=== PATIENT | male | born 1950 | race Caucasian/White ===

== ENCOUNTER → 2017-08-11 12:05 | Outpatient (CLI) | payer MEDICARE, OTHER, SELFPAY ==
[2017-08-11 13:21] LABS: Amphetamine Urine VISTA NEGATIVE (<1000 ng/mL); Barbiturate Urine VISTA NEGATIVE (< 200 ng/mL); Benzodiazepine Urine VISTA NEGATIVE (< 200 ng/mL); Cocaine Urine VISTA NEGATIVE (< 300 ng/mL); Ecstacy Urine VISTA NEGATIVE (< 500 ng/mL); Methadone Urine VISTA NEGATIVE (< 300 ng/mL); PCP Urine VISTA NEGATIVE (< 25 ng/mL); THC Urine VISTA NEGATIVE (< 50 ng/mL); Vista UDS pH Range 5
== END ==
PROVIDERS: Visit Provider Anesthesiology Pain Medicine
DX: F11.20 Opioid dependence, uncomplicated (principal)
CPT/HCPCS: 80307

== ENCOUNTER → 2019-12-07 15:59 | Outpatient (CLI) | payer MEDICARE, SELFPAY ==
[2013-05-03 09:40] VITALS: BMI 42.3
[2019-12-07 16:47] LABS: Amphetamine Urine VISTA NEGATIVE (<1000 ng/mL); Barbiturate Urine VISTA NEGATIVE (< 200 ng/mL); Benzodiazepine Urine VISTA NEGATIVE (< 200 ng/mL); Cocaine Urine VISTA NEGATIVE (< 300 ng/mL); Ecstacy Urine VISTA NEGATIVE (< 500 ng/mL); Methadone Urine VISTA NEGATIVE (< 300 ng/mL); PCP Urine VISTA NEGATIVE (< 25 ng/mL); THC Urine VISTA NEGATIVE (< 50 ng/mL); Vista UDS pH Range 6
== END ==
PROVIDERS: Referring Provider Anesthesiology Pain Medicine; Visit Provider Anesthesiology Pain Medicine
DX: F11.20 Opioid dependence, uncomplicated (principal)
CPT/HCPCS: 80307

== ENCOUNTER → 2020-07-03 16:03 | Outpatient (CLI) | payer MEDICARE, MEDICAID, SELFPAY ==
[2013-05-03 09:40] VITALS: BMI 42.3
[2020-07-03 17:16] LABS: Amphetamine Urine VISTA NEGATIVE (<1000 ng/mL); Barbiturate Urine VISTA NEGATIVE (< 200 ng/mL); Benzodiazepine Urine VISTA NEGATIVE (< 200 ng/mL); Cocaine Urine VISTA NEGATIVE (< 300 ng/mL); Ecstacy Urine VISTA NEGATIVE (< 500 ng/mL); Methadone Urine VISTA NEGATIVE (< 300 ng/mL); PCP Urine VISTA NEGATIVE (< 25 ng/mL); THC Urine VISTA NEGATIVE (< 50 ng/mL); Vista UDS pH Range 5
== END ==
PROVIDERS: Referring Provider Anesthesiology Pain Medicine; Visit Provider Anesthesiology Pain Medicine
DX: F11.20 Opioid dependence, uncomplicated (principal)
CPT/HCPCS: 80307

== ENCOUNTER 2022-11-06 14:09 | Emergency (ER) | payer MEDICARE, MEDICAID, SELFPAY ==
[2022-11-06 14:11] VITALS: BP 151/76; PULSE 81; RESP 20; TEMP 36.6; O2SAT 94; BMI 48.2
--- NOTE | 2022-11-06 15:26 | EX.ED.VISEXT ---
HPI <BRANT Chávez - Last Filed: 11/06/22 17:14> History of Present Illness Chief Complaint: Bite Narrative Narrative: Patient presenting today due concerns for an infection to the posterior aspect of his left hand. He reports that he was scratched by his son's cat on 11/04/2022, the cat did not bite him. Since then, the area has became more red and slightly edematous. He has not noticed any streaking. He has not had any fevers, chills, abdominal pain, nausea, or vomiting. He reports a history of diabetes mellitus. Tetanus is up-to-date. ROS <BRANT Chávez - Last Filed: 11/06/22 17:14> ROS ED Constitutional Constitutional ED: Denies chills or fever(s) Cardiovascular Cardiovascular: Denies chest pain Respiratory/Chest Respiratory/Chest: Denies cough or dyspnea Gastrointestinal Gastrointestinal: Denies abdominal pain, nausea or vomiting Musculoskeletal Musculoskeletal: Reports arthralgias; Denies myalgias Integumentary Reports Abrasions; Denies abscess Neurologic Neurologic: Denies paresthesias or weakness PFSH <BRANT Chávez - Last Filed: 11/06/22 17:14> [facility] Medical History Dementia Diabetes Gout HTN (hypertension) Kidney disease Home Medications Klor-Con M10 20 meq PO DAILY 05/03/13 [History Last Taken Unknown] allopurinol 100 mg tablet 100 mg PO DAILYCM 05/03/13 [History Last Taken Unknown] buspirone 15 mg tablet 37.5 mg PO DAILY 05/03/13 [History Last Taken Unknown] celecoxib 200 mg capsule 200 mg PO DAILY 05/03/13 [History Last Taken Unknown] clonazepam 2 mg tablet (Klonopin) 2 mg PO BID 05/03/13 [History Last Taken Unknown] fenofibrate nanocrystallized 145 mg tablet 145 mg PO DAILY 05/03/13 [History Last Taken Unknown] fentanyl 25 mcg/hr transdermal patch 25 mcg TRANSDERM. Q72H 05/03/13 [History Last Taken Unknown] furosemide 40 mg tablet 40 mg PO DAILY 05/03/13 [History Last Taken Unknown] gabapentin 800 mg tablet 800 mg PO TIDCM 05/03/13 [History Last Taken Unknown] metformin 500 mg tablet 500 mg PO TIDCM 05/03/13 [History Last Taken Unknown] sryzcrmc-zsg-aiisc acid 0.4 mg-lycopene 300 mcg-lutein 250 mcg tablet (Centrum Silver) 1 ea PO DAILY 05/03/13 [History Last Taken Unknown] orphenadrine citrate 100 mg tablet,extended release 100 mg PO BID 05/03/13 [History Last Taken Unknown] ramipril 10 mg capsule 10 mg PO DAILY 05/03/13 [History Last Taken Unknown] rosuvastatin 10 mg tablet 10 mg PO DAILY 05/03/13 [History Last Taken Unknown] warfarin 4 mg tablet (Jantoven) 4 mg PO DAILY 05/03/13 [History Last Taken Unknown] cephalexin 500 mg capsule 500 mg PO Q6 7 days #28 CAPSULES 11/06/22 [Rx Last Taken Unknown] Allergy/AdvReac Type Severity Reaction Status Date / Time ibuprofen AdvReac Abd Verified 11/06/22 14:17 cramps/diarrhea Surgical History H/O knee surgery History of left shoulder replacement Social History Smoking Status: Never smoker EXAM <BRANT Chávez - Last Filed: 11/06/22 17:14> Physical Exam Const Vital Signs: 11/06/22 14:11 11/06/22 16:37 Temperature 98 F 97.8 F Temperature Source Temporal Oral Pulse Rate 81 72 Respiratory Rate 20 H 18 Blood Pressure 151/76 H 154/91 H Blood Pressure Mean 101 112 Pulse Ox 94 96 Oxygen Delivery Method Room Air Room Air Positive well nourished, well developed and no apparent distress General Appearance ED: well developed HEENT Reports normocephalic and head/scalp atraumatic Mouth ED: Yes moist mucous membranes normal Eyes PERRL and EOMs intact bilaterally Neck full ROM and supple Chest Wall inspection of chest normal Resp normal respiratory effort and clear to auscultation bilaterally Cardio regular rate and regular rhythm GI soft to palpation, non-tender, non-distended and no masses Back/Spine normal ROM and normal to inspection Extremity normal to inspection and full ROM Extremity Narrative: Erythema to the dorsal aspect of the left hand. Scabbed laceration to the dorsal aspect of the hand. No lymphangitic streaking. Radial pulses 2+ and equal bilaterally, good capillary refill, sensation intact. full range of motion to the wrist and fingers. Neuro oriented x3, CN's II-XII intact bilaterally, moves all extremities, no focal motor deficits and no sensory deficits noted Sensorium / Orientation: awake and alert Psych mental status grossly normal and thought process normal <Dr. Beni Milian MD - Last Filed: 11/08/22 14:57> Physical Exam Const Vital Signs: 11/06/22 14:11 11/06/22 16:37 Temperature 98 F 97.8 F Temperature Source Temporal Oral Pulse Rate 81 72 Respiratory Rate 20 H 18 Blood Pressure 151/76 H 154/91 H Blood Pressure Mean 101 112 Pulse Ox 94 96 Oxygen Delivery Method Room Air Room Air MDM <BRANT Chávez - Last Filed: 11/06/22 17:14> [facility] MDM Narrative Medical decision making narrative: Please presenting today due to concerns for an infection to the dorsal aspect of his left hand after he was scratched by his son's house cat 11/04/2022. He does have erythema to the dorsal aspect of his left hand with a scabbed scratch qu[place]. He does not have any exam findings that would be concerning for cat scratch fever. Because he is a diabetic, labs obtained and are unremarkable aside from hyperglycemia. He was given a dose of Ancef here. He will be discharged home in stable condition with Keflex and is to follow-up with his PCP. He has been given return instructions and is comfortable with plan. Lab Data Labs: Laboratory Results - last 24 hr 11/06/22 15:25 WBC 6.3 RBC 4.45 L Hgb 13.8 Hct 42.1 MCV 94.6 H MCH 31.0 MCHC 32.8 RDW Std Deviation 52.6 H RDW Coeff of Veronica 15.2 H Plt Count 106 L MPV 8.8 Immature Gran % (Auto) 1.300 H Neut % (Auto) 70.7 H Lymph % (Auto) 18.3 L [place] % (Auto) 6.4 Eos % (Auto) 2.7 Baso % (Auto) 0.6 Absolute Neuts (auto) 4.4 Absolute Lymphs (auto) 1.15 Nucleated RBC % 0 Sodium 137 Potassium 4.2 Chloride 104 Carbon Dioxide 29.0 Anion Gap 4 L BUN 16 Creatinine 1.38 H Estim Creat Clear Calc 47.67 Est GFR (MDRD) Af Amer 65 Est GFR (MDRD) Non-Af 54 L BUN/Creatinine Ratio 11.6 Glucose 310 H Calcium 8.6 <Dr. Beni Milian MD - Last Filed: 11/08/22 14:57> [facility] Lab Data Attestation: I reviewed the patient's lab results. Labs: Laboratory Results - last 24 hr 11/06/22 15:25 WBC 6.3 RBC 4.45 L Hgb 13.8 Hct 42.1 MCV 94.6 H MCH 31.0 MCHC 32.8 RDW Std Deviation 52.6 H RDW Coeff of Veronica 15.2 H Plt Count 106 L MPV 8.8 Immature Gran % (Auto) 1.300 H Neut % (Auto) 70.7 H Lymph % (Auto) 18.3 L [place] % (Auto) 6.4 Eos % (Auto) 2.7 Baso % (Auto) 0.6 Absolute Neuts (auto) 4.4 Absolute Lymphs (auto) 1.15 Nucleated RBC % 0 Sodium 137 Potassium 4.2 Chloride 104 Carbon Dioxide 29.0 Anion Gap 4 L BUN 16 Creatinine 1.38 H Estim Creat Clear Calc 47.67 Est GFR (MDRD) Af Amer 65 Est GFR (MDRD) Non-Af 54 L BUN/Creatinine Ratio 11.6 Glucose 310 H Calcium 8.6 Treatment and Re-Evaluation Narrative: Seen and evaluated independently and in conjunction with physician editorial assistant. Agree with notes above unless documented otherwise. Scratched by his cat 2 days ago, on the left hand. Has gradually become more red, swollen, painful. No discharge or bleeding. No fevers or systemic symptoms. Is a poorly controlled diabetic. Was not bitten by the cat. Exam: Swollen erythematous tender area on the dorsum of the left hand without lymphangitis or abscess. There are healing scratch haro without active bleeding or discharge expressible. Full range of motion of the hand and the fingers without difficulty. No epitrochlear or axillary lymphadenopathy palpable. Plan: Labs, antibiotics, suspect discharge home with close outpatient follow-up. Does not necessarily look like cat scratch fever, so I think reasonable to cover regular strep and staph rather than Bartonella at this time. Discharge Plan Triage Chief Complaint: Bite ED Midlevel Provider: Elicia Blair ED Provider: Beni Milian Dx/Rx/DC Orders Clinical Impression: Cellulitis, Cat scratch of left hand with infection Instructions: Animal Bites and Scratches, ED Cellulitis Prescriptions: New cephalexin 500 mg capsule 500 mg PO Q6 7 Days Qty: 28 0RF No Action celecoxib 200 MG capsule 200 mg PO DAILY furosemide 40 MG tablet 40 mg PO DAILY metformin 500 MG tablet 500 mg PO TIDCM allopurinol 100 MG tablet 100 mg PO DAILYCM warfarin [Jantoven] 4 MG tablet 4 mg PO DAILY gabapentin 800 MG tablet 800 mg PO TIDCM clonazepam [Klonopin] 2 MG tablet 2 mg PO BID orphenadrine citrate 100 MG tablet 100 mg PO BID fentanyl 25 MCG patch 25 mcg TRANSDERM. Q72H ramipril 10 MG capsule 10 mg PO DAILY buspirone 15 MG tablet 37.5 mg PO DAILY rosuvastatin 10 MG tablet 10 mg PO DAILY xbtfxamm-xgf-OE-lycopen-lutein [Centrum Silver] 1 EACH tablet 1 ea PO DAILY fenofibrate nanocrystallized 145 MG tablet 145 mg PO DAILY Klor-Con M10 20 MEQ tablet 20 meq PO DAILY Primary Care Provider: Care Physician,No Primary Referrals: Care Physician,No Primary [Primary Care Provider] - Activity Restrictions/Additional Instructions: Please follow-up with your doctor in 3 to 5 days return for any worsening of symptoms. Disposition Disposition: Home, Self Care Discharge Date/Time: 11/06/22 17:20
[2022-11-06 15:32] LABS: Absolute Lymphocyte Count 1.15 X10^3/uL (0.83-4.51); Absolute Neutrophil Count 4.4 X10^3/uL (2.0-7.7); Basophil# 0.04 X10^3/uL; Basophil% 0.6 % (0-1); Eosinophil# 0.17 X10^3/uL; Eosinophils% 2.7 % (0-5); Hematocrit 42.1 % (40-54); Hemoglobin 13.8 g/dL (13.0-16.5); Lymphocyte # 1.15 X10^3/ul (0.83-4.51); Lymphocyte % 18.3 % (19-41); Mean Corp Hgb Conc 32.8 g/dL (32-36); Mean Corpuscular Volume 94.6 fL (80-94); Mean Platelet Vol. 8.8 fl (6.2-12.0); Monocyte% 6.4 % (0-10); NRBC Flagged by Analyzer 0 % (0-5); Neutrophil # 4.43 X10^3/uL (2.7-7.7); Neutrophil % 70.7 % (47-70); Platelet Count 106 K/mm3 (150-450); RBC Distribution Width CV 15.2 % (11.6-14.6); RBC Distribution Width SD 52.6 fl (35.1-43.9); Red Blood Count 4.45 M/mm3 (4.6-6.2); White Blood Count 6.3 K/mm3 (4.4-11.0)
[2022-11-06 15:44] LABS: Anion Gap 4 (5-15); BUN 16 mg/dL (7-18); BUN/Creat Ratio 11.6 RATIO (10-20); Calcium,Total 8.6 mg/dL (8.5-10.1); Chloride 104 mmol/L (98-107); Creatinine, Serum 1.38 mg/dL (0.70-1.30); EST Glomerular Filtration Rate 54 mL/min (>60); Est Glom Filt Rate - Afr Amer 65 mL/min (>60); Estimated Creatinine Clearance 47.67 ml/min; Glucose 310 mg/dL (74-106); Potassium 4.2 mmol/L (3.5-5.1); Sodium Level 137 mmol/L (136-145)
[2022-11-06] MEDS: Cefazolin 1 GM/50 ML BAG IV (16:31)
[2022-11-06 16:37] VITALS: BP 154/91; PULSE 72; RESP 18; TEMP 36.6; O2SAT 96
== END 2022-11-06 17:20 | disposition home or self-care (01) ==
PROVIDERS: Physician Assistant; Emergency Provider Emergency Medicine; Visit Provider Emergency Medicine
DX: L03.114 Cellulitis of left upper limb (principal); E11.65 Type 2 diabetes mellitus with hyperglycemia; I10 Essential (primary) hypertension; Z79.899 Other long term (current) drug therapy; Z79.84 Long term (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 of oral hypoglycemic drugs; W55.03XA Scratched by cat, initial encounter; B99.8 Other infectious disease
CPT/HCPCS: 80048; 85025; 96365; 99285; J7050

== ENCOUNTER 2024-03-18 10:51 | Emergency (ER) | payer MEDICARE, MEDICAID, SELFPAY ==
[2024-03-18 10:52] VITALS: BP 158/69; PULSE 79; RESP 18; TEMP 36.6; O2SAT 95; BMI 46.9
[2024-03-18 10:56] VITALS: BP 158/69; PULSE 81; RESP 18; TEMP 36.6; O2SAT 96
--- NOTE | 2024-03-18 11:27 | EX.ED.DYSGE1 ---
HPI <BRANT Chávez - Last Filed: 03/18/24 16:15> History of Present Illness Chief Complaint: Wound Narrative Narrative: Patient presenting today due to a wound that he has had to the dorsum of his left foot for about 3 to 4 months, he reports that it is progressively worsening. He also reports that he has had a nonproductive cough for over a week. His encouraged him to come in to be evaluated. He has never seen his doctor or a speech pathology supervisor for this wound, it is being managed at home. He denies any fevers, chills, shortness of breath, chest pain, abdominal pain, nausea, and vomiting. He does have a history of T2DM, HTN, HLD, and CKD. [facility] <BRANT Chávez - Last Filed: 03/18/24 16:15> [facility] Medical History Kidney disease Gout Dementia Diabetes HTN (hypertension) Home Medications ?Medication ?Instructions ?Recorded ?Last Taken ?Type allopurinol 100 mg tablet 100 mg PO DAILYCM 05/03/13 Unknown History gabapentin 800 mg tablet 800 mg PO TIDCM 05/03/13 Unknown History vsuvuncb-nxt-cucgx acid 0.4 1 ea PO DAILY 05/03/13 Unknown History mg-lycopene 300 mcg-lutein 250 mcg tablet (Centrum Silver) rosuvastatin 10 mg tablet 10 mg PO DAILY 05/03/13 Unknown History albuterol sulfate 90 mcg/actuation 2 puff inhalation PRN sob 03/18/24 Unknown History aerosol inhaler atorvastatin 10 mg tablet 10 mg PO QPM 03/18/24 Unknown History donepezil 10 mg tablet 10 mg PO QHS 03/18/24 Unknown History dulaglutide 3 mg/0.5 mL 3 mg subcut QWEEK 03/18/24 Unknown History subcutaneous pen injector (Trulicity) duloxetine 60 mg capsule,delayed 60 mg PO DAILY 03/18/24 Unknown History release empagliflozin 25 mg tablet 25 mg PO DAILY 03/18/24 Unknown History (Jardiance) ezetimibe 10 mg tablet 10 mg PO DAILY 03/18/24 Unknown History glipizide 10 mg tablet, extended 10 mg PO DAILY 03/18/24 Unknown History release 24 hr insulin glargine 100 unit/mL (3 75 unit subcut QPM 03/18/24 Unknown History mL) subcutaneous pen (Basaglar KwikPen U-100 Insulin) levothyroxine 50 mcg tablet 50 mcg PO DAILY 03/18/24 Unknown History lisinopril 2.5 mg tablet 2.5 mg PO DAILY 03/18/24 Unknown History pramipexole 0.125 mg tablet 0.125 mg PO BID 03/18/24 Unknown History quetiapine 100 mg tablet 100 mg PO BID 03/18/24 Unknown History quetiapine 50 mg tablet 50 mg PO DAILY 03/18/24 Unknown History rivaroxaban 20 mg tablet (Xarelto) 20 mg PO DAILY 03/18/24 Unknown History tizanidine 4 mg tablet 4 mg PO QPM 03/18/24 Unknown History tramadol 50 mg tablet 50 mg PO 4X/DAY PRN PRN pain 03/18/24 Unknown History trazodone 50 mg tablet 100 mg PO BID 03/18/24 Unknown History Allergy/AdvReac Type Severity Reaction Status Date / Time ibuprofen AdvReac Abd Verified 03/18/24 10:57 cramps/diarrhea Surgical History History of left shoulder replacement H/O knee surgery Social History Smoking Status: Never smoker ROS <BRANT Chávez - Last Filed: 03/18/24 16:15> ROS ED Constitutional Constitutional ED: Denies chills or fever(s) Cardiovascular Cardiovascular: Denies chest pain Respiratory/Chest Respiratory/Chest: Reports cough; Denies dyspnea, tachypnea or wheezing Gastrointestinal Gastrointestinal: Denies abdominal pain, nausea or vomiting Musculoskeletal Musculoskeletal: Denies arthralgias or myalgias Integumentary Reports other Details: Chronic left foot wound Neurologic Neurologic: Denies weakness EXAM <BRANT Chávez - Last Filed: 03/18/24 16:15> Physical Exam Const Vital Signs: 03/18/24 10:52 03/18/24 10:56 03/18/24 11:56 Temperature 97.8 F 97.8 F 98.2 F Temperature Source Oral Oral Oral Pulse Rate 79 81 77 Respiratory Rate 18 18 16 Blood Pressure 158/69 H 158/69 H 140/66 H Blood Pressure Mean 98 98 90 Pulse Ox 95 96 94 Oxygen Delivery Method Room Air Room Air Room Air 03/18/24 12:00 03/18/24 13:02 Temperature 98.2 F 97.9 F Temperature Source Oral Temporal Pulse Rate 76 69 Respiratory Rate 14 21 H Blood Pressure 140/66 H 140/55 H Blood Pressure Mean 90 83 Pulse Ox 95 97 Oxygen Delivery Method Room Air Room Air Positive well nourished, well developed and no apparent distress General Appearance ED: well developed HEENT Reports normocephalic and head/scalp atraumatic Mouth ED: Yes moist mucous membranes normal Eyes PERRL and EOMs intact bilaterally Neck full ROM and supple Chest Wall inspection of chest normal Resp normal respiratory effort and clear to auscultation bilaterally Cardio regular rate and regular rhythm GI soft to palpation, non-tender, non-distended and no masses Back/Spine normal ROM and normal to inspection Extremity full ROM Extremity Narrative: Ulcerative wound to the dorsum of the left foot with eschar and minimal surrounding erythema, no purulent discharge noted. Neuro oriented x3, CN's II-XII intact bilaterally, moves all extremities, no focal motor deficits and no sensory deficits noted Sensorium / Orientation: awake and alert Psych mental status grossly normal and thought process normal Skin Skin Narrative: Ulcerative wound left foot Rashes: No rashes noted <Dr. Aviva Brandt DO - Last Filed: 03/18/24 16:07> Physical Exam Const Vital Signs: 03/18/24 10:52 03/18/24 10:56 03/18/24 11:56 Temperature 97.8 F 97.8 F 98.2 F Temperature Source Oral Oral Oral Pulse Rate 79 81 77 Respiratory Rate 18 18 16 Blood Pressure 158/69 H 158/69 H 140/66 H Blood Pressure Mean 98 98 90 Pulse Ox 95 96 94 Oxygen Delivery Method Room Air Room Air Room Air 03/18/24 12:00 03/18/24 13:02 Temperature 98.2 F 97.9 F Temperature Source Oral Temporal Pulse Rate 76 69 Respiratory Rate 14 21 H Blood Pressure 140/66 H 140/55 H Blood Pressure Mean 90 83 Pulse Ox 95 97 Oxygen Delivery Method Room Air Room Air MDM <BRANT Chávez - Last Filed: 03/18/24 16:15> [facility] MDM Narrative Medical decision making narrative: Patient presenting today due to a cough and wound to his left foot. He initially told me that he has had the wound on his foot for a few weeks, however, he is a poor historian, his did arrive to the ED and reported that the wound has been on his foot over the past 2 or 3 days and was caused by new slippers that he had been wearing. He also has had a cough for about a week. He had a outpatient chest x-ray that showed pneumonia and was prescribed doxycycline which has not been picked up yet from the pharmacy. He does have a speech pathology supervisor that he can see. The wound is located on the dorsum of his left foot and has surrounding erythema, there is eschar, some of this was deroofed today and I did not notice any purulent discharge beneath it. Labs were obtained, ESR and CRP slightly elevated, creatinine and BUN slightly elevated in comparison to previous labs. Chest x-ray obtained, does not show any evidence of pneumonia. Left foot x-ray does not show any evidence of osteomyelitis. I recommended that he begin taking the doxycycline to cover both his foot and lung infection. He is to follow-up with the speech pathology supervisor within the next week. He will be discharged home in stable condition. Return instructions were discussed. Lab Data Attestation: I reviewed the patient's lab results. Lab results narrative: Platelet count 112, ESR 424, BUN 25, creatinine 1.87, glucose 199, CRP 26 Labs: Laboratory Results - last 24 hr 03/18/24 11:26 WBC 6.9 RBC 4.34 L Hgb 13.7 Hct 41.8 MCV 96.3 H MCH 31.6 MCHC 32.8 RDW Std Deviation 53.0 H RDW Coeff of Veronica 15.0 H Plt Count 112 L MPV 9.4 Immature Gran % (Auto) 1.000 H Neut % (Auto) 67.4 Lymph % (Auto) 21.2 [place] % (Auto) 7.5 Eos % (Auto) 2.3 Baso % (Auto) 0.6 Absolute Neuts (auto) 4.7 Absolute Lymphs (auto) 1.47 Nucleated RBC % 0 ESR 24 H Sodium 136 Potassium 4.8 Chloride 107 Carbon Dioxide 24.0 Anion Gap 5 BUN 25 H Creatinine 1.87 H Estim Creat Clear Calc 49.07 Est GFR (MDRD) Af Amer 46 L Est GFR (MDRD) Non-Af 38 L BUN/Creatinine Ratio 13.4 Glucose 199 H Calcium 9.2 C-React Prot Ext Range 26.00 H Radiography X-Ray: Read by ED Physician Diagnostic Testing: Clinical Impression(s) from Imaging Studies Chest X-Ray 03/18/24 11:30 IMPRESSION: Normal x-ray examination of the chest. Electronically Signed: Azar Hsu MD at 12:32 EST , <Dr. Aviva Brandt, DO - Last Filed: 03/18/24 16:07> [facility] MDM Narrative Medical decision making narrative: Patient presenting today due to a cough and wound to his left foot. He initially told me that he has had the wound on his foot for a few weeks, however, he is a poor historian, his did arrive to the ED and reported that the wound has been on his foot over the past 2 or 3 days and was caused by new slippers that he had been wearing. He also has had a cough for about a week. He had a outpatient chest x-ray that showed pneumonia and was prescribed doxycycline which has not been picked up yet from the pharmacy. He does have a speech pathology supervisor that he can see. The wound is located on the dorsum of his left foot and has surrounding erythema, there is eschar, some of this was deroofed today and I did not notice any purulent discharge beneath it. Labs were obtained, ESR and CRP slightly elevated, creatinine and BUN slightly elevated in comparison to previous labs. Chest x-ray obtained, does not show any evidence of pneumonia. Left foot x-ray does not show any evidence of osteomyelitis. I recommended that he begin taking the doxycycline to cover both his foot and lung infection. He is to follow-up with the speech pathology supervisor within the next week. He will be discharged home in stable condition. Return instructions were discussed. Karly I have personally performed a face to face assessment of the patient and have reviewed the FARHAT Note. I performed a substantive portion of the visit including all aspects of the following. My valdivia findings include: History is patient is a 73-year-old male with history of diabetes, peripheral neuropathy, hypertension and chronic anticoagulation on Xarelto. He is presenting to the ER for a wound on his the dorsal aspect of his left foot that initially he told staff had been there for couple months with the is now at the bedside and states it has been there for 2 weeks. In addition he has had a cough. Apparently he had an outpatient chest x-ray that was performed yesterday and they were told he has pneumonia and he was sent and antibiotics. not sure which antibiotics lower. Ultimately was determined it was doxycycline. Patient is minimally ambulatory at baseline and is not hypoxic at rest. Chest x-ray reviewed by myself as well as radiology does not show any acute infiltrate. Physical exam patient is in no acute respiratory distress. He has clear breath sounds. He is not coughing at this time. Abdomen soft nontender. Heart regular rate and rhythm. No peripheral edema appreciated. Patient does have proximately 2 cm eschar on the dorsum of the foot with no underlying fluctuance. There is surrounding erythema and induration. No associate lymphangitic streaking. Well patient is notable leukocytosis he does have a mild left shift. His CRP is mildly elevated at 26 and he has a creatinine that is elevated 1.87 however this appears to be near the patient's baseline (was 1.38 over a year ago). Patient is mildly hyperglycemic with a glucose of 199 today. He has a normal anion gap and normal bicarb. X-ray of the foot does not show any acute fracture, free air or bony lesions concerning for osteomyelitis. Patient will continue taking his doxycycline which will cover for a cellulitis of the foot as well as for this pneumonia that was diagnosed on outpatient x-ray. Wound is deroofed by PA however there is no underlying abscess or purulence thankfully. Patient will follow-up outpatient with his speech pathology supervisor as well. Lab Data Labs: Laboratory Results - last 24 hr 03/18/24 11:26 WBC 6.9 RBC 4.34 L Hgb 13.7 Hct 41.8 MCV 96.3 H MCH 31.6 MCHC 32.8 RDW Std Deviation 53.0 H RDW Coeff of Veronica 15.0 H Plt Count 112 L MPV 9.4 Immature Gran % (Auto) 1.000 H Neut % (Auto) 67.4 Lymph % (Auto) 21.2 [place] % (Auto) 7.5 Eos % (Auto) 2.3 Baso % (Auto) 0.6 Absolute Neuts (auto) 4.7 Absolute Lymphs (auto) 1.47 Nucleated RBC % 0 ESR 24 H Sodium 136 Potassium 4.8 Chloride 107 Carbon Dioxide 24.0 Anion Gap 5 BUN 25 H Creatinine 1.87 H Estim Creat Clear Calc 49.07 Est GFR (MDRD) Af Amer 46 L Est GFR (MDRD) Non-Af 38 L BUN/Creatinine Ratio 13.4 Glucose 199 H Calcium 9.2 C-React Prot Ext Range 26.00 H Radiography Diagnostic Testing: Clinical Impression(s) from Imaging Studies Chest X-Ray 03/18/24 11:30 IMPRESSION: Normal x-ray examination of the chest. Electronically Signed: Azar Hsu MD at 12:32 EST , Discharge Plan Triage Chief Complaint: Wound ED Midlevel Provider: Elicia Blair ED Provider: Aviva Brandt Dx/Rx/DC Orders Clinical Impression: Wound of foot, Cough Instructions: Acute Bronchitis, ED Wound Check (Infection) Prescriptions: No Action allopurinol 100 MG tablet 100 mg PO DAILYCM gabapentin 800 MG tablet 800 mg PO TIDCM rosuvastatin 10 MG tablet 10 mg PO DAILY Centrum Silver 1 EACH tablet 1 ea PO DAILY albuterol sulfate 90 mcg/actuation HFA aerosol inhaler 2 puff inhalation PRN donepezil 10 mg tablet 10 mg PO QHS Trulicity 3 mg/0.5 mL pen injector 3 mg subcut QWEEK duloxetine 60 mg capsule,delayed release(DR/EC) 60 mg PO DAILY lisinopril 2.5 mg tablet 2.5 mg PO DAILY pramipexole 0.125 mg tablet 0.125 mg PO BID quetiapine 100 mg tablet 100 mg PO BID quetiapine 50 mg tablet 50 mg PO DAILY trazodone 50 mg tablet 100 mg PO BID tizanidine 4 mg tablet 4 mg PO QPM tramadol 50 mg tablet 50 mg PO 4X/DAY PRN PRN (Reason: pain) Xarelto 20 mg tablet 20 mg PO DAILY Rx Instructions: must administer with evening meal atorvastatin 10 mg tablet 10 mg PO QPM ezetimibe 10 mg tablet 10 mg PO DAILY glipizide 10 mg tablet extended release 24hr 10 mg PO DAILY Jardiance 25 mg tablet 25 mg PO DAILY levothyroxine 50 mcg tablet 50 mcg PO DAILY insulin glargine [Basaglar KwikPen U-100 Insulin] 100 unit/mL (3 mL) insulin pen 75 unit subcut QPM Primary Care Provider: Care Physician,No Primary Referrals: Care Physician,No Primary [Primary Care Provider] - Activity Restrictions/Additional Instructions: Please follow-up with the speech pathology supervisor in the next 5 to 7 days and return for any worsening of your symptoms. Print Language: Telugu Disposition Disposition: Home, Self Care Discharge Date/Time: 03/18/24 13:37
--- NOTE | 2024-03-18 11:30 | RAD_ITS ---
STUDY: X-RAY CHEST REASON FOR EXAM: Male, 73 years old. cough TECHNIQUE: Single AP portable view of the chest. COMPARISON: None. FINDINGS: The lungs are clear and expanded. There is no demonstrated pleural abnormality. Normal size heart. Normal mediastinum and clifford. Normal visualized pulmonary arteries. Normal visualized aortic arch and descending thoracic aorta. Normal visualized thoracic spine. Status post left shoulder replacement. There is no demonstrated abnormality of the visualized soft tissue structures of the upper abdomen. RAD/Chest PA and Lateral IMPRESSION: Normal x-ray examination of the chest. Electronically Signed: Azar Hsu MD at 12:32 EST ,
--- NOTE | 2024-03-18 11:30 | RAD_ITS ---
STUDY: X-RAY - LEFT FOOT CLINICAL: Male, 73 years old. Dorsal wound. TECHNIQUE: 3 view(s) of the foot. COMPARISON: None. FINDINGS: Calcaneal spurs. Normal visualized subtalar, talonavicular, calcaneocuboid, tarsal and tarsometatarsal articulations. Normal metatarsi. There is degenerative arthrosis of the metatarsophalangeal joint of the hallux . Normal tibial and fibular sesamoid bones. Normal interphalangeal joint of the great toe. Normal phalanges of the great toe. Normal second through fifth metatarsophalangeal joints. Normal interphalangeal joints and phalanges of the lesser toes. Soft tissue swelling. Vascular calcification. RAD/Foot min 3 Views IMPRESSION: Soft tissue swelling and vascular calcification. Electronically Signed: Azar Hsu MD at 12:32 EST ,
[2024-03-18 11:42] LABS: Absolute Lymphocyte Count 1.47 X10^3/uL (0.83-4.51); Absolute Neutrophil Count 4.7 X10^3/uL (2.0-7.7); Basophil# 0.04 X10^3/uL; Basophil% 0.6 % (0-1); Eosinophil# 0.16 X10^3/uL; Eosinophils% 2.3 % (0-5); Hematocrit 41.8 % (40-54); Hemoglobin 13.7 g/dL (13.0-16.5); Lymphocyte # 1.47 X10^3/ul (0.83-4.51); Lymphocyte % 21.2 % (19-41); Mean Corp Hgb Conc 32.8 g/dL (32-36); Mean Corpuscular Hgb 31.6 pg (27.0-32.0); Mean Corpuscular Volume 96.3 fL (80-94); Mean Platelet Vol. 9.4 fl (6.2-12.0); Monocyte# 0.52 X10^3/uL; Monocyte% 7.5 % (0-10); NRBC Flagged by Analyzer 0 % (0-5); Neutrophil # 4.66 X10^3/uL (2.7-7.7); Neutrophil % 67.4 % (47-70); Platelet Count 112 K/mm3 (150-450); Red Blood Count 4.34 M/mm3 (4.6-6.2); White Blood Count 6.9 K/mm3 (4.4-11.0)
[2024-03-18 11:48] LABS: Anion Gap 5 (5-15); BUN 25 mg/dL (7-18); BUN/Creat Ratio 13.4 RATIO (10-20); Calcium,Total 9.2 mg/dL (8.5-10.1); Chloride 107 mmol/L (98-107); Creatinine, Serum 1.87 mg/dL (0.70-1.30); EST Glomerular Filtration Rate 38 mL/min (>60); Est Glom Filt Rate - Afr Amer 46 mL/min (>60); Estimated Creatinine Clearance 49.07 ml/min; Glucose 199 mg/dL (74-106); Potassium 4.8 mmol/L (3.5-5.1); Sodium Level 136 mmol/L (136-145)
[2024-03-18 11:56] VITALS: BP 140/66; PULSE 77; RESP 16; TEMP 36.8; O2SAT 94
[2024-03-18 11:57] LABS: Erythrocyte Sedimentation Rate 24 mm/hr (0-20)
[2024-03-18 12:00] VITALS: BP 140/66; PULSE 76; RESP 14; TEMP 36.8; O2SAT 95
[2024-03-18 13:02] VITALS: BP 140/55; PULSE 69; RESP 21; TEMP 36.6; O2SAT 97
== END 2024-03-18 13:37 | disposition home or self-care (01) ==
PROVIDERS: Physician Assistant; Emergency Provider Emergency Medicine; Visit Provider Emergency Medicine
DX: S91.302A Unspecified open wound, left foot, initial encounter (principal); F03.90 Unspecified dementia, unspecified severity, without behavioral disturbance, psychotic disturbance, mood disturbance, and anxiety; E11.22 Type 2 diabetes mellitus with diabetic chronic kidney disease; E11.42 Type 2 diabetes mellitus with diabetic polyneuropathy; E11.65 Type 2 diabetes mellitus with hyperglycemia; Z79.4 Long term (current) use of insulin; R05.9 Cough, unspecified; X58.XXXA Exposure to other specified factors, initial encounter; I12.9 Hypertensive chronic kidney disease with stage 1 through stage 4 chronic kidney disease, or unspecified chronic kidney disease; E78.5 Hyperlipidemia, unspecified; N18.9 Chronic kidney disease, unspecified; Z79.01 Long term (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 of anticoagulants; Z79.85 Long-term (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 of injectable non-insulin antidiabetic drugs; Z79.84 Long term (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 of oral hypoglycemic drugs; Z79.890 Hormone replacement therapy; Z79.899 Other long term (current) drug therapy
CPT/HCPCS: 71046; 73630; 80048; 85025; 85652; 86140; 99285; A4216

== ENCOUNTER 2024-08-19 23:46 | Inpatient (IN) | payer MEDICARE, MEDICAID, SELFPAY ==
[2024-08-19 23:48] VITALS: BP 93/50; PULSE 106; RESP 26; TEMP 37.7; O2SAT 88; O2SAT 93; BMI 44.6
[2024-08-19 23:51] VITALS: BP 93/50; PULSE 106; RESP 26; TEMP 37.7; O2SAT 93
[2024-08-20] VITALS (24 sets, daily range): BP systolic 75–147; BP diastolic 39–74; PULSE 66–100; RESP 9–24; TEMP 36.7–38.8; O2SAT 94–98; BMI 45.1
[2024-08-20] MEDS: NORMAL SALINE 999 ML IV
--- NOTE | 2024-08-20 00:08 | CT_ITS ---
PROCEDURE: CTA CHEST W/WO CONTRAST 08/20/2024 REASON FOR EXAM: HYPOXIA TECHNIQUE: CTA imaging of the chest with intravenous contrast. Coronal and Sagittal reconstruction series were provided. Maximum intensity projection (MIPs) Volume rendering and CONTRAST: 100 cc Isovue 370 IV One or more dose reduction techniques were used (e.g., Automated exposure control, adjustment of the mA and/or kV according to patient size, use of iterative reconstruction technique). RADIATION DOSE SUMMARY: CTDlvol: 47.49 mGy DLP: 557.96 mGycm COMPARISON: None available FINDINGS: Appearance of possible inferior vena cava filter suggested on the grease cup filler views. Motion artifact significantly limits the evaluation. No large central or hilar saddle pulmonary embolism. Interlobar to subsegmental branches are not well evaluated. Thoracic aorta appears within limits. Three-vessel coronary calcification appears moderate. No pericardial or pleural effusion. Images of the upper abdomen appear unremarkable. [place] artifact from left shoulder replacement and anterior cervical disc fusion. The central airways appear patent. Motion artifact and low appearing lung volumes. Bibasilar and dependent atelectasis. No focal consolidation. CT/CTA Chest W/WO Contrast IMPRESSION: Motion artifact significantly limits the evaluation. No large central or hilar saddle pulmonary embolism. Interlobar to subsegmental branches are not well evaluated. The central airways appear patent. Motion artifact and low appearing lung volu mes. Bibasilar and dependent atelectasis. No focal consolidation. Three-vessel coronary calcification appears moderate. Reading Location: [id number]
[2024-08-20 00:27] LABS: Absolute Lymphocyte Count 0.55 X10^3/uL (0.83-4.51); Absolute Neutrophil Count 7.6 X10^3/uL (2.0-7.7); Basophil# 0.04 X10^3/uL; Basophil% 0.5 % (0-1); Eosinophil# 0.01 X10^3/uL; Eosinophils% 0.1 % (0-5); Hematocrit 37.4 % (40-54); Hemoglobin 12.7 g/dL (13.0-16.5); Lymphocyte # 0.55 X10^3/ul (0.83-4.51); Lymphocyte % 6.3 % (19-41); Mean Corpuscular Hgb 31.1 pg (27.0-32.0); Mean Corpuscular Volume 91.7 fL (80-94); Mean Platelet Vol. 9.3 fl (6.2-12.0); Monocyte# 0.43 X10^3/uL; Monocyte% 4.9 % (0-10); NRBC Flagged by Analyzer 0 % (0-5); Neutrophil # 7.57 X10^3/uL (2.7-7.7); Neutrophil % 87.2 % (47-70); POSITIVE DIFFERENTIAL YES; Platelet Count 126 K/mm3 (150-450); RBC Distribution Width CV 14.6 % (11.6-14.6); RBC Distribution Width SD 48.7 fl (35.1-43.9); Red Blood Count 4.08 M/mm3 (4.6-6.2); White Blood Count 8.7 K/mm3 (4.4-11.0)
[2024-08-20] MEDS: Vancomycin HCl 2,000 MG in 0.9% Normal Saline (500mL Bag) 500 ML 250 MG IV (00:28)
[2024-08-20] MEDS: Piperacil/Tazobactam 4.5 GM in 0.9% Normal Saline (100mL MB+) 100 ML IV (00:28)
[2024-08-20 00:41] LABS: Color, Urine Amber (Yellow); Glucose, Dipstick 1000 mg/dl (Normal); Ketone-Dipstick 5 mg/dl (Negative); Leukocyte Esterase-Dipstick 500 /ul (Negative); Nitrite-Dipstick Negative (Negative); Occult Blood-Urine 250 /ul (Negative); Protein-Dipstick 100 mg/dl (Negative); Urine Bilirubin Dipstick Negative (Negative); Urine Clarity Cloudy (Clear); Urine Urobilinogen Normal (Normal)
[2024-08-20 00:41] LABS: International Normalized Ratio 1.6; Partial Thromboplast Time 32.3 Seconds (24.1-36.2); Prothrombin Time (Protime)PT. 19.2 SECONDS (11.7-14.9)
[2024-08-20 00:48] LABS: Lactic Acid 3.4 mmol/L (0.0-2.0)
[2024-08-20] MEDS: Acetaminophen 500 MG Tablet 1000 MG PO (01:08)
[2024-08-20 01:21] LABS: ALB/GLOB Ratio 1.1 RATIO (0.9-2.4); AST(SGOT) 29 U/L (<=37); Alanine Aminotransfer ALT/SGPT 24 U/L (<=46); Albumin, Serum 3.6 g/dL (3.4-4.8); Alkaline Phosphatase 78 U/L (40-129); Anion Gap 14 (5-15); BUN 17 mg/dL (4-19); BUN/Creat Ratio 9.2 RATIO (10-20); Calcium,Total 8.8 mg/dL (7.6-11.0); Carbon Dioxide 19.8 mmol/L (21.0-32.0); Chloride 100 mmol/L (98-108); EST Glomerular Filtration Rate 36 (>60); Globulin 3.4 g/dL (2.2-4.2); Glucose 245 mg/dL (70-99); Potassium 5.3 mmol/L (3.3-5.1); Procalcitonin 0.32 ng/mL (<=0.10); Sodium Level 133 mmol/L (133-145); Total Bilirubin 0.76 mg/dL (0.00-1.30)
[2024-08-20 01:33] LABS: Bacteria 2+ /hpf (None Seen); Red Blood Cells-Urine > 100 SEEN /hpf (0-5); Squamous Epithelial Cells - UA 0-5 SEEN /hpf (0-5); White Blood Cells >100 SEEN /hpf (0-5)
[2024-08-20 01:34] LABS: Amorphous Sediment 1+; Mucous, Urine RARE /hpf (<or=2+)
--- NOTE | 2024-08-20 02:20 | PCM.HP.STD ---
HPI - General General Date of Admission: 08/20/24 Date of Service: 08/20/24 Chief Complaint: Worsening confusion with tremors and weakness HPI Narrative PATITO PORRAS, is a 74 M who presented to [facility] ED on 08/20/2024 with worsening confusion with tremors and weakness. Medical history is significant for dementia, recurrent UTI with suspected BPH and type 2 diabetes. He lives at home with his . Per family, at baseline he is alert and appears to make appropriate conversation until he begins to repeat himself. He does have weakness at baseline and uses a walker for ambulation. He has required both SNF placement and home health care in the past. He was treated for a UTI about 2 weeks ago. Earlier this evening his noted that he was becoming confused and then had an episode of significant tremors. She was unable to get him up out of bed due to weakness and confusion, so they called EMS to bring him in. On arrival to the ED BP was 93/50, heart rate 106, temp 99.8 F and satting in the low 90s on 2 L nasal cannula. UA was grossly infectious appearing. Given his hypoxia, CTA chest was obtained and was negative for PE and otherwise unremarkable. At temperature peak of 101.8 F in the ED. Given concern for urosepsis, hospitalist was contacted for admission. I saw the patient at bedside in the ED, and other family member present. Patient was fatigued appearing but did make eye contact with me and told me that he was at [facility]. However he could not answer any other questions for me and was not alert to time. He denied any pain or discomfort currently. History was obtained from and family member. He has had UTIs in the past but has never had urosepsis. He has required Marx catheter placement during hospitalizations but is never needed to go home with a Marx catheter. He does report frequent straining with urination at home and had burning with urination recently. No other acute concerns at this time. Notably, patient was completing his third liter of IV fluids when I saw him. Discussed with Dr. Brown and given that his blood pressure is still running low, plan is to place central line and begin vasopressors prior to patient being moved over to the ICU. [facility] Medical History Kidney disease Gout Dementia Diabetes HTN (hypertension) Home Medications ?Medication ?Instructions ?Recorded ?Last Taken ?Type allopurinol 100 mg tablet 100 mg PO DAILYCM 05/03/13 Unknown History gabapentin 800 mg tablet 800 mg PO TIDCM 05/03/13 Unknown History lwwkmybh-wae-eacew acid 0.4 1 ea PO DAILY 05/03/13 Unknown History mg-lycopene 300 mcg-lutein 250 mcg tablet (Centrum Silver) atorvastatin 10 mg tablet 10 mg PO QPM 03/18/24 Unknown History donepezil 10 mg tablet 10 mg PO QHS 03/18/24 Unknown History dulaglutide 3 mg/0.5 mL 3 mg subcut QWEEK 03/18/24 Unknown History subcutaneous pen injector (Trulicity) duloxetine 60 mg capsule,delayed 60 mg PO DAILY 03/18/24 Unknown History release empagliflozin 25 mg tablet 25 mg PO DAILY 03/18/24 Unknown History (Jardiance) ezetimibe 10 mg tablet 10 mg PO DAILY 03/18/24 Unknown History glipizide 10 mg tablet, extended 10 mg PO DAILY 03/18/24 Unknown History release 24 hr insulin glargine 100 unit/mL (3 75 unit subcut QPM 03/18/24 Unknown History mL) subcutaneous pen (Basaglar KwikPen U-100 Insulin) levothyroxine 50 mcg tablet 50 mcg PO DAILY 03/18/24 Unknown History lisinopril 2.5 mg tablet 2.5 mg PO DAILY 03/18/24 Unknown History pramipexole 0.125 mg tablet 0.125 mg PO BID 03/18/24 Unknown History quetiapine 100 mg tablet 100 mg PO BID 03/18/24 Unknown History quetiapine 50 mg tablet 50 mg PO DAILY 03/18/24 Unknown History rivaroxaban 20 mg tablet (Xarelto) 20 mg PO DAILY 03/18/24 Unknown History tizanidine 4 mg tablet 4 mg PO QPM 03/18/24 Unknown History tramadol 50 mg tablet 50 mg PO 4X/DAY PRN PRN pain 03/18/24 Unknown History trazodone 50 mg tablet 100 mg PO BID 03/18/24 Unknown History clonidine 0.2 mg/24 hr weekly 1 patch topical QWEEK 08/19/24 Unknown History transdermal patch Allergy/AdvReac Type Severity Reaction Status Date / Time ibuprofen AdvReac Abd Verified 08/19/24 23:53 cramps/diarrhea Surgical History History of left shoulder replacement H/O knee surgery Social History Smoking Status: Never smoker ROS Review of Systems ROS Unobtainable: due to encephalopathy Vital Signs Vital Signs Vital Signs: 08/19/24 23:48 08/19/24 23:51 08/20/24 00:08 Temperature 99.8 F H 99.8 F H Temperature Source Oral Oral Pulse Rate 106 H 106 H Respiratory Rate 26 H 26 H Blood Pressure 93/50 L 93/50 L Blood Pressure Mean 64 64 Pulse Ox 93 93 94 Oxygen Delivery Method Nasal Cannula Nasal Cannula Nasal Cannula Oxygen Flow Rate (L/min) 2 2 2 08/20/24 00:39 08/20/24 01:10 08/20/24 02:00 Temperature 101.8 F H 101.8 F H 100.8 F H Temperature Source Core Core Core Pulse Rate 100 96 85 Respiratory Rate 20 H 24 H 19 H Blood Pressure 105/39 L 82/47 L 84/51 L Blood Pressure Mean 61 58 62 Pulse Ox 96 98 96 Oxygen Delivery Method Nasal Cannula Nasal Cannula Room Air Oxygen Flow Rate (L/min) 2 2 Weight Weight: 136.8 kg Body Mass Index (BMI) 44.6 Physical Exam Const alert and no apparent distress Constitutional Narrative: Elderly male, class III obesity, fatigued but alert and able to make appropriate eye contact, alert and oriented to person and place but not time, otherwise laying back comfortably in bed and in no acute distress. General Appearance: cooperative and comfortable Orientation / Consciousness: confused HEENT normocephalic, head/scalp atraumatic, hearing grossly normal bilaterally and nasal mucous membranes and turbinates normal Eyes PERRL, EOMs intact bilaterally and conjunctivae normal Neck full ROM Chest inspection of chest normal Resp normal respiratory effort, normal air movement, no use of accessory muscles and clear to auscultation bilaterally Cardio regular rate, regular rhythm, no murmurs and peripheral pulses 2+ throughout GI normal to inspection, nondistended, normoactive bowel sounds, soft to palpation, non-tender and non-distended Back/Spine normal ROM Extremity normal to inspection and no pedal edema Skin no rashes or lesions noted Neuro moves all extremities and no focal motor deficits Results Lab / Micro Data 08/19/24 23:50 08/19/24 23:50 Labs: Laboratory Results - last 24 hr 08/19/24 23:50: WBC 8.7, RBC 4.08 L, Hgb 12.7 L, Hct 37.4 L, MCV 91.7, MCH 31.1, MCHC 34.0, RDW Std Deviation 48.7 H, RDW Coeff of Veronica 14.6, Plt Count 126 L, MPV 9.3, Immature Gran % (Auto) 1.000 H, Neut % (Auto) 87.2 H, Lymph % (Auto) 6.3 L, [place] % (Auto) 4.9, Eos % (Auto) 0.1, Baso % (Auto) 0.5, Absolute Neuts (auto) 7.6, Absolute Lymphs (auto) 0.55 L, Nucleated RBC % 0, PT 19.2 H, INR 1.6, APTT 32.3, Sodium 133, Potassium 5.3 H, Chloride 100, Carbon Dioxide 19.8 L, Anion Gap 14, BUN 17, Creatinine 1.90 H, Estim Creat Clear Calc 45.50 L, Est GFR (MDRD) Non-Af 36 L, BUN/Creatinine Ratio 9.2 L, Glucose 245 H, Lactic Acid 3.4 H*, Calcium 8.8, Total Bilirubin 0.76, AST 29, ALT 24, Alkaline Phosphatase 78, Total Protein 7.0, Albumin 3.6, Globulin 3.4, Albumin/Globulin Ratio 1.1, Procalcitonin 0.32 H 08/20/24 00:20: Urine Color Stephanie, Urine Clarity Cloudy, Urine pH 6.0, Ur Specific [place] 1.010, Urine Protein 100 H, Urine Glucose (UA) 1000 H, Urine Ketones 5 H, Urine Occult Blood 250 H, Urine Nitrite Negative, Urine Bilirubin Negative, Urine Urobilinogen Normal, Ur Leukocyte Esterase 500 H, Urine RBC > 100 SEEN, Urine WBC >100 SEEN, Ur Squamous Epith Cells 0-5 SEEN, Amorphous Sediment 1+, Urine Bacteria 2+, Urine Mucus RARE Micro: Microbiology 08/20/24 00:27 Mucosa - Nose SARS-CoV-2, Influenza & RSV (PCR) - Final Imaging Radiology Impression Chest CTA 08/20/24 00:08 IMPRESSION: Motion artifact significantly limits the evaluation. No large central or hilar saddle pulmonary embolism. Interlobar to subsegmental branches are not well evaluated. The central airways appear patent. [place] artifact and low appearing lung volumes. Bibasilar and dependent atelectasis. No focal consolidation. Three-vessel coronary calcification appears moderate. Reading Location: [id number] Assessment & Plan Assessment/Plan (1) Septic shock: (2) UTI (urinary tract infection): (3) Acute metabolic encephalopathy: PLAN: Plan Patient is a 74-year-old male who presented to [facility] ED on 08/20/2024 with worsening confusion with tremors and weakness. 1. Septic shock suspected secondary to UTI ? Admit under inpatient status to ICU. [employer] consulted. Presentation seems most consistent with urosepsis given grossly infected urine with history of UTIs, no other clear infectious source, reported chills at home and acute encephalopathy as noted below. Met sepsis criteria with SBP less than 90, lactate 3.4, acute metabolic encephalopathy as noted below. Given 3 L of IV fluids in ED and MAP remained around 65, so CBC placed in the ED and pressors initiated. Renal/bladder ultrasound ordered. No prior urine culture data available, will treat with IV Zosyn for now. Follow-up urine culture and blood cultures. 2. Acute metabolic encephalopathy in setting of dementia with behavioral disturbances ? Per family, is alert and oriented x 3 at baseline but repeats himself regularly with conversation and has poor short-term memory. Is A&O x 2 in the ED to person and place but not answering any another questions appropriately. Strongly suspect secondary to UTI as above. No recent trauma, no need for head imaging at this time. Will keep n.p.o. status for now given his confusion but hopeful he will be cleared to at least swallow medications in the morning. Continue home donepezil, quetiapine and trazodone at night. 3. Acute on chronic debility ? PT/OT/case management consulted. Patient requires walker at home and requires assistance with most activities of daily living from and other family members. Has required SNF and home health care in the past. Appreciate therapy recommendations. 4. Suspected BPH with obstructive symptoms ? No formal BPH diagnosis per but symptoms of frequent straining with urination and recurrent UTIs seem consistent with BPH. Renal/bladder ultrasound ordered as above. Marx catheter placed in the ED, will need to determine if void trial can be completed prior to discharge. 5. Type 2 diabetes mellitus with neuropathy ? Home regimen of insulin glargine 75 units at night, glipizide, Trulicity and Jardiance. Blood glucose 245 in the ED. Will treat with Lantus 35 units at night and sliding scale insulin with meals for now, adjust as needed. Notably his Jardiance will increase risk for UTIs going forward so may be reasonable to discontinue this medication on discharge. Continue home gabapentin. Chronic medical conditions: ? Class III obesity: BMI 44 on admit. Complicates hospital course, care and prognosis. ? CKD stage IIIb: Creatinine 1.90 on admit, stable at baseline. Monitor daily BMP and urine output. ? Hypertension: Holding home lisinopril and clonidine. ? Hyperlipidemia: Continue home atorvastatin and Zetia. ? Restless leg syndrome: Continue home pramipexole. ? Hypothyroidism: Continue home Synthroid. ? Chronic pain syndrome: Continue home tramadol as needed and duloxetine. ? 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 ? History of gout: Continue home allopurinol. DVT prophylaxis: Not indicated, on Xarelto CODE STATUS: DNR CCA, DNI Expected disposition: TBD Total clinical time spent by myself addressing the patient's medical issues, reviewing all the data, and collaborating with patient's care team: 75 minutes. Charges/Coding Visit Charges Inpatient E&M: 18760 Init Hosp L3
--- NOTE | 2024-08-20 02:34 | EX.ED.DYSGE1 ---
HPI History of Present Illness Chief Complaint: Alt LOC Informant: patient and family Narrative Narrative: Patient is a 74-year-old male with past medical history of hypertension insulin-dependent diabetes and dementia. 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 Family states that he is typically pleasantly confused but will hold conversations and then just simply repeat himself. They also report that he has difficulty standing on his own but can typically hold himself up with help. However beginning this afternoon he had increased lethargy and the inability to even hold himself up as he normally can when given support. They report that they felt he was warm with shaking chills this evening and gave him Tylenol. However despite trying to lower potential fever there was no change in his mental status and therefore he was brought to the hospital for evaluation. Based on the patient's history of dementia he cannot offer any further history. [facility] Medical History Kidney disease Gout Dementia Diabetes HTN (hypertension) Home Medications ?Medication ?Instructions ?Recorded ?Last Taken ?Type allopurinol 100 mg tablet 100 mg PO DAILYCM 05/03/13 Unknown History gabapentin 800 mg tablet 800 mg PO TIDCM 05/03/13 Unknown History arduudol-qer-udbje acid 0.4 1 ea PO DAILY 05/03/13 Unknown History mg-lycopene 300 mcg-lutein 250 mcg tablet (Centrum Silver) atorvastatin 10 mg tablet 10 mg PO QPM 03/18/24 Unknown History donepezil 10 mg tablet 10 mg PO QHS 03/18/24 Unknown History dulaglutide 3 mg/0.5 mL 3 mg subcut QWEEK 03/18/24 Unknown History subcutaneous pen injector (Trulicity) duloxetine 60 mg capsule,delayed 60 mg PO DAILY 03/18/24 Unknown History release empagliflozin 25 mg tablet 25 mg PO DAILY 03/18/24 Unknown History (Jardiance) ezetimibe 10 mg tablet 10 mg PO DAILY 03/18/24 Unknown History glipizide 10 mg tablet, extended 10 mg PO DAILY 03/18/24 Unknown History release 24 hr insulin glargine 100 unit/mL (3 75 unit subcut QPM 03/18/24 Unknown History mL) subcutaneous pen (Basaglar KwikPen U-100 Insulin) levothyroxine 50 mcg tablet 50 mcg PO DAILY 03/18/24 Unknown History lisinopril 2.5 mg tablet 2.5 mg PO DAILY 03/18/24 Unknown History pramipexole 0.125 mg tablet 0.125 mg PO BID 03/18/24 Unknown History quetiapine 100 mg tablet 100 mg PO BID 03/18/24 Unknown History quetiapine 50 mg tablet 50 mg PO DAILY 03/18/24 Unknown History rivaroxaban 20 mg tablet (Xarelto) 20 mg PO DAILY 03/18/24 Unknown History tizanidine 4 mg tablet 4 mg PO QPM 03/18/24 Unknown History tramadol 50 mg tablet 50 mg PO 4X/DAY PRN PRN pain 03/18/24 Unknown History trazodone 50 mg tablet 100 mg PO BID 03/18/24 Unknown History clonidine 0.2 mg/24 hr weekly 1 patch topical QWEEK 08/19/24 Unknown History transdermal patch Allergy/AdvReac Type Severity Reaction Status Date / Time ibuprofen AdvReac Abd Verified 08/19/24 23:53 cramps/diarrhea Surgical History History of left shoulder replacement H/O knee surgery Social History Smoking Status: Never smoker ROS ROS ED ROS Narrative Unable to obtain review of systems secondary to patient's history of dementia Review of Systems ROS Unobtainable: due to mental status EXAM Physical Exam Const Vital Signs: 08/19/24 23:48 08/19/24 23:51 08/20/24 00:08 Temperature 99.8 F H 99.8 F H Temperature Source Oral Oral Pulse Rate 106 H 106 H Respiratory Rate 26 H 26 H Blood Pressure 93/50 L 93/50 L Blood Pressure Mean 64 64 Pulse Ox 93 93 94 Oxygen Delivery Method Nasal Cannula Nasal Cannula Nasal Cannula Oxygen Flow Rate (L/min) 2 2 2 08/20/24 00:39 08/20/24 01:10 08/20/24 02:00 Temperature 101.8 F H 101.8 F H 100.8 F H Temperature Source Core Core Core Pulse Rate 100 96 85 Respiratory Rate 20 H 24 H 19 H Blood Pressure 105/39 L 82/47 L 84/51 L Blood Pressure Mean 61 58 62 Pulse Ox 96 98 96 Oxygen Delivery Method Nasal Cannula Nasal Cannula Nasal Cannula Oxygen Flow Rate (L/min) 2 2 2 08/20/24 02:20 08/20/24 03:00 08/20/24 03:00 Temperature 100.6 F H 99.7 F H 99.7 F H Temperature Source Core Core Pulse Rate 79 75 74 Respiratory Rate 18 18 18 Blood Pressure 90/47 L 100/53 L 100/53 L Blood Pressure Mean 61 68 68 Pulse Ox 97 98 98 Oxygen Delivery Method Nasal Cannula Nasal Cannula Oxygen Flow Rate (L/min) 2 2 Positive well nourished, well developed and obese General Appearance ED: well developed; Negative for pallor Nutritional Appearance: obese HEENT Reports dry mucous membranes HEENT Narrative: Normocephalic atraumatic No tongue or lip swelling no oral lesions no airway edema or compromise No tongue or cheek biting to suggest seizure activity No secondary findings in the posterior pharynx to suggest infection Mouth ED: Yes dry mucous membranes Mouth: dry mucous membranes Eyes PERRL and EOMs intact bilaterally General Eye ED: Negative for scleral icterus Neck supple Neck Narrative: No nuchal rigidity or meningeal signs noted Chest Wall palpation of chest normal Chest Narrative: No bony deformity or subcutaneous emphysema present Resp clear to auscultation bilaterally Resp Narrative: Breath sounds are diminished throughout but overall clear to auscultation. The patient is tachypneic and his room air pulse ox is 88% when she normally does not require supplemental O2. There is no stridor rales wheezes or rhonchi however Cardio regular rhythm Rate: tachycardic and other Other Details: Slightly tachycardic rate with regular rhythm Radial and carotid pulses are equal and symmetric GI normal to inspection, nondistended, normoactive bowel sounds, non-tender, non-distended and no masses GI Narrative: Abdomen is soft nontender and nondistended No voluntary guarding rigidity or pulsatile mass No fluid wave noted Auscultation: normoactive bowel sounds Palpation: soft Extremity Extremity Narrative: Patient has chronic changes to bilateral feet without secondary findings to suggest acute infection Neuro Neuro Narrative: GCS of 13 Patient is lethargic but will awaken to voice. There is no obvious focal neurologic deficit noted Sensorium / Orientation: orientation impaired Psych Psych Narrative: Patient has a flat affect Skin Skin Narrative: Chronic changes to his bilateral feet that are stable in nature otherwise no secondary findings to suggest trauma or infection General Skin Exam: Negative for jaundice or pallor MDM MDM MDM Narrative Medical decision making narrative: Patient arrived to the ER technically afebrile but family gave Tylenol roughly 2 hours prior to arrival. Otherwise he is hypotensive and tachycardic and tachypnea. He is also requiring 2 to 3 L nasal cannula oxygen when he does not normally need supplemental O2. With these vitals and family reporting change in mental status there is concern for systemic infection/sepsis. Secondary to this patient was ordered 3 L of fluid for resuscitation to see if this helps heart rate and blood pressure. With his previous history of DVT/PE even though he is on Xarelto there is concern he could have developed a pulmonary embolus so a CTA was obtained. With the hypoxia there is also concern for potential pneumonia. CTA revealed no acute finding. Patient's urine sample did show changes consistent with infection. He was started on broad-spectrum antibiotics upon arrival as there was concern for systemic infection but no obvious source at that time. The urine was sent for culture and with IV hydration patient's blood pressure did improve but after hydration was completed pressure began to downtrend once again. Secondary to this the decision was made to start peripheral Levophed. I initially plan to place a central line and transfer the Levophed to the central line but he was only requiring a very small dose at 2.5 mcg. Therefore I felt with only a need for a small amount of vasopressors that there is hope he will not need them after further treatment. I did discuss this with the hospitalist who agrees that at this time we can hold off on the central line and see how he responds with the low-dose peripheral vasopressors and transition to a central line later today if necessary. Therefore this time the patient is classifying septic changes with tachycardia fever and hypotension as well as elevated lactic acid. He has been resuscitated with 3 L normal saline started on broad-spectrum antibiotics of vancomycin and Zosyn have blood cultures and urine cultures obtained and had a CTA that ruled out PE pneumonia or dissection. Source of infection is the urine sample and I feel this is the cause of his altered mental status/encephalopathy. As his change in mental status is just increased confusion and lethargy and there is no obvious focal neurologic deficit I have low concern that there is need for head CT. Therefore at this time as patient is having improvement of vital signs and his infection is being treated he will be admitted to the ICU for continued care History & Record Review Discussion w/independent historian: Family Lab Data Attestation: I reviewed the patient's lab results. Labs: Laboratory Results - last 24 hr 08/19/24 08/20/24 23:50 00:20 WBC 8.7 RBC 4.08 L Hgb 12.7 L Hct 37.4 L MCV 91.7 MCH 31.1 MCHC 34.0 RDW Std Deviation 48.7 H RDW Coeff of Veronica 14.6 Plt Count 126 L MPV 9.3 Immature Gran % (Auto) 1.000 H Neut % (Auto) 87.2 H Lymph % (Auto) 6.3 L [place] % (Auto) 4.9 Eos % (Auto) 0.1 Baso % (Auto) 0.5 Absolute Neuts (auto) 7.6 Absolute Lymphs (auto) 0.55 L Nucleated RBC % 0 PT 19.2 H INR 1.6 APTT 32.3 Sodium 133 Potassium 5.3 H Chloride 100 Carbon Dioxide 19.8 L Anion Gap 14 BUN 17 Creatinine 1.90 H Estim Creat Clear Calc 45.50 L Est GFR (MDRD) Non-Af 36 L BUN/Creatinine Ratio 9.2 L Glucose 245 H Lactic Acid 3.4 H* Calcium 8.8 Total Bilirubin 0.76 AST 29 ALT 24 Alkaline Phosphatase 78 Total Protein 7.0 Albumin 3.6 Globulin 3.4 Albumin/Globulin Ratio 1.1 Procalcitonin 0.32 H Urine Color Stephanie Urine Clarity Cloudy Urine pH 6.0 Ur Specific [place] 1.010 Urine Protein 100 H Urine Glucose (UA) 1000 H Urine Ketones 5 H Urine Occult Blood 250 H Urine Nitrite Negative Urine Bilirubin Negative Urine Urobilinogen Normal Ur Leukocyte Esterase 500 H Urine RBC > 100 SEEN Urine WBC >100 SEEN Ur Squamous Epith Cells 0-5 SEEN Amorphous Sediment 1+ Urine Bacteria 2+ Urine Mucus RARE Radiography Diagnostic Testing: Clinical Impression(s) from Imaging Studies Chest CTA 08/20/24 00:08 IMPRESSION: Motion artifact significantly limits the evaluation. No large central or hilar saddle pulmonary embolism. Interlobar to subsegmental branches are not well evaluated. The central airways appear patent. Motion artifact and low appearing lung volumes. Bibasilar and dependent atelectasis. No focal consolidation. Three-vessel coronary calcification appears moderate. Reading Location: [facility] Critical Care Time Critical Care Time: Yes Critical care time (excluding procedures): Discussing w/Patient &/or Family/Resident Hall Director, Discussing w/Consultants, Performing Direct Patient Care at Bedside and - (Please note critical care time of 37 minutes) Discharge Plan Dx/Rx/DC Orders Clinical Impression: Septic shock, UTI (urinary tract infection), Acute metabolic encephalopathy, Dementia, Insulin dependent diabetes mellitus Disposition Disposition: Acute Care Hospital [facility] Discharge Date/Time: 08/20/24 06:02
[2024-08-20] MEDS: Norepinephrine Bit/0.9% NaCl 8 MG/250 ML IV.SOLN 9.4 MG CONT INF (04:28)
[2024-08-20 04:32] LABS: Reflex Lactate? Y
--- NOTE | 2024-08-20 04:37 | ED.RN ---
Pt monitor alarmed at nurses station for bradycardia. Heart rate maintained between 45-55. This nurse checked previous heart rates had been anywhere from 70's to 100's. This nurse then called for an EKG immediately. Daughter came to the door and stated are you guys watching this he just tiffany'd down. Informed daughter that this nurse did see/hear the alarm on the monitor and that this nurse was in the process of calling for an EKG and that this nurse would let Dr. Brown know. Informed Dr. Brown of same, he states that it was probably caused by starting the levophed. This nurse to room, informed daughter that RT was on her way to do an EKG, and what Dr. Brown said about starting the levophed, she then states, well he was just started on the levo so I think it is correlating with that. This nurse stated to her, yes, that is what Dr. Brown just said and RT is coming to do an EKG.
--- NOTE | 2024-08-20 04:45 | ED.RN ---
This RN went into the room after being called in by the patient's daughter. The patient's daughter stated you need to stop norepinephrine right now because it made his heart rate drop and caused a pause, and now his blood pressure is way too high. This RN documented the elevated blood pressure, which was the first blood pressure that was elevated and notified the MD. This RN also educated the patient on the importance of the norepinephrine d/t to the patient's blood pressure being critically low. This RN received a verbal order from Dr. Brown to titration the medication down, see MAR documentation. When this RN went back into the room to titrate the patient's medication down, this RN educated the family on what the doctor had ordered. The patient's daughter stated, you need to stop this medication and you need to have the pharmacy check this medication because clearly the dosage is wrong. This is not supposed to be happening. This RN explained the patient's family about the importance of this medication and the MD being aware of the blood pressure. The patient's daughter stated well why did you start him on 5mcg/min when it should be 0.5mcg/min. This RN referred to the protocol and explained to the family that the dosage was correct and this RN explained to the patient's family that the patient needed to be on this medication and that the doctor has ordered the decrease accordingly. The patient's daughter proceeded to read off her phone a list of potential things that could happen since the patient's blood pressure increased so quickly. This RN educated the patient and his family about how we are monitoring the patient's vital signs and are giving him the best care possible. The patient's daughter responded stating, well how often should you be taking his blood pressure since he is on the norepinephrine, because I don't think that every 15 minutes is often enough. This RN explained to the patient's family that 15 minutes should be adequate d/t the medication going into a peripheral IV, however this RN explained that the frequency could be increased if the family insisted. The patient's daughter stated that that won't be necessary. MD aware.
--- NOTE | 2024-08-20 04:47 | EKG12_ITS ---
Test Reason : BRADYCARDIA Blood Pressure : */* mmHG Vent. Rate : 73 BPM Atrial Rate : 44 BPM P-R Int : * ms QRS Dur : 144 ms QT Int : 478 ms P-R-T Axes : * 2 110 degrees QTcB Int : 526 ms Normal sinus rhythm Left bundle branch block Abnormal ECG Confirmed by SHON RAMOS MD [id number]), rewrite editor LIZETH HAMMONDS ([id number]) on 08/22/2024 9:07:07 AM Referred By: INOCENCIA Confirmed By: SHON RAMOS MD
[2024-08-20] MEDS: 0.9% Normal Saline (1000mL) 1,000 ML 200 ML IV ×2 (04:54→10:02)
--- NOTE | 2024-08-20 06:10 | US_ITS ---
PROCEDURE: KIDNEY AND BLADDER 08/20/2024 REASON FOR EXAM: UROSEPSIS, EVAL FOR PYELONEPHRITIS TECHNIQUE: Bilateral renal ultrasound. COMPARISON: None. FINDINGS: Kidneys: Tiny nonobstructing right midpole renal calculus. No left renal calculi. [place]: No hydronephrosis. Cysts or Masses: No cysts or large solid renal masses visualized by ultrasound examination. Other: Indwelling Marx catheter within the urinary bladder. RIGHT Kidney Size: 12.0 x 5.7 x 5.3 cm Volume: 191 mL Parenchymal Thickness: 1.2 cm (>14mm is normal) Cortical Thickness (if discernible): Not applicable (>6mm is normal) LEFT Kidney Size: 11.3 x 6.2 x 6.0 cm Volume: 221 mL Parenchymal Thickness: 1.1 cm (>14mm is normal) Cortical Thickness (if discernible): Not applicable (>6mm is normal) US/Kidney and Bladder IMPRESSION: 1. Mild bilateral renal cortical thinning. 2. Tiny nonobstructing right midpole renal calculus. Reading Location: [id number]
[2024-08-20] MEDS: 0.9% Saline Lock 10 ML Syringe IV (06:57)
[2024-08-20] MEDS: Levothyroxine 50 MCG Tablet PO (06:57)
[2024-08-20] MEDS: Insulin Lispro 100 UNIT/ML INSULN.PEN SC ×4 (08:21→20:11)
[2024-08-20] MEDS: Allopurinol 100 MG Tablet PO (08:22)
[2024-08-20] MEDS: Pramipexole Di-HCl 0.125 MG Tablet PO ×2 (08:23→20:08)
[2024-08-20] MEDS: DULoxetine Hcl 60 MG Capsule PO (08:23)
[2024-08-20] MEDS: Ezetimibe 10 MG Tablet PO (08:23)
[2024-08-20] MEDS: QUEtiapine 100 MG Tablet PO ×2 (08:23→20:08)
[2024-08-20] MEDS: Midodrine HCl 5 MG Tablet PO ×3 (08:24→17:10)
[2024-08-20 08:43] LABS: Bedside Glucose 214 mg/dL (74-106)
--- NOTE | 2024-08-20 08:54 | CON.PCM.CC_ITS ---
HPI Consult Data Date of Consult: 08/20/24 HPI Narrative Reason for Consultation: Sepsis and shock on pressors HPI Narrative: PATITO PORRAS, is a 74yo who presents with acute on chronic alteration in mentation, phsyical weakness/frailty. Per bedside nursing, patient recently was diagnosed with UTI and was prescribed oral Abx, but did not initiate treatment. Cared for by at home, and unclear reason for the nonadherence to medical therapy, but may be related to baseline level of moderate to severe dementia. On presentation, patient very febrile and confirms pain on urination. UA in ED showing UTI. Marx placed and patient was given 3L IVF resuscitation. Due to persistent hypotension, started on pressors and admitted to ICU. 08/20 - patient easily rousable and responding well to questions. Had difficulty lying flat for renal U/S but otherwise doing well. Small blood at tip of penis around Marx. Received Zosyn in ED. UA pH 6.0. Renal U/S showing renal stone in R, but no hydro. [facility] Medical History Kidney disease Gout Dementia Diabetes HTN (hypertension) Home Medications ?Medication ?Instructions ?Recorded ?Last Taken ?Type allopurinol 100 mg tablet 100 mg PO DAILYCM 05/03/13 U nknown History gabapentin 800 mg tablet 800 mg PO TIDCM 05/03/13 Unk nown History sblmgbfz-ihm-nlyup acid 0.4 1 ea PO DAILY 05/03/13 Unk nown History mg-lycopene 300 mcg-lutein 250 mcg tablet (Centrum Silver) atorvastatin 10 mg tablet 10 mg PO QPM 03/18/24 Unknow n History donepezil 10 mg tablet 10 mg PO QHS 03/18/24 Unknow n History dulaglutide 3 mg/0.5 mL 3 mg subcut QWEEK 03/18/24 U nknown History subcutaneous pen injector (Trulicity) duloxetine 60 mg capsule,delayed 60 mg PO DAILY Unknown History release empagliflozin 25 mg tablet 25 mg PO DAILY 03/18/24 Unk nown History (Jardiance) ezetimibe 10 mg tablet 10 mg PO DAILY 03/18/24 Unkn own History glipizide 10 mg tablet, extended 10 mg PO DAILY Unknown History release 24 hr insulin glargine 100 unit/mL (3 75 unit subcut QPM Unknown History mL) subcutaneous pen (Basaglar SaraPen U-100 Insulin) levothyroxine 50 mcg tablet 50 mcg PO DAILY 03/18/24 U nknown History lisinopril 2.5 mg tablet 2.5 mg PO DAILY 03/18/24 Unk nown History pramipexole 0.125 mg tablet 0.125 mg PO BID 03/18/24 U nknown History quetiapine 100 mg tablet 100 mg PO BID 03/18/24 Unkno wn History quetiapine 50 mg tablet 50 mg PO DAILY 03/18/24 Unkn own History rivaroxaban 20 mg tablet (Xarelto) 20 mg PO DAILY 03/04 09/24 Unknown History tizanidine 4 mg tablet 4 mg PO QPM 03/18/24 Unknown History tramadol 50 mg tablet 50 mg PO 4X/DAY PRN PRN pain 03/18/24 Unknown History trazodone 50 mg tablet 100 mg PO BID 03/18/24 Unkno wn History clonidine 0.2 mg/24 hr weekly 1 patch topical QWEEK Unknown History transdermal patch Allergy/AdvReac Type Severity Reaction Status Date / Time ibuprofen AdvReac Abd Verified 08/19/24 23:53 cramps/diarrhea Surgical History History of left shoulder replacement H/O knee surgery Social History Smoking Status: Never smoker ROS Constitutional Constitutional: Reports chills Eyes Eyes: Denies blurry vision, change in vision or loss of vision ENT HEENT: Denies dizziness, dysphagia, epistaxis, headache(s), hoarseness, loss taste/smell, nasal congestion, nasal discharge or sore throat Cardiovascular Cardiovascular: Denies chest pain, claudication, dizziness, dyspnea, edema, irregular heart rhythm or lightheadedness Respiratory/Chest Respiratory/Chest: Denies chest tightness, cough, dyspnea, hemoptysis, non-rest sleep EDS, pain on inspiration, shortness of breath with exertion, snoring, wheezing or witnessed apneas Gastrointestinal Gastrointestinal: Denies abdominal pain, diarrhea, dyspepsia, dysphagia, heartburn, hematochezia, melena, nausea or vomiting Genitourinary Genitourinary: Reports dysuria Musculoskeletal Musculoskeletal: Denies arthralgias, back pain or joint pain Integumentary Integumentary: Denies lesions, rash, skin ulcer or wounds Neurologic Neurologic: Denies abnormal gait, abnormal speech, confusion, focal weakness, loss of vision, seizure-like activity or syncope Psychiatric Psychiatric: Denies anxiety, depression, hallucinations, homicidal ideation, panic attacks or suicidal thoughts Endocrine Endocrinology: Denies fatigue, polydipsia or polyuria Hematologic/Lymphatic Hematologic/Lymphatic: Denies easy bleeding or easy bruising Allergic/Immunologic Allergic/Immunologic: Denies systems reviewed and no addt'l complaints, except as documented, as per HPI, none, GI upset w/certain foods, itchy eyes, lip swelling, seasonal rhinorrhea, rhinitis, throat swelling, tongue swelling, hives, urticaria, eczemia, wheezing, asthma or other Objective Data Objective Data Vital Signs: Vital Signs Last response 3 Temperature 36.7 C 08/20/24 06:00 Temperature Source Core 08/20/24 06:00 Pulse Rate 75 08/20/24 06:28 Respiratory Rate 18 08/20/24 06:00 Respiratory Effort Normal, Non-Labored 08/20/24 06:36 Respiratory Depth Normal 08/20/24 06:36 Respiratory Pattern Normal 08/20/24 06:36 Blood Pressure 100/58 L 08/20/24 06:00 Blood Pressure Mean 72 08/20/24 06:00 Pulse Ox 98 08/20/24 07:43 Oxygen Delivery Method Nasal Cannula 08/20/24 07:43 Oxygen Flow Rate (L/min) 2 08/20/24 07:43 I&O: I&O Last 24 Hours 3 08/19/24 08/19/24 08/20/24 11:59 23:59 11:59 Intake Total 100 / 100 3653.09 / 3653.09 Balance 100 / 100 3653.09 / 3653.09 I&O: Total Stay 3 08/19/24 23:46 thru 08/20/24 07:00 Intake Total 3753.09 Balance 3753.09 Current Meds Ordered / Administered: Current meds ordered / Administered 3 Generic Name Dose Route Start Last Admin Trade Name Freq PRN Reason Stop Dose Admin Acetaminophen 650 mg 08/20/24 06:10 Acetaminophen 325 Mg Tablet PO Q6H PRN PRN Pain 1-10 Or Fever>100.7 Allopurinol 100 mg 08/20/24 08:00 08/20/24 08:22 Allopurinol 100 Mg Tablet PO 100 mg DAILYCM PRAVEEN Administration Atorvastatin Calcium 10 mg 08/20/24 22:00 Atorvastatin Calcium 10 Mg Tablet PO QHS PRAVEEN Donepezil HCl 10 mg 08/20/24 22:00 Donepezil Hcl 10 Mg Tablet PO QHS PRAVEEN Duloxetine HCl 60 mg 08/20/24 10:00 08/20/24 08:23 Duloxetine Hcl 60 Mg Capsule PO 60 mg DAILY PRAVEEN Administration Ezetimibe 10 mg 08/20/24 10:00 08/20/24 08:23 Ezetimibe 10 Mg Tablet PO 10 mg DAILY PRAVEEN Administration Gabapentin 800 mg 08/20/24 08:00 08/20/24 08:24 Gabapentin 800 Mg Tablet PO Not Given TIDCM PRAVEEN Glucagon 1 mg 08/20/24 03:47 Glucagon 1 Mg/Ml Syringe IM X1 PRN Hypoglycemia Protocol Dextrose 250 mls @ 0 mls/hr 08/20/24 03:47 Dextrose 10%-Water IV .Q0M PRN HYPOGLYCEMIA Protocol As Directed Norepinephrine Bitartrate 8 mg in 250 mls @ 9.375 mls/hr 08/20/24 04:00 08/20/24 07:00 CONT INF 2.5 mcg/min .[id number] PRAVEEN 4.7 mls/hr Titration Protocol 5 MCG/MIN Sodium Chloride 1,000 mls @ 200 mls/hr 08/20/24 04:35 08/20/24 04:54 IV 200 mls/hr .Q5H PRAVEEN Administration Sodium Chloride 100 mls @ 15 mls/hr 08/20/24 06:24 IV .Q6H40M PRN Saline Flush Sodium Chloride 100 mls @ 15 mls/hr 08/20/24 06:24 IV .Q6H40M PRN Additional IVPB Infusion Cefepime HCl 1 gm/ Sodium 50 mls @ 100 mls/hr 08/20/24 08:00 Chloride IV Q12 PRAVEEN Insulin Glargine 35 unit 08/20/24 22:00 Insulin Glargine-Yfgn 100 Unit/Ml Pen SC QHS PRAVEEN Protocol Insulin Human Lispro 0 unit 08/20/24 07:00 08/20/24 08:21 Insulin Lispro 100 Unit/Ml Insuln.Pen SC 2 u ACHS [facility] Administration Protocol Levothyroxine Sodium 50 mcg 08/20/24 06:10 08/20/24 06:57 Levothyroxine 50 Mcg Tablet PO 50 mcg DAILY@0600 [facility] Administration Midodrine 5 mg 08/20/24 08:00 08/20/24 08:24 Midodrine Hcl 5 Mg Tablet PO 08/22/24 23:59 5 mg TIDCM [facility] Administration Ondansetron HCl 4 mg 08/20/24 06:10 Ondansetron 4 Mg/2 Ml Vial IV Q8H PRN PRN NAUSEA/VOMITING Pramipexole Dihydrochloride 0.125 mg 08/20/24 10:00 08/20/24 08:23 Pramipexole Di-Hcl 0.125 Mg Tablet PO 0.125 mg BID [facility] Administration Quetiapine Fumarate 100 mg 08/20/24 10:00 08/20/24 08:23 Quetiapine 100 Mg Tablet PO 100 mg BID [facility] Administration Protocol Rivaroxaban 20 mg 08/20/24 17:00 Rivaroxaban 20 Mg Tablet PO DAILY@1700 [facility] Sodium Chloride 10 - 40 ml 08/20/24 06:24 08/20/24 06:57 0.9% Saline Lock 10 Ml Syringe IV 10 ml UD PRN Administration SALINE FLUSH Tizanidine HCl 4 mg 08/20/24 06:39 Tizanidine Hcl 2 Mg Tablet PO QHS PRN PRN muscle spasms Tramadol HCl 50 mg 08/20/24 06:10 Tramadol 50 Mg Tablet PO 4X/DAY PRN PRN Pain Score 4-10 Trazodone HCl 100 mg 08/20/24 22:00 Trazodone 100 Mg Tablet PO QHS [facility] Physical Exam Const alert and no apparent distress General Appearance: cooperative HEENT normocephalic, head/scalp atraumatic and moist oral mucous membranes Mouth: oral and palatal mucosa normal Eyes PERRL, EOMs intact bilaterally, conjunctivae normal and no scleral icterus Neck no JVD Chest inspection of chest normal Resp normal respiratory effort and no use of accessory muscles Effort and Inspection: able to speak in complete sentences Auscultation: clear to auscultation bilaterally Cardio regular rate and regular rhythm GI normal to inspection, nondistended, normoactive bowel sounds no CVA tenderness Extremity no clubbing, cyanosis or edema Skin no rashes or lesions noted Neuro CN's II-XII intact bilaterally, moves all extremities and no focal motor deficits Psych cooperative and affect normal Lab / Micro Data Attestation: I reviewed the patient's lab results. 08/19/24 23:50 08/19/24 23:50 Labs: Laboratory Results - last 24 hr 08/19/24 23:50: WBC 8.7, RBC 4.08 L, Hgb 12.7 L, Hct 37.4 L, MCV 91.7, MCH 31.1, MCHC 34.0, RDW Std Deviation 48.7 H, RDW Coeff of Veronica 14.6, Plt Count 126 L, MPV 9.3, Immature Gran % (Auto) 1.000 H, Neut % (Auto) 87.2 H, Lymph % (Auto) 6.3 L, [place] % (Auto) 4.9, Eos % (Auto) 0.1, Baso % (Auto) 0.5, Absolute Neuts (auto) 7.6, Absolute Lymphs (auto) 0.55 L, Nucleated RBC % 0, PT 19.2 H, INR 1.6, APTT 32.3, Sodium 133, Potassium 5.3 H, Chloride 100, Carbon Dioxide 19.8 L, Anion Gap 14, BUN 17, Creatinine 1.90 H, Estim Creat Clear Calc 45.50 L, Est GFR (MDRD) Non-Af 36 L, BUN/Creatinine Ratio 9.2 L, Glucose 245 H, Lactic Acid 3.4 H*, Calcium 8.8, Total Bilirubin 0.76, AST 29, ALT 24, Alkaline Phosphatase 78, Total Protein 7.0, Albumin 3.6, Globulin 3.4, Albumin/Globulin Ratio 1.1, P rocalcitonin 0.32 H 08/20/24 00:20: Urine Color Stephanie, Urine Clarity Cloudy, Urine pH 6.0, Ur Specific [place] 1.010, Urine Protein 100 H, Urine Glucose (UA) 1000 H, Urine Ketones 5 H, Urine Occult Blood 250 H, Urine Nitrite Negative, Urine Bilirubin Negative, Urine Urobilinogen Normal, Ur Leukocyte Esterase 500 H, Urine RBC > 100 SEEN, Urine WBC >100 SEEN, Ur Squamous Epith Cells 0-5 SEEN, Amorphous Sediment 1+, Urine Bacteria 2+, Urine Mucus RARE 08/20/24 08:17: POC Glucose 214 H Micro: Microbiology 08/20/24 00:27 Mucosa - Nose SARS-CoV-2, Influenza & RSV (PCR) - Final Imaging Radiology Impression Chest CTA 08/20/24 00:08 IMPRESSION: Motion artifact significantly limits the evaluation. No large central or hilar saddle pulmonary embolism. Interlobar to subsegmental branches are not well evaluated. The central airways appear patent. Motion artifact and low appearing lung volumes. Bibasilar and dependent atelectasis. No focal consolidation. Three-vessel coronary calcification appears moderate. Reading Location: [id number] Assessment and Plan . Assessment and plan: ICU Problem List: Septic shock on pressors Urinary tract infection Renal calculus hyperkalemia Plan: change Zosyn to cefepime 1gm q12h can likely DC vanc continue Marx for deocmpression of bladder add midodrine 5mg PO q8h x3d titrate norepinephrine for MAP 65torr+ repeat LA and BMP for hyperK and sepsis trend Kaushik Sykes MD PCCM [facility] Critical Care Time: 60 min The entirety of this encounter was done via Telemedicine
[2024-08-20] MEDS: Cefepime HCl 1 GM in 0.9% Normal Saline (50mL MB+) 50 ML IV ×2 (09:06→20:39)
--- NOTE | 2024-08-20 09:36 | CASEMGMT ---
Social Work Pt has a history of dementia, it is documented he is confused. SW attempted to call pt's to complete assessment, however call went to voicemail. SW left a message to call SW back. PT/OT are pending at this time. SW did create in [facility] a list of senior care facilities in network w/pt's insurance, in pt's preferred geographic area and complete w/quality and resource use data should it be needed. SW will speak w/ should she call back, and will ask RN to call SW should come in to visit. MADELAINE Soriano
[2024-08-20 09:54] LABS: Lactic Acid 1.4 mmol/L (0.0-2.0)
[2024-08-20 09:55] LABS: Anion Gap 9 (5-15); BUN 20 mg/dL (4-19); BUN/Creat Ratio 10.5 RATIO (10-20); Calcium,Total 7.7 mg/dL (7.6-11.0); Carbon Dioxide 21.3 mmol/L (21.0-32.0); Chloride 105 mmol/L (98-108); Creatinine, Serum 1.89 mg/dL (0.70-1.20); EST Glomerular Filtration Rate 37 (>60); Estimated Creatinine Clearance 46.74 ml/min (50-250); Glucose 212 mg/dL (70-99); Potassium 4.6 mmol/L (3.3-5.1); Sodium Level 135 mmol/L (133-145)
[2024-08-20] MEDS: Gabapentin 800 MG Tablet PO ×2 (11:38→17:12)
[2024-08-20 12:01] LABS: Bedside Glucose 181 mg/dL (74-106)
--- NOTE | 2024-08-20 13:04 | CASEMGMT ---
Social Work SW did speak w/pt in the attempt to complete the assessment, as has not returned call. Pt was able to answer some questions regarding home situation. PCP: Pt cannot recall Specialists: Pt informed SW sees pain management Pharmacy: [facility] Insurance: [place] Medicare/[facility] Community Plan LW/POA: Not on file, states states his helps him w/all decisions LNOK: Pt is , two children, Hayde and Rickey Living arrangements/prior level of function: Pt states lives with his and son, he thinks it's a one story home. Son helps to fix things around the house. Pt states his does the cooking, cleaning, driving, meds, helps pt get to restroom, dress, bathe. He states she helps him w/everything. DME/O2: Pt states is not on home O2. He uses a walker, has a shower chair and grab bars HHC/SNF: Pt thinks he has had home health, states has not been anywhere for rehab. Plan: TBD. SUKHI/MARCO A to speak w/ to verify the above, and review discharge options. SW did create a SNF list in [facility] to give to when she comes in to see pt. MADELAINE Soriano
--- NOTE | 2024-08-20 15:12 | PN.HOSP_ITS ---
Reason for Visit Reason for Visit: Diagnoses Sepsis, unspecified organism (08/20/24) Metabolic encephalopathy (08/20/24) Urinary tract infection, site not specified (08/20/24) Severe sepsis with septic shock (08/20/24) Objective Data Objective Data Vital Signs: Vital Signs Temp Pulse Resp BP Pulse Ox O2 Del Method O2 Flow Rate 98.1 F 75 18 100/58 L 98 Nasal Cannula 2 08/20/24 06:00 08/20/24 06:28 08/20/24 06:00 08/20/24 06:00 08/20/24 06:00 08/20/24 06:36 08/20/24 06:36 Oxygen Flow Rate (L/min) 2 Oxygen Delivery Method Nasal Cannula Weight: 305 lb 8.971 oz Body Mass Index (BMI) 45.1 Intake & Output: Intake and Output for Last 24 Hours 08/18/24 08/19/24 08/20/24 23:59 23:59 23:59 Intake Total 100 / 100 3653.09 / 3653.09 Balance 100 / 100 3653.09 / 3653.09 Lab / Micro Data 08/19/24 23:50 08/20/24 08:57 Labs: Laboratory Results - last 24 hr 08/19/24 23:50: WBC 8.7, RBC 4.08 L, Hgb 12.7 L, Hct 37.4 L, MCV 91.7, MCH 31.1, MCHC 34.0, RDW Std Deviation 48.7 H, RDW Coeff of Veronica 14.6, Plt Count 126 L, MPV 9.3, Immature Gran % (Auto) 1.000 H, Neut % (Auto) 87.2 H, Lymph % (Auto) 6.3 L, [place] % (Auto) 4.9, Eos % (Auto) 0.1, Baso % (Auto) 0.5, Absolute Neuts (auto) 7.6, Absolute Lymphs (auto) 0.55 L, Nucleated RBC % 0, PT 19.2 H, INR 1.6, APTT 32.3, Sodium 133, Potassium 5.3 H, Chloride 100, Carbon Dioxide 19.8 L, Anion Gap 14, BUN 17, Creatinine 1.90 H, Estim Creat Clear Calc 45.50 L, Est GFR (MDRD) Non-Af 36 L, BUN/Creatinine Ratio 9.2 L, Glucose 245 H, Lactic Acid 3.4 H*, Calcium 8.8, Total Bilirubin 0.76, AST 29, ALT 24, Alkaline Phosphatase 78, Total Protein 7.0, Albumin 3.6, Globulin 3.4, Albumin/Globulin Ratio 1.1, P rocalcitonin 0.32 H 08/20/24 00:20: Urine Color Stephanie, Urine Clarity Cloudy, Urine pH 6.0, Ur Specific [place] 1.010, Urine Protein 100 H, Urine Glucose (UA) 1000 H, Urine Ketones 5 H, Urine Occult Blood 250 H, Urine Nitrite Negative, Urine Bilirubin Negative, Urine Urobilinogen Normal, Ur Leukocyte Esterase 500 H, Urine RBC > 100 SEEN, Urine WBC >100 SEEN, Ur Squamous Epith Cells 0-5 SEEN, Amorphous Sediment 1+, Urine Bacteria 2+, Urine Mucus RARE Micro: Microbiology 08/20/24 00:27 Mucosa - Nose SARS-CoV-2, Influenza & RSV (PCR) - Final Radiography Diagnostic Testing: Radiology Impression Chest CTA 08/20/24 00:08 IMPRESSION: Motion artifact significantly limits the evaluation. No large central or hilar saddle pulmonary embolism. Interlobar to subsegmental branches are not well evaluated. The central airways appear patent. Motion artifact and low appearing lung volumes. Bibasilar and dependent atelectasis. No focal consolidation. Three-vessel coronary calcification appears moderate. Reading Location: [facility] Physical Exam Narrative Seen and examined. Patient is still sleepy and intermittently fossils during encounter He denies burning micturition but has chronic urgency, increased frequency and probably incontinence. Cannot give detailed history. There is blood per urethra of around the catheter and blood mixed urine in the Urobag Physical exam General: Awake, drowsy/lethargic, orientation cannot be ascertained. Inattention. HEENT: Atraumatic, PERRLA, EOMI, Normocephalic Oral: Oral mucosa dry. Deep oropharyngeal structures could not be visualized. No Gingival or Mucosal Lesions/ Ulcerations Neck: Supple, No JVD, Negative Carotid Bruits Chest wall/Lungs: Air entry diminished in bilateral lung bases. No crepitation/rhonchi Cardiovascular: Sinus rhythm, Normal S1, Normal S2, No M/G/R Abdomen: Bowel Sounds Present, Soft, Non Tender, Non-Distended : Catheter with bright and clotted blood around the catheter. No renal angle tenderness. No suprapubic tenderness. Extremities: Mild edema, Capillary Refill Less than 3 Seconds Skin: Venous hypertension changes in lower legs. Musculoskeletal: No Tenderness to Palpation of Joints or Extremities Neurological: Cranial nerves II-XII grossly intact, DTR 2+/4. No acute focal neurological deficit. Psych/Mental Status: Normal Affect, Appropriate. Assessment & Plan Assessment/Plan (1) Septic shock: (2) UTI (urinary tract infection): (3) Acute metabolic encephalopathy: PLAN: Plan Patient is a 74-year-old male who presented to [facility] ED on 08/20/2024 with worsening confusion and weakness for few weeks. Had UTI for past 2 weeks. As per family he was less responsive and having tremors at about 5 PM on the day of admission. EMS vitals show sinus tachycardia 106/min, tachypnea 36/min BP 108/60. History of recurrent UTI suspected BPH and advanced dementia. 1. Septic shock suspected secondary to UTI ? Admit under inpatient status to ICU. Building Guard Deputy Sheriff consulted. The patient meets sepsis criteria with SBP less than 90, lactate 3.4, acute metabolic encephalopathy most likely due to UTI as the patient has history of recurrent UTI and has BPH. In ED, patient received 3 L of IV fluids in ED and MAP remained around 65, and CVC catheter inserted and started on Levophed. Renal/bladder ultrasound ordered. No prior urine culture data available, will treat with IV Zosyn for now. Follow-up urine culture and blood cultures. 08/20: Patient seen by cigar head holer. Antibiotic Zosyn changed to cefepime 1 g Q12 hourly. Discontinue vancomycin. Remove Marx catheter. Marx has traumatic bleeding and fresh clots. Discussed with nursing station. Titrate metoprolol. Patient has leg swelling and had A lot of fluid therefore discontinue IV fluid\ 2. Acute metabolic encephalopathy in setting of dementia with behavioral disturbances ? Per family, is alert and oriented x 3 at baseline but repeats himself regularly with conversation and has poor short-term memory /19: Probably due to UTI, infectious and metabolic encephalopathy. Acute encephalopathy is better 3. Acute on chronic debility ? PT/OT/case management consulted. Patient requires walker at home and requires assistance with most activities of daily living from and other family members. Has required SNF and home health care in the past. Appreciate therapy recommendations. 4. Suspected BPH with obstructive symptoms ? No formal BPH diagnosis per but symptoms of frequent straining with urination and recurrent UTIs seem consistent with BPH. Renal/bladder ultrasound ordered as above. Marx catheter placed in the ED, will need to determine if void trial can be completed prior to discharge. 5. Type 2 diabetes mellitus with neuropathy ? Home regimen of insulin glargine 75 units at night, glipizide, Trulicity and Jardiance. Blood glucose 245 in the ED. Will treat with Lantus 35 units at night and sliding scale insulin with meals for now, adjust as needed. Notably his Jardiance will increase risk for UTIs going forward so may be reasonable to discontinue this medication on discharge. Continue home gabapentin. Chronic medical conditions: ? Class III obesity: BMI 44 on admit. Complicates hospital course, care and prognosis. ? CKD stage IIIb: Creatinine 1.90 on admit, stable at baseline. Monitor daily BMP and urine output. ? Hypertension: Holding home lisinopril and clonidine. ? Hyperlipidemia: Continue home atorvastatin and Zetia. ? Restless leg syndrome: Continue home pramipexole. ? Hypothyroidism: Continue home Synthroid. ? Chronic pain syndrome: Continue home tramadol as needed and duloxetine. ? 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 ? History of gout: Continue home allopurinol. DVT prophylaxis: Not indicated, on Xarelto CODE STATUS: DNR CCA, DNI Expected disposition: TBD Charges/Coding Visit Charges Inpatient E&M: 64248 [facility] L3
[2024-08-20 16:55] LABS: Bedside Glucose 165 mg/dL (74-106)
[2024-08-20] MEDS: Rivaroxaban 20 MG Tablet PO (17:11)
[2024-08-20] MEDS: Menthol/Lanolin/Calamine/Znox 113 GM Tube 1 APPLIC TOPICAL (20:07)
[2024-08-20] MEDS: traZODone 100 MG Tablet PO (20:07)
[2024-08-20] MEDS: Atorvastatin Calcium 10 MG Tablet PO (20:08)
[2024-08-20] MEDS: Donepezil HCl 10 MG Tablet PO (20:09)
[2024-08-20] MEDS: Insulin Glargine-YFGN 100 UNIT/ML Pen 35 UNIT SC (20:12)
[2024-08-20 20:58] LABS: Bedside Glucose 203 mg/dL (74-106)
[2024-08-20] MEDS: traMADol 50 MG Tablet PO (22:01)
[2024-08-21] VITALS (13 sets, daily range): BP systolic 111–135; BP diastolic 44–65; PULSE 62–83; RESP 11–18; TEMP 36.6–37.2; O2SAT 91–98; BMI 45.8
[2024-08-21 03:33] LABS: Hematocrit 31.6 % (40-54); Hemoglobin 10.7 g/dL (13.0-16.5); Mean Corp Hgb Conc 33.9 g/dL (32-36); Mean Corpuscular Volume 91.6 fL (80-94); Mean Platelet Vol. 8.7 fl (6.2-12.0); Platelet Count 103 K/mm3 (150-450); RBC Distribution Width SD 50.4 fl (35.1-43.9); Red Blood Count 3.45 M/mm3 (4.6-6.2); White Blood Count 5.9 K/mm3 (4.4-11.0)
[2024-08-21 03:56] LABS: Anion Gap 10 (5-15); BUN 19 mg/dL (4-19); BUN/Creat Ratio 10.9 RATIO (10-20); Carbon Dioxide 20.3 mmol/L (21.0-32.0); Chloride 107 mmol/L (98-108); Creatinine, Serum 1.76 mg/dL (0.70-1.20); EST Glomerular Filtration Rate 40 (>60); Glucose 144 mg/dL (70-99); Potassium 4.2 mmol/L (3.3-5.1); Sodium Level 137 mmol/L (133-145)
[2024-08-21] MEDS: Levothyroxine 50 MCG Tablet PO (05:03)
[2024-08-21] MEDS: 0.9% Saline Lock 10 ML Syringe IV ×3 (05:03→21:57)
--- NOTE | 2024-08-21 07:14 | PN.HOSP_ITS ---
Reason for Visit Reason for Visit: Diagnoses Sepsis, unspecified organism (08/20/24) Metabolic encephalopathy (08/20/24) Urinary tract infection, site not specified (08/20/24) Severe sepsis with septic shock (08/20/24) Objective Data Objective Data Vital Signs: Vital Signs Temp Pulse Resp BP Pulse Ox O2 Del Method O2 Flow Rate 98.8 F 67 11 L 118/64 94 Room Air 2 08/21/24 05:00 08/21/24 06:00 08/21/24 06:00 08/21/24 06:00 08/21/24 06:00 08/21/24 06:00 08/20/24 12:33 Oxygen Flow Rate (L/min) 2 Oxygen Delivery Method Room Air Weight: 309 lb 8.464 oz Body Mass Index (BMI) 45.8 Intake & Output: Intake and Output for Last 24 Hours 08/19/24 08/20/24 08/21/24 23:59 23:59 23:59 Intake Total 100 / 100 5692.51 / 5692.51 Output Total 2175 / 2175 800 / 800 Balance 100 / 100 3517.51 / 3517.51 -800 / -800 Lab / Micro Data 08/21/24 03:23 08/21/24 03:22 Labs: Laboratory Results - last 24 hr 08/20/24 08:17: POC Glucose 214 H 08/20/24 08:57: Sodium 135, Potassium 4.6, Chloride 105, Carbon Dioxide 21.3, Anion Gap 9, BUN 20 H, Creatinine 1.89 H, Estim Creat Clear Calc 46.74 L, Est GFR (MDRD) Non-Af 37 L, BUN/Creatinine Ratio 10.5, Glucose 212 H, Lactic Acid 1.4, Calcium 7.7 08/20/24 11:37: POC Glucose 181 H 08/20/24 16:35: POC Glucose 165 H 08/20/24 20:11: POC Glucose 203 H 08/21/24 03:22: Sodium 137, Potassium 4.2, Chloride 107, Carbon Dioxide 20.3 L, Anion Gap 10, BUN 19, Creatinine 1.76 H, Estim Creat Clear Calc 50.20, Est GFR (MDRD) Non-Af 40 L, BUN/Creatinine Ratio 10.9, Glucose 144 H, Calcium 8.0 08/21/24 03:23: WBC 5.9, RBC 3.45 L, Hgb 10.7 L, Hct 31.6 L, MCV 91.6, MCH 31.0, MCHC 33.9, RDW Std Deviation 50.4 H, RDW Coeff of Veronica 15.0 H, Plt Count 103 L, MPV 8.7 Micro: Microbiology 08/20/24 00:27 Mucosa - Nose SARS-CoV-2, Influenza & RSV (PCR) - Final Radiography Diagnostic Testing: Radiology Impression Renal Ultrasound 08/20/24 06:10 IMPRESSION: 1. Mild bilateral renal cortical thinning. 2. Tiny nonobstructing right midpole renal calculus. Reading Location: [facility] Physical Exam Narrative Seen and examined. He denies burning micturition but has chronic urgency, increased frequency and probably incontinence. Cannot give detail history. There is blood per urethra of around the catheter and blood mixed urine in the Urobag Physical exam General: Alert awake oriented x 3. Patient comprehends well. BMI 45.7 kg per square HEENT: Atraumatic, PERRLA, EOMI, Normocephalic Oral: Oral mucosa moist deep oropharyngeal structures could not be visualized. Neck: Supple, No JVD, Negative Carotid Bruits Chest wall/Lungs: Air entry diminished in bilateral lung bases. No crepitation/rhonchi Cardiovascular: Sinus rhythm, Normal S1, Normal S2, No M/G/R Abdomen: Bowel Sounds Present, Soft, Non Tender, Non-Distended : Catheter with dark yellow urine. No active bleeding per urethra. No renal angle tenderness. No suprapubic tenderness. Extremities: Mild edema, Capillary Refill Less than 3 Seconds Skin: Venous hypertension changes in lower legs. Musculoskeletal: No Tenderness to Palpation of Joints or Extremities Neurological: Cranial nerves II-XII grossly intact, DTR 2+/4. No acute focal neurological deficit. Psych/Mental Status: Normal Affect, Appropriate. Assessment & Plan Assessment/Plan (1) Septic shock: (2) UTI (urinary tract infection): (3) Acute metabolic encephalopathy: PLAN: Plan Patient is a 74-year-old male who presented to [facility] ED on 08/20/2024 with worsening confusion and weakness for few weeks. Had UTI for past 2 weeks. As per family he was less responsive and having tremors at about 5 PM on the day of admission. EMS vitals show sinus tachycardia 106/min, tachypnea 36/min BP 108/60. History of recurrent UTI suspected BPH and advanced dementia. 1. Septic shock suspected secondary to UTI ? Admit under inpatient status to ICU. Senior Nurse Manager consulted. The patient meets sepsis criteria with SBP less than 90, lactate 3.4, acute metabolic encephalopathy most likely due to UTI as the patient has history of recurrent UTI and has BPH. In ED, patient received 3 L of IV fluids in ED and MAP remained around 65, and CVC catheter inserted and started on Levophed. Renal/bladder ultrasound ordered. No prior urine culture data available, will treat with IV Zosyn for now. Follow-up urine culture and blood cultures. 08/20: Patient seen by hydro excavation operator. Antibiotic Zosyn changed to cefepime 1 g Q12 hourly. Discontinue vancomycin. Remove Marx catheter. Marx has traumatic bleeding and fresh clots. Discussed with nursing station. Titrate metoprolol. Patient has leg swelling and had A lot of fluid therefore discontinue IV fluid\ 08/21: Patient is off the pressor. Awake and alert. Blood and urine culture pending. Triple PCR for SARS-CoV-2, flu and RSV are negative seen by hydro excavation operator. Renal bladder ultrasound shows mild bilateral renal cortical thinning. Tiny nonobstructing right midpole renal calculus. Patient hemodynamically stable for transfer to PCU 2. Acute metabolic encephalopathy in setting of dementia with behavioral disturbances ? Per family, is alert and oriented x 3 at baseline but repeats himself regularly with conversation and has poor short-term memory 08/21: Acute metabolic encephalopathy resolved. : Probably due to UTI, infectious and metabolic encephalopathy. Acute encephalopathy is better 3. Acute on chronic debility ? PT/OT/case management consulted. Patient requires walker at home and requires assistance with most activities of daily living from and other family members. Has required SNF and home health care in the past. Appreciate therapy recommendations. 4. Suspected BPH with obstructive symptoms ? No formal BPH diagnosis per but symptoms of frequent straining with urination and recurrent UTIs seem consistent with BPH. Renal/bladder ultrasound ordered as above. Marx catheter placed in the ED, will need to determine if void trial can be completed prior to discharge. 5. Type 2 diabetes mellitus with neuropathy ? Home regimen of insulin glargine 75 units at night, glipizide, Trulicity and Jardiance. Blood glucose 245 in the ED. Will treat with Lantus 35 units at night and sliding scale insulin with meals for now, adjust as needed. Notably his Jardiance will increase risk for UTIs going forward so may be reasonable to discontinue this medication on discharge. Continue home gabapentin. Chronic medical conditions: ? Class III obesity: BMI 44 on admit. Complicates hospital course, care and prognosis. ? CKD stage IIIb: Creatinine 1.90 on admit, stable at baseline. Monitor daily BMP and urine output. ? Hypertension: Holding home lisinopril and clonidine. ? Hyperlipidemia: Continue home atorvastatin and Zetia. ? Restless leg syndrome: Continue home pramipexole. ? Hypothyroidism: Continue home Synthroid. ? Chronic pain syndrome: Continue home tramadol as needed and duloxetine. ? 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 ? History of gout: Continue home allopurinol. DVT prophylaxis: Not indicated, on Xarelto CODE STATUS: DNR CCA, DNI Expected disposition: TBD Charges/Coding Visit Charges Inpatient E&M: 13405 Subs Hosp L3
[2024-08-21] MEDS: Gabapentin 800 MG Tablet PO ×2 (08:34→16:28)
[2024-08-21] MEDS: Ondansetron 4 MG/2 ML Vial IV (08:34)
[2024-08-21] MEDS: Allopurinol 100 MG Tablet PO (08:35)
[2024-08-21] MEDS: QUEtiapine 100 MG Tablet PO (09:43)
[2024-08-21] MEDS: Pramipexole Di-HCl 0.125 MG Tablet PO ×2 (09:43→22:04)
[2024-08-21] MEDS: DULoxetine Hcl 60 MG Capsule PO (09:43)
[2024-08-21] MEDS: Menthol/Lanolin/Calamine/Znox 113 GM Tube 1 APPLIC TOPICAL ×2 (09:43→22:23)
[2024-08-21] MEDS: Ezetimibe 10 MG Tablet PO (09:43)
[2024-08-21] MEDS: Cefepime HCl 1 GM in 0.9% Normal Saline (50mL MB+) 50 ML IV ×2 (10:05→22:05)
--- NOTE | 2024-08-21 10:30 | PN.CC_ITS ---
Objective Data Objective Data Vital Signs: Vital Signs Last response 3 Temperature 36.8 C 08/21/24 08:00 Temperature Source Temporal 08/21/24 08:00 Pulse Rate 83 08/21/24 08:00 Pulse Strength Weak (1+) 08/20/24 20:44 Respiratory Rate 16 08/21/24 08:00 Respiratory Effort Normal, Non-Labored 08/21/24 04:11 Respiratory Depth Normal 08/21/24 04:11 Respiratory Pattern Normal 08/21/24 04:11 Blood Pressure 130/65 H 08/21/24 08:00 Blood Pressure Mean 86 08/21/24 08:00 Blood Pressure Source Monitor 08/21/24 08:00 Blood Pressure Position Semi-Fowlers 08/21/24 08:00 Blood Pressure Location Left Arm 08/21/24 08:00 Pulse Ox 95 08/21/24 08:00 Oxygen Delivery Method Room Air 08/21/24 08:00 Oxygen Flow Rate (L/min) 2 08/21/24 09:18 I&O: I&O Last 24 Hours 3 08/20/24 08/20/24 08/21/24 11:59 23:59 11:59 Intake Total 4720.75 / 5692.51 971.76 / 5692.51 Output Total 2175 / 2175 800 / 800 Balance 4720.75 / 3517.51 -1203.24 / 3517.51 -800 / -800 I&O: Total Stay 3 08/19/24 23:46 thru 08/21/24 05:08 Intake Total 5792.51 Output Total 2975 Balance 2817.51 Current Meds Ordered / Administered: Current meds ordered / Administered 3 Generic Name Dose Route Start Last Admin Trade Name Freq PRN Reason Stop Dose Admin Acetaminophen 650 mg 08/20/24 06:10 Acetaminophen 325 Mg Tablet PO Q6H PRN PRN Pain 1-10 Or Fever>100.7 Allopurinol 100 mg 08/20/24 08:00 08/21/24 08:35 Allopurinol 100 Mg Tablet PO 100 mg DAILYCM PRAVEEN Administration Atorvastatin Calcium 10 mg 08/20/24 22:00 08/20/24 20:08 Atorvastatin Calcium 10 Mg Tablet PO 10 mg QHS PRAVEEN Administration Calamine/Phenol 1 applic 08/20/24 22:00 08/21/24 09:43 Menthol/Lanolin/Calamine/Znox 113 Gm Tube TOPICAL 1 applic BID PRAVEEN Administration Protocol Donepezil HCl 10 mg 08/20/24 22:00 08/20/24 20:09 Donepezil Hcl 10 Mg Tablet PO 10 mg QHS PRAVEEN Administration Duloxetine HCl 60 mg 08/20/24 10:00 08/21/24 09:43 Duloxetine Hcl 60 Mg Capsule PO 60 mg DAILY PRAVEEN Administration Ezetimibe 10 mg 08/20/24 10:00 08/21/24 09:43 Ezetimibe 10 Mg Tablet PO 10 mg DAILY PRAVEEN Administration Gabapentin 800 mg 08/20/24 08:00 08/21/24 08:34 Gabapentin 800 Mg Tablet PO 800 mg TIDCM PRAVEEN Administration Glucagon 1 mg 08/20/24 03:47 Glucagon 1 Mg/Ml Syringe IM X1 PRN Hypoglycemia Protocol Dextrose 250 mls @ 0 mls/hr 08/20/24 03:47 Dextrose 10%-Water IV .Q0M PRN HYPOGLYCEMIA Protocol As Directed Norepinephrine Bitartrate 8 mg in 250 mls @ 9.375 mls/hr 08/20/24 04:00 08/21/24 05:08 CONT INF Not Given .[id number] PRAVEEN Protocol 5 MCG/MIN Sodium Chloride 100 mls @ 15 mls/hr 08/20/24 06:24 IV .Q6H40M PRN Saline Flush Sodium Chloride 100 mls @ 15 mls/hr 08/20/24 06:24 IV .Q6H40M PRN Additional IVPB Infusion Cefepime HCl 1 gm/ Sodium 50 mls @ 100 mls/hr 08/20/24 08:00 08/21/24 10:05 Chloride IV 100 mls/hr Q12 PRAVEEN Administration Insulin Glargine 35 unit 08/20/24 22:00 08/20/24 20:12 Insulin Glargine-Yfgn 100 Unit/Ml Pen SC 35 unit QHS PRAVEEN Administration Protocol Insulin Human Lispro 0 unit 08/20/24 07:00 08/21/24 08:03 Insulin Lispro 100 Unit/Ml Insuln.Pen SC Not Given ACHS PRAVEEN Protocol Levothyroxine Sodium 50 mcg 08/20/24 06:10 08/21/24 05:03 Levothyroxine 50 Mcg Tablet PO 50 mcg DAILY@0600 PRAVEEN Administration Ondansetron HCl 4 mg 08/20/24 06:10 08/21/24 08:34 Ondansetron 4 Mg/2 Ml Vial IV 4 mg Q8H PRN PRN Administration NAUSEA/VOMITING Pramipexole Dihydrochloride 0.125 mg 08/20/24 10:00 08/21/24 09:43 Pramipexole Di-Hcl 0.125 Mg Tablet PO 0.125 mg BID PRAVEEN Administration Quetiapine Fumarate 100 mg 08/20/24 10:00 08/21/24 09:43 Quetiapine 100 Mg Tablet PO 100 mg BID PRAVEEN Administration Protocol Rivaroxaban 20 mg 08/20/24 17:00 08/20/24 17:11 Rivaroxaban 20 Mg Tablet PO 20 mg DAILY@1700 [facility] Administration Sodium Chloride 10 - 40 ml 08/20/24 06:24 08/21/24 08:34 0.9% Saline Lock 10 Ml Syringe IV 20 ml UD PRN Administration SALINE FLUSH Tizanidine HCl 4 mg 08/20/24 06:39 Tizanidine Hcl 2 Mg Tablet PO QHS PRN PRN muscle spasms Tramadol HCl 50 mg 08/20/24 06:10 08/20/24 22:01 Tramadol 50 Mg Tablet PO 50 mg 4X/DAY PRN PRN Administration Pain Score 4-10 Trazodone HCl 100 mg 08/20/24 22:00 08/20/24 20:07 Trazodone 100 Mg Tablet PO 100 mg QHS PRAVEEN Administration Lab / Micro Data Attestation: I reviewed the patient's lab results. 08/21/24 03:23 08/21/24 03:22 Labs: Laboratory Results - last 24 hr 08/20/24 11:37: POC Glucose 181 H 08/20/24 16:35: POC Glucose 165 H 08/20/24 20:11: POC Glucose 203 H 08/21/24 03:22: Sodium 137, Potassium 4.2, Chloride 107, Carbon Dioxide 20.3 L, Anion Gap 10, BUN 19, Creatinine 1.76 H, Estim Creat Clear Calc 50.20, Est GFR (MDRD) Non-Af 40 L, BUN/Creatinine Ratio 10.9, Glucose 144 H, Calcium 8.0 08/21/24 03:23: WBC 5.9, RBC 3.45 L, Hgb 10.7 L, Hct 31.6 L, MCV 91.6, MCH 31.0, MCHC 33.9, RDW Std Deviation 50.4 H, RDW Coeff of Veronica 15.0 H, Plt Count 103 L, MPV 8.7 Imaging Radiology Impression Renal Ultrasound 08/20/24 06:10 IMPRESSION: 1. Mild bilateral renal cortical thinning. 2. Tiny nonobstructing right midpole renal calculus. Reading Location: [id number] Assessment and Plan . Assessment and plan: ICU Problem List: Septic shock off pressor Urinary tract infection Renal calculus hyperkalemia Plan: cefepime 1gm q12h DC midodrine 5mg PO q8h can leave ICU today if MAP still >65 off midodrine Kaushik Sykes MD [facility] Access TeleCare Critical Care Time: 55 min The entirety of this encounter was done via Telemedicine Physical Exam Const alert and no apparent distress General Appearance: cooperative HEENT normocephalic, head/scalp atraumatic and moist oral mucous membranes Eyes PERRL, EOMs intact bilaterally, conjunctivae normal and no scleral icterus Neck no JVD Chest inspection of chest normal Resp normal respiratory effort and no use of accessory muscles Effort and Inspection: able to speak in complete sentences Auscultation: clear to auscultation bilaterally Cardio regular rate and regular rhythm GI normal to inspection, nondistended, normoactive bowel sounds no CVA tenderness Extremity no clubbing, cyanosis or edema Skin no rashes or lesions noted Neuro CN's II-XII intact bilaterally, moves all extremities and no focal motor deficits Psych cooperative and affect normal Subjective Subjective HPI Narrative: PATITO PORRAS, is a 74yo who presents with acute on chronic alteration in mentation, phsyical weakness/frailty. Per bedside nursing, patient recently was diagnosed with UTI and was prescribed oral Abx, but did not initiate treatment. Cared for by at home, and unclear reason for the nonadherence to medical therapy, but may be related to baseline level of moderate to severe dementia. On presentation, patient very febrile and confirms pain on urination. UA in ED showing UTI. Marx placed and patient was given 3L IVF resuscitation. Due to persistent hypotension, started on pressors and admitted to ICU. 08/20 - patient easily rousable and responding well to questions. Had difficulty lying flat for renal U/S but otherwise doing well. Small blood at tip of penis around Marx. Received Zosyn in ED. UA pH 6.0. Renal U/S showing renal stone in R, but no hydro. 08/21 - off pressors, feels well, no complaints 10 or more systems reviewed and are negative except as per HPI
[2024-08-21] MEDS: Insulin Lispro 100 UNIT/ML INSULN.PEN SC ×3 (11:19→22:01)
[2024-08-21 11:38] LABS: Bedside Glucose 162 mg/dL (74-106)
[2024-08-21] MEDS: traMADol 50 MG Tablet PO ×2 (16:28→22:23)
[2024-08-21] MEDS: Rivaroxaban 20 MG Tablet PO (16:28)
[2024-08-21 16:51] LABS: Bedside Glucose 203 mg/dL (74-106)
[2024-08-21] MEDS: traZODone 50 MG Tablet PO ×2 (17:10→22:00)
[2024-08-21] MEDS: Donepezil HCl 10 MG Tablet PO (22:00)
[2024-08-21] MEDS: Insulin Glargine-YFGN 100 UNIT/ML Pen 35 UNIT SC (22:01)
[2024-08-21] MEDS: Atorvastatin Calcium 10 MG Tablet PO (22:02)
[2024-08-21] MEDS: QUEtiapine 25 MG Tablet 50 MG PO (22:23)
[2024-08-21 22:34] LABS: Bedside Glucose 254 mg/dL (74-106)
[2024-08-22] VITALS (7 sets, daily range): BP systolic 125–153; BP diastolic 53–64; PULSE 60–68; RESP 14–16; TEMP 36.5–36.7; O2SAT 96–97; BMI 46.8
[2024-08-22] MEDS: Insulin Lispro 100 UNIT/ML INSULN.PEN SC ×4 (06:07→21:22)
[2024-08-22] MEDS: Levothyroxine 50 MCG Tablet PO (06:09)
[2024-08-22 06:58] LABS: Bedside Glucose 160 mg/dL (74-106)
--- NOTE | 2024-08-22 08:05 | PN.HOSP_ITS ---
Reason for Visit Reason for Visit: Diagnoses Sepsis, unspecified organism (08/20/24) Metabolic encephalopathy (08/20/24) Urinary tract infection, site not specified (08/20/24) Severe sepsis with septic shock (08/20/24) Objective Data Objective Data Vital Signs: Vital Signs Temp Pulse Resp BP Pulse Ox O2 Del Method O2 Flow Rate 97.7 F L 68 16 153/64 H 96 Room Air 2 08/22/24 08:04 08/22/24 08:04 08/22/24 08:04 08/22/24 08:04 08/22/24 08:04 08/22/24 08:04 08/21/24 09:18 Oxygen Flow Rate (L/min) 2 Oxygen Delivery Method Room Air Weight: 316 lb 5.813 oz Body Mass Index (BMI) 46.8 Intake & Output: Intake and Output for Last 24 Hours 08/20/24 08/21/24 08/22/24 23:59 23:59 23:59 Intake Total 5692.51 / 5692.51 900 / 900 Output Total 2175 / 2175 3400 / 3400 450 / 450 Balance 3517.51 / 3517.51 -2500 / -2500 -450 / -450 Lab / Micro Data 08/21/24 03:23 08/21/24 03:22 Labs: Laboratory Results - last 24 hr 08/21/24 11:18: POC Glucose 162 H 08/21/24 16:26: POC Glucose 203 H 08/21/24 21:59: POC Glucose 254 H 08/22/24 06:07: POC Glucose 160 H Micro: Microbiology 08/20/24 00:27 Mucosa - Nose SARS-CoV-2, Influenza & RSV (PCR) - Final Physical Exam Narrative Seen and examined. He denies burning micturition but has chronic urgency, increased frequency and incontinence. Patient has dementia therefore history not reliable. He denies burning micturition but has chronic urgency, increased frequency and probably incontinence. Cannot give detail history. There is blood per urethra of around the catheter and blood mixed urine in the Urobag Physical exam General: Alert awake oriented x 3. Patient comprehends well. BMI 45.7 kg per square HEENT: Atraumatic, PERRLA, EOMI, Normocephalic Oral: Oral mucosa moist deep oropharyngeal structures could not be visualized. Neck: Supple, No JVD, Negative Carotid Bruits Chest wall/Lungs: Air entry diminished in bilateral lung bases. No crepitation/rhonchi Cardiovascular: Sinus rhythm, Normal S1, Normal S2, No M/G/R Abdomen: Bowel Sounds Present, Soft, Non Tender, Non-Distended : Catheter with clear urine no active bleeding per urethra. No renal angle tenderness. No suprapubic tenderness. Extremities: Mild edema, Capillary Refill Less than 3 Seconds Skin: Venous hypertension changes in lower legs. Musculoskeletal: No Tenderness to Palpation of Joints or Extremities Neurological: Cranial nerves II-XII grossly intact, DTR 2+/4. No acute focal neurological deficit. Psych/Mental Status: Normal Affect, Appropriate. Assessment & Plan Assessment/Plan (1) Septic shock: (2) UTI (urinary tract infection): (3) Acute metabolic encephalopathy: PLAN: Plan Patient is a 74-year-old male who presented to [facility] ED on 08/20/2024 with worsening confusion and weakness for few weeks. Had UTI for past 2 weeks. As per family he was less responsive and having tremors at about 5 PM on the day of admission. EMS vitals show sinus tachycardia 106/min, tachypnea 36/min BP 108/60. History of recurrent UTI suspected BPH and advanced dementia. 1. Septic shock suspected secondary to UTI ? Admit under inpatient status to ICU. Manufacturing Business Analyst consulted. The patient meets sepsis criteria with SBP less than 90, lactate 3.4, acute metabolic encephalopathy most likely due to UTI as the patient has history of recurrent UTI and has BPH. In ED, patient received 3 L of IV fluids in ED and MAP remained around 65, and CVC catheter inserted and started on Levophed. Renal/bladder ultrasound ordered. No prior urine culture data available, will treat with IV Zosyn for now. Follow-up urine culture and blood cultures. 08/20: Patient seen by writer producer. Antibiotic Zosyn changed to cefepime 1 g Q12 hourly. Discontinue vancomycin. Remove Marx catheter. Marx has traumatic bleeding and fresh clots. Discussed with nursing station. Titrate metoprolol. Patient has leg swelling and had A lot of fluid therefore discontinue IV fluid\ 08/21: Patient is off the pressor. Awake and alert. Blood and urine culture pending. Triple PCR for SARS-CoV-2, flu and RSV are negative seen by writer producer. Renal bladder ultrasound shows mild bilateral renal cortical thinning. Tiny nonobstructing right midpole renal calculus. Patient hemodynamically stable for transfer to PCU 08/22: BP 153/64. Suspected urinary source for septic shock. History of BPH. Urine culture pending. Continue cefepime. 2. Acute encephalopathy in setting of dementia with behavioral disturbances, multiple etiology infectious and metabolic ? Per family, is alert and oriented x 3 at baseline but repeats himself regularly with conversation and has poor short-term memory 08/21: Acute metabolic and encephalopathy resolved. 3. Acute on chronic debility ? PT/OT/case management consulted. Patient requires walker at home and requires assistance with most activities of daily living from and other family members. Has required SNF and home health care in the past. Appreciate therapy recommendations. 4. Suspected BPH with obstructive symptoms ? No formal BPH diagnosis per but symptoms of frequent straining with urination and recurrent UTIs seem consistent with BPH. Renal/bladder ultrasound ordered as above. Marx catheter placed in the ED, will need to determine if void trial can be completed prior to discharge. 5. Type 2 diabetes mellitus with neuropathy ? Home regimen of insulin glargine 75 units at night, glipizide, Trulicity and Jardiance. Blood glucose 245 in the ED. Will treat with Lantus 35 units at night and sliding scale insulin with meals for now, adjust as needed. Notably his Jardiance will increase risk for UTIs going forward so may be reasonable to discontinue this medication on discharge. Continue home gabapentin. Chronic medical conditions: ? Class III obesity: BMI 44 on admit. Complicates hospital course, care and prognosis. ? CKD stage IIIb: Creatinine 1.90 on admit, stable at baseline. Monitor daily BMP and urine output. ? Hypertension: Holding home lisinopril and clonidine. ? Hyperlipidemia: Continue home atorvastatin and Zetia. ? Restless leg syndrome: Continue home pramipexole. ? Hypothyroidism: Continue home Synthroid. ? Chronic pain syndrome: Continue home tramadol as needed and duloxetine. ? 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 ? History of gout: Continue home allopurinol. DVT prophylaxis: Not indicated, on Xarelto CODE STATUS: DNR CCA, DNI Expected disposition: TBD Charges/Coding Visit Charges Inpatient E&M: 78868 Subs Hosp L2
[2024-08-22] MEDS: QUEtiapine 25 MG Tablet 50 MG PO ×2 (08:07→21:22)
[2024-08-22] MEDS: DULoxetine Hcl 60 MG Capsule PO (08:07)
[2024-08-22] MEDS: Pramipexole Di-HCl 0.125 MG Tablet PO ×2 (08:07→21:23)
[2024-08-22] MEDS: Allopurinol 100 MG Tablet PO (08:07)
[2024-08-22] MEDS: Ezetimibe 10 MG Tablet PO (08:07)
[2024-08-22] MEDS: Menthol/Lanolin/Calamine/Znox 113 GM Tube 1 APPLIC TOPICAL ×2 (08:07→21:23)
[2024-08-22] MEDS: Gabapentin 800 MG Tablet PO ×3 (08:13→17:08)
[2024-08-22] MEDS: Cefepime HCl 1 GM in 0.9% Normal Saline (50mL MB+) 50 ML IV ×2 (08:14→21:25)
[2024-08-22] MEDS: traMADol 50 MG Tablet PO ×4 (08:14→21:23)
--- NOTE | 2024-08-22 11:48 | PCM.CONS.GEN ---
Assessment & Plan Assessment/Plan (1) Septic shock: PLAN: Suspect urinary source given recent uti, h/o BPH, and greater than 100 wbc seen on UA. Ucx pending. Overall feeling better, fever resolved, wbc normal. Cont cefepime while cxs pending. Will follow, thank you (2) Dementia: (3) Insulin dependent diabetes mellitus: HPI Consult Data Date of Consult: 08/22/24 HPI Narrative Reason for Consultation: sepsis HPI Narrative: PATITO PORRAS, is a 74 M with h/o dementia, recurrent uti, BPH, DM, presented 08/20 to ED with sudden onset confusion at home. He does not remember much of what happened. Had been treated for uti about 2 weeks ago. Denies cough, SOB, headache, abd pain, dysuria, n/v/d. Admitted to icu with septic shock. Now out of icu, feeling better. Full ROS performed and neg except as noted above. [facility] Medical History Kidney disease Gout Dementia Diabetes HTN (hypertension) Home Medications ?Medication ?Instructions ?Recorded ?Last Taken ?Type allopurinol 100 mg tablet 100 mg PO DAILYCM 05/03/13 Unknown History gabapentin 800 mg tablet 800 mg PO TIDCM 05/03/13 Unknown History [id number]-qzy-jqfpx acid 0.4 1 ea PO DAILY 05/03/13 Unknown History mg-lycopene 300 mcg-lutein 250 mcg tablet (Centrum Silver) atorvastatin 10 mg tablet 10 mg PO QPM 03/18/24 Unknown History donepezil 10 mg tablet 10 mg PO QHS 03/18/24 Unknown History dulaglutide 3 mg/0.5 mL 3 mg subcut QWEEK 03/18/24 Unknown History subcutaneous pen injector (Trulicity) duloxetine 60 mg capsule,delayed 60 mg PO DAILY 03/18/24 Unknown History release empagliflozin 25 mg tablet 25 mg PO DAILY 03/18/24 Unknown History (Jardiance) ezetimibe 10 mg tablet 10 mg PO DAILY 03/18/24 Unknown History glipizide 10 mg tablet, extended 10 mg PO DAILY 03/18/24 Unknown History release 24 hr insulin glargine 100 unit/mL (3 75 unit subcut QPM 03/18/24 Unknown History mL) subcutaneous pen (Basaglar KwikPen U-100 Insulin) levothyroxine 50 mcg tablet 50 mcg PO DAILY 03/18/24 Unknown History lisinopril 2.5 mg tablet 2.5 mg PO DAILY 03/18/24 Unknown History pramipexole 0.125 mg tablet 0.125 mg PO BID 03/18/24 Unknown History quetiapine 100 mg tablet 100 mg PO BID 03/18/24 Unknown History quetiapine 50 mg tablet 50 mg PO DAILY 03/18/24 Unknown History rivaroxaban 20 mg tablet (Xarelto) 20 mg PO DAILY 03/18/24 Unknown History tizanidine 4 mg tablet 4 mg PO QPM 03/18/24 Unknown History tramadol 50 mg tablet 50 mg PO 4X/DAY PRN PRN pain 03/18/24 Unknown History trazodone 50 mg tablet 100 mg PO BID 03/18/24 Unknown History clonidine 0.2 mg/24 hr weekly 1 patch topical QWEEK 08/19/24 Unknown History transdermal patch Allergy/AdvReac Type Severity Reaction Status Date / Time ibuprofen AdvReac Abd Verified 08/19/24 23:53 cramps/diarrhea Surgical History History of left shoulder replacement H/O knee surgery Social History Smoking Status: Never smoker Physical Exam Const alert and no apparent distress General Appearance: cooperative HEENT normocephalic and head/scalp atraumatic Eyes PERRL and EOMs intact bilaterally Neck supple and No nodes Resp normal air movement and clear to auscultation bilaterally Cardio regular rate and regular rhythm GI soft to palpation, non-tender and non-distended Extremity General Extremity: edema Skin no rashes or lesions noted Neuro CN's II-XII intact bilaterally Lab / Micro Data Attestation: I reviewed the patient's lab results. 08/21/24 03:23 08/21/24 03:22 Labs: Laboratory Results - last 24 hr 08/21/24 16:26: POC Glucose 203 H 08/21/24 21:59: POC Glucose 254 H 08/22/24 06:07: POC Glucose 160 H Micro: Microbiology 08/20/24 00:27 Blood Culture (Wb) - Right Forearm Blood Culture - Preliminary No growth in 48 hours.
[2024-08-22 12:16] LABS: Bedside Glucose 178 mg/dL (74-106)
--- NOTE | 2024-08-22 13:54 | CHAPLAIN ---
Type of Pastoral Visit _x__ Initial Visit ___ Follow-up Visit ___ On-call Visit ___ General Patient Visit ___ Spiritual Assessment ___ Family Conference ___ Bereavement ___ Rapid Response ___ Code Blue ___ Other (describe below) Pastoral Care Referral From _x__ Patient _x__ Family ___ Nurse ___ Physician ___ [employer] Fitter ___ Manager Philosophy ___ Other (describe below) Sacrament/Intervention _x__ Active listening ___ Anointing ___ Jain ___ Bereavement ___ Communion ___ Ximena exploration ___ ___ Life review _x__ Prayer ___ Reconciliation ___ Sacrament of Sick _x__ Supportive presence ___ Wedding ___ Other (describe below) Pastoral Comments patient states that he is okay and says that he is much better than yesterday; pt answers questions but also looks to his with some of the harder ones; pt is pleasant and appears to be comfortable but acknowledges that pt has some dementia and that makes it to hard to face the future; both acknowledge that ximena helps very much; prayer is welcomed
--- NOTE | 2024-08-22 14:43 | CASEMGMT ---
RN CM in to discuss discharge planning, at bedside. states she would like [facility] at discharge. updated CM that patient will need transport home, RN CM updated that there may be a bill for transport and would update SW regarding transport request. had no further questions or concerns. RN MARCO A updated discharge material requirements planning manager and SW. CM will continue to follow this patient and plan for a safe discharge.
--- NOTE | 2024-08-22 15:30 | CASEMGMT ---
Discharge Planning A list of?HH providers including quality and resource use data and consistent with the patient's preferred geographic region, medical needs, and insurance network was created in [facility] Guide.? This list was provided to the RN MARCO A. Karolina Nur, Discharge Planning Asst.
--- NOTE | 2024-08-22 15:31 | PCM.CONS.R ---
Assessment & Plan Assessment/Plan (1) MISTY (acute kidney injury): (2) CKD (chronic kidney disease), stage III: PLAN: Plan This is a 74-year-old male with past medical history significant for hypertension, diabetes mellitus type 2, BPH, dementia who was admitted hospital for sepsis from UTI after presenting with confusion. Nephrology consulted in view of elevated creatinine. Patient has known history of CKD (per patient's CKD secondary to diabetes) and had been following with nephrology in [place], [place]. Reviewing her recent serum creatinine trends: March 18, 2024 creatinine 1.87 mg/dL. Creatinine was 1.9 on admission and today creatinine 1.76. Potassium and bicarb acceptable. Patient has good urine output, so far 1.3 L today. Volume status appears near euvolemic. He is on room air. This is possibly baseline CKD. UA 800 protein, will check urine protein creatinine ratio. Renal ultrasound no hydro, mild bilateral renal cortical thinning. Blood pressures were low in the ER but have improved. Lisinopril is on hold. No acute indication for HEALTHCARE REPRESENTATIVE. Further orders forthcoming as hospitalization evolves, thank you for allowing us to participate in the care of Mr. Porras. HPI Consult Data Date of Consult: 08/22/24 HPI Narrative HPI Narrative: PATITO PORRAS, is a 74 M with past medical history significant for diabetes mellitus type 2, BPH, dementia, recurrent UTI who was brought to the emergency room on August 20 for evaluation of worsening confusion with tremors and weakness. Blood pressure slightly low in ER. Patient was admitted for sepsis suspected secondary to UTI. Nephrology consulted in view of elevated creatinine. Per patient's who was at bedside, she states patient has been following with nephrology in [facility]. They have not established with nephrology once moved to [facility] as patient is essentially homebound. 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 Patient does not take NSAIDs. No recent nausea or vomiting, no diarrhea [facility] Medical History Kidney disease Gout Dementia Diabetes HTN (hypertension) Home Medications ?Medication ?Instructions ?Recorded ?Last Taken ?Type allopurinol 100 mg tablet 100 mg PO DAILYCM 05/03/13 Unknown History gabapentin 800 mg tablet 800 mg PO TIDCM 05/03/13 Unknown History uqmciqaj-dvc-qwluw acid 0.4 1 ea PO DAILY 05/03/13 Unknown History mg-lycopene 300 mcg-lutein 250 mcg tablet (Centrum Silver) atorvastatin 10 mg tablet 10 mg PO QPM 03/18/24 Unknown History donepezil 10 mg tablet 10 mg PO QHS 03/18/24 Unknown History dulaglutide 3 mg/0.5 mL 3 mg subcut QWEEK 03/18/24 Unknown History subcutaneous pen injector (Trulicity) duloxetine 60 mg capsule,delayed 60 mg PO DAILY 03/18/24 Unknown History release empagliflozin 25 mg tablet 25 mg PO DAILY 03/18/24 Unknown History (Jardiance) ezetimibe 10 mg tablet 10 mg PO DAILY 03/18/24 Unknown History glipizide 10 mg tablet, extended 10 mg PO DAILY 03/18/24 Unknown History release 24 hr insulin glargine 100 unit/mL (3 75 unit subcut QPM 03/18/24 Unknown History mL) subcutaneous pen (Basaglar SaraPen U-100 Insulin) levothyroxine 50 mcg tablet 50 mcg PO DAILY 03/18/24 Unknown History lisinopril 2.5 mg tablet 2.5 mg PO DAILY 03/18/24 Unknown History pramipexole 0.125 mg tablet 0.125 mg PO BID 03/18/24 Unknown History quetiapine 100 mg tablet 100 mg PO BID 03/18/24 Unknown History quetiapine 50 mg tablet 50 mg PO DAILY 03/18/24 Unknown History rivaroxaban 20 mg tablet (Xarelto) 20 mg PO DAILY 03/18/24 Unknown History tizanidine 4 mg tablet 4 mg PO QPM 03/18/24 Unknown History tramadol 50 mg tablet 50 mg PO 4X/DAY PRN PRN pain 03/18/24 Unknown History trazodone 50 mg tablet 100 mg PO BID 03/18/24 Unknown History clonidine 0.2 mg/24 hr weekly 1 patch topical QWEEK 08/19/24 Unknown History transdermal patch Allergy/AdvReac Type Severity Reaction Status Date / Time ibuprofen AdvReac Abd Verified 08/19/24 23:53 cramps/diarrhea Surgical History History of left shoulder replacement H/O knee surgery Social History Smoking Status: Never smoker ROS ROS Narrative as in HPI Physical Exam Narrative Alert to name, no apparent distress S1, S2, RRR Lungs sound clear anteriorly and posteriorly. No wheezes, rhonchi or rales Abdomen soft, rounded Trace edema bilateral lower legs Lab / Micro Data 08/21/24 03:23 08/21/24 03:22 Labs: Laboratory Results - last 24 hr 08/20/24 00:20: Urine Color Stephanie, Urine Clarity Cloudy, Urine pH 6.0, Ur Specific [place] 1.010, Urine Protein 100 H, Urine Glucose (UA) 1000 H, Urine Ketones 5 H, Urine Occult Blood 250 H, Urine Nitrite Negative, Urine Bilirubin Negative, Urine Urobilinogen Normal, Ur Leukocyte Esterase 500 H, Urine RBC > 100 SEEN, Urine WBC >100 SEEN, Ur Squamous Epith Cells 0-5 SEEN, Amorphous Sediment 1+, Urine Bacteria 2+, Urine Mucus RARE 08/21/24 16:26: POC Glucose 203 H 08/21/24 21:59: POC Glucose 254 H 08/22/24 06:07: POC Glucose 160 H 08/22/24 11:56: POC Glucose 178 H Micro: Microbiology 08/20/24 00:20 Urine Catheter - Marx Urine Culture - Preliminary Yeast Like Organism 08/20/24 00:27 Blood Culture (Wb) - Right Forearm Blood Culture - Preliminary No growth in 48 hours.
--- NOTE | 2024-08-22 15:37 | CASEMGMT ---
CAHRLOTTE CM in to deliver HHC list. states she [facility]. had no further questions or concerns. RN MARCO A made referral to [facility], awaiting acceptance. CM will continue to follow this patient and plan for a safe discharge.
[2024-08-22] MEDS: Rivaroxaban 20 MG Tablet PO (17:08)
[2024-08-22] MEDS: traZODone 50 MG Tablet PO ×2 (17:08→21:23)
[2024-08-22 17:41] LABS: Bedside Glucose 194 mg/dL (74-106)
[2024-08-22] MEDS: Insulin Glargine-YFGN 100 UNIT/ML Pen 35 UNIT SC (21:22)
[2024-08-22] MEDS: Atorvastatin Calcium 10 MG Tablet PO (21:23)
[2024-08-22] MEDS: Donepezil HCl 10 MG Tablet PO (21:23)
[2024-08-22 21:49] LABS: Bedside Glucose 206 mg/dL (74-106)
[2024-08-23 01:45] LABS: Protein, Urine (Random) 44.6 mg/dL (0.0-12.0); Protein:Creat Ratio 718 mg/g CRE (0-200)
[2024-08-23 03:15] VITALS: BP 133/61; PULSE 62; RESP 13; TEMP 36.8; O2SAT 94
[2024-08-23 06:00] VITALS: BMI 46.0
[2024-08-23] MEDS: Levothyroxine 50 MCG Tablet PO (06:02)
[2024-08-23 06:12] LABS: Absolute Lymphocyte Count 1.69 X10^3/uL (0.83-4.51); Absolute Neutrophil Count 3.3 X10^3/uL (2.0-7.7); Basophil# 0.06 X10^3/uL; Eosinophils% 5.1 % (0-5); Hematocrit 35.5 % (40-54); Hemoglobin 11.7 g/dL (13.0-16.5); Lymphocyte # 1.69 X10^3/ul (0.83-4.51); Lymphocyte % 28.5 % (19-41); Mean Corpuscular Hgb 30.9 pg (27.0-32.0); Mean Corpuscular Volume 93.7 fL (80-94); Mean Platelet Vol. 8.8 fl (6.2-12.0); Monocyte# 0.48 X10^3/uL; Monocyte% 8.1 % (0-10); NRBC Flagged by Analyzer 0 % (0-5); Neutrophil # 3.34 X10^3/uL (2.7-7.7); Neutrophil % 56.3 % (47-70); Platelet Count 103 K/mm3 (150-450); RBC Distribution Width CV 14.8 % (11.6-14.6); RBC Distribution Width SD 50.6 fl (35.1-43.9); Red Blood Count 3.79 M/mm3 (4.6-6.2); White Blood Count 5.9 K/mm3 (4.4-11.0)
[2024-08-23 06:40] LABS: Bedside Glucose 148 mg/dL (74-106)
[2024-08-23 06:46] LABS: Anion Gap 10 (5-15); BUN 13 mg/dL (4-19); Calcium,Total 8.6 mg/dL (7.6-11.0); Carbon Dioxide 21.6 mmol/L (21.0-32.0); Chloride 105 mmol/L (98-108); Creatinine, Serum 1.46 mg/dL (0.70-1.20); EST Glomerular Filtration Rate 50 (>60); Glucose 159 mg/dL (70-99); Sodium Level 136 mmol/L (133-145)
[2024-08-23 08:12] VITALS: O2SAT 96
[2024-08-23 08:47] VITALS: BP 155/61; PULSE 66; RESP 16; TEMP 36.6; O2SAT 99
--- NOTE | 2024-08-23 08:47 | DCINST_ITS ---
Discharge Instructions Diet Discharge Diet: Low fat / Low cholesterol, 1800 Calorie Control Diet and 8 Cup Fluid Restriction DC O2, CPAP, BIPAP needs Home O2 Discharge instructions: No Dressing / Incision Discharge Activity: Return to Normal Activity Weight Bearing Status: Weight bearing as tolerated Dressing / Incision Call your doctor if you observe: Fever of 101 or Higher, Coldness, Increased Pain, Numbness or Tingling, Change in Color, Inability to urinate, Inability to have a bowel movement, Shortness of breath, Dizziness, Fainting spells, Swelling in the ankles, Chest pain, Prolonged hiccupping, Increased palpitations (irregular heartbeat) and Calf discomfort Follow Up Care When: IN 2 WEEKS Test Results: Test results from this visit will be discussed in further detail at your follow- up appointment, if applicable. Discharge Plan Admission Admit Date/Time: 08/20/24 03:15 Primary Reason for Your Visit: Septic shock due to UTI Attending Provider: Mao Muse Primary Care Provider: ABHISHEK ST Consulting Providers: Saroj Gutierrez; Tello Borrego; Kerline Miranda Instructions Additional Instructions / Restrictions: Tizanidine and trazodone are his home medications. The dose and the frequency was wrongly written in the home medication that has been corrected. The order corrected with patient's . Discharge Orders/Prescriptions Prescriptions: New tizanidine 2 mg Tablet 4 mg PO QPM PRN (Reason: muscle spasms) Qty: 0 0RF trazodone 50 mg Tablet 50 mg PO QHS Qty: 0 0RF Rx Instructions: Home medication. trazodone 50 mg Tablet 50 mg PO DAILY@1700 Qty: 0 0RF Rx Instructions: Home medication. cefdinir 300 mg capsule 300 mg PO BID 4 Days Qty: 8 0RF Continued allopurinol 100 MG tablet 100 mg PO DAILYCM gabapentin 800 MG tablet 800 mg PO TIDCM Centrum Silver 1 EACH tablet 1 ea PO DAILY donepezil 10 mg tablet 10 mg PO QHS Trulicity 3 mg/0.5 mL pen injector 3 mg subcut QWEEK duloxetine 60 mg capsule,delayed release(DR/EC) 60 mg PO DAILY lisinopril 2.5 mg tablet 2.5 mg PO DAILY pramipexole 0.125 mg tablet 0.125 mg PO BID quetiapine 50 mg tablet 50 mg PO DAILY tramadol 50 mg tablet 50 mg PO 4X/DAY PRN PRN (Reason: pain) Xarelto 20 mg tablet 20 mg PO DAILY Rx Instructions: must administer with evening meal atorvastatin 10 mg tablet 10 mg PO QPM ezetimibe 10 mg tablet 10 mg PO DAILY glipizide 10 mg tablet extended release 24hr 10 mg PO DAILY Jardiance 25 mg tablet 25 mg PO DAILY levothyroxine 50 mcg tablet 50 mcg PO DAILY clonidine 0.2 mg/24 hr patch weekly 1 patch topical QWEEK Changed insulin glargine [Basaglar KwikPen U-100 Insulin] 100 unit/mL (3 mL) insulin pen 35 unit subcut QPM 30 Days Qty: 0 0RF Discontinued quetiapine 100 mg tablet 100 mg PO BID trazodone 50 mg tablet 100 mg PO BID tizanidine 4 mg tablet 4 mg PO QPM Referrals / Follow Up: Care Physician,No Primary [Non-Staff] - ABHISHEK ST CRNP [Primary Care Provider] - Radhames Brand MD [Med Staff - Active Staff] - Within 2 Weeks (BPH with recurrent UTI. Was admitted with septic shock.) Disposition Disposition (needs filled in before D/C Order can be placed): Home Health Service
[2024-08-23] MEDS: Gabapentin 800 MG Tablet PO ×2 (08:58→12:53)
[2024-08-23] MEDS: DULoxetine Hcl 60 MG Capsule PO (08:59)
[2024-08-23] MEDS: Cefepime HCl 1 GM in 0.9% Normal Saline (50mL MB+) 50 ML IV (08:59)
[2024-08-23] MEDS: Pramipexole Di-HCl 0.125 MG Tablet PO (08:59)
[2024-08-23] MEDS: Ezetimibe 10 MG Tablet PO (08:59)
[2024-08-23] MEDS: Allopurinol 100 MG Tablet PO (08:59)
[2024-08-23] MEDS: QUEtiapine 25 MG Tablet 50 MG PO (08:59)
[2024-08-23] MEDS: traMADol 50 MG Tablet PO (09:04)
[2024-08-23] MEDS: Menthol/Lanolin/Calamine/Znox 113 GM Tube 1 APPLIC TOPICAL (09:05)
--- NOTE | 2024-08-23 10:48 | PCM.PN.ID ---
Physical Exam Narrative Feeling well, no fever, no abd pain, no n/v/d. Const alert and no apparent distress General Appearance: cooperative Resp normal air movement and clear to auscultation bilaterally Cardio regular rate and regular rhythm GI soft to palpation, non-tender and non-distended Skin no rashes or lesions noted ID ID: Route of nutrition/ use of supplements: [] Nutritional Intake: [] IV Site: [] Marx Catheter: [] Assessment & Plan Assessment/Plan (1) Septic shock: PLAN: Suspect urinary source given recent uti, h/o BPH, and greater than 100 wbc seen on UA. Ucx pending. Overall feeling better, fever resolved, wbc normal. Cont cefepime. Ok for home with po cefdinir 300mg bid for 4 more days. Will follow prn, d/w Dr. Muse (2) Dementia: (3) Insulin dependent diabetes mellitus:
--- NOTE | 2024-08-23 11:17 | PCM.DC.SUM ---
Providers Date of Admission: 08/20/24 Date of Discharge: 08/23/24 Primary Care Physician: MELY DUARTE Consultations 08/20/24 06:10 Consult: Statistical Methods Teacher / Pulmonary Medicine Routine Consulting Provider: Intensivists/Pulmonary Med Reason for Consult: suspected urosepsis EMERGENT Consult: No Notified: Yes Date Notified: 08/20/24 Time Notified: 03:20 Method of Notification: Answering Service 08/22/24 08:08 Consult: Nephrology Routine Consulting Provider: Kerline Miranda Reason for Consult: MISTY on CKD, UTI with septic shock EMERGENT Consult: No MD Notified: Yes Date Notified: 08/22/24 Time Notified: 08:09 Method of Notification: Text 08/22/24 08:10 Consult: Infectious Disease Routine Consulting Provider: Tello Borrego Reason for Consult: septic shock, suspected UTI, but culture PENDING EMERGENT Consult: No MD Notified: Yes Date Notified: 08/22/24 Time Notified: 08:10 Method of Notification: Text Reason For Visit: UROSEPSIS Diagnosis Discharge Diagnosis (1) Septic shock: Status: Acute Code(s): A41.9 - Sepsis, unspecified organism; R65.21 - Severe sepsis with septic shock (2) Dementia: Status: Acute Code(s): F03.90 - Unspecified dementia, unspecified severity, without behavioral disturbance, psychotic disturbance, mood disturbance, and anxiety (3) Insulin dependent diabetes mellitus: Status: Acute Plan Patient is a 74-year-old male who presented to [facility] ED on 08/20/2024 with worsening confusion and weakness for few weeks. Had UTI for past 2 weeks. As per family he was less responsive and having tremors at about 5 PM on the day of admission. EMS vitals show sinus tachycardia 106/min, tachypnea 36/min BP 108/60. History of recurrent UTI suspected BPH and advanced dementia. 1. Septic shock suspected secondary to UTI ? Admit under inpatient status to ICU. Statistical Methods Teacher consulted. The patient meets sepsis criteria with SBP less than 90, lactate 3.4, acute metabolic encephalopathy most likely due to UTI as the patient has history of recurrent UTI and has BPH. In ED, patient received 3 L of IV fluids in ED and MAP remained around 65, and CVC catheter inserted and started on Levophed. Renal/bladder ultrasound ordered. No prior urine culture data available, will treat with IV Zosyn for now. Follow-up urine culture and blood cultures. 08/20: Patient seen by box spring upholsterer. Antibiotic Zosyn changed to cefepime 1 g Q12 hourly. Discontinue vancomycin. Remove Marx catheter. Marx has traumatic bleeding and fresh clots. Discussed with nursing station. Titrate metoprolol. Patient has leg swelling and had A lot of fluid therefore discontinue IV fluid\ 08/21: Patient is off the pressor. Awake and alert. Blood and urine culture pending. Triple PCR for SARS-CoV-2, flu and RSV are negative seen by box spring upholsterer. Renal bladder ultrasound shows mild bilateral renal cortical thinning. Tiny nonobstructing right midpole renal calculus. Patient hemodynamically stable for transfer to PCU 08/22: BP 153/64. Suspected urinary source for septic shock. History of BPH. Urine culture pending. Continue cefepime. 08/24: Patient was seen by ID recommended to discharge on cefdinir 300 mg p.o. twice daily for 4 more days. 2. Acute encephalopathy in setting of dementia with behavioral disturbances, multiple etiology infectious and metabolic ? Per family, is alert and oriented x 3 at baseline but repeats himself regularly with conversation and has poor short-term memory 08/21: Acute metabolic and encephalopathy resolved. 08/25: Patient with advanced dementia and does not remember about the symptoms and chronology prior to admission. 3. Acute on chronic debility ? PT/OT/case management consulted. Patient requires walker at home and requires assistance with most activities of daily living from and other family members. Has required SNF and home health care in the past. Appreciate therapy recommendations. 4. Suspected BPH with obstructive symptoms ? No formal BPH diagnosis per but symptoms of frequent straining with urination and recurrent UTIs seem consistent with BPH. Renal/bladder ultrasound ordered as above. Marx catheter placed in the ED, will need to determine if void trial can be completed prior to discharge. 08/23: Renal ultrasound does not show hydronephrosis. Follow-up with urologist Dr. Brand in 2 weeks 5. Type 2 diabetes mellitus with neuropathy ? Home regimen of insulin glargine 75 units at night, glipizide, Trulicity and Jardiance. Blood glucose 245 in the ED. Will treat with Lantus 35 units at night and sliding scale insulin with meals for now, adjust as needed. Notably his Jardiance will increase risk for UTIs going forward so may be reasonable to discontinue this medication on discharge. Continue home gabapentin. Chronic medical conditions: ? Class III obesity: BMI 44 on admit. Complicates hospital course, care and prognosis. ? CKD stage IIIb: Creatinine 1.90 on admit, stable at baseline. Monitor daily BMP and urine output. 08/23: Creatinine improved from 1.90-1.46. ? Hypertension: Holding home lisinopril and clonidine. ? Hyperlipidemia: Continue home atorvastatin and Zetia. ? Restless leg syndrome: Continue home pramipexole. ? Hypothyroidism: Continue home Synthroid. ? Chronic pain syndrome: Continue home tramadol as needed and duloxetine. ? 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 ? History of gout: Continue home allopurinol. DVT prophylaxis: Not indicated, on Xarelto CODE STATUS: DNR CCA, DNI Expected disposition: TBD Discharge medication reconciliation done. Discharge follow-up instructions completed. Discharge process discussed with the patient and all questions were answered to patient's satisfaction. Follow with PCP in 1 to 2 weeks Total time spent, exact 35 minutes on discharge meds reconciliation, examination, coordination of care with nurses and ancillary staff, review of imaging and blood test and discussion with the patient on follow-up instructions. Medications at Discharge Home Medications allopurinol 100 mg tablet 100 mg PO DAILYCM 05/03/13 gabapentin 800 mg tablet 800 mg PO TIDCM 05/03/13 deyffojh-eqa-kgmyl acid 0.4 mg-lycopene 300 mcg-lutein 250 mcg tablet (Centrum Silver) 1 ea PO DAILY 05/03/13 atorvastatin 10 mg tablet 10 mg PO QPM 03/18/24 donepezil 10 mg tablet 10 mg PO QHS 03/18/24 dulaglutide 3 mg/0.5 mL subcutaneous pen injector (Trulicity) 3 mg subcut QWEEK 03/18/24 duloxetine 60 mg capsule,delayed release 60 mg PO DAILY 03/18/24 empagliflozin 25 mg tablet (Jardiance) 25 mg PO DAILY 03/18/24 ezetimibe 10 mg tablet 10 mg PO DAILY 03/18/24 glipizide 10 mg tablet, extended release 24 hr 10 mg PO DAILY 03/18/24 levothyroxine 50 mcg tablet 50 mcg PO DAILY 03/18/24 lisinopril 2.5 mg tablet 2.5 mg PO DAILY 03/18/24 pramipexole 0.125 mg tablet 0.125 mg PO BID 03/18/24 quetiapine 50 mg tablet 50 mg PO DAILY 03/18/24 rivaroxaban 20 mg tablet (Xarelto) 20 mg PO DAILY 03/18/24 tramadol 50 mg tablet 50 mg PO 4X/DAY PRN PRN pain 03/18/24 clonidine 0.2 mg/24 hr weekly transdermal patch 1 patch topical QWEEK 08/19/24 cefdinir 300 mg capsule 300 mg PO BID 4 days #8 caps 08/23/24 insulin glargine 100 unit/mL (3 mL) subcutaneous pen (Basaglar KwikPen U-100 Insulin) 35 unit (0.35 mL) subcut QPM 30 days #0 mL 08/23/24 tizanidine 2 mg tablet 4 mg (2 x 2 mg) PO QPM PRN muscle spasms #0 tabs 08/23/24 trazodone 50 mg tablet 50 mg PO DAILY@1700 #0 tabs 08/23/24 trazodone 50 mg tablet 50 mg PO QHS #0 tabs 08/23/24 Physical Exam Narrative Seen and examined. Patient denies Loritax symptoms but he has advanced dementia. Marx catheter was removed. Physical exam General: Alert awake oriented x 3. Patient comprehends well. BMI 45.7 kg per square HEENT: Atraumatic, PERRLA, EOMI, Normocephalic Oral: Oral mucosa moist. Deep oropharyngeal structures could not be visualized. Neck: Supple, No JVD, Negative Carotid Bruits Chest wall/Lungs: Air entry diminished in bilateral lung bases. No crepitation/rhonchi Cardiovascular: Sinus rhythm, Normal S1, Normal S2, No M/G/R Abdomen: Bowel Sounds Present, Soft, Non Tender, Non-Distended : Catheter with clear urine no active bleeding per urethra. No renal angle tenderness. No suprapubic tenderness. Extremities: Mild edema, Capillary Refill Less than 3 Seconds Skin: Venous hypertension changes in lower legs. Greatest degree of mentation. Musculoskeletal: No Tenderness to Palpation of Joints or Extremities Neurological: Cranial nerves II-XII grossly intact, DTR 2+/4. No acute focal neurological deficit. Psych/Mental Status: Normal Affect, Appropriate. Weight / BMI Weight Weight: 310 lb 13.628 oz Body Mass Index (BMI) 46.0 ABG / Lab / Microbiology Data 08/23/24 05:42 08/23/24 05:42 Laboratory: Laboratory Results - last 24 hr 08/20/24 00:20: Urine Color Stephanie, Urine Clarity Cloudy, Urine pH 6.0, Ur Specific [place] 1.010, Urine Protein 100 H, Urine Glucose (UA) 1000 H, Urine Ketones 5 H, Urine Occult Blood 250 H, Urine Nitrite Negative, Urine Bilirubin Negative, Urine Urobilinogen Normal, Ur Leukocyte Esterase 500 H, Urine RBC > 100 SEEN, Urine WBC >100 SEEN, Ur Squamous Epith Cells 0-5 SEEN, Amorphous Sediment 1+, Urine Bacteria 2+, Urine Mucus RARE 08/22/24 11:56: POC Glucose 178 H 08/22/24 17:09: POC Glucose 194 H 08/22/24 21:21: POC Glucose 206 H 08/22/24 23:45: U Random Total Protein 44.6 H, Urine Creatinine 62.10, Protein/Creatinin Ratio 718 H 08/23/24 05:42: WBC 5.9, RBC 3.79 L, Hgb 11.7 L, Hct 35.5 L, MCV 93.7, MCH 30.9, MCHC 33.0, RDW Std Deviation 50.6 H, RDW Coeff of Veronica 14.8 H, Plt Count 103 L, MPV 8.8, Immature Gran % (Auto) 1.000 H, Neut % (Auto) 56.3, Lymph % (Auto) 28.5, [place] % (Auto) 8.1, Eos % (Auto) 5.1 H, Baso % (Auto) 1.0, Absolute Neuts (auto) 3.3, Absolute Lymphs (auto) 1.69, Nucleated RBC % 0, Sodium 136, Potassium 4.0, Chloride 105, Carbon Dioxide 21.6, Anion Gap 10, BUN 13, Creatinine 1.46 H, Estim Creat Clear Calc 61.10, Est GFR (MDRD) Non-Af 50 L, BUN/Creatinine Ratio 9.0 L, Glucose 159 H, Calcium 8.6 08/23/24 06:02: POC Glucose 148 H Microbiology: Microbiology 04/19/25 00:20 Urine Catheter - Marx Urine Culture - Preliminary Yeast Like Organism Mixed Gram Positive Organisms 08/20/24 00:27 Blood Culture (Wb) - Right Forearm Blood Culture - Preliminary No growth in 48 hours. 08/20/24 00:27 Mucosa - Nose SARS-CoV-2, Influenza & RSV (PCR) - Final D/C Instructions Discharge Diet: Low fat / Low cholesterol, 1800 Calorie Control Diet and 8 Cup Fluid Restriction Weight Bearing Status: Weight bearing as tolerated Call your doctor if you observe: Fever of 101 or Higher, Coldness, Increased Pain, Numbness or Tingling, Change in Color, Inability to urinate, Inability to have a bowel movement, Shortness of breath, Dizziness, Fainting spells, Swelling in the ankles, Chest pain, Prolonged hiccupping, Increased palpitations (irregular heartbeat) and Calf discomfort DC O2, CPAP, BIPAP Needs Home O2 Discharge instructions: No When: IN 2 WEEKS Meaningful Use Info Meaningful Use Meaningful Use Diagnoses (Choose all that apply): None applicable Ischemic Stroke Statin Dosing Therapy Reference: STATIN DOSE THERAPY REFERENCE: * Patients > 75 years receive moderate or high dose statin therapy. * Patients 75 years or YOUNGER should receive HIGH intensity statin dose unless contraindicated. You will be required to document reason for non-treatment if statin daily dose does not meet guidelines. HIGH DOSE STATIN THERAPY DAILY Atorvastatin > than or = to 40 mg Rosuvastatin > than or = to 20 mg Amlodipine + Atorvastatin > than or = to 2.5/40 mg Ezetimibe + Simvastatin 10/80 mg Simvastatin 80mg Discharge Plan Admission Admit Date/Time: 08/20/24 03:15 Primary Reason for Your Visit: Septic shock due to UTI Attending Provider: Mao Muse Primary Care Provider: ABHISHEK ST Consulting Providers: Saroj Gutierrez; Tello Borrego; Kerline Miranda Instructions Additional Instructions / Restrictions: Tizanidine and trazodone are his home medications. The dose and the frequency was wrongly written in the home medication that has been corrected. The order corrected with patient's . Discharge Orders/Prescriptions Prescriptions: New tizanidine 2 mg Tablet 4 mg PO QPM PRN (Reason: muscle spasms) Qty: 0 0RF trazodone 50 mg Tablet 50 mg PO QHS Qty: 0 0RF Rx Instructions: Home medication. trazodone 50 mg Tablet 50 mg PO DAILY@1700 Qty: 0 0RF Rx Instructions: Home medication. cefdinir 300 mg capsule 300 mg PO BID 4 Days Qty: 8 0RF Continued allopurinol 100 MG tablet 100 mg PO DAILYCM gabapentin 800 MG tablet 800 mg PO TIDCM Centrum Silver 1 EACH tablet 1 ea PO DAILY donepezil 10 mg tablet 10 mg PO QHS Trulicity 3 mg/0.5 mL pen injector 3 mg subcut QWEEK duloxetine 60 mg capsule,delayed release(DR/EC) 60 mg PO DAILY lisinopril 2.5 mg tablet 2.5 mg PO DAILY pramipexole 0.125 mg tablet 0.125 mg PO BID quetiapine 50 mg tablet 50 mg PO DAILY tramadol 50 mg tablet 50 mg PO 4X/DAY PRN PRN (Reason: pain) Xarelto 20 mg tablet 20 mg PO DAILY Rx Instructions: must administer with evening meal atorvastatin 10 mg tablet 10 mg PO QPM ezetimibe 10 mg tablet 10 mg PO DAILY glipizide 10 mg tablet extended release 24hr 10 mg PO DAILY Jardiance 25 mg tablet 25 mg PO DAILY levothyroxine 50 mcg tablet 50 mcg PO DAILY clonidine 0.2 mg/24 hr patch weekly 1 patch topical QWEEK Changed insulin glargine [Basaglar KwikPen U-100 Insulin] 100 unit/mL (3 mL) insulin pen 35 unit subcut QPM 30 Days Qty: 0 0RF Discontinued quetiapine 100 mg tablet 100 mg PO BID trazodone 50 mg tablet 100 mg PO BID tizanidine 4 mg tablet 4 mg PO QPM Referrals / Follow Up: Radhames Brand MD [Med Staff - Active Staff] - Within 2 Weeks (BPH with recurrent UTI. Was admitted with septic shock.) Care Physician,No Primary [Non-Staff] - ABHISHEK ST CRNP [Primary Care Provider] - Disposition Disposition (needs filled in before D/C Order can be placed): Home Health Service Charges/Coding Visit Charges Inpatient E&M: 90927 Disch Hosp >30min
--- NOTE | 2024-08-23 11:21 | CASEMGMT ---
CHARLOTTE STRICKLAND called to verify PCP. Per PCP is Maite Eng. CHARLOTTE STRICKLAND called and updated [facility]. [facility] is able to accept patient with planned start of care for tomorrow. CHARLOTTE STRICKLAND update discharge plan.
--- NOTE | 2024-08-23 11:40 | PHA.DC_ITS ---
Pharmacy [facility] has performed discharge medication reconciliation and counseling for this patient. The patient's discharge medication list was reviewed for discrepancies and discrepancies were resolved. The patient was counseled on the following discharge medications and changes in medications for homegoing were reviewed. The Reason for Use, instructions for use, and potential side effects were reviewed for all new medications. The patient's questions regarding all of their medications were answered. 1. Cefdinir 300 mg PO BID x 4 days The patient was able to verbally demonstrate an understanding of their discharge medications. Medications at Discharge Home Medications allopurinol 100 mg tablet 100 mg PO DAILYCM 05/03/13 gabapentin 800 mg tablet 800 mg PO TIDCM 05/03/13 njsyqyzl-cyf-wekxf acid 0.4 mg-lycopene 300 mcg-lutein 250 mcg tablet (Centrum Silver) 1 ea PO DAILY 05/03/13 atorvastatin 10 mg tablet 10 mg PO QPM 03/18/24 donepezil 10 mg tablet 10 mg PO QHS 03/18/24 dulaglutide 3 mg/0.5 mL subcutaneous pen injector (Trulicity) 3 mg subcut QWEEK 03/18/24 duloxetine 60 mg capsule,delayed release 60 mg PO DAILY 03/18/24 empagliflozin 25 mg tablet (Jardiance) 25 mg PO DAILY 03/18/24 ezetimibe 10 mg tablet 10 mg PO DAILY 03/18/24 glipizide 10 mg tablet, extended release 24 hr 10 mg PO DAILY 03/18/24 levothyroxine 50 mcg tablet 50 mcg PO DAILY 03/18/24 lisinopril 2.5 mg tablet 2.5 mg PO DAILY 03/18/24 pramipexole 0.125 mg tablet 0.125 mg PO BID 03/18/24 quetiapine 50 mg tablet 50 mg PO DAILY 03/18/24 rivaroxaban 20 mg tablet (Xarelto) 20 mg PO DAILY 03/18/24 tramadol 50 mg tablet 50 mg PO 4X/DAY PRN PRN pain 03/18/24 clonidine 0.2 mg/24 hr weekly transdermal patch 1 patch topical QWEEK 08/19/24 cefdinir 300 mg capsule 300 mg PO BID 4 days #8 caps 08/23/24 insulin glargine 100 unit/mL (3 mL) subcutaneous pen (Basaglar KwikPen U-100 Insulin) 35 unit (0.35 mL) subcut QPM 30 days #0 mL 08/23/24 tizanidine 2 mg tablet 4 mg (2 x 2 mg) PO QPM PRN muscle spasms #0 tabs 08/23/24 trazodone 50 mg tablet 50 mg PO DAILY@1700 #0 tabs 08/23/24 trazodone 50 mg tablet 50 mg PO QHS #0 tabs 08/23/24
[2024-08-23 11:41] LABS: Bedside Glucose 178 mg/dL (74-106)
[2024-08-23] MEDS: Insulin Lispro 100 UNIT/ML INSULN.PEN SC (12:00)
--- NOTE | 2024-08-23 12:22 | PCM.PN.REN ---
Subjective Subjective no new events Objective Data Objective Data Vital Signs: Vital Signs Temp Pulse Resp BP Pulse Ox O2 Del Method O2 Flow Rate 97.9 F 66 16 155/61 H 99 Room Air 2 08/23/24 08:47 08/23/24 08:47 08/23/24 08:47 08/23/24 08:47 08/23/24 08:47 08/23/24 08:47 08/21/24 09:18 Oxygen Flow Rate (L/min) 2 Oxygen Delivery Method Room Air Weight: 141 kg Body Mass Index (BMI) 46.0 Intake & Output: Intake and Output for Last 24 Hours 08/21/24 08/22/24 08/23/24 23:59 23:59 23:59 Intake Total 900 / 900 300 / 300 50 / 50 Output Total 3400 / 3400 1700 / 1700 450 / 450 Balance -2500 / -2500 -1400 / -1400 -400 / -400 Lab / Micro Data 08/23/24 05:42 08/23/24 05:42 Labs: Laboratory Results - last 24 hr 08/20/24 00:20: Urine Color Stephanie, Urine Clarity Cloudy, Urine pH 6.0, Ur Specific [place] 1.010, Urine Protein 100 H, Urine Glucose (UA) 1000 H, Urine Ketones 5 H, Urine Occult Blood 250 H, Urine Nitrite Negative, Urine Bilirubin Negative, Urine Urobilinogen Normal, Ur Leukocyte Esterase 500 H, Urine RBC > 100 SEEN, Urine WBC >100 SEEN, Ur Squamous Epith Cells 0-5 SEEN, Amorphous Sediment 1+, Urine Bacteria 2+, Urine Mucus RARE 08/22/24 17:09: POC Glucose 194 H 08/22/24 21:21: POC Glucose 206 H 08/22/24 23:45: U Random Total Protein 44.6 H, Urine Creatinine 62.10, Protein/Creatinin Ratio 718 H 08/23/24 05:42: WBC 5.9, RBC 3.79 L, Hgb 11.7 L, Hct 35.5 L, MCV 93.7, MCH 30.9, MCHC 33.0, RDW Std Deviation 50.6 H, RDW Coeff of Veronica 14.8 H, Plt Count 103 L, MPV 8.8, Immature Gran % (Auto) 1.000 H, Neut % (Auto) 56.3, Lymph % (Auto) 28.5, [place] % (Auto) 8.1, Eos % (Auto) 5.1 H, Baso % (Auto) 1.0, Absolute Neuts (auto) 3.3, Absolute Lymphs (auto) 1.69, Nucleated RBC % 0, Sodium 136, Potassium 4.0, Chloride 105, Carbon Dioxide 21.6, Anion Gap 10, BUN 13, Creatinine 1.46 H, Estim Creat Clear Calc 61.10, Est GFR (MDRD) Non-Af 50 L, BUN/Creatinine Ratio 9.0 L, Glucose 159 H, Calcium 8.6 08/23/24 06:02: POC Glucose 148 H 08/23/24 11:21: POC Glucose 178 H Micro: Microbiology 08/20/24 00:20 Urine Catheter - Marx Urine Culture - Final Yeast, not Callie albicans Mixed Gram Positive Organisms 08/20/24 00:27 Blood Culture (Wb) - Right Forearm Blood Culture - Preliminary No growth in 48 hours. 08/20/24 00:27 Mucosa - Nose SARS-CoV-2, Influenza & RSV (PCR) - Final Physical Exam Narrative Alert to name, no apparent distress S1, S2, RRR Lungs sound clear anteriorly and posteriorly. No wheezes, rhonchi or rales Abdomen soft, rounded Trace edema bilateral lower legs Assessment & Plan Assessment/Plan (1) MISTY (acute kidney injury): (2) CKD (chronic kidney disease), stage III: PLAN: Plan This is a 74-year-old male with past medical history significant for hypertension, diabetes mellitus type 2, BPH, dementia who was admitted hospital for sepsis from UTI after presenting with confusion. Nephrology consulted in view of elevated creatinine. Patient has known history of CKD (per patient's CKD secondary to diabetes) and had been following with nephrology in [place], [place]. Reviewing recent serum creatinine trends: March 18, 2024 creatinine 1.87 mg/dL. Creatinine was 1.9 on admission. cr better. close to baseline. possible dc today. follow up after dc
[2024-08-23 13:35] VITALS: BP 151/61; PULSE 67; RESP 17; TEMP 36.6; O2SAT 95
== END 2024-08-23 14:44 | disposition home health service (06) | DRG 871 ==
LOC: ED 08-20 02:34 → ICU 08-20 04:21 → PCU 08-21 14:56
PROVIDERS: Internal Medicine Critical Care Medicine; Nurse Practitioner Adult Health; Admitting Provider Hospitalist; Emergency Provider Emergency Medicine; PCP Nurse Practitioner Family; Visit Provider Internal Medicine
DX: A41.9 Sepsis, unspecified organism (principal); R65.21 Severe sepsis with septic shock; G93.41 Metabolic encephalopathy; Z68.41 Body mass index [BMI] 40.0-44.9, adult; N17.9 Acute kidney failure, unspecified; N39.0 Urinary tract infection, site not specified; N13.8 Other obstructive and reflux uropathy; E87.5 Hyperkalemia; Z66 Do not resuscitate; F03.90 Unspecified dementia, unspecified severity, without behavioral disturbance, psychotic disturbance, mood disturbance, and anxiety; N18.32 Chronic kidney disease, stage 3b; E11.22 Type 2 diabetes mellitus with diabetic chronic kidney disease; G25.81 Restless legs syndrome; I12.9 Hypertensive chronic kidney disease with stage 1 through stage 4 chronic kidney disease, or unspecified chronic kidney disease; E03.9 Hypothyroidism, unspecified; Z79.4 Long term (current) use of insulin; E78.5 Hyperlipidemia, unspecified; M10.9 Gout, unspecified; E11.40 Type 2 diabetes mellitus with diabetic neuropathy, unspecified; E66.813 Obesity, class 3; N20.0 Calculus of kidney; R09.02 Hypoxemia; Z11.52 Encounter for screening for COVID-19; N40.1 Benign prostatic hyperplasia with lower urinary tract symptoms; R39.16 Straining to void; R35.0 Frequency of micturition; R39.15 Urgency of urination; R32 Unspecified urinary incontinence; G89.4 Chronic pain syndrome; Z79.01 Long term (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 of anticoagulants; Z79.84 Long term (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 of oral hypoglycemic drugs; Z79.85 Long-term (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 of injectable non-insulin antidiabetic drugs; Z79.890 Hormone replacement therapy; Z79.899 Other long term (current) drug therapy; Z86.718 Personal history of other venous thrombosis and embolism; Z86.711 Personal history of pulmonary embolism
CPT/HCPCS: 36415; 51702; 71275; 76770; 80048; 80053; 81001; 82570; 82962; 83605; 84145; 84156; 85025; 85027; 85610; 85730; 87040; 87086; 87088; 87631; 93005; 94668; 97161; 97166; 97530; 97535; 99285; Q9967; A4216; J2405

== ENCOUNTER 2024-10-13 17:46 | Inpatient (IN) | payer MEDICARE, MEDICAID, SELFPAY ==
[2024-10-13 17:47] VITALS: BP 116/60; PULSE 84; RESP 16; TEMP 36.6; O2SAT 97
[2024-10-13 20:29] VITALS: BP 114/71; PULSE 87; RESP 18; TEMP 36.4; O2SAT 96
[2024-10-13 20:30] VITALS: BMI 44.5
[2024-10-13] MEDS: 0.9% Normal Saline (1000mL) 1,000 ML 999 ML IV (20:34)
--- NOTE | 2024-10-13 20:34 | EX.ED.DYSGE1 ---
HPI History of Present Illness Chief Complaint: Complaint Narrative Narrative: Chief complaint and HPI: Delirium and UTI. 74-year-old male with past medical history of dementia, DM2, CKD, HTN, recurrent UTIs presents for evaluation with for delirium and UTI. states that the patient is mostly bedbound to home. She bathes him and has care providers visit patient in the home. She states that he gets recurrent UTIs. He started develop a fever several days ago in which the PCP did a urine which was positive and placed the patient on ciprofloxacin. states that his fevers improved until today. She states that he is also having intermittent delirium where he saw a schoolbus on the wall. She states that this is not his baseline. She called the PCP who recommended him coming to the emergency department. She did show me a text message in which the culture grew out Pseudomonas however no sensitivities. Patient denies any abdominal pain, nausea, vomiting, dysuria, hematuria. states that he has been making urine and eating and drinking. Review of systems: See HPI Medications: As listed on the chart Allergies: As listed on the chart PFSH: Per chart Vital signs: As listed on the chart. Reviewed. Physical exam: Gen: A&O x3, NAD Head: Normocephalic, atraumatic Eyes: No sclera icterus, conjunctiva clear, PERRL ENT: Moist mucous membranes CV: RRR, no murmurs Resp: Lungs CTA BL, no w/r/c GI: Large body habitus, abd soft, non-distended, non-tender, no r/r/g : No CVA tenderness. Circumcised penis. No penile tenderness or discharge. No penile or testicular swelling. Normal lie and position of the testicles. No testicular tenderness, masses, or skin changes. Musc: Moves all extremity Skin: Warm, dry Neuro: Alert, oriented, grossly intact, sensation intact Psych: Cooperative [facility] Medical History Kidney disease Gout Dementia Diabetes HTN (hypertension) Home Medications ?Medication ?Instructions ?Recorded ?Last Taken ?Type allopurinol 100 mg tablet 100 mg PO DAILYCM 05/03/13 Unknown History gabapentin 800 mg tablet 800 mg PO TIDCM 05/03/13 Unknown History [id number] acid 0.4 1 ea PO DAILY 05/03/13 Unknown History mg-lycopene 300 mcg-lutein 250 mcg tablet (Centrum Silver) donepezil 10 mg tablet 10 mg PO QHS 03/18/24 Unknown History dulaglutide 3 mg/0.5 mL 3 mg subcut QWEEK 03/18/24 Unknown History subcutaneous pen injector (Trulicity) duloxetine 60 mg capsule,delayed 60 mg PO DAILY 03/18/24 Unknown History release empagliflozin 25 mg tablet 25 mg PO DAILY 03/18/24 Unknown History (Jardiance) ezetimibe 10 mg tablet 10 mg PO DAILY 03/18/24 Unknown History glipizide 10 mg tablet, extended 10 mg PO DAILY 03/18/24 Unknown History release 24 hr levothyroxine 50 mcg tablet 50 mcg PO DAILY 03/18/24 Unknown History lisinopril 2.5 mg tablet 2.5 mg PO DAILY 03/18/24 Unknown History pramipexole 0.125 mg tablet 0.125 mg PO BID 03/18/24 Unknown History quetiapine 50 mg tablet 50 mg PO DAILY 03/18/24 Unknown History tramadol 50 mg tablet 50 mg PO 4X/DAY pain 03/18/24 Unknown History cefdinir 300 mg capsule 300 mg PO BID 4 days #8 caps 08/23/24 Unknown Rx tizanidine 2 mg tablet 4 mg (2 x 2 mg) PO QPM PRN muscle 08/23/24 Unknown Rx spasms #0 tabs trazodone 50 mg tablet 50 mg PO DAILY@1700 #0 tabs 08/23/24 Unknown Rx trazodone 50 mg tablet 50 mg PO QHS #0 tabs 08/23/24 Unknown Rx insulin glargine 100 unit/mL (3 75 unit subcut QPM 10/13/24 Unknown History mL) subcutaneous pen (Basaglar KwikPen U-100 Insulin) Allergy/AdvReac Type Severity Reaction Status Date / Time ibuprofen AdvReac Abd Verified 10/13/24 17:49 cramps/diarrhea Surgical History History of left shoulder replacement H/O knee surgery Social History Smoking Status: Never smoker EXAM Physical Exam Const Vital Signs: 10/13/24 17:47 10/13/24 20:29 10/13/24 21:00 Temperature 98 F 97.6 F L 97.8 F Temperature Source Oral Oral Oral Pulse Rate 84 87 73 Respiratory Rate 16 18 16 Blood Pressure 116/60 114/71 137/72 H Blood Pressure Mean 78 85 93 Pulse Ox 97 96 96 Oxygen Delivery Method Room Air Room Air Room Air 10/13/24 22:00 10/13/24 23:00 Temperature 97.4 F L 97.9 F Temperature Source Oral Oral Pulse Rate 89 70 Respiratory Rate 14 12 Blood Pressure 135/62 H 136/68 H Blood Pressure Mean 86 90 Pulse Ox 95 95 Oxygen Delivery Method Room Air Room Air MDM MDM MDM Narrative Medical decision making narrative: 74-year-old male with past medical history of dementia, DM2, CKD, HTN, recurrent UTIs presents for evaluation with for delirium and UTI. states the patient was diagnosed with UTI and currently on ciprofloxacin. States he developed delirium today as well as fever. On presentation, patient in no acute distress. Alert and oriented x 3. Vitals are stable. Differential diagnosis includes but is not limited to UTI, MISTY, electrolyte abnormality, pyelonephritis. NS bolus and laboratory workup ordered. CBC without leukocytosis or anemia. Patient has baseline thrombocytopenia. Patient has MISTY with BUN of 21 and creatinine of 1.96. In August he had a normal BUN. In August creatinine was 1.46. Glucose 239, patient is a known diabetic. No anion gap. Lactic acid 3.7. Fluids running. 30 cc/kg bolus not ordered as patient is not hypotensive. Blood culture ordered. UA is positive for pyuria without bacteria. Urine culture sent. This may be secondary to the patient being on ciprofloxacin. Per text message that showed me patient grew out Pseudomonas without sensitivity. On patient's previous urine cultures on chart review he has grown out Callie and gram-positive organisms. Will give Zosyn to cover broadly as well as for Pseudomonas. CT abdomen pelvis without contrast shows urinary bladder wall thickening consistent with cystitis. Constipation. No urolithiasis or hydronephrosis. Patient will warrant admission. Patient and updated of all the results and the plan. They confirmed understanding the plan. Hospitalist accepted admission. Impression: 1. Sepsis secondary to UTI 2. MISTY on CKD 3. Lactic acidosis 4. Reported delirium 5. Chronic thrombocytopenia 6. Hyperglycemia in a known type II diabetic Lab Data Labs: Laboratory Results - last 24 hr 10/13/24 20:33 WBC 8.1 RBC 4.59 L Hgb 14.0 Hct 42.8 MCV 93.2 MCH 30.5 MCHC 32.7 RDW Std Deviation 50.2 H RDW Coeff of Veronica 14.6 Plt Count 142 L MPV 9.1 Immature Gran % (Auto) 1.000 H Neut % (Auto) 67.1 Lymph % (Auto) 21.5 Conway % (Auto) 6.6 Eos % (Auto) 2.9 Baso % (Auto) 0.9 Absolute Neuts (auto) 5.5 Absolute Lymphs (auto) 1.75 Nucleated RBC % 0 Sodium 135 Potassium 4.3 Chloride 101 Carbon Dioxide 19.3 L Anion Gap 15 BUN 21 H Creatinine 1.96 H Estim Creat Clear Calc 44.76 L Est GFR (MDRD) Non-Af 35 L BUN/Creatinine Ratio 10.7 Glucose 239 H Lactic Acid 3.7 H* Calcium 8.9 Urine Color Yellow Urine Clarity Turbid Urine pH 6.0 Ur Specific Burton 1.020 Urine Protein 100 H Urine Glucose (UA) 1000 H Urine Ketones Negative Urine Occult Blood 150 H Urine Nitrite Negative Urine Bilirubin Negative Urine Urobilinogen Normal Ur Leukocyte Esterase 500 H Urine RBC 0 SEEN Urine WBC >100 SEEN Ur Squamous Epith Cells 0 SEEN Urine Bacteria 0 SEEN Urine Mucus 0 SEEN Radiography Diagnostic Testing: Clinical Impression(s) from Imaging Studies Abdomen/Pelvis CT 10/13/24 21:33 IMPRESSION: Urinary bladder wall thickening which may represent detrusor muscle hypertrophy or cystitis. Correlate with urinalysis. Dense colonic stool which may suggest constipation. IVC filter. If not actively managed by Interventional Radiology, consider consult. Reading Location: [id number] Discharge Plan Triage Chief Complaint: Complaint ED Provider: Nick Coyle Dx/Rx/DC Orders Prescriptions: No Action allopurinol 100 MG tablet 100 mg PO DAILYCM gabapentin 800 MG tablet 800 mg PO TIDCM Centrum Silver 1 EACH tablet 1 ea PO DAILY insulin glargine [Basaglar KwikPen U-100 Insulin] 100 unit/mL (3 mL) insulin pen 75 unit subcut QPM donepezil 10 mg tablet 10 mg PO QHS Trulicity 3 mg/0.5 mL pen injector 3 mg subcut QWEEK duloxetine 60 mg capsule,delayed release(DR/EC) 60 mg PO DAILY lisinopril 2.5 mg tablet 2.5 mg PO DAILY pramipexole 0.125 mg tablet 0.125 mg PO BID quetiapine 50 mg tablet 50 mg PO DAILY tramadol 50 mg tablet 50 mg PO 4X/DAY ezetimibe 10 mg tablet 10 mg PO DAILY glipizide 10 mg tablet extended release 24hr 10 mg PO DAILY Jardiance 25 mg tablet 25 mg PO DAILY levothyroxine 50 mcg tablet 50 mcg PO DAILY tizanidine 2 mg Tablet 4 mg PO QPM PRN (Reason: muscle spasms) Qty: 0 0RF trazodone 50 mg Tablet 50 mg PO QHS Qty: 0 0RF Rx Instructions: Home medication. trazodone 50 mg Tablet 50 mg PO DAILY@1700 Qty: 0 0RF Rx Instructions: Home medication. cefdinir 300 mg capsule 300 mg PO BID 4 Days Qty: 8 0RF Primary Care Provider: ABHISHEK ST Referrals: ABHISHEK ST CRNP [Primary Care Provider] - Print Language: Macanese
[2024-10-13 20:40] LABS: Bacteria 0 SEEN /hpf (None Seen); Mucous, Urine 0 SEEN /hpf (<or=2+); Red Blood Cells-Urine 0 SEEN /hpf (0-5); Squamous Epithelial Cells - UA 0 SEEN /hpf (0-5)
[2024-10-13 20:44] LABS: Absolute Lymphocyte Count 1.75 X10^3/uL (0.83-4.51); Absolute Neutrophil Count 5.5 X10^3/uL (2.0-7.7); Basophil# 0.07 X10^3/uL; Basophil% 0.9 % (0-1); Eosinophil# 0.24 X10^3/uL; Eosinophils% 2.9 % (0-5); Hematocrit 42.8 % (40-54); Lymphocyte # 1.75 X10^3/ul (0.83-4.51); Lymphocyte % 21.5 % (19-41); Mean Corp Hgb Conc 32.7 g/dL (32-36); Mean Corpuscular Hgb 30.5 pg (27.0-32.0); Mean Corpuscular Volume 93.2 fL (80-94); Mean Platelet Vol. 9.1 fl (6.2-12.0); Monocyte# 0.54 X10^3/uL; Monocyte% 6.6 % (0-10); NRBC Flagged by Analyzer 0 % (0-5); Neutrophil # 5.46 X10^3/uL (2.7-7.7); Neutrophil % 67.1 % (47-70); Platelet Count 142 K/mm3 (150-450); RBC Distribution Width CV 14.6 % (11.6-14.6); RBC Distribution Width SD 50.2 fl (35.1-43.9); Red Blood Count 4.59 M/mm3 (4.6-6.2); White Blood Count 8.1 K/mm3 (4.4-11.0)
[2024-10-13 20:47] LABS: Color, Urine Yellow (Yellow); Glucose, Dipstick 1000 mg/dl (Normal); Ketone-Dipstick Negative (Negative); Leukocyte Esterase-Dipstick 500 /ul (Negative); Nitrite-Dipstick Negative (Negative); Occult Blood-Urine 150 /ul (Negative); Protein-Dipstick 100 mg/dl (Negative); Urine Bilirubin Dipstick Negative (Negative); Urine Clarity Turbid (Clear); Urine Urobilinogen Normal (Normal)
[2024-10-13 21:00] VITALS: BP 137/72; PULSE 73; RESP 16; TEMP 36.6; O2SAT 96
[2024-10-13 21:18] LABS: Anion Gap 15 (5-15); BUN 21 mg/dL (4-19); BUN/Creat Ratio 10.7 RATIO (10-20); Calcium,Total 8.9 mg/dL (7.6-11.0); Carbon Dioxide 19.3 mmol/L (21.0-32.0); Chloride 101 mmol/L (98-108); Creatinine, Serum 1.96 mg/dL (0.70-1.20); EST Glomerular Filtration Rate 35 (>60); Estimated Creatinine Clearance 44.76 ml/min (50-250); Glucose 239 mg/dL (70-99); Potassium 4.3 mmol/L (3.3-5.1); Sodium Level 135 mmol/L (133-145)
[2024-10-13 21:20] LABS: Lactic Acid 3.7 mmol/L (0.0-2.0)
--- OUTSIDE RECORDS SUMMARY | 2024-10-13 21:31 | XMS RPT_ITS | CCD ---
Author Organization [facility] CliniSyar Care Team Providers Care Patrol Man Name Role Phone MAO ABBASI Unavailable SHEILA DUVAL Unavailable MAO ABBASI Unavailable SHEILA DUVAL Unavailable SHEILA DUVAL Unavailable SHEILA DUVAL Unavailable SHEILA DUVAL Unavailable MUKUND, SHEILA Unavailable MUKUND, SHEILA Unavailable MUKUND, SHEILA Unavailable MUKUND, SHEILA Unavailable MUKUND, SHEILA Unavailable MUKUND, SHEILA Unavailable MUKUND, SHEILA Unavailable MUKUND, SHEILA Unavailable Maryan Tony Attending Unavailable Maryan Tony Attending Unavailable Maryan Tony Attending Unavailable Maryan Tony Attending Unavailable Maryan Tony Attending Unavailable Snuita Barnes Attending Unavailable Maryan Tony Attending Unavailable Ericka Cassidy Primary Care Provider MD [facility] Emergency Provider MD Verito Devi I Admit Provider MD Verito Devi I Attending Provider Ericka Cassidy Primary Care Provider MD [facility] [place] Emergency Provider MD Verito Devi I Admit Provider MD Verito Devi I Attending Provider MD Charisse Valencia Other Provider MD Armen Carl Other Provider [facility] Other Provider DO Naresh Sainz Admit Provider DO Emeli Naresh E Attending Provider Devika Stein Primary Care Provider [phone] [facility] Other Provider DEVIKA STEIN Primary Care Unavailable STEINDEVIKA Attending Unavailable PROVIDER, UNKNOWN Surgeon Unavailable ERICKA CASSIDY Primary Care Unavailabl e KINNEAR, DO LOUIS Admitting Unavaila ble KINNEAR, DO LOUIS Attending Unavaila ble PROVIDER, UNKNOWN Surgeon Unavailable PROVIDER, UNKNOWN Surgeon Unavailable Errol Silva Referring Unavailable Errol Silva Attending Unavailable Naresh Sainz Admitting Unavailable Naresh Sainz Attending Unavailable Devika Stein Primary Care Unavailable [facility] Consulting Unavailable Ericka Cassidy Primary Care Unavailable Verito Devi I Admitting Unavailable Verito Devi I Attending Unavailable Charisse Valencia Consulting Unavailable Armen Carl Consulting Unavailable [facility] Consulting Unavailable Care Physician, No Primary Primary Care Provider Unavailable Dr. Kaushik Brown DO Emergency Provider [phone] Dr. Saroj Gutierrez DO Admit Provider Dr. Saroj Gutierrez DO Attending Provider Dr. Saroj Gutierrez DO Other Provider Care Physician, No Primary Primary Care Unava ilable Saroj Gutierrez Admitting Unavailable Saroj Gutierrez Consulting Unavailable Mao Muse Attending Unavailable Tello Borrego Consulting Unavailable Kerline Miranda Consulting Unavailable Mao Muse Consulting Unavailable [facility] Primary Care Unavailable Saroj Gutierrez Consulting Unavailable Care Physician, No Primary Primary Care Unava ilable Saroj Gutierrez Admitting Unavailable Saroj Gutierrez Attending Unavailable Steve Ocampo Consulting Unavailable Joesph Syed Consulting Unavailable Manas Osman Consulting Unavailable Lance Bonner Consulting Unavailable Darnell Mora Consulting Unavailable Andrzej, Spencer Consulting Unavailable Maximiliano Cole Consulting Unavailable Aileen Abdi Consulting Unavailab Lio Moreno Consulting Unavailable Baljinder Gordon Consulting Unavailable Kaushik Sykes Consulting Unavailable Parker, Alejandra Consulting Unavailable Aljundi, Lamia Consulting Unavailable Vasquez, Dyana Consulting Unavailable Rahel, Renato Consulting Unavailable Irukulla, Lucian Consulting Unavailable Korin, Joes Consulting Unavailable Dhesi, Triston Consulting Unavailable Ramos, Sujoy Consulting Unavailable [place], [place] Consulting Unavailable Fernstrom, Froilan Consulting Unavailable Tim, Jose Consulting Unavailable Carl Marcos Consulting Unavailable Aviva Brandt Attending Unavailable Care Physician, No Primary Primary Care Unava ilable Saroj Gutierrez Consulting Unavailable Saroj Gutierrez Admitting Unavailable [facility] Primary Care Unavailable Mao Muse Attending Unavailable Tello Borrego Consulting Unavailable Kerline Miranda Consulting Unavailable Micha KRUSE, Dr. Cavanaugh Attending Provider Dr. Tello Borrego MD Other Provider [phone] Ruben KRUSE, Dr. Churchill Other Provider [facility] Primary Care Provider Dr. Mao Muse MD Other Provider Damaris KRUSE, Dr. Wilson Other Provider Dr. Joesph Syed MD Other Provider Dr. Manas Osman MD Other Provider Dr. Lance Bonner DO Other Provider [phone] Dr. Darnell Mora MD Other Provider Dr. Spencer Donnelly MD Other Provider Dr. Maximiliano Cole MD Other Provider Jin KRUSE, Dr. Gallagher Other Provider [phone] Dr. Lio Lucas MD Other Provider [phone] Evan KRUSE, Dr. Gale Other Provider Onel KRUSE, Dr. Faulkner Other Provider Parker KRUSE, Dr. Roberts Other Provider Ladi KRUSE, Dr. Lowe Other [facility] Vasquez MD, Dr. Turpin Other Provider Rahel KRUSE, Dr. Gross Other Provider [phone] Mary KRUSE, Dr. Epstein Other Provider Korin KRUSE, Dr. Garcia Other Provider Monik MARCOS, Dr. Goldstein Other Provider [phone] Rachel KRUSE, Dr. Osullivan Other Provider [phone] Graciela KRUSE, Dr. Camarena Other Provider Dr. Froilan Dan DO Other Provider Tim KRUSE, Dr. Garcia Other Provider [phone] Hemant KRUSE, Dr. Henry Other Provider Allergies Allergy Classification Reported Allergen(s) Allergy Type Date of Onset Reaction(s) Facility (12 sources) ibuprofen; Translations: [Ibuprofen] drug allergy 06-02-2022 [facility] [place] (3 sources) Ibuprofen Drug Allergy 07-02-2021 [facility] Medications Current Medications Medication Drug Class(es) Dates Sig (Normalized) Sig (Original) allopurinol 100 mg oral tablet (14 sources) Xanthine Oxidase Inhibitor Start: 05-03-2013 take 1 tablet by mouth once daily at mealtime Allopurinol 100 MG tablet Active 100 mg PO DAILY WITH MEALS May 03, 2013 1:00am atorvastatin 10 mg oral tablet (5 sources) HMG-CoA Reductase Inhibitor Start: 03-18-2024 take 1 tablet by mouth once daily in the evening Atorvastatin 10 mg tablet Active 10 mg PO EVERY EVENING March 18, 2024 1:00am Start: 10-23-2019 take 10 mg by mouth at bedtime Atorvastatin Active 10 MG PO Bedtime October 22, 2019 11:00pm cefdinir 300 mg oral capsule (1 source) Cephalosporin Antibacterial Start: 08-23-2024 take 1 capsule by mouth twice daily Cefdinir 300 mg capsule Active 300 mg PO TWICE A DAY 8 August 23, 2024 12:00am ciprofloxacin 500 mg oral tablet (1 source) Quinolone Antimicrobial Start: 06-02-2022 take 500 mg by mouth twice daily Ciprofloxacin Hcl Active 500 MG PO Twice A Day June 02, 2022 12:00am 168 hr cloNIDine 0.34687 mg/hr transdermal system (4 sources) Central alpha-2 Adrenergic Agonist Start: 08-19-2024 Clonidine 0.2 mg/24 hr patch weekly Active 1 NMA TOPICAL EVERY WEEK August 19, 2024 12:00am Start: 04-23-2022 Clonidine Acti ve 1 EACH TD Bedolla@1000 April 23, 2022 12:00am donepezil hydrochloride 10 mg oral tablet (4 sources) Start: 03-18-2024 take 1 tablet by mouth at bedtime Donepezil 10 mg tablet Active 10 mg PO AT BEDTIME March 18, 2024 1:00am Start: 04-23-2022 take 5 mg by mouth once daily Donepezil Active 5 MG PO Every Day April 23, 2022 12:00am Dulaglutide (2 sources) GLP-1 Receptor Agonist Start: 03-18-2024 Dulaglutide (Trulicity) 3 mg/0.5 mL pen injector Active 3 mg SC EVERY WEEK March 18, 2024 1:00am DULoxetine 60 mg delayed release oral capsule (13 sources) Serotonin and Norepinephrine Reuptake Inhibitor Start: 03-18-2024 take 1 capsule by mouth once daily Duloxetine 60 mg capsule,delayed release(DR/EC) Active 60 mg PO DAILY March 18, 2024 1:00am Start: 11-24-2017 take 60 mg by mouth once daily Duloxetine Active 60 MG PO Daily November 23, 2017 11:00pm take 60 mg by mouth at bedtime d uloxetine oral 60 mg At bedtime antidepressant antidepressant Oral Active take 60 mg by mouth at bedtime d uloxetine oral 60 mg At bedtime antidepressant antidepressant Oral Active take 80 mg by mouth at bedtime d uloxetine oral 80 mg At bedtime antidepressant antidepressant Oral Active empagliflozin 25 mg oral tablet (2 sources) Sodium-Glucose Cotransporter 2 Inhibitor Start: 03-18-2024 take 1 tablet by mouth once daily Empagliflozin (Jardiance) 25 mg tablet Active 25 mg PO DAILY March 18, 2024 1:00am ezetimibe 10 mg oral tablet (5 sources) Dietary Cholesterol Absorption Inhibitor Start: 03-18-2024 take 1 tablet by mouth once daily Ezetimibe 10 mg tablet Active 10 mg PO DAILY March 18, 2024 1:00am Start: 10-23-2019 End: 04-19-2022 take 1 tablet by mouth once daily Ezetimibe (Zetia) 10 MG tablet Discontinued 10 MG PO Daily October 22, 2019 11:00pm April 19, 2022 12:47am gabapentin 800 mg oral tablet (14 sources) Anti-epileptic Agent Start: 05-03-2013 take 1 tablet by mouth three times daily at mealtime Gabapentin 800 MG tablet Active 800 mg PO 3 TIMES DAILY WITH MEALS May 03, 2013 1:00am take 800 mg by mouth every six h ours gabapentin oral 800 mg 4 times per day nerve pain nerve pain Oral Active glipiZIDE er 10 mg 24 hr extended release oral tablet (5 sources) Sulfonylurea Start: 03-18-2024 take 1 tablet by mouth once daily Glipizide 10 mg tablet extended release 24hr Active 10 mg PO DAILY March 18, 2024 1:00am Start: 11-24-2017 take 2 tablets by mo [facility] once daily Glipizide (Glucotrol) 5 MG tablet Active 10 MG PO Daily November 23, 2017 11:00pm 3 ml insulin glargine 100 unt/ml pen injector (3 sources) Insulin Analog Start: 08-23-2024 Insulin Glargi ne (Basaglar Sarapen U-100 Insulin) 100 unit/mL (3 mL) insulin pen Active 35 U SC EVERY EVENING 0 August 23, 2024 11:14am Start: 03-18-2024 End: 08-23-2024 Insulin Glargine (Basaglar K huangkpen U-100 Insulin) 100 unit/mL (3 mL) insulin pen Discontinued 75 U SC EVERY EVENING March 18, 2024 1:00am August 23, 2024 11:14am Insulin Glargine (Lantus Solostar U-100 Insulin) 100 unit/mL (3 mL) Insulin Pen (2 sources) Start: 04-19-2022 Insulin Glargine (Lantus Solostar U-100 Insulin) 100 unit/mL (3 mL) Insulin Pen Active 75 UNIT SQ Every Day At Bedtime April 19, 2022 12:00am levothyroxine sodium 0.05 mg oral tablet (2 sources) l-Thyroxine Start: 03-18-2024 take 1 tablet by mouth once daily Levothyroxine 50 mcg tablet Active 50 ug PO DAILY March 18, 2024 1:00am lisinopril 2.5 mg oral tablet (2 sources) Angiotensin Converting Enzyme Inhibitor Start: 03-18-2024 take 1 tablet by mouth once daily Lisinopril 2.5 mg tablet Active 2.5 mg PO DAILY March 18, 2024 1:00am LORazepam 1 mg oral tablet (2 sources) Benzodiazepine Start: 06-01-2022 End: 06-01-2022 take 1 mg by mouth once daily Lorazepam Discontinued 1 MG PO Daily June 01, 2022 12:00am June 01, 2022 1:15am Olgzovrt-Yst-Sb-Lyc open-Lutein (Centrum Silver Tablet) 1 EACH tablet (2 sources) Start: 05-03-2013 Hshsgpkb-Nuq-Lu-Ly copen-Lutein (Centrum Silver Tablet) 1 EACH tablet Active 1 NMA PO DAILY May 03, 2013 1:00am Start: 05-03-2013 Bipcdmlf-Fgp-I c-Dvncntv-Gksufx (Centrum Silver Tablet) 1 EACH tablet Active 1 EACH PO DAILY May 03, 2013 1:00am polyethylene glycol 3350 69860 mg powder for oral solution (2 sources) Osmotic Laxative Start: 04-23-2022 take 17 g by mouth once daily as needed Polyethylene Glycol 3350 Active 17 GM PO Daily as needed April 23, 2022 12:00am pramipexole dihydrochloride 0.125 mg oral tablet (13 sources) Nonergot Dopamine Agonist Start: 03-18-2024 take 1 tablet by mouth twice daily Pramipexole 0.125 mg tablet Active 0.125 mg PO TWICE A DAY March 18, 2024 1:00am Start: 05-17-2018 take 0.125 mg by brooks at bedtime Pramipexole Active 0.125 MG PO Bedtime May 17, 2018 12:00am take 2 tablets by mo [facility] at bedtime Pramipexole dihydrochloride 0.125 MG Oral Tablet [Mirapex] 0.25 mg At bedtime 1-2 tabs at bedtime 1-2 tabs at bedtime Oral Active QUEtiapine 50 mg oral tablet (8 sources) Atypical Antipsychotic Start: 03-18-2024 take 1 tablet by mouth once daily Quetiapine 50 mg tablet Active 50 mg PO DAILY March 18, 2024 1:00am Start: 03-18-2024 End: 08-23-2024 take 1 tablet by mouth twice daily Quetiapine 100 mg tablet Discontinued 100 mg PO TWICE A DAY March 18, 2024 1:00am August 23, 2024 11:10am Start: 05-31-2022 take 1 tablet by brooks th at bedtime Quetiapine Active 1 TAB PO Bedtime May 31, 2022 12:00am Start: 04-19-2022 take 50 mg by mouth once daily Quetiapine Active 50 MG PO Every Day April 19, 2022 12:00am rivaroxaban 20 mg oral tablet (2 sources) Factor Xa Inhibitor Start: 03-18-2024 take 1 tablet by mouth once daily at dinner Rivaroxaban (Xarelto) 20 mg tablet Active 20 mg PO DAILY March 18, 2024 1:00am must administer with evening meal tiZANidine 2 mg oral tablet (17 sources) Central alpha-2 Adrenergic Agonist Start: 08-23-2024 take 2 tablets by mouth once daily in the evening as needed for muscle spasms Tizanidine 2 mg Tablet Active 4 mg PO EVERY EVENING as needed for muscle spasms 0 August 23, 2024 12:00am Start: 03-18-2024 End: 08-23-2024 take 1 tablet by mouth once daily in the evening Tizanidine 4 mg tablet Discontinued 4 mg PO EVERY EVENING March 18, 2024 1:00am August 23, 2024 11:09am Start: 11-24-2017 End: 04-19-2022 take 4 mg by mouth once daily Tizanidine Active 4 MG P O Daily April 19, 2022 12:00am take 4 mg by mouth e very twenty-four hours Zanaflex 4 mg Every day muscle relaxant muscle relaxant Oral Active traMADol hydrochloride 50 mg oral tablet (15 sources) Opioid Agonist Start: 03-18-2024 take 1 tablet by mouth four times daily as needed for pain Tramadol 50 mg tablet Active 50 mg PO 4 TIMES DAILY NEEDED as needed for pain March 18, 2024 1:00am Start: 11-24-2017 End: 04-23-2022 take 50 mg by mouth every six hours Tramadol Discontinued 50 MG PO Q6H April 19, 2022 12:00am April 23, 2022 10:04am take 50 mg by mouth at bedtime t ramadol oral 50 mg At bedtime pain pain Oral Active traZODone hydrochloride 50 mg oral tablet (7 sources) Serotonin Reuptake Inhibitor Start: 08-23-2024 take 1 tablet by mouth once daily Trazodone 50 mg Tablet Active 50 mg PO DAILY@1700 0 August 23, 2024 12:00am Home medication. Start: 03-18-2024 End: 08-23-2024 take 2 tablets by mouth twice daily Trazodone 50 mg tablet Discontinued 100 mg PO TWICE A DAY March 18, 2024 1:00am August 23, 2024 11:11am Start: 05-17-2018 End: 04-19-2022 take 150 mg by mouth at bedtime Trazodone Discontinued 150 MG PO Bedtime May 17, 2018 12:00am April 19, 2022 12:42am Warfarin Sodium Sliding Scal e (Coumadin Sliding Scale) 1 TAB Tablet (3 sources) Start: 10-23-2019 Warfarin Sodiu m Sliding Scale (Coumadin Sliding Scale) 1 TAB Tablet Active 5 MG PO Daily October 22, 2019 11:00pm Completed/Discontinued Medications Medication Drug Class(es) Dates Sig (Normalized) Sig (Original) acetaminophen 325 mg / HYDROcodone bitartrate 5 mg oral tablet (12 sources) Opioid Agonist take 300 tablets by mouth every six hours Acetaminophen 300 MG / Hydrocodone Bitartrate 5 MG Oral Tablet [Vicodin] Every 6 hours pain pain Oral Active take 1 tablet by brooks th every six hours as needed hydrocodone 5 mg-acetaminophen 325 mg ta blet 1 tablet(s) Every 6 hours PRN By Mouth Active acetaminophen 325 mg / oxyCODONE hydrochloride 5 mg oral tablet (3 sources) Opioid Agonist Start: 11-25-2017 End: 05-17-2018 Oxycodone-Acetaminophen (Percocet 5-325 Mg Tablet) 1 EACH Tablet Discontinued 1 EACH PO 4 times a day as needed 20 09November 24, 2017 11:00pm May 17, 2018 3:05pm [id number] 200 actuat albuterol 0.09 mg/actuat metered dose inhaler (2 sources) beta2-Adrene rgic Agonist Start: 03-18-2024 End: 08-19-2024 Albuterol Sulfate 90 mcg/actuation HFA aerosol inhaler Discontinued 2 NMA INHALATION NEEDED March 18, 2024 1:00am August 19, 2024 11:59pm busPIRone hydrochloride 15 mg oral tablet (14 sources) Start: 11-24-2017 End: 04-19-2022 take 15 mg by mouth every twelve hours Buspirone Discontinued 15 MG PO Every 12 hours November 23, 2017 11:00pm April 19, 2022 12:43am Start: 05-03-2013 End: 03-18-2024 Buspirone 15 MG tablet Disco ntinued 37.5 mg PO DAILY May 03, 2013 1:00am March 18, 2024 1:01pm Start: 05-03-2013 take 37.5 mg by mout h once daily Buspirone Active 37.5 MG PO DAILY May 03, 2013 1:00am take 15 mg by mouth every twelve hours buspirone oral 15 mg 2 times per day for anxiety for anxiety Oral Active celecoxib 200 mg oral capsule (3 sources) Nonsteroidal Anti-inflammatory Drug Start: 05-03-2013 End: 03-18-2024 take 1 capsule by mouth once daily Celecoxib 200 MG capsule Discontinued 200 mg PO DAILY May 03, 2013 1:00am March 18, 2024 1:02pm centram silver (8 sources) take 1 tablet by mouth once daily centram silver 1 tablet Every day vitamin vitamin Oral Active cephalexin 500 mg oral capsule (6 sources) Cephalosporin Antibacterial Start: 11-06-2022 End: 03-18-2024 take 1 capsule by mouth every six hours Cephalexin 500 mg capsule Discontinued 500 mg PO EVERY 6 HOURS 28 11November 06, 2022 12:00am March 18, 2024 11:58am Start: 10-23-2019 End: 04-19-2022 take 500 mg by mouth every six hours Cephalexin Discontinued 500 MG PO Every 6 Hours October 22, 2019 11:00pm April 19, 2022 12:43am clonazePAM 2 mg oral tablet (3 sources) Benzodiazepine Start: 05-03-2013 End: 03-18-2024 take 1 tablet by mouth twice daily Clonazepam (Klonopin) 2 MG tablet Discontinued 2 mg PO TWICE A DAY May 03, 2013 1:00am March 18, 2024 1:02pm doxazosin 2 mg oral tablet (5 sources) alpha-Adrenergic Maribell Start: 03-18-2024 End: 03-18-2024 take 1 tablet by mouth once daily Doxazosin 2 mg tablet Discontinued 2 mg PO DAILY March 18, 2024 1:00am March 18, 2024 12:58pm Start: 05-17-2018 take 2 mg by mouth twice daily Doxazosin Active 2 MG PO Twice A Day May 17, 2018 12:00am fenofibrate 145 mg oral tablet (14 sources) Peroxisome Proliferator Receptor alpha Agonist Start: 05-03-2013 End: 03-18-2024 take 1 tablet by mouth once daily Fenofibrate Nanocrystallized 145 MG tablet Discontinued 145 mg PO DAILY May 03, 2013 1:00am March 18, 2024 1:02pm 72 hr fentaNYL 0.0375 mg/hr transdermal system (14 sources) Opioid Agonist Start: 11-24-2017 End: 04-19-2022 Fentanyl Discontinued 12 MG TD 3 times a week November 23, 2017 11:00pm April 19, 2022 12:46am Start: 05-03-2013 End: 03-18-2024 Fentanyl 25 MCG patch Discon tinued 25 ug TRANSDERM. Q72H May 03, 2013 1:00am March 18, 2024 11:58am End: 08-25-2016 fentanyl transdermal 50 mg p ain pain TD Aug 25, 2016 Discontinued Course Completed fentanyl transde rmal 50 mg pain pain TD Active furosemide 40 mg oral tablet (3 sources) Loop Diuretic Start: 05-03-2013 End: 03-18-2024 take 1 tablet by mouth once daily Furosemide 40 MG tablet Discontinued 40 mg PO DAILY May 03, 2013 1:00am March 18, 2024 1:02pm glyBURIDE 5 mg oral tablet (8 sources) Sulfonylurea take 5 mg by mouth twice daily before mealtime glyburide oral 5 mg 2 times per day before meals blood sugar blood sugar Oral Active metFORMIN hydrochloride 500 mg oral tablet (11 sources) Biguanide Start: 05-03-2013 End: 03-18-2024 take 1 tablet by mouth three times daily at mealtime Metformin 500 MG tablet Discontinued 500 mg PO 3 TIMES DAILY WITH MEALS May 03, 2013 1:00am March 18, 2024 1:02pm take 1000 mg by mout h twice daily before mealtime metformin oral 1,000 mg 2 times per day before meals blood sugar blood sugar Oral Active Tpexaito-Nlp-Mm-Lycopen-Lute in (Centrum Silver) 1 EACH tablet (4 sources) Start: 11-24-2017 End: 04-19-2022 take 1 tablet by mouth once daily Kphgyeqj-Juo-Kc-Lycopen-Lutein (Centrum Silver) 1 EACH tablet Discontinued 1 EACH PO Daily November 23, 2017 11:00pm April 19, 2022 12:42am Start: 05-03-2013 take 1 tablet by brooks th once daily Gvqxaihk-Aoo-Ny-Lycopen-Lutein (Centrum Silver) 1 EACH tablet Active 1 NMA PO DAILY May 03, 2013 1:00am 12 hr orphenadrine citrate 100 mg extended release oral tablet (3 sources) Muscle Relaxant Start: 05-03-2013 End: 03-18-2024 take 1 tablet by mouth twice daily Orphenadrine Citrate 100 MG tablet Discontinued 100 mg PO TWICE A DAY May 03, 2013 1:00am March 18, 2024 1:03pm pioglitazone 15 mg oral tablet (3 sources) Peroxisome Proliferator Receptor alpha Agonist, Peroxisome Proliferator Receptor gamma Agonist, Thiazolidinedione Start: 11-24-2017 End: 04-19-2022 take 15 mg by mouth once daily in the morning Pioglitazone Discontinued 15 MG PO Every Morning November 23, 2017 11:00pm April 19, 2022 12:43am potassium (8 sources) take 10 mEq by mouth every twenty-four hours potassium oral 10 mEq Every day supplement supplement Oral Active potassium oral 1 0 mEq supplement supplement Oral Active potassium chloride 20 meq extended release oral tablet (3 sources) Start: 05-03-2013 End: 03-18-2024 Klor-Con M10 20 MEQ tablet Discontinued 20 meq PO DAILY May 03, 2013 1:00am March 18, 2024 1:01pm Prampexole (4 sources) End: 08-25-2016 take 125-1 tablets by mouth at bedtime Prampexole 125 mg 1-2 tabs at bedtime 1-2 tabs at bedtime Oral Aug 25, 2016 Discontinued Course Completed prampexole (8 sources) End: 01-30-2015 take 125 mg by mouth at bedtime prampexole 125 mg At bedtime can take 1-2 can take 1-2 Oral Jan 30, 2015 Discontinued Course Completed ramipril 10 mg oral capsule (14 sources) Angiotensin Converting Enzyme Inhibitor Start: 05-03-2013 End: 03-18-2024 take 1 capsule by mouth once daily Ramipril 10 MG capsule Discontinued 10 mg PO DAILY May 03, 2013 1:00am March 18, 2024 1:03pm Altace Every day blood pressure blood pressure Oral Active ramprilisapsil (8 sources) End: 01-30-2015 take 10 mg by mouth every twenty-four hours ramprilisapsil 10 mg Every day Oral Jan 30, 2015 Discontinued Course Completed rosuvastatin calcium 10 mg oral tablet (3 sources) HMG-CoA Reductase Inhibitor Start: 05-03-2013 End: 08-19-2024 take 1 tablet by mouth once daily Rosuvastatin 10 MG tablet Discontinued 10 mg PO DAILY May 03, 2013 1:00am August 19, 2024 11:57pm warfarin sodium 3 mg oral tablet (14 sources) Vitamin K Antagonist Start: 11-24-2017 End: 10-23-2019 take 1 tablet by mouth once daily Warfarin (Jantoven) 3 MG Tablet Discontinued 3 MG PO Daily November 23, 2017 11:00pm October 23, 2019 2:26pm Start: 05-03-2013 End: 03-18-2024 take 1 tablet by mouth once daily Warfarin (Coumadin) 4 MG tablet Discontinued 4 mg PO DAILY May 03, 2013 1:00am March 18, 2024 12:55pm Problems Active Problems Problem Classification Problem Date Documented Date Episodic/Chronic Abdominal pain (4 sources) Abdominal pain; Translations: [Unspecified abdominal pain] 04-20-2022 Episodic Acute and unspecified renal failure (3 sources) Acute kidney failure, unspecified; Translations: [Acute renal failure syndrome] Onset: 07-02-2021 08-31-2024 Episodic Anxiety disorders (1 source) Generalized anxiety disorder; Translations: [GENERALIZED ANXIETY DISORDER] Onset: 07-02-2021 Chronic Chronic kidney disease (4 sources) Chronic kidney disease, stage 3 (moderate); Translations: [Chronic kidney disease stage 3] 08-31-2024 Chronic Chronic ulcer of skin (1 source) Pressure ulcer of left buttock, unstageable; Translations: [PRESSURE ULCER OF LEFT BUTTOCK, UNSTAGEABLE] Onset: 07-02-2021 Chronic Coagulation and hemorrhagic disorders (5 sources) Coagulation defect, unspecified; Translations: [Blood coagulation disorder] Onset: 01-04-2016 03-26-2022 Chronic Congestive heart failure; nonhypertensive (1 source) Heart failure, unspecified; Translations: [HEART FAILURE, UNSPECIFIED] Onset: 07-02-2021 Chronic Delirium, dementia, and amnestic and other cognitive disorders (5 sources) Dementia; Translations: [Unspecified dementia without behavioral disturbance] Onset: 07-02-2021 05-31-2022 Chronic Diabetes mellitus with complications (5 sources) Type 2 diabetes mellitus with diabetic neuropathy, unspecified; Translations: [Type 2 diabetes mellitus with other specified complication] Onset: 07-02-2021 Chronic Diabetes mellitus without complication (12 sources) Diabetes mellitus; Translations: [Type 2 diabetes mellitus without complications] Onset: 01-04-2016 08-25-2016 Chronic Disorders of lipid metabolism (7 sources) Hyperlipidemia, unspecified; Translations: [Hyperlipidemia] Onset: 01-04-2016 03-26-2022 Chronic E Codes: Fall (3 sources) Fall; Translations: [Unspecified fall, initial encounter] 06-17-2018 Episodic Essential hypertension (6 sources) Essential (primary) hypertension; Translations: [Benign hypertension] Onset: 01-04-2016 03-26-2022 Chronic Gout and other crystal arthropathies (5 sources) Gout; Translations: [Chronic gout, unspecified, without tophus (tophi)] Onset: 07-02-2021 08-25-2016 Chronic Infective arthritis and osteomyelitis (except that caused by tuberculosis or sexually transmitted disease) (2 sources) Other acute osteomyelitis, right ankle and foot; Translations: [Other osteomyelitis, ankle and foot] Onset: 07-02-2021 Chronic Mycoses (4 sources) Candiduria; Translations: [Other urogenital candidiasis] 04-22-2022 Episodic Nonspecific chest pain (11 sources) Chest pain; Translations: [Chest pain, unspecified] 01-29-2015 Episodic Nutritional deficiencies (1 source) Vitamin D deficiency, unspecified; Translations: [VITAMIN D DEFICIENCY, UNSPECIFIED] Onset: 07-02-2021 Chronic Open wounds of extremities (3 sources) Injury of foot; Translations: [Unspecified open wound, unspecified foot, initial encounter] Onset: 04-14-2024 03-26-2024 Episodic Other aftercare (2 sources) Long-term current use of anticoagulant; Translations: [custodial (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 of anticoagulants] 04-23-2022 Episodic Other injuries and conditions due to external causes (4 sources) Falling injury Onset: 08-25-2016 08-25-2016 Other lower respiratory disease (2 sources) Cough; Translations: [Cough] 03-26-2024 Episodic Other nervous system disorders (3 sources) Neuropathy; Translations: [Polyneuropathy, unspecified] 03-26-2022 Chronic Other nervous system disorders (1 source) Polyneuropathy, unspecified; Translations: [Mononeuritis of unspecified site] 04-23-2022 Chronic Other nervous system disorders (1 source) Disorder of brain; Translations: [Encephalopathy, unspecified] 05-31-2022 Chronic Other nervous system disorders (1 source) Encephalopathy, unspecified; Translations: [Encephalopathy, unspecified] 06-02-2022 Chronic Other nervous system disorders (4 sources) Metabolic encephalopathy; Translations: [Metabolic encephalopathy] 08-20-2024 Chronic Other nervous system disorders (1 source) Metabolic encephalopathy; Translations: [Metabolic encephalopathy] Onset: 08-23-2024 Chronic Other nutritional; endocrine; and metabolic disorders (4 sources) Morbid obesity; Translations: [Morbid (severe) obesity due to excess calories] 04-19-2022 Chronic Other nutritional; endocrine; and metabolic disorders (3 sources) Morbid (severe) obesity due to excess calories; Translations: [Morbid obesity] 04-23-2022 Chronic Other nutritional; endocrine; and metabolic disorders (1 source) Body mass index (BMI) 45.0-49.9, adult; Translations: [BODY MASS INDEX [BMI] 45.0-49.9, ADULT] Onset: 07-02-2021 Chronic Other nutritional; endocrine; and metabolic disorders (1 source) Obesity, unspecified; Translations: [OBESITY, UNSPECIFIED] Onset: 07-02-2021 Chronic Other screening for suspected conditions (not mental disorders or infectious disease) (3 sources) Deviation of international normalized ratio from target range; Translations: [Abnormal coagulation profile] 11-23-2019 Episodic Residual codes; unclassified (3 sources) At risk of hemorrhage; Translations: [Other specified personal risk factors, not elsewhere classified] 03-26-2022 Episodic Residual codes; unclassified (3 sources) Acute confusion; Translations: [Disorientation, unspecified] 04-19-2022 Episodic Residual codes; unclassified (3 sources) Disorientation, unspecified; Translations: [Delirium due to conditions classified elsewhere] 04-19-2022 Episodic Septicemia (except in labor) (6 sources) Septic shock; Translations: [Sepsis, unspecified organism] Onset: 08-23-2024 08-20-2024 Episodic Shock (1 source) Severe sepsis with septic shock; Translations: [Severe sepsis with septic shock] Onset: 08-23-2024 Episodic Skin and subcutaneous tissue infections (7 sources) Cellulitis of lower limb; Translations: [Cellulitis of left lower limb] Onset: 07-02-2021 11-23-2019 Episodic Spondylosis; intervertebral disc disorders; other back problems (2 sources) Postlaminectomy syndrome, not elsewhere classified; Translations: [Spondylosis without myelopathy or radiculopathy, cervical region] Onset: 08-29-2021 Chronic Spondylosis; intervertebral disc disorders; other back problems (6 sources) Cervical radiculopathy; Translations: [Radiculopathy, cervical region] 12-26-2017 Episodic Superficial injury; contusion (3 sources) Superficial injury of hand with infection; Translations: [Abrasion of left hand, initial encounter] 11-06-2022 Episodic Unclassified (4 sources) Onset: 04-25-2016 Unclassified (1 source) CONTACT WITH AND (SUSPECTED) EXPOSURE TO COVID-19; Translations: [CONTACT WITH AND (SUSPECTED) EXPOSURE TO COVID-19] Onset: 07-02-2021 Unclassified (1 source) Dr. Brand's office does not accept your insurance. Please contact your primary care doctor to get set up with a urologist in your network. Unclassified (1 source) No longer at this office, She is now with [employer] and will come to your house. If you have any issues with your scheduled time please contact them at [phone]. Urinary tract infections (15 sources) Acute urinary tract infection; Translations: [Urinary tract infection, site not specified] Onset: 06-06-2022 04-19-2022 Episodic Past or Other Problems Problem Classification Problem Date Documented Da te Episodic/Chronic Allergic reactions (1 source) Allergy status to analgesic agent status; Translations: [ALLERGY STATUS TO ANALGESIC AGENT] Onset: 07-02-2021 Episodic Deficiency and other anemia (1 source) Anemia, unspecified; Translations: [ANEMIA, UNSPECIFIED] Onset: 07-02-2021 Episodic Fluid and electrolyte disorders (1 source) Hypokalemia; Translations: [HYPOKALEMIA] Onset: 07-02-2021 Episodic Open wounds of head; neck; and trunk (1 source) Unspecified open wound of lower back and pelvis without penetration into retroperitoneum, initial encounter; Translations: [UNSP OPN WND LOW BACK AND PELV W/O PENET RETROPERI] Onset: 07-02-2021 Episodic Other aftercare (2 sources) 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; Translations: [Long-term (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 of anticoagulants] Onset: 07-02-2021 04-23-2022 Episodic Other aftercare (1 source) Other residential (current) drug therapy; Translations: [OTHER [facility] (CURRENT) DRUG THERAPY] Onset: 07-02-2021 Episodic Other bone disease and musculoskeletal deformities (1 source) Skeletal fluorosis, right ankle and foot; Translations: [SKELETAL FLUOROSIS, RIGHT ANKLE AND FOOT] Onset: 07-02-2021 Episodic Other connective tissue disease (2 sources) Pain in right leg; Translations: [PAIN IN RIGHT LEG] Onset: 07-02-2021 Episodic Other non-traumatic joint disorders (6 sources) Knee pain; Translations: [Pain in unspecified knee] Onset: 08-25-2016 08-25-2016 Episodic Phlebitis; thrombophlebitis and thromboembolism (3 sources) H/O: Deep vein thrombosis; Translations: [Personal history of other venous thrombosis and embolism] Onset: 07-02-2021 04-19-2022 Episodic Residual codes; unclassified (1 source) Acquired absence of other specified parts of digestive tract; Translations: [ACQUIRED ABSENCE OF OTHER SPECIFIED PARTS OF DIGES] Onset: 07-02-2021 Episodic Unclassified (3 sources) Periprosthetic fracture around internal prosthetic left knee joint 06-17-2018 Results Test Name Value Interpretation Reference Range Facility Culture, Blood (WB)on 2024 CUB Blood cultures x2, from two different sites No growth in 5 days. Normal [facility] Comment on above: Performed By: #### L 101.9900, L100.0100, L500.2500, L501.6710 #### [facility] [address] [place], [address] Basic Metabolic Profile (BMP )on 08-24-2024 BUN Normal 4-19 [facility] Comment on above: Result Comment: Canc elled via OM: Order cancelled - Patient discharged Performed By: #### L 100.0100, L500.2500 #### [facility] [address] [place], [address] BUN/CRE Normal 10-20 [facility] Comment on above: Result Comment: Canc elled via OM: Order cancelled - Patient discharged Performed By: #### L 100.0100, L500.2500 #### [facility] [address] [place], [address] Calcium Normal 7.6-11.0 [facility] Comment on above: Result Comment: Canc elled via OM: Order cancelled - Patient discharged Performed By: #### L 100.0100, L500.2500 #### [facility] [address] [place], [address] CL Normal 98-108 [facility] Comment on above: Result Comment: Canc elled via OM: Order cancelled - Patient discharged Performed By: #### L 100.0100, L500.2500 #### [facility] [address] [place], [address] CO2 Normal 21.0-32.0 [facility] Comment on above: Result Comment: Canc elled via OM: Order cancelled - Patient discharged Performed By: #### L 100.0100, L500.2500 #### [facility] [address] [place], [address] CREAT,SERUM Normal 0.70-1.20 [facility] Comment on above: Result Comment: Canc elled via OM: Order cancelled - Patient discharged Performed By: #### L 100.0100, L500.2500 #### [facility] [address] [place], [address] eGFR Normal >60 [facility] Comment on above: Result Comment: Canc elled via OM: Order cancelled - Patient discharged Performed By: #### L 100.0100, L500.2500 #### [facility] [address] [place], [address] GAP Normal 5-15 [facility] Comment on above: Result Comment: Canc elled via OM: Order cancelled - Patient discharged Performed By: #### L 100.0100, L500.2500 #### [facility] [address] [place], [address] GLU Normal 70-99 [facility] Comment on above: Result Comment: Canc elled via OM: Order cancelled - Patient discharged Performed By: #### L 100.0100, L500.2500 #### [facility] [address] [place], [address] Potassium Normal 3.3-5.1 [facility] Comment on above: Result Comment: Canc elled via OM: Order cancelled - Patient discharged Performed By: #### L 100.0100, L500.2500 #### [facility] [address] [place], [address] Basic Metabolic Profile (BMP) Normal 133-145 [facility] Comment on above: Result Comment: Canc elled via OM: Order cancelled - Patient discharged Performed By: #### L 100.0100, L500.2500 #### [facility] [address] [place], [address] CBC W/Diff, Automatedon 04-2 Absolute Neut Normal 2.0-7.7 [facility] Comment on above: Result Comment: Canc elled via OM: Order cancelled - Patient discharged Performed By: #### L 100.0100, L500.2500 #### [facility] [address] [place], [address] HCT Normal 40-54 [facility] Comment on above: Result Comment: Canc elled via OM: Order cancelled - Patient discharged Performed By: #### L 100.0100, L500.2500 #### [facility] [address] [place], [address] HGB Normal 13.0-16.5 [facility] Comment on above: Result Comment: Canc elled via OM: Order cancelled - Patient discharged Performed By: #### L 100.0100, L500.2500 #### [facility] [address] [place], [address] MCH Normal 27.0-32.0 [facility] Comment on above: Result Comment: Canc elled via OM: Order cancelled - Patient discharged Performed By: #### L 100.0100, L500.2500 #### [facility] [address] [place], [address] MCHC Normal 32-36 [facility] Comment on above: Result Comment: Canc elled via OM: Order cancelled - Patient discharged Performed By: #### L 100.0100, L500.2500 #### [facility] [address] [place], [address] MCV Normal 80-94 [facility] Comment on above: Result Comment: Canc elled via OM: Order cancelled - Patient discharged Performed By: #### L 100.0100, L500.2500 #### [facility] [address] [place], [address] NEUT% Normal 47-70 [facility] Comment on above: Result Comment: Canc elled via OM: Order cancelled - Patient discharged Performed By: #### L 100.0100, L500.2500 #### [facility] [address] [place], [address] PLT Normal 150-450 [facility] Comment on above: Result Comment: Canc elled via OM: Order cancelled - Patient discharged Performed By: #### L 100.0100, L500.2500 #### [facility] [address] [place], [address] RBC Normal 4.6-6.2 [facility] Comment on above: Result Comment: Canc elled via OM: Order cancelled - Patient discharged Performed By: #### L 100.0100, L500.2500 #### [facility] [address] [place], [address] RDW CV Normal 11.6-14.6 [facility] Comment on above: Result Comment: Canc elled via OM: Order cancelled - Patient discharged Performed By: #### L 100.0100, L500.2500 #### [facility] [address] [place], [address] RDW SD Normal 35.1-43.9 [facility] Comment on above: Result Comment: Canc elled via OM: Order cancelled - Patient discharged Performed By: #### L 100.0100, L500.2500 #### [facility] [address] [place], [address] WBC Normal 4.4-11.0 [facility] Comment on above: Result Comment: Canc elled via OM: Order cancelled - Patient discharged Performed By: #### L 100.0100, L500.2500 #### [facility] [address] [place], [address] Absolute lymphocyte countOrd ered By: Mao Muse on 08-23-2024 Lymphocytes Auto (Unsp spec) [#/Vol] 1.69 10*3/uL 0.83-4.51 [facility] Absolute neutrophil countOrd ered By: Mao Muse on 08-23-2024 Neutrophils (Bld) [#/Vol] 3.3 10*3/uL 2.0-7.7 [facility] Anion gap in Serum or Plasma Ordered By: Mao Muse on 08-23-2024 Anion gap [Moles/Vol] 10 mmol/L 5-15 [facility] Automated lymphocyte count a s percentage of total leukocytesOrdered By: Mao Muse on 08-23-2024 Lymphocytes/100 WBC Auto (Unsp spec) 28.5 % - [facility] BUN/creatinine ratioOrdered By: Maocooper uMse on 08-23-2024 Urea nitrogen/Creatinine [Mass ratio] 9.0 mg/mg Low 10- [facility] Basic Metabolic Profile (BMP )on 08-23-2024 BUN/CRE 9.0 RATIO Low 10- [facility] Comment on above: Performed By: #### L 101.9900, L100.0100, L500.2500, L501.6710 #### [facility] [address] [place], [address] Calcium [Mass/Vol] 8.6 mg/dL Normal 7.6-11.0 [facility] Comment on above: Performed By: #### L 101.9900, L100.0100, L500.2500, L501.6710 #### [facility] [address] [place], [address] Chloride [Moles/Vol] 105 mmol/L Normal 98-108 [facility] Comment on above: Performed By: #### L 101.9900, L100.0100, L500.2500, L501.6710 #### [facility] [address] [place], [address] CO2 [Moles/Vol] 21.6 mmol/L Normal 21.0-32.0 [facility] Comment on above: Performed By: #### L 101.9900, L100.0100, L500.2500, L501.6710 #### [facility] [address] [place], [address] Creatinine [Mass/Vol] 1.46 mg/dL High 0.70-1.20 [facility] Comment on above: Performed By: #### L 101.9900, L100.0100, L500.2500, L501.6710 #### [facility] [address] [place], [address] ECRCL 61.10 ml/min Normal 50-250 [facility] Comment on above: Performed By: #### L 101.9900, L100.0100, L500.2500, L501.6710 #### [facility] [address] [place], [address] GAP 10 Normal 5-15 [facility] Comment on above: Performed By: #### L 101.9900, L100.0100, L500.2500, L501.6710 #### [facility] [address] [place], [address] GFR/1.73 sq M.predicted among non-blacks MDRD (S/P/Bld) [Vol rate/Area] 50 mL/min/{1.73_m2} Low >60 [facility] Comment on above: Result Comment: mL/m in/1.73m2 CKD-EPI Creatinine Equation (2020) Performed By: #### L 101.9900, L100.0100, L500.2500, L501.6710 #### [facility] [address] [place], [address] Glucose [Mass/Vol] 159 mg/dL High 70-99 [facility] Comment on above: Performed By: #### L 101.9900, L100.0100, L500.2500, L501.6710 #### [facility] [address] [place], [address] Potassium [Moles/Vol] 4.0 mmol/L Normal 3.3-5.1 [facility] Comment on above: Performed By: #### L 101.9900, L100.0100, L500.2500, L501.6710 #### [facility] [address] [place], [address] Sodium [Moles/Vol] 136 mmol/L Normal 133-145 [facility] Comment on above: Performed By: #### L 101.9900, L100.0100, L500.2500, L501.6710 #### [facility] [address] [place], [address] Urea nitrogen [Mass/Vol] 13 mg/dL Normal 4-19 [facility] Comment on above: Performed By: #### L 101.9900, L100.0100, L500.2500, L501.6710 #### [facility] [address] [place], [address] Basophil percentageOrdered B y: Maorodrigo Muse on 08-23-2024 Basophils/100 WBC (Bld) 1.0 % 0-1 [facility] Bedside Glucoseon 08-23-2024 FINGERSTICK GLU 178 mg/dL High 74-106 [facility] Comment on above: Result Comment: NITZA GEMENT OF PATIENT CARE PER NURSING PROTOCOL Performed By: #### L 501.080 #### [facility] [address] [place], [address] FINGERSTICK GLU 148 mg/dL High 74-106 [facility] Comment on above: Result Comment: NITZA GEMENT OF PATIENT CARE PER NURSING PROTOCOL Performed By: #### L 501.080 #### [facility] [address] [place], [address] CBC W/Diff, Automatedon 08-03 Absolute Lymph 1.69 X10 3/uL Normal 0.83-4.51 [facility] Comment on above: Performed By: #### L 101.9900, L100.0100, L500.2500, L501.6710 #### [facility] [address] [place], [address] Absolute Neut 3.3 X10 3/uL Normal 2.0-7.7 [facility] Comment on above: Performed By: #### L 101.9900, L100.0100, L500.2500, L501.6710 #### [facility] [address] [place], [address] Basophils/100 WBC (Bld) 1.0 % Normal 0-1 [facility] Comment on above: Performed By: #### L 101.9900, L100.0100, L500.2500, L501.6710 #### [facility] [address] [place], [address] Eosinophils/100 WBC (Bld) 5.1 % High 0-5 [facility] Comment on above: Performed By: #### L 101.9900, L100.0100, L500.2500, L501.6710 #### [facility] [address] [place], [address] Erythrocyte distribution width (RBC) [Ratio] 14.8 % High 11.6-14.6 [facility] Comment on above: Performed By: #### L 101.9900, L100.0100, L500.2500, L501.6710 #### [facility] [address] [place], [address] Hematocrit (Bld) [Volume fraction] 35.5 % Low 40-54 [facility] Comment on above: Performed By: #### L 101.9900, L100.0100, L500.2500, L501.6710 #### [facility] [address] [place], [address] Hemoglobin (Bld) [Mass/Vol] 11.7 g/dL Low 13.0-16.5 [facility] Comment on above: Performed By: #### L 101.9900, L100.0100, L500.2500, L501.6710 #### [facility] [address] [place], [address] IG% 1.000 High 0.0-0.9 [facility] Comment on above: Result Comment: IG% - Immature Granulocytes (promyelocytes, myelocytes and metamyelocytes) > 1% indicates that a LEFT SHIFT is Present. Performed By: #### L 101.9900, L100.0100, L500.2500, L501.6710 #### [facility] [address] [place], [address] Lymphocytes/100 WBC (Bld) 28.5 % Normal 19-41 [facility] Comment on above: Performed By: #### L 101.9900, L100.0100, L500.2500, L501.6710 #### [facility] [address] [place], [address] MCH (RBC) [Entitic mass] 30.9 pg Normal 27.0-32.0 [facility] Comment on above: Performed By: #### L 101.9900, L100.0100, L500.2500, L501.6710 #### [facility] [address] [place], [address] MCHC (RBC) [Mass/Vol] 33.0 g/dL Normal 32-36 [facility] Comment on above: Performed By: #### L 101.9900, L100.0100, L500.2500, L501.6710 #### [facility] [address] [place], [address] MCV (RBC) [Entitic vol] 93.7 fL Normal 80-94 [facility] Comment on above: Performed By: #### L 101.9900, L100.0100, L500.2500, L501.6710 #### [facility] [address] [place], [address] Monocytes/100 WBC (Bld) 8.1 % Normal 0-10 [facility] Comment on above: Performed By: #### L 101.9900, L100.0100, L500.2500, L501.6710 #### [facility] [address] [place], [address] Neutrophils/100 WBC (Bld) 56.3 % Normal 47-70 [facility] Comment on above: Performed By: #### L 101.9900, L100.0100, L500.2500, L501.6710 #### [facility] [address] [place], [address] Nucleated RBC (Bld) [#/Vol] 0 10*3/uL Normal 0-5 [facility] Comment on above: Performed By: #### L 101.9900, L100.0100, L500.2500, L501.6710 #### [facility] [address] [place], [address] Platelet mean volume (Bld) [Entitic vol] 8.8 fL Normal 6.2-12.0 [facility] Comment on above: Performed By: #### L 101.9900, L100.0100, L500.2500, L501.6710 #### [facility] [address] [place], [address] Platelets (Bld) [#/Vol] 103 10*3/uL Low 150-450 [facility] Comment on above: Performed By: #### L 101.9900, L100.0100, L500.2500, L501.6710 #### [facility] [address] [place], [address] RBC (Bld) [#/Vol] 3.79 10*6/uL Low 4.6-6.2 [facility] Comment on above: Performed By: #### L 101.9900, L100.0100, L500.2500, L501.6710 #### [facility] [address] [place], [address] RDW SD 50.6 fl High 35.1-43.9 [facility] Comment on above: Performed By: #### L 101.9900, L100.0100, L500.2500, L501.6710 #### [facility] [address] [place], [address] WBC (Bld) [#/Vol] 5.9 10*3/uL Normal 4.4-11.0 [facility] Comment on above: Performed By: #### L 101.9900, L100.0100, L500.2500, L501.6710 #### [facility] [address] [place], [address] Carbon dioxide, total [Moles /volume] in Central venous bloodOrdered By: Mao Muse on 08-23-2024 CO2 [Moles/Vol] 21.6 mmol/L 21.0-32.0 [facility] Chloride assayOrdered By: Aarti Muse on 08-23-2024 Chloride [Moles/Vol] 105 mmol/L 98-108 [facility] Discharge Instructionon 08-03 Discharge Instruction [facility] Medical Records Department [address] [place] [address] Instructions for Home/Discharge Instructions 08/23/24 0847 MR#: [id number] Acct: [id number] Name: CHARLI PORRAS Rep #: [id number] : 1950 74 From: Mao Muse MD PCP: [facility] Status:ADM IN Discharge Instructions Diet Discharge Diet: Low fat / Low cholesterol, 1800 Calorie Control Diet and 8 Cup Fluid Restriction DC O2, CPAP, BIPAP needs Home O2 Discharge instructions: No Dressing / Incision Discharge Activity: Return to Normal Activity Weight Bearing Status: Weight bearing as tolerated Dressing / Incision Call your doctor if you observe: Fever of 101 or Higher, Coldness, Increased Pain, Numbness or Tingling, Change in Color, Inability to urinate, Inability to have a bowel movement, Shortness of breath, Dizziness, Fainting spells, Swelling in the ankles, Chest pain, Prolonged hiccupping, Increased palpitations (irregular heartbeat) and Calf discomfort Follow Up Care When: IN 2 WEEKS Test Results: Test results from this visit will be discussed in further detail at your follow-up appointment, if applicable. Discharge Plan Admission Admit Date/Time: 08/20/24 03:15 Primary Reason for Your Visit: Septic shock due to UTI Attending Provider: Mao Muse Primary Care Provider: ABHISHEK ST Consulting Providers: Saroj Gutierrez; Tello Borrego; Kerline Miranda Instructions Additional Instructions / Restrictions: Tizanidine and trazodone are his home medications. The dose and the frequency was wrongly written in the home medication that has been corrected. The order corrected with patient's . Discharge Orders/Prescriptions Prescriptions: New tizanidine 2 mg Tablet 4 mg PO QPM PRN (Reason: muscle spasms) Qty: 0 0RF trazodone 50 mg Tablet 50 mg PO QHS Qty: 0 0RF Rx Instructions: Home medication. trazodone 50 mg Tablet 50 mg PO DAILY@1700 Qty: 0 0RF Rx Instructions: Home medication. cefdinir 300 mg capsule 300 mg PO BID 4 Days Qty: 8 0RF Continued allopurinol 100 MG tablet 100 mg PO DAILYCM gabapentin 800 MG tablet 800 mg PO TIDCM Centrum Silver 1 EACH tablet 1 ea PO DAILY donepezil 10 mg tablet 10 mg PO QHS Trulicity 3 mg/0.5 mL pen injector 3 mg subcut QWEEK duloxetine 60 mg capsule,delayed release(DR/EC) 60 mg PO DAILY lisinopril 2.5 mg tablet 2.5 mg PO DAILY pramipexole 0.125 mg tablet 0.125 mg PO BID quetiapine 50 mg tablet 50 mg PO DAILY tramadol 50 mg tablet 50 mg PO 4X/DAY PRN PRN (Reason: pain) Xarelto 20 mg tablet 20 mg PO DAILY Rx Instructions: must administer with evening meal atorvastatin 10 mg tablet 10 mg PO QPM ezetimibe 10 mg tablet 10 mg PO DAILY glipizide 10 mg tablet extended release 24hr 10 mg PO DAILY Jardiance 25 mg tablet 25 mg PO DAILY levothyroxine 50 mcg tablet 50 mcg PO DAILY clonidine 0.2 mg/24 hr patch weekly 1 patch topical QWEEK Changed insulin glargine [Basaglar KwikPen U-100 Insulin] 100 unit/mL (3 mL) insulin pen 35 unit subcut QPM 30 Days Qty: 0 0RF Discontinued quetiapine 100 mg tablet 100 mg PO BID trazodone 50 mg tablet 100 mg PO BID tizanidine 4 mg tablet 4 mg PO QPM Referrals / Follow Up: Care Physician,No Primary [Non-Staff] - ABHISHEK ST CRNP [Primary Care Provider] - Radhames Brand MD [Med Staff - Active Staff] - Within 2 Weeks (BPH with recurrent UTI. Was admitted with septic shock.) Disposition Disposition (needs filled in before D/C Order can be placed): Home Health Service 08/23/24 1117 Mao Muse MD CC: MELY DUARTE; Dr. Saroj Gutierrez DO; Dr. Kerline Miranda MD; Dr. Tello Borrego MD Signed [facility] Eosinophil percentageOrdered By: Mao Muse on 08-23-2024 Eosinophils/100 WBC (Bld) 5.1 % High 0-5 [facility] Erythrocyte distribution wid th ratioOrdered By: Mao Muse on 08-23-2024 Erythrocyte distribution width (RBC) [Ratio] 14.8 % High 11.6-14.6 [facility] Erythrocyte distribution wid th standard deviationOrdered By: Mao Muse on 08-23-2024 Erythrocyte distribution width (RBC) [Ratio] 50.6 fl High 35.1-43.9 [facility] Glomerular filtration rate ( GFR) estimation/1.73 sq m using serum, plasma, or whole bOrdered By: Mao Muse on 08-23-2024 GFR/1.73 sq M.predicted among non-blacks MDRD (S/P/Bld) [Vol rate/Area] 50 mL/min/{1.73_m2} Low >60 [facility] Comment on above: mL/min/1.73m2 CKD-EP I Creatinine Equation (2020) Glucose measurement at bedsi deOrdered By: Mao Muse on 08-23-2024 Glucose [Mass/Vol] 178 mg/dL High 74-106 [facility] Comment on above: MANAGEMENT OF PATIEN T CARE PER NURSING PROTOCOL Hematocrit Auto (Bld) [Volum e fraction]Ordered By: Mao Muse on 08-23-2024 Hematocrit (Bld) [Volume fraction] 35.5 % Low 40-54 [facility] Hemoglobin measurementOrdere d By: Mao Muse on 08-23-2024 Hemoglobin (Bld) [Mass/Vol] 11.7 g/dL Low 13.0-16.5 [facility] Immature granulocytes/100 WB C Auto (Bld)Ordered By: Mao Muse on 08-23-2024 Immature granulocytes/100 WBC (Bld) 1.000 % High 0.0-0.9 [facility] Comment on above: IG% - Immature Granu locytes (promyelocytes, myelocytes and metamyelocytes) > 1% indicates that a LEFT SHIFT is Present. MCV (mean corpuscular volume ) determinationOrdered By: Mao Muse on 08-23-2024 MCV (RBC) [Entitic vol] 93.7 fL 80-94 [facility] Mean corpuscular hemoglobin (MCH) determinationOrdered By: Mao Muse on 08-23-2024 MCH (RBC) [Entitic mass] 30.9 pg 27.0-32.0 [facility] Mean corpuscular hemoglobin concentration (MCHC) determinationOrdered By: Mao Muse on 08-23-2024 MCHC (RBC) [Mass/Vol] 33.0 g/dL 32-36 [facility] Mean platelet volume determi nationOrdered By: Mao uMse on 08-23-2024 Platelet mean volume (Bld) [Entitic vol] 8.8 fL 6.2-12.0 [facility] Monocyte percentageOrdered B y: Mao Muse on 08-23-2024 Monocytes/100 WBC (Bld) 8.1 % 0-10 [facility] Neutrophil percentageOrdered By: Mao Muse on 08-23-2024 Neutrophils/100 WBC (Bld) 56.3 % 47-70 [facility] Nucleated red blood cell per centageOrdered By: Mao Muse on 08-23-2024 Nucleated RBC/100 WBC (Bld) [Ratio] 0 % 0-5 [facility] Platelet countOrdered By: Aarti Muse on 08-23-2024 Platelets (Bld) [#/Vol] 103 10*3/uL Low 150-450 [facility] Potassium measurement (mass/ volume)Ordered By: Mao Muse on 08-23-2024 Potassium (Unsp spec) [Mass/Vol] 4.0 mmol/L 3.3-5.1 [facility] Protein+Creatinine Ratio,Uri neon 08-23-2024 PROT:CRE RATIO 718 mg/g CRE High 0-200 [facility] Comment on above: Performed By: #### L 101.9900, L100.0100, L500.2500, L501.6710 #### [facility] [address] [place], [address] Protein (U) [Mass/Vol] 44.6 mg/dL High 0.0-12.0 [facility] Comment on above: Performed By: #### L 101.9900, L100.0100, L500.2500, L501.6710 #### [facility] [address] [place], [address] UR CREAT 62.10 mg/dL Normal 39.00-259.0 0 [facility] Comment on above: Performed By: #### L 101.9900, L100.0100, L500.2500, L501.6710 #### [facility] [address] [place], [address] RBC Auto (Bld) [#/Vol]Ordere d By: Mao Muse on 08-23-2024 RBC (Bld) [#/Vol] 3.79 10*6/uL Low 4.6-6.2 [facility] Serum creatinine measurement (mass/volume)Ordered By: Mao Muse on 08-23-2024 Creatinine [Mass/Vol] 1.46 mg/dL High 0.70-1.20 [facility] Serum glucose measurement (m ass/volume)Ordered By: Mao Muse on 08-23-2024 Glucose [Mass/Vol] 159 mg/dL High 70-99 [facility] Serum or plasma calcium maricel urement (mass/volume)Ordered By: Mao Muse on 08-23-2024 Calcium [Mass/Vol] 8.6 mg/dL 7.6-11.0 [facility] Serum or plasma urea nitroge n measurement (mass/volume)Ordered By: Mao uMse on 08-23-2024 Urea nitrogen [Mass/Vol] 13 mg/dL 4-19 [facility] Sodium levelOrdered By: Ericka Muse on 08-23-2024 Sodium [Moles/Vol] 136 mmol/L 133-145 [facility] Urine Cultureon 08-23-2024 URC Below infection je gutierrez. Urine Culture Further studies to follow. Yeast Like Organism [place] Count 1000-10,000 Mixed Gram Positive Organisms Mixed Gram Positive Organisms MIXC Mixed contaminants. Submit a new specimen if indicated. [facility] Comment on above: Performed By: #### L 501.080 #### [facility] [address] [place], [place], [id number] White blood cell (WBC) count Ordered By: Moa Muse on 08-23-2024 WBC (Bld) [#/Vol] 5.9 10*3/uL 4.4-11.0 [facility] Bedside Glucoseon 08-22-2024 FINGERSTICK GLU 206 mg/dL High 74-106 [facility] Comment on above: Result Comment: NITZA GEMENT OF PATIENT CARE PER NURSING PROTOCOL Performed By: #### L 501.080 #### [facility] [address] [place], [place], [id number] FINGERSTICK GLU 194 mg/dL High 74-106 [facility] Comment on above: Result Comment: NITZA GEMENT OF PATIENT CARE PER NURSING PROTOCOL Performed By: #### L 501.080 #### [facility] [address] [place], [address] FINGERSTICK GLU 178 mg/dL High 74-106 [facility] Comment on above: Result Comment: NITZA GEMENT OF PATIENT CARE PER NURSING PROTOCOL Performed By: #### L 501.080 #### [facility] [address] [place], [address] FINGERSTICK GLU 160 mg/dL High 74-106 [facility] Comment on above: Result Comment: NITZA GEMENT OF PATIENT CARE PER NURSING PROTOCOL Performed By: #### L 501.080 #### [facility] [address] [place], [address] Consultation - Infectious Dx on 08-22-2024 Consultation - Infectious Dx [facility] Medical Records Department [address] [place] [address] Consultation - Infectious Dx 08/22/24 1148 MR#: [id number] Acct: [id number] Name: CHARLI PORRAS Rep #: [id number] : 1950 74 From: Tello Borrego MD PCP: Care Physician,No Primary Status:ADM IN Location: [place] [address] Assessment Plan Assessment/Plan (1) Septic shock: PLAN: Suspect urinary source given recent uti, h/o BPH, and greater than 100 wbc seen on UA. Ucx pending. Overall feeling better, fever resolved, wbc normal. Cont cefepime while cxs pending. Will follow, thank you (2) Dementia: (3) Insulin dependent diabetes mellitus: HPI Consult Data Date of Consult: 08/22/24 HPI Narrative Reason for Consultation: sepsis HPI Narrative: CHARLI PORRAS, is a 74 M with h/o dementia, recurrent uti, BPH, DM, presented 08/20 to ED with sudden onset confusion at home. He does not remember much of what happened. Had been treated for uti about 2 weeks ago. Denies cough, SOB, headache, abd pain, dysuria, n/v/d. Admitted to icu with septic shock. Now out of icu, feeling better. Full ROS performed and neg except as noted above. [facility] Medical History Kidney disease Gout Dementia Diabetes HTN (hypertension) Home Medications ???Medication ???Instructions ???Recorded ???Last Taken ???Type allopurinol 100 mg tablet 100 mg PO DAILYCM 05/03/13 Unknown History gabapentin 800 mg tablet 800 mg PO TIDCM 05/03/13 Unknown H istory mthhopcg-hew-klkms acid 0.4 1 ea PO DAILY 05/03/13 Unknown His tory mg-lycopene 300 mcg-lutein 250 mcg tablet (Centrum Silver) atorvastatin 10 mg tablet 10 mg PO QPM 03/18/24 Unknown Hist ory donepezil 10 mg tablet 10 mg PO QHS 03/18/24 Unknown Hist ory dulaglutide 3 mg/0.5 mL 3 mg subcut QWEEK 03/18/24 Unknown History subcutaneous pen injector (Trulicity) duloxetine 60 mg capsule,delayed 60 mg PO DAILY 03/18/24 Unknown Hi story release empagliflozin 25 mg tablet 25 mg PO DAILY 03/18/24 Unknown Hi story (Jardiance) ezetimibe 10 mg tablet 10 mg PO DAILY 03/18/24 Unknown Hi story glipizide 10 mg tablet, extended 10 mg PO DAILY 03/18/24 Unknown Hi story release 24 hr insulin glargine 100 unit/mL (3 75 unit subcut QPM 03/18/24 Unknow n History mL) subcutaneous pen (Basaglar KwikPen U-100 Insulin) levothyroxine 50 mcg tablet 50 mcg PO DAILY 03/18/24 Unknown H istory lisinopril 2.5 mg tablet 2.5 mg PO DAILY 03/18/24 Unknown H istory pramipexole 0.125 mg tablet 0.125 mg PO BID 03/18/24 Unknown H istory quetiapine 100 mg tablet 100 mg PO BID 03/18/24 Unknown His tory quetiapine 50 mg tablet 50 mg PO DAILY 03/18/24 Unknown Hi story rivaroxaban 20 mg tablet (Xarelto) 20 mg PO DAILY 03/18/24 Unknown History tizanidine 4 mg tablet 4 mg PO QPM 03/18/24 Unknown Histo ry tramadol 50 mg tablet 50 mg PO 4X/DAY PRN PRN pain 03/18 Unknown History trazodone 50 mg tablet 100 mg PO BID 03/18/24 Unknown His tory clonidine 0.2 mg/24 hr weekly 1 patch topical QWEEK 08/19/24 Unk nown History transdermal patch Allergy/AdvReac Type Severity Reaction Status Date / Time ibuprofen AdvReac Abd Verified 08/19/24 23:53 cramps/diarrhea Surgical History History of left shoulder replacement H/O knee surgery Social History Smoking Status: Never smoker Physical Exam Const alert and no apparent distress General Appearance: cooperative HEENT normocephalic and head/scalp atraumatic Eyes PERRL and EOMs intact bilaterally Neck supple and No nodes Resp normal air movement and clear to auscultation bilaterally Cardio regular rate and regular rhythm GI soft to palpation, non-tender and non-distended Extremity General Extremity: edema Skin no rashes or lesions noted Neuro CN's II-XII intact bilaterally Lab / Micro Data Attestation: I reviewed the patient's lab results. 08/21/24 03:23 08/21/24 03:22 Labs: Laboratory Results - last 24 hr 08/21/24 16:26: POC Glucose 203 H 08/21/24 21:59: POC Glucose 254 H 08/22/24 06:07: POC Glucose 160 H Micro: Microbiology 08/20/24 00:27 Blood Culture (Wb) - Right Forearm Blood Culture - Preliminary No growth in 48 hours. 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 Nephrology consulted in view of elevated creatinine. Patient has known history of CKD (per patient's CKD secondary to diabetes) and had been following with nephrology in [place], [place]. Reviewing her recent serum creatinine trends: March 18, 2024 creatinine 1.87 mg/dL. Creatinine was 1.9 on admission and today creatinine 1.76. Potassium and bicarb acceptable. Patient has good urine output, so far 1.3 L today. Volume status appears near euvolemic. He is on room air. This is possibly baseline CKD. UA 800 protein, will check urine protein creatinine ratio. Renal ultrasound no hydro, mild bilateral renal cortical thinning. Blood pressures were low in the ER but have improved. Lisinopril is on hold. No acute indication for SNUFF BLENDER. Further orders forthcoming as hospitalization evolves, thank you for allowing us to participate in the care of Mr. Porras. HPI Consult Data Date of Consult: 08/22/24 HPI Narrative HPI Narrative: CHARLI PORRAS, is a 74 M with past medical history significant for diabetes mellitus type 2, BPH, dementia, recurrent UTI who was brought to the emergency room on August 20 for evaluation of worsening confusion with tremors and weakness. Blood pressure slightly low in ER. Patient was admitted for sepsis suspected secondary to UTI. Nephrology consulted in view of elevated creatinine. Per patient's who was at bedside, she states patient has been following with nephrology in [facility]. They have not established with nephrology once moved to [facility] as patient is essentially homebound. 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 Patient does not take NSAIDs. No recent nausea or vomiting, no diarrhea [facility] Medical History Kidney disease Gout Dementia Diabetes HTN (hypertension) Home Medications ???Medication ???Instructions ???Recorded ???Last Taken ???Type allopurinol 100 mg tablet 100 mg PO DAILYCM 05/03/13 Unknown History gabapentin 800 mg tablet 800 mg PO TIDCM 05/03/13 Unknown H istory zkymkykf-zit-yisyv acid 0.4 1 ea PO DAILY 05/03/13 Unknown His tory mg-lycopene 300 mcg-lutein 250 mcg tablet (Centrum Silver) atorvastatin 10 mg tablet 10 mg PO QPM 03/18/24 Unknown Hist ory donepezil 10 mg tablet 10 mg PO QHS 03/18/24 Unknown Hist ory dulaglutide 3 mg/0.5 mL 3 mg subcut QWEEK 03/18/24 Unknown History subcutaneous pen injector (Trulicity) duloxetine 60 mg capsule,delayed 60 mg PO DAILY 03/18/24 Unknown Hi story release empagliflozin 25 mg tablet 25 mg PO DAILY 03/18/24 Unknown Hi story (Jardiance) ezetimibe 10 mg tablet 10 mg PO DAILY 03/18/24 Unknown Hi story glipizide 10 mg tablet, extended 10 mg PO DAILY 03/18/24 Unknown Hi story release 24 hr insulin glargine 100 unit/mL (3 75 unit subcut QPM 03/18/24 Unknow n History mL) subcutaneous pen (Basaglar KwikPen U-100 Insulin) levothyroxine 50 mcg tablet 50 mcg PO DAILY 03/18/24 Unknown H istory lisinopril 2.5 mg tablet 2.5 mg PO DAILY 03/18/24 Unknown H istory pramipexole 0.125 mg tablet 0.125 mg PO BID 03/18/24 Unknown H istory quetiapine 100 mg tablet 100 mg PO BID 03/18/24 Unknown His tory quetiapine 50 mg tablet 50 mg PO DAILY 03/18/24 Unknown Hi story rivaroxaban 20 mg tablet (Xarelto) 20 mg PO DAILY 03/18/24 Unknown History tizanidine 4 mg tablet 4 mg PO QPM 03/18/24 Unknown Histo ry tramadol 50 mg tablet 50 mg PO 4X/DAY PRN PRN pain 03/18 Unknown History trazodone 50 mg tablet 100 mg PO BID 03/18/24 Unknown His tory clonidine 0.2 mg/24 hr weekly 1 patch topical QWEEK 08/19/24 Unk nown History transdermal patch Allergy/AdvReac Type Severity Reaction Status Date / Time ibuprofen AdvReac Abd Verified 08/19/24 23:53 cramps/diarrhea Surgical History History of left shoulder replacement H/O knee surgery Social History Smoking Status: Never smoker ROS ROS Narrative as in HPI Physical Exam Narrative Alert to name, no apparen (more content not included)... [facility] Random urine creatinine maricel urement (mass/volume)Ordered By: Cassy Stevenson on 08-22-2024 Creatinine Unsp time (U) [Mass/Vol] 62.10 mg/dL 39.00-259.0 0 [facility] Urine protein measurement (m ass/volume)Ordered By: Cassy Stevenson on 08-22-2024 Protein (U) [Mass/Vol] 44.6 mg/dL High 0.0-12.0 [facility] Urine protein/creatinine mas s ratioOrdered By: Cassy Stevenson on 08-22-2024 Protein/Creatinine (U) [Mass ratio] 718 mg/g CRE High 0-200 [facility] Basic Metabolic Profile (BMP )on 08-21-2024 BUN/CRE 10.9 RATIO Normal 10-20 [facility] Comment on above: Performed By: #### L 501.080 #### [facility] [address] [place], [address] Calcium [Mass/Vol] 8.0 mg/dL Normal 7.6-11.0 [facility] Comment on above: Performed By: #### L 501.080 #### [facility] [address] [place], [address] Chloride [Moles/Vol] 107 mmol/L Normal 98-108 [facility] Comment on above: Performed By: #### L 501.080 #### [facility] [address] [place], [address] CO2 [Moles/Vol] 20.3 mmol/L Low 21.0-32.0 [facility] Comment on above: Performed By: #### L 501.080 #### [facility] [address] [place], [address] Creatinine [Mass/Vol] 1.76 mg/dL High 0.70-1.20 [facility] Comment on above: Performed By: #### L 501.080 #### [facility] [address] [place], [address] ECRCL 50.20 ml/min Normal 50-250 [facility] Comment on above: Performed By: #### L 501.080 #### [facility] [address] [place], [address] GAP 10 Normal 5-15 [facility] Comment on above: Performed By: #### L 501.080 #### [facility] [address] [place], [address] GFR/1.73 sq M.predicted among non-blacks MDRD (S/P/Bld) [Vol rate/Area] 40 mL/min/{1.73_m2} Low >60 [facility] Comment on above: Result Comment: mL/m in/1.73m2 CKD-EPI Creatinine Equation (2020) Performed By: #### L 501.080 #### [facility] [address] [place], [address] Glucose [Mass/Vol] 144 mg/dL High 70-99 [facility] Comment on above: Performed By: #### L 501.080 #### [facility] [address] [place], [address] Potassium [Moles/Vol] 4.2 mmol/L Normal 3.3-5.1 [facility] Comment on above: Performed By: #### L 501.080 #### [facility] [address] [place], [address] Sodium [Moles/Vol] 137 mmol/L Normal 133-145 [facility] Comment on above: Performed By: #### L 501.080 #### [facility] [address] [place], [address] Urea nitrogen [Mass/Vol] 19 mg/dL Normal 4-19 [facility] Comment on above: Performed By: #### L 501.080 #### [facility] [address] [place], [address] Bedside Glucoseon 08-21-2024 FINGERSTICK GLU 254 mg/dL High 74-106 [facility] Comment on above: Result Comment: NITZA GEMENT OF PATIENT CARE PER NURSING PROTOCOL Performed By: #### L 501.080 #### [facility] [address] [place], [address] FINGERSTICK GLU 203 mg/dL High 74-106 [facility] Comment on above: Result Comment: NITZA GEMENT OF PATIENT CARE PER NURSING PROTOCOL Performed By: #### L 501.080 #### [facility] [address] [place], [address] FINGERSTICK GLU 162 mg/dL High 74-106 [facility] Comment on above: Result Comment: NITZA GEMENT OF PATIENT CARE PER NURSING PROTOCOL Performed By: #### L 101.9900, L100.0100, L500.2500, L501.6710 #### [facility] [address] [place], [address] CBC-Complete Blood Cnt No Di ffon 08-21-2024 Erythrocyte distribution width (RBC) [Ratio] 15.0 % High 11.6-14.6 [facility] Comment on above: Performed By: #### L 501.080 #### [facility] [address] [place], [address] Hematocrit (Bld) [Volume fraction] 31.6 % Low 40-54 [facility] Comment on above: Performed By: #### L 501.080 #### [facility] [address] [place], [address] Hemoglobin (Bld) [Mass/Vol] 10.7 g/dL Low 13.0-16.5 [facility] Comment on above: Performed By: #### L 501.080 #### [facility] [address] [place], [address] MCH (RBC) [Entitic mass] 31.0 pg Normal 27.0-32.0 [facility] Comment on above: Performed By: #### L 501.080 #### [facility] [address] [place], [address] MCHC (RBC) [Mass/Vol] 33.9 g/dL Normal 32-36 [facility] Comment on above: Performed By: #### L 501.080 #### [facility] [address] [place], [address] MCV (RBC) [Entitic vol] 91.6 fL Normal 80-94 [facility] Comment on above: Performed By: #### L 501.080 #### [facility] [address] [place], [address] Platelet mean volume (Bld) [Entitic vol] 8.7 fL Normal 6.2-12.0 [facility] Comment on above: Performed By: #### L 501.080 #### [facility] [address] [place], [address] Platelets (Bld) [#/Vol] 103 10*3/uL Low 150-450 [facility] Comment on above: Performed By: #### L 501.080 #### [facility] [address] [place], [address] RBC (Bld) [#/Vol] 3.45 10*6/uL Low 4.6-6.2 [facility] Comment on above: Performed By: #### L 501.080 #### [facility] [address] [place], [place], [address] RDW SD 50.4 fl High 35.1-43.9 [facility] Comment on above: Performed By: #### L 501.080 #### [facility] [address] [place], [address] WBC (Bld) [#/Vol] 5.9 10*3/uL Normal 4.4-11.0 [facility] Comment on above: Performed By: #### L 501.080 #### [facility] [address] [place], [address] 12 Lead EKGon 08-20-2024 12 Lead EKG [facility] Services [address] [place] [address] 12 Lead EKG 08/20/24 0447 MR#: [id number] Acct: [id number] Name: CHARLI PORRAS Rep #: [id number] : 1950 74 From: Cliff Robledo MD Attending Dr: Dr. Mao Muse MD Status: ADM IN Ordering Dr: Mao Muse MD Date: 08/20/24 Location: [facility] Sex: M C Admitted: 08/20/24 Test Reason : BRADYCARDIA Blood Pressure : */* mmHG Vent. Rate : 73 BPM Atrial Rate : 44 BPM P-R Int : * ms QRS Dur : 144 ms QT Int : 478 ms P-R-T Axes : * 2 110 degrees QTcB Int : 526 ms Normal sinus rhythm Left bundle branch block Abnormal ECG Confirmed by CLIFF ROBLEDO MD ([id number]), rewrite editor LIZETH HAMMONDS ([id number]) on 08/22/2024 9:07:07 AM Referred By: INOCENCIA Confirmed By: CLIFF ROBLEDO MD 08/22/24 0907 Date Cliff Robledo MD CC: Dr. Mao Muse MD; No Primary Care Physician Signed Normal [facility] Amorphous sediment detection in urine sediment by light microscopyOrdered By: Kaushik Brown on 08-20-2024 Amorphous sediment LM Ql (Urine sed) 1+ [facility] Basic Metabolic Profile (BMP )on 08-20-2024 BUN/CRE 10.5 RATIO Normal 10-20 [facility] Comment on above: Performed By: #### L 500.2500 #### [facility] [address] [place], [address] Calcium [Mass/Vol] 7.7 mg/dL Normal 7.6-11.0 [facility] Comment on above: Performed By: #### L 500.2500 #### [facility] [address] [place], [address] Chloride [Moles/Vol] 105 mmol/L Normal 98-108 [facility] Comment on above: Performed By: #### L 500.2500 #### [facility] [address] [place], [address] CO2 [Moles/Vol] 21.3 mmol/L Normal 21.0-32.0 [facility] Comment on above: Performed By: #### L 500.2500 #### [facility] [address] [place], [address] Creatinine [Mass/Vol] 1.89 mg/dL High 0.70-1.20 [facility] Comment on above: Performed By: #### L 500.2500 #### [facility] [address] [place], [address] ECRCL 46.74 ml/min Low 50-250 [facility] Comment on above: Performed By: #### L 500.2500 #### [facility] [address] [place], [address] GAP 9 Normal 5-15 [facility] Comment on above: Performed By: #### L 500.2500 #### [facility] [address] [place], [address] GFR/1.73 sq M.predicted among non-blacks MDRD (S/P/Bld) [Vol rate/Area] 37 mL/min/{1.73_m2} Low >60 [facility] Comment on above: Result Comment: mL/m in/1.73m2 CKD-EPI Creatinine Equation (2020) Performed By: #### L 500.2500 #### [facility] [address] [place], [address] Glucose [Mass/Vol] 212 mg/dL High 70-99 [facility] Comment on above: Performed By: #### L 500.2500 #### [facility] [address] [place], [address] Potassium [Moles/Vol] 4.6 mmol/L Normal 3.3-5.1 [facility] Comment on above: Performed By: #### L 500.2500 #### [facility] [address] [place], [address] Sodium [Moles/Vol] 135 mmol/L Normal 133-145 [facility] Comment on above: Performed By: #### L 500.2500 #### [facility] [address] [place], [address] Urea nitrogen [Mass/Vol] 20 mg/dL High -19 [facility] Comment on above: Performed By: #### L 500.2500 #### [facility] [address] [place], [address] Bedside Glucoseon 08-20-2024 FINGERSTICK GLU 203 mg/dL High 74-106 [facility] Comment on above: Result Comment: NITZA FAUSTOENT OF PATIENT CARE PER NURSING PROTOCOL Performed By: #### L 501.080 #### [facility] [address] [place], [address] FINGERSTICK GLU 165 mg/dL High 74-106 [facility] Comment on above: Result Comment: NITZA GEMENT OF PATIENT CARE PER NURSING PROTOCOL Performed By: #### L 101.9900, L100.0100, L500.2500, L501.6710 #### [facility] [address] [place], [address] FINGERSTICK GLU 181 mg/dL High 74-106 [facility] Comment on above: Result Comment: NITZA GEMENT OF PATIENT CARE PER NURSING PROTOCOL Performed By: #### L 501.080 #### [facility] [address] [place], [address] FINGERSTICK GLU 214 mg/dL High 74-106 [facility] Comment on above: Result Comment: NITZA GEMENT OF PATIENT CARE PER NURSING PROTOCOL Performed By: #### L 501.080 #### [facility] [address] [place], [address] Bilirubin Test strip Ql (U)O rdered By: Kaushik Brown on 08-20-2024 Bilirubin Ql (U) Negative Negative [facility] Blood cultureOrdered By: Juliano Brown on 08-20-2024 Bacteria identified Cx Nom (Bld) No growth in 5 days. [facility] CBC W/Diff, Automatedon 04- Absolute Lymph 0.55 X10 3/uL Low 0.83-4.51 [facility] Comment on above: Performed By: #### L 501.080 #### [facility] [address] [place], [address] Absolute Neut 7.6 X10 3/uL Normal 2.0-7.7 [facility] Comment on above: Performed By: #### L 501.080 #### [facility] [address] [place], [address] Basophils/100 WBC (Bld) 0.5 % Normal 0-1 [facility] Comment on above: Performed By: #### L 501.080 #### [facility] [address] [place], [address] Eosinophils/100 WBC (Bld) 0.1 % Normal 0-5 [facility] Comment on above: Performed By: #### L 501.080 #### [facility] [address] [place], [address] Erythrocyte distribution width (RBC) [Ratio] 14.6 % Normal 11.6-14.6 [facility] Comment on above: Performed By: #### L 501.080 #### [facility] [address] [place], [address] Hematocrit (Bld) [Volume fraction] 37.4 % Low 40-54 [facility] Comment on above: Performed By: #### L 501.080 #### [facility] [address] [place], [address] Hemoglobin (Bld) [Mass/Vol] 12.7 g/dL Low 13.0-16.5 [facility] Comment on above: Performed By: #### L 501.080 #### [facility] [address] [place], [address] IG% 1.000 High 0.0-0.9 [facility] Comment on above: Result Comment: IG% - Immature Granulocytes (promyelocytes, myelocytes and metamyelocytes) > 1% indicates that a LEFT SHIFT is Present. Performed By: #### L 501.080 #### [facility] [address] [place], [address] Lymphocytes/100 WBC (Bld) 6.3 % Low 19-41 [facility] Comment on above: Performed By: #### L 501.080 #### [facility] [address] [place], [address] MCH (RBC) [Entitic mass] 31.1 pg Normal 27.0-32.0 [facility] Comment on above: Performed By: #### L 501.080 #### [facility] [address] [place], [address] MCHC (RBC) [Mass/Vol] 34.0 g/dL Normal 32-36 [facility] Comment on above: Performed By: #### L 501.080 #### [facility] [address] [place], [address] MCV (RBC) [Entitic vol] 91.7 fL Normal 80-94 [facility] Comment on above: Performed By: #### L 501.080 #### [facility] [address] [place], [address] Monocytes/100 WBC (Bld) 4.9 % Normal 0-10 [facility] Comment on above: Performed By: #### L 501.080 #### [facility] [address] [place], [address] Neutrophils/100 WBC (Bld) 87.2 % High 47-70 [facility] Comment on above: Performed By: #### L 501.080 #### [facility] [address] [place], [address] Nucleated RBC (Bld) [#/Vol] 0 10*3/uL Normal 0-5 [facility] Comment on above: Performed By: #### L 501.080 #### [facility] [address] [place], [address] Platelet mean volume (Bld) [Entitic vol] 9.3 fL Normal 6.2-12.0 [facility] Comment on above: Performed By: #### L 501.080 #### [facility] [address] [place], [address] Platelets (Bld) [#/Vol] 126 10*3/uL Low 150-450 [facility] Comment on above: Performed By: #### L 501.080 #### [facility] [address] [place], [address] RBC (Bld) [#/Vol] 4.08 10*6/uL Low 4.6-6.2 [facility] Comment on above: Performed By: #### L 501.080 #### [facility] [address] [place], [address] RDW SD 48.7 fl High 35.1-43.9 [facility] Comment on above: Performed By: #### L 501.080 #### [facility] [address] [place] [place], [address] WBC (Bld) [#/Vol] 8.7 10*3/uL Normal 4.4-11.0 [facility] Comment on above: Performed By: #### L 501.080 #### [facility] [address] [place] [place], [address] CTA Chest W/WO Contraston CTA Chest W/WO Contrast [facility] Imaging Services [address] [place] [address] CTA Chest W/WO Contrast MR#: [id number] Acct: [id number] Name: WARDELLIOTTLARRYThaliaCHARLI Rep #: [id number] : 1950 M 74 From: Tello Garcia MD PCP: Care Physician,No Primary Status: REG ER Study: CTA Chest W/WO Contrast Date of Exam: 08/20/24 Exam# [id number] Ordering Dr: Kaushik Brown DO PROCEDURE: CTA CHEST W/WO CONTRAST 08/20/2024 REASON FOR EXAM: HYPOXIA TECHNIQUE: CTA imaging of the chest with intravenous contrast. Coronal and Sagittal reconstruction series were provided. Maximum intensity projection (MIPs) Volume rendering and CONTRAST: 100 cc Isovue 370 IV One or more dose reduction techniques were used (e.g., Automated exposure control, adjustment of the mA and/or kV according to patient size, use of iterative reconstruction technique). RADIATION DOSE SUMMARY: CTDlvol: 47.49 mGy DLP: 557.96 mGycm COMPARISON: None available FINDINGS: Appearance of possible inferior vena cava filter suggested on the tree scout views. Motion artifact significantly limits the evaluation. No large central or hilar saddle pulmonary embolism. Interlobar to subsegmental branches are not well evaluated. Thoracic aorta appears within limits. Three-vessel coronary calcification appears moderate. No pericardial or pleural effusion. Images of the upper abdomen appear unremarkable. [place] artifact from left shoulder replacement and anterior cervical disc fusion. The central airways appear patent. Motion artifact and low appearing lung volumes. Bibasilar and dependent atelectasis. No focal consolidation. CT/CTA Chest W/WO Contrast IMPRESSION: Motion artifact significantly limits the evaluation. No large central or hilar saddle pulmonary embolism. Interlobar to subsegmental branches are not well evaluated. The central airways appear patent. Motion artifact and low appearing lung volumes. Bibasilar and dependent atelectasis. No focal consolidation. Three-vessel coronary calcification appears moderate. Reading Location: [facility] CC: Kaushik Brown DO; No Primary Care Physician Point Of Care Specialist: Signed Normal [facility] Comprehensive Metabolic Prof coon 08-20-2024 Albumin [Mass/Vol] 3.6 g/dL Normal 3.4-4.8 [facility] Comment on above: Performed By: #### L 101.9900, L100.0100, L500.2500, L501.6710 #### [facility] [address] [place], [address] Albumin/Globulin [Mass ratio] 1.1 {ratio} Normal 0.9-2.4 [facility] Comment on above: Performed By: #### L 101.9900, L100.0100, L500.2500, L501.6710 #### [facility] [address] [place], [address] ALK PHOS 78 U/L Normal 40-129 [facility] Comment on above: Performed By: #### L 101.9900, L100.0100, L500.2500, L501.6710 #### [facility] [address] [place], [address] ALT [Catalytic activity/Vol] 24 U/L Normal <=46 [facility] Comment on above: Performed By: #### L 101.9900, L100.0100, L500.2500, L501.6710 #### [facility] [address] [place], [address] AST [Catalytic activity/Vol] 29 U/L Normal <=37 [facility] Comment on above: Performed By: #### L 101.9900, L100.0100, L500.2500, L501.6710 #### [facility] [address] [place], [address] Bilirubin [Mass/Vol] 0.76 mg/dL Normal 0.00-1.30 [facility] Comment on above: Performed By: #### L 101.9900, L100.0100, L500.2500, L501.6710 #### [facility] [address] [place], [address] BUN/CRE 9.2 RATIO Low 10-20 [facility] Comment on above: Performed By: #### L 101.9900, L100.0100, L500.2500, L501.6710 #### [facility] [address] [place], [address] Calcium [Mass/Vol] 8.8 mg/dL Normal 7.6-11.0 [facility] Comment on above: Performed By: #### L 101.9900, L100.0100, L500.2500, L501.6710 #### [facility] [address] [place], [address] Chloride [Moles/Vol] 100 mmol/L Normal 98-108 [facility] Comment on above: Performed By: #### L 101.9900, L100.0100, L500.2500, L501.6710 #### [facility] [address] [place], [address] CO2 [Moles/Vol] 19.8 mmol/L Low 21.0-32.0 [facility] Comment on above: Performed By: #### L 101.9900, L100.0100, L500.2500, L501.6710 #### [facility] [address] [place], [address] Creatinine [Mass/Vol] 1.90 mg/dL High 0.70-1.20 [facility] Comment on above: Performed By: #### L 101.9900, L100.0100, L500.2500, L501.6710 #### [facility] [address] [place], [address] ECRCL 45.50 ml/min Low 50-250 [facility] Comment on above: Performed By: #### L 101.9900, L100.0100, L500.2500, L501.6710 #### [facility] [address] [place], [address] GAP 14 Normal 5-15 [facility] Comment on above: Performed By: #### L 101.9900, L100.0100, L500.2500, L501.6710 #### [facility] [address] [place], [address] GFR/1.73 sq M.predicted among non-blacks MDRD (S/P/Bld) [Vol rate/Area] 36 mL/min/{1.73_m2} Low >60 [facility] Comment on above: Result Comment: mL/m in/1.73m2 CKD-EPI Creatinine Equation (2020) Performed By: #### L 101.9900, L100.0100, L500.2500, L501.6710 #### [facility] [address] [place], [address] Globulin (S) [Mass/Vol] 3.4 g/dL Normal 2.2-4.2 [facility] Comment on above: Performed By: #### L 101.9900, L100.0100, L500.2500, L501.6710 #### [facility] [address] [place], [address] Glucose [Mass/Vol] 245 mg/dL High 70-99 [facility] Comment on above: Performed By: #### L 101.9900, L100.0100, L500.2500, L501.6710 #### [facility] [address] [place], [address] Potassium [Moles/Vol] 5.3 mmol/L High 3.3-5.1 [facility] Comment on above: Performed By: #### L 101.9900, L100.0100, L500.2500, L501.6710 #### [facility] [address] [place], [address] Sodium [Moles/Vol] 133 mmol/L Normal 133-145 [facility] Comment on above: Performed By: #### L 101.9900, L100.0100, L500.2500, L501.6710 #### [facility] [address] [place], [address] T PROT 7.0 g/dL Normal 5.9-8.4 [facility] Comment on above: Performed By: #### L 101.9900, L100.0100, L500.2500, L501.6710 #### [facility] [address] [place], [address] Urea nitrogen [Mass/Vol] 17 mg/dL Normal 4-19 [facility] Comment on above: Performed By: #### L 101.9900, L100.0100, L500.2500, L501.6710 #### [facility] [address] [place], [address] Consultation - Intensiviston 08-20-2024 Consultation - Senior Instructor [facility] Medical Records Department [address] [place] [address] Consultation - Senior Instructor 08/20/24 0854 MR#: [id number] Acct: [id number] Name: CHARLI PORRAS Rep #: [id number] : 1950 74 From: Kaushik Sykes MD PCP: Care Physician,No Primary Status:ADM IN Location: ICU ICU01-1 HPI Consult Data Date of Consult: 08/20/24 HPI Narrative Reason for Consultation: Sepsis and shock on pressors HPI Narrative: CHARLI PORRAS, is a 74yo who presents with acute on chronic alteration in mentation, phsyical weakness/frailty. Per bedside nursing, patient recently was diagnosed with UTI and was prescribed oral Abx, but did not initiate treatment. Cared for by at home, and unclear reason for the nonadherence to medical therapy, but may be related to baseline level of moderate to severe dementia. On presentation, patient very febrile and confirms pain on urination. UA in ED showing UTI. Marx placed and patient was given 3L IVF resuscitation. Due to persistent hypotension, started on pressors and admitted to ICU. 08/20 - patient easily rousable and responding well to questions. Had difficulty lying flat for renal U/S but otherwise doing well. Small blood at tip of penis around Marx. Received Zosyn in ED. UA pH 6.0. Renal U/S showing renal stone in R, but no hydro. [facility] Medical History Kidney disease Gout Dementia Diabetes HTN (hypertension) Home Medications ???Medication ???Instructions ???Recorded ???Last Taken ???Type allopurinol 100 mg tablet 100 mg PO DAILYCM 05/03/13 Unknown History gabapentin 800 mg tablet 800 mg PO TIDCM 05/03/13 Unknown H istory wqocuone-ppt-omuox acid 0.4 1 ea PO DAILY 05/03/13 Unknown His tory mg-lycopene 300 mcg-lutein 250 mcg tablet (Centrum Silver) atorvastatin 10 mg tablet 10 mg PO QPM 03/18/24 Unknown Hist ory donepezil 10 mg tablet 10 mg PO QHS 03/18/24 Unknown Hist ory dulaglutide 3 mg/0.5 mL 3 mg subcut QWEEK 03/18/24 Unknown History subcutaneous pen injector (Trulicity) duloxetine 60 mg capsule,delayed 60 mg PO DAILY 03/18/24 Unknown Hi story release empagliflozin 25 mg tablet 25 mg PO DAILY 03/18/24 Unknown Hi story (Jardiance) ezetimibe 10 mg tablet 10 mg PO DAILY 03/18/24 Unknown Hi story glipizide 10 mg tablet, extended 10 mg PO DAILY 03/18/24 Unknown Hi story release 24 hr insulin glargine 100 unit/mL (3 75 unit subcut QPM 03/18/24 Unknow n History mL) subcutaneous pen (Basaglar KwikPen U-100 Insulin) levothyroxine 50 mcg tablet 50 mcg PO DAILY 03/18/24 Unknown H istory lisinopril 2.5 mg tablet 2.5 mg PO DAILY 03/18/24 Unknown H istory pramipexole 0.125 mg tablet 0.125 mg PO BID 03/18/24 Unknown H istory quetiapine 100 mg tablet 100 mg PO BID 03/18/24 Unknown His tory quetiapine 50 mg tablet 50 mg PO DAILY 03/18/24 Unknown Hi story rivaroxaban 20 mg tablet (Xarelto) 20 mg PO DAILY 03/18/24 Unknown History tizanidine 4 mg tablet 4 mg PO QPM 03/18/24 Unknown Histo ry tramadol 50 mg tablet 50 mg PO 4X/DAY PRN PRN pain 03/18 Unknown History trazodone 50 mg tablet 100 mg PO BID 03/18/24 Unknown His tory clonidine 0.2 mg/24 hr weekly 1 patch topical QWEEK 08/19/24 Unk nown History transdermal patch Allergy/AdvReac Type Severity Reaction Status Date / Time ibuprofen AdvReac Abd Verified 08/19/24 23:53 cramps/diarrhea Surgical History History of left shoulder replacement H/O knee surgery Social History Smoking Status: Never smoker ROS Constitutional Constitutional: Reports chills Eyes Eyes: Denies blurry vision, change in vision or loss of vision ENT HEENT: Denies dizziness, dysphagia, epistaxis, headache(s), hoarseness, loss taste/smell, nasal congestion, nasal discharge or sore throat Cardiovascular Cardiovascular: Denies chest pain, claudication, dizziness, dyspnea, edema, irregular heart rhythm or lightheadedness Respiratory/Chest Respiratory/Chest: Denies chest tightness, cough, dyspnea, hemoptysis, non-rest sleep EDS, pain on inspiration, shortness of breath with exertion, snoring, wheezing or witnessed apneas Gastrointestinal Gastrointestinal: Denies abdominal pain, diarrhea, dyspepsia, dysphagia, heartburn, hematochezia, melena, nausea or vomiting Genitourinary Genitourinary: Reports dysuria Musculoskeletal Musculoskeletal: Denies arthralgias, back pain or joint pain Integumentary Integumentary: Denies lesions, rash, skin ulcer or wounds Neurologic Neurologic: Denies abnormal gait, abnormal speech, confusion, focal weakness, loss of vision, seizure-like activity or syncope Psychiatric Psychiatric: Denie (more content not included)... [facility] Emergency Department Summary on 08-20-2024 Emergency Department Summary [facility] Medical Records Department [address] [place] [address] Emergency Department Summary 08/20/24 MR#: [id number] Acct: [id number] Name: CHARLI PORRAS Rep #: [id number] : 1950 74 From: Kaushik Brown DO PCP: Care Physician,No Primary Status:ADM IN Location: ICU ICU01-1 HPI History of Present Illness Chief Complaint: Alt LOC Informant: patient and family Narrative Narrative: Patient is a 74-year-old male with past medical history of hypertension insulin-dependent diabetes and dementia. 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 Family states that he is typically pleasantly confused but will hold conversations and then just simply repeat himself. They also report that he has difficulty standing on his own but can typically hold himself up with help. However beginning this afternoon he had increased lethargy and the inability to even hold himself up as he normally can when given support. They report that they felt he was warm with shaking chills this evening and gave him Tylenol. However despite trying to lower potential fever there was no change in his mental status and therefore he was brought to the hospital for evaluation. Based on the patient's history of dementia he cannot offer any further history. [facility] Medical History Kidney disease Gout Dementia Diabetes HTN (hypertension) Home Medications ???Medication ???Instructions ???Recorded ???Last Taken ???Type allopurinol 100 mg tablet 100 mg PO DAILYCM 05/03/13 Unknown History gabapentin 800 mg tablet 800 mg PO TIDCM 05/03/13 Unknown H istory fhouokmi-voi-ozdmw acid 0.4 1 ea PO DAILY 05/03/13 Unknown His tory mg-lycopene 300 mcg-lutein 250 mcg tablet (Centrum Silver) atorvastatin 10 mg tablet 10 mg PO QPM 03/18/24 Unknown Hist ory donepezil 10 mg tablet 10 mg PO QHS 03/18/24 Unknown Hist ory dulaglutide 3 mg/0.5 mL 3 mg subcut QWEEK 03/18/24 Unknown History subcutaneous pen injector (Trulicity) duloxetine 60 mg capsule,delayed 60 mg PO DAILY 03/18/24 Unknown Hi story release empagliflozin 25 mg tablet 25 mg PO DAILY 03/18/24 Unknown Hi story (Jardiance) ezetimibe 10 mg tablet 10 mg PO DAILY 03/18/24 Unknown Hi story glipizide 10 mg tablet, extended 10 mg PO DAILY 03/18/24 Unknown Hi story release 24 hr insulin glargine 100 unit/mL (3 75 unit subcut QPM 03/18/24 Unknow n History mL) subcutaneous pen (Basaglar KwikPen U-100 Insulin) levothyroxine 50 mcg tablet 50 mcg PO DAILY 03/18/24 Unknown H istory lisinopril 2.5 mg tablet 2.5 mg PO DAILY 03/18/24 Unknown H istory pramipexole 0.125 mg tablet 0.125 mg PO BID 03/18/24 Unknown H istory quetiapine 100 mg tablet 100 mg PO BID 03/18/24 Unknown His tory quetiapine 50 mg tablet 50 mg PO DAILY 03/18/24 Unknown Hi story rivaroxaban 20 mg tablet (Xarelto) 20 mg PO DAILY 03/18/24 Unknown History tizanidine 4 mg tablet 4 mg PO QPM 03/18/24 Unknown Histo ry tramadol 50 mg tablet 50 mg PO 4X/DAY PRN PRN pain 03/18 Unknown History trazodone 50 mg tablet 100 mg PO BID 03/18/24 Unknown His tory clonidine 0.2 mg/24 hr weekly 1 patch topical QWEEK 08/19/24 Unk nown History transdermal patch Allergy/AdvReac Type Severity Reaction Status Date / Time ibuprofen AdvReac Abd Verified 08/19/24 23:53 cramps/diarrhea Surgical History History of left shoulder replacement H/O knee surgery Social History Smoking Status: Never smoker ROS ROS ED ROS Narrative Unable to obtain review of systems secondary to patient's history of dementia Review of Systems ROS Unobtainable: due to mental status EXAM Physical Exam Const Vital Signs: 08/19/24 23:48 08/19/24 23:51 08/20/24 00:08 Temperature 99.8 F H 99.8 F H Temperature Source Oral Oral Pulse Rate 106 H 106 H Respiratory Rate 26 H 26 H Blood Pressure 93/50 L 93/50 L Blood Pressure Mean 64 64 Pulse Ox 93 93 94 Oxygen Delivery Method Nasal Cannula Nasal Cannula Nasal Cannula Oxygen Flow Rate (L/min) 2 2 2 08/20/24 00:39 08/20/24 01:10 08/20/24 02:00 Temperature 101.8 F H 101.8 F H 100.8 F H Temperature Source Core Core Core Pulse Rate 100 96 85 Respiratory Rate 20 H 24 H 19 H Blood Pressure 105/39 L 82/47 L 84/51 L Blood Pressure Mean 61 58 62 Pulse Ox 96 98 96 Oxygen Delivery Method Nasal Cannula Nasal Cannula Nasal Cannula Oxygen Flow Rate (L/min) 2 2 2 08/20/24 02:20 08/20/24 03:00 08/20/24 03:00 Temperature 100.6 F H 99.7 F H 99.7 F H Temperature Source Core (more content not included)... Normal [facility] Epithelial cells.squamous LM Ql (Urine sed)Ordered By: Kaushik Brown on 08-20-2024 Epithelial cells.squamous LM.HPF (Urine sed) [#/Area] 0 /[HPF] 0-5 [facility] Glucose Ql (U)Ordered By: Dede Brown on 08-20-2024 Glucose (U) [Mass/Vol] 1000 mg/dL High Normal [facility] H AND P Exam - [facility] 08-20-2024 H&P Exam - Hospitalist [facility] Medical Records Department [address] [place] [address] H P Exam - Hospitalist 08/20/24 0220 MR#: [id number] Acct: [id number] Name: CHARLI PORRAS Rep #: [id number] : 1950 74 From: Saroj Gutierrez DO PCP: Care Physician,No Primary Status:ADM IN Location: ICU ICU01-1 HPI - General General Date of Admission: 08/20/24 Date of Service: 08/20/24 Chief Complaint: Worsening confusion with tremors and weakness HPI Narrative CHARLI PORRAS, is a 74 M who presented to [facility] ED on 08/20/2024 with worsening confusion with tremors and weakness. Medical history is significant for dementia, recurrent UTI with suspected BPH and type 2 diabetes. He lives at home with his . Per family, at baseline he is alert and appears to make appropriate conversation until he begins to repeat himself. He does have weakness at baseline and uses a walker for ambulation. He has required both SNF placement and home health care in the past. He was treated for a UTI about 2 weeks ago. Earlier this evening his noted that he was becoming confused and then had an episode of significant tremors. She was unable to get him up out of bed due to weakness and confusion, so they called EMS to bring him in. On arrival to the ED BP was 93/50, heart rate 106, temp 99.8 F and satting in the low 90s on 2 L nasal cannula. UA was grossly infectious appearing. Given his hypoxia, CTA chest was obtained and was negative for PE and otherwise unremarkable. At temperature peak of 101.8 F in the ED. Given concern for urosepsis, hospitalist was contacted for admission. I saw the patient at bedside in the ED, and other family member present. Patient was fatigued appearing but did make eye contact with me and told me that he was at [facility]. However he could not answer any other questions for me and was not alert to time. He denied any pain or discomfort currently. History was obtained from and family member. He has had UTIs in the past but has never had urosepsis. He has required Marx catheter placement during hospitalizations but is never needed to go home with a Marx catheter. He does report frequent straining with urination at home and had burning with urination recently. No other acute concerns at this time. Notably, patient was completing his third liter of IV fluids when I saw him. Discussed with Dr. Brown and given that his blood pressure is still running low, plan is to place central line and begin vasopressors prior to patient being moved over to the ICU. [facility] Medical History Kidney disease Gout Dementia Diabetes HTN (hypertension) Home Medications ???Medication ???Instructions ???Recorded ???Last Taken ???Type allopurinol 100 mg tablet 100 mg PO DAILYCM 05/03/13 Unknown History gabapentin 800 mg tablet 800 mg PO TIDCM 05/03/13 Unknown H istory xyobawmf-qhm-itxvz acid 0.4 1 ea PO DAILY 05/03/13 Unknown His tory mg-lycopene 300 mcg-lutein 250 mcg tablet (Centrum Silver) atorvastatin 10 mg tablet 10 mg PO QPM 03/18/24 Unknown Hist ory donepezil 10 mg tablet 10 mg PO QHS 03/18/24 Unknown Hist ory dulaglutide 3 mg/0.5 mL 3 mg subcut QWEEK 03/18/24 Unknown History subcutaneous pen injector (Trulicity) duloxetine 60 mg capsule,delayed 60 mg PO DAILY 03/18/24 Unknown Hi story release empagliflozin 25 mg tablet 25 mg PO DAILY 03/18/24 Unknown Hi story (Jardiance) ezetimibe 10 mg tablet 10 mg PO DAILY 03/18/24 Unknown Hi story glipizide 10 mg tablet, extended 10 mg PO DAILY 03/18/24 Unknown Hi story release 24 hr insulin glargine 100 unit/mL (3 75 unit subcut QPM 03/18/24 Unknow n History mL) subcutaneous pen (Basaglar KwikPen U-100 Insulin) levothyroxine 50 mcg tablet 50 mcg PO DAILY 03/18/24 Unknown H istory lisinopril 2.5 mg tablet 2.5 mg PO DAILY 03/18/24 Unknown H istory pramipexole 0.125 mg tablet 0.125 mg PO BID 03/18/24 Unknown H istory quetiapine 100 mg tablet 100 mg PO BID 03/18/24 Unknown His tory quetiapine 50 mg tablet 50 mg PO DAILY 03/18/24 Unknown Hi story rivaroxaban 20 mg tablet (Xarelto) 20 mg PO DAILY 03/18/24 Unknown History tizanidine 4 mg tablet 4 mg PO QPM 03/18/24 Unknown Histo ry tramadol 50 mg tablet 50 mg PO 4X/DAY PRN PRN pain 03/18 Unknown History trazodone 50 mg tablet 100 mg PO BID 03/18/24 Unknown His tory clonidine 0.2 mg/24 hr weekly 1 patch topical QWEEK 08/19/24 Unk nown History transdermal patch Allergy/AdvReac Type Severity Reaction Status Date / Time ibuprofen AdvReac Abd Verified 08/19/24 23:53 cramps/diarrhea Surgical History History of left shoulder replacement H/ (more content not included)... Normal [facility] Influenza virus A and B and SARS-CoV-2 (COVID-19) and Respiratory syncytial virus RNAOrdered By: Kaushik Brown on 08-20-2024 SARS-CoV-2 (COVID-19) RNA LIV+probe Ql (Unsp spec) [facility] Ketones Test strip Ql (U)Ord ered By: Kaushik Brown on 08-20-2024 Ketones Ql (U) 5 mg/dl High Negative [facility] Kidney and Bladderon 025 Kidney and Bladder [facility] Imaging Services [address] [place] [address] Kidney and Bladder MR#: [id number] Acct: [id number] Name: CHARLI PORRAS Rep #: [id number] : 1950 M 74 From: Judy Brothers nd, MD PCP: Care Physician,No Primary Status: ADM IN Study: Kidney and Bladder Date of Exam: 08/20/24 Exam# [id number] Ordering Dr: Saroj Gutierrez DO PROCEDURE: KIDNEY AND BLADDER 08/20/2024 REASON FOR EXAM: UROSEPSIS, EVAL FOR PYELONEPHRITIS TECHNIQUE: Bilateral renal ultrasound. COMPARISON: None. FINDINGS: Kidneys: Tiny nonobstructing right midpole renal calculus. No left renal calculi. [place]: No hydronephrosis. Cysts or Masses: No cysts or large solid renal masses visualized by ultrasound examination. Other: Indwelling Marx catheter within the urinary bladder. RIGHT Kidney Size: 12.0 x 5.7 x 5.3 cm Volume: 191 mL Parenchymal Thickness: 1.2 cm (>14mm is normal) Cortical Thickness (if discernible): Not applicable (>6mm is normal) LEFT Kidney Size: 11.3 x 6.2 x 6.0 cm Volume: 221 mL Parenchymal Thickness: 1.1 cm (>14mm is normal) Cortical Thickness (if discernible): Not applicable (>6mm is normal) US/Kidney and Bladder IMPRESSION: 1. Mild bilateral renal cortical thinning. 2. Tiny nonobstructing right midpole renal calculus. Reading Location: [facility] CC: Dr. Saroj Gutierrez DO; No Primary Care Physician Point Of Care Specialist: Signed Normal [facility] L509.7001on 08-20-2024 Procalcitonin 0.32 ng/mL High <=0.10 [facility] Comment on above: Result Comment: Inte rpretation: <0.10-0.25 ng/mL: Antibiotic therapy discouraged. Bacterial infection unlikely. 0.25-0.50 ng/mL: Antibiotic therapy encouraged. Bacterial infection possible. >0.50 ng/mL: Antibiotic therapy strongly encouraged. Suggestive of presence of bacterial infection. PCT should always be interpreted in the clinical context of the patient. Therefore, clinicians should use the PCT results in conjunction with other laboratory findings and clinical signs of the patient. Performed By: #### L 101.9900, L100.0100, L500.2500, L501.6710 #### [facility] [address] [place], [place], [id number] Lactic Acidon 08-20-2024 Lactate [Moles/Vol] 1.4 mmol/L Normal 0.0-2.0 [facility] Comment on above: Order Comment: Y Performed By: #### L 503.6005 #### [facility] [address] [place], [address] Lactate [Moles/Vol] 3.4 mmol/L Invalid Interpretation Code 0.0-2.0 [facility] Comment on above: Order Comment: Y Result Comment: Crit ical Result(s) Called at 0048: by: NBURNS TO LSPARR??Results read back by same. Performed By: #### L 501.080 #### [facility] [address] [place], [place], [id number] Lactic acid measurementOrder ed By: Kaushik Sykes on 08-20-2024 Lactate [Moles/Vol] 1.4 mmol/L 0.0-2.0 [facility] M100.678on 08-20-2024 M100.678 SARS-CoV-2 (COVID 19 ) Negative INFLUENZA A Negative INFLUENZA B Negative RSV PCR Negative Normal [facility] Comment on above: Performed By: #### L 501.080 #### [facility] [address] [facility] [place], [place], [id number] Microscopic analysis of urin e for red blood cells (RBC)Ordered By: Kaushik Brown on 08-20-2024 Microscopic analysis of urine for red blood cells (RBC) > 100 SEEN /hpf 0-5 [facility] Urine RBC > 100 SEEN /hpf 0-5 [facility] Mucus LM Ql (Urine sed)Order ed By: Kaushik Brown on 08-20-2024 Mucus Ql (Urine sed) RARE /hpf [facility] Nitrite Test strip Ql (U)Ord ered By: Kaushik Brown on 08-20-2024 Nitrite Ql (U) Negative Negative [facility] Partial Thromboplast Timeon 08-20-2024 aPTT Coag (Bld) [Time] 32.3 s Normal 24.1-36.2 [facility] Comment on above: Performed By: #### L 101.9900, L100.0100, L500.2500, L501.6710 #### [facility] [address] [place], [address] Protein Test strip Ql (U)Ord ered By: Kaushik Brown on 08-20-2024 Protein Ql (U) 100 mg/dl High Negative [facility] Prothrombin Time w/INRon INR Coag (PPP) [Relative time] 1.6 {INR} Normal [facility] Comment on above: Performed By: #### L 501.080 #### [facility] [address] [place], [address] PT Coag (PPP) [Time] 19.2 s High 11.7-14.9 [facility] Comment on above: Performed By: #### L 501.080 #### [facility] [address] [place], [address] Squamous epithelial cells de tection in urine sediment by light microscopyOrdered By: Kaushik Brown on 08-20-2024 Epithelial cells.squamous LM Ql (Urine sed) 0-5 SEEN /hpf 0-5 [facility] Urinalysis, Completeon 08-20 AMORPHOUS 1+ Normal [facility] Comment on above: Order Comment: COLOR OF URINE MAY AFFECT DIPSTICK RESULTS.CATHETER SPECIMEN Performed By: #### L 501.080 #### [facility] [address] [place], [address] Mucus Ql (Urine sed) RARE Normal [facility] Comment on above: Order Comment: COLOR OF URINE MAY AFFECT DIPSTICK RESULTS.CATHETER SPECIMEN Performed By: #### L 501.080 #### [facility] [address] [place], [address] BACTERIA 2+ /hpf Normal None Seen [facility] Comment on above: Order Comment: COLOR OF URINE MAY AFFECT DIPSTICK RESULTS.CATHETER SPECIMEN Performed By: #### L 501.080 #### [facility] [address] [place], [address] EPI,SQUAMOUS 0-5 SEEN Normal 0-5 [facility] Comment on above: Order Comment: COLOR OF URINE MAY AFFECT DIPSTICK RESULTS.CATHETER SPECIMEN Performed By: #### L 501.080 #### [facility] [address] [place], [address] RBC > 100 SEEN Normal 0-5 [facility] Comment on above: Order Comment: COLOR OF URINE MAY AFFECT DIPSTICK RESULTS.CATHETER SPECIMEN Performed By: #### L 501.080 #### [facility] [address] [place], [address] WBC >100 SEEN Normal 0-5 [facility] Comment on above: Order Comment: COLOR OF URINE MAY AFFECT DIPSTICK RESULTS.CATHETER SPECIMEN Performed By: #### L 501.080 #### [facility] [address] [place], [address] BILIRUBIN URINE Negative Normal Negative [facility] Comment on above: Order Comment: COLOR OF URINE MAY AFFECT DIPSTICK RESULTS.CATHETER SPECIMEN Performed By: #### L 501.080 #### [facility] [address] [place], [address] Clarity (U) Cloudy Normal Clear [facility] Comment on above: Order Comment: COLOR OF URINE MAY AFFECT DIPSTICK RESULTS.CATHETER SPECIMEN Performed By: #### L 501.080 #### [facility] [address] [place], [address] Color (U) Stephanie Normal Yellow [facility] Comment on above: Order Comment: COLOR OF URINE MAY AFFECT DIPSTICK RESULTS.CATHETER SPECIMEN Performed By: #### L 501.080 #### [facility] [address] [place], [address] GLUCOSE, UR 1000 mg/dl Abnormal Normal [facility] Comment on above: Order Comment: COLOR OF URINE MAY AFFECT DIPSTICK RESULTS.CATHETER SPECIMEN Performed By: #### L 501.080 #### [facility] [address] [place], [address] KETONE UR 5 mg/dl Abnormal Negative [facility] Comment on above: Order Comment: COLOR OF URINE MAY AFFECT DIPSTICK RESULTS.CATHETER SPECIMEN Performed By: #### L 501.080 #### [facility] [address] [place], [address] LEUK ESTERASE 500 /ul Abnormal Negative [facility] Comment on above: Order Comment: COLOR OF URINE MAY AFFECT DIPSTICK RESULTS.CATHETER SPECIMEN Performed By: #### L 501.080 #### [facility] [address] [place], [address] Nitrite Ql (U) Negative Normal Negative [facility] Comment on above: Order Comment: COLOR OF URINE MAY AFFECT DIPSTICK RESULTS.CATHETER SPECIMEN Performed By: #### L 501.080 #### [facility] [address] [place], [address] OCCULT BLOOD-UR 250 /ul Abnormal Negative [facility] Comment on above: Order Comment: COLOR OF URINE MAY AFFECT DIPSTICK RESULTS.CATHETER SPECIMEN Performed By: #### L 501.080 #### [facility] [address] [place], [address] pH UR 6.0 Normal 5.0 - 8.0 [facility] Comment on above: Order Comment: COLOR OF URINE MAY AFFECT DIPSTICK RESULTS.CATHETER SPECIMEN Performed By: #### L 501.080 #### [facility] [address] [place], [address] PROT DIPSTX 100 mg/dl Abnormal Negative [facility] Comment on above: Order Comment: COLOR OF URINE MAY AFFECT DIPSTICK RESULTS.CATHETER SPECIMEN Performed By: #### L 501.080 #### [facility] [address] [place], [address] SP.GR. DIPSTX 1.010 Normal 1.002-1.030 [facility] Comment on above: Order Comment: COLOR OF URINE MAY AFFECT DIPSTICK RESULTS.CATHETER SPECIMEN Performed By: #### L 501.080 #### [facility] [address] [place], [address] UROBILI Normal Normal Normal [facility] Comment on above: Order Comment: COLOR OF URINE MAY AFFECT DIPSTICK RESULTS.CATHETER SPECIMEN Performed By: #### L 501.080 #### [facility] [address] [place], [address] Urine blood detectionOrdered By: Kaushik Brown on 08-20-2024 Urine Occult Blood 250 /ul High Negative [facility] Urine clarityOrdered By: Juliano Brwon on 08-20-2024 Clarity (U) Cloudy Clear [facility] Urine color determinationOrd ered By: Kaushik Brown on 08-20-2024 Color (U) Stephanie Yellow [facility] Urine cultureOrdered By: Juliano Brown on 08-20-2024 Bacteria identified Cx Nom (U) Yeast, not Callie albicans Abnormal [facility] Bacteria identified Cx Nom (U) Positive Abnormal [facility] Urine glucose detectionOrder ed By: Kaushik Brown on 08-20-2024 Glucose Ql (U) 1000 mg/dl High Normal [facility] Urine leukocyte esterase det ection by dipstickOrdered By: Kaushik Brown on 08-20-2024 Leukocyte esterase Test strip Ql (U) 500 /ul High Negative [facility] Urine pHOrdered By: Kaushik morales on 08-20-2024 pH (U) 6.0 [pH] 5.0 - 8.0 [facility] Urine sediment bacteria coun t by microscopy (number/high power field)Ordered By: Kaushik Brown on 08-20-2024 Bacteria LM.HPF (Urine sed) [#/Area] 2 /[HPF] None Seen [facility] Urine specific gravity measu rementOrdered By: Kaushik Brown on 08-20-2024 Specific gravity (U) [Rel density] 1.010 1.002-1.030 [facility] Urine urobilinogen measureme ntOrdered By: Kaushik Brown on 08-20-2024 Urobilinogen Ql (U) Normal mg/dl Normal [facility] Urobilinogen Ql (U)Ordered B y: Kaushik Brown on 08-20-2024 Urine Urobilinogen Normal mg/dl Normal [facility] White blood cell countOrdere d By: Kaushik Brown on 08-20-2024 Urine WBC >100 SEEN /hpf 0-5 [facility] White blood cell count >100 SEEN /hpf 0-5 [facility] Absolute neutrophil countOrd ered By: Kaushik Brown on 08-19-2024 Neutrophils (Bld) [#/Vol] 7.6 10*3/uL 2.0-7.7 [facility] Activated partial thrombopla stin time (aPTT) in platelet poor plasma by coagulation aOrdered By: Kaushik Brown on 08-19-2024 aPTT Coag (PPP) [Time] 32.3 s 24.1-36.2 [facility] Anion gap in Serum or Plasma Ordered By: Kaushik Brown on 08-19-2024 Anion gap [Moles/Vol] 14 mmol/L 5-15 [facility] BUN/creatinine ratioOrdered By: Kaushik Brown on 08-19-2024 Urea nitrogen/Creatinine [Mass ratio] 9.2 mg/mg Low 10-20 [facility] Basophil percentageOrdered B y: Kaushik Brown on 08-19-2024 Basophils/100 WBC (Bld) 0.5 % 0-1 [facility] Bilirubin, totalOrdered By: Kaushik Brown on 08-19-2024 Bilirubin [Mass/Vol] 0.76 mg/dL 0.00-1.30 [facility] Blood cultureOrdered By: Juliano Brown on 04-18-2025 Bacteria identified Cx Nom (Bld) No growth in 5 days. [facility] Carbon dioxide, total [Moles /volume] in Central venous bloodOrdered By: Kaushik Brown on 08-19-2024 CO2 [Moles/Vol] 19.8 mmol/L Low 21.0-32.0 [facility] Chloride assayOrdered By: Dede Brown on 08-19-2024 Chloride [Moles/Vol] 100 mmol/L 98-108 [facility] Eosinophil percentageOrdered By: Kaushik Brown on 08-19-2024 Eosinophils/100 WBC (Bld) 0.1 % 0-5 [facility] Erythrocyte distribution wid th (RBC) [Ratio]Ordered By: Kaushik Brown on 08-19-2024 Erythrocyte distribution width (RBC) [Entitic vol] 48.7 fL High 35.1-43.9 [facility] Erythrocyte distribution wid th ratioOrdered By: Kaushik Brown on 08-19-2024 Erythrocyte distribution width (RBC) [Ratio] 14.6 % 11.6-14.6 [facility] Estimation of creatinine joy aranceOrdered By: Kaushik Brown on 08-19-2024 Estimated Creatinine Clearance Calc 45.50 ml/min Low 50-250 [facility] GFR/1.73 sq M.predicted [place] g non-blacks MDRD (S/P/Bld) [Vol rate/Area]Ordered By: Kaushik Brown on 08-19-2024 Estimated GFR (MDRD) Non-Af Amer 36 Low >60 [facility] Comment on above: mL/min/1.73m2 CKD-EP I Creatinine Equation (2020) Hematocrit Auto (Bld) [Volum e fraction]Ordered By: Kaushik Brown on 08-19-2024 Hematocrit (Bld) [Volume fraction] 37.4 % Low 40-54 [facility] Hemoglobin measurementOrdere d By: Kaushik Brown on 08-19-2024 Hemoglobin (Bld) [Mass/Vol] 12.7 g/dL Low 13.0-16.5 [facility] Immature granulocytes/100 WB C Auto (Bld)Ordered By: Kaushik Brown on 08-19-2024 Immature granulocytes/100 WBC (Bld) 1.000 % High 0.0-0.9 [facility] Comment on above: IG% - Immature Granu locytes (promyelocytes, myelocytes and metamyelocytes) > 1% indicates that a LEFT SHIFT is Present. International normalized rat io (INR) calculationOrdered By: Kaushik Brown on 08-19-2024 INR Coag (Bld) [Relative time] 1.6 {INR} [facility] - Chemistry and C hemistry - challengeOrdered By: Kaushik Brown on 08-19-2024 AST [Catalytic activity/Vol] 29 U/L <38 [facility] Lactic acid measurementOrder ed By: Kaushik Brown on 08-19-2024 Lactate [Moles/Vol] 3.4 mmol/L High 0.0-2.0 [facility] Comment on above: Critical Result(s) C alled at 0048: by: CHARLAURNS TO LSPARR Results read back by same. Lymphocytes Auto (Unsp spec) [#/Vol]Ordered By: Kaushik Brown on 08-19-2024 Lymphocytes (Bld) [#/Vol] 0.55 10*3/uL Low 0.83-4.51 [facility] Lymphocytes/100 WBC Auto (Un sp spec)Ordered By: Kaushik Brown on 08-19-2024 Lymphocytes/100 WBC (Bld) 6.3 % Low 19-41 [facility] MCV (mean corpuscular volume ) determinationOrdered By: Kaushik Brown on 08-19-2024 MCV (RBC) [Entitic vol] 91.7 fL 80-94 [facility] Mean corpuscular hemoglobin (MCH) determinationOrdered By: Kaushik Brown on 08-19-2024 MCH (RBC) [Entitic mass] 31.1 pg 27.0-32.0 [facility] Mean corpuscular hemoglobin concentration (MCHC) determinationOrdered By: Kaushik Brown on 08-19-2024 MCHC (RBC) [Mass/Vol] 34.0 g/dL 32-36 [facility] Mean platelet volume determi nationOrdered By: Kaushik Brown on 08-19-2024 Platelet mean volume (Bld) [Entitic vol] 9.3 fL 6.2-12.0 [facility] Monocyte percentageOrdered B y: Kaushik Brown on 08-19-2024 Monocytes/100 WBC (Bld) 4.9 % 0-10 [facility] Neutrophil percentageOrdered By: Kaushik Brown on 08-19-2024 Neutrophils/100 WBC (Bld) 87.2 % High 47-70 [facility] Nucleated red blood cell per centageOrdered By: Kaushik Brown on 08-19-2024 Nucleated RBC/100 WBC (Bld) [Ratio] 0 % 0-5 [facility] Platelet countOrdered By: Dede Brown on 08-19-2024 Platelets (Bld) [#/Vol] 126 10*3/uL Low 150-450 [facility] Potassium (Unsp spec) [Mass/ Vol]Ordered By: Kaushik Brown on 08-19-2024 Potassium [Moles/Vol] 5.3 mmol/L High 3.3-5.1 [facility] Procalcitonin IA [Mass/Vol]O rdered By: Kaushik Brown on 08-19-2024 Procalcitonin 0.32 ng/mL High <0.11 [facility] Comment on above: Interpretation:<0.10 -0.25 ng/mL: Antibiotic therapy discouraged. Bacterial infection unlikely.0.25-0.50 ng/mL: Antibiotic therapy encouraged. Bacterial infection possible.>0.50 ng/mL: Antibiotic therapy strongly encouraged. Suggestive of presence of bacterial infection.PCT should always be interpreted in the clinical context of the patient. Therefore, clinicians should use the PCT results in conjunction with other laboratory findings and clinical signs of the patient. Procalcitonin [Mass/volume] in Serum or Plasma by ImmunoassayOrdered By: Kaushik Brown on 08-19-2024 Procalcitonin IA [Mass/Vol] 0.32 ng/mL High <0.11 [facility] Comment on above: Interpretation:<0.10 -0.25 ng/mL: Antibiotic therapy discouraged. Bacterial infection unlikely.0.25-0.50 ng/mL: Antibiotic therapy encouraged. Bacterial infection possible.>0.50 ng/mL: Antibiotic therapy strongly encouraged. Suggestive of presence of bacterial infection.PCT should always be interpreted in the clinical context of the patient. Therefore, clinicians should use the PCT results in conjunction with other laboratory findings and clinical signs of the patient. Prothrombin timeOrdered By: Kaushik Brown on 08-19-2024 PT Coag (PPP) [Time] 19.2 s High 11.7-14.9 [facility] RBC Auto (Bld) [#/Vol]Ordere d By: Kaushik Brown on 08-19-2024 RBC (Bld) [#/Vol] 4.08 10*6/uL Low 4.6-6.2 [facility] Serum creatinine measurement (mass/volume)Ordered By: Kaushik Brown on 08-19-2024 Creatinine [Mass/Vol] 1.90 mg/dL High 0.70-1.20 [facility] Serum globulin measurementOr dered By: Kaushik Brown on 08-19-2024 Globulin (S) [Mass/Vol] 3.4 g/dL 2.2-4.2 [facility] Serum glucose measurement (m ass/volume)Ordered By: Kaushik Brown on 08-19-2024 Glucose [Mass/Vol] 245 mg/dL High 70-99 [facility] Serum or plasma alanine wylie otransferase (ALT) measurementOrdered By: Kaushik Brown on 08-19-2024 ALT [Catalytic activity/Vol] 24 U/L <47 [facility] Serum or plasma albumin maricel urement (mass/volume)Ordered By: Kaushik Brown on 08-19-2024 Albumin [Mass/Vol] 3.6 g/dL 3.4-4.8 [facility] Serum or plasma albumin/glob ulin mass ratioOrdered By: Kaushik Bronw 08-19-2024 Albumin/Globulin [Mass ratio] 1.1 {ratio} 0.9-2.4 [facility] Serum or plasma alkaline ivan sphatase measurementOrdered By: Kaushik Brown 08-19-2024 ALP [Catalytic activity/Vol] 78 U/L 40-129 [facility] Serum or plasma calcium maricel urement (mass/volume)Ordered By: Kaushik Brown on 08-19-2024 Calcium [Mass/Vol] 8.8 mg/dL 7.6-11.0 [facility] Serum or plasma urea nitroge n measurement (mass/volume)Ordered By: Kaushik Brown on 08-19-2024 Urea nitrogen [Mass/Vol] 17 mg/dL 4-19 [facility] Sodium levelOrdered By: Bill Brown on 08-19-2024 Sodium [Moles/Vol] 133 mmol/L 133-145 [facility] Total proteinOrdered By: Juliano Brown on 08-19-2024 Protein [Mass/Vol] 7.0 g/dL 5.9-8.4 [facility] White blood cell (WBC) count Ordered By: Kaushik Brown on 08-19-2024 WBC (Bld) [#/Vol] 8.7 10*3/uL 4.4-11.0 [facility] aPTT Coag (PPP) [Time]Ordere d By: Kaushik Brown on 08-19-2024 aPTT Coag (Bld) [Time] 32.3 s 24.1-36.2 [facility] Basic Metabolic Profile (BMP )on 03-18-2024 BUN/CRE 13.4 RATIO Normal 10-20 [facility] Comment on above: Performed By: #### L 101.9900, L100.0100, L500.2500, L501.6710 #### [facility] [address] [place], [address] CA,Total 9.2 mg/dL Normal 8.5-10.1 [facility] Comment on above: Performed By: #### L 101.9900, L100.0100, L500.2500, L501.6710 #### [facility] [address] [place], [address] Chloride [Moles/Vol] 107 mmol/L Normal 98-107 [facility] Comment on above: Performed By: #### L 101.9900, L100.0100, L500.2500, L501.6710 #### [facility] [address] [place], [address] CO2 [Moles/Vol] 24.0 mmol/L Normal 21.0-32.0 [facility] Comment on above: Performed By: #### L 101.9900, L100.0100, L500.2500, L501.6710 #### [facility] [address] [place], [address] Creatinine [Mass/Vol] 1.87 mg/dL High 0.70-1.30 [facility] Comment on above: Result Comment: The validity of the calculated GFR GFRAA in patients over 70 years has not been determined. Clinical correlation is essential. Performed By: #### L 101.9900, L100.0100, L500.2500, L501.6710 #### [facility] [address] [place], [address] ECRCL 49.07 ml/min Normal [facility] Comment on above: Performed By: #### L 101.9900, L100.0100, L500.2500, L501.6710 #### [facility] [address] [place], [address] EST GFR - AA 46 mL/min Low >60 [facility] Comment on above: Result Comment: Afri can Andorran GFR Calc Performed By: #### L 101.9900, L100.0100, L500.2500, L501.6710 #### [facility] [address] [place], [address] GAP 5 Normal 5-15 [facility] Comment on above: Performed By: #### L 101.9900, L100.0100, L500.2500, L501.6710 #### [facility] [address] [place], [address] GFR/1.73 sq M.predicted among non-blacks MDRD (S/P/Bld) [Vol rate/Area] 38 mL/min/{1.73_m2} Low >60 [facility] Comment on above: Result Comment: Non- GFR Calc Performed By: #### L 101.9900, L100.0100, L500.2500, L501.6710 #### [facility] [address] [place], [address] Glucose [Mass/Vol] 199 mg/dL High 74-106 [facility] Comment on above: Result Comment: Fast ing Glucose result greater than or equal to 126 mg/dL suggests DIABETES MELLITUS per A.D.A. criteria. Performed By: #### L 101.9900, L100.0100, L500.2500, L501.6710 #### [facility] [address] [place], [address] Potassium [Moles/Vol] 4.8 mmol/L Normal 3.5-5.1 [facility] Comment on above: Performed By: #### L 101.9900, L100.0100, L500.2500, L501.6710 #### [facility] [address] [place], [address] Sodium [Moles/Vol] 136 mmol/L Normal 136-145 [facility] Comment on above: Performed By: #### L 101.9900, L100.0100, L500.2500, L501.6710 #### [facility] [address] [place], [address] Urea nitrogen [Mass/Vol] 25 mg/dL High 7-18 [facility] Comment on above: Performed By: #### L 101.9900, L100.0100, L500.2500, L501.6710 #### [facility] [address] [place], [address] CBC W/Diff, Automatedon 03-04 Absolute Lymph 1.47 X10 3/uL Normal 0.83-4.51 [facility] Comment on above: Performed By: #### L 101.9900, L100.0100, L500.2500, L501.6710 #### [facility] [address] [place], [address] Absolute Neut 4.7 X10 3/uL Normal 2.0-7.7 [facility] Comment on above: Performed By: #### L 101.9900, L100.0100, L500.2500, L501.6710 #### [facility] [address] [place], [address] Basophils/100 WBC (Bld) 0.6 % Normal 0-1 [facility] Comment on above: Performed By: #### L 101.9900, L100.0100, L500.2500, L501.6710 #### [facility] [address] [place], [address] Eosinophils/100 WBC (Bld) 2.3 % Normal 0-5 [facility] Comment on above: Performed By: #### L 101.9900, L100.0100, L500.2500, L501.6710 #### [facility] [address] [place], [address] Erythrocyte distribution width (RBC) [Ratio] 15.0 % High 11.6-14.6 [facility] Comment on above: Performed By: #### L 101.9900, L100.0100, L500.2500, L501.6710 #### [facility] [address] [place], [address] Hematocrit (Bld) [Volume fraction] 41.8 % Normal 40-54 [facility] Comment on above: Performed By: #### L 101.9900, L100.0100, L500.2500, L501.6710 #### [facility] [address] [place], [address] Hemoglobin (Bld) [Mass/Vol] 13.7 g/dL Normal 13.0-16.5 [facility] Comment on above: Performed By: #### L 101.9900, L100.0100, L500.2500, L501.6710 #### [facility] [address] [place], [address] IG% 1.000 High 0.0-0.9 [facility] Comment on above: Result Comment: IG% - Immature Granulocytes (promyelocytes, myelocytes and metamyelocytes) > 1% indicates that a LEFT SHIFT is Present. Performed By: #### L 101.9900, L100.0100, L500.2500, L501.6710 #### [facility] [address] [place], [address] Lymphocytes/100 WBC (Bld) 21.2 % Normal 19-41 [facility] Comment on above: Performed By: #### L 101.9900, L100.0100, L500.2500, L501.6710 #### [facility] [address] [place], [address] MCH (RBC) [Entitic mass] 31.6 pg Normal 27.0-32.0 [facility] Comment on above: Performed By: #### L 101.9900, L100.0100, L500.2500, L501.6710 #### [facility] [address] [place], [address] MCHC (RBC) [Mass/Vol] 32.8 g/dL Normal 32-36 [facility] Comment on above: Performed By: #### L 101.9900, L100.0100, L500.2500, L501.6710 #### [facility] [address] [place], [address] MCV (RBC) [Entitic vol] 96.3 fL High 80-94 [facility] Comment on above: Performed By: #### L 101.9900, L100.0100, L500.2500, L501.6710 #### [facility] [address] [place], [address] Monocytes/100 WBC (Bld) 7.5 % Normal 0-10 [facility] Comment on above: Performed By: #### L 101.9900, L100.0100, L500.2500, L501.6710 #### [facility] [address] [place], [address] Neutrophils/100 WBC (Bld) 67.4 % Normal 47-70 [facility] Comment on above: Performed By: #### L 101.9900, L100.0100, L500.2500, L501.6710 #### [facility] [address] [place], [address] Nucleated RBC (Bld) [#/Vol] 0 10*3/uL Normal 0-5 [facility] Comment on above: Performed By: #### L 101.9900, L100.0100, L500.2500, L501.6710 #### [facility] [address] [place], [address] Platelet mean volume (Bld) [Entitic vol] 9.4 fL Normal 6.2-12.0 [facility] Comment on above: Performed By: #### L 101.9900, L100.0100, L500.2500, L501.6710 #### [facility] [address] [place], [address] Platelets (Bld) [#/Vol] 112 10*3/uL Low 150-450 [facility] Comment on above: Performed By: #### L 101.9900, L100.0100, L500.2500, L501.6710 #### [facility] [address] [place], [address] RBC (Bld) [#/Vol] 4.34 10*6/uL Low 4.6-6.2 [facility] Comment on above: Performed By: #### L 101.9900, L100.0100, L500.2500, L501.6710 #### [facility] [address] [place], [address] RDW SD 53.0 fl High 35.1-43.9 [facility] Comment on above: Performed By: #### L 101.9900, L100.0100, L500.2500, L501.6710 #### [facility] [address] [place], [address] WBC (Bld) [#/Vol] 6.9 10*3/uL Normal 4.4-11.0 [facility] Comment on above: Performed By: #### L 101.9900, L100.0100, L500.2500, L501.6710 #### [facility] [address] [place], [address] CRPon 03-18-2024 C-REACTIVE PROT 26.00 mg/L High 0.0-3.0 [facility] Comment on above: Result Comment: C-Re active Protein (CRP) provides useful information for the diagnosis, therapy and monitoring of inflammatory processes and associated diseases. For the evaluation of Relative Risk for Cardiovascular Disease, a High Sensitivity CRP (HSCRP) should be ordered. Performed By: #### L 101.9900, L100.0100, L500.2500, L501.6710 #### [facility] [address] [place], [address] Chest PA and Lateralon 03-18 Chest PA and Lateral [facility] Imaging Services [address] [place] [address] Chest PA and Lateral MR#: [id number] Acct: [id number] Name: CHARLI PORRAS Rep #: [id number] : 1950 M 73 From: Azar cotter MD PCP: Care Physician,No Primary Status: [facility] ER Study: Chest PA and Lateral Date of Exam: 03/18/24 Exam# [id number] Ordering Dr: Elicia Blair [id number] STUDY: X-RAY CHEST REASON FOR EXAM: Male, 73 years old. cough TECHNIQUE: Single AP portable view of the chest. COMPARISON: None. FINDINGS: The lungs are clear and expanded. There is no demonstrated pleural abnormality. Normal size heart. Normal mediastinum and clifford. Normal visualized pulmonary arteries. Normal visualized aortic arch and descending thoracic aorta. Normal visualized thoracic spine. Status post left shoulder replacement. There is no demonstrated abnormality of the visualized soft tissue structures of the upper abdomen. RAD/Chest PA and Lateral IMPRESSION: Normal x-ray examination of the chest. Electronically Signed: Azar Hsu MD at 12:32 EST Reading Location ID and State: [facility] / [place] , Service support , CC: BRANT Chávez; No Primary Care Physician Point Of Care Specialist: Signed Normal [facility] Emergency Department Summary on 03-18-2024 Emergency Department Summary [facility] Medical Records Department [address] [place] [address] Emergency Department Summary 03/18/24 MR#: [id number] Acct: [id number] Name: CHARLI PORRAS Rep #: [id number] : 1950 73 From: Elicia GUO PCP: Care Physician,No Primary Status:DEP ER Location: ED HPI History of Present Illness Chief Complaint: Wound Narrative Narrative: Patient presenting today due to a wound that he has had to the dorsum of his left foot for about 3 to 4 months, he reports that it is progressively worsening. He also reports that he has had a nonproductive cough for over a week. His encouraged him to come in to be evaluated. He has never seen his doctor or a helicopter crew chief for this wound, it is being managed at home. He denies any fevers, chills, shortness of breath, chest pain, abdominal pain, nausea, and vomiting. He does have a history of T2DM, HTN, HLD, and CKD. [facility] Medical History Kidney disease Gout Dementia Diabetes HTN (hypertension) Home Medications ???Medication ???Instructions ???Recorded ???Last Taken ???Type allopurinol 100 mg tablet 100 mg PO DAILYCM 05/03/13 Unknown History gabapentin 800 mg tablet 800 mg PO TIDCM 05/03/13 Unknown History bssweuca-wcb-jymte acid 0.4 1 ea PO DAILY 05/03/13 Unknown History mg-lycopene 300 mcg-lutein 250 mcg tablet (Centrum Silver) rosuvastatin 10 mg tablet 10 mg PO DAILY 05/03/13 Unknown History albuterol sulfate 90 mcg/actuation 2 puff inhalation PRN sob 03/18/24 Unknown History aerosol inhaler atorvastatin 10 mg tablet 10 mg PO QPM 03/18/24 Unknown History donepezil 10 mg tablet 10 mg PO QHS 03/18/24 Unknown History dulaglutide 3 mg/0.5 mL 3 mg subcut QWEEK 03/18/24 Unknown History subcutaneous pen injector (Trulicity) duloxetine 60 mg capsule,delayed 60 mg PO DAILY 03/18/24 Unknown History release empagliflozin 25 mg tablet 25 mg PO DAILY 03/18/24 Unknown History (Jardiance) ezetimibe 10 mg tablet 10 mg PO DAILY 03/18/24 Unknown History glipizide 10 mg tablet, extended 10 mg PO DAILY 03/18/24 Unknown History release 24 hr insulin glargine 100 unit/mL (3 75 unit subcut QPM 03/18/24 Unknown History mL) subcutaneous pen (Basaglar KwikPen U-100 Insulin) levothyroxine 50 mcg tablet 50 mcg PO DAILY 03/18/24 Unknown History lisinopril 2.5 mg tablet 2.5 mg PO DAILY 03/18/24 Unknown History pramipexole 0.125 mg tablet 0.125 mg PO BID 03/18/24 Unknown History quetiapine 100 mg tablet 100 mg PO BID 03/18/24 Unknown History quetiapine 50 mg tablet 50 mg PO DAILY 03/18/24 Unknown History rivaroxaban 20 mg tablet (Xarelto) 20 mg PO DAILY 03/18/24 Unknown History tizanidine 4 mg tablet 4 mg PO QPM 03/18/24 Unknown History tramadol 50 mg tablet 50 mg PO 4X/DAY PRN PRN pain 03/18/24 Unknown History trazodone 50 mg tablet 100 mg PO BID 03/18/24 Unknown History Allergy/AdvReac Type Severity Reaction Status Date / Time ibuprofen AdvReac Abd Verified 03/18/24 10:57 cramps/diarrhea Surgical History History of left shoulder replacement H/O knee surgery Social History Smoking Status: Never smoker ROS ROS ED Constitutional Constitutional ED: Denies chills or fever(s) Cardiovascular Cardiovascular: Denies chest pain Respiratory/Chest Respiratory/Chest: Reports cough; Denies dyspnea, tachypnea or wheezing Gastrointestinal Gastrointestinal: Denies abdominal pain, nausea or vomiting Musculoskeletal Musculoskeletal: Denies arthralgias or myalgias Integumentary Reports other Details: Chronic left foot wound Neurologic Neurologic: Denies weakness EXAM Physical Exam Const Vital Signs: 03/18/24 10:52 03/18/24 10:56 03/18/24 11:56 Temperature 97.8 F 97.8 F 98.2 F Temperature Source Oral Oral Oral Pulse Rate 79 81 77 Respiratory Rate 18 18 16 Blood Pressure 158/69 H 158/69 H 140/66 H Blood Pressure Mean 98 98 90 Pulse Ox 95 96 94 Oxygen Delivery Method Room Air Room Air Room Air 03/18/24 12:00 03/18/24 13:02 Temperature 98.2 F 97.9 F Temperature Source Oral Temporal Pulse Rate 76 69 Respiratory Rate 14 21 H Blood Pressure 140/66 H 140/55 H Blood Pressure Mean 90 83 Pulse Ox 95 97 Oxygen Delivery Method Room Air Room Air Positive well nourished, well developed and no apparent distress General Appearance ED: well developed HEENT Reports normocephalic and head/scalp atraumatic Mouth ED: Yes moist mucous membranes normal Eyes PERRL and EOMs intact bilaterally Neck full ROM and supple Chest Wall inspection of chest normal Resp normal respiratory (more content not included)... Normal [facility] Erythrocyte Sed Rateon 03-18 SED RATE 24 mm/hr High 0-20 [facility] Comment on above: Performed By: #### L 101.9900, L100.0100, L500.2500, L501.6710 #### [facility] [address] [place], [address] Foot min 3 Viewson 4 Foot min 3 Views [facility] Imaging Services [address] [place] [address] Foot min 3 Views MR#: [id number] Acct: [id number] Name: CHARLI PORRAS Rep #: [id number] : 1950 M 73 From: Azar cotter MD PCP: Care Physician,No Primary Status: [facility] ER Study: Foot min 3 Views Date of Exam: 03/18/24 Exam# [id number] Ordering Dr: Elicia Blair [id number] STUDY: X-RAY - LEFT FOOT CLINICAL: Male, 73 years old. Dorsal wound. TECHNIQUE: 3 view(s) of the foot. COMPARISON: None. FINDINGS: Calcaneal spurs. Normal visualized subtalar, talonavicular, calcaneocuboid, tarsal and tarsometatarsal articulations. Normal metatarsi. There is degenerative arthrosis of the metatarsophalangeal joint of the hallux . Normal tibial and fibular sesamoid bones. Normal interphalangeal joint of the great toe. Normal phalanges of the great toe. Normal second through fifth metatarsophalangeal joints. Normal interphalangeal joints and phalanges of the lesser toes. Soft tissue swelling. Vascular calcification. RAD/Foot min 3 Views IMPRESSION: Soft tissue swelling and vascular calcification. Electronically Signed: Azar Hsu MD at 12:32 EST , CC: BRANT Chávez; No Primary Care Physician Point Of Care Specialist: Signed Normal [facility] Absolute lymphocyte countOrd ered By: Elicia Blair on 11-06-2022 Lymphocytes Auto (Unsp spec) [#/Vol] 1.15 10*3/uL 0.83-4.51 [facility] Basophil percentageOrdered B y: Elicia Blair on 11-06-2022 Basophils/100 WBC (Bld) 0.6 % 0-1 [facility] Chloride [Moles/Vol] 104 mmol/L 98-107 [facility] Eosinophils/100 WBC (Bld) 2.7 % 0-5 [facility] Glucose [Mass/Vol] 310 mg/dL 74-106 [facility] Comment on above: Glucose result great er than or equal to 200 mg/dLsuggests DIABETES MELLITUS per A.D.A. criteria. Neutrophils (Bld) [#/Vol] 4.4 10*3/uL 2.0-7.7 [facility] Neutrophils/100 WBC (Bld) 70.7 % 47-70 [facility] Potassium [Moles/Vol] 4.2 mmol/L 3.5-5.1 [facility] Sodium [Moles/Vol] 137 mmol/L 136-145 [facility] WBC (Bld) [#/Vol] 6.3 10*3/uL 4.4-11.0 [facility] Blood erythrocytes count (nu mber/volume)Ordered By: Elicia Blair on 11-06-2022 RBC (Bld) [#/Vol] 4.45 10*6/uL 4.6-6.2 [facility] Blood hemoglobin measurement (mass/volume)Ordered By: Elicia Blair on 11-06-2022 Hemoglobin (Bld) [Mass/Vol] 13.8 g/dL 13.0-16.5 [facility] Blood lymphocytes/100 leukoc ytesOrdered By: Elicia Blair on 11-06-2022 Lymphocytes/100 WBC (Bld) 18.3 % 19-41 [facility] Blood monocytes/100 leukocyt esOrdered By: Elicia Blair on 07-06-2023 Monocytes/100 WBC (Bld) 6.4 % 0-10 [facility] Blood platelet mean volumeOr dered By: Elicia Blair on 11-06-2022 Platelet mean volume (Bld) [Entitic vol] 8.8 fL 6.2-12.0 [facility] Determination of erythrocyte mean corpuscular volume (MCV)Ordered By: Elicia Blair on 11-06-2022 MCV (RBC) [Entitic vol] 94.6 fL 80-94 [facility] Hematocrit Auto (Bld) [Volum e fraction]Ordered By: Elicia Blair on 11-06-2022 Hematocrit (Bld) [Volume fraction] 42.1 % 40-54 [facility] - Chemistry and C hemistry - challengeOrdered By: Elicia Blair on 11-06-2022 CO2 [Moles/Vol] 29.0 mmol/L 21.0-32.0 [facility] Urea nitrogen/Creatinine [Mass ratio] 11.6 mg/mg 10-20 [facility] - Hematology and Cell countsOrdered By: Elicia Blair on 11-06-2022 Erythrocyte distribution width (RBC) [Entitic vol] 52.6 fL 35.1-43.9 [facility] Erythrocyte distribution width (RBC) [Ratio] 15.2 % 11.6-14.6 [facility] Immature granulocytes/100 WBC (Bld) 1.300 % 0.0-0.9 [facility] Comment on above: IG% - Immature Granu locytes (promyelocytes, myelocytes and metamyelocytes) > 1% indicates that a LEFT SHIFT is Present. MCH (RBC) [Entitic mass] 31.0 pg 27.0-32.0 [facility] Nucleated RBC/100 WBC (Bld) [Ratio] 0 % 0-5 [facility] MCHC Auto (RBC) [Mass/Vol]Or dered By: Elicia Blair on 11-06-2022 MCHC (RBC) [Mass/Vol] 32.8 g/dL 32-36 [facility] No Panel InformationOrdered By: Elicia Blair on 11-06-2022 Estimated Creatinine Clearance Calc 47.67 ml/min [facility] Estimated GFR (MDRD) Amer 65 mL/min >60 [facility] Comment on above: GFR Calc Estimated GFR (MDRD) Non-Af Amer 54 mL/min >60 [facility] Comment on above: Non- GFR Calc Platelets bldOrdered By: Jarrod Blair on 11-06-2022 Platelets (Bld) [#/Vol] 106 10*3/uL 150-450 [facility] Serum or plasma calcium maricel urement (mass/volume)Ordered By: Elicia Blair on 11-06-2022 Calcium [Mass/Vol] 8.6 mg/dL 8.5-10.1 [facility] Serum or plasma creatinine m easurement (mass/volume)Ordered By: Elicia Blair on 11-06-2022 Creatinine [Mass/Vol] 1.38 mg/dL 0.70-1.30 [facility] Comment on above: The validity of the calculated GFR & GFRAA in patients over 70 years has not been determined. Clinical correlation is essential. Serum or plasma urea nitroge n measurement (mass/volume)Ordered By: lEicia Blair on 11-06-2022 Urea nitrogen [Mass/Vol] 16 mg/dL 7-18 [facility] Thin prep Papanicolaou smear with manual screeningOrdered By: Elicia Blair on 11-06-2022 Thin prep Papanicolaou smear with manual screening 4 5-15 [facility] URINE CULTUREon 06-08-2022 Bacteria identified Cx Nom (U) URINE CULTURE NO BACTERIAL GROWTH Normal [facility] Comment on above: Performed By: #### B GRAY, CBCD #### [facility] [address] [place] [address] URINALYSIS REFLEX TO CULTURE on 06-06-2022 BACTERIA 1+ Abnormal [facility] Comment on above: Order Comment: FAX T O S LOWE [phone] TO PATRIOT Performed By: #### B GRAY, CBCD #### [facility] [address] [place] [address] Bilirubin Ql (U) Negative Normal Negative [facility] Comment on above: Order Comment: FAX T O S LOWE [phone] TO PATRIOT Performed By: #### B MP, CBCD #### [facility] [address] [place] [address] Clarity (U) Turbid Normal Clear [facility] Comment on above: Order Comment: FAX T O S LOWE [phone] TO PATRIOT Performed By: #### B MP, CBCD #### [facility] [address] [place] [address] Color (U) Yellow Normal Yellow [facility] Comment on above: Order Comment: FAX T O S LOWE [phone] TO PATRIOT Performed By: #### B MP, CBCD #### [facility] [address] [place] [address] Epithelial cells LM Ql (Urine sed) 2-[address] [facility] Comment on above: Order Comment: FAX T O S LOWE [phone] TO PATRIOT Performed By: #### B MP, CBCD #### [facility] [address] [place] [address] Glucose Ql (U) 3+ Normal Negative [facility] Comment on above: Order Comment: FAX T O S LOWE [phone] TO PATRIOT Performed By: #### B MP, CBCD #### [facility] [address] [place] [address] Hemoglobin Ql (U) 2+ Abnormal Negative [facility] Comment on above: Order Comment: FAX T O S LOWE [phone] TO PATRIOT Performed By: #### B MP, CBCD #### [facility] [address] [place] [address] KETONE Negative Normal Negative [facility] Comment on above: Order Comment: FAX T O S LOWE [phone] TO PATRIOT Performed By: #### B MP, CBCD #### [facility] [address] [place] [id number] LEUKO ESTERASE 2+ Abnormal Negative [facility] Comment on above: Order Comment: FAX T O S LOWE [phone] TO PATRIOT Performed By: #### B MP, CBCD #### [facility] [address] [place] [address] Nitrite Ql (U) Negative Normal Negative [facility] Comment on above: Order Comment: FAX T O S LOWE [phone] TO PATRIOT Performed By: #### B MP, CBCD #### [facility] [address] [place] [address] pH (U) 5.0 [pH] Normal 4.5-8.0 [facility] Comment on above: Order Comment: FAX T O S LOWE [phone] TO PATRIOT Performed By: #### B MP, CBCD #### [facility] [address] [place] [address] Protein Ql (U) 1+ Abnormal Negative [facility] Comment on above: Order Comment: FAX T O S LOWE [phone] TO PATRIOT Performed By: #### B MP, CBCD #### [facility] [address] [place] [address] RBC 5-10 Normal 0-2 [facility] Comment on above: Order Comment: FAX T O S LOWE [phone] TO PATRIOT Performed By: #### B MP, CBCD #### [facility] [address] [place] [address] Specific gravity (U) [Rel density] 1.025 Normal 1.001-1.030 [facility] Comment on above: Order Comment: FAX T O S LOWE [phone] TO PATRIOT Performed By: #### B MP, CBCD #### [facility] [address] [place] [address] URINE REFLEX COMMENT YES Normal NO [facility] Comment on above: Order Comment: FAX T O S LOWE [phone] TO PATRIOT Result Comment: REFL EX CRITERIA MET FOR URINE CULTURE Performed By: #### B GRAY, CBCD #### [facility] [address] [place] [address] UROBILINOGEN 1.0 E.U./dl Normal 0.0-1.0 [facility] Comment on above: Order Comment: FAX T O S LOWE [phone] TO PATRIOT Performed By: #### B GRAY, CBCD #### [facility] [address] [place] [address] WBC TNTC Normal 0-5 [facility] Comment on above: Order Comment: FAX T O S LOWE [phone] TO PATRIOT Performed By: #### B GRAY, CBCD #### [facility] [address] [place] [address] Absolute lymphocyte countOrd ered By: Naresh Sainz on 06-02-2022 Lymphocytes Auto (Unsp spec) [#/Vol] 1.3 10*3/uL 1.10-4.80 [facility] Basic Metabolic Panelon 05-06 Anion gap [Moles/Vol] 9.0 mmol/L Normal 3-11 [facility] ([place]) Comment on above: Performed By: #### C D #### [facility] [address] [place] [address] Calcium [Mass/Vol] 8.8 mg/dL Normal 8.5-10.5 [facility] ([place]) Comment on above: Performed By: #### C D #### [facility] [address] [place] [address] Chloride [Moles/Vol] 100 mmol/L Normal 98-107 [facility] ([place]) Comment on above: Performed By: #### C D #### [facility] [address] [place] [address] CO2 [Moles/Vol] 26 mmol/L Normal 21-31 [facility] ([place]) Comment on above: Performed By: #### C D #### [facility] [address] [place] [address] Creatinine [Moles/Vol] 1.3 mg/dL Normal 0.6-1.3 [facility] ([place]) Comment on above: Performed By: #### C D #### [facility] [address] [place] [address] Creatinine and Glomerular filtration rate.predicted panel (S/P/Bld) 65 mL/min Normal >60 [facility] ([place]) Comment on above: Performed By: #### C D #### [facility] [address] [place] [address] GFR/1.73 sq M.predicted among non-blacks MDRD (S/P/Bld) [Vol rate/Area] 54 mL/min/{1.73_m2} Normal >60 [facility] ([place]) Comment on above: Performed By: #### C D #### [facility] [address] [place] [address] Glucose [Mass/Vol] 153 mg/dL High 70-99 [facility] ([place]) Comment on above: Performed By: #### C D #### [facility] [address] [place] [address] Potassium [Moles/Vol] 3.9 mmol/L Normal 3.6-5.0 [facility] ([place]) Comment on above: Performed By: #### C D #### [facility] [address] [place] [address] Sodium [Moles/Vol] 135 mmol/L Normal 135-145 [facility] ([place]) Comment on above: Performed By: #### C D #### [facility] [address] [place] [address] Urea nitrogen [Mass/Vol] 13 mg/dL Normal 6-20 [facility] ([place]) Comment on above: Performed By: #### C D #### [facility] [address] [place] [address] Basophils Auto (Bld) [#/Vol] Ordered By: Naresh Sainz on 06-02-2022 Basophils (Bld) [#/Vol] 0.0 10*3/uL 0.00-0.20 [facility] Basophils/100 WBC Auto (Bld) Ordered By: Naresh Sainz on 06-02-2022 Basophils/100 WBC (Bld) 0.4 % 0.0-1.5 [facility] Blood magnesium measurement (mass/volume)Ordered By: Naresh Sainz on 06-02-2022 Magnesium (Bld) [Mass/Vol] 1.6 mEq/L 1.6-2.6 [facility] CBC W/ Auto Diffon Basophils (Bld) [#/Vol] 0.0 10*3/uL Normal 0.00-0.20 [facility] ([place]) Comment on above: Performed By: #### C D #### [facility] [address] [place] [address] Basophils/100 WBC (Bld) 0.4 % Normal 0.0-1.5 [facility] ([place]) Comment on above: Performed By: #### C D #### [facility] [address] [place] [address] Eosinophils (Bld) [#/Vol] 0.1 10*3/uL Normal 0.00-0.33 [facility] ([place]) Comment on above: Performed By: #### C D #### [facility] [address] [place] [address] Eosinophils/100 WBC (Bld) 0.9 % Normal 0.0-3.0 [facility] ([place]) Comment on above: Performed By: #### C D #### [facility] [address] [place] [address] Erythrocyte distribution width (RBC) [Ratio] 14.8 % High 10.9-14.3 [facility] ([place]) Comment on above: Performed By: #### C D #### [facility] [address] [place] [address] Hematocrit (Bld) [Volume fraction] 39.0 % Low 41.0-50.0 [facility] ([place]) Comment on above: Performed By: #### C D #### [facility] [address] [place] [address] Hemoglobin (Bld) [Mass/Vol] 12.7 g/dL Low 13.5-16.5 [facility] ([place]) Comment on above: Performed By: #### C D #### [facility] [address] [place] [address] Lymphocytes Auto (Unsp spec) [#/Vol] 1.3 10*3/uL Normal 1.10-4.80 [facility] ([place]) Comment on above: Performed By: #### C D #### [facility] [address] [place] [address] Lymphocytes/100 WBC (Bld) 16.2 % Low 24.0-44.0 [facility] ([place]) Comment on above: Performed By: #### C D #### [facility] [address] [place] [address] MCH (RBC) [Entitic mass] 28.2 pg Normal 28.0-34.0 [facility] ([place]) Comment on above: Performed By: #### C D #### [facility] [address] [place] [address] MCHC (RBC) [Mass/Vol] 32.7 g/dL Low 33.0-37.0 [facility] ([place]) Comment on above: Performed By: #### C D #### [facility] [address] [place] [address] MCV (RBC) [Entitic vol] 86.1 fL Normal 80.0-100.0 [facility] ([place]) Comment on above: Performed By: #### C D #### [facility] [address] [place] [address] Monocytes (Bld) [#/Vol] 0.8 10*3/uL High 0.20-0.70 [facility] ([place]) Comment on above: Performed By: #### C D #### [facility] [address] [place] [address] Monocytes/100 WBC (Bld) 9.4 % High 3.4-9.0 [facility] ([place]) Comment on above: Performed By: #### C D #### [facility] [address] [place] [address] Neutrophils (Bld) [#/Vol] 6.0 10*3/uL Normal 1.83-8.70 [facility] ([place]) Comment on above: Performed By: #### C D #### [facility] [address] [place] [address] Neutrophils/100 WBC (Bld) 73.1 % Normal 40.0-74.0 [facility] ([place]) Comment on above: Performed By: #### C D #### [facility] [address] [place] [address] Platelet mean volume (Bld) [Entitic vol] 6.6 fL Low 7.4-10.4 [facility] ([place]) Comment on above: Performed By: #### C D #### [facility] [address] [place] [address] Platelets (Bld) [#/Vol] 167 10*3/uL Normal 150-450 [facility] ([place]) Comment on above: Performed By: #### C D #### [facility] [address] [place] [address] RBC (Bld) [#/Vol] 4.53 10*6/uL Normal 4.50-5.50 [facility] ([place]) Comment on above: Performed By: #### C D #### [facility] [address] [place] [address] WBC (Bld) [#/Vol] 8.2 10*3/uL Normal 4.5-11.0 [facility] ([place]) Comment on above: Performed By: #### C D #### [facility] [address] [place] [address] Carbon dioxide, total [Moles /volume] in Serum or PlasmaOrdered By: Naresh Sainz on 06-02-2022 CO2 [Moles/Vol] 26 mmol/L 21-31 [facility] Chloride [Moles/volume] in S maricel or PlasmaOrdered By: Naresh Sainz on 06-02-2022 Chloride [Moles/Vol] 100 mmol/L 98-107 [facility] Creatinine and Glomerular fi ltration rate.predicted panel (S/P/Bld)Ordered By: Naresh Sainz on 06-02-2022 GFR/1.73 sq M.predicted MDRD (S/P/Bld) [Vol rate/Area] 65 mL/min/{1.73_m2} >60 [facility] Eosinophils Auto (Bld) [#/Vo l]Ordered By: Naresh Sainz on 06-02-2022 Eosinophils (Bld) [#/Vol] 0.1 10*3/uL 0.00-0.33 [facility] Eosinophils/100 WBC Auto (Bl d)Ordered By: Naresh Sainz on 06-02-2022 Eosinophils/100 WBC (Bld) 0.9 % 0.0-3.0 [facility] Erythrocyte distribution wid th Auto (RBC) [Ratio]Ordered By: Naresh Sainz on 06-02-2022 Erythrocyte distribution width (RBC) [Ratio] 14.8 % 10.9-14.3 [facility] Estimated glomerular filtrat ion rate (GFR) non- AmericanOrdered By: Naresh Sainz on 06-02-2022 GFR/1.73 sq M.predicted among non-blacks MDRD (S/P/Bld) [Vol rate/Area] 54 mL/min/{1.73_m2} >60 [facility] Glucose Glucometer (BldC) [M ass/Vol]on 06-02-2022 Glucose [Mass/Vol] 239 mg/dL Normal 70-99 [facility] ([place]) Comment on above: Performed By: #### 2 1020-3 #### [facility] [address] [place] [address] Glucose [Mass/Vol] 158 mg/dL Normal 70-99 [facility] ([place]) Comment on above: Performed By: #### 4 1653-7 #### [facility] [address] [place] [address] Glucose Glucometer (BldC) [M ass/Vol]Ordered By: Naresh Sainz on 06-02-2022 Glucose [Mass/Vol] 239 mg/dL 70-99 [facility] Hematocrit Auto (Bld) [Volum e fraction]Ordered By: Naresh Sainz on 06-02-2022 Hematocrit (Bld) [Volume fraction] 39.0 % 41.0-50.0 [facility] Hemoglobin A1con 06-02-2022 Average glucose Estimated from glycated hemoglobin (Bld) [Mass/Vol] 235 mg/dL Normal [facility] ([place]) Comment on above: Performed By: #### C D #### [facility] [address] [place] [address] HbA1c (Bld) [Mass fraction] 9.8 % High 4.0-6.0 [facility] ([place]) Comment on above: Performed By: #### C D #### [facility] [address] [place] [address] Hemoglobin [Mass/volume] in BloodOrdered By: Naresh Sainz on 06-02-2022 Hemoglobin (Bld) [Mass/Vol] 12.7 g/dL 13.5-16.5 [facility] Lymphocytes/100 WBC Auto (Bl d)Ordered By: Naresh Sainz on 06-02-2022 Lymphocytes/100 WBC (Bld) 16.2 % 24.0-44.0 [facility] MCH Auto (RBC) [Entitic mass ]Ordered By: Naresh Sainz on 06-02-2022 MCH (RBC) [Entitic mass] 28.2 pg 28.0-34.0 [facility] MCHC Auto (RBC) [Mass/Vol]Or dered By: Naresh Sainz on 06-02-2022 MCHC (RBC) [Mass/Vol] 32.7 g/dL 33.0-37.0 [facility] MCV (mean corpuscular volume ) determinationOrdered By: Naresh Sainz on 06-02-2022 MCV (RBC) [Entitic vol] 86.1 fL 80.0-100.0 [facility] Magnesium Bld-mCncon 023 Magnesium (Bld) [Mass/Vol] 1.6 mEq/L Normal 1.6-2.6 [facility] ([place]) Comment on above: Performed By: #### C D #### [facility] [address] [place] [address] Monocytes Auto (Bld) [#/Vol] Ordered By: Naresh Sainz on 06-02-2022 Monocytes (Bld) [#/Vol] 0.8 10*3/uL 0.20-0.70 [facility] Monocytes/100 WBC Auto (Bld) Ordered By: Naresh Sainz on 06-02-2022 Monocytes/100 WBC (Bld) 9.4 % 3.4-9.0 [facility] Neutrophils Auto (Bld) [#/Vo l]Ordered By: Naresh Sainz on 06-02-2022 Neutrophils (Bld) [#/Vol] 6.0 10*3/uL 1.83-8.70 [facility] Neutrophils/100 WBC Auto (Bl d)Ordered By: Naresh Sainz on 06-02-2022 Neutrophils/100 WBC (Bld) 73.1 % 40.0-74.0 [facility] No Panel InformationOrdered By: Naresh Sainz on 06-02-2022 Anticoagulation Therapy See comment [facility] Comment on above: Suggested Therapy Ra nge: 2.0 - 3.5 Platelet mean volume Auto (B ld) [Entitic vol]Ordered By: Naresh Sainz on 06-02-2022 Platelet mean volume (Bld) [Entitic vol] 6.6 fL 7.4-10.4 [facility] Platelet poor plasma interna tional normalized ratio (INR) by coagulation assay (relatOrdered By: Naresh Sainz on 06-02-2022 INR Coag (PPP) [Relative time] 1.41 {INR} 2.00-3.50 [facility] Platelets Auto (Bld) [#/Vol] Ordered By: Naresh Sainz on 06-02-2022 Platelets (Bld) [#/Vol] 167 10*3/uL 150-450 [facility] Potassium [Moles/volume] in Serum or PlasmaOrdered By: Naresh Sainz on 06-02-2022 Potassium [Moles/Vol] 3.9 mmol/L 3.6-5.0 [facility] Prothrombin Time on Coumadin on 06-02-2022 INR Coag (PPP) [Relative time] 1.41 {INR} Low 2.00-3.50 [facility] ([place]) Comment on above: Performed By: #### 3 2693-4 #### [facility] [address], [place] [id number] (259) RBC Auto (Bld) [#/Vol]Ordere d By: Naresh Sainz on 06-02-2022 RBC (Bld) [#/Vol] 4.53 10*6/uL 4.50-5.50 [facility] Reflex Urn Culton 06-02-2022 Bacteria identified Cx Nom (U) ORGANISM ID: 1.1 - Mixed Urogenital Daryn [place]el Count >100,000 CFU/ml Normal [facility] ([place]) Comment on above: Performed By: #### 6 30-4 #### [facility] [address] [place] [address] Serum glucose measurement (m ass/volume)Ordered By: Naresh Sainz on 06-02-2022 Glucose [Mass/Vol] 153 mg/dL 70-99 [facility] Serum or plasma anion gap de termination (moles/volume)Ordered By: Naresh Sainz on 06-02-2022 Anion gap [Moles/Vol] 9.0 mmol/L 3-11 [facility] Serum or plasma calcium maricel urement (mass/volume)Ordered By: Naresh Sainz on 06-02-2022 Calcium [Mass/Vol] 8.8 mg/dL 8.5-10.5 [facility] Serum or plasma creatinine m easurement (moles/volume)Ordered By: Naresh Sainz on 06-02-2022 Creatinine [Moles/Vol] 1.3 mg/dL 0.6-1.3 [facility] Serum or plasma sodium measu rement (moles/volume)Ordered By: Naresh Sainz on 06-02-2022 Sodium [Moles/Vol] 135 mmol/L 135-145 [facility] Serum or plasma urea nitroge n measurement (mass/volume)Ordered By: Naresh Sainz on 06-02-2022 Urea nitrogen [Mass/Vol] 13 mg/dL 6-20 [facility] Urine culture routineOrdered By: Thompson Hayden on 06-02-2022 Bacteria identified Cx Nom (U) Mixed Urogenital Daryn [facility] WBC Auto (Bld) [#/Vol]Ordere d By: Naresh Sainz on 06-02-2022 WBC (Bld) [#/Vol] 8.2 10*3/uL 4.5-11.0 [facility] Basic Metabolic Panelon 05-05 Anion gap [Moles/Vol] 6.0 mmol/L Normal 3-11 [facility] ([place]) Comment on above: Performed By: #### 6 30-4 #### [facility] [address] [place] [address] Calcium [Mass/Vol] 8.9 mg/dL Normal 8.5-10.5 [facility] ([place]) Comment on above: Performed By: #### 6 30-4 #### [facility] [address] [place] [address] Chloride [Moles/Vol] 101 mmol/L Normal 98-107 [facility] ([place]) Comment on above: Performed By: #### 6 30-4 #### [facility] [address] [place] [address] CO2 [Moles/Vol] 28 mmol/L Normal 21-31 [facility] ([place]) Comment on above: Performed By: #### 6 30-4 #### [facility] [address] [place] [address] Creatinine [Moles/Vol] 1.3 mg/dL Normal 0.6-1.3 [facility] ([place]) Comment on above: Performed By: #### 6 30-4 #### [facility] [address] [place] [address] Creatinine and Glomerular filtration rate.predicted panel (S/P/Bld) 65 mL/min Normal >60 [facility] ([place]) Comment on above: Performed By: #### 6 30-4 #### [facility] [address] [place] [address] GFR/1.73 sq M.predicted among non-blacks MDRD (S/P/Bld) [Vol rate/Area] 54 mL/min/{1.73_m2} Normal >60 [facility] ([place]) Comment on above: Performed By: #### 6 30-4 #### [facility] [address] [place] [address] Glucose [Mass/Vol] 157 mg/dL High 70-99 [facility] ([place]) Comment on above: Performed By: #### 6 30-4 #### [facility] [address] [place] [address] Potassium [Moles/Vol] 3.8 mmol/L Normal 3.6-5.0 [facility] ([place]) Comment on above: Performed By: #### 6 30-4 #### [facility] [address] [place] [address] Sodium [Moles/Vol] 135 mmol/L Normal 135-145 [facility] ([place]) Comment on above: Performed By: #### 6 30-4 #### [facility] [address] [place] [address] Urea nitrogen [Mass/Vol] 15 mg/dL Normal 6-20 [facility] ([place]) Comment on above: Performed By: #### 6 30-4 #### [facility] [address] [place] [address] CBC W/ Auto Diffon 3 Basophils (Bld) [#/Vol] 0.1 10*3/uL Normal 0.00-0.20 [facility] ([place]) Comment on above: Performed By: #### 6 30-4 #### [facility] [address] [place] [address] Basophils/100 WBC (Bld) 0.8 % Normal 0.0-1.5 [facility] ([place]) Comment on above: Performed By: #### 6 30-4 #### [facility] [address] [place] [address] Eosinophils (Bld) [#/Vol] 0.2 10*3/uL Normal 0.00-0.33 [facility] ([place]) Comment on above: Performed By: #### 6 30-4 #### [facility] [address] [place] [address] Eosinophils/100 WBC (Bld) 3.1 % High 0.0-3.0 [facility] ([place]) Comment on above: Performed By: #### 6 30-4 #### [facility] [address] [place] [address] Erythrocyte distribution width (RBC) [Ratio] 14.8 % High 10.9-14.3 [facility] ([place]) Comment on above: Performed By: #### 6 30-4 #### [facility] [address] [place] [address] Hematocrit (Bld) [Volume fraction] 37.9 % Low 41.0-50.0 [facility] ([place]) Comment on above: Performed By: #### 6 30-4 #### [facility] [address] [place] [address] Hemoglobin (Bld) [Mass/Vol] 12.6 g/dL Low 13.5-16.5 [facility] ([place]) Comment on above: Performed By: #### 6 30-4 #### [facility] [address] [place] [address] Lymphocytes Auto (Unsp spec) [#/Vol] 1.5 10*3/uL Normal 1.10-4.80 [facility] ([place]) Comment on above: Performed By: #### 6 30-4 #### [facility] [address] [place] [address] Lymphocytes/100 WBC (Bld) 21.5 % Low 24.0-44.0 [facility] ([place]) Comment on above: Performed By: #### 6 30-4 #### [facility] [address] [place] [address] MCH (RBC) [Entitic mass] 28.7 pg Normal 28.0-34.0 [facility] ([place]) Comment on above: Performed By: #### 6 30-4 #### [facility] [address] [place] [address] MCHC (RBC) [Mass/Vol] 33.3 g/dL Normal 33.0-37.0 [facility] ([place]) Comment on above: Performed By: #### 6 30-4 #### [address] [address] MCV (RBC) [Entitic vol] 86.0 fL Normal 80.0-100.0 [facility]) Comment on above: Performed By: #### 6 30-4 #### [address] [address] Monocytes (Bld) [#/Vol] 0.5 10*3/uL Normal 0.20-0.70 [facility] ([place]) Comment on above: Performed By: #### 6 30-4 #### [address] [address] Monocytes/100 WBC (Bld) 7.2 % Normal 3.4-9.0 [facility] ([place]) Comment on above: Performed By: #### 6 30-4 #### [address] [address] Neutrophils (Bld) [#/Vol] 4.9 10*3/uL Normal 1.83-8.70 [facility] ([place]) Comment on above: Performed By: #### 6 30-4 #### [address] [address] Neutrophils/100 WBC (Bld) 67.4 % Normal 40.0-74.0 [facility] ([place]) Comment on above: Performed By: #### 6 30-4 #### [address] [address] Platelet mean volume (Bld) [Entitic vol] 6.6 fL Low 7.4-10.4 [facility] ([place]) Comment on above: Performed By: #### 6 30-4 #### [address] [address] Platelets (Bld) [#/Vol] 155 10*3/uL Normal 150-450 [facility] ([place]) Comment on above: Performed By: #### 6 30-4 #### [address] [address] RBC (Bld) [#/Vol] 4.41 10*6/uL Low 4.50-5.50 [facility] ([place]) Comment on above: Performed By: #### 6 30-4 #### [facility] [address] [place] [address] WBC (Bld) [#/Vol] 7.2 10*3/uL Normal 4.5-11.0 [facility] ([place]) Comment on above: Performed By: #### 6 30-4 #### [facility] [address] [place] [address] Glucose Glucometer (BldC) [M ass/Vol]on 06-01-2022 Glucose [Mass/Vol] 161 mg/dL Normal 70-99 [facility] ([place]) Comment on above: Performed By: #### 4 1653-7 #### [facility] [address] [place] [address] Glucose [Mass/Vol] 206 mg/dL Normal 70-99 [facility] ([place]) Comment on above: Performed By: #### 6 30-4 #### [facility] [address] [place] [address] Glucose [Mass/Vol] 232 mg/dL Normal 70-99 [facility] ([place] Comment on above: Performed By: #### 6 30-4 #### [facility] [address] [place] [address] Glucose [Mass/Vol] 152 mg/dL Normal 70-99 [facility] ([place]) Comment on above: Performed By: #### 4 1653-7 #### [facility] [address] [place] [address] Laboratory - Hematology and Cell countsOrdered By: Naresh Sainz on 06-01-2022 HbA1c (Bld) [Mass fraction] 9.8 % 4.0-6.0 [facility] Lipid Panelon 06-01-2022 Cholesterol [Mass/Vol] 97 mg/dL Low 140-200 [facility] ([place]) Comment on above: Performed By: #### 9 4500-6 #### [facility] [address] [place] [address] Cholesterol in HDL [Mass/Vol] 28 mg/dL Low 29-71 [facility] ([place]) Comment on above: Performed By: #### 9 4500-6 #### [facility] [address] [place] [address] Cholesterol in LDL [Mass/Vol] 48 mg/dL Normal <129 [facility] ([place]) Comment on above: Performed By: #### 9 4500-6 #### [facility] [address] [place] [address] Cholesterol in LDL/Cholesterol in HDL [Mass ratio] 1.7 {ratio} Normal [facility] ([place]) Comment on above: Result Comment: MEN WOMEN 1/2 Average Risk 1.00 1.47 Average Risk 3.55 3.22 2X Average Risk 6.25 5.03 3X Average Risk 7.99 6.14 Performed By: #### 9 4500-6 #### [facility] [address] [place] [address] Triglyceride [Mass/Vol] 167 mg/dL Normal 41-189 [facility] ([place]) Comment on above: Performed By: #### 9 4500-6 #### [facility] [address] [place] [address] Magnesium Bld-mCncon 023 Magnesium (Bld) [Mass/Vol] 1.7 mEq/L Normal 1.6-2.6 [facility] ([place]) Comment on above: Performed By: #### 6 30-4 #### [facility] [address] [place] [address] Prothrombin Time on Coumadin on 06-01-2022 INR Coag (PPP) [Relative time] 1.32 {INR} Low 2.00-3.50 [facility] ([place]) Comment on above: Performed By: #### 9 4500-6 #### [facility] [address] [place] [address] Serum or plasma cholesterol in LDL measurement (mass/volume)Ordered By: Naresh Sainz on 06-01-2022 Cholesterol in LDL [Mass/Vol] 48 mg/dL <128 [facility] Serum or plasma cholesterol measurement (mass/volume)Ordered By: Naresh Sainz on 06-01-2022 Cholesterol [Mass/Vol] 97 mg/dL 140-200 [facility] Serum or plasma high density lipoprotein (HDL) cholesterol measurementOrdered By: Naresh Sainz on 06-01-2022 Cholesterol in HDL [Mass/Vol] 28 mg/dL 29-71 [facility] Serum or plasma low density lipoprotein (LDL) cholesterol/high density lipoprotein (HOrdered By: Naresh Sainz on 06-01-2022 Cholesterol in LDL/Cholesterol in HDL [Mass ratio] 1.7 {ratio} [facility] Comment on above: MEN WOMEN1/2 Average Risk 1.00 1.47Average Risk 3.55 3.222X Average Risk 6.25 5.033X Average Risk 7.99 6.14 Serum or plasma thyroid stim ulating hormone (TSH) measurementOrdered By: Naresh Sainz on 06-01-2022 TSH Qn 3.49 uIU/mL 0.34-5.60 [facility] Serum or plasma triglyceride measurement (mass/volume)Ordered By: Naresh Sainz on 06-01-2022 Triglyceride [Mass/Vol] 167 mg/dL 41-189 [facility] TSH SerPl-aCncon 06-01-2022 TSH Qn 3.49 uIU/mL Normal 0.34-5.60 [facility] ([place]) Comment on above: Performed By: #### 9 4500-6 #### [facility] [address] [place] [address] Whole blood estimated averag e glucose determination by estimation from glycated hemoglobin (mass/voluOrdered By: Naresh Sainz on 06-01-2022 Average glucose Estimated from glycated hemoglobin (Bld) [Mass/Vol] 235 mg/dL [facility] ALT (SGPT) ser/plasOrdered B y: Thompson Hayden on 05-31-2022 ALT [Catalytic activity/Vol] 23 U/L 10-63 [facility] Albumin [Mass/volume] in Ser um or PlasmaOrdered By: Thompson Hayden on 05-31-2022 Albumin [Mass/Vol] 3.2 g/dL 3.4-4.8 [facility] Albumin/Globulin [Mass Ratio ] in Serum or PlasmaOrdered By: Thompson Hayden on 05-31-2022 Albumin/Globulin [Mass ratio] 0.8 {ratio} 1.1-2.2 [facility] Alkaline phosphatase [Enzyma tic activity/volume] in Serum or PlasmaOrdered By: Thompson Hayden on 05-31-2022 ALP [Catalytic activity/Vol] 72 U/L 42-121 [facility] Appearance urOrdered By: Jose Hayden on 05-31-2022 Appearance (U) Cloudy [facility] Aspartate aminotransferase [ Enzymatic activity/volume] in Serum or PlasmaOrdered By: Thompson Hayden on 05-31-2022 AST [Catalytic activity/Vol] 22 U/L 10-41 [facility] Automated leukocyte clumps c ount in urine sediment (number/area)Ordered By: Thompson Hayden on 05-31-2022 Leukocyte clumps Auto (Urine sed) [#/Area] Moderate /HPF NONE SEEN [facility] Automated urine sediment bud ding yeast count by microscopy (number/high power field)Ordered By: Thompson Hayden on 05-31-2022 Yeast.budding LM.HPF (Urine sed) [#/Area] Few /HPF NONE [facility]EN [facility] [facility] [Presence] in Urine sediment by Light microscopyOrdered By: Thompson Hayden on 05-31-2022 Bacteria LM Ql (Urine sed) 1+ /HPF NONE SEEN [facility] Bilirubin.total [Mass/volume ] in Serum or PlasmaOrdered By: Thompson Hayden on 05-31-2022 Bilirubin [Mass/Vol] 0.8 mg/dL 0.3-1.5 [facility] Blood Cultureon 05-31-2022 Bacteria identified Anaer+Aer cx Nom (Unsp spec) Bacteria Spec Anaerobe+Aerobe Cult NO GROWTH 5 DAYS Normal [facility] ([place]) Comment on above: Performed By: #### 2 1020-3 #### [facility] [address] [place] [address] CBC W/ Auto Diffon 3 Basophils (Bld) [#/Vol] 0.0 10*3/uL Normal 0.00-0.20 [facility] ([place]) Comment on above: Performed By: #### 9 4500-6 #### [facility] [address] [place] [address] Basophils/100 WBC (Bld) 0.7 % Normal 0.0-1.5 [facility] ([place]) Comment on above: Performed By: #### 9 4500-6 #### [address] [address] Eosinophils (Bld) [#/Vol] 0.2 10*3/uL Normal 0.00-0.33 [facility] ([place]) Comment on above: Performed By: #### 9 4500-6 #### [address] [address] Eosinophils/100 WBC (Bld) 2.9 % Normal 0.0-3.0 [facility] ([place] Comment on above: Performed By: #### 9 4500-6 #### [facility] [address] [place] [address] Erythrocyte distribution width (RBC) [Ratio] 14.7 % High 10.9-14.3 [facility] ([place] Comment on above: Performed By: #### 9 4500-6 #### [address] [address] Hematocrit (Bld) [Volume fraction] 37.6 % Low 41.0-50.0 [facility] ([place] Comment on above: Performed By: #### 9 4500-6 #### [address] [address] Hemoglobin (Bld) [Mass/Vol] 12.6 g/dL Low 13.5-16.5 [facility] ([place] Comment on above: Performed By: #### 9 4500-6 #### [facility] [address] [place] [address] Lymphocytes Auto (Unsp spec) [#/Vol] 1.4 10*3/uL Normal 1.10-4.80 [facility] ([place]) Comment on above: Performed By: #### 9 4500-6 #### [facility] [address] [place] [address] Lymphocytes/100 WBC (Bld) 19.9 % Low 24.0-44.0 [facility] ([place] Comment on above: Performed By: #### 9 4500-6 #### [facility] [address] [place] [address] MCH (RBC) [Entitic mass] 28.9 pg Normal 28.0-34.0 [facility] ([place]) Comment on above: Performed By: #### 9 4500-6 #### [facility] [address] [place] [address] MCHC (RBC) [Mass/Vol] 33.5 g/dL Normal 33.0-37.0 [facility] ([place]) Comment on above: Performed By: #### 9 4500-6 #### [facility] [address] [place] [address] MCV (RBC) [Entitic vol] 86.3 fL Normal 80.0-100.0 [facility] ([place] Comment on above: Performed By: #### 9 4500-6 #### [address] [address] Monocytes (Bld) [#/Vol] 0.5 10*3/uL Normal 0.20-0.70 [facility] ([place] Comment on above: Performed By: #### 9 4500-6 #### [facility] [address] [place] [address] Monocytes/100 WBC (Bld) 7.2 % Normal 3.4-9.0 [facility] ([place] Comment on above: Performed By: #### 9 4500-6 #### [address] [address] Neutrophils (Bld) [#/Vol] 4.9 10*3/uL Normal 1.83-8.70 [facility] ([place]) Comment on above: Performed By: #### 9 4500-6 #### [facility] [address] [place] [address] Neutrophils/100 WBC (Bld) 69.3 % Normal 40.0-74.0 [facility] ([place] Comment on above: Performed By: #### 9 4500-6 #### [facility] [address] [place] [address] Platelet mean volume (Bld) [Entitic vol] 6.6 fL Low 7.4-10.4 [facility] ([place] Comment on above: Performed By: #### 9 4500-6 #### [facility] [address] [place] [address] Platelets (Bld) [#/Vol] 147 10*3/uL Low 150-450 [facility] ([place] Comment on above: Performed By: #### 9 4500-6 #### [facility] [address] [place] [address] RBC (Bld) [#/Vol] 4.36 10*6/uL Low 4.50-5.50 [facility] ([place]) Comment on above: Performed By: #### 9 4500-6 #### [address] [address] WBC (Bld) [#/Vol] 7.1 10*3/uL Normal 4.5-11.0 [facility] ([place]) Comment on above: Performed By: #### 9 4500-6 #### [facility] [address] [place] [address] CO2 (BldV) [Moles/Vol]Ordere d By: Thompson Hayden on 05-31-2022 CO2 [Moles/Vol] 28.6 mmol/L [facility] CT chest wo conon 05-31-2022 CT chest wo con [facility] [address] [place] [address] CT Scan Report Signed Patient: CHARLI PORRAS R#: [id number] : 1950 Acct:[id number] Age/Sex: 72 / M Admit Date: 05/31/22 Loc: 2T 2014-[address]: Naresh Sainz DO Ordering Physician: Naresh Sainz DO Date of Service: 05/31/22 Procedure(s): CT chest wo con Accession Number(s): [id number] cc: Naresh Sainz DO INDICATION: Shortness of breath for several months. Cough. Additional History: Tracheostomy. TECHNIQUE: CT of the chest was performed without contrast. Automated mA/kV exposure control was utilized and patient examination was performed in strict accordance with principles of ALARA. RADIATION AMOUNT: 557 mGy-cm. COMPARISON: Portable CXR 05/31/2022. CT AP 04/20/2022. FINDINGS: The heart is normal in size without pericardial effusion. Thoracic lymph nodes are not enlarged. Atherosclerosis of the coronary arteries is present. There is no pleural effusion, pleural thickening, or pneumothorax. The airways are patent. Mild atelectatic changes are present.. Upper abdomen demonstrates no acute pathology. IVC filter noted. There are no acute fractures. No suspect osseous lesion demonstrated. Senescent changes of the thoracic spine are present. Postoperative changes of the cervical spine are present. IMPRESSION: 1. No acute thoracic findings. 2. Atherosclerosis of the coronary arteries is present. Signed by Radu Carvalho II, MD Dictated By: Radu Carvalho MD DD/ 09 Signed By: Radu Carvalho MD 05/31/222125 Point Of Care Specialist: Normal [facility] ([place]) Comprehensive metabolic 2000 panelon 05-31-2022 Albumin [Mass/Vol] 3.2 g/dL Low 3.4-4.8 [facility] ([place]) Comment on above: Performed By: #### 4 1653-7 #### [facility] [address] [place] [address] Albumin/Globulin [Mass ratio] 0.8 {ratio} Low 1.1-2.2 [facility] ([place]) Comment on above: Performed By: #### 4 1653-7 #### [facility] [address] [place] [address] ALP [Catalytic activity/Vol] 72 U/L Normal 42-121 [facility] ([place]) Comment on above: Performed By: #### 4 1653-7 #### [facility] [address] [place] [address] ALT [Catalytic activity/Vol] 23 U/L Normal 10-63 [facility] ([place] Comment on above: Performed By: #### 4 1653-7 #### [facility] [address] [place] [address] Anion gap [Moles/Vol] 10.0 mmol/L Normal 3-11 [facility] ([place]) Comment on above: Performed By: #### 4 1653-7 #### [facility] [address] [place] [address] AST [Catalytic activity/Vol] 22 U/L Normal 10-41 [facility] ([place]) Comment on above: Performed By: #### 4 1653-7 #### [facility] [address] [place] [address] Bilirubin [Mass/Vol] 0.8 mg/dL Normal 0.3-1.5 [facility] ([place]) Comment on above: Performed By: #### 4 1653-7 #### [facility] [address] [place] [address] Calcium [Mass/Vol] 8.8 mg/dL Normal 8.5-10.5 [facility] ([place]) Comment on above: Performed By: #### 4 1653-7 #### [facility] [address] [place] [address] Chloride [Moles/Vol] 99 mmol/L Normal 98-107 [facility] ([place]) Comment on above: Performed By: #### 4 1653-7 #### [facility] [address] [place] [address] CO2 [Moles/Vol] 25 mmol/L Normal 21-31 [facility] ([place] Comment on above: Performed By: #### 4 1653-7 #### [address] [address] Creatinine [Moles/Vol] 1.2 mg/dL Normal 0.6-1.3 [facility] ([place]) Comment on above: Performed By: #### 4 1653-7 #### [address] [address] Creatinine and Glomerular filtration rate.predicted panel (S/P/Bld) 72 mL/min Normal >60 [facility] ([place]) Comment on above: Performed By: #### 4 1653-7 #### [facility] [address] [place] [address] GFR/1.73 sq M.predicted among non-blacks MDRD (S/P/Bld) [Vol rate/Area] 59 mL/min/{1.73_m2} Normal >60 [facility] ([place]) Comment on above: Performed By: #### 4 1653-7 #### [address] [address] Globulin (S) [Mass/Vol] 3.8 g/dL Normal 1.9-3.9 [facility] ([place]) Comment on above: Performed By: #### 4 1653-7 #### [address] [address] Glucose [Mass/Vol] 195 mg/dL High 70-99 [facility] ([place]) Comment on above: Performed By: #### 4 1653-7 #### [facility] [address] [place] [address] Potassium [Moles/Vol] 3.6 mmol/L Normal 3.6-5.0 [facility] ([place]) Comment on above: Performed By: #### 4 1653-7 #### [facility] [address] [place] [address] Protein [Mass/Vol] 7.0 g/dL Normal 5.9-7.8 [facility]) Comment on above: Performed By: #### 4 1653-7 #### [facility] [address] [place] [address] Sodium [Moles/Vol] 134 mmol/L Low 135-145 [facility] ([place]) Comment on above: Performed By: #### 4 1653-7 #### [facility] [address] [place] [address] Urea nitrogen [Mass/Vol] 17 mg/dL Normal 6-20 [facility] ([place]) Comment on above: Performed By: #### 4 1653-7 #### [facility] [address] [place] [address] Detection in urine of either or both bilirubin and urobilinogenOrdered By: Thompson Hayden on 05-31-2022 Bilirubin+Urobilinogen Ql (U) Negative NEGATIVE [facility] Gas panel (BldV)on CO2 (BldV) [Partial pressure] 48 mm[Hg] Normal 39-55 [facility] ([place]) Comment on above: Performed By: #### C D #### [facility] [address] [place] [address] CO2 [Moles/Vol] 28.6 mmol/L Normal 23-29 [facility] ([place]) Comment on above: Performed By: #### C D #### [facility] [address] [place] [address] HCO3 (Bld) [Moles/Vol] 27.1 mmol/L Normal 22-28 [facility] ([place]) Comment on above: Performed By: #### C D #### [facility] [address] [place] [address] Oxygen (BldV) [Partial pressure] 62.0 mm[Hg] High 30-50 [facility] ([place]) Comment on above: Performed By: #### C D #### [facility] [address] [place] [address] pH (BldV) 7.36 [pH] Normal 7.31-7.42 [facility] ([place]) Comment on above: Performed By: #### C D #### [facility] [address] [place] [address] VBG Oxygen Saturation 90 % High 50-85 [facility] ([place]) Comment on above: Performed By: #### C D #### [facility] [address] [place] [address] Glucose Glucometer (BldC) [M ass/Vol]on 05-31-2022 Glucose [Mass/Vol] 264 mg/dL Normal 70-99 [facility] ([place]) Comment on above: Performed By: #### 6 30-4 #### [facility] [address] [place] [address] Glucose [Mass/volume] in Uri ne by Automated test stripOrdered By: Thompson Hayden on 05-31-2022 Glucose Auto test strip (U) [Mass/Vol] 1000 mg/dL NEGATIVE [facility] HCO3 (BldV) [Moles/Vol]Order ed By: Thompson Hayden on 05-31-2022 HCO3 (Bld) [Moles/Vol] 27.1 mmol/L 22-28 [facility] Influenza A,B [facility] by PCRon 05-31-2022 FLUBV Ag Ql (Unsp spec) Negative Normal Negative [facility] ([place]) Comment on above: Performed By: #### 4 1653-7 #### [facility] [address] [place] [address] Rapid Flu A Negative Normal Negative [facility] ([place]) Comment on above: Performed By: #### 4 1653-7 #### [facility] [address] [place] [address] Lactate (Bld) [Moles/Vol]on 05-31-2022 Lactate [Moles/Vol] 1.7 mmol/L Normal 0.5-2.0 [facility] ([place]) Comment on above: Performed By: #### C D #### [facility] [address] [place] [address] Lactate (Bld) [Moles/Vol]Ord ered By: Thompson Hayden on 05-31-2022 Lactate [Moles/Vol] 1.7 mmol/L 0.5-2.0 [facility] Leukocytes detection in urin e sediment by light microscopyOrdered By: Thompson Hayden on 05-31-2022 WBC LM Ql (Urine sed) >100 /HPF NONE SEEN [facility] Magnesium Bld-mCncon 023 Magnesium (Bld) [Mass/Vol] 1.6 mEq/L Normal 1.6-2.6 [facility] ([place]) Comment on above: Performed By: #### 4 1653-7 #### [facility] [address] [place] [address] Microscopic examination of u rineOrdered By: Thompson Hayden on 05-31-2022 Microscopic observation LM Nom (Urine sed) Yes [facility] Microscopic observation LM N om (Urine sed)on 05-31-2022 Bacteria LM Ql (Urine sed) 1+ /HPF Normal NONE SEEN [facility] ([place]) Comment on above: Order Comment: Urine Collect Clean Catch Performed By: #### 4 1653-7 #### [address] [address] Yeast.budding LM.HPF (Urine sed) [#/Area] FEW Normal NONE SEEN [facility] ([place]) Comment on above: Order Comment: Urine Collect Clean Catch Performed By: #### 4 1653-7 #### [address] [address] Leukocyte clumps Auto (Urine sed) [#/Area] MODERATE Normal NONE SEEN [facility] ([place]) Comment on above: Order Comment: Urine Collect Clean Catch Performed By: #### 4 1653-7 #### [facility] [address] [place] [address] RBC Ql (U) 20-50 Normal NONE SEEN [facility] ([place]) Comment on above: Order Comment: Urine Collect Clean Catch Performed By: #### 4 1653-7 #### [address] [address] Transitional cells LM Ql (Urine sed) OCCASIONAL Normal NONE SEEN [facility] ([place]) Comment on above: Order Comment: Urine Collect Clean Catch Performed By: #### 4 1653-7 #### [address] [address] WBC LM Ql (Urine sed) >100 Normal NONE SEEN [facility] ([place]) Comment on above: Order Comment: Urine Collect Clean Catch Performed By: #### 4 1653-7 #### [facility] [address] [place] [address] Natriuretic peptide B [Mass/ Vol]on 05-31-2022 Natriuretic peptide B (Bld) [Mass/Vol] 15 pg/mL Normal 0-100 [facility] ([place]) Comment on above: Performed By: #### 4 1653-7 #### [address] [address] Natriuretic peptide B [Mass/ Vol]Ordered By: Thompson Hayden on 05-31-2022 Natriuretic peptide B (Bld) [Mass/Vol] 15 pg/mL 0-100 [facility] No Panel InformationOrdered By: Thompson Hayden on 05-31-2022 Urine Culture Reflexed Reflexed to culture [facility] Comment on above: A Urine Culture has been added to this specimen. Influenza Type A (Rapid) Negative Negative [facility] Procalcitonin < 0.05 ng/mL 0.10-0.50 [facility] Comment on above: *PROCALCITONIN INTER PRETATION*Less than 0.5: Low risk for systemic infection.0.5 to 2.0: Moderate risk for systemic infection.Greater than 2.0: High risk for systemic infection.10.0 or greater: Likelihood of severe sepsis or septic shock. Venous Blood Oxygen Saturation 90 % 50-85 [facility] Procalcitoninon 05-31-2022 Procalcitonin < 0.05 Normal 0.10-0.50 [facility] ([place]) Comment on above: Result Comment: *PRO CALCITONIN INTERPRETATION* Less than 0.5: Low risk for systemic infection. 0.5 to 2.0: Moderate risk for systemic infection. Greater than 2.0: High risk for systemic infection. 10.0 or greater: Likelihood of severe sepsis or septic shock. Performed By: #### 4 1653-7 #### [facility] [address] [place] [address] Prothrombin Time on Coumadin on 05-31-2022 INR Coag (PPP) [Relative time] 1.72 {INR} Low 2.00-3.50 [facility] ([place]) Comment on above: Performed By: #### 6 30-4 #### [facility] [address] [place] [address] RBC LM Ql (Urine sed)Ordered By: Thompson Hayden on 05-31-2022 RBC Ql (U) 20-50 /HPF NONE SEEN [facility] Rapid influenza B antigen de tectionOrdered By: Thompson Hayden on 05-31-2022 FLUBV Ag Ql (Unsp spec) Negative Negative [facility] Respiratory specimen COVID-1 9 virus RNA detectionOrdered By: Thompson Hayden on 05-31-2022 SARS-CoV-2 (COVID-19) RNA LIV+probe Ql (Resp) [facility] SARS-CoV2 PCRon 05-31-2022 SARS-CoV-2 (COVID-19) RNA LIV+probe Ql (Resp) SARS-CoV-2 RNA Resp Ql LIV+probe SARS-CoV-2 Result SARS-CoV-2 RNA Not Detected Comment 1 *EUA - In Vitro Diagnostic Use Under Emergency Use Comment 1.1 Authorization. Comment 2 *This test has not been FDA cleared or approved. Comment 3 *This test has been authorized by the FDA under an Comment 3.1 EUA for use by authorized laboratories. Comment 4 *This test has been authorized only for the detection Comment 4.1 of nucleic acid from SARS-CoV-2, not for any other Comment 4.2 viruses or pathogens. Comment 5 *This test is only authorized for the duration of the Comment 5.1 declaration that circumstances exist justifying the Comment 5.2 authorization of emergency use of in vitro diagnostic Comment 5.3 tests for detection and/or diagnosis of COVID-19 under Comment 5.4 Section 564(b)(1) of the Act, 21 U.S.C. 360bb-3(b)(1), Comment 5.5 unless the authorization is terminated or revoked sooner. Normal [facility] ([place]) Comment on above: Performed By: #### 9 4500-6 #### [facility] [address] [place] [address] Serum globulin measurement ( mass/volume)Ordered By: Thompson Hayden on 05-31-2022 Globulin (S) [Mass/Vol] 3.8 g/dL 1.9-3.9 [facility] Specific gravity of UrineOrd ered By: Thompson Hayden on 05-31-2022 Specific gravity (U) [Rel density] 1.020 1.001-1.035 [facility] Total protein bloodOrdered B y: Thompson Hayden on 05-31-2022 Protein [Mass/Vol] 7.0 g/dL 5.9-7.8 [facility] Transitional cells detection in urine sediment by light microscopyOrdered By: Thompson Hayden on 05-31-2022 Transitional cells LM Ql (Urine sed) Occasional /HPF NONE SEEN [facility] Troponin I SerPl-mCncon 05-05 Troponin I.cardiac [Mass/Vol] 0.04 ng/mL High <0.03 [facility] ([place]) Comment on above: Performed By: #### 4 1653-7 #### [facility] [address] [place] [address] Troponin I ser/plasOrdered B y: Thompson Barrytig on 05-31-2022 Troponin I.cardiac [Mass/Vol] 0.04 ng/mL <0.03 [facility] Urinalysison 05-31-2022 Bilirubin+Urobilinogen Ql (U) Negative Normal NEGATIVE [facility] ([place]) Comment on above: Order Comment: Urine Collect Clean Catch Performed By: #### 4 1653-7 #### [facility] [address] [place] [address] Ketones Ql (U) TRACE Abnormal NEGATIVE [facility] ([place]) Comment on above: Order Comment: Urine Collect Clean Catch Performed By: #### 4 1653-7 #### [facility] [address] [place] [address] Nitrate Ql (U) Negative Normal NEGATIVE [facility] ([place] Comment on above: Order Comment: Urine Collect Clean Catch Performed By: #### 4 1653-7 #### [facility] [address] [place] [address] RBC Ql (U) SMALL Abnormal NEGATIVE [facility] ([place]) Comment on above: Order Comment: Urine Collect Clean Catch Performed By: #### 4 1653-7 #### [facility] [address] [place] [address] Urobilinogen (U) [Mass/Vol] Negative Normal NEGATIVE [facility] ([place] Comment on above: Order Comment: Urine Collect Clean Catch Performed By: #### 4 1653-7 #### [facility] [address] [place] [address] WBC Visual Ql (U) MODERATE Abnormal NEGATIVE [facility] ([place] Comment on above: Order Comment: Urine Collect Clean Catch Performed By: #### 4 1653-7 #### [facility] [address] [place] [address] Appearance (U) CLOUDY Normal [facility] ([place]) Comment on above: Order Comment: Urine Collect Clean Catch Performed By: #### 4 1653-7 #### [facility] [address] [place] [address] Color (U) YELLOW Normal [facility] ([place]) Comment on above: Order Comment: Urine Collect Clean Catch Performed By: #### 4 1653-7 #### [facility] [address] [place] [address] Glucose Auto test strip (U) [Mass/Vol] 1000 mg/dL Abnormal NEGATIVE [facility] ([place]) Comment on above: Order Comment: Urine Collect Clean Catch Performed By: #### 4 1653-7 #### [facility] [address] [place] [address] pH (U) 6.0 [pH] Normal 4.6-8.0 [facility] ([place]) Comment on above: Order Comment: Urine Collect Clean Catch Performed By: #### 4 1653-7 #### [facility] [address] [place] [address] Protein Auto test strip Ql (U) 30 mg/dL Abnormal NEGATIVE [facility] ([place] Comment on above: Order Comment: Urine Collect Clean Catch Performed By: #### 4 1653-7 #### [address] [address] Specific gravity (U) [Rel density] 1.020 Normal 1.001-1.035 [facility] ([place]) Comment on above: Order Comment: Urine Collect Clean Catch Performed By: #### 4 1653-7 #### [facility] [address] [place] [address] Urine blood detectionOrdered By: Thompson Hayden on 05-31-2022 RBC Ql (U) Small NEGATIVE [facility] Urine colorOrdered By: Owen Hayden on 05-31-2022 Color (U) Yellow [facility] Urine ketones detectionOrder ed By: Thompson Hayden on 05-31-2022 Ketones Ql (U) Trace mg/dL NEGATIVE [facility] Urine leukocytes detection b y microscopyOrdered By: Thompson Hayden on 05-31-2022 WBC Visual Ql (U) Moderate NEGATIVE [facility] Urine nitrate detectionOrder ed By: Thompson Hayden on 05-31-2022 Nitrate Ql (U) Negative NEGATIVE [facility] Urine pHOrdered By: Thompson springer on 05-31-2022 pH (U) 6.0 [pH] 4.6-8.0 [facility] Urine protein detection by a utomated test stripOrdered By: Thompson Hayden on 05-31-2022 Protein Auto test strip Ql (U) 30 mg/dL NEGATIVE [facility] Urobilinogen Test strip (U) [Mass/Vol]Ordered By: Thompson Hayden on 05-31-2022 Urobilinogen (U) [Mass/Vol] Negative NEGATIVE [facility] Venous blood pH measurementO rdered By: Thompson Hayden on 05-31-2022 pH (BldV) 7.36 [pH] 7.31-7.42 [facility] Venous blood partial pressur e of carbon dioxide measurementOrdered By: Thompson Hayden on 05-31-2022 CO2 (BldV) [Partial pressure] 48 mm[Hg] 39-55 [facility] Venous blood partial pressur e of oxygen measurementOrdered By: Thompson Hayden on 05-31-2022 Oxygen (BldV) [Partial pressure] 62.0 mm[Hg] 30-50 [facility] XR chest 1V portableon 05-31 XR chest 1V portable [facility] [address] [place] [address] XRay Report Signed Patient: CHARLI PORRAS [place]#: [id number] : 1950 Acct:[id number] Age/Sex: 72 / M Admit Date: 05/31/22 Loc: ER Attending Dr: Ordering Physician: Thompson Hayden MD Date of Service: 05/31/22 Procedure(s): XR chest 1V portable Accession Number(s): [id number] cc: Thompson Hayden MD INDICATION: Shortness of breath. Patient had mobile CXR yesterday and was told he had a collapsed left lung. TECHNIQUE: Frontal chest was obtained at 14:55 hours. COMPARISON: 04/22/2022 XR Chest FINDINGS: The cardiomediastinal silhouette is normal in size. There is no consolidation or atelectasis in either lung. There are no pleural effusions. There is no pneumothorax. No acute osseous process. IMPRESSION: No acute process. Signed by Garcia Reeves MD Dictated By: Garcia Reeves MD DD/ 1507 Signed By: Garcia Reeves MD 05/31/22 1510 Point Of Care Specialist: Normal [facility] ([place]) Aerobic and anaerobic cultur e blood cultureOrdered By: Thompson Hayden on 04-25-2022 Bacteria identified Anaer+Aer cx Nom (Unsp spec) NO GROWTH 5 DAYS [facility] Gabapentin SerPl-sCncon - Gabapentin [Moles/Vol] 9.4 ug/mL Normal 4.0-16.0 [facility] ([place]) Comment on above: Result Comment: Dete ction Limit = 1.0 Performed at: [address] [id number] Director Nursing Service: Martha Gaming MD, Phone: [phone] Performed By: #### 6 30-4 #### [facility] [address] [place], [place] [address] Reflex Urn Culton 04-24-2022 Bacteria identified Cx Nom (U) ORGANISM ID: 1.1 - Presumptive Callie glabrata [place] Count 50,000-100,000 CFU/ml Normal [facility] ([place]) Comment on above: Performed By: #### 6 30-4 #### [facility] [address] [place], [place] [id number] Urine culture routineOrdered By: Judy Boo on 04-24-2022 Bacteria identified Cx Nom (U) Presumptive Callie glabrata [facility] ALT (SGPT) ser/plasOrdered B y: Judy Pompura on 04-23-2022 ALT [Catalytic activity/Vol] 39 U/L 10-63 [facility] Absolute lymphocyte countOrd ered By: Judy Pompura on 04-23-2022 Lymphocytes Auto (Unsp spec) [#/Vol] 1.3 10*3/uL 1.10-4.80 [facility] Albumin [Mass/volume] in Ser um or PlasmaOrdered By: Judy Pompura on 04-23-2022 Albumin [Mass/Vol] 3.1 g/dL 3.4-4.8 [facility] Albumin/Globulin [Mass Ratio ] in Serum or PlasmaOrdered By: Judy Pompura on 04-23-2022 Albumin/Globulin [Mass ratio] 0.9 {ratio} 1.1-2.2 [facility] Alkaline phosphatase [Enzyma tic activity/volume] in Serum or PlasmaOrdered By: Judy Pompura on 04-23-2022 ALP [Catalytic activity/Vol] 80 U/L 42-121 [facility] Aspartate aminotransferase [ Enzymatic activity/volume] in Serum or PlasmaOrdered By: Judy Pompura on 04-23-2022 AST [Catalytic activity/Vol] 42 U/L 10-41 [facility] Basophils Auto (Bld) [#/Vol] Ordered By: Judy Pompura on 04-23-2022 Basophils (Bld) [#/Vol] 0.1 10*3/uL 0.00-0.20 [facility] Basophils/100 WBC Auto (Bld) Ordered By: Judy Pompura on 04-23-2022 Basophils/100 WBC (Bld) 1.0 % 0.0-1.5 [facility] Bilirubin.total [Mass/volume ] in Serum or PlasmaOrdered By: Judy Pompura on 04-23-2022 Bilirubin [Mass/Vol] 1.1 mg/dL 0.3-1.5 [facility] CBC W/ Auto Diffon Basophils (Bld) [#/Vol] 0.1 10*3/uL Normal 0.00-0.20 [facility] ([place]) Comment on above: Performed By: #### 9 4500-6 #### [facility] [address] [place] [address] Basophils/100 WBC (Bld) 1.0 % Normal 0.0-1.5 [facility] ([place]) Comment on above: Performed By: #### 9 4500-6 #### [facility] [address] [place] [address] Eosinophils (Bld) [#/Vol] 0.3 10*3/uL Normal 0.00-0.33 [facility] ([place]) Comment on above: Performed By: #### 9 4500-6 #### [facility] [address] [place] [address] Eosinophils/100 WBC (Bld) 4.7 % High 0.0-3.0 [facility] ([place]) Comment on above: Performed By: #### 9 4500-6 #### [address] [address] Erythrocyte distribution width (RBC) [Ratio] 13.5 % Normal 10.9-14.3 [facility] ([place]) Comment on above: Performed By: #### 9 4500-6 #### [facility] [address] [place] [address] Hematocrit (Bld) [Volume fraction] 39.7 % Low 41.0-50.0 [facility] ([place]) Comment on above: Performed By: #### 9 4500-6 #### [facility] [address] [place] [address] Hemoglobin (Bld) [Mass/Vol] 13.3 g/dL Low 13.5-16.5 [facility] ([place]) Comment on above: Performed By: #### 9 4500-6 #### [address] [address] Lymphocytes Auto (Unsp spec) [#/Vol] 1.3 10*3/uL Normal 1.10-4.80 [facility] ([place]) Comment on above: Performed By: #### 9 4500-6 #### [facility] [address] [place] [address] Lymphocytes/100 WBC (Bld) 18.2 % Low 24.0-44.0 [facility] ([place]) Comment on above: Performed By: #### 9 4500-6 #### [facility] [address] [place] [address] MCH (RBC) [Entitic mass] 29.4 pg Normal 28.0-34.0 [facility] ([place]) Comment on above: Performed By: #### 9 4500-6 #### [address] [address] MCHC (RBC) [Mass/Vol] 33.5 g/dL Normal 33.0-37.0 [facility] ([place]) Comment on above: Performed By: #### 9 4500-6 #### [facility] [address] [place] [address] MCV (RBC) [Entitic vol] 88.0 fL Normal 80.0-100.0 [facility] ([place]) Comment on above: Performed By: #### 9 4500-6 #### [facility] [address] [place] [address] Monocytes (Bld) [#/Vol] 0.7 10*3/uL Normal 0.20-0.70 [facility] ([place]) Comment on above: Performed By: #### 9 4500-6 #### [facility] [address] [place] [address] Monocytes/100 WBC (Bld) 10.1 % High 3.4-9.0 [facility] ([place]) Comment on above: Performed By: #### 9 4500-6 #### [address] [address] Neutrophils (Bld) [#/Vol] 4.6 10*3/uL Normal 1.83-8.70 [facility] ([place]) Comment on above: Performed By: #### 9 4500-6 #### [address] [address] Neutrophils/100 WBC (Bld) 66.0 % Normal 40.0-74.0 [facility] ([place]) Comment on above: Performed By: #### 9 4500-6 #### [address] [address] Platelet mean volume (Bld) [Entitic vol] 7.6 fL Normal 7.4-10.4 [facility] ([place]) Comment on above: Performed By: #### 9 4500-6 #### [address] [address] Platelets (Bld) [#/Vol] 163 10*3/uL Normal 150-450 [facility] ([place]) Comment on above: Performed By: #### 9 4500-6 #### [address] [address] RBC (Bld) [#/Vol] 4.51 10*6/uL Normal 4.50-5.50 [facility] ([place]) Comment on above: Performed By: #### 9 4500-6 #### [address] [address] WBC (Bld) [#/Vol] 7.0 10*3/uL Normal 4.5-11.0 [facility] ([place]) Comment on above: Performed By: #### 9 4500-6 #### [address] [address] Carbon dioxide, total [Moles /volume] in Serum or PlasmaOrdered By: Judy Boo on 04-23-2022 CO2 [Moles/Vol] 23 mmol/L [facility] Chloride [Moles/volume] in S maricel or PlasmaOrdered By: Judy Boo on 04-23-2022 Chloride [Moles/Vol] 102 mmol/L 98-107 [facility] Comprehensive metabolic 2000 panelon 04-23-2022 Albumin [Mass/Vol] 3.1 g/dL Low 3.4-4.8 [facility] ([place]) Comment on above: Performed By: #### 3 2693-4 #### [facility] [address] [place] [address] Albumin/Globulin [Mass ratio] 0.9 {ratio} Low 1.1-2.2 [facility] ([place]) Comment on above: Performed By: #### 3 2693-4 #### [facility] [address] [place] [address] ALP [Catalytic activity/Vol] 80 U/L Normal 42-121 [facility] ([place]) Comment on above: Performed By: #### 3 2693-4 #### [facility] [address] [place] [address] ALT [Catalytic activity/Vol] 39 U/L Normal 10-63 [facility] ([place]) Comment on above: Performed By: #### 3 2693-4 #### [facility] [address] [place] [address] Anion gap [Moles/Vol] 10.0 mmol/L Normal 3-11 [facility] ([place]) Comment on above: Performed By: #### 3 2693-4 #### [facility] [address] [place] [address] AST [Catalytic activity/Vol] 42 U/L High 10-41 [facility] ([place]) Comment on above: Performed By: #### 3 2693-4 #### [facility] [address] [place] [address] Bilirubin [Mass/Vol] 1.1 mg/dL Normal 0.3-1.5 [facility] ([place]) Comment on above: Performed By: #### 3 2693-4 #### [facility] [address] [place] [address] Calcium [Mass/Vol] 8.5 mg/dL Normal 8.5-10.5 [facility] ([place]) Comment on above: Performed By: #### 3 2693-4 #### [facility] [address] [place] [address] Chloride [Moles/Vol] 102 mmol/L Normal 98-107 [facility] ([place]) Comment on above: Performed By: #### 3 2693-4 #### [facility] [address] [place] [address] CO2 [Moles/Vol] 23 mmol/L Normal 21-31 [facility] ([place]) Comment on above: Performed By: #### 3 2693-4 #### [facility] [address] [place] [address] Creatinine [Moles/Vol] 1.1 mg/dL Normal 0.6-1.3 [facility] ([place]) Comment on above: Performed By: #### 3 2693-4 #### [facility] [address] [place] [address] Creatinine and Glomerular filtration rate.predicted panel (S/P/Bld) 80 mL/min Normal >60 [facility] ([place]) Comment on above: Performed By: #### 3 2693-4 #### [address] [address] GFR/1.73 sq M.predicted among non-blacks MDRD (S/P/Bld) [Vol rate/Area] 66 mL/min/{1.73_m2} Normal >60 [facility] ([place]) Comment on above: Performed By: #### 3 2693-4 #### [address] [address] Globulin (S) [Mass/Vol] 3.5 g/dL Normal 1.9-3.9 [facility] ([place]) Comment on above: Performed By: #### 3 2693-4 #### [facility] [address] [place] [address] Glucose [Mass/Vol] 244 mg/dL High 70-99 [facility] ([place]) Comment on above: Performed By: #### 3 2693-4 #### [facility] [address] [place] [address] Potassium [Moles/Vol] 3.8 mmol/L Normal 3.6-5.0 [facility] ([place]) Comment on above: Performed By: #### 3 2693-4 #### [address] [address] Protein [Mass/Vol] 6.6 g/dL Normal 5.9-7.8 [facility] ([place]) Comment on above: Performed By: #### 3 2693-4 #### [address] [address] Sodium [Moles/Vol] 135 mmol/L Normal 135-145 [facility] ([place]) Comment on above: Performed By: #### 3 2693-4 #### [address] [address] Urea nitrogen [Mass/Vol] 20 mg/dL Normal 6-20 [facility] ([place]) Comment on above: Performed By: #### 3 2693-4 #### [address] [address] Creatinine and Glomerular fi ltration rate.predicted panel (S/P/Bld)Ordered By: Judy Boo on 04-23-2022 GFR/1.73 sq M.predicted MDRD (S/P/Bld) [Vol rate/Area] 80 mL/min/{1.73_m2} >60 [facility] Eosinophils Auto (Bld) [#/Vo l]Ordered By: Judy Boo on 04-23-2022 Eosinophils (Bld) [#/Vol] 0.3 10*3/uL 0.00-0.33 [facility] Eosinophils/100 WBC Auto (Bl d)Ordered By: Judy Boo on 04-23-2022 Eosinophils/100 WBC (Bld) 4.7 % 0.0-3.0 [facility] Erythrocyte distribution wid th Auto (RBC) [Ratio]Ordered By: Judy Boo on 04-23-2022 Erythrocyte distribution width (RBC) [Ratio] 13.5 % 10.9-14.3 [facility] Estimated glomerular filtrat ion rate (GFR) non- AmericanOrdered By: Judy Boo on 04-23-2022 GFR/1.73 sq M.predicted among non-blacks MDRD (S/P/Bld) [Vol rate/Area] 66 mL/min/{1.73_m2} >60 [facility] Glucose Glucometer (BldC) [M ass/Vol]on 04-23-2022 Glucose [Mass/Vol] 214 mg/dL Normal 70-99 [facility] ([place]) Comment on above: Performed By: #### 9 4500-6 #### [facility] [address] [place] [address] Glucose [Mass/Vol] 360 mg/dL Normal 70-99 [facility] ([place]) Comment on above: Performed By: #### 4 1653-7 #### [facility] [address] [place] [address] Glucose Glucometer (BldC) [M ass/Vol]Ordered By: Verito Devi on 04-23-2022 Glucose [Mass/Vol] 214 mg/dL 70-99 [facility] Hematocrit Auto (Bld) [Volum e fraction]Ordered By: Judy Boo on 04-23-2022 Hematocrit (Bld) [Volume fraction] 39.7 % 41.0-50.0 [facility] Hemoglobin A1con 04-23-2022 Average glucose Estimated from glycated hemoglobin (Bld) [Mass/Vol] 255 mg/dL Normal [facility] ([place]) Comment on above: Performed By: #### 2 1020-3 #### [facility] [address] [place], [place] [address] HbA1c (Bld) [Mass fraction] 10.5 % High 4.0-6.0 [facility] ([place]) Comment on above: Performed By: #### 2 1020-3 #### [facility] [address] [place], [place] [address] Hemoglobin [Mass/volume] in BloodOrdered By: Judy Pompura on 04-23-2022 Hemoglobin (Bld) [Mass/Vol] 13.3 g/dL 13.5-16.5 [facility] Lymphocytes/100 WBC Auto (Bl d)Ordered By: Judy Pompura on 04-23-2022 Lymphocytes/100 WBC (Bld) 18.2 % 24.0-44.0 [facility] MCH Auto (RBC) [Entitic mass ]Ordered By: Judy Pompura on 04-23-2022 MCH (RBC) [Entitic mass] 29.4 pg 28.0-34.0 [facility] MCHC Auto (RBC) [Mass/Vol]Or dered By: Judy Pompura on 04-23-2022 MCHC (RBC) [Mass/Vol] 33.5 g/dL 33.0-37.0 [facility] MCV (mean corpuscular volume ) determinationOrdered By: Judy Pompura on 04-23-2022 MCV (RBC) [Entitic vol] 88.0 fL 80.0-100.0 [facility] Monocytes Auto (Bld) [#/Vol] Ordered By: Judy Pompura on 04-23-2022 Monocytes (Bld) [#/Vol] 0.7 10*3/uL 0.20-0.70 [facility] Monocytes/100 WBC Auto (Bld) Ordered By: Judy Pompura on 04-23-2022 Monocytes/100 WBC (Bld) 10.1 % 3.4-9.0 [facility] Neutrophils Auto (Bld) [#/Vo l]Ordered By: Judy Pompura on 04-23-2022 Neutrophils (Bld) [#/Vol] 4.6 10*3/uL 1.83-8.70 [facility] Neutrophils/100 WBC Auto (Bl d)Ordered By: Judy Pompura on 04-23-2022 Neutrophils/100 WBC (Bld) 66.0 % 40.0-74.0 [facility] No Panel InformationOrdered By: Judy Pompura on 04-23-2022 Anticoagulation Therapy See comment [facility] Comment on above: Suggested Therapy Ra nge: 2.0 - 3.5 Platelet mean volume Auto (B ld) [Entitic vol]Ordered By: Judy Pompura on 04-23-2022 Platelet mean volume (Bld) [Entitic vol] 7.6 fL 7.4-10.4 [facility] Platelet poor plasma interna tional normalized ratio (INR) by coagulation assay (relatOrdered By: Judy Pompura on 04-23-2022 INR Coag (PPP) [Relative time] 2.25 {INR} 2.00-3.50 [facility] Platelets Auto (Bld) [#/Vol] Ordered By: Judy Pompura on 04-23-2022 Platelets (Bld) [#/Vol] 163 10*3/uL 150-450 [facility] Potassium [Moles/volume] in Serum or PlasmaOrdered By: Judy Pompura on 04-23-2022 Potassium [Moles/Vol] 3.8 mmol/L 3.6-5.0 [facility] Prothrombin Time on Coumadin on 04-23-2022 INR Coag (PPP) [Relative time] 2.25 {INR} Normal 2.00-3.50 [facility] ([place]) Comment on above: Performed By: #### 6 30-4 #### [facility] [address] [place] [address] RBC Auto (Bld) [#/Vol]Ordere d By: Judy Pompura on 04-23-2022 RBC (Bld) [#/Vol] 4.51 10*6/uL 4.50-5.50 [facility] Serum globulin measurement ( mass/volume)Ordered By: Judy Ema on 04-23-2022 Globulin (S) [Mass/Vol] 3.5 g/dL 1.9-3.9 [facility] Serum glucose measurement (m ass/volume)Ordered By: Judy Pompura on 04-23-2022 Glucose [Mass/Vol] 244 mg/dL 70-99 [facility] Serum or plasma anion gap de termination (moles/volume)Ordered By: Judy Pompura on 04-23-2022 Anion gap [Moles/Vol] 10.0 mmol/L 3-11 [facility] Serum or plasma calcium maricel urement (mass/volume)Ordered By: Judy Pompura on 04-23-2022 Calcium [Mass/Vol] 8.5 mg/dL 8.5-10.5 [facility] Serum or plasma creatinine m easurement (moles/volume)Ordered By: Judy Kaushikpmayra on 04-23-2022 Creatinine [Moles/Vol] 1.1 mg/dL 0.6-1.3 [facility] Serum or plasma sodium measu rement (moles/volume)Ordered By: Judy Pompura on 04-23-2022 Sodium [Moles/Vol] 135 mmol/L 135-145 [facility] Serum or plasma urea nitroge n measurement (mass/volume)Ordered By: Judy Pompura on 04-23-2022 Urea nitrogen [Mass/Vol] 20 mg/dL 6-20 [facility] Total protein bloodOrdered B y: Judy Pompura on 04-23-2022 Protein [Mass/Vol] 6.6 g/dL 5.9-7.8 [facility] WBC Auto (Bld) [#/Vol]Ordere d By: Judy Pompura on 04-23-2022 WBC (Bld) [#/Vol] 7.0 10*3/uL 4.5-11.0 [facility] Ammonia Spec-mCncon 04-22-20 Ammonia (Unsp spec) [Mass/Vol] 16 umol/L Normal 9-35 [facility] ([place]) Comment on above: Performed By: #### 6 30-4 #### [facility] [address] [place] [address] Ammonia measurement (mass/vo lume)Ordered By: Judyflores Boo on 04-22-2022 Ammonia (Unsp spec) [Mass/Vol] 16 umol/L 9-35 [facility] Appearance urOrdered By: Karina Faulkneradelfo on 04-22-2022 Appearance (U) Clear [facility] Automated urine sediment bud ding yeast count by microscopy (number/high power field)Ordered By: Judy Boo on 04-22-2022 Yeast.budding LM.HPF (Urine sed) [#/Area] Large /HPF NONE SEEN [facility] Automated urine white blood cell countOrdered By: Judyflores Boo on 04-22-2022 WBC Auto (U) [#/Vol] >100 /HPF NONE SEEN [facility] Basic Metabolic Panelon 12-2021 Anion gap [Moles/Vol] 10.0 mmol/L Normal 3-11 [facility] ([place]) Comment on above: Performed By: #### 6 30-4 #### [facility] [address] [place] [address] Calcium [Mass/Vol] 8.4 mg/dL Low 8.5-10.5 [facility] ([place]) Comment on above: Performed By: #### 6 30-4 #### [facility] [address] [place] [address] Chloride [Moles/Vol] 102 mmol/L Normal 98-107 [facility] ([place]) Comment on above: Performed By: #### 6 30-4 #### [facility] [address] [place] [address] CO2 [Moles/Vol] 20 mmol/L Low 21- [facility] ([place]) Comment on above: Performed By: #### 6 30-4 #### [facility] [address] [place] [address] Creatinine [Moles/Vol] 1.2 mg/dL Normal 0.6-1.3 [facility] ([place]) Comment on above: Performed By: #### 6 30-4 #### [facility] [address] [place] [address] Creatinine and Glomerular filtration rate.predicted panel (S/P/Bld) 72 mL/min Normal >60 [facility] ([place]) Comment on above: Performed By: #### 6 30-4 #### [facility] [address] [place] [address] GFR/1.73 sq M.predicted among non-blacks MDRD (S/P/Bld) [Vol rate/Area] 60 mL/min/{1.73_m2} Normal >60 [facility] ([place]) Comment on above: Performed By: #### 6 30-4 #### [facility] [address] [place] [address] Glucose [Mass/Vol] 255 mg/dL High 70-99 [facility] ([place]) Comment on above: Performed By: #### 6 30-4 #### [facility] [address] [place] [address] Potassium [Moles/Vol] 3.3 mmol/L Low 3.6-5.0 [facility] ([place]) Comment on above: Performed By: #### 6 30-4 #### [facility] [address] [place] [address] Sodium [Moles/Vol] 132 mmol/L Low 135-145 [facility] ([place]) Comment on above: Performed By: #### 6 30-4 #### [facility] [address] [place] [address] Urea nitrogen [Mass/Vol] 18 mg/dL Normal 6-20 [facility] ([place]) Comment on above: Performed By: #### 6 30-4 #### [facility] [address] [place] [address] CBC W/ Auto Diffon 12-20-202 2 Basophils (Bld) [#/Vol] 0.1 10*3/uL Normal 0.00-0.20 [facility] ([place]) Comment on above: Performed By: #### 6 30-4 #### [facility] [address] [place] [address] Basophils/100 WBC (Bld) 0.9 % Normal 0.0-1.5 [facility] ([place]) Comment on above: Performed By: #### 6 30-4 #### [facility] [address] [place] [address] Eosinophils (Bld) [#/Vol] 0.2 10*3/uL Normal 0.00-0.33 [facility] ([place]) Comment on above: Performed By: #### 6 30-4 #### [facility] [address] [place] [address] Eosinophils/100 WBC (Bld) 2.8 % Normal 0.0-3.0 [facility] ([place]) Comment on above: Performed By: #### 6 30-4 #### [facility] [address] [place] [address] Erythrocyte distribution width (RBC) [Ratio] 13.5 % Normal 10.9-14.3 [facility] ([place]) Comment on above: Performed By: #### 6 30-4 #### [facility] [address] [place] [address] Hematocrit (Bld) [Volume fraction] 39.4 % Low 41.0-50.0 [facility] ([place]) Comment on above: Performed By: #### 6 30-4 #### [address] [address] Hemoglobin (Bld) [Mass/Vol] 13.1 g/dL Low 13.5-16.5 [facility] ([place]) Comment on above: Performed By: #### 6 30-4 #### [facility] [address] [place] [address] Lymphocytes Auto (Unsp spec) [#/Vol] 1.1 10*3/uL Normal 1.10-4.80 [facility] ([place]) Comment on above: Performed By: #### 6 30-4 #### [facility] [address] [place] [address] Lymphocytes/100 WBC (Bld) 15.1 % Low 24.0-44.0 [facility] ([place]) Comment on above: Performed By: #### 6 30-4 #### [facility] [address] [place] [address] MCH (RBC) [Entitic mass] 29.1 pg Normal 28.0-34.0 [facility] ([place]) Comment on above: Performed By: #### 6 30-4 #### [address] [address] MCHC (RBC) [Mass/Vol] 33.2 g/dL Normal 33.0-37.0 [facility] ([place]) Comment on above: Performed By: #### 6 30-4 #### [facility] [address] [place] [address] MCV (RBC) [Entitic vol] 87.7 fL Normal 80.0-100.0 [facility] ([place]) Comment on above: Performed By: #### 6 30-4 #### [address] [address] Monocytes (Bld) [#/Vol] 0.8 10*3/uL High 0.20-0.70 [facility] ([place]) Comment on above: Performed By: #### 6 30-4 #### [address] [address] Monocytes/100 WBC (Bld) 11.9 % High 3.4-9.0 [facility] ([place]) Comment on above: Performed By: #### 6 30-4 #### [facility] [address] [place] [address] Neutrophils (Bld) [#/Vol] 4.8 10*3/uL Normal 1.83-8.70 [facility] ([place]) Comment on above: Performed By: #### 6 30-4 #### [facility] [address] [place] [address] Neutrophils/100 WBC (Bld) 69.3 % Normal 40.0-74.0 [facility] ([place]) Comment on above: Performed By: #### 6 30-4 #### [facility] [address] [place] [address] Platelet mean volume (Bld) [Entitic vol] 6.5 fL Low 7.4-10.4 [facility] ([place]) Comment on above: Performed By: #### 6 30-4 #### [address] [address] Platelets (Bld) [#/Vol] 137 10*3/uL Low 150-450 [facility] ([place]) Comment on above: Performed By: #### 6 30-4 #### [address] [address] RBC (Bld) [#/Vol] 4.49 10*6/uL Low 4.50-5.50 [facility] ([place]) Comment on above: Performed By: #### 6 30-4 #### [address] [address] WBC (Bld) [#/Vol] 6.9 10*3/uL Normal 4.5-11.0 [facility] ([place]) Comment on above: Performed By: #### 6 30-4 #### [address] [address] Detection in urine of either or both bilirubin and urobilinogenOrdered By: Judy Boo on 04-22-2022 Bilirubin+Urobilinogen Ql (U) Negative NEGATIVE [facility] Folate SerPl-mCncon 04-22-20 Folate [Mass/Vol] ng/mL Normal >5.9 [facility] ([place]) Comment on above: Performed By: #### 3 2693-4 #### [facility] [address] [place] [address] Glucose Glucometer (BldC) [M ass/Vol]on 04-22-2022 Glucose [Mass/Vol] 314 mg/dL Normal 70-99 [facility] ([place]) Comment on above: Performed By: #### 4 1653-7 #### [facility] [address] [place] [address] Glucose [Mass/Vol] 171 mg/dL Normal 70-99 [facility] ([place]) Comment on above: Performed By: #### 3 2693-4 #### [facility] [address] [place] [address] Glucose [Mass/Vol] 292 mg/dL Normal 70-99 [facility] ([place]) Comment on above: Performed By: #### C D #### [facility] [address] [place] [address] Glucose [Mass/Vol] 199 mg/dL Normal 70-99 [facility] ([place]) Comment on above: Performed By: #### 3 2693-4 #### [facility] [address] [place] [address] Glucose [Mass/volume] in Uri ne by Automated test stripOrdered By: Judy Boo on 04-22-2022 Glucose Auto test strip (U) [Mass/Vol] >=2000 mg/dL NEGATIVE [facility] - Hematology and Cell countsOrdered By: Mary Beth Landaverde on 04-22-2022 HbA1c (Bld) [Mass fraction] 10.5 % 4.0-6.0 [facility] Lactate (Bld) [Moles/Vol]on 04-22-2022 Lactate [Moles/Vol] 1.1 mmol/L Normal 0.5-2.0 [facility] ([place]) Comment on above: Performed By: #### 2 1020-3 #### [facility] [address] [place] [address] Lactate (Bld) [Moles/Vol]Ord ered By: Mary Beth Landaverde on 04-22-2022 Lactate [Moles/Vol] 1.1 mmol/L 0.5-2.0 [facility] Lipid Panelon 04-22-2022 Cholesterol [Mass/Vol] 99 mg/dL Low 140-200 [facility] ([place]) Comment on above: Performed By: #### 3 2693-4 #### [facility] [address] [place] [address] Cholesterol in HDL [Mass/Vol] 23 mg/dL Low 29-71 [facility] ([place]) Comment on above: Performed By: #### 3 2693-4 #### [facility] [address] [place] [address] Cholesterol in LDL [Mass/Vol] 46 mg/dL Normal <129 [facility] ([place]) Comment on above: Performed By: #### 3 2693-4 #### [facility] [address] [place] [address] Cholesterol in LDL/Cholesterol in HDL [Mass ratio] 2.0 {ratio} Normal [facility] ([place]) Comment on above: Result Comment: MEN WOMEN 1/2 Average Risk 1.00 1.47 Average Risk 3.55 3.22 2X Average Risk 6.25 5.03 3X Average Risk 7.99 6.14 Performed By: #### 3 2693-4 #### [facility] [address] [place] [address] Triglyceride [Mass/Vol] 189 mg/dL Normal 41-189 [facility] ([place]) Comment on above: Performed By: #### 3 2693-4 #### [facility] [address] [place] [address] MR angio head wo conon 04-22 MR angio head wo [facility] [address] [place], [place] [address] Magnetic Resonance Report Signed Patient: CHARLI PORRAS R#: [id number] : 1950 Acct:[id number] Age/Sex: 71 / M Admit Date: 04/19/22 Loc: 2T 2004- Attending Dr: Verito Devi MD Ordering Physician: Mary Beth Landaverde NP Date of Service: 04/22/22 Procedure(s): MR angio head wo con; MR angio neck wo con Accession Number(s): [id number]; [id number] cc: Mary Beth Landaverde NP PHYSICIAN INDICATIONS: Pain 3T MR Angiogram Head: TECHNIQUE: 3T MRI. 3-D necl-ov-fjplcs images were obtained to the head without contrast. FINDINGS: There is mild plaquing of the carotid siphon bilaterally. No hemodynamically significant stenosis is identified. The right internal carotid artery supplies the right anterior and middle cerebral artery circulation. The left internal carotid artery supplies the left anterior and middle cerebral artery circulation. The basilar artery supplies the bilateral posterior cerebral artery circulation. 3T MR Angiogram Neck: TECHNIQUE: 3T MRI. 3-D qngh-jj-kdnxjh MRI images of the neck were obtained without contrast. Measurements were made following NASCET criteria. FINDINGS: There is mild plaquing of the carotid bifurcations bilaterally with no hemodynamically significant stenosis. Both vertebral arteries are patent. IMPRESSION: 3T MR Angiogram Head and Neck without contrast: 1. No hemodynamically significant stenosis of the bilateral internal carotid arteries. 2. No significant stenosis intracranial arteries. No evidence of aneurysm. Dictated By: Yunior Hickey MD DD/ 1538 Signed By: Yunior Hickey MD 04/22/22 1538 Point Of Care Specialist: [facility] ([place]) MR angio neck wo conon 04-22 MR angio neck wo [facility] [address] [place] [address] Magnetic Resonance Report Signed Patient: CHARLI PORRAS R#: [id number] : 1950 Acct:[id number] Age/Sex: 71 / M Admit Date: 04/19/22 Loc: 2T 2004- Attending Dr: Verito Devi MD Ordering Physician: Mary Beth Landaverde NP Date of Service: 04/22/22 Procedure(s): MR angio head wo con; MR angio neck wo con Accession Number(s): [id number]; [id number] cc: Mary Beth Landaverde NP PHYSICIAN INDICATIONS: Pain 3T MR Angiogram Head: TECHNIQUE: 3T MRI. 3-D vdag-lv-xxkjef images were obtained to the head without contrast. FINDINGS: There is mild plaquing of the carotid siphon bilaterally. No hemodynamically significant stenosis is identified. The right internal carotid artery supplies the right anterior and middle cerebral artery circulation. The left internal carotid artery supplies the left anterior and middle cerebral artery circulation. The basilar artery supplies the bilateral posterior cerebral artery circulation. 3T MR Angiogram Neck: TECHNIQUE: 3T MRI. 3-D hmlt-cs-bbdvev MRI images of the neck were obtained without contrast. Measurements were made following NASCET criteria. FINDINGS: There is mild plaquing of the carotid bifurcations bilaterally with no hemodynamically significant stenosis. Both vertebral arteries are patent. IMPRESSION: 3T MR Angiogram Head and Neck without contrast: 1. No hemodynamically significant stenosis of the bilateral internal carotid arteries. 2. No significant stenosis intracranial arteries. No evidence of aneurysm. Dictated By: Yunior Hickey MD DD/ 153 Signed By: Yunior Hickey MD 04/22/22 153 Point Of Care Specialist: [facility] ([place]) MR brain wo conon 04-22-2022 MR brain wo con [facility] [address] [place] [address] Magnetic Resonance Report Signed Patient: CHARLI PORRAS R#: [id number] : 1950 Acct:[id number] Age/Sex: 71 / M Admit Date: 04/19/22 Loc: 2T 2004- Attending Dr: Verito Devi MD Ordering Physician: Mary Beth Landaverde NP Date of Service: 04/22/22 Procedure(s): MR brain wo con Accession Number(s): [id number] cc: Mary Beth Landaverde NP PHYSICIAN INDICATIONS: Mental Status Chnage TECHNIQUE: 3T MRI. Multiplanar imaging without gadolinium. FINDINGS: The ventricles and sulci are prominant compatible with atrophy. High signal is seen in the periventricular white matter. There is no mass lesion, mass effect or acute hemorrhage identified. Diffusion images show no evidence of acute cerebral vascular accident. The sella, brainstem, and posterior fossa appear unremarkable. Visualized sinuses are clear. IMPRESSION: 3T MRI Brain without contrast: 1. Mild atrophy and small vessel ischemic change. 2. No evidence of acute infarction. Dictated By: Yunior Hickey MD DD/ 152 Signed By: Yunior Hickey MD 04/22/22 152 Point Of Care Specialist: IBRAHIMA Greenberg [facility] ([place]) Mucus [Presence] in Urine by AutomatedOrdered By: Judy Boo on 04-22-2022 Mucus Auto Ql (U) Small /HPF NONE SEEN [facility] No Panel InformationOrdered By: Judy Boo on 04-22-2022 Urine Culture Reflexed Reflexed to culture [facility] Comment on above: A Urine Culture has been added to this specimen. Prothrombin Time on Coumadin on 04-22-2022 INR Coag (PPP) [Relative time] 2.74 {INR} Normal 2.00-3.50 [facility] ([place]) Comment on above: Performed By: #### 9 4500-6 #### [facility] [address] [place] [address] RBC LM Ql (Urine sed)Ordered By: Judy Boo on 04-22-2022 RBC Ql (U) 11-20 /HPF NONE SEEN [facility] Serum or plasma cholesterol in LDL measurement (mass/volume)Ordered By: Mary Beth Landaverde on 04-22-2022 Cholesterol in LDL [Mass/Vol] 46 mg/dL <128 [facility] Serum or plasma cholesterol measurement (mass/volume)Ordered By: Mary Beth Landaverde on 04-22-2022 Cholesterol [Mass/Vol] 99 mg/dL 140-200 [facility] Serum or plasma folate measu rement (mass/volume)Ordered By: Mary Beth Landaverde on 04-22-2022 Folate [Mass/Vol] ng/mL >6.0 [facility] Serum or plasma gabapentin m easurementOrdered By: Mary Beth Landaverde on 04-22-2022 Gabapentin [Moles/Vol] 9.4 ug/mL 4.0-16.0 [facility] Comment on above: Detection Limit = 1. 0Performed at: [facility] - [facility] [address] [id number] Director: Martha Gaming MD, Phone: [phone] Serum or plasma high density lipoprotein (HDL) cholesterol measurementOrdered By: Mary Beth Landaverde on 04-22-2022 Cholesterol in HDL [Mass/Vol] 23 mg/dL 29-71 [facility] Serum or plasma low density lipoprotein (LDL) cholesterol/high density lipoprotein (HOrdered By: Mary Beth Landaverde on 04-22-2022 Cholesterol in LDL/Cholesterol in HDL [Mass ratio] 2.0 {ratio} [facility] Comment on above: MEN WOMEN1/2 Average Risk 1.00 1.47Average Risk 3.55 3.222X Average Risk 6.25 5.033X Average Risk 7.99 6.14 Serum or plasma thyroid stim ulating hormone (TSH) measurementOrdered By: Mary Beth Landaverde on 04-22-2022 TSH Qn 3.00 uIU/mL 0.34-5.60 [facility] Serum or plasma triglyceride measurement (mass/volume)Ordered By: Mary Beth Landaverde on 04-22-2022 Triglyceride [Mass/Vol] 189 mg/dL 41-189 [facility] Specific gravity of UrineOrd ered By: Judy Boo on 04-22-2022 Specific gravity (U) [Rel density] 1.015 1.001-1.035 [facility] TSH SerPl-aCncon 04-22-2022 TSH Qn 3.00 uIU/mL Normal 0.34-5.60 [facility] ([place]) Comment on above: Performed By: #### 3 2693-4 #### [facility] [address] [place] [address] Transitional cells detection in urine sediment by light microscopyOrdered By: Judy Boo on 04-22-2022 Transitional cells LM Ql (Urine sed) Not Reportable [facility] Urinalysis complete panel (U )on 04-22-2022 Mucus Auto Ql (U) SMALL Normal NONE SEEN [facility] ([place]) Comment on above: Order Comment: Urine Collect Straight Cath Performed By: #### 4 1653-7 #### [facility] [address] [place] [address] RBC Ql (U) 11-20 Normal NONE SEEN [facility] ([place]) Comment on above: Order Comment: Urine Collect Straight Cath Performed By: #### 4 1653-7 #### [facility] [address] [place] [address] WBC Auto (U) [#/Vol] >100 Normal NONE SEEN [facility] ([place]) Comment on above: Order Comment: Urine Collect Straight Cath Performed By: #### 4 1653-7 #### [address] [address] Yeast.budding LM.HPF (Urine sed) [#/Area] LARGE Normal NONE SEEN [facility] ([place]) Comment on above: Order Comment: Urine Collect Straight Cath Performed By: #### 4 1653-7 #### [address] [address] Urine blood detectionOrdered By: Judy Pompura on 04-22-2022 RBC Ql (U) Small NEGATIVE [facility] Urine colorOrdered By: Patri magdaleno Pompura on 04-22-2022 Color (U) Yellow [facility] Urine ketones detectionOrder ed By: Judy Pompura on 04-22-2022 Ketones Ql (U) 15 mg/dL NEGATIVE [facility] Urine leukocytes detection b y microscopyOrdered By: Judy Pompura on 04-22-2022 WBC Visual Ql (U) Moderate NEGATIVE [facility] Urine nitrate detectionOrder ed By: Judy Pompura on 04-22-2022 Nitrate Ql (U) Negative NEGATIVE [facility] Urine pHOrdered By: Judy Pompura on 04-22-2022 pH (U) 5.0 [pH] 4.6-8.0 [facility] Urine protein detection by a utomated test stripOrdered By: Judy Boo on 04-22-2022 Protein Auto test strip Ql (U) Negative NEGATIVE [facility] Vit B12 SerPl-mCncon 022 Cobalamin (Vitamin B12) [Mass/Vol] 787 pg/mL Normal 180-914 [facility] ([place]) Comment on above: Performed By: #### 3 2693-4 #### [facility] [address] [place] [address] Vitamin B12 ser/plasOrdered By: Mary Beth Landaverde on 04-22-2022 Cobalamin (Vitamin B12) [Mass/Vol] 787 pg/mL 180-914 [facility] Whole blood estimated averag e glucose determination by estimation from glycated hemoglobin (mass/voluOrdered By: Mary Beth Landaverde on 04-22-2022 Average glucose Estimated from glycated hemoglobin (Bld) [Mass/Vol] 255 mg/dL [facility] XR chest 2Von 04-22-2022 XR chest 2V [facility] [address] [place], [place] [address] XRay Report Signed Patient: CHARLI PORRAS#: [id number] : 1950 Acct:[id number] Age/Sex: 71 / M Admit Date: 04/19/22 Loc: 3026-[address]: Verito Devi MD Ordering Physician: Mary Beth Landaverde NP Date of Service: 04/22/22 Procedure(s): XR chest 2V Accession Number(s): [id number] cc: Mary Beth Landaverde NP PHYSICIAN INDICATIONS: SOB TECHNIQUE: Portable view. FINDINGS: The heart size is normal. The lung seay are clear. No infiltrates are identified. No pleural effusions are present. Postsurgical changes lower cervical spine. IMPRESSION: Chest, Portable: 1. No active pulmonary disease. No change from 04/19/2022. Dictated By: Yunior Hickey MD DD/ 43 Signed By: Yunior Hickey MD 04/22/221443 Point Of Care Specialist: IBRAHIMA Greenberg [facility] ([place]) Blood prothrombin time (PT) by coagulation assayOrdered By: Verito Devi on 04-21-2022 PT Coag (Bld) [Time] 26.2 s 9.5-12.9 [facility] CBC W/ Auto Diffon Basophils (Bld) [#/Vol] 0.0 10*3/uL Normal 0.00-0.20 [facility] ([place]) Comment on above: Performed By: #### 9 4500-6 #### [address] [address] Basophils/100 WBC (Bld) 0.5 % Normal 0.0-1.5 [facility] ([place]) Comment on above: Performed By: #### 9 4500-6 #### [address] [address] Eosinophils (Bld) [#/Vol] 0.1 10*3/uL Normal 0.00-0.33 [facility] ([place]) Comment on above: Performed By: #### 9 4500-6 #### [address] [address] Eosinophils/100 WBC (Bld) 1.5 % Normal 0.0-3.0 [facility] ([place] Comment on above: Performed By: #### 9 4500-6 #### [address] [address] Erythrocyte distribution width (RBC) [Ratio] 13.2 % Normal 10.9-14.3 [facility] ([place] Comment on above: Performed By: #### 9 4500-6 #### [address] [address] Hematocrit (Bld) [Volume fraction] 39.2 % Low 41.0-50.0 [facility] ([place] Comment on above: Performed By: #### 9 4500-6 #### [facility] [address] [place] [address] Hemoglobin (Bld) [Mass/Vol] 13.4 g/dL Low 13.5-16.5 [facility] ([place] Comment on above: Performed By: #### 9 4500-6 #### [facility] [address] [place] [address] Lymphocytes Auto (Unsp spec) [#/Vol] 1.1 10*3/uL Normal 1.10-4.80 [facility] ([place]) Comment on above: Performed By: #### 9 4500-6 #### [facility] [address] [place] [address] Lymphocytes/100 WBC (Bld) 12.3 % Low 24.0-44.0 [facility] ([place] Comment on above: Performed By: #### 9 4500-6 #### [facility] [address] [place] [address] MCH (RBC) [Entitic mass] 29.9 pg Normal 28.0-34.0 [facility] ([place] Comment on above: Performed By: #### 9 4500-6 #### [facility] [address] [place] [address] MCHC (RBC) [Mass/Vol] 34.1 g/dL Normal 33.0-37.0 [facility] ([place]) Comment on above: Performed By: #### 9 4500-6 #### [facility] [address] [place] [address] MCV (RBC) [Entitic vol] 87.7 fL Normal 80.0-100.0 [facility] ([place]) Comment on above: Performed By: #### 9 4500-6 #### [facility] [address] [place] [address] Monocytes (Bld) [#/Vol] 1.0 10*3/uL High 0.20-0.70 [facility] ([place] Comment on above: Performed By: #### 9 4500-6 #### [address] [address] Monocytes/100 WBC (Bld) 11.2 % High 3.4-9.0 [facility] ([place]) Comment on above: Performed By: #### 9 4500-6 #### [address] [address] Neutrophils (Bld) [#/Vol] 6.7 10*3/uL Normal 1.83-8.70 [facility] ([place]) Comment on above: Performed By: #### 9 4500-6 #### [address] [address] Neutrophils/100 WBC (Bld) 74.5 % High 40.0-74.0 [facility] ([place] Comment on above: Performed By: #### 9 4500-6 #### [address] [address] Platelet mean volume (Bld) [Entitic vol] 6.7 fL Low 7.4-10.4 [facility] ([place] Comment on above: Performed By: #### 9 4500-6 #### [facility] [address] [place] [address] Platelets (Bld) [#/Vol] 136 10*3/uL Low 150-450 [facility] ([place] Comment on above: Performed By: #### 9 4500-6 #### [address] [address] RBC (Bld) [#/Vol] 4.47 10*6/uL Low 4.50-5.50 [facility] ([place]) Comment on above: Performed By: #### 9 4500-6 #### [address] [address] WBC (Bld) [#/Vol] 9.0 10*3/uL Normal 4.5-11.0 [facility] ([place] Comment on above: Performed By: #### 9 4500-6 #### [facility] [address] [place] [address] Comprehensive metabolic 2000 panelon 04-21-2022 Albumin [Mass/Vol] 3.1 g/dL Low 3.4-4.8 [facility] ([place] Comment on above: Performed By: #### 4 1653-7 #### [facility] [address] [place] [address] Albumin/Globulin [Mass ratio] 0.9 {ratio} Low 1.1-2.2 [facility] ([place]) Comment on above: Performed By: #### 4 1653-7 #### [facility] [address] [place] [address] ALP [Catalytic activity/Vol] 73 U/L Normal 42-121 [facility] ([place]) Comment on above: Performed By: #### 4 1653-7 #### [facility] [address] [place] [address] ALT [Catalytic activity/Vol] 25 U/L Normal 10-63 [facility] ([place]) Comment on above: Performed By: #### 4 1653-7 #### [facility] [address] [place] [address] Anion gap [Moles/Vol] 9.0 mmol/L Normal 3-11 [facility] ([place]) Comment on above: Performed By: #### 4 1653-7 #### [facility] [address] [place] [address] AST [Catalytic activity/Vol] 28 U/L Normal 10-41 [facility] ([place] Comment on above: Performed By: #### 4 1653-7 #### [facility] [address] [place] [address] Bilirubin [Mass/Vol] 1.0 mg/dL Normal 0.3-1.5 [facility] ([place]) Comment on above: Performed By: #### 4 1653-7 #### [facility] [address] [place] [address] Calcium [Mass/Vol] 8.1 mg/dL Low 8.5-10.5 [facility] ([place] Comment on above: Performed By: #### 4 1653-7 #### [address] [address] Chloride [Moles/Vol] 101 mmol/L Normal 98-107 [facility] ([place]) Comment on above: Performed By: #### 4 1653-7 #### [facility] [address] [place] [address] CO2 [Moles/Vol] 22 mmol/L Normal 21-31 [facility] ([place] Comment on above: Performed By: #### 4 1653-7 #### [facility] [address] [place] [address] Creatinine [Moles/Vol] 1.1 mg/dL Normal 0.6-1.3 [facility] ([place]) Comment on above: Performed By: #### 4 1653-7 #### [facility] [address] [place] [address] Creatinine and Glomerular filtration rate.predicted panel (S/P/Bld) 80 mL/min Normal >60 [facility] ([place]) Comment on above: Performed By: #### 4 1653-7 #### [facility] [address] [place] [address] GFR/1.73 sq M.predicted among non-blacks MDRD (S/P/Bld) [Vol rate/Area] 66 mL/min/{1.73_m2} Normal >60 [facility] ([place]) Comment on above: Performed By: #### 4 1653-7 #### [address] [address] Globulin (S) [Mass/Vol] 3.6 g/dL Normal 1.9-3.9 [facility] ([place]) Comment on above: Performed By: #### 4 1653-7 #### [facility] [address] [place] [address] Glucose [Mass/Vol] 251 mg/dL High 70-99 [facility] ([place] Comment on above: Performed By: #### 4 1653-7 #### [facility] [address] [place] [address] Potassium [Moles/Vol] 3.9 mmol/L Normal 3.6-5.0 [facility] ([place]) Comment on above: Performed By: #### 4 1653-7 #### [facility] [address] [place] [address] Protein [Mass/Vol] 6.7 g/dL Normal 5.9-7.8 [facility] ([place] Comment on above: Performed By: #### 4 1653-7 #### [facility] [address] [place] [address] Sodium [Moles/Vol] 132 mmol/L Low 135-145 [facility] ([place] Comment on above: Performed By: #### 4 1653-7 #### [facility] [address] [place] [address] Urea nitrogen [Mass/Vol] 21 mg/dL High 6-20 [facility] ([place] Comment on above: Performed By: #### 4 1653-7 #### [facility] [address] [place] [address] Glucose Glucometer (BldC) [M ass/Vol]on 04-21-2022 Glucose [Mass/Vol] 209 mg/dL Normal 70-99 [facility] ([place]) Comment on above: Performed By: #### 4 1653-7 #### [facility] [address] [place] [address] Glucose [Mass/Vol] 195 mg/dL Normal 70-99 [facility] ([place] Comment on above: Performed By: #### 6 30-4 #### [facility] [address] [place] [address] Glucose [Mass/Vol] 263 mg/dL Normal 70-99 [facility] ([place] Comment on above: Performed By: #### 4 1653-7 #### [facility] [address] [place] [address] Glucose [Mass/Vol] 245 mg/dL Normal 70-99 [facility] ([place] Comment on above: Performed By: #### C D #### [facility] [address] [place] [address] Glucose [Mass/Vol] 235 mg/dL Normal 70-99 [facility] ([place]) Comment on above: Performed By: #### 9 4500-6 #### [facility] [address] [place] [address] Platelet poor plasma interna tional normalized ratio (INR) by coagulation assay (relatOrdered By: Verito Devi on 04-21-2022 INR Coag (PPP) [Relative time] 2.32 {INR} 0.80-2.00 [facility] Prothrombin Time INR w/o Cou mon 04-21-2022 PT Coag (Bld) [Time] 26.2 s High 9.5-12.9 [facility] ([place]) Comment on above: Performed By: #### 4 1653-7 #### [facility] [address] [place] [address] Prothrombin Time on Coumadin on 04-21-2022 INR Coag (PPP) [Relative time] 2.32 {INR} High 0.80-2.00 [facility] ([place]) Comment on above: Performed By: #### 9 4500-6 #### [facility] [address] [place] [address] Performed By: #### 4 1653-7 #### [facility] [address] [place] [address] Reflex Urn Culton 04-21-2022 Bacteria identified Cx Nom (U) ORGANISM ID: 1.1 - Presumptive Callie glabrata [place] Count 50,000-100,000 CFU/ml Normal [facility] ([place]) Comment on above: Performed By: #### 4 1653-7 #### [facility] [address] [place] [address] Basic Metabolic Panelon 04-03 Anion gap [Moles/Vol] 11.0 mmol/L Normal 3-11 [facility] ([place]) Comment on above: Performed By: #### 6 30-4 #### [facility] [address] [place] [address] Calcium [Mass/Vol] 8.3 mg/dL Low 8.5-10.5 [facility] ([place]) Comment on above: Performed By: #### 6 30-4 #### [facility] [address] [place] [address] Chloride [Moles/Vol] 100 mmol/L Normal 98-107 [facility] ([place]) Comment on above: Performed By: #### 6 30-4 #### [facility] [address] [place] [address] CO2 [Moles/Vol] 21 mmol/L Normal 21-31 [facility] ([place] Comment on above: Performed By: #### 6 30-4 #### [facility] [address] [place] [address] Creatinine [Moles/Vol] 1.4 mg/dL High 0.6-1.3 [facility] ([place]) Comment on above: Performed By: #### 6 30-4 #### [facility] [address] [place] [address] Creatinine and Glomerular filtration rate.predicted panel (S/P/Bld) 60 mL/min Normal >60 [facility] ([place]) Comment on above: Performed By: #### 6 30-4 #### [facility] [address] [place] [address] GFR/1.73 sq M.predicted among non-blacks MDRD (S/P/Bld) [Vol rate/Area] 50 mL/min/{1.73_m2} Normal >60 [facility] ([place]) Comment on above: Performed By: #### 6 30-4 #### [facility] [address] [place] [address] Glucose [Mass/Vol] 203 mg/dL High 70-99 [facility] ([place]) Comment on above: Performed By: #### 6 30-4 #### [facility] [address] [place] [address] Potassium [Moles/Vol] 4.0 mmol/L Normal 3.6-5.0 [facility] ([place]) Comment on above: Performed By: #### 6 30-4 #### [facility] [address] [place] [address] Sodium [Moles/Vol] 132 mmol/L Low 135-145 [facility] ([place]) Comment on above: Performed By: #### 6 30-4 #### [facility] [address] [place] [address] Urea nitrogen [Mass/Vol] 21 mg/dL High 6-20 [facility] ([place] Comment on above: Performed By: #### 6 30-4 #### [facility] [address] [place] [address] C. diff Toxin Assayon 2021 C. difficile glutamate dehydrogenase and toxins A+B IA.rapid Ql (Stl) Negative Normal [facility] ([place]) Comment on above: Result Comment: Nega tive for toxigenic C. difficile Performed By: #### 2 1020-3 #### [facility] [address] [place] [address] CBC W/ Auto Diffon 2 Basophils (Bld) [#/Vol] 0.0 10*3/uL Normal 0.00-0.20 [facility] ([place]) Comment on above: Performed By: #### 2 1020-3 #### [facility] [address] [place] [address] Basophils/100 WBC (Bld) 0.3 % Normal 0.0-1.5 [facility] ([place]) Comment on above: Performed By: #### 2 1020-3 #### [address] [address] Eosinophils (Bld) [#/Vol] 0.0 10*3/uL Normal 0.00-0.33 [facility] ([place]) Comment on above: Performed By: #### 2 1020-3 #### [address] [address] Eosinophils/100 WBC (Bld) 0.4 % Normal 0.0-3.0 [facility] ([place]) Comment on above: Performed By: #### 2 1020-3 #### [address] [address] Erythrocyte distribution width (RBC) [Ratio] 13.5 % Normal 10.9-14.3 [facility] ([place]) Comment on above: Performed By: #### 2 1020-3 #### [address] [address] Hematocrit (Bld) [Volume fraction] 38.5 % Low 41.0-50.0 [facility] ([place]) Comment on above: Performed By: #### 2 1020-3 #### [address] [address] Hemoglobin (Bld) [Mass/Vol] 12.9 g/dL Low 13.5-16.5 [facility] ([place]) Comment on above: Performed By: #### 2 1020-3 #### [facility] [address] [place] [address] Lymphocytes Auto (Unsp spec) [#/Vol] 1.0 10*3/uL Low 1.10-4.80 [facility] ([place]) Comment on above: Performed By: #### 2 1020-3 #### [facility] [address] [place] [address] Lymphocytes/100 WBC (Bld) 12.1 % Low 24.0-44.0 [facility] ([place]) Comment on above: Performed By: #### 2 1020-3 #### [facility] [address] [place] [address] MCH (RBC) [Entitic mass] 29.7 pg Normal 28.0-34.0 [facility] ([place]) Comment on above: Performed By: #### 2 1020-3 #### [facility] [address] [place] [address] MCHC (RBC) [Mass/Vol] 33.6 g/dL Normal 33.0-37.0 [facility] ([place]) Comment on above: Performed By: #### 2 1020-3 #### [facility] [address] [place] [address] MCV (RBC) [Entitic vol] 88.4 fL Normal 80.0-100.0 [facility] ([place]) Comment on above: Performed By: #### 2 1020-3 #### [facility] [address] [place] [address] Monocytes (Bld) [#/Vol] 1.0 10*3/uL High 0.20-0.70 [facility] ([place]) Comment on above: Performed By: #### 2 1020-3 #### [address] [address] Monocytes/100 WBC (Bld) 11.5 % High 3.4-9.0 [facility] ([place]) Comment on above: Performed By: #### 2 1020-3 #### [address] [address] Neutrophils (Bld) [#/Vol] 6.4 10*3/uL Normal 1.83-8.70 [facility] ([place]) Comment on above: Performed By: #### 2 1020-3 #### [address] [address] Neutrophils/100 WBC (Bld) 75.7 % High 40.0-74.0 [facility] ([place]) Comment on above: Performed By: #### 2 1020-3 #### [address] [address] Platelet mean volume (Bld) [Entitic vol] 6.8 fL Low 7.4-10.4 [facility] ([place]) Comment on above: Performed By: #### 2 1020-3 #### [address] [address] Platelets (Bld) [#/Vol] 133 10*3/uL Low 150-450 [facility] ([place]) Comment on above: Performed By: #### 2 1020-3 #### [address] [address] RBC (Bld) [#/Vol] 4.36 10*6/uL Low 4.50-5.50 [facility] ([place]) Comment on above: Performed By: #### 2 1020-3 #### [address] [address] WBC (Bld) [#/Vol] 8.5 10*3/uL Normal 4.5-11.0 [facility] ([place]) Comment on above: Performed By: #### 2 1020-3 #### [address] [address] CO2 (BldV) [Moles/Vol]Ordere d By: Judy Boo on 04-20-2022 CO2 [Moles/Vol] 21.3 mmol/L 23- [facility] CT abdomen pelvis wo conon 1 06-21-2021 CT abdomen pelvis wo [facility] [address] [place] [address] CT Scan Report Signed Patient: CHARLI PORRAS R#: [id number] : 1950 Acct:[id number] Age/Sex: 71 / M Admit Date: 04/19/22 Loc: 3026-[address]: Verito Devi MD Ordering Physician: Judy Boo MD Date of Service: 04/20/22 Procedure(s): CT abdomen pelvis wo con Accession Number(s): [id number] cc: Judy Boo MD PHYSICIAN INDICATIONS: Pain Technique: Axial images through the abdomen and pelvis without intravenous contrast. CT Dose Index: 11.9 mGy. DLP: 598 mGy-cm.. AEC. k=0.015 mSv/(mGy-cm) Findings: The heart size is normal. The lung bases are clear. Small hiatal hernia. The kidneys appear unremarkable bilaterally. No renal calculi or hydronephrosis are present. No ureteral stones are identified. The liver is unremarkable. The adrenal glands are unremarkable. The spleen and pancreas are unremarkable. Gallbladder is absent. No adenopathy or mass lesion in the mesentery or retroperitoneum. Aorta is normal in caliber. Inferior vena cava filter in expected position. Moderate stool throughout the colon and rectum suggesting constipation. Small bowel is not dilated. Bladder is unremarkable. No masses are seen in the pelvis. Impression: CT Abdomen and Pelvis without contrast: 1. Moderate stool throughout the colon and rectum suggesting constipation. Dictated By: Yunior Hickey MD DD/ 03 Signed By: Yunior Hickey MD 04/20/221403 Point Of Care Specialist: IBRAHIMA Greenberg [facility] ([place]) Gas panel (BldV)on CO2 (BldV) [Partial pressure] 30 mm[Hg] Low 39-55 [facility] ([place]) Comment on above: Performed By: #### 9 4500-6 #### [facility] [address] [place] [address] CO2 [Moles/Vol] 21.3 mmol/L Low 23-29 [facility] ([place]) Comment on above: Performed By: #### 9 4500-6 #### [facility] [address] [place] [address] HCO3 (Bld) [Moles/Vol] 20.4 mmol/L Low 22-28 [facility] ([place]) Comment on above: Performed By: #### 9 4500-6 #### [facility] [address] [place] [address] Oxygen (BldV) [Partial pressure] 117.0 mm[Hg] High 30-50 [facility] ([place]) Comment on above: Performed By: #### 9 4500-6 #### [facility] [address] [place] [address] pH (BldV) 7.44 [pH] High 7.31-7.42 [facility] ([place]) Comment on above: Performed By: #### 9 4500-6 #### [facility] [address] [place] [address] VBG Oxygen Saturation 99 % High 50-85 [facility] ([place]) Comment on above: Performed By: #### 9 4500-6 #### [facility] [address] [place] [address] Glucose Glucometer (BldC) [M ass/Vol]on 04-20-2022 Glucose [Mass/Vol] 164 mg/dL Normal 70-99 [facility] ([place]) Comment on above: Performed By: #### 9 4500-6 #### [facility] [address] [place] [address] Glucose [Mass/Vol] 176 mg/dL Normal 70-99 [facility] ([place]) Comment on above: Performed By: #### 2 1020-3 #### [facility] [address] [place] [address] Glucose [Mass/Vol] 178 mg/dL Normal 70-99 [facility] ([place]) Comment on above: Performed By: #### 2 1020-3 #### [facility] [address] [place] [address] Glucose [Mass/Vol] 231 mg/dL Normal 70-99 [facility] ([place]) Comment on above: Performed By: #### 9 4500-6 #### [facility] [address] [place] [address] HCO3 (BldV) [Moles/Vol]Order ed By: Judy Boo on 04-20-2022 HCO3 (Bld) [Moles/Vol] 20.4 mmol/L 22-28 [place] [facility] Hemoglobin A1con 04-20-2022 Average glucose Estimated from glycated hemoglobin (Bld) [Mass/Vol] 171 mg/dL Normal [facility] ([place]) Comment on above: Performed By: #### 3 2693-4 #### [facility] [address] [place] [address] HbA1c (Bld) [Mass fraction] 7.6 % High 4.0-6.0 [facility] ([place]) Comment on above: Performed By: #### 3 2693-4 #### [facility] [address] [place] [address] Natriuretic peptide B [Mass/ Vol]on 04-20-2022 Natriuretic peptide B (Bld) [Mass/Vol] 28 pg/mL Normal 0-100 [facility] ([place] Comment on above: Performed By: #### 4 1653-7 #### [facility] [address] [place] [address] Natriuretic peptide B [Mass/ Vol]Ordered By: Judy Boo on 04-20-2022 Natriuretic peptide B (Bld) [Mass/Vol] 28 pg/mL 0-100 [facility] No Panel InformationOrdered By: Judy Boo on 04-20-2022 Venous Blood Oxygen Saturation 99 % 50-85 [facility] Prothrombin Time on Coumadin on 04-20-2022 INR Coag (PPP) [Relative time] 2.33 {INR} Normal 2.00-3.50 [facility] ([place]) Comment on above: Performed By: #### 3 2693-4 #### [facility] [address] [place] [address] Stool Clostridium difficile panel (glutamate dehydrogenase detection with detection oOrdered By: Judy Boo on 04-20-2022 C. difficile glutamate dehydrogenase and toxins A+B IA.rapid Ql (Stl) Negative [facility] Comment on above: Negative for toxigen ic C. difficile Venous blood pH measurementO rdered By: Judy Boo on 04-20-2022 pH (BldV) 7.44 [pH] 7.31-7.42 [facility] Venous blood partial pressur e of carbon dioxide measurementOrdered By: Judy Boo on 04-20-2022 CO2 (BldV) [Partial pressure] 30 mm[Hg] 39-55 [facility] Venous blood partial pressur e of oxygen measurementOrdered By: Judy Boo on 04-20-2022 Oxygen (BldV) [Partial pressure] 117.0 mm[Hg] 30-50 [facility] ALT (SGPT) ser/plasOrdered B y: Thompson Hayden on 04-19-2022 ALT [Catalytic activity/Vol] 27 U/L 10-63 [facility] Absolute lymphocyte countOrd ered By: Thompson Hayden on 04-19-2022 Lymphocytes Auto (Unsp spec) [#/Vol] 1.3 10*3/uL 1.10-4.80 [facility] Albumin [Mass/volume] in Ser um or PlasmaOrdered By: Thompson Hayden on 04-19-2022 Albumin [Mass/Vol] 4.1 g/dL 3.4-4.8 [facility] Albumin/Globulin [Mass Ratio ] in Serum or PlasmaOrdered By: Thompson Hayden on 04-19-2022 Albumin/Globulin [Mass ratio] 1.0 {ratio} 1.1-2.2 [facility] Alkaline phosphatase [Enzyma tic activity/volume] in Serum or PlasmaOrdered By: Thompson Hayden on 04-19-2022 ALP [Catalytic activity/Vol] 96 U/L 42-121 [facility] Aspartate aminotransferase [ Enzymatic activity/volume] in Serum or PlasmaOrdered By: Thompson Hayden on 04-19-2022 AST [Catalytic activity/Vol] 29 U/L 10-41 [facility] Automated leukocyte clumps c ount in urine sediment (number/area)Ordered By: Thompson Jackelyn on 04-19-2022 Leukocyte clumps Auto (Urine sed) [#/Area] Moderate /HPF NONE SEEN [facility] Bacteria [Presence] in Urine sediment by Light microscopyOrdered By: Thompson Jackelyn on 04-19-2022 Bacteria LM Ql (Urine sed) Trace /HPF NONE SEEN [facility] Basophils Auto (Bld) [#/Vol] Ordered By: Baker Jackelyn on 04-19-2022 Basophils (Bld) [#/Vol] 0.1 10*3/uL 0.00-0.20 [facility] Basophils/100 WBC Auto (Bld) Ordered By: Baker Jackelyn on 04-19-2022 Basophils/100 WBC (Bld) 0.7 % 0.0-1.5 [facility] Bilirubin.total [Mass/volume ] in Serum or PlasmaOrdered By: Thompson Hayden on 04-19-2022 Bilirubin [Mass/Vol] 1.2 mg/dL 0.3-1.5 [facility] Blood Cultureon 04-19-2022 Bacteria identified Anaer+Aer cx Nom (Unsp spec) Bacteria Spec Anaerobe+Aerobe Cult NO GROWTH 5 DAYS Normal [facility] ([place]) Comment on above: Performed By: #### 4 1653-7 #### [facility] [address] [place] [address] Blood creatine kinase-MB yenny surement (mass/volume)Ordered By: Judy Boo on 04-19-2022 CK.MB (Bld) [Mass/Vol] 0.9 ng/mL 0-9.0 [facility] Blood magnesium measurement (mass/volume)Ordered By: Thompson Hayden on 04-19-2022 Magnesium (Bld) [Mass/Vol] 1.7 mEq/L 1.6-2.6 [facility] CBC W/ Auto Diffon Basophils (Bld) [#/Vol] 0.1 10*3/uL Normal 0.00-0.20 [facility] ([place]) Comment on above: Performed By: #### C D #### [facility] [address] [place] [address] Basophils/100 WBC (Bld) 0.7 % Normal 0.0-1.5 [facility] ([place]) Comment on above: Performed By: #### C D #### [facility] [address] [place] [address] Eosinophils (Bld) [#/Vol] 0.1 10*3/uL Normal 0.00-0.33 [facility] ([place]) Comment on above: Performed By: #### C D #### [facility] [address] [place] [address] Eosinophils/100 WBC (Bld) 0.6 % Normal 0.0-3.0 [facility] ([place] Comment on above: Performed By: #### C D #### [facility] [address] [place] [address] Erythrocyte distribution width (RBC) [Ratio] 13.7 % Normal 10.9-14.3 [facility] ([place]) Comment on above: Performed By: #### C D #### [facility] [address] [place] [address] Hematocrit (Bld) [Volume fraction] 46.6 % Normal 41.0-50.0 [facility] ([place] Comment on above: Performed By: #### C D #### [facility] [address] [place] [address] Hemoglobin (Bld) [Mass/Vol] 15.6 g/dL Normal 13.5-16.5 [facility] ([place]) Comment on above: Performed By: #### C D #### [facility] [address] [place] [address] Lymphocytes Auto (Unsp spec) [#/Vol] 1.3 10*3/uL Normal 1.10-4.80 [facility] ([place]) Comment on above: Performed By: #### C D #### [facility] [address] [place] [address] Lymphocytes/100 WBC (Bld) 12.6 % Low 24.0-44.0 [facility] ([place] Comment on above: Performed By: #### C D #### [facility] [address] [place] [address] MCH (RBC) [Entitic mass] 29.7 pg Normal 28.0-34.0 [facility] ([place] Comment on above: Performed By: #### C D #### [facility] [address] [place] [address] MCHC (RBC) [Mass/Vol] 33.4 g/dL Normal 33.0-37.0 [facility] ([place]) Comment on above: Performed By: #### C D #### [facility] [address] [place] [address] MCV (RBC) [Entitic vol] 88.9 fL Normal 80.0-100.0 [facility] ([place]) Comment on above: Performed By: #### C D #### [facility] [address] [place] [address] Monocytes (Bld) [#/Vol] 0.8 10*3/uL High 0.20-0.70 [facility] ([place]) Comment on above: Performed By: #### C D #### [facility] [address] [place] [address] Monocytes/100 WBC (Bld) 8.4 % Normal 3.4-9.0 [facility] ([place]) Comment on above: Performed By: #### C D #### [address] [address] Neutrophils (Bld) [#/Vol] 7.8 10*3/uL Normal 1.83-8.70 [facility] ([place]) Comment on above: Performed By: #### C D #### [address] [address] Neutrophils/100 WBC (Bld) 77.7 % High 40.0-74.0 [facility] ([place] Comment on above: Performed By: #### C D #### [address] [address] Platelet mean volume (Bld) [Entitic vol] 6.6 fL Low 7.4-10.4 [facility] ([place] Comment on above: Performed By: #### C D #### [facility] [address] [place] [address] Platelets (Bld) [#/Vol] 165 10*3/uL Normal 150-450 [facility] ([place]) Comment on above: Performed By: #### C D #### [facility] [address] [place] [address] RBC (Bld) [#/Vol] 5.24 10*6/uL Normal 4.50-5.50 [facility] ([place]) Comment on above: Performed By: #### C D #### [address] [address] WBC (Bld) [#/Vol] 10.1 10*3/uL Normal 4.5-11.0 [facility] ([place]) Comment on above: Performed By: #### C D #### [address] [address] CK + isoenzymes totalOrdered By: Judy Boo on 04-19-2022 CK [Catalytic activity/Vol] 106 U/L 49-397 [facility] CK MB Bld-mCncon 04-19-2022 CK.MB (Bld) [Mass/Vol] 0.9 ng/mL Normal 0-9.0 [facility] ([place]) Comment on above: Performed By: #### 6 30-4 #### [facility] [address] [place] [address] CK SerPl-cCncon 04-19-2022 CK [Catalytic activity/Vol] 106 U/L Normal 49-397 [facility] ([place]) Comment on above: Performed By: #### 6 30-4 #### [facility] [address] [place], [place] [address] CT head/brain wo conon 04-19 CT head/brain wo con [facility] [address] [place], [place] [address] CT Scan Report Signed Patient: CHARLI PORRAS#: [id number] : 1950 Acct:[id number] Age/Sex: 71 / M Admit Date: 04/18/22 Loc: ER Attending Dr: Ordering Physician: Thompson Hayden MD Date of Service: 04/19/22 Procedure(s): CT head/brain wo con Accession Number(s): [id number] cc: Thompson Hayden MD INDICATION: Altered mental status. Weakness. Increased confusion. TECHNIQUE: CT of the brain was performed without contrast. Automated mA/kV exposure control was utilized and patient examination was performed in strict accordance with principles of ALARA. RADIATION AMOUNT: 1098 mGy-cm. COMPARISON: MRI/MRA brain 09/07/2020. FINDINGS: There is no acute intracranial hemorrhage, midline shift, mass effect, or extra-axial fluid collection. Frederick-white differentiation is preserved. Brain volume and ventricular system are within normal limits for age. Mild patchy areas of low-attenuation are seen in the subcortical and deep periventricular white matter suggesting areas of chronic microvascular ischemia. The skull base and calvarium are intact. The visualized paranasal sinuses are unremarkable. The visualized orbits, globes, and mastoid air cells are unremarkable. IMPRESSION: No acute intracranial findings. Signed by Yimi Llanos MD Dictated By: Yimi Llanos MD DD/ 9 Signed By: Yimi Llanos MD 04/19/22424 Point Of Care Specialist: Normal [facility] ([place]) Carbon dioxide, total [Moles /volume] in Serum or PlasmaOrdered By: Thompson Hayden on 04-19-2022 CO2 [Moles/Vol] 24 mmol/L 21-31 [facility] Chloride [Moles/volume] in S maricel or PlasmaOrdered By: Thompson Hayden on 04-19-2022 Chloride [Moles/Vol] 94 mmol/L 98-107 [facility] Comprehensive metabolic 2000 panelon 04-19-2022 Albumin [Mass/Vol] 4.1 g/dL Normal 3.4-4.8 [facility]) Comment on above: Performed By: #### 4 1653-7 #### [facility] [address] [place] [address] Albumin/Globulin [Mass ratio] 1.0 {ratio} Low 1.1-2.2 [facility] ([place]) Comment on above: Performed By: #### 4 1653-7 #### [facility] [address] [place] [address] ALP [Catalytic activity/Vol] 96 U/L Normal 42-121 [facility] ([place]) Comment on above: Performed By: #### 4 1653-7 #### [facility] [address] [place] [address] ALT [Catalytic activity/Vol] 27 U/L Normal 10-63 [facility]) Comment on above: Performed By: #### 4 1653-7 #### [facility] [address] [place] [address] Anion gap [Moles/Vol] 13.0 mmol/L High 3-11 [facility] ([place]) Comment on above: Performed By: #### 4 1653-7 #### [facility] [address] [place] [address] AST [Catalytic activity/Vol] 29 U/L Normal 10-41 [facility] ([place]) Comment on above: Performed By: #### 4 1653-7 #### [facility] [address] [place] [address] Bilirubin [Mass/Vol] 1.2 mg/dL Normal 0.3-1.5 [facility] ([place]) Comment on above: Performed By: #### 4 1653-7 #### [facility] [address] [place] [address] Calcium [Mass/Vol] 9.0 mg/dL Normal 8.5-10.5 [facility] ([place]) Comment on above: Performed By: #### 4 1653-7 #### [facility] [address] [place] [address] Chloride [Moles/Vol] 94 mmol/L Low 98-107 [facility] ([place]) Comment on above: Performed By: #### 4 1653-7 #### [facility] [address] [place] [address] CO2 [Moles/Vol] 24 mmol/L Normal 21-31 [facility] ([place]) Comment on above: Performed By: #### 4 1653-7 #### [facility] [address] [place] [address] Creatinine [Moles/Vol] 1.5 mg/dL High 0.6-1.3 [facility] ([place]) Comment on above: Performed By: #### 4 1653-7 #### [facility] [address] [place] [address] Creatinine and Glomerular filtration rate.predicted panel (S/P/Bld) 56 mL/min Normal >60 [facility] ([place]) Comment on above: Performed By: #### 4 1653-7 #### [facility] [address] [place] [address] GFR/1.73 sq M.predicted among non-blacks MDRD (S/P/Bld) [Vol rate/Area] 46 mL/min/{1.73_m2} Normal >60 [facility] ([place]) Comment on above: Performed By: #### 4 1653-7 #### [facility] [address] [place] [address] Globulin (S) [Mass/Vol] 4.1 g/dL High 1.9-3.9 [facility] ([place]) Comment on above: Performed By: #### 4 1653-7 #### [facility] [address] [place] [address] Glucose [Mass/Vol] 273 mg/dL High 70-99 [facility] ([place]) Comment on above: Performed By: #### 4 1653-7 #### [address] [address] Potassium [Moles/Vol] 4.1 mmol/L Normal 3.6-5.0 [facility] ([place]) Comment on above: Performed By: #### 4 1653-7 #### [facility] [address] [place] [address] Protein [Mass/Vol] 8.2 g/dL High 5.9-7.8 [facility] ([place]) Comment on above: Performed By: #### 4 1653-7 #### [facility] [address] [place] [address] Sodium [Moles/Vol] 131 mmol/L Low 135-145 [facility] ([place]) Comment on above: Performed By: #### 4 1653-7 #### [facility] [address] [place] [address] Urea nitrogen [Mass/Vol] 18 mg/dL Normal 6-20 [facility] ([place] Comment on above: Performed By: #### 4 1653-7 #### [facility] [address] [place], [place] [id number] (523) Creatinine and Glomerular fi ltration rate.predicted panel (S/P/Bld)Ordered By: Thompson Hayden on 04-19-2022 GFR/1.73 sq M.predicted MDRD (S/P/Bld) [Vol rate/Area] 56 mL/min/{1.73_m2} >60 [facility] Eosinophils Auto (Bld) [#/Vo l]Ordered By: Thompson Hayden on 04-19-2022 Eosinophils (Bld) [#/Vol] 0.1 10*3/uL 0.00-0.33 [facility] Eosinophils/100 WBC Auto (Bl d)Ordered By: Thompson Hayden on 04-19-2022 Eosinophils/100 WBC (Bld) 0.6 % 0.0-3.0 [facility] Erythrocyte distribution wid th Auto (RBC) [Ratio]Ordered By: Thompson Hayden on 04-19-2022 Erythrocyte distribution width (RBC) [Ratio] 13.7 % 10.9-14.3 [facility] Estimated glomerular filtrat ion rate (GFR) non- AmericanOrdered By: Thompson Hayden on 04-19-2022 GFR/1.73 sq M.predicted among non-blacks MDRD (S/P/Bld) [Vol rate/Area] 46 mL/min/{1.73_m2} >60 [facility] Glucose Glucometer (BldC) [M ass/Vol]on 04-19-2022 Glucose [Mass/Vol] 267 mg/dL Normal 70-99 [facility] ([place]) Comment on above: Performed By: #### 2 1020-3 #### [facility] [address] [place], [place] [id number] (382) Glucose [Mass/Vol] 223 mg/dL Normal 70-99 [facility] ([place]) Comment on above: Performed By: #### 4 1653-7 #### [facility] [address] [place] [address] (434) Hematocrit Auto (Bld) [Volum e fraction]Ordered By: Thompson Hayden on 04-19-2022 Hematocrit (Bld) [Volume fraction] 46.6 % 41.0-50.0 [facility] Hemoglobin [Mass/volume] in BloodOrdered By: Thompson Hayden on 04-19-2022 Hemoglobin (Bld) [Mass/Vol] 15.6 g/dL 13.5-16.5 [facility] Influenza A,B [facility] by PCRon 04-19-2022 FLUBV Ag Ql (Unsp spec) Negative Normal Negative [facility] ([place]) Comment on above: Performed By: #### 6 30-4 #### [facility] [address] [place] [address] Rapid Flu A Negative Normal Negative [facility] ([place]) Comment on above: Performed By: #### 6 30-4 #### [facility] [address] [place] [address] Lactate (Bld) [Moles/Vol]on 04-19-2022 Lactate [Moles/Vol] 1.3 mmol/L Normal 0.5-2.0 [facility] ([place]) Comment on above: Performed By: #### 2 1020-3 #### [facility] [address] [place] [address] Lactate [Moles/Vol] 2.9 mmol/L Critically high 0.5-2.0 [facility] ([place]) Comment on above: Result Comment: Crit ical result called to and read back by [] at 1517. Performed By: #### 3 2693-4 #### [facility] [address] [place] [address] Lactate (Bld) [Moles/Vol]Ord ered By: Thompson Hayden on 04-19-2022 Lactate [Moles/Vol] 2.9 mmol/L 0.5-2.0 [facility] Comment on above: Critical result call ed to and read back by [] at 1517. Leukocytes detection in urin e sediment by light microscopyOrdered By: Thompson Hayden on 04-19-2022 WBC LM Ql (Urine sed) >100 /HPF NONE SEEN [facility] Lymphocytes/100 WBC Auto (Bl d)Ordered By: Thompson Hayden on 04-19-2022 Lymphocytes/100 WBC (Bld) 12.6 % 24.0-44.0 [facility] MCH Auto (RBC) [Entitic mass ]Ordered By: Thompson Hayden on 04-19-2022 MCH (RBC) [Entitic mass] 29.7 pg 28.0-34.0 [facility] MCHC Auto (RBC) [Mass/Vol]Or dered By: Thompson Hayden on 04-19-2022 MCHC (RBC) [Mass/Vol] 33.4 g/dL 33.0-37.0 [facility] MCV (mean corpuscular volume ) determinationOrdered By: Thompson Hayden on 04-19-2022 MCV (RBC) [Entitic vol] 88.9 fL 80.0-100.0 [facility] Magnesium Bld-mCncon 022 Magnesium (Bld) [Mass/Vol] 1.7 mEq/L Normal 1.6-2.6 [facility] ([place]) Comment on above: Performed By: #### 4 1653-7 #### [facility] [address] [place] [address] Microscopic examination of u rineOrdered By: Thompson Hayden on 04-19-2022 Microscopic observation LM Nom (Urine sed) Yes [facility] Microscopic observation LM N om (Urine sed)on 04-19-2022 Transitional cells LM Ql (Urine sed) OCCASIONAL Normal NONE SEEN [facility] ([place]) Comment on above: Order Comment: Urine Collect Clean Catch Performed By: #### 6 30-4 #### [facility] [address] [place] [address] Monocytes Auto (Bld) [#/Vol] Ordered By: Thompson Hayden on 04-19-2022 Monocytes (Bld) [#/Vol] 0.8 10*3/uL 0.20-0.70 [facility] Monocytes/100 WBC Auto (Bld) Ordered By: Thompson Hayden on 04-19-2022 Monocytes/100 WBC (Bld) 8.4 % 3.4-9.0 [facility] Neutrophils Auto (Bld) [#/Vo l]Ordered By: Thompson Hayden on 04-19-2022 Neutrophils (Bld) [#/Vol] 7.8 10*3/uL 1.83-8.70 [facility] Neutrophils/100 WBC Auto (Bl d)Ordered By: Thompson Hayden on 04-19-2022 Neutrophils/100 WBC (Bld) 77.7 % 40.0-74.0 [facility] No Panel InformationOrdered By: Thompson Hayden on 04-19-2022 Procalcitonin 0.14 ng/mL 0.10-0.50 [facility] Comment on above: *PROCALCITONIN INTER PRETATION*Less than 0.5: Low risk for systemic infection.0.5 to 2.0: Moderate risk for systemic infection.Greater than 2.0: High risk for systemic infection.10.0 or greater: Likelihood of severe sepsis or septic shock. Influenza Type A (Rapid) Negative Negative [facility] Platelet mean volume Auto (B ld) [Entitic vol]Ordered By: Thompson Hayden on 04-19-2022 Platelet mean volume (Bld) [Entitic vol] 6.6 fL 7.4-10.4 [facility] Platelets Auto (Bld) [#/Vol] Ordered By: Thompson Hayden on 04-19-2022 Platelets (Bld) [#/Vol] 165 10*3/uL 150-450 [facility] Potassium [Moles/volume] in Serum or PlasmaOrdered By: Thompson Hayden on 04-19-2022 Potassium [Moles/Vol] 4.1 mmol/L 3.6-5.0 [facility] Procalcitoninon 04-19-2022 Procalcitonin 0.14 ng/mL Normal 0.10-0.50 [facility] ([place]) Comment on above: Result Comment: *PRO CALCITONIN INTERPRETATION* Less than 0.5: Low risk for systemic infection. 0.5 to 2.0: Moderate risk for systemic infection. Greater than 2.0: High risk for systemic infection. 10.0 or greater: Likelihood of severe sepsis or septic shock. Performed By: #### 2 1020-3 #### [facility] [address] [place] [address] Prothrombin Time INR w/o Cou mon 04-19-2022 INR Coag (PPP) [Relative time] 2.64 {INR} High 0.80-2.00 [facility] ([place]) Comment on above: Performed By: #### 9 4500-6 #### [facility] [address] [place] [address] PT Coag (Bld) [Time] 29.9 s High 9.5-12.9 [facility] ([place]) Comment on above: Performed By: #### 9 4500-6 #### [facility] [address] [place] [address] RBC Auto (Bld) [#/Vol]Ordere d By: Thompson Hayden on 04-19-2022 RBC (Bld) [#/Vol] 5.24 10*6/uL 4.50-5.50 [facility] RBC LM Ql (Urine sed)Ordered By: Thompson Hayden on 04-19-2022 RBC Ql (U) 10-20 /HPF NONE SEEN [facility] Rapid influenza B antigen de tectionOrdered By: Thompson Hayden on 04-19-2022 FLUBV Ag Ql (Unsp spec) Negative Negative [facility] Respiratory specimen COVID-1 9 virus RNA detectionOrdered By: Thompson Hayden on 04-19-2022 SARS-CoV-2 (COVID-19) RNA LIV+probe Ql (Resp) [facility] SARS-CoV2 PCRon 04-19-2022 SARS-CoV-2 (COVID-19) RNA LIV+probe Ql (Resp) SARS-CoV-2 RNA Resp Ql LIV+probe SARS-CoV-2 Result SARS-CoV-2 RNA Not Detected Comment 1 *EUA - In Vitro Diagnostic Use Under Emergency Use Comment 1.1 Authorization. Comment 2 *This test has not been FDA cleared or approved. Comment 3 *This test has been authorized by the FDA under an Comment 3.1 EUA for use by authorized laboratories. Comment 4 *This test has been authorized only for the detection Comment 4.1 of nucleic acid from SARS-CoV-2, not for any other Comment 4.2 viruses or pathogens. Comment 5 *This test is only authorized for the duration of the Comment 5.1 declaration that circumstances exist justifying the Comment 5.2 authorization of emergency use of in vitro diagnostic Comment 5.3 tests for detection and/or diagnosis of COVID-19 under Comment 5.4 Section 564(b)(1) of the Act, 21 U.S.C. 360bb-3(b)(1), Comment 5.5 unless the authorization is terminated or revoked sooner. Normal [facility] ([place]) Comment on above: Performed By: #### 9 4500-6 #### [facility] [address] [place] [address] Serum globulin measurement ( mass/volume)Ordered By: Thompson Hayden on 04-19-2022 Globulin (S) [Mass/Vol] 4.1 g/dL 1.9-3.9 [facility] Serum glucose measurement (m ass/volume)Ordered By: Thompson Hayden on 04-19-2022 Glucose [Mass/Vol] 273 mg/dL 70-99 [facility] Serum or plasma anion gap de termination (moles/volume)Ordered By: Thompson Hayden on 04-19-2022 Anion gap [Moles/Vol] 13.0 mmol/L 3-11 [facility] Serum or plasma calcium maricel urement (mass/volume)Ordered By: Thompson Hayden on 04-19-2022 Calcium [Mass/Vol] 9.0 mg/dL 8.5-10.5 [facility] Serum or plasma creatinine m easurement (moles/volume)Ordered By: Thompson Hayden on 04-19-2022 Creatinine [Moles/Vol] 1.5 mg/dL 0.6-1.3 [facility] Serum or plasma sodium measu rement (moles/volume)Ordered By: Thompson Hayden on 04-19-2022 Sodium [Moles/Vol] 131 mmol/L 135-145 [facility] Serum or plasma urea nitroge n measurement (mass/volume)Ordered By: Thompson Hayden on 04-19-2022 Urea nitrogen [Mass/Vol] 18 mg/dL 6-20 [facility] Total protein bloodOrdered B y: Thompsno Barrytig on 04-19-2022 Protein [Mass/Vol] 8.2 g/dL 5.9-7.8 [facility] Troponin I SerPl-mCncon 04-03 Troponin I.cardiac [Mass/Vol] ng/mL Normal <0.03 [facility] ([place]) Comment on above: Performed By: #### 6 30-4 #### [facility] [address] [place] [address] Troponin I ser/plasOrdered B y: Judy Pompura on 04-19-2022 Troponin I.cardiac [Mass/Vol] ng/mL <0.03 [facility] Urinalysison 04-19-2022 Bilirubin+Urobilinogen Ql (U) Negative Normal NEGATIVE [facility] ([place]) Comment on above: Order Comment: Urine Collect Clean Catch Performed By: #### 6 30-4 #### [facility] [address] [place] [address] Glucose Auto test strip (U) [Mass/Vol] 1000 mg/dL Abnormal NEGATIVE [facility] ([place] Comment on above: Order Comment: Urine Collect Clean Catch Performed By: #### 6 30-4 #### [facility] [address] [place] [address] Ketones Ql (U) Negative Normal NEGATIVE [facility] ([place] Comment on above: Order Comment: Urine Collect Clean Catch Performed By: #### 6 30-4 #### [facility] [address] [place] [address] Nitrate Ql (U) Negative Normal NEGATIVE [facility] ([place] Comment on above: Order Comment: Urine Collect Clean Catch Performed By: #### 6 30-4 #### [facility] [address] [place] [address] RBC Ql (U) SMALL Abnormal NEGATIVE [facility] ([place] Comment on above: Order Comment: Urine Collect Clean Catch Performed By: #### 6 30-4 #### [facility] [address] [place] [address] Urobilinogen (U) [Mass/Vol] Negative Normal NEGATIVE [facility] ([place] Comment on above: Order Comment: Urine Collect Clean Catch Performed By: #### 6 30-4 #### [facility] [address] [place] [address] WBC Visual Ql (U) TRACE Abnormal NEGATIVE [facility] ([place] Comment on above: Order Comment: Urine Collect Clean Catch Performed By: #### 6 30-4 #### [facility] [address] [place] [address] Appearance (U) HAZY Normal [facility] ([place] Comment on above: Order Comment: Urine Collect Clean Catch Performed By: #### 6 30-4 #### [facility] [address] [place] [address] Color (U) YELLOW Normal [facility] ([place] Comment on above: Order Comment: Urine Collect Clean Catch Performed By: #### 6 30-4 #### [facility] [address] [place] [address] pH (U) 5.0 [pH] Normal 4.6-8.0 [facility] ([place] Comment on above: Order Comment: Urine Collect Clean Catch Performed By: #### 6 30-4 #### [facility] [address] [place] [address] Protein Auto test strip Ql (U) TRACE Abnormal NEGATIVE [facility] ([place]) Comment on above: Order Comment: Urine Collect Clean Catch Performed By: #### 6 30-4 #### [facility] [address] [place] [address] Specific gravity (U) [Rel density] 1.015 Normal 1.001-1.035 [facility] ([place]) Comment on above: Order Comment: Urine Collect Clean Catch Performed By: #### 6 30-4 #### [facility] [address] [place] [address] Urobilinogen Test strip (U) [Mass/Vol]Ordered By: Thompson Hayden on 04-19-2022 Urobilinogen (U) [Mass/Vol] Negative NEGATIVE [facility] WBC Auto (Bld) [#/Vol]Ordere d By: Thompson Hayden on 04-19-2022 WBC (Bld) [#/Vol] 10.1 10*3/uL 4.5-11.0 [facility] XR chest 1V portableon 04-19 XR chest 1V portable [facility] [address] [place] [address] XRay Report Signed Patient: CHARLI PORRAS R#: [id number] : 1950 Acct:[id number] Age/Sex: 71 / M Admit Date: 04/18/22 Loc: ER Attending Dr: Ordering Physician: Thompson Hayden MD Date of Service: 04/19/22 Procedure(s): XR chest 1V portable Accession Number(s): [id number] cc: Thompson Hayden MD INDICATION: Increased weakness onset today. TECHNIQUE: Frontal chest was obtained at 00:39 hours. COMPARISON: None Available. FINDINGS: The cardiomediastinal silhouette is normal in size. There is no consolidation or atelectasis in either lung. There are no pleural effusions. There is no pneumothorax. No acute osseous process. Postoperative changes in the cervical spine noted. Postoperative changes of LEFT shoulder also demonstrated. IMPRESSION: No acute thoracic findings. Signed by Radu Carvalho II, MD Dictated By: Radu Carvalho MD DD/ [id number] Signed By: Radu Carvalho MD 04/19/22 0100 Point Of Care Specialist: Normal [facility] ([place]) ATHENAnikkie 03-10-2022 JEANNETTE Patient name: CHARLI PORRAS MR#: [id number] Date of Service: 03/10/22 Acc#: [id number] : 1950 Age: 71 Sex: M Dictated by: Denise Barnes NP Patient Name : CHARLI PORRAS (71yo, M) ID# [id number] Appt. Date/Time : 03/10/2022 02:15PM : 1950 Service Dept. : [facility]IN MANAGEMENT Provider : DENISE BARNES APRN, CNP Insurance Med Primary: [place] (MEDICARE REPLACEMENT/ADVANTAGE - HMO) Insurance # : [id number] Policy/Group # : [id number] Med Secondary: [facility] - DOS PRIOR TO 2022 (MEDICAID REPLACEMENT - HMO) Insurance # : [id number] Policy/Group # : [id number] Prescription: [facility] - Member is eligible. details Chief Complaint *pain management pain in legs and back Patient's Care Team Primary Care Provider: ERICKA CASSIDY MD: [address] [place] [address], , Ref[facility] Provider[facility] [address] [place] [address], , Other: CHARISSE VALENCIA MD: [address] [place] [address], , Patient's Pharmacies [facility] (ERX): [address] [address], , Vitals BP: 154/75 sitting R arm 03/10/2022 02:20 pm Ht: 5 ft 10 in (177.8 cm) 03/10/2022 02:15 pm Wt: 314 lbs (142.43 kg) 03/10/2022 02:19 pm O2Sat: 97% 03/10/2022 02:19 pm Pulse: 67 bpm 03/10/2022 02:19 pm RR: 18 03/10/2022 02:19 pm Pain Scale: 7 03/10/2022 02:19 pm Allergies Reviewed Allergies NKDA Medications Reviewed Medications Name: allopurinoL 100 mg tablet TAKE 1 TABLET BY MOUTH EVERY DAY Date: 03/06/22 filled Source: [facility] Name: ammonium lactate 12 % lotion APPLY TO THE AFFECTED AREA(S) TWICE DAILY Date: 12/12/21 filled Source: [facility] Name: atorvastatin 10 mg tablet TAKE 1 TABLET BY MOUTH EVERY DAY Date: 03/06/22 filled Source: [facility] Name: bumetanide 1 mg tablet TAKE 1 TABLET BY MOUTH EVERY DAY NEEDED FOR LEG SWELLING Date: 03/06/22 filled Source: [facility] Name: busPIRone 15 mg tablet TAKE ONE (1) TABLET BY MOUTH TWICE DAILY Date: 07/10/21 filled Source: josescripts Name: Centrum Silver Men 300 mcg-600 mcg-300 mcg tablet Take 1 tablet(s) every day by oral route. Date: 10/10/20 entered Source: Kerri Christensen Name: clonazePAM 0.5 mg tablet TAKE 1 TABLET BY MOUTH TWICE DAILY Date: 01/13/22 filled Source: [facility] Name: cloNIDine 0.2 mg/24 hr weekly transdermal patch APPLY 1 PATCH TOPICALLY EVERY WEEK FOR ANXIETY Date: 03/06/22 filled Source: [facility] Name: diclofenac 1 % topical gel APPLY 2 GRAMS TOPICALLY TWICE DAILY TO AFFECTED AREA(S) Date: 11/13/20 filled Source: [facility] Name: donepeziL 10 mg tablet TAKE 1 TABLET BY MOUTH DAILY IN THE EVENING *EMERGENCY REFILL* Date: 02/05/22 filled Source: [facility] Name: doxazosin 2 mg tablet TAKE 1 TABLET BY MOUTH EVERY DAY Date: 03/06/22 filled Source: [facility] Name: DULoxetine 60 mg capsule,delayed release TAKE ONE (1) CAPSULE BY MOUTH ONCE DAILY Date: 03/06/22 filled Source: [facility] Name: ezetimibe 10 mg tablet TAKE 1 TABLET BY MOUTH EVERY DAY Date: 03/06/22 filled Source: [facility] Name: gabapentin 800 mg tablet TAKE 1 TABLET BY MOUTH THREE TIMES DAILY Date: 02/28/22 filled Source: [facility] Name: glipiZIDE ER 10 mg tablet, extended release 24 hr TAKE 2 TABLETS BY MOUTH EVERY DAY WITH BREAKFAST *STOP OTHER GLIPIZIDE* Date: 03/06/22 filled Source: mar[facility]ari[facility] Name: hydrOXYzine pamoate 50 mg capsule TAKE 1 CAPSULE BY MOUTH FOUR TIMES DAILY NEEDED Date: 03/05/22 filled Source: surescripts Name: Januvia 25 mg tablet TAKE 1 TABLET BY MOUTH ONCE DAILY *EMERGENCY REFILL* Date: 12/06/21 filled Source: surescripts Name: Jardiance 25 mg tablet TAKE 1 TABLET BY MOUTH EVERY DAY IN THE MORNING Date: 03/06/22 filled Source: surescripts Name: Lanrylan Solostar U-100 Insulin 100 unit/mL (3 mL) subcutaneous pen INJECT 50 UNITS SUBCUTANEOUSLY EVERY DAY Date: 03/06/22 filled Source: surescripts Name: mupirocin 2 % topical ointment APPLY TO THE AFFECTED AREA(S) TWICE DAILY with dressing for 14 days Date: 10/03/21 filled Source: surescripts Name: pramipexole 0.125 mg tablet TAKE 1 TABLET BY MOUTH TWO TIMES EVERY DAY Date: 03/06/22 filled Source: surescripts Name: QUEtiapine 100 mg tablet TAKE 1 TABLET BY MOUTH EVERY MORNING Date: 02/20/22 filled Source: surescripts Name: QUEtiapine 200 mg tablet TAKE 1 TABLET BY MOUTH EVERY BEDTIME Date: 03/06/22 filled Source: surescripts Name: QUEtiapine 50 mg tablet TAKE 1 TABLET BY MOUTH EVERY AFTERNOON *EMERGENCY REFILL* Date: 03/05/22 filled Source: surescripts Name: risperiDONE 1 mg tablet TAKE 1 TABLET BY MOUTH EVERY EVENING Date: 03/04/21 filled Source: (more content not included)... [facility] 01-08-2022 [place] Patient name: CHARLI PORRAS MR#: [id number] Date of Service: 01/08/22 Acc#: [id number] : 1950 Age: 71 Sex: M Dictated by: Maryan Tony MD Patient Name : CHARLI PORRAS (71yo, M) ID# [id number] Appt. Date/Time : 01/08/2022 01:15PM : 1950 Service Dept. : [facility]PAIN MANAGEMENT Provider : MARYAN TONY M.D. Insurance Med Primary: [place] (MEDICARE REPLACEMENT/ADVANTAGE - HMO) Insurance # : [id number] Policy/Group # : [id number] Med Secondary: [facility] ([place]ICAID REPLACEMENT - HMO) Insurance # : [id number] Policy/Group # : [id number] Prescription: [facility] - Member is eligible. details Prescription: [facility] - Member is eligible. details Chief Complaint *pain management REFILLS; C/O PAIN FROM BACK TO FEET - ALL OVER; WOULD LIKE TO GET AN INJECTION AVING A LOT OF SCIATIC NERVE PAIN DOWN RIGHT SIDE Patient's Care Team Primary Care Provider: ERICKA CASSIDY MD: [address] [place] [address], , Referring Provider: SARAH FELIPEI: [address] [place] [address], Ph [phone], Other: CHARISSE VALENCIA MD: [address] [place] [address], , ax Patient's Pharmacies [facility] ([facility]): [address] [address], Ph [phone], Vitals BP: 166/88 sitting L arm 01/08/2022 01:23 pm Ht: 5 ft 10 in (177.8 cm) 01/08/2022 01:15 pm O2Sat: 97% 01/08/2022 01:22 pm Pulse: 65 bpm 01/08/2022 01:22 pm RR: 18 01/08/2022 01:15 pm Pain Scale: 8 01/08/2022 01:15 pm Allergies Reviewed Allergies NKDA Medications Reviewed Medications Name: allopurinoL 100 mg tablet TAKE 1 TABLET BY MOUTH EVERY DAY Date: 01/07/22 filled Source: su[facility]cripts Name: ammonium lactate 12 % lotion APPLY TO THE AFFECTED AREA(S) TWICE DAILY Date: 12/12/21 filled Source: surescripts Name: atorvastatin 10 mg tablet TAKE 1 TABLET BY MOUTH EVERY DAY Date: 01/07/22 filled Source: joses[facility]s Name: bumetanide 1 mg tablet TAKE 1 TABLET BY MOUTH EVERY DAY NEEDED FOR LEGSWELLING Date: 01/07/22 filled Source: [facility] Name: busPIRone 15 mg tablet TAKE ONE (1) TABLET BY MOUTH TWICE DAILY Date: 07/10/21 filled Source: [facility] Name: Centrum Silver Men 300 mcg-600 mcg-300 mcg tablet Take 1 tablet(s) every ay by oral route. Date: 10/10/20 entered Source: Kerri Christensen Name: clonazePAM 0.5 mg tablet TAKE 1 TABLET BY MOUTH TWICE DAILY Date: 12/10/21 filled Source: [facility] Name: cloNIDine 0.2 mg/24 hr weekly transdermal patch APPLY 1 PATCH TOPICALLY EERY WEEK FOR ANXIETY Date: 01/07/22 filled Source: [facility] Name: cloNIDine HCL 0.1 mg tablet TAKE 1 TABLET BY MOUTH TWICE DAILY NEEDED EMERGENCY REFILL* Date: 10/08/21 filled Source: [facility] Name: diclofenac 1 % topical gel APPLY 2 GRAMS TOPICALLY TWICE DAILY TO AFFECTE AREA(S) Date: 11/13/20 filled Source: [facility] Name: donepeziL 10 mg tablet TAKE 1 TABLET BY MOUTH EVERY DAY IN THE EVENING Date: 01/07/22 filled Source: [facility] Name: doxazosin 2 mg tablet TAKE 1 TABLET BY MOUTH ONCE DAILY Date: 01/07/22 filled Source: [facility] Name: DULoxetine 60 mg capsule,delayed release TAKE ONE (1) CAPSULE BY MOUTH ONE DAILY Date: 01/07/22 filled Source: [facility] Name: ezetimibe 10 mg tablet TAKE 1 TABLET BY MOUTH EVERY DAY Date: 01/07/22 filled Source: [facility] Name: FLUoxetine 40 mg capsule TAKE 1 CAPSULE BY MOUTH ONCE DAILY *EMERGENCY REILL* Date: 08/08/21 filled Source: [facility] Name: gabapentin 800 mg tablet TAKE 1 TABLET BY MOUTH 3 TIMES DAILY Date: 01/08/22 prescribed Source: Maryan Tony M.D. Name: glipiZIDE 5 mg tablet TAKE 2 TABLETS BY MOUTH 2 TIMES EVERY DAY BEFORE A EAL Date: 01/07/22 filled Source: [facility] Name: hydrOXYzine pamoate 50 mg capsule TAKE 1 CAPSULE BY MOUTH FOUR TIMES JILLIAN NEEDED *EMERGENCY REFILL* Date: 07/10/21 filled Source: surescripts Name: Januvia 25 mg tablet TAKE 1 TABLET BY MOUTH ONCE DAILY *EMERGENCY REFILL* Date: 12/06/21 filled Source: surescripts Name: Jardiance 25 mg tablet TAKE 1 TABLET BY MOUTH EVERY DAY IN THE MORNING Date: 01/07/22 filled Source: surescripts Name: Deb Solostar U-100 Insulin 100 unit/mL (3 mL) subcutaneous pen INJECT 0 UNITS SUBCUTANEOUSLY EVERY DAY Date: 01/07/22 filled Source: surescripts Name: mupirocin 2 % topical ointment APPLY TO THE AFFECTED AREA(S) TWICE DAILY ith dressing for 14 days Date: 10/03/21 filled Source: surescripts Name: nystatin 100,000 unit/gram topical powder APPLY TO THE AFFECTED AREA(S) TREE TIMES DAILY Date: 07/19/21 filled Source: surescripts Name: pramipexole 0.125 mg tablet TAKE 1 TABLET BY MOUTH TWO TIMES EVERY DAY Date: 01/07/22 filled Source: surescripts Name: QUEtiapine 100 mg (more content not included)... [facility] 11-07-2021 [place] Patient name: CHARLI PORRAS MR#: [id number] Date of Service: 11/07/21 Acc#: [id number] : 1950 Age: 71 Sex: M Dictated by: Maryan Tony MD Patient Name : CHARLI PORRAS (71yo, M) ID# [id number] Appt. Date/Time : 11/07/2021 09:45AM : 1950 Service Dept. : [facility]PAIN MANAGEMENT Provider : MARYAN TONY M.D. Insurance Med Primary: [facility] - MEDIBLUE (MEDICARE REPLACEMENT/ADVANTAGE - HMO) Insurance # : [id number] Policy/Group # : [id number] Med Secondary: [facility] ([place]ICAID [place]PL[place]EMENT - [place]MO) Insurance # : [id number] Policy/Group # : [id number] Prescription: [facility] - Member is eligible. details Prescription: [facility] - Member is eligible. details Chief Complaint *pain management refills; c/o pain all over mostly back and legs Patient's Care Team Primary Care Provider: ERICKA CASSIDY MD: [address] [place] [address], , Referring Provider: SARAH FELIPEI: [address] [place] [address], Ph [phone], Other: CHARISSE VALENCIA MD: [address] [place] [address], , ax Patient's Pharmacies [facility] ([facility]): [address] [address], Ph [phone], Vitals BP: 141/59 sitting R arm 11/07/2021 10:09 am Ht: 5 ft 10 in (177.8 cm) 11/07/2021 10:02 am O2Sat: 98% 11/07/2021 10:08 am Pulse: 73 bpm 11/07/2021 10:08 am RR: 18 11/07/2021 10:08 am Pain Scale: 7 11/07/2021 10:02 am Allergies Reviewed Allergies NKDA Medications Reviewed Medications Name: allopurinoL 100 mg tablet TAKE 1 TABLET BY MOUTH EVERY DAY Date: 10/08/21 filled Source: ursula Name: atorvastatin 10 mg tablet TAKE 1 TABLET BY MOUTH EVERY DAY Date: 10/08/21 filled Source: martharimartha Name: bumetanide 1 mg tablet TAKE 1 TABLET BY MOUTH EVERY DAY NEEDED FOR LEGSWELLING Date: 10/08/21 filled Source: martharimartha Name: busPIRone 15 mg tablet TAKE ONE (1) TABLET BY MOUTH TWICE DAILY Date: 07/10/21 filled Source: martharimartha Name: Centrum Silver Men 300 mcg-600 mcg-300 mcg tablet Take 1 tablet(s) every ay by oral route. Date: 10/10/20 entered Source: Kerri Christensen Name: cloNIDine 0.2 mg/24 hr weekly transdermal patch APPLY 1 PATCH TOPICALLY EERY WEEK FOR ANXIETY Date: 10/08/21 filled Source: surescripts Name: cloNIDine HCL 0.1 mg tablet TAKE 1 TABLET BY MOUTH TWICE DAILY NEEDED EMERGENCY REFILL* Date: 10/08/21 filled Source: [facility] Name: diclofenac 1 % topical gel APPLY 2 GRAMS TOPICALLY TWICE DAILY TO AFFECTE AREA(S) Date: 11/13/20 filled Source: [facility] Name: donepeziL 10 mg tablet TAKE 1 TABLET BY MOUTH EVERY DAY IN THE EVENING Date: 10/08/21 filled Source: [facility]s Name: doxazosin 2 mg tablet TAKE 1 TABLET BY MOUTH ONCE DAILY Date: 10/08/21 filled Source: [facility]s Name: DULoxetine 60 mg capsule,delayed release TAKE 1 CAPSULE BY MOUTH EVERY DAY Date: 10/08/21 filled Source: [facility]s Name: ezetimibe 10 mg tablet TAKE 1 TABLET BY MOUTH EVERY DAY Date: 10/08/21 filled Source: [facility] Name: FLUoxetine 40 mg capsule TAKE 1 CAPSULE BY MOUTH ONCE DAILY *EMERGENCY REILL* Date: 08/08/21 filled Source: [facility] Name: gabapentin 800 mg tablet TAKE 1 TABLET BY MOUTH THREE TIMES DAILY Date: 11/07/21 prescribed Source: Maryan Tony M.D. Name: glipiZIDE 5 mg tablet TAKE TWO (2) TABLETS BY MOUTH TWICE DAILY BEFORE MELS Date: 10/08/21 filled Source: [facility] Name: hydrOXYzine pamoate 50 mg capsule TAKE 1 CAPSULE BY MOUTH FOUR TIMES JILLIAN NEEDED *EMERGENCY REFILL* Date: 07/10/21 filled Source: mar[facility]aripts Name: Januvia 25 mg tablet TAKE 1 TABLET BY MOUTH EVERY DAY Date: 10/08/21 filled Source: martharipts Name: Jardiance 25 mg tablet TAKE 1 TABLET BY MOUTH EVERY DAY IN THE MORNING Date: 10/08/21 filled Source: mar[facility]aripts Name: Deb Solbitaar U-100 Insulin 100 unit/mL (3 mL) subcutaneous pen INJECT 0 UNITS SUBCUTANEOUSLY EVERY DAY Date: 10/18/21 filled Source: martharipts Name: mupirocin 2 % topical ointment APPLY TO THE AFFECTED AREA(S) TWICE DAILY ith dressing for 14 days Date: 10/03/21 filled Source: josescripts Name: nystatin 100,000 unit/gram topical powder APPLY TO THE AFFECTED AREA(S) TREE TIMES DAILY Date: 07/19/21 filled Source: ursula Name: pramipexole 0.125 mg tablet TAKE 1 TABLET BY MOUTH TWO TIMES EVERY DAY Date: 10/08/21 filled Source: surescripts Name: QUEtiapine 100 mg tablet TAKE 1 TABLET BY MOUTH IN THE MORNING Date: 10/08/21 filled Source: surescripts Name: QUEtiapine 200 mg tablet TAKE 1 TABLET BY MOUTH AT BEDTIME Date: 10/08/21 filled Source: surescripts Name: QUEtiapine 50 mg tablet take 1 (ONE) tablet by mouth every afternoon Date: 10/26/21 filled Source: surescripts Name: risperiDONE 1 (more content not included)... [facility] 08-29-2021 [place] Patient name: CHARLI PORRAS MR#: [id number] Date of Service: 08/29/21 Acc#: [id number] : 1950 Age: 71 Sex: M Dictated by: Maryan Tony MD Patient Name : CHARLI PORRAS (71yo, M) ID# [id number] Appt. Date/Time : 08/29/2021 08:30AM : 1950 [facility] Provider : MARYAN TONY M.D. Insurance Med Primary: [facility] - MEDIBLUE (MEDICARE REPLACEMENT/ADVANTAGE - HMO) Insurance # : [id number] Policy/Group # : [id number] Med Secondary: [facility] ([place]ICA[place]PL[place] - [place]MO) Insurance # : [id number] Policy/Group # : [id number] Prescription: [facility] - Member is eligible. details Prescription: [facility] - Member is eligible. details Chief Complaint medication refill, *pain management refill Patient's Care Team Primary Care Provider: ERICKA CASSIDY MD: [address] [place] [address], , Referring Provider: SARAH FELIPEI: [address] [place] [address], Ph [phone], Other: CHARISSE VALENCIA MD: [address] [place] [address], , ax Patient's Pharmacies [facility] ([facility]): [address] [address], Ph [phone], Vitals BP: 104/71 sitting R arm 08/29/2021 09:07 am Ht: 5 ft 10 in (177.8 cm) 08/29/2021 09:01 am O2Sat: 95% 08/29/2021 09:07 am Pulse: 72 bpm 08/29/2021 09:07 am Pain Scale: 6 08/29/2021 09:01 am Allergies Reviewed Allergies NKDA Medications Reviewed Medications Name: allopurinoL 100 mg tablet TAKE 1 TABLET BY MOUTH EVERY DAY Date: 08/08/21 filled Source: martharimartha Name: atorvastatin 10 mg tablet TAKE 1 TABLET BY MOUTH EVERY DAY Date: 08/08/21 filled Source: martharimartha Name: bumetanide 1 mg tablet TAKE 1 TABLET BY MOUTH EVERY DAY NEEDED FOR LEGSWELLING Date: 08/08/21 filled Source: martharimartha Name: busPIRone 15 mg tablet TAKE ONE (1) TABLET BY MOUTH TWICE DAILY Date: 07/10/21 filled Source: martharipts Name: Centrum Silver Men 300 mcg-600 mcg-300 mcg tablet Take 1 tablet(s) every ay by oral route. Date: 10/10/20 entered Source: Kerri Christensen Name: cloNIDine 0.2 mg/24 hr weekly transdermal patch APPLY 1 PATCH TOPICALLY EERY WEEK FOR ANXIETY Date: 08/08/21 filled Source: martharimartha Name: cloNIDine HCL 0.1 mg tablet TAKE 1 TABLET BY MOUTH TWICE DAILY NEEDED EMERGENCY REFILL* Date: 08/15/21 filled Source: martharimartha Name: diclofenac 1 % topical gel APPLY 2 GRAMS TOPICALLY TWICE DAILY TO AFFECTE AREA(S) Date: 11/13/20 filled Source: marthariamrtha Name: donepeziL 10 mg tablet TAKE 1 TABLET BY MOUTH EVERY DAY IN THE EVENING Date: 08/08/21 filled Source: martharipts Name: doxazosin 2 mg tablet TAKE 1 TABLET BY MOUTH ONCE DAILY Date: 08/08/21 filled Source: josescripts Name: DULoxetine 60 mg capsule,delayed release TAKE 1 CAPSULE BY MOUTH EVERY DAY Date: 08/08/21 filled Source: josescripts Name: ezetimibe 10 mg tablet TAKE 1 TABLET BY MOUTH EVERY DAY Date: 08/08/21 filled Source: josescripts Name: FLUoxetine 40 mg capsule TAKE 1 CAPSULE BY MOUTH ONCE DAILY *EMERGENCY REILL* Date: 08/08/21 filled Source: josescripts Name: gabapentin 800 mg tablet TAKE 1 TABLET BY MOUTH THREE TIMES DAILY Date: 07/27/21 filled Source: josescripts Name: glipiZIDE 5 mg tablet TAKE TWO (2) TABLETS BY MOUTH TWICE DAILY BEFORE MELS Date: 08/08/21 filled Source: josescripts Name: hydrOXYzine pamoate 50 mg capsule TAKE 1 CAPSULE BY MOUTH FOUR TIMES JILLIAN NEEDED *EMERGENCY REFILL* Date: 07/10/21 filled Source: josescripts Name: Januvia 25 mg tablet TAKE 1 TABLET BY MOUTH EVERY DAY Date: 08/08/21 filled Source: surescripts Name: Jardiance 25 mg tablet TAKE 1 TABLET BY MOUTH EVERY DAY IN THE MORNING Date: 08/08/21 filled Source: josescripts Name: Deb Wynn U-100 Insulin 100 unit/mL (3 mL) subcutaneous pen inject 0 units sub-q once daily Date: 07/19/21 filled Source: surescripts Name: nystatin 100,000 unit/gram topical powder APPLY TO THE AFFECTED AREA(S) TREE TIMES DAILY Date: 07/19/21 filled Source: josescripts Name: pramipexole 0.125 mg tablet TAKE 1 TABLET BY MOUTH TWICE DAILY *EMERGENCYREFILL* Date: 08/08/21 filled Source: josescripts Name: QUEtiapine 200 mg tablet TAKE 1 TABLET BY MOUTH AT BEDTIME Date: 08/08/21 filled Source: josescripts Name: QUEtiapine 50 mg tablet TAKE 1 TABLET BY MOUTH EVERY MORNING Date: 06/23/21 filled Source: josescripts Name: risperiDONE 1 mg tablet TAKE 1 TABLET BY MOUTH EVERY EVENING Date: 03/04/21 filled Source: josescripts Name: rivastigmine 13.3 mg/24 hour transdermal patch Apply 1 patch(es) every da by transdermal route. Date: 08/08/21 filled Source: sureSooligan Name: rivastigmine 4.6 mg/24 hour transdermal patch APPLY 1 PATCH TRANSDERMALLYRYAN NDIAYE (more content not included)... Normal [facility] BASIC METABOLIC PANELon 07-02 Calcium [Mass/Vol] 9.0 mg/dL Normal 8.5-10.5 [facility] Comment on above: Performed By: #### C OVID19 [id number] #### [facility] [address] [place] [address] Chloride [Moles/Vol] 98 mmol/L Normal 98-107 [facility] Comment on above: Performed By: #### C OVID19 [id number] #### [facility] [address] [place] [address] CO2 [Moles/Vol] 29 mmol/L Normal 21-32 [facility] Comment on above: Performed By: #### C OVID19 [id number] #### [facility] [address] [place] [address] Creatinine [Mass/Vol] 1.32 mg/dL High 0.70-1.30 [facility] Comment on above: Performed By: #### C OVID19 [id number] #### [facility] [address] [place] [address] EST GLOM FILT > [address] [facility] Comment on above: Result Comment: Result Units: mL/min/1.73 m2 Note: Persistent reduction for 3 months or more of an eGFR of <60 ml/min/1.73 m2 defines Chronic Kidney Disease (CKD). Patients with eGFR values greater than or equal to 60 ml/min/1.73 m2 may also have CKD if evidence of persistent proteinuria is present. STAGES OF CKD eGFR Stage 1 Kidney damage with normal kidney function >=90 Stage 2 Kidney damage with mild loss of kidney function 89-60 Stage 3a Mild to moderate loss of kidney function 59-44 Stage 3b Moderate to severe loss of kidney function 43-30 Stage 4 Severe loss of kidney function 29-15 Stage 5 Kidney failure < 15 . Performed By: #### C OVID19 [id number] #### [facility] [address] [place] [address] ESTIMATED GLOM FILT RATE 53 mL/min/ Low [facility] Comment on above: Performed By: #### C OVID19 [id number] #### [facility] [address] [place] [address] Glucose [Mass/Vol] 303 mg/dL High 65-99 [facility] Comment on above: Performed By: #### C OVID19 [id number] #### [facility] [address] [place] [address] Potassium [Moles/Vol] 3.2 mmol/L Low 3.5-5.1 [facility] Comment on above: Performed By: #### C OVID19 [id number] #### [facility] [address] [place] [address] Sodium [Moles/Vol] 135 mmol/L Low 136-145 [facility] Comment on above: Performed By: #### C OVID19 [id number] #### [facility] [address] [place] [address] Urea nitrogen [Mass/Vol] 21 mg/dL Normal 7-24 [facility] Comment on above: Performed By: #### C OVID19 [id number] #### [facility] [address] [place] [address] CBC with DIFFERENTIALon 07-02 Basophils (Bld) [#/Vol] 0.1 10*3/uL Normal 0.0-0.1 [facility] Comment on above: Performed By: #### C OVID19 [id number] #### [facility] [address] [place] [address] Basophils/100 WBC (Bld) 0.7 % Normal 0.0-1.0 [facility] Comment on above: Performed By: #### C OVID19 [id number] #### [facility] [address] [place] [address] Eosinophils (Bld) [#/Vol] 0.3 10*3/uL Normal 0.0-0.4 [facility] Comment on above: Performed By: #### C OVID19 [id number] #### [facility] [address] [place] [address] Eosinophils/100 WBC (Bld) 3.5 % Normal 1.0-4.0 [facility] Comment on above: Performed By: #### C OVID19 [id number] #### [facility] [address] [place] [address] Hematocrit (Bld) [Volume fraction] 41.3 % Low 42.0-52.0 [facility] Comment on above: Performed By: #### C OVID19 [id number] #### [facility] [address] [place] [address] Hemoglobin (Bld) [Mass/Vol] 13.6 g/dL Low 14.0-18.0 [facility] Comment on above: Performed By: #### C OVID19 [id number] #### [facility] [address] [place] [address] IG # 0.1 10*3/uL Normal 0.0-0.1 [facility] Comment on above: Performed By: #### C OVID19 [id number] #### [facility] [address] [place] [address] IG % 1.0 % Normal 0.0-1.0 [facility] Comment on above: Performed By: #### C OVID19 [id number] #### [facility] [address] [place] [address] Lymphocytes (Bld) [#/Vol] 1.8 10*3/uL Normal 1.3-4.4 [facility] Comment on above: Performed By: #### C OVID19 [id number] #### [facility] [address] [place] [address] Lymphocytes/100 WBC (Bld) 25.4 % Low 27.0-41.0 [facility] Comment on above: Performed By: #### C OVID19 [id number] #### [facility] [address] [place] [address] MCV (RBC) [Entitic vol] 89.2 fL Normal 80.0-94.0 [facility] Comment on above: Performed By: #### C OVID19 [id number] #### [facility] [address] [place] [address] MEAN CORPUSCULAR HGB 29.4 pg Normal 27.0-31.0 [facility] Comment on above: Performed By: #### C OVID19 [id number] #### [facility] [address] [place] [address] MEAN CORPUSCULAR HGB CONC 32.9 g/dl Low 33.0-37.0 [facility] Comment on above: Performed By: #### C OVID19 [id number] #### [facility] [address] [place] [address] Monocytes (Bld) [#/Vol] 0.6 10*3/uL Normal 0.1-1.0 [facility] Comment on above: Performed By: #### C OVID19 [id number] #### [facility] [address] [place] [address] Monocytes/100 WBC (Bld) 7.8 % Normal 3.0-9.0 [facility] Comment on above: Performed By: #### C OVID19 [id number] #### [facility] [address] [place] [address] Neutrophils (Bld) [#/Vol] 4.4 10*3/uL Normal 2.3-7.9 [facility] Comment on above: Performed By: #### C OVID19 [id number] #### [facility] [address] [place] [address] Neutrophils/100 WBC (Bld) 61.6 % Normal 47.0-73.0 [facility] Comment on above: Performed By: #### C OVID19 [id number] #### [facility] [address] [place] [address] NUCLEATED RED BLOOD CELL 0.0 10*3/uL Normal 0.0-0.0 [facility] Comment on above: Performed By: #### C OVID19 [id number] #### [facility] [address] [place] [address] NUCLEATED RED BLOOD CELL 0.0 % Normal 0.0-0.0 [facility] Comment on above: Performed By: #### C OVID19 [id number] #### [facility] [address] [place] [address] PLATELET COUNT AUTOMATED 137 10*3/uL Normal 130-400 [facility] Comment on above: Performed By: #### C OVID19 [id number] #### [facility] [address] [place] [address] Platelet mean volume (Bld) [Entitic vol] 10.0 fL Normal 9.6-12.3 [facility] Comment on above: Performed By: #### C OVID19 [id number] #### [facility] [address] [place] [address] RBC (Bld) [#/Vol] 4.63 10*6/uL Normal 4.50-5.90 [facility] Comment on above: Performed By: #### Jagjit OVID19 [id number] #### [facility] [address] [place] [address] RED CELL DISTRI WIDTH 14.6 % High 0-14.5 [facility] Comment on above: Performed By: #### Jagjit OVID19 405395 #### [facility] [address] [place] [address] WBC (Bld) [#/Vol] 7.1 10*3/uL Normal 4.8-10.8 [facility] Comment on above: Performed By: #### C OVID19 [id number] #### [facility] [address] [place] [address] NOVL CORONAVIRUS NAAon 07-12 SARS-CoV-2 (COVID-19) RNA LIV+probe Ql (Unsp spec) Not detected Normal Not Detected [facility] Comment on above: Order Comment: Is th is patient considered a Person Under Investigation? N Result Comment: This nucleic acid amplification test was developed and its performance characteristics determined by [employer]. Nucleic acid amplification tests include RT- PCR and TMA. This test has not been FDA cleared or approved. This test has been authorized by FDA under an Emergency Use Authorization (EUA). This test is only authorized for the duration of time the declaration that circumstances exist justifying the authorization of the emergency use of in vitro diagnostic tests for detection of SARS-CoV-2 virus and/or diagnosis of COVID-19 infection under section 564(b)(1) of the Act, 21 U.S.C. 360bbb-3(b) (1), unless the authorization is terminated or revoked sooner. When diagnostic testing is negative, the possibility of a false negative result should be considered in the context of a patient's recent exposures and the presence of clinical signs and symptoms consistent with COVID-19. An individual without symptoms of COVID-19 and who is not shedding SARS-CoV-2 virus would expect to have a negative (not detected) result in this assay. Performed By: #### C OVID19 [id number] #### [facility] [address] [place] [address] CHEST AP ONLY (1V)on 022 [id number] Name: CHARLI PORRAS Jagjit Phys: LANCE MULLINS DO : 1950 Age: 71 Sex: M Acct: [id number] Loc: 425 1 Exam Date: 07/11/2021 Status: ADM IN Radiology No: [id number] Unit No: [id number] EXAM# TYPE/EXAM RESULT [id number] RAD/CHEST AP ONLY (1V) SEE REPORT INDICATION: Right PICC line placement. TECHNIQUE: AP portable chest was obtained at 13:30 hours. COMPARISON: 07/03/2021 XR Chest. FINDINGS: The cardiomediastinal silhouette is normal in size. There is no consolidation or atelectasis in either lung. There are no pleural effusions. There is no pneumothorax. No acute osseous process. A PICC line from the right arm has its tip in the SVC. IMPRESSION: A PICC line from the right arm has its tip in the SVC. Signed by Yahaira Christianson MD REPORT SIGNED IN OTHER VENDOR SYSTEM 07/11/2021 Reported By: YAHAIRA CHRISTIANSON CC: ERICKA CASSIDY Technologist: DAIN,MURIEL L. Transcribed Date/Time: 07/11/2021 (5385) Point Of Care Specialist: LEEANNE Printed Date/Time: 07/11/2021 (0935) [address] [facility] SARS COVID 19 ANTIGENon 07-02 SARS COVID 19 ANTIGEN SARS COVID 19 ANTI GEN The [employer] SARS Antigen RENARD is a lateral flow immunofluorescent sandwich assay that is used with the [employer] instruments intended for the qualitative detection of the nucleocapsid protein antigen from SARS-CoV-2 in nasal (NS) swab specimens directly from individuals who are suspected of COVID-19 by their healthcare provider. Testing is limited to laboratories certified under the Clinical Laboratory Imporovement Amemdments of 1988 (CLIA), 42 U.S.C. 263a, that meet the requirements to perform moderate, high or waived complexity tests. This test is authorized for use at the Point of Care (POC), i.e., in patient care settings operating under a CLIA Certificate of [place], Certificate of Compliance, or Certificate of Accreditation. The SARS Atigen RENARD does not differentiate between SARS-CoV and SARS-CoV-2. Results are for the identification of SARS-CoV2 nucleocapsid protein antigen. Antigen is generally detectable in upper respiratory specimens during the acute phase of infection. Positive results indicate the presence of viral antigens, but clinical correlation with patient history and other diagnostic information is necessary to determine infection status. Positive results do not rule out bacterial infection or co-infection with other viruses. The agent detected may not be the definite cause of disease. Negative results should be treated as presumptive and confirmed with a molecular assay, if necessary for patient management. Negative results do not rule out COVID-19 and should not be used as the sole basis for treatment or patient management decisions, including infection control decisions. Negative results should be considered in the context of a patient's recent exposures, history and the presence of clinical signs and symptoms consistent with COVID-19. NEGATIVE FOR SARS ANTIGEN Normal [facility] Comment on above: Performed By: #### C OVID19 [id number] #### [facility] [address] [place] [address] BASIC METABOLIC PANELon -0 Calcium [Mass/Vol] 8.9 mg/dL Normal 8.5-10.5 [facility] Comment on above: Performed By: #### B MP, CBCD #### [facility] [address] [place] [address] Chloride [Moles/Vol] 99 mmol/L Normal 98-107 [facility] Comment on above: Performed By: #### B MP, CBCD #### [facility] [address] [place] [address] CO2 [Moles/Vol] 33 mmol/L High 21-32 [facility] Comment on above: Performed By: #### B MP, CBCD #### [facility] [address] [place] [address] Creatinine [Mass/Vol] 1.19 mg/dL Normal 0.70-1.30 [facility] Comment on above: Performed By: #### B MP, CBCD #### [facility] [address] [place] [address] EST GLOM FILT > 60 [facility] Comment on above: Result Comment: Result Units: mL/min/1.73 m2 Note: Persistent reduction for 3 months or more of an eGFR of <60 ml/min/1.73 m2 defines Chronic Kidney Disease (CKD). Patients with eGFR values greater than or equal to 60 ml/min/1.73 m2 may also have CKD if evidence of persistent proteinuria is present. STAGES OF CKD eGFR Stage 1 Kidney damage with normal kidney function >=90 Stage 2 Kidney damage with mild loss of kidney function 89-60 Stage 3a Mild to moderate loss of kidney function 59-44 Stage 3b Moderate to severe loss of kidney function 43-30 Stage 4 Severe loss of kidney function 29-15 Stage 5 Kidney failure < 15 . Performed By: #### B MP, CBCD #### [facility] [address] [place] [address] ESTIMATED GLOM FILT RATE 60 mL/min/ Normal [facility] Comment on above: Performed By: #### B MP, CBCD #### [facility] [address] [place] [address] Glucose [Mass/Vol] 258 mg/dL High 65-99 [facility] Comment on above: Performed By: #### B MP, CBCD #### [facility] [address] [place] [address] Potassium [Moles/Vol] 3.3 mmol/L Low 3.5-5.1 [facility] Comment on above: Performed By: #### B MP, CBCD #### [facility] [address] [place] [address] Sodium [Moles/Vol] 136 mmol/L Normal 136-145 [facility] Comment on above: Performed By: #### B MP, CBCD #### [facility] [address] [place] [address] Urea nitrogen [Mass/Vol] 19 mg/dL Normal 7-24 [facility] Comment on above: Performed By: #### B MP, CBCD #### [facility] [address] [place] [address] CBC with DIFFERENTIALon 03-0 -2021 Basophils (Bld) [#/Vol] 0.1 10*3/uL Normal 0.0-0.1 [facility] Comment on above: Performed By: #### B MP, CBCD #### [facility] [address] [place] [address]104 Basophils/100 WBC (Bld) 0.8 % Normal 0.0-1.0 [facility] Comment on above: Performed By: #### B MP, CBCD #### [facility] [address] [place] [address] Eosinophils (Bld) [#/Vol] 0.4 10*3/uL Normal 0.0-0.4 [facility] Comment on above: Performed By: #### B MP, CBCD #### [facility] [address] [place] [address] Eosinophils/100 WBC (Bld) 6.5 % High 1.0-4.0 [facility] Comment on above: Performed By: #### B MP, CBCD #### [facility] [address] [place] [address] Hematocrit (Bld) [Volume fraction] 42.4 % Normal 42.0-52.0 [facility] Comment on above: Performed By: #### B MP, CBCD #### [facility] [address] [place] [address] Hemoglobin (Bld) [Mass/Vol] 14.1 g/dL Normal 14.0-18.0 [facility] Comment on above: Performed By: #### B MP, CBCD #### [facility] [address] [place] [address] IG # 0.1 10*3/uL Normal 0.0-0.1 [facility] Comment on above: Performed By: #### B MP, CBCD #### [facility] [address] [place] [address] IG % 1.2 % High 0.0-1.0 [facility] Comment on above: Performed By: #### B MP, CBCD #### [facility] [address] [place] [address] Lymphocytes (Bld) [#/Vol] 1.5 10*3/uL Normal 1.3-4.4 [facility] Comment on above: Performed By: #### B MP, CBCD #### [facility] [address] [place] [address] Lymphocytes/100 WBC (Bld) 23.3 % Low 27.0-41.0 [facility] Comment on above: Performed By: #### B MP, CBCD #### [facility] [address] [place] [address] 38179 MCV (RBC) [Entitic vol] 88.9 fL Normal 80.0-94.0 [facility] Comment on above: Performed By: #### B MP, CBCD #### [facility] [address] [place] [address] MEAN CORPUSCULAR HGB 29.6 pg Normal 27.0-31.0 [facility] Comment on above: Performed By: #### B MP, CBCD #### [facility] [address] [place] [address]59[address] MEAN CORPUSCULAR HGB CONC 33.3 g/dl Normal 33.0-37.0 [facility] Comment on above: Performed By: #### B MP, CBCD #### [facility] [address] [place] [address] Monocytes (Bld) [#/Vol] 0.4 10*3/uL Normal 0.1-1.0 [facility] Comment on above: Performed By: #### B MP, CBCD #### [facility] [address] [place] [address] Monocytes/100 WBC (Bld) 6.8 % Normal 3.0-9.0 [facility] Comment on above: Performed By: #### B MP, CBCD #### [facility] [address] [place] [address] Neutrophils (Bld) [#/Vol] 4.0 10*3/uL Normal 2.3-7.9 [facility] Comment on above: Performed By: #### B MP, CBCD #### [facility] [address] [place] [address] 84409 Neutrophils/100 WBC (Bld) 61.4 % Normal 47.0-73.0 [facility] Comment on above: Performed By: #### B MP, CBCD #### [facility] [address] [place] [address]709 NUCLEATED RED BLOOD CELL 0.0 10*3/uL Normal 0.0-0.0 [facility] Comment on above: Performed By: #### B MP, CBCD #### [facility] [address] [place] [address] 29364 NUCLEATED RED BLOOD CELL 0.0 % Normal 0.0-0.0 [facility] Comment on above: Performed By: #### B MP, CBCD #### [facility] [address] [place] [address] PLATELET COUNT AUTOMATED 120 10*3/uL Low 130-400 [facility] Comment on above: Performed By: #### B MP, CBCD #### [facility] [address] [place] [address] Platelet mean volume (Bld) [Entitic vol] 8.9 fL Low 9.6-12.3 [facility] Comment on above: Performed By: #### B MP, CBCD #### [facility] [address] [place] [address] RBC (Bld) [#/Vol] 4.77 10*6/uL Normal 4.50-5.90 [facility] Comment on above: Performed By: #### B MP, CBCD #### [facility] [address] [place] [address] RED CELL DISTRI WIDTH 14.6 % High 0-14.5 [facility] Comment on above: Performed By: #### B MP, CBCD #### [facility] [address] [place] [address] WBC (Bld) [#/Vol] 6.4 10*3/uL Normal 4.8-10.8 [facility] Comment on above: Performed By: #### B MP, CBCD #### [facility] [address] [place] [address] BASIC METABOLIC PANELon 03-0 Calcium [Mass/Vol] 9.0 mg/dL Normal 8.5-10.5 [facility] Comment on above: Performed By: #### C OVID19 [id number] #### [facility] [address] [place] [address] Chloride [Moles/Vol] 98 mmol/L Normal 98-107 [facility] Comment on above: Performed By: #### C OVID19 [id number] #### [facility] [address] [place] [address] CO2 [Moles/Vol] 31 mmol/L Normal 21-32 [facility] Comment on above: Performed By: #### C OVID19 [id number] #### [facility] [address] [place] [address] Creatinine [Mass/Vol] 1.32 mg/dL High 0.70-1.30 [facility] Comment on above: Performed By: #### C OVID19 [id number] #### [facility] [address] [place] [address] EST GLOM FILT > [address] [facility] Comment on above: Result Comment: Result Units: mL/min/1.73 m2 Note: Persistent reduction for 3 months or more of an eGFR of <60 ml/min/1.73 m2 defines Chronic Kidney Disease (CKD). Patients with eGFR values greater than or equal to 60 ml/min/1.73 m2 may also have CKD if evidence of persistent proteinuria is present. STAGES OF CKD eGFR Stage 1 Kidney damage with normal kidney function >=90 Stage 2 Kidney damage with mild loss of kidney function 89-60 Stage 3a Mild to moderate loss of kidney function 59-44 Stage 3b Moderate to severe loss of kidney function 43-30 Stage 4 Severe loss of kidney function 29-15 Stage 5 Kidney failure < 15 . Performed By: #### C OVID19 [id number] #### [facility] [address] [place] [address] ESTIMATED GLOM FILT RATE 53 mL/min/ Low [facility] Comment on above: Performed By: #### C OVID19 [id number] #### [facility] [address] [place] [address] Glucose [Mass/Vol] 290 mg/dL High 65-99 [facility] Comment on above: Performed By: #### C OVID19 [id number] #### [facility] [address] [place] [address] Potassium [Moles/Vol] 3.2 mmol/L Low 3.5-5.1 [facility] Comment on above: Performed By: #### C OVID19 [id number] #### [facility] [address] [place] [address] Sodium [Moles/Vol] 136 mmol/L Normal 136-145 [facility] Comment on above: Performed By: #### C OVID19 [id number] #### [facility] [address] [place] [address] Urea nitrogen [Mass/Vol] 19 mg/dL Normal 7-24 [facility] Comment on above: Performed By: #### C OVID19 [id number] #### [facility] [address] [place] [address] PROTHROMBIN TIMEon 2 INTERNATIONAL NORM RATIO 2.0 Normal 2.0-3.5 [facility] Comment on above: Result Comment: INR THERAPEUTIC RANGE: GROUP A 2.0-3.0 INR GROUP B 2.5-3.5 INR GROUP A SUGGESTED INDICATIONS: PROPHYLAXIS AND TREATMENT OF VENOUS THROMBOSIS TREATMENT OF PULMONARY EMBOLISM ATRIAL FIBRILLATION GROUP B SUGGESTED INDICATIONS: MECHANICAL PROSTHETIC VALVES Performed By: #### B MP, CBCD #### [facility] [address] [place] [address] PT Coag (PPP) [Time] 19.3 s High 8.9-12.2 [facility] Comment on above: Performed By: #### B MP, CBCD #### [facility] [address] [place] [address] BASIC METABOLIC PANELon Calcium [Mass/Vol] 9.1 mg/dL Normal 8.5-10.5 [facility] Comment on above: Performed By: #### B MP, CBCD #### [facility] [address] [place] [address] Chloride [Moles/Vol] 95 mmol/L Low 98-107 [facility] Comment on above: Performed By: #### B MP, CBCD #### [facility] [address] [place] [address] CO2 [Moles/Vol] 30 mmol/L Normal 21-32 [facility] Comment on above: Performed By: #### B MP, CBCD #### [facility] [address] [place] [address] Creatinine [Mass/Vol] 1.44 mg/dL High 0.70-1.30 [facility] Comment on above: Performed By: #### B MP, CBCD #### [facility] [address] [place] [address] EST GLOM FILT 58 ml/min [facility] Comment on above: Result Comment: Result Units: mL/min/1.73 m2 Note: Persistent reduction for 3 months or more of an eGFR of <60 ml/min/1.73 m2 defines Chronic Kidney Disease (CKD). Patients with eGFR values greater than or equal to 60 ml/min/1.73 m2 may also have CKD if evidence of persistent proteinuria is present. STAGES OF CKD eGFR Stage 1 Kidney damage with normal kidney function >=90 Stage 2 Kidney damage with mild loss of kidney function 89-60 Stage 3a Mild to moderate loss of kidney function 59-44 Stage 3b Moderate to severe loss of kidney function 43-30 Stage 4 Severe loss of kidney function 29-15 Stage 5 Kidney failure < 15 . Performed By: #### B MP, CBCD #### [facility] [address] [place] [address] ESTIMATED GLOM FILT RATE 48 mL/min/ [facility] Comment on above: Performed By: #### B MP, CBCD #### [facility] [address] [place] [address] Glucose [Mass/Vol] 379 mg/dL High 65-99 [facility] Comment on above: Performed By: #### B MP, CBCD #### [facility] [address] [place] [address] Potassium [Moles/Vol] 3.2 mmol/L Low 3.5-5.1 [facility] Comment on above: Performed By: #### B MP, CBCD #### [facility] [address] [place] [address] Sodium [Moles/Vol] 133 mmol/L Low 136-145 [facility] Comment on above: Performed By: #### B MP, CBCD #### [facility] [address] [place] [address] Urea nitrogen [Mass/Vol] 22 mg/dL Normal 7-24 [facility] Comment on above: Performed By: #### B MP, CBCD #### [facility] [address] [place] [address] BLOOD CULTURE AEROBICon -0 BLOOD CULTURE AEROBIC BLOOD CULTURE AERO BIC NO BACTERIAL GROWTH BLOOD CULTURE ANAEROBIC NO BACTERIAL GROWTH Normal [facility] Comment on above: Performed By: #### B MP, CBCD #### [facility] [address] [place] [address]55 CBC with DIFFERENTIALon Basophils (Bld) [#/Vol] 0.1 10*3/uL Normal 0.0-0.1 [facility] Comment on above: Performed By: #### B MP, CBCD #### [facility] [address] [place] [address] 62716 Basophils/100 WBC (Bld) 0.8 % Normal 0.0-1.0 [facility] Comment on above: Performed By: #### B MP, CBCD #### [facility] [address] [place] [address] 15697 Eosinophils (Bld) [#/Vol] 0.3 10*3/uL Normal 0.0-0.4 [facility] Comment on above: Performed By: #### B MP, CBCD #### [facility] [address] [place] [address] 23915 Eosinophils/100 WBC (Bld) 3.8 % Normal 1.0-4.0 [facility] Comment on above: Performed By: #### B MP, CBCD #### [facility] [address] [place] [address] 83079 Hematocrit (Bld) [Volume fraction] 40.9 % Low 42.0-52.0 [facility] Comment on above: Performed By: #### B MP, CBCD #### [facility] [address] [place] [address] Hemoglobin (Bld) [Mass/Vol] 13.6 g/dL Low 14.0-18.0 [facility] Comment on above: Performed By: #### B MP, CBCD #### [facility] [address] [place] [address] IG # 0.1 10*3/uL Normal 0.0-0.1 [facility] Comment on above: Performed By: #### B MP, CBCD #### [facility] [address] [place] [address] IG % 1.2 % High 0.0-1.0 [facility] Comment on above: Performed By: #### B MP, CBCD #### [facility] [address] [place] [address] Lymphocytes (Bld) [#/Vol] 1.8 10*3/uL Normal 1.3-4.4 [facility] Comment on above: Performed By: #### B MP, CBCD #### [facility] [address] [place] [address] Lymphocytes/100 WBC (Bld) 23.6 % Low 27.0-41.0 [facility] Comment on above: Performed By: #### B MP, CBCD #### [facility] [address] [place] [address] MCV (RBC) [Entitic vol] 89.9 fL Normal 80.0-94.0 [facility] Comment on above: Performed By: #### B MP, CBCD #### [facility] [address] [place] [address] MEAN CORPUSCULAR HGB 29.9 pg Normal 27.0-31.0 [facility] Comment on above: Performed By: #### B MP, CBCD #### [facility] [address] [place] [address] MEAN CORPUSCULAR HGB CONC 33.3 g/dl Normal 33.0-37.0 [facility] Comment on above: Performed By: #### B MP, CBCD #### [facility] [address] [place] [address] Monocytes (Bld) [#/Vol] 0.5 10*3/uL Normal 0.1-1.0 [facility] Comment on above: Performed By: #### B MP, CBCD #### [facility] [address] [place] [address] 78337 Monocytes/100 WBC (Bld) 7.0 % Normal 3.0-9.0 [facility] Comment on above: Performed By: #### B MP, CBCD #### [facility] [address] [place] [address] 06195 Neutrophils (Bld) [#/Vol] 4.8 10*3/uL Normal 2.3-7.9 [facility] Comment on above: Performed By: #### B MP, CBCD #### [facility] [address] [place] [address] 41125 Neutrophils/100 WBC (Bld) 63.6 % Normal 47.0-73.0 [facility] Comment on above: Performed By: #### B MP, CBCD #### [facility] [address] [place] [address] 16896 NUCLEATED RED BLOOD CELL 0.0 10*3/uL Normal 0.0-0.0 [facility] Comment on above: Performed By: #### B MP, CBCD #### [facility] [address] [place] [address] 80426 NUCLEATED RED BLOOD CELL 0.0 % Normal 0.0-0.0 [facility] Comment on above: Performed By: #### B MP, CBCD #### [facility] [address] [place] [address] 90504 PLATELET COUNT AUTOMATED 138 10*3/uL Normal 130-400 [facility] Comment on above: Performed By: #### B MP, CBCD #### [facility] [address] [place] [address] 02371 Platelet mean volume (Bld) [Entitic vol] 9.6 fL Normal 9.6-12.3 [facility] Comment on above: Performed By: #### B MP, CBCD #### [facility] [address] [place] [address] RBC (Bld) [#/Vol] 4.55 10*6/uL Normal 4.50-5.90 [facility] Comment on above: Performed By: #### B MP, CBCD #### [facility] [address] [place] [address] RED CELL DISTRI WIDTH 14.6 % High 0-14.5 Eas [facility] Comment on above: Performed By: #### B MP, CBCD #### [facility] [address] [place] [address] WBC (Bld) [#/Vol] 7.5 10*3/uL Normal 4.8-10.8 [facility] Comment on above: Performed By: #### B MP, CBCD #### [facility] [address] [place] [address] PROTHROMBIN TIMEon 2 INTERNATIONAL NORM RATIO 1.7 Low 2.0-3.5 [facility] Comment on above: Result Comment: INR THERAPEUTIC RANGE: GROUP A 2.0-3.0 INR GROUP B 2.5-3.5 INR GROUP A SUGGESTED INDICATIONS: PROPHYLAXIS AND TREATMENT OF VENOUS THROMBOSIS TREATMENT OF PULMONARY EMBOLISM ATRIAL FIBRILLATION GROUP B SUGGESTED INDICATIONS: MECHANICAL PROSTHETIC VALVES Performed By: #### C OVID19 [id number] #### [facility] [address] [place] [address] PT Coag (PPP) [Time] 16.8 s High 8.9-12.2 [facility] Comment on above: Performed By: #### C OVID19 [id number] #### [facility] [address] [place] [address] NOVL CORONAVIRUS NAAon 07-07 SARS-CoV-2 (COVID-19) RNA LIV+probe Ql (Unsp spec) Not detected Normal Not Detected [facility] Comment on above: Order Comment: Is th is patient considered a Person Under Investigation? NADDITIONAL INSTRUCTIONS: FOR SNF Result Comment: This nucleic acid amplification test was developed and its performance characteristics determined by [employer]. Nucleic acid amplification tests include RT- PCR and TMA. This test has not been FDA cleared or approved. This test has been authorized by FDA under an Emergency Use Authorization (EUA). This test is only authorized for the duration of time the declaration that circumstances exist justifying the authorization of the emergency use of in vitro diagnostic tests for detection of SARS-CoV-2 virus and/or diagnosis of COVID-19 infection under section 564(b)(1) of the Act, 21 U.S.C. 360bbb-3(b) (1), unless the authorization is terminated or revoked sooner. When diagnostic testing is negative, the possibility of a false negative result should be considered in the context of a patient's recent exposures and the presence of clinical signs and symptoms consistent with COVID-19. An individual without symptoms of COVID-19 and who is not shedding SARS-CoV-2 virus would expect to have a negative (not detected) result in this assay. Performed By: #### C CHRIS PT, JAUN #### [facility] [address] [place] [address] BASIC METABOLIC PANELon 03-0 Calcium [Mass/Vol] 8.6 mg/dL Normal 8.5-10.5 [facility] Comment on above: Performed By: #### C CHRIS PT, BMP #### [facility] [address] [place] [address] Chloride [Moles/Vol] 102 mmol/L Normal 98-107 [facility] Comment on above: Performed By: #### C CHRIS PT, BMP #### [facility] [address] [place] [address] CO2 [Moles/Vol] 27 mmol/L Normal 21-32 [facility] Comment on above: Performed By: #### C CHRIS PT, BMP #### [facility] [address] [place] [address] Creatinine [Mass/Vol] 1.14 mg/dL Normal 0.70-1.30 [facility] Comment on above: Performed By: #### C CHRIS, PT, BMP #### [facility] [address] [place] [address] EST GLOM FILT > [address] [facility] Comment on above: Result Comment: Result Units: mL/min/1.73 m2 Note: Persistent reduction for 3 months or more of an eGFR of <60 ml/min/1.73 m2 defines Chronic Kidney Disease (CKD). Patients with eGFR values greater than or equal to 60 ml/min/1.73 m2 may also have CKD if evidence of persistent proteinuria is present. STAGES OF CKD eGFR Stage 1 Kidney damage with normal kidney function >=90 Stage 2 Kidney damage with mild loss of kidney function 89-60 Stage 3a Mild to moderate loss of kidney function 59-44 Stage 3b Moderate to severe loss of kidney function 43-30 Stage 4 Severe loss of kidney function 29-15 Stage 5 Kidney failure < 15 . Performed By: #### C CHRIS, PT, BMP #### [facility] [address] [place] [address] ESTIMATED GLOM FILT RATE > [address] [facility] Comment on above: Performed By: #### C CHRIS, PT, BMP #### [facility] [address] [place] [address] Glucose [Mass/Vol] 184 mg/dL High 65-99 [facility] Comment on above: Performed By: #### C BCNhan, PT, BMP #### [facility] [address] [place] [address] Potassium [Moles/Vol] 3.4 mmol/L Low 3.5-5.1 [facility] Comment on above: Performed By: #### C BCNhan, PT, BMP #### [facility] [address] [place] [address] Sodium [Moles/Vol] 135 mmol/L Low 136-145 [facility] Comment on above: Performed By: #### C BCNhan, PT, BMP #### [facility] [address] [place] [address] Urea nitrogen [Mass/Vol] 16 mg/dL Normal 7-24 [facility] Comment on above: Performed By: #### C BCD, PT, BMP #### [facility] [address] [place] [address] CBC with DIFFERENTIALon 03-0 -2021 Basophils (Bld) [#/Vol] 0.1 10*3/uL Normal 0.0-0.1 [facility] Comment on above: Performed By: #### C BCNhan, PT, BMP #### [facility] [address] [place] [address] Basophils/100 WBC (Bld) 1.0 % Normal 0.0-1.0 [facility] Comment on above: Performed By: #### C BCNhan, PT, BMP #### [facility] [address] [place] [address] Eosinophils (Bld) [#/Vol] 0.4 10*3/uL Normal 0.0-0.4 [facility] Comment on above: Performed By: #### C BCNhan, PT, BMP #### [facility] [address] [place] [address] Eosinophils/100 WBC (Bld) 5.3 % High 1.0-4.0 [facility] Comment on above: Performed By: #### C BCD, PT, BMP #### [facility] [address] [place] [address] Hematocrit (Bld) [Volume fraction] 41.1 % Low 42.0-52.0 [facility] Comment on above: Performed By: #### C BCD, PT, BMP #### [facility] [address] [place] [address] Hemoglobin (Bld) [Mass/Vol] 13.5 g/dL Low 14.0-18.0 [facility] Comment on above: Performed By: #### C BCD, PT, BMP #### [facility] [address] [place] [address] IG # 0.1 10*3/uL Normal 0.0-0.1 [facility] Comment on above: Performed By: #### C BCD, PT, BMP #### [facility] [address] [place] [address] IG % 1.3 % High 0.0-1.0 [facility] Comment on above: Performed By: #### C BCD, PT, BMP #### [facility] [address] [place] [address] Lymphocytes (Bld) [#/Vol] 1.7 10*3/uL Normal 1.3-4.4 [facility] Comment on above: Performed By: #### C BCD, PT, BMP #### [facility] [address] [place] [address] Lymphocytes/100 WBC (Bld) 23.5 % Low 27.0-41.0 [facility] Comment on above: Performed By: #### C BCD, PT, BMP #### [facility] [address] [place] [address] MCV (RBC) [Entitic vol] 91.3 fL Normal 80.0-94.0 [facility] Comment on above: Performed By: #### C BCD, PT, BMP #### [facility] [address] [place] [address] MEAN CORPUSCULAR HGB 30.0 pg Normal 27.0-31.0 [facility] Comment on above: Performed By: #### C BCD, PT, BMP #### [facility] [address] [place] [address] MEAN CORPUSCULAR HGB CONC 32.8 g/dl Low 33.0-37.0 [facility] Comment on above: Performed By: #### C BCD, PT, BMP #### [facility] [address] [place] [address] Monocytes (Bld) [#/Vol] 0.6 10*3/uL Normal 0.1-1.0 [facility] Comment on above: Performed By: #### C BCD, PT, BMP #### [facility] [address] [place] [address] Monocytes/100 WBC (Bld) 8.4 % Normal 3.0-9.0 [facility] Comment on above: Performed By: #### C BCD, PT, BMP #### [facility] [address] [place] [address] Neutrophils (Bld) [#/Vol] 4.3 10*3/uL Normal 2.3-7.9 [facility] Comment on above: Performed By: #### C BCD, PT, BMP #### [facility] [address] [place] [address] Neutrophils/100 WBC (Bld) 60.5 % Normal 47.0-73.0 [facility] Comment on above: Performed By: #### C BCD, PT, BMP #### [facility] [address] [place] [address] NUCLEATED RED BLOOD CELL 0.0 10*3/uL Normal 0.0-0.0 [facility] Comment on above: Performed By: #### C BCD, PT, BMP #### [facility] [address] [place] [address] NUCLEATED RED BLOOD CELL 0.0 % Normal 0.0-0.0 [facility] Comment on above: Performed By: #### C BCD, PT, BMP #### [facility] [address] [place] [address] PLATELET COUNT AUTOMATED 138 10*3/uL Normal 130-400 [facility] Comment on above: Performed By: #### C BCD, PT, BMP #### [facility] [address] [place] [address] Platelet mean volume (Bld) [Entitic vol] 9.1 fL Low 9.6-12.3 [facility] Comment on above: Performed By: #### C BCD, PT, BMP #### [facility] [address] [place] [address] RBC (Bld) [#/Vol] 4.50 10*6/uL Normal 4.50-5.90 [facility] Comment on above: Performed By: #### C BCD, PT, BMP #### [facility] [address] [place] [address] RED CELL DISTRI WIDTH 15.0 % High 0-14.5 E[facility] Comment on above: Performed By: #### C BCD, PT, BMP #### [facility] [address] [place] [address] WBC (Bld) [#/Vol] 7.1 10*3/uL Normal 4.8-10.8 [facility] Comment on above: Performed By: #### C BCD, PT, BMP #### [facility] [address] [place] [address] MAGNESIUMon 07-05-2021 Magnesium [Mass/Vol] 1.9 mg/dL Normal 1.5-2.1 [facility] Comment on above: Performed By: #### C BCD, PT, BMP #### [facility] [address] [place] [address] PROTHROMBIN TIMEon INTERNATIONAL NORM RATIO 1.3 Low 2.0-3.5 [facility] Comment on above: Result Comment: INR THERAPEUTIC RANGE: GROUP A 2.0-3.0 INR GROUP B 2.5-3.5 INR GROUP A SUGGESTED INDICATIONS: PROPHYLAXIS AND TREATMENT OF VENOUS THROMBOSIS TREATMENT OF PULMONARY EMBOLISM ATRIAL FIBRILLATION GROUP B SUGGESTED INDICATIONS: MECHANICAL PROSTHETIC VALVES Performed By: #### C BCD, PT, BMP #### [facility] [address] [place] [address] PT Coag (PPP) [Time] 12.6 s High 8.9-12.2 [facility] Comment on above: Performed By: #### C BCD, PT, BMP #### [facility] [address] [place] [address] ALBUMIN ([facility])on 07-05-19 Albumin [Mass/Vol] 3.5 g/dL Abnormal 3.7-4.7 [facility] Comment on above: Result Comment: Perf ormed at: CB - [facility] [address] [id number] Director Nursing Service: Luis Alfredo Gutierres PhD, Phone: [phone] Performed By: #### C OVID19 [id number] #### [facility] [address] [place] [address] BASIC METABOLIC PANELon Calcium [Mass/Vol] 8.6 mg/dL Normal 8.5-10.5 [facility] Comment on above: Performed By: #### C BCD, PT, BMP #### [facility] [address] [place] [address] Chloride [Moles/Vol] 104 mmol/L Normal 98-107 [facility] Comment on above: Performed By: #### C BCD, PT, BMP #### [facility] [address] [place] [address] CO2 [Moles/Vol] 28 mmol/L Normal 21-32 [facility] Comment on above: Performed By: #### C BCD, PT, BMP #### [facility] [address] [place] [address] Creatinine [Mass/Vol] 1.22 mg/dL Normal 0.70-1.30 [facility] Comment on above: Performed By: #### C BCD, PT, BMP #### [facility] [address] [place] [address] EST GLOM FILT > [address] [facility] Comment on above: Result Comment: Result Units: mL/min/1.73 m2 Note: Persistent reduction for 3 months or more of an eGFR of <60 ml/min/1.73 m2 defines Chronic Kidney Disease (CKD). Patients with eGFR values greater than or equal to 60 ml/min/1.73 m2 may also have CKD if evidence of persistent proteinuria is present. STAGES OF CKD eGFR Stage 1 Kidney damage with normal kidney function >=90 Stage 2 Kidney damage with mild loss of kidney function 89-60 Stage 3a Mild to moderate loss of kidney function 59-44 Stage 3b Moderate to severe loss of kidney function 43-30 Stage 4 Severe loss of kidney function 29-15 Stage 5 Kidney failure < 15 . Performed By: #### C CHRIS, PT, BMP #### [facility] [address] [place] [address] ESTIMATED GLOM FILT RATE 58 mL/min/ Low [facility] Comment on above: Performed By: #### Jagjit PEREZ PT, BMP #### [facility] [address] [place] [address] Glucose [Mass/Vol] 169 mg/dL High 65-99 [facility] Comment on above: Performed By: #### Jagjit PEREZ, PT, BMP #### [facility] [address] [place] [address] Potassium [Moles/Vol] 3.4 mmol/L Low 3.5-5.1 [facility] Comment on above: Performed By: #### Jagjit PEREZ, PT, BMP #### [facility] [address] [place] [address]18 Sodium [Moles/Vol] 138 mmol/L Normal 136-145 [facility] Comment on above: Performed By: #### Jagjit PEREZ, PT, BMP #### [facility] [address] [place] [address] Urea nitrogen [Mass/Vol] 17 mg/dL Normal 7-24 [facility] Comment on above: Performed By: #### Jagjit PEREZ, PT, BMP #### [facility] [address] [place] [address] CBC with DIFFERENTIALon 03-0 3-2021 Basophils (Bld) [#/Vol] 0.1 10*3/uL Normal 0.0-0.1 [facility] Comment on above: Performed By: #### C BCD, PT, BMP #### [facility] [address] [place] [address] Basophils/100 WBC (Bld) 0.8 % Normal 0.0-1.0 [facility] Comment on above: Performed By: #### C BCD, PT, BMP #### [facility] [address] [place] [address]50 Eosinophils (Bld) [#/Vol] 0.3 10*3/uL Normal 0.0-0.4 [facility] Comment on above: Performed By: #### C BCD, PT, BMP #### [facility] [address] [place] [address]7912 Eosinophils/100 WBC (Bld) 3.8 % Normal 1.0-4.0 [facility] Comment on above: Performed By: #### C BCD, PT, BMP #### [facility] [address] [place] [address]24 Hematocrit (Bld) [Volume fraction] 41.4 % Low 42.0-52.0 [facility] Comment on above: Performed By: #### C BCD, PT, BMP #### [facility] [address] [place] [address] 49610 Hemoglobin (Bld) [Mass/Vol] 13.6 g/dL Low 14.0-18.0 [facility] Comment on above: Performed By: #### C BCD, PT, BMP #### [facility] [address] [place] [address]1393 IG # 0.1 10*3/uL Normal 0.0-0.1 [facility] Comment on above: Performed By: #### C BCD, PT, BMP #### [facility] [address] [place] [address] 02845 IG % 1.2 % High 0.0-1.0 [facility] Comment on above: Performed By: #### C BCD, PT, BMP #### [facility] [address] [place] [address] Lymphocytes (Bld) [#/Vol] 1.7 10*3/uL Normal 1.3-4.4 [facility] Comment on above: Performed By: #### C BCD, PT, BMP #### [facility] [address] [place] [address] 23640 Lymphocytes/100 WBC (Bld) 25.2 % Low 27.0-41.0 [facility] Comment on above: Performed By: #### C BCD, PT, BMP #### [facility] [address] [place] [address]876 MCV (RBC) [Entitic vol] 89.4 fL Normal 80.0-94.0 [facility] Comment on above: Performed By: #### C BCD, PT, BMP #### [facility] [address] [place] [address]187 MEAN CORPUSCULAR HGB 29.4 pg Normal 27.0-31.0 [facility] Comment on above: Performed By: #### C BCD, PT, BMP #### [facility] [address] [place] [address] 42039 MEAN CORPUSCULAR HGB CONC 32.9 g/dl Low 33.0-37.0 [facility] Comment on above: Performed By: #### C BCD, PT, BMP #### [facility] [address] [place] [address]348 Monocytes (Bld) [#/Vol] 0.6 10*3/uL Normal 0.1-1.0 [facility] Comment on above: Performed By: #### C BCD, PT, BMP #### [facility] [address] [place] [address]3525 Monocytes/100 WBC (Bld) 9.2 % High 3.0-9.0 [facility] Comment on above: Performed By: #### C BCD, PT, BMP #### [facility] [address] [place] [address] Neutrophils (Bld) [#/Vol] 3.9 10*3/uL Normal 2.3-7.9 [facility] Comment on above: Performed By: #### C BCD, PT, BMP #### [facility] [address] [place] [address] Neutrophils/100 WBC (Bld) 59.8 % Normal 47.0-73.0 [facility] Comment on above: Performed By: #### C BCD, PT, BMP #### [facility] [address] [place] [address]855 NUCLEATED RED BLOOD CELL 0.0 10*3/uL Normal 0.0-0.0 [facility] Comment on above: Performed By: #### C BCD, PT, BMP #### [facility] [address] [place] [address]38 NUCLEATED RED BLOOD CELL 0.0 % Normal 0.0-0.0 [facility] Comment on above: Performed By: #### C BCD, PT, BMP #### [facility] [address] [place] [address] 05966 PLATELET COUNT AUTOMATED 142 10*3/uL Normal 130-400 [facility] Comment on above: Performed By: #### C BCD, PT, BMP #### [facility] [address] [place] [address]759 Platelet mean volume (Bld) [Entitic vol] 9.2 fL Low 9.6-12.3 [facility] Comment on above: Performed By: #### C BCD, PT, BMP #### [facility] [address] [place] [address] 46224 RBC (Bld) [#/Vol] 4.63 10*6/uL Normal 4.50-5.90 [facility] Comment on above: Performed By: #### C BCD, PT, BMP #### [facility] [address] [place] [address]392 RED CELL DISTRI WIDTH 14.9 % High 0-14.5 Eas [facility] Comment on above: Performed By: #### C CHRIS, PT, BMP #### [facility] [address] [place] [address] 91682 WBC (Bld) [#/Vol] 6.6 10*3/uL Normal 4.8-10.8 [facility] Comment on above: Performed By: #### C CHRIS, PT, BMP #### [facility] [address] [place] [address] GRAM STAINon 07-04-2021 Microscopic observation Gram stain Nom (Unsp spec) GRAM STAIN FEW WHITE BLOOD CELLS FEW GRAM POSITIVE COCCI IN PAIRS WOUND CULTURE SKIN DARYN:PROBABLE CONTAMINATE Normal [facility] Comment on above: Performed By: #### C CHRIS, PT, BMP #### [facility] [address] [place] [address] OPERATIVE NOTEon 07-04-2021 [employer] Report [place], [place] OPERATIVE NOTE NAME: CHARLI PORRAS UNIT #: [id number] ROOM: [facility] DOCTOR: BLAINE GUZMÁN DPM BIRTHDATE: [birth year] DOS: 07/04/2021 IN-HOUSE SURGICAL OPERATIVE REPORT PREOPERATIVE DIAGNOSIS: Osteomyelitis, fourth right toe. POSTOPERATIVE DIAGNOSIS: Osteomyelitis, fourth right toe. 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 ANESTHESIA: LMAC. ESTIMATED BLOOD LOSS: 5 mL TOURNIQUET: None. SURGEON: Blaine Guzmán DPM. STATISTICAL MACHINE MECHANIC: Luis Mckeon DPM. DRAINS: None. PACKING: None. PROCEDURE DETAILS: The patient was brought to the operating room and placed on the operating table in supine position. Anesthesia was administered per anesthesia department. Local infiltration of 0.5% Marcaine plain was utilized for local block consisting of approximately 3 mL. The right lower extremity was prepped and draped in the usual aseptic manner. Attention was directed to the base of the 4th right toe where 2 semi-elliptical incisions were performed around the middle of the proximal phalanx level. The incision was deepened via sharp and blunt dissection. Meticulous dissection was performed to the MPJ level and the toe was disarticulated from the MPJ. All necrotic nonviable tissue was excised. There were no further signs of infected tissue or necrotic tissue noted. The area was copiously flushed with sterile saline. The deep tissue was reapproximated with 3-0 Vicryl in a simple interrupted stitch manner. The skin was reapproximated with 3-0 nylon in a horizontal mattress stitch manner. There was approximately 5 mL of estimated blood loss during the procedure. Next, a sterile compressive dressing consisting of Xeroform, 4 x 4's, Kerlix and Juancarlos bandage was applied. The patient tolerated the procedure and anesthesia well and left the OR with vital signs stable and neurovascular status intact. The patient will return to the nursing unit after clearance by anesthesia and orders were written accordingly. The patient will be seen in-house later today and tomorrow by the resident ironer machine. BLAINE GUZMÁN DPM [place], [place] OPERATIVE NOTE NAME: CHARLI PORRAS UNIT #: [id number] ROOM: [facility] DOCTOR: BLAINE GUZMÁN DPM BIRTHDATE: [birth year] KE/YESENIA TID: [id number] CM:OPRECORD:OPERATIVE NOTE 1324 BLAINE GUZMÁN DPM 07/04/[address] [facility] POST OPERATIVE PROGRESS NOTE on 07-04-2021 [employer] Writer Report [place], [place] POST OPERATIVE PROGRESS NOTE NAME: CHARLI PORRAS UNIT #: [id number] STATUS: ADM IN SURGEON: RADU ANAND DPM ROOM: 425 DATE: 07/04/21 ATTENDING: HERIBERTO CHRISTIANSEN DO DATE OF : 48 POSTOPERATIVE PROGRESS NOTE BRIEF OPERATIVE NOTE Preoperative Diagnosis: Osteomyelitis Right 4th digit Postoperative Diagnosis: Same Procedure/Surgery: Amputation of Right 4th digit Estimated Blood Loss: 5 mL Specimens: Bone and soft tissue sent for culture and path Technical Note: Drains: None Packing: None Assistants: William Anand PGY-1 Anesthesia: MAC CM:POSTOP DICT: RADU ANAND DPM [id number] [facility] [employer] Writer Report [place], [place] POST OPERATIVE PROGRESS NOTE NAME: CHARLI PORRAS UNIT #: [id number] STATUS: ADM IN SURGEON: BLAINE GUZMÁN DPM ROOM: [facility] DATE: 07/04/21 ATTENDING: HERIBERTO CHRISTIANSEN DO DATE OF : [birth year] POSTOPERATIVE PROGRESS NOTE BRIEF OPERATIVE NOTE Preoperative Diagnosis: osteomyelitis 4th right toe Postoperative Diagnosis: same pending pathology Procedure/Surgery: amputation 4th right toe at the MPJ Estimated Blood Loss: 5cc Specimens: 4th right toe Technical Note: Drains: NA Packing: NA Assistants: Luis Anand DPM Anesthesia: LMAC at 1224 CM:POSTOP DICT: BLAINE GUZMÁN DPM Electronically Signed 07/04/21 1224 [id number] [facility] PROTHROMBIN TIMEon 2 INTERNATIONAL NORM RATIO 1.6 Low 2.0-3.5 [facility] Comment on above: Result Comment: INR THERAPEUTIC RANGE: GROUP A 2.0-3.0 INR GROUP B 2.5-3.5 INR GROUP A SUGGESTED INDICATIONS: PROPHYLAXIS AND TREATMENT OF VENOUS THROMBOSIS TREATMENT OF PULMONARY EMBOLISM ATRIAL FIBRILLATION GROUP B SUGGESTED INDICATIONS: MECHANICAL PROSTHETIC VALVES Performed By: #### C BCD, PT, BMP #### [facility] [address] [place] [address] PT Coag (PPP) [Time] 15.9 s High 8.9-12.2 [facility] Comment on above: Performed By: #### C BCD, PT, BMP #### [facility] [address] [place] [address] TOEon 07-04-2021 TOE -- ---- RUN DATE: 07/15/21 [facility] [place] [facility] LIVE PAGE 1 RUN TIME: 1509 Specimen Inquiry RUN USER: INTERFACE ---- PATIENT: CHARLI PORRAS LOC: 4E U #: [id number] AGE/SX: 71/M ROOM: [facility] RE07/02/[address]: HERIBERTO CHRISTIANSEN DO, DOB: [birth year] BED: 1 DIS: 07/12/21 STATUS: DIS IN TLOC: ---- SPEC #: [id number] RECD: 07/05/21 STATUS: OPAL CURRY #: [id number] ERIC: 07/04/21- SUBM DR: BLAINE GUZMÁN DPM ENTERED: 07/05/21 SP TYPE: TOE OTHR DR: HERIBERTO CHRISTIANSEN DO, KIMBERLY LYNN ORDERED: MARCEL, LEVEL 3 ([id number]), SURGICAL SPEC COMMENTS: REFERRING MEDICAL DOCTOR: MARCO SURGEON: MARCO # OF CONTAINERS 1 TISSUE SUBMITTED: RIGHT FOURTH TOE PROCEDURE: AMPUTATION RIGHT FOURTH TOE PRELIMINARY DIAGNOSIS: OSTEOMYLITIS RIGHT FOOT ADDENDUM Addendum #1 Entered: 07/12/21-153 The margin of excision is negative for osteomyelitis. Addendum Signed TESS ADRIAN 07/15/21 1509 ---- FINAL DIAGNOSIS (Based on gross and microscopic examination) Right fourth toe, amputation: Toe with ulceration, gangrenous changes and underlying bone with marked acute osteomyelitis. GROSS DESCRIPTION Specimen received in a container labeled right fourth toe. Specimen consists of a right fourth toe that measures 5 x 2 x 2 cm. The ventral aspect reveals an area of ulceration measuring 2 x 1 cm. The nail is deformed. The skin is peeling off. [employer] sections submitted in two cassettes. SURGICAL PROCEDURE: AMPUTATION RIGHT FOURTH TOE CONTINUED ON NEXT PAGE ---- RUN DATE: 07/15/21 [facility] LIVE PAGE 2 RUN TIME: 1509 Specimen Inquiry RUN USER: INTERFACE ---- SPEC #: [id number] PATIENT: CHARLI PORRAS #[id number] (Continued) ---- TISSUE SUBMITTED RIGHT FOURTH TOE ---- Signed TESS ADRIAN 07/10/21 1449 ---- END OF REPORT Normal [facility] Comment on above: Order Comment: REFER RING MEDICAL DOCTOR: KINDRA: MARCO# OF CONTAINERS 1TISSUE SUBMITTED: RIGHT FOURTH TOEPROCEDURE: AMPUTATION RIGHT FOURTH TOEPRELIMINARY DIAGNOSIS: OSTEOMYLITIS RIGHT FOOT Performed By: #### C BCD, PT, BMP #### [facility] [address] ARTERIAL LOWER EXT BILATo n 07-04-2021 USARTLEB Name: CHARLI PORRAS Phys: RADU ANAND DPM : 1950 Age: 71 Sex: M Acct: [id number] Loc: 425 1 Exam Date: 07/03/2021 Status: ADM IN Radiology No: [id number] Unit No: [id number] EXAM# TYPE/EXAM RESULT [id number] US/US ARTERIAL LOWER EXT BILAT SEE REPORT INDICATION: Right foot osteomyelitis. Non-palpable pulses. Pain at rest and exercise. Ulcerative changes Discoloration. ADDITIONAL HISTORY: DM. HTN. TECHNIQUE: Duplex evaluation is performed of the bilateral lower extremity arteries with use of color and pulse wave Doppler. Limited examination of the right foot due to bandages. COMPARISON: US LE Arterial 06/22/2017. FINDINGS: Limited examination of the right foot due to bandages. The peak velocities and waveforms in the right lower extremity are as follows: Right EIA: 163 cm/s, triphasic Right OBSTETRICS NURSE PRACTITIONER: 145 cm/s, triphasic Right Proximal SFA: 127 cm/s, triphasic Right Mid SFA: 129 cm/s, triphasic Right Distal SFA: 79 cm/s, triphasic Right Popliteal: 134 cm/s, triphasic Right MUSEUM DOCENT: 182 cm/s, biphasic Right KENN: 162 cm/s, biphasic Right Peroneal: no images obtained The peak velocities and waveforms in the left lower extremity are as follows: Left EIA: 167 cm/s, triphasic Left OBSTETRICS NURSE PRACTITIONER: 168/ cm/s, triphasic Left Proximal SFA: 157 cm/s, triphasic Left Mid SFA: 93 cm/s, triphasic Left Distal SFA: 99 cm/s, triphasic Left Popliteal: 102 cm/s, triphasic Left MUSEUM DOCENT: 191 cm/s, triphasic Left KENN: 113 cm/s, biphasic Left dorsalis pedis: 71 cm/s, monophasic PAGE 1 Signed Report (CONTINUED) Name: CHARLI PORRAS Phys: RADU ANAND DPM : 1950 Age: 71 Sex: M Acct: [id number] Loc: 425 1 Exam Date: 07/03/2021 Status: ADM IN Radiology No: [id number] Unit No: [id number] EXAM# TYPE/EXAM RESULT [id number] US/US ARTERIAL LOWER EXT BILAT SEE REPORT IMPRESSION: Limited evaluation. No evidence of significant arterial disease suggested. Signed by Lizz Maliro, MD REPORT SIGNED IN OTHER VENDOR SYSTEM 07/04/2021 Reported By: LIZZ STILL MD CC: ERICKA CASSIDY Technologist: ZULEMA WORTHY Transcribed Date/Time: 07/04/2021 (916) Point Of Care Specialist: LEEANNE Printed Date/Time: 07/04/2021 (916) PAGE [address] [facility] ACT PARTIAL THROMBO TIMEon 0 07-03-2021 ACT PARTIAL THROMBO TIME 46.1 SECONDS High 20.0-32.1 [facility] Comment on above: Result Comment: APTT THERAPEUTIC RANGE = 51.3 TO 62.7 SECONDS Performed By: #### C BCD, PT, BMP #### [facility] [address] [place] [address] 93687 ALBUMIN ([facility])on 07-04-19 Albumin [Mass/Vol] 3.8 g/dL Normal 3.7-4.7 [facility] Comment on above: Result Comment: Perf ormed at: CB - [facility] [place] [address] Director Nursing Service: Luis Alfredo Gutierres PhD, Phone: [phone] Performed By: #### B MP, CBCD #### [facility] [address] [place] [address] 55134 CBC with DIFFERENTIALon Basophils (Bld) [#/Vol] 0.0 10*3/uL Normal 0.0-0.1 [facility] Comment on above: Performed By: #### C BCD, PT, BMP #### [facility] [address] [place] [address] 59146 Basophils/100 WBC (Bld) 0.6 % Normal 0.0-1.0 [facility] Comment on above: Performed By: #### C BCD, PT, BMP #### [facility] [address] [place] [address] 44532 Eosinophils (Bld) [#/Vol] 0.2 10*3/uL Normal 0.0-0.4 [facility] Comment on above: Performed By: #### C BCD, PT, BMP #### [facility] [address] [place] [address] Eosinophils/100 WBC (Bld) 2.8 % Normal 1.0-4.0 [facility] Comment on above: Performed By: #### C BCNhan, PT, BMP #### [facility] [address] [place] [address] 24516 Hematocrit (Bld) [Volume fraction] 42.6 % Normal 42.0-52.0 [facility] Comment on above: Performed By: #### C BCNhan, PT, BMP #### [facility] [address] [place] [address] 96873 Hemoglobin (Bld) [Mass/Vol] 14.1 g/dL Normal 14.0-18.0 [facility] Comment on above: Performed By: #### C BCNhan, PT, BMP #### [facility] [address] [place] [address] 82367 IG # 0.1 10*3/uL Normal 0.0-0.1 [facility] Comment on above: Performed By: #### C BCNhan, PT, BMP #### [facility] [address] [place] [address] 96579 IG % 1.3 % High 0.0-1.0 [facility] Comment on above: Performed By: #### C BCNhan, PT, BMP #### [facility] [address] [place] [address] 16055 Lymphocytes (Bld) [#/Vol] 1.4 10*3/uL Normal 1.3-4.4 [facility] Comment on above: Performed By: #### C BCNhan, PT, BMP #### [facility] [address] [place] [address] 36983 Lymphocytes/100 WBC (Bld) 22.2 % Low 27.0-41.0 [facility] Comment on above: Performed By: #### C BCD, PT, BMP #### [facility] [address] [place] [address] MCV (RBC) [Entitic vol] 89.7 fL Normal 80.0-94.0 [facility] Comment on above: Performed By: #### C BCD, PT, BMP #### [facility] [address] [place] [address] 59756 MEAN CORPUSCULAR HGB 29.7 pg Normal 27.0-31.0 [facility] Comment on above: Performed By: #### C BCD, PT, BMP #### [facility] [address] [place] [address] 10157 MEAN CORPUSCULAR HGB CONC 33.1 g/dl Normal 33.0-37.0 [facility] Comment on above: Performed By: #### C BCD, PT, BMP #### [facility] [address] [place] [address] 20192 Monocytes (Bld) [#/Vol] 0.6 10*3/uL Normal 0.1-1.0 [facility] Comment on above: Performed By: #### C BCD, PT, BMP #### [facility] [address] [place] [address] 78357 Monocytes/100 WBC (Bld) 9.9 % High 3.0-9.0 [facility] Comment on above: Performed By: #### C BCD, PT, BMP #### [facility] [address] [place] [address] 13114 Neutrophils (Bld) [#/Vol] 4.0 10*3/uL Normal 2.3-7.9 [facility] Comment on above: Performed By: #### C BCD, PT, BMP #### [facility] [address] [place] [address] 44240 Neutrophils/100 WBC (Bld) 63.2 % Normal 47.0-73.0 [facility] Comment on above: Performed By: #### C BCD, PT, BMP #### [facility] [address] [place] [address] 71328 NUCLEATED RED BLOOD CELL 0.0 10*3/uL Normal 0.0-0.0 [facility] Comment on above: Performed By: #### C BCD, PT, BMP #### [facility] [address] [place] [address] 66608 NUCLEATED RED BLOOD CELL 0.0 % Normal 0.0-0.0 [facility] Comment on above: Performed By: #### C BCD, PT, BMP #### [facility] [address] [place] [address] 87485 PLATELET COUNT AUTOMATED 146 10*3/uL Normal 130-400 [facility] Comment on above: Performed By: #### C BCD, PT, BMP #### [facility] [address] [place] [address] 01732 Platelet mean volume (Bld) [Entitic vol] 9.5 fL Low 9.6-12.3 [facility] Comment on above: Performed By: #### C BCD, PT, BMP #### [facility] [address] [place] [address] 66397 RBC (Bld) [#/Vol] 4.75 10*6/uL Normal 4.50-5.90 [facility] Comment on above: Performed By: #### C BCD, PT, BMP #### [facility] [address] [place] [address] 09479 RED CELL DISTRI WIDTH 14.7 % High 0-14.5 [facility] Comment on above: Performed By: #### C BCD, PT, BMP #### [facility] [address] [place] [address] 04088 WBC (Bld) [#/Vol] 6.4 10*3/uL Normal 4.8-10.8 [facility] Comment on above: Performed By: #### C BCD, PT, BMP #### [facility] [address] [place] [address] 62198 CHEST AP ONLY (1V)on 022 [id number] Name: CHARLI PORRAS Phys: ANMOL MASCORRO DO : 1950 Age: 71 Sex: M Acct: [id number] Loc: 425 1 Exam Date: 07/03/2021 Status: ADM IN Radiology No: [id number] Unit No: [id number] EXAM# TYPE/EXAM RESULT [id number] RAD/CHEST AP ONLY (1V) SEE REPORT INDICATION: Hypoxia, denies chest complaints at this time. History of hypertension, diabetes. TECHNIQUE: Frontal chest was obtained at 1441 hours. COMPARISON: None Available. FINDINGS: The cardiomediastinal silhouette is normal in size. There is no consolidation or atelectasis in either lung. Small hiatal hernia is noted. There are no pleural effusions. There is no pneumothorax. No acute osseous process. Fusion hardware projects in the lower cervical spine. IMPRESSION: No acute process. Signed by Tiffani Guerin MD REPORT SIGNED IN OTHER VENDOR SYSTEM 07/03/2021 Reported By: TIFFANI GUERIN M.D. CC: ERICKA CASSIDY Technologist: CRISTINA NICOLE Transcribed Date/Time: 07/03/2021 (1613) Point Of Care Specialist: LEEANNE Printed Date/Time: 07/03/2021 (1613) [address] [facility] COMPREHENSIVE METABOLIC PANE Nolan 07-03-[address] [facility] Comment on above: Result Comment: See send out ALBUMIN from [facility]. Performed By: #### C BCNhan, PT, BMP #### [facility] [address] [place] [address] ALP [Catalytic activity/Vol] 85 U/L Normal 45-117 [facility] Comment on above: Performed By: #### C CHRIS, PT, BMP #### [facility] [address] [place] [address] ALT [Catalytic activity/Vol] 31 U/L Normal 12-78 [facility] Comment on above: Performed By: #### C BCNhan, PT, BMP #### [facility] [address] [place] [address] AST [Catalytic activity/Vol] 23 U/L Normal 3-35 [facility] Comment on above: Performed By: #### C BCD, PT, BMP #### [facility] [address] [place] [address] Bilirubin [Mass/Vol] 0.7 mg/dL Normal 0.2-1.0 [facility] Comment on above: Performed By: #### C BCD, PT, BMP #### [facility] [address] [place] [address] Calcium [Mass/Vol] 8.7 mg/dL Normal 8.5-10.5 [facility] Comment on above: Performed By: #### C BCD, PT, BMP #### [facility] [address] [place] [address] Chloride [Moles/Vol] 103 mmol/L Normal 98-107 [facility] Comment on above: Performed By: #### C BCD, PT, BMP #### [facility] [address] [place] [address] CO2 [Moles/Vol] 27 mmol/L Normal 21-32 [facility] Comment on above: Performed By: #### C BCD, PT, BMP #### [facility] [address] [place] [address] Creatinine [Mass/Vol] 1.16 mg/dL Normal 0.70-1.30 [facility] Comment on above: Performed By: #### C BCD, PT, BMP #### [facility] [address] [place] [address] EST GLOM FILT > [address] [facility] Comment on above: Result Comment: Result Units: mL/min/1.73 m2 Note: Persistent reduction for 3 months or more of an eGFR of <60 ml/min/1.73 m2 defines Chronic Kidney Disease (CKD). Patients with eGFR values greater than or equal to 60 ml/min/1.73 m2 may also have CKD if evidence of persistent proteinuria is present. STAGES OF CKD eGFR Stage 1 Kidney damage with normal kidney function >=90 Stage 2 Kidney damage with mild loss of kidney function 89-60 Stage 3a Mild to moderate loss of kidney function 59-44 Stage 3b Moderate to severe loss of kidney function 43-30 Stage 4 Severe loss of kidney function 29-15 Stage 5 Kidney failure < 15 . Performed By: #### C BCD, PT, BMP #### [facility] [address] [place] [address] ESTIMATED GLOM FILT RATE > [address] [facility] Comment on above: Performed By: #### C BCD, PT, BMP #### [facility] [address] [place] [address] Glucose [Mass/Vol] 171 mg/dL High 65-99 [facility] Comment on above: Performed By: #### C BCD, PT, BMP #### [facility] [address] [place] [address] 09034 Potassium [Moles/Vol] 3.4 mmol/L Low 3.5-5.1 [facility] Comment on above: Performed By: #### C BCD, PT, BMP #### [facility] [address] [place] [address] Protein [Mass/Vol] 7.0 g/dL Normal 6.4-8.2 [facility] Comment on above: Performed By: #### C BCD, PT, BMP #### [facility] [address] [place] [address] Sodium [Moles/Vol] 136 mmol/L Normal 136-145 [facility] Comment on above: Performed By: #### C BCD, PT, BMP #### [facility] [address] [place] [address] 54810 Urea nitrogen [Mass/Vol] 14 mg/dL Normal 7-24 [facility] Comment on above: Performed By: #### C BCD, PT, BMP #### [facility] [address] [place] [address] CONTRAST/ECHO COMPLETEon CRDECCON Name: CHARLI PORRAS Phys: GREGG BONNER DO : 1950 Age: 71 Sex: M Acct: [id number] Loc: 425 1 Exam Date: 07/03/2021 Status: ADM IN Radiology No: [id number] Unit No: [id number] EXAM# TYPE/EXAM RESULT [id number] ECHO/CONTRAST/ECHO COMPLETE SEE REPORT AN ADDENDUM IS INCLUDED ON THIS REPORT APPROVED REPORT EXAM: Comprehensive 2D, Doppler, and color-flow Echocardiogram with echo imaging agent. Patient Location: Inpatient Blood Pressure: 160/73 mmHg HR: 86 bpm Rhythm: NSR Other Information Study Quality: Technically Difficult Technically limited study due to body habitus, poor endocardial definition. Indications FLUID OVERLOAD Echo Enhancing Agent Indication: Endocardial border delineation Agent/Amount Used: Optison 3 cc Comments: Verbal consent obtained form patient for use of ultrasound enhancing agent. 2D Dimensions RVDd: 2.6 cm LVEF(%): 63.9 (>50%) IVSd: 1.5 (0.7-1.1cm) LVOT Diam: 2.1 (1.8-2.4cm) LVDd: 4.5 cm PWd: 1.3 (0.7-1.1cm) LVDs: 3.0 (2.5-4.0cm) Left Atrium: 3.6 (2.7-4.0cm) Rodriguez's LVEF: 63.9 % LV Single Plane 4CH: 76.7 % PAGE 1 Signed Report (CONTINUED) Name: CHARLI PORRAS Phys: GREGG BONNER DO : 1950 Age: 71 Sex: M Acct: [id number] Loc: 425 1 Exam Date: 07/03/2021 Status: ADM IN Radiology No: [id number] Unit No: [id number] EXAM# TYPE/EXAM RESULT [id number] ECHO/CONTRAST/ECHO COMPLETE SEE REPORT AN ADDENDUM IS INCLUDED ON THIS REPORT M-Mode Dimensions Left Atrium: 4.3 (2.5-4.0cm) Aortic Root: 3.3 (2.2-3.7cm) Aortic Cusp Exc.: 1.5 (1.5-2.0cm) Volumes Left Atrial Volume (Systole) Single Plane 4CH: 32.3 mL Aortic Valve AO V2 VTI: 36.3 cm UBALDO (VTI): 1.7 cm2 Mitral Valve MV PHT: 38.2 ms MV Mean Gr.: 1.8 mmHg MVA (PHT): 5.8 cm2 MV A Cristobal.: 0.0 m/s MV VTI: 21.4 cm Pulmonary Valve PV Peak Gr.: 6.1 mmHg Left Ventricle The left ventricle is normal size. Optison used to better visualize endocardial border. Unable to assess LV wall thickness. LVEF is 55-60%. Unable to assess diastolic function. Right Ventricle Right ventricle is not well visualized. Right ventricular systolic function could not be assessed. Atria Left atrium is not well visualized. Right atrium is not well visualized. PAGE 2 Signed Report (CONTINUED) Name: CHARLI PORRAS Phys: GREGG BONNER DO : 1950 Age: 71 Sex: M Acct: [id number] Loc: 425 1 Exam Date: 07/03/2021 Status: ADM IN Radiology No: [id number] Unit No: [id number] EXAM# TYPE/EXAM RESULT [id number] ECHO/CONTRAST/ECHO COMPLETE SEE REPORT AN ADDENDUM IS INCLUDED ON THIS REPORT Aortic Valve The aortic valve is not well visualized. The prosthetic aortic valve is not well visualized. Mitral Valve The mitral valve is normal in structure. Trace mitral regurgitation. Tricuspid Valve The tricuspid valve is not well visualized. Pulmonic Valve Pulmonic valve is not well visualized. Great Vessels The aortic root is normal in size. Pericardium There is no pericardial effusion. Critical Notification Critical Value: No No prior echo. TDS Optison used to better visualize endocardial border. Optison used to better visualize endocardial border. The left ventricle is normal size. LVEF is 55-60%. Right ventricle is not well visualized. Right ventricular systolic function could not be assessed. Left atrium is not well visualized. PAGE 3 Signed Report (CONTINUED) Name: CHARLI PORRAS Phys: GREGG BONNER DO : 1950 Age: 71 Sex: M Acct: [id number] Loc: 425 1 Exam Date: 07/03/2021 Status: ADM IN Radiology No: [id number] Unit No: [id number] EXAM# TYPE/EXAM RESULT [id number] ECHO/CONTRAST/ECHO COMPLETE SEE REPORT AN ADDENDUM IS INCLUDED ON THIS REPORT Right atrium is not well visualized. Technically very difficult study. REPORT SIGNED IN OTHER VENDOR SYSTEM 07/03/2021 Reported By: SARAH TONG MD ADDENDUM ADDENDUM APPROVED REPORT EXAM: Comprehensive 2D, Doppler, and color-flow Echocardiogram with echo imaging agent. Patient Location: Inpatient Blood Pressure: 160/73 mmHg HR: 86 bpm Rhythm: NSR Other Information Study Quality: Technically Difficult Technically limited study due to body habitus, poor endocardial definition. Indications FLUID OVERLOAD Echo Enhancing Agent Indication: Endocardial border delineation Agent/Amount Used: Optison 3 cc Comments: Verbal consent obtained form patient for use of ultrasound enhancing agent. PAGE 4 Signed Report (CONTINUED) Name: CHARLI PORRAS Phys: GREGG BONNER DO : 1950 Age: 71 Sex: M Acct: [id number] Loc: 425 1 Exam Date: 07/03/2021 Status: ADM IN Radiology No: [id number] Unit No: [id number] (more content not included)... Normal [facility] FOLIC ACIDon 07-03-2021 FOLIC ACID 23.06 ng/mL Normal >5.38 [facility] Comment on above: Result Comment: 0.35 - 3.7 ng/mL - Folate Deficiency 3.38 - 5.38 ng/mL - Indeterminate > 5.38 ng/mL - Normal Performed By: #### C BCD, PT, BMP #### [facility] [address] [place] [address] FREE T4on 07-03-2021 Free T4 [Mass/Vol] 0.85 ng/dL Normal 0.76-1.46 [facility] Comment on above: Performed By: #### C BCD, PT, BMP #### [facility] [address] [place] [address] [id number] 07-03-2021 ESTIMATED AVERAGE GLUCOSE [address] [facility] Comment on above: Performed By: #### C CHRIS PT, BMP #### [facility] [address] [place] [address] HbA1c (Bld) [Mass fraction] 9.5 % High 4.8-5.6 [facility] Comment on above: Result Comment: Standarization of method based on National Glycohemoglobin Standardization Program (NGSP). HEMOGLOBIN A1c(%) DEGREE of GLUCOSE CONTROL 5.7-6.4% Prediabetes range >6.4% Diagnosis of Diabetes <7% Glycemic control for adults with Diabetes Performed By: #### C CHRIS PT, BMP #### [facility] [address] [place] [address] 53408 LIPID PANELon 07-03-2021 Cholesterol [Mass/Vol] 102 mg/dL Normal <200 [facility] Comment on above: Performed By: #### C CHRIS PT, BMP #### [facility] [address] [place] [address] Cholesterol in HDL [Mass/Vol] 34 mg/dL Low 40-60 [facility] Comment on above: Performed By: #### C CHRIS PT, BMP #### [facility] [address] [place] [address] Cholesterol in LDL [Mass/Vol] 20 mg/dL Normal 9-159 [facility] Comment on above: Performed By: #### C CHRIS PT, BMP #### [facility] [address] [place] [address] 43836 Triglyceride [Mass/Vol] 241 mg/dL High <150 [facility] Comment on above: Result Comment: TRIGLYCERIDE RISK ASSESSMENT: 150-199 mg/dl BORDERLINE HIGH >200 mg//dl HIGH . Performed By: #### C BCD, PT, BMP #### [facility] [address] [place] [address] 70556 VLDL CHOLESTEROL 48 mg/dL High 6-40 [facility] Comment on above: Performed By: #### C BCD, PT, BMP #### [facility] [address] [place] [address] 78440 MAGNESIUMon 07-03-2021 Magnesium [Mass/Vol] 1.8 mg/dL Normal 1.5-2.1 [facility] Comment on above: Performed By: #### C BCD, PT, BMP #### [facility] [address] [place] [address] 58449 PHOSPHOROUSon 07-03-2021 PHOSPHOROUS 3.7 mg/dL Normal 2.5-4.9 [facility] Comment on above: Performed By: #### C BCD, PT, BMP #### [facility] [address] [place] [address] 87336 PROTHROMBIN TIMEon INTERNATIONAL NORM RATIO 2.5 Normal 2.0-3.5 [facility] Comment on above: Result Comment: INR THERAPEUTIC RANGE: GROUP A 2.0-3.0 INR GROUP B 2.5-3.5 INR GROUP A SUGGESTED INDICATIONS: PROPHYLAXIS AND TREATMENT OF VENOUS THROMBOSIS TREATMENT OF PULMONARY EMBOLISM ATRIAL FIBRILLATION GROUP B SUGGESTED INDICATIONS: MECHANICAL PROSTHETIC VALVES Performed By: #### C BCD, PT, BMP #### [facility] [address] [place] [address] 77896 PT Coag (PPP) [Time] 24.2 s High 8.9-12.2 [facility] Comment on above: Performed By: #### C BCD, PT, BMP #### [facility] [address] [place] [address] 12676 THYROID STIM HORMONE (HS)on 07-03-2021 THYROID STIM HORMONE (HS) 2.660 uIU/ml Normal 0.358-4.75 [facility] Comment on above: Performed By: #### C BCD, PT, BMP #### [facility] [address] [place] [address] 81134 VITAMIN B12on 07-03-2021 Cobalamin (Vitamin B12) [Mass/Vol] 528 pg/mL Normal 247-911 [facility] Comment on above: Result Comment: 247 - 911 pg/mL - Normal, Vitamin B12 Sufficiency Performed By: #### C BCD, PT, BMP #### [facility] [address] [place] [address] 30008 VITAMIN D, 25-HYDROXYon VITAMIN D, 25-HYDROXY 25.6 ng/mL Low 30-100 [facility] Comment on above: Result Comment: < 20 ng/mL - Vitamin D Deficiency 20 - 30 ng/mL - Vitamin D Insufficiency 30 - 100 ng/mL - Vitamin D sufficiency > 100 ng/mL - Vitamin D Toxicity Performed By: #### C OVID19 [id number] #### [facility] [address] [place] [address] ACT PARTIAL THROMBO TIMEon 0 07-02-2021 ACT PARTIAL THROMBO TIME 46.4 SECONDS High 20.0-32.1 [facility] Comment on above: Result Comment: APTT THERAPEUTIC RANGE = 51.3 TO 62.7 SECONDS Performed By: #### L ABASE, CMP, PT, CBCD, APTT #### [facility] [address] [place] [address] 76931 #### ALB SO #### [facility] [address] [place] [address] C-REACTIVE PROTEINon 022 C-REACTIVE PROTEIN 5.30 MG/DL High 0-0.3 [facility] Comment on above: Result Comment: This method is intended for the detection and evaluation of infection, tissue injury and inflammatory disease. This method is not intended for cardiovascular risk assessment. * Performed By: #### B MP, CBCD #### [facility] [address] [place] [address] 07257 CBC with DIFFERENTIALon Basophils (Bld) [#/Vol] 0.0 10*3/uL Normal 0.0-0.1 [facility] Comment on above: Performed By: #### L ABASE, CMP, PT, CBCD, APTT #### [facility] [address] [place] [address] #### ALB SO #### [facility] [address] [place] [address] Basophils/100 WBC (Bld) 0.6 % Normal 0.0-1.0 [facility] Comment on above: Performed By: #### L ABASE, CMP, PT, CBCD, APTT #### [facility] [address] [place] [address] #### ALB SO #### [facility] [address] [place] [phone] Eosinophils (Bld) [#/Vol] 0.2 10*3/uL Normal 0.0-0.4 [facility] Comment on above: Performed By: #### L ABASE, CMP, PT, CBCD, APTT #### [facility] [address] [place] [address] #### ALB SO #### [facility] [address] [place] [address] Eosinophils/100 WBC (Bld) 2.3 % Normal 1.0-4.0 [facility] Comment on above: Performed By: #### L ABASE, CMP, PT, CBCD, APTT #### [facility] [address] [place] [address] #### ALB SO #### [facility] [address] [place] [address] Hematocrit (Bld) [Volume fraction] 44.1 % Normal 42.0-52.0 [facility] Comment on above: Performed By: #### L ABASE, CMP, PT, CBCD, APTT #### [facility] [address] [place] [address] #### ALB SO #### [facility] [address] [place] [address] Hemoglobin (Bld) [Mass/Vol] 14.6 g/dL Normal 14.0-18.0 [facility] Comment on above: Performed By: #### L ABASE, CMP, PT, CBCD, APTT #### [facility] [address] [place] [address] #### ALB SO #### [facility] [address] [place] [address] IG # 0.1 10*3/uL Normal 0.0-0.1 [facility] Comment on above: Performed By: #### L ABASE, CMP, PT, CBCD, APTT #### [facility] [address] [place] [address] #### ALB SO #### [facility] [address] [place] [address] IG % 1.6 % High 0.0-1.0 [facility] Comment on above: Performed By: #### L ABASE, CMP, PT, CBCD, APTT #### [facility] [address] [place] [address] #### ALB SO #### [facility] [address] [place] [address] Lymphocytes (Bld) [#/Vol] 1.2 10*3/uL Low 1.3-4.4 [facility] Comment on above: Performed By: #### L ABASE, CMP, PT, CBCD, APTT #### [facility] [address] [place] [address] #### ALB SO #### [facility] [address] [place] [address] Lymphocytes/100 WBC (Bld) 17.0 % Low 27.0-41.0 [facility] Comment on above: Performed By: #### L ABASE, CMP, PT, CBCD, APTT #### [facility] [address] [place] [address] #### ALB SO #### [facility] [address] [place] [address] MCV (RBC) [Entitic vol] 90.9 fL Normal 80.0-94.0 [facility] Comment on above: Performed By: #### L ABASE, CMP, PT, CBCD, APTT #### [facility] [address] [place] [address] #### ALB SO #### [facility] [address] [place] [address] MEAN CORPUSCULAR HGB 30.1 pg Normal 27.0-31.0 [facility] Comment on above: Performed By: #### L ABASE, CMP, PT, CBCD, APTT #### [facility] [address] [place] [address] #### ALB SO #### [facility] [address] MEAN CORPUSCULAR HGB CONC 33.1 g/dl Normal 33.0-37.0 [facility] Comment on above: Performed By: #### L ABASE, CMP, PT, CBCD, APTT #### [facility] [address] [place] [address] #### ALB SO #### [facility] [address] [place] [address] Monocytes (Bld) [#/Vol] 0.5 10*3/uL Normal 0.1-1.0 [facility] Comment on above: Performed By: #### L ABASE, CMP, PT, CBCD, APTT #### [facility] [address] [place] [address] #### ALB SO #### [facility] [address] [place] [address] Monocytes/100 WBC (Bld) 7.5 % Normal 3.0-9.0 [facility] Comment on above: Performed By: #### L ABASE, CMP, PT, CBCD, APTT #### [facility] [address] [place] [address] #### ALB SO #### [facility] [address] [place] [address] Neutrophils (Bld) [#/Vol] 4.8 10*3/uL Normal 2.3-7.9 [facility] Comment on above: Performed By: #### L ABASE, CMP, PT, CBCD, APTT #### [facility] [address] [place] [address] #### ALB SO #### [facility] [address] [place] [address] Neutrophils/100 WBC (Bld) 71.0 % Normal 47.0-73.0 [facility] Comment on above: Performed By: #### L ABASE, CMP, PT, CBCD, APTT #### [facility] [address] [place] [address] #### ALB SO #### [facility] [address] [place] [address] NUCLEATED RED BLOOD CELL 0.0 10*3/uL Normal 0.0-0.0 [facility] Comment on above: Performed By: #### L ABASE, CMP, PT, CBCD, APTT #### [facility] [address] [place] [address] #### ALB SO #### [facility] [address] [place] [address] NUCLEATED RED BLOOD CELL 0.0 % Normal 0.0-0.0 [facility] Comment on above: Performed By: #### L ABASE, CMP, PT, CBCD, APTT #### [facility] [address] [place] [address] #### ALB SO #### [facility] [address] [place] [address] PLATELET COUNT AUTOMATED 120 10*3/uL Low 130-400 [facility] Comment on above: Performed By: #### L ABASE, CMP, PT, CBCD, APTT #### [facility] [address] [place] [address] #### ALB SO #### [facility] [address] [place] [address] Platelet mean volume (Bld) [Entitic vol] 8.9 fL Low 9.6-12.3 [facility] Comment on above: Performed By: #### L ABASE, CMP, PT, CBCD, APTT #### [facility] [address] [place] [address] #### ALB SO #### [facility] [address] [place] [address] RBC (Bld) [#/Vol] 4.85 10*6/uL Normal 4.50-5.90 [facility] Comment on above: Performed By: #### L ABASE, CMP, PT, CBCD, APTT #### [facility] [address] [place] [address] #### ALB SO #### [facility] [address] [place] [address] RED CELL DISTRI WIDTH 15.2 % High 0-14.5 [facility] Comment on above: Performed By: #### L ABASE, CMP, PT, CBCD, APTT #### [facility] [address] [place] [address] #### ALB SO #### [facility] [address] [place] [address] WBC (Bld) [#/Vol] 6.8 10*3/uL Normal 4.8-10.8 [facility] Comment on above: Performed By: #### L ABASE, CMP, PT, CBCD, APTT #### [facility] [address] [place] [address] #### ALB SO #### [facility] [address] [place] [address] COMPREHENSIVE METABOLIC PANE Nolan 07-02-[address] [facility] Comment on above: Result Comment: See send out ALBUMIN from [facility]. Performed By: #### L ABASE, CMP, PT, CBCD, APTT #### [facility] [address] [place] [address] #### ALB SO #### [facility] [address] [place] [address] ALP [Catalytic activity/Vol] 92 U/L Normal 45-117 [facility] Comment on above: Performed By: #### L ABASE, CMP, PT, CBCD, APTT #### [facility] [address] [place] [address] #### ALB SO #### [facility] [address] [place] [address] ALT [Catalytic activity/Vol] 34 U/L Normal 12-78 [facility] Comment on above: Performed By: #### L ABASE, CMP, PT, CBCD, APTT #### [facility] [address] [place] [address] #### ALB SO #### [facility] [address] [place] [address] AST [Catalytic activity/Vol] 21 U/L Normal 3-35 [facility] Comment on above: Performed By: #### L ABASE, CMP, PT, CBCD, APTT #### [facility] [address] [place] [address] #### ALB SO #### [facility] [address] [place] [address] Bilirubin [Mass/Vol] 0.8 mg/dL Normal 0.2-1.0 [facility] Comment on above: Performed By: #### L ABASE, CMP, PT, CBCD, APTT #### [facility] [address] [place] [address] #### ALB SO #### [facility] [address] [place] [address] Calcium [Mass/Vol] 9.0 mg/dL Normal 8.5-10.5 [facility] Comment on above: Performed By: #### L ABASE, CMP, PT, CBCD, APTT #### [facility] [address] [place] [address] #### ALB SO #### [facility] [address] [place] [address] Chloride [Moles/Vol] 103 mmol/L Normal 98-107 [facility] Comment on above: Performed By: #### L ABASE, CMP, PT, CBCD, APTT #### [facility] [address] [place] [address] #### ALB SO #### [facility] [address] [place] [address] CO2 [Moles/Vol] 27 mmol/L Normal 21-32 [facility] Comment on above: Performed By: #### L ABASE, CMP, PT, CBCD, APTT #### [facility] [address] [place] [address] #### ALB SO #### [facility] [address] [place] [address] Creatinine [Mass/Vol] 1.20 mg/dL Normal 0.70-1.30 [facility] Comment on above: Performed By: #### L ABASE, CMP, PT, CBCD, APTT #### [facility] [address] [place] [address] #### ALB SO #### [facility] [address] [place] [address] EST GLOM FILT > [address] [facility] Comment on above: Result Comment: Result Units: mL/min/1.73 m2 Note: Persistent reduction for 3 months or more of an eGFR of <60 ml/min/1.73 m2 defines Chronic Kidney Disease (CKD). Patients with eGFR values greater than or equal to 60 ml/min/1.73 m2 may also have CKD if evidence of persistent proteinuria is present. STAGES OF CKD eGFR Stage 1 Kidney damage with normal kidney function >=90 Stage 2 Kidney damage with mild loss of kidney function 89-60 Stage 3a Mild to moderate loss of kidney function 59-44 Stage 3b Moderate to severe loss of kidney function 43-30 Stage 4 Severe loss of kidney function 29-15 Stage 5 Kidney failure < 15 . Performed By: #### L ABASE, CMP, PT, CBCD, APTT #### [facility] [address] [place] [address] #### ALB SO #### [facility] [address] [place] [address] ESTIMATED GLOM FILT RATE 60 mL/min/ Normal [facility] Comment on above: Performed By: #### L ABASE, CMP, PT, CBCD, APTT #### [facility] [address] [place] [address] #### ALB SO #### [facility] [address] [place] [address] Glucose [Mass/Vol] 198 mg/dL High 65-99 [facility] Comment on above: Performed By: #### L ABASE, CMP, PT, CBCD, APTT #### [facility] [address] [place] [address] #### ALB SO #### [facility] [address] [place] [address] Potassium [Moles/Vol] 3.9 mmol/L Normal 3.5-5.1 [facility] Comment on above: Performed By: #### L ABASE, CMP, PT, CBCD, APTT #### [facility] [address] [place] [address] #### ALB SO #### [facility] [address] [place] [address] Protein [Mass/Vol] 7.4 g/dL Normal 6.4-8.2 [facility] Comment on above: Performed By: #### L ABASE, CMP, PT, CBCD, APTT #### [facility] [address] [place] [address] #### ALB SO #### [facility] [address] [place] [address] Sodium [Moles/Vol] 135 mmol/L Low 136-145 [facility] Comment on above: Performed By: #### L ABASE, CMP, PT, CBCD, APTT #### [facility] [address] [place] [address] #### ALB SO #### [facility] [address] [place] [address] Urea nitrogen [Mass/Vol] 14 mg/dL Normal 7-24 [facility] Comment on above: Performed By: #### L ABASE, CMP, PT, CBCD, APTT #### 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 ESR (Sed Rate)on 07-02-2021 ESR (Bld) [Velocity] 31 mm/h High 0-20 [facility] Comment on above: Performed By: #### B MP, CBCD #### [facility] [address] [place] [address] FOOT RIGHT (MIN 3 V)on 07-02 CRFOOTR Name: CHARLI PORRAS Phys: CRISS ESPINO MD : 1950 Age: 71 Sex: M Acct: [id number] Loc: 425 1 Exam Date: 07/02/2021 Status: ADM IN Radiology No: [id number] Unit No: [id number] EXAM# TYPE/EXAM RESULT [id number] EDRAD/FOOT RIGHT (MIN 3 V) SEE REPORT INDICATION: Right foot infection, osteomyelitis. TECHNIQUE: Three view(s) of the right foot. COMPARISON: None available. FINDINGS: No acute fracture is noted. There is a marked hallux valgus deformity of the great toe. There is subluxation at the first, second and third MTP joints. There is chronic erosion of the lateral aspect of the second and third metatarsal heads. 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 There are vascular calcifications of the small arteries in a patient who is likely diabetic. There are are small calcaneal enthesophytes. No soft tissue abnormality is seen. IMPRESSION: Marked hallux valgus deformity of the great toe. Subluxation at the first, second and third MTP joints. Chronic erosion of the lateral aspect of the second and third metatarsal heads. PAGE 1 Signed Report (CONTINUED) Name: CHARLI PORRAS Phys: CRISS ESPINO MD : 1950 Age: 71 Sex: M Acct: [id number] Loc: 425 1 Exam Date: 07/02/2021 Status: ADM IN Radiology No: [id number] Unit No: [id number] EXAM# TYPE/EXAM RESULT [id number] EDRAD/FOOT RIGHT (MIN 3 V) SEE REPORT Signed by Yahaira Christianson MD REPORT SIGNED IN OTHER VENDOR SYSTEM 07/02/2021 Reported By: YAHAIRA CHRISTIANSON CC: ERICKA CASSIDY Technologist: MURIEL GAUTAM Transcribed Date/Time: 07/02/2021 (1743) Point Of Care Specialist: LEEANNE Printed Date/Time: 07/02/2021 (107) PAGE [address] [facility] LA>2 RFLX FOLLOW UP AT 2 HRS on 07-02-2021 LA>2 RFLX FOLLOW UP AT 2 HRS 1.8 mmol/L Normal 0.4-2.0 [facility] Comment on above: Performed By: #### C OVID19 [id number] #### [facility] [address] [place] [address] LACTIC ACID BASELINEon 07-02 LACTIC ACID BASELINE 3.1 mmol/L Abnormal 0.4-2.0 [facility] Comment on above: Result Comment: VALUE IS A CRITICAL RESULT VERIFIED BY REPEAT ANALYSIS ON SAME SPECIMEN RESULT CALLED TO: ATNISHA ANDERSON READ BACK RESULTS AND DATE OF OF 48 VERIFIED 07/02/21 1554 RENA CAMARILLO Performed By: #### B MP, CBCD #### [facility] [address] [place] [address] NT-proBNPon 07-02-2021 Natriuretic peptide B (Bld) [Mass/Vol] 209.00 pg/mL High 0-125 [facility] Comment on above: Result Comment: Using the above Reference Ranges, NT-proBNP has a 99% negative predicative value and can therefore be valuable for ruling out acute CHF. However, many of the disorders that mimic acute CHF may result in elevated NT-proBNP levels as well. Among these are ACS (Acute Coronary Syndrome), acute PE (Pulmonary Embolism) and renal insufficiency. Additionally, morbid obesity has been shown to decrease NT-proBNP levels. When interpreting patient test results please be sure to take the patient's age, weight and clinical symptoms under consideration. . Performed By: #### C OVID19 [id number] #### [facility] [address] [place] [address] PROTHROMBIN TIMEon INTERNATIONAL NORM RATIO 2.6 Normal 2.0-3.5 [facility] Comment on above: Result Comment: INR THERAPEUTIC RANGE: GROUP A 2.0-3.0 INR GROUP B 2.5-3.5 INR GROUP A SUGGESTED INDICATIONS: PROPHYLAXIS AND TREATMENT OF VENOUS THROMBOSIS TREATMENT OF PULMONARY EMBOLISM ATRIAL FIBRILLATION GROUP B SUGGESTED INDICATIONS: MECHANICAL PROSTHETIC VALVES Performed By: #### L ABASE, CMP, PT, CBCD, APTT #### [facility] [address] [place] [address] #### ALB SO #### [facility] [address] [place] [address] PT Coag (PPP) [Time] 24.3 s High 8.9-12.2 [facility] Comment on above: Performed By: #### L ABASE, CMP, PT, CBCD, APTT #### [facility] [address] [place] [address] #### ALB SO #### [facility] [address] [place] [address] TIBIA AND FIBULA RIGHT (2 V) on 07-02-2021 CRTIBFIR Name: CHARLI PORRAS Phys: CRISS ESPINO MD : 1950 Age: 71 Sex: M Acct: [id number] Loc: 425 1 Exam Date: 07/02/2021 Status: ADM IN Radiology No: [id number] Unit No: [id number] EXAM# TYPE/EXAM RESULT [id number] EDRAD/TIBIA AND FIBULA RIGHT (2 SEE REPORT INDICATION: Osteomyelitis, right foot infection. TECHNIQUE: Two view(s), four images of the right tibia and fibula. COMPARISON: None available. FINDINGS: Status post right total knee arthroplasty. The hardware is intact without evidence of failure or loosening. No acute bony abnormality is seen in the right tibia or fibula, including no periosteal reaction or lytic changes. Degenerative changes are noted in the tibiotalar joint. Nonspecific soft tissue swelling is seen in the right lower extremity. IMPRESSION: Nonspecific soft tissue swelling without an acute bony abnormality in the right tibia or fibula. Status post right total hemiarthroplasty. Hardware is intact without evidence of failure. Signed by Tiffani Guerin MD REPORT SIGNED IN OTHER VENDOR SYSTEM 07/02/2021 Reported By: TIFFANI GUERIN M.D. CC: ERICKA CASSIDY Technologist: MURIEL GAUTAM Transcribed Date/Time: 07/02/2021 (1733) Point Of Care Specialist: LEEANNE Printed Date/Time: 07/02/2021 (3883) PAGE 1 Signed Report Normal [facility] VENOUS LOWER EXTREMITY RT on 07-02-2021 USVENLER Name: CHARLI PORRAS Phys: CRISS ESPINO MD : 1950 Age: 71 Sex: M Acct: [id number] Loc: H2016 1 Exam Date: 07/02/2021 Status: ADM IN Radiology No: [id number] Unit No: [id number] EXAM# TYPE/EXAM RESULT [id number] US/US VENOUS LOWER EXTREMITY RT SEE REPORT INDICATION: RLE swelling. History of DVT. TECHNIQUE: Real-time grayscale, color, and spectral doppler ultrasound imaging of the right lower extremity veins was performed. COMPARISON: None available. FINDINGS: The right common femoral, femoral, and popliteal veins demonstrate normal compressibility, normal phasic venous flow, and normal response to augmentation. There is no evidence for echogenic thrombi. The deep calf veins are not visualized. Multiple enlarged lymph nodes are visualized within the right inguinal region with the largest measuring 5.2 x 1.5 x 3.1 cm. IMPRESSION: No evidence for DVT within the visualized veins of the right lower extremity. Right groin adenopathy as described. Signed by Thompson Moreno D.O. REPORT SIGNED IN OTHER VENDOR SYSTEM 07/02/2021 Reported By: THOMPSON MORENO D.O. CC: ERICKA CASSIDY Technologist: ZULEMA WORTHY Transcribed Date/Time: 07/02/2021 (8734) Point Of Care Specialist: LEEANNE Printed Date/Time: 07/02/2021 (8584) [address] [facility] ATHENAon 06-26-2021 JEANNETTE Patient name: CHARLI PORRAS MR#: [id number] Date of Service: 06/26/21 Acc#: [id number] : 1950 Age: 71 Sex: M Dictated by: Maryan Tony MD Patient Name : CHARLI PORRAS (71yo, M) ID# [id number] Appt. Date/Time : 06/26/2021 07:45AM : 1950 Service Dept. : [facility] Provider : MARYAN TONY M.D. Insurance Med Primary: [facility] - MEDIBLUE (MEDICARE REPLACEMENT/ADVANTAGE - HMO) Insurance # : [id number] Policy/Group # : [id number] Med Secondary: [facility] (MEDICAID REPLACEMENT - HMO) Insurance # : [id number] Policy/Group # : [id number] Prescription: [facility] - Member is eligible. details Prescription: [facility] - Member is eligible. details Chief Complaint medication refill refill- tramadol and gabapentin; feet, legs and back pain Patient's Care Team Primary Care Provider: ERICKA CASSIDY MD: [address] [place] [address], , Referring Provider: SARAH FELIPE: [address] [place] [address], Ph [phone], Other: CHARISSE VALENCIA MD: [address] [place] [address], , ax Patient's Pharmacies [facility] ([facility]): [address] [address], Ph [phone], Vitals BP: 156/79 sitting L arm 06/26/2021 07:54 am Ht: 5 ft 10 in (177.8 cm) 06/26/2021 07:52 am Wt: 314 lbs (142.43 kg) 06/26/2021 07:52 am O2Sat: 96% Room Air at Rest 06/26/2021 07:53 am Pulse: 70 bpm 06/26/2021 07:53 am RR: 18 06/26/2021 07:52 am Pain Scale: 6 06/26/2021 07:52 am Allergies Reviewed Allergies NKDA Medications Reviewed Medications Name: allopurinoL 100 mg tablet TAKE 1 TABLET BY MOUTH EVERY DAY Date: 06/10/21 filled Source: [facility] Name: atorvastatin 10 mg tablet TAKE 1 TABLET BY MOUTH EVERY DAY Date: 06/10/21 filled Source: martharimartha Name: bumetanide 1 mg tablet TAKE 1 TABLET BY MOUTH EVERY DAY NEEDED FOR LEGSWELLING Date: 06/10/21 filled Source: [facility] Name: busPIRone 15 mg tablet TAKE ONE (1) TABLET BY MOUTH TWICE DAILY Date: 06/16/21 filled Source: [facility] Name: Centrum Silver Men 300 mcg-600 mcg-300 mcg tablet Take 1 tablet(s) every ay by oral route. Date: 10/10/20 entered Source: Kerri Christensen Name: cloNIDine 0.2 mg/24 hr weekly transdermal patch APPLY 1 PATCH TOPICALLY EERY WEEK FOR ANXIETY Date: 06/10/21 filled Source: martharimartha Name: cloNIDine HCL 0.1 mg tablet TAKE 1 TABLET BY MOUTH TWICE DAILY NEEDED Date: 05/31/21 filled Source: [facility] Name: diclofenac 1 % topical gel APPLY 2 GRAMS TOPICALLY TWICE DAILY TO AFFECTE AREA(S) Date: 11/13/20 filled Source: [facility] Name: donepeziL 10 mg tablet TAKE 1 TABLET BY MOUTH EVERY DAY IN THE EVENING Date: 06/10/21 filled Source: martharimartha Name: doxazosin 2 mg tablet TAKE 1 TABLET BY MOUTH ONCE DAILY Date: 06/10/21 filled Source: martharimartha Name: DULoxetine 60 mg capsule,delayed release TAKE 1 CAPSULE BY MOUTH EVERY DAY Date: 06/05/21 filled Source: martharimartha Name: ezetimibe 10 mg tablet TAKE 1 TABLET BY MOUTH EVERY DAY Date: 06/10/21 filled Source: [facility] Name: FLUoxetine 40 mg capsule TAKE 1 CAPSULE BY MOUTH ONCE DAILY *EMERGENCY REILL* Date: 06/10/21 filled Source: martharimartha Name: gabapentin 800 mg tablet TAKE 1 TABLET BY MOUTH THREE TIMES DAILY Date: 06/26/21 prescribed Source: Maryan Tony M.D. Name: glipiZIDE 5 mg tablet TAKE TWO (2) TABLETS BY MOUTH TWICE DAILY BEFORE MELS Date: 06/10/21 filled Source: [facility] Name: hydrOXYzine pamoate 50 mg capsule TAKE 1 CAPSULE BY MOUTH FOUR TIMES JILLIAN NEEDED *EMERGENCY REFILL* Date: 06/10/21 filled Source: surescripts Name: Januvia 25 mg tablet TAKE 1 TABLET BY MOUTH EVERY DAY Date: 06/10/21 filled Source: surescripts Name: Jardiance 25 mg tablet TAKE 1 TABLET BY MOUTH EVERY DAY IN THE MORNING Date: 06/10/21 filled Source: [facility]rescript[facility] Name: pramipexole 0.125 mg tablet TAKE 1 TABLET BY MOUTH TWICE DAILY Date: 06/10/21 filled Source: surescripts Name: QUEtiapine 200 mg tablet TAKE 1 TABLET BY MOUTH AT BEDTIME Date: 06/18/21 filled Source: surescript[facility] Name: QUEtiapine 50 mg tablet TAKE 1 TABLET BY MOUTH EVERY MORNING Date: 06/23/21 filled Source: [facility]rescripts Name: risperiDONE 1 mg tablet TAKE 1 TABLET BY MOUTH EVERY EVENING Date: 03/04/21 filled Source: surescripts Name: rivastigmine 13.3 mg/24 hour transdermal patch Apply 1 patch(es) every da by transdermal route. Date: 05/22/21 entered Source: Anastasia Singletary Name: rivastigmine 4.6 mg/24 hour transdermal patch APPLY 1 PATCH TRANSDERMALLYONCE DAILY. DO NOT APPLY TO SAME AREA MORE THAN ONCE EVERY 14 DAYS. *EMERGENCY REFILL* Date: 06/10/21 filled Source: martharimartha Name: rivastigmine 9.5 mg/24 hour transdermal patch APPLY 1 PATCH TO SKIN ON (more content not included)... [facility] [place] 05-22-2021 [place] Patient name: CHARLI PORRAS MR#: [id number] Date of Service: 05/22/21 Acc#: [id number] : 1950 Age: 71 Sex: M Dictated by: Maryan Tony MD Patient Name : CHARLI PORRAS (71yo, M) ID# [id number] Appt. Date/Time : 05/22/2021 01:15PM : 1950 Service Dept. : [facility]IN MANAGEMENT Provider : MARYAN TONY M.D. Insurance Med Primary: [employer] (MEDICARE REPLACEMENT/ADVANTAGE - HMO) Insurance # : [id number] Policy/Group # : [id number] Med Secondary: [facility] ([place] - [place]MO) Insurance # : [id number] Policy/Group # : [id number] Prescription: [facility] - Member is eligible. details Prescription: [facility] - Member is eligible. details Chief Complaint *pain management refills; c/o pain shoulders, back legs - present states these last two weks pt has been in excruciating pain Patient's Care Team Primary Care Provider: ERICKA CASSIDY MD: [address] [place] [address], , Referring Provider: SARAH FELIPEI: [address] [place] [address], Ph [phone], Other: CHARISSE VALENCIA MD: [address] [place] [address], , ax Patient's Pharmacies [id number] (ERX): [address] [address], Ph [phone], [facility] 05/22/2021 01:14 pm BP: Ht: 5 ft 10 in (177.8 cm) Pain Scale: 6 Allergies Allergies not reviewed (last reviewed 03/20/2021) NKDA Medications Reviewed Medications Name: allopurinoL 100 mg tablet TAKE 1 TABLET BY MOUTH EVERY DAY Date: 05/10/21 filled Source: ursula Name: atorvastatin 10 mg tablet TAKE 1 TABLET BY MOUTH EVERY DAY Date: 05/10/21 filled Source: ursula Name: bumetanide 1 mg tablet TAKE 1 TABLET BY MOUTH EVERY DAY NEEDED FOR LEGSWELLING Date: 05/10/21 filled Source: ursula Name: Centrum Silver Men 300 mcg-600 mcg-300 mcg tablet Take 1 tablet(s) every ay by oral route. Date: 10/10/20 entered Source: Kerri Christensen Name: cloNIDine HCL 0.1 mg tablet TAKE 1 TABLET BY MOUTH TWICE DAILY NEEDED Date: 05/08/21 filled Source: martharipts Name: diclofenac 1 % topical gel APPLY 2 GRAMS TOPICALLY TWICE DAILY TO AFFECTE AREA(S) Date: 11/13/20 filled Source: martharipts Name: donepeziL 10 mg tablet TAKE 1 TABLET BY MOUTH EVERY DAY IN THE EVENING Date: 05/10/21 filled Source: josescripts Name: doxazosin 2 mg tablet TAKE 1 TABLET BY MOUTH ONCE DAILY Date: 05/10/21 filled Source: surescripts Name: ezetimibe 10 mg tablet TAKE 1 TABLET BY MOUTH EVERY DAY Date: 05/10/21 filled Source: surescripts Name: gabapentin 800 mg tablet TAKE 1 TABLET BY MOUTH THREE TIMES A DAY Date: 05/22/21 prescribed Source: Maryan Tony M.D. Name: glipiZIDE 5 mg tablet TAKE TWO (2) TABLETS BY MOUTH TWICE DAILY BEFORE MELS Date: 05/10/21 filled Source: josescripts Name: Januvia 25 mg tablet TAKE 1 TABLET BY MOUTH EVERY DAY Date: 05/10/21 filled Source: surescripts Name: Jardiance 25 mg tablet TAKE 1 TABLET BY MOUTH EVERY DAY IN THE MORNING Date: 05/10/21 filled Source: josescripts Name: pramipexole 0.125 mg tablet TAKE 1 TABLET BY MOUTH TWICE DAILY Date: 05/10/21 filled Source: martharipts Name: risperiDONE 1 mg tablet TAKE 1 TABLET BY MOUTH EVERY EVENING Date: 03/04/21 filled Source: martharimartha Name: rivastigmine 13.3 mg/24 hour transdermal patch Apply 1 patch(es) every da by transdermal route. Date: 05/22/21 entered Source: Anastasia Singletary Name: rivastigmine 4.6 mg/24 hour transdermal patch APPLY 1 PATCH TRANSDERMALLYONCE DAILY. DO NOT APPLY TO SAME AREA MORE THAN ONCE EVERY 14 DAYS. Date: 05/18/21 filled Source: ursula Name: rivastigmine 9.5 mg/24 hour transdermal patch apply 1 (ONE) patch topicaly once daily do not apply to same area more than once every 14 days Date: 05/15/21 filled Source: martharipts Name: SEROqueL 200 mg tablet Take 1 tablet(s) every day by oral route at bedtim. Date: 05/22/21 entered Source: Anastasia Singletary Name: Slow-Mag 71.5 mg tablet,delayed release Take 2 tablet(s) twice a day by oal route for 30 days. Date: 03/19/20 filled Source: ursual Name: traMADoL 50 mg tablet TAKE 1 TABLET BY MOUTH FOUR TIMES DAILY NEEDED FR PAIN Date: 05/22/21 prescribed Source: Maryan Tony M.D. Name: Viibryd 20 mg tablet Take 1 tablet(s) every day by oral route. Date: 05/22/21 entered Source: Anastasia Singletary Name: warfarin 5 mg tablet TAKE 1 TABLET BY MOUTH EVERY DAY Date: 05/10/21 filled Source: martharimartha Name: Zanaflex 4 mg tablet TAKE ONE TABLET AT NIGHT NEEDED FOR PAIN/SPASM Date: 05/22/21 prescribed Source: Maryan Tony M.D. 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 [facility] 03-20-2021 [place] Patient name: CHARLI PORRAS MR#: [id number] Date of Service: 03/20/21 Acc#: [id number] : 1950 Age: 70 Sex: M Dictated by: Maryan Tony MD Patient Name : CHARLI PORRAS (70yo, M) ID# [id number] Appt. Date/Time : 03/20/2021 01:15PM : 1950 [facility] Provider : MARYAN TONY M.D. Insurance Med Primary: [facility] [facility] [place] (MEDICARE REPLACEMENT/ADVANTAGE - HMO) Insurance # : [id number] Policy/Group # : [id number] Med Secondary: [facility] ([place] REPLAC[place] - [place]MO) Insurance # : [id number] Policy/Group # : [id number] Prescription: [facility] - Member is eligible. details Prescription: [facility] - Member is eligible. details Chief Complaint *pain management REFILL Patient's Care Team Primary Care Provider: ERICKA CASSIDY MD: [address] [place] [address], , Referring Provider: SARAH FELIPEI: [address] [place] [address], Ph [phone], Other: CHARISSE VALENCIA MD: [address] [place] [address], , ax Patient's Pharmacies [facility] (ERX): [address] [address], Ph [phone], Vitals BP: 160/79 03/20/2021 01:25 pm Ht: 5 ft 10 in (177.8 cm) 03/20/2021 01:18 pm O2Sat: 95% 03/20/2021 01:25 pm Pulse: 85 bpm 03/20/2021 01:25 pm RR: 20 03/20/2021 01:25 pm Pain Scale: 7 03/20/2021 01:25 pm Allergies Reviewed Allergies NKDA Medications Reviewed Medications Name: allopurinoL 100 mg tablet TAKE 1 TABLET BY MOUTH EVERY DAY Date: 03/13/21 filled Source: ursula Name: atorvastatin 10 mg tablet TAKE 1 TABLET BY MOUTH EVERY DAY Date: 03/13/21 filled Source: martharimartha Name: bumetanide 1 mg tablet TAKE 1 TABLET BY MOUTH EVERY DAY NEEDED FOR LEGSWELLING Date: 03/08/21 filled Source: ursula Name: busPIRone 15 mg tablet TAKE ONE (1) TABLET BY MOUTH TWICE DAILY Date: 03/13/21 filled Source: martharipts Name: Centrum Silver Men 300 mcg-600 mcg-300 mcg tablet Take 1 tablet(s) every ay by oral route. Date: 10/10/20 entered Source: Kerri Christensen Name: diclofenac 1 % topical gel APPLY 2 GRAMS TOPICALLY TWICE DAILY TO AFFECTE AREA(S) Date: 11/13/20 filled Source: martharimartha Name: doxazosin 2 mg tablet TAKE 1 TABLET BY MOUTH ONCE DAILY Date: 03/18/21 filled Source: martharimartha Name: DULoxetine 60 mg capsule,delayed release TAKE ONE (1) CAPSULE BY MOUTH Date: 03/13/21 filled Source: martharipts Name: ezetimibe 10 mg tablet TAKE 1 TABLET BY MOUTH EVERY DAY Date: 03/13/21 filled Source: josescripts Name: gabapentin 800 mg tablet TAKE 1 TABLET BY MOUTH TWICE DAILY Date: 01/23/21 filled Source: josescripts Name: glipiZIDE 5 mg tablet TAKE TWO (2) TABLETS BY MOUTH TWICE DAILY BEFORE MELS Date: 03/13/21 filled Source: josescripts Name: Januvia 25 mg tablet TAKE 1 TABLET BY MOUTH EVERY DAY Date: 03/13/21 filled Source: josescripts Name: Jardiance 25 mg tablet TAKE 1 TABLET BY MOUTH EVERY DAY IN THE MORNING Date: 03/13/21 filled Source: martharipts Name: mupirocin 2 % topical ointment APPLY TO THE AFFECTED AREA(S) TWICE DAILY ith dressing FOR 14 DAYS Date: 02/12/21 filled Source: martharipts Name: pioglitazone 15 mg tablet TAKE 1 TABLET BY MOUTH EVERY DAY Date: 11/13/20 filled Source: martharipts Name: pramipexole 0.125 mg tablet TAKE 1 TABLET BY MOUTH TWICE DAILY Date: 03/13/21 filled Source: martharipts Name: risperiDONE 1 mg tablet TAKE 1 TABLET BY MOUTH EVERY EVENING Date: 03/04/21 filled Source: josescripts Name: Slow-Mag 71.5 mg tablet,delayed release Take 2 tablet(s) twice a day by oal route for 30 days. Date: 03/19/20 filled Source: martharipts Name: tiZANidine 4 mg tablet TAKE 1 TABLET BY MOUTH AT BEDTIME Date: 03/13/21 filled Source: martharipts Name: traMADoL 50 mg tablet TAKE 1 TABLET BY MOUTH FOUR TIMES DAILY NEEDED FR PAIN Date: 03/20/21 prescribed Source: Maryan Tony M.D. 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 Normal [facility] .Auto Diffon 07-16-2020 Ammonia (P) [Mass/Vol] 0.60 10 3/mcL Normal 0.09-1.40 [facility] ([place]) Comment on above: Performed By: #### C BC, ADIFF, ANEU, BMP, GFR, TROPHS #### [address] [address] Basophils (Bld) [#/Vol] 0.10 10 3/mcL Normal 0.00-0.27 [facility] ([place]) Comment on above: Performed By: #### C BC, ADIFF, ANEU, BMP, GFR, TROPHS #### [address] [address] Basophils/100 WBC (Bld) 1.0 % Normal 0.0-2.5 [facility] ([place]) Comment on above: Performed By: #### C BC, ADIFF, ANEU, BMP, GFR, TROPHS #### [address] [address] Eosinophils (Bld) [#/Vol] 0.20 10 3/mcL Normal 0.00-0.65 [facility] ([place]) Comment on above: Performed By: #### C BC, ADIFF, ANEU, BMP, GFR, TROPHS #### [address] [address] Eosinophils/100 WBC (Bld) 2.5 % Normal 0.0-6.0 [facility] ([place]) Comment on above: Performed By: #### C BC, ADIFF, ANEU, BMP, GFR, TROPHS #### [address] [address] Lymphocytes (Bld) [#/Vol] 1.60 10 3/mcL Normal 0.90-4.32 [facility] ([place]) Comment on above: Performed By: #### C BC, ADIFF, ANEU, BMP, GFR, TROPHS #### [address] [address] Lymphocytes/100 WBC (Bld) 21.0 % Normal 20.0-40.0 [facility] ([place]) Comment on above: Performed By: #### C BC, ADIFF, ANEU, BMP, GFR, TROPHS #### [address] [address] Monocytes/100 WBC (Bld) 7.6 % Normal 2.0-13.0 [facility] ([place]) Comment on above: Performed By: #### C BC, ADIFF, ANEU, BMP, GFR, TROPHS #### [address] [address] Neutrophils/100 WBC (Bld) 67.9 % Normal 50.0-75.0 [facility] ([place]) Comment on above: Performed By: #### C BC, ADIFF, ANEU, BMP, GFR, TROPHS #### [address] [address] .GFRon 07-16-2020 GFR >60 Normal [facility] ([place]) Comment on above: Result Comment: GFR Population mean for , Non- Americans Ages 20-29 = 116 mL/min/1.73 sq.m. Ages 30-39 = 107 mL/min/1.73 sq.m. Ages 40-49 = 99 mL/min/1.73 sq.m. Ages 50-59 = 93 mL/min/1.73 sq.m. Ages 60-69 = 85 mL/min/1.73 sq.m. Ages 70+ = 75 mL/min/1.73 sq.m. Chronic Kidney Disease: Less than 60 mL/min/1.73 square meters End Stage Renal Disease: Less than 15 mL/min/1.73 square meters Performed By: #### C BC, ADIFF, ANEU, BMP, GFR, TROPHS #### [address] [address] GFR Non- 57 ml/min/1.73sqm Normal [facility] ([place]) Comment on above: Result Comment: GFR Population mean for , Non- Americans Ages 20-29 = 116 mL/min/1.73 sq.m. Ages 30-39 = 107 mL/min/1.73 sq.m. Ages 40-49 = 99 mL/min/1.73 sq.m. Ages 50-59 = 93 mL/min/1.73 sq.m. Ages 60-69 = 85 mL/min/1.73 sq.m. Ages 70+ = 75 mL/min/1.73 sq.m. Chronic Kidney Disease: Less than 60 mL/min/1.73 square meters End Stage Renal Disease: Less than 15 mL/min/1.73 square meters Performed By: #### C BC, ADIFF, ANEU, BMP, GFR, TROPHS #### [place] [id number] .NEUABSon 07-16-2020 Neutrophils (Bld) [#/Vol] 5.20 10 3/mcL Normal 2.25-8.10 [facility] ([place]) Comment on above: Performed By: #### C BC, ADIFF, ANEU, BMP, GFR, TROPHS #### [place] [id number] BMPon 07-16-2020 Calcium [Mass/Vol] 9.0 mg/dL Normal 8.4-10.1 Replaced by [facility] ([place]) Comment on above: Result Comment: No te - New Reference Range in effect 19 Performed By: #### C BC, ADIFF, ANEU, BMP, GFR, TROPHS #### [address] [address] Chloride [Moles/Vol] 101 mmol/L Normal 98-110 [facility] ([place]) Comment on above: Performed By: #### C BC, ADIFF, ANEU, BMP, GFR, TROPHS #### [address] [address] CO2 [Moles/Vol] 24 mmol/L Normal 22-32 [facility] ([place]) Comment on above: Performed By: #### C BC, ADIFF, ANEU, BMP, GFR, TROPHS #### [address] [address] Creatinine [Mass/Vol] 1.24 mg/dL Normal 0.60-1.40 [facility] ([place]) Comment on above: Performed By: #### C BC, ADIFF, ANEU, BMP, GFR, TROPHS #### [address] [address] Electrolyte Balance 9.0 mEq/L Normal 4.0-15.0 [facility] ([place]) Comment on above: Performed By: #### C BC, ADIFF, ANEU, BMP, GFR, TROPHS #### [address] [address] Glucose [Mass/Vol] 253 mg/dL High 82-115 Replaced by [facility] ([place]) Comment on above: Performed By: #### C BC, ADIFF, ANEU, BMP, GFR, TROPHS #### [address] [address] Potassium [Moles/Vol] 4.1 mmol/L Normal 3.5-5.0 [facility] ([place]) Comment on above: Performed By: #### C BC, ADIFF, ANEU, BMP, GFR, TROPHS #### [address] [address] Sodium [Moles/Vol] 134 mmol/L Low 136-145 Replaced by [facility] ([place]) Comment on above: Performed By: #### C BC, ADIFF, ANEU, BMP, GFR, TROPHS #### [address] [address] Urea nitrogen [Mass/Vol] 26.0 mg/dL High 8.0-22.0 [facility] ([place]) Comment on above: Performed By: #### C BC, ADIFF, ANEU, BMP, GFR, TROPHS #### [address] [address] Urea nitrogen/Creatinine [Mass ratio] 21.0 ratio Normal 10.0-22.0 [facility] ([place]) Comment on above: Performed By: #### C BC, ADIFF, ANEU, BMP, GFR, TROPHS #### [place] [id number] CBCon 07-16-2020 Erythrocyte distribution width (RBC) [Ratio] 14.7 % Normal 11.5-15.5 [facility] ([place]) Comment on above: Performed By: #### C BC, ADIFF, ANEU, BMP, GFR, TROPHS #### [place] [address] Hematocrit (Bld) [Volume fraction] 44.5 % Normal 40.0-52.0 [facility] ([place]) Comment on above: Performed By: #### C BC, ADIFF, ANEU, BMP, GFR, TROPHS #### [place] [address] Hemoglobin (Bld) [Mass/Vol] 15.2 G/dL Normal 13.0-17.5 [facility] ([place]) Comment on above: Performed By: #### C BC, ADIFF, ANEU, BMP, GFR, TROPHS #### [place] [address] MCH (RBC) [Entitic mass] 30.4 pg Normal 27.0-33.0 [facility] ([place]) Comment on above: Performed By: #### C BC, ADIFF, ANEU, BMP, GFR, TROPHS #### [place] [id number] MCHC (RBC) [Mass/Vol] 34.1 G/dL Normal 32.0-36.0 [facility] ([place]) Comment on above: Performed By: #### C BC, ADIFF, ANEU, BMP, GFR, TROPHS #### [place] [address] MCV (RBC) [Entitic vol] 89.3 fL Normal 81.0-100.0 [facility] ([place]) Comment on above: Performed By: #### C BC, ADIFF, ANEU, BMP, GFR, TROPHS #### [facility] [address] [place], [place] [address] Platelet mean volume (Bld) [Entitic vol] 7.6 fL Normal 6.4-10.5 [facility] ([place]) Comment on above: Performed By: #### C BC, ADIFF, ANEU, BMP, GFR, TROPHS #### [facility] [address] [place] [address] Platelets (Bld) [#/Vol] 132 10 3/mcL Low 150-450 [facility] ([place]) Comment on above: Performed By: #### C BC, ADIFF, ANEU, BMP, GFR, TROPHS #### [place] [id number] [place] [address] RBC (Bld) [#/Vol] 4.99 10 6/mcL Normal 4.50-6.00 [facility] ([place]) Comment on above: Performed By: #### C BC, ADIFF, ANEU, BMP, GFR, TROPHS #### [place] [address] [place] [address] WBC (Bld) [#/Vol] 7.70 10 3/mcL Normal 4.50-10.80 [facility] ([place]) Comment on above: Performed By: #### C BC, ADIFF, ANEU, BMP, GFR, TROPHS #### [address] [address] [address] HEAD OR BRAIN W/O CONTRAS Ton 07-16-2020 CT HEAD OR BRAIN W/O CONTRAST ORIGINAL CT HEAD OR BRAIN W/O CONTRAST CLINICAL STATEMENT: confusion TECHNIQUE: Axial CT images from skull base to vertex without IV contrast. This exam was performed according to our departmental dose optimization program, and includes the following measures where applicable: automated exposure control, adjustment of the mAs and/or kVp according to patient size and/or exam, and an iterative reconstruction algorithm. COMPARISON: None. FINDINGS: There is no acute intracranial hemorrhage, mass, mass effect or abnormal extra-axial fluid collection. No evidence of an acute territorial infarct is demonstrated. The ventricles, sulci and cisterns are appropriate in size. Atherosclerotic calcifications are present in the cavernous carotid arteries. The skull base and calvarium are intact. The included paranasal sinuses and mastoid air cells are clear. IMPRESSION: No acute intracranial abnormality. I have personally reviewed the images of this examination and agree with the resident's findings and interpretation. Interpreted By: Ca Johnson MD Preliminary Report By: Emmett Saxena MD Electronically Signed By: Ca Johnson MD Dictated Date: 07/16/2020 9:10:53 PM Prelim Date: 07/16/2020 9:12:21 PM Sign Date: 07/16/2020 9:32:33 PM Ordering Provider:Gayla Greenberg [facility] ([place]) PROon 07-16-2020 INR Coag (PPP) [Relative time] 1.6 {INR} Normal [facility] ([place]) Comment on above: Result Comment: The [place] [employer] (CHEST, 1992, 102:312S-25S) recommended therapeutic range for oral anticoagulant therapy is: LOW RISK: Prophylaxis of venous thrombosis INR: 2.0-3.0 Treatment of pulmonary embolism 2.0-3.0 Prevention of systemic embolism 2.0-3.0 HIGH RISK: Mechanical prosthetic valves 2.5-3.5 Performed By: #### P RO #### [place] [address] PT Coag (PPP) [Time] 19.0 s High 9.0-14.8 [facility] ([place]) Comment on above: Result Comment: Effe ctive 11/16/07, Protime results may be affected by some antibiotics (i.e. Ciprofloxacin, Azithromycin, Bactrim) which may potentiate the action of oral anticoagulants, with further increases in Protime/INR. Performed By: #### P RO #### [place] [id number] TROPHSon 07-16-2020 Troponin I High Sensitivity 7.91 ng/L Normal 0.00-54.00 [facility] ([place]) Comment on above: Performed By: #### C BC, ADIFF, ANEU, BMP, GFR, TROPHS #### [address] [address] UAon 07-16-2020 Color (U) Yellow Normal [facility] ([place]) Comment on above: Performed By: #### U A #### [place] [id number] Glucose (U) [Mass/Vol] mg/dL Abnormal Negative [facility] ([place]) Comment on above: Performed By: #### U A #### [place] [address] Ketones Ql (U) Negative Normal Neg-Trace [facility] ([place]) Comment on above: Performed By: #### U A #### [place] [address] UA Appear Clear Normal [facility] ([place]) Comment on above: Performed By: #### U A #### [address] [address] UA Blood Negative Normal Neg-Trace [facility] ([place]) Comment on above: Performed By: #### U A #### [place] [address] UA Leuk Est Negative Normal Negative [facility] ([place]) Comment on above: Performed By: #### U A #### [place] [address] UA Nitrite Negative Normal Negative [facility] ([place]) Comment on above: Performed By: #### U A #### [place] [address] UA pH 5.5 Normal 5.0 - 8.0 [facility] ([place]) Comment on above: Performed By: #### U A #### [place] [address] UA Protein Negative Normal Negative [facility] ([place]) Comment on above: Performed By: #### U A #### [place] [address] UA Spec Grav 1.010 Abnormal [facility] ([place]) Comment on above: Performed By: #### U A #### [place] [address] UA Specimen Type Clean Catch Normal [facility] ([place]) Comment on above: Performed By: #### U A #### [place] [address] UA Urobilinogen 1.0 E.U./dL Normal [facility] ([place]) Comment on above: Performed By: #### U A #### [facility] [address] [place] [address] Urobilinogen Qn (U) Negative Normal Neg-Trace [facility] ([place]) Comment on above: Performed By: #### U A #### [facility] [address] [place] [address] XR CHEST 1 VIEWon 07-16-2020 XR CHEST 1 VIEW ORIGINAL XR CHEST 1 VIEW CLINICAL STATEMENT: confusion COMPARISON: None FINDINGS: The cardiomediastinal contours are not enlarged. There is no focal consolidation, vascular congestion, pleural effusion or pneumothorax. Partial visualization of a LEFT acetabular prosthesis. IMPRESSION: No acute radiographic abnormality. I have personally reviewed the images of this examination and agree with the resident's findings and interpretation. Interpreted By: Ca Johnson MD Preliminary Report By: Emmett Saxena MD Electronically Signed By: Ca Johnson MD Dictated Date: 07/16/2020 8:00:19 PM Prelim Date: 07/16/2020 8:01:07 PM Sign Date: 07/16/2020 8:13:33 PM Ordering Provider:Gayla Greenberg [facility] ([place]) CR Knee 1 or 2 Views Lefton 10-07-2018 CR Knee 1 or 2 Views Left Patient Name: CHARLI PORRAS Diagnostic Radiology Exam Date/Time 10/07/2018 10:08:00 EDT Exam CR Knee 1 or 2 Views Left Ordering Physician FERNY GARCIA NICHOLAS A Accession Number [id number] CPT4 Codes 38364 () Reason For Exam PAIN Report BILATERAL KNEES LEFT KNEE SERIES CLINICAL INDICATION: Left knee arthroplasty follow-up, pain A standing AP view of the bilateral knees was performed. [facility] and lateral plain film views of the left knee were also obtained. COMPARISON: 09/02/2018 FINDINGS: The standing AP view of the bilateral knees again demonstrates bilateral total knee arthroplasties. There is long stem revision of the femoral and tibial components of the left knee arthroplasty, similar to the prior study. No fracture, dislocation, or loosening of the patient's left knee arthroplasty is identified. No joint effusion is seen on the lateral view of the left knee. Soft tissues are unremarkable. IMPRESSION: Normal postoperative appearance of the patient's left total knee arthroplasty revision. Report Dictated on Final Dictating Physician: MD GATES JONATHAN R Signed Date and Time: 10/07/2018 4:27 pm Signed by: MD GATES JONATHAN R Transcribed Date and Time: 10/07/2018 4:28 Normal [facility] CR Knee Standing Bilateralon 10-07-2018 CR Knee Standing Bilateral Patient Name: CHARLI PORRAS Diagnostic Radiology Exam Date/Time 10/07/2018 10:08:00 EDT Exam CR Knee Standing AP Bilateral Ordering Physician FERNY GARCIA NICHOLAS A Accession Number [id number] CPT4 Codes 29427 () Reason For Exam PAIN Report BILATERAL KNEES LEFT KNEE SERIES CLINICAL INDICATION: Left knee arthroplasty follow-up, pain A standing AP view of the bilateral knees was performed. [place] and lateral plain film views of the left knee were also obtained. COMPARISON: 09/02/2018 FINDINGS: The standing AP view of the bilateral knees again demonstrates bilateral total knee arthroplasties. There is long stem revision of the femoral and tibial components of the left knee arthroplasty, similar to the prior study. No fracture, dislocation, or loosening of the patient's left knee arthroplasty is identified. No joint effusion is seen on the lateral view of the left knee. Soft tissues are unremarkable. IMPRESSION: Normal postoperative appearance of the patient's left total knee arthroplasty revision. Report Dictated on Final Dictating Physician: MD GATES JONATHAN R Signed Date and Time: 10/07/2018 4:27 pm Signed by: MD GATES JONATHAN R Transcribed Date and Time: 10/07/2018 4:28 Normal [facility] CR Knee 1 or 2 Views Lefton 09-02-2018 CR Knee 1 or 2 Views Left Patient Name: CHARLI PORRAS Diagnostic Radiology Exam Date/Time 09/02/2018 09:44:56 EDT Exam CR Knee 1 or 2 Views Left Ordering Physician MD LESLIE, SOHAN MEDINA Accession Number [id number] CPT4 Codes 26518 () Reason For Exam pain Report CLINICAL INFORMATION: Left knee surgery. Arthroplasty revision. Weight bearing AP views of both knees and crossfire lateral and sunrise views of the left knee are provided. The examination is compared to a previous study dated 08/16/2018. FINDINGS: The patient is status post left knee arthroplasty revision. Longstem femoral and tibial components are in place. There is no evidence of shiv- implant fracture, dislocation, or loosening. An older right knee arthroplasties in place. There are no acute findings. IMPRESSION: 1. Satisfactory images status post left knee arthroplasty revision. Report Dictated on Workstation: [email or web address] Final Dictating Physician: MD ALFREDO JEFFREY Signed Date and Time: 09/02/2018 1:21 pm Signed by: MD ALFREDO JEFFREY Transcribed Date and Time: 09/02/2018 1:22 Normal [facility] CR Knee Standing Bilateralon 09-02-2018 CR Knee Standing Bilateral Patient Name: CHARLI PORRAS Diagnostic Radiology Exam Date/Time 09/02/2018 09:44:56 EDT Exam CR Knee Standing AP Bilateral Ordering Physician MD LESLIE, SOHAN MEDINA Accession Number [id number] CPT4 Codes 81416 () Reason For Exam pain Report CLINICAL INFORMATION: Left knee surgery. Arthroplasty revision. Weight bearing AP views of both knees and crossfire lateral and sunrise views of the left knee are provided. The examination is compared to a previous study dated 08/16/2018. FINDINGS: The patient is status post left knee arthroplasty revision. Longstem femoral and tibial components are in place. There is no evidence of shiv- implant fracture, dislocation, or loosening. An older right knee arthroplasties in place. There are no acute findings. IMPRESSION: 1. Satisfactory images status post left knee arthroplasty revision. Report Dictated on Workstation: [email or web address] Final Dictating Physician: MD ALFREDO JEFFREY Signed Date and Time: 09/02/2018 1:21 pm Signed by: MD ALFREDO JEFFREY Transcribed Date and Time: 09/02/2018 1:22 Normal [facility] CULTURE ANAEROBEon 9 CULTURE ANAEROBE CULTURE ANAEROBE --> Status: F No growth of anaerobes at 5 days. [facility] Comment on above: Performed By: #### T SGL #### [facility] [address] [place] [address] Order Comment: Speci men collected in O.R. CULTURE ANAEROBE CULTURE ANAEROBE --> Status: F No growth of anaerobes at 5 days. [facility] Comment on above: Performed By: #### T SGL #### [facility] [address] [place] [address] Basic Metabolic Panelon 08-02 Calcium [Mass/Vol] 8.8 mg/dL Normal 8.4-10.4 [facility] Comment on above: Performed By: #### H EMOG, BMP3 ####[facility] [address] [place] [address] Glucose [Mass/Vol] 211 mg/dL High 70-100 [facility] Comment on above: Performed By: #### H EMOG, BMP3 ####[facility] [address] [place] [address] Urea nitrogen [Mass/Vol] 32 mg/dL High 7-20 [facility] Comment on above: Performed By: #### H EMOG, BMP3 ####[facility] [address] [place] [address] Anion gap [Moles/Vol] 5 Normal [facility] Comment on above: Performed By: #### H EMOG, BMP3 ####[facility] [address] [place] [address] CO2 [Moles/Vol] 33 mmol/L High 22-30 [facility] Comment on above: Performed By: #### H EMOG, BMP3 ####[facility] [address] [place] [address] Creatinine [Mass/Vol] 1.40 mg/dL High 0.52-1.25 [facility] Comment on above: Performed By: #### H EMOG, BMP3 ####[facility] [address] [place] [address] GFR/1.73 sq M predicted among blacks MDRD (S/P/Bld) [Vol rate/Area] mL/min/{1.73_m2} Normal >60 [facility] Comment on above: Performed By: #### H SULMA BMP3 ####[facility] [place] [address] GFR/1.73 sq M predicted among non-blacks MDRD (S/P/Bld) [Vol rate/Area] 50.2 mL/min/{1.73_m2} Normal >60 [facility] Comment on above: Result Comment: Sour ce- MDRD equation with creatinine calibration to IDMS(NKDEP) eGFR not recommended for drug dose adjustment Performed By: #### H SULMA BMP3 ####[place] [address] [place] [address] Potassium [Moles/Vol] 3.9 mmol/L Normal 3.5-5.1 [facility] Comment on above: Performed By: #### Joceline OZUNA BMP3 ####[facility] [place] [address] [place] [address] Chloride [Moles/Vol] 96 mmol/L Low 98-107 [facility] Comment on above: Performed By: #### Joceline OZUNA BMP3 ####[facility] [place] [address] [place] [address] Sodium [Moles/Vol] 134 mmol/L Low 135-145 [facility] Comment on above: Performed By: #### H SULMA BMP3 ####[facility] [place] [address] [place] [address] Glucose,Bedsideon 08-19-2018 Glucose [Mass/Vol] 331 mg/dL High 70-100 [facility] Comment on above: Result Comment: Test performed by glucose meter. Results may be 10%-15% lower than serum/plasma values. (CLIA ID [id number]) Performed By: #### B GLU ####[place] [address] [place] [address] Glucose [Mass/Vol] 255 mg/dL High 70-100 [facility] Comment on above: Result Comment: Test performed by glucose meter. Results may be 10%-15% lower than serum/plasma values. (CLIA ID [id number]) Performed By: #### B GLU ####[place] [address] [place] [address] Hemogramon 08-19-2018 Erythrocyte distribution width (RBC) [Ratio] 14.5 % Normal 11.5-14.5 [facility] Comment on above: Performed By: #### H SULMA BMP3 ####[place] [address] [place] [address] Hematocrit (Bld) [Volume fraction] 32.2 % Low 40.0-52.0 [facility] Comment on above: Performed By: #### Joceline OZUNA BMP3 ####[address] [place] [address] Hemoglobin (Bld) [Mass/Vol] 11.1 g/dL Low 13.0-18.0 [facility] Comment on above: Performed By: #### Joceline OZUNA BMP3 ####[place] [address] [place] [address] MCH (RBC) [Entitic mass] 30.7 pg Normal 26.0-34.0 [facility] Comment on above: Performed By: #### Joceline OZUNA BMP3 ####[place] [address] [place] [address] MCHC (RBC) [Mass/Vol] 34.5 % Normal 32.0-36.0 [facility] Comment on above: Performed By: #### Joceline OZUNA BMP3 ####[place] [address] [place] [address] MCV (RBC) [Entitic vol] 89.0 fL Normal 80.0-98.0 [facility] Comment on above: Performed By: #### Joceline OZUNA BMP3 ####[place] [address] [place] [address] Platelet mean volume (Bld) [Entitic vol] 7.1 fL Low 7.4-10.4 [facility] Comment on above: Performed By: #### H SULMA BMP3 ####[facility] [place] [address] Platelets (Bld) [#/Vol] 130 10*3/uL Low 140-440 [facility] Comment on above: Performed By: #### H SULMA BMP3 ####[facility] [place] [address] RBC (Bld) [#/Vol] 3.62 10*6/uL Low 4.40-5.90 [facility] Comment on above: Performed By: #### H SULMA BMP3 ####[facility] [place] [address] WBC (Bld) [#/Vol] 6.6 10*3/uL Normal 3.6-10.7 [facility] Comment on above: Performed By: #### H JAUN OZUNA3 ####[facility] [place] [address] Basic Metabolic Panelon - Calcium [Mass/Vol] 8.8 mg/dL Normal 8.4-10.4 [facility] Comment on above: Performed By: #### T SGL #### [facility] [address] [place] [address] Glucose [Mass/Vol] 229 mg/dL High 70-100 [facility] Comment on above: Performed By: #### T SGL #### [facility] [address] [place] [address] Anion gap [Moles/Vol] 6 Normal [facility] Comment on above: Performed By: #### T SGL #### [facility] [address] [place] [address] CO2 [Moles/Vol] 32 mmol/L High 22-30 [facility] Comment on above: Performed By: #### T SGL #### [facility] [address] [place] [address] Creatinine [Mass/Vol] 1.48 mg/dL High 0.52-1.25 [facility] Comment on above: Performed By: #### T SGL #### [facility] [address] [place] [address] GFR/1.73 sq M predicted among blacks MDRD (S/P/Bld) [Vol rate/Area] 57.1 mL/min/{1.73_m2} Normal >60 [facility] Comment on above: Performed By: #### T SGL #### [facility] [address] [place] [address] GFR/1.73 sq M predicted among non-blacks MDRD (S/P/Bld) [Vol rate/Area] 47.1 mL/min/{1.73_m2} Normal >60 [facility] Comment on above: Result Comment: Sour ce- MDRD equation with creatinine calibration to IDMS(NKDEP) eGFR not recommended for drug dose adjustment Performed By: #### T SGL #### [facility] [address] [place] [address] Urea nitrogen [Mass/Vol] 39 mg/dL High 7-20 [facility] Comment on above: Performed By: #### T SGL #### [facility] [address] [place] [address] Chloride [Moles/Vol] 99 mmol/L Normal 98-107 [facility] Comment on above: Performed By: #### T SGL #### [facility] [address] [place] [address] Potassium [Moles/Vol] 4.1 mmol/L Normal 3.5-5.1 [facility] Comment on above: Performed By: #### T SGL #### [facility] [address] [place] [address] Sodium [Moles/Vol] 136 mmol/L Normal 135-145 [facility] Comment on above: Performed By: #### T SGL #### [facility] [address] [place] [address] Glucose,Bedsideon 08-18-2018 Glucose [Mass/Vol] 214 mg/dL High 70-100 [facility] Comment on above: Result Comment: Test performed by glucose meter. Results may be 10%-15% lower than serum/plasma values. (CLIA ID [id number]) Performed By: #### B GLU ####[facility] [place] [address] Glucose [Mass/Vol] 286 mg/dL High 70-100 [facility] Comment on above: Result Comment: Test performed by glucose meter. Results may be 10%-15% lower than serum/plasma values. (CLIA ID [id number]) Performed By: #### B GLU ####[facility] [place] [address] Glucose [Mass/Vol] 285 mg/dL High 70-100 [facility] Comment on above: Result Comment: Test performed by glucose meter. Results may be 10%-15% lower than serum/plasma values. (CLIA ID [id number]) Performed By: #### B GLU ####[facility] [place] [address] Glucose [Mass/Vol] 251 mg/dL High 70-100 [facility] Comment on above: Result Comment: Test performed by glucose meter. Results may be 10%-15% lower than serum/plasma values. (CLIA ID [id number]) Performed By: #### T SGL #### [facility] [address] [place] [address] Hemogramon 08-18-2018 Erythrocyte distribution width (RBC) [Ratio] 14.6 % High 11.5-14.5 [facility] Comment on above: Performed By: #### T SGL #### [facility] [address] [place] [address] Hematocrit (Bld) [Volume fraction] 33.6 % Low 40.0-52.0 [facility] Comment on above: Performed By: #### T SGL #### [facility] [address] [place] [address] Hemoglobin (Bld) [Mass/Vol] 11.4 g/dL Low 13.0-18.0 [facility] Comment on above: Performed By: #### T SGL #### [facility] [address] [place] [address] MCH (RBC) [Entitic mass] 30.6 pg Normal 26.0-34.0 [facility] Comment on above: Performed By: #### T SGL #### [facility] [address] [place] [address] MCHC (RBC) [Mass/Vol] 34.0 % Normal 32.0-36.0 [facility] Comment on above: Performed By: #### T SGL #### [facility] [address] [place] [address] MCV (RBC) [Entitic vol] 90.0 fL Normal 80.0-98.0 [facility] Comment on above: Performed By: #### T SGL #### [facility] [address] [place] [address] Platelet mean volume (Bld) [Entitic vol] 7.5 fL Normal 7.4-10.4 [facility] Comment on above: Performed By: #### T SGL #### [facility] [address] [place] [address] Platelets (Bld) [#/Vol] 129 10*3/uL Low 140-440 [facility] Comment on above: Performed By: #### T SGL #### [facility] [address] [place] [address] RBC (Bld) [#/Vol] 3.73 10*6/uL Low 4.40-5.90 [facility] Comment on above: Performed By: #### T SGL #### [facility] [address] [place] [address] WBC (Bld) [#/Vol] 8.4 10*3/uL Normal 3.6-10.7 [facility] Comment on above: Performed By: #### T SGL #### [facility] [address] [place] [address] Basic Metabolic Panelon 08-02 Anion gap [Moles/Vol] 7 Normal [facility] Comment on above: Performed By: #### P T #### [facility] [address] [place] [address] Calcium [Mass/Vol] 9.0 mg/dL Normal 8.4-10.4 [facility] Comment on above: Performed By: #### P T #### [facility] [address] [place] [address] CO2 [Moles/Vol] 26 mmol/L Normal 22-30 [facility] Comment on above: Performed By: #### P T #### [facility] [address] [place] [address] Creatinine [Mass/Vol] 1.64 mg/dL High 0.52-1.25 [facility] Comment on above: Performed By: #### P T #### [facility] [address] [place] [address] GFR/1.73 sq M predicted among blacks MDRD (S/P/Bld) [Vol rate/Area] 50.7 mL/min/{1.73_m2} Normal >60 [facility] Comment on above: Performed By: #### P T #### [facility] [address] [place] [address] GFR/1.73 sq M predicted among non-blacks MDRD (S/P/Bld) [Vol rate/Area] 41.8 mL/min/{1.73_m2} Normal >60 [facility] Comment on above: Result Comment: Sour ce- MDRD equation with creatinine calibration to IDMS(NKDEP) eGFR not recommended for drug dose adjustment Performed By: #### P T #### [facility] [address] [place] [address] Glucose [Mass/Vol] 329 mg/dL High 70-100 [facility] Comment on above: Performed By: #### P T #### [facility] [address] [place] [address] Urea nitrogen [Mass/Vol] 32 mg/dL High 7-20 [facility] Comment on above: Performed By: #### P T #### [facility] [address] [place] [address] Chloride [Moles/Vol] 99 mmol/L Normal 98-107 [facility] Comment on above: Performed By: #### P T #### [facility] [address] [place] [address] Potassium [Moles/Vol] 5.2 mmol/L High 3.5-5.1 [facility] Comment on above: Performed By: #### P T #### [facility] [address] [place] [address] Sodium [Moles/Vol] 133 mmol/L Low 135-145 [facility] Comment on above: Performed By: #### P T #### [facility] [address] [place] [address] CULTURE AND STAIN - FLUIDon 08-17-2018 CULTURE AND STAIN - FLUID CULTURE & STAIN - FLUID --> Status: F No growth at 5 days. STAIN GRAM --> Status: F Few polymorphonuclear cells/lpf. No organisms seen. No organisms seen. Normal [facility] Comment on above: Performed By: #### T SGL #### [facility] [address] [place] [address] CULTURE AND STAIN - TISSUEon 08-17-2018 CULTURE AND STAIN - TISSUE CULTURE & STAIN - TISSUE --> Status: F No growth at 3 days. STAIN GRAM --> Status: F Rare polymorphonuclear cells/lpf. No organisms seen. No organisms seen. Normal [facility] Comment on above: Order Comment: Speci men collected in O.R. Performed By: #### T SGL #### [facility] [address] [place] [address] CULTURE AND STAIN - TISSUE CULTURE & STAIN - TISSUE --> Status: F No growth at 3 days. STAIN GRAM --> Status: F Rare polymorphonuclear cells/lpf. No organisms seen. No organisms seen. Normal [facility] Comment on above: Performed By: #### P T #### [facility] [address] [place] [address] Glucose,Bedsideon 08-17-2018 Glucose [Mass/Vol] 258 mg/dL High 70-100 [facility] Comment on above: Result Comment: Test performed by glucose meter. Results may be 10%-15% lower than serum/plasma values. (CLIA ID [id number]) Performed By: #### T SGL #### [facility] [address] [place] [address] Glucose [Mass/Vol] 257 mg/dL High 70-100 [facility] Comment on above: Result Comment: Test performed by glucose meter. Results may be 10%-15% lower than serum/plasma values. (CLIA ID [id number]) Performed By: #### T SGL #### [facility] [address] [place] [address] Glucose [Mass/Vol] 324 mg/dL High 70-100 [facility] Comment on above: Result Comment: Test performed by glucose meter. Results may be 10%-15% lower than serum/plasma values. (CLIA ID [id number]) Performed By: #### P T #### [facility] [address] [place] [address] Glucose [Mass/Vol] 319 mg/dL High 70-100 [facility] Comment on above: Result Comment: Test performed by glucose meter. Results may be 10%-15% lower than serum/plasma values. (CLIA ID [id number]) Performed By: #### P T #### [facility] [address] [place] [address] Hemoglobin A1Con 08-17-2018 HbA1c (Bld) [Mass fraction] 177 mg/dL Normal [facility] Comment on above: Performed By: #### P T #### [facility] [address] [place] [address] HbA1c (Bld) [Mass fraction] 7.8 % High 4.0-5.7 [facility] Comment on above: Result Comment: --Hg bA1C levels may not be accurate in patients who have renal disease, received recent blood transfusions, are anemic, or who have dyshemoglobinemia. Performed By: #### P T #### [facility] [address] [place] [address] Hemoglobin AND Hematocriton 08-17-2018 Hematocrit (Bld) [Volume fraction] 35.9 % Low 40.0-52.0 [facility] Comment on above: Performed By: #### P T #### [facility] [address] [place] [address] Hemoglobin (Bld) [Mass/Vol] 12.2 g/dL Low 13.0-18.0 [facility] Comment on above: Performed By: #### P T #### [facility] [address] [place] [address] Prothrombin Timeon 9 INR Coag (PPP) [Relative time] 1.1 Normal 0.9-1.1 [facility] Comment on above: Result Comment: Campos mmended Anticoagulant Therapy: SEE BELOW ----- INR of 2.0 - 3.0 : - Prophylaxis of Venous Thrombosis (high-risk surgery) - Treatment of Venous Thrombosis - Treatment of Pulmonary Embolism (Includes tissue heart valves, Acute Myocardial Infarction to prevent systemic embolism, Valvular Heart Disease, and Atrial Fibrillation) ----- INR of 2.5 - 3.5 : - Mechanical Prosthetic Valves (high risk) - If oral anticoagulant therapy is used to prevent Myocardial Infarction Performed By: #### P T #### [facility] [address] [place] [address] PT Coag (PPP) [Time] 11.2 s Normal 9.0-12.0 [facility] Comment on above: Result Comment: . Performed By: #### P T #### [facility] [address] [place] [address] CR Femur 2+ Views Lefton CR Femur 2+ Views Left Patient Name: CHARLI PORRAS Diagnostic Radiology Exam Date/Time 08/16/2018 16:30:00 EDT Exam CR Femur 2+ Views Left n Ordering Physician MD LESLIE, SOHAN MEDINA Accession Number [id number] CPT4 Codes 11538 () Reason For Exam to see top of pin Report EXAMINATION: Left femur and knee CLINICAL INDICATION: Pain. Postoperative. COMPARISON: 2018 TECHNIQUE: FINDINGS: 2 views of the left knee and 2 views of the left femur are provided. The patient is status post total left knee arthroplasty revision with a longstem constrained prosthetic. No evidence of immediate periprosthetic complication or fracture. Resurfacing of the patella. Postsurgical changes of the soft tissues including surgical damaris. IMPRESSION: Status post post total left knee arthroplasty revision with a longstem, constrained prosthetic. Report Dictated on Final Dictating Physician: MD GORDON JASON Signed Date and Time: 08/16/2018 4:58 pm Signed by: MD GORDON JASON Transcribed Date and Time: 08/16/2018 4:59 Normal [facility] CR Knee 1 or 2 Views Lefton 08-16-2018 CR Knee 1 or 2 Views Left Patient Name: CHARLI PORRAS Diagnostic Radiology Exam Date/Time 08/16/2018 14:53:00 EDT Exam CR Knee 1 or 2 Views Left Ordering Physician FERNY GARCIA NICHOLAS A Accession Number [id number] CPT4 Codes 66384 () Reason For Exam s/p TKA Report EXAMINATION: Left femur and knee CLINICAL INDICATION: Pain. Postoperative. COMPARISON: 2018 TECHNIQUE: FINDINGS: 2 views of the left knee and 2 views of the left femur are provided. The patient is status post total left knee arthroplasty revision with a longstem constrained prosthetic. No evidence of immediate periprosthetic complication or fracture. Resurfacing of the patella. Postsurgical changes of the soft tissues including surgical damaris. IMPRESSION: Status post post total left knee arthroplasty revision with a longstem, constrained prosthetic. Report Dictated on Final Dictating Physician: MD GORDON JASON Signed Date and Time: 08/16/2018 4:58 pm Signed by: MD GORDON JASON Transcribed Date and Time: 08/16/2018 4:59 Normal [facility] Glucose,Bedsideon 08-16-2018 Glucose [Mass/Vol] 292 mg/dL High 70-100 [facility] Comment on above: Result Comment: Test performed by glucose meter. Results may be 10%-15% lower than serum/plasma values. (CLIA ID [id number]) Performed By: #### P T #### [facility] [address] [place] [address] Glucose [Mass/Vol] 246 mg/dL High 70-100 [facility] Comment on above: Result Comment: Test performed by glucose meter. Results may be 10%-15% lower than serum/plasma values. (CLIA ID [id number]) Performed By: #### P T #### [facility] [address] [place] [address] Glucose [Mass/Vol] 261 mg/dL High 70-100 [facility] Comment on above: Result Comment: Test performed by glucose meter. Results may be 10%-15% lower than serum/plasma values. (CLIA ID [id number]) Performed By: #### P T #### [facility] [address] [place] [address] Glucose [Mass/Vol] 323 mg/dL High 70-[address] [place] [address] Comment on above: Result Comment: Test performed by glucose meter. Results may be 10%-15% lower than serum/plasma values. (CLIA ID [id number]) Performed By: #### B GLU #### [facility] [address] [place] [address] Glucose [Mass/Vol] 333 mg/dL High 70-100 [facility] Comment on above: Result Comment: Test performed by glucose meter. Results may be 10%-15% lower than serum/plasma values. (CLIA ID [id number]) Performed By: #### B GLU #### [facility] [address] [place] [address] Glucose [Mass/Vol] 301 mg/dL High 70-[address] [place] [address] Comment on above: Result Comment: Test performed by glucose meter. Results may be 10%-15% lower than serum/plasma values. (CLIA ID [id number]) Performed By: #### B GLU #### [facility] [address] [place] [address] Glucose [Mass/Vol] 317 mg/dL High 70-[address] [place] [address] Comment on above: Result Comment: Test performed by glucose meter. Results may be 10%-15% lower than serum/plasma values. (CLIA ID [id number]) Performed By: #### B GLU #### [facility] [address] [place] [address] Glucose [Mass/Vol] 198 mg/dL High 70-[address] [place] [address] Comment on above: Result Comment: Test performed by glucose meter. Results may be 10%-15% lower than serum/plasma values. (CLIA ID [id number]) Performed By: #### B GLU #### [facility] [address] [place] [address] Op Noteon 08-16-2018 Op Note [facility] GENERAL SURGERY [address] [facility] [address] Dept: [phone] Loc: [phone] Operative Report Patient Name: Charli Porras Date of : 1950 Date of Surgery: 08/16/18 Providers Performing: Surgeon: Sohan Gilliland MD Trench Pipe Layer (s): cookie [id number], qamar guo Preoperative Diagnosis: left Failed total knee Postoperative Diagnosis: Same Operative Procedure: Revision left Total Knee Arthroplasty both components Anesthesia: Spinal Estimated Blood Loss: 50 Fluids: Per anesthesia Specimens: Deep tissue x 3 to microbiology Deep fluid (joint) x 1 to microbiology Complications: None, stable to PACU. Implants Utilized: Tibia: DePuy attune revision revision total knee arthroplasty system with size 7 rotating platform MBT revision system, rotating platform size 8mm tibial insert, size 53mm MBT revision metaphyseal sleeve porous-coated, and size 20mm x 16mm fluted universal stem for the tibia. Femur: Attune revision size 7 femoral component, femoral sleeve porous-coated size 45mm, size 18mm x 110mm universal fluted stem, 12 and 8 distal augments medial and lateral, and 8mm posterior augments medial and lateral. Indications: This is a 68-year-old male status post a who was seen in the office and scheduled for left knee revision arthroplasty surgery today. A history of total knee as well as revision performed in [place] by Dr. Graham. Is diagnosed with a grossly loose femur. Patient was the point where he was unable to ambulate due to pain. Upon discussion of the risks and benefits of surgery, the patient decided to proceed with revision knee arthroplasty surgery. Risks including but not limited to periprosthetic fracture, periprosthetic infection, blood clot (DVT and PE), aseptic loosening, wear, instability, extensor mechanism injury, stiffness, leg length discrepancy, malalignment, malrotation, myocardial infarction, arrhythmia, cerebrovascular accident, postoperative confusion/delirium, as well as were explained and discussed at length. The patient demonstrated an understanding of the risks and potential benefits and decided to proceed with surgery. Operative Notes: Prior to initiation of the operative procedure a surgical time-out was taken and the patient's name, medical record, number, [id number], and operative side was verified with the surgical consent form. Additionally it was verified that the appropriate shiv-operative antibiotic administration was completed, as well as that radiographs were available and the correct operative instrumentation and implants were available. After routine preparation and draping of the patient in the total joint operating room, the esmark bandage was utilized to exsanguinate the extremity and the tourniquet inflated. A midline skin incision was made over the knee joint utilizing the previous surgical incision. The medial border of the patella, tibial tubercle, and VMO were clearly identified. A medial parapatellar approach was made to the left knee joint. There was no purulence or inflammation noted upon exposure of the knee joint. A complete synovectomy including the medial and lateral gutters was done. A medial release was performed using blunt dissection with a almonte elevator and electrocautery. Attention was turned to the femur. Keri retractors were placed to expose the femur. The implant-cement and the cement-bone interfaces on the femur were exposed. It was noted that the femoral component was grossly loose and removed by hand. The femoral component was removed and the remaining cement was then removed from the cut surface of the femur utilizing a high-speed rl and a rongeur. Cement was removed from the intramedullary canal of the tibia utilizing reverse curettes and pituitary instruments. The knee was flexed to 90 degrees. A keri retractor was then placed in the posterior aspect of the knee and the proximal tibial surface exposed. The implant-cement and the cement-bone interfaces were exposed. It was noted that the tibial component was well fixed. The implant-cement interface was disrupted utilizing osteotomes. The tibial component was removed and the remaining cement was then removed from the cut surface of the tibia utilizing a saw, high-speed rl and a rongeur. Cement was removed from the intramedullary canal of the tibia utilizing reverse curettes and pituitary instruments. A laminar timber rider was then placed and a posterior synovectomy was completed. At this point the knee was irrigated with pulse lavage with 9L of antibiotic-impregnated irrigation fluid. At this point the bony defects on the femur and tibia were fully assessed. It was felt that, secondary to bony defects on the femoral and tibial side, a revision system utilizing metaphyseal sleeves may be utilized. The patella was also assessed and it was felt that the patella was too thin to accept a new patellar component. The femoral and tibial canals were hand reamed and shaped to accept a size 18mm x 110mm stem on the femur and 20mm x 60mm stem on the tibia to engage the diaphysis of the bone. At this point the femur was exposed with blunt human retractors. The femoral broaches were then utilized in the appropriate orientation in a sequential manner. The joint line of the femur as estimated based on the medial epicondyle and a point approximately 3cm distal, as well as utilizing the remaining meniscal scar and the fibular head as landmarks. The femur was broached and noted to be stable to both axial and torsional force with a 45mm size broach. Then the tibia was exposed and broached in a sequential manner. The tibial broach was noted to be stable to both axial and torsional force with a 53mm size broach. At this point a femoral trial was placed. There was noted to be both posterior and distal defects after placement of the trial. A size #7 cemented femoral component with an 8mm medial, lateral, posterior and 8 and 12mm distal augments was utilized on the femur and a size #7 rotating platform tibial tray with a 8mm rotating platform polyethylene was utilized on the tibia. Metaphyseal sleeves were utilized on both sides. This construct was noted to be stable, with optimal range of motion, patellar tracking and varus-valgus stability. The incision was copiously irrigated prior to implantation of the final components. Trial and final reduction revealed excellent alignment, stability, range of motion and patellar tracking, as well as jewish of the joint line. The components were affixed utilizing the [employer] Simplex P antibiotic bone cement in a hybrid-fixation manner. A surgical drain was placed. The wound was closed in layers using Ethibond, vicryl suture and skin damaris. A soft compression dressing was applied and a hinged knee brace was placed with the knee locked in full extension. Postoperative plan Weightbearing as tolerated with brace locked in full extension No range of motion for 2 weeks DC drain postoperative day 2 Continue antibiotics until cultures are final Follow-up in 2 weeks with x-rays and wound check Signed by: Sohan Gilliland MD [facility] Prothrombin Timeon 9 INR Coag (PPP) [Relative time] 1.2 High 0.9-1.1 [facility] Comment on above: Result Comment: Campos mmended Anticoagulant Therapy: SEE BELOW ----- INR of 2.0 - 3.0 : - Prophylaxis of Venous Thrombosis (high-risk surgery) - Treatment of Venous Thrombosis - Treatment of Pulmonary Embolism (Includes tissue heart valves, Acute Myocardial Infarction to prevent systemic embolism, Valvular Heart Disease, and Atrial Fibrillation) ----- INR of 2.5 - 3.5 : - Mechanical Prosthetic Valves (high risk) - If oral anticoagulant therapy is used to prevent Myocardial Infarction Performed By: #### P T #### [facility] [address] [place] [address] PT Coag (PPP) [Time] 12.4 s High 9.0-12.0 [facility] Comment on above: Result Comment: . Performed By: #### P T #### [facility] [address] [place] [address] TS GELon 08-16-2018 TS GEL ABO Group: A Rh, Gel: NEG Antibody Screen Gel: NEG Normal [facility] Comment on above: Performed By: #### T SGL #### [facility] [address] [place] [address] CULTURE ANAEROBEon 9 CULTURE ANAEROBE CULTURE ANAEROBE --> Status: F No growth of anaerobes at 5 days. Normal [facility] Comment on above: Order Comment: Speci men Source Comment:not recvd in sterile container,centrif. in spud Performed By: #### D LAUREN WALTON, DEMETRIUS #### [facility] [address] [address] CULTURE AND STAIN - FLUIDon 05-23-2018 CULTURE AND STAIN - FLUID CULTURE & STAIN - FLUID --> Status: F No growth at 5 days. [facility] Comment on above: Order Comment: Speci men Source Comment:not recvd in sterile container,centrif. in spud Performed By: #### D LAUREN WALTON, DEMETRIUS #### [facility] [address] [address] Basic Metabolic Panelon 05-04 Calcium [Mass/Vol] 9.1 mg/dL Normal 8.4-10.4 [facility] Comment on above: Performed By: #### D LAUREN WALTON, CRSTL #### [facility] [address] [place] [address] Glucose [Mass/Vol] 165 mg/dL High 70-100 [facility] Comment on above: Performed By: #### D LAUREN WALTON, CRSTL #### [facility] [address] [place] [address] Anion gap [Moles/Vol] 7 Normal [facility] Comment on above: Performed By: #### D LAUREN WALTON, CRSTL #### [facility] [address] [place] [address] CO2 [Moles/Vol] 27 mmol/L Normal 22-30 [facility] Comment on above: Performed By: #### D LAUREN WALTON, CRSTL #### [place] [address] [place] [address] Creatinine [Mass/Vol] 1.58 mg/dL High 0.52-1.25 [facility] Comment on above: Performed By: #### D LAUREN WALTON, CRSTL #### [place] [address] [place] [address] GFR/1.73 sq M predicted among blacks MDRD (S/P/Bld) [Vol rate/Area] 53.0 mL/min/{1.73_m2} Normal >60 [facility] Comment on above: Performed By: #### D LAUREN WALTON, CRSTL #### [place] [address] [place] [address] GFR/1.73 sq M predicted among non-blacks MDRD (S/P/Bld) [Vol rate/Area] 43.7 mL/min/{1.73_m2} Normal >60 [facility] Comment on above: Result Comment: Sour ce- MDRD equation with creatinine calibration to IDMS(NKDEP) eGFR not recommended for drug dose adjustment Performed By: #### D LAUREN WALTON, CRSTL #### [place] [address] [place] [address] Urea nitrogen [Mass/Vol] 33 mg/dL High 7-20 [facility] Comment on above: Performed By: #### D IFBF, FLDCC, CRSTL #### [facility] [address] [place], [place] Chloride [Moles/Vol] 104 mmol/L Normal 98-107 [facility] Comment on above: Performed By: #### D IFBF, FLDCC, CRSTL #### [facility] [address] [place], [place] Potassium [Moles/Vol] 4.3 mmol/L Normal 3.5-5.1 [facility] Comment on above: Performed By: #### D IFBF, FLDCC, CRSTL #### [facility] [address] [place], [place] Sodium [Moles/Vol] 138 mmol/L Normal 135-145 [facility] Comment on above: Performed By: #### D IFBF, FLDCC, CRSTL #### [facility] [address] [place], [place] C-Reactive Proteinon 019 CRP [Mass/Vol] 19.4 mg/L High 0.0-6.0 [facility] Comment on above: Result Comment: . Performed By: #### P T, ESR, CRP2 #### [facility] [address] [place], [place] CR Femur 2+ Views Lefton CR Femur 2+ Views Left Patient Name: CHARLI PORRAS Diagnostic Radiology Exam Date/Time 2018 04:30:02 EST Exam CR Femur 2+ Views Left n Ordering Physician MD SRINIVASA, AVINASH Accession Number [id number] CPT4 Codes 94363 () Reason For Exam proximal femur Report LEFT FEMUR CLINICAL INDICATION: Fall. Left leg pain. TECHNIQUE: AP and lateral COMPARISON: 08/15/2015. FINDINGS: Left hip joint is preserved. There is no evidence of a fracture. Left knee arthroplasty components are intact and aligned. No shiv-implant lucency. There is osseous remodeling along the distal femur. No other bony or soft tissue abnormality is identified. IMPRESSION: 1. No acute traumatic osseous abnormality. 2. Left knee arthroplasty components are intact. No loosening. Report Dictated on Workstation: [id number] Final Dictated: 2018 4:34 am Dictating Physician: DARNELL CHAMBERS DO, I Signed Date and Time: 2018 4:36 am Signed by: DARNELL CHAMBERS DO, I Transcribed Date and Time: 2018 4:34 Normal [facility] CT Head or Brain w/o Contras ton 2018 CT Head or Brain w/o Contrast Patient Name: CHARLI PORRAS CT Exam Date/Time 2018 04:36:[address] Head or Brain w/o Contrast Ordering Physician [id number] SERGEY SANTOS Accession Number [id number] CPT4 Codes 87000 () Reason For Exam HEAD TRAUMA, CLOSED, MILD, GCS >= 13, NO RISK FACTORS, NEURO EXAM NORMAL Report CT HEAD WITHOUT CONTRAST: CLINICAL INDICATION: Fall. Closed head injury. COMPARISON: none TECHNIQUE: [address] images through the brain. Sagittal and coronal reformatted images provided. FINDINGS: Ventricles and extra-axial spaces: Mild prominence of cerebral ventricles, cisterns and sulci for age, compatible with mild cerebral atrophy. No extra-axial fluid collection. Cerebral and cerebellar parenchyma: No abnormal areas of decreased or increased parenchymal density. No mass, mass effect or acute cortical infarct. Hemorrhage: None. Brainstem: Normal. Visualized paranasal sinuses: Left maxillary sinus mucosal thickening. Mastoid air cells: Normal. Visualized orbits: Normal. Calvarium and skull base: Normal. Other: None. IMPRESSION: No acute intracranial process. Mild global cerebral atrophy. Left-sided maxillary sinus mucosal thickening Report Dictated on Workstation: [id number] Final Dictated: 2018 5:03 am Dictating Physician: DARNELL CHAMBERS DO, I Signed Date and Time: 2018 5:10 am Signed by: DARNELL CHAMBERS DO, I Transcribed Date and Time: 2018 5:03 Normal [facility] Cell Count,Body Fluidon 05-04 Nucleated Cells 21 {cells}/uL Normal [facility] Comment on above: Performed By: #### D IFBF, FLDCC, CRSTL #### [facility] [address] [place], [place] Fluid Type knee Normal [facility] Comment on above: Performed By: #### D IFBF, FLDCC, CRSTL #### [facility] [address] [place] [address] Crystals,Body Fluidon 2018 Crystals LM Nom (Urine sed) Negative Normal [facility] Comment on above: Performed By: #### D IFBF, FLDCC, CRSTL #### [facility] [address] [place] [address] Fluid Type \[id number]\ Normal [facility] Comment on above: Performed By: #### D IFBF, FLDCC, CRSTL #### [facility] [address] [place], [place] Differential,Body Fluidson 0 2018 Lymphocytes/100 WBC (Bld) 10 % Normal [facility] Comment on above: Performed By: #### D IFBF, FLDCC, CRSTL #### [facility] [address] [place] [address] Monocytes/100 WBC (Bld) 11 % Normal [facility] Comment on above: Performed By: #### D IFBF, FLDCC, CRSTL #### [facility] [address] [place] [address] Neutrophils/100 WBC (Bld) 79 % Normal [facility] Comment on above: Performed By: #### D IFBF, FLDCC, CRSTL #### [facility] [address] [place] [address] Cells Counted for Diff 100 Normal [facility] Comment on above: Performed By: #### D IFBF, FLDCC, CRSTL #### [facility] [address] [place] [address] Glucose,Bedsideon 2018 Glucose [Mass/Vol] 175 mg/dL High 70-100 [facility] Comment on above: Result Comment: Test performed by glucose meter. Results may be 10%-15% lower than serum/plasma values. (CLIA ID [id number]) Performed By: #### D LAUREN WALTON, DEMETRUIS #### [place] [address] [place], [place] Glucose [Mass/Vol] 165 mg/dL High 70-100 [facility] Comment on above: Result Comment: Test performed by glucose meter. Results may be 10%-15% lower than serum/plasma values. (CLIA ID [id number]) Performed By: #### D LAUREN WALTON, ABELTL #### [place] [address] [place], [place] Glucose [Mass/Vol] 144 mg/dL High 70-100 [facility] Comment on above: Result Comment: Test performed by glucose meter. Results may be 10%-15% lower than serum/plasma values. (CLIA ID [id number]) Performed By: #### B GLU #### [place] [address] [place], [place] Hemogramon 2018 Erythrocyte distribution width (RBC) [Ratio] 15.1 % High 11.5-14.5 [facility] Comment on above: Performed By: #### D LAUREN WALTON, DEMETRIUS #### [place] [address] [place], [place] Hematocrit (Bld) [Volume fraction] 40.8 % Normal 40.0-52.0 [facility] Comment on above: Performed By: #### D LAUREN WALTON, CRSTL #### [place] [address] [place], [place] Hemoglobin (Bld) [Mass/Vol] 13.6 g/dL Normal 13.0-18.0 [facility] Comment on above: Performed By: #### D LAUREN WALTON, CRSTL #### [place] [address] [place], [place] MCH (RBC) [Entitic mass] 29.7 pg Normal 26.0-34.0 [facility] Comment on above: Performed By: #### D ANTON FLDCC, CRSTL #### [facility] [address] [place], [place] MCHC (RBC) [Mass/Vol] 33.4 % Normal 32.0-36.0 [facility] Comment on above: Performed By: #### D IFBF FLDCC, CRSTL #### [place] [address] [place], [place] MCV (RBC) [Entitic vol] 89.0 fL Normal 80.0-98.0 [facility] Comment on above: Performed By: #### D IFBF FLDCC, CRSTL #### [place] [address] [place], [place] Platelet mean volume (Bld) [Entitic vol] 8.1 fL Normal 7.4-10.4 [facility] Comment on above: Performed By: #### D IFDEIDRA FLCAT, CRSTL #### [place] [address] [place], [place] Platelets (Bld) [#/Vol] 144 10*3/uL Normal 140-440 [facility] Comment on above: Performed By: #### D ANTON FLDCJagjit, CRSTL #### [place] [address] [place], [place] RBC (Bld) [#/Vol] 4.59 10*6/uL Normal 4.40-5.90 [facility] Comment on above: Performed By: #### D IFBF FLDCC, CRSTL #### [place] [address] [place], [place] WBC (Bld) [#/Vol] 6.4 10*3/uL Normal 3.6-10.7 [facility] Comment on above: Performed By: #### D IFBF FLDCC, CRSTL #### [place] [address] [place], [place] Prothrombin Timeon 9 INR Coag (PPP) [Relative time] 1.5 High 0.9-1.1 [facility] Comment on above: Result Comment: Campos mmended Anticoagulant Therapy: SEE BELOW ----- INR of 2.0 - 3.0 : - Prophylaxis of Venous Thrombosis (high-risk surgery) - Treatment of Venous Thrombosis - Treatment of Pulmonary Embolism (Includes tissue heart valves, Acute Myocardial Infarction to prevent systemic embolism, Valvular Heart Disease, and Atrial Fibrillation) ----- INR of 2.5 - 3.5 : - Mechanical Prosthetic Valves (high risk) - If oral anticoagulant therapy is used to prevent Myocardial Infarction Performed By: #### P T, ESR, CRP2 #### [facility] [address] [place] [address] PT Coag (PPP) [Time] 14.8 s High 9.0-12.0 [facility] Comment on above: Result Comment: . Performed By: #### P T, ESR, CRP2 #### [facility] [address] [place] [address] STAIN GRAMon 2018 STAIN GRAM STAIN GRAM --> Statu s: F Moderate polymorphonuclear cells/lpf. Moderate mononuclear cells/lpf No organisms seen. Moderate mononuclear cells/lpf No organisms seen. Normal [facility] Comment on above: Order Comment: Speci men Source Comment:not recvd in sterile container, centrif. in spud Performed By: #### C /MARGARITO, S/GRM, CXFLD #### [facility] [address] [place] [address] Sed Rateon 2018 Sed Rate 11 mm/h High 0-10 [facility] Comment on above: Performed By: #### P T, ESR, CRP2 #### [facility] [address] [place] [address] CBC WITH DIFFon 08-25-2016 ABSOLUTE BASO 0.10 K/UL Normal 0.00-0.20 [facility] ABSOLUTE EOS 0.10 K/UL Normal 0-0.33 [facility] ABSOLUTE LYMPHOCYTE 2.00 K/UL Normal 1.1-4.8 [facility] ABSOLUTE MONOCYTE 0.70 K/UL Normal 0.2-0.7 [facility] ABSOLUTE NEUTROPHIL 5.30 K/UL Normal 1.83-8.70 [facility] Basophils Auto #/vol (Bld) 1.0 % Normal 0.0-1.5 [facility] DIFF TYPE AUTO Normal [facility] Eosinophils/100 leukocytes 1.8 % Normal 0.0-3.0 [facility] Erythrocyte distribution width Auto Ratio (RBC) 14 % Normal 10.9-14.3 [facility] Erythrocytes (RBC) 4.74 M/UL Normal 4.50-5.50 [facility] Hematocrit (HCT) 42.2 % Normal 41.0-50.0 [facility] Hemoglobin mass conc (Bld) 14.3 g/dL Normal 13.5-16.5 [facility] Lymphocytes/100 leukocytes 24.3 % Normal 24-44 [facility] MCH 30.3 pg Normal 28.0-34.0 [facility] MCHC mass conc (RBC) 34.0 MG/DL Normal 33.0-37.0 [facility] MCV 89.1 fL Normal 80-100 [facility] Monocytes/100 leukocytes 8.6 % Normal 3.4-9.0 [facility] NEUTROPHIL 64.3 % Normal 40.0-74.0 [facility] Platelets 162 10*3/uL Normal 150-450 [facility] WBC (Leukocytes) 8.2 10*3/uL Normal 4.5-11.0 [facility] PROTIME COUMADINon 7 INR Coag RelTime (PPP) 4.21 HH Abnormal 2.0-3.5 [facility] RADon 08-25-2016 KNEE,LEFT (MIN 4 VIEWS) CPT 74336SH [facility] IM Normal [facility] CBC WITHOUT DIFFon 6 Erythrocyte distribution width Auto Ratio (RBC) 14.2 % Normal 10.9-14.3 [facility] Erythrocytes (RBC) 4.87 M/UL Normal 4.50-5.50 [facility] Hematocrit (HCT) 42.7 % Normal 41.0-50.0 [facility] Hemoglobin mass conc (Bld) 14.3 g/dL Normal 13.5-16.5 [facility] MCH 29.4 pg Normal 28.0-34.0 [facility] MCHC mass conc (RBC) 33.5 MG/DL Normal 33.0-37.0 [facility] MCV 87.6 fL Normal 80-100 [facility] Platelets 180 10*3/uL Normal 150-450 [facility] WBC (Leukocytes) 9.6 10*3/uL Normal 4.5-11.0 [facility] COMPREHENSIVE MEon 6 Alanine aminotransferase (ALT) 22 U/L Normal 10-63 [facility] Albumin 4.3 g/dL Normal 3.4-4.8 [facility] Albumin/Globulin Ratio 1.2 {ratio} Normal 1.1-2.2 [facility] ALK PHOS 44 U/L Normal 42-121 [facility] Anion gap 10 mmol/L Normal 3-11 [facility] Aspartate aminotransferase (AST) 26 U/L Normal 10-41 [facility] Bilirubin (direct) 0.8 mg/dL Normal 0.3-1.5 [facility] Calcium 9.6 mg/dL Normal 8.5-10.5 [facility] Chloride 105 mmol/L Normal 98-107 [facility] CO2 21 mmol/L Normal 21-31 [facility] Creatinine 1.8 mg/dL Abnormal 0.6-1.3 [facility] eGFR (non-black) 45.9 mL/min/{1.73_m2} Abnormal 60.0-128 .0 [facility] eGFR (non-black) 37.9 mL/min/{1.73_m2} Abnormal 60.0-128 .0 [facility] Globulin 3.7 g/dL Normal 1.9-3.9 [facility] Glucose mass conc 101 mg/dL Abnormal 70-99 [facility] Potassium molar conc 4.6 mmol/L Normal 3.6-5.0 [facility] Protein 8 g/dL Abnormal 5.9-7.8 [facility] Sodium 136 mmol/L Normal 135-145 [facility] Urea nitrogen 34 mg/dL Abnormal 6-20 [facility] D DIMERon 04-25-2016 D DIMER 1569.6 H NG/ML Abnormal 0-499 [facility] EKGon 04-25-2016 cardio: EKG Test Reason : Normal [facility] ESR, SED RATEon 04-25-2016 ESR /SEDRATE 10 MM/HR Normal 0-20 [facility] HEMOGLOBIN A1Con 04-25-2016 Hemoglobin A1c/Hemoglobin.total mass fraction (Bld) 7 % Abnormal 4.0-6.0 [facility] TSHon 04-25-2016 Thyroid stimulating hormone (TSH) 2.79 UIU/ML Normal 0.34-5.60 [facility] CBC WITH DIFFon 01-04-2016 ABSOLUTE BASO 0.10 K/UL Normal 0.00-0.20 [facility] ABSOLUTE EOS 0.20 K/UL Normal 0-0.33 [facility] ABSOLUTE LYMPHOCYTE 1.80 K/UL Normal 1.1-4.8 [facility] ABSOLUTE MONOCYTE 0.50 K/UL Normal 0.2-0.7 [facility] ABSOLUTE NEUTROPHIL 3.30 K/UL Normal 1.83-8.70 [facility] [facility] Auto #/vol (Bld) 0.9 % Normal 0.0-1.5 [facility] DIFF TYPE AUTO Normal [facility] Eosinophils/100 leukocytes 4.2 % Abnormal 0.0-3.0 [facility] Erythrocyte distribution width Auto Ratio (RBC) 14.8 % Abnormal 10.9-14.3 [facility] Erythrocytes (RBC) 4.52 M/UL Normal 4.50-5.50 [facility] Hematocrit (HCT) 40.1 % Abnormal 41.0-50.0 [facility] Hemoglobin mass conc (Bld) 13.3 g/dL Abnormal 13.5-16.5 [facility] Lymphocytes/100 leukocytes 29.9 % Normal 24-44 [facility] MCH 29.4 pg Normal 28.0-34.0 [facility] MCHC mass conc (RBC) 33.2 MG/DL Normal 33.0-37.0 [facility] MCV 88.7 fL Normal 80-100 [facility] Monocytes/100 leukocytes 8.5 % Normal 3.4-9.0 [facility] NEUTROPHIL 56.5 % Normal 40.0-74.0 [facility] Platelets 168 10*3/uL Normal 150-450 [facility] WBC (Leukocytes) 5.9 10*3/uL Normal 4.5-11.0 [facility] COMPREHENSIVE MEon 6 Alanine aminotransferase (ALT) 20 U/L Normal 10-63 [facility] Albumin 4 g/dL Normal 3.4-4.8 [facility] Albumin/Globulin Ratio 1.1 {ratio} Normal 1.1-2.2 [facility] ALK PHOS 43 U/L Normal 42-121 [facility] Anion gap 9 mmol/L Normal 3-11 [facility] Aspartate aminotransferase (AST) 20 U/L Normal 10-41 [facility] Bilirubin (direct) 0.6 mg/dL Normal 0.3-1.5 [facility] Calcium 9.6 mg/dL Normal 8.5-10.5 [facility] Chloride 108 mmol/L Abnormal 98-107 [facility] CO2 22 mmol/L Normal 21-31 [facility] Creatinine 1.7 mg/dL Abnormal 0.6-1.3 [facility] eGFR (non-black) 49 mL/min/{1.73_m2} Abnormal 60.0-128.0 [facility] eGFR (non-black) 40.5 mL/min/{1.73_m2} Abnormal 60.0-128 .0 [facility] Globulin 3.5 g/dL Normal 1.9-3.9 [facility] Glucose mass conc 263 mg/dL Abnormal 70-99 [facility] Potassium molar conc 4.9 mmol/L Normal 3.6-5.0 [facility] Protein 7.5 g/dL Normal 5.9-7.8 [facility] Sodium 139 mmol/L Normal 135-145 [facility] Urea nitrogen 39 mg/dL Abnormal 6-20 [facility] HEMOGLOBIN A1Con 01-04-2016 Hemoglobin A1c/Hemoglobin.total mass fraction (Bld) 6.7 % Abnormal 4.0-6.0 [facility] LIPID B PROFILEon 01-04-2016 Cholesterol 170 mg/dL Normal 140-200 [facility] HDL Cholesterol 31 mg/dL Normal 29-71 [facility] LDL Cholesterol 102 MG/DL Normal 0-129 [facility] LDL to HDL Ratio 3.3 Normal [facility] Triglyceride 297 mg/dL Abnormal 41-189 [facility] PROTIME COUMADINon 6 INR Coag RelTime (PPP) 3.53 H Abnormal 2.0-3.5 [facility] URINE MICRO ALBUon 6 UR RDM MICROALBUMIN 39.4 H UG/ML Abnormal 0.0-19.0 [facility] Vital Signs Date Time Vital Sign Value Performing Clinician Faci lity 08-23-2024 13:35-0400 Body temperature 97.9 [degF] No Primary Care Physician [facility] 08-23-2024 13:35-0400 Diastolic blood pressure 61 mm[Hg] No Primary Care Physician [facility] 08-23-2024 13:35-0400 Heart rate 67 /min No Primary Care Physician [facility] 08-23-2024 13:35-0400 Respiratory rate 17 /min No Primary Care Physician [facility] 08-23-2024 13:35-0400 SaO2% (BldA) [Mass fraction] 95 % No Primary Care Physician [facility] 08-23-2024 13:35-0400 Systolic blood pressure 151 mm[Hg] No Primary Care Physician [facility] 08-23-2024 06:00-0400 Body mass index (BMI) [Ratio] 46 kg/m2 No Primary Care Physician [facility] 08-23-2024 06:00-0400 Body weight 141 kg No Primary Care Physician [facility] 08-22-2024 11:03-0400 Body height 175.26 cm No Primary Care Physician [facility] 08-21-2024 09:18-0400 Inhaled oxygen flow rate 2 L/min No Primary Care Physician [facility] 08-20-2024 06:00-0400 Body temperature 98.1 [degF] No Primary Care Physician [facility] 08-20-2024 06:00-0400 Diastolic blood pressure 58 mm[Hg] No Primary Care Physician [facility] 08-20-2024 06:00-0400 Heart rate 78 /min No Primary Care Physician [facility] 08-20-2024 06:00-0400 Inhaled oxygen flow rate 2 L/min No Primary Care Physician [facility] 08-20-2024 06:00-0400 Respiratory rate 18 /min No Primary Care Physician [facility] 08-20-2024 06:00-0400 SaO2% (BldA) [Mass fraction] 98 % No Primary Care Physician [facility] 08-20-2024 06:00-0400 Systolic blood pressure 100 mm[Hg] No Primary Care Physician [facility] 08-19-2024 23:48-0400 Body height 175.01 cm No Primary Care Physician [facility] 08-19-2024 23:48-0400 Body mass index (BMI) [Ratio] 44.6 kg/m2 No Primary Care Physician [facility] 08-19-2024 23:48-0400 Body weight 136.8 kg No Primary Care Physician [facility] 11-06-2022 16:37-0400 Body temperature 97.8 [degF] [facility] 11-06-2022 16:37-0400 Diastolic blood pressure 91 mm[Hg] [facility] 11-06-2022 16:37-0400 Heart rate 72 /min [facility] 11-06-2022 16:37-0400 Respiratory rate 18 /min [facility] 11-06-2022 16:37-0400 SaO2% (BldA) [Mass fraction] 96 % [facility] 11-06-2022 16:37-0400 Systolic blood pressure 154 mm[Hg] [facility] 11-06-2022 14:11-0400 Body height 175.26 cm [facility] 11-06-2022 14:11-0400 Body mass index (BMI) [Ratio] 48.2 kg/m2 [facility] 11-06-2022 14:11-0400 Body weight 148.32 kg [facility] 06-02-2022 08:00-0500 Heart rate 92 /min Ericka Ange Work Phone: [facility] 06-02-2022 08:00-0500 Respiratory rate 88 /min Ericka Ange Work Phone: [facility] 06-02-2022 08:00-0500 SaO2% (BldA) [Mass fraction] 90 % Ericka Ange Work Phone: [facility] 06-02-2022 07:55-0500 Body temperature 97.6 [degF] Ericka Ange Work Phone: [facility] 06-02-2022 07:55-0500 Diastolic blood pressure 64 mm[Hg] Ericka Ange Work Phone: [facility] 06-02-2022 07:55-0500 Systolic blood pressure 125 mm[Hg] Ericka Ange Work Phone: [facility] 05-31-2022 19:20-0500 Body height 175.26 cm Ericka Ange Work Phone: [facility] 05-31-2022 19:20-0500 Body mass index (BMI) [Ratio] 44.2 kg/m2 Ericka Ange Work Phone: [facility] 05-31-2022 19:20-0500 Body weight 135.99 kg Ericka Ange Work Phone: [facility] 04-23-2022 15:22-0500 SaO2% (BldA) [Mass fraction] 96 % Ericka Ange Work Phone: [facility] 04-23-2022 11:55-0500 Body temperature 97.9 [degF] Ericka Ange Work Phone: [facility] 04-23-2022 11:55-0500 Diastolic blood pressure 94 mm[Hg] Ericka Ange Work Phone: [facility] 04-23-2022 11:55-0500 Heart rate 85 /min Ericka Ange Work Phone: [facility] 04-23-2022 11:55-0500 Respiratory rate 17 /min Ericka Ange Work Phone: [facility] 04-23-2022 11:55-0500 SaO2% (BldA) [Mass fraction] 98 % Ericka Ange Work Phone: [facility] 04-23-2022 11:55-0500 Systolic blood pressure 130 mm[Hg] Ericka Ange Work Phone: [facility] 04-19-2022 14:43-0500 Diastolic blood pressure 70 mm[Hg] Ericka Ange Work Phone: [facility] 04-19-2022 14:43-0500 Heart rate 89 /min Ericka Ange Work Phone: [facility] 04-19-2022 14:43-0500 Respiratory rate 18 /min Ericka Ange Work Phone: [facility] 04-19-2022 14:43-0500 SaO2% (BldA) [Mass fraction] 99 % Ericka Ange Work Phone: [facility] 04-19-2022 14:43-0500 Systolic blood pressure 107 mm[Hg] Ericka Ange Work Phone: [facility] 04-19-2022 03:04-0500 Body temperature 99.4 [degF] Ericka Ange Work Phone: [facility] 04-19-2022 00:16-0500 Body height 175.26 cm Ericka Ange Work Phone: [facility] 04-19-2022 00:16-0500 Body weight 148.78 kg Ericka Ange Work Phone: [facility] 08-25-2016 19:00-0400 BP Diastolic 94 mm[Hg] [facility] 08-25-2016 19:00-0400 BP Systolic 162 mm[Hg] [facility] 08-25-2016 19:00-0400 Pulse (Heart Rate) 74 /min [facility] 08-25-2016 19:00-0400 Respiratory Rate 18 /min [facility] 08-25-2016 14:38-0400 Body Temperature 97.7 [degF] [facility] Encounters Encounter Date Encounter Type Care Provider Facility Start: 08-23-2024 Non-patient / Non-visit Dr. Mao Muse MD [facility] Work Phone: Start: 08-22-2024 Non-patient / Non-visit Dr. Mao Muse MD [facility] Work Phone: Start: 08-21-2024 Non-patient / Non-visit Dr. Mao Muse MD [facility] Work Phone: Start: 08-20-2024 End: 08-23-2024 Evaluation and management of inpatient Dr. Saroj Gutierrez DO -Intensive Care Unit Work Phone: Start: 08-20-2024 Non-patient / Non-visit Dr. Bennett DO [facility] Work Phone: Start: 08-20-2024 ambulatory No Primary Car e Physician Facility[place] Start: 03-18-2024 End: 03-18-2024 Emergency department patient visit [facility] Facility:[facility] Start: 11-06-2022 End: 11-06-2022 Emergency department patient visit [facility] Work Phone: Start: 06-06-2022 ambulatory DEVIKA STEIN Facility:[facility] Start: 06-02-2022 Non-patient / Non-visit Alejandra jeanne Ange Work Phone: [facility] Start: 06-01-2022 Non-patient / Non-visit Aleajndra ly Ange Work Phone: [facility] Start: 05-31-2022 End: 06-02-2022 Evaluation and management of inpatient Naresh Sainz Facility:[facility] Start: 05-31-2022 End: 06-02-2022 Evaluation and management of inpatient Ericka Ange Work Phone: [facility] [facility] Start: 04-23-2022 ambulatory Errol Jagjit Rosalesey [facility] ty:[facility] Start: 04-23-2022 Non-patient / Non-visit Alejandra ly Ange Work Phone: [facility] Hospital[facility] Start: 04-22-2022 Non-patient / Non-visit Alejandra ly Ange Work Phone: [facility] Start: 04-21-2022 Non-patient / Non-visit Alejandra ly Ange Work Phone: [facility] Start: 04-20-2022 Non-patient / Non-visit Alejandra ly Ange Work Phone: [facility] Start: 04-19-2022 Non-patient / Non-visit Alejandra ly Ange Work Phone: [facility] Start: 04-19-2022 Evaluation and management of inpatient Ericka Ange Work Phone: [facility] 3 Start: 04-19-2022 observation encounter Ericka Ange Work Phone: [facility] Work Phone: Start: 04-19-2022 End: 04-23-2022 ambulatory Ericka Ange Facility:[facility] Start: 04-19-2022 End: 04-23-2022 Evaluation and management of inpatient Ericka Ange Work Phone: [facility] Start: 04-19-2022 End: 04-23-2022 observation encounter Ericka Ange Work Phone: [facility] Work Phone: Start: 03-10-2022 ambulatory Sunita Lakeland Facility :[facility] Start: 01-08-2022 ambulatory [facility] Facility:[facility] Start: 11-07-2021 ambulatory [facility] Facility:[facility] Start: 08-29-2021 ambulatory [facility] Facility:[facility] Start: 07-02-2021 End: 07-12-2021 Evaluation and management of inpatient UNKNOWN PROVIDER Facility:[facility] Start: 06-26-2021 [facility] Start: 05-22-2021 [facility] Start: 03-20-2021 ambulatory [facility] Facility:[facility] Procedures Date Procedure Procedure Detail Performing Clinician Start: 08-23-2024 Estimated creatinine clearance No Primary Care Physician Start: 08-20-2024 Blood culture No Primar y Care Physician Start: 08-20-2024 SARS-CoV-2, Influenz a & RSV (PCR) No Primary Care Physician Start: 08-20-2024 Urine culture No Primar y Care Physician Start: 08-20-2024 Complete ultrasound of kidneys and bladder No Primary Care Physician Start: 08-20-2024 Urnls dip stick/tabl et reagent auto microscopy No Primary Care Physician Start: 08-20-2024 CT angiography of ch est with contrast No Primary Care Physician Start: 08-19-2024 Blood culture No Primar y Care Physician Start: 07-11-2021 INSERTION OF INFUSIO N DEV INTO SUP VENA CAVA, PERC UNKNOWN PROVIDER Start: 07-04-2021 DETACHMENT AT RIGHT 4TH TOE, COMPLETE, OPEN APPROA UNKNOWN PROVIDER Start: 07-03-2021 EXCISION OF BUTTOCK SUBCU/FASCIA, OPEN APPROACH UNKNOWN PROVIDER Adenoid excision SHEILA PUENTE ON Anesthesia for total shoulder replacement SHEILA DUVAL Arthroplasty of knee SHEILA DUVAL Bilateral dissection tonsillectomy SHEILA DUVAL Cholecystectomy SHEILA NICK N Cholesterol MAO ELROY [place] [facility] SHEILA BLACKMON Incision of trachea SHEILA DUPREE Microbial culture Ericka oneill Work Phone: Repair of quadriceps SHEILA DUVAL SARS-CoV-2 Rapid RNA (RT-PCR) Ericka Cassidy Work Phone: SARS-CoV-2 Rapid RNA (RT-PCR) Ericka Cassidy Work Phone: Urine culture Ericka campos Work Phone: Urine culture Ericka campos Work Phone: Plan of Treatment Date Care Activity Detail Author Start: 08-23-2024 Referral to service [facility] Start: 08-23-2024 Patient discharge [facility] Start: 08-22-2024 Consultation [facility] Start: 08-22-2024 Referral to hvac project engineer [facility] Start: 08-21-2024 [facility] Start: 08-20-2024 Bacteria identified in Blood by Culture Blood Culture [facility] Start: 08-20-2024 Bacteria identified in Urine by Culture Urine Culture [facility] Start: 08-20-2024 Following clinical p athway protocol [facility] Start: 08-20-2024 Assessment of risk o f venous thromboembolism [facility] Start: 08-20-2024 Elevation of head of bed [facility] Start: 08-20-2024 Insertion of cathete r into peripheral vein [facility] Start: 08-20-2024 Measuring intake and output [facility] Start: 08-20-2024 Oxygen therapy [facility] Start: 08-20-2024 Providing care accor ding to standard [facility] Start: 08-20-2024 Referral to occupati onal therapist [facility] Start: 08-20-2024 Referral to service [facility] Start: 08-20-2024 Vital signs measurements [facility] Start: 08-20-2024 End: 08-20-2024 [facility] Start: 08-20-2024 Care regimes management [facility] Start: 08-20-2024 Notification of physician [facility] Start: 08-20-2024 Verification routine [facility] Start: 08-20-2024 Admission procedure [facility] Start: 08-20-2024 Hospital admission, emergency, from emergency room, medical nature [facility] Start: 08-20-2024 End: 08-20-2024 [facility] Start: 06-02-2022 [facility] Start: 06-02-2022 Patient discharge [facility] Start: 05-31-2022 Referral to occupati onal therapist [facility] Start: 05-31-2022 End: 06-01-2022 Referral to service [facility] Start: 05-31-2022 Hospital admission [facility] Start: 05-31-2022 Vascular disease ris k assessment [facility] Start: 04-27-2022 [facility] Start: 04-26-2022 End: 04-26-2022 [facility] Start: 04-25-2022 End: 04-25-2022 [facility] Start: 04-24-2022 End: 04-24-2022 [facility] Start: 04-23-2022 Patient discharge [facility] Start: 04-23-2022 End: 04-23-2022 [facility] Start: 04-22-2022 [facility] Start: 04-21-2022 [facility] Start: 04-21-2022 [facility] Start: 04-21-2022 [facility] Start: 04-21-2022 [facility] Start: 04-20-2022 General health panel [facility] Start: 04-20-2022 [facility] Start: 04-19-2022 Referral to occupati onva therapist [facility] Start: 04-19-2022 Referral to service [facility] Start: 04-19-2022 Hospital admission [facility] Start: 04-19-2022 Vascular disease ris k assessment [facility] Start: 04-19-2022 End: 04-19-2022 [facility] Start: 04-19-2022 [facility] Start: 04-19-2022 End: 04-19-2022 [facility] Start: 04-19-2022 Referral to service [facility] Bacteria identified in Blood by Culture Blood Culture [facility] Bacteria identified in Unspecified specimen by Anaerobe+Aerobe culture [facility] Evaluation of urine specimen [facility] Gabapentin [Mass/vol ume] in Serum, Plasma or Blood [facility] Influenza virus B Ag [Presence] in Unspecified specimen [facility] INR in Platelet poor plasma by Coagulation assay [facility] Ketones [Presence] in Urine [facility] Lactic acid measurement [facility] Microbial culture Blood Culture [facility] Microbial culture Blood Culture [facility] Nitrate [Presence] in Urine [facility] Patient Education [facility] Work Phone: Patient referral [facility] Work Phone: pH of Urine [facility] Prothrombin time (PT ) in Blood by Coagulation assay [facility] SARS-CoV-2 Rapid RNA (RT-PCR) SARS-CoV-2 Rapid RNA (RT-PCR) [facility] Specific gravity of Urine [facility] Urinalysis, blood, qualitative [facility] Urine culture Urine Culture [facility] Urine culture [facility] Urine dipstick for glucose [facility] Urine dipstick for protein [facility] Urine examination [facility] Urine leukocyte test [facility] Immunizations Immunization Date Immunization Notes Care Provider Fa cility pneumococcal polysac charide vaccine, 23 valent SHEILA DUVAL [facility] Payers Date Payer Category Payer Unknown [id number] 2022 Medicare [id number] 2022 Unknown [id number] 2021 Private Health Insurance [id number] 2021 Self-pay 2021 Unknown [id number] Medicare [id number] Medicare MEDICARE OUTPATI ENT PART B [id number] Medicare MEDICARE PART A B [id number] Unknown [id number]. 630 Unknown [id number] [id number]. 630 Unknown [id number] 2.16.840.1.611244.3.579.2. 630 Unknown [id number] 2.16.840.1.349290.3.579.2. 630 Unknown [id number] 2.16.840.1.248888.3.579.2. 630 Unknown [id number] 2.16.840.1.036324.3.579.2. 630 Unknown [id number] 2.16.840.1.671691.3.579.2. 630 Unknown [facility] [id number] Unknown [id number] 2.16.840.1.796399.3.579.2. 212 Unknown [id number] 2.16.840.1.033264.3.579.2. 212 Unknown [id number] 2.16.840.1.409911.3.579.2. 921 Unknown [id number] 2.16.840.1.926589.3.579.2. 921 Unknown [id number] 2.16.840.1.845689.3.579.2. 462 Unknown [id number] 2.16.840.1.772392.3.579.2. 462 Unknown [id number] 2.16.840.1.294808.3.579.2. 462 Unknown [id number] 2.16.840.1.978018.3.579.2. 462 Unknown [id number] 2.16.840.1.496022.3.579.2. 462 Unknown [id number] 2.16.840.1.930613.3.579.2. 462 Social History Date Type Detail Facility never a smoker [facility] Start: 04-19-2022 End: 08-20-2024 Tobacco smoking status NHIS Never smoked tobacco (finding) [facility] Start: 04-19-[address] [facility] Start: 1950 Sex Assigned At Male S [facility] Start: 11-06-2022 Tobacco smoking stat us NHIS Unknown if ever smoked [facility] Start: 08-20-2024 Sex Male (finding) [facility] Goals Date Patient Goal Desired Activity /State Functional Status Date Assessment Result Facility 08-23-2024 Functional status Chair [facility] Work Phone: 06-02-[address] [facility] Work Phone: 06-02-2022 Functional status Speech Pattern Clear [facility] Work Phone: 05-31-[address] [facility] Work Phone: 05-31-2022 Functional status Support Person Spouse S [facility] Work Phone: 04-23-[address] [facility] Work Phone: 04-22-2022 Functional status Hard of Hearing [place] [facility] Work Phone: 04-19-2022 Functional status Walker-Wheeled [place] [facility] Work Phone: 04-19-2022 Functional status Speech Pattern Appropri ate [facility] Work Phone: 04-19-[address] [facility] Work Phone: Mental Status Date Assessment Result Facility 08-23-2024 Cognitive function Voice/Name [facility] Work Phone: 08-20-2024 Cognitive function Level Of Cons ciousness Follows Commands;Drowsy [facility] Work Phone: 06-02-2022 Cognitive function Impaired Cognition No [facility] Work Phone: 06-01-2022 Cognitive function Cooperative [facility] Work Phone: 04-23-2022 Cognitive function Yes [facility] Work Phone: 04-23-2022 Cognitive function Mood Descript ion Appropriate;[facility] Work Phone: 04-19-2022 Cognitive function Mood Description [facility] Work Phone: Clinical Notes 04-19-2022 to 08-23-2024 Note Date & Type Note Facility 08-23-2024 Note [facility] [address] [place] [address] Discharge Summary 08/23/24 1117 MR#: [id number] Acct: [id number] Name: CHARLI PORRAS Rep #: [id number] : [id number] 74 From: Mao Muse MD PCP: [facility] Status:ADM IN Location: [place] [address] Providers Date of Admission: 08/20/24 Date of Discharge: 08/23/24 Primary Care Physician: MELY DUARTE Consultations 08/20/24 06:10 Consult: Senior Instructor / Pulmonary Medicine Routine Consulting Provider: Intensivists/Pulmonary Med Reason for Consult: suspected urosepsis EMERGENT Consult: No Notified: Yes Date Notified: 08/20/24 Time Notified: 03:20 Method of Notification: Answering Service 08/22/24 08:08 Consult: Nephrology Routine Consulting Provider: Kerline Miranda Reason for Consult: MISTY on CKD, UTI with septic shock EMERGENT Consult: No Notified: Yes Date Notified: 08/22/24 Time Notified: 08:09 Method of Notification: Text 08/22/24 08:10 Consult: Infectious Disease Routine Consulting Provider: Tello Borrego Reason for Consult: septic shock, suspected UTI, but culture PENDING EMERGENT Consult: No Notified: Yes Date Notified: 08/22/24 Time Notified: 08:10 Method of Notification: Text Reason For Visit: UROSEPSIS Diagnosis Discharge Diagnosis (1) Septic shock: Status: Acute Code(s): A41.9 - Sepsis, unspecified organism; R65.21 - Severe sepsis with septic shock (2) Dementia: Status: Acute Code(s): F03.90 - Unspecified dementia, unspecified severity, without behavioral disturbance, psychotic disturbance, mood disturbance, and anxiety (3) Insulin dependent diabetes mellitus: Status: Acute Plan Patient is a 74-year-old male who presented to [facility] ED on 08/20/2024 with worsening confusion and weakness for few weeks. Had UTI for past 2 weeks. As per family he was less responsive and having tremors at about 5 PM on the day of admission. EMS vitals show sinus tachycardia 106/min, tachypnea 36/min BP 108/60. History of recurrent UTI suspected BPH and advanced dementia. 1. Septic shock suspected secondary to UTI ??? Admit under inpatient status to ICU. Senior Instructor consulted. The patient meets sepsis criteria with SBP less than 90, lactate 3.4, acute metabolic encephalopathy most likely due to UTI as the patient has history of recurrent UTI and has BPH. In ED, patient received 3 L of IV fluids in ED and MAP remained around 65, and CVC catheter inserted and started on Levophed. Renal/bladder ultrasound ordered. No prior urine culture data available, will treat with IV Zosyn for now. Follow-up urine culture and blood cultures. 08/20: Patient seen by command and control officer. Antibiotic Zosyn changed to cefepime 1 g Q12 hourly. Discontinue vancomycin. Remove Marx catheter. Marx has traumatic bleeding and fresh clots. Discussed with nursing station. Titrate metoprolol. Patient has leg swelling and had A lot of fluid therefore discontinue IV fluid 08/21: Patient is off the pressor. Awake and alert. Blood and urine culture pending. Triple PCR for SARS-CoV-2, flu and RSV are negative seen by command and control officer. Renal bladder ultrasound shows mild bilateral renal cortical thinning. Tiny nonobstructing right midpole renal calculus. Patient hemodynamically stable for transfer to PCU 08/22: BP 153/64. Suspected urinary source for septic shock. History of BPH. Urine culture pending. Continue cefepime. 08/24: Patient was seen by ID recommended to discharge on cefdinir 300 mg p.o. twice daily for 4 more days. 2. Acute encephalopathy in setting of dementia with behavioral disturbances, multiple etiology infectious and metabolic ??? Per family, is alert and oriented x 3 at baseline but repeats himself regularly with conversation and has poor short-term memory 08/21: Acute metabolic and encephalopathy resolved. 08/25: Patient with advanced dementia and does not remember about the symptoms and chronology prior to admission. 3. Acute on chronic debility ??? PT/OT/case management consulted. Patient requires walker at home and requires assistance with most activities of daily living from and other family members. Has required SNF and home health care in the past. Appreciate therapy recommendations. 4. Suspected BPH with obstructive symptoms ??? No formal BPH diagnosis per but symptoms of frequent straining with urination and recurrent UTIs seem consistent with BPH. Renal/bladder ultrasound ordered as above. Marx catheter placed in the ED, will need to determine if void trial can be completed prior to discharge. 08/23: Renal ultrasound does not show hydronephrosis. Follow-up with urologist Dr. Brand in 2 weeks 5. Type 2 diabetes mellitus with neuropathy ??? Home regimen of insulin glargine 75 units at night, glipizide, Trulicity and Jardiance. Blood glucose (more content not included)... [facility] 08-20-2024 History and physi liz note [facility] 08-20-2024 Evaluation note Diagnosis Onset Date Resolution Acute metabolic encephalopathy acute August 20, 2024 3:15am Septic shock acute August 20, 2024 3:15am UTI (urinary tract infection) acute August 20, 2024 3:15am [facility] Work Phone: 1(523) 282-115304-19-2025 Evaluation note* Diagnosis Onset Date Resolution Status Admit Date Acute metabolic encephalopathy acute August 20, 2024 3:15am Septic shock acute August 20, 2024 3:15am UTI (urinary tract infection) acute August 20, 2024 3:15am MISTY (acute kidney injury) resolved August 20, 2024 3:15am CKD (chronic kidney disease) , stage III inactive August 20, 2024 3:15am Dementia inactive August 20 3:15am Insulin dependent diabetes mellitus inactive August 20, 2024 3:15am [facility] Work Phone: [phone] 616-342404-19-2025 History and physical note Author Saroj Gutierrez [facility] Note Date/Time August 20, 2024 5:3 9am [facility] Medical Records Department [address] [place] [address] H&P Exam - Hospitalist 08/20/24 0220 MR#: [id number] Acct: [id number] Name: CHARLI PORRAS Rep #:[id number] : 1950 74 From: Saroj scott DO PCP: Care Physician,No Primary Status :ADM IN Location: ICU ICU01-1 HPI - General General Date of Admission: 08/20/24 Date of Service: 08/20/24 Chief Complaint: Worsening confusion with tremors and weakness HPI Narrative CHARLI PORRAS, is a 74 M who presented to [facility] ED on 08/20/2024 with worsening confusion with tremors and weakness. Medical history is significant for dementia, recurrent UTI with suspected BPH and type 2 diabetes. He lives at home with his . Per family, at baseline he is alert and appears to make appropriate conversation until he begins to repeat himself. He does have weakness at baseline and uses a walker for ambulation. He has required both SNF placement and home health care in the past. He was treated for a UTI about 2 weeks ago. Earlier this evening his noted that he was becoming confused and then had an episode of significant tremors. She was unable to get him up out of bed due to weakness and confusion, so they called EMS to bring him in. On arrival to the ED BP was 93/50, heart rate 106, temp 99.8 F and satting in the low 90s on 2 L nasal cannula. UA was grossly infectious appearing. Given his hypoxia, CTA chest was obtained and was negative for PE and otherwise unremarkable. At temperature peak of 101.8 F in the ED. Given concern for urosepsis, hospitalist was contacted for admission. I saw the patient at bedside in the ED, and other family member present. Patient was fatigued appearing but did make eye contact with me and told me that he was at [facility]. However he could not answer any other questions for me and was not alert to time. He denied any pain or discomfort currently. History wasobtained from and family member. He has had UTIs in the past but has neverhad urosepsis. He has required Marx catheter placement during hospitalizationsbut is never needed to go home with a Marx catheter. He does report frequent straining with urination at home and had burning with urination recently. No other acute concerns at this time. Notably, patient was completing his third liter of IV fluids when I saw him. Discussed with Dr. Brown and given that his blood pressure is still running low,plan is to place central line and begin vasopressors prior to patient being moved over to the ICU. [facility] Medical History Kidney disease Gout Dementia Diabetes HTN (hypertension) Home Medications ?Medication ?Instructions ?Recorded ?Last Taken ?Type allopurinol 100 mg tablet 100 mg PO DAILYCM 05/03/13 U nknown History gabapentin 800 mg tablet 800 mg PO TIDCM 05/03/13 Unk nown History lvixpshv-hfk-nwalp acid 0.4 1 ea PO DAILY 05/03/13 Unk nown History mg-lycopene 300 mcg-lutein 250 mcg tablet (Centrum Silver) atorvastatin 10 mg tablet 10 mg PO QPM 03/18/24 Unknow n History donepezil 10 mg tablet 10 mg PO QHS 03/18/24 Unknow n History dulaglutide 3 mg/0.5 mL 3 mg subcut QWEEK 03/18/24 U nknown History subcutaneous pen injector (Trulicity) duloxetine 60 mg capsule,delayed 60 mg PO DAILY Unknown History release empagliflozin 25 mg tablet 25 mg PO DAILY 03/18/24 Unk nown History (Jardiance) ezetimibe 10 mg tablet 10 mg PO DAILY 03/18/24 Unkn own History glipizide 10 mg tablet, extended 10 mg PO DAILY Unknown History release 24 hr insulin glargine 100 unit/mL (3 75 unit subcut QPM Unknown History mL) subcutaneous pen (Basaglar KwikPen U-100 Insulin) levothyroxine 50 mcg tablet 50 mcg PO DAILY 03/18/24 U nknown History lisinopril 2.5 mg tablet 2.5 mg PO DAILY 03/18/24 Unk nown History pramipexole 0.125 mg tablet 0.125 mg PO BID 03/18/24 U nknown History quetiapine 100 mg tablet 100 mg PO BID 03/18/24 Unkno wn History quetiapine 50 mg tablet 50 mg PO DAILY 03/18/24 Unkn own History rivaroxaban 20 mg tablet (Xarelto) 20 mg PO DAILY 03/04 09/24 Unknown History tizanidine 4 mg tablet 4 mg PO QPM 03/18/24 Unknown History tramadol 50 mg tablet 50 mg PO 4X/DAY PRN PRN pain 03/18/24 Unknown History trazodone 50 mg tablet 100 mg PO BID 03/18/24 Unkno wn History clonidine 0.2 mg/24 hr weekly 1 patch topical QWEEK Unknown History transdermal patch Allergy/AdvReac Type Severity Reaction Status Date / Time ibuprofen AdvReac Abd Verified 08/19/24 23:53 cramps/diarrhea Surgical History History of left shoulder replacement H/O knee surgery Social History Smoking Status: Never smoker ROS Review of Systems ROS Unobtainable: due to encephalopathy Vital Signs Vital Signs Vital Signs: 08/19/24 23:48 08/19/24 23:51 08/20/24 00:08 Temperature 99.8 F H 99.8 F H Temperature Source Oral Oral Pulse Rate 106 H 106 H Respiratory Rate 26 H 26 H Blood Pressure 93/50 L 93/50 L Blood Pressure Mean 64 64 Pulse Ox 93 93 94 Oxygen Delivery Method Nasal Cannula Nasal Cannula Nasal Cannula Oxygen Flow Rate (L/min) 2 2 2 08/20/24 00:39 08/20/24 01:10 08/20/24 02:00 Temperature 101.8 F H 101.8 F H 100.8 F H Temperature Source Core Core Core Pulse Rate 100 96 85 Respiratory Rate 20 H 24 H 19 H Blood Pressure 105/39 L 82/47 L 84/51 L Blood Pressure Mean 61 58 62 Pulse Ox 96 98 96 Oxygen Delivery Method Nasal Cannula Nasal Cannula Room Air Oxygen Flow Rate (L/min) 2 2 Weight Weight: 136.8 kg Body Mass Index (BMI) 44.6 Physical Exam Const alert and no apparent distress Constitutional Narrative: Elderly male, class III obesity, fatigued but alert and able to make appropriateeye contact, alert and oriented to person and place but not time, otherwise laying back comfortably in bed and in no acute distress. General Appearance: cooperative and comfortable Orientation / Consciousness: confused HEENT normocephalic, head/scalp atraumatic, hearing grossly normal bilaterally and nasal mucous membranes and turbinates normal Eyes PERRL, EOMs intact bilaterally and conjunctivae normal Neck full ROM Chest inspection of chest normal Resp normal respiratory effort, normal air movement, no use of accessory muscles and clear to auscultation bilaterally Cardio regular rate, regular rhythm, no murmurs and peripheral pulses 2+ throughout GI normal to inspection, nondistended, normoactive bowel sounds, soft to palpation,non-tender and non-distended Back/Spine normal ROM Extremity normal to inspection and no pedal edema Skin no rashes or lesions noted Neuro moves all extremities and no focal motor deficits Results Lab / Micro Data 08/19/24 23:50 08/19/24 23:50 Labs: Laboratory Results - last 24 hr 08/19/24 23:50: WBC 8.7, RBC 4.08 L, Hgb 12.7 L, Hct 37.4 L, MCV 91.7, MCH 31.1,MCHC 34.0, RDW Std Deviation 48.7 H, RDW Coeff of Veronica 14.6, Plt Count 126 L, MPV9.3, Immature Gran % (Auto) 1.000 H, Neut % (Auto) 87.2 H, Lymph % (Auto) 6.3 L,[place] % (Auto) 4.9, Eos % (Auto) 0.1, Baso % (Auto) 0.5, Absolute Neuts (auto) 7.6, Absolute Lymphs (auto) 0.55 L, Nucleated RBC % 0, PT 19.2 H, INR 1.6, APTT 32.3, Sodium 133, Potassium 5.3 H, Chloride 100, Carbon Dioxide 19.8 L, Anion Gap 14, BUN 17, Creatinine 1.90 H, Estim Creat Clear Calc 45.50 L, Est GFR (MDRD) Non-Af 36 L, BUN/Creatinine Ratio 9.2 L, Glucose 245 H, Lactic Acid 3.4 H*, Calcium 8.8, Total Bilirubin 0.76, AST 29, ALT 24, Alkaline Phosphatase 78, Total Protein 7.0, Albumin 3.6, Globulin 3.4, Albumin/Globulin Ratio 1.1, Procalcitonin 0.32 H 08/20/24 00:20: Urine Color Stephanie, Urine Clarity Cloudy, Urine pH 6.0, Ur Specific [place] 1.010, Urine Protein 100 H, Urine Glucose (UA) 1000 H, Urine Ketones 5 H, Urine Occult Blood 250 H, Urine Nitrite Negative, Urine Bilirubin Negative, Urine Urobilinogen Normal, Ur Leukocyte Esterase 500 H, Urine RBC > 100 SEEN, Urine WBC >100 SEEN, Ur Squamous Epith Cells 0-5 SEEN, Amorphous Sediment 1+, Urine Bacteria 2+, Urine Mucus RARE Micro: Microbiology 08/20/24 00:27 Mucosa - Nose SARS-CoV-2, Influenza & RSV (PCR) - Final Imaging Radiology Impression Chest CTA 08/20/24 00:08 IMPRESSION: Motion artifact significantly limits the evaluation. No large central or hilar saddle pulmonary embolism. Interlobar to subsegmental branches are not well evaluated. The central airways appear patent. Motion artifact and low appearing lung volumes. Bibasilar and dependent atelectasis. No focal consolidation. Three-vessel coronary calcification appears moderate. Reading Location: [id number] Assessment & Plan Assessment/Plan (1) Septic shock: (2) UTI (urinary tract infection): (3) Acute metabolic encephalopathy: PLAN: Plan Patient is a 74-year-old male who presented to [facility] ED on 08/20/2024 with worsening confusion with tremors and weakness. 1. Septic shock suspected secondary to UTI ? Admit under inpatient status to ICU. Senior Instructor consulted. Presentation seems most consistent with urosepsis given grossly infected urine with history of UTIs, no other clear infectious source, reported chills at home and acute encephalopathy as noted below. Met sepsis criteria with SBP less than 90, lactate 3.4, acute metabolic encephalopathy as noted below. Given 3 L of IV fluids in ED and MAP remained around 65, so CBC placed in the ED and pressors initiated. Renal/bladder ultrasound ordered. No prior urine culture data available, will treat with IV Zosyn for now. Follow- up urine culture and blood cultures. 2. Acute metabolic encephalopathy in setting of dementia with behavioral disturbances ? Per family, is alert and oriented x 3 at baseline but repeats himself regularly with conversation and has poor short-term memory. Is A&O x 2 in the ED to person and place but not answering any another questions appropriately. Strongly suspect secondary to UTI as above. No recent trauma, no need for head imaging at this time. Will keep n.p.o. status for now given his confusion but hopeful he will be cleared to at least swallow medications in the morning. Continue home donepezil, quetiapine and trazodone at night. 3. Acute on chronic debility ? PT/OT/case management consulted. Patient requires walker at home and requiresassistance with most activities of daily living from and other family members. Has required SNF and home health care in the past. Appreciate therapyrecommendations. 4. Suspected BPH with obstructive symptoms ? No formal BPH diagnosis per but symptoms of frequent straining with urination and recurrent UTIs seem consistent with BPH. Renal/bladder ultrasoundordered as above. Marx catheter placed in the ED, will need to determine if void trial can be completed prior to discharge. 5. Type 2 diabetes mellitus with neuropathy ? Home regimen of insulin glargine 75 units at night, glipizide, Trulicity and Jardiance. Blood glucose 245 in the ED. Will treat with Lantus 35 units at night and sliding scale insulin with meals for now, adjust as needed. Notably his Jardiance will increase risk for UTIs going forward so may be reasonable to discontinue this medication on discharge. Continue home gabapentin. Chronic medical conditions: ? Class III obesity: BMI 44 on admit. Complicates hospital course, care and prognosis. ? CKD stage IIIb: Creatinine 1.90 on admit, stable at baseline. Monitor daily BMP and urine output. ? Hypertension: Holding home lisinopril and clonidine. ? Hyperlipidemia: Continue home atorvastatin and Zetia. ? Restless leg syndrome: Continue home pramipexole. ? Hypothyroidism: Continue home Synthroid. ? Chronic pain syndrome: Continue home tramadol as needed and duloxetine. ? 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 ? History of gout: Continue home allopurinol. DVT prophylaxis: Not indicated, on Xarelto CODE STATUS: DNR CCA, DNI Expected disposition: TBD Total clinical time spent by myself addressing the patient's medical issues, reviewing all the data, and collaborating with patient's care team: 75 minutes. Charges/Coding Visit Charges Inpatient E&M: 78085 Init Hosp L3 08/20/24 8229 <Electronically signed by Saroj Gutierrez DO> Cosigner Signature (if applicable): CC: Dr. Saroj Gutierrez DO; No Primary Care Physician~ Signed ADDENDUM by Dr. Saroj Gutierrez DO on 08/20/24 at [address] Brown at 5:30am. Patient started on only 2.5 of peripheral levophed and blood pressures significantly increased to the 130s over 70s. Willhold off on central line placement for now. 08/20/24 0538<Electronically signed by Saroj Gutierrez DO> Cosigner Signature (if applicable): cc: Dr. Saroj Gutierrez DO; No Primary Care Physician ~* Signed [facility] Work Phone: 1(146) 187-390204-19-2025 Radiology Diagnostic study note [facility] Imaging Services [address] [place] [address] CTA Chest W/WO Contrast MR#: [id number] Acct: [id number] Name: CHARLI PORRAS Rep #: [id number] : 1950 M 74 From: Clay Garcia MD PCP: Care Physician,No Primary Status: [facility] Study:CTA Chest W/WO Contrast Date of Exam: 08/20/24 Exam# [id number] Ordering Dr: Dede Brown DO PROCEDURE: CTA CHEST W/WO CONTRAST 08/20/2024 REASON FOR EXAM: HYPOXIA TECHNIQUE: CTA imaging of the chest with intravenous contrast. Coronal and Sagittal reconstruction series were provided. Maximum intensity projection (MIPs) Volume rendering and CONTRAST: 100 cc Isovue 370 IV One or more dose reduction techniques were used (e.g., Automated exposure control, adjustment of the mA and/or kV according to patient size, use of iterative reconstruction technique). RADIATION DOSE SUMMARY: CTDlvol: 47.49 mGy DLP: 557.96 mGycm COMPARISON: None available FINDINGS: Appearance of possible inferior vena cava filter suggested on the tree scout views. Motion artifact significantly limits the evaluation. No large central or hilar saddle pulmonary embolism. Interlobar to subsegmental branches are not well evaluated. Thoracic aorta appears within limits. Three-vessel coronary calcification appears moderate. No pericardial or pleural effusion. Images of the upper abdomen appear unremarkable. [place] artifact from left shoulder replacement and anterior cervical disc fusion. The central airways appear patent. Motion artifact and low appearing lung volumes. Bibasilar and dependent atelectasis. No focal consolidation. CT/CTA Chest W/WO Contrast IMPRESSION: Motion artifact significantly limits the evaluation. No large central or hilar saddle pulmonary embolism. Interlobar to subsegmental branches are not well evaluated. The central airways appear patent. Motion artifact and low appearing lung volumes. Bibasilar and dependent atelectasis. No focal consolidation. Three-vessel coronary calcification appears moderate. Reading Location: [facility] CC: Kaushik Brown DO; No Primary Care Physician ~ Point Of Care Specialist: Signed [facility]07-06-2023 Hospital Discharge instructions Additional Instructions Please follow-up with your doctor in 3 to 5 days return for any worsening of symptoms.[facility] Work Phone: 1([phone]) 109-836401-30-2023 Discharge summary Author Tello Lynch [facility] June 02, 2022 12:17pm Note Date/Time June 02, 2022 1 2:00pm [place] [address] Discharge Summary Signed Patient: CHARLI PORRAS MR#: [id number] : 1950 Acct:[id number] Age/Sex: 72 / M ADM Date: Loc: 2014-05 Date of Service: 3 Clinician: Tello Lynch MD cc: Ericka Cassidy DS: Providers Date of admission: 05/31/22 18:18 Primary care physician: Ericka Cassidy DS: Summary Hospital course: This is a 72-year-old white male with significant past medical history of morbidobesity, diabetes mellitus type 2, dementia, hyperlipidemia, hypertension and DVT who presented to [facility] with complaints of altered mental status. Patient was admitted evaluated. He was found to suffer acute metabolic encephalopathy secondary to a urinary tract infection. Patient was placed on antibiotics. His mental status returned to baseline. The day of discharge she was hemodynamically stable and tolerating orals. Patient was discharged in stable condition. Over 35 minutes was spent on the discharge. Status at Discharge Overall status at discharge: Patient is progressing back to baseline Time Spent with Patient Total time spent providing and/or coordinating discharge services: Greater than 30 minutes Exam Vital signs: Temp Pulse Resp BP Pulse Ox 97.6 F L 92 88 H 125/64 90 06/02/22 07:55 06/02/22 08:00 06/02/22 08:00 06/02/22 07:55 06/02/22 08:00 Narrative: General: Morbidly obese, older, male, no acute distress, cooperative Skin: warm, dry, intact, normal color, normal turgor HEENT: normocephalic, atraumatic, EOMI, PERRLA, mucous membranes moist Respiratory: Clear to auscultation bilaterally without wheezing, rales or rhonchi Cardiovascular: Regular rate and rhythm without murmur, rub or gallop, S1, S2 present Abdominal: Soft, nontender, nondistended, with normoactive bowel sounds Extremities: Full ROM, pulses intact, normal capillary refill, space without edema Neurologic: alert and oriented person, place and time. CN 2-10 grossly intact, normal muscle strength, normal tone, moving all extremities Psychiatric: Normal affect, normal thought process, cooperative DS: Data Labs on day of discharge: Labs from last 24 hours 06/02/22 06/02/22 06/02/22 05:49 05:29 05:29 WBC RBC Hgb Hct MCV MCH MCHC RDW Plt Count MPV Neut % (Auto) Lymph % (Auto) [place] % (Auto) Eos % (Auto) Baso % (Auto) Neut # (Auto) Lymph # (Auto) [place] # (Auto) Eos # (Auto) Baso # (Auto) PT INR (Therapeutic) 1.41 L Anticoagulation Therapy Sodium 135 Potassium 3.9 Chloride 100 Carbon Dioxide 26 Anion Gap 9.0 BUN 13 Creatinine 1.3 Est GFR ( Amer) 65 Est GFR (Non-Af Amer) 54 Glucose 153 H POC Glucose 158 Hemoglobin A1c Estim Average Glucose Calcium 8.8 Magnesium 1.6 06/02/22 06/01/22 06/01/22 05:29 19:47 15:52 WBC 8.2 RBC 4.53 Hgb 12.7 L Hct 39.0 L MCV 86.1 MCH 28.2 MCHC 32.7 L RDW 14.8 H Plt Count 167 MPV 6.6 L Neut % (Auto) 73.1 Lymph % (Auto) 16.2 L [place] % (Auto) 9.4 H Eos % (Auto) 0.9 Baso % (Auto) 0.4 Neut # (Auto) 6.0 Lymph # (Auto) 1.3 [place] # (Auto) 0.8 H Eos # (Auto) 0.1 Baso # (Auto) 0.0 PT INR (Therapeutic) Anticoagulation Therapy Sodium Potassium Chloride Carbon Dioxide Anion Gap BUN Creatinine Est GFR ( Amer) Est GFR (Non-Af Amer) Glucose POC Glucose 161 206 Hemoglobin A1c Estim Average Glucose Calcium Magnesium 06/01/22 06/01/22 11:10 05:44 WBC RBC Hgb Hct MCV MCH MCHC RDW Plt Count MPV Neut % (Auto) Lymph % (Auto) [place] % (Auto) Eos % (Auto) Baso % (Auto) Neut # (Auto) Lymph # (Auto) [place] # (Auto) Eos # (Auto) Baso # (Auto) PT INR (Therapeutic) Anticoagulation Therapy Sodium Potassium Chloride Carbon Dioxide Anion Gap BUN Creatinine Est GFR ( Amer) Est GFR (Non-Af Amer) Glucose POC Glucose 232 Hemoglobin A1c 9.8 H Estim Average Glucose 235 Calcium Magnesium Preliminary micro results at discharge 05/31/22 15:25 Blood Culture - Preliminary Blood - Antecubital,Right No Growth First Day 05/31/22 15:35 Blood Culture - Preliminary Blood - Hand,Right No Growth First Day Discharge Plan Follow up Plan Referrals/Follow-up with: Ericka Cassidy [Primary Care Provider] - Patient Disposition: Home Plan of Care Diagnosis/Plan of care 1:: UTI Goal 1:: antibiotics Instructions 1:: follow up with primary care physician Discharge Instructions Activity: increase activity as tolerated Prescriptions and Medication Reconciliation: New ciprofloxacin HCl 500 mg tablet 500 mg PO BID Qty: 6 0RF Continued atorvastatin 10 MG tablet 10 mg PO HS Warfarin Sodium Sliding Scale [Coumadin Sliding Scale] 1 TAB Tablet 5 mg PO DAILY allopurinol [Zyloprim] 100 MG tablet 100 mg PO DAILY gabapentin [Neurontin] 800 MG tablet 800 mg PO TID glipizide [Glucotrol] 5 MG tablet 10 mg PO DAILY duloxetine 60 MG capsule,delayed release(DR/EC) 60 mg PO DAILY pramipexole 0.125 MG tablet 0.125 mg PO HS doxazosin 2 MG tablet 2 mg PO BID quetiapine 50 mg Tablet 50 mg PO QDAY tizanidine 4 mg Capsule 4 mg PO DAILY PRN insulin glargine [Lantus Solostar U-100 Insulin] 100 unit/mL (3 mL) Insulin Pen 75 unit SQ QHS donepezil 5 mg Tablet 5 mg PO QDAY Qty: 30 0RF polyethylene glycol 3350 17 gram Powder In Packet 17 g PO QDAYPRN PRN (Reason: Constipation) Qty: 30 0RF clonidine 0.2 mg/24 hr Patch Weekly 1 ea TD Bed[place]@1000 Qty: 4 0RF quetiapine 200 mg tablet extended release 24 hr 1 tab PO HS Label Comments: TAKE 1 TABLET BY MOUTH AT BEDTIME lorazepam 1 mg tablet 1 tab DAILY PRN Label Comments: TAKE 1 TABLET BY MOUTH EVERY DAY NEEDED as directed Discharge Orders Discharge Orders: Discharge Order (Routine); Ordered 06/02/22 Ordered By: Tello Lynch Billing Billing Category Hospital Discharge: 65750 DC2 > 30 min Documented By: Tello Lynch MD 06/02/22 1056 Signed By: <Electronically signed by Tello Lynch MD> 06/02/22 1117 [facility] Work Phone: 1(637) 805-854201-30-2023 Progress note Author Barbara Gipson [facility] June 02, 2022 11:33am Note Date/Time June 02, 2022 1 1:33am [place] [address] Wound Care Progress Note Signed Patient: CHARLI PORRAS MR#: [id number] : 1950 Acct:[id number] Age/Sex: 72 / M ADM Date: Loc: 2T 2014-05 Date of Service: 3 Clinician: Barbara Gipson RN cc: Wound Care Progress Note - Wound Care Date of Admission: 05/31/22 18:18 Reason for Consult: buttocks Significant History: Medical history: Reports anemia, arthritis, dementia, diabetes, hypertension andrenal disease Additional Medical History: bundle branch block / dvt / [place] filter Surgical history: Reports adenoidectomy, cholecystectomy, knee replacement and tonsillectomy Additional Surgical History: left shoulder; cervical spine; temporary trach Psychiatric history: Reports no psych history Social History service: Yes Smoking Status: Never smoker Alcohol Use: No Substance Type: None per chart Incision/Wound Intervention: Incision/Wound Intervention Incision/Wound Start: 05/31/22 18:53 Text: Status: Active Freq: QSHIFT Protocol: Activity Type Activity Date Activity User E-sign Co-sign Detail Recorded Client Recorded Date Recorded By Document 06/02/22 10:21 [email or web address] [id number] 06/02/22 10:24 [email or web address] 06/02/22 10:21 Incision/Wound/Dressing Assessment & Care [ ] Re-assess and measure wounds every Thursday [ ] [Wound Protocol: S.INSPECTOR SHELLS] Left Lateral Foot -Wound Type diabetic wound -Drainage Amount None -Odor No Odor -Wound Bed Appearance Eschar -Comment dry, stable eschar -Length (cm) 1.5 -Width (cm) 2.1 -Margin Description Well Defined -Surrounding Tissue Appearance Intact -Surrounding Tissue Temperature Warm -Dressing Status Open to Air Left Lateral Heel -Wound Type diabetic wound -Drainage Amount None -Odor No Odor -Wound Bed Appearance Eschar -Comment dry, stable eschar -Length (cm) 1.0 -Width (cm) 1.5 -Margin Description Well Defined -Surrounding Tissue Appearance Intact -Surrounding Tissue Temperature Warm -Dressing Status Open to Air Bilateral Buttock -Wound Type Abrasion -Drainage Amount Scant -Drainage Description Serous -Odor No Odor -Wound Bed Appearance Barnum,Peeling Skin -Length (cm) 12.0 -Width (cm) 12.0 -Depth (cm) 0.1 -Margin Description Indistinct -Surrounding Tissue Appearance Intact -Surrounding Tissue Temperature Warm -Chronic Wound Yes -Dressing Status Open to Air -Irrigant Solution Soap and Water -Comment cavilon advanced skin protectant applied Current Interventions & Plan: Patient resting in bed in semifowlers position. EHOB mattress overlay in place. Alert. BUE intact. Chest and abdomen intact. Groins intact; scrotum reddened. RLE intact; heel intact. Dry, stable eschar assessed and measured on left lateral heel and left lateral foot. Per the patient, he probably got the wounds from his foot rubbing against his shoes; denies loss of sensation but states he is a diabetic. Per the patient, he follows with a helicopter crew chief in [place]; does not recallhis name. I educated the patient to wear white socks and look at his feet with a mirror after bathing; per the patient, his checks his feet for him. Patient turned onto his right side with staff assistance. Dressings removed. Friction wound on bilateral buttocks; wound cleansed, assessed and measured; cavilon advanced skin protectant applied. Per the patient, his applies a prescription cream; does not know the name of the cream. Back intact. Patient boosted up in bed. Bed alarm on; call light and tray table within reach. Plan: Potential discharge per patient Cavilon advanced skin protectant will protect buttocks from further friction injury for up to 7 days No dressing needed for left foot wounds; patient instructed to follow up with helicopter crew chief outpatient Documented By: Barbara Gipson RN 06/02/22 1024 Signed By: <Electronically signed by Barbara Gipson RN> 06/02/22 1033 [facility] Work Phone: 1(757) 800-163501-28-2023 History and physical note Author Naresh Sainz [facility] May 31, 2022 7:30pm Note Date/Time May 31, 2022 7 :25pm [place] [id number] History & Physical Signed Patient: CHARLI PORRAS MR#: [id number] : 1950 Acct:[id number] Age/Sex: 72 / M ADM Date: Loc: ER Date of Service: 3 Clinician: Naresh Sainz DO cc: Ericka Cassidy History of Present Illness History of Present Illness Chief complaint: Confusion HPI: This is a 72-year-old male with a past medical history of dementia, gout, hyperlipidemia, neuropathy, type 2 diabetes, restless legs and history of DVT that presents to the ED with complaints of confusion. The patient is only able to tell me that he has had a cough and dyspnea on exertion for the past week or so. He also reports some dizziness and fatigue. According to the medical record, the reports that he is also had some increased confusion over the last few days but she is not at bedside at this time. The patient denies any shortness of breath, chest pain, fevers, chills, headache, nausea, vomiting, diarrhea or constipation. In the ED, urinalysis is positive for UTI. Patient will be admitted to the floor for further care at this time. Review of Systems Review of Systems All systems: reviewed and no additional remarkable complaints except as stated PMFSH Past Medical/Surgical History Attestation statement: The following information was validated with the patient. Medical history: Reports anemia, arthritis, dementia, diabetes, hypertension andrenal disease Additional Medical History: bundle branch block / dvt / [place] filter Surgical history: Reports adenoidectomy, cholecystectomy, knee replacement and tonsillectomy Additional Surgical History: left shoulder; cervical spine; temporary trach Psychiatric history: Reports no psych history Social History service: Yes Smoking Status: Never smoker Alcohol Use: No Substance Type: None Meds Home Medications (Patient Hx and Rx) Medication Instructions Recorded Confirmed Last Taken Type allopurinol 100 mg tablet 100 mg PO DAILY 11/24/17 05/31/22 04/18/22 History (Zyloprim) duloxetine 60 mg capsule,delayed 60 mg PO DAILY 11/24/17 05/31/22 04/18/22 History release gabapentin 800 mg tablet 800 mg PO TID 11/24/17 05/31/22 04/18/22 History (Neurontin) glipizide 5 mg tablet (Glucotrol) 10 mg PO DAILY 11/24/17 05/31/22 04/18/22 History doxazosin 2 mg tablet 2 mg PO BID 05/17/18 05/31/22 04/18/22 History pramipexole 0.125 mg tablet 0.125 mg PO HS 05/17/18 05/31/22 04/18/22 History Warfarin Sodium Sliding Scale 5 mg PO DAILY 10/23/19 05/31/22 04/18/22 History [Coumadin Sliding Scale] atorvastatin 10 mg tablet 10 mg PO HS 10/23/19 05/31/22 04/18/22 History insulin glargine 100 unit/mL (3 75 unit SQ QHS 04/19/22 05/31/22 Unknown History mL) subcutaneous pen (Lantus Solostar U-100 Insulin) quetiapine 50 mg tablet 50 mg PO QDAY 04/19/22 05/31/2222 History tizanidine 4 mg capsule 4 mg PO DAILY PRN 04/19/22 05/31/22 04/18/22 History clonidine 0.2 mg/24 hr weekly 1 ea TD Bedolla@1000 #4 ea 04/23/22 05/31/22 Unknown Rx transdermal patch donepezil 5 mg tablet 5 mg PO QDAY #30 tabs 04/23/22 05/31/22 Unknown Rx polyethylene glycol 3350 17 gram 17 g PO QDAYPRN PRN Constipation 04/23/22 05/31/22 Unknown Rx oral powder packet #30 ea Allergies Allergy/AdvReac Type Severity Reaction Status Date / Time ibuprofen Allergy Verified 05/31/22 14:07 Physical Exam Physical Exam Physical Exam: General: Morbidly obese, older, male, no acute distress, cooperative Skin: warm, dry, intact, normal color, normal turgor HEENT: normocephalic, atraumatic, EOMI, PERRLA, mucous membranes moist Respiratory: Clear to auscultation bilaterally without wheezing, rales or rhonchi Cardiovascular: Regular rate and rhythm without murmur, rub or gallop, S1, S2 present Abdominal: Soft, nontender, nondistended, with normoactive bowel sounds Extremities: Full ROM, pulses intact, normal capillary refill, space without edema Neurologic: alert and oriented person, place and time but unable to give me any additional details or answer questions. CN 2-10 grossly intact, normal muscle strength, normal tone, moving all extremities Psychiatric: Normal affect, normal thought process, cooperative, poor historian General Last Vital Signs: Temp Pulse Resp BP Pulse Ox 96.4 F L 74 18 138/78 95 05/31/22 14:05 05/31/22 18:06 05/31/22 18:06 05/31/22 18:06 05/31/22 18:06 I&O: Intake & Output 05/29/22 05/30/22 05/31/22 06/01/22 06:59 06:59 06:59 06:59 Weight 138.346 kg Results Labs Result diagrams: 05/31/22 14:30 05/31/22 14:30 Abnormal lab results 05/31/22 05/31/22 05/31/22 Range/Units 14:30 14:30 14:30 RBC 4.36 L (4.50-5.50) M/uL Hgb 12.6 L (13.5-16.5) g/dL Hct 37.6 L (41.0-50.0) % RDW 14.7 H (10.9-14.3) % Plt Count 147 L (150-450) K/uL MPV 6.6 L (7.4-10.4) fL Lymph % (Auto) 19.9 L (24.0-44.0) % VBG pO2 62.0 H (30-50) mmHg VBG O2 Saturation 90 H (50-85) % Sodium 134 L (135-145) mEq/L Glucose 195 H (70-99) mg/dL Troponin I 0.04 H (<0.03) ng/mL Albumin 3.2 L (3.4-4.8) g/dL Albumin/Globulin Ratio 0.8 L (1.1-2.2) ratio Urine Protein (NEGATIVE) mg/dL Urine Glucose (UA) (NEGATIVE) mg/dL Urine Ketones (NEGATIVE) mg/dL Urine Occult Blood (NEGATIVE) Ur Leukocyte Esterase (NEGATIVE) 05/31/22 Range/Units 16:29 RBC (4.50-5.50) M/uL Hgb (13.5-16.5) g/dL Hct (41.0-50.0) % RDW (10.9-14.3) % Plt Count (150-450) K/uL MPV (7.4-10.4) fL Lymph % (Auto) (24.0-44.0) % VBG pO2 (30-50) mmHg VBG O2 Saturation (50-85) % Sodium (135-145) mEq/L Glucose (70-99) mg/dL Troponin I (<0.03) ng/mL Albumin (3.4-4.8) g/dL Albumin/Globulin Ratio (1.1-2.2) ratio Urine Protein 30 A (NEGATIVE) mg/dL Urine Glucose (UA) 1000 A (NEGATIVE) mg/dL Urine Ketones Trace A (NEGATIVE) mg/dL Urine Occult Blood Small A (NEGATIVE) Ur Leukocyte Esterase Moderate A (NEGATIVE) Short CBC 05/31/22 Range/Units 14:30 WBC 7.1 (4.5-11.0) K/uL Hgb 12.6 L (13.5-16.5) g/dL Hct 37.6 L (41.0-50.0) % Plt Count 147 L (150-450) K/uL BMP 05/31/22 14:30 Sodium 134 L Potassium 3.6 Chloride 99 Carbon Dioxide 25 BUN 17 Creatinine 1.2 Glucose 195 H Calcium 8.8 Cardiac Enzymes 05/31/22 Range/Units 14:30 Troponin I 0.04 H (<0.03) ng/mL Liver Function 05/31/22 Range/Units 14:30 Total Bilirubin 0.8 (0.3-1.5) mg/dL AST 22 (10-41) U/L ALT 23 (10-63) U/L Alkaline Phosphatase 72 (42-121) U/L Albumin 3.2 L (3.4-4.8) g/dL Urine 05/31/22 Range/Units 16:29 Urine Color Yellow Urine Appearance Cloudy Urine pH 6.0 (4.6-8.0) Ur Specific [place] 1.020 (1.001-1.035) Urine Protein 30 A (NEGATIVE) mg/dL Urine Glucose (UA) 1000 A (NEGATIVE) mg/dL Assessment and Plan (1) Acute UTI: Code(s): N39.0 - Urinary tract infection, site not specified Status: Acute (2) Encephalopathy: Code(s): G93.40 - Encephalopathy, unspecified Status: Acute (3) Morbid obesity: Code(s): E66.01 - Morbid (severe) obesity due to excess calories Status: Acute (4) Benign hypertension: Code(s): I10 - Essential (primary) hypertension (5) Chronic anticoagulation: Code(s): 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 (6) Diabetes mellitus: Qualifiers: Diabetes mellitus type: type 2 Diabetes mellitus residential insulin use:with residential use Diabetes mellitus complication status: with neurologic complications Diabetes mellitus complication detail: with polyneuropathy Qualified Code(s): E11.42 - Type 2 diabetes mellitus with diabetic polyneuropathy; Z79.4 - custodial (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 of insulin Code(s): E11.9 - Type 2 diabetes mellitus without complications (7) History of DVT (deep vein thrombosis): Code(s): Z86.718 - Personal history of other venous thrombosis and embolism (8) Hyperlipidemia: Qualifiers: Hyperlipidemia type: mixed hyperlipidemia Qualified Code(s): E78.2 - Mixed hyperlipidemia Code(s): E78.5 - Hyperlipidemia, unspecified (9) Neuropathy: Code(s): G62.9 - Polyneuropathy, unspecified (10) Dementia: Qualifiers: Dementia type: vascular dementia Dementia severity: moderate Dementia behavioral or psychological symptom: without behavioral, psychotic, or mood disturbance or anxiety Qualified Code(s): F01.B0 - Vascular dementia, moderate,without behavioral disturbance, psychotic disturbance, mood disturbance, and anxiety Code(s): F03.90 - Unspecified dementia, unspecified severity, without behavioral disturbance, psychotic disturbance, mood disturbance, and anxiety Plan Admit to general medical floor Start IV Rocephin, await urine culture Patient appears to be at baseline for mentation I did discuss with nursing since is not at bedside Reconcile home med Check INR Labs in the a.m. Consulted PT/OT Code Status: Full code DVT Prophylaxis: Warfarin Discharge planning: Pending progress Communication with family/POA: No family at bedside today Sepsis Focused Exam Vital signs: Vital Signs Temp Pulse Resp BP Pulse Ox 05/31/22 18:06 74 18 138/78 95 05/31/22 17:36 72 16 138/82 93 05/31/22 16:59 77 16 142/79 H 95 05/31/22 16:06 74 16 143/83 H 95 05/31/22 15:30 76 16 112/54 L 96 05/31/22 14:38 78 20 135/60 93 05/31/22 14:05 96.4 F L 79 20 140/56 L 93 Billing Billing Category Inpatient Initial: 99145 IP3 High Documented By: Naresh Sainz DO 05/31/22 18 18 Signed By: <Electronically signed by Naresh Sainz DO> 05/31/22 1830 [facility] Work Phone: 1(717) 551-346712-21-2022 Progress note Author Armen Carl [facility] April 23, 2022 7:53am Note Date/Time April 23, 2022 7:53am [address] [address] Progress Note Signed Patient: CHARLI PORRAS MR#: [id number] : 1950 Acct:[id number] Age/Sex: 71 / M ADM Date: Loc: 2 2004-05 Date of Service: 2 Clinician: Armen Carl MD cc: Progress Note Note: Allergies Allergy/AdvReac Type Severity Reaction Status Date / Time No Known Allergies Allergy Verified 04/19/22 00:38 Home Medications Medication Instructions Recorded Confirmed Last Taken Type allopurinol 100 mg tablet 100 mg PO DAILY 11/24/17 04/19/22 04/18/22 History (Zyloprim) duloxetine 60 mg capsule,delayed 60 mg PO DAILY 11/24/17 04/19/22 04/18/22 History release gabapentin 800 mg tablet 800 mg PO TID 11/24/17 04/19/22 04/18/22 History (Neurontin) glipizide 5 mg tablet (Glucotrol) 10 mg PO DAILY 11/24/17 04/19/22 04/18/22 History doxazosin 2 mg tablet 2 mg PO BID 05/17/18 04/19/22 04/18/22 History pramipexole 0.125 mg tablet 0.125 mg PO HS 05/17/18 04/19/22 04/18/22 History Warfarin Sodium Sliding Scale 5 mg PO DAILY 10/23/19 04/19/22 04/18/22 History [Coumadin Sliding Scale] atorvastatin 10 mg tablet 10 mg PO HS 10/23/19 04/19/22 04/18/22 History insulin glargine 100 unit/mL (3 75 unit SQ QHS 04/19/22 04/19/22 Unknown History mL) subcutaneous pen (Lantus Solostar U-100 Insulin) quetiapine 50 mg tablet 50 mg PO QDAY 04/19/22 04/19/22 04/18/22 History tizanidine 4 mg capsule 4 mg PO DAILY PRN 04/19/22 04/19/22 04/18/22 History tramadol 50 mg tablet 50 mg PO Q6H PRN 04/19/22 04/19/22 Unknown History Current Medications Generic Name Dose Route Start Last Admin Trade Name Freq PRN Reason Stop Dose Admin Acetaminophen 650 mg 04/19/22 05:51 04/20/22 21:28 Acetaminophen 325 Mg Tablet PO 650 mg Q6HPRN PRN Administration Mild Pain 1-3 or Temp >101 Allopurinol 100 mg 04/19/22 10:00 04/22/22 08:36 Allopurinol 100 Mg Tablet PO 100 mg DAILY PRAVEEN Administration Atorvastatin Calcium 10 mg 04/19/22 22:00 04/22/22 21:25 Atorvastatin 10 Mg Tablet PO 10 mg HS PRAVEEN Administration Clonidine HCl 1 each 04/20/22 10:00 04/20/22 08:46 Clonidine 0.2 Mg Patch TD 1 each Bedolla@1000 PRAVEEN Administration Dextrose 25 gm 04/20/22 11:47 Dextrose 50% Qi 25 Gm/50 Ml Syringe IV PRN PRN Blood Sugar - Low Dextrose 24 gm 04/20/22 11:47 Dextrose/Dextran/Maltose Gel 24 Gm Gel..Gram. PO PRN PRN Blood Sugar - Low Donepezil HCl 5 mg 04/22/22 11:30 04/22/22 13:00 Donepezil 5 Mg Tablet PO 5 mg QDAY PRAVEEN Administration Doxazosin Mesylate 2 mg 04/19/22 10:00 04/22/22 21:24 Doxazosin Mesylate 2 Mg Tablet PO 2 mg BID PRAVEEN Administration Duloxetine HCl 60 mg 04/19/22 10:00 04/22/22 08:31 Duloxetine Hcl 60 Mg Capsule PO 60 mg DAILY PRAVEEN Administration Gabapentin 800 mg 04/20/22 08:00 04/22/22 21:24 Gabapentin 400 Mg Capsule PO 800 mg TID PRAVEEN Administration Glipizide 10 mg 04/21/22 12:45 04/22/22 08:33 Glipizide 10 Mg Tablet PO 10 mg DAILY PRAVEEN Administration Insulin Aspart 0 unit 04/19/22 17:00 04/22/22 21:25 Insulin Aspart 100 Unit/Ml Insuln.Pen SQ 12 unit ACHS PRAVEEN Administration Protocol Insulin Glargine 35 unit 04/22/22 10:00 04/22/22 21:25 Insulin Glargine 100 Unit/Ml SQ 35 unit BID PRAVEEN Administration Ondansetron HCl 4 mg 04/19/22 05:51 04/20/22 21:28 Ondansetron Hcl/Pf 4 Mg/2 Ml Vial IVP 4 mg Q6HPRN PRN Administration Nausea And Vomiting Polyethylene Glycol 17 gm 04/19/22 05:51 Polyethylene Glycol 3350 17 Gm Packet PO QDAYPRN PRN Constipation Polyethylene Glycol 17 gm 04/22/22 10:00 04/22/22 08:35 Polyethylene Glycol 3350 17 Gm Packet PO 17 gm QDAY PRAVEEN Administration Pramipexole Dihydrochloride 0.125 mg 04/19/22 22:00 04/22/22 21:25 Pramipexole Dihydrochloride 0.125 Mg Tablet PO 0.125 mg HS PRAVEEN Administration Quetiapine Fumarate 50 mg 04/20/22 10:00 04/22/22 08:32 Quetiapine Fumarate 25 Mg Tablet PO 50 mg QDAY PRAVEEN Administration Senna/Docusate Sodium 1 tab 04/22/22 10:00 04/22/22 21:25 Senna/Docusate Sodium Tablet PO 1 tab BID PRAVEEN Administration Tramadol HCl 50 mg 04/19/22 17:05 04/22/22 17:23 Tramadol Hcl 50 Mg Tablet PO 50 mg Q6HPRN PRN Administration Severe Pain 8-10 Warfarin Sodium 1 tab 04/20/22 16:00 04/22/22 13:38 Warfarin Sodium Sliding Scale PO Not Given QDAYCOUMADIN [facility] Vital Signs Temperature 98.9 F 04/23/22 00:00 Temperature Source Oral 04/23/22 00:00 Pulse Rate 77 04/23/22 00:00 Pulse Rhythm 04/23/22 00:00 Respiratory Rate 17 04/23/22 00:00 Blood Pressure 142/53 H 04/23/22 00:00 Blood Pressure Mean 82 04/23/22 00:00 Blood Pressure Position Semi-fowlers 04/22/22 15:40 SpO2% 96 04/23/22 00:00 Current Activity Awake 04/23/22 00:00 O2 L/m 2 04/22/22 08:30 O2 per 04/23/22 00:00 Intake & Output 04/22/22 04/22/22 04/23/22 06:59 18:59 06:59 Intake Total 240 / 1690 780 / 1140 360 / 1140 Output Total 700 / 1200 950 / 1350 400 / 1350 Balance -460 / 490 -170 / -210 -40 / -210 Intake: Oral 240 / 590 780 / 1140 360 / 1140 Output: Urine Amount 700 / 1200 950 / 1350 400 / 1350 Other: Meal Lunch Dinner Percent Meal Consumed 25% 50% Void x 3 450 Incontinent x 1 BM x 2 1 0 Lab Results - Last 24 Hours 04/22/22 04/22/22 04/22/22 07:07 08:48 08:48 WBC 6.9 RBC 4.49 L Hgb 13.1 L Hct 39.4 L MCV 87.7 MCH 29.1 MCHC 33.2 RDW 13.5 Plt Count 137 L MPV 6.5 L Neut % (Auto) 69.3 Lymph % (Auto) 15.1 L [place] % (Auto) 11.9 H Eos % (Auto) 2.8 Baso % (Auto) 0.9 Neut # (Auto) 4.8 Lymph # (Auto) 1.1 [place] # (Auto) 0.8 H Eos # (Auto) 0.2 Baso # (Auto) 0.1 PT INR (Therapeutic) 2.74 Anticoagulation Therapy Sodium Potassium Chloride Carbon Dioxide Anion Gap BUN Creatinine Est GFR ( Amer) Est GFR (Non-Af Amer) Glucose POC Glucose Lactic Acid Calcium Ammonia 16 Triglycerides Cholesterol LDL Cholesterol HDL Cholesterol LDL/HDL Ratio Vitamin B12 Folate TSH 04/22/22 04/22/22 04/22/22 08:48 10:14 10:14 WBC RBC Hgb Hct MCV MCH MCHC RDW Plt Count MPV Neut % (Auto) Lymph % (Auto) [place] % (Auto) Eos % (Auto) Baso % (Auto) Neut # (Auto) Lymph # (Auto) [place] # (Auto) Eos # (Auto) Baso # (Auto) PT INR (Therapeutic) Anticoagulation Therapy Sodium 132 L Potassium 3.3 L Chloride 102 Carbon Dioxide 20 L Anion Gap 10.0 BUN 18 Creatinine 1.2 Est GFR ( Amer) 72 Est GFR (Non-Af Amer) 60 Glucose 255 H POC Glucose Lactic Acid 1.1 Calcium 8.4 L Ammonia Triglycerides 189 Cholesterol 99 L LDL Cholesterol 46 HDL Cholesterol 23 L LDL/HDL Ratio 2.0 Vitamin B12 787 Folate > 24.8 TSH 3.00 04/22/22 04/22/22 04/22/22 10:51 15:44 20:57 WBC RBC Hgb Hct MCV MCH MCHC RDW Plt Count MPV Neut % (Auto) Lymph % (Auto) [place] % (Auto) Eos % (Auto) Baso % (Auto) Neut # (Auto) Lymph # (Auto) [place] # (Auto) Eos # (Auto) Baso # (Auto) PT INR (Therapeutic) Anticoagulation Therapy Sodium Potassium Chloride Carbon Dioxide Anion Gap BUN Creatinine Est GFR ( Amer) Est GFR (Non-Af Amer) Glucose POC Glucose 292 171 314 Lactic Acid Calcium Ammonia Triglycerides Cholesterol LDL Cholesterol HDL Cholesterol LDL/HDL Ratio Vitamin B12 Folate TSH 04/23/22 04/23/22 04/23/22 05:23 05:23 06:07 WBC 7.0 RBC 4.51 Hgb 13.3 L Hct 39.7 L MCV 88.0 MCH 29.4 MCHC 33.5 RDW 13.5 Plt Count 163 MPV 7.6 Neut % (Auto) 66.0 Lymph % (Auto) 18.2 L [place] % (Auto) 10.1 H Eos % (Auto) 4.7 H Baso % (Auto) 1.0 Neut # (Auto) 4.6 Lymph # (Auto) 1.3 [place] # (Auto) 0.7 Eos # (Auto) 0.3 Baso # (Auto) 0.1 PT INR (Therapeutic) 2.25 Anticoagulation Therapy Sodium Potassium Chloride Carbon Dioxide Anion Gap BUN Creatinine Est GFR ( Amer) Est GFR (Non-Af Amer) Glucose POC Glucose 360 Lactic Acid Calcium Ammonia Triglycerides Cholesterol LDL Cholesterol HDL Cholesterol LDL/HDL Ratio Vitamin B12 Folate TSH Microbiology 04/22/22 06:41 Urine Culture - Pending Urine,Clean Catch C/C: Candiduria Denies fever, or chills Denies SOB, abdomen pain, dysuria Afebrile Review of Systems General General: Absent chills, fatigue or fever(s) EENT Eyes: Absent change in vision or pain Ears: Absent ear pain Nose, mouth and throat: Absent hoarseness or sore throat Cardiovascular Cardiovascular: Absent chest pain, dyspnea on exertion, orthopnea or palpitations Respiratory Respiratory: Absent cough, dyspnea, hemoptysis or sputum production Gastrointestinal Gastrointestinal: Absent abdominal pain, change in bowel habits, hematochezia, melena, nausea or vomiting Musculoskeletal Musculoskeletal: Absent back pain, joint swelling or joint pain Integumentary Integumentary: Absent lesions or rash Neurological Neurological: Absent dizziness, headache(s) or memory loss Hematologic/Lymphatic Hematologic/Lymphatic pediatric: Absent easy bleeding or easy bruising hysical Exam General General: Well Developed, Well Nourished and No Acute Distress Skin Exam Skin exam: Present Warm, Dry, Intact, Normal Color, Normal Turgor and Barnum HEENT Exam Head: Present Normocephalic and Atraumatic Eye: Present EOMI and PERRLA ENT: Present Mucous Membranes Normal Neck Exam Neck exam: Present Supple and Full ROM Respiratory Exam Respiratory exam: Present CTA Bilaterally Cardiovascular Exam Cardiovascular exam: Present RRR Abdominal Exam GI/Abdominal exam: Present Soft and Normoactive Bowel Sounds Extremities Exam Extremities exam: Present Full ROM, Pulses Intact and Edema Neurological Exam Neurological exam: Present Alert, Oriented X3, Moving All Extremities and NormalSpeech Diagnostic results CT scan - abdomen: report reviewed and image reviewed CT scan - pelvis: report reviewed and image reviewed Additional Comments: CT Abdomen and Pelvis without contrast: 1. Moderate stool throughout the colon and rectum suggesting constipation. ? ? Assessment and Plan Assessment and plan (1) Candiduria ( C glabrata ) :no UTI ( pt mental status improved on rocephin ,while cx grew Callie ) ?Code(s): B37.49 - Other urogenital candidiasis ?Status:?Acute ?Plan: Rocephin stopped Follow up urine cx pending (2) Morbid obesity: ?Code(s): E66.01 - Morbid (severe) obesity due to excess calories ?Status:?Acute Time Spent with Patient Total time spent is greater than 50% in coordination of care (as documented) at patient's floor/unit and/or counseling patient: Documented By: Armen Carl MD 04/23/22 0650 Signed By: <Electronically signed by Armen Carl MD> 04/23/22 0653 [facility] Work Phone: 1(197) 384-812612-20-2022 Consult note Author Mary Beth Landaverde [facility] April 22, 2022 12:21pm Note Date/Time April 22, 2022 10:13am [place] [id number] Consult Note Signed with Sabrina Patient: CHARLI PORRAS MR#: [id number] : 1950 Acct:[id number] Age/Sex: 71 / M ADM Date: Loc: 3026-1 Date of Service: 12/20/2 2 Clinician: Mary Beth Landaverde NP cc: Ericka Cassidy ADDENDUM Extensive discussion with the patient's Ariadna who called my office personally to request a work-up for autoimmune encephalitis. Discussed with Ariadna the patient's confusion which has been present 08/2020, Patient was seen initially outpatient by Dr. Enriquez was diagnosed with MCI/mild dementia at that time scored a 20 out of 30 on a MoCA assessment. Patient was started on Ioaagqm44 mg daily. Patient failed to follow-up outpatient, per patient's Ariadna, the patient saw no improvement with Aricept so this medication was discontinued. Extensive teaching given to Ariadna about Aricept as it does not stop or reverse memory loss it slows down the memory decline only. Patient's Ariadna requesting to restart this medication. Patient has no history of cancer of any sort, discussed with her the work-up for autoimmune encephalitis which includes a lumbar puncture, at this time due to patient's history of mild dementia with aUTI and admission, patient's behavioral changes that occur at bedtime likely secondary to patient's worsening memory, patient has been following with psych counselor outpatient who started the patient on the Seroquel 50 mg daily. Patient has an appoint with a neurologist established at [facility] in June, patient's instructed to keep this appointment and also notify the neurologist patient has history of mild dementia. All questions answered, discussed the work-up from a neurological standpoint, at this time due to patient's confusion which has resolved after antibiotic usage, lumbar puncture will not be ordered, patient's is agreeable to this, extensive dementia andmild cognitive impairment teaching given to the patient's . All questions answered completely. Addendum Documented By: Mary Beth Landaverde 04/22/221120 Addendum Signed By: <Electronically signed by Mary Beth Landaverde > 04/22/22 112 ADDENDUM -reviewed EEG and noted unremarkable Addendum Documented By: Mary Beth Landaverde 04/22/22930 Addendum Signed By: <Electronically signed by Mary Beth Landaverde > 04/22/22930 History of Present Illness Consult date: 04/22/22 Requesting physician: Judy Boo Chief complaint: AMS History of present illness: 71-year-old white male presented to [facility] 04-19-2022 for acute onset of weakness/fever/confusion. The patient has past medical history of obesity, type2 diabetes, hypertension, CKD, history of DVT on oral anticoagulants, MCI and neuropathy. The patient has history of following in the [facility] for mild cognitive impairment last seen in 2020 and did not follow back up. Patient's blood pressure admission was 116/84, heart rate of 95, no leukocytosis noted on admission, sodium 132, bun 21/creatinine 1.4, glucose 2063, UA concerning for UTI, infectious disease was consulted at that time, chest x-ray unremarkable, CT head unremarkable per report, CT of abdomen/pelvis showing moderate stool throughout the colon otherwise unremarkable. The patientwas admitted and started on IV antibiotics and had an episode of confusion during the admission. Patient can recall and has good recollection of the event, reported that when he woke up at 3 AM in the morning that he thought he was athis daughter's house and yelled out for his [facility] his daughter had hired the nurse, patient stated he understood that he was confused at that time, denied any other neurological issues but did report an increase in his baseline tremors which she has. Today at bedside patient is awake, alert, and oriented x4, denies any focal deficits, paresthesias, vision changes headache etc. Neurology was consulted for altered mental status. Review of Systems Review of Systems All systems: reviewed and no additional remarkable complaints except as stated General General: Present as per [facility] Past Medical/Surgical History Attestation statement: The following information was validated with the patient. Medical history: Reports anemia, arthritis, diabetes, hypertension and renal disease Additional Medical History: bundle branch block / dvt / [place] Surgical history: Reports adenoidectomy, cholecystectomy, knee replacement and tonsillectomy Additional Surgical History: left shoulder; cervical spine; temporary trach Psychiatric history: Reports no psych history Family History Family history: Reports no significant family history Social History service: Yes Smoking Status: Never smoker Alcohol Use: No Substance Type: None Meds Home Medications (Patient Hx and Rx) Medication Instructions Recorded Confirmed Last Taken Type allopurinol 100 mg tablet 100 mg PO DAILY 11/24/17 04/19/22 04/18/22 History (Zyloprim) duloxetine 60 mg capsule,delayed 60 mg PO DAILY 11/24/17 04/19/22 04/18/22 History release gabapentin 800 mg tablet 800 mg PO TID 11/24/17 04/19/22 04/18/22 History (Neurontin) glipizide 5 mg tablet (Glucotrol) 10 mg PO DAILY 11/24/17 04/19/22 04/18/22 History doxazosin 2 mg tablet 2 mg PO BID 05/17/18 04/19/22 04/18/22 History pramipexole 0.125 mg tablet 0.125 mg PO HS 05/17/18 04/19/22 04/18/22 History Warfarin Sodium Sliding Scale 5 mg PO DAILY 10/23/19 04/19/22 04/18/22 History [Coumadin Sliding Scale] atorvastatin 10 mg tablet 10 mg PO HS 10/23/19 04/19/22 04/18/22 History insulin glargine 100 unit/mL (3 75 unit SQ QHS 04/19/22 04/19/22 Unknown History mL) subcutaneous pen (Lantus Solostar U-100 Insulin) quetiapine 50 mg tablet 50 mg PO QDAY 04/19/22 04/19/22 04/18/22 History tizanidine 4 mg capsule 4 mg PO DAILY PRN 04/19/22 04/19/22 04/18/22 History tramadol 50 mg tablet 50 mg PO Q6H PRN 04/19/22 04/19/22 Unknown History Allergies Allergy/AdvReac Type Severity Reaction Status Date / Time No Known Allergies Allergy Verified 04/19/22 00:38 Physical Exam Physical Exam Physical Exam: General Appearance: consistent with stated age, not in acute distress. - Build & Nutrition:Well-nourished and developed. - Hydration:Well hydrated. - Skin Exam: warm, dry, intact, normal color, normal turgor, pink. - HEENT Exam: normocephalic, atraumatic. - Eye: EOMI, PERRLA. - ENT: mucous membranes normal. - Neck Exam: supple, full ROM. - Respiratory Exam: CTA bilaterally but on NC- not baseline on NC or xoygen at home - Cardiovascular Exam: RRR. - GI/Abdominal Exam: soft, normoactive bowel sounds. - Extremities Exam: full ROM, pulses intact, normal capillary refill, vascular discoloration - Psychiatric Exam; cooperative - Neurological Exam: Alert, awake, appropriate, oriented X3. CN II-XII grossly intact with normal speech, no facial droop noted, no tongue deviation, no expressive aphasia or receptive aphasia noted. Vision grossly intact, right pupil is 4 mm with brisk rxn and left pupil is 4 mm with brisk rxn, hearing grossly intact, fundi unable to assess due to small pupils. Moving four extremities without difficulties and to commands. Hand grasps equal. Negative pronator drift. Muscle power 5/5 in BUE and 4/5 in BLE. Normal muscle tone and mass. Sensation intact to light touch, pin prick and temperature. Finger-nose test WNL. Babinski sign neutral bilaterally. DTRs symmetric bilaterally/diminished throughout. Gait not assessed. General Last Vital Signs: Temp Pulse Resp BP Pulse Ox 98 F 74 16 151/73 H 95 04/22/22 07:33 04/22/22 07:33 04/22/22 07:33 04/22/22 07:33 04/22/22 07:33 I&O: Intake & Output 04/20/22 04/21/22 04/22/22 04/23/22 06:59 06:59 06:59 06:59 Intake Total 1375 / 1375 2492.5 / 2492.5 1690 / 1690 Output Total 450 / 450 2250 / 2250 1200 / 1200 Balance 925 / 925 242.5 / 242.5 490 / 490 [place] Coma Coma scale eye opening: Spontaneous Coma scale motor response: Obeys Commands Coma scale verbal response: Oriented Coma Scale Total: 15 NIH Score LOC: Alert Questions: Answers 2 correctly Commands: Performs 2 tasks Gaze: No visual loss Visual seay: Normal Facial palsy: Normal symmetrical movements Motor arm left: No drift Motor arm right: No drift Motor leg left: No drift Motor leg right: No drift Ataxia: Absent Sensory: Absent Language: Normal Dysarthria: Normal Extinction/Inattention: Normal NIH total: 0 Results Labs Result diagrams: 04/22/22 08:48 04/21/22 05:13 Abnormal lab results 04/22/22 04/22/22 Range/Units 06:11 08:48 RBC 4.49 L (4.50-5.50) M/uL Hgb 13.1 L (13.5-16.5) g/dL Hct 39.4 L (41.0-50.0) % Plt Count 137 L (150-450) K/uL MPV 6.5 L (7.4-10.4) fL Lymph % (Auto) 15.1 L (24.0-44.0) % [place] % (Auto) 11.9 H (3.4-9.0) % [place] # (Auto) 0.8 H (0.20-0.70) K/uL Urine Glucose (UA) >=2000 A (NEGATIVE) mg/dL Urine Ketones 15 A (NEGATIVE) mg/dL Urine Occult Blood Small A (NEGATIVE) Ur Leukocyte Esterase Moderate A (NEGATIVE) Short CBC 04/22/22 Range/Units 08:48 WBC 6.9 (4.5-11.0) K/uL Hgb 13.1 L (13.5-16.5) g/dL Hct 39.4 L (41.0-50.0) % Plt Count 137 L (150-450) K/uL Urine 04/22/22 Range/Units 06:11 Urine Color Yellow Urine Appearance Clear Urine pH 5.0 (4.6-8.0) Ur Specific [place] 1.015 (1.001-1.035) Urine Protein Negative (NEGATIVE) mg/dL Urine Glucose (UA) >=2000 A (NEGATIVE) mg/dL Diagnostic results Chest x-ray: report reviewed CT Scan - head: report reviewed Additional Comments: CTH No acute intracranial findings.? CT Abdomen and Pelvis without contrast: 1. Moderate stool throughout the colon and rectum suggesting constipation. ? ?CXR No acute thoracic findings. Assessment and Plan Assessment and plan (1) Acute confusion: Code(s): R41.0 - Disorientation, unspecified Status: Acute (2) Morbid obesity: Code(s): E66.01 - Morbid (severe) obesity due to excess calories Status: Acute (3) Candiduria: Code(s): B37.49 - Other urogenital candidiasis Status: Acute (4) Abdominal pain: Code(s): R10.9 - Unspecified abdominal pain Status: Acute (5) Morbid obesity: Code(s): E66.01 - Morbid (severe) obesity due to excess calories Status: Acute (6) Chronic anticoagulation: Code(s): Z79.01 - custodial (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 of anticoagulants Status: Acute (7) Acute UTI: Code(s): N39.0 - Urinary tract infection, site not specified Status: Acute (8) Neuropathy: Code(s): G62.9 - Polyneuropathy, unspecified Status: Acute (9) Diabetes mellitus: Code(s): E11.9 - Type 2 diabetes mellitus without complications Status: Acute Plan Plan: -acute onset of AMS with unknown etiology possibly secondary to metabolic encephalopathy superimposed on baseline hx of MCI; will r/o acute TECH[employer] SU[employer] SPECIALIST pathology -reviewed CTH report and noted NAD only brain; check MRI brain and MRA head to r/o acute CVA. -check MRA neck without contrast- hx of CA stenosis -reviewed MRI brain report 09/2020 and noted mild atrophy and , NAD noted -reviewed MRA head/neck report 09/2020 and noted Mild plaquing without significant stenosis.? Mild 30-40% stenosis of the left internal carotid artery. -check EEG -check B12, FA, TSH, NH4, FLP, HBA1C levels. -check repeat CXR-pt reports need for oxygen depsite not having at home -check EKG -reviewed covid 19 and flu swabs-negative -continue warfarin and Lipitor for now. -noted pt is on seroquel baseline 50 mg daily- unclear if pt has been having confusion episodes at home as well, dgn with MCI 2020 started on aricept but pt never followed back up -SCDs for DVT prophylaxis. -continue medical management for pt underlying medical issues, repeat UA culturesent0 ID on case, IV AB stopped -PT/OT/ST evaluation. -reviewed all the pertinent medical records including the physician notes, all the labs/study findings and medication histories. -d/w the pt about current study findings, ddx, potential implication and furtherrecommendations from neuro standpoint. -d/w nursing staff about the case/plan. -will continue to follow along with you, pt can f/u PRN in neuro clinic as he never followed up outpt, Thank you for your kind referral. Documented By: Mary Beth Landavedre NP 04/22/22911 Signed By: <Electronically signed by Mary Beth Landaverde> 04/22/22926 [facility] Work Phone: 1(380) 918-584312-20-2022 Consult note Author Armen Carl [facility] April 22, 2022 7:39am Note Date/Time April 22, 2022 7:24am [facility] [address] [place] [address] Consult Note Signed Patient: CHARLI PORRAS MR#: [id number] : 1950 Acct:[id number] Age/Sex: 71 / M ADM Date: Loc: 3026-1 Date of Service: 2 Clinician: Armen Carl MD cc: Ericka Cassidy History of Present Illness Consult date: 04/22/22 Requesting physician: Judy Boo Chief complaint: UTI History of present illness: This is a 71 yrs old male with hx of morbid obesity, diabetes mellitus, hypertension, chronic kidney disease, DVT presented to the ER with confusion, weakness, and fever.? Temp was 99.4 F . He denied dysuria,abdomen pain . WBC was 10 K , UA with pyuria . He was started on IV rocephin urine cx - C glabrata Review of Systems General General: Absent chills, fatigue or fever(s) EENT Eyes: Absent change in vision or pain Ears: Absent ear pain Nose, mouth and throat: Absent hoarseness or sore throat Cardiovascular Cardiovascular: Absent chest pain, dyspnea on exertion, orthopnea or palpitations Respiratory Respiratory: Absent cough, dyspnea, hemoptysis or sputum production Gastrointestinal Gastrointestinal: Absent abdominal pain, change in bowel habits, hematochezia, melena, nausea or vomiting Musculoskeletal Musculoskeletal: Absent back pain, joint swelling or joint pain Integumentary Integumentary: Absent lesions or rash Neurological Neurological: Absent dizziness, headache(s) or memory loss Hematologic/Lymphatic Hematologic/Lymphatic pediatric: Absent easy bleeding or easy bruising PMFSH Past Medical/Surgical History Attestation statement: The following information was validated with the patient. Medical history: Reports anemia, arthritis, diabetes, hypertension and renal disease Additional Medical History: bundle branch block / dvt / [place] Surgical history: Reports adenoidectomy, cholecystectomy, knee replacement and tonsillectomy Additional Surgical History: left shoulder; cervical spine; temporary trach Psychiatric history: Reports no psych history Family History Family history: Reports no significant family history Social History service: Yes Smoking Status: Never smoker Alcohol Use: No Substance Type: None Meds Home Medications (Patient Hx and Rx) Medication Instructions Recorded Confirmed Last Taken Type allopurinol 100 mg tablet 100 mg PO DAILY 11/24/17 04/19/22 04/18/22 History (Zyloprim) duloxetine 60 mg capsule,delayed 60 mg PO DAILY 11/24/17 04/19/22 04/18/22 History release gabapentin 800 mg tablet 800 mg PO TID 11/24/17 04/19/22 04/18/22 History (Neurontin) glipizide 5 mg tablet (Glucotrol) 10 mg PO DAILY 11/24/17 04/19/22 04/18/22 History doxazosin 2 mg tablet 2 mg PO BID 05/17/18 04/19/22 04/18/22 History pramipexole 0.125 mg tablet 0.125 mg PO HS 05/17/18 04/19/22 04/18/22 History Warfarin Sodium Sliding Scale 5 mg PO DAILY 10/23/19 04/19/22 04/18/22 History [Coumadin Sliding Scale] atorvastatin 10 mg tablet 10 mg PO HS 10/23/19 04/19/22 04/18/22 History insulin glargine 100 unit/mL (3 75 unit SQ QHS 04/19/22 04/19/22 Unknown History mL) subcutaneous pen (Lantus Solostar U-100 Insulin) quetiapine 50 mg tablet 50 mg PO QDAY 04/19/22 04/19/22 04/18/22 History tizanidine 4 mg capsule 4 mg PO DAILY PRN 04/19/22 04/19/22 04/18/22 History tramadol 50 mg tablet 50 mg PO Q6H PRN 04/19/22 04/19/22 Unknown History Allergies Allergy/AdvReac Type Severity Reaction Status Date / Time No Known Allergies Allergy Verified 04/19/22 00:38 Physical Exam General General: Well Developed, Well Nourished and No Acute Distress Last Vital Signs: Temp Pulse Resp BP Pulse Ox 98.9 F 76 16 159/72 H 98 04/21/22 23:00 04/21/22 23:00 04/21/22 23:00 04/21/22 23:00 04/21/22 23:00 I&O: Intake & Output 04/19/22 04/20/22 04/21/22 04/22/22 06:59 06:59 06:59 06:59 Intake Total 1100 / 1100 1375 / 1375 2492.5 / 2492.5 1690 / 1690 Output Total 450 / 450 2250 / 2250 1200 / 1200 Balance 1100 / 1100 925 / 925 242.5 / 242.5 490 / 490 Weight 328 lb Skin Exam Skin exam: Present Warm, Dry, Intact, Normal Color, Normal Turgor and Barnum HEENT Exam Head: Present Normocephalic and Atraumatic Eye: Present EOMI and PERRLA ENT: Present Mucous Membranes Normal Neck Exam Neck exam: Present Supple and Full ROM Respiratory Exam Respiratory exam: Present CTA Bilaterally Cardiovascular Exam Cardiovascular exam: Present RRR Abdominal Exam GI/Abdominal exam: Present Soft and Normoactive Bowel Sounds Extremities Exam Extremities exam: Present Full ROM, Pulses Intact and Edema Neurological Exam Neurological exam: Present Alert, Oriented X3, Moving All Extremities and NormalSpeech Results Labs Result diagrams: 04/21/22 05:13 04/21/22 05:13 SARS-CoV-2 RT-PCR Assay Final 04/19/22-1614 SARS-CoV-2 RT-PCR Result SARS-CoV-2 RNA Not Detected Diagnostic results CT scan - abdomen: report reviewed and image reviewed CT scan - pelvis: report reviewed and image reviewed Additional Comments: CT Abdomen and Pelvis without contrast: 1. Moderate stool throughout the colon and rectum suggesting constipation. ? ? Assessment and Plan Assessment and plan (1) Candiduria: Code(s): B37.49 - Other urogenital candidiasis Status: Acute Plan: Stop rocephin ( asymptomatic ) Blood cx neg (2) Morbid obesity: Code(s): E66.01 - Morbid (severe) obesity due to excess calories Status: Acute Documented By: Armen Carl MD 04/22/22620 Signed By: <Electronically signed by Armen Carl MD> 04/22/2239 [facility] Work Phone: 1(601) 756-317712-19-2022 Progress note Author Barbara Gipson [facility] April 21, 2022 11:50am Note Date/Time April 21, 2022 11:49am [facility] r [address] [place] [address] Wound Care Progress Note Signed Patient: CHARLI PORRAS MR#: [id number] : 1950 Acct:[id number] Age/Sex: 71 / M ADM Date: Loc: 3026-1 Date of Service: 2 Clinician: Barbara Gipson RN cc: Wound Care Progress Note - Wound Care Date of Admission: 04/19/22 05:52 Reason for Consult: coccyx wound Significant History: Medical history: Reports anemia, arthritis, diabetes, hypertension and renal disease Additional Medical History: bundle branch block / dvt / [place] Surgical history: Reports adenoidectomy, cholecystectomy, knee replacement and tonsillectomy Additional Surgical History: left shoulder; cervical spine; temporary trach Psychiatric history: Reports no psych history Family History Family history: Reports no significant family history Social History service: Yes Smoking Status: Never smoker Alcohol Use: No Substance Type: None per chart Incision/Wound Intervention: Incision/Wound Intervention Incision/Wound Start: 04/19/22 15:33 Text: Status: Active Freq: QSHIFT Protocol: Activity Type Activity Date Activity User E-sign Co-sign Detail Recorded Client Recorded Date Recorded By Document 04/21/22 10:38 [email or web address] [id number] 04/21/22 10:39 [email or web address] 04/21/22 10:38 Incision/Wound/Dressing Assessment & Care [ ] Re-assess and measure wounds every Thursday [ ] [Wound Protocol: S.INSPECTOR SHELLS] Left Ishium -Wound Type Abrasion -Comment friction injury -Drainage Amount None -Odor No Odor -Wound Bed Appearance Barnum,Red -Length (cm) 3.0 -Width (cm) 5.0 -Depth (cm) 0.1 -Margin Description Indistinct -Surrounding Tissue Appearance Dark Red -Surrounding Tissue Temperature Warm -Dressing Status Open to Air -Irrigant Solution Soap and Water -Skin Cream/Lotion Calazyme Current Interventions & Plan: Patient resting in bed in semifowlers position. Alert; states he's leaving and his left to checkout; knows he is at [facility] but seems confused. Oxygen via nasal cannula; bilateral ears intact. The patient was incontinent of large amounts of urine. Floor cleaned; linens changed. BLE intact; hemosiderain staining noted. Genitals intact; patient is not appropriate for an external urinary catheter. Abdominal folds intact. Abdomen and chest intact. Disposable under pad applied to bed to wick away moisture. Back intact. Dressing removed. Abrasion on left ischium cleansed, assessed and measured. Bilateral buttocks dark red, blanchable. Barrier cream applied. EHOB mattress overlay ordered for pressure relief; hovermatt ordered to reduce friction/shear with repositioning. Patient boosted up in bed. Bilateral heels elevated off of bed. Bed alarm on. Call light and tray table within reach. Plan (discussed with RN; verified that patient is not being discharged today): Bilateral foam ear protectors to oxygen tubing prn EHOB mattress overlay Hovermatt- inflate to boost/reposition Keep heels off of bed Barrier cream prn Disposable under pad Documented By: Barbara Gipson RN 04/21/22 1039 Signed By: <Electronically signed by Barbara Gipson RN> 04/21/22 1050 [facility] Work Phone: 1(866) 477-684312-17-2022 History and physical note Author Judy Boo [facility] April 19, 2022 7:12pm Note Date/Time April 19, 2022 7:12pm [facility] [address] [place], [place] [id number] History & Physical Signed Patient: CHARLI PORRAS MR#: [id number] : 1950 Acct:[id number] Age/Sex: 71 / M ADM Date: Loc: 3026-1 Date of Service: 2 Clinician: Judy Boo MD cc: Ericka Cassidy History of Present Illness History of Present Illness Chief complaint: Fever, confusion HPI: Patient is a 71-year-old gentleman known history of obesity, diabetes mellitus type 2 on insulin, hypertension, chronic kidney disease, chronic anticoagulationwith history of DVT in the past he presents to the emergency room brought in by his with whom he lives for confusion, weakness, and fever. Found clinically to have a UTI and started on IV Rocephin and IV fluid. CT scan of the head negative for acute pathology, chest x-ray negative as well. Brought in observation for treatment and care. Review of Systems Review of Systems ROS unobtainable: due to mental status (Difficult to obtain due to mental status/slightly confused but able to answer questions) Cardiovascular Cardiovascular: Absent chest pain or dyspnea on exertion Respiratory Respiratory: Absent cough or dyspnea Gastrointestinal Gastrointestinal: Absent abdominal pain, constipation or diarrhea Genitourinary Genitourinary: Absent difficulty urinating Neurological Neurological: Present confusion (Admits to feeling confused), frequent falls (Admits to frequent falls) and tremor(s) (Recent tremors); Absent convulsions, dizziness or headache(s) [facility] Past Medical/Surgical History Attestation statement: The following information was validated with the patient. Medical history: Reports anemia, arthritis, diabetes, hypertension and renal disease Additional Medical History: bundle branch block / dvt / [place] Surgical history: Reports adenoidectomy, cholecystectomy, knee replacement and tonsillectomy Additional Surgical History: left shoulder; cervical spine; temporary trach Psychiatric history: Reports no psych history Family History Family history: Reports no significant family history Social History service: Yes Smoking Status: Never smoker Alcohol Use: No Substance Type: None Meds Home Medications (Patient Hx and Rx) Medication Instructions Recorded Confirmed Last Taken Type allopurinol 100 mg tablet 100 mg PO DAILY 11/24/17 04/19/22 04/18/22 History (Zyloprim) duloxetine 60 mg capsule,delayed 60 mg PO DAILY 11/24/17 04/19/22 04/18/22 History release gabapentin 800 mg tablet 800 mg PO TID 11/24/17 04/19/22 04/18/22 History (Neurontin) glipizide 5 mg tablet (Glucotrol) 10 mg PO DAILY 11/24/17 04/19/22 04/18/22 History doxazosin 2 mg tablet 2 mg PO BID 05/17/18 04/19/22 04/18/22 History pramipexole 0.125 mg tablet 0.125 mg PO HS 05/17/18 04/19/22 04/18/22 History Warfarin Sodium Sliding Scale 5 mg PO DAILY 10/23/19 04/19/22 04/18/22 History [Coumadin Sliding Scale] atorvastatin 10 mg tablet 10 mg PO HS 10/23/19 04/19/22 04/18/22 History insulin glargine 100 unit/mL (3 75 unit SQ QHS 04/19/22 04/19/22 Unknown History mL) subcutaneous pen (Lantus Solostar U-100 Insulin) quetiapine 50 mg tablet 50 mg PO QDAY 04/19/22 04/19/22 04/18/22 History tizanidine 4 mg capsule 4 mg PO DAILY PRN 04/19/22 04/19/22 04/18/22 History tramadol 50 mg tablet 50 mg PO Q6H PRN 04/19/22 04/19/22 Unknown History Allergies Allergy/AdvReac Type Severity Reaction Status Date / Time No Known Allergies Allergy Verified 04/19/22 00:38 Physical Exam General General: Well Developed, Normal hydration, No Acute Distress, Morbidly Obese andChronically Ill Appearing Last Vital Signs: Temp Pulse Resp BP Pulse Ox 99.5 F H 94 16 112/86 93 04/19/22 15:34 04/19/22 15:34 04/19/22 15:34 04/19/22 15:34 04/19/22 15:34 I&O: Intake & Output 04/17/22 04/18/22 04/19/22 04/20/22 06:59 06:59 06:59 06:59 Intake Total 1100 / 1100 1375 / 1375 Balance 1100 / 1100 1375 / 1375 Weight 148.778 kg Skin Exam Skin exam: Present Warm, Dry, Normal Color and Normal Turgor HEENT Exam Head: Present Normocephalic and Atraumatic Eye: Present EOMI ENT: Present Mucous Membranes Normal Respiratory Exam Respiratory exam: Present Decreased Breath Sounds; Absent Accessory Muscle Use, Rales, Rhonchi or Wheezes Cardiovascular Exam Cardiovascular exam: Present RRR, S1 and S2; Absent Murmur, Gallop or Rubs Abdominal Exam GI/Abdominal exam: Present Soft, Non-Tender and Non-Distended Extremities Exam Extremities exam: Present Full ROM; Absent Edema Neurological Exam Neurological exam: Present Alert, CN II-XII Grossly Intact and Normal Speech; Absent Oriented X3 (Oriented to person and place only) Psychiatric Exam Psychiatric exam: Present Cooperative Results Labs Result diagrams: 04/19/22 00:50 04/19/22 00:50 Abnormal lab results 1204/19/22 04/19/22 Range/Units 00:50 00:50 00:50 MPV 6.6 L (7.4-10.4) fL Neut % (Auto) 77.7 H (40.0-74.0) % Lymph % (Auto) 12.6 L (24.0-44.0) % [place] # (Auto) 0.8 H (0.20-0.70) K/uL PT 29.9 H (9.5-12.9) s INR 2.64 H (0.80-2.00) Sodium 131 L (135-145) mEq/L Chloride 94 L (98-107) mEq/L Anion Gap 13.0 H (3-11) mEq/L Creatinine 1.5 H (0.6-1.3) mg/dL Glucose 273 H (70-99) mg/dL Lactic Acid (0.5-2.0) mmol/L Total Protein 8.2 H (5.9-7.8) g/dL Globulin 4.1 H (1.9-3.9) g/dL Albumin/Globulin Ratio 1.0 L (1.1-2.2) ratio Urine Protein (NEGATIVE) mg/dL Urine Glucose (UA) (NEGATIVE) mg/dL Urine Occult Blood (NEGATIVE) Ur Leukocyte Esterase (NEGATIVE) 04/19/22 04/19/22 Range/Units 03:07 05:41 MPV (7.4-10.4) fL Neut % (Auto) (40.0-74.0) % Lymph % (Auto) (24.0-44.0) % [place] # (Auto) (0.20-0.70) K/uL PT (9.5-12.9) s INR (0.80-2.00) Sodium (135-145) mEq/L Chloride (98-107) mEq/L Anion Gap (3-11) mEq/L Creatinine (0.6-1.3) mg/dL Glucose (70-99) mg/dL Lactic Acid 2.9 H* (0.5-2.0) mmol/L Total Protein (5.9-7.8) g/dL Globulin (1.9-3.9) g/dL Albumin/Globulin Ratio (1.1-2.2) ratio Urine Protein Trace A (NEGATIVE) mg/dL Urine Glucose (UA) 1000 A (NEGATIVE) mg/dL Urine Occult Blood Small A (NEGATIVE) Ur Leukocyte Esterase Trace A (NEGATIVE) Short CBC 04/19/22 Range/Units 00:50 WBC 10.1 (4.5-11.0) K/uL Hgb 15.6 (13.5-16.5) g/dL Hct 46.6 (41.0-50.0) % Plt Count 165 (150-450) K/uL BMP 04/19/22 00:50 Sodium 131 L Potassium 4.1 Chloride 94 L Carbon Dioxide 24 BUN 18 Creatinine 1.5 H Glucose 273 H Calcium 9.0 Liver Function 04/19/22 Range/Units 00:50 Total Bilirubin 1.2 (0.3-1.5) mg/dL AST 29 (10-41) U/L ALT 27 (10-63) U/L Alkaline Phosphatase 96 (42-121) U/L Albumin 4.1 (3.4-4.8) g/dL Urine 04/19/22 Range/Units 03:07 Urine Color Yellow Urine Appearance Hazy Urine pH 5.0 (4.6-8.0) Ur Specific [place] 1.015 (1.001-1.035) Urine Protein Trace A (NEGATIVE) mg/dL Urine Glucose (UA) 1000 A (NEGATIVE) mg/dL Assessment and Plan (1) Acute confusion: Code(s): R41.0 - Disorientation, unspecified Status: Acute (2) Acute UTI: Code(s): N39.0 - Urinary tract infection, site not specified Status: Acute (3) Benign hypertension: Code(s): I10 - Essential (primary) hypertension Status: Acute (4) Hyperlipidemia: Code(s): E78.5 - Hyperlipidemia, unspecified Status: Acute (5) Diabetes mellitus: Code(s): E11.9 - Type 2 diabetes mellitus without complications Status: Acute (6) Chronic anticoagulation: Code(s): Z79.01 - custodial (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 of anticoagulants Status: Acute (7) History of DVT (deep vein thrombosis): Code(s): Z86.718 - Personal history of other venous thrombosis and embolism (8) Morbid obesity: Code(s): E66.01 - Morbid (severe) obesity due to excess calories Status: Acute Plan Observation on general floor. Patient is a full code. Tylenol as needed for fever. IV hydration and monitor for fluid overload. Continue Rocephin started in the ER. Add probiotics. Insulin sliding scale as ordered, most likely to add long-acting insulin tomorrow. Encourage p.o. intake. Out of bed with assistance with PT and OT consult. Check cardiac enzymes. Await cultures. Discharge planning pending progression. Sepsis Focused Exam Vital signs: Vital Signs Temp Pulse Pulse Resp BP BP Pulse Ox 04/19/22 15:33 16 93 04/19/22 15:34 99.5 F H 94 16 112/86 93 04/19/22 14:43 89 18 107/70 99 04/19/22 09:20 92 18 133/63 100 04/19/22 09:17 92 133/63 04/19/22 07:35 94 20 122/75 99 04/19/22 06:34 95 20 131/78 98 Respiratory exam: Present Decreased Breath Sounds; Absent Accessory Muscle Use, Rales, Rhonchi or Wheezes Cardiovascular exam: Present RRR, S1 and S2; Absent Murmur, Gallop or Rubs Billing Billing Category Observation Initial: 66501 O3 High Documented By: Judy Boo MD 04/19/221803 Signed By: <Electronically signed by Judy Boo MD> 04/19/221811 [facility] Work Phone: discharge summary Author Verónica Martineztaylor [facility] April 23, 2022 11:07am Note Date/Time April 23, 2022 11:01am [facility] [address] [place] [id number] Discharge Summary Signed Patient: CHARLI PORRAS MR#: [id number] : 1950 Acct:[id number] Age/Sex: 71 / M ADM Date: Loc: 2T 2004-05 Date of Service: 2 Clinician: Verónica Atkinson cc: Ericka Cassidy DS: Providers Date of admission: 04/19/22 05:52 Primary care physician: Ericka Cassidy Consults: ID, neurology Anticipated date of discharge: 04/23/22 DS: Diagnosis Discharge Diagnosis (1) Acute confusion: Code(s): R41.0 - Disorientation, unspecified Status: Acute Assessment/Plan: Improved from admission Neurology consulted during admission and work-up unremarkable Patient's aware that they should continue to follow-up with his already established neurologist at [facility], they agree to keep appointment in June pt on aricept previously but discontinued, requesting restarting this medication, one month supply sent to pharmacy (2) Acute UTI: Code(s): N39.0 - Urinary tract infection, site not specified Status: Acute Assessment/Plan: Urine growing Callie on initial culture Repeat urine culture only with pinpoint growth Initially received IV Rocephin, no further antibiotics needed No urinary complaints on day of discharge (3) Benign hypertension: Code(s): I10 - Essential (primary) hypertension Status: Chronic Assessment/Plan: Continue home medication started on clonidine patch (4) Hyperlipidemia: Code(s): E78.5 - Hyperlipidemia, unspecified Status: Chronic Assessment/Plan: Continue home medication (5) Chronic anticoagulation: Code(s): Z79.01 - custodial (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 of anticoagulants Status: Chronic Assessment/Plan: Continue home warfarin INR therapeutic (6) Diabetes mellitus: Code(s): E11.9 - Type 2 diabetes mellitus without complications Status: Chronic Assessment/Plan: Continue home p.o. medication Resume home insulin dose Follow-up with primary care physician for further management (7) History of DVT (deep vein thrombosis): Code(s): Z86.718 - Personal history of other venous thrombosis and embolism Assessment/Plan: Continue home warfarin (8) Morbid obesity: Code(s): E66.01 - Morbid (severe) obesity due to excess calories Status: Acute (9) Abdominal pain: Code(s): R10.9 - Unspecified abdominal pain Status: Acute Assessment/Plan: Resolved DS: Summary Hospital course: 71-year-old male past medical history of obesity, diabetes, hypertension, chronic kidney disease, chronic anticoagulation with history of DVT presented tothe ED with his for confusion, weakness and fever. Noted to have a UTI andstarted on IV Rocephin. CT scan of the head showed no acute findings, chest x-ray also negative. Infectious disease was consulted. Urine culture noting Callie and Rocephin was stopped. Neurology was also consulted during admissionand further imaging was done, all unremarkable. Patient had been started on Aricept in the past and per review of neurology note did not feel patient had any improvement with this medication so they discontinued it. Patient does have a neurologist at [facility] and agrees to keep already scheduled appointment for June. No further inpatient neurologic work-up indicated at this time. Patient has no leukocytosis, hemoglobin 13.3, INR therapeutic at 2.25 and BMP relatively unremarkable other than a glucose of 244. It appears patient utilizes 75 units of Lantus at night at home, he has been receiving 35 units twice a day here which is less than what he takes at home, will resume home dose at discharge. He should continue to follow-up with his PCP. Repeat urine culture was done which was pinpoint growth. Patient has no urinary complaints. He is medically stable for discharge to home today. Status at Discharge Functional status at discharge: Uses Cane/Walker Overall status at discharge: Patient is progressing back to baseline Time Spent with Patient Total time spent providing and/or coordinating discharge services: Greater than 30 minutes Exam Vital signs: Temp Pulse Resp BP Pulse Ox 97.5 F L 72 17 154/80 H 96 04/23/22 08:00 04/23/22 08:00 04/23/22 08:00 04/23/22 08:00 04/23/22 08:00 Narrative: General: well-developed, well-nourished obese male, no distress, cooperative Skin: warm, dry, intact, pink, without cyanosis HEENT: normocephalic, atraumatic, EOMI, mucous membranes moist Respiratory: clear to auscultation bilaterally without rales, rhonchi, wheezes, crackles, or respiratory distress Cardiovascular: regular rate and rhythm without murmur, rub, or gallop Abdominal: soft, nontender, nondistended, with normoactive bowel sounds Extremities: full ROM, pulses intact, without edema Neurologic/psychiatric: A&Ox3, no gross motor or sensory deficits noted on physical exam, appropriate muscle strength and tone for age, moving all extremities spontaneously; appropriate affect, mood and normal thought process DS: Data Labs on day of discharge: Labs from last 24 hours 04/23/22 04/23/22 04/23/22 06:07 05:23 05:23 WBC RBC Hgb Hct MCV MCH MCHC RDW Plt Count MPV Neut % (Auto) Lymph % (Auto) [place] % (Auto) Eos % (Auto) Baso % (Auto) Neut # (Auto) Lymph # (Auto) [place] # (Auto) Eos # (Auto) Baso # (Auto) PT INR (Therapeutic) 2.25 Anticoagulation Therapy Sodium 135 Potassium 3.8 Chloride 102 Carbon Dioxide 23 Anion Gap 10.0 BUN 20 Creatinine 1.1 Est GFR ( Amer) 80 Est GFR (Non-Af Amer) 66 Glucose 244 H POC Glucose 360 Hemoglobin A1c Estim Average Glucose Lactic Acid Calcium 8.5 Total Bilirubin 1.1 AST 42 H ALT 39 Alkaline Phosphatase 80 Total Protein 6.6 Albumin 3.1 L Globulin 3.5 Albumin/Globulin Ratio 0.9 L Triglycerides Cholesterol LDL Cholesterol HDL Cholesterol LDL/HDL Ratio Vitamin B12 Folate TSH Gabapentin 04/23/22 04/22/22 04/22/22 05:23 20:57 15:44 WBC 7.0 RBC 4.51 Hgb 13.3 L Hct 39.7 L MCV 88.0 MCH 29.4 MCHC 33.5 RDW 13.5 Plt Count 163 MPV 7.6 Neut % (Auto) 66.0 Lymph % (Auto) 18.2 L Geneva % (Auto) 10.1 H Eos % (Auto) 4.7 H Baso % (Auto) 1.0 Neut # (Auto) 4.6 Lymph # (Auto) 1.3 [place] # (Auto) 0.7 Eos # (Auto) 0.3 Baso # (Auto) 0.1 PT INR (Therapeutic) Anticoagulation Therapy Sodium Potassium Chloride Carbon Dioxide Anion Gap BUN Creatinine Est GFR ( Amer) Est GFR (Non-Af Amer) Glucose POC Glucose 314 171 Hemoglobin A1c Estim Average Glucose Lactic Acid Calcium Total Bilirubin AST ALT Alkaline Phosphatase Total Protein Albumin Globulin Albumin/Globulin Ratio Triglycerides Cholesterol LDL Cholesterol HDL Cholesterol LDL/HDL Ratio Vitamin B12 Folate TSH Gabapentin 04/22/22 04/22/22 04/22/22 10:51 10:14 10:14 WBC RBC Hgb Hct MCV MCH MCHC RDW Plt Count MPV Neut % (Auto) Lymph % (Auto) [place] % (Auto) Eos % (Auto) Baso % (Auto) Neut # (Auto) Lymph # (Auto) [place] # (Auto) Eos # (Auto) Baso # (Auto) PT INR (Therapeutic) Anticoagulation Therapy Sodium Potassium Chloride Carbon Dioxide Anion Gap BUN Creatinine Est GFR ( Amer) Est GFR (Non-Af Amer) Glucose POC Glucose 292 Hemoglobin A1c Estim Average Glucose Lactic Acid 1.1 Calcium Total Bilirubin AST ALT Alkaline Phosphatase Total Protein Albumin Globulin Albumin/Globulin Ratio Triglycerides 189 Cholesterol 99 L LDL Cholesterol 46 HDL Cholesterol 23 L LDL/HDL Ratio 2.0 Vitamin B12 787 Folate > 24.8 TSH 3.00 Gabapentin 04/22/22 04/22/22 10:14 07:11 WBC RBC Hgb Hct MCV MCH MCHC RDW Plt Count MPV Neut % (Auto) Lymph % (Auto) [place] % (Auto) Eos % (Auto) Baso % (Auto) Neut # (Auto) Lymph # (Auto) [place] # (Auto) Eos # (Auto) Baso # (Auto) PT INR (Therapeutic) Anticoagulation Therapy Sodium Potassium Chloride Carbon Dioxide Anion Gap BUN Creatinine Est GFR ( Amer) Est GFR (Non-Af Amer) Glucose POC Glucose Hemoglobin A1c Pending Estim Average Glucose Pending Lactic Acid Calcium Total Bilirubin AST ALT Alkaline Phosphatase Total Protein Albumin Globulin Albumin/Globulin Ratio Triglycerides Cholesterol LDL Cholesterol HDL Cholesterol LDL/HDL Ratio Vitamin B12 Folate TSH Gabapentin Pending Preliminary micro results at discharge 04/22/22 06:41 Urine Culture - Preliminary Urine,Clean Catch Pinpoint growth 24 hours 04/19/22 05:41 Blood Culture - Preliminary Blood NO GROWTH 3 DAYS 04/19/22 05:41 Blood Culture - Preliminary Blood NO GROWTH 3 DAYS Discharge Plan Follow up Plan Referrals/Follow-up with: Ericka Cassidy [Primary Care Provider] - Patient Disposition: Home Plan of Care Diagnosis/Plan of care 1:: confusion Goal 1:: improvement Instructions 1:: followup with neurology at [facility] as already scheduled Discharge Instructions Activity: increase activity as tolerated Diet: advance to usual diet, diabetic diet and low fat, low cholesterol diet Prescriptions and Medication Reconciliation: New donepezil 5 mg Tablet 5 mg PO QDAY Qty: 30 0RF polyethylene glycol 3350 17 gram Powder In Packet 17 g PO QDAYPRN PRN (Reason: Constipation) Qty: 30 0RF clonidine 0.2 mg/24 hr Patch Weekly 1 ea TD Bedolla@1000 Qty: 4 0RF Continued atorvastatin 10 MG tablet 10 mg PO HS Warfarin Sodium Sliding Scale [Coumadin Sliding Scale] 1 TAB Tablet 5 mg PO DAILY allopurinol [Zyloprim] 100 MG tablet 100 mg PO DAILY gabapentin [Neurontin] 800 MG tablet 800 mg PO TID glipizide [Glucotrol] 5 MG tablet 10 mg PO DAILY duloxetine 60 MG capsule,delayed release(DR/EC) 60 mg PO DAILY pramipexole 0.125 MG tablet 0.125 mg PO HS doxazosin 2 MG tablet 2 mg PO BID quetiapine 50 mg Tablet 50 mg PO QDAY tizanidine 4 mg Capsule 4 mg PO DAILY PRN insulin glargine [Lantus Solostar U-100 Insulin] 100 unit/mL (3 mL) Insulin Pen 75 unit SQ QHS Discontinued tramadol 50 mg Tablet 50 mg PO Q6H PRN Discharge Orders Discharge Orders: Discharge Order (Routine); Ordered 04/23/22 Ordered By: Verónica Atkinson Billing Billing Category Observation Discharge: [id number] OD Documented By: BRANT Cabrera 04/23/22 0830 Signed By: <Electronically signed by BRANT Atkinson> 04/23/[address] [place] [address] Work Phone: evaluation note* Diagnosis Onset Date Resolution Status Acute confusion acute Acute UTI acute [facility] Work Phone: evaluation note* Diagnosis Onset Date Resolution Status Abdominal pain acute Acute confusion acute Acute UTI acute Candiduria acute Morbid obesity acute Neuropathy acute Benign hypertension chronic 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 Diabetes mellitus chronic Hyperlipidemia chronic [facility] Work Phone: evaluation note* Diagnosis Onset Date Resolution Status Morbid obesity acute Abdominal pain resolved Acute confusion resolved Acute UTI resolved Candiduria resolved Acute UTI acute Encephalopathy acute Morbid obesity acute [facility] Work Phone: evaluation noteNo assessment information available [facility] Work Phone: Progress note Author Barbara Gipson [facility] April 23, 2022 12:41pm Note Date/Time April 23, 2022 12:41pm [address] [address] Wound Care Progress Note Signed Patient: CHARLI PORRAS MR#: [id number] : 1950 Acct:[id number] Age/Sex: 71 / M ADM Date: Loc: 2004-05 Date of Service: 2 Clinician: Barbara Gipson RN cc: Wound Care Progress Note - Wound Care Date of Admission: 04/19/22 05:52 Reason for Consult: coccyx wound Significant History: Medical history: Reports anemia, arthritis, diabetes, hypertension and renal disease Additional Medical History: bundle branch block / dvt / [place] filter Surgical history: Reports adenoidectomy, cholecystectomy, knee replacement and tonsillectomy Additional Surgical History: left shoulder; cervical spine; temporary trach Psychiatric history: Reports no psych history Family History Family history: Reports no significant family history Social History service: Yes Smoking Status: Never smoker Alcohol Use: No Substance Type: None per chart Incision/Wound Intervention: Incision/Wound Intervention Incision/Wound Start: 04/19/22 15:33 Text: Status: Active Freq: QSHIFT Protocol: Activity Type Activity Date Activity User E-sign Co-sign Detail Recorded Client Recorded Date Recorded By Document 04/23/22 11:36 [email or web address] [id number] 04/23/22 11:38 [email or web address] 04/23/22 11:36 Incision/Wound/Dressing Assessment & Care [ ] Re-assess and measure wounds every Thursday [ ] [Wound Protocol: S.INSPECTOR SHELLS] Right Buttock -Wound Type Abrasion -Drainage Amount None -Odor No Odor -Wound Bed Appearance Red,Peeling Skin -Length (cm) 2.0 -Width (cm) 1.0 -Depth (cm) 0.1 -Margin Description Indistinct -Surrounding Tissue Appearance Barnum -Surrounding Tissue Temperature Warm -Dressing Status Open to Air -Irrigant Solution Soap and Water -Skin Cream/Lotion Calazyme Left Ishium -Wound Type Abrasion -Drainage Amount None -Odor No Odor -Wound Bed Appearance Red,Peeling Skin -Length (cm) 3.0 -Width (cm) 2.0 -Depth (cm) 0.1 -Margin Description Indistinct -Surrounding Tissue Appearance Barnum -Surrounding Tissue Temperature Warm -Dressing Status Open to Air -Irrigant Solution Soap and Water -Skin Cream/Lotion Calazyme Current Interventions & Plan: Patient in bathroom getting washed up. Patient stood with assistance. Abrasion on left ischium cleansed, assessed and measured. Abrasion on right buttock assessed and measured. Bilateral buttocks with chronic skin discoloration. Barrier cream applied. EHOB mattress overlay on bed. Therapy staff working with patient. Plan: Bilateral foam ear protectors to oxygen tubing prn EHOB mattress overlay Hovermatt- inflate to boost/reposition Keep heels off of bed Barrier cream prn Disposable under pad Documented By: Barbara Gipson RN 04/23/22 1138 Signed By: <Electronically signed by Barbara Gipson RN> 04/23/22 1141 [facility] Work Phone: reason for referral (narrative)No reason for referral information [facility] Work Phone: Hospital Course Note [facility] [address] [facility] [address] Dept: [phone] Loc: [phone] Adult Hip and Knee Reconstruction Service Patient Name: Charli Porras Date of : 1950 Date: 08/20/18 Discharge Summary Admit date: 08/16/2018 Discharge date and time: 08/19/2018 4:40 PM Admitting Physician: Sohan Gilliland MD 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 Hospital Course: The patient was admitted to the hospital on the day of surgery and underwent the above procedure. Post-operatively, the patient was transferred to the orthopaedic floor. They received prophylactic intravenous antibiotics. DVT prophylaxis included SCDs, early ambulation, and Lovenox was started (more content not included)... Discharge Summary No Discharge Summary Informa tion Discharge Instructions Discharge Instructions No Discharge Instructions Summary Purpose Family History No Family History Records FoundNo Family History Records FoundNo Family History Records FoundNo Family History Records FoundNo Family History Records FoundNo Family History Records FoundNo Family History Records FoundNo Family History Records Found Advance Directives Advance Directive Response Recorded Date/ Time Advance Directives No April 12:16am Organ Donor No April 19, 2 022 12:16am Tissue Donor No April 19, 2 022 12:16am Advance Directive Response Recorded Date/ Time Advance Directives No April 3:33pm Living Will No April 19, 2 022 3:33pm Organ Donor No April 19 2 022 3:33pm Power of Coater Hand No April 19, 2022 3:33pm Tissue Donor No April 19, 2 022 3:33pm Advance Directive Response Recorded Date/ Time Advance Directives No May 31, 2022 6:53pm Living Will No May 31 6:53pm Organ Donor No May 31 6:53pm Power of Coater Hand No May 31, 2022 6:53pm Relationship Ariadna () cell phone [phone] June 01, 2022 1:07pm Tissue Donor No May 31 6:53pm Advance Directive Response Recorded Date/ Time Living Will No November 06, 2022 2 :32pm Power of Coater Hand No November 06, 2022 2:32pm Advance Directive Response Recorded Date/ Time Living Will No August 20, 2024 12:00am Do you have a Healthcare Power of Coater Hand? No August 20, 2024 12:00am Chief Complaint and Reason for Visit Chief Complaint UTI, CONFUSION Reason for Visit Acute confusion Acute UTI Chief Complaint UTI, CONFUSION UTI, CONFUSION UTI, CONFUSION UTI, CONFUSION UTI, CONFUSION UTI, CONFUSION UTI, CONFUSION Reason for Visit Abdominal pain Acute confusion Acute UTI Candiduria Morbid obesity Neuropathy Benign hypertension Chronic anticoagulation Diabetes mellitus Hyperlipidemia Chief Complaint UTI, CONFUSION UTI, CONFUSION UTI, CONFUSION UTI, CONFUSION UTI, CONFUSION UTI, CONFUSION UTI, CONFUSION UTI,ENCEPHALOPATHY UTI,ENCEPHALOPATHY UTI,ENCEPHALOPATHY Reason for Visit Morbid obesity Abdominal pain Acute confusion Acute UTI Candiduria Acute UTI Encephalopathy Morbid obesity Chief Complaint bite Chief Complaint Admit Date SEPSIS August 20, 2024 2:4 0am UROSEPSIS August 20, 2024 3:1 5am Reason for Visit Admit Date Acute metabolic encephalopathy August 3:15am Septic shock August 20, 2024 3:1 5am UTI (urinary tract infection) August 3:15am Chief Complaint Admit Date SEPSIS August 20, 2024 2:4 0am UROSEPSIS August 20, 2024 3:1 5am UROSEPSIS August 21, 2024 7:1 4am UROSEPSIS August 22, 2024 8:0 5am UROSEPSIS August 23, 2024 11: 17am Reason for Visit Admit Date Acute metabolic encephalopathy August 3:15am Septic shock August 20, 2024 3:1 5am UTI (urinary tract infection) August 3:15am MISTY (acute kidney injury) August 20 3:15am CKD (chronic kidney disease), stage III August 20, 2024 3:15am Dementia August 20, 2024 3:1 5am Insulin dependent diabetes mellitus Apri l 2024 3:15am Additional Source Comments (unrecognized sect ion and content) No Status Records FoundNo Status Records FoundNo Status Records FoundNo Status Records FoundNo Status Records FoundNo Status Records FoundNo Status Records FoundNo Status Records Found INFORMATION SOURCE (unrecogn ized section and content) DATE CREATED AUTHOR 02/10/2019 [facility] DATE CREATED AUTHOR AUTHOR'S ORGANIZ ATION 05/12/2019 [facility] DATE CREATED AUTHOR AUTHOR'S ORGANIZ ATION 07/18/[address] [facility] DATE CREATED AUTHOR AUTHOR'S ORGANIZ ATION 03/15/2022 [facility] DATE CREATED AUTHOR AUTHOR'S ORGANIZ ATION 06/11/2022 [facility] DATE CREATED AUTHOR AUTHOR'S ORGANIZ ATION 07/10/2022 [facility] DATE CREATED AUTHOR AUTHOR'S ORGANIZ ATION 01/10/2023 [facility] ([place]) DATE CREATED AUTHOR AUTHOR'S ORGANIZ ATION 09/11/2024 [facility] Care Teams (unrecognized sec tion and content) Team Status: Active Member Role Status Dates MELY DUARTE Primary Care Provider Active Team Status: Active Member Role Status Dates No Primary Care Physician Primary Care Provider Active Start: August 20, 2024 Dr. Kaushik Brown , DO Emergency Provider Active Start: August 20, 2024 Dr. Saroj Gutierrez , DO Admit Provider Active Start: August 20, 2024 Dr. Saroj Gutierrez , DO Attending Provider Active Start: August 20, 2024 Dr. Saroj Gutierrez DO Other Provider Active Start: August 20, 2024 Team Status: Inactive Member Role Status Dates Dr. Kaushik Brown DO Emergency Provider Active Start: August 20, 2024 End: August 23, 2024 Dr. Saroj Gutierrez DO Admit Provider Active Start: August 20, 2024 End: August 23, 2024 Dr. Saroj Gutierrez DO Other Provider Active Start: August 20, 2024 End: August 23, 2024 Dr. Mao Muse MD Attending Provider Active Start: August 20, 2024 End: August 23, 2024 Dr. Tello Borrego MD Other Provider Active Start: August 20, 2024 End: August 23, 2024 Dr. Kerline Miranda MD Other Provider Active Start: August 20, 2024 End: August 23, 2024 MELY DUARTE Primary Care Provider Active Start: August 20, 2024 End: August 23, 2024 Team Status: Active Member Role Status Dates No Primary Care Physician Primary Care Provider Active Start: August 21, 2024 Dr. Kaushik Brown DO Emergency Provider Active Start: August 21, 2024 Dr. Saroj Gutierrez DO Admit Provider Active Start: August 21, 2024 Dr. Saroj Gutierrez DO Other Provider Active Start: August 21, 2024 Dr. Mao Muse MD Attending Provider Active Start: August 21, 2024 Dr. Mao Muse MD Other Provider Active Sta rt: August 21, 2024 Dr. Steve Ocampo MD Other Provider Active Start: August 21, 2024 Dr. Joesph Syed MD Other Provider Active Start: August 21, 2024 Dr. Manas Osman MD Other Provider Active Star t: August 21, 2024 Dr. Lance Bonner DO Other Provider Active Start : August 21, 2024 Dr. Darnell Mora MD Other Provider Active Sta rt: August 21, 2024 Dr. Spencer Donnelly MD Other Provider Active St art: August 21, 2024 Dr. Maximiliano Cole MD Other Provider Active S tart: August 21, 2024 Dr. Aileen Abdi MD Other Provider Active Start: August 21, 2024 Dr. Lio Lucas MD Other Provider Active Start : August 21, 2024 Dr. Baljinder Gordon MD Other Provider Active Start: August 21, 2024 Dr. Kaushik Sykes MD Other Provider Active Start : August 21, 2024 Dr. Alejandra Canales MD Other Provider Active Star t: August 21, 2024 Dr. Chrissy Bledsoe MD Other Provider Active Sta rt: August 21, 2024 Dr. Dyana Vasquez MD Other Provider Active Sta rt: August 21, 2024 Dr. Renato Mcginnis MD Other Provider Active Star t: August 21, 2024 Dr. Lucian Hernandez MD Other Provider Active St art: August 21, 2024 Dr. Jose Langley MD Other Provider Active Star t: August 21, 2024 Dr. Triston Ruggiero , Other Provider Active St art: August 21, 2024 Dr. Shi Ramos MD Other Provider Active Start: August 21, 2024 Dr. Migue Owens MD Other Provider Active St art: August 21, 2024 Dr. Froilan Dan DO Other Provider Active Start: August 21, 2024 Dr. Jose Dumont MD Other Provider Active Star t: August 21, 2024 Dr. Carl Marcos MD Other Provider Active Sta rt: August 21, 2024 Team Status: Active Member Role Status Dates No Primary Care Physician Primary Care Provider Active Start: August 22, 2024 Dr. Kaushik Brown , Emergency Provider Active Start: August 22, 2024 Dr. Saroj Gutierrez DO Admit Provider Active Start: August 22, 2024 Dr. Saroj Gutierrez DO Other Provider Active Start: August 22, 2024 Dr. Mao Muse MD Attending Provider Active Start: August 22, 2024 Dr. Mao Muse MD Other Provider Active Sta rt: August 22, 2024 Dr. Tello Borrego MD Other Provider Active Start: August 22, 2024 Dr. Kerline Miranda MD Other Provider Active Start: August 22, 2024 Team Status: Active Member Role Status Dates Dr. Kaushik Brown DO Emergency Provider Active Start: August 23, 2024 Dr. Saroj Gutierrez DO Admit Provider Active Start: August 23, 2024 Dr. Saroj Gutierrez DO Other Provider Active Start: August 23, 2024 Dr. Mao Muse MD Attending Provider Active Start: August 23, 2024 Dr. Mao Muse MD Other Provider Active Sta rt: August 23, 2024 Dr. Tello Borrego MD Other Provider Active Start: August 23, 2024 Dr. Kerline Miranda MD Other Provider Active Start: August 23, 2024 MELY DUARTE Primary Care Provider Active Start: August 23, 2024 Team Status: Active Member Role Status Dates Ericka Cassidy Primary Care Provider Active Team Status: Active Member Role Status Dates Ericka Cassidy Primary Care Provider Active Thompson Hayden MD Emergency Provider Active Verito Devi MD Admit Provider, Attending Provider Active Team Status: Active Member Role Status Dates Ericka Cassidy Primary Care Provider Active Thompson Hayden MD Emergency Provider Active Verito Devi MD Admit Provider, Other Provider Acti ve Judy Boo MD Attending Provider Active Team Status: Active Member Role Status Dates Ericka Cassidy Primary Care Provider Active Thompson Hayden MD Emergency Provider Active Verito Devi MD Admit Provider, Other Provider Acti ve Charisse Valencia MD Other Provider Active Armen Carl MD Other Provider Active [facility] Other Provider Active Judy Boo MD Attending Provider Active Team Status: Active Member Role Status Dates Ericka Cassidy Primary Care Provider Active Thompson Hayden MD Emergency Provider Active Verito Devi MD Admit Provider, Other Provider Acti ve Charisse Valencia MD Other Provider Active Armen Carl MD Other Provider Active [facility] Other Provider Active Mary Beth Landaverde NP Attending Provider Active Team Status: Active Member Role Status Dates Ericka Cassidy Primary Care Provider Active Thompson Hayden MD Emergency Provider Active Verito Devi MD Admit Provider, Other Provider Acti ve Armen Carl MD Other Provider Active Charisse Valencia MD Other Provider Active Judy Boo MD Attending Provider Active Team Status: Active Member Role Status Dates Ericka Cassidy Primary Care Provider Active Thompson Hayden MD Emergency Provider Active Verito Devi MD Admit Provider, Other Provider Acti ve Charisse Valencia MD Other Provider Active Armen Carl MD Other Provider Active [facility] Other Provider Active BRANT Cabrera Attending Provider Active Team Status: Inactive Member Role Status Dates Ericka Cassidy Primary Care Provider Active Thompson Hayden MD Emergency Provider Active Verito Devi MD Admit Provider, Attending Provider Active Charisse Valencia MD Other Provider Active Armen Carl MD Other Provider Active [facility] Other Provider Active Team Status: Active Member Role Status Dates Devika Mayorgae Primary Care Provider Active Team Status: Active Member Role Status Dates Ericka Cassidy Primary Care Provider Active Thompson Hayden MD Emergency Provider Active Naresh Sainz , DO Admit Provider, Other Provider Active Tello Lynch MD Attending Provider Active Team Status: Active Member Role Status Dates Ericka Cassidy Primary Care Provider Active Thompson Hayden MD Emergency Provider Active Naresh Sainz , DO Admit Provider, Attending Provider, Other Provider Active Team Status: Inactive Member Role Status Dates Thompson Hayden MD Emergency Provider Active Naresh Sainz , DO Admit Provider, Attending Prov ider [facility] Active [facility] Other Provider Active Team Status: Active Member Role Status Dates No Primary Care Physician Family Provider Active No Primary Care Physician Primary Care Provider Active Team Status: Inactive Member Role Status Dates No Primary Care Physician Primary Care Provider Active Dr. Beni Milian MD Emergency Provider Active Team Status: Active Member Role Status Dates No Primary Care Physician Primary Care Provider Active Team Status: Active Member Role Status Dates No Primary Care Physician Primary Care Provider Active Start: August 20, 2024 Dr. Kaushik Brown DO Emergency Provider Active Start: August 20, 2024 Dr. Saroj Gutierrez DO Admit Provider Active Start: August 20, 2024 Dr. Saroj Gutierrez DO Attending Provider Active Start: August 20, 2024 Dr. Saroj Gutierrez DO Other Provider Active Start: August 20, 2024 Team Status: Active Member Role Status Dates No Primary Care Physician Primary Care Provider Active Start: August 20, 2024 Dr. Kaushik Brown DO Emergency Provider Active Start: August 20, 2024 Dr. Saroj Gutierrez DO Admit Provider Active Start: August 20, 2024 Dr. Saroj Gutierrez DO Attending Provider Active Start: August 20, 2024 Team Status: Active Member Role Status Dates MELY DUARTE Primary Care Provider Active Team Status: Inactive Member Role Status Dates Dr. Kaushik Brown DO Emergency Provider Active Start: August 20, 2024 End: August 23, 2024 Dr. Saroj Gutierrez DO Admit Provider Active Start: August 20, 2024 End: August 23, 2024 Dr. Saroj Gutierrez DO Other Provider Active Start: August 20, 2024 End: August 23, 2024 Dr. Mao Muse MD Attending Provider Active Start: August 20, 2024 End: August 23, 2024 Dr. Tello Borrego MD Other Provider Active Start: August 20, 2024 End: August 23, 2024 Dr. Kerline Miranda MD Other Provider Active Start: August 20, 2024 End: August 23, 2024 MELY DUARTE Primary Care Provider Active Start: August 20, 2024 End: August 23, 2024 Team Status: Active Member Role Status Dates No Primary Care Physician Primary Care Provider Active Start: August 21, 2024 Dr. Kaushik Brown DO Emergency Provider Active Start: August 21, 2024 Dr. Saroj Gutierrez DO Admit Provider Active Start: August 21, 2024 Dr. Saroj Gutierrez DO Other Provider Active Start: August 21, 2024 Dr. Mao Muse MD Attending Provider Active Start: August 21, 2024 Dr. Mao Muse MD Other Provider Active Sta rt: August 21, 2024 Dr. Steve Ocampo MD Other Provider Active Start: August 21, 2024 Dr. Joesph Syed MD Other Provider Active Start: August 21, 2024 Dr. Manas Osman MD Other Provider Active Star t: August 21, 2024 Dr. Lance Bonner DO Other Provider Active Start : August 21, 2024 Dr. Darnell Mora MD Other Provider Active Sta rt: August 21, 2024 Dr. Spencer Donnelly MD Other Provider Active St art: August 21, 2024 Dr. Maximiliano Cole MD Other Provider Active S tart: August 21, 2024 Dr. Aileen Abdi MD Other Provider Active Start: August 21, 2024 Dr. Lio Lucas MD Other Provider Active Start : August 21, 2024 Dr. Baljinder Gordon MD Other Provider Active Start: August 21, 2024 Dr. Kaushik Sykes MD Other Provider Active Start : August 21, 2024 Dr. Alejandra Canales MD Other Provider Active Star t: August 21, 2024 Dr. Chrissy Bledsoe MD Other Provider Active Sta rt: August 21, 2024 Dr. Dyana Vasquez MD Other Provider Active Sta rt: August 21, 2024 Dr. Renato Mcginnis MD Other Provider Active Star t: August 21, 2024 Dr. Lucian Hernandez MD Other Provider Active St art: August 21, 2024 Dr. Jose Langley MD Other Provider Active Star t: August 21, 2024 Dr. Triston Ruggiero , DO Other Provider Active St art: August 21, 2024 Dr. Shi Ramos MD Other Provider Active Start: August 21, 2024 Dr. Migue Owens MD Other Provider Active St art: August 21, 2024 Dr. Froilan Dan DO Other Provider Active Start: August 21, 2024 Dr. Jose Dumont MD Other Provider Active Star t: August 21, 2024 Dr. Carl Marcos MD Other Provider Active Sta rt: August 21, 2024 Team Status: Active Member Role Status Dates No Primary Care Physician Primary Care Provider Active Start: August 22, 2024 Dr. Kaushik Brown DO Emergency Provider Active Start: August 22, 2024 Dr. Saroj Gutierrez , Admit Provider Active Start: August 22, 2024 Dr. Saroj Gutierrez DO Other Provider Active Start: August 22, 2024 Dr. Mao Muse MD Attending Provider Active Start: August 22, 2024 Dr. Mao Muse MD Other Provider Active Sta rt: August 22, 2024 Dr. Tello Borrego MD Other Provider Active Start: August 22, 2024 Dr. Kerline Miranda MD Other Provider Active Start: August 22, 2024 Team Status: Active Member Role Status Dates Dr. Kaushik Brown DO Emergency Provider Active Start: August 23, 2024 Dr. Saroj Gutierrez , Admit Provider Active Start: August 23, 2024 Dr. Saroj Gutierrez DO Other Provider Active Start: August 23, 2024 Dr. Mao Muse MD Attending Provider Active Start: August 23, 2024 Dr. Mao Muse MD Other Provider Active Sta rt: August 23, 2024 Dr. Tello Borrego MD Other Provider Active Start: August 23, 2024 Dr. Kerline Miranda MD Other Provider Active Start: August 23, 2024 MELY DUARTE Primary Care Provider Active Start: August 23, 2024 Goals (unrecognized section and content) Goals may be documented in a n alternate sectionGoals may be documented in an alternate sectionGoals may be documented in an alternate section FOR RECORDS PERTAINING TO PATIENTS WHO ARE OR HAVE BEEN ENROLLED IN A CHEMICAL DEPENDENCY/SUBSTANCEABUSE PROGRAM, SOME INFORMATION MAY BE OMITTED. This clinical summary was aggregated from multiple sources. Caution should be exercised in using it in the provision of clinical care. This summary normalizes information from multiple sources, and as a consequence, information in this document may materially change the coding, format and clinical context of patient data. In addition, data may be omitted in some cases. CLINICAL DECISIONS SHOULD BE BASED ON THE PRIMARY CLINICAL RECORDS. [facility]. provides no warranty or guarantee of the accuracy or completeness of information in this document.
--- NOTE | 2024-10-13 21:33 | CT_ITS ---
PROCEDURE: ABDOMEN/PELVIS WITHOUT CONT 10/13/2024 REASON FOR EXAM: PAIN TECHNIQUE: Abdomen and pelvis CT without intravenous contrast. Noncontrast technique limits evaluation of the abdominal and pelvic viscera. Coronal and Sagittal reconstruction series were provided. One or more dose reduction techniques were used (e.g., Automated exposure control, adjustment of the mA and/or kV according to patient size, use of iterative reconstruction technique). PATIENT PREPARATION: Per protocol ORAL CONTRAST TYPE: None. COMPARISON: None. FINDINGS: The peripheral soft tissues are unremarkable. Degenerative changes of the spine. Mild atherosclerosis. Normal caliber abdominal aorta. IVC filter is present within the caval lumen. The liver is unremarkable. The gallbladder is absent. The pancreas, spleen, and adrenals are unremarkable. Bilateral kidney atrophy. No hydronephrosis. Urinary bladder wall thickening. Normal caliber large and small bowel. Dense colonic stool. CT/Abdomen/Pelvis without Cont IMPRESSION: Urinary bladder wall thickening which may represent detrusor muscle hypertrophy or cystitis. Correlate with urinalysis. Dense colonic stool which may suggest constipation. IVC filter. If not actively managed by Interventional Radiology, consider cons ult. Reading Location: [place] [id number]
[2024-10-13 21:41] LABS: White Blood Cells >100 SEEN /hpf (0-5)
[2024-10-13 22:00] VITALS: BP 135/62; PULSE 89; RESP 14; TEMP 36.3; O2SAT 95
[2024-10-13] MEDS: Piperacil/Tazobactam 3.375 GM in 0.9% Normal Saline (50mL MB+) 50 ML IV (22:09)
[2024-10-13 23:00] VITALS: BP 136/68; PULSE 70; RESP 12; TEMP 36.6; O2SAT 95
--- NOTE | 2024-10-13 23:44 | PCM.HP.STD ---
HPI - General General Date of Admission: 10/13/24 Date of Service: 10/13/24 Chief Complaint: Altered mental status with recent UTI diagnosis HPI Narrative PATITO PORRAS, is a 74 M who presented to the emergency department at [facility] on 10/13/2024 with his due to altered mental status. Patient was recently diagnosed with urinary tract infection and placed on outpatient ciprofloxacin. He was evaluated by his PCP several days ago and was placed on ciprofloxacin at that time. His indicated that she felt his fevers had improved but he relapsed today and is having intermittent altered mental status and hallucinations as well as some generalized weakness. Patient is did show the ER physician a text message which demonstrated Pseudomonas however sensitivities were not identified at that time. Patient states he has been urinating and eating and drinking okay. Denies any nausea or vomiting. Patient is relatively bedbound at baseline. He denies wearing CPAP nocturnally. Vital signs on presentation showed a temperature of 98, heart rate 84, respiratory 16, blood pressure 116/60 and pulse ox is 97% on room air. CBC on presentation shows a normal white count with no anemia. There is no left shift. His CO2 is less than 20 and his BUN is 20 one of his serum creatinine of 1.96 (baseline fluctuates but lately has been between 1.4 and 1.9). Glucose was 239 and lactic acid was 3.7. His UA is suggestive of infection and dehydration with specific gravity of 1.02 he has occult blood, leuk esterase, white cells but no bacteria present however he has been on antibiotics as noted above. CT of the abdomen pelvis was performed and shows urinary bladder wall thickening, dense colonic stool and an IVC filter. He was given IV fluids and placed on Zosyn x 1 dose. He does meet sepsis criteria with an elevated lactic acid and the low serum bicarb with altered mental status so sepsis protocol was initiated with conservative fluid bolus given concern for volume overload. [facility] Medical History CKD (chronic kidney disease), stage III Insulin dependent diabetes mellitus Dementia Kidney disease Gout Dementia Diabetes HTN (hypertension) Home Medications ?Medication ?Instructions ?Recorded ?Last Taken ?Type allopurinol 100 mg tablet 100 mg PO DAILYCM 05/03/13 Unknown History gabapentin 800 mg tablet 800 mg PO TIDCM 12/31/13 Unknown History cmmykpfx-ufd-yozkz acid 0.4 1 ea PO DAILY 05/03/13 Unknown History mg-lycopene 300 mcg-lutein 250 mcg tablet (Centrum Silver) donepezil 10 mg tablet 10 mg PO QHS 03/18/24 Unknown History dulaglutide 3 mg/0.5 mL 3 mg subcut QWEEK 03/18/24 Unknown History subcutaneous pen injector (Trulicity) duloxetine 60 mg capsule,delayed 60 mg PO DAILY 03/18/24 Unknown History release empagliflozin 25 mg tablet 25 mg PO DAILY 03/18/24 Unknown History (Jardiance) ezetimibe 10 mg tablet 10 mg PO DAILY 03/18/24 Unknown History glipizide 10 mg tablet, extended 10 mg PO DAILY 03/18/24 Unknown History release 24 hr levothyroxine 50 mcg tablet 50 mcg PO DAILY 03/18/24 Unknown History lisinopril 2.5 mg tablet 2.5 mg PO DAILY 03/18/24 Unknown History pramipexole 0.125 mg tablet 0.125 mg PO BID 03/18/24 Unknown History quetiapine 50 mg tablet 50 mg PO DAILY 03/18/24 Unknown History tramadol 50 mg tablet 50 mg PO 4X/DAY pain 03/18/24 Unknown History cefdinir 300 mg capsule 300 mg PO BID 4 days #8 caps 08/23/24 Unknown Rx tizanidine 2 mg tablet 4 mg (2 x 2 mg) PO QPM PRN muscle 08/23/24 Unknown Rx spasms #0 tabs trazodone 50 mg tablet 50 mg PO DAILY@1700 #0 tabs 08/23/24 Unknown Rx trazodone 50 mg tablet 50 mg PO QHS #0 tabs 08/23/24 Unknown Rx insulin glargine 100 unit/mL (3 75 unit subcut QPM 10/13/24 Unknown History mL) subcutaneous pen (Basaglar KwikPen U-100 Insulin) Allergy/AdvReac Type Severity Reaction Status Date / Time ibuprofen AdvReac Abd Verified 10/13/24 17:49 cramps/diarrhea unable to obtain Surgical History History of left shoulder replacement H/O knee surgery Social History (Updated 10/14/24 @ 01:[address] Bisi Rivera DO) household members: spouse housing: house current occupational status: retired Smoking Status: Never smoker alcohol intake: never substance use type: does not use ROS Constitutional Constitutional: Reports fatigue and weakness; Denies anorexia, change in weight, chills, fever(s), malaise, night sweats or other Eyes Eyes: Denies blurry vision, change in eye color, change in vision, discharge from eye(s), double vision, erythema, eye pain, loss of vision or other ENT HEENT: Denies abnormal hearing, dysphagia, ear pain, epistaxis, headache(s), hearing loss, nasal congestion, nasal discharge, post nasal drip, sinus pressure, sore throat or other Cardiovascular Cardiovascular: Denies chest pain, claudication, dyspnea on exertion, edema, lightheadedness, orthopnea, palpitations, paroxysmal nocturnal dyspnea, rapid heart rate, syncope or other Respiratory/Chest Respiratory/Chest: Denies cough, dyspnea, excessive phlegm production, hemoptysis, productive cough, shortness of breath at rest, shortness of breath with exertion, wheezing or other Gastrointestinal Gastrointestinal: Denies abdominal pain, coffee ground emesis, constipation, diarrhea, dyspepsia, hematemesis, hematochezia, loose stools, melena, nausea, vomiting or other Genitourinary Genitourinary: Denies burning urination, difficulty urinating, dysuria, hematuria, nocturia, urinary frequency, urinary hesitancy, urinary incontinence, urinary urgency or other Musculoskeletal Musculoskeletal: Reports back pain; Denies arthralgias, joint pain, joint stiffness, joint swelling, myalgias, neck pain or other Neurologic Neurologic: Reports confusion; Denies abnormal gait, abnormal speech, disequilibrium, dizziness, focal weakness, headache(s), numbness, paresthesias, seizure-like activity, seizures, syncope, tingling, tremor(s) or other Psychiatric Psychiatric: Denies anxiety, depression, homicidal ideation, suicidal ideation or other Endocrine Endocrinology: Denies change in body appearance, cold intolerance, excessive sweating, heat intolerance, polydipsia, polyuria or other Hematologic/Lymphatic Hematologic/Lymphatic: Denies anemia, easy bleeding, easy bruising, lymphadenopathy or other Allergic/Immunologic Allergic/Immunologic: Denies rhinitis, hives, eczemia, asthma or other Vital Signs Vital Signs Vital Signs: 10/13/24 17:47 10/13/24 20:29 10/13/24 21:00 Temperature 98 F 97.6 F L 97.8 F Temperature Source Oral Oral Oral Pulse Rate 84 87 73 Respiratory Rate 16 18 16 Blood Pressure 116/60 114/71 137/72 H Blood Pressure Mean 78 85 93 Pulse Ox 97 96 96 Oxygen Delivery Method Room Air Room Air Room Air 10/13/24 22:00 10/13/24 23:00 Temperature 97.4 F L 97.9 F Temperature Source Oral Oral Pulse Rate 89 70 Respiratory Rate 14 12 Blood Pressure 135/62 H 136/68 H Blood Pressure Mean 86 90 Pulse Ox 95 95 Oxygen Delivery Method Room Air Room Air Weight Weight: 136.9 kg Body Mass Index (BMI) 44.5 Physical Exam Const alert, no apparent distress and well nourished; Negative for oriented x3, average body habitus or healthy appearing Constitutional Narrative: Morbidly obese, white male, lying in bed, appears comfortable, oriented to self and place but not time General Appearance: cooperative HEENT normocephalic, head/scalp atraumatic, hearing grossly normal bilaterally and moist oral mucous membranes HEENT Narrative: Mallampati is 4, no thrush, edentulous Eyes conjunctivae normal Eyes Narrative: No scleral icterus Neck supple Neck Narrative: Neck is short and thick, trachea midline Resp normal respiratory effort, no retractions and clear to auscultation bilaterally Resp Narrative: Diminished diffusely with difficult exam due to body habitus Auscultation: Negative for rales, rhonchi or wheezes Cardio regular rate, regular rhythm, S1 normal heart sound, S2 normal heart sound, no murmurs, no rub, no gallops and no clicks Cardio Narrative: Distant due to body habitus GI normal to inspection, nondistended, normoactive bowel sounds, soft to palpation and non-tender GI Narrative: Large protuberant abdomen, umbilical hernia noted Extremity Extremity Narrative: Chronic bilateral lower extremity edema trace to 1+, no cyanosis or clubbing Skin skin turgor normal, no jaundice, no petechiae and no mottling Skin Narrative: Skin bilateral lower extremities consistent with chronic venous stasis Neuro moves all extremities and no focal motor deficits Neuro Narrative: Severe generalized weakness and marked mobility limitations Speech: speech normal Psych Psych Narrative: Pleasant with mild confusion, appears calm Results Lab / Micro Data 10/13/24 20:33 10/13/24 20:33 Labs: Laboratory Results - last 24 hr 10/13/24 20:33: WBC 8.1, RBC 4.59 L, Hgb 14.0, Hct 42.8, MCV 93.2, MCH 30.5, MCHC 32.7, RDW Std Deviation 50.2 H, RDW Coeff of Veronica 14.6, Plt Count 142 L, MPV 9.1, Immature Gran % (Auto) 1.000 H, Neut % (Auto) 67.1, Lymph % (Auto) 21.5, Terry % (Auto) 6.6, Eos % (Auto) 2.9, Baso % (Auto) 0.9, Absolute Neuts (auto) 5.5, Absolute Lymphs (auto) 1.75, Nucleated RBC % 0, Sodium 135, Potassium 4.3, Chloride 101, Carbon Dioxide 19.3 L, Anion Gap 15, BUN 21 H, Creatinine 1.96 H, Estim Creat Clear Calc 44.76 L, Est GFR (MDRD) Non-Af 35 L, BUN/Creatinine Ratio 10.7, Glucose 239 H, Lactic Acid 3.7 H*, Calcium 8.9, Urine Color Yellow, Urine Clarity Turbid, Urine pH 6.0, Ur Specific [place] 1.020, Urine Protein 100 H, Urine Glucose (UA) 1000 H, Urine Ketones Negative, Urine Occult Blood 150 H, Urine Nitrite Negative, Urine Bilirubin Negative, Urine Urobilinogen Normal, Ur Leukocyte Esterase 500 H, Urine RBC 0 SEEN, Urine WBC >100 SEEN, Ur Squamous Epith Cells 0 SEEN, Urine Bacteria 0 SEEN, Urine Mucus 0 SEEN Imaging Radiology Impression Abdomen/Pelvis CT 10/13/24 21:33 IMPRESSION: Urinary bladder wall thickening which may represent detrusor muscle hypertrophy or cystitis. Correlate with urinalysis. Dense colonic stool which may suggest constipation. IVC filter. If not actively managed by Interventional Radiology, consider consult. Reading Location: [place] [address] Assessment & Plan Assessment/Plan (1) Sepsis: (2) Lactic acidosis: (3) Acute metabolic encephalopathy: (4) UTI (urinary tract infection): PLAN: Plan Sepsis secondary to urinary tract infection - Patient had been on outpatient ciprofloxacin and culture was sent to showing Pseudomonas without sensitivities - On presentation had altered mentation, low serum bicarb less than 20, and lactic acidosis - Sepsis protocol pursued with decreased fluid resuscitation due to concern for volume overload - Zosyn given the emergency department will utilize meropenem on the floor - Blood and urine cultures are pending-await finalization of cultures and narrow antibiotics as able - Given patient's hemodynamic stability and lack of ICU beds patient was admitted to PCU for ongoing medical care with close monitoring of vital signs - Prior to leaving the emergency department he had received his fluid boluses and antibiotics and lactate had cleared so I do feel he remains appropriate for PCU status Lactic acidosis - 3.7 on presentation secondary above - Cycle for sepsis protocol--> repeat was due prior to bed availability and had normalized to 1.6 with treatment the emergency department Toxic/metabolic encephalopathy with hallucinations - Had been intermittent at home and seem to be more associate with fevers - Able to engage in conversation appropriately - Does have baseline dementia - Should improve with treatment of UTI History of gout - Continue home allopurinol Hyperlipidemia - Continue home Zetia Carotid artery stenosis - Last carotid duplex in 2012 shows mild bilateral (less than 50%) stenosis - Continue treatment as ordered - Outpatient follow-up CKD stage IIIb - Serum creatinine baseline appears to run between 1.4 and 1.9 - Currently 1.96 next-patient will be receiving IV fluids for sepsis - Repeat in a.m. next-avoid nephrotoxin DM-2 - Hold home Trulicity - Continue home Jardiance - Continue home Basaglar 75 units nightly - Hold home glipizide - SSI with Accu-Cheks as ordered - Cardiac/carb controlled diet - Will hold home low-dose lisinopril now for elevated serum creatinine--> suspect on this for renal protection his dose is 2.5 mg daily and patient does not seem to carry diagnosis of hypertension at baseline Diabetic neuropathy - continue home gabapentin but given renal dysfunction will decrease from 800 3 times daily to 400 3 times daily - May need permanent alteration at discharge depending on renal function Chronic pain - Continue home Ultram - Continue home tizanidine Hypothyroidism - Continue levothyroxine Restless leg syndrome - Continue home Mirapex Depression - Continue home duloxetine - Continue home Seroquel Insomnia - Continue home trazodone Morbid obesity -BMI 46.6 -Recommend weight loss next-complicates treatment, prognosis, outcomes -patient denies diagnosis of obstructive sleep apnea however it is significant he may carry the diagnosis and would benefit from outpatient polysomnography DVT prophylaxis -subcu heparin 3 times daily CODE STATUS - DNR CCA with no intubation Sepsis Attestation Sepsis Alert: Yes Sepsis Attestation: Agree w/Sepsis Date exam was performed: 10/13/24 Time exam was performed: 23:51 Possible Source of Sepsis: Genitourinary Sepsis Organ Dysfunction Criteria Present: Lactic Acid > 2 mmol/L, Serum CO2 < 20 mmol/L (on BMP) and New/Unexplained change in mental status Fluid Resuscitation Fluid Resuscitation ordered: Lesser volume fluid bolus ordered Amount of fluid ordered: 2,500 Reason for lesser fluid bolus:: Concern for fluid overload Charges/Coding Visit Charges Inpatient E&M: 28472 Init Hosp L3
[2024-10-14] VITALS (9 sets, daily range): BP systolic 127–165; BP diastolic 45–111; PULSE 68–97; RESP 14–19; TEMP 36.5–36.8; O2SAT 96–100; BMI 44.6; BMI 45.1
--- OUTSIDE RECORDS SUMMARY | 2024-10-14 00:24 | XMS RPT_ITS | CCD ---
Author Organization [facility]ini[facility] Care Team Providers Care Land Manager Name Role Phone MAO ABBASI Unavailable SHEILA [...] Tony Attending Unavailable Maryan Tony Attending Unavailable Sunita Barnes Attending Unavailable Maryan Tony Attending Unavailable Ericka Cassidy Primary Care Provider MD [facility] Emergency Provider MD Verito Devi I Admit Provider MD Verito Devi I Attending Provider Ericka Cassidy Primary Care Provider MD [facility] Emergency Provider MD Verito Devi I Admit Provider MD Verito Devi I Attending Provider MD Charisse Valencia Other Provider MD Armen Carl Other Provider [facility] Other Provider DO Naresh Sainz Admit Provider DO Emeli Naresh E Attending Provider Devika Stein Primary Care Provider [facility] [place] Other Provider DEVIKA STEIN Primary Care Unavailable STEINDEVIKA Attending Unavailable PROVIDER, UNKNOWN Surgeon Unavailable ERICKA CASSIDY Primary Care Unavailabl e KINNEAR, DO LOUIS Admitting Unavaila ble KINNEAR, DO LOUIS Attending Unavaila ble PROVIDER, UNKNOWN Surgeon Unavailable PROVIDER, UNKNOWN Surgeon Unavailable Errol Silva Referring Unavailable Errol Silva Attending Unavailable Naresh Sainz Admitting Unavailable Naresh Sainz Attending Unavailable Devika Stein Primary Care Unavailable [facility] [place] Consulting Unavailable Ericka Cassidy Primary Care Unavailable Verito Devi I Admitting Unavailable Verito Devi I Attending Unavailable Charisse Valencia Consulting Unavailable Armen Carl Consulting Unavailable [facility] Consulting Unavailable Care Physician, No Primary Primary Care Provider Unavailable Dr. Kaushik Brown DO Emergency Provider Dr. Saroj Gutierrez DO Admit Provider Dr. [...] Spencer Consulting Unavailable Maximiliano Cole Consulting Unavailable Alieen Abdi Consulting Unavailab Lio Moreno Consulting Unavailable Baljinder Gordon Consulting Unavailable Kaushik Sykes Consulting Unavailable Parker, Alejandra Consulting Unavailable Aljundi, Lamia Consulting Unavailable Vasquez, Dyana Consulting Unavailable Rahel, Renato Consulting Unavailable Irukulla, Lucian Consulting Unavailable Korin, Jose Consulting Unavailable Dhesi, Triston Consulting Unavailable Ramos, Sujoy Consulting Unavailable Worthington, Soleyah Consulting Unavailable Fernstrom, Froilan Consulting Unavailable Tim, Jose Consulting Unavailable Carl Marcos Consulting Unavailable Aviva Brandt Attending Unavailable Care Physician, No Primary Primary Care Unava ilable Saroj Gutierrez Consulting Unavailable Saroj Gutierrez Admitting Unavailable [facility] Primary Care Unavailable Mao Muse Attending Unavailable Tello Borrego Consulting Unavailable Kerline Miranda Consulting Unavailable Micha KRUSE, Dr. Cavanaugh Attending Provider Dr. Tello Borrego MD Other Provider Ruben KRUSE, Dr. Churchill Other Provider [facility] Primary Care Provider Dr. Mao Muse MD Other Provider Damaris KRUSE, Dr. Wilson Other Provider Dr. Joesph Syed MD Other Provider Dr. Manas Osman MD Other Provider Dr. Lance Bonner DO Other Provider [phone] Dr. Darnell Mora MD Other Provider Dr. Spencer Donnelly MD Other Provider Dr. Maximiliano Cole MD Other Provider Jin KRUSE, Dr. Gallagher Other Provider [phone] Dr. Lio Lucas MD Other Provider Evan KRUSE, Dr. Gale Other Provider [phone] Onel KRUSE, Dr. Faulkner Other Provider [phone] Parker KRUSE, Dr. Roberts Other Provider Ladi KRUSE, Dr. Lowe Other Provider [facility] Vasquez MD, Dr. Turpin Other Provider [phone] Rahel KRUSE, Dr. Gross Other Provider [phone] Mary KRUSE, Dr. Epstein Other Provider Korin KRUSE, Dr. Garcia Other Provider Monik MARCOS, Dr. Goldstein Other Provider Rachel KRUSE, Dr. Osullivan Other Provider Graciela KRUSE, Dr. Camarena Other Provider Dr. Froilan Dan DO Other Provider Tim KRUSE, Dr. Garcia Other Provider [phone] Hemant KRUSE, Dr. Henry Other Provider [phone] Allergies Allergy Classification Reported Allergen(s) Allergy Type Date of Onset Reaction(s) Facility (12 sources) ibuprofen; Translations: [Ibuprofen] drug allergy 06-02-2022 [facility] (3 sources) Ibuprofen Drug Allergy 07-02-2021 [facility] Repository Medications Current Medications Medication Drug [...] June 02, 2022 12:00am 168 hr cloNIDine 0.18632 mg/hr transdermal system (4 sources) Central alpha-2 [...] Start: 11-24-2017 take 2 tablets by mo [facility] once daily Glipizide (Glucotrol) 5 MG tablet [...] 01, 2022 12:00am June 01, 2022 1:15am Xcrixcsn-Ljq-Av-Lyc open-Lutein (Centrum Silver Tablet) 1 EACH tablet (2 sources) Start: 05-03-2013 Ehxomgxr-Qzg-Ec-Ly copen-Lutein (Centrum Silver Tablet) 1 EACH tablet Active 1 NMA PO DAILY May 03, 2013 1:00am Start: 05-03-2013 Lltoifqb-Cwq-R o-Eorpgzb-Fbetaj (Centrum Silver Tablet) 1 EACH tablet Active 1 EACH PO DAILY May 03, 2013 1:00am polyethylene glycol 3350 18778 mg powder for oral solution (2 sources) [...] 2018 12:00am take 2 tablets by mo [facility] at bedtime Pramipexole dihydrochloride 0.125 MG Oral [...] 24, 2017 11:00pm May 17, 2018 3:05pm [id number] 200 actuat albuterol 0.09 mg/actuat metered dose [...] meals blood sugar blood sugar Oral Active Kibokopw-Okg-Sf-Lycopen-Lute in (Centrum Silver) 1 EACH tablet (4 sources) Start: 11-24-2017 End: 04-19-2022 take 1 tablet by mouth once daily Fdvrzukw-Wpq-Vq-Lycopen-Lutein (Centrum Silver) 1 EACH tablet Discontinued 1 EACH PO Daily November 23, 2017 11:00pm April 19, 2022 12:42am Start: 05-03-2013 take 1 tablet by brooks th once daily Aooecugl-Hpr-Hs-Lycopen-Lutein (Centrum Silver) 1 EACH tablet Active 1 [...] sources) Long-term current use of anticoagulant; Translations: [[facility] (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 of anticoagulants] 04-23-2022 Episodic Other [...] at this office, She is now with [employer] and will come to your house. If you have any issues with your scheduled time please contact them at [phone]. 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 Normal [facility] Comment on above: Performed By: #### L 101.9900, L100.0100, L500.2500, L501.6710 #### [facility] [address] [place], [address] Basic Metabolic Profile (BMP )on 08-24-2024 BUN Normal 4-[address] [facility] Comment on above: Result Comment: Canc elled via OM: Order cancelled - Patient discharged Performed By: #### L 100.0100, L500.2500 #### [facility] [address] [place], [address] BUN/CRE Normal 10-[address] [facility] Comment on above: Result Comment: Canc elled via OM: Order cancelled - Patient discharged Performed By: #### L 100.0100, L500.2500 #### [facility] [address] [place], [address] Calcium Normal 7.6-11.[address] [facility] Comment on above: Result Comment: Canc elled via OM: Order cancelled - Patient discharged Performed By: #### L 100.0100, L500.2500 #### [facility] [address] [place], [address] CL Normal 98-[address] [facility] Comment on above: Result Comment: Canc elled via OM: Order cancelled - Patient discharged Performed By: #### L 100.0100, L500.2500 #### [facility] [address] [place], [address] CO2 Normal 21.0-32.[address] [facility] Comment on above: Result Comment: Canc elled via OM: Order cancelled - Patient discharged Performed By: #### L 100.0100, L500.2500 #### [facility] [address] [place], [address] CREAT,SERUM Normal 0.70-1.[address] [facility] Comment on above: Result Comment: Canc elled via OM: Order cancelled - Patient discharged Performed By: #### L 100.0100, L500.2500 #### [facility] [address] [place], [address] eGFR Normal >[address] [facility] Comment on above: Result Comment: Canc elled via OM: Order cancelled - Patient discharged Performed By: #### L 100.0100, L500.2500 #### [facility] [address] [place], [address] GAP Normal 5-[address] [facility] Comment on above: Result Comment: Canc elled via OM: Order cancelled - Patient discharged Performed By: #### L 100.0100, L500.2500 #### [facility] [address] [place], [address] GLU Normal 70-[address] [facility] Comment on above: Result Comment: Canc elled via OM: Order cancelled - Patient discharged Performed By: #### L 100.0100, L500.2500 #### [facility] [address] [place], [address] Potassium Normal 3.3-5.[address] [facility] Comment on above: Result Comment: Canc elled via OM: Order cancelled - Patient discharged Performed By: #### L 100.0100, L500.2500 #### [facility] [address] [place], [address] Basic Metabolic Profile (BMP) Normal 133-[address] [facility] Comment on above: Result Comment: Canc elled via OM: Order cancelled - Patient discharged Performed By: #### L 100.0100, L500.2500 #### [facility] [address] [place], [address] CBC W/Diff, Automatedon 04-2 Absolute Neut Normal 2.0-7.[address] [facility] Comment on above: Result Comment: Canc elled via OM: Order cancelled - Patient discharged Performed By: #### L 100.0100, L500.2500 #### [facility] [address] [place], [address] HCT Normal 40-[address] [facility] Comment on above: Result Comment: Canc elled via OM: Order cancelled - Patient discharged Performed By: #### L 100.0100, L500.2500 #### [facility] [address] [place], [address] HGB Normal 13.0-16.[address] [facility] Comment on above: Result Comment: Canc elled via OM: Order cancelled - Patient discharged Performed By: #### L 100.0100, L500.2500 #### [facility] [address] [place], [address] MCH Normal 27.0-32.[address] [facility] Comment on above: Result Comment: Canc elled via OM: Order cancelled - Patient discharged Performed By: #### L 100.0100, L500.2500 #### [facility] [address] [place], [address] MCHC Normal 32-[address] [facility] Comment on above: Result Comment: Canc elled via OM: Order cancelled - Patient discharged Performed By: #### L 100.0100, L500.2500 #### [facility] [address] [place], [address] MCV Normal 80-[address] [facility] Comment on above: Result Comment: Canc elled via OM: Order cancelled - Patient discharged Performed By: #### L 100.0100, L500.2500 #### [facility] [address] [place], [address] NEUT% Normal 47-[address] [facility] Comment on above: Result Comment: Canc elled via OM: Order cancelled - Patient discharged Performed By: #### L 100.0100, L500.2500 #### [facility] [address] [place], [address] PLT Normal 150-[address] [facility] Comment on above: Result Comment: Canc elled via OM: Order cancelled - Patient discharged Performed By: #### L 100.0100, L500.2500 #### [facility] [address] [place], [address] RBC Normal 4.6-6.[address] [facility] Comment on above: Result Comment: Canc elled via OM: Order cancelled - Patient discharged Performed By: #### L 100.0100, L500.2500 #### [facility] [address] [place], [address] RDW CV Normal 11.6-14.[address] [facility] Comment on above: Result Comment: Canc elled via OM: Order cancelled - Patient discharged Performed By: #### L 100.0100, L500.2500 #### [facility] [address] [place], [address] RDW SD Normal 35.1-43.[address] [facility] Comment on above: Result Comment: Canc elled via OM: Order cancelled - Patient discharged Performed By: #### L 100.0100, L500.2500 #### [facility] [address] [place], [address] WBC Normal 4.4-11.[address] [facility] Comment on above: Result Comment: Canc elled via OM: Order cancelled - Patient discharged Performed By: #### L 100.0100, L500.2500 #### [facility] [address] [place], [address] Absolute lymphocyte countOrd ered By: Mao Muse on 08-23-2024 Lymphocytes Auto (Unsp spec) [#/Vol] 1.69 10*3/uL 0.83-4.[address] [facility] Absolute neutrophil countOrd ered By: Mao Muse on 08-23-2024 Neutrophils (Bld) [#/Vol] 3.3 10*3/uL 2.0-7.[address] [facility] Anion gap in Serum or Plasma Ordered By: Mao Muse on 08-23-2024 Anion gap [Moles/Vol] 10 mmol/L 5-15 [facility] Automated lymphocyte count a s percentage of total leukocytesOrdered By: Mao Muse on 08-23-2024 Lymphocytes/100 WBC Auto (Unsp spec) 28.5 % - [facility] BUN/creatinine ratioOrdered By: Maocooper Muse on 08-23-2024 Urea nitrogen/Creatinine [Mass ratio] 9.0 mg/mg Low 10- [facility] Basic Metabolic Profile (BMP )on 08-23-2024 BUN/CRE 9.0 RATIO Low 10- [facility] Comment on above: Performed By: #### L 101.9900, L100.0100, L500.2500, L501.6710 #### [facility] [address] [place], [address] Calcium [Mass/Vol] 8.6 mg/dL Normal 7.6-11.0 [facility] Comment on above: Performed By: #### L 101.9900, L100.0100, L500.2500, L501.6710 #### [facility] [address] [place], [address] Chloride [Moles/Vol] 105 mmol/L Normal 98-108 [facility] Comment on above: Performed By: #### L 101.9900, L100.0100, L500.2500, L501.6710 #### [facility] [address] [place], [address] CO2 [Moles/Vol] 21.6 mmol/L Normal 21.0-32.[address] [facility] Comment on above: Performed By: #### L 101.9900, L100.0100, L500.2500, L501.6710 #### [facility] [address] [place], [address] Creatinine [Mass/Vol] 1.46 mg/dL High 0.70-1.20 [facility] Comment on above: Performed By: #### L 101.9900, L100.0100, L500.2500, L501.6710 #### [facility] [address] [place], [address] ECRCL 61.10 ml/min Normal 50-[address] [facility] Comment on above: Performed By: #### L 101.9900, L100.0100, L500.2500, L501.6710 #### [facility] [address] [place], [address] GAP 10 Normal 5-[address] [facility] Comment on above: Performed By: #### L 101.9900, L100.0100, L500.2500, L501.6710 #### [facility] [address] [place], [address] GFR/1.73 sq M.predicted among non-blacks MDRD (S/P/Bld) [Vol rate/Area] 50 mL/min/{1.73_m2} Low >[address] [facility] Comment on above: Result Comment: mL/m in/1.73m2 CKD-EPI Creatinine Equation (2020) Performed By: #### L 101.9900, L100.0100, L500.2500, L501.6710 #### [facility] [address] [place], [address] Glucose [Mass/Vol] 159 mg/dL High 70-99 [facility] Comment on above: Performed By: #### L 101.9900, L100.0100, L500.2500, L501.6710 #### [facility] [address] [place], [address] Potassium [Moles/Vol] 4.0 mmol/L Normal 3.3-5.1 [facility] Comment on above: Performed By: #### L 101.9900, L100.0100, L500.2500, L501.6710 #### [facility] [address] [place], [address] Sodium [Moles/Vol] 136 mmol/L Normal 133-145 [facility] Comment on above: Performed By: #### L 101.9900, L100.0100, L500.2500, L501.6710 #### [facility] [address] [place], [address] Urea nitrogen [Mass/Vol] 13 mg/dL Normal 4-[address] [facility] Comment on above: Performed By: #### L 101.9900, L100.0100, L500.2500, L501.6710 #### [facility] [address] [place], [address] Basophil percentageOrdered B y: Maorodrigo Muse on 08-23-2024 Basophils/100 WBC (Bld) 1.0 % 0-1 [facility] Bedside Glucoseon 08-23-2024 FINGERSTICK GLU 178 mg/dL High 74-[address] [facility] Comment on above: Result Comment: NITZA GEMENT OF PATIENT CARE PER NURSING PROTOCOL Performed By: #### L 501.080 #### [facility] [address] [place], [address] FINGERSTICK GLU 148 mg/dL High 74-[address] [facility] Comment on above: Result Comment: NITZA GEMENT OF PATIENT CARE PER NURSING PROTOCOL Performed By: #### L 501.080 #### [facility] [address] [place], [address] CBC W/Diff, Automatedon 08-03 Absolute Lymph 1.69 X10 3/uL Normal 0.83-4.[address] [facility] Comment on above: Performed By: #### L 101.9900, L100.0100, L500.2500, L501.6710 #### [facility] [address] [place], [address] Absolute Neut 3.3 X10 3/uL Normal 2.0-7.[address] [facility] Comment on above: Performed By: #### L 101.9900, L100.0100, L500.2500, L501.6710 #### [facility] [address] [place], [address] Basophils/100 WBC (Bld) 1.0 % Normal 0-1 [facility] Comment on above: Performed By: #### L 101.9900, L100.0100, L500.2500, L501.6710 #### [facility] [address] [place], [address] Eosinophils/100 WBC (Bld) 5.1 % High 0-[address] [facility] Comment on above: Performed By: #### L 101.9900, L100.0100, L500.2500, L501.6710 #### [facility] [address] [place], [address] Erythrocyte distribution width (RBC) [Ratio] 14.8 % High 11.6-14.[address] [facility] Comment on above: Performed By: #### L 101.9900, L100.0100, L500.2500, L501.6710 #### [facility] [address] [place], [address] Hematocrit (Bld) [Volume fraction] 35.5 % Low 40-[address] [facility] Comment on above: Performed By: #### L 101.9900, L100.0100, L500.2500, L501.6710 #### [facility] [address] [place], [address] Hemoglobin (Bld) [Mass/Vol] 11.7 g/dL Low 13.0-16.[address] [facility] Comment on above: Performed By: #### L 101.9900, L100.0100, L500.2500, L501.6710 #### [facility] [address] [place], [address] IG% 1.000 High 0.0-0.[address] [facility] Comment on above: Result Comment: IG% - Immature Granulocytes (promyelocytes, myelocytes and metamyelocytes) > 1% indicates that a LEFT SHIFT is Present. Performed By: #### L 101.9900, L100.0100, L500.2500, L501.6710 #### [facility] [address] [place], [address] Lymphocytes/100 WBC (Bld) 28.5 % Normal 19-[address] [facility] Comment on above: Performed By: #### L 101.9900, L100.0100, L500.2500, L501.6710 #### [facility] [address] [place], [address] MCH (RBC) [Entitic mass] 30.9 pg Normal 27.0-32.[address] [facility] Comment on above: Performed By: #### L 101.9900, L100.0100, L500.2500, L501.6710 #### [facility] [address] [place], [address] MCHC (RBC) [Mass/Vol] 33.0 g/dL Normal 32-36 [facility] Comment on above: Performed By: #### L 101.9900, L100.0100, L500.2500, L501.6710 #### [facility] [address] [place], [address] MCV (RBC) [Entitic vol] 93.7 fL Normal 80-94 [facility] Comment on above: Performed By: #### L 101.9900, L100.0100, L500.2500, L501.6710 #### [facility] [address] [place], [address] Monocytes/100 WBC (Bld) 8.1 % Normal 0-10 [facility] Comment on above: Performed By: #### L 101.9900, L100.0100, L500.2500, L501.6710 #### [facility] [address] [place], [address] Neutrophils/100 WBC (Bld) 56.3 % Normal 47-[address] [facility] Comment on above: Performed By: #### L 101.9900, L100.0100, L500.2500, L501.6710 #### [facility] [address] [place], [address] Nucleated RBC (Bld) [#/Vol] 0 10*3/uL Normal 0-[address] [facility] Comment on above: Performed By: #### L 101.9900, L100.0100, L500.2500, L501.6710 #### [facility] [address] [place], [address] Platelet mean volume (Bld) [Entitic vol] 8.8 fL Normal 6.2-12.[address] [facility] Comment on above: Performed By: #### L 101.9900, L100.0100, L500.2500, L501.6710 #### [facility] [address] [place], [address] Platelets (Bld) [#/Vol] 103 10*3/uL Low 150-[address] [facility] Comment on above: Performed By: #### L 101.9900, L100.0100, L500.2500, L501.6710 #### [facility] [address] [place], [address] RBC (Bld) [#/Vol] 3.79 10*6/uL Low 4.6-6.2 [facility] Comment on above: Performed By: #### L 101.9900, L100.0100, L500.2500, L501.6710 #### [facility] [address] [place], [address] RDW SD 50.6 fl High 35.1-43.[address] [facility] Comment on above: Performed By: #### L 101.9900, L100.0100, L500.2500, L501.6710 #### [facility] [address] [place], [address] WBC (Bld) [#/Vol] 5.9 10*3/uL Normal 4.4-11.0 [facility] Comment on above: Performed By: #### L 101.9900, L100.0100, L500.2500, L501.6710 #### [facility] [address] [place], [address] Carbon dioxide, total [Moles /volume] in Central venous bloodOrdered By: Mao Muse on 08-23-2024 CO2 [Moles/Vol] 21.6 mmol/L 21.0-32.[address] [facility] Chloride assayOrdered By: Aarti Muse on 08-23-2024 Chloride [Moles/Vol] 105 mmol/L 98-108 [facility] Discharge Instructionon 08-03 Discharge Instruction [facility] Medical Records Department [address] [place] [address] Instructions for Home/Discharge Instructions 08/23/24 0847 MR#: [id number] Acct: [id number] Name: CHARLI PORRAS Rep #: [id number] : 1950 74 From: Mao Muse MD [...] MD; Dr. Tello Borrego MD Signed Normal [facility] Eosinophil percentageOrdered By: Mao Muse on 08-23-2024 Eosinophils/100 WBC (Bld) 5.1 % High 0-[address] [facility] Erythrocyte distribution wid th ratioOrdered By: Mao Muse on 08-23-2024 Erythrocyte distribution width (RBC) [Ratio] 14.8 % High 11.6-14.[address] [facility] Erythrocyte distribution wid th standard deviationOrdered By: Mao Muse on 08-23-2024 Erythrocyte distribution width (RBC) [Ratio] 50.6 fl High 35.1-43.[address] [facility] Glomerular filtration rate ( GFR) estimation/1.73 sq m using serum, plasma, or whole bOrdered By: Mao Muse on 08-23-2024 GFR/1.73 sq M.predicted among non-blacks MDRD (S/P/Bld) [Vol rate/Area] 50 mL/min/{1.73_m2} Low >[address] [facility] Comment on above: mL/min/1.73m2 CKD-EP I Creatinine Equation (2020) Glucose measurement at bedsi deOrdered By: Mao Muse on 08-23-2024 Glucose [Mass/Vol] 178 mg/dL High 74-106 [facility] Comment on above: MANAGEMENT OF PATIEN T CARE PER NURSING PROTOCOL Hematocrit Auto (Bld) [Volum e fraction]Ordered By: Mao Muse on 08-23-2024 Hematocrit (Bld) [Volume fraction] 35.5 % Low 40-[address] [facility] Hemoglobin measurementOrdere d By: Mao Muse on 08-23-2024 Hemoglobin (Bld) [Mass/Vol] 11.7 g/dL Low 13.0-16.[address] [facility] Immature granulocytes/100 WB C Auto (Bld)Ordered By: Mao Muse on 08-23-2024 Immature granulocytes/100 WBC (Bld) 1.000 % High 0.0-0.[address] [facility] Comment on above: IG% - Immature Granu locytes (promyelocytes, myelocytes and metamyelocytes) > 1% indicates that a LEFT SHIFT is Present. MCV (mean corpuscular volume ) determinationOrdered By: Mao Muse on 08-23-2024 MCV (RBC) [Entitic vol] 93.7 fL 80-94 [facility] Mean corpuscular hemoglobin (MCH) determinationOrdered By: Mao Muse on 08-23-2024 MCH (RBC) [Entitic mass] 30.9 pg 27.0-32.[address] [facility] Mean corpuscular hemoglobin concentration (MCHC) determinationOrdered By: Mao Muse on 08-23-2024 MCHC (RBC) [Mass/Vol] 33.0 g/dL 32-36 [facility] Mean platelet volume determi nationOrdered By: Mao Muse on 08-23-2024 Platelet mean volume (Bld) [Entitic vol] 8.8 fL 6.2-12.[address] [facility] Monocyte percentageOrdered B y: Mao Muse on 08-23-2024 Monocytes/100 WBC (Bld) 8.1 % 0-10 [facility] Neutrophil percentageOrdered By: Mao Muse on 08-23-2024 Neutrophils/100 WBC (Bld) 56.3 % 47-[address] [facility] Nucleated red blood cell per centageOrdered By: Mao Muse on 08-23-2024 Nucleated RBC/100 WBC (Bld) [Ratio] 0 % 0-[address] [facility] Platelet countOrdered By: Aarti Muse on 08-23-2024 Platelets (Bld) [#/Vol] 103 10*3/uL Low 150-[address] [facility] Potassium measurement (mass/ volume)Ordered By: Mao Muse on 08-23-2024 Potassium (Unsp spec) [Mass/Vol] 4.0 mmol/L 3.3-5.[address] [facility] Protein+Creatinine Ratio,Uri neon 08-23-2024 PROT:CRE RATIO 718 mg/g CRE High 0-[address] [facility] Comment on above: Performed By: #### L 101.9900, L100.0100, L500.2500, L501.6710 #### [facility] [address] [place], [address] Protein (U) [Mass/Vol] 44.6 mg/dL High 0.0-12.0 [facility] Comment on above: Performed By: #### L 101.9900, L100.0100, L500.2500, L501.6710 #### [facility] [address] [place], [address] UR CREAT 62.10 mg/dL Normal 39.00-259.[address] [facility] Comment on above: Performed By: #### L 101.9900, L100.0100, L500.2500, L501.6710 #### [facility] [address] [place], [address] RBC Auto (Bld) [#/Vol]Ordere d By: Mao Muse on 08-23-2024 RBC (Bld) [#/Vol] 3.79 10*6/uL Low 4.6-6.2 [facility] Serum creatinine measurement (mass/volume)Ordered By: Mao Muse on 08-23-2024 Creatinine [Mass/Vol] 1.46 mg/dL High 0.70-1.20 [facility] Serum glucose measurement (m ass/volume)Ordered By: Mao Muse on 08-23-2024 Glucose [Mass/Vol] 159 mg/dL High 70-99 [facility] Serum or plasma calcium maricel urement (mass/volume)Ordered By: Mao Muse on 08-23-2024 Calcium [Mass/Vol] 8.6 mg/dL 7.6-11.0 [facility] Serum or plasma urea nitroge n measurement (mass/volume)Ordered By: Mao Muse on 08-23-2024 Urea nitrogen [Mass/Vol] 13 mg/dL 4-[address] [facility] Sodium levelOrdered By: Ericka Muse on 08-23-2024 Sodium [Moles/Vol] 136 mmol/L 133-145 [facility] Urine Cultureon 08-23-2024 URC Below infection je gutierrez. Urine Culture Further studies to follow. Yeast Like Organism Cove Count 1000-10,000 Mixed Gram Positive Organisms Mixed Gram Positive Organisms MIXC Mixed contaminants. Submit a new specimen if indicated. Normal [facility] Comment on above: Performed By: #### L 501.080 #### [facility] [address] [place], [place], [address] White blood cell (WBC) count Ordered By: Mao Muse on 08-23-2024 WBC (Bld) [#/Vol] 5.9 10*3/uL 4.4-11.0 [facility] Bedside Glucoseon 08-22-2024 FINGERSTICK GLU 206 mg/dL High 74-[address] [facility] Comment on above: Result Comment: NITZA GEMENT OF PATIENT CARE PER NURSING PROTOCOL Performed By: #### L 501.080 #### [facility] [address] [place], [place], [address] FINGERSTICK GLU 194 mg/dL High 74-[address] [facility] Comment on above: Result Comment: NITZA GEMENT OF PATIENT CARE PER NURSING PROTOCOL Performed By: #### L 501.080 #### [facility] [address] [place], [address] FINGERSTICK GLU 178 mg/dL High 74-[address] [facility] Comment on above: Result Comment: NITZA GEMENT OF PATIENT CARE PER NURSING PROTOCOL Performed By: #### L 501.080 #### [facility] [address] [place], [address] FINGERSTICK GLU 160 mg/dL High 74-[address] [facility] Comment on above: Result Comment: NITZA GEMENT OF PATIENT CARE PER NURSING PROTOCOL Performed By: #### L 501.080 #### [facility] [address] [place], [address] Consultation - Infectious Dx on 08-22-2024 Consultation - Infectious Dx [facility] Medical Records Department [address] [facility] [place] [address] Consultation - Infectious Dx 08/22/24 1148 MR#: [id number] Acct: [id number] Name: CHARLI PORRAS Rep #: [id number] : 1950 74 From: Tello Borrego MD PCP: Care Physician,No Primary Status:ADM IN Location: [place] [address] Assessment Plan Assessment/Plan (1) Septic shock: PLAN: [...] performed and neg except as noted above. [facility] Medical History Kidney disease Gout Dementia Diabetes HTN (hypertension) Home Medications ???Medication ???Instructions ???Recorded ???Last Taken ???Type allopurinol 100 mg tablet 100 mg PO DAILYCM 05/03/13 Unknown History gabapentin 800 mg tablet 800 mg PO TIDCM 05/03/13 Unknown H istory mznlnvwo-yrl-qjbak acid 0.4 1 ea PO DAILY 05/03/13 [...] CC: No Primary Care Physician Signed Normal [facility] Consultation - Nephrologyon 08-22-2024 Consultation - Nephrology [facility] Medical Records Department [address] [place] [address] Consultation - Nephrology 08/22/24 1531 MR#: [id number] Acct: [id number] Name: CHARLI PORRAS Rep #: [id number] : 1950 74 From: Cassy GONZALEZ PCP: SPRING,ABHISHEK CHART SNATCHER Status:DIS IN [id number] Assessment Plan Assessment/Plan (1) MISTY (acute kidney [...] and had been following with nephrology in [place], [place]. Reviewing her recent serum creatinine trends: [...] is on hold. No acute indication for [employer]. Further orders forthcoming as hospitalization evolves, thank [...] patient has been following with nephrology in . They have not established with nephrology once moved to [facility] as patient is essentially homebound. 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 Patient does not take NSAIDs. No recent nausea or vomiting, no diarrhea [facility] Medical History Kidney disease Gout Dementia Diabetes HTN (hypertension) Home Medications ???Medication ???Instructions ???Recorded ???Last Taken ???Type allopurinol 100 mg tablet 100 mg PO DAILYCM 05/03/13 Unknown History gabapentin 800 mg tablet 800 mg PO TIDCM 05/03/13 Unknown H istory vgtntbau-nrm-ghzgj acid 0.4 1 ea PO DAILY 05/03/13 [...] no apparen (more content not included)... Normal [facility] Random urine creatinine maricel urement (mass/volume)Ordered By: Cassy Stevenson on 08-22-2024 Creatinine Unsp time (U) [Mass/Vol] 62.10 mg/dL 39.00-259.[address] [facility] Urine protein measurement (m ass/volume)Ordered By: Cassy Stevenson on 08-22-2024 Protein (U) [Mass/Vol] 44.6 mg/dL High 0.0-12.0 [facility] Urine protein/creatinine mas s ratioOrdered By: Cassy Stevenson on 08-22-2024 Protein/Creatinine (U) [Mass ratio] 718 mg/g CRE High 0-[address] [facility] Basic Metabolic Profile (BMP )on 08-21-2024 BUN/CRE 10.9 RATIO Normal 10-[address] [facility] Comment on above: Performed By: #### L 501.080 #### [facility] [address] [place], [address] Calcium [Mass/Vol] 8.0 mg/dL Normal 7.6-11.0 [facility] Comment on above: Performed By: #### L 501.080 #### [facility] [address] [place], [address] Chloride [Moles/Vol] 107 mmol/L Normal 98-108 [facility] Comment on above: Performed By: #### L 501.080 #### [facility] [address] [place], [address] CO2 [Moles/Vol] 20.3 mmol/L Low 21.0-32.[address] [facility] Comment on above: Performed By: #### L 501.080 #### [facility] [address] [place], [address] Creatinine [Mass/Vol] 1.76 mg/dL High 0.70-1.20 [facility] Comment on above: Performed By: #### L 501.080 #### [facility] [address] [place], [address] ECRCL 50.20 ml/min Normal 50-[address] [facility] Comment on above: Performed By: #### L 501.080 #### [facility] [address] [place], [address] GAP 10 Normal 5-[address] [facility] Comment on above: Performed By: #### L 501.080 #### [facility] [address] [place], [address] GFR/1.73 sq M.predicted among non-blacks MDRD (S/P/Bld) [Vol rate/Area] 40 mL/min/{1.73_m2} Low >[address] [facility] Comment on above: Result Comment: mL/m in/1.73m2 CKD-EPI Creatinine Equation (2020) Performed By: #### L 501.080 #### [facility] [address] [place], [address] Glucose [Mass/Vol] 144 mg/dL High 70-99 [facility] Comment on above: Performed By: #### L 501.080 #### [facility] [address] [place], [address] Potassium [Moles/Vol] 4.2 mmol/L Normal 3.3-5.1 [facility] Comment on above: Performed By: #### L 501.080 #### [facility] [address] [place], [address] Sodium [Moles/Vol] 137 mmol/L Normal 133-145 [facility] Comment on above: Performed By: #### L 501.080 #### [facility] [address] [place], [address] Urea nitrogen [Mass/Vol] 19 mg/dL Normal 4-[address] [facility] Comment on above: Performed By: #### L 501.080 #### [facility] [address] [place], [address] Bedside Glucoseon 08-21-2024 FINGERSTICK GLU 254 mg/dL High 74-[address] [facility] Comment on above: Result Comment: NITZA GEMENT OF PATIENT CARE PER NURSING PROTOCOL Performed By: #### L 501.080 #### [facility] [address] [place], [address] FINGERSTICK GLU 203 mg/dL High 74-[address] [facility] Comment on above: Result Comment: NITZA GEMENT OF PATIENT CARE PER NURSING PROTOCOL Performed By: #### L 501.080 #### [facility] [address] [place], [address] FINGERSTICK GLU 162 mg/dL High 74-[address] [facility] Comment on above: Result Comment: NITZA GEMENT OF PATIENT CARE PER NURSING PROTOCOL Performed By: #### L 101.9900, L100.0100, L500.2500, L501.6710 #### [facility] [address] [place], [address] CBC-Complete Blood Cnt No Di ffon 08-21-2024 Erythrocyte distribution width (RBC) [Ratio] 15.0 % High 11.6-14.[address] [facility] Comment on above: Performed By: #### L 501.080 #### [facility] [address] [place], [address] Hematocrit (Bld) [Volume fraction] 31.6 % Low 40-[address] [facility] Comment on above: Performed By: #### L 501.080 #### [facility] [address] [place], [address] Hemoglobin (Bld) [Mass/Vol] 10.7 g/dL Low 13.0-16.[address] [facility] Comment on above: Performed By: #### L 501.080 #### [facility] [address] [place], [address] MCH (RBC) [Entitic mass] 31.0 pg Normal 27.0-32.[address] [facility] Comment on above: Performed By: #### L 501.080 #### [facility] [address] [place], [address] MCHC (RBC) [Mass/Vol] 33.9 g/dL Normal 32-36 [facility] Comment on above: Performed By: #### L 501.080 #### [facility] [address] [place], [address] MCV (RBC) [Entitic vol] 91.6 fL Normal 80-94 [facility] Comment on above: Performed By: #### L 501.080 #### [facility] [address] [place], [address] Platelet mean volume (Bld) [Entitic vol] 8.7 fL Normal 6.2-12.[address] [facility] Comment on above: Performed By: #### L 501.080 #### [facility] [address] [place], [address] Platelets (Bld) [#/Vol] 103 10*3/uL Low 150-[address] [facility] Comment on above: Performed By: #### L 501.080 #### [facility] [address] [place], [address] RBC (Bld) [#/Vol] 3.45 10*6/uL Low 4.6-6.2 [facility] Comment on above: Performed By: #### L 501.080 #### [facility] [address] [place], [place], [address] RDW SD 50.4 fl High 35.1-43.[address] [facility] Comment on above: Performed By: #### L 501.080 #### [facility] [address] [place], [address] WBC (Bld) [#/Vol] 5.9 10*3/uL Normal 4.4-11.0 [facility] Comment on above: Performed By: #### L 501.080 #### [facility] [address] [place], [address] 12 Lead EKGon 08-20-2024 12 Lead EKG [facility] Cardiovascular Services [address] [place] [address] 12 Lead EKG 08/20/24 0447 MR#: [id number] Acct: [id number] Name: CHARLI PORRAS Rep #: [id number] : 1950 74 From: Cliff Robledo MD Attending Dr: Dr. Mao Muse MD Status: ADM IN Ordering Dr: Mao Muse MD Date: 08/20/24 Location: [facility] Sex: M C Admitted: 08/20/24 Test Reason [...] ECG Confirmed by CLIFF ROBLEDO MD ([id number]), video effects editor LIZETH HAMMONDS ([id number]) on 08/22/2024 9:07:07 AM Referred By: INOCENCIA Confirmed By: CLIFF ROBLEDO MD 08/22/24 0907 Date Cliff Robledo MD CC: Dr. Mao Muse MD; No Primary Care Physician Signed Normal [facility] Amorphous sediment detection in urine sediment by light microscopyOrdered By: Kaushik Brown on 08-20-2024 Amorphous sediment LM Ql (Urine sed) 1+ [facility] Basic Metabolic Profile (BMP )on 08-20-2024 BUN/CRE 10.5 RATIO Normal 10-[address] [facility] Comment on above: Performed By: #### L 500.2500 #### [facility] [address] [place], [address] Calcium [Mass/Vol] 7.7 mg/dL Normal 7.6-11.0 [facility] Comment on above: Performed By: #### L 500.2500 #### [facility] [address] [place], [address] Chloride [Moles/Vol] 105 mmol/L Normal 98-108 [facility] Comment on above: Performed By: #### L 500.2500 #### [facility] [address] [place], [address] CO2 [Moles/Vol] 21.3 mmol/L Normal 21.0-32.[address] [facility] Comment on above: Performed By: #### L 500.2500 #### [facility] [address] [place], [address] Creatinine [Mass/Vol] 1.89 mg/dL High 0.70-1.20 [facility] Comment on above: Performed By: #### L 500.2500 #### [facility] [address] [place], [address] ECRCL 46.74 ml/min Low 50-[address] [facility] Comment on above: Performed By: #### L 500.2500 #### [facility] [address] [place], [address] GAP 9 Normal 5-[address] [facility] Comment on above: Performed By: #### L 500.2500 #### [facility] [address] [place], [address] GFR/1.73 sq M.predicted among non-blacks MDRD (S/P/Bld) [Vol rate/Area] 37 mL/min/{1.73_m2} Low >[address] [facility] Comment on above: Result Comment: mL/m in/1.73m2 CKD-EPI Creatinine Equation (2020) Performed By: #### L 500.2500 #### [facility] [address] [place], [address] Glucose [Mass/Vol] 212 mg/dL High 70-99 [facility] Comment on above: Performed By: #### L 500.2500 #### [facility] [address] [place], [address] Potassium [Moles/Vol] 4.6 mmol/L Normal 3.3-5.1 [facility] Comment on above: Performed By: #### L 500.2500 #### [facility] [address] [place], [address] Sodium [Moles/Vol] 135 mmol/L Normal 133-145 [facility] Comment on above: Performed By: #### L 500.2500 #### [facility] [address] [place], [address] Urea nitrogen [Mass/Vol] 20 mg/dL High -[address] [facility] Comment on above: Performed By: #### L 500.2500 #### [facility] [address] [place], [address] Bedside Glucoseon 08-20-2024 FINGERSTICK GLU 203 mg/dL High 74-[address] [facility] Comment on above: Result Comment: NITZA FAUSTOENT OF PATIENT CARE PER NURSING PROTOCOL Performed By: #### L 501.080 #### [facility] [address] [place], [address] FINGERSTICK GLU 165 mg/dL High 74-[address] [facility] Comment on above: Result Comment: NITZA GEMENT OF PATIENT CARE PER NURSING PROTOCOL Performed By: #### L 101.9900, L100.0100, L500.2500, L501.6710 #### [facility] [address] [place], [address] FINGERSTICK GLU 181 mg/dL High 74-[address] [facility] Comment on above: Result Comment: NITZA GEMENT OF PATIENT CARE PER NURSING PROTOCOL Performed By: #### L 501.080 #### [facility] [address] [place], [address] FINGERSTICK GLU 214 mg/dL High 74-[address] [facility] Comment on above: Result Comment: NITZA GEMENT OF PATIENT CARE PER NURSING PROTOCOL Performed By: #### L 501.080 #### [facility] [address] [place], [address] Bilirubin Test strip Ql (U)O rdered By: Kaushik Brown on 08-20-2024 Bilirubin Ql (U) Negative Negative [facility] Blood cultureOrdered By: Juliano Borwn on 08-20-2024 Bacteria identified Cx Nom (Bld) No growth in [address] [facility] CBC W/Diff, Automatedon 04- Absolute Lymph 0.55 X10 3/uL Low 0.83-4.[address] [facility] Comment on above: Performed By: #### L 501.080 #### [facility] [address] [place], [address] Absolute Neut 7.6 X10 3/uL Normal 2.0-7.[address] [facility] Comment on above: Performed By: #### L 501.080 #### [facility] [address] [place], [address] Basophils/100 WBC (Bld) 0.5 % Normal 0-1 [facility] Comment on above: Performed By: #### L 501.080 #### [facility] [address] [place], [address] Eosinophils/100 WBC (Bld) 0.1 % Normal 0-[address] [facility] Comment on above: Performed By: #### L 501.080 #### [facility] [address] [place], [address] Erythrocyte distribution width (RBC) [Ratio] 14.6 % Normal 11.6-14.[address] [facility] Comment on above: Performed By: #### L 501.080 #### [facility] [address] [place], [address] Hematocrit (Bld) [Volume fraction] 37.4 % Low 40-[address] [facility] Comment on above: Performed By: #### L 501.080 #### [facility] [address] [place], [address] Hemoglobin (Bld) [Mass/Vol] 12.7 g/dL Low 13.0-16.[address] [facility] Comment on above: Performed By: #### L 501.080 #### [facility] [address] [place], [address] IG% 1.000 High 0.0-0.[address] [facility] Comment on above: Result Comment: IG% - Immature Granulocytes (promyelocytes, myelocytes and metamyelocytes) > 1% indicates that a LEFT SHIFT is Present. Performed By: #### L 501.080 #### [facility] [address] [place], [address] Lymphocytes/100 WBC (Bld) 6.3 % Low 19-[address] [facility] Comment on above: Performed By: #### L 501.080 #### [facility] [address] [place], [address] MCH (RBC) [Entitic mass] 31.1 pg Normal 27.0-32.[address] [facility] Comment on above: Performed By: #### L 501.080 #### [facility] [address] [place], [address] MCHC (RBC) [Mass/Vol] 34.0 g/dL Normal 32-36 [facility] Comment on above: Performed By: #### L 501.080 #### [facility] [address] [place], [address] MCV (RBC) [Entitic vol] 91.7 fL Normal 80-94 [facility] Comment on above: Performed By: #### L 501.080 #### [facility] [address] [place], [address] Monocytes/100 WBC (Bld) 4.9 % Normal 0-10 [facility] Comment on above: Performed By: #### L 501.080 #### [facility] [address] [place], [address] Neutrophils/100 WBC (Bld) 87.2 % High 47-[address] [facility] Comment on above: Performed By: #### L 501.080 #### [facility] [address] [place], [address] Nucleated RBC (Bld) [#/Vol] 0 10*3/uL Normal 0-[address] [facility] Comment on above: Performed By: #### L 501.080 #### [facility] [address] [place], [address] Platelet mean volume (Bld) [Entitic vol] 9.3 fL Normal 6.2-12.[address] [facility] Comment on above: Performed By: #### L 501.080 #### [facility] [address] [place], [address] Platelets (Bld) [#/Vol] 126 10*3/uL Low 150-[address] [facility] Comment on above: Performed By: #### L 501.080 #### [facility] [address] [place], [address] RBC (Bld) [#/Vol] 4.08 10*6/uL Low 4.6-6.2 [facility] Comment on above: Performed By: #### L 501.080 #### [facility] [address] [place], [address] RDW SD 48.7 fl High 35.1-43.[address] [facility] Comment on above: Performed By: #### L 501.080 #### [facility] [address] [place], [address] WBC (Bld) [#/Vol] 8.7 10*3/uL Normal 4.4-11.0 [facility] Comment on above: Performed By: #### L 501.080 #### [facility] [address] [place], [address] CTA Chest W/WO Contraston CTA Chest W/WO Contrast [facility] Imaging Services [address] [place] [address] CTA Chest W/WO Contrast MR#: [id number] Acct: [id number] Name: WARDELLIOTTLARRYThaliaCHARLI Rep #: [id number] : 1950 M 74 From: Tello Garcia MD PCP: Care Physician,No Primary Status: REG ER Study: CTA Chest W/WO Contrast Date of Exam: 08/20/24 Exam# [id number] Ordering Dr: Kaushik Brown DO PROCEDURE: CTA [...] inferior vena cava filter suggested on the export manager views. Motion artifact significantly limits the evaluation. No large central or hilar saddle pulmonary embolism. Interlobar to subsegmental branches are not well evaluated. Thoracic aorta appears within limits. Three-vessel coronary calcification appears moderate. No pericardial or pleural effusion. Images of the upper abdomen appear unremarkable. [place] artifact from left shoulder replacement and anterior [...] Three-vessel coronary calcification appears moderate. Reading Location: [id number] CC: Kaushik Brown DO; No Primary Care Physician Caustic Room Operator: Signed Normal [facility] Comprehensive Metabolic Prof mton 08-20-2024 Albumin [Mass/Vol] 3.6 g/dL Normal 3.4-4.8 [facility] Comment on above: Performed By: #### L 101.9900, L100.0100, L500.2500, L501.6710 #### [facility] [address] [place], [address] Albumin/Globulin [Mass ratio] 1.1 {ratio} Normal 0.9-2.[address] [facility] Comment on above: Performed By: #### L 101.9900, L100.0100, L500.2500, L501.6710 #### [facility] [address] [place], [address] ALK PHOS 78 U/L Normal 40-[address] [facility] Comment on above: Performed By: #### L 101.9900, L100.0100, L500.2500, L501.6710 #### [facility] [address] [place], [address] ALT [Catalytic activity/Vol] 24 U/L Normal <=[address] [facility] Comment on above: Performed By: #### L 101.9900, L100.0100, L500.2500, L501.6710 #### [facility] [address] [place], [address] AST [Catalytic activity/Vol] 29 U/L Normal <=[address] [facility] Comment on above: Performed By: #### L 101.9900, L100.0100, L500.2500, L501.6710 #### [facility] [address] [place], [address] Bilirubin [Mass/Vol] 0.76 mg/dL Normal 0.00-1.30 [facility] Comment on above: Performed By: #### L 101.9900, L100.0100, L500.2500, L501.6710 #### [facility] [address] [place], [address] BUN/CRE 9.2 RATIO Low 10-[address] [facility] Comment on above: Performed By: #### L 101.9900, L100.0100, L500.2500, L501.6710 #### [facility] [address] [place], [address] Calcium [Mass/Vol] 8.8 mg/dL Normal 7.6-11.0 [facility] Comment on above: Performed By: #### L 101.9900, L100.0100, L500.2500, L501.6710 #### [facility] [address] [place], [address] Chloride [Moles/Vol] 100 mmol/L Normal 98-108 [facility] Comment on above: Performed By: #### L 101.9900, L100.0100, L500.2500, L501.6710 #### [facility] [address] [place], [address] CO2 [Moles/Vol] 19.8 mmol/L Low 21.0-32.[address] [facility] Comment on above: Performed By: #### L 101.9900, L100.0100, L500.2500, L501.6710 #### [facility] [address] [place], [address] Creatinine [Mass/Vol] 1.90 mg/dL High 0.70-1.20 [facility] Comment on above: Performed By: #### L 101.9900, L100.0100, L500.2500, L501.6710 #### [facility] [address] [place], [address] ECRCL 45.50 ml/min Low 50-[address] [facility] Comment on above: Performed By: #### L 101.9900, L100.0100, L500.2500, L501.6710 #### [facility] [address] [place], [address] GAP 14 Normal 5-[address] [facility] Comment on above: Performed By: #### L 101.9900, L100.0100, L500.2500, L501.6710 #### [facility] [address] [place], [address] GFR/1.73 sq M.predicted among non-blacks MDRD (S/P/Bld) [Vol rate/Area] 36 mL/min/{1.73_m2} Low >[address] [facility] Comment on above: Result Comment: mL/m in/1.73m2 CKD-EPI Creatinine Equation (2020) Performed By: #### L 101.9900, L100.0100, L500.2500, L501.6710 #### [facility] [address] [place], [address] Globulin (S) [Mass/Vol] 3.4 g/dL Normal 2.2-4.2 [facility] Comment on above: Performed By: #### L 101.9900, L100.0100, L500.2500, L501.6710 #### [facility] [address] [place], [address] Glucose [Mass/Vol] 245 mg/dL High 70-99 [facility] Comment on above: Performed By: #### L 101.9900, L100.0100, L500.2500, L501.6710 #### [facility] [address] [place], [address] Potassium [Moles/Vol] 5.3 mmol/L High 3.3-5.1 [facility] Comment on above: Performed By: #### L 101.9900, L100.0100, L500.2500, L501.6710 #### [facility] [address] [place], [address] Sodium [Moles/Vol] 133 mmol/L Normal 133-145 [facility] Comment on above: Performed By: #### L 101.9900, L100.0100, L500.2500, L501.6710 #### [facility] [address] [place], [address] T PROT 7.0 g/dL Normal 5.9-8.[address] [facility] Comment on above: Performed By: #### L 101.9900, L100.0100, L500.2500, L501.6710 #### [facility] [address] [place], [address] Urea nitrogen [Mass/Vol] 17 mg/dL Normal 4-[address] [facility] Comment on above: Performed By: #### L 101.9900, L100.0100, L500.2500, L501.6710 #### [facility] [address] [place], [address] Consultation - Intensiviston 08-20-2024 Consultation - Livestock Farm Manager [facility] Medical Records Department [address] [place] [address] Consultation - Livestock Farm Manager 08/20/24 0854 MR#: [id number] Acct: [id number] Name: CHARLI PORRAS Rep #: [id number] : 1950 74 From: Kaushik Sykes MD [...] renal stone in R, but no hydro. [facility] Medical History Kidney disease Gout Dementia Diabetes HTN (hypertension) Home Medications ???Medication ???Instructions ???Recorded ???Last Taken ???Type allopurinol 100 mg tablet 100 mg PO DAILYCM 05/03/13 Unknown History gabapentin 800 mg tablet 800 mg PO TIDCM 05/03/13 Unknown H istory cigmyfzg-bte-wlczl acid 0.4 1 ea PO DAILY 05/03/13 [...] Psychiatric: Denie (more content not included)... Normal [facility] Emergency Department Summary on 08-20-2024 Emergency Department Summary [facility] Medical Records Department [address] [place] [address] Emergency Department Summary 08/20/24 MR#: [id number] Acct: [id number] Name: CHARLI PORRAS Rep #: [id number] : 1950 74 From: Kaushik Brown DO [...] dementia he cannot offer any further history. [facility] Medical History Kidney disease Gout Dementia Diabetes HTN (hypertension) Home Medications ???Medication ???Instructions ???Recorded ???Last Taken ???Type allopurinol 100 mg tablet 100 mg PO DAILYCM 05/03/13 Unknown History gabapentin 800 mg tablet 800 mg PO TIDCM 05/03/13 Unknown H istory axgdijum-wwu-ubhsd acid 0.4 1 ea PO DAILY 05/03/13 [...] Source Core (more content not included)... Normal [facility] Epithelial cells.squamous LM Ql (Urine sed)Ordered By: Kaushik Brown on 08-20-2024 Epithelial cells.squamous LM.HPF (Urine sed) [#/Area] 0 /[HPF] 0-[address] [facility] Glucose Ql (U)Ordered By: Dede Brown on 08-20-2024 Glucose (U) [Mass/Vol] 1000 mg/dL High Normal [facility] H AND P Exam - Hospitaliston 08-20-2024 H&P Exam - Hospitalist [facility] Medical Records Department [address] [place] [address] H P Exam - Hospitalist 08/20/24 0220 MR#: [id number] Acct: [id number] Name: CHARLI PORRAS Rep #: [id number] : 1950 74 From: Saroj Gutierrez DO PCP: Care Physician,No Primary Status:ADM IN Location: ICU ICU01-1 HPI - General General Date of Admission: 08/20/24 Date of Service: 08/20/24 Chief Complaint: Worsening confusion with tremors and weakness HPI Narrative CHARLI PORRAS, is a 74 M who presented to [facility] ED on 08/20/2024 with worsening confusion with [...] and told me that he was at [facility]. However he could not answer any other [...] patient being moved over to the ICU. [facility] Medical History Kidney disease Gout Dementia Diabetes HTN (hypertension) Home Medications ???Medication ???Instructions ???Recorded ???Last Taken ???Type allopurinol 100 mg tablet 100 mg PO DAILYCM 05/03/13 Unknown History gabapentin 800 mg tablet 800 mg PO TIDCM 05/03/13 Unknown H istory hhyjftnm-exl-vvuoa acid 0.4 1 ea PO DAILY 05/03/13 [...] replacement H/ (more content not included)... Normal [facility] Influenza virus A and B and SARS-CoV-2 (COVID-19) and Respiratory syncytial virus RNAOrdered By: Kaushik Brown on 08-20-2024 SARS-CoV-2 (COVID-19) RNA LIV+probe Ql (Unsp spec) [facility] Ketones Test strip Ql (U)Ord ered By: Kaushik Brown on 08-20-2024 Ketones Ql (U) 5 mg/dl High Negative [facility] Kidney and Bladderon 025 Kidney and Bladder [facility] Imaging Services [address] [place] [address] Kidney and Bladder MR#: [id number] Acct: [id number] Name: CHARLI PORRAS Rep #: [id number] : 1950 M 74 From: Judy Brothers nd, MD PCP: Care Physician,No Primary Status: ADM IN Study: Kidney and Bladder Date of Exam: 08/20/24 Exam# [id number] Ordering Dr: Saroj Gutierrez DO PROCEDURE: KIDNEY AND BLADDER 08/20/2024 REASON FOR EXAM: UROSEPSIS, EVAL FOR PYELONEPHRITIS TECHNIQUE: Bilateral renal ultrasound. COMPARISON: None. FINDINGS: Kidneys: Tiny nonobstructing right midpole renal calculus. No left renal calculi. [place]: No hydronephrosis. Cysts or Masses: No cysts [...] nonobstructing right midpole renal calculus. Reading Location: [facility] CC: Dr. Saroj Gutierrez DO; No Primary Care Physician Caustic Room Operator: Signed Normal [facility] L509.7001on 08-20-2024 Procalcitonin 0.32 ng/mL High <=0.[address] [facility] Comment on above: Result Comment: Inte rpretation: [...] #### L 101.9900, L100.0100, L500.2500, L501.6710 #### [facility] [address] [place], [place], [address] Lactic Acidon 08-20-2024 Lactate [Moles/Vol] 1.4 mmol/L Normal 0.0-2.0 [facility] Comment on above: Order Comment: Y Performed By: #### L 503.6005 #### [facility] [address] [place], [address] Lactate [Moles/Vol] 3.4 mmol/L Invalid Interpretation Code 0.0-2.[address] [facility] Comment on above: Order Comment: Y Result Comment: Crit ical Result(s) Called at 0048: by: NBURNS TO LSPARR??Results read back by same. Performed By: #### L 501.080 #### [facility] [address] [place], [place], [address] Lactic acid measurementOrder ed By: Kaushik Sykes on 08-20-2024 Lactate [Moles/Vol] 1.4 mmol/L 0.0-2.0 [facility] M100.678on 08-20-2024 M100.678 SARS-CoV-2 (COVID 19 ) Negative INFLUENZA A Negative INFLUENZA B Negative RSV PCR Negative Normal [facility] Comment on above: Performed By: #### L 501.080 #### [facility] [address] [facility] [place], [place], [address] Microscopic analysis of urin e for red blood cells (RBC)Ordered By: Kaushik Brown on 08-20-2024 Microscopic analysis of urine for red blood cells (RBC) > 100 SEEN /hpf 0-[address] [facility] Urine RBC > 100 SEEN /hpf 0-[address] [facility] Mucus LM Ql (Urine sed)Order ed By: Kaushik Brown on 08-20-2024 Mucus Ql (Urine sed) RARE /hpf [facility] Nitrite Test strip Ql (U)Ord ered By: Kaushik Brown on 08-20-2024 Nitrite Ql (U) Negative Negative [facility] Partial Thromboplast Timeon 08-20-2024 aPTT Coag (Bld) [Time] 32.3 s Normal 24.1-36.2 [facility] Comment on above: Performed By: #### L 101.9900, L100.0100, L500.2500, L501.6710 #### [facility] [address] [place], [address] Protein Test strip Ql (U)Ord ered By: Kaushik Brown on 08-20-2024 Protein Ql (U) 100 mg/dl High Negative [facility] Prothrombin Time w/INRon INR Coag (PPP) [Relative time] 1.6 {INR} Normal [facility] Comment on above: Performed By: #### L 501.080 #### [facility] [address] [place], [address] PT Coag (PPP) [Time] 19.2 s High 11.7-14.9 [facility] Comment on above: Performed By: #### L 501.080 #### [facility] [address] [place], [address] Squamous epithelial cells de tection in urine sediment by light microscopyOrdered By: Kaushik Brown on 08-20-2024 Epithelial cells.squamous LM Ql (Urine sed) 0-5 SEEN /hpf 0-[address] [facility] Urinalysis, Completeon 08-20 AMORPHOUS 1+ Normal [facility] Comment on above: Order Comment: COLOR OF URINE MAY AFFECT DIPSTICK RESULTS.CATHETER SPECIMEN Performed By: #### L 501.080 #### [facility] [address] [place], [address] Mucus Ql (Urine sed) RARE Normal [facility] Comment on above: Order Comment: COLOR OF URINE MAY AFFECT DIPSTICK RESULTS.CATHETER SPECIMEN Performed By: #### L 501.080 #### [facility] [address] [place], [address] BACTERIA 2+ /hpf Normal None Seen [facility] Comment on above: Order Comment: COLOR OF URINE MAY AFFECT DIPSTICK RESULTS.CATHETER SPECIMEN Performed By: #### L 501.080 #### [facility] [address] [place], [address] EPI,SQUAMOUS 0-5 SEEN Normal 0-[address] [facility] Comment on above: Order Comment: COLOR OF URINE MAY AFFECT DIPSTICK RESULTS.CATHETER SPECIMEN Performed By: #### L 501.080 #### [facility] [address] [place], [address] RBC > 100 SEEN Normal 0-[address] [facility] Comment on above: Order Comment: COLOR OF URINE MAY AFFECT DIPSTICK RESULTS.CATHETER SPECIMEN Performed By: #### L 501.080 #### [facility] [address] [place], [address] WBC >100 SEEN Normal 0-[address] [facility] Comment on above: Order Comment: COLOR OF URINE MAY AFFECT DIPSTICK RESULTS.CATHETER SPECIMEN Performed By: #### L 501.080 #### [facility] [address] [place], [address] BILIRUBIN URINE Negative Normal Negative [facility] Comment on above: Order Comment: COLOR OF URINE MAY AFFECT DIPSTICK RESULTS.CATHETER SPECIMEN Performed By: #### L 501.080 #### [facility] [address] [place], [address] Clarity (U) Cloudy Normal Clear [facility] Comment on above: Order Comment: COLOR OF URINE MAY AFFECT DIPSTICK RESULTS.CATHETER SPECIMEN Performed By: #### L 501.080 #### [facility] [address] [place], [address] Color (U) Stephanie Normal Yellow [facility] Comment on above: Order Comment: COLOR OF URINE MAY AFFECT DIPSTICK RESULTS.CATHETER SPECIMEN Performed By: #### L 501.080 #### [facility] [address] [place], [address] GLUCOSE, UR 1000 mg/dl Abnormal Normal [facility] Comment on above: Order Comment: COLOR OF URINE MAY AFFECT DIPSTICK RESULTS.CATHETER SPECIMEN Performed By: #### L 501.080 #### [facility] [address] [place], [address] KETONE UR 5 mg/dl Abnormal Negative [facility] Comment on above: Order Comment: COLOR OF URINE MAY AFFECT DIPSTICK RESULTS.CATHETER SPECIMEN Performed By: #### L 501.080 #### [facility] [address] [place], [address] LEUK ESTERASE 500 /ul Abnormal Negative [facility] Comment on above: Order Comment: COLOR OF URINE MAY AFFECT DIPSTICK RESULTS.CATHETER SPECIMEN Performed By: #### L 501.080 #### [facility] [address] [place], [address] Nitrite Ql (U) Negative Normal Negative [facility] Comment on above: Order Comment: COLOR OF URINE MAY AFFECT DIPSTICK RESULTS.CATHETER SPECIMEN Performed By: #### L 501.080 #### [facility] [address] [place], [address] OCCULT BLOOD-UR 250 /ul Abnormal Negative [facility] Comment on above: Order Comment: COLOR OF URINE MAY AFFECT DIPSTICK RESULTS.CATHETER SPECIMEN Performed By: #### L 501.080 #### [facility] [address] [place], [address] pH UR 6.0 Normal 5.0 - 8.[address] [facility] Comment on above: Order Comment: COLOR OF URINE MAY AFFECT DIPSTICK RESULTS.CATHETER SPECIMEN Performed By: #### L 501.080 #### [facility] [address] [place], [address] PROT DIPSTX 100 mg/dl Abnormal Negative [facility] Comment on above: Order Comment: COLOR OF URINE MAY AFFECT DIPSTICK RESULTS.CATHETER SPECIMEN Performed By: #### L 501.080 #### [facility] [address] [place], [address] SP.GR. DIPSTX 1.010 Normal 1.002-1.[address] [facility] Comment on above: Order Comment: COLOR OF URINE MAY AFFECT DIPSTICK RESULTS.CATHETER SPECIMEN Performed By: #### L 501.080 #### [facility] [address] [place], [address] UROBILI Normal Normal Normal [facility] Comment on above: Order Comment: COLOR OF URINE MAY AFFECT DIPSTICK RESULTS.CATHETER SPECIMEN Performed By: #### L 501.080 #### [facility] [address] [place], [address] Urine blood detectionOrdered By: Kaushik Brown on 08-20-2024 Urine Occult Blood 250 /ul High Negative [facility] Urine clarityOrdered By: Juliano Brown on 08-20-2024 Clarity (U) Cloudy Clear [facility] Urine color determinationOrd ered By: Kaushik Brown on 08-20-2024 Color (U) Stephanie Yellow [facility] Urine cultureOrdered By: Juliano Brown on 08-20-2024 Bacteria identified Cx Nom (U) Yeast, not Callie albicans Abnormal [facility] Bacteria identified Cx Nom (U) Positive Abnormal [facility] Urine glucose detectionOrder ed By: Kaushik Brown on 08-20-2024 Glucose Ql (U) 1000 mg/dl High Normal [facility] Urine leukocyte esterase det ection by dipstickOrdered By: Kaushik Brown on 08-20-2024 Leukocyte esterase Test strip Ql (U) 500 /ul High Negative [facility] Urine pHOrdered By: Kaushik morales on 08-20-2024 pH (U) 6.0 [pH] 5.0 - 8.[address] [facility] Urine sediment bacteria coun t by microscopy (number/high power field)Ordered By: Kaushik Brown on 08-20-2024 Bacteria LM.HPF (Urine sed) [#/Area] 2 /[HPF] None Seen [facility] Urine specific gravity measu rementOrdered By: Kaushik Brown on 08-20-2024 Specific gravity (U) [Rel density] 1.010 1.002-1.[address] [facility] Urine urobilinogen measureme ntOrdered By: Kaushik Brown on 08-20-2024 Urobilinogen Ql (U) Normal mg/dl Normal [facility] Urobilinogen Ql (U)Ordered B y: Kaushik Brown on 08-20-2024 Urine Urobilinogen Normal mg/dl Normal [facility] White blood cell countOrdere d By: Kaushik Brown on 08-20-2024 Urine WBC >100 SEEN /hpf 0-[address] [facility] White blood cell count >100 SEEN /hpf 0-[address] [facility] Absolute neutrophil countOrd ered By: Kaushik Brown on 08-19-2024 Neutrophils (Bld) [#/Vol] 7.6 10*3/uL 2.0-7.[address] [facility] Activated partial thrombopla stin time (aPTT) in platelet poor plasma by coagulation aOrdered By: Kaushik Brown on 08-19-2024 aPTT Coag (PPP) [Time] 32.3 s 24.1-36.2 [facility] Anion gap in Serum or Plasma Ordered By: Kaushik Brown on 08-19-2024 Anion gap [Moles/Vol] 14 mmol/L 5-15 [facility] BUN/creatinine ratioOrdered By: Kaushik Brown on 08-19-2024 Urea nitrogen/Creatinine [Mass ratio] 9.2 mg/mg Low 10-[address] [facility] Basophil percentageOrdered B y: Kaushik Brown on 08-19-2024 Basophils/100 WBC (Bld) 0.5 % 0-1 [facility] Bilirubin, totalOrdered By: Kaushik Brown on 08-19-2024 Bilirubin [Mass/Vol] 0.76 mg/dL 0.00-1.30 [facility] Blood cultureOrdered By: Juliano Brown on 04-18-2025 Bacteria identified Cx Nom (Bld) No growth in [address] [facility] Carbon dioxide, total [Moles /volume] in Central venous bloodOrdered By: Kaushik Brown on 08-19-2024 CO2 [Moles/Vol] 19.8 mmol/L Low 21.0-32.[address] [facility] Chloride assayOrdered By: Dede Brown on 08-19-2024 Chloride [Moles/Vol] 100 mmol/L 98-108 [facility] Eosinophil percentageOrdered By: Kaushik Brown on 08-19-2024 Eosinophils/100 WBC (Bld) 0.1 % 0-[address] [facility] Erythrocyte distribution wid th (RBC) [Ratio]Ordered By: Kaushik Brown on 08-19-2024 Erythrocyte distribution width (RBC) [Entitic vol] 48.7 fL High 35.1-43.[address] [facility] Erythrocyte distribution wid th ratioOrdered By: Kaushik Brown on 08-19-2024 Erythrocyte distribution width (RBC) [Ratio] 14.6 % 11.6-14.[address] [facility] Estimation of creatinine joy aranceOrdered By: Kaushik Brown on 08-19-2024 Estimated Creatinine Clearance Calc 45.50 ml/min Low 50-[address] [facility] GFR/1.73 sq M.predicted [place] non-blacks MDRD (S/P/Bld) [Vol rate/Area]Ordered By: Kaushik Brown on 08-19-2024 Estimated GFR (MDRD) Non-Af Amer 36 Low >[address] [facility] Comment on above: mL/min/1.73m2 CKD-EP I Creatinine Equation (2020) Hematocrit Auto (Bld) [Volum e fraction]Ordered By: Kaushik Brown on 08-19-2024 Hematocrit (Bld) [Volume fraction] 37.4 % Low 40-[address] [facility] Hemoglobin measurementOrdere d By: Kaushik Brown on 08-19-2024 Hemoglobin (Bld) [Mass/Vol] 12.7 g/dL Low 13.0-16.[address] [facility] Immature granulocytes/100 WB C Auto (Bld)Ordered By: Kaushik Brown on 08-19-2024 Immature granulocytes/100 WBC (Bld) 1.000 % High 0.0-0.[address] [facility] Comment on above: IG% - Immature Granu locytes (promyelocytes, myelocytes and metamyelocytes) > 1% indicates that a LEFT SHIFT is Present. International normalized rat io (INR) calculationOrdered By: Kaushik Brown on 08-19-2024 INR Coag (Bld) [Relative time] 1.6 {INR} [facility] - Chemistry and C hemistry - challengeOrdered By: Kaushik Brown on 08-19-2024 AST [Catalytic activity/Vol] 29 U/L <[address] [facility] Lactic acid measurementOrder ed By: Kaushik Brown on 08-19-2024 Lactate [Moles/Vol] 3.4 mmol/L High 0.0-2.0 [facility] Comment on above: Critical Result(s) C alled at 0048: by: CHARLAURNS TO LSPARR Results read back by same. Lymphocytes Auto (Unsp spec) [#/Vol]Ordered By: Kaushik Brown on 08-19-2024 Lymphocytes (Bld) [#/Vol] 0.55 10*3/uL Low 0.83-4.[address] [facility] Lymphocytes/100 WBC Auto (Un sp spec)Ordered By: Kaushik Brown on 08-19-2024 Lymphocytes/100 WBC (Bld) 6.3 % Low 19-[address] [facility] MCV (mean corpuscular volume ) determinationOrdered By: Kaushik Brown on 08-19-2024 MCV (RBC) [Entitic vol] 91.7 fL 80-94 [facility] Mean corpuscular hemoglobin (MCH) determinationOrdered By: Kaushik Brown on 08-19-2024 MCH (RBC) [Entitic mass] 31.1 pg 27.0-32.[address] [facility] Mean corpuscular hemoglobin concentration (MCHC) determinationOrdered By: Kaushik Brown on 08-19-2024 MCHC (RBC) [Mass/Vol] 34.0 g/dL 32-36 [facility] Mean platelet volume determi nationOrdered By: Kaushik Brown on 08-19-2024 Platelet mean volume (Bld) [Entitic vol] 9.3 fL 6.2-12.[address] [facility] Monocyte percentageOrdered B y: Kaushik Brown on 08-19-2024 Monocytes/100 WBC (Bld) 4.9 % 0-10 [facility] Neutrophil percentageOrdered By: Kaushik Brown on 08-19-2024 Neutrophils/100 WBC (Bld) 87.2 % High 47-[address] [facility] Nucleated red blood cell per centageOrdered By: Kaushik Brown on 08-19-2024 Nucleated RBC/100 WBC (Bld) [Ratio] 0 % 0-[address] [facility] Platelet countOrdered By: Dede Brown on 08-19-2024 Platelets (Bld) [#/Vol] 126 10*3/uL Low 150-[address] [facility] Potassium (Unsp spec) [Mass/ Vol]Ordered By: Kaushik Brown on 08-19-2024 Potassium [Moles/Vol] 5.3 mmol/L High 3.3-5.1 [facility] Procalcitonin IA [Mass/Vol]O rdered By: Kaushik Brown on 08-19-2024 Procalcitonin 0.32 ng/mL High <0.[address] [facility] Comment on above: Interpretation:<0.10 -0.25 ng/mL: Antibiotic [...] Procalcitonin IA [Mass/Vol] 0.32 ng/mL High <0.[address] [facility] Comment on above: Interpretation:<0.10 -0.25 ng/mL: Antibiotic [...] Coag (PPP) [Time] 19.2 s High 11.7-14.9 [facility] RBC Auto (Bld) [#/Vol]Ordere d By: Kaushik Brown on 08-19-2024 RBC (Bld) [#/Vol] 4.08 10*6/uL Low 4.6-6.2 [facility] Serum creatinine measurement (mass/volume)Ordered By: Kaushik Brwon on 08-19-2024 Creatinine [Mass/Vol] 1.90 mg/dL High 0.70-1.20 [facility] Serum globulin measurementOr dered By: Kaushik Brown on 08-19-2024 Globulin (S) [Mass/Vol] 3.4 g/dL 2.2-4.2 [facility] Serum glucose measurement (m ass/volume)Ordered By: Kaushik Brown on 08-19-2024 Glucose [Mass/Vol] 245 mg/dL High 70-99 [facility] Serum or plasma alanine wylie otransferase (ALT) measurementOrdered By: Kaushik Brown on 08-19-2024 ALT [Catalytic activity/Vol] 24 U/L <[address] [facility] Serum or plasma albumin maricel urement (mass/volume)Ordered By: Kaushik Brown on 08-19-2024 Albumin [Mass/Vol] 3.6 g/dL 3.4-4.8 [facility] Serum or plasma albumin/glob ulin mass ratioOrdered By: Kaushik Brown 08-19-2024 Albumin/Globulin [Mass ratio] 1.1 {ratio} 0.9-2.[address] [facility] Serum or plasma alkaline ivan sphatase measurementOrdered By: Kaushik Brown 08-19-2024 ALP [Catalytic activity/Vol] 78 U/L 40-[address] [facility] Serum or plasma calcium maricel urement (mass/volume)Ordered By: Kaushik Brown on 08-19-2024 Calcium [Mass/Vol] 8.8 mg/dL 7.6-11.0 [facility] Serum or plasma urea nitroge n measurement (mass/volume)Ordered By: Kaushik Brown on 08-19-2024 Urea nitrogen [Mass/Vol] 17 mg/dL 4-[address] [facility] Sodium levelOrdered By: Bill Brown on 08-19-2024 Sodium [Moles/Vol] 133 mmol/L 133-145 [facility] Total proteinOrdered By: Juliano Brown on 08-19-2024 Protein [Mass/Vol] 7.0 g/dL 5.9-8.4 [facility] White blood cell (WBC) count Ordered By: Kaushik Brown on 08-19-2024 WBC (Bld) [#/Vol] 8.7 10*3/uL 4.4-11.0 [facility] aPTT Coag (PPP) [Time]Ordere d By: Kaushik Brown on 08-19-2024 aPTT Coag (Bld) [Time] 32.3 s 24.1-36.2 [facility] Basic Metabolic Profile (BMP )on 03-18-2024 BUN/CRE 13.4 RATIO Normal 10-[address] [facility] Comment on above: Performed By: #### L 101.9900, L100.0100, L500.2500, L501.6710 #### [facility] [address] [place], [address] CA,Total 9.2 mg/dL Normal 8.5-10.[address] [facility] Comment on above: Performed By: #### L 101.9900, L100.0100, L500.2500, L501.6710 #### [facility] [address] [place], [address] Chloride [Moles/Vol] 107 mmol/L Normal 98-107 [facility] Comment on above: Performed By: #### L 101.9900, L100.0100, L500.2500, L501.6710 #### [facility] [address] [place], [address] CO2 [Moles/Vol] 24.0 mmol/L Normal 21.0-32.[address] [facility] Comment on above: Performed By: #### L 101.9900, L100.0100, L500.2500, L501.6710 #### [facility] [address] [place], [address] Creatinine [Mass/Vol] 1.87 mg/dL High 0.70-1.30 [facility] Comment on above: Result Comment: The validity of the calculated GFR GFRAA in patients over 70 years has not been determined. Clinical correlation is essential. Performed By: #### L 101.9900, L100.0100, L500.2500, L501.6710 #### [facility] [address] [place], [address] ECRCL 49.07 ml/min Normal [facility] Comment on above: Performed By: #### L 101.9900, L100.0100, L500.2500, L501.6710 #### [facility] [address] [place], [address] EST GFR - AA 46 mL/min Low >[address] [facility] Comment on above: Result Comment: Afri can Portuguese GFR Calc Performed By: #### L 101.9900, L100.0100, L500.2500, L501.6710 #### [facility] [address] [place], [address] GAP 5 Normal 5-[address] [facility] Comment on above: Performed By: #### L 101.9900, L100.0100, L500.2500, L501.6710 #### [facility] [address] [place], [address] GFR/1.73 sq M.predicted among non-blacks MDRD (S/P/Bld) [Vol rate/Area] 38 mL/min/{1.73_m2} Low >[address] [facility] Comment on above: Result Comment: Non- GFR Calc Performed By: #### L 101.9900, L100.0100, L500.2500, L501.6710 #### [facility] [address] [place], [address] Glucose [Mass/Vol] 199 mg/dL High 74-106 [facility] Comment on above: Result Comment: Fast ing Glucose result greater than or equal to 126 mg/dL suggests DIABETES MELLITUS per A.D.A. criteria. Performed By: #### L 101.9900, L100.0100, L500.2500, L501.6710 #### [facility] [address] [place], [address] Potassium [Moles/Vol] 4.8 mmol/L Normal 3.5-5.1 [facility] Comment on above: Performed By: #### L 101.9900, L100.0100, L500.2500, L501.6710 #### [facility] [address] [place], [address] Sodium [Moles/Vol] 136 mmol/L Normal 136-145 [facility] Comment on above: Performed By: #### L 101.9900, L100.0100, L500.2500, L501.6710 #### [facility] [address] [place], [address] Urea nitrogen [Mass/Vol] 25 mg/dL High 7-[address] [facility] Comment on above: Performed By: #### L 101.9900, L100.0100, L500.2500, L501.6710 #### [facility] [address] [place], [address] CBC W/Diff, Automatedon 03-04 Absolute Lymph 1.47 X10 3/uL Normal 0.83-4.[address] [facility] Comment on above: Performed By: #### L 101.9900, L100.0100, L500.2500, L501.6710 #### [facility] [address] [place], [address] Absolute Neut 4.7 X10 3/uL Normal 2.0-7.[address] [facility] Comment on above: Performed By: #### L 101.9900, L100.0100, L500.2500, L501.6710 #### [facility] [address] [place], [address] Basophils/100 WBC (Bld) 0.6 % Normal 0-1 [facility] Comment on above: Performed By: #### L 101.9900, L100.0100, L500.2500, L501.6710 #### [facility] [address] [place], [address] Eosinophils/100 WBC (Bld) 2.3 % Normal 0-[address] [facility] Comment on above: Performed By: #### L 101.9900, L100.0100, L500.2500, L501.6710 #### [facility] [address] [place], [address] Erythrocyte distribution width (RBC) [Ratio] 15.0 % High 11.6-14.[address] [facility] Comment on above: Performed By: #### L 101.9900, L100.0100, L500.2500, L501.6710 #### [facility] [address] [place], [address] Hematocrit (Bld) [Volume fraction] 41.8 % Normal 40-[address] [facility] Comment on above: Performed By: #### L 101.9900, L100.0100, L500.2500, L501.6710 #### [facility] [address] [place], [address] Hemoglobin (Bld) [Mass/Vol] 13.7 g/dL Normal 13.0-16.[address] [facility] Comment on above: Performed By: #### L 101.9900, L100.0100, L500.2500, L501.6710 #### [facility] [address] [place], [address] IG% 1.000 High 0.0-0.[address] [facility] Comment on above: Result Comment: IG% - Immature Granulocytes (promyelocytes, myelocytes and metamyelocytes) > 1% indicates that a LEFT SHIFT is Present. Performed By: #### L 101.9900, L100.0100, L500.2500, L501.6710 #### [facility] [address] [place], [address] Lymphocytes/100 WBC (Bld) 21.2 % Normal 19-[address] [facility] Comment on above: Performed By: #### L 101.9900, L100.0100, L500.2500, L501.6710 #### [facility] [address] [place], [address] MCH (RBC) [Entitic mass] 31.6 pg Normal 27.0-32.[address] [facility] Comment on above: Performed By: #### L 101.9900, L100.0100, L500.2500, L501.6710 #### [facility] [address] [place], [address] MCHC (RBC) [Mass/Vol] 32.8 g/dL Normal 32-36 [facility] Comment on above: Performed By: #### L 101.9900, L100.0100, L500.2500, L501.6710 #### [facility] [address] [place], [address] MCV (RBC) [Entitic vol] 96.3 fL High 80-94 [facility] Comment on above: Performed By: #### L 101.9900, L100.0100, L500.2500, L501.6710 #### [facility] [address] [place], [address] Monocytes/100 WBC (Bld) 7.5 % Normal 0-10 [facility] Comment on above: Performed By: #### L 101.9900, L100.0100, L500.2500, L501.6710 #### [facility] [address] [place], [address] Neutrophils/100 WBC (Bld) 67.4 % Normal 47-[address] [facility] Comment on above: Performed By: #### L 101.9900, L100.0100, L500.2500, L501.6710 #### [facility] [address] [place], [address] Nucleated RBC (Bld) [#/Vol] 0 10*3/uL Normal 0-[address] [facility] Comment on above: Performed By: #### L 101.9900, L100.0100, L500.2500, L501.6710 #### [facility] [address] [place], [address] Platelet mean volume (Bld) [Entitic vol] 9.4 fL Normal 6.2-12.[address] [facility] Comment on above: Performed By: #### L 101.9900, L100.0100, L500.2500, L501.6710 #### [facility] [address] [place], [address] Platelets (Bld) [#/Vol] 112 10*3/uL Low 150-[address] [facility] Comment on above: Performed By: #### L 101.9900, L100.0100, L500.2500, L501.6710 #### [facility] [address] [place], [address] RBC (Bld) [#/Vol] 4.34 10*6/uL Low 4.6-6.2 [facility] Comment on above: Performed By: #### L 101.9900, L100.0100, L500.2500, L501.6710 #### [facility] [address] [place], [address] RDW SD 53.0 fl High 35.1-43.[address] [facility] Comment on above: Performed By: #### L 101.9900, L100.0100, L500.2500, L501.6710 #### [facility] [address] [place], [address] WBC (Bld) [#/Vol] 6.9 10*3/uL Normal 4.4-11.0 [facility] Comment on above: Performed By: #### L 101.9900, L100.0100, L500.2500, L501.6710 #### [facility] [address] [place], [address] CRPon 03-18-2024 C-REACTIVE PROT 26.00 mg/L High 0.0-3.[address] [facility] Comment on above: Result Comment: C-Re active Protein (CRP) provides useful information for the diagnosis, therapy and monitoring of inflammatory processes and associated diseases. For the evaluation of Relative Risk for Cardiovascular Disease, a High Sensitivity CRP (HSCRP) should be ordered. Performed By: #### L 101.9900, L100.0100, L500.2500, L501.6710 #### [facility] [address] [place], [address] Chest PA and Lateralon 03-18 Chest PA and Lateral [facility] Imaging Services [address] [place] [address] Chest PA and Lateral MR#: [id number] Acct: [id number] Name: CHARLI PORRAS Rep #: [id number] : 1950 M 73 From: Azar cotter MD PCP: Care Physician,No Primary Status: REG ER Study: Chest PA and Lateral Date of Exam: 03/18/24 Exam# [id number] Ordering Dr: Elicia Blair [id number] STUDY: X-RAY CHEST REASON FOR EXAM: Male, [...] 12:32 EST Reading Location ID and State: [facility] / [place] , Service support , CC: BRANT Chávez; No Primary Care Physician Caustic Room Operator: Signed Normal [facility] Emergency Department Summary on 03-18-2024 Emergency Department Summary [facility] Medical Records Department [address] [place] [address] Emergency Department Summary 03/18/24 MR#: [id number] Acct: [id number] Name: CHARLI PORRAS Rep #: [id number] : 1950 73 From: Elicia GUO PCP: [...] has never seen his doctor or a scientific specialist for this wound, it is being managed at home. He denies any fevers, chills, shortness of breath, chest pain, abdominal pain, nausea, and vomiting. He does have a history of T2DM, HTN, HLD, and CKD. [facility] Medical History Kidney disease Gout Dementia Diabetes HTN (hypertension) Home Medications ???Medication ???Instructions ???Recorded ???Last Taken ???Type allopurinol 100 mg tablet 100 mg PO DAILYCM 05/03/13 Unknown History gabapentin 800 mg tablet 800 mg PO TIDCM 05/03/13 Unknown History eojttelx-gws-ysijn acid 0.4 1 ea PO DAILY 05/03/13 [...] normal respiratory (more content not included)... Normal [facility] Erythrocyte Sed Rateon 03-18 SED RATE 24 mm/hr High 0-[address] [facility] Comment on above: Performed By: #### L 101.9900, L100.0100, L500.2500, L501.6710 #### [facility] [address] [place], [address] Foot min 3 Viewson 4 Foot min 3 Views [facility] Imaging Services [address] [place] [address] Foot min 3 Views MR#: [id number] Acct: [id number] Name: CHARLI PORRAS Rep #: [id number] : 1950 M 73 From: Azar cotter MD PCP: Care Physician,No Primary Status: [facility] ER Study: Foot min 3 Views Date of Exam: 03/18/24 Exam# [id number] Ordering Dr: Elicia Blair [id number] STUDY: X-RAY - LEFT FOOT CLINICAL: Male, [...] CC: BRANT Chávez; No Primary Care Physician Caustic Room Operator: Signed Normal [facility] Absolute lymphocyte countOrd ered By: Elicia Blair on 11-06-2022 Lymphocytes Auto (Unsp spec) [#/Vol] 1.15 10*3/uL 0.83-4.[address] [facility] Basophil percentageOrdered B y: Elicia Blair on 11-06-2022 Basophils/100 WBC (Bld) 0.6 % 0-1 [facility] Chloride [Moles/Vol] 104 mmol/L 98-107 [facility] Eosinophils/100 WBC (Bld) 2.7 % 0-[address] [facility] Glucose [Mass/Vol] 310 mg/dL 74-106 [facility] Comment on above: Glucose result great er than or equal to 200 mg/dLsuggests DIABETES MELLITUS per A.D.A. criteria. Neutrophils (Bld) [#/Vol] 4.4 10*3/uL 2.0-7.[address] [facility] Neutrophils/100 WBC (Bld) 70.7 % 47-[address] [facility] Potassium [Moles/Vol] 4.2 mmol/L 3.5-5.1 [facility] Sodium [Moles/Vol] 137 mmol/L 136-145 [facility] WBC (Bld) [#/Vol] 6.3 10*3/uL 4.4-11.0 [facility] Blood erythrocytes count (nu mber/volume)Ordered By: lEicia Blair on 11-06-2022 RBC (Bld) [#/Vol] 4.45 10*6/uL 4.6-6.2 [facility] Blood hemoglobin measurement (mass/volume)Ordered By: Elicia Blair on 11-06-2022 Hemoglobin (Bld) [Mass/Vol] 13.8 g/dL 13.0-16.[address] [facility] Blood lymphocytes/100 leukoc ytesOrdered By: Elicia Blair on 11-06-2022 Lymphocytes/100 WBC (Bld) 18.3 % 19-[address] [facility] Blood monocytes/100 leukocyt esOrdered By: Elicia Blair on 07-06-2023 Monocytes/100 WBC (Bld) 6.4 % 0-10 [facility] Blood platelet mean volumeOr dered By: Elicia Blair on 11-06-2022 Platelet mean volume (Bld) [Entitic vol] 8.8 fL 6.2-12.[address] [facility] Determination of erythrocyte mean corpuscular volume (MCV)Ordered By: Elicia Blair on 11-06-2022 MCV (RBC) [Entitic vol] 94.6 fL 80-94 [facility] Hematocrit Auto (Bld) [Volum e fraction]Ordered By: Elicia Blair on 11-06-2022 Hematocrit (Bld) [Volume fraction] 42.1 % 40-[address] [facility] - Chemistry and C hemistry - challengeOrdered By: Elicia Blair on 11-06-2022 CO2 [Moles/Vol] 29.0 mmol/L 21.0-32.[address] [facility] Urea nitrogen/Creatinine [Mass ratio] 11.6 mg/mg 10-[address] [facility] - Hematology and Cell countsOrdered By: Elicia Blair on 11-06-2022 Erythrocyte distribution width (RBC) [Entitic vol] 52.6 fL 35.1-43.[address] [facility] Erythrocyte distribution width (RBC) [Ratio] 15.2 % 11.6-14.[address] [facility] Immature granulocytes/100 WBC (Bld) 1.300 % 0.0-0.[address] [facility] Comment on above: IG% - Immature Granu locytes (promyelocytes, myelocytes and metamyelocytes) > 1% indicates that a LEFT SHIFT is Present. MCH (RBC) [Entitic mass] 31.0 pg 27.0-32.[address] [facility] Nucleated RBC/100 WBC (Bld) [Ratio] 0 % 0-[address] [facility] MCHC Auto (RBC) [Mass/Vol]Or dered By: Elicia Blair on 11-06-2022 MCHC (RBC) [Mass/Vol] 32.8 g/dL 32-36 [facility] No Panel InformationOrdered By: Elicia Blair on 11-06-2022 Estimated Creatinine Clearance Calc 47.67 ml/min [facility] Estimated GFR (MDRD) Amer 65 mL/min >[address] [facility] Comment on above: GFR Calc Estimated GFR (MDRD) Non-Af Amer 54 mL/min >[address] [facility] Comment on above: Non- GFR Calc Platelets bldOrdered By: Jarrod Blair on 11-06-2022 Platelets (Bld) [#/Vol] 106 10*3/uL 150-[address] [facility] Serum or plasma calcium maricel urement (mass/volume)Ordered By: Elicia Blair on 11-06-2022 Calcium [Mass/Vol] 8.6 mg/dL 8.5-10.1 [facility] Serum or plasma creatinine m easurement (mass/volume)Ordered By: Elicia Blair on 11-06-2022 Creatinine [Mass/Vol] 1.38 mg/dL 0.70-1.30 [facility] Comment on above: The validity of the calculated GFR & GFRAA in patients over 70 years has not been determined. Clinical correlation is essential. Serum or plasma urea nitroge n measurement (mass/volume)Ordered By: Elicia Blair on 11-06-2022 Urea nitrogen [Mass/Vol] 16 mg/dL 7-[address] [facility] Thin prep Papanicolaou smear with manual screeningOrdered By: Elicia Blair on 11-06-2022 Thin prep Papanicolaou smear with manual screening 4 5-[address] [facility] URINE CULTUREon 06-08-2022 Bacteria identified Cx Nom (U) URINE CULTURE NO BACTERIAL GROWTH Normal [facility] Comment on above: Performed By: #### B GRAY, CBCD #### [facility] [address] [place] [address] URINALYSIS REFLEX TO CULTURE on 06-06-2022 BACTERIA 1+ Abnormal [facility] Comment on above: Order Comment: FAX T O S LOWE [phone] TO PATRIOT Performed By: #### B GRAY, CBCD #### [facility] [address] [place] [address] Bilirubin Ql (U) Negative Normal Negative [facility] Comment on above: Order Comment: FAX T O S LOWE [phone] TO PATRIOT Performed By: #### B MP, CBCD #### [facility] [address] [place] [address] Clarity (U) Turbid Normal Clear [facility] Comment on above: Order Comment: FAX T O S LOWE [phone] TO PATRIOT Performed By: #### B MP, CBCD #### [facility] [address] [place] [address] Color (U) Yellow Normal Yellow [facility] Comment on above: Order Comment: FAX T O S LOWE [phone] TO PATRIOT Performed By: #### B MP, CBCD #### [facility] [address] [place] [address] Epithelial cells LM Ql (Urine sed) 2-[address] [facility] Comment on above: Order Comment: FAX T O S LOWE [phone] TO PATRIOT Performed By: #### B MP, CBCD #### [facility] [address] [place] [address] Glucose Ql (U) 3+ Normal Negative [facility] Comment on above: Order Comment: FAX T O S LOWE [phone] TO PATRIOT Performed By: #### B MP, CBCD #### [facility] [address] [place] [address] Hemoglobin Ql (U) 2+ Abnormal Negative [facility] Comment on above: Order Comment: FAX T O S LOWE [phone] TO PATRIOT Performed By: #### B MP, CBCD #### [facility] [address] [place] [address] KETONE Negative Normal Negative [facility] Comment on above: Order Comment: FAX T O S LOWE [phone] TO PATRIOT Performed By: #### B MP, CBCD #### [facility] [address] [place] [address] LEUKO ESTERASE 2+ Abnormal Negative [facility] Comment on above: Order Comment: FAX T O S LOWE [phone] TO PATRIOT Performed By: #### B MP, CBCD #### [facility] [address] [place] [address] Nitrite Ql (U) Negative Normal Negative [facility] Comment on above: Order Comment: FAX T O S LOWE [phone] TO PATRIOT Performed By: #### B MP, CBCD #### [facility] [address] [place] [address] pH (U) 5.0 [pH] Normal 4.5-8.0 [facility] Comment on above: Order Comment: FAX T O S LOWE [phone] TO PATRIOT Performed By: #### B MP, CBCD #### [facility] [address] [place] [address] Protein Ql (U) 1+ Abnormal Negative [facility] Comment on above: Order Comment: FAX T O S LOWE [phone] TO PATRIOT Performed By: #### B MP, CBCD #### [facility] [address] [place] [address] RBC 5-10 Normal 0-2 [facility] Comment on above: Order Comment: FAX T O S LOWE [phone] TO PATRIOT Performed By: #### B MP, CBCD #### [facility] [address] [place] [address] Specific gravity (U) [Rel density] 1.025 Normal 1.001-1.030 [facility] Comment on above: Order Comment: FAX T O S LOWE [phone] TO PATRIOT Performed By: #### B MP, CBCD #### [facility] [address] [place] [address] URINE REFLEX COMMENT YES Normal NO [facility] Comment on above: Order Comment: FAX T O S LOWE [phone] TO PATRIOT Result Comment: REFL EX CRITERIA MET FOR URINE CULTURE Performed By: #### B GRAY, CBCD #### [facility] [address] [place] [address] UROBILINOGEN 1.0 E.U./dl Normal 0.0-1.0 [facility] Comment on above: Order Comment: FAX T O S LOWE [phone] TO PATRIOT Performed By: #### B GRAY, CBCD #### [facility] [address] [place] [address] WBC TNTC Normal 0-5 [facility] Comment on above: Order Comment: FAX T O S LOWE [phone] TO PATRIOT Performed By: #### B GRAY, CBCD #### [facility] [address] [place] [address] Absolute lymphocyte countOrd ered By: Naresh Sainz on 06-02-2022 Lymphocytes Auto (Unsp spec) [#/Vol] 1.3 10*3/uL 1.10-4.80 [facility] Basic Metabolic Panelon 05-06 Anion gap [Moles/Vol] 9.0 mmol/L Normal 3-11 [facility] ([place]) Comment on above: Performed By: #### C D #### [facility] [address] [place] [address] Calcium [Mass/Vol] 8.8 mg/dL Normal 8.5-10.5 [facility] ([place]) Comment on above: Performed By: #### C D #### [facility] [address] [place] [address] Chloride [Moles/Vol] 100 mmol/L Normal 98-107 [facility] ([place]) Comment on above: Performed By: #### C D #### [facility] [address] [place] [address] CO2 [Moles/Vol] 26 mmol/L Normal 21-31 [facility] ([place]) Comment on above: Performed By: #### C D #### [facility] [address] [place] [address] Creatinine [Moles/Vol] 1.3 mg/dL Normal 0.6-1.3 [facility] ([place]) Comment on above: Performed By: #### C D #### [facility] [address] [place] [address] Creatinine and Glomerular filtration rate.predicted panel (S/P/Bld) 65 mL/min Normal >60 [facility] ([place]) Comment on above: Performed By: #### C D #### [facility] [address] [place] [address] GFR/1.73 sq M.predicted among non-blacks MDRD (S/P/Bld) [Vol rate/Area] 54 mL/min/{1.73_m2} Normal >60 [facility] ([place]) Comment on above: Performed By: #### C D #### [facility] [address] [place] [address] Glucose [Mass/Vol] 153 mg/dL High 70-99 [facility] ([place]) Comment on above: Performed By: #### C D #### [facility] [address] [place] [address] Potassium [Moles/Vol] 3.9 mmol/L Normal 3.6-5.0 [facility] ([place]) Comment on above: Performed By: #### C D #### [facility] [address] [place] [address] Sodium [Moles/Vol] 135 mmol/L Normal 135-145 [facility] ([place]) Comment on above: Performed By: #### C D #### [facility] [address] [place] [address] Urea nitrogen [Mass/Vol] 13 mg/dL Normal 6-20 [facility] ([place]) Comment on above: Performed By: #### C D #### [facility] [address] [place] [address] Basophils Auto (Bld) [#/Vol] Ordered By: Naresh Sainz on 06-02-2022 Basophils (Bld) [#/Vol] 0.0 10*3/uL 0.00-0.20 [facility] Basophils/100 WBC Auto (Bld) Ordered By: Naresh Sainz on 06-02-2022 Basophils/100 WBC (Bld) 0.4 % 0.0-1.5 [facility] Blood magnesium measurement (mass/volume)Ordered By: Naresh Sainz on 06-02-2022 Magnesium (Bld) [Mass/Vol] 1.6 mEq/L 1.6-2.6 [facility] CBC W/ Auto Diffon Basophils (Bld) [#/Vol] 0.0 10*3/uL Normal 0.00-0.20 [facility] ([place]) Comment on above: Performed By: #### C D #### [facility] [address] [place] [address] Basophils/100 WBC (Bld) 0.4 % Normal 0.0-1.5 [facility] ([place]) Comment on above: Performed By: #### C D #### [facility] [address] [place] [address] Eosinophils (Bld) [#/Vol] 0.1 10*3/uL Normal 0.00-0.33 [facility] ([place]) Comment on above: Performed By: #### C D #### [facility] [address] [place] [address] Eosinophils/100 WBC (Bld) 0.9 % Normal 0.0-3.0 [facility] ([place]) Comment on above: Performed By: #### C D #### [facility] [address] [place] [address] Erythrocyte distribution width (RBC) [Ratio] 14.8 % High 10.9-14.3 [facility] ([place]) Comment on above: Performed By: #### C D #### [facility] [address] [place] [address] Hematocrit (Bld) [Volume fraction] 39.0 % Low 41.0-50.0 [facility] ([place]) Comment on above: Performed By: #### C D #### [facility] [address] [place] [address] Hemoglobin (Bld) [Mass/Vol] 12.7 g/dL Low 13.5-16.5 [facility] ([place]) Comment on above: Performed By: #### C D #### [facility] [address] [place] [address] Lymphocytes Auto (Unsp spec) [#/Vol] 1.3 10*3/uL Normal 1.10-4.80 [facility] ([place]) Comment on above: Performed By: #### C D #### [facility] [address] [place] [address] Lymphocytes/100 WBC (Bld) 16.2 % Low 24.0-44.0 [facility] ([place]) Comment on above: Performed By: #### C D #### [facility] [address] [place] [address] MCH (RBC) [Entitic mass] 28.2 pg Normal 28.0-34.0 [facility] ([place]) Comment on above: Performed By: #### C D #### [facility] [address] [place] [address] MCHC (RBC) [Mass/Vol] 32.7 g/dL Low 33.0-37.0 [facility] ([place]) Comment on above: Performed By: #### C D #### [facility] [address] [place] [address] MCV (RBC) [Entitic vol] 86.1 fL Normal 80.0-100.0 [facility] ([place]) Comment on above: Performed By: #### C D #### [facility] [address] [place] [address] Monocytes (Bld) [#/Vol] 0.8 10*3/uL High 0.20-0.70 [facility] ([place]) Comment on above: Performed By: #### C D #### [facility] [address] [place] [address] Monocytes/100 WBC (Bld) 9.4 % High 3.4-9.0 [facility] ([place]) Comment on above: Performed By: #### C D #### [facility] [address] [place] [address] Neutrophils (Bld) [#/Vol] 6.0 10*3/uL Normal 1.83-8.70 [facility] ([place]) Comment on above: Performed By: #### C D #### [facility] [address] [place] [address] Neutrophils/100 WBC (Bld) 73.1 % Normal 40.0-74.0 [facility] ([place]) Comment on above: Performed By: #### C D #### [facility] [address] [place] [address] Platelet mean volume (Bld) [Entitic vol] 6.6 fL Low 7.4-10.4 [facility] ([place]) Comment on above: Performed By: #### C D #### [facility] [address] [place] [address] Platelets (Bld) [#/Vol] 167 10*3/uL Normal 150-450 [facility] ([place]) Comment on above: Performed By: #### C D #### [facility] [address] [place] [address] RBC (Bld) [#/Vol] 4.53 10*6/uL Normal 4.50-5.50 [facility] ([place]) Comment on above: Performed By: #### C D #### [facility] [address] [place] [address] WBC (Bld) [#/Vol] 8.2 10*3/uL Normal 4.5-11.0 [facility] ([place]) Comment on above: Performed By: #### C D #### [facility] [address] [place] [address] Carbon dioxide, total [Moles /volume] in Serum or PlasmaOrdered By: Naresh Sainz on 06-02-2022 CO2 [Moles/Vol] 26 mmol/L 21-31 [facility] Chloride [Moles/volume] in S maricel or PlasmaOrdered By: Naresh Sainz on 06-02-2022 Chloride [Moles/Vol] 100 mmol/L 98-107 [facility] Creatinine and Glomerular fi ltration rate.predicted panel (S/P/Bld)Ordered By: Naresh Sainz on 06-02-2022 GFR/1.73 sq M.predicted MDRD (S/P/Bld) [Vol rate/Area] 65 mL/min/{1.73_m2} >60 [facility] Eosinophils Auto (Bld) [#/Vo l]Ordered By: Naresh Sainz on 06-02-2022 Eosinophils (Bld) [#/Vol] 0.1 10*3/uL 0.00-0.33 [facility] Eosinophils/100 WBC Auto (Bl d)Ordered By: Naresh Sainz on 06-02-2022 Eosinophils/100 WBC (Bld) 0.9 % 0.0-3.0 [facility] Erythrocyte distribution wid th Auto (RBC) [Ratio]Ordered By: Naresh Sainz on 06-02-2022 Erythrocyte distribution width (RBC) [Ratio] 14.8 % 10.9-14.3 [facility] Estimated glomerular filtrat ion rate (GFR) non- AmericanOrdered By: Naresh Sainz on 06-02-2022 GFR/1.73 sq M.predicted among non-blacks MDRD (S/P/Bld) [Vol rate/Area] 54 mL/min/{1.73_m2} >60 [facility] Glucose Glucometer (BldC) [M ass/Vol]on 06-02-2022 Glucose [Mass/Vol] 239 mg/dL Normal 70-99 [facility] ([place]) Comment on above: Performed By: #### 2 1020-3 #### [facility] [address] [place] [address] Glucose [Mass/Vol] 158 mg/dL Normal 70-99 [facility] ([place]) Comment on above: Performed By: #### 4 1653-7 #### [facility] [address] [place] [address] Glucose Glucometer (BldC) [M ass/Vol]Ordered By: Naresh Sainz on 06-02-2022 Glucose [Mass/Vol] 239 mg/dL 70-99 [facility] Hematocrit Auto (Bld) [Volum e fraction]Ordered By: Naresh Sainz on 06-02-2022 Hematocrit (Bld) [Volume fraction] 39.0 % 41.0-50.0 [facility] Hemoglobin A1con 06-02-2022 Average glucose Estimated from glycated hemoglobin (Bld) [Mass/Vol] 235 mg/dL Normal [facility] ([place]) Comment on above: Performed By: #### C D #### [facility] [address] [place] [address] HbA1c (Bld) [Mass fraction] 9.8 % High 4.0-6.0 [facility] ([place]) Comment on above: Performed By: #### C D #### [facility] [address] [place] [address] Hemoglobin [Mass/volume] in BloodOrdered By: Naresh Sainz on 06-02-2022 Hemoglobin (Bld) [Mass/Vol] 12.7 g/dL 13.5-16.5 [facility] Lymphocytes/100 WBC Auto (Bl d)Ordered By: Naresh Sainz on 06-02-2022 Lymphocytes/100 WBC (Bld) 16.2 % 24.0-44.0 [facility] MCH Auto (RBC) [Entitic mass ]Ordered By: Naresh Sainz on 06-02-2022 MCH (RBC) [Entitic mass] 28.2 pg 28.0-34.0 [facility] MCHC Auto (RBC) [Mass/Vol]Or dered By: Naresh Sainz on 06-02-2022 MCHC (RBC) [Mass/Vol] 32.7 g/dL 33.0-37.0 [facility] MCV (mean corpuscular volume ) determinationOrdered By: Naresh Sainz on 06-02-2022 MCV (RBC) [Entitic vol] 86.1 fL 80.0-100.0 [facility] Magnesium Bld-mCncon 023 Magnesium (Bld) [Mass/Vol] 1.6 mEq/L Normal 1.6-2.6 [facility] ([place]) Comment on above: Performed By: #### C D #### [facility] [address] [place] [address] Monocytes Auto (Bld) [#/Vol] Ordered By: Naresh Sainz on 06-02-2022 Monocytes (Bld) [#/Vol] 0.8 10*3/uL 0.20-0.70 [facility] Monocytes/100 WBC Auto (Bld) Ordered By: Naresh Sainz on 06-02-2022 Monocytes/100 WBC (Bld) 9.4 % 3.4-9.0 [facility] Neutrophils Auto (Bld) [#/Vo l]Ordered By: Naresh Sainz on 06-02-2022 Neutrophils (Bld) [#/Vol] 6.0 10*3/uL 1.83-8.70 [facility] Neutrophils/100 WBC Auto (Bl d)Ordered By: Naresh Sainz on 06-02-2022 Neutrophils/100 WBC (Bld) 73.1 % 40.0-74.0 [facility] No Panel InformationOrdered By: Naresh Sainz on 06-02-2022 Anticoagulation Therapy See comment [facility] Comment on above: Suggested Therapy Ra nge: 2.0 - 3.5 Platelet mean volume Auto (B ld) [Entitic vol]Ordered By: Naresh Sainz on 06-02-2022 Platelet mean volume (Bld) [Entitic vol] 6.6 fL 7.4-10.4 [facility] Platelet poor plasma interna tional normalized ratio (INR) by coagulation assay (relatOrdered By: Naresh Sainz on 06-02-2022 INR Coag (PPP) [Relative time] 1.41 {INR} 2.00-3.50 [facility] Platelets Auto (Bld) [#/Vol] Ordered By: Naresh Sainz on 06-02-2022 Platelets (Bld) [#/Vol] 167 10*3/uL 150-450 [facility] Potassium [Moles/volume] in Serum or PlasmaOrdered By: Naresh Sainz on 06-02-2022 Potassium [Moles/Vol] 3.9 mmol/L 3.6-5.0 [facility] Prothrombin Time on Coumadin on 06-02-2022 INR Coag (PPP) [Relative time] 1.41 {INR} Low 2.00-3.50 [facility] ([place]) Comment on above: Performed By: #### 3 2693-4 #### [facility] [address] [place], [place] [id number] (753) RBC Auto (Bld) [#/Vol]Ordere d By: Naresh Sainz on 06-02-2022 RBC (Bld) [#/Vol] 4.53 10*6/uL 4.50-5.50 [facility] Reflex Urn Culton 06-02-2022 Bacteria identified Cx Nom (U) ORGANISM ID: 1.1 - Mixed Urogenital [place] Count >100,000 CFU/ml Normal [facility] ([place]) Comment on above: Performed By: #### 6 30-4 #### [facility] [address] [place] [address] Serum glucose measurement (m ass/volume)Ordered By: Naresh Sainz on 06-02-2022 Glucose [Mass/Vol] 153 mg/dL 70-99 [facility] Serum or plasma anion gap de termination (moles/volume)Ordered By: Naresh Sainz on 06-02-2022 Anion gap [Moles/Vol] 9.0 mmol/L 3-11 [facility] Serum or plasma calcium maricel urement (mass/volume)Ordered By: Naresh Sainz on 06-02-2022 Calcium [Mass/Vol] 8.8 mg/dL 8.5-10.5 [facility] Serum or plasma creatinine m easurement (moles/volume)Ordered By: Naresh Sainz on 06-02-2022 Creatinine [Moles/Vol] 1.3 mg/dL 0.6-1.3 [facility] Serum or plasma sodium measu rement (moles/volume)Ordered By: Naresh Sainz on 06-02-2022 Sodium [Moles/Vol] 135 mmol/L 135-145 [facility] Serum or plasma urea nitroge n measurement (mass/volume)Ordered By: Naresh Sainz on 06-02-2022 Urea nitrogen [Mass/Vol] 13 mg/dL 6-20 [facility] Urine culture routineOrdered By: Thompson Hayden on 06-02-2022 Bacteria identified Cx Nom (U) Mixed Urogenital Daryn [facility] WBC Auto (Bld) [#/Vol]Ordere d By: Naresh Sainz on 06-02-2022 WBC (Bld) [#/Vol] 8.2 10*3/uL 4.5-11.0 [facility] Basic Metabolic Panelon 05-05 Anion gap [Moles/Vol] 6.0 mmol/L Normal 3-11 [facility] ([place]) Comment on above: Performed By: #### 6 30-4 #### [facility] [address] [place] [address] Calcium [Mass/Vol] 8.9 mg/dL Normal 8.5-10.5 [facility] ([place]) Comment on above: Performed By: #### 6 30-4 #### [facility] [address] [place] [address] Chloride [Moles/Vol] 101 mmol/L Normal 98-107 [facility] ([place]) Comment on above: Performed By: #### 6 30-4 #### [facility] [address] [place] [address] CO2 [Moles/Vol] 28 mmol/L Normal 21-31 [facility] ([place]) Comment on above: Performed By: #### 6 30-4 #### [facility] [address] [place] [address] Creatinine [Moles/Vol] 1.3 mg/dL Normal 0.6-1.3 [facility] ([place]) Comment on above: Performed By: #### 6 30-4 #### [facility] [address] [place] [address] Creatinine and Glomerular filtration rate.predicted panel (S/P/Bld) 65 mL/min Normal >60 [facility] ([place]) Comment on above: Performed By: #### 6 30-4 #### [facility] [address] [place] [address] GFR/1.73 sq M.predicted among non-blacks MDRD (S/P/Bld) [Vol rate/Area] 54 mL/min/{1.73_m2} Normal >60 [facility] ([place]) Comment on above: Performed By: #### 6 30-4 #### [facility] [address] [place] [address] Glucose [Mass/Vol] 157 mg/dL High 70-99 [facility] ([place]) Comment on above: Performed By: #### 6 30-4 #### [facility] [address] [place] [address] Potassium [Moles/Vol] 3.8 mmol/L Normal 3.6-5.0 [facility] ([place]) Comment on above: Performed By: #### 6 30-4 #### [facility] [address] [place] [address] Sodium [Moles/Vol] 135 mmol/L Normal 135-145 [facility] ([place]) Comment on above: Performed By: #### 6 30-4 #### [facility] [address] [place] [address] Urea nitrogen [Mass/Vol] 15 mg/dL Normal 6-20 [facility] ([place]) Comment on above: Performed By: #### 6 30-4 #### [facility] [address] [place] [address] CBC W/ Auto Diffon 3 Basophils (Bld) [#/Vol] 0.1 10*3/uL Normal 0.00-0.20 [facility] ([place]) Comment on above: Performed By: #### 6 30-4 #### [facility] [address] [place] [address] Basophils/100 WBC (Bld) 0.8 % Normal 0.0-1.5 [facility] ([place]) Comment on above: Performed By: #### 6 30-4 #### [facility] [address] [place] [address] Eosinophils (Bld) [#/Vol] 0.2 10*3/uL Normal 0.00-0.33 [facility] ([place]) Comment on above: Performed By: #### 6 30-4 #### [facility] [address] [place] [address] Eosinophils/100 WBC (Bld) 3.1 % High 0.0-3.0 [facility] ([place]) Comment on above: Performed By: #### 6 30-4 #### [facility] [address] [place] [address] Erythrocyte distribution width (RBC) [Ratio] 14.8 % High 10.9-14.3 [facility] ([place]) Comment on above: Performed By: #### 6 30-4 #### [facility] [address] [place] [address] Hematocrit (Bld) [Volume fraction] 37.9 % Low 41.0-50.0 [facility] ([place]) Comment on above: Performed By: #### 6 30-4 #### [facility] [address] [place] [address] Hemoglobin (Bld) [Mass/Vol] 12.6 g/dL Low 13.5-16.5 [facility] ([place]) Comment on above: Performed By: #### 6 30-4 #### [facility] [address] [place] [address] Lymphocytes Auto (Unsp spec) [#/Vol] 1.5 10*3/uL Normal 1.10-4.80 [facility] ([place]) Comment on above: Performed By: #### 6 30-4 #### [facility] [address] [place] [address] Lymphocytes/100 WBC (Bld) 21.5 % Low 24.0-44.0 [facility] ([place]) Comment on above: Performed By: #### 6 30-4 #### [facility] [address] [place] [address] MCH (RBC) [Entitic mass] 28.7 pg Normal 28.0-34.0 [facility] ([place]) Comment on above: Performed By: #### 6 30-4 #### [facility] [address] [place] [address] MCHC (RBC) [Mass/Vol] 33.3 g/dL Normal 33.0-37.0 [facility] ([place]) Comment on above: Performed By: #### 6 30-4 #### [address] [address] MCV (RBC) [Entitic vol] 86.0 fL Normal 80.0-100.0 [facility]) Comment on above: Performed By: #### 6 30-4 #### [address] [address] Monocytes (Bld) [#/Vol] 0.5 10*3/uL Normal 0.20-0.70 [facility] ([place]) Comment on above: Performed By: #### 6 30-4 #### [address] [address] Monocytes/100 WBC (Bld) 7.2 % Normal 3.4-9.0 [facility] ([place]) Comment on above: Performed By: #### 6 30-4 #### [address] [address] Neutrophils (Bld) [#/Vol] 4.9 10*3/uL Normal 1.83-8.70 [facility] ([place]) Comment on above: Performed By: #### 6 30-4 #### [address] [address] Neutrophils/100 WBC (Bld) 67.4 % Normal 40.0-74.0 [facility] ([place]) Comment on above: Performed By: #### 6 30-4 #### [address] [address] Platelet mean volume (Bld) [Entitic vol] 6.6 fL Low 7.4-10.4 [facility] ([place]) Comment on above: Performed By: #### 6 30-4 #### [address] [address] Platelets (Bld) [#/Vol] 155 10*3/uL Normal 150-450 [facility] ([place]) Comment on above: Performed By: #### 6 30-4 #### [address] [address] RBC (Bld) [#/Vol] 4.41 10*6/uL Low 4.50-5.50 [facility] ([place]) Comment on above: Performed By: #### 6 30-4 #### [facility] [address] [place] [address] WBC (Bld) [#/Vol] 7.2 10*3/uL Normal 4.5-11.0 [facility] ([place]) Comment on above: Performed By: #### 6 30-4 #### [facility] [address] [place] [address] Glucose Glucometer (BldC) [M ass/Vol]on 06-01-2022 Glucose [Mass/Vol] 161 mg/dL Normal 70-99 [facility] ([place]) Comment on above: Performed By: #### 4 1653-7 #### [facility] [address] [place] [address] Glucose [Mass/Vol] 206 mg/dL Normal 70-99 [facility] ([place]) Comment on above: Performed By: #### 6 30-4 #### [facility] [address] [place] [address] Glucose [Mass/Vol] 232 mg/dL Normal 70-99 [facility] ([place] Comment on above: Performed By: #### 6 30-4 #### [facility] [address] [place] [address] Glucose [Mass/Vol] 152 mg/dL Normal 70-99 [facility] ([place]) Comment on above: Performed By: #### 4 1653-7 #### [facility] [address] [place] [address] Laboratory - Hematology and Cell countsOrdered By: Naresh Sainz on 06-01-2022 HbA1c (Bld) [Mass fraction] 9.8 % 4.0-6.0 [facility] Lipid Panelon 06-01-2022 Cholesterol [Mass/Vol] 97 mg/dL Low 140-200 [facility] ([place]) Comment on above: Performed By: #### 9 4500-6 #### [facility] [address] [place] [address] Cholesterol in HDL [Mass/Vol] 28 mg/dL Low 29-71 [facility] ([place]) Comment on above: Performed By: #### 9 4500-6 #### [facility] [address] [place] [address] Cholesterol in LDL [Mass/Vol] 48 mg/dL Normal <129 [facility] ([place]) Comment on above: Performed By: #### 9 4500-6 #### [facility] [address] [place] [address] Cholesterol in LDL/Cholesterol in HDL [Mass ratio] 1.7 {ratio} Normal [facility] ([place]) Comment on above: Result Comment: MEN WOMEN 1/2 Average Risk 1.00 1.47 Average Risk 3.55 3.22 2X Average Risk 6.25 5.03 3X Average Risk 7.99 6.14 Performed By: #### 9 4500-6 #### [facility] [address] [place] [address] Triglyceride [Mass/Vol] 167 mg/dL Normal 41-189 [facility] ([place]) Comment on above: Performed By: #### 9 4500-6 #### [facility] [address] [place] [address] Magnesium Bld-mCncon 023 Magnesium (Bld) [Mass/Vol] 1.7 mEq/L Normal 1.6-2.6 [facility] ([place]) Comment on above: Performed By: #### 6 30-4 #### [facility] [address] [place] [address] Prothrombin Time on Coumadin on 06-01-2022 INR Coag (PPP) [Relative time] 1.32 {INR} Low 2.00-3.50 [facility] ([place]) Comment on above: Performed By: #### 9 4500-6 #### [facility] [address] [place] [address] Serum or plasma cholesterol in LDL measurement (mass/volume)Ordered By: Naresh Sainz on 06-01-2022 Cholesterol in LDL [Mass/Vol] 48 mg/dL <128 [facility] Serum or plasma cholesterol measurement (mass/volume)Ordered By: Naresh Saizn on 06-01-2022 Cholesterol [Mass/Vol] 97 mg/dL 140-200 [facility] Serum or plasma high density lipoprotein (HDL) cholesterol measurementOrdered By: Naresh Sainz on 06-01-2022 Cholesterol in HDL [Mass/Vol] 28 mg/dL 29-71 [facility] Serum or plasma low density lipoprotein (LDL) cholesterol/high density lipoprotein (HOrdered By: Naresh Sainz on 06-01-2022 Cholesterol in LDL/Cholesterol in HDL [Mass ratio] 1.7 {ratio} [facility] Comment on above: MEN WOMEN1/2 Average Risk 1.00 1.47Average Risk 3.55 3.222X Average Risk 6.25 5.033X Average Risk 7.99 6.14 Serum or plasma thyroid stim ulating hormone (TSH) measurementOrdered By: Naresh Sainz on 06-01-2022 TSH Qn 3.49 uIU/mL 0.34-5.60 [facility] Serum or plasma triglyceride measurement (mass/volume)Ordered By: Naresh Sainz on 06-01-2022 Triglyceride [Mass/Vol] 167 mg/dL 41-189 [facility] TSH SerPl-aCncon 06-01-2022 TSH Qn 3.49 uIU/mL Normal 0.34-5.60 [facility] ([place]) Comment on above: Performed By: #### 9 4500-6 #### [facility] [address] [place] [address] Whole blood estimated averag e glucose determination by estimation from glycated hemoglobin (mass/voluOrdered By: Naresh Sainz on 06-01-2022 Average glucose Estimated from glycated hemoglobin (Bld) [Mass/Vol] 235 mg/dL [facility] ALT (SGPT) ser/plasOrdered B y: Thompson Hayden on 05-31-2022 ALT [Catalytic activity/Vol] 23 U/L 10-63 [facility] Albumin [Mass/volume] in Ser um or PlasmaOrdered By: Thompson Hayden on 05-31-2022 Albumin [Mass/Vol] 3.2 g/dL 3.4-4.8 [facility] Albumin/Globulin [Mass Ratio ] in Serum or PlasmaOrdered By: Thompson Hayden on 05-31-2022 Albumin/Globulin [Mass ratio] 0.8 {ratio} 1.1-2.2 [facility] Alkaline phosphatase [Enzyma tic activity/volume] in Serum or PlasmaOrdered By: Thompson Hayden on 05-31-2022 ALP [Catalytic activity/Vol] 72 U/L 42-121 [facility] Appearance urOrdered By: Jose Hayden on 05-31-2022 Appearance (U) Cloudy [facility] Aspartate aminotransferase [ Enzymatic activity/volume] in Serum or PlasmaOrdered By: Thompson Hayden on 05-31-2022 AST [Catalytic activity/Vol] 22 U/L 10-41 [facility] Automated leukocyte clumps c ount in urine sediment (number/area)Ordered By: Thompson Hayden on 05-31-2022 Leukocyte clumps Auto (Urine sed) [#/Area] Moderate /HPF NONE SEEN [facility] Automated urine sediment bud ding yeast count by microscopy (number/high power field)Ordered By: Thompson Hayden on 05-31-2022 Yeast.budding LM.HPF (Urine sed) [#/Area] Few /HPF NONE SEEN [facility] Bacteria [Presence] in Urine sediment by Light microscopyOrdered By: Thompson Hayden on 05-31-2022 Bacteria LM Ql (Urine sed) 1+ /HPF NONE SEEN [facility] Bilirubin.total [Mass/volume ] in Serum or PlasmaOrdered By: Thompson Hayden on 05-31-2022 Bilirubin [Mass/Vol] 0.8 mg/dL 0.3-1.5 [facility] Blood Cultureon 05-31-2022 Bacteria identified Anaer+Aer cx Nom (Unsp spec) Bacteria Spec Anaerobe+Aerobe Cult NO GROWTH 5 DAYS Normal [facility] ([place]) Comment on above: Performed By: #### 2 1020-3 #### [facility] [address] [place] [address] CBC W/ Auto Diffon 3 Basophils (Bld) [#/Vol] 0.0 10*3/uL Normal 0.00-0.20 [facility] ([place]) Comment on above: Performed By: #### 9 4500-6 #### [facility] [address] [place] [address] Basophils/100 WBC (Bld) 0.7 % Normal 0.0-1.5 [facility] ([place]) Comment on above: Performed By: #### 9 4500-6 #### [address] [address] Eosinophils (Bld) [#/Vol] 0.2 10*3/uL Normal 0.00-0.33 [facility] ([place]) Comment on above: Performed By: #### 9 4500-6 #### [address] [address] Eosinophils/100 WBC (Bld) 2.9 % Normal 0.0-3.0 [facility] ([place]) Comment on above: Performed By: #### 9 4500-6 #### [facility] [address] [place] [address] Erythrocyte distribution width (RBC) [Ratio] 14.7 % High 10.9-14.3 [facility] ([place]) Comment on above: Performed By: #### 9 4500-6 #### [address] [address] Hematocrit (Bld) [Volume fraction] 37.6 % Low 41.0-50.0 [facility] ([place]) Comment on above: Performed By: #### 9 4500-6 #### [address] [address] Hemoglobin (Bld) [Mass/Vol] 12.6 g/dL Low 13.5-16.5 [facility] ([place]) Comment on above: Performed By: #### 9 4500-6 #### [facility] [address] [place] [address] Lymphocytes Auto (Unsp spec) [#/Vol] 1.4 10*3/uL Normal 1.10-4.80 [facility] ([place]) Comment on above: Performed By: #### 9 4500-6 #### [facility] [address] [place] [address] Lymphocytes/100 WBC (Bld) 19.9 % Low 24.0-44.0 [facility] ([place]) Comment on above: Performed By: #### 9 4500-6 #### [facility] [address] [place] [address] MCH (RBC) [Entitic mass] 28.9 pg Normal 28.0-34.0 [facility] ([place]) Comment on above: Performed By: #### 9 4500-6 #### [facility] [address] [place] [address] MCHC (RBC) [Mass/Vol] 33.5 g/dL Normal 33.0-37.0 [facility] ([place]) Comment on above: Performed By: #### 9 4500-6 #### [facility] [address] [place] [address] MCV (RBC) [Entitic vol] 86.3 fL Normal 80.0-100.0 [facility] ([place]) Comment on above: Performed By: #### 9 4500-6 #### [address] [address] Monocytes (Bld) [#/Vol] 0.5 10*3/uL Normal 0.20-0.70 [facility] ([place]) Comment on above: Performed By: #### 9 4500-6 #### [facility] [address] [place] [address] Monocytes/100 WBC (Bld) 7.2 % Normal 3.4-9.0 [facility] ([place]) Comment on above: Performed By: #### 9 4500-6 #### [address] [address] Neutrophils (Bld) [#/Vol] 4.9 10*3/uL Normal 1.83-8.70 [facility] ([place]) Comment on above: Performed By: #### 9 4500-6 #### [facility] [address] [place] [address] Neutrophils/100 WBC (Bld) 69.3 % Normal 40.0-74.0 [facility] ([place]) Comment on above: Performed By: #### 9 4500-6 #### [facility] [address] [place] [address] Platelet mean volume (Bld) [Entitic vol] 6.6 fL Low 7.4-10.4 [facility] ([place]) Comment on above: Performed By: #### 9 4500-6 #### [facility] [address] [place] [address] Platelets (Bld) [#/Vol] 147 10*3/uL Low 150-450 [facility] ([place]) Comment on above: Performed By: #### 9 4500-6 #### [facility] [address] [place] [address] RBC (Bld) [#/Vol] 4.36 10*6/uL Low 4.50-5.50 [facility] ([place]) Comment on above: Performed By: #### 9 4500-6 #### [address] [address] WBC (Bld) [#/Vol] 7.1 10*3/uL Normal 4.5-11.0 [facility] ([place]) Comment on above: Performed By: #### 9 4500-6 #### [facility] [address] [place] [address] CO2 (BldV) [Moles/Vol]Ordere d By: Thompson Hayden on 05-31-2022 CO2 [Moles/Vol] 28.6 mmol/L [facility] CT chest wo conon 05-31-2022 CT chest wo con [facility] [address] [place] [address] CT Scan Report Signed Patient: CHARLI PORRAS R#: [id number] : 1950 Acct:[id number] Age/Sex: 72 / M Admit Date: 05/31/22 Loc: 2T 2014-[address]: Naresh Sainz DO Ordering Physician: Naresh Sainz DO Date of Service: 05/31/22 Procedure(s): CT chest wo con Accession Number(s): [id number] cc: Naresh Sainz DO INDICATION: Shortness of [...] 09 Signed By: Radu Carvalho MD 05/31/222125 [facility] Room Operator: Normal [facility] ([place]) Comprehensive metabolic 2000 panelon 05-31-2022 Albumin [Mass/Vol] 3.2 g/dL Low 3.4-4.8 [facility] ([place] Comment on above: Performed By: #### 4 1653-7 #### [facility] [address] [place] [address] Albumin/Globulin [Mass ratio] 0.8 {ratio} Low 1.1-2.2 [facility] ([place] Comment on above: Performed By: #### 4 1653-7 #### [facility] [address] [place] [address] ALP [Catalytic activity/Vol] 72 U/L Normal 42-121 [facility] ([place] Comment on above: Performed By: #### 4 1653-7 #### [facility] [address] [place] [address] ALT [Catalytic activity/Vol] 23 U/L Normal 10-63 [facility] ([place] Comment on above: Performed By: #### 4 1653-7 #### [facility] [address] [place] [address] Anion gap [Moles/Vol] 10.0 mmol/L Normal 3-11 [facility] ([place]) Comment on above: Performed By: #### 4 1653-7 #### [facility] [address] [place] [address] AST [Catalytic activity/Vol] 22 U/L Normal 10-41 [facility] ([place]) Comment on above: Performed By: #### 4 1653-7 #### [facility] [address] [place] [address] Bilirubin [Mass/Vol] 0.8 mg/dL Normal 0.3-1.5 [facility] ([place]) Comment on above: Performed By: #### 4 1653-7 #### [facility] [address] [place] [address] Calcium [Mass/Vol] 8.8 mg/dL Normal 8.5-10.5 [facility] ([place]) Comment on above: Performed By: #### 4 1653-7 #### [facility] [address] [place] [address] Chloride [Moles/Vol] 99 mmol/L Normal 98-107 [facility] ([place]) Comment on above: Performed By: #### 4 1653-7 #### [facility] [address] [place] [address] CO2 [Moles/Vol] 25 mmol/L Normal 21-31 [facility] ([place]) Comment on above: Performed By: #### 4 1653-7 #### [address] [address] Creatinine [Moles/Vol] 1.2 mg/dL Normal 0.6-1.3 [facility] ([place]) Comment on above: Performed By: #### 4 1653-7 #### [address] [address] Creatinine and Glomerular filtration rate.predicted panel (S/P/Bld) 72 mL/min Normal >60 [facility] ([place]) Comment on above: Performed By: #### 4 1653-7 #### [facility] [address] [place] [address] GFR/1.73 sq M.predicted among non-blacks MDRD (S/P/Bld) [Vol rate/Area] 59 mL/min/{1.73_m2} Normal >60 [facility] ([place]) Comment on above: Performed By: #### 4 1653-7 #### [address] [address] Globulin (S) [Mass/Vol] 3.8 g/dL Normal 1.9-3.9 [facility] ([place]) Comment on above: Performed By: #### 4 1653-7 #### [address] [address] Glucose [Mass/Vol] 195 mg/dL High 70-99 [facility] ([place]) Comment on above: Performed By: #### 4 1653-7 #### [facility] [address] [place] [address] Potassium [Moles/Vol] 3.6 mmol/L Normal 3.6-5.0 [facility] ([place]) Comment on above: Performed By: #### 4 1653-7 #### [facility] [address] [place] [address] Protein [Mass/Vol] 7.0 g/dL Normal 5.9-7.[address] [facility]) Comment on above: Performed By: #### 4 1653-7 #### [facility] [address] [place] [address] Sodium [Moles/Vol] 134 mmol/L Low 135-145 [facility] ([place]) Comment on above: Performed By: #### 4 1653-7 #### [facility] [address] [place] [address] Urea nitrogen [Mass/Vol] 17 mg/dL Normal 6-20 [facility] ([place]) Comment on above: Performed By: #### 4 1653-7 #### [facility] [address] [place] [address] Detection in urine of either or both bilirubin and urobilinogenOrdered By: Thompson Hayden on 05-31-2022 Bilirubin+Urobilinogen Ql (U) Negative NEGATIVE [facility] Gas panel (BldV)on CO2 (BldV) [Partial pressure] 48 mm[Hg] Normal 39-55 [facility] ([place]) Comment on above: Performed By: #### C D #### [facility] [address] [place] [address] CO2 [Moles/Vol] 28.6 mmol/L Normal 23-29 [facility] ([place]) Comment on above: Performed By: #### C D #### [facility] [address] [place] [address] HCO3 (Bld) [Moles/Vol] 27.1 mmol/L Normal 22-28 [facility] ([place]) Comment on above: Performed By: #### C D #### [facility] [address] [place] [address] Oxygen (BldV) [Partial pressure] 62.0 mm[Hg] High 30-50 [facility] ([place]) Comment on above: Performed By: #### C D #### [facility] [address] [place] [address] pH (BldV) 7.36 [pH] Normal 7.31-7.42 [facility] ([place]) Comment on above: Performed By: #### C D #### [facility] [address] [place] [address] VBG Oxygen Saturation 90 % High 50-85 [facility] ([place]) Comment on above: Performed By: #### C D #### [facility] [address] [place] [address] Glucose Glucometer (BldC) [M ass/Vol]on 05-31-2022 Glucose [Mass/Vol] 264 mg/dL Normal 70-99 [facility] ([place]) Comment on above: Performed By: #### 6 30-4 #### [facility] [address] [place] [address] Glucose [Mass/volume] in Uri ne by Automated test stripOrdered By: Thompson Hayden on 05-31-2022 Glucose Auto test strip (U) [Mass/Vol] 1000 mg/dL NEGATIVE [facility] HCO3 (BldV) [Moles/Vol]Order ed By: Thompson Hayden on 05-31-2022 HCO3 (Bld) [Moles/Vol] 27.1 mmol/L 22-28 [facility] Influenza A,B [facility] by PCRon 05-31-2022 FLUBV Ag Ql (Unsp spec) Negative Normal Negative [facility] ([place]) Comment on above: Performed By: #### 4 1653-7 #### [facility] [address] [place] [address] Rapid Flu A Negative Normal Negative [facility] ([place]) Comment on above: Performed By: #### 4 1653-7 #### [facility] [address] [place] [address] Lactate (Bld) [Moles/Vol]on 05-31-2022 Lactate [Moles/Vol] 1.7 mmol/L Normal 0.5-2.0 [facility] ([place]) Comment on above: Performed By: #### C D #### [facility] [address] [place] [address] Lactate (Bld) [Moles/Vol]Ord ered By: Thompson Hayden on 05-31-2022 Lactate [Moles/Vol] 1.7 mmol/L 0.5-2.0 [facility] Leukocytes detection in urin e sediment by light microscopyOrdered By: Thompson Hayden on 05-31-2022 WBC LM Ql (Urine sed) >100 /HPF NONE SEEN [facility] Magnesium Bld-mCncon 023 Magnesium (Bld) [Mass/Vol] 1.6 mEq/L Normal 1.6-2.6 [facility] ([place]) Comment on above: Performed By: #### 4 1653-7 #### [facility] [address] [place] [address] Microscopic examination of u rineOrdered By: Thompson Hayden on 05-31-2022 Microscopic observation LM Nom (Urine sed) Yes [facility] Microscopic observation LM N om (Urine sed)on 05-31-2022 Bacteria LM Ql (Urine sed) 1+ /HPF Normal NONE SEEN [facility] ([place] Comment on above: Order Comment: Urine Collect Clean Catch Performed By: #### 4 1653-7 #### [address] [address] Yeast.budding LM.HPF (Urine sed) [#/Area] FEW Normal NONE SEEN [facility] ([place]) Comment on above: Order Comment: Urine Collect Clean Catch Performed By: #### 4 1653-7 #### [address] [address] Leukocyte clumps Auto (Urine sed) [#/Area] MODERATE Normal NONE SEEN [facility] ([place] Comment on above: Order Comment: Urine Collect Clean Catch Performed By: #### 4 1653-7 #### [facility] [address] [place] [address] RBC Ql (U) 20-50 Normal NONE SEEN [facility] ([place] Comment on above: Order Comment: Urine Collect Clean Catch Performed By: #### 4 1653-7 #### [address] [address] Transitional cells LM Ql (Urine sed) OCCASIONAL Normal NONE SEEN [facility] ([place] Comment on above: Order Comment: Urine Collect Clean Catch Performed By: #### 4 1653-7 #### [address] [address] WBC LM Ql (Urine sed) >100 Normal NONE SEEN [facility] ([place] Comment on above: Order Comment: Urine Collect Clean Catch Performed By: #### 4 1653-7 #### [facility] [address] [place] [address] Natriuretic peptide B [Mass/ Vol]on 05-31-2022 Natriuretic peptide B (Bld) [Mass/Vol] 15 pg/mL Normal 0-100 [facility] ([place]) Comment on above: Performed By: #### 4 1653-7 #### [address] [address] Natriuretic peptide B [Mass/ Vol]Ordered By: Thompson Hayden on 05-31-2022 Natriuretic peptide B (Bld) [Mass/Vol] 15 pg/mL 0-100 [facility] No Panel InformationOrdered By: Thompson Hayden on 05-31-2022 Urine Culture Reflexed Reflexed to culture [facility] Comment on above: A Urine Culture has been added to this specimen. Influenza Type A (Rapid) Negative Negative [facility] Procalcitonin < 0.05 ng/mL 0.10-0.50 [facility] Comment on above: *PROCALCITONIN INTER PRETATION*Less than 0.5: Low risk for systemic infection.0.5 to 2.0: Moderate risk for systemic infection.Greater than 2.0: High risk for systemic infection.10.0 or greater: Likelihood of severe sepsis or septic shock. Venous Blood Oxygen Saturation 90 % 50-85 [facility] Procalcitoninon 05-31-2022 Procalcitonin < 0.05 Normal 0.10-0.50 [facility] ([place]) Comment on above: Result Comment: *PRO CALCITONIN INTERPRETATION* Less than 0.5: Low risk for systemic infection. 0.5 to 2.0: Moderate risk for systemic infection. Greater than 2.0: High risk for systemic infection. 10.0 or greater: Likelihood of severe sepsis or septic shock. Performed By: #### 4 1653-7 #### [facility] [address] [place] [address] Prothrombin Time on Coumadin on 05-31-2022 INR Coag (PPP) [Relative time] 1.72 {INR} Low 2.00-3.50 [facility] ([place]) Comment on above: Performed By: #### 6 30-4 #### [facility] [address] [place] [address] RBC LM Ql (Urine sed)Ordered By: Thompson Hayden on 05-31-2022 RBC Ql (U) 20-50 /HPF NONE SEEN [facility] Rapid influenza B antigen de tectionOrdered By: Thompson Hayden on 05-31-2022 FLUBV Ag Ql (Unsp spec) Negative Negative [facility] Respiratory specimen COVID-1 9 virus RNA detectionOrdered By: Thompson Hayden on 05-31-2022 SARS-CoV-2 (COVID-19) RNA LIV+probe Ql (Resp) [facility] SARS-CoV2 PCRon 05-31-2022 SARS-CoV-2 (COVID-19) RNA LIV+probe [...] authorization is terminated or revoked sooner. Normal [facility] ([place]) Comment on above: Performed By: #### 9 4500-6 #### [facility] [address] [place] [address] Serum globulin measurement ( mass/volume)Ordered By: Thompson Hayden on 05-31-2022 Globulin (S) [Mass/Vol] 3.8 g/dL 1.9-3.9 [facility] Specific gravity of UrineOrd ered By: Thompson Hayden on 05-31-2022 Specific gravity (U) [Rel density] 1.020 1.001-1.035 [facility] Total protein bloodOrdered B y: Thompson Hayden on 05-31-2022 Protein [Mass/Vol] 7.0 g/dL 5.9-7.8 [facility] Transitional cells detection in urine sediment by light microscopyOrdered By: Thompson Hayden on 05-31-2022 Transitional cells LM Ql (Urine sed) Occasional /HPF NONE SEEN [facility] Troponin I SerPl-mCncon 05-05 Troponin I.cardiac [Mass/Vol] 0.04 ng/mL High <0.03 [facility] ([place]) Comment on above: Performed By: #### 4 1653-7 #### [facility] [address] [place] [address] Troponin I ser/plasOrdered B y: Thompson Barrytig on 05-31-2022 Troponin I.cardiac [Mass/Vol] 0.04 ng/mL <0.03 [facility] Urinalysison 05-31-2022 Bilirubin+Urobilinogen Ql (U) Negative Normal NEGATIVE [facility] ([place]) Comment on above: Order Comment: Urine Collect Clean Catch Performed By: #### 4 1653-7 #### [facility] [address] [place] [address] Ketones Ql (U) TRACE Abnormal NEGATIVE [facility] ([place]) Comment on above: Order Comment: Urine Collect Clean Catch Performed By: #### 4 1653-7 #### [facility] [address] [place] [address] Nitrate Ql (U) Negative Normal NEGATIVE [facility] ([place]) Comment on above: Order Comment: Urine Collect Clean Catch Performed By: #### 4 1653-7 #### [facility] [address] [place] [address] RBC Ql (U) SMALL Abnormal NEGATIVE [facility] ([place]) Comment on above: Order Comment: Urine Collect Clean Catch Performed By: #### 4 1653-7 #### [facility] [address] [place] [address] Urobilinogen (U) [Mass/Vol] Negative Normal NEGATIVE [facility] ([place]) Comment on above: Order Comment: Urine Collect Clean Catch Performed By: #### 4 1653-7 #### [facility] [address] [place] [address] WBC Visual Ql (U) MODERATE Abnormal NEGATIVE [facility] ([place]) Comment on above: Order Comment: Urine Collect Clean Catch Performed By: #### 4 1653-7 #### [facility] [address] [place] [address] Appearance (U) CLOUDY Normal [facility] ([place]) Comment on above: Order Comment: Urine Collect Clean Catch Performed By: #### 4 1653-7 #### [facility] [address] [place] [address] Color (U) YELLOW Normal [facility] ([place]) Comment on above: Order Comment: Urine Collect Clean Catch Performed By: #### 4 1653-7 #### [facility] [address] [place] [address] Glucose Auto test strip (U) [Mass/Vol] 1000 mg/dL Abnormal NEGATIVE [facility] ([place]) Comment on above: Order Comment: Urine Collect Clean Catch Performed By: #### 4 1653-7 #### [facility] [address] [place] [address] pH (U) 6.0 [pH] Normal 4.6-8.0 [facility] ([place]) Comment on above: Order Comment: Urine Collect Clean Catch Performed By: #### 4 1653-7 #### [facility] [address] [place] [address] Protein Auto test strip Ql (U) 30 mg/dL Abnormal NEGATIVE [facility] ([place] Comment on above: Order Comment: Urine Collect Clean Catch Performed By: #### 4 1653-7 #### [address] [address] Specific gravity (U) [Rel density] 1.020 Normal 1.001-1.035 [facility] ([place]) Comment on above: Order Comment: Urine Collect Clean Catch Performed By: #### 4 1653-7 #### [facility] [address] [place] [address] Urine blood detectionOrdered By: Thompson Hayden on 05-31-2022 RBC Ql (U) Small NEGATIVE [facility] Urine colorOrdered By: Owen Hayden on 05-31-2022 Color (U) Yellow [facility] Urine ketones detectionOrder ed By: Thompson Hayden on 05-31-2022 Ketones Ql (U) Trace mg/dL NEGATIVE [facility] Urine leukocytes detection b y microscopyOrdered By: Thompson Hayden on 05-31-2022 WBC Visual Ql (U) Moderate NEGATIVE [facility] Urine nitrate detectionOrder ed By: Thompson Hayden on 05-31-2022 Nitrate Ql (U) Negative NEGATIVE [facility] Urine pHOrdered By: Thompson springer on 05-31-2022 pH (U) 6.0 [pH] 4.6-8.0 [facility] Urine protein detection by a utomated test stripOrdered By: Thompson Hayden on 05-31-2022 Protein Auto test strip Ql (U) 30 mg/dL NEGATIVE [facility] Urobilinogen Test strip (U) [Mass/Vol]Ordered By: Thompson Hayden on 05-31-2022 Urobilinogen (U) [Mass/Vol] Negative NEGATIVE [facility] Venous blood pH measurementO rdered By: Thompson Hayden on 05-31-2022 pH (BldV) 7.36 [pH] 7.31-7.42 [facility] Venous blood partial pressur e of carbon dioxide measurementOrdered By: Thompson Hayden on 05-31-2022 CO2 (BldV) [Partial pressure] 48 mm[Hg] 39-55 [facility] Venous blood partial pressur e of oxygen measurementOrdered By: Thompson Hayden on 05-31-2022 Oxygen (BldV) [Partial pressure] 62.0 mm[Hg] 30-50 [facility] XR chest 1V portableon 05-31 XR chest 1V portable [facility] [address] [place] [address] XRay Report Signed Patient: CHARLI PORRAS [place]#: [id number] : 1950 Acct:[id number] Age/Sex: 72 / M Admit Date: 05/31/22 Loc: ER Attending Dr: Ordering Physician: Thompson Hayden MD Date of Service: 05/31/22 Procedure(s): XR chest 1V portable Accession Number(s): [id number] cc: Thompson Hayden MD INDICATION: Shortness of [...] Signed By: Garcia Reeves MD 05/31/22 1510 Ca[address]ic Room Operator: Normal [facility] ([place]) Aerobic and anaerobic cultur e blood cultureOrdered By: Thompson Hayden on 04-25-2022 Bacteria identified Anaer+Aer cx Nom (Unsp spec) NO GROWTH 5 DAYS [facility] Gabapentin SerPl-sCncon - Gabapentin [Moles/Vol] 9.4 ug/mL Normal 4.0-16.0 [facility] ([place]) Comment on above: Result Comment: Dete ction Limit = 1.0 Performed at: [address] [id number] Installation Service Representative: Martha Gaming MD, Phone: [phone] Performed By: #### 6 30-4 #### [facility] [address] [place], [place] [address] Reflex Urn Culton 04-24-2022 Bacteria identified Cx Nom (U) ORGANISM ID: 1.1 - Presumptive Callie glabrata [place] Count 50,000-100,000 CFU/ml Normal [facility] ([place]) Comment on above: Performed By: #### 6 30-4 #### [facility] [address] [place], [place] [id number] Urine culture routineOrdered By: Judy Boo on 04-24-2022 Bacteria identified Cx Nom (U) Presumptive Callie glabrata [facility] ALT (SGPT) ser/plasOrdered B y: Judy Pompura on 04-23-2022 ALT [Catalytic activity/Vol] 39 U/L 10-63 [facility] Absolute lymphocyte countOrd ered By: Judy Pompura on 04-23-2022 Lymphocytes Auto (Unsp spec) [#/Vol] 1.3 10*3/uL 1.10-4.80 [facility] Albumin [Mass/volume] in Ser um or PlasmaOrdered By: Judy Pompura on 04-23-2022 Albumin [Mass/Vol] 3.1 g/dL 3.4-4.8 [facility] Albumin/Globulin [Mass Ratio ] in Serum or PlasmaOrdered By: Judy Pompura on 04-23-2022 Albumin/Globulin [Mass ratio] 0.9 {ratio} 1.1-2.2 [facility] Alkaline phosphatase [Enzyma tic activity/volume] in Serum or PlasmaOrdered By: Judy Pompura on 04-23-2022 ALP [Catalytic activity/Vol] 80 U/L 42-121 [facility] Aspartate aminotransferase [ Enzymatic activity/volume] in Serum or PlasmaOrdered By: Judy Pompura on 04-23-2022 AST [Catalytic activity/Vol] 42 U/L 10-41 [facility] Basophils Auto (Bld) [#/Vol] Ordered By: Judy Pompura on 04-23-2022 Basophils (Bld) [#/Vol] 0.1 10*3/uL 0.00-0.20 [facility] Basophils/100 WBC Auto (Bld) Ordered By: Judy Pompura on 04-23-2022 Basophils/100 WBC (Bld) 1.0 % 0.0-1.5 [facility] Bilirubin.total [Mass/volume ] in Serum or PlasmaOrdered By: Judy Pompura on 04-23-2022 Bilirubin [Mass/Vol] 1.1 mg/dL 0.3-1.5 [facility] CBC W/ Auto Diffon Basophils (Bld) [#/Vol] 0.1 10*3/uL Normal 0.00-0.20 [facility] ([place]) Comment on above: Performed By: #### 9 4500-6 #### [facility] [address] [place] [address] Basophils/100 WBC (Bld) 1.0 % Normal 0.0-1.5 [facility] ([place]) Comment on above: Performed By: #### 9 4500-6 #### [facility] [address] [place] [address] Eosinophils (Bld) [#/Vol] 0.3 10*3/uL Normal 0.00-0.33 [facility] ([place]) Comment on above: Performed By: #### 9 4500-6 #### [facility] [address] [place] [address] Eosinophils/100 WBC (Bld) 4.7 % High 0.0-3.0 [facility] ([place]) Comment on above: Performed By: #### 9 4500-6 #### [address] [address] Erythrocyte distribution width (RBC) [Ratio] 13.5 % Normal 10.9-14.3 [facility] ([place]) Comment on above: Performed By: #### 9 4500-6 #### [facility] [address] [place] [address] Hematocrit (Bld) [Volume fraction] 39.7 % Low 41.0-50.0 [facility] ([place]) Comment on above: Performed By: #### 9 4500-6 #### [facility] [address] [place] [address] Hemoglobin (Bld) [Mass/Vol] 13.3 g/dL Low 13.5-16.5 [facility] ([place]) Comment on above: Performed By: #### 9 4500-6 #### [address] [address] Lymphocytes Auto (Unsp spec) [#/Vol] 1.3 10*3/uL Normal 1.10-4.80 [facility] ([place]) Comment on above: Performed By: #### 9 4500-6 #### [facility] [address] [place] [address] Lymphocytes/100 WBC (Bld) 18.2 % Low 24.0-44.0 [facility] ([place]) Comment on above: Performed By: #### 9 4500-6 #### [facility] [address] [place] [address] MCH (RBC) [Entitic mass] 29.4 pg Normal 28.0-34.0 [facility] ([place]) Comment on above: Performed By: #### 9 4500-6 #### [address] [address] MCHC (RBC) [Mass/Vol] 33.5 g/dL Normal 33.0-37.0 [facility] ([place]) Comment on above: Performed By: #### 9 4500-6 #### [facility] [address] [place] [address] MCV (RBC) [Entitic vol] 88.0 fL Normal 80.0-100.0 [facility] ([place] Comment on above: Performed By: #### 9 4500-6 #### [facility] [address] [place] [address] Monocytes (Bld) [#/Vol] 0.7 10*3/uL Normal 0.20-0.70 [facility] ([place]) Comment on above: Performed By: #### 9 4500-6 #### [facility] [address] [place] [address] Monocytes/100 WBC (Bld) 10.1 % High 3.4-9.0 [facility] ([place] Comment on above: Performed By: #### 9 4500-6 #### [address] [address] Neutrophils (Bld) [#/Vol] 4.6 10*3/uL Normal 1.83-8.70 [facility] ([place]) Comment on above: Performed By: #### 9 4500-6 #### [address] [address] Neutrophils/100 WBC (Bld) 66.0 % Normal 40.0-74.0 [facility] ([place]) Comment on above: Performed By: #### 9 4500-6 #### [address] [address] Platelet mean volume (Bld) [Entitic vol] 7.6 fL Normal 7.4-10.4 [facility] ([place]) Comment on above: Performed By: #### 9 4500-6 #### [address] [address] Platelets (Bld) [#/Vol] 163 10*3/uL Normal 150-450 [facility] ([place]) Comment on above: Performed By: #### 9 4500-6 #### [address] [address] RBC (Bld) [#/Vol] 4.51 10*6/uL Normal 4.50-5.50 [facility] ([place]) Comment on above: Performed By: #### 9 4500-6 #### [address] [address] WBC (Bld) [#/Vol] 7.0 10*3/uL Normal 4.5-11.0 [facility] ([place]) Comment on above: Performed By: #### 9 4500-6 #### [address] [address] Carbon dioxide, total [Moles /volume] in Serum or PlasmaOrdered By: Judy Boo on 04-23-2022 CO2 [Moles/Vol] 23 mmol/L [facility] Chloride [Moles/volume] in S maricel or PlasmaOrdered By: Judy Boo on 04-23-2022 Chloride [Moles/Vol] 102 mmol/L 98-107 [facility] Comprehensive metabolic 2000 panelon 04-23-2022 Albumin [Mass/Vol] 3.1 g/dL Low 3.4-4.8 [facility] ([place]) Comment on above: Performed By: #### 3 2693-4 #### [facility] [address] [place] [address] Albumin/Globulin [Mass ratio] 0.9 {ratio} Low 1.1-2.2 [facility] ([place]) Comment on above: Performed By: #### 3 2693-4 #### [facility] [address] [place] [address] ALP [Catalytic activity/Vol] 80 U/L Normal 42-121 [facility] ([place] Comment on above: Performed By: #### 3 2693-4 #### [facility] [address] [place] [address] ALT [Catalytic activity/Vol] 39 U/L Normal 10-63 [facility] ([place] Comment on above: Performed By: #### 3 2693-4 #### [facility] [address] [place] [address] Anion gap [Moles/Vol] 10.0 mmol/L Normal 3-11 [facility] ([place]) Comment on above: Performed By: #### 3 2693-4 #### [facility] [address] [place] [address] AST [Catalytic activity/Vol] 42 U/L High 10-41 [facility] ([place] Comment on above: Performed By: #### 3 2693-4 #### [facility] [address] [place] [address] Bilirubin [Mass/Vol] 1.1 mg/dL Normal 0.3-1.5 [facility] ([place]) Comment on above: Performed By: #### 3 2693-4 #### [facility] [address] [place] [address] Calcium [Mass/Vol] 8.5 mg/dL Normal 8.5-10.5 [facility] ([place]) Comment on above: Performed By: #### 3 2693-4 #### [facility] [address] [place] [address] Chloride [Moles/Vol] 102 mmol/L Normal 98-107 [facility] ([place] Comment on above: Performed By: #### 3 2693-4 #### [facility] [address] [place] [address] CO2 [Moles/Vol] 23 mmol/L Normal 21-31 [facility] ([place] Comment on above: Performed By: #### 3 2693-4 #### [facility] [address] [place] [address] Creatinine [Moles/Vol] 1.1 mg/dL Normal 0.6-1.3 [facility] ([place] Comment on above: Performed By: #### 3 2693-4 #### [facility] [address] [place] [address] Creatinine and Glomerular filtration rate.predicted panel (S/P/Bld) 80 mL/min Normal >60 [facility] ([place]) Comment on above: Performed By: #### 3 2693-4 #### [address] [address] GFR/1.73 sq M.predicted among non-blacks MDRD (S/P/Bld) [Vol rate/Area] 66 mL/min/{1.73_m2} Normal >60 [facility] ([place]) Comment on above: Performed By: #### 3 2693-4 #### [address] [address] Globulin (S) [Mass/Vol] 3.5 g/dL Normal 1.9-3.9 [facility] ([place] Comment on above: Performed By: #### 3 2693-4 #### [facility] [address] [place] [address] Glucose [Mass/Vol] 244 mg/dL High 70-99 [facility] ([place]) Comment on above: Performed By: #### 3 2693-4 #### [facility] [address] [place] [address] Potassium [Moles/Vol] 3.8 mmol/L Normal 3.6-5.0 [facility] ([place]) Comment on above: Performed By: #### 3 2693-4 #### [address] [address] Protein [Mass/Vol] 6.6 g/dL Normal 5.9-7.8 [facility] ([place]) Comment on above: Performed By: #### 3 2693-4 #### [address] [address] Sodium [Moles/Vol] 135 mmol/L Normal 135-145 [facility] ([place]) Comment on above: Performed By: #### 3 2693-4 #### [address] [address] Urea nitrogen [Mass/Vol] 20 mg/dL Normal 6-20 [facility] ([place] Comment on above: Performed By: #### 3 2693-4 #### [address] [address] Creatinine and Glomerular fi ltration rate.predicted panel (S/P/Bld)Ordered By: Judy Boo on 04-23-2022 GFR/1.73 sq M.predicted MDRD (S/P/Bld) [Vol rate/Area] 80 mL/min/{1.73_m2} >60 [facility] Eosinophils Auto (Bld) [#/Vo l]Ordered By: Judy Boo on 04-23-2022 Eosinophils (Bld) [#/Vol] 0.3 10*3/uL 0.00-0.33 [facility] Eosinophils/100 WBC Auto (Bl d)Ordered By: Judy Boo on 04-23-2022 Eosinophils/100 WBC (Bld) 4.7 % 0.0-3.0 [facility] Erythrocyte distribution wid th Auto (RBC) [Ratio]Ordered By: Judy Boo on 04-23-2022 Erythrocyte distribution width (RBC) [Ratio] 13.5 % 10.9-14.3 [facility] Estimated glomerular filtrat ion rate (GFR) non- AmericanOrdered By: Judy Boo on 04-23-2022 GFR/1.73 sq M.predicted among non-blacks MDRD (S/P/Bld) [Vol rate/Area] 66 mL/min/{1.73_m2} >60 [facility] Glucose Glucometer (BldC) [M ass/Vol]on 04-23-2022 Glucose [Mass/Vol] 214 mg/dL Normal 70-99 [facility] ([place]) Comment on above: Performed By: #### 9 4500-6 #### [facility] [address] [place] [address] Glucose [Mass/Vol] 360 mg/dL Normal 70-99 [facility] ([place] Comment on above: Performed By: #### 4 1653-7 #### [facility] [address] [place] [address] Glucose Glucometer (BldC) [M ass/Vol]Ordered By: Verito Devi on 04-23-2022 Glucose [Mass/Vol] 214 mg/dL 70-99 [facility] Hematocrit Auto (Bld) [Volum e fraction]Ordered By: Judy Boo on 04-23-2022 Hematocrit (Bld) [Volume fraction] 39.7 % 41.0-50.0 [facility] Hemoglobin A1con 04-23-2022 Average glucose Estimated from glycated hemoglobin (Bld) [Mass/Vol] 255 mg/dL Normal [facility] ([place]) Comment on above: Performed By: #### 2 1020-3 #### [facility] [address] [place], [place] [id number] HbA1c (Bld) [Mass fraction] 10.5 % High 4.0-6.0 [facility] ([place]) Comment on above: Performed By: #### 2 1020-3 #### [facility] [address] [place], [place] [id number] Hemoglobin [Mass/volume] in BloodOrdered By: Judy Pompura on 04-23-2022 Hemoglobin (Bld) [Mass/Vol] 13.3 g/dL 13.5-16.5 [facility] Lymphocytes/100 WBC Auto (Bl d)Ordered By: Judy Pompura on 04-23-2022 Lymphocytes/100 WBC (Bld) 18.2 % 24.0-44.0 [facility] MCH Auto (RBC) [Entitic mass ]Ordered By: Judy Pompura on 04-23-2022 MCH (RBC) [Entitic mass] 29.4 pg 28.0-34.0 [facility] MCHC Auto (RBC) [Mass/Vol]Or dered By: Judy Pompura on 04-23-2022 MCHC (RBC) [Mass/Vol] 33.5 g/dL 33.0-37.0 [facility] MCV (mean corpuscular volume ) determinationOrdered By: Judy Pompura on 04-23-2022 MCV (RBC) [Entitic vol] 88.0 fL 80.0-100.0 [facility] Monocytes Auto (Bld) [#/Vol] Ordered By: Judy Pompura on 04-23-2022 Monocytes (Bld) [#/Vol] 0.7 10*3/uL 0.20-0.70 [facility] Monocytes/100 WBC Auto (Bld) Ordered By: Judy Pompura on 04-23-2022 Monocytes/100 WBC (Bld) 10.1 % 3.4-9.0 [facility] Neutrophils Auto (Bld) [#/Vo l]Ordered By: Judy Pompura on 04-23-2022 Neutrophils (Bld) [#/Vol] 4.6 10*3/uL 1.83-8.70 [facility] Neutrophils/100 WBC Auto (Bl d)Ordered By: Judy Pompura on 04-23-2022 Neutrophils/100 WBC (Bld) 66.0 % 40.0-74.0 [facility] No Panel InformationOrdered By: Judy Pompura on 04-23-2022 Anticoagulation Therapy See comment [facility] Comment on above: Suggested Therapy Ra nge: 2.0 - 3.5 Platelet mean volume Auto (B ld) [Entitic vol]Ordered By: Judy Pompura on 04-23-2022 Platelet mean volume (Bld) [Entitic vol] 7.6 fL 7.4-10.4 [facility] Platelet poor plasma interna tional normalized ratio (INR) by coagulation assay (relatOrdered By: Judy Pompura on 04-23-2022 INR Coag (PPP) [Relative time] 2.25 {INR} 2.00-3.50 [facility] Platelets Auto (Bld) [#/Vol] Ordered By: Judy Pompura on 04-23-2022 Platelets (Bld) [#/Vol] 163 10*3/uL 150-450 [facility] Potassium [Moles/volume] in Serum or PlasmaOrdered By: Judy Pompura on 04-23-2022 Potassium [Moles/Vol] 3.8 mmol/L 3.6-5.0 [facility] Prothrombin Time on Coumadin on 04-23-2022 INR Coag (PPP) [Relative time] 2.25 {INR} Normal 2.00-3.50 [facility] ([place]) Comment on above: Performed By: #### 6 30-4 #### [facility] [address] [place] [address] RBC Auto (Bld) [#/Vol]Ordere d By: Judy Pompura on 04-23-2022 RBC (Bld) [#/Vol] 4.51 10*6/uL 4.50-5.50 [facility] Serum globulin measurement ( mass/volume)Ordered By: Judy Ema on 04-23-2022 Globulin (S) [Mass/Vol] 3.5 g/dL 1.9-3.9 [facility] Serum glucose measurement (m ass/volume)Ordered By: Judy Pompura on 04-23-2022 Glucose [Mass/Vol] 244 mg/dL 70-99 [facility] Serum or plasma anion gap de termination (moles/volume)Ordered By: Judy Pompura on 04-23-2022 Anion gap [Moles/Vol] 10.0 mmol/L 3-11 [facility] Serum or plasma calcium maricel urement (mass/volume)Ordered By: Judy Pompura on 04-23-2022 Calcium [Mass/Vol] 8.5 mg/dL 8.5-10.5 [facility] Serum or plasma creatinine m easurement (moles/volume)Ordered By: Judy Kaushikpmayra on 04-23-2022 Creatinine [Moles/Vol] 1.1 mg/dL 0.6-1.3 [facility] Serum or plasma sodium measu rement (moles/volume)Ordered By: Judy Pompura on 04-23-2022 Sodium [Moles/Vol] 135 mmol/L 135-145 [facility] Serum or plasma urea nitroge n measurement (mass/volume)Ordered By: Judy Pompura on 04-23-2022 Urea nitrogen [Mass/Vol] 20 mg/dL 6-20 [facility] Total protein bloodOrdered B y: Judy Pompura on 04-23-2022 Protein [Mass/Vol] 6.6 g/dL 5.9-7.8 [facility] WBC Auto (Bld) [#/Vol]Ordere d By: Judy Pompura on 04-23-2022 WBC (Bld) [#/Vol] 7.0 10*3/uL 4.5-11.0 [facility] Ammonia Spec-mCncon 04-22-20 Ammonia (Unsp spec) [Mass/Vol] 16 umol/L Normal 9-35 [facility] ([place]) Comment on above: Performed By: #### 6 30-4 #### [facility] [address] [place] [address] Ammonia measurement (mass/vo lume)Ordered By: Judyflores Boo on 04-22-2022 Ammonia (Unsp spec) [Mass/Vol] 16 umol/L 9-35 [facility] Appearance urOrdered By: Karina Faulkneradelfo on 04-22-2022 Appearance (U) Clear [facility] Automated urine sediment bud ding yeast count by microscopy (number/high power field)Ordered By: Judy Boo on 04-22-2022 Yeast.budding LM.HPF (Urine sed) [#/Area] Large /HPF NONE SEEN [facility] Automated urine white blood cell countOrdered By: Judyflores Boo on 04-22-2022 WBC Auto (U) [#/Vol] >100 /HPF NONE SEEN [facility] Basic Metabolic Panelon 12-2021 Anion gap [Moles/Vol] 10.0 mmol/L Normal 3-11 [facility] ([place]) Comment on above: Performed By: #### 6 30-4 #### [facility] [address] [place] [address] Calcium [Mass/Vol] 8.4 mg/dL Low 8.5-10.5 [facility] ([place]) Comment on above: Performed By: #### 6 30-4 #### [facility] [address] [place] [address] Chloride [Moles/Vol] 102 mmol/L Normal 98-107 [facility] ([place]) Comment on above: Performed By: #### 6 30-4 #### [facility] [address] [place] [address] CO2 [Moles/Vol] 20 mmol/L Low 21- [facility] ([place]) Comment on above: Performed By: #### 6 30-4 #### [facility] [address] [place] [address] Creatinine [Moles/Vol] 1.2 mg/dL Normal 0.6-1.3 [facility] ([place]) Comment on above: Performed By: #### 6 30-4 #### [facility] [address] [place] [address] Creatinine and Glomerular filtration rate.predicted panel (S/P/Bld) 72 mL/min Normal >60 [facility] ([place]) Comment on above: Performed By: #### 6 30-4 #### [facility] [address] [place] [address] GFR/1.73 sq M.predicted among non-blacks MDRD (S/P/Bld) [Vol rate/Area] 60 mL/min/{1.73_m2} Normal >60 [facility] ([place]) Comment on above: Performed By: #### 6 30-4 #### [facility] [address] [place] [address] Glucose [Mass/Vol] 255 mg/dL High 70-99 [facility] ([place]) Comment on above: Performed By: #### 6 30-4 #### [facility] [address] [place] [address] Potassium [Moles/Vol] 3.3 mmol/L Low 3.6-5.0 [facility] ([place]) Comment on above: Performed By: #### 6 30-4 #### [facility] [address] [place] [address] Sodium [Moles/Vol] 132 mmol/L Low 135-145 [facility] ([place]) Comment on above: Performed By: #### 6 30-4 #### [facility] [address] [place] [address] Urea nitrogen [Mass/Vol] 18 mg/dL Normal 6-20 [facility] ([place]) Comment on above: Performed By: #### 6 30-4 #### [facility] [address] [place] [address] CBC W/ Auto Diffon 12-20-202 2 Basophils (Bld) [#/Vol] 0.1 10*3/uL Normal 0.00-0.20 [facility] ([place]) Comment on above: Performed By: #### 6 30-4 #### [facility] [address] [place] [address] Basophils/100 WBC (Bld) 0.9 % Normal 0.0-1.5 [facility] ([place]) Comment on above: Performed By: #### 6 30-4 #### [facility] [address] [place] [address] Eosinophils (Bld) [#/Vol] 0.2 10*3/uL Normal 0.00-0.33 [facility] ([place]) Comment on above: Performed By: #### 6 30-4 #### [facility] [address] [place] [address] Eosinophils/100 WBC (Bld) 2.8 % Normal 0.0-3.0 [facility] ([place]) Comment on above: Performed By: #### 6 30-4 #### [facility] [address] [place] [address] Erythrocyte distribution width (RBC) [Ratio] 13.5 % Normal 10.9-14.3 [facility] ([place]) Comment on above: Performed By: #### 6 30-4 #### [facility] [address] [place] [address] Hematocrit (Bld) [Volume fraction] 39.4 % Low 41.0-50.0 [facility] ([place]) Comment on above: Performed By: #### 6 30-4 #### [address] [address] Hemoglobin (Bld) [Mass/Vol] 13.1 g/dL Low 13.5-16.5 [facility] ([place]) Comment on above: Performed By: #### 6 30-4 #### [facility] [address] [place] [address] Lymphocytes Auto (Unsp spec) [#/Vol] 1.1 10*3/uL Normal 1.10-4.80 [facility] ([place]) Comment on above: Performed By: #### 6 30-4 #### [facility] [address] [place] [address] Lymphocytes/100 WBC (Bld) 15.1 % Low 24.0-44.0 [facility] ([place]) Comment on above: Performed By: #### 6 30-4 #### [facility] [address] [place] [address] MCH (RBC) [Entitic mass] 29.1 pg Normal 28.0-34.0 [facility] ([place]) Comment on above: Performed By: #### 6 30-4 #### [address] [address] MCHC (RBC) [Mass/Vol] 33.2 g/dL Normal 33.0-37.0 [facility] ([place]) Comment on above: Performed By: #### 6 30-4 #### [facility] [address] [place] [address] MCV (RBC) [Entitic vol] 87.7 fL Normal 80.0-100.0 [facility] ([place]) Comment on above: Performed By: #### 6 30-4 #### [address] [address] Monocytes (Bld) [#/Vol] 0.8 10*3/uL High 0.20-0.70 [facility] ([place]) Comment on above: Performed By: #### 6 30-4 #### [address] [address] Monocytes/100 WBC (Bld) 11.9 % High 3.4-9.0 [facility] ([place]) Comment on above: Performed By: #### 6 30-4 #### [facility] [address] [place] [address] Neutrophils (Bld) [#/Vol] 4.8 10*3/uL Normal 1.83-8.70 [facility] ([place]) Comment on above: Performed By: #### 6 30-4 #### [facility] [address] [place] [address] Neutrophils/100 WBC (Bld) 69.3 % Normal 40.0-74.0 [facility] ([place]) Comment on above: Performed By: #### 6 30-4 #### [facility] [address] [place] [address] Platelet mean volume (Bld) [Entitic vol] 6.5 fL Low 7.4-10.4 [facility] ([place]) Comment on above: Performed By: #### 6 30-4 #### [address] [address] Platelets (Bld) [#/Vol] 137 10*3/uL Low 150-450 [facility] ([place]) Comment on above: Performed By: #### 6 30-4 #### [address] [address] RBC (Bld) [#/Vol] 4.49 10*6/uL Low 4.50-5.50 [facility] ([place]) Comment on above: Performed By: #### 6 30-4 #### [address] [address] WBC (Bld) [#/Vol] 6.9 10*3/uL Normal 4.5-11.0 [facility] ([place]) Comment on above: Performed By: #### 6 30-4 #### [address] [address] Detection in urine of either or both bilirubin and urobilinogenOrdered By: Judy Boo on 04-22-2022 Bilirubin+Urobilinogen Ql (U) Negative NEGATIVE [facility] Folate SerPl-mCncon 04-22-20 Folate [Mass/Vol] ng/mL Normal >5.9 [facility] ([place]) Comment on above: Performed By: #### 3 2693-4 #### [facility] [address] [place] [address] Glucose Glucometer (BldC) [M ass/Vol]on 04-22-2022 Glucose [Mass/Vol] 314 mg/dL Normal 70-99 [facility] ([place]) Comment on above: Performed By: #### 4 1653-7 #### [facility] [address] [place] [address] Glucose [Mass/Vol] 171 mg/dL Normal 70-99 [facility] ([place]) Comment on above: Performed By: #### 3 2693-4 #### [facility] [address] [place] [address] Glucose [Mass/Vol] 292 mg/dL Normal 70-99 [facility] ([place]) Comment on above: Performed By: #### C D #### [facility] [address] [place] [address] Glucose [Mass/Vol] 199 mg/dL Normal 70-99 [facility] ([place]) Comment on above: Performed By: #### 3 2693-4 #### [facility] [address] [place] [address] Glucose [Mass/volume] in Uri ne by Automated test stripOrdered By: Judy Boo on 04-22-2022 Glucose Auto test strip (U) [Mass/Vol] >=2000 mg/dL NEGATIVE [facility] Laboratory - Hematology and Cell countsOrdered By: Mary Beth Landaverde on 04-22-2022 HbA1c (Bld) [Mass fraction] 10.5 % 4.0-6.0 [facility] Lactate (Bld) [Moles/Vol]on 04-22-2022 Lactate [Moles/Vol] 1.1 mmol/L Normal 0.5-2.0 [facility] ([place]) Comment on above: Performed By: #### 2 1020-3 #### [facility] [address] [place] [address] Lactate (Bld) [Moles/Vol]Ord ered By: Mary Beth Landaverde on 04-22-2022 Lactate [Moles/Vol] 1.1 mmol/L 0.5-2.0 [facility] Lipid Panelon 04-22-2022 Cholesterol [Mass/Vol] 99 mg/dL Low 140-200 [facility] ([place]) Comment on above: Performed By: #### 3 2693-4 #### [facility] [address] [place] [address] Cholesterol in HDL [Mass/Vol] 23 mg/dL Low 29-71 [facility] ([place]) Comment on above: Performed By: #### 3 2693-4 #### [facility] [address] [place] [address] Cholesterol in LDL [Mass/Vol] 46 mg/dL Normal <129 [facility] ([place]) Comment on above: Performed By: #### 3 2693-4 #### [facility] [address] [place] [address] Cholesterol in LDL/Cholesterol in HDL [Mass ratio] 2.0 {ratio} Normal [facility] ([place]) Comment on above: Result Comment: MEN WOMEN 1/2 Average Risk 1.00 1.47 Average Risk 3.55 3.22 2X Average Risk 6.25 5.03 3X Average Risk 7.99 6.14 Performed By: #### 3 2693-4 #### [facility] [address] [place] [address] Triglyceride [Mass/Vol] 189 mg/dL Normal 41-189 [facility] ([place]) Comment on above: Performed By: #### 3 2693-4 #### [facility] [address] [place] [address] MR angio head wo conon 04-22 MR angio head wo [facility] [address] [place], [place] [address] Magnetic Resonance Report Signed Patient: CHARLI PORRAS R#: [id number] : 1950 Acct:[id number] Age/Sex: 71 / M Admit Date: 04/19/22 Loc: 2T 2004- Attending Dr: Verito Devi MD Ordering Physician: Mary Beth Landaverde NP Date of Service: 04/22/22 Procedure(s): MR angio head wo con; MR angio neck wo con Accession Number(s): [id number]; [id number] cc: Mary Beth Landaverde NP PHYSICIAN INDICATIONS: Pain 3T MR Angiogram Head: TECHNIQUE: 3T MRI. 3-D yipf-ie-bzzoki images were obtained to the head without [...] MR Angiogram Neck: TECHNIQUE: 3T MRI. 3-D ogtn-nu-quxeua MRI images of the neck were obtained [...] Signed By: Yunior Hickey MD 04/22/22 1538 Ca[facility] Room Operator: [facility] ([place]) MR angio neck wo conon 04-22 MR angio neck wo [facility] [address] [place] [address] Magnetic Resonance Report Signed Patient: CHARLI PORRAS R#: [id number] : 1950 Acct:[id number] Age/Sex: 71 / M Admit Date: 04/19/22 Loc: 2T 2004- Attending Dr: Verito Devi MD Ordering Physician: Mary Beth Landaverde NP Date of Service: 04/22/22 Procedure(s): MR angio head wo con; MR angio neck wo con Accession Number(s): [id number]; [id number] cc: Mary Beth Landaverde NP PHYSICIAN INDICATIONS: Pain 3T MR Angiogram Head: TECHNIQUE: 3T MRI. 3-D sboe-an-asjdnw images were obtained to the head without [...] MR Angiogram Neck: TECHNIQUE: 3T MRI. 3-D schc-wd-nxtxku MRI images of the neck were obtained [...] Signed By: Yunior Hickey MD 04/22/22 153 Ca[facility] Room Operator: [facility] ([place]) MR brain wo conon 04-22-2022 MR brain wo con [facility] [address] [place] [address] Magnetic Resonance Report Signed Patient: CHARLI PORRAS R#: [id number] : 1950 Acct:[id number] Age/Sex: 71 / M Admit Date: 04/19/22 Loc: 2T 2004- Attending Dr: Verito Devi MD Ordering Physician: Mary Beth Landaverde NP Date of Service: 04/22/22 Procedure(s): MR brain wo con Accession Number(s): [id number] cc: Mary Beth Landaverde NP PHYSICIAN INDICATIONS: [...] Signed By: Yunior Hickey MD 04/22/22 152 Ca[employer]ic Room Operator: IBRAHIMA Greenberg [facility] ([place]) Mucus [Presence] in Urine by AutomatedOrdered By: Judy Boo on 04-22-2022 Mucus Auto Ql (U) Small /HPF NONE SEEN [facility] No Panel InformationOrdered By: Judy Boo on 04-22-2022 Urine Culture Reflexed Reflexed to culture [facility] Comment on above: A Urine Culture has been added to this specimen. Prothrombin Time on Coumadin on 04-22-2022 INR Coag (PPP) [Relative time] 2.74 {INR} Normal 2.00-3.50 [facility] ([place]) Comment on above: Performed By: #### 9 4500-6 #### [facility] [address] [place] [address] RBC LM Ql (Urine sed)Ordered By: Judy Boo on 04-22-2022 RBC Ql (U) 11-20 /HPF NONE SEEN [facility] Serum or plasma cholesterol in LDL measurement (mass/volume)Ordered By: Mary Beth Landaverde on 04-22-2022 Cholesterol in LDL [Mass/Vol] 46 mg/dL <128 [facility] Serum or plasma cholesterol measurement (mass/volume)Ordered By: Mary Beth Landaverde on 04-22-2022 Cholesterol [Mass/Vol] 99 mg/dL 140-200 [facility] Serum or plasma folate measu rement (mass/volume)Ordered By: Mary Beth Landaverde on 04-22-2022 Folate [Mass/Vol] ng/mL >6.0 [facility] Serum or plasma gabapentin m easurementOrdered By: Mary Beth Landaverde on 04-22-2022 Gabapentin [Moles/Vol] 9.4 ug/mL 4.0-16.0 [facility] Comment on above: Detection Limit = 1. 0Performed at: BN - [facility] [address] [id number] Director: Martha Gaming MD, Phone: [phone] Serum or plasma high density lipoprotein (HDL) cholesterol measurementOrdered By: Mary Beth Landaverde on 04-22-2022 Cholesterol in HDL [Mass/Vol] 23 mg/dL 29-71 [facility] Serum or plasma low density lipoprotein (LDL) cholesterol/high density lipoprotein (HOrdered By: Mary Beth Landaverde on 04-22-2022 Cholesterol in LDL/Cholesterol in HDL [Mass ratio] 2.0 {ratio} [facility] Comment on above: MEN WOMEN1/2 Average Risk 1.00 1.47Average Risk 3.55 3.222X Average Risk 6.25 5.033X Average Risk 7.99 6.14 Serum or plasma thyroid stim ulating hormone (TSH) measurementOrdered By: Mary Beth Landaverde on 04-22-2022 TSH Qn 3.00 uIU/mL 0.34-5.60 [facility] Serum or plasma triglyceride measurement (mass/volume)Ordered By: Mary Beth Landaverde on 04-22-2022 Triglyceride [Mass/Vol] 189 mg/dL 41-189 [facility] Specific gravity of UrineOrd ered By: Judy Boo on 04-22-2022 Specific gravity (U) [Rel density] 1.015 1.001-1.035 [facility] TSH SerPl-aCncon 04-22-2022 TSH Qn 3.00 uIU/mL Normal 0.34-5.60 [facility] ([place]) Comment on above: Performed By: #### 3 2693-4 #### [facility] [address] [place] [address] Transitional cells detection in urine sediment by light microscopyOrdered By: Judy Boo on 04-22-2022 Transitional cells LM Ql (Urine sed) Not Reportable [facility] Urinalysis complete panel (U )on 04-22-2022 Mucus Auto Ql (U) SMALL Normal NONE SEEN [facility] ([place]) Comment on above: Order Comment: Urine Collect Straight Cath Performed By: #### 4 1653-7 #### [facility] [address] [place] [address] RBC Ql (U) 11-20 Normal NONE SEEN [facility] ([place]) Comment on above: Order Comment: Urine Collect Straight Cath Performed By: #### 4 1653-7 #### [facility] [address] [place] [address] WBC Auto (U) [#/Vol] >100 Normal NONE SEEN [facility] ([place]) Comment on above: Order Comment: Urine Collect Straight Cath Performed By: #### 4 1653-7 #### [address] [address] Yeast.budding LM.HPF (Urine sed) [#/Area] LARGE Normal NONE SEEN [facility] ([place]) Comment on above: Order Comment: Urine Collect Straight Cath Performed By: #### 4 1653-7 #### [address] [address] Urine blood detectionOrdered By: Judy Pompura on 04-22-2022 RBC Ql (U) Small NEGATIVE [facility] Urine colorOrdered By: Patri magdaleno Pompura on 04-22-2022 Color (U) Yellow [facility] Urine ketones detectionOrder ed By: Judy Pompura on 04-22-2022 Ketones Ql (U) 15 mg/dL NEGATIVE [facility] Urine leukocytes detection b y microscopyOrdered By: Judy Pompura on 04-22-2022 WBC Visual Ql (U) Moderate NEGATIVE [facility] Urine nitrate detectionOrder ed By: Judy Pompura on 04-22-2022 Nitrate Ql (U) Negative NEGATIVE [facility] Urine pHOrdered By: Judy Pompura on 04-22-2022 pH (U) 5.0 [pH] 4.6-8.0 [facility] Urine protein detection by a utomated test stripOrdered By: Judy Boo on 04-22-2022 Protein Auto test strip Ql (U) Negative NEGATIVE [facility] Vit B12 SerPl-mCncon 022 Cobalamin (Vitamin B12) [Mass/Vol] 787 pg/mL Normal 180-914 [facility] ([place]) Comment on above: Performed By: #### 3 2693-4 #### [facility] [address] [place] [address] Vitamin B12 ser/plasOrdered By: Mary Beth Landaverde on 04-22-2022 Cobalamin (Vitamin B12) [Mass/Vol] 787 pg/mL 180-914 [facility] Whole blood estimated averag e glucose determination by estimation from glycated hemoglobin (mass/voluOrdered By: Mary Beth Landaverde on 04-22-2022 Average glucose Estimated from glycated hemoglobin (Bld) [Mass/Vol] 255 mg/dL [facility] XR chest 2Von 04-22-2022 XR chest 2V [facility] [address] [place], [place] [address] XRay Report Signed Patient: CHARLI PORRAS#: [id number] : 1950 Acct:[id number] Age/Sex: 71 / M Admit Date: 04/19/22 Loc: 3026-[address]: Verito Devi MD Ordering Physician: Mary Beth Landaverde NP Date of Service: 04/22/22 Procedure(s): XR chest 2V Accession Number(s): [id number] cc: Mary Beth Landaverde NP PHYSICIAN INDICATIONS: SOB TECHNIQUE: Portable view. FINDINGS: The heart size is normal. The lung seay are clear. No infiltrates are identified. No pleural effusions are present. Postsurgical changes lower cervical spine. IMPRESSION: Chest, Portable: 1. No active pulmonary disease. No change from 04/19/2022. Dictated By: Yunior Hickey MD DD/ 43 Signed By: Yunior Hickey MD 04/22/221443 [facility] Room Operator: IBRAHIMA Greenberg [facility] ([place]) Blood prothrombin time (PT) by coagulation assayOrdered By: Verito Devi on 04-21-2022 PT Coag (Bld) [Time] 26.2 s 9.5-12.9 [facility] CBC W/ Auto Diffon Basophils (Bld) [#/Vol] 0.0 10*3/uL Normal 0.00-0.20 [facility] ([place]) Comment on above: Performed By: #### 9 4500-6 #### [address] [address] Basophils/100 WBC (Bld) 0.5 % Normal 0.0-1.5 [facility] ([place]) Comment on above: Performed By: #### 9 4500-6 #### [address] [address] Eosinophils (Bld) [#/Vol] 0.1 10*3/uL Normal 0.00-0.33 [facility] ([place]) Comment on above: Performed By: #### 9 4500-6 #### [address] [address] Eosinophils/100 WBC (Bld) 1.5 % Normal 0.0-3.0 [facility] ([place]) Comment on above: Performed By: #### 9 4500-6 #### [address] [address] Erythrocyte distribution width (RBC) [Ratio] 13.2 % Normal 10.9-14.3 [facility] ([place]) Comment on above: Performed By: #### 9 4500-6 #### [address] [address] Hematocrit (Bld) [Volume fraction] 39.2 % Low 41.0-50.0 [facility] ([place]) Comment on above: Performed By: #### 9 4500-6 #### [facility] [address] [place] [address] Hemoglobin (Bld) [Mass/Vol] 13.4 g/dL Low 13.5-16.5 [facility] ([place]) Comment on above: Performed By: #### 9 4500-6 #### [facility] [address] [place] [address] Lymphocytes Auto (Unsp spec) [#/Vol] 1.1 10*3/uL Normal 1.10-4.80 [facility] ([place]) Comment on above: Performed By: #### 9 4500-6 #### [facility] [address] [place] [address] Lymphocytes/100 WBC (Bld) 12.3 % Low 24.0-44.0 [facility] ([place]) Comment on above: Performed By: #### 9 4500-6 #### [facility] [address] [place] [address] MCH (RBC) [Entitic mass] 29.9 pg Normal 28.0-34.0 [facility] ([place]) Comment on above: Performed By: #### 9 4500-6 #### [facility] [address] [place] [address] MCHC (RBC) [Mass/Vol] 34.1 g/dL Normal 33.0-37.0 [facility] ([place]) Comment on above: Performed By: #### 9 4500-6 #### [facility] [address] [place] [address] MCV (RBC) [Entitic vol] 87.7 fL Normal 80.0-100.0 [facility] ([place]) Comment on above: Performed By: #### 9 4500-6 #### [facility] [address] [place] [address] Monocytes (Bld) [#/Vol] 1.0 10*3/uL High 0.20-0.70 [facility] ([place]) Comment on above: Performed By: #### 9 4500-6 #### [address] [address] Monocytes/100 WBC (Bld) 11.2 % High 3.4-9.0 [facility] ([place]) Comment on above: Performed By: #### 9 4500-6 #### [address] [address] Neutrophils (Bld) [#/Vol] 6.7 10*3/uL Normal 1.83-8.70 [facility] ([place]) Comment on above: Performed By: #### 9 4500-6 #### [address] [address] Neutrophils/100 WBC (Bld) 74.5 % High 40.0-74.0 [facility] ([place]) Comment on above: Performed By: #### 9 4500-6 #### [address] [address] Platelet mean volume (Bld) [Entitic vol] 6.7 fL Low 7.4-10.4 [facility] ([place]) Comment on above: Performed By: #### 9 4500-6 #### [facility] [address] [place] [address] Platelets (Bld) [#/Vol] 136 10*3/uL Low 150-450 [facility] ([place]) Comment on above: Performed By: #### 9 4500-6 #### [address] [address] RBC (Bld) [#/Vol] 4.47 10*6/uL Low 4.50-5.50 [facility] ([place]) Comment on above: Performed By: #### 9 4500-6 #### [address] [address] WBC (Bld) [#/Vol] 9.0 10*3/uL Normal 4.5-11.0 [facility] ([place]) Comment on above: Performed By: #### 9 4500-6 #### [facility] [address] [place] [address] Comprehensive metabolic 2000 panelon 04-21-2022 Albumin [Mass/Vol] 3.1 g/dL Low 3.4-4.8 [facility] ([place]) Comment on above: Performed By: #### 4 1653-7 #### [facility] [address] [place] [address] Albumin/Globulin [Mass ratio] 0.9 {ratio} Low 1.1-2.2 [facility] ([place]) Comment on above: Performed By: #### 4 1653-7 #### [facility] [address] [place] [address] ALP [Catalytic activity/Vol] 73 U/L Normal 42-121 [facility] ([place]) Comment on above: Performed By: #### 4 1653-7 #### [facility] [address] [place] [address] ALT [Catalytic activity/Vol] 25 U/L Normal 10-63 [facility] ([place]) Comment on above: Performed By: #### 4 1653-7 #### [facility] [address] [place] [address] Anion gap [Moles/Vol] 9.0 mmol/L Normal 3-11 [facility] ([place]) Comment on above: Performed By: #### 4 1653-7 #### [facility] [address] [place] [address] AST [Catalytic activity/Vol] 28 U/L Normal 10-41 [facility] ([place]) Comment on above: Performed By: #### 4 1653-7 #### [facility] [address] [place] [address] Bilirubin [Mass/Vol] 1.0 mg/dL Normal 0.3-1.5 [facility] ([place]) Comment on above: Performed By: #### 4 1653-7 #### [facility] [address] [place] [address] Calcium [Mass/Vol] 8.1 mg/dL Low 8.5-10.5 [facility] ([place]) Comment on above: Performed By: #### 4 1653-7 #### [address] [address] Chloride [Moles/Vol] 101 mmol/L Normal 98-107 [facility] ([place]) Comment on above: Performed By: #### 4 1653-7 #### [facility] [address] [place] [address] CO2 [Moles/Vol] 22 mmol/L Normal 21-31 [facility] ([place]) Comment on above: Performed By: #### 4 1653-7 #### [facility] [address] [place] [address] Creatinine [Moles/Vol] 1.1 mg/dL Normal 0.6-1.3 [facility] ([place]) Comment on above: Performed By: #### 4 1653-7 #### [facility] [address] [place] [address] Creatinine and Glomerular filtration rate.predicted panel (S/P/Bld) 80 mL/min Normal >60 [facility] ([place]) Comment on above: Performed By: #### 4 1653-7 #### [facility] [address] [place] [address] GFR/1.73 sq M.predicted among non-blacks MDRD (S/P/Bld) [Vol rate/Area] 66 mL/min/{1.73_m2} Normal >60 [facility] ([place]) Comment on above: Performed By: #### 4 1653-7 #### [address] [address] Globulin (S) [Mass/Vol] 3.6 g/dL Normal 1.9-3.9 [facility] ([place]) Comment on above: Performed By: #### 4 1653-7 #### [facility] [address] [place] [address] Glucose [Mass/Vol] 251 mg/dL High 70-99 [facility] ([place]) Comment on above: Performed By: #### 4 1653-7 #### [facility] [address] [place] [address] Potassium [Moles/Vol] 3.9 mmol/L Normal 3.6-5.0 [facility] ([place]) Comment on above: Performed By: #### 4 1653-7 #### [facility] [address] [place] [address] Protein [Mass/Vol] 6.7 g/dL Normal 5.9-7.8 [facility] ([place] Comment on above: Performed By: #### 4 1653-7 #### [facility] [address] [place] [address] Sodium [Moles/Vol] 132 mmol/L Low 135-145 [facility] ([place] Comment on above: Performed By: #### 4 1653-7 #### [facility] [address] [place] [address] Urea nitrogen [Mass/Vol] 21 mg/dL High 6-20 [facility] ([place] Comment on above: Performed By: #### 4 1653-7 #### [facility] [address] [place] [address] Glucose Glucometer (BldC) [M ass/Vol]on 04-21-2022 Glucose [Mass/Vol] 209 mg/dL Normal 70-99 [facility] ([place] Comment on above: Performed By: #### 4 1653-7 #### [facility] [address] [place] [address] Glucose [Mass/Vol] 195 mg/dL Normal 70-99 [facility] ([place] Comment on above: Performed By: #### 6 30-4 #### [facility] [address] [place] [address] Glucose [Mass/Vol] 263 mg/dL Normal 70-99 [facility] ([place] Comment on above: Performed By: #### 4 1653-7 #### [facility] [address] [place] [address] Glucose [Mass/Vol] 245 mg/dL Normal 70-99 [facility] ([place] Comment on above: Performed By: #### C D #### [facility] [address] [place] [address] Glucose [Mass/Vol] 235 mg/dL Normal 70-99 [facility] ([place] Comment on above: Performed By: #### 9 4500-6 #### [facility] [address] [place] [address] Platelet poor plasma interna tional normalized ratio (INR) by coagulation assay (relatOrdered By: Verito Devi on 04-21-2022 INR Coag (PPP) [Relative time] 2.32 {INR} 0.80-2.00 [facility] Prothrombin Time INR w/o Cou mon 04-21-2022 PT Coag (Bld) [Time] 26.2 s High 9.5-12.9 [facility] ([place]) Comment on above: Performed By: #### 4 1653-7 #### [facility] [address] [place] [address] Prothrombin Time on Coumadin on 04-21-2022 INR Coag (PPP) [Relative time] 2.32 {INR} High 0.80-2.00 [facility] ([place]) Comment on above: Performed By: #### 9 4500-6 #### [facility] [address] [place] [address] Performed By: #### 4 1653-7 #### [facility] [address] [place] [address] Reflex Urn Culton 04-21-2022 Bacteria identified Cx Nom (U) ORGANISM ID: 1.1 - Presumptive [place] Count 50,000-100,000 CFU/ml Normal [facility] ([place]) Comment on above: Performed By: #### 4 1653-7 #### [facility] [address] [place] [address] Basic Metabolic Panelon 04-03 Anion gap [Moles/Vol] 11.0 mmol/L Normal 3-11 [facility] ([place]) Comment on above: Performed By: #### 6 30-4 #### [facility] [address] [place] [address] Calcium [Mass/Vol] 8.3 mg/dL Low 8.5-10.5 [facility] ([place]) Comment on above: Performed By: #### 6 30-4 #### [facility] [address] [place] [address] Chloride [Moles/Vol] 100 mmol/L Normal 98-107 [facility] ([place]) Comment on above: Performed By: #### 6 30-4 #### [facility] [address] [place] [address] CO2 [Moles/Vol] 21 mmol/L Normal 21-31 [facility] ([place] Comment on above: Performed By: #### 6 30-4 #### [facility] [address] [place] [address] Creatinine [Moles/Vol] 1.4 mg/dL High 0.6-1.3 [facility] ([place]) Comment on above: Performed By: #### 6 30-4 #### [facility] [address] [place] [address] Creatinine and Glomerular filtration rate.predicted panel (S/P/Bld) 60 mL/min Normal >60 [facility] ([place]) Comment on above: Performed By: #### 6 30-4 #### [facility] [address] [place] [address] GFR/1.73 sq M.predicted among non-blacks MDRD (S/P/Bld) [Vol rate/Area] 50 mL/min/{1.73_m2} Normal >60 [facility] ([place]) Comment on above: Performed By: #### 6 30-4 #### [facility] [address] [place] [address] Glucose [Mass/Vol] 203 mg/dL High 70-99 [facility] ([place]) Comment on above: Performed By: #### 6 30-4 #### [facility] [address] [place] [address] Potassium [Moles/Vol] 4.0 mmol/L Normal 3.6-5.0 [facility] ([place]) Comment on above: Performed By: #### 6 30-4 #### [facility] [address] [place] [address] Sodium [Moles/Vol] 132 mmol/L Low 135-145 [facility] ([place] Comment on above: Performed By: #### 6 30-4 #### [facility] [address] [place] [address] Urea nitrogen [Mass/Vol] 21 mg/dL High 6-20 [facility] ([place]) Comment on above: Performed By: #### 6 30-4 #### [facility] [address] [place] [address] C. diff Toxin Assayon 2021 C. difficile glutamate dehydrogenase and toxins A+B IA.rapid Ql (Stl) Negative Normal [facility] ([place]) Comment on above: Result Comment: Nega tive for toxigenic C. difficile Performed By: #### 2 1020-3 #### [facility] [address] [place] [address] CBC W/ Auto Diffon 2 Basophils (Bld) [#/Vol] 0.0 10*3/uL Normal 0.00-0.20 [facility] ([place]) Comment on above: Performed By: #### 2 1020-3 #### [facility] [address] [place] [address] Basophils/100 WBC (Bld) 0.3 % Normal 0.0-1.5 [facility] ([place]) Comment on above: Performed By: #### 2 1020-3 #### [address] [address] Eosinophils (Bld) [#/Vol] 0.0 10*3/uL Normal 0.00-0.33 [facility] ([place]) Comment on above: Performed By: #### 2 1020-3 #### [address] [address] Eosinophils/100 WBC (Bld) 0.4 % Normal 0.0-3.0 [facility] ([place]) Comment on above: Performed By: #### 2 1020-3 #### [address] [address] Erythrocyte distribution width (RBC) [Ratio] 13.5 % Normal 10.9-14.3 [facility] ([place]) Comment on above: Performed By: #### 2 1020-3 #### [address] [address] Hematocrit (Bld) [Volume fraction] 38.5 % Low 41.0-50.0 [facility] ([place]) Comment on above: Performed By: #### 2 1020-3 #### [address] [address] Hemoglobin (Bld) [Mass/Vol] 12.9 g/dL Low 13.5-16.5 [facility] ([place]) Comment on above: Performed By: #### 2 1020-3 #### [facility] [address] [place] [address] Lymphocytes Auto (Unsp spec) [#/Vol] 1.0 10*3/uL Low 1.10-4.80 [facility] ([place]) Comment on above: Performed By: #### 2 1020-3 #### [facility] [address] [place] [address] Lymphocytes/100 WBC (Bld) 12.1 % Low 24.0-44.0 [facility] ([place]) Comment on above: Performed By: #### 2 1020-3 #### [facility] [address] [place] [address] MCH (RBC) [Entitic mass] 29.7 pg Normal 28.0-34.0 [facility] ([place]) Comment on above: Performed By: #### 2 1020-3 #### [facility] [address] [place] [address] MCHC (RBC) [Mass/Vol] 33.6 g/dL Normal 33.0-37.0 [facility] ([place]) Comment on above: Performed By: #### 2 1020-3 #### [facility] [address] [place] [address] MCV (RBC) [Entitic vol] 88.4 fL Normal 80.0-100.0 [facility] ([place]) Comment on above: Performed By: #### 2 1020-3 #### [facility] [address] [place] [address] Monocytes (Bld) [#/Vol] 1.0 10*3/uL High 0.20-0.70 [facility] ([place]) Comment on above: Performed By: #### 2 1020-3 #### [address] [address] Monocytes/100 WBC (Bld) 11.5 % High 3.4-9.0 [facility] ([place]) Comment on above: Performed By: #### 2 1020-3 #### [address] [address] Neutrophils (Bld) [#/Vol] 6.4 10*3/uL Normal 1.83-8.70 [facility] ([place]) Comment on above: Performed By: #### 2 1020-3 #### [address] [address] Neutrophils/100 WBC (Bld) 75.7 % High 40.0-74.0 [facility] ([place]) Comment on above: Performed By: #### 2 1020-3 #### [address] [address] Platelet mean volume (Bld) [Entitic vol] 6.8 fL Low 7.4-10.4 [facility] ([place]) Comment on above: Performed By: #### 2 1020-3 #### [address] [address] Platelets (Bld) [#/Vol] 133 10*3/uL Low 150-450 [facility] ([place]) Comment on above: Performed By: #### 2 1020-3 #### [address] [address] RBC (Bld) [#/Vol] 4.36 10*6/uL Low 4.50-5.50 [facility] ([place]) Comment on above: Performed By: #### 2 1020-3 #### [address] [address] WBC (Bld) [#/Vol] 8.5 10*3/uL Normal 4.5-11.0 [facility] ([place]) Comment on above: Performed By: #### 2 1020-3 #### [address] [address] CO2 (BldV) [Moles/Vol]Ordere d By: Judy Boo on 04-20-2022 CO2 [Moles/Vol] 21.3 mmol/L 23- [facility] CT abdomen pelvis wo conon 1 06-21-2021 CT abdomen pelvis wo [facility] [address] [place] [address] CT Scan Report Signed Patient: CHARLI PORRAS R#: [id number] : 1950 Acct:[id number] Age/Sex: 71 / M Admit Date: 04/19/22 Loc: 3026-[address]: Verito Devi MD Ordering Physician: Judy Boo MD Date of Service: 04/20/22 Procedure(s): CT abdomen pelvis wo con Accession Number(s): [id number] cc: Judy oBo MD PHYSICIAN INDICATIONS: Pain Technique: Axial images [...] 03 Signed By: Yunior Hickey MD 04/20/221403 Caustic Room Operator: IBRAHIMA Greenberg [facility] ([place]) Gas panel (BldV)on CO2 (BldV) [Partial pressure] 30 mm[Hg] Low 39-55 [facility] ([place]) Comment on above: Performed By: #### 9 4500-6 #### [facility] [address] [place] [address] CO2 [Moles/Vol] 21.3 mmol/L Low 23-29 [facility] ([place]) Comment on above: Performed By: #### 9 4500-6 #### [facility] [address] [place] [address] HCO3 (Bld) [Moles/Vol] 20.4 mmol/L Low 22-28 [facility] ([place]) Comment on above: Performed By: #### 9 4500-6 #### [facility] [address] [place] [address] Oxygen (BldV) [Partial pressure] 117.0 mm[Hg] High 30-50 [facility] ([place]) Comment on above: Performed By: #### 9 4500-6 #### [facility] [address] [place] [address] pH (BldV) 7.44 [pH] High 7.31-7.42 [facility] ([place]) Comment on above: Performed By: #### 9 4500-6 #### [facility] [address] [place] [address] VBG Oxygen Saturation 99 % High 50-85 [facility] ([place]) Comment on above: Performed By: #### 9 4500-6 #### [facility] [address] [place] [address] Glucose Glucometer (BldC) [M ass/Vol]on 04-20-2022 Glucose [Mass/Vol] 164 mg/dL Normal 70-99 [facility] ([place]) Comment on above: Performed By: #### 9 4500-6 #### [facility] [address] [place] [address] Glucose [Mass/Vol] 176 mg/dL Normal 70-99 [facility] ([place]) Comment on above: Performed By: #### 2 1020-3 #### [facility] [address] [place] [address] Glucose [Mass/Vol] 178 mg/dL Normal 70-99 [facility] ([place] Comment on above: Performed By: #### 2 1020-3 #### [facility] [address] [place] [address] Glucose [Mass/Vol] 231 mg/dL Normal 70-99 [facility] ([place]) Comment on above: Performed By: #### 9 4500-6 #### [facility] [address] [place] [address] HCO3 (BldV) [Moles/Vol]Order ed By: Judy Boo on 04-20-2022 HCO3 (Bld) [Moles/Vol] 20.4 mmol/L 22-28 [facility] Hemoglobin A1con 04-20-2022 Average glucose Estimated from glycated hemoglobin (Bld) [Mass/Vol] 171 mg/dL Normal [facility] ([place]) Comment on above: Performed By: #### 3 2693-4 #### [facility] [address] [place] [address] HbA1c (Bld) [Mass fraction] 7.6 % High 4.0-6.0 [facility] ([place]) Comment on above: Performed By: #### 3 2693-4 #### [facility] [address] [place] [address] Natriuretic peptide B [Mass/ Vol]on 04-20-2022 Natriuretic peptide B (Bld) [Mass/Vol] 28 pg/mL Normal 0-100 [facility] ([place]) Comment on above: Performed By: #### 4 1653-7 #### [facility] [address] [place] [address] Natriuretic peptide B [Mass/ Vol]Ordered By: Judy Boo on 04-20-2022 Natriuretic peptide B (Bld) [Mass/Vol] 28 pg/mL 0-100 [facility] No Panel InformationOrdered By: Judy Boo on 04-20-2022 Venous Blood Oxygen Saturation 99 % 50-85 [facility] Prothrombin Time on Coumadin on 04-20-2022 INR Coag (PPP) [Relative time] 2.33 {INR} Normal 2.00-3.50 [facility] ([place]) Comment on above: Performed By: #### 3 2693-4 #### [facility] [address] [place] [address] Stool Clostridium difficile panel (glutamate dehydrogenase detection with detection oOrdered By: Judy Boo on 04-20-2022 C. difficile glutamate dehydrogenase and toxins A+B IA.rapid Ql (Stl) Negative [facility] Comment on above: Negative for toxigen ic C. difficile Venous blood pH measurementO rdered By: Judy Boo on 04-20-2022 pH (BldV) 7.44 [pH] 7.31-7.42 [facility] Venous blood partial pressur e of carbon dioxide measurementOrdered By: Judy Boo on 04-20-2022 CO2 (BldV) [Partial pressure] 30 mm[Hg] 39-55 [facility] Venous blood partial pressur e of oxygen measurementOrdered By: Judy Boo on 04-20-2022 Oxygen (BldV) [Partial pressure] 117.0 mm[Hg] 30-50 [facility] ALT (SGPT) ser/plasOrdered B y: Thompson Hayden on 04-19-2022 ALT [Catalytic activity/Vol] 27 U/L 10-63 [facility] Absolute lymphocyte countOrd ered By: Thompson Hayden on 04-19-2022 Lymphocytes Auto (Unsp spec) [#/Vol] 1.3 10*3/uL 1.10-4.80 [facility] Albumin [Mass/volume] in Ser um or PlasmaOrdered By: Thompson Hayden on 04-19-2022 Albumin [Mass/Vol] 4.1 g/dL 3.4-4.8 [facility] Albumin/Globulin [Mass Ratio ] in Serum or PlasmaOrdered By: Thompson Hayden on 04-19-2022 Albumin/Globulin [Mass ratio] 1.0 {ratio} 1.1-2.2 [facility] Alkaline phosphatase [Enzyma tic activity/volume] in Serum or PlasmaOrdered By: Thompson Hayden on 04-19-2022 ALP [Catalytic activity/Vol] 96 U/L 42-121 [facility] Aspartate aminotransferase [ Enzymatic activity/volume] in Serum or PlasmaOrdered By: Thompson Hayden on 04-19-2022 AST [Catalytic activity/Vol] 29 U/L 10-41 [facility] Automated leukocyte clumps c ount in urine sediment (number/area)Ordered By: Thompson Jackelyn on 04-19-2022 Leukocyte clumps Auto (Urine sed) [#/Area] Moderate /HPF NONE SEEN [facility] Bacteria [Presence] in Urine sediment by Light microscopyOrdered By: Thompson Jackelyn on 04-19-2022 Bacteria LM Ql (Urine sed) Trace /HPF NONE SEEN [facility] Basophils Auto (Bld) [#/Vol] Ordered By: [place] Jackelyn on 04-19-2022 Basophils (Bld) [#/Vol] 0.1 10*3/uL 0.00-0.20 [facility] Basophils/100 WBC Auto (Bld) Ordered By: [place] Jackelyn on 04-19-2022 Basophils/100 WBC (Bld) 0.7 % 0.0-1.5 [facility] Bilirubin.total [Mass/volume ] in Serum or PlasmaOrdered By: Thompson Hayden on 04-19-2022 Bilirubin [Mass/Vol] 1.2 mg/dL 0.3-1.5 [facility] Blood Cultureon 04-19-2022 Bacteria identified Anaer+Aer cx Nom (Unsp spec) Bacteria Spec Anaerobe+Aerobe Cult NO GROWTH 5 DAYS Normal [facility] ([place]) Comment on above: Performed By: #### 4 1653-7 #### [facility] [address] [place] [address] Blood creatine kinase-MB yenny surement (mass/volume)Ordered By: Judy Boo on 04-19-2022 CK.MB (Bld) [Mass/Vol] 0.9 ng/mL 0-9.0 [facility] Blood magnesium measurement (mass/volume)Ordered By: Thompson Hayden on 04-19-2022 Magnesium (Bld) [Mass/Vol] 1.7 mEq/L 1.6-2.6 [facility] CBC W/ Auto Diffon Basophils (Bld) [#/Vol] 0.1 10*3/uL Normal 0.00-0.20 [facility] ([place]) Comment on above: Performed By: #### C D #### [facility] [address] [place] [address] Basophils/100 WBC (Bld) 0.7 % Normal 0.0-1.5 [facility] ([place] Comment on above: Performed By: #### C D #### [facility] [address] [place] [address] Eosinophils (Bld) [#/Vol] 0.1 10*3/uL Normal 0.00-0.33 [facility] ([place]) Comment on above: Performed By: #### C D #### [facility] [address] [place] [address] Eosinophils/100 WBC (Bld) 0.6 % Normal 0.0-3.0 [facility] ([place]) Comment on above: Performed By: #### C D #### [facility] [address] [place] [address] Erythrocyte distribution width (RBC) [Ratio] 13.7 % Normal 10.9-14.3 [facility] ([place]) Comment on above: Performed By: #### C D #### [facility] [address] [place] [address] Hematocrit (Bld) [Volume fraction] 46.6 % Normal 41.0-50.0 [facility] ([place]) Comment on above: Performed By: #### C D #### [facility] [address] [place] [address] Hemoglobin (Bld) [Mass/Vol] 15.6 g/dL Normal 13.5-16.5 [facility] ([place]) Comment on above: Performed By: #### C D #### [facility] [address] [place] [address] Lymphocytes Auto (Unsp spec) [#/Vol] 1.3 10*3/uL Normal 1.10-4.80 [facility] ([place]) Comment on above: Performed By: #### C D #### [facility] [address] [place] [address] Lymphocytes/100 WBC (Bld) 12.6 % Low 24.0-44.0 [facility] ([place]) Comment on above: Performed By: #### C D #### [facility] [address] [place] [address] MCH (RBC) [Entitic mass] 29.7 pg Normal 28.0-34.0 [facility] ([place]) Comment on above: Performed By: #### C D #### [facility] [address] [place] [address] MCHC (RBC) [Mass/Vol] 33.4 g/dL Normal 33.0-37.0 [facility] ([place]) Comment on above: Performed By: #### C D #### [facility] [address] [place] [address] MCV (RBC) [Entitic vol] 88.9 fL Normal 80.0-100.0 [facility] ([place]) Comment on above: Performed By: #### C D #### [facility] [address] [place] [address] Monocytes (Bld) [#/Vol] 0.8 10*3/uL High 0.20-0.70 [facility] ([place]) Comment on above: Performed By: #### C D #### [facility] [address] [place] [address] Monocytes/100 WBC (Bld) 8.4 % Normal 3.4-9.0 [facility] ([place] Comment on above: Performed By: #### C D #### [address] [address] Neutrophils (Bld) [#/Vol] 7.8 10*3/uL Normal 1.83-8.70 [facility] ([place]) Comment on above: Performed By: #### C D #### [address] [address] Neutrophils/100 WBC (Bld) 77.7 % High 40.0-74.0 [facility] ([place]) Comment on above: Performed By: #### C D #### [address] [address] Platelet mean volume (Bld) [Entitic vol] 6.6 fL Low 7.4-10.4 [facility] ([place]) Comment on above: Performed By: #### C D #### [facility] [address] [place] [address] Platelets (Bld) [#/Vol] 165 10*3/uL Normal 150-450 [facility] ([place]) Comment on above: Performed By: #### C D #### [facility] [address] [place] [address] RBC (Bld) [#/Vol] 5.24 10*6/uL Normal 4.50-5.50 [facility] ([place]) Comment on above: Performed By: #### C D #### [address] [address] WBC (Bld) [#/Vol] 10.1 10*3/uL Normal 4.5-11.0 [facility] ([place]) Comment on above: Performed By: #### C D #### [address] [address] CK + isoenzymes totalOrdered By: Judy Boo on 04-19-2022 CK [Catalytic activity/Vol] 106 U/L 49-397 [facility] CK MB Bld-mCncon 04-19-2022 CK.MB (Bld) [Mass/Vol] 0.9 ng/mL Normal 0-9.0 [facility] ([place]) Comment on above: Performed By: #### 6 30-4 #### [facility] [address] [place] [address] CK SerPl-cCncon 04-19-2022 CK [Catalytic activity/Vol] 106 U/L Normal 49-397 [facility] ([place]) Comment on above: Performed By: #### 6 30-4 #### [facility] [address] [place], [place] [address] CT head/brain wo conon 04-19 CT head/brain wo con [facility] [address] [place], [place] [address] CT Scan Report Signed Patient: CHARLI PORRAS#: [id number] : 1950 Acct:[id number] Age/Sex: 71 / M Admit Date: 04/18/22 Loc: ER Attending Dr: Ordering Physician: Thompson Hayden MD Date of Service: 04/19/22 Procedure(s): CT head/brain wo con Accession Number(s): [id number] cc: Thompson Hayden MD INDICATION: Altered mental [...] 9 Signed By: Yimi Llanos MD 04/19/22424 Caustic Room Operator: Normal [facility] ([place]) Carbon dioxide, total [Moles /volume] in Serum or PlasmaOrdered By: Thompson Hayden on 04-19-2022 CO2 [Moles/Vol] 24 mmol/L 21-31 [facility] Chloride [Moles/volume] in S maricel or PlasmaOrdered By: Thompson Hayden on 04-19-2022 Chloride [Moles/Vol] 94 mmol/L 98-107 [facility] Comprehensive metabolic 2000 panelon 04-19-2022 Albumin [Mass/Vol] 4.1 g/dL Normal 3.4-4.[address] [facility]) Comment on above: Performed By: #### 4 1653-7 #### [facility] [address] [place] [address] Albumin/Globulin [Mass ratio] 1.0 {ratio} Low 1.1-2.2 [facility] ([place]) Comment on above: Performed By: #### 4 1653-7 #### [facility] [address] [place] [address] ALP [Catalytic activity/Vol] 96 U/L Normal 42-121 [facility] ([place]) Comment on above: Performed By: #### 4 1653-7 #### [facility] [address] [place] [address] ALT [Catalytic activity/Vol] 27 U/L Normal 10-[address] [facility]) Comment on above: Performed By: #### 4 1653-7 #### [facility] [address] [place] [address] Anion gap [Moles/Vol] 13.0 mmol/L High 3-11 [facility] ([place] Comment on above: Performed By: #### 4 1653-7 #### [facility] [address] [place] [address] AST [Catalytic activity/Vol] 29 U/L Normal 10-41 [facility] ([place]) Comment on above: Performed By: #### 4 1653-7 #### [facility] [address] [place] [address] Bilirubin [Mass/Vol] 1.2 mg/dL Normal 0.3-1.5 [facility] ([place]) Comment on above: Performed By: #### 4 1653-7 #### [facility] [address] [place] [address] Calcium [Mass/Vol] 9.0 mg/dL Normal 8.5-10.5 [facility] ([place]) Comment on above: Performed By: #### 4 1653-7 #### [facility] [address] [place] [address] Chloride [Moles/Vol] 94 mmol/L Low 98-107 [facility] ([place]) Comment on above: Performed By: #### 4 1653-7 #### [facility] [address] [place] [address] CO2 [Moles/Vol] 24 mmol/L Normal 21-31 [facility] ([place]) Comment on above: Performed By: #### 4 1653-7 #### [facility] [address] [place] [address] Creatinine [Moles/Vol] 1.5 mg/dL High 0.6-1.3 [facility] ([place]) Comment on above: Performed By: #### 4 1653-7 #### [facility] [address] [place] [address] Creatinine and Glomerular filtration rate.predicted panel (S/P/Bld) 56 mL/min Normal >60 [facility] ([place]) Comment on above: Performed By: #### 4 1653-7 #### [facility] [address] [place] [address] GFR/1.73 sq M.predicted among non-blacks MDRD (S/P/Bld) [Vol rate/Area] 46 mL/min/{1.73_m2} Normal >60 [facility] ([place]) Comment on above: Performed By: #### 4 1653-7 #### [facility] [address] [place] [address] Globulin (S) [Mass/Vol] 4.1 g/dL High 1.9-3.9 [facility] ([place]) Comment on above: Performed By: #### 4 1653-7 #### [facility] [address] [place] [address] Glucose [Mass/Vol] 273 mg/dL High 70-99 [facility] ([place]) Comment on above: Performed By: #### 4 1653-7 #### [address] [address] Potassium [Moles/Vol] 4.1 mmol/L Normal 3.6-5.0 [facility] ([place]) Comment on above: Performed By: #### 4 1653-7 #### [facility] [address] [place] [address] Protein [Mass/Vol] 8.2 g/dL High 5.9-7.8 [facility] ([place]) Comment on above: Performed By: #### 4 1653-7 #### [facility] [address] [place] [address] Sodium [Moles/Vol] 131 mmol/L Low 135-145 [facility] ([place]) Comment on above: Performed By: #### 4 1653-7 #### [facility] [address] [place] [address] Urea nitrogen [Mass/Vol] 18 mg/dL Normal 6-20 [facility] ([place]) Comment on above: Performed By: #### 4 1653-7 #### [facility] [address] [place], [place] [id number] (862) Creatinine and Glomerular fi ltration rate.predicted panel (S/P/Bld)Ordered By: Thompson Hayden on 04-19-2022 GFR/1.73 sq M.predicted MDRD (S/P/Bld) [Vol rate/Area] 56 mL/min/{1.73_m2} >60 [facility] Eosinophils Auto (Bld) [#/Vo l]Ordered By: Thompson Hadyen on 04-19-2022 Eosinophils (Bld) [#/Vol] 0.1 10*3/uL 0.00-0.33 [facility] Eosinophils/100 WBC Auto (Bl d)Ordered By: Thompson Hayden on 04-19-2022 Eosinophils/100 WBC (Bld) 0.6 % 0.0-3.0 [facility] Erythrocyte distribution wid th Auto (RBC) [Ratio]Ordered By: Thompson Hayden on 04-19-2022 Erythrocyte distribution width (RBC) [Ratio] 13.7 % 10.9-14.3 [facility] Estimated glomerular filtrat ion rate (GFR) non- AmericanOrdered By: Thompson Hayden on 04-19-2022 GFR/1.73 sq M.predicted among non-blacks MDRD (S/P/Bld) [Vol rate/Area] 46 mL/min/{1.73_m2} >60 [facility] Glucose Glucometer (BldC) [M ass/Vol]on 04-19-2022 Glucose [Mass/Vol] 267 mg/dL Normal 70-99 [facility] ([place]) Comment on above: Performed By: #### 2 1020-3 #### [facility] [address] [place], [place] [id number] (233) Glucose [Mass/Vol] 223 mg/dL Normal 70-99 [facility] ([place]) Comment on above: Performed By: #### 4 1653-7 #### [facility] [address] [place] [address] (481) Hematocrit Auto (Bld) [Volum e fraction]Ordered By: Thompson Hayden on 04-19-2022 Hematocrit (Bld) [Volume fraction] 46.6 % 41.0-50.0 [facility] Hemoglobin [Mass/volume] in BloodOrdered By: Thompson Hayden on 04-19-2022 Hemoglobin (Bld) [Mass/Vol] 15.6 g/dL 13.5-16.5 [facility] Influenza A,B [facility] by PCRon 04-19-2022 FLUBV Ag Ql (Unsp spec) Negative Normal Negative [facility] ([place] Comment on above: Performed By: #### 6 30-4 #### [facility] [address] [place] [address] Rapid Flu A Negative Normal Negative [facility] ([place]) Comment on above: Performed By: #### 6 30-4 #### [facility] [address] [place] [address] Lactate (Bld) [Moles/Vol]on 04-19-2022 Lactate [Moles/Vol] 1.3 mmol/L Normal 0.5-2.0 [facility] ([place]) Comment on above: Performed By: #### 2 1020-3 #### [facility] [address] [place] [address] Lactate [Moles/Vol] 2.9 mmol/L Critically high 0.5-2.0 [facility] ([place]) Comment on above: Result Comment: Crit ical result called to and read back by [] at 1517. Performed By: #### 3 2693-4 #### [facility] [address] [place] [address] Lactate (Bld) [Moles/Vol]Ord ered By: Thompson Hayden on 04-19-2022 Lactate [Moles/Vol] 2.9 mmol/L 0.5-2.0 [facility] Comment on above: Critical result call ed to and read back by [] at 1517. Leukocytes detection in urin e sediment by light microscopyOrdered By: Thompson Hayden on 04-19-2022 WBC LM Ql (Urine sed) >100 /HPF NONE SEEN [facility] Lymphocytes/100 WBC Auto (Bl d)Ordered By: Thompson Hayden on 04-19-2022 Lymphocytes/100 WBC (Bld) 12.6 % 24.0-44.0 [facility] MCH Auto (RBC) [Entitic mass ]Ordered By: Thompson Hayden on 04-19-2022 MCH (RBC) [Entitic mass] 29.7 pg 28.0-34.0 [facility] MCHC Auto (RBC) [Mass/Vol]Or dered By: Thompson Hayden on 04-19-2022 MCHC (RBC) [Mass/Vol] 33.4 g/dL 33.0-37.0 [facility] MCV (mean corpuscular volume ) determinationOrdered By: Thompson Hayden on 04-19-2022 MCV (RBC) [Entitic vol] 88.9 fL 80.0-100.0 [facility] Magnesium Bld-mCncon 022 Magnesium (Bld) [Mass/Vol] 1.7 mEq/L Normal 1.6-2.6 [facility] ([place]) Comment on above: Performed By: #### 4 1653-7 #### [facility] [address] [place] [address] Microscopic examination of u rineOrdered By: Thompson Hayden on 04-19-2022 Microscopic observation LM Nom (Urine sed) Yes [facility] Microscopic observation LM N om (Urine sed)on 04-19-2022 Transitional cells LM Ql (Urine sed) OCCASIONAL Normal NONE SEEN [facility] ([place]) Comment on above: Order Comment: Urine Collect Clean Catch Performed By: #### 6 30-4 #### [facility] [address] [place] [address] Monocytes Auto (Bld) [#/Vol] Ordered By: Thompson Hayden on 04-19-2022 Monocytes (Bld) [#/Vol] 0.8 10*3/uL 0.20-0.70 [facility] Monocytes/100 WBC Auto (Bld) Ordered By: Thompson Hayden on 04-19-2022 Monocytes/100 WBC (Bld) 8.4 % 3.4-9.0 [facility] Neutrophils Auto (Bld) [#/Vo l]Ordered By: Thompson Hayden on 04-19-2022 Neutrophils (Bld) [#/Vol] 7.8 10*3/uL 1.83-8.70 [facility] Neutrophils/100 WBC Auto (Bl d)Ordered By: Thompson Hayden on 04-19-2022 Neutrophils/100 WBC (Bld) 77.7 % 40.0-74.0 [facility] No Panel InformationOrdered By: Thompson Hayden on 04-19-2022 Procalcitonin 0.14 ng/mL 0.10-0.50 [facility] Comment on above: *PROCALCITONIN INTER PRETATION*Less than 0.5: Low risk for systemic infection.0.5 to 2.0: Moderate risk for systemic infection.Greater than 2.0: High risk for systemic infection.10.0 or greater: Likelihood of severe sepsis or septic shock. Influenza Type A (Rapid) Negative Negative [facility] Platelet mean volume Auto (B ld) [Entitic vol]Ordered By: Thompson Hayden on 04-19-2022 Platelet mean volume (Bld) [Entitic vol] 6.6 fL 7.4-10.4 [facility] Platelets Auto (Bld) [#/Vol] Ordered By: Thompson Hayden on 04-19-2022 Platelets (Bld) [#/Vol] 165 10*3/uL 150-450 [facility] Potassium [Moles/volume] in Serum or PlasmaOrdered By: Thompson Hayden on 04-19-2022 Potassium [Moles/Vol] 4.1 mmol/L 3.6-5.0 [facility] Procalcitoninon 04-19-2022 Procalcitonin 0.14 ng/mL Normal 0.10-0.50 [facility] ([place]) Comment on above: Result Comment: *PRO CALCITONIN INTERPRETATION* Less than 0.5: Low risk for systemic infection. 0.5 to 2.0: Moderate risk for systemic infection. Greater than 2.0: High risk for systemic infection. 10.0 or greater: Likelihood of severe sepsis or septic shock. Performed By: #### 2 1020-3 #### [facility] [address] [place] [address] Prothrombin Time INR w/o Cou mon 04-19-2022 INR Coag (PPP) [Relative time] 2.64 {INR} High 0.80-2.00 [facility] ([place]) Comment on above: Performed By: #### 9 4500-6 #### [facility] [address] [place] [address] PT Coag (Bld) [Time] 29.9 s High 9.5-12.9 [facility] ([place]) Comment on above: Performed By: #### 9 4500-6 #### [facility] [address] [place] [address] RBC Auto (Bld) [#/Vol]Ordere d By: Thompson Hayden on 04-19-2022 RBC (Bld) [#/Vol] 5.24 10*6/uL 4.50-5.50 [facility] RBC LM Ql (Urine sed)Ordered By: Thompson Hayden on 04-19-2022 RBC Ql (U) 10-20 /HPF NONE SEEN [facility] Rapid influenza B antigen de tectionOrdered By: Thompson Hayden on 04-19-2022 FLUBV Ag Ql (Unsp spec) Negative Negative [facility] Respiratory specimen COVID-1 9 virus RNA detectionOrdered By: Thompson Hayden on 04-19-2022 SARS-CoV-2 (COVID-19) RNA LIV+probe Ql (Resp) [facility] SARS-CoV2 PCRon 04-19-2022 SARS-CoV-2 (COVID-19) RNA LIV+probe [...] authorization is terminated or revoked sooner. Normal [facility] ([place]) Comment on above: Performed By: #### 9 4500-6 #### [facility] [address] [place] [address] Serum globulin measurement ( mass/volume)Ordered By: Thompson Hayden on 04-19-2022 Globulin (S) [Mass/Vol] 4.1 g/dL 1.9-3.9 [facility] Serum glucose measurement (m ass/volume)Ordered By: Thompson Hayden on 04-19-2022 Glucose [Mass/Vol] 273 mg/dL 70-99 [facility] Serum or plasma anion gap de termination (moles/volume)Ordered By: Thompson Hayden on 04-19-2022 Anion gap [Moles/Vol] 13.0 mmol/L 3-11 [facility] Serum or plasma calcium maricel urement (mass/volume)Ordered By: Thompson Hayden on 04-19-2022 Calcium [Mass/Vol] 9.0 mg/dL 8.5-10.5 [facility] Serum or plasma creatinine m easurement (moles/volume)Ordered By: Thompson Hayden on 04-19-2022 Creatinine [Moles/Vol] 1.5 mg/dL 0.6-1.3 [facility] Serum or plasma sodium measu rement (moles/volume)Ordered By: Thompson Hayden on 04-19-2022 Sodium [Moles/Vol] 131 mmol/L 135-145 [facility] Serum or plasma urea nitroge n measurement (mass/volume)Ordered By: Thompson Hayden on 04-19-2022 Urea nitrogen [Mass/Vol] 18 mg/dL 6-20 [facility] Total protein bloodOrdered B y: Thompson Barrytig on 04-19-2022 Protein [Mass/Vol] 8.2 g/dL 5.9-7.8 [facility] Troponin I SerPl-mCncon 04-03 Troponin I.cardiac [Mass/Vol] ng/mL Normal <0.03 [facility] ([place]) Comment on above: Performed By: #### 6 30-4 #### [facility] [address] [place] [address] Troponin I ser/plasOrdered B y: Judy Pompura on 04-19-2022 Troponin I.cardiac [Mass/Vol] ng/mL <0.03 [facility] Urinalysison 04-19-2022 Bilirubin+Urobilinogen Ql (U) Negative Normal NEGATIVE [facility] ([place]) Comment on above: Order Comment: Urine Collect Clean Catch Performed By: #### 6 30-4 #### [facility] [address] [place] [address] Glucose Auto test strip (U) [Mass/Vol] 1000 mg/dL Abnormal NEGATIVE [facility] ([place]) Comment on above: Order Comment: Urine Collect Clean Catch Performed By: #### 6 30-4 #### [facility] [address] [place] [address] Ketones Ql (U) Negative Normal NEGATIVE [facility] ([place]) Comment on above: Order Comment: Urine Collect Clean Catch Performed By: #### 6 30-4 #### [facility] [address] [place] [address] Nitrate Ql (U) Negative Normal NEGATIVE [facility] ([place]) Comment on above: Order Comment: Urine Collect Clean Catch Performed By: #### 6 30-4 #### [facility] [address] [place] [address] RBC Ql (U) SMALL Abnormal NEGATIVE [facility] ([place]) Comment on above: Order Comment: Urine Collect Clean Catch Performed By: #### 6 30-4 #### [facility] [address] [place] [address] Urobilinogen (U) [Mass/Vol] Negative Normal NEGATIVE [facility] ([place]) Comment on above: Order Comment: Urine Collect Clean Catch Performed By: #### 6 30-4 #### [facility] [address] [place] [address] WBC Visual Ql (U) TRACE Abnormal NEGATIVE [facility] ([place] Comment on above: Order Comment: Urine Collect Clean Catch Performed By: #### 6 30-4 #### [facility] [address] [place] [address] Appearance (U) HAZY Normal [facility] ([place]) Comment on above: Order Comment: Urine Collect Clean Catch Performed By: #### 6 30-4 #### [facility] [address] [place] [address] Color (U) YELLOW Normal [facility] ([place]) Comment on above: Order Comment: Urine Collect Clean Catch Performed By: #### 6 30-4 #### [facility] [address] [place] [address] pH (U) 5.0 [pH] Normal 4.6-8.0 [facility] ([place]) Comment on above: Order Comment: Urine Collect Clean Catch Performed By: #### 6 30-4 #### [facility] [address] [place] [address] Protein Auto test strip Ql (U) TRACE Abnormal NEGATIVE [facility] ([place]) Comment on above: Order Comment: Urine Collect Clean Catch Performed By: #### 6 30-4 #### [facility] [address] [place] [address] Specific gravity (U) [Rel density] 1.015 Normal 1.001-1.035 [facility] ([place]) Comment on above: Order Comment: Urine Collect Clean Catch Performed By: #### 6 30-4 #### [facility] [address] [place] [address] Urobilinogen Test strip (U) [Mass/Vol]Ordered By: Thompson Hayden on 04-19-2022 Urobilinogen (U) [Mass/Vol] Negative NEGATIVE [facility] WBC Auto (Bld) [#/Vol]Ordere d By: Thompson Hayden on 04-19-2022 WBC (Bld) [#/Vol] 10.1 10*3/uL 4.5-11.0 [facility] XR chest 1V portableon 04-19 XR chest 1V portable [facility] [address] [place] [address] XRay Report Signed Patient: CHARLI PORRAS R#: [id number] : 1950 Acct:[id number] Age/Sex: 71 / M Admit Date: 04/18/22 Loc: ER Attending Dr: Ordering Physician: Thompson Hayden MD Date of Service: 04/19/22 Procedure(s): XR chest 1V portable Accession Number(s): [id number] cc: Thompson Hayden MD INDICATION: Increased weakness [...] Signed By: Radu Carvalho MD 04/19/22 0100 Caustic Room Operator: Normal [facility] ([place]) ATHENAnikkie 03-10-2022 JEANNETTE Patient name: CHARLI PORRAS MR#: [id number] Date of Service: 03/10/22 Acc#: [id number] : 1950 Age: 71 Sex: M Dictated by: Denise Barnes NP Patient Name : CHARLI PORRAS (71yo, M) ID# [id number] Appt. Date/Time : 03/10/2022 02:15PM : 1950 Service Dept. : [facility]_PAIN MANAGEMENT Provider : DENISE BARNES APRN, CNP Insurance Med Primary[place] (MEDICARE REPLACEMENT/ADVANTAGE - HMO) Insurance # : [id number] Policy/Group # : [id number] Med Secondary: [facility] - DOS PRIOR TO 2022 (MEDICAID REPLACEMENT - HMO) Insurance # : [id number] Policy/Group # : [id number] Prescription: [facility] - Member is eligible. details Chief Complaint *pain management pain in legs and back Patient's Care Team Primary Care Provider: ERICKA CASSIDY MD: [address] [place] [address], , Referring Provider: SARAH [facility]: [address] [place] [address], , Other: CHARISSE VALENCIA MD: [address] [place] [address], , Patient's Pharmacies [facility] (ERX): [address] [address], , Vitals BP: 154/75 sitting R arm [...] 03/04/21 filled Source: (more content not included)... [facility] 01-08-2022 [place] Patient name: CHARLI PORRAS MR#: [id number] Date of Service: 01/08/22 Acc#: [id number] : 1950 Age: 71 Sex: M Dictated by: Maryan Tony MD Patient Name : CHARLI PORRAS (71yo, M) ID# [id number] Appt. Date/Time : 01/08/2022 01:15PM : 1950 Service Dept. : [facility]_PAIN MANAGEMENT Provider : MARYAN TONY M.D. Insurance Med Primary: [place] (MEDICARE REPLACEMENT/ADVANTAGE - HMO) Insurance # : [id number] Policy/Group # : [id number] Med Secondary: [facility] ([place] REPLAC[place] - HMO) Insurance # : [id number] Policy/Group # : [id number] Prescription: [facility] - Member is eligible. details Prescription: [facility] - Member is eligible. details Chief Complaint *pain management REFILLS; C/O PAIN FROM BACK TO FEET - ALL OVER; WOULD LIKE TO GET AN INJECTION AVING A LOT OF SCIATIC NERVE PAIN DOWN RIGHT SIDE Patient's Care Team Primary Care Provider: ERICKA CASSIDY MD: [address] [place] [address], , Referring Provider: SARAH FELIPEI: [address] [place] [address], Ph [phone], Other: CHARISSE VALENCIA MD: [address] [place] [address], , ax Patient's Pharmacies [email or web address] ([place]): [address] [address], Ph [phone], Vitals BP: 166/88 sitting L arm 01/08/2022 [...] QUEtiapine 100 mg (more content not included)... [facility] 11-07-2021 [place] Patient name: CHARLI PORRAS MR#: [id number] Date of Service: 11/07/21 Acc#: [id number] : 1950 Age: 71 Sex: M Dictated by: Maryan Tony MD Patient Name : CHARLI PORRAS (71yo, M) ID# [id number] Appt. Date/Time : 11/07/2021 09:45AM : 1950 Service Dept. : [facility]PAIN MANAGEMENT Provider : MARYAN TONY M.D. Insurance Med Primary: [facility] - MEDIBLUE (MEDICARE REPLACEMENT/ADVANTAGE - HMO) Insurance # : [id number] Policy/Group # : [id number] Med Secondary: [facility] (MED[place] REPLACEMENT - HMO) Insurance # : [id number] Policy/Group # : [id number] Prescription: [facility] - Member is eligible. details Prescription: [employer] - Member is eligible. details Chief Complaint *pain management refills; c/o pain all over mostly back and legs Patient's Care Team Primary Care Provider: ERICKA CASSIDY MD: [address] [place] [address], , Referring Provider: SARAH FELIPEI: [address] [place] [address], Ph [phone], Other: CHARISSE VALENCIA MD: [address] [place] [address], , ax Patient's Pharmacies [email or web address] ([place]): [address] [address], Ph [phone], Vitals BP: 141/59 sitting R arm 11/07/2021 [...] Name: risperiDONE 1 (more content not included)... [facility] 08-29-2021 [place] Patient name: CHARLI PORRAS MR#: [id number] Date of Service: 08/29/21 Acc#: [id number] : 1950 Age: 71 Sex: M Dictated by: Maryan Tony MD Patient Name : CHARLI PORRAS (71yo, M) ID# [id number] Appt. Date/Time : 08/29/2021 08:30AM : 1950 [facility] Provider : MARYAN TONY M.D. Insurance Med Primary: [facility] - MEDIBLUE (MEDICARE REPLACEMENT/ADVANTAGE - HMO) Insurance # : [id number] Policy/Group # : [id number] Med Secondary: [facility] (MED[place]PLACEMENT - HMO) Insurance # : [id number] Policy/Group # : [id number] Prescription: [facility] - Member is eligible. details Prescription: [employer] - Member is eligible. details Chief Complaint medication refill, *pain management refill Patient's Care Team Primary Care Provider: ERICKA CASSIDY MD: [address] [place] [address], , Referring Provider: SARAH FELIPEI: [address] [place] [address], Ph [phone], Other: CHARISSE VALENCIA MD: [address] [place] [address], , ax Patient's Pharmacies [email or web address] ([place]): [address] [address], Ph [phone], Vitals BP: 104/71 sitting R arm 08/29/2021 [...] AREA(S) Date: 11/13/20 filled Source: [email or web address] Name: donepeziL 10 mg tablet TAKE 1 [...] by transdermal route. Date: 08/08/21 filled Source: [email or web address] Name: rivastigmine 4.6 mg/24 hour transdermal patch APPLY 1 PATCH TRANSDERMALLYRYAN NDIAYE (more content not included)... Normal [facility] BASIC METABOLIC PANELon 07-02 Calcium [Mass/Vol] 9.0 mg/dL Normal 8.5-10.5 [facility] Comment on above: Performed By: #### C OVID19 074437 #### [facility] [address] [place] [address] Chloride [Moles/Vol] 98 mmol/L Normal 98-107 [facility] Comment on above: Performed By: #### C OVID19 192398 #### [facility] [address] [place] [address] CO2 [Moles/Vol] 29 mmol/L Normal 21-32 [facility] Comment on above: Performed By: #### C OVID19 027624 #### [facility] [address] [place] [address] Creatinine [Mass/Vol] 1.32 mg/dL High 0.70-1.30 [facility] Comment on above: Performed By: #### C OVID19 326010 #### [facility] [address] [place] [address] EST GLOM FILT > [address] [facility] Comment on above: Result Comment: Result [...] 15 . Performed By: #### C OVID19 870171 #### [facility] [address] [place] [address] ESTIMATED GLOM FILT RATE 53 mL/min/ Low [facility] Comment on above: Performed By: #### C OVID19 649460 #### [facility] [address] [place] [address] Glucose [Mass/Vol] 303 mg/dL High 65-99 [facility] Comment on above: Performed By: #### C OVID19 653408 #### [facility] [address] [place] [address] Potassium [Moles/Vol] 3.2 mmol/L Low 3.5-5.1 [facility] Comment on above: Performed By: #### C OVID19 835702 #### [facility] [address] [place] [address] Sodium [Moles/Vol] 135 mmol/L Low 136-145 [facility] Comment on above: Performed By: #### C OVID19 660382 #### [facility] [address] [place] [address] Urea nitrogen [Mass/Vol] 21 mg/dL Normal 7-24 [facility] Comment on above: Performed By: #### C OVID19 015667 #### [facility] [address] [place] [address] CBC with DIFFERENTIALon 07-02 Basophils (Bld) [#/Vol] 0.1 10*3/uL Normal 0.0-0.1 [facility] Comment on above: Performed By: #### C OVID19 132127 #### [facility] [address] [place] [address] Basophils/100 WBC (Bld) 0.7 % Normal 0.0-1.0 [facility] Comment on above: Performed By: #### C OVID19 619981 #### [facility] [address] [place] [address] Eosinophils (Bld) [#/Vol] 0.3 10*3/uL Normal 0.0-0.4 [facility] Comment on above: Performed By: #### C OVID19 988645 #### [facility] [address] [place] [address] Eosinophils/100 WBC (Bld) 3.5 % Normal 1.0-4.0 [facility] Comment on above: Performed By: #### C OVID19 502482 #### [facility] [address] [place] [address] Hematocrit (Bld) [Volume fraction] 41.3 % Low 42.0-52.0 [facility] Comment on above: Performed By: #### C OVID19 455645 #### [facility] [address] [place] [address] Hemoglobin (Bld) [Mass/Vol] 13.6 g/dL Low 14.0-18.0 [facility] Comment on above: Performed By: #### C OVID19 414009 #### [facility] [address] [place] [address] IG # 0.1 10*3/uL Normal 0.0-0.1 [facility] Comment on above: Performed By: #### C OVID19 397250 #### [facility] [address] [place] [address] IG % 1.0 % Normal 0.0-1.0 [facility] Comment on above: Performed By: #### C OVID19 203846 #### [facility] [address] [place] [address] Lymphocytes (Bld) [#/Vol] 1.8 10*3/uL Normal 1.3-4.4 [facility] Comment on above: Performed By: #### C OVID19 568023 #### [facility] [address] [place] [address] Lymphocytes/100 WBC (Bld) 25.4 % Low 27.0-41.0 [facility] Comment on above: Performed By: #### C OVID19 021273 #### [facility] [address] [place] [address] MCV (RBC) [Entitic vol] 89.2 fL Normal 80.0-94.0 [facility] Comment on above: Performed By: #### C OVID19 093578 #### [facility] [address] [place] [address] MEAN CORPUSCULAR HGB 29.4 pg Normal 27.0-31.0 [facility] Comment on above: Performed By: #### C OVID19 023542 #### [facility] [address] [place] [address] MEAN CORPUSCULAR HGB CONC 32.9 g/dl Low 33.0-37.0 [facility] Comment on above: Performed By: #### C OVID19 463293 #### [facility] [address] [place] [address] Monocytes (Bld) [#/Vol] 0.6 10*3/uL Normal 0.1-1.0 [facility] Comment on above: Performed By: #### C OVID19 768571 #### [facility] [address] [place] [address] Monocytes/100 WBC (Bld) 7.8 % Normal 3.0-9.0 [facility] Comment on above: Performed By: #### C OVID19 681535 #### [facility] [address] [place] [address] Neutrophils (Bld) [#/Vol] 4.4 10*3/uL Normal 2.3-7.9 [facility] Comment on above: Performed By: #### C OVID19 063394 #### [facility] [address] [place] [address] Neutrophils/100 WBC (Bld) 61.6 % Normal 47.0-73.0 [facility] Comment on above: Performed By: #### C OVID19 914178 #### [facility] [address] [place] [address] NUCLEATED RED BLOOD CELL 0.0 10*3/uL Normal 0.0-0.0 [facility] Comment on above: Performed By: #### C OVID19 965186 #### [facility] [address] [place] [address] NUCLEATED RED BLOOD CELL 0.0 % Normal 0.0-0.0 [facility] Comment on above: Performed By: #### C OVID19 103232 #### [facility] [address] [place] [address] PLATELET COUNT AUTOMATED 137 10*3/uL Normal 130-400 [facility] Comment on above: Performed By: #### C OVID19 821419 #### [facility] [address] [place] [address] Platelet mean volume (Bld) [Entitic vol] 10.0 fL Normal 9.6-12.3 [facility] Comment on above: Performed By: #### C OVID19 468495 #### [facility] [address] [place] [address] RBC (Bld) [#/Vol] 4.63 10*6/uL Normal 4.50-5.90 [facility] Comment on above: Performed By: #### Jagjit OVID19 588893 #### [facility] [address] [place] [address] RED CELL DISTRI WIDTH 14.6 % High 0-14.5 [facility] Comment on above: Performed By: #### Jagjit OVID19 077782 #### [facility] [address] [place] [address] WBC (Bld) [#/Vol] 7.1 10*3/uL Normal 4.8-10.8 [facility] Comment on above: Performed By: #### C OVID19 453642 #### [facility] [address] [place] [address] NOVL CORONAVIRUS NAAon 07-12 SARS-CoV-2 (COVID-19) RNA LIV+probe Ql (Unsp spec) Not detected Normal Not Detected [facility] Comment on above: Order Comment: Is th is patient considered a Person Under Investigation? N Result Comment: This nucleic acid amplification test was developed and its performance characteristics determined by [employer]. Nucleic acid amplification tests include RT- PCR [...] this assay. Performed By: #### C OVID19 659361 #### [facility] [address] [place] [address] CHEST AP ONLY (1V)on 022 [id number] Name: CHARLI PORRAS Jagjit Phys: LANCE MULLINS DO : 1950 Age: 71 Sex: M Acct: [id number] Loc: 425 1 Exam Date: 07/11/2021 Status: ADM IN Radiology No: [id number] Unit No: [id number] EXAM# TYPE/EXAM RESULT [id number] RAD/CHEST AP ONLY (1V) SEE REPORT INDICATION: [...] CASSIDY Technologist: DAIN,MURIEL L. Transcribed Date/Time: 07/11/2021 (1234) Caustic Room Operator: LEEANNE Printed Date/Time: 07/11/2021 (2513) [address] [facility] SARS COVID 19 ANTIGENon 07-02 SARS [...] COVID-19. NEGATIVE FOR SARS ANTIGEN Normal [facility] Comment on above: Performed By: #### C OVID19 963107 #### [facility] [address] [place] [address] BASIC METABOLIC PANELon -0 Calcium [Mass/Vol] 8.9 mg/dL Normal 8.5-10.5 [facility] Comment on above: Performed By: #### B MP, CBCD #### [facility] [address] [place] [address] Chloride [Moles/Vol] 99 mmol/L Normal 98-107 [facility] Comment on above: Performed By: #### B MP, CBCD #### [facility] [address] [place] [address] CO2 [Moles/Vol] 33 mmol/L High 21-32 [facility] Comment on above: Performed By: #### B MP, CBCD #### [facility] [address] [place] [address] Creatinine [Mass/Vol] 1.19 mg/dL Normal 0.70-1.30 [facility] Comment on above: Performed By: #### B MP, CBCD #### [facility] [address] [place] [address] EST GLOM FILT > 60 [facility] Comment on above: Result Comment: Result [...] By: #### B MP, CBCD #### [facility] [address] [place] [address] ESTIMATED GLOM FILT RATE 60 mL/min/ Normal [facility] Comment on above: Performed By: #### B MP, CBCD #### [facility] [address] [place] [address] Glucose [Mass/Vol] 258 mg/dL High 65-99 [facility] Comment on above: Performed By: #### B MP, CBCD #### [facility] [address] [place] [address] Potassium [Moles/Vol] 3.3 mmol/L Low 3.5-5.1 [facility] Comment on above: Performed By: #### B MP, CBCD #### [facility] [address] [place] [address] Sodium [Moles/Vol] 136 mmol/L Normal 136-145 [facility] Comment on above: Performed By: #### B MP, CBCD #### [facility] [address] [place] [address] Urea nitrogen [Mass/Vol] 19 mg/dL Normal 7-24 [facility] Comment on above: Performed By: #### B MP, CBCD #### [facility] [address] [place] [address] CBC with DIFFERENTIALon 03-0 -2021 Basophils (Bld) [#/Vol] 0.1 10*3/uL Normal 0.0-0.1 [facility] Comment on above: Performed By: #### B MP, CBCD #### [facility] [address] [place] [address] Basophils/100 WBC (Bld) 0.8 % Normal 0.0-1.0 [facility] Comment on above: Performed By: #### B MP, CBCD #### [facility] [address] [place] [address] Eosinophils (Bld) [#/Vol] 0.4 10*3/uL Normal 0.0-0.4 [facility] Comment on above: Performed By: #### B MP, CBCD #### [facility] [address] [place] [address] Eosinophils/100 WBC (Bld) 6.5 % High 1.0-4.0 [facility] Comment on above: Performed By: #### B MP, CBCD #### [facility] [address] [place] [address] Hematocrit (Bld) [Volume fraction] 42.4 % Normal 42.0-52.0 [facility] Comment on above: Performed By: #### B MP, CBCD #### [facility] [address] [place] [address] Hemoglobin (Bld) [Mass/Vol] 14.1 g/dL Normal 14.0-18.0 [facility] Comment on above: Performed By: #### B MP, CBCD #### [facility] [address] [place] [address] IG # 0.1 10*3/uL Normal 0.0-0.1 [facility] Comment on above: Performed By: #### B MP, CBCD #### [facility] [address] [place] [address] 92405 IG % 1.2 % High 0.0-1.0 [facility] Comment on above: Performed By: #### B MP, CBCD #### [facility] [address] [place] [address] Lymphocytes (Bld) [#/Vol] 1.5 10*3/uL Normal 1.3-4.4 [facility] Comment on above: Performed By: #### B MP, CBCD #### [facility] [address] [place] [address] 27465 Lymphocytes/100 WBC (Bld) 23.3 % Low 27.0-41.0 [facility] Comment on above: Performed By: #### B MP, CBCD #### [facility] [address] [place] [address] 79407 MCV (RBC) [Entitic vol] 88.9 fL Normal 80.0-94.0 [facility] Comment on above: Performed By: #### B MP, CBCD #### [facility] [address] [place] [address] 58581 MEAN CORPUSCULAR HGB 29.6 pg Normal 27.0-31.0 [facility] Comment on above: Performed By: #### B MP, CBCD #### [facility] [address] [place] [address] 58081 MEAN CORPUSCULAR HGB CONC 33.3 g/dl Normal 33.0-37.0 [facility] Comment on above: Performed By: #### B MP, CBCD #### [facility] [address] [place] [address] 56887 Monocytes (Bld) [#/Vol] 0.4 10*3/uL Normal 0.1-1.0 [facility] Comment on above: Performed By: #### B MP, CBCD #### [facility] [address] [place] [address] 41991 Monocytes/100 WBC (Bld) 6.8 % Normal 3.0-9.0 [facility] Comment on above: Performed By: #### B MP, CBCD #### [facility] [address] [place] [address] 25831 Neutrophils (Bld) [#/Vol] 4.0 10*3/uL Normal 2.3-7.9 [facility] Comment on above: Performed By: #### B MP, CBCD #### [facility] [address] [place] [address] 04387 Neutrophils/100 WBC (Bld) 61.4 % Normal 47.0-73.0 [facility] Comment on above: Performed By: #### B MP, CBCD #### [facility] [address] [place] [address] 97733 NUCLEATED RED BLOOD CELL 0.0 10*3/uL Normal 0.0-0.0 [facility] Comment on above: Performed By: #### B MP, CBCD #### [facility] [address] [place] [address] 91935 NUCLEATED RED BLOOD CELL 0.0 % Normal 0.0-0.0 [facility] Comment on above: Performed By: #### B MP, CBCD #### [facility] [address] [place] [address] PLATELET COUNT AUTOMATED 120 10*3/uL Low 130-400 [facility] Comment on above: Performed By: #### B MP, CBCD #### [facility] [address] [place] [address] Platelet mean volume (Bld) [Entitic vol] 8.9 fL Low 9.6-12.3 [facility] Comment on above: Performed By: #### B MP, CBCD #### [facility] [address] [place] [address] 42901 RBC (Bld) [#/Vol] 4.77 10*6/uL Normal 4.50-5.90 [facility] Comment on above: Performed By: #### B MP, CBCD #### [facility] [address] [place] [address] 53050 RED CELL DISTRI WIDTH 14.6 % High 0-14.5 [facility] Comment on above: Performed By: #### B MP, CBCD #### [facility] [address] [place] [address] 33471 WBC (Bld) [#/Vol] 6.4 10*3/uL Normal 4.8-10.8 [facility] Comment on above: Performed By: #### B MP, CBCD #### [facility] [address] [place] [address] 75348 BASIC METABOLIC PANELon 03-0 Calcium [Mass/Vol] 9.0 mg/dL Normal 8.5-10.5 [facility] Comment on above: Performed By: #### C OVID19 [id number] #### [facility] [address] [place] [address] Chloride [Moles/Vol] 98 mmol/L Normal 98-107 [facility] Comment on above: Performed By: #### C OVID19 [id number] #### [facility] [address] [place] [address] CO2 [Moles/Vol] 31 mmol/L Normal 21-32 [facility] Comment on above: Performed By: #### C OVID19 [id number] #### [facility] [address] [place] [address] Creatinine [Mass/Vol] 1.32 mg/dL High 0.70-1.30 [facility] Comment on above: Performed By: #### C OVID19 [id number] #### [facility] [address] [place] [address] EST GLOM FILT > [address] [facility] Comment on above: Result Comment: Result [...] 15 . Performed By: #### C OVID19 [id number] #### [facility] [address] [place] [address] ESTIMATED GLOM FILT RATE 53 mL/min/ Low [facility] Comment on above: Performed By: #### C OVID19 [id number] #### [facility] [address] [place] [address] Glucose [Mass/Vol] 290 mg/dL High 65-99 [facility] Comment on above: Performed By: #### C OVID19 [id number] #### [facility] [address] [place] [address] Potassium [Moles/Vol] 3.2 mmol/L Low 3.5-5.1 [facility] Comment on above: Performed By: #### C OVID19 665607 #### [facility] [address] [place] [address] Sodium [Moles/Vol] 136 mmol/L Normal 136-145 [facility] Comment on above: Performed By: #### C OVID19 887253 #### [facility] [address] [place] [address] Urea nitrogen [Mass/Vol] 19 mg/dL Normal 7-24 [facility] Comment on above: Performed By: #### C OVID19 [id number] #### [facility] [address] [place] [address] PROTHROMBIN TIMEon 2 INTERNATIONAL NORM RATIO 2.0 Normal 2.0-3.5 [facility] Comment on above: Result Comment: INR THERAPEUTIC RANGE: GROUP A 2.0-3.0 INR GROUP B 2.5-3.5 INR GROUP A SUGGESTED INDICATIONS: PROPHYLAXIS AND TREATMENT OF VENOUS THROMBOSIS TREATMENT OF PULMONARY EMBOLISM ATRIAL FIBRILLATION GROUP B SUGGESTED INDICATIONS: MECHANICAL PROSTHETIC VALVES Performed By: #### B MP, CBCD #### [facility] [address] [place] [address] PT Coag (PPP) [Time] 19.3 s High 8.9-12.2 [facility] Comment on above: Performed By: #### B MP, CBCD #### [facility] [address] [place] [address] BASIC METABOLIC PANELon Calcium [Mass/Vol] 9.1 mg/dL Normal 8.5-10.5 [facility] Comment on above: Performed By: #### B MP, CBCD #### [facility] [address] [place] [address] Chloride [Moles/Vol] 95 mmol/L Low 98-107 [facility] Comment on above: Performed By: #### B MP, CBCD #### [facility] [address] [place] [address] CO2 [Moles/Vol] 30 mmol/L Normal 21-32 [facility] Comment on above: Performed By: #### B MP, CBCD #### [facility] [address] [place] [address] Creatinine [Mass/Vol] 1.44 mg/dL High 0.70-1.30 [facility] Comment on above: Performed By: #### B MP, CBCD #### [facility] [address] [place] [address] EST GLOM FILT 58 ml/min [facility] Comment on above: Result Comment: Result Units: [...] By: #### B MP, CBCD #### [facility] [address] [place] [address] ESTIMATED GLOM FILT RATE 48 mL/min/ [facility] Comment on above: Performed By: #### B MP, CBCD #### [facility] [address] [place] [address] Glucose [Mass/Vol] 379 mg/dL High 65-99 [facility] Comment on above: Performed By: #### B MP, CBCD #### [facility] [address] [place] [address] Potassium [Moles/Vol] 3.2 mmol/L Low 3.5-5.1 [facility] Comment on above: Performed By: #### B MP, CBCD #### [facility] [address] [place] [address] Sodium [Moles/Vol] 133 mmol/L Low 136-145 [facility] Comment on above: Performed By: #### B MP, CBCD #### [facility] [address] [place] [address] Urea nitrogen [Mass/Vol] 22 mg/dL Normal 7-24 [facility] Comment on above: Performed By: #### B MP, CBCD #### [facility] [address] [place] [address] BLOOD CULTURE AEROBICon -0 BLOOD CULTURE AEROBIC BLOOD CULTURE AERO BIC NO BACTERIAL GROWTH BLOOD CULTURE ANAEROBIC NO BACTERIAL GROWTH Normal [facility] Comment on above: Performed By: #### B MP, CBCD #### [facility] [address] [place] [address] 20899 CBC with DIFFERENTIALon Basophils (Bld) [#/Vol] 0.1 10*3/uL Normal 0.0-0.1 [facility] Comment on above: Performed By: #### B MP, CBCD #### [facility] [address] [place] [address] 77131 Basophils/100 WBC (Bld) 0.8 % Normal 0.0-1.0 [facility] Comment on above: Performed By: #### B MP, CBCD #### [facility] [address] [place] [address] 90441 Eosinophils (Bld) [#/Vol] 0.3 10*3/uL Normal 0.0-0.4 [facility] Comment on above: Performed By: #### B MP, CBCD #### [facility] [address] [place] [address] 47871 Eosinophils/100 WBC (Bld) 3.8 % Normal 1.0-4.0 [facility] Comment on above: Performed By: #### B MP, CBCD #### [facility] [address] [place] [address] 02960 Hematocrit (Bld) [Volume fraction] 40.9 % Low 42.0-52.0 [facility] Comment on above: Performed By: #### B MP, CBCD #### [facility] [address] [place] [address] Hemoglobin (Bld) [Mass/Vol] 13.6 g/dL Low 14.0-18.0 [facility] Comment on above: Performed By: #### B MP, CBCD #### [facility] [address] [place] [address] IG # 0.1 10*3/uL Normal 0.0-0.1 [facility] Comment on above: Performed By: #### B MP, CBCD #### [facility] [address] [place] [address] IG % 1.2 % High 0.0-1.0 [facility] Comment on above: Performed By: #### B MP, CBCD #### [facility] [address] [place] [address] Lymphocytes (Bld) [#/Vol] 1.8 10*3/uL Normal 1.3-4.4 [facility] Comment on above: Performed By: #### B MP, CBCD #### [facility] [address] [place] [address] Lymphocytes/100 WBC (Bld) 23.6 % Low 27.0-41.0 [facility] Comment on above: Performed By: #### B MP, CBCD #### [facility] [address] [place] [address] MCV (RBC) [Entitic vol] 89.9 fL Normal 80.0-94.0 [facility] Comment on above: Performed By: #### B MP, CBCD #### [facility] [address] [place] [address] MEAN CORPUSCULAR HGB 29.9 pg Normal 27.0-31.0 [facility] Comment on above: Performed By: #### B MP, CBCD #### [facility] [address] [place] [address] MEAN CORPUSCULAR HGB CONC 33.3 g/dl Normal 33.0-37.0 [facility] Comment on above: Performed By: #### B MP, CBCD #### [facility] [address] [place] [address] Monocytes (Bld) [#/Vol] 0.5 10*3/uL Normal 0.1-1.0 [facility] Comment on above: Performed By: #### B MP, CBCD #### [facility] [address] [place] [address] 17314 Monocytes/100 WBC (Bld) 7.0 % Normal 3.0-9.0 [facility] Comment on above: Performed By: #### B MP, CBCD #### [facility] [address] [place] [address] 30563 Neutrophils (Bld) [#/Vol] 4.8 10*3/uL Normal 2.3-7.9 [facility] Comment on above: Performed By: #### B MP, CBCD #### [facility] [address] [place] [address] 29631 Neutrophils/100 WBC (Bld) 63.6 % Normal 47.0-73.0 [facility] Comment on above: Performed By: #### B MP, CBCD #### [facility] [address] [place] [address] 63673 NUCLEATED RED BLOOD CELL 0.0 10*3/uL Normal 0.0-0.0 [facility] Comment on above: Performed By: #### B MP, CBCD #### [facility] [address] [place] [address] 51498 NUCLEATED RED BLOOD CELL 0.0 % Normal 0.0-0.0 [facility] Comment on above: Performed By: #### B MP, CBCD #### [facility] [address] [place] [address] 37649 PLATELET COUNT AUTOMATED 138 10*3/uL Normal 130-400 [facility] Comment on above: Performed By: #### B MP, CBCD #### [facility] [address] [place] [address] 05828 Platelet mean volume (Bld) [Entitic vol] 9.6 fL Normal 9.6-12.3 [facility] Comment on above: Performed By: #### B MP, CBCD #### [facility] [address] [place] [address] RBC (Bld) [#/Vol] 4.55 10*6/uL Normal 4.50-5.90 [facility] Comment on above: Performed By: #### B MP, CBCD #### [facility] [address] [place] [address] RED CELL DISTRI WIDTH 14.6 % High 0-14.5 [facility] Comment on above: Performed By: #### B MP, CBCD #### [facility] [address] [place] [address] WBC (Bld) [#/Vol] 7.5 10*3/uL Normal 4.8-10.8 [facility] Comment on above: Performed By: #### B MP, CBCD #### [facility] [address] [place] [address] PROTHROMBIN TIMEon 2 INTERNATIONAL NORM RATIO 1.7 Low 2.0-3.5 [facility] Comment on above: Result Comment: INR THERAPEUTIC RANGE: GROUP A 2.0-3.0 INR GROUP B 2.5-3.5 INR GROUP A SUGGESTED INDICATIONS: PROPHYLAXIS AND TREATMENT OF VENOUS THROMBOSIS TREATMENT OF PULMONARY EMBOLISM ATRIAL FIBRILLATION GROUP B SUGGESTED INDICATIONS: MECHANICAL PROSTHETIC VALVES Performed By: #### C OVID19 [id number] #### [facility] [address] [place] [address] PT Coag (PPP) [Time] 16.8 s High 8.9-12.2 [facility] Comment on above: Performed By: #### C OVID19 [id number] #### [facility] [address] [place] [address] NOVL CORONAVIRUS NAAon 07-07 SARS-CoV-2 (COVID-19) RNA LIV+probe Ql (Unsp spec) Not detected Normal Not Detected [facility] Comment on above: Order Comment: Is th is patient considered a Person Under Investigation? NADDITIONAL INSTRUCTIONS: FOR SNF Result Comment: This nucleic acid amplification test was developed and its performance characteristics determined by [employer]. Nucleic acid amplification tests include RT- PCR [...] #### C CHRIS PT, JAUN #### [facility] [address] [place] [address] 96746 BASIC METABOLIC PANELon 03-0 Calcium [Mass/Vol] 8.6 mg/dL Normal 8.5-10.5 [facility] Comment on above: Performed By: #### C CHRIS PT, BMP #### [facility] [address] [place] [address] Chloride [Moles/Vol] 102 mmol/L Normal 98-107 [facility] Comment on above: Performed By: #### C CHRIS PT, BMP #### [facility] [address] [place] [address] CO2 [Moles/Vol] 27 mmol/L Normal 21-32 [facility] Comment on above: Performed By: #### C CHRIS PT, BMP #### [facility] [address] [place] [address] Creatinine [Mass/Vol] 1.14 mg/dL Normal 0.70-1.30 [facility] Comment on above: Performed By: #### C CHRIS, PT, BMP #### [facility] [address] [place] [address] EST GLOM FILT > [address] [facility] Comment on above: Result Comment: Result [...] #### C CHRIS, PT, BMP #### [facility] [address] [place] [address] ESTIMATED GLOM FILT RATE > [address] [facility] Comment on above: Performed By: #### C CHRIS, PT, BMP #### [facility] [address] [place] [address] Glucose [Mass/Vol] 184 mg/dL High 65-99 [facility] Comment on above: Performed By: #### C BCNhan, PT, BMP #### [facility] [address] [place] [address] Potassium [Moles/Vol] 3.4 mmol/L Low 3.5-5.1 [facility] Comment on above: Performed By: #### C BCNhan, PT, BMP #### [facility] [address] [place] [address] Sodium [Moles/Vol] 135 mmol/L Low 136-145 [facility] Comment on above: Performed By: #### C BCNhan, PT, BMP #### [facility] [address] [place] [address] Urea nitrogen [Mass/Vol] 16 mg/dL Normal 7-24 [facility] Comment on above: Performed By: #### C BCD, PT, BMP #### [facility] [address] [place] [address] CBC with DIFFERENTIALon 03-0 -2021 Basophils (Bld) [#/Vol] 0.1 10*3/uL Normal 0.0-0.1 [facility] Comment on above: Performed By: #### C BCNhan, PT, BMP #### [facility] [address] [place] [address] 51837 Basophils/100 WBC (Bld) 1.0 % Normal 0.0-1.0 [facility] Comment on above: Performed By: #### C BCNhan, PT, BMP #### [facility] [address] [place] [address] 15950 Eosinophils (Bld) [#/Vol] 0.4 10*3/uL Normal 0.0-0.4 [facility] Comment on above: Performed By: #### C BCNhan, PT, BMP #### [facility] [address] [place] [address] 96900 Eosinophils/100 WBC (Bld) 5.3 % High 1.0-4.0 [facility] Comment on above: Performed By: #### C BCD, PT, BMP #### [facility] [address] [place] [address] 40897 Hematocrit (Bld) [Volume fraction] 41.1 % Low 42.0-52.0 [facility] Comment on above: Performed By: #### C BCD, PT, BMP #### [facility] [address] [place] [address] 73696 Hemoglobin (Bld) [Mass/Vol] 13.5 g/dL Low 14.0-18.0 [facility] Comment on above: Performed By: #### C BCD, PT, BMP #### [facility] [address] [place] [address] IG # 0.1 10*3/uL Normal 0.0-0.1 [facility] Comment on above: Performed By: #### C BCD, PT, BMP #### [facility] [address] [place] [address] 01662 IG % 1.3 % High 0.0-1.0 [facility] Comment on above: Performed By: #### C BCD, PT, BMP #### [facility] [address] [place] [address] 22808 Lymphocytes (Bld) [#/Vol] 1.7 10*3/uL Normal 1.3-4.4 [facility] Comment on above: Performed By: #### C BCD, PT, BMP #### [facility] [address] [place] [address] 80722 Lymphocytes/100 WBC (Bld) 23.5 % Low 27.0-41.0 [facility] Comment on above: Performed By: #### C BCD, PT, BMP #### [facility] [address] [place] [address] 09390 MCV (RBC) [Entitic vol] 91.3 fL Normal 80.0-94.0 [facility] Comment on above: Performed By: #### C BCD, PT, BMP #### [facility] [address] [place] [address] 55825 MEAN CORPUSCULAR HGB 30.0 pg Normal 27.0-31.0 [facility] Comment on above: Performed By: #### C BCD, PT, BMP #### [facility] [address] [place] [address] 92489 MEAN CORPUSCULAR HGB CONC 32.8 g/dl Low 33.0-37.0 [facility] Comment on above: Performed By: #### C BCD, PT, BMP #### [facility] [address] [place] [address] 60875 Monocytes (Bld) [#/Vol] 0.6 10*3/uL Normal 0.1-1.0 [facility] Comment on above: Performed By: #### C BCD, PT, BMP #### [facility] [address] [place] [address] Monocytes/100 WBC (Bld) 8.4 % Normal 3.0-9.0 [facility] Comment on above: Performed By: #### C BCD, PT, BMP #### [facility] [address] [place] [address] Neutrophils (Bld) [#/Vol] 4.3 10*3/uL Normal 2.3-7.9 [facility] Comment on above: Performed By: #### C BCD, PT, BMP #### [facility] [address] [place] [address] 42012 Neutrophils/100 WBC (Bld) 60.5 % Normal 47.0-73.0 [facility] Comment on above: Performed By: #### C BCD, PT, BMP #### [facility] [address] [place] [address] NUCLEATED RED BLOOD CELL 0.0 10*3/uL Normal 0.0-0.0 [facility] Comment on above: Performed By: #### C BCD, PT, BMP #### [facility] [address] [place] [address] 92318 NUCLEATED RED BLOOD CELL 0.0 % Normal 0.0-0.0 [facility] Comment on above: Performed By: #### C BCD, PT, BMP #### [facility] [address] [place] [address] 12881 PLATELET COUNT AUTOMATED 138 10*3/uL Normal 130-400 [facility] Comment on above: Performed By: #### C BCD, PT, BMP #### [facility] [address] [place] [address] Platelet mean volume (Bld) [Entitic vol] 9.1 fL Low 9.6-12.3 [facility] Comment on above: Performed By: #### C BCD, PT, BMP #### [facility] [address] [place] [address] 47993 RBC (Bld) [#/Vol] 4.50 10*6/uL Normal 4.50-5.90 [facility] Comment on above: Performed By: #### C BCD, PT, BMP #### [facility] [address] [place] [address] 37879 RED CELL DISTRI WIDTH 15.0 % High 0-14.5 [facility] Comment on above: Performed By: #### C BCD, PT, BMP #### [facility] [address] [place] [address] 93811 WBC (Bld) [#/Vol] 7.1 10*3/uL Normal 4.8-10.8 [facility] Comment on above: Performed By: #### C BCD, PT, BMP #### [facility] [address] [place] [address] 94938 MAGNESIUMon 07-05-2021 Magnesium [Mass/Vol] 1.9 mg/dL Normal 1.5-2.1 [facility] Comment on above: Performed By: #### C BCD, PT, BMP #### [facility] [address] [place] [address] 63487 PROTHROMBIN TIMEon INTERNATIONAL NORM RATIO 1.3 Low 2.0-3.5 [facility] Comment on above: Result Comment: INR THERAPEUTIC RANGE: GROUP A 2.0-3.0 INR GROUP B 2.5-3.5 INR GROUP A SUGGESTED INDICATIONS: PROPHYLAXIS AND TREATMENT OF VENOUS THROMBOSIS TREATMENT OF PULMONARY EMBOLISM ATRIAL FIBRILLATION GROUP B SUGGESTED INDICATIONS: MECHANICAL PROSTHETIC VALVES Performed By: #### C BCD, PT, BMP #### [facility] [address] [place] [address] 09633 PT Coag (PPP) [Time] 12.6 s High 8.9-12.2 [facility] Comment on above: Performed By: #### C BCD, PT, BMP #### [facility] [address] [place] [address] ALBUMIN ([facility])on 07-05-19 Albumin [Mass/Vol] 3.5 g/dL Abnormal 3.7-4.7 [facility] Comment on above: Result Comment: Perf ormed at: CB - [facility] [address] [id number] Installation Service Representative: Luis Alfredo Gutierres PhD, Phone: [phone] Performed By: #### C OVID19 [id number] #### [facility] [address] [place] [address] BASIC METABOLIC PANELon Calcium [Mass/Vol] 8.6 mg/dL Normal 8.5-10.5 [facility] Comment on above: Performed By: #### C BCD, PT, BMP #### [facility] [address] [place] [address] Chloride [Moles/Vol] 104 mmol/L Normal 98-107 [facility] Comment on above: Performed By: #### C BCD, PT, BMP #### [facility] [address] [place] [address] CO2 [Moles/Vol] 28 mmol/L Normal 21-32 [facility] Comment on above: Performed By: #### C BCD, PT, BMP #### [facility] [address] [place] [address] Creatinine [Mass/Vol] 1.22 mg/dL Normal 0.70-1.30 [facility] Comment on above: Performed By: #### C BCD, PT, BMP #### [facility] [address] [place] [address] EST GLOM FILT > [address] [facility] Comment on above: Result Comment: Result [...] #### C CHRIS, PT, BMP #### [facility] [address] [place] [address] ESTIMATED GLOM FILT RATE 58 mL/min/ Low [facility] Comment on above: Performed By: #### Jagjit PEREZ PT, BMP #### [facility] [address] [place] [address] Glucose [Mass/Vol] 169 mg/dL High 65-99 [facility] Comment on above: Performed By: #### Jagjit PEREZ, PT, BMP #### [facility] [address] [place] [address] Potassium [Moles/Vol] 3.4 mmol/L Low 3.5-5.1 [facility] Comment on above: Performed By: #### Jagjit PEREZ, PT, BMP #### [facility] [address] [place] [address] 53534 Sodium [Moles/Vol] 138 mmol/L Normal 136-145 [facility] Comment on above: Performed By: #### Jagjit PEREZ, PT, BMP #### [facility] [address] [place] [address] Urea nitrogen [Mass/Vol] 17 mg/dL Normal 7-24 [facility] Comment on above: Performed By: #### Jagjit PEREZ, PT, BMP #### [facility] [address] [place] [address] CBC with DIFFERENTIALon 03-0 3-2021 Basophils (Bld) [#/Vol] 0.1 10*3/uL Normal 0.0-0.1 [facility] Comment on above: Performed By: #### C BCD, PT, BMP #### [facility] [address] [place] [address] Basophils/100 WBC (Bld) 0.8 % Normal 0.0-1.0 [facility] [facility] Comment on above: Performed By: #### C BCD, PT, BMP #### [facility] [address] [place] [address] 15296 Eosinophils (Bld) [#/Vol] 0.3 10*3/uL Normal 0.0-0.4 [facility] Comment on above: Performed By: #### C BCD, PT, BMP #### [facility] [address] [place] [address] 20712 Eosinophils/100 WBC (Bld) 3.8 % Normal 1.0-4.0 [facility] Comment on above: Performed By: #### C BCD, PT, BMP #### [facility] [address] [place] [address] 93604 Hematocrit (Bld) [Volume fraction] 41.4 % Low 42.0-52.0 [facility] Comment on above: Performed By: #### C BCD, PT, BMP #### [facility] [address] [place] [address] 22747 Hemoglobin (Bld) [Mass/Vol] 13.6 g/dL Low 14.0-18.0 [facility] Comment on above: Performed By: #### C BCD, PT, BMP #### [facility] [address] [place] [address] 17249 IG # 0.1 10*3/uL Normal 0.0-0.1 [facility] Comment on above: Performed By: #### C BCD, PT, BMP #### [facility] [address] [place] [address] 23620 IG % 1.2 % High 0.0-1.0 [facility] Comment on above: Performed By: #### C BCD, PT, BMP #### [facility] [address] [place] [address] Lymphocytes (Bld) [#/Vol] 1.7 10*3/uL Normal 1.3-4.4 [facility] Comment on above: Performed By: #### C BCD, PT, BMP #### [facility] [address] [place] [address] 69612 Lymphocytes/100 WBC (Bld) 25.2 % Low 27.0-41.0 [facility] Comment on above: Performed By: #### C BCD, PT, BMP #### [facility] [address] [place] [address] 96020 MCV (RBC) [Entitic vol] 89.4 fL Normal 80.0-94.0 [facility] Comment on above: Performed By: #### C BCD, PT, BMP #### [facility] [address] [place] [address] 44174 MEAN CORPUSCULAR HGB 29.4 pg Normal 27.0-31.0 [facility] Comment on above: Performed By: #### C BCD, PT, BMP #### [facility] [address] [place] [address] 85441 MEAN CORPUSCULAR HGB CONC 32.9 g/dl Low 33.0-37.0 [facility] Comment on above: Performed By: #### C BCD, PT, BMP #### [facility] [address] [place] [address] 34585 Monocytes (Bld) [#/Vol] 0.6 10*3/uL Normal 0.1-1.0 [facility] Comment on above: Performed By: #### C BCD, PT, BMP #### [facility] [address] [place] [address] 07155 Monocytes/100 WBC (Bld) 9.2 % High 3.0-9.0 [facility] Comment on above: Performed By: #### C BCD, PT, BMP #### [facility] [address] [place] [address] Neutrophils (Bld) [#/Vol] 3.9 10*3/uL Normal 2.3-7.9 [facility] Comment on above: Performed By: #### C BCD, PT, BMP #### [facility] [address] [place] [address] Neutrophils/100 WBC (Bld) 59.8 % Normal 47.0-73.0 [facility] Comment on above: Performed By: #### C BCD, PT, BMP #### [facility] [address] [place] [address] 53543 NUCLEATED RED BLOOD CELL 0.0 10*3/uL Normal 0.0-0.0 [facility] Comment on above: Performed By: #### C BCD, PT, BMP #### [facility] [address] [place] [address] 08453 NUCLEATED RED BLOOD CELL 0.0 % Normal 0.0-0.0 [facility] Comment on above: Performed By: #### C BCD, PT, BMP #### [facility] [address] [place] [address] 57784 PLATELET COUNT AUTOMATED 142 10*3/uL Normal 130-400 [facility] Comment on above: Performed By: #### C BCD, PT, BMP #### [facility] [address] [place] [address] 33761 Platelet mean volume (Bld) [Entitic vol] 9.2 fL Low 9.6-12.3 [facility] Comment on above: Performed By: #### C BCD, PT, BMP #### [facility] [address] [place] [address] 28207 RBC (Bld) [#/Vol] 4.63 10*6/uL Normal 4.50-5.90 [facility] Comment on above: Performed By: #### C BCD, PT, BMP #### [facility] [address] [place] [address] 84338 RED CELL DISTRI WIDTH 14.9 % High 0-14.5 Eas t [facility] Comment on above: Performed By: #### C CHRIS, PT, BMP #### [facility] [address] [place] [address] 93295 WBC (Bld) [#/Vol] 6.6 10*3/uL Normal 4.8-10.8 [facility] Comment on above: Performed By: #### C CHRIS, PT, BMP #### [facility] [address] [place] [address] GRAM STAINon 07-04-2021 Microscopic observation Gram stain Nom (Unsp spec) GRAM STAIN FEW WHITE BLOOD CELLS FEW GRAM POSITIVE COCCI IN PAIRS WOUND CULTURE SKIN DARYN:PROBABLE CONTAMINATE Normal [facility] Comment on above: Performed By: #### C CHRIS, PT, BMP #### [facility] [address] [place] [address] OPERATIVE NOTEon 07-04-2021 Inventory Specialist Manager Report [place], [place] OPERATIVE NOTE NAME: CHARLI PORRAS UNIT #: [id number] ROOM: [facility] DOCTOR: BLAINE GUZMÁN DPM BIRTHDATE: [birth year] DOS: 07/04/2021 IN-HOUSE SURGICAL OPERATIVE REPORT PREOPERATIVE DIAGNOSIS: Osteomyelitis, fourth right toe. POSTOPERATIVE DIAGNOSIS: Osteomyelitis, fourth right toe. 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 ANESTHESIA: LMAC. ESTIMATED BLOOD LOSS: 5 mL TOURNIQUET: None. SURGEON: Blaine Guzmán DPM. CUSTOMER SUCCESS ASSOCIATE: Luis Mckeon DPM. DRAINS: None. PACKING: None. [...] later today and tomorrow by the resident industrial relations manager. BLAINE GUZMÁN DPM [place], [place] OPERATIVE NOTE NAME: CHARLI PORRAS UNIT #: [id number] ROOM: [facility] DOCTOR: BLAINE GUZMÁN DPM BIRTHDATE: [birth year] KE/YESENIA TID: [id number] CM:OPRECORD:OPERATIVE NOTE [phone] BLAINE GUZMÁN DPM 07/04/[address] [facility] POST OPERATIVE PROGRESS NOTE on 07-04-2021 Inventory Specialist Manager Report [place], [place] POST OPERATIVE PROGRESS NOTE NAME: CHARLI PORRAS UNIT #: [id number] STATUS: ADM IN SURGEON: RADU ANAND DPM [...] Anesthesia: MAC CM:POSTOP DICT: RADU ANAND DPM [id number] [facility] Inventory Specialist Manager Report [place], [place] POST OPERATIVE PROGRESS NOTE NAME: CHARLI PORRAS UNIT #: [id number] STATUS: ADM IN SURGEON: BLAINE GUZMÁN DPM ROOM: [facility] DATE: 07/04/21 ATTENDING: HERIBERTO CHRISTIANSEN DO DATE [...] BLAINE GUZMÁN DPM Electronically Signed 07/04/21 1224 [id number] [facility] PROTHROMBIN TIMEon 2 INTERNATIONAL NORM RATIO 1.6 Low 2.0-3.5 [facility] Comment on above: Result Comment: INR THERAPEUTIC RANGE: GROUP A 2.0-3.0 INR GROUP B 2.5-3.5 INR GROUP A SUGGESTED INDICATIONS: PROPHYLAXIS AND TREATMENT OF VENOUS THROMBOSIS TREATMENT OF PULMONARY EMBOLISM ATRIAL FIBRILLATION GROUP B SUGGESTED INDICATIONS: MECHANICAL PROSTHETIC VALVES Performed By: #### C BCD, PT, BMP #### [facility] [address] [place] [address] PT Coag (PPP) [Time] 15.9 s High 8.9-12.2 [facility] Comment on above: Performed By: #### C BCD, PT, BMP #### [facility] [address] [place] [address] TOEon 07-04-2021 TOE -- ---- RUN DATE: 07/15/21 [facility] LIVE PAGE 1 RUN TIME: 1509 Specimen Inquiry RUN USER: INTERFACE ---- PATIENT: CHARLI PORRAS LOC: 4E U #: [id number] AGE/SX: 71/M ROOM: [facility] RE07/02/[address]: HERIBERTO CHRISTIANSEN DO, DOB: [birth year] BED: 1 DIS: 07/12/21 STATUS: DIS IN TLOC: ---- SPEC #: [id number] RECD: 07/05/21 STATUS: OPAL CURRY #: [id number] ERIC: 07/04/21- SUBM DR: BLAINE GUZMÁN DPM ENTERED: 07/05/21 SP TYPE: TOE OTHR DR: HERIBERTO CHRISTIANSEN DO, KIMBERLY LYNN ORDERED: MARCEL, LEVEL 3 ([id number]), SURGICAL SPEC COMMENTS: REFERRING MEDICAL DOCTOR: MARCO [...] is deformed. The skin is peeling off. [facility] sections submitted in two cassettes. SURGICAL PROCEDURE: AMPUTATION RIGHT FOURTH TOE CONTINUED ON NEXT PAGE ---- RUN DATE: 07/15/21 [facility] LIVE PAGE 2 RUN TIME: 1509 Specimen Inquiry RUN USER: INTERFACE ---- SPEC #: [id number] PATIENT: CHARLI PORRAS #[id number] (Continued) ---- TISSUE SUBMITTED RIGHT FOURTH TOE ---- Signed TESS ADRIAN 07/10/21 1449 ---- END OF REPORT Normal [facility] Comment on above: Order Comment: REFER RING MEDICAL DOCTOR: KINDRA: MARCO# OF CONTAINERS 1TISSUE SUBMITTED: RIGHT FOURTH TOEPROCEDURE: AMPUTATION RIGHT FOURTH TOEPRELIMINARY DIAGNOSIS: OSTEOMYLITIS RIGHT FOOT Performed By: #### C BCD, PT, BMP #### [facility] [address] ARTERIAL LOWER EXT BILATo n 07-04-2021 USARTLEB Name: CHARLI PORRAS Phys: RADU ANAND DPM : 1950 Age: 71 Sex: M Acct: [id number] Loc: 425 1 Exam Date: 07/03/2021 Status: ADM IN Radiology No: [id number] Unit No: [id number] EXAM# TYPE/EXAM RESULT [id number] US/US ARTERIAL LOWER EXT BILAT SEE REPORT [...] follows: Right EIA: 163 cm/s, triphasic Right LEGAL TECHNICIAN: 145 cm/s, triphasic Right Proximal SFA: 127 cm/s, triphasic Right Mid SFA: 129 cm/s, triphasic Right Distal SFA: 79 cm/s, triphasic Right Popliteal: 134 cm/s, triphasic Right OUTPATIENT CODER: 182 cm/s, biphasic Right KENN: 162 cm/s, biphasic Right Peroneal: no images obtained The peak velocities and waveforms in the left lower extremity are as follows: Left EIA: 167 cm/s, triphasic Left LEGAL TECHNICIAN: 168/ cm/s, triphasic Left Proximal SFA: 157 cm/s, triphasic Left Mid SFA: 93 cm/s, triphasic Left Distal SFA: 99 cm/s, triphasic Left Popliteal: 102 cm/s, triphasic Left OUTPATIENT CODER: 191 cm/s, triphasic Left KENN: 113 cm/s, biphasic Left dorsalis pedis: 71 cm/s, monophasic PAGE 1 Signed Report (CONTINUED) Name: CHARLI PORRAS Phys: RADU ANAND DPM : 1950 Age: 71 Sex: M Acct: [id number] Loc: 425 1 Exam Date: 07/03/2021 Status: ADM IN Radiology No: [id number] Unit No: [id number] EXAM# TYPE/EXAM RESULT [id number] US/US ARTERIAL LOWER EXT BILAT SEE REPORT IMPRESSION: Limited evaluation. No evidence of significant arterial disease suggested. Signed by Lizz Maliro, MD REPORT SIGNED IN OTHER VENDOR SYSTEM 07/04/2021 Reported By: LIZZ STILL MD CC: ERICKA CASSIDY Technologist: ZULEMA WORTHY Transcribed Date/Time: 07/04/2021 (916) Caustic Room Operator: LEEANNE Printed Date/Time: 07/04/2021 (916) PAGE [address] [facility] ACT PARTIAL THROMBO TIMEon 0 07-03-2021 ACT PARTIAL THROMBO TIME 46.1 SECONDS High 20.0-32.1 [facility] Comment on above: Result Comment: APTT THERAPEUTIC RANGE = 51.3 TO 62.7 SECONDS Performed By: #### C BCD, PT, BMP #### [facility] [address] [place] [address] 81516 ALBUMIN ([facility])on 07-04-19 Albumin [Mass/Vol] 3.8 g/dL Normal 3.7-4.7 [facility] Comment on above: Result Comment: Perf ormed at: CB - [facility] [place] [address] Installation Service Representative: Luis Alfredo Gutierres PhD, Phone: [phone] Performed By: #### B MP, CBCD #### [facility] [address] [place] [address] 81671 CBC with DIFFERENTIALon Basophils (Bld) [#/Vol] 0.0 10*3/uL Normal 0.0-0.1 [facility] Comment on above: Performed By: #### C BCD, PT, BMP #### [facility] [address] [place] [address] 38991 Basophils/100 WBC (Bld) 0.6 % Normal 0.0-1.0 [facility] Comment on above: Performed By: #### C BCD, PT, BMP #### [facility] [address] [place] [address] 03061 Eosinophils (Bld) [#/Vol] 0.2 10*3/uL Normal 0.0-0.4 [facility] Comment on above: Performed By: #### C BCD, PT, BMP #### [facility] [address] [place] [address] Eosinophils/100 WBC (Bld) 2.8 % Normal 1.0-4.0 [facility] Comment on above: Performed By: #### C BCNhan, PT, BMP #### [facility] [address] [place] [address] 87366 Hematocrit (Bld) [Volume fraction] 42.6 % Normal 42.0-52.0 [facility] Comment on above: Performed By: #### C BCNhan, PT, BMP #### [facility] [address] [place] [address] 19604 Hemoglobin (Bld) [Mass/Vol] 14.1 g/dL Normal 14.0-18.0 [facility] Comment on above: Performed By: #### C BCNhan, PT, BMP #### [facility] [address] [place] [address] 35176 IG # 0.1 10*3/uL Normal 0.0-0.1 [facility] Comment on above: Performed By: #### C BCNhan, PT, BMP #### [facility] [address] [place] [address] 40349 IG % 1.3 % High 0.0-1.0 [facility] Comment on above: Performed By: #### C BCNhan, PT, BMP #### [facility] [address] [place] [address] 91785 Lymphocytes (Bld) [#/Vol] 1.4 10*3/uL Normal 1.3-4.4 [facility] Comment on above: Performed By: #### C BCNhan, PT, BMP #### [facility] [address] [place] [address] 32319 Lymphocytes/100 WBC (Bld) 22.2 % Low 27.0-41.0 [facility] Comment on above: Performed By: #### C BCD, PT, BMP #### [facility] [address] [place] [address] MCV (RBC) [Entitic vol] 89.7 fL Normal 80.0-94.0 [facility] Comment on above: Performed By: #### C BCD, PT, BMP #### [facility] [address] [place] [address] 15106 MEAN CORPUSCULAR HGB 29.7 pg Normal 27.0-31.0 [facility] Comment on above: Performed By: #### C BCD, PT, BMP #### [facility] [address] [place] [address] 17017 MEAN CORPUSCULAR HGB CONC 33.1 g/dl Normal 33.0-37.0 [facility] Comment on above: Performed By: #### C BCD, PT, BMP #### [facility] [address] [place] [address] 62352 Monocytes (Bld) [#/Vol] 0.6 10*3/uL Normal 0.1-1.0 [facility] Comment on above: Performed By: #### C BCD, PT, BMP #### [facility] [address] [place] [address] 25112 Monocytes/100 WBC (Bld) 9.9 % High 3.0-9.0 [facility] Comment on above: Performed By: #### C BCD, PT, BMP #### [facility] [address] [place] [address] 53587 Neutrophils (Bld) [#/Vol] 4.0 10*3/uL Normal 2.3-7.9 [facility] Comment on above: Performed By: #### C BCD, PT, BMP #### [facility] [address] [place] [address] 88513 Neutrophils/100 WBC (Bld) 63.2 % Normal 47.0-73.0 [facility] Comment on above: Performed By: #### C BCD, PT, BMP #### [facility] [address] [place] [address] 23599 NUCLEATED RED BLOOD CELL 0.0 10*3/uL Normal 0.0-0.0 [facility] Comment on above: Performed By: #### C BCD, PT, BMP #### [facility] [address] [place] [address] 61707 NUCLEATED RED BLOOD CELL 0.0 % Normal 0.0-0.0 [facility] Comment on above: Performed By: #### C BCD, PT, BMP #### [facility] [address] [place] [address] 63988 PLATELET COUNT AUTOMATED 146 10*3/uL Normal 130-400 [facility] Comment on above: Performed By: #### C BCD, PT, BMP #### [facility] [address] [place] [address] 91793 Platelet mean volume (Bld) [Entitic vol] 9.5 fL Low 9.6-12.3 [facility] Comment on above: Performed By: #### C BCD, PT, BMP #### [facility] [address] [place] [address] 35441 RBC (Bld) [#/Vol] 4.75 10*6/uL Normal 4.50-5.90 [facility] Comment on above: Performed By: #### C BCD, PT, BMP #### [facility] [address] [place] [address] 70460 RED CELL DISTRI WIDTH 14.7 % High 0-14.5 [facility] Comment on above: Performed By: #### C BCD, PT, BMP #### [facility] [address] [place] [address] 41482 WBC (Bld) [#/Vol] 6.4 10*3/uL Normal 4.8-10.8 [facility] Comment on above: Performed By: #### C BCD, PT, BMP #### [facility] [address] [place] [address] 00490 CHEST AP ONLY (1V)on 022 [id number] Name: CHARLI PORRAS Phys: ANMOL MASCORRO DO : 1950 Age: 71 Sex: M Acct: [id number] Loc: 425 1 Exam Date: 07/03/2021 Status: ADM IN Radiology No: [id number] Unit No: [id number] EXAM# TYPE/EXAM RESULT [id number] RAD/CHEST AP ONLY (1V) SEE REPORT INDICATION: [...] OTHER VENDOR SYSTEM 07/03/2021 Reported By: TIFFANI GUERNI M.D. CC: ERICKA CASSIDY Technologist: CRISTINA NICOLE Transcribed Date/Time: 07/03/2021 (1613) Caustic Room Operator: LEEANNE Printed Date/Time: 07/03/2021 (1613) [address] [facility] COMPREHENSIVE METABOLIC PANE Nolan 07-03-[address] [facility] Comment on above: Result Comment: See send out ALBUMIN from [facility]. Performed By: #### C BCNhan, PT, BMP #### [facility] [address] [place] [address] ALP [Catalytic activity/Vol] 85 U/L Normal 45-117 [facility] Comment on above: Performed By: #### C CHRIS, PT, BMP #### [facility] [address] [place] [address] ALT [Catalytic activity/Vol] 31 U/L Normal 12-78 [facility] Comment on above: Performed By: #### C BCNhan, PT, BMP #### [facility] [address] [place] [address] AST [Catalytic activity/Vol] 23 U/L Normal 3-35 [facility] Comment on above: Performed By: #### C BCD, PT, BMP #### [facility] [address] [place] [address] Bilirubin [Mass/Vol] 0.7 mg/dL Normal 0.2-1.0 [facility] Comment on above: Performed By: #### C BCD, PT, BMP #### [facility] [address] [place] [address] Calcium [Mass/Vol] 8.7 mg/dL Normal 8.5-10.5 [facility] Comment on above: Performed By: #### C BCD, PT, BMP #### [facility] [address] [place] [address] Chloride [Moles/Vol] 103 mmol/L Normal 98-107 [facility] Comment on above: Performed By: #### C BCD, PT, BMP #### [facility] [address] [place] [address] CO2 [Moles/Vol] 27 mmol/L Normal 21-32 [facility] Comment on above: Performed By: #### C BCD, PT, BMP #### [facility] [address] [place] [address] Creatinine [Mass/Vol] 1.16 mg/dL Normal 0.70-1.30 [facility] Comment on above: Performed By: #### C BCD, PT, BMP #### [facility] [address] [place] [address] EST GLOM FILT > [address] [facility] Comment on above: Result Comment: Result [...] #### C BCD, PT, BMP #### [facility] [address] [place] [address] ESTIMATED GLOM FILT RATE > [address] [facility] Comment on above: Performed By: #### C BCD, PT, BMP #### [facility] [address] [place] [address] Glucose [Mass/Vol] 171 mg/dL High 65-99 [facility] Comment on above: Performed By: #### C BCD, PT, BMP #### [facility] [address] [place] [address] 20815 Potassium [Moles/Vol] 3.4 mmol/L Low 3.5-5.1 [facility] Comment on above: Performed By: #### C BCD, PT, BMP #### [facility] [address] [place] [address] Protein [Mass/Vol] 7.0 g/dL Normal 6.4-8.2 [facility] Comment on above: Performed By: #### C BCD, PT, BMP #### [facility] [address] [place] [address] Sodium [Moles/Vol] 136 mmol/L Normal 136-145 [facility] Comment on above: Performed By: #### C BCD, PT, BMP #### [facility] [address] [place] [address] 07352 Urea nitrogen [Mass/Vol] 14 mg/dL Normal 7-24 [facility] Comment on above: Performed By: #### C BCD, PT, BMP #### [facility] [address] [place] [address] CONTRAST/ECHO COMPLETEon CRDECCON Name: CHARLI PORRAS Phys: GREGG BONNER DO : 1950 Age: 71 Sex: M Acct: [id number] Loc: 425 1 Exam Date: 07/03/2021 Status: ADM IN Radiology No: [id number] Unit No: [id number] EXAM# TYPE/EXAM RESULT [id number] ECHO/CONTRAST/ECHO COMPLETE SEE REPORT AN ADDENDUM IS [...] : 1950 Age: 71 Sex: M Acct: [id number] Loc: 425 1 Exam Date: 07/03/2021 Status: ADM IN Radiology No: [id number] Unit No: [id number] EXAM# TYPE/EXAM RESULT [id number] ECHO/CONTRAST/ECHO COMPLETE SEE REPORT AN ADDENDUM IS [...] : 1950 Age: 71 Sex: M Acct: [id number] Loc: 425 1 Exam Date: 07/03/2021 Status: ADM IN Radiology No: [id number] Unit No: [id number] EXAM# TYPE/EXAM RESULT [id number] ECHO/CONTRAST/ECHO COMPLETE SEE REPORT AN ADDENDUM IS [...] : 1950 Age: 71 Sex: M Acct: [id number] Loc: 425 1 Exam Date: 07/03/2021 Status: ADM IN Radiology No: [id number] Unit No: [id number] EXAM# TYPE/EXAM RESULT [id number] ECHO/CONTRAST/ECHO COMPLETE SEE REPORT AN ADDENDUM IS [...] : 1950 Age: 71 Sex: M Acct: [id number] Loc: 425 1 Exam Date: 07/03/2021 Status: ADM IN Radiology No: [id number] Unit No: [id number] (more content not included)... Normal [facility] FOLIC ACIDon 07-03-2021 FOLIC ACID 23.06 ng/mL Normal >5.38 [facility] Comment on above: Result Comment: 0.35 - 3.7 ng/mL - Folate Deficiency 3.38 - 5.38 ng/mL - Indeterminate > 5.38 ng/mL - Normal Performed By: #### C BCD, PT, BMP #### [facility] [address] [place] [address] FREE T4on 07-03-2021 Free T4 [Mass/Vol] 0.85 ng/dL Normal 0.76-1.46 [facility] Comment on above: Performed By: #### C BCD, PT, BMP #### [facility] [address] [place] [address] [id number] 07-03-2021 ESTIMATED AVERAGE GLUCOSE [address] [facility] Comment on above: Performed By: #### C CHRIS PT, BMP #### [facility] [address] [place] [address] HbA1c (Bld) [Mass fraction] 9.5 % High 4.8-5.6 [facility] Comment on above: Result Comment: Standarization of method based on National Glycohemoglobin Standardization Program (NGSP). HEMOGLOBIN A1c(%) DEGREE of GLUCOSE CONTROL 5.7-6.4% Prediabetes range >6.4% Diagnosis of Diabetes <7% Glycemic control for adults with Diabetes Performed By: #### C CHRIS PT, BMP #### [facility] [address] [place] [address] 45229 LIPID PANELon 07-03-2021 Cholesterol [Mass/Vol] 102 mg/dL Normal <200 [facility] Comment on above: Performed By: #### C CHRIS PT, BMP #### [facility] [address] [place] [address] Cholesterol in HDL [Mass/Vol] 34 mg/dL Low 40-60 [facility] Comment on above: Performed By: #### C CHRIS PT, BMP #### [facility] [address] [place] [address] Cholesterol in LDL [Mass/Vol] 20 mg/dL Normal 9-159 [facility] Comment on above: Performed By: #### C CHRIS PT, BMP #### [facility] [address] [place] [address] 05164 Triglyceride [Mass/Vol] 241 mg/dL High <150 [facility] Comment on above: Result Comment: TRIGLYCERIDE RISK ASSESSMENT: 150-199 mg/dl BORDERLINE HIGH >200 mg//dl HIGH . Performed By: #### C BCD, PT, BMP #### [facility] [address] [place] [address] 13519 VLDL CHOLESTEROL 48 mg/dL High 6-40 [facility] Comment on above: Performed By: #### C BCD, PT, BMP #### [facility] [address] [place] [address] 17547 MAGNESIUMon 07-03-2021 Magnesium [Mass/Vol] 1.8 mg/dL Normal 1.5-2.1 [facility] Comment on above: Performed By: #### C BCD, PT, BMP #### [facility] [address] [place] [address] 95889 PHOSPHOROUSon 07-03-2021 PHOSPHOROUS 3.7 mg/dL Normal 2.5-4.9 [facility] Comment on above: Performed By: #### C BCD, PT, BMP #### [facility] [address] [place] [address] 29447 PROTHROMBIN TIMEon INTERNATIONAL NORM RATIO 2.5 Normal 2.0-3.5 [facility] Comment on above: Result Comment: INR THERAPEUTIC RANGE: GROUP A 2.0-3.0 INR GROUP B 2.5-3.5 INR GROUP A SUGGESTED INDICATIONS: PROPHYLAXIS AND TREATMENT OF VENOUS THROMBOSIS TREATMENT OF PULMONARY EMBOLISM ATRIAL FIBRILLATION GROUP B SUGGESTED INDICATIONS: MECHANICAL PROSTHETIC VALVES Performed By: #### C BCD, PT, BMP #### [facility] [address] [place] [address] 06709 PT Coag (PPP) [Time] 24.2 s High 8.9-12.2 [facility] Comment on above: Performed By: #### C BCD, PT, BMP #### [facility] [facility] [address] [place] [address] THYROID STIM HORMONE (HS)on 07-03-2021 THYROID STIM HORMONE (HS) 2.660 uIU/ml Normal 0.358-4.75 [facility] Comment on above: Performed By: #### C BCD, PT, BMP #### [facility] [address] [place] [address] 51372 VITAMIN B12on 07-03-2021 Cobalamin (Vitamin B12) [Mass/Vol] 528 pg/mL Normal 247-911 [facility] Comment on above: Result Comment: 247 - 911 pg/mL - Normal, Vitamin B12 Sufficiency Performed By: #### C BCD, PT, BMP #### [facility] [address] [place] [address] 93828 VITAMIN D, 25-HYDROXYon VITAMIN D, 25-HYDROXY 25.6 ng/mL Low 30-100 [facility] Comment on above: Result Comment: < 20 ng/mL - Vitamin D Deficiency 20 - 30 ng/mL - Vitamin D Insufficiency 30 - 100 ng/mL - Vitamin D sufficiency > 100 ng/mL - Vitamin D Toxicity Performed By: #### C OVID19 [id number] #### [facility] [address] [place] [address] ACT PARTIAL THROMBO TIMEon 0 07-02-2021 ACT PARTIAL THROMBO TIME 46.4 SECONDS High 20.0-32.1 [facility] Comment on above: Result Comment: APTT THERAPEUTIC RANGE = 51.3 TO 62.7 SECONDS Performed By: #### L ABASE, CMP, PT, CBCD, APTT #### [facility] [address] [place] [address] #### ALB SO #### [facility] [address] [place] [address] C-REACTIVE PROTEINon 022 C-REACTIVE PROTEIN 5.30 MG/DL High 0-0.3 [facility] Comment on above: Result Comment: This method is intended for the detection and evaluation of infection, tissue injury and inflammatory disease. This method is not intended for cardiovascular risk assessment. * Performed By: #### B MP, CBCD #### [facility] [address] [place] [address] CBC with DIFFERENTIALon Basophils (Bld) [#/Vol] 0.0 10*3/uL Normal 0.0-0.1 [facility] Comment on above: Performed By: #### L ABASE, CMP, PT, CBCD, APTT #### [facility] [address] [place] [address] #### ALB SO #### [facility] [address] [place] [address] Basophils/100 WBC (Bld) 0.6 % Normal 0.0-1.0 [facility] Comment on above: Performed By: #### L ABASE, CMP, PT, CBCD, APTT #### [facility] [address] [place] [address] #### ALB SO #### [facility] [address] [place] [address] Eosinophils (Bld) [#/Vol] 0.2 10*3/uL Normal 0.0-0.4 [facility] Comment on above: Performed By: #### L ABASE, CMP, PT, CBCD, APTT #### [facility] [address] [place] [address] #### ALB SO #### [facility] [address] [place] [address] Eosinophils/100 WBC (Bld) 2.3 % Normal 1.0-4.0 [facility] Comment on above: Performed By: #### L ABASE, CMP, PT, CBCD, APTT #### [facility] [address] [place] [address] #### ALB SO #### [facility] [address] [place] [address] Hematocrit (Bld) [Volume fraction] 44.1 % Normal 42.0-52.0 [facility] Comment on above: Performed By: #### L ABASE, CMP, PT, CBCD, APTT #### [facility] [address] [place] [address] #### ALB SO #### [facility] [address] [place] [address] Hemoglobin (Bld) [Mass/Vol] 14.6 g/dL Normal 14.0-18.0 [facility] Comment on above: Performed By: #### L ABASE, CMP, PT, CBCD, APTT #### [facility] [address] [place] [address] #### ALB SO #### [facility] [address] [place] [address] IG # 0.1 10*3/uL Normal 0.0-0.1 [facility] Comment on above: Performed By: #### L ABASE, CMP, PT, CBCD, APTT #### [facility] [address] [place] [address] #### ALB SO #### [facility] [address] [place] [address] IG % 1.6 % High 0.0-1.0 [facility] Comment on above: Performed By: #### L ABASE, CMP, PT, CBCD, APTT #### [facility] [address] [place] [address] #### ALB SO #### [facility] [address] [place] [address] Lymphocytes (Bld) [#/Vol] 1.2 10*3/uL Low 1.3-4.4 [facility] Comment on above: Performed By: #### L ABASE, CMP, PT, CBCD, APTT #### [facility] [address] [place] [address] #### ALB SO #### [facility] [address] [place] [address] Lymphocytes/100 WBC (Bld) 17.0 % Low 27.0-41.0 [facility] Comment on above: Performed By: #### L ABASE, CMP, PT, CBCD, APTT #### [facility] [address] [place] [address] #### ALB SO #### [facility] [address] [place] [address] MCV (RBC) [Entitic vol] 90.9 fL Normal 80.0-94.0 [facility] Comment on above: Performed By: #### L ABASE, CMP, PT, CBCD, APTT #### [facility] [address] [place] [address] #### ALB SO #### [facility] [address] [place] [address] MEAN CORPUSCULAR HGB 30.1 pg Normal 27.0-31.0 [facility] Comment on above: Performed By: #### L ABASE, CMP, PT, CBCD, APTT #### [facility] [address] [place] [address] #### ALB SO #### [facility] [address] MEAN CORPUSCULAR HGB CONC 33.1 g/dl Normal 33.0-37.0 [facility] Comment on above: Performed By: #### L ABASE, CMP, PT, CBCD, APTT #### [facility] [address] [place] [address] #### ALB SO #### [facility] [address] [place] [address] Monocytes (Bld) [#/Vol] 0.5 10*3/uL Normal 0.1-1.0 [facility] Comment on above: Performed By: #### L ABASE, CMP, PT, CBCD, APTT #### [facility] [address] [place] [address] #### ALB SO #### [facility] [address] [place] [address] Monocytes/100 WBC (Bld) 7.5 % Normal 3.0-9.0 [facility] Comment on above: Performed By: #### L ABASE, CMP, PT, CBCD, APTT #### [facility] [address] [place] [address] #### ALB SO #### [facility] [address] [place] [address] Neutrophils (Bld) [#/Vol] 4.8 10*3/uL Normal 2.3-7.9 [facility] Comment on above: Performed By: #### L ABASE, CMP, PT, CBCD, APTT #### [facility] [address] [place] [address] #### ALB SO #### [facility] [address] [place] [address] Neutrophils/100 WBC (Bld) 71.0 % Normal 47.0-73.0 [facility] Comment on above: Performed By: #### L ABASE, CMP, PT, CBCD, APTT #### [facility] [address] [place] [address] #### ALB SO #### [facility] [address] [place] [address] NUCLEATED RED BLOOD CELL 0.0 10*3/uL Normal 0.0-0.0 [facility] Comment on above: Performed By: #### L ABASE, CMP, PT, CBCD, APTT #### [facility] [address] [place] [address] #### ALB SO #### [facility] [address] [place] [address] NUCLEATED RED BLOOD CELL 0.0 % Normal 0.0-0.0 [facility] Comment on above: Performed By: #### L ABASE, CMP, PT, CBCD, APTT #### [facility] [address] [place] [address] #### ALB SO #### [facility] [address] [place] [address] PLATELET COUNT AUTOMATED 120 10*3/uL Low 130-400 [facility] Comment on above: Performed By: #### L ABASE, CMP, PT, CBCD, APTT #### [facility] [address] [place] [address] #### ALB SO #### [facility] [address] [place] [address] Platelet mean volume (Bld) [Entitic vol] 8.9 fL Low 9.6-12.3 [facility] Comment on above: Performed By: #### L ABASE, CMP, PT, CBCD, APTT #### [facility] [address] [place] [address] #### ALB SO #### [facility] [address] [place] [address] RBC (Bld) [#/Vol] 4.85 10*6/uL Normal 4.50-5.90 [facility] Comment on above: Performed By: #### L ABASE, CMP, PT, CBCD, APTT #### [facility] [address] [place] [address] #### ALB SO #### [facility] [address] [place] [address] RED CELL DISTRI WIDTH 15.2 % High 0-14.5 [facility] Comment on above: Performed By: #### L ABASE, CMP, PT, CBCD, APTT #### [facility] [address] [place] [address] #### ALB SO #### [facility] [address] [place] [address] WBC (Bld) [#/Vol] 6.8 10*3/uL Normal 4.8-10.8 [facility] Comment on above: Performed By: #### L ABASE, CMP, PT, CBCD, APTT #### [facility] [address] [place] [address] #### ALB SO #### [facility] [address] [place] [address] COMPREHENSIVE METABOLIC PANE Nolan 07-02-[address] [facility] Comment on above: Result Comment: See send out ALBUMIN from [facility]. Performed By: #### L ABASE, CMP, PT, CBCD, APTT #### [facility] [address] [place] [address] #### ALB SO #### [facility] [address] [place] [address] ALP [Catalytic activity/Vol] 92 U/L Normal 45-117 [facility] Comment on above: Performed By: #### L ABASE, CMP, PT, CBCD, APTT #### [facility] [address] [place] [address] #### ALB SO #### [facility] [address] [place] [address] ALT [Catalytic activity/Vol] 34 U/L Normal 12-78 [facility] Comment on above: Performed By: #### L ABASE, CMP, PT, CBCD, APTT #### [facility] [address] [place] [address] #### ALB SO #### [facility] [address] [place] [address] AST [Catalytic activity/Vol] 21 U/L Normal 3-35 [facility] Comment on above: Performed By: #### L ABASE, CMP, PT, CBCD, APTT #### [facility] [address] [place] [address] #### ALB SO #### [facility] [address] [place] [address] Bilirubin [Mass/Vol] 0.8 mg/dL Normal 0.2-1.0 [facility] Comment on above: Performed By: #### L ABASE, CMP, PT, CBCD, APTT #### [facility] [address] [place] [address] #### ALB SO #### [facility] [address] [place] [address] Calcium [Mass/Vol] 9.0 mg/dL Normal 8.5-10.5 [facility] Comment on above: Performed By: #### L ABASE, CMP, PT, CBCD, APTT #### [facility] [address] [place] [address] #### ALB SO #### [facility] [address] [place] [address] Chloride [Moles/Vol] 103 mmol/L Normal 98-107 [facility] Comment on above: Performed By: #### L ABASE, CMP, PT, CBCD, APTT #### [facility] [address] [place] [address] #### ALB SO #### [facility] [address] [place] [address] CO2 [Moles/Vol] 27 mmol/L Normal 21-32 [facility] Comment on above: Performed By: #### L ABASE, CMP, PT, CBCD, APTT #### [facility] [address] [place] [address] #### ALB SO #### [facility] [address] [place] [address] Creatinine [Mass/Vol] 1.20 mg/dL Normal 0.70-1.30 [facility] Comment on above: Performed By: #### L ABASE, CMP, PT, CBCD, APTT #### [facility] [address] [place] [address] #### ALB SO #### [facility] [address] [place] [address] EST GLOM FILT > [address] [facility] Comment on above: Result Comment: Result [...] ABASE, CMP, PT, CBCD, APTT #### [facility] [address] [place] [address] #### ALB SO #### [facility] [address] [place] [address] ESTIMATED GLOM FILT RATE 60 mL/min/ Normal [facility] Comment on above: Performed By: #### L ABASE, CMP, PT, CBCD, APTT #### [facility] [address] [place] [address] #### ALB SO #### [facility] [address] [place] [address] Glucose [Mass/Vol] 198 mg/dL High 65-99 [facility] Comment on above: Performed By: #### L ABASE, CMP, PT, CBCD, APTT #### [facility] [address] [place] [address] #### ALB SO #### [facility] [address] [place] [address] Potassium [Moles/Vol] 3.9 mmol/L Normal 3.5-5.1 [facility] Comment on above: Performed By: #### L ABASE, CMP, PT, CBCD, APTT #### [facility] [address] [place] [address] #### ALB SO #### [facility] [address] [place] [address] Protein [Mass/Vol] 7.4 g/dL Normal 6.4-8.2 [facility] Comment on above: Performed By: #### L ABASE, CMP, PT, CBCD, APTT #### [facility] [address] [place] [address] #### ALB SO #### [facility] [address] [place] [address] Sodium [Moles/Vol] 135 mmol/L Low 136-145 [facility] Comment on above: Performed By: #### L ABASE, CMP, PT, CBCD, APTT #### [facility] [address] [place] [address] #### ALB SO #### [facility] [address] [place] [address] Urea nitrogen [Mass/Vol] 14 mg/dL Normal 7-24 [facility] Comment on above: Performed By: #### L ABASE, CMP, PT, CBCD, APTT #### [facility] [address] [place] [address] #### ALB SO #### [facility] [address] [place] [address] ELECTROCARDIOGRAM REPORTon 0 07-02-2021 Inventory Specialist Manager Report [place], [place] ELECTROCARDIOGRAM REPORT NAME: CHARLI PORRAS UNIT #: [id number] ROOM: [facility] DOCTOR: NEENA KRUSE,TEGAN BIRTHDATE: [birth year] [facility] Test Date: 2021-07-02 Test Time: 15:36:52 Pat Name: CHARLI PORRSA Department: Room: [facility] Gender: M Yard Attendant: : 1950 Requested By: CRISS TORRES Order Number: [id number] Reading MD: Tegan Horton MD Measurements Intervals [place] Rate: 74 P: 43 WA: 169 QRS: -14 QRSD: 161 T: 98 QT: 463 QTc: 514 Interpretive Statements Sinus rhythm Left bundle branch block Electronically Signed On 07-02-2021 15:54:22 PST by Tegan Horton MD CM:EKGRPT:ELECTROCARDI OGRAM REPORT 1536 1554 CRISS TORRES MD Normal [facility] ESR (Sed Rate)on 07-02-2021 ESR (Bld) [Velocity] 31 mm/h High 0-20 [facility] Comment on above: Performed By: #### B MP, CBCD #### [facility] [address] [place] [address] FOOT RIGHT (MIN 3 V)on 07-02 CRFOOTR Name: CHARLI PORRAS Phys: CRISS ESPINO MD : 1950 Age: 71 Sex: M Acct: [id number] Loc: 425 1 Exam Date: 07/02/2021 Status: ADM IN Radiology No: [id number] Unit No: [id number] EXAM# TYPE/EXAM RESULT [id number] EDRAD/FOOT RIGHT (MIN 3 V) SEE REPORT [...] : 1950 Age: 71 Sex: M Acct: [id number] Loc: 425 1 Exam Date: 07/02/2021 Status: ADM IN Radiology No: [id number] Unit No: [id number] EXAM# TYPE/EXAM RESULT [id number] EDRAD/FOOT RIGHT (MIN 3 V) SEE REPORT Signed by Yahaira Christianson MD REPORT SIGNED IN OTHER VENDOR SYSTEM 07/02/2021 Reported By: YAHAIRA CHRISTIANSON CC: ERICKA CASSIDY Technologist: MURIEL GAUTAM Transcribed Date/Time: 07/02/2021 (1743) Caustic Room Operator: LEEANNE Printed Date/Time: 07/02/2021 (383) PAGE [address] [facility] LA>2 RFLX FOLLOW UP AT 2 HRS on 07-02-2021 LA>2 RFLX FOLLOW UP AT 2 HRS 1.8 mmol/L Normal 0.4-2.0 [facility] Comment on above: Performed By: #### C OVID19 017927 #### [facility] [address] [place] [address] LACTIC ACID BASELINEon 07-02 LACTIC ACID BASELINE 3.1 mmol/L Abnormal 0.4-2.0 [facility] Comment on above: Result Comment: VALUE IS A CRITICAL RESULT VERIFIED BY REPEAT ANALYSIS ON SAME SPECIMEN RESULT CALLED TO: TANISHA ANDERSON READ BACK RESULTS AND DATE OF OF [birth year] VERIFIED 07/02/21 1554 RENA CAMARILLO Performed By: #### B MP, CBCD #### [facility] [address] [place] [address] NT-proBNPon 07-02-2021 Natriuretic peptide B (Bld) [Mass/Vol] 209.00 pg/mL High 0-125 [facility] Comment on above: Result Comment: Using [...] consideration. . Performed By: #### C OVID19 005924 #### [facility] [address] [place] [address] PROTHROMBIN TIMEon INTERNATIONAL NORM RATIO 2.6 Normal 2.0-3.5 [facility] Comment on above: Result Comment: INR THERAPEUTIC RANGE: GROUP A 2.0-3.0 INR GROUP B 2.5-3.5 INR GROUP A SUGGESTED INDICATIONS: PROPHYLAXIS AND TREATMENT OF VENOUS THROMBOSIS TREATMENT OF PULMONARY EMBOLISM ATRIAL FIBRILLATION GROUP B SUGGESTED INDICATIONS: MECHANICAL PROSTHETIC VALVES Performed By: #### L ABASE, CMP, PT, CBCD, APTT #### [facility] [address] [place] [address] #### ALB SO #### [facility] [address] [place] [address] PT Coag (PPP) [Time] 24.3 s High 8.9-12.2 [facility] Comment on above: Performed By: #### L ABASE, CMP, PT, CBCD, APTT #### [facility] [address] [place] [address] #### ALB SO #### [facility] [address] [place] [address] TIBIA AND FIBULA RIGHT (2 V) on 07-02-2021 CRTIBFIR Name: CHARLI PORRAS Phys: CRISS ESPINO MD : 1950 Age: 71 Sex: M Acct: [id number] Loc: 425 1 Exam Date: 07/02/2021 Status: ADM IN Radiology No: [id number] Unit No: [id number] EXAM# TYPE/EXAM RESULT [id number] EDRAD/TIBIA AND FIBULA RIGHT (2 SEE REPORT [...] Technologist: MURIEL GAUTAM Transcribed Date/Time: 07/02/2021 (1733) Caustic Room Operator: LEEANNE Printed Date/Time: 07/02/2021 (3563) PAGE 1 Signed Report Normal [facility] VENOUS LOWER EXTREMITY RT on 07-02-2021 USVENLER Name: CHARLI PORRAS Phys: CRISS ESPINO MD : 1950 Age: 71 Sex: M Acct: [id number] Loc: H2016 1 Exam Date: 07/02/2021 Status: ADM IN Radiology No: [id number] Unit No: [id number] EXAM# TYPE/EXAM RESULT [id number] US/US VENOUS LOWER EXTREMITY RT SEE REPORT [...] CASSIDY Technologist: ZULEMA WORTHY Transcribed Date/Time: 07/02/2021 (6214) Caustic Room Operator: LEEANNE Printed Date/Time: 07/02/2021 (6674) PAGE [address] [facility] ATHENAon 06-26-2021 JEANNETTE Patient name: CHARLI PORRAS MR#: [id number] Date of Service: 06/26/21 Acc#: [id number] : 1950 Age: 71 Sex: M Dictated by: Maryan Tony MD Patient Name : CHARLI PORRAS (71yo, M) ID# [id number] Appt. Date/Time : 06/26/2021 07:45AM : 1950 Service Dept. : [facility] Provider : MARYAN TONY M.D. Insurance Med Primary: [facility] - MED[facility] (MEDICARE REPLACEMENT/ADVANTAGE - HMO) Insurance # : [id number] Policy/Group # : [id number] Med Secondary: [facility] ([place] - [place]) Insurance # : [id number] Policy/Group # : [id number] Prescription: [facility] - Member is eligible. details Prescription: [facility] - Member is eligible. details Chief Complaint medication refill refill- tramadol and gabapentin; feet, legs and back pain Patient's Care Team Primary Care Provider: ERICKA CASSIDY MD: [address] [place] [address], , Referring Provider: SARAH FELIPE: [address] [place] [address], Ph [phone], Other: CHARISSE VALENCIA MD: [address] [place] [address], , ax Patient's Pharmacies [email or web address] ([facility]): [address] [address], Ph [phone], Vitals BP: 156/79 sitting L arm 06/26/2021 [...] TO SKIN ON (more content not included)... [facility] [place] [facility] 05-22-2021 [place] Patient name: CHARLI PORRAS MR#: [id number] Date of Service: 05/22/21 Acc#: [id number] : 1950 Age: 71 Sex: M Dictated by: Maryan Tony MD Patient Name : CHARLI PORRAS (71yo, M) ID# [id number] Appt. Date/Time : 05/22/2021 01:15PM : 1950 Service Dept. : [facility]IN [facility]NAG[facility] Provider : MARYAN TONY M.D. Insurance Med Primary[place] [employer] (MEDICARE REPLACEMENT/ADVANTAGE - HMO) Insurance # : [id number] Policy/Group # : [id number] Med Secondary: [facility] ([place] - HMO) Insurance # : [id number] Policy/Group # : [id number] Prescription: [facility] - Member is eligible. details Prescription: [facility] - Member is eligible. details Chief Complaint *pain management refills; c/o pain shoulders, back legs - present states these last two weks pt has been in excruciating pain Patient's Care Team Primary Care Provider: ERICKA CASSIDY MD: [address] [place] [address], , Referring Provider: SARAH FELIPEI: [address] [place] [address], Ph [phone], Other: CHARISSE VALENCIA MD: [address] [place] [address], , ax [email or web address] ([facility]): [address] [address], Ph [phone], [facility] 05/22/2021 01:14 pm BP: Ht: 5 [...] for 30 days. Date: 03/19/20 filled Source: ursula Name: traMADoL 50 mg tablet TAKE 1 [...] mellitus - Onse (more content not included)... [facility] [place] [facility] 03-20-2021 [place] Patient name: CHARLI PORRAS MR#: [id number] Date of Service: 03/20/21 Acc#: [id number] : 1950 Age: 70 Sex: M Dictated by: Maryan Tony MD Patient Name : CHARLI PORRAS (70yo, M) ID# [id number] Appt. Date/Time : 03/20/2021 01:15PM : 1950 [facility] Provider : MARYAN TONY M.D. Insurance Med Primary: [facility] [facility] [place] (MEDICARE REPLACEMENT/ADVANTAGE - HMO) Insurance # : [id number] Policy/Group # : [id number] Med Secondary: [facility] ([place] - HMO) Insurance # : [id number] Policy/Group # : [id number] Prescription: [facility] - Member is eligible. details Prescription: [facility] - Member is eligible. details Chief Complaint *pain management REFILL Patient's Care Team Primary Care Provider: ERICKA CASSIDY MD: [address] [place] [address], , Referring Provider: SARAH FELIPEI: [address] [place] [address], Ph [phone], Other: CHARISSE VALENCIA MD: [address] [place] [address], , ax Patient's Pharmacies [facility] (ER[facility]): [address] [address], Ph [phone], Vitals BP: 160/79 03/20/2021 01:25 pm Ht: [...] - Cer (more content not included)... Normal [facility] .Auto Diffon 07-16-2020 Ammonia (P) [Mass/Vol] 0.60 10 3/mcL Normal 0.09-1.40 [facility] ([place]) Comment on above: Performed By: #### C BC, ADIFF, ANEU, BMP, GFR, TROPHS #### [address] [address] Basophils (Bld) [#/Vol] 0.10 10 3/mcL Normal 0.00-0.27 [facility] ([place]) Comment on above: Performed By: #### C BC, ADIFF, ANEU, BMP, GFR, TROPHS #### [address] [address] Basophils/100 WBC (Bld) 1.0 % Normal 0.0-2.5 [facility] ([place]) Comment on above: Performed By: #### C BC, ADIFF, ANEU, BMP, GFR, TROPHS #### [address] [address] Eosinophils (Bld) [#/Vol] 0.20 10 3/mcL Normal 0.00-0.65 [facility] ([place]) Comment on above: Performed By: #### C BC, ADIFF, ANEU, BMP, GFR, TROPHS #### [address] [address] Eosinophils/100 WBC (Bld) 2.5 % Normal 0.0-6.0 [facility] ([place]) Comment on above: Performed By: #### C BC, ADIFF, ANEU, BMP, GFR, TROPHS #### [address] [address] Lymphocytes (Bld) [#/Vol] 1.60 10 3/mcL Normal 0.90-4.32 [facility] ([place]) Comment on above: Performed By: #### C BC, ADIFF, ANEU, BMP, GFR, TROPHS #### [address] [address] Lymphocytes/100 WBC (Bld) 21.0 % Normal 20.0-40.0 [facility] ([place]) Comment on above: Performed By: #### C BC, ADIFF, ANEU, BMP, GFR, TROPHS #### [address] [address] Monocytes/100 WBC (Bld) 7.6 % Normal 2.0-13.0 [facility] ([place]) Comment on above: Performed By: #### C BC, ADIFF, ANEU, BMP, GFR, TROPHS #### [address] [address] Neutrophils/100 WBC (Bld) 67.9 % Normal 50.0-75.0 [facility] ([place]) Comment on above: Performed By: #### C BC, ADIFF, ANEU, BMP, GFR, TROPHS #### [address] [address] .GFRon 07-16-2020 GFR >60 Normal [facility] ([place]) Comment on above: Result Comment: GFR Population [...] BC, ADIFF, ANEU, BMP, GFR, TROPHS #### [address] [address] GFR Non- 57 ml/min/1.73sqm Normal [facility] ([place]) Comment on above: Result Comment: GFR Population [...] BC, ADIFF, ANEU, BMP, GFR, TROPHS #### [place] [id number] .NEUABSon 07-16-2020 Neutrophils (Bld) [#/Vol] 5.20 10 3/mcL Normal 2.25-8.10 [facility] ([place]) Comment on above: Performed By: #### C BC, ADIFF, ANEU, BMP, GFR, TROPHS #### [place] [id number] BMPon 07-16-2020 Calcium [Mass/Vol] 9.0 mg/dL Normal 8.4-10.1 [facility] ([place]) Comment on above: Result Comment: No te - New Reference Range in effect 19 Performed By: #### C BC, ADIFF, ANEU, BMP, GFR, TROPHS #### [address] [id number] Chloride [Moles/Vol] 101 mmol/L Normal 98-110 [facility] ([place]) Comment on above: Performed By: #### C BC, ADIFF, ANEU, BMP, GFR, TROPHS #### [address] [id number] CO2 [Moles/Vol] 24 mmol/L Normal 22-32 [facility] ([place]) Comment on above: Performed By: #### C BC, ADIFF, ANEU, BMP, GFR, TROPHS #### [address] [address] Creatinine [Mass/Vol] 1.24 mg/dL Normal 0.60-1.40 [facility] ([place]) Comment on above: Performed By: #### C BC, ADIFF, ANEU, BMP, GFR, TROPHS #### [address] [address] Electrolyte Balance 9.0 mEq/L Normal 4.0-15.0 [facility] ([place]) Comment on above: Performed By: #### C BC, ADIFF, ANEU, BMP, GFR, TROPHS #### [address] [address] Glucose [Mass/Vol] 253 mg/dL High 82-115 [facility] ([place]) Comment on above: Performed By: #### C BC, ADIFF, ANEU, BMP, GFR, TROPHS #### [address] [address] Potassium [Moles/Vol] 4.1 mmol/L Normal 3.5-5.0 [facility] ([place]) Comment on above: Performed By: #### C BC, ADIFF, ANEU, BMP, GFR, TROPHS #### [address] [address] Sodium [Moles/Vol] 134 mmol/L Low 136-145 [facility] ([place] Comment on above: Performed By: #### C BC, ADIFF, ANEU, BMP, GFR, TROPHS #### [address] [address] Urea nitrogen [Mass/Vol] 26.0 mg/dL High 8.0-22.0 [facility] ([place] Comment on above: Performed By: #### C BC, ADIFF, ANEU, BMP, GFR, TROPHS #### [address] [address] Urea nitrogen/Creatinine [Mass ratio] 21.0 ratio Normal 10.0-22.0 [facility] ([place] Comment on above: Performed By: #### C BC, ADIFF, ANEU, BMP, GFR, TROPHS #### [place] [id number] CBCon 07-16-2020 Erythrocyte distribution width (RBC) [Ratio] 14.7 % Normal 11.5-15.5 [facility] ([place] Comment on above: Performed By: #### C BC, ADIFF, ANEU, BMP, GFR, TROPHS #### [place] [address] Hematocrit (Bld) [Volume fraction] 44.5 % Normal 40.0-52.0 [facility] ([place] Comment on above: Performed By: #### C BC, ADIFF, ANEU, BMP, GFR, TROPHS #### [place] [address] Hemoglobin (Bld) [Mass/Vol] 15.2 G/dL Normal 13.0-17.5 [facility] ([place] Comment on above: Performed By: #### C BC, ADIFF, ANEU, BMP, GFR, TROPHS #### [place] [address] MCH (RBC) [Entitic mass] 30.4 pg Normal 27.0-33.0 [facility] ([place] Comment on above: Performed By: #### C BC, ADIFF, ANEU, BMP, GFR, TROPHS #### [place] [id number] MCHC (RBC) [Mass/Vol] 34.1 G/dL Normal 32.0-36.0 [facility] ([place] Comment on above: Performed By: #### C BC, ADIFF, ANEU, BMP, GFR, TROPHS #### [place] [address] MCV (RBC) [Entitic vol] 89.3 fL Normal 81.0-100.0 [facility] ([place]) Comment on above: Performed By: #### C BC, ADIFF, ANEU, BMP, GFR, TROPHS #### [facility] [address] [place], [place] [address] Platelet mean volume (Bld) [Entitic vol] 7.6 fL Normal 6.4-10.5 [facility] ([place]) Comment on above: Performed By: #### C BC, ADIFF, ANEU, BMP, GFR, TROPHS #### [facility] [address] [place] [address] Platelets (Bld) [#/Vol] 132 10 3/mcL Low 150-450 [facility] ([place]) Comment on above: Performed By: #### C BC, ADIFF, ANEU, BMP, GFR, TROPHS #### [place] [id number] [place] [address] RBC (Bld) [#/Vol] 4.99 10 6/mcL Normal 4.50-6.00 [facility] ([place]) Comment on above: Performed By: #### C BC, ADIFF, ANEU, BMP, GFR, TROPHS #### [place] [address] [place] [address] WBC (Bld) [#/Vol] 7.70 10 3/mcL Normal 4.50-10.80 [facility] ([place] Comment on above: Performed By: #### C BC, ADIFF, ANEU, BMP, GFR, TROPHS #### [address] [address] [address] HEAD OR BRAIN W/O CONTRAS Ton [...] Date: 07/16/2020 9:32:33 PM Ordering Provider:Gayla Greenberg [facility] ([place]) PROon 07-16-2020 INR Coag (PPP) [Relative time] 1.6 {INR} Normal [facility] ([place] Comment on above: Result Comment: [employer] (CHEST, 1992, 102:312S-25S) recommended therapeutic range for oral anticoagulant therapy is: LOW RISK: Prophylaxis of venous thrombosis INR: 2.0-3.0 Treatment of pulmonary embolism 2.0-3.0 Prevention of systemic embolism 2.0-3.0 HIGH RISK: Mechanical prosthetic valves 2.5-3.5 Performed By: #### P RO #### [place] [address] PT Coag (PPP) [Time] 19.0 s High 9.0-14.8 [facility] ([place]) Comment on above: Result Comment: Effe ctive 11/16/07, Protime results may be affected by some antibiotics (i.e. Ciprofloxacin, Azithromycin, Bactrim) which may potentiate the action of oral anticoagulants, with further increases in Protime/INR. Performed By: #### P RO #### [place] [id number] TROPHSon 07-16-2020 Troponin I High Sensitivity 7.91 ng/L Normal 0.00-54.00 [facility] ([place] Comment on above: Performed By: #### C BC, ADIFF, ANEU, BMP, GFR, TROPHS #### [address] [address] UAon 07-16-2020 Color (U) Yellow Normal [facility] ([place] Comment on above: Performed By: #### U A #### [place] [id number] Glucose (U) [Mass/Vol] mg/dL Abnormal Negative [facility] ([place]) Comment on above: Performed By: #### U A #### [place] [address] Ketones Ql (U) Negative Normal Neg-Trace [facility] ([place] Comment on above: Performed By: #### U A #### [place] [address] UA Appear Clear Normal [facility] ([place] Comment on above: Performed By: #### U A #### [address] [address] UA Blood Negative Normal Neg-Trace [facility] ([place] Comment on above: Performed By: #### U A #### [place] [address] UA Leuk Est Negative Normal Negative [facility] ([place] Comment on above: Performed By: #### U A #### [place] [address] UA Nitrite Negative Normal Negative [facility] ([place] Comment on above: Performed By: #### U A #### [place] [address] UA pH 5.5 Normal 5.0 - 8.0 [facility] ([place] Comment on above: Performed By: #### U A #### [place] [address] UA Protein Negative Normal Negative [facility] ([place] Comment on above: Performed By: #### U A #### [place] [address] UA Spec Grav 1.010 Abnormal [facility] ([place] Comment on above: Performed By: #### U A #### [place] [address] UA Specimen Type Clean Catch Normal [facility] ([place] Comment on above: Performed By: #### U A #### [place] [address] UA Urobilinogen 1.0 E.U./dL Normal [facility] ([place] Comment on above: Performed By: #### U A #### [facility] [address] [place] [address] Urobilinogen Qn (U) Negative Normal Neg-Trace [facility] ([place]) Comment on above: Performed By: #### U A #### [facility] [address] [place] [address] XR CHEST 1 VIEWon 07-16-2020 XR CHEST [...] Date: 07/16/2020 8:13:33 PM Ordering Provider:Gayla Greenberg [facility] ([place]) CR Knee 1 or 2 Views Lefton 10-07-2018 CR Knee 1 or 2 Views Left Patient Name: CHARLI PORRAS Diagnostic Radiology Exam Date/Time 10/07/2018 10:08:00 EDT Exam CR Knee 1 or 2 Views Left Ordering Physician FERNY GARCIA NICHOLAS A Accession Number [id number] CPT4 Codes 09731 () Reason For Exam PAIN Report BILATERAL KNEES LEFT KNEE SERIES CLINICAL INDICATION: Left knee arthroplasty follow-up, pain A standing AP view of the bilateral knees was performed. Kellogg and lateral plain film views of the [...] Transcribed Date and Time: 10/07/2018 4:28 Normal [facility] CR Knee Standing Bilateralon 10-07-2018 CR Knee Standing Bilateral Patient Name: CHARLI PORRAS Diagnostic Radiology Exam Date/Time 10/07/2018 10:08:00 EDT Exam CR Knee Standing AP Bilateral Ordering Physician FERNY GARCIA NICHOLAS A Accession Number [id number] CPT4 Codes 59365 () Reason For Exam PAIN Report BILATERAL KNEES LEFT KNEE SERIES CLINICAL INDICATION: Left knee arthroplasty follow-up, pain A standing AP view of the bilateral knees was performed. Kellogg and lateral plain film views of the [...] Transcribed Date and Time: 10/07/2018 4:28 Normal [facility] CR Knee 1 or 2 Views Lefton 09-02-2018 CR Knee 1 or 2 Views Left Patient Name: CHARLI PORRAS Diagnostic Radiology Exam Date/Time 09/02/2018 09:44:56 EDT Exam CR Knee 1 or 2 Views Left Ordering Physician MD LESLIE, SOHAN MEDINA Accession Number [id number] CPT4 Codes 22641 () Reason For Exam pain Report CLINICAL [...] knee arthroplasty revision. Report Dictated on Workstation: [id number] Final Dictating Physician: MD ALFREDO JEFFREY Signed Date and Time: 09/02/2018 1:21 pm Signed by: MD ALFREDO JEFFREY Transcribed Date and Time: 09/02/2018 1:22 Normal [facility] CR Knee Standing Bilateralon 09-02-2018 CR Knee Standing Bilateral Patient Name: CHARLI PORRAS Diagnostic Radiology Exam Date/Time 09/02/2018 09:44:56 EDT Exam CR Knee Standing AP Bilateral Ordering Physician MD LESLIE, SOHAN MEDINA Accession Number [id number] CPT4 Codes 33407 () Reason For Exam pain Report CLINICAL [...] knee arthroplasty revision. Report Dictated on Workstation: [id number] Final Dictating Physician: MD ALFREDO JEFFREY Signed Date and Time: 09/02/2018 1:21 pm Signed by: MD ALFREDO JEFFREY Transcribed Date and Time: 09/02/2018 1:22 Normal [facility] CULTURE ANAEROBEon 9 CULTURE ANAEROBE CULTURE ANAEROBE --> Status: F No growth of anaerobes at 5 days. [facility] Comment on above: Performed By: #### T SGL #### [facility] [address] [place] [address] Order Comment: Speci men collected in O.R. CULTURE ANAEROBE CULTURE ANAEROBE --> Status: F No growth of anaerobes at 5 days. [facility] Comment on above: Performed By: #### T SGL #### [facility] [address] [place] [address] Basic Metabolic Panelon 08-02 Calcium [Mass/Vol] 8.8 mg/dL Normal 8.4-10.4 [facility] Comment on above: Performed By: #### H EMOG, BMP3 ####[facility] [address] [place] [address] Glucose [Mass/Vol] 211 mg/dL High 70-100 [facility] Comment on above: Performed By: #### H EMOG, BMP3 ####[facility] [address] [place] [address] Urea nitrogen [Mass/Vol] 32 mg/dL High 7-20 [facility] Comment on above: Performed By: #### H EMOG, BMP3 ####[facility] [address] [place] [address] Anion gap [Moles/Vol] 5 Normal [facility] Comment on above: Performed By: #### H EMOG, BMP3 ####[facility] [address] [place] [address] CO2 [Moles/Vol] 33 mmol/L High 22-30 [facility] Comment on above: Performed By: #### H EMOG, BMP3 ####[facility] [address] [place] [address] Creatinine [Mass/Vol] 1.40 mg/dL High 0.52-1.25 [facility] Comment on above: Performed By: #### H EMOG, BMP3 ####[facility] [address] [place] [address] GFR/1.73 sq M predicted among blacks MDRD (S/P/Bld) [Vol rate/Area] mL/min/{1.73_m2} Normal >60 [facility] Comment on above: Performed By: #### H SULMA BMP3 ####[facility] [place] [address] GFR/1.73 sq M predicted among non-blacks MDRD (S/P/Bld) [Vol rate/Area] 50.2 mL/min/{1.73_m2} Normal >60 [facility] Comment on above: Result Comment: Sour ce- MDRD equation with creatinine calibration to IDMS(NKDEP) eGFR not recommended for drug dose adjustment Performed By: #### H SULMA BMP3 ####[place] [address] [place] [address] Potassium [Moles/Vol] 3.9 mmol/L Normal 3.5-5.1 [facility] Comment on above: Performed By: #### Joceline OZUNA BMP3 ####[facility] [place] [address] [place] [address] Chloride [Moles/Vol] 96 mmol/L Low 98-107 [facility] Comment on above: Performed By: #### Joceline OZUNA BMP3 ####[facility] [place] [address] [place] [address] Sodium [Moles/Vol] 134 mmol/L Low 135-145 [facility] Comment on above: Performed By: #### H SULMA BMP3 ####[facility] [place] [address] [place] [address] Glucose,Bedsideon 08-19-2018 Glucose [Mass/Vol] 331 mg/dL High 70-100 [facility] Comment on above: Result Comment: Test performed by glucose meter. Results may be 10%-15% lower than serum/plasma values. (CLIA ID [id number]) Performed By: #### B GLU ####[place] [address] [place] [address] Glucose [Mass/Vol] 255 mg/dL High 70-100 [facility] Comment on above: Result Comment: Test performed by glucose meter. Results may be 10%-15% lower than serum/plasma values. (CLIA ID [id number]) Performed By: #### B GLU ####[place] [address] [place] [address] Hemogramon 08-19-2018 Erythrocyte distribution width (RBC) [Ratio] 14.5 % Normal 11.5-14.5 [facility] Comment on above: Performed By: #### H SULMA BMP3 ####[place] [address] [place] [address] Hematocrit (Bld) [Volume fraction] 32.2 % Low 40.0-52.0 [facility] Comment on above: Performed By: #### Joceline OZUNA BMP3 ####[address] [place] [address] Hemoglobin (Bld) [Mass/Vol] 11.1 g/dL Low 13.0-18.0 [facility] Comment on above: Performed By: #### Joceline OZUNA BMP3 ####[place] [address] [place] [address] MCH (RBC) [Entitic mass] 30.7 pg Normal 26.0-34.0 [facility] Comment on above: Performed By: #### Joceline OZUNA BMP3 ####[place] [address] [place] [address] MCHC (RBC) [Mass/Vol] 34.5 % Normal 32.0-36.0 [facility] Comment on above: Performed By: #### Joceline OZUNA BMP3 ####[place] [address] [place] [address] MCV (RBC) [Entitic vol] 89.0 fL Normal 80.0-98.0 S [facility] Comment on above: Performed By: #### Joceline OZUNA BMP3 ####[place] [address] [place] [address] Platelet mean volume (Bld) [Entitic vol] 7.1 fL Low 7.4-10.4 [facility] Comment on above: Performed By: #### H SULMA BMP3 ####[facility] [place] [address] Platelets (Bld) [#/Vol] 130 10*3/uL Low 140-440 [facility] Comment on above: Performed By: #### H SULMA BMP3 ####[facility] [place] [address] RBC (Bld) [#/Vol] 3.62 10*6/uL Low 4.40-5.90 [facility] Comment on above: Performed By: #### H SULMA BMP3 ####[facility] [place] [address] WBC (Bld) [#/Vol] 6.6 10*3/uL Normal 3.6-10.7 [facility] Comment on above: Performed By: #### H JAUN OZUNA3 ####[facility] [place] [address] Basic Metabolic Panelon - Calcium [Mass/Vol] 8.8 mg/dL Normal 8.4-10.4 [facility] Comment on above: Performed By: #### T SGL #### [facility] [address] [place] [address] Glucose [Mass/Vol] 229 mg/dL High 70-100 [facility] Comment on above: Performed By: #### T SGL #### [facility] [address] [place] [address] Anion gap [Moles/Vol] 6 Normal [facility] Comment on above: Performed By: #### T SGL #### [facility] [address] [place] [address] CO2 [Moles/Vol] 32 mmol/L High 22-30 [facility] Comment on above: Performed By: #### T SGL #### [facility] [address] [place] [address] Creatinine [Mass/Vol] 1.48 mg/dL High 0.52-1.25 [facility] Comment on above: Performed By: #### T SGL #### [facility] [address] [place] [address] GFR/1.73 sq M predicted among blacks MDRD (S/P/Bld) [Vol rate/Area] 57.1 mL/min/{1.73_m2} Normal >60 [facility] Comment on above: Performed By: #### T SGL #### [facility] [address] [place] [address] GFR/1.73 sq M predicted among non-blacks MDRD (S/P/Bld) [Vol rate/Area] 47.1 mL/min/{1.73_m2} Normal >60 [facility] Comment on above: Result Comment: Sour ce- MDRD equation with creatinine calibration to IDMS(NKDEP) eGFR not recommended for drug dose adjustment Performed By: #### T SGL #### [facility] [address] [place] [address] Urea nitrogen [Mass/Vol] 39 mg/dL High 7-20 [facility] Comment on above: Performed By: #### T SGL #### [facility] [address] [place] [address] Chloride [Moles/Vol] 99 mmol/L Normal 98-107 [facility] Comment on above: Performed By: #### T SGL #### [facility] [address] [place] [address] Potassium [Moles/Vol] 4.1 mmol/L Normal 3.5-5.1 [facility] Comment on above: Performed By: #### T SGL #### [facility] [address] [place] [address] Sodium [Moles/Vol] 136 mmol/L Normal 135-145 [facility] Comment on above: Performed By: #### T SGL #### [facility] [address] [place] [address] Glucose,Bedsideon 08-18-2018 Glucose [Mass/Vol] 214 mg/dL High 70-100 [facility] Comment on above: Result Comment: Test performed by glucose meter. Results may be 10%-15% lower than serum/plasma values. (CLIA ID [id number]) Performed By: #### B GLU ####[facility] [place] [address] Glucose [Mass/Vol] 286 mg/dL High 70-100 [facility] Comment on above: Result Comment: Test performed by glucose meter. Results may be 10%-15% lower than serum/plasma values. (CLIA ID [id number]) Performed By: #### B GLU ####[facility] [place] [address] Glucose [Mass/Vol] 285 mg/dL High 70-100 [facility] Comment on above: Result Comment: Test performed by glucose meter. Results may be 10%-15% lower than serum/plasma values. (CLIA ID [id number]) Performed By: #### B GLU ####[facility] [place] [address] Glucose [Mass/Vol] 251 mg/dL High 70-100 [facility] Comment on above: Result Comment: Test performed by glucose meter. Results may be 10%-15% lower than serum/plasma values. (CLIA ID [id number]) Performed By: #### T SGL #### [facility] [address] [place] [address] Hemogramon 08-18-2018 Erythrocyte distribution width (RBC) [Ratio] 14.6 % High 11.5-14.5 [facility] Comment on above: Performed By: #### T SGL #### [facility] [address] [place] [address] Hematocrit (Bld) [Volume fraction] 33.6 % Low 40.0-52.0 [facility] Comment on above: Performed By: #### T SGL #### [facility] [address] [place] [address] Hemoglobin (Bld) [Mass/Vol] 11.4 g/dL Low 13.0-18.0 [facility] Comment on above: Performed By: #### T SGL #### [facility] [address] [place] [address] MCH (RBC) [Entitic mass] 30.6 pg Normal 26.0-34.0 [facility] Comment on above: Performed By: #### T SGL #### [facility] [address] [place] [address] MCHC (RBC) [Mass/Vol] 34.0 % Normal 32.0-36.0 [facility] Comment on above: Performed By: #### T SGL #### [facility] [address] [place] [address] MCV (RBC) [Entitic vol] 90.0 fL Normal 80.0-98.0 S [facility] Comment on above: Performed By: #### T SGL #### [facility] [address] [place] [address] Platelet mean volume (Bld) [Entitic vol] 7.5 fL Normal 7.4-10.4 [facility] Comment on above: Performed By: #### T SGL #### [facility] [address] [place] [address] Platelets (Bld) [#/Vol] 129 10*3/uL Low 140-440 [facility] Comment on above: Performed By: #### T SGL #### [facility] [address] [place] [address] RBC (Bld) [#/Vol] 3.73 10*6/uL Low 4.40-5.90 [facility] Comment on above: Performed By: #### T SGL #### [facility] [address] [place] [address] WBC (Bld) [#/Vol] 8.4 10*3/uL Normal 3.6-10.7 [facility] Comment on above: Performed By: #### T SGL #### [facility] [address] [place] [address] Basic Metabolic Panelon 08-02 Anion gap [Moles/Vol] 7 Normal [facility] Comment on above: Performed By: #### P T #### [facility] [address] [place] [address] Calcium [Mass/Vol] 9.0 mg/dL Normal 8.4-10.4 [facility] Comment on above: Performed By: #### P T #### [facility] [address] [place] [address] CO2 [Moles/Vol] 26 mmol/L Normal 22-30 [facility] Comment on above: Performed By: #### P T #### [facility] [address] [place] [address] Creatinine [Mass/Vol] 1.64 mg/dL High 0.52-1.25 [facility] Comment on above: Performed By: #### P T #### [facility] [address] [place] [address] GFR/1.73 sq M predicted among blacks MDRD (S/P/Bld) [Vol rate/Area] 50.7 mL/min/{1.73_m2} Normal >60 [facility] Comment on above: Performed By: #### P T #### [facility] [address] [place] [address] GFR/1.73 sq M predicted among non-blacks MDRD (S/P/Bld) [Vol rate/Area] 41.8 mL/min/{1.73_m2} Normal >60 [facility] Comment on above: Result Comment: Sour ce- MDRD equation with creatinine calibration to IDMS(NKDEP) eGFR not recommended for drug dose adjustment Performed By: #### P T #### [facility] [address] [place] [address] Glucose [Mass/Vol] 329 mg/dL High 70-100 [facility] Comment on above: Performed By: #### P T #### [facility] [address] [place] [address] Urea nitrogen [Mass/Vol] 32 mg/dL High 7-20 [facility] Comment on above: Performed By: #### P T #### [facility] [address] [place] [address] Chloride [Moles/Vol] 99 mmol/L Normal 98-107 [facility] Comment on above: Performed By: #### P T #### [facility] [address] [place] [address] Potassium [Moles/Vol] 5.2 mmol/L High 3.5-5.1 [facility] Comment on above: Performed By: #### P T #### [facility] [address] [place] [address] Sodium [Moles/Vol] 133 mmol/L Low 135-145 [facility] Comment on above: Performed By: #### P T #### [facility] [address] [place] [address] CULTURE AND STAIN - FLUIDon 08-17-2018 CULTURE AND STAIN - FLUID CULTURE & STAIN - FLUID --> Status: F No growth at 5 days. STAIN GRAM --> Status: F Few polymorphonuclear cells/lpf. No organisms seen. No organisms seen. Normal [facility] Comment on above: Performed By: #### T SGL #### [facility] [address] [place] [address] CULTURE AND STAIN - TISSUEon 08-17-2018 CULTURE AND STAIN - TISSUE CULTURE & STAIN - TISSUE --> Status: F No growth at 3 days. STAIN GRAM --> Status: F Rare polymorphonuclear cells/lpf. No organisms seen. No organisms seen. Normal [facility] Comment on above: Order Comment: Speci men collected in O.R. Performed By: #### T SGL #### [facility] [address] [place] [address] CULTURE AND STAIN - TISSUE CULTURE & STAIN - TISSUE --> Status: F No growth at 3 days. STAIN GRAM --> Status: F Rare polymorphonuclear cells/lpf. No organisms seen. No organisms seen. Normal [facility] Comment on above: Performed By: #### P T #### [facility] [address] [place] [address] Glucose,Bedsideon 08-17-2018 Glucose [Mass/Vol] 258 mg/dL High 70-100 [facility] Comment on above: Result Comment: Test performed by glucose meter. Results may be 10%-15% lower than serum/plasma values. (CLIA ID [id number]) Performed By: #### T SGL #### [facility] [address] [place] [address] Glucose [Mass/Vol] 257 mg/dL High 70-100 [facility] Comment on above: Result Comment: Test performed by glucose meter. Results may be 10%-15% lower than serum/plasma values. (CLIA ID [id number]) Performed By: #### T SGL #### [facility] [address] [place] [address] Glucose [Mass/Vol] 324 mg/dL High 70-100 [facility] Comment on above: Result Comment: Test performed by glucose meter. Results may be 10%-15% lower than serum/plasma values. (CLIA ID [id number]) Performed By: #### P T #### [facility] [address] [place] [address] Glucose [Mass/Vol] 319 mg/dL High 70-100 [facility] Comment on above: Result Comment: Test performed by glucose meter. Results may be 10%-15% lower than serum/plasma values. (CLIA ID [id number]) Performed By: #### P T #### [facility] [address] [place] [address] Hemoglobin A1Con 08-17-2018 HbA1c (Bld) [Mass fraction] 177 mg/dL Normal [facility] Comment on above: Performed By: #### P T #### [facility] [address] [place] [address] HbA1c (Bld) [Mass fraction] 7.8 % High 4.0-5.7 [facility] Comment on above: Result Comment: --Hg bA1C levels may not be accurate in patients who have renal disease, received recent blood transfusions, are anemic, or who have dyshemoglobinemia. Performed By: #### P T #### [facility] [address] [place] [address] Hemoglobin AND Hematocriton 08-17-2018 Hematocrit (Bld) [Volume fraction] 35.9 % Low 40.0-52.0 [facility] Comment on above: Performed By: #### P T #### [facility] [address] [place] [address] Hemoglobin (Bld) [Mass/Vol] 12.2 g/dL Low 13.0-18.0 [facility] Comment on above: Performed By: #### P T #### [facility] [address] [place] [address] Prothrombin Timeon 9 INR Coag (PPP) [Relative time] 1.1 Normal 0.9-1.1 [facility] Comment on above: Result Comment: Campos [...] Infarction Performed By: #### P T #### [facility] [address] [place] [address] PT Coag (PPP) [Time] 11.2 s Normal 9.0-12.0 [facility] Comment on above: Result Comment: . Performed By: #### P T #### [facility] [address] [place] [address] CR Femur 2+ Views Lefton CR Femur 2+ Views Left Patient Name: CHARLI PORRAS Diagnostic Radiology Exam Date/Time 08/16/2018 16:30:00 EDT Exam CR Femur 2+ Views Left n Ordering Physician MD LESLIE, SOHAN MEDINA Accession Number [id number] CPT4 Codes 34175 () Reason For Exam to see top [...] Transcribed Date and Time: 08/16/2018 4:59 Normal [facility] CR Knee 1 or 2 Views Lefton 08-16-2018 CR Knee 1 or 2 Views Left Patient Name: CHARLI PORRAS Diagnostic Radiology Exam Date/Time 08/16/2018 14:53:00 EDT Exam CR Knee 1 or 2 Views Left Ordering Physician FERNY GARCIA NICHOLAS A Accession Number [id number] CPT4 Codes 67505 () Reason For Exam s/p TKA Report [...] Transcribed Date and Time: 08/16/2018 4:59 Normal [facility] Glucose,Bedsideon 08-16-2018 Glucose [Mass/Vol] 292 mg/dL High 70-100 [facility] Comment on above: Result Comment: Test performed by glucose meter. Results may be 10%-15% lower than serum/plasma values. (CLIA ID [id number]) Performed By: #### P T #### [facility] [employer] [facility] [address] [place] [address] Glucose [Mass/Vol] 246 mg/dL High 70-100 [facility] Comment on above: Result Comment: Test performed by glucose meter. Results may be 10%-15% lower than serum/plasma values. (CLIA ID [id number]) Performed By: #### P T #### [facility] [employer] [facility] [address] [place] [address] Glucose [Mass/Vol] 261 mg/dL High 70-100 [facility] Comment on above: Result Comment: Test performed by glucose meter. Results may be 10%-15% lower than serum/plasma values. (CLIA ID [id number]) Performed By: #### P T #### [facility] [address] [place] [address] Glucose [Mass/Vol] 323 mg/dL High 70-[address] [place] [address] Comment on above: Result Comment: Test performed by glucose meter. Results may be 10%-15% lower than serum/plasma values. (CLIA ID [id number]) Performed By: #### B GLU #### [facility] [address] [place] [address] Glucose [Mass/Vol] 333 mg/dL High 70-100 [facility] Comment on above: Result Comment: Test performed by glucose meter. Results may be 10%-15% lower than serum/plasma values. (CLIA ID [id number]) Performed By: #### B GLU #### [facility] [address] [place] [address] Glucose [Mass/Vol] 301 mg/dL High 70-[address] [place] [address] Comment on above: Result Comment: Test performed by glucose meter. Results may be 10%-15% lower than serum/plasma values. (CLIA ID [id number]) Performed By: #### B GLU #### [facility] [address] [place] [address] Glucose [Mass/Vol] 317 mg/dL High 70-[address] [place] [address] Comment on above: Result Comment: Test performed by glucose meter. Results may be 10%-15% lower than serum/plasma values. (CLIA ID [id number]) Performed By: #### B GLU #### [facility] [address] [place] [address] Glucose [Mass/Vol] 198 mg/dL High 70-[address] [place] [address] Comment on above: Result Comment: Test performed by glucose meter. Results may be 10%-15% lower than serum/plasma values. (CLIA ID [id number]) Performed By: #### B GLU #### [facility] [address] [place] [address] Op Noteon 08-16-2018 Op Note [facility] [address] [facility] [address] Dept: [phone] Loc: [phone] Operative Report Patient Name: Charli Porras Date of : 1950 Date of Surgery: 08/16/18 Providers Performing: Surgeon: Sohan Gilliland MD Sr. Logistics Analyst (s): cookie [email or web address], qamar guo Preoperative Diagnosis: [...] knee as well as revision performed in [place] by Dr. Graham. Is diagnosed with a [...] and the patient's name, medical record, number, [id number], and operative side was verified with the [...] reverse curettes and pituitary instruments. A laminar corporate banking officer was then placed and a posterior synovectomy [...] motion and patellar tracking, as well as sabianist of the joint line. The components were affixed utilizing the [employer] P antibiotic bone cement in a [...] check Signed by: Sohan Gilliland MD Normal [facility] Prothrombin Timeon 9 INR Coag (PPP) [Relative time] 1.2 High 0.9-1.1 [facility] Comment on above: Result Comment: Campos [...] Infarction Performed By: #### P T #### [facility] [employer] [facility] [address] [place] [address] PT Coag (PPP) [Time] 12.4 s High 9.0-12.0 [facility] [employer] [facility] Comment on above: Result Comment: . Performed By: #### P T #### [facility] [address] [place] [address] TS GELon 08-16-2018 TS GEL ABO Group: A Rh, Gel: NEG Antibody Screen Gel: NEG Normal [facility] Comment on above: Performed By: #### T SGL #### [facility] [address] [place] [address] CULTURE ANAEROBEon 9 CULTURE ANAEROBE CULTURE ANAEROBE --> Status: F No growth of anaerobes at 5 days. Normal [facility] Comment on above: Order Comment: Speci men Source Comment:not recvd in sterile container,centrif. in spud Performed By: #### D LAUREN WALTON, DEMETRIUS #### [employer] [address] [address] CULTURE AND STAIN - FLUIDon 05-23-2018 CULTURE AND STAIN - FLUID CULTURE & STAIN - FLUID --> Status: F No growth at 5 days. [facility] Comment on above: Order Comment: Speci men Source Comment:not recvd in sterile container,centrif. in spud Performed By: #### D LAUREN WALTON, DEMETRIUS #### [facility] [employer] [address] [address] Basic Metabolic Panelon 05-04 Calcium [Mass/Vol] 9.1 mg/dL Normal 8.4-10.4 [facility] Comment on above: Performed By: #### D LAUREN WALTON, CRSTL #### [facility] [address] [place] [address] Glucose [Mass/Vol] 165 mg/dL High 70-100 [facility] Comment on above: Performed By: #### D LAUREN WALTON, CRSTL #### [facility] [address] [place] [address] Anion gap [Moles/Vol] 7 Normal [facility] Comment on above: Performed By: #### D LAUREN WALTON, CRSTL #### [facility] [address] [place] [address] CO2 [Moles/Vol] 27 mmol/L Normal 22-30 [facility] Comment on above: Performed By: #### D LAUREN WALTON, CRSTL #### [place] [address] [place] [address] Creatinine [Mass/Vol] 1.58 mg/dL High 0.52-1.25 [facility] Comment on above: Performed By: #### D LAUREN WALTON, CRSTL #### [address] [place] [address] GFR/1.73 sq M predicted among blacks MDRD (S/P/Bld) [Vol rate/Area] 53.0 mL/min/{1.73_m2} Normal >60 [facility] Comment on above: Performed By: #### D LAUREN WALTON, CRSTL #### [address] [place] [address] GFR/1.73 sq M predicted among non-blacks MDRD (S/P/Bld) [Vol rate/Area] 43.7 mL/min/{1.73_m2} Normal >60 [facility] Comment on above: Result Comment: Sour ce- MDRD equation with creatinine calibration to IDMS(NKDEP) eGFR not recommended for drug dose adjustment Performed By: #### D LAUREN WALTON, CRSTL #### [address] [place] [address] Urea nitrogen [Mass/Vol] 33 mg/dL High 7-20 [facility] Comment on above: Performed By: #### D IFBF, FLDCC, CRSTL #### [facility] [address] [place], [place] Chloride [Moles/Vol] 104 mmol/L Normal 98-107 [facility] Comment on above: Performed By: #### D IFBF, FLDCC, CRSTL #### [facility] [address] [place], [place] Potassium [Moles/Vol] 4.3 mmol/L Normal 3.5-5.1 [facility] Comment on above: Performed By: #### D IFBF, FLDCC, CRSTL #### [facility] [address] [place], [place] Sodium [Moles/Vol] 138 mmol/L Normal 135-145 [facility] Comment on above: Performed By: #### D IFBF, FLDCC, CRSTL #### [facility] [address] [place], [place] C-Reactive Proteinon 019 CRP [Mass/Vol] 19.4 mg/L High 0.0-6.0 [facility] Comment on above: Result Comment: . Performed By: #### P T, ESR, CRP2 #### [facility] [address] [place], [place] CR Femur 2+ Views Lefton CR Femur 2+ Views Left Patient Name: CHARLI PORRAS Diagnostic Radiology Exam Date/Time 2018 04:30:02 EST Exam CR Femur 2+ Views Left n Ordering Physician MD SRINIVASA, AVINASH Accession Number [id number] CPT4 Codes 07490 () Reason For Exam proximal femur Report [...] Transcribed Date and Time: 2018 4:34 Normal [facility] CT Head or Brain w/o Contras ton 2018 CT Head or Brain w/o Contrast Patient Name: CHARLI PORRAS CT Exam Date/Time 2018 04:36:[address] Head or Brain w/o Contrast Ordering Physician [id number] SERGEY SANTOS Accession Number [id number] CPT4 Codes 64298 () Reason For Exam HEAD TRAUMA, CLOSED, [...] Transcribed Date and Time: 2018 5:03 Normal [facility] Cell Count,Body Fluidon 05-04 Nucleated Cells 21 {cells}/uL Normal [facility] Comment on above: Performed By: #### D IFBF, FLDCC, CRSTL #### [facility] [address] [place], [place] Fluid Type knee Normal [facility] Comment on above: Performed By: #### D IFBF, FLDCC, CRSTL #### [facility] [address] [place] [address] Crystals,Body Fluidon 2018 Crystals LM Nom (Urine sed) Negative Normal [facility] Comment on above: Performed By: #### D IFBF, FLDCC, CRSTL #### [facility] [address] [place] [address] Fluid Type \[id number]\ Normal [facility] Comment on above: Performed By: #### D IFBF, FLDCC, CRSTL #### [facility] [address] [place], [place] Differential,Body Fluidson 0 2018 Lymphocytes/100 WBC (Bld) 10 % Normal [facility] Comment on above: Performed By: #### D IFBF, FLDCC, CRSTL #### [facility] [address] [place] [address] Monocytes/100 WBC (Bld) 11 % Normal [facility] Comment on above: Performed By: #### D IFBF, FLDCC, CRSTL #### [facility] [address] [place] [address] Neutrophils/100 WBC (Bld) 79 % Normal [facility] Comment on above: Performed By: #### D IFBF, FLDCC, CRSTL #### [facility] [address] [place] [address] Cells Counted for Diff [address] [facility] Comment on above: Performed By: #### D IFBF, FLDCC, CRSTL #### [facility] [address] [place] [address] Glucose,Bedsideon 2018 Glucose [Mass/Vol] 175 mg/dL High 70-100 [facility] Comment on above: Result Comment: Test performed by glucose meter. Results may be 10%-15% lower than serum/plasma values. (CLIA ID [id number]) Performed By: #### D LAUERN WALTON, DEMETRIUS #### [address] [place], [place] Glucose [Mass/Vol] 165 mg/dL High 70-100 [facility] Comment on above: Result Comment: Test performed by glucose meter. Results may be 10%-15% lower than serum/plasma values. (CLIA ID [id number]) Performed By: #### D LAUREN WALTON, ABELTL #### [address] [place], [place] Glucose [Mass/Vol] 144 mg/dL High 70-100 [facility] Comment on above: Result Comment: Test performed by glucose meter. Results may be 10%-15% lower than serum/plasma values. (CLIA ID [id number]) Performed By: #### B GLU #### [address] [place], [place] Hemogramon 2018 Erythrocyte distribution width (RBC) [Ratio] 15.1 % High 11.5-14.5 [facility] Comment on above: Performed By: #### D LAUREN WALTON, DEMETRIUS #### [address] [place], [place] Hematocrit (Bld) [Volume fraction] 40.8 % Normal 40.0-52.0 [facility] Comment on above: Performed By: #### D LAUREN WALTON, CRSTL #### [address] [place], [place] Hemoglobin (Bld) [Mass/Vol] 13.6 g/dL Normal 13.0-18.0 [facility] Comment on above: Performed By: #### D LAUREN WALTON, CRSTL #### [address] [place], [place] MCH (RBC) [Entitic mass] 29.7 pg Normal 26.0-34.0 [facility] Comment on above: Performed By: #### D ANTON FLDCC, CRSTL #### [facility] [address] [place], [place] MCHC (RBC) [Mass/Vol] 33.4 % Normal 32.0-36.0 [facility] Comment on above: Performed By: #### D IFBF FLDCC, CRSTL #### [address] [place], [place] MCV (RBC) [Entitic vol] 89.0 fL Normal 80.0-98.0 S [facility] Comment on above: Performed By: #### D IFBF FLDCC, CRSTL #### [address] [place], [place] Platelet mean volume (Bld) [Entitic vol] 8.1 fL Normal 7.4-10.4 [facility] Comment on above: Performed By: #### D IFDEIDRA FLCAT, CRSTL #### [address] [place], [place] Platelets (Bld) [#/Vol] 144 10*3/uL Normal 140-440 [facility] Comment on above: Performed By: #### D ANTON FLDCJagjit, CRSTL #### [address] [place], [place] RBC (Bld) [#/Vol] 4.59 10*6/uL Normal 4.40-5.90 [facility] Comment on above: Performed By: #### D IFBF FLDCC, CRSTL #### [address] [place], [place] WBC (Bld) [#/Vol] 6.4 10*3/uL Normal 3.6-10.7 [facility] Comment on above: Performed By: #### D IFBF FLDCC, CRSTL #### [address] [place], [place] Prothrombin Timeon 9 INR Coag (PPP) [Relative time] 1.5 High 0.9-1.1 [facility] Comment on above: Result Comment: Campos [...] By: #### P T, ESR, CRP2 #### [facility] [address] [place] [address] PT Coag (PPP) [Time] 14.8 s High 9.0-12.0 [facility] Comment on above: Result Comment: . Performed By: #### P T, ESR, CRP2 #### [facility] [address] [place] [address] STAIN GRAMon 2018 STAIN GRAM STAIN GRAM --> Statu s: F Moderate polymorphonuclear cells/lpf. Moderate mononuclear cells/lpf No organisms seen. Moderate mononuclear cells/lpf No organisms seen. Normal [facility] Comment on above: Order Comment: Speci men Source Comment:not recvd in sterile container, centrif. in spud Performed By: #### C /MARGARITO, S/GRM, CXFLD #### [facility] [address] [place] [address] Sed Rateon 2018 Sed Rate 11 mm/h High 0-10 [facility] Comment on above: Performed By: #### P T, ESR, CRP2 #### [facility] [address] [place] [address] CBC WITH DIFFon 08-25-2016 ABSOLUTE BASO 0.10 K/UL Normal 0.00-0.20 [facility] ABSOLUTE EOS 0.10 K/UL Normal 0-0.33 [facility] ABSOLUTE LYMPHOCYTE 2.00 K/UL Normal 1.1-4.8 [facility] ABSOLUTE MONOCYTE 0.70 K/UL Normal 0.2-0.7 [facility] ABSOLUTE NEUTROPHIL 5.30 K/UL Normal 1.83-8.70 [facility] Basophils Auto #/vol (Bld) 1.0 % Normal 0.0-1.5 [facility] DIFF TYPE AUTO Normal [facility] Eosinophils/100 leukocytes 1.8 % Normal 0.0-3.0 [facility] Erythrocyte distribution width Auto Ratio (RBC) 14 % Normal 10.9-14.3 [facility] Erythrocytes (RBC) 4.74 M/UL Normal 4.50-5.50 [facility] Hematocrit (HCT) 42.2 % Normal 41.0-50.0 [facility] Hemoglobin mass conc (Bld) 14.3 g/dL Normal 13.5-16.5 [facility] Lymphocytes/100 leukocytes 24.3 % Normal 24-44 [facility] MCH 30.3 pg Normal 28.0-34.0 [facility] MCHC mass conc (RBC) 34.0 MG/DL Normal 33.0-37.0 [facility] MCV 89.1 fL Normal 80-100 [facility] Monocytes/100 leukocytes 8.6 % Normal 3.4-9.0 [facility] NEUTROPHIL 64.3 % Normal 40.0-74.0 [facility] Platelets 162 10*3/uL Normal 150-450 [facility] WBC (Leukocytes) 8.2 10*3/uL Normal 4.5-11.0 [facility] PROTIME COUMADINon 7 INR Coag RelTime (PPP) 4.21 HH Abnormal 2.0-3.5 [facility] RADon 08-25-2016 KNEE,LEFT (MIN 4 VIEWS) CPT [id number] [facility] IM Normal [facility] CBC WITHOUT DIFFon 6 Erythrocyte distribution width Auto Ratio (RBC) 14.2 % Normal 10.9-14.3 [facility] Erythrocytes (RBC) 4.87 M/UL Normal 4.50-5.50 [facility] Hematocrit (HCT) 42.7 % Normal 41.0-50.0 [facility] Hemoglobin mass conc (Bld) 14.3 g/dL Normal 13.5-16.5 [facility] MCH 29.4 pg Normal 28.0-34.0 [facility] MCHC mass conc (RBC) 33.5 MG/DL Normal 33.0-37.0 [facility] MCV 87.6 fL Normal 80-100 [facility] Platelets 180 10*3/uL Normal 150-450 [facility] WBC (Leukocytes) 9.6 10*3/uL Normal 4.5-11.0 [facility] COMPREHENSIVE MEon 6 Alanine aminotransferase (ALT) 22 U/L Normal 10-63 [facility] Albumin 4.3 g/dL Normal 3.4-4.8 [facility] Albumin/Globulin Ratio 1.2 {ratio} Normal 1.1-2.2 S [facility] ALK PHOS 44 U/L Normal 42-121 [facility] Anion gap 10 mmol/L Normal 3-11 [facility] Aspartate aminotransferase (AST) 26 U/L Normal 10-41 [facility] Bilirubin (direct) 0.8 mg/dL Normal 0.3-1.5 [facility] Calcium 9.6 mg/dL Normal 8.5-10.5 [facility] Chloride 105 mmol/L Normal 98-107 [facility] CO2 21 mmol/L Normal 21-31 [facility] Creatinine 1.8 mg/dL Abnormal 0.6-1.3 [facility] eGFR (non-black) 45.9 mL/min/{1.73_m2} Abnormal 60.0-128 .0 [facility] eGFR (non-black) 37.9 mL/min/{1.73_m2} Abnormal 60.0-128 .0 [facility] Globulin 3.7 g/dL Normal 1.9-3.9 [facility] Glucose mass conc 101 mg/dL Abnormal 70-99 [facility] Potassium molar conc 4.6 mmol/L Normal 3.6-5.0 [facility] Protein 8 g/dL Abnormal 5.9-7.8 [facility] Sodium 136 mmol/L Normal 135-145 [facility] Urea nitrogen 34 mg/dL Abnormal 6-20 [facility] D DIMERon 04-25-2016 D DIMER 1569.6 H NG/ML Abnormal 0-499 [facility] EKGon 04-25-2016 cardio: EKG Test Reason : Normal [facility] ESR, SED RATEon 04-25-2016 ESR /SEDRATE 10 MM/HR Normal 0-20 [facility] HEMOGLOBIN A1Con 04-25-2016 Hemoglobin A1c/Hemoglobin.total mass fraction (Bld) 7 % Abnormal 4.0-6.0 [facility] TSHon 04-25-2016 Thyroid stimulating hormone (TSH) 2.79 UIU/ML Normal 0.34-5.60 [facility] CBC WITH DIFFon 01-04-2016 ABSOLUTE BASO 0.10 K/UL Normal 0.00-0.20 [facility] ABSOLUTE EOS 0.20 K/UL Normal 0-0.33 [facility] ABSOLUTE LYMPHOCYTE 1.80 K/UL Normal 1.1-4.8 [facility] ABSOLUTE MONOCYTE 0.50 K/UL Normal 0.2-0.7 [facility] ABSOLUTE NEUTROPHIL 3.30 K/UL Normal 1.83-8.70 [facility] Basophils Auto #/vol (Bld) 0.9 % Normal 0.0-1.5 [facility] DIFF TYPE AUTO Normal [facility] Eosinophils/100 leukocytes 4.2 % Abnormal 0.0-3.0 [facility] Erythrocyte distribution width Auto Ratio (RBC) 14.8 % Abnormal 10.9-14.3 [facility] Erythrocytes (RBC) 4.52 M/UL Normal 4.50-5.50 [facility] Hematocrit (HCT) 40.1 % Abnormal 41.0-50.0 [facility] Hemoglobin mass conc (Bld) 13.3 g/dL Abnormal 13.5-16.5 [facility] Lymphocytes/100 leukocytes 29.9 % Normal 24-44 [facility] MCH 29.4 pg Normal 28.0-34.0 [facility] MCHC mass conc (RBC) 33.2 MG/DL Normal 33.0-37.0 [facility] MCV 88.7 fL Normal 80-100 [facility] Monocytes/100 leukocytes 8.5 % Normal 3.4-9.0 [facility] NEUTROPHIL 56.5 % Normal 40.0-74.0 [facility] Platelets 168 10*3/uL Normal 150-450 [facility] WBC (Leukocytes) 5.9 10*3/uL Normal 4.5-11.0 [facility] COMPREHENSIVE MEon 6 Alanine aminotransferase (ALT) 20 U/L Normal 10-63 [facility] Albumin 4 g/dL Normal 3.4-4.8 [facility] Albumin/Globulin Ratio 1.1 {ratio} Normal 1.1-2.2 S [facility] ALK PHOS 43 U/L Normal 42-121 [facility] Anion gap 9 mmol/L Normal 3-11 [facility] Aspartate aminotransferase (AST) 20 U/L Normal 10-41 [facility] Bilirubin (direct) 0.6 mg/dL Normal 0.3-1.5 [facility] Calcium 9.6 mg/dL Normal 8.5-10.5 [facility] Chloride 108 mmol/L Abnormal 98-107 [facility] CO2 22 mmol/L Normal 21-31 [facility] Creatinine 1.7 mg/dL Abnormal 0.6-1.3 [facility] eGFR (non-black) 49 mL/min/{1.73_m2} Abnormal 60.0-128.0 [facility] eGFR (non-black) 40.5 mL/min/{1.73_m2} Abnormal 60.0-128 .0 [facility] Globulin 3.5 g/dL Normal 1.9-3.9 [facility] Glucose mass conc 263 mg/dL Abnormal 70-99 [facility] Potassium molar conc 4.9 mmol/L Normal 3.6-5.0 [facility] Protein 7.5 g/dL Normal 5.9-7.8 [facility] Sodium 139 mmol/L Normal 135-145 [facility] Urea nitrogen 39 mg/dL Abnormal 6-20 [facility] HEMOGLOBIN A1Con 01-04-2016 Hemoglobin A1c/Hemoglobin.total mass fraction (Bld) 6.7 % Abnormal 4.0-6.0 [facility] LIPID B PROFILEon 01-04-2016 Cholesterol 170 mg/dL Normal 140-200 [facility] HDL Cholesterol 31 mg/dL Normal 29-71 [facility] LDL Cholesterol 102 MG/DL Normal 0-129 [facility] LDL to HDL Ratio 3.3 Normal [facility] Triglyceride 297 mg/dL Abnormal 41-189 [facility] PROTIME COUMADINon 6 INR Coag RelTime (PPP) 3.53 H Abnormal 2.0-3.5 [facility] URINE MICRO ALBUon 6 UR RDM MICROALBUMIN 39.4 H UG/ML Abnormal 0.0-19.0 [facility] Vital Signs Date Time Vital Sign Value Performing Clinician Faci lity 08-23-2024 13:35-0400 Body temperature 97.9 [degF] No Primary Care Physician [facility] 08-23-2024 13:35-0400 Diastolic blood pressure 61 mm[Hg] No Primary Care Physician [facility] 08-23-2024 13:35-0400 Heart rate 67 /min No Primary Care Physician [facility] 08-23-2024 13:35-0400 Respiratory rate 17 /min No Primary Care Physician [facility] 08-23-2024 13:35-0400 SaO2% (BldA) [Mass fraction] 95 % No Primary Care Physician [facility] 08-23-2024 13:35-0400 Systolic blood pressure 151 mm[Hg] No Primary Care Physician [facility] 08-23-2024 06:00-0400 Body mass index (BMI) [Ratio] 46 kg/m2 No [facility] [facility] 08-23-2024 06:00-0400 Body weight 141 kg No Primary Care Physician [facility] 08-22-2024 11:03-0400 Body height 175.26 cm No Primary Care Physician [facility] 08-21-2024 09:18-0400 Inhaled oxygen flow rate 2 L/min No Primary Care Physician [facility] 08-20-2024 06:00-0400 Body temperature 98.1 [degF] No Primary Care Physician [facility] 08-20-2024 06:00-0400 Diastolic blood pressure 58 mm[Hg] No Primary Care Physician [facility] 08-20-2024 06:00-0400 Heart rate 78 /min No Primary Care Physician [facility] 08-20-2024 06:00-0400 Inhaled oxygen flow rate 2 L/min No Primary Care Physician [facility] 08-20-2024 06:00-0400 Respiratory rate 18 /min No Primary Care Physician [facility] 08-20-2024 06:00-0400 SaO2% (BldA) [Mass fraction] 98 % No Primary Care Physician [facility] 08-20-2024 06:00-0400 Systolic blood pressure 100 mm[Hg] No Primary Care Physician [facility] 08-19-2024 23:48-0400 Body height 175.01 cm No Primary Care Physician [facility] 08-19-2024 23:48-0400 Body mass index (BMI) [Ratio] 44.6 kg/m2 No Primary Care Physician [facility] 08-19-2024 23:48-0400 Body weight 136.8 kg No Primary Care Physician [facility] 11-06-2022 16:37-0400 Body temperature 97.8 [degF] [facility] 11-06-2022 16:37-0400 Diastolic blood pressure 91 mm[Hg] [facility] 11-06-2022 16:37-0400 Heart rate 72 /min [facility] 11-06-2022 16:37-0400 Respiratory rate 18 /min [facility] 11-06-2022 16:37-0400 SaO2% (BldA) [Mass fraction] 96 % [facility] 11-06-2022 16:37-0400 Systolic blood pressure 154 mm[Hg] [facility] 11-06-2022 14:11-0400 Body height 175.26 cm [facility] 11-06-2022 14:11-0400 Body mass index (BMI) [Ratio] 48.2 kg/m2 [facility] 11-06-2022 14:11-0400 Body weight 148.32 kg [facility] 06-02-2022 08:00-0500 Heart rate 92 /min Ericka Ange Work Phone: [facility] 06-02-2022 08:00-0500 Respiratory rate 88 /min Ericka Ange Work Phone: [facility] 06-02-2022 08:00-0500 SaO2% (BldA) [Mass fraction] 90 % Ericka Ange Work Phone: [facility] 06-02-2022 07:55-0500 Body temperature 97.6 [degF] Ericka Ange Work Phone: [facility] 06-02-2022 07:55-0500 Diastolic blood pressure 64 mm[Hg] Ericka Ange Work Phone: [facility] 06-02-2022 07:55-0500 Systolic blood pressure 125 mm[Hg] Ericka Ange Work Phone: [facility] 05-31-2022 19:20-0500 Body height 175.26 cm Ericka Ange Work Phone: [facility] 05-31-2022 19:20-0500 Body mass index (BMI) [Ratio] 44.2 kg/m2 Ericka Ange Work Phone: [facility] 05-31-2022 19:20-0500 Body weight 135.99 kg Ericka Ange Work Phone: [facility] 04-23-2022 15:22-0500 SaO2% (BldA) [Mass fraction] 96 % Ericka Ange Work Phone: [facility] 04-23-2022 11:55-0500 Body temperature 97.9 [degF] Ericka Ange Work Phone: [facility] 04-23-2022 11:55-0500 Diastolic blood pressure 94 mm[Hg] Ericka Ange Work Phone: [facility] 04-23-2022 11:55-0500 Heart rate 85 /min Ericka Ange Work Phone: [facility] 04-23-2022 11:55-0500 Respiratory rate 17 /min Ericka Ange Work Phone: [facility] 04-23-2022 11:55-0500 SaO2% (BldA) [Mass fraction] 98 % Ericka Ange Work Phone: [facility] 04-23-2022 11:55-0500 Systolic blood pressure 130 mm[Hg] Ericka Ange Work Phone: [facility] 04-19-2022 14:43-0500 Diastolic blood pressure 70 mm[Hg] Ericka Ange Work Phone: [facility] 04-19-2022 14:43-0500 Heart rate 89 /min Ericka Ange Work Phone: [facility] 04-19-2022 14:43-0500 Respiratory rate 18 /min Ericka Ange Work Phone: [facility] 04-19-2022 14:43-0500 SaO2% (BldA) [Mass fraction] 99 % Ericka Ange Work Phone: [facility] 04-19-2022 14:43-0500 Systolic blood pressure 107 mm[Hg] Ericka Ange Work Phone: [facility] 04-19-2022 03:04-0500 Body temperature 99.4 [degF] Ericka Ange Work Phone: [facility] 04-19-2022 00:16-0500 Body height 175.26 cm Ericka Ange Work Phone: [facility] 04-19-2022 00:16-0500 Body weight 148.78 kg Ericka Ange Work Phone: [facility] 08-25-2016 19:00-0400 BP Diastolic 94 mm[Hg] [facility] 08-25-2016 19:00-0400 BP Systolic 162 mm[Hg] [facility] 08-25-2016 19:00-0400 Pulse (Heart Rate) 74 /min [facility] 08-25-2016 19:00-0400 Respiratory Rate 18 /min [facility] 08-25-2016 14:38-0400 Body Temperature 97.7 [degF] [facility] Encounters Encounter Date Encounter Type Care Provider Facility Start: 08-23-2024 Non-patient / Non-visit Dr. Mao Muse MD [facility] Work Phone: Start: 08-22-2024 Non-patient / Non-visit Dr. Mao Muse MD Located Within [facility] Work Phone: Start: 08-21-2024 Non-patient / Non-visit Dr. Mao Muse MD -[facility] Work Phone: Start: 08-20-2024 End: 08-23-2024 Evaluation and management of inpatient Dr. Saroj Gutierrez DO -Intensive Care Unit Work Phone: Start: 08-20-2024 Non-patient / Non-visit Dr. Bennett DO Located [facility] Work Phone: Start: 08-20-2024 ambulatory No Primary Car e Physician Facility:[facility] Start: 03-18-2024 End: 03-18-2024 Emergency department patient visit [facility] Facility:[facility] Start: 11-06-2022 End: 11-06-2022 Emergency department patient visit [facility] Department Work Phone: Start: 06-06-2022 ambulatory DEVIKA STEIN Facility:[facility] Start: 06-02-2022 Non-patient / Non-visit Alejandra jeanne Ange Work Phone: [facility] INPATIENT Start: 06-01-2022 Non-patient / Non-visit Alejandra ly Ange Work Phone: [facility] INPATIENT Start: 05-31-2022 End: 06-02-2022 Evaluation and management of inpatient Naresh Sainz Facility:[facility] Start: 05-31-2022 End: 06-02-2022 Evaluation and management of inpatient Ericka Ange Work Phone: [facility] Start: 04-23-2022 ambulatory Errol Jagjit [facility] ty:[facility] Start: 04-23-2022 Non-patient / Non-visit Alejandra ly Ange Work Phone: [facility] Hospitalist Start: 04-22-2022 Non-patient / Non-visit Alejandra ly Ange Work Phone: [facility] Hospitalist Start: 04-21-2022 Non-patient / Non-visit Alejandra ly Ange Work Phone: [facility] Hospitalist Start: 04-20-2022 Non-patient / Non-visit Alejandra ly Ange Work Phone: [facility] Hospitalist Start: 04-19-2022 Non-patient / Non-visit Alejandra ly Ange Work Phone: [facility] Hospitalist Start: 04-19-2022 Evaluation and management of inpatient Ericka Ange Work Phone: [facility] 3 Start: 04-19-2022 observation encounter Ericka Ange Work Phone: [facility] Work Phone: Start: 04-19-2022 End: 04-23-2022 ambulatory Ericka Ange Facility:[facility] Start: 04-19-2022 End: 04-23-2022 Evaluation and management of inpatient Ericka Ange Work Phone: [facility] 2 Start: 04-19-2022 End: 04-23-2022 observation encounter Ericka Ange Work Phone: [facility] Work Phone: Start: 03-10-2022 ambulatory Sunita [place] Facility :[facility] Start: 01-08-2022 ambulatory [facility] Facility:[facility] Start: 11-07-2021 ambulatory [facility] Facility:[facility] Start: 08-29-2021 ambulatory [facility] Facility:[facility] Start: 07-02-2021 End: 07-12-2021 Evaluation and management of inpatient UNKNOWN PROVIDER Facility:[facility] Start: 06-26-2021 [facility] Start: 05-22-2021 [facility] Start: 03-20-2021 ambulatory [facility] Facility:[facility] Procedures Date Procedure Procedure Detail Performing Clinician [...] Cholecystectomy SHEILA NICK N Cholesterol MAO ELROY [place] Filter SHELIA BLACKMON Incision of trachea SHEILA DUPREE Microbial culture Ericka oneill Work Phone: Repair of quadriceps SHEILA DUVAL SARS-CoV-2 Rapid RNA (RT-PCR) Ericka Cassidy Work Phone: SARS-CoV-2 Rapid RNA (RT-PCR) Ericka Cassidy Work Phone: Urine culture Ericka campos Work Phone: Urine culture Ericka campos Work Phone: Plan of Treatment Date Care Activity Detail Author Start: 08-23-2024 Referral to service [facility] Start: 08-23-2024 Patient discharge [facility] Start: 08-22-2024 Consultation [facility] Start: 08-22-2024 Referral to automotive service technician [facility] Start: 08-21-2024 [facility] Start: 08-20-2024 Bacteria identified in Blood by Culture Blood Culture [facility] Start: 08-20-2024 Bacteria identified in Urine by Culture Urine Culture [facility] Start: 08-20-2024 Following clinical p athway protocol [facility] Start: 08-20-2024 Assessment of risk o f venous thromboembolism [facility] Start: 08-20-2024 Elevation of head of bed [facility] Start: 08-20-2024 Insertion of cathete r into peripheral vein [facility] Start: 08-20-2024 Measuring intake and output [facility] Start: 08-20-2024 Oxygen therapy [facility] Start: 08-20-2024 Providing care accor ding to standard [facility] Start: 08-20-2024 Referral to occupati onal therapist [facility] Start: 08-20-2024 Referral to service [facility] Start: 08-20-2024 Vital signs measurements [facility] Start: 08-20-2024 End: 08-20-[address] [facility] Start: 08-20-2024 Care regimes management [facility] Start: 08-20-2024 Notification of physician [facility] Start: 08-20-2024 Verification routine [facility] Start: 08-20-2024 Admission procedure [facility] Start: 08-20-2024 Hospital admission, emergency, from emergency room, medical nature [facility] Start: 08-20-2024 End: 08-20-[address] [facility] Start: 06-02-2022 [facility] Start: 06-02-2022 Patient discharge [facility] Start: 05-31-2022 Referral to occupati onal therapist [facility] Start: 05-31-2022 End: 06-01-2022 Referral to service [facility] Start: 05-31-2022 Hospital admission [facility] Start: 05-31-2022 Vascular disease ris k assessment [facility] Start: 04-27-2022 [facility] Start: 04-26-2022 End: 04-26-2022 [facility] Start: 04-25-2022 End: 04-25-2022 [facility] Start: 04-24-2022 End: 04-24-2022 [facility] Start: 04-23-2022 Patient discharge [facility] Start: 04-23-2022 End: 04-23-2022 [facility] Start: 04-22-2022 [facility] Start: 04-21-2022 [facility] Start: 04-21-2022 [facility] Start: 04-21-2022 [facility] Start: 04-21-2022 [facility] Start: 04-20-2022 General health panel [facility] Start: 04-20-2022 [facility] Start: 04-19-2022 Referral to occupati onks therapist [facility] Start: 04-19-2022 Referral to service [facility] Start: 04-19-2022 Hospital admission [facility] Start: 04-19-2022 Vascular disease ris k assessment [facility] Start: 04-19-2022 End: 04-19-2022 [facility] Start: 04-19-2022 [facility] Start: 04-19-2022 End: 04-19-2022 [facility] Start: 04-19-2022 Referral to service [facility] Bacteria identified in Blood by Culture Blood Culture [facility] Bacteria identified in Unspecified specimen by Anaerobe+Aerobe culture [facility] Evaluation of urine specimen [facility] Gabapentin [Mass/vol ume] in Serum, Plasma or Blood [facility] Influenza virus B Ag [Presence] in Unspecified specimen [facility] INR in Platelet poor plasma by Coagulation assay [facility] Ketones [Presence] in Urine [facility] Lactic acid measurement [facility] Microbial culture Blood Culture [facility] Microbial culture Blood Culture [facility] Nitrate [Presence] in Urine [facility] Patient Education [facility] Work Phone: Patient referral [facility] Work Phone: pH of Urine [facility] Prothrombin time (PT ) in Blood by Coagulation assay [facility] SARS-CoV-2 Rapid RNA (RT-PCR) SARS-CoV-2 Rapid RNA (RT-PCR) [facility] Specific gravity of Urine [facility] Urinalysis, blood, qualitative [facility] Urine culture Urine Culture [facility] Urine culture [facility] Urine dipstick for glucose [facility] Urine dipstick for protein [facility] Urine examination [facility] Urine leukocyte test [facility] Immunizations Immunization Date Immunization Notes Care Provider Fa cility pneumococcal polysac charide vaccine, 23 valent SHEILA DUVAL [facility] Payers Date Payer Category Payer Unknown [id number] 2022 Medicare [id number] 2022 Unknown [id number] 2021 Private Health Insurance [id number] 2021 Self-pay 2021 Unknown [id number] Medicare [id number] Medicare MEDICARE OUTPATI ENT PART B [id number] Medicare MEDICARE PART A B [id number] Unknown [id number]. 630 Unknown [id number] 2.16.840.1.134029.3.579.2. 630 Unknown [id number] 2.16.840.1.286815.3.579.2. 630 Unknown [id number] 2.16.840.1.502623.3.579.2. 630 Unknown [id number] 2.16.840.1.431673.3.579.2. 630 Unknown [id number] 2.16.840.1.862651.3.579.2. 630 Unknown [id number] 2.16.840.1.699846.3.579.2. 630 Unknown [facility] [id number] Unknown [id number] 2.16.840.1.711808.3.579.2. 212 Unknown [id number] 2.16.840.1.717587.3.579.2. 212 Unknown [id number] 2.16.840.1.803090.3.579.2. 921 Unknown [id number] 2.16.840.1.942476.3.579.2. 921 Unknown [id number] 2.16.840.1.688144.3.579.2. 462 Unknown [id number] 2.16.840.1.085494.3.579.2. 462 Unknown [id number] 2.16.840.1.881833.3.579.2. 462 Unknown [id number] 2.16.840.1.708780.3.579.2. 462 Unknown [id number] 2.16.840.1.408853.3.579.2. 462 Unknown [id number] 2.16.840.1.687085.3.579.2. 462 Social History Date Type Detail Facility never a smoker [facility] Start: 04-19-2022 End: 08-20-2024 Tobacco smoking status NHIS Never smoked tobacco (finding) [facility] Start: 04-19-2022 No [facility] Start: 1950 Sex Assigned At Male S [facility] Start: 11-06-2022 Tobacco smoking stat us NHIS Unknown if ever smoked [facility] Start: 08-20-2024 Sex Male (finding) [facility] Goals Date Patient Goal Desired Activity /State Functional Status Date Assessment Result Facility 08-23-2024 Functional status Chair [facility] Work Phone: 06-02-2022 Functional status Independent [facility] Work Phone: 06-02-2022 Functional status Speech Pattern Clear [facility] Work Phone: 05-31-2022 Functional status Fair [facility] Work Phone: 05-31-2022 Functional status Support Person Spouse [facility] Work Phone: 04-23-2022 Functional status Independent [facility] Work Phone: 04-22-2022 Functional status Hard of Hearing Coin [facility] Work Phone: 04-19-2022 Functional status Walker-Wheeled Coin Re [facility] Work Phone: 04-19-2022 Functional status Speech Pattern Appropri ate [facility] Work Phone: 04-19-2022 Functional status Normal [facility] Work Phone: Mental Status Date Assessment Result Facility 08-23-2024 Cognitive function Voice/Name [facility] Work Phone: 08-20-2024 Cognitive function Level Of Cons ciousness Follows Commands;Drowsy [facility] Work Phone: 06-02-2022 Cognitive function Impaired Cognition No [facility] Work Phone: 06-01-2022 Cognitive function Cooperative [facility] Work Phone: 04-23-2022 Cognitive function Yes [facility] Work Phone: 04-23-2022 Cognitive function Mood Descript ion Appropriate;[facility] Work Phone: 04-19-2022 Cognitive function Mood Description [facility] Work Phone: Clinical Notes 04-19-2022 to 08-23-2024 Note Date & Type Note Facility 08-23-2024 Note [facility] Medical Records Department [address] [place] [address] Discharge Summary 08/23/24 1117 MR#: [id number] Acct: [id number] Name: CHARLI PORRAS Rep #: [id number] : 1950 74 From: Mao Muse MD PCP: ABHISHEK [facility] Status:ADM IN Location: [place] [address] Providers Date of Admission: 08/20/24 Date of Discharge: 08/23/24 Primary Care Physician: MELY DUARTE Consultations 08/20/24 06:10 Consult: Livestock Farm Manager / Pulmonary Medicine Routine Consulting Provider: Intensivists/Pulmonary [...] is a 74-year-old male who presented to [facility] ED on 08/20/2024 with worsening confusion and [...] ??? Admit under inpatient status to ICU. Livestock Farm Manager consulted. The patient meets sepsis criteria with [...] and blood cultures. 08/20: Patient seen by photographic reproduction technician. Antibiotic Zosyn changed to cefepime 1 g [...] flu and RSV are negative seen by photographic reproduction technician. Renal bladder ultrasound shows mild bilateral renal [...] Jardiance. Blood glucose (more content not included)... [facility] 08-20-2024 History and physi liz note [facility] 08-20-2024 Evaluation note Diagnosis Onset Date Resolution Acute metabolic encephalopathy acute August 20, 2024 3:15am Septic shock acute August 20, 2024 3:15am UTI (urinary tract infection) acute August 20, 2024 3:15am [facility] Work Phone: 1(612) 833-759004-19-2025 Evaluation note* Diagnosis Onset Date Resolution Status [...] diabetes mellitus inactive August 20, 2024 3:15am [facility] Work Phone: 1(901) 773-618204-19-2025 History and physical note Author Saroj Gutierrez [facility] Note Date/Time August 20, 2024 5:[address] [facility] Medical Records Department [address] [place] [address] H&P Exam - Hospitalist 08/20/24 0220 MR#: [id number] Acct: [id number] Name: CHARLI PORRAS Rep #:[id number] : 1950 74 From: Saroj scott DO PCP: Care Physician,No Primary Status :ADM IN Location: ICU ICU01-1 HPI - General General Date of Admission: 08/20/24 Date of Service: 08/20/24 Chief Complaint: Worsening confusion with tremors and weakness HPI Narrative CHARLI PORRAS, is a 74 M who presented to [facility] ED on 08/20/2024 with worsening confusion with [...] and told me that he was at [facility]. However he could not answer any other [...] patient being moved over to the ICU. [facility] Medical History Kidney disease Gout Dementia Diabetes HTN (hypertension) Home Medications ?Medication ?Instructions ?Recorded ?Last Taken ?Type allopurinol 100 mg tablet 100 mg PO DAILYCM 05/03/13 U nknown History gabapentin 800 mg tablet 800 mg PO TIDCM 05/03/13 Unk nown History qpgwgabh-ukj-bbsvv acid 0.4 1 ea PO DAILY 05/03/13 [...] (Auto) 87.2 H, Lymph % (Auto) 6.3 L,[place] % (Auto) 4.9, Eos % (Auto) 0.1, [...] Clarity Cloudy, Urine pH 6.0, Ur Specific [place] 1.010, Urine Protein 100 H, Urine Glucose [...] Three-vessel coronary calcification appears moderate. Reading Location: [id number] Assessment & Plan Assessment/Plan (1) Septic shock: (2) UTI (urinary tract infection): (3) Acute metabolic encephalopathy: PLAN: Plan Patient is a 74-year-old male who presented to [facility] ED on 08/20/2024 with worsening confusion with tremors and weakness. 1. Septic shock suspected secondary to UTI ? Admit under inpatient status to ICU. Livestock Farm Manager consulted. Presentation seems most consistent with urosepsis [...] 75 minutes. Charges/Coding Visit Charges Inpatient E&M: 13690 Init Hosp L3 08/20/24 9283 <Electronically signed by Saroj Gutierrez DO> Cosigner [...] DO; No Primary Care Physician ~* Signed [facility] Work Phone: 1(613) 223-432304-19-2025 Radiology Diagnostic study note [facility] Imaging Services [address] [place] [address] CTA Chest W/WO Contrast MR#: [id number] Acct: [id number] Name: CHARLI PORRAS Rep #: [id number] : 1950 M 74 From: Clay Garcia MD PCP: Care Physician,No Primary Status: REG ER Study:CTA Chest W/WO Contrast Date of Exam: 08/20/24 Exam# [id number] Ordering Dr: Dede Brown DO PROCEDURE: CTA [...] inferior vena cava filter suggested on the export manager views. Motion artifact significantly limits the evaluation. No large central or hilar saddle pulmonary embolism. Interlobar to subsegmental branches are not well evaluated. Thoracic aorta appears within limits. Three-vessel coronary calcification appears moderate. No pericardial or pleural effusion. Images of the upper abdomen appear unremarkable. [place] artifact from left shoulder replacement and anterior [...] Three-vessel coronary calcification appears moderate. Reading Location: [facility] CC: Kaushik Brown DO; No Primary Care Physician ~ Caustic Room Operator: Signed [facility]07-06-2023 Hospital Discharge instructions Additional Instructions Please follow-up with your doctor in 3 to 5 days return for any worsening of symptoms.[facility] Work Phone: 1(798) 361-246001-30-2023 Discharge summary Author Tello Lynch [facility] June 02, 2022 12:17pm Note Date/Time June 02, 2022 1 2:00pm [place] [address] Discharge Summary Signed Patient: CHARLI PORRAS MR#: [id number] : 1950 Acct:[id number] Age/Sex: 72 / M ADM Date: Loc: 2014-05 Date of Service: 3 Clinician: Tello Lynch MD cc: Ericka Cassidy DS: Providers Date of admission: 05/31/22 18:18 Primary care physician: Ericka Cassidy DS: Summary Hospital course: This is a 72-year-old white male with significant past medical history of morbidobesity, diabetes mellitus type 2, dementia, hyperlipidemia, hypertension and DVT who presented to [facility] with complaints of altered mental status. Patient [...] MPV Neut % (Auto) Lymph % (Auto) [place] % (Auto) Eos % (Auto) Baso % (Auto) Neut # (Auto) Lymph # (Auto) [place] # (Auto) Eos # (Auto) Baso # [...] (Auto) 73.1 Lymph % (Auto) 16.2 L [place] % (Auto) 9.4 H Eos % (Auto) 0.9 Baso % (Auto) 0.4 Neut # (Auto) 6.0 Lymph # (Auto) 1.3 [place] # (Auto) 0.8 H Eos # (Auto) [...] MPV Neut % (Auto) Lymph % (Auto) [place] % (Auto) Eos % (Auto) Baso % (Auto) Neut # (Auto) Lymph # (Auto) [place] # (Auto) Eos # (Auto) Baso # [...] Tello Lynch Billing Billing Category Hospital Discharge: 88129 DC2 > 30 min Documented By: Tello Lynch MD 06/02/22 1056 Signed By: <Electronically signed by Tello Lynch MD> 06/02/22 1117 [facility] Work Phone: 1(240) 919-634201-30-2023 Progress note Author Barbara Gipson [facility] June 02, 2022 11:33am Note Date/Time June 02, 2022 1 1:33am [place] [address] Wound Care Progress Note Signed Patient: CHARLI PORRAS MR#: [id number] : 1950 Acct:[id number] Age/Sex: 72 / M ADM Date: Loc: 2T 2014-05 Date of Service: 3 Clinician: Barbara Gipson RN cc: Wound Care Progress Note - Wound Care Date of Admission: 05/31/22 18:18 Reason for Consult: buttocks Significant History: Medical history: Reports anemia, arthritis, dementia, diabetes, hypertension andrenal disease Additional Medical History: bundle branch block / dvt / [place] filter Surgical history: Reports adenoidectomy, cholecystectomy, knee [...] wounds every Thursday [ ] [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] Left Lateral Foot -Wound Type diabetic wound [...] Serous -Odor No Odor -Wound Bed Appearance [place],Peeling Skin -Length (cm) 12.0 -Width (cm) 12.0 [...] Per the patient, he follows with a scientific specialist in [place]; does not recallhis name. I educated the [...] wounds; patient instructed to follow up with scientific specialist outpatient Documented By: Barbara Gipson RN 06/02/22 1024 Signed By: <Electronically signed by Barbara Gipson RN> 06/02/22 1033 [facility] Work Phone: 1([phone]) 915-679801-28-2023 History and physical note Author Naresh Sainz [facility] May 31, 2022 7:30pm Note Date/Time May 31, 2022 7 :25pm [place] [address] History & Physical Signed Patient: CHARLI PORRAS MR#: [id number] : 1950 Acct:[id number] Age/Sex: 72 / M ADM Date: [...] History: bundle branch block / dvt / takotna filter Surgical history: Reports adenoidectomy, cholecystectomy, knee [...] 0.2 mg/24 hr weekly 1 ea TD Bdeolla@1000 #4 ea 04/23/22 05/31/22 Unknown Rx transdermal [...] Cloudy Urine pH 6.0 (4.6-8.0) Ur Specific Meraux 1.020 (1.001-1.035) Urine Protein 30 A (NEGATIVE) [...] hypertension (5) Chronic anticoagulation: Code(s): Z79.01 - joint terminal attack controller (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 of anticoagulants (6) Diabetes mellitus: Qualifiers: Diabetes mellitus type: type 2 Diabetes mellitus custodial insulin use:with custodial use Diabetes mellitus complication status: with neurologic complications Diabetes mellitus complication detail: with polyneuropathy Qualified Code(s): E11.42 - Type 2 diabetes mellitus with diabetic polyneuropathy; Z79.4 - [facility] (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 of insulin Code(s): E11.9 - [...] L 93 Billing Billing Category Inpatient Initial: 39745 IP3 High Documented By: Naresh Sainz DO 05/31/22 18 18 Signed By: <Electronically signed by Naresh Sainz DO> 05/31/22 1830 [facility] Work Phone: 1(487) 517-268212-21-2022 Progress note Author Armen Carl [facility] April 23, 2022 7:53am Note Date/Time April 23, 2022 7:53am [address] [address] Progress Note Signed Patient: CHARLI PORRAS MR#: [id number] : 1950 Acct:[id number] Age/Sex: 71 / M ADM Date: [...] Sodium Sliding Scale PO Not Given [facility] Vital Signs Temperature 98.9 F 04/23/22 00:00 [...] (Auto) 69.3 Lymph % (Auto) 15.1 L [place] % (Auto) 11.9 H Eos % (Auto) 2.8 Baso % (Auto) 0.9 Neut # (Auto) 4.8 Lymph # (Auto) 1.1 [place] # (Auto) 0.8 H Eos # (Auto) [...] MPV Neut % (Auto) Lymph % (Auto) [place] % (Auto) Eos % (Auto) Baso % (Auto) Neut # (Auto) Lymph # (Auto) [place] # (Auto) Eos # (Auto) Baso # [...] MPV Neut % (Auto) Lymph % (Auto) [place] % (Auto) Eos % (Auto) Baso % (Auto) Neut # (Auto) Lymph # (Auto) [place] # (Auto) Eos # (Auto) Baso # [...] (Auto) 66.0 Lymph % (Auto) 18.2 L [place] % (Auto) 10.1 H Eos % (Auto) 4.7 H Baso % (Auto) 1.0 Neut # (Auto) 4.6 Lymph # (Auto) 1.3 [place] # (Auto) 0.7 Eos # (Auto) 0.3 [...] Dry, Intact, Normal Color, Normal Turgor and [place] HEENT Exam Head: Present Normocephalic and Atraumatic [...] signed by Armen Carl MD> 04/23/22 0653 [facility] Work Phone: 1([phone] 940-162612-20-2022 Consult note Author Mary Beth Landaverde [facility] April 22, 2022 12:21pm Note Date/Time April 22, 2022 10:13am [place] [id number] Consult Note Signed with Sabrina Patient: CHARLI PORRAS MR#: [id number] : 1950 Acct:[id number] Age/Sex: 71 / M ADM Date: [...] a MoCA assessment. Patient was started on Ipjecso16 mg daily. Patient failed to follow-up outpatient, [...] an appoint with a neurologist established at [facility] in June, patient's instructed to keep this [...] present illness: 71-year-old white male presented to [facility] 04-19-2022 for acute onset of weakness/fever/confusion. The patient has past medical history of obesity, type2 diabetes, hypertension, CKD, history of DVT on oral anticoagulants, MCI and neuropathy. The patient has history of following in the [facility] for mild cognitive impairment last seen in [...] [facility] had [...] as stated General General: Present as per [facility] Past Medical/Surgical History Attestation statement: The following information was validated with the patient. Medical history: Reports anemia, arthritis, diabetes, hypertension and renal disease Additional Medical History: bundle branch block / dvt / takotna filter Surgical history: Reports adenoidectomy, cholecystectomy, knee [...] Lymph % (Auto) 15.1 L (24.0-44.0) % [place] % (Auto) 11.9 H (3.4-9.0) % [place] # (Auto) 0.8 H (0.20-0.70) K/uL Urine [...] Clear Urine pH 5.0 (4.6-8.0) Ur Specific Meraux 1.015 (1.001-1.035) Urine Protein Negative (NEGATIVE) mg/dL [...] Acute (6) Chronic anticoagulation: Code(s): Z79.01 - [facility] (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 of anticoagulants Status: Acute (7) [...] baseline hx of MCI; will r/o acute CAR DISTRIBUTOR pathology -reviewed CTH report and noted NAD [...] your kind referral. Documented By: Mary Beth Landaverde NP 04/22/22911 Signed By: <Electronically signed by Mary Beth Landaverde> 04/22/22926 [facility] Work Phone: 1([phone]) 872-307212-20-2022 Consult note Author Armen Carl [facility] April 22, 2022 7:39am Note Date/Time April 22, 2022 7:24am [facility] [address] [place] [address] Consult Note Signed Patient: CHARLI PORRAS MR#: [id number] : 1950 Acct:[id number] Age/Sex: 71 / M ADM Date: [...] History: bundle branch block / dvt / takotna filter Surgical history: Reports adenoidectomy, cholecystectomy, knee [...] Dry, Intact, Normal Color, Normal Turgor and [place] HEENT Exam Head: Present Normocephalic and Atraumatic [...] <Electronically signed by Armen Carl MD> 04/22/2239 [facility] Work Phone: 1(854) 212-624512-19-2022 Progress note Author Barbara Gipson [facility] April 21, 2022 11:50am Note Date/Time April 21, 2022 11:49am [facility] [address] [place] [address] Wound Care Progress Note Signed Patient: CHARLI PORRAS MR#: [id number] : 1950 Acct:[id number] Age/Sex: 71 / M ADM Date: Loc: 3026-1 Date of Service: 2 Clinician: Barbara Gipson RN cc: Wound Care Progress Note - Wound Care Date of Admission: 04/19/22 05:52 Reason for Consult: coccyx wound Significant History: Medical history: Reports anemia, arthritis, diabetes, hypertension and renal disease Additional Medical History: bundle branch block / dvt / takotna filter Surgical history: Reports adenoidectomy, cholecystectomy, knee [...] Date Recorded By Document 04/21/22 10:38 WATEZEQUIEL [id number] 04/21/22 10:39 WATKTAS 04/21/22 10:38 Incision/Wound/Dressing Assessment & Care [ ] Re-assess and measure wounds every Thursday [ ] [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] Left Ishium -Wound Type Abrasion -Comment friction injury -Drainage Amount None -Odor No Odor -Wound Bed Appearance [place],Red -Length (cm) 3.0 -Width (cm) 5.0 -Depth (cm) 0.1 -Margin Description Indistinct -Surrounding Tissue Appearance Dark Red -Surrounding Tissue Temperature Warm -Dressing Status Open to Air -Irrigant Solution Soap and Water -Skin Cream/Lotion Calazyme Current Interventions & Plan: Patient resting in bed in semifowlers position. Alert; states he's leaving and his left to checkout; knows he is at [facility] but seems confused. Oxygen via nasal cannula; [...] signed by Barbara Gipson RN> 04/21/22 1050 [facility] Work Phone: [phone]) 268-876812-17-2022 History and physical note Author Judy Boo [facility] April 19, 2022 7:12pm Note Date/Time April 19, 2022 7:12pm [facility] [address] [place], [place] [id number] History & Physical Signed Patient: CHARLI PORRAS MR#: [id number] : 1950 Acct:[id number] Age/Sex: 71 / M ADM Date: [...] (Recent tremors); Absent convulsions, dizziness or headache(s) [facility] Past Medical/Surgical History Attestation statement: The following information was validated with the patient. Medical history: Reports anemia, arthritis, diabetes, hypertension and renal disease Additional Medical History: bundle branch block / dvt / takotna filter Surgical history: Reports adenoidectomy, cholecystectomy, knee [...] Lymph % (Auto) 12.6 L (24.0-44.0) % [place] # (Auto) 0.8 H (0.20-0.70) K/uL PT [...] (40.0-74.0) % Lymph % (Auto) (24.0-44.0) % [place] # (Auto) (0.20-0.70) K/uL PT (9.5-12.9) s [...] Hazy Urine pH 5.0 (4.6-8.0) Ur Specific Meraux 1.015 (1.001-1.035) Urine Protein Trace A (NEGATIVE) [...] Acute (6) Chronic anticoagulation: Code(s): Z79.01 - [facility] (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 of anticoagulants Status: Acute (7) [...] or Rubs Billing Billing Category Observation Initial: 51438 O3 High Documented By: Judy Boo MD 04/19/221803 Signed By: <Electronically signed by Judy Boo MD> 04/19/221811 [facility] Work Phone: discharge summary Author Verónica Martineztaylor [facility] April 23, 2022 11:07am Note Date/Time April 23, 2022 11:01am [facility] [address] [place] [address] Discharge Summary Signed Patient: CHARLI PORRAS MR#: [id number] : 1950 Acct:[id number] Age/Sex: 71 / M ADM Date: [...] follow-up with his already established neurologist at [facility], they agree to keep appointment in June [...] medication (5) Chronic anticoagulation: Code(s): Z79.01 - [facility] (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 of anticoagulants Status: Chronic Assessment/Plan: [...] it. Patient does have a neurologist at [facility] and agrees to keep already scheduled appointment [...] MPV Neut % (Auto) Lymph % (Auto) [place] % (Auto) Eos % (Auto) Baso % (Auto) Neut # (Auto) Lymph # (Auto) [place] # (Auto) Eos # (Auto) Baso # [...] (Auto) 66.0 Lymph % (Auto) 18.2 L [place] % (Auto) 10.1 H Eos % (Auto) 4.7 H Baso % (Auto) 1.0 Neut # (Auto) 4.6 Lymph # (Auto) 1.3 [place] # (Auto) 0.7 Eos # (Auto) 0.3 [...] MPV Neut % (Auto) Lymph % (Auto) [place] % (Auto) Eos % (Auto) Baso % (Auto) Neut # (Auto) Lymph # (Auto) [place] # (Auto) Eos # (Auto) Baso # [...] MPV Neut % (Auto) Lymph % (Auto) [place] % (Auto) Eos % (Auto) Baso % (Auto) Neut # (Auto) Lymph # (Auto) [place] # (Auto) Eos # (Auto) Baso # [...] improvement Instructions 1:: followup with neurology at [facility] as already scheduled Discharge Instructions Activity: increase [...] Verónica Atkinson Billing Billing Category Observation Discharge: 85670 OD Documented By: BRANT Cabrera 04/23/22 0830 Signed By: <Electronically signed by BRANT Atkinson> 04/23/[address] [place] [address] Work Phone: evaluation note* Diagnosis Onset Date Resolution Status Acute confusion acute Acute UTI acute [facility] Work Phone: evaluation note* Diagnosis Onset Date Resolution Status Abdominal pain acute Acute confusion acute Acute UTI acute Candiduria acute Morbid obesity acute Neuropathy acute Benign hypertension chronic 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 Work Phone: Progress note Author Barbara Gipson [facility] April 23, 2022 12:41pm Note Date/Time April 23, 2022 12:41pm [address] [address] Wound Care Progress Note Signed Patient: CHARLI PORRAS MR#: [id number] : 1950 Acct:[id number] Age/Sex: 71 / M ADM Date: Loc: 2004-05 Date of Service: 2 Clinician: Barbara Gipson RN cc: Wound Care Progress Note - Wound Care Date of Admission: 04/19/22 05:52 Reason for Consult: coccyx wound Significant History: Medical history: Reports anemia, arthritis, diabetes, hypertension and renal disease Additional Medical History: bundle branch block / dvt / takotna filter Surgical history: Reports adenoidectomy, cholecystectomy, knee [...] Date Recorded By Document 04/23/22 11:36 WATDECLANCARO [id number] 04/23/22 11:38 WATKTAS 04/23/22 11:36 Incision/Wound/Dressing Assessment & Care [ ] Re-assess and measure wounds every Thursday [ ] [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] Right 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 -Wound Type Abrasion -Drainage Amount None -Odor No Odor -Wound Bed Appearance Red,Peeling Skin -Length (cm) 2.0 -Width (cm) 1.0 -Depth (cm) 0.1 -Margin Description Indistinct -Surrounding Tissue Appearance [place] -Surrounding Tissue Temperature Warm -Dressing Status Open to Air -Irrigant Solution Soap and Water -Skin Cream/Lotion Calazyme Left Ishium -Wound Type Abrasion -Drainage Amount None -Odor No Odor -Wound Bed Appearance Red,Peeling Skin -Length (cm) 3.0 -Width (cm) 2.0 -Depth (cm) 0.1 -Margin Description Indistinct -Surrounding Tissue Appearance [place] -Surrounding Tissue Temperature Warm -Dressing Status Open [...] signed by Barbara Gipson RN> 04/23/22 1141 [facility] Work Phone: reason for referral (narrative)No reason for referral information availableWGerman [facility] Work Phone: [facility] [address] [facility] [address] Dept: [phone] Loc: [phone] Adult Hip and Knee Reconstruction Service Patient [...] April 19 2 022 3:33pm Power of Germ Drier No April 19, 2022 3:33pm Tissue Donor No April 19, 2 022 3:33pm Advance Directive Response Recorded Date/ Time Advance Directives No May 31, 2022 6:53pm Living Will No May 31 6:53pm Organ Donor No May 31 6:53pm Power of Germ Drier No May 31, 2022 6:53pm Relationship Ariadna () cell phone [phone] June 01, 2022 1:07pm Tissue Donor No May 31 6:53pm Advance Directive Response Recorded Date/ Time Living Will No November 06, 2022 2 :32pm Power of Germ Drier No November 06, 2022 2:32pm Advance Directive Response Recorded Date/ Time Living Will No August 20, 2024 12:00am Do you have a Healthcare Power of Germ Drier? No August 20, 2024 12:00am Chief Complaint [...] section and content) DATE CREATED AUTHOR 02/10/2019 [facility] DATE CREATED AUTHOR AUTHOR'S ORGANIZ ATION 05/12/2019 [facility] DATE CREATED AUTHOR AUTHOR'S ORGANIZ ATION 07/18/2020 [facility] DATE CREATED AUTHOR AUTHOR'S ORGANIZ ATION 03/15/2022 [facility] DATE CREATED AUTHOR AUTHOR'S ORGANIZ ATION 06/11/2022 [facility] DATE CREATED AUTHOR AUTHOR'S ORGANIZ ATION 07/10/2022 [facility] [facility] DATE CREATED AUTHOR AUTHOR'S ORGANIZ ATION 01/10/2023 [facility] ([place]) DATE CREATED AUTHOR AUTHOR'S ORGANIZ ATION 09/11/2024 [facility] Care Teams (unrecognized sec tion and content) [...] Active Armen Carl MD Other Provider Active [place] [facility] Other Provider Active Judy Boo MD Attending Provider Active Team Status: Active Member Role Status Dates Ericka Cassidy Primary Care Provider Active Thompson Hayden MD Emergency Provider Active Verito Devi MD Admit Provider, Other Provider Acti ve Charisse Valencia MD Other Provider Active Armen Carl MD Other Provider Active [place] [facility] Other Provider Active Mary Beth [...] Active Armen Carl MD Other Provider Active [facility] Other Provider Active BRANT Cabrera Attending Provider Active Team Status: Inactive Member Role Status Dates Ericka Cassidy Primary Care Provider Active Thompson Hayden MD Emergency Provider Active Verito Devi MD Admit Provider, Attending Provider Active Charisse Valencia MD Other Provider Active Armen Carl MD Other Provider Active [facility] Other Provider Active Team Status: Active Member [...] Prov ider [facility] Provider Active [facility] Other Provider Active Team Status: Active [...] BE BASED ON THE PRIMARY CLINICAL RECORDS. [facility] [facility]. provides no warranty or guarantee of the accuracy or completeness of information in this document.
[2024-10-14 00:38] LABS: Reflex Lactate? Y
[2024-10-14 01:41] LABS: Lactic Acid 1.6 mmol/L (0.0-2.0)
[2024-10-14] MEDS: 0.9% Normal Saline (1000mL) 1,000 ML 999 ML IV ×2 (02:25→03:34)
[2024-10-14 05:05] LABS: Absolute Lymphocyte Count 1.61 X10^3/uL (0.83-4.51); Absolute Neutrophil Count 3.8 X10^3/uL (2.0-7.7); Basophil# 0.04 X10^3/uL; Basophil% 0.6 % (0-1); Eosinophils% 3.2 % (0-5); Hematocrit 40.9 % (40-54); Hemoglobin 13.2 g/dL (13.0-16.5); Lymphocyte # 1.61 X10^3/ul (0.83-4.51); Lymphocyte % 26.1 % (19-41); Mean Corp Hgb Conc 32.3 g/dL (32-36); Mean Corpuscular Hgb 30.3 pg (27.0-32.0); Mean Corpuscular Volume 93.8 fL (80-94); Mean Platelet Vol. 9.4 fl (6.2-12.0); Monocyte# 0.48 X10^3/uL; Monocyte% 7.8 % (0-10); NRBC Flagged by Analyzer 0 % (0-5); Neutrophil # 3.76 X10^3/uL (2.7-7.7); Platelet Count 117 K/mm3 (150-450); RBC Distribution Width CV 14.6 % (11.6-14.6); RBC Distribution Width SD 50.6 fl (35.1-43.9); Red Blood Count 4.36 M/mm3 (4.6-6.2); White Blood Count 6.2 K/mm3 (4.4-11.0)
[2024-10-14 05:51] LABS: Magnesium 1.9 mg/dL (1.5-2.2); Phosphorus 2.9 mg/dL (2.7-4.5)
[2024-10-14 06:03] LABS: AST(SGOT) 27 U/L (<=37); Alanine Aminotransfer ALT/SGPT 14 U/L (<=46); Albumin, Serum 3.4 g/dL (3.4-4.8); Alkaline Phosphatase 76 U/L (40-129); Anion Gap 12 (5-15); BUN 19 mg/dL (4-19); BUN/Creat Ratio 11.8 RATIO (10-20); Calcium,Total 8.4 mg/dL (7.6-11.0); Carbon Dioxide 19.8 mmol/L (21.0-32.0); Chloride 105 mmol/L (98-108); Creatinine, Serum 1.63 mg/dL (0.70-1.20); EST Glomerular Filtration Rate 44 (>60); Estimated Creatinine Clearance 54.22 ml/min (50-250); Globulin 3.4 g/dL (2.2-4.2); Glucose 128 mg/dL (70-99); Potassium 4.3 mmol/L (3.3-5.1); Protein, Total 6.8 g/dL (5.9-8.4); Sodium Level 136 mmol/L (133-145)
[2024-10-14] MEDS: Heparin Injection (Vial) 5,000 UNIT/ML VIAL 5000 UNIT SC ×3 (06:07→21:42)
[2024-10-14] MEDS: Levothyroxine 50 MCG Tablet PO (06:08)
[2024-10-14 06:52] LABS: Bedside Glucose 114 mg/dL (74-106)
[2024-10-14] MEDS: Meropenem 1 GM in 0.9% Normal Saline (100mL MB+) 100 ML IV ×2 (09:27→21:43)
[2024-10-14] MEDS: Gabapentin 400 MG Capsule PO ×3 (09:29→16:26)
[2024-10-14] MEDS: Bisacodyl 5 MG Tablet PO (09:29)
[2024-10-14] MEDS: Ondansetron 4 MG/2 ML Vial IV (09:32)
[2024-10-14] MEDS: QUEtiapine 25 MG Tablet 50 MG PO (09:34)
[2024-10-14] MEDS: Ezetimibe 10 MG Tablet PO (09:34)
[2024-10-14] MEDS: DULoxetine Hcl 60 MG Capsule PO (09:34)
[2024-10-14] MEDS: Empagliflozin 25 MG Tablet PO (09:34)
[2024-10-14] MEDS: Pramipexole Di-HCl 0.125 MG Tablet PO ×2 (09:34→21:41)
[2024-10-14] MEDS: Allopurinol 100 MG Tablet PO (09:34)
[2024-10-14] MEDS: traMADol 50 MG Tablet PO ×4 (09:37→21:41)
[2024-10-14] MEDS: Insulin Lispro 100 UNIT/ML INSULN.PEN SC ×2 (11:17→16:22)
[2024-10-14 11:49] LABS: Bedside Glucose 168 mg/dL (74-106)
--- NOTE | 2024-10-14 13:00 | CASEMGMT ---
RN?CM?COMBINATION WELDER?CM?to room for initial transition planning/care coordination?assessment.?RN?CM?introduced self and role at [facility].? Pt resting in bed in no distress at this time.? and daughter, Lori, @ bedside. Pt has hx of dementia. Care providers, pharmacy, and demographics verified by . Strata: 3 PCP: PILO Eng, w/[facility] visiting physicians. Specialists: none. states it is too difficult to transport him. Preferred Pharmacy: [facility] Insurance:Aurea THOMSON Dual, [facility] Prescription Benefit:?yes LNOK: , Ariadna. Dtr, Lori. Son, Rickey. Living Arrangements: Lives w/ and son in 2-story home. FFSU. provides all care for pt, including toileting, transferring, bathing/dressing, med mgnt, meals, and all other home mgnt tasks. Pt is able to feed himself. Transportation:? drives. She states has much difficulty transporting pt. DME: Has the following DME:? lift chair, BSC, walker. Pt does have a shower chair, but states too difficult to get him in/out of shower, so she sponge-bathes him. HHC/SNF: Hx [facility] in [place] and [facility]. Also has had [facility] recently. Discussed discharge. states pt has had a decline in his strength and would like [place] to go to [place]. 1st choice is [facility] and 2nd choice is [facility]. She declines wanting list of other SNF options unless neither of these facilities can accept pt. Lilly ISBELL, made aware. PLAN:??SNF. PT/OT evals pending. Gissell BSN?RN?CM
--- NOTE | 2024-10-14 13:48 | CASEMGMT ---
SUKHI was informed patient's family would like for patient to go to [facility] or [facility]. [facility] does not take [place]. SUKHI asked Karolina sales/alex personnel assistant to please send referral once therapy has seen patient. Plan: Possibly [facility] pending referral and acceptance. Lilly Henriquez RADAR SYSTEMS ENGINEER OLEG
--- NOTE | 2024-10-14 15:26 | CHAPLAIN ---
Type of Pastoral Visit _x__ Initial Visit ___ Follow-up Visit ___ On-call Visit ___ General Patient Visit ___ Spiritual Assessment ___ Family Conference ___ Bereavement ___ Rapid Response ___ Code Blue ___ Other (describe below) Pastoral Care Referral From ___ Patient _x__ Family ___ Nurse ___ Physician ___ Electron Beam Operator ___ Store Person ___ Other (describe below) Sacrament/Intervention _x__ Active listening ___ Anointing ___ Catholic ___ Bereavement ___ Communion ___ Ximena exploration ___ ___ Life review _x__ Prayer ___ Reconciliation ___ Sacrament of Sick _x__ Supportive presence ___ Wedding ___ Other (describe below) Pastoral Comments patient is welcoming and pleasant; pt shares some humor; pt has some memory issues but is able to answer questions and he indicates that he is doing okay; pt does ask for a prayer; time given to have casual conversation
[2024-10-14] MEDS: traZODone 50 MG Tablet PO ×2 (16:26→21:42)
[2024-10-14 16:49] LABS: Bedside Glucose 171 mg/dL (74-106)
--- NOTE | 2024-10-14 18:36 | PCM.PN.HOSP ---
Reason for Visit Reason for Visit: Diagnoses Sepsis, unspecified organism (10/13/24) Acidosis, unspecified (10/13/24) Metabolic encephalopathy (10/13/24) Urinary tract infection, site not specified (10/13/24) Subjective Subjective Patient was seen and examined today, he is a poor informant, I reviewed his problem list and he does have a history of dementia. According to case management, patient's family wants him placed in a custodial facility. I obtained the patient's urine culture which was collected on 10/10/2024, it grew out low numbers of Pseudomonas aeruginosa that was sensitive to a wide variety of antibiotics including the quinolones. Lab obtained at the same time showed a normal white blood cell count and a creatinine of 1.72. Glucose was 183 Objective Data Objective Data Vital Signs: Vital Signs Temp Pulse Resp BP Pulse Ox O2 Del Method 97.8 F 97 16 130/85 H 97 Room Air 10/14/24 14:34 10/14/24 14:34 10/14/24 14:34 10/14/24 14:34 10/14/24 14:34 10/14/24 14:34 Oxygen Delivery Method Room Air Weight: 138.7 kg Body Mass Index (BMI) 45.1 Intake & Output: Intake and Output for Last 24 Hours 10/12/24 10/13/24 10/14/24 23:59 23:59 23:59 Intake Total 1000 / 1000 2220 / 2220 Output Total 2049 / 2049 Balance 1000 / 1000 170 / 170 Lab / Micro Data 10/14/24 04:02 10/14/24 04:02 Labs: Laboratory Results - last 24 hr 10/13/24 20:33: WBC 8.1, RBC 4.59 L, Hgb 14.0, Hct 42.8, MCV 93.2, MCH 30.5, MCHC 32.7, RDW Std Deviation 50.2 H, RDW Coeff of Veronica 14.6, Plt Count 142 L, MPV 9.1, Immature Gran % (Auto) 1.000 H, Neut % (Auto) 67.1, Lymph % (Auto) 21.5, [place] % (Auto) 6.6, Eos % (Auto) 2.9, Baso % (Auto) 0.9, Absolute Neuts (auto) 5.5, Absolute Lymphs (auto) 1.75, Nucleated RBC % 0, Sodium 135, Potassium 4.3, Chloride 101, Carbon Dioxide 19.3 L, Anion Gap 15, BUN 21 H, Creatinine 1.96 H, Estim Creat Clear Calc 44.76 L, Est GFR (MDRD) Non-Af 35 L, BUN/Creatinine Ratio 10.7, Glucose 239 H, Lactic Acid 3.7 H*, Calcium 8.9, Urine Color Yellow, Urine Clarity Turbid, Urine pH 6.0, Ur Specific [place] 1.020, Urine Protein 100 H, Urine Glucose (UA) 1000 H, Urine Ketones Negative, Urine Occult Blood 150 H, Urine Nitrite Negative, Urine Bilirubin Negative, Urine Urobilinogen Normal, Ur Leukocyte Esterase 500 H, Urine RBC 0 SEEN, Urine WBC >100 SEEN, Ur Squamous Epith Cells 0 SEEN, Urine Bacteria 0 SEEN, Urine Mucus 0 SEEN 10/14/24 01:08: Lactic Acid 1.6 10/14/24 04:02: WBC 6.2, RBC 4.36 L, Hgb 13.2, Hct 40.9, MCV 93.8, MCH 30.3, MCHC 32.3, RDW Std Deviation 50.6 H, RDW Coeff of Veronica 14.6, Plt Count 117 L, MPV 9.4, Immature Gran % (Auto) 1.300 H, Neut % (Auto) 61.0, Lymph % (Auto) 26.1, [place] % (Auto) 7.8, Eos % (Auto) 3.2, Baso % (Auto) 0.6, Absolute Neuts (auto) 3.8, Absolute Lymphs (auto) 1.61, Nucleated RBC % 0, Sodium 136, Potassium 4.3, Chloride 105, Carbon Dioxide 19.8 L, Anion Gap 12, BUN 19, Creatinine 1.63 H, Estim Creat Clear Calc 54.22, Est GFR (MDRD) Non-Af 44 L, BUN/Creatinine Ratio 11.8, Glucose 128 H, Calcium 8.4, Phosphorus 2.9, Magnesium 1.9, Total Bilirubin 0.50, AST 27, ALT 14, Alkaline Phosphatase 76, Total Protein 6.8, Albumin 3.4, Globulin 3.4, Albumin/Globulin Ratio 1.0 10/14/24 06:09: POC Glucose 114 H 10/14/24 11:13: POC Glucose 168 H 10/14/24 16:21: POC Glucose 171 H Radiography Diagnostic Testing: Radiology Impression Abdomen/Pelvis CT 10/13/24 21:33 IMPRESSION: Urinary bladder wall thickening which may represent detrusor muscle hypertrophy or cystitis. Correlate with urinalysis. Dense colonic stool which may suggest constipation. IVC filter. If not actively managed by Interventional Radiology, consider consult. Reading Location: [place] [address] Physical Exam Const alert and no apparent distress Constitutional Narrative: Patient has class III obesity General Appearance: cooperative, well kempt and well developed Orientation / Consciousness: awake, oriented to person and confused HEENT normocephalic, head/scalp atraumatic and moist oral mucous membranes Eyes PERRL, EOMs intact bilaterally and conjunctivae normal Neck supple, no JVD, thyroid normal and no carotid bruits General: trachea midline Resp normal respiratory effort, no retractions, no use of accessory muscles and clear to auscultation bilaterally Auscultation: Negative for rales, rhonchi or wheezes Cardio regular rate, regular rhythm, S1 normal heart sound, S2 normal heart sound, no murmurs, no rub and no gallops GI normal to inspection, nondistended, normoactive bowel sounds, soft to palpation, non-tender and non-distended Extremity normal to inspection and no clubbing, cyanosis or edema Skin no rashes or lesions noted General Skin Exam: no breakdown Neuro CN's II-XII intact bilaterally, moves all extremities, no focal motor deficits and no sensory deficits noted Sensorium / Orientation: awake, alert, oriented to person and oriented to place Speech: speech normal Psych Psych Narrative: Patient exhibits some confusion, he does not appear to be agitated Assessment & Plan Assessment/Plan (1) UTI (urinary tract infection): PLAN: Plan 1. Bacteriuria with Pseudomonas-low numbers of organisms were noted-patient will remain on meropenem until the urine culture this admission is resulted #2 dementia-complicates care, management, recovery, and prognosis #3 stage IIIa chronic kidney disease-complicates care, management, recovery, and prognosis #4 class III obesity-complicates care, management, recovery, and prognosis #5 hypothyroidism-patient is on Synthroid #6 type 2 diabetes-fingerstick blood sugars will be monitored, sliding scale insulin will be given #7 acute debility-patient will be seen by PT and OT, family has requested placement in a custodial facility #8 lactic acidosis-corrected at this time I do not feel the patient has sepsis at this time or septic shock, I am not sure what caused the patient's lactic acidosis. Total clinical time spent by myself addressing the patient's medical issues, reviewing all of his data, and collaborating with the patient's care team: 50 minutes Charges/Coding Visit Charges Inpatient E&M: 69389 [facility] Hosp L3
[2024-10-14] MEDS: 0.9% Saline Lock 10 ML Syringe IV ×2 (19:58→21:44)
[2024-10-14] MEDS: Acetaminophen 325 MG Tablet 650 MG PO (21:41)
[2024-10-14] MEDS: Donepezil HCl 10 MG Tablet PO (21:41)
[2024-10-14] MEDS: Nystatin Powder 15gm Bottle 1 APPLIC TOPICAL (21:42)
[2024-10-14] MEDS: Menthol/Lanolin/Calamine/Znox 113 GM Tube 1 APPLIC TOPICAL (21:42)
[2024-10-14] MEDS: Insulin Glargine-YFGN 100 UNIT/ML Pen 75 UNIT SC (21:57)
[2024-10-14 22:11] LABS: Bedside Glucose 135 mg/dL (74-106)
[2024-10-15 03:30] VITALS: BP 152/78; PULSE 71; RESP 18; TEMP 36.9; O2SAT 98
[2024-10-15 04:48] VITALS: BMI 42.7
[2024-10-15] MEDS: Meropenem 1 GM in 0.9% Normal Saline (100mL MB+) 100 ML IV (06:36)
[2024-10-15] MEDS: 0.9% Saline Lock 10 ML Syringe IV (06:36)
[2024-10-15] MEDS: Heparin Injection (Vial) 5,000 UNIT/ML VIAL 5000 UNIT SC ×3 (06:40→21:47)
[2024-10-15] MEDS: Levothyroxine 50 MCG Tablet PO (06:40)
[2024-10-15 07:01] LABS: Bedside Glucose 109 mg/dL (74-106)
[2024-10-15 08:01] VITALS: BP 159/72; PULSE 75; RESP 18; TEMP 36.6; O2SAT 97
[2024-10-15] MEDS: DULoxetine Hcl 60 MG Capsule PO (08:10)
[2024-10-15] MEDS: Empagliflozin 25 MG Tablet PO (08:11)
[2024-10-15] MEDS: Ezetimibe 10 MG Tablet PO (08:11)
[2024-10-15] MEDS: QUEtiapine 25 MG Tablet 50 MG PO (08:11)
[2024-10-15] MEDS: Pramipexole Di-HCl 0.125 MG Tablet PO ×2 (08:12→21:47)
[2024-10-15] MEDS: Allopurinol 100 MG Tablet PO (08:12)
[2024-10-15] MEDS: Menthol/Lanolin/Calamine/Znox 113 GM Tube 1 APPLIC TOPICAL ×2 (08:13→21:46)
[2024-10-15] MEDS: Gabapentin 400 MG Capsule PO ×3 (08:17→17:03)
[2024-10-15] MEDS: traMADol 50 MG Tablet PO ×4 (08:17→21:50)
[2024-10-15] MEDS: Nystatin Powder 15gm Bottle 1 APPLIC TOPICAL ×2 (08:17→21:47)
--- NOTE | 2024-10-15 08:24 | CASEMGMT ---
Social Work Referral sent to [facility] via [facility]. MICAELA Malone
[2024-10-15] MEDS: Bisacodyl 5 MG Tablet PO (11:26)
[2024-10-15 12:18] LABS: Bedside Glucose 129 mg/dL (74-106)
[2024-10-15 14:17] VITALS: BP 141/74; PULSE 76; RESP 14; TEMP 36.6; O2SAT 95
[2024-10-15] MEDS: traZODone 50 MG Tablet PO ×2 (17:04→21:46)
--- NOTE | 2024-10-15 17:14 | PCM.PN.HOSP ---
Reason for Visit Reason for Visit: Diagnoses Sepsis, unspecified organism (10/13/24) Acidosis, unspecified (10/13/24) Metabolic encephalopathy (10/13/24) Urinary tract infection, site not specified (10/13/24) Subjective Subjective Patient was seen and examined today, physical therapy has the patient up and walking a few steps in the [place]. Patient's urine grew out yeast, I made the decision to stop his meropenem. Objective Data Objective Data Vital Signs: Vital Signs Temp Pulse Resp BP Pulse Ox O2 Del Method 97.8 F 76 14 141/74 H 95 Room Air 10/15/24 14:17 10/15/24 14:17 10/15/24 14:17 10/15/24 14:17 10/15/24 14:17 10/15/24 14:23 Oxygen Delivery Method Room Air Weight: 131.1 kg Body Mass Index (BMI) 42.7 Intake & Output: Intake and Output for Last 24 Hours 10/13/24 10/14/24 10/15/24 23:59 23:59 23:59 Intake Total 1000 / 1000 2700 / 2700 1040 / 1040 Output Total 2850 / 2850 1325 / 1325 Balance 1000 / 1000 -150 / -150 -285 / -285 Lab / Micro Data 10/14/24 04:02 10/14/24 04:02 Labs: Laboratory Results - last 24 hr 10/14/24 21:29: POC Glucose 135 H 10/15/24 06:38: POC Glucose 109 H 10/15/24 11:26: POC Glucose 129 H Micro: Microbiology 10/13/24 20:30 Urine, Clean Catch Urine Culture - Preliminary Yeast Physical Exam Narrative alert and no apparent distress Constitutional Narrative: Patient has class III obesity General Appearance: cooperative, well kempt and well developed Orientation / Consciousness: awake, oriented to person and confused HEENT normocephalic, head/scalp atraumatic and moist oral mucous membranes Eyes PERRL, EOMs intact bilaterally and conjunctivae normal Neck supple, no JVD, thyroid normal and no carotid bruits General: trachea midline Resp normal respiratory effort, no retractions, no use of accessory muscles and clear to auscultation bilaterally Auscultation: Negative for rales, rhonchi or wheezes Cardio regular rate, regular rhythm, S1 normal heart sound, S2 normal heart sound, no murmurs, no rub and no gallops GI normal to inspection, nondistended, normoactive bowel sounds, soft to palpation, non-tender and non-distended Extremity normal to inspection and no clubbing, cyanosis or edema Skin no rashes or lesions noted General Skin Exam: no breakdown Neuro CN's II-XII intact bilaterally, moves all extremities, no focal motor deficits and no sensory deficits noted Sensorium / Orientation: awake, alert, oriented to person and oriented to place Speech: speech normal Psych Psych Narrative: Patient exhibits some confusion, he does not appear to be agitated Assessment & Plan Assessment/Plan (1) Physical debility: PLAN: Plan 1. Acute debility secondary to class III obesity and dementia-family wants the patient to be placed in a long term facility, we are awaiting pre-CERT #2 bacteriuria with Pseudomonas-patient was treated as an outpatient with Cipro, meropenem today was stopped #3 dementia-complicates care, management, recovery, and prognosis #4 stage IIIa chronic kidney disease-complicates care, management, recovery, and prognosis #5 class III obesity-complicates care, management, recovery, prognosis #6 type 2 diabetes-blood sugars will be monitored via fingerstick blood sugars, sliding scale insulin will be administered as indicated #7 hypothyroidism-patient is on Synthroid #8 lactic acidosis-etiology unclear I do not feel the patient had acute cystitis or urinary tract infection on admission, I do not feel the patient had sepsis at this time or septic shock. Total clinical time spent by myself addressing the patient's medical issues, reviewing all of his data, and collaborating with patient's care team: 35 minutes Charges/Coding Visit Charges Inpatient E&M: 98794 Subs Hosp L2
[2024-10-15 17:24] LABS: Bedside Glucose 138 mg/dL (74-106)
[2024-10-15] MEDS: Tamsulosin HCl 0.4 MG Capsule 0.8 MG PO (17:40)
[2024-10-15 19:56] VITALS: BP 149/59; PULSE 81; RESP 14; TEMP 36.6; O2SAT 96
[2024-10-15] MEDS: Donepezil HCl 10 MG Tablet PO (21:47)
[2024-10-15] MEDS: Insulin Lispro 100 UNIT/ML INSULN.PEN SC (21:51)
[2024-10-15] MEDS: Insulin Glargine-YFGN 100 UNIT/ML Pen 75 UNIT SC (21:53)
[2024-10-15 22:31] LABS: Bedside Glucose 246 mg/dL (74-106)
[2024-10-16 02:20] VITALS: BP 124/70; PULSE 78; RESP 18; TEMP 36.9; O2SAT 95
[2024-10-16 03:17] VITALS: BMI 44.4
[2024-10-16] MEDS: Heparin Injection (Vial) 5,000 UNIT/ML VIAL 5000 UNIT SC ×3 (06:13→21:51)
[2024-10-16] MEDS: Levothyroxine 50 MCG Tablet PO (06:13)
[2024-10-16] MEDS: Insulin Lispro 100 UNIT/ML INSULN.PEN SC ×2 (06:13→11:43)
[2024-10-16 06:35] LABS: Bedside Glucose 178 mg/dL (74-106)
[2024-10-16 07:36] VITALS: BP 144/64; PULSE 76; RESP 18; TEMP 36.6; O2SAT 94
[2024-10-16] MEDS: Gabapentin 400 MG Capsule PO ×3 (07:51→17:11)
[2024-10-16] MEDS: Allopurinol 100 MG Tablet PO (07:52)
[2024-10-16] MEDS: Bisacodyl 5 MG Tablet PO (09:33)
[2024-10-16] MEDS: Ezetimibe 10 MG Tablet PO (09:33)
[2024-10-16] MEDS: Pramipexole Di-HCl 0.125 MG Tablet PO ×2 (09:33→21:52)
[2024-10-16] MEDS: Empagliflozin 25 MG Tablet PO (09:34)
[2024-10-16] MEDS: Menthol/Lanolin/Calamine/Znox 113 GM Tube 1 APPLIC TOPICAL ×2 (09:34→21:50)
[2024-10-16] MEDS: DULoxetine Hcl 60 MG Capsule PO (09:34)
[2024-10-16] MEDS: QUEtiapine 25 MG Tablet 50 MG PO (09:35)
[2024-10-16] MEDS: Nystatin Powder 15gm Bottle 1 APPLIC TOPICAL ×2 (09:37→21:52)
[2024-10-16] MEDS: traMADol 50 MG Tablet PO ×3 (09:37→21:55)
[2024-10-16 12:10] LABS: Bedside Glucose 185 mg/dL (74-106)
--- NOTE | 2024-10-16 12:34 | PN.HOSP_ITS ---
Reason for Visit Reason for Visit: Diagnoses Sepsis, unspecified organism (10/13/24) Acidosis, unspecified (10/13/24) Metabolic encephalopathy (10/13/24) Urinary tract infection, site not specified (10/13/24) Other malaise (10/13/24) Subjective Subjective Patient was seen and examined today, he has no complaints to this examiner. Objective Data Objective Data Vital Signs: Vital Signs Temp Pulse Resp BP Pulse Ox O2 Del Method 97.8 F 76 18 144/64 H 94 Room Air 10/16/24 07:36 10/16/24 07:36 10/16/24 07:36 10/16/24 07:36 10/16/24 07:36 10/16/24 07:55 Oxygen Delivery Method Room Air Weight: 136.3 kg Body Mass Index (BMI) 44.4 Intake & Output: Intake and Output for Last 24 Hours 10/14/24 10/15/24 10/16/24 23:59 23:59 23:59 Intake Total 2700 / 2700 1740 / 1740 800 / 800 Output Total 2850 / 2850 1525 / 1525 750 / 750 Balance -150 / -150 215 / 215 50 / 50 Lab / Micro Data 10/14/24 04:02 10/14/24 04:02 Labs: Laboratory Results - last 24 hr 10/15/24 17:05: POC Glucose 138 H 10/15/24 21:45: POC Glucose 246 H 10/16/24 06:12: POC Glucose 178 H 10/16/24 11:41: POC Glucose 185 H Micro: Microbiology 10/13/24 22:00 Blood Culture (Wb) - Anticubital Left Blood Culture - Preliminary No growth in 48 hours. 10/13/24 22:00 Blood Culture (Wb) - Left Wrist Blood Culture - Preliminary No growth in 48 hours. 10/13/24 20:30 Urine, Clean Catch Urine Culture - Final Yeast, not Callie albicans Physical Exam Narrative alert and no apparent distress Constitutional Narrative: Patient has class III obesity General Appearance: cooperative, well kempt and well developed Orientation / Consciousness: awake, oriented to person and confused HEENT normocephalic, head/scalp atraumatic and moist oral mucous membranes Eyes PERRL, EOMs intact bilaterally and conjunctivae normal Neck supple, no JVD, thyroid normal and no carotid bruits General: trachea midline Resp normal respiratory effort, no retractions, no use of accessory muscles and clear to auscultation bilaterally Auscultation: Negative for rales, rhonchi or wheezes Cardio regular rate, regular rhythm, S1 normal heart sound, S2 normal heart sound, no murmurs, no rub and no gallops GI normal to inspection, nondistended, normoactive bowel sounds, soft to palpation, non-tender and non-distended Extremity normal to inspection and no clubbing, cyanosis, there is significant lower leg edema bilaterally with stasis dermatitis changes of the skin Skin There is stasis dermatitis changes of the lower legs bilaterally General Skin Exam: no breakdown Neuro CN's II-XII intact bilaterally, moves all extremities, no focal motor deficits and no sensory deficits noted Sensorium / Orientation: awake, alert, oriented to person and oriented to place Speech: speech normal Psych Psych Narrative: Patient exhibits some confusion, he does not appear to be agitated Assessment & Plan Assessment/Plan (1) Physical debility: PLAN: Plan 1. Acute debility secondary to class III obesity and dementia-family wants the patient to be [facility] in a [facility] facility, we are awaiting pre-CERT #2 bacteriuria with Pseudomonas-patient was treated as an outpatient with Cipro, meropenem today was stopped, I do not think he needs further treatment at this time #3 dementia-complicates care, management, recovery, and prognosis #4 stage IIIa chronic kidney disease-complicates care, management, recovery, and prognosis #5 class III obesity-complicates care, management, recovery, prognosis #6 type 2 diabetes-blood sugars will be monitored via fingerstick blood sugars, sliding scale insulin will be administered as indicated #7 hypothyroidism-patient is on Synthroid #8 lactic acidosis-etiology unclear #9 lower leg edema bilaterally with stasis dermatitis changes-I have elected to place the patient on Lasix 40 mg daily starting today I do not feel the patient had acute cystitis or urinary tract infection on admission, I do not feel the patient had sepsis at this time or septic shock. Total clinical time spent by myself addressing the patient's medical issues, reviewing all of his data, and collaborating with patient's care team: 35 minutes Charges/Coding Visit Charges Inpatient E&M: [id number] Subs Hosp L2
[2024-10-16] MEDS: Furosemide 40 MG Tablet PO (13:43)
[2024-10-16 13:46] VITALS: BP 135/45; PULSE 76; RESP 15; TEMP 36.6; O2SAT 96
[2024-10-16] MEDS: traZODone 50 MG Tablet PO ×2 (17:11→21:51)
[2024-10-16] MEDS: Tamsulosin HCl 0.4 MG Capsule 0.8 MG PO (17:13)
[2024-10-16 17:25] LABS: Bedside Glucose 156 mg/dL (74-106)
[2024-10-16 19:30] LABS: Bedside Glucose 152 mg/dL (74-106)
[2024-10-16 21:45] VITALS: BP 131/63; PULSE 67; RESP 18; TEMP 36.4; O2SAT 97
[2024-10-16] MEDS: 0.9% Saline Lock 10 ML Syringe IV (21:50)
[2024-10-16] MEDS: Donepezil HCl 10 MG Tablet PO (21:50)
[2024-10-16 22:18] LABS: Bedside Glucose 135 mg/dL (74-106)
[2024-10-17] VITALS (7 sets, daily range): BP systolic 144–156; BP diastolic 69–83; PULSE 66–81; RESP 16–18; TEMP 35.9–36.8; O2SAT 93–98; BMI 43.1
[2024-10-17] MEDS: Insulin Glargine-YFGN 100 UNIT/ML Pen 75 UNIT SC ×2 (00:54→22:47)
[2024-10-17 01:13] LABS: Bedside Glucose 166 mg/dL (74-106)
[2024-10-17] MEDS: Levothyroxine 50 MCG Tablet PO (05:23)
[2024-10-17] MEDS: traMADol 50 MG Tablet PO ×3 (05:23→22:47)
[2024-10-17] MEDS: Heparin Injection (Vial) 5,000 UNIT/ML VIAL 5000 UNIT SC ×3 (05:23→22:46)
[2024-10-17] MEDS: Insulin Lispro 100 UNIT/ML INSULN.PEN SC ×2 (06:51→12:19)
[2024-10-17 07:09] LABS: Bedside Glucose 168 mg/dL (74-106)
[2024-10-17] MEDS: Allopurinol 100 MG Tablet PO (09:05)
[2024-10-17] MEDS: Menthol/Lanolin/Calamine/Znox 113 GM Tube 1 APPLIC TOPICAL ×2 (09:05→22:48)
[2024-10-17] MEDS: Empagliflozin 25 MG Tablet PO (09:06)
[2024-10-17] MEDS: DULoxetine Hcl 60 MG Capsule PO (09:06)
[2024-10-17] MEDS: Furosemide 40 MG Tablet PO (09:06)
[2024-10-17] MEDS: Nystatin Powder 15gm Bottle 1 APPLIC TOPICAL ×2 (09:06→22:48)
[2024-10-17] MEDS: Pramipexole Di-HCl 0.125 MG Tablet PO ×2 (09:06→22:47)
[2024-10-17] MEDS: Ezetimibe 10 MG Tablet PO (09:07)
[2024-10-17] MEDS: QUEtiapine 25 MG Tablet PO (09:07)
[2024-10-17] MEDS: Gabapentin 300 MG Capsule PO ×3 (09:13→16:41)
--- NOTE | 2024-10-17 10:09 | CASEMGMT ---
Discharge Planning Updates sent to [facility]. Acceptance pending. Karolina Nur DC Planning Asst.
[2024-10-17 12:39] LABS: Bedside Glucose 186 mg/dL (74-106)
--- NOTE | 2024-10-17 13:43 | CASEMGMT ---
SUKHI called patient's Ariadna and let her know [facility] does not take patient's insurance. SUKHI also let Ariadna know that a referral was made to [facility] and we are still waiting on [facility] to let us know if they can take patient. SUKHI explained if SNF is plan patient will stay at [facility] until insurance has approved. Ariadna thanked SUKHI for the update. Plan: SNF pending accepting facility and insurance approval. Lilly DEJESUS
--- NOTE | 2024-10-17 14:46 | CASEMGMT ---
Discharge Planning [facility] has accepted and will submit for precert. SW updated. Karolina Nur DC Planning Asst.
--- NOTE | 2024-10-17 15:21 | CASEMGMT ---
SUKHI called patient's Ariadna and let her know patient was accepted at [facility] and they submitted everything to insurance. Patient will stay at [facility] until insurance approves. SUKHI explained this could be tomorrow. Lilly DEJESUS
[2024-10-17] MEDS: traZODone 50 MG Tablet PO ×2 (16:34→22:47)
[2024-10-17] MEDS: Tamsulosin HCl 0.4 MG Capsule 0.8 MG PO (16:34)
[2024-10-17 17:04] LABS: Bedside Glucose 128 mg/dL (74-106)
--- NOTE | 2024-10-17 19:06 | PCM.PN.HOSP ---
Reason for Visit Reason for Visit: Diagnoses Sepsis, unspecified organism (10/13/24) Acidosis, unspecified (10/13/24) Metabolic encephalopathy (10/13/24) Urinary tract infection, site not specified (10/13/24) Other malaise (10/13/24) Subjective Subjective Patient was seen and examined today I talked with his who was in the room at the time of my examination, I told her that I did not feel the patient had a urinary tract infection, she asked me what was causing his temperature before he came in the hospital and I stated that he has not run a temperature since he has been admitted. Patient was treated for a suspected UTI with Cipro, however, as of noted previously, there was only small numbers of Pseudomonas in his urine and I do not think this was a pathogen. I reduced the patient's gabapentin and Seroquel today to see if it would make him more alert. Objective Data Objective Data Vital Signs: Vital Signs Temp Pulse Resp BP Pulse Ox O2 Del Method 96.9 F L 81 16 147/83 H 95 Room Air 10/17/24 14:32 10/17/24 15:00 10/17/24 14:32 10/17/24 14:32 10/17/24 14:32 10/17/24 14:32 Oxygen Delivery Method Room Air Weight: 132.4 kg Body Mass Index (BMI) 43.1 Intake & Output: Intake and Output for Last 24 Hours 10/15/24 10/16/24 10/17/24 23:59 23:59 23:59 Intake Total 1740 / 1740 1440 / 1440 60 / 60 Output Total 1525 / 1525 2800 / 2800 1900 / 1900 Balance 215 / 215 -1360 / -1360 -1840 / -1840 Lab / Micro Data 10/14/24 04:02 10/14/24 04:02 Labs: Laboratory Results - last 24 hr 10/16/24 19:11: POC Glucose 152 H 10/16/24 21:38: POC Glucose 135 H 10/17/24 00:53: POC Glucose 166 H 10/17/24 06:49: POC Glucose 168 H 10/17/24 12:18: POC Glucose 186 H 10/17/24 16:45: POC Glucose 128 H Micro: Microbiology 10/13/24 22:00 Blood Culture (Wb) - Anticubital Left Blood Culture - Preliminary No growth in 48 hours. 10/13/24 22:00 Blood Culture (Wb) - Left Wrist Blood Culture - Preliminary No growth in 48 hours. 10/13/24 20:30 Urine, Clean Catch Urine Culture - Final Yeast, not Callie albicans Physical Exam Narrative alert and no apparent distress Constitutional Narrative: Patient has class III obesity General Appearance: cooperative, well kempt and well developed Orientation / Consciousness: awake, oriented to person and confused HEENT normocephalic, head/scalp atraumatic and moist oral mucous membranes Eyes PERRL, EOMs intact bilaterally and conjunctivae normal Neck supple, no JVD, thyroid normal and no carotid bruits General: trachea midline Resp normal respiratory effort, no retractions, no use of accessory muscles and clear to auscultation bilaterally Auscultation: Negative for rales, rhonchi or wheezes Cardio regular rate, regular rhythm, S1 normal heart sound, S2 normal heart sound, no murmurs, no rub and no gallops GI normal to inspection, nondistended, normoactive bowel sounds, soft to palpation, non-tender and non-distended Extremity normal to inspection and no clubbing, cyanosis, there is significant lower leg edema bilaterally with stasis dermatitis changes of the skin Skin There is stasis dermatitis changes of the lower legs bilaterally General Skin Exam: no breakdown Neuro CN's II-XII intact bilaterally, moves all extremities, no focal motor deficits and no sensory deficits noted Sensorium / Orientation: awake, alert, oriented to person and oriented to place Speech: speech normal Psych Psych Narrative: Patient exhibits some confusion, he does not appear to be agitated Assessment & Plan Assessment/Plan (1) Physical debility: PLAN: Plan 1. Acute debility secondary to class III obesity and dementia-family wants the patient [place] in [place] [facility] [place] facility, we are awaiting pre-CERT #2 bacteriuria with Pseudomonas-patient was treated as an outpatient with Cipro, meropenem was stopped, I do not think he needs further treatment at this time #3 dementia-complicates care, management, recovery, and prognosis #4 stage IIIa chronic kidney disease-complicates care, management, recovery, and prognosis #5 class III obesity-complicates care, management, recovery, prognosis #6 type 2 diabetes-blood sugars will be monitored via fingerstick blood sugars, sliding scale insulin will be administered as indicated #7 hypothyroidism-patient is on Synthroid #8 lactic acidosis-etiology unclear #9 lower leg edema bilaterally with stasis dermatitis changes-I have elected to place the patient on Lasix 40 mg daily I do not feel the patient had acute cystitis or urinary tract infection on admission, I do not feel the patient had sepsis at this time or septic shock. Total clinical time spent by myself addressing the patient's medical issues, reviewing all of his data, and collaborating with patient's care team: 35 minutes Charges/Coding Visit Charges Inpatient E&M: 63156 Subs Hosp L2
[2024-10-17] MEDS: 0.9% Saline Lock 10 ML Syringe IV (22:46)
[2024-10-17] MEDS: Donepezil HCl 10 MG Tablet PO (22:47)
[2024-10-17 23:13] LABS: Bedside Glucose 137 mg/dL (74-106)
[2024-10-18 04:31] VITALS: BMI 43.4
[2024-10-18 05:45] VITALS: BP 143/69; PULSE 80; RESP 17; TEMP 36.6; O2SAT 94
[2024-10-18] MEDS: traMADol 50 MG Tablet PO ×3 (05:55→22:35)
[2024-10-18] MEDS: Heparin Injection (Vial) 5,000 UNIT/ML VIAL 5000 UNIT SC ×3 (05:55→22:35)
[2024-10-18] MEDS: Levothyroxine 50 MCG Tablet PO (05:55)
[2024-10-18] MEDS: Insulin Lispro 100 UNIT/ML INSULN.PEN SC ×2 (05:55→12:48)
[2024-10-18 06:17] LABS: Bedside Glucose 167 mg/dL (74-106)
[2024-10-18 09:16] VITALS: BP 146/78; PULSE 85; RESP 16; TEMP 36.4; O2SAT 93
[2024-10-18] MEDS: Allopurinol 100 MG Tablet PO (09:18)
[2024-10-18] MEDS: Pramipexole Di-HCl 0.125 MG Tablet PO ×2 (09:19→22:35)
[2024-10-18] MEDS: Empagliflozin 25 MG Tablet PO (09:19)
[2024-10-18] MEDS: DULoxetine Hcl 60 MG Capsule PO (09:19)
[2024-10-18] MEDS: Furosemide 40 MG Tablet PO (09:19)
[2024-10-18] MEDS: Ezetimibe 10 MG Tablet PO (09:19)
[2024-10-18] MEDS: Nystatin Powder 15gm Bottle 1 APPLIC TOPICAL ×2 (09:19→22:36)
[2024-10-18] MEDS: QUEtiapine 25 MG Tablet PO (09:19)
[2024-10-18] MEDS: Menthol/Lanolin/Calamine/Znox 113 GM Tube 1 APPLIC TOPICAL ×2 (09:19→22:36)
[2024-10-18] MEDS: Gabapentin 300 MG Capsule PO ×3 (09:23→17:17)
[2024-10-18 12:37] LABS: Bedside Glucose 209 mg/dL (74-106)
[2024-10-18 15:10] VITALS: BP 142/70; PULSE 73; RESP 17; TEMP 36.1; O2SAT 97
[2024-10-18] MEDS: Ondansetron 4 MG/2 ML Vial IV (15:39)
[2024-10-18] MEDS: Docusate Sodium 100 MG Capsule 200 MG PO ×2 (15:39→22:35)
[2024-10-18] MEDS: Tamsulosin HCl 0.4 MG Capsule 0.8 MG PO (17:17)
[2024-10-18] MEDS: traZODone 50 MG Tablet PO ×2 (17:17→22:35)
[2024-10-18 17:24] LABS: Bedside Glucose 145 mg/dL (74-106)
[2024-10-18 20:30] VITALS: BP 149/53; PULSE 76; RESP 16; TEMP 36.6; O2SAT 94
[2024-10-18] MEDS: 0.9% Saline Lock 10 ML Syringe IV (20:33)
[2024-10-18] MEDS: Acetaminophen 325 MG Tablet 650 MG PO (22:35)
[2024-10-18] MEDS: Donepezil HCl 10 MG Tablet PO (22:35)
[2024-10-18] MEDS: Insulin Glargine-YFGN 100 UNIT/ML Pen 75 UNIT SC (22:38)
[2024-10-18 22:45] VITALS: BP 148/69; PULSE 79; RESP 18; TEMP 36.7; O2SAT 96
[2024-10-19 00:28] LABS: Bedside Glucose 144 mg/dL (74-106)
[2024-10-19 05:05] VITALS: BP 140/67; PULSE 72; RESP 18; TEMP 36.9; O2SAT 95
[2024-10-19] MEDS: Heparin Injection (Vial) 5,000 UNIT/ML VIAL 5000 UNIT SC ×2 (05:08→15:06)
[2024-10-19] MEDS: Levothyroxine 50 MCG Tablet PO (05:08)
[2024-10-19] MEDS: traMADol 50 MG Tablet PO ×2 (05:08→15:05)
[2024-10-19 05:24] VITALS: BMI 42.8
[2024-10-19 06:56] LABS: Bedside Glucose 140 mg/dL (74-106)
[2024-10-19] MEDS: Menthol/Lanolin/Calamine/Znox 113 GM Tube 1 APPLIC TOPICAL (08:23)
[2024-10-19] MEDS: Gabapentin 300 MG Capsule PO ×2 (08:23→12:02)
[2024-10-19] MEDS: Ezetimibe 10 MG Tablet PO (08:24)
[2024-10-19] MEDS: Empagliflozin 25 MG Tablet PO (08:24)
[2024-10-19] MEDS: Furosemide 40 MG Tablet PO (08:24)
[2024-10-19] MEDS: DULoxetine Hcl 60 MG Capsule PO (08:25)
[2024-10-19] MEDS: Allopurinol 100 MG Tablet PO (08:25)
[2024-10-19] MEDS: Pramipexole Di-HCl 0.125 MG Tablet PO (08:25)
[2024-10-19] MEDS: Docusate Sodium 100 MG Capsule 200 MG PO (08:25)
[2024-10-19] MEDS: Nystatin Powder 15gm Bottle 1 APPLIC TOPICAL (08:26)
[2024-10-19] MEDS: QUEtiapine 25 MG Tablet PO (08:26)
--- NOTE | 2024-10-19 09:20 | CASEMGMT ---
Discharge Planning A list of?SNF providers including quality and resource use data and consistent with the patient's preferred geographic region, medical needs, and insurance network was created in [employer] Guide.? This list was provided to the SW. Karolina Nur Discharge Planning Asst.
--- NOTE | 2024-10-19 09:50 | CASEMGMT ---
Discharge Planning Call rec'd from pts insurance stating that [facility] is out of network. Call placed to Kayla at [facility] and she confirmed this and said that they were trying to get one-time contract. SW updated pts and she would like referral made to 1. [facility] 2. [place] [facility] [place]. [facility] asked to cancel referral. Karolina Nur DC Planning Asst.
--- NOTE | 2024-10-19 09:59 | CASEMGMT ---
Addendum entered by Karolina Nur 10/19/24 10:55: [facility] has accepted and will submit for precert. SW updated. Karolina Nur DC Planning Asst. Original Note: Discharge Planning Referral sent to [facility]. Karolina Nur DC Planning Asst.
[2024-10-19 10:24] LABS: Absolute Lymphocyte Count 1.16 X10^3/uL (0.83-4.51); Absolute Neutrophil Count 3.4 X10^3/uL (2.0-7.7); Basophil# 0.04 X10^3/uL; Basophil% 0.8 % (0-1); Eosinophil# 0.12 X10^3/uL; Eosinophils% 2.3 % (0-5); Hematocrit 39.9 % (40-54); Hemoglobin 13.3 g/dL (13.0-16.5); Lymphocyte # 1.16 X10^3/ul (0.83-4.51); Lymphocyte % 22.7 % (19-41); Mean Corp Hgb Conc 33.3 g/dL (32-36); Mean Corpuscular Hgb 30.5 pg (27.0-32.0); Mean Corpuscular Volume 91.5 fL (80-94); Mean Platelet Vol. 8.8 fl (6.2-12.0); Monocyte# 0.33 X10^3/uL; Monocyte% 6.4 % (0-10); NRBC Flagged by Analyzer 0 % (0-5); Neutrophil # 3.42 X10^3/uL (2.7-7.7); Neutrophil % 66.8 % (47-70); Platelet Count 110 K/mm3 (150-450); RBC Distribution Width CV 14.5 % (11.6-14.6); RBC Distribution Width SD 48.9 fl (35.1-43.9); Red Blood Count 4.36 M/mm3 (4.6-6.2); White Blood Count 5.1 K/mm3 (4.4-11.0)
[2024-10-19 10:57] LABS: Anion Gap 14 (5-15); BUN 15 mg/dL (4-19); BUN/Creat Ratio 9.4 RATIO (10-20); Calcium,Total 8.8 mg/dL (7.6-11.0); Chloride 100 mmol/L (98-108); EST Glomerular Filtration Rate 45 (>60); Estimated Creatinine Clearance 53.64 ml/min (50-250); Glucose 171 mg/dL (70-99); Potassium 3.8 mmol/L (3.3-5.1); Sodium Level 137 mmol/L (133-145)
--- NOTE | 2024-10-19 10:58 | CASEMGMT ---
SUKHI called patient's Ariadna and let her know [facility] has accepted patient and will submit everything to insurance. Ariadna thanked SUKHI for the update. Plan: d/c to [facility] pending insurance approval. Lilly DEJESUS
[2024-10-19 11:05] VITALS: BP 155/69; PULSE 80; RESP 18; TEMP 36.6; O2SAT 97
[2024-10-19] MEDS: Insulin Lispro 100 UNIT/ML INSULN.PEN SC (12:02)
[2024-10-19 12:31] LABS: Bedside Glucose 160 mg/dL (74-106)
--- NOTE | 2024-10-19 14:31 | CASEMGMT ---
RN informed SUKHI that patient's is at [facility] and she would like to take patient home. SUKHI went back to patient's room and spoke with patient's Ariadna. Ariadna confirmed she would like to take patient home. Ariadna stated she normally helps patient all the time and she is with him all the time. Ariadna declined home health. Patient's casework manager with [facility] is Akilah. SUKHI notified physician. Lilly DEJESUS
--- NOTE | 2024-10-19 14:41 | CASEMGMT ---
Addendum entered by Lilly Henriquez 10/19/24 14:48: SW notified [facility] to cancel pre-cert as patient is now going home. Plan: d/c home. Lilly DEJESUS Original Note: Physician spoke with patient's Ariadna and she confirms she wants to take patient home. SW will have [facility] cancel pre-cert. SUKHI called Domanjum with [facility] and left her a voice mail letting her know plan is now d/c home with no home health. Lilly DEJESUS
--- NOTE | 2024-10-19 15:13 | DCINST_ITS ---
Discharge Instructions DC O2, CPAP, BIPAP needs Home O2 Discharge instructions: No Dressing / Incision Discharge Activity: - (Increase activity as tolerated) Follow Up Care Test Results: Test results from this visit will be discussed in further detail at your follow- up appointment, if applicable. Discharge Plan Admission Admit Date/Time: 10/13/24 23:44 Primary Reason for Your Visit: Altered mental status Attending Provider: Jocelyn Polk Primary Care Provider: ABHISHEK ST Consulting Providers: Bisi Rivera; John Rod Instructions Patient Instructions: ED Fall Prevention Additional Instructions / Restrictions: DISCHARGE INSTRUCTIONS PLEASE READ *Please take this with you to your next doctors appointment* -As discussed your gabapentin has been decreased to 400 mg 3 times a day to help minimize sedation - your Seroquel was also decreased to 25 mg daily to help minimize sedation -You have also done well on tramadol three times daily, you would benefit from continuing this dosing until following up with your outpatient prescribing physician for further evaluation and instruction - due to constipation you will be given a prescription for Dulcolax to take twice daily -Please call your primary care provider's office upon discharge to schedule a hospital follow up within 1 week. -For any concerning signs or symptoms please call 911 or proceed to the nearest emergency department Discharge Orders/Prescriptions Prescriptions: New docusate sodium 100 mg Capsule 200 mg PO BID 10 Days Qty: 40 0RF Continued allopurinol 100 MG tablet 100 mg PO DAILYCM Centrum Silver 1 EACH tablet 1 ea PO DAILY insulin glargine [Basaglar KwikPen U-100 Insulin] 100 unit/mL (3 mL) insulin pen 75 unit subcut QPM tamsulosin 0.4 mg capsule 0.4 mg PO DAILY donepezil 10 mg tablet 10 mg PO QHS Trulicity 3 mg/0.5 mL pen injector 3 mg subcut QWEEK duloxetine 60 mg capsule,delayed release(DR/EC) 60 mg PO DAILY lisinopril 2.5 mg tablet 2.5 mg PO DAILY pramipexole 0.125 mg tablet 0.125 mg PO BID ezetimibe 10 mg tablet 10 mg PO DAILY glipizide 10 mg tablet extended release 24hr 10 mg PO DAILY Jardiance 25 mg tablet 25 mg PO DAILY levothyroxine 50 mcg tablet 50 mcg PO DAILY trazodone 50 mg Tablet 50 mg PO QHS Qty: 0 0RF Rx Instructions: Home medication. trazodone 50 mg Tablet 50 mg PO DAILY@1700 Qty: 0 0RF Rx Instructions: Home medication. Changed tramadol 50 mg tablet 50 mg PO Q8H PRN (Reason: pain) Qty: 30 0RF gabapentin 800 MG tablet 400 mg PO TIDCM Qty: 45 0RF quetiapine 50 mg tablet 25 mg PO DAILY 30 Days Qty: 30 0RF Discontinued tizanidine 2 mg Tablet 4 mg PO QPM PRN (Reason: muscle spasms) Qty: 0 0RF cefdinir 300 mg capsule 300 mg PO BID 4 Days Qty: 8 0RF Referrals / Follow Up: ABHISHEK ST CRNP [Primary Care Provider] - Within 1 Week Disposition Disposition (needs filled in before D/C Order can be placed): Home, Self Care
--- NOTE | 2024-10-19 15:29 | PCM.DC.SUM ---
Providers Date of Admission: 10/13/24 Date of Discharge: 10/19/24 Primary Care Physician: MELY DUARTE Reason For Visit: Altered mental status Diagnosis Discharge Diagnosis (1) Physical debility: Status: Acute Code(s): R53.81 - Other malaise (2) Acute encephalopathy: Status: Acute Code(s): G93.40 - Encephalopathy, unspecified Plan #Acute encephalopathy- suspect toxic encephalopathy #Physical debility #Morbid obesity # Hypothyroidism # Dementia # CKD Medications at Discharge Home Medications allopurinol 100 mg tablet 100 mg PO DAILYCM gout 05/03/13 bvhwnlpm-yzj-orbtx acid 0.4 mg-lycopene 300 mcg-lutein 250 mcg tablet (Centrum Silver) 1 ea PO DAILY vitamin 05/03/13 donepezil 10 mg tablet 10 mg PO QHS dementia 03/18/24 dulaglutide 3 mg/0.5 mL subcutaneous pen injector (Trulicity) 3 mg subcut QWEEK diabetes 03/18/24 duloxetine 60 mg capsule,delayed release 60 mg PO DAILY depression 03/18/24 empagliflozin 25 mg tablet (Jardiance) 25 mg PO DAILY diabetes 03/18/24 ezetimibe 10 mg tablet 10 mg PO DAILY cholesterol 03/18/24 glipizide 10 mg tablet, extended release 24 hr 10 mg PO DAILY diabetes 03/18/24 levothyroxine 50 mcg tablet 50 mcg PO DAILY thyroid 03/18/24 lisinopril 2.5 mg tablet 2.5 mg PO DAILY blood pressure 03/18/24 pramipexole 0.125 mg tablet 0.125 mg PO BID parkinsons 03/18/24 trazodone 50 mg tablet 50 mg PO DAILY@1700 #0 tabs 08/23/24 trazodone 50 mg tablet 50 mg PO QHS #0 tabs 08/23/24 insulin glargine 100 unit/mL (3 mL) subcutaneous pen (Basaglar KwikPen U-100 Insulin) 75 unit subcut QPM diabetes 10/13/24 tamsulosin 0.4 mg capsule 0.4 mg PO DAILY urine flow 10/15/24 docusate sodium 100 mg capsule 200 mg (2 x 100 mg) PO BID 10 days #40 caps 10/19/24 gabapentin 800 mg tablet 400 mg (1/2 x 800 mg) PO TIDCM nerve pain #45 tabs 10/19/24 quetiapine 50 mg tablet 25 mg (1/2 x 50 mg) PO DAILY mental health 30 days #30 tabs 10/19/24 tramadol 50 mg tablet 50 mg PO Q8H PRN pain #30 tabs 10/19/24 Hospital Course Summary of Care Provided Minutes Spent on Discharge: 25 Hospital Course: 74-year-old male with history of CKD, dementia, gout, diabetes, neuropathy, hypertension who presented to [facility] ED due to altered mental status. Patient reportedly had been recently diagnosed with a UTI and was placed on outpatient Cipro and there was report of possible fever and there is off of that improved with Cipro but had secondary worsening of mental status and hallucinations as well as generalized weakness so she came to the ED. Hospitalist contacted for admission. Provider who was previously providing care noted low colony counts of Pseudomonas and did not think that patient had true infection, antibiotics were discontinued during admission. Mental status did improve but I suspect his altered mental status was toxic encephalopathy and some of this was medication related as patient had improvement with decrease in Seroquel and decreasing gabapentin as well as discontinuing Cipro.it is very possible patient may have also had secondary worsening of mental status after he was started on Cipro as this can sometimes cause neuropsychiatric side effects including confusion. Patient's repeat UA at our institution showed yeast but no bacterial growth and blood cultures were no growth to date. Initial plan was for SNF however reported that patient seemed to be at baseline and did not think that SNF would benefit him given he is at baseline, given overall medical and vital stability it does seem reasonable for patient to discharge home with , patient and are agreeable and patient has no new or acute complaints on the day of discharge. He is unsure if he has had a bowel movement but has no abdominal pain and no present nausea and instruction to take to [place] twice daily on discharge. Patient discharged home with in stable condition, discharge directions as follows: -As discussed your gabapentin has been decreased to 400 mg 3 times a day to help minimize sedation - your Seroquel was also decreased to 25 mg daily to help minimize sedation -You have also done well on tramadol three times daily, you would benefit from continuing this dosing until following up with your outpatient prescribing physician for further evaluation and instruction - due to constipation you will be given a prescription for Dulcolax to take twice daily -Please call your primary care provider's office upon discharge to schedule a hospital follow up within 1 week. -For any concerning signs or symptoms please call 911 or proceed to the nearest emergency department Physical Exam Narrative General: Alert, no apparent distress HEENT: Atraumatic, normocephalic Eyes: Anicteric, normal conjunctiva, extraocular movements grossly intact Neck: Supple Respiratory: Somewhat diminished at the bases bilaterally but suspect this in part due to body habitus, normal respiratory effort Cardiovascular: Regular rate and rhythm GI: Soft, nontender, nondistended Extremities: No significant pitting edema Musculoskeletal: Moving all extremities Neuro: No overt focal neurological deficits Skin: No rashes appreciated Psych: Cooperative Weight / BMI Weight Weight: 131.6 kg Body Mass Index (BMI) 42.8 ABG / Lab / Microbiology Data 10/19/24 10:07 10/19/24 10:07 Laboratory: Laboratory Results - last 24 hr 10/18/24 22:37: POC Glucose 144 H 10/19/24 06:29: POC Glucose 140 H 10/19/24 10:07: WBC 5.1, RBC 4.36 L, Hgb 13.3, Hct 39.9 L, MCV 91.5, MCH 30.5, MCHC 33.3, RDW Std Deviation 48.9 H, RDW Coeff of Veronica 14.5, Plt Count 110 L, MPV 8.8, Immature Gran % (Auto) 1.000 H, Neut % (Auto) 66.8, Lymph % (Auto) 22.7, [place] % (Auto) 6.4, Eos % (Auto) 2.3, Baso % (Auto) 0.8, Absolute Neuts (auto) 3.4, Absolute Lymphs (auto) 1.16, Nucleated RBC % 0, Sodium 137, Potassium 3.8, Chloride 100, Carbon Dioxide 23.0, Anion Gap 14, BUN 15, Creatinine 1.60 H, Estim Creat Clear Calc 53.64, Est GFR (MDRD) Non-Af 45 L, BUN/Creatinine Ratio 9.4 L, Glucose 171 H, Calcium 8.8 10/19/24 12:00: POC Glucose 160 H Microbiology: Microbiology 10/13/24 22:00 Blood Culture (Wb) - Anticubital Left Blood Culture - Final No growth in 5 days. 10/13/24 22:00 Blood Culture (Wb) - Left Wrist Blood Culture - Final No growth in 5 days. 10/13/24 20:30 Urine, Clean Catch Urine Culture - Final Yeast, not Callie albicans D/C Instructions DC O2, CPAP, BIPAP Needs Home O2 Discharge instructions: No Meaningful Use Info Meaningful Use Meaningful Use Diagnoses (Choose all that apply): None applicable Ischemic Stroke Statin Dosing Therapy Reference: STATIN DOSE THERAPY REFERENCE: * Patients > 75 years receive moderate or high dose statin therapy. * Patients 75 years or YOUNGER should receive HIGH intensity statin dose unless contraindicated. You will be required to document reason for non-treatment if statin daily dose does not meet guidelines. HIGH DOSE STATIN THERAPY DAILY Atorvastatin > than or = to 40 mg Rosuvastatin > than or = to 20 mg Amlodipine + Atorvastatin > than or = to 2.5/40 mg Ezetimibe + Simvastatin 10/80 mg Simvastatin 80mg Discharge Plan Admission Admit Date/Time: 10/13/24 23:44 Primary Reason for Your Visit: Altered mental status Attending Provider: Jocelyn Polk Primary Care Provider: ABHISHEK ST Consulting Providers: Bisi Rivera; Jonh Rod Instructions Patient Instructions: ED Fall Prevention Additional Instructions / Restrictions: DISCHARGE INSTRUCTIONS PLEASE READ *Please take this with you to your next doctors appointment* -As discussed your gabapentin has been decreased to 400 mg 3 times a day to help minimize sedation - your Seroquel was also decreased to 25 mg daily to help minimize sedation -You have also done well on tramadol three times daily, you would benefit from continuing this dosing until following up with your outpatient prescribing physician for further evaluation and instruction - due to constipation you will be given a prescription for Dulcolax to take twice daily -Please call your primary care provider's office upon discharge to schedule a hospital follow up within 1 week. -For any concerning signs or symptoms please call 911 or proceed to the nearest emergency department Discharge Orders/Prescriptions Prescriptions: New docusate sodium 100 mg Capsule 200 mg PO BID 10 Days Qty: 40 0RF Continued allopurinol 100 MG tablet 100 mg PO DAILYCM Centrum Silver 1 EACH tablet 1 ea PO DAILY insulin glargine [Basaglar KwikPen U-100 Insulin] 100 unit/mL (3 mL) insulin pen 75 unit subcut QPM tamsulosin 0.4 mg capsule 0.4 mg PO DAILY donepezil 10 mg tablet 10 mg PO QHS Trulicity 3 mg/0.5 mL pen injector 3 mg subcut QWEEK duloxetine 60 mg capsule,delayed release(DR/EC) 60 mg PO DAILY lisinopril 2.5 mg tablet 2.5 mg PO DAILY pramipexole 0.125 mg tablet 0.125 mg PO BID ezetimibe 10 mg tablet 10 mg PO DAILY glipizide 10 mg tablet extended release 24hr 10 mg PO DAILY Jardiance 25 mg tablet 25 mg PO DAILY levothyroxine 50 mcg tablet 50 mcg PO DAILY trazodone 50 mg Tablet 50 mg PO QHS Qty: 0 0RF Rx Instructions: Home medication. trazodone 50 mg Tablet 50 mg PO DAILY@1700 Qty: 0 0RF Rx Instructions: Home medication. Changed tramadol 50 mg tablet 50 mg PO Q8H PRN (Reason: pain) Qty: 30 0RF gabapentin 800 MG tablet 400 mg PO TIDCM Qty: 45 0RF quetiapine 50 mg tablet 25 mg PO DAILY 30 Days Qty: 30 0RF Discontinued tizanidine 2 mg Tablet 4 mg PO QPM PRN (Reason: muscle spasms) Qty: 0 0RF cefdinir 300 mg capsule 300 mg PO BID 4 Days Qty: 8 0RF Referrals / Follow Up: ABHISHEK ST CRNP [Primary Care Provider] - Within 1 Week (Please call [phone] to schedule your in home appointment. ) Disposition Disposition (needs filled in before D/C Order can be placed): Home, Self Care Charges/Coding Visit Charges Inpatient E&M: 41836 Disch Hosp
[2024-10-19 15:31] VITALS: BP 155/69; PULSE 80; RESP 18; TEMP 36.6; O2SAT 97
== END 2024-10-19 16:38 | disposition home or self-care (01) | DRG 92 ==
LOC: ED 23:54 → PCU 10-14 00:21
PROVIDERS: Internal Medicine; Admitting Provider Internal Medicine; Emergency Provider Surgery; PCP Nurse Practitioner Family; Visit Provider Internal Medicine
DX: G92.8 Other toxic encephalopathy (principal); E87.20 Acidosis, unspecified; Z68.42 Body mass index [BMI] 45.0-49.9, adult; D69.6 Thrombocytopenia, unspecified; B96.5 Pseudomonas (aeruginosa) (mallei) (pseudomallei) as the cause of diseases classified elsewhere; E86.0 Dehydration; Z66 Do not resuscitate; N18.32 Chronic kidney disease, stage 3b; F03.90 Unspecified dementia, unspecified severity, without behavioral disturbance, psychotic disturbance, mood disturbance, and anxiety; G25.81 Restless legs syndrome; E11.65 Type 2 diabetes mellitus with hyperglycemia; I12.9 Hypertensive chronic kidney disease with stage 1 through stage 4 chronic kidney disease, or unspecified chronic kidney disease; E03.9 Hypothyroidism, unspecified; F32.A Depression, unspecified; E11.22 Type 2 diabetes mellitus with diabetic chronic kidney disease; E78.5 Hyperlipidemia, unspecified; E11.40 Type 2 diabetes mellitus with diabetic neuropathy, unspecified; Z79.4 Long term (current) use of insulin; I87.2 Venous insufficiency (chronic) (peripheral); M10.9 Gout, unspecified; E66.01 Morbid (severe) obesity due to excess calories; T43.595A Adverse effect of other antipsychotics and neuroleptics, initial encounter; T36.8X5A Adverse effect of other systemic antibiotics, initial encounter; R53.81 Other malaise; G47.00 Insomnia, unspecified; G89.29 Other chronic pain; R79.89 Other specified abnormal findings of blood chemistry; N32.89 Other specified disorders of bladder; E66.813 Obesity, class 3; R82.71 Bacteriuria; Z79.84 Long term (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 of oral hypoglycemic drugs; Z79.85 Long-term (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 of injectable non-insulin antidiabetic drugs; Z79.890 Hormone replacement therapy; Z79.899 Other long term (current) drug therapy
CPT/HCPCS: 36415; 74176; 80048; 80053; 81001; 82962; 83605; 83735; 84100; 85025; 87040; 87086; 87088; 97116; 97162; 97166; 97530; 97535; 99285; J2185; A4216; J2405

== ENCOUNTER 2025-01-06 18:13 | Inpatient (IN) | payer MEDICARE, MEDICAID, SELFPAY ==
[2025-01-06] VITALS (8 sets, daily range): BP systolic 105–146; BP diastolic 64–90; PULSE 83–89; RESP 12–18; TEMP 36.6–36.8; O2SAT 96–100; BMI 43.3; BMI 42.3
--- NOTE | 2025-01-06 18:18 | ED.RN ---
ems states pts is concerned he could have another uti. pt is prophylactically on abx for recurrent uti's. pt is talking to animals and people not in the room. this nurse did not witness this. pt denies any pain but does have dementia. a&o to self and place
--- NOTE | 2025-01-06 18:58 | EDS_ITS ---
HPI History of Present Illness Chief Complaint: Confusion Narrative Narrative: 74-year-old male past medical history of Parkinson's, frequent UTIs, dementia presents via EMS with altered level of consciousness/mental status change reported by his . Per EMS, patient has been hallucinating and seeing people and animals that are not present. He denies any fevers or chills, no cough or difficulty breathing. He did state that he has been having heartburn over the last few days. No exacerbating or alleviating factors. [facility] Medical History CKD (chronic kidney disease), stage III Insulin dependent diabetes mellitus Dementia Kidney disease Gout Dementia Diabetes HTN (hypertension) Home Medications ?Medication ?Instructions ?Recorded ?Last Taken ?Type allopurinol 100 mg tablet 100 mg PO DAILYCM gout 05/03 Unknown History gbfbdsgb-qqk-riwda acid 0.4 1 ea PO DAILY vitamin 04/05 05/16 Unknown History mg-lycopene 300 mcg-lutein 250 mcg tablet (Centrum Silver) donepezil 10 mg tablet 10 mg PO QHS dementia Unknown History dulaglutide 3 mg/0.5 mL 3 mg subcut QWEEK diabetes 1 05/18/23 Unknown History subcutaneous pen injector (Trulicity) duloxetine 60 mg capsule,delayed 60 mg PO DAILY depres francis 03/18/24 Unknown History release empagliflozin 25 mg tablet 25 mg PO DAILY diabetes Unknown History (Jardiance) ezetimibe 10 mg tablet 10 mg PO DAILY cholesterol 1 05/18/23 Unknown History glipizide 10 mg tablet, extended 10 mg PO DAILY diabet es 03/18/24 Unknown History release 24 hr levothyroxine 50 mcg tablet 50 mcg PO DAILY thyroid Unknown History lisinopril 2.5 mg tablet 2.5 mg PO DAILY blood pressu re 03/18/24 Unknown History pramipexole 0.125 mg tablet 0.125 mg PO BID parkinsons 03/18/24 Unknown History trazodone 50 mg tablet 50 mg PO DAILY@1700 #0 tabs 08/23/24 Unknown Rx trazodone 50 mg tablet 50 mg PO QHS #0 tabs 5 Unknown Rx insulin glargine 100 unit/mL (3 75 unit subcut QPM gerard genny 10/13/24 Unknown History mL) subcutaneous pen (Basaglar KwikPen U-100 Insulin) tamsulosin 0.4 mg capsule 0.4 mg PO DAILY urine flow 0 10/15/24 Unknown History docusate sodium 100 mg capsule 200 mg (2 x 100 mg) PO BID 10 days 10/19/24 Unknown Rx #40 caps gabapentin 800 mg tablet 400 mg (1/2 x 800 mg) PO TID CM 10/19/24 Unknown Rx nerve pain #45 tabs quetiapine 50 mg tablet 25 mg (1/2 x 50 mg) PO DAILY 10/19/24 Unknown Rx mental health 30 days #30 tabs cephalexin 250 mg capsule 250 mg PO DAILY 01/06/25 Unk nown History tramadol 50 mg tablet 50 mg PO TID pain 01/06/25 U nknown History Allergy/AdvReac Type Severity Reaction Status Date / Time ibuprofen AdvReac Abd Verified 01/06/25 18:17 cramps/diarrhea Surgical History History of left shoulder replacement H/O knee surgery Social History household members: spouse housing: house current occupational status: retired Smoking Status: Never smoker alcohol intake: never substance use type: does not use ROS ROS ED ROS Narrative Review of systems slightly limited secondary to dementia. States has had heartburn, denies headache, fevers, chills, cough, no recent nausea or vomiting, no dysuria, no other symptoms. EXAM Physical Exam Narrative Exam Narrative: Afebrile. Vital signs noted. Nontoxic-appearing. Cardiovascular examination reveals regular rate and rhythm. Lungs are clear to auscultation bilaterally. Abdomen is soft and nontender without guarding or rebound. Patient awake, alert, oriented to person, place, and year. Initially said [place] was president but then corrected self. Chronic lymphedema skin changes bilateral lower extremities. Able to wiggle toes bilaterally. Const Vital Signs: 01/06/25 18:14 01/06/25 19:16 01/06/25 20:00 Temperature 98.3 F 98.3 F 98.0 F Temperature Source Oral Oral Oral Pulse Rate 86 87 89 Respiratory Rate 16 18 17 Blood Pressure 146/90 H 121/74 H 125/66 H Blood Pressure Mean 108 89 85 Pulse Ox 96 99 99 Oxygen Delivery Method Room Air Room Air Room Air 01/06/25 21:00 01/06/25 22:00 01/06/25 22:00 Temperature 98.0 F 98.0 F Temperature Source Oral Oral Pulse Rate 86 84 85 Respiratory Rate 16 16 12 Blood Pressure 115/68 125/65 H 125/65 H Blood Pressure Mean 83 85 85 Pulse Ox 98 97 98 Oxygen Delivery Method Room Air Room Air Room Air 01/06/25 22:47 Temperature 98.0 F Temperature Source Pulse Rate 84 Respiratory Rate 15 Blood Pressure 105/64 Blood Pressure Mean 77 Pulse Ox 100 Oxygen Delivery Method MDM MDM MDM Narrative Medical decision making narrative: Differential diagnosis includes but not limited to ongoing dementia with hallucinations versus dehydration versus other electrolyte abnormality versus UTI versus occult pneumonia. History and physical does not support pneumonia. Comprehensive workup was pursued. I reviewed his prior problem list and he has had encephalopathy in the past. Comprehensive workup was pursued. I reviewed his laboratory work and he has a normal white count of 8.1 with hemoglobin normal at 14.1, hematocrit 42.2, platelet count low at 122. When compared to prior labs he has a chronic thrombocytopenia. I do not feel he needs a platelet transfusion. Electrolyte panel is significant for BUN of 21 and creatinine 1.62. When compared to prior labs he has been this high with his creatinine at 1.6 previously. Glucose of 156 I doubt he has hypoglycemia as a cause of his mental status change. Anion gap normal at 12. Sodium and potassium are normal. Ammonia level is low at 12.8 so I do not feel he has hepatic encephalopathy. Urinalysis does show 25-50 WBCs with RBCs and 3+ yeast with 1+ bacteria. I reviewed his prior urine cultures and he has had yeast that is not Callie albicans in the past. I sent a urine culture again as he has 1+ bacteria and treated him with Rocephin 1 g intravenously as his is at the bedside currently and states that he has physical debility and is unable to ambulate and would like him admitted at least for observation for PT OT eval and possible rehab placement. I discussed patient with Dr. Ute Hancock as well as social work. Disposition is admitted in stable condition. History & Record Review Discussion w/independent historian: EMS personnel and Patient Additional record(s) reviewed:: Prior labs Lab Data Attestation: I reviewed the patient's lab results. Labs: Laboratory Results - last 24 hr 01/06/25 01/06/25 01/06/25 17:45 18:31 19:55 WBC 8.1 RBC 4.62 Hgb 14.1 Hct 42.2 MCV 91.3 MCH 30.5 MCHC 33.4 RDW Std Deviation 49.8 H RDW Coeff of Veronica 15.0 H Plt Count 122 L MPV 9.6 Immature Gran % (Auto) 0.900 Neut % (Auto) 69.5 Lymph % (Auto) 20.3 [place] % (Auto) 5.7 Eos % (Auto) 2.9 Baso % (Auto) 0.7 Absolute Neuts (auto) 5.6 Absolute Lymphs (auto) 1.64 Nucleated RBC % 0 Sodium 135 Potassium 4.4 Chloride 100 Carbon Dioxide 23.6 Anion Gap 12 BUN 21 H Creatinine 1.62 H Estim Creat Clear Calc 53.33 Est GFR (MDRD) Non-Af 44 L BUN/Creatinine Ratio 12.9 Glucose 156 H Calcium 9.6 Total Bilirubin 0.56 AST 20 ALT 18 Alkaline Phosphatase 84 Ammonia 12.8 L Total Protein 7.8 Albumin 3.8 Globulin 4.0 Albumin/Globulin Ratio 1.0 Urine Color Straw Urine Clarity Cloudy Urine pH 6.0 Ur Specific [place] 1.015 Urine Protein 30 H Urine Glucose (UA) 1000 H Urine Ketones Negative Urine Occult Blood 250 H Urine Nitrite Negative Urine Bilirubin Negative Urine Urobilinogen Normal Ur Leukocyte Esterase 500 H Urine RBC 10-25 SEEN Urine WBC 25-50 SEEN Ur Squamous Epith Cells 0-5 SEEN Urine Bacteria 1+ Urine Mucus 0 SEEN Urine Yeast 3+ Radiography Chest X-Ray - ED: 1 View, Read by ED Physician, Read by Radiologist and No Acute Disease Diagnostic Testing: Clinical Impression(s) from Imaging Studies Brain CT 01/06/25 19:15 IMPRESSION: 1. No intracranial hemorrhage. No mass effect or midline shift. 2. Chronic involutional and ischemic gliotic white matter changes. Reading Location: [facility] Chest X-Ray 01/06/25 19:20 IMPRESSION: No Acute Findings. Reading Location: [facility] Management Discussion w/another healthcare provider: Hospitalist (Dr. Ute Hancock) and workers compensation examiner/Case management Discharge Plan Triage Chief Complaint: Confusion ED Provider: Gene Monroy Dx/Rx/DC Orders Clinical Impression: Visual hallucinations, Dementia Primary Care Provider: ABHISHEK ST
[2025-01-06 19:08] LABS: Hematocrit 42.2 % (40-54); Hemoglobin 14.1 g/dL (13.0-16.5); Immature Granulocytes Count 0.070 X10^3/uL (0.0-0.0); Mean Corp Hgb Conc 33.4 g/dL (32-36); Mean Corpuscular Volume 91.3 fL (80-94); Mean Platelet Vol. 9.6 fl (6.2-12.0); NRBC Flagged by Analyzer 0 % (0-5); Platelet Count 122 K/mm3 (150-450); RBC Distribution Width CV 15.0 % (11.6-14.6); RBC Distribution Width SD 49.8 fl (35.1-43.9); Red Blood Count 4.62 M/mm3 (4.6-6.2); White Blood Count 8.1 K/mm3 (4.4-11.0)
[2025-01-06] MEDS: 0.9% Normal Saline (1000mL) 1,000 ML 999 ML IV (19:10)
--- NOTE | 2025-01-06 19:15 | CT_ITS ---
PROCEDURE: BRAIN/HEAD WITHOUT CONTRAST 01/06/2025 REASON FOR EXAM: CHANGE IN MENTAL STATUS TECHNIQUE: Procedure Code: CTBR Modality: CT Procedure: BRAIN/HEAD WITHOUT CONTRAST Coronal and Sagittal reconstruction series were provided. One or more dose reduction techniques were used (e.g., Automated exposure control, adjustment of the mA and/or kV according to patient size, use of iterative reconstruction technique. COMPARISON: None available. FINDINGS: There is no extra-axial or intra-axial intracranial hemorrhage. No mass effect or midline shift is seen. Generalized intracranial volume loss and findings compatible with chronic microvascular white matter ischemia. There is normal kelley-white matter differentiation. The posterior fossa is grossly unremarkable. The skull is unremarkable. Visualized paranasal sinuses are clear. The mastoid air cells show normal translucency. CT/Brain/Head without Contrast IMPRESSION: 1. No intracranial hemorrhage. No mass effect or midline shift. 2. Chronic involutional and ischemic gliotic white matter changes. Reading Location: [facility]
--- NOTE | 2025-01-06 19:20 | RAD_ITS ---
PROCEDURE: CHEST 1 VIEW (PORTABLE) 01/06/2025 REASON FOR EXAM: COUGH TECHNIQUE: Frontal view of the chest. COMPARISON: CT angio chest 08/20/2024 FINDINGS: Hardware: None. Heart: The heart size is normal. Lungs: The lungs are clear. Bones: The bones are unremarkable. Other: Left shoulder arthroplasty. Cervical spine fixation hardware. RAD/Chest 1 View (Portable) IMPRESSION: No Acute Findings. Reading Location: [facility]
[2025-01-06 19:29] LABS: AST(SGOT) 20 U/L (<=37); Alanine Aminotransfer ALT/SGPT 18 U/L (<=46); Albumin, Serum 3.8 g/dL (3.4-4.8); Alkaline Phosphatase 84 U/L (40-129); Anion Gap 12 (5-15); BUN 21 mg/dL (4-19); BUN/Creat Ratio 12.9 RATIO (10-20); Calcium,Total 9.6 mg/dL (7.6-11.0); Carbon Dioxide 23.6 mmol/L (21.0-32.0); Chloride 100 mmol/L (98-108); Estimated Creatinine Clearance 53.33 ml/min (50-250); Globulin 4.0 g/dL (2.2-4.2); Glucose 156 mg/dL (70-99); Potassium 4.4 mmol/L (3.3-5.1)
[2025-01-06 20:02] LABS: Mucous, Urine 0 SEEN /hpf (<or=2+)
[2025-01-06 20:04] LABS: Color, Urine Straw (Yellow); Glucose, Dipstick 1000 mg/dl (Normal); Ketone-Dipstick Negative (Negative); Leukocyte Esterase-Dipstick 500 /ul (Negative); Nitrite-Dipstick Negative (Negative); Occult Blood-Urine 250 /ul (Negative); Protein-Dipstick 30 mg/dl (Negative); Specific Gravity, Urine 1.015 (1.002-1.030); Urine Bilirubin Dipstick Negative (Negative)
[2025-01-06 20:31] LABS: Ammonia 12.8 umol/L (16-60)
[2025-01-06 21:16] LABS: Yeast-Urine 3+ /hpf (None Seen)
[2025-01-06 21:17] LABS: Red Blood Cells-Urine 10-25 SEEN /hpf (0-5)
[2025-01-06 21:18] LABS: Squamous Epithelial Cells - UA 0-5 SEEN /hpf (0-5)
--- NOTE | 2025-01-06 22:33 | CASEMGMT ---
Social Work SW met with patient, and daughter. Patient and state that patient is having a hard time ambulating at this time and would like evaluated for a rehab stay. states that [facility]. No further needs identified at this time. Vaishali Rodriguez, CENTER CUSTOMER SERVICE ASSOCIATE, OFFICE CORRESPONDENT
--- NOTE | 2025-01-06 22:37 | PCM.HP.STD ---
HPI - General General Date of Admission: 01/06/25 Date of Service: 01/06/25 Chief Complaint: Weakness, confusion, debility. HPI Narrative The patient is a 74 y/o M w/ PMHx: Hypothyroidism, Anxiety and Depression/Mood disorder, BPH with obstructive pathology, Morbid obesity, Chronic thrombocytopenia, CKD stage III unclear subtype per GFR trending, IDDM, Parkinson disease with associated dementia unclear exact extent with unclear behavioral disturbance history, Gout, HTN, HLD who presents to the [facility] ED on 01/06/25 with history of mental status changes, hallucinating, seeing animals and people not present with history of similar symptoms with acute urinary tract infections with no fever or chills but given pattern and concern patient was brought in from home per his . Patient does report that he is near chronic bedbound and she does have home health come in and help with him. He is not extremely active at all baseline she notes. Workup in the ED included T98.3, heart rate 86, BP 146/90, respiratory rate 16, 96% on room air, CBC with WC 8.1, hemoglobin 14.1, platelet 122 without marked shift, CMP with BUN/Cr 21/1.62, GFR 44, glucose 156, hepatic profile unremarkable, chest x-ray with no acute cardiopulmonary findings, CT brain with no acute intracranial hemorrhage, mass effect or midline shift with chronic involutional and ischemic gliotic white matter changes, urinalysis with specific gravity 1.015, protein 30, glucose of thousand, occult blood 250, negative nitrite, leukocyte esterase 500 with 25-50 urine WBCs with 1+ urine bacteria, urine culture pending per ED. In the ED patient administered 1 L normal saline and initially trialed with oral Keflex 500 mg p.o. x 1 given possibility initially for discharge however given debility and weakness decision for admission. [facility] Medical History CKD (chronic kidney disease), stage III Insulin dependent diabetes mellitus Dementia Kidney disease Gout Dementia Diabetes HTN (hypertension) Home Medications ?Medication ?Instructions ?Recorded ?Last Taken ?Type allopurinol 100 mg tablet 100 mg PO DAILYCM gout 05/03/13 Unknown History stpsntzv-bia-tcfgt acid 0.4 1 ea PO DAILY vitamin 05/03/13 Unknown History mg-lycopene 300 mcg-lutein 250 mcg tablet (Centrum Silver) donepezil 10 mg tablet 10 mg PO QHS dementia 03/18/24 Unknown History dulaglutide 3 mg/0.5 mL 3 mg subcut QWEEK diabetes 03/18/24 Unknown History subcutaneous pen injector (Trulicity) duloxetine 60 mg capsule,delayed 60 mg PO DAILY depression 03/18/24 Unknown History release empagliflozin 25 mg tablet 25 mg PO DAILY diabetes 03/18/24 Unknown History (Jardiance) ezetimibe 10 mg tablet 10 mg PO DAILY cholesterol 03/18/24 Unknown History glipizide 10 mg tablet, extended 10 mg PO DAILY diabetes 03/18/24 Unknown History release 24 hr levothyroxine 50 mcg tablet 50 mcg PO DAILY thyroid 03/18/24 Unknown History lisinopril 2.5 mg tablet 2.5 mg PO DAILY blood pressure 03/18/24 Unknown History pramipexole 0.125 mg tablet 0.125 mg PO BID parkinsons 03/18/24 Unknown History trazodone 50 mg tablet 50 mg PO DAILY@1700 #0 tabs 08/23/24 Unknown Rx trazodone 50 mg tablet 50 mg PO QHS #0 tabs 08/23/24 Unknown Rx insulin glargine 100 unit/mL (3 75 unit subcut QPM diabetes 10/13/24 Unknown History mL) subcutaneous pen (Basaglar KwikPen U-100 Insulin) tamsulosin 0.4 mg capsule 0.4 mg PO DAILY urine flow 10/15/24 Unknown History docusate sodium 100 mg capsule 200 mg (2 x 100 mg) PO BID 10 days 10/19/24 Unknown Rx #40 caps gabapentin 800 mg tablet 400 mg (1/2 x 800 mg) PO TIDCM 10/19/24 Unknown Rx nerve pain #45 tabs quetiapine 50 mg tablet 25 mg (1/2 x 50 mg) PO DAILY 10/19/24 Unknown Rx mental health 30 days #30 tabs cephalexin 250 mg capsule 250 mg PO DAILY 01/06/25 Unknown History tramadol 50 mg tablet 50 mg PO TID pain 01/06/25 Unknown History Allergy/AdvReac Type Severity Reaction Status Date / Time ibuprofen AdvReac Abd Verified 01/06/25 18:17 cramps/diarrhea Family History (Updated 01/06/25 @ 23:[address] Ute Hancock MD) Mother CVA (cerebral vascular accident) Heart disease Father CVA (cerebral vascular accident) Heart disease Surgical History History of left shoulder replacement H/O knee surgery Social History household members: spouse housing: house current occupational status: retired Smoking Status: Never smoker alcohol intake: never substance use type: does not use ROS Review of Systems ROS Unobtainable: due to encephalopathy and due to mental condition Vital Signs Vital Signs Vital Signs: 01/06/25 18:14 01/06/25 19:16 01/06/25 20:00 Temperature 98.3 F 98.3 F 98.0 F Temperature Source Oral Oral Oral Pulse Rate 86 87 89 Respiratory Rate 16 18 17 Blood Pressure 146/90 H 121/74 H 125/66 H Blood Pressure Mean 108 89 85 Pulse Ox 96 99 99 Oxygen Delivery Method Room Air Room Air Room Air 01/06/25 21:00 01/06/25 22:00 Temperature 98.0 F Temperature Source Oral Pulse Rate 86 84 Respiratory Rate 16 16 Blood Pressure 115/68 125/65 H Blood Pressure Mean 83 85 Pulse Ox 98 97 Oxygen Delivery Method Room Air Room Air Weight Weight: 293 lb 10.491 oz Body Mass Index (BMI) 43.3 Physical Exam Narrative Physical Examination: General: Awake, alert, oriented to self, but confused above baseline with underlying dementia, speech normally garbled per report but may be potentially more so with significant fatigue, lethargy, currently no acute distress. Skin: Normal color, normal turgor, no icterus, no cyanosis except for occasional stage ecchymoses, abrasion, notable bilateral lower extremity venous stasis skin changes and does confirm that left calf is chronically larger than right calf. HEENT: AT/NC, EOMI, PERRLA, moderately dry MM, no obvious carotid bruit, difficult to discern JVD given thick neck. Lungs: Diminished, greater bases, no evidence of any distress, appropriate effort, no rales, ronchi or wheezing. Heart: Regular rate and rhythm; no gallop, rub audible. Abdomen: Soft, morbidly obese, NTTP, distant BS, no obvious distention or HSM, some discomfort with palpation of the suprapubic region/mild grimace. Extremities: No cyanosis, no clubbing, significant bilateral lower extremity pedal to proximal wade venous stasis skin changes, chronic left greater than right calf size confirmed per spouse. Neurological: Patient awake, alert, oriented as noted, cognitive function decreased from baseline and of note baseline is decreased and altered because of underlying dementia, pupils equally reactive to light and accommodation, cranial nerves grossly normal, moving all 4 extremities but notably limited in patient's spouse does report he is chronically near bedbound, strength severely globally decreased. Psychiatric: Affect appears flat, fatigued, lethargic, no acute evidence of depressive or anxiety feelings but does have underlying history. Results Lab / Micro Data 01/06/25 18:31 01/06/25 18:31 Labs: Laboratory Results - last 24 hr 01/06/25 17:45: Ammonia 12.8 L 01/06/25 18:31: WBC 8.1, RBC 4.62, Hgb 14.1, Hct 42.2, MCV 91.3, MCH 30.5, MCHC 33.4, RDW Std Deviation 49.8 H, RDW Coeff of Veronica 15.0 H, Plt Count 122 L, MPV 9.6, Immature Gran % (Auto) 0.900, Neut % (Auto) 69.5, Lymph % (Auto) 20.3, [place] % (Auto) 5.7, Eos % (Auto) 2.9, Baso % (Auto) 0.7, Absolute Neuts (auto) 5.6, Absolute Lymphs (auto) 1.64, Nucleated RBC % 0, Sodium 135, Potassium 4.4, Chloride 100, Carbon Dioxide 23.6, Anion Gap 12, BUN 21 H, Creatinine 1.62 H, Estim Creat Clear Calc 53.33, Est GFR (MDRD) Non-Af 44 L, BUN/Creatinine Ratio 12.9, Glucose 156 H, Calcium 9.6, Total Bilirubin 0.56, AST 20, ALT 18, Alkaline Phosphatase 84, Total Protein 7.8, Albumin 3.8, Globulin 4.0, Albumin/Globulin Ratio 1.0 01/06/25 19:55: Urine Color Straw, Urine Clarity Cloudy, Urine pH 6.0, Ur Specific [place] 1.015, Urine Protein 30 H, Urine Glucose (UA) 1000 H, Urine Ketones Negative, Urine Occult Blood 250 H, Urine Nitrite Negative, Urine Bilirubin Negative, Urine Urobilinogen Normal, Ur Leukocyte Esterase 500 H, Urine RBC 10-25 SEEN, Urine WBC 25-50 SEEN, Ur Squamous Epith Cells 0-5 SEEN, Urine Bacteria 1+, Urine Mucus 0 SEEN, Urine Yeast 3+ Imaging Radiology Impression Brain CT 01/06/25 19:15 IMPRESSION: 1. No intracranial hemorrhage. No mass effect or midline shift. 2. Chronic involutional and ischemic gliotic white matter changes. Reading Location: [facility] Chest X-Ray 01/06/25 19:20 IMPRESSION: No Acute Findings. Reading Location: [facility] Assessment & Plan Assessment/Plan (1) Acute encephalopathy: (2) UTI (urinary tract infection): PLAN: Plan The patient is a 74 y/o M w/ PMHx: Hypothyroidism, Anxiety and Depression/Mood disorder, BPH with obstructive pathology, Morbid obesity, Chronic thrombocytopenia, CKD stage III unclear subtype per GFR trending, IDDM, Parkinson disease with associated dementia unclear exact extent with unclear behavioral disturbance history, Gout, HTN, HLD who presents to the [facility] ED on 01/06/25 with history of mental status changes, hallucinating, seeing animals and people not present with history of similar symptoms with acute urinary tract infections with no fever or chills but given pattern and concern patient was brought in from home per his . #1. Debility, Adult FTT secondary to Acute Encephalopathy secondary to Acute Complicated Urinary Tract Infection: Will admit to [facility] upon ED evaluation remarkable, pending UCx, will judiciously hydrate, monitor I/Os, continue IV Rocephin w/ transition as able pending sensitivities and speciation. PT/OT/case medicine consult for discharge planning. #2. Chronic Kidney Disease Stage III, unclear subtype: Admission BUN/Cr 21/1.62, GFR 44, baseline renal function primarily 1.4-1.9, most recently 10/19/2024 creatinine 1.60, repeat BMP in AM. #3. Chronic thrombocytopenia, unclear exact etiology: Admission platelet 122, baseline [id number], stable, continue to trend. #4. Anxiety and Depression/Mood disorder: Will cautiously continue patient home Seroquel, trazodone, duloxetine home regimen with hold for sedation as needed. #5. IDDM with chronic neuropathy: Will hold oral home regimen, continue home insulin regimen, ADA diet, accu checks w/ ISS, cautiously continue home gabapentin regimen but hold for sedation as needed. #6. BPH with obstructive pathology: Will continue patient on Flomax regimen, monitor for obstruction. #7. Hypertension: Continue home regimen including lisinopril with hold parameters as needed, PRN hydralazine. #8. Parkinson disease with associated dementia unclear exact extent with unclear behavior disturbance history: Complicates presentation, maintain on fall precautions, will continue patient home pramipexole and donepezil home regimen, PT/OT/case management consulted for discharge planning. #9. Hypothyroidism: Will continue patient on levothyroxine regimen. #10. Hyperlipidemia: Will continue patient home ezetimibe home regimen, not on statin therapy per current list. #11. Morbid Obesity: Weight loss and lifestyle changes encouraged. #12. Gout: Will continue patient on allopurinol regimen. #13. DVT prophylaxis: Lovenox. #14. CODE status: Patient HCPOA is his who is present and living will is currently in place. Discussed CODE status at length including difference between FULL code, DNR-CCA and DNR-CC status. Following discussions about the differences in these status, requested DNR-CCA and following further discussions and examples with intubation allowance. Advanced Care Planning Face to Face Time: 16 Charges/Coding Visit Charges Inpatient E&M: 63413 Init Hosp L3 Procedures Hospitalists Procedures: 25890 Advncd Care Plan 30 Min
--- OUTSIDE RECORDS SUMMARY | 2025-01-06 23:08 | XMS RPT_ITS | CCD ---
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 Name Role Phone CONOR ABBASIKASH Unavailable SHEILA DUVAL Unavailable ELROYCLARITA PackSH Unavailable SHEILA DUVAL Unavailable MUKUND, SHEILA Unavailable [...] Other Provider MD Armen Carl Other Provider [facility], [facility] Other Provider Eisenhart, DO Naresh E Admit Provider Eisenhpattie, DO Naresh E Attending Provider Devika Stein Primary Care Provider [facility] Other Provider DEVIKA STEIN Primary Care Unavailable DEVIKA STEIN Attending Unavailable PROVIDER, UNKNOWN Surgeon Unavailable ERICKA CASSIDY Primary Care Unavailabl e KINNEAR, CHRISTOPHER Admitting Unavaila ble KINNEAR, CHRISTOPHER Attending Unavaila ble PROVIDER, UNKNOWN Surgeon Unavailable PROVIDER, UNKNOWN Surgeon Unavailable Errol Silva Referring Unavailable Errol Silva Attending Unavailable Eisenhpattie, Naresh E Admitting Unavailable Eisestefania, Naresh E Attending Unavailable Stein Devika Primary Care Unavailable [facility] Consulting Unavailable Ericka Cassidy Primary Care Unavailable Khreis, Verito I Admitting Unavailable Khreis, Verito I Attending Unavailable David, Chaohua Consulting Unavailable Limbu, Armen Consulting Unavailable [facility], [facility] Consulting Unavailable Care Physician, No Primary Primary Care Provider Unavailable Dr. Kaushik Brown DO Emergency Provider Dr. Saroj Gutierrez DO Admit Provider Dr. Saroj Gutierrez DO Attending Provider Dr. Saroj Gutierrez DO Other Provider Dr. Mao Muse MD Attending Provider Dr. Tello Borrego MD Other Provider Ruben KRUSE, Dr. Churchill Other Provider [facility] ABHISHEK Primary Care Provider Dr. Mao Muse MD Other Provider Damaris KRUSE, Dr. Wilson Other Provider Dr. Joesph Syed MD Other Provider Dawson KRUSE, Dr. Malagon Other Provider Kailey MARCOS Dr. Lance Other Provider Morgan KRUSE, Dr. Darnell Brito Other Provider [phone] Andrzej KRUSE, Dr. Palmer Other Provider Kelsey KRUSE, Dr. Viera Other Provider [phone] Jin KRUSE, Dr. Gallagher Other Provider Shayy KRUSE, Dr. Vaca Other Provider Evan KRUSE, Dr. Gale Other Provider Onel KRUSE, Dr. Faulkner Other Provider Parker KRUSE, Dr. Roberts Other Provider Ladi KRUSE, Dr. Lowe Other Provider Unavailabl beth Vasquez MD, Dr. Turpin Other Provider [phone] Rahel KRUSE, Dr. Gross Other Provider Mary KRUSE, Dr. Epstein Other Provider [phone] Korin KRUSE, Dr. Garcia Other Provider Monik MARCOS, Dr. Goldstein Other Provider [phone] Rachel KRUSE, Dr. Osullivan Other Provider [phone] Graciela KRUSE, Dr. Camarena Other Provider [phone] Sy MARCOS, Dr. Mcgovern Other Provider Tim KRUSE, Dr. Garcia Other Provider Hemant KRUSE, Dr. Henry Other Provider [phone] Leonides MARCOS, Dr. Romero Emergency Provider Dr. Bisi Rivera DO Admit Provider Dr. Bisi Rivera DO Attending Provider Dr. Bisi Rivera DO Other Provider Jam KRUSE, Dr. Banks Attending Provider Dr. John Rod DO Other Provider Tereletsky DO, Dr. John Attending Provider [phone] Care Physician, No Primary Primary Care Unava ilable Saroj Gutierrez Admitting Unavailable Saroj Gutierrez Consulting Unavailable Mao Muse Attending Unavailable Steve Ocampo Consulting Unavailable Joesph Syed Consulting Unavailable Manas Osamn Consulting Unavailable Lance Bonner Consulting Unavailable Darnell Mora Consulting Unavailable Spencer Donnelly Consulting Unavailable Maximiliano Cole Consulting Unavailable Aileen Abdi Consulting UnavailLio Simpson Consulting Unavailable Baljinder Gordon Consulting Unavailable Kaushik Sykes Consulting Unavailable Alejandra Canales Consulting Unavailable AlChrissy birmingham Consulting Unavailable Dyana Vasquez Consulting Unavailable Renato Mcginnis Consulting Unavailable Lucian Hernandez Consulting Unavailable Jose Langley Consulting Unavailable DheChioma whitakerTriston Consulting Unavailable Shi Ramos Consulting Unavailable Migue Owens Consulting Unavailable Froilan Dan Consulting Unavailable Jose Dumont Consulting Unavailable Carl Marcos Consulting Unavailable Mao Muse Consulting Unavailable Care Physician, No Primary Primary Care Unava ilable Saroj Gutierrez Admitting Unavailable Saroj Gutierrez Attending Unavailable Saroj Gutierrez Consulting Unavailable Bisi Rivera Admitting Unavailable STURGEON, ABHISHEK Primary Care Unavailable Bisi Rivera Consulting Unavailable Jocelyn Polk Attending Unavailable John Rod Consulting Unavailable Jocelyn Polk Consulting Unavailable John Rod Attending Unavailable Aviva Brandt Attending Unavailable Care Physician, No Primary Primary Care Unava ilable Bisi Rivera Admitting Unavailable Bisi Rivera Consulting Unavailable [facility] Primary Care Unavailable Jocelyn Polk Attending Unavailable John Rod Consulting Unavailable STURGEON, [facility] Primary Care Unavailable Saroj Gutierrez Consulting Unavailable Mao Muse Attending Unavailable Saroj Gutierrez Admitting Unavailable Tello Borrego Consulting Unavailable Ruben, Oswaldoyaprakas Consulting Unavailable Bisi Rivera Attending Unavailable [facility] Primary Care Unavailable Tello Borrego Consulting Unavailable Ruben, Jayaprakas Consulting Unavailable Allergies Allergy Classification Reported Allergen(s) Allergy Type Date of Onset Reaction(s) Facility (14 sources) ibuprofen; Translations: [Ibuprofen] drug allergy 06-02-2022 [facility] (3 sources) Ibuprofen Drug Allergy 07-02-2021 [facility] Medications Current Medications Medication Drug Class(es) Dates Sig (Normalized) Sig (Original) allopurinol 100 mg oral tablet (16 sources) Xanthine Oxidase Inhibitor Start: 05-03-2013 take 1 tablet by mouth once daily at mealtime Allopurinol 100 MG tablet Active 100 mg PO DAILY WITH MEALS May 03, 2013 1:00am ciprofloxacin 500 mg oral tablet (1 source) Quinolone Antimicrobial Start: 06-02-2022 take 500 mg by mouth twice daily Ciprofloxacin Hcl Active 500 MG PO Twice A Day June 02, 2022 12:00am docusate sodium 100 mg oral capsule (1 source) Start: 10-19-2024 take 2 capsules by mouth twice daily Docusate Sodium 100 mg Capsule Active 200 mg PO TWICE A DAY 40 October 19, 2024 12:00am donepezil hydrochloride 10 mg oral tablet (6 sources) Start: 03-18-2024 take 1 tablet by mouth at bedtime Donepezil 10 mg tablet Active 10 mg PO AT BEDTIME March 18, 2024 1:00am Start: 04-23-2022 take 5 mg by mouth once daily Donepezil Active 5 MG PO Every Day April 23, 2022 12:00am Dulaglutide (4 sources) GLP-1 Receptor Agonist Start: 03-18-2024 Dulaglutide (Trulicity) 3 mg/0.5 mL pen injector Active 3 mg SC EVERY WEEK March 18, 2024 1:00am DULoxetine 60 mg delayed release oral capsule (15 sources) Serotonin and Norepinephrine Reuptake Inhibitor Start: [...] Oral Active empagliflozin 25 mg oral tablet (4 sources) Sodium-Glucose Cotransporter 2 Inhibitor Start: 03-18-2024 take 1 tablet by mouth once daily Empagliflozin (Jardiance) 25 mg tablet Active 25 mg PO DAILY March 18, 2024 1:00am ezetimibe 10 mg oral tablet (7 sources) Dietary Cholesterol Absorption Inhibitor Start: 03-18-2024 take 1 tablet by mouth once daily Ezetimibe 10 mg tablet Active 10 mg PO DAILY March 18, 2024 1:00am Start: 10-23-2019 End: 04-19-2022 take 1 tablet by mouth once daily Ezetimibe (Zetia) 10 MG tablet Discontinued 10 MG PO Daily October 22, 2019 11:00pm April 19, 2022 12:47am gabapentin 800 mg oral tablet (17 sources) Anti-epileptic Agent Start: 10-19-2024 Gabapenti n 800 MG tablet Active 400 mg PO 3 TIMES DAILY WITH MEALS October 19, 2024 3:28pm Start: 05-03-2013 End: 10-19-2024 take 1 tablet by mouth three times daily at mealtime Gabapentin 800 MG tablet Discontinued 800 mg PO 3 TIMES DAILY WITH MEALS May 03, 2013 1:00am October 19, 2024 3:28pm take 800 mg by mouth every six hours gabapentin oral 800 mg 4 times per day nerve pain nerve pain Oral Active glipiZIDE er 10 mg 24 hr extended release oral tablet (7 sources) Sulfonylurea Start: 03-18-2024 take 1 tablet by mouth once daily Glipizide 10 mg tablet extended release 24hr Active 10 mg PO DAILY March 18, 2024 1:00am Start: 11-24-2017 take 2 tablets by [facility] once daily Glipizide (Glucotrol) 5 MG tablet Active 10 MG PO Daily November 23, 2017 11:00pm 3 ml insulin glargine 100 unt/ml pen injector (9 sources) Insulin Analog Start: 10-13-2024 Insulin Glargi ne (Basaglar Kwjhonypen U-100 Insulin) 100 unit/mL (3 mL) insulin pen Active 75 U SC EVERY EVENING October 13, 2024 12:00am Start: 08-23-2024 End: 10-13-2024 Insulin Glargine (Basaglar K huangkpen U-100 Insulin) 100 unit/mL (3 mL) insulin pen Discontinued 35 U SC EVERY EVENING August 23, 2024 11:14am October 13, 2024 10:51pm Start: 03-18-2024 End: 08-23-2024 Insulin Glargine (Basaglar K wikpen U-100 Insulin) 100 unit/mL (3 mL) insulin [...] 12:00am levothyroxine sodium 0.05 mg oral tablet (4 sources) l-Thyroxine Start: 03-18-2024 take 1 tablet by mouth once daily Levothyroxine 50 mcg tablet Active 50 ug PO DAILY March 18, 2024 1:00am lisinopril 2.5 mg oral tablet (4 sources) Angiotensin Converting Enzyme Inhibitor Start: 03-18-2024 take 1 tablet by mouth once daily Lisinopril 2.5 mg tablet Active 2.5 mg PO DAILY March 18, 2024 1:00am LORazepam 1 mg oral tablet (2 sources) Benzodiazepine Start: 06-01-2022 End: 06-01-2022 take 1 mg by mouth once daily Lorazepam Discontinued 1 MG PO Daily June 01, 2022 12:00am June 01, 2022 1:15am Zgrmyaiy-Oyg-Hc-Lyc open-Lutein (Centrum Silver Tablet) 1 EACH tablet (2 sources) Start: 05-03-2013 Qqayhkpc-Tew-Wz-Ly copen-Lutein (Centrum Silver Tablet) 1 EACH tablet Active 1 NMA PO DAILY May 03, 2013 1:00am Start: 05-03-2013 Arkdkjuh-Fvh-S n-Namgwxt-Czrcdv (Centrum Silver Tablet) 1 EACH tablet Active 1 EACH PO DAILY May 03, 2013 1:00am polyethylene glycol 3350 51703 mg powder for oral solution (2 sources) Osmotic Laxative Start: 04-23-2022 take 17 g by mouth once daily as needed Polyethylene Glycol 3350 Active 17 GM PO Daily as needed April 23, 2022 12:00am pramipexole dihydrochloride 0.125 mg oral tablet (15 sources) Nonergot Dopamine Agonist Start: 03-18-2024 take 1 tablet by mouth twice daily Pramipexole 0.125 mg tablet Active 0.125 mg PO TWICE A DAY March 18, 2024 1:00am Start: 05-17-2018 take 0.125 mg by brooks th at bedtime Pramipexole Active 0.125 MG PO Bedtime May 17, 2018 12:00am take 2 tablets by mo uth at bedtime Pramipexole dihydrochloride 0.125 MG Oral Tablet [Mirapex] 0.25 mg At bedtime 1-2 tabs at bedtime 1-2 tabs at bedtime Oral Active QUEtiapine 50 mg oral tablet (13 sources) Atypical Antipsychotic Start: 10-19-2024 Quetiap ine 50 mg tablet Active 25 mg PO DAILY October 19, 2024 3:28pm Start: 03-18-2024 End: 08-23-2024 take 1 tablet by mouth twice daily Quetiapine 100 mg tablet Discontinued 100 mg PO TWICE A DAY March 18, 2024 1:00am August 23, 2024 11:10am Start: 03-18-2024 End: 10-19-2024 take 1 tablet by mouth once daily Quetiapine 50 mg tablet Discontinued 50 mg PO DAILY March 18, 2024 1:00am October 19, 2024 3:28pm Start: 05-31-2022 take 1 tablet by brooks th at bedtime Quetiapine Active 1 TAB PO Bedtime May 31, 2022 12:00am Start: 04-19-2022 take 50 mg by mouth once daily Quetiapine Active 50 MG PO Every Day April 19, 2022 12:00am tamsulosin hydrochloride 0.4 mg oral capsule (1 source) alpha-Adrenergic Maribell Start: 10-15-2024 take 1 capsule by mouth once daily Tamsulosin 0.4 mg capsule Active 0.4 mg PO DAILY October 15, 2024 12:00am traMADol hydrochloride 50 mg oral tablet (18 sources) Opioid Agonist Start: 10-19-2024 take 1 tablet by mouth every eight hours as needed for pain Tramadol 50 mg tablet Active 50 mg PO Q8H as needed for pain October 19, 2024 3:28pm Start: 03-18-2024 End: 10-19-2024 take 1 tablet by mouth four times daily Tramadol 50 mg tablet Discontinued 50 mg PO 4 TIMES DAILY March 18, 2024 1:00am October 19, 2024 3:28pm Start: 11-24-2017 End: 04-23-2022 take 50 mg by mouth every six hours Tramadol Discontinued 50 MG PO Q6H April 19, 2022 12:00am April 23, 2022 10:04am take 50 mg by mouth at bedtime t ramadol oral 50 mg At bedtime pain pain Oral Active traZODone hydrochloride 50 mg oral tablet (13 sources) Serotonin Reuptake Inhibitor Start: 08-23-2024 take 1 tablet by mouth at bedtime Trazodone 50 mg Tablet Active 50 mg PO AT BEDTIME 0 August 23, 2024 12:00am Home medication. [...] 4 times a day as needed 20 5 November 24, 2017 11:00pm May 17, 2018 3:05pm [id number] 200 actuat albuterol 0.09 mg/actuat metered dose inhaler (4 sources) beta2-Adrenerg ic Agonist Start: 03-18-2024 End: 08-19-2024 Albuterol Sulfate 90 mcg/actuation HFA aerosol inhaler Discontinued 2 NMA INHALATION NEEDED March 18, 2024 1:00am August 19, 2024 11:59pm atorvastatin 10 mg oral tablet (7 sources) HMG-CoA Reductase Inhibitor Start: 03-18-2024 End: 10-13-2024 take 1 tablet by mouth once daily in the evening Atorvastatin 10 mg tablet Discontinued 10 mg PO EVERY EVENING March 18, 2024 1:00am October 13, 2024 10:51pm Start: 10-23-2019 take 10 mg by mouth at bedtime Atorvastatin Active 10 MG PO Bedtime October 22, 2019 11:00pm busPIRone hydrochloride 15 mg oral tablet (16 sources) Start: 11-24-2017 End: 04-19-2022 take 15 [...] day for anxiety for anxiety Oral Active cefdinir 300 mg oral capsule (3 sources) Cephalosporin Antibacterial Start: 08-23-2024 End: 10-19-2024 take 1 capsule by mouth twice daily Cefdinir 300 mg capsule Discontinued 300 mg PO TWICE A DAY 8 4 August 23, 2024 12:00am October 19, 2024 3:16pm celecoxib 200 mg oral capsule (5 sources) Nonsteroidal Anti-inflammatory Drug Start: 05-03-2013 End: 03-18-2024 take 1 capsule by mouth once daily Celecoxib 200 MG capsule Discontinued 200 mg PO DAILY May 03, 2013 1:00am March 18, 2024 1:02pm centram silver (8 sources) take 1 tablet by mouth once daily centram silver 1 tablet Every day vitamin vitamin Oral Active cephalexin 500 mg oral capsule (8 sources) Cephalosporin Antibacterial Start: 11-06-2022 End: 03-18-2024 [...] 2022 12:43am clonazePAM 2 mg oral tablet (5 sources) Benzodiazepine Start: 05-03-2013 End: 03-18-2024 take 1 tablet by mouth twice daily Clonazepam (Klonopin) 2 MG tablet Discontinued 2 mg PO TWICE A DAY May 03, 2013 1:00am March 18, 2024 1:02pm 168 hr cloNIDine 0.39826 mg/hr transdermal system (6 sources) Central alpha-2 Adrenergic Agonist Start: 08-19-2024 End: 10-13-2024 Clonidine 0.2 mg/24 hr patch weekly Discontinued 1 NMA TOPICAL EVERY WEEK August 19, 2024 12:00am October 13, 2024 10:48pm Start: 04-23-2022 Clonidine Acti ve 1 EACH TD Bedolla@1000 4 April 23, 2022 12:00am doxazosin 2 mg oral tablet (7 sources) alpha-Adrenergic Maribell Start: 03-18-2024 End: 03-18-2024 take 1 tablet by mouth once daily Doxazosin 2 mg tablet Discontinued 2 mg PO DAILY March 18, 2024 1:00am March 18, 2024 12:58pm Start: 05-17-2018 take 2 mg by mouth twice daily Doxazosin Active 2 MG PO Twice A Day May 17, 2018 12:00am fenofibrate 145 mg oral tablet (16 sources) Peroxisome Proliferator Receptor alpha Agonist Start: 05-03-2013 End: 03-18-2024 take 1 tablet by mouth once daily Fenofibrate Nanocrystallized 145 MG tablet Discontinued 145 mg PO DAILY May 03, 2013 1:00am March 18, 2024 1:02pm 72 hr fentaNYL 0.0375 mg/hr transdermal system (16 sources) Opioid Agonist Start: 11-24-2017 End: 04-19-2022 [...] TD Active furosemide 40 mg oral tablet (5 sources) Loop Diuretic Start: 05-03-2013 End: 03-18-2024 [...] Active metFORMIN hydrochloride 500 mg oral tablet (13 sources) Biguanide Start: 05-03-2013 End: 03-18-2024 take 1 tablet by mouth three times daily at mealtime Metformin 500 MG tablet Discontinued 500 mg PO 3 TIMES DAILY WITH MEALS May 03, 2013 1:00am March 18, 2024 1:02pm take 1000 mg by mout h twice daily before mealtime metformin oral 1,000 mg 2 times per day before meals blood sugar blood sugar Oral Active Kwcqtryk-Ego-Zz-Lycopen-Lute in (Centrum Silver) 1 EACH tablet (6 sources) Start: 11-24-2017 End: 04-19-2022 take 1 tablet by mouth once daily Smmmajzi-Kqz-Mg-Lycopen-Lutein (Centrum Silver) 1 EACH tablet Discontinued 1 EACH PO Daily November 23, 2017 11:00pm April 19, 2022 12:42am Start: 05-03-2013 take 1 tablet by brooks th once daily Fxmblved-Hxp-He-Lycopen-Lutein (Centrum Silver) 1 EACH tablet Active 1 NMA PO DAILY May 03, 2013 1:00am 12 hr orphenadrine citrate 100 mg extended release oral tablet (5 sources) Muscle Relaxant Start: 05-03-2013 End: 03-18-2024 [...] chloride 20 meq extended release oral tablet (5 sources) Start: 05-03-2013 End: 03-18-2024 Klor-Con M10 [...] Course Completed ramipril 10 mg oral capsule (16 sources) Angiotensin Converting Enzyme Inhibitor Start: 05-03-2013 [...] Oral Jan 30, 2015 Discontinued Course Completed rivaroxaban 20 mg oral tablet (4 sources) Factor Xa Inhibitor Start: 03-18-2024 End: 10-13-2024 take 1 tablet by mouth once daily at dinner Rivaroxaban (Xarelto) 20 mg tablet Discontinued 20 mg PO DAILY March 18, 2024 1:00am October 13, 2024 10:49pm must administer with evening meal rosuvastatin calcium 10 mg oral tablet (5 sources) HMG-CoA Reductase Inhibitor Start: 05-03-2013 End: 08-19-2024 take 1 tablet by mouth once daily Rosuvastatin 10 MG tablet Discontinued 10 mg PO DAILY May 03, 2013 1:00am August 19, 2024 11:57pm tiZANidine 2 mg oral tablet (20 sources) Central alpha-2 Adrenergic Agonist Start: 08-23-2024 End: 10-19-2024 take 2 tablets by mouth once daily in the evening as needed for muscle spasms Tizanidine 2 mg Tablet Discontinued 4 mg PO EVERY EVENING as needed for muscle spasms 0 August 23, 2024 12:00am October 19, 2024 3:25pm Start: 03-18-2024 End: 08-23-2024 take 1 tablet [...] day muscle relaxant muscle relaxant Oral Active warfarin sodium 3 mg oral tablet (16 sources) Vitamin K Antagonist Start: 11-24-2017 End: [...] 04-20-2022 Episodic Acute and unspecified renal failure (7 sources) Acute kidney failure, unspecified; Translations: [Acute renal failure syndrome] Onset: 07-02-2021 08-31-2024 Episodic Anxiety disorders (1 source) Generalized anxiety disorder; Translations: [GENERALIZED ANXIETY DISORDER] Onset: 07-02-2021 Chronic Chronic kidney disease (8 sources) Chronic kidney disease, stage 3 (moderate); [...] dementia, and amnestic and other cognitive disorders (9 sources) Dementia; Translations: [Unspecified dementia without behavioral disturbance] Onset: 07-02-2021 05-31-2022 Chronic Diabetes mellitus with complications (5 sources) Type 2 diabetes mellitus with diabetic neuropathy, unspecified; Translations: [Type 2 diabetes mellitus with other specified complication] Onset: 07-02-2021 Chronic Diabetes mellitus without complication (16 sources) Diabetes mellitus; Translations: [Type 2 diabetes mellitus without complications] Onset: 01-04-2016 08-25-2016 Chronic Disorders of lipid metabolism (7 sources) Hyperlipidemia, unspecified; Translations: [Hyperlipidemia] Onset: 01-04-2016 03-26-2022 Chronic E Codes: Fall (3 sources) Fall; Translations: [Unspecified fall, initial encounter] 06-17-2018 Episodic Essential hypertension (6 sources) Essential (primary) hypertension; Translations: [Benign hypertension] Onset: 01-04-2016 03-26-2022 Chronic Fluid and electrolyte disorders (4 sources) Hypokalemia; Translations: [Lactic acidosis] Onset: 07-02-2021 10-14-2024 Episodic Gout and other crystal arthropathies (5 sources) Gout; Translations: [Chronic gout, unspecified, without tophus (tophi)] Onset: 07-02-2021 08-25-2016 Chronic Infective arthritis and osteomyelitis (except that caused by tuberculosis or sexually transmitted disease) (2 sources) Other acute osteomyelitis, right ankle and foot; Translations: [Other osteomyelitis, ankle and foot] Onset: 07-02-2021 Chronic Malaise and fatigue (3 sources) Asthenia; Translations: [Other malaise] Onset: 10-19-2024 10-15-2024 Episodic Mycoses (4 sources) Candiduria; Translations: [Other urogenital candidiasis] 04-22-2022 Episodic Nonspecific chest pain (11 sources) Chest pain; Translations: [Chest pain, unspecified] 01-29-2015 Episodic Nutritional deficiencies (1 source) Vitamin D deficiency, unspecified; Translations: [VITAMIN D DEFICIENCY, UNSPECIFIED] Onset: 07-02-2021 Chronic Other aftercare (2 sources) Long-term current use of anticoagulant; Translations: [client reporting associate (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 of anticoagulants] 04-23-2022 Episodic Other injuries and conditions due to external causes (4 sources) Falling injury Onset: 08-25-2016 08-25-2016 Other lower respiratory disease (4 sources) Cough; Translations: [Cough] 03-26-2024 Episodic Other nervous system disorders (3 sources) Neuropathy; Translations: [Polyneuropathy, unspecified] 03-26-2022 Chronic Other nervous system disorders (1 source) Polyneuropathy, unspecified; Translations: [Mononeuritis of unspecified site] 04-23-2022 Chronic Other nervous system disorders (1 source) Disorder of brain; Translations: [Encephalopathy, unspecified] 05-31-2022 Chronic Other nervous system disorders (2 sources) Encephalopathy, unspecified; Translations: [Encephalopathy, unspecified] Onset: 10-19-2024 06-02-2022 Chronic Other nervous system disorders (9 sources) Metabolic encephalopathy; Translations: [Metabolic encephalopathy] 08-20-2024 Chronic Other nervous system disorders (1 source) Metabolic encephalopathy; Translations: [Metabolic encephalopathy] Onset: 10-24-2024 Chronic Other nutritional; endocrine; and metabolic disorders [...] elsewhere] 04-19-2022 Episodic Septicemia (except in labor) (13 sources) Septic shock; Translations: [Sepsis, unspecified organism] Onset: 10-24-2024 08-20-2024 Episodic Shock (1 source) Severe sepsis with septic shock; Translations: [Severe sepsis with septic shock] Onset: 08-23-2024 Episodic Skin and subcutaneous tissue infections (9 sources) Cellulitis of lower limb; Translations: [Cellulitis of left lower limb] Onset: 07-02-2021 11-23-2019 Episodic Spondylosis; intervertebral disc disorders; other back problems (2 sources) Postlaminectomy syndrome, not elsewhere classified; Translations: [Spondylosis without myelopathy or radiculopathy, cervical region] Onset: 08-29-2021 Chronic Spondylosis; intervertebral disc disorders; other back problems (6 sources) Cervical radiculopathy; Translations: [Radiculopathy, cervical region] 12-26-2017 Episodic Superficial injury; contusion (5 sources) Superficial injury of hand with infection; Translations: [Abrasion of left hand, initial encounter] 11-06-2022 Episodic Unclassified (4 sources) Onset: 04-25-2016 Unclassified (1 source) CONTACT WITH AND (SUSPECTED) EXPOSURE TO COVID-19; Translations: [CONTACT WITH AND (SUSPECTED) EXPOSURE TO COVID-19] Onset: 07-02-2021 Unclassified (3 sources) Dr. Brand's office does not accept your insurance. Please contact your primary care doctor to get set up with a urologist in your network. Unclassified (3 sources) No longer at this office, She is now with [facility] and will come to your house. If you have any issues with your scheduled time please contact them at [phone]. Unclassified (1 source) Please call [phone] to schedule your in home appointment. Unclassified (1 source) Acidosis, unspecified; Translations: [Acidosis, unspecified] Onset: 10-24-2024 Urinary tract infections (20 sources) Acute urinary tract infection; Translations: [Urinary tract infection, site not specified] Onset: 06-06-2022 04-19-2022 Episodic Past or Other Problems Problem Classification Problem Date Documented Da te Episodic/Chronic Allergic reactions (1 source) Allergy status to analgesic agent status; Translations: [ALLERGY STATUS TO ANALGESIC AGENT] Onset: 07-02-2021 Episodic Deficiency and other anemia (1 source) Anemia, unspecified; Translations: [ANEMIA, UNSPECIFIED] Onset: 07-02-2021 Episodic Open wounds of extremities (5 sources) Injury of foot; Translations: [Unspecified open wound, unspecified foot, initial encounter] Onset: 04-14-2024 03-26-2024 Episodic Open wounds of head; neck; and trunk (1 source) Unspecified open wound of lower back and pelvis without penetration into retroperitoneum, initial encounter; Translations: [UNSP OPN WND LOW BACK AND PELV W/O PENET RETROPERI] Onset: 07-02-2021 Episodic Other aftercare (2 sources) client reporting associate (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 of anticoagulants; Translations: [Long-term (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 of anticoagulants] Onset: 07-02-2021 04-23-2022 Episodic Other aftercare (1 source) 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; Translations: [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 SPECIALIST (CURRENT) DRUG THERAPY] Onset: 07-02-2021 Episodic Other [...] Test Name Value Interpretation Reference Range Facility Absolute lymphocyte countOrd ered By: Jocelyn Polk on 10-19-2024 Lymphocytes Auto (Unsp spec) [#/Vol] 1.16 10*3/uL 0.83-4.51 [facility] Absolute neutrophil countOrd ered By: Jocelyn Polk on 10-19-2024 Neutrophils (Bld) [#/Vol] 3.4 10*3/uL 2.0-7.7 [facility] Anion gap in Serum or Plasma Ordered By: Jocelyn Polk on 10-19-2024 Anion gap [Moles/Vol] 14 mmol/L 5-15 [facility] Automated lymphocyte count a s percentage of total leukocytesOrdered By: Jocelyn Polk on 10-19-2024 Lymphocytes/100 WBC Auto (Unsp spec) 22.7 % -41 [facility] BUN/creatinine ratioOrdered By: Jocelyn Polk on 10-19-2024 Urea nitrogen/Creatinine [Mass ratio] 9.4 mg/mg Low 10-20 [facility] Basic Metabolic Profile (BMP )on 10-19-2024 BUN/CRE 9.4 RATIO Low - [facility] Comment on above: Performed By: #### L 501.080 #### [facility] [address] [place], [address] Calcium [Mass/Vol] 8.8 mg/dL Normal 7.6-11.0 [facility] Comment on above: Performed By: #### L 501.080 #### [facility] [address] [place], [address] Chloride [Moles/Vol] 100 mmol/L Normal 98-108 [facility] Comment on above: Performed By: #### L 501.080 #### [facility] [address] [place], [address] CO2 [Moles/Vol] 23.0 mmol/L Normal 21.0-32.0 [facility] Comment on above: Performed By: #### L 501.080 #### [facility] [address] [place], [address] Creatinine [Mass/Vol] 1.60 mg/dL High 0.70-1.20 [facility] Comment on above: Performed By: #### L 501.080 #### [facility] [address] [place], [address] ECRCL 53.64 ml/min Normal 50-250 [facility] Comment on above: Performed By: #### L 501.080 #### [facility] [address] [place], [address] GAP 14 Normal 5-15 [facility] Comment on above: Performed By: #### L 501.080 #### [facility] [address] [place], [address] GFR/1.73 sq M.predicted among non-blacks MDRD (S/P/Bld) [Vol rate/Area] 45 mL/min/{1.73_m2} Low >60 [facility] Comment on above: Result Comment: mL/m in/1.73m2 CKD-EPI Creatinine Equation (2020) Performed By: #### L 501.080 #### [facility] [address] [place], [address] Glucose [Mass/Vol] 171 mg/dL High 70-99 [facility] Comment on above: Performed By: #### L 501.080 #### [facility] [address] [place], [address] Potassium [Moles/Vol] 3.8 mmol/L Normal 3.3-5.1 [facility] Comment on above: Performed By: #### L 501.080 #### [facility] [address] [place], [address] Sodium [Moles/Vol] 137 mmol/L Normal 133-145 [facility] Comment on above: Performed By: #### L 501.080 #### [facility] [address] [place], [address] Urea nitrogen [Mass/Vol] 15 mg/dL Normal 4-19 [facility] Comment on above: Performed By: #### L 501.080 #### [facility] [address] [place], [address] Basophil percentageOrdered B y: Jocelyn Polk on 10-19-2024 Basophils/100 WBC (Bld) 0.8 % 0-1 [facility] Bedside Glucoseon 10-19-2024 FINGERSTICK GLU 160 mg/dL High 74-106 [facility] Comment on above: Result Comment: NITZA GEMENT OF PATIENT CARE PER NURSING PROTOCOL Performed By: #### L 501.080 #### [facility] [address] [place], [address] FINGERSTICK GLU 140 mg/dL High 74-106 [facility] Comment on above: Result Comment: NITZA GEMENT OF PATIENT CARE PER NURSING PROTOCOL Performed By: #### L 501.080 #### [facility] [address] [place], [address] FINGERSTICK GLU 144 mg/dL High 74-106 [facility] Comment on above: Result Comment: NITZA NGUYEN OF PATIENT CARE PER NURSING PROTOCOL Performed By: #### L 501.080 #### [facility] [address] [place], [address] CBC W/Diff, Automatedon 10-02 Absolute Lymph 1.16 X10 3/uL Normal 0.83-4.51 [facility] Comment on above: Performed By: #### L 501.080 #### [facility] [address] [place], [address] Absolute Neut 3.4 X10 3/uL Normal 2.0-7.7 [facility] Comment on above: Performed By: #### L 501.080 #### [facility] [address] [place], [address] Basophils/100 WBC (Bld) 0.8 % Normal 0-1 [facility] Comment on above: Performed By: #### L 501.080 #### [facility] [address] [place], [address] Eosinophils/100 WBC (Bld) 2.3 % Normal 0-5 [facility] Comment on above: Performed By: #### L 501.080 #### [facility] [address] [place], [address] Erythrocyte distribution width (RBC) [Ratio] 14.5 % Normal 11.6-14.6 [facility] Comment on above: Performed By: #### L 501.080 #### [facility] [address] [place], [address] Hematocrit (Bld) [Volume fraction] 39.9 % Low 40-54 [facility] Comment on above: Performed By: #### L 501.080 #### [facility] [address] [place], [address] Hemoglobin (Bld) [Mass/Vol] 13.3 g/dL Normal 13.0-16.5 [facility] Comment on above: Performed By: #### L 501.080 #### [facility] [address] [place], [address] IG% 1.000 High 0.0-0.9 [facility] Comment on above: Result Comment: IG% - Immature Granulocytes (promyelocytes, myelocytes and metamyelocytes) > 1% indicates that a LEFT SHIFT is Present. Performed By: #### L 501.080 #### [facility] [address] [place], [address] Lymphocytes/100 WBC (Bld) 22.7 % Normal 19-41 [facility] Comment on above: Performed By: #### L 501.080 #### [facility] [address] [place], [address] MCH (RBC) [Entitic mass] 30.5 pg Normal 27.0-32.0 [facility] Comment on above: Performed By: #### L 501.080 #### [facility] [address] [place], [address] MCHC (RBC) [Mass/Vol] 33.3 g/dL Normal 32-36 [facility] Comment on above: Performed By: #### L 501.080 #### [facility] [address] [place], [address] MCV (RBC) [Entitic vol] 91.5 fL Normal 80-94 [facility] Comment on above: Performed By: #### L 501.080 #### [facility] [address] [place], [address] Monocytes/100 WBC (Bld) 6.4 % Normal 0-10 [facility] Comment on above: Performed By: #### L 501.080 #### [facility] [address] [place], [address] Neutrophils/100 WBC (Bld) 66.8 % Normal 47-70 [facility] Comment on above: Performed By: #### L 501.080 #### [facility] [address] [place], [address] Nucleated RBC (Bld) [#/Vol] 0 10*3/uL Normal 0-5 [facility] Comment on above: Performed By: #### L 501.080 #### [facility] [address] [place], [address] Platelet mean volume (Bld) [Entitic vol] 8.8 fL Normal 6.2-12.0 [facility] Comment on above: Performed By: #### L 501.080 #### [facility] [address] [place], [address] Platelets (Bld) [#/Vol] 110 10*3/uL Low 150-450 [facility] Comment on above: Performed By: #### L 501.080 #### [facility] [address] [place], [address] RBC (Bld) [#/Vol] 4.36 10*6/uL Low 4.6-6.2 [facility] Comment on above: Performed By: #### L 501.080 #### [facility] [address] [place], [address] RDW SD 48.9 fl High 35.1-43.9 [facility] Comment on above: Performed By: #### L 501.080 #### [facility] [address] [place], [address] WBC (Bld) [#/Vol] 5.1 10*3/uL Normal 4.4-11.0 [facility] Comment on above: Performed By: #### L 501.080 #### [facility] [address] [place], [address] Carbon dioxide, total [Moles /volume] in Central venous bloodOrdered By: Jocelyn Polk on 10-19-2024 CO2 [Moles/Vol] 23.0 mmol/L 21.0-32.0 [facility] Chloride assayOrdered By: Brant Polk on 10-19-2024 Chloride [Moles/Vol] 100 mmol/L 98-108 [facility] Culture, Blood (WB)on 2024 CUB Blood cultures x2, from two different sites No growth in 5 days. Normal [facility] Comment on above: Performed By: #### L 501.080 #### [facility] [address] [place], [address] Discharge Instructionon 10-02 Discharge Instruction [facility] Medical Records Department [address] [place] [address] Instructions for Home/Discharge Instructions 10/19/24 1513 MR#: [id number] Acct: [id number] Name: CHARLI PORRAS Rep #: [id number] : 1950 74 From: Jocelyn Polk MD PCP: [facility] Status:ADM IN Discharge Instructions DC O2, CPAP, BIPAP needs Home O2 Discharge instructions: No Dressing / Incision Discharge Activity: - (Increase activity as tolerated) Follow Up Care Test Results: Test results from this visit will be discussed in further detail at your follow-up appointment, if applicable. Discharge Plan Admission Admit Date/Time: 10/13/24 23:44 Primary Reason for Your Visit: Altered mental status Attending Provider: Jocelyn Polk Primary Care Provider: ABHIS[facility] Consulting Providers: Bisi Rivera; John Rod Instructions Patient Instructions: ED Fall Prevention Additional Instructions / Restrictions: DISCHARGE INSTRUCTIONS PLEASE READ *Please take this with you to your next doctors appointment* -As discussed your gabapentin has been decreased to 400 mg 3 times a day to help minimize sedation - your Seroquel was also decreased to 25 mg daily to help minimize sedation -You have also done well on tramadol three times daily, you would benefit from continuing this dosing until following up with your outpatient prescribing physician for further evaluation and instruction - due to constipation you will be given a prescription for Dulcolax to take twice daily -Please call your primary care provider's office upon discharge to schedule a hospital follow up within 1 week. -For any concerning signs or symptoms please call 911 or proceed to the nearest emergency department Discharge Orders/Prescriptions Prescriptions: New docusate sodium 100 mg Capsule 200 mg PO BID 10 Days Qty: 40 0RF Continued allopurinol 100 MG tablet 100 mg PO DAILYCM Centrum Silver 1 EACH tablet 1 ea PO DAILY insulin glargine [Basaglar KwikPen U-100 Insulin] 100 unit/mL (3 mL) insulin pen 75 unit subcut QPM tamsulosin 0.4 mg capsule 0.4 mg PO DAILY donepezil 10 mg tablet 10 mg PO QHS Trulicity 3 mg/0.5 mL pen injector 3 mg subcut QWEEK duloxetine 60 mg capsule,delayed release(DR/EC) 60 mg PO DAILY lisinopril 2.5 mg tablet 2.5 mg PO DAILY pramipexole 0.125 mg tablet 0.125 mg PO BID ezetimibe 10 mg tablet 10 mg PO DAILY glipizide 10 mg tablet extended release 24hr 10 mg PO DAILY Jardiance 25 mg tablet 25 mg PO DAILY levothyroxine 50 mcg tablet 50 mcg PO DAILY trazodone 50 mg Tablet 50 mg PO QHS Qty: 0 0RF Rx Instructions: Home medication. trazodone 50 mg Tablet 50 mg PO DAILY@1700 Qty: 0 0RF Rx Instructions: Home medication. Changed tramadol 50 mg tablet 50 mg PO Q8H PRN (Reason: pain) Qty: 30 0RF gabapentin 800 MG tablet 400 mg PO TIDCM Qty: 45 0RF quetiapine 50 mg tablet 25 mg PO DAILY 30 Days Qty: 30 0RF Discontinued tizanidine 2 mg Tablet 4 mg PO QPM PRN (Reason: muscle spasms) Qty: 0 0RF cefdinir 300 mg capsule 300 mg PO BID 4 Days Qty: 8 0RF Referrals / Follow Up: ABHISHE[facility] ST CRNP [Primary Care Provider] - Within 1 Week Disposition Disposition (needs filled in before D/C Order can be placed): Home, Self Care 10/19/24 1529 Jocelyn Polk MD CC: MELY DUARTE; Dr. Bisi Rivera DO; Dr. John Rod DO Signed Normal [facility] Eosinophil percentageOrdered By: Jocelyn Polk on 10-19-2024 Eosinophils/100 WBC (Bld) 2.3 % 0-5 [facility] Erythrocyte distribution wid th ratioOrdered By: Jocelyn Polk on 10-19-2024 Erythrocyte distribution width (RBC) [Ratio] 14.5 % 11.6-14.6 [facility] Erythrocyte distribution wid th standard deviationOrdered By: Jocelyn Polk on 10-19-2024 Erythrocyte distribution width (RBC) [Ratio] 48.9 fl High 35.1-43.9 [facility] Glomerular filtration rate ( GFR) estimation/1.73 sq m using serum, plasma, or whole bOrdered By: Jocelyn Polk on 10-19-2024 GFR/1.73 sq M.predicted among non-blacks MDRD (S/P/Bld) [Vol rate/Area] 45 mL/min/{1.73_m2} Low >60 [facility] Comment on above: mL/min/1.73m2 CKD-EP I Creatinine Equation (2020) [facility] deOrdered By: Jocelyn Polk on 10-19-2024 Glucose [Mass/Vol] 160 mg/dL High 74-106 [facility] Comment on above: MANAGEMENT OF PATIEN T CARE PER NURSING PROTOCOL Hematocrit Auto (Bld) [Volum e fraction]Ordered By: Jocelyn Polk on 10-19-2024 Hematocrit (Bld) [Volume fraction] 39.9 % Low 40-54 [facility] Hemoglobin measurementOrdere d By: Jocelyn Polk on 10-19-2024 Hemoglobin (Bld) [Mass/Vol] 13.3 g/dL 13.0-16.5 [facility] Immature granulocytes/100 WB C Auto (Bld)Ordered By: Jocelyn Polk on 10-19-2024 Immature granulocytes/100 WBC (Bld) 1.000 % High 0.0-0.9 [facility] Comment on above: IG% - Immature Granu locytes (promyelocytes, myelocytes and metamyelocytes) > 1% indicates that a LEFT SHIFT is Present. MCV (mean corpuscular volume ) determinationOrdered By: Jocelyn Polk on 10-19-2024 MCV (RBC) [Entitic vol] 91.5 fL 80-94 [facility] Mean corpuscular hemoglobin (MCH) determinationOrdered By: Jocelyn Polk on 10-19-2024 MCH (RBC) [Entitic mass] 30.5 pg 27.0-32.0 [facility] Mean corpuscular hemoglobin concentration (MCHC) determinationOrdered By: Jocelyn Polk on 10-19-2024 MCHC (RBC) [Mass/Vol] 33.3 g/dL 32-36 [facility] Mean platelet volume determi nationOrdered By: Jocelyn Polk on 10-19-2024 Platelet mean volume (Bld) [Entitic vol] 8.8 fL 6.2-12.0 [facility] Monocyte percentageOrdered B y: Jocelyn Polk on 10-19-2024 Monocytes/100 WBC (Bld) 6.4 % 0-10 [facility] Neutrophil percentageOrdered By: Jocelyn Polk on 10-19-2024 Neutrophils/100 WBC (Bld) 66.8 % 47-70 [facility] Nucleated red blood cell per centageOrdered By: Jocelyn Polk on 10-19-2024 Nucleated RBC/100 WBC (Bld) [Ratio] 0 % 0-5 [facility] Platelet countOrdered By: Brant Polk on 10-19-2024 Platelets (Bld) [#/Vol] 110 10*3/uL Low 150-450 [facility] Potassium measurement (mass/ volume)Ordered By: Jocelyn Polk on 10-19-2024 Potassium (Unsp spec) [Mass/Vol] 3.8 mmol/L 3.3-5.1 [facility] RBC Auto (Bld) [#/Vol]Ordere d By: Jocelyn Polk on 10-19-2024 RBC (Bld) [#/Vol] 4.36 10*6/uL Low 4.6-6.2 [facility] Serum creatinine measurement (mass/volume)Ordered By: Jocelyn Polk on 10-19-2024 Creatinine [Mass/Vol] 1.60 mg/dL High 0.70-1.20 [facility] Serum glucose measurement (m ass/volume)Ordered By: Jocelyn Polk on 10-19-2024 Glucose [Mass/Vol] 171 mg/dL High 70-99 [facility] Serum or plasma calcium maricel urement (mass/volume)Ordered By: Jocelyn Polk on 10-19-2024 Calcium [Mass/Vol] 8.8 mg/dL 7.6-11.0 [facility] Serum or plasma urea nitroge n measurement (mass/volume)Ordered By: Jocelyn Polk on 10-19-2024 Urea nitrogen [Mass/Vol] 15 mg/dL 4-19 [facility] Sodium levelOrdered By: Meredith Polk on 10-19-2024 Sodium [Moles/Vol] 137 mmol/L 133-145 [facility] White blood cell (WBC) count Ordered By: Jocelyn Polk on 10-19-2024 WBC (Bld) [#/Vol] 5.1 10*3/uL 4.4-11.0 [facility] Bedside Glucoseon 10-18-2024 FINGERSTICK GLU 145 mg/dL High 74-106 [facility] Comment on above: Result Comment: NITZA GEMENT OF PATIENT CARE PER NURSING PROTOCOL Performed By: #### L 501.080 #### [facility] [address] [facility] [address] FINGERSTICK GLU 209 mg/dL High [address] [place] [address] Comment on above: Result Comment: NITZA GEMENT OF PATIENT CARE PER NURSING PROTOCOL Performed By: #### L 501.080 #### [facility] [address] [facility] [address] FINGERSTICK GLU 167 mg/dL High [address] [place] [address] Comment on above: Result Comment: NITZA GEMENT OF PATIENT CARE PER NURSING PROTOCOL Performed By: #### L 501.080 #### [facility] [address] [facility] [id number] [phone] Bedside Glucoseon 10-17-2024 FINGERSTICK GLU 137 mg/dL High [facility]106 [facility] Comment on above: Result Comment: NITZA GEMENT OF PATIENT CARE PER NURSING PROTOCOL Performed By: #### L 101.9900, L501.6710, L100.0100, L500.2500 #### [facility] [address] [place], [address] FINGERSTICK GLU 128 mg/dL High 74-106 [facility] Comment on above: Result Comment: NITZA GEMENT OF PATIENT CARE PER NURSING PROTOCOL Performed By: #### L 501.080 #### [facility] [address] [place], [address] FINGERSTICK GLU 186 mg/dL High 74-106 [facility] Comment on above: Result Comment: NITZA GEMENT OF PATIENT CARE PER NURSING PROTOCOL Performed By: #### L 501.080 #### [facility] [address] [place], [address] FINGERSTICK GLU 168 mg/dL High 74-106 [facility] Comment on above: Result Comment: NITZA GEMENT OF PATIENT CARE PER NURSING PROTOCOL Performed By: #### L 501.080 #### [facility] [address] [place], [address] FINGERSTICK GLU 166 mg/dL High 74-106 [facility] Comment on above: Result Comment: NITZA GEMENT OF PATIENT CARE PER NURSING PROTOCOL Performed By: #### L 501.080 #### [facility] [address] [place], [address] Bedside Glucoseon 10-16-2024 FINGERSTICK GLU 135 mg/dL High 74-106 [facility] Comment on above: Result Comment: NITZA GEMENT OF PATIENT CARE PER NURSING PROTOCOL Performed By: #### L 501.080 #### [facility] [address] [place], [address] FINGERSTICK GLU 152 mg/dL High 74-106 [facility] Comment on above: Result Comment: NITZA GEMENT OF PATIENT CARE PER NURSING PROTOCOL Performed By: #### L 501.080 #### [facility] [address] [place], [address] FINGERSTICK GLU 156 mg/dL High 74-106 [facility] Comment on above: Result Comment: NITZA GEMENT OF PATIENT CARE PER NURSING PROTOCOL Performed By: #### L 501.080 #### [facility] [address] [place], [address] FINGERSTICK GLU 185 mg/dL High 74-106 [facility] Comment on above: Result Comment: NITZA GEMENT OF PATIENT CARE PER NURSING PROTOCOL Performed By: #### L 501.080 #### [facility] [address] [place], [address] FINGERSTICK GLU 178 mg/dL High -106 [facility] Comment on above: Result Comment: NITZA GEMENT OF PATIENT CARE PER NURSING PROTOCOL Performed By: #### L 501.080 #### [facility] [address] [place], [address] Urine Cultureon 10-16-2024 URC Yeast, not Callie albicans Daykin Count 50,000-80,000 Normal [facility] Comment on above: Performed By: #### L 101.9900, L501.6710, L100.0100, L500.2500 #### [facility] [address] [place], [address] Bedside Glucoseon 10-15-2024 FINGERSTICK GLU 246 mg/dL High [address] [place] [address] Comment on above: Result Comment: NTIZA GEMENT OF PATIENT CARE PER NURSING PROTOCOL Performed By: #### L 501.080 #### [facility] [address] [place], [address] FINGERSTICK GLU 138 mg/dL High -106 [facility] Comment on above: Result Comment: NITZA GEMENT OF PATIENT CARE PER NURSING PROTOCOL Performed By: #### L 101.9900, L501.6710, L100.0100, L500.2500 #### [facility] [address] [place], [address] FINGERSTICK GLU 129 mg/dL High 74-106 [facility] Comment on above: Result Comment: NITZA GEMENT OF PATIENT CARE PER NURSING PROTOCOL Performed By: #### L 101.9900, L501.6710, L100.0100, L500.2500 #### [facility] [address] [place], [address] FINGERSTICK GLU 109 mg/dL High 74-106 [facility] Comment on above: Result Comment: NITZA GEMENT OF PATIENT CARE PER NURSING PROTOCOL Performed By: #### L 501.080 #### [facility] [address] [place], [address] Bedside Glucoseon 10-14-2024 FINGERSTICK GLU 135 mg/dL High -[address] [place] [address] Comment on above: Result Comment: NITZA GEMENT OF PATIENT CARE PER NURSING PROTOCOL Performed By: #### L 501.080 #### [facility] [address] [place], [address] FINGERSTICK GLU 171 mg/dL High -106 [facility] Comment on above: Result Comment: NITZA GEMENT OF PATIENT CARE PER NURSING PROTOCOL Performed By: #### L 501.080 #### [facility] [address] [place], [address] FINGERSTICK GLU 168 mg/dL High 74-106 [facility] Comment on above: Result Comment: NITZA GEMENT OF PATIENT CARE PER NURSING PROTOCOL Performed By: #### L 501.080 #### [facility] [address] [place], [address] FINGERSTICK GLU 114 mg/dL High -106 [facility] Comment on above: Result Comment: NITZA GEMENT OF PATIENT CARE PER NURSING PROTOCOL Performed By: #### L 101.9900, L501.6710, L100.0100, L500.2500 #### [facility] [address] [place], [address] Bilirubin, totalOrdered By: Bisi Rivera on 10-14-2024 Bilirubin [Mass/Vol] 0.50 mg/dL 0.00-1.30 [facility] CBC W/Diff, Automatedon 10-02 Absolute Lymph 1.61 X10 3/uL Normal 0.83-4.51 [facility] Comment on above: Performed By: #### L 101.9900, L501.6710, L100.0100, L500.2500 #### [facility] [address] [place], [address] Absolute Neut 3.8 X10 3/uL Normal 2.0-7.7 [facility] Comment on above: Performed By: #### L 101.9900, L501.6710, L100.0100, L500.2500 #### [facility] [address] [place], [address] Basophils/100 WBC (Bld) 0.6 % Normal 0-1 [facility] Comment on above: Performed By: #### L 101.9900, L501.6710, L100.0100, L500.2500 #### [facility] [address] [place], [address] Eosinophils/100 WBC (Bld) 3.2 % Normal 0-5 [facility] Comment on above: Performed By: #### L 101.9900, L501.6710, L100.0100, L500.2500 #### [facility] [address] [place], [address] Erythrocyte distribution width (RBC) [Ratio] 14.6 % Normal 11.6-14.6 [facility] Comment on above: Performed By: #### L 101.9900, L501.6710, L100.0100, L500.2500 #### [facility] [address] [place], [address] Hematocrit (Bld) [Volume fraction] 40.9 % Normal 40-54 [facility] Comment on above: Performed By: #### L 101.9900, L501.6710, L100.0100, L500.2500 #### [facility] [address] [place], [address] Hemoglobin (Bld) [Mass/Vol] 13.2 g/dL Normal 13.0-16.5 [facility] Comment on above: Performed By: #### L 101.9900, L501.6710, L100.0100, L500.2500 #### [facility] [address] [place], [address] IG% 1.300 High 0.0-0.9 [facility] Comment on above: Result Comment: IG% - Immature Granulocytes (promyelocytes, myelocytes and metamyelocytes) > 1% indicates that a LEFT SHIFT is Present. Performed By: #### L 101.9900, L501.6710, L100.0100, L500.2500 #### [facility] [address] [place], [address] Lymphocytes/100 WBC (Bld) 26.1 % Normal 19-41 [facility] Comment on above: Performed By: #### L 101.9900, L501.6710, L100.0100, L500.2500 #### [facility] [address] [place], [address] MCH (RBC) [Entitic mass] 30.3 pg Normal 27.0-32.0 [facility] Comment on above: Performed By: #### L 101.9900, L501.6710, L100.0100, L500.2500 #### [facility] [address] [place], [address] MCHC (RBC) [Mass/Vol] 32.3 g/dL Normal 32-36 [facility] Comment on above: Performed By: #### L 101.9900, L501.6710, L100.0100, L500.2500 #### [facility] [address] [place], [address] MCV (RBC) [Entitic vol] 93.8 fL Normal 80-94 [facility] Comment on above: Performed By: #### L 101.9900, L501.6710, L100.0100, L500.2500 #### [facility] [address] [place], [address] Monocytes/100 WBC (Bld) 7.8 % Normal 0-10 [facility] Comment on above: Performed By: #### L 101.9900, L501.6710, L100.0100, L500.2500 #### [facility] [address] [place], [address] Neutrophils/100 WBC (Bld) 61.0 % Normal 47-70 [facility] Comment on above: Performed By: #### L 101.9900, L501.6710, L100.0100, L500.2500 #### [facility] [address] [place], [address] Nucleated RBC (Bld) [#/Vol] 0 10*3/uL Normal 0-5 [facility] Comment on above: Performed By: #### L 101.9900, L501.6710, L100.0100, L500.2500 #### [facility] [address] [place], [address] Platelet mean volume (Bld) [Entitic vol] 9.4 fL Normal 6.2-12.0 [facility] Comment on above: Performed By: #### L 101.9900, L501.6710, L100.0100, L500.2500 #### [facility] [address] [place], [address] Platelets (Bld) [#/Vol] 117 10*3/uL Low 150-450 [facility] Comment on above: Performed By: #### L 101.9900, L501.6710, L100.0100, L500.2500 #### [facility] [address] [place], [address] RBC (Bld) [#/Vol] 4.36 10*6/uL Low 4.6-6.2 [facility] Comment on above: Performed By: #### L 101.9900, L501.6710, L100.0100, L500.2500 #### [facility] [address] [place], [address] RDW SD 50.6 fl High 35.1-43.9 [facility] Comment on above: Performed By: #### L 101.9900, L501.6710, L100.0100, L500.2500 #### [facility] [address] [place], [address] WBC (Bld) [#/Vol] 6.2 10*3/uL Normal 4.4-11.0 [facility] Comment on above: Performed By: #### L 101.9900, L501.6710, L100.0100, L500.2500 #### [facility] [address] [place], [address] Comprehensive Metabolic [facility] 10-14-2024 Albumin [Mass/Vol] 3.4 g/dL Normal 3.4-4.8 [facility] Comment on above: Performed By: #### L 101.9900, L501.6710, L100.0100, L500.2500 #### [facility] [address] [place], [address] Albumin/Globulin [Mass ratio] 1.0 {ratio} Normal 0.9-2.4 [facility] Comment on above: Performed By: #### L 101.9900, L501.6710, L100.0100, L500.2500 #### [facility] [address] [place], [address] ALK PHOS 76 U/L Normal 40-129 [facility] Comment on above: Performed By: #### L 101.9900, L501.6710, L100.0100, L500.2500 #### [facility] [address] [place], [address] ALT [Catalytic activity/Vol] 14 U/L Normal <=46 [facility] Comment on above: Performed By: #### L 101.9900, L501.6710, L100.0100, L500.2500 #### [facility] [address] [place], [address] AST [Catalytic activity/Vol] 27 U/L Normal <=37 [facility] Comment on above: Result Comment: Hemo lysis present, Results??could be affected. ?? Performed By: #### L 101.9900, L501.6710, L100.0100, L500.2500 #### [facility] [address] [place], [address] Bilirubin [Mass/Vol] 0.50 mg/dL Normal 0.00-1.30 [facility] Comment on above: Performed By: #### L 101.9900, L501.6710, L100.0100, L500.2500 #### [facility] [address] [place], [address] BUN/CRE 11.8 RATIO Normal 10-20 [facility] Comment on above: Performed By: #### L 101.9900, L501.6710, L100.0100, L500.2500 #### [facility] [address] [place], [address] Calcium [Mass/Vol] 8.4 mg/dL Normal 7.6-11.0 [facility] Comment on above: Performed By: #### L 101.9900, L501.6710, L100.0100, L500.2500 #### [facility] [address] [place], [address] Chloride [Moles/Vol] 105 mmol/L Normal 98-108 [facility] Comment on above: Performed By: #### L 101.9900, L501.6710, L100.0100, L500.2500 #### [facility] [address] [place], [address] CO2 [Moles/Vol] 19.8 mmol/L Low 21.0-32.0 [facility] Comment on above: Performed By: #### L 101.9900, L501.6710, L100.0100, L500.2500 #### [facility] [address] [place], [address] Creatinine [Mass/Vol] 1.63 mg/dL High 0.70-1.20 [facility] Comment on above: Performed By: #### L 101.9900, L501.6710, L100.0100, L500.2500 #### [facility] [address] [place], [address] ECRCL 54.22 ml/min Normal 50-250 [facility] Comment on above: Performed By: #### L 101.9900, L501.6710, L100.0100, L500.2500 #### [facility] [address] [place], [address] GAP 12 Normal 5-15 [facility] Comment on above: Performed By: #### L 101.9900, L501.6710, L100.0100, L500.2500 #### [facility] [address] [place], [address] GFR/1.73 sq M.predicted among non-blacks MDRD (S/P/Bld) [Vol rate/Area] 44 mL/min/{1.73_m2} Low >60 [facility] Comment on above: Result Comment: mL/m in/1.73m2 CKD-EPI Creatinine Equation (2020) Performed By: #### L 101.9900, L501.6710, L100.0100, L500.2500 #### [facility] [address] [place], [address] Globulin (S) [Mass/Vol] 3.4 g/dL Normal 2.2-4.2 [facility] Comment on above: Performed By: #### L 101.9900, L501.6710, L100.0100, L500.2500 #### [facility] [address] [place], [address] Glucose [Mass/Vol] 128 mg/dL High 70-99 [facility] Comment on above: Performed By: #### L 101.9900, L501.6710, L100.0100, L500.2500 #### [facility] [address] [place], [address] Potassium [Moles/Vol] 4.3 mmol/L Normal 3.3-5.1 [facility] Comment on above: Result Comment: Hemo lysis present, Results??could be affected. ?? Performed By: #### L 101.9900, L501.6710, L100.0100, L500.2500 #### [facility] [address] [place], [address] Sodium [Moles/Vol] 136 mmol/L Normal 133-145 [facility] Comment on above: Performed By: #### L 101.9900, L501.6710, L100.0100, L500.2500 #### [facility] [address] [place], [address] T PROT 6.8 g/dL Normal 5.9-8.4 [facility] Comment on above: Performed By: #### L 101.9900, L501.6710, L100.0100, L500.2500 #### [facility] [address] [place], [address] Urea nitrogen [Mass/Vol] 19 mg/dL Normal 4-19 [facility] Comment on above: Performed By: #### L 101.9900, L501.6710, L100.0100, L500.2500 #### [facility] [address] [place], [address] Laboratory - Chemistry and C hemistry - challengeOrdered By: Bisi Rivera on 10-14-2024 AST [Catalytic activity/Vol] 27 U/L <38 [facility] Comment on above: Hemolysis present, R esults could be affected. Lactic Acidon 10-14-2024 Lactate [Moles/Vol] 1.6 mmol/L Normal 0.0-2.0 [facility] Comment on above: Performed By: #### L 101.9900, L501.6710, L100.0100, L500.2500 #### [facility] [address] [place], [address] Lactic acid measurementOrder ed By: Nick Coyle on 10-14-2024 Lactate [Moles/Vol] 1.6 mmol/L 0.0-2.0 [facility] Magnesiumon 10-14-2024 Magnesium [Mass/Vol] 1.9 mg/dL Normal 1.5-2.2 [facility] Comment on above: Performed By: #### L 101.9900, L501.6710, L100.0100, L500.2500 #### [facility] [address] [place], [address] Magnesium measurement (mass/ volume)Ordered By: Bisi Rivera on 10-14-2024 Magnesium (Unsp spec) [Mass/Vol] 1.9 mg/dL 1.5-2.2 [facility] Phosphoruson 10-14-2024 Phosphate [Mass/Vol] 2.9 mg/dL Normal 2.7-4.5 [facility] Comment on above: Performed By: #### L 101.9900, L501.6710, L100.0100, L500.2500 #### [facility] [address] [place], [address] Serum globulin measurementOr dered By: Bisi Rivera on 10-14-2024 Globulin (S) [Mass/Vol] 3.4 g/dL 2.2-4.2 [facility] Serum or plasma alanine wylie otransferase (ALT) measurementOrdered By: Bisi Rivera on 10-14-2024 ALT [Catalytic activity/Vol] 14 U/L <47 [facility] Serum or plasma albumin maricel urement (mass/volume)Ordered By: Bisi Rivera on 10-14-2024 Albumin [Mass/Vol] 3.4 g/dL 3.4-4.8 [facility] Serum or plasma albumin/glob ulin mass ratioOrdered By: Bisi Rivera on 10-14-2024 Albumin/Globulin [Mass ratio] 1.0 {ratio} 0.9-2.4 [facility] Serum or plasma alkaline ivan sphatase measurementOrdered By: Bisi Rivera on 10-14-2024 ALP [Catalytic activity/Vol] 76 U/L 40-129 [facility] Total proteinOrdered By: Hyun Rivera on 10-14-2024 Protein [Mass/Vol] 6.8 g/dL 5.9-8.4 [facility] Abdomen/Pelvis without Conto n 10-13-2024 Abdomen/Pelvis without Cont [facility] Services [address] [place], [place] [address] Abdomen/Pelvis without Cont MR#: [id number] Acct: [id number] Name: CHARLI PORRAS Rep #: [id number] : 1950 M 74 From: Cy Mckeon MD PCP: ABHISHE[facility] Status: REG ER Study: Abdomen/Pelvis without Cont Date of Exam: 10/02 06/28 Exam# [id number] Ordering Dr: Nick Coyle DO PROCEDURE: ABDOMEN/PELVIS WITHOUT CONT 10/13/2024 REASON FOR EXAM: PAIN TECHNIQUE: Abdomen and pelvis CT without intravenous contrast. Noncontrast technique limits evaluation of the abdominal and pelvic viscera. Coronal and Sagittal reconstruction series were provided. One or more dose reduction techniques were used (e.g., Automated exposure control, adjustment of the mA and/or kV according to patient size, use of iterative reconstruction technique). PATIENT PREPARATION: Per protocol ORAL CONTRAST TYPE: None. COMPARISON: None. FINDINGS: The peripheral soft tissues are unremarkable. Degenerative changes of the spine. Mild atherosclerosis. Normal caliber abdominal aorta. IVC filter is present within the caval lumen. The liver is unremarkable. The gallbladder is absent. The pancreas, spleen, and adrenals are unremarkable. Bilateral kidney atrophy. No hydronephrosis. Urinary bladder wall thickening. Normal caliber large and small bowel. Dense colonic stool. CT/Abdomen/Pelvis without Cont IMPRESSION: Urinary bladder wall thickening which may represent detrusor muscle hypertrophy or cystitis. Correlate with urinalysis. Dense colonic stool which may suggest constipation. IVC filter. If not actively managed by Interventional Radiology, consider consult. Reading Location: [id number] CC: MELY DUARTE; Dr. 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 Normal [facility] Absolute lymphocyte countOrd ered By: Nick Coyle on 10-13-2024 Lymphocytes Auto (Unsp spec) [#/Vol] 1.75 10*3/uL 0.83-4.51 [facility] Absolute neutrophil countOrd ered By: Nick Coyle on 10-13-2024 Neutrophils (Bld) [#/Vol] 5.5 10*3/uL 2.0-7.7 [facility] Anion gap in Serum or Plasma Ordered By: Nick Coyle on 10-13-2024 Anion gap [Moles/Vol] 15 mmol/L 5-15 [facility] Automated lymphocyte count a s percentage of total leukocytesOrdered By: Nick Coyle on 10-13-2024 Lymphocytes/100 WBC Auto (Unsp spec) 21.5 % 19-41 [facility] BUN/creatinine ratioOrdered By: Nick Coyle on 10-13-2024 Urea nitrogen/Creatinine [Mass ratio] 10.7 mg/mg 10- [facility] Basic Metabolic Profile (BMP )on 10-13-2024 BUN/CRE 10.7 RATIO Normal - [facility] Comment on above: Performed By: #### L 101.9900, L501.6710, L100.0100, L500.2500 #### [facility] [address] [place], [address] Calcium [Mass/Vol] 8.9 mg/dL Normal 7.6-11.0 [facility] Comment on above: Performed By: #### L 101.9900, L501.6710, L100.0100, L500.2500 #### [facility] [address] [place], [address] Chloride [Moles/Vol] 101 mmol/L Normal 98-108 [facility] Comment on above: Performed By: #### L 101.9900, L501.6710, L100.0100, L500.2500 #### [facility] [address] [place], [address] CO2 [Moles/Vol] 19.3 mmol/L Low 21.0-32.0 [facility] Comment on above: Performed By: #### L 101.9900, L501.6710, L100.0100, L500.2500 #### [facility] [address] [place], [address] Creatinine [Mass/Vol] 1.96 mg/dL High 0.70-1.20 [facility] Comment on above: Performed By: #### L 101.9900, L501.6710, L100.0100, L500.2500 #### [facility] [address] [place], [address] ECRCL 44.76 ml/min Low 50-250 [facility] Comment on above: Performed By: #### L 101.9900, L501.6710, L100.0100, L500.2500 #### [facility] [address] [place], [address] GAP 15 Normal 5-15 [facility] Comment on above: Performed By: #### L 101.9900, L501.6710, L100.0100, L500.2500 #### [facility] [address] [place], [address] GFR/1.73 sq M.predicted among non-blacks MDRD (S/P/Bld) [Vol rate/Area] 35 mL/min/{1.73_m2} Low >60 [facility] Comment on above: Result Comment: mL/m in/1.73m2 CKD-EPI Creatinine Equation (2020) Performed By: #### L 101.9900, L501.6710, L100.0100, L500.2500 #### [facility] [address] [place], [address] Glucose [Mass/Vol] 239 mg/dL High 70-99 [facility] Comment on above: Performed By: #### L 101.9900, L501.6710, L100.0100, L500.2500 #### [facility] [address] [place], [address] Potassium [Moles/Vol] 4.3 mmol/L Normal 3.3-5.1 [facility] Comment on above: Performed By: #### L 101.9900, L501.6710, L100.0100, L500.2500 #### [facility] [address] [place], [address] Sodium [Moles/Vol] 135 mmol/L Normal 133-145 [facility] Comment on above: Performed By: #### L 101.9900, L501.6710, L100.0100, L500.2500 #### [facility] [address] [place], [address] Urea nitrogen [Mass/Vol] 21 mg/dL High 4-19 [facility] Comment on above: Performed By: #### L 101.9900, L501.6710, L100.0100, L500.2500 #### [facility] [address] [place], [address] Basophil percentageOrdered B y: Nick Coyle on 10-13-2024 Basophils/100 WBC (Bld) 0.9 % 0-1 [facility] Bilirubin Test strip Ql (U)O rdered By: Nick Coyle on 10-13-2024 Bilirubin Ql (U) Negative Negative [facility] Blood cultureOrdered By: Ousmane Coyle on 10-13-2024 Bacteria identified Cx Nom (Bld) No growth in 5 days. [facility] CBC W/Diff, Automatedon 10-02 Absolute Lymph 1.75 X10 3/uL Normal 0.83-4.51 [facility] Comment on above: Performed By: #### L 101.9900, L501.6710, L100.0100, L500.2500 #### [facility] [address] [place], [address] Absolute Neut 5.5 X10 3/uL Normal 2.0-7.7 [facility] Comment on above: Performed By: #### L 101.9900, L501.6710, L100.0100, L500.2500 #### [facility] [address] [place], [address] Basophils/100 WBC (Bld) 0.9 % Normal 0-1 [facility] Comment on above: Performed By: #### L 101.9900, L501.6710, L100.0100, L500.2500 #### [facility] [address] [place], [address] Eosinophils/100 WBC (Bld) 2.9 % Normal 0-5 [facility] Comment on above: Performed By: #### L 101.9900, L501.6710, L100.0100, L500.2500 #### [facility] [address] [place], [address] Erythrocyte distribution width (RBC) [Ratio] 14.6 % Normal 11.6-14.6 [facility] Comment on above: Performed By: #### L 101.9900, L501.6710, L100.0100, L500.2500 #### [facility] [address] [place], [address] Hematocrit (Bld) [Volume fraction] 42.8 % Normal 40-54 [facility] Comment on above: Performed By: #### L 101.9900, L501.6710, L100.0100, L500.2500 #### [facility] [address] [place], [address] Hemoglobin (Bld) [Mass/Vol] 14.0 g/dL Normal 13.0-16.5 [facility] Comment on above: Performed By: #### L 101.9900, L501.6710, L100.0100, L500.2500 #### [facility] [address] [place], [address] IG% 1.000 High 0.0-0.9 [facility] Comment on above: Result Comment: IG% - Immature Granulocytes (promyelocytes, myelocytes and metamyelocytes) > 1% indicates that a LEFT SHIFT is Present. Performed By: #### L 101.9900, L501.6710, L100.0100, L500.2500 #### [facility] [address] [place], [address] Lymphocytes/100 WBC (Bld) 21.5 % Normal 19-41 [facility] Comment on above: Performed By: #### L 101.9900, L501.6710, L100.0100, L500.2500 #### [facility] [address] [place], [address] MCH (RBC) [Entitic mass] 30.5 pg Normal 27.0-32.0 [facility] Comment on above: Performed By: #### L 101.9900, L501.6710, L100.0100, L500.2500 #### [facility] [address] [place], [address] MCHC (RBC) [Mass/Vol] 32.7 g/dL Normal 32-36 [facility] Comment on above: Performed By: #### L 101.9900, L501.6710, L100.0100, L500.2500 #### [facility] [address] [place], [address] MCV (RBC) [Entitic vol] 93.2 fL Normal 80-94 [facility] Comment on above: Performed By: #### L 101.9900, L501.6710, L100.0100, L500.2500 #### [facility] [address] [place], [address] Monocytes/100 WBC (Bld) 6.6 % Normal 0-10 [facility] Comment on above: Performed By: #### L 101.9900, L501.6710, L100.0100, L500.2500 #### [facility] [address] [place], [address] Neutrophils/100 WBC (Bld) 67.1 % Normal 47-70 [facility] Comment on above: Performed By: #### L 101.9900, L501.6710, L100.0100, L500.2500 #### [facility] [address] [place], [address] Nucleated RBC (Bld) [#/Vol] 0 10*3/uL Normal 0-5 [facility] Comment on above: Performed By: #### L 101.9900, L501.6710, L100.0100, L500.2500 #### [facility] [address] [place], [address] Platelet mean volume (Bld) [Entitic vol] 9.1 fL Normal 6.2-12.0 [facility] Comment on above: Performed By: #### L 101.9900, L501.6710, L100.0100, L500.2500 #### [facility] [address] [place], [address] Platelets (Bld) [#/Vol] 142 10*3/uL Low 150-450 [facility] Comment on above: Performed By: #### L 101.9900, L501.6710, L100.0100, L500.2500 #### [facility] [address] [place], [address] RBC (Bld) [#/Vol] 4.59 10*6/uL Low 4.6-6.2 [facility] Comment on above: Performed By: #### L 101.9900, L501.6710, L100.0100, L500.2500 #### [facility] [address] [place], [address] RDW SD 50.2 fl High 35.1-43.9 [facility] Comment on above: Performed By: #### L 101.9900, L501.6710, L100.0100, L500.2500 #### [facility] [address] [place], [address] WBC (Bld) [#/Vol] 8.1 10*3/uL Normal 4.4-11.0 [facility] Comment on above: Performed By: #### L 101.9900, L501.6710, L100.0100, L500.2500 #### [facility] [address] [place], [address] Carbon dioxide, total [Moles /volume] in Central venous bloodOrdered By: Nick Coyle on 10-13-2024 CO2 [Moles/Vol] 19.3 mmol/L Low 21.0-32.0 [facility] Chloride assayOrdered By: Cecil Coyle on 10-13-2024 Chloride [Moles/Vol] 101 mmol/L 98-108 [facility] Emergency Department Summary on 10-13-2024 Emergency Department Summary [facility] Medical Records Department [address] [place] [address] Emergency Department Summary 10/13/24 MR#: [id number] Acct: [id number] Name: CHARLI PORRAS Rep #: [id number] : 1950 74 From: Nick Coyle DO PCP: ABHISHE[facility] Status:REG ER Location: ED HPI History of Present Illness Chief Complaint: Complaint Narrative Narrative: Chief complaint and HPI: Delirium and UTI. 74-year-old male with past medical history of dementia, DM2, CKD, HTN, recurrent UTIs presents for evaluation with for delirium and UTI. states that the patient is mostly bedbound to home. She bathes him and has care providers visit patient in the home. She states that he gets recurrent UTIs. He started develop a fever several days ago in which the PCP did a urine which was positive and placed the patient on ciprofloxacin. states that his fevers improved until today. She states that he is also having intermittent delirium where he saw a schoolbus on the wall. She states that this is not his baseline. She called the PCP who recommended him coming to the emergency department. She did show me a text message in which the culture grew out Pseudomonas however no sensitivities. Patient denies any abdominal pain, nausea, vomiting, dysuria, hematuria. states that he has been making urine and eating and drinking. Review of systems: See HPI Medications: As listed on the chart Allergies: As listed on the chart PFSH: Per chart Vital signs: As listed on the chart. Reviewed. Physical exam: Gen: A O x3, NAD Head: Normocephalic, atraumatic Eyes: No sclera icterus, conjunctiva clear, PERRL ENT: Moist mucous membranes CV: RRR, no murmurs Resp: Lungs CTA BL, no w/r/c GI: Large body habitus, abd soft, non-distended, non-tender, no r/r/g : No CVA tenderness. Circumcised penis. No penile tenderness or discharge. No penile or testicular swelling. Normal lie and position of the testicles. No testicular tenderness, masses, or skin changes. Musc: Moves all extremity Skin: Warm, dry Neuro: Alert, oriented, grossly intact, sensation intact Psych: Cooperative [facility] Medical History Kidney disease Gout Dementia Diabetes HTN (hypertension) Home Medications ???Medication ???Instructions ???Recorded ???Last Taken ???Type allopurinol 100 mg tablet 100 mg PO DAILYCM 05/03/13 Unknown History gabapentin 800 mg tablet 800 mg PO TIDCM 05/03/13 Unknown H istory hcxeohwm-nry-ehshs acid 0.4 1 ea PO DAILY 05/03/13 Unknown His tory mg-lycopene 300 mcg-lutein 250 mcg tablet (Centrum Silver) donepezil 10 mg tablet 10 mg PO [...] 03/18/24 Unknown Hi story release 24 hr levothyroxine 50 mcg tablet 50 mcg PO DAILY 03/18/24 Unknown H istory lisinopril 2.5 mg tablet 2.5 mg PO DAILY 03/18/24 Unknown H istory pramipexole 0.125 mg tablet 0.125 mg PO BID 03/18/24 Unknown H istory quetiapine 50 mg tablet 50 mg PO DAILY 03/18/24 Unknown Hi story tramadol 50 mg tablet 50 mg PO 4X/DAY pain 03/18/24 Unkn own History cefdinir 300 mg capsule 300 mg PO BID 4 days #8 caps 08/23 Unknown Rx tizanidine 2 mg tablet 4 mg (2 x 2 mg) PO QPM PRN muscle 08/23/24 Unknown Rx spasms #0 tabs trazodone 50 mg tablet 50 mg PO DAILY@1700 #0 tabs Unknown Rx trazodone 50 mg tablet 50 mg PO QHS #0 tabs 08/23/24 Unkn own Rx insulin glargine 100 unit/mL (3 75 unit subcut QPM 10/13/24 Unknow n History mL) subcutaneous pen (Basaglar KwikPen U-100 Insulin) Allergy/AdvReac Type Severity Reaction Status Date / Time ibuprofen AdvReac Abd Verified 10/13/24 17:49 cramps/diarrhea Surgical History History of left shoulder replacement H/O knee surgery Social History Smoking Status: Never smoker EXAM Physical Exam Const Vital Signs: 10/13/24 17:47 10/13/24 20:29 10/13/24 21:00 Temperature 98 F 97.6 F L 97.8 F Temperature Source Oral Oral Oral Pulse Rate 84 87 73 Respiratory Rate 16 18 16 Blood Pressure 116/60 114/71 137/72 H Blood Pressure Mean 78 85 93 Pulse Ox 97 96 96 Oxygen Delivery Method Room Air Room Air Room Air 10/13/24 22:00 10/13/24 23:00 Temperatur (more content not included)... Normal [facility] Eosinophil percentageOrdered By: Nick Coyle on 10-13-2024 Eosinophils/100 WBC (Bld) 2.9 % 0-5 [facility] Erythrocyte distribution wid th ratioOrdered By: Nick Coyle on 10-13-2024 Erythrocyte distribution width (RBC) [Ratio] 14.6 % 11.6-14.6 [facility] Erythrocyte distribution wid th standard deviationOrdered By: Nick Kledy Ortiz on 10-13-2024 Erythrocyte distribution width (RBC) [Ratio] 50.2 fl High 35.1-43.9 [facility] Glomerular filtration rate ( GFR) estimation/1.73 sq m using serum, plasma, or whole bOrdered By: Nick Coyle on 10-13-2024 GFR/1.73 sq M.predicted among non-blacks MDRD (S/P/Bld) [Vol rate/Area] 35 mL/min/{1.73_m2} Low >60 [facility] Comment on above: mL/min/1.73m2 CKD-EP I Creatinine Equation (2020) H AND P Exam - [facility] 10-13-2024 H&P Exam - Hospitalist [facility] Medical Records Department [address] [place] [address] H P Exam - Hospitalist 10/13/24 2344 MR#: [id number] Acct: [id number] Name: CHARLI PORRAS Rep #: [id number] : 1950 74 From: Bisi Rivera DO PCP: ABHISHEK [facility] Status:ADM IN Location: [place] [id number] HPI - General General Date of Admission: 10/13/24 Date of Service: 10/13/24 Chief Complaint: Altered mental status with recent UTI diagnosis HPI Narrative CHARLI PORRAS, is a 74 M who presented to the emergency department at [facility] on 10/13/2024 with his due to altered mental status. Patient was recently diagnosed with urinary tract infection and placed on outpatient ciprofloxacin. He was evaluated by his PCP several days ago and was placed on ciprofloxacin at that time. His indicated that she felt his fevers had improved but he relapsed today and is having intermittent altered mental status and hallucinations as well as some generalized weakness. Patient is did show the ER physician a text message which demonstrated Pseudomonas however sensitivities were not identified at that time. Patient states he has been urinating and eating and drinking okay. Denies any nausea or vomiting. Patient is relatively bedbound at baseline. He denies wearing CPAP nocturnally. Vital signs on presentation showed a temperature of 98, heart rate 84, respiratory 16, blood pressure 116/60 and pulse ox is 97% on room air. CBC on presentation shows a normal white count with no anemia. There is no left shift. His CO2 is less than 20 and his BUN is 20 one of his serum creatinine of 1.96 (baseline fluctuates but lately has been between 1.4 and 1.9). Glucose was 239 and lactic acid was 3.7. His UA is suggestive of infection and dehydration with specific gravity of 1.02 he has occult blood, leuk esterase, white cells but no bacteria present however he has been on antibiotics as noted above. CT of the abdomen pelvis was performed and shows urinary bladder wall thickening, dense colonic stool and an IVC filter. He was given IV fluids and placed on Zosyn x 1 dose. He does meet sepsis criteria with an elevated lactic acid and the low serum bicarb with altered mental status so sepsis protocol was initiated with conservative fluid bolus given concern for volume overload[facility] History CKD (chronic kidney disease), stage III Insulin dependent diabetes mellitus Dementia Kidney disease Gout Dementia Diabetes HTN (hypertension) Home Medications ???Medication ???Instructions ???Recorded ???Last Taken ???Type allopurinol 100 mg tablet 100 mg PO DAILYCM 05/03/13 Unknown History gabapentin 800 mg tablet 800 mg PO TIDCM 05/03/13 Unknown H istory nkeebozm-bkd-nqpie acid 0.4 1 ea PO DAILY 05/03/13 Unknown His tory mg-lycopene 300 mcg-lutein 250 mcg tablet (Centrum Silver) donepezil 10 mg tablet 10 mg PO [...] 03/18/24 Unknown Hi story release 24 hr levothyroxine 50 mcg tablet 50 mcg PO DAILY 03/18/24 Unknown H istory lisinopril 2.5 mg tablet 2.5 mg PO DAILY 03/18/24 Unknown H istory pramipexole 0.125 mg tablet 0.125 mg PO BID 03/18/24 Unknown H istory quetiapine 50 mg tablet 50 mg PO DAILY 03/18/24 Unknown Hi story tramadol 50 mg tablet 50 mg PO 4X/DAY pain 03/18/24 Unkn own History cefdinir 300 mg capsule 300 mg PO BID 4 days #8 caps 08/23 Unknown Rx tizanidine 2 mg tablet 4 mg (2 x 2 mg) PO QPM PRN muscle 08/23/24 Unknown Rx spasms #0 tabs trazodone 50 mg tablet 50 mg PO DAILY@1700 #0 tabs Unknown Rx trazodone 50 mg tablet 50 mg PO QHS #0 tabs 08/23/24 Unkn own Rx insulin glargine 100 unit/mL (3 75 unit subcut QPM 10/13/24 Unknow n History mL) subcutaneous pen (Basaglar KwikPen U-100 Insulin) Allergy/AdvReac Type Severity Reaction Status Date / Time ibuprofen AdvReac Abd Verified 10/13/24 17:49 cramps/diarrhea unable to obtain Surgical History History of left shoulder replacement H/O knee surgery Social History (Updated 10/14/24 @ 01:[address] Bisi Rivera DO) household members: spouse housing: house current occupational status: retired Smoking Status: Never smoker alcohol intake: never substance use type: does not use ROS Constitutional C (more content not included)... Normal [facility] Hematocrit Auto (Bld) [Volum e fraction]Ordered By: Nick Coyle on 10-13-2024 Hematocrit (Bld) [Volume fraction] 42.8 % 40-54 [facility] Hemoglobin measurementOrdere d By: Nick Coyle on 10-13-2024 Hemoglobin (Bld) [Mass/Vol] 14.0 g/dL 13.0-16.5 [facility] Immature granulocytes/100 WB C Auto (Bld)Ordered By: Nick Coyle on 10-13-2024 Immature granulocytes/100 WBC (Bld) 1.000 % High 0.0-0.9 [facility] Comment on above: IG% - Immature Granu locytes (promyelocytes, myelocytes and metamyelocytes) > 1% indicates that a LEFT SHIFT is Present. Ketones Test strip Ql (U)Ord ered By: Nick Coyle on 10-13-2024 Ketones Ql (U) Negative Negative [facility] Lactic Acidon 10-13-2024 Lactate [Moles/Vol] 3.7 mmol/L Invalid Interpretation Code 0.0-2.0 [facility] Comment on above: Order Comment: Y Result Comment: Crit ical Result(s) Called EFINK at: 2118 by: CORAL??Results read back by same. Performed By: #### L 101.9900, L501.6710, L100.0100, L500.2500 #### [facility] [address] [place] [address]. [place], [place], [id number] MCV (mean corpuscular volume ) determinationOrdered By: Nick Coyle on 10-13-2024 MCV (RBC) [Entitic vol] 93.2 fL 80-94 [facility] Mean corpuscular hemoglobin (MCH) determinationOrdered By: Nick Leonides on 10-13-2024 MCH (RBC) [Entitic mass] 30.5 pg 27.0-32.0 [facility] Mean corpuscular hemoglobin concentration (MCHC) determinationOrdered By: Nick Coyle on 10-13-2024 MCHC (RBC) [Mass/Vol] 32.7 g/dL 32-36 [facility] Mean platelet volume determi nationOrdered By: Nick Coyle on 10-13-2024 Platelet mean volume (Bld) [Entitic vol] 9.1 fL 6.2-12.0 [facility] Microscopic analysis of urin e for red blood cells (RBC)Ordered By: Nick Coyle on 10-13-2024 Microscopic analysis of urine for red blood cells (RBC) 0 SEEN /hpf 0-5 [facility] Monocyte percentageOrdered B y: Nick Coyle on 10-13-2024 Monocytes/100 WBC (Bld) 6.6 % 0-10 [facility] Mucus LM Ql (Urine sed)Order ed By: Nick Coyle on 10-13-2024 Mucus Ql (Urine sed) 0 SEEN /hpf [facility] Neutrophil percentageOrdered By: Nick Coyle on 10-13-2024 Neutrophils/100 WBC (Bld) 67.1 % 47-70 [facility] Nitrite Test strip Ql (U)Ord ered By: Nick Coyle on 10-13-2024 Nitrite Ql (U) Negative Negative [facility] Nucleated red blood cell per centageOrdered By: Nick Coyle on 10-13-2024 Nucleated RBC/100 WBC (Bld) [Ratio] 0 % 0-5 [facility] Platelet countOrdered By: Cecil Coyle on 10-13-2024 Platelets (Bld) [#/Vol] 142 10*3/uL Low 150-450 [facility] Potassium measurement (mass/ volume)Ordered By: Nick Coyle on 10-13-2024 Potassium (Unsp spec) [Mass/Vol] 4.3 mmol/L 3.3-5.1 [facility] Protein Test strip Ql (U)Ord ered By: Nick Coyle on 10-13-2024 Protein Ql (U) 100 mg/dl High Negative [facility] RBC Auto (Bld) [#/Vol]Ordere d By: Nick Coyle on 10-13-2024 RBC (Bld) [#/Vol] 4.59 10*6/uL Low 4.6-6.2 [facility] Serum creatinine measurement (mass/volume)Ordered By: Nick Coyle on 10-13-2024 Creatinine [Mass/Vol] 1.96 mg/dL High 0.70-1.20 [facility] Serum glucose measurement (m ass/volume)Ordered By: Nick Coyle on 10-13-2024 Glucose [Mass/Vol] 239 mg/dL High 70-99 [facility] Serum or plasma calcium maricel urement (mass/volume)Ordered By: Nick Ortiz on 10-13-2024 Calcium [Mass/Vol] 8.9 mg/dL 7.6-11.0 [facility] Serum or plasma urea nitroge n measurement (mass/volume)Ordered By: Nick Coyle on 10-13-2024 Urea nitrogen [Mass/Vol] 21 mg/dL High 4-19 [facility] Sodium levelOrdered By: Kvng Coyle on 10-13-2024 Sodium [Moles/Vol] 135 mmol/L 133-145 [facility] Squamous epithelial cells de tection in urine sediment by light microscopyOrdered By: Nick Coyle on 10-13-2024 Epithelial cells.squamous LM Ql (Urine sed) 0 SEEN /hpf 0-5 [facility] Urinalysis, Completeon 10-13 WBC >100 SEEN Normal 0-5 [facility] Comment on above: Order Comment: CLEAN CATCH Result Comment: Micr oscopic field is filled. Other elements may be obscured. Performed By: #### L 501.080 #### [facility] [address] [place], [place], [id number] ([address] BACTERIA 0 SEEN Normal None Seen [facility] Comment on above: Order Comment: CLEAN CATCH Performed By: #### L 501.080 #### [facility] [address] [place], [address] EPI,SQUAMOUS 0 SEEN Normal 0-5 [facility] Comment on above: Order Comment: CLEAN CATCH Performed By: #### L 501.080 #### [facility] [address] [place], [address] Mucus Ql (Urine sed) 0 SEEN Normal [facility] Comment on above: Order Comment: CLEAN CATCH Performed By: #### L 501.080 #### [facility] [address] [place], [place], [address] RBC 0 SEEN Normal 0-5 [facility] Comment on above: Order Comment: CLEAN CATCH Performed By: #### L 501.080 #### [facility] [address] [place], [address] Urine clarityOrdered By: Ousmane Coyle on 10-13-2024 Clarity (U) Turbid Clear [facility] Urine color determinationOrd ered By: Nick Coyle on 10-13-2024 Color (U) Yellow Yellow [facility] Urine cultureOrdered By: Ousmane Coyle on 10-13-2024 Bacteria identified Cx Nom (U) Yeast, not Callie albicans Abnormal [facility] Urine glucose detectionOrder ed By: Nick Coyle on 10-13-2024 Glucose Ql (U) 1000 mg/dl High Normal [facility] Urine leukocyte esterase det ection by dipstickOrdered By: Nick Coyle on 10-13-2024 Leukocyte esterase Test strip Ql (U) 500 /ul High Negative [facility] Urine pHOrdered By: Nick Resendiz on 10-13-2024 pH (U) 6.0 [pH] 5.0 - 8.0 [facility] Urine sediment bacteria coun t by microscopy (number/high power field)Ordered By: Nick Coyle on 10-13-2024 Bacteria LM.HPF (Urine sed) [#/Area] 0 /[HPF] None Seen [facility] Urine specific gravity measu rementOrdered By: Nick Coyle on 10-13-2024 Specific gravity (U) [Rel density] 1.020 1.002-1.030 [facility] Urine urobilinogen measureme ntOrdered By: Nick Coyle on 10-13-2024 Urobilinogen Ql (U) Normal mg/dl Normal [facility] White blood cell (WBC) count Ordered By: Nick Coyle on 10-13-2024 WBC (Bld) [#/Vol] 8.1 10*3/uL 4.4-11.0 [facility] White blood cell countOrdere d By: Nick Coyle on 10-13-2024 White blood cell count >100 SEEN /hpf 0-5 [facility] Comment on above: Microscopic field is filled. Other elements may be obscured. Culture, Blood (WB)on 2024 CUB Blood cultures x2, from two different sites No growth in 5 days. Normal [facility] Comment on above: Performed By: #### L 501.080 #### [facility] [address] [place], [address] Basic Metabolic Profile (BMP )on 08-24-2024 BUN Normal 4-19 [facility] Comment on above: Result Comment: Canc elled via OM: Order cancelled - Patient discharged Performed By: #### L 501.080 #### [facility] [address] [place], [address] BUN/CRE Normal 10-20 [facility] Comment on above: Result Comment: Canc elled via OM: Order cancelled - Patient discharged Performed By: #### L 501.080 #### [facility] [address] [place], [address] Calcium Normal 7.6-11.0 [facility] Comment on above: Result Comment: Canc elled via OM: Order cancelled - Patient discharged Performed By: #### L 501.080 #### [facility] [address] [place], [address] CL Normal 98-108 [facility] Comment on above: Result Comment: Canc elled via OM: Order cancelled - Patient discharged Performed By: #### L 501.080 #### [facility] [address] [place], [address] CO2 Normal 21.0-32.0 [facility] Comment on above: Result Comment: Canc elled via OM: Order cancelled - Patient discharged Performed By: #### L 501.080 #### [facility] [address] [place], [address] CREAT,SERUM Normal 0.70-1.20 [facility] Comment on above: Result Comment: Canc elled via OM: Order cancelled - Patient discharged Performed By: #### L 501.080 #### [facility] [address] [place], [address] eGFR Normal >60 [facility] Comment on above: Result Comment: Canc elled via OM: Order cancelled - Patient discharged Performed By: #### L 501.080 #### [facility] [address] [place], [address] GAP Normal 5-15 [facility] Comment on above: Result Comment: Canc elled via OM: Order cancelled - Patient discharged Performed By: #### L 501.080 #### [facility] [address] [place], [address] GLU Normal 70-99 [facility] Comment on above: Result Comment: Canc elled via OM: Order cancelled - Patient discharged Performed By: #### L 501.080 #### [facility] [address] [place], [address] Potassium Normal 3.3-5.1 [facility] Comment on above: Result Comment: Canc elled via OM: Order cancelled - Patient discharged Performed By: #### L 501.080 #### [facility] [address] [place], [address] Basic Metabolic Profile (BMP) Normal 133-145 [facility] Comment on above: Result Comment: Canc elled via OM: Order cancelled - Patient discharged Performed By: #### L 501.080 #### [facility] [address] [place], [address] CBC W/Diff, Automatedon 04-2 Absolute Neut Normal 2.0-7.7 [facility] Comment on above: Result Comment: Canc elled via OM: Order cancelled - Patient discharged Performed By: #### L 501.080 #### [facility] [address] [place], [address] HCT Normal 40-54 [facility] Comment on above: Result Comment: Canc elled via OM: Order cancelled - Patient discharged Performed By: #### L 501.080 #### [facility] [address] [place], [address] HGB Normal 13.0-16.5 [facility] Comment on above: Result Comment: Canc elled via OM: Order cancelled - Patient discharged Performed By: #### L 501.080 #### [facility] [address] [place], [address] MCH Normal 27.0-32.0 [facility] Comment on above: Result Comment: Canc elled via OM: Order cancelled - Patient discharged Performed By: #### L 501.080 #### [facility] [address] [place], [address] MCHC Normal 32-36 [facility] Comment on above: Result Comment: Canc elled via OM: Order cancelled - Patient discharged Performed By: #### L 501.080 #### [facility] [address] [place], [address] MCV Normal 80-94 [facility] Comment on above: Result Comment: Canc elled via OM: Order cancelled - Patient discharged Performed By: #### L 501.080 #### [facility] [address] [place], [address] NEUT% Normal 47-70 [facility] Comment on above: Result Comment: Canc elled via OM: Order cancelled - Patient discharged Performed By: #### L 501.080 #### [facility] [address] [place], [address] PLT Normal 150-450 [facility] Comment on above: Result Comment: Canc elled via OM: Order cancelled - Patient discharged Performed By: #### L 501.080 #### [facility] [address] [place], [address] RBC Normal 4.6-6.2 [facility] Comment on above: Result Comment: Canc elled via OM: Order cancelled - Patient discharged Performed By: #### L 501.080 #### [facility] [address] [place], [address] RDW CV Normal 11.6-14.6 [facility] Comment on above: Result Comment: Canc elled via OM: Order cancelled - Patient discharged Performed By: #### L 501.080 #### [facility] [address] [place], [address] RDW SD Normal 35.1-43.9 [facility] Comment on above: Result Comment: Canc elled via OM: Order cancelled - Patient discharged Performed By: #### L 501.080 #### [facility] [address] [place], [address] WBC Normal 4.4-11.0 [facility] Comment on above: Result Comment: Canc elled via OM: Order cancelled - Patient discharged Performed By: #### L 501.080 #### [facility] [address] [place], [address] Absolute lymphocyte countOrd ered By: Mao Muse on 08-23-2024 Lymphocytes Auto (Unsp spec) [#/Vol] 1.69 10*3/uL 0.83-4.51 [facility] Absolute neutrophil countOrd ered By: Mao Muse on 08-23-2024 Neutrophils (Bld) [#/Vol] 3.3 10*3/uL 2.0-7.7 [facility] Anion gap in Serum or Plasma Ordered By: Mao Muse on 08-23-2024 Anion gap [Moles/Vol] 10 mmol/L 5-15 [facility] Automated lymphocyte count a s percentage of total leukocytesOrdered By: Mao Muse on 08-23-2024 Lymphocytes/100 WBC Auto (Unsp spec) 28.5 % 19-41 [facility] BUN/creatinine ratioOrdered By: Mao Muse on 08-23-2024 Urea nitrogen/Creatinine [Mass ratio] 9.0 mg/mg Low 10-20 [facility] Basic Metabolic Profile (BMP )on 08-23-2024 BUN/CRE 9.0 RATIO Low - [facility] Comment on above: Performed By: #### L 509.7001, L300.4310, M200.1000, L503.6005, L300.3900, L500.4050, L100.0100 #### [facility] [address] [place], [address] Calcium [Mass/Vol] 8.6 mg/dL Normal 7.6-11.0 [facility] Comment on above: Performed By: #### L 509.7001, L300.4310, M200.1000, L503.6005, L300.3900, L500.4050, L100.0100 #### [facility] [address] [place], [address] Chloride [Moles/Vol] 105 mmol/L Normal 98-108 [facility] Comment on above: Performed By: #### L 509.7001, L300.4310, M200.1000, L503.6005, L300.3900, L500.4050, L100.0100 #### [facility] [address] [place], [address] CO2 [Moles/Vol] 21.6 mmol/L Normal 21.0-32.0 [facility] Comment on above: Performed By: #### L 509.7001, L300.4310, M200.1000, L503.6005, L300.3900, L500.4050, L100.0100 #### [facility] [address] [place], [address] Creatinine [Mass/Vol] 1.46 mg/dL High 0.70-1.20 [facility] Comment on above: Performed By: #### L 509.7001, L300.4310, M200.1000, L503.6005, L300.3900, L500.4050, L100.0100 #### [facility] [address] [place], [address] ECRCL 61.10 ml/min Normal 50-250 [facility] Comment on above: Performed By: #### L 509.7001, L300.4310, M200.1000, L503.6005, L300.3900, L500.4050, L100.0100 #### [facility] [address] [place], [address] GAP 10 Normal 5-15 [facility] Comment on above: Performed By: #### L 509.7001, L300.4310, M200.1000, L503.6005, L300.3900, L500.4050, L100.0100 #### [facility] [address] [place], [address] GFR/1.73 sq M.predicted among non-blacks MDRD (S/P/Bld) [Vol rate/Area] 50 mL/min/{1.73_m2} Low >60 [facility] Comment on above: Result Comment: mL/m in/1.73m2 CKD-EPI Creatinine Equation (2020) Performed By: #### L 509.7001, L300.4310, M200.1000, L503.6005, L300.3900, L500.4050, L100.0100 #### [facility] [address] [place], [address] Glucose [Mass/Vol] 159 mg/dL High 70-99 [facility] Comment on above: Performed By: #### L 509.7001, L300.4310, M200.1000, L503.6005, L300.3900, L500.4050, L100.0100 #### [facility] [address] [place], [address] Potassium [Moles/Vol] 4.0 mmol/L Normal 3.3-5.1 [facility] Comment on above: Performed By: #### L 509.7001, L300.4310, M200.1000, L503.6005, L300.3900, L500.4050, L100.0100 #### [facility] [address] [place], [address] Sodium [Moles/Vol] 136 mmol/L Normal 133-145 [facility] Comment on above: Performed By: #### L 509.7001, L300.4310, M200.1000, L503.6005, L300.3900, L500.4050, L100.0100 #### [facility] [address] [place], [address] Urea nitrogen [Mass/Vol] 13 mg/dL Normal 4-19 [facility] Comment on above: Performed By: #### L 509.7001, L300.4310, M200.1000, L503.6005, L300.3900, L500.4050, L100.0100 #### [facility] [address] [place], [address] Basophil percentageOrdered B y: Mao Muse on 08-23-2024 Basophils/100 WBC (Bld) 1.0 % 0-1 [facility] Bedside Glucoseon 08-23-2024 FINGERSTICK GLU 178 mg/dL High 74-106 [facility] Comment on above: Result Comment: NITZA NGUYEN OF PATIENT CARE PER NURSING PROTOCOL Performed By: #### L 101.9900, L501.6710, L100.0100, L500.2500 #### [facility] [address] [place], [address] FINGERSTICK GLU 148 mg/dL High 74-106 [facility] Comment on above: Result Comment: NITZA NGUYEN OF PATIENT CARE PER NURSING PROTOCOL Performed By: #### L 101.9900, L501.6710, L100.0100, L500.2500 #### [facility] [address] [place], [address] CBC W/Diff, Automatedon 08-03 Absolute Lymph 1.69 X10 3/uL Normal 0.83-4.51 [facility] Comment on above: Performed By: #### L 101.9900, L501.6710, L100.0100, L500.2500 #### [facility] [address] [place], [address] Absolute Neut 3.3 X10 3/uL Normal 2.0-7.7 [facility] Comment on above: Performed By: #### L 101.9900, L501.6710, L100.0100, L500.2500 #### [facility] [address] [place], [address] Basophils/100 WBC (Bld) 1.0 % Normal 0-1 [facility] [facility] Comment on above: Performed By: #### L 101.9900, L501.6710, L100.0100, L500.2500 #### [facility] [address] [place], [address] Eosinophils/100 WBC (Bld) 5.1 % High 0-5 [facility] Comment on above: Performed By: #### L 101.9900, L501.6710, L100.0100, L500.2500 #### [facility] [address] [place], [address] Erythrocyte distribution width (RBC) [Ratio] 14.8 % High 11.6-14.6 [facility] Comment on above: Performed By: #### L 101.9900, L501.6710, L100.0100, L500.2500 #### [facility] [address] [place], [address] Hematocrit (Bld) [Volume fraction] 35.5 % Low 40-54 [facility] Comment on above: Performed By: #### L 101.9900, L501.6710, L100.0100, L500.2500 #### [facility] [address] [place], [address] Hemoglobin (Bld) [Mass/Vol] 11.7 g/dL Low 13.0-16.5 [facility] Comment on above: Performed By: #### L 101.9900, L501.6710, L100.0100, L500.2500 #### [facility] [address] [place], [address] IG% 1.000 High 0.0-0.9 [facility] Comment on above: Result Comment: IG% - Immature Granulocytes (promyelocytes, myelocytes and metamyelocytes) > 1% indicates that a LEFT SHIFT is Present. Performed By: #### L 101.9900, L501.6710, L100.0100, L500.2500 #### [facility] [address] [place], [address] Lymphocytes/100 WBC (Bld) 28.5 % Normal 19-41 [facility] Comment on above: Performed By: #### L 101.9900, L501.6710, L100.0100, L500.2500 #### [facility] [address] [place], [address] MCH (RBC) [Entitic mass] 30.9 pg Normal 27.0-32.0 [facility] Comment on above: Performed By: #### L 101.9900, L501.6710, L100.0100, L500.2500 #### [facility] [address] [place], [address] MCHC (RBC) [Mass/Vol] 33.0 g/dL Normal 32-36 [facility] Comment on above: Performed By: #### L 101.9900, L501.6710, L100.0100, L500.2500 #### [facility] [address] [place], [address] MCV (RBC) [Entitic vol] 93.7 fL Normal 80-94 [facility] Comment on above: Performed By: #### L 101.9900, L501.6710, L100.0100, L500.2500 #### [facility] [address] [place], [address] Monocytes/100 WBC (Bld) 8.1 % Normal 0-10 [facility] Comment on above: Performed By: #### L 101.9900, L501.6710, L100.0100, L500.2500 #### [facility] [address] [place], [address] Neutrophils/100 WBC (Bld) 56.3 % Normal 47-70 [facility] Comment on above: Performed By: #### L 101.9900, L501.6710, L100.0100, L500.2500 #### [facility] [address] [place], [address] Nucleated RBC (Bld) [#/Vol] 0 10*3/uL Normal 0-5 [facility] Comment on above: Performed By: #### L 101.9900, L501.6710, L100.0100, L500.2500 #### [facility] [address] [place], [address] Platelet mean volume (Bld) [Entitic vol] 8.8 fL Normal 6.2-12.0 [facility] Comment on above: Performed By: #### L 101.9900, L501.6710, L100.0100, L500.2500 #### [facility] [address] [place], [address] Platelets (Bld) [#/Vol] 103 10*3/uL Low 150-450 [facility] Comment on above: Performed By: #### L 101.9900, L501.6710, L100.0100, L500.2500 #### [facility] [address] [place], [address] RBC (Bld) [#/Vol] 3.79 10*6/uL Low 4.6-6.2 [facility] Comment on above: Performed By: #### L 101.9900, L501.6710, L100.0100, L500.2500 #### [facility] [address] [place], [address] RDW SD 50.6 fl High 35.1-43.9 [facility] Comment on above: Performed By: #### L 101.9900, L501.6710, L100.0100, L500.2500 #### [facility] [address] [place], [address] WBC (Bld) [#/Vol] 5.9 10*3/uL Normal 4.4-11.0 [facility] Comment on above: Performed By: #### L 101.9900, L501.6710, L100.0100, L500.2500 #### [facility] [address] [place], [address] Carbon dioxide, total [Moles /volume] in Central venous bloodOrdered By: Mao Muse on 08-23-2024 CO2 [Moles/Vol] 21.6 mmol/L 21.0-32.0 [facility] Chloride assayOrdered By: Aarti Muse on 08-23-2024 Chloride [Moles/Vol] 105 mmol/L 98-108 [facility] Discharge Instructionon 08-03 Discharge Instruction [facility] Medical Records Department [address] [place] [address] Instructions for Home/Discharge Instructions 08/23/24 0847 MR#: [id number] Acct: [id number] Name: CHARLI PORRAS Rep #: [id number] : 1950 74 From: Mao Muse MD [...] MD; Dr. Tello Borrego MD Signed Normal [facility] Eosinophil percentageOrdered By: Mao Muse on 08-23-2024 Eosinophils/100 WBC (Bld) 5.1 % High 0-5 [facility] Erythrocyte distribution wid th ratioOrdered By: Mao Muse on 08-23-2024 Erythrocyte distribution width (RBC) [Ratio] 14.8 % High 11.6-14.6 [facility] Erythrocyte distribution wid th standard deviationOrdered By: Mao Muse on 08-23-2024 Erythrocyte distribution width (RBC) [Ratio] 50.6 fl High 35.1-43.9 [facility] Glomerular filtration rate ( GFR) estimation/1.73 sq m using serum, plasma, or whole bOrdered By: Mao Muse on 08-23-2024 GFR/1.73 sq M.predicted among non-blacks MDRD (S/P/Bld) [Vol rate/Area] 50 mL/min/{1.73_m2} Low >60 [facility] Comment on above: mL/min/1.73m2 CKD-EP I Creatinine Equation (2020) [facility] deOrdered By: Mao Muse on 08-23-2024 Glucose [Mass/Vol] 178 mg/dL High 74-106 [facility] Comment on above: MANAGEMENT OF PATIEN T CARE PER NURSING PROTOCOL Hematocrit Auto (Bld) [Volum e fraction]Ordered By: Mao Muse on 08-23-2024 Hematocrit (Bld) [Volume fraction] 35.5 % Low 40-54 [facility] Hemoglobin measurementOrdere d By: Mao Muse on 08-23-2024 Hemoglobin (Bld) [Mass/Vol] 11.7 g/dL Low 13.0-16.5 [facility] Immature granulocytes/100 WB C Auto (Bld)Ordered By: Mao Muse on 08-23-2024 Immature granulocytes/100 WBC (Bld) 1.000 % High 0.0-0.9 [facility] Comment on above: IG% - Immature Granu locytes (promyelocytes, myelocytes and metamyelocytes) > 1% indicates that a LEFT SHIFT is Present. MCV (mean corpuscular volume ) determinationOrdered By: Mao Muse on 08-23-2024 MCV (RBC) [Entitic vol] 93.7 fL 80-94 [facility] Mean corpuscular hemoglobin (MCH) determinationOrdered By: Mao Muse 08-23-2024 MCH (RBC) [Entitic mass] 30.9 pg 27.0-32.0 [facility] Mean corpuscular hemoglobin concentration (MCHC) determinationOrdered By: Mao Muse on 08-23-2024 MCHC (RBC) [Mass/Vol] 33.0 g/dL 32-36 [facility] Mean platelet volume determi nationOrdered By: Mao Muse on 08-23-2024 Platelet mean volume (Bld) [Entitic vol] 8.8 fL 6.2-12.0 [facility] Monocyte percentageOrdered B y: Mao Muse on 08-23-2024 Monocytes/100 WBC (Bld) 8.1 % 0-10 [facility] Neutrophil percentageOrdered By: Mao Muse on 08-23-2024 Neutrophils/100 WBC (Bld) 56.3 % 47-70 [facility] Nucleated red blood cell per centageOrdered By: Mao Muse on 08-23-2024 Nucleated RBC/100 WBC (Bld) [Ratio] 0 % 0-5 [facility] Platelet countOrdered By: Aarti Muse on 08-23-2024 Platelets (Bld) [#/Vol] 103 10*3/uL Low 150-450 [facility] Potassium measurement (mass/ volume)Ordered By: Mao Muse on 08-23-2024 Potassium (Unsp spec) [Mass/Vol] 4.0 mmol/L 3.3-5.1 [facility] Protein+Creatinine Ratio,Uri neon 08-23-2024 PROT:CRE RATIO 718 mg/g CRE High 0-200 [facility] Comment on above: Performed By: #### L 501.0900 #### [facility] [address] [place], [address] Protein (U) [Mass/Vol] 44.6 mg/dL High 0.0-12.0 [facility] Comment on above: Performed By: #### L 501.0900 #### [facility] [address] [place], [address] UR CREAT 62.10 mg/dL Normal 39.00-259.0 0 [facility] Comment on above: Performed By: #### L 501.0900 #### [facility] [address] [place], [address] RBC Auto (Bld) [#/Vol]Ordere d By: Mao Muse on 08-23-2024 RBC (Bld) [#/Vol] 3.79 10*6/uL Low 4.6-6.2 [facility] Serum creatinine measurement (mass/volume)Ordered By: Mao Muse on 08-23-2024 Creatinine [Mass/Vol] 1.46 mg/dL High 0.70-1.20 [facility] Serum glucose measurement (m ass/volume)Ordered By: Mao Muse on 08-23-2024 Glucose [Mass/Vol] 159 mg/dL High 70-99 [facility] Serum or plasma calcium maricel urement (mass/volume)Ordered By: Mao Muse on 08-23-2024 Calcium [Mass/Vol] 8.6 mg/dL 7.6-11.0 [facility] Serum or plasma urea nitroge n measurement (mass/volume)Ordered By: Mao Muse on 08-23-2024 Urea nitrogen [Mass/Vol] 13 mg/dL 4-19 [facility] Sodium levelOrdered By: Ericka Muse on 08-23-2024 Sodium [Moles/Vol] 136 mmol/L 133-145 [facility] Urine Cultureon 08-23-2024 URC Below infection leve l. Urine Culture Further studies to follow. Yeast Like Organism Daykin Count 1000-10,000 Mixed Gram Positive Organisms Mixed Gram Positive Organisms MIXC Mixed contaminants. Submit a new specimen if indicated. Normal [facility] Comment on above: Performed By: #### L 101.9900, L501.6710, L100.0100, L500.2500 #### [facility] [address] [place], [address] White blood cell (WBC) count Ordered By: Mao Muse on 08-23-2024 WBC (Bld) [#/Vol] 5.9 10*3/uL 4.4-11.0 [facility] Bedside Glucoseon 08-22-2024 FINGERSTICK GLU 206 mg/dL High 74-106 [facility] Comment on above: Result Comment: NITZA GEMENT OF PATIENT CARE PER NURSING PROTOCOL Performed By: #### L 501.080 #### [facility] [address] [place] [place], [address] FINGERSTICK GLU 194 mg/dL High 74-106 [facility] Comment on above: Result Comment: NITZA GEMENT OF PATIENT CARE PER NURSING PROTOCOL Performed By: #### L 101.9900, L501.6710, L100.0100, L500.2500 #### [facility] [address] [place], [address] FINGERSTICK GLU 178 mg/dL High [facility]106 [facility] Comment on above: Result Comment: NITZA GEMENT OF PATIENT CARE PER NURSING PROTOCOL Performed By: #### L 501.080 #### [facility] [address] [place], [address] FINGERSTICK GLU 160 mg/dL High [facility]106 [facility] Comment on above: Result Comment: NITZA GEMENT OF PATIENT CARE PER NURSING PROTOCOL Performed By: #### L 101.9900, L501.6710, L100.0100, L500.2500 #### [facility] [address] [place], [address] Consultation - Infectious Dx on 08-22-2024 Consultation - Infectious Dx [facility] Medical Records Department [address] [place] [address] Consultation - Infectious Dx 08/22/24 1148 MR#: [id number] Acct: [id number] Name: CHARLI PORRAS Rep #: [id number] : 1950 74 From: Tello Borrego MD PCP: Care Physician,No Primary Status:ADM IN Location: [place] [address] Assessment Plan Assessment/Plan (1) Septic shock: PLAN: [...] performed and neg except as noted above[facility] Medical History Kidney disease Gout Dementia Diabetes HTN (hypertension) Home Medications ???Medication ???Instructions ???Recorded ???Last Taken ???Type allopurinol 100 mg tablet 100 mg PO DAILYCM 05/03/13 Unknown History gabapentin 800 mg tablet 800 mg PO TIDCM 05/03/13 Unknown H istory jnpxzxuj-srg-okyxt acid 0.4 1 ea PO DAILY 05/03/13 [...] CC: No Primary Care Physician Signed Normal [facility] Consultation - Nephrologyon 08-22-2024 Consultation - Nephrology [facility] Medical Records Department [address] [place] [address] Consultation - Nephrology 08/22/24 1531 MR#: [id number] Acct: [id number] Name: CHARLI PORRAS Rep #: [id number] : 1950 74 From: Cassy Stevenson MANAGER CASEKaruna PCP: ABH[facility] Status:DIS IN Location: [place] [address] Assessment Plan Assessment/Plan (1) MISTY (acute kidney [...] and had been following with nephrology in [place], [place]. Reviewing her recent serum creatinine trends: [...] is on hold. No acute indication for [facility]. Further orders forthcoming as hospitalization evolves, thank [...] patient has been following with nephrology in [facility]. They have not established with nephrology once moved to [facility] as patient is essentially homebound. 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 Patient does not take NSAIDs. No recent nausea or vomiting, no diarrhea PFSH Medical History Kidney disease Gout Dementia Diabetes HTN (hypertension) Home Medications ???Medication ???Instructions ???Recorded ???Last Taken ???Type allopurinol 100 mg tablet 100 mg PO DAILYCM 05/03/13 Unknown History gabapentin 800 mg tablet 800 mg PO TIDCM 05/03/13 Unknown H istory uyfjonlr-urp-hthxy acid 0.4 1 ea PO DAILY 05/03/13 [...] no apparen (more content not included)... Normal [facility] Random urine creatinine maricel urement (mass/volume)Ordered By: Cassy Stevenson on 08-22-2024 Creatinine Unsp time (U) [Mass/Vol] 62.10 mg/dL 39.00-259.0 0 [facility] Urine protein measurement (m ass/volume)Ordered By: Cassy Stevenson on 08-22-2024 Protein (U) [Mass/Vol] 44.6 mg/dL High 0.0-12.0 [facility] Urine protein/creatinine mas s ratioOrdered By: Cassy Stevenson on 08-22-2024 Protein/Creatinine (U) [Mass ratio] 718 mg/g CRE High 0-200 [facility] Basic Metabolic Profile (BMP )on 08-21-2024 BUN/CRE 10.9 RATIO Normal 02-20 [facility] Comment on above: Performed By: #### L 101.9900, L501.6710, L100.0100, L500.2500 #### [facility] [address] [place], [address] Calcium [Mass/Vol] 8.0 mg/dL Normal 7.6-11.0 [facility] Comment on above: Performed By: #### L 101.9900, L501.6710, L100.0100, L500.2500 #### [facility] [address] [place], [address] Chloride [Moles/Vol] 107 mmol/L Normal 98-108 [facility] Comment on above: Performed By: #### L 101.9900, L501.6710, L100.0100, L500.2500 #### [facility] [address] [place], [address] CO2 [Moles/Vol] 20.3 mmol/L Low 21.0-32.0 [facility] Comment on above: Performed By: #### L 101.9900, L501.6710, L100.0100, L500.2500 #### [facility] [address] [place], [address] Creatinine [Mass/Vol] 1.76 mg/dL High 0.70-1.20 [facility] Comment on above: Performed By: #### L 101.9900, L501.6710, L100.0100, L500.2500 #### [facility] [address] [place], [address] ECRCL 50.20 ml/min Normal 50-250 [facility] Comment on above: Performed By: #### L 101.9900, L501.6710, L100.0100, L500.2500 #### [facility] [address] [place], [address] GAP 10 Normal 5-15 [facility] Comment on above: Performed By: #### L 101.9900, L501.6710, L100.0100, L500.2500 #### [facility] [address] [place], [address] GFR/1.73 sq M.predicted among non-blacks MDRD (S/P/Bld) [Vol rate/Area] 40 mL/min/{1.73_m2} Low >60 [facility] Comment on above: Result Comment: mL/m in/1.73m2 CKD-EPI Creatinine Equation (2020) Performed By: #### L 101.9900, L501.6710, L100.0100, L500.2500 #### [facility] [address] [place], [address] Glucose [Mass/Vol] 144 mg/dL High 70-99 [facility] Comment on above: Performed By: #### L 101.9900, L501.6710, L100.0100, L500.2500 #### [facility] [address] [place], [address] Potassium [Moles/Vol] 4.2 mmol/L Normal 3.3-5.1 [facility] Comment on above: Performed By: #### L 101.9900, L501.6710, L100.0100, L500.2500 #### [facility] [address] [place], [address] Sodium [Moles/Vol] 137 mmol/L Normal 133-145 [facility] Comment on above: Performed By: #### L 101.9900, L501.6710, L100.0100, L500.2500 #### [facility] [address] [place], [address] Urea nitrogen [Mass/Vol] 19 mg/dL Normal 4-19 [facility] Comment on above: Performed By: #### L 101.9900, L501.6710, L100.0100, L500.2500 #### [facility] [address] [place], [address] Bedside Glucoseon 08-21-2024 FINGERSTICK GLU 254 mg/dL High 74-106 [facility] Comment on above: Result Comment: NITZA GEMENT OF PATIENT CARE PER NURSING PROTOCOL Performed By: #### L 101.9900, L501.6710, L100.0100, L500.2500 #### [facility] [address] [place], [address] FINGERSTICK GLU 203 mg/dL High 74-106 [facility] Comment on above: Result Comment: NITZA GEMENT OF PATIENT CARE PER NURSING PROTOCOL Performed By: #### L 501.080 #### [facility] [address] [place], [address] FINGERSTICK GLU 162 mg/dL High 74-106 [facility] Comment on above: Result Comment: NITZA GEMENT OF PATIENT CARE PER NURSING PROTOCOL Performed By: #### L 501.080 #### [facility] [address] [place], [address] CBC-Complete Blood Cnt No Di ffon 08-21-2024 Erythrocyte distribution width (RBC) [Ratio] 15.0 % High 11.6-14.6 [facility] Comment on above: Performed By: #### L 101.9900, L501.6710, L100.0100, L500.2500 #### [facility] [address] [place], [address] Hematocrit (Bld) [Volume fraction] 31.6 % Low 40-54 [facility] Comment on above: Performed By: #### L 101.9900, L501.6710, L100.0100, L500.2500 #### [facility] [address] [place], [address] Hemoglobin (Bld) [Mass/Vol] 10.7 g/dL Low 13.0-16.5 [facility] Comment on above: Performed By: #### L 101.9900, L501.6710, L100.0100, L500.2500 #### [facility] [address] [place], [address] MCH (RBC) [Entitic mass] 31.0 pg Normal 27.0-32.0 [facility] Comment on above: Performed By: #### L 101.9900, L501.6710, L100.0100, L500.2500 #### [facility] [address] [place], [address] MCHC (RBC) [Mass/Vol] 33.9 g/dL Normal 32-36 [facility] Comment on above: Performed By: #### L 101.9900, L501.6710, L100.0100, L500.2500 #### [facility] [address] [place], [address] MCV (RBC) [Entitic vol] 91.6 fL Normal 80-94 [facility] Comment on above: Performed By: #### L 101.9900, L501.6710, L100.0100, L500.2500 #### [facility] [address] [place], [address] Platelet mean volume (Bld) [Entitic vol] 8.7 fL Normal 6.2-12.0 [facility] Comment on above: Performed By: #### L 101.9900, L501.6710, L100.0100, L500.2500 #### [facility] [address] [place], [address] Platelets (Bld) [#/Vol] 103 10*3/uL Low 150-450 [facility] Comment on above: Performed By: #### L 101.9900, L501.6710, L100.0100, L500.2500 #### [facility] [address] [place], [address] RBC (Bld) [#/Vol] 3.45 10*6/uL Low 4.6-6.2 [facility] Comment on above: Performed By: #### L 101.9900, L501.6710, L100.0100, L500.2500 #### [facility] [address] [place], [address] RDW SD 50.4 fl High 35.1-43.9 [facility] Comment on above: Performed By: #### L 101.9900, L501.6710, L100.0100, L500.2500 #### [facility] [address] [place], [address] WBC (Bld) [#/Vol] 5.9 10*3/uL Normal 4.4-11.0 [facility] Comment on above: Performed By: #### L 101.9900, L501.6710, L100.0100, L500.2500 #### [facility] [address] [place], [address] 12 Lead EKGon 08-20-2024 12 [address] [facility] Cardiovascular Services [address] [address] 12 Lead EKG 08/20/24 0447 MR#: [id number] Acct: [id number] Name: CHARLI PORRAS Rep #: [id number] : 1950 74 From: Cliff Robledo MD Attending Dr: Dr. Mao Muse MD Status: ADM IN Ordering Dr: aMo Muse MD Date: 08/20/24 Location: U Sex: M C Admitted: 08/20/24 Test Reason : BRADYCARDIA Blood Pressure : */* mmHG Vent. Rate : 73 BPM Atrial Rate : 44 BPM P-R Int : * ms QRS Dur : 144 ms QT Int : 478 ms P-R-T Axes : * 2 110 degrees QTcB Int : 526 ms Normal sinus rhythm Left bundle branch block Abnormal ECG Confirmed by RICHARD KRUSE, CLIFF ([id number]), manager editorial LIZETH HAMMONDS ([id number]) on 08/22/2024 9:07:07 AM Referred By: OSWALDO Confirmed By: CLIFF ROBLEDO MD 08/22/24 0907 Date Cliff Robledo MD CC: Dr. Mao Muse MD; No Primary Care Physician Signed Normal [facility] Amorphous sediment detection in urine sediment by light microscopyOrdered By: Kaushik Brown on 08-20-2024 Amorphous sediment LM Ql (Urine sed) 1+ [facility] Basic Metabolic Profile (BMP )on 08-20-2024 BUN/CRE 10.5 RATIO Normal 10-20 [facility] Comment on above: Performed By: #### L 501.080 #### [facility] [address] [place], [address] Calcium [Mass/Vol] 7.7 mg/dL Normal 7.6-11.0 [facility] Comment on above: Performed By: #### L 501.080 #### [facility] [address] [place], [address] Chloride [Moles/Vol] 105 mmol/L Normal 98-108 [facility] Comment on above: Performed By: #### L 501.080 #### [facility] [address] [place], [address] CO2 [Moles/Vol] 21.3 mmol/L Normal 21.0-32.0 [facility] Comment on above: Performed By: #### L 501.080 #### [facility] [address] [place], [address] Creatinine [Mass/Vol] 1.89 mg/dL High 0.70-1.20 [facility] Comment on above: Performed By: #### L 501.080 #### [facility] [address] [place], [address] ECRCL 46.74 ml/min Low 50-250 [facility] Comment on above: Performed By: #### L 501.080 #### [facility] [address] [place], [address] GAP 9 Normal 5-15 [facility] Comment on above: Performed By: #### L 501.080 #### [facility] [address] [place], [address] GFR/1.73 sq M.predicted among non-blacks MDRD (S/P/Bld) [Vol rate/Area] 37 mL/min/{1.73_m2} Low >60 [facility] Comment on above: Result Comment: mL/m in/1.73m2 CKD-EPI Creatinine Equation (2020) Performed By: #### L 501.080 #### [facility] [address] [place], [address] Glucose [Mass/Vol] 212 mg/dL High 70-99 [facility] Comment on above: Performed By: #### L 501.080 #### [facility] [address] [place], [address] Potassium [Moles/Vol] 4.6 mmol/L Normal 3.3-5.1 [facility] Comment on above: Performed By: #### L 501.080 #### [facility] [address] [place], [address] Sodium [Moles/Vol] 135 mmol/L Normal 133-145 [facility] Comment on above: Performed By: #### L 501.080 #### [facility] [address] [place], [address] Urea nitrogen [Mass/Vol] 20 mg/dL High - [facility] Comment on above: Performed By: #### L 501.080 #### [facility] [address] [place], [address] Bedside Glucoseon 08-20-2024 FINGERSTICK GLU 203 mg/dL High 74-106 [facility] Comment on above: Result Comment: NITZA GEMENT OF PATIENT CARE PER NURSING PROTOCOL Performed By: #### L 501.080 #### [facility] [address] [place], [address] FINGERSTICK GLU 165 mg/dL High 74-106 [facility] Comment on above: Result Comment: NITZA GEMENT OF PATIENT CARE PER NURSING PROTOCOL Performed By: #### L 501.080 #### [facility] [address] [place], [address] FINGERSTICK GLU 181 mg/dL High 74-106 [facility] Comment on above: Result Comment: NITZA GEMENT OF PATIENT CARE PER NURSING PROTOCOL Performed By: #### L 501.080 #### [facility] [address] [place], [address] FINGERSTICK GLU 214 mg/dL High 74-106 [facility] Comment on above: Result Comment: NITZA GEMENT OF PATIENT CARE PER NURSING PROTOCOL Performed By: #### L 501.080 #### [facility] [address] [place], [address] Bilirubin Test strip Ql (U)O rdered By: Kaushik Brown on 08-20-2024 Bilirubin Ql (U) Negative Negative [facility] Blood cultureOrdered By: Juliano Brown on 08-20-2024 Bacteria identified Cx Nom (Bld) No growth in 5 days. [facility] CBC W/Diff, Automatedon - Absolute Lymph 0.55 X10 3/uL Low 0.83-4.51 [facility] Comment on above: Performed By: #### L 509.7001, L300.4310, M200.1000, L503.6005, L300.3900, L500.4050, L100.0100 #### [facility] [address] [place], [address] Absolute Neut 7.6 X10 3/uL Normal 2.0-7.7 [facility] Comment on above: Performed By: #### L 509.7001, L300.4310, M200.1000, L503.6005, L300.3900, L500.4050, L100.0100 #### [facility] [address] [place], [address] Basophils/100 WBC (Bld) 0.5 % Normal 0-1 [facility] Comment on above: Performed By: #### L 509.7001, L300.4310, M200.1000, L503.6005, L300.3900, L500.4050, L100.0100 #### [facility] [address] [place], [address] Eosinophils/100 WBC (Bld) 0.1 % Normal 0-5 [facility] Comment on above: Performed By: #### L 509.7001, L300.4310, M200.1000, L503.6005, L300.3900, L500.4050, L100.0100 #### [facility] [address] [place], [address] Erythrocyte distribution width (RBC) [Ratio] 14.6 % Normal 11.6-14.6 [facility] Comment on above: Performed By: #### L 509.7001, L300.4310, M200.1000, L503.6005, L300.3900, L500.4050, L100.0100 #### [facility] [address] [place], [address] Hematocrit (Bld) [Volume fraction] 37.4 % Low 40-54 [facility] Comment on above: Performed By: #### L 509.7001, L300.4310, M200.1000, L503.6005, L300.3900, L500.4050, L100.0100 #### [facility] [address] [place], [address] Hemoglobin (Bld) [Mass/Vol] 12.7 g/dL Low 13.0-16.5 [facility] Comment on above: Performed By: #### L 509.7001, L300.4310, M200.1000, L503.6005, L300.3900, L500.4050, L100.0100 #### [facility] [address] [place], [address] IG% 1.000 High 0.0-0.9 [facility] Comment on above: Result Comment: IG% - Immature Granulocytes (promyelocytes, myelocytes and metamyelocytes) > 1% indicates that a LEFT SHIFT is Present. Performed By: #### L 509.7001, L300.4310, M200.1000, L503.6005, L300.3900, L500.4050, L100.0100 #### [facility] [address] [place], [address] Lymphocytes/100 WBC (Bld) 6.3 % Low 19-41 [facility] Comment on above: Performed By: #### L 509.7001, L300.4310, M200.1000, L503.6005, L300.3900, L500.4050, L100.0100 #### [facility] [address] [place], [address] MCH (RBC) [Entitic mass] 31.1 pg Normal 27.0-32.0 [facility] Comment on above: Performed By: #### L 509.7001, L300.4310, M200.1000, L503.6005, L300.3900, L500.4050, L100.0100 #### [facility] [address] [place], [address] MCHC (RBC) [Mass/Vol] 34.0 g/dL Normal 32-36 [facility] Comment on above: Performed By: #### L 509.7001, L300.4310, M200.1000, L503.6005, L300.3900, L500.4050, L100.0100 #### [facility] [address] [place], [address] MCV (RBC) [Entitic vol] 91.7 fL Normal 80-94 [facility] Comment on above: Performed By: #### L 509.7001, L300.4310, M200.1000, L503.6005, L300.3900, L500.4050, L100.0100 #### [facility] [address] [place], [address] Monocytes/100 WBC (Bld) 4.9 % Normal 0-10 [facility] Comment on above: Performed By: #### L 509.7001, L300.4310, M200.1000, L503.6005, L300.3900, L500.4050, L100.0100 #### [facility] [address] [place] [place], [address] Neutrophils/100 WBC (Bld) 87.2 % High 47-70 [facility] Comment on above: Performed By: #### L 509.7001, L300.4310, M200.1000, L503.6005, L300.3900, L500.4050, L100.0100 #### [facility] [address] [place], [address] Nucleated RBC (Bld) [#/Vol] 0 10*3/uL Normal 0-5 [facility] Comment on above: Performed By: #### L 509.7001, L300.4310, M200.1000, L503.6005, L300.3900, L500.4050, L100.0100 #### [facility] [address] [place], [address] Platelet mean volume (Bld) [Entitic vol] 9.3 fL Normal 6.2-12.0 [facility] Comment on above: Performed By: #### L 509.7001, L300.4310, M200.1000, L503.6005, L300.3900, L500.4050, L100.0100 #### [facility] [address] [place], [address] Platelets (Bld) [#/Vol] 126 10*3/uL Low 150-450 [facility] Comment on above: Performed By: #### L 509.7001, L300.4310, M200.1000, L503.6005, L300.3900, L500.4050, L100.0100 #### [facility] [address] [place], [address] RBC (Bld) [#/Vol] 4.08 10*6/uL Low 4.6-6.2 [facility] Comment on above: Performed By: #### L 509.7001, L300.4310, M200.1000, L503.6005, L300.3900, L500.4050, L100.0100 #### [facility] [address] [place], [address] RDW SD 48.7 fl High 35.1-43.9 [facility] Comment on above: Performed By: #### L 509.7001, L300.4310, M200.1000, L503.6005, L300.3900, L500.4050, L100.0100 #### [facility] [address] [place], [address] WBC (Bld) [#/Vol] 8.7 10*3/uL Normal 4.4-11.0 [facility] Comment on above: Performed By: #### L 509.7001, L300.4310, M200.1000, L503.6005, L300.3900, L500.4050, L100.0100 #### [facility] [address] [facility] [place], [address] CTA Chest W/WO Contraston CTA Chest W/WO Contrast [facility] Imaging Services [address] [place] [address] CTA Chest W/WO Contrast MR#: [id number] Acct: [id number] Name: CHARLI PORRAS Rep #: [id number] : 1950 M 74 From: Tello Garcia MD PCP: Care Physician,No Primary Status: REG ER Study: CTA Chest W/WO Contrast Date of Exam: 08/20/24 Exam# [id number] Ordering Dr: Kaushik Brown DO PROCEDURE: CTA [...] inferior vena cava filter suggested on the tool planner views. Motion artifact significantly limits the evaluation. No large central or hilar saddle pulmonary embolism. Interlobar to subsegmental branches are not well evaluated. Thoracic aorta appears within limits. Three-vessel coronary calcification appears moderate. No pericardial or pleural effusion. Images of the upper abdomen appear unremarkable. Center Cross artifact from left shoulder replacement and anterior [...] Three-vessel coronary calcification appears moderate. 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, [address] Albumin/Globulin [Mass ratio] 1.1 {ratio} Normal 0.9-2.4 [facility] Comment on above: Performed By: #### L 501.080 #### [facility] [address] [place], [address] ALK PHOS 78 U/L Normal 40-129 [facility] Comment on above: Performed By: #### L 501.080 #### [facility] [address] [place], [address] ALT [Catalytic activity/Vol] 24 U/L Normal <=46 [facility] Comment on above: Performed By: #### L 501.080 #### [facility] [address] [place], [address] AST [Catalytic activity/Vol] 29 U/L Normal <=37 [facility] Comment on above: Performed By: #### L 501.080 #### [facility] [address] [place], [address] Bilirubin [Mass/Vol] 0.76 mg/dL Normal 0.00-1.30 [facility] Comment on above: Performed By: #### L 501.080 #### [facility] [address] [place], [address] BUN/CRE 9.2 RATIO Low 10-20 [facility] Comment on above: Performed By: #### L 501.080 #### [facility] [address] [place], [address] Calcium [Mass/Vol] 8.8 mg/dL Normal 7.6-11.0 [facility] Comment on above: Performed By: #### L 501.080 #### [facility] [address] [place], [address] Chloride [Moles/Vol] 100 mmol/L Normal 98-108 [facility] Comment on above: Performed By: #### L 501.080 #### [facility] [address] [place], [address] CO2 [Moles/Vol] 19.8 mmol/L Low 21.0-32.0 [facility] Comment on above: Performed By: #### L 501.080 #### [facility] [address] [place], [address] Creatinine [Mass/Vol] 1.90 mg/dL High 0.70-1.20 [facility] Comment on above: Performed By: #### L 501.080 #### [facility] [address] [place], [address] ECRCL 45.50 ml/min Low 50-250 [facility] Comment on above: Performed By: #### L 501.080 #### [facility] [address] [place], [address] GAP 14 Normal 5-15 [facility] Comment on above: Performed By: #### L 501.080 #### [facility] [address] [place], [address] GFR/1.73 sq M.predicted among non-blacks MDRD (S/P/Bld) [Vol rate/Area] 36 mL/min/{1.73_m2} Low >60 [facility] Comment on above: Result Comment: mL/m in/1.73m2 CKD-EPI Creatinine Equation (2020) Performed By: #### L 501.080 #### [facility] [address] [place], [address] Globulin (S) [Mass/Vol] 3.4 g/dL Normal 2.2-4.2 [facility] Comment on above: Performed By: #### L 501.080 #### [facility] [address] [place], [address] Glucose [Mass/Vol] 245 mg/dL High 70-99 [facility] Comment on above: Performed By: #### L 501.080 #### [facility] [address] [place], [address] Potassium [Moles/Vol] 5.3 mmol/L High 3.3-5.1 [facility] Comment on above: Performed By: #### L 501.080 #### [facility] [address] [place], [address] Sodium [Moles/Vol] 133 mmol/L Normal 133-145 [facility] Comment on above: Performed By: #### L 501.080 #### [facility] [address] [place], [address] T PROT 7.0 g/dL Normal 5.9-8.4 [facility] Comment on above: Performed By: #### L 501.080 #### [facility] [address] [place], [address] Urea nitrogen [Mass/Vol] 17 mg/dL Normal 4-19 [facility] Comment on above: Performed By: #### L 501.080 #### [facility] [address] [place], [address] Consultation - Intensiviston 08-20-2024 Consultation - Motion Picture Equipment Supervisor [facility] Medical Records Department [address] [place] [address] Consultation - Motion Picture Equipment Supervisor 08/20/24 0854 MR#: [id number] Acct: [id number] Name: CHARLI PORRAS Rep #: [id number] : 1950 74 From: Kaushik Sykes MD [...] renal stone in R, but no hydro. [facility] Medical History Kidney disease Gout Dementia Diabetes HTN (hypertension) Home Medications ???Medication ???Instructions ???Recorded ???Last Taken ???Type allopurinol 100 mg tablet 100 mg PO DAILYCM 05/03/13 Unknown History gabapentin 800 mg tablet 800 mg PO TIDCM 05/03/13 Unknown H istory pyxwlgkh-lch-mketm acid 0.4 1 ea PO DAILY 05/03/13 [...] Psychiatric: Denie (more content not included)... Normal [facility] Emergency Department Summary on 08-20-2024 Emergency Department Summary [facility] Medical Records Department [address] [place] [address] Emergency Department Summary 08/20/24 MR#: [id number] Acct: [id number] Name: CHARLI PORRAS Rep #: [id number] : 1950 74 From: Kaushik Brown DO [...] dementia he cannot offer any further history. [facility] Medical History Kidney disease Gout Dementia Diabetes HTN (hypertension) Home Medications ???Medication ???Instructions ???Recorded ???Last Taken ???Type allopurinol 100 mg tablet 100 mg PO DAILYCM 05/03/13 Unknown History gabapentin 800 mg tablet 800 mg PO TIDCM 05/03/13 Unknown H istory ptwoeaei-tnf-setgk acid 0.4 1 ea PO DAILY 05/03/13 [...] Source Core (more content not included)... Normal [facility] Epithelial cells.squamous LM Ql (Urine sed)Ordered By: Kaushik Brown on 08-20-2024 Epithelial cells.squamous LM.HPF (Urine sed) [#/Area] 0 /[HPF] 0-5 [facility] Glucose Ql (U)Ordered By: Dede Brown on 08-20-2024 Glucose (U) [Mass/Vol] 1000 mg/dL High Normal [facility] H AND P Exam - Hospitaliston 08-20-2024 H&P Exam - Hospitalist [facility] Medical Records Department [address] [place] [address] H P Exam - Hospitalist 08/20/24 0220 MR#: [id number] Acct: [id number] Name: CHARLI PORRAS Rep #: [id number] : 1950 74 From: Saroj Gutierrez DO PCP: Care Physician,No Primary Status:ADM IN Location: ICU ICU01-1 HPI - General General Date of Admission: 08/20/24 Date of Service: 08/20/24 Chief Complaint: Worsening confusion with tremors and weakness HPI Narrative CHARLI PORRAS, is a 74 M who presented to [facility] ED on 08/20/2024 with worsening confusion [...] and told me that he was at [facility]. However he could not answer any [...] patient being moved over to the ICU. [facility] Medical History Kidney disease Gout Dementia Diabetes HTN (hypertension) Home Medications ???Medication ???Instructions ???Recorded ???Last Taken ???Type allopurinol 100 mg tablet 100 mg PO DAILYCM 05/03/13 Unknown History gabapentin 800 mg tablet 800 mg PO TIDCM 05/03/13 Unknown H istory jptfgfha-nst-alhjq acid 0.4 1 ea PO DAILY 05/03/13 [...] replacement H/ (more content not included)... Normal [facility] Influenza virus A and B and SARS-CoV-2 (COVID-19) and Respiratory syncytial virus RNAOrdered By: Kaushik Brown on 08-20-2024 SARS-CoV-2 (COVID-19) RNA LIV+probe Ql (Unsp spec) [facility] Ketones Test strip Ql (U)Ord ered By: Kaushik Brown on 08-20-2024 Ketones Ql (U) 5 mg/dl High Negative [facility] Kidney and Bladderon 025 Kidney and Bladder [facility] Imaging Services [address] [place], [place] [id number] Kidney and Bladder MR#: [id number] Acct: [id number] Name: CHARLI PORRAS Jagjit Rep #: [id number] : 1950 M 74 From: Judy Brothers nd, MD PCP: Care Physician,No Primary Status: ADM IN Study: Kidney and Bladder Date of Exam: 08/20/24 Exam# [id number] Ordering Dr: Saroj Gutierrez DO PROCEDURE: KIDNEY AND BLADDER 08/20/2024 REASON FOR EXAM: UROSEPSIS, EVAL FOR PYELONEPHRITIS TECHNIQUE: Bilateral renal ultrasound. COMPARISON: None. FINDINGS: Kidneys: Tiny nonobstructing right midpole renal calculus. No left renal calculi. Cross: No hydronephrosis. Cysts or Masses: No cysts [...] nonobstructing right midpole renal calculus. Reading Location: [id number] CC: Dr. 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 Performed By: #### L 501.080 #### [facility] [place], [address] Lactic Acidon 08-20-2024 Lactate [Moles/Vol] 1.4 mmol/L Normal 0.0-2.0 [facility] Comment on above: Order Comment: Y Performed By: #### L 501.080 #### [facility] [address] [place], [place], [address] Lactate [Moles/Vol] 3.4 mmol/L Invalid Interpretation Code 0.0-2.0 [facility] Comment on above: Order Comment: Y Result Comment: Crit ical Result(s) Called at 0048: by: NBURNS TO LSPARR??Results read back by same. Performed By: #### L 501.080 #### [facility] [address] [place], [place], [address] Lactic acid measurementOrder ed By: Kaushik Sykes on 08-20-2024 Lactate [Moles/Vol] 1.4 mmol/L 0.0-2.0 [facility] M100.678on 08-20-2024 M100.678 SARS-CoV-2 (COVID 19 ) Negative INFLUENZA A Negative INFLUENZA B Negative RSV PCR Negative Normal [facility] Comment on above: Performed By: #### L 101.9900, L501.6710, L100.0100, L500.2500 #### [facility] [address] [place], [place], [address] Microscopic analysis of urin e for red blood cells (RBC)Ordered By: Kaushik Brown on 08-20-2024 Microscopic analysis of urine for red blood cells (RBC) > 100 SEEN /hpf 0-5 [facility] Urine RBC > 100 SEEN /hpf 0-5 [facility] Mucus LM Ql (Urine sed)Order ed By: Kaushik Brown on 08-20-2024 Mucus Ql (Urine sed) RARE /hpf [facility] Nitrite Test strip Ql (U)Ord ered By: Kaushik Brown on 08-20-2024 Nitrite Ql (U) Negative Negative [facility] Partial Thromboplast Timeon 08-20-2024 aPTT Coag (Bld) [Time] 32.3 s Normal 24.1-36.2 [facility] Comment on above: Performed By: #### L 501.080 #### [facility] [address] [place], [address] Protein Test strip Ql (U)Ord ered By: Kaushik Brown on 08-20-2024 Protein Ql (U) 100 mg/dl High Negative [facility] Prothrombin Time w/INRon INR Coag (PPP) [Relative time] 1.6 {INR} Normal [facility] Comment on above: Performed By: #### L 501.080 #### [facility] [address] [place], [address] PT Coag (PPP) [Time] 19.2 s High 11.7-14.9 [facility] Comment on above: Performed By: #### L 501.080 #### [facility] [address] [place], [address] Squamous epithelial cells de tection in urine sediment by light microscopyOrdered By: Kaushik Brown on 08-20-2024 Epithelial cells.squamous LM Ql (Urine sed) 0-5 SEEN /hpf 0-5 [facility] Urinalysis, Completeon 08-20 AMORPHOUS 1+ Normal [facility] Comment on above: Order Comment: COLOR OF URINE MAY AFFECT DIPSTICK RESULTS.CATHETER SPECIMEN Performed By: #### L 101.9900, L501.6710, L100.0100, L500.2500 #### [facility] [address] [place], [address] Mucus Ql (Urine sed) RARE Normal [facility] Comment on above: Order Comment: COLOR OF URINE MAY AFFECT DIPSTICK RESULTS.CATHETER SPECIMEN Performed By: #### L 101.9900, L501.6710, L100.0100, L500.2500 #### [facility] [address] [place], [address] BACTERIA 2+ /hpf Normal None Seen [facility] Comment on above: Order Comment: COLOR OF URINE MAY AFFECT DIPSTICK RESULTS.CATHETER SPECIMEN Performed By: #### L 101.9900, L501.6710, L100.0100, L500.2500 #### [facility] [address] [place], [address] EPI,SQUAMOUS 0-5 SEEN Normal 0-5 [facility] Comment on above: Order Comment: COLOR OF URINE MAY AFFECT DIPSTICK RESULTS.CATHETER SPECIMEN Performed By: #### L 101.9900, L501.6710, L100.0100, L500.2500 #### [facility] [address] [place], [address] RBC > 100 SEEN Normal 0-5 [facility] Comment on above: Order Comment: COLOR OF URINE MAY AFFECT DIPSTICK RESULTS.CATHETER SPECIMEN Performed By: #### L 101.9900, L501.6710, L100.0100, L500.2500 #### [facility] [address] [place], [address] WBC >100 SEEN Normal 0-5 [facility] Comment on above: Order Comment: COLOR OF URINE MAY AFFECT DIPSTICK RESULTS.CATHETER SPECIMEN Performed By: #### L 101.9900, L501.6710, L100.0100, L500.2500 #### [facility] [address] [place], [address] BILIRUBIN URINE Negative Normal Negative [facility] Comment on above: Order Comment: COLOR OF URINE MAY AFFECT DIPSTICK RESULTS.CATHETER SPECIMEN Performed By: #### L 101.9900, L501.6710, L100.0100, L500.2500 #### [facility] [address] [place], [address] Clarity (U) Cloudy Normal Clear [facility] Comment on above: Order Comment: COLOR OF URINE MAY AFFECT DIPSTICK RESULTS.CATHETER SPECIMEN Performed By: #### L 101.9900, L501.6710, L100.0100, L500.2500 #### [facility] [address] [place], [address] Color (U) Stephanie Normal Yellow [facility] Comment on above: Order Comment: COLOR OF URINE MAY AFFECT DIPSTICK RESULTS.CATHETER SPECIMEN Performed By: #### L 101.9900, L501.6710, L100.0100, L500.2500 #### [facility] [address] [place], [address] GLUCOSE, UR 1000 mg/dl Abnormal Normal [facility] Comment on above: Order Comment: COLOR OF URINE MAY AFFECT DIPSTICK RESULTS.CATHETER SPECIMEN Performed By: #### L 101.9900, L501.6710, L100.0100, L500.2500 #### [facility] [address] [place], [address] KETONE UR 5 mg/dl Abnormal Negative [facility] Comment on above: Order Comment: COLOR OF URINE MAY AFFECT DIPSTICK RESULTS.CATHETER SPECIMEN Performed By: #### L 101.9900, L501.6710, L100.0100, L500.2500 #### [facility] [address] [place], [address] LEUK ESTERASE 500 /ul Abnormal Negative [facility] Comment on above: Order Comment: COLOR OF URINE MAY AFFECT DIPSTICK RESULTS.CATHETER SPECIMEN Performed By: #### L 101.9900, L501.6710, L100.0100, L500.2500 #### [facility] [address] [place], [address] Nitrite Ql (U) Negative Normal Negative [facility] Comment on above: Order Comment: COLOR OF URINE MAY AFFECT DIPSTICK RESULTS.CATHETER SPECIMEN Performed By: #### L 101.9900, L501.6710, L100.0100, L500.2500 #### [facility] [address] [place], [address] OCCULT BLOOD-UR 250 /ul Abnormal Negative [facility] Comment on above: Order Comment: COLOR OF URINE MAY AFFECT DIPSTICK RESULTS.CATHETER SPECIMEN Performed By: #### L 101.9900, L501.6710, L100.0100, L500.2500 #### [facility] [address] [place], [address] pH UR 6.0 Normal 5.0 - 8.0 [facility] Comment on above: Order Comment: COLOR OF URINE MAY AFFECT DIPSTICK RESULTS.CATHETER SPECIMEN Performed By: #### L 101.9900, L501.6710, L100.0100, L500.2500 #### [facility] [address] [place], [address] PROT DIPSTX 100 mg/dl Abnormal Negative [facility] Comment on above: Order Comment: COLOR OF URINE MAY AFFECT DIPSTICK RESULTS.CATHETER SPECIMEN Performed By: #### L 101.9900, L501.6710, L100.0100, L500.2500 #### [facility] [address] [place], [address] SP.GR. DIPSTX 1.010 Normal 1.002-1.030 [facility] Comment on above: Order Comment: COLOR OF URINE MAY AFFECT DIPSTICK RESULTS.CATHETER SPECIMEN Performed By: #### L 101.9900, L501.6710, L100.0100, L500.2500 #### [facility] [address] [place], [address] UROBILI Normal Normal Normal [facility] Comment on above: Order Comment: COLOR OF URINE MAY AFFECT DIPSTICK RESULTS.CATHETER SPECIMEN Performed By: #### L 101.9900, L501.6710, L100.0100, L500.2500 #### [facility] [address] [place], [address] Urine blood detectionOrdered By: Kaushik Brown on 08-20-2024 Urine Occult Blood 250 /ul High Negative [facility] Urine clarityOrdered By: Juliano Brown on 08-20-2024 Clarity (U) Cloudy Clear [facility] Urine color determinationOrd ered By: Kaushik Brown on 08-20-2024 Color (U) Stephanie Yellow [facility] Urine cultureOrdered By: Juliano Brown on 08-20-2024 Bacteria identified Cx Nom (U) Yeast, not Callie albicans Abnormal [facility] Bacteria identified Cx Nom (U) Positive Abnormal [facility] Urine glucose detectionOrder ed By: Kaushik Brown on 08-20-2024 Glucose Ql (U) 1000 mg/dl High Normal [facility] Urine leukocyte esterase det ection by dipstickOrdered By: aKushik Brown on 08-20-2024 Leukocyte esterase Test strip Ql (U) 500 /ul High Negative [facility] Urine pHOrdered By: Kaushik morales on 08-20-2024 pH (U) 6.0 [pH] 5.0 - 8.0 [facility] Urine sediment bacteria coun t by microscopy (number/high power field)Ordered By: Kaushik Brown on 08-20-2024 Bacteria LM.HPF (Urine sed) [#/Area] 2 /[HPF] None Seen [facility] Urine specific gravity measu rementOrdered By: Kaushik Brown on 08-20-2024 Specific gravity (U) [Rel density] 1.010 1.002-1.030 [facility] Urine urobilinogen measureme ntOrdered By: Kaushik Brown on 08-20-2024 Urobilinogen Ql (U) Normal mg/dl Normal [facility] Urobilinogen Ql (U)Ordered B y: Kaushik Brown on 08-20-2024 Urine Urobilinogen Normal mg/dl Normal [facility] White blood cell countOrdere d By: Kaushik Brown on 08-20-2024 Urine WBC >100 SEEN /hpf 0-5 [facility] White blood cell count >100 SEEN /hpf 0-5 [facility] Absolute neutrophil countOrd ered By: Kaushik Brown on 08-19-2024 Neutrophils (Bld) [#/Vol] 7.6 10*3/uL 2.0-7.7 [facility] Activated partial thrombopla stin time (aPTT) in platelet poor plasma by coagulation aOrdered By: Kaushik Brown on 08-19-2024 aPTT Coag (PPP) [Time] 32.3 s 24.1-36.2 [facility] Anion gap in Serum or Plasma Ordered By: Kaushik Brown on 08-19-2024 Anion gap [Moles/Vol] 14 mmol/L 5-15 [facility] BUN/creatinine ratioOrdered By: Kaushik Brown on 08-19-2024 Urea nitrogen/Creatinine [Mass ratio] 9.2 mg/mg Low 10-20 [facility] Basophil percentageOrdered B y: Kaushik Brown on 08-19-2024 Basophils/100 WBC (Bld) 0.5 % 0-1 [facility] Bilirubin, totalOrdered By: Kaushik Brown on 08-19-2024 Bilirubin [Mass/Vol] 0.76 mg/dL 0.00-1.30 [facility] Blood cultureOrdered By: Juliano Brown on 08-19-2024 Bacteria identified Cx Nom (Bld) No growth in 5 days. [facility] Carbon dioxide, total [Moles /volume] in Central venous bloodOrdered By: Kaushik Brown on 08-19-2024 CO2 [Moles/Vol] 19.8 mmol/L Low 21.0-32.0 [facility] Chloride assayOrdered By: Dede Brown on 08-19-2024 Chloride [Moles/Vol] 100 mmol/L 98-108 [facility] Eosinophil percentageOrdered By: Kaushik Brown on 08-19-2024 Eosinophils/100 WBC (Bld) 0.1 % 0-5 [facility] Erythrocyte distribution wid th (RBC) [Ratio]Ordered By: Kaushik Brown on 08-19-2024 Erythrocyte distribution width (RBC) [Entitic vol] 48.7 fL High 35.1-43.9 [facility] Erythrocyte distribution wid th ratioOrdered By: Kaushik Brown on 08-19-2024 Erythrocyte distribution width (RBC) [Ratio] 14.6 % 11.6-14.6 [facility] Estimation of creatinine joy aranceOrdered By: Kaushik Brown on 08-19-2024 Estimated Creatinine Clearance Calc 45.50 ml/min Low 50-250 [facility] GFR/1.73 sq M.predicted [place] non-blacks MDRD (S/P/Bld) [Vol rate/Area]Ordered By: Kaushik Brown on 08-19-2024 Estimated GFR (MDRD) Non-Af Amer 36 Low >60 [facility] Comment on above: mL/min/1.73m2 CKD-EP I Creatinine Equation (2020) Hematocrit Auto (Bld) [Volum e fraction]Ordered By: Kaushik Brown on 08-19-2024 Hematocrit (Bld) [Volume fraction] 37.4 % Low 40-54 [facility] Hemoglobin measurementOrdere d By: Kaushik Brown on 08-19-2024 Hemoglobin (Bld) [Mass/Vol] 12.7 g/dL Low 13.0-16.5 [facility] Immature granulocytes/100 WB C Auto (Bld)Ordered By: Kaushik Brown on 08-19-2024 Immature granulocytes/100 WBC (Bld) 1.000 % High 0.0-0.9 [facility] Comment on above: IG% - Immature Granu locytes (promyelocytes, myelocytes and metamyelocytes) > 1% indicates that a LEFT SHIFT is Present. International normalized rat io (INR) calculationOrdered By: Kaushik Brown on 08-19-2024 INR Coag (Bld) [Relative time] 1.6 {INR} [facility] - Chemistry and C hemistry - challengeOrdered By: Kaushik Brown on 08-19-2024 AST [Catalytic activity/Vol] 29 U/L <38 [facility] Lactic acid measurementOrder ed By: Kaushik Brown on 08-19-2024 Lactate [Moles/Vol] 3.4 mmol/L High 0.0-2.0 [facility] Comment on above: Critical Result(s) C alled at 0048: by: NBURNS TO LSPARR Results read back by same. Lymphocytes Auto (Unsp spec) [#/Vol]Ordered By: Kaushik Brown on 08-19-2024 Lymphocytes (Bld) [#/Vol] 0.55 10*3/uL Low 0.83-4.51 [facility] Lymphocytes/100 WBC Auto (Un sp spec)Ordered By: Kaushik Brown on 08-19-2024 Lymphocytes/100 WBC (Bld) 6.3 % Low 19-41 [facility] MCV (mean corpuscular volume ) determinationOrdered By: Kaushik Brown on 08-19-2024 MCV (RBC) [Entitic vol] 91.7 fL 80-94 [facility] Mean corpuscular hemoglobin (MCH) determinationOrdered By: Kaushik Brown on 08-19-2024 MCH (RBC) [Entitic mass] 31.1 pg 27.0-32.0 [facility] Mean corpuscular hemoglobin concentration (MCHC) determinationOrdered By: Kaushik Brown on 08-19-2024 MCHC (RBC) [Mass/Vol] 34.0 g/dL 32-36 [facility] Mean platelet volume determi nationOrdered By: Kaushik Brown on 08-19-2024 Platelet mean volume (Bld) [Entitic vol] 9.3 fL 6.2-12.0 [facility] Monocyte percentageOrdered B y: Kaushik Brown on 08-19-2024 Monocytes/100 WBC (Bld) 4.9 % 0-10 [facility] Neutrophil percentageOrdered By: Kaushik Brown on 08-19-2024 Neutrophils/100 WBC (Bld) 87.2 % High 47-70 [facility] Nucleated red blood cell per centageOrdered By: Kaushik Brown on 08-19-2024 Nucleated RBC/100 WBC (Bld) [Ratio] 0 % 0-5 [facility] Platelet countOrdered By: Dede Brown on 08-19-2024 Platelets (Bld) [#/Vol] 126 10*3/uL Low 150-450 [facility] Potassium (Unsp spec) [Mass/ Vol]Ordered By: Kaushik Brown on 08-19-2024 Potassium [Moles/Vol] 5.3 mmol/L High 3.3-5.1 [facility] Procalcitonin IA [Mass/Vol]O rdered By: Kaushik Brown on 08-19-2024 Procalcitonin 0.32 ng/mL High <0.11 [facility] Comment on above: Interpretation:<0.10 -0.25 ng/mL: [...] Procalcitonin IA [Mass/Vol] 0.32 ng/mL High <0.11 [facility] Comment on above: Interpretation:<0.10 -0.25 ng/mL: [...] Coag (PPP) [Time] 19.2 s High 11.7-14.9 [facility] RBC Auto (Bld) [#/Vol]Ordere d By: Kaushik Brown on 08-19-2024 RBC (Bld) [#/Vol] 4.08 10*6/uL Low 4.6-6.2 [facility] Serum creatinine measurement (mass/volume)Ordered By: Kaushik Brown on 08-19-2024 Creatinine [Mass/Vol] 1.90 mg/dL High 0.70-1.20 [facility] Serum globulin measurementOr dered By: Kaushik Brown on 08-19-2024 Globulin (S) [Mass/Vol] 3.4 g/dL 2.2-4.2 [facility] Serum glucose measurement (m ass/volume)Ordered By: Kaushik Brown on 08-19-2024 Glucose [Mass/Vol] 245 mg/dL High 70-99 [facility] Serum or plasma alanine wylie otransferase (ALT) measurementOrdered By: Kaushik Brown on 08-19-2024 ALT [Catalytic activity/Vol] 24 U/L <47 [facility] Serum or plasma albumin maricel urement (mass/volume)Ordered By: Kaushik Brown on 08-19-2024 Albumin [Mass/Vol] 3.6 g/dL 3.4-4.8 [facility] Serum or plasma albumin/glob ulin mass ratioOrdered By: Kaushik Brown on 08-19-2024 Albumin/Globulin [Mass ratio] 1.1 {ratio} 0.9-2.4 [facility] Serum or plasma alkaline ivan sphatase measurementOrdered By: Kaushik Brown on 08-19-2024 ALP [Catalytic activity/Vol] 78 U/L 40-129 [facility] Serum or plasma calcium maricel urement (mass/volume)Ordered By: Kaushik Brown on 08-19-2024 Calcium [Mass/Vol] 8.8 mg/dL 7.6-11.0 [facility] Serum or plasma urea nitroge n measurement (mass/volume)Ordered By: Kaushik Brown on 08-19-2024 Urea nitrogen [Mass/Vol] 17 mg/dL 4-19 [facility] Sodium levelOrdered By: Bill Brown on 08-19-2024 Sodium [Moles/Vol] 133 mmol/L 133-145 [facility] Total proteinOrdered By: Juliano Brown on 08-19-2024 Protein [Mass/Vol] 7.0 g/dL 5.9-8.4 [facility] White blood cell (WBC) count Ordered By: Kaushik Brown on 08-19-2024 WBC (Bld) [#/Vol] 8.7 10*3/uL 4.4-11.0 [facility] aPTT Coag (PPP) [Time]Ordere d By: Kaushik Brown on 08-19-2024 aPTT Coag (Bld) [Time] 32.3 s 24.1-36.2 [facility] Basic Metabolic Profile (BMP )on 03-18-2024 BUN/CRE 13.4 RATIO Normal 10-20 [facility] Comment on above: Performed By: #### L 101.9900, L501.6410, L100.0100, L500.2500 #### [facility] [address] [place], [place] [address]beth. [place], [address] CA,Total 9.2 mg/dL Normal 8.5-10.1 [facility] Comment on above: Performed By: #### L 101.9900, L501.6710, L100.0100, L500.2500 #### [facility] [address] [place], [address] Chloride [Moles/Vol] 107 mmol/L Normal 98-107 [facility] Comment on above: Performed By: #### L 101.9900, L501.6710, L100.0100, L500.2500 #### [facility] [address] [place], [address] CO2 [Moles/Vol] 24.0 mmol/L Normal 21.0-32.0 [facility] Comment on above: Performed By: #### L 101.9900, L501.6710, L100.0100, L500.2500 #### [facility] [address] [place], [address] Creatinine [Mass/Vol] 1.87 mg/dL High 0.70-1.30 [facility] Comment on above: Result Comment: The validity of the calculated GFR GFRAA in patients over 70 years has not been determined. Clinical correlation is essential. Performed By: #### L 101.9900, L501.6710, L100.0100, L500.2500 #### [facility] [address] [place], [address] ECRCL 49.07 ml/min Normal [facility] Comment on above: Performed By: #### L 101.9900, L501.6710, L100.0100, L500.2500 #### [facility] [address] [place], [address] EST GFR - AA 46 mL/min Low >60 [facility] Comment on above: Result Comment: Afri can [place] GFR Calc Performed By: #### L 101.9900, L501.6710, L100.0100, L500.2500 #### [facility] [address] [place], [address] GAP 5 Normal 5-15 [facility] Comment on above: Performed By: #### L 101.9900, L501.6710, L100.0100, L500.2500 #### [facility] [address] [place], [address] GFR/1.73 sq M.predicted among non-blacks MDRD (S/P/Bld) [Vol rate/Area] 38 mL/min/{1.73_m2} Low >60 [facility] Comment on above: Result Comment: Non- GFR Calc Performed By: #### L 101.9900, L501.6710, L100.0100, L500.2500 #### [facility] [address] [place], [address] Glucose [Mass/Vol] 199 mg/dL High 74-106 [facility] Comment on above: Result Comment: Fast ing Glucose result greater than or equal to 126 mg/dL suggests DIABETES MELLITUS per A.D.A. criteria. Performed By: #### L 101.9900, L501.6710, L100.0100, L500.2500 #### [facility] [address] [place], [address] Potassium [Moles/Vol] 4.8 mmol/L Normal 3.5-5.1 [facility] Comment on above: Performed By: #### L 101.9900, L501.6710, L100.0100, L500.2500 #### [facility] [address] [place], [address] Sodium [Moles/Vol] 136 mmol/L Normal 136-145 [facility] Comment on above: Performed By: #### L 101.9900, L501.6710, L100.0100, L500.2500 #### [facility] [address] [place], [address] Urea nitrogen [Mass/Vol] 25 mg/dL High 7-18 [facility] Comment on above: Performed By: #### L 101.9900, L501.6710, L100.0100, L500.2500 #### [facility] [address] [place], [address] CBC W/Diff, Automatedon 11-1 5-2023 Absolute Lymph 1.47 X10 3/uL Normal 0.83-4.51 [facility] Comment on above: Performed By: #### L 101.9900, L501.6710, L100.0100, L500.2500 #### [facility] [address] [place], [address] Absolute Neut 4.7 X10 3/uL Normal 2.0-7.7 [facility] Comment on above: Performed By: #### L 101.9900, L501.6710, L100.0100, L500.2500 #### [facility] [address] [place], [address] Basophils/100 WBC (Bld) 0.6 % Normal 0-1 [facility] Comment on above: Performed By: #### L 101.9900, L501.6710, L100.0100, L500.2500 #### [facility] [address] [place], [address] Eosinophils/100 WBC (Bld) 2.3 % Normal 0-5 [facility] Comment on above: Performed By: #### L 101.9900, L501.6710, L100.0100, L500.2500 #### [facility] [address] [place], [address] Erythrocyte distribution width (RBC) [Ratio] 15.0 % High 11.6-14.6 [facility] Comment on above: Performed By: #### L 101.9900, L501.6710, L100.0100, L500.2500 #### [facility] [address] [place], [address] Hematocrit (Bld) [Volume fraction] 41.8 % Normal 40-54 [facility] Comment on above: Performed By: #### L 101.9900, L501.6710, L100.0100, L500.2500 #### [facility] [address] [place], [address] Hemoglobin (Bld) [Mass/Vol] 13.7 g/dL Normal 13.0-16.5 [facility] Comment on above: Performed By: #### L 101.9900, L501.6710, L100.0100, L500.2500 #### [facility] [address] [place], [address] IG% 1.000 High 0.0-0.9 [facility] Comment on above: Result Comment: IG% - Immature Granulocytes (promyelocytes, myelocytes and metamyelocytes) > 1% indicates that a LEFT SHIFT is Present. Performed By: #### L 101.9900, L501.6710, L100.0100, L500.2500 #### [facility] [address] [place], [address] Lymphocytes/100 WBC (Bld) 21.2 % Normal 19-41 [facility] Comment on above: Performed By: #### L 101.9900, L501.6710, L100.0100, L500.2500 #### [facility] [address] [place], [address] MCH (RBC) [Entitic mass] 31.6 pg Normal 27.0-32.0 [facility] Comment on above: Performed By: #### L 101.9900, L501.6710, L100.0100, L500.2500 #### [facility] [address] [place], [address] MCHC (RBC) [Mass/Vol] 32.8 g/dL Normal 32-36 [facility] Comment on above: Performed By: #### L 101.9900, L501.6710, L100.0100, L500.2500 #### [facility] [address] [place], [address] MCV (RBC) [Entitic vol] 96.3 fL High 80-94 [facility] Comment on above: Performed By: #### L 101.9900, L501.6710, L100.0100, L500.2500 #### [facility] [address] [place], [address] Monocytes/100 WBC (Bld) 7.5 % Normal 0-10 [facility] Comment on above: Performed By: #### L 101.9900, L501.6710, L100.0100, L500.2500 #### [facility] [address] [place], [address] Neutrophils/100 WBC (Bld) 67.4 % Normal 47-70 [facility] Comment on above: Performed By: #### L 101.9900, L501.6710, L100.0100, L500.2500 #### [facility] [address] [place], [address] Nucleated RBC (Bld) [#/Vol] 0 10*3/uL Normal 0-5 [facility] Comment on above: Performed By: #### L 101.9900, L501.6710, L100.0100, L500.2500 #### [facility] [address] [place], [address] Platelet mean volume (Bld) [Entitic vol] 9.4 fL Normal 6.2-12.0 [facility] Comment on above: Performed By: #### L 101.9900, L501.6710, L100.0100, L500.2500 #### [facility] [address] [place], [address] Platelets (Bld) [#/Vol] 112 10*3/uL Low 150-450 [facility] Comment on above: Performed By: #### L 101.9900, L501.6710, L100.0100, L500.2500 #### [facility] [address] [place], [address] RBC (Bld) [#/Vol] 4.34 10*6/uL Low 4.6-6.2 [facility] Comment on above: Performed By: #### L 101.9900, L501.6710, L100.0100, L500.2500 #### [facility] [address] [place], [address] RDW SD 53.0 fl High 35.1-43.9 [facility] Comment on above: Performed By: #### L 101.9900, L501.6710, L100.0100, L500.2500 #### [facility] [address] [place], [address] WBC (Bld) [#/Vol] 6.9 10*3/uL Normal 4.4-11.0 [facility] Comment on above: Performed By: #### L 101.9900, L501.6710, L100.0100, L500.2500 #### [facility] [address] [place], [address] CRPon 03-18-2024 C-REACTIVE PROT 26.00 mg/L High 0.0-3.0 [facility] Comment on above: Result Comment: C-Re active Protein (CRP) provides useful information for the diagnosis, therapy and monitoring of inflammatory processes and associated diseases. For the evaluation of Relative Risk for Cardiovascular Disease, a High Sensitivity CRP (HSCRP) should be ordered. Performed By: #### L 101.9900, L501.6710, L100.0100, L500.2500 #### [facility] [address] [place], [address] Chest PA and Lateralon 03-18 Chest PA and Lateral 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 He denies any fevers, chills, shortness of breath, chest pain, abdominal pain, nausea, and vomiting. He does have a history of T2DM, HTN, HLD, and CKD. [facility] Medical History Kidney disease Gout Dementia Diabetes HTN (hypertension) Home Medications ???Medication ???Instructions ???Recorded ???Last Taken ???Type allopurinol 100 mg tablet 100 mg PO DAILYCM 05/03/13 Unknown History gabapentin 800 mg tablet 800 mg PO TIDCM 05/03/13 Unknown History [id number]-[id number]-tyhcj acid 0.4 1 ea PO DAILY 05/03/13 [...] normal respiratory (more content not included)... Normal [facility] Erythrocyte Sed Rateon 03-18 SED RATE 24 mm/hr High 0-20 [facility] Comment on above: Performed By: #### L 101.9900, L501.6710, L100.0100, L500.2500 #### [facility] [address] [facility] [place], [address] Foot min 3 Viewson Foot min [address] 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 criteria. Neutrophils (Bld) [#/Vol] 4.4 10*3/uL 2.0-7.7 [facility] Neutrophils/100 WBC (Bld) 70.7 % 47-70 [facility] Potassium [Moles/Vol] 4.2 mmol/L 3.5-5.1 [facility] Sodium [Moles/Vol] 137 mmol/L 136-145 [facility] WBC (Bld) [#/Vol] 6.3 10*3/uL 4.4-11.0 [facility] Blood erythrocytes count (nu mber/volume)Ordered By: Elicia Blair on 11-06-2022 RBC (Bld) [#/Vol] 4.45 10*6/uL 4.6-6.2 [facility] Blood hemoglobin measurement (mass/volume)Ordered By: Elicia Blair on 11-06-2022 Hemoglobin (Bld) [Mass/Vol] 13.8 g/dL 13.0-16.5 [facility] Blood lymphocytes/100 leukoc ytesOrdered By: Elicia Blair on 11-06-2022 Lymphocytes/100 WBC (Bld) 18.3 % 19-41 [facility] Blood monocytes/100 leukocyt esOrdered By: Elicia Blair on 11-06-2022 Monocytes/100 WBC (Bld) 6.4 % 0-10 [facility] Blood platelet mean volumeOr dered By: Elicia Blair on 11-06-2022 Platelet mean volume (Bld) [Entitic vol] 8.8 fL 6.2-12.0 [facility] Determination of erythrocyte mean corpuscular volume (MCV)Ordered By: Elicia Blair on 11-06-2022 MCV (RBC) [Entitic vol] 94.6 fL 80-94 [facility] Hematocrit Auto (Bld) [Volum e fraction]Ordered By: Eliciabeth Blair on 11-06-2022 Hematocrit (Bld) [Volume fraction] 42.1 % 40-54 [facility] - Chemistry and C hemistry - challengeOrdered By: Elicia Blair on 11-06-2022 CO2 [Moles/Vol] 29.0 mmol/L 21.0-32.0 [facility] Urea nitrogen/Creatinine [Mass ratio] 11.6 mg/mg 10-20 [facility] - Hematology and Cell countsOrdered By: Elicia Blair on 11-06-2022 Erythrocyte distribution width (RBC) [Entitic vol] 52.6 fL 35.1-43.9 [facility] Erythrocyte distribution width (RBC) [Ratio] 15.2 % 11.6-14.6 [facility] Immature granulocytes/100 WBC (Bld) 1.300 % 0.0-0.9 [facility] Comment on above: IG% - Immature Granu locytes (promyelocytes, myelocytes and metamyelocytes) > 1% indicates that a LEFT SHIFT is Present. MCH (RBC) [Entitic mass] 31.0 pg 27.0-32.0 [facility] Nucleated RBC/100 WBC (Bld) [Ratio] 0 % 0-5 [facility] MCHC Auto (RBC) [Mass/Vol]Or dered By: Elicia Blair on 11-06-2022 MCHC (RBC) [Mass/Vol] 32.8 g/dL 32-36 [facility] No Panel InformationOrdered By: Elicia Blair on 11-06-2022 Estimated Creatinine Clearance Calc 47.67 ml/min [facility] Estimated GFR (MDRD) Amer 65 mL/min >60 [facility] Comment on above: GFR Calc Estimated GFR (MDRD) Non-Af Amer 54 mL/min >60 [facility] Comment on above: Non- GFR Calc Platelets bldOrdered By: Jarrod Blair on 11-06-2022 Platelets (Bld) [#/Vol] 106 10*3/uL 150-450 [facility] Serum or plasma calcium maricel urement (mass/volume)Ordered By: Elicia Blair on 11-06-2022 Calcium [Mass/Vol] 8.6 mg/dL 8.5-10.1 [facility] Serum or plasma creatinine m easurement (mass/volume)Ordered By: Elicia Blair on 11-06-2022 Creatinine [Mass/Vol] 1.38 mg/dL 0.70-1.30 [facility] Comment on above: The validity of the calculated GFR & GFRAA in patients over 70 years has not been determined. Clinical correlation is essential. Serum or plasma urea nitroge n measurement (mass/volume)Ordered By: Elicia Blair on 11-06-2022 Urea nitrogen [Mass/Vol] 16 mg/dL 7-18 [facility] Thin prep Papanicolaou smear with manual screeningOrdered By: Elicia Blair on 11-06-2022 Thin prep Papanicolaou smear with manual screening 4 5-15 [facility] URINE CULTUREon 06-08-2022 Bacteria identified Cx Nom (U) URINE CULTURE NO BACTERIAL GROWTH Normal [facility] Comment on above: Performed By: #### B MP, CBCD #### [facility] [address] [place] [address] URINALYSIS REFLEX TO CULTURE on 06-06-2022 BACTERIA 1+ Abnormal [facility] Comment on above: Order Comment: FAX T O S LOWE [phone] TO [facility]RI[facility] Performed By: #### B MP, CBCD #### [facility] [address] [place] [address] Bilirubin Ql (U) Negative Normal Negative [facility] Comment on above: Order Comment: FAX T O S LOWE [phone] TO [facility] Performed By: #### B MP, CBCD #### [facility] [address] [place] [address] Clarity (U) Turbid Normal Clear [facility] Comment on above: Order Comment: FAX T O S LOWE [phone] TO [facility] Performed By: #### B MP, CBCD #### [facility] [address] [place] [address] Color (U) Yellow Normal Yellow [facility] Comment on above: Order Comment: FAX T O S LOWE [phone] TO [facility] Performed By: #### B MP, CBCD #### [facility] [address] [place] [address] Epithelial cells LM Ql (Urine sed) 2-4 Normal [facility] Comment on above: Order Comment: FAX T O S LOWE [phone] TO [facility] Performed By: #### B MP, CBCD #### [facility] [address] [place] [address] Glucose Ql (U) 3+ Normal Negative [facility] Comment on above: Order Comment: FAX T O S LOWE [phone] TO [facility]OT Performed By: #### B MP, CBCD #### [facility] [address] [place] [address] Hemoglobin Ql (U) 2+ Abnormal Negative [facility] Comment on above: Order Comment: FAX T O S LOWE [phone] TO [facility] Performed By: #### B MP, CBCD #### [facility] [address] [place] [address] KETONE Negative Normal Negative [facility] Comment on above: Order Comment: FAX T O S LOWE [phone] TO [facility] Performed By: #### B MP, CBCD #### [facility] [address] [place] [address] LEUKO ESTERASE 2+ Abnormal Negative [facility] Comment on above: Order Comment: FAX T O S LOWE [phone] TO [facility] Performed By: #### B MP, CBCD #### [facility] [address] [place] [address] Nitrite Ql (U) Negative Normal Negative [facility] Comment on above: Order Comment: FAX T O S LOWE [phone] TO [facility]OT Performed By: #### B MP, CBCD #### [facility] [address] [place] [address] pH (U) 5.0 [pH] Normal 4.5-8.0 [facility] Comment on above: Order Comment: FAX T O S LOWE [phone] TO PATRIOT Performed By: #### B MP, CBCD #### [facility] [address] [place] [address] Protein Ql (U) 1+ Abnormal Negative [facility] Comment on above: Order Comment: FAX T O S LOWE [phone] TO PATRIOT Performed By: #### B MP, CBCD #### [facility] [address] [place] [address] RBC 5-10 Normal 0-2 [facility] Comment on above: Order Comment: FAX T O S LOWE [phone] TO PAT[facility]OT Performed By: #### B MP, CBCD #### [facility] [address] [place] [address] Specific gravity (U) [Rel density] 1.025 Normal 1.001-1.030 [facility] Comment on above: Order Comment: FAX T O S LOWE [phone] TO PATRIOT Performed By: #### B MP, CBCD #### [facility] [address] [place] [address] URINE REFLEX COMMENT YES Normal NO [facility] Comment on above: Order Comment: FAX T O S LOWE [phone] TO [facility] Result Comment: REFL EX CRITERIA MET FOR URINE CULTURE Performed By: #### B MP, CBCD #### [facility] [address] [place] [address] UROBILINOGEN 1.0 E.U./dl Normal 0.0-1.0 [facility] Comment on above: Order Comment: FAX T O S LOWE [phone] TO PATRIOT Performed By: #### B MP, CBCD #### [facility] [address] [place] [address] WBC TNTC Normal 0-5 [facility] Comment on above: Order Comment: FAX T O S LOWE [phone] TO PATRIOT Performed By: #### B MP, CBCD #### [facility] [address] [place] [address] Absolute lymphocyte countOrd ered By: Naresh Sainz on 06-02-2022 Lymphocytes Auto (Unsp spec) [#/Vol] 1.3 10*3/uL 1.10-4.80 [facility] Basic Metabolic Panelon 01-3 0-2023 Anion gap [Moles/Vol] 9.0 mmol/L Normal 3-11 [facility] ([place]) Comment on above: Performed By: #### C D #### [facility] [address] [place] [address] Calcium [Mass/Vol] 8.8 mg/dL Normal 8.5-10.5 [facility] ([place]) Comment on above: Performed By: #### C D #### [facility] [address] [place] [address] Chloride [Moles/Vol] 100 mmol/L Normal 98-107 [facility] ([place]) Comment on above: Performed By: #### C D #### [facility] [address] [place] [address] CO2 [Moles/Vol] 26 mmol/L Normal 21-31 [facility] ([place]) Comment on above: Performed By: #### C D #### [facility] [address] [place] [address] Creatinine [Moles/Vol] 1.3 mg/dL Normal 0.6-1.3 [facility] ([place]) Comment on above: Performed By: #### C D #### [facility] [address] [place] [address] Creatinine and Glomerular filtration rate.predicted panel (S/P/Bld) 65 mL/min Normal >60 [facility] ([place]) Comment on above: Performed By: #### C D #### [facility] [address] [place] [address] GFR/1.73 sq M.predicted among non-blacks MDRD (S/P/Bld) [Vol rate/Area] 54 mL/min/{1.73_m2} Normal >60 [facility] ([place]) Comment on above: Performed By: #### C D #### [facility] [address] [place] [address] Glucose [Mass/Vol] 153 mg/dL High 70-99 [facility] ([place]) Comment on above: Performed By: #### C D #### [facility] [address] [place] [address] Potassium [Moles/Vol] 3.9 mmol/L Normal 3.6-5.0 [facility] ([place]) Comment on above: Performed By: #### C D #### [facility] [address] [place] [address] Sodium [Moles/Vol] 135 mmol/L Normal 135-145 [facility] ([place]) Comment on above: Performed By: #### C D #### [facility] [address] [place] [address] Urea nitrogen [Mass/Vol] 13 mg/dL Normal 6-20 [facility] ([place]) Comment on above: Performed By: #### C D #### [facility] [address] [place] [address] Basophils Auto (Bld) [#/Vol] Ordered By: Naresh Sainz on 06-02-2022 Basophils (Bld) [#/Vol] 0.0 10*3/uL 0.00-0.20 [facility] Basophils/100 WBC Auto (Bld) Ordered By: Naresh Sainz on 06-02-2022 Basophils/100 WBC (Bld) 0.4 % 0.0-1.5 [facility] Blood magnesium measurement (mass/volume)Ordered By: Naresh Sainz on 06-02-2022 Magnesium (Bld) [Mass/Vol] 1.6 mEq/L 1.6-2.6 [facility] CBC W/ Auto Diffon Basophils (Bld) [#/Vol] 0.0 10*3/uL Normal 0.00-0.20 [facility] ([place]) Comment on above: Performed By: #### C D #### [facility] [address] [place] [address] Basophils/100 WBC (Bld) 0.4 % Normal 0.0-1.5 [facility] ([place]) Comment on above: Performed By: #### C D #### [address] [address] Eosinophils (Bld) [#/Vol] 0.1 10*3/uL Normal 0.00-0.33 [facility] ([place]) Comment on above: Performed By: #### C D #### [address] [address] Eosinophils/100 WBC (Bld) 0.9 % Normal 0.0-3.0 [facility] ([place]) Comment on above: Performed By: #### C D #### [address] [address] Erythrocyte distribution width (RBC) [Ratio] 14.8 % High 10.9-14.3 [facility] ([place]) Comment on above: Performed By: #### C D #### [facility] [address] [place] [address] Hematocrit (Bld) [Volume fraction] 39.0 % Low 41.0-50.0 [facility] ([place]) Comment on above: Performed By: #### C D #### [facility] [address] [place] [address] Hemoglobin (Bld) [Mass/Vol] 12.7 g/dL Low 13.5-16.5 [facility] ([place]) Comment on above: Performed By: #### C D #### [facility] [address] [place] [address] Lymphocytes Auto (Unsp spec) [#/Vol] 1.3 10*3/uL Normal 1.10-4.80 [facility] ([place]) Comment on above: Performed By: #### C D #### [address] [address] Lymphocytes/100 WBC (Bld) 16.2 % Low 24.0-44.0 [facility] ([place]) Comment on above: Performed By: #### C D #### [facility] [address] [place] [address] MCH (RBC) [Entitic mass] 28.2 pg Normal 28.0-34.0 [facility] ([place]) Comment on above: Performed By: #### C D #### [facility] [address] [place] [address] MCHC (RBC) [Mass/Vol] 32.7 g/dL Low 33.0-37.0 [facility] ([place]) Comment on above: Performed By: #### C D #### [facility] [address] [place] [address] MCV (RBC) [Entitic vol] 86.1 fL Normal 80.0-100.0 [facility] ([place]) Comment on above: Performed By: #### C D #### [facility] [address] [place] [address] Monocytes (Bld) [#/Vol] 0.8 10*3/uL High 0.20-0.70 [facility] ([place]) Comment on above: Performed By: #### C D #### [facility] [address] [place] [address] Monocytes/100 WBC (Bld) 9.4 % High 3.4-9.0 [facility] ([place]) Comment on above: Performed By: #### C D #### [facility] [address] [place] [address] Neutrophils (Bld) [#/Vol] 6.0 10*3/uL Normal 1.83-8.70 [facility] ([place]) Comment on above: Performed By: #### C D #### [facility] [address] [place] [address] Neutrophils/100 WBC (Bld) 73.1 % Normal 40.0-74.0 [facility] ([place]) Comment on above: Performed By: #### C D #### [facility] [address] [place] [address] Platelet mean volume (Bld) [Entitic vol] 6.6 fL Low 7.4-10.4 [facility] ([place]) Comment on above: Performed By: #### C D #### [facility] [address] [place] [address] Platelets (Bld) [#/Vol] 167 10*3/uL Normal 150-450 [facility] ([place]) Comment on above: Performed By: #### C D #### [facility] [address] [place] [address] RBC (Bld) [#/Vol] 4.53 10*6/uL Normal 4.50-5.50 [facility] ([place]) Comment on above: Performed By: #### C D #### [facility] [address] [place] [address] WBC (Bld) [#/Vol] 8.2 10*3/uL Normal 4.5-11.0 [facility] ([place]) Comment on above: Performed By: #### C D #### [facility] [address] [place] [address] Carbon dioxide, total [Moles /volume] in Serum or PlasmaOrdered By: Naresh Sainz on 06-02-2022 CO2 [Moles/Vol] 26 mmol/L 21- [facility] Chloride [Moles/volume] in S maricel or PlasmaOrdered By: Naresh Sainz on 06-02-2022 Chloride [Moles/Vol] 100 mmol/L 98-107 [facility] Creatinine and Glomerular fi ltration rate.predicted panel (S/P/Bld)Ordered By: Naresh Sainz on 06-02-2022 GFR/1.73 sq M.predicted MDRD (S/P/Bld) [Vol rate/Area] 65 mL/min/{1.73_m2} >60 [facility] Eosinophils Auto (Bld) [#/Vo l]Ordered By: Naresh Sainz on 06-02-2022 Eosinophils (Bld) [#/Vol] 0.1 10*3/uL 0.00-0.33 [facility] Eosinophils/100 WBC Auto (Bl d)Ordered By: Naresh Sainz on 06-02-2022 Eosinophils/100 WBC (Bld) 0.9 % 0.0-3.0 [facility] Erythrocyte distribution wid th Auto (RBC) [Ratio]Ordered By: Naresh Sainz on 06-02-2022 Erythrocyte distribution width (RBC) [Ratio] 14.8 % 10.9-14.3 [facility] Estimated glomerular filtrat ion rate (GFR) non- AmericanOrdered By: Naresh Sainz on 06-02-2022 GFR/1.73 sq M.predicted among non-blacks MDRD (S/P/Bld) [Vol rate/Area] 54 mL/min/{1.73_m2} >60 [facility] Glucose Glucometer (BldC) [M ass/Vol]on 06-02-2022 Glucose [Mass/Vol] 239 mg/dL Normal 70-99 [facility] ([place]) Comment on above: Performed By: #### 2 1020-3 #### [facility] [address] [place] [address] Glucose [Mass/Vol] 158 mg/dL Normal 70-99 [facility] ([place]) Comment on above: Performed By: #### 4 1653-7 #### [facility] [address] [place] [address] Glucose Glucometer (BldC) [M ass/Vol]Ordered By: Naresh Sainz on 06-02-2022 Glucose [Mass/Vol] 239 mg/dL 70-99 [facility] Hematocrit Auto (Bld) [Volum e fraction]Ordered By: Naresh Sainz on 06-02-2022 Hematocrit (Bld) [Volume fraction] 39.0 % 41.0-50.0 [facility] Hemoglobin A1con 06-02-2022 Average glucose Estimated from glycated hemoglobin (Bld) [Mass/Vol] 235 mg/dL Normal [facility] ([place]) Comment on above: Performed By: #### C D #### [facility] [address], [place] [id number] HbA1c (Bld) [Mass fraction] 9.8 % High 4.0-6.0 [facility] ([place]) Comment on above: Performed By: #### C D #### [facility] [address], [place] [address] (730) Hemoglobin [Mass/volume] in BloodOrdered By: Naresh Sainz on 06-02-2022 Hemoglobin (Bld) [Mass/Vol] 12.7 g/dL 13.5-16.5 [facility] Lymphocytes/100 WBC Auto (Bl d)Ordered By: Naresh Sainz on 06-02-2022 Lymphocytes/100 WBC (Bld) 16.2 % 24.0-44.0 [facility] MCH Auto (RBC) [Entitic mass ]Ordered By: Naresh Sainz on 06-02-2022 MCH (RBC) [Entitic mass] 28.2 pg 28.0-34.0 [facility] MCHC Auto (RBC) [Mass/Vol]Or dered By: Naresh Sainz on 06-02-2022 MCHC (RBC) [Mass/Vol] 32.7 g/dL 33.0-37.0 [facility] MCV (mean corpuscular volume ) determinationOrdered By: Naresh Sainz on 06-02-2022 MCV (RBC) [Entitic vol] 86.1 fL 80.0-100.0 [facility] Magnesium Bld-mCncon 023 Magnesium (Bld) [Mass/Vol] 1.6 mEq/L Normal 1.6-2.6 [facility] ([place]) Comment on above: Performed By: #### C D #### [facility] [address], [place] [address] Monocytes Auto (Bld) [#/Vol] Ordered By: Naresh Sainz on 06-02-2022 Monocytes (Bld) [#/Vol] 0.8 10*3/uL 0.20-0.70 [facility] Monocytes/100 WBC Auto (Bld) Ordered By: Naresh Sainz on 06-02-2022 Monocytes/100 WBC (Bld) 9.4 % 3.4-9.0 [facility] Neutrophils Auto (Bld) [#/Vo l]Ordered By: Naresh Sainz on 06-02-2022 Neutrophils (Bld) [#/Vol] 6.0 10*3/uL 1.83-8.70 [facility] Neutrophils/100 WBC Auto (Bl d)Ordered By: Naresh Sainz on 06-02-2022 Neutrophils/100 WBC (Bld) 73.1 % 40.0-74.0 [facility] No Panel InformationOrdered By: Naresh Sainz on 06-02-2022 Anticoagulation Therapy See comment [facility] Comment on above: Suggested Therapy Ra nge: 2.0 - 3.5 Platelet mean volume Auto (B ld) [Entitic vol]Ordered By: Naresh Sainz on 06-02-2022 Platelet mean volume (Bld) [Entitic vol] 6.6 fL 7.4-10.4 [facility] Platelet poor plasma interna tional normalized ratio (INR) by coagulation assay (relatOrdered By: Naresh Sainz on 06-02-2022 INR Coag (PPP) [Relative time] 1.41 {INR} 2.00-3.50 [facility] Platelets Auto (Bld) [#/Vol] Ordered By: Naresh Sainz on 06-02-2022 Platelets (Bld) [#/Vol] 167 10*3/uL 150-450 [facility] Potassium [Moles/volume] in Serum or PlasmaOrdered By: Naresh Sainz on 06-02-2022 Potassium [Moles/Vol] 3.9 mmol/L 3.6-5.0 [facility] Prothrombin Time on Coumadin on 06-02-2022 INR Coag (PPP) [Relative time] 1.41 {INR} Low 2.00-3.50 [facility] ([place]) Comment on above: Performed By: #### 3 2693-4 #### [facility] [address] [place] [address] RBC Auto (Bld) [#/Vol]Ordere d By: Naresh Sainz on 06-02-2022 RBC (Bld) [#/Vol] 4.53 10*6/uL 4.50-5.50 [facility] Reflex Urn Culton 06-02-2022 Bacteria identified Cx Nom (U) ORGANISM ID: 1.1 - Mixed Urogenital Daryn Daykin Count >100,000 CFU/ml Normal [facility] ([place]) Comment on above: Performed By: #### 6 30-4 #### [facility] [address], [place] [address] Serum glucose measurement (m ass/volume)Ordered By: Naresh Sainz on 06-02-2022 Glucose [Mass/Vol] 153 mg/dL 70-99 [facility] Serum or plasma anion gap de termination (moles/volume)Ordered By: Naresh Sainz on 06-02-2022 Anion gap [Moles/Vol] 9.0 mmol/L 3-11 [facility] Serum or plasma calcium maricel urement (mass/volume)Ordered By: Naresh Sainz on 06-02-2022 Calcium [Mass/Vol] 8.8 mg/dL 8.5-10.5 [facility] Serum or plasma creatinine m easurement (moles/volume)Ordered By: Naresh Sainz on 06-02-2022 Creatinine [Moles/Vol] 1.3 mg/dL 0.6-1.3 [facility] Serum or plasma sodium measu rement (moles/volume)Ordered By: Naresh Sainz on 06-02-2022 Sodium [Moles/Vol] 135 mmol/L 135-145 [facility] Serum or plasma urea nitroge n measurement (mass/volume)Ordered By: Naresh Sainz on 06-02-2022 Urea nitrogen [Mass/Vol] 13 mg/dL 6-20 [facility] Urine culture routineOrdered By: Thompson Hayden on 06-02-2022 Bacteria identified Cx Nom (U) Mixed Urogenital Daryn [facility] WBC Auto (Bld) [#/Vol]Ordere d By: Naresh Sainz on 06-02-2022 WBC (Bld) [#/Vol] 8.2 10*3/uL 4.5-11.0 [facility] Basic Metabolic Panelon 05-05 Anion gap [Moles/Vol] 6.0 mmol/L Normal 3-11 [facility] ([place]) Comment on above: Performed By: #### 6 30-4 #### [facility] [address] [place] [address] Calcium [Mass/Vol] 8.9 mg/dL Normal 8.5-10.5 [facility] ([place]) Comment on above: Performed By: #### 6 30-4 #### [facility] [address] [place] [address] Chloride [Moles/Vol] 101 mmol/L Normal 98-107 [facility] ([place]) Comment on above: Performed By: #### 6 30-4 #### [facility] [address] [place] [address] CO2 [Moles/Vol] 28 mmol/L Normal 21-31 [facility] ([place]) Comment on above: Performed By: #### 6 30-4 #### [facility] [address] [place] [address] Creatinine [Moles/Vol] 1.3 mg/dL Normal 0.6-1.3 [facility] ([place]) Comment on above: Performed By: #### 6 30-4 #### [facility] [address] [place] [address] Creatinine and Glomerular filtration rate.predicted panel (S/P/Bld) 65 mL/min Normal >60 [facility] ([place]) Comment on above: Performed By: #### 6 30-4 #### [facility] [address] [place] [address] GFR/1.73 sq M.predicted among non-blacks MDRD (S/P/Bld) [Vol rate/Area] 54 mL/min/{1.73_m2} Normal >60 [facility] ([place]) Comment on above: Performed By: #### 6 30-4 #### [facility] [address] [place] [address] Glucose [Mass/Vol] 157 mg/dL High 70-99 [facility] ([place]) Comment on above: Performed By: #### 6 30-4 #### [facility] [address] [place] [address] Potassium [Moles/Vol] 3.8 mmol/L Normal 3.6-5.0 [facility] ([place]) Comment on above: Performed By: #### 6 30-4 #### [facility] [address] [place] [address] Sodium [Moles/Vol] 135 mmol/L Normal 135-145 [facility] ([place]) Comment on above: Performed By: #### 6 30-4 #### [facility] [address] [place] [address] Urea nitrogen [Mass/Vol] 15 mg/dL Normal 6-20 [facility] ([place]) Comment on above: Performed By: #### 6 30-4 #### [facility] [address] [place] [address] CBC W/ Auto Diffon 3 Basophils (Bld) [#/Vol] 0.1 10*3/uL Normal 0.00-0.20 [facility] ([place]) Comment on above: Performed By: #### 6 30-4 #### [facility] [address] [place] [address] Basophils/100 WBC (Bld) 0.8 % Normal 0.0-1.5 [facility] ([place]) Comment on above: Performed By: #### 6 30-4 #### [facility] [address] [place] [address] Eosinophils (Bld) [#/Vol] 0.2 10*3/uL Normal 0.00-0.33 [facility] ([place]) Comment on above: Performed By: #### 6 30-4 #### [facility] [address] [place] [address] Eosinophils/100 WBC (Bld) 3.1 % High 0.0-3.0 [facility] ([place]) Comment on above: Performed By: #### 6 30-4 #### [facility] [address] [place] [address] Erythrocyte distribution width (RBC) [Ratio] 14.8 % High 10.9-14.3 [facility] ([place]) Comment on above: Performed By: #### 6 30-4 #### [facility] [address] [place] [address] Hematocrit (Bld) [Volume fraction] 37.9 % Low 41.0-50.0 [facility] ([place]) Comment on above: Performed By: #### 6 30-4 #### [facility] [address] [place] [address] Hemoglobin (Bld) [Mass/Vol] 12.6 g/dL Low 13.5-16.5 [facility] ([place]) Comment on above: Performed By: #### 6 30-4 #### [facility] [address] [place] [address] Lymphocytes Auto (Unsp spec) [#/Vol] 1.5 10*3/uL Normal 1.10-4.80 [facility] ([place]) Comment on above: Performed By: #### 6 30-4 #### [address] [address] Lymphocytes/100 WBC (Bld) 21.5 % Low 24.0-44.0 [facility] ([place]) Comment on above: Performed By: #### 6 30-4 #### [facility] [address] [place] [address] MCH (RBC) [Entitic mass] 28.7 pg Normal 28.0-34.0 [facility] ([place]) Comment on above: Performed By: #### 6 30-4 #### [facility] [address] [place] [address] MCHC (RBC) [Mass/Vol] 33.3 g/dL Normal 33.0-37.0 [facility] ([place]) Comment on above: Performed By: #### 6 30-4 #### [facility] [address] [place] [address] MCV (RBC) [Entitic vol] 86.0 fL Normal 80.0-100.0 [facility] ([place]) Comment on above: Performed By: #### 6 30-4 #### [address] [address] Monocytes (Bld) [#/Vol] 0.5 10*3/uL Normal 0.20-0.70 [facility] ([place]) Comment on above: Performed By: #### 6 30-4 #### [address] [address] Monocytes/100 WBC (Bld) 7.2 % Normal 3.4-9.0 [facility] ([place]) Comment on above: Performed By: #### 6 30-4 #### [address] [address] Neutrophils (Bld) [#/Vol] 4.9 10*3/uL Normal 1.83-8.70 [facility] ([place]) Comment on above: Performed By: #### 6 30-4 #### [address] [address] Neutrophils/100 WBC (Bld) 67.4 % Normal 40.0-74.0 [facility] ([place]) Comment on above: Performed By: #### 6 30-4 #### [facility] [address] [place] [address] Platelet mean volume (Bld) [Entitic vol] 6.6 fL Low 7.4-10.4 [facility] ([place]) Comment on above: Performed By: #### 6 30-4 #### [facility] [address] [place] [address] Platelets (Bld) [#/Vol] 155 10*3/uL Normal 150-450 [facility] ([place]) Comment on above: Performed By: #### 6 30-4 #### [facility] [address] [place] [address] RBC (Bld) [#/Vol] 4.41 10*6/uL Low 4.50-5.50 [facility] ([place]) Comment on above: Performed By: #### 6 30-4 #### [facility] [address] [place] [address] WBC (Bld) [#/Vol] 7.2 10*3/uL Normal 4.5-11.0 [facility] ([place]) Comment on above: Performed By: #### 6 30-4 #### [facility] [address] [place] [address] Glucose Glucometer (BldC) [M ass/Vol]on 06-01-2022 Glucose [Mass/Vol] 161 mg/dL Normal 70-99 [facility] ([place]) Comment on above: Performed By: #### 4 1653-7 #### [facility] [address] [place] [address] Glucose [Mass/Vol] 206 mg/dL Normal 70-99 [facility] ([place]) Comment on above: Performed By: #### 6 30-4 #### [address] [address] Glucose [Mass/Vol] 232 mg/dL Normal 70-99 [facility] ([place]) Comment on above: Performed By: #### 6 30-4 #### [facility] [address] [place] [address] Glucose [Mass/Vol] 152 mg/dL Normal 70-99 [facility] ([place]) Comment on above: Performed By: #### 4 1653-7 #### [facility] [address] [place] [address] Laboratory - Hematology and Cell countsOrdered By: Naresh Sainz on 06-01-2022 HbA1c (Bld) [Mass fraction] 9.8 % 4.0-6.0 [facility] Lipid Panelon 06-01-2022 Cholesterol [Mass/Vol] 97 mg/dL Low 140-200 [facility] ([place]) Comment on above: Performed By: #### 9 4500-6 #### [facility] [address] [place] [address] Cholesterol in HDL [Mass/Vol] 28 mg/dL Low 29-71 [facility] ([place]) Comment on above: Performed By: #### 9 4500-6 #### [facility] [address] [place] [address] Cholesterol in LDL [Mass/Vol] 48 mg/dL Normal <129 [facility] ([place]) Comment on above: Performed By: #### 9 4500-6 #### [facility] [address] [place] [address] Cholesterol in LDL/Cholesterol in HDL [Mass ratio] 1.7 {ratio} Normal [facility] ([place]) Comment on above: Result Comment: MEN WOMEN 1/2 Average Risk 1.00 1.47 Average Risk 3.55 3.22 2X Average Risk 6.25 5.03 3X Average Risk 7.99 6.14 Performed By: #### 9 4500-6 #### [facility] [address] [place] [address] Triglyceride [Mass/Vol] 167 mg/dL Normal 41-189 [facility] ([place]) Comment on above: Performed By: #### 9 4500-6 #### [facility] [address] [place] [address] Magnesium Bld-mCncon 023 Magnesium (Bld) [Mass/Vol] 1.7 mEq/L Normal 1.6-2.6 [facility] ([place]) Comment on above: Performed By: #### 6 30-4 #### [facility] [address] [place] [address] Prothrombin Time on Coumadin on 06-01-2022 INR Coag (PPP) [Relative time] 1.32 {INR} Low 2.00-3.50 [facility] ([place]) Comment on above: Performed By: #### 9 4500-6 #### [facility] [address] [place] [address] Serum or plasma cholesterol in LDL measurement (mass/volume)Ordered By: Naresh Sainz on 06-01-2022 Cholesterol in LDL [Mass/Vol] 48 mg/dL <128 [facility] Serum or plasma cholesterol measurement (mass/volume)Ordered By: Naresh Sainz on 06-01-2022 Cholesterol [Mass/Vol] 97 mg/dL 140-200 [facility] Serum or plasma high density lipoprotein (HDL) cholesterol measurementOrdered By: Naresh Sainz on 06-01-2022 Cholesterol in HDL [Mass/Vol] 28 mg/dL 29-71 [facility] Serum or plasma low density lipoprotein (LDL) cholesterol/high density lipoprotein (HOrdered By: Naresh Sainz on 06-01-2022 Cholesterol in LDL/Cholesterol in HDL [Mass ratio] 1.7 {ratio} [facility] Comment on above: MEN WOMEN1/2 Average Risk 1.00 1.47Average Risk 3.55 3.222X Average Risk 6.25 5.033X Average Risk 7.99 6.14 Serum or plasma thyroid stim ulating hormone (TSH) measurementOrdered By: Naresh Sainz on 06-01-2022 TSH Qn 3.49 uIU/mL 0.34-5.60 [facility] Serum or plasma triglyceride measurement (mass/volume)Ordered By: Naresh Sainz on 06-01-2022 Triglyceride [Mass/Vol] 167 mg/dL 41-189 [facility] TSH SerPl-aCncon 06-01-2022 TSH Qn 3.49 uIU/mL Normal 0.34-5.60 [facility] ([place]) Comment on above: Performed By: #### 9 4500-6 #### [facility] [address] [place] [address] Whole blood estimated averag e glucose determination by estimation from glycated hemoglobin (mass/voluOrdered By: Naresh Sainz on 06-01-2022 Average glucose Estimated from glycated hemoglobin (Bld) [Mass/Vol] 235 mg/dL [facility] ALT (SGPT) ser/plasOrdered B y: Thompson Hayden on 05-31-2022 ALT [Catalytic activity/Vol] 23 U/L 10-63 [facility] Albumin [Mass/volume] in Ser um or PlasmaOrdered By: Thompson Hayden on 05-31-2022 Albumin [Mass/Vol] 3.2 g/dL 3.4-4.8 [facility] Albumin/Globulin [Mass Ratio ] in Serum or PlasmaOrdered By: Thompson Hayden on 05-31-2022 Albumin/Globulin [Mass ratio] 0.8 {ratio} 1.1-2.2 [facility] Alkaline phosphatase [Enzyma tic activity/volume] in Serum or PlasmaOrdered By: Thompson Hayden on 05-31-2022 ALP [Catalytic activity/Vol] 72 U/L 42-121 [facility] Appearance urOrdered By: Jose Hayden on 05-31-2022 Appearance (U) Cloudy [facility] Aspartate aminotransferase [ Enzymatic activity/volume] in Serum or PlasmaOrdered By: Thompson Hayden on 05-31-2022 AST [Catalytic activity/Vol] 22 U/L 10-41 [facility] Automated leukocyte clumps c ount in urine sediment (number/area)Ordered By: Thompson Hayden on 05-31-2022 Leukocyte clumps Auto (Urine sed) [#/Area] Moderate /HPF NONE SEEN [facility] Automated urine sediment bud ding yeast count by microscopy (number/high power field)Ordered By: Thompson Hayden on 05-31-2022 Yeast.budding LM.HPF (Urine sed) [#/Area] Few /HPF NONE SEEN [facility] Bacteria [Presence] in Urine sediment by Light microscopyOrdered By: Thompson Hayden on 05-31-2022 Bacteria LM Ql (Urine sed) 1+ /HPF NONE SEEN [facility] Bilirubin.total [Mass/volume ] in Serum or PlasmaOrdered By: Thompson Hayden on 05-31-2022 Bilirubin [Mass/Vol] 0.8 mg/dL 0.3-1.5 [facility] Blood Cultureon 05-31-2022 Bacteria identified Anaer+Aer cx Nom (Unsp spec) Bacteria Spec Anaerobe+Aerobe Cult NO GROWTH 5 DAYS Normal [facility] ([place]) Comment on above: Performed By: #### 2 1020-3 #### [facility] [address] [place] [address] CBC W/ Auto Diffon 3 Basophils (Bld) [#/Vol] 0.0 10*3/uL Normal 0.00-0.20 [facility] ([place]) Comment on above: Performed By: #### 9 4500-6 #### [address] [address] Basophils/100 WBC (Bld) 0.7 % Normal 0.0-1.5 [facility] ([place]) Comment on above: Performed By: #### 9 4500-6 #### [address] [address] Eosinophils (Bld) [#/Vol] 0.2 10*3/uL Normal 0.00-0.33 [facility] ([place]) Comment on above: Performed By: #### 9 4500-6 #### [address] [address] Eosinophils/100 WBC (Bld) 2.9 % Normal 0.0-3.0 [facility] ([place]) Comment on above: Performed By: #### 9 4500-6 #### [facility] [address] [place] [address] Erythrocyte distribution width (RBC) [Ratio] 14.7 % High 10.9-14.3 [facility] ([place]) Comment on above: Performed By: #### 9 4500-6 #### [facility] [address] [place] [address] Hematocrit (Bld) [Volume fraction] 37.6 % Low 41.0-50.0 [facility] ([place]) Comment on above: Performed By: #### 9 4500-6 #### [facility] [address] [place] [address] Hemoglobin (Bld) [Mass/Vol] 12.6 g/dL Low 13.5-16.5 [facility] ([place]) Comment on above: Performed By: #### 9 4500-6 #### [facility] [address] [place] [address] Lymphocytes Auto (Unsp spec) [#/Vol] 1.4 10*3/uL Normal 1.10-4.80 [facility] ([place]) Comment on above: Performed By: #### 9 4500-6 #### [facility] [address] [place] [address] Lymphocytes/100 WBC (Bld) 19.9 % Low 24.0-44.0 [facility] ([place]) Comment on above: Performed By: #### 9 4500-6 #### [facility] [address] [place] [address] MCH (RBC) [Entitic mass] 28.9 pg Normal 28.0-34.0 [facility] ([place]) Comment on above: Performed By: #### 9 4500-6 #### [facility] [address] [place] [address] MCHC (RBC) [Mass/Vol] 33.5 g/dL Normal 33.0-37.0 [facility] ([place]) Comment on above: Performed By: #### 9 4500-6 #### [address] [address] MCV (RBC) [Entitic vol] 86.3 fL Normal 80.0-100.0 [facility] ([place]) Comment on above: Performed By: #### 9 4500-6 #### [address] [address] Monocytes (Bld) [#/Vol] 0.5 10*3/uL Normal 0.20-0.70 [facility] ([place]) Comment on above: Performed By: #### 9 4500-6 #### [address] [address] Monocytes/100 WBC (Bld) 7.2 % Normal 3.4-9.0 [facility] ([place]) Comment on above: Performed By: #### 9 4500-6 #### [address] [address] Neutrophils (Bld) [#/Vol] 4.9 10*3/uL Normal 1.83-8.70 [facility] ([place]) Comment on above: Performed By: #### 9 4500-6 #### [address] [address] Neutrophils/100 WBC (Bld) 69.3 % Normal 40.0-74.0 [facility] ([place]) Comment on above: Performed By: #### 9 4500-6 #### [address] [address] Platelet mean volume (Bld) [Entitic vol] 6.6 fL Low 7.4-10.4 [facility] ([place]) Comment on above: Performed By: #### 9 4500-6 #### [address] [address] Platelets (Bld) [#/Vol] 147 10*3/uL Low 150-450 [facility] ([place]) Comment on above: Performed By: #### 9 4500-6 #### [facility] [address] [place] [address] RBC (Bld) [#/Vol] 4.36 10*6/uL Low 4.50-5.50 [facility] ([place]) Comment on above: Performed By: #### 9 4500-6 #### [facility] [address] [place] [address] WBC (Bld) [#/Vol] 7.1 10*3/uL Normal 4.5-11.0 [facility] ([place]) Comment on above: Performed By: #### 9 4500-6 #### [facility] [address] [place] [address] CO2 (BldV) [Moles/Vol]Ordere d By: Thompson Hayden on 05-31-2022 CO2 [Moles/Vol] 28.6 mmol/L [facility] CT chest wo conon 05-31-2022 CT chest wo [address] [address] [address] Scan Report Signed Patient: CHARLI PORRAS#: [id number] : 1950 Acct:[id number] Age/Sex: 72 / M Admit Date: 05/31/22 Loc: 2T 2014- Attending Dr: Naresh Sainz DO Ordering Physician: Naresh Sainz DO Date of Service: 05/31/22 Procedure(s): CT chest wo con Accession Number(s): [id number] cc: Naresh Sainz DO INDICATION: Shortness of [...] 09 Signed By: Radu Carvalho MD 05/31/222125 Kosher Sealer: Normal [facility] Comprehensive metabolic 2000 panelon 05-31-2022 Albumin [Mass/Vol] 3.2 g/dL Low 3.4-4.8 [facility]) Comment on above: Performed By: #### 4 1653-7 #### [facility] [address] [place] [address] Albumin/Globulin [Mass ratio] 0.8 {ratio} Low 1.1-2.2 [facility]) Comment on above: Performed By: #### 4 1653-7 #### [facility] [address] [place] [address] ALP [Catalytic activity/Vol] 72 U/L Normal 42-121 [facility]) Comment on above: Performed By: #### 4 1653-7 #### [facility] [address] [place] [address] ALT [Catalytic activity/Vol] 23 U/L Normal 10-63 [facility]) Comment on above: Performed By: #### 4 1653-7 #### [facility] [address] [place] [address] Anion gap [Moles/Vol] 10.0 mmol/L Normal 3-11 [facility]) Comment on above: Performed By: #### 4 1653-7 #### [facility] [address] [place] [address] AST [Catalytic activity/Vol] 22 U/L Normal 10-41 [facility] ([place]) Comment on above: Performed By: #### 4 1653-7 #### [facility] [address] [place] [address] Bilirubin [Mass/Vol] 0.8 mg/dL Normal 0.3-1.5 [facility] ([place]) Comment on above: Performed By: #### 4 1653-7 #### [facility] [address] [place] [address] Calcium [Mass/Vol] 8.8 mg/dL Normal 8.5-10.5 [facility] ([place]) Comment on above: Performed By: #### 4 1653-7 #### [facility] [address] [place] [address] Chloride [Moles/Vol] 99 mmol/L Normal 98-107 [facility] ([place]) Comment on above: Performed By: #### 4 1653-7 #### [facility] [address] [place] [address] CO2 [Moles/Vol] 25 mmol/L Normal 21-31 [facility] ([place]) Comment on above: Performed By: #### 4 1653-7 #### [facility] [address] [place] [address] Creatinine [Moles/Vol] 1.2 mg/dL Normal 0.6-1.3 [facility] ([place]) Comment on above: Performed By: #### 4 1653-7 #### [facility] [address] [place] [address] Creatinine and Glomerular filtration rate.predicted panel (S/P/Bld) 72 mL/min Normal >60 [facility] ([place]) Comment on above: Performed By: #### 4 1653-7 #### [address] [address] GFR/1.73 sq M.predicted among non-blacks MDRD (S/P/Bld) [Vol rate/Area] 59 mL/min/{1.73_m2} Normal >60 [facility] ([place]) Comment on above: Performed By: #### 4 1653-7 #### [facility] [address] [place] [address] Globulin (S) [Mass/Vol] 3.8 g/dL Normal 1.9-3.9 [facility] ([place]) Comment on above: Performed By: #### 4 1653-7 #### [address] [address] Glucose [Mass/Vol] 195 mg/dL High 70-99 [facility] ([place]) Comment on above: Performed By: #### 4 1653-7 #### [address] [address] Potassium [Moles/Vol] 3.6 mmol/L Normal 3.6-5.0 [facility] ([place]) Comment on above: Performed By: #### 4 1653-7 #### [address] [address] Protein [Mass/Vol] 7.0 g/dL Normal 5.9-7.8 [facility] ([place]) Comment on above: Performed By: #### 4 1653-7 #### [address] [address] Sodium [Moles/Vol] 134 mmol/L Low 135-145 [facility] ([place]) Comment on above: Performed By: #### 4 1653-7 #### [address] [address] Urea nitrogen [Mass/Vol] 17 mg/dL Normal 6-20 [facility] ([place]) Comment on above: Performed By: #### 4 1653-7 #### [facility] [address] [place] [address] Detection in urine of either or both bilirubin and urobilinogenOrdered By: Thompson Hayden on 05-31-2022 Bilirubin+Urobilinogen Ql (U) Negative NEGATIVE [facility] Gas panel (BldV)on CO2 (BldV) [Partial pressure] 48 mm[Hg] Normal 39-55 [facility] ([place]) Comment on above: Performed By: #### C D #### [facility] [address] [place] [address] CO2 [Moles/Vol] 28.6 mmol/L Normal 23-29 [facility] ([place]) Comment on above: Performed By: #### C D #### [facility] [address] [place] [address] HCO3 (Bld) [Moles/Vol] 27.1 mmol/L Normal 22-28 [facility] ([place]) Comment on above: Performed By: #### C D #### [facility] [address] [place] [address] Oxygen (BldV) [Partial pressure] 62.0 mm[Hg] High 30-50 [facility] ([place]) Comment on above: Performed By: #### C D #### [facility] [address] [place] [address] pH (BldV) 7.36 [pH] Normal 7.31-7.42 [facility] ([place]) Comment on above: Performed By: #### C D #### [facility] [address] [place] [address] VBG Oxygen Saturation 90 % High 50-85 [facility] ([place]) Comment on above: Performed By: #### C D #### [facility] [address] [place] [address] Glucose Glucometer (BldC) [M ass/Vol]on 05-31-2022 Glucose [Mass/Vol] 264 mg/dL Normal 70-99 [facility] ([place]) Comment on above: Performed By: #### 6 30-4 #### [facility] [address] [place] [address] Glucose [Mass/volume] in Uri ne by Automated test stripOrdered By: Thompson Hayden on 05-31-2022 Glucose Auto test strip (U) [Mass/Vol] 1000 mg/dL NEGATIVE [facility] HCO3 (BldV) [Moles/Vol]Order ed By: Thompson Hayden on 05-31-2022 HCO3 (Bld) [Moles/Vol] 27.1 mmol/L [facility] Influenza A,B [facility] by PCRon 05-31-2022 FLUBV Ag Ql (Unsp spec) Negative Normal Negative [facility] ([place]) Comment on above: Performed By: #### 4 1653-7 #### [facility] [address] [place] [address] Rapid Flu A Negative Normal Negative [facility] ([place]) Comment on above: Performed By: #### 4 1653-7 #### [facility] [address] [place] [address] Lactate (Bld) [Moles/Vol]on 05-31-2022 Lactate [Moles/Vol] 1.7 mmol/L Normal 0.5-2.0 [facility] ([place]) Comment on above: Performed By: #### C D #### [facility] [address] [place] [address] Lactate (Bld) [Moles/Vol]Ord ered By: Thompson Hayden on 05-31-2022 Lactate [Moles/Vol] 1.7 mmol/L 0.5-2.0 [facility] Leukocytes detection in urin e sediment by light microscopyOrdered By: Thompson Hayden on 05-31-2022 WBC LM Ql (Urine sed) >100 /HPF NONE SEEN [facility] Magnesium Bld-mCncon 01-28-2 023 Magnesium (Bld) [Mass/Vol] 1.6 mEq/L Normal 1.6-2.6 [facility] ([place]) Comment on above: Performed By: #### 4 1653-7 #### [facility] [address] [place] [address] Microscopic examination of u rineOrdered By: Thompson Hayden on 05-31-2022 Microscopic observation LM Nom (Urine sed) Yes [facility] Microscopic observation LM N om (Urine sed)on 05-31-2022 Bacteria LM Ql (Urine sed) 1+ /HPF Normal NONE SEEN [facility] ([place]) Comment on above: Order Comment: Urine Collect Clean Catch Performed By: #### 4 1653-7 #### [facility] [address] [place] [address] Yeast.budding LM.HPF (Urine sed) [#/Area] FEW Normal NONE SEEN [facility] ([place]) Comment on above: Order Comment: Urine Collect Clean Catch Performed By: #### 4 1653-7 #### [facility] [address] [place] [address] Leukocyte clumps Auto (Urine sed) [#/Area] MODERATE Normal NONE SEEN [facility] ([place]) Comment on above: Order Comment: Urine Collect Clean Catch Performed By: #### 4 1653-7 #### [facility] [address] [place] [address] RBC Ql (U) 20-50 Normal NONE SEEN [facility] ([place]) Comment on above: Order Comment: Urine Collect Clean Catch Performed By: #### 4 1653-7 #### [facility] [address] [place] [address] Transitional cells LM Ql (Urine sed) OCCASIONAL Normal NONE SEEN [facility] ([place]) Comment on above: Order Comment: Urine Collect Clean Catch Performed By: #### 4 1653-7 #### [facility] [address] [place] [address] WBC LM Ql (Urine sed) >100 Normal NONE SEEN [facility] ([place]) Comment on above: Order Comment: Urine Collect Clean Catch Performed By: #### 4 1653-7 #### [facility] [address] [place] [address] Natriuretic peptide B [Mass/ Vol]on 05-31-2022 Natriuretic peptide B (Bld) [Mass/Vol] 15 pg/mL Normal 0-100 [facility] ([place]) Comment on above: Performed By: #### 4 1653-7 #### [facility] [address] [place] [address] Natriuretic peptide B [Mass/ Vol]Ordered By: Thompson Hayden on 05-31-2022 Natriuretic peptide B (Bld) [Mass/Vol] 15 pg/mL 0-100 [facility] No Panel InformationOrdered By: Thompson Hayden on 05-31-2022 Urine Culture Reflexed Reflexed to culture [facility] Comment on above: A Urine Culture has been added to this specimen. Influenza Type A (Rapid) Negative Negative [facility] Procalcitonin < 0.05 ng/mL 0.10-0.50 [facility] Comment on above: *PROCALCITONIN INTER PRETATION*Less than 0.5: Low risk for systemic infection.0.5 to 2.0: Moderate risk for systemic infection.Greater than 2.0: High risk for systemic infection.10.0 or greater: Likelihood of severe sepsis or septic shock. Venous Blood Oxygen Saturation 90 % 50-85 [facility] Procalcitoninon 05-31-2022 Procalcitonin < 0.05 Normal 0.10-0.50 [facility] ([place]) Comment on above: Result Comment: *PRO CALCITONIN INTERPRETATION* Less than 0.5: Low risk for systemic infection. 0.5 to 2.0: Moderate risk for systemic infection. Greater than 2.0: High risk for systemic infection. 10.0 or greater: Likelihood of severe sepsis or septic shock. Performed By: #### 4 1653-7 #### [facility] [address] [place] [address] Prothrombin Time on Coumadin on 01-28-2023 INR Coag (PPP) [Relative time] 1.72 {INR} Low 2.00-3.50 [facility] ([place]) Comment on above: Performed By: #### 6 30-4 #### [facility] [address] [place] [address] RBC LM Ql (Urine sed)Ordered By: Thompson Hayden on 05-31-2022 RBC Ql (U) 20-50 /HPF NONE SEEN [facility] Rapid influenza B antigen de tectionOrdered By: Thompson Hayden on 05-31-2022 FLUBV Ag Ql (Unsp spec) Negative Negative [facility] Respiratory specimen COVID-1 9 virus RNA detectionOrdered By: Thompson Hayden on 05-31-2022 SARS-CoV-2 (COVID-19) RNA LIV+probe Ql (Resp) [facility] SARS-CoV2 PCRon 05-31-2022 SARS-CoV-2 (COVID-19) RNA [...] authorization is terminated or revoked sooner. Normal [facility] ([place]) Comment on above: Performed By: #### 9 4500-6 #### [facility] [address] [place], [place] [address] Serum globulin measurement ( mass/volume)Ordered By: Thompson Jackelyn on 05-31-2022 Globulin (S) [Mass/Vol] 3.8 g/dL 1.9-3.9 [facility] Specific gravity of UrineOrd ered By: Thompson Jackelyn on 05-31-2022 Specific gravity (U) [Rel density] 1.020 1.001-1.035 [facility] Total protein bloodOrdered B y: Thompson Hayden on 05-31-2022 Protein [Mass/Vol] 7.0 g/dL 5.9-7.8 [facility] Transitional cells detection in urine sediment by light microscopyOrdered By: Thompson Hayden on 05-31-2022 Transitional cells LM Ql (Urine sed) Occasional /HPF NONE SEEN [facility] Troponin I SerPl-mCncon 05-05 Troponin I.cardiac [Mass/Vol] 0.04 ng/mL High <0.03 [facility] ([place]) Comment on above: Performed By: #### 4 1653-7 #### [facility] [address] [place] [address] Troponin I ser/plasOrdered B y: Thompson Hayden on 05-31-2022 Troponin I.cardiac [Mass/Vol] 0.04 ng/mL <0.03 [facility] Urinalysison 05-31-2022 Bilirubin+Urobilinogen Ql (U) Negative Normal NEGATIVE [facility] ([place]) Comment on above: Order Comment: Urine Collect Clean Catch Performed By: #### 4 1653-7 #### [facility] [address] [place] [address] Ketones Ql (U) TRACE Abnormal NEGATIVE [facility] ([place]) Comment on above: Order Comment: Urine Collect Clean Catch Performed By: #### 4 1653-7 #### [facility] [address] [place] [address] Nitrate Ql (U) Negative Normal NEGATIVE [facility] ([place]) Comment on above: Order Comment: Urine Collect Clean Catch Performed By: #### 4 1653-7 #### [facility] [address] [place] [address] RBC Ql (U) SMALL Abnormal NEGATIVE [facility] ([place]) Comment on above: Order Comment: Urine Collect Clean Catch Performed By: #### 4 1653-7 #### [facility] [address] [place] [address] Urobilinogen (U) [Mass/Vol] Negative Normal NEGATIVE [facility] ([place]) Comment on above: Order Comment: Urine Collect Clean Catch Performed By: #### 4 1653-7 #### [facility] [address] [place] [address] WBC Visual Ql (U) MODERATE Abnormal NEGATIVE [facility] ([place]) Comment on above: Order Comment: Urine Collect Clean Catch Performed By: #### 4 1653-7 #### [facility] [address] [place] [address] Appearance (U) CLOUDY Normal [facility] ([place] Comment on above: Order Comment: Urine Collect Clean Catch Performed By: #### 4 1653-7 #### [facility] [address] [place] [address] Color (U) YELLOW Normal [facility] ([place]) Comment on above: Order Comment: Urine Collect Clean Catch Performed By: #### 4 1653-7 #### [facility] [address] [place] [address] Glucose Auto test strip (U) [Mass/Vol] 1000 mg/dL Abnormal NEGATIVE [facility] ([place] Comment on above: Order Comment: Urine Collect Clean Catch Performed By: #### 4 1653-7 #### [facility] [address] [place] [address] pH (U) 6.0 [pH] Normal 4.6-8.0 [facility] ([place]) Comment on above: Order Comment: Urine Collect Clean Catch Performed By: #### 4 1653-7 #### [facility] [address] [place] [address] Protein Auto test strip Ql (U) 30 mg/dL Abnormal NEGATIVE [facility] ([place] Comment on above: Order Comment: Urine Collect Clean Catch Performed By: #### 4 1653-7 #### [facility] [address] [place] [address] Specific gravity (U) [Rel density] 1.020 Normal 1.001-1.035 [facility] ([place]) Comment on above: Order Comment: Urine Collect Clean Catch Performed By: #### 4 1653-7 #### [facility] [address] [place] [address] Urine blood detectionOrdered By: Thompson Hayden on 05-31-2022 RBC Ql (U) Small NEGATIVE [facility] Urine colorOrdered By: Owen Hayden on 05-31-2022 Color (U) Yellow [facility] Urine ketones detectionOrder ed By: Thompson Hayden on 05-31-2022 Ketones Ql (U) Trace mg/dL NEGATIVE [facility] Urine leukocytes detection b y microscopyOrdered By: Thompson Hayden on 05-31-2022 WBC Visual Ql (U) Moderate NEGATIVE [facility] Urine nitrate detectionOrder ed By: Thompson Hayden on 05-31-2022 Nitrate Ql (U) Negative NEGATIVE [facility] Urine pHOrdered By: Thompson springer on 05-31-2022 pH (U) 6.0 [pH] 4.6-8.0 [facility] Urine protein detection by a utomated test stripOrdered By: Thompson Hayden on 05-31-2022 Protein Auto test strip Ql (U) 30 mg/dL NEGATIVE [facility] Urobilinogen Test strip (U) [Mass/Vol]Ordered By: Thompson Hayden on 05-31-2022 Urobilinogen (U) [Mass/Vol] Negative NEGATIVE [facility] Venous blood pH measurementO rdered By: Thompson Hayden on 05-31-2022 pH (BldV) 7.36 [pH] 7.31-7.42 [facility] Venous blood partial pressur e of carbon dioxide measurementOrdered By: Thompson Hayden on 05-31-2022 CO2 (BldV) [Partial pressure] 48 mm[Hg] 39-55 [facility] Venous blood partial pressur e of oxygen measurementOrdered By: Thompson Hayden on 05-31-2022 Oxygen (BldV) [Partial pressure] 62.0 mm[Hg] 30-50 [facility] XR chest 1V portableon 05-31 XR chest 1V portable [facility] [address] [place] [address] XRay Report Signed Patient: CHARLI PORRAS R#: [id number] : 1950 Acct:[id number] Age/Sex: 72 / M Admit Date: 05/31/22 Loc: ER Attending Dr: Ordering Physician: Thompson Hayden MD Date of Service: 05/31/22 Procedure(s): XR chest 1V portable Accession Number(s): [id number] cc: Thompson Hayden MD INDICATION: Shortness of [...] Signed By: Garcia Reeves MD 05/31/22 1510 Kosher Sealer: Normal [facility] ([place]) Aerobic and anaerobic cultur e blood cultureOrdered By: Thompson Hayden on 04-25-2022 Bacteria identified Anaer+Aer cx Nom (Unsp spec) NO GROWTH 5 DAYS [facility] Gabapentin SerPl-sCncon 04-04 Gabapentin [Moles/Vol] 9.4 ug/mL Normal 4.0-16.0 [facility] ([place]) Comment on above: Result Comment: Dete ction Limit = 1.0 Performed at: [address] [id number] [employer]: Martha Gaming MD, Phone: [phone] Performed By: #### 6 30-4 #### [facility] [address] [place], [place] [id number] Reflex Urn Culton 04-24-2022 Bacteria identified Cx Nom (U) ORGANISM ID: 1.1 - Presumptive Callie glabrata Daykin Count 50,000-100,000 CFU/ml Normal [facility] ([place]) Comment on above: Performed By: #### 6 30-4 #### [facility] [address] [place], [place] [address] Urine culture routineOrdered By: Judy Pompura on 04-24-2022 Bacteria identified Cx Nom (U) Presumptive Callie glabrata [facility] ALT (SGPT) ser/plasOrdered B y: Judy Pompura on 04-23-2022 ALT [Catalytic activity/Vol] 39 U/L 10-63 [facility] Absolute lymphocyte countOrd ered By: Judy Pompura on 04-23-2022 Lymphocytes Auto (Unsp spec) [#/Vol] 1.3 10*3/uL 1.10-4.80 [facility] Albumin [Mass/volume] in Ser um or PlasmaOrdered By: Judy Pompura on 04-23-2022 Albumin [Mass/Vol] 3.1 g/dL 3.4-4.8 [facility] Albumin/Globulin [Mass Ratio ] in Serum or PlasmaOrdered By: Judy Pompura on 04-23-2022 Albumin/Globulin [Mass ratio] 0.9 {ratio} 1.1-2.2 [facility] Alkaline phosphatase [Enzyma tic activity/volume] in Serum or PlasmaOrdered By: Judy Pompura on 04-23-2022 ALP [Catalytic activity/Vol] 80 U/L 42-121 [facility] Aspartate aminotransferase [ Enzymatic activity/volume] in Serum or PlasmaOrdered By: Judy Pompura on 04-23-2022 AST [Catalytic activity/Vol] 42 U/L 10-41 [facility] Basophils Auto (Bld) [#/Vol] Ordered By: Judy Pompura on 04-23-2022 Basophils (Bld) [#/Vol] 0.1 10*3/uL 0.00-0.20 [facility] Basophils/100 WBC Auto (Bld) Ordered By: Judy Pompura on 04-23-2022 Basophils/100 WBC (Bld) 1.0 % 0.0-1.5 [facility] Bilirubin.total [Mass/volume ] in Serum or PlasmaOrdered By: Judy Pompura on 04-23-2022 Bilirubin [Mass/Vol] 1.1 mg/dL 0.3-1.5 [facility] CBC W/ Auto Diffon Basophils (Bld) [#/Vol] 0.1 10*3/uL Normal 0.00-0.20 [facility] ([place]) Comment on above: Performed By: #### 9 4500-6 #### [facility] [address] [place] [address] Basophils/100 WBC (Bld) 1.0 % Normal 0.0-1.5 [facility] ([place]) Comment on above: Performed By: #### 9 4500-6 #### [facility] [address] [place] [address] Eosinophils (Bld) [#/Vol] 0.3 10*3/uL Normal 0.00-0.33 [facility] ([place]) Comment on above: Performed By: #### 9 4500-6 #### [facility] [address] [place] [address] Eosinophils/100 WBC (Bld) 4.7 % High 0.0-3.0 [facility] ([place]) Comment on above: Performed By: #### 9 4500-6 #### [facility] [address] [place] [address] Erythrocyte distribution width (RBC) [Ratio] 13.5 % Normal 10.9-14.3 [facility] ([place]) Comment on above: Performed By: #### 9 4500-6 #### [facility] [address] [place] [address] Hematocrit (Bld) [Volume fraction] 39.7 % Low 41.0-50.0 [facility] ([place]) Comment on above: Performed By: #### 9 4500-6 #### [facility] [address] [place] [address] Hemoglobin (Bld) [Mass/Vol] 13.3 g/dL Low 13.5-16.5 [facility] ([place]) Comment on above: Performed By: #### 9 4500-6 #### [facility] [address] [place] [address] Lymphocytes Auto (Unsp spec) [#/Vol] 1.3 10*3/uL Normal 1.10-4.80 [facility] ([place]) Comment on above: Performed By: #### 9 4500-6 #### [facility] [address] [place] [address] Lymphocytes/100 WBC (Bld) 18.2 % Low 24.0-44.0 [facility] ([place]) Comment on above: Performed By: #### 9 4500-6 #### [facility] [address] [place] [address] MCH (RBC) [Entitic mass] 29.4 pg Normal 28.0-34.0 [facility] ([place]) Comment on above: Performed By: #### 9 4500-6 #### [facility] [address] [place] [address] MCHC (RBC) [Mass/Vol] 33.5 g/dL Normal 33.0-37.0 [facility] ([place]) Comment on above: Performed By: #### 9 4500-6 #### [facility] [address] [place] [address] MCV (RBC) [Entitic vol] 88.0 fL Normal 80.0-100.0 [facility] ([place]) Comment on above: Performed By: #### 9 4500-6 #### [address] [address] Monocytes (Bld) [#/Vol] 0.7 10*3/uL Normal 0.20-0.70 [facility] ([place]) Comment on above: Performed By: #### 9 4500-6 #### [address] [address] Monocytes/100 WBC (Bld) 10.1 % High 3.4-9.0 [facility] ([place]) Comment on above: Performed By: #### 9 4500-6 #### [address] [address] Neutrophils (Bld) [#/Vol] 4.6 10*3/uL Normal 1.83-8.70 [facility] ([place]) Comment on above: Performed By: #### 9 4500-6 #### [address] [address] Neutrophils/100 WBC (Bld) 66.0 % Normal 40.0-74.0 [facility] ([place]) Comment on above: Performed By: #### 9 4500-6 #### [address] [address] Platelet mean volume (Bld) [Entitic vol] 7.6 fL Normal 7.4-10.4 [facility] ([place]) Comment on above: Performed By: #### 9 4500-6 #### [address] [address] Platelets (Bld) [#/Vol] 163 10*3/uL Normal 150-450 [facility] ([place]) Comment on above: Performed By: #### 9 4500-6 #### [address] [address] RBC (Bld) [#/Vol] 4.51 10*6/uL Normal 4.50-5.50 [facility] ([place]) Comment on above: Performed By: #### 9 4500-6 #### [facility] [address] [place] [address] WBC (Bld) [#/Vol] 7.0 10*3/uL Normal 4.5-11.0 [facility] ([place]) Comment on above: Performed By: #### 9 4500-6 #### [facility] [address] [place] [address] Carbon dioxide, total [Moles /volume] in Serum or PlasmaOrdered By: Judy Pompura on 04-23-2022 CO2 [Moles/Vol] 23 mmol/L [facility] Chloride [Moles/volume] in S maricel or PlasmaOrdered By: Judy Pompura on 04-23-2022 Chloride [Moles/Vol] 102 mmol/L 98-107 [facility] Comprehensive metabolic 2000 panelon 04-23-2022 Albumin [Mass/Vol] 3.1 g/dL Low 3.4-4.8 [facility] ([place]) Comment on above: Performed By: #### 3 2693-4 #### [facility] [address] [place] [address] Albumin/Globulin [Mass ratio] 0.9 {ratio} Low 1.1-2.2 [facility] ([place]) Comment on above: Performed By: #### 3 2693-4 #### [facility] [address] [place] [address] ALP [Catalytic activity/Vol] 80 U/L Normal 42-121 [facility] ([place]) Comment on above: Performed By: #### 3 2693-4 #### [facility] [address] [place] [address] ALT [Catalytic activity/Vol] 39 U/L Normal 10-63 [facility] ([place]) Comment on above: Performed By: #### 3 2693-4 #### [facility] [address] [place] [address] Anion gap [Moles/Vol] 10.0 mmol/L Normal 3-11 [facility] ([place]) Comment on above: Performed By: #### 3 2693-4 #### [facility] [address] [place] [address] AST [Catalytic activity/Vol] 42 U/L High 10-41 [facility] ([place]) Comment on above: Performed By: #### 3 2693-4 #### [facility] [address] [place] [address] Bilirubin [Mass/Vol] 1.1 mg/dL Normal 0.3-1.5 [facility] ([place]) Comment on above: Performed By: #### 3 2693-4 #### [facility] [address] [place] [address] Calcium [Mass/Vol] 8.5 mg/dL Normal 8.5-10.5 [facility] ([place]) Comment on above: Performed By: #### 3 2693-4 #### [facility] [address] [place] [address] Chloride [Moles/Vol] 102 mmol/L Normal 98-107 [facility] ([place]) Comment on above: Performed By: #### 3 2693-4 #### [facility] [address] [place] [address] CO2 [Moles/Vol] 23 mmol/L Normal 21-31 [facility] ([place]) Comment on above: Performed By: #### 3 2693-4 #### [facility] [address] [place] [address] Creatinine [Moles/Vol] 1.1 mg/dL Normal 0.6-1.3 [facility] ([place]) Comment on above: Performed By: #### 3 2693-4 #### [facility] [address] [place] [address] Creatinine and Glomerular filtration rate.predicted panel (S/P/Bld) 80 mL/min Normal >60 [facility] ([place]) Comment on above: Performed By: #### 3 2693-4 #### [facility] [address] [place] [address] GFR/1.73 sq M.predicted among non-blacks MDRD (S/P/Bld) [Vol rate/Area] 66 mL/min/{1.73_m2} Normal >60 [facility] ([place]) Comment on above: Performed By: #### 3 2693-4 #### [facility] [address] [place] [address] Globulin (S) [Mass/Vol] 3.5 g/dL Normal 1.9-3.9 [facility] ([place]) Comment on above: Performed By: #### 3 2693-4 #### [facility] [address] [place] [address] Glucose [Mass/Vol] 244 mg/dL High 70-99 [facility] ([place]) Comment on above: Performed By: #### 3 2693-4 #### [facility] [address] [place] [address] Potassium [Moles/Vol] 3.8 mmol/L Normal 3.6-5.0 [facility] ([place]) Comment on above: Performed By: #### 3 2693-4 #### [facility] [address] [place] [address] Protein [Mass/Vol] 6.6 g/dL Normal 5.9-7.8 [facility] ([place]) Comment on above: Performed By: #### 3 2693-4 #### [address] [address] Sodium [Moles/Vol] 135 mmol/L Normal 135-145 [facility] ([place]) Comment on above: Performed By: #### 3 2693-4 #### [address] [place] [address] Urea nitrogen [Mass/Vol] 20 mg/dL Normal 6-20 [facility] ([place]) Comment on above: Performed By: #### 3 2693-4 #### [facility] [address] [place], [place] [id number] (152) Creatinine and Glomerular fi ltration rate.predicted panel (S/P/Bld)Ordered By: Ujdy Pompura on 04-23-2022 GFR/1.73 sq M.predicted MDRD (S/P/Bld) [Vol rate/Area] 80 mL/min/{1.73_m2} >60 [facility] Eosinophils Auto (Bld) [#/Vo l]Ordered By: Judy Pompura on 04-23-2022 Eosinophils (Bld) [#/Vol] 0.3 10*3/uL 0.00-0.33 [facility] Eosinophils/100 WBC Auto (Bl d)Ordered By: Judy Pompura on 04-23-2022 Eosinophils/100 WBC (Bld) 4.7 % 0.0-3.0 [facility] Erythrocyte distribution wid th Auto (RBC) [Ratio]Ordered By: Judy Pompura on 04-23-2022 Erythrocyte distribution width (RBC) [Ratio] 13.5 % 10.9-14.3 [facility] Estimated glomerular filtrat ion rate (GFR) non- AmericanOrdered By: Judy Pompura on 04-23-2022 GFR/1.73 sq M.predicted among non-blacks MDRD (S/P/Bld) [Vol rate/Area] 66 mL/min/{1.73_m2} >60 [facility] Glucose Glucometer (BldC) [M ass/Vol]on 04-23-2022 Glucose [Mass/Vol] 214 mg/dL Normal 70-99 [facility] ([place]) Comment on above: Performed By: #### 9 4500-6 #### [facility] [address] [place], [place] [id number] (864) Glucose [Mass/Vol] 360 mg/dL Normal 70-99 [facility] ([place]) Comment on above: Performed By: #### 4 1653-7 #### [facility] [address] [place], [place] [address] Glucose Glucometer (BldC) [M ass/Vol]Ordered By: Verito Devi on 04-23-2022 Glucose [Mass/Vol] 214 mg/dL 70-99 [facility] Hematocrit Auto (Bld) [Volum e fraction]Ordered By: Judy Faulknerpmayra on 04-23-2022 Hematocrit (Bld) [Volume fraction] 39.7 % 41.0-50.0 [facility] Hemoglobin A1con 04-23-2022 Average glucose Estimated from glycated hemoglobin (Bld) [Mass/Vol] 255 mg/dL Normal [facility] ([place]) Comment on above: Performed By: #### 2 1020-3 #### [facility] [address] [place] [address] (079) HbA1c (Bld) [Mass fraction] 10.5 % High 4.0-6.0 [facility] ([place]) Comment on above: Performed By: #### 2 1020-3 #### [facility] [address] [place], [place] [address] (774) Hemoglobin [Mass/volume] in BloodOrdered By: Judy Pompura on 04-23-2022 Hemoglobin (Bld) [Mass/Vol] 13.3 g/dL 13.5-16.5 [facility] Lymphocytes/100 WBC Auto (Bl d)Ordered By: Judy Pompura on 04-23-2022 Lymphocytes/100 WBC (Bld) 18.2 % 24.0-44.0 [facility] MCH Auto (RBC) [Entitic mass ]Ordered By: Judy Pompura on 04-23-2022 MCH (RBC) [Entitic mass] 29.4 pg 28.0-34.0 [facility] MCHC Auto (RBC) [Mass/Vol]Or dered By: Judy Pompura on 04-23-2022 MCHC (RBC) [Mass/Vol] 33.5 g/dL 33.0-37.0 [facility] MCV (mean corpuscular volume ) determinationOrdered By: Judy Boo on 04-23-2022 MCV (RBC) [Entitic vol] 88.0 fL 80.0-100.0 [facility] Monocytes Auto (Bld) [#/Vol] Ordered By: Judy Pompura on 04-23-2022 Monocytes (Bld) [#/Vol] 0.7 10*3/uL 0.20-0.70 [facility] Monocytes/100 WBC Auto (Bld) Ordered By: Judy Pompura on 04-23-2022 Monocytes/100 WBC (Bld) 10.1 % 3.4-9.0 [facility] Neutrophils Auto (Bld) [#/Vo l]Ordered By: Judy Pompura on 04-23-2022 Neutrophils (Bld) [#/Vol] 4.6 10*3/uL 1.83-8.70 [facility] Neutrophils/100 WBC Auto (Bl d)Ordered By: Judy Pompura on 04-23-2022 Neutrophils/100 WBC (Bld) 66.0 % 40.0-74.0 [facility] No Panel InformationOrdered By: Judy Boo on 04-23-2022 Anticoagulation Therapy See comment [facility] Comment on above: Suggested Therapy Ra nge: 2.0 - 3.5 Platelet mean volume Auto (B ld) [Entitic vol]Ordered By: Judy Kaushikpura on 04-23-2022 Platelet mean volume (Bld) [Entitic vol] 7.6 fL 7.4-10.4 [facility] Platelet poor plasma interna tional normalized ratio (INR) by coagulation assay (relatOrdered By: Judy Boo on 04-23-2022 INR Coag (PPP) [Relative time] 2.25 {INR} 2.00-3.50 [facility] Platelets Auto (Bld) [#/Vol] Ordered By: Judy Pompura on 04-23-2022 Platelets (Bld) [#/Vol] 163 10*3/uL 150-450 [facility] Potassium [Moles/volume] in Serum or PlasmaOrdered By: Judy Boo on 04-23-2022 Potassium [Moles/Vol] 3.8 mmol/L 3.6-5.0 [facility] Prothrombin Time on Coumadin on 04-23-2022 INR Coag (PPP) [Relative time] 2.25 {INR} Normal 2.00-3.50 [facility] ([place]) Comment on above: Performed By: #### 6 30-4 #### [facility] [address] [place] [address] RBC Auto (Bld) [#/Vol]Ordere d By: Judy Boo on 04-23-2022 RBC (Bld) [#/Vol] 4.51 10*6/uL 4.50-5.50 [facility] Serum globulin measurement ( mass/volume)Ordered By: Judy Boo on 04-23-2022 Globulin (S) [Mass/Vol] 3.5 g/dL 1.9-3.9 [facility] Serum glucose measurement (m ass/volume)Ordered By: Judy Boo on 04-23-2022 Glucose [Mass/Vol] 244 mg/dL 70-99 [facility] Serum or plasma anion gap de termination (moles/volume)Ordered By: Judy Boo on 04-23-2022 Anion gap [Moles/Vol] 10.0 mmol/L 3-11 [facility] Serum or plasma calcium maricel urement (mass/volume)Ordered By: Judy Boo on 04-23-2022 Calcium [Mass/Vol] 8.5 mg/dL 8.5-10.5 [facility] Serum or plasma creatinine m easurement (moles/volume)Ordered By: Judy Boo on 04-23-2022 Creatinine [Moles/Vol] 1.1 mg/dL 0.6-1.3 [facility] Serum or plasma sodium measu rement (moles/volume)Ordered By: Judy Boo on 04-23-2022 Sodium [Moles/Vol] 135 mmol/L 135-145 [facility] Serum or plasma urea nitroge n measurement (mass/volume)Ordered By: Judy Kaushikpura on 04-23-2022 Urea nitrogen [Mass/Vol] 20 mg/dL 10-21 [facility] Total protein bloodOrdered B y: Judy Rexura on 04-23-2022 Protein [Mass/Vol] 6.6 g/dL 5.9-7.8 [facility] WBC Auto (Bld) [#/Vol]Ordere d By: Judy Pompura on 04-23-2022 WBC (Bld) [#/Vol] 7.0 10*3/uL 4.5-11.0 [facility] Ammonia Spec-mCncon 04-22-20 Ammonia (Unsp spec) [Mass/Vol] 16 umol/L Normal [facility] ([place]) Comment on above: Performed By: #### 6 30-4 #### [facility] [address] [place], [place] [id number] (265) Ammonia measurement (mass/vo lume)Ordered By: Judy Faulknerpmayra on 04-22-2022 Ammonia (Unsp spec) [Mass/Vol] 16 umol/L [facility] Appearance urOrdered By: Karina Boo on 04-22-2022 Appearance (U) Clear [facility] Automated urine sediment bud ding yeast count by microscopy (number/high power field)Ordered By: Judy Kaushikbaironmayra on 04-22-2022 Yeast.budding LM.HPF (Urine sed) [#/Area] Large /HPF NONE SEEN [facility] Automated urine white blood cell countOrdered By: Judy Kaushikpura on 04-22-2022 WBC Auto (U) [#/Vol] >100 /HPF NONE SEEN [facility] Basic Metabolic Panelon 04-04 Anion gap [Moles/Vol] 10.0 mmol/L Normal - [facility] ([place]) Comment on above: Performed By: #### 6 30-4 #### [facility] [address], [place] [id number] Calcium [Mass/Vol] 8.4 mg/dL Low 8.5-10.5 [facility] ([place]) Comment on above: Performed By: #### 6 30-4 #### [facility] [address] [place] [address] Chloride [Moles/Vol] 102 mmol/L Normal 98-107 [facility] ([place]) Comment on above: Performed By: #### 6 30-4 #### [facility] [address] [place] [address] CO2 [Moles/Vol] 20 mmol/L Low 21-31 [facility] ([place]) Comment on above: Performed By: #### 6 30-4 #### [facility] [address] [place] [address] Creatinine [Moles/Vol] 1.2 mg/dL Normal 0.6-1.3 [facility] ([place]) Comment on above: Performed By: #### 6 30-4 #### [facility] [address] [place] [address] Creatinine and Glomerular filtration rate.predicted panel (S/P/Bld) 72 mL/min Normal >60 [facility] ([place]) Comment on above: Performed By: #### 6 30-4 #### [facility] [address] [place] [address] GFR/1.73 sq M.predicted among non-blacks MDRD (S/P/Bld) [Vol rate/Area] 60 mL/min/{1.73_m2} Normal >60 [facility] ([place]) Comment on above: Performed By: #### 6 30-4 #### [facility] [address] [place] [address] Glucose [Mass/Vol] 255 mg/dL High 70-99 [facility] ([place]) Comment on above: Performed By: #### 6 30-4 #### [facility] [address] [place] [address] Potassium [Moles/Vol] 3.3 mmol/L Low 3.6-5.0 [facility] ([place]) Comment on above: Performed By: #### 6 30-4 #### [facility] [address] [place] [address] Sodium [Moles/Vol] 132 mmol/L Low 135-145 [facility] ([place]) Comment on above: Performed By: #### 6 30-4 #### [facility] [address] [place] [address] Urea nitrogen [Mass/Vol] 18 mg/dL Normal 6-20 [facility] ([place]) Comment on above: Performed By: #### 6 30-4 #### [facility] [address] [place] [address] CBC W/ Auto Diffon 2 Basophils (Bld) [#/Vol] 0.1 10*3/uL Normal 0.00-0.20 [facility] ([place]) Comment on above: Performed By: #### 6 30-4 #### [facility] [address] [place] [address] Basophils/100 WBC (Bld) 0.9 % Normal 0.0-1.5 [facility] ([place]) Comment on above: Performed By: #### 6 30-4 #### [facility] [address] [place] [address] Eosinophils (Bld) [#/Vol] 0.2 10*3/uL Normal 0.00-0.33 [facility] ([place]) Comment on above: Performed By: #### 6 30-4 #### [facility] [address] [place] [address] Eosinophils/100 WBC (Bld) 2.8 % Normal 0.0-3.0 [facility] ([place]) Comment on above: Performed By: #### 6 30-4 #### [facility] [address] [place] [address] Erythrocyte distribution width (RBC) [Ratio] 13.5 % Normal 10.9-14.3 [facility] ([place]) Comment on above: Performed By: #### 6 30-4 #### [facility] [address] [place] [address] Hematocrit (Bld) [Volume fraction] 39.4 % Low 41.0-50.0 [facility] ([place]) Comment on above: Performed By: #### 6 30-4 #### [facility] [address] [place] [address] Hemoglobin (Bld) [Mass/Vol] 13.1 g/dL Low 13.5-16.5 [facility] ([place]) Comment on above: Performed By: #### 6 30-4 #### [facility] [address] [place] [address] Lymphocytes Auto (Unsp spec) [#/Vol] 1.1 10*3/uL Normal 1.10-4.80 [facility] ([place]) Comment on above: Performed By: #### 6 30-4 #### [facility] [address] [place] [address] Lymphocytes/100 WBC (Bld) 15.1 % Low 24.0-44.0 [facility] ([place]) Comment on above: Performed By: #### 6 30-4 #### [facility] [address] [place] [address] MCH (RBC) [Entitic mass] 29.1 pg Normal 28.0-34.0 [facility] ([place]) Comment on above: Performed By: #### 6 30-4 #### [facility] [address] [place] [address] MCHC (RBC) [Mass/Vol] 33.2 g/dL Normal 33.0-37.0 [facility] ([place]) Comment on above: Performed By: #### 6 30-4 #### [facility] [address] [place] [address] MCV (RBC) [Entitic vol] 87.7 fL Normal 80.0-100.0 [facility] ([place]) Comment on above: Performed By: #### 6 30-4 #### [facility] [address] [place] [address] Monocytes (Bld) [#/Vol] 0.8 10*3/uL High 0.20-0.70 [facility] ([place]) Comment on above: Performed By: #### 6 30-4 #### [facility] [address] [place] [address] Monocytes/100 WBC (Bld) 11.9 % High 3.4-9.0 [facility] ([place]) Comment on above: Performed By: #### 6 30-4 #### [facility] [address] [place] [address] Neutrophils (Bld) [#/Vol] 4.8 10*3/uL Normal 1.83-8.70 [facility] ([place]) Comment on above: Performed By: #### 6 30-4 #### [facility] [address] [place] [address] Neutrophils/100 WBC (Bld) 69.3 % Normal 40.0-74.0 [facility] ([place]) Comment on above: Performed By: #### 6 30-4 #### [facility] [address] [place] [address] Platelet mean volume (Bld) [Entitic vol] 6.5 fL Low 7.4-10.4 [facility] ([place]) Comment on above: Performed By: #### 6 30-4 #### [facility] [address] [place] [address] Platelets (Bld) [#/Vol] 137 10*3/uL Low 150-450 [facility] ([place]) Comment on above: Performed By: #### 6 30-4 #### [address] [address] RBC (Bld) [#/Vol] 4.49 10*6/uL Low 4.50-5.50 [facility] ([place]) Comment on above: Performed By: #### 6 30-4 #### [facility] [address] [place] [address] WBC (Bld) [#/Vol] 6.9 10*3/uL Normal 4.5-11.0 [facility] ([place]) Comment on above: Performed By: #### 6 30-4 #### [facility] [address] [place] [address] Detection in urine of either or both bilirubin and urobilinogenOrdered By: Judy Boo on 04-22-2022 Bilirubin+Urobilinogen Ql (U) Negative NEGATIVE [facility] Folate SerPl-mCncon 04-22-20 Folate [Mass/Vol] ng/mL Normal >5.9 [facility] ([place]) Comment on above: Performed By: #### 3 2693-4 #### [facility] [address] [place] [address] Glucose Glucometer (BldC) [M ass/Vol]on 04-22-2022 Glucose [Mass/Vol] 314 mg/dL Normal 70-99 [facility] ([place]) Comment on above: Performed By: #### 4 1653-7 #### [facility] [address] [place] [address] Glucose [Mass/Vol] 171 mg/dL Normal 70-99 [facility] ([place]) Comment on above: Performed By: #### 3 2693-4 #### [facility] [address] [place] [address] Glucose [Mass/Vol] 292 mg/dL Normal 70-99 [facility] ([place]) Comment on above: Performed By: #### C D #### [facility] [address] [place] [address] Glucose [Mass/Vol] 199 mg/dL Normal 70-99 [facility] ([place]) Comment on above: Performed By: #### 3 2693-4 #### [facility] [address] [place] [address] Glucose [Mass/volume] in Uri ne by Automated test stripOrdered By: Judy Boo on 04-22-2022 Glucose Auto test strip (U) [Mass/Vol] >=2000 mg/dL NEGATIVE [facility] - Hematology and Cell countsOrdered By: Mary Beth Landaverde on 04-22-2022 HbA1c (Bld) [Mass fraction] 10.5 % 4.0-6.0 [facility] Lactate (Bld) [Moles/Vol]on 04-22-2022 Lactate [Moles/Vol] 1.1 mmol/L Normal 0.5-2.0 [facility] ([place]) Comment on above: Performed By: #### 2 1020-3 #### [facility] [address] [place] [address] Lactate (Bld) [Moles/Vol]Ord ered By: Mary Beth Landaverde on 04-22-2022 Lactate [Moles/Vol] 1.1 mmol/L 0.5-2.0 [facility] Lipid Panelon 04-22-2022 Cholesterol [Mass/Vol] 99 mg/dL Low 140-200 [facility] ([place]) Comment on above: Performed By: #### 3 2693-4 #### [facility] [address] [place] [address] Cholesterol in HDL [Mass/Vol] 23 mg/dL Low 29-71 [facility] ([place]) Comment on above: Performed By: #### 3 2693-4 #### [facility] [address] [place] [address] Cholesterol in LDL [Mass/Vol] 46 mg/dL Normal <129 [facility] ([place]) Comment on above: Performed By: #### 3 2693-4 #### [facility] [address] [place] [address] Cholesterol in LDL/Cholesterol in HDL [Mass ratio] 2.0 {ratio} Normal [facility] ([place]) Comment on above: Result Comment: MEN WOMEN 1/2 Average Risk 1.00 1.47 Average Risk 3.55 3.22 2X Average Risk 6.25 5.03 3X Average Risk 7.99 6.14 Performed By: #### 3 2693-4 #### [facility] [address] [place] [address] Triglyceride [Mass/Vol] 189 mg/dL Normal 41-189 [facility] ([place]) Comment on above: Performed By: #### 3 2693-4 #### [facility] [address] [place] [address] MR angio head wo conon 04-22 MR angio head wo con [facility] [address] [place] [address] Magnetic Resonance Report Signed Patient: CHARLI PORRAS#: [id number] : 1950 Acct:[id number] Age/Sex: 71 / M Admit Date: 04/19/22 Loc: 2T 2004-[address]: Verito Devi MD Ordering Physician: Mary Beth Landaverde NP Date of Service: 04/22/22 Procedure(s): MR angio head wo con; MR angio neck wo con Accession Number(s): [id number]; [id number] cc: Mary Beth Landaverde NP PHYSICIAN INDICATIONS: Pain 3T MR Angiogram Head: TECHNIQUE: 3T MRI. 3-D aidk-tb-pyqriz images were obtained to the head without [...] MR Angiogram Neck: TECHNIQUE: 3T MRI. 3-D bkba-gw-pnbejo MRI images of the neck were obtained [...] Signed By: Yunior Hickey MD 04/22/22 1538 [employer]: [facility] ([place]) MR angio neck wo conon 04-22 MR angio neck wo con [facility] [address] [place] [address] Magnetic Resonance Report Signed Patient: CHARLI PORRAS#: [id number] : 1950 Acct:[id number] Age/Sex: 71 / M Admit Date: 04/19/22 Loc: 2T 2004-[address]: Verito Devi MD Ordering Physician: Mary Beth Landaverde NP Date of Service: 04/22/22 Procedure(s): MR angio head wo con; MR angio neck wo con Accession Number(s): [id number]; [id number] cc: Mary Beth Landaverde NP PHYSICIAN INDICATIONS: Pain 3T MR Angiogram Head: TECHNIQUE: 3T MRI. 3-D jyqu-iy-pukqlt images were obtained to the head without [...] MR Angiogram Neck: TECHNIQUE: 3T MRI. 3-D wkdv-zd-wifeoj MRI images of the neck were obtained [...] evidence of aneurysm. Dictated By: Yunior Hickey MD, DD/ 37 Signed By: Yunior Hickey MD 04/22/221537 [employer]: [facility] ([place]) MR brain wo conon 04-22-2022 MR brain wo con [facility] [address] [place] [address] Magnetic Resonance Report Signed Patient: CHARLI PORRAS#: [id number] : 1950 Acct:[id number] Age/Sex: 71 / M Admit Date: 04/19/22 Loc: 2T 2004- Attending Dr: Verito Devi MD Ordering Physician: Mary Beth Landaverde NP Date of Service: 04/22/22 Procedure(s): MR brain wo con Accession Number(s): [id number] cc: Mary Beth Landaverde NP PHYSICIAN INDICATIONS: [...] DD/ 152 Signed By: Yunior Hickey MD 04/22/221521 [employer]: [facility] ([place]) Mucus [Presence] in Urine by AutomatedOrdered By: Judy Boo on 04-22-2022 Mucus Auto Ql (U) Small /HPF NONE SEEN [facility] No Panel InformationOrdered By: Judy Boo on 04-22-2022 Urine Culture Reflexed Reflexed to culture [facility] Comment on above: A Urine Culture has been added to this specimen. Prothrombin Time on Coumadin on 04-22-2022 INR Coag (PPP) [Relative time] 2.74 {INR} Normal 2.00-3.50 [facility] ([place]) Comment on above: Performed By: #### 9 4500-6 #### [facility] [address] [place] [address] RBC LM Ql (Urine sed)Ordered By: Judy Boo on 04-22-2022 RBC Ql (U) 11-20 /HPF NONE SEEN [facility] Serum or plasma cholesterol in LDL measurement (mass/volume)Ordered By: Mary Beth Landaverde on 04-22-2022 Cholesterol in LDL [Mass/Vol] 46 mg/dL <128 [facility] Serum or plasma cholesterol measurement (mass/volume)Ordered By: Mar yBeth Landaverde on 04-22-2022 Cholesterol [Mass/Vol] 99 mg/dL 140-200 [facility] Serum or plasma folate measu rement (mass/volume)Ordered By: Mary Beth Landaverde on 04-22-2022 Folate [Mass/Vol] ng/mL >6.0 [facility] Serum or plasma gabapentin m easurementOrdered By: Mary Beth Landaverde on 04-22-2022 Gabapentin [Moles/Vol] 9.4 ug/mL 4.0-16.0 [facility] Comment on above: Detection Limit = 1. 0Performed at: - [facility] [id number] Director: Martha Gaming MD, Phone: [phone] Serum or plasma high density lipoprotein (HDL) cholesterol measurementOrdered By: Mary Beth Landaverde on 04-22-2022 Cholesterol in HDL [Mass/Vol] 23 mg/dL 29-71 [facility] Serum or plasma low density lipoprotein (LDL) cholesterol/high density lipoprotein (HOrdered By: Mary Beth Landaverde on 04-22-2022 Cholesterol in LDL/Cholesterol in HDL [Mass ratio] 2.0 {ratio} [facility] Comment on above: MEN WOMEN1/2 Average Risk 1.00 1.47Average Risk 3.55 3.222X Average Risk 6.25 5.033X Average Risk 7.99 6.14 Serum or plasma thyroid stim ulating hormone (TSH) measurementOrdered By: Mary Beth Landaverde on 04-22-2022 TSH Qn 3.00 uIU/mL 0.34-5.60 [facility] Serum or plasma triglyceride measurement (mass/volume)Ordered By: Mary Beth Landaverde on 04-22-2022 Triglyceride [Mass/Vol] 189 mg/dL 41-189 [facility] Specific gravity of UrineOrd ered By: Judy Boo on 04-22-2022 Specific gravity (U) [Rel density] 1.015 1.001-1.035 [facility] TSH SerPl-aCncon 04-22-2022 TSH Qn 3.00 uIU/mL Normal 0.34-5.60 [facility] ([place]) Comment on above: Performed By: #### 3 2693-4 #### [facility] [address] [place] [address] Transitional cells detection in urine sediment by light microscopyOrdered By: Judy Boo on 04-22-2022 Transitional cells LM Ql (Urine sed) Not Reportable [facility] Urinalysis complete panel (U )on 04-22-2022 Mucus Auto Ql (U) SMALL Normal NONE SEEN [facility] ([place]) Comment on above: Order Comment: Urine Collect Straight Cath Performed By: #### 4 1653-7 #### [facility] [address] [place] [address] RBC Ql (U) 11-20 Normal NONE SEEN [facility] ([place]) Comment on above: Order Comment: Urine Collect Straight Cath Performed By: #### 4 1653-7 #### [facility] [address] [place] [address] WBC Auto (U) [#/Vol] >100 Normal NONE SEEN [facility] ([place]) Comment on above: Order Comment: Urine Collect Straight Cath Performed By: #### 4 1653-7 #### [facility] [address] [place] [address] Yeast.budding LM.HPF (Urine sed) [#/Area] LARGE Normal NONE SEEN [facility] ([place]) Comment on above: Order Comment: Urine Collect Straight Cath Performed By: #### 4 1653-7 #### [facility] [address] [place], [place] [id number] Urine blood detectionOrdered By: Judy Boo on 04-22-2022 RBC Ql (U) Small NEGATIVE [facility] Urine colorOrdered By: Karinari magdaleno Boo on 04-22-2022 Color (U) Yellow [facility] Urine ketones detectionOrder ed By: Judy Pompamyra on 04-22-2022 Ketones Ql (U) 15 mg/dL NEGATIVE [facility] Urine leukocytes detection b y microscopyOrdered By: Judy Pompmayra on 04-22-2022 WBC Visual Ql (U) Moderate NEGATIVE [facility] Urine nitrate detectionOrder ed By: Judy Pompmayra on 04-22-2022 Nitrate Ql (U) Negative NEGATIVE [facility] Urine pHOrdered By: Judy Pompmayra on 04-22-2022 pH (U) 5.0 [pH] 4.6-8.0 [facility] Urine protein detection by a utomated test stripOrdered By: Judy Boo on 04-22-2022 Protein Auto test strip Ql (U) Negative NEGATIVE [facility] Vit B12 SerPl-mCncon 022 Cobalamin (Vitamin B12) [Mass/Vol] 787 pg/mL Normal 180-914 [facility] ([place]) Comment on above: Performed By: #### 3 2693-4 #### [facility] [address] [place], [place] [id number] Vitamin B12 ser/plasOrdered By: Mary Beth Landaverde on 04-22-2022 Cobalamin (Vitamin B12) [Mass/Vol] 787 pg/mL 180-914 [facility] Whole blood estimated averag e glucose determination by estimation from glycated hemoglobin (mass/voluOrdered By: Mary Beth Landaverde on 04-22-2022 Average glucose Estimated from glycated hemoglobin (Bld) [Mass/Vol] 255 mg/dL [facility] XR chest 2Von 04-22-2022 XR chest 2V [facility] [address] [place], [place] [id number] XRay Report Signed Patient: CHARLI PORRAS#: [id number] : 1950 Acct:[id number] Age/Sex: 71 / M Admit Date: 04/19/22 Loc: 3026-[address]: Verito Devi MD Ordering Physician: Mary Beth Landaverde NP Date of Service: 04/22/22 Procedure(s): XR chest 2V Accession Number(s): [id number] cc: Mary Beth Landaverde NP PHYSICIAN INDICATIONS: SOB TECHNIQUE: Portable view. FINDINGS: The heart size is normal. The lung seay are clear. No infiltrates are identified. No pleural effusions are present. Postsurgical changes lower cervical spine. IMPRESSION: Chest, Portable: 1. No active pulmonary disease. No change from 04/19/2022. Dictated By: Yunior Hickey MD DD/ Signed By: Yunior Hickey MD 04/22/221443 Kosher Sealer: IBRAHIMA [facility]) Blood prothrombin time (PT) by coagulation assayOrdered By: Verito Devi on 04-21-2022 PT Coag (Bld) [Time] 26.2 s 9.5-12.9 [facility] CBC W/ Auto Diffon Basophils (Bld) [#/Vol] 0.0 10*3/uL Normal 0.00-0.20 [facility] ([place]) Comment on above: Performed By: #### 9 4500-6 #### [facility] [address] [place] [address] Basophils/100 WBC (Bld) 0.5 % Normal 0.0-1.5 [facility] ([place]) Comment on above: Performed By: #### 9 4500-6 #### [facility] [address] [place] [address] Eosinophils (Bld) [#/Vol] 0.1 10*3/uL Normal 0.00-0.33 [facility] ([place]) Comment on above: Performed By: #### 9 4500-6 #### [address] [address] Eosinophils/100 WBC (Bld) 1.5 % Normal 0.0-3.0 [facility] ([place]) Comment on above: Performed By: #### 9 4500-6 #### [facility] [address] [place] [address] Erythrocyte distribution width (RBC) [Ratio] 13.2 % Normal 10.9-14.3 [facility] ([place]) Comment on above: Performed By: #### 9 4500-6 #### [facility] [address] [place] [address] Hematocrit (Bld) [Volume fraction] 39.2 % Low 41.0-50.0 [facility] ([place]) Comment on above: Performed By: #### 9 4500-6 #### [address] [address] Hemoglobin (Bld) [Mass/Vol] 13.4 g/dL Low 13.5-16.5 [facility] ([place]) Comment on above: Performed By: #### 9 4500-6 #### [facility] [address] [place] [address] Lymphocytes Auto (Unsp spec) [#/Vol] 1.1 10*3/uL Normal 1.10-4.80 [facility] ([place]) Comment on above: Performed By: #### 9 4500-6 #### [address] [address] Lymphocytes/100 WBC (Bld) 12.3 % Low 24.0-44.0 [facility] ([place]) Comment on above: Performed By: #### 9 4500-6 #### [address] [address] MCH (RBC) [Entitic mass] 29.9 pg Normal 28.0-34.0 [facility] ([place]) Comment on above: Performed By: #### 9 4500-6 #### [facility] [address] [place] [address] MCHC (RBC) [Mass/Vol] 34.1 g/dL Normal 33.0-37.0 [facility] ([place]) Comment on above: Performed By: #### 9 4500-6 #### [facility] [address] [place] [address] MCV (RBC) [Entitic vol] 87.7 fL Normal 80.0-100.0 [facility] ([place]) Comment on above: Performed By: #### 9 4500-6 #### [facility] [address] [place] [address] Monocytes (Bld) [#/Vol] 1.0 10*3/uL High 0.20-0.70 [facility] ([place]) Comment on above: Performed By: #### 9 4500-6 #### [facility] [address] [place] [address] Monocytes/100 WBC (Bld) 11.2 % High 3.4-9.0 [facility] ([place]) Comment on above: Performed By: #### 9 4500-6 #### [facility] [address] [place] [address] Neutrophils (Bld) [#/Vol] 6.7 10*3/uL Normal 1.83-8.70 [facility] ([place]) Comment on above: Performed By: #### 9 4500-6 #### [facility] [address] [place] [address] Neutrophils/100 WBC (Bld) 74.5 % High 40.0-74.0 [facility] ([place]) Comment on above: Performed By: #### 9 4500-6 #### [facility] [address] [place] [address] Platelet mean volume (Bld) [Entitic vol] 6.7 fL Low 7.4-10.4 [facility] ([place]) Comment on above: Performed By: #### 9 4500-6 #### [facility] [address] [place] [address] Platelets (Bld) [#/Vol] 136 10*3/uL Low 150-450 [facility] ([place]) Comment on above: Performed By: #### 9 4500-6 #### [facility] [address] [place] [address] RBC (Bld) [#/Vol] 4.47 10*6/uL Low 4.50-5.50 [facility] ([place]) Comment on above: Performed By: #### 9 4500-6 #### [facility] [address] [place] [address] WBC (Bld) [#/Vol] 9.0 10*3/uL Normal 4.5-11.0 [facility] ([place]) Comment on above: Performed By: #### 9 4500-6 #### [facility] [address] [place] [address] Comprehensive metabolic 2000 panelon 04-21-2022 Albumin [Mass/Vol] 3.1 g/dL Low 3.4-4.8 [facility] ([place]) Comment on above: Performed By: #### 4 1653-7 #### [facility] [address] [place] [address] Albumin/Globulin [Mass ratio] 0.9 {ratio} Low 1.1-2.2 [facility] ([place]) Comment on above: Performed By: #### 4 1653-7 #### [facility] [address] [place] [address] ALP [Catalytic activity/Vol] 73 U/L Normal 42-121 [facility] ([place]) Comment on above: Performed By: #### 4 1653-7 #### [facility] [address] [place] [address] ALT [Catalytic activity/Vol] 25 U/L Normal 10-63 [facility] ([place]) Comment on above: Performed By: #### 4 1653-7 #### [facility] [address] [place] [address] Anion gap [Moles/Vol] 9.0 mmol/L Normal 3-11 [facility] ([place]) Comment on above: Performed By: #### 4 1653-7 #### [facility] [address] [place] [address] AST [Catalytic activity/Vol] 28 U/L Normal 10-41 [facility] ([place]) Comment on above: Performed By: #### 4 1653-7 #### [facility] [address] [place] [address] Bilirubin [Mass/Vol] 1.0 mg/dL Normal 0.3-1.5 [facility] ([place]) Comment on above: Performed By: #### 4 1653-7 #### [facility] [address] [place] [address] Calcium [Mass/Vol] 8.1 mg/dL Low 8.5-10.5 [facility] ([place]) Comment on above: Performed By: #### 4 1653-7 #### [facility] [address] [place] [address] Chloride [Moles/Vol] 101 mmol/L Normal 98-107 [facility] ([place]) Comment on above: Performed By: #### 4 1653-7 #### [facility] [address] [place] [address] CO2 [Moles/Vol] 22 mmol/L Normal 21-31 [facility] ([place]) Comment on above: Performed By: #### 4 1653-7 #### [facility] [address] [place] [address] Creatinine [Moles/Vol] 1.1 mg/dL Normal 0.6-1.3 [facility] ([place]) Comment on above: Performed By: #### 4 1653-7 #### [facility] [address] [place] [address] Creatinine and Glomerular filtration rate.predicted panel (S/P/Bld) 80 mL/min Normal >60 [facility] ([place]) Comment on above: Performed By: #### 4 1653-7 #### [facility] [address] [place] [address] GFR/1.73 sq M.predicted among non-blacks MDRD (S/P/Bld) [Vol rate/Area] 66 mL/min/{1.73_m2} Normal >60 [facility] ([place]) Comment on above: Performed By: #### 4 1653-7 #### [facility] [address] [place] [address] Globulin (S) [Mass/Vol] 3.6 g/dL Normal 1.9-3.9 [facility] ([place]) Comment on above: Performed By: #### 4 1653-7 #### [facility] [address] [place] [address] Glucose [Mass/Vol] 251 mg/dL High 70-99 [facility] ([place]) Comment on above: Performed By: #### 4 1653-7 #### [facility] [address] [place] [address] Potassium [Moles/Vol] 3.9 mmol/L Normal 3.6-5.0 [facility] ([place]) Comment on above: Performed By: #### 4 1653-7 #### [facility] [address] [place] [address] Protein [Mass/Vol] 6.7 g/dL Normal 5.9-7.8 [facility] ([place]) Comment on above: Performed By: #### 4 1653-7 #### [facility] [address] [place] [address] Sodium [Moles/Vol] 132 mmol/L Low 135-145 [facility] ([place]) Comment on above: Performed By: #### 4 1653-7 #### [facility] [address] [place] [address] Urea nitrogen [Mass/Vol] 21 mg/dL High 6-20 [facility] ([place]) Comment on above: Performed By: #### 4 1653-7 #### [facility] [address] [place] [address] Glucose Glucometer (BldC) [M ass/Vol]on 04-21-2022 Glucose [Mass/Vol] 209 mg/dL Normal 70-99 [facility] ([place]) Comment on above: Performed By: #### 4 1653-7 #### [facility] [address] [place] [address] Glucose [Mass/Vol] 195 mg/dL Normal 70-99 [facility] ([place]) Comment on above: Performed By: #### 6 30-4 #### [facility] [address] [place] [address] Glucose [Mass/Vol] 263 mg/dL Normal 70-99 [facility] ([place]) Comment on above: Performed By: #### 4 1653-7 #### [facility] [address] [place] [address] Glucose [Mass/Vol] 245 mg/dL Normal 70-99 [facility] ([place]) Comment on above: Performed By: #### C D #### [facility] [address] [place] [address] Glucose [Mass/Vol] 235 mg/dL Normal 70-99 [facility] ([place]) Comment on above: Performed By: #### 9 4500-6 #### [facility] [address] [place] [address] Platelet poor plasma interna tional normalized ratio (INR) by coagulation assay (relatOrdered By: Verito Devi on 04-21-2022 INR Coag (PPP) [Relative time] 2.32 {INR} 0.80-2.00 [facility] Prothrombin Time INR w/o Cou mon 04-21-2022 PT Coag (Bld) [Time] 26.2 s High 9.5-12.9 [facility] ([place]) Comment on above: Performed By: #### 4 1653-7 #### [facility] [address] [place] [address] Prothrombin Time on Coumadin on 04-21-2022 INR Coag (PPP) [Relative time] 2.32 {INR} High 0.80-2.00 [facility] ([place]) Comment on above: Performed By: #### 9 4500-6 #### [facility] [address] [place] [address] Performed By: #### 4 1653-7 #### [facility] [address] [place] [address] Reflex Urn Culton 04-21-2022 Bacteria identified Cx Nom (U) ORGANISM ID: 1.1 - Presumptive Callie glabrata Daykin Count 50,000-100,000 CFU/ml Normal [facility] ([place]) Comment on above: Performed By: #### 4 1653-7 #### [facility] [address] [place] [address] Basic Metabolic Panelon 04-03 Anion gap [Moles/Vol] 11.0 mmol/L Normal 3-11 [facility] ([place]) Comment on above: Performed By: #### 6 30-4 #### [facility] [address] [place] [address] Calcium [Mass/Vol] 8.3 mg/dL Low 8.5-10.5 [facility] ([place]) Comment on above: Performed By: #### 6 30-4 #### [address] [address] Chloride [Moles/Vol] 100 mmol/L Normal 98-107 [facility] ([place]) Comment on above: Performed By: #### 6 30-4 #### [facility] [address] [place] [address] CO2 [Moles/Vol] 21 mmol/L Normal 21-31 [facility] ([place]) Comment on above: Performed By: #### 6 30-4 #### [facility] [address] [place] [address] Creatinine [Moles/Vol] 1.4 mg/dL High 0.6-1.3 [facility] ([place]) Comment on above: Performed By: #### 6 30-4 #### [facility] [address] [place] [address] Creatinine and Glomerular filtration rate.predicted panel (S/P/Bld) 60 mL/min Normal >60 [facility] ([place]) Comment on above: Performed By: #### 6 30-4 #### [facility] [address] [place] [address] GFR/1.73 sq M.predicted among non-blacks MDRD (S/P/Bld) [Vol rate/Area] 50 mL/min/{1.73_m2} Normal >60 [facility] ([place]) Comment on above: Performed By: #### 6 30-4 #### [facility] [address] [place] [address] Glucose [Mass/Vol] 203 mg/dL High 70-99 [facility] ([place]) Comment on above: Performed By: #### 6 30-4 #### [facility] [address] [place] [address] Potassium [Moles/Vol] 4.0 mmol/L Normal 3.6-5.0 [facility] ([place]) Comment on above: Performed By: #### 6 30-4 #### [facility] [address] [place] [address] Sodium [Moles/Vol] 132 mmol/L Low 135-145 [facility] ([place]) Comment on above: Performed By: #### 6 30-4 #### [facility] [address] [place] [address] Urea nitrogen [Mass/Vol] 21 mg/dL High 6- [facility] ([place]) Comment on above: Performed By: #### 6 30-4 #### [facility] [address] [place] [address] C. diff Toxin Assayon 2021 C. difficile glutamate dehydrogenase and toxins A+B IA.rapid Ql (Stl) Negative Normal [facility] ([place]) Comment on above: Result Comment: Nega tive for toxigenic C. difficile Performed By: #### 2 1020-3 #### [facility] [address] [place] [address] CBC W/ Auto Diffon 2 Basophils (Bld) [#/Vol] 0.0 10*3/uL Normal 0.00-0.20 [facility] ([place]) Comment on above: Performed By: #### 2 1020-3 #### [facility] [address] [place] [address] Basophils/100 WBC (Bld) 0.3 % Normal 0.0-1.5 [facility] ([place]) Comment on above: Performed By: #### 2 1020-3 #### [facility] [address] [place] [address] Eosinophils (Bld) [#/Vol] 0.0 10*3/uL Normal 0.00-0.33 [facility] ([place]) Comment on above: Performed By: #### 2 1020-3 #### [facility] [address] [place] [address] Eosinophils/100 WBC (Bld) 0.4 % Normal 0.0-3.0 [facility] ([place]) Comment on above: Performed By: #### 2 1020-3 #### [address] [address] Erythrocyte distribution width (RBC) [Ratio] 13.5 % Normal 10.9-14.3 [facility] ([place]) Comment on above: Performed By: #### 2 1020-3 #### [facility] [address] [place] [address] Hematocrit (Bld) [Volume fraction] 38.5 % Low 41.0-50.0 [facility] ([place]) Comment on above: Performed By: #### 2 1020-3 #### [address] [address] Hemoglobin (Bld) [Mass/Vol] 12.9 g/dL Low 13.5-16.5 [facility] ([place]) Comment on above: Performed By: #### 2 1020-3 #### [address] [address] Lymphocytes Auto (Unsp spec) [#/Vol] 1.0 10*3/uL Low 1.10-4.80 [facility] ([place]) Comment on above: Performed By: #### 2 1020-3 #### [address] [address] Lymphocytes/100 WBC (Bld) 12.1 % Low 24.0-44.0 [facility] ([place]) Comment on above: Performed By: #### 2 1020-3 #### [address] [address] MCH (RBC) [Entitic mass] 29.7 pg Normal 28.0-34.0 [facility] ([place]) Comment on above: Performed By: #### 2 1020-3 #### [address] [address] MCHC (RBC) [Mass/Vol] 33.6 g/dL Normal 33.0-37.0 [facility] ([place]) Comment on above: Performed By: #### 2 1020-3 #### [facility] [address] [place] [address] MCV (RBC) [Entitic vol] 88.4 fL Normal 80.0-100.0 [facility] ([place]) Comment on above: Performed By: #### 2 1020-3 #### [facility] [address] [place] [address] Monocytes (Bld) [#/Vol] 1.0 10*3/uL High 0.20-0.70 [facility] ([place]) Comment on above: Performed By: #### 2 1020-3 #### [address] [address] Monocytes/100 WBC (Bld) 11.5 % High 3.4-9.0 [facility] ([place]) Comment on above: Performed By: #### 2 1020-3 #### [address] [address] Neutrophils (Bld) [#/Vol] 6.4 10*3/uL Normal 1.83-8.70 [facility] ([place]) Comment on above: Performed By: #### 2 1020-3 #### [facility] [address] [place] [address] Neutrophils/100 WBC (Bld) 75.7 % High 40.0-74.0 [facility] ([place]) Comment on above: Performed By: #### 2 1020-3 #### [facility] [address] [place] [address] Platelet mean volume (Bld) [Entitic vol] 6.8 fL Low 7.4-10.4 [facility] ([place]) Comment on above: Performed By: #### 2 1020-3 #### [address] [address] Platelets (Bld) [#/Vol] 133 10*3/uL Low 150-450 [facility] ([place]) Comment on above: Performed By: #### 2 1020-3 #### [facility] [address] [place] [address] RBC (Bld) [#/Vol] 4.36 10*6/uL Low 4.50-5.50 [facility] ([place]) Comment on above: Performed By: #### 2 1020-3 #### [facility] [address] [place] [address] WBC (Bld) [#/Vol] 8.5 10*3/uL Normal 4.5-11.0 [facility] ([place]) Comment on above: Performed By: #### 2 1020-3 #### [facility] [address] [place] [address] CO2 (BldV) [Moles/Vol]Ordere d By: Judy Boo on 04-20-2022 CO2 [Moles/Vol] 21.3 mmol/L [facility] CT abdomen pelvis wo conon 1 06-21-2021 CT abdomen pelvis wo [facility] [address] [place] [address] CT Scan Report Signed Patient: CHARLI PORRAS#: [id number] : 1950 Acct:[id number] Age/Sex: 71 / M Admit Date: 04/19/22 Loc: 3026-[address]: Verito Devi MD Ordering Physician: Judy Boo MD Date of Service: 04/20/22 Procedure(s): CT abdomen pelvis wo con Accession Number(s): [id number] cc: Judy Boo MD PHYSICIAN INDICATIONS: Pain [...] 03 Signed By: Yunior Hickey MD 04/20/221403 Kosher Sealer: IBRAHIMA Greenberg [facility] ([place]) Gas panel (BldV)on 2 CO2 (BldV) [Partial pressure] 30 mm[Hg] Low 39-55 [facility]) Comment on above: Performed By: #### 9 4500-6 #### [facility] [address] [place] [address] CO2 [Moles/Vol] 21.3 mmol/L Low 23-29 [facility] ([place]) Comment on above: Performed By: #### 9 4500-6 #### [facility] [address] [place] [address] HCO3 (Bld) [Moles/Vol] 20.4 mmol/L Low 22-28 [facility] ([place]) Comment on above: Performed By: #### 9 4500-6 #### [facility] [address] [place] [address] Oxygen (BldV) [Partial pressure] 117.0 mm[Hg] High 30-50 [facility] ([place]) Comment on above: Performed By: #### 9 4500-6 #### [facility] [address] [place] [address] pH (BldV) 7.44 [pH] High 7.31-7.42 [facility] ([place]) Comment on above: Performed By: #### 9 4500-6 #### [facility] [address] [place] [address] VBG Oxygen Saturation 99 % High 50-85 [facility] ([place]) Comment on above: Performed By: #### 9 4500-6 #### [facility] [address] [place] [address] Glucose Glucometer (BldC) [M ass/Vol]on 04-20-2022 Glucose [Mass/Vol] 164 mg/dL Normal 70-99 [facility] ([place]) Comment on above: Performed By: #### 9 4500-6 #### [facility] [address] [place] [address] Glucose [Mass/Vol] 176 mg/dL Normal 70-99 [facility] ([place]) Comment on above: Performed By: #### 2 1020-3 #### [facility] [address] [place] [address] Glucose [Mass/Vol] 178 mg/dL Normal 70-99 [facility] ([place]) Comment on above: Performed By: #### 2 1020-3 #### [facility] [address] [place] [address] Glucose [Mass/Vol] 231 mg/dL Normal 70-99 [facility] ([place]) Comment on above: Performed By: #### 9 4500-6 #### [facility] [address] [place] [address] HCO3 (BldV) [Moles/Vol]Order ed By: Judy Boo on 04-20-2022 HCO3 (Bld) [Moles/Vol] 20.4 mmol/L 22-28 [facility] Hemoglobin A1con 04-20-2022 Average glucose Estimated from glycated hemoglobin (Bld) [Mass/Vol] 171 mg/dL Normal [facility] ([place]) Comment on above: Performed By: #### 3 2693-4 #### [facility] [address] [place] [address] HbA1c (Bld) [Mass fraction] 7.6 % High 4.0-6.0 [facility] ([place]) Comment on above: Performed By: #### 3 2693-4 #### [facility] [address] [place] [address] Natriuretic peptide B [Mass/ Vol]on 04-20-2022 Natriuretic peptide B (Bld) [Mass/Vol] 28 pg/mL Normal 0-100 [facility] ([place]) Comment on above: Performed By: #### 4 1653-7 #### [facility] [address] [place] [address] Natriuretic peptide B [Mass/ Vol]Ordered By: Judy Boo on 04-20-2022 Natriuretic peptide B (Bld) [Mass/Vol] 28 pg/mL 0-100 [facility] No Panel InformationOrdered By: Judy Boo on 04-20-2022 Venous Blood Oxygen Saturation 99 % 50-85 [facility] Prothrombin Time on Coumadin on 04-20-2022 INR Coag (PPP) [Relative time] 2.33 {INR} Normal 2.00-3.50 [facility] ([place]) Comment on above: Performed By: #### 3 2693-4 #### [facility] [address] [place] [address] Stool Clostridium difficile panel (glutamate dehydrogenase detection with detection oOrdered By: Judy Boo on 04-20-2022 C. difficile glutamate dehydrogenase and toxins A+B IA.rapid Ql (Stl) Negative [facility] Comment on above: Negative for toxigen ic C. difficile Venous blood pH measurementO rdered By: Judy Boo on 04-20-2022 pH (BldV) 7.44 [pH] 7.31-7.42 [facility] Venous blood partial pressur e of carbon dioxide measurementOrdered By: Judy Boo on 04-20-2022 CO2 (BldV) [Partial pressure] 30 mm[Hg] 39-55 [facility] Venous blood partial pressur e of oxygen measurementOrdered By: Judy Boo on 04-20-2022 Oxygen (BldV) [Partial pressure] 117.0 mm[Hg] 30-50 [facility] ALT (SGPT) ser/plasOrdered B y: Thompson Hayden on 04-19-2022 ALT [Catalytic activity/Vol] 27 U/L 10-63 [facility] Absolute lymphocyte countOrd ered By: Thompson Hayden on 04-19-2022 Lymphocytes Auto (Unsp spec) [#/Vol] 1.3 10*3/uL 1.10-4.80 [facility] Albumin [Mass/volume] in Ser um or PlasmaOrdered By: Thompson Hayden on 04-19-2022 Albumin [Mass/Vol] 4.1 g/dL 3.4-4.8 [facility] Albumin/Globulin [Mass Ratio ] in Serum or PlasmaOrdered By: Thompson Hayden on 04-19-2022 Albumin/Globulin [Mass ratio] 1.0 {ratio} 1.1-2.2 [facility] Alkaline phosphatase [Enzyma tic activity/volume] in Serum or PlasmaOrdered By: Thompson Hayden on 04-19-2022 ALP [Catalytic activity/Vol] 96 U/L 42-121 [facility] Aspartate aminotransferase [ Enzymatic activity/volume] in Serum or PlasmaOrdered By: Thompson Hayden on 04-19-2022 AST [Catalytic activity/Vol] 29 U/L 10-41 [facility] Automated leukocyte clumps c ount in urine sediment (number/area)Ordered By: Thompson Hayden on 04-19-2022 Leukocyte clumps Auto (Urine sed) [#/Area] Moderate /HPF NONE SEEN [facility] Bacteria [Presence] in Urine sediment by Light microscopyOrdered By: Thompson Hayden on 04-19-2022 Bacteria LM Ql (Urine sed) Trace /HPF NONE SEEN [facility] Basophils Auto (Bld) [#/Vol] Ordered By: Thompson Hayden on 04-19-2022 Basophils (Bld) [#/Vol] 0.1 10*3/uL 0.00-0.20 [facility] Basophils/100 WBC Auto (Bld) Ordered By: Thomposn Hayden on 04-19-2022 Basophils/100 WBC (Bld) 0.7 % 0.0-1.5 [facility] Bilirubin.total [Mass/volume ] in Serum or PlasmaOrdered By: Thompson Hayden on 04-19-2022 Bilirubin [Mass/Vol] 1.2 mg/dL 0.3-1.5 [facility] Blood Cultureon 04-19-2022 Bacteria identified Anaer+Aer cx Nom (Unsp spec) Bacteria Spec Anaerobe+Aerobe Cult NO GROWTH 5 DAYS Normal [facility] ([place]) Comment on above: Performed By: #### 4 1653-7 #### [facility] [address] [place] [address] Blood creatine kinase-MB yenny surement (mass/volume)Ordered By: Judy Boo on 04-19-2022 CK.MB (Bld) [Mass/Vol] 0.9 ng/mL 0-9.0 [facility] Blood magnesium measurement (mass/volume)Ordered By: Thompson Hayden on 04-19-2022 Magnesium (Bld) [Mass/Vol] 1.7 mEq/L 1.6-2.6 [facility] CBC W/ Auto Diffon Basophils (Bld) [#/Vol] 0.1 10*3/uL Normal 0.00-0.20 [facility] ([place]) Comment on above: Performed By: #### C D #### [facility] [address] [place] [address] Basophils/100 WBC (Bld) 0.7 % Normal 0.0-1.5 [facility] ([place]) Comment on above: Performed By: #### C D #### [facility] [address] [place] [address] Eosinophils (Bld) [#/Vol] 0.1 10*3/uL Normal 0.00-0.33 [facility] ([place]) Comment on above: Performed By: #### C D #### [facility] [address] [place] [address] Eosinophils/100 WBC (Bld) 0.6 % Normal 0.0-3.0 [facility] ([place]) Comment on above: Performed By: #### C D #### [facility] [address] [place] [address] Erythrocyte distribution width (RBC) [Ratio] 13.7 % Normal 10.9-14.3 [facility] ([place]) Comment on above: Performed By: #### C D #### [facility] [address] [place] [address] Hematocrit (Bld) [Volume fraction] 46.6 % Normal 41.0-50.0 [facility] ([place]) Comment on above: Performed By: #### C D #### [facility] [address] [place] [address] Hemoglobin (Bld) [Mass/Vol] 15.6 g/dL Normal 13.5-16.5 [facility] ([place]) Comment on above: Performed By: #### C D #### [facility] [address] [place] [address] Lymphocytes Auto (Unsp spec) [#/Vol] 1.3 10*3/uL Normal 1.10-4.80 [facility] ([place]) Comment on above: Performed By: #### C D #### [facility] [address] [place] [address] Lymphocytes/100 WBC (Bld) 12.6 % Low 24.0-44.0 [facility] ([place]) Comment on above: Performed By: #### C D #### [facility] [address] [place] [address] MCH (RBC) [Entitic mass] 29.7 pg Normal 28.0-34.0 [facility] ([place]) Comment on above: Performed By: #### C D #### [facility] [address] [place] [address] MCHC (RBC) [Mass/Vol] 33.4 g/dL Normal 33.0-37.0 [facility] ([place]) Comment on above: Performed By: #### C D #### [address] [address] MCV (RBC) [Entitic vol] 88.9 fL Normal 80.0-100.0 [facility] ([place]) Comment on above: Performed By: #### C D #### [facility] [address] [place] [address] Monocytes (Bld) [#/Vol] 0.8 10*3/uL High 0.20-0.70 [facility] ([place]) Comment on above: Performed By: #### C D #### [facility] [address] [place] [address] Monocytes/100 WBC (Bld) 8.4 % Normal 3.4-9.0 [facility] ([place]) Comment on above: Performed By: #### C D #### [facility] [address] [place] [address] Neutrophils (Bld) [#/Vol] 7.8 10*3/uL Normal 1.83-8.70 [facility] ([place]) Comment on above: Performed By: #### C D #### [facility] [address] [place] [address] Neutrophils/100 WBC (Bld) 77.7 % High 40.0-74.0 [facility] ([place]) Comment on above: Performed By: #### C D #### [facility] [address] [place] [address] Platelet mean volume (Bld) [Entitic vol] 6.6 fL Low 7.4-10.4 [facility] ([place]) Comment on above: Performed By: #### C D #### [address] [address] Platelets (Bld) [#/Vol] 165 10*3/uL Normal 150-450 [facility] ([place]) Comment on above: Performed By: #### C D #### [facility] [address] [place] [address] RBC (Bld) [#/Vol] 5.24 10*6/uL Normal 4.50-5.50 [facility] ([place]) Comment on above: Performed By: #### C D #### [facility] [address] [place] [address] WBC (Bld) [#/Vol] 10.1 10*3/uL Normal 4.5-11.0 [facility] ([place]) Comment on above: Performed By: #### C D #### [facility] [address] [place] [address] CK + isoenzymes totalOrdered By: Judy Boo on 04-19-2022 CK [Catalytic activity/Vol] 106 U/L 49-397 [facility] CK MB Bld-mCncon 04-19-2022 CK.MB (Bld) [Mass/Vol] 0.9 ng/mL Normal 0-9.0 [facility] ([place]) Comment on above: Performed By: #### 6 30-4 #### [facility] [address] [place] [address] CK SerPl-cCncon 04-19-2022 CK [Catalytic activity/Vol] 106 U/L Normal 49-397 [facility] ([place]) Comment on above: Performed By: #### 6 30-4 #### [facility] [address] [place] [address] CT head/brain wo conon 04-19 CT head/brain wo con [facility] [address] [place] [address] CT Scan Report Signed Patient: CHARLI PORRAS [place]#: [id number] : 1950 Acct:[id number] Age/Sex: 71 / M Admit Date: 04/18/22 Loc: ER Attending Dr: Ordering Physician: Thompson Hayden MD Date of Service: 04/19/22 Procedure(s): CT head/brain wo con Accession Number(s): [id number] cc: Thompson Hayden MD INDICATION: Altered mental [...] MD Dictated By: Yimi Llanos MD DD/ 0400 Signed By: Yimi Llanos MD 04/19/22 0425 Kosher Sealer: Normal [facility] ([place]) Carbon dioxide, total [Moles /volume] in Serum or PlasmaOrdered By: Thompson Hayden on 04-19-2022 CO2 [Moles/Vol] 24 mmol/L 21-31 [facility] Chloride [Moles/volume] in S maricel or PlasmaOrdered By: Thompson Hayden on 04-19-2022 Chloride [Moles/Vol] 94 mmol/L 98-107 [facility] Comprehensive metabolic 2000 panelon 04-19-2022 Albumin [Mass/Vol] 4.1 g/dL Normal 3.4-4.8 [facility] ([place]) Comment on above: Performed By: #### 4 1653-7 #### [facility] [address] [place] [address] Albumin/Globulin [Mass ratio] 1.0 {ratio} Low 1.1-2.2 [facility] ([place]) Comment on above: Performed By: #### 4 1653-7 #### [facility] [address] [place] [address] ALP [Catalytic activity/Vol] 96 U/L Normal 42-121 [facility] ([place]) Comment on above: Performed By: #### 4 1653-7 #### [facility] [address] [place] [address] ALT [Catalytic activity/Vol] 27 U/L Normal 10-63 [facility] ([place]) Comment on above: Performed By: #### 4 1653-7 #### [facility] [address] [place] [address] Anion gap [Moles/Vol] 13.0 mmol/L High 3-11 [facility] ([place]) Comment on above: Performed By: #### 4 1653-7 #### [facility] [address] [place] [address] AST [Catalytic activity/Vol] 29 U/L Normal 10-41 [facility] ([place]) Comment on above: Performed By: #### 4 1653-7 #### [facility] [address] [place] [address] Bilirubin [Mass/Vol] 1.2 mg/dL Normal 0.3-1.5 [facility] ([place]) Comment on above: Performed By: #### 4 1653-7 #### [facility] [address] [place] [address] Calcium [Mass/Vol] 9.0 mg/dL Normal 8.5-10.5 [facility] ([place]) Comment on above: Performed By: #### 4 1653-7 #### [address] [address] Chloride [Moles/Vol] 94 mmol/L Low 98-107 [facility] ([place]) Comment on above: Performed By: #### 4 1653-7 #### [facility] [address] [place] [address] CO2 [Moles/Vol] 24 mmol/L Normal 21-31 [facility] ([place]) Comment on above: Performed By: #### 4 1653-7 #### [facility] [address] [place] [address] Creatinine [Moles/Vol] 1.5 mg/dL High 0.6-1.3 [facility] ([place]) Comment on above: Performed By: #### 4 1653-7 #### [facility] [address] [place] [address] Creatinine and Glomerular filtration rate.predicted panel (S/P/Bld) 56 mL/min Normal >60 [facility] ([place]) Comment on above: Performed By: #### 4 1653-7 #### [facility] [address] [place] [address] GFR/1.73 sq M.predicted among non-blacks MDRD (S/P/Bld) [Vol rate/Area] 46 mL/min/{1.73_m2} Normal >60 [facility] ([place]) Comment on above: Performed By: #### 4 1653-7 #### [facility] [address] [place] [address] Globulin (S) [Mass/Vol] 4.1 g/dL High 1.9-3.9 [facility] ([place]) Comment on above: Performed By: #### 4 1653-7 #### [facility] [address] [place] [address] Glucose [Mass/Vol] 273 mg/dL High 70-99 [facility] ([place]) Comment on above: Performed By: #### 4 1653-7 #### [facility] [address] [place] [address] Potassium [Moles/Vol] 4.1 mmol/L Normal 3.6-5.0 [facility] ([place]) Comment on above: Performed By: #### 4 1653-7 #### [address] [place] [address] Protein [Mass/Vol] 8.2 g/dL High 5.9-7.8 [facility] ([place]) Comment on above: Performed By: #### 4 1653-7 #### [facility] [address] [place] [address] Sodium [Moles/Vol] 131 mmol/L Low 135-145 [facility] ([place]) Comment on above: Performed By: #### 4 1653-7 #### [facility] [address] [place] [address] Urea nitrogen [Mass/Vol] 18 mg/dL Normal 6-20 [facility] ([place]) Comment on above: Performed By: #### 4 1653-7 #### [facility] [address] [place] [address] Creatinine and Glomerular fi ltration rate.predicted panel (S/P/Bld)Ordered By: Thompson Hayden on 04-19-2022 GFR/1.73 sq M.predicted MDRD (S/P/Bld) [Vol rate/Area] 56 mL/min/{1.73_m2} >60 [facility] Eosinophils Auto (Bld) [#/Vo l]Ordered By: Thompson Hayden on 04-19-2022 Eosinophils (Bld) [#/Vol] 0.1 10*3/uL 0.00-0.33 [facility] Eosinophils/100 WBC Auto (Bl d)Ordered By: Thompson Hayden on 04-19-2022 Eosinophils/100 WBC (Bld) 0.6 % 0.0-3.0 [facility] Erythrocyte distribution wid th Auto (RBC) [Ratio]Ordered By: Thompson Hayden on 04-19-2022 Erythrocyte distribution width (RBC) [Ratio] 13.7 % 10.9-14.3 [facility] Estimated glomerular filtrat ion rate (GFR) non- AmericanOrdered By: Thompson Hayden on 04-19-2022 GFR/1.73 sq M.predicted among non-blacks MDRD (S/P/Bld) [Vol rate/Area] 46 mL/min/{1.73_m2} >60 [facility] Glucose Glucometer (BldC) [M ass/Vol]on 04-19-2022 Glucose [Mass/Vol] 267 mg/dL Normal 70-99 [facility] ([place]) Comment on above: Performed By: #### 2 1020-3 #### [facility] [address] [place] [address] Glucose [Mass/Vol] 223 mg/dL Normal 70-99 [facility] ([place]) Comment on above: Performed By: #### 4 1653-7 #### [facility] [address] [place] [address] Hematocrit Auto (Bld) [Volum e fraction]Ordered By: Thompson Hayden on 04-19-2022 Hematocrit (Bld) [Volume fraction] 46.6 % 41.0-50.0 [facility] Hemoglobin [Mass/volume] in BloodOrdered By: Thompson Hayden on 04-19-2022 Hemoglobin (Bld) [Mass/Vol] 15.6 g/dL 13.5-16.5 [facility] Influenza A,B [facility] by PCRon 04-19-2022 FLUBV Ag Ql (Unsp spec) Negative Normal Negative [facility] ([place]) Comment on above: Performed By: #### 6 30-4 #### [facility] [address] [place] [address] Rapid Flu A Negative Normal Negative [facility] ([place]) Comment on above: Performed By: #### 6 30-4 #### [facility] [address] [place] [address] Lactate (Bld) [Moles/Vol]on 04-19-2022 Lactate [Moles/Vol] 1.3 mmol/L Normal 0.5-2.0 [facility] ([place]) Comment on above: Performed By: #### 2 1020-3 #### [facility] [address] [place] [address] Lactate [Moles/Vol] 2.9 mmol/L Critically high 0.5-2.0 [facility] ([place]) Comment on above: Result Comment: Crit ical result called to and read back by [] at 1517. Performed By: #### 3 2693-4 #### [facility] [address] [place] [address] Lactate (Bld) [Moles/Vol]Ord ered By: Thompson Hayden on 04-19-2022 Lactate [Moles/Vol] 2.9 mmol/L 0.5-2.0 [facility] Comment on above: Critical result call ed to and read back by [] at 1517. Leukocytes detection in urin e sediment by light microscopyOrdered By: Thompson Hayden on 04-19-2022 WBC LM Ql (Urine sed) >100 /HPF NONE SEEN [facility] Lymphocytes/100 WBC Auto (Bl d)Ordered By: Thompson Hayden on 04-19-2022 Lymphocytes/100 WBC (Bld) 12.6 % 24.0-44.0 [facility] MCH Auto (RBC) [Entitic mass ]Ordered By: Thompson Hayden on 04-19-2022 MCH (RBC) [Entitic mass] 29.7 pg 28.0-34.0 [facility] MCHC Auto (RBC) [Mass/Vol]Or dered By: Thompson Hayden on 04-19-2022 MCHC (RBC) [Mass/Vol] 33.4 g/dL 33.0-37.0 [facility] MCV (mean corpuscular volume ) determinationOrdered By: Thompson Hayden on 04-19-2022 MCV (RBC) [Entitic vol] 88.9 fL 80.0-100.0 [facility] Magnesium Bld-mCncon 022 Magnesium (Bld) [Mass/Vol] 1.7 mEq/L Normal 1.6-2.6 [facility] ([place]) Comment on above: Performed By: #### 4 1653-7 #### [facility] [address] [place], [place] [address] Microscopic examination of u rineOrdered By: Thompson Hayden on 04-19-2022 Microscopic observation LM Nom (Urine sed) Yes [facility] Microscopic observation LM N om (Urine sed)on 04-19-2022 Transitional cells LM Ql (Urine sed) OCCASIONAL Normal NONE SEEN [facility] ([place]) Comment on above: Order Comment: Urine Collect Clean Catch Performed By: #### 6 30-4 #### [facility] [address] [place] [address] Monocytes Auto (Bld) [#/Vol] Ordered By: Thompson Hayden on 04-19-2022 Monocytes (Bld) [#/Vol] 0.8 10*3/uL 0.20-0.70 [facility] Monocytes/100 WBC Auto (Bld) Ordered By: Thompson Hayden on 04-19-2022 Monocytes/100 WBC (Bld) 8.4 % 3.4-9.0 [facility] Neutrophils Auto (Bld) [#/Vo l]Ordered By: Thompson Hayden on 04-19-2022 Neutrophils (Bld) [#/Vol] 7.8 10*3/uL 1.83-8.70 [facility] Neutrophils/100 WBC Auto (Bl d)Ordered By: Thompson Hayden on 04-19-2022 Neutrophils/100 WBC (Bld) 77.7 % 40.0-74.0 [facility] No Panel InformationOrdered By: Thompson Hayden on 04-19-2022 Procalcitonin 0.14 ng/mL 0.10-0.50 [facility] Comment on above: *PROCALCITONIN INTER PRETATION*Less than 0.5: Low risk for systemic infection.0.5 to 2.0: Moderate risk for systemic infection.Greater than 2.0: High risk for systemic infection.10.0 or greater: Likelihood of severe sepsis or septic shock. Influenza Type A (Rapid) Negative Negative [facility] Platelet mean volume Auto (B ld) [Entitic vol]Ordered By: Thompson Hayden on 04-19-2022 Platelet mean volume (Bld) [Entitic vol] 6.6 fL 7.4-10.4 [facility] Platelets Auto (Bld) [#/Vol] Ordered By: Thompson Hayden on 04-19-2022 Platelets (Bld) [#/Vol] 165 10*3/uL 150-450 [facility] Potassium [Moles/volume] in Serum or PlasmaOrdered By: Thompson Hayden on 04-19-2022 Potassium [Moles/Vol] 4.1 mmol/L 3.6-5.0 [facility] Procalcitoninon 04-19-2022 Procalcitonin 0.14 ng/mL Normal 0.10-0.50 [facility] ([place]) Comment on above: Result Comment: *PRO CALCITONIN INTERPRETATION* Less than 0.5: Low risk for systemic infection. 0.5 to 2.0: Moderate risk for systemic infection. Greater than 2.0: High risk for systemic infection. 10.0 or greater: Likelihood of severe sepsis or septic shock. Performed By: #### 2 1020-3 #### [address] [address] Prothrombin Time INR w/o Cou mon 04-19-2022 INR Coag (PPP) [Relative time] 2.64 {INR} High 0.80-2.00 [facility] ([place]) Comment on above: Performed By: #### 9 4500-6 #### [address] [address] PT Coag (Bld) [Time] 29.9 s High 9.5-12.9 [facility] ([place]) Comment on above: Performed By: #### 9 4500-6 #### [address] [address] RBC Auto (Bld) [#/Vol]Ordere d By: Thompson Hayden on 04-19-2022 RBC (Bld) [#/Vol] 5.24 10*6/uL 4.50-5.50 [facility] RBC LM Ql (Urine sed)Ordered By: Thompson Hayden on 04-19-2022 RBC Ql (U) 10-20 /HPF NONE SEEN [facility] Rapid influenza B antigen de tectionOrdered By: Thompson Hayden on 04-19-2022 FLUBV Ag Ql (Unsp spec) Negative Negative [facility] Respiratory specimen COVID-1 9 virus RNA detectionOrdered By: Thompson Hayden on 04-19-2022 SARS-CoV-2 (COVID-19) RNA LIV+probe Ql (Resp) [facility] SARS-CoV2 PCRon 04-19-2022 SARS-CoV-2 (COVID-19) RNA [...] authorization is terminated or revoked sooner. Normal [facility] ([place]) Comment on above: Performed By: #### 9 4500-6 #### [facility] [address] [place] [address] Serum globulin measurement ( mass/volume)Ordered By: Thompson Hayden on 04-19-2022 Globulin (S) [Mass/Vol] 4.1 g/dL 1.9-3.9 [facility] Serum glucose measurement (m ass/volume)Ordered By: Thompson Hayden on 04-19-2022 Glucose [Mass/Vol] 273 mg/dL 70-99 [facility] Serum or plasma anion gap de termination (moles/volume)Ordered By: Thompson Hayden on 04-19-2022 Anion gap [Moles/Vol] 13.0 mmol/L 3-11 [facility] Serum or plasma calcium maricel urement (mass/volume)Ordered By: Thompson Jackelyn on 04-19-2022 Calcium [Mass/Vol] 9.0 mg/dL 8.5-10.5 [facility] Serum or plasma creatinine m easurement (moles/volume)Ordered By: Thompson Hayden on 04-19-2022 Creatinine [Moles/Vol] 1.5 mg/dL 0.6-1.3 [facility] Serum or plasma sodium measu rement (moles/volume)Ordered By: Thompson Jackelyn on 04-19-2022 Sodium [Moles/Vol] 131 mmol/L 135-145 [facility] Serum or plasma urea nitroge n measurement (mass/volume)Ordered By: Thompson Jackelyn on 04-19-2022 Urea nitrogen [Mass/Vol] 18 mg/dL 6-20 [facility] Total protein bloodOrdered B y: Thompson Hayden on 04-19-2022 Protein [Mass/Vol] 8.2 g/dL 5.9-7.8 [facility] Troponin I SerPl-mCncon 04-03 Troponin I.cardiac [Mass/Vol] ng/mL Normal <0.03 [facility] ([place]) Comment on above: Performed By: #### 6 30-4 #### [facility] [address] [place] [address] Troponin I ser/plasOrdered B y: Judy Pompura on 04-19-2022 Troponin I.cardiac [Mass/Vol] ng/mL <0.03 [facility] Urinalysison 04-19-2022 Bilirubin+Urobilinogen Ql (U) Negative Normal NEGATIVE [facility] ([place]) Comment on above: Order Comment: Urine Collect Clean Catch Performed By: #### 6 30-4 #### [facility] [address] [place] [address] Glucose Auto test strip (U) [Mass/Vol] 1000 mg/dL Abnormal NEGATIVE [facility] ([place]) Comment on above: Order Comment: Urine Collect Clean Catch Performed By: #### 6 30-4 #### [facility] [address] [place] [address] Ketones Ql (U) Negative Normal NEGATIVE [facility] ([place]) Comment on above: Order Comment: Urine Collect Clean Catch Performed By: #### 6 30-4 #### [facility] [address] [place] [address] Nitrate Ql (U) Negative Normal NEGATIVE [facility] ([place]) Comment on above: Order Comment: Urine Collect Clean Catch Performed By: #### 6 30-4 #### [facility] [address] [place] [address] RBC Ql (U) SMALL Abnormal NEGATIVE [facility] ([place]) Comment on above: Order Comment: Urine Collect Clean Catch Performed By: #### 6 30-4 #### [facility] [address] [place] [address] Urobilinogen (U) [Mass/Vol] Negative Normal NEGATIVE [facility] ([place]) Comment on above: Order Comment: Urine Collect Clean Catch Performed By: #### 6 30-4 #### [facility] [address] [place] [address] WBC Visual Ql (U) TRACE Abnormal NEGATIVE [facility] ([place]) Comment on above: Order Comment: Urine Collect Clean Catch Performed By: #### 6 30-4 #### [facility] [address] [place] [address] Appearance (U) HAZY Normal [facility] ([place]) Comment on above: Order Comment: Urine Collect Clean Catch Performed By: #### 6 30-4 #### [facility] [address] [place] [address] Color (U) YELLOW Normal [facility] ([place]) Comment on above: Order Comment: Urine Collect Clean Catch Performed By: #### 6 30-4 #### [facility] [address] [place] [address] pH (U) 5.0 [pH] Normal 4.6-8.0 [facility] ([place]) Comment on above: Order Comment: Urine Collect Clean Catch Performed By: #### 6 30-4 #### [facility] [address] [place] [address] Protein Auto test strip Ql (U) TRACE Abnormal NEGATIVE [facility] ([place]) Comment on above: Order Comment: Urine Collect Clean Catch Performed By: #### 6 30-4 #### [facility] [address] [place] [address] Specific gravity (U) [Rel density] 1.015 Normal 1.001-1.035 [facility] ([place]) Comment on above: Order Comment: Urine Collect Clean Catch Performed By: #### 6 30-4 #### [facility] [address] [place] [address] Urobilinogen Test strip (U) [Mass/Vol]Ordered By: Thompson Hayden on 04-19-2022 Urobilinogen (U) [Mass/Vol] Negative NEGATIVE [facility] WBC Auto (Bld) [#/Vol]Ordere d By: Thompson Hayden on 04-19-2022 WBC (Bld) [#/Vol] 10.1 10*3/uL 4.5-11.0 [facility] XR chest 1V portableon 04-19 XR chest 1V portable [facility] [address] [place] [address] XRay Report Signed Patient: CHARLI PORRAS#: [id number] : 1950 Acct:[id number] Age/Sex: 71 / M Admit Date: 04/18/22 Loc: ER Attending Dr: Ordering Physician: Thompson Hayden MD Date of Service: 04/19/22 Procedure(s): XR chest 1V portable Accession Number(s): [id number] cc: Thompson Hayden MD INDICATION: Increased weakness [...] MD Dictated By: Radu Carvalho MD DD/ Signed By: Radu Carvalho MD 04/19/22 0100 Kosher Sealer: [facility] ([place]) [facility] 03-10-2022 [place] Patient name: CHARLI PORRAS MR#: [id number] Date of Service: 03/10/22 Acc#: [id number] : 1950 Age: 71 Sex: M Dictated by: Denise Barnes NP Patient Name : CHARLI PORRAS (71yo, M) ID# [id number] Appt. Date/Time : 03/10/2022 02:15PM : 1950 Service Dept. : [facility] Provider : DENISE BARNES APRN, ONCOLOGY PHARMACIST Insurance Med Primary: [facility] (MEDICARE REPLACEMENT/ADVANTAGE - HMO) Insurance # : [id number] Policy/Group # : [id number] Med Secondary: [facility] PRIOR TO 2022 (MEDICAID REPLACEMENT - HMO) Insurance # : [id number] Policy/Group # : [id number] Prescription: [facility] - Member is eligible. details Chief Complaint *pain management pain in legs and back Patient's Care Team Primary Care Provider: ERICKA CASSIDY MD: [address] [place] [address], , Referring Provider: SARAH FELIPEI: [address] [place] [id number], , Other: CHARISSE VALENCIA MD: [address] [place] [address], , Patient's Pharmacies [phone] ([facility]): [id number] [address], , Vitals BP: 154/75 sitting R arm [...] MOUTH EVERY DAY Date: 03/06/22 filled Source: ursula Name: ammonium lactate 12 % lotion APPLY TO THE AFFECTED AREA(S) TWICE DAILY Date: 12/12/21 filled Source: urslua Name: atorvastatin 10 mg tablet TAKE 1 TABLET BY MOUTH EVERY DAY Date: 03/06/22 filled Source: marthar[facility]a Name: bumetanide 1 mg tablet TAKE 1 TABLET BY MOUTH EVERY DAY NEEDED FOR LEG SWELLING Date: 03/06/22 filled Source: [facility] Name: busPIRone 15 mg tablet TAKE ONE (1) TABLET BY MOUTH TWICE DAILY Date: 07/10/21 filled Source: [facility] Name: Centrum Silver Men 300 mcg-600 mcg-300 mcg tablet Take 1 tablet(s) every day by oral route. Date: 10/10/20 entered Source: Kerri Christensen Name: clonazePAM 0.5 mg tablet TAKE 1 TABLET BY MOUTH TWICE DAILY Date: 01/13/22 filled Source: [facility] Name: cloNIDine 0.2 mg/24 hr weekly transdermal patch APPLY 1 PATCH TOPICALLY EVERY WEEK FOR ANXIETY Date: 03/06/22 filled Source: [facility] Name: diclofenac 1 % topical gel APPLY 2 GRAMS TOPICALLY TWICE DAILY TO AFFECTED AREA(S) Date: 11/13/20 filled Source: marthar[facility]artha Name: donepeziL 10 mg tablet TAKE 1 TABLET BY MOUTH DAILY IN THE EVENING *EMERGENCY REFILL* Date: 02/05/22 filled Source: surescripts Name: doxazosin 2 mg tablet TAKE 1 [...] *STOP OTHER GLIPIZIDE* Date: 03/06/22 filled Source: martharimartha Name: hydrOXYzine pamoate 50 mg capsule TAKE 1 CAPSULE BY MOUTH FOUR TIMES DAILY NEEDED Date: 03/05/22 filled Source: [facility] Name: Januvia 25 mg tablet TAKE 1 TABLET BY MOUTH ONCE DAILY *EMERGENCY REFILL* Date: 12/06/21 filled Source: marth[facility] Name: Jardiance 25 mg tablet TAKE 1 TABLET BY MOUTH EVERY DAY IN THE MORNING Date: 03/06/22 filled Source: martharipts Name: Lanrylan Solbitaar U-100 Insulin 100 unit/mL (3 mL) subcutaneous pen INJECT 50 UNITS SUBCUTANEOUSLY EVERY DAY Date: 03/06/22 filled Source: martharimartha Name: mupirocin 2 % topical ointment APPLY TO THE AFFECTED AREA(S) TWICE DAILY with dressing for 14 days Date: 10/03/21 filled Source: martharimartha Name: pramipexole 0.125 mg tablet TAKE 1 TABLET BY MOUTH TWO TIMES EVERY DAY Date: 03/06/22 filled Source: martharipts Name: QUEtiapine 100 mg tablet TAKE 1 TABLET BY MOUTH EVERY MORNING Date: 02/20/22 filled Source: martharipts Name: QUEtiapine 200 mg tablet TAKE 1 TABLET BY MOUTH EVERY BEDTIME Date: 03/06/22 filled Source: martharipts Name: QUEtiapine 50 mg tablet TAKE 1 TABLET BY MOUTH EVERY AFTERNOON *EMERGENCY REFILL* Date: 03/05/22 filled Source: [facility] Name: risperiDONE 1 mg tablet TAKE 1 TABLET BY MOUTH EVERY EVENING Date: 03/04/21 filled Source: (more content not included)... [facility] JEANNETTE Patient name: CHARLI PORRAS MR#: [id number] Date of Service: 01/08/22 Acc#: [id number] : 1950 Age: 71 Sex: M Dictated by: Maryan Tony MD Patient Name : CHARLI PORRAS (71yo, M) ID# [id number] Appt. Date/Time : 01/08/2022 01:15PM : 1950 Service Dept. : [facility]PAIN MANAGEMENT Provider : MARYAN TONY M.D. Insurance Med Primary: [facility] [facility] [place] (MEDICARE REPLACEMENT/ADVANTAGE - HMO) Insurance # : [id number] Policy/Group # : [id number] Med Secondary: [facility] - [place]) Insurance # : [id number] Policy/Group # : [place]MMEP Prescription: [facility] - Member is eligible. details Prescription: [facility] - Member is eligible. details Chief Complaint *pain management REFILLS; C/O PAIN FROM BACK TO FEET - ALL OVER; WOULD LIKE TO GET AN INJECTION AVING A LOT OF SCIATIC NERVE PAIN DOWN RIGHT SIDE Patient's Care Team Primary Care Provider: ERICKA CASSIDY MD: [address] [place] [address], , Referring Provider: SARAH FELIPEI: [address] [place] [address], Ph [phone], Other: CHARISSE VALENCIA MD: [address] [place] [address], , ax Patient's Pharmacies [facility] (ERX): [address] [address], Ph [phone], Vitals BP: 166/88 sitting L arm 01/08/2022 [...] DAY Date: 01/07/22 filled Source: [facility] Name: ammonium lactate 12 % lotion APPLY TO THE AFFECTED AREA(S) TWICE DAILY Date: 12/12/21 filled Source: [facility] Name: atorvastatin 10 mg tablet TAKE 1 TABLET BY MOUTH EVERY DAY Date: 01/07/22 filled Source: [facility] Name: bumetanide 1 mg [...] MOUTH TWICE DAILY Date: 12/10/21 filled Source: [facility] Name: cloNIDine 0.2 mg/24 hr weekly transdermal [...] MOUTH ONE DAILY Date: 01/07/22 filled Source: surescripts Name: ezetimibe 10 mg tablet TAKE 1 TABLET BY MOUTH EVERY DAY Date: 01/07/22 filled Source: surescripts Name: FLUoxetine 40 mg capsule TAKE 1 CAPSULE BY MOUTH ONCE DAILY *EMERGENCY REILL* Date: 08/08/21 filled Source: surescripts Name: gabapentin 800 mg tablet TAKE 1 TABLET BY MOUTH 3 TIMES DAILY Date: 01/08/22 prescribed Source: Maryan Tony M.D. Name: glipiZIDE 5 mg tablet TAKE 2 TABLETS BY MOUTH 2 TIMES EVERY DAY BEFORE A EAL Date: 01/07/22 filled Source: surescripts Name: hydrOXYzine pamoate 50 mg capsule TAKE 1 CAPSULE BY MOUTH FOUR TIMES JILLIAN NEEDED *EMERGENCY REFILL* Date: 07/10/21 filled Source: surescripts Name: Januvia 25 mg tablet TAKE 1 TABLET BY MOUTH ONCE DAILY *EMERGENCY REFILL* Date: 12/06/21 filled Source: surescripts Name: Jardiance 25 mg tablet TAKE 1 TABLET BY MOUTH EVERY DAY IN THE MORNING Date: 01/07/22 filled Source: surescripts Name: Lantus Solostar U-100 Insulin 100 unit/mL (3 mL) [...] QUEtiapine 100 mg (more content not included)... [facility] 11-07-2021 CANTON Patient name: CHARLI PORRAS MR#: [id number] Date of Service: 11/07/21 Acc#: [id number] : 1950 Age: 71 Sex: M Dictated by: Maryan Tony MD Patient Name : CHARLI PORRAS (71yo, M) ID# [id number] Appt. Date/Time : 11/07/2021 09:45AM : 1950 Service Dept. : [facility]PAIN MANAGEMENT Provider : MARYAN TONY M.D. Insurance Med Primary: [facility] - MEDIBLUE (MEDICARE REPLACEMENT/ADVANTAGE - HMO) Insurance # : [id number] Policy/Group # : [id number] Med Secondary: [facility] - [place]) Insurance # : [id number] Policy/Group # : [id number] Prescription: [facility] - Member is eligible. details Prescription: [facility] - Member is eligible. details Chief Complaint *pain management refills; c/o pain all over mostly back and legs Patient's Care Team Primary Care Provider: ERICKA CASSIDY MD: [address] [place] [address], , Referring Provider: SARAH FELIPEI: [address] [place] [address], Ph [phone], Other: CHARISSE VALENCIA MD: [address] [place] [address], , ax Patient's Pharmacies [facility] (ERX): [id number] [address], Ph [phone], Vitals BP: 141/59 sitting R arm 11/07/2021 [...] WEEK FOR ANXIETY Date: 10/08/21 filled Source: martharimartha Name: cloNIDine HCL 0.1 mg tablet TAKE 1 TABLET BY MOUTH TWICE DAILY NEEDED EMERGENCY REFILL* Date: 10/08/21 filled Source: [facility] Name: diclofenac 1 % topical gel APPLY 2 GRAMS TOPICALLY TWICE DAILY TO AFFECTE AREA(S) Date: 11/13/20 filled Source: ursula Name: donepeziL 10 mg tablet TAKE 1 TABLET BY MOUTH EVERY DAY IN THE EVENING Date: 10/08/21 filled Source: martharimartha Name: doxazosin 2 mg tablet TAKE 1 TABLET BY MOUTH ONCE DAILY Date: 10/08/21 filled Source: [facility] Name: DULoxetine 60 mg capsule,delayed release TAKE 1 CAPSULE BY MOUTH EVERY DAY Date: 10/08/21 filled Source: martharimartha Name: ezetimibe 10 mg tablet TAKE 1 TABLET BY MOUTH EVERY DAY Date: 10/08/21 filled Source: [facility] Name: FLUoxetine 40 mg capsule TAKE 1 CAPSULE BY MOUTH ONCE DAILY *EMERGENCY REILL* Date: 08/08/21 filled Source: martharimartha Name: gabapentin 800 mg tablet TAKE 1 TABLET BY MOUTH THREE TIMES DAILY Date: 11/07/21 prescribed Source: Maryan Tony M.D. Name: glipiZIDE 5 mg tablet TAKE TWO (2) TABLETS BY MOUTH TWICE DAILY BEFORE MELS Date: 10/08/21 filled Source: martharimartha Name: hydrOXYzine pamoate 50 mg capsule TAKE 1 CAPSULE BY MOUTH FOUR TIMES JILLIAN NEEDED *EMERGENCY REFILL* Date: 07/10/21 filled Source: surescripts Name: Januvia 25 mg tablet TAKE 1 TABLET BY MOUTH EVERY DAY Date: 10/08/21 filled Source: surescripts Name: Jardiance 25 mg tablet TAKE 1 TABLET BY MOUTH EVERY DAY IN THE MORNING Date: 10/08/21 filled Source: surescripts Name: Lant Solostar U-100 Insulin 100 unit/mL (3 mL) subcutaneous pen INJECT 0 UNITS SUBCUTANEOUSLY EVERY DAY Date: 10/18/21 filled Source: surescripts Name: mupirocin 2 % [...] Name: risperiDONE 1 (more content not included)... [facility] 08-29-2021 CANTON Patient name: CHARLI PORRAS MR#: [id number] Date of Service: 08/29/21 Acc#: [id number] : 1950 Age: 71 Sex: M Dictated by: Maryan Tony MD Patient Name : CHARLI PORRAS (71yo, M) ID# [id number] Appt. Date/Time : 08/29/2021 08:30AM : 1950 Service Dept. : [facility]PAIN MANAGEMENT Provider : MARYAN TONY M.D. Insurance Med Primary[place] [employer]MEDICARE REPLACEMENT/ADVANTAGE - HMO) Insurance # : [id number] Policy/Group # : [id number] Med Secondary: [facility] - [place]) Insurance # : [id number] Policy/Group # : [id number] Prescription: [facility] - Member is eligible. details Prescription: [facility] - Member is eligible. details Chief Complaint medication refill, *pain management refill Patient's Care Team Primary Care Provider: ERICKA CASSIDY MD: [address] [place] [address], , Referring Provider: SARAH FELIPEI: [address] [place] [address], Ph [phone], Other: CHARISSE VALENCIA MD: [address] [place] [address], , ax Patient's Pharmacies [id number] ([facility]): [address] [address], Ph [phone], Vitals BP: 104/71 sitting R arm 08/29/2021 09:07 am Ht: 5 ft 10 in (177.8 cm) 08/29/2021 09:01 am O2Sat: 95% 08/29/2021 09:07 am Pulse: 72 bpm 08/29/2021 09:07 am Pain Scale: 6 08/29/2021 09:01 am Allergies Reviewed Allergies NKDA Medications Reviewed Medications Name: allopurinoL 100 mg tablet TAKE 1 TABLET BY MOUTH EVERY DAY Date: 08/08/21 filled Source: surescripts Name: atorvastatin 10 mg tablet TAKE 1 TABLET BY MOUTH EVERY DAY Date: 08/08/21 filled Source: josescripts Name: bumetanide 1 mg tablet TAKE 1 TABLET BY MOUTH EVERY DAY NEEDED FOR LEGSWELLING Date: 08/08/21 filled Source: surescripts Name: busPIRone 15 mg tablet TAKE ONE (1) TABLET BY MOUTH TWICE DAILY Date: 07/10/21 filled Source: surescripts Name: Centrum Silver Men 300 mcg-600 mcg-300 mcg tablet Take 1 tablet(s) every ay by oral route. Date: 10/10/20 entered Source: Kerri Christensen Name: cloNIDine 0.2 mg/24 hr weekly transdermal patch APPLY 1 PATCH TOPICALLY EERY WEEK FOR ANXIETY Date: 08/08/21 filled Source: [facility] Name: cloNIDine HCL 0.1 mg tablet TAKE 1 TABLET BY MOUTH TWICE DAILY NEEDED EMERGENCY REFILL* Date: 08/15/21 filled Source: [facility] Name: diclofenac 1 % topical gel APPLY 2 GRAMS TOPICALLY TWICE DAILY TO AFFECTE AREA(S) Date: 11/13/20 filled Source: [facility] Name: donepeziL 10 mg tablet TAKE 1 TABLET BY MOUTH EVERY DAY IN THE EVENING Date: 08/08/21 filled Source: [facility] Name: doxazosin 2 mg tablet TAKE 1 TABLET BY MOUTH ONCE DAILY Date: 08/08/21 filled Source: [facility] Name: DULoxetine 60 mg capsule,delayed release TAKE 1 CAPSULE BY MOUTH EVERY DAY Date: 08/08/21 filled Source: [facility] Name: ezetimibe 10 mg tablet TAKE 1 TABLET BY MOUTH EVERY DAY Date: 08/08/21 filled Source: [facility] Name: FLUoxetine 40 mg capsule TAKE 1 CAPSULE BY MOUTH ONCE DAILY *EMERGENCY REILL* Date: 08/08/21 filled Source: [facility] Name: gabapentin 800 mg tablet TAKE 1 TABLET BY MOUTH THREE TIMES DAILY Date: 07/27/21 filled Source: [facility] Name: glipiZIDE 5 mg tablet TAKE TWO (2) TABLETS BY MOUTH TWICE DAILY BEFORE MELS Date: 08/08/21 filled Source: [facility] Name: hydrOXYzine pamoate 50 mg capsule TAKE 1 CAPSULE BY MOUTH FOUR TIMES JILLIAN NEEDED *EMERGENCY REFILL* Date: 07/10/21 filled Source: [facility] Name: Januvia 25 mg tablet TAKE 1 TABLET BY MOUTH EVERY DAY Date: 08/08/21 filled Source: [facility] Name: Jardiance 25 mg tablet TAKE 1 TABLET BY MOUTH EVERY DAY IN THE MORNING Date: 08/08/21 filled Source: [facility] Name: Deb Wynn U-100 Insulin 100 unit/mL (3 mL) subcutaneous pen inject 0 units sub-q once daily Date: 07/19/21 filled Source: ursula Name: nystatin 100,000 unit/gram topical powder APPLY TO THE AFFECTED AREA(S) TREE TIMES DAILY Date: 07/19/21 filled Source: ursula Name: pramipexole 0.125 mg tablet TAKE 1 TABLET BY MOUTH TWICE DAILY *EMERGENCYREFILL* Date: 08/08/21 filled Source: martharimartha Name: QUEtiapine 200 mg tablet TAKE 1 TABLET BY MOUTH AT BEDTIME Date: 08/08/21 filled Source: mar[facility]aripts Name: QUEtiapine 50 mg tablet TAKE 1 TABLET BY MOUTH EVERY MORNING Date: 06/23/21 filled Source: martharimartha Name: risperiDONE 1 mg tablet TAKE 1 TABLET BY MOUTH EVERY EVENING Date: 03/04/21 filled Source: martharimartha Name: rivastigmine 13.3 mg/24 hour transdermal patch Apply 1 patch(es) every da by transdermal route. Date: 08/08/21 filled Source: martharimartha Name: rivastigmine 4.6 mg/24 hour transdermal patch APPLY 1 PATCH TRANSDERMALLYONCE SENTHIL (more content not included)... Normal [facility] BASIC METABOLIC PANELon 07-02 Calcium [Mass/Vol] 9.0 mg/dL Normal 8.5-10.5 [facility] Comment on above: Performed By: #### C OVID19 [id number] #### [facility] [address] [place] [address] Chloride [Moles/Vol] 98 mmol/L Normal 98-107 [facility] Comment on above: Performed By: #### C OVID19 [id number] #### [facility] [address] [place] [address] CO2 [Moles/Vol] 29 mmol/L Normal 21-32 [facility] Comment on above: Performed By: #### C OVID19 [id number] #### [facility] [address] [place] [address] Creatinine [Mass/Vol] 1.32 mg/dL High 0.70-1.30 [facility] Comment on above: Performed By: #### C OVID19 [id number] #### [facility] [address] [place] [address] EST GLOM FILT > 60 Normal [facility] Comment on above: Result Comment: Result [...] 15 . Performed By: #### C OVID19 [id number] #### [facility] [address] [place] [address] ESTIMATED GLOM FILT RATE 53 mL/min/ Low [facility] Comment on above: Performed By: #### C OVID19 [id number] #### [facility] [address] [place] [address] Glucose [Mass/Vol] 303 mg/dL High 65-99 [facility] Comment on above: Performed By: #### C OVID19 [id number] #### [facility] [address] [place] [address] Potassium [Moles/Vol] 3.2 mmol/L Low 3.5-5.1 [facility] Comment on above: Performed By: #### C OVID19 [id number] #### [facility] [address] [place] [address] Sodium [Moles/Vol] 135 mmol/L Low 136-145 [facility] Comment on above: Performed By: #### C OVID19 380654 #### [facility] [address] [place] [address] Urea nitrogen [Mass/Vol] 21 mg/dL Normal 7-24 [facility] Comment on above: Performed By: #### C OVID19 180286 #### [facility] [address] [place] [address] CBC with DIFFERENTIALon 07-02 Basophils (Bld) [#/Vol] 0.1 10*3/uL Normal 0.0-0.1 [facility] Comment on above: Performed By: #### C OVID19 247970 #### [facility] [address] [place] [address] Basophils/100 WBC (Bld) 0.7 % Normal 0.0-1.0 [facility] Comment on above: Performed By: #### C OVID19 887956 #### [facility] [address] [place] [address] Eosinophils (Bld) [#/Vol] 0.3 10*3/uL Normal 0.0-0.4 [facility] Comment on above: Performed By: #### C OVID19 421995 #### [facility] [address] [place] [address] Eosinophils/100 WBC (Bld) 3.5 % Normal 1.0-4.0 [facility] Comment on above: Performed By: #### C OVID19 [id number] #### [facility] [address] [place] [address] Hematocrit (Bld) [Volume fraction] 41.3 % Low 42.0-52.0 [facility] Comment on above: Performed By: #### C OVID19 345157 #### [facility] [address] [place] [address] Hemoglobin (Bld) [Mass/Vol] 13.6 g/dL Low 14.0-18.0 [facility] Comment on above: Performed By: #### C OVID19 228468 #### [facility] [address] [place] [address] IG # 0.1 10*3/uL Normal 0.0-0.1 [facility] Comment on above: Performed By: #### C OVID19 589863 #### [facility] [address] [place] [address] IG % 1.0 % Normal 0.0-1.0 [facility] Comment on above: Performed By: #### C OVID19 777885 #### [facility] [address] [place] [address] Lymphocytes (Bld) [#/Vol] 1.8 10*3/uL Normal 1.3-4.4 [facility] Comment on above: Performed By: #### C OVID19 585581 #### [facility] [address] [place] [address] Lymphocytes/100 WBC (Bld) 25.4 % Low 27.0-41.0 [facility] Comment on above: Performed By: #### C OVID19 754276 #### [facility] [address] [place] [address] MCV (RBC) [Entitic vol] 89.2 fL Normal 80.0-94.0 [facility] Comment on above: Performed By: #### C OVID19 988417 #### [facility] [address] [place] [address] MEAN CORPUSCULAR HGB 29.4 pg Normal 27.0-31.0 [facility] Comment on above: Performed By: #### C OVID19 077441 #### [facility] [address] [place] [address] MEAN CORPUSCULAR HGB CONC 32.9 g/dl Low 33.0-37.0 [facility] Comment on above: Performed By: #### C OVID19 773763 #### [facility] [address] [place] [address] Monocytes (Bld) [#/Vol] 0.6 10*3/uL Normal 0.1-1.0 [facility] Comment on above: Performed By: #### C OVID19 951856 #### [facility] [address] [place] [address] Monocytes/100 WBC (Bld) 7.8 % Normal 3.0-9.0 [facility] Comment on above: Performed By: #### C OVID19 514720 #### [facility] [address] [place] [address] Neutrophils (Bld) [#/Vol] 4.4 10*3/uL Normal 2.3-7.9 [facility] Comment on above: Performed By: #### C OVID19 629582 #### [facility] [address] [place] [address] Neutrophils/100 WBC (Bld) 61.6 % Normal 47.0-73.0 [facility] Comment on above: Performed By: #### C OVID19 498851 #### [facility] [address] [place] [address] NUCLEATED RED BLOOD CELL 0.0 10*3/uL Normal 0.0-0.0 [facility] Comment on above: Performed By: #### C OVID19 193651 #### [facility] [address] [place] [address] NUCLEATED RED BLOOD CELL 0.0 % Normal 0.0-0.0 [facility] Comment on above: Performed By: #### C OVID19 312189 #### [facility] [address] [place] [address] PLATELET COUNT AUTOMATED 137 10*3/uL Normal 130-400 [facility] Comment on above: Performed By: #### C OVID19 006193 #### [facility] [address] [place] [address] Platelet mean volume (Bld) [Entitic vol] 10.0 fL Normal 9.6-12.3 [facility] Comment on above: Performed By: #### C OVID19 987701 #### [facility] [address] [place] [address] RBC (Bld) [#/Vol] 4.63 10*6/uL Normal 4.50-5.90 [facility] Comment on above: Performed By: #### C OVID19 504519 #### [facility] [address] [place] [address] RED CELL DISTRI WIDTH 14.6 % High 0-14.5 [facility] Comment on above: Performed By: #### C OVID19 238807 #### [facility] [address] [place] [address] WBC (Bld) [#/Vol] 7.1 10*3/uL Normal 4.8-10.8 [facility] Comment on above: Performed By: #### C OVID19 601249 #### [facility] [address] [place] [address] NOVL CORONAVIRUS NAAon 07-12 SARS-CoV-2 (COVID-19) RNA LIV+probe Ql (Unsp spec) Not detected Normal Not Detected [facility] Comment on above: Order Comment: Is th is patient considered a Person Under Investigation? N Result Comment: This nucleic acid amplification test was developed and its performance characteristics determined by [employer]. Nucleic acid amplification tests include RT- PCR [...] this assay. Performed By: #### C OVID19 859650 #### [facility] [address] [place] [address] CHEST AP ONLY (1V)on 022 [id number] Name: CHARLI PORRAS Jagjit Phys: LANCE MULLINS DO : 1950 Age: 71 Sex: M Acct: [id number] Loc: 425 1 Exam Date: 07/11/2021 Status: ADM IN Radiology No: [id number] Unit No: [id number] EXAM# TYPE/EXAM RESULT [id number] RAD/CHEST AP ONLY (1V) SEE REPORT INDICATION: [...] ERICKA CASSIDY Technologist: MURIEL GAUTAM Transcribed Date/Time: 07/11/2021 (6286) Kosher Sealer: LEEANNE Printed Date/Time: 07/11/2021 (8621) PAGE 1 Signed Report Normal [facility] SARS COVID 19 ANTIGENon 07-02 SARS [...] with COVID-19. NEGATIVE FOR SARS ANTIGEN Normal [facility] Comment on above: Performed By: #### C OVID19 189723 #### [facility] [address] [place] [address] BASIC METABOLIC PANELon 03-0 -2021 Calcium [Mass/Vol] 8.9 mg/dL Normal 8.5-10.5 [facility] Comment on above: Performed By: #### B MP, CBCD #### [facility] [address] [place] [address] Chloride [Moles/Vol] 99 mmol/L Normal 98-107 [facility] Comment on above: Performed By: #### B MP, CBCD #### [facility] [address] [place] [address] CO2 [Moles/Vol] 33 mmol/L High 21-32 [facility] Comment on above: Performed By: #### B MP, CBCD #### [facility] [address] [place] [address] Creatinine [Mass/Vol] 1.19 mg/dL Normal 0.70-1.30 [facility] Comment on above: Performed By: #### B MP, CBCD #### [facility] [address] [place] [address] EST GLOM FILT > 60 Normal [facility] Comment on above: Result Comment: Result [...] Performed By: #### B MP, CBCD #### [facility] [address] [place] [address] ESTIMATED GLOM FILT RATE 60 mL/min/ Normal [facility] Comment on above: Performed By: #### B MP, CBCD #### [facility] [address] [place] [address] Glucose [Mass/Vol] 258 mg/dL High 65-99 [facility] Comment on above: Performed By: #### B MP, CBCD #### [facility] [address] [place] [address] Potassium [Moles/Vol] 3.3 mmol/L Low 3.5-5.1 [facility] Comment on above: Performed By: #### B MP, CBCD #### [facility] [address] [place] [address] Sodium [Moles/Vol] 136 mmol/L Normal 136-145 [facility] Comment on above: Performed By: #### B MP, CBCD #### [facility] [address] [place] [address] Urea nitrogen [Mass/Vol] 19 mg/dL Normal 7-24 [facility] Comment on above: Performed By: #### B MP, CBCD #### [facility] [address] [place] [address] CBC with DIFFERENTIALon 03-0 Basophils (Bld) [#/Vol] 0.1 10*3/uL Normal 0.0-0.1 [facility] Comment on above: Performed By: #### B MP, CBCD #### [facility] [address] [place] [address] Basophils/100 WBC (Bld) 0.8 % Normal 0.0-1.0 [facility] Comment on above: Performed By: #### B MP, CBCD #### [facility] [address] [place] [address] Eosinophils (Bld) [#/Vol] 0.4 10*3/uL Normal 0.0-0.4 [facility] Comment on above: Performed By: #### B MP, CBCD #### [facility] [address] [place] [address] Eosinophils/100 WBC (Bld) 6.5 % High 1.0-4.0 [facility] Comment on above: Performed By: #### B MP, CBCD #### [facility] [address] [place] [address] Hematocrit (Bld) [Volume fraction] 42.4 % Normal 42.0-52.0 [facility] Comment on above: Performed By: #### B MP, CBCD #### [facility] [address] [place] [address] Hemoglobin (Bld) [Mass/Vol] 14.1 g/dL Normal 14.0-18.0 [facility] Comment on above: Performed By: #### B MP, CBCD #### [facility] [address] [place] [address] IG # 0.1 10*3/uL Normal 0.0-0.1 [facility] Comment on above: Performed By: #### B MP, CBCD #### [facility] [address] [place] [address] IG % 1.2 % High 0.0-1.0 [facility] Comment on above: Performed By: #### B MP, CBCD #### [facility] [address] [place] [address] Lymphocytes (Bld) [#/Vol] 1.5 10*3/uL Normal 1.3-4.4 [facility] Comment on above: Performed By: #### B MP, CBCD #### [facility] [address] [place] [address] Lymphocytes/100 WBC (Bld) 23.3 % Low 27.0-41.0 [facility] Comment on above: Performed By: #### B MP, CBCD #### [facility] [address] [place] [address] MCV (RBC) [Entitic vol] 88.9 fL Normal 80.0-94.0 [facility] Comment on above: Performed By: #### B MP, CBCD #### [facility] [address] [place] [address] MEAN CORPUSCULAR HGB 29.6 pg Normal 27.0-31.0 [facility] Comment on above: Performed By: #### B MP, CBCD #### [facility] [address] [place] [address] MEAN CORPUSCULAR HGB CONC 33.3 g/dl Normal 33.0-37.0 [facility] Comment on above: Performed By: #### B MP, CBCD #### [facility] [address] [place] [address] Monocytes (Bld) [#/Vol] 0.4 10*3/uL Normal 0.1-1.0 [facility] Comment on above: Performed By: #### B MP, CBCD #### [facility] [address] [place] [address] Monocytes/100 WBC (Bld) 6.8 % Normal 3.0-9.0 [facility] Comment on above: Performed By: #### B MP, CBCD #### [facility] [address] [place] [address] Neutrophils (Bld) [#/Vol] 4.0 10*3/uL Normal 2.3-7.9 [facility] Comment on above: Performed By: #### B MP, CBCD #### [facility] [address] [place] [address] Neutrophils/100 WBC (Bld) 61.4 % Normal 47.0-73.0 [facility] Comment on above: Performed By: #### B MP, CBCD #### [facility] [address] [place] [address] NUCLEATED RED BLOOD CELL 0.0 10*3/uL Normal 0.0-0.0 [facility] Comment on above: Performed By: #### B MP, CBCD #### [facility] [address] [place] [address] NUCLEATED RED BLOOD CELL 0.0 % Normal 0.0-0.0 [facility] Comment on above: Performed By: #### B MP, CBCD #### [facility] [address] [place] [address] PLATELET COUNT AUTOMATED 120 10*3/uL Low 130-400 [facility] Comment on above: Performed By: #### B MP, CBCD #### [facility] [address] [place] [address] Platelet mean volume (Bld) [Entitic vol] 8.9 fL Low 9.6-12.3 [facility] Comment on above: Performed By: #### B MP, CBCD #### [facility] [address] [place] [address] RBC (Bld) [#/Vol] 4.77 10*6/uL Normal 4.50-5.90 [facility] Comment on above: Performed By: #### B MP, CBCD #### [facility] [address] [place] [address] [id number] RED CELL DISTRI WIDTH 14.6 % High 0-14.5 [facility] Comment on above: Performed By: #### B MP, CBCD #### [facility] [address] [place] [address] [id number] WBC (Bld) [#/Vol] 6.4 10*3/uL Normal 4.8-10.8 [facility] Comment on above: Performed By: #### B MP, CBCD #### [facility] [address] [place] [address] BASIC METABOLIC PANELon 03-0 Calcium [Mass/Vol] 9.0 mg/dL Normal 8.5-10.5 [facility] Comment on above: Performed By: #### C [id number] #### [facility] [address] [place] [address] Chloride [Moles/Vol] 98 mmol/L Normal 98-107 [facility] Comment on above: Performed By: #### C OVID19 [id number] #### [facility] [address] [place] [address] CO2 [Moles/Vol] 31 mmol/L Normal 21-32 [facility] Comment on above: Performed By: #### C OVID19 [id number] #### [facility] [address] [place] [address] Creatinine [Mass/Vol] 1.32 mg/dL High 0.70-1.30 [facility] Comment on above: Performed By: #### C OVID19 [id number] #### [facility] [address] [place] [address] EST GLOM FILT > 60 Normal [facility] Comment on above: Result Comment: Result [...] 15 . Performed By: #### C OVID19 [id number] #### [facility] [address] [place] [address] ESTIMATED GLOM FILT RATE 53 mL/min/ Low [facility] Comment on above: Performed By: #### C OVID19 [id number] #### [facility] [address] [place] [address] Glucose [Mass/Vol] 290 mg/dL High 65-99 [facility] Comment on above: Performed By: #### C OVID19 [id number] #### [facility] [address] [place] [address] Potassium [Moles/Vol] 3.2 mmol/L Low 3.5-5.1 [facility] Comment on above: Performed By: #### C OVID19 [id number] #### [facility] [address] [place] [address] Sodium [Moles/Vol] 136 mmol/L Normal 136-145 [facility] Comment on above: Performed By: #### C OVID19 [id number] #### [facility] [address] [place] [address] Urea nitrogen [Mass/Vol] 19 mg/dL Normal 7-24 [facility] Comment on above: Performed By: #### C OVID19 [id number] #### [facility] [address] [place] [address] PROTHROMBIN TIMEon 2 INTERNATIONAL NORM RATIO 2.0 Normal 2.0-3.5 [facility] Comment on above: Result Comment: INR THERAPEUTIC RANGE: GROUP A 2.0-3.0 INR GROUP B 2.5-3.5 INR GROUP A SUGGESTED INDICATIONS: PROPHYLAXIS AND TREATMENT OF VENOUS THROMBOSIS TREATMENT OF PULMONARY EMBOLISM ATRIAL FIBRILLATION GROUP B SUGGESTED INDICATIONS: MECHANICAL PROSTHETIC VALVES Performed By: #### B MP, CBCD #### [facility] [address] [place] [address] PT Coag (PPP) [Time] 19.3 s High 8.9-12.2 [facility] Comment on above: Performed By: #### B MP, CBCD #### [facility] [address] [place] [address] BASIC METABOLIC PANELon 03-0 7-2022 Calcium [Mass/Vol] 9.1 mg/dL Normal 8.5-10.5 [facility] Comment on above: Performed By: #### B MP, CBCD #### [facility] [address] [place] [address] Chloride [Moles/Vol] 95 mmol/L Low 98-107 [facility] Comment on above: Performed By: #### B MP, CBCD #### [facility] [address] [place] [address] CO2 [Moles/Vol] 30 mmol/L Normal 21-32 [facility] Comment on above: Performed By: #### B MP, CBCD #### [facility] [address] [place] [address] Creatinine [Mass/Vol] 1.44 mg/dL High 0.70-1.30 [facility] Comment on above: Performed By: #### B MP, CBCD #### [facility] [address] [place] [address] EST GLOM FILT 58 ml/min [facility] Comment on above: Result Comment: Result [...] Performed By: #### B MP, CBCD #### [facility] [address] [place] [address] ESTIMATED GLOM FILT RATE 48 mL/min/ [facility] Comment on above: Performed By: #### B MP, CBCD #### [facility] [address] [place] [address] Glucose [Mass/Vol] 379 mg/dL High 65-99 [facility] Comment on above: Performed By: #### B MP, CBCD #### [facility] [address] [place] [address] Potassium [Moles/Vol] 3.2 mmol/L Low 3.5-5.1 [facility] Comment on above: Performed By: #### B MP, CBCD #### [facility] [address] [place] [address] Sodium [Moles/Vol] 133 mmol/L Low 136-145 [facility] Comment on above: Performed By: #### B MP, CBCD #### [facility] [address] [place] [address] Urea nitrogen [Mass/Vol] 22 mg/dL Normal 7-24 [facility] Comment on above: Performed By: #### B MP, CBCD #### [facility] [address] [place] [address]127 BLOOD CULTURE AEROBICon 03-0 BLOOD CULTURE AEROBIC BLOOD CULTURE AERO BIC NO BACTERIAL GROWTH BLOOD CULTURE ANAEROBIC NO BACTERIAL GROWTH Normal [facility] Comment on above: Performed By: #### B MP, CBCD #### [facility] [address] [place] [address] 26048 CBC with DIFFERENTIALon 03-0 Basophils (Bld) [#/Vol] 0.1 10*3/uL Normal 0.0-0.1 [facility] Comment on above: Performed By: #### B MP, CBCD #### [facility] [address] [place] [address] 36895 Basophils/100 WBC (Bld) 0.8 % Normal 0.0-1.0 [facility] Comment on above: Performed By: #### B MP, CBCD #### [facility] [address] [place] [address] 29645 Eosinophils (Bld) [#/Vol] 0.3 10*3/uL Normal 0.0-0.4 [facility] Comment on above: Performed By: #### B MP, CBCD #### [facility] [address] [place] [address] Eosinophils/100 WBC (Bld) 3.8 % Normal 1.0-4.0 [facility] Comment on above: Performed By: #### B MP, CBCD #### [facility] [address] [place] [address] Hematocrit (Bld) [Volume fraction] 40.9 % Low 42.0-52.0 [facility] Comment on above: Performed By: #### B MP, CBCD #### [facility] [address] [place] [address] 23156 Hemoglobin (Bld) [Mass/Vol] 13.6 g/dL Low 14.0-18.0 [facility] Comment on above: Performed By: #### B MP, CBCD #### [facility] [address] [place] [address] 19582 IG # 0.1 10*3/uL Normal 0.0-0.1 [facility] Comment on above: Performed By: #### B MP, CBCD #### [facility] [address] [place] [address] 32615 IG % 1.2 % High 0.0-1.0 [facility] Comment on above: Performed By: #### B MP, CBCD #### [facility] [address] [place] [address] 88661 Lymphocytes (Bld) [#/Vol] 1.8 10*3/uL Normal 1.3-4.4 [facility] Comment on above: Performed By: #### B MP, CBCD #### [facility] [address] [place] [address] 94859 Lymphocytes/100 WBC (Bld) 23.6 % Low 27.0-41.0 [facility] Comment on above: Performed By: #### B MP, CBCD #### [facility] [address] [place] [address] MCV (RBC) [Entitic vol] 89.9 fL Normal 80.0-94.0 [facility] Comment on above: Performed By: #### B MP, CBCD #### [facility] [address] [place] [address] 85348 MEAN CORPUSCULAR HGB 29.9 pg Normal 27.0-31.0 [facility] Comment on above: Performed By: #### B MP, CBCD #### [facility] [address] [place] [address] 27799 MEAN CORPUSCULAR HGB CONC 33.3 g/dl Normal 33.0-37.0 [facility] Comment on above: Performed By: #### B MP, CBCD #### [facility] [address] [place] [address] 44395 Monocytes (Bld) [#/Vol] 0.5 10*3/uL Normal 0.1-1.0 [facility] Comment on above: Performed By: #### B MP, CBCD #### [facility] [address] [place] [address] 29622 Monocytes/100 WBC (Bld) 7.0 % Normal 3.0-9.0 [facility] Comment on above: Performed By: #### B MP, CBCD #### [facility] [address] [place] [address] 66638 Neutrophils (Bld) [#/Vol] 4.8 10*3/uL Normal 2.3-7.9 [facility] Comment on above: Performed By: #### B MP, CBCD #### [facility] [address] [place] [address] 39609 Neutrophils/100 WBC (Bld) 63.6 % Normal 47.0-73.0 [facility] Comment on above: Performed By: #### B MP, CBCD #### [facility] [address] [place] [address] NUCLEATED RED BLOOD CELL 0.0 10*3/uL Normal 0.0-0.0 [facility] Comment on above: Performed By: #### B MP, CBCD #### [facility] [address] [place] [address] NUCLEATED RED BLOOD CELL 0.0 % Normal 0.0-0.0 [facility] Comment on above: Performed By: #### B MP, CBCD #### [facility] [address] [place] [address] PLATELET COUNT AUTOMATED 138 10*3/uL Normal 130-400 [facility] Comment on above: Performed By: #### B MP, CBCD #### [facility] [address] [place] [address] 14074 Platelet mean volume (Bld) [Entitic vol] 9.6 fL Normal 9.6-12.3 [facility] Comment on above: Performed By: #### B MP, CBCD #### [facility] [address] [place] [address] 56095 RBC (Bld) [#/Vol] 4.55 10*6/uL Normal 4.50-5.90 [facility] Comment on above: Performed By: #### B MP, CBCD #### [facility] [address] [place] [address] RED CELL DISTRI WIDTH 14.6 % High 0-14.5 [facility] Comment on above: Performed By: #### B MP, CBCD #### [facility] [address] [place] [address] 11018 WBC (Bld) [#/Vol] 7.5 10*3/uL Normal 4.8-10.8 [facility] Comment on above: Performed By: #### B MP, CBCD #### [facility] [address] [place] [address] 43317 PROTHROMBIN TIMEon 2 INTERNATIONAL NORM RATIO 1.7 Low 2.0-3.5 [facility] Comment on above: Result Comment: INR THERAPEUTIC RANGE: GROUP A 2.0-3.0 INR GROUP B 2.5-3.5 INR GROUP A SUGGESTED INDICATIONS: PROPHYLAXIS AND TREATMENT OF VENOUS THROMBOSIS TREATMENT OF PULMONARY EMBOLISM ATRIAL FIBRILLATION GROUP B SUGGESTED INDICATIONS: MECHANICAL PROSTHETIC VALVES Performed By: #### C OVID19 [id number] #### [facility] [address] [place] [address] PT Coag (PPP) [Time] 16.8 s High 8.9-12.2 [facility] Comment on above: Performed By: #### C OVID19 [id number] #### [facility] [address] [place] [address] NOVL CORONAVIRUS NAAon 07-07 SARS-CoV-2 (COVID-19) RNA LIV+probe Ql (Unsp spec) Not detected Normal Not Detected [facility] Comment on above: Order Comment: Is th is patient considered a Person Under Investigation? NADDITIONAL INSTRUCTIONS: FOR SNF Result Comment: This nucleic acid amplification test was developed and its performance characteristics determined by [employer]. Nucleic acid amplification tests include RT- PCR [...] in this assay. Performed By: #### C BCD, PT, BMP #### [facility] [address] [place] [address] BASIC METABOLIC PANELon 03-0 Calcium [Mass/Vol] 8.6 mg/dL Normal 8.5-10.5 [facility] Comment on above: Performed By: #### C BCNhan, PT, BMP #### [facility] [address] [place] [address] Chloride [Moles/Vol] 102 mmol/L Normal 98-107 [facility] Comment on above: Performed By: #### C BCD, PT, BMP #### [facility] [address] [place] [address] CO2 [Moles/Vol] 27 mmol/L Normal 21-32 [facility] Comment on above: Performed By: #### C BCNhan, PT, BMP #### [facility] [address] [place] [address] Creatinine [Mass/Vol] 1.14 mg/dL Normal 0.70-1.30 [facility] Comment on above: Performed By: #### C BCD, PT, BMP #### [facility] [address] [place] [address] EST GLOM FILT > 60 Normal [facility] Comment on above: Result Comment: Result [...] By: #### C BCD, PT, BMP #### [facility] [address] [place] [address] ESTIMATED GLOM FILT RATE > 60 Normal [facility] Comment on above: Performed By: #### C BCD, PT, BMP #### [facility] [address] [place] [address] Glucose [Mass/Vol] 184 mg/dL High 65-99 [facility] Comment on above: Performed By: #### C BCD, PT, BMP #### [facility] [address] [place] [address] 25057 Potassium [Moles/Vol] 3.4 mmol/L Low 3.5-5.1 [facility] Comment on above: Performed By: #### C BCD, PT, BMP #### [facility] [address] [place] [address] 99579 Sodium [Moles/Vol] 135 mmol/L Low 136-145 [facility] Comment on above: Performed By: #### C BCD, PT, BMP #### [facility] [address] [place] [address] 34151 Urea nitrogen [Mass/Vol] 16 mg/dL Normal 7-24 [facility] Comment on above: Performed By: #### C BCD, PT, BMP #### [facility] [address] [place] [address] 55796 CBC with DIFFERENTIALon 03-0 -2021 Basophils (Bld) [#/Vol] 0.1 10*3/uL Normal 0.0-0.1 [facility] Comment on above: Performed By: #### C BCD, PT, BMP #### [facility] [address] [place] [address] 22993 Basophils/100 WBC (Bld) 1.0 % Normal 0.0-1.0 [facility] Comment on above: Performed By: #### C BCD, PT, BMP #### [facility] [address] [place] [address] 16461 Eosinophils (Bld) [#/Vol] 0.4 10*3/uL Normal 0.0-0.4 [facility] Comment on above: Performed By: #### C BCD, PT, BMP #### [facility] [address] [place] [address] Eosinophils/100 WBC (Bld) 5.3 % High 1.0-4.0 [facility] Comment on above: Performed By: #### C BCD, PT, BMP #### [facility] [address] [place] [address] Hematocrit (Bld) [Volume fraction] 41.1 % Low 42.0-52.0 [facility] Comment on above: Performed By: #### C BCD, PT, BMP #### [facility] [address] [place] [address] Hemoglobin (Bld) [Mass/Vol] 13.5 g/dL Low 14.0-18.0 [facility] Comment on above: Performed By: #### C BCD, PT, BMP #### [facility] [address] [place] [address] 05474 IG # 0.1 10*3/uL Normal 0.0-0.1 [facility] Comment on above: Performed By: #### C BCD, PT, BMP #### [facility] [address] [place] [address] 29901 IG % 1.3 % High 0.0-1.0 [facility] Comment on above: Performed By: #### C BCD, PT, BMP #### [facility] [address] [place] [address] 10185 Lymphocytes (Bld) [#/Vol] 1.7 10*3/uL Normal 1.3-4.4 [facility] Comment on above: Performed By: #### C BCD, PT, BMP #### [facility] [address] [place] [address] Lymphocytes/100 WBC (Bld) 23.5 % Low 27.0-41.0 [facility] Comment on above: Performed By: #### C BCD, PT, BMP #### [facility] [address] [place] [address] 57501 MCV (RBC) [Entitic vol] 91.3 fL Normal 80.0-94.0 [facility] Comment on above: Performed By: #### C BCNhan, PT, BMP #### [facility] [address] [place] [address] MEAN CORPUSCULAR HGB 30.0 pg Normal 27.0-31.0 [facility] Comment on above: Performed By: #### C BCNhan, PT, BMP #### [facility] [address] [place] [address] 76280 MEAN CORPUSCULAR HGB CONC 32.8 g/dl Low 33.0-37.0 [facility] Comment on above: Performed By: #### C BCNhan, PT, BMP #### [facility] [address] [place] [address] 73920 Monocytes (Bld) [#/Vol] 0.6 10*3/uL Normal 0.1-1.0 [facility] Comment on above: Performed By: #### C BCD, PT, BMP #### [facility] [address] [place] [address] 86513 Monocytes/100 WBC (Bld) 8.4 % Normal 3.0-9.0 [facility] Comment on above: Performed By: #### C BCD, PT, BMP #### [facility] [address] [place] [address] 50037 Neutrophils (Bld) [#/Vol] 4.3 10*3/uL Normal 2.3-7.9 [facility] Comment on above: Performed By: #### C BCD, PT, BMP #### [facility] [address] [place] [address] 00569 Neutrophils/100 WBC (Bld) 60.5 % Normal 47.0-73.0 [facility] Comment on above: Performed By: #### C BCD, PT, BMP #### [facility] [address] [place] [address] 71560 NUCLEATED RED BLOOD CELL 0.0 10*3/uL Normal 0.0-0.0 [facility] Comment on above: Performed By: #### C BCD, PT, BMP #### [facility] [address] [place] [address] 31671 NUCLEATED RED BLOOD CELL 0.0 % Normal 0.0-0.0 [facility] Comment on above: Performed By: #### C BCD, PT, BMP #### [facility] [address] [place] [address] 16646 PLATELET COUNT AUTOMATED 138 10*3/uL Normal 130-400 [facility] Comment on above: Performed By: #### C BCD, PT, BMP #### [facility] [address] [place] [address] 20582 Platelet mean volume (Bld) [Entitic vol] 9.1 fL Low 9.6-12.3 [facility] Comment on above: Performed By: #### C BCNhan, PT, BMP #### [facility] [address] [place] [address] 17797 RBC (Bld) [#/Vol] 4.50 10*6/uL Normal 4.50-5.90 [facility] Comment on above: Performed By: #### C BCNhan, PT, BMP #### [facility] [address] [place] [address] 71108 RED CELL DISTRI WIDTH 15.0 % High 0-14.5 [facility] Comment on above: Performed By: #### C BCD, PT, BMP #### [facility] [address] [place] [address] 04320 WBC (Bld) [#/Vol] 7.1 10*3/uL Normal 4.8-10.8 [facility] Comment on above: Performed By: #### C BCD, PT, BMP #### [facility] [address] [place] [address] 16671 MAGNESIUMon 07-05-2021 Magnesium [Mass/Vol] 1.9 mg/dL Normal 1.5-2.1 [facility] Comment on above: Performed By: #### C BCD, PT, BMP #### [facility] [address] [place] [address] PROTHROMBIN TIMEon 2 INTERNATIONAL NORM RATIO 1.3 Low 2.0-3.5 [facility] Comment on above: Result Comment: INR THERAPEUTIC RANGE: GROUP A 2.0-3.0 INR GROUP B 2.5-3.5 INR GROUP A SUGGESTED INDICATIONS: PROPHYLAXIS AND TREATMENT OF VENOUS THROMBOSIS TREATMENT OF PULMONARY EMBOLISM ATRIAL FIBRILLATION GROUP B SUGGESTED INDICATIONS: MECHANICAL PROSTHETIC VALVES Performed By: #### C BCD, PT, BMP #### [facility] [address] [place] [address] PT Coag (PPP) [Time] 12.6 s High 8.9-12.2 [facility] Comment on above: Performed By: #### C BCD, PT, BMP #### [facility] [address] [place] [address] 71865 ALBUMIN ([facility])on 07-05-19 22 Albumin [Mass/Vol] 3.5 g/dL Abnormal 3.7-4.7 [facility] Comment on above: Result Comment: Perf ormed at: CB - [facility] [address] [id number] [employer]: Luis Alfredo Gutierres PhD, Phone: [phone] Performed By: #### C OVID19 [id number] #### [facility] [address] [place] [id number] BASIC METABOLIC PANELon Calcium [Mass/Vol] 8.6 mg/dL Normal 8.5-10.5 [facility] Comment on above: Performed By: #### C BCD, PT, BMP #### [facility] [address] [place] [address] Chloride [Moles/Vol] 104 mmol/L Normal 98-107 [facility] Comment on above: Performed By: #### C BCD, PT, BMP #### [facility] [address] [place] [address] CO2 [Moles/Vol] 28 mmol/L Normal 21-32 [facility] Comment on above: Performed By: #### C CHRIS, PT, BMP #### [facility] [address] [place] [address] Creatinine [Mass/Vol] 1.22 mg/dL Normal 0.70-1.30 [facility] Comment on above: Performed By: #### C CHRIS, PT, BMP #### [facility] [address] [place] [address] EST GLOM FILT > 60 Normal [facility] Comment on above: Result Comment: Result [...] By: #### C CHRIS, PT, BMP #### [facility] [address] [place] [address] ESTIMATED GLOM FILT RATE 58 mL/min/ Low [facility] Comment on above: Performed By: #### C CHRIS, PT, BMP #### [facility] [address] [place] [address] Glucose [Mass/Vol] 169 mg/dL High 65-99 [facility] Comment on above: Performed By: #### C BCNhan, PT, BMP #### [facility] [address] [place] [address] Potassium [Moles/Vol] 3.4 mmol/L Low 3.5-5.1 [facility] Comment on above: Performed By: #### C BCNhan, PT, BMP #### [facility] [address] [place] [address] Sodium [Moles/Vol] 138 mmol/L Normal 136-145 [facility] Comment on above: Performed By: #### C BCNhan, PT, BMP #### [facility] [address] [place] [address] 22700 Urea nitrogen [Mass/Vol] 17 mg/dL Normal 7-24 [facility] Comment on above: Performed By: #### C BCNhan, PT, BMP #### [facility] [address] [place] [address] 29078 CBC with DIFFERENTIALon 03-0 -2021 Basophils (Bld) [#/Vol] 0.1 10*3/uL Normal 0.0-0.1 [facility] Comment on above: Performed By: #### C CHRIS, PT, BMP #### [facility] [address] [place] [address] 88022 Basophils/100 WBC (Bld) 0.8 % Normal 0.0-1.0 [facility] Comment on above: Performed By: #### C CHRIS, PT, BMP #### [facility] [address] [place] [address] 25195 Eosinophils (Bld) [#/Vol] 0.3 10*3/uL Normal 0.0-0.4 [facility] Comment on above: Performed By: #### C BCNhan, PT, BMP #### [facility] [address] [place] [address] 52406 Eosinophils/100 WBC (Bld) 3.8 % Normal 1.0-4.0 [facility] Comment on above: Performed By: #### C BCNhan, PT, BMP #### [facility] [address] [place] [address] 76018 Hematocrit (Bld) [Volume fraction] 41.4 % Low 42.0-52.0 [facility] Comment on above: Performed By: #### C BCNhan, PT, BMP #### [facility] [address] [place] [address] Hemoglobin (Bld) [Mass/Vol] 13.6 g/dL Low 14.0-18.0 [facility] Comment on above: Performed By: #### C BCD, PT, BMP #### [facility] [address] [place] [address] IG # 0.1 10*3/uL Normal 0.0-0.1 [facility] Comment on above: Performed By: #### C BCD, PT, BMP #### [facility] [address] [place] [address] 42173 IG % 1.2 % High 0.0-1.0 [facility] Comment on above: Performed By: #### C BCD, PT, BMP #### [facility] [address] [place] [address] 11714 Lymphocytes (Bld) [#/Vol] 1.7 10*3/uL Normal 1.3-4.4 [facility] Comment on above: Performed By: #### C BCD, PT, BMP #### [facility] [address] [place] [address] 08418 Lymphocytes/100 WBC (Bld) 25.2 % Low 27.0-41.0 [facility] Comment on above: Performed By: #### C BCD, PT, BMP #### [facility] [address] [place] [address] 21667 MCV (RBC) [Entitic vol] 89.4 fL Normal 80.0-94.0 [facility] Comment on above: Performed By: #### C BCD, PT, BMP #### [facility] [address] [place] [address] 78915 MEAN CORPUSCULAR HGB 29.4 pg Normal 27.0-31.0 [facility] Comment on above: Performed By: #### C BCD, PT, BMP #### [facility] [address] [place] [address] 00197 MEAN CORPUSCULAR HGB CONC 32.9 g/dl Low 33.0-37.0 [facility] Comment on above: Performed By: #### C BCD, PT, BMP #### [facility] [address] [place] [address] Monocytes (Bld) [#/Vol] 0.6 10*3/uL Normal 0.1-1.0 [facility] Comment on above: Performed By: #### C BCD, PT, BMP #### [facility] [address] [place] [address] 66080 Monocytes/100 WBC (Bld) 9.2 % High 3.0-9.0 [facility] Comment on above: Performed By: #### C BCD, PT, BMP #### [facility] [address] [place] [address] Neutrophils (Bld) [#/Vol] 3.9 10*3/uL Normal 2.3-7.9 [facility] Comment on above: Performed By: #### C BCD, PT, BMP #### [facility] [address] [place] [address] Neutrophils/100 WBC (Bld) 59.8 % Normal 47.0-73.0 [facility] Comment on above: Performed By: #### C BCD, PT, BMP #### [facility] [address] [place] [address] NUCLEATED RED BLOOD CELL 0.0 10*3/uL Normal 0.0-0.0 [facility] Comment on above: Performed By: #### C BCD, PT, BMP #### [facility] [address] [place] [address] 99938 NUCLEATED RED BLOOD CELL 0.0 % Normal 0.0-0.0 [facility] Comment on above: Performed By: #### C BCD, PT, BMP #### [facility] [address] [place] [address] PLATELET COUNT AUTOMATED 142 10*3/uL Normal 130-400 [facility] Comment on above: Performed By: #### C BCD, PT, BMP #### [facility] [address] [place] [address] Platelet mean volume (Bld) [Entitic vol] 9.2 fL Low 9.6-12.3 [facility] Comment on above: Performed By: #### C BCD, PT, BMP #### [facility] [address] [place] [address] 63700 RBC (Bld) [#/Vol] 4.63 10*6/uL Normal 4.50-5.90 [facility] Comment on above: Performed By: #### C BCD, PT, BMP #### [facility] [address] [place] [address] 13070 RED CELL DISTRI WIDTH 14.9 % High 0-14.5 [facility] Comment on above: Performed By: #### C BCD, PT, BMP #### [facility] [address] [place] [address] 59912 WBC (Bld) [#/Vol] 6.6 10*3/uL Normal 4.8-10.8 [facility] Comment on above: Performed By: #### C BCD, PT, BMP #### [facility] [address] [place] [address] 79061 GRAM STAINon 07-04-2021 Microscopic observation Gram stain Nom (Unsp spec) GRAM STAIN FEW WHITE BLOOD CELLS FEW GRAM POSITIVE COCCI IN PAIRS WOUND CULTURE SKIN DARYN:PROBABLE CONTAMINATE Normal [facility] Comment on above: Performed By: #### C BCD, PT, BMP #### [facility] [address] [place] [address] OPERATIVE NOTEon 07-04-2021 Wood Machinist Report [place], [place] OPERATIVE NOTE NAME: CHARLI PORRAS ACCNaun #: [id number] UNIT #: [id number] ROOM: [facility] DOCTOR: BLAINE GUZMÁN DPM BIRTHDATE: [birth year] DOS: 07/04/2021 IN-HOUSE SURGICAL OPERATIVE REPORT PREOPERATIVE DIAGNOSIS: Osteomyelitis, fourth right toe. POSTOPERATIVE DIAGNOSIS: Osteomyelitis, fourth right toe. 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 ANESTHESIA: LMAC. ESTIMATED BLOOD LOSS: 5 mL TOURNIQUET: None. SURGEON: Blaine Guzmán DPM. BUTADIENE CONVERTOR OPERATOR: Luis Mckeon DPM. DRAINS: None. PACKING: None. [...] later today and tomorrow by the resident administration manager. BLAINE GUZMÁN DPM [place], [place] OPERATIVE NOTE NAME: CHARLI PORRAS UNIT #: [id number] ROOM: [facility] DOCTOR: BLAINE GUZMÁN DPM BIRTHDATE: [birth year] JOSE/YESENIA TID: [id number] CM:OPRECORD:OPERATIVE NOTE 1324 BLAINE GUZMÁN DPM 07/04/21 1428 interface Normal [facility] POST OPERATIVE PROGRESS NOTE on 07-04-2021 Wood Machinist Report [place], [place] POST OPERATIVE PROGRESS NOTE NAME: CHARLI PORRAS UNIT #: [id number] STATUS: ADM IN SURGEON: RADU ANAND DPM [...] Anesthesia: MAC CM:POSTOP DICT: RADU ANAND DPM [id number] [facility] Wood Machinist Report [place], [place] POST OPERATIVE PROGRESS NOTE NAME: CHARLI PORRAS UNIT #: [id number] STATUS: ADM IN SURGEON: BLAINE GUZMÁN DPM ROOM: 425 DATE: 07/04/21 ATTENDING: HERIBERTO [...] BLAINE GUZMÁN DPM Electronically Signed 07/04/21 1224 [phone] [facility] PROTHROMBIN TIMEon 2 INTERNATIONAL NORM RATIO 1.6 Low 2.0-3.5 [facility] Comment on above: Result Comment: INR THERAPEUTIC RANGE: GROUP A 2.0-3.0 INR GROUP B 2.5-3.5 INR GROUP A SUGGESTED INDICATIONS: PROPHYLAXIS AND TREATMENT OF VENOUS THROMBOSIS TREATMENT OF PULMONARY EMBOLISM ATRIAL FIBRILLATION GROUP B SUGGESTED INDICATIONS: MECHANICAL PROSTHETIC VALVES Performed By: #### C BCD, PT, BMP #### [facility] [address] [place] [address] 80020 PT Coag (PPP) [Time] 15.9 s High 8.9-12.2 [facility] Comment on above: Performed By: #### C BCD, PT, BMP #### [facility] [address] [place] [address] 70122 TOEon 07-04-2021 TOE -- ---- RUN DATE: 07/15/21 [facility] LIVE PAGE 1 RUN TIME: 1509 Specimen Inquiry RUN USER: INTERFACE ---- PATIENT: CHARLI PORRAS LOC: 4E U #: [id number] AGE/SX: 71/M ROOM: [facility] RE07/02/[address]: HERIBERTO CHRISTIANSEN DO : [birth year] BED: 1 DIS: 07/12/21 STATUS: DIS IN TLOC: ---- SPEC #: [id number] RECD: 07/05/21 STATUS: OPAL CURRY #: [id number] ERIC: 07/04/21- SUBM DR: BLAINE GUZMÁN DPM ENTERED: 07/05/21 SP TYPE: TOE OTHR DR: KULDIP MARCOS,HERIBERTO CASSIDY,ERICKA LAGUNA ORDERED: MARCEL, LEVEL 3 ([id number]), SURGICAL SPEC COMMENTS: REFERRING MEDICAL DOCTOR: MARCO SURGEON: MARCO # OF CONTAINERS 1 TISSUE SUBMITTED: RIGHT FOURTH TOE PROCEDURE: AMPUTATION RIGHT FOURTH TOE PRELIMINARY DIAGNOSIS: OSTEOMYLITIS RIGHT FOOT ADDENDUM Addendum #1 Entered: 07/12/21 The margin of excision is negative for [...] is deformed. The skin is peeling off. Food Storeroom Clerk sections submitted in two cassettes. SURGICAL PROCEDURE: AMPUTATION RIGHT FOURTH TOE CONTINUED ON NEXT PAGE ---- RUN DATE: 07/15/21 [facility] LIVE PAGE 2 RUN TIME: 1509 Specimen Inquiry RUN USER: INTERFACE ---- SPEC #: [id number] PATIENT: CHARLI PORRAS #[id number] (Continued) ---- TISSUE SUBMITTED RIGHT FOURTH TOE ---- Signed TESS ADRIAN 07/10/21 1449 ---- END OF REPORT Normal [facility] Comment on above: Order Comment: REFER RING MEDICAL DOCTOR: KINDRA: MARCO# OF CONTAINERS 1TISSUE SUBMITTED: RIGHT FOURTH TOEPROCEDURE: AMPUTATION RIGHT FOURTH TOEPRELIMINARY DIAGNOSIS: OSTEOMYLITIS RIGHT FOOT Performed By: #### C BCD, PT, BMP #### [facility] [address] [place] [address] US ARTERIAL LOWER EXT BILATo n 07-04-2021 USARTLEB Name: CHARLI PORRAS Phys: RADU ANAND DPM : 1950 Age: 71 Sex: M Acct: [id number] Loc: 425 1 Exam Date: 07/03/2021 Status: ADM IN Radiology No: [id number] Unit No: [id number] EXAM# TYPE/EXAM RESULT [id number] US/US ARTERIAL LOWER EXT BILAT SEE REPORT [...] follows: Right EIA: 163 cm/s, triphasic Right ASSEMBLY AND PACKING SUPERVISOR: 145 cm/s, triphasic Right Proximal SFA: 127 cm/s, triphasic Right Mid SFA: 129 cm/s, triphasic Right Distal SFA: 79 cm/s, triphasic Right Popliteal: 134 cm/s, triphasic Right GLASS ENGRAVER: 182 cm/s, biphasic Right KENN: 162 cm/s, biphasic Right Peroneal: no images obtained The peak velocities and waveforms in the left lower extremity are as follows: Left EIA: 167 cm/s, triphasic Left ASSEMBLY AND PACKING SUPERVISOR: 168/ cm/s, triphasic Left Proximal SFA: 157 cm/s, triphasic Left Mid SFA: 93 cm/s, triphasic Left Distal SFA: 99 cm/s, triphasic Left Popliteal: 102 cm/s, triphasic Left GLASS ENGRAVER: 191 cm/s, triphasic Left KENN: 113 cm/s, biphasic Left dorsalis pedis: 71 cm/s, monophasic PAGE 1 Signed Report (CONTINUED) Name: CHARLI PORRAS Phys: REVA AUGUSTINRADU : 1950 Age: 71 Sex: M Acct: [id number] Loc: 425 1 Exam Date: 07/03/2021 Status: ADM IN Radiology No: [id number] Unit No: [id number] EXAM# TYPE/EXAM RESULT [id number] US/US ARTERIAL LOWER EXT BILAT SEE REPORT IMPRESSION: Limited evaluation. No evidence of significant arterial disease suggested. Signed by Lizz Oscar MD REPORT SIGNED IN OTHER VENDOR SYSTEM 07/04/2021 Reported By: LIZZ OSCAR MD CC: ERICKA CASSIDY Technologist: ZULEMA WORTHY Transcribed Date/Time: 07/04/2021 (916) Kosher Sealer: LEEANNE Printed Date/Time: 07/04/2021 (916) PAGE 2 Signed Report Normal [facility] ACT PARTIAL THROMBO TIMEon 0 07-03-2021 ACT PARTIAL THROMBO TIME 46.1 SECONDS High 20.0-32.1 [facility] Comment on above: Result Comment: APTT THERAPEUTIC RANGE = 51.3 TO 62.7 SECONDS Performed By: #### C BCD, PT, BMP #### [facility] [address] [place] [address] ALBUMIN ([facility])on 07-04-19 Albumin [Mass/Vol] 3.8 g/dL Normal 3.7-4.7 [facility] Comment on above: Result Comment: Perf ormed at: CB - [facility] [address] [id number] Citrus Peeler: Luis Alfredo Gutierres PhD, Phone: [phone] Performed By: #### B MP, CBCD #### [facility] [address] [place] [address]2346 CBC with DIFFERENTIALon 030 Basophils (Bld) [#/Vol] 0.0 10*3/uL Normal 0.0-0.1 [facility] Comment on above: Performed By: #### C BCD, PT, BMP #### [facility] [address] [place] [address] 32862 Basophils/100 WBC (Bld) 0.6 % Normal 0.0-1.0 E [facility] Comment on above: Performed By: #### C BCD, PT, BMP #### [facility] [address] [place] [address] 75041 Eosinophils (Bld) [#/Vol] 0.2 10*3/uL Normal 0.0-0.4 [facility] Comment on above: Performed By: #### C BCD, PT, BMP #### [facility] [address] [place] [address]684 Eosinophils/100 WBC (Bld) 2.8 % Normal 1.0-4.0 [facility] Comment on above: Performed By: #### C BCD, PT, BMP #### [facility] [address] [place] [address] 16997 Hematocrit (Bld) [Volume fraction] 42.6 % Normal 42.0-52.0 [facility] Comment on above: Performed By: #### C BCD, PT, BMP #### [facility] [address] [place] [address] 03903 Hemoglobin (Bld) [Mass/Vol] 14.1 g/dL Normal 14.0-18.0 [facility] Comment on above: Performed By: #### C BCD, PT, BMP #### [facility] [address] [place] [address] 19540 IG # 0.1 10*3/uL Normal 0.0-0.1 [facility] Comment on above: Performed By: #### C BCD, PT, BMP #### [facility] [address] [place] [address] IG % 1.3 % High 0.0-1.0 [facility] Comment on above: Performed By: #### C BCD, PT, BMP #### [facility] [address] [place] [address] Lymphocytes (Bld) [#/Vol] 1.4 10*3/uL Normal 1.3-4.4 [facility] Comment on above: Performed By: #### C BCD, PT, BMP #### [facility] [address] [place] [address] 39104 Lymphocytes/100 WBC (Bld) 22.2 % Low 27.0-41.0 [facility] Comment on above: Performed By: #### C BCD, PT, BMP #### [facility] [address] [place] [address] 83145 MCV (RBC) [Entitic vol] 89.7 fL Normal 80.0-94.0 [facility] Comment on above: Performed By: #### C BCD, PT, BMP #### [facility] [address] [place] [address] 14352 MEAN CORPUSCULAR HGB 29.7 pg Normal 27.0-31.0 [facility] Comment on above: Performed By: #### C BCD, PT, BMP #### [facility] [address] [place] [address] 84049 MEAN CORPUSCULAR HGB CONC 33.1 g/dl Normal 33.0-37.0 [facility] Comment on above: Performed By: #### C BCD, PT, BMP #### [facility] [address] [place] [address] 05749 Monocytes (Bld) [#/Vol] 0.6 10*3/uL Normal 0.1-1.0 [facility] Comment on above: Performed By: #### C BCD, PT, BMP #### [facility] [address] [place] [address] 53500 Monocytes/100 WBC (Bld) 9.9 % High 3.0-9.0 E [facility] Comment on above: Performed By: #### C BCNhan, PT, BMP #### [facility] [address] [place] [address] Neutrophils (Bld) [#/Vol] 4.0 10*3/uL Normal 2.3-7.9 [facility] Comment on above: Performed By: #### C BCD, PT, BMP #### [facility] [address] [place] [address] Neutrophils/100 WBC (Bld) 63.2 % Normal 47.0-73.0 [facility] Comment on above: Performed By: #### C BCD, PT, BMP #### [facility] [address] [place] [address] 36261 NUCLEATED RED BLOOD CELL 0.0 10*3/uL Normal 0.0-0.0 [facility] Comment on above: Performed By: #### C BCD, PT, BMP #### [facility] [address] [place] [address] 28404 NUCLEATED RED BLOOD CELL 0.0 % Normal 0.0-0.0 [facility] Comment on above: Performed By: #### C BCD, PT, BMP #### [facility] [address] [place] [address] 50902 PLATELET COUNT AUTOMATED 146 10*3/uL Normal 130-400 [facility] Comment on above: Performed By: #### C BCD, PT, BMP #### [facility] [address] [place] [address] 28609 Platelet mean volume (Bld) [Entitic vol] 9.5 fL Low 9.6-12.3 [facility] Comment on above: Performed By: #### C BCD, PT, BMP #### [facility] [address] [place] [address] RBC (Bld) [#/Vol] 4.75 10*6/uL Normal 4.50-5.90 [facility] Comment on above: Performed By: #### C BCD, PT, BMP #### [facility] [address] [place] [address] 38561 RED CELL DISTRI WIDTH 14.7 % High 0-14.5 Eas t [facility] Comment on above: Performed By: #### C BCD, PT, BMP #### [facility] [address] [place] [address] 04315 WBC (Bld) [#/Vol] 6.4 10*3/uL Normal 4.8-10.8 [facility] Comment on above: Performed By: #### C BCD, PT, BMP #### [facility] [address] [place] [address] 97072 CHEST AP ONLY (1V)on 022 [id number] Name: CHARLI PORRAS Jagjit Phys: SUBHA DO,ANMOL Davis : 1950 Age: 71 Sex: M Acct: [id number] Loc: 425 1 Exam Date: 07/03/2021 Status: ADM IN Radiology No: [id number] Unit No: [id number] EXAM# TYPE/EXAM RESULT [id number] RAD/CHEST AP ONLY (1V) SEE REPORT INDICATION: [...] CASSIDY Technologist: CRISTINA NICOLE Transcribed Date/Time: 07/03/2021 (4627) Kosher Sealer: LEEANNE Printed Date/Time: 07/03/2021 (3191) PAGE 1 Signed Report Normal [facility] COMPREHENSIVE METABOLIC PANE Nolan 07-03-2021 ALBUMIN. ND Normal [facility] Comment on above: Result Comment: See send out ALBUMIN from [facility]. Performed By: #### C BCD, PT, BMP #### [facility] [address] [place] [address] ALP [Catalytic activity/Vol] 85 U/L Normal 45-117 [facility] Comment on above: Performed By: #### C BCD, PT, BMP #### [facility] [address] [place] [address] ALT [Catalytic activity/Vol] 31 U/L Normal 12-78 [facility] Comment on above: Performed By: #### C BCD, PT, BMP #### [facility] [address] [place] [address] AST [Catalytic activity/Vol] 23 U/L Normal 3-35 [facility] Comment on above: Performed By: #### C BCD, PT, BMP #### [facility] [address] [place] [address] Bilirubin [Mass/Vol] 0.7 mg/dL Normal 0.2-1.0 [facility] Comment on above: Performed By: #### C BCD, PT, BMP #### [facility] [address] [place] [address] Calcium [Mass/Vol] 8.7 mg/dL Normal 8.5-10.5 [facility] Comment on above: Performed By: #### C BCD, PT, BMP #### [facility] [address] [place] [address] Chloride [Moles/Vol] 103 mmol/L Normal 98-107 [facility] Comment on above: Performed By: #### C BCD, PT, BMP #### [facility] [address] [place] [address] CO2 [Moles/Vol] 27 mmol/L Normal 21-32 [facility] Comment on above: Performed By: #### C BCD, PT, BMP #### [facility] [address] [place] [address] Creatinine [Mass/Vol] 1.16 mg/dL Normal 0.70-1.30 [facility] Comment on above: Performed By: #### C BCNhan, PT, BMP #### [facility] [address] [place] [address] EST GLOM FILT > 60 Normal [facility] Comment on above: Result Comment: Result [...] < 15 . Performed By: #### C BCNhan, PT, BMP #### [facility] [address] [place] [address] ESTIMATED GLOM FILT RATE > 60 Normal [facility] Comment on above: Performed By: #### C BCNhan, PT, BMP #### [facility] [address] [place] [address] Glucose [Mass/Vol] 171 mg/dL High 65-99 [facility] Comment on above: Performed By: #### C BCD, PT, BMP #### [facility] [address] [place] [address] Potassium [Moles/Vol] 3.4 mmol/L Low 3.5-5.1 [facility] Comment on above: Performed By: #### C BCD, PT, BMP #### [facility] [address] [place] [address] Protein [Mass/Vol] 7.0 g/dL Normal 6.4-8.2 [facility] Comment on above: Performed By: #### C BCD, PT, BMP #### [facility] [address] [place] [address] Sodium [Moles/Vol] 136 mmol/L Normal 136-145 [facility] Comment on above: Performed By: #### C BCD, PT, BMP #### [facility] [address] [place] [address] Urea nitrogen [Mass/Vol] 14 mg/dL Normal 7-24 [facility] Comment on above: Performed By: #### C BCD, PT, BMP #### [facility] [address] [place] [address] CONTRAST/ECHO COMPLETEon CRDECCON Name: CHARLI PORRAS Phys: KAILEY MARCOSGREGG : 1950 Age: 71 Sex: M Acct: [id number] Loc: 425 1 Exam Date: 07/03/2021 Status: ADM IN Radiology No: [id number] Unit No: [id number] EXAM# TYPE/EXAM RESULT [id number] ECHO/CONTRAST/ECHO COMPLETE SEE REPORT AN ADDENDUM IS [...] : 1950 Age: 71 Sex: M Acct: [id number] Loc: 425 1 Exam Date: 07/03/2021 Status: ADM IN Radiology No: [id number] Unit No: [id number] EXAM# TYPE/EXAM RESULT [id number] ECHO/CONTRAST/ECHO COMPLETE SEE REPORT AN ADDENDUM IS [...] : 1950 Age: 71 Sex: M Acct: [id number] Loc: 425 1 Exam Date: 07/03/2021 Status: ADM IN Radiology No: [id number] Unit No: [id number] EXAM# TYPE/EXAM RESULT [id number] ECHO/CONTRAST/ECHO COMPLETE SEE REPORT AN ADDENDUM IS [...] 3 Signed Report (CONTINUED) Name: CHARLI PORRAS Jagjit Phys: GREGG BONNER DO : 1950 Age: 71 Sex: M Acct: [id number] Loc: 425 1 Exam Date: 07/03/2021 Status: ADM IN Radiology No: [id number] Unit No: [id number] EXAM# TYPE/EXAM RESULT [id number] ECHO/CONTRAST/ECHO COMPLETE SEE REPORT AN ADDENDUM IS [...] agent. PAGE 4 Signed Report (CONTINUED) Name: CHIQUITACHARLI Jagjit Phys: GREGG BONNER DO : 1950 Age: 71 Sex: M Acct: [id number] Loc: 425 1 Exam Date: 07/03/2021 Status: ADM IN Radiology No: [id number] Unit No: [id number] (more content not included)... Normal [facility] FOLIC ACIDon 07-03-2021 FOLIC ACID 23.06 ng/mL Normal >5.38 [facility] Comment on above: Result Comment: 0.35 - 3.7 ng/mL - Folate Deficiency 3.38 - 5.38 ng/mL - Indeterminate > 5.38 ng/mL - Normal Performed By: #### C CHRIS, PT, BMP #### [facility] [address] [place] [address] FREE T4on 07-03-2021 Free T4 [Mass/Vol] 0.85 ng/dL Normal 0.76-1.46 [facility] Comment on above: Performed By: #### C MAGI PEREZ, BMP #### [facility] [address] [place] [address] TTY4Ieg 07-03-2021 ESTIMATED AVERAGE GLUCOSE 226 Normal [facility] Comment on above: Performed By: #### C CHRIS, PT, BMP #### [facility] [address] [place] [address] HbA1c (Bld) [Mass fraction] 9.5 % High 4.8-5.6 [facility] Comment on above: Result Comment: Standarization of method based on National Glycohemoglobin Standardization Program (NGSP). HEMOGLOBIN A1c(%) DEGREE of GLUCOSE CONTROL 5.7-6.4% Prediabetes range >6.4% Diagnosis of Diabetes <7% Glycemic control for adults with Diabetes Performed By: #### C CHRIS, PT, BMP #### [facility] [address] [place] [address] LIPID PANELon 07-03-2021 Cholesterol [Mass/Vol] 102 mg/dL Normal <[address] [facility] Comment on above: Performed By: #### C BCD, PT, BMP #### [facility] [address] [place] [address] Cholesterol in HDL [Mass/Vol] 34 mg/dL Low 40-60 [facility] Comment on above: Performed By: #### C BCD, PT, BMP #### [facility] [address] [place] [address] Cholesterol in LDL [Mass/Vol] 20 mg/dL Normal 9-159 [facility] Comment on above: Performed By: #### C BCD, PT, BMP #### [facility] [address] [place] [address] Triglyceride [Mass/Vol] 241 mg/dL High <150 E [facility] Comment on above: Result Comment: TRIGLYCERIDE RISK ASSESSMENT: 150-199 mg/dl BORDERLINE HIGH >200 mg//dl HIGH . Performed By: #### C BCD, PT, BMP #### [facility] [address] [place] [address] VLDL CHOLESTEROL 48 mg/dL High 6-40 [facility] Comment on above: Performed By: #### C BCD, PT, BMP #### [facility] [address] [place] [address] MAGNESIUMon 07-03-2021 Magnesium [Mass/Vol] 1.8 mg/dL Normal 1.5-2.1 [facility] Comment on above: Performed By: #### C BCD, PT, BMP #### [facility] [address] [place] [address] PHOSPHOROUSon 07-03-2021 PHOSPHOROUS 3.7 mg/dL Normal 2.5-4.9 [facility] Comment on above: Performed By: #### C BCD, PT, BMP #### [facility] [address] [place] [address] PROTHROMBIN TIMEon 2 INTERNATIONAL NORM RATIO 2.5 Normal 2.0-3.5 [facility] Comment on above: Result Comment: INR THERAPEUTIC RANGE: GROUP A 2.0-3.0 INR GROUP B 2.5-3.5 INR GROUP A SUGGESTED INDICATIONS: PROPHYLAXIS AND TREATMENT OF VENOUS THROMBOSIS TREATMENT OF PULMONARY EMBOLISM ATRIAL FIBRILLATION GROUP B SUGGESTED INDICATIONS: MECHANICAL PROSTHETIC VALVES Performed By: #### C BCD, PT, BMP #### [facility] [address] [place] [address] 11892 PT Coag (PPP) [Time] 24.2 s High 8.9-12.2 [facility] Comment on above: Performed By: #### C BCD, PT, BMP #### [facility] [address] [place] [address] THYROID STIM HORMONE (HS)on 07-03-2021 THYROID STIM HORMONE (HS) 2.660 uIU/ml Normal 0.358-4.75 [facility] Comment on above: Performed By: #### C BCD, PT, BMP #### [facility] [address] [place] [address] 68827 VITAMIN B12on 07-03-2021 Cobalamin (Vitamin B12) [Mass/Vol] 528 pg/mL Normal 247-911 [facility] Comment on above: Result Comment: 247 - 911 pg/mL - Normal, Vitamin B12 Sufficiency Performed By: #### C BCD, PT, BMP #### [facility] [address] [place] [address] 87054 VITAMIN D, 25-HYDROXYon 03- VITAMIN D, 25-HYDROXY 25.6 ng/mL Low 30-100 [facility] Comment on above: Result Comment: < 20 ng/mL - Vitamin D Deficiency 20 - 30 ng/mL - Vitamin D Insufficiency 30 - 100 ng/mL - Vitamin D sufficiency > 100 ng/mL - Vitamin D Toxicity Performed By: #### C OVID19 117121 #### [facility] [address] [place] [address] ACT PARTIAL THROMBO TIMEon 0 07-02-2021 ACT PARTIAL THROMBO TIME 46.4 SECONDS High 20.0-32.1 [facility] Comment on above: Result Comment: APTT THERAPEUTIC RANGE = 51.3 TO 62.7 SECONDS Performed By: #### L ABASE, CMP, PT, CBCD, APTT #### [facility] [address] [place] [address] #### ALB SO #### [facility] [address] [place] [address] C-REACTIVE PROTEINon 03-01-2 022 C-REACTIVE PROTEIN 5.30 MG/DL High 0-0.3 [facility] Comment on above: Result Comment: This method is intended for the detection and evaluation of infection, tissue injury and inflammatory disease. This method is not intended for cardiovascular risk assessment. * Performed By: #### B MP, CBCD #### [facility] [address] [place] [address] CBC with DIFFERENTIALon 03-0 Basophils (Bld) [#/Vol] 0.0 10*3/uL Normal 0.0-0.1 [facility] Comment on above: Performed By: #### L ABASE, CMP, PT, CBCD, APTT #### [facility] [address] [place] [address] #### ALB SO #### [facility] [address] [place] [address] Basophils/100 WBC (Bld) 0.6 % Normal 0.0-1.0 [facility] Comment on above: Performed By: #### L ABASE, CMP, PT, CBCD, APTT #### [facility] [address] [place] [address] #### ALB SO #### [facility] [address] [place] [address] Eosinophils (Bld) [#/Vol] 0.2 10*3/uL Normal 0.0-0.4 [facility] Comment on above: Performed By: #### L ABASE, CMP, PT, CBCD, APTT #### [facility] [address] [place] [address] #### ALB SO #### [facility] [address] [place] [address] Eosinophils/100 WBC (Bld) 2.3 % Normal 1.0-4.0 [facility] Comment on above: Performed By: #### L ABASE, CMP, PT, CBCD, APTT #### [facility] [address] [place] [address] #### ALB SO #### [facility] [address] [place] [address] Hematocrit (Bld) [Volume fraction] 44.1 % Normal 42.0-52.0 [facility] Comment on above: Performed By: #### L ABASE, CMP, PT, CBCD, APTT #### [facility] [address] [place] [address] #### ALB SO #### [facility] [address] [place] [address] Hemoglobin (Bld) [Mass/Vol] 14.6 g/dL Normal 14.0-18.0 [facility] Comment on above: Performed By: #### L ABASE, CMP, PT, CBCD, APTT #### [facility] [address] [place] [address] #### ALB SO #### [facility] [address] [place] [address] IG # 0.1 10*3/uL Normal 0.0-0.1 [facility] Comment on above: Performed By: #### L ABASE, CMP, PT, CBCD, APTT #### [facility] [address] [place] [address] #### ALB SO #### [facility] [address] [place] [address] IG % 1.6 % High 0.0-1.0 [facility] Comment on above: Performed By: #### L ABASE, CMP, PT, CBCD, APTT #### [facility] [address] [place] [address] #### ALB SO #### [facility] [address] [place] [address] Lymphocytes (Bld) [#/Vol] 1.2 10*3/uL Low 1.3-4.4 [facility] Comment on above: Performed By: #### L ABASE, CMP, PT, CBCD, APTT #### [facility] [address] [place] [address] #### ALB SO #### [facility] [address] [place] [address] Lymphocytes/100 WBC (Bld) 17.0 % Low 27.0-41.0 [facility] Comment on above: Performed By: #### L ABASE, CMP, PT, CBCD, APTT #### [facility] [address] [place] [address] #### ALB SO #### [facility] [address] [place] [address] MCV (RBC) [Entitic vol] 90.9 fL Normal 80.0-94.0 [facility] Comment on above: Performed By: #### L ABASE, CMP, PT, CBCD, APTT #### [facility] [address] [place] [address] #### ALB SO #### [facility] [address] [place] [address] MEAN CORPUSCULAR HGB 30.1 pg Normal 27.0-31.0 [facility] Comment on above: Performed By: #### L ABASE, CMP, PT, CBCD, APTT #### [facility] [address] [place] [address] #### ALB SO #### [facility] [address] [place] [address] MEAN CORPUSCULAR HGB CONC 33.1 g/dl Normal 33.0-37.0 [facility] Comment on above: Performed By: #### L ABASE, CMP, PT, CBCD, APTT #### [facility] [address] [place] [address] #### ALB SO #### [facility] [address] [place] [address] Monocytes (Bld) [#/Vol] 0.5 10*3/uL Normal 0.1-1.0 [facility] Comment on above: Performed By: #### L ABASE, CMP, PT, CBCD, APTT #### [facility] [address] [place] [address] #### ALB SO #### [facility] [address] [place] [address] Monocytes/100 WBC (Bld) 7.5 % Normal 3.0-9.0 E [facility] Comment on above: Performed By: #### L ABASE, CMP, PT, CBCD, APTT #### [facility] [address] [place] [address] #### ALB SO #### [facility] [address] [place] [address] Neutrophils (Bld) [#/Vol] 4.8 10*3/uL Normal 2.3-7.9 [facility] Comment on above: Performed By: #### L ABASE, CMP, PT, CBCD, APTT #### [facility] [address] [place] [address] #### ALB SO #### [facility] [address] [place] [address] Neutrophils/100 WBC (Bld) 71.0 % Normal 47.0-73.0 [facility] Comment on above: Performed By: #### L ABASE, CMP, PT, CBCD, APTT #### [facility] [address] [place] [address] #### ALB SO #### [facility] [address] [place] [address] NUCLEATED RED BLOOD CELL 0.0 10*3/uL Normal 0.0-0.0 [facility] Comment on above: Performed By: #### L ABASE, CMP, PT, CBCD, APTT #### [facility] [address] [place] [address] #### ALB SO #### [facility] [address] [place] [address] NUCLEATED RED BLOOD CELL 0.0 % Normal 0.0-0.0 [facility] Comment on above: Performed By: #### L ABASE, CMP, PT, CBCD, APTT #### [facility] [address] [place] [address] #### ALB SO #### [facility] [address] [place] [address] PLATELET COUNT AUTOMATED 120 10*3/uL Low 130-400 [facility] Comment on above: Performed By: #### L ABASE, CMP, PT, CBCD, APTT #### [facility] [address] [place] [address] #### ALB SO #### [facility] [address] Platelet mean volume (Bld) [Entitic vol] 8.9 fL Low 9.6-12.3 [facility] Comment on above: Performed By: #### L ABASE, CMP, PT, CBCD, APTT #### [facility] [address] [place] [address] #### ALB SO #### [facility] [address] [place] [address] RBC (Bld) [#/Vol] 4.85 10*6/uL Normal 4.50-5.90 [facility] Comment on above: Performed By: #### L ABASE, CMP, PT, CBCD, APTT #### [facility] [address] [place] [address] #### ALB SO #### [facility] [address] [place] [address] RED CELL DISTRI WIDTH 15.2 % High 0-14.5 [facility] Comment on above: Performed By: #### L ABASE, CMP, PT, CBCD, APTT #### [facility] [address] [place] [address] #### ALB SO #### [facility] [address] [place] [address] WBC (Bld) [#/Vol] 6.8 10*3/uL Normal 4.8-10.8 [facility] Comment on above: Performed By: #### L ABASE, CMP, PT, CBCD, APTT #### [facility] [address] [place] [address] #### ALB SO #### [facility] [address] [place] [address] COMPREHENSIVE METABOLIC PANE Nolan 07-02-2021 ALBUMIN. ND Normal [facility] Comment on above: Result Comment: See send out ALBUMIN from [facility]. Performed By: #### L ABASE, CMP, PT, CBCD, APTT #### [facility] [address] [place] [address] #### ALB SO #### [facility] [address] [place] [address] ALP [Catalytic activity/Vol] 92 U/L Normal 45-117 [facility] Comment on above: Performed By: #### L ABASE, CMP, PT, CBCD, APTT #### [facility] [address] [place] [address] #### ALB SO #### [facility] [address] [place] [address] ALT [Catalytic activity/Vol] 34 U/L Normal 12-78 [facility] Comment on above: Performed By: #### L ABASE, CMP, PT, CBCD, APTT #### [facility] [address] [place] [address] #### ALB SO #### [facility] [address] [place] [address] AST [Catalytic activity/Vol] 21 U/L Normal 3-35 [facility] Comment on above: Performed By: #### L ABASE, CMP, PT, CBCD, APTT #### [facility] [address] [place] [address] #### ALB SO #### [facility] [address] [place] [address] Bilirubin [Mass/Vol] 0.8 mg/dL Normal 0.2-1.0 [facility] Comment on above: Performed By: #### L ABASE, CMP, PT, CBCD, APTT #### [facility] [address] [place] [address] #### ALB SO #### [facility] [address] [place] [address] Calcium [Mass/Vol] 9.0 mg/dL Normal 8.5-10.5 [facility] Comment on above: Performed By: #### L ABASE, CMP, PT, CBCD, APTT #### [facility] [address] [place] [address] #### ALB SO #### [facility] [address] [place] [address] Chloride [Moles/Vol] 103 mmol/L Normal 98-107 [facility] Comment on above: Performed By: #### L ABASE, CMP, PT, CBCD, APTT #### [facility] [address] [place] [address] #### ALB SO #### [facility] [address] [place] [address] CO2 [Moles/Vol] 27 mmol/L Normal 21-32 [facility] Comment on above: Performed By: #### L ABASE, CMP, PT, CBCD, APTT #### [facility] [address] [place] [address] #### ALB SO #### [facility] [address] [place] [address] Creatinine [Mass/Vol] 1.20 mg/dL Normal 0.70-1.30 [facility] Comment on above: Performed By: #### L ABASE, CMP, PT, CBCD, APTT #### [facility] [address] [place] [address] #### ALB SO #### [facility] [address] [place] [address] EST GLOM FILT > 60 Normal [facility] Comment on above: Result Comment: Result [...] L ABASE, CMP, PT, CBCD, APTT #### [facility] [address] [place] [address] #### ALB SO #### [facility] [address] [place] [address] ESTIMATED GLOM FILT RATE 60 mL/min/ Normal [facility] Comment on above: Performed By: #### L ABASE, CMP, PT, CBCD, APTT #### [facility] [address] [place] [address] #### ALB SO #### [facility] [address] [place] [address] Glucose [Mass/Vol] 198 mg/dL High 65-99 [facility] Comment on above: Performed By: #### L ABASE, CMP, PT, CBCD, APTT #### [facility] [address] [place] [address] #### ALB SO #### [facility] [address] [place] [address] Potassium [Moles/Vol] 3.9 mmol/L Normal 3.5-5.1 [facility] Comment on above: Performed By: #### L ABASE, CMP, PT, CBCD, APTT #### [facility] [address] [place] [address] #### ALB SO #### [facility] [address] [place] [address] Protein [Mass/Vol] 7.4 g/dL Normal 6.4-8.2 [facility] Comment on above: Performed By: #### L ABASE, CMP, PT, CBCD, APTT #### [facility] [address] [place] [address] #### ALB SO #### [facility] [address] [place] [address] Sodium [Moles/Vol] 135 mmol/L Low 136-145 [facility] Comment on above: Performed By: #### L ABASE, CMP, PT, CBCD, APTT #### [facility] [address] [place] [address] #### ALB SO #### [facility] [address] [place] [address] Urea nitrogen [Mass/Vol] 14 mg/dL Normal 7-24 [facility] Comment on above: Performed By: #### L ABASE, CMP, PT, CBCD, APTT #### [facility] [address] [place] [address] #### ALB SO #### [facility] [address] [place] [address] ELECTROCARDIOGRAM REPORTon 0 07-02-2021 Wood Machinist Report [place], [place] ELECTROCARDIOGRAM REPORT NAME: CHIQUITACHARLI Jagjit UNIT #: [id number] ROOM: 425 DOCTOR: NEENA KRUSE,TEGAN BIRTHDATE: [birth year] [facility] Test Date: 2021-07-02 Test Time: 15:36:52 Pat Name: CHARLI PORRAS Department: Room: 425 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1950 Requested By: CRISS TORRES Order Number: [id number] Reading MD: Tegan Horton MD Measurements Intervals [place] Rate: 74 P: 43 DE: 169 QRS: -14 QRSD: 161 T: 98 QT: 463 QTc: 514 Interpretive Statements Sinus rhythm Left bundle branch block Electronically Signed On 07-02-2021 15:54:22 PST by Tegan Horton MD CM:EKGRPT:ELECTROCARDI OGRAM REPORT [id number] 1554 CRISS TORRES MD Normal [facility] ESR (Sed Rate)on 07-02-2021 ESR (Bld) [Velocity] 31 mm/h High 0-20 [facility] Comment on above: Performed By: #### B MP, CBCD #### [facility] [address] [place] [address] FOOT RIGHT (MIN 3 V)on 07-02 CRFOOTR Name: CHARLI PORRAS Phys: CRISS ESPINO MD : 1950 Age: 71 Sex: M Acct: [id number] Loc: 425 1 Exam Date: 07/02/2021 Status: ADM IN Radiology No: [id number] Unit No: [id number] EXAM# TYPE/EXAM RESULT [id number] EDRAD/FOOT RIGHT (MIN 3 V) SEE REPORT [...] : 1950 Age: 71 Sex: M Acct: [id number] Loc: 425 1 Exam Date: 07/02/2021 Status: ADM IN Radiology No: [id number] Unit No: [id number] EXAM# TYPE/EXAM RESULT [id number] EDRAD/FOOT RIGHT (MIN 3 V) SEE REPORT Signed by Yahaira Christianson MD REPORT SIGNED IN OTHER VENDOR SYSTEM 07/02/2021 Reported By: YAHAIRA CHRISTIANSON CC: ERICKA CASSIDY Technologist: MURIEL GAUTAM Transcribed Date/Time: 07/02/2021 (306) Kosher Sealer: LEEANNE Printed Date/Time: 07/02/2021 (395) PAGE 2 Signed Report Normal [facility] LA>2 RFLX FOLLOW UP AT 2 HRS on 07-02-2021 LA>2 RFLX FOLLOW UP AT 2 HRS 1.8 mmol/L Normal 0.4-2.0 [facility] Comment on above: Performed By: #### C OVID19 [id number] #### [facility] [address] [place] [address] LACTIC ACID BASELINEon 07-02 LACTIC ACID BASELINE 3.1 mmol/L Abnormal 0.4-2.0 [facility] Comment on above: Result Comment: VALUE IS A CRITICAL RESULT VERIFIED BY REPEAT ANALYSIS ON SAME SPECIMEN RESULT CALLED TO: TANISHA ANDERSON READ BACK RESULTS AND DATE OF OF [birth year] VERIFIED 07/02/21 1554 RENA CAMARILLO Performed By: #### B MP, CBCD #### [facility] [address] [place] [address] NT-proBNPon 07-02-2021 Natriuretic peptide B (Bld) [Mass/Vol] 209.00 pg/mL High 0-125 [facility] Comment on above: Result Comment: Using [...] consideration. . Performed By: #### C OVID19 [id number] #### [facility] [address] [place] [address] PROTHROMBIN TIMEon 2 INTERNATIONAL NORM RATIO 2.6 Normal 2.0-3.5 [facility] Comment on above: Result Comment: INR THERAPEUTIC RANGE: GROUP A 2.0-3.0 INR GROUP B 2.5-3.5 INR GROUP A SUGGESTED INDICATIONS: PROPHYLAXIS AND TREATMENT OF VENOUS THROMBOSIS TREATMENT OF PULMONARY EMBOLISM ATRIAL FIBRILLATION GROUP B SUGGESTED INDICATIONS: MECHANICAL PROSTHETIC VALVES Performed By: #### L ABASE, CMP, PT, CBCD, APTT #### [facility] [address] [place] [address] #### ALB SO #### [facility] [address] [place] [address] PT Coag (PPP) [Time] 24.3 s High 8.9-12.2 [facility] Comment on above: Performed By: #### L ABASE, CMP, PT, CBCD, APTT #### [facility] [address] [place] [address] #### ALB SO #### [facility] [address] [place] [address] TIBIA AND FIBULA RIGHT (2 V) on 07-02-2021 CRTIBFIR Name: CHARLI PORRAS Phys: CRISS ESPINO MD : 1950 Age: 71 Sex: M Acct: [id number] Loc: 425 1 Exam Date: 07/02/2021 Status: ADM IN Radiology No: [id number] Unit No: [id number] EXAM# TYPE/EXAM RESULT [id number] EDRAD/TIBIA AND FIBULA RIGHT (2 SEE REPORT [...] CASSIDY Technologist: MURIEL GAUTAM Transcribed Date/Time: 07/02/2021 (219) Kosher Sealer: LEEANNE Printed Date/Time: 07/02/2021 (4449) PAGE 1 Signed Report Normal [facility] US VENOUS LOWER EXTREMITY RT on 07-02-2021 USVENLER Name: CHARLI PORRAS Jagjit Phys: CRISS ESPNIO MD : 1950 Age: 71 Sex: M Acct: [id number] Loc: H2016 1 Exam Date: 07/02/2021 Status: ADM IN Radiology No: [id number] Unit No: [id number] EXAM# TYPE/EXAM RESULT [id number] US/US VENOUS LOWER EXTREMITY RT SEE REPORT [...] CASSIDY Technologist: ZULEMA WORTHY Transcribed Date/Time: 07/02/2021 (9364) Kosher Sealer: LEEANNE Printed Date/Time: 07/02/2021 (5659) PAGE 1 Signed Report Normal [facility] 06-26-2021 JEANNETTE Patient name: CHARLI PORRAS MR#: [id number] Date of Service: 06/26/21 Acc#: [id number] : 1950 Age: 71 Sex: M Dictated by: Maryan Tony MD Patient Name : CHARLI PORRAS (71yo, M) ID# [id number] Appt. Date/Time : 06/26/2021 07:45AM : 1950 Service Dept. : [facility] Provider : MARYAN TONY M.D. Insurance Med Primary: [facility] (MEDICARE REPLACEMENT/ADVANTAGE - HMO) Insurance # : [id number] Policy/Group # : [id number] Med Secondary: [facility] - [place]) Insurance # : [id number] Policy/Group # : [id number] Prescription: [facility] - Member is eligible. details Prescription: [facility] - Member is eligible. details Chief Complaint medication refill refill- tramadol and gabapentin; feet, legs and back pain Patient's Care Team Primary Care Provider: ERICKA CASSIDY MD: [address] [place] [address], , Referring Provider: SARAH FELIPEI: [address] [place] [address], Ph [phone], Other: CHARISSE VALENCIA MD: [address] [place] [address], , ax Patient's Pharmacies [facility] ERX): [id number] , [place] [address], Ph [phone], Vitals BP: 156/79 sitting L arm 06/26/2021 [...] DAY Date: 06/10/21 filled Source: ursula Name: bumetanide 1 mg tablet TAKE 1 TABLET BY MOUTH EVERY DAY NEEDED FOR LEGSWELLING Date: 06/10/21 filled Source: martharimartha Name: busPIRone 15 mg tablet TAKE ONE (1) TABLET BY MOUTH TWICE DAILY Date: 06/16/21 filled Source: ursula Name: Centrum Silver Men 300 mcg-600 mcg-300 mcg tablet Take 1 tablet(s) every ay by oral route. Date: 10/10/20 entered Source: Kerri Christensen Name: cloNIDine 0.2 mg/24 hr weekly transdermal patch APPLY 1 PATCH TOPICALLY EERY WEEK FOR ANXIETY Date: 06/10/21 filled Source: ursula Name: cloNIDine HCL 0.1 mg tablet TAKE 1 TABLET BY MOUTH TWICE DAILY NEEDED Date: 05/31/21 filled Source: ursula Name: diclofenac 1 % topical gel APPLY 2 GRAMS TOPICALLY TWICE DAILY TO AFFECTE AREA(S) Date: 11/13/20 filled Source: ursula Name: donepeziL 10 mg tablet TAKE 1 TABLET BY MOUTH EVERY DAY IN THE EVENING Date: 06/10/21 filled Source: ursula Name: doxazosin 2 mg tablet TAKE 1 TABLET BY MOUTH ONCE DAILY Date: 06/10/21 filled Source: martharipts Name: DULoxetine 60 mg capsule,delayed release TAKE 1 CAPSULE BY MOUTH EVERY DAY Date: 06/05/21 filled Source: josescripts Name: ezetimibe 10 mg tablet TAKE 1 TABLET BY MOUTH EVERY DAY Date: 06/10/21 filled Source: josescripts Name: FLUoxetine 40 mg capsule TAKE 1 CAPSULE BY MOUTH ONCE DAILY *EMERGENCY REILL* Date: 06/10/21 filled Source: martharipts Name: gabapentin 800 mg tablet TAKE 1 TABLET BY MOUTH THREE TIMES DAILY Date: 06/26/21 prescribed Source: Maryan Tony M.D. Name: glipiZIDE 5 mg tablet TAKE TWO (2) TABLETS BY MOUTH TWICE DAILY BEFORE MELS Date: 06/10/21 filled Source: josescripts Name: hydrOXYzine pamoate 50 mg capsule TAKE 1 CAPSULE BY MOUTH FOUR TIMES JILLIAN NEEDED *EMERGENCY REFILL* Date: 06/10/21 filled Source: martharipts Name: Januvia 25 mg tablet TAKE 1 TABLET BY MOUTH EVERY DAY Date: 06/10/21 filled Source: martharipts Name: Jardiance 25 mg tablet TAKE 1 TABLET BY MOUTH EVERY DAY IN THE MORNING Date: 06/10/21 filled Source: martharipts Name: pramipexole 0.125 mg tablet TAKE 1 TABLET BY MOUTH TWICE DAILY Date: 06/10/21 filled Source: josescripts Name: QUEtiapine 200 mg tablet TAKE 1 TABLET BY MOUTH AT BEDTIME Date: 06/18/21 filled Source: martharipts Name: QUEtiapine 50 mg tablet TAKE 1 [...] DAYS. *EMERGENCY REFILL* Date: 06/10/21 filled Source: martharipts Name: rivastigmine 9.5 mg/24 hour transdermal patch APPLY 1 PATCH TO SKIN ON (more content not included)... [facility] 05-22-2021 JEANNETTE Patient name: CHARLI PORRAS MR#: [id number] Date of Service: 05/22/21 Acc#: [id number] : 1950 Age: 71 Sex: M Dictated by: Maryan Tony MD Patient Name : CHARLI PORRAS (71yo, M) ID# [id number] Appt. Date/Time : 05/22/2021 01:15PM : 1950 Service Dept. : [facility]IN MANAGEMENT Provider : MARYAN TONY M.D. Insurance Med Primary: [facility] [facility] [place] (MEDICARE REPLACEMENT/ADVANTAGE - HMO) Insurance # : [id number] Policy/Group # : [id number] Med Secondary: [facility] - HMO) Insurance # : [id number] Policy/Group # : [id number] Prescription: [facility] - Member is eligible. details Prescription: [facility] - Member is eligible. details Chief Complaint *pain management refills; c/o pain shoulders, back legs - present states these last two weks pt has been in excruciating pain Patient's Care Team Primary Care Provider: ERICKA CASSIDY MD: [address] [place] [address], , Referring Provider: SARAH FELIPEI: [address] [place] [address], Ph [phone], Other: CHARISSE VALENCIA MD: [address] [place] [address], , ax Patient's Pharmacies [facility] (ERX): [id number] [address], Ph [phone], Vitals 05/22/2021 01:14 pm BP: Ht: 5 ft 10 in (177.8 cm) Pain Scale: 6 Allergies Allergies not reviewed (last reviewed 03/20/2021) NKDA Medications Reviewed Medications Name: allopurinoL 100 mg tablet TAKE 1 TABLET BY MOUTH EVERY DAY Date: 05/10/21 filled Source: martharimartha Name: atorvastatin 10 mg tablet TAKE 1 TABLET BY MOUTH EVERY DAY Date: 05/10/21 filled Source: martharipts Name: bumetanide 1 mg tablet TAKE 1 TABLET BY MOUTH EVERY DAY NEEDED FOR LEGSWELLING Date: 05/10/21 filled Source: josescripts Name: Centrum Silver Men 300 mcg-600 mcg-300 mcg tablet Take 1 tablet(s) every ay by oral route. Date: 10/10/20 entered Source: Kerri Christensen Name: cloNIDine HCL 0.1 mg tablet TAKE 1 TABLET BY MOUTH TWICE DAILY NEEDED Date: 05/08/21 filled Source: josescripts Name: diclofenac 1 % topical gel APPLY 2 GRAMS TOPICALLY TWICE DAILY TO AFFECTE AREA(S) Date: 11/13/20 filled Source: martharipts Name: donepeziL 10 mg tablet TAKE 1 TABLET BY MOUTH EVERY DAY IN THE EVENING Date: 05/10/21 filled Source: martharipts Name: doxazosin 2 mg tablet TAKE 1 TABLET BY MOUTH ONCE DAILY Date: 05/10/21 filled Source: martharipts Name: ezetimibe 10 mg tablet TAKE 1 TABLET BY MOUTH EVERY DAY Date: 05/10/21 filled Source: martharipts Name: gabapentin 800 mg tablet TAKE 1 TABLET BY MOUTH THREE TIMES A DAY Date: 05/22/21 prescribed Source: Maryan Tony M.D. Name: glipiZIDE 5 mg tablet TAKE TWO (2) TABLETS BY MOUTH TWICE DAILY BEFORE MELS Date: 05/10/21 filled Source: martharipts Name: Januvia 25 mg tablet TAKE 1 TABLET BY MOUTH EVERY DAY Date: 05/10/21 filled Source: martharipts Name: Jardiance 25 mg [...] transdermal route. Date: 05/22/21 entered Source: Anastasia Gemini Name: rivastigmine 4.6 mg/24 hour transdermal patch APPLY 1 PATCH TRANSDERMALLYONCE DAILY. DO NOT APPLY TO SAME AREA MORE THAN ONCE EVERY 14 DAYS. Date: 05/18/21 filled Source: josescripts Name: rivastigmine 9.5 mg/24 hour transdermal patch apply 1 (ONE) patch topicaly once daily do not apply to same area more than once every 14 days Date: 05/15/21 filled Source: surejorgeripts Name: SEROqueL 200 mg tablet Take 1 tablet(s) every day by oral route at bedtim. Date: 05/22/21 entered Source: Anastasia Gemini Name: Slow-Mag 71.5 mg tablet,delayed release Take [...] mellitus - Onse (more content not included)... [facility] 03-20-2021 CANTON Patient name: CHARLI PORRAS MR#: [id number] Date of Service: 03/20/21 Acc#: [id number] : 1950 Age: 70 Sex: M Dictated by: Maryan Tony MD Patient Name : CHARLI PORRAS (70yo, M) ID# [id number] Appt. Date/Time : 03/20/2021 01:15PM : 1950 Service Dept. : [facility]IN MANAGEMENT Provider : MARYAN TONY M.D. Insurance Med Primary: [facility] (MEDICARE REPLACEMENT/ADVANTAGE - HMO) Insurance # : [id number] Policy/Group # : [id number] Med Secondary: [facility] - HMO) Insurance # : [id number] Policy/Group # : [id number] Prescription: [facility] - Member is eligible. details Prescription: [facility] - Member is eligible. details Chief Complaint *pain management REFILL Patient's Care Team Primary Care Provider: ERICKA CASSIDY MD: [address] [place] [address], , Referring Provider: SARAH FELIPEI: [address] [place] [address], Ph [phone], Other: CHARISSE VALENCIA MD: [address] [place] [address], , ax Patient's Pharmacies [facility] (ERX): [address] [address], Ph [phone], Vitals BP: 160/79 03/20/2021 01:25 pm Ht: 5 ft 10 in (177.8 cm) 03/20/2021 01:18 pm O2Sat: 95% 03/20/2021 01:25 pm Pulse: 85 bpm 03/20/2021 01:25 pm RR: 20 03/20/2021 01:25 pm Pain Scale: 7 03/20/2021 01:25 pm Allergies Reviewed Allergies NKDA Medications Reviewed Medications Name: allopurinoL 100 mg tablet TAKE 1 TABLET BY MOUTH EVERY DAY Date: 03/13/21 filled Source: surescripts Name: atorvastatin 10 mg tablet TAKE 1 TABLET BY MOUTH EVERY DAY Date: 03/13/21 filled Source: martharipts Name: bumetanide 1 mg tablet TAKE 1 TABLET BY MOUTH EVERY DAY NEEDED FOR LEGSWELLING Date: 03/08/21 filled Source: martharipts Name: busPIRone 15 mg [...] AREA(S) Date: 11/13/20 filled Source: martharipts Name: doxazosin 2 mg tablet TAKE 1 TABLET BY MOUTH ONCE DAILY Date: 03/18/21 filled Source: martharipts Name: DULoxetine 60 mg capsule,delayed release TAKE ONE (1) CAPSULE BY MOUTH Date: 03/13/21 filled Source: martharipts Name: ezetimibe 10 mg tablet TAKE 1 TABLET BY MOUTH EVERY DAY Date: 03/13/21 filled Source: martharipts Name: gabapentin 800 mg tablet TAKE 1 TABLET BY MOUTH TWICE DAILY Date: 01/23/21 filled Source: martharipts Name: glipiZIDE 5 mg tablet TAKE TWO (2) TABLETS BY MOUTH TWICE DAILY BEFORE MELS Date: 03/13/21 filled Source: martharipts Name: Januvia 25 mg tablet TAKE 1 TABLET BY MOUTH EVERY DAY Date: 03/13/21 filled Source: martharipts Name: Jardiance 25 mg [...] MOUTH EVERY EVENING Date: 03/04/21 filled Source: ursula Name: Slow-Mag 71.5 mg tablet,delayed release Take 2 tablet(s) twice a day by oal route for 30 days. Date: 03/19/20 filled Source: ursula Name: tiZANidine 4 mg tablet TAKE 1 TABLET BY MOUTH AT BEDTIME Date: 03/13/21 filled Source: martharimartha Name: traMADoL 50 mg tablet TAKE 1 TABLET BY MOUTH FOUR TIMES DAILY NEEDED FR PAIN Date: 03/20/21 prescribed Source: Maryan Tony M.D. Name: traZODone 150 mg tablet TAKE 1 TABLET BY MOUTH EVERY DAY Date: 03/13/21 filled Source: martharimartha Name: warfarin 5 mg tablet TAKE 1 [...] - Cer (more content not included)... Normal [facility] .Auto Diffon 07-16-2020 Ammonia (P) [Mass/Vol] 0.60 10 3/mcL Normal 0.09-1.40 [facility] ([place]) Comment on above: Performed By: #### C BC, ADIFF, ANEU, BMP, GFR, TROPHS #### [address] [address] Basophils (Bld) [#/Vol] 0.10 10 3/mcL Normal 0.00-0.27 [facility] ([place]) Comment on above: Performed By: #### C BC, ADIFF, ANEU, BMP, GFR, TROPHS #### [address] [address] Basophils/100 WBC (Bld) 1.0 % Normal 0.0-2.5 [facility] ([place]) Comment on above: Performed By: #### C BC, ADIFF, ANEU, BMP, GFR, TROPHS #### [address] [address] Eosinophils (Bld) [#/Vol] 0.20 10 3/mcL Normal 0.00-0.65 [facility] ([place]) Comment on above: Performed By: #### C BC, ADIFF, ANEU, BMP, GFR, TROPHS #### [address] [address] Eosinophils/100 WBC (Bld) 2.5 % Normal 0.0-6.0 [facility] ([place]) Comment on above: Performed By: #### C BC, ADIFF, ANEU, BMP, GFR, TROPHS #### [address] [address] Lymphocytes (Bld) [#/Vol] 1.60 10 3/mcL Normal 0.90-4.32 [facility] ([place]) Comment on above: Performed By: #### C BC, ADIFF, ANEU, BMP, GFR, TROPHS #### [address] [address] Lymphocytes/100 WBC (Bld) 21.0 % Normal 20.0-40.0 [facility] ([place]) Comment on above: Performed By: #### C BC, ADIFF, ANEU, BMP, GFR, TROPHS #### [address] [address] Monocytes/100 WBC (Bld) 7.6 % Normal 2.0-13.0 [facility] ([place]) Comment on above: Performed By: #### C BC, ADIFF, ANEU, BMP, GFR, TROPHS #### [address] [address] Neutrophils/100 WBC (Bld) 67.9 % Normal 50.0-75.0 [facility] ([place]) Comment on above: Performed By: #### C BC, ADIFF, ANEU, BMP, GFR, TROPHS #### [address] [address] .GFRon 07-16-2020 GFR >60 Normal [facility] ([place]) Comment on above: Result Comment: GFR Population [...] BC, ADIFF, ANEU, BMP, GFR, TROPHS #### [address] [address] GFR Non- 57 ml/min/1.73sqm Normal [facility] ([place]) Comment on above: Result Comment: GFR Population [...] BC, ADIFF, ANEU, BMP, GFR, TROPHS #### [address] [address] .NEUABSon 07-16-2020 Neutrophils (Bld) [#/Vol] 5.20 10 3/mcL Normal 2.25-8.10 [facility] ([place]) Comment on above: Performed By: #### C BC, ADIFF, ANEU, BMP, GFR, TROPHS #### [address] [address] BMPon 07-16-2020 Calcium [Mass/Vol] 9.0 mg/dL Normal 8.4-10.1 [facility] ([place]) Comment on above: Result Comment: No te - New Reference Range in effect 19 Performed By: #### C BC, ADIFF, ANEU, BMP, GFR, TROPHS #### [address] [address] Chloride [Moles/Vol] 101 mmol/L Normal 98-110 [facility] ([place]) Comment on above: Performed By: #### C BC, ADIFF, ANEU, BMP, GFR, TROPHS #### [address] [address] CO2 [Moles/Vol] 24 mmol/L Normal 22-32 [facility] ([place]) Comment on above: Performed By: #### C BC, ADIFF, ANEU, BMP, GFR, TROPHS #### [address] [address] Creatinine [Mass/Vol] 1.24 mg/dL Normal 0.60-1.40 [facility] ([place]) Comment on above: Performed By: #### C BC, ADIFF, ANEU, BMP, GFR, TROPHS #### [address] [address] Electrolyte Balance 9.0 mEq/L Normal 4.0-15.0 [facility] ([place]) Comment on above: Performed By: #### C BC, ADIFF, ANEU, BMP, GFR, TROPHS #### [address] [address] Glucose [Mass/Vol] 253 mg/dL High 82-115 [facility] ([place]) Comment on above: Performed By: #### C BC, ADIFF, ANEU, BMP, GFR, TROPHS #### [address] [address] Potassium [Moles/Vol] 4.1 mmol/L Normal 3.5-5.0 [facility] ([place]) Comment on above: Performed By: #### C BC, ADIFF, ANEU, BMP, GFR, TROPHS #### [place] [id number] Sodium [Moles/Vol] 134 mmol/L Low 136-145 [facility] ([place]) Comment on above: Performed By: #### C BC, ADIFF, ANEU, BMP, GFR, TROPHS #### [place] [id number] Urea nitrogen [Mass/Vol] 26.0 mg/dL High 8.0-22.0 [facility] ([place]) Comment on above: Performed By: #### C BC, ADIFF, ANEU, BMP, GFR, TROPHS #### [place] [id number] Urea nitrogen/Creatinine [Mass ratio] 21.0 ratio Normal 10.0-22.0 [facility] ([place]) Comment on above: Performed By: #### C BC, ADIFF, ANEU, BMP, GFR, TROPHS #### [place] [id number] CBCon 07-16-2020 Erythrocyte distribution width (RBC) [Ratio] 14.7 % Normal 11.5-15.5 [facility] ([place]) Comment on above: Performed By: #### C BC, ADIFF, ANEU, BMP, GFR, TROPHS #### [place] [address] Hematocrit (Bld) [Volume fraction] 44.5 % Normal 40.0-52.0 [facility] ([place]) Comment on above: Performed By: #### C BC, ADIFF, ANEU, BMP, GFR, TROPHS #### [place] [id number] Hemoglobin (Bld) [Mass/Vol] 15.2 G/dL Normal 13.0-17.5 [facility] ([place]) Comment on above: Performed By: #### C BC, ADIFF, ANEU, BMP, GFR, TROPHS #### [place] [address] MCH (RBC) [Entitic mass] 30.4 pg Normal 27.0-33.0 [facility] ([place]) Comment on above: Performed By: #### C BC, ADIFF, ANEU, BMP, GFR, TROPHS #### [place] [id number] MCHC (RBC) [Mass/Vol] 34.1 G/dL Normal 32.0-36.0 [facility] ([place]) Comment on above: Performed By: #### C BC, ADIFF, ANEU, BMP, GFR, TROPHS #### [place] [id number] MCV (RBC) [Entitic vol] 89.3 fL Normal 81.0-100.0 [facility] ([place]) Comment on above: Performed By: #### C BC, ADIFF, ANEU, BMP, GFR, TROPHS #### [place] [id number] Platelet mean volume (Bld) [Entitic vol] 7.6 fL Normal 6.4-10.5 [facility] ([place]) Comment on above: Performed By: #### C BC, ADIFF, ANEU, BMP, GFR, TROPHS #### [place] [id number] Platelets (Bld) [#/Vol] 132 10 3/mcL Low 150-450 [facility] ([place]) Comment on above: Performed By: #### C BC, ADIFF, ANEU, BMP, GFR, TROPHS #### [place] [id number] RBC (Bld) [#/Vol] 4.99 10 6/mcL Normal 4.50-6.00 [facility] ([place]) Comment on above: Performed By: #### C BC, ADIFF, ANEU, BMP, GFR, TROPHS #### [place] [id number] WBC (Bld) [#/Vol] 7.70 10 3/mcL Normal 4.50-10.80 [facility] ([place]) Comment on above: Performed By: #### C BC, ADIFF, ANEU, BMP, GFR, TROPHS #### [place] [id number] CT HEAD OR BRAIN W/O CONTRAS Ton [...] Date: 07/16/2020 9:32:33 PM Ordering Provider:Gayla Greenberg [facility] ([place]) PROon 07-16-2020 INR Coag (PPP) [Relative time] 1.6 {INR} Normal [facility] ([place]) Comment on above: Result Comment: [employer] [place] [employer] (CHEST, 1991, 102:312S-25S) recommended therapeutic range for oral anticoagulant therapy is: LOW RISK: Prophylaxis of venous thrombosis INR: 2.0-3.0 Treatment of pulmonary embolism 2.0-3.0 Prevention of systemic embolism 2.0-3.0 HIGH RISK: Mechanical prosthetic valves 2.5-3.5 Performed By: #### P RO #### [address] [address] PT Coag (PPP) [Time] 19.0 s High 9.0-14.8 [facility] ([place]) Comment on above: Result Comment: Effe ctive 11/16/07, Protime results may be affected by some antibiotics (i.e. Ciprofloxacin, Azithromycin, Bactrim) which may potentiate the action of oral anticoagulants, with further increases in Protime/INR. Performed By: #### P RO #### [place] [id number] TROPHSon 07-16-2020 Troponin I High Sensitivity 7.91 ng/L Normal 0.00-54.00 [facility] ([place]) Comment on above: Performed By: #### C BC, ADIFF, ANEU, BMP, GFR, TROPHS #### [place] [id number] UAon 07-16-2020 Color (U) Yellow Normal [facility] ([place]) Comment on above: Performed By: #### U A #### [place] [address] Glucose (U) [Mass/Vol] mg/dL Abnormal Negative [facility] ([place]) Comment on above: Performed By: #### U A #### [place] [address] Ketones Ql (U) Negative Normal Neg-Trace [facility] ([place]) Comment on above: Performed By: #### U A #### [place] [address] UA Appear Clear Normal [facility] ([place]) Comment on above: Performed By: #### U A #### [place] [id number] UA Blood Negative Normal Neg-Trace [facility] ([place]) Comment on above: Performed By: #### U A #### [place] [address] UA Leuk Est Negative Normal Negative [facility] ([place]) Comment on above: Performed By: #### U A #### [place] [id number] UA Nitrite Negative Normal Negative [facility] ([place]) Comment on above: Performed By: #### U A #### [place] [id number] UA pH 5.5 Normal 5.0 - 8.0 [facility] ([place]) Comment on above: Performed By: #### U A #### [address] [address] UA Protein Negative Normal Negative [facility] ([place]) Comment on above: Performed By: #### U A #### [address] [address] UA Spec Grav 1.010 Abnormal [facility] ([place]) Comment on above: Performed By: #### U A #### [address] [address] UA Specimen Type Clean Catch Normal [facility] ([place]) Comment on above: Performed By: #### U A #### [place] [id number] UA Urobilinogen 1.0 E.U./dL Normal [facility] ([place]) Comment on above: Performed By: #### U A #### [place] [address] Urobilinogen Qn (U) Negative Normal Neg-Trace [facility] ([place]) Comment on above: Performed By: #### U A #### [place] [address] XR CHEST 1 VIEWon 07-16-2020 XR CHEST [...] Sign Date: 07/16/2020 8:13:33 PM Ordering Provider:Gayla Carlisle [facility] ([place]) CR Knee 1 or 2 Views Lefton 10-07-2018 CR Knee 1 or 2 Views Left Patient Name: CHARLI PORRAS Diagnostic Radiology Exam Date/Time 10/07/2018 10:08:00 EDT Exam CR Knee 1 or 2 Views Left Ordering Physician FERNY GARCIA NICHOLAS A Accession Number [id number] CPT4 Codes 54117 () Reason For Exam PAIN Report BILATERAL KNEES LEFT KNEE SERIES CLINICAL INDICATION: Left knee arthroplasty follow-up, pain A standing AP view of the bilateral knees was performed. [place] and lateral plain film views of the [...] Transcribed Date and Time: 10/07/2018 4:28 Normal [facility] CR Knee Standing Bilateralon 10-07-2018 CR Knee Standing Bilateral Patient Name: CHARLI PORRAS Diagnostic Radiology Exam Date/Time 10/07/2018 10:08:00 EDT Exam CR Knee Standing AP Bilateral Ordering Physician FERNY GARCIA NICHOLAS A Accession Number [id number] CPT4 Codes 24450 () Reason For Exam PAIN Report BILATERAL KNEES LEFT KNEE SERIES CLINICAL INDICATION: Left knee arthroplasty follow-up, pain A standing AP view of the bilateral knees was performed. [place] and lateral plain film views of the [...] Transcribed Date and Time: 10/07/2018 4:28 Normal [facility] CR Knee 1 or 2 Views Lefton 09-02-2018 CR Knee 1 or 2 Views Left Patient Name: CHARLI PORRAS Diagnostic Radiology Exam Date/Time 09/02/2018 09:44:56 EDT Exam CR Knee 1 or 2 Views Left Ordering Physician MD GILLILAND KIEL JOHASEN Accession Number [id number] CPT4 Codes 52880 () Reason For Exam pain Report CLINICAL [...] knee arthroplasty revision. Report Dictated on Workstation: [id number] Final Dictating Physician: MD ALFREDO JEFFREY Signed Date and Time: 09/02/2018 1:21 pm Signed by: MD ALFREDO JEFFREY Transcribed Date and Time: 09/02/2018 1:22 Normal [facility] CR Knee Standing Bilateralon 09-02-2018 CR Knee Standing Bilateral Patient Name: CHARLI PORRAS Diagnostic Radiology Exam Date/Time 09/02/2018 09:44:56 EDT Exam CR Knee Standing AP Bilateral Ordering Physician MD LESLIE, SOHAN MEDINA Accession Number [id number] CPT4 Codes 25487 () Reason For Exam pain Report CLINICAL [...] knee arthroplasty revision. Report Dictated on Workstation: [id number] Final Dictating Physician: MD ALFREDO JEFFREY Signed Date and Time: 09/02/2018 1:21 pm Signed by: MD ALFREDO JEFFREY Transcribed Date and Time: 09/02/2018 1:22 Normal [facility] CULTURE ANAEROBEon 9 CULTURE ANAEROBE CULTURE ANAEROBE --> Status: F No growth of anaerobes at 5 days. Normal [facility] Comment on above: Performed By: #### T SGL #### [facility] [address] [place] [address] Order Comment: Speci men collected in O.R. CULTURE ANAEROBE CULTURE ANAEROBE --> Status: F No growth of anaerobes at 5 days. Normal [facility] Comment on above: Performed By: #### T SGL #### [facility] [address] [place] [address] Basic Metabolic Panelon 08-02 Calcium [Mass/Vol] 8.8 mg/dL Normal 8.4-10.4 [facility] Comment on above: Performed By: #### H EMOG, BMP3 ####[facility] [place] [address] Glucose [Mass/Vol] 211 mg/dL High 70-100 [facility] Comment on above: Performed By: #### H EMOG, BMP3 ####[facility] [place] [address] Urea nitrogen [Mass/Vol] 32 mg/dL High 7-20 [facility] Comment on above: Performed By: #### H EMOG, BMP3 ####[email or web address] [id number] [place] [address] Anion gap [Moles/Vol] 5 Normal [facility] Comment on above: Performed By: #### H EMOG, BMP3 ####[facility] [address] [place] [address] CO2 [Moles/Vol] 33 mmol/L High 22-30 [facility] Comment on above: Performed By: #### H EMOG, BMP3 ####[facility] [address] [place] [address] Creatinine [Mass/Vol] 1.40 mg/dL High 0.52-1.25 [facility] Comment on above: Performed By: #### H EMOG, BMP3 ####[facility] [id number] [place] [address] GFR/1.73 sq M predicted among blacks MDRD (S/P/Bld) [Vol rate/Area] mL/min/{1.73_m2} Normal >60 [facility] Comment on above: Performed By: #### H SULMA, BMP3 ####[facility] [address] [place] [address] GFR/1.73 sq M predicted among non-blacks MDRD (S/P/Bld) [Vol rate/Area] 50.2 mL/min/{1.73_m2} Normal >60 [facility] Comment on above: Result Comment: Sour ce- MDRD equation with creatinine calibration to IDMS(NKDEP) eGFR not recommended for drug dose adjustment Performed By: #### H EMOG, BMP3 ####[facility] [id number] [place] [address] Potassium [Moles/Vol] 3.9 mmol/L Normal 3.5-5.1 [facility] Comment on above: Performed By: #### H EMOG, BMP3 ####[email or web address] [id number] [place] [address] Chloride [Moles/Vol] 96 mmol/L Low 98-107 [facility] Comment on above: Performed By: #### H EMOAbdulkadir, BMP3 ####[place] [address] [place] [address] Sodium [Moles/Vol] 134 mmol/L Low 135-145 [facility] Comment on above: Performed By: #### H SULMA BMP3 ####[place] [address] [place] [address] Glucose,Bedsideon 08-19-2018 Glucose [Mass/Vol] 331 mg/dL High 70-100 [facility] Comment on above: Result Comment: Test performed by glucose meter. Results may be 10%-15% lower than serum/plasma values. (CLIA ID [id number]) Performed By: #### B GLU ####[place] [address] [place] [address] Glucose [Mass/Vol] 255 mg/dL High 70-100 [facility] Comment on above: Result Comment: Test performed by glucose meter. Results may be 10%-15% lower than serum/plasma values. (CLIA ID [id number]) Performed By: #### B GLU ####[place] [address] [place] [address] Hemogramon 08-19-2018 Erythrocyte distribution width (RBC) [Ratio] 14.5 % Normal 11.5-14.5 [facility] Comment on above: Performed By: #### H SULMA BMP3 ####[place] [address] [place] [address] Hematocrit (Bld) [Volume fraction] 32.2 % Low 40.0-52.0 [facility] Comment on above: Performed By: #### H SULMA BMP3 ####[place] [address] [place] [address] Hemoglobin (Bld) [Mass/Vol] 11.1 g/dL Low 13.0-18.0 [facility] Comment on above: Performed By: #### H SULMA BMP3 ####[place] [address] [place] [address] MCH (RBC) [Entitic mass] 30.7 pg Normal 26.0-34.0 [facility] Comment on above: Performed By: #### H EMOG, BMP3 ####[facility] [place] [address] MCHC (RBC) [Mass/Vol] 34.5 % Normal 32.0-36.0 [facility] Comment on above: Performed By: #### H EMOG, BMP3 ####[facility] [place] [address] MCV (RBC) [Entitic vol] 89.0 fL Normal 80.0-98.0 [facility] Comment on above: Performed By: #### H EMOG, BMP3 ####[facility] [place] [address] Platelet mean volume (Bld) [Entitic vol] 7.1 fL Low 7.4-10.4 [facility] Comment on above: Performed By: #### H EMOG, BMP3 ####[place] [address] [place] [address] Platelets (Bld) [#/Vol] 130 10*3/uL Low 140-440 [facility] Comment on above: Performed By: #### H EMOAbdulkadir, BMP3 ####[facility] [place] [address] RBC (Bld) [#/Vol] 3.62 10*6/uL Low 4.40-5.90 [facility] Comment on above: Performed By: #### H EMOG, BMP3 ####[facility] [place] [address] WBC (Bld) [#/Vol] 6.6 10*3/uL Normal 3.6-10.7 [facility] Comment on above: Performed By: #### H EMOG, BMP3 ####[facility] [id number] [place] [address] Basic Metabolic Panelon 08-02 Calcium [Mass/Vol] 8.8 mg/dL Normal 8.4-10.4 [facility] Comment on above: Performed By: #### T SGL #### [facility] [address] [place] [address] Glucose [Mass/Vol] 229 mg/dL High 70-100 [facility] Comment on above: Performed By: #### T SGL #### [facility] [address] [place] [address] Anion gap [Moles/Vol] 6 Normal [facility] Comment on above: Performed By: #### T SGL #### [facility] [address] [place] [address] CO2 [Moles/Vol] 32 mmol/L High 22-[address] [facility] Comment on above: Performed By: #### T SGL #### [facility] [address] [place] [address] Creatinine [Mass/Vol] 1.48 mg/dL High 0.52-1.25 [facility] Comment on above: Performed By: #### T SGL #### [facility] [address] [place] [address] GFR/1.73 sq M predicted among blacks MDRD (S/P/Bld) [Vol rate/Area] 57.1 mL/min/{1.73_m2} Normal >60 [facility] Comment on above: Performed By: #### T SGL #### [facility] [address] [place] [address] GFR/1.73 sq M predicted among non-blacks MDRD (S/P/Bld) [Vol rate/Area] 47.1 mL/min/{1.73_m2} Normal >60 [facility] Comment on above: Result Comment: Sour ce- MDRD equation with creatinine calibration to IDMS(NKDEP) eGFR not recommended for drug dose adjustment Performed By: #### T SGL #### [facility] [address] [place] [address] Urea nitrogen [Mass/Vol] 39 mg/dL High 7-20 [facility] Comment on above: Performed By: #### T SGL #### [facility] [address] [place] [address] Chloride [Moles/Vol] 99 mmol/L Normal 98-107 [facility] Comment on above: Performed By: #### T SGL #### [facility] [address] [place] [address] Potassium [Moles/Vol] 4.1 mmol/L Normal 3.5-5.1 [facility] Comment on above: Performed By: #### T SGL #### [facility] [address] [place] [address] Sodium [Moles/Vol] 136 mmol/L Normal 135-145 [facility] Comment on above: Performed By: #### T SGL #### [facility] [address] [place] [address] Glucose,Bedsideon 08-18-2018 Glucose [Mass/Vol] 214 mg/dL High 70-100 [facility] Comment on above: Result Comment: Test performed by glucose meter. Results may be 10%-15% lower than serum/plasma values. (CLIA ID [id number]) Performed By: #### B GLU ####[facility] [place] [address] Glucose [Mass/Vol] 286 mg/dL High 70-100 [facility] Comment on above: Result Comment: Test performed by glucose meter. Results may be 10%-15% lower than serum/plasma values. (CLIA ID [id number]) Performed By: #### B GLU ####[facility] [place] [address] Glucose [Mass/Vol] 285 mg/dL High 70-100 [facility] Comment on above: Result Comment: Test performed by glucose meter. Results may be 10%-15% lower than serum/plasma values. (CLIA ID [id number]) Performed By: #### B GLU ####[facility] [place] [address] Glucose [Mass/Vol] 251 mg/dL High 70-100 [facility] Comment on above: Result Comment: Test performed by glucose meter. Results may be 10%-15% lower than serum/plasma values. (CLIA ID [id number]) Performed By: #### T SGL #### [facility] [address] [place] [address] Hemogramon 08-18-2018 Erythrocyte distribution width (RBC) [Ratio] 14.6 % High 11.5-14.5 [facility] Comment on above: Performed By: #### T SGL #### [facility] [address] [place] [address] Hematocrit (Bld) [Volume fraction] 33.6 % Low 40.0-52.0 [facility] Comment on above: Performed By: #### T SGL #### [facility] [address] [place] [address] Hemoglobin (Bld) [Mass/Vol] 11.4 g/dL Low 13.0-18.0 [facility] Comment on above: Performed By: #### T SGL #### [facility] [address] [place] [address] MCH (RBC) [Entitic mass] 30.6 pg Normal 26.0-34.0 [facility] Comment on above: Performed By: #### T SGL #### [place] [address] [place] [address] MCHC (RBC) [Mass/Vol] 34.0 % Normal 32.0-36.0 [facility] Comment on above: Performed By: #### T SGL #### [place] [address] [place] [address] MCV (RBC) [Entitic vol] 90.0 fL Normal 80.0-98.0 [facility] Comment on above: Performed By: #### T SGL #### [place] [address] [place] [address] Platelet mean volume (Bld) [Entitic vol] 7.5 fL Normal 7.4-10.4 [facility] Comment on above: Performed By: #### T SGL #### [facility] [address] [place] [address] Platelets (Bld) [#/Vol] 129 10*3/uL Low 140-440 [facility] Comment on above: Performed By: #### T SGL #### [facility] [address] [place] [address] RBC (Bld) [#/Vol] 3.73 10*6/uL Low 4.40-5.90 [facility] Comment on above: Performed By: #### T SGL #### [place] [address] [place] [address] WBC (Bld) [#/Vol] 8.4 10*3/uL Normal 3.6-10.7 [facility] Comment on above: Performed By: #### T SGL #### [facility] [address] [place] [address] Basic Metabolic Panelon 08-02 Anion gap [Moles/Vol] 7 Normal [facility] Comment on above: Performed By: #### P T #### [facility] [address] [place] [address] Calcium [Mass/Vol] 9.0 mg/dL Normal 8.4-10.4 [facility] Comment on above: Performed By: #### P T #### [facility] [address] [place] [address] CO2 [Moles/Vol] 26 mmol/L Normal 22-30 [facility] Comment on above: Performed By: #### P T #### [facility] [address] [place] [address] Creatinine [Mass/Vol] 1.64 mg/dL High 0.52-1.25 [facility] Comment on above: Performed By: #### P T #### [facility] [address] [place] [address] GFR/1.73 sq M predicted among blacks MDRD (S/P/Bld) [Vol rate/Area] 50.7 mL/min/{1.73_m2} Normal >60 [facility] Comment on above: Performed By: #### P T #### [facility] [address] [place] [address] GFR/1.73 sq M predicted among non-blacks MDRD (S/P/Bld) [Vol rate/Area] 41.8 mL/min/{1.73_m2} Normal >60 [facility] Comment on above: Result Comment: Sour ce- MDRD equation with creatinine calibration to IDMS(NKDEP) eGFR not recommended for drug dose adjustment Performed By: #### P T #### [facility] [address] [place] [address] Glucose [Mass/Vol] 329 mg/dL High 70-100 [facility] Comment on above: Performed By: #### P T #### [facility] [address] [place] [address] Urea nitrogen [Mass/Vol] 32 mg/dL High 7-20 [facility] Comment on above: Performed By: #### P T #### [facility] [address] [place] [address] Chloride [Moles/Vol] 99 mmol/L Normal 98-107 [facility] Comment on above: Performed By: #### P T #### [facility] [address] [place] [address] Potassium [Moles/Vol] 5.2 mmol/L High 3.5-5.1 [facility] Comment on above: Performed By: #### P T #### [facility] [address] [place] [address] Sodium [Moles/Vol] 133 mmol/L Low 135-145 [facility] Comment on above: Performed By: #### P T #### [facility] [address] [place] [address] CULTURE AND STAIN - FLUIDon 08-17-2018 CULTURE AND STAIN - FLUID CULTURE & STAIN - FLUID --> Status: F No growth at 5 days. STAIN GRAM --> Status: F Few polymorphonuclear cells/lpf. No organisms seen. No organisms seen. Normal [facility] Comment on above: Performed By: #### T SGL #### [facility] [address] [place] [address] CULTURE AND STAIN - TISSUEon 08-17-2018 CULTURE AND STAIN - TISSUE CULTURE & STAIN - TISSUE --> Status: F No growth at 3 days. STAIN GRAM --> Status: F Rare polymorphonuclear cells/lpf. No organisms seen. No organisms seen. Normal [facility] Comment on above: Order Comment: Speci men collected in O.R. Performed By: #### T SGL #### [facility] [address] [place] [address] CULTURE AND STAIN - TISSUE CULTURE & STAIN - TISSUE --> Status: F No growth at 3 days. STAIN GRAM --> Status: F Rare polymorphonuclear cells/lpf. No organisms seen. No organisms seen. [facility] Comment on above: Performed By: #### P T #### [facility] [address] [place] [address] Glucose,Bedsideon 08-17-2018 Glucose [Mass/Vol] 258 mg/dL High 70-100 [facility] Comment on above: Result Comment: Test performed by glucose meter. Results may be 10%-15% lower than serum/plasma values. (CLIA ID [id number]) Performed By: #### T SGL #### [facility] [address] [place] [address] Glucose [Mass/Vol] 257 mg/dL High 70-100 [facility] Comment on above: Result Comment: Test performed by glucose meter. Results may be 10%-15% lower than serum/plasma values. (CLIA ID [id number]) Performed By: #### T SGL #### [facility] [address] [place] [address] Glucose [Mass/Vol] 324 mg/dL High 70-100 [facility] Comment on above: Result Comment: Test performed by glucose meter. Results may be 10%-15% lower than serum/plasma values. (CLIA ID [id number]) Performed By: #### P T #### [facility] [address] [place] [address] Glucose [Mass/Vol] 319 mg/dL High 70-100 [facility] Comment on above: Result Comment: Test performed by glucose meter. Results may be 10%-15% lower than serum/plasma values. (CLIA ID [id number]) Performed By: #### P T #### [facility] [address] [place] [address] Hemoglobin A1Con 08-17-2018 HbA1c (Bld) [Mass fraction] 177 mg/dL Normal [facility] Comment on above: Performed By: #### P T #### [facility] [address] [place] [address] HbA1c (Bld) [Mass fraction] 7.8 % High 4.0-5.7 [facility] Comment on above: Result Comment: --Hg bA1C levels may not be accurate in patients who have renal disease, received recent blood transfusions, are anemic, or who have dyshemoglobinemia. Performed By: #### P T #### [facility] [address] [place] [address] Hemoglobin AND Hematocriton 08-17-2018 Hematocrit (Bld) [Volume fraction] 35.9 % Low 40.0-52.0 [facility] Comment on above: Performed By: #### P T #### [facility] [address] [address] [place] [place] [address] Hemoglobin (Bld) [Mass/Vol] 12.2 g/dL Low 13.0-18.0 [facility] Comment on above: Performed By: #### P T #### [facility] [address] [facility] [facility] [place] [address] Prothrombin Timeon 9 INR Coag (PPP) [Relative time] 1.1 Normal 0.9-1.1 [facility] Comment on above: Result Comment: Campos mmended [...] Infarction Performed By: #### P T #### [facility] [address] [facility] [facility] [address] [address] PT Coag (PPP) [Time] 11.2 s Normal 9.0-12.0 [facility] Comment on above: Result Comment: . Performed By: #### P T #### [facility] [address] [facility] [place] [address] CR Femur 2+ Views Lefton CR Femur 2+ Views Left Patient Name: CHARLI PORRAS Diagnostic Radiology Exam Date/Time 08/16/2018 16:30:00 EDT Exam CR Femur 2+ Views Left n Ordering Physician MD LESLIE, SOHAN MEDINA Accession Number [id number] CPT4 Codes 98064 () Reason For Exam to see top [...] Transcribed Date and Time: 08/16/2018 4:59 Normal [facility] CR Knee 1 or 2 Views Lefton 08-16-2018 CR Knee 1 or 2 Views Left Patient Name: CHARLI PORRAS Diagnostic Radiology Exam Date/Time 08/16/2018 14:53:00 EDT Exam CR Knee 1 or 2 Views Left Ordering Physician FERNY GARCIA NICHOLAS A Accession Number [id number] CPT4 Codes 78313 () Reason For Exam s/p TKA Report [...] Transcribed Date and Time: 08/16/2018 4:59 Normal [facility] Glucose,Bedsideon 08-16-2018 Glucose [Mass/Vol] 292 mg/dL High 70-100 [facility] Comment on above: Result Comment: Test performed by glucose meter. Results may be 10%-15% lower than serum/plasma values. (CLIA ID [id number]) Performed By: #### P T #### [facility] [address] [place] [address] Glucose [Mass/Vol] 246 mg/dL High 70-100 [facility] Comment on above: Result Comment: Test performed by glucose meter. Results may be 10%-15% lower than serum/plasma values. (CLIA ID [id number]) Performed By: #### P T #### [facility] [address] [place] [address] Glucose [Mass/Vol] 261 mg/dL High [address] Comment on above: Result Comment: Test performed by glucose meter. Results may be 10%-15% lower than serum/plasma values. (CLIA ID [id number]) Performed By: #### P T #### [facility] [address] [place] [address] Glucose [Mass/Vol] 323 mg/dL High 70-100 [facility] Comment on above: Result Comment: Test performed by glucose meter. Results may be 10%-15% lower than serum/plasma values. (CLIA ID [id number]) Performed By: #### B GLU #### [place] [address] [place] [address] Glucose [Mass/Vol] 333 mg/dL High [address] Comment on above: Result Comment: Test performed by glucose meter. Results may be 10%-15% lower than serum/plasma values. (CLIA ID [id number]) Performed By: #### B GLU #### [facility] [address] [place] [address] Glucose [Mass/Vol] 301 mg/dL [facility] [address] Comment on above: Result Comment: Test performed by glucose meter. Results may be 10%-15% lower than serum/plasma values. (CLIA ID [id number]) Performed By: #### B GLU #### [facility] [address] [place] [address] Glucose [Mass/Vol] 317 mg/dL High 70-100 [facility] Comment on above: Result Comment: Test performed by glucose meter. Results may be 10%-15% lower than serum/plasma values. (CLIA ID [id number]) Performed By: #### B GLU #### [facility] [address] [place] [address] Glucose [Mass/Vol] 198 mg/dL High 70-100 [facility] Comment on above: Result Comment: Test performed by glucose meter. Results may be 10%-15% lower than serum/plasma values. (CLIA ID [id number]) Performed By: #### B GLU #### [facility] [address] [place] [address] Op Noteon 08-16-2018 Op Note [facility] [address] [facility] [address] Dept: [phone] Loc: [phone] Operative Report Patient Name: Charli Porras Date of : 1950 Date of Surgery: 08/16/18 Providers Performing: Surgeon: Sohan Gilliland MD Theatrical Performer (s): cookie [email or web address], qamar guo Preoperative Diagnosis: [...] knee as well as revision performed in [place] by Dr. Graham. Is diagnosed with a [...] and the patient's name, medical record, number, [id number], and operative side was verified with the [...] reverse curettes and pituitary instruments. A laminar fly winder was then placed and a posterior synovectomy [...] motion and patellar tracking, as well as rastafarian of the joint line. The components were affixed utilizing the [employer] Simplex P antibiotic bone cement in [...] check Signed by: Sohan Gilliland MD Normal [facility] Prothrombin Timeon 9 INR Coag (PPP) [Relative time] 1.2 High 0.9-1.1 [facility] Comment on above: Result Comment: Campos mmended [...] Infarction Performed By: #### P T #### [facility] [address] [place] [address] PT Coag (PPP) [Time] 12.4 s High 9.0-12.0 [facility] Comment on above: Result Comment: . Performed By: #### P T #### [facility] [address] [place] [address] TS GELon 08-16-2018 TS GEL ABO Group: A Rh, Gel: NEG Antibody Screen Gel: NEG Normal [facility] Comment on above: Performed By: #### T SGL #### [facility] [address] [place] [address] CULTURE ANAEROBEon 9 CULTURE ANAEROBE CULTURE ANAEROBE --> Status: F No growth of anaerobes at 5 days. [facility] Comment on above: Order Comment: Speci men Source Comment:not recvd in sterile container,centrif. in spud Performed By: #### D IFBF, FLDCC, CRSTL #### [facility] [address] [place] [address] CULTURE AND STAIN - FLUIDon 05-23-2018 CULTURE AND STAIN - FLUID CULTURE & STAIN - FLUID --> Status: F No growth at 5 days. Normal [facility] Comment on above: Order Comment: Speci men Source Comment:not recvd in sterile container,centrif. in spud Performed By: #### D LAUREN WALTON, CRSTL #### [facility] [address] [place] [address] Basic Metabolic Panelon 05-04 Calcium [Mass/Vol] 9.1 mg/dL Normal 8.4-10.4 [facility] Comment on above: Performed By: #### D LAUREN WALTON, CRSTL #### [facility] [address] [place] [address] Glucose [Mass/Vol] 165 mg/dL High 70-100 [facility] Comment on above: Performed By: #### D LAUREN WALTON, CRSTL #### [facility] [address] [place] [address] Anion gap [Moles/Vol] 7 Normal [facility] Comment on above: Performed By: #### D LAUREN WALTON, CRSTL #### [facility] [address] [place], [place] CO2 [Moles/Vol] 27 mmol/L Normal 22-[address] [facility] Comment on above: Performed By: #### D LAUREN WALTON, CRSTL #### [facility] [address] [place] [address] Creatinine [Mass/Vol] 1.58 mg/dL High 0.52-1.25 [facility] Comment on above: Performed By: #### D LAUREN WALTON, CRSTL #### [facility] [address] [place] [address] GFR/1.73 sq M predicted among blacks MDRD (S/P/Bld) [Vol rate/Area] 53.0 mL/min/{1.73_m2} Normal >60 [facility] Comment on above: Performed By: #### D LAUREN WALTON, CRSTL #### [place] [address] [address] [place], [place] GFR/1.73 sq M predicted among non-blacks MDRD (S/P/Bld) [Vol rate/Area] 43.7 mL/min/{1.73_m2} Normal >60 [facility] Comment on above: Result Comment: Sour ce- MDRD equation with creatinine calibration to IDMS(NKDEP) eGFR not recommended for drug dose adjustment Performed By: #### D LAUREN WALTON, CRSTL #### [place] [address] [address] [place], [place] Urea nitrogen [Mass/Vol] 33 mg/dL High 7-20 [facility] Comment on above: Performed By: #### LAUREN GRIJALVA, CRSTL #### [place] [address] [place], [place] Chloride [Moles/Vol] 104 mmol/L Normal 98-107 [facility] Comment on above: Performed By: #### D EDWARD WALTONC, CRSTL #### [place] [address] [place], [place] Potassium [Moles/Vol] 4.3 mmol/L Normal 3.5-5.1 [facility] Comment on above: Performed By: #### EDWARD GRIJALVAC, CRSTL #### [place] [address] [place], [place] Sodium [Moles/Vol] 138 mmol/L Normal 135-145 [facility] Comment on above: Performed By: #### D IFDEIDRA FLDCC, CRSTL #### [place] [address] [address] [place], [place] C-Reactive Proteinon -15-2 019 CRP [Mass/Vol] 19.4 mg/L High 0.0-6.0 [facility] Comment on above: Result Comment: . Performed By: #### P T, ESR, CRP2 #### [place] [address] [place] [address] CR Femur 2+ Views Lefton CR Femur 2+ Views Left Patient Name: CHARLI PORRAS Diagnostic Radiology Exam Date/Time 2018 04:30:02 EST Exam CR Femur 2+ Views Left n Ordering Physician MD BERNABE ADAM Accession Number [id number] CPT4 Codes 06318 () Reason For Exam proximal femur Report [...] Transcribed Date and Time: 2018 4:[address] [facility] [address] Head or Brain w/o Contras ton 2018 CT Head or Brain w/o Contrast Patient Name: CHARLI PORRAS CT Exam Date/Time 2018 04:36:[address] Head or Brain w/o Contrast Ordering Physician SERGEY ROSE Accession Number [id number] CPT4 Codes 46647 () Reason For Exam HEAD TRAUMA, CLOSED, [...] Transcribed Date and Time: 2018 5:03 Normal [facility] Cell Count,Body Fluidon 05-04 Nucleated Cells 21 {cells}/uL Normal [facility] Comment on above: Performed By: #### D IFBFLAYDCC, CRSTL #### [facility] [address] [place], [place] Fluid Type knee Normal [facility] Comment on above: Performed By: #### D IFDEIDRA FLDCC, CRSTL #### [facility] [address] [place], [place] Crystals,Body Fluidon 2018 Crystals LM Nom (Urine sed) Negative Normal [facility] Comment on above: Performed By: #### D IFBF, FLDCC, CRSTL #### [facility] [address] [place] [address] Fluid Type \[id number]\ Normal [facility] Comment on above: Performed By: #### D IFBF, FLDCC, CRSTL #### [facility] [address] [place], [place] Differential,Body Fluidson 0 2018 Lymphocytes/100 WBC (Bld) 10 % Normal [facility] Comment on above: Performed By: #### D IFBF, FLDCC, CRSTL #### [facility] [address] [place], [place] Monocytes/100 WBC (Bld) 11 % Normal [facility] Comment on above: Performed By: #### D IFBF, FLDCC, CRSTL #### [facility] [address] [place] [address] Neutrophils/100 WBC (Bld) 79 % Normal [facility] Comment on above: Performed By: #### D IFBF, FLDCC, CRSTL #### [facility] [address] [place] [address] Cells Counted for Diff 100 Normal [facility] Comment on above: Performed By: #### D IFBF, FLDCC, CRSTL #### [facility] [address] [place] [address] Glucose,Bedsideon 2018 Glucose [Mass/Vol] 175 mg/dL High 70-100 [facility] Comment on above: Result Comment: Test performed by glucose meter. Results may be 10%-15% lower than serum/plasma values. (CLIA ID [id number]) Performed By: #### D IFBF, FLDCC, CRSTL #### [facility] [address] [place] [address] Glucose [Mass/Vol] 165 mg/dL High 70-100 [facility] Comment on above: Result Comment: Test performed by glucose meter. Results may be 10%-15% lower than serum/plasma values. (CLIA ID [id number]) Performed By: #### D IFBF, FLDCC, CRSTL #### [facility] [address] [place] [address] Glucose [Mass/Vol] 144 mg/dL High 70-100 [facility] Comment on above: Result Comment: Test performed by glucose meter. Results may be 10%-15% lower than serum/plasma values. (CLIA ID [id number]) Performed By: #### B GLU #### [facility] [address] [place] [address] Hemogramon 2018 Erythrocyte distribution width (RBC) [Ratio] 15.1 % High 11.5-14.5 [facility] Comment on above: Performed By: #### D IFBF, FLDCC, CRSTL #### [facility] [address] [place], [place] Hematocrit (Bld) [Volume fraction] 40.8 % Normal 40.0-52.0 [facility] Comment on above: Performed By: #### D IFBF, FLDCC, CRSTL #### [place] [address] [place], [place] Hemoglobin (Bld) [Mass/Vol] 13.6 g/dL Normal 13.0-18.0 [facility] Comment on above: Performed By: #### D IFBF, FLDCC, CRSTL #### [place] [address] [place], [place] MCH (RBC) [Entitic mass] 29.7 pg Normal 26.0-34.0 [facility] Comment on above: Performed By: #### D IFBF, FLDCC, CRSTL #### [place] [address] [place] MCHC (RBC) [Mass/Vol] 33.4 % Normal 32.0-36.0 [facility] Comment on above: Performed By: #### D IFBF, FLDCC, CRSTL #### [place] [address] [place], [place] MCV (RBC) [Entitic vol] 89.0 fL Normal 80.0-98.0 [facility] Comment on above: Performed By: #### D IFBF, FLDCC, CRSTL #### [place] [address] [place], [place] Platelet mean volume (Bld) [Entitic vol] 8.1 fL Normal 7.4-10.4 [facility] Comment on above: Performed By: #### D IFBF, FLDCC, CRSTL #### [place] [address] [place], [place] Platelets (Bld) [#/Vol] 144 10*3/uL Normal 140-440 [facility] Comment on above: Performed By: #### D IFBF, FLDCC, CRSTL #### [place] [address] [place], [place] RBC (Bld) [#/Vol] 4.59 10*6/uL Normal 4.40-5.90 [facility] Comment on above: Performed By: #### D LAUREN WALTON, DEMETRIUS #### [facility] [address] [place], [place] WBC (Bld) [#/Vol] 6.4 10*3/uL Normal 3.6-10.7 [facility] Comment on above: Performed By: #### D LAUREN WALTON, DEMETRIUS #### [facility] [address] [place], [place] Prothrombin Timeon 9 INR Coag (PPP) [Relative time] 1.5 High 0.9-1.1 [facility] Comment on above: Result Comment: Campos mmended [...] By: #### P T, ESR, CRP2 #### [place] [address] [place], [place] PT Coag (PPP) [Time] 14.8 s High 9.0-12.0 [facility] Comment on above: Result Comment: . Performed By: #### P T, ESR, CRP2 #### [place] [address] [place], [place] STAIN GRAMon 2018 STAIN GRAM STAIN GRAM --> Statu s: F Moderate polymorphonuclear cells/lpf. Moderate mononuclear cells/lpf No organisms seen. Moderate mononuclear cells/lpf No organisms seen. Normal [facility] Comment on above: Order Comment: Speci men Source Comment:not recvd in sterile container, centrif. in spud Performed By: #### C /MARGARITO, S/GRM, CXFLD #### [place] [address] [place] [address] Sed Rateon 2018 Sed Rate 11 mm/h High 0-10 [facility] Comment on above: Performed By: #### P T, ESR, CRP2 #### [facility] [address] [place] [address] CBC WITH DIFFon 08-25-2016 ABSOLUTE BASO 0.10 K/UL Normal 0.00-0.20 [facility] ABSOLUTE EOS 0.10 K/UL Normal 0-0.33 [facility] ABSOLUTE LYMPHOCYTE 2.00 K/UL Normal 1.1-4.8 [facility] ABSOLUTE MONOCYTE 0.70 K/UL Normal 0.2-0.7 [facility] ABSOLUTE NEUTROPHIL 5.30 K/UL Normal 1.83-8.70 [facility] Basophils Auto #/vol (Bld) 1.0 % Normal 0.0-1.5 [facility] DIFF TYPE AUTO Normal [facility] Eosinophils/100 leukocytes 1.8 % Normal 0.0-3.0 [facility] Erythrocyte distribution width Auto Ratio (RBC) 14 % Normal 10.9-14.3 [facility] Erythrocytes (RBC) 4.74 M/UL Normal 4.50-5.50 [facility] Hematocrit (HCT) 42.2 % Normal 41.0-50.0 [facility] Hemoglobin mass conc (Bld) 14.3 g/dL Normal 13.5-16.5 [facility] Lymphocytes/100 leukocytes 24.3 % Normal 24-44 [facility] MCH 30.3 pg Normal 28.0-34.0 [facility] MCHC mass conc (RBC) 34.0 MG/DL Normal 33.0-37.0 [facility] MCV 89.1 fL Normal 80-100 [facility] Monocytes/100 leukocytes 8.6 % Normal 3.4-9.0 [facility] NEUTROPHIL 64.3 % Normal 40.0-74.0 [facility] Platelets 162 10*3/uL Normal 150-450 [facility] WBC (Leukocytes) 8.2 10*3/uL Normal 4.5-11.0 [facility] PROTIME COUMADINon 7 INR Coag RelTime (PPP) 4.21 HH Abnormal 2.0-3.5 [facility] RADon 08-25-2016 KNEE,LEFT (MIN 4 VIEWS) CPT [id number] [facility] IM Normal [facility] CBC WITHOUT DIFFon 6 Erythrocyte distribution width Auto Ratio (RBC) 14.2 % Normal 10.9-14.3 [facility] Erythrocytes (RBC) 4.87 M/UL Normal 4.50-5.50 [facility] Hematocrit (HCT) 42.7 % Normal 41.0-50.0 [facility] Hemoglobin mass conc (Bld) 14.3 g/dL Normal 13.5-16.5 [facility] MCH 29.4 pg Normal 28.0-34.0 [facility] MCHC mass conc (RBC) 33.5 MG/DL Normal 33.0-37.0 [facility] MCV 87.6 fL Normal 80-100 [facility] Platelets 180 10*3/uL Normal 150-450 [facility] WBC (Leukocytes) 9.6 10*3/uL Normal 4.5-11.0 [facility] COMPREHENSIVE MEon 6 Alanine aminotransferase (ALT) 22 U/L Normal 10-63 [facility] Albumin 4.3 g/dL Normal 3.4-4.8 [facility] Albumin/Globulin Ratio 1.2 {ratio} Normal 1.1-2.2 [facility] ALK PHOS 44 U/L Normal 42-121 [facility] Anion gap 10 mmol/L Normal 3-11 [facility] Aspartate aminotransferase (AST) 26 U/L Normal 10-41 [facility] Bilirubin (direct) 0.8 mg/dL Normal 0.3-1.5 [facility] Calcium 9.6 mg/dL Normal 8.5-10.5 [facility] Chloride 105 mmol/L Normal 98-107 [facility] CO2 21 mmol/L Normal 21-31 [facility] Creatinine 1.8 mg/dL Abnormal 0.6-1.3 [facility] eGFR (non-black) 45.9 mL/min/{1.73_m2} Abnormal 60.0-128 .0 [facility] eGFR (non-black) 37.9 mL/min/{1.73_m2} Abnormal 60.0-128 .0 [facility] Globulin 3.7 g/dL Normal 1.9-3.9 [facility] Glucose mass conc 101 mg/dL Abnormal 70-99 [facility] Potassium molar conc 4.6 mmol/L Normal 3.6-5.0 [facility] Protein 8 g/dL Abnormal 5.9-7.8 [facility] Sodium 136 mmol/L Normal 135-145 [facility] Urea nitrogen 34 mg/dL Abnormal 6-20 [facility] D DIMERon 04-25-2016 D DIMER 1569.6 H NG/ML Abnormal 0-499 [facility] EKGon 04-25-2016 cardio: EKG Test Reason : Normal [facility] ESR, SED RATEon 04-25-2016 ESR /SEDRATE 10 MM/HR Normal 0-20 [facility] HEMOGLOBIN A1Con 04-25-2016 Hemoglobin A1c/Hemoglobin.total mass fraction (Bld) 7 % Abnormal 4.0-6.0 [facility] TSHon 04-25-2016 Thyroid stimulating hormone (TSH) 2.79 UIU/ML Normal 0.34-5.60 [facility] CBC WITH DIFFon 01-04-2016 ABSOLUTE BASO 0.10 K/UL Normal 0.00-0.20 [facility] ABSOLUTE EOS 0.20 K/UL Normal 0-0.33 [facility] ABSOLUTE LYMPHOCYTE 1.80 K/UL Normal 1.1-4.8 [facility] ABSOLUTE MONOCYTE 0.50 K/UL Normal 0.2-0.7 [facility] ABSOLUTE NEUTROPHIL 3.30 K/UL Normal 1.83-8.70 [facility] Basophils Auto #/vol (Bld) 0.9 % Normal 0.0-1.5 [facility] DIFF TYPE AUTO Normal [facility] Eosinophils/100 leukocytes 4.2 % Abnormal 0.0-3.0 [facility] Erythrocyte distribution width Auto Ratio (RBC) 14.8 % Abnormal 10.9-14.3 [facility] Erythrocytes (RBC) 4.52 M/UL Normal 4.50-5.50 [facility] Hematocrit (HCT) 40.1 % Abnormal 41.0-50.0 [facility] Hemoglobin mass conc (Bld) 13.3 g/dL Abnormal 13.5-16.5 [facility] Lymphocytes/100 leukocytes 29.9 % Normal 24-44 [facility] MCH 29.4 pg Normal 28.0-34.0 [facility] MCHC mass conc (RBC) 33.2 MG/DL Normal 33.0-37.0 [facility] MCV 88.7 fL Normal 80-100 [facility] Monocytes/100 leukocytes 8.5 % Normal 3.4-9.0 [facility] NEUTROPHIL 56.5 % Normal 40.0-74.0 [facility] Platelets 168 10*3/uL Normal 150-450 [facility] WBC (Leukocytes) 5.9 10*3/uL Normal 4.5-11.0 [facility] COMPREHENSIVE MEon 6 Alanine aminotransferase (ALT) 20 U/L Normal 10-63 [facility] Albumin 4 g/dL Normal 3.4-4.8 [facility] Albumin/Globulin Ratio 1.1 {ratio} Normal 1.1-2.2 [facility] ALK PHOS 43 U/L Normal 42-121 [facility] Anion gap 9 mmol/L Normal 3-11 [facility] Aspartate aminotransferase (AST) 20 U/L Normal 10-41 [facility] Bilirubin (direct) 0.6 mg/dL Normal 0.3-1.5 [facility] Calcium 9.6 mg/dL Normal 8.5-10.5 [facility] Chloride 108 mmol/L Abnormal 98-107 [facility] CO2 22 mmol/L Normal 21-31 [facility] Creatinine 1.7 mg/dL Abnormal 0.6-1.3 [facility] eGFR (non-black) 49 mL/min/{1.73_m2} Abnormal 60.0-128.0 [facility] eGFR (non-black) 40.5 mL/min/{1.73_m2} Abnormal 60.0-128 .0 [facility] Globulin 3.5 g/dL Normal 1.9-3.9 [facility] Glucose mass conc 263 mg/dL Abnormal 70-99 [facility] Potassium molar conc 4.9 mmol/L Normal 3.6-5.0 [facility] Protein 7.5 g/dL Normal 5.9-7.8 [facility] Sodium 139 mmol/L Normal 135-145 [facility] Urea nitrogen 39 mg/dL Abnormal 6-20 [facility] HEMOGLOBIN A1Con 01-04-2016 Hemoglobin A1c/Hemoglobin.total mass fraction (Bld) 6.7 % Abnormal 4.0-6.0 [facility] LIPID B PROFILEon 01-04-2016 Cholesterol 170 mg/dL Normal 140-200 [facility] HDL Cholesterol 31 mg/dL Normal 29-71 [facility] LDL Cholesterol 102 MG/DL Normal 0-129 [facility] LDL to HDL Ratio 3.3 Normal [facility] Triglyceride 297 mg/dL Abnormal 41-189 [facility] PROTIME COUMADINon 6 INR Coag RelTime (PPP) 3.53 H Abnormal 2.0-3.5 [facility] URINE MICRO ALBUon 6 UR RDM MICROALBUMIN 39.4 H UG/ML Abnormal 0.0-19.0 [facility] Vital Signs Date Time Vital Sign Value Performing Clinician Debi quevedo 10-19-2024 15:31-0400 Body temperature 97.9 [degF] No Primary Care Physician [facility] 10-19-2024 15:31-0400 Diastolic blood pressure 69 mm[Hg] No Primary Care Physician [facility] 10-19-2024 15:31-0400 Heart rate 80 /min No Primary Care Physician [facility] 10-19-2024 15:31-0400 Respiratory rate 18 /min No Primary Care Physician [facility] 10-19-2024 15:31-0400 SaO2% (BldA) [Mass fraction] 97 % No Primary Care Physician [facility] 10-19-2024 15:31-0400 Systolic blood pressure 155 mm[Hg] No Primary Care Physician [facility] 10-19-2024 14:30-0400 Body height 175.26 cm No Primary Care Physician [facility] 10-19-2024 14:30-0400 Body weight 131.6 kg No Primary Care Physician [facility] 10-19-2024 05:24-0400 Body mass index (BMI) [Ratio] 42.8 kg/m2 No Primary Care Physician [facility] 10-14-2024 01:00-0400 Body temperature 98.3 [degF] No Primary Care Physician [facility] 10-14-2024 01:00-0400 Diastolic blood pressure 73 mm[Hg] No Primary Care Physician [facility] 10-14-2024 01:00-0400 Heart rate 68 /min No Primary Care Physician [facility] 10-14-2024 01:00-0400 Respiratory rate 17 /min No Primary Care Physician [facility] 10-14-2024 01:00-0400 SaO2% (BldA) [Mass fraction] 98 % No Primary Care Physician [facility] 10-14-2024 01:00-0400 Systolic blood pressure 127 mm[Hg] No Primary Care Physician [facility] 10-13-2024 20:30-0400 Body mass index (BMI) [Ratio] 44.5 kg/m2 No Primary Care Physician [facility] 10-13-2024 20:30-0400 Body weight 136.9 kg No Primary Care Physician [facility] 10-13-2024 17:47-0400 Body height 175.26 cm No Primary Care Physician [facility] 08-23-2024 13:35-0400 Body temperature 97.9 [degF] No Primary Care Physician [facility] 08-23-2024 13:35-0400 Diastolic blood pressure 61 mm[Hg] No Primary Care Physician [facility] 08-23-2024 13:35-0400 Heart rate 67 /min No Primary Care Physician [facility] 08-23-2024 13:35-0400 Respiratory rate 17 /min No Primary Care Physician [facility] 08-23-2024 13:35-0400 SaO2% (BldA) [Mass fraction] 95 % No Primary Care Physician [facility] 08-23-2024 13:35-0400 Systolic blood pressure 151 mm[Hg] No Primary Care Physician [facility] 08-23-2024 06:00-0400 Body mass index (BMI) [Ratio] 46 kg/m2 No Primary Care Physician [facility] 08-23-2024 06:00-0400 Body weight 141 kg No Primary Care Physician [facility] 08-22-2024 11:03-0400 Body height 175.26 cm No Primary Care Physician [facility] 08-21-2024 09:18-0400 Inhaled oxygen flow rate 2 L/min No Primary Care Physician [facility] 08-20-2024 06:00-0400 Body temperature 98.1 [degF] No Primary Care Physician [facility] 08-20-2024 06:00-0400 Diastolic blood pressure 58 mm[Hg] No Primary Care Physician [facility] 08-20-2024 06:00-0400 Heart rate 78 /min No Primary Care Physician [facility] 08-20-2024 06:00-0400 Inhaled oxygen flow rate 2 L/min No Primary Care Physician [facility] 08-20-2024 06:00-0400 Respiratory rate 18 /min No Primary Care Physician [facility] 08-20-2024 06:00-0400 SaO2% (BldA) [Mass fraction] 98 % No Primary Care Physician [facility] 08-20-2024 06:00-0400 Systolic blood pressure 100 mm[Hg] No Primary Care Physician [facility] 08-19-2024 23:48-0400 Body height 175.01 cm No Primary Care Physician [facility] 08-19-2024 23:48-0400 Body mass index (BMI) [Ratio] 44.6 kg/m2 No Primary Care Physician [facility] 08-19-2024 23:48-0400 Body weight 136.8 kg No Primary Care Physician [facility] 11-06-2022 16:37-0400 Body temperature 97.8 [degF] [facility] 11-06-2022 16:37-0400 Diastolic blood pressure 91 mm[Hg] [facility] 11-06-2022 16:37-0400 Heart rate 72 /min [facility] 11-06-2022 16:37-0400 Respiratory rate 18 /min [facility] 11-06-2022 16:37-0400 SaO2% (BldA) [Mass fraction] 96 % [facility] 07-06-2023 16:37-0400 Systolic blood pressure 154 mm[Hg] [facility] 11-06-2022 14:11-0400 Body height 175.26 cm [facility] 11-06-2022 14:11-0400 Body mass index (BMI) [Ratio] 48.2 kg/m2 [facility] 11-06-2022 [id number] Body weight 148.32 kg [facility] 06-02-2022 08:00-0500 Heart rate 92 /min Ericka Ange Work Phone: [facility] 06-02-2022 08:00-0500 Respiratory rate 88 /min Ericka Ange Work Phone: [facility] 06-02-2022 08:00-0500 SaO2% (BldA) [Mass fraction] 90 % Ericka Ange Work Phone: [facility] 06-02-2022 07:55-0500 Body temperature 97.6 [degF] Ericka Ange Work Phone: [facility] 06-02-2022 07:55-0500 Diastolic blood pressure 64 mm[Hg] Ericka Ange Work Phone: [facility] 06-02-2022 07:55-0500 Systolic blood pressure 125 mm[Hg] Ericka Ange Work Phone: [facility] 05-31-2022 19:20-0500 Body height 175.26 cm Ericka Ange Work Phone: [facility] 05-31-2022 19:20-0500 Body mass index (BMI) [Ratio] 44.2 kg/m2 Ericka Ange Work Phone: [facility] 05-31-2022 19:20-0500 Body weight 135.99 kg Ericka Ange Work Phone: [facility] 04-23-2022 15:22-0500 SaO2% (BldA) [Mass fraction] 96 % Ericka Ange Work Phone: [facility] 04-23-2022 11:55-0500 Body temperature 97.9 [degF] Ericka Ange Work Phone: [facility] 04-23-2022 11:55-0500 Diastolic blood pressure 94 mm[Hg] Ericka Ange Work Phone: [facility] 04-23-2022 11:55-0500 Heart rate 85 /min Ericka Ange Work Phone: [phone] [place] [address] 04-23-2022 11:55-0500 Respiratory rate 17 /min Ericka Ange Work Phone: [facility] 04-23-2022 11:55-0500 SaO2% (BldA) [Mass fraction] 98 % Ericka Ange Work Phone: [facility] 04-23-2022 11:55-0500 Systolic blood pressure 130 mm[Hg] Ericka Ange Work Phone: [facility] 04-19-2022 14:43-0500 Diastolic blood pressure 70 mm[Hg] Ericka Ange Work Phone: [facility] 04-19-2022 14:43-0500 Heart rate 89 /min Ericka Ange Work Phone: [facility] 04-19-2022 14:43-0500 Respiratory rate 18 /min Ericka Ange Work Phone: [facility] 04-19-2022 14:43-0500 SaO2% (BldA) [Mass fraction] 99 % Ericka Ange Work Phone: [facility] 04-19-2022 14:43-0500 Systolic blood pressure 107 mm[Hg] Ericka Ange Work Phone: [facility] 04-19-2022 03:04-0500 Body temperature 99.4 [degF] Ericka Ange Work Phone: [facility] 04-19-2022 00:16-0500 Body height 175.26 cm Ericka Cassidy Work Phone: [facility] 04-19-2022 00:16-0500 Body weight 148.78 kg Ericka Cassidy Work Phone: [facility] 08-25-2016 19:00-0400 BP Diastolic 94 mm[Hg] [facility] 08-25-2016 19:00-0400 BP Systolic 162 mm[Hg] [facility] 08-25-2016 19:00-0400 Pulse (Heart Rate) 74 /min [facility] 08-25-2016 19:00-0400 Respiratory Rate 18 /min [facility] 08-25-2016 14:38-0400 Body Temperature 97.7 [degF] [facility] Encounters Encounter Date Encounter Type Care Provider Facility Start: 10-17-2024 Non-patient / [facility] Work Phone: Start: 10-16-2024 Non-patient / Non-visit [facility] Work Phone: Start: 10-15-2024 Non-patient / Non-visit [facility] Work Phone: Start: 10-14-2024 Non-patient / Non-visit Dr. John Brownlee DO [facility] Work Phone: Start: 10-13-2024 ambulatory Bisi Rivera Facility:[facility] Start: 10-13-2024 End: 10-19-2024 Evaluation and management of inpatient Dr. Bisi Rivera DO -[facility] Work Phone: Start: 08-23-2024 Non-patient / Non-visit Dr. Mao Muse MD [facility] Work Phone: Start: 08-22-2024 Non-patient / Non-visit Dr. Mao Muse MD -[facility] Work Phone: Start: 08-21-2024 Non-patient / Non-visit Dr. Mao Muse MD -[facility] Work Phone: Start: 08-20-2024 End: 08-23-2024 Evaluation and management of inpatient Dr. Saroj Gutierrez DO -Intensive Care Unit Work Phone: Start: 08-20-2024 Non-patient / Non-visit Dr. Bennett DO -[facility] Work Phone: Start: 08-20-2024 ambulatory No Primary Car e Physician Facility:[facility] Start: 03-18-2024 End: 03-18-2024 Emergency department [facility] Facility:[facility] Start: 11-06-2022 End: 11-06-2022 Emergency department patient visit [facility] Work Phone: Start: 06-06-2022 ambulatory DEVIKA STEIN Facility:[facility] Start: 06-02-2022 Non-patient / Non-visit Alejandra ly Ange Work Phone: [facility] Start: 06-01-2022 Non-patient / Non-visit Alejandra ly Ange Work Phone: [facility] Start: 05-31-2022 End: 06-02-2022 Evaluation and management of inpatient Naresh Sainz Facility:[facility] Start: 05-31-2022 End: 06-02-2022 Evaluation and management of inpatient Ericka Ange Work Phone: [facility] Start: 04-23-2022 ambulatory Errol Bo ty:[facility] Start: 04-23-2022 Non-patient / Non-visit Alejandra ly Ange Work Phone: [facility] Hospitalist Start: 04-22-2022 Non-patient / Non-visit Alejandra ly Ange Work Phone: [facility] Hospitalist Start: 04-21-2022 Non-patient / Non-visit Alejandra ly Ange Work Phone: [facility] Hospital[facility] Start: 04-20-2022 Non-patient / Non-visit Alejandra ly Ange Work Phone: [facility] Hospital[facility] Start: 04-19-2022 Non-patient / Non-visit Alejandra ly Ange Work Phone: [facility] Hospitalist Start: 04-19-2022 Evaluation and management of inpatient Ericka Ange Work Phone: [facility] Start: 04-19-2022 observation encounter Ericka Freemanbee Work Phone: [facility] Work Phone: Start: 04-19-2022 End: 04-23-2022 ambulatory Ericka Ange Facility:[facility] Start: 04-19-2022 End: 04-23-2022 Evaluation and management of inpatient Ericka Ange Work Phone: [facility] Start: 04-19-2022 End: 04-23-2022 observation encounter Ericka Freemanbee Work Phone: [facility] Work Phone: Start: 03-10-2022 ambulatory Sunita Barnes Facility :[facility] Start: [facility] Start: 11-07-2021 ambulatory [facility] Facility:[facility] Start: 08-29-2021 ambulatory [facility] Facility:[facility] Start: 07-02-2021 End: 07-12-2021 Evaluation and management of inpatient UNKNOWN PROVIDER Facility:[facility] Start: 06-26-2021 ambulatory [facility] Facility:[facility] Start: 01-19-2022 ambulatory [facility] Facility:[facility] Start: 03-20-2021 ambulatory [facility] Facility:[facility] Procedures Date Procedure Procedure Detail Performing Clinician Start: 10-19-2024 Estimated creatinine clearance No Primary Care Physician Start: 10-14-2024 Serum inorganic phos phate measurement No Primary Care Physician Start: 10-13-2024 CT of abdomen and pe lvis without contrast No Primary Care Physician Start: 10-13-2024 Estimated creatinine clearance No Primary Care Physician Start: 10-13-2024 Urnls dip stick/tabl et reagent auto microscopy No Primary Care Physician Start: 10-13-2024 Blood culture No Primar y Care Physician Start: 10-13-2024 Urine culture No Primar y Care Physician Start: 08-23-2024 Estimated creatinine clearance No Primary [...] Cholecystectomy SHEILA NICK N Cholesterol MAO ELROY Katherine Filter SHEILA BLACKMON Incision of trachea SHEILA DUPREE Microbial culture Ericka oneill Work Phone: Repair of quadriceps SHEILA DUVAL SARS-CoV-2 Rapid RNA (RT-PCR) Ericka Cassidy Work Phone: SARS-CoV-2 Rapid RNA (RT-PCR) Ericka Cassidy Work Phone: Urine culture Ericka campos Work Phone: Urine culture Ericka campos Work Phone: Plan of Treatment Date Care Activity Detail Author Start: 10-19-2024 Patient discharge [facility] Start: 10-17-2024 [facility] Start: 10-15-2024 [facility] Start: 10-14-2024 Following clinical p athway protocol [facility] Start: 10-14-2024 Assessment of risk o f venous thromboembolism [facility] Start: 10-14-2024 Care regimes management [facility] Start: 10-14-2024 Catheterization of vein [facility] Start: 10-14-2024 Inhalation therapy procedure [facility] Start: 10-14-2024 Insertion of cathete r into peripheral vein [facility] Start: 10-14-2024 Measuring intake and output [facility] Start: 10-14-2024 Notification of physician [facility] Start: 10-14-2024 Providing care accor ding to standard [facility] Start: 10-14-2024 Provision of activit y privileges [facility] Start: 10-14-2024 Referral to occupati onal therapist [facility] Start: 10-14-2024 Referral to service [facility] Start: 10-13-2024 Hospital admission, emergency, from emergency room, medical nature [facility] Start: 10-13-2024 Verification routine [facility] Start: 10-13-2024 Admission procedure [facility] Start: 10-13-2024 End: 10-14-2024 [facility] Start: 10-13-2024 Bacteria identified in Blood by Culture Blood Culture [facility] Start: 10-13-2024 Bacteria identified in Urine by Culture Urine Culture [facility] Start: 08-23-2024 Referral to service [facility] Start: 08-23-2024 Patient discharge [facility] Start: 08-22-2024 Consultation [facility] Start: 08-22-2024 Referral to smooth and burr worker composites [facility] Start: 08-21-2024 [facility] Start: 08-20-2024 Bacteria identified in Blood by Culture Blood Culture [facility] Start: 08-20-2024 Bacteria identified in Urine by Culture Urine Culture [facility] Start: 08-20-2024 Following clinical p athway protocol [facility] Start: 08-20-2024 Assessment of risk o f venous thromboembolism [facility] Start: 08-20-2024 Elevation of head of bed [facility] Start: 08-20-2024 Insertion of cathete r into peripheral vein [facility] Start: 08-20-2024 Measuring intake and output [facility] Start: 08-20-2024 Oxygen therapy [facility] Start: 08-20-2024 Providing care accor ding to standard [facility] Start: 08-20-2024 Referral to occupati onal therapist [facility] Start: 08-20-2024 Referral to service [facility] Start: 08-20-2024 Vital signs measurements [facility] Start: 08-20-2024 End: 08-20-2024 [facility] Start: 08-20-2024 Care regimes management [facility] Start: 08-20-2024 Notification of physician [facility] Start: 08-20-2024 Verification routine [facility] Start: 08-20-2024 Admission procedure [facility] Start: 08-20-2024 Hospital admission, emergency, from emergency room, medical nature [facility] Start: 08-20-2024 End: 08-20-2024 [facility] Start: 06-02-2022 [facility] Start: 06-02-2022 Patient discharge [facility] Start: 05-31-2022 Referral to occupati onal therapist [facility] Start: 05-31-2022 End: 06-01-2022 Referral to service [facility] Start: 05-31-2022 Hospital admission [facility] Start: 05-31-2022 Vascular disease ris k assessment [facility] Start: 04-27-2022 [facility] Start: 04-26-2022 End: 04-26-2022 [facility] Start: 04-25-2022 End: 04-25-2022 [facility] Start: 04-24-2022 End: 04-24-2022 [facility] Start: 04-23-2022 Patient discharge [facility] Start: 04-23-2022 End: 04-23-2022 [facility] Start: 04-22-2022 [facility] Start: 04-21-2022 [facility] Start: 04-21-2022 [facility] Start: 04-21-2022 [facility] Start: 04-21-2022 [facility] Start: 04-20-2022 General health panel [facility] Start: 04-20-2022 [facility] Start: 04-19-2022 Referral to occupati onhi therapist [facility] Start: 04-19-2022 Referral to service [facility] Start: 04-19-2022 Hospital admission [facility] Start: 04-19-2022 Vascular disease ris k assessment [facility] Start: 04-19-2022 End: 04-19-2022 [facility] Start: 04-19-2022 [facility] Start: 04-19-2022 End: 04-19-2022 [facility] Start: 04-19-2022 Referral to service [facility] Bacteria identified in Blood by Culture Blood Culture [facility] Bacteria identified in Unspecified specimen by Anaerobe+Aerobe culture [facility] Evaluation of urine specimen [facility] Gabapentin [Mass/vol ume] in Serum, Plasma or Blood [facility] Influenza virus B Ag [Presence] in Unspecified specimen [facility] INR in Platelet poor plasma by Coagulation assay [facility] Ketones [Presence] in Urine [facility] Lactic acid measurement [facility] Microbial culture Blood Culture [facility] Microbial culture Blood Culture [facility] Nitrate [Presence] in Urine [facility] Patient Education [facility] Work Phone: Patient referral [facility] Work Phone: pH of Urine [facility] Prothrombin time (PT ) in Blood by Coagulation assay [facility] SARS-CoV-2 Rapid RNA (RT-PCR) SARS-CoV-2 Rapid RNA (RT-PCR) [facility] Specific gravity of Urine [facility] Urinalysis, blood, qualitative [facility] Urine culture Urine Culture [facility] Urine culture [facility] Urine culture [facility] Urine dipstick for glucose [facility] Urine dipstick for protein [facility] Urine examination [facility] Urine leukocyte test [facility] Immunizations Immunization Date Immunization Notes Care Provider Fa cility 02-11-2022 influenza, injectabl e, quadrivalent, preservative free No Primary Care Physician [facility] 03-05-2021 Covid (Moderna) No Primary C are Physician [facility] 03-05-2021 Influenza, injectabl e, Madin Williams Canine Kidney, preservative free, quadrivalent No Primary Care Physician [facility] 07-24-2020 Covid (Moderna) No Primary C are Physician [facility] 06-26-2020 Covid (Moderna) No Primary C are Physician [facility] 02-06-2020 influenza, injectabl e, quadrivalent, preservative free No Primary Care Physician [facility] 02-06-2020 pneumococcal polysaccharide vaccine, 23 valent No Primary Care Physician [facility] 02-01-2019 influenza, injectabl e, quadrivalent, preservative free No Primary Care Physician [facility] 05-03-2018 pneumococcal conjuga te vaccine, 13 valent No Primary Care Physician [facility] pneumococcal polysaccharide vaccine, 23 valent SHEILA DUVAL [facility] Payers Date Payer Category Payer Unknown [id number] 2022 Medicare [id number] 2022 Unknown [id number] 2021 Private Health Insurance [id number] 2021 Self-pay 2021 Unknown [id number] Medicare [id number] Medicare MEDICARE OUTPATI ENT PART B [id number] Medicare MEDICARE PART A B [id number] Unknown [id number] [id number]. 630 Unknown [id number] 2.16.840.1.768896.3.579.2. 630 Unknown [id number] 2.16.840.1.746104.3.579.2. 630 Unknown [id number] 2.16.840.1.317234.3.579.2. 630 Unknown [id number] 2.16.840.1.073504.3.579.2. 630 Unknown [id number] 2.16.840.1.077645.3.579.2. 630 Unknown [id number] 2.16.840.1.069740.3.579.2. 630 Unknown [facility] [id number] Unknown [id number] 2.16.840.1.641015.3.579.2. 212 Unknown [id number] 2.16.840.1.641112.3.579.2. 212 Unknown [id number] 2.16.840.1.272757.3.579.2. 921 Unknown [id number] 2.16.840.1.530411.3.579.2. 921 Unknown [id number] 2.16.840.1.134408.3.579.2. 462 Unknown [id number] 2.16.840.1.701718.3.579.2. 462 Unknown [id number] 2.16.840.1.696595.3.579.2. 462 Unknown [id number] 2.16.840.1.563000.3.579.2. 462 Unknown [id number] 2.16.840.1.548058.3.579.2. 462 Unknown [id number] 2.16.840.1.633998.3.579.2. 462 Unknown [id number] 2.16.840.1.728980.3.579.2. 462 Unknown [id number] 2.16.840.1.872747.3.579.2. 462 Unknown [id number] 2.16.840.1.681329.3.579.2. 462 Unknown [id number] 2.16.840.1.405223.3.579.2. 462 Unknown [id number] 2.16.840.1.534083.3.579.2. 462 Unknown [id number] 2.16.840.1.971373.3.579.2. 462 Unknown [id number] 2.16.840.1.265919.3.579.2. 462 Social History Date Type Detail Facility never a smoker [facility] Start: 04-19-2022 End: 10-13-2024 Tobacco smoking status NHIS Never smoked tobacco (finding) [facility] Start: 04-19-2022 No [facility] Start: 1950 Sex Assigned At Male [facility] Start: 11-06-2022 Tobacco smoking stat us ORIS Unknown if ever smoked [facility] Start: 08-20-2024 Sex Male (finding) [facility] Goals Date Patient Goal Desired Activity /State Functional Status Date Assessment Result Facility 10-19-2024 Functional status Ambulates [facility] Work Phone: 08-23-2024 Functional status Chair [facility] Work Phone: 06-02-2022 Functional status Independent [facility] Work Phone: 06-02-2022 Functional status Speech Pattern Clear [facility] Work Phone: 05-31-2022 Functional status Fair [facility] Work Phone: 05-31-2022 Functional status Support Person Spouse [facility] Work Phone: 04-23-2022 Functional status [facility] Work Phone: 04-22-2022 Functional status Hard of Hearing [facility] Work Phone: 04-19-2022 Functional status Walker-Wheeled [place] [facility] Work Phone: 04-19-2022 Functional status Speech Pattern Appropri ate [facility] Work Phone: 04-19-2022 Functional status Normal [facility] Work Phone: Mental Status Date Assessment Result Facility 10-19-2024 Cognitive function Voice/Name [facility] Work Phone: 08-23-2024 Cognitive function Voice/Name [facility] Work Phone: 08-20-2024 Cognitive function Level Of Cons ciousness Follows Commands;Drowsy [facility] Work Phone: 06-02-2022 Cognitive function Impaired Cognition No [facility] Work Phone: 06-01-2022 Cognitive function Cooperative [facility] Work Phone: 04-23-2022 Cognitive function Yes [facility] Work Phone: 04-23-2022 Cognitive function Mood Descript ion Appropriate;Calm [facility] Work Phone: 04-19-2022 Cognitive function Mood Description Calm [facility] Work Phone: Clinical Notes 04-19-2022 to 10-19-2024 Note Date & Type Note Facility 10-19-2024 Discharge summary [facility] 10-19-2024 Note [facility] Medical Records Department [address] [place] [address] Discharge Summary 10/19/24 1529 MR#: [id number] Acct: [id number] Name: CHARLI PORRAS Rep #: [id number] : 1950 74 From: Jocelyn Polk MD PCP: [facility] Status:DIS IN Location: [place] [address] Providers Date of Admission: 10/13/24 Date of Discharge: 10/19/24 Primary Care Physician: MELY DUARTE Reason For Visit: Altered mental status Diagnosis Discharge Diagnosis (1) Physical debility: Status: Acute Code(s): R53.81 - Other malaise (2) Acute encephalopathy: Status: Acute Code(s): G93.40 - Encephalopathy, unspecified Plan #Acute encephalopathy- suspect toxic encephalopathy #Physical debility #Morbid obesity # Hypothyroidism # Dementia # CKD Medications at Discharge Home Medications allopurinol 100 mg tablet 100 mg PO DAILYCM gout 05/03/13 acprunje-zpd-dwfnl acid 0.4 mg-lycopene 300 mcg-lutein 250 mcg tablet (Centrum Silver) 1 ea PO DAILY vitamin 05/03/13 donepezil 10 mg tablet 10 mg PO QHS dementia 03/18/24 dulaglutide 3 mg/0.5 mL subcutaneous pen injector (Trulicity) 3 mg subcut QWEEK diabetes 03/18/24 duloxetine 60 mg capsule,delayed release 60 mg PO DAILY depression 03/18/24 empagliflozin 25 mg tablet (Jardiance) 25 mg PO DAILY diabetes 03/18/24 ezetimibe 10 mg tablet 10 mg PO DAILY cholesterol 03/18/24 glipizide 10 mg tablet, extended release 24 hr 10 mg PO DAILY diabetes 03/18/24 levothyroxine 50 mcg tablet 50 mcg PO DAILY thyroid 03/18/24 lisinopril 2.5 mg tablet 2.5 mg PO DAILY blood pressure 03/18/24 pramipexole 0.125 mg tablet 0.125 mg PO BID parkinsons 03/18/24 trazodone 50 mg tablet 50 mg PO DAILY@1700 #0 tabs 08/23/24 trazodone 50 mg tablet 50 mg PO QHS #0 tabs 08/23/24 insulin glargine 100 unit/mL (3 mL) subcutaneous pen (Basaglar KwikPen U-100 Insulin) 75 unit subcut QPM diabetes 10/13/24 tamsulosin 0.4 mg capsule 0.4 mg PO DAILY urine flow 10/15/24 docusate sodium 100 mg capsule 200 mg (2 x 100 mg) PO BID 10 days #40 caps 10/19/24 gabapentin 800 mg tablet 400 mg (1/2 x 800 mg) PO TIDCM nerve pain #45 tabs 10/19/24 quetiapine 50 mg tablet 25 mg (1/2 x 50 mg) PO DAILY mental health 30 days #30 tabs 10/19/24 tramadol 50 mg tablet 50 mg PO Q8H PRN pain #30 tabs 10/19/24 Hospital Course Summary of Care Provided Minutes Spent on Discharge: 25 Hospital Course: 74-year-old male with history of CKD, dementia, gout, diabetes, neuropathy, hypertension who presented to [facility] ED due to altered mental status. Patient reportedly had been recently diagnosed with a UTI and was placed on outpatient Cipro and there was report of possible fever and there is off of that improved with Cipro but had secondary worsening of mental status and hallucinations as well as generalized weakness so she came to the ED. Hospitalist contacted for admission. Provider who was previously providing care noted low colony counts of Pseudomonas and did not think that patient had true infection, antibiotics were discontinued during admission. Mental status did improve but I suspect his altered mental status was toxic encephalopathy and some of this was medication related as patient had improvement with decrease in Seroquel and decreasing gabapentin as well as discontinuing Cipro.it is very possible patient may have also had secondary worsening of mental status after he was started on Cipro as this can sometimes cause neuropsychiatric side effects including confusion. Patient's repeat UA at our institution showed yeast but no bacterial growth and blood cultures were no growth to date. Initial plan was for SNF however reported that patient seemed to be at baseline and did not think that SNF would benefit him given he is at baseline, given overall medical and vital stability it does seem reasonable for patient to discharge home with , patient and are agreeable and patient has no new or acute complaints on the day of discharge. He is unsure if he has had a bowel movement but has no abdominal pain and no present nausea and instruction to take to [place] twice daily on discharge. Patient discharged home with in stable condition, discharge directions as follows: -As discussed your gabapentin has been decreased to 400 mg 3 times a day to help minimize sedation - your Seroquel was also decreased to 25 mg daily to help minimize sedation -You have also done well on tramadol three times daily, you would benefit from continuing this dosing until following up with your outpatient prescribing physician for further evaluation and instruction - due to constipation you will be given a prescription for Dulcolax to take twice daily -Please call your primary care provider's office upon discharge to schedule a hospital follow up within 1 week. -For any concerning signs o (more content not included)... [facility] 10-18-2024 Progress note Note Date/Time October 18, 2024 5:09pm [facility] Medical Records Department [address] [place] [address] Progress Note - Hospitalist 10/17/241905 MR#: [id number] Acct: [id number] Name: CHARLI PORRAS Rep #:[id number] : 1950 74 From: John Rod DO PCP: ABHISHEK ST Status:ADM IN Location: [place] [id number]- [id number] Reason for Visit Reason for Visit: Diagnoses Sepsis, unspecified organism (10/13/24) Acidosis, unspecified (10/13/24) Metabolic encephalopathy (10/13/24) Urinary tract infection, site not specified (10/13/24) Other malaise (10/13/24) Subjective Subjective Patient was seen and examined today I talked with his who was in the room at the time of my examination, I told her that I did not feel the patient had a urinary tract infection, she asked me what was causing his temperature before hecame in the hospital and I stated that he has not run a temperature since he hasbeen admitted. Patient was treated for a suspected UTI with Cipro, however, as of noted previously, there was only small numbers of Pseudomonas in his urine and I do not think this was a pathogen. I reduced the patient's gabapentin and Seroquel today to see if it would make him more alert. Objective Data Objective Data Vital Signs: Vital Signs Temp Pulse Resp BP Pulse Ox O2 Del Method 96.9 F L 81 16 147/83 H 95 Room Air 10/17/24 14:32 10/17/24 15:00 10/17/24 14:32 10/17/24 14:32 10/17/24 14:32 10/17/24 14:32 Oxygen Delivery Method Room Air Weight: 132.4 kg Body Mass Index (BMI) 43.1 Intake & Output: Intake and Output for Last 24 Hours 10/15/24 10/16/24 10/17/24 23:59 23:59 23:59 Intake Total 1740 / 1740 1440 / 1440 60 / 60 Output Total 1525 / 1525 2800 / 2800 1900 / 1900 Balance 215 / 215 -1360 / -1360 -1840 / -1840 Lab / Micro Data 10/14/24 04:02 10/14/24 04:02 Labs: Laboratory Results - last 24 hr 10/16/24 19:11: POC Glucose 152 H 10/16/24 21:38: POC Glucose 135 H 10/17/24 00:53: POC Glucose 166 H 10/17/24 06:49: POC Glucose 168 H 10/17/24 12:18: POC Glucose 186 H 10/17/24 16:45: POC Glucose 128 H Micro: Microbiology 10/13/24 22:00 Blood Culture (Wb) - Anticubital Left Blood Culture - Preliminary No growth in 48 hours. 10/13/24 22:00 Blood Culture (Wb) - Left Wrist Blood Culture - Preliminary No growth in 48 hours. 10/13/24 20:30 Urine, Clean Catch Urine Culture - Final Yeast, not Callie albicans Physical Exam Narrative alert and no apparent distress Constitutional Narrative: Patient has class III obesity General Appearance: cooperative, well kempt and well developed Orientation / Consciousness: awake, oriented to person and confused HEENT normocephalic, head/scalp atraumatic and moist oral mucous membranes Eyes PERRL, EOMs intact bilaterally and conjunctivae normal Neck supple, no JVD, thyroid normal and no carotid bruits General: trachea midline Resp normal respiratory effort, no retractions, no use of accessory muscles and clearto auscultation bilaterally Auscultation: Negative for rales, rhonchi or wheezes Cardio regular rate, regular rhythm, S1 normal heart sound, S2 normal heart sound, no murmurs, no rub and no gallops GI normal to inspection, nondistended, normoactive bowel sounds, soft to palpation,non-tender and non-distended Extremity normal to inspection and no clubbing, cyanosis, there is significant lower leg edema bilaterally with stasis dermatitis changes of the skin Skin There is stasis dermatitis changes of the lower legs bilaterally General Skin Exam: no breakdown Neuro CN's II-XII intact bilaterally, moves all extremities, no focal motor deficits and no sensory deficits noted Sensorium / Orientation: awake, alert, oriented to person and oriented to place Speech: speech normal Psych Psych Narrative: Patient exhibits some confusion, he does not appear to be agitated Assessment & Plan Assessment/Plan (1) Physical debility: PLAN: Plan 1. Acute debility secondary to class III obesity and dementia-family wants the patient to be placed in a long term facility, we are awaiting pre-CERT #2 bacteriuria with Pseudomonas-patient was treated as an outpatient with Cipro,meropenem was stopped, I do not think he needs further treatment at this time #3 dementia-complicates care, management, recovery, and prognosis #4 stage IIIa chronic kidney disease-complicates care, management, recovery, andprognosis #5 class III obesity-complicates care, management, recovery, prognosis #6 type 2 diabetes-blood sugars will be monitored via fingerstick blood sugars, sliding scale insulin will be administered as indicated #7 hypothyroidism-patient is on Synthroid #8 lactic acidosis-etiology unclear #9 lower leg edema bilaterally with stasis dermatitis changes-I have elected to place the patient on Lasix 40 mg daily I do not feel the patient had acute cystitis or urinary tract infection on admission, I do not feel the patient had sepsis at this time or septic shock. Total clinical time spent by myself addressing the patient's medical issues, reviewing all of his data, and collaborating with patient's care team: 35 minutes Charges/Coding Visit Charges Inpatient E&M: 06870 Subs Hosp L2 10/18/24 170 <Electronically signed by John Rod DO> Cosigner Signature (if applicable): CC: ~ Signed [facility] Work Phone: 1(623) 257-827706-17-2025 Progress note [facility] Medical Records Department [address] [place] [address] Progress Note - Hospitalist 10/17/24 190 MR#: [id number] Acct: [id number] Name: CHARLI PORRAS Rep #:[id number] : 1950 74 From: John Rod DO PCP: ABHISHEK ST Status:[facility]M [facility] Reason for Visit Reason for Visit: Diagnoses Sepsis, unspecified organism (10/13/24) Acidosis, unspecified (10/13/24) Metabolic encephalopathy (10/13/24) Urinary tract infection, site not specified (10/13/24) Other malaise (10/13/24) Subjective Subjective Patient was seen and examined today I talked with his who was in the room at the time of my examination, I told her that I did not feel the patient had a urinary tract infection, she asked me what was causing his temperature before hecame in the hospital and I stated that he has not run a temperature since he hasbeen admitted. Patient was treated for a suspected UTI with Cipro, however, as of noted previously, there was only small numbers of Pseudomonas in his urine and I do not think thiswas a pathogen. I reduced the patient's gabapentin and Seroquel today to see if it would make him more alert. Objective Data Objective Data Vital Signs: Vital Signs Temp Pulse Resp BP Pulse Ox O2 Del Method 96.9 F L 81 16 147/83 H 95 Room Air 10/17/24 14:32 10/17/24 15:00 10/17/24 14:32 10/17/24 14:32 10/17/24 14:32 10/17/24 14:32 Oxygen Delivery Method Room Air Weight: 132.4 kg Body Mass Index (BMI) 43.1 Intake & Output: Intake and Output for Last 24 Hours 10/15/24 10/16/24 10/17/24 23:59 23:59 23:59 Intake Total 1740 / 1740 1440 / 1440 60 / 60 Output Total 1525 / 1525 2800 / 2800 1900 / 1900 Balance 215 / 215 -1360 / -1360 -1840 / -1840 Lab / Micro Data 10/14/24 04:02 10/14/24 04:02 Labs: Laboratory Results - last 24 hr 10/16/24 19:11: POC Glucose 152 H 10/16/24 21:38: POC Glucose 135 H 10/17/24 00:53: POC Glucose 166 H 10/17/24 06:49: POC Glucose 168 H 10/17/24 12:18: POC Glucose 186 H 10/17/24 16:45: POC Glucose 128 H Micro: Microbiology 10/13/24 22:00 Blood Culture (Wb) - Anticubital Left Blood Culture - Preliminary No growth in 48 hours. 10/13/24 22:00 Blood Culture (Wb) - Left Wrist Blood Culture - Preliminary No growth in 48 hours. 10/13/24 20:30 Urine, Clean Catch Urine Culture - Final Yeast, not Callie albicans Physical Exam Narrative alert and no apparent distress Constitutional Narrative: Patient has class III obesity General Appearance: cooperative, well kempt and well developed Orientation / Consciousness: awake, oriented to person and confused HEENT normocephalic, head/scalp atraumatic and moist oral mucous membranes Eyes PERRL, EOMs intact bilaterally and conjunctivae normal Neck supple, no JVD, thyroid normal and no carotid bruits General: trachea midline Resp normal respiratory effort, no retractions, no use of accessory muscles and clearto auscultation bilaterally Auscultation: Negative for rales, rhonchi or wheezes Cardio regular rate, regular rhythm, S1 normal heart sound, S2 normal heart sound, no murmurs, no rub and no gallops GI normal to inspection, nondistended, normoactive bowel sounds, soft to palpation,non-tender and non-distended Extremity normal to inspection and no clubbing, cyanosis, there is significant lower leg edema bilaterally with stasis dermatitis changes of the skin Skin There is stasis dermatitis changes of the lower legs bilaterally General Skin Exam: no breakdown Neuro CN's II-XII intact bilaterally, moves all extremities, no focal motor deficits and no sensory deficits noted Sensorium / Orientation: awake, alert, oriented to person and oriented to place Speech: speech normal Psych Psych Narrative: Patient exhibits some confusion, he does not appear to be agitated Assessment & Plan Assessment/Plan (1) Physical debility: PLAN: Plan 1. Acute debility secondary to class III obesity and dementia-family wants the patient to be placedin a long term facility, we are awaiting pre-CERT #2 bacteriuria with Pseudomonas-patient was treated as an outpatient with Cipro,meropenem was stopped, I do not think he needs further treatment at this time #3 dementia-complicates care, management, recovery, and prognosis #4 stage IIIa chronic kidney disease-complicates care, management, recovery, andprognosis #5 class III obesity-complicates care, management, recovery, prognosis #6 type 2 diabetes-blood sugars will be monitored via fingerstick blood sugars, sliding scale insulin will be administered as indicated #7 hypothyroidism-patient is on Synthroid #8 lactic acidosis-etiology unclear #9 lower leg edema bilaterally with stasis dermatitis changes-I have elected to place the patient on Lasix 40 mg daily I do not feel the patient had acute cystitis or urinary tract infection on admission, I do not feelthe patient had sepsis at this time or septic shock. Total clinical time spent by myself addressing the patient's medical issues, reviewing all of his data, and collaborating with patient's care team: 35 minutes Charges/Coding Visit Charges Inpatient E&M: 98214 Subs Hosp L2 10/18/24 5421 Cosigner Signature (if applicable): CC: ~ Signed [facility]06-15-2025 Progress note Author John Fitzgeraldwelia healthmanuel [facility] Note Date/Time October 16, 2024 12:3 7pm [facility] Medical Records Department [address] [place] [address] Progress Note - Hospitalist 10/16/24 1234 MR#: [id number] Acct: [id number] Name: CHARLI PORRAS Rep #:[id number] : 1950 74 From: John Rod DO PCP: ABHISHEK ST Status:ADM IN Location: [id number]- 1 Reason for Visit Reason for Visit: Diagnoses Sepsis, unspecified organism (10/13/24) Acidosis, unspecified (10/13/24) Metabolic encephalopathy (10/13/24) Urinary tract infection, site not specified (10/13/24) Other malaise (10/13/24) Subjective Subjective Patient was seen and examined today, he has no complaints to this examiner. Objective Data Objective Data Vital Signs: Vital Signs Temp Pulse Resp BP Pulse Ox O2 Del Method 97.8 F 76 18 144/64 H 94 Room Air 10/16/24 07:36 10/16/24 07:36 10/16/24 07:36 10/16/24 07:36 10/16/24 07:36 10/16/24 07:55 Oxygen Delivery Method Room Air Weight: 136.3 kg Body Mass Index (BMI) 44.4 Intake & Output: Intake and Output for Last 24 Hours 10/14/24 10/15/24 10/16/24 23:59 23:59 23:59 Intake Total 2700 / 2700 1740 / 1740 800 / 800 Output Total 2850 / 2850 1525 / 1525 750 / 750 Balance -150 / -150 215 / 215 50 / 50 Lab / Micro Data 10/14/24 04:02 10/14/24 04:02 Labs: Laboratory Results - last 24 hr 10/15/24 17:05: POC Glucose 138 H 10/15/24 21:45: POC Glucose 246 H 10/16/24 06:12: POC Glucose 178 H 10/16/24 11:41: POC Glucose 185 H Micro: Microbiology 10/13/24 22:00 Blood Culture (Wb) - Anticubital Left Blood Culture - Preliminary No growth in 48 hours. 10/13/24 22:00 Blood Culture (Wb) - Left Wrist Blood Culture - Preliminary No growth in 48 hours. 10/13/24 20:30 Urine, Clean Catch Urine Culture - Final Yeast, not Callie albicans Physical Exam Narrative alert and no apparent distress Constitutional Narrative: Patient has class III obesity General Appearance: cooperative, well kempt and well developed Orientation / Consciousness: awake, oriented to person and confused HEENT normocephalic, head/scalp atraumatic and moist oral mucous membranes Eyes PERRL, EOMs intact bilaterally and conjunctivae normal Neck supple, no JVD, thyroid normal and no carotid bruits General: trachea midline Resp normal respiratory effort, no retractions, no use of accessory muscles and clearto auscultation bilaterally Auscultation: Negative for rales, rhonchi or wheezes Cardio regular rate, regular rhythm, S1 normal heart sound, S2 normal heart sound, no murmurs, no rub and no gallops GI normal to inspection, nondistended, normoactive bowel sounds, soft to palpation,non-tender and non-distended Extremity normal to inspection and no clubbing, cyanosis, there is significant lower leg edema bilaterally with stasis dermatitis changes of the skin Skin There is stasis dermatitis changes of the lower legs bilaterally General Skin Exam: no breakdown Neuro CN's II-XII intact bilaterally, moves all extremities, no focal motor deficits and no sensory deficits noted Sensorium / Orientation: awake, alert, oriented to person and oriented to place Speech: speech normal Psych Psych Narrative: Patient exhibits some confusion, he does not appear to be agitated Assessment & Plan Assessment/Plan (1) Physical debility: PLAN: Plan 1. Acute debility secondary to class III obesity and dementia-family wants the patient to be placed in a long term facility, we are awaiting pre-CERT #2 bacteriuria with Pseudomonas-patient was treated as an outpatient with Cipro,meropenem today was stopped, I do not think he needs further treatment at this time #3 dementia-complicates care, management, recovery, and prognosis #4 stage IIIa chronic kidney disease-complicates care, management, recovery, andprognosis #5 class III obesity-complicates care, management, recovery, prognosis #6 type 2 diabetes-blood sugars will be monitored via fingerstick blood sugars, sliding scale insulin will be administered as indicated #7 hypothyroidism-patient is on Synthroid #8 lactic acidosis-etiology unclear #9 lower leg edema bilaterally with stasis dermatitis changes-I have elected to place the patient on Lasix 40 mg daily starting today I do not feel the patient had acute cystitis or urinary tract infection on admission, I do not feel the patient had sepsis at this time or septic shock. Total clinical time spent by myself addressing the patient's medical issues, reviewing all of his data, and collaborating with patient's care team: 35 minutes Charges/Coding Visit Charges Inpatient E&M: 14363 Subs Hosp L2 10/16/24 1237 <Electronically signed by John Rod DO> Cosigner Signature (if applicable): CC: ~ Signed [facility] Work Phone: 1(203) 498-211006-15-2025 Progress note [facility] Medical Records Department [address] [place] [address] Progress Note - Hospitalist 10/16/24 1234 MR#: [id number] Acct: [id number] Name: CHARLI PORRAS Rep #:[id number] : 1950 74 From: John Rod DO PCP: ABHISHEK ST Status:ADM IN [facility] Reason for Visit Reason for Visit: Diagnoses Sepsis, unspecified organism (10/13/24) Acidosis, unspecified (10/13/24) Metabolic encephalopathy (10/13/24) Urinary tract infection, site not specified (10/13/24) Other malaise (10/13/24) Subjective Subjective Patient was seen and examined today, he has no complaints to this examiner. Objective Data Objective Data Vital Signs: Vital Signs Temp Pulse Resp BP Pulse Ox O2 Del Method 97.8 F 76 18 144/64 H 94 Room Air 10/16/24 07:36 10/16/24 07:36 10/16/24 07:36 10/16/24 07:36 10/16/24 07:36 10/16/24 07:55 Oxygen Delivery Method Room Air Weight: 136.3 kg Body Mass Index (BMI) 44.4 Intake & Output: Intake and Output for Last 24 Hours 10/14/24 10/15/24 10/16/24 23:59 23:59 23:59 Intake Total 2700 / 2700 1740 / 1740 800 / 800 Output Total 2850 / 2850 1525 / 1525 750 / 750 Balance -150 / -150 215 / 215 50 / 50 Lab / Micro Data 10/14/24 04:02 10/14/24 04:02 Labs: Laboratory Results - last 24 hr 10/15/24 17:05: POC Glucose 138 H 10/15/24 21:45: POC Glucose 246 H 10/16/24 06:12: POC Glucose 178 H 10/16/24 11:41: POC Glucose 185 H Micro: Microbiology 10/13/24 22:00 Blood Culture (Wb) - Anticubital Left Blood Culture - Preliminary No growth in 48 hours. 10/13/24 22:00 Blood Culture (Wb) - Left Wrist Blood Culture - Preliminary No growth in 48 hours. 10/13/24 20:30 Urine, Clean Catch Urine Culture - Final Yeast, not Callie albicans Physical Exam Narrative alert and no apparent distress Constitutional Narrative: Patient has class III obesity General Appearance: cooperative, well kempt and well developed Orientation / Consciousness: awake, oriented to person and confused HEENT normocephalic, head/scalp atraumatic and moist oral mucous membranes Eyes PERRL, EOMs intact bilaterally and conjunctivae normal Neck supple, no JVD, thyroid normal and no carotid bruits General: trachea midline Resp normal respiratory effort, no retractions, no use of accessory muscles and clearto auscultation bilaterally Auscultation: Negative for rales, rhonchi or wheezes Cardio regular rate, regular rhythm, S1 normal heart sound, S2 normal heart sound, no murmurs, no rub and no gallops GI normal to inspection, nondistended, normoactive bowel sounds, soft to palpation,non-tender and non-distended Extremity normal to inspection and no clubbing, cyanosis, there is significant lower leg edema bilaterally with stasis dermatitis changes of the skin Skin There is stasis dermatitis changes of the lower legs bilaterally General Skin Exam: no breakdown Neuro CN's II-XII intact bilaterally, moves all extremities, no focal motor deficits and no sensory deficits noted Sensorium / Orientation: awake, alert, oriented to person and oriented to place Speech: speech normal Psych Psych Narrative: Patient exhibits some confusion, he does not appear to be agitated Assessment & Plan Assessment/Plan (1) Physical debility: PLAN: Plan 1. Acute debility secondary to class III obesity and dementia-family wants the patient to be placedin a long term facility, we are awaiting pre-CERT #2 bacteriuria with Pseudomonas-patient was treated as an outpatient with Cipro,meropenem today wasstopped, I do not think he needs further treatment at this time #3 dementia-complicates care, management, recovery, and prognosis #4 stage IIIa chronic kidney disease-complicates care, management, recovery, andprognosis #5 class III obesity-complicates care, management, recovery, prognosis #6 type 2 diabetes-blood sugars will be monitored via fingerstick blood sugars, sliding scale insulin will be administered as indicated #7 hypothyroidism-patient is on Synthroid #8 lactic acidosis-etiology unclear #9 lower leg edema bilaterally with stasis dermatitis changes-I have elected to place the patient on Lasix 40 mg daily starting today I do not feel the patient had acute cystitis or urinary tract infection on admission, I do not feelthe patient had sepsis at this time or septic shock. Total clinical time spent by myself addressing the patient's medical issues, reviewing all of his data, and collaborating with patient's care team: 35 minutes Charges/Coding Visit Charges Inpatient E&M: 59422 Subs Hosp L2 10/16/24 1237 Cosigner Signature (if applicable): CC: ~ Signed [facility]06-14-2025 Progress note Author John Rod [facility] Note Date/Time October 15, 2024 5:18 pm [facility] Medical Records Department [address] [place] [address] Progress Note - Hospitalist 10/15/24 1714 MR#: [id number] Acct: [id number] Name: CHARLI PORRAS Rep #:[id number] : 1950 74 From: John Rod DO PCP: ABHISHEK ST Status:ADM IN [facility] Reason for Visit Reason for Visit: Diagnoses Sepsis, unspecified organism (10/13/24) Acidosis, unspecified (10/13/24) Metabolic encephalopathy (10/13/24) Urinary tract infection, site not specified (10/13/24) Subjective Subjective Patient was seen and examined today, physical therapy has the patient up and walking a few steps in the [place]. Patient's urine grew out yeast, I made the decision to stop his meropenem. Objective Data Objective Data Vital Signs: Vital Signs Temp Pulse Resp BP Pulse Ox O2 Del Method 97.8 F 76 14 141/74 H 95 Room Air 10/15/24 14:17 10/15/24 14:17 10/15/24 14:17 10/15/24 14:17 10/15/24 14:17 10/15/24 14:23 Oxygen Delivery Method Room Air Weight: 131.1 kg Body Mass Index (BMI) 42.7 Intake & Output: Intake and Output for Last 24 Hours 10/13/24 10/14/24 10/15/24 23:59 23:59 23:59 Intake Total 1000 / 1000 2700 / 2700 1040 / 1040 Output Total 2850 / 2850 1325 / 1325 Balance 1000 / 1000 -150 / -150 -285 / -285 Lab / Micro Data 10/14/24 04:02 10/14/24 04:02 Labs: Laboratory Results - last 24 hr 10/14/24 21:29: POC Glucose 135 H 10/15/24 06:38: POC Glucose 109 H 10/15/24 11:26: POC Glucose 129 H Micro: Microbiology 10/13/24 20:30 Urine, Clean Catch Urine Culture - Preliminary Yeast Physical Exam Narrative alert and no apparent distress Constitutional Narrative: Patient has class III obesity General Appearance: cooperative, well kempt and well developed Orientation / Consciousness: awake, oriented to person and confused HEENT normocephalic, head/scalp atraumatic and moist oral mucous membranes Eyes PERRL, EOMs intact bilaterally and conjunctivae normal Neck supple, no JVD, thyroid normal and no carotid bruits General: trachea midline Resp normal respiratory effort, no retractions, no use of accessory muscles and clearto auscultation bilaterally Auscultation: Negative for rales, rhonchi or wheezes Cardio regular rate, regular rhythm, S1 normal heart sound, S2 normal heart sound, no murmurs, no rub and no gallops GI normal to inspection, nondistended, normoactive bowel sounds, soft to palpation,non-tender and non-distended Extremity normal to inspection and no clubbing, cyanosis or edema Skin no rashes or lesions noted General Skin Exam: no breakdown Neuro CN's II-XII intact bilaterally, moves all extremities, no focal motor deficits and no sensory deficits noted Sensorium / Orientation: awake, alert, oriented to person and oriented to place Speech: speech normal Psych Psych Narrative: Patient exhibits some confusion, he does not appear to be agitated Assessment & Plan Assessment/Plan (1) Physical debility: PLAN: Plan 1. Acute debility secondary to class III obesity and dementia-family wants the patient to be placed in a long term facility, we are awaiting pre-CERT #2 bacteriuria with Pseudomonas-patient was treated as an outpatient with Cipro,meropenem today was stopped #3 dementia-complicates care, management, recovery, and prognosis #4 stage IIIa chronic kidney disease-complicates care, management, recovery, andprognosis #5 class III obesity-complicates care, management, recovery, prognosis #6 type 2 diabetes-blood sugars will be monitored via fingerstick blood sugars, sliding scale insulin will be administered as indicated #7 hypothyroidism-patient is on Synthroid #8 lactic acidosis-etiology unclear I do not feel the patient had acute cystitis or urinary tract infection on admission, I do not feel the patient had sepsis at this time or septic shock. Total clinical time spent by myself addressing the patient's medical issues, reviewing all of his data, and collaborating with patient's care team: 35 minutes Charges/Coding Visit Charges Inpatient E&M: 85417 Subs Hosp L2 10/15/24 1718 <Electronically signed by John Rod DO> Cosigner Signature (if applicable): CC: ~ Signed [facility] Work Phone: 1(931) 269-579106-14-2025 Progress note [facility] Medical Records Department [address] [place] [address] Progress Note - Hospitalist 10/15/24 171 MR#: [id number] Acct: [id number] Name: CHARLI PORRAS Rep #:[id number] : 1950 74 From: John Rod DO PCP: ABHISHEK ST Status:ADM IN Location: [place] [address] Reason for Visit Reason for Visit: Diagnoses Sepsis, unspecified organism (10/13/24) Acidosis, unspecified (10/13/24) Metabolic encephalopathy (10/13/24) Urinary tract infection, site not specified (10/13/24) Subjective Subjective Patient was seen and examined today, physical therapy has the patient up and walking a few steps inthe [place]. Patient's urine grew out yeast, I made the decision to stop his meropenem. Objective Data Objective Data Vital Signs: Vital Signs Temp Pulse Resp BP Pulse Ox O2 Del Method 97.8 F 76 14 141/74 H 95 Room Air 10/15/24 14:17 10/15/24 14:17 10/15/24 14:17 10/15/24 14:17 10/15/24 14:17 10/15/24 14:23 Oxygen Delivery Method Room Air Weight: 131.1 kg Body Mass Index (BMI) 42.7 Intake & Output: Intake and Output for Last 24 Hours 10/13/24 10/14/24 10/15/24 23:59 23:59 23:59 Intake Total 1000 / 1000 2700 / 2700 1040 / 1040 Output Total 2850 / 2850 1325 / 1325 Balance 1000 / 1000 -150 / -150 -285 / -285 Lab / Micro Data 10/14/24 04:02 10/14/24 04:02 Labs: Laboratory Results - last 24 hr 10/14/24 21:29: POC Glucose 135 H 10/15/24 06:38: POC Glucose 109 H 10/15/24 11:26: POC Glucose 129 H Micro: Microbiology 10/13/24 20:30 Urine, Clean Catch Urine Culture - Preliminary Yeast Physical Exam Narrative alert and no apparent distress Constitutional Narrative: Patient has class III obesity General Appearance: cooperative, well kempt and well developed Orientation / Consciousness: awake, oriented to person and confused HEENT normocephalic, head/scalp atraumatic and moist oral mucous membranes Eyes PERRL, EOMs intact bilaterally and conjunctivae normal Neck supple, no JVD, thyroid normal and no carotid bruits General: trachea midline Resp normal respiratory effort, no retractions, no use of accessory muscles and clearto auscultation bilaterally Auscultation: Negative for rales, rhonchi or wheezes Cardio regular rate, regular rhythm, S1 normal heart sound, S2 normal heart sound, no murmurs, no rub and no gallops GI normal to inspection, nondistended, normoactive bowel sounds, soft to palpation,non-tender and non-distended Extremity normal to inspection and no clubbing, cyanosis or edema Skin no rashes or lesions noted General Skin Exam: no breakdown Neuro CN's II-XII intact bilaterally, moves all extremities, no focal motor deficits and no sensory deficits noted Sensorium / Orientation: awake, alert, oriented to person and oriented to place Speech: speech normal Psych Psych Narrative: Patient exhibits some confusion, he does not appear to be agitated Assessment & Plan Assessment/Plan (1) Physical debility: PLAN: Plan 1. Acute debility secondary to class III obesity and dementia-family wants the patient to be placedin a long term facility, we are awaiting pre-CERT #2 bacteriuria with Pseudomonas-patient was treated as an outpatient with Cipro,meropenem today wasstopped #3 dementia-complicates care, management, recovery, and prognosis #4 stage IIIa chronic kidney disease-complicates care, management, recovery, andprognosis #5 class III obesity-complicates care, management, recovery, prognosis #6 type 2 diabetes-blood sugars will be monitored via fingerstick blood sugars, sliding scale insulin will be administered as indicated #7 hypothyroidism-patient is on Synthroid #8 lactic acidosis-etiology unclear I do not feel the patient had acute cystitis or urinary tract infection on admission, I do not feelthe patient had sepsis at this time or septic shock. Total clinical time spent by myself addressing the patient's medical issues, reviewing all of his data, and collaborating with patient's care team: 35 minutes Charges/Coding Visit Charges Inpatient E&M: 19732 Subs Hosp L2 10/15/24 7878 Cosigner Signature (if applicable): CC: ~ Signed [facility]06-13-2025 Progress note Author John Rod [facility] Note Date/Time October 14, 2024 6:55 pm [facility] Medical Records Department [address] [place] [address] Progress Note - Hospitalist 10/14/241835 MR#: [id number] Acct: [id number] Name: CHARLI PORRAS Rep #:[id number] : 1950 74 From: John Rod DO PCP: ABHISHEK ST Status:ADM IN Location: [place] [address]- 1 Reason for Visit Reason for Visit: Diagnoses Sepsis, unspecified organism (10/13/24) Acidosis, unspecified (10/13/24) Metabolic encephalopathy (10/13/24) Urinary tract infection, site not specified (10/13/24) Subjective Subjective Patient was seen and examined today, he is a poor informant, I reviewed his problem list and he does have a history of dementia. According to case management, patient's family wants him placed in a long term facility. I obtained the patient's urine culture which was collected on 10/10/2024, it grew out low numbers of Pseudomonas aeruginosa that was sensitive to a wide variety of antibiotics including the quinolones. Lab obtained at the same time showed anormal white blood cell count and a creatinine of 1.72. Glucose was 183 Objective Data Objective Data Vital Signs: Vital Signs Temp Pulse Resp BP Pulse Ox O2 Del Method 97.8 F 97 16 130/85 H 97 Room Air 10/14/24 14:34 10/14/24 14:34 10/14/24 14:34 10/14/24 14:34 10/14/24 14:34 10/14/24 14:34 Oxygen Delivery Method Room Air Weight: 138.7 kg Body Mass Index (BMI) 45.1 Intake & Output: Intake and Output for Last 24 Hours 10/12/24 10/13/24 10/14/24 23:59 23:59 23:59 Intake Total 1000 / 1000 2219 Output Total 2049 Balance 1000 / 999 170 / 170 Lab / Micro Data 10/14/24 04:02 10/14/24 04:02 Labs: Laboratory Results - last 24 hr 10/13/24 20:33: WBC 8.1, RBC 4.59 L, Hgb 14.0, Hct 42.8, MCV 93.2, MCH 30.5, MCHC 32.7, RDW Std Deviation 50.2 H, RDW Coeff of Veronica 14.6, Plt Count 142 L, MPV9.1, Immature Gran % (Auto) 1.000 H, Neut % (Auto) 67.1, Lymph % (Auto) 21.5, Schuyler % (Auto) 6.6, Eos % (Auto) 2.9, Baso % (Auto) 0.9, Absolute Neuts (auto) 5.5, Absolute Lymphs (auto) 1.75, Nucleated RBC % 0, Sodium 135, Potassium 4.3, Chloride 101, Carbon Dioxide 19.3 L, Anion Gap 15, BUN 21 H, Creatinine 1.96 H, Estim Creat Clear Calc 44.76 L, Est GFR (MDRD) Non-Af 35 L, BUN/Creatinine Ratio10.7, Glucose 239 H, Lactic Acid 3.7 H*, Calcium 8.9, Urine Color Yellow, Urine Clarity Turbid, Urine pH 6.0, Ur Specific [place] 1.020, Urine Protein 100 H, Urine Glucose (UA) 1000 H, Urine Ketones Negative, Urine Occult Blood 150 H, Urine Nitrite Negative, Urine Bilirubin Negative, Urine Urobilinogen Normal, Ur Leukocyte Esterase 500 H, Urine RBC 0 SEEN, Urine WBC >100 SEEN, Ur Squamous Epith Cells 0 SEEN, Urine Bacteria 0 SEEN, Urine Mucus 0 SEEN 10/14/24 01:08: Lactic Acid 1.6 10/14/24 04:02: WBC 6.2, RBC 4.36 L, Hgb 13.2, Hct 40.9, MCV 93.8, MCH 30.3, MCHC 32.3, RDW Std Deviation 50.6 H, RDW Coeff of Veronica 14.6, Plt Count 117 L, MPV9.4, Immature Gran % (Auto) 1.300 H, Neut % (Auto) 61.0, Lymph % (Auto) 26.1, Schuyler % (Auto) 7.8, Eos % (Auto) 3.2, Baso % (Auto) 0.6, Absolute Neuts (auto) 3.8, Absolute Lymphs (auto) 1.61, Nucleated RBC % 0, Sodium 136, Potassium 4.3, Chloride 105, Carbon Dioxide 19.8 L, Anion Gap 12, BUN 19, Creatinine 1.63 H, Estim Creat Clear Calc 54.22, Est GFR (MDRD) Non-Af 44 L, BUN/Creatinine Ratio 11.8, Glucose 128 H, Calcium 8.4, Phosphorus 2.9, Magnesium 1.9, Total Bilirubin0.50, AST 27, ALT 14, Alkaline Phosphatase 76, Total Protein 6.8, Albumin 3.4, Globulin 3.4, Albumin/Globulin Ratio 1.0 10/14/24 06:09: POC Glucose 114 H 10/14/24 11:13: POC Glucose 168 H 10/14/24 16:21: POC Glucose 171 H Radiography Diagnostic Testing: Radiology Impression Abdomen/Pelvis CT 10/13/24 21:33 IMPRESSION: Urinary bladder wall thickening which may represent detrusor muscle hypertrophy or cystitis. Correlate with urinalysis. Dense colonic stool which may suggest constipation. IVC filter. If not actively managed by Interventional Radiology, consider consult. Reading Location: [place] [address] Physical Exam Const alert and no apparent distress Constitutional Narrative: Patient has class III obesity General Appearance: cooperative, well kempt and well developed Orientation / Consciousness: awake, oriented to person and confused HEENT normocephalic, head/scalp atraumatic and moist oral mucous membranes Eyes PERRL, EOMs intact bilaterally and conjunctivae normal Neck supple, no JVD, thyroid normal and no carotid bruits General: trachea midline Resp normal respiratory effort, no retractions, no use of accessory muscles and clearto auscultation bilaterally Auscultation: Negative for rales, rhonchi or wheezes Cardio regular rate, regular rhythm, S1 normal heart sound, S2 normal heart sound, no murmurs, no rub and no gallops GI normal to inspection, nondistended, normoactive bowel sounds, soft to palpation,non-tender and non-distended Extremity normal to inspection and no clubbing, cyanosis or edema Skin no rashes or lesions noted General Skin Exam: no breakdown Neuro CN's II-XII intact bilaterally, moves all extremities, no focal motor deficits and no sensory deficits noted Sensorium / Orientation: awake, alert, oriented to person and oriented to place Speech: speech normal Psych Psych Narrative: Patient exhibits some confusion, he does not appear to be agitated Assessment & Plan Assessment/Plan (1) UTI (urinary tract infection): PLAN: Plan 1. Bacteriuria with Pseudomonas-low numbers of organisms were noted-patient willremain on meropenem until the urine culture this admission is resulted #2 dementia-complicates care, management, recovery, and prognosis #3 stage IIIa chronic kidney disease-complicates care, management, recovery, andprognosis #4 class III obesity-complicates care, management, recovery, and prognosis #5 hypothyroidism-patient is on Synthroid #6 type 2 diabetes-fingerstick blood sugars will be monitored, sliding scale insulin will be given #7 acute debility-patient will be seen by PT and OT, family has requested placement in a long term facility #8 lactic acidosis-corrected at this time I do not feel the patient has sepsis at this time or septic shock, I am not surewhat caused the patient's lactic acidosis. Total clinical time spent by myself addressing the patient's medical issues, reviewing all of his data, and collaborating with the patient's care team: 50 minutes Charges/Coding Visit Charges Inpatient E&M: 43324 Subs Hosp L3 10/14/24 1859 <Electronically signed by John Rod DO> Cosigner Signature (if applicable): CC: ~ Signed [facility] Work Phone: 1(730) 694-310306-13-2025 Progress note [facility] Medical Records Department [address] [place] [address] Progress Note - Hospitalist 10/14/24 183 MR#: [id number] Acct: [id number] Name: WARDELLIOTTLARRYCHARLI Vásquez Jagjit Rep #:[id number] : 1950 74 From: John Viola MARCOS PCP: ABHISHEK ST Status:ADM IN Location: [facility] [id number] Reason for Visit Reason for Visit: Diagnoses Sepsis, unspecified organism (10/13/24) Acidosis, unspecified (10/13/24) Metabolic encephalopathy (10/13/24) Urinary tract infection, site not specified (10/13/24) Subjective Subjective Patient was seen and examined today, he is a poor informant, I reviewed his problem list and he does have a history of dementia. According to case management, patient's family wants him placed in a long term facility. I obtained the patient's urine culture which was collected on 10/10/2024, it grew out low numbers of Pseudomonas aeruginosa that was sensitive to a wide variety of antibiotics including the quinolones. Lab obtained at the same time showed anormal white blood cell count and a creatinine of 1.72. Glucose was 183 Objective Data Objective Data Vital Signs: Vital Signs Temp Pulse Resp BP Pulse Ox O2 Del Method 97.8 F 97 16 130/85 H 97 Room Air 10/14/24 14:34 10/14/24 14:34 10/14/24 14:34 10/14/24 14:34 10/14/24 14:34 10/14/24 14:34 Oxygen Delivery Method Room Air Weight: 138.7 kg Body Mass Index (BMI) 45.1 Intake & Output: Intake and Output for Last 24 Hours 10/12/24 10/13/24 10/14/24 23:59 23:59 23:59 Intake Total 1000 / 1000 2220 / 2220 Output Total 2049 / 2049 Balance 1000 / 1000 170 / 170 Lab / Micro Data 10/14/24 04:02 10/14/24 04:02 Labs: Laboratory Results - last 24 hr 10/13/24 20:33: WBC 8.1, RBC 4.59 L, Hgb 14.0, Hct 42.8, MCV 93.2, MCH 30.5, MCHC 32.7, RDW Std Deviation 50.2 H, RDW Coeff of Veronica 14.6, Plt Count 142 L, MPV9.1, Immature Gran % (Auto) 1.000 H, Neut % (Auto) 67.1, Lymph % (Auto) 21.5, Schuyler % (Auto) 6.6, Eos % (Auto) 2.9, Baso % (Auto) 0.9, AbsoluteNeuts (auto) 5.5, Absolute Lymphs (auto) 1.75, Nucleated RBC % 0, Sodium 135, Potassium 4.3, Chloride 101, Carbon Dioxide 19.3 L, Anion Gap 15, BUN 21 H, Creatinine 1.96 H, Estim Creat Clear Calc 44.76 L, Est GFR (MDRD) Non-Af 35 L, BUN/Creatinine Ratio10.7, Glucose 239 H, Lactic Acid 3.7 H*, Calcium 8.9, Urine Color Yellow, Urine Clarity Turbid, Urine pH 6.0, Ur Specific [place] 1.020, Urine Protein 100 H, Urine Glucose (UA) 1000 H, Urine Ketones Negative, Urine Occult Blood 150 H, Urine Nitrite Negative, Urine Bilirubin Negative, Urine Urobilinogen Normal, Ur Leukocyte Esterase 500 H, UrineRBC 0 SEEN, Urine WBC >100 SEEN, Ur Squamous Epith Cells 0 SEEN, Urine Bacteria 0 SEEN, Urine Mucus 0 SEEN 10/14/24 01:08: Lactic Acid 1.6 10/14/24 04:02: WBC 6.2, RBC 4.36 L, Hgb 13.2, Hct 40.9, MCV 93.8, MCH 30.3, MCHC 32.3, RDW Std Deviation 50.6 H, RDW Coeff of Veronica 14.6, Plt Count 117 L, MPV9.4, Immature Gran % (Auto) 1.300 H, Neut % (Auto) 61.0, Lymph % (Auto) 26.1, Schuyler % (Auto) 7.8, Eos % (Auto) 3.2, Baso % (Auto) 0.6, AbsoluteNeuts (auto) 3.8, Absolute Lymphs (auto) 1.61, Nucleated RBC % 0, Sodium 136, Potassium 4.3, Chloride 105, Carbon Dioxide 19.8 L, Anion Gap 12, BUN 19, Creatinine 1.63 H, Estim Creat Clear Calc 54.22, Est GFR (MDRD) Non-Af 44 L, BUN/Creatinine Ratio 11.8, Glucose 128 H, Calcium 8.4, Phosphorus 2.9,Magnesium 1.9, Total Bilirubin0.50, AST 27, ALT 14, Alkaline Phosphatase 76, Total Protein 6.8, [place] min 3.4, Globulin 3.4, Albumin/Globulin Ratio 1.0 10/14/24 06:09: POC Glucose 114 H 10/14/24 11:13: POC Glucose 168 H 10/14/24 16:21: POC Glucose 171 H Radiography Diagnostic Testing: Radiology Impression Abdomen/Pelvis CT 10/13/24 21:33 IMPRESSION: Urinary bladder wall thickening which may represent detrusor muscle hypertrophy or cystitis. Correlate with urinalysis. Dense colonic stool which may suggest constipation. IVC filter. If not actively managed by Interventional Radiology, consider consult. Reading Location: [place] [address] Physical Exam Const alert and no apparent distress Constitutional Narrative: Patient has class III obesity General Appearance: cooperative, well kempt and well developed Orientation / Consciousness: awake, oriented to person and confused HEENT normocephalic, head/scalp atraumatic and moist oral mucous membranes Eyes PERRL, EOMs intact bilaterally and conjunctivae normal Neck supple, no JVD, thyroid normal and no carotid bruits General: trachea midline Resp normal respiratory effort, no retractions, no use of accessory muscles and clearto auscultation bilaterally Auscultation: Negative for rales, rhonchi or wheezes Cardio regular rate, regular rhythm, S1 normal heart sound, S2 normal heart sound, no murmurs, no rub and no gallops GI normal to inspection, nondistended, normoactive bowel sounds, soft to palpation,non-tender and non-distended Extremity normal to inspection and no clubbing, cyanosis or edema Skin no rashes or lesions noted General Skin Exam: no breakdown Neuro CN's II-XII intact bilaterally, moves all extremities, no focal motor deficits and no sensory deficits noted Sensorium / Orientation: awake, alert, oriented to person and oriented to place Speech: speech normal Psych Psych Narrative: Patient exhibits some confusion, he does not appear to be agitated Assessment & Plan Assessment/Plan (1) UTI (urinary tract infection): PLAN: Plan 1. Bacteriuria with Pseudomonas-low numbers of organisms were noted-patient willremain on meropenemuntil the urine culture this admission is resulted #2 dementia-complicates care, management, recovery, and prognosis #3 stage IIIa chronic kidney disease-complicates care, management, recovery, andprognosis #4 class III obesity-complicates care, management, recovery, and prognosis #5 hypothyroidism-patient is on Synthroid #6 type 2 diabetes-fingerstick blood sugars will be monitored, sliding scale insulin will be given #7 acute debility-patient will be seen by PT and OT, family has requested placement in a long term facility #8 lactic acidosis-corrected at this time I do not feel the patient has sepsis at this time or septic shock, I am not surewhat caused the patient's lactic acidosis. Total clinical time spent by myself addressing the patient's medical issues, reviewing all of his data, and collaborating with the patient's care team: 50 minutes Charges/Coding Visit Charges Inpatient E&M: 11446 Subs Hosp L3 10/14/24 7483 Cosigner Signature (if applicable): CC: ~ Signed [facility]06-13-2025 History and physical note Author Bisi Rivera [facility] Note Date/Time October 14, 2024 1:54 am [facility] Medical Records Department [address] [place] [address] H&P Exam - Hospitalist 10/13/24 2304 MR#: [id number] Acct: [id number] Name: CHARLI PORRAS Rep #:[id number] : 1950 74 From: Bisi Rivera DO PCP: ABHISHEK ST Status:ADM IN Location: [place] [address] HPI - General General Date of Admission: 10/13/24 Date of Service: 10/13/24 Chief Complaint: Altered mental status with recent UTI diagnosis HPI Narrative CHARLI PORRAS, is a 74 M who presented to the emergency department at [facility] on 10/13/2024 with his due to altered mental status. Patient was recently diagnosed with urinary tract infection and placed on outpatient ciprofloxacin. He was evaluated by his PCP several days ago and was placed on ciprofloxacin at that time. His indicated that she felt his fevers had improved but he relapsed today and is having intermittent altered mental status and hallucinations as well as some generalized weakness. Patient is did show the ER physician a text message which demonstrated Pseudomonas however sensitivities were not identified at that time. Patient states he has been urinating and eating and drinking okay. Denies any nausea or vomiting. Patient is relatively bedbound at baseline. He denies wearing CPAP nocturnally. Vital signs on presentation showed a temperature of 98, heart rate 84, respiratory 16, blood pressure 116/60 and pulse ox is 97% on room air. CBC on presentation shows a normal white count with no anemia. There is no left shift. His CO2 is less than 20 and his BUN is 20 one of his serum creatinine of 1.96 (baseline fluctuates but lately has been between 1.4 and 1.9). Glucose was 239 and lactic acid was 3.7. His UA is suggestive of infection and dehydration withspecific gravity of 1.02 he has occult blood, leuk esterase, white cells but no bacteria present however he has been on antibiotics as noted above. CT of the abdomen pelvis was performed and shows urinary bladder wall thickening, dense colonic stool and an IVC filter. He was given IV fluids and placed on Zosyn x 1 dose. He does meet sepsis criteria with an elevated lactic acid and the low serum bicarb with altered mental status so sepsis protocol was initiated with conservative fluid bolus given concern [facility] volume overload[facility] History CKD (chronic kidney disease), stage III Insulin dependent diabetes mellitus Dementia Kidney disease Gout Dementia Diabetes HTN (hypertension) Home Medications ?Medication ?Instructions ?Recorded ?Last Taken ?Type allopurinol 100 mg tablet 100 mg PO DAILYCM 05/03/13 U nknown History gabapentin 800 mg tablet 800 mg PO TIDCM 05/03/13 Unk nown History xwziwbem-cwj-uedcu acid 0.4 1 ea PO DAILY 05/03/13 Unk nown History mg-lycopene 300 mcg-lutein 250 mcg tablet (Centrum Silver) donepezil 10 mg tablet 10 mg PO [...] PO DAILY Unknown History release 24 hr levothyroxine 50 mcg tablet 50 mcg PO DAILY 03/18/24 U nknown History lisinopril 2.5 mg tablet 2.5 mg PO DAILY 03/18/24 Unk nown History pramipexole 0.125 mg tablet 0.125 mg PO BID 03/18/24 U nknown History quetiapine 50 mg tablet 50 mg PO DAILY 03/18/24 Unkn own History tramadol 50 mg tablet 50 mg PO 4X/DAY pain 4 Unknown History cefdinir 300 mg capsule 300 mg PO BID 4 days #8 caps 08/23/24 Unknown Rx tizanidine 2 mg tablet 4 mg (2 x 2 mg) PO QPM PRN m uscle 08/23/24 Unknown Rx spasms #0 tabs trazodone 50 mg tablet 50 mg PO DAILY@1700 #0 tabs 08/23/24 Unknown Rx trazodone 50 mg tablet 50 mg PO QHS #0 tabs 5 Unknown Rx insulin glargine 100 unit/mL (3 75 unit subcut QPM 04/27 Unknown History mL) subcutaneous pen (Basaglar KwikPen U-100 Insulin) Allergy/AdvReac Type Severity Reaction Status Date / Time ibuprofen AdvReac Abd Verified 10/13/24 17:49 cramps/diarrhea unable to obtain Surgical History History of left shoulder replacement H/O knee surgery Social History (Updated 10/14/24 @ 01:[address] Bisi Rivera DO) household members: spouse housing: house current occupational status: retired Smoking Status: Never smoker alcohol intake: never substance use type: does not use ROS Constitutional Constitutional: Reports fatigue and weakness; Denies anorexia, change in weight,chills, fever(s), malaise, night sweats or other Eyes Eyes: Denies blurry vision, change in eye color, change in vision, discharge from eye(s), double vision, erythema, eye pain, loss of vision or other ENT HEENT: Denies abnormal hearing, dysphagia, ear pain, epistaxis, headache(s), hearing loss, nasal congestion, nasal discharge, post nasal drip, sinus pressure, sore throat or other Cardiovascular Cardiovascular: Denies chest pain, claudication, dyspnea on exertion, edema, lightheadedness, orthopnea, palpitations, paroxysmal nocturnal dyspnea, rapid heart rate, syncope or other Respiratory/Chest Respiratory/Chest: Denies cough, dyspnea, excessive phlegm production, hemoptysis, productive cough, shortness of breath at rest, shortness of breath with exertion, wheezing or other Gastrointestinal Gastrointestinal: Denies abdominal pain, coffee ground emesis, constipation, diarrhea, dyspepsia, hematemesis, hematochezia, loose stools, melena, nausea, vomiting or other Genitourinary Genitourinary: Denies burning urination, difficulty urinating, dysuria, hematuria, nocturia, urinary frequency, urinary hesitancy, urinary incontinence,urinary urgency or other Musculoskeletal Musculoskeletal: Reports back pain; Denies arthralgias, joint pain, joint stiffness, joint swelling, myalgias, neck pain or other Neurologic Neurologic: Reports confusion; Denies abnormal gait, abnormal speech, disequilibrium, dizziness, focal weakness, headache(s), numbness, paresthesias, seizure-like activity, seizures, syncope, tingling, tremor(s) or other Psychiatric Psychiatric: Denies anxiety, depression, homicidal ideation, suicidal ideation or other Endocrine Endocrinology: Denies change in body appearance, cold intolerance, excessive sweating, heat intolerance, polydipsia, polyuria or other Hematologic/Lymphatic Hematologic/Lymphatic: Denies anemia, easy bleeding, easy bruising, lymphadenopathy or other Allergic/Immunologic Allergic/Immunologic: Denies rhinitis, hives, eczemia, asthma or other Vital Signs Vital Signs Vital Signs: 10/13/24 17:47 10/13/24 20:29 10/13/24 21:00 Temperature 98 F 97.6 F L 97.8 F Temperature Source Oral Oral Oral Pulse Rate 84 87 73 Respiratory Rate 16 18 16 Blood Pressure 116/60 114/71 137/72 H Blood Pressure Mean 78 85 93 Pulse Ox 97 96 96 Oxygen Delivery Method Room Air Room Air Room Air 10/13/24 22:00 10/13/24 23:00 Temperature 97.4 F L 97.9 F Temperature Source Oral Oral Pulse Rate 89 70 Respiratory Rate 14 12 Blood Pressure 135/62 H 136/68 H Blood Pressure Mean 86 90 Pulse Ox 95 95 Oxygen Delivery Method Room Air Room Air Weight Weight: 136.9 kg Body Mass Index (BMI) 44.5 Physical Exam Const alert, no apparent distress and well nourished; Negative for oriented x3, average body habitus or healthy appearing Constitutional Narrative: Morbidly obese, white male, lying in bed, appears comfortable, oriented to self and place but not time General Appearance: cooperative HEENT normocephalic, head/scalp atraumatic, hearing grossly normal bilaterally and moist oral mucous membranes HEENT Narrative: Mallampati is 4, no thrush, edentulous Eyes conjunctivae normal Eyes Narrative: No scleral icterus Neck supple Neck Narrative: Neck is short and thick, trachea midline Resp normal respiratory effort, no retractions and clear to auscultation bilaterally Resp Narrative: Diminished diffusely with difficult exam due to body habitus Auscultation: Negative for rales, rhonchi or wheezes Cardio regular rate, regular rhythm, S1 normal heart sound, S2 normal heart sound, no murmurs, no rub, no gallops and no clicks Cardio Narrative: Distant due to body habitus GI normal to inspection, nondistended, normoactive bowel sounds, soft to palpation and non-tender GI Narrative: Large protuberant abdomen, umbilical hernia noted Extremity Extremity Narrative: Chronic bilateral lower extremity edema trace to 1+, no cyanosis or clubbing Skin skin turgor normal, no jaundice, no petechiae and no mottling Skin Narrative: Skin bilateral lower extremities consistent with chronic venous stasis Neuro moves all extremities and no focal motor deficits Neuro Narrative: Severe generalized weakness and marked mobility limitations Speech: speech normal Psych Psych Narrative: Pleasant with mild confusion, appears calm Results Lab / Micro Data 10/13/24 20:33 10/13/24 20:33 Labs: Laboratory Results - last 24 hr 10/13/24 20:33: WBC 8.1, RBC 4.59 L, Hgb 14.0, Hct 42.8, MCV 93.2, MCH 30.5, MCHC 32.7, RDW Std Deviation 50.2 H, RDW Coeff of Veronica 14.6, Plt Count 142 L, MPV9.1, Immature Gran % (Auto) 1.000 H, Neut % (Auto) 67.1, Lymph % (Auto) 21.5, Schuyler % (Auto) 6.6, Eos % (Auto) 2.9, Baso % (Auto) 0.9, Absolute Neuts (auto) 5.5, Absolute Lymphs (auto) 1.75, Nucleated RBC % 0, Sodium 135, Potassium 4.3, Chloride 101, Carbon Dioxide 19.3 L, Anion Gap 15, BUN 21 H, Creatinine 1.96 H, Estim Creat Clear Calc 44.76 L, Est GFR (MDRD) Non-Af 35 L, BUN/Creatinine Ratio10.7, Glucose 239 H, Lactic Acid 3.7 H*, Calcium 8.9, Urine Color Yellow, Urine Clarity Turbid, Urine pH 6.0, Ur Specific [place] 1.020, Urine Protein 100 H, Urine Glucose (UA) 1000 H, Urine Ketones Negative, Urine Occult Blood 150 H, Urine Nitrite Negative, Urine Bilirubin Negative, Urine Urobilinogen Normal, Ur Leukocyte Esterase 500 H, Urine RBC 0 SEEN, Urine WBC >100 SEEN, Ur Squamous Epith Cells 0 SEEN, Urine Bacteria 0 SEEN, Urine Mucus 0 SEEN Imaging Radiology Impression Abdomen/Pelvis CT 10/13/24 21:33 IMPRESSION: Urinary bladder wall thickening which may represent detrusor muscle hypertrophy or cystitis. Correlate with urinalysis. Dense colonic stool which may suggest constipation. IVC filter. If not actively managed by Interventional Radiology, consider consult. Reading Location: [place] [address] Assessment & Plan Assessment/Plan (1) Sepsis: (2) Lactic acidosis: (3) Acute metabolic encephalopathy: (4) UTI (urinary tract infection): PLAN: Plan Sepsis secondary to urinary tract infection - Patient had been on outpatient ciprofloxacin and culture was sent to showing Pseudomonas without sensitivities - On presentation had altered mentation, low serum bicarb less than 20, and lactic acidosis - Sepsis protocol pursued with decreased fluid resuscitation due to concern for volume overload - Zosyn given the emergency department will utilize meropenem on the floor - Blood and urine cultures are pending-await finalization of cultures and narrowantibiotics as able - Given patient's hemodynamic stability and lack of ICU beds patient was admitted to PCU for ongoing medical care with close monitoring of vital signs - Prior to leaving the emergency department he had received his fluid bolusesand antibiotics and lactate had cleared so I do feel he remains appropriate for PCU status Lactic acidosis - 3.7 on presentation secondary above - Cycle for sepsis protocol--> repeat was due prior to bed availability and had normalized to 1.6 with treatment the emergency department Toxic/metabolic encephalopathy with hallucinations - Had been intermittent at home and seem to be more associate with fevers - Able to engage in conversation appropriately - Does have baseline dementia - Should improve with treatment of UTI History of gout - Continue home allopurinol Hyperlipidemia - Continue home Zetia Carotid artery stenosis - Last carotid duplex in 2012 shows mild bilateral (less than 50%) stenosis - Continue treatment as ordered - Outpatient follow-up CKD stage IIIb - Serum creatinine baseline appears to run between 1.4 and 1.9 - Currently 1.96 next-patient will be receiving IV fluids for sepsis - Repeat in a.m. next-avoid nephrotoxin DM-2 - Hold home Trulicity - Continue home Jardiance - Continue home Basaglar 75 units nightly - Hold home glipizide - SSI with Accu-Cheks as ordered - Cardiac/carb controlled diet - Will hold home low-dose lisinopril now for elevated serum creatinine--> suspect on this for renal protection his dose is 2.5 mg daily and patient does not seem to carry diagnosis of hypertension at baseline Diabetic neuropathy - continue home gabapentin but given renal dysfunction will decrease from 800 3 times daily to 400 3 times daily - May need permanent alteration at discharge depending on renal function Chronic pain - Continue home Ultram - Continue home tizanidine Hypothyroidism - Continue levothyroxine Restless leg syndrome - Continue home Mirapex Depression - Continue home duloxetine - Continue home Seroquel Insomnia - Continue home trazodone Morbid obesity -BMI 46.6 -Recommend weight loss next-complicates treatment, prognosis, outcomes -patient denies diagnosis of obstructive sleep apnea however it is significant he may carry the diagnosis and would benefit from outpatient polysomnography DVT prophylaxis -subcu heparin 3 times daily CODE STATUS - DNR CCA with no intubation Sepsis Attestation Sepsis Alert: Yes Sepsis Attestation: Agree w/Sepsis Date exam was performed: 10/13/24 Time exam was performed: 23:51 Possible Source of Sepsis: Genitourinary Sepsis Organ Dysfunction Criteria Present: Lactic Acid > 2 mmol/L, Serum CO2 < 20 mmol/L (on BMP) and New/Unexplained change in mental status Fluid Resuscitation Fluid Resuscitation ordered: Lesser volume fluid bolus ordered Amount of fluid ordered: 2,500 Reason for lesser fluid bolus:: Concern for fluid overload Charges/Coding Visit Charges Inpatient E&M: 38081 Init Hosp L3 10/14/24 0152 <Electronically signed by Bisi Rivera DO> Cosigner Signature (if applicable): CC: MELY DUARTE; Dr. Bisi Rivera DO~ Signed ADDENDUM by Dr. Bisi Rivera DO on 10/14/24 at 0153 Addendum Sepsis reevaluation after antibiotics and fluid administration. Lactic acidosishas improved. Hemodynamics remained stable. 10/14/24 015<Electronically signed by Bisi Rivera DO> Cosigner Signature (if applicable): cc: MELY DUARTE; Dr. Bisi Rivera DO ~* Signed ADDENDUM by Dr. Bisi Rivera DO on 10/14/24 at 0153 Addendum Sepsis reevaluation done at 01 45 on 10/14/2024 10/14/24152<Electronically signed by Bisi Rivera DO> Cosigner Signature (if applicable): cc: MELY DUARTE; Dr. Bisi Rivera DO ~* Signed [facility] Work Phone: 1(127) 528-231506-13-2025 Discharge summary Author Nick Coyle [facility] Note Date/Time October 14, 2024 12:0 6am [facility] Medical Records Department [address] [place] [id number] Emergency Department Summary 10/13/24 MR#: [id number] Acct: [id number] Name: CAHRLI PORRAS Rep #:[id number] : 1950 74 From: Nick perez DO PCP: ABHISHEK ST Status:REG ER Location: ED HPI History of Present Illness Chief Complaint: Complaint Narrative Narrative: Chief complaint and HPI: Delirium and UTI. 74-year-old male with past medical history of dementia, DM2, CKD, HTN, recurrent UTIs presents for evaluation with for delirium and UTI. states that the patient is mostly bedbound to home. She bathes him and has care providers visit patient in the home. She states that he gets recurrent UTIs. He started develop a fever several days agoin which the PCP did a urine which was positive and placed the patient on ciprofloxacin. states that his fevers improved until today. She states that he is also having intermittent delirium where he saw a schoolbus on the wall. She states that this is not his baseline. She called the PCP who recommended him coming to the emergency department. She did show me a text message in which the culture grew out Pseudomonas however no sensitivities. Patient denies any abdominal pain, nausea, vomiting, dysuria, hematuria. states that he has been making urine and eating and drinking. Review of systems: See HPI Medications: As listed on the chart Allergies: As listed on the chart PFSH: Per chart Vital signs: As listed on the chart. Reviewed. Physical exam: Gen: A&O x3, NAD Head: Normocephalic, atraumatic Eyes: No sclera icterus, conjunctiva clear, PERRL ENT: Moist mucous membranes CV: RRR, no murmurs Resp: Lungs CTA BL, no w/r/c GI: Large body habitus, abd soft, non-distended, non-tender, no r/r/g : No CVA tenderness. Circumcised penis. No penile tenderness or discharge. Nopenile or testicular swelling. Normal lie and position of the testicles. No testicular tenderness, masses, or skin changes. Musc: Moves all extremity Skin: Warm, dry Neuro: Alert, oriented, grossly intact, sensation intact Psych: Cooperative [facility] Medical History Kidney disease Gout Dementia Diabetes HTN (hypertension) Home Medications ?Medication ?Instructions ?Recorded ?Last Taken ?Type allopurinol 100 mg tablet 100 mg PO DAILYCM 05/03/13 U nknown History gabapentin 800 mg tablet 800 mg PO TIDCM 05/03/13 Unk nown History feiopsmv-rok-vhkhk acid 0.4 1 ea PO DAILY 05/03/13 Unk nown History mg-lycopene 300 mcg-lutein 250 mcg tablet (Centrum Silver) donepezil 10 mg tablet 10 mg PO [...] PO DAILY Unknown History release 24 hr levothyroxine 50 mcg tablet 50 mcg PO DAILY 03/18/24 U nknown History lisinopril 2.5 mg tablet 2.5 mg PO DAILY 03/18/24 Unk nown History pramipexole 0.125 mg tablet 0.125 mg PO BID 03/18/24 U nknown History quetiapine 50 mg tablet 50 mg PO DAILY 03/18/24 Unkn own History tramadol 50 mg tablet 50 mg PO 4X/DAY pain 4 Unknown History cefdinir 300 mg capsule 300 mg PO BID 4 days #8 caps 08/23/24 Unknown Rx tizanidine 2 mg tablet 4 mg (2 x 2 mg) PO QPM PRN m uscle 08/23/24 Unknown Rx spasms #0 tabs trazodone 50 mg tablet 50 mg PO DAILY@1700 #0 tabs 08/23/24 Unknown Rx trazodone 50 mg tablet 50 mg PO QHS #0 tabs 5 Unknown Rx insulin glargine 100 unit/mL (3 75 unit subcut QPM 04/27 Unknown History mL) subcutaneous pen (Basaglar KwikPen U-100 Insulin) Allergy/AdvReac Type Severity Reaction Status Date / Time ibuprofen AdvReac Abd Verified 10/13/24 17:49 cramps/diarrhea Surgical History History of left shoulder replacement H/O knee surgery Social History Smoking Status: Never smoker EXAM Physical Exam Const Vital Signs: 10/13/24 17:47 10/13/24 20:29 10/13/24 21:00 Temperature 98 F 97.6 F L 97.8 F Temperature Source Oral Oral Oral Pulse Rate 84 87 73 Respiratory Rate 16 18 16 Blood Pressure 116/60 114/71 137/72 H Blood Pressure Mean 78 85 93 Pulse Ox 97 96 96 Oxygen Delivery Method Room Air Room Air Room Air 10/13/24 22:00 10/13/24 23:00 Temperature 97.4 F L 97.9 F Temperature Source Oral Oral Pulse Rate 89 70 Respiratory Rate 14 12 Blood Pressure 135/62 H 136/68 H Blood Pressure Mean 86 90 Pulse Ox 95 95 Oxygen Delivery Method Room Air Room Air MDM MDM MDM Narrative Medical decision making narrative: 74-year-old male with past medical history of dementia, DM2, CKD, HTN, recurrentUTIs presents for evaluation with for delirium and UTI. states the patient was diagnosed with UTI and currently on ciprofloxacin. States he developed delirium today as well as fever. On presentation, patient in no acutedistress. Alert and oriented x 3. Vitals are stable. Differential diagnosis includes but is not limited to UTI, MISTY, electrolyte abnormality, pyelonephritis. NS bolus and laboratory workup ordered. CBC without leukocytosis or anemia. Patient has baseline thrombocytopenia. Patient has AKIwith BUN of 21 and creatinine of 1.96. In August he had a normal BUN. In August creatinine was 1.46. Glucose 239, patient is a known diabetic. No anion gap. Lactic acid 3.7. Fluids running. 30 cc/kg bolus not ordered as patient is not hypotensive. Blood culture ordered. UA is positive for pyuria without bacteria. Urine culture sent. This may be secondary to the patient being on ciprofloxacin. Per text message that showed me patient grew out Pseudomonas without sensitivity. On patient's previous urine cultures on chart review he has grown out Callie and gram- positive organisms. Will give Zosyn tocover broadly as well as for Pseudomonas. CT abdomen pelvis without contrast shows urinary bladder wall thickening consistent with cystitis. Constipation. No urolithiasis or hydronephrosis. Patient will warrant admission. Patient andwife updated of all the results and the plan. They confirmed understanding the plan. Hospitalist accepted admission. Impression: 1. Sepsis secondary to UTI 2. MISTY on CKD 3. Lactic acidosis 4. Reported delirium 5. Chronic thrombocytopenia 6. Hyperglycemia in a known type II diabetic Lab Data Labs: Laboratory Results - last 24 hr 10/13/24 20:33 WBC 8.1 RBC 4.59 L Hgb 14.0 Hct 42.8 MCV 93.2 MCH 30.5 MCHC 32.7 RDW Std Deviation 50.2 H RDW Coeff of Veronica 14.6 Plt Count 142 L MPV 9.1 Immature Gran % (Auto) 1.000 H Neut % (Auto) 67.1 Lymph % (Auto) 21.5 Schuyler % (Auto) 6.6 Eos % (Auto) 2.9 Baso % (Auto) 0.9 Absolute Neuts (auto) 5.5 Absolute Lymphs (auto) 1.75 Nucleated RBC % 0 Sodium 135 Potassium 4.3 Chloride 101 Carbon Dioxide 19.3 L Anion Gap 15 BUN 21 H Creatinine 1.96 H Estim Creat Clear Calc 44.76 L Est GFR (MDRD) Non-Af 35 L BUN/Creatinine Ratio 10.7 Glucose 239 H Lactic Acid 3.7 H* Calcium 8.9 Urine Color Yellow Urine Clarity Turbid Urine pH 6.0 Ur Specific [place] 1.020 Urine Protein 100 H Urine Glucose (UA) 1000 H Urine Ketones Negative Urine Occult Blood 150 H Urine Nitrite Negative Urine Bilirubin Negative Urine Urobilinogen Normal Ur Leukocyte Esterase 500 H Urine RBC 0 SEEN Urine WBC >100 SEEN Ur Squamous Epith Cells 0 SEEN Urine Bacteria 0 SEEN Urine Mucus 0 SEEN Radiography Diagnostic Testing: Clinical Impression(s) from Imaging Studies Abdomen/Pelvis CT 10/13/24 21:33 IMPRESSION: Urinary bladder wall thickening which may represent detrusor muscle hypertrophy or cystitis. Correlate with urinalysis. Dense colonic stool which may suggest constipation. IVC filter. If not actively managed by Interventional Radiology, consider consult. Reading Location: [place] [address] Discharge Plan Triage Chief Complaint: Complaint ED Provider: Nick Coyle Dx/Rx/DC Orders Prescriptions: No Action allopurinol 100 MG tablet 100 mg PO DAILYCM gabapentin 800 MG tablet 800 mg PO TIDCM Centrum Silver 1 EACH tablet 1 ea PO DAILY insulin glargine [Basaglar KwikPen U-100 Insulin] 100 unit/mL (3 mL) insulin pen 75 unit subcut QPM donepezil 10 mg tablet 10 mg PO QHS Trulicity 3 mg/0.5 mL pen injector 3 mg subcut QWEEK duloxetine 60 mg capsule,delayed release(DR/EC) 60 mg PO DAILY lisinopril 2.5 mg tablet 2.5 mg PO DAILY pramipexole 0.125 mg tablet 0.125 mg PO BID quetiapine 50 mg tablet 50 mg PO DAILY tramadol 50 mg tablet 50 mg PO 4X/DAY ezetimibe 10 mg tablet 10 mg PO DAILY glipizide 10 mg tablet extended release 24hr 10 mg PO DAILY Jardiance 25 mg tablet 25 mg PO DAILY levothyroxine 50 mcg tablet 50 mcg PO DAILY tizanidine 2 mg Tablet 4 mg PO QPM PRN (Reason: muscle spasms) Qty: 0 0RF trazodone 50 mg Tablet 50 mg PO QHS Qty: 0 0RF Rx Instructions: Home medication. trazodone 50 mg Tablet 50 mg PO DAILY@1700 Qty: 0 0RF Rx Instructions: Home medication. cefdinir 300 mg capsule 300 mg PO BID 4 Days Qty: 8 0RF Primary Care Provider: ABHISHEK ST Referrals: ABHISHEK ST CRNP [Primary Care Provider] - Print Language: Telugu What to do if you have Problems For any increased pain, shortness of breath, bleeding, nausea or vomiting, chestpain, or any unexpected problems, contact your Primary Care Provider. Call [facility] ([phone]) or report to the closest Emergency Room. Call 911 if necessary. 10/14/24 0006 <Electronically signed by Nick Coyle DO> Cosigner Signature (if applicable): CC: MELY DUARTE ~ Signed [facility] Work Phone: 1([phone] 637-476906-13-2025 History and physical note [facility] Medical Records Department [address] [place] [id number] H&P Exam - Hospitalist 10/13/24 2344 MR#: [id number] Acct: [id number] Name: CHARLI PORRAS Rep #:[id number] : 1950 74 From: Bisi Rivera DO PCP: ABHISHEK ST Status:ADM IN Location: [facility] [id number]- [id number] HPI - General General Date of Admission: 10/13/24 Date of Service: 10/13/24 Chief Complaint: Altered mental status with recent UTI diagnosis HPI Narrative CHARLI PORRAS, is a 74 M who presented to the emergency department at [facility] on 10/13/2024 with his due to altered mental status. Patient was recently diagnosed with urinary tract infection and placed on outpatient ciprofloxacin. He was evaluated by his PCP several daysago and was placed on ciprofloxacin at that time. His indicated that she felt his fevers had improved but he relapsed today and is having intermittent altered mental status and hallucinations aswell as some generalized weakness. Patient is did show the ER physician a text message which demonstrated Pseudomonas however sensitivities were not identified at that time. Patient states he has been urinating and eating and drinking okay. Denies any nausea or vomiting. Patient is relatively bedbound at baseline. He denies wearing CPAP nocturnally. Vital signs on presentation showed a temperature of 98, heart rate 84, respiratory 16, blood pressure 116/60 and pulse ox is 97% on room air. CBC on presentation shows a normal white count with no anemia. There is no left shift. His CO2 is less than 20 and his BUN is 20 one of his serum creatinine of 1.96 (baseline fluctuates but lately has been between 1.4 and 1.9). Glucose was 239 and lactic acid was 3.7. His UA is suggestive of infection and dehydration withspecific gravity of 1.02 he has occult blood, leuk esterase, white cells but no bacteria present however he has been on antibiotics asnoted above. CT of the abdomen pelvis was performed and shows urinary bladder wall thickening, dense colonic stool and an IVC filter. He was given IV fluids and placed on Zosyn x 1 dose. He does meet sepsis criteria with an elevated lactic acid and the low serum bicarb with altered mental status so sepsis protocol was initiated with conservative fluid bolus given concern for volume overload. [facility] History CKD (chronic kidney disease), stage III Insulin dependent diabetes mellitus Dementia Kidney disease Gout Dementia Diabetes HTN (hypertension) Home Medications ?Medication ?Instructions ?Recorded ?Last Taken ?Type allopurinol 100 mg tablet 100 mg PO DAILYCM 05/03/13 U nknown History gabapentin 800 mg tablet 800 mg PO TIDCM 05/03/13 Unk nown History yxpepvfk-xvs-rclgb acid 0.4 1 ea PO DAILY 05/03/13 Unk nown History mg-lycopene 300 mcg-lutein 250 mcg tablet (Centrum Silver) donepezil 10 mg tablet 10 mg PO [...] PO DAILY Unknown History release 24 hr levothyroxine 50 mcg tablet 50 mcg PO DAILY 03/18/24 U nknown History lisinopril 2.5 mg tablet 2.5 mg PO DAILY 03/18/24 Unk nown History pramipexole 0.125 mg tablet 0.125 mg PO BID 03/18/24 U nknown History quetiapine 50 mg tablet 50 mg PO DAILY 03/18/24 Unkn own History tramadol 50 mg tablet 50 mg PO 4X/DAY pain 4 Unknown History cefdinir 300 mg capsule 300 mg PO BID 4 days #8 caps 08/23/24 Unknown Rx tizanidine 2 mg tablet 4 mg (2 x 2 mg) PO QPM PRN m uscle 08/23/24 Unknown Rx spasms #0 tabs trazodone 50 mg tablet 50 mg PO DAILY@1700 #0 tabs 08/23/24 Unknown Rx trazodone 50 mg tablet 50 mg PO QHS #0 tabs 5 Unknown Rx insulin glargine 100 unit/mL (3 75 unit subcut QPM 04/27 Unknown History mL) subcutaneous pen (Basaglar KwikPen U-100 Insulin) Allergy/AdvReac Type Severity Reaction Status Date / Time ibuprofen AdvReac Abd Verified 10/13/24 17:49 cramps/diarrhea unable to obtain Surgical History History of left shoulder replacement H/O knee surgery Social History (Updated 10/14/24 @ 01:[address] Bisi Rivera DO) household members: spouse housing: house current occupational status: retired Smoking Status: Never smoker alcohol intake: never substance use type: does not use ROS Constitutional Constitutional: Reports fatigue and weakness; Denies anorexia, change in weight,chills, fever(s), malaise, night sweats or other Eyes Eyes: Denies blurry vision, change in eye color, change in vision, discharge from eye(s), double vision, erythema, eye pain, loss of vision or other ENT HEENT: Denies abnormal hearing, dysphagia, ear pain, epistaxis, headache(s), hearing loss, nasal congestion, nasal discharge, post nasal drip, sinus pressure, sore throat or other Cardiovascular Cardiovascular: Denies chest pain, claudication, dyspnea on exertion, edema, lightheadedness, orthopnea, palpitations, paroxysmal nocturnal dyspnea, rapid heart rate, syncope or other Respiratory/Chest Respiratory/Chest: Denies cough, dyspnea, excessive phlegm production, hemoptysis, productive cough, shortness of breath at rest, shortness of breath with exertion, wheezing or other Gastrointestinal Gastrointestinal: Denies abdominal pain, coffee ground emesis, constipation, diarrhea, dyspepsia, hematemesis, hematochezia, loose stools, melena, nausea, vomiting or other Genitourinary Genitourinary: Denies burning urination, difficulty urinating, dysuria, hematuria, nocturia, urinary frequency, urinary hesitancy, urinary incontinence,urinary urgency or other Musculoskeletal Musculoskeletal: Reports back pain; Denies arthralgias, joint pain, joint stiffness, joint swelling, myalgias, neck pain or other Neurologic Neurologic: Reports confusion; Denies abnormal gait, abnormal speech, disequilibrium, dizziness, focal weakness, headache(s), numbness, paresthesias, seizure-like activity, seizures, syncope, tingling, tremor(s) or other Psychiatric Psychiatric: Denies anxiety, depression, homicidal ideation, suicidal ideation or other Endocrine Endocrinology: Denies change in body appearance, cold intolerance, excessive sweating, heat intolerance, polydipsia, polyuria or other Hematologic/Lymphatic Hematologic/Lymphatic: Denies anemia, easy bleeding, easy bruising, lymphadenopathy or other Allergic/Immunologic Allergic/Immunologic: Denies rhinitis, hives, eczemia, asthma or other Vital Signs Vital Signs Vital Signs: 10/13/24 17:47 10/13/24 20:29 10/13/24 21:00 Temperature 98 F 97.6 F L 97.8 F Temperature Source Oral Oral Oral Pulse Rate 84 87 73 Respiratory Rate 16 18 16 Blood Pressure 116/60 114/71 137/72 H Blood Pressure Mean 78 85 93 Pulse Ox 97 96 96 Oxygen Delivery Method Room Air Room Air Room Air 10/13/24 22:00 10/13/24 23:00 Temperature 97.4 F L 97.9 F Temperature Source Oral Oral Pulse Rate 89 70 Respiratory Rate 14 12 Blood Pressure 135/62 H 136/68 H Blood Pressure Mean 86 90 Pulse Ox 95 95 Oxygen Delivery Method Room Air Room Air Weight Weight: 136.9 kg Body Mass Index (BMI) 44.5 Physical Exam Const alert, no apparent distress and well nourished; Negative for oriented x3, average body habitus or healthy appearing Constitutional Narrative: Morbidly obese, white male, lying in bed, appears comfortable, oriented to self and place but not time General Appearance: cooperative HEENT normocephalic, head/scalp atraumatic, hearing grossly normal bilaterally and moist oral mucous membranes HEENT Narrative: Mallampati is 4, no thrush, edentulous Eyes conjunctivae normal Eyes Narrative: No scleral icterus Neck supple Neck Narrative: Neck is short and thick, trachea midline Resp normal respiratory effort, no retractions and clear to auscultation bilaterally Resp Narrative: Diminished diffusely with difficult exam due to body habitus Auscultation: Negative for rales, rhonchi or wheezes Cardio regular rate, regular rhythm, S1 normal heart sound, S2 normal heart sound, no murmurs, no rub, no gallops and no clicks Cardio Narrative: Distant due to body habitus GI normal to inspection, nondistended, normoactive bowel sounds, soft to palpation and non-tender GI Narrative: Large protuberant abdomen, umbilical hernia noted Extremity Extremity Narrative: Chronic bilateral lower extremity edema trace to 1+, no cyanosis or clubbing Skin skin turgor normal, no jaundice, no petechiae and no mottling Skin Narrative: Skin bilateral lower extremities consistent with chronic venous stasis Neuro moves all extremities and no focal motor deficits Neuro Narrative: Severe generalized weakness and marked mobility limitations Speech: speech normal Psych Psych Narrative: Pleasant with mild confusion, appears calm Results Lab / Micro Data 10/13/24 20:33 10/13/24 20:33 Labs: Laboratory Results - last 24 hr 10/13/24 20:33: WBC 8.1, RBC 4.59 L, Hgb 14.0, Hct 42.8, MCV 93.2, MCH 30.5, MCHC 32.7, RDW Std Deviation 50.2 H, RDW Coeff of Veronica 14.6, Plt Count 142 L, MPV9.1, Immature Gran % (Auto) 1.000 H, Neut % (Auto) 67.1, Lymph % (Auto) 21.5, Schuyler % (Auto) 6.6, Eos % (Auto) 2.9, Baso % (Auto) 0.9, AbsoluteNeuts (auto) 5.5, Absolute Lymphs (auto) 1.75, Nucleated RBC % 0, Sodium 135, Potassium 4.3, Chloride 101, Carbon Dioxide 19.3 L, Anion Gap 15, BUN 21 H, Creatinine 1.96 H, Estim Creat Clear Calc 44.76 L, Est GFR (MDRD) Non-Af 35 L, BUN/Creatinine Ratio10.7, Glucose 239 H, Lactic Acid 3.7 H*, Calcium 8.9, Urine Color Yellow, Urine Clarity Turbid, Urine pH 6.0, Ur Specific [place] 1.020, Urine Protein 100 H, Urine Glucose (UA) 1000 H, Urine Ketones Negative, Urine Occult Blood 150 H, Urine Nitrite Negative, Urine Bilirubin Negative, Urine Urobilinogen Normal, Ur Leukocyte Esterase 500 H, UrineRBC 0 SEEN, Urine WBC >100 SEEN, Ur Squamous Epith Cells 0 SEEN, Urine Bacteria 0 SEEN, Urine Mucus 0 SEEN Imaging Radiology Impression Abdomen/Pelvis CT 10/13/24 21:33 IMPRESSION: Urinary bladder wall thickening which may represent detrusor muscle hypertrophy or cystitis. Correlate with urinalysis. Dense colonic stool which may suggest constipation. IVC filter. If not actively managed by Interventional Radiology, consider consult. Reading Location: [place] [address] Assessment & Plan Assessment/Plan (1) Sepsis: (2) Lactic acidosis: (3) Acute metabolic encephalopathy: (4) UTI (urinary tract infection): PLAN: Plan Sepsis secondary to urinary tract infection - Patient had been on outpatient ciprofloxacin and culture was sent to showing Pseudomonas without sensitivities - On presentation had altered mentation, low serum bicarb less than 20, and lactic acidosis - Sepsis protocol pursued with decreased fluid resuscitation due to concern for volume overload - Zosyn given the emergency department will utilize meropenem on the floor - Blood and urine cultures are pending-await finalization of cultures and narrowantibiotics as able - Given patient's hemodynamic stability and lack of ICU beds patient was admitted to PCU for ongoing medical care with close monitoring of vital signs - Prior to leaving the emergency department he had received his fluid bolusesand antibiotics and lactate had cleared so I do feel he remains appropriate for PCU status Lactic acidosis - 3.7 on presentation secondary above - Cycle for sepsis protocol--> repeat was due prior to bed availability and had normalized to 1.6 with treatment the emergency department Toxic/metabolic encephalopathy with hallucinations - Had been intermittent at home and seem to be more associate with fevers - Able to engage in conversation appropriately - Does have baseline dementia - Should improve with treatment of UTI History of gout - Continue home allopurinol Hyperlipidemia - Continue home Zetia Carotid artery stenosis - Last carotid duplex in 2012 shows mild bilateral (less than 50%) stenosis - Continue treatment as ordered - Outpatient follow-up CKD stage IIIb - Serum creatinine baseline appears to run between 1.4 and 1.9 - Currently 1.96 next-patient will be receiving IV fluids for sepsis - Repeat in a.m. next-avoid nephrotoxin DM-2 - Hold home Trulicity - Continue home Jardiance - Continue home Basaglar 75 units nightly - Hold home glipizide - SSI with Accu-Cheks as ordered - Cardiac/carb controlled diet - Will hold home low-dose lisinopril now for elevated serum creatinine--> suspect on this for renal protection his dose is 2.5 mg daily and patient does not seem to carry diagnosis of hypertensionat baseline Diabetic neuropathy - continue home gabapentin but given renal dysfunction will decrease from 800 3 times daily to 400 3 times daily - May need permanent alteration at discharge depending on renal function Chronic pain - Continue home Ultram - Continue home tizanidine Hypothyroidism - Continue levothyroxine Restless leg syndrome - Continue home Mirapex Depression - Continue home duloxetine - Continue home Seroquel Insomnia - Continue home trazodone Morbid obesity -BMI 46.6 -Recommend weight loss next-complicates treatment, prognosis, outcomes -patient denies diagnosis of obstructive sleep apnea however it is significant he may carry the diagnosis and would benefit from outpatient polysomnography DVT prophylaxis -subcu heparin 3 times daily CODE STATUS - DNR CCA with no intubation Sepsis Attestation Sepsis Alert: Yes Sepsis Attestation: Agree w/Sepsis Date exam was performed: 10/13/24 Time exam was performed: 23:51 Possible Source of Sepsis: Genitourinary Sepsis Organ Dysfunction Criteria Present: Lactic Acid > 2 mmol/L, Serum CO2 < 20 mmol/L (on BMP) and New/Unexplained change in mental status Fluid Resuscitation Fluid Resuscitation ordered: Lesser volume fluid bolus ordered Amount of fluid ordered: 2,500 Reason for lesser fluid bolus:: Concern for fluid overload Charges/Coding Visit Charges Inpatient E&M: 42603 Init Hosp L3 10/14/24 015 Cosigner Signature (if applicable): CC: MELY DUARTE; Dr. Bisi Rivera DO~ Signed ADDENDUM by Dr. Bisi Rivera DO on 10/14/24 at 0153 Addendum Sepsis reevaluation after antibiotics and fluid administration. Lactic acidosishas improved. Hemodynamics remained stable. 10/14/24152 Cosigner Signature (if applicable): cc: MELY DUARTE; Dr. Bisi Rivera DO ~* Signed ADDENDUM by Dr. Bisi Rivera DO on 10/14/24 at 0153 Addendum Sepsis reevaluation done at 01 45 on 10/14/2024 10/14/24152 Cosigner Signature (if applicable): cc: MELY DUARTE; Dr. Bisi Rivera DO ~* Signed [facility]06-13-2025 History and physical note [facility] Medical Records Department [address] [place] [id number] H&P Exam - Hospitalist 10/13/24 2344 MR#: [id number] Acct: [id number] Name: CHARLI PORRAS Rep #:[id number] : 1950 74 From: Bisi Rivera DO PCP: ABHISHEK ST Status:ADM IN Location: [facility] [id number] HPI - General General Date of Admission: 10/13/24 Date of Service: 10/13/24 Chief Complaint: Altered mental status with recent UTI diagnosis HPI Narrative CHARLI PORRAS, is a 74 M who presented to the emergency department at [facility] on 10/13/2024 with his due to altered mental status. Patient was recently diagnosed with urinary tract infection and placed on outpatient ciprofloxacin. He was evaluated by his PCP several daysago and was placed on ciprofloxacin at that time. His indicated that she felt his fevers had improved but he relapsed today and is having intermittent altered mental status and hallucinations aswell as some generalized weakness. Patient is did show the ER physician a text message which demonstrated Pseudomonas however sensitivities were not identified at that time. Patient states he has been urinating and eating and drinking okay. Denies any nausea or vomiting. Patient is relatively bedbound at baseline. He denies wearing CPAP nocturnally. Vital signs on presentation showed a temperature of 98, heart rate 84, respiratory 16, blood pressure 116/60 and pulse ox is 97% on room air. CBC on presentation shows a normal white count with no anemia. There is no left shift. His CO2 is less than 20 and his BUN is 20 one of his serum creatinine of 1.96 (baseline fluctuates but lately has been between 1.4 and 1.9). Glucose was 239 and lactic acid was 3.7. His UA is suggestive of infection and dehydration withspecific gravity of 1.02 he has occult blood, leuk esterase, white cells but no bacteria present however he has been on antibiotics asnoted above. CT of the abdomen pelvis was performed and shows urinary bladder wall thickening, dense colonic stool and an IVC filter. He was given IV fluids and placed on Zosyn x 1 dose. He does meet sepsis criteria with an elevated lactic acid and the low serum bicarb with altered mental status so sepsis protocol was initiated with conservative fluid bolus given concern for volume overload. [facility] History CKD (chronic kidney disease), stage III Insulin dependent diabetes mellitus Dementia Kidney disease Gout Dementia Diabetes HTN (hypertension) Home Medications ?Medication ?Instructions ?Recorded ?Last Taken ?Type allopurinol 100 mg tablet 100 mg PO DAILYCM 05/03/13 U nknown History gabapentin 800 mg tablet 800 mg PO TIDCM 05/03/13 Unk nown History [id number]-[id number] acid 0.4 1 ea PO DAILY 05/03/13 Unk nown History mg-lycopene 300 mcg-lutein 250 mcg tablet (Centrum Silver) donepezil 10 mg tablet 10 mg PO [...] PO DAILY Unknown History release 24 hr levothyroxine 50 mcg tablet 50 mcg PO DAILY 03/18/24 U nknown History lisinopril 2.5 mg tablet 2.5 mg PO DAILY 03/18/24 Unk nown History pramipexole 0.125 mg tablet 0.125 mg PO BID 03/18/24 U nknown History quetiapine 50 mg tablet 50 mg PO DAILY 03/18/24 Unkn own History tramadol 50 mg tablet 50 mg PO 4X/DAY pain 4 Unknown History cefdinir 300 mg capsule 300 mg PO BID 4 days #8 caps 08/23/24 Unknown Rx tizanidine 2 mg tablet 4 mg (2 x 2 mg) PO QPM PRN m uscle 08/23/24 Unknown Rx spasms #0 tabs trazodone 50 mg tablet 50 mg PO DAILY@1700 #0 tabs 08/23/24 Unknown Rx trazodone 50 mg tablet 50 mg PO QHS #0 tabs 5 Unknown Rx insulin glargine 100 unit/mL (3 75 unit subcut QPM 04/27 Unknown History mL) subcutaneous pen (Basaglar KwikPen U-100 Insulin) Allergy/AdvReac Type Severity Reaction Status Date / Time ibuprofen AdvReac Abd Verified 10/13/24 17:49 cramps/diarrhea unable to obtain Surgical History History of left shoulder replacement H/O knee surgery Social History (Updated 10/14/24 @ 01:[address] Bisi Rivera DO) household members: spouse housing: house current occupational status: retired Smoking Status: Never smoker alcohol intake: never substance use type: does not use ROS Constitutional Constitutional: Reports fatigue and weakness; Denies anorexia, change in weight,chills, fever(s), malaise, night sweats or other Eyes Eyes: Denies blurry vision, change in eye color, change in vision, discharge from eye(s), double vision, erythema, eye pain, loss of vision or other ENT HEENT: Denies abnormal hearing, dysphagia, ear pain, epistaxis, headache(s), hearing loss, nasal congestion, nasal discharge, post nasal drip, sinus pressure, sore throat or other Cardiovascular Cardiovascular: Denies chest pain, claudication, dyspnea on exertion, edema, lightheadedness, orthopnea, palpitations, paroxysmal nocturnal dyspnea, rapid heart rate, syncope or other Respiratory/Chest Respiratory/Chest: Denies cough, dyspnea, excessive phlegm production, hemoptysis, productive cough, shortness of breath at rest, shortness of breath with exertion, wheezing or other Gastrointestinal Gastrointestinal: Denies abdominal pain, coffee ground emesis, constipation, diarrhea, dyspepsia, hematemesis, hematochezia, loose stools, melena, nausea, vomiting or other Genitourinary Genitourinary: Denies burning urination, difficulty urinating, dysuria, hematuria, nocturia, urinary frequency, urinary hesitancy, urinary incontinence,urinary urgency or other Musculoskeletal Musculoskeletal: Reports back pain; Denies arthralgias, joint pain, joint stiffness, joint swelling, myalgias, neck pain or other Neurologic Neurologic: Reports confusion; Denies abnormal gait, abnormal speech, disequilibrium, dizziness, focal weakness, headache(s), numbness, paresthesias, seizure-like activity, seizures, syncope, tingling, tremor(s) or other Psychiatric Psychiatric: Denies anxiety, depression, homicidal ideation, suicidal ideation or other Endocrine Endocrinology: Denies change in body appearance, cold intolerance, excessive sweating, heat intolerance, polydipsia, polyuria or other Hematologic/Lymphatic Hematologic/Lymphatic: Denies anemia, easy bleeding, easy bruising, lymphadenopathy or other Allergic/Immunologic Allergic/Immunologic: Denies rhinitis, hives, eczemia, asthma or other Vital Signs Vital Signs Vital Signs: 10/13/24 17:47 10/13/24 20:29 10/13/24 21:00 Temperature 98 F 97.6 F L 97.8 F Temperature Source Oral Oral Oral Pulse Rate 84 87 73 Respiratory Rate 16 18 16 Blood Pressure 116/60 114/71 137/72 H Blood Pressure Mean 78 85 93 Pulse Ox 97 96 96 Oxygen Delivery Method Room Air Room Air Room Air 10/13/24 22:00 10/13/24 23:00 Temperature 97.4 F L 97.9 F Temperature Source Oral Oral Pulse Rate 89 70 Respiratory Rate 14 12 Blood Pressure 135/62 H 136/68 H Blood Pressure Mean 86 90 Pulse Ox 95 95 Oxygen Delivery Method Room Air Room Air Weight Weight: 136.9 kg Body Mass Index (BMI) 44.5 Physical Exam Const alert, no apparent distress and well nourished; Negative for oriented x3, average body habitus or healthy appearing Constitutional Narrative: Morbidly obese, white male, lying in bed, appears comfortable, oriented to self and place but not time General Appearance: cooperative HEENT normocephalic, head/scalp atraumatic, hearing grossly normal bilaterally and moist oral mucous membranes HEENT Narrative: Mallampati is 4, no thrush, edentulous Eyes conjunctivae normal Eyes Narrative: No scleral icterus Neck supple Neck Narrative: Neck is short and thick, trachea midline Resp normal respiratory effort, no retractions and clear to auscultation bilaterally Resp Narrative: Diminished diffusely with difficult exam due to body habitus Auscultation: Negative for rales, rhonchi or wheezes Cardio regular rate, regular rhythm, S1 normal heart sound, S2 normal heart sound, no murmurs, no rub, no gallops and no clicks Cardio Narrative: Distant due to body habitus GI normal to inspection, nondistended, normoactive bowel sounds, soft to palpation and non-tender GI Narrative: Large protuberant abdomen, umbilical hernia noted Extremity Extremity Narrative: Chronic bilateral lower extremity edema trace to 1+, no cyanosis or clubbing Skin skin turgor normal, no jaundice, no petechiae and no mottling Skin Narrative: Skin bilateral lower extremities consistent with chronic venous stasis Neuro moves all extremities and no focal motor deficits Neuro Narrative: Severe generalized weakness and marked mobility limitations Speech: speech normal Psych Psych Narrative: Pleasant with mild confusion, appears calm Results Lab / Micro Data 10/13/24 20:33 10/13/24 20:33 Labs: Laboratory Results - last 24 hr 10/13/24 20:33: WBC 8.1, RBC 4.59 L, Hgb 14.0, Hct 42.8, MCV 93.2, MCH 30.5, MCHC 32.7, RDW Std Deviation 50.2 H, RDW Coeff of Veronica 14.6, Plt Count 142 L, MPV9.1, Immature Gran % (Auto) 1.000 H, Neut % (Auto) 67.1, Lymph % (Auto) 21.5, Schuyler % (Auto) 6.6, Eos % (Auto) 2.9, Baso % (Auto) 0.9, AbsoluteNeuts (auto) 5.5, Absolute Lymphs (auto) 1.75, Nucleated RBC % 0, Sodium 135, Potassium 4.3, Chloride 101, Carbon Dioxide 19.3 L, Anion Gap 15, BUN 21 H, Creatinine 1.96 H, Estim Creat Clear Calc 44.76 L, Est GFR (MDRD) Non-Af 35 L, BUN/Creatinine Ratio10.7, Glucose 239 H, Lactic Acid 3.7 H*, Calcium 8.9, Urine Color Yellow, Urine Clarity Turbid, Urine pH 6.0, Ur Specific [place] 1.020, Urine Protein 100 H, Urine Glucose (UA) 1000 H, Urine Ketones Negative, Urine Occult Blood 150 H, Urine Nitrite Negative, Urine Bilirubin Negative, Urine Urobilinogen Normal, Ur Leukocyte Esterase 500 H, UrineRBC 0 SEEN, Urine WBC >100 SEEN, Ur Squamous Epith Cells 0 SEEN, Urine Bacteria 0 SEEN, Urine Mucus 0 SEEN Imaging Radiology Impression Abdomen/Pelvis CT 10/13/24 21:33 IMPRESSION: Urinary bladder wall thickening which may represent detrusor muscle hypertrophy or cystitis. Correlate with urinalysis. Dense colonic stool which may suggest constipation. IVC filter. If not actively managed by Interventional Radiology, consider consult. Reading Location: [place] [address] Assessment & Plan Assessment/Plan (1) Sepsis: (2) Lactic acidosis: (3) Acute metabolic encephalopathy: (4) UTI (urinary tract infection): PLAN: Plan Sepsis secondary to urinary tract infection - Patient had been on outpatient ciprofloxacin and culture was sent to showing Pseudomonas without sensitivities - On presentation had altered mentation, low serum bicarb less than 20, and lactic acidosis - Sepsis protocol pursued with decreased fluid resuscitation due to concern for volume overload - Zosyn given the emergency department will utilize meropenem on the floor - Blood and urine cultures are pending-await finalization of cultures and narrowantibiotics as able - Given patient's hemodynamic stability and lack of ICU beds patient was admitted to PCU for ongoing medical care with close monitoring of vital signs - Prior to leaving the emergency department he had received his fluid bolusesand antibiotics and lactate had cleared so I do feel he remains appropriate for PCU status Lactic acidosis - 3.7 on presentation secondary above - Cycle for sepsis protocol--> repeat was due prior to bed availability and had normalized to 1.6 with treatment the emergency department Toxic/metabolic encephalopathy with hallucinations - Had been intermittent at home and seem to be more associate with fevers - Able to engage in conversation appropriately - Does have baseline dementia - Should improve with treatment of UTI History of gout - Continue home allopurinol Hyperlipidemia - Continue home Zetia Carotid artery stenosis - Last carotid duplex in 2012 shows mild bilateral (less than 50%) stenosis - Continue treatment as ordered - Outpatient follow-up CKD stage IIIb - Serum creatinine baseline appears to run between 1.4 and 1.9 - Currently 1.96 next-patient will be receiving IV fluids for sepsis - Repeat in a.m. next-avoid nephrotoxin DM-2 - Hold home Trulicity - Continue home Jardiance - Continue home Basaglar 75 units nightly - Hold home glipizide - SSI with Accu-Cheks as ordered - Cardiac/carb controlled diet - Will hold home low-dose lisinopril now for elevated serum creatinine--> suspect on this for renal protection his dose is 2.5 mg daily and patient does not seem to carry diagnosis of hypertensionat baseline Diabetic neuropathy - continue home gabapentin but given renal dysfunction will decrease from 800 3 times daily to 400 3 times daily - May need permanent alteration at discharge depending on renal function Chronic pain - Continue home Ultram - Continue home tizanidine Hypothyroidism - Continue levothyroxine Restless leg syndrome - Continue home Mirapex Depression - Continue home duloxetine - Continue home Seroquel Insomnia - Continue home trazodone Morbid obesity -BMI 46.6 -Recommend weight loss next-complicates treatment, prognosis, outcomes -patient denies diagnosis of obstructive sleep apnea however it is significant he may carry the diagnosis and would benefit from outpatient polysomnography DVT prophylaxis -subcu heparin 3 times daily CODE STATUS - DNR CCA with no intubation Sepsis Attestation Sepsis Alert: Yes Sepsis Attestation: Agree w/Sepsis Date exam was performed: 10/13/24 Time exam was performed: 23:51 Possible Source of Sepsis: Genitourinary Sepsis Organ Dysfunction Criteria Present: Lactic Acid > 2 mmol/L, Serum CO2 < 20 mmol/L (on BMP) and New/Unexplained change in mental status Fluid Resuscitation Fluid Resuscitation ordered: Lesser volume fluid bolus ordered Amount of fluid ordered: 2,500 Reason for lesser fluid bolus:: Concern for fluid overload Charges/Coding Visit Charges Inpatient E&M: 82226 Init Hosp L3 10/14/24 0152 Cosigner Signature (if applicable): CC: MELY DUARTE; Dr. Bisi Rivera DO~ Signed [facility]06-13-2025 History and physical note Author Bisi Rivera [facility] Note Date/Time October 14, 2024 1:52 am [facility] Medical Records Department [address] [place] [address] H&P Exam - Hospitalist 10/13/24 2344 MR#: [id number] Acct: [id number] Name: CHARLI PORRAS Rep #:[id number] : 1950 74 From: Bisi Rivera DO PCP: ABHISHEK ST Status:ADM IN Location: [facility] [id number] HPI - General General Date of Admission: 10/13/24 Date of Service: 10/13/24 Chief Complaint: Altered mental status with recent UTI diagnosis HPI Narrative CHARLI PORRAS, is a 74 M who presented to the emergency department at [facility] on 10/13/2024 with his due to altered mental status. Patient was recently diagnosed with urinary tract infection and placed on outpatient ciprofloxacin. He was evaluated by his PCP several days ago and was placed on ciprofloxacin at that time. His indicated that she felt his fevers had improved but he relapsed today and is having intermittent altered mental status and hallucinations as well as some generalized weakness. Patient is did show the ER physician a text message which demonstrated Pseudomonas however sensitivities were not identified at that time. Patient states he has been urinating and eating and drinking okay. Denies any nausea or vomiting. Patient is relatively bedbound at baseline. He denies wearing CPAP nocturnally. Vital signs on presentation showed a temperature of 98, heart rate 84, respiratory 16, blood pressure 116/60 and pulse ox is 97% on room air. CBC on presentation shows a normal white count with no anemia. There is no left shift. His CO2 is less than 20 and his BUN is 20 one of his serum creatinine of 1.96 (baseline fluctuates but lately has been between 1.4 and 1.9). Glucose was 239 and lactic acid was 3.7. His UA is suggestive of infection and dehydration withspecific gravity of 1.02 he has occult blood, leuk esterase, white cells but no bacteria present however he has been on antibiotics as noted above. CT of the abdomen pelvis was performed and shows urinary bladder wall thickening, dense colonic stool and an IVC filter. He was given IV fluids and placed on Zosyn x 1 dose. He does meet sepsis criteria with an elevated lactic acid and the low serum bicarb with altered mental status so sepsis protocol was initiated with conservative fluid bolus given concern for volume overload[facility] History CKD (chronic kidney disease), stage III Insulin dependent diabetes mellitus Dementia Kidney disease Gout Dementia Diabetes HTN (hypertension) Home Medications ?Medication ?Instructions ?Recorded ?Last Taken ?Type allopurinol 100 mg tablet 100 mg PO DAILYCM 05/03/13 U nknown History gabapentin 800 mg tablet 800 mg PO TIDCM 05/03/13 Unk nown History octvuhuu-rgy-puzdd acid 0.4 1 ea PO DAILY 05/03/13 Unk nown History mg-lycopene 300 mcg-lutein 250 mcg tablet (Centrum Silver) donepezil 10 mg tablet 10 mg PO [...] PO DAILY Unknown History release 24 hr levothyroxine 50 mcg tablet 50 mcg PO DAILY 03/18/24 U nknown History lisinopril 2.5 mg tablet 2.5 mg PO DAILY 03/18/24 Unk nown History pramipexole 0.125 mg tablet 0.125 mg PO BID 03/18/24 U nknown History quetiapine 50 mg tablet 50 mg PO DAILY 03/18/24 Unkn own History tramadol 50 mg tablet 50 mg PO 4X/DAY pain 4 Unknown History cefdinir 300 mg capsule 300 mg PO BID 4 days #8 caps 08/23/24 Unknown Rx tizanidine 2 mg tablet 4 mg (2 x 2 mg) PO QPM PRN m uscle 08/23/24 Unknown Rx spasms #0 tabs trazodone 50 mg tablet 50 mg PO DAILY@1700 #0 tabs 08/23/24 Unknown Rx trazodone 50 mg tablet 50 mg PO QHS #0 tabs 5 Unknown Rx insulin glargine 100 unit/mL (3 75 unit subcut QPM 04/27 Unknown History mL) subcutaneous pen (Basaglar KwikPen U-100 Insulin) Allergy/AdvReac Type Severity Reaction Status Date / Time ibuprofen AdvReac Abd Verified 10/13/24 17:49 cramps/diarrhea unable to obtain Surgical History History of left shoulder replacement H/O knee surgery Social History (Updated 10/14/24 @ 01:[address] Bisi Rivera DO) household members: spouse housing: house current occupational status: retired Smoking Status: Never smoker alcohol intake: never substance use type: does not use ROS Constitutional Constitutional: Reports fatigue and weakness; Denies anorexia, change in weight,chills, fever(s), malaise, night sweats or other Eyes Eyes: Denies blurry vision, change in eye color, change in vision, discharge from eye(s), double vision, erythema, eye pain, loss of vision or other ENT HEENT: Denies abnormal hearing, dysphagia, ear pain, epistaxis, headache(s), hearing loss, nasal congestion, nasal discharge, post nasal drip, sinus pressure, sore throat or other Cardiovascular Cardiovascular: Denies chest pain, claudication, dyspnea on exertion, edema, lightheadedness, orthopnea, palpitations, paroxysmal nocturnal dyspnea, rapid heart rate, syncope or other Respiratory/Chest Respiratory/Chest: Denies cough, dyspnea, excessive phlegm production, hemoptysis, productive cough, shortness of breath at rest, shortness of breath with exertion, wheezing or other Gastrointestinal Gastrointestinal: Denies abdominal pain, coffee ground emesis, constipation, diarrhea, dyspepsia, hematemesis, hematochezia, loose stools, melena, nausea, vomiting or other Genitourinary Genitourinary: Denies burning urination, difficulty urinating, dysuria, hematuria, nocturia, urinary frequency, urinary hesitancy, urinary incontinence,urinary urgency or other Musculoskeletal Musculoskeletal: Reports back pain; Denies arthralgias, joint pain, joint stiffness, joint swelling, myalgias, neck pain or other Neurologic Neurologic: Reports confusion; Denies abnormal gait, abnormal speech, disequilibrium, dizziness, focal weakness, headache(s), numbness, paresthesias, seizure-like activity, seizures, syncope, tingling, tremor(s) or other Psychiatric Psychiatric: Denies anxiety, depression, homicidal ideation, suicidal ideation or other Endocrine Endocrinology: Denies change in body appearance, cold intolerance, excessive sweating, heat intolerance, polydipsia, polyuria or other Hematologic/Lymphatic Hematologic/Lymphatic: Denies anemia, easy bleeding, easy bruising, lymphadenopathy or other Allergic/Immunologic Allergic/Immunologic: Denies rhinitis, hives, eczemia, asthma or other Vital Signs Vital Signs Vital Signs: 10/13/24 17:47 10/13/24 20:29 10/13/24 21:00 Temperature 98 F 97.6 F L 97.8 F Temperature Source Oral Oral Oral Pulse Rate 84 87 73 Respiratory Rate 16 18 16 Blood Pressure 116/60 114/71 137/72 H Blood Pressure Mean 78 85 93 Pulse Ox 97 96 96 Oxygen Delivery Method Room Air Room Air Room Air 10/13/24 22:00 10/13/24 23:00 Temperature 97.4 F L 97.9 F Temperature Source Oral Oral Pulse Rate 89 70 Respiratory Rate 14 12 Blood Pressure 135/62 H 136/68 H Blood Pressure Mean 86 90 Pulse Ox 95 95 Oxygen Delivery Method Room Air Room Air Weight Weight: 136.9 kg Body Mass Index (BMI) 44.5 Physical Exam Const alert, no apparent distress and well nourished; Negative for oriented x3, average body habitus or healthy appearing Constitutional Narrative: Morbidly obese, white male, lying in bed, appears comfortable, oriented to self and place but not time General Appearance: cooperative HEENT normocephalic, head/scalp atraumatic, hearing grossly normal bilaterally and moist oral mucous membranes HEENT Narrative: Mallampati is 4, no thrush, edentulous Eyes conjunctivae normal Eyes Narrative: No scleral icterus Neck supple Neck Narrative: Neck is short and thick, trachea midline Resp normal respiratory effort, no retractions and clear to auscultation bilaterally Resp Narrative: Diminished diffusely with difficult exam due to body habitus Auscultation: Negative for rales, rhonchi or wheezes Cardio regular rate, regular rhythm, S1 normal heart sound, S2 normal heart sound, no murmurs, no rub, no gallops and no clicks Cardio Narrative: Distant due to body habitus GI normal to inspection, nondistended, normoactive bowel sounds, soft to palpation and non-tender GI Narrative: Large protuberant abdomen, umbilical hernia noted Extremity Extremity Narrative: Chronic bilateral lower extremity edema trace to 1+, no cyanosis or clubbing Skin skin turgor normal, no jaundice, no petechiae and no mottling Skin Narrative: Skin bilateral lower extremities consistent with chronic venous stasis Neuro moves all extremities and no focal motor deficits Neuro Narrative: Severe generalized weakness and marked mobility limitations Speech: speech normal Psych Psych Narrative: Pleasant with mild confusion, appears calm Results Lab / Micro Data 10/13/24 20:33 10/13/24 20:33 Labs: Laboratory Results - last 24 hr 10/13/24 20:33: WBC 8.1, RBC 4.59 L, Hgb 14.0, Hct 42.8, MCV 93.2, MCH 30.5, MCHC 32.7, RDW Std Deviation 50.2 H, RDW Coeff of Veronica 14.6, Plt Count 142 L, MPV9.1, Immature Gran % (Auto) 1.000 H, Neut % (Auto) 67.1, Lymph % (Auto) 21.5, Schuyler % (Auto) 6.6, Eos % (Auto) 2.9, Baso % (Auto) 0.9, Absolute Neuts (auto) 5.5, Absolute Lymphs (auto) 1.75, Nucleated RBC % 0, Sodium 135, Potassium 4.3, Chloride 101, Carbon Dioxide 19.3 L, Anion Gap 15, BUN 21 H, Creatinine 1.96 H, Estim Creat Clear Calc 44.76 L, Est GFR (MDRD) Non-Af 35 L, BUN/Creatinine Ratio10.7, Glucose 239 H, Lactic Acid 3.7 H*, Calcium 8.9, Urine Color Yellow, Urine Clarity Turbid, Urine pH 6.0, Ur Specific [place] 1.020, Urine Protein 100 H, Urine Glucose (UA) 1000 H, Urine Ketones Negative, Urine Occult Blood 150 H, Urine Nitrite Negative, Urine Bilirubin Negative, Urine Urobilinogen Normal, Ur Leukocyte Esterase 500 H, Urine RBC 0 SEEN, Urine WBC >100 SEEN, Ur Squamous Epith Cells 0 SEEN, Urine Bacteria 0 SEEN, Urine Mucus 0 SEEN Imaging Radiology Impression Abdomen/Pelvis CT 10/13/24 21:33 IMPRESSION: Urinary bladder wall thickening which may represent detrusor muscle hypertrophy or cystitis. Correlate with urinalysis. Dense colonic stool which may suggest constipation. IVC filter. If not actively managed by Interventional Radiology, consider consult. Reading Location: [place] [address] Assessment & Plan Assessment/Plan (1) Sepsis: (2) Lactic acidosis: (3) Acute metabolic encephalopathy: (4) UTI (urinary tract infection): PLAN: Plan Sepsis secondary to urinary tract infection - Patient had been on outpatient ciprofloxacin and culture was sent to showing Pseudomonas without sensitivities - On presentation had altered mentation, low serum bicarb less than 20, and lactic acidosis - Sepsis protocol pursued with decreased fluid resuscitation due to concern for volume overload - Zosyn given the emergency department will utilize meropenem on the floor - Blood and urine cultures are pending-await finalization of cultures and narrowantibiotics as able - Given patient's hemodynamic stability and lack of ICU beds patient was admitted to PCU for ongoing medical care with close monitoring of vital signs - Prior to leaving the emergency department he had received his fluid bolusesand antibiotics and lactate had cleared so I do feel he remains appropriate for PCU status Lactic acidosis - 3.7 on presentation secondary above - Cycle for sepsis protocol--> repeat was due prior to bed availability and had normalized to 1.6 with treatment the emergency department Toxic/metabolic encephalopathy with hallucinations - Had been intermittent at home and seem to be more associate with fevers - Able to engage in conversation appropriately - Does have baseline dementia - Should improve with treatment of UTI History of gout - Continue home allopurinol Hyperlipidemia - Continue home Zetia Carotid artery stenosis - Last carotid duplex in 2012 shows mild bilateral (less than 50%) stenosis - Continue treatment as ordered - Outpatient follow-up CKD stage IIIb - Serum creatinine baseline appears to run between 1.4 and 1.9 - Currently 1.96 next-patient will be receiving IV fluids for sepsis - Repeat in a.m. next-avoid nephrotoxin DM-2 - Hold home Trulicity - Continue home Jardiance - Continue home Basaglar 75 units nightly - Hold home glipizide - SSI with Accu-Cheks as ordered - Cardiac/carb controlled diet - Will hold home low-dose lisinopril now for elevated serum creatinine--> suspect on this for renal protection his dose is 2.5 mg daily and patient does not seem to carry diagnosis of hypertension at baseline Diabetic neuropathy - continue home gabapentin but given renal dysfunction will decrease from 800 3 times daily to 400 3 times daily - May need permanent alteration at discharge depending on renal function Chronic pain - Continue home Ultram - Continue home tizanidine Hypothyroidism - Continue levothyroxine Restless leg syndrome - Continue home Mirapex Depression - Continue home duloxetine - Continue home Seroquel Insomnia - Continue home trazodone Morbid obesity -BMI 46.6 -Recommend weight loss next-complicates treatment, prognosis, outcomes -patient denies diagnosis of obstructive sleep apnea however it is significant he may carry the diagnosis and would benefit from outpatient polysomnography DVT prophylaxis -subcu heparin 3 times daily CODE STATUS - DNR CCA with no intubation Sepsis Attestation Sepsis Alert: Yes Sepsis Attestation: Agree w/Sepsis Date exam was performed: 10/13/24 Time exam was performed: 23:51 Possible Source of Sepsis: Genitourinary Sepsis Organ Dysfunction Criteria Present: Lactic Acid > 2 mmol/L, Serum CO2 < 20 mmol/L (on BMP) and New/Unexplained change in mental status Fluid Resuscitation Fluid Resuscitation ordered: Lesser volume fluid bolus ordered Amount of fluid ordered: 2,500 Reason for lesser fluid bolus:: Concern for fluid overload Charges/Coding Visit Charges Inpatient E&M: 49807 Init Hosp L3 10/14/24 0152 <Electronically signed by Bisi Rivera DO> Cosigner Signature (if applicable): CC: MELY DUARTE; Dr. Bisi Rivera DO~ Signed [facility] Work Phone: [phone] Discharge summary [facility] Medical Records Department [address] [place] [address] Emergency Department Summary 10/13/24 MR#: [id number] Acct: [id number] Name: CHARLI PORRAS Rep #:[id number] : 1950 74 From: Nick perez DO PCP: AHBISHEK ST Status:REG ER Location: ED HPI History of Present Illness Chief Complaint: Complaint Narrative Narrative: Chief complaint and HPI: Delirium and UTI. 74-year-old male with past medical history of dementia, DM2, CKD, HTN, recurrent UTIs presents for evaluation with for delirium and UTI. states that the patient is mostly bedbound to home. She bathes him and has care providers visit patient in the home. She states that he gets recurrent UTIs. He started develop a fever several days agoin which the PCP did a urine which was positive and placed the patient on ciprofloxacin. states that hisfevers improved until today. She states that he is also having intermittent delirium where he saw aschoolbus on the wall. She states that this is not his baseline. She called the PCP who recommendedhim coming to the emergency department. She did show me a text message in which the culture grew out Pseudomonas however no sensitivities. Patient denies any abdominal pain, nausea, vomiting, dysuria, hematuria. states that he has been making urine and eating and drinking. Review of systems: See HPI Medications: As listed on the chart Allergies: As listed on the chart PFSH: Per chart Vital signs: As listed on the chart. Reviewed. Physical exam: Gen: A&O x3, NAD Head: Normocephalic, atraumatic Eyes: No sclera icterus, conjunctiva clear, PERRL ENT: Moist mucous membranes CV: RRR, no murmurs Resp: Lungs CTA BL, no w/r/c GI: Large body habitus, abd soft, non-distended, non-tender, no r/r/g : No CVA tenderness. Circumcised penis. No penile tenderness or discharge. Nopenile or testicularswelling. Normal lie and position of the testicles. No testicular tenderness, masses, or skin changes. Musc: Moves all extremity Skin: Warm, dry Neuro: Alert, oriented, grossly intact, sensation intact Psych: Cooperative [facility] Medical History Kidney disease Gout Dementia Diabetes HTN (hypertension) Home Medications ?Medication ?Instructions ?Recorded ?Last Taken ?Type allopurinol 100 mg tablet 100 mg PO DAILYCM 05/03/13 U nknown History gabapentin 800 mg tablet 800 mg PO TIDCM 05/03/13 Unk nown History lkpxlpny-yxc-gukfv acid 0.4 1 ea PO DAILY 05/03/13 Unk nown History mg-lycopene 300 mcg-lutein 250 mcg tablet (Centrum Silver) donepezil 10 mg tablet 10 mg PO [...] PO DAILY Unknown History release 24 hr levothyroxine 50 mcg tablet 50 mcg PO DAILY 03/18/24 U nknown History lisinopril 2.5 mg tablet 2.5 mg PO DAILY 03/18/24 Unk nown History pramipexole 0.125 mg tablet 0.125 mg PO BID 03/18/24 U nknown History quetiapine 50 mg tablet 50 mg PO DAILY 03/18/24 Unkn own History tramadol 50 mg tablet 50 mg PO 4X/DAY pain 4 Unknown History cefdinir 300 mg capsule 300 mg PO BID 4 days #8 caps 08/23/24 Unknown Rx tizanidine 2 mg tablet 4 mg (2 x 2 mg) PO QPM PRN m uscle 08/23/24 Unknown Rx spasms #0 tabs trazodone 50 mg tablet 50 mg PO DAILY@1700 #0 tabs 08/23/24 Unknown Rx trazodone 50 mg tablet 50 mg PO QHS #0 tabs 5 Unknown Rx insulin glargine 100 unit/mL (3 75 unit subcut QPM 04/27 Unknown History mL) subcutaneous pen (Basaglar KwikPen U-100 Insulin) Allergy/AdvReac Type Severity Reaction Status Date / Time ibuprofen AdvReac Abd Verified 10/13/24 17:49 cramps/diarrhea Surgical History History of left shoulder replacement H/O knee surgery Social History Smoking Status: Never smoker EXAM Physical Exam Const Vital Signs: 10/13/24 17:47 10/13/24 20:29 10/13/24 21:00 Temperature 98 F 97.6 F L 97.8 F Temperature Source Oral Oral Oral Pulse Rate 84 87 73 Respiratory Rate 16 18 16 Blood Pressure 116/60 114/71 137/72 H Blood Pressure Mean 78 85 93 Pulse Ox 97 96 96 Oxygen Delivery Method Room Air Room Air Room Air 10/13/24 22:00 10/13/24 23:00 Temperature 97.4 F L 97.9 F Temperature Source Oral Oral Pulse Rate 89 70 Respiratory Rate 14 12 Blood Pressure 135/62 H 136/68 H Blood Pressure Mean 86 90 Pulse Ox 95 95 Oxygen Delivery Method Room Air Room Air MDM MDM MDM Narrative Medical decision making narrative: 74-year-old male with past medical history of dementia, DM2, CKD, HTN, recurrentUTIs presents for evaluation with for delirium and UTI. states the patient was diagnosed with UTI and currently on ciprofloxacin. States he developed delirium today as well as fever. On presentation, patient in no acutedistress. Alert and oriented x 3. Vitals are stable. Differential diagnosis includes but is not limited to UTI, MISTY, electrolyte abnormality, pyelonephritis. NS bolus and laboratory workup ordered. CBC without leukocytosis or anemia. Patient has baseline thrombocytopenia. Patient has AKIwith BUN of 21 and creatinine of 1.96. In August he had a normal BUN. In August creatinine was 1.46. Glucose 239, patient is a known diabetic. No anion gap. Lactic acid 3.7. Fluids running. 30 cc/kg bolusnot ordered as patient is not hypotensive. Blood culture ordered. UA is positive for pyuria withoutbacteria. Urine culture sent. This may be secondary to the patient being on ciprofloxacin. Per textmessage that showed me patient grew out Pseudomonas without sensitivity. On patient's previousurine cultures on chart review he has grown out Callie and gram-positive organisms. Will give Zosyn tocover broadly as well as for Pseudomonas. CT abdomen pelvis without contrast shows urinary bladder wall thickening consistent with cystitis. Constipation. No urolithiasis or hydronephrosis. Patient will warrant admission. Patient andwife updated of all the results and the plan. They confirmed understanding the plan. Hospitalist accepted admission. Impression: 1. Sepsis secondary to UTI 2. MISTY on CKD 3. Lactic acidosis 4. Reported delirium 5. Chronic thrombocytopenia 6. Hyperglycemia in a known type II diabetic Lab Data Labs: Laboratory Results - last 24 hr 10/13/24 20:33 WBC 8.1 RBC 4.59 L Hgb 14.0 Hct 42.8 MCV 93.2 MCH 30.5 MCHC 32.7 RDW Std Deviation 50.2 H RDW Coeff of Veronica 14.6 Plt Count 142 L MPV 9.1 Immature Gran % (Auto) 1.000 H Neut % (Auto) 67.1 Lymph % (Auto) 21.5 Schuyler % (Auto) 6.6 Eos % (Auto) 2.9 Baso % (Auto) 0.9 Absolute Neuts (auto) 5.5 Absolute Lymphs (auto) 1.75 Nucleated RBC % 0 Sodium 135 Potassium 4.3 Chloride 101 Carbon Dioxide 19.3 L Anion Gap 15 BUN 21 H Creatinine 1.96 H Estim Creat Clear Calc 44.76 L Est GFR (MDRD) Non-Af 35 L BUN/Creatinine Ratio 10.7 Glucose 239 H Lactic Acid 3.7 H* Calcium 8.9 Urine Color Yellow Urine Clarity Turbid Urine pH 6.0 Ur Specific [place] 1.020 Urine Protein 100 H Urine Glucose (UA) 1000 H Urine Ketones Negative Urine Occult Blood 150 H Urine Nitrite Negative Urine Bilirubin Negative Urine Urobilinogen Normal Ur Leukocyte Esterase 500 H Urine RBC 0 SEEN Urine WBC >100 SEEN Ur Squamous Epith Cells 0 SEEN Urine Bacteria 0 SEEN Urine Mucus 0 SEEN Radiography Diagnostic Testing: Clinical Impression(s) from Imaging Studies Abdomen/Pelvis CT 10/13/24 21:33 IMPRESSION: Urinary bladder wall thickening which may represent detrusor muscle hypertrophy or cystitis. Correlate with urinalysis. Dense colonic stool which may suggest constipation. IVC filter. If not actively managed by Interventional Radiology, consider consult. Reading Location: [place] [address] Discharge Plan Triage Chief Complaint: Complaint ED Provider: Nick Coyle Dx/Rx/DC Orders Prescriptions: No Action allopurinol 100 MG tablet 100 mg PO DAILYCM gabapentin 800 MG tablet 800 mg PO TIDCM Centrum Silver 1 EACH tablet 1 ea PO DAILY insulin glargine [Basaglar KwikPen U-100 Insulin] 100 unit/mL (3 mL) insulin pen 75 unit subcut QPM donepezil 10 mg tablet 10 mg PO QHS Trulicity 3 mg/0.5 mL pen injector 3 mg subcut QWEEK duloxetine 60 mg capsule,delayed release(DR/EC) 60 mg PO DAILY lisinopril 2.5 mg tablet 2.5 mg PO DAILY pramipexole 0.125 mg tablet 0.125 mg PO BID quetiapine 50 mg tablet 50 mg PO DAILY tramadol 50 mg tablet 50 mg PO 4X/DAY ezetimibe 10 mg tablet 10 mg PO DAILY glipizide 10 mg tablet extended release 24hr 10 mg PO DAILY Jardiance 25 mg tablet 25 mg PO DAILY levothyroxine 50 mcg tablet 50 mcg PO DAILY tizanidine 2 mg Tablet 4 mg PO QPM PRN (Reason: muscle spasms) Qty: 0 0RF trazodone 50 mg Tablet 50 mg PO QHS Qty: 0 0RF Rx Instructions: Home medication. trazodone 50 mg Tablet 50 mg PO DAILY@1700 Qty: 0 0RF Rx Instructions: Home medication. cefdinir 300 mg capsule 300 mg PO BID 4 Days Qty: 8 0RF Primary Care Provider: ABHISHEK ST Referrals: ABHISHEK ST CRNP [Primary Care Provider] - Print Language: Telugu What to do if you have Problems For any increased pain, shortness of breath, bleeding, nausea or vomiting, chestpain, or any unexpected problems, contact your Primary Care Provider. Call [facility] ([phone]) or report tothe closest Emergency Room. Call 911 if necessary. 10/14/24 0006 Cosigner Signature (if applicable): CC: MELY DUARTE ~ Signed [facility]06-12-2025 Radiology Diagnostic study note [facility] Imaging Services [address] [place] [address] Abdomen/Pelvis without Cont MR#: [id number] Acct: [id number] Name: CHARLI PORRAS Rep #: [id number] : 1950 M 74 From: Lico Mckeon MD PCP: ABHISHEK ST Status: REG ER Study:Abdomen/Pelvis without Cont Date of Exa m: 10/13/24 Exam# [id number] Ordering Dr: Nick Batista DO PROCEDURE: ABDOMEN/PELVIS WITHOUT CONT 10/13/2024 REASON FOR EXAM: PAIN TECHNIQUE: Abdomen and pelvis CT without intravenous contrast. Noncontrast technique limits evaluation of the abdominal and pelvic viscera. Coronal and Sagittal reconstruction series were provided. One or more dose reduction techniques were used (e.g., Automated exposure control, adjustment of the mA and/or kV according to patient size, use of iterative reconstruction technique). PATIENT PREPARATION: Per protocol ORAL CONTRAST TYPE: None. COMPARISON: None. FINDINGS: The peripheral soft tissues are unremarkable. Degenerative changes of the spine. Mild atherosclerosis. Normal caliber abdominal aorta. IVC filter is present within the caval lumen. The liver is unremarkable. The gallbladder is absent. The pancreas, spleen, and adrenals are unremarkable. Bilateral kidney atrophy. No hydronephrosis. Urinary bladder wall thickening. Normal caliber large and small bowel. Dense colonic stool. CT/Abdomen/Pelvis without Cont IMPRESSION: Urinary bladder wall thickening which may represent detrusor muscle hypertrophy or cystitis. Correlate with urinalysis. Dense colonic stool which may suggest constipation. IVC filter. If not actively managed by Interventional Radiology, consider consult. Reading Location: [id number] CC: MELY DUARTE; Dr. Nick Coyle DO ~ Kosher Sealer: Signed [facility]06-12-2025 Discharge summary Author Nick Coyle [facility] Note Date/Time October 14, 2024 12:0 6am [facility] Medical Records Department [address] [place] [address] Emergency Department Summary 10/13/24 MR#: [id number] Acct: [id number] Name: CHARLI PORRAS Rep #:[id number] : 1950 74 From: Nick perez DO PCP: ABHISHEK ST Status:REG ER Location: ED HPI History of Present Illness Chief Complaint: Complaint Narrative Narrative: Chief complaint and HPI: Delirium and UTI. 74-year-old male with past medical history of dementia, DM2, CKD, HTN, recurrent UTIs presents for evaluation with for delirium and UTI. states that the patient is mostly bedbound to home. She bathes him and has care providers visit patient in the home. She states that he gets recurrent UTIs. He started develop a fever several days agoin which the PCP did a urine which was positive and placed the patient on ciprofloxacin. states that his fevers improved until today. She states that he is also having intermittent delirium where he saw a schoolbus on the wall. She states that this is not his baseline. She called the PCP who recommended him coming to the emergency department. She did show me a text message in which the culture grew out Pseudomonas however no sensitivities. Patient denies any abdominal pain, nausea, vomiting, dysuria, hematuria. states that he has been making urine and eating and drinking. Review of systems: See HPI Medications: As listed on the chart Allergies: As listed on the chart PFSH: Per chart Vital signs: As listed on the chart. Reviewed. Physical exam: Gen: A&O x3, NAD Head: Normocephalic, atraumatic Eyes: No sclera icterus, conjunctiva clear, PERRL ENT: Moist mucous membranes CV: RRR, no murmurs Resp: Lungs CTA BL, no w/r/c GI: Large body habitus, abd soft, non-distended, non-tender, no r/r/g : No CVA tenderness. Circumcised penis. No penile tenderness or discharge. Nopenile or testicular swelling. Normal lie and position of the testicles. No testicular tenderness, masses, or skin changes. Musc: Moves all extremity Skin: Warm, dry Neuro: Alert, oriented, grossly intact, sensation intact Psych: Cooperative [facility] Medical History Kidney disease Gout Dementia Diabetes HTN (hypertension) Home Medications ?Medication ?Instructions ?Recorded ?Last Taken ?Type allopurinol 100 mg tablet 100 mg PO DAILYCM 05/03/13 U nknown History gabapentin 800 mg tablet 800 mg PO TIDCM 05/03/13 Unk nown History ihbehjep-xru-yhbng acid 0.4 1 ea PO DAILY 05/03/13 Unk nown History mg-lycopene 300 mcg-lutein 250 mcg tablet (Centrum Silver) donepezil 10 mg tablet 10 mg PO [...] PO DAILY Unknown History release 24 hr levothyroxine 50 mcg tablet 50 mcg PO DAILY 03/18/24 U nknown History lisinopril 2.5 mg tablet 2.5 mg PO DAILY 03/18/24 Unk nown History pramipexole 0.125 mg tablet 0.125 mg PO BID 03/18/24 U nknown History quetiapine 50 mg tablet 50 mg PO DAILY 03/18/24 Unkn own History tramadol 50 mg tablet 50 mg PO 4X/DAY pain 4 Unknown History cefdinir 300 mg capsule 300 mg PO BID 4 days #8 caps 08/23/24 Unknown Rx tizanidine 2 mg tablet 4 mg (2 x 2 mg) PO QPM PRN m uscle 08/23/24 Unknown Rx spasms #0 tabs trazodone 50 mg tablet 50 mg PO DAILY@1700 #0 tabs 08/23/24 Unknown Rx trazodone 50 mg tablet 50 mg PO QHS #0 tabs 5 Unknown Rx insulin glargine 100 unit/mL (3 75 unit subcut QPM 04/27 Unknown History mL) subcutaneous pen (Basaglar KwikPen U-100 Insulin) Allergy/AdvReac Type Severity Reaction Status Date / Time ibuprofen AdvReac Abd Verified 10/13/24 17:49 cramps/diarrhea Surgical History History of left shoulder replacement H/O knee surgery Social History Smoking Status: Never smoker EXAM Physical Exam Const Vital Signs: 10/13/24 17:47 10/13/24 20:29 10/13/24 21:00 Temperature 98 F 97.6 F L 97.8 F Temperature Source Oral Oral Oral Pulse Rate 84 87 73 Respiratory Rate 16 18 16 Blood Pressure 116/60 114/71 137/72 H Blood Pressure Mean 78 85 93 Pulse Ox 97 96 96 Oxygen Delivery Method Room Air Room Air Room Air 10/13/24 22:00 10/13/24 23:00 Temperature 97.4 F L 97.9 F Temperature Source Oral Oral Pulse Rate 89 70 Respiratory Rate 14 12 Blood Pressure 135/62 H 136/68 H Blood Pressure Mean 86 90 Pulse Ox 95 95 Oxygen Delivery Method Room Air Room Air MDM MDM MDM Narrative Medical decision making narrative: 74-year-old male with past medical history of dementia, DM2, CKD, HTN, recurrentUTIs presents for evaluation with for delirium and UTI. states the patient was diagnosed with UTI and currently on ciprofloxacin. States he developed delirium today as well as fever. On presentation, patient in no acutedistress. Alert and oriented x 3. Vitals are stable. Differential diagnosis includes but is not limited to UTI, MISTY, electrolyte abnormality, pyelonephritis. NS bolus and laboratory workup ordered. CBC without leukocytosis or anemia. Patient has baseline thrombocytopenia. Patient has AKIwith BUN of 21 and creatinine of 1.96. In August he had a normal BUN. In August creatinine was 1.46. Glucose 239, patient is a known diabetic. No anion gap. Lactic acid 3.7. Fluids running. 30 cc/kg bolus not ordered as patient is not hypotensive. Blood culture ordered. UA is positive for pyuria without bacteria. Urine culture sent. This may be secondary to the patient being on ciprofloxacin. Per text message that showed me patient grew out Pseudomonas without sensitivity. On patient's previous urine cultures on chart review he has grown out Callie and gram- positive organisms. Will give Zosyn tocover broadly as well as for Pseudomonas. CT abdomen pelvis without contrast shows urinary bladder wall thickening consistent with cystitis. Constipation. No urolithiasis or hydronephrosis. Patient will warrant admission. Patient andwife updated of all the results and the plan. They confirmed understanding the plan. Hospitalist accepted admission. Impression: 1. Sepsis secondary to UTI 2. MISTY on CKD 3. Lactic acidosis 4. Reported delirium 5. Chronic thrombocytopenia 6. Hyperglycemia in a known type II diabetic Lab Data Labs: Laboratory Results - last 24 hr 10/13/24 20:33 WBC 8.1 RBC 4.59 L Hgb 14.0 Hct 42.8 MCV 93.2 MCH 30.5 MCHC 32.7 RDW Std Deviation 50.2 H RDW Coeff of Veronica 14.6 Plt Count 142 L MPV 9.1 Immature Gran % (Auto) 1.000 H Neut % (Auto) 67.1 Lymph % (Auto) 21.5 Schuyler % (Auto) 6.6 Eos % (Auto) 2.9 Baso % (Auto) 0.9 Absolute Neuts (auto) 5.5 Absolute Lymphs (auto) 1.75 Nucleated RBC % 0 Sodium 135 Potassium 4.3 Chloride 101 Carbon Dioxide 19.3 L Anion Gap 15 BUN 21 H Creatinine 1.96 H Estim Creat Clear Calc 44.76 L Est GFR (MDRD) Non-Af 35 L BUN/Creatinine Ratio 10.7 Glucose 239 H Lactic Acid 3.7 H* Calcium 8.9 Urine Color Yellow Urine Clarity Turbid Urine pH 6.0 Ur Specific [place] 1.020 Urine Protein 100 H Urine Glucose (UA) 1000 H Urine Ketones Negative Urine Occult Blood 150 H Urine Nitrite Negative Urine Bilirubin Negative Urine Urobilinogen Normal Ur Leukocyte Esterase 500 H Urine RBC 0 SEEN Urine WBC >100 SEEN Ur Squamous Epith Cells 0 SEEN Urine Bacteria 0 SEEN Urine Mucus 0 SEEN Radiography Diagnostic Testing: Clinical Impression(s) from Imaging Studies Abdomen/Pelvis CT 10/13/24 21:33 IMPRESSION: Urinary bladder wall thickening which may represent detrusor muscle hypertrophy or cystitis. Correlate with urinalysis. Dense colonic stool which may suggest constipation. IVC filter. If not actively managed by Interventional Radiology, consider consult. Reading Location: [place] [address] Discharge Plan Triage Chief Complaint: Complaint ED Provider: Nick Coyle Dx/Rx/DC Orders Prescriptions: No Action allopurinol 100 MG tablet 100 mg PO DAILYCM gabapentin 800 MG tablet 800 mg PO TIDCM Centrum Silver 1 EACH tablet 1 ea PO DAILY insulin glargine [Basaglar KwikPen U-100 Insulin] 100 unit/mL (3 mL) insulin pen 75 unit subcut QPM donepezil 10 mg tablet 10 mg PO QHS Trulicity 3 mg/0.5 mL pen injector 3 mg subcut QWEEK duloxetine 60 mg capsule,delayed release(DR/EC) 60 mg PO DAILY lisinopril 2.5 mg tablet 2.5 mg PO DAILY pramipexole 0.125 mg tablet 0.125 mg PO BID quetiapine 50 mg tablet 50 mg PO DAILY tramadol 50 mg tablet 50 mg PO 4X/DAY ezetimibe 10 mg tablet 10 mg PO DAILY glipizide 10 mg tablet extended release 24hr 10 mg PO DAILY Jardiance 25 mg tablet 25 mg PO DAILY levothyroxine 50 mcg tablet 50 mcg PO DAILY tizanidine 2 mg Tablet 4 mg PO QPM PRN (Reason: muscle spasms) Qty: 0 0RF trazodone 50 mg Tablet 50 mg PO QHS Qty: 0 0RF Rx Instructions: Home medication. trazodone 50 mg Tablet 50 mg PO DAILY@1700 Qty: 0 0RF Rx Instructions: Home medication. cefdinir 300 mg capsule 300 mg PO BID 4 Days Qty: 8 0RF Primary Care Provider: ABHISHEK ST Referrals: ABHISHEK ST CRNP [Primary Care Provider] - Print Language: Telugu What to do if you have Problems For any increased pain, shortness of breath, bleeding, nausea or vomiting, chestpain, or any unexpected problems, contact your Primary Care Provider. Call [facility] ([phone]) or report to the closest Emergency Room. Call 911 if necessary. 10/14/24 0006 <Electronically signed by Nick Coyle DO> Cosigner Signature (if applicable): CC: MELY DUARTE ~ Signed [facility] Work Phone: 1(457) 123-833704-22-2025 [facility] Medical Records Department [address] [place] [address] Discharge Summary 08/23/24 1117 MR#: [id number] Acct: [id number] Name: CHARLI PORRAS Rep #: [id number] : 1950 74 From: Mao Muse MD PCP: ABHISHEK ST Status:ADM IN Location: [facility] [id number] Providers Date of Admission: 08/20/24 Date of Discharge: 08/23/24 Primary Care Physician: MELY DUARTE Consultations 08/20/24 06:10 Consult: Motion Picture Equipment Supervisor / Pulmonary Medicine Routine Consulting Provider: Intensivists/Pulmonary [...] is a 74-year-old male who presented to [facility] ED on 08/20/2024 with worsening confusion [...] ??? Admit under inpatient status to ICU. Motion Picture Equipment Supervisor consulted. The patient meets sepsis criteria with [...] and blood cultures. 08/20: Patient seen by straw baler. Antibiotic Zosyn changed to cefepime 1 g [...] flu and RSV are negative seen by straw baler. Renal bladder ultrasound shows mild bilateral renal [...] and Jardiance. Blood glucose (more content not included)...[facility]04-19-2025 History and physical note [facility] Medical Records Department [address] [place] [address] H&P Exam - Hospitalist 08/20/24 0220 MR#: [id number] Acct: [id number] Name: CHARLI PORRAS Rep #:[id number] : 1950 74 From: Saroj scott DO PCP: Care Physician,No Primary Status :ADM IN Location: ICU ICU01-1 HPI - General General Date of Admission: 08/20/24 Date of Service: 08/20/24 Chief Complaint: Worsening confusion with tremors and weakness HPI Narrative CHARLI PORRAS, is a 74 M who presented to [facility] ED on 08/20/2024 with worsening confusion with tremors and weakness. Medical history is significant for dementia, recurrent UTI with suspected BPH and type 2 diabetes. He lives at home with his . Per family, at baseline heis alert and appears to make appropriate conversation until he begins to repeat himself. He does have weakness at baseline and uses a walker for ambulation. He has required both SNF placement and home health care in the past. He was treated for a UTI about 2 weeks ago. Earlier this evening his wifenoted that he was becoming confused and then [...] the patient at bedside in the ED, wifeand other family member present. Patient was fatigued appearing but did make eye contact with me and told me that he was at [facility]. However he could not answer any other questionsfor me and was not alert to time. [...] patient being moved over to the ICU. [facility] Medical History Kidney disease Gout Dementia Diabetes HTN (hypertension) Home Medications ?Medication ?Instructions ?Recorded ?Last Taken ?Type allopurinol 100 mg tablet 100 mg PO DAILYCM 05/03/13 U nknown History gabapentin 800 mg tablet 800 mg PO TIDCM 05/03/13 Unk nown History swodnugg-jex-ojcsk acid 0.4 1 ea PO DAILY 05/03/13 [...] hearing grossly normal bilaterally and nasal mucous membranesand turbinates normal Eyes PERRL, EOMs intact bilaterally [...] (Auto) 87.2 H, Lymph % (Auto) 6.3 L,Schuyler % (Auto) 4.9, Eos % (Auto) 0.1, [...] Clarity Cloudy, Urine pH 6.0, Ur Specific [place] 1.010, Urine Protein 100 H, Urine Glucose [...] Three-vessel coronary calcification appears moderate. Reading Location: [id number] Assessment & Plan Assessment/Plan (1) Septic shock: (2) UTI (urinary tract infection): (3) Acute metabolic encephalopathy: PLAN: Plan Patient is a 74-year-old male who presented to [facility] ED on 08/20/2024 with worsening confusion with tremors and weakness. 1. Septic shock suspected secondary to UTI ? Admit under inpatient status to ICU. Motion Picture Equipment Supervisor consulted. Presentation seems most consistent with urosepsis [...] now. Follow-up urine culture and blood cultures. 2. Acute metabolic encephalopathy in setting of dementia with behavioral disturbances ? Per family, is alert and oriented x 3 at baseline but repeats himself regularly with conversationand has poor short-term memory. Is A&O x 2 in the ED to person and place but not answering any another questions appropriately. Strongly suspect secondary to UTI as above. No recent trauma, no need for head imaging at this time. Will keep n.p.o. status for now given his confusion but hopeful hewill be cleared to at least swallow medications in the morning. Continue home donepezil, quetiapineand trazodone at night. 3. Acute on chronic debility ? PT/OT/case management consulted. Patient requires walker at home and requiresassistance with mostactivities of daily living from and other family [...] 75 minutes. Charges/Coding Visit Charges Inpatient E&M: 99438 Init Hosp L3 08/20/24 0347 Cosigner Signature (if applicable): CC: Dr. Saroj Gutierrez DO; No Primary Care Physician~ Signed ADDENDUM by Dr. Saroj Gutierrez DO on 08/20/24 at [address] Brown at 5:30am. Patient started on only 2.5 of peripheral levophed and blood pressures significantly increased to the 130s over 70s. Willhold off on central line placement for now. 08/20/24 0538 Cosigner Signature (if applicable): cc: Dr. Saroj Gutierrez DO; No Primary Care Physician ~* Signed [facility]04-19-2025 Evaluation note* Diagnosis Onset Date Resolution Status Admit Date Acute metabolic encephalopathy acute August 20, 2024 3:15am Septic shock acute August 20, 2024 3:15am UTI (urinary tract infection) acute August 20, 2024 3:15am [facility] Work Phone: 1(110) 678-597804-19-2025 Evaluation note* Diagnosis Onset Date Resolution Status [...] diabetes mellitus inactive August 20, 2024 3:15am [facility] Work Phone: 1(601) 486-502204-19-2025 Evaluation note* Diagnosis Onset Date Resolution Status Admit Date Acute metabolic encephalopathy acute August 20, 2024 3:15am UTI (urinary tract infection) acute August 20, 2024 3:15am MISTY (acute kidney injury) resolved August 20, 2024 3:15am Septic shock resolved August 20, 2024 3:15am CKD (chronic kidney disease) , stage III inactive August 20, 2024 3:15am Dementia inactive August 20 3:15am Insulin dependent diabetes mellitus inactive August 20, 2024 3:15am [facility] Work Phone: 1(365) 373-774204-19-2025 Evaluation note* Diagnosis Onset Date Resolution Status Admit Date Acute metabolic encephalopathy acute August 20, 2024 3:15am UTI (urinary tract infection) acute August 20, 2024 3:15am MISTY (acute kidney injury) resolved August 20, 2024 3:15am Septic shock resolved August 20, 2024 3:15am CKD (chronic kidney disease) , stage III inactive August 20, 2024 3:15am Dementia inactive August 20 3:15am Insulin dependent diabetes mellitus inactive August 20, 2024 3:15am Acute metabolic encephalopathy acute October 13, 2024 11:44pm Lactic acidosis acute October 11:44pm Physical debility acute October 132024 11:44pm Sepsis acute October 13 11:44pm UTI (urinary tract infection) acute October 13, 2024 11:44pm [facility] Work Phone: 1(808) 519-440104-19-2025 History and physical note Author Saroj Gutierrez [facility] Note Date/Time August 20, 2024 5:3 9am [facility] Medical Records Department [address] [place] [address] H&P Exam - Hospitalist 08/20/24 0220 MR#: [id number] Acct: [id number] Name: CHARLI PORRAS Rep #:[id number] : 1950 74 From: Saroj scott DO PCP: Care Physician,No Primary Status :ADM IN Location: ICU ICU01-1 HPI - General General Date of Admission: 08/20/24 Date of Service: 08/20/24 Chief Complaint: Worsening confusion with tremors and weakness HPI Narrative CHARLI PORRAS, is a 74 M who presented to [facility] ED on 08/20/2024 with worsening confusion [...] and told me that he was at [facility]. However he could not answer any [...] patient being moved over to the ICU. [facility] Medical History Kidney disease Gout Dementia Diabetes HTN (hypertension) Home Medications ?Medication ?Instructions ?Recorded ?Last Taken ?Type allopurinol 100 mg tablet 100 mg PO DAILYCM 05/03/13 U nknown History gabapentin 800 mg tablet 800 mg PO TIDCM 05/03/13 Unk nown History krenzdfj-kpw-uotgw acid 0.4 1 ea PO DAILY 05/03/13 [...] (Auto) 87.2 H, Lymph % (Auto) 6.3 L,Schuyler % (Auto) 4.9, Eos % (Auto) 0.1, [...] Clarity Cloudy, Urine pH 6.0, Ur Specific [place] 1.010, Urine Protein 100 H, Urine Glucose [...] Three-vessel coronary calcification appears moderate. Reading Location: [id number] Assessment & Plan Assessment/Plan (1) Septic shock: (2) UTI (urinary tract infection): (3) Acute metabolic encephalopathy: PLAN: Plan Patient is a 74-year-old male who presented to [facility] ED on 08/20/2024 with worsening confusion with tremors and weakness. 1. Septic shock suspected secondary to UTI ? Admit under inpatient status to ICU. Motion Picture Equipment Supervisor consulted. Presentation seems most consistent with urosepsis [...] 75 minutes. Charges/Coding Visit Charges Inpatient E&M: 29695 Init Hosp L3 08/20/24 7271 <Electronically signed by Saroj Gutierrez DO> Cosigner [...] DO; No Primary Care Physician ~* Signed [facility] Work Phone: 1(442) 208-466804-19-2025 Radiology Diagnostic study note [facility] Imaging Services [address] [place], [place] [address] CTA Chest W/WO Contrast MR#: [id number] Acct: [id number] Name: CHARLI PORRAS Rep #: [id number] : 1950 M 74 From: Clay Garcia MD PCP: Care Physician,No Primary Status: REG ER Study:CTA Chest W/WO Contrast Date of Exam: 08/20/24 Exam# [id number] Ordering Dr: Dede Brown DO PROCEDURE: CTA [...] inferior vena cava filter suggested on the tool planner views. Motion artifact significantly limits the evaluation. No large central or hilar saddle pulmonary embolism. Interlobar to subsegmental branches are not well evaluated. Thoracic aorta appears within limits. Three-vessel coronary calcification appears moderate. No pericardial or pleural effusion. Images of the upper abdomen appear unremarkable. [place] artifact from left shoulder replacement and anterior [...] Three-vessel coronary calcification appears moderate. Reading Location: [id number] CC: Kaushik Brown DO; No Primary Care Physician ~ Kosher Sealer: Signed [facility]07-06-2023 Hospital Discharge instructions Additional Instructions Please follow-up with your doctor in 3 to 5 days return for any worsening of symptoms.[facility] Work Phone: 1(715) 941-454201-30-2023 Discharge summary Author Tello Lynch [facility] June 02, 2022 12:17pm Note Date/Time June 02, 2022 1 2:00pm [place] [address] Discharge Summary Signed Patient: CHARLI PORRAS MR#: [id number] : 1950 Acct:[id number] Age/Sex: 72 / M ADM Date: Loc: 2T 2014-05 Date of Service: 3 Clinician: Tello Lynch MD cc: Ericka Cassidy DS: Providers Date of admission: 05/31/22 18:18 Primary care physician: Ericka Cassidy DS: Summary Hospital course: This is a 72-year-old white male with significant past medical history of morbidobesity, diabetes mellitus type 2, dementia, hyperlipidemia, hypertension and DVT who presented to [facility] with complaints of altered mental status. [...] MPV Neut % (Auto) Lymph % (Auto) Schuyler % (Auto) Eos % (Auto) Baso % (Auto) Neut # (Auto) Lymph # (Auto) Schuyler # (Auto) Eos # (Auto) Baso # [...] (Auto) 73.1 Lymph % (Auto) 16.2 L Schuyler % (Auto) 9.4 H Eos % (Auto) 0.9 Baso % (Auto) 0.4 Neut # (Auto) 6.0 Lymph # (Auto) 1.3 Schuyler # (Auto) 0.8 H Eos # (Auto) [...] MPV Neut % (Auto) Lymph % (Auto) Schuyler % (Auto) Eos % (Auto) Baso % (Auto) Neut # (Auto) Lymph # (Auto) Schuyler # (Auto) Eos # (Auto) Baso # [...] Tello Lynch Billing Billing Category Hospital Discharge: 44146 DC2 > 30 min Documented By: Tello Lynch MD 06/02/22 1056 Signed By: <Electronically signed by Tello Lynch MD> 06/02/22 1117 [facility] Work Phone: 1([phone]) 490-878601-30-2023 Progress note Author Barbara Gipson [facility] June 02, 2022 11:33am Note Date/Time June 02, 2022 1 1:33am [facility] [address] [place] [address] Wound Care Progress Note Signed Patient: CHARLI PORRAS MR#: [id number] : 1950 Acct:[id number] Age/Sex: 72 / M ADM Date: Loc: 2T 2014-05 Date of Service: 3 Clinician: Barbara Gipson RN cc: Wound Care Progress Note - Wound Care Date of Admission: 05/31/22 18:18 Reason for Consult: buttocks Significant History: Medical history: Reports anemia, arthritis, dementia, diabetes, hypertension andrenal disease Additional Medical History: bundle branch block / dvt / grayling filter Surgical history: Reports adenoidectomy, cholecystectomy, knee [...] wounds every Thursday [ ] [Wound Protocol: S.SENIOR SOFTWARE QA ENGINEER] Left Lateral Foot -Wound Type diabetic wound [...] Serous -Odor No Odor -Wound Bed Appearance [place],Peeling Skin -Length (cm) 12.0 -Width (cm) 12.0 [...] Per the patient, he follows with a explosive operator in [place]; does not recallhis name. I educated the [...] wounds; patient instructed to follow up with explosive operator outpatient Documented By: Barbara Gipson RN 06/02/22 1024 Signed By: <Electronically signed by Barbara Gipson RN> 06/02/22 1033 [facility] Work Phone: 1(969) 170-532801-28-2023 History and physical note Author Naresh Sainz [facility] May 31, 2022 7:30pm Note Date/Time May 31, 2022 7 :25pm [address] [address] History & Physical Signed Patient: CHARLI PORRAS MR#: [id number] : 1950 Acct:[id number] Age/Sex: 72 / M ADM Date: [...] History: bundle branch block / dvt / grayling filter Surgical history: Reports adenoidectomy, cholecystectomy, knee [...] mg tablet 50 mg PO QDAY 04/19/22 05/31/22 04/18/22 History tizanidine 4 mg capsule 4 [...] Cloudy Urine pH 6.0 (4.6-8.0) Ur Specific [place] 1.020 (1.001-1.035) Urine Protein 30 A (NEGATIVE) [...] hypertension (5) Chronic anticoagulation: Code(s): Z79.01 - client reporting associate (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 of anticoagulants (6) Diabetes mellitus: Qualifiers: Diabetes mellitus type: type 2 Diabetes mellitus elastic assembler insulin use:with prison use Diabetes mellitus complication status: with neurologic complications Diabetes mellitus complication detail: with polyneuropathy Qualified Code(s): E11.42 - Type 2 diabetes mellitus with diabetic polyneuropathy; Z79.4 - detention (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 of insulin Code(s): E11.9 - [...] L 93 Billing Billing Category Inpatient Initial: 13066 IP3 High Documented By: Naresh Sainz DO 05/31/22 18 18 Signed By: <Electronically signed by Naresh Sainz DO> 05/31/22 1830 [facility] Work Phone: 1(896) 357-418512-21-2022 Progress note Author Armen Carl [facility] April 23, 2022 7:53am Note Date/Time April 23, 2022 7:53am [facility] [address] [place] [id number] Progress Note Signed Patient: CHARLI PORRAS MR#: [id number] : 1950 Acct:[id number] Age/Sex: 71 / M ADM Date: Loc: 2T 2004-05 Date of Service: 2 Clinician: Armen [...] Sodium Sliding Scale PO Not Given QDAYCOUMADIN [facility] Vital Signs Temperature 98.9 F 04/23/22 00:00 [...] (Auto) 69.3 Lymph % (Auto) 15.1 L Schuyler % (Auto) 11.9 H Eos % (Auto) 2.8 Baso % (Auto) 0.9 Neut # (Auto) 4.8 Lymph # (Auto) 1.1 Schuyler # (Auto) 0.8 H Eos # (Auto) [...] MPV Neut % (Auto) Lymph % (Auto) Schuyler % (Auto) Eos % (Auto) Baso % (Auto) Neut # (Auto) Lymph # (Auto) Schuyler # (Auto) Eos # (Auto) Baso # [...] MPV Neut % (Auto) Lymph % (Auto) Schuyler % (Auto) Eos % (Auto) Baso % (Auto) Neut # (Auto) Lymph # (Auto) Schuyler # (Auto) Eos # (Auto) Baso # [...] (Auto) 66.0 Lymph % (Auto) 18.2 L Schuyler % (Auto) 10.1 H Eos % (Auto) 4.7 H Baso % (Auto) 1.0 Neut # (Auto) 4.6 Lymph # (Auto) 1.3 Schuyler # (Auto) 0.7 Eos # (Auto) 0.3 [...] Dry, Intact, Normal Color, Normal Turgor and [place] HEENT Exam Head: Present Normocephalic and Atraumatic [...] signed by Armen Carl MD> 04/23/22 0653 [facility] Work Phone: 1(274) 722-989812-20-2022 Consult note Author Mary Beth Landaverde [facility] April 22, 2022 12:21pm Note Date/Time April 22, 2022 10:13am [place] [address] Consult Note Signed with Sabrina Patient: CHARLI PORRAS MR#: [id number] : 1950 Acct:[id number] Age/Sex: 71 / M ADM Date: Loc: 3026-1 Date of Service: 2 Clinician: Mary Beth Landaverde NP cc: [...] a MoCA assessment. Patient was started on Cumvcry84 mg daily. Patient failed to follow-up outpatient, [...] an appoint with a neurologist established at [facility] in June, patient's instructed to keep this [...] <Electronically signed by Mary Beth Landaverde > 04/22/221120 ADDENDUM -reviewed EEG and noted unremarkable Addendum Documented By: Mary Beth Landaverde 04/22/22930 Addendum Signed By: <Electronically signed by Mary Beth Landaverde > 04/22/22930 History of Present Illness Consult date: 04/22/22 Requesting physician: Judy Boo Chief complaint: AMS History of present illness: 71-year-old white male presented to [facility] 04-19-2022 for acute onset of weakness/fever/confusion. The patient has past medical history of obesity, type2 diabetes, hypertension, CKD, history of DVT on oral anticoagulants, MCI and neuropathy. The patient has history of following in the [facility] for mild cognitive impairment last seen in [...] [facility] [...] as stated General General: Present as per [facility] Past Medical/Surgical History Attestation statement: The following information was validated with the patient. Medical history: Reports anemia, arthritis, diabetes, hypertension and renal disease Additional Medical History: bundle branch block / dvt / grayling filter Surgical history: Reports adenoidectomy, cholecystectomy, knee [...] Lymph % (Auto) 15.1 L (24.0-44.0) % Schuyler % (Auto) 11.9 H (3.4-9.0) % Schuyler # (Auto) 0.8 H (0.20-0.70) K/uL Urine [...] Clear Urine pH 5.0 (4.6-8.0) Ur Specific [place] 1.015 (1.001-1.035) Urine Protein Negative (NEGATIVE) mg/dL [...] Acute (6) Chronic anticoagulation: Code(s): Z79.01 - client reporting associate (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 of anticoagulants Status: Acute (7) [...] baseline hx of MCI; will r/o acute [facility] pathology -reviewed CTH report and noted NAD [...] By: <Electronically signed by Mary Beth Landaverde> 04/22/22 24 [facility] Work Phone: 1(316) 273-487812-20-2022 Consult note Author Armen Carl [facility] April 22, 2022 7:39am Note Date/Time April 22, 2022 7:24am [address] [address] Consult Note Signed Patient: CHARLI PORRAS MR#: [id number] : 1950 Acct:[id number] Age/Sex: 71 / M ADM Date: [...] History: bundle branch block / dvt / grayling filter Surgical history: Reports adenoidectomy, cholecystectomy, knee [...] Dry, Intact, Normal Color, Normal Turgor and [place] HEENT Exam Head: Present Normocephalic and Atraumatic [...] By: <Electronically signed by Armen Carl MD> 04/22/22 0639 [facility] Work Phone: 1(918) 278-211412-19-2022 Progress note Author Barbara Gipson [facility] April 21, 2022 11:50am Note Date/Time April 21, 2022 11:49am [address] [place] [address] Wound Care Progress Note Signed Patient: CHARLI PORRAS MR#: [id number] : 1950 Acct:[id number] Age/Sex: 71 / M ADM Date: Loc: 3026-1 Date of Service: 2 Clinician: Barbara Gipson RN cc: Wound Care Progress Note - Wound Care Date of Admission: 04/19/22 05:52 Reason for Consult: coccyx wound Significant History: Medical history: Reports anemia, arthritis, diabetes, hypertension and renal disease Additional Medical History: bundle branch block / dvt / grayling filter Surgical history: Reports adenoidectomy, cholecystectomy, knee [...] Date Recorded By Document 04/21/22 10:38 [email or web address] [id number] 04/21/22 10:39 WATKTAS 04/21/22 10:38 Incision/Wound/Dressing Assessment & Care [ ] Re-assess and measure wounds every Thursday [ ] [Wound Protocol: S.SENIOR 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 Alert; states he's leaving and his left to checkout; knows he is at [facility] but seems confused. Oxygen via [...] <Electronically signed by Barbara Gipson RN> 04/21/22 1059 [facility] Work Phone: 1(519) 681-412112-17-2022 History and physical note Author Judy Boo [facility] April 19, 2022 7:12pm Note Date/Time April 19, 2022 7:12pm [facility] [address] [place] [address] History & Physical Signed Patient: CHARLI PORRAS MR#: [id number] : 1950 Acct:[id number] Age/Sex: 71 / M ADM Date: [...] Absent convulsions, dizziness or headache(s) [facility] Past Medical/Surgical History Attestation statement: The following information was validated with the patient. Medical history: Reports anemia, arthritis, diabetes, hypertension and renal disease Additional Medical History: bundle branch block / dvt / grayling filter Surgical history: Reports adenoidectomy, cholecystectomy, knee [...] 04/19/22 00:50 04/19/22 00:50 Abnormal lab results 12/17/22 12/17/22 12/17/22 Range/Units 00:50 00:50 00:50 MPV 6.6 L (7.4-10.4) fL Neut % (Auto) 77.7 H (40.0-74.0) % Lymph % (Auto) 12.6 L (24.0-44.0) % Schuyler # (Auto) 0.8 H (0.20-0.70) K/uL PT [...] (40.0-74.0) % Lymph % (Auto) (24.0-44.0) % [place] # (Auto) (0.20-0.70) K/uL PT (9.5-12.9) s [...] Hazy Urine pH 5.0 (4.6-8.0) Ur Specific [place] 1.015 (1.001-1.035) Urine Protein Trace A (NEGATIVE) [...] Acute (6) Chronic anticoagulation: Code(s): Z79.01 - client reporting associate (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 of anticoagulants Status: Acute (7) [...] or Rubs Billing Billing Category Observation Initial: 71921 O3 High Documented By: Judy Boo MD 04/19/221803 Signed By: <Electronically signed by Judy Boo MD> 04/19/221811 [facility] Work Phone: discharge summary Author Verónica Atkinson [facility] April 23, 2022 11:07am Note Date/Time April 23, 2022 11:01am [facility] [address] [place] [id number] Discharge Summary Signed Patient: CHARLI PORRAS MR#: [id number] : 1950 Acct:[id number] Age/Sex: 71 / M ADM Date: Loc: 2T 2004- Date of Service: 2 Clinician: Verónica Atkinson [...] follow-up with his already established neurologist at [facility], they agree to keep appointment in June [...] medication (5) Chronic anticoagulation: Code(s): Z79.01 - client reporting associate (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 of anticoagulants Status: Chronic Assessment/Plan: [...] chronic anticoagulation with history of DVT presented tot ED with his for confusion, weakness and [...] it. Patient does have a neurologist at [facility] and agrees to keep already scheduled appointment [...] MPV Neut % (Auto) Lymph % (Auto) [place] % (Auto) Eos % (Auto) Baso % (Auto) Neut # (Auto) Lymph # (Auto) [place] # (Auto) Eos # (Auto) Baso # [...] (Auto) 66.0 Lymph % (Auto) 18.2 L [place] % (Auto) 10.1 H Eos % (Auto) 4.7 H Baso % (Auto) 1.0 Neut # (Auto) 4.6 Lymph # (Auto) 1.3 Schuyler # (Auto) 0.7 Eos # (Auto) 0.3 [...] MPV Neut % (Auto) Lymph % (Auto) [place] % (Auto) Eos % (Auto) Baso % (Auto) Neut # (Auto) Lymph # (Auto) [place] # (Auto) Eos # (Auto) Baso # [...] MPV Neut % (Auto) Lymph % (Auto) [place] % (Auto) Eos % (Auto) Baso % (Auto) Neut # (Auto) Lymph # (Auto) [place] # (Auto) Eos # (Auto) Baso # [...] improvement Instructions 1:: followup with neurology at [facility] as already scheduled Discharge Instructions Activity: increase [...] Verónica Atkinson Billing Billing Category Observation Discharge: 64804 OD Documented By: BRANT Cabrera 04/23/22 0830 Signed By: <Electronically signed by BRANT Atkinson> 04/23/[address] [place] [address] Work Phone: discharge summary Author Jocelyn Polk [facility] Note Date/Time October 19, 2024 3:29 pm [facility] Medical Records Department [address] [place] [address] Instructions for Home/Discharge Instructions 10/19/24 1513 MR#: [id number] Acct: [id number] Name: CHARLI PORRAS Rep #:[id number] : 1950 74 From: Jocelyn Polk MD PCP: [facility] Status:ADM IN Discharge Instructions DC O2, CPAP, BIPAP needs Home O2 Discharge instructions: No Dressing / Incision Discharge Activity: - (Increase activity as tolerated) Follow Up Care Test Results: Test results from this visit will be discussed in further detail at your follow- up appointment, if applicable. Discharge Plan Admission Admit Date/Time: 10/13/24 23:44 Primary Reason for Your Visit: Altered mental status Attending Provider: Jocelyn Polk Primary Care Provider: ABHISHEK ST Consulting Providers: Bisi Rivera; John Rod Instructions Patient Instructions: ED Fall Prevention Additional Instructions / Restrictions: DISCHARGE INSTRUCTIONS PLEASE READ *Please take this with you to your next doctors appointment* -As discussed your gabapentin has been decreased to 400 mg 3 times a day to help minimize sedation - your Seroquel was also decreased to 25 mg daily to help minimize sedation -You have also done well on tramadol three times daily, you would benefit from continuing this dosing until following up with your outpatient prescribing physician for further evaluation and instruction - due to constipation you will be given a prescription for Dulcolax to take twice daily -Please call your primary care provider's office upon discharge to schedule a hospital follow up within 1 week. -For any concerning signs or symptoms please call 911 or proceed to the nearest emergency department Discharge Orders/Prescriptions Prescriptions: New docusate sodium 100 mg Capsule 200 mg PO BID 10 Days Qty: 40 0RF Continued allopurinol 100 MG tablet 100 mg PO DAILYCM Centrum Silver 1 EACH tablet 1 ea PO DAILY insulin glargine [Basaglar KwikPen U-100 Insulin] 100 unit/mL (3 mL) insulin pen 75 unit subcut QPM tamsulosin 0.4 mg capsule 0.4 mg PO DAILY donepezil 10 mg tablet 10 mg PO QHS Trulicity 3 mg/0.5 mL pen injector 3 mg subcut QWEEK duloxetine 60 mg capsule,delayed release(DR/EC) 60 mg PO DAILY lisinopril 2.5 mg tablet 2.5 mg PO DAILY pramipexole 0.125 mg tablet 0.125 mg PO BID ezetimibe 10 mg tablet 10 mg PO DAILY glipizide 10 mg tablet extended release 24hr 10 mg PO DAILY Jardiance 25 mg tablet 25 mg PO DAILY levothyroxine 50 mcg tablet 50 mcg PO DAILY trazodone 50 mg Tablet 50 mg PO QHS Qty: 0 0RF Rx Instructions: Home medication. trazodone 50 mg Tablet 50 mg PO DAILY@1700 Qty: 0 0RF Rx Instructions: Home medication. Changed tramadol 50 mg tablet 50 mg PO Q8H PRN (Reason: pain) Qty: 30 0RF gabapentin 800 MG tablet 400 mg PO TIDCM Qty: 45 0RF quetiapine 50 mg tablet 25 mg PO DAILY 30 Days Qty: 30 0RF Discontinued tizanidine 2 mg Tablet 4 mg PO QPM PRN (Reason: muscle spasms) Qty: 0 0RF cefdinir 300 mg capsule 300 mg PO BID 4 Days Qty: 8 0RF Referrals / Follow Up: ABHISHEK ST CRNP [Primary Care Provider] - Within 1 Week Disposition Disposition (needs filled in before D/C Order can be placed): Home, Self Care 10/19/24 1529<Electronically signed by Jocelyn Polk MD>Jocelyn Polk MD CC: MELY DUARTE; Dr. Bisi Rivera, DO; Dr. 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 Diabetes mellitus chronic Hyperlipidemia chronic [facility] Work Phone: evalrncvqo note* Diagnosis Onset Date Resolution Status Morbid obesity acute Abdominal pain resolved Acute confusion resolved Acute UTI resolved Candiduria resolved Acute UTI acute Encephalopathy acute Morbid obesity acute [facility] Work Phone: evalulabak noteNo assessment information available [facility] Work Phone: Progress note Author Barbara Gipson [facility] April 23, 2022 12:41pm Note Date/Time April 23, 2022 12:41pm [address] [address] Wound Care Progress Note Signed Patient: CHARLI PORRAS MR#: [id number] : 1950 Acct:[id number] Age/Sex: 71 / M ADM Date: Loc: 2004-05 Date of Service: 2 Clinician: Barbara Gipson RN cc: Wound Care Progress Note - Wound Care Date of Admission: 04/19/22 05:52 Reason for Consult: coccyx wound Significant History: Medical history: Reports anemia, arthritis, diabetes, hypertension and renal disease Additional Medical History: bundle branch block / dvt / grayling filter Surgical history: Reports adenoidectomy, cholecystectomy, knee [...] Date Recorded By Document 04/23/22 11:36 [email or web address] [id number] 04/23/22 11:38 WATKTAS 04/23/22 11:36 Incision/Wound/Dressing Assessment & Care [ ] Re-assess and measure wounds every Thursday [ ] [Wound Protocol: S.SENIOR SOFTWARE QA ENGINEER] Right Buttock -Wound Type Abrasion -Drainage Amount None -Odor No Odor -Wound Bed Appearance Red,Peeling Skin -Length (cm) 2.0 -Width (cm) 1.0 -Depth (cm) 0.1 -Margin Description Indistinct -Surrounding Tissue Appearance [place] -Surrounding Tissue Temperature Warm -Dressing Status Open to Air -Irrigant Solution Soap and Water -Skin Cream/Lotion Calazyme Left Ishium -Wound Type Abrasion -Drainage Amount None -Odor No Odor -Wound Bed Appearance Red,Peeling Skin -Length (cm) 3.0 -Width (cm) 2.0 -Depth (cm) 0.1 -Margin Description Indistinct -Surrounding Tissue Appearance [place] -Surrounding Tissue Temperature Warm -Dressing Status Open [...] signed by Barbara Gipson RN> 04/23/22 1141 [facility] Work Phone: reason for referral (narrative)No reason for referral information availableWTriHealth [facility] Work Phone: [facility] [address] [facility] [address] Dept: [phone] Loc: [phone] Adult Hip and Knee Reconstruction Service Patient [...] FoundNo Family History Records Found Advance Directives No Advanced Directives Records Found Advance Directive Response Recorded Date/ Time Advance Directives No April 12:16am Organ Donor No April 19 022 12:16am Tissue Donor No April 19 12:16am Advance Directive Response Recorded Date/ Time Advance Directives No April 3:33pm Living Will No April 19 3:33pm Organ Donor No April 19 3:33pm Power of Skein Yarn Dyer Helper No April 19, 2022 3:33pm Tissue Donor No April 19 3:33pm Advance Directive Response Recorded Date/ Time Advance Directives No May 31, 2022 6:53pm Living Will No May 31 6:53pm Organ Donor No May 31 6:53pm Power of Skein Yarn Dyer Helper No May 31, 2022 6:53pm Relationship Ariadna () cell phone [phone] June 01, 2022 1:07pm Tissue Donor No May 31 6:53pm Advance Directive Response Recorded Date/ Time Living Will No November 06, 2022 2 :32pm Power of Skein Yarn Dyer Helper No November 06, 2022 2:32pm Advance Directive Response Recorded Date/ Time Living Will No August 20, 2024 12:00am Do you have a Healthcare Power of Skein Yarn Dyer Helper? No August 20, 2024 12:00am Advance Directive Response Recorded Date/ Time Do you have a Healthcare Pow er of Skein Yarn Dyer Helper? Yes October 13, 2024 8:30pm Name of Medical Power of Skein Yarn Dyer Helper Ariadna Gautam [email or web address] October 13, 2024 8:30pm Living Will No August 20, 2024 12:00am Do you have a Healthcare Pow er of Skein Yarn Dyer Helper? No August 20, 2024 12:00am Advance Directive Response Recorded Date/ Time Do you have a Healthcare Pow er of Skein Yarn Dyer Helper? No October 14, 2024 2:17am Name of Medical Power of Skein Yarn Dyer Helper Ariadna Gautam [email or web address] October 13, 2024 8:30pm Living Will No August 20, 2024 12:00am Do you have a Healthcare Pow er of Skein Yarn Dyer Helper? No August 20, 2024 12:00am Chief Complaint [...] dependent diabetes mellitus Apri l 2024 3:15am Chief Complaint Admit Date SEPSIS August 20, 2024 2:4 0am UROSEPSIS August 20, 2024 3:1 5am UROSEPSIS August 21, 2024 7:1 4am UROSEPSIS August 22, 2024 8:0 5am UROSEPSIS August 23, 2024 11: 17am SEPSIS 2/2 UTI October 13, 2024 11:4 4pm Reason for Visit Admit Date Acute metabolic encephalopathy August 3:15am UTI (urinary tract infection) August 3:15am MISTY (acute kidney injury) August 20 3:15am Septic shock August 20, 2024 3:1 5am CKD (chronic kidney disease), stage III August 20, 2024 3:15am Dementia August 20, 2024 3:1 5am Insulin dependent diabetes mellitus Apri l 2024 3:15am Chief Complaint Admit Date SEPSIS August 20, 2024 2:4 0am UROSEPSIS August 20, 2024 3:1 5am UROSEPSIS August 21, 2024 7:1 4am UROSEPSIS August 22, 2024 8:0 5am UROSEPSIS August 23, 2024 11: 17am SEPSIS 2/2 UTI October 13, 2024 11:4 4pm SEPSIS 2/2 UTI October 14, 2024 6:36 pm SEPSIS 2/2 UTI October 15, 2024 5:14 pm SEPSIS 2/2 UTI October 16, 2024 12:3 4pm SEPSIS 2/2 UTI October 17, 2024 7:06 pm Reason for Visit Admit Date Acute metabolic encephalopathy August 3:15am UTI (urinary tract infection) August 3:15am MISTY (acute kidney injury) August 20 3:15am Septic shock August 20, 2024 3:1 5am CKD (chronic kidney disease), stage III August 20, 2024 3:15am Dementia August 20, 2024 3:1 5am Insulin dependent diabetes mellitus Apri l 2024 3:15am Acute metabolic encephalopathy October 11:44pm Lactic acidosis October 13, 2024 11:4 4pm Physical debility October 13, 2024 11:4 4pm Sepsis October 13, 2024 11:4 4pm UTI (urinary tract infection) October 13, 2024 11:44pm Additional Source Comments (unrecognized sect ion and content) No Status Records FoundNo Status Records FoundNo Status Records FoundNo Status Records FoundNo Status Records FoundNo Status Records FoundNo Status Records FoundNo Status Records Found INFORMATION SOURCE (unrecogn ized section and content) DATE CREATED AUTHOR 02/10/2019 [facility] DATE CREATED AUTHOR AUTHOR'S ORGANIZ ATION 05/12/2019 [facility] DATE CREATED AUTHOR AUTHOR'S ORGANIZ ATION 07/18/2020 [facility] ([place]) DATE CREATED AUTHOR AUTHOR'S ORGANIZ ATION 03/15/2022 [facility] DATE CREATED AUTHOR AUTHOR'S ORGANIZ ATION 06/11/2022 [facility] DATE CREATED AUTHOR AUTHOR'S ORGANIZ ATION 07/10/2022 [facility] DATE CREATED AUTHOR AUTHOR'S ORGANIZ ATION 01/10/2023 [facility] ([place]) DATE CREATED AUTHOR AUTHOR'S ORGANIZ ATION 10/28/2024 [facility] Care Teams (unrecognized sec tion and content) [...] End: August 23, 2024 Dr. Saroj Gutierrez , DO Admit [...] t: August 21, 2024 Dr. Lance Bonner , Other Provider Active Start : August 21, [...] t: August 21, 2024 Dr. Triston Ruggiero DO Other Provider Active St art: August [...] Active Armen Carl MD Other Provider Active [facility] Other Provider Active Judy Boo MD Attending Provider Active Team Status: Active Member Role Status Dates Ericka Cassidy Primary Care Provider Active Thompson Hayden MD Emergency Provider Active Verito Devi MD Admit Provider, Other Provider Acti ve Charisse Valencia MD Other Provider Active Armen Carl MD Other Provider Active [facility] Other Provider Active Mary Beth [...] Active Armen Carl MD Other Provider Active [facility] Other Provider Active BRANT Cabrera Attending Provider Active Team Status: Inactive Member Role Status Dates Ericka Cassidy Primary Care Provider Active Thompson Hayden MD Emergency Provider Active Verito Devi MD Admit Provider, Attending Provider Active Charisse Valencia MD Other Provider Active Armen Carl MD Other Provider Active [facility] Other Provider Active Team Status: Active Member Role Status Dates Devika Stein Primary Care Provider Active Team Status: Active [...] DO Admit Provider, Attending Prov ider Active Devika Stein Primary Care Provider Active [facility] Other Provider Active Team Status: Active [...] August 20, 2024 Dr. Kaushik Brown , Emergency Provider Active Start: August 20, 2024 Dr. Saroj Gutierrez , Admit Provider Active Start: August 20, 2024 Dr. Saroj Gutierrez , Attending Provider Active Start: August 20, 2024 Team Status: Active Member Role Status Dates MELY DUARTE Primary Care Provider Active Start: October 13, 2024 Dr. Nick Coyle , Emergency Provider Activ e Start: October 13, 2024 Dr. Bisi Rivera , DO Admit Provider Active Start : October 13, 2024 Dr. Bisi Rivera , DO Attending Provider Active S tart: October 13, 2024 Team Status: Inactive Member Role Status Dates MELY DUARTE Primary Care Provider Active Start: October 13, 2024 End: October 19, 2024 Dr. Nick Coyle , DO Emergency Provider Activ e Start: October 13, 2024 End: October 19, 2024 Dr. Bisi Rivera , DO Admit Provider Active Start : October 13, 2024 End: October 19, 2024 Dr. Bisi Rivera , DO Other Provider Active Start : October 13, 2024 End: October 19, 2024 Dr. Jocelyn Polk MD Attending Provider Active Start: October 13, 2024 End: October 19, 2024 Dr. John Rod , DO Other Provider Active S tart: October 13, 2024 End: October 19, 2024 Team Status: Active Member Role Status Dates MELY DUARTE Primary Care Provider Active Start: October 14, 2024 Dr. Nick Coyle , DO Emergency Provider Activ e Start: October 14, 2024 Dr. Bisi Rivera , DO Admit Provider Active Start : October 14, 2024 Dr. Bisi Rivera , DO Other Provider Active Start : October 14, 2024 Dr. Jhon Rod , Attending Provider Active Start: October 14, 2024 Dr. John Rod , DO Other Provider Active S tart: October 14, 2024 Team Status: Active Member Role Status Dates MELY DUARTE Primary Care Provider Active Start: October 15, 2024 Dr. Nick Coyle , DO Emergency Provider Activ e Start: October 15, 2024 Dr. Bisi Rivera , DO Admit Provider Active Start : October 15, 2024 Dr. Bisi Rivera , DO Other Provider Active Start : October 15, 2024 Dr. John Rod , DO Attending Provider Active Start: October 15, 2024 Dr. John Rod , DO Other Provider Active S tart: October 15, 2024 Team Status: Active Member Role Status Dates MELY DUARTE Primary Care Provider Active Start: October 16, 2024 Dr. Nick Coyle DO Emergency Provider Activ e Start: October 16, 2024 Dr. Bisi Rivera , DO Admit Provider Active Start : October 16, 2024 Dr. Bisi Rivera , DO Other Provider Active Start : October 16, 2024 Dr. John Rod , DO Attending Provider Active Start: October 16, 2024 Dr. Jonh Rod , DO Other Provider Active S tart: October 16, 2024 Team Status: Active Member Role Status Dates MELY DUARTE Primary Care Provider Active Start: October 17, 2024 Dr. Nick Coyle DO Emergency Provider Activ e Start: October 17, 2024 Dr. Bisi Rivera , DO Admit Provider Active Start : October 17, 2024 Dr. Bisi Rivera , DO Other Provider Active Start : October 17, 2024 Dr. John Rod DO Attending Provider Active Start: October 17, 2024 Dr. John Rod , Other Provider Active S tart: October 17, 2024 Goals (unrecognized section and content) Goals [...] BE BASED ON THE PRIMARY CLINICAL RECORDS. [employer] [facility]. provides no warranty or guarantee of the accuracy or completeness of information in this document.
[2025-01-07] MEDS: MELATONIN 3 MG TABLET PO (00:20)
[2025-01-07] MEDS: 0.9% Normal Saline (1000mL) 1,000 ML 100 ML IV (00:21)
[2025-01-07] MEDS: Pramipexole Di-HCl 0.125 MG Tablet PO ×3 (00:28→21:27)
[2025-01-07 06:30] VITALS: BP 117/67; PULSE 74; RESP 16; TEMP 36.1; O2SAT 98
[2025-01-07 07:27] LABS: Hematocrit 36.7 % (40-54); Hemoglobin 12.2 g/dL (13.0-16.5); Immature Granulocytes Count 0.050 X10^3/uL (0.0-0.0); Mean Corp Hgb Conc 33.2 g/dL (32-36); Mean Corpuscular Volume 91.8 fL (80-94); Mean Platelet Vol. 9.0 fl (6.2-12.0); NRBC Flagged by Analyzer 0 % (0-5); Platelet Count 112 K/mm3 (150-450); RBC Distribution Width CV 15.0 % (11.6-14.6); RBC Distribution Width SD 51.2 fl (35.1-43.9); Red Blood Count 4.00 M/mm3 (4.6-6.2); White Blood Count 7.5 K/mm3 (4.4-11.0)
[2025-01-07 07:43] LABS: AST(SGOT) 16 U/L (<=37); Alanine Aminotransfer ALT/SGPT 12 U/L (<=46); Albumin, Serum 3.5 g/dL (3.4-4.8); Alkaline Phosphatase 72 U/L (40-129); Anion Gap 11 (5-15); BUN 21 mg/dL (4-19); BUN/Creat Ratio 12.3 RATIO (10-20); Calcium,Total 8.8 mg/dL (7.6-11.0); Carbon Dioxide 20.6 mmol/L (21.0-32.0); Chloride 104 mmol/L (98-108); Estimated Creatinine Clearance 49.59 ml/min (50-250); Globulin 3.4 g/dL (2.2-4.2); Glucose 118 mg/dL (70-99); Potassium 4.1 mmol/L (3.3-5.1)
[2025-01-07 08:24] VITALS: BP 111/67; PULSE 72; RESP 17; TEMP 36.3; O2SAT 98
[2025-01-07 09:17] VITALS: O2SAT 95
--- NOTE | 2025-01-07 11:10 | PCM.PN.HOSP ---
Reason for Visit Chief Complaint: Weakness, confusion, debility. Objective Data Objective Data Vital Signs: Vital Signs Temp Pulse Resp BP Pulse Ox O2 Del Method 97.4 F L 72 17 111/67 95 Room Air 01/07/25 08:24 01/07/25 08:24 01/07/25 08:24 01/07/25 08:24 01/07/25 09:17 01/07/25 09:17 Oxygen Delivery Method Room Air Weight: 286 lb 14.4 oz Body Mass Index (BMI) 42.3 Intake & Output: Intake and Output for Last 24 Hours 01/05/25 01/06/25 01/07/25 23:59 23:59 23:59 Intake Total 1050 / 1050 Output Total 200 / 200 Balance 1050 / 1050 -200 / -200 Lab / Micro Data 01/07/25 06:37 01/07/25 06:37 Labs: Laboratory Results - last 24 hr 01/06/25 17:45: Ammonia 12.8 L 01/06/25 18:31: WBC 8.1, RBC 4.62, Hgb 14.1, Hct 42.2, MCV 91.3, MCH 30.5, MCHC 33.4, RDW Std Deviation 49.8 H, RDW Coeff of Veronica 15.0 H, Plt Count 122 L, MPV 9.6, Immature Gran % (Auto) 0.900, Neut % (Auto) 69.5, Lymph % (Auto) 20.3, Amador % (Auto) 5.7, Eos % (Auto) 2.9, Baso % (Auto) 0.7, Absolute Neuts (auto) 5.6, Absolute Lymphs (auto) 1.64, Nucleated RBC % 0, Sodium 135, Potassium 4.4, Chloride 100, Carbon Dioxide 23.6, Anion Gap 12, BUN 21 H, Creatinine 1.62 H, Estim Creat Clear Calc 53.33, Est GFR (MDRD) Non-Af 44 L, BUN/Creatinine Ratio 12.9, Glucose 156 H, Calcium 9.6, Total Bilirubin 0.56, AST 20, ALT 18, Alkaline Phosphatase 84, Total Protein 7.8, Albumin 3.8, Globulin 4.0, Albumin/Globulin Ratio 1.0 01/06/25 19:55: Urine Color Straw, Urine Clarity Cloudy, Urine pH 6.0, Ur Specific [place]rose 1.015, Urine Protein 30 H, Urine Glucose (UA) 1000 H, Urine Ketones Negative, Urine Occult Blood 250 H, Urine Nitrite Negative, Urine Bilirubin Negative, Urine Urobilinogen Normal, Ur Leukocyte Esterase 500 H, Urine RBC 10-25 SEEN, Urine WBC 25-50 SEEN, Ur Squamous Epith Cells 0-5 SEEN, Urine Bacteria 1+, Urine Mucus 0 SEEN, Urine Yeast 3+ 01/07/25 01:03: POC Glucose 135 H 01/07/25 06:22: POC Glucose 132 H 01/07/25 06:37: WBC 7.5, RBC 4.00 L, Hgb 12.2 L, Hct 36.7 L, MCV 91.8, MCH 30.5, MCHC 33.2, RDW Std Deviation 51.2 H, RDW Coeff of Veronica 15.0 H, Plt Count 112 L, MPV 9.0, Immature Gran % (Auto) 0.700, Neut % (Auto) 61.7, Lymph % (Auto) 25.2, Amador % (Auto) 8.5, Eos % (Auto) 3.2, Baso % (Auto) 0.7, Absolute Neuts (auto) 4.7, Absolute Lymphs (auto) 1.90, Nucleated RBC % 0, Sodium 135, Potassium 4.1, Chloride 104, Carbon Dioxide 20.6 L, Anion Gap 11, BUN 21 H, Creatinine 1.72 H, Estim Creat Clear Calc 49.59 L, Est GFR (MDRD) Non-Af 41 L, BUN/Creatinine Ratio 12.3, Glucose 118 H, Calcium 8.8, Total Bilirubin 0.59, AST 16, ALT 12, Alkaline Phosphatase 72, Total Protein 6.9, Albumin 3.5, Globulin 3.4, Albumin/Globulin Ratio 1.0 Radiography Diagnostic Testing: Radiology Impression Brain CT 01/06/25 19:15 IMPRESSION: 1. No intracranial hemorrhage. No mass effect or midline shift. 2. Chronic involutional and ischemic gliotic white matter changes. Reading Location: [facility] Chest X-Ray 01/06/25 19:20 IMPRESSION: No Acute Findings. Reading Location: [facility] Physical Exam Narrative Patient was admitted with decreased level of alertness, disorientation and visual hallucinations. History of Parkinson disease and dementia. Patient was sleeping and then woke up. Physical exam General: Awake oriented x2, Cooperative. BMI 42.4 kg/m?, morbid obesity HEENT: Atraumatic, PERRLA, EOMI, Normocephalic. Oral: Oral mucosa dry. Neck: Supple, No JVD, Negative Carotid Bruits Chest wall/Lungs: Air entry diminished in bilateral lung bases. No crepitation/rhonchi Cardiovascular: Regular rate and rhythm, Normal S1,S2, No M/G/R Abdomen: Bowel Sounds Present, Soft, Non Tender, Non-Distended : No dysuria. No renal angle tenderness. No suprapubic tenderness. Extremities: No edema, Capillary Refill Less than 3 Seconds Skin: No rashes, No breakdown Musculoskeletal: No Tenderness to Palpation of Joints or Extremities Neurological: Cranial nerves II-XII grossly intact, DTR 2+/4. No acute focal neurological deficit. Psych/Mental Status: Flat affect, retrograde amnesia Assessment & Plan Assessment/Plan (1) Acute encephalopathy: (2) UTI (urinary tract infection): PLAN: Plan The patient is a 74 y/o M admitted with altered level of consciousness/change in mental status. As per patient's he was seeing animals and people not in the room. Denies fever chills cough cold or shortness of breath or focal symptoms of infection history of Parkinson disease frequent UTI and dementia in the past #1. Debility, Adult FTT secondary to Acute Encephalopathy, abnormal UA: [facility] He denies burning pain/acute contact symptoms but has dementia. positive of WBC 25?50 cells, RBC 10-25 cells, LE 500, nitrite negative. Empirically on IV ceftriaxone. Patient was gently hydrated. PT and OT ordered. #2. Chronic Kidney Disease Stage IIIB: Admission BUN/Cr 21/1.62, GFR 44, baseline renal function primarily 1.4-1.9, most recently 10/19/2024 creatinine 1.60, Repeat creatinine 1.72. Continue IV fluid #3. Chronic thrombocytopenia, unclear exact etiology: Admission platelet 122, on baseline about 120,000. #4. Anxiety and Depression/Mood disorder: continue patient home Seroquel, trazodone, duloxetine home regimen with hold for sedation as needed. #5. IDDM with chronic neuropathy: hold oral home regimen, continue home insulin regimen, ADA diet, accu checks w/ ISS, cautiously continue home gabapentin regimen but hold for sedation as needed. #6. BPH with obstructive pathology: Will continue patient on Flomax regimen, monitor for obstruction. #7. Hypertension: Continue home regimen including lisinopril with hold parameters as needed, PRN hydralazine. #8. Parkinson disease with associated dementia unclear severity with visual hallucination: Advised follow-up with neurologist as an outpatient. PT and OT and geriatric social worker. #9. Hypothyroidism: continue patient on levothyroxine regimen. #10. Hyperlipidemia: continue patient home ezetimibe. Not on a statin #11. Morbid Obesity: Weight loss and lifestyle changes encouraged. #12. Gout: Will continue patient on allopurinol regimen. #13. DVT prophylaxis: Lovenox. #14. CODE status: Patient FRANK is his who is present and living will is currently in place. Discussed CODE status at length including difference between FULL code, DNR-CCA and DNR-CC status. Following discussions about the differences in these status, requested DNR-CCA and following further discussions and examples with intubation allowance. Laboratory Results 01/06/25 17:45: Ammonia 12.8 L 01/06/25 18:31: WBC 8.1, RBC 4.62, Hgb 14.1, Hct 42.2, MCV 91.3, MCH 30.5, MCHC 33.4, RDW Std Deviation 49.8 H, RDW Coeff of Veornica 15.0 H, Plt Count 122 L, MPV 9.6, Immature Gran % (Auto) 0.900, Neut % (Auto) 69.5, Lymph % (Auto) 20.3, Amador % (Auto) 5.7, Eos % (Auto) 2.9, Baso % (Auto) 0.7, Absolute Neuts (auto) 5.6, Absolute Lymphs (auto) 1.64, Nucleated RBC % 0, Sodium 135, Potassium 4.4, Chloride 100, Carbon Dioxide 23.6, Anion Gap 12, BUN 21 H, Creatinine 1.62 H, Estim Creat Clear Calc 53.33, Est GFR (MDRD) Non-Af 44 L, BUN/Creatinine Ratio 12.9, Glucose 156 H, Calcium 9.6, Total Bilirubin 0.56, AST 20, ALT 18, Alkaline Phosphatase 84, Total Protein 7.8, Albumin 3.8, Globulin 4.0, Albumin/Globulin Ratio 1.0 01/06/25 19:55: Urine Color Straw, Urine Clarity Cloudy, Urine pH 6.0, Ur Specific Montrose 1.015, Urine Protein 30 H, Urine Glucose (UA) 1000 H, Urine Ketones Negative, Urine Occult Blood 250 H, Urine Nitrite Negative, Urine Bilirubin Negative, Urine Urobilinogen Normal, Ur Leukocyte Esterase 500 H, Urine RBC 10-25 SEEN, Urine WBC 25-50 SEEN, Ur Squamous Epith Cells 0-5 SEEN, Urine Bacteria 1+, Urine Mucus 0 SEEN, Urine Yeast 3+ 01/07/25 01:03: POC Glucose 135 H 01/07/25 06:22: POC Glucose 132 H 01/07/25 06:37: WBC 7.5, RBC 4.00 L, Hgb 12.2 L, Hct 36.7 L, MCV 91.8, MCH 30.5, MCHC 33.2, RDW Std Deviation 51.2 H, RDW Coeff of Veronica 15.0 H, Plt Count 112 L, MPV 9.0, Immature Gran % (Auto) 0.700, Neut % (Auto) 61.7, Lymph % (Auto) 25.2, Amador % (Auto) 8.5, Eos % (Auto) 3.2, Baso % (Auto) 0.7, Absolute Neuts (auto) 4.7, Absolute Lymphs (auto) 1.90, Nucleated RBC % 0, Sodium 135, Potassium 4.1, Chloride 104, Carbon Dioxide 20.6 L, Anion Gap 11, BUN 21 H, Creatinine 1.72 H, Estim Creat Clear Calc 49.59 L, Est GFR (MDRD) Non-Af 41 L, BUN/Creatinine Ratio 12.3, Glucose 118 H, Calcium 8.8, Total Bilirubin 0.59, AST 16, ALT 12, Alkaline Phosphatase 72, Total Protein 6.9, Albumin 3.5, Globulin 3.4, Albumin/Globulin Ratio 1.0 01/07/25 11:53: POC Glucose 113 H Charges/Coding Visit Charges Inpatient E&M: 14701 Subs Hosp L2
--- NOTE | 2025-01-07 13:41 | CASEMGMT ---
CHARLOTTE STRICKLAND Assessment Face to Face with patient for initial transition planning/care coordination assessment. Pt has a history of dementia and is disoriented. There is no family at bedside. TC to pt's , Ariadna, who is agreeable to helping. Care providers, pharmacy, and demographics verified. Admitting dx: Encephalopathy, UTI PCP: Maite Eng Specialists: Denies Preferred Pharmacy: [facility] Insurance: [facility] Dual, [facility] Prescription Benefit: Yes LNOK: Ariadna (W), Lori (Dtr) Living Arrangements: Pt lives with his and adult son in a 2 story home with a FFSU and 3 steps to enter ADLs/IADLs: Pt's provides total care and states that the pt is bedfast Transportation: Pt states that she transports the pt but that it is difficult DME: [facility] with sufficient supplies. Lift chair. Shower chair. BSC. FWW. HHC/SNF: [facility] (SNF in [place]). [facility]. [facility] HH. Plan: Anticipate SNF. Pt's states that she does not feel safe caring for the pt at home in his current condition. At this time, the pt's is requesting the pt to go to [facility] as the 1st FOC. If [facility] is unable to accept, [facility] is the second FOC. Per rounds, pt will be here through the weekend. MARCO A/SUKHI to follow up Thursday. Rao Fuchs RN, CM
[2025-01-07 14:37] VITALS: BP 145/72; PULSE 83; RESP 18; TEMP 36.8; O2SAT 100
[2025-01-07] MEDS: 0.9% Normal Saline (1000mL) 1,000 ML 75 ML IV (14:45)
[2025-01-07 21:20] VITALS: BP 133/64; PULSE 75; RESP 18; TEMP 36.6; O2SAT 100
[2025-01-08 03:53] VITALS: BP 139/64; PULSE 77; RESP 18; TEMP 36.7; O2SAT 100
[2025-01-08 06:00] VITALS: BMI 42.5
[2025-01-08 09:07] VITALS: BP 141/81; PULSE 83; RESP 18; TEMP 36.6; O2SAT 96
[2025-01-08] MEDS: Pramipexole Di-HCl 0.125 MG Tablet PO ×2 (09:12→20:43)
--- NOTE | 2025-01-08 14:01 | PCM.PN.HOSP ---
Reason for Visit Chief Complaint: Weakness, confusion, debility. Objective Data Objective Data Vital Signs: Vital Signs Temp Pulse Resp BP Pulse Ox O2 Del Method 97.9 F 83 18 141/81 H 96 Room Air 01/08/25 09:07 01/08/25 09:07 01/08/25 09:07 01/08/25 09:07 01/08/25 09:07 01/08/25 09:09 Oxygen Delivery Method Room Air Weight: 286 lb 13.142 oz Body Mass Index (BMI) 42.5 Intake & Output: Intake and Output for Last 24 Hours 01/06/25 01/07/25 01/08/25 23:59 23:59 23:59 Intake Total 1050 / 1050 1050 / 1050 1240 / 1240 Output Total 950 / 950 1000 / 1000 Balance 1050 / 1050 100 / 100 240 / 240 Lab / Micro Data 01/07/25 06:37 01/07/25 06:37 Labs: Laboratory Results - last 24 hr 01/07/25 16:14: POC Glucose 163 H 01/07/25 21:25: POC Glucose 125 H 01/08/25 05:16: POC Glucose 224 H 01/08/25 11:28: POC Glucose 206 H Micro: Microbiology 01/06/25 19:55 Urine Catheter - Catheter Urine Culture - Preliminary Yeast Physical Exam Narrative Seen and examined. Patient is more awake and alert. Talking coherent. He said he wants to go home probably tomorrow. Earlier, the patient admitted with decreased level of alertness, disorientation and visual hallucinations. History of Parkinson disease and dementia. Physical exam General: Awake oriented x3, Cooperative. BMI 42.4 kg/m?, morbid obesity HEENT: Atraumatic, PERRLA, EOMI, Normocephalic. Oral: Oral mucosa dry. Neck: Supple, No JVD, Negative Carotid Bruits Chest wall/Lungs: Air entry diminished in bilateral lung bases. No crepitation/rhonchi Cardiovascular: Regular rate and rhythm, Normal S1,S2, No M/G/R Abdomen: Bowel Sounds Present, Soft, Non Tender, Non-Distended : No dysuria. No renal angle tenderness. No suprapubic tenderness. Extremities: No edema, Capillary Refill Less than 3 Seconds Skin: No rashes, No breakdown Musculoskeletal: No Tenderness to Palpation of Joints or Extremities Neurological: Cranial nerves II-XII grossly intact, DTR 2+/4. No acute focal neurological deficit. Psych/Mental Status: Flat affect, retrograde amnesia Assessment & Plan Assessment/Plan (1) Acute encephalopathy: (2) UTI (urinary tract infection): PLAN: Plan The patient is a 74 y/o M admitted with altered level of consciousness/change in mental status. As per patient's he was seeing animals and people not in the room. Denies fever chills cough cold or shortness of breath or focal symptoms of infection history of Parkinson disease frequent UTI and dementia in the past #1. Debility, Adult FTT secondary to Acute Encephalopathy, abnormal UA: [facility] He denies burning pain/acute contact symptoms but has dementia. positive of WBC 25?50 cells, RBC 10-25 cells, LE 500, nitrite negative. Empirically on IV ceftriaxone. Patient was gently hydrated. PT and OT ordered. 01/08: Patient mental status improved after decreasing the antipsychotic medications. He is doing good on Seroquel 50 mg daytime and trazodone 100 mg at night. Besides that he is also on gabapentin 400 mg 3 times daily, decreased to 300 mg 3 times daily. Aricept 10 mg at bedtime. Duloxetine 60 mg daily. Tramadol 50 mg 3 times daily. Urine culture prelim shows yeast 25,000-50 colonies per mL. IV antibiotics ceftriaxone discontinued #2. Chronic Kidney Disease Stage IIIB: Admission BUN/Cr 21/1.62, GFR 44, baseline renal function primarily 1.4-1.9, most recently 10/19/2024 creatinine 1.60, Repeat creatinine 1.72. Continue IV fluid #3. Chronic thrombocytopenia, unclear exact etiology: Admission platelet 122, on baseline about 120,000. #4. Anxiety and Depression/Mood disorder: continue patient home Seroquel, trazodone, duloxetine home regimen with hold for sedation as needed. #5. IDDM with chronic neuropathy: hold oral home regimen, continue home insulin regimen, ADA diet, accu checks w/ ISS, cautiously continue home gabapentin regimen but hold for sedation as needed. #6. BPH with obstructive pathology: Will continue patient on Flomax regimen, monitor for obstruction. #7. Hypertension: Continue home regimen including lisinopril with hold parameters as needed, PRN hydralazine. #8. Parkinson disease with associated dementia unclear severity with visual hallucination: Advised follow-up with neurologist as an outpatient. PT and OT and social media editor. #9. Hypothyroidism: continue patient on levothyroxine regimen. #10. Hyperlipidemia: continue patient home ezetimibe. Not on a statin #11. Morbid Obesity: Weight loss and lifestyle changes encouraged. #12. Gout: Will continue patient on allopurinol regimen. #13. DVT prophylaxis: Lovenox. #14. CODE status: Patient FRANK is his who is present and living will is currently in place. Discussed CODE status at length including difference between FULL code, DNR-CCA and DNR-CC status. Following discussions about the differences in these status, requested DNR-CCA and following further discussions and examples with intubation allowance. Microbiology Past 72 Hours 01/06/25 19:55 Urine Catheter - Catheter Urine Culture - Preliminary Yeast Laboratory Results 01/07/25 16:14: POC Glucose 163 H 01/07/25 21:25: POC Glucose 125 H 01/08/25 05:16: POC Glucose 224 H 01/08/25 11:28: POC Glucose 206 H Charges/Coding Visit Charges Inpatient E&M: 04918 Subs Hosp L2
[2025-01-08 14:03] VITALS: BP 117/58; PULSE 83; RESP 18; TEMP 36.2; O2SAT 98
[2025-01-08] MEDS: Senna/Docusate Sodium 1 Tablet 2 TABLET PO ×2 (14:42→20:47)
[2025-01-08 20:37] VITALS: BP 150/72; PULSE 74; RESP 18; TEMP 37; O2SAT 100
[2025-01-08] MEDS: Insulin Glargine-YFGN 100 UNIT/ML Pen 70 UNIT SC (20:42)
[2025-01-09 04:15] VITALS: BP 165/65; PULSE 71; RESP 18; TEMP 37.1; O2SAT 96
[2025-01-09 06:00] VITALS: BMI 42.7
[2025-01-09 08:10] VITALS: BP 168/60; PULSE 77; RESP 18; TEMP 36.9; O2SAT 98
[2025-01-09] MEDS: Senna/Docusate Sodium 1 Tablet 2 TABLET PO ×2 (10:50→20:20)
[2025-01-09] MEDS: Pramipexole Di-HCl 0.125 MG Tablet PO ×2 (10:50→20:20)
[2025-01-09] MEDS: Polyethylene Glycol 3350 17 GM PACKET PO (10:50)
--- NOTE | 2025-01-09 11:18 | CASEMGMT ---
Addendum entered by Silvina Rouse 01/09/25 12:36: Social Work- [facility] accepted referral and began precert. SW updated pt . SW remains available to follow. MICAELA Josue Original Note: Social Work- Pt remains Ox2, confused. SW called pt to confirm plans for referral to [facility] (FOC) and [facility] (Alternate). Pt reports this remains the preference. SW completed referral to [facility]. SW remains available to follow. MICAELA Josue
[2025-01-09 14:10] VITALS: BP 128/61; PULSE 96; RESP 18; TEMP 36.6; O2SAT 100
--- NOTE | 2025-01-09 15:16 | PCM.PN.HOSP ---
Reason for Visit Chief Complaint: Weakness, confusion, debility. Objective Data Objective Data Vital Signs: Vital Signs Temp Pulse Resp BP Pulse Ox O2 Del Method 97.9 F 96 18 128/61 H 100 Room Air 01/09/25 14:10 01/09/25 14:10 01/09/25 14:10 01/09/25 14:10 01/09/25 14:10 01/09/25 14:45 Oxygen Delivery Method Room Air Weight: 288 lb 5.834 oz Body Mass Index (BMI) 42.7 Intake & Output: Intake and Output for Last 24 Hours 01/07/25 01/08/25 01/09/25 23:59 23:59 23:59 Intake Total 1050 / 1050 1240 / 1240 240 / 240 Output Total 950 / 950 1000 / 1000 500 / 500 Balance 100 / 100 240 / 240 -260 / -260 Lab / Micro Data 01/07/25 06:37 01/07/25 06:37 Labs: Laboratory Results - last 24 hr 01/08/25 16:21: POC Glucose 174 H 01/08/25 20:41: POC Glucose 225 H 01/09/25 05:07: POC Glucose 144 H 01/09/25 10:48: POC Glucose 206 H Micro: Microbiology 01/06/25 19:55 Urine Catheter - Catheter Urine Culture - Preliminary Yeast, not Callie albicans Physical Exam Narrative Seen and examined. Patient is more awake and alert. Talking coherent. He wants to go home but is pending pre-CERT to go to senior living Earlier, the patient admitted with decreased level of alertness, disorientation and visual hallucinations. History of Parkinson disease and dementia. Physical exam General: Awake, oriented x3, Cooperative. BMI 42.4 kg/m?, morbid obesity HEENT: Atraumatic, PERRLA, EOMI, Normocephalic. Oral: Oral mucosa dry. Neck: Supple, No JVD, Negative Carotid Bruits Chest wall/Lungs: Air entry diminished in bilateral lung bases. No crepitation/rhonchi Cardiovascular: Regular rate and rhythm, Normal S1,S2, No M/G/R Abdomen: Bowel Sounds Present, Soft, Non Tender, Non-Distended : No dysuria. No renal angle tenderness. No suprapubic tenderness. Extremities: No edema, Capillary Refill Less than 3 Seconds Skin: No rashes, No breakdown Musculoskeletal: No Tenderness to Palpation of Joints or Extremities. Needs 2 people assist. Neurological: Cranial nerves II-XII grossly intact, DTR 2+/4. No acute focal neurological deficit. Psych/Mental Status: Flat affect, retrograde amnesia Assessment & Plan Assessment/Plan (1) Acute encephalopathy: (2) UTI (urinary tract infection): PLAN: Plan The patient is a 74 y/o M admitted with altered level of consciousness/change in mental status. As per patient's he was seeing animals and people not in the room. Denies fever chills cough cold or shortness of breath or focal symptoms of infection history of Parkinson disease frequent UTI and dementia in the past #1. Debility, Adult FTT secondary to Acute Encephalopathy, abnormal UA: Patient is being admitted [facility] floor. He denies burning pain/acute contact symptoms but has dementia. positive of WBC 25?50 cells, RBC 10-25 cells, LE 500, nitrite negative. Empirically on IV ceftriaxone. Patient was gently hydrated. PT and OT ordered. 01/08: Patient mental status improved after decreasing the antipsychotic medications. He is doing good on Seroquel 50 mg daytime and trazodone 100 mg at night. Besides that he is also on gabapentin 400 mg 3 times daily, decreased to 300 mg 3 times daily. Aricept 10 mg at bedtime. Duloxetine 60 mg daily. Tramadol 50 mg 3 times daily. Urine culture prelim shows yeast 25,000-50 colonies per mL. IV antibiotics ceftriaxone discontinued 01/09: Mental status much improved. Continue same doses. #2. Chronic Kidney Disease Stage IIIB: Admission BUN/Cr 21/1.62, GFR 44, baseline renal function primarily 1.4-1.9, most recently 10/19/2024 creatinine 1.60, Repeat creatinine 1.72. Continue IV fluid 01/09: Monitor kidney function. #3. Chronic thrombocytopenia, unclear exact etiology: Admission platelet 122, on baseline about 120,000. #4. Anxiety and Depression/Mood disorder: continue patient home Seroquel, trazodone, duloxetine home regimen with hold for sedation as needed. #5. IDDM with chronic neuropathy: hold oral home regimen, continue home insulin regimen, ADA diet, accu checks w/ ISS, cautiously continue home gabapentin regimen but hold for sedation as needed. #6. BPH with obstructive pathology: Will continue patient on Flomax regimen, monitor for obstruction. #7. Hypertension: Continue home regimen including lisinopril with hold parameters as needed, PRN hydralazine. #8. Parkinson disease with associated dementia unclear severity with visual hallucination: Advised follow-up with neurologist as an outpatient. PT and OT and certified social workers in health care. #9. Hypothyroidism: continue patient on levothyroxine regimen. #10. Hyperlipidemia: continue patient home ezetimibe. Not on a statin #11. Morbid Obesity: Weight loss and lifestyle changes encouraged. #12. Gout: Will continue patient on allopurinol regimen. #13. DVT prophylaxis: Lovenox. #14. CODE status: Patient FRANK is his who is present and living will is currently in place. Discussed CODE status at length including difference between FULL code, DNR-CCA and DNR-CC status. Following discussions about the differences in these status, requested DNR-CCA and following further discussions and examples with intubation allowance. Microbiology Past 72 Hours 01/06/25 19:55 Urine Catheter - Catheter Urine Culture - Preliminary Yeast Laboratory Results 01/07/25 16:14: POC Glucose 163 H 01/07/25 21:25: POC Glucose 125 H 01/08/25 05:16: POC Glucose 224 H 01/08/25 11:28: POC Glucose 206 H Charges/Coding Visit Charges Inpatient E&M: 86005 Subs Hosp L2
[2025-01-09 19:58] VITALS: BP 124/78; PULSE 89; RESP 16; TEMP 37.1; O2SAT 99
[2025-01-09] MEDS: Insulin Glargine-YFGN 100 UNIT/ML Pen 70 UNIT SC (20:17)
[2025-01-09] MEDS: 0.9% Saline Lock 10 ML Syringe IV ×2 (20:25→23:32)
[2025-01-09 20:40] VITALS: PULSE 81; RESP 18; O2SAT 99
[2025-01-10 03:10] VITALS: BP 142/61; PULSE 76; RESP 17; TEMP 36.8; O2SAT 97
[2025-01-10 04:57] VITALS: PULSE 76; RESP 17; O2SAT 97
[2025-01-10 05:32] LABS: Anion Gap 11 (5-15); BUN 15 mg/dL (4-19); BUN/Creat Ratio 9.1 RATIO (10-20); Calcium,Total 8.3 mg/dL (7.6-11.0); Carbon Dioxide 22.3 mmol/L (21.0-32.0); Chloride 102 mmol/L (98-108); Estimated Creatinine Clearance 53.12 ml/min (50-250); Glucose 140 mg/dL (70-99); Potassium 3.8 mmol/L (3.3-5.1)
--- NOTE | 2025-01-10 07:27 | PCM.PN.HOSP ---
Reason for Visit Chief Complaint: Weakness, confusion, debility. Objective Data Objective Data Vital Signs: Vital Signs Temp Pulse Resp BP Pulse Ox O2 Del Method 98.2 F 76 17 142/61 H 97 Room Air 01/10/25 03:10 01/10/25 04:57 01/10/25 04:57 01/10/25 03:10 01/10/25 04:57 01/10/25 04:57 Oxygen Delivery Method Room Air Weight: 288 lb 5.834 oz Body Mass Index (BMI) 42.7 Intake & Output: Intake and Output for Last 24 Hours 01/08/25 01/09/25 01/10/25 23:59 23:59 23:59 Intake Total 1240 / 1240 240 / 360 200 / 200 Output Total 1000 / 1000 500 / 500 Balance 240 / 240 -260 / -140 200 / 200 Lab / Micro Data 01/07/25 06:37 01/10/25 04:31 Labs: Laboratory Results - last 24 hr 01/09/25 10:48: POC Glucose 206 H 01/09/25 16:51: POC Glucose 177 H 01/09/25 20:15: POC Glucose 145 H 01/10/25 04:31: Sodium 136, Potassium 3.8, Chloride 102, Carbon Dioxide 22.3, Anion Gap 11, BUN 15, Creatinine 1.61 H, Estim Creat Clear Calc 53.12, Est GFR (MDRD) Non-Af 44 L, BUN/Creatinine Ratio 9.1 L, Glucose 140 H, Calcium 8.3 01/10/25 06:15: POC Glucose 149 H Micro: Microbiology 01/06/25 19:55 Urine Catheter - Catheter Urine Culture - Preliminary Yeast, not Callie albicans Physical Exam Narrative Seen and examined. Patient is more awake and alert. Talking coherent. He wants to go home but is pending pre-CERT to go to skilled nursing Earlier, the patient admitted with decreased level of alertness, disorientation and visual hallucinations. History of Parkinson disease and dementia. Physical exam General: Awake, oriented x3, Cooperative. BMI 42.4 kg/m?, morbid obesity HEENT: Atraumatic, PERRLA, EOMI, Normocephalic. Oral: Oral mucosa dry. Neck: Supple, No JVD, Negative Carotid Bruits Chest wall/Lungs: Air entry diminished in bilateral lung bases. No crepitation/rhonchi Cardiovascular: Regular rate and rhythm, Normal S1,S2, No M/G/R Abdomen: Bowel Sounds Present, Soft, Non Tender, Non-Distended : No dysuria. No renal angle tenderness. No suprapubic tenderness. Extremities: No edema, Capillary Refill Less than 3 Seconds Skin: No rashes, No breakdown Musculoskeletal: No Tenderness to Palpation of Joints or Extremities. Needs 2 people assist. Neurological: Cranial nerves II-XII grossly intact, DTR 2+/4. No acute focal neurological deficit. Psych/Mental Status: Flat affect, retrograde amnesia Assessment & Plan Assessment/Plan (1) Acute encephalopathy: (2) UTI (urinary tract infection): PLAN: Plan The patient is a 74 y/o M admitted with altered level of consciousness/change in mental status. As per patient's he was seeing animals and people not in the room. Denies fever chills cough cold or shortness of breath or focal symptoms of infection history of Parkinson disease frequent UTI and dementia in the past #1. Debility, Adult FTT secondary to Acute Encephalopathy, most likely toxic encephalopathy due to multiple antipsychotic medications: [facility] He denies burning pain/acute contact symptoms but has dementia. positive of WBC 25?50 cells, RBC 10-25 cells, LE 500, nitrite negative. Empirically on IV ceftriaxone. Patient was gently hydrated. PT and OT ordered. 01/08: Patient mental status improved after decreasing the antipsychotic medications. He is doing good on Seroquel 50 mg daytime and trazodone 100 mg at night. Besides that he is also on gabapentin 400 mg 3 times daily, decreased to 300 mg 3 times daily. Aricept 10 mg at bedtime. Duloxetine 60 mg daily. Tramadol 50 mg 3 times daily. Urine culture prelim shows yeast 25,000-50 colonies per mL. IV antibiotics ceftriaxone discontinued 01/09: Mental status much improved. Continue same doses. #2. Chronic Kidney Disease Stage IIIB: Admission BUN/Cr 21/1.62, GFR 44, baseline renal function primarily 1.4-1.9, most recently 10/19/2024 creatinine 1.60, Repeat creatinine 1.72. Continue IV fluid 01/09: Monitor kidney function. #3. Chronic thrombocytopenia, unclear exact etiology: Admission platelet 122, on baseline about 120,000. #4. Anxiety and Depression/Mood disorder: continue patient home Seroquel, trazodone, duloxetine home regimen with hold for sedation as needed. #5. IDDM with chronic neuropathy: hold oral home regimen, continue home insulin regimen, ADA diet, accu checks w/ ISS, cautiously continue home gabapentin regimen but hold for sedation as needed. #6. BPH with obstructive pathology: Will continue patient on Flomax regimen, monitor for obstruction. #7. Hypertension: Continue home regimen including lisinopril with hold parameters as needed, PRN hydralazine. #8. Parkinson disease with associated dementia unclear severity with visual hallucination: Advised follow-up with neurologist as an outpatient. PT and OT and nursing home social worker. #9. Hypothyroidism: continue patient on levothyroxine regimen. #10. Hyperlipidemia: continue patient home ezetimibe. Not on a statin #11. Morbid Obesity: Weight loss and lifestyle changes encouraged. #12. Gout: Will continue patient on allopurinol regimen. #13. DVT prophylaxis: Lovenox. #14. CODE status: Patient FRANK is his who is present and living will is currently in place. Discussed CODE status at length including difference between FULL code, DNR-CCA and DNR-CC status. Following discussions about the differences in these status, requested DNR-CCA and following further discussions and examples with intubation allowance. Microbiology Past 72 Hours 01/06/25 19:55 Urine Catheter - Catheter Urine Culture - Preliminary Yeast Laboratory Results 01/07/25 16:14: POC Glucose 163 H 01/07/25 21:25: POC Glucose 125 H 01/08/25 05:16: POC Glucose 224 H 01/08/25 11:28: POC Glucose 206 H
--- NOTE | 2025-01-10 09:37 | CASEMGMT ---
Social Work- SW met with pt to check-in and offer support, as well as provide updates. Pt reports no needs at this time. Pt discussed of 30+ years, children, and grandchildren. Pt uncertain of his age, observed to have confusion regarding son's profession, daughter's age/kids, pt age, and length of marriage . Pt observed to be pleasant and cooperative. SW remains available to follow. Plan: ROCHELLE; pend precert MICAELA Josue
[2025-01-10 09:51] VITALS: BP 156/75; PULSE 74; RESP 18; TEMP 36.6; O2SAT 100
--- NOTE | 2025-01-10 10:13 | TREXTCAR_ITS ---
Diet Diet Order/Speech Therapy: INPATIENT Hospital Diet / Speech Therapy Order(s) 01/09/25 12:51 Diet: Regular - General Type of Dietary Supplement:: John Diet Comments: John w/ breakfast and dinner Routine Orders/Code Status Suppository Type: Dulcolax 10mg Suppository Frequency: Daily PRN Routine Lab Work: BMP (2 weeks, follow with PCP) DC O2, CPAP, BIPAP needs Home O2 Discharge instructions: No Wound(s) buttocks: Wound Type: Pressure Injury 2nd & 3rd toes: Wound Type: Neuropathic/Diabetic Foot Ulcer Therapies Extremity Affected:: Bilateral Lower Physical Therapy: Eval and Treat Occupational Therapy: Eval and Treat Speech Therapy: Eval and Treat Problem/Diagnosis (1) Acute encephalopathy: Status: Acute Code(s): G93.40 - Encephalopathy, unspecified (2) UTI (urinary tract infection): Status: Acute Code(s): N39.0 - Urinary tract infection, site not specified Plan The patient is a 74 y/o M admitted with altered level of consciousness/change in mental status. As per patient's he was seeing animals and people not in the room. Denies fever chills cough cold or shortness of breath or focal symptoms of infection history of Parkinson disease frequent UTI and dementia in the past #1. Debility, Adult FTT secondary to Acute Encephalopathy, most likely toxic encephalopathy due to multiple antipsychotic medications: [facility] He denies burning pain/acute contact symptoms but has dementia. positive of WBC 25?50 cells, RBC 10-25 cells, LE 500, nitrite negative. Empirically on IV ceftriaxone. Patient was gently hydrated. PT and OT ordered. 01/08: Patient mental status improved after decreasing the antipsychotic medications. He is doing good on Seroquel 50 mg daytime and trazodone 100 mg at night. Besides that he is also on gabapentin 400 mg 3 times daily, decreased to 300 mg 3 times daily. Aricept 10 mg at bedtime. Duloxetine 60 mg daily. Tramadol 50 mg 3 times daily. Urine culture prelim shows yeast 25,000-50 colonies per mL. IV antibiotics ceftriaxone discontinued 01/09: Mental status much improved. Continue same doses. #2. Chronic Kidney Disease Stage IIIB: Admission BUN/Cr 21/1.62, GFR 44, baseline renal function primarily 1.4-1.9, most recently 10/19/2024 creatinine 1.60, Repeat creatinine 1.72. Continue IV fluid 01/09: Monitor kidney function. #3. Chronic thrombocytopenia, unclear exact etiology: Admission platelet 122, on baseline about 120,000. #4. Anxiety and Depression/Mood disorder: continue patient home Seroquel, trazodone, duloxetine home regimen with hold for sedation as needed. #5. IDDM with chronic neuropathy: hold oral home regimen, continue home insulin regimen, ADA diet, accu checks w/ ISS, cautiously continue home gabapentin regimen but hold for sedation as needed. #6. BPH with obstructive pathology: Will continue patient on Flomax regimen, monitor for obstruction. #7. Hypertension: Continue home regimen including lisinopril with hold parameters as needed, PRN hydralazine. #8. Parkinson disease with associated dementia unclear severity with visual hallucination: Advised follow-up with neurologist as an outpatient. PT and OT and nephrology social worker. #9. Hypothyroidism: continue patient on levothyroxine regimen. #10. Hyperlipidemia: continue patient home ezetimibe. Not on a statin #11. Morbid Obesity: Weight loss and lifestyle changes encouraged. #12. Gout: Will continue patient on allopurinol regimen. #13. DVT prophylaxis: Lovenox. #14. CODE status: Patient FRANK is his who is present and living will is currently in place. Discussed CODE status at length including difference between FULL code, DNR-CCA and DNR-CC status. Following discussions about the differences in these status, requested DNR-CCA and following further discussions and examples with intubation allowance. Microbiology Past 72 Hours 01/06/25 19:55 Urine Catheter - Catheter Urine Culture - Preliminary Yeast Laboratory Results 01/07/25 16:14: POC Glucose 163 H 01/07/25 21:25: POC Glucose 125 H 01/08/25 05:16: POC Glucose 224 H 01/08/25 11:28: POC Glucose 206 H Allergies/Procedures Done in Hospital Allergies ibuprofen Adverse Reaction (Verified 01/06/25 18:17) Abd cramps/diarrhea Type of Care/Length of Stay Estimated LOS: Convalescent Care Less Than 30 days Type of Care Needed: Skilled Rehab Potential: Good Prognosis: Good Additional Orders/Day of Discharge Day of Discharge: 01/10/25 Dietary and Speech Recommendations Dietitian Recommendations/Changes: Will liberalize diet to Regular d/t poor po intake at meals Will order glucerna shake tid w/ medpass for increased nutrition if consumed Will order john bid w/ meals for increased nutrition to help w/ wound healing if consumed. Discharge Plan Admission Admit Date/Time: 01/06/25 22:57 Attending Provider: Mao Muse Primary Care Provider: ABHISHEK ST Consulting Providers: Ute Hancock Instructions Patient Instructions: ED ALOC, ED Confusion Discharge Orders/Prescriptions Prescriptions: New acetaminophen 325 mg Tablet 650 mg PO Q4H PRN PRN (Reason: Fever, pain 1-02/10) Qty: 0 0RF sennosides-docusate sodium [Stimulant Laxative Plus] 8.6-50 mg Tablet 2 tab PO BID Qty: 0 0RF insulin lispro [Humalog KwikPen Insulin] 100 unit/mL Insulin Pen See Protocol subcut ACHS Qty: 0 0RF Protocol: 3. Sliding Scale Insulin Med Dosing Condition: 150-189 mg/dl = 1 unit Condition: 190-229 mg/dl = 2 units Condition: 230-269 mg/dl = 3 units Condition: 270-309 mg/dl = 4 units Condition: 310-349 mg/dl = 5 units Condition: 350-399 mg/dl = 6 units Condition: 400-449 mg/dl = 7 units Condition: Greater than 449 call physician Protocol Text: - Use for Total Daily Dose of Insulin 37-55 units - Obsese, infected, or steroid patients MEDIUM DOSING ALGORITHIM Continued allopurinol 100 MG tablet 100 mg PO DAILYCM Centrum Silver 1 EACH tablet 1 ea PO DAILY insulin glargine [Basaglar KwikPen U-100 Insulin] 100 unit/mL (3 mL) insulin pen 75 unit subcut QPM tamsulosin 0.4 mg capsule 0.4 mg PO DAILY gabapentin 800 MG tablet 400 mg PO TIDCM Qty: 45 0RF donepezil 10 mg tablet 10 mg PO QHS Trulicity 3 mg/0.5 mL pen injector 3 mg subcut QWEEK duloxetine 60 mg capsule,delayed release(DR/EC) 60 mg PO DAILY lisinopril 2.5 mg tablet 2.5 mg PO DAILY pramipexole 0.125 mg tablet 0.125 mg PO BID ezetimibe 10 mg tablet 10 mg PO DAILY glipizide 10 mg tablet extended release 24hr 10 mg PO DAILY Jardiance 25 mg tablet 25 mg PO DAILY levothyroxine 50 mcg tablet 50 mcg PO DAILY tramadol 50 mg tablet 50 mg PO TID quetiapine 100 mg tablet 100 mg PO BID trazodone 50 mg Tablet 100 mg PO QHS Rx Instructions: Home medication. quetiapine 50 mg tablet 50 mg PO DAILY Discontinued docusate sodium 100 mg Capsule 200 mg PO BID 10 Days Qty: 40 0RF trazodone 50 mg Tablet 50 mg PO DAILY@1700 Qty: 0 0RF Rx Instructions: Home medication. cephalexin 250 mg capsule 250 mg PO DAILY Referrals / Follow Up: ABHISHEK ST CRNP [Primary Care Provider] - 3-5 Days if not improving Disposition Disposition (needs filled in before D/C Order can be placed): [facility]
[2025-01-10] MEDS: Senna/Docusate Sodium 1 Tablet 2 TABLET PO (10:47)
[2025-01-10] MEDS: Pramipexole Di-HCl 0.125 MG Tablet PO (10:48)
[2025-01-10] MEDS: Polyethylene Glycol 3350 17 GM PACKET PO (10:48)
[2025-01-10] MEDS: Glucerna Shake 120 ML LIQUID PO (12:13)
--- NOTE | 2025-01-10 12:19 | DS.PCM_ITS ---
Providers Date of Admission: 01/06/25 Date of Discharge: 01/10/25 Primary Care Physician: MELY DUARTE Reason For Visit: ENCEPHALOPATHY, UTI Diagnosis Discharge Diagnosis (1) Acute encephalopathy: Status: Acute Code(s): G93.40 - Encephalopathy, unspecified (2) UTI (urinary tract infection): Status: Acute Code(s): N39.0 - Urinary tract infection, site not specified Plan The patient is a 74 y/o M admitted with altered level of consciousness/change in mental status. As per patient's he was seeing animals and people not in the room. Denies fever chills cough cold or shortness of breath or focal symptoms of infection history of Parkinson disease frequent UTI and dementia in the past #1. Debility, Adult FTT secondary to Acute Encephalopathy, most likely toxic encephalopathy due to multiple antipsychotic medications: Patient is being admitted to [facility] floor. He denies burning pain/acute contact symptoms but has dementia. positive of WBC 25?50 cells, RBC 10-25 cells, LE 500, nitrite negative. Empirically on IV ceftriaxone. Patient was gently hydrated. PT and OT ordered. 01/08: Patient mental status improved after decreasing the antipsychotic medications. He is doing good on Seroquel 50 mg daytime and trazodone 100 mg at night. Besides that he is also on gabapentin 400 mg 3 times daily, decreased to 300 mg 3 times daily. Aricept 10 mg at bedtime. Duloxetine 60 mg daily. Tramadol 50 mg 3 times daily. Urine culture prelim shows yeast 25,000-50 colonies per mL. IV antibiotics ceftriaxone discontinued 01/09: Mental status much improved. Continue same doses. 01/10: Patient discharged on inpatient regimen of Seroquel 50 mg daily and trazodone 100 mg at night. UTI ruled out. #2. Chronic Kidney Disease Stage IIIB: Admission BUN/Cr 21/1.62, GFR 44, baseline renal function primarily 1.4-1.9, most recently 10/19/2024 creatinine 1.60, Repeat creatinine 1.72. Continue IV fluid 01/09: Monitor kidney function. 01/10: Advised to change tramadol 50 mg 3 times daily as needed #3. Chronic thrombocytopenia, unclear exact etiology: Admission platelet 122, on baseline about 120,000. #4. Anxiety and Depression/Mood disorder: continue patient home Seroquel, trazodone, duloxetine home regimen with hold for sedation as needed. #5. IDDM with chronic neuropathy: hold oral home regimen, continue home insulin regimen, ADA diet, accu checks w/ ISS, cautiously continue home gabapentin regimen but hold for sedation as needed. 01/10 patient's glucoses controlled on Lantus insulin. Home oral hypoglycemic agent including empagliflozin medications resumed. #6. BPH with obstructive pathology: Will continue patient on Flomax regimen, monitor for obstruction. #7. Hypertension: Continue home regimen including lisinopril with hold parameters as needed, PRN hydralazine. #8. Parkinson disease with associated dementia unclear severity with visual hallucination: Advised follow-up with neurologist as an outpatient. PT and OT and social studies teacher. #9. Hypothyroidism: continue patient on levothyroxine regimen. #10. Hyperlipidemia: continue patient home ezetimibe. Not on a statin #11. Morbid Obesity: Weight loss and lifestyle changes encouraged. #12. Gout: Will continue patient on allopurinol regimen. #13. DVT prophylaxis: Lovenox. #14. CODE status: Patient HCPGREER is his who is present and living will is currently in place. Discussed CODE status at length including difference between FULL code, DNR-CCA and DNR-CC status. Following discussions about the differences in these status, requested DNR-CCA and following further discussions and examples with intubation allowance. Discharge medication reconciliation done. Discharge follow-up instructions completed. Discharge process discussed with the patient and all questions were answered to patient's satisfaction. Follow with PCP in 1 to 2 weeks Total time spent, exact 35 minutes on discharge meds reconciliation, examination, coordination of care with nurses and ancillary staff, review of imaging and blood test and discussion with the patient on follow-up instructions. Microbiology Past 72 Hours 01/06/25 19:55 Urine Catheter - Catheter Urine Culture - Preliminary Yeast Laboratory Results 01/07/25 16:14: POC Glucose 163 H 01/07/25 21:25: POC Glucose 125 H 01/08/25 05:16: POC Glucose 224 H 01/08/25 11:28: POC Glucose 206 H Medications at Discharge Home Medications allopurinol 100 mg tablet 100 mg PO DAILYCM gout 05/03/13 [id number] acid 0.4 mg-lycopene 300 mcg-lutein 250 mcg tablet (Centrum Silver) 1 ea PO DAILY vitamin 05/03/13 donepezil 10 mg tablet 10 mg PO QHS dementia 03/18/24 dulaglutide 3 mg/0.5 mL subcutaneous pen injector (Trulicity) 3 mg subcut QWEEK diabetes 03/18/24 duloxetine 60 mg capsule,delayed release 60 mg PO DAILY depression 03/18/24 empagliflozin 25 mg tablet (Jardiance) 25 mg PO DAILY diabetes 03/18/24 ezetimibe 10 mg tablet 10 mg PO DAILY cholesterol 03/18/24 glipizide 10 mg tablet, extended release 24 hr 10 mg PO DAILY diabetes 03/18/24 levothyroxine 50 mcg tablet 50 mcg PO DAILY thyroid 03/18/24 lisinopril 2.5 mg tablet 2.5 mg PO DAILY blood pressure 03/18/24 pramipexole 0.125 mg tablet 0.125 mg PO BID parkinsons 03/18/24 insulin glargine 100 unit/mL (3 mL) subcutaneous pen (Basaglar KwikPen U-100 Insulin) 75 unit subcut QPM diabetes 10/13/24 tamsulosin 0.4 mg capsule 0.4 mg PO DAILY urine flow 10/15/24 gabapentin 800 mg tablet 400 mg (1/2 x 800 mg) PO TIDCM nerve pain #45 tabs 10/19/24 tramadol 50 mg tablet 50 mg PO TID pain 01/06/25 quetiapine 100 mg tablet 100 mg PO BID . 01/07/25 quetiapine 50 mg tablet 50 mg PO DAILY mental health 01/07/25 trazodone 50 mg tablet 100 mg PO QHS 01/07/25 acetaminophen 325 mg tablet 650 mg (2 x 325 mg) PO Q4H PRN PRN Fever, pain 1- 02/10 #0 tabs 01/10/25 insulin lispro 100 unit/mL subcutaneous pen (Humalog KwikPen (U-100) Insulin) See Protocol subcut ACHS #0 mL 01/10/25 sennosides 8.6 mg-docusate sodium 50 mg tablet (Stimulant Laxative Plus) 2 tab PO BID #0 tabs 01/10/25 Physical Exam Narrative Seen and examined. Patient is more awake and alert. Talking coherent. Patient had bowel movement yesterday Still needs 2 people assist to stand up because of morbid obesity. Physical exam General: Awake, oriented x3, Cooperative. BMI 42.4 kg/m?, morbid obesity HEENT: Atraumatic, PERRLA, EOMI, Normocephalic. Oral: Oral mucosa dry. Neck: Supple, No JVD, Negative Carotid Bruits Chest wall/Lungs: Air entry diminished in bilateral lung bases. No crepitation/rhonchi Cardiovascular: Regular rate and rhythm, Normal S1,S2, No M/G/R Abdomen: Bowel Sounds Present, Soft, Non Tender, Non-Distended : No dysuria. No renal angle tenderness. No suprapubic tenderness. Extremities: No edema, Capillary Refill Less than 3 Seconds Skin: No rashes, No breakdown Musculoskeletal: No Tenderness to Palpation of Joints or Extremities. Needs 2 people assist. Neurological: Cranial nerves II-XII grossly intact, DTR 2+/4. No acute focal neurological deficit. Psych/Mental Status: Flat affect, retrograde amnesia Weight / BMI Weight Weight: 288 lb 5.834 oz Body Mass Index (BMI) 42.7 ABG / Lab / Microbiology Data 01/07/25 06:37 01/10/25 04:31 Laboratory: Laboratory Results - last 24 hr 01/09/25 16:51: POC Glucose 177 H 01/09/25 20:15: POC Glucose 145 H 01/10/25 04:31: Sodium 136, Potassium 3.8, Chloride 102, Carbon Dioxide 22.3, Anion Gap 11, BUN 15, Creatinine 1.61 H, Estim Creat Clear Calc 53.12, Est GFR (MDRD) Non-Af 44 L, BUN/Creatinine Ratio 9.1 L, Glucose 140 H, Calcium 8.3 01/10/25 06:15: POC Glucose 149 H Microbiology: Microbiology 01/06/25 19:55 Urine Catheter - Catheter Urine Culture - Final Yeast, not Callie albicans Yeast, not Callie albicans#2 D/C Instructions DC O2, CPAP, BIPAP Needs Home O2 Discharge instructions: No Meaningful Use Info Meaningful Use Meaningful Use Diagnoses (Choose all that apply): None applicable Discharge Plan Admission Admit Date/Time: 01/06/25 22:57 Primary Reason for Your Visit: Acute encephalopathy Attending Provider: Mao Muse Primary Care Provider: ABHISHEK ST Consulting Providers: Ute Hancock Instructions Patient Instructions: ED ALOC, ED Confusion Additional Instructions / Restrictions: Advised change tramadol to 50 mg 3 times daily as needed for severe pain Discharge Orders/Prescriptions Prescriptions: New acetaminophen 325 mg Tablet 650 mg PO Q4H PRN PRN (Reason: Fever, pain 1-02/10) Qty: 0 0RF sennosides-docusate sodium [Stimulant Laxative Plus] 8.6-50 mg Tablet 2 tab PO BID Qty: 0 0RF insulin lispro [Humalog KwikPen Insulin] 100 unit/mL Insulin Pen See Protocol subcut ACHS Qty: 0 0RF Protocol: 3. Sliding Scale Insulin Med Dosing Condition: 150-189 mg/dl = 1 unit Condition: 190-229 mg/dl = 2 units Condition: 230-269 mg/dl = 3 units Condition: 270-309 mg/dl = 4 units Condition: 310-349 mg/dl = 5 units Condition: 350-399 mg/dl = 6 units Condition: 400-449 mg/dl = 7 units Condition: Greater than 449 call physician Protocol Text: - Use for Total Daily Dose of Insulin 37-55 units - Obsese, infected, or steroid patients MEDIUM DOSING ALGORITHIM Continued allopurinol 100 MG tablet 100 mg PO DAILYCM Centrum Silver 1 EACH tablet 1 ea PO DAILY insulin glargine [Basaglar KwikPen U-100 Insulin] 100 unit/mL (3 mL) insulin pen 75 unit subcut QPM tamsulosin 0.4 mg capsule 0.4 mg PO DAILY gabapentin 800 MG tablet 400 mg PO TIDCM Qty: 45 0RF donepezil 10 mg tablet 10 mg PO QHS Trulicity 3 mg/0.5 mL pen injector 3 mg subcut QWEEK duloxetine 60 mg capsule,delayed release(DR/EC) 60 mg PO DAILY lisinopril 2.5 mg tablet 2.5 mg PO DAILY pramipexole 0.125 mg tablet 0.125 mg PO BID ezetimibe 10 mg tablet 10 mg PO DAILY glipizide 10 mg tablet extended release 24hr 10 mg PO DAILY Jardiance 25 mg tablet 25 mg PO DAILY levothyroxine 50 mcg tablet 50 mcg PO DAILY tramadol 50 mg tablet 50 mg PO TID quetiapine 100 mg tablet 100 mg PO BID trazodone 50 mg Tablet 100 mg PO QHS Rx Instructions: Home medication. quetiapine 50 mg tablet 50 mg PO DAILY Discontinued docusate sodium 100 mg Capsule 200 mg PO BID 10 Days Qty: 40 0RF trazodone 50 mg Tablet 50 mg PO DAILY@1700 Qty: 0 0RF Rx Instructions: Home medication. cephalexin 250 mg capsule 250 mg PO DAILY Referrals / Follow Up: ABHISHEK ST CRNP [Primary Care Provider] - 3-5 Days if not improving Disposition Disposition (needs filled in before D/C Order can be placed): Group Home Facility Charges/Coding Visit Charges Inpatient E&M: 89442 Disch Hosp >30min
--- NOTE | 2025-01-10 12:31 | CASEMGMT ---
Social Work Precert has been obtained.? Physician updated and pt is ready for discharge today.? [id number] convalescent form completed in [facility]. DCA notified of discharge. DCA to complete all final arrangements and notifications. Disposition:[facility], skilled level of care MICAELA Josue
--- NOTE | 2025-01-10 12:48 | CASEMGMT ---
Discharge Planning Discharge orders, signed med list, and transport time sent to [facility]. Physicians will transport pt by wheelchair at 1:30p. Nursing, SW, pt, and his updated. Karolina Nur DC Planning Asst.
--- NOTE | 2025-01-10 15:22 | PHA.DC_ITS ---
Pharmacy [place] Med Reconciliation Pharmacy Service has performed discharge medication reconciliation for this patient. The patient's discharge medication list was reviewed for discrepancies and discrepancies were resolved. Medications at Discharge Home Medications allopurinol 100 mg tablet 100 mg PO DAILYCM gout 05/03/13 qyfqwnca-fyo-vrttx acid 0.4 mg-lycopene 300 mcg-lutein 250 mcg tablet (Centrum Silver) 1 ea PO DAILY vitamin 05/03/13 donepezil 10 mg tablet 10 mg PO QHS dementia 03/18/24 dulaglutide 3 mg/0.5 mL subcutaneous pen injector (Trulicity) 3 mg subcut QWEEK diabetes 03/18/24 duloxetine 60 mg capsule,delayed release 60 mg PO DAILY depression 03/18/24 empagliflozin 25 mg tablet (Jardiance) 25 mg PO DAILY diabetes 03/18/24 ezetimibe 10 mg tablet 10 mg PO DAILY cholesterol 03/18/24 glipizide 10 mg tablet, extended release 24 hr 10 mg PO DAILY diabetes 03/18/24 levothyroxine 50 mcg tablet 50 mcg PO DAILY thyroid 03/18/24 lisinopril 2.5 mg tablet 2.5 mg PO DAILY blood pressure 03/18/24 pramipexole 0.125 mg tablet 0.125 mg PO BID parkinsons 03/18/24 insulin glargine 100 unit/mL (3 mL) subcutaneous pen (Basaglar KwikPen U-100 Insulin) 75 unit subcut QPM diabetes 10/13/24 tamsulosin 0.4 mg capsule 0.4 mg PO DAILY urine flow 10/15/24 gabapentin 800 mg tablet 400 mg (1/2 x 800 mg) PO TIDCM nerve pain #45 tabs 10/19/24 quetiapine 100 mg tablet 100 mg PO BID . 01/07/25 quetiapine 50 mg tablet 50 mg PO DAILY mental health 01/07/25 trazodone 50 mg tablet 100 mg PO QHS 01/07/25 acetaminophen 325 mg tablet 650 mg (2 x 325 mg) PO Q4H PRN PRN Fever, pain 1- 02/10 #0 tabs 01/10/25 insulin lispro 100 unit/mL subcutaneous pen (Humalog KwikPen (U-100) Insulin) See Protocol subcut ACHS #0 mL 01/10/25 sennosides 8.6 mg-docusate sodium 50 mg tablet (Stimulant Laxative Plus) 2 tab PO BID #0 tabs 01/10/25 tramadol 50 mg tablet 50 mg PO TID pain 20 days #60 tabs 01/10/25
== END 2025-01-10 13:33 | disposition skilled nursing facility (03) | DRG 689 ==
LOC: ED 19:18 → MS3 23:03
PROVIDERS: Admitting Provider Family Medicine; Emergency Provider Emergency Medicine; PCP Nurse Practitioner Family; Visit Provider Internal Medicine
DX: N39.0 Urinary tract infection, site not specified (principal); G92.8 Other toxic encephalopathy; Z68.41 Body mass index [BMI] 40.0-44.9, adult; Z66 Do not resuscitate; G20.A1 Parkinson's disease without dyskinesia, without mention of fluctuations; E11.40 Type 2 diabetes mellitus with diabetic neuropathy, unspecified; N18.32 Chronic kidney disease, stage 3b; F02.80 Dementia in other diseases classified elsewhere, unspecified severity, without behavioral disturbance, psychotic disturbance, mood disturbance, and anxiety; I12.9 Hypertensive chronic kidney disease with stage 1 through stage 4 chronic kidney disease, or unspecified chronic kidney disease; E03.9 Hypothyroidism, unspecified; F32.A Depression, unspecified; Z79.4 Long term (current) use of insulin; E11.22 Type 2 diabetes mellitus with diabetic chronic kidney disease; E78.5 Hyperlipidemia, unspecified; E66.01 Morbid (severe) obesity due to excess calories; F41.9 Anxiety disorder, unspecified; R53.81 Other malaise; N40.1 Benign prostatic hyperplasia with lower urinary tract symptoms; N13.8 Other obstructive and reflux uropathy; Z79.85 Long-term (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 of injectable non-insulin antidiabetic drugs; Z79.84 Long term (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 of oral hypoglycemic drugs; Z79.899 Other long term (current) drug therapy
CPT/HCPCS: 36415; 70450; 71045; 80048; 80053; 81001; 82140; 82962; 85025; 87086; 87088; 94668; 97162; 97166; 97530; 97535; 99285; A4216; J2405

== ENCOUNTER 2025-01-20 00:21 | Inpatient (IN) | payer MEDICARE, MEDICAID, SELFPAY ==
[2025-01-20] VITALS (12 sets, daily range): BP systolic 80–153; BP diastolic 50–96; PULSE 61–79; RESP 12–18; TEMP 36.2–37; O2SAT 94–100; BMI 42.7; BMI 42.5
[2025-01-20] MEDS: 0.9% Normal Saline (1000mL) 1,000 ML 999 ML IV ×3 (00:21→01:50)
--- OUTSIDE RECORDS SUMMARY | 2025-01-20 01:02 | XMS RPT_ITS | CCD ---
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 Name Role Phone MAO ABBASI Unavailable SHEILA [...] Care Provider MD Thompson Hayden Emergency Provider [phone] MD Verito Devi I Admit Provider MD Verito Devi I Attending Provider MD Charisse Valencia Other Provider MD Armen Carl Other Provider [facility], [facility] Other Provider Eisestefania, Naresh E Admit Provider Eisenhart, Naresh E Attending Provider Devika Stein Primary Care Provider [phone] [facility] [place] Other Provider DEVIKA STEIN Primary Care Unavailable DEVIKA STEIN Attending Unavailable PROVIDER, UNKNOWN Surgeon Unavailable ERICKA CASSIDY Primary Care Unavailabl e KINNEAR, CHRISTOPHER Admitting Unavaila ble KINNEAR, CHRISTAALIYAH Attending Unavaila ble PROVIDER, UNKNOWN Surgeon Unavailable PROVIDER, UNKNOWN Surgeon Unavailable Errol Silva Referring Unavailable Errol Silva Attending Unavailable Eisestefania, Naresh E Admitting Unavailable Eisetsefania Naresh E Attending Unavailable Stein Devika Primary Care Unavailable [facility] [place] Consulting Unavailable Ericka Cassidy Primary Care Unavailable Verito Devi I Admitting Unavailable Verito Devi I Attending Unavailable Charisse Valencia Consulting Unavailable Armen Carl Consulting Unavailable [facility] Consulting Unavailable Care Physician, No Primary Primary Care Provider Unavailable Dr. Kaushik Brown DO Emergency Provider Dr. Saroj Gutierrez DO Admit Provider Dr. Saroj Gutierrez DO Attending Provider Dr. Saroj Gutierrez DO Other Provider Micha KRUSE, Dr. Cavanaugh Attending Provider Elmo KRUSE, Dr. Javed Other Provider Ruben KRUSE, Dr. Churchill Other Provider [facility] EXPRESS[facility] DAIGLE Primary Care Provider [phone] Micha KRUSE, Dr. Cavanaugh Other Provider Damaris KRUSE, Dr. Wilson Other Provider Yahaira KRUSE, Dr. Pink Other Provider Dawson KRUSE, Dr. Malagon Other Provider [phone] Lance Bonner DO Other Provider Morgan KRUSE, Dr. Darnell Brito Other Provider [phone] Andrzej KRUSE, Dr. Palmer Other Provider [phone] Kelsey KRUSE, Dr. Viera Other Provider [phone] Jin KRUSE, Dr. Gallagher Other Provider Shayy KRUSE, Dr. Vaca Other Provider [phone] Evan KRUSE, Dr. Gale Other Provider [phone] Onel KRUSE, Dr. Faulkner Other Provider [phone] Parker KRUSE, Dr. Roberts Other Provider Ladi KRUSE, Dr. Lowe Other Provider Unavailabl beth Vasquez MD, Dr. Turpin Other Provider [phone] Rahel KRUSE, Dr. Gross Other Provider Mary KRUSE, Dr. Epstein Other Provider [phone] Korin KRUSE, Dr. Garcia Other Provider Monik MARCOS, Dr. Goldstein Other Provider Rachel KRUSE, Dr. Osullivan Other Provider [phone] Dr. Migue Owens MD Other Provider [phone] Froilan Dan DO Other Provider Tim KRUSE, Dr. Garcia Other Provider Hemant KRUSE, Dr. Henry Other Provider Dr. Nick Coyle DO Emergency Provider Dr. Bisi Rivera DO Admit Provider Dr. Bisi Rivera DO Attending Provider Dr. Bisi Rivera DO Other Provider Jam KRUSE, Dr. Banks Attending Provider Viola MARCOS, Dr. Lopez Other Provider Tereletsmanuel DO, Dr. Lopez Attending Provider SPRING LIGHTER, ABHISHEK Primary Care Provider Jam KRUSE, Dr. Banks Other Provider Porfirio KRUSE, Gene Emergency Provider Santi KRUSE, Dr. Ute Davis Admit Provider Santi KRUSE, Dr. Ute Davis Attending Provider Santi KRUSE, Dr. Ute Davis Other Provider Micha KRUSE, Dr. Cavanaugh Attending Provider Micha KRUSE, Dr. Cavanaugh Other Provider Ezequiel Garcia Attending Unavailabl e SPRING, ABHISHEK Primary Care Unavailable SPRING, ABHISHEK Primary Care Unavailable Ute Hancock Consulting Unavailable Mao Muse Attending Unavailable Ute Hancock Admitting Unavailable Mao Muse Consulting Unavailable Ezequiel Garcia Attending Unavailabl e SPRING, ABHISHEK Primary Care Unavailable Olechrise Ezequiel FRAZIER Attending Unavailabl e SPRING, ABHISHEK Primary Care Unavailable SPRING, ABHISHEK Primary Care Unavailable Bisi Rivera Consulting Unavailable Bisi Rivera Admitting Unavailable John Rod Attending Unavailable John Rod Consulting Unavailable SPRING, ABHISHEK Primary Care Unavailable Jocelyn Polk Attending Unavailable Bisi Rivera Consulting Unavailable Bisi Rivera Admitting Unavailable John Rod Consulting Unavailable Ute Hancock Attending Unavailable Mao Muse Attending Unavailable SPRING, ABHISHEK Primary Care Unavailable Saroj Gutierrez Admitting Unavailable Saroj Gutierrez Consulting Unavailable Tello Borrego Consulting Unavailable Kerline Miranda Consulting Unavailable Care Physician, No Primary Primary Care Unava ilable Aviva Brandt Attending Unavailable Jocelyn Polk Attending Unavailable Jocelyn Polk Consulting Unavailable Care Physician, No Primary Primary Care Unava ilable Saroj Gutierrez Consulting Unavailable Saroj Gutierrez Attending Unavailable Saroj Gutierrez Admitting Unavailable Mao uMse Attending Unavailable Care Physician, No Primary Primary Care Unava ilable Saroj Gutierrez Consulting Unavailable Saroj Gutierrez Admitting Unavailable Steve Ocampo Consulting Unavailable Joesph Syed Consulting Unavailable Manas Osman Consulting Unavailable Lance Bonner Consulting Unavailable Darnell Mora Consulting Unavailable Spencer Donnelly Consulting Unavailable Maximiliano Cole Consulting Unavailable Aileen Abdi Consulting UnavailLio Simpson Consulting Unavailable Baljinder Gordon Consulting Unavailable Kaushik Sykes Consulting Unavailable Alejandra Canales Consulting Unavailable Chrissy Bledsoe Consulting Unavailable Dyana Vasquez Consulting Unavailable RahelTrisha worthytam Consulting Unavailable Lucian Hernandez Consulting Unavailable Korin, Jose Consulting Unavailable DheChioma whitakerTriston Consulting Unavailable Shi Ramos Consulting Unavailable Migue Owens Consulting Unavailable Froilan Dan Consulting Unavailable Jose Dumont Consulting Unavailable Carl Marcos Consulting Unavailable Micha Mao Consulting Unavailable Tello Borrego Consulting Unavailable Kerline Miranda Consulting Unavailable [facility] Primary Care Unavailable Bisi Rivera Attending Unavailable [facility] Primary Care Unavailable Ute Hancock Consulting Unavailable Ute Hancock Admitting Unavailable Mao Muse Attending Unavailable Allergies Allergy Classification Reported Allergen(s) Allergy Type Date of Onset Reaction(s) Facility (16 sources) ibuprofen; Translations: [Ibuprofen] drug allergy 06-02-2022 [facility] (3 sources) Ibuprofen Drug Allergy 07-02-2021 [facility] Repository Medications Current Medications Medication Drug Class(es) Dates Sig (Normalized) Sig (Original) acetaminophen 325 mg oral tablet (1 source) Start: 01-10-2025 take 2 tablets by mouth every four hours as needed for pain Acetaminophen 325 mg Tablet Active 650 mg PO EVERY 4 HOURS NEEDED as needed for Fever, pain 1-10/10 0 0 January 10, 2025 12:00am allopurinol 100 mg oral tablet (18 sources) Xanthine Oxidase Inhibitor Start: 05-03-2013 take 1 tablet by mouth once daily at mealtime Allopurinol 100 MG tablet Active 100 mg PO DAILY WITH MEALS May 03, 2013 1:00am gout ciprofloxacin 500 mg oral tablet (1 source) Quinolone Antimicrobial Start: 06-02-2022 take 500 mg by mouth twice daily Ciprofloxacin Hcl Active 500 MG PO Twice A Day June 02, 2022 12:00am docusate sodium 50 mg / sennosides, longterm 8.6 mg oral tablet (1 source) Start: 01-10-2025 Sennosides-Docusat e Sodium (Stimulant Laxative Plus) 8.6-50 mg Tablet Active 2 {tbl} PO TWICE A DAY 0 0 January 10, 2025 12:00am donepezil hydrochloride 10 mg oral tablet (8 sources) Start: 03-18-2024 take 1 tablet by mouth at bedtime Donepezil 10 mg tablet Active 10 mg PO AT BEDTIME March 18, 2024 1:00am dementia Start: 04-23-2022 take 5 mg by mouth once daily Donepezil Active 5 MG PO Every Day April 23, 2022 12:00am Dulaglutide (6 sources) GLP-1 Receptor Agonist Start: 03-18-2024 Dulaglu tide (Trulicity) 3 mg/0.5 mL pen injector Active 3 mg SC EVERY WEEK March 18, 2024 1:00am diabetes Start: 03-18-2024 Dulaglutide (T rulicity) 3 mg/0.5 mL pen injector Active 3 mg SC EVERY WEEK March 18, 2024 1:00am DULoxetine 60 mg delayed release oral capsule (17 sources) Serotonin and Norepinephrine Reuptake Inhibitor Start: 03-18-2024 take 1 capsule by mouth once daily Duloxetine 60 mg capsule,delayed release(DR/EC) Active 60 mg PO DAILY March 18, 2024 1:00am depression Start: 11-24-2017 take 60 mg by mouth [...] Oral Active empagliflozin 25 mg oral tablet (6 sources) Sodium-Glucose Cotransporter 2 Inhibitor Start: 03-18-2024 take 1 tablet by mouth once daily Empagliflozin (Jardiance) 25 mg tablet Active 25 mg PO DAILY March 18, 2024 1:00am diabetes ezetimibe 10 mg oral tablet (9 sources) Dietary Cholesterol Absorption Inhibitor Start: 03-18-2024 take 1 tablet by mouth once daily Ezetimibe 10 mg tablet Active 10 mg PO DAILY March 18, 2024 1:00am cholesterol Start: 10-23-2019 End: 04-19-2022 take 1 tablet by mouth once daily Ezetimibe (Zetia) 10 MG tablet Discontinued 10 MG PO Daily October 22, 2019 11:00pm April 19, 2022 12:47am gabapentin 800 mg oral tablet (20 sources) Anti-epileptic Agent Start: 10-19-2024 Gabapenti n 800 MG tablet Active 400 mg PO 3 TIMES DAILY WITH MEALS 45 0 October 19, 2024 3:28pm nerve pain Start: 05-03-2013 End: 10-19-2024 take 1 tablet by mouth three times daily at mealtime Gabapentin 800 MG tablet Discontinued 800 mg PO 3 TIMES DAILY WITH MEALS May 03, 2013 1:00am October 19, 2024 3:28pm nerve pain take 800 mg by mouth every six hours gabapentin oral 800 mg 4 times per day nerve pain nerve pain Oral Active glipiZIDE er 10 mg 24 hr extended release oral tablet (9 sources) Sulfonylurea Start: 03-18-2024 take 1 tablet by mouth once daily Glipizide 10 mg tablet extended release 24hr Active 10 mg PO DAILY March 18, 2024 1:00am diabetes Start: 11-24-2017 take 2 tablets by mo [facility] once daily Glipizide (Glucotrol) 5 MG tablet Active 10 MG PO Daily November 23, 2017 11:00pm 3 ml insulin glargine 100 unt/ml pen injector (15 sources) Insulin Analog Start: 10-13-2024 Insulin Glargi ne (Basaglar Kwikpen U-100 Insulin) 100 unit/mL (3 mL) insulin pen Active 75 U SC EVERY EVENING October 13, 2024 12:00am diabetes Start: 08-23-2024 End: 10-13-2024 Insulin Glargine (Basaglar K wikpen U-100 Insulin) 100 unit/mL (3 mL) insulin pen Discontinued 35 U SC EVERY EVENING 0 30 0 August 23, 2024 11:14am October 13, 2024 [...] Day At Bedtime April 19, 2022 12:00am 3 ml insulin lispro 100 unt/ml pen injector (1 source) Insulin Analog Start: 01-10-2025 Insulin Lispro (Humalog Kwikpen Insulin) 100 unit/mL Insulin Pen Active 0 U SC BEFORE MEALS AND AT BEDTIME 0 0 January 10, 2025 12:00am Please contact the information source for Protocol details. levothyroxine sodium 0.05 mg oral tablet (6 sources) l-Thyroxine Start: 03-18-2024 take 1 tablet by mouth once daily Levothyroxine 50 mcg tablet Active 50 ug PO DAILY March 18, 2024 1:00am thyroid lisinopril 2.5 mg oral tablet (6 sources) Angiotensin Converting Enzyme Inhibitor Start: 03-18-2024 take 1 tablet by mouth once daily Lisinopril 2.5 mg tablet Active 2.5 mg PO DAILY March 18, 2024 1:00am blood pressure LORazepam 1 mg oral tablet (2 sources) Benzodiazepine Start: 06-01-2022 End: 06-01-2022 take 1 mg by mouth once daily Lorazepam Discontinued 1 MG PO Daily June 01, 2022 12:00am June 01, 2022 1:15am Kfzzukhr-Lwl-Av-Lyc open-Lutein (Centrum Silver Tablet) 1 EACH tablet (2 sources) Start: 05-03-2013 Eqmtnbvh-Ybc-Df-Ly copen-Lutein (Centrum Silver Tablet) 1 EACH tablet Active 1 NMA PO DAILY May 03, 2013 1:00am Start: 05-03-2013 Zdwraswa-Iwx-T j-Zqrukyc-Dehywc (Centrum Silver Tablet) 1 EACH tablet Active 1 EACH PO DAILY May 03, 2013 1:00am polyethylene glycol 3350 70202 mg powder for oral solution (2 sources) Osmotic Laxative Start: 04-23-2022 take 17 g by mouth once daily as needed Polyethylene Glycol 3350 Active 17 GM PO Daily as needed April 23, 2022 12:00am pramipexole dihydrochloride 0.125 mg oral tablet (17 sources) Nonergot Dopamine Agonist Start: 03-18-2024 take 1 tablet by mouth twice daily Pramipexole 0.125 mg tablet Active 0.125 mg PO TWICE A DAY March 18, 2024 1:00am parkinsons Start: 05-17-2018 take 0.125 mg by brooks th at bedtime Pramipexole Active 0.125 MG PO Bedtime May 17, 2018 12:00am take 2 tablets by mo uth at bedtime Pramipexole dihydrochloride 0.125 MG Oral Tablet [Mirapex] 0.25 mg At bedtime 1-2 tabs at bedtime 1-2 tabs at bedtime Oral Active QUEtiapine 100 mg oral tablet (20 sources) Atypical Antipsychotic Start: 01-07-2025 take 1 tablet by mouth twice daily Quetiapine 100 mg tablet Active 100 mg PO TWICE A DAY January 07, 2025 12:00am . Start: 01-07-2025 take 1 tablet by brooks th once daily Quetiapine 50 mg tablet Active 50 mg PO DAILY January 07, 2025 12:00am mental health Start: 10-19-2024 End: 01-07-2025 Quetiapine 50 mg tablet Disc ontinued 25 mg PO DAILY 0 October 19, 2024 3:28pm January 07, 2025 2:54pm mental health Start: 03-18-2024 End: 08-23-2024 take 1 tablet by mouth twice daily Quetiapine 100 mg tablet Discontinued 100 mg PO TWICE A DAY March 18, 2024 1:00am August 23, 2024 11:10am Start: 03-18-2024 End: 10-19-2024 take 1 tablet by mouth once daily Quetiapine 50 mg tablet Discontinued 50 mg PO DAILY March 18, 2024 1:00am October 19, 2024 3:28pm mental health Start: 05-31-2022 take 1 tablet by brooks th at bedtime Quetiapine Active 1 TAB PO Bedtime May 31, 2022 12:00am Start: 04-19-2022 take 50 mg by mouth once daily Quetiapine Active 50 MG PO Every Day April 19, 2022 12:00am tamsulosin hydrochloride 0.4 mg oral capsule (3 sources) alpha-Adrenergic Maribell Start: 10-15-2024 take 1 capsule by mouth once daily Tamsulosin 0.4 mg capsule Active 0.4 mg PO DAILY October 15, 2024 12:00am urine flow traMADol hydrochloride 50 mg oral tablet (20 sources) Opioid Agonist Start: 01-06-2025 take 1 tablet by mouth three times daily Tramadol 50 mg tablet Active 50 mg PO THREE TIMES A DAY January 06, 2025 12:00am pain Start: 10-19-2024 End: 01-06-2025 take 1 tablet by mouth every eight hours as needed for pain Tramadol 50 mg tablet Discontinued 50 mg PO Q8H as needed for pain 30 0 October 19, 2024 3:28pm January 06, 2025 10:50pm Start: 03-18-2024 End: 10-19-2024 take 1 tablet by mouth four times daily Tramadol 50 mg tablet Discontinued 50 mg PO 4 TIMES DAILY March 18, 2024 1:00am October 19, 2024 3:28pm pain Start: 11-24-2017 End: 04-23-2022 take 50 mg by mouth every six hours Tramadol Discontinued 50 MG PO Q6H April 19, 2022 12:00am April 23, 2022 10:04am take 50 mg by mouth at bedtime t ramadol oral 50 mg At bedtime pain pain Oral Active traZODone hydrochloride 50 mg oral tablet (20 sources) Serotonin Reuptake Inhibitor Start: 01-07-2025 take 2 tablets by mouth at bedtime Trazodone 50 mg Tablet Active 100 mg PO AT BEDTIME January 07, 2025 12:00am Home medication. Start: 08-23-2024 End: 01-10-2025 take 1 tablet by mouth at bedtime Trazodone 50 mg Tablet Discontinued 50 mg PO AT BEDTIME 0 0 August 23, 2024 12:00am January 07, 2025 2:54pm Home medication. Start: 03-18-2024 End: 08-23-2024 take [...] 24, 2017 11:00pm May 17, 2018 3:05pm [id number] 200 actuat albuterol 0.09 mg/actuat metered dose inhaler (6 sources) beta2-Adrenerg ic Agonist Start: 03-18-2024 End: 08-19-2024 Albuterol Sulfate 90 mcg/actuation HFA aerosol inhaler Discontinued 2 NMA INHALATION NEEDED March 18, 2024 1:00am August 19, 2024 11:59pm sob atorvastatin 10 mg oral tablet (9 sources) HMG-CoA Reductase Inhibitor Start: 03-18-2024 End: 10-13-2024 take 1 tablet by mouth once daily in the evening Atorvastatin 10 mg tablet Discontinued 10 mg PO EVERY EVENING March 18, 2024 1:00am October 13, 2024 10:51pm Start: 10-23-2019 take 10 mg by mouth at bedtime Atorvastatin Active 10 MG PO Bedtime October 22, 2019 11:00pm busPIRone hydrochloride 15 mg oral tablet (18 sources) Start: 11-24-2017 End: 04-19-2022 take 15 [...] Oral Active cefdinir 300 mg oral capsule (5 sources) Cephalosporin Antibacterial Start: 08-23-2024 End: 10-19-2024 take 1 capsule by mouth twice daily Cefdinir 300 mg capsule Discontinued 300 mg PO TWICE A DAY 8 4 0 August 23, 2024 12:00am October 19, 2024 3:16pm infection celecoxib 200 mg oral capsule (7 sources) Nonsteroidal Anti-inflammatory Drug Start: 05-03-2013 End: 03-18-2024 take 1 capsule by mouth once daily Celecoxib 200 MG capsule Discontinued 200 mg PO DAILY May 03, 2013 1:00am March 18, 2024 1:02pm centram silver (8 sources) take 1 tablet by mouth once daily centram silver 1 tablet Every day vitamin vitamin Oral Active cephalexin 250 mg oral capsule (12 sources) Cephalosporin Antibacterial Start: 01-06-2025 End: 01-10-2025 take 1 capsule by mouth once daily Cephalexin 250 mg capsule Discontinued 250 mg PO DAILY January 06, 2025 12:00am January 10, 2025 12:14pm Start: 11-06-2022 End: 03-18-2024 take 1 capsule by mouth every six hours Cephalexin 500 mg capsule Discontinued 500 mg PO EVERY 6 HOURS 28 7 0 November 06, 2022 12:00am March 18, 2024 11:58am Start: 10-23-2019 End: 04-19-2022 take 500 mg by mouth every six hours Cephalexin Discontinued 500 MG PO Every 6 Hours October 22, 2019 11:00pm April 19, 2022 12:43am clonazePAM 2 mg oral tablet (7 sources) Benzodiazepine Start: 05-03-2013 End: 03-18-2024 take 1 tablet by mouth twice daily Clonazepam (Klonopin) 2 MG tablet Discontinued 2 mg PO TWICE A DAY May 03, 2013 1:00am March 18, 2024 1:02pm 168 hr cloNIDine 0.90744 mg/hr transdermal system (8 sources) Central alpha-2 Adrenergic Agonist Start: 08-19-2024 End: 10-13-2024 Clonidine 0.2 mg/24 hr patch weekly Discontinued 1 NMA TOPICAL EVERY WEEK August 19, 2024 12:00am October 13, 2024 10:48pm Start: 04-23-2022 Clonidine Acti ve 1 EACH TD Bedolla@1000 4 April 23, 2022 12:00am docusate sodium 100 mg oral capsule (3 sources) Start: 10-19-2024 End: 01-10-2025 take 2 capsules by mouth twice daily Docusate Sodium 100 mg Capsule Discontinued 200 mg PO TWICE A DAY 40 10 0 October 19, 2024 12:00am January 10, 2025 12:15pm doxazosin 2 mg oral tablet (9 sources) alpha-Adrenergi c Maribell Start: 03-18-2024 End: 03-18-2024 take 1 tablet by mouth once daily Doxazosin 2 mg tablet Discontinued 2 mg PO DAILY March 18, 2024 1:00am March 18, 2024 12:58pm Start: 05-17-2018 take 2 mg by mouth twice daily Doxazosin Active 2 MG PO Twice A Day May 17, 2018 12:00am fenofibrate 145 mg oral tablet (18 sources) Peroxisome Proliferator Receptor alpha Agonist Start: 05-03-2013 End: 03-18-2024 take 1 tablet by mouth once daily Fenofibrate Nanocrystallized 145 MG tablet Discontinued 145 mg PO DAILY May 03, 2013 1:00am March 18, 2024 1:02pm 72 hr fentaNYL 0.0375 mg/hr transdermal system (18 sources) Opioid Agonist Start: 11-24-2017 End: 04-19-2022 [...] TD Active furosemide 40 mg oral tablet (7 sources) Loop Diuretic Start: 05-03-2013 End: 03-18-2024 [...] Active metFORMIN hydrochloride 500 mg oral tablet (15 sources) Biguanide Start: 05-03-2013 End: 03-18-2024 take 1 tablet by mouth three times daily at mealtime Metformin 500 MG tablet Discontinued 500 mg PO 3 TIMES DAILY WITH MEALS May 03, 2013 1:00am March 18, 2024 1:02pm take 1000 mg by mout h twice daily before mealtime metformin oral 1,000 mg 2 times per day before meals blood sugar blood sugar Oral Active [place]k-Mpt-Os-Lycopen-Lute in (Centrum Silver) 1 EACH tablet (8 sources) Start: 11-24-2017 End: 04-19-2022 take 1 tablet by mouth once daily Gmxjhxvf-Zfl-Lc-Lycopen-Lutein (Centrum Silver) 1 EACH tablet Discontinued 1 EACH PO Daily November 23, 2017 11:00pm April 19, 2022 12:42am Start: 05-03-2013 take 1 tablet by brooks th once daily Niryrifh-Trh-Pf-Lycopen-Lutein (Centrum Silver) 1 EACH tablet Active 1 NMA PO DAILY May 03, 2013 1:00am vitamin Start: 05-03-2013 take 1 tablet by brooks th once daily Zyatefkm-Lkg-Br-Lycopen-Lutein (Centrum Silver) 1 EACH tablet Active 1 NMA PO DAILY May 03, 2013 1:00am 12 hr orphenadrine citrate 100 mg extended release oral tablet (7 sources) Muscle Relaxant Start: 05-03-2013 End: 03-18-2024 [...] chloride 20 meq extended release oral tablet (7 sources) Start: 05-03-2013 End: 03-18-2024 Klor-Con M10 [...] Course Completed ramipril 10 mg oral capsule (18 sources) Angiotensin Converting Enzyme Inhibitor Start: 05-03-2013 [...] Course Completed rivaroxaban 20 mg oral tablet (6 sources) Factor Xa Inhibitor Start: 03-18-2024 End: 10-13-2024 take 1 tablet by mouth once daily at dinner Rivaroxaban (Xarelto) 20 mg tablet Discontinued 20 mg PO DAILY March 18, 2024 1:00am October 13, 2024 10:49pm must administer with evening meal rosuvastatin calcium 10 mg oral tablet (7 sources) HMG-CoA Reductase Inhibitor Start: 05-03-2013 End: [...] EVENING as needed for muscle spasms 0 0 August 23, 2024 12:00am October 19, [...] Active warfarin sodium 3 mg oral tablet (18 sources) Vitamin K Antagonist Start: 11-24-2017 End: [...] 04-20-2022 Episodic Acute and unspecified renal failure (9 sources) Acute kidney failure, unspecified; Translations: [Acute renal failure syndrome] Onset: 07-02-2021 08-31-2024 Episodic Anxiety disorders (1 source) Generalized anxiety disorder; Translations: [GENERALIZED ANXIETY DISORDER] Onset: 07-02-2021 Chronic Blindness and vision defects (4 sources) Visual hallucinations; Translations: [Visual hallucinations] 01-06-2025 Episodic Chronic kidney disease (10 sources) Chronic kidney disease, stage 3 (moderate); [...] dementia, and amnestic and other cognitive disorders (15 sources) Dementia; Translations: [Unspecified dementia without behavioral disturbance] Onset: 07-02-2021 05-31-2022 Chronic Diabetes mellitus with complications (5 sources) Type 2 diabetes mellitus with diabetic neuropathy, unspecified; Translations: [Type 2 diabetes mellitus with other specified complication] Onset: 07-02-2021 Chronic Diabetes mellitus without complication (18 sources) Diabetes mellitus; Translations: [Type 2 diabetes mellitus without complications] Onset: 01-04-2016 08-25-2016 Chronic Disorders of lipid metabolism (7 sources) Hyperlipidemia, unspecified; Translations: [Hyperlipidemia] Onset: 01-04-2016 03-26-2022 Chronic E Codes: Fall (3 sources) Fall; Translations: [Unspecified fall, initial encounter] 06-17-2018 Episodic Essential hypertension (6 sources) Essential (primary) hypertension; Translations: [Benign hypertension] Onset: 01-04-2016 03-26-2022 Chronic Fluid and electrolyte disorders (8 sources) Hypokalemia; Translations: [Lactic acidosis] Onset: 07-02-2021 [...] sources) Long-term current use of anticoagulant; Translations: [intermission coordinator (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 of anticoagulants] 04-23-2022 Episodic Other injuries and conditions due to external causes (4 sources) Falling injury Onset: 08-25-2016 08-25-2016 Other lower respiratory disease (6 sources) Cough; Translations: [Cough] 03-26-2024 Episodic Other nervous system disorders (3 sources) Neuropathy; Translations: [Polyneuropathy, unspecified] 03-26-2022 Chronic Other nervous system disorders (1 source) Polyneuropathy, unspecified; Translations: [Mononeuritis of unspecified site] 04-23-2022 Chronic Other nervous system disorders (7 sources) Disorder of brain; Translations: [Encephalopathy, unspecified] 05-31-2022 Chronic Other nervous system disorders (2 sources) Encephalopathy, unspecified; Translations: [Encephalopathy, unspecified] Onset: 01-10-2025 06-02-2022 Chronic Other nervous system disorders (13 sources) Metabolic encephalopathy; Translations: [Metabolic encephalopathy] 08-20-2024 [...] elsewhere] 04-19-2022 Episodic Septicemia (except in labor) (17 sources) Septic shock; Translations: [Sepsis, unspecified organism] Onset: 10-24-2024 08-20-2024 Episodic Skin and subcutaneous tissue infections (11 sources) Cellulitis of lower limb; Translations: [Cellulitis of left lower limb] Onset: 07-02-2021 11-23-2019 Episodic Spondylosis; intervertebral disc disorders; other back problems (2 sources) Postlaminectomy syndrome, not elsewhere classified; Translations: [Spondylosis without myelopathy or radiculopathy, cervical region] Onset: 08-29-2021 Chronic Spondylosis; intervertebral disc disorders; other back problems (6 sources) Cervical radiculopathy; Translations: [Radiculopathy, cervical region] 12-26-2017 Episodic Superficial injury; contusion (7 sources) Superficial injury of hand with infection; [...] at this office, She is now with [facility] and will come to your house. If you have any issues with your scheduled time please contact them at [phone]. Unclassified (3 sources) Please call [phone] to schedule your in home appointment. Unclassified [...] unspecified; Translations: [ANEMIA, UNSPECIFIED] Onset: 07-02-2021 Episodic Malaise and fatigue (7 sources) Asthenia; Translations: [Other malaise] Onset: 10-19-2024 10-15-2024 Episodic Open wounds of extremities (7 sources) Injury of foot; Translations: [Unspecified open wound, unspecified foot, initial encounter] Onset: 04-14-2024 03-26-2024 Episodic Open wounds of head; neck; and trunk (1 source) Unspecified open wound of lower back and pelvis without penetration into retroperitoneum, initial encounter; Translations: [UNSP OPN WND LOW BACK AND PELV W/O PENET RETROPERI] Onset: 07-02-2021 Episodic Other aftercare (2 sources) [facility] (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 of anticoagulants; Translations: [Long-term (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 of anticoagulants] Onset: 07-02-2021 04-23-2022 Episodic Other aftercare (1 source) Other nursing home (current) drug therapy; Translations: [OTHER [facility] (CURRENT) DRUG THERAPY] Onset: 07-02-2021 Episodic Other [...] SPECIFIED PARTS OF DIGES] Onset: 07-02-2021 Episodic Shock (1 source) Severe sepsis with septic shock; Translations: [Severe sepsis with septic shock] Onset: 08-23-2024 Episodic Unclassified (3 sources) 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 Basic Metabolic Profile (BMP )on 01-10-2025 BUN/CRE 9.1 RATIO Low 02-20 [facility] Comment on above: Performed By: #### L 500.2500 ####[facility] [address] [place], [address] Calcium [Mass/Vol] 8.3 mg/dL Normal 7.6-11.0 [facility] Comment on above: Performed By: #### L 500.2500 ####[facility] [address] [place], [address] Chloride [Moles/Vol] 102 mmol/L Normal 98-108 [facility] Comment on above: Performed By: #### L 500.2500 ####[facility] [address] [place], [address] CO2 [Moles/Vol] 22.3 mmol/L Normal 21.0-32.0 [facility] Comment on above: Performed By: #### L 500.2500 ####[facility] [address] [place], [address] Creatinine [Mass/Vol] 1.61 mg/dL High 0.70-1.20 [facility] Comment on above: Performed By: #### L 500.2500 ####[facility] [address] [place], [address] ECRCL 53.12 ml/min Normal 50-250 [facility] Comment on above: Performed By: #### L 500.2500 ####[facility] [address] [place], [address] GAP 11 Normal 5-15 [facility] Comment on above: Performed By: #### L 500.2500 ####[facility] [address] [place], [address] GFR/1.73 sq M.predicted among non-blacks MDRD (S/P/Bld) [Vol rate/Area] 44 mL/min/{1.73_m2} Low >60 [facility] Comment on above: Result Comment: mL/m in/1.73m2 CKD-EPI Creatinine Equation (2020) Performed By: #### L 500.2500 ####[facility] [address] [place], [address] Glucose [Mass/Vol] 140 mg/dL High 70-99 [facility] Comment on above: Performed By: #### L 500.2500 ####[facility] [address] [place], [address] Potassium [Moles/Vol] 3.8 mmol/L Normal 3.3-5.1 [facility] Comment on above: Performed By: #### L 500.2500 ####[facility] [address] [place], [address] Sodium [Moles/Vol] 136 mmol/L Normal 133-145 [facility] Comment on above: Performed By: #### L 500.2500 ####[facility] [address] [place], [address] Urea nitrogen [Mass/Vol] 15 mg/dL Normal 4-19 [facility] Comment on above: Performed By: #### L 500.2500 ####[facility] [address] [place], [address] Bedside Glucoseon 01-10-2025 FINGERSTICK GLU 181 mg/dL High 74-106 [facility] Comment on above: Result Comment: NITZA GEMENT OF PATIENT CARE PER NURSING PROTOCOL Performed By: #### L 501.080 ####[facility] [address] [place], [address] FINGERSTICK GLU 149 mg/dL High 74-106 [facility] Comment on above: Result Comment: NITZA GEMENT OF PATIENT CARE PER NURSING PROTOCOL Performed By: #### L 501.080 ####[facility] [address] [place], [address] Carbon dioxide, total [Moles /volume] in Central venous bloodOrdered By: Mao Muse on 01-10-2025 CO2 [Moles/Vol] 22.3 mmol/L 21.0-32.0 [facility] Chloride assayOrdered By: Aarti Muse on 01-10-2025 Chloride [Moles/Vol] 102 mmol/L 98-108 [facility] Glomerular filtration rate ( GFR) estimation/1.73 sq m using serum, plasma, or whole bOrdered By: Mao Muse on 01-10-2025 GFR/1.73 sq M.predicted among non-blacks MDRD (S/P/Bld) [Vol rate/Area] 44 mL/min/{1.73_m2} Low >60 [facility] Comment on above: mL/min/1.73m2 CKD-EP I Creatinine Equation (2020) Glucose measurement at bedsi deOrdered By: Mao Muse on 01-10-2025 Glucose [Mass/Vol] 181 mg/dL High 74-106 [facility] Comment on above: MANAGEMENT OF PATIEN T CARE PER NURSING PROTOCOL Potassium measurement (mass/ volume)Ordered By: Mao Muse on 01-10-2025 Potassium (Unsp spec) [Mass/Vol] 3.8 mmol/L 3.3-5.1 [facility] Serum creatinine measurement (mass/volume)Ordered By: Mao Muse on 01-10-2025 Creatinine [Mass/Vol] 1.61 mg/dL High 0.70-1.20 [facility] Serum glucose measurement (m ass/volume)Ordered By: Mao Muse on 01-10-2025 Glucose [Mass/Vol] 140 mg/dL High 70-99 [facility] Serum or plasma calcium maricel urement (mass/volume)Ordered By: Mao Muse on 01-10-2025 Calcium [Mass/Vol] 8.3 mg/dL 7.6-11.0 [facility] Serum or plasma urea nitroge n measurement (mass/volume)Ordered By: Mao Muse on 01-10-2025 Urea nitrogen [Mass/Vol] 15 mg/dL 4-19 [facility] Sodium levelOrdered By: Ericka Muse on 01-10-2025 Sodium [Moles/Vol] 136 mmol/L 133-145 [facility] Urine Cultureon 01-10-2025 URC #2 Below infection level. Urine Culture Yeast, not Callie albicans [place] Count 25,000-50,000 Yeast, not Callie albicans Yeast, not Callie albicans Normal [facility] Comment on above: Performed By: #### M 100.2200 ####[facility] [address] [place], [place], [address] Bedside Glucoseon 01-09-2025 FINGERSTICK GLU 145 mg/dL High 74-106 [facility] Comment on above: Result Comment: NITZA NGUYEN OF PATIENT CARE PER NURSING PROTOCOL Performed By: #### L 501.080 ####[facility] [address] [place], [address] FINGERSTICK GLU 177 mg/dL High 74-106 [facility] Comment on above: Result Comment: NITZA GEMENT OF PATIENT CARE PER NURSING PROTOCOL Performed By: #### L 501.080 ####[facility] [address] [place], [address] FINGERSTICK GLU 206 mg/dL High [address] [facility] Comment on above: Result Comment: NITZA GEMENT OF PATIENT CARE PER NURSING PROTOCOL Performed By: #### L 501.080 ####[facility] [address] [place], [address] FINGERSTICK GLU 144 mg/dL High [facility]106 [facility] Comment on above: Result Comment: INTZA GEMENT OF PATIENT CARE PER NURSING PROTOCOL Performed By: #### L 501.080 ####[facility] [address] [place], [address] Bedside Glucoseon 01-08-2025 FINGERSTICK GLU 225 mg/dL High -[address] [place] [address] Comment on above: Result Comment: NITZA GEMENT OF PATIENT CARE PER NURSING PROTOCOL Performed By: #### L 501.080 ####[facility] [address] [place], [address] FINGERSTICK GLU 174 mg/dL High [address] [place] [address] Comment on above: Result Comment: NITZA GEMENT OF PATIENT CARE PER NURSING PROTOCOL Performed By: #### L 501.080 ####[facility] [address] [place], [address] FINGERSTICK GLU 206 mg/dL High [facility]106 [facility] Comment on above: Result Comment: NITZA GEMENT OF PATIENT CARE PER NURSING PROTOCOL Performed By: #### L 501.080 ####[facility] [address] [place], [address] FINGERSTICK GLU 224 mg/dL High [address] [place] [address] Comment on above: Result Comment: NITZA GEMENT OF PATIENT CARE PER NURSING PROTOCOL Performed By: #### L 501.080 ####[facility] [address] [place], [address] Absolute lymphocyte countOrd ered By: Ute White on 01-07-2025 Lymphocytes Auto (Unsp spec) [#/Vol] 1.90 10*3/uL 0.83-4.51 [facility] Absolute neutrophil countOrd ered By: White on 01-07-2025 Neutrophils (Bld) [#/Vol] 4.7 10*3/uL 2.0-7.7 [facility] Automated lymphocyte count a s percentage of total leukocytesOrdered By: White on 01-07-2025 Lymphocytes/100 WBC Auto (Unsp spec) 25.2 % 19-41 [facility] Basophil percentageOrdered B y: White on 01-07-2025 Basophils/100 WBC (Bld) 0.7 % 0-1 [facility] Bedside Glucoseon 01-07-2025 FINGERSTICK GLU 125 mg/dL High 74-106 [facility] Comment on above: Result Comment: NITZA GEMENT OF PATIENT CARE PER NURSING PROTOCOL Performed By: #### L 501.080 ####[facility] [address] [facility] [address] FINGERSTICK GLU 163 mg/dL High 74-106 [facility] Comment on above: Result Comment: NITZA GEMENT OF PATIENT CARE PER NURSING PROTOCOL Performed By: #### L 501.080 ####[facility] [address] [facility] [address] FINGERSTICK GLU 113 mg/dL High 74-106 [facility] Comment on above: Result Comment: NITZA GEMENT OF PATIENT CARE PER NURSING PROTOCOL Performed By: #### L 501.080 ####[facility] [address] [facility] [address] FINGERSTICK GLU 132 mg/dL High 74-106 [facility] Comment on above: Result Comment: NITZA GEMENT OF PATIENT CARE PER NURSING PROTOCOL Performed By: #### L 501.080 ####[facility] [address] [place], [address] FINGERSTICK GLU 135 mg/dL High 74-106 [facility] Comment on above: Result Comment: NITZA NGUYEN OF PATIENT CARE PER NURSING PROTOCOL Performed By: #### L 501.080 ####[facility] [address] [place], [address] Bilirubin, totalOrdered By: Ute Hancock on 01-07-2025 Bilirubin [Mass/Vol] 0.59 mg/dL 0.00-1.30 [facility] CBC W/Diff, Automatedon Absolute Lymph 1.90 X10 3/uL Normal 0.83-4.51 [facility] Comment on above: Performed By: #### L 100.0100, L500.4050 ####[facility] [address] [place], [address] Absolute Neut 4.7 X10 3/uL Normal 2.0-7.7 [facility] Comment on above: Performed By: #### L 100.0100, L500.4050 ####[facility] [address] [place], [address] Basophils/100 WBC (Bld) 0.7 % Normal 0-1 [facility] Comment on above: Performed By: #### L 100.0100, L500.4050 ####[facility] [address] [place], [address] Eosinophils/100 WBC (Bld) 3.2 % Normal 0-5 [facility] Comment on above: Performed By: #### L 100.0100, L500.4050 ####[facility] [address] [place], [address] Erythrocyte distribution width (RBC) [Ratio] 15.0 % High 11.6-14.6 [facility] Comment on above: Performed By: #### L 100.0100, L500.4050 ####[facility] [address] [place], [address] Hematocrit (Bld) [Volume fraction] 36.7 % Low 40-54 [facility] Comment on above: Performed By: #### L 100.0100, L500.4050 ####[facility] [address] [place], [address] Hemoglobin (Bld) [Mass/Vol] 12.2 g/dL Low 13.0-16.5 [facility] Comment on above: Performed By: #### L 100.0100, L500.4050 ####[facility] [address] [place], [address] IG% 0.700 Normal 0.0-0.9 [facility] Comment on above: Result Comment: IG% - Immature Granulocytes (promyelocytes, myelocytes andmetamyelocytes) > 1% indicates that a LEFT SHIFT is Present. Performed By: #### L 100.0100, L500.4050 ####[facility] [address] [place], [address] Lymphocytes/100 WBC (Bld) 25.2 % Normal 19-41 [facility] Comment on above: Performed By: #### L 100.0100, L500.4050 ####[facility] [address] [place], [address] MCH (RBC) [Entitic mass] 30.5 pg Normal 27.0-32.0 [facility] Comment on above: Performed By: #### L 100.0100, L500.4050 ####[facility] [address] [place], [address] MCHC (RBC) [Mass/Vol] 33.2 g/dL Normal 32-36 [facility] Comment on above: Performed By: #### L 100.0100, L500.4050 ####[facility] [address] [place], [address] MCV (RBC) [Entitic vol] 91.8 fL Normal 80-94 [facility] Comment on above: Performed By: #### L 100.0100, L500.4050 ####[facility] [address] [place], [address] Monocytes/100 WBC (Bld) 8.5 % Normal 0-10 [facility] Comment on above: Performed By: #### L 100.0100, L500.4050 ####[facility] [address] [place], [address] Neutrophils/100 WBC (Bld) 61.7 % Normal 47-70 [facility] Comment on above: Performed By: #### L 100.0100, L500.4050 ####[facility] [address] [place], [address] Nucleated RBC (Bld) [#/Vol] 0 10*3/uL Normal 0-5 [facility] Comment on above: Performed By: #### L 100.0100, L500.4050 ####[facility] [address] [place], [address] Platelet mean volume (Bld) [Entitic vol] 9.0 fL Normal 6.2-12.0 [facility] Comment on above: Performed By: #### L 100.0100, L500.4050 ####[facility] [address] [place], [address] Platelets (Bld) [#/Vol] 112 10*3/uL Low 150-450 [facility] Comment on above: Performed By: #### L 100.0100, L500.4050 ####[facility] [address] [place], [address] RBC (Bld) [#/Vol] 4.00 10*6/uL Low 4.6-6.2 [facility] Comment on above: Performed By: #### L 100.0100, L500.4050 ####[facility] [address] [place], [address] RDW SD 51.2 fl High 35.1-43.9 [facility] Comment on above: Performed By: #### L 100.0100, L500.4050 ####[facility] [address] [place], [address] WBC (Bld) [#/Vol] 7.5 10*3/uL Normal 4.4-11.0 [facility] Comment on above: Performed By: #### L 100.0100, L500.4050 ####[facility] [address] [place], [address] Comprehensive Metabolic Prof ilon 01-07-2025 Albumin [Mass/Vol] 3.5 g/dL Normal 3.4-4.8 [facility] Comment on above: Performed By: #### L 100.0100, L500.4050 ####[facility] [address] [place], [address] Albumin/Globulin [Mass ratio] 1.0 {ratio} Normal 0.9-2.4 [facility] Comment on above: Performed By: #### L 100.0100, L500.4050 ####[facility] [address] [place], [address] ALK PHOS 72 U/L Normal 40-129 [facility] Comment on above: Performed By: #### L 100.0100, L500.4050 ####[facility] [address] [place], [address] ALT [Catalytic activity/Vol] 12 U/L Normal <=46 [facility] Comment on above: Performed By: #### L 100.0100, L500.4050 ####[facility] [address] [place], [address] AST [Catalytic activity/Vol] 16 U/L Normal <=37 [facility] Comment on above: Performed By: #### L 100.0100, L500.4050 ####[facility] [address] [place], [address] Bilirubin [Mass/Vol] 0.59 mg/dL Normal 0.00-1.30 [facility] Comment on above: Performed By: #### L 100.0100, L500.4050 ####[facility] [address] [place], [address] BUN/CRE 12.3 RATIO Normal 10-20 [facility] Comment on above: Performed By: #### L 100.0100, L500.4050 ####[facility] [address] [place], [address] Calcium [Mass/Vol] 8.8 mg/dL Normal 7.6-11.0 [facility] Comment on above: Performed By: #### L 100.0100, L500.4050 ####[facility] [address] [place], [address] Chloride [Moles/Vol] 104 mmol/L Normal 98-108 [facility] Comment on above: Performed By: #### L 100.0100, L500.4050 ####[facility] [address] [place], [address] CO2 [Moles/Vol] 20.6 mmol/L Low 21.0-32.0 [facility] Comment on above: Performed By: #### L 100.0100, L500.4050 ####[facility] [address] [place], [address] Creatinine [Mass/Vol] 1.72 mg/dL High 0.70-1.20 [facility] Comment on above: Performed By: #### L 100.0100, L500.4050 ####[facility] [address] [place], [address] ECRCL 49.59 ml/min Low 50-250 [facility] Comment on above: Performed By: #### L 100.0100, L500.4050 ####[facility] [address] [place], [address] GAP 11 Normal 5-15 [facility] Comment on above: Performed By: #### L 100.0100, L500.4050 ####[facility] [address] [place], [address] GFR/1.73 sq M.predicted among non-blacks MDRD (S/P/Bld) [Vol rate/Area] 41 mL/min/{1.73_m2} Low >60 [facility] Comment on above: Result Comment: mL/m in/1.73m2 CKD-EPI Creatinine Equation (2020) Performed By: #### L 100.0100, L500.4050 ####[facility] [address] [place], [address] Globulin (S) [Mass/Vol] 3.4 g/dL Normal 2.2-4.2 [facility] Comment on above: Performed By: #### L 100.0100, L500.4050 ####[facility] [address] [place], [address] Glucose [Mass/Vol] 118 mg/dL High 70-99 [facility] Comment on above: Performed By: #### L 100.0100, L500.4050 ####[facility] [address] [place], [address] Potassium [Moles/Vol] 4.1 mmol/L Normal 3.3-5.1 [facility] Comment on above: Performed By: #### L 100.0100, L500.4050 ####[facility] [address] [place], [address] Sodium [Moles/Vol] 135 mmol/L Normal 133-145 [facility] Comment on above: Performed By: #### L 100.0100, L500.4050 ####[facility] [address] [place], [address] T PROT 6.9 g/dL Normal 5.9-8.4 [facility] Comment on above: Performed By: #### L 100.0100, L500.4050 ####[facility] [address] [place], [address] Urea nitrogen [Mass/Vol] 21 mg/dL High 4-19 [facility] Comment on above: Performed By: #### L 100.0100, L500.4050 ####[facility] [address] [place], [address] Eosinophil percentageOrdered By: White on 01-07-2025 Eosinophils/100 WBC (Bld) 3.2 % 0-5 [facility] Erythrocyte distribution wid th ratioOrdered By: on 01-07-2025 Erythrocyte distribution width (RBC) [Ratio] 15.0 % High 11.6-14.6 [facility] Erythrocyte distribution wid th standard deviationOrdered By: on 01-07-2025 Erythrocyte distribution width (RBC) [Ratio] 51.2 fl High 35.1-43.9 [facility] Hematocrit Auto (Bld) [Volum e fraction]Ordered By: White on 01-07-2025 Hematocrit (Bld) [Volume fraction] 36.7 % Low 40-54 [facility] Hemoglobin measurementOrdere d By: on 01-07-2025 Hemoglobin (Bld) [Mass/Vol] 12.2 g/dL Low 13.0-16.5 [facility] Immature granulocytes/100 WB C Auto (Bld)Ordered By: on 01-07-2025 Immature granulocytes/100 WBC (Bld) 0.700 % 0.0-0.9 [facility] Comment on above: IG% - Immature Granu locytes (promyelocytes, myelocytes and metamyelocytes) > 1% indicates that a LEFT SHIFT is Present. Laboratory - Chemistry and C hemistry - challengeOrdered By: Ute Hancock on 01-07-2025 AST [Catalytic activity/Vol] 16 U/L <38 [facility] MCV (mean corpuscular volume ) determinationOrdered By: Ute Santi on 01-07-2025 MCV (RBC) [Entitic vol] 91.8 fL 80-94 [facility] Mean corpuscular hemoglobin (MCH) determinationOrdered By: Santi on 01-07-2025 MCH (RBC) [Entitic mass] 30.5 pg 27.0-32.0 [facility] Mean corpuscular hemoglobin concentration (MCHC) determinationOrdered By: Ute Santi on 01-07-2025 MCHC (RBC) [Mass/Vol] 33.2 g/dL 32-36 [facility] Mean platelet volume determi nationOrdered By: Ute Santi on 01-07-2025 Platelet mean volume (Bld) [Entitic vol] 9.0 fL 6.2-12.0 [facility] Monocyte percentageOrdered B y: Ute Santi on 01-07-2025 Monocytes/100 WBC (Bld) 8.5 % 0-10 [facility] Neutrophil percentageOrdered By: White on 01-07-2025 Neutrophils/100 WBC (Bld) 61.7 % 47-70 [facility] Nucleated red blood cell per centageOrdered By: Ute Santi on 01-07-2025 Nucleated RBC/100 WBC (Bld) [Ratio] 0 % 0-5 [facility] Platelet countOrdered By: Fela berhaneanjum Hancock on 01-07-2025 Platelets (Bld) [#/Vol] 112 10*3/uL Low 150-450 [facility] RBC Auto (Bld) [#/Vol]Ordere d By: Ute White on 01-07-2025 RBC (Bld) [#/Vol] 4.00 10*6/uL Low 4.6-6.2 [facility] Serum globulin measurementOr dered By: Ute Hancock on 01-07-2025 Globulin (S) [Mass/Vol] 3.4 g/dL 2.2-4.2 [facility] Serum or plasma alanine wylie otransferase (ALT) measurementOrdered By: Ute Hancock on 01-07-2025 ALT [Catalytic activity/Vol] 12 U/L <47 [facility] Serum or plasma albumin maricel urement (mass/volume)Ordered By: Ute Hancock on 01-07-2025 Albumin [Mass/Vol] 3.5 g/dL 3.4-4.8 [facility] Serum or plasma albumin/glob ulin mass ratioOrdered By: Ute Santi on 01-07-2025 Albumin/Globulin [Mass ratio] 1.0 {ratio} 0.9-2.4 [facility] Serum or plasma alkaline ivan sphatase measurementOrdered By: Ute Santi on 01-07-2025 ALP [Catalytic activity/Vol] 72 U/L 40-129 [facility] Total proteinOrdered By: Aut cristinan Santi on 01-07-2025 Protein [Mass/Vol] 6.9 g/dL 5.9-8.4 [facility] White blood cell (WBC) count Ordered By: Ute Hancock on 01-07-2025 WBC (Bld) [#/Vol] 7.5 10*3/uL 4.4-11.0 [facility] Absolute lymphocyte countOrd ered By: Gene oMnroy on 01-06-2025 Lymphocytes Auto (Unsp spec) [#/Vol] 1.64 10*3/uL 0.83-4.51 [facility] Absolute neutrophil countOrd ered By: Gene Monroy on 01-06-2025 Neutrophils (Bld) [#/Vol] 5.6 10*3/uL 2.0-7.7 [facility] Ammoniaon 01-06-2025 Ammonia (P) [Moles/Vol] 12.8 umol/L Low 16-60 [facility] Comment on above: Performed By: #### L 100.0100, L500.4050, L503.5510 ####[facility] [address] [place], [address] Anion gap in Serum or Plasma Ordered By: Gene Monroy on 01-06-2025 Anion gap [Moles/Vol] 12 mmol/L 5-15 [facility] Automated lymphocyte count a s percentage of total leukocytesOrdered By: Gene Monroy on 01-06-2025 Lymphocytes/100 WBC Auto (Unsp spec) 20.3 % - [facility] BUN/creatinine ratioOrdered By: Gene Monroy on 01-06-2025 Urea nitrogen/Creatinine [Mass ratio] 12.9 mg/mg 10- [facility] Basophil percentageOrdered B y: Gene Monroy on 01-06-2025 Basophils/100 WBC (Bld) 0.7 % 0-1 [facility] Bilirubin Test strip Ql (U)O rdered By: Gene Monroy on 01-06-2025 Bilirubin Ql (U) Negative Negative [facility] Bilirubin, totalOrdered By: Gene Monroy on 01-06-2025 Bilirubin [Mass/Vol] 0.56 mg/dL 0.00-1.30 [facility] Brain/Head without Contrasto n 01-06-2025 Brain/Head without Contrast Normal [facility] CBC W/Diff, Automatedon Absolute Lymph 1.64 X10 3/uL Normal 0.83-4.51 [facility] Comment on above: Performed By: #### L 100.0100, L500.4050, L503.5510 ####[facility] [address] [place], [address] Absolute Neut 5.6 X10 3/uL Normal 2.0-7.7 [facility] Comment on above: Performed By: #### L 100.0100, L500.4050, L503.5510 ####[facility] [address] [place], [address] Basophils/100 WBC (Bld) 0.7 % Normal 0-1 [facility] Comment on above: Performed By: #### L 100.0100, L500.4050, L503.5510 ####[facility] [address] [place], [address] Eosinophils/100 WBC (Bld) 2.9 % Normal 0-5 [facility] Comment on above: Performed By: #### L 100.0100, L500.4050, L503.5510 ####[facility] [address] [place], [address] Erythrocyte distribution width (RBC) [Ratio] 15.0 % High 11.6-14.6 [facility] Comment on above: Performed By: #### L 100.0100, L500.4050, L503.5510 ####[facility] [address] [place], [address] Hematocrit (Bld) [Volume fraction] 42.2 % Normal 40-54 [facility] Comment on above: Performed By: #### L 100.0100, L500.4050, L503.5510 ####[facility] [address] [place], [address] Hemoglobin (Bld) [Mass/Vol] 14.1 g/dL Normal 13.0-16.5 [facility] Comment on above: Performed By: #### L 100.0100, L500.4050, L503.5510 ####[facility] [address] [place], [address] IG% 0.900 Normal 0.0-0.9 [facility] Comment on above: Result Comment: IG% - Immature Granulocytes (promyelocytes, myelocytes andmetamyelocytes) > 1% indicates that a LEFT SHIFT is Present. Performed By: #### L 100.0100, L500.4050, L503.5510 ####[facility] [address] [place], [address] Lymphocytes/100 WBC (Bld) 20.3 % Normal 19-41 [facility] Comment on above: Performed By: #### L 100.0100, L500.4050, L503.5510 ####[facility] [address] [place], [address] MCH (RBC) [Entitic mass] 30.5 pg Normal 27.0-32.0 [facility] Comment on above: Performed By: #### L 100.0100, L500.4050, L503.5510 ####[facility] [address] [place], [address] MCHC (RBC) [Mass/Vol] 33.4 g/dL Normal 32-36 [facility] Comment on above: Performed By: #### L 100.0100, L500.4050, L503.5510 ####[facility] [address] [place], [address] MCV (RBC) [Entitic vol] 91.3 fL Normal 80-94 [facility] Comment on above: Performed By: #### L 100.0100, L500.4050, L503.5510 ####[facility] [address] [place], [address] Monocytes/100 WBC (Bld) 5.7 % Normal 0-10 [facility] Comment on above: Performed By: #### L 100.0100, L500.4050, L503.5510 ####[facility] [address] [place], [address] Neutrophils/100 WBC (Bld) 69.5 % Normal 47-70 [facility] Comment on above: Performed By: #### L 100.0100, L500.4050, L503.5510 ####[facility] [address] [place], [address] Nucleated RBC (Bld) [#/Vol] 0 10*3/uL Normal 0-5 [facility] Comment on above: Performed By: #### L 100.0100, L500.4050, L503.5510 ####[facility] [address] [place], [address] Platelet mean volume (Bld) [Entitic vol] 9.6 fL Normal 6.2-12.0 [facility] Comment on above: Performed By: #### L 100.0100, L500.4050, L503.5510 ####[facility] [address] [place], [address] Platelets (Bld) [#/Vol] 122 10*3/uL Low 150-450 [facility] Comment on above: Performed By: #### L 100.0100, L500.4050, L503.5510 ####[facility] [address] [place], [address] RBC (Bld) [#/Vol] 4.62 10*6/uL Normal 4.6-6.2 [facility] Comment on above: Performed By: #### L 100.0100, L500.4050, L503.5510 ####[facility] [address] [place], [address] RDW SD 49.8 fl High 35.1-43.9 [facility] Comment on above: Performed By: #### L 100.0100, L500.4050, L503.5510 ####[facility] [address] [place], [address] WBC (Bld) [#/Vol] 8.1 10*3/uL Normal 4.4-11.0 [facility] Comment on above: Performed By: #### L 100.0100, L500.4050, L503.5510 ####[facility] [address] [place], [address] Carbon dioxide, total [Moles /volume] in Central venous bloodOrdered By: Gene Monroy on 01-06-2025 CO2 [Moles/Vol] 23.6 mmol/L 21.0-32.0 [facility] Chest 1 View (Portable)on Chest 1 View (Portable) Normal [facility] Chloride assayOrdered By: Guicho Monroy on 01-06-2025 Chloride [Moles/Vol] 100 mmol/L 98-108 [facility] Comprehensive Metabolic Prof ilon 01-06-2025 Albumin [Mass/Vol] 3.8 g/dL Normal 3.4-4.8 [facility] Comment on above: Performed By: #### L 100.0100, L500.4050, L503.5510 ####[facility] [address] [place], [address] Albumin/Globulin [Mass ratio] 1.0 {ratio} Normal 0.9-2.4 [facility] Comment on above: Performed By: #### L 100.0100, L500.4050, L503.5510 ####[facility] [address] [place], [address] ALK PHOS 84 U/L Normal 40-129 [facility] Comment on above: Performed By: #### L 100.0100, L500.4050, L503.5510 ####[facility] [address] [place], [address] ALT [Catalytic activity/Vol] 18 U/L Normal <=46 [facility] Comment on above: Performed By: #### L 100.0100, L500.4050, L503.5510 ####[facility] [address] [place], [address] AST [Catalytic activity/Vol] 20 U/L Normal <=37 [facility] Comment on above: Performed By: #### L 100.0100, L500.4050, L503.5510 ####[facility] [address] [place], [address] Bilirubin [Mass/Vol] 0.56 mg/dL Normal 0.00-1.30 [facility] Comment on above: Performed By: #### L 100.0100, L500.4050, L503.5510 ####[facility] [address] [place], [address] BUN/CRE 12.9 RATIO Normal 10-20 [facility] Comment on above: Performed By: #### L 100.0100, L500.4050, L503.5510 ####[facility] [address] [place], [address] Calcium [Mass/Vol] 9.6 mg/dL Normal 7.6-11.0 [facility] Comment on above: Performed By: #### L 100.0100, L500.4050, L503.5510 ####[facility] [address] [place], [address] Chloride [Moles/Vol] 100 mmol/L Normal 98-108 [facility] Comment on above: Performed By: #### L 100.0100, L500.4050, L503.5510 ####[facility] [address] [place], [address] CO2 [Moles/Vol] 23.6 mmol/L Normal 21.0-32.0 [facility] Comment on above: Performed By: #### L 100.0100, L500.4050, L503.5510 ####[facility] [address] [place], [address] Creatinine [Mass/Vol] 1.62 mg/dL High 0.70-1.20 [facility] Comment on above: Performed By: #### L 100.0100, L500.4050, L503.5510 ####[facility] [address] [place], [address] ECRCL 53.33 ml/min Normal 50-250 [facility] Comment on above: Performed By: #### L 100.0100, L500.4050, L503.5510 ####[facility] [address] [place], [address] GAP 12 Normal 5-15 [facility] Comment on above: Performed By: #### L 100.0100, L500.4050, L503.5510 ####[facility] [address] [place], [address] GFR/1.73 sq M.predicted among non-blacks MDRD (S/P/Bld) [Vol rate/Area] 44 mL/min/{1.73_m2} Low >60 [facility] Comment on above: Result Comment: mL/m in/1.73m2 CKD-EPI Creatinine Equation (2020) Performed By: #### L 100.0100, L500.4050, L503.5510 ####[facility] [address] [place], [address] Globulin (S) [Mass/Vol] 4.0 g/dL Normal 2.2-4.2 [facility] Comment on above: Performed By: #### L 100.0100, L500.4050, L503.5510 ####[facility] [address] [place], [address] Glucose [Mass/Vol] 156 mg/dL High 70-99 [facility] Comment on above: Performed By: #### L 100.0100, L500.4050, L503.5510 ####[facility] [address] [place], [address] Potassium [Moles/Vol] 4.4 mmol/L Normal 3.3-5.1 [facility] Comment on above: Performed By: #### L 100.0100, L500.4050, L503.5510 ####[facility] [address] [place], [address] Sodium [Moles/Vol] 135 mmol/L Normal 133-145 [facility] Comment on above: Performed By: #### L 100.0100, L500.4050, L503.5510 ####[facility] [address] [place], [address] T PROT 7.8 g/dL Normal 5.9-8.4 [facility] Comment on above: Performed By: #### L 100.0100, L500.4050, L503.5510 ####[facility] [address] [place], [address] Urea nitrogen [Mass/Vol] 21 mg/dL High 4-19 [facility] Comment on above: Performed By: #### L 100.0100, L500.4050, L503.5510 ####[facility] [address] [place], [address] Emergency Department Summary on 01-06-2025 Emergency Department Summary Normal [facility] Eosinophil percentageOrdered By: Gene Monroy on 01-06-2025 Eosinophils/100 WBC (Bld) 2.9 % 0-5 [facility] Erythrocyte distribution wid th ratioOrdered By: Gene Monroy on 01-06-2025 Erythrocyte distribution width (RBC) [Ratio] 15.0 % High 11.6-14.6 [facility] Erythrocyte distribution wid th standard deviationOrdered By: Gene Monroy on 01-06-2025 Erythrocyte distribution width (RBC) [Ratio] 49.8 fl High 35.1-43.9 [facility] Glomerular filtration rate ( GFR) estimation/1.73 sq m using serum, plasma, or whole bOrdered By: Gene Monroy on 01-06-2025 GFR/1.73 sq M.predicted among non-blacks MDRD (S/P/Bld) [Vol rate/Area] 44 mL/min/{1.73_m2} Low >60 [facility] Comment on above: mL/min/1.73m2 CKD-EP I Creatinine Equation (2020) H AND P Exam - Hospital[facility] 01-06-2025 H&P Exam - Hospitalist Normal [facility] Hematocrit Auto (Bld) [Volum e fraction]Ordered By: Gene Monroy on 01-06-2025 Hematocrit (Bld) [Volume fraction] 42.2 % 40-54 [facility] Hemoglobin measurementOrdere d By: Gene Monroy on 01-06-2025 Hemoglobin (Bld) [Mass/Vol] 14.1 g/dL 13.0-16.5 [facility] Immature granulocytes/100 WB C Auto (Bld)Ordered By: Gene Monroy on 01-06-2025 Immature granulocytes/100 WBC (Bld) 0.900 % 0.0-0.9 [facility] Comment on above: IG% - Immature Granu locytes (promyelocytes, myelocytes and metamyelocytes) > 1% indicates that a LEFT SHIFT is Present. Ketones Test strip Ql (U)Ord ered By: Gene Monroy on 01-06-2025 Ketones Ql (U) Negative Negative [facility] Laboratory - Chemistry and C hemistry - challengeOrdered By: Gene Monroy on 01-06-2025 AST [Catalytic activity/Vol] 20 U/L <38 [facility] MCV (mean corpuscular volume ) determinationOrdered By: Gene Monroy on 01-06-2025 MCV (RBC) [Entitic vol] 91.3 fL 80-94 [facility] Mean corpuscular hemoglobin (MCH) determinationOrdered By: Gene Monroy on 01-06-2025 MCH (RBC) [Entitic mass] 30.5 pg 27.0-32.0 [facility] Mean corpuscular hemoglobin concentration (MCHC) determinationOrdered By: Gene Monroy on 01-06-2025 MCHC (RBC) [Mass/Vol] 33.4 g/dL 32-36 [facility] Mean platelet volume determi nationOrdered By: Gene Monroy on 01-06-2025 Platelet mean volume (Bld) [Entitic vol] 9.6 fL 6.2-12.0 [facility] Microscopic analysis of urin e for red blood cells (RBC)Ordered By: Gene Monroy on 01-06-2025 Microscopic analysis of urine for red blood cells (RBC) 10-25 SEEN /hpf 0-5 [facility] Monocyte percentageOrdered B y: Gene Monroy on 01-06-2025 Monocytes/100 WBC (Bld) 5.7 % 0-10 [facility] Mucus LM Ql (Urine sed)Order ed By: Gene Monroy on 01-06-2025 Mucus Ql (Urine sed) 0 SEEN /hpf [facility] Neutrophil percentageOrdered By: Gene Monroy on 01-06-2025 Neutrophils/100 WBC (Bld) 69.5 % 47-70 [facility] Nitrite Test strip Ql (U)Ord ered By: Gene Monroy on 01-06-2025 Nitrite Ql (U) Negative Negative [facility] Nucleated red blood cell per centageOrdered By: Gene Monroy on 01-06-2025 Nucleated RBC/100 WBC (Bld) [Ratio] 0 % 0-5 [facility] Platelet countOrdered By: Guicho Monroy on 01-06-2025 Platelets (Bld) [#/Vol] 122 10*3/uL Low 150-450 [facility] Potassium measurement (mass/ volume)Ordered By: Gene Monroy on 01-06-2025 Potassium (Unsp spec) [Mass/Vol] 4.4 mmol/L 3.3-5.1 [facility] Protein Test strip Ql (U)Ord ered By: Gene Monroy on 01-06-2025 Protein Ql (U) 30 mg/dl High Negative [facility] RBC Auto (Bld) [#/Vol]Ordere d By: Gene Monroy on 01-06-2025 RBC (Bld) [#/Vol] 4.62 10*6/uL 4.6-6.2 [facility] Serum creatinine measurement (mass/volume)Ordered By: Gene Monroy on 01-06-2025 Creatinine [Mass/Vol] 1.62 mg/dL High 0.70-1.20 [facility] Serum globulin measurementOr dered By: Gene Monroy on 01-06-2025 Globulin (S) [Mass/Vol] 4.0 g/dL 2.2-4.2 [facility] Serum glucose measurement (m ass/volume)Ordered By: Gene Monroy on 01-06-2025 Glucose [Mass/Vol] 156 mg/dL High 70-99 [facility] Serum or plasma alanine wylie otransferase (ALT) measurementOrdered By: Gene Monroy on 01-06-2025 ALT [Catalytic activity/Vol] 18 U/L <47 [facility] Serum or plasma albumin maricel urement (mass/volume)Ordered By: Gene Monroy on 01-06-2025 Albumin [Mass/Vol] 3.8 g/dL 3.4-4.8 [facility] Serum or plasma albumin/glob ulin mass ratioOrdered By: Gene Monroy on 01-06-2025 Albumin/Globulin [Mass ratio] 1.0 {ratio} 0.9-2.4 [facility] Serum or plasma alkaline ivan sphatase measurementOrdered By: Gene Monroy on 01-06-2025 ALP [Catalytic activity/Vol] 84 U/L 40-129 [facility] Serum or plasma calcium maricel urement (mass/volume)Ordered By: Gene Monroy on 01-06-2025 Calcium [Mass/Vol] 9.6 mg/dL 7.6-11.0 [facility] Serum or plasma urea nitroge n measurement (mass/volume)Ordered By: Gene Monroy on 01-06-2025 Urea nitrogen [Mass/Vol] 21 mg/dL High 4-19 [facility] Sodium levelOrdered By: Gene Monroy on 01-06-2025 Sodium [Moles/Vol] 135 mmol/L 133-145 [facility] Squamous epithelial cells de tection in urine sediment by light microscopyOrdered By: Gene Monroy on 01-06-2025 Epithelial cells.squamous LM Ql (Urine sed) 0-5 SEEN /hpf 0-5 [facility] Total proteinOrdered By: Simin Monroy on 01-06-2025 Protein [Mass/Vol] 7.8 g/dL 5.9-8.4 [facility] Urinalysis, Completeon 01-06 EPI,SQUAMOUS 0-5 SEEN Normal 0-5 [facility] Comment on above: Order Comment: CLEAN CATCH Performed By: #### L 400.0001 ####[facility] [address] [place], [place], [id number] BACTERIA 1+ /hpf Normal None Seen [facility] Comment on above: Order Comment: CLEAN CATCH Performed By: #### L 400.0001 ####[facility] [address] [place], [address] RBC 10-25 SEEN Normal 0-5 [facility] Comment on above: Order Comment: CLEAN CATCH Performed By: #### L 400.0001 ####[facility] [address] [place], [address] WBC 25-50 SEEN Normal 0-5 [facility] Comment on above: Order Comment: CLEAN CATCH Performed By: #### L 400.0001 ####[facility] [address] [place], [address] YEAST 3+ /hpf Normal None Seen [facility] Comment on above: Order Comment: CLEAN CATCH Performed By: #### L 400.0001 ####[facility] [address] [place], [address] Mucus Ql (Urine sed) 0 SEEN Normal [facility] Comment on above: Order Comment: CLEAN CATCH Performed By: #### L 400.0001 ####[facility] [address] [place], [place], [address] Urine clarityOrdered By: Simin Monroy on 01-06-2025 Clarity (U) Cloudy Clear [facility] Urine color determinationOrd ered By: Gene Monroy on 01-06-2025 Color (U) Straw Yellow [facility] Urine cultureOrdered By: Simin Monroy on 01-06-2025 Bacteria identified Cx Nom (U) Yeast, not Callie albicans Abnormal [facility] Bacteria identified Cx Nom (U) Yeast, not Callie albicans#[address] [facility] Urine glucose detectionOrder ed By: Gene Monroy on 01-06-2025 Glucose Ql (U) 1000 mg/dl High Normal [facility] Urine leukocyte esterase det ection by dipstickOrdered By: Gene Monroy on 01-06-2025 Leukocyte esterase Test strip Ql (U) 500 /ul High Negative [facility] Urine pHOrdered By: Gene carty on 01-06-2025 pH (U) 6.0 [pH] 5.0 - 8.0 [facility] Urine sediment bacteria coun t by microscopy (number/high power field)Ordered By: Gene Monroy on 01-06-2025 Bacteria LM.HPF (Urine sed) [#/Area] 1 /[HPF] None Seen [facility] Urine sediment yeast count b y microscopy (number/high powered field)Ordered By: Gene Monroy on 01-06-2025 Yeast LM.HPF (Urine sed) [#/Area] 3 /[HPF] None Seen [facility] Urine specific gravity measu rementOrdered By: Gene Monroy on 01-06-2025 Specific gravity (U) [Rel density] 1.015 1.002-1.030 [facility] Urine urobilinogen measureme ntOrdered By: Gene Monroy on 01-06-2025 Urobilinogen Ql (U) Normal mg/dl Normal [facility] Venous blood ammonia measure mentOrdered By: Gene Monroy on 01-06-2025 Ammonia (P) [Moles/Vol] 12.8 umol/L Low 16-60 [facility] White blood cell (WBC) count Ordered By: Gene Monroy on 01-06-2025 WBC (Bld) [#/Vol] 8.1 10*3/uL 4.4-11.0 [facility] White blood cell countOrdere d By: Gene Monroy on 01-06-2025 White blood cell count 25-50 SEEN /hpf 0-5 [facility] Absolute lymphocyte countOrd ered By: Jocelyn Polk on 10-19-2024 Lymphocytes Auto (Unsp spec) [#/Vol] 1.16 10*3/uL 0.83-4.51 [facility] Absolute neutrophil countOrd ered By: Jocelyn Polk on 10-19-2024 Neutrophils (Bld) [#/Vol] 3.4 10*3/uL 2.0-7.7 [facility] Anion gap in Serum or Plasma Ordered By: Jocelyn Polk on 10-19-2024 Anion gap [Moles/Vol] 14 mmol/L 5-15 [facility] Automated lymphocyte count a s percentage of total leukocytesOrdered By: Jocelyn Polk on 10-19-2024 Lymphocytes/100 WBC Auto (Unsp spec) 22.7 % 19-41 [facility] BUN/creatinine ratioOrdered By: Jocelyn Polk on 10-19-2024 Urea nitrogen/Creatinine [Mass ratio] 9.4 mg/mg Low 10-20 [facility] Basic Metabolic Profile (BMP )on 10-19-2024 BUN/CRE 9.4 RATIO Low 10-20 [facility] Comment on above: Performed By: #### L 100.0100, L500.2500 ####[facility] [address] [place], [address] Calcium [Mass/Vol] 8.8 mg/dL Normal 7.6-11.0 [facility] Comment on above: Performed By: #### L 100.0100, L500.2500 ####[facility] [address] [place], [address] Chloride [Moles/Vol] 100 mmol/L Normal 98-108 [facility] Comment on above: Performed By: #### L 100.0100, L500.2500 ####[facility] [address] [place], [address] CO2 [Moles/Vol] 23.0 mmol/L Normal 21.0-32.0 [facility] Comment on above: Performed By: #### L 100.0100, L500.2500 ####[facility] [address] [place], [address] Creatinine [Mass/Vol] 1.60 mg/dL High 0.70-1.20 [facility] Comment on above: Performed By: #### L 100.0100, L500.2500 ####[facility] [address] [place], [address] ECRCL 53.64 ml/min Normal 50-250 [facility] Comment on above: Performed By: #### L 100.0100, L500.2500 ####[facility] [address] [place], [address] GAP 14 Normal 5-15 [facility] Comment on above: Performed By: #### L 100.0100, L500.2500 ####[facility] [address] [place], [address] GFR/1.73 sq M.predicted among non-blacks MDRD (S/P/Bld) [Vol rate/Area] 45 mL/min/{1.73_m2} Low >60 [facility] Comment on above: Result Comment: mL/m in/1.73m2 CKD-EPI Creatinine Equation (2020) Performed By: #### L 100.0100, L500.2500 ####[facility] [address] [place], [address] Glucose [Mass/Vol] 171 mg/dL High 70-99 [facility] Comment on above: Performed By: #### L 100.0100, L500.2500 ####[facility] [address] [place], [address] Potassium [Moles/Vol] 3.8 mmol/L Normal 3.3-5.1 [facility] Comment on above: Performed By: #### L 100.0100, L500.2500 ####[facility] [address] [place], [address] Sodium [Moles/Vol] 137 mmol/L Normal 133-145 [facility] Comment on above: Performed By: #### L 100.0100, L500.2500 ####[facility] [address] [place], [address] Urea nitrogen [Mass/Vol] 15 mg/dL Normal 4-19 [facility] Comment on above: Performed By: #### L 100.0100, L500.2500 ####[facility] [address] [place], [address] Basophil percentageOrdered B y: Jocelyn Polk on 10-19-2024 Basophils/100 WBC (Bld) 0.8 % 0-1 [facility] Bedside Glucoseon - FINGERSTICK GLU 160 mg/dL High 74-106 [facility] Comment on above: Result Comment: NITZA GEMENT OF PATIENT CARE PER NURSING PROTOCOL Performed By: #### L 501.080 ####[facility] [address] [place], [address] FINGERSTICK GLU 140 mg/dL High 74-106 [facility] Comment on above: Result Comment: NITZA GEMENT OF PATIENT CARE PER NURSING PROTOCOL Performed By: #### L 501.080 ####[facility] [address] [place], [address] FINGERSTICK GLU 144 mg/dL High 74-106 [facility] Comment on above: Result Comment: NITZA GEMENT OF PATIENT CARE PER NURSING PROTOCOL Performed By: #### L 501.080 ####[facility] [address] [place], [address] CBC W/Diff, Automatedon - Absolute Lymph 1.16 X10 3/uL Normal 0.83-4.51 [facility] Comment on above: Performed By: #### L 100.0100, L500.2500 ####[facility] [address] [place], [address] Absolute Neut 3.4 X10 3/uL Normal 2.0-7.7 [facility] Comment on above: Performed By: #### L 100.0100, L500.2500 ####[facility] [address] [place], [address] Basophils/100 WBC (Bld) 0.8 % Normal 0-1 [facility] Comment on above: Performed By: #### L 100.0100, L500.2500 ####[facility] [address] [place], [address] Eosinophils/100 WBC (Bld) 2.3 % Normal 0-5 [facility] Comment on above: Performed By: #### L 100.0100, L500.2500 ####[facility] [address] [place], [address] Erythrocyte distribution width (RBC) [Ratio] 14.5 % Normal 11.6-14.6 [facility] Comment on above: Performed By: #### L 100.0100, L500.2500 ####[facility] [address] [place], [address] Hematocrit (Bld) [Volume fraction] 39.9 % Low 40-54 [facility] Comment on above: Performed By: #### L 100.0100, L500.2500 ####[facility] [address] [place], [address] Hemoglobin (Bld) [Mass/Vol] 13.3 g/dL Normal 13.0-16.5 [facility] Comment on above: Performed By: #### L 100.0100, L500.2500 ####[facility] [address] [place], [address] IG% 1.000 High 0.0-0.9 [facility] Comment on above: Result Comment: IG% - Immature Granulocytes (promyelocytes, myelocytes andmetamyelocytes) > 1% indicates that a LEFT SHIFT is Present. Performed By: #### L 100.0100, L500.2500 ####[facility] [address] [place], [address] Lymphocytes/100 WBC (Bld) 22.7 % Normal 19-41 [facility] Comment on above: Performed By: #### L 100.0100, L500.2500 ####[facility] [address] [place], [address] MCH (RBC) [Entitic mass] 30.5 pg Normal 27.0-32.0 [facility] Comment on above: Performed By: #### L 100.0100, L500.2500 ####[facility] [address] [place], [address] MCHC (RBC) [Mass/Vol] 33.3 g/dL Normal 32-36 [facility] [facility] Comment on above: Performed By: #### L 100.0100, L500.2500 ####[facility] [address] [place], [address] MCV (RBC) [Entitic vol] 91.5 fL Normal 80-94 [facility] Comment on above: Performed By: #### L 100.0100, L500.2500 ####[facility] [address] [place], [address] Monocytes/100 WBC (Bld) 6.4 % Normal 0-10 [facility] Comment on above: Performed By: #### L 100.0100, L500.2500 ####[facility] [address] [place], [address] Neutrophils/100 WBC (Bld) 66.8 % Normal 47-70 [facility] Comment on above: Performed By: #### L 100.0100, L500.2500 ####[facility] [address] [place], [address] Nucleated RBC (Bld) [#/Vol] 0 10*3/uL Normal 0-5 [facility] Comment on above: Performed By: #### L 100.0100, L500.2500 ####[facility] [address] [place], [address] Platelet mean volume (Bld) [Entitic vol] 8.8 fL Normal 6.2-12.0 [facility] Comment on above: Performed By: #### L 100.0100, L500.2500 ####[facility] [address] [place], [address] Platelets (Bld) [#/Vol] 110 10*3/uL Low 150-450 [facility] Comment on above: Performed By: #### L 100.0100, L500.2500 ####[facility] [address] [place], [address] RBC (Bld) [#/Vol] 4.36 10*6/uL Low 4.6-6.2 [facility] Comment on above: Performed By: #### L 100.0100, L500.2500 ####[facility] [address] [place], [address] RDW SD 48.9 fl High 35.1-43.9 [facility] Comment on above: Performed By: #### L 100.0100, L500.2500 ####[facility] [address] [place], [address] WBC (Bld) [#/Vol] 5.1 10*3/uL Normal 4.4-11.0 [facility] Comment on above: Performed By: #### L 100.0100, L500.2500 ####[facility] [address] [place], [address] Carbon dioxide, total [Moles /volume] in Central venous bloodOrdered By: Jocelyn Polk on 10-19-2024 CO2 [Moles/Vol] 23.0 mmol/L 21.0-32.0 [facility] Chloride assayOrdered By: Brant Polk on 10-19-2024 Chloride [Moles/Vol] 100 mmol/L 98-108 [facility] Culture, Blood (WB)on 2024 CUB Blood cultures x2, from two different sites No growth in [address] [facility] Comment on above: Performed By: #### M 200.1000 ####[facility] [address] [place], [address] Discharge Instructionon 10-02 Discharge Instruction Normal [facility] Eosinophil percentageOrdered By: Jocelyn Polk on 10-19-2024 Eosinophils/100 WBC (Bld) 2.3 % 0-5 [facility] Erythrocyte distribution wid th ratioOrdered By: Jocelyn Polk on 10-19-2024 Erythrocyte distribution width (RBC) [Ratio] 14.5 % 11.6-14.6 [facility] Erythrocyte distribution wid th standard deviationOrdered By: Jocelyn Polk on 10-19-2024 Erythrocyte distribution width (RBC) [Ratio] 48.9 fl High 35.1-43.9 [facility] Glomerular filtration rate ( GFR) estimation/1.73 sq m using serum, plasma, or whole bOrdered By: Jocelyn Polk on 10-19-2024 GFR/1.73 sq M.predicted among non-blacks MDRD (S/P/Bld) [Vol rate/Area] 45 mL/min/{1.73_m2} Low >60 [facility] Comment on above: mL/min/1.73m2 CKD-EP I Creatinine Equation (2020) [facility] deOrdered By: Jocelyn Polk on 10-19-2024 Glucose [Mass/Vol] 160 mg/dL High 74-106 [facility] Comment on above: MANAGEMENT OF PATIEN T CARE PER NURSING PROTOCOL Hematocrit Auto (Bld) [Volum e fraction]Ordered By: Jocelyn Polk on 10-19-2024 Hematocrit (Bld) [Volume fraction] 39.9 % Low 40-54 [facility] Hemoglobin measurementOrdere d By: Jocelyn Polk on 10-19-2024 Hemoglobin (Bld) [Mass/Vol] 13.3 g/dL 13.0-16.5 [facility] Immature granulocytes/100 WB C Auto (Bld)Ordered By: Jocelyn Polk on 10-19-2024 Immature granulocytes/100 WBC (Bld) 1.000 % High 0.0-0.9 [facility] Comment on above: IG% - Immature Granu locytes (promyelocytes, myelocytes and metamyelocytes) > 1% indicates that a LEFT SHIFT is Present. MCV (mean corpuscular volume ) determinationOrdered By: Jocelyn Polk on 10-19-2024 MCV (RBC) [Entitic vol] 91.5 fL 80-94 [facility] Mean corpuscular hemoglobin (MCH) determinationOrdered By: Jocelyn Polk on 10-19-2024 MCH (RBC) [Entitic mass] 30.5 pg 27.0-32.0 [facility] Mean corpuscular hemoglobin concentration (MCHC) determinationOrdered By: Jocelyn Polk on 10-19-2024 MCHC (RBC) [Mass/Vol] 33.3 g/dL 32-36 [facility] Mean platelet volume determi nationOrdered By: Jocelyn Polk on 10-19-2024 Platelet mean volume (Bld) [Entitic vol] 8.8 fL 6.2-12.0 [facility] Monocyte percentageOrdered B y: Jocelyn Polk on 10-19-2024 Monocytes/100 WBC (Bld) 6.4 % 0-10 [facility] Neutrophil percentageOrdered By: Jocelyn Polk on 10-19-2024 Neutrophils/100 WBC (Bld) 66.8 % 47-70 [facility] Nucleated red blood cell per centageOrdered By: Jocelyn Polk on 10-19-2024 Nucleated RBC/100 WBC (Bld) [Ratio] 0 % 0-5 [facility] Platelet countOrdered By: Brant Polk on 10-19-2024 Platelets (Bld) [#/Vol] 110 10*3/uL Low 150-450 [facility] Potassium measurement (mass/ volume)Ordered By: Jocelyn Polk on 10-19-2024 Potassium (Unsp spec) [Mass/Vol] 3.8 mmol/L 3.3-5.1 [facility] RBC Auto (Bld) [#/Vol]Ordere d By: Jocelyn Polk on 10-19-2024 RBC (Bld) [#/Vol] 4.36 10*6/uL Low 4.6-6.2 [facility] Serum creatinine measurement (mass/volume)Ordered By: Jocelyn Polk on 10-19-2024 Creatinine [Mass/Vol] 1.60 mg/dL High 0.70-1.20 [facility] Serum glucose measurement (m ass/volume)Ordered By: Jocelyn Polk on 10-19-2024 Glucose [Mass/Vol] 171 mg/dL High 70-99 [facility] Serum or plasma calcium maricel urement (mass/volume)Ordered By: Jocelyn Polk on 10-19-2024 Calcium [Mass/Vol] 8.8 mg/dL 7.6-11.0 [facility] Serum or plasma urea nitroge n measurement (mass/volume)Ordered By: Jocelyn Polk on 10-19-2024 Urea nitrogen [Mass/Vol] 15 mg/dL 4-19 [facility] Sodium levelOrdered By: Meredith Polk on 10-19-2024 Sodium [Moles/Vol] 137 mmol/L 133-145 [facility] White blood cell (WBC) count Ordered By: Jocelyn Polk on 10-19-2024 WBC (Bld) [#/Vol] 5.1 10*3/uL 4.4-11.0 [facility] Bedside Glucoseon 10-18-2024 FINGERSTICK GLU 145 mg/dL High [address] [facility] Comment on above: Result Comment: NITZA GEMENT OF PATIENT CARE PER NURSING PROTOCOL Performed By: #### L 501.080 ####[facility] [address] [facility] [address] FINGERSTICK GLU 209 mg/dL High [address] [place] [address] Comment on above: Result Comment: NITZA GEMENT OF PATIENT CARE PER NURSING PROTOCOL Performed By: #### L 501.080 ####[facility] [address] [place], [address] FINGERSTICK GLU 167 mg/dL High [address] [place] [address] Comment on above: Result Comment: INTZA GEMENT OF PATIENT CARE PER NURSING PROTOCOL Performed By: #### L 501.080 ####[facility] [address] [place], [address] Bedside Glucoseon 10-17-2024 FINGERSTICK GLU 137 mg/dL High [facility]106 [facility] Comment on above: Result Comment: NITZA GEMENT OF PATIENT CARE PER NURSING PROTOCOL Performed By: #### L 501.080 ####[facility] [address] [place], [address] FINGERSTICK GLU 128 mg/dL High [facility]106 [facility] Comment on above: Result Comment: NITZA GEMENT OF PATIENT CARE PER NURSING PROTOCOL Performed By: #### L 501.080 ####[facility] [address] [place], [address] FINGERSTICK GLU 186 mg/dL High 74-106 [facility] Comment on above: Result Comment: NITZA GEMENT OF PATIENT CARE PER NURSING PROTOCOL Performed By: #### L 501.080 ####[facility] [address] [place], [address] FINGERSTICK GLU 168 mg/dL High 74-106 [facility] Comment on above: Result Comment: NITZA GEMENT OF PATIENT CARE PER NURSING PROTOCOL Performed By: #### L 501.080 ####[facility] [address] [place], [address] FINGERSTICK GLU 166 mg/dL High -106 [facility] Comment on above: Result Comment: NITZA GEMENT OF PATIENT CARE PER NURSING PROTOCOL Performed By: #### L 501.080 ####[facility] [address] [place], [address] Bedside Glucoseon 10-16-2024 FINGERSTICK GLU 135 mg/dL High -106 [facility] Comment on above: Result Comment: NITZA GEMENT OF PATIENT CARE PER NURSING PROTOCOL Performed By: #### L 501.080 ####[facility] [address] [place], [address] FINGERSTICK GLU 152 mg/dL High 74[address] [place] [address] Comment on above: Result Comment: NITZA GEMENT OF PATIENT CARE PER NURSING PROTOCOL Performed By: #### L 501.080 ####[facility] [address] [place], [address] FINGERSTICK GLU 156 mg/dL High 74-106 [facility] Comment on above: Result Comment: NITZA GEMENT OF PATIENT CARE PER NURSING PROTOCOL Performed By: #### L 501.080 ####[facility] [address] [place], [address] FINGERSTICK GLU 185 mg/dL High 74-106 [facility] Comment on above: Result Comment: NITZA GEMENT OF PATIENT CARE PER NURSING PROTOCOL Performed By: #### L 501.080 ####[facility] [address] [place], [address] FINGERSTICK GLU 178 mg/dL High 74-106 [facility] Comment on above: Result Comment: NITZA GEMENT OF PATIENT CARE PER NURSING PROTOCOL Performed By: #### L 501.080 ####[facility] [address] [place], [address] Urine Cultureon 10-16-2024 URC Yeast, not Callie albicans [place] Count 50,000-80,[address] [facility] Comment on above: Performed By: #### M 100.2200 ####[facility] [address] [place], [address] Bedside Glucoseon 10-15-2024 FINGERSTICK GLU 246 mg/dL High -106 [facility] Comment on above: Result Comment: NITZA GEMENT OF PATIENT CARE PER NURSING PROTOCOL Performed By: #### L 501.080 ####[facility] [address] [place], [address] FINGERSTICK GLU 138 mg/dL High 74-106 [facility] Comment on above: Result Comment: NITZA GEMENT OF PATIENT CARE PER NURSING PROTOCOL Performed By: #### L 501.080 ####[facility] [address] [place], [address] FINGERSTICK GLU 129 mg/dL High -106 [facility] Comment on above: Result Comment: NITZA GEMENT OF PATIENT CARE PER NURSING PROTOCOL Performed By: #### L 501.080 ####[facility] [address] [place], [address] FINGERSTICK GLU 109 mg/dL High 74-106 [facility] Comment on above: Result Comment: NITZA GEMENT OF PATIENT CARE PER NURSING PROTOCOL Performed By: #### L 501.080 ####[facility] [address] [place], [address] Bedside Glucoseon 10-14-2024 FINGERSTICK GLU 135 mg/dL High [address] [place] [address] Comment on above: Result Comment: NITZA GEMENT OF PATIENT CARE PER NURSING PROTOCOL Performed By: #### L 501.080 ####[facility] [address] [place], [address] FINGERSTICK GLU 171 mg/dL High [address] [place] [address] Comment on above: Result Comment: NITZA GEMENT OF PATIENT CARE PER NURSING PROTOCOL Performed By: #### L 501.080 ####[facility] [address] [place], [address] FINGERSTICK GLU 168 mg/dL High [address] [place] [address] Comment on above: Result Comment: NITZA GEMENT OF PATIENT CARE PER NURSING PROTOCOL Performed By: #### L 501.080 ####[facility] [address] [place], [address] FINGERSTICK GLU 114 mg/dL [address] Comment on above: Result Comment: NITZA GEMENT OF PATIENT CARE PER NURSING PROTOCOL Performed By: #### L 501.080 ####[facility] [address] [place], [address] Bilirubin, totalOrdered By: Bisi Rivera on 10-14-2024 Bilirubin [Mass/Vol] 0.50 mg/dL 0.00-1.30 [facility] CBC W/Diff, Automatedon 10-02 Absolute Lymph 1.61 X10 3/uL Normal 0.83-4.51 [facility] Comment on above: Performed By: #### L 100.0100, L501.2300, L501.5200, L500.4050 ####[facility] [address] [place], [address] Absolute Neut 3.8 X10 3/uL Normal 2.0-7.7 [facility] Comment on above: Performed By: #### L 100.0100, L501.2300, L501.5200, L500.4050 ####[facility] [address] [place], [address] Basophils/100 WBC (Bld) 0.6 % Normal 0-1 [facility] Comment on above: Performed By: #### L 100.0100, L501.2300, L501.5200, L500.4050 ####[facility] [address] [place], [address] Eosinophils/100 WBC (Bld) 3.2 % Normal 0-5 [facility] Comment on above: Performed By: #### L 100.0100, L501.2300, L501.5200, L500.4050 ####[facility] [address] [place], [address] Erythrocyte distribution width (RBC) [Ratio] 14.6 % Normal 11.6-14.6 [facility] Comment on above: Performed By: #### L 100.0100, L501.2300, L501.5200, L500.4050 ####[facility] [address] [place], [address] Hematocrit (Bld) [Volume fraction] 40.9 % Normal 40-54 [facility] Comment on above: Performed By: #### L 100.0100, L501.2300, L501.5200, L500.4050 ####[facility] [address] [place], [address] Hemoglobin (Bld) [Mass/Vol] 13.2 g/dL Normal 13.0-16.5 [facility] Comment on above: Performed By: #### L 100.0100, L501.2300, L501.5200, L500.4050 ####[facility] [address] [place], [address] IG% 1.300 High 0.0-0.9 [facility] Comment on above: Result Comment: IG% - Immature Granulocytes (promyelocytes, myelocytes andmetamyelocytes) > 1% indicates that a LEFT SHIFT is Present. Performed By: #### L 100.0100, L501.2300, L501.5200, L500.4050 ####[facility] [address] [place], [address] Lymphocytes/100 WBC (Bld) 26.1 % Normal 19-41 [facility] Comment on above: Performed By: #### L 100.0100, L501.2300, L501.5200, L500.4050 ####[facility] [address] [place], [address] MCH (RBC) [Entitic mass] 30.3 pg Normal 27.0-32.0 [facility] Comment on above: Performed By: #### L 100.0100, L501.2300, L501.5200, L500.4050 ####[facility] [address] [place], [address] MCHC (RBC) [Mass/Vol] 32.3 g/dL Normal 32-36 [facility] Comment on above: Performed By: #### L 100.0100, L501.2300, L501.5200, L500.4050 ####[facility] [address] [place], [address] MCV (RBC) [Entitic vol] 93.8 fL Normal 80-94 [facility] Comment on above: Performed By: #### L 100.0100, L501.2300, L501.5200, L500.4050 ####[facility] [address] [place], [address] Monocytes/100 WBC (Bld) 7.8 % Normal 0-10 [facility] Comment on above: Performed By: #### L 100.0100, L501.2300, L501.5200, L500.4050 ####[facility] [address] [place], [address] Neutrophils/100 WBC (Bld) 61.0 % Normal 47-70 [facility] Comment on above: Performed By: #### L 100.0100, L501.2300, L501.5200, L500.4050 ####[facility] [address] [place], [address] Nucleated RBC (Bld) [#/Vol] 0 10*3/uL Normal 0-5 [facility] Comment on above: Performed By: #### L 100.0100, L501.2300, L501.5200, L500.4050 ####[facility] [address] [place], [address] Platelet mean volume (Bld) [Entitic vol] 9.4 fL Normal 6.2-12.0 [facility] Comment on above: Performed By: #### L 100.0100, L501.2300, L501.5200, L500.4050 ####[facility] [address] [place], [address] Platelets (Bld) [#/Vol] 117 10*3/uL Low 150-450 [facility] Comment on above: Performed By: #### L 100.0100, L501.2300, L501.5200, L500.4050 ####[facility] [address] [place], [address] RBC (Bld) [#/Vol] 4.36 10*6/uL Low 4.6-6.2 [facility] Comment on above: Performed By: #### L 100.0100, L501.2300, L501.5200, L500.4050 ####[facility] [address] [place], [address] RDW SD 50.6 fl High 35.1-43.9 [facility] Comment on above: Performed By: #### L 100.0100, L501.2300, L501.5200, L500.4050 ####[facility] [address] [place], [address] WBC (Bld) [#/Vol] 6.2 10*3/uL Normal 4.4-11.0 [facility] Comment on above: Performed By: #### L 100.0100, L501.2300, L501.5200, L500.4050 ####[facility] [address] [place], [address] Comprehensive Metabolic Prof [facility] 10-14-2024 Albumin [Mass/Vol] 3.4 g/dL Normal 3.4-4.8 [facility] Comment on above: Performed By: #### L 100.0100, L501.2300, L501.5200, L500.4050 ####[facility] [address] [place], [address] Albumin/Globulin [Mass ratio] 1.0 {ratio} Normal 0.9-2.4 [facility] Comment on above: Performed By: #### L 100.0100, L501.2300, L501.5200, L500.4050 ####[facility] [address] [place], [address] ALK PHOS 76 U/L Normal 40-129 [facility] Comment on above: Performed By: #### L 100.0100, L501.2300, L501.5200, L500.4050 ####[facility] [address] [place], [address] ALT [Catalytic activity/Vol] 14 U/L Normal <=46 [facility] Comment on above: Performed By: #### L 100.0100, L501.2300, L501.5200, L500.4050 ####[facility] [address] [place], [address] AST [Catalytic activity/Vol] 27 U/L Normal <=37 [facility] Comment on above: Result Comment: Hemo lysis present, Results??could be affected.?? Performed By: #### L 100.0100, L501.2300, L501.5200, L500.4050 ####[facility] [address] [place], [address] Bilirubin [Mass/Vol] 0.50 mg/dL Normal 0.00-1.30 [facility] Comment on above: Performed By: #### L 100.0100, L501.2300, L501.5200, L500.4050 ####[facility] [address] [place], [address] BUN/CRE 11.8 RATIO Normal 10-20 [facility] Comment on above: Performed By: #### L 100.0100, L501.2300, L501.5200, L500.4050 ####[facility] [address] [place], [address] Calcium [Mass/Vol] 8.4 mg/dL Normal 7.6-11.0 [facility] Comment on above: Performed By: #### L 100.0100, L501.2300, L501.5200, L500.4050 ####[facility] [address] [place], [address] Chloride [Moles/Vol] 105 mmol/L Normal 98-108 [facility] Comment on above: Performed By: #### L 100.0100, L501.2300, L501.5200, L500.4050 ####[facility] [address] [place], [address] CO2 [Moles/Vol] 19.8 mmol/L Low 21.0-32.0 [facility] Comment on above: Performed By: #### L 100.0100, L501.2300, L501.5200, L500.4050 ####[facility] [address] [place], [address] Creatinine [Mass/Vol] 1.63 mg/dL High 0.70-1.20 [facility] Comment on above: Performed By: #### L 100.0100, L501.2300, L501.5200, L500.4050 ####[facility] [address] [place], [address] ECRCL 54.22 ml/min Normal 50-250 [facility] Comment on above: Performed By: #### L 100.0100, L501.2300, L501.5200, L500.4050 ####[facility] [address] [place], [address] GAP 12 Normal 5-15 [facility] Comment on above: Performed By: #### L 100.0100, L501.2300, L501.5200, L500.4050 ####[facility] [address] [place], [address] GFR/1.73 sq M.predicted among non-blacks MDRD (S/P/Bld) [Vol rate/Area] 44 mL/min/{1.73_m2} Low >60 [facility] Comment on above: Result Comment: mL/m in/1.73m2 CKD-EPI Creatinine Equation (2020) Performed By: #### L 100.0100, L501.2300, L501.5200, L500.4050 ####[facility] [address] [place], [address] Globulin (S) [Mass/Vol] 3.4 g/dL Normal 2.2-4.2 [facility] Comment on above: Performed By: #### L 100.0100, L501.2300, L501.5200, L500.4050 ####[facility] [address] [place], [address] Glucose [Mass/Vol] 128 mg/dL High 70-99 [facility] Comment on above: Performed By: #### L 100.0100, L501.2300, L501.5200, L500.4050 ####[facility] [address] [place], [address] Potassium [Moles/Vol] 4.3 mmol/L Normal 3.3-5.1 [facility] Comment on above: Result Comment: Hemo lysis present, Results??could be affected.?? Performed By: #### L 100.0100, L501.2300, L501.5200, L500.4050 ####[facility] [address] [place], [address] Sodium [Moles/Vol] 136 mmol/L Normal 133-145 [facility] Comment on above: Performed By: #### L 100.0100, L501.2300, L501.5200, L500.4050 ####[facility] [address] [place], [address] T PROT 6.8 g/dL Normal 5.9-8.4 [facility] Comment on above: Performed By: #### L 100.0100, L501.2300, L501.5200, L500.4050 ####[facility] [address] [place], [address] Urea nitrogen [Mass/Vol] 19 mg/dL Normal 4-19 [facility] Comment on above: Performed By: #### L 100.0100, L501.2300, L501.5200, L500.4050 ####[facility] [address] [place], [address] Laboratory - Chemistry and C hemistry - challengeOrdered By: Bisi Rivera on 10-14-2024 AST [Catalytic activity/Vol] 27 U/L <38 [facility] Comment on above: Hemolysis present, R esults could be affected. Lactic Acidon 10-14-2024 Lactate [Moles/Vol] 1.6 mmol/L Normal 0.0-2.0 [facility] Comment on above: Performed By: #### L 503.6005 ####[facility] [address] [place], [address] Lactic acid measurementOrder ed By: Nick Coyle on 10-14-2024 Lactate [Moles/Vol] 1.6 mmol/L 0.0-2.0 [facility] Magnesiumon 10-14-2024 Magnesium [Mass/Vol] 1.9 mg/dL Normal 1.5-2.2 [facility] Comment on above: Performed By: #### L 100.0100, L501.2300, L501.5200, L500.4050 ####[facility] [address] [place], [address] Magnesium measurement (mass/ volume)Ordered By: Bisi Rivera on 10-14-2024 Magnesium (Unsp spec) [Mass/Vol] 1.9 mg/dL 1.5-2.2 [facility] Phosphoruson 10-14-2024 Phosphate [Mass/Vol] 2.9 mg/dL Normal 2.7-4.5 [facility] Comment on above: Performed By: #### L 100.0100, L501.2300, L501.5200, L500.4050 ####[facility] [address] [place], [address] Serum globulin measurementOr dered By: Bisi Rivera on 10-14-2024 Globulin (S) [Mass/Vol] 3.4 g/dL 2.2-4.2 [facility] Serum or plasma alanine wylie otransferase (ALT) measurementOrdered By: Bisi Rivera on 10-14-2024 ALT [Catalytic activity/Vol] 14 U/L <47 [facility] Serum or plasma albumin maricel urement (mass/volume)Ordered By: Bisi Rivera on 10-14-2024 Albumin [Mass/Vol] 3.4 g/dL 3.4-4.8 [facility] Serum or plasma albumin/glob ulin mass ratioOrdered By: Bisi Rivera on 10-14-2024 Albumin/Globulin [Mass ratio] 1.0 {ratio} 0.9-2.4 [facility] Serum or plasma alkaline ivan sphatase measurementOrdered By: Bisi Rivera on 10-14-2024 ALP [Catalytic activity/Vol] 76 U/L 40-129 [facility] Total proteinOrdered By: Hyun Rivera on 10-14-2024 Protein [Mass/Vol] 6.8 g/dL 5.9-8.4 [facility] Abdomen/Pelvis without Conto n 10-13-2024 Abdomen/Pelvis without Cont Normal [facility] Absolute lymphocyte countOrd ered By: Nick Coyle on 10-13-2024 Lymphocytes Auto (Unsp spec) [#/Vol] 1.75 10*3/uL 0.83-4.51 [facility] Absolute neutrophil countOrd ered By: Nick Leonides on 10-13-2024 Neutrophils (Bld) [#/Vol] 5.5 10*3/uL 2.0-7.7 [facility] Anion gap in Serum or Plasma Ordered By: Nick Coyle on 10-13-2024 Anion gap [Moles/Vol] 15 mmol/L 5-15 [facility] Automated lymphocyte count a s percentage of total leukocytesOrdered By: Nick Coyle on 10-13-2024 Lymphocytes/100 WBC Auto (Unsp spec) 21.5 % 19-41 [facility] BUN/creatinine ratioOrdered By: Nick Coyle on 06-12-2025 Urea nitrogen/Creatinine [Mass ratio] 10.7 mg/mg 10- [facility] Basic Metabolic Profile (BMP )on 10-13-2024 BUN/CRE 10.7 RATIO Normal - [facility] Comment on above: Performed By: #### L 100.0100, L500.2500, L503.6005 ####[facility] [address] [place], [address] Calcium [Mass/Vol] 8.9 mg/dL Normal 7.6-11.0 [facility] Comment on above: Performed By: #### L 100.0100, L500.2500, L503.6005 ####[facility] [address] [place], [address] Chloride [Moles/Vol] 101 mmol/L Normal 98-108 [facility] Comment on above: Performed By: #### L 100.0100, L500.2500, L503.6005 ####[facility] [address] [place], [address] CO2 [Moles/Vol] 19.3 mmol/L Low 21.0-32.0 [facility] Comment on above: Performed By: #### L 100.0100, L500.2500, L503.6005 ####[facility] [address] [place], [address] Creatinine [Mass/Vol] 1.96 mg/dL High 0.70-1.20 [facility] Comment on above: Performed By: #### L 100.0100, L500.2500, L503.6005 ####[facility] [address] [place], [address] ECRCL 44.76 ml/min Low 50-250 [facility] Comment on above: Performed By: #### L 100.0100, L500.2500, L503.6005 ####[facility] [address] [place], [address] GAP 15 Normal 5-15 [facility] Comment on above: Performed By: #### L 100.0100, L500.2500, L503.6005 ####[facility] [address] [place], [address] GFR/1.73 sq M.predicted among non-blacks MDRD (S/P/Bld) [Vol rate/Area] 35 mL/min/{1.73_m2} Low >60 [facility] Comment on above: Result Comment: mL/m in/1.73m2 CKD-EPI Creatinine Equation (2020) Performed By: #### L 100.0100, L500.2500, L503.6005 ####[facility] [address] [place], [address] Glucose [Mass/Vol] 239 mg/dL High 70-99 [facility] Comment on above: Performed By: #### L 100.0100, L500.2500, L503.6005 ####[facility] [address] [place], [address] Potassium [Moles/Vol] 4.3 mmol/L Normal 3.3-5.1 [facility] Comment on above: Performed By: #### L 100.0100, L500.2500, L503.6005 ####[facility] [address] [place], [address] Sodium [Moles/Vol] 135 mmol/L Normal 133-145 [facility] Comment on above: Performed By: #### L 100.0100, L500.2500, L503.6005 ####[facility] [address] [place], [address] Urea nitrogen [Mass/Vol] 21 mg/dL High 4-19 [facility] Comment on above: Performed By: #### L 100.0100, L500.2500, L503.6005 ####[facility] [address] [place], [address] Basophil percentageOrdered B y: Nick Leonides on 10-13-2024 Basophils/100 WBC (Bld) 0.9 % 0-1 [facility] Bilirubin Test strip Ql (U)O rdered By: Nickronan Coyle on 10-13-2024 Bilirubin Ql (U) Negative Negative [facility] Blood cultureOrdered By: Ousmane ferraro Leonides on 10-13-2024 Bacteria identified Cx Nom (Bld) No growth in [address] [facility] CBC W/Diff, Automatedon 10-02-2024 Absolute Lymph 1.75 X10 3/uL Normal 0.83-4.51 [facility] Comment on above: Performed By: #### L 100.0100, L500.2500, L503.6005 ####[facility] [address] [place], [address] Absolute Neut 5.5 X10 3/uL Normal 2.0-7.7 [facility] Comment on above: Performed By: #### L 100.0100, L500.2500, L503.6005 ####[facility] [address] [place], [address] Basophils/100 WBC (Bld) 0.9 % Normal 0-1 [facility] Comment on above: Performed By: #### L 100.0100, L500.2500, L503.6005 ####[facility] [address] [place], [address] Eosinophils/100 WBC (Bld) 2.9 % Normal 0-5 [facility] Comment on above: Performed By: #### L 100.0100, L500.2500, L503.6005 ####[facility] [address] [place], [address] Erythrocyte distribution width (RBC) [Ratio] 14.6 % Normal 11.6-14.6 [facility] Comment on above: Performed By: #### L 100.0100, L500.2500, L503.6005 ####[facility] [address] [place], [address] Hematocrit (Bld) [Volume fraction] 42.8 % Normal 40-54 [facility] Comment on above: Performed By: #### L 100.0100, L500.2500, L503.6005 ####[facility] [address] [place], [address] Hemoglobin (Bld) [Mass/Vol] 14.0 g/dL Normal 13.0-16.5 [facility] Comment on above: Performed By: #### L 100.0100, L500.2500, L503.6005 ####[facility] [address] [place], [address] IG% 1.000 High 0.0-0.9 [facility] Comment on above: Result Comment: IG% - Immature Granulocytes (promyelocytes, myelocytes andmetamyelocytes) > 1% indicates that a LEFT SHIFT is Present. Performed By: #### L 100.0100, L500.2500, L503.6005 ####[facility] [address] [place], [address] Lymphocytes/100 WBC (Bld) 21.5 % Normal 19-41 [facility] Comment on above: Performed By: #### L 100.0100, L500.2500, L503.6005 ####[facility] [address] [place], [address] MCH (RBC) [Entitic mass] 30.5 pg Normal 27.0-32.0 [facility] Comment on above: Performed By: #### L 100.0100, L500.2500, L503.6005 ####[facility] [address] [place], [address] MCHC (RBC) [Mass/Vol] 32.7 g/dL Normal 32-36 [facility] Comment on above: Performed By: #### L 100.0100, L500.2500, L503.6005 ####[facility] [address] [place], [address] MCV (RBC) [Entitic vol] 93.2 fL Normal 80-94 [facility] Comment on above: Performed By: #### L 100.0100, L500.2500, L503.6005 ####[facility] [address] [place], [address] Monocytes/100 WBC (Bld) 6.6 % Normal 0-10 [facility] Comment on above: Performed By: #### L 100.0100, L500.2500, L503.6005 ####[facility] [address] [place], [address] Neutrophils/100 WBC (Bld) 67.1 % Normal 47-70 [facility] Comment on above: Performed By: #### L 100.0100, L500.2500, L503.6005 ####[facility] [address] [place], [address] Nucleated RBC (Bld) [#/Vol] 0 10*3/uL Normal 0-5 [facility] Comment on above: Performed By: #### L 100.0100, L500.2500, L503.6005 ####[facility] [address] [place], [address] Platelet mean volume (Bld) [Entitic vol] 9.1 fL Normal 6.2-12.0 [facility] Comment on above: Performed By: #### L 100.0100, L500.2500, L503.6005 ####[facility] [address] [place], [address] Platelets (Bld) [#/Vol] 142 10*3/uL Low 150-450 [facility] Comment on above: Performed By: #### L 100.0100, L500.2500, L503.6005 ####[facility] [address] [place], [address] RBC (Bld) [#/Vol] 4.59 10*6/uL Low 4.6-6.2 [facility] Comment on above: Performed By: #### L 100.0100, L500.2500, L503.6005 ####[facility] [address] [place], [address] RDW SD 50.2 fl High 35.1-43.9 [facility] Comment on above: Performed By: #### L 100.0100, L500.2500, L503.6005 ####[facility] [address] [place], [address] WBC (Bld) [#/Vol] 8.1 10*3/uL Normal 4.4-11.0 [facility] Comment on above: Performed By: #### L 100.0100, L500.2500, L503.6005 ####[facility] [address] [place], [address] Carbon dioxide, total [Moles /volume] in Central venous bloodOrdered By: Nick Coyle on 10-13-2024 CO2 [Moles/Vol] 19.3 mmol/L Low 21.0-32.0 [facility] Chloride assayOrdered By: Cecil Coyle on 10-13-2024 Chloride [Moles/Vol] 101 mmol/L 98-108 [facility] Emergency Department Summary on 10-13-20[address] [facility] Eosinophil percentageOrdered By: Nick Coyle on 10-13-2024 Eosinophils/100 WBC (Bld) 2.9 % 0-5 [facility] Erythrocyte distribution wid th ratioOrdered By: Nick Coyle on 10-13-2024 Erythrocyte distribution width (RBC) [Ratio] 14.6 % 11.6-14.6 [facility] Erythrocyte distribution wid th standard deviationOrdered By: Nick Ortiz on 10-13-2024 Erythrocyte distribution width (RBC) [Ratio] 50.2 fl High 35.1-43.9 [facility] Glomerular filtration rate ( GFR) estimation/1.73 sq m using serum, plasma, or whole bOrdered By: Nick Coyle on 10-13-2024 GFR/1.73 sq M.predicted among non-blacks MDRD (S/P/Bld) [Vol rate/Area] 35 mL/min/{1.73_m2} Low >60 [facility] Comment on above: mL/min/1.73m2 CKD-EP I Creatinine Equation (2020) H AND P Exam - [facility] 10-13-2024 H&P Exam - Hospitalist Normal [facility] Hematocrit Auto (Bld) [Volum e fraction]Ordered By: Nick Coyle on 10-13-2024 Hematocrit (Bld) [Volume fraction] 42.8 % 40-54 [facility] Hemoglobin measurementOrdere d By: Nick Coyle on 10-13-2024 Hemoglobin (Bld) [Mass/Vol] 14.0 g/dL 13.0-16.5 [facility] Immature granulocytes/100 WB C Auto (Bld)Ordered By: Nick Coyle on 10-13-2024 Immature granulocytes/100 WBC (Bld) 1.000 % High 0.0-0.9 [facility] Comment on above: IG% - Immature Granu locytes (promyelocytes, myelocytes and metamyelocytes) > 1% indicates that a LEFT SHIFT is Present. Ketones Test strip Ql (U)Ord ered By: Nick Coyle on 10-13-2024 Ketones Ql (U) Negative Negative [facility] Lactic Acidon 10-13-2024 Lactate [Moles/Vol] 3.7 mmol/L Invalid Interpretation Code 0.0-2.0 [facility] Comment on above: Order Comment: Y Result Comment: Crit ical Result(s) Called EFINK at: 2118 by:CORAL??Results read back by same. Performed By: #### L 100.0100, L500.2500, L503.6005 ####[facility] [address] [place], [address] MCV (mean corpuscular volume ) determinationOrdered By: Nick Coyle on 10-13-2024 MCV (RBC) [Entitic vol] 93.2 fL 80-94 [facility] Mean corpuscular hemoglobin (MCH) determinationOrdered By: [facility] on 10-13-2024 MCH (RBC) [Entitic mass] 30.5 pg 27.0-32.0 [facility] Mean corpuscular hemoglobin concentration (MCHC) determinationOrdered By: Nickronan Coyle on 10-13-2024 MCHC (RBC) [Mass/Vol] 32.7 g/dL 32-36 [facility] Mean platelet volume determi nationOrdered By: Nick Coyle on 10-13-2024 Platelet mean volume (Bld) [Entitic vol] 9.1 fL 6.2-12.0 [facility] Microscopic analysis of urin e for red blood cells (RBC)Ordered By: Nick Coyle on 10-13-2024 Microscopic analysis of urine for red blood cells (RBC) 0 SEEN /hpf 0-5 [facility] Monocyte percentageOrdered B y: Nick Coyle on 10-13-2024 Monocytes/100 WBC (Bld) 6.6 % 0-10 [facility] Mucus LM Ql (Urine sed)Order ed By: Nick Coyle on 10-13-2024 Mucus Ql (Urine sed) 0 SEEN /hpf [facility] Neutrophil percentageOrdered By: Nick Leonides on 10-13-2024 Neutrophils/100 WBC (Bld) 67.1 % 47-70 [facility] Nitrite Test strip Ql (U)Ord ered By: Nick Coyle on 10-13-2024 Nitrite Ql (U) Negative Negative [facility] Nucleated red blood cell per centageOrdered By: Nick Coyle on 10-13-2024 Nucleated RBC/100 WBC (Bld) [Ratio] 0 % 0-5 [facility] Platelet countOrdered By: Cecil Coyle on 10-13-2024 Platelets (Bld) [#/Vol] 142 10*3/uL Low 150-450 [facility] Potassium measurement (mass/ volume)Ordered By: Nick Coyle on 10-13-2024 Potassium (Unsp spec) [Mass/Vol] 4.3 mmol/L 3.3-5.1 [facility] Protein Test strip Ql (U)Ord ered By: Nick Coyle on 10-13-2024 Protein Ql (U) 100 mg/dl High Negative [facility] RBC Auto (Bld) [#/Vol]Ordere d By: Nick Coyle on 10-13-2024 RBC (Bld) [#/Vol] 4.59 10*6/uL Low 4.6-6.2 [facility] Serum creatinine measurement (mass/volume)Ordered By: Nick Coyle on 10-13-2024 Creatinine [Mass/Vol] 1.96 mg/dL High 0.70-1.20 [facility] Serum glucose measurement (m ass/volume)Ordered By: Nick Coyle on 10-13-2024 Glucose [Mass/Vol] 239 mg/dL High 70-99 [facility] Serum or plasma calcium maricel urement (mass/volume)Ordered By: Nick Ortiz on 10-13-2024 Calcium [Mass/Vol] 8.9 mg/dL 7.6-11.0 [facility] Serum or plasma urea nitroge n measurement (mass/volume)Ordered By: Ncik Coyle on 10-13-2024 Urea nitrogen [Mass/Vol] 21 mg/dL High 4-19 [facility] Sodium levelOrdered By: Kvng Coyle on 10-13-2024 Sodium [Moles/Vol] 135 mmol/L 133-145 [facility] Squamous epithelial cells de tection in urine sediment by light microscopyOrdered By: Nick Coyle on 10-13-2024 Epithelial cells.squamous LM Ql (Urine sed) 0 SEEN /hpf 0-5 [facility] Urinalysis, Completeon 10-13 WBC >100 SEEN Normal 0-5 [facility] Comment on above: Order Comment: CLEAN CATCH Result Comment: Micr oscopic field is filled. Other elements may beobscured. Performed By: #### L 400.0001 ####[facility] [address] [place], [address] BACTERIA 0 SEEN Normal None Seen [facility] Comment on above: Order Comment: CLEAN CATCH Performed By: #### L 400.0001 ####[facility] [address] [place], [address] EPI,SQUAMOUS 0 SEEN Normal 0-5 [facility] Comment on above: Order Comment: CLEAN CATCH Performed By: #### L 400.0001 ####[facility] [address] [place], [address] Mucus Ql (Urine sed) 0 SEEN Normal [facility] Comment on above: Order Comment: CLEAN CATCH Performed By: #### L 400.0001 ####[facility] [address] [place], [address] RBC 0 SEEN Normal 0-5 [facility] Comment on above: Order Comment: CLEAN CATCH Performed By: #### L 400.0001 ####[facility] [address] [place], [address] Urine clarityOrdered By: Ousmane Coyle on 10-13-2024 Clarity (U) Turbid Clear [facility] Urine color determinationOrd ered By: Nick Coyle on 10-13-2024 Color (U) Yellow Yellow [facility] Urine cultureOrdered By: Ousmane Coyle on 10-13-2024 Bacteria identified Cx Nom (U) Yeast, not Callie albicans Abnormal [facility] Urine glucose detectionOrder ed By: Nick Coyle on 10-13-2024 Glucose Ql (U) 1000 mg/dl High Normal [facility] Urine leukocyte esterase det ection by dipstickOrdered By: Nick Coyle on 10-13-2024 Leukocyte esterase Test strip Ql (U) 500 /ul High Negative [facility] Urine pHOrdered By: Nick Resendiz on 10-13-2024 pH (U) 6.0 [pH] 5.0 - 8.0 [facility] Urine sediment bacteria coun t by microscopy (number/high power field)Ordered By: Nick Coyle on 10-13-2024 Bacteria LM.HPF (Urine sed) [#/Area] 0 /[HPF] None Seen [facility] Urine specific gravity measu rementOrdered By: Nickronan Coyle on 10-13-2024 Specific gravity (U) [Rel density] 1.020 1.002-1.030 [facility] Urine urobilinogen measureme ntOrdered By: Nick Martín on 10-13-2024 Urobilinogen Ql (U) Normal mg/dl Normal [facility] White blood cell (WBC) count Ordered By: Nick Coyle on 10-13-2024 WBC (Bld) [#/Vol] 8.1 10*3/uL 4.4-11.0 [facility] White blood cell countOrdere d By: Nick Coyle on 10-13-2024 White blood cell count >100 SEEN /hpf 0-5 [facility] Comment on above: Microscopic field is filled. Other elements may be obscured. Culture, Blood (WB)on 2024 CUB Blood cultures x2, from two different sites No growth in [address] [facility] Comment on above: Performed By: #### L 300.4310, L500.4050, L509.7001, M200.1000, L100.0100, L503.6005, L300.3900 ####[facility] [address] [place], [address] Basic Metabolic Profile (BMP )on 08-24-2024 BUN Normal 4-19 [facility] Comment on above: Result Comment: Canc elled via OM: Order cancelled - Patient discharged Performed By: #### L 500.2500, L100.0100 ####[facility] [address] [place], [address] BUN/CRE Normal 10-20 [facility] Comment on above: Result Comment: Canc elled via OM: Order cancelled - Patient discharged Performed By: #### L 500.2500, L100.0100 ####[facility] [address] [place], [address] Calcium Normal 7.6-11.0 [facility] Comment on above: Result Comment: Canc elled via OM: Order cancelled - Patient discharged Performed By: #### L 500.2500, L100.0100 ####[facility] [address] [place], [address] CL Normal 98-108 [facility] Comment on above: Result Comment: Canc elled via OM: Order cancelled - Patient discharged Performed By: #### L 500.2500, L100.0100 ####[facility] [address] [place], [address] CO2 Normal 21.0-32.0 [facility] Comment on above: Result Comment: Canc elled via OM: Order cancelled - Patient discharged Performed By: #### L 500.2500, L100.0100 ####[facility] [address] [place], [address] CREAT,SERUM Normal 0.70-1.20 [facility] Comment on above: Result Comment: Canc elled via OM: Order cancelled - Patient discharged Performed By: #### L 500.2500, L100.0100 ####[facility] [address] [place], [address] eGFR Normal >60 [facility] Comment on above: Result Comment: Canc elled via OM: Order cancelled - Patient discharged Performed By: #### L 500.2500, L100.0100 ####[facility] [address] [place], [address] GAP Normal 5-15 [facility] Comment on above: Result Comment: Canc elled via OM: Order cancelled - Patient discharged Performed By: #### L 500.2500, L100.0100 ####[facility] [address] [place], [address] GLU Normal 70-99 [facility] Comment on above: Result Comment: Canc elled via OM: Order cancelled - Patient discharged Performed By: #### L 500.2500, L100.0100 ####[facility] [address] [place], [address] Potassium Normal 3.3-5.1 [facility] Comment on above: Result Comment: Canc elled via OM: Order cancelled - Patient discharged Performed By: #### L 500.2500, L100.0100 ####[facility] [address] [place], [address] Basic Metabolic Profile (BMP) Normal 133-145 [facility] Comment on above: Result Comment: Canc elled via OM: Order cancelled - Patient discharged Performed By: #### L 500.2500, L100.0100 ####[facility] [address] [place], [address] CBC W/Diff, Automatedon 04-2 Absolute Neut Normal 2.0-7.7 [facility] Comment on above: Result Comment: Canc elled via OM: Order cancelled - Patient discharged Performed By: #### L 500.2500, L100.0100 ####[facility] [address] [place], [address] HCT Normal 40-54 [facility] Comment on above: Result Comment: Canc elled via OM: Order cancelled - Patient discharged Performed By: #### L 500.2500, L100.0100 ####[facility] [address] [place], [address] HGB Normal 13.0-16.5 [facility] Comment on above: Result Comment: Canc elled via OM: Order cancelled - Patient discharged Performed By: #### L 500.2500, L100.0100 ####[facility] [address] [place], [address] MCH Normal 27.0-32.0 [facility] Comment on above: Result Comment: Canc elled via OM: Order cancelled - Patient discharged Performed By: #### L 500.2500, L100.0100 ####[facility] [address] [place], [address] MCHC Normal 32-36 [facility] Comment on above: Result Comment: Canc elled via OM: Order cancelled - Patient discharged Performed By: #### L 500.2500, L100.0100 ####[facility] [address] [place], [address] MCV Normal 80-94 [facility] Comment on above: Result Comment: Canc elled via OM: Order cancelled - Patient discharged Performed By: #### L 500.2500, L100.0100 ####[facility] [address] [place], [address] NEUT% Normal 47-70 [facility] Comment on above: Result Comment: Canc elled via OM: Order cancelled - Patient discharged Performed By: #### L 500.2500, L100.0100 ####[facility] [address] [place], [address] PLT Normal 150-450 [facility] Comment on above: Result Comment: Canc elled via OM: Order cancelled - Patient discharged Performed By: #### L 500.2500, L100.0100 ####[facility] [address] [place], [address] RBC Normal 4.6-6.2 [facility] Comment on above: Result Comment: Canc elled via OM: Order cancelled - Patient discharged Performed By: #### L 500.2500, L100.0100 ####[facility] [address] [place], [address] RDW CV Normal 11.6-14.6 [facility] Comment on above: Result Comment: Canc elled via OM: Order cancelled - Patient discharged Performed By: #### L 500.2500, L100.0100 ####[facility] [address] [place], [address] RDW SD Normal 35.1-43.9 [facility] Comment on above: Result Comment: Canc elled via OM: Order cancelled - Patient discharged Performed By: #### L 500.2500, L100.0100 ####[facility] [address] [place], [address] WBC Normal 4.4-11.0 [facility] Comment on above: Result Comment: Canc elled via OM: Order cancelled - Patient discharged Performed By: #### L 500.2500, L100.0100 ####[facility] [address] [place], [address] Absolute lymphocyte countOrd ered By: Mao Muse on 08-23-2024 Lymphocytes Auto (Unsp spec) [#/Vol] 1.69 10*3/uL 0.83-4.51 [facility] Absolute neutrophil countOrd ered By: Mao Muse on 08-23-2024 Neutrophils (Bld) [#/Vol] 3.3 10*3/uL 2.0-7.7 [facility] Anion gap in Serum or Plasma Ordered By: Mao Muse on 08-23-2024 Anion gap [Moles/Vol] 10 mmol/L 5-15 [facility] Automated lymphocyte count a s percentage of total leukocytesOrdered By: Mao Muse on 08-23-2024 Lymphocytes/100 WBC Auto (Unsp spec) 28.5 % 19-41 [facility] BUN/creatinine ratioOrdered By: Mao Muse on 08-23-2024 Urea nitrogen/Creatinine [Mass ratio] 9.0 mg/mg Low - [facility] Basic Metabolic Profile (BMP )on 08-23-2024 BUN/CRE 9.0 RATIO Low 10- [facility] Comment on above: Performed By: #### L 100.0100, L500.2500 ####[facility] [address] [place], [address] Calcium [Mass/Vol] 8.6 mg/dL Normal 7.6-11.0 [facility] Comment on above: Performed By: #### L 100.0100, L500.2500 ####[facility] [address] [place], [address] Chloride [Moles/Vol] 105 mmol/L Normal 98-108 [facility] Comment on above: Performed By: #### L 100.0100, L500.2500 ####[facility] [address] [place], [address] CO2 [Moles/Vol] 21.6 mmol/L Normal 21.0-32.0 [facility] Comment on above: Performed By: #### L 100.0100, L500.2500 ####[facility] [address] [place], [address] Creatinine [Mass/Vol] 1.46 mg/dL High 0.70-1.20 [facility] Comment on above: Performed By: #### L 100.0100, L500.2500 ####[facility] [address] [place], [address] ECRCL 61.10 ml/min Normal 50-250 [facility] Comment on above: Performed By: #### L 100.0100, L500.2500 ####[facility] [address] [place], [address] GAP 10 Normal 5-15 [facility] Comment on above: Performed By: #### L 100.0100, L500.2500 ####[facility] [address] [place], [address] GFR/1.73 sq M.predicted among non-blacks MDRD (S/P/Bld) [Vol rate/Area] 50 mL/min/{1.73_m2} Low >60 [facility] Comment on above: Result Comment: mL/m in/1.73m2 CKD-EPI Creatinine Equation (2020) Performed By: #### L 100.0100, L500.2500 ####[facility] [address] [place], [address] Glucose [Mass/Vol] 159 mg/dL High 70-99 [facility] Comment on above: Performed By: #### L 100.0100, L500.2500 ####[facility] [address] [place], [address] Potassium [Moles/Vol] 4.0 mmol/L Normal 3.3-5.1 [facility] Comment on above: Performed By: #### L 100.0100, L500.2500 ####[facility] [address] [place], [address] Sodium [Moles/Vol] 136 mmol/L Normal 133-145 [facility] Comment on above: Performed By: #### L 100.0100, L500.2500 ####[facility] [address] [place], [address] Urea nitrogen [Mass/Vol] 13 mg/dL Normal 4-19 [facility] Comment on above: Performed By: #### L 100.0100, L500.2500 ####[facility] [address] [place], [address] Basophil percentageOrdered B y: Mao Muse on 08-23-2024 Basophils/100 WBC (Bld) 1.0 % 0-1 [facility] Bedside Glucoseon 08-23-2024 FINGERSTICK GLU 178 mg/dL High 74-106 [facility] Comment on above: Result Comment: NITZA GEMENT OF PATIENT CARE PER NURSING PROTOCOL Performed By: #### L 501.080 ####[facility] [address] [place], [address] FINGERSTICK GLU 148 mg/dL High 74-106 [facility] Comment on above: Result Comment: NITZA GEMENT OF PATIENT CARE PER NURSING PROTOCOL Performed By: #### L 501.080 ####[facility] [address] [place], [address] CBC W/Diff, Automatedon 08-03 Absolute Lymph 1.69 X10 3/uL Normal 0.83-4.51 [facility] Comment on above: Performed By: #### L 100.0100, L500.2500 ####[facility] [address] [place], [address] Absolute Neut 3.3 X10 3/uL Normal 2.0-7.7 [facility] Comment on above: Performed By: #### L 100.0100, L500.2500 ####[facility] [address] [place], [address] Basophils/100 WBC (Bld) 1.0 % Normal 0-1 [facility] Comment on above: Performed By: #### L 100.0100, L500.2500 ####[facility] [address] [place], [address] Eosinophils/100 WBC (Bld) 5.1 % High 0-5 [facility] Comment on above: Performed By: #### L 100.0100, L500.2500 ####[facility] [address] [place], [address] Erythrocyte distribution width (RBC) [Ratio] 14.8 % High 11.6-14.6 [facility] Comment on above: Performed By: #### L 100.0100, L500.2500 ####[facility] [address] [place], [address] Hematocrit (Bld) [Volume fraction] 35.5 % Low 40-54 [facility] Comment on above: Performed By: #### L 100.0100, L500.2500 ####[facility] [address] [place], [address] Hemoglobin (Bld) [Mass/Vol] 11.7 g/dL Low 13.0-16.5 [facility] Comment on above: Performed By: #### L 100.0100, L500.2500 ####[facility] [address] [place], [address] IG% 1.000 High 0.0-0.9 [facility] Comment on above: Result Comment: IG% - Immature Granulocytes (promyelocytes, myelocytes andmetamyelocytes) > 1% indicates that a LEFT SHIFT is Present. Performed By: #### L 100.0100, L500.2500 ####[facility] [address] [place], [address] Lymphocytes/100 WBC (Bld) 28.5 % Normal 19-41 [facility] Comment on above: Performed By: #### L 100.0100, L500.2500 ####[facility] [address] [place], [address] MCH (RBC) [Entitic mass] 30.9 pg Normal 27.0-32.0 [facility] Comment on above: Performed By: #### L 100.0100, L500.2500 ####[facility] [address] [place], [address] MCHC (RBC) [Mass/Vol] 33.0 g/dL Normal 32-36 [facility] Comment on above: Performed By: #### L 100.0100, L500.2500 ####[facility] [address] [place], [address] MCV (RBC) [Entitic vol] 93.7 fL Normal 80-94 [facility] Comment on above: Performed By: #### L 100.0100, L500.2500 ####[facility] [address] [place], [address] Monocytes/100 WBC (Bld) 8.1 % Normal 0-10 [facility] Comment on above: Performed By: #### L 100.0100, L500.2500 ####[facility] [address] [place], [address] Neutrophils/100 WBC (Bld) 56.3 % Normal 47-70 [facility] Comment on above: Performed By: #### L 100.0100, L500.2500 ####[facility] [address] [place], [address] Nucleated RBC (Bld) [#/Vol] 0 10*3/uL Normal 0-5 [facility] Comment on above: Performed By: #### L 100.0100, L500.2500 ####[facility] [address] [place], [address] Platelet mean volume (Bld) [Entitic vol] 8.8 fL Normal 6.2-12.0 [facility] Comment on above: Performed By: #### L 100.0100, L500.2500 ####[facility] [address] [place], [address] Platelets (Bld) [#/Vol] 103 10*3/uL Low 150-450 [facility] Comment on above: Performed By: #### L 100.0100, L500.2500 ####[facility] [address] [place], [address] RBC (Bld) [#/Vol] 3.79 10*6/uL Low 4.6-6.2 [facility] Comment on above: Performed By: #### L 100.0100, L500.2500 ####[facility] [address] [place], [address] RDW SD 50.6 fl High 35.1-43.9 [facility] Comment on above: Performed By: #### L 100.0100, L500.2500 ####[facility] [address] [place], [address] WBC (Bld) [#/Vol] 5.9 10*3/uL Normal 4.4-11.0 [facility] Comment on above: Performed By: #### L 100.0100, L500.2500 ####[facility] [address] [place], [address] Carbon dioxide, total [Moles /volume] in Central venous bloodOrdered By: Mao Muse on 08-23-2024 CO2 [Moles/Vol] 21.6 mmol/L 21.0-32.0 [facility] Chloride assayOrdered By: Aarti Muse on 08-23-2024 Chloride [Moles/Vol] 105 mmol/L 98-108 [facility] Discharge Instructionon 08-03 Discharge Instruction Normal [facility] Eosinophil percentageOrdered By: Mao Muse on 08-23-2024 Eosinophils/100 WBC (Bld) 5.1 % High 0-5 [facility] Erythrocyte distribution wid th ratioOrdered By: Mao Muse on 08-23-2024 Erythrocyte distribution width (RBC) [Ratio] 14.8 % High 11.6-14.6 [facility] Erythrocyte distribution wid th standard deviationOrdered By: Mao Muse on 08-23-2024 Erythrocyte distribution width (RBC) [Ratio] 50.6 fl High 35.1-43.9 [facility] Glomerular filtration rate ( GFR) estimation/1.73 sq m using serum, plasma, or whole bOrdered By: Mao Muse on 08-23-2024 GFR/1.73 sq M.predicted among non-blacks MDRD (S/P/Bld) [Vol rate/Area] 50 mL/min/{1.73_m2} Low >60 [facility] Comment on above: mL/min/1.73m2 CKD-EP I Creatinine Equation (2020) [facility] By: Mao Muse on 08-23-2024 Glucose [Mass/Vol] 178 mg/dL High 74-106 [facility] Comment on above: MANAGEMENT OF PATIEN T CARE PER NURSING PROTOCOL Hematocrit Auto (Bld) [Volum e fraction]Ordered By: Mao Muse on 08-23-2024 Hematocrit (Bld) [Volume fraction] 35.5 % Low 40-54 [facility] Hemoglobin measurementOrdere d By: Mao Muse on 08-23-2024 Hemoglobin (Bld) [Mass/Vol] 11.7 g/dL Low 13.0-16.5 [facility] Immature granulocytes/100 WB C Auto (Bld)Ordered By: Mao Muse on 08-23-2024 Immature granulocytes/100 WBC (Bld) 1.000 % High 0.0-0.9 [facility] Comment on above: IG% - Immature Granu locytes (promyelocytes, myelocytes and metamyelocytes) > 1% indicates that a LEFT SHIFT is Present. MCV (mean corpuscular volume ) determinationOrdered By: Mao Muse on 08-23-2024 MCV (RBC) [Entitic vol] 93.7 fL 80-94 [facility] Mean corpuscular hemoglobin (MCH) determinationOrdered By: Mao Muse on 08-23-2024 MCH (RBC) [Entitic mass] 30.9 pg 27.0-32.0 [facility] Mean corpuscular hemoglobin concentration (MCHC) determinationOrdered By: Mao Muse on 08-23-2024 MCHC (RBC) [Mass/Vol] 33.0 g/dL 32-36 [facility] Mean platelet volume determi nationOrdered By: Mao Muse on 08-23-2024 Platelet mean volume (Bld) [Entitic vol] 8.8 fL 6.2-12.0 [facility] Monocyte percentageOrdered B y: Mao Muse on 08-23-2024 Monocytes/100 WBC (Bld) 8.1 % 0-10 [facility] Neutrophil percentageOrdered By: Mao Muse on 08-23-2024 Neutrophils/100 WBC (Bld) 56.3 % 47-70 [facility] Nucleated red blood cell per centageOrdered By: Mao Muse on 08-23-2024 Nucleated RBC/100 WBC (Bld) [Ratio] 0 % 0-5 [facility] Platelet countOrdered By: Aarti Muse on 08-23-2024 Platelets (Bld) [#/Vol] 103 10*3/uL Low 150-450 [facility] Potassium measurement (mass/ volume)Ordered By: Mao Muse on 08-23-2024 Potassium (Unsp spec) [Mass/Vol] 4.0 mmol/L 3.3-5.1 [facility] Protein+Creatinine Ratio,Uri neon 08-23-2024 PROT:CRE RATIO 718 mg/g CRE High 0-200 [facility] Comment on above: Performed By: #### L 501.0900 ####[facility] [address] [place], [address] Protein (U) [Mass/Vol] 44.6 mg/dL High 0.0-12.0 [facility] Comment on above: Performed By: #### L 501.0900 ####[facility] [address] [place], [address] UR CREAT 62.10 mg/dL Normal 39.00-259.00 [facility] Comment on above: Performed By: #### L 501.0900 ####[facility] [address] [place], [address] RBC Auto (Bld) [#/Vol]Ordere d By: Mao Muse on 08-23-2024 RBC (Bld) [#/Vol] 3.79 10*6/uL Low 4.6-6.2 [facility] Serum creatinine measurement (mass/volume)Ordered By: Mao Muse on 08-23-2024 Creatinine [Mass/Vol] 1.46 mg/dL High 0.70-1.20 [facility] Serum glucose measurement (m ass/volume)Ordered By: Mao Muse on 08-23-2024 Glucose [Mass/Vol] 159 mg/dL High 70-99 [facility] Serum or plasma calcium maricel urement (mass/volume)Ordered By: Mao Muse on 08-23-2024 Calcium [Mass/Vol] 8.6 mg/dL 7.6-11.0 [facility] Serum or plasma urea nitroge n measurement (mass/volume)Ordered By: Mao Muse on 08-23-2024 Urea nitrogen [Mass/Vol] 13 mg/dL 4-19 [facility] Sodium levelOrdered By: Ericka Muse on 08-23-2024 Sodium [Moles/Vol] 136 mmol/L 133-145 [facility] Urine Cultureon 08-23-[address] [facility] Comment on above: Performed By: #### M 100.2200, M100.678, L400.0001 ####[facility] [address] [place], [place], [address] White blood cell (WBC) count Ordered By: Mao Muse on 08-23-2024 WBC (Bld) [#/Vol] 5.9 10*3/uL 4.4-11.0 [facility] Bedside Glucoseon 08-22-2024 FINGERSTICK GLU 206 mg/dL High 74-106 [facility] Comment on above: Result Comment: NITZA GEMENT OF PATIENT CARE PER NURSING PROTOCOL Performed By: #### L 501.080 ####[facility] [address] [place], [place], [address] FINGERSTICK GLU 194 mg/dL High 74-106 [facility] Comment on above: Result Comment: NITZA GEMENT OF PATIENT CARE PER NURSING PROTOCOL Performed By: #### L 501.080 ####[facility] [address] [place], [address] FINGERSTICK GLU 178 mg/dL High 74-106 [facility] Comment on above: Result Comment: NITZA GEMENT OF PATIENT CARE PER NURSING PROTOCOL Performed By: #### L 501.080 ####[facility] [address] [place], [address] FINGERSTICK GLU 160 mg/dL High 74-106 [facility] Comment on above: Result Comment: NITZA GEMENT OF PATIENT CARE PER NURSING PROTOCOL Performed By: #### L 501.080 ####[facility] [address] [place], [address] Consultation - Infectious Dx on 08-22-2024 Consultation - Infectious Dx Normal [facility] Consultation - Nephrologyon 08-22-2024 Consultation - Nephrology Normal [facility] Random urine creatinine maricel urement (mass/volume)Ordered By: Cassy Stevenson on 08-22-2024 Creatinine Unsp time (U) [Mass/Vol] 62.10 mg/dL 39.00-259.00 [facility] Urine protein measurement (m ass/volume)Ordered By: Cassy Stevenson on 08-22-2024 Protein (U) [Mass/Vol] 44.6 mg/dL High 0.0-12.0 [facility] Urine protein/creatinine mas s ratioOrdered By: Cassy Stevenson on 08-22-2024 Protein/Creatinine (U) [Mass ratio] 718 mg/g CRE High 0-200 [facility] Basic Metabolic Profile (BMP )on 08-21-2024 BUN/CRE 10.9 RATIO Normal 10-20 [facility] Comment on above: Performed By: #### L 100.0500, L500.2500 ####[facility] [address] [place], [address] Calcium [Mass/Vol] 8.0 mg/dL Normal 7.6-11.0 [facility] Comment on above: Performed By: #### L 100.0500, L500.2500 ####[facility] [address] [place], [address] Chloride [Moles/Vol] 107 mmol/L Normal 98-108 [facility] Comment on above: Performed By: #### L 100.0500, L500.2500 ####[facility] [address] [place], [address] CO2 [Moles/Vol] 20.3 mmol/L Low 21.0-32.0 [facility] Comment on above: Performed By: #### L 100.0500, L500.2500 ####[facility] [address] [place], [address] Creatinine [Mass/Vol] 1.76 mg/dL High 0.70-1.20 [facility] Comment on above: Performed By: #### L 100.0500, L500.2500 ####[facility] [address] [place], [address] ECRCL 50.20 ml/min Normal 50-250 [facility] Comment on above: Performed By: #### L 100.0500, L500.2500 ####[facility] [address] [place], [address] GAP 10 Normal 5-15 [facility] Comment on above: Performed By: #### L 100.0500, L500.2500 ####[facility] [address] [place], [address] GFR/1.73 sq M.predicted among non-blacks MDRD (S/P/Bld) [Vol rate/Area] 40 mL/min/{1.73_m2} Low >60 [facility] Comment on above: Result Comment: mL/m in/1.73m2 CKD-EPI Creatinine Equation (2020) Performed By: #### L 100.0500, L500.2500 ####[facility] [address] [place], [address] Glucose [Mass/Vol] 144 mg/dL High 70-99 [facility] Comment on above: Performed By: #### L 100.0500, L500.2500 ####[facility] [address] [place], [address] Potassium [Moles/Vol] 4.2 mmol/L Normal 3.3-5.1 [facility] Comment on above: Performed By: #### L 100.0500, L500.2500 ####[facility] [address] [place], [address] Sodium [Moles/Vol] 137 mmol/L Normal 133-145 [facility] Comment on above: Performed By: #### L 100.0500, L500.2500 ####[facility] [address] [place], [address] Urea nitrogen [Mass/Vol] 19 mg/dL Normal 4-19 [facility] Comment on above: Performed By: #### L 100.0500, L500.2500 ####[facility] [address] [place], [address] Bedside Glucoseon 08-21-2024 FINGERSTICK GLU 254 mg/dL High 74-106 [facility] Comment on above: Result Comment: NITZA GEMENT OF PATIENT CARE PER NURSING PROTOCOL Performed By: #### L 501.080 ####[facility] [address] [place], [address] FINGERSTICK GLU 203 mg/dL High 74-106 [facility] Comment on above: Result Comment: NITZA GEMENT OF PATIENT CARE PER NURSING PROTOCOL Performed By: #### L 501.080 ####[facility] [address] [place], [address] FINGERSTICK GLU 162 mg/dL High 74-106 [facility] Comment on above: Result Comment: NITZA GEMENT OF PATIENT CARE PER NURSING PROTOCOL Performed By: #### L 501.080 ####[facility] [address] [place], [address] CBC-Complete Blood Cnt No Di ffon 08-21-2024 Erythrocyte distribution width (RBC) [Ratio] 15.0 % High 11.6-14.6 [facility] Comment on above: Performed By: #### L 100.0500, L500.2500 ####[facility] [address] [place], [address] Hematocrit (Bld) [Volume fraction] 31.6 % Low 40-54 [facility] Comment on above: Performed By: #### L 100.0500, L500.2500 ####[facility] [address] [place], [address] Hemoglobin (Bld) [Mass/Vol] 10.7 g/dL Low 13.0-16.5 [facility] Comment on above: Performed By: #### L 100.0500, L500.2500 ####[facility] [address] [place], [address] MCH (RBC) [Entitic mass] 31.0 pg Normal 27.0-32.0 [facility] Comment on above: Performed By: #### L 100.0500, L500.2500 ####[facility] [address] [place], [address] MCHC (RBC) [Mass/Vol] 33.9 g/dL Normal 32-36 [facility] Comment on above: Performed By: #### L 100.0500, L500.2500 ####[facility] [address] [place], [address] MCV (RBC) [Entitic vol] 91.6 fL Normal 80-94 [facility] Comment on above: Performed By: #### L 100.0500, L500.2500 ####[facility] [address] [place], [address] Platelet mean volume (Bld) [Entitic vol] 8.7 fL Normal 6.2-12.0 [facility] Comment on above: Performed By: #### L 100.0500, L500.2500 ####[facility] [address] [place], [address] Platelets (Bld) [#/Vol] 103 10*3/uL Low 150-450 [facility] Comment on above: Performed By: #### L 100.0500, L500.2500 ####[facility] [address] [place], [address] RBC (Bld) [#/Vol] 3.45 10*6/uL Low 4.6-6.2 [facility] Comment on above: Performed By: #### L 100.0500, L500.2500 ####[facility] [address] [place], [address] RDW SD 50.4 fl High 35.1-43.9 [facility] Comment on above: Performed By: #### L 100.0500, L500.2500 ####[facility] [address] [place], [address] WBC (Bld) [#/Vol] 5.9 10*3/uL Normal 4.4-11.0 [facility] Comment on above: Performed By: #### L 100.0500, L500.2500 ####[facility] [address] [place], [address] 12 Lead EKGon 08-20-[address]24 [address] [facility] Amorphous sediment detection in urine sediment by light microscopyOrdered By: Kaushik Brown on 08-20-2024 Amorphous sediment LM Ql (Urine sed) 1+ [facility] Basic Metabolic Profile (BMP )on 08-20-2024 BUN/CRE 10.5 RATIO Normal 10-20 [facility] Comment on above: Performed By: #### L 500.2500 ####[facility] [address] [place], [address] Calcium [Mass/Vol] 7.7 mg/dL Normal 7.6-11.0 [facility] Comment on above: Performed By: #### L 500.2500 ####[facility] [address] [place], [address] Chloride [Moles/Vol] 105 mmol/L Normal 98-108 [facility] Comment on above: Performed By: #### L 500.2500 ####[facility] [address] [place], [address] CO2 [Moles/Vol] 21.3 mmol/L Normal 21.0-32.0 [facility] Comment on above: Performed By: #### L 500.2500 ####[facility] [address] [place], [address] Creatinine [Mass/Vol] 1.89 mg/dL High 0.70-1.20 [facility] Comment on above: Performed By: #### L 500.2500 ####[facility] [address] [place], [address] ECRCL 46.74 ml/min Low 50-250 [facility] Comment on above: Performed By: #### L 500.2500 ####[facility] [address] [place], [address] GAP 9 Normal 5-15 [facility] Comment on above: Performed By: #### L 500.2500 ####[facility] [address] [place], [address] GFR/1.73 sq M.predicted among non-blacks MDRD (S/P/Bld) [Vol rate/Area] 37 mL/min/{1.73_m2} Low >60 [facility] Comment on above: Result Comment: mL/m in/1.73m2 CKD-EPI Creatinine Equation (2020) Performed By: #### L 500.2500 ####[facility] [address] [place], [address] Glucose [Mass/Vol] 212 mg/dL High 70-99 [facility] Comment on above: Performed By: #### L 500.2500 ####[facility] [address] [place], [address] Potassium [Moles/Vol] 4.6 mmol/L Normal 3.3-5.1 [facility] Comment on above: Performed By: #### L 500.2500 ####[facility] [address] [place], [address] Sodium [Moles/Vol] 135 mmol/L Normal 133-145 [facility] Comment on above: Performed By: #### L 500.2500 ####[facility] [address] [place], [address] Urea nitrogen [Mass/Vol] 20 mg/dL High 4-19 [facility] Comment on above: Performed By: #### L 500.2500 ####[facility] [address] [place], [address] Bedside Glucoseon 08-20-2024 FINGERSTICK GLU 203 mg/dL High 74-106 [facility] Comment on above: Result Comment: NITZA GEMENT OF PATIENT CARE PER NURSING PROTOCOL Performed By: #### L 501.080 ####[facility] [address] [place], [address] FINGERSTICK GLU 165 mg/dL High 74-106 [facility] Comment on above: Result Comment: NITZA GEMENT OF PATIENT CARE PER NURSING PROTOCOL Performed By: #### L 501.080 ####[facility] [address] [place], [address] FINGERSTICK GLU 181 mg/dL High 74-106 [facility] Comment on above: Result Comment: NITZA GEMENT OF PATIENT CARE PER NURSING PROTOCOL Performed By: #### L 501.080 ####[facility] [address] [place], [address] FINGERSTICK GLU 214 mg/dL High 74-106 [facility] Comment on above: Result Comment: NITZA GEMENT OF PATIENT CARE PER NURSING PROTOCOL Performed By: #### L 501.080 ####[facility] [address] [place], [address] Bilirubin Test strip Ql (U)O rdered By: Kaushik Brown on 08-20-2024 Bilirubin Ql (U) Negative Negative [facility] Blood cultureOrdered By: Juliano Brown on 08-20-2024 Bacteria identified Cx Nom (Bld) No growth in [address] [facility] CBC W/Diff, Automatedon - Absolute Lymph 0.55 X10 3/uL Low 0.83-4.51 [facility] Comment on above: Performed By: #### L 300.4310, L500.4050, L509.7001, M200.1000, L100.0100, L503.6005, L300.3900 ####[facility] [address] [place], [address] Absolute Neut 7.6 X10 3/uL Normal 2.0-7.7 [facility] Comment on above: Performed By: #### L 300.4310, L500.4050, L509.7001, M200.1000, L100.0100, L503.6005, L300.3900 ####[facility] [address] [place], [address] Basophils/100 WBC (Bld) 0.5 % Normal 0-1 [facility] Comment on above: Performed By: #### L 300.4310, L500.4050, L509.7001, M200.1000, L100.0100, L503.6005, L300.3900 ####[facility] [address] [place], [address] Eosinophils/100 WBC (Bld) 0.1 % Normal 0-5 [facility] Comment on above: Performed By: #### L 300.4310, L500.4050, L509.7001, M200.1000, L100.0100, L503.6005, L300.3900 ####[facility] [address] [place], [address] Erythrocyte distribution width (RBC) [Ratio] 14.6 % Normal 11.6-14.6 [facility] Comment on above: Performed By: #### L 300.4310, L500.4050, L509.7001, M200.1000, L100.0100, L503.6005, L300.3900 ####[facility] [address] [place], [address] Hematocrit (Bld) [Volume fraction] 37.4 % Low 40-54 [facility] Comment on above: Performed By: #### L 300.4310, L500.4050, L509.7001, M200.1000, L100.0100, L503.6005, L300.3900 ####[facility] [address] [place], [address] Hemoglobin (Bld) [Mass/Vol] 12.7 g/dL Low 13.0-16.5 [facility] Comment on above: Performed By: #### L 300.4310, L500.4050, L509.7001, M200.1000, L100.0100, L503.6005, L300.3900 ####[facility] [address] [place], [address] IG% 1.000 High 0.0-0.9 [facility] Comment on above: Result Comment: IG% - Immature Granulocytes (promyelocytes, myelocytes andmetamyelocytes) > 1% indicates that a LEFT SHIFT is Present. Performed By: #### L 300.4310, L500.4050, L509.7001, M200.1000, L100.0100, L503.6005, L300.3900 ####[facility] [address] [place], [address] Lymphocytes/100 WBC (Bld) 6.3 % Low 19-41 [facility] Comment on above: Performed By: #### L 300.4310, L500.4050, L509.7001, M200.1000, L100.0100, L503.6005, L300.3900 ####[facility] [address] [place], [address] MCH (RBC) [Entitic mass] 31.1 pg Normal 27.0-32.0 [facility] Comment on above: Performed By: #### L 300.4310, L500.4050, L509.7001, M200.1000, L100.0100, L503.6005, L300.3900 ####[facility] [address] [place], [address] MCHC (RBC) [Mass/Vol] 34.0 g/dL Normal 32-36 [facility] Comment on above: Performed By: #### L 300.4310, L500.4050, L509.7001, M200.1000, L100.0100, L503.6005, L300.3900 ####[facility] [address] [place], [address] MCV (RBC) [Entitic vol] 91.7 fL Normal 80-94 [facility] Comment on above: Performed By: #### L 300.4310, L500.4050, L509.7001, M200.1000, L100.0100, L503.6005, L300.3900 ####[facility] [address] [place], [address] Monocytes/100 WBC (Bld) 4.9 % Normal 0-10 [facility] Comment on above: Performed By: #### L 300.4310, L500.4050, L509.7001, M200.1000, L100.0100, L503.6005, L300.3900 ####[facility] [address] [place], [address] Neutrophils/100 WBC (Bld) 87.2 % High 47-70 [facility] Comment on above: Performed By: #### L 300.4310, L500.4050, L509.7001, M200.1000, L100.0100, L503.6005, L300.3900 ####[facility] [address] [place], [address] Nucleated RBC (Bld) [#/Vol] 0 10*3/uL Normal 0-5 [facility] Comment on above: Performed By: #### L 300.4310, L500.4050, L509.7001, M200.1000, L100.0100, L503.6005, L300.3900 ####[facility] [address] [place], [address] Platelet mean volume (Bld) [Entitic vol] 9.3 fL Normal 6.2-12.0 [facility] Comment on above: Performed By: #### L 300.4310, L500.4050, L509.7001, M200.1000, L100.0100, L503.6005, L300.3900 ####[facility] [address] [place], [address] Platelets (Bld) [#/Vol] 126 10*3/uL Low 150-450 [facility] Comment on above: Performed By: #### L 300.4310, L500.4050, L509.7001, M200.1000, L100.0100, L503.6005, L300.3900 ####[facility] [address] [place], [address] RBC (Bld) [#/Vol] 4.08 10*6/uL Low 4.6-6.2 [facility] Comment on above: Performed By: #### L 300.4310, L500.4050, L509.7001, M200.1000, L100.0100, L503.6005, L300.3900 ####[facility] [address] [place], [address] RDW SD 48.7 fl High 35.1-43.9 [facility] Comment on above: Performed By: #### L 300.4310, L500.4050, L509.7001, M200.1000, L100.0100, L503.6005, L300.3900 ####[facility] [address] [place], [address] WBC (Bld) [#/Vol] 8.7 10*3/uL Normal 4.4-11.0 [facility] Comment on above: Performed By: #### L 300.4310, L500.4050, L509.7001, M200.1000, L100.0100, L503.6005, L300.3900 ####[facility] [address] [place], [address] CTA Chest W/WO Contraston CTA Chest W/WO Contrast Normal [facility] Comprehensive Metabolic Prof ilon 08-20-2024 Albumin [Mass/Vol] 3.6 g/dL Normal 3.4-4.8 [facility] Comment on above: Performed By: #### L 300.4310, L500.4050, L509.7001, M200.1000, L100.0100, L503.6005, L300.3900 ####[facility] [address] [place], [address] Albumin/Globulin [Mass ratio] 1.1 {ratio} Normal 0.9-2.4 [facility] Comment on above: Performed By: #### L 300.4310, L500.4050, L509.7001, M200.1000, L100.0100, L503.6005, L300.3900 ####[facility] [address] [place], [address] ALK PHOS 78 U/L Normal 40-129 [facility] Comment on above: Performed By: #### L 300.4310, L500.4050, L509.7001, M200.1000, L100.0100, L503.6005, L300.3900 ####[facility] [address] [place], [address] ALT [Catalytic activity/Vol] 24 U/L Normal <=46 [facility] Comment on above: Performed By: #### L 300.4310, L500.4050, L509.7001, M200.1000, L100.0100, L503.6005, L300.3900 ####[facility] [address] [place], [address] AST [Catalytic activity/Vol] 29 U/L Normal <=37 [facility] Comment on above: Performed By: #### L 300.4310, L500.4050, L509.7001, M200.1000, L100.0100, L503.6005, L300.3900 ####[facility] [address] [place], [address] Bilirubin [Mass/Vol] 0.76 mg/dL Normal 0.00-1.30 [facility] Comment on above: Performed By: #### L 300.4310, L500.4050, L509.7001, M200.1000, L100.0100, L503.6005, L300.3900 ####[facility] [address] [place], [address] BUN/CRE 9.2 RATIO Low 10-20 [facility] Comment on above: Performed By: #### L 300.4310, L500.4050, L509.7001, M200.1000, L100.0100, L503.6005, L300.3900 ####[facility] [address] [place], [address] Calcium [Mass/Vol] 8.8 mg/dL Normal 7.6-11.0 [facility] Comment on above: Performed By: #### L 300.4310, L500.4050, L509.7001, M200.1000, L100.0100, L503.6005, L300.3900 ####[facility] [address] [place], [address] Chloride [Moles/Vol] 100 mmol/L Normal 98-108 [facility] Comment on above: Performed By: #### L 300.4310, L500.4050, L509.7001, M200.1000, L100.0100, L503.6005, L300.3900 ####[facility] [address] [place], [address] CO2 [Moles/Vol] 19.8 mmol/L Low 21.0-32.0 [facility] Comment on above: Performed By: #### L 300.4310, L500.4050, L509.7001, M200.1000, L100.0100, L503.6005, L300.3900 ####[facility] [address] [place], [address] Creatinine [Mass/Vol] 1.90 mg/dL High 0.70-1.20 [facility] Comment on above: Performed By: #### L 300.4310, L500.4050, L509.7001, M200.1000, L100.0100, L503.6005, L300.3900 ####[facility] [address] [place], [address] ECRCL 45.50 ml/min Low 50-250 [facility] Comment on above: Performed By: #### L 300.4310, L500.4050, L509.7001, M200.1000, L100.0100, L503.6005, L300.3900 ####[facility] [address] [place], [address] GAP 14 Normal 5-15 [facility] Comment on above: Performed By: #### L 300.4310, L500.4050, L509.7001, M200.1000, L100.0100, L503.6005, L300.3900 ####[facility] [address] [place], [address] GFR/1.73 sq M.predicted among non-blacks MDRD (S/P/Bld) [Vol rate/Area] 36 mL/min/{1.73_m2} Low >60 [facility] Comment on above: Result Comment: mL/m in/1.73m2 CKD-EPI Creatinine Equation (2020) Performed By: #### L 300.4310, L500.4050, L509.7001, M200.1000, L100.0100, L503.6005, L300.3900 ####[facility] [address] [place], [address] Globulin (S) [Mass/Vol] 3.4 g/dL Normal 2.2-4.2 [facility] Comment on above: Performed By: #### L 300.4310, L500.4050, L509.7001, M200.1000, L100.0100, L503.6005, L300.3900 ####[facility] [address] [place], [address] Glucose [Mass/Vol] 245 mg/dL High 70-99 [facility] Comment on above: Performed By: #### L 300.4310, L500.4050, L509.7001, M200.1000, L100.0100, L503.6005, L300.3900 ####[facility] [address] [place], [address] Potassium [Moles/Vol] 5.3 mmol/L High 3.3-5.1 [facility] Comment on above: Performed By: #### L 300.4310, L500.4050, L509.7001, M200.1000, L100.0100, L503.6005, L300.3900 ####[facility] [address] [place], [address] Sodium [Moles/Vol] 133 mmol/L Normal 133-145 [facility] Comment on above: Performed By: #### L 300.4310, L500.4050, L509.7001, M200.1000, L100.0100, L503.6005, L300.3900 ####[facility] [address] [place], [address] T PROT 7.0 g/dL Normal 5.9-8.4 [facility] Comment on above: Performed By: #### L 300.4310, L500.4050, L509.7001, M200.1000, L100.0100, L503.6005, L300.3900 ####[facility] [address] [place], [address] Urea nitrogen [Mass/Vol] 17 mg/dL Normal 4-19 [facility] Comment on above: Performed By: #### L 300.4310, L500.4050, L509.7001, M200.1000, L100.0100, L503.6005, L300.3900 ####[facility] [address] [place], [address] Consultation - Intensiviston 04-19-2025 Consultation - Timber Skidder Normal [facility] Emergency Department Summary on 08-20-2024 Emergency [address] Normal [facility] Epithelial cells.squamous LM Ql (Urine sed)Ordered By: Kaushik Brown on 08-20-2024 Epithelial cells.squamous LM.HPF (Urine sed) [#/Area] 0 /[HPF] 0-5 [facility] Glucose Ql (U)Ordered By: Dede Brown on 08-20-2024 Glucose (U) [Mass/Vol] 1000 mg/dL High Normal [facility] H AND P Exam - Hospitaliston 08-20-2024 H&P Exam - Hospitalist Normal [facility] Influenza virus A and B and SARS-CoV-2 (COVID-19) and Respiratory syncytial virus RNAOrdered By: Kaushik Brown on 08-20-2024 SARS-CoV-2 (COVID-19) RNA LIV+probe Ql (Unsp spec) [facility] Ketones Test strip Ql (U)Ord ered By: Kaushik Brown on 08-20-2024 Ketones Ql (U) 5 mg/dl High Negative [facility] Kidney and Bladderon 025 Kidney and Bladder Normal [facility] L509.7001on 08-20-2024 Procalcitonin 0.32 ng/mL High <=0.10 [facility] Comment on above: Result Comment: Inte rpretation:<0.10-0.25 ng/mL: Antibiotic therapy discouraged. Bacterialinfection unlikely.0.25-0.50 ng/mL: Antibiotic therapy encouraged. Bacterialinfection possible.>0.50 ng/mL: Antibiotic therapy strongly encouraged.Suggestive of presence of bacterial infection.PCT should always be interpreted in the clinical context ofthe patient. Therefore, clinicians should use the PCTresults in conjunction with other laboratory findings andclinical signs of the patient. Performed By: #### L 300.4310, L500.4050, L509.7001, M200.1000, L100.0100, L503.6005, L300.3900 ####[facility] [address] [place], [address] Lactic Acidon 08-20-2024 Lactate [Moles/Vol] 1.4 mmol/L Normal 0.0-2.0 [facility] Comment on above: Order Comment: Y Performed By: #### L 503.6005 ####[facility] [address] [place], [place], [address] Lactate [Moles/Vol] 3.4 mmol/L Invalid Interpretation Code 0.0-2.0 [facility] Comment on above: Order Comment: Y Result Comment: Crit ical Result(s) Called at 0048: by: ALANNA PEREZ??Results read back by same. Performed By: #### L 300.4310, L500.4050, L509.7001, M200.1000, L100.0100, L503.6005, L300.3900 ####[facility] [address] [place], [address] Lactic acid measurementOrder ed By: Kaushik Sykes on 08-20-2024 Lactate [Moles/Vol] 1.4 mmol/L 0.0-2.0 [facility] M100.678on 08-20-2024 M100.678 SARS-CoV-2 (COVID 19 ) Negative INFLUENZA A Negative INFLUENZA B Negative RSV PCR Negative Normal [facility] Comment on above: Performed By: #### M 100.2200, M100.678, L400.0001 ####[facility] [address] [place], [address] Microscopic analysis of urin e for red blood cells (RBC)Ordered By: Kaushik Brown on 08-20-2024 Microscopic analysis of urine for red blood cells (RBC) > 100 SEEN /hpf 0-5 [facility] Urine RBC > 100 SEEN /hpf 0-5 [facility] Mucus LM Ql (Urine sed)Order ed By: Kaushik Brown on 08-20-2024 Mucus Ql (Urine sed) RARE /hpf [facility] Nitrite Test strip Ql (U)Ord ered By: Kaushik Brown on 08-20-2024 Nitrite Ql (U) Negative Negative [facility] Partial Thromboplast Timeon 08-20-2024 aPTT Coag (Bld) [Time] 32.3 s Normal 24.1-36.2 [facility] Comment on above: Performed By: #### L 300.4310, L500.4050, L509.7001, M200.1000, L100.0100, L503.6005, L300.3900 ####[facility] [address] [place], [address] Protein Test strip Ql (U)Ord ered By: Kaushik Brown on 08-20-2024 Protein Ql (U) 100 mg/dl High Negative [facility] Prothrombin Time w/INRon INR Coag (PPP) [Relative time] 1.6 {INR} Normal [facility] Comment on above: Performed By: #### L 300.4310, L500.4050, L509.7001, M200.1000, L100.0100, L503.6005, L300.3900 ####[facility] [address] [place], [address] PT Coag (PPP) [Time] 19.2 s High 11.7-14.9 [facility] Comment on above: Performed By: #### L 300.4310, L500.4050, L509.7001, M200.1000, L100.0100, L503.6005, L300.3900 ####[facility] [address] [place], [address] Squamous epithelial cells de tection in urine sediment by light microscopyOrdered By: Kaushik Brown on 08-20-2024 Epithelial cells.squamous LM Ql (Urine sed) 0-5 SEEN /hpf 0-5 [facility] Urinalysis, Completeon 08-20 AMORPHOUS 1+ Normal [facility] Comment on above: Order Comment: COLOR OF URINE MAY AFFECT DIPSTICK RESULTS.CATHETER SPECIMEN Performed By: #### M 100.2200, M100.678, L400.0001 ####[facility] [address] [place], [address] Mucus Ql (Urine sed) RARE Normal [facility] Comment on above: Order Comment: COLOR OF URINE MAY AFFECT DIPSTICK RESULTS.CATHETER SPECIMEN Performed By: #### M 100.2200, M100.678, L400.0001 ####[facility] [address] [place], [address] BACTERIA 2+ /hpf Normal None Seen [facility] Comment on above: Order Comment: COLOR OF URINE MAY AFFECT DIPSTICK RESULTS.CATHETER SPECIMEN Performed By: #### M 100.2200, M100.678, L400.0001 ####[facility] [address] [place], [address] EPI,SQUAMOUS 0-5 SEEN Normal 0-5 [facility] Comment on above: Order Comment: COLOR OF URINE MAY AFFECT DIPSTICK RESULTS.CATHETER SPECIMEN Performed By: #### M 100.2200, M100.678, L400.0001 ####[facility] [address] [place], [address] RBC > 100 SEEN Normal 0-5 [facility] Comment on above: Order Comment: COLOR OF URINE MAY AFFECT DIPSTICK RESULTS.CATHETER SPECIMEN Performed By: #### M 100.2200, M100.678, L400.0001 ####[facility] [address] [place], [address] WBC >100 SEEN Normal 0-5 [facility] Comment on above: Order Comment: COLOR OF URINE MAY AFFECT DIPSTICK RESULTS.CATHETER SPECIMEN Performed By: #### M 100.2200, M100.678, L400.0001 ####[facility] [address] [place], [address] BILIRUBIN URINE Negative Normal Negative [facility] Comment on above: Order Comment: COLOR OF URINE MAY AFFECT DIPSTICK RESULTS.CATHETER SPECIMEN Performed By: #### M 100.2200, M100.678, L400.0001 ####[facility] [address] [place], [address] Clarity (U) Cloudy Normal Clear [facility] Comment on above: Order Comment: COLOR OF URINE MAY AFFECT DIPSTICK RESULTS.CATHETER SPECIMEN Performed By: #### M 100.2200, M100.678, L400.0001 ####[facility] [address] [place], [address] Color (U) Stephanie Normal Yellow [facility] Comment on above: Order Comment: COLOR OF URINE MAY AFFECT DIPSTICK RESULTS.CATHETER SPECIMEN Performed By: #### M 100.2200, M100.678, L400.0001 ####[facility] [address] [place], [address] GLUCOSE, UR 1000 mg/dl Abnormal Normal [facility] Comment on above: Order Comment: COLOR OF URINE MAY AFFECT DIPSTICK RESULTS.CATHETER SPECIMEN Performed By: #### M 100.2200, M100.678, L400.0001 ####[facility] [address] [place], [address] KETONE UR 5 mg/dl Abnormal Negative [facility] Comment on above: Order Comment: COLOR OF URINE MAY AFFECT DIPSTICK RESULTS.CATHETER SPECIMEN Performed By: #### M 100.2200, M100.678, L400.0001 ####[facility] [address] [place], [address] LEUK ESTERASE 500 /ul Abnormal Negative [facility] Comment on above: Order Comment: COLOR OF URINE MAY AFFECT DIPSTICK RESULTS.CATHETER SPECIMEN Performed By: #### M 100.2200, M100.678, L400.0001 ####[facility] [address] [place], [address] Nitrite Ql (U) Negative Normal Negative [facility] Comment on above: Order Comment: COLOR OF URINE MAY AFFECT DIPSTICK RESULTS.CATHETER SPECIMEN Performed By: #### M 100.2200, M100.678, L400.0001 ####[facility] [address] [place], [address] OCCULT BLOOD-UR 250 /ul Abnormal Negative [facility] Comment on above: Order Comment: COLOR OF URINE MAY AFFECT DIPSTICK RESULTS.CATHETER SPECIMEN Performed By: #### M 100.2200, M100.678, L400.0001 ####[facility] [address] [place], [address] pH UR 6.0 Normal 5.0 - 8.0 [facility] Comment on above: Order Comment: COLOR OF URINE MAY AFFECT DIPSTICK RESULTS.CATHETER SPECIMEN Performed By: #### M 100.2200, M100.678, L400.0001 ####[facility] [address] [place], [address] PROT DIPSTX 100 mg/dl Abnormal Negative [facility] Comment on above: Order Comment: COLOR OF URINE MAY AFFECT DIPSTICK RESULTS.CATHETER SPECIMEN Performed By: #### M 100.2200, M100.678, L400.0001 ####[facility] [address] [place], [address] SP.GR. DIPSTX 1.010 Normal 1.002-1.030 [facility] Comment on above: Order Comment: COLOR OF URINE MAY AFFECT DIPSTICK RESULTS.CATHETER SPECIMEN Performed By: #### M 100.2200, M100.678, L400.0001 ####[facility] [address] [place], [address] UROBILI Normal Normal Normal [facility] Comment on above: Order Comment: COLOR OF URINE MAY AFFECT DIPSTICK RESULTS.CATHETER SPECIMEN Performed By: #### M 100.2200, M100.678, L400.0001 ####[facility] [address] [place], [address] Urine blood detectionOrdered By: Kaushik Brown on 08-20-2024 Urine Occult Blood 250 /ul High Negative [facility] Urine clarityOrdered By: Juliano Brown on 08-20-2024 Clarity (U) Cloudy Clear [facility] Urine color determinationOrd ered By: Kaushik Brown on 08-20-2024 Color (U) Stephanie Yellow [facility] Urine cultureOrdered By: Juliano Brown on 08-20-2024 Bacteria identified Cx Nom (U) Yeast, not Callie albicans Abnormal [facility] Bacteria identified Cx Nom (U) Positive Abnormal [facility] Urine glucose detectionOrder ed By: Kaushik Brown on 08-20-2024 Glucose Ql (U) 1000 mg/dl High Normal [facility] Urine leukocyte esterase det ection by dipstickOrdered By: Kaushik Brown on 08-20-2024 Leukocyte esterase Test strip Ql (U) 500 /ul High Negative [facility] Urine pHOrdered By: Kaushik morales on 08-20-2024 pH (U) 6.0 [pH] 5.0 - 8.0 [facility] Urine sediment bacteria coun t by microscopy (number/high power field)Ordered By: Kaushik Brown on 08-20-2024 Bacteria LM.HPF (Urine sed) [#/Area] 2 /[HPF] None Seen [facility] Urine specific gravity measu rementOrdered By: Kaushik Brown on 08-20-2024 Specific gravity (U) [Rel density] 1.010 1.002-1.030 [facility] Urine urobilinogen measureme ntOrdered By: Kaushik Brown on 08-20-2024 Urobilinogen Ql (U) Normal mg/dl Normal [facility] Urobilinogen Ql (U)Ordered B y: Kaushik Brown on 08-20-2024 Urine Urobilinogen Normal mg/dl Normal [facility] White blood cell countOrdere d By: Kaushik Brown on 08-20-2024 Urine WBC >100 SEEN /hpf 0-5 [facility] White blood cell count >100 SEEN /hpf 0-5 [facility] Absolute neutrophil countOrd ered By: Kaushik Brown on 08-19-2024 Neutrophils (Bld) [#/Vol] 7.6 10*3/uL 2.0-7.7 [facility] Activated partial thrombopla stin time (aPTT) in platelet poor plasma by coagulation aOrdered By: Kaushik Brown on 08-19-2024 aPTT Coag (PPP) [Time] 32.3 s 24.1-36.2 [facility] Anion gap in Serum or Plasma Ordered By: Kaushik Brown on 08-19-2024 Anion gap [Moles/Vol] 14 mmol/L 5-[facility] BUN/creatinine ratioOrdered By: Kaushik Brown on 08-19-2024 Urea nitrogen/Creatinine [Mass ratio] 9.2 mg/mg Low 10-20 [facility] Basophil percentageOrdered B y: Kaushik Brown on 08-19-2024 Basophils/100 WBC (Bld) 0.5 % 0-1 [facility] Bilirubin, totalOrdered By: Kaushik Brown on 08-19-2024 Bilirubin [Mass/Vol] 0.76 mg/dL 0.00-1.30 [facility] Blood cultureOrdered By: Juliano Brown on 08-19-2024 Bacteria identified Cx Nom (Bld) No growth in [address] [facility] Carbon dioxide, total [Moles /volume] in Central venous bloodOrdered By: Kaushik Brown on 08-19-2024 CO2 [Moles/Vol] 19.8 mmol/L Low 21.0-32.0 [facility] Chloride assayOrdered By: Dede Brown on 08-19-2024 Chloride [Moles/Vol] 100 mmol/L 98-108 [facility] Eosinophil percentageOrdered By: Kaushik Brown on 08-19-2024 Eosinophils/100 WBC (Bld) 0.1 % 0-5 [facility] Erythrocyte distribution wid th (RBC) [Ratio]Ordered By: Kaushik Brown on 08-19-2024 Erythrocyte distribution width (RBC) [Entitic vol] 48.7 fL High 35.1-43.9 [facility] Erythrocyte distribution wid th ratioOrdered By: Kaushik Brown on 08-19-2024 Erythrocyte distribution width (RBC) [Ratio] 14.6 % 11.6-14.6 [facility] Estimation of creatinine joy aranceOrdered By: Kaushik Brown on 08-19-2024 Estimated Creatinine Clearance Calc 45.50 ml/min Low 50-250 [facility] GFR/1.73 sq M.predicted [place] g non-blacks MDRD (S/P/Bld) [Vol rate/Area]Ordered By: Kaushik Brown on 08-19-2024 Estimated GFR (MDRD) Non-Af Amer 36 Low >60 [facility] Comment on above: mL/min/1.73m2 CKD-EP I Creatinine Equation (2020) Hematocrit Auto (Bld) [Volum e fraction]Ordered By: Kaushik Brown on 08-19-2024 Hematocrit (Bld) [Volume fraction] 37.4 % Low 40-54 [facility] Hemoglobin measurementOrdere d By: Kaushik Brown on 08-19-2024 Hemoglobin (Bld) [Mass/Vol] 12.7 g/dL Low 13.0-16.5 [facility] Immature granulocytes/100 WB C Auto (Bld)Ordered By: Kaushik Brown on 08-19-2024 Immature granulocytes/100 WBC (Bld) 1.000 % High 0.0-0.9 [facility] Comment on above: IG% - Immature Granu locytes (promyelocytes, myelocytes and metamyelocytes) > 1% indicates that a LEFT SHIFT is Present. International normalized rat io (INR) calculationOrdered By: Kaushik Brown on 08-19-2024 INR Coag (Bld) [Relative time] 1.6 {INR} [facility] Laboratory - Chemistry and C hemistry - challengeOrdered By: Kaushik Brown on 08-19-2024 AST [Catalytic activity/Vol] 29 U/L <38 [facility] Lactic acid measurementOrder ed By: Kaushik Brown on 08-19-2024 Lactate [Moles/Vol] 3.4 mmol/L High 0.0-2.0 [facility] Comment on above: Critical Result(s) C alled at 0048: by: NBURNS TO LSPARR Results read back by same. Lymphocytes Auto (Unsp spec) [#/Vol]Ordered By: Kaushik Brown on 08-19-2024 Lymphocytes (Bld) [#/Vol] 0.55 10*3/uL Low 0.83-4.51 [facility] Lymphocytes/100 WBC Auto (Un sp spec)Ordered By: Kaushik Brown on 08-19-2024 Lymphocytes/100 WBC (Bld) 6.3 % Low 19-41 [facility] MCV (mean corpuscular volume ) determinationOrdered By: Kaushik Brown on 08-19-2024 MCV (RBC) [Entitic vol] 91.7 fL 80-94 [facility] Mean corpuscular hemoglobin (MCH) determinationOrdered By: Kaushik Brown on 08-19-2024 MCH (RBC) [Entitic mass] 31.1 pg 27.0-32.0 [facility] Mean corpuscular hemoglobin concentration (MCHC) determinationOrdered By: Kaushik Brown on 08-19-2024 MCHC (RBC) [Mass/Vol] 34.0 g/dL 32-36 [facility] Mean platelet volume determi nationOrdered By: Kaushik Brown on 08-19-2024 Platelet mean volume (Bld) [Entitic vol] 9.3 fL 6.2-12.0 [facility] Monocyte percentageOrdered B y: Kaushik Brown on 08-19-2024 Monocytes/100 WBC (Bld) 4.9 % 0-10 [facility] Neutrophil percentageOrdered By: Kaushik Brown on 08-19-2024 Neutrophils/100 WBC (Bld) 87.2 % High 47-70 [facility] Nucleated red blood cell per centageOrdered By: Kaushik Brown on 08-19-2024 Nucleated RBC/100 WBC (Bld) [Ratio] 0 % 0-5 [facility] Platelet countOrdered By: Dede Brown on 08-19-2024 Platelets (Bld) [#/Vol] 126 10*3/uL Low 150-450 [facility] Potassium (Unsp spec) [Mass/ Vol]Ordered By: Kaushik Brown on 08-19-2024 Potassium [Moles/Vol] 5.3 mmol/L High 3.3-5.1 [facility] Procalcitonin IA [Mass/Vol]O rdered By: Kaushik Brown on 08-19-2024 Procalcitonin 0.32 ng/mL High <0.11 [facility] Comment on above: Interpretation:<0.10 -0.25 ng/mL: [...] Procalcitonin IA [Mass/Vol] 0.32 ng/mL High <0.11 [facility] Comment on above: Interpretation:<0.10 -0.25 ng/mL: [...] Coag (PPP) [Time] 19.2 s High 11.7-14.9 [facility] RBC Auto (Bld) [#/Vol]Ordere d By: Kaushik Brown on 08-19-2024 RBC (Bld) [#/Vol] 4.08 10*6/uL Low 4.6-6.2 [facility] Serum creatinine measurement (mass/volume)Ordered By: Kaushki Brown on 08-19-2024 Creatinine [Mass/Vol] 1.90 mg/dL High 0.70-1.20 [facility] Serum globulin measurementOr dered By: Kaushik Brown on 08-19-2024 Globulin (S) [Mass/Vol] 3.4 g/dL 2.2-4.2 [facility] Serum glucose measurement (m ass/volume)Ordered By: Kaushik Brown on 08-19-2024 Glucose [Mass/Vol] 245 mg/dL High 70-99 [facility] Serum or plasma alanine wylie otransferase (ALT) measurementOrdered By: Kaushik Brown on 08-19-2024 ALT [Catalytic activity/Vol] 24 U/L <47 [facility] Serum or plasma albumin maricel urement (mass/volume)Ordered By: Kaushik Brown on 08-19-2024 Albumin [Mass/Vol] 3.6 g/dL 3.4-4.8 [facility] Serum or plasma albumin/glob ulin mass ratioOrdered By: Kaushik Brown on 08-19-2024 Albumin/Globulin [Mass ratio] 1.1 {ratio} 0.9-2.4 [facility] Serum or plasma alkaline ivan sphatase measurementOrdered By: Kaushik Brown on 08-19-2024 ALP [Catalytic activity/Vol] 78 U/L 40-129 [facility] Serum or plasma calcium maricel urement (mass/volume)Ordered By: Kaushik Brown on 08-19-2024 Calcium [Mass/Vol] 8.8 mg/dL 7.6-11.0 [facility] Serum or plasma urea nitroge n measurement (mass/volume)Ordered By: Kaushik Brown on 08-19-2024 Urea nitrogen [Mass/Vol] 17 mg/dL 4-19 [facility] Sodium levelOrdered By: Bill Brown on 08-19-2024 Sodium [Moles/Vol] 133 mmol/L 133-145 [facility] Total proteinOrdered By: Juliano Brown on 08-19-2024 Protein [Mass/Vol] 7.0 g/dL 5.9-8.4 [facility] White blood cell (WBC) count Ordered By: Kaushik Brown on 08-19-2024 WBC (Bld) [#/Vol] 8.7 10*3/uL 4.4-11.0 [facility] aPTT Coag (PPP) [Time]Ordere d By: Kaushik Brown on 08-19-2024 aPTT Coag (Bld) [Time] 32.3 s 24.1-36.2 [facility] Basic Metabolic Profile (BMP )on 03-18-2024 BUN/CRE 13.4 RATIO Normal 10-20 [facility] Comment on above: Performed By: #### L 100.0100, L500.2500, L501.6710, L101.9900 ####[facility] [address] [place], [address] CA,Total 9.2 mg/dL Normal 8.5-10.1 [facility] Comment on above: Performed By: #### L 100.0100, L500.2500, L501.6710, L101.9900 ####[facility] [address] [place], [address] Chloride [Moles/Vol] 107 mmol/L Normal 98-107 [facility] Comment on above: Performed By: #### L 100.0100, L500.2500, L501.6710, L101.9900 ####[facility] [address] [place], [address] CO2 [Moles/Vol] 24.0 mmol/L Normal 21.0-32.0 [facility] Comment on above: Performed By: #### L 100.0100, L500.2500, L501.6710, L101.9900 ####[facility] [address] [place], [address] Creatinine [Mass/Vol] 1.87 mg/dL High 0.70-1.30 [facility] Comment on above: Result Comment: The validity of the calculated GFR GFRAA in patients over70 years has not been determined. Clinical correlation isessential. Performed By: #### L 100.0100, L500.2500, L501.6710, L101.9900 ####[facility] [address] [place], [address] ECRCL 49.07 ml/min Normal [facility] Comment on above: Performed By: #### L 100.0100, L500.2500, L501.6710, L101.9900 ####[facility] [address] [place], [address] EST GFR - AA 46 mL/min Low >60 [facility] Comment on above: Result Comment: Afri can Niuean GFR Calc Performed By: #### L 100.0100, L500.2500, L501.6710, L101.9900 ####[facility] [address] [place], [address] GAP 5 Normal 5-15 [facility] Comment on above: Performed By: #### L 100.0100, L500.2500, L501.6710, L101.9900 ####[facility] [address] [place], [address] GFR/1.73 sq M.predicted among non-blacks MDRD (S/P/Bld) [Vol rate/Area] 38 mL/min/{1.73_m2} Low >60 [facility] Comment on above: Result Comment: Non- GFR Calc Performed By: #### L 100.0100, L500.2500, L501.6710, L101.9900 ####[facility] [address] [place], [address] Glucose [Mass/Vol] 199 mg/dL High 74-106 [facility] Comment on above: Result Comment: Fast ing Glucose result greater than or equal to 126 mg/dLsuggests DIABETES MELLITUS per A.D.A. criteria. Performed By: #### L 100.0100, L500.2500, L501.6710, L101.9900 ####[facility] [address] [place], [address] Potassium [Moles/Vol] 4.8 mmol/L Normal 3.5-5.1 [facility] Comment on above: Performed By: #### L 100.0100, L500.2500, L501.6710, L101.9900 ####[facility] [address] [place], [address] Sodium [Moles/Vol] 136 mmol/L Normal 136-145 [facility] Comment on above: Performed By: #### L 100.0100, L500.2500, L501.6710, L101.9900 ####[facility] [address] [place], [address] Urea nitrogen [Mass/Vol] 25 mg/dL High 7-18 [facility] Comment on above: Performed By: #### L 100.0100, L500.2500, L501.6710, L101.9900 ####[facility] [address] [place], [address] CBC W/Diff, Automatedon 11-05 08-2023 Absolute Lymph 1.47 X10 3/uL Normal 0.83-4.51 [facility] Comment on above: Performed By: #### L 100.0100, L500.2500, L501.6710, L101.9900 ####[facility] [address] [place], [address] Absolute Neut 4.7 X10 3/uL Normal 2.0-7.7 [facility] Comment on above: Performed By: #### L 100.0100, L500.2500, L501.6710, L101.9900 ####[facility] [address] [place], [address] Basophils/100 WBC (Bld) 0.6 % Normal 0-1 [facility] Comment on above: Performed By: #### L 100.0100, L500.2500, L501.6710, L101.9900 ####[facility] [address] [place], [address] Eosinophils/100 WBC (Bld) 2.3 % Normal 0-5 [facility] Comment on above: Performed By: #### L 100.0100, L500.2500, L501.6710, L101.9900 ####[facility] [address] [place], [address] Erythrocyte distribution width (RBC) [Ratio] 15.0 % High 11.6-14.6 [facility] Comment on above: Performed By: #### L 100.0100, L500.2500, L501.6710, L101.9900 ####[facility] [address] [place], [address] Hematocrit (Bld) [Volume fraction] 41.8 % Normal 40-54 [facility] Comment on above: Performed By: #### L 100.0100, L500.2500, L501.6710, L101.9900 ####[facility] [address] [place], [address] Hemoglobin (Bld) [Mass/Vol] 13.7 g/dL Normal 13.0-16.5 [facility] Comment on above: Performed By: #### L 100.0100, L500.2500, L501.6710, L101.9900 ####[facility] [address] [place], [address] IG% 1.000 High 0.0-0.9 [facility] Comment on above: Result Comment: IG% - Immature Granulocytes (promyelocytes, myelocytes andmetamyelocytes) > 1% indicates that a LEFT SHIFT is Present. Performed By: #### L 100.0100, L500.2500, L501.6710, L101.9900 ####[facility] [address] [place], [address] Lymphocytes/100 WBC (Bld) 21.2 % Normal 19-41 [facility] Comment on above: Performed By: #### L 100.0100, L500.2500, L501.6710, L101.9900 ####[facility] [address] [place], [address] MCH (RBC) [Entitic mass] 31.6 pg Normal 27.0-32.0 [facility] Comment on above: Performed By: #### L 100.0100, L500.2500, L501.6710, L101.9900 ####[facility] [address] [place], [address] MCHC (RBC) [Mass/Vol] 32.8 g/dL Normal 32-36 [facility] Comment on above: Performed By: #### L 100.0100, L500.2500, L501.6710, L101.9900 ####[facility] [address] [place], [address] MCV (RBC) [Entitic vol] 96.3 fL High 80-94 [facility] Comment on above: Performed By: #### L 100.0100, L500.2500, L501.6710, L101.9900 ####[facility] [address] [place], [address] Monocytes/100 WBC (Bld) 7.5 % Normal 0-10 [facility] Comment on above: Performed By: #### L 100.0100, L500.2500, L501.6710, L101.9900 ####[facility] [address] [place], [address] Neutrophils/100 WBC (Bld) 67.4 % Normal 47-70 [facility] Comment on above: Performed By: #### L 100.0100, L500.2500, L501.6710, L101.9900 ####[facility] [address] [place], [address] Nucleated RBC (Bld) [#/Vol] 0 10*3/uL Normal 0-5 [facility] Comment on above: Performed By: #### L 100.0100, L500.2500, L501.6710, L101.9900 ####[facility] [address] [place], [address] Platelet mean volume (Bld) [Entitic vol] 9.4 fL Normal 6.2-12.0 [facility] Comment on above: Performed By: #### L 100.0100, L500.2500, L501.6710, L101.9900 ####[facility] [address] [place], [address] Platelets (Bld) [#/Vol] 112 10*3/uL Low 150-450 [facility] Comment on above: Performed By: #### L 100.0100, L500.2500, L501.6710, L101.9900 ####[facility] [address] [place], [address] RBC (Bld) [#/Vol] 4.34 10*6/uL Low 4.6-6.2 [facility] Comment on above: Performed By: #### L 100.0100, L500.2500, L501.6710, L101.9900 ####[facility] [address] [place], [address] RDW SD 53.0 fl High 35.1-43.9 [facility] Comment on above: Performed By: #### L 100.0100, L500.2500, L501.6710, L101.9900 ####[facility] [address] [place], [address] WBC (Bld) [#/Vol] 6.9 10*3/uL Normal 4.4-11.0 [facility] Comment on above: Performed By: #### L 100.0100, L500.2500, L501.6710, L101.9900 ####[facility] [address] [place], [address] CRPon 03-18-2024 C-REACTIVE PROT 26.00 mg/L High 0.0-3.0 [facility] Comment on above: Result Comment: C-Re active Protein (CRP) provides useful information for thediagnosis, therapy and monitoring of inflammatory processesand associated diseases. For the evaluation of Relative Riskfor Cardiovascular Disease, a High Sensitivity CRP (HSCRP)should be ordered. Performed By: #### L 100.0100, L500.2500, L501.6710, L101.9900 ####[facility] [address] [place], [address] Chest PA and Lateralon 03-18 Chest PA and Lateral Normal [facility] Emergency Department Summary on 03-18-2024 Emergency Department Summary Normal [facility] Erythrocyte Sed Rateon 03-18 SED RATE 24 mm/hr High 0-20 [facility] Comment on above: Performed By: #### L 100.0100, L500.2500, L501.6710, L101.9900 ####[facility] [address] [place], [address] Foot min 3 Viewson 4 Foot min [address] [facility] Absolute lymphocyte countOrd ered By: Elicia Blair on 11-06-2022 Lymphocytes Auto (Unsp spec) [#/Vol] 1.15 10*3/uL 0.83-4.51 [facility] Basophil percentageOrdered B y: Elicia Blair on 11-06-2022 Basophils/100 WBC (Bld) 0.6 % 0-1 [facility] Chloride [Moles/Vol] 104 mmol/L 98-107 [facility] Eosinophils/100 WBC (Bld) 2.7 % 0-5 [facility] Glucose [Mass/Vol] 310 mg/dL 74-106 [facility] Comment on above: Glucose result great er than or equal to 200 mg/dLsuggests DIABETES MELLITUS per A.D.A. criteria. Neutrophils (Bld) [#/Vol] 4.4 10*3/uL 2.0-7.7 [facility] Neutrophils/100 WBC (Bld) 70.7 % 47-70 [facility] Potassium [Moles/Vol] 4.2 mmol/L 3.5-5.1 [facility] Sodium [Moles/Vol] 137 mmol/L 136-145 [facility] WBC (Bld) [#/Vol] 6.3 10*3/uL 4.4-11.0 [facility] Blood erythrocytes count (nu mber/volume)Ordered By: Elicia Blair on 11-06-2022 RBC (Bld) [#/Vol] 4.45 10*6/uL 4.6-6.2 [facility] Blood hemoglobin measurement (mass/volume)Ordered By: Elicia Blair on 11-06-2022 Hemoglobin (Bld) [Mass/Vol] 13.8 g/dL 13.0-16.5 [facility] Blood lymphocytes/100 leukoc ytesOrdered By: Elicia Blair on 11-06-2022 Lymphocytes/100 WBC (Bld) 18.3 % 19-41 [facility] Blood monocytes/100 leukocyt esOrdered By: Elicia Blair on 11-06-2022 Monocytes/100 WBC (Bld) 6.4 % 0-10 [facility] Blood platelet mean volumeOr dered By: Elicia Blair on 11-06-2022 Platelet mean volume (Bld) [Entitic vol] 8.8 fL 6.2-12.0 [facility] Determination of erythrocyte mean corpuscular volume (MCV)Ordered By: Elicia Blair on 11-06-2022 MCV (RBC) [Entitic vol] 94.6 fL 80-94 [facility] Hematocrit Auto (Bld) [Volum e fraction]Ordered By: Elicia Blair on 11-06-2022 Hematocrit (Bld) [Volume fraction] 42.1 % 40-54 [facility] Laboratory - Chemistry and C hemistry - challengeOrdered By: Elicia Blair on 11-06-2022 CO2 [Moles/Vol] 29.0 mmol/L 21.0-32.0 [facility] Urea nitrogen/Creatinine [Mass ratio] 11.6 mg/mg 10-20 [facility] - Hematology and Cell countsOrdered By: Elicia Blair on 11-06-2022 Erythrocyte distribution width (RBC) [Entitic vol] 52.6 fL 35.1-43.9 [facility] Erythrocyte distribution width (RBC) [Ratio] 15.2 % 11.6-14.6 [facility] Immature granulocytes/100 WBC (Bld) 1.300 % 0.0-0.9 [facility] Comment on above: IG% - Immature Granu locytes (promyelocytes, myelocytes and metamyelocytes) > 1% indicates that a LEFT SHIFT is Present. MCH (RBC) [Entitic mass] 31.0 pg 27.0-32.0 [facility] Nucleated RBC/100 WBC (Bld) [Ratio] 0 % 0-5 [facility] MCHC Auto (RBC) [Mass/Vol]Or dered By: Elicia Blair on 11-06-2022 MCHC (RBC) [Mass/Vol] 32.8 g/dL 32-36 [facility] No Panel InformationOrdered By: Elicia Blair on 11-06-2022 Estimated Creatinine Clearance Calc 47.67 ml/min [facility] Estimated GFR (MDRD) Amer 65 mL/min >60 [facility] Comment on above: GFR Calc Estimated GFR (MDRD) Non-Af Amer 54 mL/min >60 [facility] Comment on above: Non- GFR Calc Platelets bldOrdered By: Jarrod Blair on 11-06-2022 Platelets (Bld) [#/Vol] 106 10*3/uL 150-450 [facility] Serum or plasma calcium maricel urement (mass/volume)Ordered By: Elicia Blair on 11-06-2022 Calcium [Mass/Vol] 8.6 mg/dL 8.5-10.1 [facility] Serum or plasma creatinine m easurement (mass/volume)Ordered By: Elicia Blair on 11-06-2022 Creatinine [Mass/Vol] 1.38 mg/dL 0.70-1.30 [facility] Comment on above: The validity of the calculated GFR & GFRAA in patients over 70 years has not been determined. Clinical correlation is essential. Serum or plasma urea nitroge n measurement (mass/volume)Ordered By: Elicia Blair on 11-06-2022 Urea nitrogen [Mass/Vol] 16 mg/dL 7-18 [facility] Thin prep Papanicolaou smear with manual screeningOrdered By: Elicia Blair on 11-06-2022 Thin prep Papanicolaou smear with manual screening 4 5-15 [facility] URINE CULTUREon 06-08-2022 Bacteria identified Cx Nom (U) URINE CULTURE NO BACTERIAL GROWTH Normal [facility] Comment on above: Performed By: #### B MP, CBCD #### [facility] [address] [place] [address] URINALYSIS REFLEX TO CULTURE on 06-06-2022 BACTERIA 1+ Abnormal [facility] Comment on above: Order Comment: FAX T O S LOWE [phone] TO PATRIOT Performed By: #### B MP, CBCD #### [facility] [address] [place] [address] Bilirubin Ql (U) Negative Normal Negative [facility] Comment on above: Order Comment: FAX T O S [place]OWE [phone] TO PATRIOT Performed By: #### B MP, CBCD #### [facility] [address] [place] [address] Clarity (U) Turbid Normal Clear [facility] Comment on above: Order Comment: FAX T O S [place]OWE [phone] TO PATRIOT Performed By: #### B MP, CBCD #### [facility] [address] [place] [address] Color (U) Yellow Normal Yellow [facility] Comment on above: Order Comment: FAX T O S LOWE [phone] TO PATRIOT Performed By: #### B MP, CBCD #### [facility] [address] [place] [address] Epithelial cells LM Ql (Urine sed) 2-4 Normal [facility] Comment on above: Order Comment: FAX T O S LOWE [phone] TO PATRIOT Performed By: #### B MP, CBCD #### [facility] [address] [place] [address] Glucose Ql (U) 3+ Normal Negative [facility] Comment on above: Order Comment: FAX T O S LOWE [phone] TO PATRIOT Performed By: #### B MP, CBCD #### [facility] [address] [place] [address] Hemoglobin Ql (U) 2+ Abnormal Negative [facility] Comment on above: Order Comment: FAX T O S [place]OWE [phone] TO PATRIOT Performed By: #### B MP, CBCD #### [facility] [address] [place] [address] KETONE Negative Normal Negative [facility] Comment on above: Order Comment: FAX T O S LOWE [phone] TO PATRIOT Performed By: #### B MP, CBCD #### [facility] [address] [place] [address] LEUKO ESTERASE 2+ Abnormal Negative [facility] Comment on above: Order Comment: FAX T O S LOWE [phone] TO PATRIOT Performed By: #### B MP, CBCD #### [facility] [address] [place] [address] Nitrite Ql (U) Negative Normal Negative [facility] Comment on above: Order Comment: FAX T O S LOWE [phone] TO PATRIOT Performed By: #### B MP, CBCD #### [facility] [address] [place] [address] pH (U) 5.0 [pH] Normal 4.5-8.0 [facility] Comment on above: Order Comment: FAX T O S LOWE [phone] TO PATRIOT Performed By: #### B MP, CBCD #### [facility] [address] [place] [address] Protein Ql (U) 1+ Abnormal Negative [facility] Comment on above: Order Comment: FAX T O S LOWE [phone] TO PATRIOT Performed By: #### B MP, CBCD #### [facility] [address] [place] [address] RBC 5-10 Normal 0-2 [facility] Comment on above: Order Comment: FAX T O S LOWE [phone] TO PATRIOT Performed By: #### B MP, CBCD #### [facility] [address] [place] [address] Specific gravity (U) [Rel density] 1.025 Normal 1.001-1.030 [facility] Comment on above: Order Comment: FAX T O S [place]OWE [phone] TO PATRIOT Performed By: #### B MP, CBCD #### [facility] [address] [place] [address] URINE REFLEX COMMENT YES Normal NO [facility] Comment on above: Order Comment: FAX T O S LOWE [phone] TO PATRIOT Result Comment: REFL EX CRITERIA MET FOR URINE CULTURE Performed By: #### B MP, CBCD #### [facility] [address] [place] [address] UROBILINOGEN 1.0 E.U./dl Normal 0.0-1.0 [facility] Comment on above: Order Comment: FAX T O S LOWE [phone] TO PATRIOT Performed By: #### B MP, CBCD #### [facility] [address] [place] [address] WBC TNTC Normal 0-5 [facility] Comment on above: Order Comment: FAX T O S LOWE [phone] TO PATRIOT Performed By: #### B MP, CBCD #### [facility] [address] [place] [address] Absolute lymphocyte countOrd ered By: Naresh Sainz on 06-02-2022 Lymphocytes Auto (Unsp spec) [#/Vol] 1.3 10*3/uL 1.10-4.80 [facility] Basic Metabolic Panelon 05-06 0-2022 Anion gap [Moles/Vol] 9.0 mmol/L Normal 3-11 [place] ([place]) Comment on above: Performed By: #### C D #### [facility] [address] [place] [address] Calcium [Mass/Vol] 8.8 mg/dL Normal 8.5-10.5 [facility] ([place]) Comment on above: Performed By: #### C D #### [facility] [address] [place] [address] Chloride [Moles/Vol] 100 mmol/L Normal 98-107 [facility] ([place]) Comment on above: Performed By: #### C D #### [facility] [address] [place] [address] CO2 [Moles/Vol] 26 mmol/L Normal 21-31 [facility] ([place]) Comment on above: Performed By: #### C D #### [facility] [address] [place] [address] Creatinine [Moles/Vol] 1.3 mg/dL Normal 0.6-1.3 [facility] ([place]) Comment on above: Performed By: #### C D #### [address] [address] Creatinine and Glomerular filtration rate.predicted panel (S/P/Bld) 65 mL/min Normal >60 [facility] ([place]) Comment on above: Performed By: #### C D #### [facility] [address] [place] [address] GFR/1.73 sq M.predicted among non-blacks MDRD (S/P/Bld) [Vol rate/Area] 54 mL/min/{1.73_m2} Normal >60 [facility] ([place]) Comment on above: Performed By: #### C D #### [address] [address] Glucose [Mass/Vol] 153 mg/dL High 70-99 [facility] ([place]) Comment on above: Performed By: #### C D #### [facility] [address] [place] [address] Potassium [Moles/Vol] 3.9 mmol/L Normal 3.6-5.0 [place] ([place]) Comment on above: Performed By: #### C D #### [facility] [address] [place] [address] Sodium [Moles/Vol] 135 mmol/L Normal 135-145 [facility] ([place]) Comment on above: Performed By: #### C D #### [facility] [address] [place] [address] Urea nitrogen [Mass/Vol] 13 mg/dL Normal 6-20 [facility] ([place]) Comment on above: Performed By: #### C D #### [facility] [address] [place] [address] Basophils Auto (Bld) [#/Vol] Ordered By: Naresh Sainz on 06-02-2022 Basophils (Bld) [#/Vol] 0.0 10*3/uL 0.00-0.20 [facility] Basophils/100 WBC Auto (Bld) Ordered By: Naresh Sainz on 06-02-2022 Basophils/100 WBC (Bld) 0.4 % 0.0-1.5 [facility] Blood magnesium measurement (mass/volume)Ordered By: Naresh Sainz on 06-02-2022 Magnesium (Bld) [Mass/Vol] 1.6 mEq/L 1.6-2.6 [facility] CBC W/ Auto Diffon Basophils (Bld) [#/Vol] 0.0 10*3/uL Normal 0.00-0.20 [facility] ([place]) Comment on above: Performed By: #### C D #### [facility] [address] [place] [address] Basophils/100 WBC (Bld) 0.4 % Normal 0.0-1.5 [facility] ([place]) Comment on above: Performed By: #### C D #### [address] [address] Eosinophils (Bld) [#/Vol] 0.1 10*3/uL Normal 0.00-0.33 [facility] ([place]) Comment on above: Performed By: #### C D #### [facility] [address] [place] [address] Eosinophils/100 WBC (Bld) 0.9 % Normal 0.0-3.0 [facility] ([place] Comment on above: Performed By: #### C D #### [facility] [address] [place] [address] Erythrocyte distribution width (RBC) [Ratio] 14.8 % High 10.9-14.3 [facility] ([place]) Comment on above: Performed By: #### C D #### [facility] [address] [place] [address] Hematocrit (Bld) [Volume fraction] 39.0 % Low 41.0-50.0 [facility] ([place]) Comment on above: Performed By: #### C D #### [facility] [address] [place] [address] Hemoglobin (Bld) [Mass/Vol] 12.7 g/dL Low 13.5-16.5 [facility] ([place]) Comment on above: Performed By: #### C D #### [facility] [address] [place] [address] Lymphocytes Auto (Unsp spec) [#/Vol] 1.3 10*3/uL Normal 1.10-4.80 [facility] [facility] ([place]) Comment on above: Performed By: #### C D #### [address] [address] Lymphocytes/100 WBC (Bld) 16.2 % Low 24.0-44.0 [facility] ([place]) Comment on above: Performed By: #### C D #### [facility] [address] [place] [address] MCH (RBC) [Entitic mass] 28.2 pg Normal 28.0-34.0 [facility] ([place]) Comment on above: Performed By: #### C D #### [facility] [address] [place] [address] MCHC (RBC) [Mass/Vol] 32.7 g/dL Low 33.0-37.0 [place] ([place]) Comment on above: Performed By: #### C D #### [facility] [address] [place] [address] MCV (RBC) [Entitic vol] 86.1 fL Normal 80.0-100.0 [facility] ([place]) Comment on above: Performed By: #### C D #### [facility] [address] [place] [address] Monocytes (Bld) [#/Vol] 0.8 10*3/uL High 0.20-0.70 [facility] ([place]) Comment on above: Performed By: #### C D #### [facility] [address] [place] [address] Monocytes/100 WBC (Bld) 9.4 % High 3.4-9.0 [facility] ([place] Comment on above: Performed By: #### C D #### [facility] [address] [place] [address] Neutrophils (Bld) [#/Vol] 6.0 10*3/uL Normal 1.83-8.70 [facility] ([place] Comment on above: Performed By: #### C D #### [facility] [address] [place] [address] Neutrophils/100 WBC (Bld) 73.1 % Normal 40.0-74.0 [facility] ([place] Comment on above: Performed By: #### C D #### [facility] [address] [place] [address] Platelet mean volume (Bld) [Entitic vol] 6.6 fL Low 7.4-10.4 [facility] ([place] Comment on above: Performed By: #### C D #### [facility] [address] [place] [address] Platelets (Bld) [#/Vol] 167 10*3/uL Normal 150-450 [facility] ([place] Comment on above: Performed By: #### C D #### [facility] [address] [place] [address] RBC (Bld) [#/Vol] 4.53 10*6/uL Normal 4.50-5.50 [facility] ([place] Comment on above: Performed By: #### C D #### [facility] [address] [place] [address] WBC (Bld) [#/Vol] 8.2 10*3/uL Normal 4.5-11.0 [facility] ([place] Comment on above: Performed By: #### C D #### [address] [address] Carbon dioxide, total [Moles /volume] in Serum or PlasmaOrdered By: Naresh Sainz on 06-02-2022 CO2 [Moles/Vol] 26 mmol/L 21-31 [facility] Chloride [Moles/volume] in S maricel or PlasmaOrdered By: Naresh Sainz on 06-02-2022 Chloride [Moles/Vol] 100 mmol/L 98-107 [facility] Creatinine and Glomerular fi ltration rate.predicted panel (S/P/Bld)Ordered By: Naresh Sainz on 06-02-2022 GFR/1.73 sq M.predicted MDRD (S/P/Bld) [Vol rate/Area] 65 mL/min/{1.73_m2} >60 [facility] Eosinophils Auto (Bld) [#/Vo l]Ordered By: Naresh Sainz on 06-02-2022 Eosinophils (Bld) [#/Vol] 0.1 10*3/uL 0.00-0.33 [facility] Eosinophils/100 WBC Auto (Bl d)Ordered By: Naresh Sainz on 06-02-2022 Eosinophils/100 WBC (Bld) 0.9 % 0.0-3.0 [facility] Erythrocyte distribution wid th Auto (RBC) [Ratio]Ordered By: Naresh Sainz on 06-02-2022 Erythrocyte distribution width (RBC) [Ratio] 14.8 % 10.9-14.3 [facility] Estimated glomerular filtrat ion rate (GFR) non- AmericanOrdered By: Naresh Sainz on 06-02-2022 GFR/1.73 sq M.predicted among non-blacks MDRD (S/P/Bld) [Vol rate/Area] 54 mL/min/{1.73_m2} >60 [facility] Glucose Glucometer (BldC) [M ass/Vol]on 06-02-2022 Glucose [Mass/Vol] 239 mg/dL Normal 70-99 [facility] ([place]) Comment on above: Performed By: #### 2 1020-3 #### [facility] [address] [place] [address] Glucose [Mass/Vol] 158 mg/dL Normal 70-99 [facility] ([place] Comment on above: Performed By: #### 4 1653-7 #### [facility] [address] [place] [address] Glucose Glucometer (BldC) [M ass/Vol]Ordered By: Naresh Sainz on 06-02-2022 Glucose [Mass/Vol] 239 mg/dL 70-99 [facility] Hematocrit Auto (Bld) [Volum e fraction]Ordered By: Naresh Sainz on 06-02-2022 Hematocrit (Bld) [Volume fraction] 39.0 % 41.0-50.0 [facility] Hemoglobin A1con 06-02-2022 Average glucose Estimated from glycated hemoglobin (Bld) [Mass/Vol] 235 mg/dL Normal [facility] ([place]) Comment on above: Performed By: #### C D #### [facility] [address] [place], [place] [address] (728) HbA1c (Bld) [Mass fraction] 9.8 % High 4.0-6.0 [facility] ([place]) Comment on above: Performed By: #### C D #### [facility] [address] [place], [place] [id number] (354) Hemoglobin [Mass/volume] in BloodOrdered By: Naresh Sainz on 06-02-2022 Hemoglobin (Bld) [Mass/Vol] 12.7 g/dL 13.5-16.5 [facility] Lymphocytes/100 WBC Auto (Bl d)Ordered By: Naresh Sainz on 06-02-2022 Lymphocytes/100 WBC (Bld) 16.2 % 24.0-44.0 [facility] MCH Auto (RBC) [Entitic mass ]Ordered By: Naresh Sainz on 06-02-2022 MCH (RBC) [Entitic mass] 28.2 pg 28.0-34.0 [facility] MCHC Auto (RBC) [Mass/Vol]Or dered By: Naresh Sainz on 06-02-2022 MCHC (RBC) [Mass/Vol] 32.7 g/dL 33.0-37.0 [place] MCV (mean corpuscular volume ) determinationOrdered By: Naresh Sainz on 06-02-2022 MCV (RBC) [Entitic vol] 86.1 fL 80.0-100.0 [facility] Magnesium Bld-mCncon 023 Magnesium (Bld) [Mass/Vol] 1.6 mEq/L Normal 1.6-2.6 [facility] ([place]) Comment on above: Performed By: #### C D #### [facility] [address] [place], [place] [address] (560) Monocytes Auto (Bld) [#/Vol] Ordered By: Naresh Sainz on 06-02-2022 Monocytes (Bld) [#/Vol] 0.8 10*3/uL 0.20-0.70 [facility] Monocytes/100 WBC Auto (Bld) Ordered By: Naresh Sainz on 06-02-2022 Monocytes/100 WBC (Bld) 9.4 % 3.4-9.0 [facility] Neutrophils Auto (Bld) [#/Vo l]Ordered By: Naresh Sainz on 06-02-2022 Neutrophils (Bld) [#/Vol] 6.0 10*3/uL 1.83-8.70 [facility] Neutrophils/100 WBC Auto (Bl d)Ordered By: Naresh Sainz on 06-02-2022 Neutrophils/100 WBC (Bld) 73.1 % 40.0-74.0 [facility] No Panel InformationOrdered By: Naresh Sainz on 06-02-2022 Anticoagulation Therapy See comment [facility] Comment on above: Suggested Therapy Ra nge: 2.0 - 3.5 Platelet mean volume Auto (B ld) [Entitic vol]Ordered By: Naresh Sainz on 06-02-2022 Platelet mean volume (Bld) [Entitic vol] 6.6 fL 7.4-10.4 [facility] Platelet poor plasma interna tional normalized ratio (INR) by coagulation assay (relatOrdered By: Naresh Sainz on 06-02-2022 INR Coag (PPP) [Relative time] 1.41 {INR} 2.00-3.50 [facility] Platelets Auto (Bld) [#/Vol] Ordered By: Naresh Sainz on 06-02-2022 Platelets (Bld) [#/Vol] 167 10*3/uL 150-450 [facility] Potassium [Moles/volume] in Serum or PlasmaOrdered By: Naresh Sainz on 06-02-2022 Potassium [Moles/Vol] 3.9 mmol/L 3.6-5.0 [place] Prothrombin Time on Coumadin on 06-02-2022 INR Coag (PPP) [Relative time] 1.41 {INR} Low 2.00-3.50 [facility] ([place]) Comment on above: Performed By: #### 3 2693-4 #### [facility] [address] [place] [address] RBC Auto (Bld) [#/Vol]Ordere d By: Naresh Sainz on 06-02-2022 RBC (Bld) [#/Vol] 4.53 10*6/uL 4.50-5.50 [facility] Reflex Urn Culton 06-02-2022 Bacteria identified Cx Nom (U) ORGANISM ID: 1.1 - Mixed Urogenital Daryn [place] Count >100,000 CFU/ml Normal [facility] ([place] Comment on above: Performed By: #### 6 30-4 #### [facility] [address] [place] [address] Serum glucose measurement (m ass/volume)Ordered By: Naresh Sainz on 06-02-2022 Glucose [Mass/Vol] 153 mg/dL 70-99 [facility] Serum or plasma anion gap de termination (moles/volume)Ordered By: Naresh Sainz on 06-02-2022 Anion gap [Moles/Vol] 9.0 mmol/L 3-11 [place] Serum or plasma calcium maricel urement (mass/volume)Ordered By: Naresh Sainz on 06-02-2022 Calcium [Mass/Vol] 8.8 mg/dL 8.5-10.5 [facility] Serum or plasma creatinine m easurement (moles/volume)Ordered By: Naresh Sainz on 06-02-2022 Creatinine [Moles/Vol] 1.3 mg/dL 0.6-1.3 [facility] Serum or plasma sodium measu rement (moles/volume)Ordered By: Naresh Sainz on 06-02-2022 Sodium [Moles/Vol] 135 mmol/L 135-145 [facility] Serum or plasma urea nitroge n measurement (mass/volume)Ordered By: Naresh Sainz on 06-02-2022 Urea nitrogen [Mass/Vol] 13 mg/dL 6-20 [facility] Urine culture routineOrdered By: Thompson Hayden on 06-02-2022 Bacteria identified Cx Nom (U) Mixed Urogenital Daryn [facility] WBC Auto (Bld) [#/Vol]Ordere d By: Naresh Sainz on 06-02-2022 WBC (Bld) [#/Vol] 8.2 10*3/uL 4.5-11.0 [facility] Basic Metabolic Panelon 05-05 Anion gap [Moles/Vol] 6.0 mmol/L Normal 3-11 [place] ([place] Comment on above: Performed By: #### 6 30-4 #### [facility] [address] [place] [address] Calcium [Mass/Vol] 8.9 mg/dL Normal 8.5-10.5 [facility] ([place] Comment on above: Performed By: #### 6 30-4 #### [facility] [address] [place] [address] Chloride [Moles/Vol] 101 mmol/L Normal 98-107 [facility] ([place]) Comment on above: Performed By: #### 6 30-4 #### [facility] [address] [place] [address] CO2 [Moles/Vol] 28 mmol/L Normal 21-31 [facility] ([place] Comment on above: Performed By: #### 6 30-4 #### [facility] [address] [place] [address] Creatinine [Moles/Vol] 1.3 mg/dL Normal 0.6-1.3 [facility] ([place]) Comment on above: Performed By: #### 6 30-4 #### [facility] [address] [place] [address] Creatinine and Glomerular filtration rate.predicted panel (S/P/Bld) 65 mL/min Normal >60 [facility] ([place] Comment on above: Performed By: #### 6 30-4 #### [facility] [address] [place] [address] GFR/1.73 sq M.predicted among non-blacks MDRD (S/P/Bld) [Vol rate/Area] 54 mL/min/{1.73_m2} Normal >60 [facility] ([place] Comment on above: Performed By: #### 6 30-4 #### [facility] [address] [place] [address] Glucose [Mass/Vol] 157 mg/dL High 70-99 [facility] ([place] Comment on above: Performed By: #### 6 30-4 #### [facility] [address] [place] [address] Potassium [Moles/Vol] 3.8 mmol/L Normal 3.6-5.0 [place] ([place] Comment on above: Performed By: #### 6 30-4 #### [facility] [address] [place] [address] Sodium [Moles/Vol] 135 mmol/L Normal 135-145 [facility] ([place] Comment on above: Performed By: #### 6 30-4 #### [facility] [address] [place] [address] Urea nitrogen [Mass/Vol] 15 mg/dL Normal 6-20 [facility] ([place] Comment on above: Performed By: #### 6 30-4 #### [facility] [address] [place] [address] CBC W/ Auto Diffon 3 Basophils (Bld) [#/Vol] 0.1 10*3/uL Normal 0.00-0.20 [facility] ([place] Comment on above: Performed By: #### 6 30-4 #### [facility] [address] [place] [address] Basophils/100 WBC (Bld) 0.8 % Normal 0.0-1.5 [facility] ([place]) Comment on above: Performed By: #### 6 30-4 #### [facility] [address] [place] [address] Eosinophils (Bld) [#/Vol] 0.2 10*3/uL Normal 0.00-0.33 [facility] ([place] Comment on above: Performed By: #### 6 30-4 #### [facility] [address] [place] [address] Eosinophils/100 WBC (Bld) 3.1 % High 0.0-3.0 [facility] ([place] Comment on above: Performed By: #### 6 30-4 #### [facility] [address] [place] [address] Erythrocyte distribution width (RBC) [Ratio] 14.8 % High 10.9-14.3 [facility] ([place] Comment on above: Performed By: #### 6 30-4 #### [address] [address] Hematocrit (Bld) [Volume fraction] 37.9 % Low 41.0-50.0 [facility] ([place] Comment on above: Performed By: #### 6 30-4 #### [address] [address] Hemoglobin (Bld) [Mass/Vol] 12.6 g/dL Low 13.5-16.5 [facility] ([place] Comment on above: Performed By: #### 6 30-4 #### [address] [address] Lymphocytes Auto (Unsp spec) [#/Vol] 1.5 10*3/uL Normal 1.10-4.80 [facility] ([place] Comment on above: Performed By: #### 6 30-4 #### [address] [address] Lymphocytes/100 WBC (Bld) 21.5 % Low 24.0-44.0 [facility] ([place] Comment on above: Performed By: #### 6 30-4 #### [facility] [address] [place] [address] MCH (RBC) [Entitic mass] 28.7 pg Normal 28.0-34.0 [facility] ([place] Comment on above: Performed By: #### 6 30-4 #### [facility] [address] [place] [address] MCHC (RBC) [Mass/Vol] 33.3 g/dL Normal 33.0-37.0 [place] ([place] Comment on above: Performed By: #### 6 30-4 #### [address] [address] MCV (RBC) [Entitic vol] 86.0 fL Normal 80.0-100.0 [facility] ([place] Comment on above: Performed By: #### 6 30-4 #### [address] [address] Monocytes (Bld) [#/Vol] 0.5 10*3/uL Normal 0.20-0.70 [facility] ([place] Comment on above: Performed By: #### 6 30-4 #### [facility] [address] [place] [address] Monocytes/100 WBC (Bld) 7.2 % Normal 3.4-9.0 [facility] ([place] Comment on above: Performed By: #### 6 30-4 #### [facility] [address] [place] [address] Neutrophils (Bld) [#/Vol] 4.9 10*3/uL Normal 1.83-8.70 [facility] ([place] Comment on above: Performed By: #### 6 30-4 #### [address] [address] Neutrophils/100 WBC (Bld) 67.4 % Normal 40.0-74.0 [facility] ([place] Comment on above: Performed By: #### 6 30-4 #### [facility] [address] [place] [address] Platelet mean volume (Bld) [Entitic vol] 6.6 fL Low 7.4-10.4 [facility] ([place] Comment on above: Performed By: #### 6 30-4 #### [facility] [address] [place] [address] Platelets (Bld) [#/Vol] 155 10*3/uL Normal 150-450 [facility] ([place] Comment on above: Performed By: #### 6 30-4 #### [address] [address] RBC (Bld) [#/Vol] 4.41 10*6/uL Low 4.50-5.50 [facility] ([place] Comment on above: Performed By: #### 6 30-4 #### [address] [address] WBC (Bld) [#/Vol] 7.2 10*3/uL Normal 4.5-11.0 [facility] ([place] Comment on above: Performed By: #### 6 30-4 #### [facility] [address] [place] [address] Glucose Glucometer (BldC) [M ass/Vol]on 06-01-2022 Glucose [Mass/Vol] 161 mg/dL Normal 70-99 [facility] ([place] Comment on above: Performed By: #### 4 1653-7 #### [address] [address] Glucose [Mass/Vol] 206 mg/dL Normal 70-99 [facility] ([place] Comment on above: Performed By: #### 6 30-4 #### [address] [address] Glucose [Mass/Vol] 232 mg/dL Normal 70-99 [facility] ([place] Comment on above: Performed By: #### 6 30-4 #### [facility] [address] [place] [address] Glucose [Mass/Vol] 152 mg/dL Normal 70-99 [facility] ([place] Comment on above: Performed By: #### 4 1653-7 #### [facility] [address] [place] [address] Laboratory - Hematology and Cell countsOrdered By: Naresh Sainz on 06-01-2022 HbA1c (Bld) [Mass fraction] 9.8 % 4.0-6.0 [facility] Lipid Panelon 06-01-2022 Cholesterol [Mass/Vol] 97 mg/dL Low 140-200 [facility] ([place]) Comment on above: Performed By: #### 9 4500-6 #### [facility] [address] [place] [address] Cholesterol in HDL [Mass/Vol] 28 mg/dL Low 29-71 [facility] ([place] Comment on above: Performed By: #### 9 4500-6 #### [facility] [address] [place] [address] Cholesterol in LDL [Mass/Vol] 48 mg/dL Normal <129 [facility] ([place] Comment on above: Performed By: #### 9 4500-6 #### [facility] [address] [place] [address] Cholesterol in LDL/Cholesterol in HDL [Mass ratio] 1.7 {ratio} Normal [facility] ([place] Comment on above: Result Comment: MEN WOMEN 1/2 Average Risk 1.00 1.47 Average Risk 3.55 3.22 2X Average Risk 6.25 5.03 3X Average Risk 7.99 6.14 Performed By: #### 9 4500-6 #### [facility] [address] [place] [address] Triglyceride [Mass/Vol] 167 mg/dL Normal 41-189 [facility] ([place] Comment on above: Performed By: #### 9 4500-6 #### [facility] [address] [place] [address] Magnesium Bld-mCncon 023 Magnesium (Bld) [Mass/Vol] 1.7 mEq/L Normal 1.6-2.6 [facility] ([place] Comment on above: Performed By: #### 6 30-4 #### [facility] [address] [place] [address] Prothrombin Time on Coumadin on 06-01-2022 INR Coag (PPP) [Relative time] 1.32 {INR} Low 2.00-3.50 [facility] ([place] Comment on above: Performed By: #### 9 4500-6 #### [facility] [address] [place] [address] Serum or plasma cholesterol in LDL measurement (mass/volume)Ordered By: Naresh Sainz on 06-01-2022 Cholesterol in LDL [Mass/Vol] 48 mg/dL <128 [facility] Serum or plasma cholesterol measurement (mass/volume)Ordered By: Naresh Sainz on 06-01-2022 Cholesterol [Mass/Vol] 97 mg/dL 140-200 [facility] Serum or plasma high density lipoprotein (HDL) cholesterol measurementOrdered By: Naresh Sainz on 06-01-2022 Cholesterol in HDL [Mass/Vol] 28 mg/dL 29-71 [facility] Serum or plasma low density lipoprotein (LDL) cholesterol/high density lipoprotein (HOrdered By: Naresh Sainz on 06-01-2022 Cholesterol in LDL/Cholesterol in HDL [Mass ratio] 1.7 {ratio} [facility] Comment on above: MEN WOMEN1/2 Average Risk 1.00 1.47Average Risk 3.55 3.222X Average Risk 6.25 5.033X Average Risk 7.99 6.14 Serum or plasma thyroid stim ulating hormone (TSH) measurementOrdered By: Naresh Sainz on 06-01-2022 TSH Qn 3.49 uIU/mL 0.34-5.60 [facility] Serum or plasma triglyceride measurement (mass/volume)Ordered By: Naresh Sainz on 06-01-2022 Triglyceride [Mass/Vol] 167 mg/dL 41-189 [facility] TSH SerPl-aCncon 06-01-2022 TSH Qn 3.49 uIU/mL Normal 0.34-5.60 [facility] ([place] Comment on above: Performed By: #### 9 4500-6 #### [facility] [address] [place] [address] Whole blood estimated averag e glucose determination by estimation from glycated hemoglobin (mass/voluOrdered By: Naresh Sainz on 06-01-2022 Average glucose Estimated from glycated hemoglobin (Bld) [Mass/Vol] 235 mg/dL [facility] ALT (SGPT) ser/plasOrdered B y: Thompson Hayden on 05-31-2022 ALT [Catalytic activity/Vol] 23 U/L 10-63 [facility] Albumin [Mass/volume] in Ser um or PlasmaOrdered By: Thompson Hayden on 05-31-2022 Albumin [Mass/Vol] 3.2 g/dL 3.4-4.8 [facility] Albumin/Globulin [Mass Ratio ] in Serum or PlasmaOrdered By: Thompson Hayden on 05-31-2022 Albumin/Globulin [Mass ratio] 0.8 {ratio} 1.1-2.2 [facility] Alkaline phosphatase [Enzyma tic activity/volume] in Serum or PlasmaOrdered By: Thompson Hayden on 05-31-2022 ALP [Catalytic activity/Vol] 72 U/L 42-121 [facility] Appearance urOrdered By: Jose Hayden on 05-31-2022 Appearance (U) Cloudy [facility] Aspartate aminotransferase [ Enzymatic activity/volume] in Serum or PlasmaOrdered By: Thompson Hayden on 05-31-2022 AST [Catalytic activity/Vol] 22 U/L 10-41 [facility] Automated leukocyte clumps c ount in urine sediment (number/area)Ordered By: Thompson Hayden on 05-31-2022 Leukocyte clumps Auto (Urine sed) [#/Area] Moderate /HPF NONE SEEN [facility] Automated urine sediment bud ding yeast count by microscopy (number/high power field)Ordered By: Thompson Hayden on 05-31-2022 Yeast.budding LM.HPF (Urine sed) [#/Area] Few /HPF NONE SEEN [facility] Bacteria [Presence] in Urine sediment by Light microscopyOrdered By: Thompson Hayden on 05-31-2022 Bacteria LM Ql (Urine sed) 1+ /HPF NONE SEEN [facility] Bilirubin.total [Mass/volume ] in Serum or PlasmaOrdered By: Thompson Hayden on 05-31-2022 Bilirubin [Mass/Vol] 0.8 mg/dL 0.3-1.5 [facility] Blood Cultureon 05-31-2022 Bacteria identified Anaer+Aer cx Nom (Unsp spec) Bacteria Spec Anaerobe+Aerobe Cult NO GROWTH 5 DAYS Normal [facility] ([place] Comment on above: Performed By: #### 2 1020-3 #### [facility] [address] [place] [address] CBC W/ Auto Diffon 3 Basophils (Bld) [#/Vol] 0.0 10*3/uL Normal 0.00-0.20 [facility] ([place] Comment on above: Performed By: #### 9 4500-6 #### [address] [address] Basophils/100 WBC (Bld) 0.7 % Normal 0.0-1.5 [facility] ([place] Comment on above: Performed By: #### 9 4500-6 #### [facility] [address] [place] [address] Eosinophils (Bld) [#/Vol] 0.2 10*3/uL Normal 0.00-0.33 [facility] ([place] Comment on above: Performed By: #### 9 4500-6 #### [address] [address] Eosinophils/100 WBC (Bld) 2.9 % Normal 0.0-3.0 [facility] ([place] Comment on above: Performed By: #### 9 4500-6 #### [facility] [address] [place] [address] Erythrocyte distribution width (RBC) [Ratio] 14.7 % High 10.9-14.3 [facility] ([place] Comment on above: Performed By: #### 9 4500-6 #### [facility] [address] [place] [address] Hematocrit (Bld) [Volume fraction] 37.6 % Low 41.0-50.0 [facility] ([place] Comment on above: Performed By: #### 9 4500-6 #### [facility] [address] [place] [address] Hemoglobin (Bld) [Mass/Vol] 12.6 g/dL Low 13.5-16.5 [facility] ([place] Comment on above: Performed By: #### 9 4500-6 #### [facility] [address] [place] [address] Lymphocytes Auto (Unsp spec) [#/Vol] 1.4 10*3/uL Normal 1.10-4.80 [facility] ([place] Comment on above: Performed By: #### 9 4500-6 #### [facility] [address] [place] [address] Lymphocytes/100 WBC (Bld) 19.9 % Low 24.0-44.0 [facility] ([place]) Comment on above: Performed By: #### 9 4500-6 #### [facility] [address] [place] [address] MCH (RBC) [Entitic mass] 28.9 pg Normal 28.0-34.0 [facility] ([place]) Comment on above: Performed By: #### 9 4500-6 #### [facility] [address] [place] [address] MCHC (RBC) [Mass/Vol] 33.5 g/dL Normal 33.0-37.0 [place] ([place]) Comment on above: Performed By: #### 9 4500-6 #### [address] [address] MCV (RBC) [Entitic vol] 86.3 fL Normal 80.0-100.0 [facility] ([place]) Comment on above: Performed By: #### 9 4500-6 #### [address] [address] Monocytes (Bld) [#/Vol] 0.5 10*3/uL Normal 0.20-0.70 [facility] ([place]) Comment on above: Performed By: #### 9 4500-6 #### [address] [address] Monocytes/100 WBC (Bld) 7.2 % Normal 3.4-9.0 [facility] ([place] Comment on above: Performed By: #### 9 4500-6 #### [address] [address] Neutrophils (Bld) [#/Vol] 4.9 10*3/uL Normal 1.83-8.70 [facility] ([place] Comment on above: Performed By: #### 9 4500-6 #### [address] [address] Neutrophils/100 WBC (Bld) 69.3 % Normal 40.0-74.0 [facility] ([place] Comment on above: Performed By: #### 9 4500-6 #### [address] [address] Platelet mean volume (Bld) [Entitic vol] 6.6 fL Low 7.4-10.4 [facility] ([place] Comment on above: Performed By: #### 9 4500-6 #### [address] [address] Platelets (Bld) [#/Vol] 147 10*3/uL Low 150-450 [facility] ([place] Comment on above: Performed By: #### 9 4500-6 #### [facility] [address] [place] [address] RBC (Bld) [#/Vol] 4.36 10*6/uL Low 4.50-5.50 [facility] ([place] Comment on above: Performed By: #### 9 4500-6 #### [facility] [address] [place] [address] WBC (Bld) [#/Vol] 7.1 10*3/uL Normal 4.5-11.0 [facility] ([place] Comment on above: Performed By: #### 9 4500-6 #### [facility] [address] [place] [address] CO2 (BldV) [Moles/Vol]Ordere d By: Thompson Hayden on 05-31-2022 CO2 [Moles/Vol] 28.6 mmol/L [facility] CT chest wo conon 05-31-2022 CT chest wo con [facility] [address] [place] [address] CT Scan Report Signed Patient: CHARLI PORRAS R#: [id number] : 1950 Acct:[id number] Age/Sex: 72 / M Admit Date: 05/31/22 Loc: 2T 2014- Attending Dr: Naresh Sainz DO Ordering Physician: Naresh Sainz DO Date of Service: 05/31/22 Procedure(s): CT chest wo con Accession Number(s): [id number] cc: Naresh Sainz DO INDICATION: Shortness of [...] 09 Signed By: Radu Carvalho MD 05/31/222125 Medical Reimbursement Specialist: Normal [facility] ([place]) Comprehensive metabolic 2000 panelon 05-31-2022 Albumin [Mass/Vol] 3.2 g/dL Low 3.4-4.8 [facility]) Comment on above: Performed By: #### 4 1653-7 #### [facility] [address] [place] [address] Albumin/Globulin [Mass ratio] 0.8 {ratio} Low 1.1-2.2 [facility]) Comment on above: Performed By: #### 4 1653-7 #### [facility] [address] [place] [address] ALP [Catalytic activity/Vol] 72 U/L Normal 42-121 [facility] ([place] Comment on above: Performed By: #### 4 1653-7 #### [facility] [address] [place] [address] ALT [Catalytic activity/Vol] 23 U/L Normal 10-63 [facility]) Comment on above: Performed By: #### 4 1653-7 #### [facility] [address] [place] [address] Anion gap [Moles/Vol] 10.0 mmol/L Normal 3-11 [facility]) Comment on above: Performed By: #### 4 1653-7 #### [facility] [address] [place] [address] AST [Catalytic activity/Vol] 22 U/L Normal 10-41 [facility] ([place] Comment on above: Performed By: #### 4 1653-7 #### [facility] [address] [place] [address] Bilirubin [Mass/Vol] 0.8 mg/dL Normal 0.3-1.5 [facility] ([place]) Comment on above: Performed By: #### 4 1653-7 #### [facility] [address] [place] [address] Calcium [Mass/Vol] 8.8 mg/dL Normal 8.5-10.5 [facility] ([place] Comment on above: Performed By: #### 4 1653-7 #### [address] [address] Chloride [Moles/Vol] 99 mmol/L Normal 98-107 [facility] ([place] Comment on above: Performed By: #### 4 1653-7 #### [address] [address] CO2 [Moles/Vol] 25 mmol/L Normal 21-31 [facility] ([place] Comment on above: Performed By: #### 4 1653-7 #### [facility] [address] [place] [address] Creatinine [Moles/Vol] 1.2 mg/dL Normal 0.6-1.3 [facility] ([place] Comment on above: Performed By: #### 4 1653-7 #### [address] [address] Creatinine and Glomerular filtration rate.predicted panel (S/P/Bld) 72 mL/min Normal >60 [facility] ([place] Comment on above: Performed By: #### 4 1653-7 #### [facility] [address] [place] [address] GFR/1.73 sq M.predicted among non-blacks MDRD (S/P/Bld) [Vol rate/Area] 59 mL/min/{1.73_m2} Normal >60 [facility] ([place] Comment on above: Performed By: #### 4 1653-7 #### [facility] [address] [place] [address] Globulin (S) [Mass/Vol] 3.8 g/dL Normal 1.9-3.9 [facility] ([place] Comment on above: Performed By: #### 4 1653-7 #### [facility] [address] [place] [address] Glucose [Mass/Vol] 195 mg/dL High 70-99 [facility] ([place] Comment on above: Performed By: #### 4 1653-7 #### [facility] [address] [place] [address] Potassium [Moles/Vol] 3.6 mmol/L Normal 3.6-5.0 [place] ([place] Comment on above: Performed By: #### 4 1653-7 #### [facility] [address] [place] [address] Protein [Mass/Vol] 7.0 g/dL Normal 5.9-7.8 [facility] ([place] Comment on above: Performed By: #### 4 1653-7 #### [facility] [address] [place] [address] Sodium [Moles/Vol] 134 mmol/L Low 135-145 [facility] ([place] Comment on above: Performed By: #### 4 1653-7 #### [facility] [address] [place] [address] Urea nitrogen [Mass/Vol] 17 mg/dL Normal 6-20 [facility] ([place] Comment on above: Performed By: #### 4 1653-7 #### [facility] [address] [place] [address] Detection in urine of either or both bilirubin and urobilinogenOrdered By: Thompson Hayden on 05-31-2022 Bilirubin+Urobilinogen Ql (U) Negative NEGATIVE [facility] Gas panel (BldV)on CO2 (BldV) [Partial pressure] 48 mm[Hg] Normal 39-55 [facility] ([place] Comment on above: Performed By: #### C D #### [facility] [address] [place] [address] CO2 [Moles/Vol] 28.6 mmol/L Normal 23-29 [facility] ([place] Comment on above: Performed By: #### C D #### [facility] [address] [place] [address] HCO3 (Bld) [Moles/Vol] 27.1 mmol/L Normal 22-28 [facility] ([place]) Comment on above: Performed By: #### C D #### [facility] [address] [place] [address] Oxygen (BldV) [Partial pressure] 62.0 mm[Hg] High 30-50 [facility] ([place] Comment on above: Performed By: #### C D #### [facility] [address] [place] [address] pH (BldV) 7.36 [pH] Normal 7.31-7.42 [facility] ([place] Comment on above: Performed By: #### C D #### [facility] [address] [place] [address] VBG Oxygen Saturation 90 % High 50-85 [place] ([place] Comment on above: Performed By: #### C D #### [facility] [address] [place] [address] Glucose Glucometer (BldC) [M ass/Vol]on 05-31-2022 Glucose [Mass/Vol] 264 mg/dL Normal 70-99 [facility] ([place] Comment on above: Performed By: #### 6 30-4 #### [facility] [address] [place] [address] Glucose [Mass/volume] in Uri ne by Automated test stripOrdered By: Thompson Hayden on 05-31-2022 Glucose Auto test strip (U) [Mass/Vol] 1000 mg/dL NEGATIVE [facility] HCO3 (BldV) [Moles/Vol]Order ed By: Thompson Hayden on 05-31-2022 HCO3 (Bld) [Moles/Vol] 27.1 mmol/L [facility] Influenza A,B [facility] by PCRon 05-31-2022 FLUBV Ag Ql (Unsp spec) Negative Normal Negative [facility] ([place] Comment on above: Performed By: #### 4 1653-7 #### [facility] [address] [place] [address] Rapid Flu A Negative Normal Negative [facility] ([place] Comment on above: Performed By: #### 4 1653-7 #### [facility] [address] [place] [address] Lactate (Bld) [Moles/Vol]on 05-31-2022 Lactate [Moles/Vol] 1.7 mmol/L Normal 0.5-2.0 [facility] ([place] Comment on above: Performed By: #### C D #### [facility] [address] [place] [address] Lactate (Bld) [Moles/Vol]Ord ered By: Thompson Hayden on 05-31-2022 Lactate [Moles/Vol] 1.7 mmol/L 0.5-2.0 [facility] Leukocytes detection in urin e sediment by light microscopyOrdered By: Thompson Hayden on 05-31-2022 WBC LM Ql (Urine sed) >100 /HPF NONE SEEN [place] Magnesium Bld-mCncon 023 Magnesium (Bld) [Mass/Vol] 1.6 mEq/L Normal 1.6-2.6 [facility] ([place] Comment on above: Performed By: #### 4 1653-7 #### [facility] [address] [place] [address] Microscopic examination of u rineOrdered By: Thompson Hayden on 05-31-2022 Microscopic observation LM Nom (Urine sed) Yes [facility] Microscopic observation LM N om (Urine sed)on 05-31-2022 Bacteria LM Ql (Urine sed) 1+ /HPF Normal NONE SEEN [facility] ([place] Comment on above: Order Comment: Urine Collect Clean Catch Performed By: #### 4 1653-7 #### [facility] [address] [place] [address] Yeast.budding LM.HPF (Urine sed) [#/Area] FEW Normal NONE SEEN [facility] ([place] Comment on above: Order Comment: Urine Collect Clean Catch Performed By: #### 4 1653-7 #### [facility] [address] [place] [address] Leukocyte clumps Auto (Urine sed) [#/Area] MODERATE Normal NONE SEEN [facility] ([place] Comment on above: Order Comment: Urine Collect Clean Catch Performed By: #### 4 1653-7 #### [facility] [address] [place] [address] RBC Ql (U) 20-50 Normal NONE SEEN [facility] ([place] Comment on above: Order Comment: Urine Collect Clean Catch Performed By: #### 4 1653-7 #### [facility] [address] [place] [address] Transitional cells LM Ql (Urine sed) OCCASIONAL Normal NONE SEEN [facility] ([place] Comment on above: Order Comment: Urine Collect Clean Catch Performed By: #### 4 1653-7 #### [facility] [address] [place] [address] WBC LM Ql (Urine sed) >100 Normal NONE SEEN [place] ([place]) Comment on above: Order Comment: Urine Collect Clean Catch Performed By: #### 4 1653-7 #### [facility] [address] [place] [address] Natriuretic peptide B [Mass/ Vol]on 05-31-2022 Natriuretic peptide B (Bld) [Mass/Vol] 15 pg/mL Normal 0-100 [facility] ([place] Comment on above: Performed By: #### 4 1653-7 #### [facility] [address] [place] [address] Natriuretic peptide B [Mass/ Vol]Ordered By: Thompson Hayden on 05-31-2022 Natriuretic peptide B (Bld) [Mass/Vol] 15 pg/mL 0-100 [facility] No Panel InformationOrdered By: Thompson Hayden on 05-31-2022 Urine Culture Reflexed Reflexed to culture [facility] Comment on above: A Urine Culture has been added to this specimen. Influenza Type A (Rapid) Negative Negative [facility] Procalcitonin < 0.05 ng/mL 0.10-0.50 [facility] Comment on above: *PROCALCITONIN INTER PRETATION*Less than 0.5: Low risk for systemic infection.0.5 to 2.0: Moderate risk for systemic infection.Greater than 2.0: High risk for systemic infection.10.0 or greater: Likelihood of severe sepsis or septic shock. Venous Blood Oxygen Saturation 90 % 50-85 [facility] Procalcitoninon 05-31-2022 Procalcitonin < 0.05 Normal 0.10-0.50 [facility] ([place]) Comment on above: Result Comment: *PRO CALCITONIN INTERPRETATION* Less than 0.5: Low risk for systemic infection. 0.5 to 2.0: Moderate risk for systemic infection. Greater than 2.0: High risk for systemic infection. 10.0 or greater: Likelihood of severe sepsis or septic shock. Performed By: #### 4 1653-7 #### [facility] [address] [place] [address] Prothrombin Time on Coumadin on 05-31-2022 INR Coag (PPP) [Relative time] 1.72 {INR} Low 2.00-3.50 [facility] ([place] Comment on above: Performed By: #### 6 30-4 #### [facility] [address] [place] [address] RBC LM Ql (Urine sed)Ordered By: Thompson Hayden on 05-31-2022 RBC Ql (U) 20-50 /HPF NONE SEEN [facility] Rapid influenza B antigen de tectionOrdered By: Thompson Hayden on 05-31-2022 FLUBV Ag Ql (Unsp spec) Negative Negative [facility] Respiratory specimen COVID-1 9 virus RNA detectionOrdered By: Thompson Hayden on 05-31-2022 SARS-CoV-2 (COVID-19) RNA LIV+probe Ql (Resp) [facility] SARS-CoV2 PCRon 05-31-2022 SARS-CoV-2 (COVID-19) RNA LIV+probe [...] authorization is terminated or revoked sooner. Normal [facility] ([place] Comment on above: Performed By: #### 9 4500-6 #### [facility] [address] [place], [place] [id number] Serum globulin measurement ( mass/volume)Ordered By: Thompson Jackelyn on 05-31-2022 Globulin (S) [Mass/Vol] 3.8 g/dL 1.9-3.9 [facility] Specific gravity of UrineOrd ered By: Thompson Jackelyn on 05-31-2022 Specific gravity (U) [Rel density] 1.020 1.001-1.035 [facility] Total protein bloodOrdered B y: Thompson Hayden on 05-31-2022 Protein [Mass/Vol] 7.0 g/dL 5.9-7.8 [facility] Transitional cells detection in urine sediment by light microscopyOrdered By: Thompson Hayden on 05-31-2022 Transitional cells LM Ql (Urine sed) Occasional /HPF NONE SEEN [facility] Troponin I SerPl-mCncon 05-05 Troponin I.cardiac [Mass/Vol] 0.04 ng/mL High <0.03 [facility] ([place] Comment on above: Performed By: #### 4 1653-7 #### [facility] [address] [place], [place] [address] Troponin I ser/plasOrdered B y: Thompson Hayden on 05-31-2022 Troponin I.cardiac [Mass/Vol] 0.04 ng/mL <0.03 [facility] Urinalysison 05-31-2022 Bilirubin+Urobilinogen Ql (U) Negative Normal NEGATIVE [facility] ([place] Comment on above: Order Comment: Urine Collect Clean Catch Performed By: #### 4 1653-7 #### [facility] [address] [place], [place] [id number] (365) Ketones Ql (U) TRACE Abnormal NEGATIVE [facility] ([place] Comment on above: Order Comment: Urine Collect Clean Catch Performed By: #### 4 1653-7 #### [facility] [address] [place], [place] [id number] (945) Nitrate Ql (U) Negative Normal NEGATIVE [facility] ([place] Comment on above: Order Comment: Urine Collect Clean Catch Performed By: #### 4 1653-7 #### [facility] [address] [place] [address] RBC Ql (U) SMALL Abnormal NEGATIVE [facility] ([place] Comment on above: Order Comment: Urine Collect Clean Catch Performed By: #### 4 1653-7 #### [facility] [address] [place] [address] Urobilinogen (U) [Mass/Vol] Negative Normal NEGATIVE [facility] ([place] Comment on above: Order Comment: Urine Collect Clean Catch Performed By: #### 4 1653-7 #### [facility] [address] [place] [address] WBC Visual Ql (U) MODERATE Abnormal NEGATIVE [facility] ([place] Comment on above: Order Comment: Urine Collect Clean Catch Performed By: #### 4 1653-7 #### [facility] [address] [place] [address] Appearance (U) CLOUDY Normal [facility] ([place] Comment on above: Order Comment: Urine Collect Clean Catch Performed By: #### 4 1653-7 #### [facility] [address] [place] [address] Color (U) YELLOW Normal [facility] ([place] Comment on above: Order Comment: Urine Collect Clean Catch Performed By: #### 4 1653-7 #### [facility] [address] [place] [address] Glucose Auto test strip (U) [Mass/Vol] 1000 mg/dL Abnormal NEGATIVE [facility] ([place] Comment on above: Order Comment: Urine Collect Clean Catch Performed By: #### 4 1653-7 #### [address] [address] pH (U) 6.0 [pH] Normal 4.6-8.0 [facility] ([place] Comment on above: Order Comment: Urine Collect Clean Catch Performed By: #### 4 1653-7 #### [address] [place] [address] Protein Auto test strip Ql (U) 30 mg/dL Abnormal NEGATIVE [facility] ([place]) Comment on above: Order Comment: Urine Collect Clean Catch Performed By: #### 4 1653-7 #### [facility] [address] [place] [address] Specific gravity (U) [Rel density] 1.020 Normal 1.001-1.035 [facility] ([place] Comment on above: Order Comment: Urine Collect Clean Catch Performed By: #### 4 1653-7 #### [facility] [address] [place] [address] Urine blood detectionOrdered By: Thompson Hayden on 05-31-2022 RBC Ql (U) Small NEGATIVE [facility] Urine colorOrdered By: Owen Hayden on 05-31-2022 Color (U) Yellow [facility] Urine ketones detectionOrder ed By: Thompson Hayden on 05-31-2022 Ketones Ql (U) Trace mg/dL NEGATIVE [facility] Urine leukocytes detection b y microscopyOrdered By: Thompson Hayden on 05-31-2022 WBC Visual Ql (U) Moderate NEGATIVE [facility] Urine nitrate detectionOrder ed By: Thompson Hayden on 05-31-2022 Nitrate Ql (U) Negative NEGATIVE [facility] Urine pHOrdered By: Thompson springer on 05-31-2022 pH (U) 6.0 [pH] 4.6-8.0 [facility] Urine protein detection by a utomated test stripOrdered By: Thompson Hayden on 05-31-2022 Protein Auto test strip Ql (U) 30 mg/dL NEGATIVE [facility] Urobilinogen Test strip (U) [Mass/Vol]Ordered By: Thompson Hayden on 05-31-2022 Urobilinogen (U) [Mass/Vol] Negative NEGATIVE [facility] Venous blood pH measurementO rdered By: Thompson Hayden on 05-31-2022 pH (BldV) 7.36 [pH] 7.31-7.42 [facility] Venous blood partial pressur e of carbon dioxide measurementOrdered By: Thompson Hayden on 05-31-2022 CO2 (BldV) [Partial pressure] 48 mm[Hg] 39-55 [facility] Venous blood partial pressur e of oxygen measurementOrdered By: Thompson Hayden on 05-31-2022 Oxygen (BldV) [Partial pressure] 62.0 mm[Hg] 30-50 [facility] XR chest 1V portableon 05-31 XR chest 1V portable [facility] [address] [place], [place] [address] XRay Report Signed Patient: CHARLI PORRAS R#: [id number] : 1950 Acct:[id number] Age/Sex: 72 / M Admit Date: 05/31/22 Loc: ER Attending Dr: Ordering Physician: Thompson Hayden MD Date of Service: 05/31/22 Procedure(s): XR chest 1V portable Accession Number(s): [id number] cc: Thompson Hayden MD INDICATION: Shortness of [...] Signed By: Garcia Reeves MD 05/31/22 1510 Medical Reimbursement Specialist: Normal [facility] ([place]) Aerobic and anaerobic cultur e blood cultureOrdered By: Thompson Hayden on 04-25-2022 Bacteria identified Anaer+Aer cx Nom (Unsp spec) NO GROWTH 5 DAYS [facility] Gabapentin SerPl-sCncon 04-04 Gabapentin [Moles/Vol] 9.4 ug/mL Normal 4.0-16.0 [facility] ([place]) Comment on above: Result Comment: Dete ction Limit = 1.0 Performed at: [address], [place] [id number] 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: Martha Gaming MD, Phone: [phone] Performed By: #### 6 30-4 #### [facility] [address] [place], [place] [address] Reflex Urn Culton 04-24-2022 Bacteria identified Cx Nom (U) ORGANISM ID: 1.1 - Presumptive Callie glabrata [place] Count 50,000-100,000 CFU/ml Normal [facility] ([place]) Comment on above: Performed By: #### 6 30-4 #### [facility] [address] [place], [place] [id number] Urine culture routineOrdered By: Judy Pompura on 04-24-2022 Bacteria identified Cx Nom (U) Presumptive Callie glabrata [facility] ALT (SGPT) ser/plasOrdered B y: Judy Pompura on 04-23-2022 ALT [Catalytic activity/Vol] 39 U/L 10-63 [facility] Absolute lymphocyte countOrd ered By: Judy Pompura on 04-23-2022 Lymphocytes Auto (Unsp spec) [#/Vol] 1.3 10*3/uL 1.10-4.80 [facility] Albumin [Mass/volume] in Ser um or PlasmaOrdered By: Judy Pompura on 04-23-2022 Albumin [Mass/Vol] 3.1 g/dL 3.4-4.8 [facility] Albumin/Globulin [Mass Ratio ] in Serum or PlasmaOrdered By: Judy Pompura on 04-23-2022 Albumin/Globulin [Mass ratio] 0.9 {ratio} 1.1-2.2 [facility] Alkaline phosphatase [Enzyma tic activity/volume] in Serum or PlasmaOrdered By: Judy Pompura on 04-23-2022 ALP [Catalytic activity/Vol] 80 U/L 42-121 [facility] Aspartate aminotransferase [ Enzymatic activity/volume] in Serum or PlasmaOrdered By: Judy Pompura on 04-23-2022 AST [Catalytic activity/Vol] 42 U/L 10-41 [facility] Basophils Auto (Bld) [#/Vol] Ordered By: Judy Pompura on 04-23-2022 Basophils (Bld) [#/Vol] 0.1 10*3/uL 0.00-0.20 [facility] Basophils/100 WBC Auto (Bld) Ordered By: Judy Pompura on 04-23-2022 Basophils/100 WBC (Bld) 1.0 % 0.0-1.5 [facility] Bilirubin.total [Mass/volume ] in Serum or PlasmaOrdered By: Judy Pompura on 04-23-2022 Bilirubin [Mass/Vol] 1.1 mg/dL 0.3-1.5 [facility] CBC W/ Auto Diffon Basophils (Bld) [#/Vol] 0.1 10*3/uL Normal 0.00-0.20 [facility] ([place] Comment on above: Performed By: #### 9 4500-6 #### [facility] [address] [place] [address] Basophils/100 WBC (Bld) 1.0 % Normal 0.0-1.5 [facility] ([place] Comment on above: Performed By: #### 9 4500-6 #### [facility] [address] [place] [address] Eosinophils (Bld) [#/Vol] 0.3 10*3/uL Normal 0.00-0.33 [facility] ([place]) Comment on above: Performed By: #### 9 4500-6 #### [facility] [address] [place] [address] Eosinophils/100 WBC (Bld) 4.7 % High 0.0-3.0 [facility] ([place] Comment on above: Performed By: #### 9 4500-6 #### [facility] [address] [place] [address] Erythrocyte distribution width (RBC) [Ratio] 13.5 % Normal 10.9-14.3 [facility] ([place] Comment on above: Performed By: #### 9 4500-6 #### [facility] [address] [place] [address] Hematocrit (Bld) [Volume fraction] 39.7 % Low 41.0-50.0 [facility] ([place] Comment on above: Performed By: #### 9 4500-6 #### [facility] [address] [place] [address] Hemoglobin (Bld) [Mass/Vol] 13.3 g/dL Low 13.5-16.5 [facility] ([place] Comment on above: Performed By: #### 9 4500-6 #### [facility] [address] [place] [address] Lymphocytes Auto (Unsp spec) [#/Vol] 1.3 10*3/uL Normal 1.10-4.80 [facility] ([place] Comment on above: Performed By: #### 9 4500-6 #### [facility] [address] [place] [address] Lymphocytes/100 WBC (Bld) 18.2 % Low 24.0-44.0 [facility] ([place] Comment on above: Performed By: #### 9 4500-6 #### [facility] [address] [place] [address] MCH (RBC) [Entitic mass] 29.4 pg Normal 28.0-34.0 [facility] ([place] Comment on above: Performed By: #### 9 4500-6 #### [facility] [address] [place] [address] MCHC (RBC) [Mass/Vol] 33.5 g/dL Normal 33.0-37.0 [place] ([place] Comment on above: Performed By: #### 9 4500-6 #### [address] [address] MCV (RBC) [Entitic vol] 88.0 fL Normal 80.0-100.0 [facility] ([place]) Comment on above: Performed By: #### 9 4500-6 #### [address] [address] Monocytes (Bld) [#/Vol] 0.7 10*3/uL Normal 0.20-0.70 [facility] ([place] Comment on above: Performed By: #### 9 4500-6 #### [facility] [address] [place] [address] Monocytes/100 WBC (Bld) 10.1 % High 3.4-9.0 [facility] ([place] Comment on above: Performed By: #### 9 4500-6 #### [address] [address] Neutrophils (Bld) [#/Vol] 4.6 10*3/uL Normal 1.83-8.70 [facility] ([place] Comment on above: Performed By: #### 9 4500-6 #### [address] [address] Neutrophils/100 WBC (Bld) 66.0 % Normal 40.0-74.0 [facility] ([place] Comment on above: Performed By: #### 9 4500-6 #### [facility] [address] [place] [address] Platelet mean volume (Bld) [Entitic vol] 7.6 fL Normal 7.4-10.4 [facility] ([place] Comment on above: Performed By: #### 9 4500-6 #### [address] [address] Platelets (Bld) [#/Vol] 163 10*3/uL Normal 150-450 [facility] ([place] Comment on above: Performed By: #### 9 4500-6 #### [address] [address] RBC (Bld) [#/Vol] 4.51 10*6/uL Normal 4.50-5.50 [facility] ([place] Comment on above: Performed By: #### 9 4500-6 #### [facility] [address] [place] [address] WBC (Bld) [#/Vol] 7.0 10*3/uL Normal 4.5-11.0 [facility] ([place] Comment on above: Performed By: #### 9 4500-6 #### [facility] [address] [place] [address] Carbon dioxide, total [Moles /volume] in Serum or PlasmaOrdered By: Judy Pompura on 04-23-2022 CO2 [Moles/Vol] 23 mmol/L - [facility] Chloride [Moles/volume] in S maricel or PlasmaOrdered By: Judy Pompura on 04-23-2022 Chloride [Moles/Vol] 102 mmol/L 98-107 [facility] Comprehensive metabolic 2000 panelon 04-23-2022 Albumin [Mass/Vol] 3.1 g/dL Low 3.4-4.8 [facility] ([place] Comment on above: Performed By: #### 3 2693-4 #### [facility] [address] [place] [address] Albumin/Globulin [Mass ratio] 0.9 {ratio} Low 1.1-2.2 [facility] ([place] Comment on above: Performed By: #### 3 2693-4 #### [facility] [address] [place] [address] ALP [Catalytic activity/Vol] 80 U/L Normal 42-121 [facility] ([place] Comment on above: Performed By: #### 3 2693-4 #### [facility] [address] [place] [address] ALT [Catalytic activity/Vol] 39 U/L Normal 10-63 [facility] ([place] Comment on above: Performed By: #### 3 2693-4 #### [facility] [address] [place] [address] Anion gap [Moles/Vol] 10.0 mmol/L Normal 3-11 [facility] ([place] Comment on above: Performed By: #### 3 2693-4 #### [facility] [address] [place] [address] AST [Catalytic activity/Vol] 42 U/L High 10-41 [facility] ([place] Comment on above: Performed By: #### 3 2693-4 #### [facility] [address] [place] [address] Bilirubin [Mass/Vol] 1.1 mg/dL Normal 0.3-1.5 [facility] ([place] Comment on above: Performed By: #### 3 2693-4 #### [facility] [address] [place] [address] Calcium [Mass/Vol] 8.5 mg/dL Normal 8.5-10.5 [facility] ([place] Comment on above: Performed By: #### 3 2693-4 #### [facility] [address] [place] [address] Chloride [Moles/Vol] 102 mmol/L Normal 98-107 [facility] ([place] Comment on above: Performed By: #### 3 2693-4 #### [facility] [address] [place] [address] CO2 [Moles/Vol] 23 mmol/L Normal 21-31 [facility] ([place] Comment on above: Performed By: #### 3 2693-4 #### [facility] [address] [place] [address] Creatinine [Moles/Vol] 1.1 mg/dL Normal 0.6-1.3 [facility] ([place] Comment on above: Performed By: #### 3 2693-4 #### [facility] [address] [place] [address] Creatinine and Glomerular filtration rate.predicted panel (S/P/Bld) 80 mL/min Normal >60 [facility] ([place] Comment on above: Performed By: #### 3 2693-4 #### [facility] [address] [place] [address] GFR/1.73 sq M.predicted among non-blacks MDRD (S/P/Bld) [Vol rate/Area] 66 mL/min/{1.73_m2} Normal >60 [facility] ([place] Comment on above: Performed By: #### 3 2693-4 #### [facility] [address] [place] [address] Globulin (S) [Mass/Vol] 3.5 g/dL Normal 1.9-3.9 [facility] ([place] Comment on above: Performed By: #### 3 2693-4 #### [address] [address] Glucose [Mass/Vol] 244 mg/dL High 70-99 [facility] ([place] Comment on above: Performed By: #### 3 2693-4 #### [facility] [address] [place] [address] Potassium [Moles/Vol] 3.8 mmol/L Normal 3.6-5.0 [place] ([place] Comment on above: Performed By: #### 3 2693-4 #### [facility] [address] [place] [address] Protein [Mass/Vol] 6.6 g/dL Normal 5.9-7.8 [facility] ([place] Comment on above: Performed By: #### 3 2693-4 #### [facility] [address] [place] [address] Sodium [Moles/Vol] 135 mmol/L Normal 135-145 [facility] ([place] Comment on above: Performed By: #### 3 2693-4 #### [facility] [address] [place] [address] Urea nitrogen [Mass/Vol] 20 mg/dL Normal 6-20 [facility] ([place] Comment on above: Performed By: #### 3 2693-4 #### [facility] [address] [place] [address] Creatinine and Glomerular fi ltration rate.predicted panel (S/P/Bld)Ordered By: Judy Pompura on 04-23-2022 GFR/1.73 sq M.predicted MDRD (S/P/Bld) [Vol rate/Area] 80 mL/min/{1.73_m2} >60 [facility] Eosinophils Auto (Bld) [#/Vo l]Ordered By: Judy Pompura on 04-23-2022 Eosinophils (Bld) [#/Vol] 0.3 10*3/uL 0.00-0.33 [facility] Eosinophils/100 WBC Auto (Bl d)Ordered By: Judy Pompura on 04-23-2022 Eosinophils/100 WBC (Bld) 4.7 % 0.0-3.0 [facility] Erythrocyte distribution wid th Auto (RBC) [Ratio]Ordered By: Judy Pompura on 04-23-2022 Erythrocyte distribution width (RBC) [Ratio] 13.5 % 10.9-14.3 [facility] Estimated glomerular filtrat ion rate (GFR) non- AmericanOrdered By: Judy Pompura on 04-23-2022 GFR/1.73 sq M.predicted among non-blacks MDRD (S/P/Bld) [Vol rate/Area] 66 mL/min/{1.73_m2} >60 [facility] Glucose Glucometer (BldC) [M ass/Vol]on 04-23-2022 Glucose [Mass/Vol] 214 mg/dL Normal 70-99 [facility] ([place]) Comment on above: Performed By: #### 9 4500-6 #### [facility] [address] [place], [place] [id number] (493) Glucose [Mass/Vol] 360 mg/dL Normal 70-99 [facility] ([place] Comment on above: Performed By: #### 4 1653-7 #### [facility] [address] [place] [address] Glucose Glucometer (BldC) [M ass/Vol]Ordered By: Verito Devi on 04-23-2022 Glucose [Mass/Vol] 214 mg/dL 70-99 [facility] Hematocrit Auto (Bld) [Volum e fraction]Ordered By: Judy Pompmayra on 04-23-2022 Hematocrit (Bld) [Volume fraction] 39.7 % 41.0-50.0 [facility] Hemoglobin A1con 04-23-2022 Average glucose Estimated from glycated hemoglobin (Bld) [Mass/Vol] 255 mg/dL Normal [facility] ([place] Comment on above: Performed By: #### 2 1020-3 #### [facility] [address] [place] [address] HbA1c (Bld) [Mass fraction] 10.5 % High 4.0-6.0 [facility] ([place] Comment on above: Performed By: #### 2 1020-3 #### [facility] [address] [place] [address] Hemoglobin [Mass/volume] in BloodOrdered By: Judy Pompura on 04-23-2022 Hemoglobin (Bld) [Mass/Vol] 13.3 g/dL 13.5-16.5 [facility] Lymphocytes/100 WBC Auto (Bl d)Ordered By: Judy Pompura on 04-23-2022 Lymphocytes/100 WBC (Bld) 18.2 % 24.0-44.0 [facility] MCH Auto (RBC) [Entitic mass ]Ordered By: Judy Pompura on 04-23-2022 MCH (RBC) [Entitic mass] 29.4 pg 28.0-34.0 [facility] MCHC Auto (RBC) [Mass/Vol]Or dered By: Judy Pompura on 04-23-2022 MCHC (RBC) [Mass/Vol] 33.5 g/dL 33.0-37.0 [place] MCV (mean corpuscular volume ) determinationOrdered By: Judy Boo on 04-23-2022 MCV (RBC) [Entitic vol] 88.0 fL 80.0-100.0 [facility] Monocytes Auto (Bld) [#/Vol] Ordered By: Judy Pompura on 04-23-2022 Monocytes (Bld) [#/Vol] 0.7 10*3/uL 0.20-0.70 [facility] Monocytes/100 WBC Auto (Bld) Ordered By: Judy Pompura on 04-23-2022 Monocytes/100 WBC (Bld) 10.1 % 3.4-9.0 [facility] Neutrophils Auto (Bld) [#/Vo l]Ordered By: Judy Pompura on 04-23-2022 Neutrophils (Bld) [#/Vol] 4.6 10*3/uL 1.83-8.70 [facility] Neutrophils/100 WBC Auto (Bl d)Ordered By: Judy Pompura on 04-23-2022 Neutrophils/100 WBC (Bld) 66.0 % 40.0-74.0 [facility] No Panel InformationOrdered By: Judy Boo on 04-23-2022 Anticoagulation Therapy See comment [facility] Comment on above: Suggested Therapy Ra nge: 2.0 - 3.5 Platelet mean volume Auto (B ld) [Entitic vol]Ordered By: Judy Rexura on 04-23-2022 Platelet mean volume (Bld) [Entitic vol] 7.6 fL 7.4-10.4 [facility] Platelet poor plasma interna tional normalized ratio (INR) by coagulation assay (relatOrdered By: Judy Ema on 04-23-2022 INR Coag (PPP) [Relative time] 2.25 {INR} 2.00-3.50 [facility] Platelets Auto (Bld) [#/Vol] Ordered By: Judy Kaushikpura on 04-23-2022 Platelets (Bld) [#/Vol] 163 10*3/uL 150-450 [facility] Potassium [Moles/volume] in Serum or PlasmaOrdered By: Judy Boo on 04-23-2022 Potassium [Moles/Vol] 3.8 mmol/L 3.6-5.0 [place] Prothrombin Time on Coumadin on 04-23-2022 INR Coag (PPP) [Relative time] 2.25 {INR} Normal 2.00-3.50 [facility] ([place] Comment on above: Performed By: #### 6 30-4 #### [facility] [address] [place] [address] RBC Auto (Bld) [#/Vol]Ordere d By: Judy Boo on 04-23-2022 RBC (Bld) [#/Vol] 4.51 10*6/uL 4.50-5.50 [facility] Serum globulin measurement ( mass/volume)Ordered By: Judy Boo on 04-23-2022 Globulin (S) [Mass/Vol] 3.5 g/dL 1.9-3.9 [facility] Serum glucose measurement (m ass/volume)Ordered By: Judy Boo on 04-23-2022 Glucose [Mass/Vol] 244 mg/dL 70-99 [facility] Serum or plasma anion gap de termination (moles/volume)Ordered By: Judy Boo on 04-23-2022 Anion gap [Moles/Vol] 10.0 mmol/L 3-11 [facility] Serum or plasma calcium maricel urement (mass/volume)Ordered By: Judy Boo on 04-23-2022 Calcium [Mass/Vol] 8.5 mg/dL 8.5-10.5 [facility] Serum or plasma creatinine m easurement (moles/volume)Ordered By: Judy Ema on 04-23-2022 Creatinine [Moles/Vol] 1.1 mg/dL 0.6-1.3 [facility] Serum or plasma sodium measu rement (moles/volume)Ordered By: Judy Boo on 04-23-2022 Sodium [Moles/Vol] 135 mmol/L 135-145 [facility] Serum or plasma urea nitroge n measurement (mass/volume)Ordered By: Judy Kaushikpura on 04-23-2022 Urea nitrogen [Mass/Vol] 20 mg/dL 10-21 [facility] Total protein bloodOrdered B y: Judy Kaushikpura on 04-23-2022 Protein [Mass/Vol] 6.6 g/dL 5.9-7.8 [facility] WBC Auto (Bld) [#/Vol]Ordere d By: Judy Pompura on 04-23-2022 WBC (Bld) [#/Vol] 7.0 10*3/uL 4.5-11.0 [facility] Ammonia Spec-mCncon 04-22-20 Ammonia (Unsp spec) [Mass/Vol] 16 umol/L Normal [facility] ([place]) Comment on above: Performed By: #### 6 30-4 #### [facility] [address] [place], [place] [id number] (309) Ammonia measurement (mass/vo lume)Ordered By: Judy Pompura on 04-22-2022 Ammonia (Unsp spec) [Mass/Vol] 16 umol/L [facility] Appearance urOrdered By: Pat ricia Kaushikpura on 04-22-2022 Appearance (U) Clear [facility] Automated urine sediment bud ding yeast count by microscopy (number/high power field)Ordered By: Judy Kaushikpura on 04-22-2022 Yeast.budding LM.HPF (Urine sed) [#/Area] Large /HPF NONE SEEN [facility] Automated urine white blood cell countOrdered By: Judy Pompura on 04-22-2022 WBC Auto (U) [#/Vol] >100 /HPF NONE SEEN [facility] Basic Metabolic Panelon 04-04 Anion gap [Moles/Vol] 10.0 mmol/L Normal - [facility] ([place]) Comment on above: Performed By: #### 6 30-4 #### [facility] [address] [place] [address] Calcium [Mass/Vol] 8.4 mg/dL Low 8.5-10.5 [facility] ([place] Comment on above: Performed By: #### 6 30-4 #### [facility] [address] [place] [address] Chloride [Moles/Vol] 102 mmol/L Normal 98-107 [facility] ([place] Comment on above: Performed By: #### 6 30-4 #### [facility] [address] [place] [address] CO2 [Moles/Vol] 20 mmol/L Low 21-31 [facility] ([place] Comment on above: Performed By: #### 6 30-4 #### [facility] [address] [place] [address] Creatinine [Moles/Vol] 1.2 mg/dL Normal 0.6-1.3 [facility] ([place] Comment on above: Performed By: #### 6 30-4 #### [facility] [address] [place] [address] Creatinine and Glomerular filtration rate.predicted panel (S/P/Bld) 72 mL/min Normal >60 [facility] ([place] Comment on above: Performed By: #### 6 30-4 #### [facility] [address] [place] [address] GFR/1.73 sq M.predicted among non-blacks MDRD (S/P/Bld) [Vol rate/Area] 60 mL/min/{1.73_m2} Normal >60 [facility] ([place] Comment on above: Performed By: #### 6 30-4 #### [facility] [address] [place] [address] Glucose [Mass/Vol] 255 mg/dL High 70-99 [facility] ([place] Comment on above: Performed By: #### 6 30-4 #### [facility] [address] [place] [address] Potassium [Moles/Vol] 3.3 mmol/L Low 3.6-5.0 [place] ([place] Comment on above: Performed By: #### 6 30-4 #### [facility] [address] [place] [address] Sodium [Moles/Vol] 132 mmol/L Low 135-145 [facility] ([place] Comment on above: Performed By: #### 6 30-4 #### [facility] [address] [place] [address] Urea nitrogen [Mass/Vol] 18 mg/dL Normal 6-20 [facility] ([place] Comment on above: Performed By: #### 6 30-4 #### [address] [address] CBC W/ Auto Diffon 2 Basophils (Bld) [#/Vol] 0.1 10*3/uL Normal 0.00-0.20 [facility] ([place] Comment on above: Performed By: #### 6 30-4 #### [facility] [address] [place] [address] Basophils/100 WBC (Bld) 0.9 % Normal 0.0-1.5 [facility] ([place] Comment on above: Performed By: #### 6 30-4 #### [facility] [address] [place] [address] Eosinophils (Bld) [#/Vol] 0.2 10*3/uL Normal 0.00-0.33 [facility] ([place] Comment on above: Performed By: #### 6 30-4 #### [facility] [address] [place] [address] Eosinophils/100 WBC (Bld) 2.8 % Normal 0.0-3.0 [facility] ([place] Comment on above: Performed By: #### 6 30-4 #### [facility] [address] [place] [address] Erythrocyte distribution width (RBC) [Ratio] 13.5 % Normal 10.9-14.3 [facility] ([place] Comment on above: Performed By: #### 6 30-4 #### [facility] [address] [place] [address] Hematocrit (Bld) [Volume fraction] 39.4 % Low 41.0-50.0 [facility] ([place] Comment on above: Performed By: #### 6 30-4 #### [facility] [address] [place] [address] Hemoglobin (Bld) [Mass/Vol] 13.1 g/dL Low 13.5-16.5 [facility] ([place] Comment on above: Performed By: #### 6 30-4 #### [facility] [address] [place] [address] Lymphocytes Auto (Unsp spec) [#/Vol] 1.1 10*3/uL Normal 1.10-4.80 [facility] ([place] Comment on above: Performed By: #### 6 30-4 #### [facility] [address] [place] [address] Lymphocytes/100 WBC (Bld) 15.1 % Low 24.0-44.0 [facility] ([place] Comment on above: Performed By: #### 6 30-4 #### [facility] [address] [place] [address] MCH (RBC) [Entitic mass] 29.1 pg Normal 28.0-34.0 [facility] ([place] Comment on above: Performed By: #### 6 30-4 #### [address] [address] MCHC (RBC) [Mass/Vol] 33.2 g/dL Normal 33.0-37.0 [place] ([place] Comment on above: Performed By: #### 6 30-4 #### [address] [place] [address] MCV (RBC) [Entitic vol] 87.7 fL Normal 80.0-100.0 [facility] ([place] Comment on above: Performed By: #### 6 30-4 #### [facility] [address] [place] [address] Monocytes (Bld) [#/Vol] 0.8 10*3/uL High 0.20-0.70 [facility] ([place] Comment on above: Performed By: #### 6 30-4 #### [facility] [address] [place] [address] Monocytes/100 WBC (Bld) 11.9 % High 3.4-9.0 [facility] ([place] Comment on above: Performed By: #### 6 30-4 #### [facility] [address] [place] [address] Neutrophils (Bld) [#/Vol] 4.8 10*3/uL Normal 1.83-8.70 [facility] ([place] Comment on above: Performed By: #### 6 30-4 #### [facility] [address] [place] [address] Neutrophils/100 WBC (Bld) 69.3 % Normal 40.0-74.0 [facility] ([place] Comment on above: Performed By: #### 6 30-4 #### [facility] [address] [place] [address] Platelet mean volume (Bld) [Entitic vol] 6.5 fL Low 7.4-10.4 [facility] ([place] Comment on above: Performed By: #### 6 30-4 #### [address] [address] Platelets (Bld) [#/Vol] 137 10*3/uL Low 150-450 [facility] ([place] Comment on above: Performed By: #### 6 30-4 #### [facility] [address] [place] [address] RBC (Bld) [#/Vol] 4.49 10*6/uL Low 4.50-5.50 [facility] ([place] Comment on above: Performed By: #### 6 30-4 #### [facility] [address] [place] [address] WBC (Bld) [#/Vol] 6.9 10*3/uL Normal 4.5-11.0 [facility] ([place] Comment on above: Performed By: #### 6 30-4 #### [facility] [address] [place] [address] Detection in urine of either or both bilirubin and urobilinogenOrdered By: Judy Boo on 04-22-2022 Bilirubin+Urobilinogen Ql (U) Negative NEGATIVE [facility] Folate SerPl-mCncon 04-22-20 Folate [Mass/Vol] ng/mL Normal >5.9 [facility] ([place] Comment on above: Performed By: #### 3 2693-4 #### [facility] [address] [place] [address] Glucose Glucometer (BldC) [M ass/Vol]on 04-22-2022 Glucose [Mass/Vol] 314 mg/dL Normal 70-99 [facility] ([place] Comment on above: Performed By: #### 4 1653-7 #### [facility] [address] [place] [address] Glucose [Mass/Vol] 171 mg/dL Normal 70-99 [facility] ([place] Comment on above: Performed By: #### 3 2693-4 #### [facility] [address] [place] [address] Glucose [Mass/Vol] 292 mg/dL Normal 70-99 [facility] ([place] Comment on above: Performed By: #### C D #### [facility] [address] [place] [address] Glucose [Mass/Vol] 199 mg/dL Normal 70-99 [facility] ([place] Comment on above: Performed By: #### 3 2693-4 #### [facility] [address] [place] [address] Glucose [Mass/volume] in Uri ne by Automated test stripOrdered By: Judy Boo on 04-22-2022 Glucose Auto test strip (U) [Mass/Vol] >=2000 mg/dL NEGATIVE [facility] Laboratory - Hematology and Cell countsOrdered By: Mary Beth Landaverde on 04-22-2022 HbA1c (Bld) [Mass fraction] 10.5 % 4.0-6.0 [facility] Lactate (Bld) [Moles/Vol]on 04-22-2022 Lactate [Moles/Vol] 1.1 mmol/L Normal 0.5-2.0 [facility] ([place] Comment on above: Performed By: #### 2 1020-3 #### [facility] [address] [place] [address] Lactate (Bld) [Moles/Vol]Ord ered By: Mary Beth Landaverde on 04-22-2022 Lactate [Moles/Vol] 1.1 mmol/L 0.5-2.0 [facility] Lipid Panelon 04-22-2022 Cholesterol [Mass/Vol] 99 mg/dL Low 140-200 [facility] ([place] Comment on above: Performed By: #### 3 2693-4 #### [facility] [facility] [address] [place] [address] Cholesterol in HDL [Mass/Vol] 23 mg/dL Low 29-71 [facility] ([place]) Comment on above: Performed By: #### 3 2693-4 #### [facility] [address] [place] [address] Cholesterol in LDL [Mass/Vol] 46 mg/dL Normal <129 [facility] ([place] Comment on above: Performed By: #### 3 2693-4 #### [facility] [address] [place] [address] Cholesterol in LDL/Cholesterol in HDL [Mass ratio] 2.0 {ratio} Normal [facility] ([place] Comment on above: Result Comment: MEN WOMEN 1/2 Average Risk 1.00 1.47 Average Risk 3.55 3.22 2X Average Risk 6.25 5.03 3X Average Risk 7.99 6.14 Performed By: #### 3 2693-4 #### [address] [address] Triglyceride [Mass/Vol] 189 mg/dL Normal 41-189 [facility] ([place]) Comment on above: Performed By: #### 3 2693-4 #### [address] [id number] MR angio head wo conon 04-22 MR angio head wo con [address] [address] Magnetic Resonance Report Signed Patient: CHARLI PORRAS#: [id number] : 1950 Acct:[id number] Age/Sex: 71 / M Admit Date: 04/19/22 Loc: 2T 2004-[address]: Verito Devi MD Ordering Physician: Mary Beth Landaverde NP Date of Service: 04/22/22 Procedure(s): MR angio head wo con; MR angio neck wo con Accession Number(s): [id number]; [id number] cc: Mary Beth Landaverde NP PHYSICIAN INDICATIONS: Pain 3T MR Angiogram Head: TECHNIQUE: 3T MRI. 3-D ddma-ln-bjhnhn images were obtained to the head without [...] MR Angiogram Neck: TECHNIQUE: 3T MRI. 3-D uelx-so-cxrlhv MRI images of the neck were obtained [...] Signed By: Yunior Hickey MD 04/22/22 1538 Medical Reimbursement Specialist: [facility] ([place]) MR angio neck wo conon 04-22 MR angio neck wo con [facility] [address] [place] [address] Magnetic Resonance Report Signed Patient: CHARLI PORRAS R#: [id number] : 1950 Acct:[id number] Age/Sex: 71 / M Admit Date: 04/19/22 Loc: 2T 2004-[address]: Verito Devi MD Ordering Physician: Mary Beth Landaverde NP Date of Service: 04/22/22 Procedure(s): MR angio head wo con; MR angio neck wo con Accession Number(s): [id number]; [id number] cc: Mary Beth Landaverde NP PHYSICIAN INDICATIONS: Pain 3T MR Angiogram Head: TECHNIQUE: 3T MRI. 3-D ahys-uh-zamoel images were obtained to the head without [...] MR Angiogram Neck: TECHNIQUE: 3T MRI. 3-D kahd-hg-mhwmxu MRI images of the neck were obtained [...] aneurysm. Dictated By: Yunior Hickey MD DD/ 37 Signed By: Yunior Hickey MD 04/22/221537 Medical Reimbursement Specialist: [facility] ([place]) MR brain wo conon 04-22-2022 MR brain wo con [facility] [address] [place] [address] Magnetic Resonance Report Signed Patient: CHARLI PORRAS R#: [id number] : 1950 Acct:[id number] Age/Sex: 71 / M Admit Date: 04/19/22 Loc: 2T 2004- Attending Dr: Verito Devi MD Ordering Physician: Mary Beth Landaverde NP Date of Service: 04/22/22 Procedure(s): MR brain wo con Accession Number(s): [id number] cc: Mary Beth Landaverde NP PHYSICIAN INDICATIONS: [...] Signed By: Yunior Hickey MD 04/22/22 152 Medical Reimbursement Specialist: [facility] Normal [facility] ([place] Mucus [Presence] in Urine by AutomatedOrdered By: Judy Boo on 04-22-2022 Mucus Auto Ql (U) Small /HPF NONE SEEN [facility] No Panel InformationOrdered By: Judy Boo on 04-22-2022 Urine Culture Reflexed Reflexed to culture [facility] Comment on above: A Urine Culture has been added to this specimen. Prothrombin Time on Coumadin on 04-22-2022 INR Coag (PPP) [Relative time] 2.74 {INR} Normal 2.00-3.50 [facility] ([place]) Comment on above: Performed By: #### 9 4500-6 #### [facility] [address] [place] [address] RBC LM Ql (Urine sed)Ordered By: Judy Boo on 04-22-2022 RBC Ql (U) 11-20 /HPF NONE SEEN [facility] Serum or plasma cholesterol in LDL measurement (mass/volume)Ordered By: Mary Beth Landaverde on 04-22-2022 Cholesterol in LDL [Mass/Vol] 46 mg/dL <128 [facility] Serum or plasma cholesterol measurement (mass/volume)Ordered By: Mary Beth Landaverde on 04-22-2022 Cholesterol [Mass/Vol] 99 mg/dL 140-200 [facility] Serum or plasma folate measu rement (mass/volume)Ordered By: Mary Beth Landaverde on 04-22-2022 Folate [Mass/Vol] ng/mL >6.0 [facility] Serum or plasma gabapentin m easurementOrdered By: Mary Beth Landaverde on 04-22-2022 Gabapentin [Moles/Vol] 9.4 ug/mL 4.0-16.0 [facility] Comment on above: Detection Limit = 1. 0Performed at: [facility] [address] [id number] Director: Martha Gaming MD, Phone: [phone] Serum or plasma high density lipoprotein (HDL) cholesterol measurementOrdered By: Mary Beth Landaverde on 04-22-2022 Cholesterol in HDL [Mass/Vol] 23 mg/dL 29-71 [facility] Serum or plasma low density lipoprotein (LDL) cholesterol/high density lipoprotein (HOrdered By: Mary Beth Landaverde on 04-22-2022 Cholesterol in LDL/Cholesterol in HDL [Mass ratio] 2.0 {ratio} [facility] Comment on above: MEN WOMEN1/2 Average Risk 1.00 1.47Average Risk 3.55 3.222X Average Risk 6.25 5.033X Average Risk 7.99 6.14 Serum or plasma thyroid stim ulating hormone (TSH) measurementOrdered By: Mary Beth Landaverde on 04-22-2022 TSH Qn 3.00 uIU/mL 0.34-5.60 [facility] Serum or plasma triglyceride measurement (mass/volume)Ordered By: Mary Beth Landaverde on 04-22-2022 Triglyceride [Mass/Vol] 189 mg/dL 41-189 [facility] Specific gravity of UrineOrd ered By: Judy Boo on 04-22-2022 Specific gravity (U) [Rel density] 1.015 1.001-1.035 [facility] TSH SerPl-aCncon 04-22-2022 TSH Qn 3.00 uIU/mL Normal 0.34-5.60 [facility] ([place]) Comment on above: Performed By: #### 3 2693-4 #### [facility] [address] [place] [address] Transitional cells detection in urine sediment by light microscopyOrdered By: Judy Boo on 04-22-2022 Transitional cells LM Ql (Urine sed) Not Reportable [facility] Urinalysis complete panel (U )on 04-22-2022 Mucus Auto Ql (U) SMALL Normal NONE SEEN [facility] ([place] Comment on above: Order Comment: Urine Collect Straight Cath Performed By: #### 4 1653-7 #### [facility] [address] [place] [address] RBC Ql (U) 11-20 Normal NONE SEEN [facility] ([place] Comment on above: Order Comment: Urine Collect Straight Cath Performed By: #### 4 1653-7 #### [facility] [address] [place] [address] WBC Auto (U) [#/Vol] >100 Normal NONE SEEN [facility] ([place]) Comment on above: Order Comment: Urine Collect Straight Cath Performed By: #### 4 1653-7 #### [facility] [address] [place] [address] Yeast.budding LM.HPF (Urine sed) [#/Area] LARGE Normal NONE SEEN [facility] ([place] Comment on above: Order Comment: Urine Collect Straight Cath Performed By: #### 4 1653-7 #### [facility] [address] [place] [address] Urine blood detectionOrdered By: Judy Pompmayra on 04-22-2022 RBC Ql (U) Small NEGATIVE [facility] Urine colorOrdered By: Karinari magdaleno Kaushikpmayra on 04-22-2022 Color (U) Yellow [facility] Urine ketones detectionOrder ed By: Judy Pompura on 04-22-2022 Ketones Ql (U) 15 mg/dL NEGATIVE [facility] Urine leukocytes detection b y microscopyOrdered By: Judy Pompura on 04-22-2022 WBC Visual Ql (U) Moderate NEGATIVE [facility] Urine nitrate detectionOrder ed By: Judy Pompura on 04-22-2022 Nitrate Ql (U) Negative NEGATIVE [facility] Urine pHOrdered By: Judy Pompura on 04-22-2022 pH (U) 5.0 [pH] 4.6-8.0 [facility] Urine protein detection by a utomated test stripOrdered By: Judy Boo on 04-22-2022 Protein Auto test strip Ql (U) Negative NEGATIVE [facility] Vit B12 SerPl-mCncon 022 Cobalamin (Vitamin B12) [Mass/Vol] 787 pg/mL Normal 180-914 [facility] ([place]) Comment on above: Performed By: #### 3 2693-4 #### [facility] [address] [place], [place] [address] Vitamin B12 ser/plasOrdered By: Mary Beth Landaverde on 04-22-2022 Cobalamin (Vitamin B12) [Mass/Vol] 787 pg/mL 180-914 [facility] Whole blood estimated averag e glucose determination by estimation from glycated hemoglobin (mass/voluOrdered By: Mary Beth Landaverde on 04-22-2022 Average glucose Estimated from glycated hemoglobin (Bld) [Mass/Vol] 255 mg/dL [facility] XR chest 2Von 04-22-2022 XR chest 2V [facility] [address] [place], [place] [address] XRay Report Signed Patient: CHARLI PORRAS#: [id number] : 1950 Acct:[id number] Age/Sex: 71 / M Admit Date: 04/19/22 Loc: 3T 3026-[address]: Verito Devi MD Ordering Physician: Mary Beth Landaverde NP Date of Service: 04/22/22 Procedure(s): XR chest 2V Accession Number(s): [id number] cc: Mary Beth Landaverde NP PHYSICIAN INDICATIONS: SOB TECHNIQUE: Portable view. FINDINGS: The heart size is normal. The lung seay are clear. No infiltrates are identified. No pleural effusions are present. Postsurgical changes lower cervical spine. IMPRESSION: Chest, Portable: 1. No active pulmonary disease. No change from 04/19/2022. Dictated By: Yunior Hickey MD DD/ 1444 Signed By: Yunior Hickey MD 04/22/22 1444 Medical Reimbursement Specialist: IBRAHIMA Greenberg [facility] ([place]) Blood prothrombin time (PT) by coagulation assayOrdered By: Verito Devi on 04-21-2022 PT Coag (Bld) [Time] 26.2 s 9.5-12.9 [facility] CBC W/ Auto Diffon Basophils (Bld) [#/Vol] 0.0 10*3/uL Normal 0.00-0.20 [facility] ([place] Comment on above: Performed By: #### 9 4500-6 #### [facility] [address] [place] [address] Basophils/100 WBC (Bld) 0.5 % Normal 0.0-1.5 [facility] ([place] Comment on above: Performed By: #### 9 4500-6 #### [facility] [address] [place] [address] Eosinophils (Bld) [#/Vol] 0.1 10*3/uL Normal 0.00-0.33 [facility] ([place] Comment on above: Performed By: #### 9 4500-6 #### [facility] [address] [place] [address] Eosinophils/100 WBC (Bld) 1.5 % Normal 0.0-3.0 [facility] ([place] Comment on above: Performed By: #### 9 4500-6 #### [facility] [address] [place] [address] Erythrocyte distribution width (RBC) [Ratio] 13.2 % Normal 10.9-14.3 [facility] ([place] Comment on above: Performed By: #### 9 4500-6 #### [facility] [address] [place] [address] Hematocrit (Bld) [Volume fraction] 39.2 % Low 41.0-50.0 [facility] ([place] Comment on above: Performed By: #### 9 4500-6 #### [address] [address] Hemoglobin (Bld) [Mass/Vol] 13.4 g/dL Low 13.5-16.5 [facility] ([place] Comment on above: Performed By: #### 9 4500-6 #### [facility] [address] [place] [address] Lymphocytes Auto (Unsp spec) [#/Vol] 1.1 10*3/uL Normal 1.10-4.80 [facility] ([place] Comment on above: Performed By: #### 9 4500-6 #### [address] [address] Lymphocytes/100 WBC (Bld) 12.3 % Low 24.0-44.0 [facility] ([place] Comment on above: Performed By: #### 9 4500-6 #### [address] [address] MCH (RBC) [Entitic mass] 29.9 pg Normal 28.0-34.0 [facility] ([place] Comment on above: Performed By: #### 9 4500-6 #### [facility] [address] [place] [address] MCHC (RBC) [Mass/Vol] 34.1 g/dL Normal 33.0-37.0 [place] ([place] Comment on above: Performed By: #### 9 4500-6 #### [facility] [address] [place] [address] MCV (RBC) [Entitic vol] 87.7 fL Normal 80.0-100.0 [facility] ([place] Comment on above: Performed By: #### 9 4500-6 #### [facility] [address] [place] [address] Monocytes (Bld) [#/Vol] 1.0 10*3/uL High 0.20-0.70 [facility] ([place] Comment on above: Performed By: #### 9 4500-6 #### [address] [address] Monocytes/100 WBC (Bld) 11.2 % High 3.4-9.0 [facility] ([place] Comment on above: Performed By: #### 9 4500-6 #### [facility] [address] [place] [address] Neutrophils (Bld) [#/Vol] 6.7 10*3/uL Normal 1.83-8.70 [facility] ([place] Comment on above: Performed By: #### 9 4500-6 #### [facility] [address] [place] [address] Neutrophils/100 WBC (Bld) 74.5 % High 40.0-74.0 [facility] ([place] Comment on above: Performed By: #### 9 4500-6 #### [address] [address] Platelet mean volume (Bld) [Entitic vol] 6.7 fL Low 7.4-10.4 [facility] ([place] Comment on above: Performed By: #### 9 4500-6 #### [facility] [address] [place] [address] Platelets (Bld) [#/Vol] 136 10*3/uL Low 150-450 [facility] ([place] Comment on above: Performed By: #### 9 4500-6 #### [facility] [address] [place] [address] RBC (Bld) [#/Vol] 4.47 10*6/uL Low 4.50-5.50 [facility] ([place] Comment on above: Performed By: #### 9 4500-6 #### [address] [address] WBC (Bld) [#/Vol] 9.0 10*3/uL Normal 4.5-11.0 [facility] ([place] Comment on above: Performed By: #### 9 4500-6 #### [facility] [address] [place] [address] Comprehensive metabolic 2000 panelon 04-21-2022 Albumin [Mass/Vol] 3.1 g/dL Low 3.4-4.8 [facility] ([place] Comment on above: Performed By: #### 4 1653-7 #### [facility] [address] [place] [address] Albumin/Globulin [Mass ratio] 0.9 {ratio} Low 1.1-2.2 [facility] ([place] Comment on above: Performed By: #### 4 1653-7 #### [facility] [address] [place] [address] ALP [Catalytic activity/Vol] 73 U/L Normal 42-121 [facility] ([place] Comment on above: Performed By: #### 4 1653-7 #### [address] [address] ALT [Catalytic activity/Vol] 25 U/L Normal 10-63 [facility] ([place] Comment on above: Performed By: #### 4 1653-7 #### [facility] [address] [place] [address] Anion gap [Moles/Vol] 9.0 mmol/L Normal 3-11 [place] ([place] Comment on above: Performed By: #### 4 1653-7 #### [facility] [address] [place] [address] AST [Catalytic activity/Vol] 28 U/L Normal 10-41 [facility] ([place] Comment on above: Performed By: #### 4 1653-7 #### [facility] [address] [place] [address] Bilirubin [Mass/Vol] 1.0 mg/dL Normal 0.3-1.5 [facility] ([place] Comment on above: Performed By: #### 4 1653-7 #### [facility] [address] [place] [address] Calcium [Mass/Vol] 8.1 mg/dL Low 8.5-10.5 [facility] ([place] Comment on above: Performed By: #### 4 1653-7 #### [facility] [address] [place] [address] Chloride [Moles/Vol] 101 mmol/L Normal 98-107 [facility] ([place] Comment on above: Performed By: #### 4 1653-7 #### [facility] [address] [place] [address] CO2 [Moles/Vol] 22 mmol/L Normal 21-31 [facility] ([place] Comment on above: Performed By: #### 4 1653-7 #### [facility] [address] [place] [address] Creatinine [Moles/Vol] 1.1 mg/dL Normal 0.6-1.3 [facility] ([place] Comment on above: Performed By: #### 4 1653-7 #### [facility] [address] [place] [address] Creatinine and Glomerular filtration rate.predicted panel (S/P/Bld) 80 mL/min Normal >60 [facility] ([place] Comment on above: Performed By: #### 4 1653-7 #### [facility] [address] [place] [address] GFR/1.73 sq M.predicted among non-blacks MDRD (S/P/Bld) [Vol rate/Area] 66 mL/min/{1.73_m2} Normal >60 [facility] ([place] Comment on above: Performed By: #### 4 1653-7 #### [facility] [address] [place] [address] Globulin (S) [Mass/Vol] 3.6 g/dL Normal 1.9-3.9 [facility] ([place] Comment on above: Performed By: #### 4 1653-7 #### [facility] [address] [place] [address] Glucose [Mass/Vol] 251 mg/dL High 70-99 [facility] ([place] Comment on above: Performed By: #### 4 1653-7 #### [facility] [address] [place] [address] Potassium [Moles/Vol] 3.9 mmol/L Normal 3.6-5.0 [place] ([place] Comment on above: Performed By: #### 4 1653-7 #### [facility] [address] [place] [address] Protein [Mass/Vol] 6.7 g/dL Normal 5.9-7.8 [facility] ([place] Comment on above: Performed By: #### 4 1653-7 #### [facility] [address] [place] [address] Sodium [Moles/Vol] 132 mmol/L Low 135-145 [facility] ([place] Comment on above: Performed By: #### 4 1653-7 #### [facility] [address] [place] [address] Urea nitrogen [Mass/Vol] 21 mg/dL High 6-20 [facility] ([place] Comment on above: Performed By: #### 4 1653-7 #### [facility] [address] [place] [address] Glucose Glucometer (BldC) [M ass/Vol]on 04-21-2022 Glucose [Mass/Vol] 209 mg/dL Normal 70-99 [facility] ([place] Comment on above: Performed By: #### 4 1653-7 #### [facility] [address] [place] [address] Glucose [Mass/Vol] 195 mg/dL Normal 70-99 [facility] ([place] Comment on above: Performed By: #### 6 30-4 #### [facility] [address] [place] [address] Glucose [Mass/Vol] 263 mg/dL Normal 70-99 [facility] ([place] Comment on above: Performed By: #### 4 1653-7 #### [facility] [address] [place] [address] Glucose [Mass/Vol] 245 mg/dL Normal 70-99 [facility] ([place] Comment on above: Performed By: #### C D #### [facility] [address] [place] [address] Glucose [Mass/Vol] 235 mg/dL Normal 70-99 [facility] ([place] Comment on above: Performed By: #### 9 4500-6 #### [facility] [address] [place] [address] Platelet poor plasma interna tional normalized ratio (INR) by coagulation assay (relatOrdered By: Verito Devi on 04-21-2022 INR Coag (PPP) [Relative time] 2.32 {INR} 0.80-2.00 [facility] Prothrombin Time INR w/o Cou mon 04-21-2022 PT Coag (Bld) [Time] 26.2 s High 9.5-12.9 [facility] ([place] Comment on above: Performed By: #### 4 1653-7 #### [facility] [address] [place] [address] Prothrombin Time on Coumadin on 04-21-2022 INR Coag (PPP) [Relative time] 2.32 {INR} High 0.80-2.00 [facility] ([place] Comment on above: Performed By: #### 9 4500-6 #### [facility] [address] [place] [address] Performed By: #### 4 1653-7 #### [facility] [address] [place] [address] Reflex Urn Culton 04-21-2022 Bacteria identified Cx Nom (U) ORGANISM ID: 1.1 - Presumptive Callie glabrata [place] Count 50,000-100,000 CFU/ml Normal [facility] ([place] Comment on above: Performed By: #### 4 1653-7 #### [facility] [address] [place] [address] Basic Metabolic Panelon 04-03 Anion gap [Moles/Vol] 11.0 mmol/L Normal 3-11 [facility] ([place] Comment on above: Performed By: #### 6 30-4 #### [facility] [address] [place] [address] Calcium [Mass/Vol] 8.3 mg/dL Low 8.5-10.5 [facility] ([place] Comment on above: Performed By: #### 6 30-4 #### [facility] [address] [place] [address] Chloride [Moles/Vol] 100 mmol/L Normal 98-107 [facility] ([place] Comment on above: Performed By: #### 6 30-4 #### [facility] [address] [place] [address] CO2 [Moles/Vol] 21 mmol/L Normal 21-31 [facility] ([place] Comment on above: Performed By: #### 6 30-4 #### [facility] [address] [place] [address] Creatinine [Moles/Vol] 1.4 mg/dL High 0.6-1.3 [facility] ([place] Comment on above: Performed By: #### 6 30-4 #### [facility] [address] [place] [address] Creatinine and Glomerular filtration rate.predicted panel (S/P/Bld) 60 mL/min Normal >60 [facility] ([place] Comment on above: Performed By: #### 6 30-4 #### [facility] [address] [place] [address] GFR/1.73 sq M.predicted among non-blacks MDRD (S/P/Bld) [Vol rate/Area] 50 mL/min/{1.73_m2} Normal >60 [facility] ([place] Comment on above: Performed By: #### 6 30-4 #### [facility] [address] [place] [address] Glucose [Mass/Vol] 203 mg/dL High 70-99 [facility] ([place] Comment on above: Performed By: #### 6 30-4 #### [facility] [address] [place] [address] Potassium [Moles/Vol] 4.0 mmol/L Normal 3.6-5.0 [place] ([place] Comment on above: Performed By: #### 6 30-4 #### [facility] [address] [place] [address] Sodium [Moles/Vol] 132 mmol/L Low 135-145 [facility] ([place] Comment on above: Performed By: #### 6 30-4 #### [facility] [address] [place] [address] Urea nitrogen [Mass/Vol] 21 mg/dL High 6-20 [facility] ([place] Comment on above: Performed By: #### 6 30-4 #### [facility] [address] [place] [address] C. diff Toxin Assayon 2021 C. difficile glutamate dehydrogenase and toxins A+B IA.rapid Ql (Stl) Negative Normal [facility] ([place] Comment on above: Result Comment: Nega tive for toxigenic C. difficile Performed By: #### 2 1020-3 #### [facility] [address] [place] [address] CBC W/ Auto Diffon Basophils (Bld) [#/Vol] 0.0 10*3/uL Normal 0.00-0.20 [facility] ([place] Comment on above: Performed By: #### 2 1020-3 #### [facility] [address] [place] [address] Basophils/100 WBC (Bld) 0.3 % Normal 0.0-1.5 [facility] ([place] Comment on above: Performed By: #### 2 1020-3 #### [facility] [address] [place] [address] Eosinophils (Bld) [#/Vol] 0.0 10*3/uL Normal 0.00-0.33 [facility] ([place] Comment on above: Performed By: #### 2 1020-3 #### [address] [address] Eosinophils/100 WBC (Bld) 0.4 % Normal 0.0-3.0 [facility] ([place] Comment on above: Performed By: #### 2 1020-3 #### [facility] [facility] [address] [place] [address] Erythrocyte distribution width (RBC) [Ratio] 13.5 % Normal 10.9-14.3 [facility] ([place]) Comment on above: Performed By: #### 2 1020-3 #### [facility] [address] [place] [address] Hematocrit (Bld) [Volume fraction] 38.5 % Low 41.0-50.0 [facility] ([place] Comment on above: Performed By: #### 2 1020-3 #### [facility] [address] [place] [address] Hemoglobin (Bld) [Mass/Vol] 12.9 g/dL Low 13.5-16.5 [facility] ([place] Comment on above: Performed By: #### 2 1020-3 #### [facility] [address] [place] [address] Lymphocytes Auto (Unsp spec) [#/Vol] 1.0 10*3/uL Low 1.10-4.80 [facility] ([place] Comment on above: Performed By: #### 2 1020-3 #### [address] [address] Lymphocytes/100 WBC (Bld) 12.1 % Low 24.0-44.0 [facility] ([place] Comment on above: Performed By: #### 2 1020-3 #### [facility] [address] [place] [address] MCH (RBC) [Entitic mass] 29.7 pg Normal 28.0-34.0 [facility] ([place] Comment on above: Performed By: #### 2 1020-3 #### [facility] [address] [place] [address] MCHC (RBC) [Mass/Vol] 33.6 g/dL Normal 33.0-37.0 [place] ([place] Comment on above: Performed By: #### 2 1020-3 #### [address] [address] MCV (RBC) [Entitic vol] 88.4 fL Normal 80.0-100.0 [facility] ([place]) Comment on above: Performed By: #### 2 1020-3 #### [address] [address] Monocytes (Bld) [#/Vol] 1.0 10*3/uL High 0.20-0.70 [facility] ([place] Comment on above: Performed By: #### 2 1020-3 #### [address] [address] Monocytes/100 WBC (Bld) 11.5 % High 3.4-9.0 [facility] ([place] Comment on above: Performed By: #### 2 1020-3 #### [address] [address] Neutrophils (Bld) [#/Vol] 6.4 10*3/uL Normal 1.83-8.70 [facility] ([place] Comment on above: Performed By: #### 2 1020-3 #### [address] [address] Neutrophils/100 WBC (Bld) 75.7 % High 40.0-74.0 [facility] ([place] Comment on above: Performed By: #### 2 1020-3 #### [address] [address] Platelet mean volume (Bld) [Entitic vol] 6.8 fL Low 7.4-10.4 [facility] ([place] Comment on above: Performed By: #### 2 1020-3 #### [address] [address] Platelets (Bld) [#/Vol] 133 10*3/uL Low 150-450 [facility] ([place] Comment on above: Performed By: #### 2 1020-3 #### [facility] [address] [place] [address] RBC (Bld) [#/Vol] 4.36 10*6/uL Low 4.50-5.50 [facility] ([place] Comment on above: Performed By: #### 2 1020-3 #### [facility] [address] [place] [address] WBC (Bld) [#/Vol] 8.5 10*3/uL Normal 4.5-11.0 [facility] ([place] Comment on above: Performed By: #### 2 1020-3 #### [facility] [address] [place] [address] CO2 (BldV) [Moles/Vol]Ordere d By: Judy Boo on 04-20-2022 CO2 [Moles/Vol] 21.3 mmol/L [facility] CT abdomen pelvis wo conon 1 06-21-2021 CT abdomen pelvis wo [facility] [address] [place] [address] CT Scan Report Signed Patient: CHARLI PORRAS#: [id number] : 1950 Acct:[id number] Age/Sex: 71 / M Admit Date: 04/19/22 Loc: 3026-[address]: Verito Devi MD Ordering Physician: Judy Boo MD Date of Service: 04/20/22 Procedure(s): CT abdomen pelvis wo con Accession Number(s): [id number] cc: Judy Boo MD PHYSICIAN INDICATIONS: Pain [...] 03 Signed By: Yunior Hickey MD 04/20/221403 Medical Reimbursement Specialist: IBRAHIMA Greenberg [facility] ([place]) Gas panel (BldV)on 2 CO2 (BldV) [Partial pressure] 30 mm[Hg] Low 39-55 [facility]) Comment on above: Performed By: #### 9 4500-6 #### [facility] [address] [place] [address] CO2 [Moles/Vol] 21.3 mmol/L Low 23-29 [facility] ([place] Comment on above: Performed By: #### 9 4500-6 #### [facility] [address] [place] [address] HCO3 (Bld) [Moles/Vol] 20.4 mmol/L Low 22-28 [facility] ([place]) Comment on above: Performed By: #### 9 4500-6 #### [facility] [address] [place] [address] Oxygen (BldV) [Partial pressure] 117.0 mm[Hg] High 30-50 [facility] ([place] Comment on above: Performed By: #### 9 4500-6 #### [facility] [address] [place] [address] pH (BldV) 7.44 [pH] High 7.31-7.42 [facility]) Comment on above: Performed By: #### 9 4500-6 #### [facility] [address] [place] [address] VBG Oxygen Saturation 99 % High 50-85 [place] ([place] Comment on above: Performed By: #### 9 4500-6 #### [facility] [address] [place] [address] Glucose Glucometer (BldC) [M ass/Vol]on 04-20-2022 Glucose [Mass/Vol] 164 mg/dL Normal 70-99 [facility] ([place] Comment on above: Performed By: #### 9 4500-6 #### [facility] [address] [place] [address] Glucose [Mass/Vol] 176 mg/dL Normal 70-99 [facility] ([place] Comment on above: Performed By: #### 2 1020-3 #### [facility] [address] [place] [address] Glucose [Mass/Vol] 178 mg/dL Normal 70-99 [facility] [place] Comment on above: Performed By: #### 2 1020-3 #### [facility] [address] [place] [address] Glucose [Mass/Vol] 231 mg/dL Normal 70-99 [facility] ([place] Comment on above: Performed By: #### 9 4500-6 #### [facility] [address] [place] [address] HCO3 (BldV) [Moles/Vol]Order ed By: Judy Boo on 04-20-2022 HCO3 (Bld) [Moles/Vol] 20.4 mmol/L 22-28 [facility] Hemoglobin A1con 04-20-2022 Average glucose Estimated from glycated hemoglobin (Bld) [Mass/Vol] 171 mg/dL Normal [facility] ([place] Comment on above: Performed By: #### 3 2693-4 #### [facility] [address] [place] [address] HbA1c (Bld) [Mass fraction] 7.6 % High 4.0-6.0 [facility] ([place] Comment on above: Performed By: #### 3 2693-4 #### [facility] [address] [place] [address] Natriuretic peptide B [Mass/ Vol]on 04-20-2022 Natriuretic peptide B (Bld) [Mass/Vol] 28 pg/mL Normal 0-100 [facility] ([place] Comment on above: Performed By: #### 4 1653-7 #### [facility] [address] [place] [address] Natriuretic peptide B [Mass/ Vol]Ordered By: Judy Boo on 04-20-2022 Natriuretic peptide B (Bld) [Mass/Vol] 28 pg/mL 0-100 [facility] No Panel InformationOrdered By: Judy Boo on 04-20-2022 Venous Blood Oxygen Saturation 99 % 50-85 [facility] Prothrombin Time on Coumadin on 04-20-2022 INR Coag (PPP) [Relative time] 2.33 {INR} Normal 2.00-3.50 [facility] ([place] Comment on above: Performed By: #### 3 2693-4 #### [facility] [address] [place] [address] Stool Clostridium difficile panel (glutamate dehydrogenase detection with detection oOrdered By: Judy Boo on 04-20-2022 C. difficile glutamate dehydrogenase and toxins A+B IA.rapid Ql (Stl) Negative [facility] Comment on above: Negative for toxigen ic C. difficile Venous blood pH measurementO rdered By: Judy Boo on 04-20-2022 pH (BldV) 7.44 [pH] 7.31-7.42 [facility] Venous blood partial pressur e of carbon dioxide measurementOrdered By: Judy Boo on 04-20-2022 CO2 (BldV) [Partial pressure] 30 mm[Hg] 39-55 [facility] Venous blood partial pressur e of oxygen measurementOrdered By: Judy Boo on 04-20-2022 Oxygen (BldV) [Partial pressure] 117.0 mm[Hg] 30-50 [facility] ALT (SGPT) ser/plasOrdered B y: Thompson Hayden on 04-19-2022 ALT [Catalytic activity/Vol] 27 U/L 10-63 [facility] Absolute lymphocyte countOrd ered By: Thompson Hayden on 04-19-2022 Lymphocytes Auto (Unsp spec) [#/Vol] 1.3 10*3/uL 1.10-4.80 [facility] Albumin [Mass/volume] in Ser um or PlasmaOrdered By: Thompson Hayden on 04-19-2022 Albumin [Mass/Vol] 4.1 g/dL 3.4-4.8 [facility] Albumin/Globulin [Mass Ratio ] in Serum or PlasmaOrdered By: Thompson Hayden on 04-19-2022 Albumin/Globulin [Mass ratio] 1.0 {ratio} 1.1-2.2 [facility] Alkaline phosphatase [Enzyma tic activity/volume] in Serum or PlasmaOrdered By: Thompson Hayden on 04-19-2022 ALP [Catalytic activity/Vol] 96 U/L 42-121 [facility] Aspartate aminotransferase [ Enzymatic activity/volume] in Serum or PlasmaOrdered By: Thompson Hayden on 04-19-2022 AST [Catalytic activity/Vol] 29 U/L 10-41 [facility] Automated leukocyte clumps c ount in urine sediment (number/area)Ordered By: Thompson Hayden on 04-19-2022 Leukocyte clumps Auto (Urine sed) [#/Area] Moderate /HPF NONE SEEN [facility] Bacteria [Presence] in Urine sediment by Light microscopyOrdered By: Thompson Hayden on 04-19-2022 Bacteria LM Ql (Urine sed) Trace /HPF NONE SEEN [facility] Basophils Auto (Bld) [#/Vol] Ordered By: Thompson Hayden on 04-19-2022 Basophils (Bld) [#/Vol] 0.1 10*3/uL 0.00-0.20 [facility] Basophils/100 WBC Auto (Bld) Ordered By: Thompson Hayden on 04-19-2022 Basophils/100 WBC (Bld) 0.7 % 0.0-1.5 [facility] Bilirubin.total [Mass/volume ] in Serum or PlasmaOrdered By: Thompson Hayden on 04-19-2022 Bilirubin [Mass/Vol] 1.2 mg/dL 0.3-1.5 [facility] Blood Cultureon 04-19-2022 Bacteria identified Anaer+Aer cx Nom (Unsp spec) Bacteria Spec Anaerobe+Aerobe Cult NO GROWTH 5 DAYS Normal [facility] ([place] Comment on above: Performed By: #### 4 1653-7 #### [facility] [address] [place] [address] Blood creatine kinase-MB yenny surement (mass/volume)Ordered By: Judy Boo on 04-19-2022 CK.MB (Bld) [Mass/Vol] 0.9 ng/mL 0-9.0 [facility] Blood magnesium measurement (mass/volume)Ordered By: Thompson Hayden on 04-19-2022 Magnesium (Bld) [Mass/Vol] 1.7 mEq/L 1.6-2.6 [facility] CBC W/ Auto Diffon Basophils (Bld) [#/Vol] 0.1 10*3/uL Normal 0.00-0.20 [facility] ([place] Comment on above: Performed By: #### C D #### [facility] [address] [place] [address] Basophils/100 WBC (Bld) 0.7 % Normal 0.0-1.5 [facility] ([place] Comment on above: Performed By: #### C D #### [facility] [address] [place] [address] Eosinophils (Bld) [#/Vol] 0.1 10*3/uL Normal 0.00-0.33 [facility] ([place] Comment on above: Performed By: #### C D #### [facility] [address] [place] [address] Eosinophils/100 WBC (Bld) 0.6 % Normal 0.0-3.0 [facility] ([place] Comment on above: Performed By: #### C D #### [facility] [address] [place] [address] Erythrocyte distribution width (RBC) [Ratio] 13.7 % Normal 10.9-14.3 [facility] ([place] Comment on above: Performed By: #### C D #### [facility] [address] [place] [address] Hematocrit (Bld) [Volume fraction] 46.6 % Normal 41.0-50.0 [facility] ([place] Comment on above: Performed By: #### C D #### [facility] [address] [place] [address] Hemoglobin (Bld) [Mass/Vol] 15.6 g/dL Normal 13.5-16.5 [facility] ([place] Comment on above: Performed By: #### C D #### [facility] [address] [place] [address] Lymphocytes Auto (Unsp spec) [#/Vol] 1.3 10*3/uL Normal 1.10-4.80 [facility] ([place] Comment on above: Performed By: #### C D #### [facility] [address] [place] [address] Lymphocytes/100 WBC (Bld) 12.6 % Low 24.0-44.0 [facility] ([place] Comment on above: Performed By: #### C D #### [facility] [address] [place] [address] MCH (RBC) [Entitic mass] 29.7 pg Normal 28.0-34.0 [facility] ([place] Comment on above: Performed By: #### C D #### [address] [address] MCHC (RBC) [Mass/Vol] 33.4 g/dL Normal 33.0-37.0 [place] ([place] Comment on above: Performed By: #### C D #### [address] [address] MCV (RBC) [Entitic vol] 88.9 fL Normal 80.0-100.0 [facility] ([place] Comment on above: Performed By: #### C D #### [facility] [address] [place] [address] Monocytes (Bld) [#/Vol] 0.8 10*3/uL High 0.20-0.70 [facility] ([place] Comment on above: Performed By: #### C D #### [address] [address] Monocytes/100 WBC (Bld) 8.4 % Normal 3.4-9.0 [facility] ([place] Comment on above: Performed By: #### C D #### [facility] [address] [place] [address] Neutrophils (Bld) [#/Vol] 7.8 10*3/uL Normal 1.83-8.70 [facility] ([place] Comment on above: Performed By: #### C D #### [facility] [address] [place] [address] Neutrophils/100 WBC (Bld) 77.7 % High 40.0-74.0 [facility] ([place] Comment on above: Performed By: #### C D #### [address] [address] Platelet mean volume (Bld) [Entitic vol] 6.6 fL Low 7.4-10.4 [facility] ([place] Comment on above: Performed By: #### C D #### [address] [address] Platelets (Bld) [#/Vol] 165 10*3/uL Normal 150-450 [facility] ([place] Comment on above: Performed By: #### C D #### [facility] [address] [place] [address] RBC (Bld) [#/Vol] 5.24 10*6/uL Normal 4.50-5.50 [facility] ([place] Comment on above: Performed By: #### C D #### [facility] [address] [place] [address] WBC (Bld) [#/Vol] 10.1 10*3/uL Normal 4.5-11.0 [facility] ([place] Comment on above: Performed By: #### C D #### [facility] [address] [place] [address] CK + isoenzymes totalOrdered By: Judy Boo on 04-19-2022 CK [Catalytic activity/Vol] 106 U/L 49-397 [facility] CK MB Bld-mCncon 04-19-2022 CK.MB (Bld) [Mass/Vol] 0.9 ng/mL Normal 0-9.0 [facility] ([place] Comment on above: Performed By: #### 6 30-4 #### [facility] [address] [place] [address] CK SerPl-cCncon 04-19-2022 CK [Catalytic activity/Vol] 106 U/L Normal 49-397 [facility] ([place] Comment on above: Performed By: #### 6 30-4 #### [facility] [address] [place] [address] CT head/brain wo conon 04-19 CT head/brain wo [facility] [address] [place] [address] CT Scan Report Signed Patient: CHARLI PORRAS [place]#: [id number] : 1950 Acct:[id number] Age/Sex: 71 / M Admit Date: 04/18/22 Loc: ER Attending Dr: Ordering Physician: Thompson Hayden MD Date of Service: 04/19/22 Procedure(s): CT head/brain wo con Accession Number(s): [id number] cc: Thompson Hayden MD INDICATION: Altered mental [...] Signed By: Yimi Llanos MD 04/19/22 0425 Medical Reimbursement Specialist: Normal [facility] ([place] Carbon dioxide, total [Moles /volume] in Serum or PlasmaOrdered By: Thompson Hayden on 04-19-2022 CO2 [Moles/Vol] 24 mmol/L 21-31 [facility] Chloride [Moles/volume] in S maricel or PlasmaOrdered By: Thompson Hayden on 04-19-2022 Chloride [Moles/Vol] 94 mmol/L 98-107 [facility] Comprehensive metabolic 2000 panelon 04-19-2022 Albumin [Mass/Vol] 4.1 g/dL Normal 3.4-4.8 [facility] ([place] Comment on above: Performed By: #### 4 1653-7 #### [facility] [address] [place] [address] Albumin/Globulin [Mass ratio] 1.0 {ratio} Low 1.1-2.2 [facility] ([place] Comment on above: Performed By: #### 4 1653-7 #### [facility] [address] [place] [address] ALP [Catalytic activity/Vol] 96 U/L Normal 42-121 [facility] ([place] Comment on above: Performed By: #### 4 1653-7 #### [facility] [address] [place] [address] ALT [Catalytic activity/Vol] 27 U/L Normal 10-63 [facility] ([place] Comment on above: Performed By: #### 4 1653-7 #### [facility] [address] [place] [address] Anion gap [Moles/Vol] 13.0 mmol/L High 3-11 [facility] ([place] Comment on above: Performed By: #### 4 1653-7 #### [facility] [address] [place] [address] AST [Catalytic activity/Vol] 29 U/L Normal 10-41 [facility] ([place] Comment on above: Performed By: #### 4 1653-7 #### [facility] [address] [place] [address] Bilirubin [Mass/Vol] 1.2 mg/dL Normal 0.3-1.5 [facility] ([place] Comment on above: Performed By: #### 4 1653-7 #### [facility] [address] [place] [address] Calcium [Mass/Vol] 9.0 mg/dL Normal 8.5-10.5 [facility] ([place] Comment on above: Performed By: #### 4 1653-7 #### [facility] [address] [place] [address] Chloride [Moles/Vol] 94 mmol/L Low 98-107 [facility] ([place] Comment on above: Performed By: #### 4 1653-7 #### [facility] [address] [place] [address] CO2 [Moles/Vol] 24 mmol/L Normal 21-31 [facility] ([place] Comment on above: Performed By: #### 4 1653-7 #### [facility] [address] [place] [address] Creatinine [Moles/Vol] 1.5 mg/dL High 0.6-1.3 [facility] ([place] Comment on above: Performed By: #### 4 1653-7 #### [facility] [address] [place] [address] Creatinine and Glomerular filtration rate.predicted panel (S/P/Bld) 56 mL/min Normal >60 [facility] ([place] Comment on above: Performed By: #### 4 1653-7 #### [facility] [address] [place] [address] GFR/1.73 sq M.predicted among non-blacks MDRD (S/P/Bld) [Vol rate/Area] 46 mL/min/{1.73_m2} Normal >60 [facility] ([place] Comment on above: Performed By: #### 4 1653-7 #### [facility] [address] [place] [address] Globulin (S) [Mass/Vol] 4.1 g/dL High 1.9-3.9 [facility] ([place] Comment on above: Performed By: #### 4 1653-7 #### [facility] [address] [place] [address] Glucose [Mass/Vol] 273 mg/dL High 70-99 [facility] ([place] Comment on above: Performed By: #### 4 1653-7 #### [facility] [address] [place] [address] Potassium [Moles/Vol] 4.1 mmol/L Normal 3.6-5.0 [place] ([place] Comment on above: Performed By: #### 4 1653-7 #### [facility] [address] [place] [address] Protein [Mass/Vol] 8.2 g/dL High 5.9-7.8 [facility] ([place] Comment on above: Performed By: #### 4 1653-7 #### [facility] [address] [place] [address] Sodium [Moles/Vol] 131 mmol/L Low 135-145 [facility] ([place] Comment on above: Performed By: #### 4 1653-7 #### [facility] [address] [place] [address] Urea nitrogen [Mass/Vol] 18 mg/dL Normal 6-20 [facility] ([place] Comment on above: Performed By: #### 4 1653-7 #### [facility] [address] [place] [address] Creatinine and Glomerular fi ltration rate.predicted panel (S/P/Bld)Ordered By: Thompson Hayden on 04-19-2022 GFR/1.73 sq M.predicted MDRD (S/P/Bld) [Vol rate/Area] 56 mL/min/{1.73_m2} >60 [facility] Eosinophils Auto (Bld) [#/Vo l]Ordered By: Thompson Hayden on 04-19-2022 Eosinophils (Bld) [#/Vol] 0.1 10*3/uL 0.00-0.33 [facility] Eosinophils/100 WBC Auto (Bl d)Ordered By: Thompson Hayden on 04-19-2022 Eosinophils/100 WBC (Bld) 0.6 % 0.0-3.0 [facility] Erythrocyte distribution wid th Auto (RBC) [Ratio]Ordered By: Thompson Hayden on 04-19-2022 Erythrocyte distribution width (RBC) [Ratio] 13.7 % 10.9-14.3 [facility] Estimated glomerular filtrat ion rate (GFR) non- AmericanOrdered By: Thompson Hayden on 04-19-2022 GFR/1.73 sq M.predicted among non-blacks MDRD (S/P/Bld) [Vol rate/Area] 46 mL/min/{1.73_m2} >60 [facility] Glucose Glucometer (BldC) [M ass/Vol]on 04-19-2022 Glucose [Mass/Vol] 267 mg/dL Normal 70-99 [facility] ([place] Comment on above: Performed By: #### 2 1020-3 #### [facility] [address] [place] [address] Glucose [Mass/Vol] 223 mg/dL Normal 70-99 [facility] ([place] Comment on above: Performed By: #### 4 1653-7 #### [facility] [address] [place] [address] Hematocrit Auto (Bld) [Volum e fraction]Ordered By: Thompson Hayden on 04-19-2022 Hematocrit (Bld) [Volume fraction] 46.6 % 41.0-50.0 [facility] Hemoglobin [Mass/volume] in BloodOrdered By: Thompson Hayden on 04-19-2022 Hemoglobin (Bld) [Mass/Vol] 15.6 g/dL 13.5-16.5 [facility] Influenza A,B [facility] by PCRon 04-19-2022 FLUBV Ag Ql (Unsp spec) Negative Normal Negative [facility] ([place] Comment on above: Performed By: #### 6 30-4 #### [facility] [address] [place] [address] Rapid Flu A Negative Normal Negative [facility] ([place] Comment on above: Performed By: #### 6 30-4 #### [facility] [address] [place] [address] Lactate (Bld) [Moles/Vol]on 04-19-2022 Lactate [Moles/Vol] 1.3 mmol/L Normal 0.5-2.0 [facility] ([place] Comment on above: Performed By: #### 2 1020-3 #### [facility] [address] [place] [address] Lactate [Moles/Vol] 2.9 mmol/L Critically high 0.5-2.0 [facility] ([place]) Comment on above: Result Comment: Crit ical result called to and read back by [] at 1517. Performed By: #### 3 2693-4 #### [facility] [address] [place] [address] (756) Lactate (Bld) [Moles/Vol]Ord ered By: Thompson Hayden on 04-19-2022 Lactate [Moles/Vol] 2.9 mmol/L 0.5-2.0 [facility] Comment on above: Critical result call ed to and read back by [] at 1517. Leukocytes detection in urin e sediment by light microscopyOrdered By: Thompson Hayden on 04-19-2022 WBC LM Ql (Urine sed) >100 /HPF NONE SEEN [place] Lymphocytes/100 WBC Auto (Bl d)Ordered By: Thompson Hayden on 04-19-2022 Lymphocytes/100 WBC (Bld) 12.6 % 24.0-44.0 [facility] MCH Auto (RBC) [Entitic mass ]Ordered By: Thompson Hayden on 04-19-2022 MCH (RBC) [Entitic mass] 29.7 pg 28.0-34.0 [facility] MCHC Auto (RBC) [Mass/Vol]Or dered By: Thompson Hayden on 04-19-2022 MCHC (RBC) [Mass/Vol] 33.4 g/dL 33.0-37.0 [place] MCV (mean corpuscular volume ) determinationOrdered By: Thompson Hayden on 04-19-2022 MCV (RBC) [Entitic vol] 88.9 fL 80.0-100.0 S [facility] Magnesium Bld-mCncon 022 Magnesium (Bld) [Mass/Vol] 1.7 mEq/L Normal 1.6-2.6 [facility] ([place]) Comment on above: Performed By: #### 4 1653-7 #### [facility] [address] [place], [place] [id number] Microscopic examination of u rineOrdered By: Thompson Hayden on 04-19-2022 Microscopic observation LM Nom (Urine sed) Yes [facility] Microscopic observation LM N om (Urine sed)on 04-19-2022 Transitional cells LM Ql (Urine sed) OCCASIONAL Normal NONE SEEN [facility] ([place]) Comment on above: Order Comment: Urine Collect Clean Catch Performed By: #### 6 30-4 #### [facility] [address] [place] [address] Monocytes Auto (Bld) [#/Vol] Ordered By: Thompson Hayden on 04-19-2022 Monocytes (Bld) [#/Vol] 0.8 10*3/uL 0.20-0.70 [facility] Monocytes/100 WBC Auto (Bld) Ordered By: Thompson Hayden on 04-19-2022 Monocytes/100 WBC (Bld) 8.4 % 3.4-9.0 [facility] Neutrophils Auto (Bld) [#/Vo l]Ordered By: Thompson Hayden on 04-19-2022 Neutrophils (Bld) [#/Vol] 7.8 10*3/uL 1.83-8.70 [facility] Neutrophils/100 WBC Auto (Bl d)Ordered By: Thompson Hayden on 04-19-2022 Neutrophils/100 WBC (Bld) 77.7 % 40.0-74.0 [facility] No Panel InformationOrdered By: Thompson Hayden on 04-19-2022 Procalcitonin 0.14 ng/mL 0.10-0.50 [facility] Comment on above: *PROCALCITONIN INTER PRETATION*Less than 0.5: Low risk for systemic infection.0.5 to 2.0: Moderate risk for systemic infection.Greater than 2.0: High risk for systemic infection.10.0 or greater: Likelihood of severe sepsis or septic shock. Influenza Type A (Rapid) Negative Negative [facility] Platelet mean volume Auto (B ld) [Entitic vol]Ordered By: Thompson Hayden on 04-19-2022 Platelet mean volume (Bld) [Entitic vol] 6.6 fL 7.4-10.4 [facility] Platelets Auto (Bld) [#/Vol] Ordered By: Thompson Hayden on 04-19-2022 Platelets (Bld) [#/Vol] 165 10*3/uL 150-450 [facility] Potassium [Moles/volume] in Serum or PlasmaOrdered By: Thompson Hayden on 04-19-2022 Potassium [Moles/Vol] 4.1 mmol/L 3.6-5.0 [place] Procalcitoninon 04-19-2022 Procalcitonin 0.14 ng/mL Normal 0.10-0.50 [facility] ([place]) Comment on above: Result Comment: *PRO CALCITONIN INTERPRETATION* Less than 0.5: Low risk for systemic infection. 0.5 to 2.0: Moderate risk for systemic infection. Greater than 2.0: High risk for systemic infection. 10.0 or greater: Likelihood of severe sepsis or septic shock. Performed By: #### 2 1020-3 #### [address] [address] Prothrombin Time INR w/o Cou mon 04-19-2022 INR Coag (PPP) [Relative time] 2.64 {INR} High 0.80-2.00 [facility] ([place]) Comment on above: Performed By: #### 9 4500-6 #### [address] [address] PT Coag (Bld) [Time] 29.9 s High 9.5-12.9 [facility] ([place]) Comment on above: Performed By: #### 9 4500-6 #### [address] [address] RBC Auto (Bld) [#/Vol]Ordere d By: Thompson Hayden on 04-19-2022 RBC (Bld) [#/Vol] 5.24 10*6/uL 4.50-5.50 [facility] RBC LM Ql (Urine sed)Ordered By: Thompson Hayden on 04-19-2022 RBC Ql (U) 10-20 /HPF NONE SEEN [facility] Rapid influenza B antigen de tectionOrdered By: Thompson Hayden on 04-19-2022 FLUBV Ag Ql (Unsp spec) Negative Negative [facility] Respiratory specimen COVID-1 9 virus RNA detectionOrdered By: Thompson Hayden on 04-19-2022 SARS-CoV-2 (COVID-19) RNA LIV+probe Ql (Resp) [facility] SARS-CoV2 PCRon 04-19-2022 SARS-CoV-2 (COVID-19) RNA LIV+probe [...] authorization is terminated or revoked sooner. Normal [facility] ([place]) Comment on above: Performed By: #### 9 4500-6 #### [facility] [address] [place] [address] Serum globulin measurement ( mass/volume)Ordered By: Thompson Hayden on 04-19-2022 Globulin (S) [Mass/Vol] 4.1 g/dL 1.9-3.9 [facility] Serum glucose measurement (m ass/volume)Ordered By: Thompson Hayden on 04-19-2022 Glucose [Mass/Vol] 273 mg/dL 70-99 [facility] Serum or plasma anion gap de termination (moles/volume)Ordered By: Thompson Hayden on 04-19-2022 Anion gap [Moles/Vol] 13.0 mmol/L 3-11 [facility] Serum or plasma calcium maricel urement (mass/volume)Ordered By: Thompson Jackelyn on 04-19-2022 Calcium [Mass/Vol] 9.0 mg/dL 8.5-10.5 [facility] Serum or plasma creatinine m easurement (moles/volume)Ordered By: Thompson Hayden on 04-19-2022 Creatinine [Moles/Vol] 1.5 mg/dL 0.6-1.3 [facility] Serum or plasma sodium measu rement (moles/volume)Ordered By: Thompson Hayden on 04-19-2022 Sodium [Moles/Vol] 131 mmol/L 135-145 [facility] Serum or plasma urea nitroge n measurement (mass/volume)Ordered By: Thompson Hayden on 04-19-2022 Urea nitrogen [Mass/Vol] 18 mg/dL 6- [facility] Total protein bloodOrdered B y: Thompson Hayden on 04-19-2022 Protein [Mass/Vol] 8.2 g/dL 5.9-7.8 [facility] Troponin I SerPl-mCncon 04-03 Troponin I.cardiac [Mass/Vol] ng/mL Normal <0.03 [facility] ([place]) Comment on above: Performed By: #### 6 30-4 #### [facility] [address] [place], [place] [address] Troponin I ser/plasOrdered B y: Judy Pompura on 04-19-2022 Troponin I.cardiac [Mass/Vol] ng/mL <0.03 [facility] Urinalysison 04-19-2022 Bilirubin+Urobilinogen Ql (U) Negative Normal NEGATIVE [facility] ([place] Comment on above: Order Comment: Urine Collect Clean Catch Performed By: #### 6 30-4 #### [facility] [address] [place], [place] [address] Glucose Auto test strip (U) [Mass/Vol] 1000 mg/dL Abnormal NEGATIVE [facility] ([place] Comment on above: Order Comment: Urine Collect Clean Catch Performed By: #### 6 30-4 #### [facility] [address] [place] [address] Ketones Ql (U) Negative Normal NEGATIVE [facility] ([place] Comment on above: Order Comment: Urine Collect Clean Catch Performed By: #### 6 30-4 #### [facility] [address] [place] [address] Nitrate Ql (U) Negative Normal NEGATIVE [facility] ([place]) Comment on above: Order Comment: Urine Collect Clean Catch Performed By: #### 6 30-4 #### [facility] [address] [place] [address] RBC Ql (U) SMALL Abnormal NEGATIVE [facility] ([place] Comment on above: Order Comment: Urine Collect Clean Catch Performed By: #### 6 30-4 #### [facility] [address] [place] [address] Urobilinogen (U) [Mass/Vol] Negative Normal NEGATIVE [facility] ([place]) Comment on above: Order Comment: Urine Collect Clean Catch Performed By: #### 6 30-4 #### [facility] [address] [place] [address] WBC Visual Ql (U) TRACE Abnormal NEGATIVE [facility] ([place] Comment on above: Order Comment: Urine Collect Clean Catch Performed By: #### 6 30-4 #### [facility] [address] [place] [address] Appearance (U) HAZY Normal [facility] ([place]) Comment on above: Order Comment: Urine Collect Clean Catch Performed By: #### 6 30-4 #### [facility] [address] [place] [address] Color (U) YELLOW Normal [facility] ([place] Comment on above: Order Comment: Urine Collect Clean Catch Performed By: #### 6 30-4 #### [facility] [address] [place] [address] pH (U) 5.0 [pH] Normal 4.6-8.0 [facility] ([place] Comment on above: Order Comment: Urine Collect Clean Catch Performed By: #### 6 30-4 #### [facility] [address] [place] [address] Protein Auto test strip Ql (U) TRACE Abnormal NEGATIVE [facility] ([place] Comment on above: Order Comment: Urine Collect Clean Catch Performed By: #### 6 30-4 #### [facility] [address] [place] [address] Specific gravity (U) [Rel density] 1.015 Normal 1.001-1.035 [facility] ([place] Comment on above: Order Comment: Urine Collect Clean Catch Performed By: #### 6 30-4 #### [facility] [address] [place] [address] Urobilinogen Test strip (U) [Mass/Vol]Ordered By: Thompson Hayden on 04-19-2022 Urobilinogen (U) [Mass/Vol] Negative NEGATIVE [facility] WBC Auto (Bld) [#/Vol]Ordere d By: Thompson Hayden on 04-19-2022 WBC (Bld) [#/Vol] 10.1 10*3/uL 4.5-11.0 [facility] XR chest 1V portableon 04-19 XR chest 1V portable [facility] [address] [place] [address] XRay Report Signed Patient: CHARLI PORRAS [place]#: [id number] : 1950 Acct:[id number] Age/Sex: 71 / M Admit Date: 04/18/22 Loc: ER Attending Dr: Ordering Physician: Thompson Hayden MD Date of Service: 04/19/22 Procedure(s): XR chest 1V portable Accession Number(s): [id number] cc: Thompson Hayden MD INDICATION: Increased weakness [...] Signed By: Radu Carvalho MD 04/19/22 0100 Medical Reimbursement Specialist: [facility] ([place]) [facility] 03-10-2022 BESSEMER Patient name: CHARLI PORRAS MR#: [id number] Date of Service: 03/10/22 Acc#: [id number] : 1950 Age: 71 Sex: M Dictated by: Denise Barnes NP Patient Name : CHARLI PORRAS (71yo, M) ID# [id number] Appt. Date/Time : 03/10/2022 02:15PM : 1950 Service Dept. : [facility] Provider : DENISE BARNES APRN, MARINE ENGINEER [employer] [facility] (MEDIC[facility] REPLACEMENT/ADVANTAGE - HMO) Insurance # : [id number] Policy/Group # : [id number] Med Secondary: [facility] - DOS PRIOR TO 2022 (MEDICAID REPLACEMENT - HMO) Insurance # : [id number] Policy/Group # : [id number] Prescription: [facility] - Member is eligible. details Chief Complaint *pain management pain in legs and back Patient's Care Team Primary Care Provider: ERICKA CASSIDY MD: [address] [place] [address], , Referring Provider: SARAH FELIPEI: [address] [place] [address], , Other: CHARISSE VALENCIA MD: [address] [place] [address], , Patient's Pharmacies [employer] [id number] ERX): [id number] [place] [address], , Vitals BP: 154/75 sitting R arm [...] DAY Date: 03/06/22 filled Source: martharimartha Name: ammonium lactate 12 % lotion APPLY TO THE AFFECTED AREA(S) TWICE DAILY Date: 12/12/21 filled Source: ursula Name: atorvastatin 10 mg tablet TAKE 1 TABLET BY MOUTH EVERY DAY Date: 03/06/22 filled Source: martharimartha Name: bumetanide 1 mg tablet TAKE 1 TABLET BY MOUTH EVERY DAY NEEDED FOR LEG SWELLING Date: 03/06/22 filled Source: martharimartha Name: busPIRone 15 mg [...] EVENING *EMERGENCY REFILL* Date: 02/05/22 filled Source: ursula Name: doxazosin 2 mg tablet TAKE 1 TABLET BY MOUTH EVERY DAY Date: 03/06/22 filled Source: martharimartha Name: DULoxetine 60 mg capsule,delayed release TAKE ONE (1) CAPSULE BY MOUTH ONCE DAILY Date: 03/06/22 filled Source: martharimartha Name: ezetimibe 10 mg tablet TAKE 1 TABLET BY MOUTH EVERY DAY Date: 03/06/22 filled Source: martharimartha Name: gabapentin 800 mg tablet TAKE 1 TABLET BY MOUTH THREE TIMES DAILY Date: 02/28/22 filled Source: martharimartha Name: glipiZIDE ER 10 mg tablet, extended release 24 hr TAKE 2 TABLETS BY MOUTH EVERY DAY WITH BREAKFAST *STOP OTHER GLIPIZIDE* Date: 03/06/22 filled Source: martharimartha Name: hydrOXYzine pamoate 50 mg capsule TAKE 1 CAPSULE BY MOUTH FOUR TIMES DAILY NEEDED Date: 03/05/22 filled Source: martharimartha Name: Januvia 25 mg tablet TAKE 1 TABLET BY MOUTH ONCE DAILY *EMERGENCY REFILL* Date: 12/06/21 filled Source: ursula Name: Jardiance 25 mg tablet TAKE 1 TABLET BY MOUTH EVERY DAY IN THE MORNING Date: 03/06/22 filled Source: ursula Name: Deb Wynn U-100 Insulin 100 unit/mL (3 mL) subcutaneous pen INJECT 50 UNITS SUBCUTANEOUSLY EVERY DAY Date: 03/06/22 filled Source: ursula Name: mupirocin 2 % topical ointment APPLY TO THE AFFECTED AREA(S) TWICE DAILY with dressing for 14 days Date: 10/03/21 filled Source: ursula Name: pramipexole 0.125 mg tablet TAKE 1 TABLET BY MOUTH TWO TIMES EVERY DAY Date: 03/06/22 filled Source: marthariamrtha Name: QUEtiapine 100 mg tablet TAKE 1 TABLET BY MOUTH EVERY MORNING Date: 02/20/22 filled Source: martharimartha Name: QUEtiapine 200 mg tablet TAKE 1 TABLET BY MOUTH EVERY BEDTIME Date: 03/06/22 filled Source: martharimartha Name: QUEtiapine 50 mg tablet TAKE 1 TABLET BY MOUTH EVERY AFTERNOON *EMERGENCY REFILL* Date: 03/05/22 filled Source: ursula Name: risperiDONE 1 mg tablet TAKE 1 TABLET BY MOUTH EVERY EVENING Date: 03/04/21 filled Source: (more content not included)... [facility] 01-08-2022 JEANNETTE Patient name: CHARLI PORRAS MR#: [id number] Date of Service: 01/08/22 Acc#: [id number] : 1950 Age: 71 Sex: M Dictated by: Maryan Tony MD Patient Name : CHARLI PORRAS (71yo, M) ID# [id number] Appt. Date/Time : 01/08/2022 01:15PM : 1950 Service Dept. : [facility] Provider : MARYAN TONY M.D. Insurance Med Primary: [facility] - MEDIBLUE (MEDICARE REPLACEMENT/ADVANTAGE - HMO) Insurance # : [id number] Policy/Group # : [id number] Med Secondary: [facility] ([place] REPLACEMENT - HMO) Insurance # : [id number] Policy/Group # : [id number] Prescription: [facility] - Member is eligible. details Prescription: [facility] - Member is eligible. details Chief Complaint *pain management REFILLS; C/O PAIN FROM BACK TO FEET - ALL OVER; WOULD LIKE TO GET AN INJECTION AVING A LOT OF SCIATIC NERVE PAIN DOWN RIGHT SIDE Patient's Care Team Primary Care Provider: ERICKA CASSIDY MD: [address] [place] [address], , Referring Provider: SARAH FELIPEI: [address] [place] [address], Ph [phone], Other: CHARISSE VALENCIA MD: [address] [place] [address], , ax Patient's Pharmacies [email or web address] [id number] (ERX): [id number] [address], Ph [phone], Vitals BP: 166/88 sitting L arm 01/08/2022 [...] MOUTH EVERY DAY Date: 01/07/22 filled Source: martharimartha Name: ammonium lactate 12 % lotion APPLY TO THE AFFECTED AREA(S) TWICE DAILY Date: 12/12/21 filled Source: martharipts Name: atorvastatin 10 mg tablet TAKE 1 TABLET BY MOUTH EVERY DAY Date: 01/07/22 filled Source: martharimartha Name: bumetanide 1 mg tablet TAKE 1 TABLET BY MOUTH EVERY DAY NEEDED FOR LEGSWELLING Date: 01/07/22 filled Source: martharimartha Name: busPIRone 15 mg [...] WEEK FOR ANXIETY Date: 01/07/22 filled Source: ursula Name: cloNIDine HCL 0.1 mg tablet TAKE 1 TABLET BY MOUTH TWICE DAILY NEEDED EMERGENCY REFILL* Date: 10/08/21 filled Source: martharipts Name: diclofenac 1 % topical gel APPLY 2 GRAMS TOPICALLY TWICE DAILY TO AFFECTE AREA(S) Date: 11/13/20 filled Source: [facility] Name: donepeziL 10 mg tablet TAKE 1 TABLET BY MOUTH EVERY DAY IN THE EVENING Date: 01/07/22 filled Source: martharipts Name: doxazosin 2 mg tablet TAKE 1 TABLET BY MOUTH ONCE DAILY Date: 01/07/22 filled Source: martharipts Name: DULoxetine 60 mg capsule,delayed release TAKE ONE (1) CAPSULE BY MOUTH ONE DAILY Date: 01/07/22 filled Source: [facility] Name: ezetimibe 10 mg tablet TAKE 1 TABLET BY MOUTH EVERY DAY Date: 01/07/22 filled Source: [facility]oses[facility] Name: FLUoxetine 40 mg capsule TAKE 1 CAPSULE BY MOUTH ONCE DAILY *EMERGENCY REILL* Date: 08/08/21 filled Source: [facility]oses[facility] Name: gabapentin 800 mg tablet TAKE 1 TABLET BY MOUTH 3 TIMES DAILY Date: 01/08/22 prescribed Source: Maryan Tony M.D. Name: glipiZIDE 5 mg tablet TAKE 2 TABLETS BY MOUTH 2 TIMES EVERY DAY BEFORE A EAL Date: 01/07/22 filled Source: [facility]oses[facility] Name: hydrOXYzine pamoate 50 mg capsule TAKE 1 CAPSULE BY MOUTH FOUR TIMES JILLIAN NEEDED *EMERGENCY REFILL* Date: 07/10/21 filled Source: [facility]oses[facility] Name: Januvia 25 mg tablet TAKE 1 TABLET BY MOUTH ONCE DAILY *EMERGENCY REFILL* Date: 12/06/21 filled Source: [facility] Name: Jardiance 25 mg tablet TAKE 1 TABLET BY MOUTH EVERY DAY IN THE MORNING Date: 01/07/22 filled Source: [facility] Name: Lantus Solostar U-100 Insulin 100 unit/mL (3 mL) subcutaneous pen INJECT 0 UNITS SUBCUTANEOUSLY EVERY DAY Date: 01/07/22 filled Source: [facility]oses[facility] Name: mupirocin 2 % topical ointment APPLY TO THE AFFECTED AREA(S) TWICE DAILY ith dressing for 14 days Date: 10/03/21 filled Source: [facility]oses[facility]s Name: nystatin 100,000 unit/gram topical powder APPLY TO THE AFFECTED AREA(S) TREE TIMES DAILY Date: 07/19/21 filled Source: [facility] Name: pramipexole 0.125 mg tablet TAKE 1 TABLET BY MOUTH TWO TIMES EVERY DAY Date: 01/07/22 filled Source: [facility] Name: QUEtiapine 100 mg (more content not included)... [facility] 11-07-2021 BESSEMER Patient name: CHARLI PORRAS MR#: [id number] Date of Service: 11/07/21 Acc#: [id number] : 1950 Age: 71 Sex: M Dictated by: Maryan Tony MD Patient Name : CHARLI PORRAS (71yo, M) ID# [id number] Appt. Date/Time : 11/07/2021 09:45AM : 1950 Service Dept. : [facility] Provider : MARYAN TONY M.D. Insurance Med Primary: [facility] - MEDIBLUE (MEDICARE REPLACEMENT/ADVANTAGE - HMO) Insurance # : [id number] Policy/Group # : [id number] Med Secondary: [facility] ([place] REPLAC[place] - HMO) Insurance # : [id number] Policy/Group # : [id number] Prescription: [facility] - Member is eligible. details Prescription: [facility] - Member is eligible. details Chief Complaint *pain management refills; c/o pain all over mostly back and legs Patient's Care Team Primary Care Provider: ERICKA CASSIDY MD: [address] [place] [address], , Referring Provider: SARAH FELIPEI: [address] [place] [address], Ph [phone], Other: CHARISSE VALENCIA MD: [address] [place] [address], , ax Patient's Pharmacies [email or web address] [id number] (ERX): [address] [address], Ph [phone], Vitals BP: 141/59 sitting R arm 11/07/2021 [...] DAY Date: 10/08/21 filled Source: martharimartha Name: atorvastatin 10 mg tablet TAKE 1 TABLET BY MOUTH EVERY DAY Date: 10/08/21 filled Source: martharipts Name: bumetanide 1 mg tablet TAKE 1 TABLET BY MOUTH EVERY DAY NEEDED FOR LEGSWELLING Date: 10/08/21 filled Source: martharipts Name: busPIRone 15 mg tablet TAKE ONE (1) TABLET BY MOUTH TWICE DAILY Date: 07/10/21 filled Source: martharipts Name: Centrum Silver Men 300 mcg-600 mcg-300 mcg tablet Take 1 tablet(s) every ay by oral route. Date: 10/10/20 entered Source: Kerri Christesnen Name: cloNIDine 0.2 mg/24 hr weekly transdermal patch APPLY 1 PATCH TOPICALLY EERY WEEK FOR ANXIETY Date: 10/08/21 filled Source: ursula Name: cloNIDine HCL 0.1 mg tablet TAKE 1 TABLET BY MOUTH TWICE DAILY NEEDED EMERGENCY REFILL* Date: 10/08/21 filled Source: martharimartha Name: diclofenac 1 % topical gel APPLY 2 GRAMS TOPICALLY TWICE DAILY TO AFFECTE AREA(S) Date: 11/13/20 filled Source: ursula Name: donepeziL 10 mg tablet TAKE 1 TABLET BY MOUTH EVERY DAY IN THE EVENING Date: 10/08/21 filled Source: ursula Name: doxazosin 2 mg tablet TAKE 1 TABLET BY MOUTH ONCE DAILY Date: 10/08/21 filled Source: martharipts Name: DULoxetine 60 mg capsule,delayed release TAKE 1 CAPSULE BY MOUTH EVERY DAY Date: 10/08/21 filled Source: martharipts Name: ezetimibe 10 mg [...] MORNING Date: 10/08/21 filled Source: surescripts Name: Lantus Solostar U-100 [...] Name: risperiDONE 1 (more content not included)... [facility] 08-29-2021 BESSEMER Patient name: CHARLI PORRAS MR#: [id number] Date of Service: 08/29/21 Acc#: [id number] : 1950 Age: 71 Sex: M Dictated by: Maryan Tony MD Patient Name : CHARLI PORRAS (71yo, M) ID# [id number] Appt. Date/Time : 08/29/2021 08:30AM : 1950 Service Dept. : [facility] Provider : MARYAN TONY M.D. Insurance Med Primary[place] [employer] (MEDICARE REPLACEMENT/ADVANTAGE - HMO) Insurance # : [id number] Policy/Group # : [id number] Med Secondary: [facility] - [place]MO) Insurance # : [id number] Policy/Group # : [id number] Prescription: [facility] - Member is eligible. details Prescription: [facility] - Member is eligible. details Chief Complaint medication refill, *pain management refill Patient's Care Team Primary Care Provider: ERICKA CASSIDY MD: [address] [place] [address], , Referring Provider: SARAH FELIPEI: [address] [place] [address], Ph [phone], Other: CHARISSE VALENCIA MD: [address] [place] [address], , ax Patient's Pharmacies [employer] [facility] (ERX): [address] [address], Ph [phone], Vitals BP: 104/71 sitting R arm 08/29/2021 [...] NEEDED FOR LEGSWELLING Date: 08/08/21 filled Source: [facility]oses[facility]s Name: busPIRone 15 mg tablet TAKE ONE (1) TABLET BY MOUTH TWICE DAILY Date: 07/10/21 filled Source: [facility] Name: Centrum Silver Men 300 mcg-600 mcg-300 [...] IN THE EVENING Date: 08/08/21 filled Source: ursula Name: doxazosin 2 mg tablet TAKE 1 TABLET BY MOUTH ONCE DAILY Date: 08/08/21 filled Source: ursula Name: DULoxetine 60 mg capsule,delayed release TAKE 1 CAPSULE BY MOUTH EVERY DAY Date: 08/08/21 filled Source: [facility] Name: ezetimibe 10 mg tablet TAKE 1 TABLET BY MOUTH EVERY DAY Date: 08/08/21 filled Source: [facility] Name: FLUoxetine 40 mg capsule TAKE 1 CAPSULE BY MOUTH ONCE DAILY *EMERGENCY REILL* Date: 08/08/21 filled Source: ursula Name: gabapentin 800 mg tablet TAKE 1 TABLET BY MOUTH THREE TIMES DAILY Date: 07/27/21 filled Source: [facility] Name: glipiZIDE 5 mg tablet TAKE TWO (2) TABLETS BY MOUTH TWICE DAILY BEFORE MELS Date: 08/08/21 filled Source: martharipts Name: hydrOXYzine pamoate 50 mg capsule TAKE 1 CAPSULE BY MOUTH FOUR TIMES JILLIAN NEEDED *EMERGENCY REFILL* Date: 07/10/21 filled Source: ursula Name: Januvia 25 mg tablet TAKE 1 TABLET BY MOUTH EVERY DAY Date: 08/08/21 filled Source: martharimartha Name: Jardiance 25 mg tablet TAKE 1 TABLET BY MOUTH EVERY DAY IN THE MORNING Date: 08/08/21 filled Source: ursula Name: Deb Wynn U-100 Insulin 100 unit/mL [...] TRANSDERMALLYONCE SENTHIL (more content not included)... Normal [facility] BASIC METABOLIC PANELon 07-02 Calcium [Mass/Vol] 9.0 mg/dL Normal 8.5-10.5 [facility] Comment on above: Performed By: #### C OVID19 [id number] #### [facility] [address] [place] [address] Chloride [Moles/Vol] 98 mmol/L Normal 98-107 [facility] Comment on above: Performed By: #### C OVID19 [id number] #### [facility] [address] [place] [address] CO2 [Moles/Vol] 29 mmol/L Normal 21-32 [facility] Comment on above: Performed By: #### C OVID19 [id number] #### [facility] [address] [place] [address] Creatinine [Mass/Vol] 1.32 mg/dL High 0.70-1.30 [facility] Comment on above: Performed By: #### C OVID19 [id number] #### [facility] [address] [place] [address] EST GLOM FILT > 60 Normal [facility] Comment on above: Result Comment: Result [...] 15 . Performed By: #### C OVID19 [id number] #### [facility] [address] [place] [address] ESTIMATED GLOM FILT RATE 53 mL/min/ Low [facility] Comment on above: Performed By: #### C OVID19 [id number] #### [facility] [address] [place] [address] Glucose [Mass/Vol] 303 mg/dL High 65-99 [facility] Comment on above: Performed By: #### C OVID19 [id number] #### [facility] [address] [place] [address] Potassium [Moles/Vol] 3.2 mmol/L Low 3.5-5.1 [facility] [place] [facility] Comment on above: Performed By: #### C OVID19 [id number] #### [facility] [address] [place] [address] Sodium [Moles/Vol] 135 mmol/L Low 136-145 [facility] Comment on above: Performed By: #### C OVID19 [id number] #### [facility] [address] [place] [address] Urea nitrogen [Mass/Vol] 21 mg/dL Normal 7-24 [facility] Comment on above: Performed By: #### C OVID19 [id number] #### [facility] [address] [place] [address] CBC with DIFFERENTIALon 07-02 Basophils (Bld) [#/Vol] 0.1 10*3/uL Normal 0.0-0.1 [facility] Comment on above: Performed By: #### C OVID19 737686 #### [facility] [address] [place] [address] Basophils/100 WBC (Bld) 0.7 % Normal 0.0-1.0 [facility] Comment on above: Performed By: #### C OVID19 [id number] #### [facility] [address] [place] [address] Eosinophils (Bld) [#/Vol] 0.3 10*3/uL Normal 0.0-0.4 [facility] Comment on above: Performed By: #### C OVID19 417923 #### [facility] [address] [place] [address] Eosinophils/100 WBC (Bld) 3.5 % Normal 1.0-4.0 [facility] Comment on above: Performed By: #### C OVID19 355669 #### [facility] [address] [place] [address] Hematocrit (Bld) [Volume fraction] 41.3 % Low 42.0-52.0 [facility] Comment on above: Performed By: #### C OVID19 [id number] #### [facility] [address] [place] [address] Hemoglobin (Bld) [Mass/Vol] 13.6 g/dL Low 14.0-18.0 [facility] Comment on above: Performed By: #### C OVID19 435724 #### [facility] [address] [place] [address] IG # 0.1 10*3/uL Normal 0.0-0.1 [facility] Comment on above: Performed By: #### C OVID19 257735 #### [facility] [address] [place] [address] IG % 1.0 % Normal 0.0-1.0 [facility] Comment on above: Performed By: #### C OVID19 433202 #### [facility] [address] [place] [address] Lymphocytes (Bld) [#/Vol] 1.8 10*3/uL Normal 1.3-4.4 [facility] Comment on above: Performed By: #### C OVID19 196797 #### [facility] [address] [place] [address] Lymphocytes/100 WBC (Bld) 25.4 % Low 27.0-41.0 [facility] Comment on above: Performed By: #### C OVID19 [id number] #### [facility] [address] [place] [address] MCV (RBC) [Entitic vol] 89.2 fL Normal 80.0-94.0 [facility] Comment on above: Performed By: #### C OVID19 398685 #### [facility] [address] [place] [address] MEAN CORPUSCULAR HGB 29.4 pg Normal 27.0-31.0 [facility] Comment on above: Performed By: #### C OVID19 127336 #### [facility] [address] [place] [address] MEAN CORPUSCULAR HGB CONC 32.9 g/dl Low 33.0-37.0 [facility] Comment on above: Performed By: #### C OVID19 878540 #### [facility] [address] [place] [address] Monocytes (Bld) [#/Vol] 0.6 10*3/uL Normal 0.1-1.0 [facility] Comment on above: Performed By: #### C OVID19 812715 #### [facility] [address] [place] [address] Monocytes/100 WBC (Bld) 7.8 % Normal 3.0-9.0 [facility] Comment on above: Performed By: #### C OVID19 122688 #### [facility] [address] [place] [address] Neutrophils (Bld) [#/Vol] 4.4 10*3/uL Normal 2.3-7.9 [facility] Comment on above: Performed By: #### C OVID19 594999 #### [facility] [address] [place] [address] Neutrophils/100 WBC (Bld) 61.6 % Normal 47.0-73.0 [facility] Comment on above: Performed By: #### C OVID19 553047 #### [facility] [address] [place] [address] NUCLEATED RED BLOOD CELL 0.0 10*3/uL Normal 0.0-0.0 [facility] Comment on above: Performed By: #### C OVID19 713914 #### [facility] [address] [place] [address] NUCLEATED RED BLOOD CELL 0.0 % Normal 0.0-0.0 [facility] Comment on above: Performed By: #### C OVID19 831495 #### [facility] [address] [place] [address] PLATELET COUNT AUTOMATED 137 10*3/uL Normal 130-400 [facility] Comment on above: Performed By: #### C OVID19 607977 #### [facility] [address] [place] [address] Platelet mean volume (Bld) [Entitic vol] 10.0 fL Normal 9.6-12.3 [facility] Comment on above: Performed By: #### C OVID19 282946 #### [facility] [address] [place] [address] RBC (Bld) [#/Vol] 4.63 10*6/uL Normal 4.50-5.90 [facility] Comment on above: Performed By: #### C OVID19 032287 #### [facility] [address] [place] [address] RED CELL DISTRI WIDTH 14.6 % High 0-14.5 [facility] Comment on above: Performed By: #### C OVID19 832976 #### [facility] [address] [place] [address] WBC (Bld) [#/Vol] 7.1 10*3/uL Normal 4.8-10.8 [facility] Comment on above: Performed By: #### C OVID19 629941 #### [facility] [address] [place] [address] NOVL CORONAVIRUS NAAon 07-12 SARS-CoV-2 (COVID-19) RNA LIV+probe Ql (Unsp spec) Not detected Normal Not Detected [facility] Comment on above: Order Comment: Is th is patient considered a Person Under Investigation? N Result Comment: This nucleic acid amplification test was developed and its performance characteristics determined by [facility]. Nucleic acid amplification tests include RT- PCR [...] this assay. Performed By: #### C OVID19 648115 #### [facility] [address] [place] [address] CHEST AP ONLY (1V)on 022 [id number] Name: CHARLI PORRAS Jagjit Phys: LANCE MULLINS DO : 1950 Age: 71 Sex: M Acct: [id number] Loc: 425 1 Exam Date: 07/11/2021 Status: ADM IN Radiology No: [id number] Unit No: [id number] EXAM# TYPE/EXAM RESULT [id number] RAD/CHEST AP ONLY (1V) SEE REPORT INDICATION: [...] CASSIDY Technologist: MURIEL GAUTAM Transcribed Date/Time: 07/11/2021 (8624) Medical Reimbursement Specialist: LEEANNE Printed Date/Time: 07/11/2021 (6258) PAGE 1 Signed Report Normal [facility] SARS COVID 19 ANTIGENon 07-02 SARS [...] with COVID-19. NEGATIVE FOR SARS ANTIGEN Normal [facility] Comment on above: Performed By: #### C OVID19 [id number] #### [facility] [address] [place] [address] BASIC METABOLIC PANELon 03-0 -2021 Calcium [Mass/Vol] 8.9 mg/dL Normal 8.5-10.5 [facility] Comment on above: Performed By: #### B MP, CBCD #### [facility] [address] [place] [address] Chloride [Moles/Vol] 99 mmol/L Normal 98-107 [facility] Comment on above: Performed By: #### B MP, CBCD #### [facility] [address] [place] [address] CO2 [Moles/Vol] 33 mmol/L High 21-32 [facility] Comment on above: Performed By: #### B MP, CBCD #### [facility] [address] [place] [address] Creatinine [Mass/Vol] 1.19 mg/dL Normal 0.70-1.30 [facility] Comment on above: Performed By: #### B MP, CBCD #### [facility] [address] [place] [address] EST GLOM FILT > 60 Normal [facility] Comment on above: Result Comment: Result [...] Performed By: #### B MP, CBCD #### [facility] [address] [place] [address] ESTIMATED GLOM FILT RATE 60 mL/min/ Normal [facility] Comment on above: Performed By: #### B MP, CBCD #### [facility] [address] [place] [address] Glucose [Mass/Vol] 258 mg/dL High 65-99 [facility] Comment on above: Performed By: #### B MP, CBCD #### [facility] [address] [place] [address] Potassium [Moles/Vol] 3.3 mmol/L Low 3.5-5.1 [facility] Comment on above: Performed By: #### B MP, CBCD #### [facility] [address] [place] [address] Sodium [Moles/Vol] 136 mmol/L Normal 136-145 [facility] Comment on above: Performed By: #### B MP, CBCD #### [facility] [address] [place] [address]674 Urea nitrogen [Mass/Vol] 19 mg/dL Normal 7-24 [facility] Comment on above: Performed By: #### B MP, CBCD #### [facility] [address] [place] [address] CBC with DIFFERENTIALon 03-0 Basophils (Bld) [#/Vol] 0.1 10*3/uL Normal 0.0-0.1 [facility] Comment on above: Performed By: #### B MP, CBCD #### [facility] [address] [place] [address] Basophils/100 WBC (Bld) 0.8 % Normal 0.0-1.0 [facility] Comment on above: Performed By: #### B MP, CBCD #### [facility] [address] [place] [address] Eosinophils (Bld) [#/Vol] 0.4 10*3/uL Normal 0.0-0.4 [facility] Comment on above: Performed By: #### B MP, CBCD #### [facility] [address] [place] [address] Eosinophils/100 WBC (Bld) 6.5 % High 1.0-4.0 [facility] Comment on above: Performed By: #### B MP, CBCD #### [facility] [address] [place] [address] Hematocrit (Bld) [Volume fraction] 42.4 % Normal 42.0-52.0 [facility] Comment on above: Performed By: #### B MP, CBCD #### [facility] [address] [place] [address]84[address] Hemoglobin (Bld) [Mass/Vol] 14.1 g/dL Normal 14.0-18.0 [facility] Comment on above: Performed By: #### B MP, CBCD #### [facility] [address] [place] [address] IG # 0.1 10*3/uL Normal 0.0-0.1 [facility] Comment on above: Performed By: #### B MP, CBCD #### [facility] [address] [place] [address] IG % 1.2 % High 0.0-1.0 [facility] Comment on above: Performed By: #### B MP, CBCD #### [facility] [address] [place] [address] Lymphocytes (Bld) [#/Vol] 1.5 10*3/uL Normal 1.3-4.4 [facility] Comment on above: Performed By: #### B MP, CBCD #### [facility] [address] [place] [address] Lymphocytes/100 WBC (Bld) 23.3 % Low 27.0-41.0 [facility] Comment on above: Performed By: #### B MP, CBCD #### [facility] [address] [place] [address] MCV (RBC) [Entitic vol] 88.9 fL Normal 80.0-94.0 [facility] Comment on above: Performed By: #### B MP, CBCD #### [facility] [address] [place] [address] MEAN CORPUSCULAR HGB 29.6 pg Normal 27.0-31.0 [facility] Comment on above: Performed By: #### B MP, CBCD #### [facility] [address] [place] [address] MEAN CORPUSCULAR HGB CONC 33.3 g/dl Normal 33.0-37.0 [facility] Comment on above: Performed By: #### B MP, CBCD #### [facility] [address] [place] [address] Monocytes (Bld) [#/Vol] 0.4 10*3/uL Normal 0.1-1.0 [facility] Comment on above: Performed By: #### B MP, CBCD #### [facility] [address] [place] [address]3576 Monocytes/100 WBC (Bld) 6.8 % Normal 3.0-9.0 [facility] Comment on above: Performed By: #### B MP, CBCD #### [facility] [address] [place] [address]67[address] Neutrophils (Bld) [#/Vol] 4.0 10*3/uL Normal 2.3-7.9 [facility] Comment on above: Performed By: #### B MP, CBCD #### [facility] [address] [place] [address] Neutrophils/100 WBC (Bld) 61.4 % Normal 47.0-73.0 [facility] Comment on above: Performed By: #### B MP, CBCD #### [facility] [address] [place] [address]45[address] NUCLEATED RED BLOOD CELL 0.0 10*3/uL Normal 0.0-0.0 [facility] Comment on above: Performed By: #### B MP, CBCD #### [facility] [address] [place] [address]8530 NUCLEATED RED BLOOD CELL 0.0 % Normal 0.0-0.0 [facility] Comment on above: Performed By: #### B MP, CBCD #### [facility] [address] [place] [address] PLATELET COUNT AUTOMATED 120 10*3/uL Low 130-400 [facility] Comment on above: Performed By: #### B MP, CBCD #### [facility] [address] [place] [address]17[address] Platelet mean volume (Bld) [Entitic vol] 8.9 fL Low 9.6-12.3 [facility] Comment on above: Performed By: #### B MP, CBCD #### [facility] [address] [place] [address]282 RBC (Bld) [#/Vol] 4.77 10*6/uL Normal 4.50-5.90 [facility] Comment on above: Performed By: #### B MP, CBCD #### [facility] [address] [place] [address]40[address] RED CELL DISTRI WIDTH 14.6 % High 0-14.5 [facility] Comment on above: Performed By: #### B MP, CBCD #### [facility] [address] [place] [address]5966 WBC (Bld) [#/Vol] 6.4 10*3/uL Normal 4.8-10.8 [facility] Comment on above: Performed By: #### B MP, CBCD #### [facility] [address] [place] [address] BASIC METABOLIC PANELon 03-0 Calcium [Mass/Vol] 9.0 mg/dL Normal 8.5-10.5 [facility] Comment on above: Performed By: #### C OVID19 267454 #### [facility] [address] [place] [address] Chloride [Moles/Vol] 98 mmol/L Normal 98-107 [facility] Comment on above: Performed By: #### C OVID19 [id number] #### [facility] [address] [place] [address] CO2 [Moles/Vol] 31 mmol/L Normal 21-32 [facility] Comment on above: Performed By: #### C OVID19 253510 #### [facility] [address] [place] [address] Creatinine [Mass/Vol] 1.32 mg/dL High 0.70-1.30 [facility] Comment on above: Performed By: #### C OVID19 104691 #### [facility] [address] [place] [address] EST GLOM FILT > 60 Normal [facility] Comment on above: Result Comment: Result [...] 15 . Performed By: #### C OVID19 570919 #### [facility] [address] [place] [address] ESTIMATED GLOM FILT RATE 53 mL/min/ Low [facility] Comment on above: Performed By: #### C OVID19 664269 #### [facility] [address] [place] [address] Glucose [Mass/Vol] 290 mg/dL High 65-99 [facility] Comment on above: Performed By: #### C OVID19 092586 #### [facility] [address] [place] [address] Potassium [Moles/Vol] 3.2 mmol/L Low 3.5-5.1 [facility] Comment on above: Performed By: #### C OVID19 683326 #### [facility] [address] [place] [address] Sodium [Moles/Vol] 136 mmol/L Normal 136-145 [facility] Comment on above: Performed By: #### C OVID19 506100 #### [facility] [address] [place] [address] Urea nitrogen [Mass/Vol] 19 mg/dL Normal 7-24 [facility] Comment on above: Performed By: #### C OVID19 146347 #### [facility] [address] [place] [address] PROTHROMBIN TIMEon 2 INTERNATIONAL NORM RATIO 2.0 Normal 2.0-3.5 [facility] Comment on above: Result Comment: INR THERAPEUTIC RANGE: GROUP A 2.0-3.0 INR GROUP B 2.5-3.5 INR GROUP A SUGGESTED INDICATIONS: PROPHYLAXIS AND TREATMENT OF VENOUS THROMBOSIS TREATMENT OF PULMONARY EMBOLISM ATRIAL FIBRILLATION GROUP B SUGGESTED INDICATIONS: MECHANICAL PROSTHETIC VALVES Performed By: #### B MP, CBCD #### [facility] [address] [place] [address] PT Coag (PPP) [Time] 19.3 s High 8.9-12.2 [facility] Comment on above: Performed By: #### B MP, CBCD #### [facility] [address] [place] [address] BASIC METABOLIC PANELon 03-0 Calcium [Mass/Vol] 9.1 mg/dL Normal 8.5-10.5 [facility] Comment on above: Performed By: #### B MP, CBCD #### [facility] [address] [place] [address] Chloride [Moles/Vol] 95 mmol/L Low 98-107 [facility] Comment on above: Performed By: #### B MP, CBCD #### [facility] [address] [place] [address] CO2 [Moles/Vol] 30 mmol/L Normal 21-32 [facility] Comment on above: Performed By: #### B GRAY, CBCD #### [facility] [address] [place] [address] Creatinine [Mass/Vol] 1.44 mg/dL High 0.70-1.30 [facility] Comment on above: Performed By: #### B MP, CBCD #### [facility] [address] [place] [address] EST GLOM FILT 58 ml/min [facility] Comment on above: Result Comment: Result [...] Performed By: #### B MP, CBCD #### [facility] [address] [place] [address] ESTIMATED GLOM FILT RATE 48 mL/min/ [facility] Comment on above: Performed By: #### B MP, CBCD #### [facility] [address] [place] [address] Glucose [Mass/Vol] 379 mg/dL High 65-99 [facility] Comment on above: Performed By: #### B MP, CBCD #### [facility] [address] [place] [address] Potassium [Moles/Vol] 3.2 mmol/L Low 3.5-5.1 [facility] Comment on above: Performed By: #### B MP, CBCD #### [facility] [address] [place] [address] Sodium [Moles/Vol] 133 mmol/L Low 136-145 [facility] Comment on above: Performed By: #### B MP, CBCD #### [facility] [address] [place] [address]67 Urea nitrogen [Mass/Vol] 22 mg/dL Normal 7-24 [facility] Comment on above: Performed By: #### B MP, CBCD #### [facility] [address] [place] [address]6457 BLOOD CULTURE AEROBICon 03-0 BLOOD CULTURE AEROBIC BLOOD CULTURE AERO BIC NO BACTERIAL GROWTH BLOOD CULTURE ANAEROBIC NO BACTERIAL GROWTH Normal [facility] Comment on above: Performed By: #### B MP, CBCD #### [facility] [address] [place] [address]1748 CBC with DIFFERENTIALon 03-0 Basophils (Bld) [#/Vol] 0.1 10*3/uL Normal 0.0-0.1 [facility] Comment on above: Performed By: #### B MP, CBCD #### [facility] [address] [place] [address]756 Basophils/100 WBC (Bld) 0.8 % Normal 0.0-1.0 [facility] Comment on above: Performed By: #### B MP, CBCD #### [facility] [address] [place] [address]36 Eosinophils (Bld) [#/Vol] 0.3 10*3/uL Normal 0.0-0.4 [facility] Comment on above: Performed By: #### B MP, CBCD #### [facility] [address] [place] [address] Eosinophils/100 WBC (Bld) 3.8 % Normal 1.0-4.0 [facility] Comment on above: Performed By: #### B MP, CBCD #### [facility] [address] [place] [address] Hematocrit (Bld) [Volume fraction] 40.9 % Low 42.0-52.0 [facility] Comment on above: Performed By: #### B MP, CBCD #### [facility] [address] [place] [address]7422 Hemoglobin (Bld) [Mass/Vol] 13.6 g/dL Low 14.0-18.0 [facility] Comment on above: Performed By: #### B MP, CBCD #### [facility] [address] [place] [address] 78195 IG # 0.1 10*3/uL Normal 0.0-0.1 [facility] Comment on above: Performed By: #### B MP, CBCD #### [facility] [address] [place] [address] 08977 IG % 1.2 % High 0.0-1.0 [facility] Comment on above: Performed By: #### B MP, CBCD #### [facility] [address] [place] [address] Lymphocytes (Bld) [#/Vol] 1.8 10*3/uL Normal 1.3-4.4 [facility] Comment on above: Performed By: #### B MP, CBCD #### [facility] [address] [place] [address] 55634 Lymphocytes/100 WBC (Bld) 23.6 % Low 27.0-41.0 [facility] Comment on above: Performed By: #### B MP, CBCD #### [facility] [address] [place] [address] MCV (RBC) [Entitic vol] 89.9 fL Normal 80.0-94.0 [facility] Comment on above: Performed By: #### B MP, CBCD #### [facility] [address] [place] [address] 82712 MEAN CORPUSCULAR HGB 29.9 pg Normal 27.0-31.0 [facility] Comment on above: Performed By: #### B MP, CBCD #### [facility] [address] [place] [address] 46743 MEAN CORPUSCULAR HGB CONC 33.3 g/dl Normal 33.0-37.0 [facility] Comment on above: Performed By: #### B MP, CBCD #### [facility] [address] [place] [address] 69021 Monocytes (Bld) [#/Vol] 0.5 10*3/uL Normal 0.1-1.0 [facility] Comment on above: Performed By: #### B MP, CBCD #### [facility] [address] [place] [address] 00771 Monocytes/100 WBC (Bld) 7.0 % Normal 3.0-9.0 [facility] Comment on above: Performed By: #### B MP, CBCD #### [facility] [address] [place] [address] 44443 Neutrophils (Bld) [#/Vol] 4.8 10*3/uL Normal 2.3-7.9 [facility] Comment on above: Performed By: #### B MP, CBCD #### [facility] [address] [place] [address] 57693 Neutrophils/100 WBC (Bld) 63.6 % Normal 47.0-73.0 [facility] Comment on above: Performed By: #### B MP, CBCD #### [facility] [address] [place] [address] NUCLEATED RED BLOOD CELL 0.0 10*3/uL Normal 0.0-0.0 [facility] Comment on above: Performed By: #### B MP, CBCD #### [facility] [address] [place] [address] NUCLEATED RED BLOOD CELL 0.0 % Normal 0.0-0.0 [facility] Comment on above: Performed By: #### B MP, CBCD #### [facility] [address] [place] [address] PLATELET COUNT AUTOMATED 138 10*3/uL Normal 130-400 [facility] Comment on above: Performed By: #### B MP, CBCD #### [facility] [address] [place] [address] Platelet mean volume (Bld) [Entitic vol] 9.6 fL Normal 9.6-12.3 [facility] Comment on above: Performed By: #### B MP, CBCD #### [facility] [address] [place] [address] RBC (Bld) [#/Vol] 4.55 10*6/uL Normal 4.50-5.90 [facility] Comment on above: Performed By: #### B MP, CBCD #### [facility] [address] [place] [address] 00303 RED CELL DISTRI WIDTH 14.6 % High 0-14.5 [facility] Comment on above: Performed By: #### B MP, CBCD #### [facility] [address] [place] [address] WBC (Bld) [#/Vol] 7.5 10*3/uL Normal 4.8-10.8 [facility] Comment on above: Performed By: #### B MP, CBCD #### [facility] [address] [place] [address] 50602 PROTHROMBIN TIMEon 2 INTERNATIONAL NORM RATIO 1.7 Low 2.0-3.5 [facility] Comment on above: Result Comment: INR THERAPEUTIC RANGE: GROUP A 2.0-3.0 INR GROUP B 2.5-3.5 INR GROUP A SUGGESTED INDICATIONS: PROPHYLAXIS AND TREATMENT OF VENOUS THROMBOSIS TREATMENT OF PULMONARY EMBOLISM ATRIAL FIBRILLATION GROUP B SUGGESTED INDICATIONS: MECHANICAL PROSTHETIC VALVES Performed By: #### C OVID19 [id number] #### [facility] [address] [place] [address] PT Coag (PPP) [Time] 16.8 s High 8.9-12.2 [facility] Comment on above: Performed By: #### C OVID19 [id number] #### [facility] [address] [place] [address] NOVL CORONAVIRUS NAAon 07-07 SARS-CoV-2 (COVID-19) RNA LIV+probe Ql (Unsp spec) Not detected Normal Not Detected [facility] Comment on above: Order Comment: Is th is patient considered a Person Under Investigation? NADDITIONAL INSTRUCTIONS: FOR SNF Result Comment: This nucleic acid amplification test was developed and its performance characteristics determined by [facility]. Nucleic acid amplification tests include RT- PCR [...] By: #### C BCD, PT, BMP #### [facility] [address] [place] [address] BASIC METABOLIC PANELon 03-0 Calcium [Mass/Vol] 8.6 mg/dL Normal 8.5-10.5 [facility] Comment on above: Performed By: #### C BCNhan, PT, BMP #### [facility] [address] [place] [address] Chloride [Moles/Vol] 102 mmol/L Normal 98-107 [facility] Comment on above: Performed By: #### C BCNhan, PT, BMP #### [facility] [address] [place] [address] CO2 [Moles/Vol] 27 mmol/L Normal 21-32 [facility] Comment on above: Performed By: #### C BCNhan, PT, BMP #### [facility] [address] [place] [address] Creatinine [Mass/Vol] 1.14 mg/dL Normal 0.70-1.30 [facility] Comment on above: Performed By: #### C BCD, PT, BMP #### [facility] [address] [place] [address] EST GLOM FILT > 60 Normal [facility] Comment on above: Result Comment: Result [...] By: #### C BCD, PT, BMP #### [facility] [address] [place] [address] ESTIMATED GLOM FILT RATE > 60 Normal [facility] Comment on above: Performed By: #### C BCD, PT, BMP #### [facility] [address] [place] [address] Glucose [Mass/Vol] 184 mg/dL High 65-99 [facility] Comment on above: Performed By: #### C BCD, PT, BMP #### [facility] [address] [place] [address] Potassium [Moles/Vol] 3.4 mmol/L Low 3.5-5.1 [facility] Comment on above: Performed By: #### C BCNhan, PT, BMP #### [facility] [address] [place] [address] Sodium [Moles/Vol] 135 mmol/L Low 136-145 [facility] Comment on above: Performed By: #### C BCNhan, PT, BMP #### [facility] [address] [place] [address] Urea nitrogen [Mass/Vol] 16 mg/dL Normal 7-24 [facility] Comment on above: Performed By: #### C BCNhan, PT, BMP #### [facility] [address] [place] [address] CBC with DIFFERENTIALon 03-0 -2021 Basophils (Bld) [#/Vol] 0.1 10*3/uL Normal 0.0-0.1 [facility] Comment on above: Performed By: #### C BCD, PT, BMP #### [facility] [address] [place] [address] Basophils/100 WBC (Bld) 1.0 % Normal 0.0-1.0 [facility] Comment on above: Performed By: #### C BCNhan, PT, BMP #### [facility] [address] [place] [address] Eosinophils (Bld) [#/Vol] 0.4 10*3/uL Normal 0.0-0.4 [facility] Comment on above: Performed By: #### C BCD, PT, BMP #### [facility] [address] [place] [address] Eosinophils/100 WBC (Bld) 5.3 % High 1.0-4.0 [facility] Comment on above: Performed By: #### C BCD, PT, BMP #### [facility] [address] [place] [address] Hematocrit (Bld) [Volume fraction] 41.1 % Low 42.0-52.0 [facility] Comment on above: Performed By: #### C BCD, PT, BMP #### [facility] [address] [place] [address] Hemoglobin (Bld) [Mass/Vol] 13.5 g/dL Low 14.0-18.0 [facility] Comment on above: Performed By: #### C BCD, PT, BMP #### [facility] [address] [place] [address] IG # 0.1 10*3/uL Normal 0.0-0.1 [facility] Comment on above: Performed By: #### C BCD, PT, BMP #### [facility] [address] [place] [address] 283[address] IG % 1.3 % High 0.0-1.0 [facility] Comment on above: Performed By: #### C BCD, PT, BMP #### [facility] [address] [place] [address] Lymphocytes (Bld) [#/Vol] 1.7 10*3/uL Normal 1.3-4.4 [facility] Comment on above: Performed By: #### C BCD, PT, BMP #### [facility] [address] [place] [address] Lymphocytes/100 WBC (Bld) 23.5 % Low 27.0-41.0 [facility] Comment on above: Performed By: #### C BCD, PT, BMP #### [facility] [address] [place] [address]73 MCV (RBC) [Entitic vol] 91.3 fL Normal 80.0-94.0 [facility] Comment on above: Performed By: #### C BCNhan, PT, BMP #### [facility] [address] [place] [address] 21189 MEAN CORPUSCULAR HGB 30.0 pg Normal 27.0-31.0 [facility] Comment on above: Performed By: #### C BCNhan, PT, BMP #### [facility] [address] [place] [address] MEAN CORPUSCULAR HGB CONC 32.8 g/dl Low 33.0-37.0 [facility] Comment on above: Performed By: #### C BCNhan, PT, BMP #### [facility] [address] [place] [address]39 Monocytes (Bld) [#/Vol] 0.6 10*3/uL Normal 0.1-1.0 [facility] Comment on above: Performed By: #### C BCD, PT, BMP #### [facility] [address] [place] [address] 14756 Monocytes/100 WBC (Bld) 8.4 % Normal 3.0-9.0 [facility] Comment on above: Performed By: #### C BCNhan, PT, BMP #### [facility] [address] [place] [address] Neutrophils (Bld) [#/Vol] 4.3 10*3/uL Normal 2.3-7.9 [facility] Comment on above: Performed By: #### C BCD, PT, BMP #### [facility] [address] [place] [address] 98400 Neutrophils/100 WBC (Bld) 60.5 % Normal 47.0-73.0 [facility] Comment on above: Performed By: #### C BCD, PT, BMP #### [facility] [address] [place] [address] 90607 NUCLEATED RED BLOOD CELL 0.0 10*3/uL Normal 0.0-0.0 [facility] Comment on above: Performed By: #### C BCNhan, PT, BMP #### [facility] [address] [place] [address]104 NUCLEATED RED BLOOD CELL 0.0 % Normal 0.0-0.0 [facility] Comment on above: Performed By: #### Jagjit BCNhan, PT, BMP #### [facility] [address] [place] [address] PLATELET COUNT AUTOMATED 138 10*3/uL Normal 130-400 [facility] Comment on above: Performed By: #### C BCNhan, PT, BMP #### [facility] [address] [place] [address] 21297 Platelet mean volume (Bld) [Entitic vol] 9.1 fL Low 9.6-12.3 [facility] Comment on above: Performed By: #### Jagjit PEREZ, PT, BMP #### [facility] [address] [place] [address] 25456 RBC (Bld) [#/Vol] 4.50 10*6/uL Normal 4.50-5.90 [facility] Comment on above: Performed By: #### C BCNhan, PT, BMP #### [facility] [address] [place] [address] 89017 RED CELL DISTRI WIDTH 15.0 % High 0-14.5 [facility] Comment on above: Performed By: #### C BCD, PT, BMP #### [facility] [address] [place] [address]4925 WBC (Bld) [#/Vol] 7.1 10*3/uL Normal 4.8-10.8 [facility] Comment on above: Performed By: #### C BCD, PT, BMP #### [facility] [address] [place] [address] MAGNESIUMon 07-05-2021 Magnesium [Mass/Vol] 1.9 mg/dL Normal 1.5-2.1 [facility] Comment on above: Performed By: #### C BCD, PT, BMP #### [facility] [address] [place] [address] PROTHROMBIN TIMEon 2 INTERNATIONAL NORM RATIO 1.3 Low 2.0-3.5 [facility] Comment on above: Result Comment: INR THERAPEUTIC RANGE: GROUP A 2.0-3.0 INR GROUP B 2.5-3.5 INR GROUP A SUGGESTED INDICATIONS: PROPHYLAXIS AND TREATMENT OF VENOUS THROMBOSIS TREATMENT OF PULMONARY EMBOLISM ATRIAL FIBRILLATION GROUP B SUGGESTED INDICATIONS: MECHANICAL PROSTHETIC VALVES Performed By: #### C BCD, PT, BMP #### [facility] [address] [place] [address] PT Coag (PPP) [Time] 12.6 s High 8.9-12.2 [facility] Comment on above: Performed By: #### C BCD, PT, BMP #### [facility] [address] [place] [address] ALBUMIN ([facility])on 07-05-19 22 Albumin [Mass/Vol] 3.5 g/dL Abnormal 3.7-4.7 [facility] Comment on above: Result Comment: Perf ormed at: CB - [facility] [address] [id number] 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: Luis Alfredo Gutierres PhD, Phone: [phone] Performed By: #### C [id number] [id number] #### [facility] [address] [place] [phone] BASIC METABOLIC PANELon Calcium [Mass/Vol] 8.6 mg/dL Normal 8.5-10.5 [facility] Comment on above: Performed By: #### C BCD, PT, BMP #### [facility] [address] [place] [address] Chloride [Moles/Vol] 104 mmol/L Normal 98-107 [facility] Comment on above: Performed By: #### C BCD, PT, BMP #### [facility] [address] [place] [address] CO2 [Moles/Vol] 28 mmol/L Normal 21-32 [facility] Comment on above: Performed By: #### C CHRIS PT, BMP #### [facility] [address] [place] [address] Creatinine [Mass/Vol] 1.22 mg/dL Normal 0.70-1.30 [facility] Comment on above: Performed By: #### C CHRIS, PT, BMP #### [facility] [address] [place] [address] EST GLOM FILT > 60 Normal [facility] Comment on above: Result Comment: Result [...] By: #### C CHRIS, PT, BMP #### [facility] [address] [place] [address] ESTIMATED GLOM FILT RATE 58 mL/min/ Low [facility] Comment on above: Performed By: #### C CHRIS, PT, BMP #### [facility] [address] [place] [address] Glucose [Mass/Vol] 169 mg/dL High 65-99 [facility] Comment on above: Performed By: #### C CHRIS, PT, BMP #### [facility] [address] [place] [address] Potassium [Moles/Vol] 3.4 mmol/L Low 3.5-5.1 [facility] Comment on above: Performed By: #### C CHRIS, PT, BMP #### [facility] [address] [place] [address] Sodium [Moles/Vol] 138 mmol/L Normal 136-145 [facility] Comment on above: Performed By: #### C BCD, PT, BMP #### [facility] [address] [place] [address] Urea nitrogen [Mass/Vol] 17 mg/dL Normal 7-24 [facility] Comment on above: Performed By: #### C BCD, PT, BMP #### [facility] [address] [place] [address]1597 CBC with DIFFERENTIALon 03-0 -2021 Basophils (Bld) [#/Vol] 0.1 10*3/uL Normal 0.0-0.1 [facility] Comment on above: Performed By: #### C BCD, PT, BMP #### [facility] [address] [place] [address] 93575 Basophils/100 WBC (Bld) 0.8 % Normal 0.0-1.0 [facility] Comment on above: Performed By: #### C BCD, PT, BMP #### [facility] [address] [place] [address] Eosinophils (Bld) [#/Vol] 0.3 10*3/uL Normal 0.0-0.4 [facility] Comment on above: Performed By: #### C BCD, PT, BMP #### [facility] [address] [place] [address] 31163 Eosinophils/100 WBC (Bld) 3.8 % Normal 1.0-4.0 [facility] Comment on above: Performed By: #### C BCD, PT, BMP #### [facility] [address] [place] [address] Hematocrit (Bld) [Volume fraction] 41.4 % Low 42.0-52.0 [facility] Comment on above: Performed By: #### C BCD, PT, BMP #### [facility] [address] [place] [address] Hemoglobin (Bld) [Mass/Vol] 13.6 g/dL Low 14.0-18.0 [facility] Comment on above: Performed By: #### C BCD, PT, BMP #### [facility] [address] [place] [address] IG # 0.1 10*3/uL Normal 0.0-0.1 [facility] Comment on above: Performed By: #### C BCD, PT, BMP #### [facility] [address] [place] [address]308 IG % 1.2 % High 0.0-1.0 [facility] Comment on above: Performed By: #### C BCD, PT, BMP #### [facility] [address] [place] [address] 81181 Lymphocytes (Bld) [#/Vol] 1.7 10*3/uL Normal 1.3-4.4 [facility] Comment on above: Performed By: #### C BCD, PT, BMP #### [facility] [address] [place] [address] 79319 Lymphocytes/100 WBC (Bld) 25.2 % Low 27.0-41.0 [facility] Comment on above: Performed By: #### C BCD, PT, BMP #### [facility] [address] [place] [address] 88916 MCV (RBC) [Entitic vol] 89.4 fL Normal 80.0-94.0 [facility] Comment on above: Performed By: #### C BCD, PT, BMP #### [facility] [address] [place] [address] 03071 MEAN CORPUSCULAR HGB 29.4 pg Normal 27.0-31.0 [facility] Comment on above: Performed By: #### C BCD, PT, BMP #### [facility] [address] [place] [address] 29121 MEAN CORPUSCULAR HGB CONC 32.9 g/dl Low 33.0-37.0 [facility] Comment on above: Performed By: #### C BCD, PT, BMP #### [facility] [address] [place] [address] Monocytes (Bld) [#/Vol] 0.6 10*3/uL Normal 0.1-1.0 [facility] Comment on above: Performed By: #### C BCD, PT, BMP #### [facility] [address] [place] [address] Monocytes/100 WBC (Bld) 9.2 % High 3.0-9.0 [facility] Comment on above: Performed By: #### C BCD, PT, BMP #### [facility] [address] [place] [address] 92664 Neutrophils (Bld) [#/Vol] 3.9 10*3/uL Normal 2.3-7.9 [facility] Comment on above: Performed By: #### C BCD, PT, BMP #### [facility] [address] [place] [address] Neutrophils/100 WBC (Bld) 59.8 % Normal 47.0-73.0 [facility] Comment on above: Performed By: #### C BCD, PT, BMP #### [facility] [address] [place] [address] NUCLEATED RED BLOOD CELL 0.0 10*3/uL Normal 0.0-0.0 [facility] Comment on above: Performed By: #### C BCD, PT, BMP #### [facility] [address] [place] [address] NUCLEATED RED BLOOD CELL 0.0 % Normal 0.0-0.0 [facility] Comment on above: Performed By: #### C BCD, PT, BMP #### [facility] [address] [place] [address] 32637 PLATELET COUNT AUTOMATED 142 10*3/uL Normal 130-400 [facility] Comment on above: Performed By: #### C BCD, PT, BMP #### [facility] [address] [place] [address] 49171 Platelet mean volume (Bld) [Entitic vol] 9.2 fL Low 9.6-12.3 [facility] Comment on above: Performed By: #### C BCNhan, PT, BMP #### [facility] [address] [place] [address] RBC (Bld) [#/Vol] 4.63 10*6/uL Normal 4.50-5.90 [facility] Comment on above: Performed By: #### C BCNhan, PT, BMP #### [facility] [address] [place] [address] RED CELL DISTRI WIDTH 14.9 % High 0-14.5 [facility] Comment on above: Performed By: #### C BCNhan, PT, BMP #### [facility] [address] [place] [address] WBC (Bld) [#/Vol] 6.6 10*3/uL Normal 4.8-10.8 [facility] Comment on above: Performed By: #### C BCNhan, PT, BMP #### [facility] [address] [place] [address]241 GRAM STAINon 07-04-2021 Microscopic observation Gram stain Nom (Unsp spec) GRAM STAIN FEW WHITE BLOOD CELLS FEW GRAM POSITIVE COCCI IN PAIRS WOUND CULTURE SKIN DARYN:PROBABLE CONTAMINATE Normal [facility] Comment on above: Performed By: #### C BCNhan, PT, BMP #### [facility] [address] [place] [address] OPERATIVE NOTEon 07-04-2021 [employer] Manager Production Report [place], [place] OPERATIVE NOTE NAME: CHARLI PORRAS Jagjit UNIT #: [id number] ROOM: [facility] DOCTOR: BLAINE GUZMÁN DPM BIRTHDATE: [birth year] DOS: 07/04/2021 IN-HOUSE SURGICAL OPERATIVE REPORT PREOPERATIVE DIAGNOSIS: Osteomyelitis, fourth right toe. POSTOPERATIVE DIAGNOSIS: Osteomyelitis, fourth right toe. 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 ANESTHESIA: LMAC. ESTIMATED BLOOD LOSS: 5 mL TOURNIQUET: None. SURGEON: Blaine Guzmán DPM. POCKET BUILDER: Luis Mckeon DPM. DRAINS: None. PACKING: None. [...] later today and tomorrow by the resident application helper. BLAINE GUZMÁN DPM [place], [place] OPERATIVE NOTE NAME: CHARLI PORRAS UNIT #: [id number] ROOM: 425 DOCTOR: BLAINE GUZMÁN DPM BIRTHDATE: [birth year] JOSE/YESENIA TID: [id number] CM:OPRECORD:OPERATIVE NOTE 1324 BLAINE GUZMÁN DPM 07/04/21 1428 interface Normal [facility] POST OPERATIVE PROGRESS NOTE on 07-04-2021 [employer] Manager Production Report [place], [place] POST OPERATIVE PROGRESS NOTE NAME: CHARLI PORRAS UNIT #: [id number] STATUS: ADM IN SURGEON: RADU ANAND DPM [...] Anesthesia: MAC CM:POSTOP DICT: RADU ANAND DPM [id number] [facility] Seed [employer] Manager Production Report [place], [place] POST OPERATIVE PROGRESS NOTE NAME: CHARLI PORRAS UNIT #: [id number] STATUS: ADM IN SURGEON: BLAINE GUZMÁN DPM [...] DPM Anesthesia: LMAC at 1224 CM:POSTOP DICT: LBAINE GUZMÁN DPM Electronically Signed 07/04/21 1224 [id number] Normal [facility] PROTHROMBIN TIMEon 2 INTERNATIONAL NORM RATIO 1.6 Low 2.0-3.5 [facility] Comment on above: Result Comment: INR THERAPEUTIC RANGE: GROUP A 2.0-3.0 INR GROUP B 2.5-3.5 INR GROUP A SUGGESTED INDICATIONS: PROPHYLAXIS AND TREATMENT OF VENOUS THROMBOSIS TREATMENT OF PULMONARY EMBOLISM ATRIAL FIBRILLATION GROUP B SUGGESTED INDICATIONS: MECHANICAL PROSTHETIC VALVES Performed By: #### C BCD, PT, BMP #### [facility] [address] [place] [address] 19467 PT Coag (PPP) [Time] 15.9 s High 8.9-12.2 [facility] Comment on above: Performed By: #### C BCD, PT, BMP #### [facility] [address] [place] [address] 91656 TOEon 07-04-2021 TOE - -------- RUN DATE: 07/15/21 [facility] LIVE PAGE 1 RUN TIME: 1509 Specimen Inquiry RUN USER: INTERFACE -------- PATIENT: CHARLI PORRAS LOC: 4E U #: [id number] AGE/SX: 71/M ROOM: [facility] RE07/02/[address]: HERIBERTO CHRISTIANSEN DO : [birth year] BED: 1 DIS: 07/12/21 STATUS: DIS IN TLOC: -------- SPEC #: [id number] RECD: 07/05/21 STATUS: OPAL CURRY #: [id number] ERIC: 07/04/21- SUBM DR: ZARINA AUGUSTIN,BLAINE Cee ENTERED: 07/05/21 SP TYPE: TOE OTHR DR: KULDIP MARCOS,HERIBERTO CASSIDY,ERICKA LAGUNA ORDERED: [facility], LEVEL 3 ([id number]), SURGICAL SPEC COMMENTS: REFERRING MEDICAL DOCTOR: MARCO SURGEON: MARCO # OF CONTAINERS 1 TISSUE SUBMITTED: RIGHT FOURTH TOE PROCEDURE: AMPUTATION RIGHT FOURTH TOE PRELIMINARY DIAGNOSIS: OSTEOMYLITIS RIGHT FOOT ADDENDUM Addendum #1 Entered: 07/12/21 The margin of excision is negative for osteomyelitis. Addendum Signed TESS ADRIAN 07/15/21 1509 -------- FINAL DIAGNOSIS (Based on gross and microscopic [...] is deformed. The skin is peeling off. Dispensing Lead sections submitted in two cassettes. SURGICAL PROCEDURE: AMPUTATION RIGHT FOURTH TOE CONTINUED ON NEXT PAGE -------- RUN DATE: 07/15/21 [facility] LIVE PAGE 2 RUN TIME: 1509 Specimen Inquiry RUN USER: INTERFACE -------- SPEC #: [id number] PATIENT: CHARLI PORRAS #[id number] (Continued) -------- TISSUE SUBMITTED RIGHT FOURTH TOE -------- Signed TESS ADRIAN 07/10/21 1449 -------- END OF REPORT Normal [facility] Comment on above: Order Comment: REFER RING MEDICAL DOCTOR: KINDRA: MARCO# OF CONTAINERS 1TISSUE SUBMITTED: RIGHT FOURTH TOEPROCEDURE: AMPUTATION RIGHT FOURTH TOEPRELIMINARY DIAGNOSIS: OSTEOMYLITIS RIGHT FOOT Performed By: #### C BCD, PT, BMP #### [facility] [address] [place] [address] US ARTERIAL LOWER EXT BILATo n 07-04-2021 USARTLEB Name: CHARLI PORRAS Phys: RADU ANAND DPM : 1950 Age: 71 Sex: M Acct: [id number] Loc: 425 1 Exam Date: 07/03/2021 Status: ADM IN Radiology No: [id number] Unit No: [id number] EXAM# TYPE/EXAM RESULT [id number] US/US ARTERIAL LOWER EXT BILAT SEE REPORT [...] follows: Right EIA: 163 cm/s, triphasic Right AUTOMATIC CLIPPER AND STRIPPER: 145 cm/s, triphasic Right Proximal SFA: 127 cm/s, triphasic Right Mid SFA: 129 cm/s, triphasic Right Distal SFA: 79 cm/s, triphasic Right Popliteal: 134 cm/s, triphasic Right ANIMAL KILLER: 182 cm/s, biphasic Right KENN: 162 cm/s, biphasic Right Peroneal: no images obtained The peak velocities and waveforms in the left lower extremity are as follows: Left EIA: 167 cm/s, triphasic Left AUTOMATIC CLIPPER AND STRIPPER: 168/ cm/s, triphasic Left Proximal SFA: 157 cm/s, triphasic Left Mid SFA: 93 cm/s, triphasic Left Distal SFA: 99 cm/s, triphasic Left Popliteal: 102 cm/s, triphasic Left ANIMAL KILLER: 191 cm/s, triphasic Left KENN: 113 cm/s, biphasic Left dorsalis pedis: 71 cm/s, monophasic PAGE 1 Signed Report (CONTINUED) Name: CHARLI PORRAS Phys: RADU ANAND DPM : 1950 Age: 71 Sex: M Acct: [id number] Loc: 425 1 Exam Date: 07/03/2021 Status: ADM IN Radiology No: [id number] Unit No: [id number] EXAM# TYPE/EXAM RESULT [id number] US/US ARTERIAL LOWER EXT BILAT SEE REPORT IMPRESSION: Limited evaluation. No evidence of significant arterial disease suggested. Signed by Lizz Oscar MD REPORT SIGNED IN OTHER VENDOR SYSTEM 07/04/2021 Reported By: LIZZ OSCAR MD CC: ERICKA CASSIDY Technologist: ZULEMA WORTHY Transcribed Date/Time: 07/04/2021 (916) Medical Reimbursement Specialist: LEEANNE Printed Date/Time: 07/04/2021 (916) PAGE 2 Signed Report Normal [facility] ACT PARTIAL THROMBO TIMEon 0 07-03-2021 ACT PARTIAL THROMBO TIME 46.1 SECONDS High 20.0-32.1 [facility] Comment on above: Result Comment: APTT THERAPEUTIC RANGE = 51.3 TO 62.7 SECONDS Performed By: #### C BCD, PT, BMP #### [facility] [address] [place] [address] ALBUMIN ([facility])on 07-04-19 Albumin [Mass/Vol] 3.8 g/dL Normal 3.7-4.7 [facility] Comment on above: Result Comment: Perf ormed at: CB - [facility] [address] [id number] 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: Luis Alfredo Gutierres PhD, Phone: [phone] Performed By: #### B MP, CBCD #### [facility] [address] [place] [address] 02842 CBC with DIFFERENTIALon Basophils (Bld) [#/Vol] 0.0 10*3/uL Normal 0.0-0.1 [facility] Comment on above: Performed By: #### C BCD, PT, BMP #### [facility] [address] [place] [address] 34813 Basophils/100 WBC (Bld) 0.6 % Normal 0.0-1.0 [facility] Comment on above: Performed By: #### C BCD, PT, BMP #### [facility] [address] [place] [address] 58319 Eosinophils (Bld) [#/Vol] 0.2 10*3/uL Normal 0.0-0.4 [facility] Comment on above: Performed By: #### C BCD, PT, BMP #### [facility] [address] [place] [address] 77443 Eosinophils/100 WBC (Bld) 2.8 % Normal 1.0-4.0 [facility] Comment on above: Performed By: #### C BCD, PT, BMP #### [facility] [address] [place] [address] 82621 Hematocrit (Bld) [Volume fraction] 42.6 % Normal 42.0-52.0 [facility] Comment on above: Performed By: #### C BCD, PT, BMP #### [facility] [address] [place] [address] 95723 Hemoglobin (Bld) [Mass/Vol] 14.1 g/dL Normal 14.0-18.0 [facility] Comment on above: Performed By: #### C BCD, PT, BMP #### [facility] [address] [place] [address] 90471 IG # 0.1 10*3/uL Normal 0.0-0.1 [facility] Comment on above: Performed By: #### C BCD, PT, BMP #### [facility] [address] [place] [address] IG % 1.3 % High 0.0-1.0 [facility] Comment on above: Performed By: #### C BCD, PT, BMP #### [facility] [address] [place] [address] 40997 Lymphocytes (Bld) [#/Vol] 1.4 10*3/uL Normal 1.3-4.4 [facility] Comment on above: Performed By: #### C BCD, PT, BMP #### [facility] [address] [place] [address] 44471 Lymphocytes/100 WBC (Bld) 22.2 % Low 27.0-41.0 [facility] Comment on above: Performed By: #### C BCD, PT, BMP #### [facility] [address] [place] [address] 74505 MCV (RBC) [Entitic vol] 89.7 fL Normal 80.0-94.0 [facility] Comment on above: Performed By: #### C BCD, PT, BMP #### [facility] [address] [place] [address] 71356 MEAN CORPUSCULAR HGB 29.7 pg Normal 27.0-31.0 [facility] Comment on above: Performed By: #### C BCD, PT, BMP #### [facility] [address] [place] [address] 35022 MEAN CORPUSCULAR HGB CONC 33.1 g/dl Normal 33.0-37.0 [facility] Comment on above: Performed By: #### C BCD, PT, BMP #### [facility] [address] [place] [address] 65790 Monocytes (Bld) [#/Vol] 0.6 10*3/uL Normal 0.1-1.0 [facility] Comment on above: Performed By: #### C BCD, PT, BMP #### [facility] [address] [place] [address] 86085 Monocytes/100 WBC (Bld) 9.9 % High 3.0-9.0 [facility] Comment on above: Performed By: #### C BCD, PT, BMP #### [facility] [address] [place] [address] Neutrophils (Bld) [#/Vol] 4.0 10*3/uL Normal 2.3-7.9 [facility] Comment on above: Performed By: #### C BCD, PT, BMP #### [facility] [address] [place] [address] Neutrophils/100 WBC (Bld) 63.2 % Normal 47.0-73.0 [facility] Comment on above: Performed By: #### C BCD, PT, BMP #### [facility] [address] [place] [address] NUCLEATED RED BLOOD CELL 0.0 10*3/uL Normal 0.0-0.0 [facility] Comment on above: Performed By: #### C BCD, PT, BMP #### [facility] [address] [place] [address] 44559 NUCLEATED RED BLOOD CELL 0.0 % Normal 0.0-0.0 [facility] Comment on above: Performed By: #### C BCD, PT, BMP #### [facility] [address] [place] [address] PLATELET COUNT AUTOMATED 146 10*3/uL Normal 130-400 [facility] Comment on above: Performed By: #### C BCD, PT, BMP #### [facility] [address] [place] [address] Platelet mean volume (Bld) [Entitic vol] 9.5 fL Low 9.6-12.3 [facility] Comment on above: Performed By: #### C BCD, PT, BMP #### [facility] [address] [place] [address] RBC (Bld) [#/Vol] 4.75 10*6/uL Normal 4.50-5.90 [facility] Comment on above: Performed By: #### C BCD, PT, BMP #### [facility] [address] [place] [address]259 RED CELL DISTRI WIDTH 14.7 % High 0-14.5 [facility] Comment on above: Performed By: #### C BCD, PT, BMP #### [facility] [address] [place] [address] 37661 WBC (Bld) [#/Vol] 6.4 10*3/uL Normal 4.8-10.8 [facility] Comment on above: Performed By: #### C BCD, PT, BMP #### [facility] [address] [place] [address] CHEST AP ONLY (1V)on 022 [id number] Name: PILOLARRYThaliaCHARLI Jagjit Phys: ANMOL MASCORRO DO : 1950 Age: 71 Sex: M Acct: [id number] Loc: 425 1 Exam Date: 07/03/2021 Status: ADM IN Radiology No: [id number] Unit No: [id number] EXAM# TYPE/EXAM RESULT [id number] RAD/CHEST AP ONLY (1V) SEE REPORT INDICATION: [...] CASSIDY Technologist: CRISTINA NICOLE Transcribed Date/Time: 07/03/2021 (2105) Medical Reimbursement Specialist: LEEANNE Printed Date/Time: 07/03/2021 (0155) PAGE 1 Signed Report Normal [facility] COMPREHENSIVE METABOLIC PANE Nolan 07-03-2021 ALBUMIN. ND Normal [facility] Comment on above: Result Comment: See send out ALBUMIN from [facility]. Performed By: #### C BCD, PT, BMP #### [facility] [address] [place] [address] ALP [Catalytic activity/Vol] 85 U/L Normal 45-117 [facility] Comment on above: Performed By: #### C BCD, PT, BMP #### [facility] [address] [place] [address] ALT [Catalytic activity/Vol] 31 U/L Normal 12-78 [facility] Comment on above: Performed By: #### C BCD, PT, BMP #### [facility] [address] [place] [address] AST [Catalytic activity/Vol] 23 U/L Normal 3-35 [facility] Comment on above: Performed By: #### C BCD, PT, BMP #### [facility] [address] [place] [address] Bilirubin [Mass/Vol] 0.7 mg/dL Normal 0.2-1.0 [facility] Comment on above: Performed By: #### C BCD, PT, BMP #### [facility] [address] [place] [address] Calcium [Mass/Vol] 8.7 mg/dL Normal 8.5-10.5 [facility] Comment on above: Performed By: #### C BCD, PT, BMP #### [facility] [address] [place] [address] Chloride [Moles/Vol] 103 mmol/L Normal 98-107 [facility] Comment on above: Performed By: #### C BCD, PT, BMP #### [facility] [address] [place] [address] CO2 [Moles/Vol] 27 mmol/L Normal 21-32 [facility] Comment on above: Performed By: #### C BCD, PT, BMP #### [facility] [address] [place] [address] Creatinine [Mass/Vol] 1.16 mg/dL Normal 0.70-1.30 [facility] Comment on above: Performed By: #### C BCD, PT, BMP #### [facility] [address] [place] [address] EST GLOM FILT > 60 Normal [facility] Comment on above: Result Comment: Result [...] By: #### C BCNhan, PT, BMP #### [facility] [address] [place] [address] ESTIMATED GLOM FILT RATE > 60 Normal [facility] Comment on above: Performed By: #### C BCNhan, PT, BMP #### [facility] [address] [place] [address] Glucose [Mass/Vol] 171 mg/dL High 65-99 [facility] Comment on above: Performed By: #### C BCD, PT, BMP #### [facility] [address] [place] [address] Potassium [Moles/Vol] 3.4 mmol/L Low 3.5-5.1 [facility] Comment on above: Performed By: #### C BCD, PT, BMP #### [facility] [address] [place] [address] Protein [Mass/Vol] 7.0 g/dL Normal 6.4-8.2 [facility] Comment on above: Performed By: #### C BCD, PT, BMP #### [facility] [address] [place] [address] Sodium [Moles/Vol] 136 mmol/L Normal 136-145 [facility] Comment on above: Performed By: #### C BCD, PT, BMP #### [facility] [address] [place] [address] Urea nitrogen [Mass/Vol] 14 mg/dL Normal 7-24 [facility] Comment on above: Performed By: #### C BCNhan, PT, BMP #### [facility] [address] [place] [address] CONTRAST/ECHO COMPLETEon CRDECCON Name: PILOLARRYThaliaCHARLI Phys: GREGG BONNER DO : 1950 Age: 71 Sex: M Acct: [id number] Loc: 425 1 Exam Date: 07/03/2021 Status: ADM IN Radiology No: [id number] Unit No: [id number] EXAM# TYPE/EXAM RESULT [id number] ECHO/CONTRAST/ECHO COMPLETE SEE REPORT AN ADDENDUM IS [...] : 1950 Age: 71 Sex: M Acct: [id number] Loc: 425 1 Exam Date: 07/03/2021 Status: ADM IN Radiology No: [id number] Unit No: [id number] EXAM# TYPE/EXAM RESULT [id number] ECHO/CONTRAST/ECHO COMPLETE SEE REPORT AN ADDENDUM IS [...] : 1950 Age: 71 Sex: M Acct: [id number] Loc: 425 1 Exam Date: 07/03/2021 Status: ADM IN Radiology No: [id number] Unit No: [id number] EXAM# TYPE/EXAM RESULT [id number] ECHO/CONTRAST/ECHO COMPLETE SEE REPORT AN ADDENDUM IS [...] : 1950 Age: 71 Sex: M Acct: [id number] Loc: 425 1 Exam Date: 07/03/2021 Status: ADM IN Radiology No: [id number] Unit No: [id number] EXAM# TYPE/EXAM RESULT [id number] ECHO/CONTRAST/ECHO COMPLETE SEE REPORT AN ADDENDUM IS [...] : 1950 Age: 71 Sex: M Acct: [id number] Loc: 425 1 Exam Date: 07/03/2021 Status: ADM IN Radiology No: [id number] Unit No: [id number] (more content not included)... Normal [facility] FOLIC ACIDon 07-03-2021 FOLIC ACID 23.06 ng/mL Normal >5.38 [facility] Comment on above: Result Comment: 0.35 - 3.7 ng/mL - Folate Deficiency 3.38 - 5.38 ng/mL - Indeterminate > 5.38 ng/mL - Normal Performed By: #### C CHRIS PT, BMP #### [facility] [address] [place] [address] 13986 FREE T4on 07-03-2021 Free T4 [Mass/Vol] 0.85 ng/dL Normal 0.76-1.46 [facility] Comment on above: Performed By: #### C MAGI PEREZ, BMP #### [facility] [address] [place] [address] 25085 JNE9Yle 07-03-2021 ESTIMATED AVERAGE GLUCOSE 226 Normal [facility] Comment on above: Performed By: #### C CHRIS PT, BMP #### [facility] [address] [place] [address]407 HbA1c (Bld) [Mass fraction] 9.5 % High 4.8-5.6 [facility] Comment on above: Result Comment: Standarization of method based on National Glycohemoglobin Standardization Program (NGSP). HEMOGLOBIN A1c(%) DEGREE of GLUCOSE CONTROL 5.7-6.4% Prediabetes range >6.4% Diagnosis of Diabetes <7% Glycemic control for adults with Diabetes Performed By: #### C CHRIS, PT, BMP #### [facility] [address] [place] [address] 543[address] LIPID PANELon 07-03-2021 Cholesterol [Mass/Vol] 102 mg/dL Normal <200 [facility] Comment on above: Performed By: #### C BCD, PT, BMP #### [facility] [address] [place] [address] Cholesterol in HDL [Mass/Vol] 34 mg/dL Low 40-60 [facility] Comment on above: Performed By: #### C BCD, PT, BMP #### [facility] [address] [place] [address] Cholesterol in LDL [Mass/Vol] 20 mg/dL Normal 9-159 [facility] Comment on above: Performed By: #### C BCD, PT, BMP #### [facility] [address] [place] [address] Triglyceride [Mass/Vol] 241 mg/dL High <150 E [facility] Comment on above: Result Comment: TRIGLYCERIDE RISK ASSESSMENT: 150-199 mg/dl BORDERLINE HIGH >200 mg//dl HIGH . Performed By: #### C BCD, PT, BMP #### [facility] [address] [place] [address] VLDL CHOLESTEROL 48 mg/dL High 6-40 [facility] Comment on above: Performed By: #### C BCD, PT, BMP #### [facility] [address] [place] [address] MAGNESIUMon 07-03-2021 Magnesium [Mass/Vol] 1.8 mg/dL Normal 1.5-2.1 [facility] Comment on above: Performed By: #### C BCD, PT, BMP #### [facility] [address] [place] [address] PHOSPHOROUSon 07-03-2021 PHOSPHOROUS 3.7 mg/dL Normal 2.5-4.9 [facility] Comment on above: Performed By: #### C BCD, PT, BMP #### [facility] [address] [place] [address] PROTHROMBIN TIMEon 2 INTERNATIONAL NORM RATIO 2.5 Normal 2.0-3.5 [facility] Comment on above: Result Comment: INR THERAPEUTIC RANGE: GROUP A 2.0-3.0 INR GROUP B 2.5-3.5 INR GROUP A SUGGESTED INDICATIONS: PROPHYLAXIS AND TREATMENT OF VENOUS THROMBOSIS TREATMENT OF PULMONARY EMBOLISM ATRIAL FIBRILLATION GROUP B SUGGESTED INDICATIONS: MECHANICAL PROSTHETIC VALVES Performed By: #### C BCD, PT, BMP #### [facility] [address] [place] [address] PT Coag (PPP) [Time] 24.2 s High 8.9-12.2 [facility] Comment on above: Performed By: #### C BCD, PT, BMP #### [facility] [address] [place] [address] THYROID STIM HORMONE (HS)on 07-03-2021 THYROID STIM HORMONE (HS) 2.660 uIU/ml Normal 0.358-4.75 [facility] Comment on above: Performed By: #### C BCD, PT, BMP #### [facility] [address] [place] [address] VITAMIN B12on 07-03-2021 Cobalamin (Vitamin B12) [Mass/Vol] 528 pg/mL Normal 247-911 [facility] Comment on above: Result Comment: 247 - 911 pg/mL - Normal, Vitamin B12 Sufficiency Performed By: #### C BCD, PT, BMP #### [facility] [address] [place] [address] 13055 VITAMIN D, 25-HYDROXYon 03-0 VITAMIN D, 25-HYDROXY 25.6 ng/mL Low 30-100 [facility] Comment on above: Result Comment: < 20 ng/mL - Vitamin D Deficiency 20 - 30 ng/mL - Vitamin D Insufficiency 30 - 100 ng/mL - Vitamin D sufficiency > 100 ng/mL - Vitamin D Toxicity Performed By: #### C [id number] [id number] #### [facility] [address] [place] [address] ACT PARTIAL THROMBO TIMEon 0 07-02-2021 ACT PARTIAL THROMBO TIME 46.4 SECONDS High 20.0-32.1 [facility] Comment on above: Result Comment: APTT THERAPEUTIC RANGE = 51.3 TO 62.7 SECONDS Performed By: #### L ABASE, CMP, PT, CBCD, APTT #### [facility] [address] [place] [address] #### ALB SO #### [facility] [address] [place] [address] C-REACTIVE PROTEINon 03-01-2 022 C-REACTIVE PROTEIN 5.30 MG/DL High 0-0.3 [facility] Comment on above: Result Comment: This method is intended for the detection and evaluation of infection, tissue injury and inflammatory disease. This method is not intended for cardiovascular risk assessment. * Performed By: #### B MP, CBCD #### [facility] [address] [place] [address] CBC with DIFFERENTIALon 03-0 1-2021 Basophils (Bld) [#/Vol] 0.0 10*3/uL Normal 0.0-0.1 [facility] Comment on above: Performed By: #### L ABASE, CMP, PT, CBCD, APTT #### [facility] [address] [place] [address] #### ALB SO #### [facility] [address] [place] [address] Basophils/100 WBC (Bld) 0.6 % Normal 0.0-1.0 E [facility] Comment on above: Performed By: #### L ABASE, CMP, PT, CBCD, APTT #### [facility] [address] [place] [address] #### ALB SO #### [facility] [address] [place] [address] Eosinophils (Bld) [#/Vol] 0.2 10*3/uL Normal 0.0-0.4 [facility] Comment on above: Performed By: #### L ABASE, CMP, PT, CBCD, APTT #### [facility] [address] [place] [address] #### ALB SO #### [facility] [address] [place] [address] Eosinophils/100 WBC (Bld) 2.3 % Normal 1.0-4.0 [facility] Comment on above: Performed By: #### L ABASE, CMP, PT, CBCD, APTT #### [facility] [address] [place] [address] #### ALB SO #### [facility] [address] [place] [address] Hematocrit (Bld) [Volume fraction] 44.1 % Normal 42.0-52.0 [facility] Comment on above: Performed By: #### L ABASE, CMP, PT, CBCD, APTT #### [facility] [address] [place] [address] #### ALB SO #### [facility] [address] [place] [address] Hemoglobin (Bld) [Mass/Vol] 14.6 g/dL Normal 14.0-18.0 [facility] Comment on above: Performed By: #### L ABASE, CMP, PT, CBCD, APTT #### [facility] [address] [place] [address] #### ALB SO #### [facility] [address] [place] [address] IG # 0.1 10*3/uL Normal 0.0-0.1 [facility] Comment on above: Performed By: #### L ABASE, CMP, PT, CBCD, APTT #### [facility] [address] [place] [address] #### ALB SO #### [facility] [address] [place] [address] IG % 1.6 % High 0.0-1.0 [facility] Comment on above: Performed By: #### L ABASE, CMP, PT, CBCD, APTT #### [facility] [address] [place] [address] #### ALB SO #### [facility] [address] [place] [address] Lymphocytes (Bld) [#/Vol] 1.2 10*3/uL Low 1.3-4.4 [facility] Comment on above: Performed By: #### L ABASE, CMP, PT, CBCD, APTT #### [facility] [address] [place] [address] #### ALB SO #### [facility] [address] [place] [address] Lymphocytes/100 WBC (Bld) 17.0 % Low 27.0-41.0 [facility] Comment on above: Performed By: #### L ABASE, CMP, PT, CBCD, APTT #### [facility] [address] [place] [address] #### ALB SO #### [facility] [address] [place] [address] MCV (RBC) [Entitic vol] 90.9 fL Normal 80.0-94.0 E [facility] Comment on above: Performed By: #### L ABASE, CMP, PT, CBCD, APTT #### [facility] [address] [place] [address] #### ALB SO #### [facility] [address] [place] [address] MEAN CORPUSCULAR HGB 30.1 pg Normal 27.0-31.0 [facility] Comment on above: Performed By: #### L ABASE, CMP, PT, CBCD, APTT #### [facility] [address] [place] [address] #### ALB SO #### [facility] [address] [place] [address] MEAN CORPUSCULAR HGB CONC 33.1 g/dl Normal 33.0-37.0 [facility] Comment on above: Performed By: #### L ABASE, CMP, PT, CBCD, APTT #### [facility] [address] [place] [address] #### ALB SO #### [facility] [address] [place] [address] Monocytes (Bld) [#/Vol] 0.5 10*3/uL Normal 0.1-1.0 [facility] Comment on above: Performed By: #### L ABASE, CMP, PT, CBCD, APTT #### [facility] [address] [place] [address] #### ALB SO #### [facility] [address] [place] [address] Monocytes/100 WBC (Bld) 7.5 % Normal 3.0-9.0 E [facility] Comment on above: Performed By: #### L ABASE, CMP, PT, CBCD, APTT #### [facility] [address] [place] [address] #### ALB SO #### [facility] [address] [place] [address] Neutrophils (Bld) [#/Vol] 4.8 10*3/uL Normal 2.3-7.9 [facility] Comment on above: Performed By: #### L ABASE, CMP, PT, CBCD, APTT #### [facility] [address] [place] [address] #### ALB SO #### [facility] [address] [place] [address] Neutrophils/100 WBC (Bld) 71.0 % Normal 47.0-73.0 [facility] Comment on above: Performed By: #### L ABASE, CMP, PT, CBCD, APTT #### [facility] [address] [place] [address] #### ALB SO #### [facility] [address] [place] [address] NUCLEATED RED BLOOD CELL 0.0 10*3/uL Normal 0.0-0.0 [facility] Comment on above: Performed By: #### L ABASE, CMP, PT, CBCD, APTT #### [facility] [address] [place] [address] #### ALB SO #### [facility] [address] [place] [address] NUCLEATED RED BLOOD CELL 0.0 % Normal 0.0-0.0 [facility] Comment on above: Performed By: #### L ABASE, CMP, PT, CBCD, APTT #### [facility] [address] [place] [address] #### ALB SO #### [facility] [address] [place] [address] PLATELET COUNT AUTOMATED 120 10*3/uL Low 130-400 [facility] Comment on above: Performed By: #### L ABASE, CMP, PT, CBCD, APTT #### [facility] [address] [place] [address] #### ALB SO #### [facility] [address] Platelet mean volume (Bld) [Entitic vol] 8.9 fL Low 9.6-12.3 [facility] Comment on above: Performed By: #### L ABASE, CMP, PT, CBCD, APTT #### [facility] [address] [place] [address] #### ALB SO #### [facility] [address] [place] [address] RBC (Bld) [#/Vol] 4.85 10*6/uL Normal 4.50-5.90 [facility] Comment on above: Performed By: #### L ABASE, CMP, PT, CBCD, APTT #### [facility] [address] [place] [address] #### ALB SO #### [facility] [address] [place] [address] RED CELL DISTRI WIDTH 15.2 % High 0-14.5 [facility] Comment on above: Performed By: #### L ABASE, CMP, PT, CBCD, APTT #### [facility] [address] [place] [address] #### ALB SO #### [facility] [address] [place] [address] WBC (Bld) [#/Vol] 6.8 10*3/uL Normal 4.8-10.8 [facility] Comment on above: Performed By: #### L ABASE, CMP, PT, CBCD, APTT #### [facility] [address] [place] [address] #### ALB SO #### [facility] [address] [place] [address] COMPREHENSIVE METABOLIC PANE Nolan 07-02-2021 ALBUMIN. ND Normal [facility] Comment on above: Result Comment: See send out ALBUMIN from [facility]. Performed By: #### L ABASE, CMP, PT, CBCD, APTT #### [facility] [address] [place] [address] #### ALB SO #### [facility] [address] [place] [address] ALP [Catalytic activity/Vol] 92 U/L Normal 45-117 [facility] Comment on above: Performed By: #### L ABASE, CMP, PT, CBCD, APTT #### [facility] [address] [place] [address] #### ALB SO #### [facility] [address] [place] [address] ALT [Catalytic activity/Vol] 34 U/L Normal 12-78 [facility] Comment on above: Performed By: #### L ABASE, CMP, PT, CBCD, APTT #### [facility] [address] [place] [address] #### ALB SO #### [facility] [address] [place] [address] AST [Catalytic activity/Vol] 21 U/L Normal 3-35 [facility] Comment on above: Performed By: #### L ABASE, CMP, PT, CBCD, APTT #### [facility] [address] [place] [address] #### ALB SO #### [facility] [address] [place] [address] Bilirubin [Mass/Vol] 0.8 mg/dL Normal 0.2-1.0 [facility] Comment on above: Performed By: #### L ABASE, CMP, PT, CBCD, APTT #### [facility] [address] [place] [address] #### ALB SO #### [facility] [address] [place] [address] Calcium [Mass/Vol] 9.0 mg/dL Normal 8.5-10.5 [facility] Comment on above: Performed By: #### L ABASE, CMP, PT, CBCD, APTT #### [facility] [address] [place] [address] #### ALB SO #### [facility] [address] [place] [address] Chloride [Moles/Vol] 103 mmol/L Normal 98-107 [facility] Comment on above: Performed By: #### L ABASE, CMP, PT, CBCD, APTT #### [facility] [address] [place] [address] #### ALB SO #### [facility] [address] [place] [address] CO2 [Moles/Vol] 27 mmol/L Normal 21-32 [facility] Comment on above: Performed By: #### L ABASE, CMP, PT, CBCD, APTT #### [facility] [address] [place] [address] #### ALB SO #### [facility] [address] [place] [address] Creatinine [Mass/Vol] 1.20 mg/dL Normal 0.70-1.30 [facility] Comment on above: Performed By: #### L ABASE, CMP, PT, CBCD, APTT #### [facility] [address] [place] [address] #### ALB SO #### [facility] [address] [place] [address] EST GLOM FILT > 60 Normal [facility] Comment on above: Result Comment: Result [...] L ABASE, CMP, PT, CBCD, APTT #### [facility] [address] [place] [address] #### ALB SO #### [facility] [address] [place] [address] ESTIMATED GLOM FILT RATE 60 mL/min/ Normal [facility] Comment on above: Performed By: #### L ABASE, CMP, PT, CBCD, APTT #### [facility] [address] [place] [address] #### ALB SO #### [facility] [address] [place] [address] Glucose [Mass/Vol] 198 mg/dL High 65-99 [facility] Comment on above: Performed By: #### L ABASE, CMP, PT, CBCD, APTT #### [facility] [address] [place] [address] #### ALB SO #### [facility] [address] [place] [address] Potassium [Moles/Vol] 3.9 mmol/L Normal 3.5-5.1 [facility] Comment on above: Performed By: #### L ABASE, CMP, PT, CBCD, APTT #### [facility] [address] [place] [address] #### ALB SO #### [facility] [address] [place] [address] Protein [Mass/Vol] 7.4 g/dL Normal 6.4-8.2 [facility] Comment on above: Performed By: #### L ABASE, CMP, PT, CBCD, APTT #### [facility] [address] [place] [address] #### ALB SO #### [facility] [address] [place] [address] Sodium [Moles/Vol] 135 mmol/L Low 136-145 [facility] Comment on above: Performed By: #### L ABASE, CMP, PT, CBCD, APTT #### [facility] [address] [place] [address] #### ALB SO #### [facility] [address] [place] [address] Urea nitrogen [Mass/Vol] 14 mg/dL Normal 7-24 [facility] Comment on above: Performed By: #### L ABASE, CMP, PT, CBCD, APTT #### [facility] [address] [place] [address] #### ALB SO #### [facility] [address] [place] [address] ELECTROCARDIOGRAM REPORTon 0 07-02-2021 [employer] Production Report [place], [place] ELECTROCARDIOGRAM REPORT NAME: CHARLI PORRAS UNIT #: [id number] ROOM: [facility] DOCTOR: NEENA KRUSETEGAN BIRTHDATE: [birth year] [facility] Test Date: 2021-07-02 Test Time: 15:36:52 Pat Name: CHARLI PORRAS Department: Room: 425 Gender: M [employer]: : 1950 Requested By: CRISS TORRES Order Number: [id number] Reading MD: Tegan Horton MD Measurements Intervals [place] Rate: 74 P: 43 [place]: 169 QRS: -14 QRSD: 161 T: 98 QT: 463 QTc: 514 Interpretive Statements Sinus rhythm Left bundle branch block Electronically Signed On 07-02-2021 15:54:22 PST by Tegan Horton MD CM:EKGRPT:ELECTROCARD IOGRAM REPORT [id number] CRISS TORRES MD Normal [facility] ESR (Sed Rate)on 07-02-2021 ESR (Bld) [Velocity] 31 mm/h High 0-20 [facility] Comment on above: Performed By: #### B MP, CBCD #### [facility] [address] [place] [address] FOOT RIGHT (MIN 3 V)on 07-02 CRFOOTR Name: CHARLI PORRAS Jagjit Phys: CRISS ESPINO MD : 1950 Age: 71 Sex: M Acct: [id number] Loc: 425 1 Exam Date: 07/02/2021 Status: ADM IN Radiology No: [id number] Unit No: [id number] EXAM# TYPE/EXAM RESULT [id number] EDRAD/FOOT RIGHT (MIN 3 V) SEE REPORT [...] Signed Report (CONTINUED) Name: CHARLI PORRAS Phys: BRIAN TORRES MD,CRISS : 1950 Age: 71 Sex: M Acct: [id number] Loc: 425 1 Exam Date: 07/02/2021 Status: ADM IN Radiology No: [id number] Unit No: [id number] EXAM# TYPE/EXAM RESULT [id number] EDRAD/FOOT RIGHT (MIN 3 V) SEE REPORT Signed by Yahaira Christianson MD REPORT SIGNED IN OTHER VENDOR SYSTEM 07/02/2021 Reported By: YAHAIRA CHRISTIANSON CC: ERICKA CASSIDY Technologist: MURIEL GAUTAM Transcribed Date/Time: 07/02/2021 (123) Medical Reimbursement Specialist: LEEANNE Printed Date/Time: 07/02/2021 (172) PAGE 2 Signed Report Normal [facility] LA>2 RFLX FOLLOW UP AT 2 HRS on 07-02-2021 LA>2 RFLX FOLLOW UP AT 2 HRS 1.8 mmol/L Normal 0.4-2.0 [facility] Comment on above: Performed By: #### C OVID19 [id number] #### [facility] [address] [place] [address] LACTIC ACID BASELINEon 07-02 LACTIC ACID BASELINE 3.1 mmol/L Abnormal 0.4-2.0 [facility] Comment on above: Result Comment: VALUE IS A CRITICAL RESULT VERIFIED BY REPEAT ANALYSIS ON SAME SPECIMEN RESULT CALLED TO: TANISHA ANDERSON READ BACK RESULTS AND DATE OF OF 48 VERIFIED 07/02/21 1554 RENA CAMARILLO Performed By: #### B MP, CBCD #### [facility] [address] [place] [address] NT-proBNPon 07-02-2021 Natriuretic peptide B (Bld) [Mass/Vol] 209.00 pg/mL High 0-125 [facility] Comment on above: Result Comment: Using [...] consideration. . Performed By: #### C OVID19 [id number] #### [facility] [address] [place] [address] PROTHROMBIN TIMEon 2 INTERNATIONAL NORM RATIO 2.6 Normal 2.0-3.5 [facility] Comment on above: Result Comment: INR THERAPEUTIC RANGE: GROUP A 2.0-3.0 INR GROUP B 2.5-3.5 INR GROUP A SUGGESTED INDICATIONS: PROPHYLAXIS AND TREATMENT OF VENOUS THROMBOSIS TREATMENT OF PULMONARY EMBOLISM ATRIAL FIBRILLATION GROUP B SUGGESTED INDICATIONS: MECHANICAL PROSTHETIC VALVES Performed By: #### L ABASE, CMP, PT, CBCD, APTT #### [facility] [address] [place] [address] #### ALB SO #### [facility] [address] [place] [address] PT Coag (PPP) [Time] 24.3 s High 8.9-12.2 [facility] Comment on above: Performed By: #### L ABASE, CMP, PT, CBCD, APTT #### [facility] [address] [place] [address] #### ALB SO #### [facility] [address] [place] [address] TIBIA AND FIBULA RIGHT (2 V) on 07-02-2021 CRTIBFIR Name: CHARLI PORRAS Phys: CRISS ESPINO MD : 1950 Age: 71 Sex: M Acct: [id number] Loc: 425 1 Exam Date: 07/02/2021 Status: ADM IN Radiology No: [id number] Unit No: [id number] EXAM# TYPE/EXAM RESULT [id number] EDRAD/TIBIA AND FIBULA RIGHT (2 SEE REPORT [...] CASSIDY Technologist: MURIEL GAUTAM Transcribed Date/Time: 07/02/2021 (416) Medical Reimbursement Specialist: LEEANNE Printed Date/Time: 07/02/2021 (4727) PAGE 1 Signed Report Normal [facility] VENOUS LOWER EXTREMITY RT on 07-02-2021 USVENLER Name: CHARLI PORRAS Jagjit Phys: CRISS ESPINO MD : 1950 Age: 71 Sex: M Acct: [id number] Loc: H2016 1 Exam Date: 07/02/2021 Status: ADM IN Radiology No: [id number] Unit No: [id number] EXAM# TYPE/EXAM RESULT [id number] US/US VENOUS LOWER EXTREMITY RT SEE REPORT [...] CASSIDY Technologist: ZULEMA WORTHY Transcribed Date/Time: 07/02/2021 (0104) Medical Reimbursement Specialist: LEEANNE Printed Date/Time: 07/02/2021 (9464) PAGE 1 Signed Report Normal [facility] 06-26-2021 BESSEMER Patient name: CHARLI PORRAS MR#: [id number] Date of Service: 06/26/21 Acc#: [id number] : 1950 Age: 71 Sex: M Dictated by: Maryan Tony MD Patient Name : CHARLI PORRAS (71yo, M) ID# [id number] Appt. Date/Time : 06/26/2021 07:45AM : 1950 Service [facility] Provider : MARYAN TONY M.D. Insurance Med Primary: [facility] (MEDICARE REPLACEMENT/ADVANTAGE - HMO) Insurance # : [id number] Policy/Group # : [id number] Med Secondary: [facility] ([place] - [place]MO) Insurance # : [id number] Policy/Group # : [id number] Prescription: [facility] - Member is eligible. details Prescription: [facility] - Member is eligible. details Chief Complaint medication refill refill- tramadol and gabapentin; feet, legs and back pain Patient's Care Team Primary Care Provider: ERICKA CASSIDY MD: [address] [place] [address], , Referring Provider: SARAH FELIPEI: [address] [place] [address], Ph [phone], Other: CHARISSE VALENCIA MD: [address] [place] [address], , ax Patient's Pharmacies [id number] ERX): [id number] , [place] [address], Ph [phone], Vitals BP: 156/79 sitting L arm 06/26/2021 [...] NEEDED FOR LEGSWELLING Date: 06/10/21 filled Source: ursula Name: busPIRone 15 mg [...] MOUTH ONCE DAILY Date: 06/10/21 filled Source: josescripts Name: DULoxetine 60 mg capsule,delayed release TAKE 1 CAPSULE BY MOUTH EVERY DAY Date: 06/05/21 filled Source: surescripts Name: ezetimibe 10 mg tablet TAKE 1 TABLET BY MOUTH EVERY DAY Date: 06/10/21 filled Source: surescripts Name: FLUoxetine 40 mg capsule TAKE 1 CAPSULE BY MOUTH ONCE DAILY *EMERGENCY REILL* Date: 06/10/21 filled Source: surescripts Name: gabapentin 800 mg tablet TAKE 1 TABLET BY MOUTH THREE TIMES DAILY Date: 06/26/21 prescribed Source: Maryan Tony M.D. Name: glipiZIDE 5 mg tablet TAKE TWO (2) TABLETS BY MOUTH TWICE DAILY BEFORE MELS Date: 06/10/21 filled Source: surescripts Name: hydrOXYzine pamoate 50 mg capsule TAKE 1 CAPSULE BY MOUTH FOUR TIMES JILLIAN NEEDED *EMERGENCY REFILL* Date: 06/10/21 filled Source: surescripts Name: Januvia 25 mg tablet TAKE 1 TABLET BY MOUTH EVERY DAY Date: 06/10/21 filled Source: surescripts Name: Jardiance 25 mg tablet TAKE 1 TABLET BY MOUTH EVERY DAY IN THE MORNING Date: 06/10/21 filled Source: josescripts Name: pramipexole 0.125 mg tablet TAKE 1 TABLET BY MOUTH TWICE DAILY Date: 06/10/21 filled Source: surescripts Name: QUEtiapine 200 mg tablet TAKE 1 TABLET BY MOUTH AT BEDTIME Date: 06/18/21 filled Source: josescripts Name: QUEtiapine 50 mg tablet TAKE 1 TABLET BY MOUTH EVERY MORNING Date: 06/23/21 filled Source: surescripts Name: risperiDONE 1 mg tablet TAKE 1 TABLET BY MOUTH EVERY EVENING Date: 03/04/21 filled Source: martharipts Name: rivastigmine 13.3 mg/24 hour transdermal patch [...] TO SKIN ON (more content not included)... [facility] 05-22-2021 BESSEMER Patient name: CHARLI PORRAS MR#: [id number] Date of Service: 05/22/21 Acc#: [id number] : 1950 Age: 71 Sex: M Dictated by: Maryan Tony MD Patient Name : CHARLI PORRAS (71yo, M) ID# [id number] Appt. Date/Time : 05/22/2021 01:15PM : 1950 Service Dept. : [facility]PAIN MANAGEMENT Provider : MARYAN TONY M.D. Insurance Med Primary: [facility] (MEDICARE REPLACEMENT/ADVANTAGE - HMO) Insurance # : [id number] Policy/Group # : [id number] Med Secondary: [facility] ([place] REPLAC[place] - HMO) Insurance # : [id number] Policy/Group # : [id number] Prescription: [facility] - Member is eligible. details Prescription: [facility] - Member is eligible. details Chief Complaint *pain management refills; c/o pain shoulders, back legs - present states these last two weks pt has been in excruciating pain Patient's Care Team Primary Care Provider: ERICKA CASSIDY MD: [address] [place] [address], , Referring Provider: SARAH FELIPEI: [address] [place] [address], Ph [phone], Other: CHARISSE VALENCIA MD: [address] [place] [address], , ax Patient's Pharmacies [email or web address] [id number] (ERX): [address] [address], Ph [phone], Vitals 05/22/2021 01:14 pm BP: Ht: 5 ft 10 in (177.8 cm) Pain Scale: 6 Allergies Allergies not reviewed (last reviewed 03/20/2021) NKDA Medications Reviewed Medications Name: allopurinoL 100 mg tablet TAKE 1 TABLET BY MOUTH EVERY DAY Date: 05/10/21 filled Source: martharimartha Name: atorvastatin 10 mg tablet TAKE 1 TABLET BY MOUTH EVERY DAY Date: 05/10/21 filled Source: josescripts Name: bumetanide 1 mg tablet TAKE 1 TABLET BY MOUTH EVERY DAY NEEDED FOR LEGSWELLING Date: 05/10/21 filled Source: surescripts Name: Centrum Silver Men [...] MOUTH EVERY DAY Date: 05/10/21 filled Source: josescripts Name: gabapentin 800 mg tablet TAKE 1 TABLET BY MOUTH THREE TIMES A DAY Date: 05/22/21 prescribed Source: Maryan Tony M.D. Name: glipiZIDE 5 mg tablet TAKE TWO (2) TABLETS BY MOUTH TWICE DAILY BEFORE MELS Date: 05/10/21 filled Source: martharipts Name: Januvia 25 mg tablet TAKE 1 TABLET BY MOUTH EVERY DAY Date: 05/10/21 filled Source: josescripts Name: Jardiance 25 mg [...] EVERY 14 DAYS. Date: 05/18/21 filled Source: surescripts Name: rivastigmine 9.5 mg/24 hour transdermal patch apply 1 (ONE) patch topicaly once daily do not apply to same area more than once every 14 days Date: 05/15/21 filled Source: surescripts Name: SEROqueL 200 mg tablet Take 1 tablet(s) every day by oral route at bedtim. Date: 05/22/21 entered Source: Anastasia Singletary Name: Slow-Mag 71.5 mg tablet,delayed release Take 2 tablet(s) twice a day by oal route for 30 days. Date: 03/19/20 filled Source: surejorgeripts Name: traMADoL 50 mg tablet TAKE 1 TABLET BY MOUTH FOUR TIMES DAILY NEEDED FR PAIN Date: 05/22/21 prescribed Source: Maryan Tony M.D. Name: Viibryd 20 mg tablet Take 1 tablet(s) every day by oral route. Date: 05/22/21 entered Source: Anastasia Singletary Name: warfarin 5 mg tablet TAKE 1 TABLET BY MOUTH EVERY DAY Date: 05/10/21 filled Source: surescripts Name: Zanaflex 4 mg tablet TAKE ONE TABLET AT NIGHT NEEDED FOR PAIN/SPASM Date: 05/22/21 prescribed Source: Maryan Tony M.D. 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 [facility] 03-20-2021 BESSEMER Patient name: CHARLI PORRAS MR#: [id number] Date of Service: 03/20/21 Acc#: [id number] : 1950 Age: 70 Sex: M Dictated by: Maryan Tony MD Patient Name : CHARLI PORRAS (70yo, M) ID# [id number] Appt. Date/Time : 03/20/2021 01:15PM : 1950 Service Dept. : [facility]IN MANAGEMENT Provider : MARYAN TONY M.D. Insurance Med Primary: [facility] (MEDICARE REPLACEMENT/ADVANTAGE - HMO) Insurance # : [id number] Policy/Group # : [id number] Med Secondary: [facility] - [place]) Insurance # : [id number] Policy/Group # : [id number] Prescription: [facility] - Member is eligible. details Prescription: [facility] - Member is eligible. details Chief Complaint *pain management REFILL Patient's Care Team Primary Care Provider: ERICKA CASSIDY MD: [address] [place] [address], , Referring Provider: SARAH FELIPEI: [address] [place] [address], Ph [phone], Other: CHARISSE VALENCIA MD: [address] [place] [address], , ax Patient's Pharmacies [email or web address] [id number] (ERX): [address] [address], Ph [phone], Vitals BP: 160/79 03/20/2021 01:25 pm Ht: [...] MOUTH EVERY DAY Date: 03/13/21 filled Source: shamekapts Name: bumetanide 1 mg tablet TAKE 1 TABLET BY MOUTH EVERY DAY NEEDED FOR LEGSWELLING Date: 03/08/21 filled Source: martharimartha Name: busPIRone 15 mg [...] AREA(S) Date: 11/13/20 filled Source: ursula Name: doxazosin 2 mg tablet TAKE 1 TABLET BY MOUTH ONCE DAILY Date: 03/18/21 filled Source: martharipts Name: DULoxetine 60 mg capsule,delayed release TAKE ONE (1) CAPSULE BY MOUTH Date: 03/13/21 filled Source: shamekapts Name: ezetimibe 10 mg tablet TAKE 1 TABLET BY MOUTH EVERY DAY Date: 03/13/21 filled Source: martharipts Name: gabapentin 800 mg tablet TAKE 1 TABLET BY MOUTH TWICE DAILY Date: 01/23/21 filled Source: ursula Name: glipiZIDE 5 mg tablet TAKE TWO [...] FOR 14 DAYS Date: 02/12/21 filled Source: ursula Name: pioglitazone 15 mg tablet TAKE 1 [...] MOUTH EVERY DAY Date: 03/13/21 filled Source: joseneeta Vaccines Reviewed Vaccines 2020 covid vaccine Problems [...] - Cer (more content not included)... Normal [facility] .Auto Diffon 07-16-2020 Ammonia (P) [Mass/Vol] 0.60 10 3/mcL Normal 0.09-1.40 [facility] ([place]) Comment on above: Performed By: #### C BC, ADIFF, ANEU, BMP, GFR, TROPHS #### [address] [address] Basophils (Bld) [#/Vol] 0.10 10 3/mcL Normal 0.00-0.27 [facility] ([place]) Comment on above: Performed By: #### C BC, ADIFF, ANEU, BMP, GFR, TROPHS #### [address] [address] Basophils/100 WBC (Bld) 1.0 % Normal 0.0-2.5 [facility] ([place]) Comment on above: Performed By: #### C BC, ADIFF, ANEU, BMP, GFR, TROPHS #### [address] [address] Eosinophils (Bld) [#/Vol] 0.20 10 3/mcL Normal 0.00-0.65 [facility] ([place]) Comment on above: Performed By: #### C BC, ADIFF, ANEU, BMP, GFR, TROPHS #### [address] [address] Eosinophils/100 WBC (Bld) 2.5 % Normal 0.0-6.0 [facility] ([place]) Comment on above: Performed By: #### C BC, ADIFF, ANEU, BMP, GFR, TROPHS #### [address] [address] Lymphocytes (Bld) [#/Vol] 1.60 10 3/mcL Normal 0.90-4.32 [facility] ([place]) Comment on above: Performed By: #### C BC, ADIFF, ANEU, BMP, GFR, TROPHS #### [address] [address] Lymphocytes/100 WBC (Bld) 21.0 % Normal 20.0-40.0 [facility] ([place]) Comment on above: Performed By: #### C BC, ADIFF, ANEU, BMP, GFR, TROPHS #### [address] [address] Monocytes/100 WBC (Bld) 7.6 % Normal 2.0-13.0 [facility] ([place]) Comment on above: Performed By: #### C BC, ADIFF, ANEU, BMP, GFR, TROPHS #### [address] [address] Neutrophils/100 WBC (Bld) 67.9 % Normal 50.0-75.0 [facility] ([place]) Comment on above: Performed By: #### C BC, ADIFF, ANEU, BMP, GFR, TROPHS #### [address] [address] .GFRon 03-15-2021 GFR >60 Normal [facility] ([place]) Comment on above: Result Comment: GFR Population [...] BC, ADIFF, ANEU, BMP, GFR, TROPHS #### [address] [address] GFR Non- 57 ml/min/1.73sqm Normal [facility] ([place]) Comment on above: Result Comment: GFR Population [...] BC, ADIFF, ANEU, BMP, GFR, TROPHS #### [address] [address] .NEUABSon 07-16-2020 Neutrophils (Bld) [#/Vol] 5.20 10 3/mcL Normal 2.25-8.10 [facility] ([place]) Comment on above: Performed By: #### C BC, ADIFF, ANEU, BMP, GFR, TROPHS #### [address] [address] BMPon 07-16-2020 Calcium [Mass/Vol] 9.0 mg/dL Normal 8.4-10.1 [facility] ([place]) Comment on above: Result Comment: No te - New Reference Range in effect 19 Performed By: #### C BC, ADIFF, ANEU, BMP, GFR, TROPHS #### [address] [address] Chloride [Moles/Vol] 101 mmol/L Normal 98-110 [facility] ([place]) Comment on above: Performed By: #### C BC, ADIFF, ANEU, BMP, GFR, TROPHS #### [address] [address] CO2 [Moles/Vol] 24 mmol/L Normal 22-32 [facility] ([place] Comment on above: Performed By: #### C BC, ADIFF, ANEU, BMP, GFR, TROPHS #### [address] [address] Creatinine [Mass/Vol] 1.24 mg/dL Normal 0.60-1.40 [facility] ([place]) Comment on above: Performed By: #### C BC, ADIFF, ANEU, BMP, GFR, TROPHS #### [address] [address] Electrolyte Balance 9.0 mEq/L Normal 4.0-15.0 [facility] ([place]) Comment on above: Performed By: #### C BC, ADIFF, ANEU, BMP, GFR, TROPHS #### [address] [address] Glucose [Mass/Vol] 253 mg/dL High 82-115 [facility] ([place]) Comment on above: Performed By: #### C BC, ADIFF, ANEU, BMP, GFR, TROPHS #### [address] [address] Potassium [Moles/Vol] 4.1 mmol/L Normal 3.5-5.0 [facility] ([place]) Comment on above: Performed By: #### C BC, ADIFF, ANEU, BMP, GFR, TROPHS #### [address] [address] Sodium [Moles/Vol] 134 mmol/L Low 136-145 [facility] ([place] Comment on above: Performed By: #### C BC, ADIFF, ANEU, BMP, GFR, TROPHS #### [place] [address] Urea nitrogen [Mass/Vol] 26.0 mg/dL High 8.0-22.0 [facility] ([place] Comment on above: Performed By: #### C BC, ADIFF, ANEU, BMP, GFR, TROPHS #### [place] [address] Urea nitrogen/Creatinine [Mass ratio] 21.0 ratio Normal 10.0-22.0 [facility] ([place] Comment on above: Performed By: #### C BC, ADIFF, ANEU, BMP, GFR, TROPHS #### [address] [address] CBCon 07-16-2020 Erythrocyte distribution width (RBC) [Ratio] 14.7 % Normal 11.5-15.5 [facility] ([place] Comment on above: Performed By: #### C BC, ADIFF, ANEU, BMP, GFR, TROPHS #### [place] [address] Hematocrit (Bld) [Volume fraction] 44.5 % Normal 40.0-52.0 [facility] ([place] Comment on above: Performed By: #### C BC, ADIFF, ANEU, BMP, GFR, TROPHS #### [place] [address] Hemoglobin (Bld) [Mass/Vol] 15.2 G/dL Normal 13.0-17.5 [facility] ([place] Comment on above: Performed By: #### C BC, ADIFF, ANEU, BMP, GFR, TROPHS #### [place] [address] MCH (RBC) [Entitic mass] 30.4 pg Normal 27.0-33.0 [facility] ([place] Comment on above: Performed By: #### C BC, ADIFF, ANEU, BMP, GFR, TROPHS #### [address] [address] MCHC (RBC) [Mass/Vol] 34.1 G/dL Normal 32.0-36.0 [facility] ([place]) Comment on above: Performed By: #### C BC, ADIFF, ANEU, BMP, GFR, TROPHS #### [place] [address] MCV (RBC) [Entitic vol] 89.3 fL Normal 81.0-100.0 [facility] ([place]) Comment on above: Performed By: #### C BC, ADIFF, ANEU, BMP, GFR, TROPHS #### [place] [address] Platelet mean volume (Bld) [Entitic vol] 7.6 fL Normal 6.4-10.5 [facility] ([place] Comment on above: Performed By: #### C BC, ADIFF, ANEU, BMP, GFR, TROPHS #### [address] [address] Platelets (Bld) [#/Vol] 132 10 3/mcL Low 150-450 [facility] ([place] Comment on above: Performed By: #### C BC, ADIFF, ANEU, BMP, GFR, TROPHS #### [place] [address] RBC (Bld) [#/Vol] 4.99 10 6/mcL Normal 4.50-6.00 [facility] ([place] Comment on above: Performed By: #### C BC, ADIFF, ANEU, BMP, GFR, TROPHS #### [address] [address] WBC (Bld) [#/Vol] 7.70 10 3/mcL Normal 4.50-10.80 [facility] ([place] Comment on above: Performed By: #### C BC, ADIFF, ANEU, BMP, GFR, TROPHS #### [address] [address] [address] HEAD OR BRAIN W/O CONTRAS Ton [...] Date: 07/16/2020 9:32:33 PM Ordering Provider:Gayla Greenberg [facility] ([place]) PROon 07-16-2020 INR Coag (PPP) [Relative time] 1.6 {INR} Normal [facility] ([place] Comment on above: Result Comment: The [place] [employer] (CHEST, 1991, 102:312S-25S) recommended therapeutic range for oral anticoagulant therapy is: LOW RISK: Prophylaxis of venous thrombosis INR: 2.0-3.0 Treatment of pulmonary embolism 2.0-3.0 Prevention of systemic embolism 2.0-3.0 HIGH RISK: Mechanical prosthetic valves 2.5-3.5 Performed By: #### P RO #### [facility] [address] [place] [address] PT Coag (PPP) [Time] 19.0 s High 9.0-14.8 [facility] ([place]) Comment on above: Result Comment: Effe ctive 11/16/07, Protime results may be affected by some antibiotics (i.e. Ciprofloxacin, Azithromycin, Bactrim) which may potentiate the action of oral anticoagulants, with further increases in Protime/INR. Performed By: #### P RO #### [place] [address] TROPHSon 07-16-2020 Troponin I High Sensitivity 7.91 ng/L Normal 0.00-54.00 [facility] ([place]) Comment on above: Performed By: #### C BC, ADIFF, ANEU, BMP, GFR, TROPHS #### [place] [address] UAon 07-16-2020 Color (U) Yellow Normal [facility] ([place]) Comment on above: Performed By: #### U A #### [place] [address] Glucose (U) [Mass/Vol] mg/dL Abnormal Negative [facility] ([place]) Comment on above: Performed By: #### U A #### [place] [address] Ketones Ql (U) Negative Normal Neg-Trace [facility] ([place]) Comment on above: Performed By: #### U A #### [place] [address] UA Appear Clear Normal [facility] ([place] Comment on above: Performed By: #### U A #### [place] [address] UA Blood Negative Normal Neg-Trace [facility] ([place] Comment on above: Performed By: #### U A #### [place] [address] UA Leuk Est Negative Normal Negative [facility] ([place] Comment on above: Performed By: #### U A #### [place] [address] UA Nitrite Negative Normal Negative [facility] ([place]) Comment on above: Performed By: #### U A #### [place] [address] UA pH 5.5 Normal 5.0 - 8.0 [facility] ([place] Comment on above: Performed By: #### U A #### [address] [address] UA Protein Negative Normal Negative [facility] ([place] Comment on above: Performed By: #### U A #### [address] [address] UA Spec Grav 1.010 Abnormal [facility] ([place] Comment on above: Performed By: #### U A #### [place] [address] UA Specimen Type Clean Catch Normal [facility] ([place] Comment on above: Performed By: #### U A #### [place] [address] UA Urobilinogen 1.0 E.U./dL Normal [facility] ([place] Comment on above: Performed By: #### U A #### [place] [address] Urobilinogen Qn (U) Negative Normal Neg-Trace [facility] ([place]) Comment on above: Performed By: #### U A #### [place] [address] XR CHEST 1 VIEWon 07-16-2020 XR CHEST [...] Date: 07/16/2020 8:13:33 PM Ordering Provider:Gayla Carlisle [facility] ([place]) CR Knee 1 or 2 Views Lefton 10-07-2018 CR Knee 1 or 2 Views Left Patient Name: CHARLI [facility] Diagnostic Radiology Exam Date/Time 10/07/2018 10:08:00 EDT Exam CR Knee 1 or 2 Views Left Ordering Physician FERNY GARCIA NICHOLAS A Accession Number [id number] CPT4 Codes 12273 () Reason For Exam PAIN Report BILATERAL KNEES LEFT KNEE SERIES CLINICAL INDICATION: Left knee arthroplasty follow-up, pain A standing AP view of the bilateral knees was performed. [place] and lateral plain film views of the [...] Transcribed Date and Time: 10/07/2018 4:28 Normal [facility] CR Knee Standing Bilateralon 10-07-2018 CR Knee Standing Bilateral Patient Name: CHARLI P[facility]RAS Diagnostic Radiology Exam Date/Time 10/07/2018 10:08:00 EDT Exam CR Knee Standing AP Bilateral Ordering Physician FERNY GARCIA NICHOLAS A Accession Number [id number] CPT4 Codes 34478 () Reason For Exam PAIN Report BILATERAL KNEES LEFT KNEE SERIES CLINICAL INDICATION: Left knee arthroplasty follow-up, pain A standing AP view of the bilateral knees was performed. [place] and lateral plain film views of the [...] Transcribed Date and Time: 10/07/2018 4:28 Normal [facility] CR Knee 1 or 2 Views Lefton 09-02-2018 CR Knee 1 or 2 Views Left Patient Name: CHARLI PORRAS Diagnostic Radiology Exam Date/Time 09/02/2018 09:44:56 EDT Exam CR Knee 1 or 2 Views Left Ordering Physician MD LESLIE, SOHAN MEDINA Accession Number [id number] CPT4 Codes 16268 () Reason For Exam pain Report CLINICAL [...] Transcribed Date and Time: 09/02/2018 1:22 Normal [facility] CR Knee Standing Bilateralon 09-02-2018 CR Knee Standing Bilateral Patient Name: CHARLI PORRAS Diagnostic Radiology Exam Date/Time 09/02/2018 09:44:56 EDT Exam CR Knee Standing AP Bilateral Ordering Physician MD LESLIE, SOHAN MEDINA Accession Number [id number] CPT4 Codes 58605 () Reason For Exam pain Report CLINICAL [...] knee arthroplasty revision. Report Dictated on Workstation: [employer] Final Dictating Physician: MD ALFREDO JEFFREY Signed Date and Time: 09/02/2018 1:21 pm Signed by: MD ALFREDO JEFFREY Transcribed Date and Time: 09/02/2018 1:22 Normal [facility] CULTURE ANAEROBEon 9 CULTURE ANAEROBE CULTURE ANAEROBE --> Status: F No growth of anaerobes at 5 days. Normal [facility] Comment on above: Performed By: #### T SGL #### [facility] [address] [place] [address] Order Comment: Speci men collected in O.R. CULTURE ANAEROBE CULTURE ANAEROBE --> Status: F No growth of anaerobes at 5 days. Normal [facility] Comment on above: Performed By: #### T SGL #### [facility] [address] [place] [address] Basic Metabolic Panelon 08-02 Calcium [Mass/Vol] 8.8 mg/dL Normal 8.4-10.4 [facility] Comment on above: Performed By: #### H SULMA BMP3 ####[facility] [place] [address] Glucose [Mass/Vol] 211 mg/dL High 70-100 [facility] Comment on above: Performed By: #### H SULMA BMP3 ####[facility] [facility] [place] [address] Urea nitrogen [Mass/Vol] 32 mg/dL High 7-20 [facility] Comment on above: Performed By: #### H SULMA, BMP3 ####[employer] [address] [place] [address] Anion gap [Moles/Vol] 5 Normal [facility] Comment on above: Performed By: #### H SULMA, BMP3 ####[employer] [address] [place] [address] CO2 [Moles/Vol] 33 mmol/L High 22-30 [facility] Comment on above: Performed By: #### H SULMA BMP3 ####[facility] [employer] [address] [place] [address] Creatinine [Mass/Vol] 1.40 mg/dL High 0.52-1.25 [facility] Comment on above: Performed By: #### H SULMA, BMP3 ####[employer] [address] [place] [address] GFR/1.73 sq M predicted among blacks MDRD (S/P/Bld) [Vol rate/Area] mL/min/{1.73_m2} Normal >60 [facility] Comment on above: Performed By: #### H SULMA BMP3 ####[employer] [address] [place] [address] GFR/1.73 sq M predicted among non-blacks MDRD (S/P/Bld) [Vol rate/Area] 50.2 mL/min/{1.73_m2} Normal >60 [facility] Comment on above: Result Comment: Sour ce- MDRD equation with creatinine calibration to IDMS(NKDEP) eGFR not recommended for drug dose adjustment Performed By: #### H SULMA, BMP3 ####[employer] [address] [place] [address] Potassium [Moles/Vol] 3.9 mmol/L Normal 3.5-5.1 [facility] Comment on above: Performed By: #### H SULMA, BMP3 ####[employer] [address] [place] [address] Chloride [Moles/Vol] 96 mmol/L Low 98-107 [facility] Comment on above: Performed By: #### H SULMA BMP3 ####[place] [address] [place] [address] Sodium [Moles/Vol] 134 mmol/L Low 135-145 [facility] Comment on above: Performed By: #### H SULMA BMP3 ####[place] [address] [place] [address] Glucose,Bedsideon 08-19-2018 Glucose [Mass/Vol] 331 mg/dL High 70-100 [facility] Comment on above: Result Comment: Test performed by glucose meter. Results may be 10%-15% lower than serum/plasma values. (CLIA ID [id number]) Performed By: #### B GLU ####[place] [address] [place] [address] Glucose [Mass/Vol] 255 mg/dL High 70-100 [facility] Comment on above: Result Comment: Test performed by glucose meter. Results may be 10%-15% lower than serum/plasma values. (CLIA ID [id number]) Performed By: #### B GLU ####[place] [address] [place] [address] Hemogramon 08-19-2018 Erythrocyte distribution width (RBC) [Ratio] 14.5 % Normal 11.5-14.5 [facility] Comment on above: Performed By: #### H SULMA BMP3 ####[place] [address] [place] [address] Hematocrit (Bld) [Volume fraction] 32.2 % Low 40.0-52.0 [facility] Comment on above: Performed By: #### H SULMA BMP3 ####[place] [address] [place] [address] Hemoglobin (Bld) [Mass/Vol] 11.1 g/dL Low 13.0-18.0 [facility] Comment on above: Performed By: #### H SULMA BMP3 ####[place] [address] [place] [address] MCH (RBC) [Entitic mass] 30.7 pg Normal 26.0-34.0 [facility] Comment on above: Performed By: #### H EMOG, BMP3 ####[facility] [employer] [address] [place] [address] MCHC (RBC) [Mass/Vol] 34.5 % Normal 32.0-36.0 [facility] Comment on above: Performed By: #### H EMOG, BMP3 ####[facility] [address] [place] [address] MCV (RBC) [Entitic vol] 89.0 fL Normal 80.0-98.0 [facility] Comment on above: Performed By: #### H EMOG, BMP3 ####[facility] [employer] [address] [place] [address] Platelet mean volume (Bld) [Entitic vol] 7.1 fL Low 7.4-10.4 [facility] Comment on above: Performed By: #### H EMOG, BMP3 ####[facility] [place] [address] Platelets (Bld) [#/Vol] 130 10*3/uL Low 140-440 [facility] Comment on above: Performed By: #### H EMOG, BMP3 ####[facility] [employer] [address] [place] [address] RBC (Bld) [#/Vol] 3.62 10*6/uL Low 4.40-5.90 [facility] Comment on above: Performed By: #### H EMOG, BMP3 ####[facility] [address] [place] [address] WBC (Bld) [#/Vol] 6.6 10*3/uL Normal 3.6-10.7 [facility] Comment on above: Performed By: #### H EMOG, BMP3 ####[facility] [employer] [address] [place] [address] Basic Metabolic Panelon 08-02 Calcium [Mass/Vol] 8.8 mg/dL Normal 8.4-10.4 [facility] Comment on above: Performed By: #### T SGL #### [facility] [address] [place] [address] Glucose [Mass/Vol] 229 mg/dL High 70-100 [facility] Comment on above: Performed By: #### T SGL #### [facility] [address] [place] [address] Anion gap [Moles/Vol] 6 Normal [facility] Comment on above: Performed By: #### T SGL #### [facility] [address] [place] [address] CO2 [Moles/Vol] 32 mmol/L High 22-[address] [facility] Comment on above: Performed By: #### T SGL #### [facility] [address] [place] [address] Creatinine [Mass/Vol] 1.48 mg/dL High 0.52-1.25 [facility] Comment on above: Performed By: #### T SGL #### [facility] [address] [place] [address] GFR/1.73 sq M predicted among blacks MDRD (S/P/Bld) [Vol rate/Area] 57.1 mL/min/{1.73_m2} Normal >60 [facility] Comment on above: Performed By: #### T SGL #### [place] [address] [place] [address] GFR/1.73 sq M predicted among non-blacks MDRD (S/P/Bld) [Vol rate/Area] 47.1 mL/min/{1.73_m2} Normal >60 [facility] Comment on above: Result Comment: Sour ce- MDRD equation with creatinine calibration to IDMS(NKDEP) eGFR not recommended for drug dose adjustment Performed By: #### T SGL #### [facility] [address] [place] [address] Urea nitrogen [Mass/Vol] 39 mg/dL High 7-20 [facility] Comment on above: Performed By: #### T SGL #### [facility] [address] [place] [address] Chloride [Moles/Vol] 99 mmol/L Normal 98-107 [facility] Comment on above: Performed By: #### T SGL #### [facility] [address] [place] [address] Potassium [Moles/Vol] 4.1 mmol/L Normal 3.5-5.1 [facility] Comment on above: Performed By: #### T SGL #### [facility] [address] [place] [address] Sodium [Moles/Vol] 136 mmol/L Normal 135-145 [facility] Comment on above: Performed By: #### T SGL #### [facility] [address] [place] [address] Glucose,Bedsideon 08-18-2018 Glucose [Mass/Vol] 214 mg/dL High 70-100 [facility] Comment on above: Result Comment: Test performed by glucose meter. Results may be 10%-15% lower than serum/plasma values. (CLIA ID [id number]) Performed By: #### B GLU ####[facility] [place] [address] Glucose [Mass/Vol] 286 mg/dL High 70-100 [facility] Comment on above: Result Comment: Test performed by glucose meter. Results may be 10%-15% lower than serum/plasma values. (CLIA ID [id number]) Performed By: #### B GLU ####[facility] [place] [address] Glucose [Mass/Vol] 285 mg/dL High 70-100 [facility] Comment on above: Result Comment: Test performed by glucose meter. Results may be 10%-15% lower than serum/plasma values. (CLIA ID [id number]) Performed By: #### B GLU ####[facility] [place] [address] Glucose [Mass/Vol] 251 mg/dL High 70-100 [facility] Comment on above: Result Comment: Test performed by glucose meter. Results may be 10%-15% lower than serum/plasma values. (CLIA ID [id number]) Performed By: #### T SGL #### [facility] [address] [place] [address] Hemogramon 08-18-2018 Erythrocyte distribution width (RBC) [Ratio] 14.6 % High 11.5-14.5 [facility] Comment on above: Performed By: #### T SGL #### [facility] [address] [place] [address] Hematocrit (Bld) [Volume fraction] 33.6 % Low 40.0-52.0 [facility] Comment on above: Performed By: #### T SGL #### [facility] [address] [place] [address] Hemoglobin (Bld) [Mass/Vol] 11.4 g/dL Low 13.0-18.0 [facility] Comment on above: Performed By: #### T SGL #### [facility] [address] [place] [address] MCH (RBC) [Entitic mass] 30.6 pg Normal 26.0-34.0 [facility] Comment on above: Performed By: #### T SGL #### [facility] [address] [place] [address] MCHC (RBC) [Mass/Vol] 34.0 % Normal 32.0-36.0 [facility] Comment on above: Performed By: #### T SGL #### [facility] [address] [place] [address] MCV (RBC) [Entitic vol] 90.0 fL Normal 80.0-98.0 [facility] Comment on above: Performed By: #### T SGL #### [facility] [address] [place] [address] Platelet mean volume (Bld) [Entitic vol] 7.5 fL Normal 7.4-10.4 [facility] Comment on above: Performed By: #### T SGL #### [facility] [address] [place] [address] Platelets (Bld) [#/Vol] 129 10*3/uL Low 140-440 [facility] Comment on above: Performed By: #### T SGL #### [facility] [address] [place] [address] RBC (Bld) [#/Vol] 3.73 10*6/uL Low 4.40-5.90 [facility] Comment on above: Performed By: #### T SGL #### [place] [address] [place] [address] WBC (Bld) [#/Vol] 8.4 10*3/uL Normal 3.6-10.7 [facility] Comment on above: Performed By: #### T SGL #### [facility] [address] [place] [address] Basic Metabolic Panelon 08-02 Anion gap [Moles/Vol] 7 Normal [facility] Comment on above: Performed By: #### P T #### [facility] [address] [place] [address] Calcium [Mass/Vol] 9.0 mg/dL Normal 8.4-10.4 [facility] Comment on above: Performed By: #### P T #### [facility] [address] [place] [address] CO2 [Moles/Vol] 26 mmol/L Normal 22-[address] [facility] Comment on above: Performed By: #### P T #### [facility] [address] [place] [address] Creatinine [Mass/Vol] 1.64 mg/dL High 0.52-1.25 [facility] Comment on above: Performed By: #### P T #### [facility] [address] [place] [address] GFR/1.73 sq M predicted among blacks MDRD (S/P/Bld) [Vol rate/Area] 50.7 mL/min/{1.73_m2} Normal >60 [facility] Comment on above: Performed By: #### P T #### [facility] [address] [place] [address] GFR/1.73 sq M predicted among non-blacks MDRD (S/P/Bld) [Vol rate/Area] 41.8 mL/min/{1.73_m2} Normal >60 [facility] Comment on above: Result Comment: Sour ce- MDRD equation with creatinine calibration to IDMS(NKDEP) eGFR not recommended for drug dose adjustment Performed By: #### P T #### [facility] [address] [place] [address] Glucose [Mass/Vol] 329 mg/dL High 70-100 [facility] Comment on above: Performed By: #### P T #### [facility] [address] [place] [address] Urea nitrogen [Mass/Vol] 32 mg/dL High 7-20 [facility] Comment on above: Performed By: #### P T #### [facility] [address] [place] [address] Chloride [Moles/Vol] 99 mmol/L Normal 98-107 [facility] Comment on above: Performed By: #### P T #### [facility] [address] [place] [address] Potassium [Moles/Vol] 5.2 mmol/L High 3.5-5.1 [facility] Comment on above: Performed By: #### P T #### [facility] [address] [place] [address] Sodium [Moles/Vol] 133 mmol/L Low 135-145 [facility] Comment on above: Performed By: #### P T #### [facility] [address] [place] [address] CULTURE AND STAIN - FLUIDon 08-17-2018 CULTURE AND STAIN - FLUID CULTURE & STAIN - FLUID --> Status: F No growth at 5 days. STAIN GRAM --> Status: F Few polymorphonuclear cells/lpf. No organisms seen. No organisms seen. Normal [facility] Comment on above: Performed By: #### T SGL #### [facility] [address] [place] [address] CULTURE AND STAIN - TISSUEon 08-17-2018 CULTURE AND STAIN - TISSUE CULTURE & STAIN - TISSUE --> Status: F No growth at 3 days. STAIN GRAM --> Status: F Rare polymorphonuclear cells/lpf. No organisms seen. No organisms seen. Normal [facility] Comment on above: Order Comment: Speci men collected in O.R. Performed By: #### T SGL #### [facility] [address] [place] [address] CULTURE AND STAIN - TISSUE CULTURE & STAIN - TISSUE --> Status: F No growth at 3 days. STAIN GRAM --> Status: F Rare polymorphonuclear cells/lpf. No organisms seen. No organisms seen. Normal [facility] Comment on above: Performed By: #### P T #### [facility] [address] [place] [address] Glucose,Bedsideon 08-17-2018 Glucose [Mass/Vol] 258 mg/dL High 70-100 [facility] Comment on above: Result Comment: Test performed by glucose meter. Results may be 10%-15% lower than serum/plasma values. (CLIA ID [id number]) Performed By: #### T SGL #### [facility] [address] [place] [address] Glucose [Mass/Vol] 257 mg/dL High 70-100 [facility] Comment on above: Result Comment: Test performed by glucose meter. Results may be 10%-15% lower than serum/plasma values. (CLIA ID [id number]) Performed By: #### T SGL #### [facility] [address] [place] [address] Glucose [Mass/Vol] 324 mg/dL High 70-100 [facility] Comment on above: Result Comment: Test performed by glucose meter. Results may be 10%-15% lower than serum/plasma values. (CLIA ID [id number]) Performed By: #### P T #### [facility] [address] [place] [address] Glucose [Mass/Vol] 319 mg/dL High 70-100 [facility] Comment on above: Result Comment: Test performed by glucose meter. Results may be 10%-15% lower than serum/plasma values. (CLIA ID [id number]) Performed By: #### P T #### [facility] [address] [place] [address] Hemoglobin A1Con 08-17-2018 HbA1c (Bld) [Mass fraction] 177 mg/dL Normal [facility] Comment on above: Performed By: #### P T #### [facility] [address] [place] [address] HbA1c (Bld) [Mass fraction] 7.8 % High 4.0-5.7 [facility] Comment on above: Result Comment: --Hg bA1C levels may not be accurate in patients who have renal disease, received recent blood transfusions, are anemic, or who have dyshemoglobinemia. Performed By: #### P T #### [facility] [address] [place] [address] Hemoglobin AND Hematocriton 08-17-2018 Hematocrit (Bld) [Volume fraction] 35.9 % Low 40.0-52.0 [facility] Comment on above: Performed By: #### P T #### [facility] [address] [place] [address] Hemoglobin (Bld) [Mass/Vol] 12.2 g/dL Low 13.0-18.0 [facility] Comment on above: Performed By: #### P T #### [facility] [address] [place] [address] Prothrombin Timeon 9 INR Coag (PPP) [Relative time] 1.1 Normal 0.9-1.1 [facility] Comment on above: Result Comment: Campos mmended [...] Infarction Performed By: #### P T #### [facility] [address] [place] [address] PT Coag (PPP) [Time] 11.2 s Normal 9.0-12.0 [facility] Comment on above: Result Comment: . Performed By: #### P T #### [facility] [address] [place] [address] CR Femur 2+ Views Lefton CR Femur 2+ Views Left Patient Name: CHARLI PORRAS Diagnostic Radiology Exam Date/Time 08/16/2018 16:30:00 EDT Exam CR Femur 2+ Views Left n Ordering Physician MD LESLIE, SOHAN MEDINA Accession Number [id number] CPT4 Codes 05515 () Reason For Exam to see top [...] Transcribed Date and Time: 08/16/2018 4:59 Normal [facility] CR Knee 1 or 2 Views Lefton 08-16-2018 CR Knee 1 or 2 Views Left Patient Name: CHARLI PORRAS Diagnostic Radiology Exam Date/Time 08/16/2018 14:53:00 EDT Exam CR Knee 1 or 2 Views Left Ordering Physician FERNY GARCIA NICHOLAS A Accession Number [id number] CPT4 Codes 00073 () Reason For Exam s/p TKA Report [...] Transcribed Date and Time: 08/16/2018 4:59 Normal [facility] Glucose,Bedsideon 08-16-2018 Glucose [Mass/Vol] 292 mg/dL High 70-[address] [facility] Comment on above: Result Comment: Test performed by glucose meter. Results may be 10%-15% lower than serum/plasma values. (CLIA ID [id number]) Performed By: #### P T #### [facility] [address] [place] [address] Glucose [Mass/Vol] 246 mg/dL High [address] [place] [address] Comment on above: Result Comment: Test performed by glucose meter. Results may be 10%-15% lower than serum/plasma values. (CLIA ID [id number]) Performed By: #### P T #### [facility] [address] [place] [address] Glucose [Mass/Vol] 261 mg/dL [address] Comment on above: Result Comment: Test performed by glucose meter. Results may be 10%-15% lower than serum/plasma values. (CLIA ID [id number]) Performed By: #### P T #### [facility] [address] [place] [address] Glucose [Mass/Vol] 323 mg/dL [address] Comment on above: Result Comment: Test performed by glucose meter. Results may be 10%-15% lower than serum/plasma values. (CLIA ID [id number]) Performed By: #### B GLU #### [place] [address] [place] [address] Glucose [Mass/Vol] 333 mg/dL [address] Comment on above: Result Comment: Test performed by glucose meter. Results may be 10%-15% lower than serum/plasma values. (CLIA ID [id number]) Performed By: #### B GLU #### [facility] [address] [place] [address] Glucose [Mass/Vol] 301 mg/dL [address] Comment on above: Result Comment: Test performed by glucose meter. Results may be 10%-15% lower than serum/plasma values. (CLIA ID [id number]) Performed By: #### B GLU #### [facility] [address] [place] [address] Glucose [Mass/Vol] 317 mg/dL High 70-100 [facility] Comment on above: Result Comment: Test performed by glucose meter. Results may be 10%-15% lower than serum/plasma values. (CLIA ID [id number]) Performed By: #### B GLU #### [facility] [address] [place] [address] Glucose [Mass/Vol] 198 mg/dL High 70-100 [facility] Comment on above: Result Comment: Test performed by glucose meter. Results may be 10%-15% lower than serum/plasma values. (CLIA ID [id number]) Performed By: #### B GLU #### [facility] [employer] [facility] [address] [place] [address] Op Noteon 08-16-2018 Op Note [facility] [address] [facility] [address] Dept: [phone] Loc: [phone] Operative Report Patient Name: Charli Porras Date of : 1950 Date of Surgery: 08/16/18 Providers Performing: Surgeon: Sohan Gilliland MD Medical Chemist (s): cookie [email or web address], qamar calloway Preoperative Diagnosis: left Failed total knee Postoperative [...] knee as well as revision performed in [place] by Dr. Graham. Is diagnosed with a [...] and the patient's name, medical record, number, [id number], and operative side was verified with the [...] reverse curettes and pituitary instruments. A laminar anode machine operator was then placed and a posterior synovectomy was completed. At this point the knee was irrigated with pulse lavage with 9L of antibiotic-impregnate d irrigation fluid. At this point the bony [...] motion and patellar tracking, as well as adventist of the joint line. The components were affixed utilizing the [employer] Simplex P antibiotic bone cement in a [...] check Signed by: Sohan Gilliland MD Normal [facility] Prothrombin Timeon 9 INR Coag (PPP) [Relative time] 1.2 High 0.9-1.1 [facility] Comment on above: Result Comment: Campos mmended [...] Infarction Performed By: #### P T #### [facility] [address] [place] [address] PT Coag (PPP) [Time] 12.4 s High 9.0-12.0 [facility] Comment on above: Result Comment: . Performed By: #### P T #### [facility] [address] [place] [address] TS GELon 08-16-2018 TS GEL ABO Group: A Rh, Gel: NEG Antibody Screen Gel: NEG Normal [facility] Comment on above: Performed By: #### T SGL #### [facility] [address] [place] [address] CULTURE ANAEROBEon 9 CULTURE ANAEROBE CULTURE ANAEROBE --> Status: F No growth of anaerobes at 5 days. Normal [facility] Comment on above: Order Comment: Speci men Source Comment:not recvd in sterile container,centrif. in spud Performed By: #### D LAUREN WALTON, CRSTL #### [facility] [address] [place] [address] CULTURE AND STAIN - FLUIDon 05-23-2018 CULTURE AND STAIN - FLUID CULTURE & STAIN - FLUID --> Status: F No growth at 5 days. Normal [facility] Comment on above: Order Comment: Speci men Source Comment:not recvd in sterile container,centrif. in spud Performed By: #### D LAUREN WALTON, CRSTL #### [facility] [address] [place] [address] Basic Metabolic Panelon 05-04 Calcium [Mass/Vol] 9.1 mg/dL Normal 8.4-10.4 [facility] Comment on above: Performed By: #### D LAUREN WALTON, CRSTL #### [facility] [address] [place] [address] Glucose [Mass/Vol] 165 mg/dL High 70-100 [facility] Comment on above: Performed By: #### D LAUREN WALTON, CRSTL #### [facility] [address] [place], [place] Anion gap [Moles/Vol] 7 Normal [facility] Comment on above: Performed By: #### D LAUREN WALTON, CRSTL #### [facility] [address] [place], [place] CO2 [Moles/Vol] 27 mmol/L Normal 22-30 [facility] Comment on above: Performed By: #### D ANTON, EDWARDC, CRSTL #### [facility] [address] [place] [address] Creatinine [Mass/Vol] 1.58 mg/dL High 0.52-1.25 [facility] Comment on above: Performed By: #### D EDWARD WALTONC, CRSTL #### [facility] [address] [place], [place] GFR/1.73 sq M predicted among blacks MDRD (S/P/Bld) [Vol rate/Area] 53.0 mL/min/{1.73_m2} Normal >60 [facility] Comment on above: Performed By: #### D LAUREN WALTON, DEMETRIUS #### [place] [address] [place] [address] GFR/1.73 sq M predicted among non-blacks MDRD (S/P/Bld) [Vol rate/Area] 43.7 mL/min/{1.73_m2} Normal >60 [facility] Comment on above: Result Comment: Sour ce- MDRD equation with creatinine calibration to IDMS(NKDEP) eGFR not recommended for drug dose adjustment Performed By: #### LAUREN GRIJALVA, DEMETRIUS #### [place] [address] [place] [address] Urea nitrogen [Mass/Vol] 33 mg/dL High 7-20 [facility] Comment on above: Performed By: #### LAUREN GRIJALVA, CRSULICES #### [place] [address] [place] [address] Chloride [Moles/Vol] 104 mmol/L Normal 98-107 [facility] Comment on above: Performed By: #### D LAUREN WALTON, CRSTL #### [place] [address] [place] [address] Potassium [Moles/Vol] 4.3 mmol/L Normal 3.5-5.1 [facility] Comment on above: Performed By: #### LAUREN GRIJALVA, CRSTL #### [place] [address] [place] [address] Sodium [Moles/Vol] 138 mmol/L Normal 135-145 [facility] Comment on above: Performed By: #### LAUREN GRIJALVA, CRSTL #### [place] [address] [place] [address] C-Reactive Proteinon 15- 019 CRP [Mass/Vol] 19.4 mg/L High 0.0-6.0 [facility] Comment on above: Result Comment: . Performed By: #### P T, ESR, CRP2 #### [address] [address] CR Femur 2+ Views Lefton CR Femur 2+ Views Left Patient Name: CHARLI PORRAS Diagnostic Radiology Exam Date/Time 2018 04:30:02 EST Exam CR Femur 2+ Views Left n Ordering Physician MD BERNABE ADAM Accession Number [id number] CPT4 Codes 85076 () Reason For Exam proximal femur Report [...] Transcribed Date and Time: 2018 4:34 Normal [facility] CT Head or Brain w/o Contras ton 2018 CT Head or Brain w/o Contrast Patient Name: CHARLI PORRAS CT Exam Date/Time 2018 04:36:[address] Head or Brain w/o Contrast Ordering Physician [id number] FORD Accession Number [id number] CPT4 Codes 82925 () Reason For Exam HEAD TRAUMA, CLOSED, [...] Transcribed Date and Time: 2018 5:[address] [facility] Cell Count,Body Fluidon 05-04 Nucleated Cells 21 {cells}/uL Normal [facility] Comment on above: Performed By: #### D LAUREN WALTON, CRSTL #### [facility] [address] [place], [place] Fluid Type knee Normal [facility] Comment on above: Performed By: #### LAUREN GRIJALVA, CRSTL #### [place] [address], [place] Crystals,Body Fluidon 2018 Crystals LM Nom (Urine sed) Negative Normal [facility] Comment on above: Performed By: #### D IFEDWARD GAYC, CRSTL #### [facility] [address] [place], [place] Fluid Type \[id number]\ Normal [facility] Comment on above: Performed By: #### D IFDEIDRA FLDCC, CRSTL #### [facility] [address] [place], [place] Differential,Body Fluidson 0 2018 Lymphocytes/100 WBC (Bld) 10 % Normal [facility] Comment on above: Performed By: #### D IFBF FLDCC, CRSTL #### [facility] [address] [place], [place] Monocytes/100 WBC (Bld) 11 % Normal [facility] Comment on above: Performed By: #### D IFBF, FLDCC, CRSTL #### [facility] [address] [place] [address] Neutrophils/100 WBC (Bld) 79 % Normal [facility] Comment on above: Performed By: #### D IFBF, FLDCC, CRSTL #### [facility] [address] [place] [address] Cells Counted for Diff 100 Normal [facility] Comment on above: Performed By: #### D IFBF, FLDCC, CRSTL #### [facility] [address] [place] [address] Glucose,Bedsideon 2018 Glucose [Mass/Vol] 175 mg/dL High 70-100 [facility] Comment on above: Result Comment: Test performed by glucose meter. Results may be 10%-15% lower than serum/plasma values. (CLIA ID [id number]) Performed By: #### D IFBF, FLDCC, CRSTL #### [facility] [address] [place] [address] Glucose [Mass/Vol] 165 mg/dL High 70-100 [facility] Comment on above: Result Comment: Test performed by glucose meter. Results may be 10%-15% lower than serum/plasma values. (CLIA ID [id number]) Performed By: #### D IFBF, FLDCC, CRSTL #### [facility] [address] [place] [address] Glucose [Mass/Vol] 144 mg/dL High 70-100 [facility] Comment on above: Result Comment: Test performed by glucose meter. Results may be 10%-15% lower than serum/plasma values. (CLIA ID [id number]) Performed By: #### B GLU #### [facility] [address] [place] [address] Hemogramon 2018 Erythrocyte distribution width (RBC) [Ratio] 15.1 % High 11.5-14.5 [facility] Comment on above: Performed By: #### D IFBF, FLDCC, CRSTL #### [facility] [address] [place], [place] Hematocrit (Bld) [Volume fraction] 40.8 % Normal 40.0-52.0 [facility] Comment on above: Performed By: #### D IFBF, FLDCC, CRSTL #### [place] [address], [place] Hemoglobin (Bld) [Mass/Vol] 13.6 g/dL Normal 13.0-18.0 [facility] Comment on above: Performed By: #### D IFBF, FLDCC, CRSTL #### [place] [address] [place], [place] MCH (RBC) [Entitic mass] 29.7 pg Normal 26.0-34.0 [facility] Comment on above: Performed By: #### D IFBF, FLDCC, CRSTL #### [place] [address], [place] MCHC (RBC) [Mass/Vol] 33.4 % Normal 32.0-36.0 [facility] Comment on above: Performed By: #### D IFBF, FLDCC, CRSTL #### [place] [address], [place] MCV (RBC) [Entitic vol] 89.0 fL Normal 80.0-98.0 [facility] Comment on above: Performed By: #### D IFBF, FLDCC, CRSTL #### [place] [address], [place] Platelet mean volume (Bld) [Entitic vol] 8.1 fL Normal 7.4-10.4 [facility] Comment on above: Performed By: #### D IFBF, FLDCC, CRSTL #### [place] [address] [place], [place] Platelets (Bld) [#/Vol] 144 10*3/uL Normal 140-440 [facility] Comment on above: Performed By: #### D IFBF, FLDCC, CRSTL #### [place] [address], [place] RBC (Bld) [#/Vol] 4.59 10*6/uL Normal 4.40-5.90 [facility] Comment on above: Performed By: #### D ANTON, LAUREN, CRSULICES #### [facility] [address] [place], [place] WBC (Bld) [#/Vol] 6.4 10*3/uL Normal 3.6-10.7 [facility] Comment on above: Performed By: #### D ANTON, LAUREN, DEMETRIUS #### [facility] [address] [place], [place] Prothrombin Timeon 9 INR Coag (PPP) [Relative time] 1.5 High 0.9-1.1 [facility] Comment on above: Result Comment: Campos mmended [...] By: #### P T, ESR, CRP2 #### [facility] [address] [place], [place] PT Coag (PPP) [Time] 14.8 s High 9.0-12.0 [facility] Comment on above: Result Comment: . Performed By: #### P T, ESR, CRP2 #### [facility] [address] [place], [place] STAIN GRAMon 2018 STAIN GRAM STAIN GRAM --> Status: F Moderate polymorphonuclear cells/lpf. Moderate mononuclear cells/lpf No organisms seen. Moderate mononuclear cells/lpf No organisms seen. Normal [facility] Comment on above: Order Comment: Speci men Source Comment:not recvd in sterile container, centrif. in spud Performed By: #### C /MARGARITO, S/GRM, CXFLD #### [facility] [address] [place] [address] Sed Rateon 2018 Sed Rate 11 mm/h High 0-[address] [facility] [employer] [facility] Comment on above: Performed By: #### P T, ESR, CRP2 #### [facility] [address] [place] [address] CBC WITH DIFFon 08-25-2016 ABSOLUTE BASO 0.10 K/UL Normal 0.00-0.20 [facility] ABSOLUTE EOS 0.10 K/UL Normal 0-0.33 [facility] ABSOLUTE LYMPHOCYTE 2.00 K/UL Normal 1.1-4.8 [facility] ABSOLUTE MONOCYTE 0.70 K/UL Normal 0.2-0.7 [facility] ABSOLUTE NEUTROPHIL 5.30 K/UL Normal 1.83-8.70 [facility] Basophils Auto #/vol (Bld) 1.0 % Normal 0.0-1.5 [facility] DIFF TYPE AUTO Normal [facility] Eosinophils/100 leukocytes 1.8 % Normal 0.0-3.0 [facility] Erythrocyte distribution width Auto Ratio (RBC) 14 % Normal 10.9-14.3 [facility] Erythrocytes (RBC) 4.74 M/UL Normal 4.50-5.50 [facility] Hematocrit (HCT) 42.2 % Normal 41.0-50.0 [facility] Hemoglobin mass conc (Bld) 14.3 g/dL Normal 13.5-16.5 [facility] Lymphocytes/100 leukocytes 24.3 % Normal 24-44 [facility] MCH 30.3 pg Normal 28.0-34.0 [facility] MCHC mass conc (RBC) 34.0 MG/DL Normal 33.0-37.0 [facility] MCV 89.1 fL Normal 80-100 [facility] Monocytes/100 leukocytes 8.6 % Normal 3.4-9.0 [facility] NEUTROPHIL 64.3 % Normal 40.0-74.0 [facility] Platelets 162 10*3/uL Normal 150-450 [facility] WBC (Leukocytes) 8.2 10*3/uL Normal 4.5-11.0 [facility] PROTIME COUMADINon 7 INR Coag RelTime (PPP) 4.21 HH Abnormal 2.0-3.5 [facility] RADon 08-25-2016 KNEE,LEFT (MIN 4 VIEWS) CPT [id number] [facility] IM Normal [facility] CBC WITHOUT DIFFon 6 Erythrocyte distribution width Auto Ratio (RBC) 14.2 % Normal 10.9-14.3 [facility] Erythrocytes (RBC) 4.87 M/UL Normal 4.50-5.50 [facility] Hematocrit (HCT) 42.7 % Normal 41.0-50.0 [facility] Hemoglobin mass conc (Bld) 14.3 g/dL Normal 13.5-16.5 [facility] MCH 29.4 pg Normal 28.0-34.0 [facility] MCHC mass conc (RBC) 33.5 MG/DL Normal 33.0-37.0 [facility] MCV 87.6 fL Normal 80-100 [facility] Platelets 180 10*3/uL Normal 150-450 [facility] WBC (Leukocytes) 9.6 10*3/uL Normal 4.5-11.0 [facility] COMPREHENSIVE MEon 6 Alanine aminotransferase (ALT) 22 U/L Normal 10-63 [facility] Albumin 4.3 g/dL Normal 3.4-4.8 [facility] Albumin/Globulin Ratio 1.2 {ratio} Normal 1.1-2.2 S [facility] ALK PHOS 44 U/L Normal 42-121 [facility] Anion gap 10 mmol/L Normal 3-11 [facility] Aspartate aminotransferase (AST) 26 U/L Normal 10-41 [facility] Bilirubin (direct) 0.8 mg/dL Normal 0.3-1.5 [facility] Calcium 9.6 mg/dL Normal 8.5-10.5 [facility] Chloride 105 mmol/L Normal 98-107 [facility] CO2 21 mmol/L Normal 21-31 [facility] Creatinine 1.8 mg/dL Abnormal 0.6-1.3 [facility] eGFR (non-black) 45.9 mL/min/{1.73_m2} Abnormal 60.0-128 .0 [facility] eGFR (non-black) 37.9 mL/min/{1.73_m2} Abnormal 60.0-128 .0 [facility] Globulin 3.7 g/dL Normal 1.9-3.9 [facility] Glucose mass conc 101 mg/dL Abnormal 70-99 [facility] Potassium molar conc 4.6 mmol/L Normal 3.6-5.0 [facility] Protein 8 g/dL Abnormal 5.9-7.8 [facility] Sodium 136 mmol/L Normal 135-145 [facility] Urea nitrogen 34 mg/dL Abnormal 6-20 [facility] D DIMERon 04-25-2016 D DIMER 1569.6 H NG/ML Abnormal 0-499 [facility] EKGon 04-25-2016 cardio: EKG Test Reason : Normal [facility] ESR, SED RATEon 04-25-2016 ESR /SEDRATE 10 MM/HR Normal 0-20 [facility] HEMOGLOBIN A1Con 04-25-2016 Hemoglobin A1c/Hemoglobin.total mass fraction (Bld) 7 % Abnormal 4.0-6.0 [facility] TSHon 04-25-2016 Thyroid stimulating hormone (TSH) 2.79 UIU/ML Normal 0.34-5.60 [facility] CBC WITH DIFFon 01-04-2016 ABSOLUTE BASO 0.10 K/UL Normal 0.00-0.20 [facility] ABSOLUTE EOS 0.20 K/UL Normal 0-0.33 [facility] ABSOLUTE LYMPHOCYTE 1.80 K/UL Normal 1.1-4.8 [facility] ABSOLUTE MONOCYTE 0.50 K/UL Normal 0.2-0.7 [facility] ABSOLUTE NEUTROPHIL 3.30 K/UL Normal 1.83-8.70 [facility] Basophils Auto #/vol (Bld) 0.9 % Normal 0.0-1.5 [facility] DIFF TYPE AUTO Normal [facility] Eosinophils/100 leukocytes 4.2 % Abnormal 0.0-3.0 [facility] Erythrocyte distribution width Auto Ratio (RBC) 14.8 % Abnormal 10.9-14.3 [facility] Erythrocytes (RBC) 4.52 M/UL Normal 4.50-5.50 [facility] Hematocrit (HCT) 40.1 % Abnormal 41.0-50.0 [facility] Hemoglobin mass conc (Bld) 13.3 g/dL Abnormal 13.5-16.5 [facility] Lymphocytes/100 leukocytes 29.9 % Normal 24-44 [facility] MCH 29.4 pg Normal 28.0-34.0 [facility] MCHC mass conc (RBC) 33.2 MG/DL Normal 33.0-37.0 [facility] MCV 88.7 fL Normal 80-100 [facility] Monocytes/100 leukocytes 8.5 % Normal 3.4-9.0 [facility] NEUTROPHIL 56.5 % Normal 40.0-74.0 [facility] Platelets 168 10*3/uL Normal 150-450 [facility] WBC (Leukocytes) 5.9 10*3/uL Normal 4.5-11.0 [facility] COMPREHENSIVE MEon 6 Alanine aminotransferase (ALT) 20 U/L Normal 10-63 [facility] Albumin 4 g/dL Normal 3.4-4.8 [facility] Albumin/Globulin Ratio 1.1 {ratio} Normal 1.1-2.2 S [facility] ALK PHOS 43 U/L Normal 42-121 [facility] Anion gap 9 mmol/L Normal 3-11 [facility] Aspartate aminotransferase (AST) 20 U/L Normal 10-41 [facility] Bilirubin (direct) 0.6 mg/dL Normal 0.3-1.5 [facility] Calcium 9.6 mg/dL Normal 8.5-10.5 [facility] Chloride 108 mmol/L Abnormal 98-107 [facility] CO2 22 mmol/L Normal 21-31 [facility] Creatinine 1.7 mg/dL Abnormal 0.6-1.3 [facility] eGFR (non-black) 49 mL/min/{1.73_m2} Abnormal 60.0-128.0 [facility] eGFR (non-black) 40.5 mL/min/{1.73_m2} Abnormal 60.0-128 .0 [facility] Globulin 3.5 g/dL Normal 1.9-3.9 [facility] Glucose mass conc 263 mg/dL Abnormal 70-99 [facility] Potassium molar conc 4.9 mmol/L Normal 3.6-5.0 [facility] Protein 7.5 g/dL Normal 5.9-7.8 [facility] Sodium 139 mmol/L Normal 135-145 [facility] Urea nitrogen 39 mg/dL Abnormal 6-20 [facility] HEMOGLOBIN A1Con 01-04-2016 Hemoglobin A1c/Hemoglobin.total mass fraction (Bld) 6.7 % Abnormal 4.0-6.0 [facility] LIPID B PROFILEon 01-04-2016 Cholesterol 170 mg/dL Normal 140-200 [facility] HDL Cholesterol 31 mg/dL Normal 29-71 [facility] LDL Cholesterol 102 MG/DL Normal 0-129 [facility] LDL to HDL Ratio 3.3 Normal [facility] Triglyceride 297 mg/dL Abnormal 41-189 [facility] PROTIME COUMADINon 6 INR Coag RelTime (PPP) 3.53 H Abnormal 2.0-3.5 [facility] URINE MICRO ALBUon 6 UR RDM MICROALBUMIN 39.4 H UG/ML Abnormal 0.0-19.0 [place] Vital Signs Date Time Vital Sign Value Performing Clinician Faci lity 01-10-2025 09:51-0400 Body temperature 97.8 [degF] [employer] MELY Work Phone: [facility] 01-10-2025 09:51-0400 Diastolic blood pressure 75 mm[Hg] [employer] LIGHTER Work Phone: [facility] 01-10-2025 09:51-0400 Heart rate 74 /min [employer] Work Phone: [facility] 01-10-2025 09:51-0400 Respiratory rate 18 /min [employer] Work Phone: [facility] 01-10-2025 09:51-0400 SaO2% (BldA) [Mass fraction] 100 % [employer]IGHTER Work Phone: [phone])086-286467 [place] [address] 01-10-2025 09:51-0400 Systolic blood pressure 156 mm[Hg] [employer] Work Phone: [facility] 01-09-2025 12:32-0400 Body height 175.26 cm [employer] Work Phone: [facility] 01-09-2025 12:32-0400 Body weight 130.8 kg [employer] Work Phone: [phone](871)254-417367 [place] [address] 01-09-2025 06:00-0400 Body mass index (BMI) [Ratio] 42.7 kg/m2 [employer] Work Phone: [phone](283)137-703424 [place] [address] 01-06-2025 22:47-0400 Body temperature 98 [degF] [employer] Work Phone: 3(422)460-591524 [place] [address] 01-06-2025 22:47-0400 Diastolic blood pressure 64 mm[Hg] [employer] Work Phone: 2(829)489-297567 [place] [address] 01-06-2025 22:47-0400 Heart rate 84 /min [employer] Work Phone: [phone](017)601-822467 [place] [address] 01-06-2025 22:47-0400 Respiratory rate 15 /min [employer] Work Phone: [phone])[phone] [place] [address] 01-06-2025 22:47-0400 SaO2% (BldA) [Mass fraction] 100 % [employer] Work Phone: [phone] [place] [address] 01-06-2025 22:47-0400 Systolic blood pressure 105 mm[Hg] [employer] Work Phone: [phone](775)858-346567 [place] [address] 01-06-2025 18:14-0400 Body height 175.26 cm [employer] Work Phone: [facility] 01-06-2025 18:14-0400 Body mass index (BMI) [Ratio] 43.3 kg/m2 [employer] Work Phone: [phone])468-631567 [place] [address] 01-06-2025 18:14-0400 Body weight 133.2 kg ABHISHEK BOONE Work Phone: [facility] 10-19-2024 15:31-0400 Body temperature 97.9 [degF] No Primary Care Physician [facility] 10-19-2024 15:31-0400 Diastolic blood pressure 69 mm[Hg] No Primary Care Physician [facility] 10-19-2024 15:31-0400 Heart rate 80 /min No Primary Care Physician [facility] 10-19-2024 15:31-0400 Respiratory rate 18 /min No Primary Care Physician [facility] 10-19-2024 15:31-0400 SaO2% (BldA) [Mass fraction] 97 % No Primary Care Physician [facility] 10-19-2024 15:31-0400 Systolic blood pressure 155 mm[Hg] No Primary Care Physician [facility] 10-19-2024 14:30-0400 Body height 175.26 cm No Primary Care Physician [facility] 10-19-2024 14:30-0400 Body weight 131.6 kg No Primary Care Physician [facility] 10-19-2024 05:24-0400 Body mass index (BMI) [Ratio] 42.8 kg/m2 No Primary Care Physician [facility] 10-14-2024 01:00-0400 Body temperature 98.3 [degF] No Primary Care Physician [facility] 10-14-2024 01:00-0400 Diastolic blood pressure 73 mm[Hg] No Primary Care Physician [facility] 10-14-2024 01:00-0400 Heart rate 68 /min No Primary Care Physician [facility] 10-14-2024 01:00-0400 Respiratory rate 17 /min No Primary Care Physician [facility] 10-14-2024 01:00-0400 SaO2% (BldA) [Mass fraction] 98 % No Primary Care Physician [facility] 10-14-2024 01:00-0400 Systolic blood pressure 127 mm[Hg] No Primary Care Physician [facility] 10-13-2024 20:30-0400 Body mass index (BMI) [Ratio] 44.5 kg/m2 No Primary Care Physician [facility] 10-13-2024 20:30-0400 Body weight 136.9 kg No Primary Care Physician [facility] 10-13-2024 17:47-0400 Body height 175.26 cm No Primary Care Physician [facility] 08-23-2024 13:35-0400 Body temperature 97.9 [degF] No Primary Care Physician [facility] 08-23-2024 13:35-0400 Diastolic blood pressure 61 mm[Hg] No Primary Care Physician [facility] 08-23-2024 13:35-0400 Heart rate 67 /min No Primary Care Physician [facility] 08-23-2024 13:35-0400 Respiratory rate 17 /min No Primary Care Physician [facility] 08-23-2024 13:35-0400 SaO2% (BldA) [Mass fraction] 95 % No Primary Care Physician [facility] 08-23-2024 13:35-0400 Systolic blood pressure 151 mm[Hg] No Primary Care Physician [facility] 08-23-2024 06:00-0400 Body mass index (BMI) [Ratio] 46 kg/m2 No Primary Care Physician [facility] 08-23-2024 06:00-0400 Body weight 141 kg No Primary Care Physician [facility] 08-22-2024 11:03-0400 Body height 175.26 cm No Primary Care Physician [facility] 08-21-2024 09:18-0400 Inhaled oxygen flow rate 2 L/min No Primary Care Physician [facility] 08-20-2024 06:00-0400 Body temperature 98.1 [degF] No Primary Care Physician [facility] 08-20-2024 06:00-0400 Diastolic blood pressure 58 mm[Hg] No Primary Care Physician [facility] 08-20-2024 06:00-0400 Heart rate 78 /min No Primary Care Physician [facility] 08-20-2024 06:00-0400 Inhaled oxygen flow rate 2 L/min No Primary Care Physician [facility] 08-20-2024 06:00-0400 Respiratory rate 18 /min No Primary Care Physician [facility] 08-20-2024 06:00-0400 SaO2% (BldA) [Mass fraction] 98 % No Primary Care Physician [facility] 08-20-2024 06:00-0400 Systolic blood pressure 100 mm[Hg] No Primary Care Physician [facility] 08-19-2024 23:48-0400 Body height 175.01 cm No Primary Care Physician [facility] 08-19-2024 23:48-0400 Body mass index (BMI) [Ratio] 44.6 kg/m2 No Primary Care Physician [facility] 08-19-2024 23:48-0400 Body weight 136.8 kg No Primary Care Physician [facility] 11-06-2022 16:37-0400 Body temperature 97.8 [degF] [facility] 11-06-2022 16:37-0400 Diastolic blood pressure 91 mm[Hg] [facility] 11-06-2022 16:37-0400 Heart rate 72 /min [facility] 11-06-2022 16:37-0400 Respiratory rate 18 /min [facility] 11-06-2022 16:37-0400 SaO2% (BldA) [Mass fraction] 96 % [facility] 11-06-2022 16:37-0400 Systolic blood pressure 154 mm[Hg] [facility] 11-06-2022 14:11-0400 Body height 175.[address] [facility] 11-06-2022 14:11-0400 Body mass index (BMI) [Ratio] 48.2 kg/m2 [facility] 11-06-2022 14:11-0400 Body weight 148.[address] [facility] 06-02-2022 08:00-0500 Heart rate 92 /min Ericka Ange Work Phone: [facility] 06-02-2022 08:00-0500 Respiratory rate 88 /min Ericka Ange Work Phone: [facility] 06-02-2022 08:00-0500 SaO2% (BldA) [Mass fraction] 90 % Ericka Ange Work Phone: [facility] 06-02-2022 07:55-0500 Body temperature 97.6 [degF] Ericka Ange Work Phone: [facility] 06-02-2022 07:55-0500 Diastolic blood pressure 64 mm[Hg] Ericka Ange Work Phone: [facility] 06-02-2022 07:55-0500 Systolic blood pressure 125 mm[Hg] Ericka Ange Work Phone: [facility] 05-31-2022 19:20-0500 Body height 175.26 cm Ericka Ange Work Phone: [facility] 05-31-2022 19:20-0500 Body mass index (BMI) [Ratio] 44.2 kg/m2 Ericka Ange Work Phone: [facility] 05-31-2022 19:20-0500 Body weight 135.99 kg Ericka Ange Work Phone: [facility] 04-23-2022 15:22-0500 SaO2% (BldA) [Mass fraction] 96 % Ericka Ange Work Phone: [facility] 04-23-2022 11:55-0500 Body temperature 97.9 [degF] Ericka Ange Work Phone: [facility] 04-23-2022 11:55-0500 Diastolic blood pressure 94 mm[Hg] Ericka Ange Work Phone: [facility] 04-23-2022 11:55-0500 Heart rate 85 /min Ericka Ange Work Phone: [facility] 04-23-2022 11:55-0500 Respiratory rate 17 /min Ericka Ange Work Phone: [facility] 04-23-2022 11:55-0500 SaO2% (BldA) [Mass fraction] 98 % Ericka Ange Work Phone: [facility] 04-23-2022 11:55-0500 Systolic blood pressure 130 mm[Hg] Ericka Ange Work Phone: [facility] 04-19-2022 14:43-0500 Diastolic blood pressure 70 mm[Hg] Ericka Ange Work Phone: [facility] 04-19-2022 14:43-0500 Heart rate 89 /min Ericka Ange Work Phone: [facility] 04-19-2022 14:43-0500 Respiratory rate 18 /min Ericka Ange Work Phone: [facility] 04-19-2022 14:43-0500 SaO2% (BldA) [Mass fraction] 99 % Ericka Ange Work Phone: [facility] 04-19-2022 14:43-0500 Systolic blood pressure 107 mm[Hg] Ericka Ange Work Phone: [facility] 04-19-2022 03:04-0500 Body temperature 99.4 [degF] Ericka Ange Work Phone: [facility] 04-19-2022 00:16-0500 Body height 175.26 cm Ericka Ange Work Phone: [facility] 04-19-2022 00:16-0500 Body weight 148.78 kg Ericka Ange Work Phone: [facility] 08-25-2016 19:00-0400 BP Diastolic 94 mm[Hg] [facility] 08-25-2016 19:00-0400 BP Systolic 162 mm[Hg] [facility] 08-25-2016 19:00-0400 Pulse (Heart Rate) 74 /min [facility] 08-25-2016 19:00-0400 Respiratory Rate 18 /min [facility] 08-25-2016 14:38-0400 Body Temperature 97.7 [degF] [facility] Encounters Encounter Date Encounter Type Care Provider Facility Start: 01-18-2025 ambulatory Ezequiel FRAZIER Fa cility:[facility] Start: 01-13-2025 ambulatory Efewphoenixbe Daniele OLS Fa cility:[facility] Start: 01-11-2025 ambulatory Efewphoenixbe Daniele OLS Fa cility:[facility] Start: 01-10-2025 Non-patient / Non-visit Dr. Mao Muse MD -[facility] Work Phone: Start: 01-09-2025 Non-patient / Non-visit Dr. Mao Muse MD -[facility] Work Phone: Start: 01-08-2025 Non-patient / Non-visit Dr. Mao Muse MD -[facility] Work Phone: Start: 01-07-2025 Non-patient / Non-visit Dr. Mao Muse MD -[facility] Work Phone: Start: 01-06-2025 ambulatory [facility] ty:[facility] Start: 01-06-2025 End: 01-10-2025 Evaluation and management of inpatient Dr. Ute Hancock MD -[facility] Work Phone: Start: 10-19-2024 Non-patient / Non-visit Dr. Jocelyn mcpherson MD -[facility] Work Phone: Start: 10-17-2024 Non-patient / Non-visit Dr. John Brownlee DO [facility] Work Phone: Start: 10-16-2024 Non-patient / Non-visit Dr. John Brownlee DO [facility] Work Phone: Start: 10-15-2024 Non-patient / Non-visit Dr. John Brownlee DO [facility] Work Phone: Start: 10-14-2024 Non-patient / Non-visit Dr. John Brownlee DO [facility] Work Phone: Start: 10-13-[facility] Start: 10-13-2024 End: 10-19-2024 Evaluation and management of inpatient Dr. Bisi Rivera DO -Progressive Care Unit Work Phone: Start: 08-23-2024 Non-patient / Non-visit Dr. Mao Muse MD [facility] Work Phone: Start: 08-22-2024 Non-patient / Non-visit Dr. Mao Muse MD [facility] Work Phone: Start: 08-21-2024 Non-patient / Non-visit Dr. Mao Muse MD [facility] Work Phone: Start: 08-20-2024 End: 08-23-2024 Evaluation and management of inpatient Dr. Saroj Gutierrez DO -Intensive Care Unit Work Phone: Start: 08-20-2024 Non-patient / Non-visit Dr. Bennett [facility] Work Phone: Start: 08-20-2024 ambulatory Mao Muse Facility[facility] Start: 03-18-2024 End: 03-18-2024 Emergency department patient visit No Primary Care Physician Facility:[facility] Start: 11-06-2022 End: 11-06-2022 Emergency department patient visit [facility] Work Phone: Start: 06-06-2022 ambulatory DEVIKA STEIN Facility:[facility] Start: 06-02-2022 Non-patient / Non-visit Alejandra ly Ange Work Phone: [facility] Start: 06-01-2022 Non-patient / Non-visit Alejandra ly Ange Work Phone: [facility] Start: 05-31-2022 End: 06-02-2022 Evaluation and management of inpatient Naresh Flowerspattie Facility:[facility] Start: 05-31-2022 End: 06-02-2022 Evaluation and management of inpatient Ericka Freemanbee Work Phone: [facility] [facility] Start: 04-23-2022 ambulatory Errol Ramirez ty:[facility] Start: 04-23-2022 Non-patient / Non-visit Alejandra ly Ange Work Phone: [facility] Hospitalist Start: 04-22-2022 Non-patient / Non-visit Alejandra ly Ange Work Phone: [facility] Start: 04-21-2022 Non-patient / Non-visit Alejandra ly Ange Work Phone: [facility] Hospital[facility] Start: 04-20-2022 Non-patient / Non-visit Alejandra ly Ange Work Phone: [facility] Start: 04-19-2022 Non-patient / Non-visit Alejandra ly Ange Work Phone: [facility] Hospitalist Start: 04-19-2022 Evaluation and management of inpatient Ericka Ange Work Phone: [facility] 3 Start: 04-19-2022 observation encounter Ericka Ange Work Phone: [facility] Work Phone: Start: 04-19-2022 End: 04-23-2022 ambulatory Ericka Ange Facility:[facility] Start: 04-19-2022 End: 04-23-2022 Evaluation and management of inpatient Ericka Ange Work Phone: [facility] Start: 04-19-2022 End: 04-23-2022 observation encounter Ericka Ange Work Phone: [facility] Work Phone: Start: 03-10-2022 ambulatory Sunita Barnes Facility :[facility] Start: 01-08-2022 ambulatory [facility] Facility:[facility] Start: 11-07-2021 ambulatory [facility] Facility:[facility] Start: 08-29-2021 ambulatory [facility] Facility:[facility] Start: 07-02-2021 End: 07-12-2021 Evaluation and management of inpatient UNKNOWN PROVIDER Facility:[facility] Start: 06-26-2021 ambulatory [facility] Facility:[facility] Start: 05-22-2021 ambulatory [facility] Facility:[facility] Start: 03-20-2021 ambulatory [facility] Facility:[facility] Procedures Date Procedure Procedure Detail Performing Clinician Start: 01-10-2025 Estimated creatinine clearance [facility]HISHEKJON [facility] Work Phone: Start: 01-06-2025 Urnls dip stick/tabl et reagent auto microscopy ABHISHEK PHOENIX MELY Work Phone: Start: 01-06-2025 Plain chest X-ray CARMELO [facility] Work Phone: Start: 01-06-2025 CT of head without contrast ABHISHEK MACIEL MELY Work Phone: Start: 01-06-2025 Estimated creatinine clearance [facility]HEKJON [facility] Work Phone: Start: 01-06-[address] [facility] Work Phone: Start: 10-19-2024 Estimated creatinine clearance No Primary [...] Treatment Date Care Activity Detail Author Start: 01-10-2025 Patient discharge [facility] Start: 01-07-2025 [facility] Start: 01-06-2025 Following clinical p athway protocol [facility] Start: 01-06-[address] [facility] Start: 01-06-2025 Assessment of risk o f venous thromboembolism [facility] Start: 01-06-[address] [facility] Start: 01-06-[address] [facility] Start: 01-06-2025 Insertion of cathete r into peripheral vein [facility] Start: 01-06-2025 Introduction of urin concha catheter [facility] Start: 01-06-2025 Measuring intake and output [facility] Start: 01-06-[address] [facility] Start: 01-06-2025 Providing care accor ding to standard [facility] Start: 01-06-2025 Provision of activit y privileges [facility] Start: 01-06-2025 Referral to occupati onal therapist [facility] Start: 01-06-2025 Referral to service [facility] Start: 01-06-2025 End: 01-06-2025 [facility] Start: 01-06-2025 Admission procedure [facility] Start: 01-06-2025 Hospital admission, emergency, from emergency room, medical nature [facility] Start: 01-06-2025 End: 01-07-2025 [facility] Start: 01-06-2025 Bacteria identified in Urine by Culture Urine Culture [facility] Start: 10-19-2024 Patient discharge [facility] Start: 10-17-2024 [facility] Start: 10-15-2024 [facility] Start: 10-14-2024 Following clinical p athway protocol [facility] Start: 10-14-2024 Assessment of risk o f venous thromboembolism [facility] Start: 10-14-[address] [facility] Start: 10-14-[address] [facility] Start: 10-14-[address] [facility] Start: 10-14-2024 Insertion of cathete r into peripheral vein [facility] Start: 10-14-2024 Measuring intake and output [facility] Start: 10-14-[address] [facility] Start: 10-14-2024 Providing care accor ding to [facility] Start: 10-14-2024 Provision of activit y privileges [facility] Start: 10-14-2024 Referral to occupati onal therapist [facility] Start: 10-14-2024 Referral to service [facility] Start: 10-13-2024 Hospital admission, emergency, from emergency room, medical nature [facility] Start: 10-13-2024 Verification routine [facility] Start: 10-13-2024 Admission procedure [facility] Start: 10-13-2024 End: 10-14-2024 [facility] Start: 10-13-2024 Bacteria identified in Blood by Culture Blood Culture [facility] Start: 10-13-2024 Bacteria identified in Urine by Culture Urine Culture [facility] Start: 08-23-2024 Referral to service [facility] Start: 08-23-2024 Patient discharge [facility] Start: 08-22-2024 Consultation [facility] Start: 08-22-2024 Referral to doll wig hackler [facility] Start: 08-21-2024 [facility] Start: 08-20-2024 Bacteria identified in Blood by Culture Blood Culture [facility] Start: 08-20-2024 Bacteria identified in Urine by Culture Urine Culture [facility] Start: 08-20-2024 Following clinical p athway protocol [facility] Start: 08-20-2024 Assessment of risk o f venous thromboembolism [facility] Start: 08-20-2024 Elevation of head of bed [facility] Start: 08-20-2024 Insertion of cathete r into peripheral vein [facility] Start: 08-20-2024 Measuring intake and output [facility] Start: 08-20-[address] [facility] Start: 08-20-2024 Providing care accor ding to standard [facility] Start: 08-20-2024 Referral to occupati onal therapist [facility] Start: 08-20-2024 Referral to service [facility] Start: 08-20-[address] [facility] Start: 08-20-2024 End: 08-20-2024 [facility] Start: 08-20-[address] [facility] Start: 08-20-[address] [facility] Start: 08-20-2024 Verification routine [facility] Start: 08-20-2024 Admission procedure [facility] Start: 08-20-2024 Hospital admission, emergency, from emergency room, medical nature [facility] Start: 08-20-2024 End: 08-20-2024 [facility] Start: 06-02-2022 [facility] Start: 06-02-2022 Patient discharge [facility] Start: 05-31-2022 Referral to occupati onal therapist [facility] Start: 05-31-2022 End: 06-01-2022 Referral to service [facility] Start: 05-31-2022 Hospital admission [facility] Start: 05-31-2022 Vascular disease ris k assessment [facility] Start: 04-27-2022 [facility] Start: 04-26-2022 End: 04-26-2022 [facility] Start: 04-25-2022 End: 04-25-2022 [facility] Start: 04-24-2022 End: 04-24-2022 [facility] Start: 04-23-2022 Patient discharge [facility] Start: 04-23-2022 End: 04-23-2022 [facility] Start: 04-22-2022 [facility] Start: 04-21-2022 [facility] Start: 04-21-2022 [facility] Start: 04-21-2022 [facility] Start: 04-21-2022 [facility] Start: 04-20-2022 General health panel [facility] Start: 04-20-2022 [facility] Start: 04-19-2022 Referral to occupati onal therapist [facility] Start: 04-19-2022 Referral to service [place] Start: 04-19-2022 Hospital admission [facility] Start: 04-19-2022 Vascular disease ris k assessment [facility] Start: 04-19-2022 End: 04-19-2022 [facility] Start: 04-19-2022 [facility] Start: 04-19-2022 End: 04-19-2022 [facility] Start: 04-19-2022 Referral to service [place] Bacteria identified in Blood by Culture Blood Culture [facility] Bacteria identified in Unspecified specimen by Anaerobe+Aerobe culture [facility] Evaluation of urine specimen [facility] Gabapentin [Mass/vol ume] in Serum, Plasma or Blood [facility] Influenza virus B Ag [Presence] in Unspecified specimen [facility] INR in Platelet poor plasma by Coagulation assay [facility] Ketones [Presence] in Urine [facility] Lactic acid measurement [facility] Microbial culture Blood [facility] Microbial culture Blood Culture [facility] Nitrate [Presence] in Urine [facility] Patient Education [facility] Work Phone: Patient referral [facility] Work Phone: pH of Urine [facility] Prothrombin time (PT ) in Blood by Coagulation assay [facility] SARS-CoV-2 Rapid RNA (RT-PCR) SARS-CoV-2 Rapid RNA (RT-PCR) [facility] Specific gravity of Urine [facility] Urinalysis, blood, qualitative [facility] Urine culture Urine Culture [facility] Urine culture [facility] Urine culture [facility] Urine culture [facility] Urine dipstick for glucose [facility] Urine dipstick for protein [facility] Urine examination [facility] Urine leukocyte test [facility] Immunizations Immunization Date Immunization Notes Care Provider Fa cili 02-11-2022 influenza, injectabl e, quadrivalent, preservative free No Primary Care Physician [facility] 03-05-2021 Covid (Moderna) No Primary C are Physician [facility] 03-05-2021 Influenza, injectabl e, Madin Heydi Canine Kidney, preservative free, quadrivalent No Primary Care Physician [facility] 07-24-2020 Covid (Moderna) No Primary C are Physician [facility] 06-26-2020 Covid (Moderna) No Primary C are Physician [facility] 02-06-2020 influenza, injectabl e, quadrivalent, preservative free No Primary Care Physician [facility] 02-06-2020 pneumococcal polysaccharide vaccine, 23 valent No Primary Care Physician [facility] 02-01-2019 influenza, injectabl e, quadrivalent, preservative free No Primary Care Physician [facility] 12-31-2018 Seasonal trivalent influenza vaccine, adjuvanted, preservative free ABHISHEK BOONE Work Phone: [facility] 05-03-2018 pneumococcal conjuga te vaccine, 13 valent No Primary Care Physician [facility] 01-08-2018 Seasonal trivalent influenza vaccine, adjuvanted, preservative free ABHISHEK BOONE Work Phone: [facility] pneumococcal polysaccharide vaccine, 23 valent [facility] Payers Date Payer Category Payer Unknown [id number] 2022 Medicare [id number] 2022 Unknown [id number] 2021 Private Health Insurance [id number] 2021 Self-pay 2021 Unknown [id number] Medicare [id number] Medicare MEDICARE OUTPATI ENT PART B [id number] Medicare MEDICARE PART A B [id number] Unknown [id number] .[id number]. 630 Unknown [id number] 2.840.1.993909.3.579.2. 630 Unknown [id number] .840.1.537786.3.579.2. 630 Unknown [id number] 2.16.840.1.332412.3.579.2. 630 Unknown [id number] 2.16.840.1.296759.3.579.2. 630 Unknown [id number] 2.16840.1.967287.3.579.2. 630 Unknown [id number] 2.16840.1.587377.3.579.2. 630 Unknown [id number] Unknown [id number] 2.16.840.1.238140.3.579.2. 212 Unknown [id number] 2.16.840.1.484863.3.579.2. 212 Unknown [id number] 2.16.840.1.898670.3.579.2. 921 Unknown [id number] 2.16.840.1.151960.3.579.2. 921 Unknown [id number] 2.16.840.1.975069.3.579.2. 462 Unknown [id number] 2.16.840.1.257161.3.579.2. 462 Unknown [id number] 2.16.840.1.560188.3.579.2. 462 Unknown [id number] 2.16.840.1.065844.3.579.2. 462 Unknown [id number] 2.16.840.1.186752.3.579.2. 462 Unknown [id number] 2.16.840.1.837391.3.579.2. 462 Unknown [id number] 2.16.840.1.832838.3.579.2. 462 Unknown [id number] 2.16.840.1.444000.3.579.2. 462 Unknown [id number] 2.16.840.1.027308.3.579.2. 462 Unknown [id number] 2.16.840.1.586568.3.579.2. 462 Unknown [id number] 2.16.840.1.009193.3.579.2. 462 Unknown [id number] 2.16.840.1.014114.3.579.2. 462 Unknown [id number] 2.16.840.1.272086.3.579.2. 462 Unknown [id number] 2.16.840.1.872634.3.579.2. 462 Unknown [id number] 2.16.840.1.742475.3.579.2. 462 Unknown [id number] 2.16.840.1.345567.3.579.2. 462 Unknown [id number] 2.16.840.1.169438.3.579.2. 462 Unknown [id number] 2.16.840.1.620276.3.579.2. 462 Unknown [id number] 2.16.840.1.985088.3.579.2. 462 Unknown [id number] 2.16.840.1.286786.3.579.2. 462 Unknown [id number] 2.16.840.1.389644.3.579.2. 462 Unknown [id number] 2.16.840.1.661700.3.579.2. 462 Social History Date Type Detail Facility never a smoker [facility] Start: 04-19-2022 End: 01-06-2025 Tobacco smoking status NHIS Never smoked tobacco (finding) [facility] Start: 04-19-2022 No [facility] Start: 1950 Sex Assigned At Male [facility] Start: 11-06-2022 Tobacco smoking stat us ARIS Unknown if ever smoked [facility] Start: 08-20-2024 Sex Male (finding) [facility] Goals Date Patient Goal Desired Activity /State Functional Status Date Assessment Result Facility 01-10-2025 Functional status Ambulates [facility] Work Phone: 10-19-2024 Functional status Ambulates [facility] Work Phone: 08-23-2024 Functional status Chair [facility] Work Phone: 06-02-2022 Functional status Independent [facility] Work Phone: 06-02-2022 Functional status Speech Pattern Clear [facility] Work Phone: 05-31-2022 Functional status Fair [facility] Work Phone: 05-31-2022 Functional status Support Person Spouse S [facility] Work Phone: 04-23-2022 Functional status Independent [facility] Work [facility]: 04-22-2022 Functional status Hard of Hearing Maynard R [facility] Work Phone: 04-19-2022 Functional status [facility]Wheeled [facility]: 04-19-2022 Functional status Speech Pattern Appropri ate [facility] Work Phone: 04-19-2022 Functional status Normal [facility] Work Phone: Mental Status Date Assessment Result Facility 01-10-2025 Cognitive function Voice/Name [facility] Work Phone: 01-06-2025 Cognitive function Voice/Name [facility] Work Phone: 10-19-2024 Cognitive function Voice/Name [facility] Work Phone: 08-23-2024 Cognitive function Voice/Name [facility] Work Phone: 08-20-2024 Cognitive function Level Of Cons ciousness Follows Commands;Drowsy [facility] Work Phone: 06-02-2022 Cognitive function Impaired Cognition No [facility] Work Phone: 06-01-2022 Cognitive function [facility] Work Phone: 04-23-2022 Cognitive function [facility] Work Phone: 04-23-2022 Cognitive function Mood Descript ion Appropriate;Calm [facility] Work Phone: 04-19-2022 Cognitive function Mood Description [facility] Work Phone: Clinical Notes 04-19-2022 to 01-10-2025 Note Date & Type Note Facility 01-10-[address] [facility] 01-10-[address] [facility] 01-10-[address] [facility] 01-09-2025 Progress note Note Date/Time January 09, 2025 3:19pm [facility] Medical Records Department [address] [place] [address] Progress Note - Hospitalist 01/09/25 1516 MR#: [id number] Acct: [id number] Name: CHARLI PORRAS Rep #:[id number] : 1950 74 From: Mao Justin PCP: ABHISHEK ST Status:ADM IN Location: [place] [address] Reason for Visit Chief Complaint: Weakness, confusion, debility. Objective Data Objective Data Vital Signs: Vital Signs Temp Pulse Resp BP Pulse Ox O2 Del Method 97.9 F 96 18 128/61 H 100 Room Air 01/09/25 14:10 01/09/25 14:10 01/09/25 14:10 01/09/25 14:10 01/09/25 14:10 01/09/25 14:45 Oxygen Delivery Method Room Air Weight: 288 lb 5.834 oz Body Mass Index (BMI) 42.7 Intake & Output: Intake and Output for Last 24 Hours 01/07/25 01/08/25 01/09/25 23:59 23:59 23:59 Intake Total 1050 / 1050 1240 / 1240 240 / 240 Output Total 950 / 950 1000 / 1000 500 / 500 Balance 100 / 100 240 / 240 -260 / -260 Lab / Micro Data 01/07/25 06:37 01/07/25 06:37 Labs: Laboratory Results - last 24 hr 01/08/25 16:21: POC Glucose 174 H 01/08/25 20:41: POC Glucose 225 H 01/09/25 05:07: POC Glucose 144 H 01/09/25 10:48: POC Glucose 206 H Micro: Microbiology 01/06/25 19:55 Urine Catheter - Catheter Urine Culture - Preliminary Yeast, not Callie albicans Physical Exam Narrative Seen and examined. Patient is more awake and alert. Talking coherent. He wants to go home but is pending pre-CERT to go to long-term Earlier, the patient admitted with decreased level of alertness, disorientation and visual hallucinations. History of Parkinson disease and dementia. Physical exam General: Awake, oriented x3, Cooperative. BMI 42.4 kg/m?, morbid obesity HEENT: Atraumatic, PERRLA, EOMI, Normocephalic. Oral: Oral mucosa dry. Neck: Supple, No JVD, Negative Carotid Bruits Chest wall/Lungs: Air entry diminished in bilateral lung bases. No crepitation/rhonchi Cardiovascular: Regular rate and rhythm, Normal S1,S2, No M/G/R Abdomen: Bowel Sounds Present, Soft, Non Tender, Non-Distended : No dysuria. No renal angle tenderness. No suprapubic tenderness. Extremities: No edema, Capillary Refill Less than 3 Seconds Skin: No rashes, No breakdown Musculoskeletal: No Tenderness to Palpation of Joints or Extremities. Needs 2 people assist. Neurological: Cranial nerves II-XII grossly intact, DTR 2+/4. No acute focal neurological deficit. Psych/Mental Status: Flat affect, retrograde amnesia Assessment & Plan Assessment/Plan (1) Acute encephalopathy: (2) UTI (urinary tract infection): PLAN: Plan The patient is a 74 y/o M admitted with altered level of consciousness/change inmental status. As per patient's he was seeing animals and people not in the room. Denies fever chills cough cold or shortness of breath or focal symptoms of infection history of Parkinson disease frequent UTI and dementia in the past #1. Debility, Adult FTT secondary to Acute Encephalopathy, abnormal UA: Patientis being admitted to MedSur floor. He denies burning pain/acute contact symptoms but has dementia. positive of WBC 25?50 cells, RBC 10-25 cells, LE 500, nitrite negative. Empirically on IV ceftriaxone. Patient was gently hydrated. PT and OT ordered. 01/08: Patient mental status improved after decreasing the antipsychotic medications. He is doing good on Seroquel 50 mg daytime and trazodone 100 mg atnight. Besides that he is also on gabapentin 400 mg 3 times daily, decreased to300 mg 3 times daily. Aricept 10 mg at bedtime. Duloxetine 60 mg daily. Tramadol 50 mg 3 times daily. Urine culture prelim shows yeast 25,000-50 colonies per mL. IV antibiotics ceftriaxone discontinued 01/09: Mental status much improved. Continue same doses. #2. Chronic Kidney Disease Stage IIIB: Admission BUN/Cr /1.62, GFR 44, baseline renal function primarily 1.4-1.9, most recently 10/19/2024 creatinine 1.60, Repeat creatinine 1.72. Continue IV fluid 01/09: Monitor kidney function. #3. Chronic thrombocytopenia, unclear exact etiology: Admission platelet 122, on baseline about 120,000. #4. Anxiety and Depression/Mood disorder: continue patient home Seroquel, trazodone, duloxetine home regimen with hold for sedation as needed. #5. IDDM with chronic neuropathy: hold oral home regimen, continue home insulin regimen, ADA diet, accu checks w/ ISS, cautiously continue home gabapentin regimen but hold for sedation as needed. #6. BPH with obstructive pathology: Will continue patient on Flomax regimen, monitor for obstruction. #7. Hypertension: Continue home regimen including lisinopril with hold parameters as needed, PRN hydralazine. #8. Parkinson disease with associated dementia unclear severity with visual hallucination: Advised follow-up with neurologist as an outpatient. PT and OT and social work associate. #9. Hypothyroidism: continue patient on levothyroxine regimen. #10. Hyperlipidemia: continue patient home ezetimibe. Not on a statin #11. Morbid Obesity: Weight loss and lifestyle changes encouraged. #12. Gout: Will continue patient on allopurinol regimen. #13. DVT prophylaxis: Lovenox. #14. CODE status: Patient FRANK is his who is present and living will is currently in place. Discussed CODE status at length including difference betweenFULL code, DNR-CCA and DNR-CC status. Following discussions about the differences in these status, requested DNR-CCA and following further discussionsand examples with intubation allowance. Microbiology Past 72 Hours 01/06/25 19:55 Urine Catheter - Catheter Urine Culture - Preliminary Yeast Laboratory Results 01/07/25 16:14: POC Glucose 163 H 01/07/25 21:25: POC Glucose 125 H 01/08/25 05:16: POC Glucose 224 H 01/08/25 11:28: POC Glucose 206 H Charges/Coding Visit Charges Inpatient E&M: 65961 Subs Hosp L2 01/09/25 3882 <Electronically signed by Mao Muse MD> Cosigner Signature (if applicable): CC: ~ Signed [facility] Work Phone: 1(776) 431-231009-08-2025 Progress note [facility] Medical Records Department [address] [place] [address] Progress Note - Hospitalist 01/09/25 1516 MR#: [id number] Acct: [id number] Name: CHARLI PORRAS Rep #:[id number] : 1950 74 From: Mao Justin PCP: ABHISHEK ST Status:ADM IN Location: [facility] [id number] Reason for Visit Chief Complaint: Weakness, confusion, debility. Objective Data Objective Data Vital Signs: Vital Signs Temp Pulse Resp BP Pulse Ox O2 Del Method 97.9 F 96 18 128/61 H 100 Room Air 01/09/25 14:10 01/09/25 14:10 01/09/25 14:10 01/09/25 14:10 01/09/25 14:10 01/09/25 14:45 Oxygen Delivery Method Room Air Weight: 288 lb 5.834 oz Body Mass Index (BMI) 42.7 Intake & Output: Intake and Output for Last 24 Hours 01/07/25 01/08/25 01/09/25 23:59 23:59 23:59 Intake Total 1050 / 1050 1240 / 1240 240 / 240 Output Total 950 / 950 1000 / 1000 500 / 500 Balance 100 / 100 240 / 240 -260 / -260 Lab / Micro Data 01/07/25 06:37 01/07/25 06:37 Labs: Laboratory Results - last 24 hr 01/08/25 16:21: POC Glucose 174 H 01/08/25 20:41: POC Glucose 225 H 01/09/25 05:07: POC Glucose 144 H 01/09/25 10:48: POC Glucose 206 H Micro: Microbiology 01/06/25 19:55 Urine Catheter - Catheter Urine Culture - Preliminary Yeast, not Callie albicans Physical Exam Narrative Seen and examined. Patient is more awake and alert. Talking coherent. He wants to go home but is pending pre-CERT to go to long-term Earlier, the patient admitted with decreased level of alertness, disorientation and visual hallucinations. History of Parkinson disease and dementia. Physical exam General: Awake, oriented x3, Cooperative. BMI 42.4 kg/m?, morbid obesity HEENT: Atraumatic, PERRLA, EOMI, Normocephalic. Oral: Oral mucosa dry. Neck: Supple, No JVD, Negative Carotid Bruits Chest wall/Lungs: Air entry diminished in bilateral lung bases. No crepitation/rhonchi Cardiovascular: Regular rate and rhythm, Normal S1,S2, No M/G/R Abdomen: Bowel Sounds Present, Soft, Non Tender, Non-Distended : No dysuria. No renal angle tenderness. No suprapubic tenderness. Extremities: No edema, Capillary Refill Less than 3 Seconds Skin: No rashes, No breakdown Musculoskeletal: No Tenderness to Palpation of Joints or Extremities. Needs 2 people assist. Neurological: Cranial nerves II-XII grossly intact, DTR 2+/4. No acute focal neurological deficit. Psych/Mental Status: Flat affect, retrograde amnesia Assessment & Plan Assessment/Plan (1) Acute encephalopathy: (2) UTI (urinary tract infection): PLAN: Plan The patient is a 74 y/o M admitted with altered level of consciousness/change inmental status. As per patient's he was seeing animals and people not in the room. Denies fever chills cough cold or shortness of breath or focal symptoms of infection history of Parkinson disease frequent UTI and dementia in the past #1. Debility, Adult FTT secondary to Acute Encephalopathy, abnormal UA: Patientis being admitted toMedSurg floor. He denies burning pain/acute contact symptoms but has dementia. positive of WBC 25?50 cells, RBC 10-25 cells, LE 500, nitrite negative. Empirically on IV ceftriaxone. Patient was gently hydrated. PT and OT ordered. 01/08: Patient mental status improved after decreasing the antipsychotic medications. He is doing good on Seroquel 50 mg daytime and trazodone 100 mg atnight. Besides that he is also on gabapentin 400 mg 3 times daily, decreased to300 mg 3 times daily. Aricept 10 mg at bedtime. Duloxetine 60 mg daily. Tramadol 50 mg 3 times daily. Urine culture prelim shows yeast 25,000-50 colonies per mL. IV antibiotics ceftriaxone discontinued 01/09: Mental status much improved. Continue same doses. #2. Chronic Kidney Disease Stage IIIB: Admission BUN/Cr 21/1.62, GFR 44, baseline renal function primarily 1.4-1.9, most recently 10/19/2024 creatinine 1.60, Repeat creatinine 1.72. Continue IV fluid 01/09: Monitor kidney function. #3. Chronic thrombocytopenia, unclear exact etiology: Admission platelet 122, on baseline about 120,000. #4. Anxiety and Depression/Mood disorder: continue patient home Seroquel, trazodone, duloxetine home regimen with hold for sedation as needed. #5. IDDM with chronic neuropathy: hold oral home regimen, continue home insulin regimen, ADA diet, accu checks w/ ISS, cautiously continue home gabapentin regimen but hold for sedation as needed. #6. BPH with obstructive pathology: Will continue patient on Flomax regimen, monitor for obstruction. #7. Hypertension: Continue home regimen including lisinopril with hold parameters as needed, PRN hydralazine. #8. Parkinson disease with associated dementia unclear severity with visual hallucination: Advised follow-up with neurologist as an outpatient. PT and OT and social work associate. #9. Hypothyroidism: continue patient on levothyroxine regimen. #10. Hyperlipidemia: continue patient home ezetimibe. Not on a statin #11. Morbid Obesity: Weight loss and lifestyle changes encouraged. #12. Gout: Will continue patient on allopurinol regimen. #13. DVT prophylaxis: Lovenox. #14. CODE status: Patient FRANK is his who is present and living will is currently in place. Discussed CODE status at length including difference betweenFULL code, DNR-CCA and DNR-CC status. Following discussions about the differences in these status, requested DNR-CCA and following further dis cussionsand examples with intubation allowance. Microbiology Past 72 Hours 01/06/25 19:55 Urine Catheter - Catheter Urine Culture - Preliminary Yeast Laboratory Results 01/07/25 16:14: POC Glucose 163 H 01/07/25 21:25: POC Glucose 125 H 01/08/25 05:16: POC Glucose 224 H 01/08/25 11:28: POC Glucose 206 H Charges/Coding Visit Charges Inpatient E&M: 95698 Subs Hosp L2 01/09/25 1514 Cosigner Signature (if applicable): CC: ~ Signed [facility]09-07-2025 Progress note Author Mao Muse [facility] Note Date/Time January 08, 2025 2:07pm [facility] Medical Records Department [address] [place] [address] Progress Note - Hospitalist 01/08/25 1401 MR#: [id number] Acct: [id number] Name: CHARLI PORRAS Rep #:[id number] : 1950 74 From: Mao Justin PCP: ABHISHEK ST Status:ADM IN Location: [place] [address] Reason for Visit Chief Complaint: Weakness, confusion, debility. Objective Data Objective Data Vital Signs: Vital Signs Temp Pulse Resp BP Pulse Ox O2 Del Method 97.9 F 83 18 141/81 H 96 Room Air 01/08/25 09:07 01/08/25 09:07 01/08/25 09:07 01/08/25 09:07 01/08/25 09:07 01/08/25 09:09 Oxygen Delivery Method Room Air Weight: 286 lb 13.142 oz Body Mass Index (BMI) 42.5 Intake & Output: Intake and Output for Last 24 Hours 01/06/25 01/07/25 01/08/25 23:59 23:59 23:59 Intake Total 1050 / 1050 1050 / 1050 1240 / 1240 Output Total 950 / 950 1000 / 1000 Balance 1050 / 1050 100 / 100 240 / 240 Lab / Micro Data 01/07/25 06:37 01/07/25 06:37 Labs: Laboratory Results - last 24 hr 01/07/25 16:14: POC Glucose 163 H 01/07/25 21:25: POC Glucose 125 H 01/08/25 05:16: POC Glucose 224 H 01/08/25 11:28: POC Glucose 206 H Micro: Microbiology 01/06/25 19:55 Urine Catheter - Catheter Urine Culture - Preliminary Yeast Physical Exam Narrative Seen and examined. Patient is more awake and alert. Talking coherent. He said he wants to go homeprobably tomorrow. Earlier, the patient admitted with decreased level of alertness, disorientation and visual hallucinations. History of Parkinson disease and dementia. Physical exam General: Awake oriented x3, Cooperative. BMI 42.4 kg/m?, morbid obesity HEENT: Atraumatic, PERRLA, EOMI, Normocephalic. Oral: Oral mucosa dry. Neck: Supple, No JVD, Negative Carotid Bruits Chest wall/Lungs: Air entry diminished in bilateral lung bases. No crepitation/rhonchi Cardiovascular: Regular rate and rhythm, Normal S1,S2, No M/G/R Abdomen: Bowel Sounds Present, Soft, Non Tender, Non-Distended : No dysuria. No renal angle tenderness. No suprapubic tenderness. Extremities: No edema, Capillary Refill Less than 3 Seconds Skin: No rashes, No breakdown Musculoskeletal: No Tenderness to Palpation of Joints or Extremities Neurological: Cranial nerves II-XII grossly intact, DTR 2+/4. No acute focal neurological deficit. Psych/Mental Status: Flat affect, retrograde amnesia Assessment & Plan Assessment/Plan (1) Acute encephalopathy: (2) UTI (urinary tract infection): PLAN: Plan The patient is a 74 y/o M admitted with altered level of consciousness/change inmental status. As per patient's he was seeing animals and people not in the room. Denies fever chills cough cold or shortness of breath or focal symptoms of infection history of Parkinson disease frequent UTI and dementia in the past #1. Debility, Adult FTT secondary to Acute Encephalopathy, abnormal UA: Patientis being admitted to MedSurg floor. He denies burning pain/acute contact symptoms but has dementia. positive of WBC 25?50 cells, RBC 10-25 cells, LE 500, nitrite negative. Empirically on IV ceftriaxone. Patient was gently hydrated. PT and OT ordered. 01/08: Patient mental status improved after decreasing the antipsychotic medications. He is doing good on Seroquel 50 mg daytime and trazodone 100 mg atnight. Besides that he is also on gabapentin 400 mg 3 times daily, decreased to300 mg 3 times daily. Aricept 10 mg at bedtime. Duloxetine 60 mg daily. Tramadol 50 mg 3 times daily. Urine culture prelim shows yeast 25,000-50 colonies per mL. IV antibiotics ceftriaxone discontinued #2. Chronic Kidney Disease Stage IIIB: Admission BUN/Cr 21/1.62, GFR 44, baseline renal function primarily 1.4-1.9, most recently 10/19/2024 creatinine 1.60, Repeat creatinine 1.72. Continue IV fluid #3. Chronic thrombocytopenia, unclear exact etiology: Admission platelet 122, on baseline about 120,000. #4. Anxiety and Depression/Mood disorder: continue patient home Seroquel, trazodone, duloxetine home regimen with hold for sedation as needed. #5. IDDM with chronic neuropathy: hold oral home regimen, continue home insulin regimen, ADA diet, accu checks w/ ISS, cautiously continue home gabapentin regimen but hold for sedation as needed. #6. BPH with obstructive pathology: Will continue patient on Flomax regimen, monitor for obstruction. #7. Hypertension: Continue home regimen including lisinopril with hold parameters as needed, PRN hydralazine. #8. Parkinson disease with associated dementia unclear severity with visual hallucination: Advised follow-up with neurologist as an outpatient. PT and OT and social work associate. #9. Hypothyroidism: continue patient on levothyroxine regimen. #10. Hyperlipidemia: continue patient home ezetimibe. Not on a statin #11. Morbid Obesity: Weight loss and lifestyle changes encouraged. #12. Gout: Will continue patient on allopurinol regimen. #13. DVT prophylaxis: Lovenox. #14. CODE status: Patient FRANK is his who is present and living will is currently in place. Discussed CODE status at length including difference betweenFULL code, DNR-CCA and DNR-CC status. Following discussions about the differences in these status, requested DNR-CCA and following further discussionsand examples with intubation allowance. Microbiology Past 72 Hours 01/06/25 19:55 Urine Catheter - Catheter Urine Culture - Preliminary Yeast Laboratory Results 01/07/25 16:14: POC Glucose 163 H 01/07/25 21:25: POC Glucose 125 H 01/08/25 05:16: POC Glucose 224 H 01/08/25 11:28: POC Glucose 206 H Charges/Coding Visit Charges Inpatient E&M: 74573 Subs Hosp L2 01/08/25 1407 <Electronically signed by Mao Muse MD> Cosigner Signature (if applicable): CC: ~ Signed [facility] Work Phone: 1(380) 533-354209-07-2025 Progress note [facility] Medical Records Department [address] [place] [address] Progress Note - Hospitalist 01/08/25 1401 MR#: [id number] Acct: [id number] Name: CHARLI PORRAS Rep #:[id number] : 1950 74 From: Mao Justin PCP: ABHISHEK ST Status:ADM IN Location: [facility] [id number] Reason for Visit Chief Complaint: Weakness, confusion, debility. Objective Data Objective Data Vital Signs: Vital Signs Temp Pulse Resp BP Pulse Ox O2 Del Method 97.9 F 83 18 141/81 H 96 Room Air 01/08/25 09:07 01/08/25 09:07 01/08/25 09:07 01/08/25 09:07 01/08/25 09:07 01/08/25 09:09 Oxygen Delivery Method Room Air Weight: 286 lb 13.142 oz Body Mass Index (BMI) 42.5 Intake & Output: Intake and Output for Last 24 Hours 01/06/25 01/07/25 01/08/25 23:59 23:59 23:59 Intake Total 1050 / 1050 1050 / 1050 1240 / 1240 Output Total 950 / 950 1000 / 1000 Balance 1050 / 1050 100 / 100 240 / 240 Lab / Micro Data 01/07/25 06:37 01/07/25 06:37 Labs: Laboratory Results - last 24 hr 01/07/25 16:14: POC Glucose 163 H 01/07/25 21:25: POC Glucose 125 H 01/08/25 05:16: POC Glucose 224 H 01/08/25 11:28: POC Glucose 206 H Micro: Microbiology 01/06/25 19:55 Urine Catheter - Catheter Urine Culture - Preliminary Yeast Physical Exam Narrative Seen and examined. Patient is more awake and alert. Talking coherent. He said he wants to go homeprobably tomorrow. Earlier, the patient admitted with decreased level of alertness, disorientation and visual hallucinations. History of Parkinson disease and dementia. Physical exam General: Awake oriented x3, Cooperative. BMI 42.4 kg/m?, morbid obesity HEENT: Atraumatic, PERRLA, EOMI, Normocephalic. Oral: Oral mucosa dry. Neck: Supple, No JVD, Negative Carotid Bruits Chest wall/Lungs: Air entry diminished in bilateral lung bases. No crepitation/rhonchi Cardiovascular: Regular rate and rhythm, Normal S1,S2, No M/G/R Abdomen: Bowel Sounds Present, Soft, Non Tender, Non-Distended : No dysuria. No renal angle tenderness. No suprapubic tenderness. Extremities: No edema, Capillary Refill Less than 3 Seconds Skin: No rashes, No breakdown Musculoskeletal: No Tenderness to Palpation of Joints or Extremities Neurological: Cranial nerves II-XII grossly intact, DTR 2+/4. No acute focal neurological deficit. Psych/Mental Status: Flat affect, retrograde amnesia Assessment & Plan Assessment/Plan (1) Acute encephalopathy: (2) UTI (urinary tract infection): PLAN: Plan The patient is a 74 y/o M admitted with altered level of consciousness/change inmental status. As per patient's he was seeing animals and people not in the room. Denies fever chills cough cold or shortness of breath or focal symptoms of infection history of Parkinson disease frequent UTI and dementia in the past #1. Debility, Adult FTT secondary to Acute Encephalopathy, abnormal UA: Patientis being admitted toMedSurg floor. He denies burning pain/acute contact symptoms but has dementia. positive of WBC 25?50 cells, RBC 10-25 cells, LE 500, nitrite negative. Empirically on IV ceftriaxone. Patient was gently hydrated. PT and OT ordered. 01/08: Patient mental status improved after decreasing the antipsychotic medications. He is doing good on Seroquel 50 mg daytime and trazodone 100 mg atnight. Besides that he is also on gabapentin 400 mg 3 times daily, decreased to300 mg 3 times daily. Aricept 10 mg at bedtime. Duloxetine 60 mg daily. Tramadol 50 mg 3 times daily. Urine culture prelim shows yeast 25,000-50 colonies per mL. IV antibiotics ceftriaxone discontinued #2. Chronic Kidney Disease Stage IIIB: Admission BUN/Cr 21/1.62, GFR 44, baseline renal function primarily 1.4-1.9, most recently 10/19/2024 creatinine 1.60, Repeat creatinine 1.72. Continue IV fluid #3. Chronic thrombocytopenia, unclear exact etiology: Admission platelet 122, on baseline about 120,000. #4. Anxiety and Depression/Mood disorder: continue patient home Seroquel, trazodone, duloxetine home regimen with hold for sedation as needed. #5. IDDM with chronic neuropathy: hold oral home regimen, continue home insulin regimen, ADA diet, accu checks w/ ISS, cautiously continue home gabapentin regimen but hold for sedation as needed. #6. BPH with obstructive pathology: Will continue patient on Flomax regimen, monitor for obstruction. #7. Hypertension: Continue home regimen including lisinopril with hold parameters as needed, PRN hydralazine. #8. Parkinson disease with associated dementia unclear severity with visual hallucination: Advised follow-up with neurologist as an outpatient. PT and OT and social work associate. #9. Hypothyroidism: continue patient on levothyroxine regimen. #10. Hyperlipidemia: continue patient home ezetimibe. Not on a statin #11. Morbid Obesity: Weight loss and lifestyle changes encouraged. #12. Gout: Will continue patient on allopurinol regimen. #13. DVT prophylaxis: Lovenox. #14. CODE status: Patient FRANK is his who is present and living will is currently in place. Discussed CODE status at length including difference betweenFULL code, DNR-CCA and DNR-CC status. Following discussions about the differences in these status, requested DNR-CCA and following further dis cussionsand examples with intubation allowance. Microbiology Past 72 Hours 01/06/25 19:55 Urine Catheter - Catheter Urine Culture - Preliminary Yeast Laboratory Results 01/07/25 16:14: POC Glucose 163 H 01/07/25 21:25: POC Glucose 125 H 01/08/25 05:16: POC Glucose 224 H 01/08/25 11:28: POC Glucose 206 H Charges/Coding Visit Charges Inpatient E&M: 42863 Subs Hosp L2 01/08/25 1407 Cosigner Signature (if applicable): CC: ~ Signed [facility]09-06-2025 Progress note Author Mao Muse [facility] Note Date/Time January 07, 2025 2:28pm [facility] Medical Records Department [address] [place] [id number] Progress Note - Hospitalist 01/07/25 1110 MR#: [id number] Acct: [id number] Name: CHARLI PORRAS Rep #:[id number] : 1950 74 From: Mao Justin PCP: ABHISHEK ST Status:ADM IN Location: [facility] [facility] [id number] Reason for Visit Chief Complaint: Weakness, confusion, debility. Objective Data Objective Data Vital Signs: Vital Signs Temp Pulse Resp BP Pulse Ox O2 Del Method 97.4 F L 72 17 111/67 95 Room Air 01/07/25 08:24 01/07/25 08:24 01/07/25 08:24 01/07/25 08:24 01/07/25 09:17 01/07/25 09:17 Oxygen Delivery Method Room Air Weight: 286 lb 14.4 oz Body Mass Index (BMI) 42.3 Intake & Output: Intake and Output for Last 24 Hours 01/05/25 01/06/25 01/07/25 23:59 23:59 23:59 Intake Total 1050 / 1050 Output Total 200 / 200 Balance 1050 / 1050 -200 / -200 Lab / Micro Data 01/07/25 06:37 01/07/25 06:37 Labs: Laboratory Results - last 24 hr 01/06/25 17:45: Ammonia 12.8 L 01/06/25 18:31: WBC 8.1, RBC 4.62, Hgb 14.1, Hct 42.2, MCV 91.3, MCH 30.5, MCHC 33.4, RDW Std Deviation 49.8 H, RDW Coeff of Veronica 15.0 H, Plt Count 122 L, MPV 9.6, Immature Gran % (Auto) 0.900, Neut % (Auto) 69.5, Lymph % (Auto) 20.3, Wake% (Auto) 5.7, Eos % (Auto) 2.9, Baso % (Auto) 0.7, Absolute Neuts (auto) 5.6, Absolute Lymphs (auto) 1.64, Nucleated RBC % 0, Sodium 135, Potassium 4.4, Chloride 100, Carbon Dioxide 23.6, Anion Gap 12, BUN 21 H, Creatinine 1.62 H, Estim Creat Clear Calc 53.33, Est GFR (MDRD) Non-Af 44 L, BUN/Creatinine Ratio 12.9, Glucose 156 H, Calcium 9.6, Total Bilirubin 0.56, AST 20, ALT 18, AlkalinePhosphatase 84, Total Protein 7.8, Albumin 3.8, Globulin 4.0, Albumin/Globulin Ratio 1.0 01/06/25 19:55: Urine Color Straw, Urine Clarity Cloudy, Urine pH 6.0, Ur Specific [place] 1.015, Urine Protein 30 H, Urine Glucose (UA) 1000 H, Urine Ketones Negative, Urine Occult Blood 250 H, Urine Nitrite Negative, Urine Bilirubin Negative, Urine Urobilinogen Normal, Ur Leukocyte Esterase 500 H, Urine RBC 10-25 SEEN, Urine WBC 25-50 SEEN, Ur Squamous Epith Cells 0-5 SEEN, Urine Bacteria 1+, Urine Mucus 0 SEEN, Urine Yeast 3+ 01/07/25 01:03: POC Glucose 135 H 01/07/25 06:22: POC Glucose 132 H 01/07/25 06:37: WBC 7.5, RBC 4.00 L, Hgb 12.2 L, Hct 36.7 L, MCV 91.8, MCH 30.5,MCHC 33.2, RDW Std Deviation 51.2 H, RDW Coeff of Veronica 15.0 H, Plt Count 112 L, MPV 9.0, Immature Gran % (Auto) 0.700, Neut % (Auto) 61.7, Lymph % (Auto) 25.2, Wake % (Auto) 8.5, Eos % (Auto) 3.2, Baso % (Auto) 0.7, Absolute Neuts (auto) 4.7, Absolute Lymphs (auto) 1.90, Nucleated RBC % 0, Sodium 135, Potassium 4.1, Chloride 104, Carbon Dioxide 20.6 L, Anion Gap 11, BUN 21 H, Creatinine 1.72 H, Estim Creat Clear Calc 49.59 L, Est GFR (MDRD) Non-Af 41 L, BUN/Creatinine Ratio12.3, Glucose 118 H, Calcium 8.8, Total Bilirubin 0.59, AST 16, ALT 12, AlkalinePhosphatase 72, Total Protein 6.9, Albumin 3.5, Globulin 3.4, Albumin/Globulin Ratio 1.0 Radiography Diagnostic Testing: Radiology Impression Brain CT 01/06/25 19:15 IMPRESSION: 1. No intracranial hemorrhage. No mass effect or midline shift. 2. Chronic involutional and ischemic gliotic white matter changes. Reading Location: [facility] Chest X-Ray 01/06/25 19:20 IMPRESSION: No Acute Findings. Reading Location: [facility] Physical Exam Narrative Patient was admitted with decreased level of alertness, disorientation and visual hallucinations. History of Parkinson disease and dementia. Patient was sleeping and then woke up. Physical exam General: Awake oriented x2, Cooperative. BMI 42.4 kg/m?, morbid obesity HEENT: Atraumatic, PERRLA, EOMI, Normocephalic. Oral: Oral mucosa dry. Neck: Supple, No JVD, Negative Carotid Bruits Chest wall/Lungs: Air entry diminished in bilateral lung bases. No crepitation/rhonchi Cardiovascular: Regular rate and rhythm, Normal S1,S2, No M/G/R Abdomen: Bowel Sounds Present, Soft, Non Tender, Non-Distended : No dysuria. No renal angle tenderness. No suprapubic tenderness. Extremities: No edema, Capillary Refill Less than 3 Seconds Skin: No rashes, No breakdown Musculoskeletal: No Tenderness to Palpation of Joints or Extremities Neurological: Cranial nerves II-XII grossly intact, DTR 2+/4. No acute focal neurological deficit. Psych/Mental Status: Flat affect, retrograde amnesia Assessment & Plan Assessment/Plan (1) Acute encephalopathy: (2) UTI (urinary tract infection): PLAN: Plan The patient is a 74 y/o M admitted with altered level of consciousness/change inmental status. As per patient's he was seeing animals and people not in the room. Denies fever chills cough cold or shortness of breath or focal symptoms of infection history of Parkinson disease frequent UTI and dementia in the past #1. Debility, Adult FTT secondary to Acute Encephalopathy, abnormal UA: Patientis being admitted to MedSurg floor. He denies burning pain/acute contact symptoms but has dementia. positive of WBC 25?50 cells, RBC 10-25 cells, LE 500, nitrite negative. Empirically on IV ceftriaxone. Patient was gently hydrated. PT and OT ordered. #2. Chronic Kidney Disease Stage IIIB: Admission BUN/Cr 21/1.62, GFR 44, baseline renal function primarily 1.4-1.9, most recently 10/19/2024 creatinine 1.60, Repeat creatinine 1.72. Continue IV fluid #3. Chronic thrombocytopenia, unclear exact etiology: Admission platelet 122, on baseline about 120,000. #4. Anxiety and Depression/Mood disorder: continue patient home Seroquel, trazodone, duloxetine home regimen with hold for sedation as needed. #5. IDDM with chronic neuropathy: hold oral home regimen, continue home insulin regimen, ADA diet, accu checks w/ ISS, cautiously continue home gabapentin regimen but hold for sedation as needed. #6. BPH with obstructive pathology: Will continue patient on Flomax regimen, monitor for obstruction. #7. Hypertension: Continue home regimen including lisinopril with hold parameters as needed, PRN hydralazine. #8. Parkinson disease with associated dementia unclear severity with visual hallucination: Advised follow-up with neurologist as an outpatient. PT and OT and social work associate. #9. Hypothyroidism: continue patient on levothyroxine regimen. #10. Hyperlipidemia: continue patient home ezetimibe. Not on a statin #11. Morbid Obesity: Weight loss and lifestyle changes encouraged. #12. Gout: Will continue patient on allopurinol regimen. #13. DVT prophylaxis: Lovenox. #14. CODE status: Patient FRANK is his who is present and living will is currently in place. Discussed CODE status at length including difference betweenFULL code, DNR-CCA and DNR-CC status. Following discussions about the differences in these status, requested DNR-CCA and following further discussionsand examples with intubation allowance. Laboratory Results 01/06/25 17:45: Ammonia 12.8 L 01/06/25 18:31: WBC 8.1, RBC 4.62, Hgb 14.1, Hct 42.2, MCV 91.3, MCH 30.5, MCHC 33.4, RDW Std Deviation 49.8 H, RDW Coeff of Veronica 15.0 H, Plt Count 122 L, MPV 9.6, Immature Gran % (Auto) 0.900, Neut % (Auto) 69.5, Lymph % (Auto) 20.3, Wake% (Auto) 5.7, Eos % (Auto) 2.9, Baso % (Auto) 0.7, Absolute Neuts (auto) 5.6, Absolute Lymphs (auto) 1.64, Nucleated RBC % 0, Sodium 135, Potassium 4.4, Chloride 100, Carbon Dioxide 23.6, Anion Gap 12, BUN 21 H, Creatinine 1.62 H, Estim Creat Clear Calc 53.33, Est GFR (MDRD) Non-Af 44 L, BUN/Creatinine Ratio 12.9, Glucose 156 H, Calcium 9.6, Total Bilirubin 0.56, AST 20, ALT 18, AlkalinePhosphatase 84, Total Protein 7.8, Albumin 3.8, Globulin 4.0, Albumin/Globulin Ratio 1.0 01/06/25 19:55: Urine Color Straw, Urine Clarity Cloudy, Urine pH 6.0, Ur Specific [place] 1.015, Urine Protein 30 H, Urine Glucose (UA) 1000 H, Urine Ketones Negative, Urine Occult Blood 250 H, Urine Nitrite Negative, Urine Bilirubin Negative, Urine Urobilinogen Normal, Ur Leukocyte Esterase 500 H, Urine RBC 10-25 SEEN, Urine WBC 25-50 SEEN, Ur Squamous Epith Cells 0-5 SEEN, Urine Bacteria 1+, Urine Mucus 0 SEEN, Urine Yeast 3+ 01/07/25 01:03: POC Glucose 135 H 01/07/25 06:22: POC Glucose 132 H 01/07/25 06:37: WBC 7.5, RBC 4.00 L, Hgb 12.2 L, Hct 36.7 L, MCV 91.8, MCH 30.5,MCHC 33.2, RDW Std Deviation 51.2 H, RDW Coeff of Veronica 15.0 H, Plt Count 112 L, MPV 9.0, Immature Gran % (Auto) 0.700, Neut % (Auto) 61.7, Lymph % (Auto) 25.2, Wake % (Auto) 8.5, Eos % (Auto) 3.2, Baso % (Auto) 0.7, Absolute Neuts (auto) 4.7, Absolute Lymphs (auto) 1.90, Nucleated RBC % 0, Sodium 135, Potassium 4.1, Chloride 104, Carbon Dioxide 20.6 L, Anion Gap 11, BUN 21 H, Creatinine 1.72 H, Estim Creat Clear Calc 49.59 L, Est GFR (MDRD) Non-Af 41 L, BUN/Creatinine Ratio12.3, Glucose 118 H, Calcium 8.8, Total Bilirubin 0.59, AST 16, ALT 12, AlkalinePhosphatase 72, Total Protein 6.9, Albumin 3.5, Globulin 3.4, Albumin/Globulin Ratio 1.0 01/07/25 11:53: POC Glucose 113 H Charges/Coding Visit Charges Inpatient E&M: 50452 Subs Hosp L2 01/07/25 7442 <Electronically signed by Mao Muse MD> Cosigner Signature (if applicable): CC: ~ Signed [facility] Work Phone: [phone] Progress note [facility] Medical Records Department [address] [place] [address] Progress Note - Hospitalist 01/07/25 1110 MR#: [id number] Acct: [id number] Name: CHARLI PORRAS Rep #:[id number] : 1950 74 From: Mao Justin PCP: ABHISHEK ST Status:ADM IN Location: [facility] [place] [id number] Reason for Visit Chief Complaint: Weakness, confusion, debility. Objective Data Objective Data Vital Signs: Vital Signs Temp Pulse Resp BP Pulse Ox O2 Del Method 97.4 F L 72 17 111/67 95 Room Air 01/07/25 08:24 01/07/25 08:24 01/07/25 08:24 01/07/25 08:24 01/07/25 09:17 01/07/25 09:17 Oxygen Delivery Method Room Air Weight: 286 lb 14.4 oz Body Mass Index (BMI) 42.3 Intake & Output: Intake and Output for Last 24 Hours 01/05/25 01/06/25 01/07/25 23:59 23:59 23:59 Intake Total 1050 / 1050 Output Total 200 / 200 Balance 1050 / 1050 -200 / -200 Lab / Micro Data 01/07/25 06:37 01/07/25 06:37 Labs: Laboratory Results - last 24 hr 01/06/25 17:45: Ammonia 12.8 L 01/06/25 18:31: WBC 8.1, RBC 4.62, Hgb 14.1, Hct 42.2, MCV 91.3, MCH 30.5, MCHC 33.4, RDW Std Deviation 49.8 H, RDW Coeff of Veronica 15.0 H, Plt Count 122 L, MPV 9.6, Immature Gran % (Auto) 0.900, Neut %(Auto) 69.5, Lymph % (Auto) 20.3, Wake% (Auto) 5.7, Eos % (Auto) 2.9, Baso % (Auto) 0.7, Absolute Neuts (auto) 5.6, Absolute Lymphs (auto) 1.64, Nucleated RBC % 0, Sodium 135, Potassium 4.4, [id number], Carbon Dioxide 23.6, Anion Gap 12, BUN 21 H, Creatinine 1.62 H, Estim Creat Clear Calc 53.33, Est GFR (MDRD) Non-Af 44 L, BUN/Creatinine Ratio 12.9, Glucose 156 H, Calcium 9.6, Total Bilirubin 0.56, AST 20, ALT 18, AlkalinePhosphatase 84, Total Protein 7.8, Albumin 3.8, Globulin 4.0, Albumin/Gl obulin Ratio 1.0 01/06/25 19:55: Urine Color Straw, Urine Clarity Cloudy, Urine pH 6.0, Ur Specific [place] 1.015, Urine Protein 30 H, Urine Glucose (UA) 1000 H, Urine Ketones Negative, Urine Occult Blood 250 H, Urine Nitrite Negative, Urine Bilirubin Negative, Urine Urobilinogen Normal, Ur Leukocyte Esterase 500 H, Urine RBC 10-25 SEEN, Urine WBC 25-50 SEEN, Ur Squamous Epith Cells 0-5 SEEN, Urine Bacteria 1+, Urine Mucus 0 SEEN, Urine Yeast 3+ 01/07/25 01:03: POC Glucose 135 H 01/07/25 06:22: POC Glucose 132 H 01/07/25 06:37: WBC 7.5, RBC 4.00 L, Hgb 12.2 L, Hct 36.7 L, MCV 91.8, MCH 30.5,MCHC 33.2, RDW Std Deviation 51.2 H, RDW Coeff of Veronica 15.0 H, Plt Count 112 L, MPV 9.0, Immature Gran % (Auto) 0.700, Neut % (Auto) 61.7, Lymph % (Auto) 25.2, Wake % (Auto) 8.5, Eos % (Auto) 3.2, Baso % (Auto) 0.7, Absolute Neuts (auto) 4.7, Absolute Lymphs (auto) 1.90, Nucleated RBC % 0, Sodium 135, Potassium 4.1, Chloride 104, Carbon Dioxide 20.6 L, Anion Gap 11, BUN 21 H, Creatinine 1.72 H, Estim Creat Clear Calc49.59 L, Est GFR (MDRD) Non-Af 41 L, BUN/Creatinine Ratio12.3, Glucose 118 H, Calcium 8.8, Total Bilirubin 0.59, AST 16, ALT 12, AlkalinePhosphatase 72, Total Protein 6.9, Albumin 3.5, Globulin 3.4, Albumin/Globulin Ratio 1.0 Radiography Diagnostic Testing: Radiology Impression Brain CT 01/06/25 19:15 IMPRESSION: 1. No intracranial hemorrhage. No mass effect or midline shift. 2. Chronic involutional and ischemic gliotic white matter changes. Reading Location: [facility] Chest X-Ray 01/06/25 19:20 IMPRESSION: No Acute Findings. Reading Location: [facility] Physical Exam Narrative Patient was admitted with decreased level of alertness, disorientation and visual hallucinations. History of Parkinson disease and dementia. Patient was sleeping and then woke up. Physical exam General: Awake oriented x2, Cooperative. BMI 42.4 kg/m?, morbid obesity HEENT: Atraumatic, PERRLA, EOMI, Normocephalic. Oral: Oral mucosa dry. Neck: Supple, No JVD, Negative Carotid Bruits Chest wall/Lungs: Air entry diminished in bilateral lung bases. No crepitation/rhonchi Cardiovascular: Regular rate and rhythm, Normal S1,S2, No M/G/R Abdomen: Bowel Sounds Present, Soft, Non Tender, Non-Distended : No dysuria. No renal angle tenderness. No suprapubic tenderness. Extremities: No edema, Capillary Refill Less than 3 Seconds Skin: No rashes, No breakdown Musculoskeletal: No Tenderness to Palpation of Joints or Extremities Neurological: Cranial nerves II-XII grossly intact, DTR 2+/4. No acute focal neurological deficit. Psych/Mental Status: Flat affect, retrograde amnesia Assessment & Plan Assessment/Plan (1) Acute encephalopathy: (2) UTI (urinary tract infection): PLAN: Plan The patient is a 74 y/o M admitted with altered level of consciousness/change inmental status. As per patient's he was seeing animals and people not in the room. Denies fever chills cough cold or shortness of breath or focal symptoms of infection history of Parkinson disease frequent UTI and dementia in the past #1. Debility, Adult FTT secondary to Acute Encephalopathy, abnormal UA: Patientis being admitted toMedSurg floor. He denies burning pain/acute contact symptoms but has dementia. positive of WBC 25?50 cells, RBC 10-25 cells, LE 500, nitrite negative. Empirically on IV ceftriaxone. Patient was gently hydrated. PT and OT ordered. #2. Chronic Kidney Disease Stage IIIB: Admission BUN/Cr 21/1.62, GFR 44, baseline renal function primarily 1.4-1.9, most recently 10/19/2024 creatinine 1.60, Repeat creatinine 1.72. Continue IV fluid #3. Chronic thrombocytopenia, unclear exact etiology: Admission platelet 122, on baseline about 120,000. #4. Anxiety and Depression/Mood disorder: continue patient home Seroquel, trazodone, duloxetine home regimen with hold for sedation as needed. #5. IDDM with chronic neuropathy: hold oral home regimen, continue home insulin regimen, ADA diet, accu checks w/ ISS, cautiously continue home gabapentin regimen but hold for sedation as needed. #6. BPH with obstructive pathology: Will continue patient on Flomax regimen, monitor for obstruction. #7. Hypertension: Continue home regimen including lisinopril with hold parameters as needed, PRN hydralazine. #8. Parkinson disease with associated dementia unclear severity with visual hallucination: Advised follow-up with neurologist as an outpatient. PT and OT and social work associate. #9. Hypothyroidism: continue patient on levothyroxine regimen. #10. Hyperlipidemia: continue patient home ezetimibe. Not on a statin #11. Morbid Obesity: Weight loss and lifestyle changes encouraged. #12. Gout: Will continue patient on allopurinol regimen. #13. DVT prophylaxis: Lovenox. #14. CODE status: Patient FRANK is his who is present and living will is currently in place. Discussed CODE status at length including difference betweenFULL code, DNR-CCA and DNR-CC status. Following discussions about the differences in these status, requested DNR-CCA and following further dis cussionsand examples with intubation allowance. Laboratory Results 01/06/25 17:45: Ammonia 12.8 L 01/06/25 18:31: WBC 8.1, RBC 4.62, Hgb 14.1, Hct 42.2, MCV 91.3, MCH 30.5, MCHC 33.4, RDW Std Deviation 49.8 H, RDW Coeff of Veronica 15.0 H, Plt Count 122 L, MPV 9.6, Immature Gran % (Auto) 0.900, Neut %(Auto) 69.5, Lymph % (Auto) 20.3, Wake% (Auto) 5.7, Eos % (Auto) 2.9, Baso % (Auto) 0.7, Absolute Neuts (auto) 5.6, Absolute Lymphs (auto) 1.64, Nucleated RBC % 0, Sodium 135, Potassium 4.4, [id number], Carbon Dioxide 23.6, Anion Gap 12, BUN 21 H, Creatinine 1.62 H, Estim Creat Clear Calc 53.33, Est GFR (MDRD) Non-Af 44 L, BUN/Creatinine Ratio 12.9, Glucose 156 H, Calcium 9.6, Total Bilirubin 0.56, AST 20, ALT 18, AlkalinePhosphatase 84, Total Protein 7.8, Albumin 3.8, Globulin 4.0, Albumin/Gl obulin Ratio 1.0 01/06/25 19:55: Urine Color Straw, Urine Clarity Cloudy, Urine pH 6.0, Ur Specific [place] 1.015, Urine Protein 30 H, Urine Glucose (UA) 1000 H, Urine Ketones Negative, Urine Occult Blood 250 H, Urine Nitrite Negative, Urine Bilirubin Negative, Urine Urobilinogen Normal, Ur Leukocyte Esterase 500 H, Urine RBC 10-25 SEEN, Urine WBC 25-50 SEEN, Ur Squamous Epith Cells 0-5 SEEN, Urine Bacteria 1+, Urine Mucus 0 SEEN, Urine Yeast 3+ 01/07/25 01:03: POC Glucose 135 H 01/07/25 06:22: POC Glucose 132 H 01/07/25 06:37: WBC 7.5, RBC 4.00 L, Hgb 12.2 L, Hct 36.7 L, MCV 91.8, MCH 30.5,MCHC 33.2, RDW Std Deviation 51.2 H, RDW Coeff of Veronica 15.0 H, Plt Count 112 L, MPV 9.0, Immature Gran % (Auto) 0.700, Neut % (Auto) 61.7, Lymph % (Auto) 25.2, Wake % (Auto) 8.5, Eos % (Auto) 3.2, Baso % (Auto) 0.7, Absolute Neuts (auto) 4.7, Absolute Lymphs (auto) 1.90, Nucleated RBC % 0, Sodium 135, Potassium 4.1, Chloride 104, Carbon Dioxide 20.6 L, Anion Gap 11, BUN 21 H, Creatinine 1.72 H, Estim Creat Clear Calc49.59 L, Est GFR (MDRD) Non-Af 41 L, BUN/Creatinine Ratio12.3, Glucose 118 H, Calcium 8.8, Total Bilirubin 0.59, AST 16, ALT 12, AlkalinePhosphatase 72, Total Protein 6.9, Albumin 3.5, Globulin 3.4, Albumin/Globulin Ratio 1.0 01/07/25 11:53: POC Glucose 113 H Charges/Coding Visit Charges Inpatient E&M: 71426 Subs Hosp L2 01/07/25 1428 Cosigner Signature (if applicable): CC: ~ Signed [facility]09-06-2025 History and physical note Author Ute Hancock [facility] Note Date/Time January 06, 2025 11:31pm [facility] Medical Records Department [address] [place] [address] H&P Exam - Hospitalist 01/06/252236 MR#: [id number] Acct: [id number] Name: CHARLI PORRAS Rep #:[id number] : 1950 74 From: Ute Hancock MD PCP: ABHISHEK ST Status:ADM IN Location: [facility] [place] [id number] HPI - General General Date of Admission: 01/06/25 Date of Service: 01/06/25 Chief Complaint: Weakness, confusion, debility. HPI Narrative The patient is a 74 y/o M w/ PMHx: Hypothyroidism, Anxiety and Depression/Mood disorder, BPH with obstructive pathology, Morbid obesity, Chronic thrombocytopenia, CKD stage III unclear subtype per GFR trending, IDDM, Parkinson disease with associated dementia unclear exact extent with unclear behavioral disturbance history, Gout, HTN, HLD who presents to the [facility] ED on 01/06/25 with history of mental status changes, hallucinating, seeing animals and people not present with history of similar symptoms with acute urinary tract infections with no fever or chills but given pattern and concern patient was brought in from home per his . Patient does report that he is near chronic bedbound and she does have home health come in and help with him. He isnot extremely active at all baseline she notes. Workup in the ED included T98.3, heart rate 86, BP 146/90, respiratory rate 16, 96% on room air, CBC with WC 8.1, hemoglobin 14.1, platelet 122 without marked shift, CMP with BUN/Cr 21/1.62, GFR 44, glucose 156, hepatic profile unremarkable, chest x-ray with no acute cardiopulmonary findings, CT brain with no acute intracranial hemorrhage, mass effect or midline shift with chronic involutional and ischemic gliotic white matter changes, urinalysis with specific gravity 1.015, protein 30, glucose of thousand, occult blood 250, negative nitrite, leukocyte esterase 500 with 25-50 urine WBCs with 1+ urine bacteria, urine culture pending per ED. In the ED patient administered 1 L normal saline and initially trialed with oral Keflex 500 mg p.o. x 1 given possibility initially for discharge however given debility and weakness decision for admission. [facility] Medical History CKD (chronic kidney disease), stage III Insulin dependent diabetes mellitus Dementia Kidney disease Gout Dementia Diabetes HTN (hypertension) Home Medications ?Medication ?Instructions ?Recorded ?Last Taken ?Type allopurinol 100 mg tablet 100 mg PO DAILYCM gout 05/03 Unknown History lpltqwpr-[id number] acid 0.4 1 ea PO DAILY vitamin 04/05 05/16 Unknown History mg-lycopene 300 mcg-lutein 250 mcg tablet (Centrum Silver) donepezil 10 mg tablet 10 mg PO QHS dementia Unknown History dulaglutide 3 mg/0.5 mL 3 mg subcut QWEEK diabetes 1 05/18/23 Unknown History subcutaneous pen injector (Trulicity) duloxetine 60 mg capsule,delayed 60 mg PO DAILY depres francis 03/18/24 Unknown History release empagliflozin 25 mg tablet 25 mg PO DAILY diabetes Unknown History (Jardiance) ezetimibe 10 mg tablet 10 mg PO DAILY cholesterol 1 05/18/23 Unknown History glipizide 10 mg tablet, extended 10 mg PO DAILY diabet es 03/18/24 Unknown History release 24 hr levothyroxine 50 mcg tablet 50 mcg PO DAILY thyroid Unknown History lisinopril 2.5 mg tablet 2.5 mg PO DAILY blood pressu re 03/18/24 Unknown History pramipexole 0.125 mg tablet 0.125 mg PO BID parkinsons 03/18/24 Unknown History trazodone 50 mg tablet 50 mg PO DAILY@1700 #0 tabs 08/23/24 Unknown Rx trazodone 50 mg tablet 50 mg PO QHS #0 tabs 5 Unknown Rx insulin glargine 100 unit/mL (3 75 unit subcut QPM gerard betes 10/13/24 Unknown History mL) subcutaneous pen (Basaglar KwikPen U-100 Insulin) tamsulosin 0.4 mg capsule 0.4 mg PO DAILY urine flow 0 10/15/24 Unknown History docusate sodium 100 mg capsule 200 mg (2 x 100 mg) PO BID 10 days 10/19/24 Unknown Rx #40 caps gabapentin 800 mg tablet 400 mg (1/2 x 800 mg) PO TID CM 10/19/24 Unknown Rx nerve pain #45 tabs quetiapine 50 mg tablet 25 mg (1/2 x 50 mg) PO DAILY 10/19/24 Unknown Rx mental health 30 days #30 tabs cephalexin 250 mg capsule 250 mg PO DAILY 01/06/25 Unk nown History tramadol 50 mg tablet 50 mg PO TID pain 01/06/25 U nknown History Allergy/AdvReac Type Severity Reaction Status Date / Time ibuprofen AdvReac Abd Verified 01/06/25 18:17 cramps/diarrhea Family History (Updated 01/06/25 @ 23:[address] Ute Hancock MD) Mother CVA (cerebral vascular accident) Heart disease Father CVA (cerebral vascular accident) Heart disease Surgical History History of left shoulder replacement H/O knee surgery Social History household members: spouse housing: house current occupational status: retired Smoking Status: Never smoker alcohol intake: never substance use type: does not use ROS Review of Systems ROS Unobtainable: due to encephalopathy and due to mental condition Vital Signs Vital Signs Vital Signs: 01/06/25 18:14 01/06/25 19:16 01/06/25 20:00 Temperature 98.3 F 98.3 F 98.0 F Temperature Source Oral Oral Oral Pulse Rate 86 87 89 Respiratory Rate 16 18 17 Blood Pressure 146/90 H 121/74 H 125/66 H Blood Pressure Mean 108 89 85 Pulse Ox 96 99 99 Oxygen Delivery Method Room Air Room Air Room Air 01/06/25 21:00 01/06/25 22:00 Temperature 98.0 F Temperature Source Oral Pulse Rate 86 84 Respiratory Rate 16 16 Blood Pressure 115/68 125/65 H Blood Pressure Mean 83 85 Pulse Ox 98 97 Oxygen Delivery Method Room Air Room Air Weight Weight: 293 lb 10.491 oz Body Mass Index (BMI) 43.3 Physical Exam Narrative Physical Examination: General: Awake, alert, oriented to self, but confused above baseline with underlying dementia, speech normally garbled per report but may be potentially more so with significant fatigue, lethargy, currently no acute distress. Skin: Normal color, normal turgor, no icterus, no cyanosis except for occasionalstage ecchymoses, abrasion, notable bilateral lower extremity venous stasis skinchanges and does confirm that left calf is chronically larger than right calf. HEENT: AT/NC, EOMI, PERRLA, moderately dry MM, no obvious carotid bruit, difficult to discern JVD given thick neck. Lungs: Diminished, greater bases, no evidence of any distress, appropriate effort, no rales, ronchi or wheezing. Heart: Regular rate and rhythm; no gallop, rub audible. Abdomen: Soft, morbidly obese, NTTP, distant BS, no obvious distention or HSM, some discomfort with palpation of the suprapubic region/mild grimace. Extremities: No cyanosis, no clubbing, significant bilateral lower extremity pedal to proximal wade venous stasis skin changes, chronic left greater than right calf size confirmed per spouse. Neurological: Patient awake, alert, oriented as noted, cognitive function decreased from baseline and of note baseline is decreased and altered because ofunderlying dementia, pupils equally reactive to light and accommodation, cranialnerves grossly normal, moving all 4 extremities but notably limited in patient'sspouse does report he is chronically near bedbound, strength severely globally decreased. Psychiatric: Affect appears flat, fatigued, lethargic, no acute evidence of depressive or anxiety feelings but does have underlying history. Results Lab / Micro Data 01/06/25 18:31 01/06/25 18:31 Labs: Laboratory Results - last 24 hr 01/06/25 17:45: Ammonia 12.8 L 01/06/25 18:31: WBC 8.1, RBC 4.62, Hgb 14.1, Hct 42.2, MCV 91.3, MCH 30.5, MCHC 33.4, RDW Std Deviation 49.8 H, RDW Coeff of Veronica 15.0 H, Plt Count 122 L, MPV 9.6, Immature Gran % (Auto) 0.900, Neut % (Auto) 69.5, Lymph % (Auto) 20.3, Wake% (Auto) 5.7, Eos % (Auto) 2.9, Baso % (Auto) 0.7, Absolute Neuts (auto) 5.6, Absolute Lymphs (auto) 1.64, Nucleated RBC % 0, Sodium 135, Potassium 4.4, Chloride 100, Carbon Dioxide 23.6, Anion Gap 12, BUN 21 H, Creatinine 1.62 H, Estim Creat Clear Calc 53.33, Est GFR (MDRD) Non-Af 44 L, BUN/Creatinine Ratio 12.9, Glucose 156 H, Calcium 9.6, Total Bilirubin 0.56, AST 20, ALT 18, AlkalinePhosphatase 84, Total Protein 7.8, Albumin 3.8, Globulin 4.0, Albumin/Globulin Ratio 1.0 01/06/25 19:55: Urine Color Straw, Urine Clarity Cloudy, Urine pH 6.0, Ur Specific [place] 1.015, Urine Protein 30 H, Urine Glucose (UA) 1000 H, Urine Ketones Negative, Urine Occult Blood 250 H, Urine Nitrite Negative, Urine Bilirubin Negative, Urine Urobilinogen Normal, Ur Leukocyte Esterase 500 H, Urine RBC 10-25 SEEN, Urine WBC 25-50 SEEN, Ur Squamous Epith Cells 0-5 SEEN, Urine Bacteria 1+, Urine Mucus 0 SEEN, Urine Yeast 3+ Imaging Radiology Impression Brain CT 01/06/25 19:15 IMPRESSION: 1. No intracranial hemorrhage. No mass effect or midline shift. 2. Chronic involutional and ischemic gliotic white matter changes. Reading Location: [facility] Chest X-Ray 01/06/25 19:20 IMPRESSION: No Acute Findings. Reading Location: [facility] Assessment & Plan Assessment/Plan (1) Acute encephalopathy: (2) UTI (urinary tract infection): PLAN: Plan The patient is a 74 y/o M w/ PMHx: Hypothyroidism, Anxiety and Depression/Mood disorder, BPH with obstructive pathology, Morbid obesity, Chronic thrombocytopenia, CKD stage III unclear subtype per GFR trending, IDDM, Parkinson disease with associated dementia unclear exact extent with unclear behavioral disturbance history, Gout, HTN, HLD who presents to the [facility] ED on 01/06/25 with history of mental status changes, hallucinating, seeing animals and people not present with history of similar symptoms with acute urinary tract infections with no fever or chills but given pattern and concern patient was brought in from home per his . #1. Debility, Adult FTT secondary to Acute Encephalopathy secondary to Acute Complicated Urinary Tract Infection: Will admit to [facility] upon ED evaluation remarkable, pending UCx, will judiciously hydrate, monitor I/Os, continue IV Rocephin w/ transition as able pending sensitivities and speciation. PT/OT/case medicine consult for discharge planning. #2. Chronic Kidney Disease Stage III, unclear subtype: Admission BUN/Cr 21/1.62, GFR 44, baseline renal function primarily 1.4-1.9, most recently 10/19/2024 creatinine 1.60, repeat BMP in AM. #3. Chronic thrombocytopenia, unclear exact etiology: Admission platelet 122, baseline [id number], stable, continue to trend. #4. Anxiety and Depression/Mood disorder: Will cautiously continue patient homeSeroquel, trazodone, duloxetine home regimen with hold for sedation as needed. #5. IDDM with chronic neuropathy: Will hold oral home regimen, continue home insulin regimen, ADA diet, accu checks w/ ISS, cautiously continue home gabapentin regimen but hold for sedation as needed. #6. BPH with obstructive pathology: Will continue patient on Flomax regimen, monitor for obstruction. #7. Hypertension: Continue home regimen including lisinopril with hold parameters as needed, PRN hydralazine. #8. Parkinson disease with associated dementia unclear exact extent with unclear behavior disturbance history: Complicates presentation, maintain on fallprecautions, will continue patient home pramipexole and donepezil home regimen, PT/OT/case management consulted for discharge planning. #9. Hypothyroidism: Will continue patient on levothyroxine regimen. #10. Hyperlipidemia: Will continue patient home ezetimibe home regimen, not on statin therapy per current list. #11. Morbid Obesity: Weight loss and lifestyle changes encouraged. #12. Gout: Will continue patient on allopurinol regimen. #13. DVT prophylaxis: Lovenox. #14. CODE status: Patient FRANK is his who is present and living will is currently in place. Discussed CODE status at length including difference betweenFULL code, DNR-CCA and DNR-CC status. Following discussions about the differences in these status, requested DNR-CCA and following further discussionsand examples with intubation allowance. Advanced Care Planning Face to Face Time: 16 Charges/Coding Visit Charges Inpatient E&M: 60184 Init Hosp L3 Procedures Hospitalists Procedures: 86683 Advncd Care Plan 30 Min 01/06/25 2331 <Electronically signed by Ute Hancock MD> Cosigner Signature (if applicable): CC: MELY DUARTE; Dr. Ute Hancock MD~ Signed [facility] Work Phone: 1(213) 406-424509-06-2025 Discharge summary Author [facility] Note Date/Time January 06, 2025 11:17pm [facility] Medical Records Department [address] [place] [address] Emergency Department Summary 01/06/25 MR#: [id number] Acct: [id number] Name: CHARLI PORRAS Rep #:[id number] : 1950 74 From: Gene Monroy MD PCP: ABHISHE[facility] Status:ADM [facility] History of Present Illness Chief Complaint: Confusion Narrative Narrative: 74-year-old male past medical history of Parkinson's, frequent UTIs, dementia presents via EMS with altered level of consciousness/mental status change reported by his . Per EMS, patient has been hallucinating and seeing peopleand animals that are not present. He denies any fevers or chills, no cough or difficulty breathing. He did state that he has been having heartburn over the last few days. No exacerbating or alleviating factors. [facility] Medical History CKD (chronic kidney disease), stage III Insulin dependent diabetes mellitus Dementia Kidney disease Gout Dementia Diabetes HTN (hypertension) Home Medications ?Medication ?Instructions ?Recorded ?Last Taken ?Type allopurinol 100 mg tablet 100 mg PO DAILYCM gout 05/03 Unknown History mtgkdccu-axk-lidle acid 0.4 1 ea PO DAILY vitamin 04/05 05/16 Unknown History mg-lycopene 300 mcg-lutein 250 mcg tablet (Centrum Silver) donepezil 10 mg tablet 10 mg PO QHS dementia Unknown History dulaglutide 3 mg/0.5 mL 3 mg subcut QWEEK diabetes 1 05/18/23 Unknown History subcutaneous pen injector (Trulicity) duloxetine 60 mg capsule,delayed 60 mg PO DAILY depres francis 03/18/24 Unknown History release empagliflozin 25 mg tablet 25 mg PO DAILY diabetes Unknown History (Jardiance) ezetimibe 10 mg tablet 10 mg PO DAILY cholesterol 1 05/18/23 Unknown History glipizide 10 mg tablet, extended 10 mg PO DAILY diabet es 03/18/24 Unknown History release 24 hr levothyroxine 50 mcg tablet 50 mcg PO DAILY thyroid Unknown History lisinopril 2.5 mg tablet 2.5 mg PO DAILY blood pressu re 03/18/24 Unknown History pramipexole 0.125 mg tablet 0.125 mg PO BID parkinsons 03/18/24 Unknown History trazodone 50 mg tablet 50 mg PO DAILY@1700 #0 tabs 08/23/24 Unknown Rx trazodone 50 mg tablet 50 mg PO QHS #0 tabs 5 Unknown Rx insulin glargine 100 unit/mL (3 75 unit subcut QPM gerard betes 10/13/24 Unknown History mL) subcutaneous pen (Basaglar KwikPen U-100 Insulin) tamsulosin 0.4 mg capsule 0.4 mg PO DAILY urine flow 0 10/15/24 Unknown History docusate sodium 100 mg capsule 200 mg (2 x 100 mg) PO BID 10 days 10/19/24 Unknown Rx #40 caps gabapentin 800 mg tablet 400 mg (1/2 x 800 mg) PO TID CM 10/19/24 Unknown Rx nerve pain #45 tabs quetiapine 50 mg tablet 25 mg (1/2 x 50 mg) PO DAILY 10/19/24 Unknown Rx mental health 30 days #30 tabs cephalexin 250 mg capsule 250 mg PO DAILY 01/06/25 Unk nown History tramadol 50 mg tablet 50 mg PO TID pain 01/06/25 U nknown History Allergy/AdvReac Type Severity Reaction Status Date / Time ibuprofen AdvReac Abd Verified 01/06/25 18:17 cramps/diarrhea Surgical History History of left shoulder replacement H/O knee surgery Social History household members: spouse housing: house current occupational status: retired Smoking Status: Never smoker alcohol intake: never substance use type: does not use ROS ROS ED ROS Narrative Review of systems slightly limited secondary to dementia. States has had heartburn, denies headache, fevers, chills, cough, no recent nausea or vomiting,no dysuria, no other symptoms. EXAM Physical Exam Narrative Exam Narrative: Afebrile. Vital signs noted. Nontoxic-appearing. Cardiovascular examination reveals regular rate and rhythm. Lungs are clear to auscultation bilaterally. Abdomen is soft and nontender without guarding or rebound. Patient awake, alert, oriented to person, place, and year. Initially said Daria was president but then corrected self. Chronic lymphedema skin changes bilateral lower extremities. Able to wiggle toes bilaterally. Const Vital Signs: 01/06/25 18:14 01/06/25 19:16 01/06/25 20:00 Temperature 98.3 F 98.3 F 98.0 F Temperature Source Oral Oral Oral Pulse Rate 86 87 89 Respiratory Rate 16 18 17 Blood Pressure 146/90 H 121/74 H 125/66 H Blood Pressure Mean 108 89 85 Pulse Ox 96 99 99 Oxygen Delivery Method Room Air Room Air Room Air 01/06/25 21:00 01/06/25 22:00 01/06/25 22:00 Temperature 98.0 F 98.0 F Temperature Source Oral Oral Pulse Rate 86 84 85 Respiratory Rate 16 16 12 Blood Pressure 115/68 125/65 H 125/65 H Blood Pressure Mean 83 85 85 Pulse Ox 98 97 98 Oxygen Delivery Method Room Air Room Air Room Air 01/06/25 22:47 Temperature 98.0 F Temperature Source Pulse Rate 84 Respiratory Rate 15 Blood Pressure 105/64 Blood Pressure Mean 77 Pulse Ox 100 Oxygen Delivery Method MDM MDM MDM Narrative Medical decision making narrative: Differential diagnosis includes but not limited to ongoing dementia with hallucinations versus dehydration versus other electrolyte abnormality versus UTI versus occult pneumonia. History and physical does not support pneumonia. Comprehensive workup was pursued. I reviewed his prior problem list and he has had encephalopathy in the past. Comprehensive workup was pursued. I reviewed his laboratory work and he has a normal white count of 8.1 with hemoglobin normal at 14.1, hematocrit 42.2, platelet count low at 122. When compared to prior labs he has a chronic thrombocytopenia. I do not feel he needs a platelet transfusion. Electrolyte panel is significant for BUN of 21 and creatinine 1.62. When compared to prior labs he has been this high with his creatinine at 1.6 previously. Glucose of 156 I doubt he has hypoglycemia as a cause of his mental status change. Anion gap normal at 12. Sodium and potassium are normal. Ammonia level is low at 12.8 so I do not feel he has hepatic encephalopathy. Urinalysis does show 25-50WBCs with RBCs and 3+ yeast with 1+ bacteria. I reviewed his prior urine cultures and he has had yeast that is not Callie albicans in the past. I sent a urine culture again as he has 1+ bacteria and treated him with Rocephin 1 g intravenously as his is at the bedside currently and states that he has physical debility and is unable to ambulate and would like him admitted at leastfor observation for PT OT eval and possible rehab placement. I discussed patient with Dr. Ute Hancock as well as social work. Disposition is admitted in stable condition. History & Record Review Discussion w/independent historian: EMS personnel and Patient Additional record(s) reviewed:: Prior labs Lab Data Attestation: I reviewed the patient's lab results. Labs: Laboratory Results - last 24 hr 01/06/25 01/06/25 01/06/25 17:45 18:31 19:55 WBC 8.1 RBC 4.62 Hgb 14.1 Hct 42.2 MCV 91.3 MCH 30.5 MCHC 33.4 RDW Std Deviation 49.8 H RDW Coeff of Veronica 15.0 H Plt Count 122 L MPV 9.6 Immature Gran % (Auto) 0.900 Neut % (Auto) 69.5 Lymph % (Auto) 20.3 Wake % (Auto) 5.7 Eos % (Auto) 2.9 Baso % (Auto) 0.7 Absolute Neuts (auto) 5.6 Absolute Lymphs (auto) 1.64 Nucleated RBC % 0 Sodium 135 Potassium 4.4 Chloride 100 Carbon Dioxide 23.6 Anion Gap 12 BUN 21 H Creatinine 1.62 H Estim Creat Clear Calc 53.33 Est GFR (MDRD) Non-Af 44 L BUN/Creatinine Ratio 12.9 Glucose 156 H Calcium 9.6 Total Bilirubin 0.56 AST 20 ALT 18 Alkaline Phosphatase 84 Ammonia 12.8 L Total Protein 7.8 Albumin 3.8 Globulin 4.0 Albumin/Globulin Ratio 1.0 Urine Color Straw Urine Clarity Cloudy Urine pH 6.0 Ur Specific [place] 1.015 Urine Protein 30 H Urine Glucose (UA) 1000 H Urine Ketones Negative Urine Occult Blood 250 H Urine Nitrite Negative Urine Bilirubin Negative Urine Urobilinogen Normal Ur Leukocyte Esterase 500 H Urine RBC 10-25 SEEN Urine WBC 25-50 SEEN Ur Squamous Epith Cells 0-5 SEEN Urine Bacteria 1+ Urine Mucus 0 SEEN Urine Yeast 3+ Radiography Chest X-Ray - ED: 1 View, Read by ED Physician, Read by Radiologist and No AcuteDisease Diagnostic Testing: Clinical Impression(s) from Imaging Studies Brain CT 01/06/25 19:15 IMPRESSION: 1. No intracranial hemorrhage. No mass effect or midline shift. 2. Chronic involutional and ischemic gliotic white matter changes. Reading Location: [facility] Chest X-Ray 01/06/25 19:20 IMPRESSION: No Acute Findings. Reading Location: [facility] Management Discussion w/another healthcare provider: Hospitalist (Dr. Ute Hancock) and personal service workers/Case management Discharge Plan Triage Chief Complaint: Confusion ED Provider: Gene Monroy Dx/Rx/DC Orders Clinical Impression: Visual hallucinations, Dementia Primary Care Provider: ABHISHE[facility] ST What to do if you have Problems For any increased pain, shortness of breath, bleeding, nausea or vomiting, chestpain, or any unexpected problems, contact your Primary Care Provider. Call [facility] ([phone]) or report to the closest Emergency Room. Call 911 if necessary. 01/06/25 2317 <Electronically signed by Gene Monroy MD> Cosigner Signature (if applicable): CC: MELY DUARTE ~ Signed [facility] Work Phone: 1(397) 715-399609-05-2025 History and physical note [facility] Medical Records Department [address] [place] [address] H&P Exam - Hospitalist 01/06/252236 MR#: [id number] Acct: [id number] Name: CHARLI PORRAS Rep #:[id number] : 1950 74 From: Ute Hancock MD PCP: ABHISHEK ST Status:ADM IN Location: [facility] [id number] HPI - General General Date of Admission: 01/06/25 Date of Service: 01/06/25 Chief Complaint: Weakness, confusion, debility. HPI Narrative The patient is a 74 y/o M w/ PMHx: Hypothyroidism, Anxiety and Depression/Mood disorder, BPH with obstructive pathology, Morbid obesity, Chronic thrombocytopenia, CKD stage III unclear subtype per GFR trending, IDDM, Parkinson disease with associated dementia unclear exact extent with unclear behavioral disturbance history, Gout, HTN, HLD who presents to the [facility] ED on 01/06/25 with history of mental status changes, hallucinating, seeing animals and people not present with history of similar symptoms with acute urinary tract infections with no fever or chills but given pattern and concern patient was brought in from home per his . Patient does report that he is near chronic bedbound and she does have home health come in and help with him. He isnot extremely active at all baseline she notes. Workup in the ED included T98.3, heart rate 86, BP 146/90, respiratory rate 16, 96% on roomair, CBC with WC 8.1, hemoglobin 14.1, platelet 122 without marked shift, CMP with BUN/Cr 21/1.62, GFR 44, glucose 156, hepatic profile unremarkable, chest x-ray with no acute cardiopulmonary findings, CT brain with no acute intracranial hemorrhage, mass effect or midline shift with chronic involutional and ischemic gliotic white matter changes, urinalysis with specific gravity 1.015, protein 30,glucose of thousand, occult blood 250, negative nitrite, leukocyte esterase 500 with 25-50 urine WBCs with 1+ urine bacteria, urine culture pending per ED. In the ED patient administered 1 L normal saline and initially trialed with oral Keflex 500 mg p.o. x 1 given possibility initially for discharge however given debility and weakness decision for admission. [facility] Medical History CKD (chronic kidney disease), stage III Insulin dependent diabetes mellitus Dementia Kidney disease Gout Dementia Diabetes HTN (hypertension) Home Medications ?Medication ?Instructions ?Recorded ?Last Taken ?Type allopurinol 100 mg tablet 100 mg PO DAILYCM gout 05/03 Unknown History mviscfgb-dmm-tcgwg acid 0.4 1 ea PO DAILY vitamin 04/05 05/16 Unknown History mg-lycopene 300 mcg-lutein 250 mcg tablet (Centrum Silver) donepezil 10 mg tablet 10 mg PO QHS dementia Unknown History dulaglutide 3 mg/0.5 mL 3 mg subcut QWEEK diabetes 1 05/18/23 Unknown History subcutaneous pen injector (Trulicity) duloxetine 60 mg capsule,delayed 60 mg PO DAILY depres francis 03/18/24 Unknown History release empagliflozin 25 mg tablet 25 mg PO DAILY diabetes Unknown History (Jardiance) ezetimibe 10 mg tablet 10 mg PO DAILY cholesterol 1 05/18/23 Unknown History glipizide 10 mg tablet, extended 10 mg PO DAILY diabet es 03/18/24 Unknown History release 24 hr levothyroxine 50 mcg tablet 50 mcg PO DAILY thyroid Unknown History lisinopril 2.5 mg tablet 2.5 mg PO DAILY blood pressu re 03/18/24 Unknown History pramipexole 0.125 mg tablet 0.125 mg PO BID parkinsons 03/18/24 Unknown History trazodone 50 mg tablet 50 mg PO DAILY@1700 #0 tabs 08/23/24 Unknown Rx trazodone 50 mg tablet 50 mg PO QHS #0 tabs 5 Unknown Rx insulin glargine 100 unit/mL (3 75 unit subcut QPM gerard betes 10/13/24 Unknown History mL) subcutaneous pen (Basaglar KwikPen U-100 Insulin) tamsulosin 0.4 mg capsule 0.4 mg PO DAILY urine flow 0 10/15/24 Unknown History docusate sodium 100 mg capsule 200 mg (2 x 100 mg) PO BID 10 days 10/19/24 Unknown Rx #40 caps gabapentin 800 mg tablet 400 mg (1/2 x 800 mg) PO TID CM 10/19/24 Unknown Rx nerve pain #45 tabs quetiapine 50 mg tablet 25 mg (1/2 x 50 mg) PO DAILY 10/19/24 Unknown Rx mental health 30 days #30 tabs cephalexin 250 mg capsule 250 mg PO DAILY 01/06/25 Unk nown History tramadol 50 mg tablet 50 mg PO TID pain 01/06/25 U nknown History Allergy/AdvReac Type Severity Reaction Status Date / Time ibuprofen AdvReac Abd Verified 01/06/25 18:17 cramps/diarrhea Family History (Updated 01/06/25 @ 23:[address] Ute Hancock MD) Mother CVA (cerebral vascular accident) Heart disease Father CVA (cerebral vascular accident) Heart disease Surgical History History of left shoulder replacement H/O knee surgery Social History household members: spouse housing: house current occupational status: retired Smoking Status: Never smoker alcohol intake: never substance use type: does not use ROS Review of Systems ROS Unobtainable: due to encephalopathy and due to mental condition Vital Signs Vital Signs Vital Signs: 01/06/25 18:14 01/06/25 19:16 01/06/25 20:00 Temperature 98.3 F 98.3 F 98.0 F Temperature Source Oral Oral Oral Pulse Rate 86 87 89 Respiratory Rate 16 18 17 Blood Pressure 146/90 H 121/74 H 125/66 H Blood Pressure Mean 108 89 85 Pulse Ox 96 99 99 Oxygen Delivery Method Room Air Room Air Room Air 01/06/25 21:00 01/06/25 22:00 Temperature 98.0 F Temperature Source Oral Pulse Rate 86 84 Respiratory Rate 16 16 Blood Pressure 115/68 125/65 H Blood Pressure Mean 83 85 Pulse Ox 98 97 Oxygen Delivery Method Room Air Room Air Weight Weight: 293 lb 10.491 oz Body Mass Index (BMI) 43.3 Physical Exam Narrative Physical Examination: General: Awake, alert, oriented to self, but confused above baseline with underlying dementia,speech normally garbled per report but may be potentially more so with significant fatigue, lethargy, currently no acute distress. Skin: Normal color, normal turgor, no icterus, no cyanosis except for occasionalstage ecchymoses, abrasion, notable bilateral lower extremity venous stasis skinchanges and does confirm that leftcalf is chronically larger than right calf. HEENT: AT/NC, EOMI, PERRLA, moderately dry MM, no obvious carotid bruit, difficult to discern JVD given thick neck. Lungs: Diminished, greater bases, no evidence of any distress, appropriate effort, no rales, ronchior wheezing. Heart: Regular rate and rhythm; no gallop, rub audible. Abdomen: Soft, morbidly obese, NTTP, distant BS, no obvious distention or HSM, some discomfort withpalpation of the suprapubic region/mild grimace. Extremities: No cyanosis, no clubbing, significant bilateral lower extremity pedal to proximal shinvenous stasis skin changes, chronic left greater than right calf size confirmed per spouse. Neurological: Patient awake, alert, oriented as noted, cognitive function decreased from baseline and of note baseline is decreased and altered because ofunderlying dementia, pupils equally reactive to light and accommodation, cranialnerves grossly normal, moving all 4 extremities but notably limited in patient'sspouse does report he is chronically near bedbound, strength severely globally decreased. Psychiatric: Affect appears flat, fatigued, lethargic, no acute evidence of depressive or anxiety feelings but does have underlying history. Results Lab / Micro Data 01/06/25 18:31 01/06/25 18:31 Labs: Laboratory Results - last 24 hr 01/06/25 17:45: Ammonia 12.8 L 01/06/25 18:31: WBC 8.1, RBC 4.62, Hgb 14.1, Hct 42.2, MCV 91.3, MCH 30.5, MCHC 33.4, RDW Std Deviation 49.8 H, RDW Coeff of Veronica 15.0 H, Plt Count 122 L, MPV 9.6, Immature Gran % (Auto) 0.900, Neut %(Auto) 69.5, Lymph % (Auto) 20.3, Wake% (Auto) 5.7, Eos % (Auto) 2.9, Baso % (Auto) 0.7, Absolute Neuts (auto) 5.6, Absolute Lymphs (auto) 1.64, Nucleated RBC % 0, Sodium 135, Potassium 4.4, [id number], Carbon Dioxide 23.6, Anion Gap 12, BUN 21 H, Creatinine 1.62 H, Estim Creat Clear Calc 53.33, Est GFR (MDRD) Non-Af 44 L, BUN/Creatinine Ratio 12.9, Glucose 156 H, Calcium 9.6, Total Bilirubin 0.56, AST 20, ALT 18, AlkalinePhosphatase 84, Total Protein 7.8, Albumin 3.8, Globulin 4.0, Albumin/Gl obulin Ratio 1.0 01/06/25 19:55: Urine Color Straw, Urine Clarity Cloudy, Urine pH 6.0, Ur Specific [place] 1.015, Urine Protein 30 H, Urine Glucose (UA) 1000 H, Urine Ketones Negative, Urine Occult Blood 250 H, Urine Nitrite Negative, Urine Bilirubin Negative, Urine Urobilinogen Normal, Ur Leukocyte Esterase 500 H, Urine RBC 10-25 SEEN, Urine WBC 25-50 SEEN, Ur Squamous Epith Cells 0-5 SEEN, Urine Bacteria 1+, Urine Mucus 0 SEEN, Urine Yeast 3+ Imaging Radiology Impression Brain CT 01/06/25 19:15 IMPRESSION: 1. No intracranial hemorrhage. No mass effect or midline shift. 2. Chronic involutional and ischemic gliotic white matter changes. Reading Location: [facility] Chest X-Ray 01/06/25 19:20 IMPRESSION: No Acute Findings. Reading Location: [facility] Assessment & Plan Assessment/Plan (1) Acute encephalopathy: (2) UTI (urinary tract infection): PLAN: Plan The patient is a 74 y/o M w/ PMHx: Hypothyroidism, Anxiety and Depression/Mood disorder, BPH with obstructive pathology, Morbid obesity, Chronic thrombocytopenia, CKD stage III unclear subtype per GFR trending, IDDM, Parkinson disease with associated dementia unclear exact extent with unclear behavioral disturbance history, Gout, HTN, HLD who presents to the [facility] ED on 01/06/25 with history of mental status changes, hallucinating, seeing animals and people not present with history of similar symptoms with acute urinary tract infections with no fever or chills but given pattern and concern patient was brought in from home per his . #1. Debility, Adult FTT secondary to Acute Encephalopathy secondary to Acute Complicated Urinary Tract Infection: Will admit to [facility] upon ED evaluation remarkable, pending UCx, will judiciously hydrate, monitor I/Os, continue IV Rocephin w/ transition as able pending sensitivities and speciation.PT/OT/case medicine consult for discharge planning. #2. Chronic Kidney Disease Stage III, unclear subtype: Admission BUN/Cr 21/1.62, GFR 44, baseline renal function primarily 1.4-1.9, most recently 10/19/2024 creatinine 1.60, repeat BMP in AM. #3. Chronic thrombocytopenia, unclear exact etiology: Admission platelet 122, baseline 3575-4180, stable, continue to trend. #4. Anxiety and Depression/Mood disorder: Will cautiously continue patient homeSeroquel, trazodone,duloxetine home regimen with hold for sedation as needed. #5. IDDM with chronic neuropathy: Will hold oral home regimen, continue home insulin regimen, ADA diet, accu checks w/ ISS, cautiously continue home gabapentin regimen but hold for sedation as needed. #6. BPH with obstructive pathology: Will continue patient on Flomax regimen, monitor for obstruction. #7. Hypertension: Continue home regimen including lisinopril with hold parameters as needed, PRN hydralazine. #8. Parkinson disease with associated dementia unclear exact extent with unclear behavior disturbance history: Complicates presentation, maintain on fallprecautions, will continue patient home pramipexole and donepezil home regimen, PT/OT/case management consulted for discharge planning. #9. Hypothyroidism: Will continue patient on levothyroxine regimen. #10. Hyperlipidemia: Will continue patient home ezetimibe home regimen, not on statin therapy per current list. #11. Morbid Obesity: Weight loss and lifestyle changes encouraged. #12. Gout: Will continue patient on allopurinol regimen. #13. DVT prophylaxis: Lovenox. #14. CODE status: Patient FRANK is his who is present and living will is currently in place. Discussed CODE status at length including difference betweenFULL code, DNR-CCA and DNR-CC status. Following discussions about the differences in these status, requested DNR-CCA and following further dis cussionsand examples with intubation allowance. Advanced Care Planning Face to Face Time: 16 Charges/Coding Visit Charges Inpatient E&M: 46455 Init Hosp L3 Procedures Hospitalists Procedures: 80655 Advncd Care Plan 30 Min 01/06/25 2331 Cosigner Signature (if applicable): CC: MELY DUARTE; Dr. Ute Hancock MD~ Signed [facility]09-05-2025 Discharge summary [facility] Medical Records Department [address] [place] [address] Emergency Department Summary 01/06/25 MR#: [id number] Acct: [id number] Name: CHARLI PORRAS Rep #:[id number] : 1950 74 From: Gene Monroy MD PCP: ABHISHEK ST Status:ADM IN Location: [place] [address] HPI History of Present Illness Chief Complaint: Confusion Narrative Narrative: 74-year-old male past medical history of Parkinson's, frequent UTIs, dementia presents via EMS withaltered level of consciousness/mental status change reported by his . Per EMS, patient has beenhallucinating and seeing peopleand animals that are not present. He denies any fevers or chills, nocough or difficulty breathing. He did state that he has been having heartburn over the last few days. No exacerbating or alleviating factors. [facility] Medical History CKD (chronic kidney disease), stage III Insulin dependent diabetes mellitus Dementia Kidney disease Gout Dementia Diabetes HTN (hypertension) Home Medications ?Medication ?Instructions ?Recorded ?Last Taken ?Type allopurinol 100 mg tablet 100 mg PO DAILYCM gout 05/03 Unknown History xatkfvlj-wyc-bbdmn acid 0.4 1 ea PO DAILY vitamin 04/05 05/16 Unknown History mg-lycopene 300 mcg-lutein 250 mcg tablet (Centrum Silver) donepezil 10 mg tablet 10 mg PO QHS dementia Unknown History dulaglutide 3 mg/0.5 mL 3 mg subcut QWEEK diabetes 1 05/18/23 Unknown History subcutaneous pen injector (Trulicity) duloxetine 60 mg capsule,delayed 60 mg PO DAILY depres francis 03/18/24 Unknown History release empagliflozin 25 mg tablet 25 mg PO DAILY diabetes Unknown History (Jardiance) ezetimibe 10 mg tablet 10 mg PO DAILY cholesterol 1 05/18/23 Unknown History glipizide 10 mg tablet, extended 10 mg PO DAILY diabet es 03/18/24 Unknown History release 24 hr levothyroxine 50 mcg tablet 50 mcg PO DAILY thyroid Unknown History lisinopril 2.5 mg tablet 2.5 mg PO DAILY blood pressu re 03/18/24 Unknown History pramipexole 0.125 mg tablet 0.125 mg PO BID parkinsons 03/18/24 Unknown History trazodone 50 mg tablet 50 mg PO DAILY@1700 #0 tabs 08/23/24 Unknown Rx trazodone 50 mg tablet 50 mg PO QHS #0 tabs 5 Unknown Rx insulin glargine 100 unit/mL (3 75 unit subcut QPM gerard betes 10/13/24 Unknown History mL) subcutaneous pen (Okaglar Sera U-100 Insulin) tamsulosin 0.4 mg capsule 0.4 mg PO DAILY urine flow 0 10/15/24 Unknown History docusate sodium 100 mg capsule 200 mg (2 x 100 mg) PO BID 10 days 10/19/24 Unknown Rx #40 caps gabapentin 800 mg tablet 400 mg (1/2 x 800 mg) PO TID CM 10/19/24 Unknown Rx nerve pain #45 tabs quetiapine 50 mg tablet 25 mg (1/2 x 50 mg) PO DAILY 10/19/24 Unknown Rx mental health 30 days #30 tabs cephalexin 250 mg capsule 250 mg PO DAILY 01/06/25 Unk nown History tramadol 50 mg tablet 50 mg PO TID pain 01/06/25 U nknown History Allergy/AdvReac Type Severity Reaction Status Date / Time ibuprofen AdvReac Abd Verified 01/06/25 18:17 cramps/diarrhea Surgical History History of left shoulder replacement H/O knee surgery Social History household members: spouse housing: house current occupational status: retired Smoking Status: Never smoker alcohol intake: never substance use type: does not use ROS ROS ED ROS Narrative Review of systems slightly limited secondary to dementia. States has had heartburn, denies headache, fevers, chills, cough, no recent nausea or vomiting,no dysuria, no other symptoms. EXAM Physical Exam Narrative Exam Narrative: Afebrile. Vital signs noted. Nontoxic-appearing. Cardiovascular examination reveals regular rate and rhythm. Lungs are clear to auscultation bilaterally. Abdomen is soft and nontender without guarding or rebound. Patient awake, alert, oriented to person, place, and year. Initially said Daria was president but then corrected self. Chronic lymphedema skin changes bilateral lower extremities. Able to wiggle toes bilaterally. Const Vital Signs: 01/06/25 18:14 01/06/25 19:16 01/06/25 20:00 Temperature 98.3 F 98.3 F 98.0 F Temperature Source Oral Oral Oral Pulse Rate 86 87 89 Respiratory Rate 16 18 17 Blood Pressure 146/90 H 121/74 H 125/66 H Blood Pressure Mean 108 89 85 Pulse Ox 96 99 99 Oxygen Delivery Method Room Air Room Air Room Air 01/06/25 21:00 01/06/25 22:00 01/06/25 22:00 Temperature 98.0 F 98.0 F Temperature Source Oral Oral Pulse Rate 86 84 85 Respiratory Rate 16 16 12 Blood Pressure 115/68 125/65 H 125/65 H Blood Pressure Mean 83 85 85 Pulse Ox 98 97 98 Oxygen Delivery Method Room Air Room Air Room Air 01/06/25 22:47 Temperature 98.0 F Temperature Source Pulse Rate 84 Respiratory Rate 15 Blood Pressure 105/64 Blood Pressure Mean 77 Pulse Ox 100 Oxygen Delivery Method MDM MDM MDM Narrative Medical decision making narrative: Differential diagnosis includes but not limited to ongoing dementia with hallucinations versus dehydration versus other electrolyte abnormality versus UTI versus occult pneumonia. History and physical does not support pneumonia. Comprehensive workup was pursued. I reviewed his prior problem list and he has had encephalopathy in the past. Comprehensive workup was pursued. I reviewed his laboratory work and he has a normal white count of8.1 with hemoglobin normal at 14.1, hematocrit 42.2, platelet count low at 122. When compared to prior labs he has a chronic thrombocytopenia. I do not feel he needs a platelet transfusion. Electrolyte panel is significant for BUN of 21 and creatinine 1.62. When compared to prior labs he has been this high with his creatinine at 1.6 previously. Glucose of 156 I doubt he has hypoglycemia as a cause of his mental status change. Anion gap normal at 12. Sodium and potassium are normal. Ammonia level is low at 12.8 so I do not feel he has hepatic encephalopathy. Urinalysis does show 25-50WBCs with RBCs and 3+ yeast with 1+ bacteria. I reviewed his prior urine cultures and he has had yeast that is not Callie albicans in the past. I sent a urine culture again as he has 1+ bacteria and treated him with Rocephin 1 g intravenously as his is at the bedside currently and states that he has physical debility and is unable to ambulate and would like him admitted at leastfor observation for PTOT eval and possible rehab placement. I discussed patient with Dr. Ute Hancock as well as social work. Disposition is admitted in stable condition. History & Record Review Discussion w/independent historian: EMS personnel and Patient Additional record(s) reviewed:: Prior labs Lab Data Attestation: I reviewed the patient's lab results. Labs: Laboratory Results - last 24 hr 01/06/25 01/06/25 01/06/25 17:45 18:31 19:55 WBC 8.1 RBC 4.62 Hgb 14.1 Hct 42.2 MCV 91.3 MCH 30.5 MCHC 33.4 RDW Std Deviation 49.8 H RDW Coeff of Veronica 15.0 H Plt Count 122 L MPV 9.6 Immature Gran % (Auto) 0.900 Neut % (Auto) 69.5 Lymph % (Auto) 20.3 Wake % (Auto) 5.7 Eos % (Auto) 2.9 Baso % (Auto) 0.7 Absolute Neuts (auto) 5.6 Absolute Lymphs (auto) 1.64 Nucleated RBC % 0 Sodium 135 Potassium 4.4 Chloride 100 Carbon Dioxide 23.6 Anion Gap 12 BUN 21 H Creatinine 1.62 H Estim Creat Clear Calc 53.33 Est GFR (MDRD) Non-Af 44 L BUN/Creatinine Ratio 12.9 Glucose 156 H Calcium 9.6 Total Bilirubin 0.56 AST 20 ALT 18 Alkaline Phosphatase 84 Ammonia 12.8 L Total Protein 7.8 Albumin 3.8 Globulin 4.0 Albumin/Globulin Ratio 1.0 Urine Color Straw Urine Clarity Cloudy Urine pH 6.0 Ur Specific [place] 1.015 Urine Protein 30 H Urine Glucose (UA) 1000 H Urine Ketones Negative Urine Occult Blood 250 H Urine Nitrite Negative Urine Bilirubin Negative Urine Urobilinogen Normal Ur Leukocyte Esterase 500 H Urine RBC 10-25 SEEN Urine WBC 25-50 SEEN Ur Squamous Epith Cells 0-5 SEEN Urine Bacteria 1+ Urine Mucus 0 SEEN Urine Yeast 3+ Radiography Chest X-Ray - ED: 1 View, Read by ED Physician, Read by Radiologist and No AcuteDisease Diagnostic Testing: Clinical Impression(s) from Imaging Studies Brain CT 01/06/25 19:15 IMPRESSION: 1. No intracranial hemorrhage. No mass effect or midline shift. 2. Chronic involutional and ischemic gliotic white matter changes. Reading Location: [facility] Chest X-Ray 01/06/25 19:20 IMPRESSION: No Acute Findings. Reading Location: [facility] Management Discussion w/another healthcare provider: Hospitalist (Dr. Ute Hancock) and personal service workers/Case management Discharge Plan Triage Chief Complaint: Confusion ED Provider: Gene Monroy Dx/Rx/DC Orders Clinical Impression: Visual hallucinations, Dementia Primary Care Provider: ABHISHEK ST What to do if you have Problems For any increased pain, shortness of breath, bleeding, nausea or vomiting, chestpain, or any unexpected problems, contact your Primary Care Provider. Call [facility] ([phone]) or report tothe closest Emergency Room. Call 911 if necessary. 01/06/25 6427 Cosigner Signature (if applicable): CC: MELY DUARTE ~ Signed [facility]09-05-2025 Radiology Diagnostic study note [facility] Imaging Services [address] [place], [place] [address] Brain/Head without Contrast MR#: [id number] Acct: [id number] Name: CHARLI PORRAS Rep #: [id number] : 1950 M 74 From: Hermes Moncada MD PCP: ABHISHEK ST Status: REG ER Study:Brain/Head without Contrast Date of Exa m: 01/06/25 Exam# [id number] Ordering Dr: Gene Monroy MD PROCEDURE: BRAIN/HEAD WITHOUT CONTRAST 01/06/2025 REASON FOR EXAM: CHANGE IN MENTAL STATUS TECHNIQUE: Procedure Code: CTBR Modality: CT Procedure: BRAIN/HEAD WITHOUT CONTRAST Coronal and Sagittal reconstruction series were provided. One or more dose reduction techniques were used (e.g., Automated exposure control, adjustment of the mA and/or kV according to patient size, use of iterative reconstruction technique. COMPARISON: None available. FINDINGS: There is no extra-axial or intra-axial intracranial hemorrhage. No mass effect or midline shift is seen. Generalized intracranial volume loss and findings compatible with chronic microvascular white matter ischemia. There is normal frederick-white matter differentiation. The posterior fossa is grossly unremarkable. The skull is unremarkable. Visualized paranasal sinuses are clear. The mastoid air cells show normal translucency. CT/Brain/Head without Contrast IMPRESSION: 1. No intracranial hemorrhage. No mass effect or midline shift. 2. Chronic involutional and ischemic gliotic white matter changes. Reading Location: [facility] CC: MELY DUARTE; Dr. Gene Monroy MD ~ Medical Reimbursement Specialist: Signed [facility]09-05-2025 Radiology Diagnostic study note [facility] Imaging Services [address] [place] [id number] Chest 1 View (Portable) MR#: [id number] Acct: [id number] Name: CHARLI PORRAS Rep #: [id number] : 1950 74 From: Hermes Moncada MD PCP: ABHISHEK ST Status: REG ER Study:Chest 1 View (Portable) Date of Exam: 01/06/25 Exam# [id number] Ordering Dr: Gene Monroy MD PROCEDURE: CHEST 1 VIEW (PORTABLE) 01/06/2025 REASON FOR EXAM: COUGH TECHNIQUE: Frontal view of the chest. COMPARISON: CT angio chest 08/20/2024 FINDINGS: Hardware: None. Heart: The heart size is normal. Lungs: The lungs are clear. Bones: The bones are unremarkable. Other: Left shoulder arthroplasty. Cervical spine fixation hardware. RAD/Chest 1 View (Portable) IMPRESSION: No Acute Findings. Reading Location: [facility] CC: MELY DUARTE; Dr. Gene Monroy MD ~ Medical Reimbursement Specialist: Signed [facility]06-18-2025 Discharge summary [facility] Medical Records Department [address] [place] [address] Instructions for Home/Discharge Instructions 10/19/24 1513 MR#: [id number] Acct: [id number] Name: CHARLI PORRAS Rep #:[id number] : [...] can be placed): Home, Self Care 10/19/24 1529Panile Polk MD CC: MELY DUARTE; Dr. Bisi Rivera DO; Dr. John Rod DO ~ Signed [facility]18[facility] Progress note Author John Rod [facility] Note Date/Time October 18, 2024 5:09 pm [facility] Medical Records Department [address] [place] [address] Progress Note - Hospitalist 10/17/24 1904 MR#: [id number] Acct: [id number] Name: CHARLI PORRAS Rep #:[id number] : 1950 74 From: John Rod DO PCP: ABHISHEK ST Status:ADM IN Location: [facility] [id number] Reason for Visit Reason for Visit: [...] the patient to be placed in a longterm facility, we are awaiting pre-CERT #2 bacteriuria [...] 35 minutes Charges/Coding Visit Charges Inpatient E&M: 39445 Subs Hosp L2 10/18/24 1708 <Electronically signed by John Rod DO> Cosigner Signature (if applicable): CC: ~ Signed [facility] Work Phone: 1(703) 140-845706-17-2025 Progress note [facility] Medical Records Department [address] [place] [address] Progress Note - Hospitalist 10/17/24 1906 MR#: [id number] Acct: [id number] Name: CHARLI PORRAS Rep #:[id number] : 1950 74 From: John Rod DO PCP: ABHISHEK ST Status:ADM IN Location: [place] [address] Reason for Visit Reason for Visit: Diagnoses [...] wants the patient to be placedin a longterm facility, we are awaiting pre-CERT #2 bacteriuria [...] 35 minutes Charges/Coding Visit Charges Inpatient E&M: 70507 Subs Hosp L2 10/18/24 1709 Cosigner Signature (if applicable): CC: ~ Signed [facility]06-15-2025 Progress note Author John Viola [facility] Note Date/Time October 16, 2024 12:[address] [facility] Medical Records Department [address] [place] [address] Progress Note - Hospitalist 10/16/24 1234 MR#: [id number] Acct: [id number] Name: CHARLI PORRAS Rep #:[id number] : 1950 74 From: John Joaquinmanuel DO PCP: ABHISHEK ST Status:ADM IN Location: [place] [address] Reason for Visit Reason for Visit: Diagnoses [...] the patient to be placed in a longterm facility, we are awaiting pre-CERT #2 bacteriuria [...] 35 minutes Charges/Coding Visit Charges Inpatient E&M: 92069 Subs Hosp L2 10/16/24 1237 <Electronically signed by John Rod DO> Cosigner Signature (if applicable): CC: ~ Signed [facility] Work Phone: 1(466) 677-480606-15-2025 Progress note [facility] Medical Records Department [address] [place] [address] Progress Note - Hospitalist 10/16/24 1234 MR#: [id number] Acct: [id number] Name: CHARLI PORRAS Rep #:[id number] : 1950 74 From: John Rod DO PCP: ABHISHEK ST Status:ADM IN Location: [place] [address]- Reason for Visit Reason for Visit: Diagnoses [...] wants the patient to be placedin a longterm facility, we are awaiting pre-CERT #2 bacteriuria [...] 35 minutes Charges/Coding Visit Charges Inpatient E&M: 68261 [facility] Hosp L2 10/16/24 1237 Cosigner Signature (if applicable): CC: ~ Signed [facility]06-14-2025 Progress note Author John Rod [facility] Note Date/Time October 15, 2024 5:[address] [facility] Medical Records Department [address] [place] [address] Progress Note - Hospitalist 10/15/24 6119 MR#: [id number] Acct: [id number] Name: WARDELLIOTTLARRYThaliaCHARLI Jagjit Rep #:[id number] : 1950 74 From: John Rod DO PCP: ABHISHEK ST Status:ADM IN Location: [place] [address] Reason for Visit Reason for Visit: Diagnoses [...] the patient to be placed in a longterm facility, we are awaiting pre-CERT #2 bacteriuria [...] 35 minutes Charges/Coding Visit Charges Inpatient E&M: 75446 Subs Hosp L2 10/15/241717 <Electronically signed by John Rod DO> Cosigner Signature (if applicable): CC: ~ Signed [facility] Work Phone: 1(547) 564-957306-14-2025 Progress note [facility] Medical Records Department [address] [place] [address] Progress Note - Hospitalist 10/15/241713 MR#: [id number] Acct: [id number] Name: CHARLI PORRAS Rep #:[id number] : 1950 74 From: John Rod DO PCP: ABHISHEK ST Status:ADM IN Location: [facility] [id number]- [id number] Reason for Visit Reason for Visit: [...] wants the patient to be placedin a longterm facility, we are awaiting pre-CERT #2 bacteriuria [...] 35 minutes Charges/Coding Visit Charges Inpatient E&M: 47339 [facility] Hosp L2 10/15/24 3763 Cosigner Signature (if applicable): CC: ~ Signed [facility]06-13-2025 Progress note Author John Rod [facility] Note Date/Time October 14, 2024 6:[address] [facility] Medical Records Department [address] [place] [address] Progress Note - Hospitalist 10/14/24 8976 MR#: [id number] Acct: [id number] Name: CHARLI PORRAS Rep #:[id number] : 1950 74 From: John Viola MARCOS PCP: ABHISHEK ST Status:ADM IN Location: [place] [id number] Reason for Visit Reason for Visit: Diagnoses Sepsis, unspecified organism (10/13/24) Acidosis, unspecified (10/13/24) Metabolic encephalopathy (10/13/24) Urinary tract infection, site not specified (10/13/24) Subjective Subjective Patient was seen and examined today, he is a poor informant, I reviewed his problem list and he does have a history of dementia. According to case management, patient's family wants him placed in a longterm facility. I obtained the patient's urine culture [...] % (Auto) 67.1, Lymph % (Auto) 21.5, Wake % (Auto) 6.6, Eos % (Auto) 2.9, [...] Clarity Turbid, Urine pH 6.0, Ur Specific [place] 1.020, Urine Protein 100 H, Urine Glucose [...] % (Auto) 61.0, Lymph % (Auto) 26.1, Wake % (Auto) 7.8, Eos % (Auto) 3.2, [...] by Interventional Radiology, consider consult. Reading Location: [place] [address] Physical Exam Const alert and no apparent [...] OT, family has requested placement in a longterm facility #8 lactic acidosis-corrected at this time I do not feel the patient has sepsis at this time or septic shock, I am not surewhat caused the patient's lactic acidosis. Total clinical time spent by myself addressing the patient's medical issues, reviewing all of his data, and collaborating with the patient's care team: 50 minutes Charges/Coding Visit Charges Inpatient E&M: 39953 Subs Hosp L3 10/14/241854 <Electronically signed by John Rod DO> Cosigner Signature (if applicable): CC: ~ Signed [facility] Work Phone: 1(987) 871-263106-13-2025 Progress note [facility] Medical Records Department [address] [place] [address] Progress Note - Hospitalist 10/14/24 1836 MR#: [id number] Acct: [id number] Name: CHARLI PORRAS Rep #:[id number] : 1950 74 From: John Rod DO PCP: ABHISHEK ST Status:ADM IN Location: [place] [address]- 1 Reason for Visit Reason for Visit: Diagnoses Sepsis, unspecified organism (10/13/24) Acidosis, unspecified (10/13/24) Metabolic encephalopathy (10/13/24) Urinary tract infection, site not specified (10/13/24) Subjective Subjective Patient was seen and examined today, he is a poor informant, I reviewed his problem list and he does have a history of dementia. According to case management, patient's family wants him placed in a longterm facility. I obtained the patient's urine culture [...] 23:59 Intake Total 1000 / 1000 2219 / 2219 Output Total 2049 / 2049 Balance 1000 [...] % (Auto) 67.1, Lymph % (Auto) 21.5, Wake % (Auto) 6.6, Eos % (Auto) 2.9, [...] Clarity Turbid, Urine pH 6.0, Ur Specific [place] 1.020, Urine Protein 100 H, Urine Glucose [...] % (Auto) 61.0, Lymph % (Auto) 26.1, Wake % (Auto) 7.8, Eos % (Auto) 3.2, [...] by Interventional Radiology, consider consult. Reading Location: [place] [address] Physical Exam Const alert and no apparent [...] OT, family has requested placement in a longterm facility #8 lactic acidosis-corrected at this time I do not feel the patient has sepsis at this time or septic shock, I am not surewhat caused the patient's lactic acidosis. Total clinical time spent by myself addressing the patient's medical issues, reviewing all of his data, and collaborating with the patient's care team: 50 minutes Charges/Coding Visit Charges Inpatient E&M: 17490 [facility] Hosp L3 10/14/241854 Cosigner Signature (if applicable): CC: ~ Signed [facility]06-13-2025 History and physical note Author Bisi Rivera [facility] Note Date/Time October 14, 2024 1:54 am [facility] Medical Records Department [address] [place] [address] H&P Exam - Hospitalist 10/13/24 2344 MR#: [id number] Acct: [id number] Name: CHARLI PORRAS Rep #:[id number] : 1950 74 From: Bisi Rivera DO PCP: ABHISEHK ST Status:ADM IN Location: [facility] [id number]- [id number] HPI - General General Date of Admission: 10/13/24 Date of Service: 10/13/24 Chief Complaint: Altered mental status with recent UTI diagnosis HPI Narrative CHARLI PORRAS, is a 74 M who presented to the emergency department at [facility] on 10/13/2024 with his due to [...] fluid bolus given concern for volume overload. [facility] Medical History CKD (chronic kidney disease), stage III Insulin dependent diabetes mellitus Dementia Kidney disease Gout Dementia Diabetes HTN (hypertension) Home Medications ?Medication ?Instructions ?Recorded ?Last Taken ?Type allopurinol 100 mg tablet 100 mg PO DAILYCM 05/03/13 U nknown History gabapentin 800 mg tablet 800 mg PO TIDCM 05/03/13 Unk nown History ckawupcj-rty-haqoe acid 0.4 1 ea PO DAILY 05/03/13 [...] % (Auto) 67.1, Lymph % (Auto) 21.5, Wake % (Auto) 6.6, Eos % (Auto) 2.9, [...] Clarity Turbid, Urine pH 6.0, Ur Specific [place] 1.020, Urine Protein 100 H, Urine Glucose [...] by Interventional Radiology, consider consult. Reading Location: [place] [address] Assessment & Plan Assessment/Plan (1) Sepsis: (2) [...] fluid overload Charges/Coding Visit Charges Inpatient E&M: 99326 Init Hosp L3 10/14/24 0152 <Electronically signed by Bisi Rivera DO> Cosigner Signature (if applicable): CC: MELY DUARTE; Dr. Bisi Rivera DO~ Signed ADDENDUM by Dr. Bisi Rivera DO on 10/14/24 at 0153 Addendum Sepsis reevaluation after antibiotics and fluid administration. Lactic acidosishas improved. Hemodynamics remained stable. 10/14/24152<Electronically signed by Bisi Rivera DO> Cosigner Signature (if applicable): cc: MELY DUARTE; Dr. Bisi Rivera DO ~* Signed ADDENDUM by Dr. Bisi Rivera DO on 10/14/24 at 0153 Addendum Sepsis reevaluation done at 01 45 on 10/14/2024 10/14/24 015<Electronically signed by Bisi Rivera DO> Cosigner Signature (if applicable): cc: MELY DUARTE; Dr. Bisi Rivera DO ~* Signed [facility] Work Phone: 1(883) 993-758306-13-2025 Discharge summary Author Nick Coyle [facility] Note Date/Time October 14, 2024 12:0 6am [facility] Medical Records Department [address] [place] [address] Emergency Department Summary 10/13/24 MR#: [id number] Acct: [id number] Name: CHARLI PORRAS Rep #:[id number] : [...] oriented, grossly intact, sensation intact Psych: Cooperative [facility] Medical History Kidney disease Gout Dementia Diabetes HTN (hypertension) Home Medications ?Medication ?Instructions ?Recorded ?Last Taken ?Type allopurinol 100 mg tablet 100 mg PO DAILYCM 05/03/13 U nknown History gabapentin 800 mg tablet 800 mg PO TIDCM 05/03/13 Unk nown History czkiphlo-rey-lrper acid 0.4 1 ea PO DAILY 05/03/13 [...] % (Auto) 67.1 Lymph % (Auto) 21.5 Wake % (Auto) 6.6 Eos % (Auto) 2.9 [...] Clarity Turbid Urine pH 6.0 Ur Specific [place] 1.020 Urine Protein 100 H Urine Glucose [...] by Interventional Radiology, consider consult. Reading Location: [place] [address] Discharge Plan Triage Chief Complaint: Complaint ED [...] CRNP [Primary Care Provider] - Print Language: Samoan What to do if you have Problems For any increased pain, shortness of breath, bleeding, nausea or vomiting, chestpain, or any unexpected problems, contact your Primary Care Provider. Call [facility] ([phone]) or report to the closest Emergency Room. Call 911 if necessary. 10/14/24 0006 <Electronically signed by Nick Coyle DO> Cosigner Signature (if applicable): CC: MELY DUARTE ~ Signed [facility] Work Phone: 1(684) 976-625106-13-2025 History and physical note [facility] Medical Records Department [address] [place] [address] H&P Exam - Hospitalist 10/13/24 2344 MR#: [id number] Acct: [id number] Name: CHARLI PORRAS Rep #:[id number] : 1950 74 From: Bisi Rivera DO PCP: ABHISHEK ST Status:ADM IN Location: [place] [id number]- 1 HPI - General General Date of Admission: 10/13/24 Date of Service: 10/13/24 Chief Complaint: Altered mental status with recent UTI diagnosis HPI Narrative CHARLI PORRAS, is a 74 M who presented to the emergency department at [facility] on 10/13/2024 with his due to [...] fluid bolus given concern for volume overload. [facility] Medical History CKD (chronic kidney disease), stage III Insulin dependent diabetes mellitus Dementia Kidney disease Gout Dementia Diabetes HTN (hypertension) Home Medications ?Medication ?Instructions ?Recorded ?Last Taken ?Type allopurinol 100 mg tablet 100 mg PO DAILYCM 05/03/13 U nknown History gabapentin 800 mg tablet 800 mg PO TIDCM 05/03/13 Unk nown History otxsndkv-uyp-tfryb acid 0.4 1 ea PO DAILY 05/03/13 [...] % (Auto) 67.1, Lymph % (Auto) 21.5, Wake % (Auto) 6.6, Eos % (Auto) 2.9, [...] Clarity Turbid, Urine pH 6.0, Ur Specific [place] 1.020, Urine Protein 100 H, Urine Glucose [...] by Interventional Radiology, consider consult. Reading Location: [place] [address] Assessment & Plan Assessment/Plan (1) Sepsis: (2) [...] fluid overload Charges/Coding Visit Charges Inpatient E&M: 61101 Init Hosp L3 10/14/24 0152 Cosigner Signature (if applicable): CC: MELY DUARTE; Dr. Bisi Rivera DO~ Signed ADDENDUM by Dr. Bisi Rivera DO on 10/14/24 at 0153 Addendum Sepsis reevaluation after antibiotics and fluid administration. Lactic acidosishas improved. Hemodynamics remained stable. 10/14/24 0153 Cosigner Signature (if applicable): cc: MELY DUARTE; Dr. Bisi Rivera DO ~* Signed ADDENDUM by Dr. Bisi Rivera DO on 10/14/24 at 0153 Addendum Sepsis reevaluation done at 01 45 on 10/14/2024 10/14/24 0153 Cosigner Signature (if applicable): cc: MELY DUARTE; Dr. Bisi Rivera DO ~* Signed [facility]06-13-2025 History and physical note [facility] Medical Records Department [address] [place] [address] H&P Exam - Hospitalist 10/13/24 2344 MR#: [id number] Acct: [id number] Name: CHARLI PORRAS Rep #:[id number] : 1950 74 From: Bisi Rivera DO PCP: ABHISHEK ST Status:ADM IN Location: [address] 1 HPI - General General Date of Admission: 10/13/24 Date of Service: 10/13/24 Chief Complaint: Altered mental status with recent UTI diagnosis HPI Narrative CHARLI PORRAS, is a 74 M who presented to the emergency department at [facility] on 10/13/2024 with his due to [...] fluid bolus given concern for volume overload. [facility] Medical History CKD (chronic kidney disease), stage III Insulin dependent diabetes mellitus Dementia Kidney disease Gout Dementia Diabetes HTN (hypertension) Home Medications ?Medication ?Instructions ?Recorded ?Last Taken ?Type allopurinol 100 mg tablet 100 mg PO DAILYCM 05/03/13 U nknown History gabapentin 800 mg tablet 800 mg PO TIDCM 05/03/13 Unk nown History bievxeuz-prg-onjka acid 0.4 1 ea PO DAILY 05/03/13 [...] % (Auto) 67.1, Lymph % (Auto) 21.5, Wake % (Auto) 6.6, Eos % (Auto) 2.9, [...] Clarity Turbid, Urine pH 6.0, Ur Specific [place] 1.020, Urine Protein 100 H, Urine Glucose [...] by Interventional Radiology, consider consult. Reading Location: [place] [address] Assessment & Plan Assessment/Plan (1) Sepsis: (2) [...] fluid overload Charges/Coding Visit Charges Inpatient E&M: 59407 Init Hosp L3 10/14/24 0152 Cosigner Signature (if applicable): CC: MELY DUARTE; Dr. Bisi Rivera, DO~ Signed [facility]06-13-2025 Evaluation note* Diagnosis Onset Date Resolution Status Admit Date Acute encephalopathy acute October 13, 2024 11:44pm Physical debility acute October 132024 11:44pm Acute metabolic encephalopathy resol og October 13, 2024 11:44pm Lactic acidosis resolved October 11:44pm Sepsis deleted October 13 11:44pm UTI (urinary tract infection) delete d October 13, 2024 11:44pm Acute encephalopathy acute Sept emb2024 10:57pm Dementia acute January 06, 2025 10:57pm UTI (urinary tract infection) acute January 06, 2025 10:57pm Visual hallucinations acute Sep tember 2024 10:57pm [facility] Work Phone: 1([phone]) 284-949406-13-2025 History and physical note Author Bisi Rivera [facility] Note Date/Time October 14, 2024 1:52 am [facility] Medical Records Department [address] [facility] [place] [address] H&P Exam - Hospitalist 10/13/24 2344 MR#: [id number] Acct: [id number] Name: CHARLI PORRAS Rep #:[id number] : 1950 74 From: Bisi Rivera DO PCP: ABHISHEK ST Status:ADM IN Location: [place] [id number] HPI - General General Date of Admission: 10/13/24 Date of Service: 10/13/24 Chief Complaint: Altered mental status with recent UTI diagnosis HPI Narrative CHARLI PORRAS, is a 74 M who presented to the emergency department at [facility] on 10/13/2024 with his due to [...] fluid bolus given concern for volume overload. [facility] Medical History CKD (chronic kidney disease), stage III Insulin dependent diabetes mellitus Dementia Kidney disease Gout Dementia Diabetes HTN (hypertension) Home Medications ?Medication ?Instructions ?Recorded ?Last Taken ?Type allopurinol 100 mg tablet 100 mg PO DAILYCM 05/03/13 U nknown History gabapentin 800 mg tablet 800 mg PO TIDCM 05/03/13 Unk nown History qsifgvfi-szj-hrrgl acid 0.4 1 ea PO DAILY 05/03/13 [...] % (Auto) 67.1, Lymph % (Auto) 21.5, Wake % (Auto) 6.6, Eos % (Auto) 2.9, [...] Clarity Turbid, Urine pH 6.0, Ur Specific [place] 1.020, Urine Protein 100 H, Urine Glucose [...] by Interventional Radiology, consider consult. Reading Location: [place] [address] Assessment & Plan Assessment/Plan (1) Sepsis: (2) [...] fluid overload Charges/Coding Visit Charges Inpatient E&M: 21973 Init Hosp L3 10/14/24 0152 <Electronically signed by Bisi Rivera DO> Cosigner Signature (if applicable): CC: MELY DUARTE; Dr. Bisi Rivera DO~ Signed [facility] Work Phone: 1(757) [phone] Discharge summary [facility] Medical Records Department [address] [place] [address] Emergency Department Summary 10/13/24 MR#: [id number] Acct: [id number] Name: CHARLI PORRAS Rep #:[id number] : 1950 74 From: Nick perez DO PCP: ABHISHEK TS Status:REG ER Location: ED HPI History of [...] oriented, grossly intact, sensation intact Psych: [facility] Medical History Kidney disease Gout Dementia Diabetes HTN (hypertension) Home Medications ?Medication ?Instructions ?Recorded ?Last Taken ?Type allopurinol 100 mg tablet 100 mg PO DAILYCM 05/03/13 U nknown History gabapentin 800 mg tablet 800 mg PO TIDCM 05/03/13 Unk nown History rpefwugl-igm-djqqx acid 0.4 1 ea PO DAILY 05/03/13 [...] on chart review he has grown out Callei and gram-positive organisms. Will give Zosyn tocover [...] % (Auto) 67.1 Lymph % (Auto) 21.5 Wake % (Auto) 6.6 Eos % (Auto) 2.9 [...] Clarity Turbid Urine pH 6.0 Ur Specific [place] 1.020 Urine Protein 100 H Urine Glucose [...] by Interventional Radiology, consider consult. Reading Location: [id number] Discharge Plan Triage Chief Complaint: Complaint ED [...] CRNP [Primary Care Provider] - Print Language: Samoan What to do if you have Problems For any increased pain, shortness of breath, bleeding, nausea or vomiting, chestpain, or any unexpected problems, contact your Primary Care Provider. Call [facility] ([phone]) or report tothe closest Emergency Room. Call 911 if necessary. 10/14/24 0006 Cosigner Signature (if applicable): CC: MELY DUARTE ~ Signed [facility]06-12-2025 Radiology Diagnostic study note [facility] Imaging Services [address] [place], [place] [address] Abdomen/Pelvis without Cont MR#: [id number] Acct: [id number] Name: CHARLI PORRAS Rep #: [id number] : 1950 M 74 From: Lico Mckeon MD PCP: ABHISHEK ST Status: REG ER Study:Abdomen/Pelvis without Cont Date of Exa m: 10/13/24 Exam# [id number] Ordering Dr: Nick Batista DO PROCEDURE: ABDOMEN/PELVIS [...] by Interventional Radiology, consider consult. Reading Location: [id number] CC: MELY DUARTE; Dr. Nick Coyle DO ~ Medical Reimbursement Specialist: Signed [facility]06-12-2025 Discharge summary [facility] Note Date/Time October 14, 2024 12:0 6am [facility] Medical Records Department [address] [place] [address] Emergency Department Summary 10/13/24 MR#: [id number] Acct: [id number] Name: CHARLI PORRAS Rep #:[id number] : 1950 74 From: Nick perez DO PCP: ABHISEHK ST Status:REG ER Location: ED HPI History [...] oriented, grossly intact, sensation intact Psych: [facility] Medical History Kidney disease Gout Dementia Diabetes HTN (hypertension) Home Medications ?Medication ?Instructions ?Recorded ?Last Taken ?Type allopurinol 100 mg tablet 100 mg PO DAILYCM 05/03/13 U nknown History gabapentin 800 mg tablet 800 mg PO TIDCM 05/03/13 Unk nown History augztuly-ent-kdrmw acid 0.4 1 ea PO DAILY 05/03/13 [...] % (Auto) 67.1 Lymph % (Auto) 21.5 Wake % (Auto) 6.6 Eos % (Auto) 2.9 [...] Clarity Turbid Urine pH 6.0 Ur Specific [place] 1.020 Urine Protein 100 H Urine Glucose [...] by Interventional Radiology, consider consult. Reading Location: [id number] Discharge Plan Triage Chief Complaint: Complaint ED [...] CRNP [Primary Care Provider] - Print Language: Samoan What to do if you have Problems For any increased pain, shortness of breath, bleeding, nausea or vomiting, chestpain, or any unexpected problems, contact your Primary Care Provider. Call [facility] ([phone]) or report to the closest Emergency Room. Call 911 if necessary. 10/14/24 0006 <Electronically signed by Nick Coyle DO> Cosigner Signature (if applicable): CC: MELY DUARTE ~ Signed [facility] Work Phone: 1(388) 954-170304-22-2025 [facility]04-19-[address] [facility] Medical Records Department [address] [place] [address] H&P Exam - Hospitalist 08/20/24 0220 MR#: [id number] Acct: [id number] Name: CHARLI PORRAS Rep #:[id number] : 1950 74 From: Saroj scott DO PCP: Care Physician,No Primary Status :ADM IN Location: ICU ICU01-1 HPI - General General Date of Admission: 08/20/24 Date of Service: 08/20/24 Chief Complaint: Worsening confusion with tremors and weakness HPI Narrative CHARLI PORRAS, is a 74 M who presented to [facility] ED on 08/20/2024 with worsening confusion [...] and told me that he was at [facility]. However he could not answer any [...] patient being moved over to the ICU. [facility] Medical History Kidney disease Gout Dementia Diabetes HTN (hypertension) Home Medications ?Medication ?Instructions ?Recorded ?Last Taken ?Type allopurinol 100 mg tablet 100 mg PO DAILYCM 05/03/13 U nknown History gabapentin 800 mg tablet 800 mg PO TIDCM 05/03/13 Unk nown History yskydclq-hwz-rntub acid 0.4 1 ea PO DAILY 05/03/13 [...] (Auto) 87.2 H, Lymph % (Auto) 6.3 L,Wake % (Auto) 4.9, Eos % (Auto) 0.1, [...] Clarity Cloudy, Urine pH 6.0, Ur Specific [place] 1.010, Urine Protein 100 H, Urine Glucose [...] Three-vessel coronary calcification appears moderate. Reading Location: [id number] Assessment & Plan Assessment/Plan (1) Septic shock: (2) UTI (urinary tract infection): (3) Acute metabolic encephalopathy: PLAN: Plan Patient is a 74-year-old male who presented to [facility] ED on 08/20/2024 with worsening confusion with tremors and weakness. 1. Septic shock suspected secondary to UTI ? Admit under inpatient status to ICU. Timber Skidder consulted. Presentation seems most consistent with urosepsis [...] 75 minutes. Charges/Coding Visit Charges Inpatient E&M: 75387 Init Hosp L3 08/20/24 0347 Cosigner Signature [...] DO; No Primary Care Physician ~* Signed [facility]04-19-2025 Evaluation note* Diagnosis Onset Date Resolution Status Admit Date Acute metabolic encephalopathy acute August 20, 2024 3:15am Septic shock acute August 20, 2024 3:15am UTI (urinary tract infection) acute August 20, 2024 3:15am [facility] Work Phone: [phone] Evaluation note* Diagnosis Onset Date Resolution Status [...] diabetes mellitus inactive August 20, 2024 3:15am [facility] Work Phone: 1(534) 419-637804-19-2025 Evaluation note* Diagnosis Onset Date Resolution Status Admit Date Acute metabolic encephalopathy acute August 20, 2024 3:15am UTI (urinary tract infection) acute August 20, 2024 3:15am MISTY (acute kidney injury) resolved August 20, 2024 3:15am Septic shock resolved Rosalinda 19th, 2025 3:15am CKD (chronic kidney disease) , stage III inactive August 20, 2024 3:15am Dementia inactive August 20 3:15am Insulin dependent diabetes mellitus inactive August 20, 2024 3:15am [facility] Work Phone: 1(954) 373-612304-19-2025 Evaluation note* Diagnosis Onset Date Resolution Status [...] tract infection) acute October 13, 2024 11:44pm [facility] Work Phone: 1(508) 916-552304-19-2025 History and physical note [facility] Note Date/Time August 20, 2024 5:[address] [facility] Medical Records Department [address] [place] [address] H&P Exam - Hospitalist 08/20/24 0220 MR#: [id number] Acct: [id number] Name: CHARLI PORRAS Rep #:[id number] : 1950 74 From: Saroj scott DO PCP: Care Physician,No Primary Status :ADM IN Location: ICU ICU01-1 HPI - General General Date of Admission: 08/20/24 Date of Service: 08/20/24 Chief Complaint: Worsening confusion with tremors and weakness HPI Narrative CHARLI PORRAS, is a 74 M who presented to [facility] ED on 08/20/2024 with worsening confusion [...] and told me that he was at [facility]. However he could not answer any [...] patient being moved over to the ICU. [facility] Medical History Kidney disease Gout Dementia Diabetes HTN (hypertension) Home Medications ?Medication ?Instructions ?Recorded ?Last Taken ?Type allopurinol 100 mg tablet 100 mg PO DAILYCM 05/03/13 U nknown History gabapentin 800 mg tablet 800 mg PO TIDCM 05/03/13 Unk nown History dleedtpm-gea-jkjiy acid 0.4 1 ea PO DAILY 05/03/13 [...] (Auto) 87.2 H, Lymph % (Auto) 6.3 L,Wake % (Auto) 4.9, Eos % (Auto) 0.1, [...] Clarity Cloudy, Urine pH 6.0, Ur Specific [place] 1.010, Urine Protein 100 H, Urine Glucose [...] Three-vessel coronary calcification appears moderate. Reading Location: [id number] Assessment & Plan Assessment/Plan (1) Septic shock: (2) UTI (urinary tract infection): (3) Acute metabolic encephalopathy: PLAN: Plan Patient is a 74-year-old male who presented to [facility] ED on 08/20/2024 with worsening confusion with tremors and weakness. 1. Septic shock suspected secondary to UTI ? Admit under inpatient status to ICU. Timber Skidder consulted. Presentation seems most consistent with urosepsis [...] 75 minutes. Charges/Coding Visit Charges Inpatient E&M: 98940 Init Hosp L3 08/20/24 0347 <Electronically signed by Saroj Gutierrez DO> Cosigner Signature (if applicable): CC: Dr. aSroj Gutierrez DO; No Primary Care Physician~ Signed ADDENDUM by Dr. Sraoj Gutierrez DO on 08/20/24 at [address] Brown at 5:30am. Patient started on only 2.5 of peripheral levophed and blood pressures significantly increased to the 130s over 70s. Willhold off on central line placement for now. 08/20/24 0538<Electronically signed by Saroj Gutierrez DO> Cosigner Signature (if applicable): cc: Dr. Saroj Gutierrez DO; No Primary Care Physician ~* Signed [facility] Work Phone: 1(786) 736-182604-19-2025 Radiology Diagnostic study note [facility] Imaging Services [address] [place] [address] CTA Chest W/WO Contrast MR#: [id number] Acct: [id number] Name: CHARLI PORRAS Rep #: [id number] : 1950 M 74 From: Clay Garcia MD PCP: Care Physician,No Primary Status: REG ER Study:CTA Chest W/WO Contrast Date of Exam: 08/20/24 Exam# [id number] Ordering Dr: Dede Brown DO PROCEDURE: CTA [...] inferior vena cava filter suggested on the ticket counter views. Motion artifact significantly limits the evaluation. No large central or hilar saddle pulmonary embolism. Interlobar to subsegmental branches are not well evaluated. Thoracic aorta appears within limits. Three-vessel coronary calcification appears moderate. No pericardial or pleural effusion. Images of the upper abdomen appear unremarkable. Martin artifact from left shoulder replacement and anterior [...] Brown DO; No Primary Care Physician ~ Medical Reimbursement Specialist: Signed [facility]07-06-2023 Hospital Discharge instructions Additional Instructions Please follow-up with your doctor in 3 to 5 days return for any worsening of symptoms.[facility] Work Phone: 1(150) 282-541001-30-2023 Discharge summary Author Tello Lynch [facility] June 02, 2022 12:17pm Note Date/Time June 02, 2022 1 2:00pm [address] [address] Discharge Summary Signed Patient: CHARLI PORRAS MR#: [id number] : 1950 Acct:[id number] Age/Sex: 72 / M ADM Date: Loc: 2T 2014-05 Date of Service: 3 Clinician: Tello Lynch MD cc: Ericka Cassidy DS: Providers Date of admission: 05/31/22 18:18 Primary care physician: Ericka Cassidy DS: Summary Hospital course: This is a 72-year-old white male with significant past medical history of morbidobesity, diabetes mellitus type 2, dementia, hyperlipidemia, hypertension and DVT who presented to [facility] with complaints of altered mental status. Patient [...] MPV Neut % (Auto) Lymph % (Auto) Wake % (Auto) Eos % (Auto) Baso % (Auto) Neut # (Auto) Lymph # (Auto) Wake # (Auto) Eos # (Auto) Baso # [...] (Auto) 73.1 Lymph % (Auto) 16.2 L Wake % (Auto) 9.4 H Eos % (Auto) 0.9 Baso % (Auto) 0.4 Neut # (Auto) 6.0 Lymph # (Auto) 1.3 Wake # (Auto) 0.8 H Eos # (Auto) [...] MPV Neut % (Auto) Lymph % (Auto) Wake % (Auto) Eos % (Auto) Baso % (Auto) Neut # (Auto) Lymph # (Auto) Wake # (Auto) Eos # (Auto) Baso # [...] Tello Lynch Billing Billing Category Hospital Discharge: 39040 DC2 > 30 min Documented By: Tello Lynch MD 06/02/22 1056 Signed By: <Electronically signed by Tello Lynch MD> 06/02/22 1116 [facility] Work Phone: 1(730) 843-366001-30-2023 Progress note Author Barbara Gipson [facility] June 02, 2022 11:33am Note Date/Time June 02, 2022 1 1:[facility]am [facility] [address] [place] [address] Wound Care Progress Note Signed Patient: CHARLI PORRAS MR#: [id number] : 1950 Acct:[id number] Age/Sex: 72 / M ADM Date: Loc: 2T 2014-05 Date of Service: 3 Clinician: Barbara Gipson RN cc: Wound Care Progress Note - Wound Care Date of Admission: 05/31/22 18:18 Reason for Consult: buttocks Significant History: Medical history: Reports anemia, arthritis, dementia, diabetes, hypertension andrenal disease Additional Medical History: bundle branch block / dvt / [place] filter Surgical history: Reports adenoidectomy, cholecystectomy, knee [...] wounds every Thursday [ ] [Wound 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 I educated the [...] wounds; patient instructed to follow up with commodity supervisor outpatient Documented By: Barbara Gipson RN 06/02/22 1024 Signed By: <Electronically signed by Barbara Gipson RN> 06/02/22 1033 [facility] Work Phone: 1(192) 215-961501-28-2023 History and physical note Author Naresh Sainz [facility] May 31, 2022 7:30pm Note Date/Time May 31, 2022 7 :25pm [address] [address] History & Physical Signed Patient: CHARLI PORRAS MR#: [id number] : 1950 Acct:[id number] Age/Sex: 72 / M ADM Date: [...] History: bundle branch block / dvt / [place] filter Surgical history: Reports adenoidectomy, cholecystectomy, knee [...] Cloudy Urine pH 6.0 (4.6-8.0) Ur Specific [place] 1.020 (1.001-1.035) Urine Protein 30 A (NEGATIVE) [...] hypertension (5) Chronic anticoagulation: Code(s): Z79.01 - intermission coordinator (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 of anticoagulants (6) Diabetes mellitus: Qualifiers: Diabetes mellitus type: type 2 Diabetes mellitus keno terminal operator insulin use:with nursing home use Diabetes mellitus complication status: with neurologic complications Diabetes mellitus complication detail: with polyneuropathy Qualified Code(s): E11.42 - Type 2 diabetes mellitus with diabetic polyneuropathy; Z79.4 - intermission coordinator (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 of insulin Code(s): E11.9 - [...] L 93 Billing Billing Category Inpatient Initial: 61450 IP3 High Documented By: Naresh Sainz DO 05/31/22 18 18 Signed By: <Electronically signed by Naresh Sainz DO> 05/31/22 1830 [facility] Work Phone: 1(278) 283-154912-21-2022 Progress note Author Armen Carl [facility] April 23, 2022 7:53am Note Date/Time April 23, 2022 7:53am [address] [address] Progress Note Signed Patient: CHARLI PORRAS MR#: [id number] : 1950 Acct:[id number] Age/Sex: 71 / M ADM Date: [...] mg tablet 800 mg PO TID 11/24/17 04/19/2204/18/22 History (Neurontin) glipizide 5 mg tablet (Glucotrol) [...] Dose Route Start Last Admin Trade Name Amadouq PRN Reason Stop Dose Admin Acetaminophen 650 [...] Sodium Sliding Scale PO Not Given QDAYCOUMADIN PRAVEEN Vital Signs Temperature 98.9 F 04/23/22 00:00 [...] (Auto) 69.3 Lymph % (Auto) 15.1 L Wake % (Auto) 11.9 H Eos % (Auto) 2.8 Baso % (Auto) 0.9 Neut # (Auto) 4.8 Lymph # (Auto) 1.1 Wake # (Auto) 0.8 H Eos # (Auto) [...] MPV Neut % (Auto) Lymph % (Auto) Wake % (Auto) Eos % (Auto) Baso % (Auto) Neut # (Auto) Lymph # (Auto) Wake # (Auto) Eos # (Auto) Baso # [...] MPV Neut % (Auto) Lymph % (Auto) Wake % (Auto) Eos % (Auto) Baso % (Auto) Neut # (Auto) Lymph # (Auto) Wake # (Auto) Eos # (Auto) Baso # [...] (Auto) 66.0 Lymph % (Auto) 18.2 L Wake % (Auto) 10.1 H Eos % (Auto) 4.7 H Baso % (Auto) 1.0 Neut # (Auto) 4.6 Lymph # (Auto) 1.3 Wake # (Auto) 0.7 Eos # (Auto) 0.3 [...] Dry, Intact, Normal Color, Normal Turgor and [place] HEENT Exam Head: Present Normocephalic and Atraumatic [...] signed by Armen Carl MD> 04/23/22 0653 [facility] Work Phone: 1(993) 577-265912-20-2022 Consult note Author Mary Beth Landaverde [facility] April 22, 2022 12:21pm Note Date/Time April 22, 2022 10:13am [address] [address] Consult Note Signed with Sabrina Patient: CHARLI PORRAS MR#: [id number] : 1950 Acct:[id number] Age/Sex: 71 / M ADM Date: [...] a MoCA assessment. Patient was started on Txcxiza31 mg daily. Patient failed to follow-up outpatient, [...] an appoint with a neurologist established at [facility] in June, patient's instructed to keep this [...] unremarkable Addendum Documented By: Mary Beth Landaverde 04/22/22 09 Addendum Signed By: <Electronically signed by Mary Beth Landaverde > 04/22/22 0931 History of Present Illness Consult date: 04/22/22 Requesting physician: Judy Boo Chief complaint: AMS History of present illness: 71-year-old white male presented to [facility] 04-19-2022 for acute onset of weakness/fever/confusion. The patient has past medical history of obesity, type2 diabetes, hypertension, CKD, history of DVT on oral anticoagulants, MCI and neuropathy. The patient has history of following in the [facility] of [facility] for mild cognitive impairment last seen in [...] his daughter when the nurse came to [place] he thought possibly his daughter had hired [...] as stated General General: Present as per [facility] Past Medical/Surgical History Attestation statement: The following information was validated with the patient. Medical history: Reports anemia, arthritis, diabetes, hypertension and renal disease Additional Medical History: bundle branch block / dvt / [place] filter Surgical history: Reports adenoidectomy, cholecystectomy, knee [...] Lymph % (Auto) 15.1 L (24.0-44.0) % Wake % (Auto) 11.9 H (3.4-9.0) % Wake # (Auto) 0.8 H (0.20-0.70) K/uL Urine [...] Clear Urine pH 5.0 (4.6-8.0) Ur Specific [place] 1.015 (1.001-1.035) Urine Protein Negative (NEGATIVE) mg/dL [...] Acute (6) Chronic anticoagulation: Code(s): Z79.01 - FCI (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 of anticoagulants Status: Acute (7) [...] baseline hx of MCI; will r/o acute DIRECTOR ORACLE pathology -reviewed CTH report and noted NAD [...] <Electronically signed by Mary Beth Landaverde> 04/22/22 0935 [facility] Work Phone: 1(166) 464-816512-20-2022 Consult note Author Armen Carl [facility] April 22, 2022 7:39am Note Date/Time April 22, 2022 7:24am [facility] [address] [place] [address] Consult Note Signed Patient: CHARLI PORRAS MR#: [id number] : 1950 Acct:[id number] Age/Sex: 71 / M ADM Date: Loc: 3T 3026-1 Date of Service: 2 Clinician: Armen [...] History: bundle branch block / dvt / [place] filter Surgical history: Reports adenoidectomy, cholecystectomy, knee [...] Dry, Intact, Normal Color, Normal Turgor and [place] HEENT Exam Head: Present Normocephalic and Atraumatic [...] <Electronically signed by Armen Carl MD> 04/22/2239 [facility] Work Phone: 1(803) 397-993012-19-2022 Progress note Author Barbara Gipson [facility] April 21, 2022 11:50am Note Date/Time April 21, 2022 11:49am [place] [address] Wound Care Progress Note Signed Patient: CHARLI PORRAS MR#: [id number] : 1950 Acct:[id number] Age/Sex: 71 / M ADM Date: Loc: 3T 3026-1 Date of Service: 2 Clinician: Barbara Gipson RN cc: Wound Care Progress Note - Wound Care Date of Admission: 04/19/22 05:52 Reason for Consult: coccyx wound Significant History: Medical history: Reports anemia, arthritis, diabetes, hypertension and renal disease Additional Medical History: bundle branch block / dvt / [place] filter Surgical history: Reports adenoidectomy, cholecystectomy, knee [...] Recorded Date Recorded By Document 04/21/22 10:38 [id number] 04/21/22 10:39 WATKTAS 04/21/22 10:38 Incision/Wound/Dressing Assessment & Care [ ] Re-assess and measure wounds every Thursday [ ] [Wound Protocol: S.SCHOOL BUSINESS MANAGER] Left Ishium -Wound Type Abrasion -Comment friction injury -Drainage Amount None -Odor No Odor -Wound Bed Appearance [place],Red -Length (cm) 3.0 -Width (cm) 5.0 -Depth (cm) 0.1 -Margin Description Indistinct -Surrounding Tissue Appearance Dark Red -Surrounding Tissue Temperature Warm -Dressing Status Open to Air -Irrigant Solution Soap and Water -Skin Cream/Lotion Calazyme Current Interventions & Plan: Patient resting in bed in semifowlers position. Alert; states he's leaving and his left to checkout; knows he is at [facility] but seems confused. Oxygen via nasal [...] signed by Barbara Gipson RN> 04/21/22 1050 [facility] Work Phone: 1(103) 343-160412-17-2022 History and physical note Author Judy Boo [facility] April 19, 2022 7:12pm Note Date/Time April 19, 2022 7:12pm [facility] [address] [place] [address] History & Physical Signed Patient: CHARLI PORRAS MR#: [id number] : 1950 Acct:[id number] Age/Sex: 71 / M ADM Date: [...] Absent convulsions, dizziness or headache(s) [facility] Past Medical/Surgical History Attestation statement: The following information was validated with the patient. Medical history: Reports anemia, arthritis, diabetes, hypertension and renal disease Additional Medical History: bundle branch block / dvt / [place] filter Surgical history: Reports adenoidectomy, cholecystectomy, knee [...] 04/19/22 00:50 04/19/22 00:50 Abnormal lab results 04/19/22 04/19/22 04/19/22 Range/Units 00:50 00:50 00:50 MPV 6.6 L (7.4-10.4) fL Neut % (Auto) 77.7 H (40.0-74.0) % Lymph % (Auto) 12.6 L (24.0-44.0) % Wake # (Auto) 0.8 H (0.20-0.70) K/uL PT [...] (40.0-74.0) % Lymph % (Auto) (24.0-44.0) % Wake # (Auto) (0.20-0.70) K/uL PT (9.5-12.9) s [...] Hazy Urine pH 5.0 (4.6-8.0) Ur Specific [place] 1.015 (1.001-1.035) Urine Protein Trace A (NEGATIVE) [...] Acute (6) Chronic anticoagulation: Code(s): Z79.01 - intermission coordinator (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 of anticoagulants Status: Acute (7) [...] or Rubs Billing Billing Category Observation Initial: 93702 O3 High Documented By: Judy Boo MD 04/19/221803 Signed By: <Electronically signed by Judy Boo MD> 04/19/221811 [facility] Work Phone: discharge summary Author Verónica Atkinson [facility] April 23, 2022 11:07am Note Date/Time April 23, 2022 11:01am [facility] [address] [place] [address] Discharge Summary Signed Patient: CHARLI PORRAS MR#: [id number] : 1950 Acct:[id number] Age/Sex: 71 / M ADM Date: Loc: 2 2004-05 Date of Service: 2 Clinician: Verónica [...] follow-up with his already established neurologist at [facility], they agree to keep appointment in June [...] medication (5) Chronic anticoagulation: Code(s): Z79.01 - FCI (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 of anticoagulants Status: Chronic Assessment/Plan: [...] it. Patient does have a neurologist at [facility] and agrees to keep already scheduled appointment [...] MPV Neut % (Auto) Lymph % (Auto) Wake % (Auto) Eos % (Auto) Baso % (Auto) Neut # (Auto) Lymph # (Auto) Wake # (Auto) Eos # (Auto) Baso # [...] (Auto) 66.0 Lymph % (Auto) 18.2 L Wake % (Auto) 10.1 H Eos % (Auto) 4.7 H Baso % (Auto) 1.0 Neut # (Auto) 4.6 Lymph # (Auto) 1.3 Wake # (Auto) 0.7 Eos # (Auto) 0.3 [...] MPV Neut % (Auto) Lymph % (Auto) Wake % (Auto) Eos % (Auto) Baso % (Auto) Neut # (Auto) Lymph # (Auto) Wake # (Auto) Eos # (Auto) Baso # [...] MPV Neut % (Auto) Lymph % (Auto) Wake % (Auto) Eos % (Auto) Baso % (Auto) Neut # (Auto) Lymph # (Auto) Wake # (Auto) Eos # (Auto) Baso # [...] improvement Instructions 1:: followup with neurology at [facility] as already scheduled Discharge Instructions Activity: increase [...] Verónica Atkinson Billing Billing Category Observation Discharge: 76809 OD Documented By: BRANT Cabrera 04/23/22 0830 Signed By: <Electronically signed by BRANT Atkinson> 04/23/[address] [place] [address] Work Phone: discharge summary Author Jocelyn Polk [facility] Note Date/Time October 19, 2024 3:29 pm [facility] Medical Records Department [address] [place] [address] Instructions for Home/Discharge Instructions 10/19/24 1513 MR#: [id number] Acct: [id number] Name: CHARLI PORRAS Rep #:[id number] : [...] Bisi Rivera DO; Dr. John Rod DO ~ Signed [facility] Work Phone: Discharge summary Author Mao Muse [facility] Note Date/Time January 10, 2025 12:19pm [facility] Medical Records Department [address] [place] [address] Transfer to Extended Care MR#: [id number] Acct: [id number] Name: CHARLI PORRAS Rep #:[id number] : 1950 74 From: Mao Justin PCP: ABHISHEK ST Status:ADM IN Certification of patient admission REQUIRED AT TIME OF ADMISSION. I CERTIFY THAT POST-HOSPITAL ECF SERVICES ARE REQUIRED TO BE GIVEN ON AN IN-PATIENT BASIS BECAUSE OF THE ABOVE NAMED PATIENT'S NEED FOR PENITENTIARY CARE ON A CONTINUING BASIS FOR THE CONDITION(S) FOR WHICH HE/SHE WAS RECEIVING IN-PATIENT HOSPITAL SERVICES PRIOR TO HIS/HER TRANSFER TO THE F. 01/10/25 1219<Electronically signed by Mao Muse MD> Diet Diet Order/Speech Therapy: INPATIENT Hospital Diet / Speech Therapy Order(s) 01/09/25 12:51 Diet: Regular - General Type of Dietary Supplement:: Jensen Diet Comments: Jensen w/ breakfast and dinner Routine Orders/Code Status Suppository Type: Dulcolax 10mg Suppository Frequency: Daily PRN Routine Lab Work: BMP (2 weeks, follow with PCP) DC O2, CPAP, BIPAP needs Home O2 Discharge instructions: No Wound(s) buttocks: Wound Type: Pressure Injury 2nd & 3rd toes: Wound Type: Neuropathic/Diabetic Foot Ulcer Therapies Extremity Affected:: Bilateral Lower Physical Therapy: Eval and Treat Occupational Therapy: Eval and Treat Speech Therapy: Eval and Treat Problem/Diagnosis (1) Acute encephalopathy: Status: Acute Code(s): G93.40 - Encephalopathy, unspecified (2) UTI (urinary tract infection): Status: Acute Code(s): N39.0 - Urinary tract infection, site not specified Plan The patient is a 74 y/o M admitted with altered level of consciousness/change inmental status. As per patient's he was seeing animals and people not in the room. Denies fever chills cough cold or shortness of breath or focal symptoms of infection history of Parkinson disease frequent UTI and dementia in the past #1. Debility, Adult FTT secondary to Acute Encephalopathy, most likely toxic encephalopathy due to multiple antipsychotic medications: [facility] He denies burning pain/acute contact symptoms but has dementia. positive of WBC 25?50 cells, RBC 10-25 cells, LE 500, nitrite negative. Empirically on IV ceftriaxone. Patient was gently hydrated. PT and OT ordered. 01/08: Patient mental status improved after decreasing the antipsychotic medications. He is doing good on Seroquel 50 mg daytime and trazodone 100 mg at night. Besides that he is also on gabapentin 400 mg 3 times daily, decreased to300 mg 3 times daily. Aricept 10 mg at bedtime. Duloxetine 60 mg daily. Tramadol 50 mg 3 times daily. Urine culture prelim shows yeast 25,000-50 colonies per mL. IV antibiotics ceftriaxone discontinued 01/09: Mental status much improved. Continue same doses. #2. Chronic Kidney Disease Stage IIIB: Admission BUN/Cr 21/1.62, GFR 44, baseline renal function primarily 1.4-1.9, most recently 10/19/2024 creatinine 1.60, Repeat creatinine 1.72. Continue IV fluid 01/09: Monitor kidney function. #3. Chronic thrombocytopenia, unclear exact etiology: Admission platelet 122, on baseline about 120,000. #4. Anxiety and Depression/Mood disorder: continue patient home Seroquel, trazodone, duloxetine home regimen with hold for sedation as needed. #5. IDDM with chronic neuropathy: hold oral home regimen, continue home insulin regimen, ADA diet, accu checks w/ ISS, cautiously continue home gabapentin regimen but hold for sedation as needed. #6. BPH with obstructive pathology: Will continue patient on Flomax regimen, monitor for obstruction. #7. Hypertension: Continue home regimen including lisinopril with hold parameters as needed, PRN hydralazine. #8. Parkinson disease with associated dementia unclear severity with visual hallucination: Advised follow-up with neurologist as an outpatient. PT and OT and social work associate. #9. Hypothyroidism: continue patient on levothyroxine regimen. #10. Hyperlipidemia: continue patient home ezetimibe. Not on a statin #11. Morbid Obesity: Weight loss and lifestyle changes encouraged. #12. Gout: Will continue patient on allopurinol regimen. #13. DVT prophylaxis: Lovenox. #14. CODE status: Patient FRANK is his who is present and living will is currently in place. Discussed CODE status at length including difference betweenFULL code, DNR-CCA and DNR-CC status. Following discussions about the differences in these status, requested DNR-CCA and following further discussionsand examples with intubation allowance. Microbiology Past 72 Hours 01/06/25 19:55 Urine Catheter - Catheter Urine Culture - Preliminary Yeast Laboratory Results 01/07/25 16:14: POC Glucose 163 H 01/07/25 21:25: POC Glucose 125 H 01/08/25 05:16: POC Glucose 224 H 01/08/25 11:28: POC Glucose 206 H Allergies/Procedures Done in Hospital Allergies ibuprofen Adverse Reaction (Verified 01/06/25 18:17) Abd cramps/diarrhea Type of Care/Length of Stay Estimated LOS: Convalescent Care Less Than 30 days Type of Care Needed: Skilled Rehab Potential: Good Prognosis: Good Additional Orders/Day of Discharge Day of Discharge: 01/10/25 Dietary and Speech Recommendations Dietitian Recommendations/Changes: Will liberalize diet to Regular d/t poor po intake at meals Will order glucerna shake tid w/ medpass for increased nutrition if consumed Will order jensen bid w/ meals for increased nutrition to help w/ wound healing if consumed. Discharge Plan Admission Admit Date/Time: 01/06/25 22:57 Attending Provider: Mao Muse Primary Care Provider: ABHISHEK ST Consulting Providers: Ute Hancock Instructions Patient Instructions: ED ALOC, ED Confusion Discharge Orders/Prescriptions Prescriptions: New acetaminophen 325 mg Tablet 650 mg PO Q4H PRN PRN (Reason: Fever, pain 1-02/10) Qty: 0 0RF sennosides-docusate sodium [Stimulant Laxative Plus] 8.6-50 mg Tablet 2 tab PO BID Qty: 0 0RF insulin lispro [Humalog KwikPen Insulin] 100 unit/mL Insulin Pen See Protocol subcut ACHS Qty: 0 0RF Protocol: 3. Sliding Scale Insulin Med Dosing Condition: 150-189 mg/dl = 1 unit Condition: 190-229 mg/dl = 2 units Condition: 230-269 mg/dl = 3 units Condition: 270-309 mg/dl = 4 units Condition: 310-349 mg/dl = 5 units Condition: 350-399 mg/dl = 6 units Condition: 400-449 mg/dl = 7 units Condition: Greater than 449 call physician Protocol Text: - Use for Total Daily Dose of Insulin 37-55 units - Obsese, infected, or steroid patients MEDIUM DOSING ALGORITHIM Continued allopurinol 100 MG tablet 100 mg PO DAILYCM Centrum Silver 1 EACH tablet 1 ea PO DAILY insulin glargine [Basaglar KwikPen U-100 Insulin] 100 unit/mL (3 mL) insulin pen 75 unit subcut QPM tamsulosin 0.4 mg capsule 0.4 mg PO DAILY gabapentin 800 MG tablet 400 mg PO TIDCM Qty: 45 0RF donepezil 10 mg tablet 10 mg PO [...] 50 mcg tablet 50 mcg PO DAILY tramadol 50 mg tablet 50 mg PO TID quetiapine 100 mg tablet 100 mg PO BID trazodone 50 mg Tablet 100 mg PO QHS Rx Instructions: Home medication. quetiapine 50 mg tablet 50 mg PO DAILY Discontinued docusate sodium 100 mg Capsule 200 mg PO BID 10 Days Qty: 40 0RF trazodone 50 mg Tablet 50 mg PO DAILY@1700 Qty: 0 0RF Rx Instructions: Home medication. cephalexin 250 mg capsule 250 mg PO DAILY Referrals / Follow Up: ABHISHEK ST CRNP [Primary Care Provider] - 3-5 Days if not improving Disposition Disposition (needs filled in before D/C Order can be placed): Group Home Facility 01/10/251218 <Electronically signed by Mao Muse MD> Cosigner Signature (if applicable): CC: MELY DUARTE; Dr. Ute Hancock MD ~ [facility] Work Phone: Discharge summary Author Mao Muse [facility] Note Date/Time January 10, 2025 12:23pm [facility] Medical Records Department [address] [place] [address] Discharge Summary 01/10/251218 MR#: [id number] Acct: [id number] Name: CHARLI PORRAS Rep #:[id number] : 1950 74 From: Mao Justin PCP: ABHISHEK ST Status:ADM IN Location: NE3 IT324-2 Providers Date of Admission: 01/06/25 Date of Discharge: 01/10/25 Primary Care Physician: MELY DUARTE Reason For Visit: ENCEPHALOPATHY, UTI Diagnosis Discharge Diagnosis (1) Acute encephalopathy: Status: Acute Code(s): G93.40 - Encephalopathy, unspecified (2) UTI (urinary tract infection): Status: Acute Code(s): N39.0 - Urinary tract infection, site not specified Plan The patient is a 74 y/o M admitted with altered level of consciousness/change inmental status. As per patient's he was seeing animals and people not in the room. Denies fever chills cough cold or shortness of breath or focal symptoms of infection history of Parkinson disease frequent UTI and dementia in the past #1. Debility, Adult FTT secondary to Acute Encephalopathy, most likely toxic encephalopathy due to multiple antipsychotic medications: Patient is being admitted to [facility] floor. He denies burning pain/acute contact symptoms but has dementia. positive of WBC 25?50 cells, RBC 10-25 cells, LE 500, nitrite negative. Empirically on IV ceftriaxone. Patient was gently hydrated. PT and OT ordered. 01/08: Patient mental status improved after decreasing the antipsychotic medications. He is doing good on Seroquel 50 mg daytime and trazodone 100 mg atnight. Besides that he is also on gabapentin 400 mg 3 times daily, decreased to300 mg 3 times daily. Aricept 10 mg at bedtime. Duloxetine 60 mg daily. Tramadol 50 mg 3 times daily. Urine culture prelim shows yeast 25,000-50 colonies per mL. IV antibiotics ceftriaxone discontinued 01/09: Mental status much improved. Continue same doses. 01/10: Patient discharged on inpatient regimen of Seroquel 50 mg daily and trazodone 100 mg at night. UTI ruled out. #2. Chronic Kidney Disease Stage IIIB: Admission BUN/Cr 21/1.62, GFR 44, baseline renal function primarily 1.4-1.9, most recently 10/19/2024 creatinine 1.60, Repeat creatinine 1.72. Continue IV fluid 01/09: Monitor kidney function. 01/10: Advised to change tramadol 50 mg 3 times daily as needed #3. Chronic thrombocytopenia, unclear exact etiology: Admission platelet 122, on baseline about 120,000. #4. Anxiety and Depression/Mood disorder: continue patient home Seroquel, trazodone, duloxetine home regimen with hold for sedation as needed. #5. IDDM with chronic neuropathy: hold oral home regimen, continue home insulin regimen, ADA diet, accu checks w/ ISS, cautiously continue home gabapentin regimen but hold for sedation as needed. 01/10 patient's glucoses controlled on Lantus insulin. Home oral hypoglycemic agent including empagliflozin medications resumed. #6. BPH with obstructive pathology: Will continue patient on Flomax regimen, monitor for obstruction. #7. Hypertension: Continue home regimen including lisinopril with hold parameters as needed, PRN hydralazine. #8. Parkinson disease with associated dementia unclear severity with visual hallucination: Advised follow-up with neurologist as an outpatient. PT and OT and social work associate. #9. Hypothyroidism: continue patient on levothyroxine regimen. #10. Hyperlipidemia: continue patient home ezetimibe. Not on a statin #11. Morbid Obesity: Weight loss and lifestyle changes encouraged. #12. Gout: Will continue patient on allopurinol regimen. #13. DVT prophylaxis: Lovenox. #14. CODE status: Patient FRANK is his who is present and living will is currently in place. Discussed CODE status at length including difference betweenFULL code, DNR-CCA and DNR-CC status. Following discussions about the differences in these status, requested DNR-CCA and following further discussionsand examples with intubation allowance. Discharge medication reconciliation done. Discharge follow-up instructions completed. Discharge process discussed with the patient and all questions wereanswered to patient's satisfaction. Follow with PCP in 1 to 2 weeks Total time spent, exact 35 minutes on discharge meds reconciliation, examination, coordination of care with nurses and ancillary staff, review of imaging and blood test and discussion with the patient on follow-up instructions. Microbiology Past 72 Hours 01/06/25 19:55 Urine Catheter - Catheter Urine Culture - Preliminary Yeast Laboratory Results 01/07/25 16:14: POC Glucose 163 H 01/07/25 21:25: POC Glucose 125 H 01/08/25 05:16: POC Glucose 224 H 01/08/25 11:28: POC Glucose 206 H Medications at Discharge Home Medications allopurinol 100 mg tablet 100 mg PO DAILYCM gout 05/03/13 grunrvwn-deg-xbdpi acid 0.4 mg-lycopene 300 mcg-lutein 250 mcg [...] tablet 0.125 mg PO BID parkinsons 03/18/24 insulin glargine 100 unit/mL (3 mL) subcutaneous pen (Basaglar KwikPen U-100 Insulin) 75 unit subcut QPM diabetes 10/13/24 tamsulosin 0.4 mg capsule 0.4 mg PO DAILY urine flow 10/15/24 gabapentin 800 mg tablet 400 mg (1/2 x 800 mg) PO TIDCM nerve pain #45 tabs 10/19/24 tramadol 50 mg tablet 50 mg PO TID pain 01/06/25 quetiapine 100 mg tablet 100 mg PO BID . 01/07/25 quetiapine 50 mg tablet 50 mg PO DAILY mental health 01/07/25 trazodone 50 mg tablet 100 mg PO QHS 01/07/25 acetaminophen 325 mg tablet 650 mg (2 x 325 mg) PO Q4H PRN PRN Fever, pain 1- 02/10 #0 tabs 01/10/25 insulin lispro 100 unit/mL subcutaneous pen (Humalog KwikPen (U-100) Insulin) See Protocol subcut ACHS #0 mL 01/10/25 sennosides 8.6 mg-docusate sodium 50 mg tablet (Stimulant Laxative Plus) 2 tab PO BID #0 tabs 01/10/25 Physical Exam Narrative Seen and examined. Patient is more awake and alert. Talking coherent. Patient had bowel movement yesterday Still needs 2 people assist to stand up because of morbid obesity. Physical exam General: Awake, oriented x3, Cooperative. BMI 42.4 kg/m?, morbid obesity HEENT: Atraumatic, PERRLA, EOMI, Normocephalic. Oral: Oral mucosa dry. Neck: Supple, No JVD, Negative Carotid Bruits Chest wall/Lungs: Air entry diminished in bilateral lung bases. No crepitation/rhonchi Cardiovascular: Regular rate and rhythm, Normal S1,S2, No M/G/R Abdomen: Bowel Sounds Present, Soft, Non Tender, Non-Distended : No dysuria. No renal angle tenderness. No suprapubic tenderness. Extremities: No edema, Capillary Refill Less than 3 Seconds Skin: No rashes, No breakdown Musculoskeletal: No Tenderness to Palpation of Joints or Extremities. Needs 2 people assist. Neurological: Cranial nerves II-XII grossly intact, DTR 2+/4. No acute focal neurological deficit. Psych/Mental Status: Flat affect, retrograde amnesia Weight / BMI Weight Weight: 288 lb 5.834 oz Body Mass Index (BMI) 42.7 ABG / Lab / Microbiology Data 01/07/25 06:37 01/10/25 04:31 Laboratory: Laboratory Results - last 24 hr 01/09/25 16:51: POC Glucose 177 H 01/09/25 20:15: POC Glucose 145 H 01/10/25 04:31: Sodium 136, Potassium 3.8, Chloride 102, Carbon Dioxide 22.3, Anion Gap 11, BUN 15, Creatinine 1.61 H, Estim Creat Clear Calc 53.12, Est GFR (MDRD) Non-Af 44 L, BUN/Creatinine Ratio 9.1 L, Glucose 140 H, Calcium 8.3 01/10/25 06:15: POC Glucose 149 H Microbiology: Microbiology 01/06/25 19:55 Urine Catheter - Catheter Urine Culture - Final Yeast, not Callie albicans Yeast, not Callie albicans#2 D/C Instructions DC O2, CPAP, BIPAP Needs Home O2 Discharge instructions: No Meaningful Use Info Meaningful Use Meaningful Use Diagnoses (Choose all that apply): None applicable Discharge Plan Admission Admit Date/Time: 01/06/25 22:57 Primary Reason for Your Visit: Acute encephalopathy Attending Provider: Mao Muse Primary Care Provider: ABHISHEK ST Consulting Providers: Ute Hancock Instructions Patient Instructions: ED ALOC, ED Confusion Additional Instructions / Restrictions: Advised change tramadol to 50 mg 3 times daily as needed for severe pain Discharge Orders/Prescriptions Prescriptions: New acetaminophen 325 mg Tablet 650 mg PO Q4H PRN PRN (Reason: Fever, pain -02/10) Qty: 0 0RF sennosides-docusate sodium [Stimulant Laxative Plus] 8.6-50 mg Tablet 2 tab PO BID Qty: 0 0RF insulin lispro [Humalog KwikPen Insulin] 100 unit/mL Insulin Pen See Protocol subcut ACHS Qty: 0 0RF Protocol: 3. Sliding Scale Insulin Med Dosing Condition: 150-189 mg/dl = 1 unit Condition: 190-229 mg/dl = 2 units Condition: 230-269 mg/dl = 3 units Condition: 270-309 mg/dl = 4 units Condition: 310-349 mg/dl = 5 units Condition: 350-399 mg/dl = 6 units Condition: 400-449 mg/dl = 7 units Condition: Greater than 449 call physician Protocol Text: - Use for Total Daily Dose of Insulin 37-55 units - Obsese, infected, or steroid patients MEDIUM DOSING ALGORITHIM Continued allopurinol 100 MG tablet 100 mg PO DAILYCM Centrum Silver 1 EACH tablet 1 ea PO DAILY insulin glargine [Basaglar KwikPen U-100 Insulin] 100 unit/mL (3 mL) insulin pen 75 unit subcut QPM tamsulosin 0.4 mg capsule 0.4 mg PO DAILY gabapentin 800 MG tablet 400 mg PO TIDCM Qty: 45 0RF donepezil 10 mg tablet 10 mg PO [...] 50 mcg tablet 50 mcg PO DAILY tramadol 50 mg tablet 50 mg PO TID quetiapine 100 mg tablet 100 mg PO BID trazodone 50 mg Tablet 100 mg PO QHS Rx Instructions: Home medication. quetiapine 50 mg tablet 50 mg PO DAILY Discontinued docusate sodium 100 mg Capsule 200 mg PO BID 10 Days Qty: 40 0RF trazodone 50 mg Tablet 50 mg PO DAILY@1700 Qty: 0 0RF Rx Instructions: Home medication. cephalexin 250 mg capsule 250 mg PO DAILY Referrals / Follow Up: ABHISHEK ST CRNP [Primary Care Provider] - 3-5 Days if not improving Disposition Disposition (needs filled in before D/C Order can be placed): Group Home Facility Charges/Coding Visit Charges Inpatient E&M: 96535 Disch Hosp >30min 01/10/25 1223 <Electronically signed by Mao Muse MD> Cosigner Signature (if applicable): CC: MELY DUARTE; Dr. Mao Mues MD~ Signed 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 Work Phone: Hospital Discharge instructionsAdditional Instructions Advised change tramadol to 50 mg 3 times daily as needed for severe pain [facility]: [facility] note Author Barbara Gipson [facility] April 23, 2022 12:41pm Note Date/Time April 23, 2022 12:41pm [facility] r [address] [place] [id number] Wound Care Progress Note Signed Patient: CHARLI PORRAS MR#: [id number] : 1950 Acct:[id number] Age/Sex: 71 / M ADM Date: Loc: 2T 2004-05 Date of Service: 2 Clinician: Barbara Gipson RN cc: Wound Care Progress Note - Wound Care Date of Admission: 04/19/22 05:52 Reason for Consult: coccyx wound Significant History: Medical history: Reports anemia, arthritis, diabetes, hypertension and renal disease Additional Medical History: bundle branch block / dvt / [place] filter Surgical history: Reports adenoidectomy, cholecystectomy, knee [...] Recorded Date Recorded By Document 04/23/22 11:36 [id number] [id number] 04/23/22 11:38 WATKTAS 04/23/22 11:36 Incision/Wound/Dressing Assessment & Care [ ] Re-assess and measure wounds every Thursday [ ] [Wound Protocol: 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 -Wound Type Abrasion -Drainage Amount None -Odor No Odor -Wound Bed Appearance Red,Peeling Skin -Length (cm) 2.0 -Width (cm) 1.0 -Depth (cm) 0.1 -Margin Description Indistinct -Surrounding Tissue Appearance [place] -Surrounding Tissue Temperature Warm -Dressing Status Open to Air -Irrigant Solution Soap and Water -Skin Cream/Lotion Calazyme Left Ishium -Wound Type Abrasion -Drainage Amount None -Odor No Odor -Wound Bed Appearance Red,Peeling Skin -Length (cm) 3.0 -Width (cm) 2.0 -Depth (cm) 0.1 -Margin Description Indistinct -Surrounding Tissue Appearance [place] -Surrounding Tissue Temperature Warm -Dressing Status Open [...] signed by Barbara Gipson RN> 04/23/22 1141 [facility] Work Phone: reason for referral (narrative)No reason for referral [facility] Work Phone: Hospital Course Note [facility] 1E MED SURG [address] [facility] [address] Dept: [phone] Loc: [phone] Adult Hip and Knee Reconstruction Service Patient [...] Purpose Family History No Family History Records Found Relationship Condition Age at Onset Recorded Date/T keenan mother Cerebrovascular accident (CVA) Unknown Cardiac disease Unknown father Cerebrovascular accident (CVA) Unknown Advance Directives No Advanced Directives Records Found Advance Directive Response Recorded Date/ Time Advance Directives No April 12:16am Organ Donor No April 19, 2 022 12:16am Tissue Donor No April 19, 2 022 12:16am Advance Directive Response Recorded Date/ Time Advance Directives No April 3:33pm Living Will No April 19, 2 022 3:33pm Organ Donor No April 19, 2 022 3:33pm Power of Flotation Tender No April 19, 2022 3:33pm Tissue Donor No April 19, 2 022 3:33pm Advance Directive Response Recorded Date/ Time Advance Directives No May 31, 2022 6:53pm Living Will No May 31 6:53pm Organ Donor No May 31 6:53pm Power of Flotation Tender No May 31, 2022 6:53pm Relationship Ariadna () cell phone [phone] June 01, 2022 1:07pm Tissue Donor No May 31 6:53pm Advance Directive Response Recorded Date/ Time Living Will No November 06, 2022 2 :32pm Power of Flotation Tender No November 06, 2022 2:32pm Advance Directive Response Recorded Date/ Time Living Will No August 20, 2024 12:00am Do you have a Healthcare Power of Flotation Tender? No August 20, 2024 12:00am Advance Directive Response Recorded Date/ Time Do you have a Healthcare Pow er of Flotation Tender? Yes October 13, 2024 8:30pm Name of Medical Power of Flotation Tender Ariadna daugherty October 13, 2024 8:30pm Living Will No August 20, 2024 12:00am Do you have a Healthcare Pow er of Flotation Tender? No August 20, 2024 12:00am Advance Directive Response Recorded Date/ Time Do you have a Healthcare Pow er of Flotation Tender? No October 14, 2024 2:17am Name of Medical Power of Flotation Tender Ariadna daugherty October 13, 2024 8:30pm Living Will No August 20, 2024 12:00am Do you have a Healthcare Pow er of Flotation Tender? No August 20, 2024 12:00am Advance Directive Response Recorded Date/ Time Do you have a Healthcare Pow er of Flotation Tender? No October 14, 2024 2:17am Name of Medical Power of Flotation Tender Ariadna daugherty October 13, 2024 8:30pm Do you have a Healthcare Pow er of Flotation Tender? No January 06, 2025 6:17pm Advance Directive Response Recorded Date/ Time Do you have a Healthcare Pow er of Flotation Tender? No October 14, 2024 2:17am Name of Medical Power of Flotation Tender Ariadna daugherty October 13, 2024 8:30pm Do you have a Healthcare Pow er of Flotation Tender? No January 06, 2025 11:46pm Chief Complaint and Reason for Visit Chief [...] (urinary tract infection) October 13, 2024 11:44pm Chief Complaint Admit Date Altered mental status October 13, 2024 11 :44pm SEPSIS 2/2 UTI October 14, 2024 6:36 pm SEPSIS 2/2 UTI October 15, 2024 5:14 pm SEPSIS 2/2 UTI October 16, 2024 12:3 4pm SEPSIS 2/2 UTI October 17, 2024 7:06 pm Altered mental status October 19, 2024 3: 29pm ENCEPHALOPATHY, UTI January 06, 2025 10:57pm Reason for Visit Admit Date Acute encephalopathy October 13, 2024 11: 44pm Physical debility October 13, 2024 11:4 4pm Acute metabolic encephalopathy October 11:44pm Lactic acidosis October 13, 2024 11:4 4pm Sepsis October 13, 2024 11:4 4pm UTI (urinary tract infection) October 13, 2024 11:44pm Acute encephalopathy January 06, 2025 10:57pm Dementia January 06, 2025 10:57pm UTI (urinary tract infection) January 06, 2025 10:57pm Visual hallucinations January 06 10:57pm Chief Complaint Admit Date Altered mental status October 13, 2024 11 :44pm SEPSIS 2/2 UTI October 14, 2024 6:36 pm SEPSIS 2/2 UTI October 15, 2024 5:14 pm SEPSIS 2/2 UTI October 16, 2024 12:3 4pm SEPSIS 2/2 UTI October 17, 2024 7:06 pm Altered mental status October 19, 2024 3: 29pm ENCEPHALOPATHY, UTI January 06, 2025 10:57pm ENCEPHALOPATHY, UTI January 07, 2025 11:10am ENCEPHALOPATHY, UTI January 08, 2025 2:01pm ENCEPHALOPATHY, UTI January 09, 2025 3:16pm ENCEPHALOPATHY, UTI January 10, 2025 10:13am Additional Source Comments (unrecognized sect ion and content) No Status Records FoundNo Status Records FoundNo Status Records FoundNo Status Records FoundNo Status Records FoundNo Status Records FoundNo Status Records FoundNo Status Records Found INFORMATION SOURCE (unrecogn ized section and content) DATE CREATED AUTHOR 02/10/2019 [facility] DATE CREATED AUTHOR AUTHOR'S ORGANIZ ATION 05/12/[address] [facility] DATE CREATED AUTHOR AUTHOR'S ORGANIZ ATION 07/18/2020 [facility] ([place]) DATE CREATED AUTHOR AUTHOR'S ORGANIZ ATION 03/15/2022 [facility] DATE CREATED AUTHOR AUTHOR'S ORGANIZ ATION 06/11/2022 [facility] DATE CREATED AUTHOR AUTHOR'S ORGANIZ ATION 07/10/2022 [facility] DATE CREATED AUTHOR AUTHOR'S ORGANIZ ATION 01/10/2023 [facility] ([place]) DATE CREATED AUTHOR AUTHOR'S ORGANIZ ATION 01/19/[address] [facility] Care Teams (unrecognized sec tion [...] August 20, 2024 Dr. Saroj Gutierrez , Other Provider Active Start: August 20, 2024 [...] Start: August 21, 2024 Dr. Kaushik Brown , DO Emergency Provider Active Start: August 21, 2024 Dr. Saroj Gutierrez , DO Admit Provider Active Start: August 21, 2024 Dr. Saroj Gutierrez , Other Provider Active Start: August 21, 2024 [...] art: August 21, 2024 Dr. Froilan Dan , Other Provider Active Start: August 21, 2024 [...] Team Status: Active Member Role Status Dates Erickaole Freemanbee Primary Care Provider Active Thompson Hayden MD Emergency Provider Active Verito Devi MD Admit Provider, Other Provider Acti regulo Boo MD Attending Provider Active Team Status: Active Member Role Status Dates Erickaole Freemanbee Primary Care Provider Active Thompson Hayden MD Emergency Provider Active Verito Devi MD Admit Provider, Other Provider Acti ve Charisse Valencia MD Other Provider Active Armen Carl MD Other Provider Active [facility] Other Provider Active Judy Boo MD Attending Provider Active Team Status: Active Member Role Status Anoop Cassidy Primary Care Provider Active Thompson Hayden MD Emergency Provider Active Verito Devi MD Admit Provider, Other Provider Acti ve Charisse Valencia MD Other Provider Active Armen Carl MD Other Provider Active [facility] Other Provider Active Mary Beth Landaverde NP Attending Provider Active Team Status: Active Member Role Status Anoop Cassidy Primary Care Provider Active Thompson Hayden MD Emergency Provider Active Verito Devi MD Admit Provider, Other Provider Acti ve Armen Carl MD Other Provider Active Charisse Valencia MD Other Provider Active Judy Boo MD Attending Provider Active Team Status: Active Member Role Status Anoop Cassidy Primary Care Provider Active Thompson Hayden MD Emergency Provider Active Verito Devi MD Admit Provider, Other Provider Acti ve Charisse Valencia MD Other Provider Active Armen Carl MD Other Provider Active [facility] Other Provider Active BRANT Cabrera Attending Provider Active Team Status: Inactive Member Role Status Anoop Cassidy Primary Care Provider Active Thompson Hayden MD Emergency Provider Active Verito Devi MD Admit Provider, Attending Provider Active Charisse Valencia MD Other Provider Active Armen Carl MD Other Provider Active [facility] Other Provider Active Team Status: Active Member Role Status Anoop Stein Primary Care Provider Active Team Status: Active Member Role Status Anoop Cassidy Primary Care Provider Active Thompson Hayden MD Emergency Provider Active Naresh Sainz , Admit Provider, Other Provider Active Tello Lynch MD Attending Provider Active Team Status: Active Member Role Status Dates Ericka Cassidy Primary Care Provider Active Thompson Hayden MD Emergency Provider Active Naresh Sainz , Admit Provider, Attending Provider, Other Provider Active Team Status: Inactive Member Role Status Anoop Hayden MD Emergency Provider Active Naresh Sainz , Admit Provider, Attending Prov ider Active Devika Stein Primary Care Provider Active [facility] Other Provider Active Team Status: Active [...] October 13, 2024 Dr. Nick Coyle , DO Emergency [...] Active Start : October 14, 2024 Dr. John Rod , DO Attending Provider Active Start: October 14, 2024 [...] Team Status: Active Member Role Status Dates ABHISHEK SPRING MELY Primary Care Provider Active Start: October 16, 2024 Dr. Nick Coyle , DO Emergency Provider Activ e Start: October 16, 2024 Dr. Bisi Rivera , DO Admit Provider Active Start : October 16, 2024 Dr. Bisi Rivera , DO Other Provider Active Start : October 16, 2024 Dr. John Rod , DO Attending Provider Active Start: October 16, 2024 Dr. John Rod , DO Other Provider Active S tart: October 16, 2024 Team Status: Active Member Role Status Dates ABHISHEK SPRING MELY Primary Care Provider Active Start: October 17, 2024 Dr. Nick Coyle , DO Emergency Provider Activ e Start: October 17, 2024 Dr. Bisi Rivera , DO Admit Provider Active Start : October 17, 2024 Dr. Bisi Rivera , DO Other Provider Active Start : October 17, 2024 Dr. John Rod , DO Attending Provider Active Start: October 17, 2024 Dr. John Rod , DO Other Provider Active S tart: October 17, 2024 Team Status: Active Member Role/Relationship Status Dates MELY DUARTE Primary Care Provider Active Team Status: Inactive Member Role/Relationship Status Dates ABHISHEK SPRING MELY Primary Care Provider Active Start: October 13, [...] October 19, 2024 Team Status: Active Member Role/Relationship Status Dates ABHISHEK ST , MLEY Primary Care Provider Active Start: October 14, 2024 Dr. Nick Coyle , DO Emergency Provider Activ e Start: October 14, 2024 Dr. Bisi Rivera , DO Admit Provider Active Start : October 14, 2024 Dr. Bisi Rivera , DO Other Provider Active Start : October 14, 2024 Dr. John Rod , DO Attending Provider Active Start: October 14, 2024 Dr. John Rod , DO Other Provider Active S tart: October 14, 2024 Team Status: Active Member Role/Relationship Status Dates ABHISHEK SPRING , MELY Primary Care Provider Active Start: October 15, [...] October 15, 2024 Team Status: Active Member Role/Relationship Status Dates ABHISHEK SPRING , MELY Primary Care Provider Active Start: October 16, 2024 Dr. Nick Coyle , DO Emergency Provider Activ e Start: October 16, 2024 Dr. Bisi Rivera , DO Admit Provider Active Start : October 16, 2024 Dr. Bisi Rivera , DO Other Provider Active Start : October 16, 2024 Dr. John Rod , DO Attending Provider Active Start: October 16, 2024 Dr. John Rod , DO Other Provider Active S tart: October 16, 2024 Team Status: Active Member Role/Relationship Status Dates MELY DUARTE Primary Care Provider Active Start: October 17, 2024 Dr. Nick Coyle , DO Emergency Provider Activ e Start: October 17, 2024 Dr. Bisi Rivera , DO Admit Provider Active Start : October 17, 2024 Dr. Bisi Rivera , DO Other Provider Active Start : October 17, 2024 Dr. John Rod , DO Attending Provider Active Start: October 17, 2024 Dr. John Rod , DO Other Provider Active S tart: October 17, 2024 Team Status: Active Member Role/Relationship Status Dates MELY DUARTE Primary Care Provider Active Start: October 19, 2024 Dr. Nick Coyle , DO Emergency Provider Activ e Start: October 19, 2024 Dr. Bisi Rivera , DO Admit Provider Active Start : October 19, 2024 Dr. Bisi Rivera , DO Other Provider Active Start : October 19, 2024 Dr. Jocelyn Polk MD Attending Provider Active Start: October 19, 2024 Dr. Jocelyn Polk MD Other Provider Active Star t: October 19, 2024 Dr. John Rod , Other Provider Active S tart: October 19, 2024 Team Status: Active Member Role/Relationship Status Dates MELY DUARTE Primary Care Provider Active Start: January 06, 2025 Gene Monroy MD Emergency Provider Active Star t: January 06, 2025 Dr. Ute Hancock MD Admit Provider Active St art: January 06, 2025 Dr. Ute Hancock MD Attending Provider Active Start: January 06, 2025 Team Status: Inactive Member Role/Relationship Status Dates MELY DUARTE Primary Care Provider Active Start: January 06, 2025 End: January 10, 2025 Gene Monroy MD Emergency Provider Active Star t: January 06, 2025 End: January 10, 2025 Dr. Ute Hancock MD Admit Provider Active St art: January 06, 2025 End: January 10, 2025 Dr. Ute Hancock MD Other Provider Active St art: January 06, 2025 End: January 10, 2025 Dr. Mao Muse MD Attending Provider Active Start: January 06, 2025 End: January 10, 2025 Team Status: Active Member Role/Relationship Status Dates MELY DUARTE Primary Care Provider Active Start: January 07, 2025 Gene Monroy MD Emergency Provider Active Star t: January 07, 2025 Dr. Ute Hancock MD Admit Provider Active St art: January 07, 2025 Dr. Ute Hancock MD Other Provider Active St art: January 07, 2025 Dr. Mao Muse MD Attending Provider Active Start: January 07, 2025 Dr. Mao Muse MD Other Provider Active Sta rt: January 07, 2025 Team Status: Active Member Role/Relationship Status Dates ABHISHEK SPRING MELY Primary Care Provider Active Start: January 08, 2025 Gene Monroy MD Emergency Provider Active Star t: January 08, 2025 Dr. Ute Hancock MD Admit Provider Active St art: January 08, 2025 Dr. Ute Hancock MD Other Provider Active St art: January 08, 2025 Dr. Mao Muse MD Attending Provider Active Start: January 08, 2025 Dr. Mao Muse MD Other Provider Active Sta rt: January 08, 2025 Team Status: Active Member Role/Relationship Status Dates ABHISHEK spring MELY Primary Care Provider Active Start: January 09, 2025 Gene Monroy MD Emergency Provider Active Star t: January 09, 2025 Dr. Ute Hancock MD Admit Provider Active St art: January 09, 2025 Dr. Ute Hancock MD Other Provider Active St art: January 09, 2025 Dr. Mao Muse MD Attending Provider Active Start: January 09, 2025 Dr. Mao Muse MD Other Provider Active Sta rt: January 09, 2025 Team Status: Active Member Role/Relationship Status Dates ABHISHEK SPRING MELY Primary Care Provider Active Start: January 10, 2025 Gene Monroy MD Emergency Provider Active Star t: January 10, 2025 Dr. Ute Hancock MD Admit Provider Active St art: January 10, 2025 Dr. Ute Hancock MD Other Provider Active St art: January 10, 2025 Dr. Mao Muse MD Attending Provider Active Start: January 10, 2025 Dr. Mao Muse MD Other Provider Active Sta rt: January 10, 2025 Goals (unrecognized section and content) Goals may [...] BE BASED ON THE PRIMARY CLINICAL RECORDS. [facility] provides no warranty or guarantee of the accuracy or completeness of information in this document.
[2025-01-20 01:11] LABS: Mucous, Urine 0 SEEN /hpf (<or=2+); Squamous Epithelial Cells - UA 0 SEEN /hpf (0-5)
[2025-01-20 01:13] LABS: Hematocrit 32.7 % (40-54); Hemoglobin 10.6 g/dL (13.0-16.5); Immature Granulocytes Count 0.070 X10^3/uL (0.0-0.0); Mean Corp Hgb Conc 32.4 g/dL (32-36); Mean Corpuscular Volume 94.0 fL (80-94); Mean Platelet Vol. 9.2 fl (6.2-12.0); NRBC Flagged by Analyzer 0 % (0-5); Platelet Count 121 K/mm3 (150-450); RBC Distribution Width CV 15.2 % (11.6-14.6); RBC Distribution Width SD 52.3 fl (35.1-43.9); Red Blood Count 3.48 M/mm3 (4.6-6.2); White Blood Count 7.2 K/mm3 (4.4-11.0)
[2025-01-20 01:13] LABS: Color, Urine Yellow (Yellow); Glucose, Dipstick 1000 mg/dl (Normal); Ketone-Dipstick Negative (Negative); Leukocyte Esterase-Dipstick 500 /ul (Negative); Nitrite-Dipstick Negative (Negative); Occult Blood-Urine 250 /ul (Negative); Protein-Dipstick 100 mg/dl (Negative); Specific Gravity, Urine 1.015 (1.002-1.030); Urine Bilirubin Dipstick Negative (Negative)
--- NOTE | 2025-01-20 01:16 | RAD_ITS ---
PROCEDURE: CHEST 1 VIEW (PORTABLE) 01/20/2025 REASON FOR EXAM: WEAKNESS TECHNIQUE: Frontal view of the chest. COMPARISON: 01/06/2025. FINDINGS: Unremarkable cervical fusion metallic hardware. Unremarkable metallic prosthesis of the left shoulder. Interval appearance of mild bilateral basilar atelectatic pulmonary changes. There is no demonstrated pleural abnormality. Normal heart and pericardium. Normal mediastinum and clifford. Normal visualized pulmonary arteries. Normal visualized aortic arch and descending thoracic aorta. Normal visualized thoracic spine. Normal visualized ribs, clavicles, and shoulders. There is no demonstrated abnormality of the visualized soft tissue structures of the upper abdomen. RAD/Chest 1 View (Portable) IMPRESSION: Interval appearance of mild bilateral basilar atelectatic pulmonary changes. Reading [facility]
[2025-01-20 01:28] LABS: Red Blood Cells-Urine 5-10 SEEN /hpf (0-5)
[2025-01-20 01:39] LABS: Ammonia 15.6 umol/L (16-60)
[2025-01-20 01:46] LABS: AST(SGOT) 22 U/L (<=37); Alanine Aminotransfer ALT/SGPT 23 U/L (<=46); Albumin, Serum 3.1 g/dL (3.4-4.8); Alkaline Phosphatase 57 U/L (40-129); Anion Gap 10 (5-15); BUN 14 mg/dL (4-19); BUN/Creat Ratio 7.8 RATIO (10-20); Bilirubin, Direct 0.22 mg/dL (0.00-0.30); Calcium,Total 8.1 mg/dL (7.6-11.0); Carbon Dioxide 22.6 mmol/L (21.0-32.0); Chloride 103 mmol/L (98-108); Estimated Creatinine Clearance 46.86 ml/min (50-250); Globulin 2.8 g/dL (2.2-4.2); Glucose 239 mg/dL (70-99); Magnesium 2.1 mg/dL (1.5-2.2); Potassium 3.9 mmol/L (3.3-5.1); Procalcitonin 0.14 ng/mL (<=0.10)
[2025-01-20] MEDS: Lidocaine Jelly 2% 20 ML Syringe (URO-JET) 1 APPLIC TOPICAL (02:12)
--- NOTE | 2025-01-20 02:23 | PCM.HP.STD ---
HPI - General General Date of Admission: 01/20/25 Date of Service: 01/20/25 Chief Complaint: Confusion, falls, syncope. HPI Narrative The patient is a 74 y/o M w/ PMHx: Morbid obesity, CKD stage III unclear subtype per GFR trending, Diabetes mellitus type II with chronic neuropathy, Parkinson's disease with associated dementia of unclear extent with unclear behavioral disturbance history, Chronic normocytic anemia, HTN, HLD, Anxiety and Depression/mood disorder, Hypothyroidism, BPH with obstructive pathology, Gout who presents to the [facility] ED on 01/20/2025 with history of recent discharge from [place] following treatment for urinary tract infection with patient unfortunate increased weakness, debility and fall prompting EMS call however while they were even attempting to assist him in getting up with positional changes he had a syncopal event prompting transition to the ED for evaluation. reports that he was literally just discharged approximately noon on 01/19/2025 from the skilled facility. Workup in the ED included T97.7, heart rate 67, BP initially 80/50 with a MAP of 60, respiratory rate 12, 98% on room air with improvement to T97.5, heart rate 66, BP 118/61, respiratory rate 16, 99% on room air, CBC with WC 7.2, hemoglobin 10.6, MCV 94, platelet 121 with increased immature granulocytes, CMP with BUN/creatinine 14/1.83, GFR 38, glucose 239, lactic acid 3.2, hepatic profile not marked appearing, ammonia 15.6, procalcitonin 0.14, TSH 2.430, urinalysis concerning for UTI with cloudy appearing urine, specific gravity 1.015, protein 100, glucose thousand, occult blood 250, negative nitrite, leukocyte esterase 500 with urine RBCs 5-10 and urine WBCs 50-100 with 2+ urine bacteria, urine culture pending per ED, blood culture x 2 pending per ED, chest x-ray with interval appearance of a mild bilateral basilar atelectatic pulmonary changes. In the ED patient ministered 1 L normal saline (30 cc/kg ordered per ED physician, BP already increased after the 1st L), Rocephin 1 g IV x 1 and lidocaine Uro-Jet used to place Marx catheter given retention noted upon ED evaluation. [facility] Medical History BPH (benign prostatic hyperplasia) Hypothyroidism Anxiety and depression Chronic anemia Parkinsons disease HLD (hyperlipidemia) CKD (chronic kidney disease), stage III Insulin dependent diabetes mellitus Dementia Gout Diabetes HTN (hypertension) Home Medications ?Medication ?Instructions ?Recorded ?Last Taken ?Type allopurinol 100 mg tablet 100 mg PO DAILYCM gout 05/03/13 Unknown History donepezil 10 mg tablet 10 mg PO QHS dementia 03/18/24 Unknown History dulaglutide 3 mg/0.5 mL 3 mg subcut QWEEK diabetes 03/18/24 Unknown History subcutaneous pen injector (Trulicity) duloxetine 60 mg capsule,delayed 60 mg PO DAILY depression 03/18/24 Unknown History release empagliflozin 25 mg tablet 25 mg PO DAILY diabetes 03/18/24 Unknown History (Jardiance) ezetimibe 10 mg tablet 10 mg PO DAILY cholesterol 03/18/24 Unknown History glipizide 10 mg tablet, extended 10 mg PO DAILY diabetes 03/18/24 Unknown History release 24 hr levothyroxine 50 mcg tablet 50 mcg PO DAILY thyroid 03/18/24 Unknown History lisinopril 2.5 mg tablet 2.5 mg PO DAILY blood pressure 03/18/24 Unknown History pramipexole 0.125 mg tablet 0.125 mg PO BID parkinsons 03/18/24 Unknown History insulin glargine 100 unit/mL (3 75 unit subcut QPM diabetes 10/13/24 Unknown History mL) subcutaneous pen (Basaglar KwikPen U-100 Insulin) tamsulosin 0.4 mg capsule 0.4 mg PO DAILY urine flow 10/15/24 Unknown History gabapentin 800 mg tablet 400 mg (1/2 x 800 mg) PO TIDCM 10/19/24 Unknown Rx nerve pain #45 tabs quetiapine 50 mg tablet 50 mg PO DAILY mental health 01/07/25 Unknown History trazodone 50 mg tablet 100 mg PO QHS 01/07/25 Unknown History acetaminophen 325 mg tablet 650 mg (2 x 325 mg) PO Q4H PRN PRN 01/10/25 Unknown Rx Fever, pain 1-02/10 #0 tabs insulin lispro 100 unit/mL See Protocol subcut ACHS #0 mL 01/10/25 Unknown Rx subcutaneous pen (Humalog KwikPen (U-100) Insulin) sennosides 8.6 mg-docusate sodium 2 tab PO BID #0 tabs 01/10/25 Unknown Rx 50 mg tablet (Stimulant Laxative Plus) tramadol 50 mg tablet 50 mg PO TID pain 20 days #60 tabs 01/10/25 Unknown Rx Allergy/AdvReac Type Severity Reaction Status Date / Time ibuprofen AdvReac Abd Verified 01/06/25 18:17 cramps/diarrhea Family History Mother CVA (cerebral vascular accident) Heart disease Father CVA (cerebral vascular accident) Heart disease Surgical History History of left shoulder replacement H/O knee surgery Social History household members: spouse housing: house current occupational status: retired Smoking Status: Never smoker alcohol intake: never substance use type: does not use ROS ROS Narrative Admission Review of Systems: CONSTITUTIONAL: No weight loss, fever, chills, + weakness or fatigue. HEENT: Eyes: No visual loss, blurred vision, double vision or yellow sclerae. Ears, Nose, Throat: No hearing loss, sneezing, congestion, runny nose or sore throat. SKIN: No rash or itching, lesions except + occasional stage ecchymoses, abrasion, significant bilateral lower extremity venous stasis skin changes. CARDIOVASCULAR: + Syncopal event. No chest pain, chest pressure or chest discomfort, palpitations, edema, orthopnea. RESPIRATORY: No shortness of breath, cough or sputum, wheezing, hemoptysis. GASTROINTESTINAL: + Decreased appetite/anorexia. No nausea, vomiting or diarrhea, abdominal pain, melena, BRBPR. GENITOURINARY: + Urinary frequency chronically, retention noted in the ED. No dysuria or urgency. NEUROLOGICAL: + Lethargy/confusion, falls, debility, syncope, underlying history of Parkinson's disease with associated dementia. No headache, paralysis, ataxia, numbness or tingling in the extremities, focal weakness, change in bowel or bladder control, seizure. MUSCULOSKELETAL: No muscle, back pain, joint pain or stiffness. HEMATOLOGIC: + Chronic anemia, easy bleeding/bruising. LYMPHATICS: No enlarged nodes. No history of splenectomy. PSYCHIATRIC: + History of anxiety depression/mood disorder. ENDOCRINOLOGIC: No reports of sweating, cold or heat intolerance. No polyuria or polydipsia. ALLERGIES: No history of asthma, hives, eczema or rhinitis. Vital Signs Vital Signs Vital Signs: 01/20/25 00:22 01/20/25 00:22 01/20/25 00:31 Temperature 97.7 F L 97.9 F Temperature Source Oral Oral Pulse Rate 67 67 Respiratory Rate 12 16 Respiratory Effort Normal Non-Labored Respiratory Pattern Normal Blood Pressure 80/50 L 114/59 L Blood Pressure Mean 60 77 Pulse Ox 98 98 Oxygen Delivery Method Room Air Room Air 01/20/25 01:31 01/20/25 02:00 Temperature 97.5 F L 97.5 F L Temperature Source Oral Oral Pulse Rate 66 66 Respiratory Rate 16 17 Respiratory Effort Respiratory Pattern Blood Pressure 118/61 112/55 L Blood Pressure Mean 80 74 Pulse Ox 99 94 Oxygen Delivery Method Room Air Room Air Weight Weight: 289 lb 10.998 oz Body Mass Index (BMI) 42.7 Physical Exam Narrative Physical Examination: General: Patient awakens to stimuli, alert for short period and then quickly falls back asleep, lethargic, oriented to self and some recent events but does have underlying dementia of note, will follow some commands, seated upright in ED bed. Skin: Normal color, normal turgor, no icterus, no cyanosis except occasional stage ecchymoses, abrasion, significant bilateral lower extremity venous stasis skin changes. HEENT: AT/NC, EOMI, PERRLA, moderately dry MM, no carotid bruits or JVD noted. Lungs: Diminished, distant, likely secondary to habitus, greater bases, no evidence of any distress, no rales, ronchi or wheezing. Heart: Regular rate and rhythm; no gallop, rub audible. Abdomen: Soft, morbidly obese, no grimacing or discomfort with palpation, difficult to discern distention and HSM given habitus, distant BS. Extremities: No cyanosis, no clubbing, chronic lower extremity edema, see skin. Neurological: Patient awakens to stimuli, alert for short period and then quickly falls back asleep, lethargic, oriented as noted, cognitive function decreased from baseline although baseline is decreased with underlying dementia of note, pupils equally reactive to light and accommodation, cranial nerves grossly normal but difficult assessment given lethargy, spontaneously moving all 4 extremities, strength severely globally decreased. Psychiatric: Affect appears flat, lethargic, no acute evidence of depressive or anxiety feelings but does have underlying history. Results Lab / Micro Data 01/20/25 00:43 01/20/25 00:43 Labs: Laboratory Results - last 24 hr 01/20/25 00:43: WBC 7.2, RBC 3.48 L, Hgb 10.6 L, Hct 32.7 L, MCV 94.0, MCH 30.5, MCHC 32.4, RDW Std Deviation 52.3 H, RDW Coeff of Veronica 15.2 H, Plt Count 121 L, MPV 9.2, Immature Gran % (Auto) 1.000 H, Neut % (Auto) 60.8, Lymph % (Auto) 26.4, [place] % (Auto) 6.9, Eos % (Auto) 4.2, Baso % (Auto) 0.7, Absolute Neuts (auto) 4.4, Absolute Lymphs (auto) 1.89, Nucleated RBC % 0, Sodium 135, Potassium 3.9, Chloride 103, Carbon Dioxide 22.6, Anion Gap 10, BUN 14, Creatinine 1.83 H, Estim Creat Clear Calc 46.86 L, Est GFR (MDRD) Non-Af 38 L, BUN/Creatinine Ratio 7.8 L, Glucose 239 H, Lactic Acid 3.2 H*, Calcium 8.1, Magnesium 2.1, Total Bilirubin 0.46, Direct Bilirubin 0.22, AST 22, ALT 23, Alkaline Phosphatase 57, Ammonia 15.6 L, Total Protein 5.9, Albumin 3.1 L, Globulin 2.8, Procalcitonin 0.14 H, TSH 2.430 01/20/25 01:06: Urine Color Yellow, Urine Clarity Cloudy, Urine pH 6.0, Ur Specific [place] 1.015, Urine Protein 100 H, Urine Glucose (UA) 1000 H, Urine Ketones Negative, Urine Occult Blood 250 H, Urine Nitrite Negative, Urine Bilirubin Negative, Urine Urobilinogen Normal, Ur Leukocyte Esterase 500 H, Urine RBC 5-10 SEEN, Urine WBC 50-100 SEEN, Ur Squamous Epith Cells 0 SEEN, Ur Renal Epithelial Cell 5-10 SEEN, Urine Bacteria 2+, Urine Mucus 0 SEEN Imaging Radiology Impression Chest X-Ray 01/20/25 01:16 IMPRESSION: Interval appearance of mild bilateral basilar atelectatic pulmonary changes. Reading Location: [place] [id number] Assessment & Plan Assessment/Plan (1) Acute encephalopathy: PLAN: Plan The patient is a 74 y/o M w/ PMHx: Morbid obesity, CKD stage III unclear subtype per GFR trending, Diabetes mellitus type II with chronic neuropathy, Parkinson's disease with associated dementia of unclear extent with unclear behavioral disturbance history, Chronic normocytic anemia, HTN, HLD, Anxiety and Depression/mood disorder, Hypothyroidism, BPH with obstructive pathology, Gout who presents to the [facility] ED on 01/20/2025 with history of recent discharge from [place] following treatment for urinary tract infection with patient unfortunate increased weakness, debility and fall prompting EMS call however while they were even attempting to assist him in getting up with positional changes he had a syncopal event prompting transition to the ED for evaluation. #1. Acute encephalopathy, syncopal event with mechanical fall with adult failure to thrive with lactic acidosis and transient hypotension improved with IV fluids secondary to Acute Complicated Urinary Tract Infection with associated acute urinary retention complicated by underlying BPH with obstructive pathology: Will admit to PCU to continue to closely monitor blood pressure however improved in the ED with judicious IV fluids, UA upon ED evaluation remarkable, pending UCx, continue Marx catheter placement, continue judicious IVFs, will continue to cycle cardiac enzymes, monitor I/Os, continue IV Rocephin w/ transition as able pending sensitivities and speciation. Bld cx x 2 obtained in the ED. PT/OT/case management consulted for discharge planning. #2. Diabetes mellitus type II with hyperglycemia with chronic neuropathy: Hold oral home regimen, continue home insulin regimen, ADA diet, accu checks w/ ISS, continue home gabapentin regimen with alterations as needed for renal function alteration #3. Parkinson's disease with associated dementia, unclear exact extent with unclear behavioral disturbance history: Complicates presentation, maintain on fall and aspiration precautions, continue patient home pramipexole and donepezil regimen, PT/OT/case management consulted for discharge planning. #4. Chronic Kidney Disease Stage III, unclear subtype per GFR trending: Admission BUN/Cr 14/1.83, GFR 38, baseline renal function primarily 1.6-1.9 but is vacillated, most recently prior to current presentation 01/18/2025 creatinine 1.47, and appears primarily 1.6-1.7 range repeat BMP in AM. #5. Chronic normocytic anemia: Admission hemoglobin 10.6, MCV 94, does appear to vacillate intermittently, more recently in the beginning of the month 11-12 range however previous to this was 13-14 range but prior to this in August had again been 10-12 range, will continue to trend CBC. #6. Hypertension: Patient with hypotension upon presentation, improved with judicious IV fluids, will temporally hold all hypertensive regimen, resume once clinically appropriate. #7. Hyperlipidemia: Will continue patient home Zetia regimen. #8. Anxiety and depression/mood disorder: Will continue patient home duloxetine, temporally hold higher dose trazodone nightly regimen until mental status improves. #9. Hypothyroidism: Will continue patient home levothyroxine regimen. #10. Morbid Obesity: Weight loss and lifestyle changes encouraged. #11. BPH with obstructive pathology: As noted Marx catheter in the ED needed to be placed secondary to retention, will continue Flomax regimen and intervention as noted above. #12. Gout: Will continue patient home allopurinol regimen. #13. DVT prophylaxis: Lovenox. #14. CODE status: Patient FRANK is his who is present and living will is currently in place. Discussed CODE status at length including difference between FULL code, DNR-CCA and DNR-CC status. Following discussions about the differences in these status, requested DNR CCA and with further clarification of allowance of intubation. also notes that she would be amenable to central line/PICC line if necessary and pressor therapy. Advanced Care Planning Face to Face Time: 16 minutes. Charges/Coding Visit Charges Inpatient E&M: 67256 Init Hosp L3 Procedures Hospitalists Procedures: 63220 Advncd Care Plan 30 Min
--- OUTSIDE RECORDS SUMMARY | 2025-01-20 02:40 | XMS RPT_ITS | CCD ---
Author Organization [facility] CliniSyri Care Team Providers Care Medical Manager Name Role Phone MAO ABBASI Unavailable [...] Attending Unavailable Ericka Cassidy Primary Care Provider [phone] MD Thompson Hayden Emergency Provider MD Verito Devi I Admit Provider MD Verito Devi I Attending Provider Ericka Cassidy Primary Care Provider MD Thompson Hayden Emergency Provider MD Verito Devi I Admit Provider MD Verito Devi I Attending Provider MD Charisse Valencia Other Provider MD Armen Carl Other Provider [facility] Other Provider Eisestefania, Naresh E Admit Provider Eisenhart, Naresh E Attending Provider Devika Stein Primary Care Provider [facility] [place] Other Provider DEVIKA STEIN Primary Care Unavailable DEVIKA STEIN Attending Unavailable PROVIDER, UNKNOWN Surgeon Unavailable ERICKA CASSIDY Primary Care Unavailabl e KINNEAR, CHRISTOPHER Admitting Unavaila ble KINNEAR, CHRISTAALIYAH Attending Unavaila ble PROVIDER, UNKNOWN Surgeon Unavailable PROVIDER, UNKNOWN Surgeon Unavailable Errol Silva Referring Unavailable Errol Silva Attending Unavailable Eisestefania, Naresh E Admitting Unavailable Eisestefania Naresh E Attending Unavailable Stein Devika Primary Care Unavailable [facility] [place] Consulting Unavailable Ericka Cassidy Primary Care Unavailable Verito Devi I Admitting Unavailable Verito Devi I Attending Unavailable Charisse Valencia Consulting Unavailable Armen Carl Consulting Unavailable [facility] Consulting Unavailable Care Physician, No Primary Primary Care Provider Unavailable Dr. Kaushik Brown DO Emergency Provider Dr. Saroj Gutierrez DO Admit Provider Dr. Saroj Gutierrez DO Attending Provider Dr. Saroj Gutierrez DO Other Provider [phone] Micha KRUSE, Dr. Cavanaugh Attending Provider Elmo KRUSE, Dr. Javed Other Provider Ruben KRUSE, Dr. Churchill Other Provider [facility] Primary Care Provider [phone] Micha KRUSE, Dr. Cavanaugh Other Provider Damaris KRUSE, Dr. Wilson Other Provider Yahaira KRUSE, Dr. Pink Other Provider Dawson KRUSE, Dr. Malagon Other Provider Dr. Lance Bonner DO Other Provider Morgan KRUSE, Dr. Darnell Brito Other Provider [phone] Andrzej KRUSE, Dr. Palmer Other Provider [phone] Kelsey KRUSE, Dr. Viera Other Provider [phone] Jin KRUSE, Dr. Gallagher Other Provider [phone] Shayy KRUSE, Dr. Vaca Other Provider [phone] Evan KRUSE, Dr. Gale Other Provider [phone] Onel KRUSE, Dr. Faulkner Other Provider [phone] Parker KRUSE, Dr. Roberts Other Provider Ladi KRUSE, Dr. Lowe Other Provider Unavailabl beth Vasquez MD, Dr. Turpin Other Provider [phone] Rahel KRUSE, Dr. Gross Other Provider Mary KRUSE, Dr. Epstein Other Provider [phone] Korin KRUSE, Dr. Garcia Other Provider Monik MARCOS, Dr. Goldstein Other Provider Rachel KRUSE, Dr. Osullivan Other Provider [phone] Dr. Migue Owens MD Other Provider [phone] Froilan Dan DO Other Provider Tim KRUSE, Dr. Garcia Other Provider Hemant KRUSE, Dr. Henry Other Provider Dr. Nick Coyle DO Emergency Provider Dr. Bisi Rivera DO Admit Provider Dr. Bisi Rivera DO Attending Provider [phone] Dr. Bisi Rivera DO Other Provider Jam KRUSE, Dr. Banks Attending Provider Viola MARCOS, Dr. Lopez Other Provider Tereletsmanuel DO, Dr. Lopez Attending Provider [employer] MODELER, ABHISHEK Primary Care Provider [phone] Jma KRUSE, Dr. Banks Other Provider Porfirio KRUSE, [...] Attending Unavailable Saroj Gutierrez Admitting Unavailable Mao Muse Attending Unavailable Care Physician, No Primary Primary [...] Borrego Consulting Unavailable Kerline Miranda Consulting Unavailable [facility] Primary Care Unavailable Bisi Rivera Attending Unavailable [facility] Primary Care Unavailable Ute Hancock Consulting Unavailable Ute Hancock Admitting Unavailable Mao Muse Attending Unavailable Allergies Allergy Classification Reported Allergen(s) Allergy Type Date of Onset Reaction(s) Facility (16 sources) ibuprofen; Translations: [Ibuprofen] drug allergy 06-02-2022 [facility] (3 sources) Ibuprofen Drug Allergy 07-02-2021 [facility] Repository Medications Current Medications Medication Drug [...] 12:00am docusate sodium 50 mg / sennosides, retirement 8.6 mg oral tablet (1 source) Start: [...] Start: 11-24-2017 take 2 tablets by mo [facility] once daily Glipizide (Glucotrol) 5 MG [...] 01, 2022 12:00am June 01, 2022 1:15am Acamucvi-Efx-Mu-Lyc open-Lutein (Centrum Silver Tablet) 1 EACH tablet (2 sources) Start: 05-03-2013 Nuttiqoo-Cbf-Yg-Ly copen-Lutein (Centrum Silver Tablet) 1 EACH tablet Active 1 NMA PO DAILY May 03, 2013 1:00am Start: 05-03-2013 Tsvvdste-Ggt-T d-Fjxuozq-Pksnwc (Centrum Silver Tablet) 1 EACH tablet Active 1 EACH PO DAILY May 03, 2013 1:00am polyethylene glycol 3350 83284 mg powder for oral solution (2 sources) [...] 24, 2017 11:00pm May 17, 2018 3:05pm [id number] 200 actuat albuterol 0.09 mg/actuat metered dose [...] March 18, 2024 1:02pm 168 hr cloNIDine 0.41715 mg/hr transdermal system (8 sources) Central alpha-2 [...] meals blood sugar blood sugar Oral Active Ptobuqwc-Whl-Ie-Lycopen-Lute in (Centrum Silver) 1 EACH tablet (8 sources) Start: 11-24-2017 End: 04-19-2022 take 1 tablet by mouth once daily Uzlkfqij-Anj-Kz-Lycopen-Lutein (Centrum Silver) 1 EACH tablet Discontinued 1 EACH PO Daily November 23, 2017 11:00pm April 19, 2022 12:42am Start: 05-03-2013 take 1 tablet by brooks th once daily Zsdcomre-Qiq-Yr-Lycopen-Lutein (Centrum Silver) 1 EACH tablet Active 1 NMA PO DAILY May 03, 2013 1:00am vitamin Start: 05-03-2013 take 1 tablet by brooks th once daily Rwoyrjvq-Jqx-Ho-Lycopen-Lutein (Centrum Silver) 1 EACH tablet Active 1 [...] sources) Long-term current use of anticoagulant; 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 If you have any issues with your scheduled time please contact them at [phone]. Unclassified (3 sources) Please call [phone] to schedule your in home appointment. Unclassified [...] Onset: 07-02-2021 Episodic Other aftercare (2 sources) care home (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 of anticoagulants; Translations: [Long-term (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 of anticoagulants] Onset: 07-02-2021 04-23-2022 Episodic Other aftercare (1 source) Other [facility] (current) drug therapy; Translations: [OTHER MUD BOSS (CURRENT) DRUG THERAPY] Onset: 07-02-2021 Episodic Other [...] 01-10-2025 Anion gap [Moles/Vol] 11 mmol/L - [facility] BUN/creatinine ratioOrdered By: Mao Muse on 01-10-2025 Urea nitrogen/Creatinine [Mass ratio] 9.1 mg/mg Low 02-20 [facility] Basic Metabolic Profile (BMP )on 01-10-2025 BUN/CRE 9.1 RATIO Low 02-20 [facility] Comment on above: Performed By: #### L 500.2500 ####[facility] [address] [place], [address] Calcium [Mass/Vol] 8.3 mg/dL Normal 7.6-11.0 [facility] Comment on above: Performed By: #### L 500.2500 ####[facility] [address] [place], [address] Chloride [Moles/Vol] 102 mmol/L Normal 98-108 [facility] Comment on above: Performed By: #### L 500.2500 ####[facility] [address] [place], [address] CO2 [Moles/Vol] 22.3 mmol/L Normal 21.0-32.0 [facility] Comment on above: Performed By: #### L 500.2500 ####[facility] [address] [place], [address] Creatinine [Mass/Vol] 1.61 mg/dL High 0.70-1.20 [facility] Comment on above: Performed By: #### L 500.2500 ####[facility] [address] [place], [address] ECRCL 53.12 ml/min Normal 50-250 [facility] Comment on above: Performed By: #### L 500.2500 ####[facility] [address] [place], [address] GAP 11 Normal 5-15 [facility] Comment on above: Performed By: #### L 500.2500 ####[facility] [address] [place], [address] GFR/1.73 sq M.predicted among non-blacks MDRD (S/P/Bld) [Vol rate/Area] 44 mL/min/{1.73_m2} Low >60 [facility] Comment on above: Result Comment: mL/m in/1.73m2 CKD-EPI Creatinine Equation (2020) Performed By: #### L 500.2500 ####[facility] [address] [place], [address] Glucose [Mass/Vol] 140 mg/dL High 70-99 [facility] Comment on above: Performed By: #### L 500.2500 ####[facility] [address] [place], [address] Potassium [Moles/Vol] 3.8 mmol/L Normal 3.3-5.1 [facility] Comment on above: Performed By: #### L 500.2500 ####[facility] [address] [place], [address] Sodium [Moles/Vol] 136 mmol/L Normal 133-145 [facility] Comment on above: Performed By: #### L 500.2500 ####[facility] [address] [place], [address] Urea nitrogen [Mass/Vol] 15 mg/dL Normal 4-19 [facility] Comment on above: Performed By: #### L 500.2500 ####[facility] [address] [place], [address] Bedside Glucoseon 01-10-2025 FINGERSTICK GLU 181 mg/dL High 74-106 [facility] Comment on above: Result Comment: NITZA GEMENT OF PATIENT CARE PER NURSING PROTOCOL Performed By: #### L 501.080 ####[facility] [address] [place], [address] FINGERSTICK GLU 149 mg/dL High 74-106 [facility] Comment on above: Result Comment: NITZA GEMENT OF PATIENT CARE PER NURSING PROTOCOL Performed By: #### L 501.080 ####[facility] [address] [place], [address] Carbon dioxide, total [Moles /volume] in Central venous bloodOrdered By: Mao Muse on 01-10-2025 CO2 [Moles/Vol] 22.3 mmol/L 21.0-32.0 [facility] Chloride assayOrdered By: Aarti Muse on 01-10-2025 Chloride [Moles/Vol] 102 mmol/L 98-108 [facility] Glomerular filtration rate ( GFR) estimation/1.73 sq m using serum, plasma, or whole bOrdered By: Mao Muse on 01-10-2025 GFR/1.73 sq M.predicted among non-blacks MDRD (S/P/Bld) [Vol rate/Area] 44 mL/min/{1.73_m2} Low >60 [facility] Comment on above: mL/min/1.73m2 CKD-EP I Creatinine Equation (2020) Glucose measurement at bedsi deOrdered By: Mao Muse on 01-10-2025 Glucose [Mass/Vol] 181 mg/dL High 74-106 [facility] Comment on above: MANAGEMENT OF PATIEN T CARE PER NURSING PROTOCOL Potassium measurement (mass/ volume)Ordered By: Mao Muse on 01-10-2025 Potassium (Unsp spec) [Mass/Vol] 3.8 mmol/L 3.3-5.1 [facility] Serum creatinine measurement (mass/volume)Ordered By: Mao Muse on 01-10-2025 Creatinine [Mass/Vol] 1.61 mg/dL High 0.70-1.20 [facility] Serum glucose measurement (m ass/volume)Ordered By: Mao Muse on 01-10-2025 Glucose [Mass/Vol] 140 mg/dL High 70-99 [facility] Serum or plasma calcium maricel urement (mass/volume)Ordered By: Mao Muse on 01-10-2025 Calcium [Mass/Vol] 8.3 mg/dL 7.6-11.0 [facility] Serum or plasma urea nitroge n measurement (mass/volume)Ordered By: Mao Muse on 01-10-2025 Urea nitrogen [Mass/Vol] 15 mg/dL 4-19 [facility] Sodium levelOrdered By: Ericka Muse on 01-10-2025 Sodium [Moles/Vol] 136 mmol/L 133-145 [facility] Urine Cultureon 01-10-2025 URC #2 Below infection level. Urine Culture Yeast, not Callie albicans [place] Count 25,000-50,000 Yeast, not Callie albicans Yeast, not Callie albicans Normal [facility] Comment on above: Performed By: #### M 100.2200 ####[facility] [address] [place], [place], [address] Bedside Glucoseon 01-09-2025 FINGERSTICK GLU 145 mg/dL High 74-106 [facility] Comment on above: Result Comment: NITZA NGUYEN OF PATIENT CARE PER NURSING PROTOCOL Performed By: #### L 501.080 ####[facility] [address] [place], [address] FINGERSTICK GLU 177 mg/dL High 74-106 [facility] Comment on above: Result Comment: NITZA GEMENT OF PATIENT CARE PER NURSING PROTOCOL Performed By: #### L 501.080 ####[facility] [address] [place], [address] FINGERSTICK GLU 206 mg/dL High [address] [facility] Comment on above: Result Comment: NITZA GEMENT OF PATIENT CARE PER NURSING PROTOCOL Performed By: #### L 501.080 ####[facility] [address] [place], [address] FINGERSTICK GLU 144 mg/dL High [facility]106 [facility] Comment on above: Result Comment: NITZA GEMENT OF PATIENT CARE PER NURSING PROTOCOL Performed By: #### L 501.080 ####[facility] [address] [place], [address] Bedside Glucoseon 01-08-2025 FINGERSTICK GLU 225 mg/dL High -[address] [place] [address] Comment on above: Result Comment: NITZA GEMENT OF PATIENT CARE PER NURSING PROTOCOL Performed By: #### L 501.080 ####[facility] [address] [place], [address] FINGERSTICK GLU 174 mg/dL High [address] [place] [address] Comment on above: Result Comment: NITZA GEMENT OF PATIENT CARE PER NURSING PROTOCOL Performed By: #### L 501.080 ####[facility] [address] [place], [address] FINGERSTICK GLU 206 mg/dL High [facility]106 [facility] Comment on above: Result Comment: NITZA GEMENT OF PATIENT CARE PER NURSING PROTOCOL Performed By: #### L 501.080 ####[facility] [address] [place], [address] FINGERSTICK GLU 224 mg/dL High [address] [place] [address] Comment on above: Result Comment: NITZA GEMENT OF PATIENT CARE PER NURSING PROTOCOL Performed By: #### L 501.080 ####[facility] [address] [place], [address] Absolute lymphocyte countOrd ered By: Ute White on 01-07-2025 Lymphocytes Auto (Unsp spec) [#/Vol] 1.90 10*3/uL 0.83-4.51 [facility] Absolute neutrophil countOrd ered By: White on 01-07-2025 Neutrophils (Bld) [#/Vol] 4.7 10*3/uL 2.0-7.7 [facility] Automated lymphocyte count a s percentage of total leukocytesOrdered By: White on 01-07-2025 Lymphocytes/100 WBC Auto (Unsp spec) 25.2 % 19-41 [facility] Basophil percentageOrdered B y: White on 01-07-2025 Basophils/100 WBC (Bld) 0.7 % 0-1 [facility] Bedside Glucoseon 01-07-2025 FINGERSTICK GLU 125 mg/dL High 74-106 [facility] Comment on above: Result Comment: NITZA GEMENT OF PATIENT CARE PER NURSING PROTOCOL Performed By: #### L 501.080 ####[facility] [address] [facility] [address] FINGERSTICK GLU 163 mg/dL High 74-106 [facility] Comment on above: Result Comment: NITZA GEMENT OF PATIENT CARE PER NURSING PROTOCOL Performed By: #### L 501.080 ####[facility] [address] [facility] [address] FINGERSTICK GLU 113 mg/dL High 74-106 [facility] Comment on above: Result Comment: NITZA GEMENT OF PATIENT CARE PER NURSING PROTOCOL Performed By: #### L 501.080 ####[facility] [address] [facility] [address] FINGERSTICK GLU 132 mg/dL High 74-106 [facility] Comment on above: Result Comment: NITZA GEMENT OF PATIENT CARE PER NURSING PROTOCOL Performed By: #### L 501.080 ####[facility] [address] [place], [address] FINGERSTICK GLU 135 mg/dL High 74-106 [facility] Comment on above: Result Comment: NITZA NGUYEN OF PATIENT CARE PER NURSING PROTOCOL Performed By: #### L 501.080 ####[facility] [address] [place], [address] Bilirubin, totalOrdered By: Ute Hancock on 01-07-2025 Bilirubin [Mass/Vol] 0.59 mg/dL 0.00-1.30 [facility] CBC W/Diff, Automatedon Absolute Lymph 1.90 X10 3/uL Normal 0.83-4.51 [facility] Comment on above: Performed By: #### L 100.0100, L500.4050 ####[facility] [address] [place], [address] Absolute Neut 4.7 X10 3/uL Normal 2.0-7.7 [facility] Comment on above: Performed By: #### L 100.0100, L500.4050 ####[facility] [address] [place], [address] Basophils/100 WBC (Bld) 0.7 % Normal 0-1 [facility] Comment on above: Performed By: #### L 100.0100, L500.4050 ####[facility] [address] [place], [address] Eosinophils/100 WBC (Bld) 3.2 % Normal 0-5 [facility] Comment on above: Performed By: #### L 100.0100, L500.4050 ####[facility] [address] [place], [address] Erythrocyte distribution width (RBC) [Ratio] 15.0 % High 11.6-14.6 [facility] Comment on above: Performed By: #### L 100.0100, L500.4050 ####[facility] [address] [place], [address] Hematocrit (Bld) [Volume fraction] 36.7 % Low 40-54 [facility] Comment on above: Performed By: #### L 100.0100, L500.4050 ####[facility] [address] [place], [address] Hemoglobin (Bld) [Mass/Vol] 12.2 g/dL Low 13.0-16.5 [facility] Comment on above: Performed By: #### L 100.0100, L500.4050 ####[facility] [address] [place], [address] IG% 0.700 Normal 0.0-0.9 [facility] Comment on above: Result Comment: IG% - Immature Granulocytes (promyelocytes, myelocytes andmetamyelocytes) > 1% indicates that a LEFT SHIFT is Present. Performed By: #### L 100.0100, L500.4050 ####[facility] [address] [place], [address] Lymphocytes/100 WBC (Bld) 25.2 % Normal 19-41 [facility] Comment on above: Performed By: #### L 100.0100, L500.4050 ####[facility] [address] [place], [address] MCH (RBC) [Entitic mass] 30.5 pg Normal 27.0-32.0 [facility] Comment on above: Performed By: #### L 100.0100, L500.4050 ####[facility] [address] [place], [address] MCHC (RBC) [Mass/Vol] 33.2 g/dL Normal 32-36 [facility] Comment on above: Performed By: #### L 100.0100, L500.4050 ####[facility] [address] [place], [address] MCV (RBC) [Entitic vol] 91.8 fL Normal 80-94 [facility] Comment on above: Performed By: #### L 100.0100, L500.4050 ####[facility] [address] [place], [address] Monocytes/100 WBC (Bld) 8.5 % Normal 0-10 [facility] Comment on above: Performed By: #### L 100.0100, L500.4050 ####[facility] [address] [place], [address] Neutrophils/100 WBC (Bld) 61.7 % Normal 47-70 [facility] Comment on above: Performed By: #### L 100.0100, L500.4050 ####[facility] [address] [place], [address] Nucleated RBC (Bld) [#/Vol] 0 10*3/uL Normal 0-5 [facility] Comment on above: Performed By: #### L 100.0100, L500.4050 ####[facility] [address] [place], [address] Platelet mean volume (Bld) [Entitic vol] 9.0 fL Normal 6.2-12.0 [facility] Comment on above: Performed By: #### L 100.0100, L500.4050 ####[facility] [address] [place], [address] Platelets (Bld) [#/Vol] 112 10*3/uL Low 150-450 [facility] Comment on above: Performed By: #### L 100.0100, L500.4050 ####[facility] [address] [place], [address] RBC (Bld) [#/Vol] 4.00 10*6/uL Low 4.6-6.2 [facility] Comment on above: Performed By: #### L 100.0100, L500.4050 ####[facility] [address] [place], [address] RDW SD 51.2 fl High 35.1-43.9 [facility] Comment on above: Performed By: #### L 100.0100, L500.4050 ####[facility] [address] [place], [address] WBC (Bld) [#/Vol] 7.5 10*3/uL Normal 4.4-11.0 [facility] Comment on above: Performed By: #### L 100.0100, L500.4050 ####[facility] [address] [place], [address] Comprehensive Metabolic Prof ilon 01-07-2025 Albumin [Mass/Vol] 3.5 g/dL Normal 3.4-4.8 [facility] Comment on above: Performed By: #### L 100.0100, L500.4050 ####[facility] [address] [place], [address] Albumin/Globulin [Mass ratio] 1.0 {ratio} Normal 0.9-2.4 [facility] Comment on above: Performed By: #### L 100.0100, L500.4050 ####[facility] [address] [place], [address] ALK PHOS 72 U/L Normal 40-129 [facility] Comment on above: Performed By: #### L 100.0100, L500.4050 ####[facility] [address] [place], [address] ALT [Catalytic activity/Vol] 12 U/L Normal <=46 [facility] Comment on above: Performed By: #### L 100.0100, L500.4050 ####[facility] [address] [place], [address] AST [Catalytic activity/Vol] 16 U/L Normal <=37 [facility] Comment on above: Performed By: #### L 100.0100, L500.4050 ####[facility] [address] [place], [address] Bilirubin [Mass/Vol] 0.59 mg/dL Normal 0.00-1.30 [facility] Comment on above: Performed By: #### L 100.0100, L500.4050 ####[facility] [address] [place], [address] BUN/CRE 12.3 RATIO Normal 10-20 [facility] Comment on above: Performed By: #### L 100.0100, L500.4050 ####[facility] [address] [place], [address] Calcium [Mass/Vol] 8.8 mg/dL Normal 7.6-11.0 [facility] Comment on above: Performed By: #### L 100.0100, L500.4050 ####[facility] [address] [place], [address] Chloride [Moles/Vol] 104 mmol/L Normal 98-108 [facility] Comment on above: Performed By: #### L 100.0100, L500.4050 ####[facility] [address] [place], [address] CO2 [Moles/Vol] 20.6 mmol/L Low 21.0-32.0 [facility] Comment on above: Performed By: #### L 100.0100, L500.4050 ####[facility] [address] [place], [address] Creatinine [Mass/Vol] 1.72 mg/dL High 0.70-1.20 [facility] Comment on above: Performed By: #### L 100.0100, L500.4050 ####[facility] [address] [place], [address] ECRCL 49.59 ml/min Low 50-250 [facility] Comment on above: Performed By: #### L 100.0100, L500.4050 ####[facility] [address] [place], [address] GAP 11 Normal 5-15 [facility] Comment on above: Performed By: #### L 100.0100, L500.4050 ####[facility] [address] [place], [address] GFR/1.73 sq M.predicted among non-blacks MDRD (S/P/Bld) [Vol rate/Area] 41 mL/min/{1.73_m2} Low >60 [facility] Comment on above: Result Comment: mL/m in/1.73m2 CKD-EPI Creatinine Equation (2020) Performed By: #### L 100.0100, L500.4050 ####[facility] [facility] [address] [place], [address] Globulin (S) [Mass/Vol] 3.4 g/dL Normal 2.2-4.2 [facility] Comment on above: Performed By: #### L 100.0100, L500.4050 ####[facility] [address] [place], [address] Glucose [Mass/Vol] 118 mg/dL High 70-99 [facility] Comment on above: Performed By: #### L 100.0100, L500.4050 ####[facility] [address] [place], [address] Potassium [Moles/Vol] 4.1 mmol/L Normal 3.3-5.1 [facility] Comment on above: Performed By: #### L 100.0100, L500.4050 ####[facility] [address] [place], [address] Sodium [Moles/Vol] 135 mmol/L Normal 133-145 [facility] Comment on above: Performed By: #### L 100.0100, L500.4050 ####[facility] [address] [place], [address] T PROT 6.9 g/dL Normal 5.9-8.4 [facility] Comment on above: Performed By: #### L 100.0100, L500.4050 ####[facility] [address] [place], [address] Urea nitrogen [Mass/Vol] 21 mg/dL High 4-19 [facility] Comment on above: Performed By: #### L 100.0100, L500.4050 ####[facility] [address] [place], [address] Eosinophil percentageOrdered By: White on 01-07-2025 Eosinophils/100 WBC (Bld) 3.2 % 0-5 [facility] Erythrocyte distribution wid th ratioOrdered By: on 01-07-2025 Erythrocyte distribution width (RBC) [Ratio] 15.0 % High 11.6-14.6 [facility] Erythrocyte distribution wid th standard deviationOrdered By: on 01-07-2025 Erythrocyte distribution width (RBC) [Ratio] 51.2 fl High 35.1-43.9 [facility] Hematocrit Auto (Bld) [Volum e fraction]Ordered By: White on 01-07-2025 Hematocrit (Bld) [Volume fraction] 36.7 % Low 40-54 [facility] Hemoglobin measurementOrdere d By: on 01-07-2025 Hemoglobin (Bld) [Mass/Vol] 12.2 g/dL Low 13.0-16.5 [facility] Immature granulocytes/100 WB C Auto (Bld)Ordered By: on 01-07-2025 Immature granulocytes/100 WBC (Bld) 0.700 % 0.0-0.9 [facility] Comment on above: IG% - Immature Granu locytes (promyelocytes, myelocytes and metamyelocytes) > 1% indicates that a LEFT SHIFT is Present. Laboratory - Chemistry and C hemistry - challengeOrdered By: Ute Hancock on 01-07-2025 AST [Catalytic activity/Vol] 16 U/L <38 [facility] MCV (mean corpuscular volume ) determinationOrdered By: Ute Santi on 01-07-2025 MCV (RBC) [Entitic vol] 91.8 fL 80-94 [facility] Mean corpuscular hemoglobin (MCH) determinationOrdered By: Santi on 01-07-2025 MCH (RBC) [Entitic mass] 30.5 pg 27.0-32.0 [facility] Mean corpuscular hemoglobin concentration (MCHC) determinationOrdered By: Ute Santi on 01-07-2025 MCHC (RBC) [Mass/Vol] 33.2 g/dL 32-36 [facility] Mean platelet volume determi nationOrdered By: Ute Santi on 01-07-2025 Platelet mean volume (Bld) [Entitic vol] 9.0 fL 6.2-12.0 [facility] Monocyte percentageOrdered B y: Ute Santi on 01-07-2025 Monocytes/100 WBC (Bld) 8.5 % 0-10 [facility] Neutrophil percentageOrdered By: White on 01-07-2025 Neutrophils/100 WBC (Bld) 61.7 % 47-70 [facility] Nucleated red blood cell per centageOrdered By: Ute Santi on 01-07-2025 Nucleated RBC/100 WBC (Bld) [Ratio] 0 % 0-5 [facility] Platelet countOrdered By: Fela berhaneanjum Hancock on 01-07-2025 Platelets (Bld) [#/Vol] 112 10*3/uL Low 150-450 [facility] RBC Auto (Bld) [#/Vol]Ordere d By: Ute White on 01-07-2025 RBC (Bld) [#/Vol] 4.00 10*6/uL Low 4.6-6.2 [facility] Serum globulin measurementOr dered By: Ute Hancock on 01-07-2025 Globulin (S) [Mass/Vol] 3.4 g/dL 2.2-4.2 [facility] Serum or plasma alanine wylie otransferase (ALT) measurementOrdered By: Ute Hancock on 01-07-2025 ALT [Catalytic activity/Vol] 12 U/L <47 [facility] Serum or plasma albumin maricel urement (mass/volume)Ordered By: Ute Hancock on 01-07-2025 Albumin [Mass/Vol] 3.5 g/dL 3.4-4.8 [facility] Serum or plasma albumin/glob ulin mass ratioOrdered By: Ute Santi on 01-07-2025 Albumin/Globulin [Mass ratio] 1.0 {ratio} 0.9-2.4 [facility] Serum or plasma alkaline ivan sphatase measurementOrdered By: Ute Santi on 01-07-2025 ALP [Catalytic activity/Vol] 72 U/L 40-129 [facility] Total proteinOrdered By: Aut cristinan Santi on 01-07-2025 Protein [Mass/Vol] 6.9 g/dL 5.9-8.4 [facility] White blood cell (WBC) count Ordered By: Ute Hancock on 01-07-2025 WBC (Bld) [#/Vol] 7.5 10*3/uL 4.4-11.0 [facility] Absolute lymphocyte countOrd ered By: Gene Monroy on 01-06-2025 Lymphocytes Auto (Unsp spec) [#/Vol] 1.64 10*3/uL 0.83-4.51 [facility] Absolute neutrophil countOrd ered By: Gene Monroy on 01-06-2025 Neutrophils (Bld) [#/Vol] 5.6 10*3/uL 2.0-7.7 [facility] Ammoniaon 01-06-2025 Ammonia (P) [Moles/Vol] 12.8 umol/L Low 16-60 [facility] Comment on above: Performed By: #### L 100.0100, L500.4050, L503.5510 ####[facility] [address] [place], [address] Anion gap in Serum or Plasma Ordered By: Gene Monroy on 01-06-2025 Anion gap [Moles/Vol] 12 mmol/L 5-15 [facility] Automated lymphocyte count a s percentage of total leukocytesOrdered By: Gene Monroy on 01-06-2025 Lymphocytes/100 WBC Auto (Unsp spec) 20.3 % - [facility] BUN/creatinine ratioOrdered By: Gene Monroy on 01-06-2025 Urea nitrogen/Creatinine [Mass ratio] 12.9 mg/mg 10- [facility] Basophil percentageOrdered B y: Gene Monroy on 01-06-2025 Basophils/100 WBC (Bld) 0.7 % 0-1 [facility] Bilirubin Test strip Ql (U)O rdered By: Gene Monroy on 01-06-2025 Bilirubin Ql (U) Negative Negative [facility] Bilirubin, totalOrdered By: Gene Monroy on 01-06-2025 Bilirubin [Mass/Vol] 0.56 mg/dL 0.00-1.30 [facility] Brain/Head without Contrasto n 01-06-2025 Brain/Head without Contrast Normal [facility] CBC W/Diff, Automatedon Absolute Lymph 1.64 X10 3/uL Normal 0.83-4.51 [facility] Comment on above: Performed By: #### L 100.0100, L500.4050, [id number] ####[facility] [address] [place], [address] Absolute Neut 5.6 X10 3/uL Normal 2.0-7.7 [facility] Comment on above: Performed By: #### L 100.0100, L500.4050, [id number] ####[facility] [address] [place], [address] Basophils/100 WBC (Bld) 0.7 % Normal 0-1 [facility] Comment on above: Performed By: #### L 100.0100, L500.4050, [id number] ####[facility] [address] [place], [address] Eosinophils/100 WBC (Bld) 2.9 % Normal 0-5 [facility] Comment on above: Performed By: #### L 100.0100, L500.4050, [id number] ####[facility] [address] [place], [address] Erythrocyte distribution width (RBC) [Ratio] 15.0 % High 11.6-14.6 [facility] Comment on above: Performed By: #### L 100.0100, L500.4050, [id number] ####[facility] [address] [place], [address] Hematocrit (Bld) [Volume fraction] 42.2 % Normal 40-54 [facility] Comment on above: Performed By: #### L 100.0100, L500.4050, [id number] ####[facility] [address] [place], [address] Hemoglobin (Bld) [Mass/Vol] 14.1 g/dL Normal 13.0-16.5 [facility] Comment on above: Performed By: #### L 100.0100, L500.4050, [id number] ####[facility] [address] [place], [address] IG% 0.900 Normal 0.0-0.9 [facility] Comment on above: Result Comment: IG% - Immature Granulocytes (promyelocytes, myelocytes andmetamyelocytes) > 1% indicates that a LEFT SHIFT is Present. Performed By: #### L 100.0100, L500.4050, L503.5510 ####[facility] [address] [place], [address] Lymphocytes/100 WBC (Bld) 20.3 % Normal 19-41 [facility] Comment on above: Performed By: #### L 100.0100, L500.4050, [id number] ####[facility] [address] [place], [address] MCH (RBC) [Entitic mass] 30.5 pg Normal 27.0-32.0 [facility] Comment on above: Performed By: #### L 100.0100, L500.4050, [id number] ####[facility] [address] [place], [address] MCHC (RBC) [Mass/Vol] 33.4 g/dL Normal 32-36 [facility] Comment on above: Performed By: #### L 100.0100, L500.4050, [id number] ####[facility] [address] [place], [address] MCV (RBC) [Entitic vol] 91.3 fL Normal 80-94 [facility] Comment on above: Performed By: #### L 100.0100, L500.4050, [id number] ####[facility] [address] [place], [address] Monocytes/100 WBC (Bld) 5.7 % Normal 0-10 [facility] Comment on above: Performed By: #### L 100.0100, L500.4050, [id number] ####[facility] [address] [place], [address] Neutrophils/100 WBC (Bld) 69.5 % Normal 47-70 [facility] Comment on above: Performed By: #### L 100.0100, L500.4050, [id number] ####[facility] [address] [place], [address] Nucleated RBC (Bld) [#/Vol] 0 10*3/uL Normal 0-5 [facility] Comment on above: Performed By: #### L 100.0100, L500.4050, [id number] ####[facility] [address] [place], [address] Platelet mean volume (Bld) [Entitic vol] 9.6 fL Normal 6.2-12.0 [facility] Comment on above: Performed By: #### L 100.0100, L500.4050, [id number] ####[facility] [address] [place], [address] Platelets (Bld) [#/Vol] 122 10*3/uL Low 150-450 [facility] Comment on above: Performed By: #### L 100.0100, L500.4050, [id number] ####[facility] [address] [place], [address] RBC (Bld) [#/Vol] 4.62 10*6/uL Normal 4.6-6.2 [facility] Comment on above: Performed By: #### L 100.0100, L500.4050, [id number] ####[facility] [address] [place], [address] RDW SD 49.8 fl High 35.1-43.9 [facility] Comment on above: Performed By: #### L 100.0100, L500.4050, [id number] ####[facility] [address] [place], [address] WBC (Bld) [#/Vol] 8.1 10*3/uL Normal 4.4-11.0 [facility] Comment on above: Performed By: #### L 100.0100, L500.4050, [id number] ####[facility] [address] [place], [address] Carbon dioxide, total [Moles /volume] in Central venous bloodOrdered By: Gene Monroy on 01-06-2025 CO2 [Moles/Vol] 23.6 mmol/L 21.0-32.0 [facility] Chest 1 View (Portable)on Chest 1 View (Portable) Normal [facility] Chloride assayOrdered By: Guicho Monroy on 01-06-2025 Chloride [Moles/Vol] 100 mmol/L 98-108 [facility] Comprehensive Metabolic Prof ilon 01-06-2025 Albumin [Mass/Vol] 3.8 g/dL Normal 3.4-4.8 [facility] Comment on above: Performed By: #### L 100.0100, L500.4050, [id number] ####[facility] [address] [place], [address] Albumin/Globulin [Mass ratio] 1.0 {ratio} Normal 0.9-2.4 [facility] Comment on above: Performed By: #### L 100.0100, L500.4050, [id number] ####[facility] [address] [place], [address] ALK PHOS 84 U/L Normal 40-129 [facility] Comment on above: Performed By: #### L 100.0100, L500.4050, [id number] ####[facility] [address] [place], [address] ALT [Catalytic activity/Vol] 18 U/L Normal <=46 [facility] Comment on above: Performed By: #### L 100.0100, L500.4050, [id number] ####[facility] [address] [place], [address] AST [Catalytic activity/Vol] 20 U/L Normal <=37 [facility] Comment on above: Performed By: #### L 100.0100, L500.4050, [id number] ####[facility] [address] [place], [address] Bilirubin [Mass/Vol] 0.56 mg/dL Normal 0.00-1.30 [facility] Comment on above: Performed By: #### L 100.0100, L500.4050, [id number] ####[facility] [address] [place], [address] BUN/CRE 12.9 RATIO Normal 10-20 [facility] Comment on above: Performed By: #### L 100.0100, L500.4050, [id number] ####[facility] [address] [place], [address] Calcium [Mass/Vol] 9.6 mg/dL Normal 7.6-11.0 [facility] Comment on above: Performed By: #### L 100.0100, L500.4050, [id number] ####[facility] [address] [place], [address] Chloride [Moles/Vol] 100 mmol/L Normal 98-108 [facility] Comment on above: Performed By: #### L 100.0100, L500.4050, [id number] ####[facility] [address] [place], [address] CO2 [Moles/Vol] 23.6 mmol/L Normal 21.0-32.0 [facility] Comment on above: Performed By: #### L 100.0100, L500.4050, [id number] ####[facility] [address] [place], [address] Creatinine [Mass/Vol] 1.62 mg/dL High 0.70-1.20 [facility] Comment on above: Performed By: #### L 100.0100, L500.4050, [id number] ####[facility] [address] [place], [address] ECRCL 53.33 ml/min Normal 50-250 [facility] Comment on above: Performed By: #### L 100.0100, L500.4050, [id number] ####[facility] [address] [place], [address] GAP 12 Normal 5-15 [facility] Comment on above: Performed By: #### L 100.0100, L500.4050, [id number] ####[facility] [address] [place], [address] GFR/1.73 sq M.predicted among non-blacks MDRD (S/P/Bld) [Vol rate/Area] 44 mL/min/{1.73_m2} Low >60 [facility] Comment on above: Result Comment: mL/m in/1.73m2 CKD-EPI Creatinine Equation (2020) Performed By: #### L 100.0100, L500.4050, [id number] ####[facility] [address] [place], [address] Globulin (S) [Mass/Vol] 4.0 g/dL Normal 2.2-4.2 [facility] Comment on above: Performed By: #### L 100.0100, L500.4050, [id number] ####[facility] [address] [place], [address] Glucose [Mass/Vol] 156 mg/dL High 70-99 [facility] Comment on above: Performed By: #### L 100.0100, L500.4050, [id number] ####[facility] [address] [place], [address] Potassium [Moles/Vol] 4.4 mmol/L Normal 3.3-5.1 [facility] Comment on above: Performed By: #### L 100.0100, L500.4050, [id number] ####[facility] [address] [place], [address] Sodium [Moles/Vol] 135 mmol/L Normal 133-145 [facility] Comment on above: Performed By: #### L 100.0100, L500.4050, [id number] ####[facility] [address] [place], [address] T PROT 7.8 g/dL Normal 5.9-8.4 [facility] Comment on above: Performed By: #### L 100.0100, L500.4050, [id number] ####[facility] [address] [place], [address] Urea nitrogen [Mass/Vol] 21 mg/dL High 4-19 [facility] Comment on above: Performed By: #### L 100.0100, L500.4050, L503.5510 ####[facility] [address] [place], [address] Emergency Department Summary on 01-06-2025 Emergency Department Summary Normal [facility] Eosinophil percentageOrdered By: Gene Monroy on 01-06-2025 Eosinophils/100 WBC (Bld) 2.9 % 0-5 [facility] Erythrocyte distribution wid th ratioOrdered By: Gene Monroy on 01-06-2025 Erythrocyte distribution width (RBC) [Ratio] 15.0 % High 11.6-14.6 [facility] Erythrocyte distribution wid th standard deviationOrdered By: Gnee Monroy on 01-06-2025 Erythrocyte distribution width (RBC) [Ratio] 49.8 fl High 35.1-43.9 [facility] Glomerular filtration rate ( GFR) estimation/1.73 sq m using serum, plasma, or whole bOrdered By: Gene Monroy on 01-06-2025 GFR/1.73 sq M.predicted among non-blacks MDRD (S/P/Bld) [Vol rate/Area] 44 mL/min/{1.73_m2} Low >60 [facility] Comment on above: mL/min/1.73m2 CKD-EP I Creatinine Equation (2020) H AND P Exam - [facility] 01-06-2025 H&P Exam - Hospitalist Normal [facility] Hematocrit Auto (Bld) [Volum e fraction]Ordered By: Gene Monroy on 01-06-2025 Hematocrit (Bld) [Volume fraction] 42.2 % 40-54 [facility] Hemoglobin measurementOrdere d By: Gene Monroy on 01-06-2025 Hemoglobin (Bld) [Mass/Vol] 14.1 g/dL 13.0-16.5 [facility] Immature granulocytes/100 WB C Auto (Bld)Ordered By: Gene Monroy on 01-06-2025 Immature granulocytes/100 WBC (Bld) 0.900 % 0.0-0.9 [facility] Comment on above: IG% - Immature Granu locytes (promyelocytes, myelocytes and metamyelocytes) > 1% indicates that a LEFT SHIFT is Present. Ketones Test strip Ql (U)Ord ered By: Gene Monroy on 01-06-2025 Ketones Ql (U) Negative Negative [facility] Laboratory - Chemistry and C hemistry - challengeOrdered By: Gene Monroy on 01-06-2025 AST [Catalytic activity/Vol] 20 U/L <38 [facility] MCV (mean corpuscular volume ) determinationOrdered By: Gene Monroy on 01-06-2025 MCV (RBC) [Entitic vol] 91.3 fL 80-94 [facility] Mean corpuscular hemoglobin (MCH) determinationOrdered By: Gene Monroy on 01-06-2025 MCH (RBC) [Entitic mass] 30.5 pg 27.0-32.0 [facility] Mean corpuscular hemoglobin concentration (MCHC) determinationOrdered By: Gene Monroy on 01-06-2025 MCHC (RBC) [Mass/Vol] 33.4 g/dL 32-36 [facility] Mean platelet volume determi nationOrdered By: Gene Monroy on 01-06-2025 Platelet mean volume (Bld) [Entitic vol] 9.6 fL 6.2-12.0 [facility] Microscopic analysis of urin e for red blood cells (RBC)Ordered By: Gene Monroy on 01-06-2025 Microscopic analysis of urine for red blood cells (RBC) 10-25 SEEN /hpf 0-5 [facility] Monocyte percentageOrdered B y: Gene Monroy on 01-06-2025 Monocytes/100 WBC (Bld) 5.7 % 0-10 [facility] Mucus LM Ql (Urine sed)Order ed By: Gene Monroy on 01-06-2025 Mucus Ql (Urine sed) 0 SEEN /hpf [facility] Neutrophil percentageOrdered By: Gene Monroy on 01-06-2025 Neutrophils/100 WBC (Bld) 69.5 % 47-70 [facility] Nitrite Test strip Ql (U)Ord ered By: Gene Monroy on 01-06-2025 Nitrite Ql (U) Negative Negative [facility] Nucleated red blood cell per centageOrdered By: Gene Monroy on 01-06-2025 Nucleated RBC/100 WBC (Bld) [Ratio] 0 % 0-5 [facility] Platelet countOrdered By: Guicho Monroy on 01-06-2025 Platelets (Bld) [#/Vol] 122 10*3/uL Low 150-450 [facility] Potassium measurement (mass/ volume)Ordered By: Gene Monroy on 01-06-2025 Potassium (Unsp spec) [Mass/Vol] 4.4 mmol/L 3.3-5.1 [facility] Protein Test strip Ql (U)Ord ered By: Gene Monroy on 01-06-2025 Protein Ql (U) 30 mg/dl High Negative [facility] RBC Auto (Bld) [#/Vol]Ordere d By: Gene Monroy on 01-06-2025 RBC (Bld) [#/Vol] 4.62 10*6/uL 4.6-6.2 [facility] Serum creatinine measurement (mass/volume)Ordered By: Gene Monroy on 01-06-2025 Creatinine [Mass/Vol] 1.62 mg/dL High 0.70-1.20 [facility] Serum globulin measurementOr dered By: Gene Monroy on 01-06-2025 Globulin (S) [Mass/Vol] 4.0 g/dL 2.2-4.2 [facility] Serum glucose measurement (m ass/volume)Ordered By: Gene Monroy on 01-06-2025 Glucose [Mass/Vol] 156 mg/dL High 70-99 [facility] Serum or plasma alanine wylie otransferase (ALT) measurementOrdered By: Gene Monroy on 01-06-2025 ALT [Catalytic activity/Vol] 18 U/L <47 [facility] Serum or plasma albumin maricel urement (mass/volume)Ordered By: Gene Monroy on 01-06-2025 Albumin [Mass/Vol] 3.8 g/dL 3.4-4.8 [facility] Serum or plasma albumin/glob ulin mass ratioOrdered By: Gene Monroy on 01-06-2025 Albumin/Globulin [Mass ratio] 1.0 {ratio} 0.9-2.4 [facility] Serum or plasma alkaline ivan sphatase measurementOrdered By: Gene Monroy on 01-06-2025 ALP [Catalytic activity/Vol] 84 U/L 40-129 [facility] Serum or plasma calcium maricel urement (mass/volume)Ordered By: Gene Monroy on 01-06-2025 Calcium [Mass/Vol] 9.6 mg/dL 7.6-11.0 [facility] Serum or plasma urea nitroge n measurement (mass/volume)Ordered By: Gene Monroy on 01-06-2025 Urea nitrogen [Mass/Vol] 21 mg/dL High 4-19 [facility] Sodium levelOrdered By: Gene Monroy on 01-06-2025 Sodium [Moles/Vol] 135 mmol/L 133-145 [facility] Squamous epithelial cells de tection in urine sediment by light microscopyOrdered By: Gene Monroy on 01-06-2025 Epithelial cells.squamous LM Ql (Urine sed) 0-5 SEEN /hpf 0-5 [facility] Total proteinOrdered By: Simin Monroy on 01-06-2025 Protein [Mass/Vol] 7.8 g/dL 5.9-8.4 [facility] Urinalysis, Completeon 01-06 EPI,SQUAMOUS 0-5 SEEN Normal 0-5 [facility] Comment on above: Order Comment: CLEAN CATCH Performed By: #### L 400.0001 ####[facility] [address] [place], [place], [id number] BACTERIA 1+ /hpf Normal None Seen [facility] Comment on above: Order Comment: CLEAN CATCH Performed By: #### L 400.0001 ####[facility] [address] [place], [address] RBC 10-25 SEEN Normal 0-5 [facility] Comment on above: Order Comment: CLEAN CATCH Performed By: #### L 400.0001 ####[facility] [address] [place], [address] WBC 25-50 SEEN Normal 0-5 [facility] Comment on above: Order Comment: CLEAN CATCH Performed By: #### L 400.0001 ####[facility] [address] [place], [address] YEAST 3+ /hpf Normal None Seen [facility] Comment on above: Order Comment: CLEAN CATCH Performed By: #### L 400.0001 ####[facility] [address] [place], [address] Mucus Ql (Urine sed) 0 SEEN Normal [facility] Comment on above: Order Comment: CLEAN CATCH Performed By: #### L 400.0001 ####[facility] [address] [place], [place], [address] Urine clarityOrdered By: Simin Monroy on 01-06-2025 Clarity (U) Cloudy Clear [facility] Urine color determinationOrd ered By: Gene Monroy on 01-06-2025 Color (U) Straw Yellow [facility] Urine cultureOrdered By: Simin Monroy on 01-06-2025 Bacteria identified Cx Nom (U) Yeast, not Callie albicans Abnormal [facility] Bacteria identified Cx Nom (U) Yeast, not Callie albicans#2 Abnormal [facility] Urine glucose detectionOrder ed By: Gene Monroy on 01-06-2025 Glucose Ql (U) 1000 mg/dl High Normal [facility] Urine leukocyte esterase det ection by dipstickOrdered By: Gene Monroy on 01-06-2025 Leukocyte esterase Test strip Ql (U) 500 /ul High Negative [facility] Urine pHOrdered By: Gene carty on 01-06-2025 pH (U) 6.0 [pH] 5.0 - 8.0 [facility] [facility] Urine sediment bacteria coun t by microscopy (number/high power field)Ordered By: Gene Monroy on 01-06-2025 Bacteria LM.HPF (Urine sed) [#/Area] 1 /[HPF] None Seen [facility] Urine sediment yeast count b y microscopy (number/high powered field)Ordered By: Gene Monroy on 01-06-2025 Yeast LM.HPF (Urine sed) [#/Area] 3 /[HPF] None Seen [facility] Urine specific gravity measu rementOrdered By: Gene Monroy on 01-06-2025 Specific gravity (U) [Rel density] 1.015 1.002-1.030 [facility] Urine urobilinogen measureme ntOrdered By: Gene Monroy on 01-06-2025 Urobilinogen Ql (U) Normal mg/dl Normal [facility] Venous blood ammonia measure mentOrdered By: Gene Monroy on 01-06-2025 Ammonia (P) [Moles/Vol] 12.8 umol/L Low 16-60 [facility] White blood cell (WBC) count Ordered By: Gene Monroy on 01-06-2025 WBC (Bld) [#/Vol] 8.1 10*3/uL 4.4-11.0 [facility] White blood cell countOrdere d By: Gene Monroy on 01-06-2025 White blood cell count 25-50 SEEN /hpf 0-5 [facility] Absolute lymphocyte countOrd ered By: Jocelyn Polk on 10-19-2024 Lymphocytes Auto (Unsp spec) [#/Vol] 1.16 10*3/uL 0.83-4.51 [facility] Absolute neutrophil countOrd ered By: Jocelyn Polk on 10-19-2024 Neutrophils (Bld) [#/Vol] 3.4 10*3/uL 2.0-7.7 [facility] Anion gap in Serum or Plasma Ordered By: Jocelyn Polk on 10-19-2024 Anion gap [Moles/Vol] 14 mmol/L 5-15 [facility] Automated lymphocyte count a s percentage of total leukocytesOrdered By: Jocelyn Polk on 10-19-2024 Lymphocytes/100 WBC Auto (Unsp spec) 22.7 % 19-41 [facility] BUN/creatinine ratioOrdered By: Jocelyn Polk on 10-19-2024 Urea nitrogen/Creatinine [Mass ratio] 9.4 mg/mg Low 10-20 [facility] Basic Metabolic Profile (BMP )on 10-19-2024 BUN/CRE 9.4 RATIO Low 10-20 [facility] Comment on above: Performed By: #### L 100.0100, L500.2500 ####[facility] [address] [place], [address] Calcium [Mass/Vol] 8.8 mg/dL Normal 7.6-11.0 [facility] Comment on above: Performed By: #### L 100.0100, L500.2500 ####[facility] [address] [place], [address] Chloride [Moles/Vol] 100 mmol/L Normal 98-108 [facility] Comment on above: Performed By: #### L 100.0100, L500.2500 ####[facility] [address] [place], [address] CO2 [Moles/Vol] 23.0 mmol/L Normal 21.0-32.0 [facility] Comment on above: Performed By: #### L 100.0100, L500.2500 ####[facility] [address] [place], [address] Creatinine [Mass/Vol] 1.60 mg/dL High 0.70-1.20 [facility] Comment on above: Performed By: #### L 100.0100, L500.2500 ####[facility] [address] [place], [address] ECRCL 53.64 ml/min Normal 50-250 [facility] Comment on above: Performed By: #### L 100.0100, L500.2500 ####[facility] [address] [place], [address] GAP 14 Normal 5-15 [facility] Comment on above: Performed By: #### L 100.0100, L500.2500 ####[facility] [address] [place], [address] GFR/1.73 sq M.predicted among non-blacks MDRD (S/P/Bld) [Vol rate/Area] 45 mL/min/{1.73_m2} Low >60 [facility] Comment on above: Result Comment: mL/m in/1.73m2 CKD-EPI Creatinine Equation (2020) Performed By: #### L 100.0100, L500.2500 ####[facility] [address] [place], [address] Glucose [Mass/Vol] 171 mg/dL High 70-99 [facility] Comment on above: Performed By: #### L 100.0100, L500.2500 ####[facility] [address] [place], [address] Potassium [Moles/Vol] 3.8 mmol/L Normal 3.3-5.1 [facility] Comment on above: Performed By: #### L 100.0100, L500.2500 ####[facility] [address] [place], [address] Sodium [Moles/Vol] 137 mmol/L Normal 133-145 [facility] Comment on above: Performed By: #### L 100.0100, L500.2500 ####[facility] [address] [place], [address] Urea nitrogen [Mass/Vol] 15 mg/dL Normal 4-19 [facility] Comment on above: Performed By: #### L 100.0100, L500.2500 ####[facility] [address] [place], [address] Basophil percentageOrdered B y: Jocelyn Polk on 10-19-2024 Basophils/100 WBC (Bld) 0.8 % 0-1 [facility] Bedside Glucoseon - FINGERSTICK GLU 160 mg/dL High 74-106 [facility] Comment on above: Result Comment: NITZA GEMENT OF PATIENT CARE PER NURSING PROTOCOL Performed By: #### L 501.080 ####[facility] [address] [place], [address] FINGERSTICK GLU 140 mg/dL High 74-106 [facility] Comment on above: Result Comment: NITZA GEMENT OF PATIENT CARE PER NURSING PROTOCOL Performed By: #### L 501.080 ####[facility] [address] [place], [address] FINGERSTICK GLU 144 mg/dL High 74-106 [facility] Comment on above: Result Comment: NITZA GEMENT OF PATIENT CARE PER NURSING PROTOCOL Performed By: #### L 501.080 ####[facility] [address] [place], [address] CBC W/Diff, Automatedon - Absolute Lymph 1.16 X10 3/uL Normal 0.83-4.51 [facility] Comment on above: Performed By: #### L 100.0100, L500.2500 ####[facility] [address] [place], [address] Absolute Neut 3.4 X10 3/uL Normal 2.0-7.7 [facility] Comment on above: Performed By: #### L 100.0100, L500.2500 ####[facility] [address] [place], [address] Basophils/100 WBC (Bld) 0.8 % Normal 0-1 [facility] Comment on above: Performed By: #### L 100.0100, L500.2500 ####[facility] [address] [place], [address] Eosinophils/100 WBC (Bld) 2.3 % Normal 0-5 [facility] Comment on above: Performed By: #### L 100.0100, L500.2500 ####[facility] [address] [place], [address] Erythrocyte distribution width (RBC) [Ratio] 14.5 % Normal 11.6-14.6 [facility] Comment on above: Performed By: #### L 100.0100, L500.2500 ####[facility] [address] [place], [address] Hematocrit (Bld) [Volume fraction] 39.9 % Low 40-54 [facility] Comment on above: Performed By: #### L 100.0100, L500.2500 ####[facility] [address] [place], [address] Hemoglobin (Bld) [Mass/Vol] 13.3 g/dL Normal 13.0-16.5 [facility] Comment on above: Performed By: #### L 100.0100, L500.2500 ####[facility] [address] [place], [address] IG% 1.000 High 0.0-0.9 [facility] Comment on above: Result Comment: IG% - Immature Granulocytes (promyelocytes, myelocytes andmetamyelocytes) > 1% indicates that a LEFT SHIFT is Present. Performed By: #### L 100.0100, L500.2500 ####[facility] [address] [place], [address] Lymphocytes/100 WBC (Bld) 22.7 % Normal 19-41 [facility] Comment on above: Performed By: #### L 100.0100, L500.2500 ####[facility] [address] [place], [address] MCH (RBC) [Entitic mass] 30.5 pg Normal 27.0-32.0 [facility] Comment on above: Performed By: #### L 100.0100, L500.2500 ####[facility] [address] [place], [address] MCHC (RBC) [Mass/Vol] 33.3 g/dL Normal 32-36 [facility] Comment on above: Performed By: #### L 100.0100, L500.2500 ####[facility] [address] [place], [address] MCV (RBC) [Entitic vol] 91.5 fL Normal 80-94 [facility] Comment on above: Performed By: #### L 100.0100, L500.2500 ####[facility] [address] [place], [address] Monocytes/100 WBC (Bld) 6.4 % Normal 0-10 [facility] Comment on above: Performed By: #### L 100.0100, L500.2500 ####[facility] [address] [place], [address] Neutrophils/100 WBC (Bld) 66.8 % Normal 47-70 [facility] Comment on above: Performed By: #### L 100.0100, L500.2500 ####[facility] [address] [place], [address] Nucleated RBC (Bld) [#/Vol] 0 10*3/uL Normal 0-5 [facility] Comment on above: Performed By: #### L 100.0100, L500.2500 ####[facility] [address] [place], [address] Platelet mean volume (Bld) [Entitic vol] 8.8 fL Normal 6.2-12.0 [facility] Comment on above: Performed By: #### L 100.0100, L500.2500 ####[facility] [address] [place], [address] Platelets (Bld) [#/Vol] 110 10*3/uL Low 150-450 [facility] Comment on above: Performed By: #### L 100.0100, L500.2500 ####[facility] [address] [place], [address] RBC (Bld) [#/Vol] 4.36 10*6/uL Low 4.6-6.2 [facility] Comment on above: Performed By: #### L 100.0100, L500.2500 ####[facility] [address] [place], [address] RDW SD 48.9 fl High 35.1-43.9 [facility] Comment on above: Performed By: #### L 100.0100, L500.2500 ####[facility] [address] [place], [address] WBC (Bld) [#/Vol] 5.1 10*3/uL Normal 4.4-11.0 [facility] Comment on above: Performed By: #### L 100.0100, L500.2500 ####[facility] [address] [place], [address] Carbon dioxide, total [Moles /volume] in Central venous bloodOrdered By: Jocelyn Polk on 10-19-2024 CO2 [Moles/Vol] 23.0 mmol/L 21.0-32.0 [facility] Chloride assayOrdered By: Brant Polk on 10-19-2024 Chloride [Moles/Vol] 100 mmol/L 98-108 [facility] Culture, Blood (WB)on 2024 CUB Blood cultures x2, from two different sites No growth in 5 days. Normal [facility] Comment on above: Performed By: #### M 200.1000 ####[facility] [address] [place], [address] Discharge Instructionon 10-02 Discharge Instruction Normal [facility] Eosinophil percentageOrdered By: Jocelyn Polk on 10-19-2024 Eosinophils/100 WBC (Bld) 2.3 % 0-5 [facility] Erythrocyte distribution wid th ratioOrdered By: Jocelyn Polk on 10-19-2024 Erythrocyte distribution width (RBC) [Ratio] 14.5 % 11.6-14.6 [facility] Erythrocyte distribution wid th standard deviationOrdered By: Jocelyn Polk on 10-19-2024 Erythrocyte distribution width (RBC) [Ratio] 48.9 fl High 35.1-43.9 [facility] Glomerular filtration rate ( GFR) estimation/1.73 sq m using serum, plasma, or whole bOrdered By: Jocelyn Polk on 10-19-2024 GFR/1.73 sq M.predicted among non-blacks MDRD (S/P/Bld) [Vol rate/Area] 45 mL/min/{1.73_m2} Low >60 [facility] Comment on above: mL/min/1.73m2 CKD-EP I Creatinine Equation (2020) [facility] deOrdered By: Jocelyn Polk on 10-19-2024 Glucose [Mass/Vol] 160 mg/dL High 74-106 [facility] Comment on above: MANAGEMENT OF PATIEN T CARE PER NURSING PROTOCOL Hematocrit Auto (Bld) [Volum e fraction]Ordered By: Jocelyn Polk on 10-19-2024 Hematocrit (Bld) [Volume fraction] 39.9 % Low 40-54 [facility] Hemoglobin measurementOrdere d By: Jocelyn Polk on 10-19-2024 Hemoglobin (Bld) [Mass/Vol] 13.3 g/dL 13.0-16.5 [facility] Immature granulocytes/100 WB C Auto (Bld)Ordered By: Jocelyn Polk on 10-19-2024 Immature granulocytes/100 WBC (Bld) 1.000 % High 0.0-0.9 [facility] Comment on above: IG% - Immature Granu locytes (promyelocytes, myelocytes and metamyelocytes) > 1% indicates that a LEFT SHIFT is Present. MCV (mean corpuscular volume ) determinationOrdered By: Jocelyn Polk on 10-19-2024 MCV (RBC) [Entitic vol] 91.5 fL 80-94 [facility] Mean corpuscular hemoglobin (MCH) determinationOrdered By: Jocelyn Polk on 10-19-2024 MCH (RBC) [Entitic mass] 30.5 pg 27.0-32.0 [facility] Mean corpuscular hemoglobin concentration (MCHC) determinationOrdered By: Jocelyn Polk on 10-19-2024 MCHC (RBC) [Mass/Vol] 33.3 g/dL 32-36 [facility] Mean platelet volume determi nationOrdered By: Jocelyn Polk on 10-19-2024 Platelet mean volume (Bld) [Entitic vol] 8.8 fL 6.2-12.0 [facility] Monocyte percentageOrdered B y: Jocelyn Polk on 10-19-2024 Monocytes/100 WBC (Bld) 6.4 % 0-10 [facility] Neutrophil percentageOrdered By: Jocelyn Polk on 10-19-2024 Neutrophils/100 WBC (Bld) 66.8 % 47-70 [facility] Nucleated red blood cell per centageOrdered By: Jocelyn Polk on 10-19-2024 Nucleated RBC/100 WBC (Bld) [Ratio] 0 % 0-5 [facility] Platelet countOrdered By: Brant Polk on 10-19-2024 Platelets (Bld) [#/Vol] 110 10*3/uL Low 150-450 [facility] Potassium measurement (mass/ volume)Ordered By: Jocelyn Polk on 10-19-2024 Potassium (Unsp spec) [Mass/Vol] 3.8 mmol/L 3.3-5.1 [facility] RBC Auto (Bld) [#/Vol]Ordere d By: Jocelyn Polk on 10-19-2024 RBC (Bld) [#/Vol] 4.36 10*6/uL Low 4.6-6.2 [facility] Serum creatinine measurement (mass/volume)Ordered By: Jocelyn Polk on 10-19-2024 Creatinine [Mass/Vol] 1.60 mg/dL High 0.70-1.20 [facility] Serum glucose measurement (m ass/volume)Ordered By: Jocelyn Polk on 10-19-2024 Glucose [Mass/Vol] 171 mg/dL High 70-99 [facility] Serum or plasma calcium maricel urement (mass/volume)Ordered By: Jocelyn Polk on 10-19-2024 Calcium [Mass/Vol] 8.8 mg/dL 7.6-11.0 [facility] Serum or plasma urea nitroge n measurement (mass/volume)Ordered By: Jocelyn Polk on 10-19-2024 Urea nitrogen [Mass/Vol] 15 mg/dL 4-19 [facility] Sodium levelOrdered By: Meredith Polk on 10-19-2024 Sodium [Moles/Vol] 137 mmol/L 133-145 [facility] White blood cell (WBC) count Ordered By: Jocelyn Polk on 10-19-2024 WBC (Bld) [#/Vol] 5.1 10*3/uL 4.4-11.0 [facility] Bedside Glucoseon 10-18-2024 FINGERSTICK GLU 145 mg/dL High [address] [facility] Comment on above: Result Comment: NITZA GEMENT OF PATIENT CARE PER NURSING PROTOCOL Performed By: #### L 501.080 ####[facility] [address] [facility] [address] FINGERSTICK GLU 209 mg/dL High [address] [place] [address] Comment on above: Result Comment: NITZA GEMENT OF PATIENT CARE PER NURSING PROTOCOL Performed By: #### L 501.080 ####[facility] [address] [place], [address] FINGERSTICK GLU 167 mg/dL High [address] [place] [address] Comment on above: Result Comment: NITZA GEMENT OF PATIENT CARE PER NURSING PROTOCOL Performed By: #### L 501.080 ####[facility] [address] [place], [address] Bedside Glucoseon 10-17-2024 FINGERSTICK GLU 137 mg/dL High [facility]106 [facility] Comment on above: Result Comment: NITZA GEMENT OF PATIENT CARE PER NURSING PROTOCOL Performed By: #### L 501.080 ####[facility] [address] [place], [address] FINGERSTICK GLU 128 mg/dL High [facility]106 [facility] Comment on above: Result Comment: NITZA GEMENT OF PATIENT CARE PER NURSING PROTOCOL Performed By: #### L 501.080 ####[facility] [address] [place], [address] FINGERSTICK GLU 186 mg/dL High 74-106 [facility] Comment on above: Result Comment: NITZA GEMENT OF PATIENT CARE PER NURSING PROTOCOL Performed By: #### L 501.080 ####[facility] [address] [place], [address] FINGERSTICK GLU 168 mg/dL High 74-106 [facility] Comment on above: Result Comment: NITZA GEMENT OF PATIENT CARE PER NURSING PROTOCOL Performed By: #### L 501.080 ####[facility] [address] [place], [address] FINGERSTICK GLU 166 mg/dL High -106 [facility] Comment on above: Result Comment: NITZA GEMENT OF PATIENT CARE PER NURSING PROTOCOL Performed By: #### L 501.080 ####[facility] [address] [place], [address] Bedside Glucoseon 10-16-2024 FINGERSTICK GLU 135 mg/dL High -106 [facility] Comment on above: Result Comment: NITZA GEMENT OF PATIENT CARE PER NURSING PROTOCOL Performed By: #### L 501.080 ####[facility] [address] [place], [address] FINGERSTICK GLU 152 mg/dL High 74-[address] [place] [address] Comment on above: Result Comment: NITZA GEMENT OF PATIENT CARE PER NURSING PROTOCOL Performed By: #### L 501.080 ####[facility] [address] [place], [address] FINGERSTICK GLU 156 mg/dL High 74-106 [facility] Comment on above: Result Comment: NITZA GEMENT OF PATIENT CARE PER NURSING PROTOCOL Performed By: #### L 501.080 ####[facility] [address] [place], [address] FINGERSTICK GLU 185 mg/dL High 74-106 [facility] Comment on above: Result Comment: NITZA GEMENT OF PATIENT CARE PER NURSING PROTOCOL Performed By: #### L 501.080 ####[facility] [address] [place], [address] FINGERSTICK GLU 178 mg/dL High 74-106 [facility] Comment on above: Result Comment: NITZA GEMENT OF PATIENT CARE PER NURSING PROTOCOL Performed By: #### L 501.080 ####[facility] [address] [place], [address] Urine Cultureon 10-16-2024 URC Yeast, not Callie albicans [place] Count 50,000-80,000 Normal [facility] Comment on above: Performed By: #### M 100.2200 ####[facility] [address] [place], [address] Bedside Glucoseon 10-15-2024 FINGERSTICK GLU 246 mg/dL High -106 [facility] Comment on above: Result Comment: NITZA GEMENT OF PATIENT CARE PER NURSING PROTOCOL Performed By: #### L 501.080 ####[facility] [address] [place], [address] FINGERSTICK GLU 138 mg/dL High 74-106 [facility] Comment on above: Result Comment: NITZA GEMENT OF PATIENT CARE PER NURSING PROTOCOL Performed By: #### L 501.080 ####[facility] [address] [place], [address] FINGERSTICK GLU 129 mg/dL High -106 [facility] Comment on above: Result Comment: NITZA GEMENT OF PATIENT CARE PER NURSING PROTOCOL Performed By: #### L 501.080 ####[facility] [address] [place], [address] FINGERSTICK GLU 109 mg/dL High 74-106 [facility] Comment on above: Result Comment: NITZA GEMENT OF PATIENT CARE PER NURSING PROTOCOL Performed By: #### L 501.080 ####[facility] [address] [place], [address] Bedside Glucoseon 10-14-2024 FINGERSTICK GLU 135 mg/dL High [address] [place] [address] Comment on above: Result Comment: NITZA GEMENT OF PATIENT CARE PER NURSING PROTOCOL Performed By: #### L 501.080 ####[facility] [address] [place], [address] FINGERSTICK GLU 171 mg/dL High [address] [place] [address] Comment on above: Result Comment: NITZA GEMENT OF PATIENT CARE PER NURSING PROTOCOL Performed By: #### L 501.080 ####[facility] [address] [place], [address] FINGERSTICK GLU 168 mg/dL High [address] [place] [address] Comment on above: Result Comment: NITZA GEMENT OF PATIENT CARE PER NURSING PROTOCOL Performed By: #### L 501.080 ####[facility] [address] [place], [address] FINGERSTICK GLU 114 mg/dL [address] Comment on above: Result Comment: NITZA GEMENT OF PATIENT CARE PER NURSING PROTOCOL Performed By: #### L 501.080 ####[facility] [address] [place], [address] Bilirubin, totalOrdered By: Bisi Rivera on 10-14-2024 Bilirubin [Mass/Vol] 0.50 mg/dL 0.00-1.30 [facility] CBC W/Diff, Automatedon 10-02 Absolute Lymph 1.61 X10 3/uL Normal 0.83-4.51 [facility] Comment on above: Performed By: #### L 100.0100, L501.2300, L501.5200, L500.4050 ####[facility] [address] [place], [address] Absolute Neut 3.8 X10 3/uL Normal 2.0-7.7 [facility] Comment on above: Performed By: #### L 100.0100, L501.2300, L501.5200, L500.4050 ####[facility] [address] [place], [address] Basophils/100 WBC (Bld) 0.6 % Normal 0-1 [facility] Comment on above: Performed By: #### L 100.0100, L501.2300, L501.5200, L500.4050 ####[facility] [address] [place], [address] Eosinophils/100 WBC (Bld) 3.2 % Normal 0-5 [facility] Comment on above: Performed By: #### L 100.0100, L501.2300, L501.5200, L500.4050 ####[facility] [address] [place], [address] Erythrocyte distribution width (RBC) [Ratio] 14.6 % Normal 11.6-14.6 [facility] Comment on above: Performed By: #### L 100.0100, L501.2300, L501.5200, L500.4050 ####[facility] [address] [place], [address] Hematocrit (Bld) [Volume fraction] 40.9 % Normal 40-54 [facility] Comment on above: Performed By: #### L 100.0100, L501.2300, L501.5200, L500.4050 ####[facility] [address] [place], [address] Hemoglobin (Bld) [Mass/Vol] 13.2 g/dL Normal 13.0-16.5 [facility] Comment on above: Performed By: #### L 100.0100, L501.2300, L501.5200, L500.4050 ####[facility] [address] [place], [address] IG% 1.300 High 0.0-0.9 [facility] Comment on above: Result Comment: IG% - Immature Granulocytes (promyelocytes, myelocytes andmetamyelocytes) > 1% indicates that a LEFT SHIFT is Present. Performed By: #### L 100.0100, L501.2300, L501.5200, L500.4050 ####[facility] [address] [place], [address] Lymphocytes/100 WBC (Bld) 26.1 % Normal 19-41 [facility] Comment on above: Performed By: #### L 100.0100, L501.2300, L501.5200, L500.4050 ####[facility] [address] [place], [address] MCH (RBC) [Entitic mass] 30.3 pg Normal 27.0-32.0 [facility] Comment on above: Performed By: #### L 100.0100, L501.2300, L501.5200, L500.4050 ####[facility] [address] [place], [address] MCHC (RBC) [Mass/Vol] 32.3 g/dL Normal 32-36 [facility] Comment on above: Performed By: #### L 100.0100, L501.2300, L501.5200, L500.4050 ####[facility] [address] [place], [address] MCV (RBC) [Entitic vol] 93.8 fL Normal 80-94 [facility] Comment on above: Performed By: #### L 100.0100, L501.2300, L501.5200, L500.4050 ####[facility] [address] [place], [address] Monocytes/100 WBC (Bld) 7.8 % Normal 0-10 [facility] Comment on above: Performed By: #### L 100.0100, L501.2300, L501.5200, L500.4050 ####[facility] [address] [place], [address] Neutrophils/100 WBC (Bld) 61.0 % Normal 47-70 [facility] [facility] Comment on above: Performed By: #### L 100.0100, L501.2300, L501.5200, L500.4050 ####[facility] [address] [place], [address] Nucleated RBC (Bld) [#/Vol] 0 10*3/uL Normal 0-5 [facility] Comment on above: Performed By: #### L 100.0100, L501.2300, L501.5200, L500.4050 ####[facility] [address] [place], [address] Platelet mean volume (Bld) [Entitic vol] 9.4 fL Normal 6.2-12.0 [facility] Comment on above: Performed By: #### L 100.0100, L501.2300, L501.5200, L500.4050 ####[facility] [address] [place], [address] Platelets (Bld) [#/Vol] 117 10*3/uL Low 150-450 [facility] Comment on above: Performed By: #### L 100.0100, L501.2300, L501.5200, L500.4050 ####[facility] [address] [place], [address] RBC (Bld) [#/Vol] 4.36 10*6/uL Low 4.6-6.2 [facility] Comment on above: Performed By: #### L 100.0100, L501.2300, L501.5200, L500.4050 ####[facility] [address] [place], [address] RDW SD 50.6 fl High 35.1-43.9 [facility] Comment on above: Performed By: #### L 100.0100, L501.2300, L501.5200, L500.4050 ####[facility] [address] [place], [address] WBC (Bld) [#/Vol] 6.2 10*3/uL Normal 4.4-11.0 [facility] Comment on above: Performed By: #### L 100.0100, L501.2300, L501.5200, L500.4050 ####[facility] [address] [place], [address] Comprehensive Metabolic Prof [facility] 10-14-2024 Albumin [Mass/Vol] 3.4 g/dL Normal 3.4-4.8 [facility] Comment on above: Performed By: #### L 100.0100, L501.2300, L501.5200, L500.4050 ####[facility] [address] [place], [address] Albumin/Globulin [Mass ratio] 1.0 {ratio} Normal 0.9-2.4 [facility] Comment on above: Performed By: #### L 100.0100, L501.2300, L501.5200, L500.4050 ####[facility] [address] [place], [address] ALK PHOS 76 U/L Normal 40-129 [facility] Comment on above: Performed By: #### L 100.0100, L501.2300, L501.5200, L500.4050 ####[facility] [address] [place], [address] ALT [Catalytic activity/Vol] 14 U/L Normal <=46 [facility] Comment on above: Performed By: #### L 100.0100, L501.2300, L501.5200, L500.4050 ####[facility] [address] [place], [address] AST [Catalytic activity/Vol] 27 U/L Normal <=37 [facility] Comment on above: Result Comment: Hemo lysis present, Results??could be affected.?? Performed By: #### L 100.0100, L501.2300, L501.5200, L500.4050 ####[facility] [address] [place], [address] Bilirubin [Mass/Vol] 0.50 mg/dL Normal 0.00-1.30 [facility] Comment on above: Performed By: #### L 100.0100, L501.2300, L501.5200, L500.4050 ####[facility] [address] [place], [address] BUN/CRE 11.8 RATIO Normal 10-20 [facility] Comment on above: Performed By: #### L 100.0100, L501.2300, L501.5200, L500.4050 ####[facility] [address] [place], [address] Calcium [Mass/Vol] 8.4 mg/dL Normal 7.6-11.0 [facility] Comment on above: Performed By: #### L 100.0100, L501.2300, L501.5200, L500.4050 ####[facility] [address] [place], [address] Chloride [Moles/Vol] 105 mmol/L Normal 98-108 [facility] Comment on above: Performed By: #### L 100.0100, L501.2300, L501.5200, L500.4050 ####[facility] [address] [place], [address] CO2 [Moles/Vol] 19.8 mmol/L Low 21.0-32.0 [facility] Comment on above: Performed By: #### L 100.0100, L501.2300, L501.5200, L500.4050 ####[facility] [address] [place], [address] Creatinine [Mass/Vol] 1.63 mg/dL High 0.70-1.20 [facility] Comment on above: Performed By: #### L 100.0100, L501.2300, L501.5200, L500.4050 ####[facility] [address] [place], [address] ECRCL 54.22 ml/min Normal 50-250 [facility] Comment on above: Performed By: #### L 100.0100, L501.2300, L501.5200, L500.4050 ####[facility] [address] [place], [address] GAP 12 Normal 5-15 [facility] Comment on above: Performed By: #### L 100.0100, L501.2300, L501.5200, L500.4050 ####[facility] [address] [place], [address] GFR/1.73 sq M.predicted among non-blacks MDRD (S/P/Bld) [Vol rate/Area] 44 mL/min/{1.73_m2} Low >60 [facility] Comment on above: Result Comment: mL/m in/1.73m2 CKD-EPI Creatinine Equation (2020) Performed By: #### L 100.0100, L501.2300, L501.5200, L500.4050 ####[facility] [address] [place], [address] Globulin (S) [Mass/Vol] 3.4 g/dL Normal 2.2-4.2 [facility] Comment on above: Performed By: #### L 100.0100, L501.2300, L501.5200, L500.4050 ####[facility] [address] [place], [address] Glucose [Mass/Vol] 128 mg/dL High 70-99 [facility] Comment on above: Performed By: #### L 100.0100, L501.2300, L501.5200, L500.4050 ####[facility] [address] [place], [address] Potassium [Moles/Vol] 4.3 mmol/L Normal 3.3-5.1 [facility] Comment on above: Result Comment: Hemo lysis present, Results??could be affected.?? Performed By: #### L 100.0100, L501.2300, L501.5200, L500.4050 ####[facility] [address] [place], [address] Sodium [Moles/Vol] 136 mmol/L Normal 133-145 [facility] Comment on above: Performed By: #### L 100.0100, L501.2300, L501.5200, L500.4050 ####[facility] [address] [place], [address] T PROT 6.8 g/dL Normal 5.9-8.4 [facility] Comment on above: Performed By: #### L 100.0100, L501.2300, L501.5200, L500.4050 ####[facility] [address] [place], [address] Urea nitrogen [Mass/Vol] 19 mg/dL Normal 4-19 [facility] Comment on above: Performed By: #### L 100.0100, L501.2300, L501.5200, L500.4050 ####[facility] [address] [place], [address] Laboratory - Chemistry and C hemistry - challengeOrdered By: Bisi Rivera on 10-14-2024 AST [Catalytic activity/Vol] 27 U/L <38 [facility] Comment on above: Hemolysis present, R esults could be affected. Lactic Acidon 10-14-2024 Lactate [Moles/Vol] 1.6 mmol/L Normal 0.0-2.0 [facility] Comment on above: Performed By: #### L 503.6005 ####[facility] [address] [place], [address] Lactic acid measurementOrder ed By: Nick Coyle on 10-14-2024 Lactate [Moles/Vol] 1.6 mmol/L 0.0-2.0 [facility] Magnesiumon 10-14-2024 Magnesium [Mass/Vol] 1.9 mg/dL Normal 1.5-2.2 [facility] Comment on above: Performed By: #### L 100.0100, L501.2300, L501.5200, L500.4050 ####[facility] [address] [place], [address] Magnesium measurement (mass/ volume)Ordered By: Bisi Rivera on 10-14-2024 Magnesium (Unsp spec) [Mass/Vol] 1.9 mg/dL 1.5-2.2 [facility] Phosphoruson 10-14-2024 Phosphate [Mass/Vol] 2.9 mg/dL Normal 2.7-4.5 [facility] Comment on above: Performed By: #### L 100.0100, L501.2300, L501.5200, L500.4050 ####[facility] [address] [place], [address] Serum globulin measurementOr dered By: Bisi Rivera on 10-14-2024 Globulin (S) [Mass/Vol] 3.4 g/dL 2.2-4.2 [facility] Serum or plasma alanine wylie otransferase (ALT) measurementOrdered By: Bisi Rivera on 10-14-2024 ALT [Catalytic activity/Vol] 14 U/L <47 [facility] Serum or plasma albumin maricel urement (mass/volume)Ordered By: Bisi Rivera on 10-14-2024 Albumin [Mass/Vol] 3.4 g/dL 3.4-4.8 [facility] Serum or plasma albumin/glob ulin mass ratioOrdered By: Bisi Rivera on 10-14-2024 Albumin/Globulin [Mass ratio] 1.0 {ratio} 0.9-2.4 [facility] Serum or plasma alkaline ivan sphatase measurementOrdered By: Bisi Rivera on 10-14-2024 ALP [Catalytic activity/Vol] 76 U/L 40-129 [facility] Total proteinOrdered By: Hyun Rivera on 10-14-2024 Protein [Mass/Vol] 6.8 g/dL 5.9-8.4 [facility] Abdomen/Pelvis without Conto n 10-13-2024 Abdomen/Pelvis without Cont Normal [facility] Absolute lymphocyte countOrd ered By: Nick Coyle on 10-13-2024 Lymphocytes Auto (Unsp spec) [#/Vol] 1.75 10*3/uL 0.83-4.51 [facility] Absolute neutrophil countOrd ered By: Nick Leonides on 10-13-2024 Neutrophils (Bld) [#/Vol] 5.5 10*3/uL 2.0-7.7 [facility] Anion gap in Serum or Plasma Ordered By: Nick Coyle on 10-13-2024 Anion gap [Moles/Vol] 15 mmol/L 5-15 [facility] Automated lymphocyte count a s percentage of total leukocytesOrdered By: iNck Coyle on 10-13-2024 Lymphocytes/100 WBC Auto (Unsp spec) 21.5 % 19-41 [facility] BUN/creatinine ratioOrdered By: Nick Coyle on 06-12-2025 Urea nitrogen/Creatinine [Mass ratio] 10.7 mg/mg 10- [facility] Basic Metabolic Profile (BMP )on 10-13-2024 BUN/CRE 10.7 RATIO Normal - [facility] Comment on above: Performed By: #### L 100.0100, L500.2500, L503.6005 ####[facility] [address] [place], [address] Calcium [Mass/Vol] 8.9 mg/dL Normal 7.6-11.0 [facility] Comment on above: Performed By: #### L 100.0100, L500.2500, L503.6005 ####[facility] [address] [place], [address] Chloride [Moles/Vol] 101 mmol/L Normal 98-108 [facility] Comment on above: Performed By: #### L 100.0100, L500.2500, L503.6005 ####[facility] [address] [place], [address] CO2 [Moles/Vol] 19.3 mmol/L Low 21.0-32.0 [facility] Comment on above: Performed By: #### L 100.0100, L500.2500, L503.6005 ####[facility] [address] [place], [address] Creatinine [Mass/Vol] 1.96 mg/dL High 0.70-1.20 [facility] Comment on above: Performed By: #### L 100.0100, L500.2500, L503.6005 ####[facility] [address] [place], [address] ECRCL 44.76 ml/min Low 50-250 [facility] Comment on above: Performed By: #### L 100.0100, L500.2500, L503.6005 ####[facility] [address] [place], [address] GAP 15 Normal 5-15 [facility] Comment on above: Performed By: #### L 100.0100, L500.2500, L503.6005 ####[facility] [address] [place], [address] GFR/1.73 sq M.predicted among non-blacks MDRD (S/P/Bld) [Vol rate/Area] 35 mL/min/{1.73_m2} Low >60 [facility] Comment on above: Result Comment: mL/m in/1.73m2 CKD-EPI Creatinine Equation (2020) Performed By: #### L 100.0100, L500.2500, L503.6005 ####[facility] [address] [place], [address] Glucose [Mass/Vol] 239 mg/dL High 70-99 [facility] Comment on above: Performed By: #### L 100.0100, L500.2500, L503.6005 ####[facility] [address] [place], [address] Potassium [Moles/Vol] 4.3 mmol/L Normal 3.3-5.1 [facility] Comment on above: Performed By: #### L 100.0100, L500.2500, L503.6005 ####[facility] [address] [place], [address] Sodium [Moles/Vol] 135 mmol/L Normal 133-145 [facility] Comment on above: Performed By: #### L 100.0100, L500.2500, L503.6005 ####[facility] [address] [place], [address] Urea nitrogen [Mass/Vol] 21 mg/dL High 4-19 [facility] Comment on above: Performed By: #### L 100.0100, L500.2500, L503.6005 ####[facility] [address] [place], [address] Basophil percentageOrdered B y: Nick Leonides on 10-13-2024 Basophils/100 WBC (Bld) 0.9 % 0-1 [facility] Bilirubin Test strip Ql (U)O rdered By: Nickronan Coyle on 10-13-2024 Bilirubin Ql (U) Negative Negative [facility] Blood cultureOrdered By: Ousmane ferraro Leonides on 10-13-2024 Bacteria identified Cx Nom (Bld) No growth in 5 days. [facility] CBC W/Diff, Automatedon 10-02-2024 Absolute Lymph 1.75 X10 3/uL Normal 0.83-4.51 [facility] Comment on above: Performed By: #### L 100.0100, L500.2500, L503.6005 ####[facility] [address] [place], [address] Absolute Neut 5.5 X10 3/uL Normal 2.0-7.7 [facility] Comment on above: Performed By: #### L 100.0100, L500.2500, L503.6005 ####[facility] [address] [place], [address] Basophils/100 WBC (Bld) 0.9 % Normal 0-1 [facility] Comment on above: Performed By: #### L 100.0100, L500.2500, L503.6005 ####[facility] [address] [place], [address] Eosinophils/100 WBC (Bld) 2.9 % Normal 0-5 [facility] Comment on above: Performed By: #### L 100.0100, L500.2500, L503.6005 ####[facility] [address] [place], [address] Erythrocyte distribution width (RBC) [Ratio] 14.6 % Normal 11.6-14.6 [facility] Comment on above: Performed By: #### L 100.0100, L500.2500, L503.6005 ####[facility] [address] [place], [address] Hematocrit (Bld) [Volume fraction] 42.8 % Normal 40-54 [facility] Comment on above: Performed By: #### L 100.0100, L500.2500, L503.6005 ####[facility] [address] [place], [address] Hemoglobin (Bld) [Mass/Vol] 14.0 g/dL Normal 13.0-16.5 [facility] Comment on above: Performed By: #### L 100.0100, L500.2500, L503.6005 ####[facility] [address] [place], [address] IG% 1.000 High 0.0-0.9 [facility] Comment on above: Result Comment: IG% - Immature Granulocytes (promyelocytes, myelocytes andmetamyelocytes) > 1% indicates that a LEFT SHIFT is Present. Performed By: #### L 100.0100, L500.2500, L503.6005 ####[facility] [address] [place], [address] Lymphocytes/100 WBC (Bld) 21.5 % Normal 19-41 [facility] Comment on above: Performed By: #### L 100.0100, L500.2500, L503.6005 ####[facility] [address] [place], [address] MCH (RBC) [Entitic mass] 30.5 pg Normal 27.0-32.0 [facility] Comment on above: Performed By: #### L 100.0100, L500.2500, L503.6005 ####[facility] [address] [place], [address] MCHC (RBC) [Mass/Vol] 32.7 g/dL Normal 32-36 [facility] Comment on above: Performed By: #### L 100.0100, L500.2500, L503.6005 ####[facility] [address] [place], [address] MCV (RBC) [Entitic vol] 93.2 fL Normal 80-94 [facility] Comment on above: Performed By: #### L 100.0100, L500.2500, L503.6005 ####[facility] [address] [place], [address] Monocytes/100 WBC (Bld) 6.6 % Normal 0-10 [facility] Comment on above: Performed By: #### L 100.0100, L500.2500, L503.6005 ####[facility] [address] [place], [address] Neutrophils/100 WBC (Bld) 67.1 % Normal 47-70 [facility] Comment on above: Performed By: #### L 100.0100, L500.2500, L503.6005 ####[facility] [address] [place], [address] Nucleated RBC (Bld) [#/Vol] 0 10*3/uL Normal 0-5 [facility] Comment on above: Performed By: #### L 100.0100, L500.2500, L503.6005 ####[facility] [address] [place], [address] Platelet mean volume (Bld) [Entitic vol] 9.1 fL Normal 6.2-12.0 [facility] Comment on above: Performed By: #### L 100.0100, L500.2500, L503.6005 ####[facility] [address] [place], [address] Platelets (Bld) [#/Vol] 142 10*3/uL Low 150-450 [facility] Comment on above: Performed By: #### L 100.0100, L500.2500, L503.6005 ####[facility] [address] [place], [address] RBC (Bld) [#/Vol] 4.59 10*6/uL Low 4.6-6.2 [facility] Comment on above: Performed By: #### L 100.0100, L500.2500, L503.6005 ####[facility] [address] [place], [address] RDW SD 50.2 fl High 35.1-43.9 [facility] Comment on above: Performed By: #### L 100.0100, L500.2500, L503.6005 ####[facility] [address] [place], [address] WBC (Bld) [#/Vol] 8.1 10*3/uL Normal 4.4-11.0 [facility] Comment on above: Performed By: #### L 100.0100, L500.2500, L503.6005 ####[facility] [address] [place], [address] Carbon dioxide, total [Moles /volume] in Central venous bloodOrdered By: Nick Coyle on 10-13-2024 CO2 [Moles/Vol] 19.3 mmol/L Low 21.0-32.0 [facility] Chloride assayOrdered By: Cecil Coyle on 10-13-2024 Chloride [Moles/Vol] 101 mmol/L 98-108 [facility] Emergency Department Summary on 10-13-2024 Emergency Department Summary Normal [facility] Eosinophil percentageOrdered By: Nick Coyle on 10-13-2024 Eosinophils/100 WBC (Bld) 2.9 % 0-5 [facility] Erythrocyte distribution wid th ratioOrdered By: Nick Coyle on 10-13-2024 Erythrocyte distribution width (RBC) [Ratio] 14.6 % 11.6-14.6 [facility] Erythrocyte distribution wid th standard deviationOrdered By: Nick Ortzi on 10-13-2024 Erythrocyte distribution width (RBC) [Ratio] 50.2 fl High 35.1-43.9 [facility] Glomerular filtration rate ( GFR) estimation/1.73 sq m using serum, plasma, or whole bOrdered By: Nick Coyle on 10-13-2024 GFR/1.73 sq M.predicted among non-blacks MDRD (S/P/Bld) [Vol rate/Area] 35 mL/min/{1.73_m2} Low >60 [facility] Comment on above: mL/min/1.73m2 CKD-EP I Creatinine Equation (2020) H AND P Exam - [facility] 10-13-2024 H&P Exam - Hospitalist Normal [facility] Hematocrit Auto (Bld) [Volum e fraction]Ordered By: Nick Coyle on 10-13-2024 Hematocrit (Bld) [Volume fraction] 42.8 % 40-54 [facility] Hemoglobin measurementOrdere d By: Nick Coyle on 10-13-2024 Hemoglobin (Bld) [Mass/Vol] 14.0 g/dL 13.0-16.5 [facility] Immature granulocytes/100 WB C Auto (Bld)Ordered By: Nick Coyle on 10-13-2024 Immature granulocytes/100 WBC (Bld) 1.000 % High 0.0-0.9 [facility] Comment on above: IG% - Immature Granu locytes (promyelocytes, myelocytes and metamyelocytes) > 1% indicates that a LEFT SHIFT is Present. Ketones Test strip Ql (U)Ord ered By: Nick Coyle on 10-13-2024 Ketones Ql (U) Negative Negative [facility] Lactic Acidon 10-13-2024 Lactate [Moles/Vol] 3.7 mmol/L Invalid Interpretation Code 0.0-2.0 [facility] Comment on above: Order Comment: Y Result Comment: Crit ical Result(s) Called EFINK at: 2118 by:CORAL??Results read back by same. Performed By: #### L 100.0100, L500.2500, L503.6005 ####[facility] [address] [place], [address] MCV (mean corpuscular volume ) determinationOrdered By: Nick Coyle on 10-13-2024 MCV (RBC) [Entitic vol] 93.2 fL 80-94 [facility] Mean corpuscular hemoglobin (MCH) determinationOrdered By: [facility] on 10-13-2024 MCH (RBC) [Entitic mass] 30.5 pg 27.0-32.0 [facility] Mean corpuscular hemoglobin concentration (MCHC) determinationOrdered By: Nickronan Coyle on 10-13-2024 MCHC (RBC) [Mass/Vol] 32.7 g/dL 32-36 [facility] Mean platelet volume determi nationOrdered By: Nick Coyle on 10-13-2024 Platelet mean volume (Bld) [Entitic vol] 9.1 fL 6.2-12.0 [facility] Microscopic analysis of urin e for red blood cells (RBC)Ordered By: Nick Coyle on 10-13-2024 Microscopic analysis of urine for red blood cells (RBC) 0 SEEN /hpf 0-5 [facility] Monocyte percentageOrdered B y: Nick Coyle on 10-13-2024 Monocytes/100 WBC (Bld) 6.6 % 0-10 [facility] Mucus LM Ql (Urine sed)Order ed By: Nick Coyle on 10-13-2024 Mucus Ql (Urine sed) 0 SEEN /hpf [facility] Neutrophil percentageOrdered By: Nick Leonides on 10-13-2024 Neutrophils/100 WBC (Bld) 67.1 % 47-70 [facility] Nitrite Test strip Ql (U)Ord ered By: Nick Coyle on 10-13-2024 Nitrite Ql (U) Negative Negative [facility] Nucleated red blood cell per centageOrdered By: Nick Coyle on 10-13-2024 Nucleated RBC/100 WBC (Bld) [Ratio] 0 % 0-5 [facility] Platelet countOrdered By: Cecil Coyle on 10-13-2024 Platelets (Bld) [#/Vol] 142 10*3/uL Low 150-450 [facility] Potassium measurement (mass/ volume)Ordered By: Nick Coyle on 10-13-2024 Potassium (Unsp spec) [Mass/Vol] 4.3 mmol/L 3.3-5.1 [facility] Protein Test strip Ql (U)Ord ered By: Nick Coyle on 10-13-2024 Protein Ql (U) 100 mg/dl High Negative [facility] RBC Auto (Bld) [#/Vol]Ordere d By: Nick Coyle on 10-13-2024 RBC (Bld) [#/Vol] 4.59 10*6/uL Low 4.6-6.2 [facility] Serum creatinine measurement (mass/volume)Ordered By: Nick Coyle on 10-13-2024 Creatinine [Mass/Vol] 1.96 mg/dL High 0.70-1.20 [facility] Serum glucose measurement (m ass/volume)Ordered By: Nick Coyle on 10-13-2024 Glucose [Mass/Vol] 239 mg/dL High 70-99 [facility] Serum or plasma calcium maricel urement (mass/volume)Ordered By: Nick Ortiz on 10-13-2024 Calcium [Mass/Vol] 8.9 mg/dL 7.6-11.0 [facility] Serum or plasma urea nitroge n measurement (mass/volume)Ordered By: Nick Coyle on 10-13-2024 Urea nitrogen [Mass/Vol] 21 mg/dL High 4-19 [facility] Sodium levelOrdered By: Kvng Coyle on 10-13-2024 Sodium [Moles/Vol] 135 mmol/L 133-145 [facility] Squamous epithelial cells de tection in urine sediment by light microscopyOrdered By: Nick Coyle on 10-13-2024 Epithelial cells.squamous LM Ql (Urine sed) 0 SEEN /hpf 0-5 [facility] Urinalysis, Completeon 10-13 WBC >100 SEEN Normal 0-5 [facility] Comment on above: Order Comment: CLEAN CATCH Result Comment: Micr oscopic field is filled. Other elements may beobscured. Performed By: #### L 400.0001 ####[facility] [address] [place], [address] BACTERIA 0 SEEN Normal None Seen [facility] Comment on above: Order Comment: CLEAN CATCH Performed By: #### L 400.0001 ####[facility] [address] [place], [address] EPI,SQUAMOUS 0 SEEN Normal 0-5 [facility] Comment on above: Order Comment: CLEAN CATCH Performed By: #### L 400.0001 ####[facility] [address] [place], [address] Mucus Ql (Urine sed) 0 SEEN Normal [facility] Comment on above: Order Comment: CLEAN CATCH Performed By: #### L 400.0001 ####[facility] [address] [place], [address] RBC 0 SEEN Normal 0-5 [facility] Comment on above: Order Comment: CLEAN CATCH Performed By: #### L 400.0001 ####[facility] [address] [place], [address] Urine clarityOrdered By: Ousmane Coyle on 10-13-2024 Clarity (U) Turbid Clear [facility] Urine color determinationOrd ered By: Nick Coyle on 10-13-2024 Color (U) Yellow Yellow [facility] Urine cultureOrdered By: Ousmane Coyle on 10-13-2024 Bacteria identified Cx Nom (U) Yeast, not Callie albicans Abnormal [facility] Urine glucose detectionOrder ed By: Nick Coyle on 10-13-2024 Glucose Ql (U) 1000 mg/dl High Normal [facility] Urine leukocyte esterase det ection by dipstickOrdered By: Nick Coyle on 10-13-2024 Leukocyte esterase Test strip Ql (U) 500 /ul High Negative [facility] Urine pHOrdered By: Nick Resendiz on 10-13-2024 pH (U) 6.0 [pH] 5.0 - 8.0 [facility] Urine sediment bacteria coun t by microscopy (number/high power field)Ordered By: Nick Coyle on 10-13-2024 Bacteria LM.HPF (Urine sed) [#/Area] 0 /[HPF] None Seen [facility] Urine specific gravity measu rementOrdered By: Nickronan Coyle on 10-13-2024 Specific gravity (U) [Rel density] 1.020 1.002-1.030 [facility] Urine urobilinogen measureme ntOrdered By: Nick Martín on 10-13-2024 Urobilinogen Ql (U) Normal mg/dl Normal [facility] White blood cell (WBC) count Ordered By: Nick Coyle on 10-13-2024 WBC (Bld) [#/Vol] 8.1 10*3/uL 4.4-11.0 [facility] White blood cell countOrdere d By: Nick Coyle on 10-13-2024 White blood cell count >100 SEEN /hpf 0-5 [facility] Comment on above: Microscopic field is filled. Other elements may be obscured. Culture, Blood (WB)on 2024 [facility] Blood cultures x2, from two different sites No growth in 5 days. Normal [facility] Comment on above: Performed By: #### L 300.4310, L500.4050, L509.7001, M200.1000, L100.0100, L503.6005, L300.3900 ####[facility] [address] [place], [address] Basic Metabolic Profile (BMP )on 08-24-2024 BUN Normal 4-19 [facility] Comment on above: Result Comment: Canc elled via OM: Order cancelled - Patient discharged Performed By: #### L 500.2500, L100.0100 ####[facility] [address] [place], [address] BUN/CRE Normal 10-20 [facility] Comment on above: Result Comment: Canc elled via OM: Order cancelled - Patient discharged Performed By: #### L 500.2500, L100.0100 ####[facility] [address] [place], [address] Calcium Normal 7.6-11.0 [facility] Comment on above: Result Comment: Canc elled via OM: Order cancelled - Patient discharged Performed By: #### L 500.2500, L100.0100 ####[facility] [address] [place], [address] CL Normal 98-108 [facility] Comment on above: Result Comment: Canc elled via OM: Order cancelled - Patient discharged Performed By: #### L 500.2500, L100.0100 ####[facility] [address] [place], [address] CO2 Normal 21.0-32.0 [facility] Comment on above: Result Comment: Canc elled via OM: Order cancelled - Patient discharged Performed By: #### L 500.2500, L100.0100 ####[facility] [address] [place], [address] CREAT,SERUM Normal 0.70-1.20 [facility] Comment on above: Result Comment: Canc elled via OM: Order cancelled - Patient discharged Performed By: #### L 500.2500, L100.0100 ####[facility] [address] [place], [address] eGFR Normal >60 [facility] Comment on above: Result Comment: Canc elled via OM: Order cancelled - Patient discharged Performed By: #### L 500.2500, L100.0100 ####[facility] [address] [place], [address] GAP Normal 5-15 [facility] Comment on above: Result Comment: Canc elled via OM: Order cancelled - Patient discharged Performed By: #### L 500.2500, L100.0100 ####[facility] [address] [place], [address] GLU Normal 70-99 [facility] Comment on above: Result Comment: Canc elled via OM: Order cancelled - Patient discharged Performed By: #### L 500.2500, L100.0100 ####[facility] [address] [place], [address] Potassium Normal 3.3-5.1 [facility] Comment on above: Result Comment: Canc elled via OM: Order cancelled - Patient discharged Performed By: #### L 500.2500, L100.0100 ####[facility] [address] [place], [address] Basic Metabolic Profile (BMP) Normal 133-145 [facility] Comment on above: Result Comment: Canc elled via OM: Order cancelled - Patient discharged Performed By: #### L 500.2500, L100.0100 ####[facility] [address] [place], [address] CBC W/Diff, Automatedon 04-2 Absolute Neut Normal 2.0-7.7 [facility] Comment on above: Result Comment: Canc elled via OM: Order cancelled - Patient discharged Performed By: #### L 500.2500, L100.0100 ####[facility] [address] [place], [address] HCT Normal 40-54 [facility] Comment on above: Result Comment: Canc elled via OM: Order cancelled - Patient discharged Performed By: #### L 500.2500, L100.0100 ####[facility] [address] [place], [address] HGB Normal 13.0-16.5 [facility] Comment on above: Result Comment: Canc elled via OM: Order cancelled - Patient discharged Performed By: #### L 500.2500, L100.0100 ####[facility] [address] [place], [address] MCH Normal 27.0-32.0 [facility] Comment on above: Result Comment: Canc elled via OM: Order cancelled - Patient discharged Performed By: #### L 500.2500, L100.0100 ####[facility] [address] [place], [address] MCHC Normal 32-36 [facility] Comment on above: Result Comment: Canc elled via OM: Order cancelled - Patient discharged Performed By: #### L 500.2500, L100.0100 ####[facility] [address] [place], [address] MCV Normal 80-94 [facility] Comment on above: Result Comment: Canc elled via OM: Order cancelled - Patient discharged Performed By: #### L 500.2500, L100.0100 ####[facility] [address] [place], [address] NEUT% Normal 47-70 [facility] Comment on above: Result Comment: Canc elled via OM: Order cancelled - Patient discharged Performed By: #### L 500.2500, L100.0100 ####[facility] [address] [place], [address] PLT Normal 150-450 [facility] Comment on above: Result Comment: Canc elled via OM: Order cancelled - Patient discharged Performed By: #### L 500.2500, L100.0100 ####[facility] [address] [place], [address] RBC Normal 4.6-6.2 [facility] Comment on above: Result Comment: Canc elled via OM: Order cancelled - Patient discharged Performed By: #### L 500.2500, L100.0100 ####[facility] [address] [place], [address] RDW CV Normal 11.6-14.6 [facility] Comment on above: Result Comment: Canc elled via OM: Order cancelled - Patient discharged Performed By: #### L 500.2500, L100.0100 ####[facility] [address] [place], [address] RDW SD Normal 35.1-43.9 [facility] Comment on above: Result Comment: Canc elled via OM: Order cancelled - Patient discharged Performed By: #### L 500.2500, L100.0100 ####[facility] [address] [place], [address] WBC Normal 4.4-11.0 [facility] Comment on above: Result Comment: Canc elled via OM: Order cancelled - Patient discharged Performed By: #### L 500.2500, L100.0100 ####[facility] [address] [place], [address] Absolute lymphocyte countOrd ered By: Mao Muse on 08-23-2024 Lymphocytes Auto (Unsp spec) [#/Vol] 1.69 10*3/uL 0.83-4.51 [facility] Absolute neutrophil countOrd ered By: Mao Muse on 08-23-2024 Neutrophils (Bld) [#/Vol] 3.3 10*3/uL 2.0-7.7 [facility] Anion gap in Serum or Plasma Ordered By: Mao Muse on 08-23-2024 Anion gap [Moles/Vol] 10 mmol/L 5-15 [facility] Automated lymphocyte count a s percentage of total leukocytesOrdered By: Mao Muse on 08-23-2024 Lymphocytes/100 WBC Auto (Unsp spec) 28.5 % 19-41 [facility] BUN/creatinine ratioOrdered By: Mao Muse on 08-23-2024 Urea nitrogen/Creatinine [Mass ratio] 9.0 mg/mg Low - [facility] Basic Metabolic Profile (BMP )on 08-23-2024 BUN/CRE 9.0 RATIO Low 10- [facility] Comment on above: Performed By: #### L 100.0100, L500.2500 ####[facility] [address] [place], [address] Calcium [Mass/Vol] 8.6 mg/dL Normal 7.6-11.0 [facility] Comment on above: Performed By: #### L 100.0100, L500.2500 ####[facility] [address] [place], [address] Chloride [Moles/Vol] 105 mmol/L Normal 98-108 [facility] Comment on above: Performed By: #### L 100.0100, L500.2500 ####[facility] [address] [place], [address] CO2 [Moles/Vol] 21.6 mmol/L Normal 21.0-32.0 [facility] Comment on above: Performed By: #### L 100.0100, L500.2500 ####[facility] [address] [place], [address] Creatinine [Mass/Vol] 1.46 mg/dL High 0.70-1.20 [facility] Comment on above: Performed By: #### L 100.0100, L500.2500 ####[facility] [address] [place], [address] ECRCL 61.10 ml/min Normal 50-250 [facility] Comment on above: Performed By: #### L 100.0100, L500.2500 ####[facility] [address] [place], [address] GAP 10 Normal 5-15 [facility] Comment on above: Performed By: #### L 100.0100, L500.2500 ####[facility] [address] [place], [address] GFR/1.73 sq M.predicted among non-blacks MDRD (S/P/Bld) [Vol rate/Area] 50 mL/min/{1.73_m2} Low >60 [facility] Comment on above: Result Comment: mL/m in/1.73m2 CKD-EPI Creatinine Equation (2020) Performed By: #### L 100.0100, L500.2500 ####[facility] [address] [place], [address] Glucose [Mass/Vol] 159 mg/dL High 70-99 [facility] Comment on above: Performed By: #### L 100.0100, L500.2500 ####[facility] [address] [place], [address] Potassium [Moles/Vol] 4.0 mmol/L Normal 3.3-5.1 [facility] Comment on above: Performed By: #### L 100.0100, L500.2500 ####[facility] [address] [place], [address] Sodium [Moles/Vol] 136 mmol/L Normal 133-145 [facility] Comment on above: Performed By: #### L 100.0100, L500.2500 ####[facility] [address] [place], [address] Urea nitrogen [Mass/Vol] 13 mg/dL Normal 4-19 [facility] Comment on above: Performed By: #### L 100.0100, L500.2500 ####[facility] [address] [place], [address] Basophil percentageOrdered B y: Mao Muse on 08-23-2024 Basophils/100 WBC (Bld) 1.0 % 0-1 [facility] Bedside Glucoseon 08-23-2024 FINGERSTICK GLU 178 mg/dL High 74-106 [facility] Comment on above: Result Comment: NITZA GEMENT OF PATIENT CARE PER NURSING PROTOCOL Performed By: #### L 501.080 ####[facility] [address] [place], [address] FINGERSTICK GLU 148 mg/dL High 74-106 [facility] Comment on above: Result Comment: NITZA GEMENT OF PATIENT CARE PER NURSING PROTOCOL Performed By: #### L 501.080 ####[facility] [address] [place], [address] CBC W/Diff, Automatedon 08-03 Absolute Lymph 1.69 X10 3/uL Normal 0.83-4.51 [facility] Comment on above: Performed By: #### L 100.0100, L500.2500 ####[facility] [address] [place], [address] Absolute Neut 3.3 X10 3/uL Normal 2.0-7.7 [facility] Comment on above: Performed By: #### L 100.0100, L500.2500 ####[facility] [address] [place], [address] Basophils/100 WBC (Bld) 1.0 % Normal 0-1 [facility] Comment on above: Performed By: #### L 100.0100, L500.2500 ####[facility] [address] [place], [address] Eosinophils/100 WBC (Bld) 5.1 % High 0-5 [facility] Comment on above: Performed By: #### L 100.0100, L500.2500 ####[facility] [address] [place], [address] Erythrocyte distribution width (RBC) [Ratio] 14.8 % High 11.6-14.6 [facility] Comment on above: Performed By: #### L 100.0100, L500.2500 ####[facility] [address] [place], [address] Hematocrit (Bld) [Volume fraction] 35.5 % Low 40-54 [facility] Comment on above: Performed By: #### L 100.0100, L500.2500 ####[facility] [address] [place], [address] Hemoglobin (Bld) [Mass/Vol] 11.7 g/dL Low 13.0-16.5 [facility] Comment on above: Performed By: #### L 100.0100, L500.2500 ####[facility] [address] [place], [address] IG% 1.000 High 0.0-0.9 [facility] Comment on above: Result Comment: IG% - Immature Granulocytes (promyelocytes, myelocytes andmetamyelocytes) > 1% indicates that a LEFT SHIFT is Present. Performed By: #### L 100.0100, L500.2500 ####[facility] [address] [place], [address] Lymphocytes/100 WBC (Bld) 28.5 % Normal 19-41 [facility] Comment on above: Performed By: #### L 100.0100, L500.2500 ####[facility] [address] [place], [address] MCH (RBC) [Entitic mass] 30.9 pg Normal 27.0-32.0 [facility] Comment on above: Performed By: #### L 100.0100, L500.2500 ####[facility] [address] [place], [address] MCHC (RBC) [Mass/Vol] 33.0 g/dL Normal 32-36 [facility] Comment on above: Performed By: #### L 100.0100, L500.2500 ####[facility] [address] [place], [address] MCV (RBC) [Entitic vol] 93.7 fL Normal 80-94 [facility] Comment on above: Performed By: #### L 100.0100, L500.2500 ####[facility] [address] [place], [address] Monocytes/100 WBC (Bld) 8.1 % Normal 0-10 [facility] Comment on above: Performed By: #### L 100.0100, L500.2500 ####[facility] [address] [place], [address] Neutrophils/100 WBC (Bld) 56.3 % Normal 47-70 [facility] Comment on above: Performed By: #### L 100.0100, L500.2500 ####[facility] [address] [place], [address] Nucleated RBC (Bld) [#/Vol] 0 10*3/uL Normal 0-5 [facility] Comment on above: Performed By: #### L 100.0100, L500.2500 ####[facility] [address] [place], [address] Platelet mean volume (Bld) [Entitic vol] 8.8 fL Normal 6.2-12.0 [facility] Comment on above: Performed By: #### L 100.0100, L500.2500 ####[facility] [address] [place], [address] Platelets (Bld) [#/Vol] 103 10*3/uL Low 150-450 [facility] Comment on above: Performed By: #### L 100.0100, L500.2500 ####[facility] [address] [place], [address] RBC (Bld) [#/Vol] 3.79 10*6/uL Low 4.6-6.2 [facility] Comment on above: Performed By: #### L 100.0100, L500.2500 ####[facility] [address] [place], [address] RDW SD 50.6 fl High 35.1-43.9 [facility] Comment on above: Performed By: #### L 100.0100, L500.2500 ####[facility] [address] [place], [address] WBC (Bld) [#/Vol] 5.9 10*3/uL Normal 4.4-11.0 [facility] Comment on above: Performed By: #### L 100.0100, L500.2500 ####[facility] [address] [place], [address] Carbon dioxide, total [Moles /volume] in Central venous bloodOrdered By: Mao Muse on 08-23-2024 CO2 [Moles/Vol] 21.6 mmol/L 21.0-32.0 [facility] Chloride assayOrdered By: Aarti Muse on 08-23-2024 Chloride [Moles/Vol] 105 mmol/L 98-108 [facility] Discharge Instructionon 08-03 Discharge Instruction Normal [facility] Eosinophil percentageOrdered By: Mao Muse on 08-23-2024 Eosinophils/100 WBC (Bld) 5.1 % High 0-5 [facility] Erythrocyte distribution wid th ratioOrdered By: Mao Muse on 08-23-2024 Erythrocyte distribution width (RBC) [Ratio] 14.8 % High 11.6-14.6 [facility] Erythrocyte distribution wid th standard deviationOrdered By: Mao Muse on 08-23-2024 Erythrocyte distribution width (RBC) [Ratio] 50.6 fl High 35.1-43.9 [facility] Glomerular filtration rate ( GFR) estimation/1.73 sq m using serum, plasma, or whole bOrdered By: Mao Muse on 08-23-2024 GFR/1.73 sq M.predicted among non-blacks MDRD (S/P/Bld) [Vol rate/Area] 50 mL/min/{1.73_m2} Low >60 [facility] Comment on above: mL/min/1.73m2 CKD-EP I Creatinine Equation (2020) [facility] By: Mao Muse on 08-23-2024 Glucose [Mass/Vol] 178 mg/dL High 74-106 [facility] Comment on above: MANAGEMENT OF PATIEN T CARE PER NURSING PROTOCOL Hematocrit Auto (Bld) [Volum e fraction]Ordered By: Mao Muse on 08-23-2024 Hematocrit (Bld) [Volume fraction] 35.5 % Low 40-54 [facility] Hemoglobin measurementOrdere d By: Mao Muse on 08-23-2024 Hemoglobin (Bld) [Mass/Vol] 11.7 g/dL Low 13.0-16.5 [facility] Immature granulocytes/100 WB C Auto (Bld)Ordered By: Mao Muse on 08-23-2024 Immature granulocytes/100 WBC (Bld) 1.000 % High 0.0-0.9 [facility] Comment on above: IG% - Immature Granu locytes (promyelocytes, myelocytes and metamyelocytes) > 1% indicates that a LEFT SHIFT is Present. MCV (mean corpuscular volume ) determinationOrdered By: Mao Muse on 08-23-2024 MCV (RBC) [Entitic vol] 93.7 fL 80-94 [facility] Mean corpuscular hemoglobin (MCH) determinationOrdered By: Mao Muse on 08-23-2024 MCH (RBC) [Entitic mass] 30.9 pg 27.0-32.0 [facility] Mean corpuscular hemoglobin concentration (MCHC) determinationOrdered By: Mao Muse on 08-23-2024 MCHC (RBC) [Mass/Vol] 33.0 g/dL 32-36 [facility] Mean platelet volume determi nationOrdered By: Mao Muse on 08-23-2024 Platelet mean volume (Bld) [Entitic vol] 8.8 fL 6.2-12.0 [facility] Monocyte percentageOrdered B y: Mao Muse on 08-23-2024 Monocytes/100 WBC (Bld) 8.1 % 0-10 [facility] Neutrophil percentageOrdered By: Mao Muse on 08-23-2024 Neutrophils/100 WBC (Bld) 56.3 % 47-70 [facility] Nucleated red blood cell per centageOrdered By: Mao Muse on 08-23-2024 Nucleated RBC/100 WBC (Bld) [Ratio] 0 % 0-5 [facility] Platelet countOrdered By: Aarti Muse on 08-23-2024 Platelets (Bld) [#/Vol] 103 10*3/uL Low 150-450 [facility] Potassium measurement (mass/ volume)Ordered By: Mao Muse on 08-23-2024 Potassium (Unsp spec) [Mass/Vol] 4.0 mmol/L 3.3-5.1 [facility] Protein+Creatinine Ratio,Uri neon 08-23-2024 PROT:CRE RATIO 718 mg/g CRE High 0-200 [facility] Comment on above: Performed By: #### L 501.0900 ####[facility] [address] [place], [address] Protein (U) [Mass/Vol] 44.6 mg/dL High 0.0-12.0 [facility] Comment on above: Performed By: #### L 501.0900 ####[facility] [address] [place], [address] UR CREAT 62.10 mg/dL Normal 39.00-259.00 [facility] Comment on above: Performed By: #### L 501.0900 ####[facility] [address] [place], [address] RBC Auto (Bld) [#/Vol]Ordere d By: Mao Muse on 08-23-2024 RBC (Bld) [#/Vol] 3.79 10*6/uL Low 4.6-6.2 [facility] Serum creatinine measurement (mass/volume)Ordered By: Mao Muse on 08-23-2024 Creatinine [Mass/Vol] 1.46 mg/dL High 0.70-1.20 [facility] Serum glucose measurement (m ass/volume)Ordered By: Mao Muse on 08-23-2024 Glucose [Mass/Vol] 159 mg/dL High 70-99 [facility] Serum or plasma calcium maricel urement (mass/volume)Ordered By: Mao Muse on 08-23-2024 Calcium [Mass/Vol] 8.6 mg/dL 7.6-11.0 [facility] Serum or plasma urea nitroge n measurement (mass/volume)Ordered By: Mao Muse on 08-23-2024 Urea nitrogen [Mass/Vol] 13 mg/dL 4-19 [facility] Sodium levelOrdered By: Ericka Muse on 08-23-2024 Sodium [Moles/Vol] 136 mmol/L 133-145 [facility] Urine Cultureon 08-23-2024 URC Normal [facility] Comment on above: Performed By: #### M 100.2200, M100.678, L400.0001 ####[facility] [address] [place], [place], [id number] White blood cell (WBC) count Ordered By: Mao Muse on 08-23-2024 WBC (Bld) [#/Vol] 5.9 10*3/uL 4.4-11.0 [facility] Bedside Glucoseon 08-22-2024 FINGERSTICK GLU 206 mg/dL High 74-106 [facility] Comment on above: Result Comment: NITZA GEMENT OF PATIENT CARE PER NURSING PROTOCOL Performed By: #### L 501.080 ####[facility] [address] [place], [place], [id number] FINGERSTICK GLU 194 mg/dL High 74-106 [facility] Comment on above: Result Comment: NITZA GEMENT OF PATIENT CARE PER NURSING PROTOCOL Performed By: #### L 501.080 ####[facility] [address] [place], [address] FINGERSTICK GLU 178 mg/dL High 74-106 [facility] Comment on above: Result Comment: NITZA GEMENT OF PATIENT CARE PER NURSING PROTOCOL Performed By: #### L 501.080 ####[facility] [address] [place], [address] FINGERSTICK GLU 160 mg/dL High 74-106 [facility] Comment on above: Result Comment: NITZA GEMENT OF PATIENT CARE PER NURSING PROTOCOL Performed By: #### L 501.080 ####[facility] [address] [place], [address] Consultation - Infectious Dx on 08-22-2024 Consultation - Infectious Dx Normal [facility] Consultation - Nephrologyon 08-22-2024 Consultation - Nephrology Normal [facility] Random urine creatinine maricel urement (mass/volume)Ordered By: Cassy Stevenson on 08-22-2024 Creatinine Unsp time (U) [Mass/Vol] 62.10 mg/dL 39.00-259.00 [facility] Urine protein measurement (m ass/volume)Ordered By: Cassy Stevenson on 08-22-2024 Protein (U) [Mass/Vol] 44.6 mg/dL High 0.0-12.0 [facility] Urine protein/creatinine mas s ratioOrdered By: Cassy Stevenson on 08-22-2024 Protein/Creatinine (U) [Mass ratio] 718 mg/g CRE High 0-200 [facility] Basic Metabolic Profile (BMP )on 08-21-2024 BUN/CRE 10.9 RATIO Normal 10-20 [facility] Comment on above: Performed By: #### L 100.0500, L500.2500 ####[facility] [facility] [address] [place], [address] Calcium [Mass/Vol] 8.0 mg/dL Normal 7.6-11.0 [facility] Comment on above: Performed By: #### L 100.0500, L500.2500 ####[facility] [address] [place], [address] Chloride [Moles/Vol] 107 mmol/L Normal 98-108 [facility] Comment on above: Performed By: #### L 100.0500, L500.2500 ####[facility] [address] [place], [address] CO2 [Moles/Vol] 20.3 mmol/L Low 21.0-32.0 [facility] Comment on above: Performed By: #### L 100.0500, L500.2500 ####[facility] [address] [place], [address] Creatinine [Mass/Vol] 1.76 mg/dL High 0.70-1.20 [facility] Comment on above: Performed By: #### L 100.0500, L500.2500 ####[facility] [address] [place], [address] ECRCL 50.20 ml/min Normal 50-250 [facility] Comment on above: Performed By: #### L 100.0500, L500.2500 ####[facility] [address] [place], [address] GAP 10 Normal 5-15 [facility] Comment on above: Performed By: #### L 100.0500, L500.2500 ####[facility] [address] [place], [address] GFR/1.73 sq M.predicted among non-blacks MDRD (S/P/Bld) [Vol rate/Area] 40 mL/min/{1.73_m2} Low >60 [facility] Comment on above: Result Comment: mL/m in/1.73m2 CKD-EPI Creatinine Equation (2020) Performed By: #### L 100.0500, L500.2500 ####[facility] [address] [place], [address] Glucose [Mass/Vol] 144 mg/dL High 70-99 [facility] Comment on above: Performed By: #### L 100.0500, L500.2500 ####[facility] [address] [place], [address] Potassium [Moles/Vol] 4.2 mmol/L Normal 3.3-5.1 [facility] Comment on above: Performed By: #### L 100.0500, L500.2500 ####[facility] [address] [place], [address] Sodium [Moles/Vol] 137 mmol/L Normal 133-145 [facility] Comment on above: Performed By: #### L 100.0500, L500.2500 ####[facility] [address] [place], [address] Urea nitrogen [Mass/Vol] 19 mg/dL Normal 4-19 [facility] Comment on above: Performed By: #### L 100.0500, L500.2500 ####[facility] [address] [place], [address] Bedside Glucoseon 08-21-2024 FINGERSTICK GLU 254 mg/dL High 74-106 [facility] Comment on above: Result Comment: NITZA GEMENT OF PATIENT CARE PER NURSING PROTOCOL Performed By: #### L 501.080 ####[facility] [address] [place], [address] FINGERSTICK GLU 203 mg/dL High 74-106 [facility] Comment on above: Result Comment: NITZA GEMENT OF PATIENT CARE PER NURSING PROTOCOL Performed By: #### L 501.080 ####[facility] [address] [place], [address] FINGERSTICK GLU 162 mg/dL High 74-106 [facility] Comment on above: Result Comment: NITZA GEMENT OF PATIENT CARE PER NURSING PROTOCOL Performed By: #### L 501.080 ####[facility] [address] [place], [address] CBC-Complete Blood Cnt No Di ffon 08-21-2024 Erythrocyte distribution width (RBC) [Ratio] 15.0 % High 11.6-14.6 [facility] Comment on above: Performed By: #### L 100.0500, L500.2500 ####[facility] [address] [place], [address] Hematocrit (Bld) [Volume fraction] 31.6 % Low 40-54 [facility] Comment on above: Performed By: #### L 100.0500, L500.2500 ####[facility] [address] [place], [address] Hemoglobin (Bld) [Mass/Vol] 10.7 g/dL Low 13.0-16.5 [facility] Comment on above: Performed By: #### L 100.0500, L500.2500 ####[facility] [address] [place], [address] MCH (RBC) [Entitic mass] 31.0 pg Normal 27.0-32.0 [facility] Comment on above: Performed By: #### L 100.0500, L500.2500 ####[facility] [address] [place], [address] MCHC (RBC) [Mass/Vol] 33.9 g/dL Normal 32-36 [facility] Comment on above: Performed By: #### L 100.0500, L500.2500 ####[facility] [address] [place], [address] MCV (RBC) [Entitic vol] 91.6 fL Normal 80-94 [facility] Comment on above: Performed By: #### L 100.0500, L500.2500 ####[facility] [address] [place], [address] Platelet mean volume (Bld) [Entitic vol] 8.7 fL Normal 6.2-12.0 [facility] Comment on above: Performed By: #### L 100.0500, L500.2500 ####[facility] [address] [place], [address] Platelets (Bld) [#/Vol] 103 10*3/uL Low 150-450 [facility] Comment on above: Performed By: #### L 100.0500, L500.2500 ####[facility] [address] [place], [address] RBC (Bld) [#/Vol] 3.45 10*6/uL Low 4.6-6.2 [facility] Comment on above: Performed By: #### L 100.0500, L500.2500 ####[facility] [address] [place], [address] RDW SD 50.4 fl High 35.1-43.9 [facility] Comment on above: Performed By: #### L 100.0500, L500.2500 ####[facility] [address] [place], [address] WBC (Bld) [#/Vol] 5.9 10*3/uL Normal 4.4-11.0 [facility] Comment on above: Performed By: #### L 100.0500, L500.2500 ####[facility] [address] [place], [address] 12 Lead EKGon 08-20-2024 12 Lead EKG Normal [facility] Amorphous sediment detection in urine sediment by light microscopyOrdered By: Kaushik Brown on 08-20-2024 Amorphous sediment LM Ql (Urine sed) 1+ [facility] Basic Metabolic Profile (BMP )on 08-20-2024 BUN/CRE 10.5 RATIO Normal 10-20 [facility] Comment on above: Performed By: #### L 500.2500 ####[facility] [address] [place], [address] Calcium [Mass/Vol] 7.7 mg/dL Normal 7.6-11.0 [facility] Comment on above: Performed By: #### L 500.2500 ####[facility] [address] [place], [address] Chloride [Moles/Vol] 105 mmol/L Normal 98-108 [facility] Comment on above: Performed By: #### L 500.2500 ####[facility] [address] [place], [address] CO2 [Moles/Vol] 21.3 mmol/L Normal 21.0-32.0 [facility] Comment on above: Performed By: #### L 500.2500 ####[facility] [address] [place], [address] Creatinine [Mass/Vol] 1.89 mg/dL High 0.70-1.20 [facility] Comment on above: Performed By: #### L 500.2500 ####[facility] [address] [place], [address] ECRCL 46.74 ml/min Low 50-250 [facility] Comment on above: Performed By: #### L 500.2500 ####[facility] [address] [place], [address] GAP 9 Normal 5-15 [facility] Comment on above: Performed By: #### L 500.2500 ####[facility] [address] [place], [address] GFR/1.73 sq M.predicted among non-blacks MDRD (S/P/Bld) [Vol rate/Area] 37 mL/min/{1.73_m2} Low >60 [facility] Comment on above: Result Comment: mL/m in/1.73m2 CKD-EPI Creatinine Equation (2020) Performed By: #### L 500.2500 ####[facility] [address] [place], [address] Glucose [Mass/Vol] 212 mg/dL High 70-99 [facility] Comment on above: Performed By: #### L 500.2500 ####[facility] [address] [place], [address] Potassium [Moles/Vol] 4.6 mmol/L Normal 3.3-5.1 [facility] Comment on above: Performed By: #### L 500.2500 ####[facility] [address] [place], [address] Sodium [Moles/Vol] 135 mmol/L Normal 133-145 [facility] Comment on above: Performed By: #### L 500.2500 ####[facility] [address] [place], [address] Urea nitrogen [Mass/Vol] 20 mg/dL High 4-19 [facility] Comment on above: Performed By: #### L 500.2500 ####[facility] [address] [place], [address] Bedside Glucoseon 08-20-2024 FINGERSTICK GLU 203 mg/dL High 74-106 [facility] Comment on above: Result Comment: NITZA GEMENT OF PATIENT CARE PER NURSING PROTOCOL Performed By: #### L 501.080 ####[facility] [address] [place], [address] FINGERSTICK GLU 165 mg/dL High 74-106 [facility] Comment on above: Result Comment: NITZA GEMENT OF PATIENT CARE PER NURSING PROTOCOL Performed By: #### L 501.080 ####[facility] [address] [place], [address] FINGERSTICK GLU 181 mg/dL High 74-106 [facility] Comment on above: Result Comment: NITZA GEMENT OF PATIENT CARE PER NURSING PROTOCOL Performed By: #### L 501.080 ####[facility] [address] [place], [address] FINGERSTICK GLU 214 mg/dL High 74-106 [facility] Comment on above: Result Comment: NITZA GEMENT OF PATIENT CARE PER NURSING PROTOCOL Performed By: #### L 501.080 ####[facility] [address] [place], [address] Bilirubin Test strip Ql (U)O rdered By: Kaushik Brown on 08-20-2024 Bilirubin Ql (U) Negative Negative [facility] Blood cultureOrdered By: Juliano Brown on 08-20-2024 Bacteria identified Cx Nom (Bld) No growth in 5 days. [facility] CBC W/Diff, Automatedon - Absolute Lymph 0.55 X10 3/uL Low 0.83-4.51 [facility] Comment on above: Performed By: #### L 300.4310, L500.4050, L509.7001, M200.1000, L100.0100, L503.6005, L300.3900 ####[facility] [address] [place], [address] Absolute Neut 7.6 X10 3/uL Normal 2.0-7.7 [facility] Comment on above: Performed By: #### L 300.4310, L500.4050, L509.7001, M200.1000, L100.0100, L503.6005, L300.3900 ####[facility] [address] [place], [address] Basophils/100 WBC (Bld) 0.5 % Normal 0-1 [facility] Comment on above: Performed By: #### L 300.4310, L500.4050, L509.7001, M200.1000, L100.0100, L503.6005, L300.3900 ####[facility] [address] [place], [address] Eosinophils/100 WBC (Bld) 0.1 % Normal 0-5 [facility] Comment on above: Performed By: #### L 300.4310, L500.4050, L509.7001, M200.1000, L100.0100, L503.6005, L300.3900 ####[facility] [address] [place], [address] Erythrocyte distribution width (RBC) [Ratio] 14.6 % Normal 11.6-14.6 [facility] Comment on above: Performed By: #### L 300.4310, L500.4050, L509.7001, M200.1000, L100.0100, L503.6005, L300.3900 ####[facility] [address] [place], [address] Hematocrit (Bld) [Volume fraction] 37.4 % Low 40-54 [facility] Comment on above: Performed By: #### L 300.4310, L500.4050, L509.7001, M200.1000, L100.0100, L503.6005, L300.3900 ####[facility] [address] [place], [address] Hemoglobin (Bld) [Mass/Vol] 12.7 g/dL Low 13.0-16.5 [facility] Comment on above: Performed By: #### L 300.4310, L500.4050, L509.7001, M200.1000, L100.0100, L503.6005, L300.3900 ####[facility] [address] [place], [address] IG% 1.000 High 0.0-0.9 [facility] Comment on above: Result Comment: IG% - Immature Granulocytes (promyelocytes, myelocytes andmetamyelocytes) > 1% indicates that a LEFT SHIFT is Present. Performed By: #### L 300.4310, L500.4050, L509.7001, M200.1000, L100.0100, L503.6005, L300.3900 ####[facility] [address] [place], [address] Lymphocytes/100 WBC (Bld) 6.3 % Low 19-41 [facility] Comment on above: Performed By: #### L 300.4310, L500.4050, L509.7001, M200.1000, L100.0100, L503.6005, L300.3900 ####[facility] [address] [place], [address] MCH (RBC) [Entitic mass] 31.1 pg Normal 27.0-32.0 [facility] Comment on above: Performed By: #### L 300.4310, L500.4050, L509.7001, M200.1000, L100.0100, L503.6005, L300.3900 ####[facility] [address] [place], [address] MCHC (RBC) [Mass/Vol] 34.0 g/dL Normal 32-36 [facility] Comment on above: Performed By: #### L 300.4310, L500.4050, L509.7001, M200.1000, L100.0100, L503.6005, L300.3900 ####[facility] [address] [place], [address] MCV (RBC) [Entitic vol] 91.7 fL Normal 80-94 [facility] Comment on above: Performed By: #### L 300.4310, L500.4050, L509.7001, M200.1000, L100.0100, L503.6005, L300.3900 ####[facility] [address] [place], [address] Monocytes/100 WBC (Bld) 4.9 % Normal 0-10 [facility] Comment on above: Performed By: #### L 300.4310, L500.4050, L509.7001, M200.1000, L100.0100, L503.6005, L300.3900 ####[facility] [address] [place], [address] Neutrophils/100 WBC (Bld) 87.2 % High 47-70 [facility] Comment on above: Performed By: #### L 300.4310, L500.4050, L509.7001, M200.1000, L100.0100, L503.6005, L300.3900 ####[facility] [address] [place], [address] Nucleated RBC (Bld) [#/Vol] 0 10*3/uL Normal 0-5 [facility] Comment on above: Performed By: #### L 300.4310, L500.4050, L509.7001, M200.1000, L100.0100, L503.6005, L300.3900 ####[facility] [address] [place], [address] Platelet mean volume (Bld) [Entitic vol] 9.3 fL Normal 6.2-12.0 [facility] Comment on above: Performed By: #### L 300.4310, L500.4050, L509.7001, M200.1000, L100.0100, L503.6005, L300.3900 ####[facility] [address] [place], [address] Platelets (Bld) [#/Vol] 126 10*3/uL Low 150-450 [facility] Comment on above: Performed By: #### L 300.4310, L500.4050, L509.7001, M200.1000, L100.0100, L503.6005, L300.3900 ####[facility] [address] [place], [address] RBC (Bld) [#/Vol] 4.08 10*6/uL Low 4.6-6.2 [facility] Comment on above: Performed By: #### L 300.4310, L500.4050, L509.7001, M200.1000, L100.0100, L503.6005, L300.3900 ####[facility] [address] [place], [address] RDW SD 48.7 fl High 35.1-43.9 [facility] Comment on above: Performed By: #### L 300.4310, L500.4050, L509.7001, M200.1000, L100.0100, L503.6005, L300.3900 ####[facility] [address] [place], [address] WBC (Bld) [#/Vol] 8.7 10*3/uL Normal 4.4-11.0 [facility] Comment on above: Performed By: #### L 300.4310, L500.4050, L509.7001, M200.1000, L100.0100, L503.6005, L300.3900 ####[facility] [address] [place], [address] CTA Chest W/WO Contraston CTA Chest W/WO Contrast Normal [facility] Comprehensive Metabolic Prof ilon 08-20-2024 Albumin [Mass/Vol] 3.6 g/dL Normal 3.4-4.8 [facility] Comment on above: Performed By: #### L 300.4310, L500.4050, L509.7001, M200.1000, L100.0100, L503.6005, L300.3900 ####[facility] [address] [place], [address] Albumin/Globulin [Mass ratio] 1.1 {ratio} Normal 0.9-2.4 [facility] Comment on above: Performed By: #### L 300.4310, L500.4050, L509.7001, M200.1000, L100.0100, L503.6005, L300.3900 ####[facility] [address] [place], [address] ALK PHOS 78 U/L Normal 40-129 [facility] Comment on above: Performed By: #### L 300.4310, L500.4050, L509.7001, M200.1000, L100.0100, L503.6005, L300.3900 ####[facility] [address] [place], [address] ALT [Catalytic activity/Vol] 24 U/L Normal <=46 [facility] Comment on above: Performed By: #### L 300.4310, L500.4050, L509.7001, M200.1000, L100.0100, L503.6005, L300.3900 ####[facility] [address] [place], [address] AST [Catalytic activity/Vol] 29 U/L Normal <=37 [facility] Comment on above: Performed By: #### L 300.4310, L500.4050, L509.7001, M200.1000, L100.0100, L503.6005, L300.3900 ####[facility] [address] [place], [address] Bilirubin [Mass/Vol] 0.76 mg/dL Normal 0.00-1.30 [facility] Comment on above: Performed By: #### L 300.4310, L500.4050, L509.7001, M200.1000, L100.0100, L503.6005, L300.3900 ####[facility] [address] [place], [address] BUN/CRE 9.2 RATIO Low 10-20 [facility] Comment on above: Performed By: #### L 300.4310, L500.4050, L509.7001, M200.1000, L100.0100, L503.6005, L300.3900 ####[facility] [address] [place], [address] Calcium [Mass/Vol] 8.8 mg/dL Normal 7.6-11.0 [facility] Comment on above: Performed By: #### L 300.4310, L500.4050, L509.7001, M200.1000, L100.0100, L503.6005, L300.3900 ####[facility] [address] [place], [address] Chloride [Moles/Vol] 100 mmol/L Normal 98-108 [facility] Comment on above: Performed By: #### L 300.4310, L500.4050, L509.7001, M200.1000, L100.0100, L503.6005, L300.3900 ####[facility] [address] [place], [address] CO2 [Moles/Vol] 19.8 mmol/L Low 21.0-32.0 [facility] Comment on above: Performed By: #### L 300.4310, L500.4050, L509.7001, M200.1000, L100.0100, L503.6005, L300.3900 ####[facility] [address] [place], [address] Creatinine [Mass/Vol] 1.90 mg/dL High 0.70-1.20 [facility] Comment on above: Performed By: #### L 300.4310, L500.4050, L509.7001, M200.1000, L100.0100, L503.6005, L300.3900 ####[facility] [address] [place], [address] ECRCL 45.50 ml/min Low 50-250 [facility] Comment on above: Performed By: #### L 300.4310, L500.4050, L509.7001, M200.1000, L100.0100, L503.6005, L300.3900 ####[facility] [address] [place], [address] GAP 14 Normal 5-15 [facility] Comment on above: Performed By: #### L 300.4310, L500.4050, L509.7001, M200.1000, L100.0100, L503.6005, L300.3900 ####[facility] [address] [place], [address] GFR/1.73 sq M.predicted among non-blacks MDRD (S/P/Bld) [Vol rate/Area] 36 mL/min/{1.73_m2} Low >60 [facility] Comment on above: Result Comment: mL/m in/1.73m2 CKD-EPI Creatinine Equation (2020) Performed By: #### L 300.4310, L500.4050, L509.7001, M200.1000, L100.0100, L503.6005, L300.3900 ####[facility] [address] [place], [address] Globulin (S) [Mass/Vol] 3.4 g/dL Normal 2.2-4.2 [facility] Comment on above: Performed By: #### L 300.4310, L500.4050, L509.7001, M200.1000, L100.0100, L503.6005, L300.3900 ####[facility] [address] [place], [address] Glucose [Mass/Vol] 245 mg/dL High 70-99 [facility] Comment on above: Performed By: #### L 300.4310, L500.4050, L509.7001, M200.1000, L100.0100, L503.6005, L300.3900 ####[facility] [address] [place], [address] Potassium [Moles/Vol] 5.3 mmol/L High 3.3-5.1 [facility] Comment on above: Performed By: #### L 300.4310, L500.4050, L509.7001, M200.1000, L100.0100, L503.6005, L300.3900 ####[facility] [address] [place], [address] Sodium [Moles/Vol] 133 mmol/L Normal 133-145 [facility] Comment on above: Performed By: #### L 300.4310, L500.4050, L509.7001, M200.1000, L100.0100, L503.6005, L300.3900 ####[facility] [address] [place], [address] T PROT 7.0 g/dL Normal 5.9-8.4 [facility] Comment on above: Performed By: #### L 300.4310, L500.4050, L509.7001, M200.1000, L100.0100, L503.6005, L300.3900 ####[facility] [address] [place], [address] Urea nitrogen [Mass/Vol] 17 mg/dL Normal 4-19 [facility] Comment on above: Performed By: #### L 300.4310, L500.4050, L509.7001, M200.1000, L100.0100, L503.6005, L300.3900 ####[facility] [address] [place], [address] Consultation - Intensiviston 04-19-2025 Consultation - Vamp Presser Normal [facility] Emergency Department Summary on 08-20-2024 Emergency Department Summary Normal [facility] Epithelial cells.squamous LM Ql (Urine sed)Ordered By: Kaushik Brown on 08-20-2024 Epithelial cells.squamous LM.HPF (Urine sed) [#/Area] 0 /[HPF] 0-5 [facility] Glucose Ql (U)Ordered By: Dede Brown on 08-20-2024 Glucose (U) [Mass/Vol] 1000 mg/dL High Normal [facility] H AND P Exam - Hospitaliston 08-20-2024 H&P Exam - Hospitalist Normal [facility] Influenza virus A and B and SARS-CoV-2 (COVID-19) and Respiratory syncytial virus RNAOrdered By: Kaushik Brown on 08-20-2024 SARS-CoV-2 (COVID-19) RNA LIV+probe Ql (Unsp spec) [facility] Ketones Test strip Ql (U)Ord ered By: Kaushik Brown on 08-20-2024 Ketones Ql (U) 5 mg/dl High Negative [facility] Kidney and Bladderon 025 Kidney and Bladder Normal [facility] L509.7001on 08-20-2024 Procalcitonin 0.32 ng/mL High <=0.10 [facility] Comment on above: Result Comment: Inte rpretation:<0.10-0.25 [...] 300.4310, L500.4050, L509.7001, M200.1000, L100.0100, L503.6005, L300.3900 ####[facility] [address] [place], [address] Lactic Acidon 08-20-2024 Lactate [Moles/Vol] 1.4 mmol/L Normal 0.0-2.0 [facility] Comment on above: Order Comment: Y Performed By: #### L 503.6005 ####[facility] [address] [place], [place], [address] Lactate [Moles/Vol] 3.4 mmol/L Invalid Interpretation Code 0.0-2.0 [facility] Comment on above: Order Comment: Y Result Comment: Crit ical Result(s) Called at 0048: by: ALANNA PEREZ??Results read back by same. Performed By: #### L 300.4310, L500.4050, L509.7001, M200.1000, L100.0100, L503.6005, L300.3900 ####[facility] [address] [place], [address] Lactic acid measurementOrder ed By: Kaushik Sykes on 08-20-2024 Lactate [Moles/Vol] 1.4 mmol/L 0.0-2.0 [facility] M100.678on 08-20-2024 M100.678 SARS-CoV-2 (COVID 19 ) Negative INFLUENZA A Negative INFLUENZA B Negative RSV PCR Negative Normal [facility] Comment on above: Performed By: #### M 100.2200, M100.678, L400.0001 ####[facility] [address] [place], [address] Microscopic analysis of urin e for red blood cells (RBC)Ordered By: Kaushik Brown on 08-20-2024 Microscopic analysis of urine for red blood cells (RBC) > 100 SEEN /hpf 0-5 [facility] Urine RBC > 100 SEEN /hpf 0-5 [facility] Mucus LM Ql (Urine sed)Order ed By: Kaushik Brown on 08-20-2024 Mucus Ql (Urine sed) RARE /hpf [facility] Nitrite Test strip Ql (U)Ord ered By: Kaushik Brown on 08-20-2024 Nitrite Ql (U) Negative Negative [facility] Partial Thromboplast Timeon 08-20-2024 aPTT Coag (Bld) [Time] 32.3 s Normal 24.1-36.2 [facility] Comment on above: Performed By: #### L 300.4310, L500.4050, L509.7001, M200.1000, L100.0100, L503.6005, L300.3900 ####[facility] [address] [place], [address] Protein Test strip Ql (U)Ord ered By: Kaushik Brown on 08-20-2024 Protein Ql (U) 100 mg/dl High Negative [facility] Prothrombin Time w/INRon INR Coag (PPP) [Relative time] 1.6 {INR} Normal [facility] Comment on above: Performed By: #### L 300.4310, L500.4050, L509.7001, M200.1000, L100.0100, L503.6005, L300.3900 ####[facility] [address] [place], [address] PT Coag (PPP) [Time] 19.2 s High 11.7-14.9 [facility] Comment on above: Performed By: #### L 300.4310, L500.4050, L509.7001, M200.1000, L100.0100, L503.6005, L300.3900 ####[facility] [address] [place], [address] Squamous epithelial cells de tection in urine sediment by light microscopyOrdered By: Kaushik Brown on 08-20-2024 Epithelial cells.squamous LM Ql (Urine sed) 0-5 SEEN /hpf 0-5 [facility] Urinalysis, Completeon 08-20 AMORPHOUS 1+ Normal [facility] Comment on above: Order Comment: COLOR OF URINE MAY AFFECT DIPSTICK RESULTS.CATHETER SPECIMEN Performed By: #### M 100.2200, M100.678, L400.0001 ####[facility] [address] [place], [address] Mucus Ql (Urine sed) RARE Normal [facility] Comment on above: Order Comment: COLOR OF URINE MAY AFFECT DIPSTICK RESULTS.CATHETER SPECIMEN Performed By: #### M 100.2200, M100.678, L400.0001 ####[facility] [address] [place], [address] BACTERIA 2+ /hpf Normal None Seen [facility] Comment on above: Order Comment: COLOR OF URINE MAY AFFECT DIPSTICK RESULTS.CATHETER SPECIMEN Performed By: #### M 100.2200, M100.678, L400.0001 ####[facility] [address] [place], [address] EPI,SQUAMOUS 0-5 SEEN Normal 0-5 [facility] Comment on above: Order Comment: COLOR OF URINE MAY AFFECT DIPSTICK RESULTS.CATHETER SPECIMEN Performed By: #### M 100.2200, M100.678, L400.0001 ####[facility] [address] [place], [address] RBC > 100 SEEN Normal 0-5 [facility] Comment on above: Order Comment: COLOR OF URINE MAY AFFECT DIPSTICK RESULTS.CATHETER SPECIMEN Performed By: #### M 100.2200, M100.678, L400.0001 ####[facility] [address] [place], [address] WBC >100 SEEN Normal 0-5 [facility] Comment on above: Order Comment: COLOR OF URINE MAY AFFECT DIPSTICK RESULTS.CATHETER SPECIMEN Performed By: #### M 100.2200, M100.678, L400.0001 ####[facility] [address] [place], [address] BILIRUBIN URINE Negative Normal Negative [facility] Comment on above: Order Comment: COLOR OF URINE MAY AFFECT DIPSTICK RESULTS.CATHETER SPECIMEN Performed By: #### M 100.2200, M100.678, L400.0001 ####[facility] [address] [place], [address] Clarity (U) Cloudy Normal Clear [facility] Comment on above: Order Comment: COLOR OF URINE MAY AFFECT DIPSTICK RESULTS.CATHETER SPECIMEN Performed By: #### M 100.2200, M100.678, L400.0001 ####[facility] [address] [place], [address] Color (U) Stephanie Normal Yellow [facility] Comment on above: Order Comment: COLOR OF URINE MAY AFFECT DIPSTICK RESULTS.CATHETER SPECIMEN Performed By: #### M 100.2200, M100.678, L400.0001 ####[facility] [address] [place], [address] GLUCOSE, UR 1000 mg/dl Abnormal Normal [facility] Comment on above: Order Comment: COLOR OF URINE MAY AFFECT DIPSTICK RESULTS.CATHETER SPECIMEN Performed By: #### M 100.2200, M100.678, L400.0001 ####[facility] [address] [place], [address] KETONE UR 5 mg/dl Abnormal Negative [facility] Comment on above: Order Comment: COLOR OF URINE MAY AFFECT DIPSTICK RESULTS.CATHETER SPECIMEN Performed By: #### M 100.2200, M100.678, L400.0001 ####[facility] [address] [place], [address] LEUK ESTERASE 500 /ul Abnormal Negative [facility] Comment on above: Order Comment: COLOR OF URINE MAY AFFECT DIPSTICK RESULTS.CATHETER SPECIMEN Performed By: #### M 100.2200, M100.678, L400.0001 ####[facility] [address] [place], [address] Nitrite Ql (U) Negative Normal Negative [facility] Comment on above: Order Comment: COLOR OF URINE MAY AFFECT DIPSTICK RESULTS.CATHETER SPECIMEN Performed By: #### M 100.2200, M100.678, L400.0001 ####[facility] [address] [place], [address] OCCULT BLOOD-UR 250 /ul Abnormal Negative [facility] Comment on above: Order Comment: COLOR OF URINE MAY AFFECT DIPSTICK RESULTS.CATHETER SPECIMEN Performed By: #### M 100.2200, M100.678, L400.0001 ####[facility] [address] [place], [address] pH UR 6.0 Normal 5.0 - 8.0 [facility] Comment on above: Order Comment: COLOR OF URINE MAY AFFECT DIPSTICK RESULTS.CATHETER SPECIMEN Performed By: #### M 100.2200, M100.678, L400.0001 ####[facility] [address] [place], [address] PROT DIPSTX 100 mg/dl Abnormal Negative [facility] Comment on above: Order Comment: COLOR OF URINE MAY AFFECT DIPSTICK RESULTS.CATHETER SPECIMEN Performed By: #### M 100.2200, M100.678, L400.0001 ####[facility] [address] [place], [address] SP.GR. DIPSTX 1.010 Normal 1.002-1.030 [facility] Comment on above: Order Comment: COLOR OF URINE MAY AFFECT DIPSTICK RESULTS.CATHETER SPECIMEN Performed By: #### M 100.2200, M100.678, L400.0001 ####[facility] [address] [place], [address] UROBILI Normal Normal Normal [facility] Comment on above: Order Comment: COLOR OF URINE MAY AFFECT DIPSTICK RESULTS.CATHETER SPECIMEN Performed By: #### M 100.2200, M100.678, L400.0001 ####[facility] [address] [place], [address] Urine blood detectionOrdered By: Kaushik Brown on 08-20-2024 Urine Occult Blood 250 /ul High Negative [facility] Urine clarityOrdered By: Juliano Brown on 08-20-2024 Clarity (U) Cloudy Clear [facility] Urine color determinationOrd ered By: Kaushik Brown on 08-20-2024 Color (U) Stephanie Yellow [facility] Urine cultureOrdered By: Juliano Brown on 08-20-2024 Bacteria identified Cx Nom (U) Yeast, not Callie albicans Abnormal [facility] Bacteria identified Cx Nom (U) Positive Abnormal [facility] Urine glucose detectionOrder ed By: Kaushik Brown on 08-20-2024 Glucose Ql (U) 1000 mg/dl High Normal [facility] Urine leukocyte esterase det ection by dipstickOrdered By: Kaushik Brown on 08-20-2024 Leukocyte esterase Test strip Ql (U) 500 /ul High Negative [facility] Urine pHOrdered By: Kaushik morales on 08-20-2024 pH (U) 6.0 [pH] 5.0 - 8.0 [facility] Urine sediment bacteria coun t by microscopy (number/high power field)Ordered By: Kaushik Brown on 08-20-2024 Bacteria LM.HPF (Urine sed) [#/Area] 2 /[HPF] None Seen [facility] Urine specific gravity measu rementOrdered By: Kaushik Brown on 08-20-2024 Specific gravity (U) [Rel density] 1.010 1.002-1.030 [facility] Urine urobilinogen measureme ntOrdered By: Kaushik Brown on 08-20-2024 Urobilinogen Ql (U) Normal mg/dl Normal [facility] Urobilinogen Ql (U)Ordered B y: Kaushik Brown on 08-20-2024 Urine Urobilinogen Normal mg/dl Normal [facility] White blood cell countOrdere d By: Kaushik Brown on 08-20-2024 Urine WBC >100 SEEN /hpf 0-5 [facility] White blood cell count >100 SEEN /hpf 0-5 [facility] Absolute neutrophil countOrd ered By: Kaushik Brown on 08-19-2024 Neutrophils (Bld) [#/Vol] 7.6 10*3/uL 2.0-7.7 [facility] Activated partial thrombopla stin time (aPTT) in platelet poor plasma by coagulation aOrdered By: Kaushik Brown on 08-19-2024 aPTT Coag (PPP) [Time] 32.3 s 24.1-36.2 [facility] Anion gap in Serum or Plasma Ordered By: Kaushik Brown on 08-19-2024 Anion gap [Moles/Vol] 14 mmol/L 5-15 [facility] BUN/creatinine ratioOrdered By: Kaushik Brown on 08-19-2024 Urea nitrogen/Creatinine [Mass ratio] 9.2 mg/mg Low 10-20 [facility] Basophil percentageOrdered B y: Kaushik Brown on 08-19-2024 Basophils/100 WBC (Bld) 0.5 % 0-1 [facility] Bilirubin, totalOrdered By: Kaushik Brown on 08-19-2024 Bilirubin [Mass/Vol] 0.76 mg/dL 0.00-1.30 [facility] Blood cultureOrdered By: Juliano Brown on 08-19-2024 Bacteria identified Cx Nom (Bld) No growth in 5 days. [facility] Carbon dioxide, total [Moles /volume] in Central venous bloodOrdered By: Kaushik Brown on 08-19-2024 CO2 [Moles/Vol] 19.8 mmol/L Low 21.0-32.0 [facility] Chloride assayOrdered By: Dede Brown on 08-19-2024 Chloride [Moles/Vol] 100 mmol/L 98-108 [facility] Eosinophil percentageOrdered By: Kaushik Brown on 08-19-2024 Eosinophils/100 WBC (Bld) 0.1 % 0-5 [facility] Erythrocyte distribution wid th (RBC) [Ratio]Ordered By: Kaushik Brown on 08-19-2024 Erythrocyte distribution width (RBC) [Entitic vol] 48.7 fL High 35.1-43.9 [facility] Erythrocyte distribution wid th ratioOrdered By: Kaushik Brown on 08-19-2024 Erythrocyte distribution width (RBC) [Ratio] 14.6 % 11.6-14.6 [facility] Estimation of creatinine joy aranceOrdered By: Kaushik Brown on 08-19-2024 Estimated Creatinine Clearance Calc 45.50 ml/min Low 50-250 [facility] GFR/1.73 sq M.predicted [place] non-blacks MDRD (S/P/Bld) [Vol rate/Area]Ordered By: Kaushik Brown on 08-19-2024 Estimated GFR (MDRD) Non-Af Amer 36 Low >60 [facility] Comment on above: mL/min/1.73m2 CKD-EP I Creatinine Equation (2020) Hematocrit Auto (Bld) [Volum e fraction]Ordered By: Kaushik Brown on 08-19-2024 Hematocrit (Bld) [Volume fraction] 37.4 % Low 40-54 [facility] Hemoglobin measurementOrdere d By: Kaushik Brown on 08-19-2024 Hemoglobin (Bld) [Mass/Vol] 12.7 g/dL Low 13.0-16.5 [facility] Immature granulocytes/100 WB C Auto (Bld)Ordered By: Kaushik Brown on 08-19-2024 Immature granulocytes/100 WBC (Bld) 1.000 % High 0.0-0.9 [facility] Comment on above: IG% - Immature Granu locytes (promyelocytes, myelocytes and metamyelocytes) > 1% indicates that a LEFT SHIFT is Present. International normalized rat io (INR) calculationOrdered By: Kaushik Brown on 08-19-2024 INR Coag (Bld) [Relative time] 1.6 {INR} [facility] Laboratory - Chemistry and C hemistry - challengeOrdered By: Kaushik Brown on 08-19-2024 AST [Catalytic activity/Vol] 29 U/L <38 [facility] Lactic acid measurementOrder ed By: Kaushik Brown on 08-19-2024 Lactate [Moles/Vol] 3.4 mmol/L High 0.0-2.0 [facility] Comment on above: Critical Result(s) C alled at 0048: by: NBURNS TO LSPARR Results read back by same. Lymphocytes Auto (Unsp spec) [#/Vol]Ordered By: Kaushik Brown on 08-19-2024 Lymphocytes (Bld) [#/Vol] 0.55 10*3/uL Low 0.83-4.51 [facility] Lymphocytes/100 WBC Auto (Un sp spec)Ordered By: Kaushik Brown on 08-19-2024 Lymphocytes/100 WBC (Bld) 6.3 % Low 19-41 [facility] MCV (mean corpuscular volume ) determinationOrdered By: Kaushik Brown on 08-19-2024 MCV (RBC) [Entitic vol] 91.7 fL 80-94 [facility] Mean corpuscular hemoglobin (MCH) determinationOrdered By: Kaushik Brown on 08-19-2024 MCH (RBC) [Entitic mass] 31.1 pg 27.0-32.0 [facility] Mean corpuscular hemoglobin concentration (MCHC) determinationOrdered By: Kaushik Brown on 08-19-2024 MCHC (RBC) [Mass/Vol] 34.0 g/dL 32-36 [facility] Mean platelet volume determi nationOrdered By: Kaushik Brown on 08-19-2024 Platelet mean volume (Bld) [Entitic vol] 9.3 fL 6.2-12.0 [facility] Monocyte percentageOrdered B y: Kaushik Brown on 08-19-2024 Monocytes/100 WBC (Bld) 4.9 % 0-10 [facility] Neutrophil percentageOrdered By: Kaushik Brown on 08-19-2024 Neutrophils/100 WBC (Bld) 87.2 % High 47-70 [facility] Nucleated red blood cell per centageOrdered By: Kaushik Brown on 08-19-2024 Nucleated RBC/100 WBC (Bld) [Ratio] 0 % 0-5 [facility] Platelet countOrdered By: Dede Brown on 08-19-2024 Platelets (Bld) [#/Vol] 126 10*3/uL Low 150-450 [facility] Potassium (Unsp spec) [Mass/ Vol]Ordered By: Kaushik Brown on 08-19-2024 Potassium [Moles/Vol] 5.3 mmol/L High 3.3-5.1 [facility] Procalcitonin IA [Mass/Vol]O rdered By: Kaushik Brown on 08-19-2024 Procalcitonin 0.32 ng/mL High <0.11 [facility] Comment on above: Interpretation:<0.10 -0.25 ng/mL: Antibiotic [...] Procalcitonin IA [Mass/Vol] 0.32 ng/mL High <0.11 [facility] Comment on above: Interpretation:<0.10 -0.25 ng/mL: Antibiotic [...] Coag (PPP) [Time] 19.2 s High 11.7-14.9 [facility] RBC Auto (Bld) [#/Vol]Ordere d By: Kaushik Brown on 08-19-2024 RBC (Bld) [#/Vol] 4.08 10*6/uL Low 4.6-6.2 [facility] Serum creatinine measurement (mass/volume)Ordered By: Kaushik Brown on 08-19-2024 Creatinine [Mass/Vol] 1.90 mg/dL High 0.70-1.20 [facility] Serum globulin measurementOr dered By: Kaushik Brown on 08-19-2024 Globulin (S) [Mass/Vol] 3.4 g/dL 2.2-4.2 [facility] Serum glucose measurement (m ass/volume)Ordered By: Kaushik Brown on 08-19-2024 Glucose [Mass/Vol] 245 mg/dL High 70-99 [facility] Serum or plasma alanine wylie otransferase (ALT) measurementOrdered By: Kaushik Brown on 08-19-2024 ALT [Catalytic activity/Vol] 24 U/L <47 [facility] Serum or plasma albumin maricel urement (mass/volume)Ordered By: Kaushik Brown on 08-19-2024 Albumin [Mass/Vol] 3.6 g/dL 3.4-4.8 [facility] Serum or plasma albumin/glob ulin mass ratioOrdered By: Kaushik Brown on 08-19-2024 Albumin/Globulin [Mass ratio] 1.1 {ratio} 0.9-2.4 [facility] Serum or plasma alkaline ivan sphatase measurementOrdered By: Kaushik Brown on 08-19-2024 ALP [Catalytic activity/Vol] 78 U/L 40-129 [facility] Serum or plasma calcium maricel urement (mass/volume)Ordered By: Kaushik Brown on 08-19-2024 Calcium [Mass/Vol] 8.8 mg/dL 7.6-11.0 [facility] Serum or plasma urea nitroge n measurement (mass/volume)Ordered By: Kaushik Brown on 08-19-2024 Urea nitrogen [Mass/Vol] 17 mg/dL 4-19 [facility] Sodium levelOrdered By: Bill Brown on 08-19-2024 Sodium [Moles/Vol] 133 mmol/L 133-145 [facility] Total proteinOrdered By: Juliano Brown on 08-19-2024 Protein [Mass/Vol] 7.0 g/dL 5.9-8.4 [facility] White blood cell (WBC) count Ordered By: Kaushik Brown on 08-19-2024 WBC (Bld) [#/Vol] 8.7 10*3/uL 4.4-11.0 [facility] aPTT Coag (PPP) [Time]Ordere d By: Kaushik Brown on 08-19-2024 aPTT Coag (Bld) [Time] 32.3 s 24.1-36.2 [facility] Basic Metabolic Profile (BMP )on 03-18-2024 BUN/CRE 13.4 RATIO Normal 10-20 [facility] Comment on above: Performed By: #### L 100.0100, L500.2500, L501.6710, L101.9900 ####[facility] [address] [place], [address] CA,Total 9.2 mg/dL Normal 8.5-10.1 [facility] Comment on above: Performed By: #### L 100.0100, L500.2500, L501.6710, L101.9900 ####[facility] [address] [place], [address] Chloride [Moles/Vol] 107 mmol/L Normal 98-107 [facility] Comment on above: Performed By: #### L 100.0100, L500.2500, L501.6710, L101.9900 ####[facility] [address] [place], [address] CO2 [Moles/Vol] 24.0 mmol/L Normal 21.0-32.0 [facility] Comment on above: Performed By: #### L 100.0100, L500.2500, L501.6710, L101.9900 ####[facility] [address] [place], [address] Creatinine [Mass/Vol] 1.87 mg/dL High 0.70-1.30 [facility] Comment on above: Result Comment: The validity of the calculated GFR GFRAA in patients over70 years has not been determined. Clinical correlation isessential. Performed By: #### L 100.0100, L500.2500, L501.6710, L101.9900 ####[facility] [address] [place], [address] ECRCL 49.07 ml/min Normal [facility] Comment on above: Performed By: #### L 100.0100, L500.2500, L501.6710, L101.9900 ####[facility] [address] [place], [address] EST GFR - AA 46 mL/min Low >60 [facility] Comment on above: Result Comment: Afri can Indian GFR Calc Performed By: #### L 100.0100, L500.2500, L501.6710, L101.9900 ####[facility] [address] [place], [address] GAP 5 Normal 5-15 [facility] Comment on above: Performed By: #### L 100.0100, L500.2500, L501.6710, L101.9900 ####[facility] [address] [place], [address] GFR/1.73 sq M.predicted among non-blacks MDRD (S/P/Bld) [Vol rate/Area] 38 mL/min/{1.73_m2} Low >60 [facility] Comment on above: Result Comment: Non- GFR Calc Performed By: #### L 100.0100, L500.2500, L501.6710, L101.9900 ####[facility] [address] [place], [address] Glucose [Mass/Vol] 199 mg/dL High 74-106 [facility] Comment on above: Result Comment: Fast ing Glucose result greater than or equal to 126 mg/dLsuggests DIABETES MELLITUS per A.D.A. criteria. Performed By: #### L 100.0100, L500.2500, L501.6710, L101.9900 ####[facility] [address] [place], [address] Potassium [Moles/Vol] 4.8 mmol/L Normal 3.5-5.1 [facility] Comment on above: Performed By: #### L 100.0100, L500.2500, L501.6710, L101.9900 ####[facility] [address] [place], [address] Sodium [Moles/Vol] 136 mmol/L Normal 136-145 [facility] Comment on above: Performed By: #### L 100.0100, L500.2500, L501.6710, L101.9900 ####[facility] [address] [place], [address] Urea nitrogen [Mass/Vol] 25 mg/dL High 7-18 [facility] Comment on above: Performed By: #### L 100.0100, L500.2500, L501.6710, L101.9900 ####[facility] [address] [place], [address] CBC W/Diff, Automatedon 11-05 08-2023 Absolute Lymph 1.47 X10 3/uL Normal 0.83-4.51 [facility] Comment on above: Performed By: #### L 100.0100, L500.2500, L501.6710, L101.9900 ####[facility] [address] [place], [address] Absolute Neut 4.7 X10 3/uL Normal 2.0-7.7 [facility] Comment on above: Performed By: #### L 100.0100, L500.2500, L501.6710, L101.9900 ####[facility] [address] [place], [address] Basophils/100 WBC (Bld) 0.6 % Normal 0-1 [facility] Comment on above: Performed By: #### L 100.0100, L500.2500, L501.6710, L101.9900 ####[facility] [address] [place], [address] Eosinophils/100 WBC (Bld) 2.3 % Normal 0-5 [facility] Comment on above: Performed By: #### L 100.0100, L500.2500, L501.6710, L101.9900 ####[facility] [address] [place], [address] Erythrocyte distribution width (RBC) [Ratio] 15.0 % High 11.6-14.6 [facility] Comment on above: Performed By: #### L 100.0100, L500.2500, L501.6710, L101.9900 ####[facility] [address] [place], [address] Hematocrit (Bld) [Volume fraction] 41.8 % Normal 40-54 [facility] Comment on above: Performed By: #### L 100.0100, L500.2500, L501.6710, L101.9900 ####[facility] [address] [place], [address] Hemoglobin (Bld) [Mass/Vol] 13.7 g/dL Normal 13.0-16.5 [facility] Comment on above: Performed By: #### L 100.0100, L500.2500, L501.6710, L101.9900 ####[facility] [address] [place], [address] IG% 1.000 High 0.0-0.9 [facility] Comment on above: Result Comment: IG% - Immature Granulocytes (promyelocytes, myelocytes andmetamyelocytes) > 1% indicates that a LEFT SHIFT is Present. Performed By: #### L 100.0100, L500.2500, L501.6710, L101.9900 ####[facility] [address] [place], [address] Lymphocytes/100 WBC (Bld) 21.2 % Normal 19-41 [facility] Comment on above: Performed By: #### L 100.0100, L500.2500, L501.6710, L101.9900 ####[facility] [address] [place], [address] MCH (RBC) [Entitic mass] 31.6 pg Normal 27.0-32.0 [facility] Comment on above: Performed By: #### L 100.0100, L500.2500, L501.6710, L101.9900 ####[facility] [address] [place], [address] MCHC (RBC) [Mass/Vol] 32.8 g/dL Normal 32-36 [facility] Comment on above: Performed By: #### L 100.0100, L500.2500, L501.6710, L101.9900 ####[facility] [address] [place], [address] MCV (RBC) [Entitic vol] 96.3 fL High 80-94 [facility] Comment on above: Performed By: #### L 100.0100, L500.2500, L501.6710, L101.9900 ####[facility] [address] [place], [address] Monocytes/100 WBC (Bld) 7.5 % Normal 0-10 [facility] Comment on above: Performed By: #### L 100.0100, L500.2500, L501.6710, L101.9900 ####[facility] [address] [place], [address] Neutrophils/100 WBC (Bld) 67.4 % Normal 47-70 [facility] Comment on above: Performed By: #### L 100.0100, L500.2500, L501.6710, L101.9900 ####[facility] [address] [place], [address] Nucleated RBC (Bld) [#/Vol] 0 10*3/uL Normal 0-5 [facility] Comment on above: Performed By: #### L 100.0100, L500.2500, L501.6710, L101.9900 ####[facility] [address] [place], [address] Platelet mean volume (Bld) [Entitic vol] 9.4 fL Normal 6.2-12.0 [facility] Comment on above: Performed By: #### L 100.0100, L500.2500, L501.6710, L101.9900 ####[facility] [address] [place], [address] Platelets (Bld) [#/Vol] 112 10*3/uL Low 150-450 [facility] Comment on above: Performed By: #### L 100.0100, L500.2500, L501.6710, L101.9900 ####[facility] [address] [place], [address] RBC (Bld) [#/Vol] 4.34 10*6/uL Low 4.6-6.2 [facility] Comment on above: Performed By: #### L 100.0100, L500.2500, L501.6710, L101.9900 ####[facility] [address] [place], [address] RDW SD 53.0 fl High 35.1-43.9 [facility] Comment on above: Performed By: #### L 100.0100, L500.2500, L501.6710, L101.9900 ####[facility] [address] [place], [address] WBC (Bld) [#/Vol] 6.9 10*3/uL Normal 4.4-11.0 [facility] Comment on above: Performed By: #### L 100.0100, L500.2500, L501.6710, L101.9900 ####[facility] [address] [place], [address] CRPon 03-18-2024 C-REACTIVE PROT 26.00 mg/L High 0.0-3.0 [facility] Comment on above: Result Comment: C-Re active Protein (CRP) provides useful information for thediagnosis, therapy and monitoring of inflammatory processesand associated diseases. For the evaluation of Relative Riskfor Cardiovascular Disease, a High Sensitivity CRP (HSCRP)should be ordered. Performed By: #### L 100.0100, L500.2500, L501.6710, L101.9900 ####[facility] [address] [place], [address] Chest PA and Lateralon 03-18 Chest PA and Lateral Normal [facility] Emergency Department Summary on 03-18-2024 Emergency Department Summary Normal [facility] Erythrocyte Sed Rateon 03-18 SED RATE 24 mm/hr High 0-20 [facility] Comment on above: Performed By: #### L 100.0100, L500.2500, L501.6710, L101.9900 ####[facility] [address] [place], [address] Foot min 3 Viewson 4 Foot min 3 Views Normal [facility] Absolute lymphocyte countOrd ered By: Elicia Blair on 11-06-2022 Lymphocytes Auto (Unsp spec) [#/Vol] 1.15 10*3/uL 0.83-4.51 [facility] Basophil percentageOrdered B y: Elicia Blair on 11-06-2022 Basophils/100 WBC (Bld) 0.6 % 0-1 [facility] Chloride [Moles/Vol] 104 mmol/L 98-107 [facility] Eosinophils/100 WBC (Bld) 2.7 % 0-5 [facility] Glucose [Mass/Vol] 310 mg/dL 74-106 [facility] Comment on above: Glucose result great er than or equal to 200 mg/dLsuggests DIABETES MELLITUS per A.D.A. criteria. Neutrophils (Bld) [#/Vol] 4.4 10*3/uL 2.0-7.7 [facility] Neutrophils/100 WBC (Bld) 70.7 % 47-70 [facility] Potassium [Moles/Vol] 4.2 mmol/L 3.5-5.1 [facility] Sodium [Moles/Vol] 137 mmol/L 136-145 [facility] WBC (Bld) [#/Vol] 6.3 10*3/uL 4.4-11.0 [facility] Blood erythrocytes count (nu mber/volume)Ordered By: Elicia Blair on 11-06-2022 RBC (Bld) [#/Vol] 4.45 10*6/uL 4.6-6.2 [facility] Blood hemoglobin measurement (mass/volume)Ordered By: Elicia Blair on 11-06-2022 Hemoglobin (Bld) [Mass/Vol] 13.8 g/dL 13.0-16.5 [facility] Blood lymphocytes/100 leukoc ytesOrdered By: Elicia Blair on 11-06-2022 Lymphocytes/100 WBC (Bld) 18.3 % 19-41 [facility] Blood monocytes/100 leukocyt esOrdered By: Elicia Blair on 11-06-2022 Monocytes/100 WBC (Bld) 6.4 % 0-10 [facility] Blood platelet mean volumeOr dered By: Elicia Blair on 11-06-2022 Platelet mean volume (Bld) [Entitic vol] 8.8 fL 6.2-12.0 [facility] Determination of erythrocyte mean corpuscular volume (MCV)Ordered By: Elicia Blair on 11-06-2022 MCV (RBC) [Entitic vol] 94.6 fL 80-94 [facility] Hematocrit Auto (Bld) [Volum e fraction]Ordered By: Elicia Blair on 11-06-2022 Hematocrit (Bld) [Volume fraction] 42.1 % 40-54 [facility] Laboratory - Chemistry and C hemistry - challengeOrdered By: Elicia Blair on 11-06-2022 CO2 [Moles/Vol] 29.0 mmol/L 21.0-32.0 [facility] Urea nitrogen/Creatinine [Mass ratio] 11.6 mg/mg 10-20 [facility] Laboratory - Hematology and Cell countsOrdered By: Elicia Blair on 11-06-2022 Erythrocyte distribution width (RBC) [Entitic vol] 52.6 fL 35.1-43.9 [facility] Erythrocyte distribution width (RBC) [Ratio] 15.2 % 11.6-14.6 [facility] Immature granulocytes/100 WBC (Bld) 1.300 % 0.0-0.9 [facility] Comment on above: IG% - Immature Granu locytes (promyelocytes, myelocytes and metamyelocytes) > 1% indicates that a LEFT SHIFT is Present. MCH (RBC) [Entitic mass] 31.0 pg 27.0-32.0 [facility] Nucleated RBC/100 WBC (Bld) [Ratio] 0 % 0-5 [facility] MCHC Auto (RBC) [Mass/Vol]Or dered By: Elicia Blair on 11-06-2022 MCHC (RBC) [Mass/Vol] 32.8 g/dL 32-36 [facility] No Panel InformationOrdered By: Elicia Blair on 11-06-2022 Estimated Creatinine Clearance Calc 47.67 ml/min [facility] Estimated GFR (MDRD) Amer 65 mL/min >60 [facility] Comment on above: GFR Calc Estimated GFR (MDRD) Non-Af Amer 54 mL/min >60 [facility] Comment on above: Non- GFR Calc Platelets bldOrdered By: Jarrod Blair on 11-06-2022 Platelets (Bld) [#/Vol] 106 10*3/uL 150-450 [facility] Serum or plasma calcium maricel urement (mass/volume)Ordered By: Elicia Blair on 11-06-2022 Calcium [Mass/Vol] 8.6 mg/dL 8.5-10.1 [facility] Serum or plasma creatinine m easurement (mass/volume)Ordered By: Elicia Blair on 11-06-2022 Creatinine [Mass/Vol] 1.38 mg/dL 0.70-1.30 [facility] Comment on above: The validity of the calculated GFR & GFRAA in patients over 70 years has not been determined. Clinical correlation is essential. Serum or plasma urea nitroge n measurement (mass/volume)Ordered By: Elicia Blair on 11-06-2022 Urea nitrogen [Mass/Vol] 16 mg/dL 7-18 [facility] Thin prep Papanicolaou smear with manual screeningOrdered By: Elicia Blair on 11-06-2022 Thin prep Papanicolaou smear with manual screening 4 5-15 [facility] URINE CULTUREon 06-08-2022 Bacteria identified Cx Nom (U) URINE CULTURE NO BACTERIAL GROWTH Normal [facility] Comment on above: Performed By: #### B MP, CBCD #### [facility] [address] [place] [address] URINALYSIS REFLEX TO CULTURE on 06-06-2022 BACTERIA 1+ Abnormal [facility] Comment on above: Order Comment: FAX T O S LOWE [phone] TO PATRIOT Performed By: #### B MP, CBCD #### [facility] [address] [place] [address] Bilirubin Ql (U) Negative Normal Negative [facility] Comment on above: Order Comment: FAX T O S LOWE [phone] TO PATRIOT Performed By: #### B MP, CBCD #### [facility] [address] [place] [address] Clarity (U) Turbid Normal Clear [facility] Comment on above: Order Comment: FAX T O S LOWE [phone] TO PATRIOT Performed By: #### B MP, CBCD #### [facility] [address] [place] [address] Color (U) Yellow Normal Yellow [facility] Comment on above: Order Comment: FAX T O S LOWE [phone] TO PATRIOT Performed By: #### B MP, CBCD #### [facility] [address] [place] [address] Epithelial cells LM Ql (Urine sed) 2-4 Normal [facility] Comment on above: Order Comment: FAX T O S LOWE [phone] TO PATRIOT Performed By: #### B MP, CBCD #### [facility] [address] [place] [address] Glucose Ql (U) 3+ Normal Negative [facility] Comment on above: Order Comment: FAX T O S LOWE [phone] TO PATRIOT Performed By: #### B MP, CBCD #### [facility] [address] [place] [address] Hemoglobin Ql (U) 2+ Abnormal Negative [facility] Comment on above: Order Comment: FAX T O S LOWE [phone] TO PATRIOT Performed By: #### B MP, CBCD #### [facility] [address] [place] [address] KETONE Negative Normal Negative [facility] Comment on above: Order Comment: FAX T O S LOWE [phone] TO PATRIOT Performed By: #### B MP, CBCD #### [facility] [address] [place] [address] LEUKO ESTERASE 2+ Abnormal Negative [facility] Comment on above: Order Comment: FAX T O S LOWE [phone] TO PATRIOT Performed By: #### B MP, CBCD #### [facility] [address] [place] [address] Nitrite Ql (U) Negative Normal Negative [facility] Comment on above: Order Comment: FAX T O S LOWE [phone] TO PATRIOT Performed By: #### B MP, CBCD #### [facility] [address] [place] [address] pH (U) 5.0 [pH] Normal 4.5-8.0 [facility] Comment on above: Order Comment: FAX T O S LOWE [phone] TO PATRIOT Performed By: #### B MP, CBCD #### [facility] [address] [place] [address] Protein Ql (U) 1+ Abnormal Negative [facility] Comment on above: Order Comment: FAX T O S LOWE [phone] TO PATRIOT Performed By: #### B MP, CBCD #### [facility] [address] [place] [address] RBC 5-10 Normal 0-2 [facility] Comment on above: Order Comment: FAX T O S LOWE [phone] TO PATRIOT Performed By: #### B MP, CBCD #### [facility] [address] [place] [address] Specific gravity (U) [Rel density] 1.025 Normal 1.001-1.030 [facility] Comment on above: Order Comment: FAX T O S LOWE [phone] TO PATRIOT Performed By: #### B MP, CBCD #### [facility] [address] [place] [address] URINE REFLEX COMMENT YES Normal NO [facility] Comment on above: Order Comment: FAX T O S LOWE [phone] TO PATRIOT Result Comment: REFL EX CRITERIA MET FOR URINE CULTURE Performed By: #### B MP, CBCD #### [facility] [address] [place] [address] UROBILINOGEN 1.0 E.U./dl Normal 0.0-1.0 [facility] Comment on above: Order Comment: FAX T O S LOWE [phone] TO PATRIOT Performed By: #### B MP, CBCD #### [facility] [address] [place] [address] WBC TNTC Normal 0-5 [facility] Comment on above: Order Comment: FAX T O S LOWE [phone] TO PATRIOT Performed By: #### B MP, CBCD #### [facility] [address] [place] [address] Absolute lymphocyte countOrd ered By: Naresh Sainz on 06-02-2022 Lymphocytes Auto (Unsp spec) [#/Vol] 1.3 10*3/uL 1.10-4.80 [facility] Basic Metabolic Panelon 05-06 0-2022 Anion gap [Moles/Vol] 9.0 mmol/L Normal 3-11 [facility] ([place]) Comment on above: Performed By: #### C D #### [facility] [address] [place] [address] Calcium [Mass/Vol] 8.8 mg/dL Normal 8.5-10.5 [facility] ([place]) Comment on above: Performed By: #### C D #### [facility] [address] [place] [address] Chloride [Moles/Vol] 100 mmol/L Normal 98-107 [facility] ([place]) Comment on above: Performed By: #### C D #### [facility] [address] [place] [address] CO2 [Moles/Vol] 26 mmol/L Normal 21-31 [facility] ([place]) Comment on above: Performed By: #### C D #### [facility] [address] [place] [address] Creatinine [Moles/Vol] 1.3 mg/dL Normal 0.6-1.3 [facility] ([place]) Comment on above: Performed By: #### C D #### [address] [address] Creatinine and Glomerular filtration rate.predicted panel (S/P/Bld) 65 mL/min Normal >60 [facility] ([place]) Comment on above: Performed By: #### C D #### [facility] [address] [place] [address] GFR/1.73 sq M.predicted among non-blacks MDRD (S/P/Bld) [Vol rate/Area] 54 mL/min/{1.73_m2} Normal >60 [facility] ([place]) Comment on above: Performed By: #### C D #### [address] [address] Glucose [Mass/Vol] 153 mg/dL High 70-99 [facility] ([place]) Comment on above: Performed By: #### C D #### [facility] [address] [place] [address] Potassium [Moles/Vol] 3.9 mmol/L Normal 3.6-5.0 [facility] ([place]) Comment on above: Performed By: #### C D #### [facility] [address] [place] [address] Sodium [Moles/Vol] 135 mmol/L Normal 135-145 [facility] ([place]) Comment on above: Performed By: #### C D #### [facility] [address] [place] [address] Urea nitrogen [Mass/Vol] 13 mg/dL Normal 6-20 [facility] ([place]) Comment on above: Performed By: #### C D #### [facility] [address] [place] [address] Basophils Auto (Bld) [#/Vol] Ordered By: Naresh Sainz on 06-02-2022 Basophils (Bld) [#/Vol] 0.0 10*3/uL 0.00-0.20 [facility] Basophils/100 WBC Auto (Bld) Ordered By: Naresh Sainz on 06-02-2022 Basophils/100 WBC (Bld) 0.4 % 0.0-1.5 [facility] Blood magnesium measurement (mass/volume)Ordered By: Naresh Sainz on 06-02-2022 Magnesium (Bld) [Mass/Vol] 1.6 mEq/L 1.6-2.6 [facility] CBC W/ Auto Diffon Basophils (Bld) [#/Vol] 0.0 10*3/uL Normal 0.00-0.20 [facility] ([place]) Comment on above: Performed By: #### C D #### [facility] [address] [place] [address] Basophils/100 WBC (Bld) 0.4 % Normal 0.0-1.5 [facility] ([place]) Comment on above: Performed By: #### C D #### [address] [address] Eosinophils (Bld) [#/Vol] 0.1 10*3/uL Normal 0.00-0.33 [facility] ([place]) Comment on above: Performed By: #### C D #### [facility] [address] [place] [address] Eosinophils/100 WBC (Bld) 0.9 % Normal 0.0-3.0 [facility] ([place]) Comment on above: Performed By: #### C D #### [facility] [address] [place] [address] Erythrocyte distribution width (RBC) [Ratio] 14.8 % High 10.9-14.3 [facility] ([place]) Comment on above: Performed By: #### C D #### [facility] [address] [place] [address] Hematocrit (Bld) [Volume fraction] 39.0 % Low 41.0-50.0 [facility] ([place]) Comment on above: Performed By: #### C D #### [facility] [address] [place] [address] Hemoglobin (Bld) [Mass/Vol] 12.7 g/dL Low 13.5-16.5 [facility] ([place]) Comment on above: Performed By: #### C D #### [facility] [address] [place] [address] Lymphocytes Auto (Unsp spec) [#/Vol] 1.3 10*3/uL Normal 1.10-4.80 [facility] ([place]) Comment on above: Performed By: #### C D #### [address] [address] Lymphocytes/100 WBC (Bld) 16.2 % Low 24.0-44.0 [facility] ([place]) Comment on above: Performed By: #### C D #### [facility] [address] [place] [address] MCH (RBC) [Entitic mass] 28.2 pg Normal 28.0-34.0 [facility] ([place]) Comment on above: Performed By: #### C D #### [facility] [address] [place] [address] MCHC (RBC) [Mass/Vol] 32.7 g/dL Low 33.0-37.0 [facility] ([place]) Comment on above: Performed By: #### C D #### [facility] [address] [place] [address] MCV (RBC) [Entitic vol] 86.1 fL Normal 80.0-100.0 [facility] ([place]) Comment on above: Performed By: #### C D #### [facility] [address] [place] [address] Monocytes (Bld) [#/Vol] 0.8 10*3/uL High 0.20-0.70 [facility] ([place]) Comment on above: Performed By: #### C D #### [facility] [address] [place] [address] Monocytes/100 WBC (Bld) 9.4 % High 3.4-9.0 [facility] ([place]) Comment on above: Performed By: #### C D #### [facility] [address] [place] [address] Neutrophils (Bld) [#/Vol] 6.0 10*3/uL Normal 1.83-8.70 [facility] ([place]) Comment on above: Performed By: #### C D #### [facility] [address] [place] [address] Neutrophils/100 WBC (Bld) 73.1 % Normal 40.0-74.0 [facility] ([place]) Comment on above: Performed By: #### C D #### [facility] [address] [place] [address] Platelet mean volume (Bld) [Entitic vol] 6.6 fL Low 7.4-10.4 [facility] ([place]) Comment on above: Performed By: #### C D #### [facility] [address] [place] [address] Platelets (Bld) [#/Vol] 167 10*3/uL Normal 150-450 [facility] ([place]) Comment on above: Performed By: #### C D #### [facility] [address] [place] [address] RBC (Bld) [#/Vol] 4.53 10*6/uL Normal 4.50-5.50 [facility] ([place]) Comment on above: Performed By: #### C D #### [facility] [address] [place] [address] WBC (Bld) [#/Vol] 8.2 10*3/uL Normal 4.5-11.0 [facility] ([place]) Comment on above: Performed By: #### C D #### [address] [address] Carbon dioxide, total [Moles /volume] in Serum or PlasmaOrdered By: Naresh Sainz on 06-02-2022 CO2 [Moles/Vol] 26 mmol/L 21-31 [facility] Chloride [Moles/volume] in S maricel or PlasmaOrdered By: Naresh Sainz on 06-02-2022 Chloride [Moles/Vol] 100 mmol/L 98-107 [facility] Creatinine and Glomerular fi ltration rate.predicted panel (S/P/Bld)Ordered By: Naresh Sainz on 06-02-2022 GFR/1.73 sq M.predicted MDRD (S/P/Bld) [Vol rate/Area] 65 mL/min/{1.73_m2} >60 [facility] Eosinophils Auto (Bld) [#/Vo l]Ordered By: Naresh Sainz on 06-02-2022 Eosinophils (Bld) [#/Vol] 0.1 10*3/uL 0.00-0.33 [facility] Eosinophils/100 WBC Auto (Bl d)Ordered By: Naresh Sainz on 06-02-2022 Eosinophils/100 WBC (Bld) 0.9 % 0.0-3.0 [facility] Erythrocyte distribution wid th Auto (RBC) [Ratio]Ordered By: Naresh Sainz on 06-02-2022 Erythrocyte distribution width (RBC) [Ratio] 14.8 % 10.9-14.3 [facility] Estimated glomerular filtrat ion rate (GFR) non- AmericanOrdered By: Naresh Sainz on 06-02-2022 GFR/1.73 sq M.predicted among non-blacks MDRD (S/P/Bld) [Vol rate/Area] 54 mL/min/{1.73_m2} >60 [facility] Glucose Glucometer (BldC) [M ass/Vol]on 06-02-2022 Glucose [Mass/Vol] 239 mg/dL Normal 70-99 [facility] ([place]) Comment on above: Performed By: #### 2 1020-3 #### [facility] [address] [place] [address] Glucose [Mass/Vol] 158 mg/dL Normal 70-99 [facility] ([place]) Comment on above: Performed By: #### 4 1653-7 #### [facility] [address] [place] [address] Glucose Glucometer (BldC) [M ass/Vol]Ordered By: Naresh Sainz on 06-02-2022 Glucose [Mass/Vol] 239 mg/dL 70-99 [facility] Hematocrit Auto (Bld) [Volum e fraction]Ordered By: Naresh Sainz on 06-02-2022 Hematocrit (Bld) [Volume fraction] 39.0 % 41.0-50.0 [facility] Hemoglobin A1con 06-02-2022 Average glucose Estimated from glycated hemoglobin (Bld) [Mass/Vol] 235 mg/dL Normal [facility] ([place]) Comment on above: Performed By: #### C D #### [facility] [address] [place], [place] [address] (080) HbA1c (Bld) [Mass fraction] 9.8 % High 4.0-6.0 [facility] ([place]) Comment on above: Performed By: #### C D #### [facility] [address] [place], [place] [address] (822) Hemoglobin [Mass/volume] in BloodOrdered By: Naresh Sainz on 06-02-2022 Hemoglobin (Bld) [Mass/Vol] 12.7 g/dL 13.5-16.5 [facility] Lymphocytes/100 WBC Auto (Bl d)Ordered By: Naresh Sainz on 06-02-2022 Lymphocytes/100 WBC (Bld) 16.2 % 24.0-44.0 [facility] MCH Auto (RBC) [Entitic mass ]Ordered By: Naresh Sainz on 06-02-2022 MCH (RBC) [Entitic mass] 28.2 pg 28.0-34.0 [facility] MCHC Auto (RBC) [Mass/Vol]Or dered By: Naresh Sainz on 06-02-2022 MCHC (RBC) [Mass/Vol] 32.7 g/dL 33.0-37.0 [facility] MCV (mean corpuscular volume ) determinationOrdered By: Naresh Sainz on 06-02-2022 MCV (RBC) [Entitic vol] 86.1 fL 80.0-100.0 [facility] Magnesium Bld-mCncon 023 Magnesium (Bld) [Mass/Vol] 1.6 mEq/L Normal 1.6-2.6 [facility] ([place]) Comment on above: Performed By: #### C D #### [facility] [address] [place], [place] [address] (185) Monocytes Auto (Bld) [#/Vol] Ordered By: Naresh Sainz on 06-02-2022 Monocytes (Bld) [#/Vol] 0.8 10*3/uL 0.20-0.70 [facility] Monocytes/100 WBC Auto (Bld) Ordered By: Naresh Sainz on 06-02-2022 Monocytes/100 WBC (Bld) 9.4 % 3.4-9.0 [facility] Neutrophils Auto (Bld) [#/Vo l]Ordered By: Naresh Sainz on 06-02-2022 Neutrophils (Bld) [#/Vol] 6.0 10*3/uL 1.83-8.70 [facility] Neutrophils/100 WBC Auto (Bl d)Ordered By: Naresh Sainz on 06-02-2022 Neutrophils/100 WBC (Bld) 73.1 % 40.0-74.0 [facility] No Panel InformationOrdered By: Naresh Sainz on 06-02-2022 Anticoagulation Therapy See comment [facility] Comment on above: Suggested Therapy Ra nge: 2.0 - 3.5 Platelet mean volume Auto (B ld) [Entitic vol]Ordered By: Naresh Sainz on 06-02-2022 Platelet mean volume (Bld) [Entitic vol] 6.6 fL 7.4-10.4 [facility] Platelet poor plasma interna tional normalized ratio (INR) by coagulation assay (relatOrdered By: Naresh Sainz on 06-02-2022 INR Coag (PPP) [Relative time] 1.41 {INR} 2.00-3.50 [facility] Platelets Auto (Bld) [#/Vol] Ordered By: Naresh Sainz on 06-02-2022 Platelets (Bld) [#/Vol] 167 10*3/uL 150-450 [facility] Potassium [Moles/volume] in Serum or PlasmaOrdered By: Naresh Sainz on 06-02-2022 Potassium [Moles/Vol] 3.9 mmol/L 3.6-5.0 [facility] Prothrombin Time on Coumadin on 06-02-2022 INR Coag (PPP) [Relative time] 1.41 {INR} Low 2.00-3.50 [facility] ([place]) Comment on above: Performed By: #### 3 2693-4 #### [facility] [address] [place] [address] RBC Auto (Bld) [#/Vol]Ordere d By: Naresh Sainz on 06-02-2022 RBC (Bld) [#/Vol] 4.53 10*6/uL 4.50-5.50 [facility] Reflex Urn Culton 06-02-2022 Bacteria identified Cx Nom (U) ORGANISM ID: 1.1 - Mixed Urogenital Daryn [place] Count >100,000 CFU/ml Normal [facility] ([place]) Comment on above: Performed By: #### 6 30-4 #### [facility] [address] [place] [address] Serum glucose measurement (m ass/volume)Ordered By: Naresh Sainz on 06-02-2022 Glucose [Mass/Vol] 153 mg/dL 70-99 [facility] Serum or plasma anion gap de termination (moles/volume)Ordered By: Naresh Sainz on 06-02-2022 Anion gap [Moles/Vol] 9.0 mmol/L 3-11 [facility] Serum or plasma calcium maricel urement (mass/volume)Ordered By: Naresh Sainz on 06-02-2022 Calcium [Mass/Vol] 8.8 mg/dL 8.5-10.5 [facility] Serum or plasma creatinine m easurement (moles/volume)Ordered By: Naresh Sainz on 06-02-2022 Creatinine [Moles/Vol] 1.3 mg/dL 0.6-1.3 [facility] Serum or plasma sodium measu rement (moles/volume)Ordered By: Naresh Sainz on 06-02-2022 Sodium [Moles/Vol] 135 mmol/L 135-145 [facility] Serum or plasma urea nitroge n measurement (mass/volume)Ordered By: Naresh Sainz on 06-02-2022 Urea nitrogen [Mass/Vol] 13 mg/dL 6-20 [facility] Urine culture routineOrdered By: Thompson Hayden on 06-02-2022 Bacteria identified Cx Nom (U) Mixed Urogenital Daryn [facility] WBC Auto (Bld) [#/Vol]Ordere d By: Naresh Sainz on 06-02-2022 WBC (Bld) [#/Vol] 8.2 10*3/uL 4.5-11.0 [facility] Basic Metabolic Panelon 05-05 Anion gap [Moles/Vol] 6.0 mmol/L Normal 3-11 [facility] ([place]) Comment on above: Performed By: #### 6 30-4 #### [facility] [address] [place] [address] Calcium [Mass/Vol] 8.9 mg/dL Normal 8.5-10.5 [facility] ([place]) Comment on above: Performed By: #### 6 30-4 #### [facility] [address] [place] [address] Chloride [Moles/Vol] 101 mmol/L Normal 98-107 [facility] ([place]) Comment on above: Performed By: #### 6 30-4 #### [facility] [address] [place] [address] CO2 [Moles/Vol] 28 mmol/L Normal 21-31 [facility] ([place]) Comment on above: Performed By: #### 6 30-4 #### [facility] [address] [place] [address] Creatinine [Moles/Vol] 1.3 mg/dL Normal 0.6-1.3 [facility] ([place]) Comment on above: Performed By: #### 6 30-4 #### [facility] [address] [place] [address] Creatinine and Glomerular filtration rate.predicted panel (S/P/Bld) 65 mL/min Normal >60 [facility] ([place]) Comment on above: Performed By: #### 6 30-4 #### [facility] [address] [place] [address] GFR/1.73 sq M.predicted among non-blacks MDRD (S/P/Bld) [Vol rate/Area] 54 mL/min/{1.73_m2} Normal >60 [facility] ([place]) Comment on above: Performed By: #### 6 30-4 #### [facility] [address] [place] [address] Glucose [Mass/Vol] 157 mg/dL High 70-99 [facility] ([place]) Comment on above: Performed By: #### 6 30-4 #### [facility] [address] [place] [address] Potassium [Moles/Vol] 3.8 mmol/L Normal 3.6-5.0 [facility] ([place]) Comment on above: Performed By: #### 6 30-4 #### [facility] [address] [place] [address] Sodium [Moles/Vol] 135 mmol/L Normal 135-145 [facility] ([place] Comment on above: Performed By: #### 6 30-4 #### [facility] [address] [place] [address] Urea nitrogen [Mass/Vol] 15 mg/dL Normal 6-20 [facility] ([place] Comment on above: Performed By: #### 6 30-4 #### [facility] [address] [place] [address] CBC W/ Auto Diffon 3 Basophils (Bld) [#/Vol] 0.1 10*3/uL Normal 0.00-0.20 [facility] ([place]) Comment on above: Performed By: #### 6 30-4 #### [facility] [address] [place] [address] Basophils/100 WBC (Bld) 0.8 % Normal 0.0-1.5 [facility] ([place]) Comment on above: Performed By: #### 6 30-4 #### [facility] [address] [place] [address] Eosinophils (Bld) [#/Vol] 0.2 10*3/uL Normal 0.00-0.33 [facility] ([place] Comment on above: Performed By: #### 6 30-4 #### [facility] [address] [place] [address] Eosinophils/100 WBC (Bld) 3.1 % High 0.0-3.0 [facility] ([place] Comment on above: Performed By: #### 6 30-4 #### [facility] [address] [place] [address] Erythrocyte distribution width (RBC) [Ratio] 14.8 % High 10.9-14.3 [facility] ([place]) Comment on above: Performed By: #### 6 30-4 #### [address] [address] Hematocrit (Bld) [Volume fraction] 37.9 % Low 41.0-50.0 [facility] ([place] Comment on above: Performed By: #### 6 30-4 #### [address] [address] Hemoglobin (Bld) [Mass/Vol] 12.6 g/dL Low 13.5-16.5 [facility] ([place] Comment on above: Performed By: #### 6 30-4 #### [address] [address] Lymphocytes Auto (Unsp spec) [#/Vol] 1.5 10*3/uL Normal 1.10-4.80 [facility] ([place] Comment on above: Performed By: #### 6 30-4 #### [address] [address] Lymphocytes/100 WBC (Bld) 21.5 % Low 24.0-44.0 [facility] ([place] Comment on above: Performed By: #### 6 30-4 #### [facility] [address] [place] [address] MCH (RBC) [Entitic mass] 28.7 pg Normal 28.0-34.0 [facility] ([place] Comment on above: Performed By: #### 6 30-4 #### [facility] [address] [place] [address] MCHC (RBC) [Mass/Vol] 33.3 g/dL Normal 33.0-37.0 [facility] ([place]) Comment on above: Performed By: #### 6 30-4 #### [address] [address] MCV (RBC) [Entitic vol] 86.0 fL Normal 80.0-100.0 [facility] ([place]) Comment on above: Performed By: #### 6 30-4 #### [address] [address] Monocytes (Bld) [#/Vol] 0.5 10*3/uL Normal 0.20-0.70 [facility] ([place] Comment on above: Performed By: #### 6 30-4 #### [facility] [address] [place] [address] Monocytes/100 WBC (Bld) 7.2 % Normal 3.4-9.0 [facility] ([place]) Comment on above: Performed By: #### 6 30-4 #### [facility] [address] [place] [address] Neutrophils (Bld) [#/Vol] 4.9 10*3/uL Normal 1.83-8.70 [facility] ([place] Comment on above: Performed By: #### 6 30-4 #### [address] [address] Neutrophils/100 WBC (Bld) 67.4 % Normal 40.0-74.0 [facility] ([place] Comment on above: Performed By: #### 6 30-4 #### [facility] [address] [place] [address] Platelet mean volume (Bld) [Entitic vol] 6.6 fL Low 7.4-10.4 [facility] ([place] Comment on above: Performed By: #### 6 30-4 #### [facility] [address] [place] [address] Platelets (Bld) [#/Vol] 155 10*3/uL Normal 150-450 [facility] ([place] Comment on above: Performed By: #### 6 30-4 #### [address] [address] RBC (Bld) [#/Vol] 4.41 10*6/uL Low 4.50-5.50 [facility] ([place] Comment on above: Performed By: #### 6 30-4 #### [address] [address] WBC (Bld) [#/Vol] 7.2 10*3/uL Normal 4.5-11.0 [facility] ([place] Comment on above: Performed By: #### 6 30-4 #### [facility] [address] [place] [address] Glucose Glucometer (BldC) [M ass/Vol]on 06-01-2022 Glucose [Mass/Vol] 161 mg/dL Normal 70-99 [facility] ([place] Comment on above: Performed By: #### 4 1653-7 #### [address] [address] Glucose [Mass/Vol] 206 mg/dL Normal 70-99 [facility] ([place] Comment on above: Performed By: #### 6 30-4 #### [address] [address] Glucose [Mass/Vol] 232 mg/dL Normal 70-99 [facility] ([place] Comment on above: Performed By: #### 6 30-4 #### [facility] [address] [place] [address] Glucose [Mass/Vol] 152 mg/dL Normal 70-99 [facility] ([place] Comment on above: Performed By: #### 4 1653-7 #### [facility] [address] [place] [address] Laboratory - Hematology and Cell countsOrdered By: Naresh Sainz on 06-01-2022 HbA1c (Bld) [Mass fraction] 9.8 % 4.0-6.0 [facility] Lipid Panelon 06-01-2022 Cholesterol [Mass/Vol] 97 mg/dL Low 140-200 [facility] ([place]) Comment on above: Performed By: #### 9 4500-6 #### [facility] [address] [place] [address] Cholesterol in HDL [Mass/Vol] 28 mg/dL Low 29-71 [facility] ([place] Comment on above: Performed By: #### 9 4500-6 #### [facility] [address] [place] [address] Cholesterol in LDL [Mass/Vol] 48 mg/dL Normal <129 [facility] ([place]) Comment on above: Performed By: #### 9 4500-6 #### [facility] [address] [place] [address] Cholesterol in LDL/Cholesterol in HDL [Mass ratio] 1.7 {ratio} Normal [facility] ([place]) Comment on above: Result Comment: MEN WOMEN 1/2 Average Risk 1.00 1.47 Average Risk 3.55 3.22 2X Average Risk 6.25 5.03 3X Average Risk 7.99 6.14 Performed By: #### 9 4500-6 #### [facility] [address] [place] [address] Triglyceride [Mass/Vol] 167 mg/dL Normal 41-189 [facility] ([place]) Comment on above: Performed By: #### 9 4500-6 #### [facility] [address] [place] [address] Magnesium Bld-mCncon 023 Magnesium (Bld) [Mass/Vol] 1.7 mEq/L Normal 1.6-2.6 [facility] ([place]) Comment on above: Performed By: #### 6 30-4 #### [facility] [address] [place] [address] Prothrombin Time on Coumadin on 06-01-2022 INR Coag (PPP) [Relative time] 1.32 {INR} Low 2.00-3.50 [facility] ([place]) Comment on above: Performed By: #### 9 4500-6 #### [facility] [address] [place] [address] Serum or plasma cholesterol in LDL measurement (mass/volume)Ordered By: Naresh Sainz on 06-01-2022 Cholesterol in LDL [Mass/Vol] 48 mg/dL <128 [facility] Serum or plasma cholesterol measurement (mass/volume)Ordered By: Naresh Sainz on 06-01-2022 Cholesterol [Mass/Vol] 97 mg/dL 140-200 [facility] Serum or plasma high density lipoprotein (HDL) cholesterol measurementOrdered By: Naresh Sainz on 06-01-2022 Cholesterol in HDL [Mass/Vol] 28 mg/dL 29-71 [facility] Serum or plasma low density lipoprotein (LDL) cholesterol/high density lipoprotein (HOrdered By: Naresh Sainz on 06-01-2022 Cholesterol in LDL/Cholesterol in HDL [Mass ratio] 1.7 {ratio} [facility] Comment on above: MEN WOMEN1/2 Average Risk 1.00 1.47Average Risk 3.55 3.222X Average Risk 6.25 5.033X Average Risk 7.99 6.14 Serum or plasma thyroid stim ulating hormone (TSH) measurementOrdered By: Naresh Sainz on 06-01-2022 TSH Qn 3.49 uIU/mL 0.34-5.60 [facility] Serum or plasma triglyceride measurement (mass/volume)Ordered By: Naresh Sainz on 06-01-2022 Triglyceride [Mass/Vol] 167 mg/dL 41-189 [facility] TSH SerPl-aCncon 06-01-2022 TSH Qn 3.49 uIU/mL Normal 0.34-5.60 [facility] ([place]) Comment on above: Performed By: #### 9 4500-6 #### [facility] [address] [place] [address] Whole blood estimated averag e glucose determination by estimation from glycated hemoglobin (mass/voluOrdered By: Naresh Sainz on 06-01-2022 Average glucose Estimated from glycated hemoglobin (Bld) [Mass/Vol] 235 mg/dL [facility] ALT (SGPT) ser/plasOrdered B y: Thompson Hayden on 05-31-2022 ALT [Catalytic activity/Vol] 23 U/L 10-63 [facility] Albumin [Mass/volume] in Ser um or PlasmaOrdered By: Thompson Hayden on 05-31-2022 Albumin [Mass/Vol] 3.2 g/dL 3.4-4.8 [facility] Albumin/Globulin [Mass Ratio ] in Serum or PlasmaOrdered By: Thompson Hayden on 05-31-2022 Albumin/Globulin [Mass ratio] 0.8 {ratio} 1.1-2.2 [facility] Alkaline phosphatase [Enzyma tic activity/volume] in Serum or PlasmaOrdered By: Thompson Hayden on 05-31-2022 ALP [Catalytic activity/Vol] 72 U/L 42-121 [facility] Appearance urOrdered By: Jose Hayden on 05-31-2022 Appearance (U) Cloudy [facility] Aspartate aminotransferase [ Enzymatic activity/volume] in Serum or PlasmaOrdered By: Thompson Hayden on 05-31-2022 AST [Catalytic activity/Vol] 22 U/L 10-41 [facility] Automated leukocyte clumps c ount in urine sediment (number/area)Ordered By: Thompson Hayden on 05-31-2022 Leukocyte clumps Auto (Urine sed) [#/Area] Moderate /HPF NONE SEEN [facility] Automated urine sediment bud ding yeast count by microscopy (number/high power field)Ordered By: Thompson Hayden on 05-31-2022 Yeast.budding LM.HPF (Urine sed) [#/Area] Few /HPF NONE SEEN [facility] Bacteria [Presence] in Urine sediment by Light microscopyOrdered By: Thompson Hayden on 05-31-2022 Bacteria LM Ql (Urine sed) 1+ /HPF NONE SEEN [facility] Bilirubin.total [Mass/volume ] in Serum or PlasmaOrdered By: Thompson Hayden on 05-31-2022 Bilirubin [Mass/Vol] 0.8 mg/dL 0.3-1.5 [facility] Blood Cultureon 05-31-2022 Bacteria identified Anaer+Aer cx Nom (Unsp spec) Bacteria Spec Anaerobe+Aerobe Cult NO GROWTH 5 DAYS Normal [facility] ([place]) Comment on above: Performed By: #### 2 1020-3 #### [facility] [address] [place] [address] CBC W/ Auto Diffon 3 Basophils (Bld) [#/Vol] 0.0 10*3/uL Normal 0.00-0.20 [facility] ([place]) Comment on above: Performed By: #### 9 4500-6 #### [address] [address] Basophils/100 WBC (Bld) 0.7 % Normal 0.0-1.5 [facility] ([place]) Comment on above: Performed By: #### 9 4500-6 #### [facility] [address] [place] [address] Eosinophils (Bld) [#/Vol] 0.2 10*3/uL Normal 0.00-0.33 [facility] ([place] Comment on above: Performed By: #### 9 4500-6 #### [address] [address] Eosinophils/100 WBC (Bld) 2.9 % Normal 0.0-3.0 [facility] ([place] Comment on above: Performed By: #### 9 4500-6 #### [facility] [address] [place] [address] Erythrocyte distribution width (RBC) [Ratio] 14.7 % High 10.9-14.3 [facility] ([place] Comment on above: Performed By: #### 9 4500-6 #### [facility] [address] [place] [address] Hematocrit (Bld) [Volume fraction] 37.6 % Low 41.0-50.0 [facility] ([place] Comment on above: Performed By: #### 9 4500-6 #### [facility] [address] [place] [address] Hemoglobin (Bld) [Mass/Vol] 12.6 g/dL Low 13.5-16.5 [facility] ([place] Comment on above: Performed By: #### 9 4500-6 #### [facility] [address] [place] [address] Lymphocytes Auto (Unsp spec) [#/Vol] 1.4 10*3/uL Normal 1.10-4.80 [facility] ([place] Comment on above: Performed By: #### 9 4500-6 #### [facility] [address] [place] [address] Lymphocytes/100 WBC (Bld) 19.9 % Low 24.0-44.0 [facility] ([place] Comment on above: Performed By: #### 9 4500-6 #### [facility] [address] [place] [address] MCH (RBC) [Entitic mass] 28.9 pg Normal 28.0-34.0 [facility] ([place] Comment on above: Performed By: #### 9 4500-6 #### [facility] [address] [place] [address] MCHC (RBC) [Mass/Vol] 33.5 g/dL Normal 33.0-37.0 [facility] ([place]) Comment on above: Performed By: #### 9 4500-6 #### [address] [address] MCV (RBC) [Entitic vol] 86.3 fL Normal 80.0-100.0 [facility] ([place]) Comment on above: Performed By: #### 9 4500-6 #### [address] [address] Monocytes (Bld) [#/Vol] 0.5 10*3/uL Normal 0.20-0.70 [facility] ([place] Comment on above: Performed By: #### 9 4500-6 #### [address] [address] Monocytes/100 WBC (Bld) 7.2 % Normal 3.4-9.0 [facility] ([place] Comment on above: Performed By: #### 9 4500-6 #### [address] [address] Neutrophils (Bld) [#/Vol] 4.9 10*3/uL Normal 1.83-8.70 [facility] ([place] Comment on above: Performed By: #### 9 4500-6 #### [address] [address] Neutrophils/100 WBC (Bld) 69.3 % Normal 40.0-74.0 [facility] ([place] Comment on above: Performed By: #### 9 4500-6 #### [address] [address] Platelet mean volume (Bld) [Entitic vol] 6.6 fL Low 7.4-10.4 [facility] ([place] Comment on above: Performed By: #### 9 4500-6 #### [address] [address] Platelets (Bld) [#/Vol] 147 10*3/uL Low 150-450 [facility] ([place] Comment on above: Performed By: #### 9 4500-6 #### [facility] [address] [place] [address] RBC (Bld) [#/Vol] 4.36 10*6/uL Low 4.50-5.50 [facility] ([place] Comment on above: Performed By: #### 9 4500-6 #### [facility] [address] [place] [address] WBC (Bld) [#/Vol] 7.1 10*3/uL Normal 4.5-11.0 [facility] ([place] Comment on above: Performed By: #### 9 4500-6 #### [facility] [address] [place] [address] CO2 (BldV) [Moles/Vol]Ordere d By: Thompson Hayden on 05-31-2022 CO2 [Moles/Vol] 28.6 mmol/L [facility] CT chest wo conon 05-31-2022 CT chest wo con [facility] [address] [place] [address] CT Scan Report Signed Patient: CHARLI PORRAS R#: [id number] : 1950 Acct:[id number] Age/Sex: 72 / M Admit Date: 05/31/22 Loc: 2T 2014- Attending Dr: Naresh Sainz DO Ordering Physician: Naresh Sainz DO Date of Service: 05/31/22 Procedure(s): CT chest wo con Accession Number(s): [id number] cc: Naresh Sainz DO INDICATION: Shortness of [...] 09 Signed By: Radu Carvalho MD 05/31/222125 Regional Director Of Admissions: Normal [facility] ([place]) Comprehensive metabolic 2000 panelon 05-31-2022 Albumin [Mass/Vol] 3.2 g/dL Low 3.4-4.8 [facility]) Comment on above: Performed By: #### 4 1653-7 #### [facility] [address] [place] [address] Albumin/Globulin [Mass ratio] 0.8 {ratio} Low 1.1-2.2 [facility]) Comment on above: Performed By: #### 4 1653-7 #### [facility] [address] [place] [address] ALP [Catalytic activity/Vol] 72 U/L Normal 42-121 [facility] ([place] Comment on above: Performed By: #### 4 1653-7 #### [facility] [address] [place] [address] ALT [Catalytic activity/Vol] 23 U/L Normal 10-63 [facility]) Comment on above: Performed By: #### 4 1653-7 #### [facility] [address] [place] [address] Anion gap [Moles/Vol] 10.0 mmol/L Normal 3-11 [facility]) Comment on above: Performed By: #### 4 1653-7 #### [facility] [address] [place] [address] AST [Catalytic activity/Vol] 22 U/L Normal 10-41 [facility] ([place] Comment on above: Performed By: #### 4 1653-7 #### [facility] [address] [place] [address] Bilirubin [Mass/Vol] 0.8 mg/dL Normal 0.3-1.5 [facility] ([place]) Comment on above: Performed By: #### 4 1653-7 #### [facility] [address] [place] [address] Calcium [Mass/Vol] 8.8 mg/dL Normal 8.5-10.5 [facility] ([place] Comment on above: Performed By: #### 4 1653-7 #### [address] [address] Chloride [Moles/Vol] 99 mmol/L Normal 98-107 [facility] ([place]) Comment on above: Performed By: #### 4 1653-7 #### [address] [address] CO2 [Moles/Vol] 25 mmol/L Normal 21-31 [facility] ([place] Comment on above: Performed By: #### 4 1653-7 #### [facility] [address] [place] [address] Creatinine [Moles/Vol] 1.2 mg/dL Normal 0.6-1.3 [facility] ([place]) Comment on above: Performed By: #### 4 1653-7 #### [address] [address] Creatinine and Glomerular filtration rate.predicted panel (S/P/Bld) 72 mL/min Normal >60 [facility] ([place] Comment on above: Performed By: #### 4 1653-7 #### [facility] [address] [place] [address] GFR/1.73 sq M.predicted among non-blacks MDRD (S/P/Bld) [Vol rate/Area] 59 mL/min/{1.73_m2} Normal >60 [facility] ([place] Comment on above: Performed By: #### 4 1653-7 #### [facility] [address] [place] [address] Globulin (S) [Mass/Vol] 3.8 g/dL Normal 1.9-3.9 [facility] ([place]) Comment on above: Performed By: #### 4 1653-7 #### [facility] [address] [place] [address] Glucose [Mass/Vol] 195 mg/dL High 70-99 [facility] ([place] Comment on above: Performed By: #### 4 1653-7 #### [facility] [address] [place] [address] Potassium [Moles/Vol] 3.6 mmol/L Normal 3.6-5.0 [facility] ([place]) Comment on above: Performed By: #### 4 1653-7 #### [facility] [address] [place] [address] Protein [Mass/Vol] 7.0 g/dL Normal 5.9-7.8 [facility] ([place] Comment on above: Performed By: #### 4 1653-7 #### [facility] [address] [place] [address] Sodium [Moles/Vol] 134 mmol/L Low 135-145 [facility] ([place] Comment on above: Performed By: #### 4 1653-7 #### [facility] [address] [place] [address] Urea nitrogen [Mass/Vol] 17 mg/dL Normal 6-20 [facility] ([place] Comment on above: Performed By: #### 4 1653-7 #### [facility] [address] [place] [address] Detection in urine of either or both bilirubin and urobilinogenOrdered By: Thompson Hayden on 05-31-2022 Bilirubin+Urobilinogen Ql (U) Negative NEGATIVE [facility] Gas panel (BldV)on CO2 (BldV) [Partial pressure] 48 mm[Hg] Normal 39-55 [facility] ([place] Comment on above: Performed By: #### C D #### [facility] [address] [place] [address] CO2 [Moles/Vol] 28.6 mmol/L Normal 23-29 [facility] ([place] Comment on above: Performed By: #### C D #### [facility] [address] [place] [address] HCO3 (Bld) [Moles/Vol] 27.1 mmol/L Normal 22-28 [facility] ([place]) Comment on above: Performed By: #### C D #### [facility] [address] [place] [address] Oxygen (BldV) [Partial pressure] 62.0 mm[Hg] High 30-50 [facility] ([place] Comment on above: Performed By: #### C D #### [facility] [address] [place] [address] pH (BldV) 7.36 [pH] Normal 7.31-7.42 [facility] ([place] Comment on above: Performed By: #### C D #### [facility] [address] [place] [address] VBG Oxygen Saturation 90 % High 50-85 [facility] ([place]) Comment on above: Performed By: #### C D #### [facility] [address] [place] [address] Glucose Glucometer (BldC) [M ass/Vol]on 05-31-2022 Glucose [Mass/Vol] 264 mg/dL Normal 70-99 [facility] ([place] Comment on above: Performed By: #### 6 30-4 #### [facility] [address] [place] [address] Glucose [Mass/volume] in Uri ne by Automated test stripOrdered By: Thompson Hayden on 05-31-2022 Glucose Auto test strip (U) [Mass/Vol] 1000 mg/dL NEGATIVE [facility] HCO3 (BldV) [Moles/Vol]Order ed By: Thompson Hayden on 05-31-2022 HCO3 (Bld) [Moles/Vol] 27.1 mmol/L [facility] Influenza A,B [facility] by PCRon 05-31-2022 FLUBV Ag Ql (Unsp spec) Negative Normal Negative [facility] ([place]) Comment on above: Performed By: #### 4 1653-7 #### [facility] [address] [place] [address] Rapid Flu A Negative Normal Negative [facility] ([place] Comment on above: Performed By: #### 4 1653-7 #### [facility] [address] [place] [address] Lactate (Bld) [Moles/Vol]on 05-31-2022 Lactate [Moles/Vol] 1.7 mmol/L Normal 0.5-2.0 [facility] ([place] Comment on above: Performed By: #### C D #### [facility] [address] [place] [address] Lactate (Bld) [Moles/Vol]Ord ered By: Thompson Hayden on 05-31-2022 Lactate [Moles/Vol] 1.7 mmol/L 0.5-2.0 [facility] Leukocytes detection in urin e sediment by light microscopyOrdered By: Thompson Hayden on 05-31-2022 WBC LM Ql (Urine sed) >100 /HPF NONE SEEN [facility] Magnesium Bld-mCncon 023 Magnesium (Bld) [Mass/Vol] 1.6 mEq/L Normal 1.6-2.6 [facility] ([place] Comment on above: Performed By: #### 4 1653-7 #### [facility] [address] [place] [address] Microscopic examination of u rineOrdered By: Thompson Hayden on 05-31-2022 Microscopic observation LM Nom (Urine sed) Yes [facility] Microscopic observation LM N om (Urine sed)on 05-31-2022 Bacteria LM Ql (Urine sed) 1+ /HPF Normal NONE SEEN [facility] ([place]) Comment on above: Order Comment: Urine Collect Clean Catch Performed By: #### 4 1653-7 #### [facility] [address] [place] [address] Yeast.budding LM.HPF (Urine sed) [#/Area] FEW Normal NONE SEEN [facility] ([place]) Comment on above: Order Comment: Urine Collect Clean Catch Performed By: #### 4 1653-7 #### [facility] [address] [place] [address] Leukocyte clumps Auto (Urine sed) [#/Area] MODERATE Normal NONE SEEN [facility] ([place]) Comment on above: Order Comment: Urine Collect Clean Catch Performed By: #### 4 1653-7 #### [facility] [address] [place] [address] RBC Ql (U) 20-50 Normal NONE SEEN [facility] ([place]) Comment on above: Order Comment: Urine Collect Clean Catch Performed By: #### 4 1653-7 #### [facility] [address] [place] [address] Transitional cells LM Ql (Urine sed) OCCASIONAL Normal NONE SEEN [facility] ([place] Comment on above: Order Comment: Urine Collect Clean Catch Performed By: #### 4 1653-7 #### [facility] [address] [place] [address] WBC LM Ql (Urine sed) >100 Normal NONE SEEN [facility] ([place]) Comment on above: Order Comment: Urine Collect Clean Catch Performed By: #### 4 1653-7 #### [facility] [address] [place] [address] Natriuretic peptide B [Mass/ Vol]on 05-31-2022 Natriuretic peptide B (Bld) [Mass/Vol] 15 pg/mL Normal 0-100 [facility] ([place] Comment on above: Performed By: #### 4 1653-7 #### [facility] [address] [place] [address] Natriuretic peptide B [Mass/ Vol]Ordered By: Thompson Hayden on 05-31-2022 Natriuretic peptide B (Bld) [Mass/Vol] 15 pg/mL 0-100 [facility] No Panel InformationOrdered By: Thompson Hayden on 05-31-2022 Urine Culture Reflexed Reflexed to culture [facility] Comment on above: A Urine Culture has been added to this specimen. Influenza Type A (Rapid) Negative Negative [facility] Procalcitonin < 0.05 ng/mL 0.10-0.50 [facility] Comment on above: *PROCALCITONIN INTER PRETATION*Less than 0.5: Low risk for systemic infection.0.5 to 2.0: Moderate risk for systemic infection.Greater than 2.0: High risk for systemic infection.10.0 or greater: Likelihood of severe sepsis or septic shock. Venous Blood Oxygen Saturation 90 % 50-85 [facility] Procalcitoninon 05-31-2022 Procalcitonin < 0.05 Normal 0.10-0.50 [facility] ([place]) Comment on above: Result Comment: *PRO CALCITONIN INTERPRETATION* Less than 0.5: Low risk for systemic infection. 0.5 to 2.0: Moderate risk for systemic infection. Greater than 2.0: High risk for systemic infection. 10.0 or greater: Likelihood of severe sepsis or septic shock. Performed By: #### 4 1653-7 #### [facility] [address] [place] [address] Prothrombin Time on Coumadin on 05-31-2022 INR Coag (PPP) [Relative time] 1.72 {INR} Low 2.00-3.50 [facility] ([place] Comment on above: Performed By: #### 6 30-4 #### [facility] [address] [place] [address] RBC LM Ql (Urine sed)Ordered By: Thompson Hayden on 05-31-2022 RBC Ql (U) 20-50 /HPF NONE SEEN [facility] Rapid influenza B antigen de tectionOrdered By: Thompson Hayden on 05-31-2022 FLUBV Ag Ql (Unsp spec) Negative Negative [facility] Respiratory specimen COVID-1 9 virus RNA detectionOrdered By: Thompson Hayden on 05-31-2022 SARS-CoV-2 (COVID-19) RNA LIV+probe Ql (Resp) [facility] SARS-CoV2 PCRon 05-31-2022 SARS-CoV-2 (COVID-19) RNA [...] authorization is terminated or revoked sooner. Normal [facility] ([place]) Comment on above: Performed By: #### 9 4500-6 #### [facility] [address] [place], [place] [id number] Serum globulin measurement ( mass/volume)Ordered By: Thompson Jackelyn on 05-31-2022 Globulin (S) [Mass/Vol] 3.8 g/dL 1.9-3.9 [facility] Specific gravity of UrineOrd ered By: Thompson Jackelyn on 05-31-2022 Specific gravity (U) [Rel density] 1.020 1.001-1.035 [facility] Total protein bloodOrdered B y: Thompson Hayden on 05-31-2022 Protein [Mass/Vol] 7.0 g/dL 5.9-7.8 [facility] Transitional cells detection in urine sediment by light microscopyOrdered By: Thompson Hayden on 05-31-2022 Transitional cells LM Ql (Urine sed) Occasional /HPF NONE SEEN [facility] Troponin I SerPl-mCncon 05-05 Troponin I.cardiac [Mass/Vol] 0.04 ng/mL High <0.03 [facility] ([place] Comment on above: Performed By: #### 4 1653-7 #### [facility] [address] [place], [place] [address] Troponin I ser/plasOrdered B y: Thompson Hayden on 05-31-2022 Troponin I.cardiac [Mass/Vol] 0.04 ng/mL <0.03 [facility] Urinalysison 05-31-2022 Bilirubin+Urobilinogen Ql (U) Negative Normal NEGATIVE [facility] ([place] Comment on above: Order Comment: Urine Collect Clean Catch Performed By: #### 4 1653-7 #### [facility] [address] [place], [place] [id number] (744) Ketones Ql (U) TRACE Abnormal NEGATIVE [facility] ([place]) Comment on above: Order Comment: Urine Collect Clean Catch Performed By: #### 4 1653-7 #### [facility] [address] [place], [place] [phone] (702) Nitrate Ql (U) Negative Normal NEGATIVE [facility] ([place] Comment on above: Order Comment: Urine Collect Clean Catch Performed By: #### 4 1653-7 #### [facility] [address] [place] [address] RBC Ql (U) SMALL Abnormal NEGATIVE [facility] ([place] Comment on above: Order Comment: Urine Collect Clean Catch Performed By: #### 4 1653-7 #### [facility] [address] [place] [address] Urobilinogen (U) [Mass/Vol] Negative Normal NEGATIVE [facility] ([place] Comment on above: Order Comment: Urine Collect Clean Catch Performed By: #### 4 1653-7 #### [facility] [address] [place] [address] WBC Visual Ql (U) MODERATE Abnormal NEGATIVE [facility] ([place] Comment on above: Order Comment: Urine Collect Clean Catch Performed By: #### 4 1653-7 #### [facility] [address] [place] [address] Appearance (U) CLOUDY Normal [facility] ([place] Comment on above: Order Comment: Urine Collect Clean Catch Performed By: #### 4 1653-7 #### [facility] [address] [place] [address] Color (U) YELLOW Normal [facility] ([place] Comment on above: Order Comment: Urine Collect Clean Catch Performed By: #### 4 1653-7 #### [facility] [address] [place] [address] Glucose Auto test strip (U) [Mass/Vol] 1000 mg/dL Abnormal NEGATIVE [facility] ([place] Comment on above: Order Comment: Urine Collect Clean Catch Performed By: #### 4 1653-7 #### [address] [address] pH (U) 6.0 [pH] Normal 4.6-8.0 [facility] ([place] Comment on above: Order Comment: Urine Collect Clean Catch Performed By: #### 4 1653-7 #### [address] [place] [address] Protein Auto test strip Ql (U) 30 mg/dL Abnormal NEGATIVE [facility] ([place]) Comment on above: Order Comment: Urine Collect Clean Catch Performed By: #### 4 1653-7 #### [facility] [address] [place] [address] Specific gravity (U) [Rel density] 1.020 Normal 1.001-1.035 [facility] ([place]) Comment on above: Order Comment: Urine Collect Clean Catch Performed By: #### 4 1653-7 #### [facility] [address] [place] [address] Urine blood detectionOrdered By: Thompson Hayden on 05-31-2022 RBC Ql (U) Small NEGATIVE [facility] Urine colorOrdered By: Owen Hayden on 05-31-2022 Color (U) Yellow [facility] Urine ketones detectionOrder ed By: Thompson Hayden on 05-31-2022 Ketones Ql (U) Trace mg/dL NEGATIVE [facility] Urine leukocytes detection b y microscopyOrdered By: Thompson Hayden on 05-31-2022 WBC Visual Ql (U) Moderate NEGATIVE [facility] Urine nitrate detectionOrder ed By: Thompson Hayden on 05-31-2022 Nitrate Ql (U) Negative NEGATIVE [facility] Urine pHOrdered By: Thompson springer on 05-31-2022 pH (U) 6.0 [pH] 4.6-8.0 [facility] Urine protein detection by a utomated test stripOrdered By: Thompson Hayden on 05-31-2022 Protein Auto test strip Ql (U) 30 mg/dL NEGATIVE [facility] Urobilinogen Test strip (U) [Mass/Vol]Ordered By: Thompson Hayden on 05-31-2022 Urobilinogen (U) [Mass/Vol] Negative NEGATIVE [facility] Venous blood pH measurementO rdered By: Thompson Hayden on 05-31-2022 pH (BldV) 7.36 [pH] 7.31-7.42 [facility] Venous blood partial pressur e of carbon dioxide measurementOrdered By: Thompson Hayden on 05-31-2022 CO2 (BldV) [Partial pressure] 48 mm[Hg] 39-55 [facility] Venous blood partial pressur e of oxygen measurementOrdered By: Thompson Hayden on 05-31-2022 Oxygen (BldV) [Partial pressure] 62.0 mm[Hg] 30-50 [facility] XR chest 1V portableon 05-31 XR chest 1V portable [facility] [address] [place], [place] [address] XRay Report Signed Patient: CHARLI PORRAS R#: [id number] : 1950 Acct:[id number] Age/Sex: 72 / M Admit Date: 05/31/22 Loc: ER Attending Dr: Ordering Physician: Thompson Hayden MD Date of Service: 05/31/22 Procedure(s): XR chest 1V portable Accession Number(s): [id number] cc: Thompson Hayden MD INDICATION: Shortness of [...] Signed By: Garcia Reeves MD 05/31/22 1510 Regional Director Of Admissions: Normal [facility] ([place]) Aerobic and anaerobic cultur e blood cultureOrdered By: Thompson Hayden on 04-25-2022 Bacteria identified Anaer+Aer cx Nom (Unsp spec) NO GROWTH 5 DAYS [facility] Gabapentin SerPl-sCncon 04-04 Gabapentin [Moles/Vol] 9.4 ug/mL Normal 4.0-16.0 [facility] ([place]) Comment on above: Result Comment: Dete ction Limit = 1.0 Performed at: [address], [place] [id number] Stacker Operator: Martha Gaming MD, Phone: [phone] Performed By: #### 6 30-4 #### [facility] [address] [place], [place] [address] Reflex Urn Culton 04-24-2022 Bacteria identified Cx Nom (U) ORGANISM ID: 1.1 - Presumptive Callie glabrata [place] Count 50,000-100,000 CFU/ml Normal [facility] ([place]) Comment on above: Performed By: #### 6 30-4 #### [facility] [address] [place], [place] [id number] Urine culture routineOrdered By: Judy Pompura on 04-24-2022 Bacteria identified Cx Nom (U) Presumptive Callie glabrata [facility] ALT (SGPT) ser/plasOrdered B y: Judy Pompura on 04-23-2022 ALT [Catalytic activity/Vol] 39 U/L 10-63 [facility] Absolute lymphocyte countOrd ered By: Judy Pompura on 04-23-2022 Lymphocytes Auto (Unsp spec) [#/Vol] 1.3 10*3/uL 1.10-4.80 [facility] Albumin [Mass/volume] in Ser um or PlasmaOrdered By: Judy Pompura on 04-23-2022 Albumin [Mass/Vol] 3.1 g/dL 3.4-4.8 [facility] Albumin/Globulin [Mass Ratio ] in Serum or PlasmaOrdered By: Judy Pompura on 04-23-2022 Albumin/Globulin [Mass ratio] 0.9 {ratio} 1.1-2.2 [facility] Alkaline phosphatase [Enzyma tic activity/volume] in Serum or PlasmaOrdered By: Judy Pompura on 04-23-2022 ALP [Catalytic activity/Vol] 80 U/L 42-121 [facility] Aspartate aminotransferase [ Enzymatic activity/volume] in Serum or PlasmaOrdered By: Judy Pompura on 04-23-2022 AST [Catalytic activity/Vol] 42 U/L 10-41 [facility] Basophils Auto (Bld) [#/Vol] Ordered By: Judy Pompura on 04-23-2022 Basophils (Bld) [#/Vol] 0.1 10*3/uL 0.00-0.20 [facility] Basophils/100 WBC Auto (Bld) Ordered By: Judy Pompura on 04-23-2022 Basophils/100 WBC (Bld) 1.0 % 0.0-1.5 [facility] Bilirubin.total [Mass/volume ] in Serum or PlasmaOrdered By: Judy Pompura on 04-23-2022 Bilirubin [Mass/Vol] 1.1 mg/dL 0.3-1.5 [facility] CBC W/ Auto Diffon Basophils (Bld) [#/Vol] 0.1 10*3/uL Normal 0.00-0.20 [facility] ([place]) Comment on above: Performed By: #### 9 4500-6 #### [facility] [address] [place] [address] Basophils/100 WBC (Bld) 1.0 % Normal 0.0-1.5 [facility] ([place]) Comment on above: Performed By: #### 9 4500-6 #### [facility] [address] [place] [address] Eosinophils (Bld) [#/Vol] 0.3 10*3/uL Normal 0.00-0.33 [facility] ([place] Comment on above: Performed By: #### 9 4500-6 #### [facility] [address] [place] [address] Eosinophils/100 WBC (Bld) 4.7 % High 0.0-3.0 [facility] ([place] Comment on above: Performed By: #### 9 4500-6 #### [facility] [address] [place] [address] Erythrocyte distribution width (RBC) [Ratio] 13.5 % Normal 10.9-14.3 [facility] ([place] Comment on above: Performed By: #### 9 4500-6 #### [facility] [address] [place] [address] Hematocrit (Bld) [Volume fraction] 39.7 % Low 41.0-50.0 [facility] ([place] Comment on above: Performed By: #### 9 4500-6 #### [facility] [address] [place] [address] Hemoglobin (Bld) [Mass/Vol] 13.3 g/dL Low 13.5-16.5 [facility] ([place] Comment on above: Performed By: #### 9 4500-6 #### [facility] [address] [place] [address] Lymphocytes Auto (Unsp spec) [#/Vol] 1.3 10*3/uL Normal 1.10-4.80 [facility] ([place] Comment on above: Performed By: #### 9 4500-6 #### [facility] [address] [place] [address] Lymphocytes/100 WBC (Bld) 18.2 % Low 24.0-44.0 [facility] ([place] Comment on above: Performed By: #### 9 4500-6 #### [facility] [address] [place] [address] MCH (RBC) [Entitic mass] 29.4 pg Normal 28.0-34.0 [facility] ([place] Comment on above: Performed By: #### 9 4500-6 #### [facility] [address] [place] [address] MCHC (RBC) [Mass/Vol] 33.5 g/dL Normal 33.0-37.0 [facility] ([place]) Comment on above: Performed By: #### 9 4500-6 #### [address] [address] MCV (RBC) [Entitic vol] 88.0 fL Normal 80.0-100.0 [facility] ([place] Comment on above: Performed By: #### 9 4500-6 #### [address] [address] Monocytes (Bld) [#/Vol] 0.7 10*3/uL Normal 0.20-0.70 [facility] ([place] Comment on above: Performed By: #### 9 4500-6 #### [facility] [address] [place] [address] Monocytes/100 WBC (Bld) 10.1 % High 3.4-9.0 [facility] ([place] Comment on above: Performed By: #### 9 4500-6 #### [address] [address] Neutrophils (Bld) [#/Vol] 4.6 10*3/uL Normal 1.83-8.70 [facility] ([place] Comment on above: Performed By: #### 9 4500-6 #### [address] [address] Neutrophils/100 WBC (Bld) 66.0 % Normal 40.0-74.0 [facility] ([place] Comment on above: Performed By: #### 9 4500-6 #### [facility] [address] [place] [address] Platelet mean volume (Bld) [Entitic vol] 7.6 fL Normal 7.4-10.4 [facility] ([place] Comment on above: Performed By: #### 9 4500-6 #### [address] [address] Platelets (Bld) [#/Vol] 163 10*3/uL Normal 150-450 [facility] ([place] Comment on above: Performed By: #### 9 4500-6 #### [address] [address] RBC (Bld) [#/Vol] 4.51 10*6/uL Normal 4.50-5.50 [facility] ([place] Comment on above: Performed By: #### 9 4500-6 #### [facility] [address] [place] [address] WBC (Bld) [#/Vol] 7.0 10*3/uL Normal 4.5-11.0 [facility] ([place] Comment on above: Performed By: #### 9 4500-6 #### [facility] [address] [place] [address] Carbon dioxide, total [Moles /volume] in Serum or PlasmaOrdered By: Judy Pompura on 04-23-2022 CO2 [Moles/Vol] 23 mmol/L - [facility] Chloride [Moles/volume] in S maricel or PlasmaOrdered By: Judy Pompura on 04-23-2022 Chloride [Moles/Vol] 102 mmol/L 98-107 [facility] Comprehensive metabolic 2000 panelon 04-23-2022 Albumin [Mass/Vol] 3.1 g/dL Low 3.4-4.8 [facility] ([place] Comment on above: Performed By: #### 3 2693-4 #### [facility] [address] [place] [address] Albumin/Globulin [Mass ratio] 0.9 {ratio} Low 1.1-2.2 [facility] ([place] Comment on above: Performed By: #### 3 2693-4 #### [facility] [address] [place] [address] ALP [Catalytic activity/Vol] 80 U/L Normal 42-121 [facility] ([place] Comment on above: Performed By: #### 3 2693-4 #### [facility] [address] [place] [address] ALT [Catalytic activity/Vol] 39 U/L Normal 10-63 [facility] ([place] Comment on above: Performed By: #### 3 2693-4 #### [facility] [address] [place] [address] Anion gap [Moles/Vol] 10.0 mmol/L Normal 3-11 [facility] ([place]) Comment on above: Performed By: #### 3 2693-4 #### [facility] [address] [place] [address] AST [Catalytic activity/Vol] 42 U/L High 10-41 [facility] ([place] Comment on above: Performed By: #### 3 2693-4 #### [facility] [address] [place] [address] Bilirubin [Mass/Vol] 1.1 mg/dL Normal 0.3-1.5 [facility] ([place]) Comment on above: Performed By: #### 3 2693-4 #### [facility] [address] [place] [address] Calcium [Mass/Vol] 8.5 mg/dL Normal 8.5-10.5 [facility] ([place] Comment on above: Performed By: #### 3 2693-4 #### [facility] [address] [place] [address] Chloride [Moles/Vol] 102 mmol/L Normal 98-107 [facility] ([place]) Comment on above: Performed By: #### 3 2693-4 #### [facility] [address] [place] [address] CO2 [Moles/Vol] 23 mmol/L Normal 21-31 [facility] ([place] Comment on above: Performed By: #### 3 2693-4 #### [facility] [address] [place] [address] Creatinine [Moles/Vol] 1.1 mg/dL Normal 0.6-1.3 [facility] ([place]) Comment on above: Performed By: #### 3 2693-4 #### [facility] [address] [place] [address] Creatinine and Glomerular filtration rate.predicted panel (S/P/Bld) 80 mL/min Normal >60 [facility] ([place] Comment on above: Performed By: #### 3 2693-4 #### [facility] [address] [place] [address] GFR/1.73 sq M.predicted among non-blacks MDRD (S/P/Bld) [Vol rate/Area] 66 mL/min/{1.73_m2} Normal >60 [facility] ([place] Comment on above: Performed By: #### 3 2693-4 #### [facility] [address] [place] [address] Globulin (S) [Mass/Vol] 3.5 g/dL Normal 1.9-3.9 [facility] ([place]) Comment on above: Performed By: #### 3 2693-4 #### [address] [address] Glucose [Mass/Vol] 244 mg/dL High 70-99 [facility] ([place] Comment on above: Performed By: #### 3 2693-4 #### [facility] [address] [place] [address] Potassium [Moles/Vol] 3.8 mmol/L Normal 3.6-5.0 [facility] ([place]) Comment on above: Performed By: #### 3 2693-4 #### [facility] [address] [place] [address] Protein [Mass/Vol] 6.6 g/dL Normal 5.9-7.8 [facility] ([place] Comment on above: Performed By: #### 3 2693-4 #### [facility] [address] [place] [address] Sodium [Moles/Vol] 135 mmol/L Normal 135-145 [facility] ([place] Comment on above: Performed By: #### 3 2693-4 #### [facility] [address] [place] [address] Urea nitrogen [Mass/Vol] 20 mg/dL Normal 6-20 [facility] ([place] Comment on above: Performed By: #### 3 2693-4 #### [facility] [address] [place] [address] Creatinine and Glomerular fi ltration rate.predicted panel (S/P/Bld)Ordered By: Judy Pompura on 04-23-2022 GFR/1.73 sq M.predicted MDRD (S/P/Bld) [Vol rate/Area] 80 mL/min/{1.73_m2} >60 [facility] Eosinophils Auto (Bld) [#/Vo l]Ordered By: Judy Pompura on 04-23-2022 Eosinophils (Bld) [#/Vol] 0.3 10*3/uL 0.00-0.33 [facility] Eosinophils/100 WBC Auto (Bl d)Ordered By: Judy Pompura on 04-23-2022 Eosinophils/100 WBC (Bld) 4.7 % 0.0-3.0 [facility] Erythrocyte distribution wid th Auto (RBC) [Ratio]Ordered By: Judy Pompura on 04-23-2022 Erythrocyte distribution width (RBC) [Ratio] 13.5 % 10.9-14.3 [facility] Estimated glomerular filtrat ion rate (GFR) non- AmericanOrdered By: Judy Pompura on 04-23-2022 GFR/1.73 sq M.predicted among non-blacks MDRD (S/P/Bld) [Vol rate/Area] 66 mL/min/{1.73_m2} >60 [facility] Glucose Glucometer (BldC) [M ass/Vol]on 04-23-2022 Glucose [Mass/Vol] 214 mg/dL Normal 70-99 [facility] ([place]) Comment on above: Performed By: #### 9 4500-6 #### [facility] [address] [place], [place] [phone] (008) Glucose [Mass/Vol] 360 mg/dL Normal 70-99 [facility] ([place]) Comment on above: Performed By: #### 4 1653-7 #### [facility] [address] [place] [address] Glucose Glucometer (BldC) [M ass/Vol]Ordered By: Verito Devi on 04-23-2022 Glucose [Mass/Vol] 214 mg/dL 70-99 [facility] Hematocrit Auto (Bld) [Volum e fraction]Ordered By: Judy Pompmayra on 04-23-2022 Hematocrit (Bld) [Volume fraction] 39.7 % 41.0-50.0 [facility] Hemoglobin A1con 04-23-2022 Average glucose Estimated from glycated hemoglobin (Bld) [Mass/Vol] 255 mg/dL Normal [facility] ([place]) Comment on above: Performed By: #### 2 1020-3 #### [facility] [address] [place] [address] HbA1c (Bld) [Mass fraction] 10.5 % High 4.0-6.0 [facility] ([place]) Comment on above: Performed By: #### 2 1020-3 #### [facility] [address] [place] [address] Hemoglobin [Mass/volume] in BloodOrdered By: Judy Pompura on 04-23-2022 Hemoglobin (Bld) [Mass/Vol] 13.3 g/dL 13.5-16.5 [facility] Lymphocytes/100 WBC Auto (Bl d)Ordered By: Judy Pompura on 04-23-2022 Lymphocytes/100 WBC (Bld) 18.2 % 24.0-44.0 [facility] MCH Auto (RBC) [Entitic mass ]Ordered By: Judy Pompura on 04-23-2022 MCH (RBC) [Entitic mass] 29.4 pg 28.0-34.0 [facility] MCHC Auto (RBC) [Mass/Vol]Or dered By: Judy Pompura on 04-23-2022 MCHC (RBC) [Mass/Vol] 33.5 g/dL 33.0-37.0 [facility] MCV (mean corpuscular volume ) determinationOrdered By: Judy Boo on 04-23-2022 MCV (RBC) [Entitic vol] 88.0 fL 80.0-100.0 [facility] Monocytes Auto (Bld) [#/Vol] Ordered By: Judy Pompura on 04-23-2022 Monocytes (Bld) [#/Vol] 0.7 10*3/uL 0.20-0.70 [facility] Monocytes/100 WBC Auto (Bld) Ordered By: Judy Pompura on 04-23-2022 Monocytes/100 WBC (Bld) 10.1 % 3.4-9.0 [facility] Neutrophils Auto (Bld) [#/Vo l]Ordered By: Judy Pompura on 04-23-2022 Neutrophils (Bld) [#/Vol] 4.6 10*3/uL 1.83-8.70 [facility] Neutrophils/100 WBC Auto (Bl d)Ordered By: Judy Pompura on 04-23-2022 Neutrophils/100 WBC (Bld) 66.0 % 40.0-74.0 [facility] No Panel InformationOrdered By: Judy Boo on 04-23-2022 Anticoagulation Therapy See comment [facility] Comment on above: Suggested Therapy Ra nge: 2.0 - 3.5 Platelet mean volume Auto (B ld) [Entitic vol]Ordered By: Judy Rexura on 04-23-2022 Platelet mean volume (Bld) [Entitic vol] 7.6 fL 7.4-10.4 [facility] Platelet poor plasma interna tional normalized ratio (INR) by coagulation assay (relatOrdered By: Judy Ema on 04-23-2022 INR Coag (PPP) [Relative time] 2.25 {INR} 2.00-3.50 [facility] Platelets Auto (Bld) [#/Vol] Ordered By: Judy Kaushikpura on 04-23-2022 Platelets (Bld) [#/Vol] 163 10*3/uL 150-450 [facility] Potassium [Moles/volume] in Serum or PlasmaOrdered By: Judy Boo on 04-23-2022 Potassium [Moles/Vol] 3.8 mmol/L 3.6-5.0 [facility] Prothrombin Time on Coumadin on 04-23-2022 INR Coag (PPP) [Relative time] 2.25 {INR} Normal 2.00-3.50 [facility] ([place]) Comment on above: Performed By: #### 6 30-4 #### [facility] [address] [place] [address] RBC Auto (Bld) [#/Vol]Ordere d By: Judy Boo on 04-23-2022 RBC (Bld) [#/Vol] 4.51 10*6/uL 4.50-5.50 [facility] Serum globulin measurement ( mass/volume)Ordered By: Judy Boo on 04-23-2022 Globulin (S) [Mass/Vol] 3.5 g/dL 1.9-3.9 [facility] Serum glucose measurement (m ass/volume)Ordered By: Judy Boo on 04-23-2022 Glucose [Mass/Vol] 244 mg/dL 70-99 [facility] Serum or plasma anion gap de termination (moles/volume)Ordered By: Judy Boo on 04-23-2022 Anion gap [Moles/Vol] 10.0 mmol/L 3-11 [facility] Serum or plasma calcium maricel urement (mass/volume)Ordered By: Judy Boo on 04-23-2022 Calcium [Mass/Vol] 8.5 mg/dL 8.5-10.5 [facility] Serum or plasma creatinine m easurement (moles/volume)Ordered By: Judy Ema on 04-23-2022 Creatinine [Moles/Vol] 1.1 mg/dL 0.6-1.3 [facility] Serum or plasma sodium measu rement (moles/volume)Ordered By: Judy Boo on 04-23-2022 Sodium [Moles/Vol] 135 mmol/L 135-145 [facility] Serum or plasma urea nitroge n measurement (mass/volume)Ordered By: Judy Kaushikpura on 04-23-2022 Urea nitrogen [Mass/Vol] 20 mg/dL 10-21 [facility] Total protein bloodOrdered B y: Judy Kaushikpura on 04-23-2022 Protein [Mass/Vol] 6.6 g/dL 5.9-7.8 [facility] WBC Auto (Bld) [#/Vol]Ordere d By: Judy Pompura on 04-23-2022 WBC (Bld) [#/Vol] 7.0 10*3/uL 4.5-11.0 [facility] Ammonia Spec-mCncon 04-22-20 Ammonia (Unsp spec) [Mass/Vol] 16 umol/L Normal [facility] ([place]) Comment on above: Performed By: #### 6 30-4 #### [facility] [address] [place], [place] [id number] (376) Ammonia measurement (mass/vo lume)Ordered By: Judy Pompura on 04-22-2022 Ammonia (Unsp spec) [Mass/Vol] 16 umol/L [facility] Appearance urOrdered By: Pat ricia Kaushikpura on 04-22-2022 Appearance (U) Clear [facility] Automated urine sediment bud ding yeast count by microscopy (number/high power field)Ordered By: Judy Kaushikpura on 04-22-2022 Yeast.budding LM.HPF (Urine sed) [#/Area] Large /HPF NONE SEEN [facility] Automated urine white blood cell countOrdered By: Judy Pompura on 04-22-2022 WBC Auto (U) [#/Vol] >100 /HPF NONE SEEN [facility] Basic Metabolic Panelon 04-04 Anion gap [Moles/Vol] 10.0 mmol/L Normal - [facility] ([place]) Comment on above: Performed By: #### 6 30-4 #### [facility] [address] [place] [address] Calcium [Mass/Vol] 8.4 mg/dL Low 8.5-10.5 [facility] ([place]) Comment on above: Performed By: #### 6 30-4 #### [facility] [address] [place] [address] Chloride [Moles/Vol] 102 mmol/L Normal 98-107 [facility] ([place]) Comment on above: Performed By: #### 6 30-4 #### [facility] [address] [place] [address] CO2 [Moles/Vol] 20 mmol/L Low 21-31 [facility] ([place]) Comment on above: Performed By: #### 6 30-4 #### [facility] [address] [place] [address] Creatinine [Moles/Vol] 1.2 mg/dL Normal 0.6-1.3 [facility] ([place]) Comment on above: Performed By: #### 6 30-4 #### [facility] [address] [place] [address] Creatinine and Glomerular filtration rate.predicted panel (S/P/Bld) 72 mL/min Normal >60 [facility] ([place] Comment on above: Performed By: #### 6 30-4 #### [facility] [address] [place] [address] GFR/1.73 sq M.predicted among non-blacks MDRD (S/P/Bld) [Vol rate/Area] 60 mL/min/{1.73_m2} Normal >60 [facility] ([place]) Comment on above: Performed By: #### 6 30-4 #### [facility] [address] [place] [address] Glucose [Mass/Vol] 255 mg/dL High 70-99 [facility] ([place] Comment on above: Performed By: #### 6 30-4 #### [facility] [address] [place] [address] Potassium [Moles/Vol] 3.3 mmol/L Low 3.6-5.0 [facility] ([place]) Comment on above: Performed By: #### 6 30-4 #### [facility] [address] [place] [address] Sodium [Moles/Vol] 132 mmol/L Low 135-145 [facility] ([place] Comment on above: Performed By: #### 6 30-4 #### [facility] [address] [place] [address] Urea nitrogen [Mass/Vol] 18 mg/dL Normal 6-20 [facility] ([place] Comment on above: Performed By: #### 6 30-4 #### [address] [address] CBC W/ Auto Diffon 2 Basophils (Bld) [#/Vol] 0.1 10*3/uL Normal 0.00-0.20 [facility] ([place] Comment on above: Performed By: #### 6 30-4 #### [facility] [address] [place] [address] Basophils/100 WBC (Bld) 0.9 % Normal 0.0-1.5 [facility] ([place]) Comment on above: Performed By: #### 6 30-4 #### [facility] [address] [place] [address] Eosinophils (Bld) [#/Vol] 0.2 10*3/uL Normal 0.00-0.33 [facility] ([place] Comment on above: Performed By: #### 6 30-4 #### [facility] [address] [place] [address] Eosinophils/100 WBC (Bld) 2.8 % Normal 0.0-3.0 [facility] ([place] Comment on above: Performed By: #### 6 30-4 #### [facility] [address] [place] [address] Erythrocyte distribution width (RBC) [Ratio] 13.5 % Normal 10.9-14.3 [facility] ([place] Comment on above: Performed By: #### 6 30-4 #### [facility] [address] [place] [address] Hematocrit (Bld) [Volume fraction] 39.4 % Low 41.0-50.0 [facility] ([place] Comment on above: Performed By: #### 6 30-4 #### [facility] [address] [place] [address] Hemoglobin (Bld) [Mass/Vol] 13.1 g/dL Low 13.5-16.5 [facility] ([place] Comment on above: Performed By: #### 6 30-4 #### [facility] [address] [place] [address] Lymphocytes Auto (Unsp spec) [#/Vol] 1.1 10*3/uL Normal 1.10-4.80 [facility] ([place] Comment on above: Performed By: #### 6 30-4 #### [facility] [address] [place] [address] Lymphocytes/100 WBC (Bld) 15.1 % Low 24.0-44.0 [facility] ([place] Comment on above: Performed By: #### 6 30-4 #### [facility] [address] [place] [address] MCH (RBC) [Entitic mass] 29.1 pg Normal 28.0-34.0 [facility] ([place] Comment on above: Performed By: #### 6 30-4 #### [address] [address] MCHC (RBC) [Mass/Vol] 33.2 g/dL Normal 33.0-37.0 [facility] ([place]) Comment on above: Performed By: #### 6 30-4 #### [address] [place] [address] MCV (RBC) [Entitic vol] 87.7 fL Normal 80.0-100.0 [facility] ([place] Comment on above: Performed By: #### 6 30-4 #### [facility] [address] [place] [address] Monocytes (Bld) [#/Vol] 0.8 10*3/uL High 0.20-0.70 [facility] ([place] Comment on above: Performed By: #### 6 30-4 #### [facility] [address] [place] [address] Monocytes/100 WBC (Bld) 11.9 % High 3.4-9.0 [facility] ([place] Comment on above: Performed By: #### 6 30-4 #### [facility] [address] [place] [address] Neutrophils (Bld) [#/Vol] 4.8 10*3/uL Normal 1.83-8.70 [facility] ([place] Comment on above: Performed By: #### 6 30-4 #### [facility] [address] [place] [address] Neutrophils/100 WBC (Bld) 69.3 % Normal 40.0-74.0 [facility] ([place] Comment on above: Performed By: #### 6 30-4 #### [facility] [address] [place] [address] Platelet mean volume (Bld) [Entitic vol] 6.5 fL Low 7.4-10.4 [facility] ([place] Comment on above: Performed By: #### 6 30-4 #### [address] [address] Platelets (Bld) [#/Vol] 137 10*3/uL Low 150-450 [facility] ([place] Comment on above: Performed By: #### 6 30-4 #### [facility] [address] [place] [address] RBC (Bld) [#/Vol] 4.49 10*6/uL Low 4.50-5.50 [facility] ([place] Comment on above: Performed By: #### 6 30-4 #### [facility] [address] [place] [address] WBC (Bld) [#/Vol] 6.9 10*3/uL Normal 4.5-11.0 [facility] ([place] Comment on above: Performed By: #### 6 30-4 #### [facility] [address] [place] [address] Detection in urine of either or both bilirubin and urobilinogenOrdered By: Judy Boo on 04-22-2022 Bilirubin+Urobilinogen Ql (U) Negative NEGATIVE [facility] Folate SerPl-mCncon 04-22-20 Folate [Mass/Vol] ng/mL Normal >5.9 [facility] ([place]) Comment on above: Performed By: #### 3 2693-4 #### [facility] [address] [place] [address] Glucose Glucometer (BldC) [M ass/Vol]on 04-22-2022 Glucose [Mass/Vol] 314 mg/dL Normal 70-99 [facility] ([place] Comment on above: Performed By: #### 4 1653-7 #### [facility] [address] [place] [address] Glucose [Mass/Vol] 171 mg/dL Normal 70-99 [facility] ([place] Comment on above: Performed By: #### 3 2693-4 #### [facility] [address] [place] [address] Glucose [Mass/Vol] 292 mg/dL Normal 70-99 [facility] ([place] Comment on above: Performed By: #### C D #### [facility] [address] [place] [address] Glucose [Mass/Vol] 199 mg/dL Normal 70-99 [facility] ([place] Comment on above: Performed By: #### 3 2693-4 #### [facility] [address] [place] [address] Glucose [Mass/volume] in Uri ne by Automated test stripOrdered By: Judy Boo on 04-22-2022 Glucose Auto test strip (U) [Mass/Vol] >=2000 mg/dL NEGATIVE [facility] Laboratory - Hematology and Cell countsOrdered By: Mary Beth Landaverde on 04-22-2022 HbA1c (Bld) [Mass fraction] 10.5 % 4.0-6.0 [facility] Lactate (Bld) [Moles/Vol]on 04-22-2022 Lactate [Moles/Vol] 1.1 mmol/L Normal 0.5-2.0 [facility] ([place] Comment on above: Performed By: #### 2 1020-3 #### [facility] [address] [place] [address] Lactate (Bld) [Moles/Vol]Ord ered By: Mary Beth Landaverde on 04-22-2022 Lactate [Moles/Vol] 1.1 mmol/L 0.5-2.0 [facility] Lipid Panelon 04-22-2022 Cholesterol [Mass/Vol] 99 mg/dL Low 140-200 [facility] ([place]) Comment on above: Performed By: #### 3 2693-4 #### [facility] [address] [place] [address] Cholesterol in HDL [Mass/Vol] 23 mg/dL Low 29-71 [facility] ([place] Comment on above: Performed By: #### 3 2693-4 #### [facility] [address] [place] [address] Cholesterol in LDL [Mass/Vol] 46 mg/dL Normal <129 [facility] ([place] Comment on above: Performed By: #### 3 2693-4 #### [facility] [address] [place] [address] Cholesterol in LDL/Cholesterol in HDL [Mass ratio] 2.0 {ratio} Normal [facility] ([place]) Comment on above: Result Comment: MEN WOMEN 1/2 Average Risk 1.00 1.47 Average Risk 3.55 3.22 2X Average Risk 6.25 5.03 3X Average Risk 7.99 6.14 Performed By: #### 3 2693-4 #### [address] [address] Triglyceride [Mass/Vol] 189 mg/dL Normal 41-189 [facility] ([place]) Comment on above: Performed By: #### 3 2693-4 #### [address] [address] MR angio head wo conon 04-22 MR angio head wo con [address] [address] Magnetic Resonance Report Signed Patient: CHARLI PORRAS#: [id number] : 1950 Acct:[id number] Age/Sex: 71 / M Admit Date: 04/19/22 Loc: 2T 2004-[address]: Verito Devi MD Ordering Physician: Mary Beth Landaverde NP Date of Service: 04/22/22 Procedure(s): MR angio head wo con; MR angio neck wo con Accession Number(s): [id number]; [id number] cc: Mary Beth Landaverde NP PHYSICIAN INDICATIONS: Pain 3T MR Angiogram Head: TECHNIQUE: 3T MRI. 3-D mquu-fl-xkgyvm images were obtained to the head without [...] MR Angiogram Neck: TECHNIQUE: 3T MRI. 3-D wwbh-ne-ilzdso MRI images of the neck were obtained [...] Signed By: Yunior Hickey MD 04/22/22 1538 Regional Director Of Admissions: [facility] ([place]) MR angio neck wo conon 04-22 MR angio neck wo con [facility] [address] [place] [address] Magnetic Resonance Report Signed Patient: CHARLI PORRAS R#: [id number] : 1950 Acct:[id number] Age/Sex: 71 / M Admit Date: 04/19/22 Loc: 2T 2004-[address]: Verito Devi MD Ordering Physician: Mary Beth Landaverde NP Date of Service: 04/22/22 Procedure(s): MR angio head wo con; MR angio neck wo con Accession Number(s): [id number]; [id number] cc: Mary Beth Landaverde NP PHYSICIAN INDICATIONS: Pain 3T MR Angiogram Head: TECHNIQUE: 3T MRI. 3-D kxdr-sx-tputve images were obtained to the head without [...] MR Angiogram Neck: TECHNIQUE: 3T MRI. 3-D gewd-ip-tqmyyv MRI images of the neck were obtained [...] 37 Signed By: Yunior Hickey MD 04/22/221537 Regional Director Of Admissions: [facility] ([place]) MR brain wo conon 04-22-2022 MR brain wo con [facility] [address] [place] [address] Magnetic Resonance Report Signed Patient: CHARLI PORRAS R#: [id number] : 1950 Acct:[id number] Age/Sex: 71 / M Admit Date: 04/19/22 Loc: 2T 2004- Attending Dr: Verito Devi MD Ordering Physician: Mary Beth Landaverde NP Date of Service: 04/22/22 Procedure(s): MR brain wo con Accession Number(s): [id number] cc: Mary Beth Landaverde NP PHYSICIAN INDICATIONS: [...] Signed By: Yunior Hickey MD 04/22/22 152 Regional Director Of Admissions: [facility] Normal [facility] ([place]) Mucus [Presence] in Urine by AutomatedOrdered By: Judy Boo on 04-22-2022 Mucus Auto Ql (U) Small /HPF NONE SEEN [facility] No Panel InformationOrdered By: Judy Boo on 04-22-2022 Urine Culture Reflexed Reflexed to culture [facility] Comment on above: A Urine Culture has been added to this specimen. Prothrombin Time on Coumadin on 04-22-2022 INR Coag (PPP) [Relative time] 2.74 {INR} Normal 2.00-3.50 [facility] ([place]) Comment on above: Performed By: #### 9 4500-6 #### [facility] [address] [place] [address] RBC LM Ql (Urine sed)Ordered By: Judy Boo on 04-22-2022 RBC Ql (U) 11-20 /HPF NONE SEEN [facility] Serum or plasma cholesterol in LDL measurement (mass/volume)Ordered By: Mary Beth Landaverde on 04-22-2022 Cholesterol in LDL [Mass/Vol] 46 mg/dL <128 [facility] Serum or plasma cholesterol measurement (mass/volume)Ordered By: Mary Beth Landaverde on 04-22-2022 Cholesterol [Mass/Vol] 99 mg/dL 140-200 [facility] Serum or plasma folate measu rement (mass/volume)Ordered By: Mary Beth Landaverde on 04-22-2022 Folate [Mass/Vol] ng/mL >6.0 [facility] Serum or plasma gabapentin m easurementOrdered By: Mary Beth Landaverde on 04-22-2022 Gabapentin [Moles/Vol] 9.4 ug/mL 4.0-16.0 [facility] Comment on above: Detection Limit = 1. 0Performed at: [facility] [id number] Director: Martha Gaming MD, Phone: [phone] Serum or plasma high density lipoprotein (HDL) cholesterol measurementOrdered By: Mary Beth Landaverde on 04-22-2022 Cholesterol in HDL [Mass/Vol] 23 mg/dL 29-71 [facility] Serum or plasma low density lipoprotein (LDL) cholesterol/high density lipoprotein (HOrdered By: Mary Beth Landaverde on 04-22-2022 Cholesterol in LDL/Cholesterol in HDL [Mass ratio] 2.0 {ratio} [facility] Comment on above: MEN WOMEN1/2 Average Risk 1.00 1.47Average Risk 3.55 3.222X Average Risk 6.25 5.033X Average Risk 7.99 6.14 Serum or plasma thyroid stim ulating hormone (TSH) measurementOrdered By: Mary Beth Landaverde on 04-22-2022 TSH Qn 3.00 uIU/mL 0.34-5.60 [facility] Serum or plasma triglyceride measurement (mass/volume)Ordered By: Mary Beth Landaverde on 04-22-2022 Triglyceride [Mass/Vol] 189 mg/dL 41-189 [facility] Specific gravity of UrineOrd ered By: Judy Boo on 04-22-2022 Specific gravity (U) [Rel density] 1.015 1.001-1.035 [facility] TSH SerPl-aCncon 04-22-2022 TSH Qn 3.00 uIU/mL Normal 0.34-5.60 [facility] ([place]) Comment on above: Performed By: #### 3 2693-4 #### [facility] [address] [place] [address] Transitional cells detection in urine sediment by light microscopyOrdered By: Judy Boo on 04-22-2022 Transitional cells LM Ql (Urine sed) Not Reportable [facility] Urinalysis complete panel (U )on 04-22-2022 Mucus Auto Ql (U) SMALL Normal NONE SEEN [facility] ([place]) Comment on above: Order Comment: Urine Collect Straight Cath Performed By: #### 4 1653-7 #### [facility] [address] [place] [address] RBC Ql (U) 11-20 Normal NONE SEEN [facility] ([place]) Comment on above: Order Comment: Urine Collect Straight Cath Performed By: #### 4 1653-7 #### [facility] [address] [place] [address] WBC Auto (U) [#/Vol] >100 Normal NONE SEEN [facility] ([place]) Comment on above: Order Comment: Urine Collect Straight Cath Performed By: #### 4 1653-7 #### [facility] [address] [place] [address] Yeast.budding LM.HPF (Urine sed) [#/Area] LARGE Normal NONE SEEN [facility] ([place]) Comment on above: Order Comment: Urine Collect Straight Cath Performed By: #### 4 1653-7 #### [facility] [address] [place] [address] Urine blood detectionOrdered By: Judy Pompmayra on 04-22-2022 RBC Ql (U) Small NEGATIVE [facility] Urine colorOrdered By: Karinari magdaleno Kaushikpmayra on 04-22-2022 Color (U) Yellow [facility] Urine ketones detectionOrder ed By: Judy Pompura on 04-22-2022 Ketones Ql (U) 15 mg/dL NEGATIVE [facility] Urine leukocytes detection b y microscopyOrdered By: Judy Pompura on 04-22-2022 WBC Visual Ql (U) Moderate NEGATIVE [facility] Urine nitrate detectionOrder ed By: Judy Pompura on 04-22-2022 Nitrate Ql (U) Negative NEGATIVE [facility] Urine pHOrdered By: Judy Pompura on 04-22-2022 pH (U) 5.0 [pH] 4.6-8.0 [facility] Urine protein detection by a utomated test stripOrdered By: Judy Boo on 04-22-2022 Protein Auto test strip Ql (U) Negative NEGATIVE [facility] Vit B12 SerPl-mCncon 022 Cobalamin (Vitamin B12) [Mass/Vol] 787 pg/mL Normal 180-914 [facility] ([place]) Comment on above: Performed By: #### 3 2693-4 #### [facility] [address] [place], [place] [address] Vitamin B12 ser/plasOrdered By: Mary Beth Landaverde on 04-22-2022 Cobalamin (Vitamin B12) [Mass/Vol] 787 pg/mL 180-914 [facility] Whole blood estimated averag e glucose determination by estimation from glycated hemoglobin (mass/voluOrdered By: Mary Beth Landaverde on 04-22-2022 Average glucose Estimated from glycated hemoglobin (Bld) [Mass/Vol] 255 mg/dL [facility] XR chest 2Von 04-22-2022 XR chest 2V [facility] [address] [place], [place] [address] XRay Report Signed Patient: CHARLI PORRAS#: [id number] : 1950 Acct:[id number] Age/Sex: 71 / M Admit Date: 04/19/22 Loc: 3T 3026-[address]: Verito Devi MD Ordering Physician: Mary Beth Landaverde NP Date of Service: 04/22/22 Procedure(s): XR chest 2V Accession Number(s): [id number] cc: Mary Beth Landaverde NP PHYSICIAN INDICATIONS: SOB TECHNIQUE: Portable view. FINDINGS: The heart size is normal. The lung seay are clear. No infiltrates are identified. No pleural effusions are present. Postsurgical changes lower cervical spine. IMPRESSION: Chest, Portable: 1. No active pulmonary disease. No change from 04/19/2022. Dictated By: Yunior Hickey MD DD/ [id number] Signed By: Yunior Hickey MD 04/22/22 1444 Regional Director Of Admissions: IBRAHIMA Greenberg [facility] ([place]) Blood prothrombin time (PT) by coagulation assayOrdered By: Verito Devi on 04-21-2022 PT Coag (Bld) [Time] 26.2 s 9.5-12.9 [facility] CBC W/ Auto Diffon Basophils (Bld) [#/Vol] 0.0 10*3/uL Normal 0.00-0.20 [facility] ([place]) Comment on above: Performed By: #### 9 4500-6 #### [facility] [address] [place] [address] Basophils/100 WBC (Bld) 0.5 % Normal 0.0-1.5 [facility] ([place]) Comment on above: Performed By: #### 9 4500-6 #### [facility] [address] [place] [address] Eosinophils (Bld) [#/Vol] 0.1 10*3/uL Normal 0.00-0.33 [facility] ([place]) Comment on above: Performed By: #### 9 4500-6 #### [facility] [facility] [address] [place] [address] Eosinophils/100 WBC (Bld) 1.5 % Normal 0.0-3.0 [facility] ([place]) Comment on above: Performed By: #### 9 4500-6 #### [facility] [address] [place] [address] Erythrocyte distribution width (RBC) [Ratio] 13.2 % Normal 10.9-14.3 [facility] ([place]) Comment on above: Performed By: #### 9 4500-6 #### [facility] [address] [place] [address] Hematocrit (Bld) [Volume fraction] 39.2 % Low 41.0-50.0 [facility] ([place]) Comment on above: Performed By: #### 9 4500-6 #### [address] [address] Hemoglobin (Bld) [Mass/Vol] 13.4 g/dL Low 13.5-16.5 [facility] ([place]) Comment on above: Performed By: #### 9 4500-6 #### [facility] [address] [place] [address] Lymphocytes Auto (Unsp spec) [#/Vol] 1.1 10*3/uL Normal 1.10-4.80 [facility] ([place]) Comment on above: Performed By: #### 9 4500-6 #### [address] [address] Lymphocytes/100 WBC (Bld) 12.3 % Low 24.0-44.0 [facility] ([place]) Comment on above: Performed By: #### 9 4500-6 #### [address] [address] MCH (RBC) [Entitic mass] 29.9 pg Normal 28.0-34.0 [facility] ([place] Comment on above: Performed By: #### 9 4500-6 #### [facility] [address] [place] [address] MCHC (RBC) [Mass/Vol] 34.1 g/dL Normal 33.0-37.0 [facility] ([place]) Comment on above: Performed By: #### 9 4500-6 #### [facility] [address] [place] [address] MCV (RBC) [Entitic vol] 87.7 fL Normal 80.0-100.0 [facility] ([place]) Comment on above: Performed By: #### 9 4500-6 #### [facility] [address] [place] [address] Monocytes (Bld) [#/Vol] 1.0 10*3/uL High 0.20-0.70 [facility] ([place] Comment on above: Performed By: #### 9 4500-6 #### [address] [address] Monocytes/100 WBC (Bld) 11.2 % High 3.4-9.0 [facility] ([place]) Comment on above: Performed By: #### 9 4500-6 #### [facility] [address] [place] [address] Neutrophils (Bld) [#/Vol] 6.7 10*3/uL Normal 1.83-8.70 [facility] ([place] Comment on above: Performed By: #### 9 4500-6 #### [facility] [address] [place] [address] Neutrophils/100 WBC (Bld) 74.5 % High 40.0-74.0 [facility] ([place] Comment on above: Performed By: #### 9 4500-6 #### [address] [address] Platelet mean volume (Bld) [Entitic vol] 6.7 fL Low 7.4-10.4 [facility] ([place] Comment on above: Performed By: #### 9 4500-6 #### [facility] [address] [place] [address] Platelets (Bld) [#/Vol] 136 10*3/uL Low 150-450 [facility] ([place] Comment on above: Performed By: #### 9 4500-6 #### [facility] [address] [place] [address] RBC (Bld) [#/Vol] 4.47 10*6/uL Low 4.50-5.50 [facility] ([place] Comment on above: Performed By: #### 9 4500-6 #### [address] [address] WBC (Bld) [#/Vol] 9.0 10*3/uL Normal 4.5-11.0 [facility] ([place] Comment on above: Performed By: #### 9 4500-6 #### [facility] [address] [place] [address] Comprehensive metabolic 2000 panelon 04-21-2022 Albumin [Mass/Vol] 3.1 g/dL Low 3.4-4.8 [facility] ([place] Comment on above: Performed By: #### 4 1653-7 #### [facility] [address] [place] [address] Albumin/Globulin [Mass ratio] 0.9 {ratio} Low 1.1-2.2 [facility] ([place] Comment on above: Performed By: #### 4 1653-7 #### [facility] [address] [place] [address] ALP [Catalytic activity/Vol] 73 U/L Normal 42-121 [facility] ([place] Comment on above: Performed By: #### 4 1653-7 #### [address] [address] ALT [Catalytic activity/Vol] 25 U/L Normal 10-63 [facility] ([place] Comment on above: Performed By: #### 4 1653-7 #### [facility] [address] [place] [address] Anion gap [Moles/Vol] 9.0 mmol/L Normal 3-11 [facility] ([place]) Comment on above: Performed By: #### 4 1653-7 #### [facility] [address] [place] [address] AST [Catalytic activity/Vol] 28 U/L Normal 10-41 [facility] ([place] Comment on above: Performed By: #### 4 1653-7 #### [facility] [address] [place] [address] Bilirubin [Mass/Vol] 1.0 mg/dL Normal 0.3-1.5 [facility] ([place]) Comment on above: Performed By: #### 4 1653-7 #### [facility] [address] [place] [address] Calcium [Mass/Vol] 8.1 mg/dL Low 8.5-10.5 [facility] ([place] Comment on above: Performed By: #### 4 1653-7 #### [facility] [address] [place] [address] Chloride [Moles/Vol] 101 mmol/L Normal 98-107 [facility] ([place]) Comment on above: Performed By: #### 4 1653-7 #### [facility] [address] [place] [address] CO2 [Moles/Vol] 22 mmol/L Normal 21-31 [facility] ([place] Comment on above: Performed By: #### 4 1653-7 #### [facility] [address] [place] [address] Creatinine [Moles/Vol] 1.1 mg/dL Normal 0.6-1.3 [facility] ([place]) Comment on above: Performed By: #### 4 1653-7 #### [facility] [address] [place] [address] Creatinine and Glomerular filtration rate.predicted panel (S/P/Bld) 80 mL/min Normal >60 [facility] ([place] Comment on above: Performed By: #### 4 1653-7 #### [facility] [address] [place] [address] GFR/1.73 sq M.predicted among non-blacks MDRD (S/P/Bld) [Vol rate/Area] 66 mL/min/{1.73_m2} Normal >60 [facility] ([place] Comment on above: Performed By: #### 4 1653-7 #### [facility] [address] [place] [address] Globulin (S) [Mass/Vol] 3.6 g/dL Normal 1.9-3.9 [facility] ([place]) Comment on above: Performed By: #### 4 1653-7 #### [facility] [address] [place] [address] Glucose [Mass/Vol] 251 mg/dL High 70-99 [facility] ([place] Comment on above: Performed By: #### 4 1653-7 #### [facility] [address] [place] [address] Potassium [Moles/Vol] 3.9 mmol/L Normal 3.6-5.0 [facility] ([place]) Comment on above: Performed By: #### 4 1653-7 #### [facility] [address] [place] [address] Protein [Mass/Vol] 6.7 g/dL Normal 5.9-7.8 [facility] ([place] Comment on above: Performed By: #### 4 1653-7 #### [facility] [address] [place] [address] Sodium [Moles/Vol] 132 mmol/L Low 135-145 [facility] ([place] Comment on above: Performed By: #### 4 1653-7 #### [facility] [address] [place] [address] Urea nitrogen [Mass/Vol] 21 mg/dL High 6-20 [facility] ([place] Comment on above: Performed By: #### 4 1653-7 #### [facility] [address] [place] [address] Glucose Glucometer (BldC) [M ass/Vol]on 04-21-2022 Glucose [Mass/Vol] 209 mg/dL Normal 70-99 [facility] ([place] Comment on above: Performed By: #### 4 1653-7 #### [facility] [address] [place] [address] Glucose [Mass/Vol] 195 mg/dL Normal 70-99 [facility] ([place] Comment on above: Performed By: #### 6 30-4 #### [facility] [address] [place] [address] Glucose [Mass/Vol] 263 mg/dL Normal 70-99 [facility] ([place] Comment on above: Performed By: #### 4 1653-7 #### [facility] [address] [place] [address] Glucose [Mass/Vol] 245 mg/dL Normal 70-99 [facility] ([place] Comment on above: Performed By: #### C D #### [facility] [address] [place] [address] Glucose [Mass/Vol] 235 mg/dL Normal 70-99 [facility] ([place] Comment on above: Performed By: #### 9 4500-6 #### [facility] [address] [place] [address] Platelet poor plasma interna tional normalized ratio (INR) by coagulation assay (relatOrdered By: Verito Devi on 04-21-2022 INR Coag (PPP) [Relative time] 2.32 {INR} 0.80-2.00 [facility] Prothrombin Time INR w/o Cou mon 04-21-2022 PT Coag (Bld) [Time] 26.2 s High 9.5-12.9 [facility] ([place]) Comment on above: Performed By: #### 4 1653-7 #### [facility] [address] [place] [address] Prothrombin Time on Coumadin on 04-21-2022 INR Coag (PPP) [Relative time] 2.32 {INR} High 0.80-2.00 [facility] ([place] Comment on above: Performed By: #### 9 4500-6 #### [facility] [address] [place] [address] Performed By: #### 4 1653-7 #### [facility] [address] [place] [address] Reflex Urn Culton 04-21-2022 Bacteria identified Cx Nom (U) ORGANISM ID: 1.1 - Presumptive Callie glabrata [place] Count 50,000-100,000 CFU/ml Normal [facility] ([place] Comment on above: Performed By: #### 4 1653-7 #### [facility] [address] [place] [address] Basic Metabolic Panelon 04-03 Anion gap [Moles/Vol] 11.0 mmol/L Normal 3-11 [facility] ([place]) Comment on above: Performed By: #### 6 30-4 #### [facility] [address] [place] [address] Calcium [Mass/Vol] 8.3 mg/dL Low 8.5-10.5 [facility] ([place] Comment on above: Performed By: #### 6 30-4 #### [facility] [address] [place] [address] Chloride [Moles/Vol] 100 mmol/L Normal 98-107 [facility] ([place]) Comment on above: Performed By: #### 6 30-4 #### [facility] [address] [place] [address] CO2 [Moles/Vol] 21 mmol/L Normal 21-31 [facility] ([place] Comment on above: Performed By: #### 6 30-4 #### [facility] [address] [place] [address] Creatinine [Moles/Vol] 1.4 mg/dL High 0.6-1.3 [facility] ([place]) Comment on above: Performed By: #### 6 30-4 #### [facility] [address] [place] [address] Creatinine and Glomerular filtration rate.predicted panel (S/P/Bld) 60 mL/min Normal >60 [facility] ([place] Comment on above: Performed By: #### 6 30-4 #### [facility] [address] [place] [address] GFR/1.73 sq M.predicted among non-blacks MDRD (S/P/Bld) [Vol rate/Area] 50 mL/min/{1.73_m2} Normal >60 [facility] ([place] Comment on above: Performed By: #### 6 30-4 #### [facility] [address] [place] [address] Glucose [Mass/Vol] 203 mg/dL High 70-99 [facility] ([place] Comment on above: Performed By: #### 6 30-4 #### [facility] [address] [place] [address] Potassium [Moles/Vol] 4.0 mmol/L Normal 3.6-5.0 [facility] ([place]) Comment on above: Performed By: #### 6 30-4 #### [facility] [address] [place] [address] Sodium [Moles/Vol] 132 mmol/L Low 135-145 [facility] ([place] Comment on above: Performed By: #### 6 30-4 #### [facility] [address] [place] [address] Urea nitrogen [Mass/Vol] 21 mg/dL High 6-20 [facility] ([place] Comment on above: Performed By: #### 6 30-4 #### [facility] [address] [place] [address] C. diff Toxin Assayon 2021 C. difficile glutamate dehydrogenase and toxins A+B IA.rapid Ql (Stl) Negative Normal [facility] ([place]) Comment on above: Result Comment: Nega tive for toxigenic C. difficile Performed By: #### 2 1020-3 #### [facility] [address] [place] [address] CBC W/ Auto Diffon Basophils (Bld) [#/Vol] 0.0 10*3/uL Normal 0.00-0.20 [facility] ([place] Comment on above: Performed By: #### 2 1020-3 #### [facility] [address] [place] [address] Basophils/100 WBC (Bld) 0.3 % Normal 0.0-1.5 [facility] ([place]) Comment on above: Performed By: #### 2 1020-3 #### [facility] [address] [place] [address] Eosinophils (Bld) [#/Vol] 0.0 10*3/uL Normal 0.00-0.33 [facility] ([place] Comment on above: Performed By: #### 2 1020-3 #### [address] [address] Eosinophils/100 WBC (Bld) 0.4 % Normal 0.0-3.0 [facility] ([place] Comment on above: Performed By: #### 2 1020-3 #### [facility] [address] [place] [address] Erythrocyte distribution width (RBC) [Ratio] 13.5 % Normal 10.9-14.3 [facility] ([place] Comment on above: Performed By: #### 2 1020-3 #### [facility] [address] [place] [address] Hematocrit (Bld) [Volume fraction] 38.5 % Low 41.0-50.0 [facility] ([place] Comment on above: Performed By: #### 2 1020-3 #### [facility] [address] [place] [address] Hemoglobin (Bld) [Mass/Vol] 12.9 g/dL Low 13.5-16.5 [facility] ([place] Comment on above: Performed By: #### 2 1020-3 #### [facility] [address] [place] [address] Lymphocytes Auto (Unsp spec) [#/Vol] 1.0 10*3/uL Low 1.10-4.80 [facility] ([place] Comment on above: Performed By: #### 2 1020-3 #### [address] [address] Lymphocytes/100 WBC (Bld) 12.1 % Low 24.0-44.0 [facility] ([place] Comment on above: Performed By: #### 2 1020-3 #### [facility] [address] [place] [address] MCH (RBC) [Entitic mass] 29.7 pg Normal 28.0-34.0 [facility] ([place] Comment on above: Performed By: #### 2 1020-3 #### [facility] [address] [place] [address] MCHC (RBC) [Mass/Vol] 33.6 g/dL Normal 33.0-37.0 [facility] ([place]) Comment on above: Performed By: #### 2 1020-3 #### [address] [address] MCV (RBC) [Entitic vol] 88.4 fL Normal 80.0-100.0 [facility] ([place] Comment on above: Performed By: #### 2 1020-3 #### [address] [address] Monocytes (Bld) [#/Vol] 1.0 10*3/uL High 0.20-0.70 [facility] ([place] Comment on above: Performed By: #### 2 1020-3 #### [address] [address] Monocytes/100 WBC (Bld) 11.5 % High 3.4-9.0 [facility] ([place]) Comment on above: Performed By: #### 2 1020-3 #### [address] [address] Neutrophils (Bld) [#/Vol] 6.4 10*3/uL Normal 1.83-8.70 [facility] ([place] Comment on above: Performed By: #### 2 1020-3 #### [address] [address] Neutrophils/100 WBC (Bld) 75.7 % High 40.0-74.0 [facility] ([place] Comment on above: Performed By: #### 2 1020-3 #### [address] [address] Platelet mean volume (Bld) [Entitic vol] 6.8 fL Low 7.4-10.4 [facility] ([place] Comment on above: Performed By: #### 2 1020-3 #### [address] [address] Platelets (Bld) [#/Vol] 133 10*3/uL Low 150-450 [facility] ([place] Comment on above: Performed By: #### 2 1020-3 #### [facility] [address] [place] [address] RBC (Bld) [#/Vol] 4.36 10*6/uL Low 4.50-5.50 [facility] ([place] Comment on above: Performed By: #### 2 1020-3 #### [facility] [address] [place] [address] WBC (Bld) [#/Vol] 8.5 10*3/uL Normal 4.5-11.0 [facility] ([place] Comment on above: Performed By: #### 2 1020-3 #### [facility] [address] [place] [address] CO2 (BldV) [Moles/Vol]Ordere d By: Judy Boo on 04-20-2022 CO2 [Moles/Vol] 21.3 mmol/L [facility] CT abdomen pelvis wo conon 1 06-21-2021 CT abdomen pelvis wo [facility] [address] [place] [address] CT Scan Report Signed Patient: CHARLI PORRAS#: [id number] : 1950 Acct:[id number] Age/Sex: 71 / M Admit Date: 04/19/22 Loc: 3026-[address]: Verito Devi MD Ordering Physician: Judy Boo MD Date of Service: 04/20/22 Procedure(s): CT abdomen pelvis wo con Accession Number(s): [id number] cc: Judy Boo MD PHYSICIAN INDICATIONS: Pain [...] 03 Signed By: Yunior Hickey MD 04/20/221403 Regional Director Of Admissions: IBRAHIMA Greenberg [facility] ([place]) Gas panel (BldV)on 2 CO2 (BldV) [Partial pressure] 30 mm[Hg] Low 39-55 [facility]) Comment on above: Performed By: #### 9 4500-6 #### [facility] [address] [place] [address] CO2 [Moles/Vol] 21.3 mmol/L Low 23-29 [facility] ([place] Comment on above: Performed By: #### 9 4500-6 #### [facility] [address] [place] [address] HCO3 (Bld) [Moles/Vol] 20.4 mmol/L Low 22-28 [facility] ([place]) Comment on above: Performed By: #### 9 4500-6 #### [facility] [address] [place] [address] Oxygen (BldV) [Partial pressure] 117.0 mm[Hg] High 30-50 [facility] ([place]) Comment on above: Performed By: #### 9 4500-6 #### [facility] [address] [place] [address] pH (BldV) 7.44 [pH] High 7.31-7.42 [facility]) Comment on above: Performed By: #### 9 4500-6 #### [facility] [address] [place] [address] VBG Oxygen Saturation 99 % High 50-85 [facility] ([place]) Comment on above: Performed By: #### 9 4500-6 #### [facility] [address] [place] [address] Glucose Glucometer (BldC) [M ass/Vol]on 04-20-2022 Glucose [Mass/Vol] 164 mg/dL Normal 70-99 [facility] ([place]) Comment on above: Performed By: #### 9 4500-6 #### [facility] [address] [place] [address] Glucose [Mass/Vol] 176 mg/dL Normal 70-99 [facility] ([place] Comment on above: Performed By: #### 2 1020-3 #### [facility] [address] [place] [address] Glucose [Mass/Vol] 178 mg/dL Normal 70-99 [facility] ([place] Comment on above: Performed By: #### 2 1020-3 #### [facility] [address] [place] [address] Glucose [Mass/Vol] 231 mg/dL Normal 70-99 [facility] ([place] Comment on above: Performed By: #### 9 4500-6 #### [facility] [address] [place] [address] HCO3 (BldV) [Moles/Vol]Order ed By: Judy Boo on 04-20-2022 HCO3 (Bld) [Moles/Vol] 20.4 mmol/L 22-28 [facility] Hemoglobin A1con 04-20-2022 Average glucose Estimated from glycated hemoglobin (Bld) [Mass/Vol] 171 mg/dL Normal [facility] ([place]) Comment on above: Performed By: #### 3 2693-4 #### [facility] [address] [place] [address] HbA1c (Bld) [Mass fraction] 7.6 % High 4.0-6.0 [facility] ([place]) Comment on above: Performed By: #### 3 2693-4 #### [facility] [address] [place] [address] Natriuretic peptide B [Mass/ Vol]on 04-20-2022 Natriuretic peptide B (Bld) [Mass/Vol] 28 pg/mL Normal 0-100 [facility] ([place]) Comment on above: Performed By: #### 4 1653-7 #### [facility] [address] [place] [address] Natriuretic peptide B [Mass/ Vol]Ordered By: Judy Boo on 04-20-2022 Natriuretic peptide B (Bld) [Mass/Vol] 28 pg/mL 0-100 [facility] No Panel InformationOrdered By: Judy Boo on 04-20-2022 Venous Blood Oxygen Saturation 99 % 50-85 [facility] Prothrombin Time on Coumadin on 04-20-2022 INR Coag (PPP) [Relative time] 2.33 {INR} Normal 2.00-3.50 [facility] ([place]) Comment on above: Performed By: #### 3 2693-4 #### [facility] [address] [place] [address] Stool Clostridium difficile panel (glutamate dehydrogenase detection with detection oOrdered By: Judy Boo on 04-20-2022 C. difficile glutamate dehydrogenase and toxins A+B IA.rapid Ql (Stl) Negative [facility] Comment on above: Negative for toxigen ic C. difficile Venous blood pH measurementO rdered By: Judy Boo on 04-20-2022 pH (BldV) 7.44 [pH] 7.31-7.42 [facility] Venous blood partial pressur e of carbon dioxide measurementOrdered By: Judy Boo on 04-20-2022 CO2 (BldV) [Partial pressure] 30 mm[Hg] 39-55 [facility] Venous blood partial pressur e of oxygen measurementOrdered By: Judy Boo on 04-20-2022 Oxygen (BldV) [Partial pressure] 117.0 mm[Hg] 30-50 [facility] ALT (SGPT) ser/plasOrdered B y: Thompson Hayden on 04-19-2022 ALT [Catalytic activity/Vol] 27 U/L 10-63 [facility] Absolute lymphocyte countOrd ered By: Thompson Hayden on 04-19-2022 Lymphocytes Auto (Unsp spec) [#/Vol] 1.3 10*3/uL 1.10-4.80 [facility] Albumin [Mass/volume] in Ser um or PlasmaOrdered By: Thompson Hayden on 04-19-2022 Albumin [Mass/Vol] 4.1 g/dL 3.4-4.8 [facility] Albumin/Globulin [Mass Ratio ] in Serum or PlasmaOrdered By: Thompson Hayden on 04-19-2022 Albumin/Globulin [Mass ratio] 1.0 {ratio} 1.1-2.2 [facility] Alkaline phosphatase [Enzyma tic activity/volume] in Serum or PlasmaOrdered By: Thompson Hayden on 04-19-2022 ALP [Catalytic activity/Vol] 96 U/L 42-121 [facility] Aspartate aminotransferase [ Enzymatic activity/volume] in Serum or PlasmaOrdered By: Thompson Hayden on 04-19-2022 AST [Catalytic activity/Vol] 29 U/L 10-41 [facility] Automated leukocyte clumps c ount in urine sediment (number/area)Ordered By: Thompson Hayden on 04-19-2022 Leukocyte clumps Auto (Urine sed) [#/Area] Moderate /HPF NONE SEEN [facility] Bacteria [Presence] in Urine sediment by Light microscopyOrdered By: Thompson Hayden on 04-19-2022 Bacteria LM Ql (Urine sed) Trace /HPF NONE SEEN [facility] Basophils Auto (Bld) [#/Vol] Ordered By: Thompson Hayden on 04-19-2022 Basophils (Bld) [#/Vol] 0.1 10*3/uL 0.00-0.20 [facility] Basophils/100 WBC Auto (Bld) Ordered By: Thompson Hayden on 04-19-2022 Basophils/100 WBC (Bld) 0.7 % 0.0-1.5 [facility] Bilirubin.total [Mass/volume ] in Serum or PlasmaOrdered By: Thompson Hayden on 04-19-2022 Bilirubin [Mass/Vol] 1.2 mg/dL 0.3-1.5 [facility] Blood Cultureon 04-19-2022 Bacteria identified Anaer+Aer cx Nom (Unsp spec) Bacteria Spec Anaerobe+Aerobe Cult NO GROWTH 5 DAYS Normal [facility] ([place]) Comment on above: Performed By: #### 4 1653-7 #### [facility] [address] [place] [address] Blood creatine kinase-MB yenny surement (mass/volume)Ordered By: Judy Boo on 04-19-2022 CK.MB (Bld) [Mass/Vol] 0.9 ng/mL 0-9.0 [facility] Blood magnesium measurement (mass/volume)Ordered By: Thompson Hayden on 04-19-2022 Magnesium (Bld) [Mass/Vol] 1.7 mEq/L 1.6-2.6 [facility] CBC W/ Auto Diffon Basophils (Bld) [#/Vol] 0.1 10*3/uL Normal 0.00-0.20 [facility] ([place]) Comment on above: Performed By: #### C D #### [facility] [address] [place] [address] Basophils/100 WBC (Bld) 0.7 % Normal 0.0-1.5 [facility] ([place]) Comment on above: Performed By: #### C D #### [facility] [address] [place] [address] Eosinophils (Bld) [#/Vol] 0.1 10*3/uL Normal 0.00-0.33 [facility] ([place]) Comment on above: Performed By: #### C D #### [facility] [address] [place] [address] Eosinophils/100 WBC (Bld) 0.6 % Normal 0.0-3.0 [facility] ([place]) Comment on above: Performed By: #### C D #### [facility] [address] [place] [address] Erythrocyte distribution width (RBC) [Ratio] 13.7 % Normal 10.9-14.3 [facility] ([place]) Comment on above: Performed By: #### C D #### [facility] [address] [place] [address] Hematocrit (Bld) [Volume fraction] 46.6 % Normal 41.0-50.0 [facility] ([place] Comment on above: Performed By: #### C D #### [facility] [address] [place] [address] Hemoglobin (Bld) [Mass/Vol] 15.6 g/dL Normal 13.5-16.5 [facility] ([place]) Comment on above: Performed By: #### C D #### [facility] [address] [place] [address] Lymphocytes Auto (Unsp spec) [#/Vol] 1.3 10*3/uL Normal 1.10-4.80 [facility] ([place] Comment on above: Performed By: #### C D #### [facility] [address] [place] [address] Lymphocytes/100 WBC (Bld) 12.6 % Low 24.0-44.0 [facility] ([place] Comment on above: Performed By: #### C D #### [facility] [address] [place] [address] MCH (RBC) [Entitic mass] 29.7 pg Normal 28.0-34.0 [facility] ([place] Comment on above: Performed By: #### C D #### [address] [address] MCHC (RBC) [Mass/Vol] 33.4 g/dL Normal 33.0-37.0 [facility] ([place]) Comment on above: Performed By: #### C D #### [address] [address] MCV (RBC) [Entitic vol] 88.9 fL Normal 80.0-100.0 [facility] ([place]) Comment on above: Performed By: #### C D #### [facility] [address] [place] [address] Monocytes (Bld) [#/Vol] 0.8 10*3/uL High 0.20-0.70 [facility] ([place] Comment on above: Performed By: #### C D #### [address] [address] Monocytes/100 WBC (Bld) 8.4 % Normal 3.4-9.0 [facility] ([place]) Comment on above: Performed By: #### C D #### [facility] [address] [place] [address] Neutrophils (Bld) [#/Vol] 7.8 10*3/uL Normal 1.83-8.70 [facility] ([place] Comment on above: Performed By: #### C D #### [facility] [address] [place] [address] Neutrophils/100 WBC (Bld) 77.7 % High 40.0-74.0 [facility] ([place] Comment on above: Performed By: #### C D #### [address] [address] Platelet mean volume (Bld) [Entitic vol] 6.6 fL Low 7.4-10.4 [facility] ([place] Comment on above: Performed By: #### C D #### [address] [address] Platelets (Bld) [#/Vol] 165 10*3/uL Normal 150-450 [facility] ([place] Comment on above: Performed By: #### C D #### [facility] [address] [place] [address] RBC (Bld) [#/Vol] 5.24 10*6/uL Normal 4.50-5.50 [facility] ([place] Comment on above: Performed By: #### C D #### [facility] [address] [place] [address] WBC (Bld) [#/Vol] 10.1 10*3/uL Normal 4.5-11.0 [facility] ([place] Comment on above: Performed By: #### C D #### [facility] [address] [place] [address] CK + isoenzymes totalOrdered By: Judy Boo on 04-19-2022 CK [Catalytic activity/Vol] 106 U/L 49-397 [facility] CK MB Bld-mCncon 04-19-2022 CK.MB (Bld) [Mass/Vol] 0.9 ng/mL Normal 0-9.0 [facility] ([place]) Comment on above: Performed By: #### 6 30-4 #### [facility] [address] [place] [address] CK SerPl-cCncon 04-19-2022 CK [Catalytic activity/Vol] 106 U/L Normal 49-397 [facility] ([place] Comment on above: Performed By: #### 6 30-4 #### [facility] [address] [place] [address] CT head/brain wo conon 04-19 CT head/brain wo [facility] [address] [place] [address] CT Scan Report Signed Patient: CHARLI PORRAS Alma#: [id number] : 1950 Acct:[id number] Age/Sex: 71 / M Admit Date: 04/18/22 Loc: ER Attending Dr: Ordering Physician: Thompson Hayden MD Date of Service: 04/19/22 Procedure(s): CT head/brain wo con Accession Number(s): [id number] cc: Thompson Hayden MD INDICATION: Altered mental [...] Signed By: Yimi Llanos MD 04/19/22 0425 Regional Director Of Admissions: Normal [facility] ([place]) Carbon dioxide, total [Moles /volume] in Serum or PlasmaOrdered By: Thompson Hayden on 04-19-2022 CO2 [Moles/Vol] 24 mmol/L 21-31 [facility] Chloride [Moles/volume] in S maricel or PlasmaOrdered By: Thompson Hayden on 04-19-2022 Chloride [Moles/Vol] 94 mmol/L 98-107 [facility] Comprehensive metabolic 2000 panelon 04-19-2022 Albumin [Mass/Vol] 4.1 g/dL Normal 3.4-4.8 [facility] ([place] Comment on above: Performed By: #### 4 1653-7 #### [facility] [address] [place] [address] Albumin/Globulin [Mass ratio] 1.0 {ratio} Low 1.1-2.2 [facility] ([place] Comment on above: Performed By: #### 4 1653-7 #### [facility] [address] [place] [address] ALP [Catalytic activity/Vol] 96 U/L Normal 42-121 [facility] ([place] Comment on above: Performed By: #### 4 1653-7 #### [facility] [address] [place] [address] ALT [Catalytic activity/Vol] 27 U/L Normal 10-63 [facility] ([place] Comment on above: Performed By: #### 4 1653-7 #### [facility] [address] [place] [address] Anion gap [Moles/Vol] 13.0 mmol/L High 3-11 [facility] ([place]) Comment on above: Performed By: #### 4 1653-7 #### [facility] [address] [place] [address] AST [Catalytic activity/Vol] 29 U/L Normal 10-41 [facility] ([place] Comment on above: Performed By: #### 4 1653-7 #### [facility] [address] [place] [address] Bilirubin [Mass/Vol] 1.2 mg/dL Normal 0.3-1.5 [facility] ([place]) Comment on above: Performed By: #### 4 1653-7 #### [facility] [address] [place] [address] Calcium [Mass/Vol] 9.0 mg/dL Normal 8.5-10.5 [facility] ([place] Comment on above: Performed By: #### 4 1653-7 #### [facility] [address] [place] [address] Chloride [Moles/Vol] 94 mmol/L Low 98-107 [facility] ([place]) Comment on above: Performed By: #### 4 1653-7 #### [facility] [address] [place] [address] CO2 [Moles/Vol] 24 mmol/L Normal 21-31 [facility] ([place] Comment on above: Performed By: #### 4 1653-7 #### [facility] [address] [place] [address] Creatinine [Moles/Vol] 1.5 mg/dL High 0.6-1.3 [facility] ([place]) Comment on above: Performed By: #### 4 1653-7 #### [facility] [address] [place] [address] Creatinine and Glomerular filtration rate.predicted panel (S/P/Bld) 56 mL/min Normal >60 [facility] ([place] Comment on above: Performed By: #### 4 1653-7 #### [facility] [address] [place] [address] GFR/1.73 sq M.predicted among non-blacks MDRD (S/P/Bld) [Vol rate/Area] 46 mL/min/{1.73_m2} Normal >60 [facility] ([place]) Comment on above: Performed By: #### 4 1653-7 #### [facility] [address] [place] [address] Globulin (S) [Mass/Vol] 4.1 g/dL High 1.9-3.9 [facility] ([place]) Comment on above: Performed By: #### 4 1653-7 #### [facility] [address] [place] [address] Glucose [Mass/Vol] 273 mg/dL High 70-99 [facility] ([place] Comment on above: Performed By: #### 4 1653-7 #### [facility] [address] [place] [address] Potassium [Moles/Vol] 4.1 mmol/L Normal 3.6-5.0 [facility] ([place]) Comment on above: Performed By: #### 4 1653-7 #### [facility] [address] [place] [address] Protein [Mass/Vol] 8.2 g/dL High 5.9-7.8 [facility] ([place] Comment on above: Performed By: #### 4 1653-7 #### [facility] [address] [place] [address] Sodium [Moles/Vol] 131 mmol/L Low 135-145 [facility] ([place] Comment on above: Performed By: #### 4 1653-7 #### [facility] [address] [place] [address] Urea nitrogen [Mass/Vol] 18 mg/dL Normal 6-20 [facility] ([place] Comment on above: Performed By: #### 4 1653-7 #### [facility] [address] [place] [address] Creatinine and Glomerular fi ltration rate.predicted panel (S/P/Bld)Ordered By: Thompson Hayden on 04-19-2022 GFR/1.73 sq M.predicted MDRD (S/P/Bld) [Vol rate/Area] 56 mL/min/{1.73_m2} >60 [facility] Eosinophils Auto (Bld) [#/Vo l]Ordered By: Thompson Hayden on 04-19-2022 Eosinophils (Bld) [#/Vol] 0.1 10*3/uL 0.00-0.33 [facility] Eosinophils/100 WBC Auto (Bl d)Ordered By: Thompson Hayden on 04-19-2022 Eosinophils/100 WBC (Bld) 0.6 % 0.0-3.0 [facility] Erythrocyte distribution wid th Auto (RBC) [Ratio]Ordered By: Thompson Hayden on 04-19-2022 Erythrocyte distribution width (RBC) [Ratio] 13.7 % 10.9-14.3 [facility] Estimated glomerular filtrat ion rate (GFR) non- AmericanOrdered By: Thompson Hayden on 04-19-2022 GFR/1.73 sq M.predicted among non-blacks MDRD (S/P/Bld) [Vol rate/Area] 46 mL/min/{1.73_m2} >60 [facility] Glucose Glucometer (BldC) [M ass/Vol]on 04-19-2022 Glucose [Mass/Vol] 267 mg/dL Normal 70-99 [facility] ([place] Comment on above: Performed By: #### 2 1020-3 #### [facility] [address] [place] [address] Glucose [Mass/Vol] 223 mg/dL Normal 70-99 [facility] ([place] Comment on above: Performed By: #### 4 1653-7 #### [facility] [address] [place] [address] Hematocrit Auto (Bld) [Volum e fraction]Ordered By: Thompson Hayden on 04-19-2022 Hematocrit (Bld) [Volume fraction] 46.6 % 41.0-50.0 [facility] Hemoglobin [Mass/volume] in BloodOrdered By: Thompson Hayden on 04-19-2022 Hemoglobin (Bld) [Mass/Vol] 15.6 g/dL 13.5-16.5 [facility] Influenza A,B [facility] by PCRon 04-19-2022 FLUBV Ag Ql (Unsp spec) Negative Normal Negative [facility] ([place]) Comment on above: Performed By: #### 6 30-4 #### [facility] [address] [place] [address] Rapid Flu A Negative Normal Negative [facility] ([place] Comment on above: Performed By: #### 6 30-4 #### [facility] [address] [place] [address] Lactate (Bld) [Moles/Vol]on 04-19-2022 Lactate [Moles/Vol] 1.3 mmol/L Normal 0.5-2.0 [facility] ([place] Comment on above: Performed By: #### 2 1020-3 #### [facility] [address] [place] [address] Lactate [Moles/Vol] 2.9 mmol/L Critically high 0.5-2.0 [facility] ([place]) Comment on above: Result Comment: Crit ical result called to and read back by [] at 1517. Performed By: #### 3 2693-4 #### [facility] [address] [place] [address] (549) Lactate (Bld) [Moles/Vol]Ord ered By: Thompson Hayden on 04-19-2022 Lactate [Moles/Vol] 2.9 mmol/L 0.5-2.0 [facility] Comment on above: Critical result call ed to and read back by [] at 1517. Leukocytes detection in urin e sediment by light microscopyOrdered By: Thompson Hayden on 04-19-2022 WBC LM Ql (Urine sed) >100 /HPF NONE SEEN [facility] Lymphocytes/100 WBC Auto (Bl d)Ordered By: Thompson Hayden on 04-19-2022 Lymphocytes/100 WBC (Bld) 12.6 % 24.0-44.0 [facility] MCH Auto (RBC) [Entitic mass ]Ordered By: Thompson Hayden on 04-19-2022 MCH (RBC) [Entitic mass] 29.7 pg 28.0-34.0 [facility] MCHC Auto (RBC) [Mass/Vol]Or dered By: Thompson Hayden on 04-19-2022 MCHC (RBC) [Mass/Vol] 33.4 g/dL 33.0-37.0 [facility] MCV (mean corpuscular volume ) determinationOrdered By: Thompson Hayden on 04-19-2022 MCV (RBC) [Entitic vol] 88.9 fL 80.0-100.0 [facility] Magnesium Bld-mCncon 022 Magnesium (Bld) [Mass/Vol] 1.7 mEq/L Normal 1.6-2.6 [facility] ([place]) Comment on above: Performed By: #### 4 1653-7 #### [facility] [address] [place], [place] [address] Microscopic examination of u rineOrdered By: Thompson Hayden on 04-19-2022 Microscopic observation LM Nom (Urine sed) Yes [facility] Microscopic observation LM N om (Urine sed)on 04-19-2022 Transitional cells LM Ql (Urine sed) OCCASIONAL Normal NONE SEEN [facility] ([place]) Comment on above: Order Comment: Urine Collect Clean Catch Performed By: #### 6 30-4 #### [facility] [address] [place] [address] Monocytes Auto (Bld) [#/Vol] Ordered By: Thompson Hayden on 04-19-2022 Monocytes (Bld) [#/Vol] 0.8 10*3/uL 0.20-0.70 [facility] Monocytes/100 WBC Auto (Bld) Ordered By: Thompson Hayden on 04-19-2022 Monocytes/100 WBC (Bld) 8.4 % 3.4-9.0 [facility] Neutrophils Auto (Bld) [#/Vo l]Ordered By: Thompson Hayden on 04-19-2022 Neutrophils (Bld) [#/Vol] 7.8 10*3/uL 1.83-8.70 [facility] Neutrophils/100 WBC Auto (Bl d)Ordered By: Thompson Hayden on 04-19-2022 Neutrophils/100 WBC (Bld) 77.7 % 40.0-74.0 [facility] No Panel InformationOrdered By: Thompson Hayden on 04-19-2022 Procalcitonin 0.14 ng/mL 0.10-0.50 [facility] Comment on above: *PROCALCITONIN INTER PRETATION*Less than 0.5: Low risk for systemic infection.0.5 to 2.0: Moderate risk for systemic infection.Greater than 2.0: High risk for systemic infection.10.0 or greater: Likelihood of severe sepsis or septic shock. Influenza Type A (Rapid) Negative Negative [facility] Platelet mean volume Auto (B ld) [Entitic vol]Ordered By: Thompson Hayden on 04-19-2022 Platelet mean volume (Bld) [Entitic vol] 6.6 fL 7.4-10.4 [facility] Platelets Auto (Bld) [#/Vol] Ordered By: Thompson Hayden on 04-19-2022 Platelets (Bld) [#/Vol] 165 10*3/uL 150-450 [facility] Potassium [Moles/volume] in Serum or PlasmaOrdered By: Thompson Hayden on 04-19-2022 Potassium [Moles/Vol] 4.1 mmol/L 3.6-5.0 [facility] Procalcitoninon 04-19-2022 Procalcitonin 0.14 ng/mL Normal 0.10-0.50 [facility] ([place]) Comment on above: Result Comment: *PRO CALCITONIN INTERPRETATION* Less than 0.5: Low risk for systemic infection. 0.5 to 2.0: Moderate risk for systemic infection. Greater than 2.0: High risk for systemic infection. 10.0 or greater: Likelihood of severe sepsis or septic shock. Performed By: #### 2 1020-3 #### [address] [address] Prothrombin Time INR w/o Cou mon 04-19-2022 INR Coag (PPP) [Relative time] 2.64 {INR} High 0.80-2.00 [facility] ([place]) Comment on above: Performed By: #### 9 4500-6 #### [address] [address] PT Coag (Bld) [Time] 29.9 s High 9.5-12.9 [facility] ([place]) Comment on above: Performed By: #### 9 4500-6 #### [address] [address] RBC Auto (Bld) [#/Vol]Ordere d By: Thompson Hayden on 04-19-2022 RBC (Bld) [#/Vol] 5.24 10*6/uL 4.50-5.50 [facility] RBC LM Ql (Urine sed)Ordered By: Thompson Hayden on 04-19-2022 RBC Ql (U) 10-20 /HPF NONE SEEN [facility] Rapid influenza B antigen de tectionOrdered By: Thompson Hayden on 04-19-2022 FLUBV Ag Ql (Unsp spec) Negative Negative [facility] Respiratory specimen COVID-1 9 virus RNA detectionOrdered By: Thompson Hayden on 04-19-2022 SARS-CoV-2 (COVID-19) RNA LIV+probe Ql (Resp) [facility] SARS-CoV2 PCRon 04-19-2022 SARS-CoV-2 (COVID-19) RNA [...] authorization is terminated or revoked sooner. Normal [facility] ([place] Comment on above: Performed By: #### 9 4500-6 #### [facility] [address] [place] [address] Serum globulin measurement ( mass/volume)Ordered By: Thompson Hayden on 04-19-2022 Globulin (S) [Mass/Vol] 4.1 g/dL 1.9-3.9 [facility] Serum glucose measurement (m ass/volume)Ordered By: Thompson Hayden on 04-19-2022 Glucose [Mass/Vol] 273 mg/dL 70-99 [facility] Serum or plasma anion gap de termination (moles/volume)Ordered By: Thompson Hayden on 04-19-2022 Anion gap [Moles/Vol] 13.0 mmol/L 3-11 [facility] Serum or plasma calcium maricel urement (mass/volume)Ordered By: Thompson Jackelyn on 04-19-2022 Calcium [Mass/Vol] 9.0 mg/dL 8.5-10.5 [facility] Serum or plasma creatinine m easurement (moles/volume)Ordered By: Thompson Hayden on 04-19-2022 Creatinine [Moles/Vol] 1.5 mg/dL 0.6-1.3 [facility] Serum or plasma sodium measu rement (moles/volume)Ordered By: Thompson Hayden on 04-19-2022 Sodium [Moles/Vol] 131 mmol/L 135-145 [facility] Serum or plasma urea nitroge n measurement (mass/volume)Ordered By: Thompson Hayden on 04-19-2022 Urea nitrogen [Mass/Vol] 18 mg/dL 6- [facility] Total protein bloodOrdered B y: Thompson Hayden on 04-19-2022 Protein [Mass/Vol] 8.2 g/dL 5.9-7.8 [facility] Troponin I SerPl-mCncon 04-03 Troponin I.cardiac [Mass/Vol] ng/mL Normal <0.03 [facility] ([place]) Comment on above: Performed By: #### 6 30-4 #### [facility] [address] [place], [place] [address] Troponin I ser/plasOrdered B y: Judy Pompura on 04-19-2022 Troponin I.cardiac [Mass/Vol] ng/mL <0.03 [facility] Urinalysison 04-19-2022 Bilirubin+Urobilinogen Ql (U) Negative Normal NEGATIVE [facility] ([place]) Comment on above: Order Comment: Urine Collect Clean Catch Performed By: #### 6 30-4 #### [facility] [address] [place], [place] [address] Glucose Auto test strip (U) [Mass/Vol] 1000 mg/dL Abnormal NEGATIVE [facility] ([place] Comment on above: Order Comment: Urine Collect Clean Catch Performed By: #### 6 30-4 #### [facility] [address] [place] [address] Ketones Ql (U) Negative Normal NEGATIVE [facility] ([place] Comment on above: Order Comment: Urine Collect Clean Catch Performed By: #### 6 30-4 #### [facility] [address] [place] [address] Nitrate Ql (U) Negative Normal NEGATIVE [facility] ([place] Comment on above: Order Comment: Urine Collect Clean Catch Performed By: #### 6 30-4 #### [facility] [address] [place] [address] RBC Ql (U) SMALL Abnormal NEGATIVE [facility] ([place] Comment on above: Order Comment: Urine Collect Clean Catch Performed By: #### 6 30-4 #### [facility] [address] [place] [address] Urobilinogen (U) [Mass/Vol] Negative Normal NEGATIVE [facility] ([place] Comment on above: Order Comment: Urine Collect Clean Catch Performed By: #### 6 30-4 #### [facility] [address] [place] [address] WBC Visual Ql (U) TRACE Abnormal NEGATIVE [facility] ([place] Comment on above: Order Comment: Urine Collect Clean Catch Performed By: #### 6 30-4 #### [facility] [address] [place] [address] Appearance (U) HAZY Normal [facility] ([place] Comment on above: Order Comment: Urine Collect Clean Catch Performed By: #### 6 30-4 #### [facility] [address] [place] [address] Color (U) YELLOW Normal [facility] ([place] Comment on above: Order Comment: Urine Collect Clean Catch Performed By: #### 6 30-4 #### [facility] [address] [place] [address] pH (U) 5.0 [pH] Normal 4.6-8.0 [facility] ([place] Comment on above: Order Comment: Urine Collect Clean Catch Performed By: #### 6 30-4 #### [facility] [address] [place] [address] Protein Auto test strip Ql (U) TRACE Abnormal NEGATIVE [facility] ([place] Comment on above: Order Comment: Urine Collect Clean Catch Performed By: #### 6 30-4 #### [facility] [address] [place] [address] Specific gravity (U) [Rel density] 1.015 Normal 1.001-1.035 [facility] ([place] Comment on above: Order Comment: Urine Collect Clean Catch Performed By: #### 6 30-4 #### [facility] [address] [place] [address] Urobilinogen Test strip (U) [Mass/Vol]Ordered By: Thompson Hayden on 04-19-2022 Urobilinogen (U) [Mass/Vol] Negative NEGATIVE [facility] WBC Auto (Bld) [#/Vol]Ordere d By: Thompson Hayden on 04-19-2022 WBC (Bld) [#/Vol] 10.1 10*3/uL 4.5-11.0 [facility] XR chest 1V portableon 04-19 XR chest 1V portable [facility] [address] [place] [address] XRay Report Signed Patient: CHARLI PORRAS Alma#: [id number] : 1950 Acct:[id number] Age/Sex: 71 / M Admit Date: 04/18/22 Loc: ER Attending Dr: Ordering Physician: Thompson Hayden MD Date of Service: 04/19/22 Procedure(s): XR chest 1V portable Accession Number(s): [id number] cc: Thompson Hayden MD INDICATION: Increased weakness [...] Signed By: Radu Carvalho MD 04/19/22 0100 Regional Director Of Admissions: [facility] ([place]) [facility] 03-10-2022 [place] Patient name: CHARLI PORRAS MR#: [id number] Date of Service: 03/10/22 Acc#: [id number] : 1950 Age: 71 Sex: M Dictated by: Denise Barnes NP Patient Name : CHARLI PORRAS (71yo, M) ID# [id number] Appt. Date/Time : 03/10/2022 02:15PM : 1950 Service Dept. : [facility] Provider : DENISE BARNES APRN, [employer] [facility]PLAC[facility]/ADVANTAGE - HMO) Insurance # : [id number] Policy/Group # : [id number] Med Secondary: [facility] - DOS PRIOR TO 2022 (MEDICAID REPLACEMENT - HMO) Insurance # : [id number] Policy/Group # : [id number] Prescription: [facility] [place] - Member is eligible. details Chief Complaint *pain management pain in legs and back Patient's Care Team Primary Care Provider: ERICKA CASSIDY MD: [address] [place] [address], , Referring Provider: SARAH FELIPEI: [address] [place] [address], , Other: CHARISSE VALENCIA MD: [address] [place] [address], , Patient's Pharmacies [id number]): [id number] [place] [id number], , Vitals BP: 154/75 sitting R arm [...] TIMES EVERY DAY Date: 03/06/22 filled Source: [email or web address] Name: QUEtiapine 100 mg tablet TAKE 1 [...] 03/04/21 filled Source: (more content not included)... [facility] 01-08-2022 JEANNETTE Patient name: CHARLI PORRAS MR#: [id number] Date of Service: 01/08/22 Acc#: [id number] : 1950 Age: 71 Sex: M Dictated by: Maryan Tony MD Patient Name : CHARLI PORRAS (71yo, M) ID# [id number] Appt. Date/Time : 01/08/2022 01:15PM : 1950 Service Dept. : [facility] Provider : MARYAN TONY M.D. Insurance Med Primary: [facility] - MED[facility]LUE (MEDICARE REPLACEMENT/ADVANTAGE - HMO) Insurance # : [id number] Policy/Group # : [id number] Med Secondary: [facility] (MEDICAID REPLACEMENT - HMO) Insurance # : [id number] Policy/Group # : [id number] Prescription: [facility] - Member is eligible. details Prescription: [facility] - Member is eligible. details Chief Complaint *pain management REFILLS; C/O PAIN FROM BACK TO FEET - ALL OVER; WOULD LIKE TO GET AN INJECTION AVING A LOT OF SCIATIC NERVE PAIN DOWN RIGHT SIDE Patient's Care Team Primary Care Provider: ERICKA CASSIDY MD: [address] [place] [address], , Referring Provider: SARAH FELIPEI: [address] [place] [address], Ph [phone], Other: CHARISSE VALENCIA MD: [address] [place] [address], , ax Patient's Pharmacies [facility] (ERX): [address] [address], Ph [phone], Vitals BP: 166/88 sitting [...] QUEtiapine 100 mg (more content not included)... [facility] 11-07-2021 [place] Patient name: CHARLI PORRAS MR#: [id number] Date of Service: 11/07/21 Acc#: [id number] : 1950 Age: 71 Sex: M Dictated by: Maryan Tony MD Patient Name : CHARLI PORRAS (71yo, M) ID# [id number] Appt. Date/Time : 11/07/2021 09:45AM : 1950 Service Dept. : [facility] Provider : MARYAN TONY M.D. Insurance Med Primary: [facility] (MEDICARE REPLACEMENT/ADVANTAGE - HMO) Insurance # : [id number] Policy/Group # : [id number] Med Secondary: [facility] ([place]ICA[place] REPLAC[place] - HMO) Insurance # : [id number] Policy/Group # : [id number] Prescription: [facility] - Member is eligible. details Prescription: [facility] - Member is eligible. details Chief Complaint *pain management refills; c/o pain all over mostly back and legs Patient's Care Team Primary Care Provider: ERICKA CASSIDY MD: [address] [place] [address], , Referring Provider: SARAH FELIPEI: [address] [place] [address], Ph [phone], Other: CHARISSE VALENCIA MD: [address] [place] [address], , ax Patient's Pharmacies [facility] (ER[facility]): [address] [address], Ph [phone], Vitals BP: 141/59 sitting R arm 11/07/2021 [...] Name: risperiDONE 1 (more content not included)... [facility] 08-29-2021 [place] Patient name: CHARLI PORRAS MR#: [id number] Date of Service: 08/29/21 Acc#: [id number] : 1950 Age: 71 Sex: M Dictated by: Maryan Tony MD Patient Name : CHARLI PORRAS (71yo, M) ID# [id number] Appt. Date/Time : 08/29/2021 08:30AM : 1950 Service Dept. : [facility] Provider : MARYAN TONY M.D. Insurance Med Primary[place] [employer] (MEDICARE REPLACEMENT/ADVANTAGE - HMO) Insurance # : [id number] Policy/Group # : [id number] Med Secondary: [facility] (MEDICAID REPLACEMENT - HMO) Insurance # : [id number] Policy/Group # : [id number] Prescription: [facility] - Member is eligible. details Prescription: [facility]RX - Member is eligible. details Chief Complaint medication refill, *pain management refill Patient's Care Team Primary Care Provider: ERICKA CASSIDY MD: [address] [place] [address], , Referring Provider: SARAH FELIPEI: [address] [place] [address], Ph [phone], Other: CHARISSE VALENCIA MD: [address] [place] [address], , ax Patient's Pharmacies [facility] ([place]): [address] [address], Ph [phone], Vitals BP: 104/71 sitting R arm 08/29/2021 [...] TRANSDERMALLYONCE SENTHIL (more content not included)... Normal [facility] BASIC METABOLIC PANELon 07-02 Calcium [Mass/Vol] 9.0 mg/dL Normal 8.5-10.5 [facility] Comment on above: Performed By: #### C OVID19 [id number] #### [facility] [address] [place] [address] Chloride [Moles/Vol] 98 mmol/L Normal 98-107 [facility] Comment on above: Performed By: #### C OVID19 419503 #### [facility] [address] [place] [address] CO2 [Moles/Vol] 29 mmol/L Normal 21-32 [facility] Comment on above: Performed By: #### C OVID19 662300 #### [facility] [address] [place] [address] Creatinine [Mass/Vol] 1.32 mg/dL High 0.70-1.30 [facility] Comment on above: Performed By: #### C OVID19 146286 #### [facility] [address] [place] [address] EST GLOM FILT > 60 Normal [facility] Comment on above: Result Comment: Result [...] 15 . Performed By: #### C OVID19 580779 #### [facility] [address] [place] [address] ESTIMATED GLOM FILT RATE 53 mL/min/ Low [facility] Comment on above: Performed By: #### C OVID19 664551 #### [facility] [address] [place] [address] Glucose [Mass/Vol] 303 mg/dL High 65-99 [facility] Comment on above: Performed By: #### C OVID19 644458 #### [facility] [address] [place] [address] Potassium [Moles/Vol] 3.2 mmol/L Low 3.5-5.1 [facility] Comment on above: Performed By: #### C OVID19 826414 #### [facility] [address] [place] [address] Sodium [Moles/Vol] 135 mmol/L Low 136-145 [facility] Comment on above: Performed By: #### C OVID19 980724 #### [facility] [address] [place] [address] Urea nitrogen [Mass/Vol] 21 mg/dL Normal 7-24 [facility] Comment on above: Performed By: #### C OVID19 526539 #### [facility] [address] [place] [address] CBC with DIFFERENTIALon 07-02 Basophils (Bld) [#/Vol] 0.1 10*3/uL Normal 0.0-0.1 [facility] Comment on above: Performed By: #### C OVID19 788254 #### [facility] [address] [place] [address] Basophils/100 WBC (Bld) 0.7 % Normal 0.0-1.0 [facility] Comment on above: Performed By: #### C OVID19 297266 #### [facility] [address] [place] [address] Eosinophils (Bld) [#/Vol] 0.3 10*3/uL Normal 0.0-0.4 [facility] Comment on above: Performed By: #### C OVID19 564743 #### [facility] [address] [place] [address] Eosinophils/100 WBC (Bld) 3.5 % Normal 1.0-4.0 [facility] Comment on above: Performed By: #### C OVID19 930591 #### [facility] [address] [place] [address] Hematocrit (Bld) [Volume fraction] 41.3 % Low 42.0-52.0 [facility] Comment on above: Performed By: #### C OVID19 501348 #### [facility] [address] [place] [address] Hemoglobin (Bld) [Mass/Vol] 13.6 g/dL Low 14.0-18.0 [facility] Comment on above: Performed By: #### C OVID19 671324 #### [facility] [address] [place] [address] IG # 0.1 10*3/uL Normal 0.0-0.1 [facility] Comment on above: Performed By: #### C OVID19 192927 #### [facility] [address] [place] [address] IG % 1.0 % Normal 0.0-1.0 [facility] Comment on above: Performed By: #### C OVID19 825147 #### [facility] [address] [place] [address] Lymphocytes (Bld) [#/Vol] 1.8 10*3/uL Normal 1.3-4.4 [facility] Comment on above: Performed By: #### C OVID19 818847 #### [facility] [address] [place] [address] Lymphocytes/100 WBC (Bld) 25.4 % Low 27.0-41.0 [facility] Comment on above: Performed By: #### C OVID19 880321 #### [facility] [address] [place] [address] MCV (RBC) [Entitic vol] 89.2 fL Normal 80.0-94.0 [facility] Comment on above: Performed By: #### C OVID19 099704 #### [facility] [address] [place] [address] MEAN CORPUSCULAR HGB 29.4 pg Normal 27.0-31.0 [facility] Comment on above: Performed By: #### C OVID19 599967 #### [facility] [address] [place] [address] MEAN CORPUSCULAR HGB CONC 32.9 g/dl Low 33.0-37.0 [facility] Comment on above: Performed By: #### C OVID19 422592 #### [facility] [address] [place] [address] Monocytes (Bld) [#/Vol] 0.6 10*3/uL Normal 0.1-1.0 [facility] Comment on above: Performed By: #### C OVID19 116533 #### [facility] [address] [place] [address] Monocytes/100 WBC (Bld) 7.8 % Normal 3.0-9.0 [facility] Comment on above: Performed By: #### C OVID19 614772 #### [facility] [address] [place] [address] Neutrophils (Bld) [#/Vol] 4.4 10*3/uL Normal 2.3-7.9 [facility] Comment on above: Performed By: #### C OVID19 991165 #### [facility] [address] [place] [address] Neutrophils/100 WBC (Bld) 61.6 % Normal 47.0-73.0 [facility] Comment on above: Performed By: #### C OVID19 419347 #### [facility] [address] [place] [address] NUCLEATED RED BLOOD CELL 0.0 10*3/uL Normal 0.0-0.0 [facility] Comment on above: Performed By: #### C OVID19 809131 #### [facility] [address] [place] [address] NUCLEATED RED BLOOD CELL 0.0 % Normal 0.0-0.0 [facility] Comment on above: Performed By: #### C OVID19 153565 #### [facility] [address] [place] [address] PLATELET COUNT AUTOMATED 137 10*3/uL Normal 130-400 [facility] Comment on above: Performed By: #### C OVID19 455515 #### [facility] [address] [place] [address] Platelet mean volume (Bld) [Entitic vol] 10.0 fL Normal 9.6-12.3 [facility] Comment on above: Performed By: #### C OVID19 090266 #### [facility] [address] [place] [address] RBC (Bld) [#/Vol] 4.63 10*6/uL Normal 4.50-5.90 [facility] Comment on above: Performed By: #### C OVID19 514865 #### [facility] [address] [place] [address] RED CELL DISTRI WIDTH 14.6 % High 0-14.5 [facility] Comment on above: Performed By: #### C OVID19 724281 #### [facility] [address] [place] [address] WBC (Bld) [#/Vol] 7.1 10*3/uL Normal 4.8-10.8 [facility] Comment on above: Performed By: #### C OVID19 514396 #### [facility] [address] [place] [address] NOVL CORONAVIRUS NAAon 07-12 SARS-CoV-2 (COVID-19) RNA LIV+probe Ql (Unsp spec) Not detected Normal Not Detected [facility] Comment on above: Order Comment: Is th is patient considered a Person Under Investigation? N Result Comment: This nucleic acid amplification test was developed and its performance characteristics determined by [employer]. Nucleic acid amplification tests include RT- PCR [...] this assay. Performed By: #### C OVID19 067046 #### [facility] [address] [place] [address] CHEST AP ONLY (1V)on 022 [id number] Name: CHARLI PORRAS Jagjit Phys: LANCE MULLINS DO : 1950 Age: 71 Sex: M Acct: [id number] Loc: 425 1 Exam Date: 07/11/2021 Status: ADM IN Radiology No: [id number] Unit No: [id number] EXAM# TYPE/EXAM RESULT [id number] RAD/CHEST AP ONLY (1V) SEE REPORT INDICATION: [...] CASSIDY Technologist: MURIEL GAUTAM Transcribed Date/Time: 07/11/2021 (7717) Regional Director Of Admissions: LEEANNE Printed Date/Time: 07/11/2021 (8296) PAGE 1 Signed Report Normal [facility] SARS COVID 19 ANTIGENon 07-02 SARS [...] with COVID-19. NEGATIVE FOR SARS ANTIGEN Normal [facility] Comment on above: Performed By: #### C OVID19 900432 #### [facility] [address] [place] [address] BASIC METABOLIC PANELon 03-0 -2021 Calcium [Mass/Vol] 8.9 mg/dL Normal 8.5-10.5 [facility] Comment on above: Performed By: #### B MP, CBCD #### [facility] [address] [place] [address] Chloride [Moles/Vol] 99 mmol/L Normal 98-107 [facility] Comment on above: Performed By: #### B MP, CBCD #### [facility] [address] [place] [address] CO2 [Moles/Vol] 33 mmol/L High 21-32 [facility] Comment on above: Performed By: #### B MP, CBCD #### [facility] [address] [place] [address] Creatinine [Mass/Vol] 1.19 mg/dL Normal 0.70-1.30 [facility] Comment on above: Performed By: #### B MP, CBCD #### [facility] [address] [place] [address] EST GLOM FILT > 60 Normal [facility] Comment on above: Result Comment: Result [...] Performed By: #### B MP, CBCD #### [facility] [address] [place] [address] ESTIMATED GLOM FILT RATE 60 mL/min/ Normal [facility] Comment on above: Performed By: #### B MP, CBCD #### [facility] [address] [place] [address] Glucose [Mass/Vol] 258 mg/dL High 65-99 [facility] Comment on above: Performed By: #### B MP, CBCD #### [facility] [address] [place] [address] Potassium [Moles/Vol] 3.3 mmol/L Low 3.5-5.1 [facility] Comment on above: Performed By: #### B MP, CBCD #### [facility] [address] [place] [address] Sodium [Moles/Vol] 136 mmol/L Normal 136-145 [facility] Comment on above: Performed By: #### B MP, CBCD #### [facility] [address] [place] [address] Urea nitrogen [Mass/Vol] 19 mg/dL Normal 7-24 [facility] Comment on above: Performed By: #### B MP, CBCD #### [facility] [address] [place] [address] CBC with DIFFERENTIALon 03-0 Basophils (Bld) [#/Vol] 0.1 10*3/uL Normal 0.0-0.1 [facility] Comment on above: Performed By: #### B MP, CBCD #### [facility] [address] [place] [address] Basophils/100 WBC (Bld) 0.8 % Normal 0.0-1.0 [facility] Comment on above: Performed By: #### B MP, CBCD #### [facility] [address] [place] [address] Eosinophils (Bld) [#/Vol] 0.4 10*3/uL Normal 0.0-0.4 [facility] Comment on above: Performed By: #### B MP, CBCD #### [facility] [address] [place] [address] Eosinophils/100 WBC (Bld) 6.5 % High 1.0-4.0 [facility] Comment on above: Performed By: #### B MP, CBCD #### [facility] [address] [place] [address] Hematocrit (Bld) [Volume fraction] 42.4 % Normal 42.0-52.0 [facility] Comment on above: Performed By: #### B MP, CBCD #### [facility] [address] [place] [address] Hemoglobin (Bld) [Mass/Vol] 14.1 g/dL Normal 14.0-18.0 [facility] Comment on above: Performed By: #### B MP, CBCD #### [facility] [address] [place] [address] IG # 0.1 10*3/uL Normal 0.0-0.1 [facility] Comment on above: Performed By: #### B MP, CBCD #### [facility] [address] [place] [address] IG % 1.2 % High 0.0-1.0 [facility] Comment on above: Performed By: #### B MP, CBCD #### [facility] [address] [place] [address] Lymphocytes (Bld) [#/Vol] 1.5 10*3/uL Normal 1.3-4.4 [facility] Comment on above: Performed By: #### B MP, CBCD #### [facility] [address] [place] [address] Lymphocytes/100 WBC (Bld) 23.3 % Low 27.0-41.0 [facility] Comment on above: Performed By: #### B MP, CBCD #### [facility] [address] [place] [address] MCV (RBC) [Entitic vol] 88.9 fL Normal 80.0-94.0 [facility] Comment on above: Performed By: #### B MP, CBCD #### [facility] [address] [place] [address] MEAN CORPUSCULAR HGB 29.6 pg Normal 27.0-31.0 [facility] Comment on above: Performed By: #### B MP, CBCD #### [facility] [address] [place] [address] MEAN CORPUSCULAR HGB CONC 33.3 g/dl Normal 33.0-37.0 [facility] Comment on above: Performed By: #### B MP, CBCD #### [facility] [address] [place] [address] Monocytes (Bld) [#/Vol] 0.4 10*3/uL Normal 0.1-1.0 [facility] Comment on above: Performed By: #### B MP, CBCD #### [facility] [address] [place] [address] Monocytes/100 WBC (Bld) 6.8 % Normal 3.0-9.0 [facility] Comment on above: Performed By: #### B MP, CBCD #### [facility] [address] [place] [address] Neutrophils (Bld) [#/Vol] 4.0 10*3/uL Normal 2.3-7.9 [facility] Comment on above: Performed By: #### B MP, CBCD #### [facility] [address] [place] [address] Neutrophils/100 WBC (Bld) 61.4 % Normal 47.0-73.0 [facility] Comment on above: Performed By: #### B MP, CBCD #### [facility] [address] [place] [address] NUCLEATED RED BLOOD CELL 0.0 10*3/uL Normal 0.0-0.0 [facility] Comment on above: Performed By: #### B MP, CBCD #### [facility] [address] [place] [address] NUCLEATED RED BLOOD CELL 0.0 % Normal 0.0-0.0 [facility] Comment on above: Performed By: #### B MP, CBCD #### [facility] [address] [place] [address] PLATELET COUNT AUTOMATED 120 10*3/uL Low 130-400 [facility] Comment on above: Performed By: #### B MP, CBCD #### [facility] [address] [place] [address] Platelet mean volume (Bld) [Entitic vol] 8.9 fL Low 9.6-12.3 [facility] Comment on above: Performed By: #### B MP, CBCD #### [facility] [address] [place] [address] RBC (Bld) [#/Vol] 4.77 10*6/uL Normal 4.50-5.90 [facility] Comment on above: Performed By: #### B MP, CBCD #### [facility] [address] [place] [address] RED CELL DISTRI WIDTH 14.6 % High 0-14.5 [facility] Comment on above: Performed By: #### B MP, CBCD #### [facility] [address] [place] [address] WBC (Bld) [#/Vol] 6.4 10*3/uL Normal 4.8-10.8 [facility] Comment on above: Performed By: #### B MP, CBCD #### [facility] [address] [place] [address] BASIC METABOLIC PANELon 03-0 Calcium [Mass/Vol] 9.0 mg/dL Normal 8.5-10.5 [facility] Comment on above: Performed By: #### C OVID19 632857 #### [facility] [address] [place] [address] Chloride [Moles/Vol] 98 mmol/L Normal 98-107 [facility] Comment on above: Performed By: #### C OVID19 755318 #### [facility] [address] [place] [address] CO2 [Moles/Vol] 31 mmol/L Normal 21-32 [facility] Comment on above: Performed By: #### C OVID19 641640 #### [facility] [address] [place] [address] Creatinine [Mass/Vol] 1.32 mg/dL High 0.70-1.30 [facility] Comment on above: Performed By: #### C OVID19 971325 #### [facility] [address] [place] [address] EST GLOM FILT > 60 Normal [facility] Comment on above: Result Comment: Result [...] 15 . Performed By: #### C OVID19 533474 #### [facility] [address] [place] [address] ESTIMATED GLOM FILT RATE 53 mL/min/ Low [facility] Comment on above: Performed By: #### C OVID19 392750 #### [facility] [address] [place] [address] Glucose [Mass/Vol] 290 mg/dL High 65-99 [facility] Comment on above: Performed By: #### C OVID19 453241 #### [facility] [address] [place] [address] Potassium [Moles/Vol] 3.2 mmol/L Low 3.5-5.1 [facility] Comment on above: Performed By: #### C OVID19 375044 #### [facility] [address] [place] [address] Sodium [Moles/Vol] 136 mmol/L Normal 136-145 [facility] Comment on above: Performed By: #### C OVID19 893849 #### [facility] [address] [place] [address] Urea nitrogen [Mass/Vol] 19 mg/dL Normal 7-24 [facility] Comment on above: Performed By: #### C OVID19 233798 #### [facility] [address] [place] [address] PROTHROMBIN TIMEon 2 INTERNATIONAL NORM RATIO 2.0 Normal 2.0-3.5 [facility] Comment on above: Result Comment: INR THERAPEUTIC RANGE: GROUP A 2.0-3.0 INR GROUP B 2.5-3.5 INR GROUP A SUGGESTED INDICATIONS: PROPHYLAXIS AND TREATMENT OF VENOUS THROMBOSIS TREATMENT OF PULMONARY EMBOLISM ATRIAL FIBRILLATION GROUP B SUGGESTED INDICATIONS: MECHANICAL PROSTHETIC VALVES Performed By: #### B MP, CBCD #### [facility] [address] [place] [address] PT Coag (PPP) [Time] 19.3 s High 8.9-12.2 [facility] Comment on above: Performed By: #### B MP, CBCD #### [facility] [address] [place] [address] BASIC METABOLIC PANELon 03-0 Calcium [Mass/Vol] 9.1 mg/dL Normal 8.5-10.5 [facility] Comment on above: Performed By: #### B MP, CBCD #### [facility] [address] [place] [address] Chloride [Moles/Vol] 95 mmol/L Low 98-107 [facility] Comment on above: Performed By: #### B MP, CBCD #### [facility] [address] [place] [address] CO2 [Moles/Vol] 30 mmol/L Normal 21-32 [facility] Comment on above: Performed By: #### B GRAY, CBCD #### [facility] [address] [place] [address] Creatinine [Mass/Vol] 1.44 mg/dL High 0.70-1.30 [facility] Comment on above: Performed By: #### B MP, CBCD #### [facility] [address] [place] [address] EST GLOM FILT 58 ml/min [facility] Comment on above: Result Comment: Result [...] Performed By: #### B MP, CBCD #### [facility] [address] [place] [address] ESTIMATED GLOM FILT RATE 48 mL/min/ [facility] Comment on above: Performed By: #### B MP, CBCD #### [facility] [address] [place] [address] Glucose [Mass/Vol] 379 mg/dL High 65-99 [facility] Comment on above: Performed By: #### B MP, CBCD #### [facility] [address] [place] [address] Potassium [Moles/Vol] 3.2 mmol/L Low 3.5-5.1 [facility] Comment on above: Performed By: #### B MP, CBCD #### [facility] [address] [place] [address] Sodium [Moles/Vol] 133 mmol/L Low 136-145 [facility] Comment on above: Performed By: #### B MP, CBCD #### [facility] [address] [place] [address] Urea nitrogen [Mass/Vol] 22 mg/dL Normal 7-24 [facility] Comment on above: Performed By: #### B MP, CBCD #### [facility] [address] [place] [address] BLOOD CULTURE AEROBICon 03-0 BLOOD CULTURE AEROBIC BLOOD CULTURE AERO BIC NO BACTERIAL GROWTH BLOOD CULTURE ANAEROBIC NO BACTERIAL GROWTH Normal [facility] Comment on above: Performed By: #### B MP, CBCD #### [facility] [address] [place] [address] CBC with DIFFERENTIALon 03-0 Basophils (Bld) [#/Vol] 0.1 10*3/uL Normal 0.0-0.1 [facility] Comment on above: Performed By: #### B MP, CBCD #### [facility] [address] [place] [address] Basophils/100 WBC (Bld) 0.8 % Normal 0.0-1.0 [facility] Comment on above: Performed By: #### B MP, CBCD #### [facility] [address] [place] [address] Eosinophils (Bld) [#/Vol] 0.3 10*3/uL Normal 0.0-0.4 [facility] Comment on above: Performed By: #### B MP, CBCD #### [facility] [address] [place] [address] Eosinophils/100 WBC (Bld) 3.8 % Normal 1.0-4.0 [facility] Comment on above: Performed By: #### B MP, CBCD #### [facility] [address] [place] [address] Hematocrit (Bld) [Volume fraction] 40.9 % Low 42.0-52.0 [facility] Comment on above: Performed By: #### B MP, CBCD #### [facility] [address] [place] [address] Hemoglobin (Bld) [Mass/Vol] 13.6 g/dL Low 14.0-18.0 [facility] Comment on above: Performed By: #### B MP, CBCD #### [facility] [address] [place] [address] IG # 0.1 10*3/uL Normal 0.0-0.1 [facility] [facility] Comment on above: Performed By: #### B MP, CBCD #### [facility] [address] [place] [address] 99356 IG % 1.2 % High 0.0-1.0 [facility] Comment on above: Performed By: #### B MP, CBCD #### [facility] [address] [place] [address] Lymphocytes (Bld) [#/Vol] 1.8 10*3/uL Normal 1.3-4.4 [facility] Comment on above: Performed By: #### B MP, CBCD #### [facility] [address] [place] [address] 92624 Lymphocytes/100 WBC (Bld) 23.6 % Low 27.0-41.0 [facility] Comment on above: Performed By: #### B MP, CBCD #### [facility] [address] [place] [address] MCV (RBC) [Entitic vol] 89.9 fL Normal 80.0-94.0 [facility] Comment on above: Performed By: #### B MP, CBCD #### [facility] [address] [place] [address] 99767 MEAN CORPUSCULAR HGB 29.9 pg Normal 27.0-31.0 [facility] Comment on above: Performed By: #### B MP, CBCD #### [facility] [address] [place] [address] 33883 MEAN CORPUSCULAR HGB CONC 33.3 g/dl Normal 33.0-37.0 [facility] Comment on above: Performed By: #### B MP, CBCD #### [facility] [address] [place] [address] 57646 Monocytes (Bld) [#/Vol] 0.5 10*3/uL Normal 0.1-1.0 [facility] Comment on above: Performed By: #### B MP, CBCD #### [facility] [address] [place] [address] 21011 Monocytes/100 WBC (Bld) 7.0 % Normal 3.0-9.0 [facility] Comment on above: Performed By: #### B MP, CBCD #### [facility] [address] [place] [address] 20856 Neutrophils (Bld) [#/Vol] 4.8 10*3/uL Normal 2.3-7.9 [facility] Comment on above: Performed By: #### B MP, CBCD #### [facility] [address] [place] [address] 92694 Neutrophils/100 WBC (Bld) 63.6 % Normal 47.0-73.0 [facility] Comment on above: Performed By: #### B MP, CBCD #### [facility] [address] [place] [address] NUCLEATED RED BLOOD CELL 0.0 10*3/uL Normal 0.0-0.0 [facility] Comment on above: Performed By: #### B MP, CBCD #### [facility] [address] [place] [address] NUCLEATED RED BLOOD CELL 0.0 % Normal 0.0-0.0 [facility] Comment on above: Performed By: #### B MP, CBCD #### [facility] [address] [place] [address] PLATELET COUNT AUTOMATED 138 10*3/uL Normal 130-400 [facility] Comment on above: Performed By: #### B MP, CBCD #### [facility] [address] [place] [address] Platelet mean volume (Bld) [Entitic vol] 9.6 fL Normal 9.6-12.3 [facility] Comment on above: Performed By: #### B MP, CBCD #### [facility] [address] [place] [address] RBC (Bld) [#/Vol] 4.55 10*6/uL Normal 4.50-5.90 [facility] Comment on above: Performed By: #### B MP, CBCD #### [facility] [address] [place] [address] 36779 RED CELL DISTRI WIDTH 14.6 % High 0-14.5 [facility] Comment on above: Performed By: #### B MP, CBCD #### [facility] [address] [place] [address] WBC (Bld) [#/Vol] 7.5 10*3/uL Normal 4.8-10.8 [facility] Comment on above: Performed By: #### B MP, CBCD #### [facility] [address] [place] [address] 21374 PROTHROMBIN TIMEon 2 INTERNATIONAL NORM RATIO 1.7 Low 2.0-3.5 [facility] Comment on above: Result Comment: INR THERAPEUTIC RANGE: GROUP A 2.0-3.0 INR GROUP B 2.5-3.5 INR GROUP A SUGGESTED INDICATIONS: PROPHYLAXIS AND TREATMENT OF VENOUS THROMBOSIS TREATMENT OF PULMONARY EMBOLISM ATRIAL FIBRILLATION GROUP B SUGGESTED INDICATIONS: MECHANICAL PROSTHETIC VALVES Performed By: #### C OVID19 [id number] #### [facility] [address] [place] [address] PT Coag (PPP) [Time] 16.8 s High 8.9-12.2 [facility] Comment on above: Performed By: #### C OVID19 [id number] #### [facility] [address] [place] [address] NOVL CORONAVIRUS NAAon 07-07 SARS-CoV-2 (COVID-19) RNA LIV+probe Ql (Unsp spec) Not detected Normal Not Detected [facility] Comment on above: Order Comment: Is th is patient considered a Person Under Investigation? NADDITIONAL INSTRUCTIONS: FOR SNF Result Comment: This nucleic acid amplification test was developed and its performance characteristics determined by [employer]. Nucleic acid amplification tests include RT- PCR [...] By: #### C BCD, PT, BMP #### [facility] [address] [place] [address] BASIC METABOLIC PANELon 03-0 Calcium [Mass/Vol] 8.6 mg/dL Normal 8.5-10.5 [facility] Comment on above: Performed By: #### C BCNhan, PT, BMP #### [facility] [address] [place] [address] Chloride [Moles/Vol] 102 mmol/L Normal 98-107 [facility] Comment on above: Performed By: #### C BCNhan, PT, BMP #### [facility] [address] [place] [address] CO2 [Moles/Vol] 27 mmol/L Normal 21-32 [facility] Comment on above: Performed By: #### C BCNhan, PT, BMP #### [facility] [address] [place] [address] Creatinine [Mass/Vol] 1.14 mg/dL Normal 0.70-1.30 [facility] Comment on above: Performed By: #### C BCD, PT, BMP #### [facility] [address] [place] [address] EST GLOM FILT > 60 Normal [facility] Comment on above: Result Comment: Result [...] By: #### C BCD, PT, BMP #### [facility] [address] [place] [address] ESTIMATED GLOM FILT RATE > 60 Normal [facility] Comment on above: Performed By: #### C BCD, PT, BMP #### [facility] [address] [place] [address] Glucose [Mass/Vol] 184 mg/dL High 65-99 [facility] Comment on above: Performed By: #### C BCD, PT, BMP #### [facility] [address] [place] [address] Potassium [Moles/Vol] 3.4 mmol/L Low 3.5-5.1 [facility] Comment on above: Performed By: #### C BCNhan, PT, BMP #### [facility] [address] [place] [address] Sodium [Moles/Vol] 135 mmol/L Low 136-145 [facility] Comment on above: Performed By: #### C BCNhan, PT, BMP #### [facility] [address] [place] [address] 18029 Urea nitrogen [Mass/Vol] 16 mg/dL Normal 7-24 [facility] Comment on above: Performed By: #### C BCNhan, PT, BMP #### [facility] [address] [place] [address] 13561 CBC with DIFFERENTIALon 03-0 -2021 Basophils (Bld) [#/Vol] 0.1 10*3/uL Normal 0.0-0.1 [facility] Comment on above: Performed By: #### C BCD, PT, BMP #### [facility] [address] [place] [address] Basophils/100 WBC (Bld) 1.0 % Normal 0.0-1.0 [facility] Comment on above: Performed By: #### C BCNhan, PT, BMP #### [facility] [address] [place] [address] 58275 Eosinophils (Bld) [#/Vol] 0.4 10*3/uL Normal 0.0-0.4 [facility] Comment on above: Performed By: #### C BCD, PT, BMP #### [facility] [address] [place] [address] Eosinophils/100 WBC (Bld) 5.3 % High 1.0-4.0 [facility] Comment on above: Performed By: #### C BCD, PT, BMP #### [facility] [address] [place] [address] Hematocrit (Bld) [Volume fraction] 41.1 % Low 42.0-52.0 [facility] Comment on above: Performed By: #### C BCD, PT, BMP #### [facility] [address] [place] [address] 18302 Hemoglobin (Bld) [Mass/Vol] 13.5 g/dL Low 14.0-18.0 [facility] Comment on above: Performed By: #### C BCD, PT, BMP #### [facility] [address] [place] [address] 90978 IG # 0.1 10*3/uL Normal 0.0-0.1 [facility] Comment on above: Performed By: #### C BCD, PT, BMP #### [facility] [address] [place] [address] 25546 IG % 1.3 % High 0.0-1.0 [facility] Comment on above: Performed By: #### C BCD, PT, BMP #### [facility] [address] [place] [address] 48065 Lymphocytes (Bld) [#/Vol] 1.7 10*3/uL Normal 1.3-4.4 [facility] Comment on above: Performed By: #### C BCD, PT, BMP #### [facility] [address] [place] [address] 50355 Lymphocytes/100 WBC (Bld) 23.5 % Low 27.0-41.0 [facility] Comment on above: Performed By: #### C BCD, PT, BMP #### [facility] [address] [place] [address] 03175 MCV (RBC) [Entitic vol] 91.3 fL Normal 80.0-94.0 [facility] Comment on above: Performed By: #### C BCNhan, PT, BMP #### [facility] [address] [place] [address] 14930 MEAN CORPUSCULAR HGB 30.0 pg Normal 27.0-31.0 [facility] Comment on above: Performed By: #### C BCNhan, PT, BMP #### [facility] [address] [place] [address] 74213 MEAN CORPUSCULAR HGB CONC 32.8 g/dl Low 33.0-37.0 [facility] Comment on above: Performed By: #### C BCNhan, PT, BMP #### [facility] [address] [place] [address] 25783 Monocytes (Bld) [#/Vol] 0.6 10*3/uL Normal 0.1-1.0 [facility] Comment on above: Performed By: #### C BCD, PT, BMP #### [facility] [address] [place] [address] 93442 Monocytes/100 WBC (Bld) 8.4 % Normal 3.0-9.0 [facility] Comment on above: Performed By: #### C BCNhan, PT, BMP #### [facility] [address] [place] [address] 86182 Neutrophils (Bld) [#/Vol] 4.3 10*3/uL Normal 2.3-7.9 [facility] Comment on above: Performed By: #### C BCD, PT, BMP #### [facility] [address] [place] [address] 95933 Neutrophils/100 WBC (Bld) 60.5 % Normal 47.0-73.0 [facility] Comment on above: Performed By: #### C BCD, PT, BMP #### [facility] [address] [place] [address] 23469 NUCLEATED RED BLOOD CELL 0.0 10*3/uL Normal 0.0-0.0 [facility] Comment on above: Performed By: #### C BCNhan, PT, BMP #### [facility] [address] [place] [address] 67076 NUCLEATED RED BLOOD CELL 0.0 % Normal 0.0-0.0 [facility] Comment on above: Performed By: #### Jagjit BCNhan, PT, BMP #### [facility] [address] [place] [address] 99261 PLATELET COUNT AUTOMATED 138 10*3/uL Normal 130-400 [facility] Comment on above: Performed By: #### C BCNhan, PT, BMP #### [facility] [address] [place] [address] 41888 Platelet mean volume (Bld) [Entitic vol] 9.1 fL Low 9.6-12.3 [facility] Comment on above: Performed By: #### Jagjit PEREZ, PT, BMP #### [facility] [address] [place] [address] 65416 RBC (Bld) [#/Vol] 4.50 10*6/uL Normal 4.50-5.90 [facility] Comment on above: Performed By: #### C BCNhan, PT, BMP #### [facility] [address] [place] [address] 27373 RED CELL DISTRI WIDTH 15.0 % High 0-14.5 [facility] Comment on above: Performed By: #### C BCD, PT, BMP #### [facility] [address] [place] [address] 73964 WBC (Bld) [#/Vol] 7.1 10*3/uL Normal 4.8-10.8 [facility] Comment on above: Performed By: #### C BCD, PT, BMP #### [facility] [address] [place] [address] 776[address] MAGNESIUMon 07-05-2021 Magnesium [Mass/Vol] 1.9 mg/dL Normal 1.5-2.1 [facility] Comment on above: Performed By: #### C BCD, PT, BMP #### [facility] [address] [place] [address] PROTHROMBIN TIMEon 2 INTERNATIONAL NORM RATIO 1.3 Low 2.0-3.5 [facility] Comment on above: Result Comment: INR THERAPEUTIC RANGE: GROUP A 2.0-3.0 INR GROUP B 2.5-3.5 INR GROUP A SUGGESTED INDICATIONS: PROPHYLAXIS AND TREATMENT OF VENOUS THROMBOSIS TREATMENT OF PULMONARY EMBOLISM ATRIAL FIBRILLATION GROUP B SUGGESTED INDICATIONS: MECHANICAL PROSTHETIC VALVES Performed By: #### C BCD, PT, BMP #### [facility] [address] [place] [address] PT Coag (PPP) [Time] 12.6 s High 8.9-12.2 [facility] Comment on above: Performed By: #### C BCD, PT, BMP #### [facility] [address] [place] [address] ALBUMIN ([facility])on 07-05-19 22 Albumin [Mass/Vol] 3.5 g/dL Abnormal 3.7-4.7 [facility] Comment on above: Result Comment: Perf ormed at: CB - [facility] [address] [id number] Stacker Operator: Luis Alfredo Gutierres PhD, Phone: [phone] Performed By: #### C OVID19 [id number] #### [facility] [address] [place] [id number] BASIC METABOLIC PANELon Calcium [Mass/Vol] 8.6 mg/dL Normal 8.5-10.5 [facility] Comment on above: Performed By: #### C BCD, PT, BMP #### [facility] [address] [place] [address] Chloride [Moles/Vol] 104 mmol/L Normal 98-107 [facility] Comment on above: Performed By: #### C BCD, PT, BMP #### [facility] [address] [place] [address] CO2 [Moles/Vol] 28 mmol/L Normal 21-32 [facility] Comment on above: Performed By: #### C CHRIS PT, BMP #### [facility] [address] [place] [address] Creatinine [Mass/Vol] 1.22 mg/dL Normal 0.70-1.30 [facility] Comment on above: Performed By: #### C CHRIS, PT, BMP #### [facility] [address] [place] [address] EST GLOM FILT > 60 Normal [facility] Comment on above: Result Comment: Result [...] By: #### C CHRIS, PT, BMP #### [facility] [address] [place] [address] ESTIMATED GLOM FILT RATE 58 mL/min/ Low [facility] Comment on above: Performed By: #### C CHRIS, PT, BMP #### [facility] [address] [place] [address] Glucose [Mass/Vol] 169 mg/dL High 65-99 [facility] Comment on above: Performed By: #### C CHRIS, PT, BMP #### [facility] [address] [place] [address] Potassium [Moles/Vol] 3.4 mmol/L Low 3.5-5.1 [facility] Comment on above: Performed By: #### C CHRIS, PT, BMP #### [facility] [address] [place] [address] Sodium [Moles/Vol] 138 mmol/L Normal 136-145 [facility] Comment on above: Performed By: #### C BCD, PT, BMP #### [facility] [address] [place] [address] 49556 Urea nitrogen [Mass/Vol] 17 mg/dL Normal 7-24 [facility] Comment on above: Performed By: #### C BCD, PT, BMP #### [facility] [address] [place] [address] 24026 CBC with DIFFERENTIALon 03-0 -2021 Basophils (Bld) [#/Vol] 0.1 10*3/uL Normal 0.0-0.1 [facility] Comment on above: Performed By: #### C BCD, PT, BMP #### [facility] [address] [place] [address] 84346 Basophils/100 WBC (Bld) 0.8 % Normal 0.0-1.0 [facility] Comment on above: Performed By: #### C BCD, PT, BMP #### [facility] [address] [place] [address] 92691 Eosinophils (Bld) [#/Vol] 0.3 10*3/uL Normal 0.0-0.4 [facility] Comment on above: Performed By: #### C BCD, PT, BMP #### [facility] [address] [place] [address] 89225 Eosinophils/100 WBC (Bld) 3.8 % Normal 1.0-4.0 [facility] Comment on above: Performed By: #### C BCD, PT, BMP #### [facility] [address] [place] [address] 76019 Hematocrit (Bld) [Volume fraction] 41.4 % Low 42.0-52.0 [facility] Comment on above: Performed By: #### C BCD, PT, BMP #### [facility] [address] [place] [address] Hemoglobin (Bld) [Mass/Vol] 13.6 g/dL Low 14.0-18.0 [facility] Comment on above: Performed By: #### C BCD, PT, BMP #### [facility] [address] [place] [address] IG # 0.1 10*3/uL Normal 0.0-0.1 [facility] Comment on above: Performed By: #### C BCD, PT, BMP #### [facility] [address] [place] [address] 84423 IG % 1.2 % High 0.0-1.0 [facility] Comment on above: Performed By: #### C BCD, PT, BMP #### [facility] [address] [place] [address] 48431 Lymphocytes (Bld) [#/Vol] 1.7 10*3/uL Normal 1.3-4.4 [facility] Comment on above: Performed By: #### C BCD, PT, BMP #### [facility] [address] [place] [address] 14685 Lymphocytes/100 WBC (Bld) 25.2 % Low 27.0-41.0 [facility] Comment on above: Performed By: #### C BCD, PT, BMP #### [facility] [address] [place] [address] 97207 MCV (RBC) [Entitic vol] 89.4 fL Normal 80.0-94.0 [facility] Comment on above: Performed By: #### C BCD, PT, BMP #### [facility] [address] [place] [address] 46964 MEAN CORPUSCULAR HGB 29.4 pg Normal 27.0-31.0 [facility] Comment on above: Performed By: #### C BCD, PT, BMP #### [facility] [address] [place] [address] 77014 MEAN CORPUSCULAR HGB CONC 32.9 g/dl Low 33.0-37.0 [facility] Comment on above: Performed By: #### C BCD, PT, BMP #### [facility] [address] [place] [address] Monocytes (Bld) [#/Vol] 0.6 10*3/uL Normal 0.1-1.0 [facility] Comment on above: Performed By: #### C BCD, PT, BMP #### [facility] [address] [place] [address] Monocytes/100 WBC (Bld) 9.2 % High 3.0-9.0 [facility] Comment on above: Performed By: #### C BCD, PT, BMP #### [facility] [address] [place] [address] 93531 Neutrophils (Bld) [#/Vol] 3.9 10*3/uL Normal 2.3-7.9 [facility] Comment on above: Performed By: #### C BCD, PT, BMP #### [facility] [address] [place] [address] Neutrophils/100 WBC (Bld) 59.8 % Normal 47.0-73.0 [facility] Comment on above: Performed By: #### C BCD, PT, BMP #### [facility] [address] [place] [address] NUCLEATED RED BLOOD CELL 0.0 10*3/uL Normal 0.0-0.0 [facility] Comment on above: Performed By: #### C BCD, PT, BMP #### [facility] [address] [place] [address] NUCLEATED RED BLOOD CELL 0.0 % Normal 0.0-0.0 [facility] Comment on above: Performed By: #### C BCD, PT, BMP #### [facility] [address] [place] [address] 26534 PLATELET COUNT AUTOMATED 142 10*3/uL Normal 130-400 [facility] Comment on above: Performed By: #### C BCD, PT, BMP #### [facility] [address] [place] [address] 27012 Platelet mean volume (Bld) [Entitic vol] 9.2 fL Low 9.6-12.3 [facility] Comment on above: Performed By: #### C BCNhan, PT, BMP #### [facility] [address] [place] [address] RBC (Bld) [#/Vol] 4.63 10*6/uL Normal 4.50-5.90 [facility] Comment on above: Performed By: #### C BCNhan, PT, BMP #### [facility] [address] [place] [address] RED CELL DISTRI WIDTH 14.9 % High 0-14.5 [facility] Comment on above: Performed By: #### C BCNhan, PT, BMP #### [facility] [address] [place] [address] WBC (Bld) [#/Vol] 6.6 10*3/uL Normal 4.8-10.8 [facility] Comment on above: Performed By: #### C BCNhan, PT, BMP #### [facility] [address] [place] [address] 60612 GRAM STAINon 07-04-2021 Microscopic observation Gram stain Nom (Unsp spec) GRAM STAIN FEW WHITE BLOOD CELLS FEW GRAM POSITIVE COCCI IN PAIRS WOUND CULTURE SKIN DARYN:PROBABLE CONTAMINATE Normal [facility] Comment on above: Performed By: #### C BCNhan, PT, BMP #### [facility] [address] [place] [address] OPERATIVE NOTEon 07-04-2021 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 [place], [place] OPERATIVE NOTE NAME: CHARLI PORRAS Jagjit UNIT #: [id number] ROOM: [facility] DOCTOR: BLAINE GUZMÁN DPM BIRTHDATE: [birth year] DOS: 07/04/2021 IN-HOUSE SURGICAL OPERATIVE REPORT PREOPERATIVE DIAGNOSIS: Osteomyelitis, fourth right toe. POSTOPERATIVE DIAGNOSIS: Osteomyelitis, fourth right toe. 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 ANESTHESIA: LMAC. ESTIMATED BLOOD LOSS: 5 mL TOURNIQUET: None. SURGEON: Blaine Guzmán DPM. PICK PULLING MACHINE OPERATOR: Luis Mckeon DPM. DRAINS: None. PACKING: [...] later today and tomorrow by the resident consultant internship. BLAINE GUZMÁN DPM [place], [place] OPERATIVE NOTE NAME: CHARLI PORRAS UNIT #: [id number] ROOM: 425 DOCTOR: BLAINE GUZMÁN DPM BIRTHDATE: [birth year] JOSE/YESENIA TID: [id number] CM:OPRECORD:OPERATIVE NOTE 1324 BLAINE GUZMÁN DPM 07/04/21 1428 interface Normal [facility] POST OPERATIVE PROGRESS NOTE on 07-04-2021 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 [place], [place] POST OPERATIVE PROGRESS NOTE NAME: CHARLI PORRAS UNIT #: [id number] STATUS: ADM IN SURGEON: RADU ANAND DPM [...] Anesthesia: MAC CM:POSTOP DICT: RADU ANAND DPM 2218-2727 [facility] 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 [place], [place] POST OPERATIVE PROGRESS NOTE NAME: CHARLI PORRAS UNIT #: [id number] STATUS: ADM IN SURGEON: BLAINE GUZMÁN DPM ROOM: 425 DATE: 07/04/21 ATTENDING: EHRIBERTO CHRISTIANSEN DO DATE OF : 48 POSTOPERATIVE PROGRESS NOTE BRIEF OPERATIVE NOTE Preoperative Diagnosis: osteomyelitis 4th right toe Postoperative Diagnosis: same pending pathology Procedure/Surgery: amputation 4th right toe at the MPJ Estimated Blood Loss: 5cc Specimens: 4th right toe Technical Note: Drains: NA Packing: NA Assistants: Luis Anand DPM Anesthesia: LMAC at 1224 CM:POSTOP DICT: BLAINE GUZMÁN DPM Electronically Signed 07/04/21 1224 [id number] Normal [facility] PROTHROMBIN TIMEon 2 INTERNATIONAL NORM RATIO 1.6 Low 2.0-3.5 [facility] Comment on above: Result Comment: INR THERAPEUTIC RANGE: GROUP A 2.0-3.0 INR GROUP B 2.5-3.5 INR GROUP A SUGGESTED INDICATIONS: PROPHYLAXIS AND TREATMENT OF VENOUS THROMBOSIS TREATMENT OF PULMONARY EMBOLISM ATRIAL FIBRILLATION GROUP B SUGGESTED INDICATIONS: MECHANICAL PROSTHETIC VALVES Performed By: #### C BCD, PT, BMP #### [facility] [address] [place] [address] 06855 PT Coag (PPP) [Time] 15.9 s High 8.9-12.2 [facility] Comment on above: Performed By: #### C BCD, PT, BMP #### [facility] [address] [place] [address] 00921 TOEon 07-04-2021 TOE - -------- RUN DATE: 07/15/21 [facility] LIVE PAGE 1 RUN TIME: 1509 Specimen Inquiry RUN USER: INTERFACE -------- PATIENT: CHARLI PORRAS LOC: 4E U #: [id number] AGE/SX: 71/M ROOM: [facility] RE07/02/[address]: HERIBERTO CHRISTIANSEN DO : [birth year] BED: 1 DIS: 07/12/21 STATUS: DIS IN TLOC: -------- SPEC #: [id number] RECD: 07/05/21 STATUS: OPAL CURRY #: [id number] ERIC: 07/04/21- SUBM DR: ZARINA AUGUSTIN,BLAINE Cee ENTERED: 07/05/21 SP TYPE: TOE OTHR DR: KULDIP MARCOS,HERIBERTO CASSIDY,ERICKA LAGUNA ORDERED: [facility], LEVEL 3 ([id number]), SURGICAL SPEC COMMENTS: REFERRING MEDICAL DOCTOR: MARCO [...] is deformed. The skin is peeling off. Recovery Operator Helper sections submitted in two cassettes. SURGICAL PROCEDURE: AMPUTATION RIGHT FOURTH TOE CONTINUED ON NEXT PAGE -------- RUN DATE: 07/15/21 [facility] LIVE PAGE 2 RUN TIME: 1509 Specimen Inquiry RUN USER: INTERFACE -------- SPEC #: [id number] PATIENT: CHARLI PORRAS #[id number] (Continued) -------- TISSUE SUBMITTED RIGHT FOURTH TOE -------- Signed TESS ADRIAN 07/10/21 1449 -------- END OF REPORT Normal [facility] Comment on above: Order Comment: REFER RING MEDICAL DOCTOR: KINDRA: MARCO# OF CONTAINERS 1TISSUE SUBMITTED: RIGHT FOURTH TOEPROCEDURE: AMPUTATION RIGHT FOURTH TOEPRELIMINARY DIAGNOSIS: OSTEOMYLITIS RIGHT FOOT Performed By: #### C BCD, PT, BMP #### [facility] [address] [place] [address] US ARTERIAL LOWER EXT BILATo n 07-04-2021 USARTLEB Name: CHARLI PORRAS Phys: RADU ANAND DPM : 1950 Age: 71 Sex: M Acct: [id number] Loc: 425 1 Exam Date: 07/03/2021 Status: ADM IN Radiology No: [id number] Unit No: [id number] EXAM# TYPE/EXAM RESULT [id number] US/US ARTERIAL LOWER EXT BILAT SEE REPORT [...] follows: Right EIA: 163 cm/s, triphasic Right PRINCIPAL SYSTEMS ENGINEER: 145 cm/s, triphasic Right Proximal SFA: 127 cm/s, triphasic Right Mid SFA: 129 cm/s, triphasic Right Distal SFA: 79 cm/s, triphasic Right Popliteal: 134 cm/s, triphasic Right SAMPLE SAWYER: 182 cm/s, biphasic Right KENN: 162 cm/s, biphasic Right Peroneal: no images obtained The peak velocities and waveforms in the left lower extremity are as follows: Left EIA: 167 cm/s, triphasic Left PRINCIPAL SYSTEMS ENGINEER: 168/ cm/s, triphasic Left Proximal SFA: 157 cm/s, triphasic Left Mid SFA: 93 cm/s, triphasic Left Distal SFA: 99 cm/s, triphasic Left Popliteal: 102 cm/s, triphasic Left SAMPLE SAWYER: 191 cm/s, triphasic Left KENN: 113 cm/s, biphasic Left dorsalis pedis: 71 cm/s, monophasic PAGE 1 Signed Report (CONTINUED) Name: CHARLI PORRAS Phys: RADU ANAND DPM : 1950 Age: 71 Sex: M Acct: [id number] Loc: 425 1 Exam Date: 07/03/2021 Status: ADM IN Radiology No: [id number] Unit No: [id number] EXAM# TYPE/EXAM RESULT [id number] US/US ARTERIAL LOWER EXT BILAT SEE REPORT IMPRESSION: Limited evaluation. No evidence of significant arterial disease suggested. Signed by Lizz Oscar MD REPORT SIGNED IN OTHER VENDOR SYSTEM 07/04/2021 Reported By: LIZZ OSCAR MD CC: ERICKA CASSIDY Technologist: ZULEMA WORTHY Transcribed Date/Time: 07/04/2021 (916) Regional Director Of Admissions: LEEANNE Printed Date/Time: 07/04/2021 (916) PAGE 2 Signed Report Normal [facility] ACT PARTIAL THROMBO TIMEon 0 07-03-2021 ACT PARTIAL THROMBO TIME 46.1 SECONDS High 20.0-32.1 [facility] Comment on above: Result Comment: APTT THERAPEUTIC RANGE = 51.3 TO 62.7 SECONDS Performed By: #### C BCD, PT, BMP #### [facility] [address] [place] [address] ALBUMIN ([facility])on 07-04-19 Albumin [Mass/Vol] 3.8 g/dL Normal 3.7-4.7 [facility] Comment on above: Result Comment: Perf ormed at: CB - [facility] [address] [id number] Stacker Operator: Luis Alfredo Gutierres PhD, Phone: [phone] Performed By: #### B MP, CBCD #### [facility] [address] [place] [address] CBC with DIFFERENTIALon Basophils (Bld) [#/Vol] 0.0 10*3/uL Normal 0.0-0.1 [facility] Comment on above: Performed By: #### C BCD, PT, BMP #### [facility] [address] [place] [address] Basophils/100 WBC (Bld) 0.6 % Normal 0.0-1.0 [facility] Comment on above: Performed By: #### C BCD, PT, BMP #### [facility] [address] [place] [address] Eosinophils (Bld) [#/Vol] 0.2 10*3/uL Normal 0.0-0.4 [facility] Comment on above: Performed By: #### C BCD, PT, BMP #### [facility] [address] [place] [address] Eosinophils/100 WBC (Bld) 2.8 % Normal 1.0-4.0 [facility] Comment on above: Performed By: #### C BCD, PT, BMP #### [facility] [address] [place] [address]956 Hematocrit (Bld) [Volume fraction] 42.6 % Normal 42.0-52.0 [facility] Comment on above: Performed By: #### C BCD, PT, BMP #### [facility] [address] [place] [address] Hemoglobin (Bld) [Mass/Vol] 14.1 g/dL Normal 14.0-18.0 [facility] Comment on above: Performed By: #### C BCD, PT, BMP #### [facility] [address] [place] [address] IG # 0.1 10*3/uL Normal 0.0-0.1 [facility] Comment on above: Performed By: #### C BCD, PT, BMP #### [facility] [address] [place] [address] IG % 1.3 % High 0.0-1.0 [facility] Comment on above: Performed By: #### C BCD, PT, BMP #### [facility] [address] [place] [address] Lymphocytes (Bld) [#/Vol] 1.4 10*3/uL Normal 1.3-4.4 [facility] Comment on above: Performed By: #### C BCD, PT, BMP #### [facility] [address] [place] [address] 239[address] Lymphocytes/100 WBC (Bld) 22.2 % Low 27.0-41.0 [facility] Comment on above: Performed By: #### C BCD, PT, BMP #### [facility] [address] [place] [address] 31460 MCV (RBC) [Entitic vol] 89.7 fL Normal 80.0-94.0 [facility] Comment on above: Performed By: #### C BCD, PT, BMP #### [facility] [address] [place] [address]6310 MEAN CORPUSCULAR HGB 29.7 pg Normal 27.0-31.0 [facility] Comment on above: Performed By: #### C BCD, PT, BMP #### [facility] [address] [place] [address] 19811 MEAN CORPUSCULAR HGB CONC 33.1 g/dl Normal 33.0-37.0 [facility] Comment on above: Performed By: #### C BCD, PT, BMP #### [facility] [address] [place] [address]476 Monocytes (Bld) [#/Vol] 0.6 10*3/uL Normal 0.1-1.0 [facility] Comment on above: Performed By: #### C BCD, PT, BMP #### [facility] [address] [place] [address] 00932 Monocytes/100 WBC (Bld) 9.9 % High 3.0-9.0 [facility] Comment on above: Performed By: #### C BCD, PT, BMP #### [facility] [address] [place] [address] Neutrophils (Bld) [#/Vol] 4.0 10*3/uL Normal 2.3-7.9 [facility] Comment on above: Performed By: #### C BCD, PT, BMP #### [facility] [address] [place] [address] Neutrophils/100 WBC (Bld) 63.2 % Normal 47.0-73.0 [facility] Comment on above: Performed By: #### C BCD, PT, BMP #### [facility] [address] [place] [address] NUCLEATED RED BLOOD CELL 0.0 10*3/uL Normal 0.0-0.0 [facility] Comment on above: Performed By: #### C BCD, PT, BMP #### [facility] [address] [place] [address] NUCLEATED RED BLOOD CELL 0.0 % Normal 0.0-0.0 [facility] Comment on above: Performed By: #### C BCD, PT, BMP #### [facility] [address] [place] [address] PLATELET COUNT AUTOMATED 146 10*3/uL Normal 130-400 [facility] Comment on above: Performed By: #### C BCD, PT, BMP #### [facility] [address] [place] [address] Platelet mean volume (Bld) [Entitic vol] 9.5 fL Low 9.6-12.3 [facility] Comment on above: Performed By: #### C BCD, PT, BMP #### [facility] [address] [place] [address] RBC (Bld) [#/Vol] 4.75 10*6/uL Normal 4.50-5.90 [facility] Comment on above: Performed By: #### C BCD, PT, BMP #### [facility] [address] [place] [address] RED CELL DISTRI WIDTH 14.7 % High 0-14.5 [facility] Comment on above: Performed By: #### C BCD, PT, BMP #### [facility] [address] [place] [address]852 WBC (Bld) [#/Vol] 6.4 10*3/uL Normal 4.8-10.8 [facility] Comment on above: Performed By: #### C BCD, PT, BMP #### [facility] [address] [place] [address] CHEST AP ONLY (1V)on 022 [id number] Name: PILOLARRYThaliaCHARLI Jagjit Phys: ANMOL MASCORRO DO : 1950 Age: 71 Sex: M Acct: [id number] Loc: 425 1 Exam Date: 07/03/2021 Status: ADM IN Radiology No: [id number] Unit No: [id number] EXAM# TYPE/EXAM RESULT [id number] RAD/CHEST AP ONLY (1V) SEE REPORT INDICATION: [...] CASSIDY Technologist: CRISTINA NICOLE Transcribed Date/Time: 07/03/2021 (0747) Regional Director Of Admissions: LEEANNE Printed Date/Time: 07/03/2021 (7378) PAGE 1 Signed Report Normal [facility] COMPREHENSIVE METABOLIC PANE Nolan 07-03-2021 ALBUMIN. ND Normal [facility] Comment on above: Result Comment: See send out ALBUMIN from [facility]. Performed By: #### C BCD, PT, BMP #### [facility] [address] [place] [address] ALP [Catalytic activity/Vol] 85 U/L Normal 45-117 [facility] Comment on above: Performed By: #### C BCD, PT, BMP #### [facility] [address] [place] [address] ALT [Catalytic activity/Vol] 31 U/L Normal 12-78 [facility] Comment on above: Performed By: #### C BCD, PT, BMP #### [facility] [address] [place] [address] AST [Catalytic activity/Vol] 23 U/L Normal 3-35 [facility] Comment on above: Performed By: #### C BCD, PT, BMP #### [facility] [address] [place] [address] Bilirubin [Mass/Vol] 0.7 mg/dL Normal 0.2-1.0 [facility] Comment on above: Performed By: #### C BCD, PT, BMP #### [facility] [address] [place] [address] Calcium [Mass/Vol] 8.7 mg/dL Normal 8.5-10.5 [facility] Comment on above: Performed By: #### C BCD, PT, BMP #### [facility] [address] [place] [address] Chloride [Moles/Vol] 103 mmol/L Normal 98-107 [facility] Comment on above: Performed By: #### C BCD, PT, BMP #### [facility] [address] [place] [address] CO2 [Moles/Vol] 27 mmol/L Normal 21-32 [facility] Comment on above: Performed By: #### C BCD, PT, BMP #### [facility] [address] [place] [address] Creatinine [Mass/Vol] 1.16 mg/dL Normal 0.70-1.30 [facility] Comment on above: Performed By: #### C BCD, PT, BMP #### [facility] [address] [place] [address] EST GLOM FILT > 60 Normal [facility] Comment on above: Result Comment: Result [...] By: #### C BCNhan, PT, BMP #### [facility] [address] [place] [address] ESTIMATED GLOM FILT RATE > 60 Normal [facility] Comment on above: Performed By: #### C BCNhan, PT, BMP #### [facility] [address] [place] [address] Glucose [Mass/Vol] 171 mg/dL High 65-99 [facility] Comment on above: Performed By: #### C BCD, PT, BMP #### [facility] [address] [place] [address] Potassium [Moles/Vol] 3.4 mmol/L Low 3.5-5.1 [facility] Comment on above: Performed By: #### C BCD, PT, BMP #### [facility] [address] [place] [address] Protein [Mass/Vol] 7.0 g/dL Normal 6.4-8.2 [facility] Comment on above: Performed By: #### C BCD, PT, BMP #### [facility] [address] [place] [address] Sodium [Moles/Vol] 136 mmol/L Normal 136-145 [facility] Comment on above: Performed By: #### C BCD, PT, BMP #### [facility] [address] [place] [address] Urea nitrogen [Mass/Vol] 14 mg/dL Normal 7-24 [facility] Comment on above: Performed By: #### C BCNhan, PT, BMP #### [facility] [address] [place] [address] CONTRAST/ECHO COMPLETEon CRDECCON Name: PILOLARRYThaliaCHARLI Phys: GREGG BONNER DO : 1950 Age: 71 Sex: M Acct: [id number] Loc: 425 1 Exam Date: 07/03/2021 Status: ADM IN Radiology No: [id number] Unit No: [id number] EXAM# TYPE/EXAM RESULT [id number] ECHO/CONTRAST/ECHO COMPLETE SEE REPORT AN ADDENDUM IS [...] : 1950 Age: 71 Sex: M Acct: [id number] Loc: 425 1 Exam Date: 07/03/2021 Status: ADM IN Radiology No: [id number] Unit No: [id number] EXAM# TYPE/EXAM RESULT [id number] ECHO/CONTRAST/ECHO COMPLETE SEE REPORT AN ADDENDUM IS [...] : 1950 Age: 71 Sex: M Acct: [id number] Loc: 425 1 Exam Date: 07/03/2021 Status: ADM IN Radiology No: [id number] Unit No: [id number] EXAM# TYPE/EXAM RESULT [id number] ECHO/CONTRAST/ECHO COMPLETE SEE REPORT AN ADDENDUM IS [...] : 1950 Age: 71 Sex: M Acct: [id number] Loc: 425 1 Exam Date: 07/03/2021 Status: ADM IN Radiology No: [id number] Unit No: [id number] EXAM# TYPE/EXAM RESULT [id number] ECHO/CONTRAST/ECHO COMPLETE SEE REPORT AN ADDENDUM IS [...] : 1950 Age: 71 Sex: M Acct: [id number] Loc: 425 1 Exam Date: 07/03/2021 Status: ADM IN Radiology No: [id number] Unit No: [id number] (more content not included)... Normal [facility] FOLIC ACIDon 07-03-2021 FOLIC ACID 23.06 ng/mL Normal >5.38 [facility] Comment on above: Result Comment: 0.35 - 3.7 ng/mL - Folate Deficiency 3.38 - 5.38 ng/mL - Indeterminate > 5.38 ng/mL - Normal Performed By: #### C CHRIS PT, BMP #### [facility] [address] [place] [address] 16098 FREE T4on 07-03-2021 Free T4 [Mass/Vol] 0.85 ng/dL Normal 0.76-1.46 [facility] Comment on above: Performed By: #### C MAGI PEREZ, BMP #### [facility] [address] [place] [address] 20078 [id number] 07-03-2021 ESTIMATED AVERAGE GLUCOSE 226 Normal [facility] Comment on above: Performed By: #### C CHRIS PT, BMP #### [facility] [address] [place] [address]1849 HbA1c (Bld) [Mass fraction] 9.5 % High 4.8-5.6 [facility] Comment on above: Result Comment: Standarization of method based on National Glycohemoglobin Standardization Program (NGSP). HEMOGLOBIN A1c(%) DEGREE of GLUCOSE CONTROL 5.7-6.4% Prediabetes range >6.4% Diagnosis of Diabetes <7% Glycemic control for adults with Diabetes Performed By: #### C CHRIS, PT, BMP #### [facility] [address] [place] [address] 19767 LIPID PANELon 07-03-2021 Cholesterol [Mass/Vol] 102 mg/dL Normal <200 [facility] Comment on above: Performed By: #### C BCD, PT, BMP #### [facility] [address] [place] [address] Cholesterol in HDL [Mass/Vol] 34 mg/dL Low 40-60 [facility] Comment on above: Performed By: #### C BCD, PT, BMP #### [facility] [address] [place] [address] Cholesterol in LDL [Mass/Vol] 20 mg/dL Normal 9-159 [facility] Comment on above: Performed By: #### C BCD, PT, BMP #### [facility] [address] [place] [address] Triglyceride [Mass/Vol] 241 mg/dL High <150 [facility] Comment on above: Result Comment: TRIGLYCERIDE RISK ASSESSMENT: 150-199 mg/dl BORDERLINE HIGH >200 mg//dl HIGH . Performed By: #### C BCD, PT, BMP #### [facility] [address] [place] [address] VLDL CHOLESTEROL 48 mg/dL High 6-40 [facility] Comment on above: Performed By: #### C BCD, PT, BMP #### [facility] [address] [place] [address] MAGNESIUMon 07-03-2021 Magnesium [Mass/Vol] 1.8 mg/dL Normal 1.5-2.1 [facility] Comment on above: Performed By: #### C BCD, PT, BMP #### [facility] [address] [place] [address] PHOSPHOROUSon 07-03-2021 PHOSPHOROUS 3.7 mg/dL Normal 2.5-4.9 [facility] Comment on above: Performed By: #### C BCD, PT, BMP #### [facility] [address] [place] [address] PROTHROMBIN TIMEon 2 INTERNATIONAL NORM RATIO 2.5 Normal 2.0-3.5 [facility] Comment on above: Result Comment: INR THERAPEUTIC RANGE: GROUP A 2.0-3.0 INR GROUP B 2.5-3.5 INR GROUP A SUGGESTED INDICATIONS: PROPHYLAXIS AND TREATMENT OF VENOUS THROMBOSIS TREATMENT OF PULMONARY EMBOLISM ATRIAL FIBRILLATION GROUP B SUGGESTED INDICATIONS: MECHANICAL PROSTHETIC VALVES Performed By: #### C BCD, PT, BMP #### [facility] [address] [place] [address] PT Coag (PPP) [Time] 24.2 s High 8.9-12.2 [facility] Comment on above: Performed By: #### C BCD, PT, BMP #### [facility] [address] [place] [address] THYROID STIM HORMONE (HS)on 07-03-2021 THYROID STIM HORMONE (HS) 2.660 uIU/ml Normal 0.358-4.75 [facility] Comment on above: Performed By: #### C BCD, PT, BMP #### [facility] [address] [place] [address] VITAMIN B12on 07-03-2021 Cobalamin (Vitamin B12) [Mass/Vol] 528 pg/mL Normal 247-911 [facility] Comment on above: Result Comment: 247 - 911 pg/mL - Normal, Vitamin B12 Sufficiency Performed By: #### C BCD, PT, BMP #### [facility] [address] [place] [address]033 VITAMIN D, 25-HYDROXYon 03-0 VITAMIN D, 25-HYDROXY 25.6 ng/mL Low 30-100 [facility] Comment on above: Result Comment: < 20 ng/mL - Vitamin D Deficiency 20 - 30 ng/mL - Vitamin D Insufficiency 30 - 100 ng/mL - Vitamin D sufficiency > 100 ng/mL - Vitamin D Toxicity Performed By: #### C OVID19 [id number] #### [facility] [address] [place] [address] ACT PARTIAL THROMBO TIMEon 0 07-02-2021 ACT PARTIAL THROMBO TIME 46.4 SECONDS High 20.0-32.1 [facility] Comment on above: Result Comment: APTT THERAPEUTIC RANGE = 51.3 TO 62.7 SECONDS Performed By: #### L ABASE, CMP, PT, CBCD, APTT #### [facility] [address] [place] [address] #### ALB SO #### [facility] [address] [place] [address] C-REACTIVE PROTEINon 03-01-2 022 C-REACTIVE PROTEIN 5.30 MG/DL High 0-0.3 [facility] Comment on above: Result Comment: This method is intended for the detection and evaluation of infection, tissue injury and inflammatory disease. This method is not intended for cardiovascular risk assessment. * Performed By: #### B MP, CBCD #### [facility] [address] [place] [address] CBC with DIFFERENTIALon 03-0 1-2021 Basophils (Bld) [#/Vol] 0.0 10*3/uL Normal 0.0-0.1 [facility] Comment on above: Performed By: #### L ABASE, CMP, PT, CBCD, APTT #### [facility] [address] [place] [address] #### ALB SO #### [facility] [address] [place] [address] Basophils/100 WBC (Bld) 0.6 % Normal 0.0-1.0 [facility] Comment on above: Performed By: #### L ABASE, CMP, PT, CBCD, APTT #### [facility] [address] [place] [address] #### ALB SO #### [facility] [address] [place] [address] Eosinophils (Bld) [#/Vol] 0.2 10*3/uL Normal 0.0-0.4 [facility] Comment on above: Performed By: #### L ABASE, CMP, PT, CBCD, APTT #### [facility] [address] [place] [address] #### ALB SO #### [facility] [address] [place] [address] Eosinophils/100 WBC (Bld) 2.3 % Normal 1.0-4.0 [facility] Comment on above: Performed By: #### L ABASE, CMP, PT, CBCD, APTT #### [facility] [address] [place] [address] #### ALB SO #### [facility] [address] [place] [address] Hematocrit (Bld) [Volume fraction] 44.1 % Normal 42.0-52.0 [facility] Comment on above: Performed By: #### L ABASE, CMP, PT, CBCD, APTT #### [facility] [address] [place] [address] #### ALB SO #### [facility] [address] [place] [address] Hemoglobin (Bld) [Mass/Vol] 14.6 g/dL Normal 14.0-18.0 [facility] Comment on above: Performed By: #### L ABASE, CMP, PT, CBCD, APTT #### [facility] [address] [place] [address] #### ALB SO #### [facility] [address] [place] [address] IG # 0.1 10*3/uL Normal 0.0-0.1 [facility] Comment on above: Performed By: #### L ABASE, CMP, PT, CBCD, APTT #### [facility] [address] [place] [address] #### ALB SO #### [facility] [address] [place] [address] IG % 1.6 % High 0.0-1.0 [facility] Comment on above: Performed By: #### L ABASE, CMP, PT, CBCD, APTT #### [facility] [address] [place] [address] #### ALB SO #### [facility] [address] [place] [address] Lymphocytes (Bld) [#/Vol] 1.2 10*3/uL Low 1.3-4.4 [facility] Comment on above: Performed By: #### L ABASE, CMP, PT, CBCD, APTT #### [facility] [address] [place] [address] #### ALB SO #### [facility] [address] [place] [address] Lymphocytes/100 WBC (Bld) 17.0 % Low 27.0-41.0 [facility] Comment on above: Performed By: #### L ABASE, CMP, PT, CBCD, APTT #### [facility] [address] [place] [address] #### ALB SO #### [facility] [address] [place] [address] MCV (RBC) [Entitic vol] 90.9 fL Normal 80.0-94.0 [facility] Comment on above: Performed By: #### L ABASE, CMP, PT, CBCD, APTT #### [facility] [address] [place] [address] #### ALB SO #### [facility] [address] [place] [address] MEAN CORPUSCULAR HGB 30.1 pg Normal 27.0-31.0 [facility] Comment on above: Performed By: #### L ABASE, CMP, PT, CBCD, APTT #### [facility] [address] [place] [address] #### ALB SO #### [facility] [address] [place] [address] MEAN CORPUSCULAR HGB CONC 33.1 g/dl Normal 33.0-37.0 [facility] Comment on above: Performed By: #### L ABASE, CMP, PT, CBCD, APTT #### [facility] [address] [place] [address] #### ALB SO #### [facility] [address] [place] [address] Monocytes (Bld) [#/Vol] 0.5 10*3/uL Normal 0.1-1.0 [facility] Comment on above: Performed By: #### L ABASE, CMP, PT, CBCD, APTT #### [facility] [address] [place] [address] #### ALB SO #### [facility] [address] [place] [address] Monocytes/100 WBC (Bld) 7.5 % Normal 3.0-9.0 [facility] Comment on above: Performed By: #### L ABASE, CMP, PT, CBCD, APTT #### [facility] [address] [place] [address] #### ALB SO #### [facility] [address] [place] [address] Neutrophils (Bld) [#/Vol] 4.8 10*3/uL Normal 2.3-7.9 [facility] Comment on above: Performed By: #### L ABASE, CMP, PT, CBCD, APTT #### [facility] [address] [place] [address] #### ALB SO #### [facility] [address] [place] [address] Neutrophils/100 WBC (Bld) 71.0 % Normal 47.0-73.0 [facility] Comment on above: Performed By: #### L ABASE, CMP, PT, CBCD, APTT #### [facility] [address] [place] [address] #### ALB SO #### [facility] [address] [place] [address] NUCLEATED RED BLOOD CELL 0.0 10*3/uL Normal 0.0-0.0 [facility] Comment on above: Performed By: #### L ABASE, CMP, PT, CBCD, APTT #### [facility] [address] [place] [address] #### ALB SO #### [facility] [address] [place] [address] NUCLEATED RED BLOOD CELL 0.0 % Normal 0.0-0.0 [facility] Comment on above: Performed By: #### L ABASE, CMP, PT, CBCD, APTT #### [facility] [address] [place] [place] [address] #### ALB SO #### [facility] [address] [place] [address] PLATELET COUNT AUTOMATED 120 10*3/uL Low 130-400 [facility] Comment on above: Performed By: #### L ABASE, CMP, PT, CBCD, APTT #### [facility] [address] [place] [address] #### ALB SO #### [facility] [address] Platelet mean volume (Bld) [Entitic vol] 8.9 fL Low 9.6-12.3 [facility] Comment on above: Performed By: #### L ABASE, CMP, PT, CBCD, APTT #### [facility] [address] [place] [address] #### ALB SO #### [facility] [address] [place] [address] RBC (Bld) [#/Vol] 4.85 10*6/uL Normal 4.50-5.90 [facility] Comment on above: Performed By: #### L ABASE, CMP, PT, CBCD, APTT #### [facility] [address] [place] [address] #### ALB SO #### [facility] [address] [place] [address] RED CELL DISTRI WIDTH 15.2 % High 0-14.5 [facility] Comment on above: Performed By: #### L ABASE, CMP, PT, CBCD, APTT #### [facility] [address] [place] [address] #### ALB SO #### [facility] [address] [place] [address] WBC (Bld) [#/Vol] 6.8 10*3/uL Normal 4.8-10.8 [facility] Comment on above: Performed By: #### L ABASE, CMP, PT, CBCD, APTT #### [facility] [address] [place] [address] #### ALB SO #### [facility] [address] [place] [address] COMPREHENSIVE METABOLIC PANE Nolan 07-02-2021 ALBUMIN. ND Normal [facility] Comment on above: Result Comment: See send out ALBUMIN from [facility]. Performed By: #### L ABASE, CMP, PT, CBCD, APTT #### [facility] [address] [place] [address] #### ALB SO #### [facility] [address] [place] [address] ALP [Catalytic activity/Vol] 92 U/L Normal 45-117 [facility] Comment on above: Performed By: #### L ABASE, CMP, PT, CBCD, APTT #### [facility] [address] [place] [address] #### ALB SO #### [facility] [address] [place] [address] ALT [Catalytic activity/Vol] 34 U/L Normal 12-78 [facility] Comment on above: Performed By: #### L ABASE, CMP, PT, CBCD, APTT #### [facility] [address] [place] [address] #### ALB SO #### [facility] [address] [place] [address] AST [Catalytic activity/Vol] 21 U/L Normal 3-35 [facility] Comment on above: Performed By: #### L ABASE, CMP, PT, CBCD, APTT #### [facility] [address] [place] [address] #### ALB SO #### [facility] [address] [place] [address] Bilirubin [Mass/Vol] 0.8 mg/dL Normal 0.2-1.0 [facility] Comment on above: Performed By: #### L ABASE, CMP, PT, CBCD, APTT #### [facility] [address] [place] [address] #### ALB SO #### [facility] [address] [place] [address] Calcium [Mass/Vol] 9.0 mg/dL Normal 8.5-10.5 [facility] Comment on above: Performed By: #### L ABASE, CMP, PT, CBCD, APTT #### [facility] [address] [place] [address] #### ALB SO #### [facility] [address] [place] [address] Chloride [Moles/Vol] 103 mmol/L Normal 98-107 [facility] Comment on above: Performed By: #### L ABASE, CMP, PT, CBCD, APTT #### [facility] [address] [place] [address] #### ALB SO #### [facility] [address] [place] [address] CO2 [Moles/Vol] 27 mmol/L Normal 21-32 [facility] Comment on above: Performed By: #### L ABASE, CMP, PT, CBCD, APTT #### [facility] [address] [place] [address] #### ALB SO #### [facility] [address] [place] [address] Creatinine [Mass/Vol] 1.20 mg/dL Normal 0.70-1.30 [facility] Comment on above: Performed By: #### L ABASE, CMP, PT, CBCD, APTT #### [facility] [address] [place] [address] #### ALB SO #### [facility] [address] [place] [address] EST GLOM FILT > 60 Normal [facility] Comment on above: Result Comment: Result [...] L ABASE, CMP, PT, CBCD, APTT #### [facility] [address] [place] [address] #### ALB SO #### [facility] [address] [place] [address] ESTIMATED GLOM FILT RATE 60 mL/min/ Normal [facility] Comment on above: Performed By: #### L ABASE, CMP, PT, CBCD, APTT #### [facility] [address] [place] [address] #### ALB SO #### [facility] [address] [place] [address] Glucose [Mass/Vol] 198 mg/dL High 65-99 [facility] Comment on above: Performed By: #### L ABASE, CMP, PT, CBCD, APTT #### [facility] [address] [place] [address] #### ALB SO #### [facility] [address] [place] [address] Potassium [Moles/Vol] 3.9 mmol/L Normal 3.5-5.1 [facility] Comment on above: Performed By: #### L ABASE, CMP, PT, CBCD, APTT #### [facility] [address] [place] [address] #### ALB SO #### [facility] [address] [place] [address] Protein [Mass/Vol] 7.4 g/dL Normal 6.4-8.2 [facility] Comment on above: Performed By: #### L ABASE, CMP, PT, CBCD, APTT #### [facility] [address] [place] [address] #### ALB SO #### [facility] [address] [place] [address] Sodium [Moles/Vol] 135 mmol/L Low 136-145 [facility] Comment on above: Performed By: #### L ABASE, CMP, PT, CBCD, APTT #### [facility] [address] [place] [address] #### ALB SO #### [facility] [address] [place] [address] Urea nitrogen [Mass/Vol] 14 mg/dL Normal 7-24 [facility] Comment on above: Performed By: #### L ABASE, CMP, PT, CBCD, APTT #### [facility] [address] [place] [address] #### ALB SO #### [facility] [address] [place] [address] ELECTROCARDIOGRAM REPORTon 0 07-02-2021 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 [place], [place] ELECTROCARDIOGRAM REPORT NAME: CHARLI PORRAS UNIT #: [id number] ROOM: [facility] DOCTOR: NEENA KRUSETEGAN BIRTHDATE: [birth year] [facility] Test Date: 2021-07-02 Test Time: 15:36:52 Pat Name: CHARLI PORRAS Department: Room: 425 Gender: M 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1950 Requested By: CRISS TORRES Order Number: [id number] Reading MD: Tegan Horton MD Measurements Intervals [place] Rate: 74 P: 43 [place]: 169 QRS: -14 QRSD: 161 T: 98 QT: 463 QTc: 514 Interpretive Statements Sinus rhythm Left bundle branch block Electronically Signed On 07-02-2021 15:54:22 PST by Tegan Horton MD CM:EKGRPT:ELECTROCARD IOGRAM REPORT [id number] 1554 CRISS TORRES MD Normal [facility] ESR (Sed Rate)on 07-02-2021 ESR (Bld) [Velocity] 31 mm/h High 0-20 [facility] Comment on above: Performed By: #### B MP, CBCD #### [facility] [address] [place] [address] FOOT RIGHT (MIN 3 V)on 07-02 CRFOOTR Name: CHARLI PORRAS Jagjit Phys: CRISS ESPINO MD : 1950 Age: 71 Sex: M Acct: [id number] Loc: 425 1 Exam Date: 07/02/2021 Status: ADM IN Radiology No: [id number] Unit No: [id number] EXAM# TYPE/EXAM RESULT [id number] EDRAD/FOOT RIGHT (MIN 3 V) SEE REPORT [...] : 1950 Age: 71 Sex: M Acct: [id number] Loc: 425 1 Exam Date: 07/02/2021 Status: ADM IN Radiology No: [id number] Unit No: [id number] EXAM# TYPE/EXAM RESULT [id number] EDRAD/FOOT RIGHT (MIN 3 V) SEE REPORT Signed by Yahaira Christianson MD REPORT SIGNED IN OTHER VENDOR SYSTEM 07/02/2021 Reported By: YAHAIRA CHRISTIANSON CC: ERICKA CASSIDY Technologist: MURIEL GAUTAM Transcribed Date/Time: 07/02/2021 (209) Regional Director Of Admissions: LEEANNE Printed Date/Time: 07/02/2021 (722) PAGE 2 Signed Report Normal [facility] LA>2 RFLX FOLLOW UP AT 2 HRS on 07-02-2021 LA>2 RFLX FOLLOW UP AT 2 HRS 1.8 mmol/L Normal 0.4-2.0 [facility] Comment on above: Performed By: #### C OVID19 [id number] #### [facility] [address] [place] [address] LACTIC ACID BASELINEon 07-02 LACTIC ACID BASELINE 3.1 mmol/L Abnormal 0.4-2.0 [facility] Comment on above: Result Comment: VALUE IS A CRITICAL RESULT VERIFIED BY REPEAT ANALYSIS ON SAME SPECIMEN RESULT CALLED TO: TANISHA ANDERSON READ BACK RESULTS AND DATE OF OF [birth year] VERIFIED 07/02/21 1554 RENA CAMARILLO Performed By: #### B MP, CBCD #### [facility] [address] [place] [address] NT-proBNPon 07-02-2021 Natriuretic peptide B (Bld) [Mass/Vol] 209.00 pg/mL High 0-125 [facility] Comment on above: Result Comment: Using [...] consideration. . Performed By: #### C OVID19 [id number] #### [facility] [address] [place] [address] PROTHROMBIN TIMEon 2 INTERNATIONAL NORM RATIO 2.6 Normal 2.0-3.5 [facility] Comment on above: Result Comment: INR THERAPEUTIC RANGE: GROUP A 2.0-3.0 INR GROUP B 2.5-3.5 INR GROUP A SUGGESTED INDICATIONS: PROPHYLAXIS AND TREATMENT OF VENOUS THROMBOSIS TREATMENT OF PULMONARY EMBOLISM ATRIAL FIBRILLATION GROUP B SUGGESTED INDICATIONS: MECHANICAL PROSTHETIC VALVES Performed By: #### L ABASE, CMP, PT, CBCD, APTT #### [facility] [address] [place] [address] #### ALB SO #### [facility] [address] [place] [address] PT Coag (PPP) [Time] 24.3 s High 8.9-12.2 [facility] Comment on above: Performed By: #### L ABASE, CMP, PT, CBCD, APTT #### [facility] [address] [place] [address] #### ALB SO #### [facility] [address] [place] [address] TIBIA AND FIBULA RIGHT (2 V) on 07-02-2021 CRTIBFIR Name: CHARLI PORRAS Phys: CRISS ESPINO MD : 1950 Age: 71 Sex: M Acct: [id number] Loc: 425 1 Exam Date: 07/02/2021 Status: ADM IN Radiology No: [id number] Unit No: [id number] EXAM# TYPE/EXAM RESULT [id number] EDRAD/TIBIA AND FIBULA RIGHT (2 SEE REPORT [...] CASSIDY Technologist: MURIEL GAUTAM Transcribed Date/Time: 07/02/2021 (761) Regional Director Of Admissions: LEEANNE Printed Date/Time: 07/02/2021 (8206) PAGE 1 Signed Report Normal [facility] VENOUS LOWER EXTREMITY RT on 07-02-2021 USVENLER Name: CHARLI PORRAS Jagjit Phys: CRISS ESPINO MD : 1950 Age: 71 Sex: M Acct: [id number] Loc: H2016 1 Exam Date: 07/02/2021 Status: ADM IN Radiology No: [id number] Unit No: [id number] EXAM# TYPE/EXAM RESULT [id number] US/US VENOUS LOWER EXTREMITY RT SEE REPORT [...] CASSIDY Technologist: ZULEMA WORTHY Transcribed Date/Time: 07/02/2021 (0187) Regional Director Of Admissions: LEEANNE Printed Date/Time: 07/02/2021 (4915) PAGE 1 Signed Report Normal [facility] 06-26-2021 [place] Patient name: CHARLI PORRAS MR#: [id number] Date of Service: 06/26/21 Acc#: [id number] : 1950 Age: 71 Sex: M Dictated by: Maryan Tony MD Patient Name : CHARLI PORRAS (71yo, M) ID# [id number] Appt. Date/Time : 06/26/2021 07:45AM : 1950 [facility] Provider : MARYAN TONY M.D. Insurance Med Primary: [facility] (MEDICARE REPLACEMENT/ADVANTAGE - HMO) Insurance # : [id number] Policy/Group # : [id number] Med Secondary: [facility] ([place] - [place]) Insurance # : [id number] Policy/Group # : [id number] Prescription: [facility] - Member is eligible. details Prescription: [facility] - Member is eligible. details Chief Complaint medication refill refill- tramadol and gabapentin; feet, legs and back pain Patient's Care Team Primary Care Provider: ERICKA CASSIDY MD: [address] [place] [address], , Referring Provider: SARAH FELIPEI: [address] [place] [address], Ph [phone], Other: CHARISSE VALENCIA MD: [address] [place] [address], , ax Patient's Pharmacies [facility] ERX): [address] , [place] [address], Ph [phone], Vitals BP: 156/79 sitting L arm 06/26/2021 [...] TO SKIN ON (more content not included)... [facility] 05-22-2021 [place] Patient name: CHARLI PORRAS MR#: [id number] Date of Service: 05/22/21 Acc#: [id number] : 1950 Age: 71 Sex: M Dictated by: Maryan Tony MD Patient Name : CHARLI PORRAS (71yo, M) ID# [id number] Appt. Date/Time : 05/22/2021 01:15PM : 1950 Service Dept. : [facility]IN [facility]NAG[facility] Provider : MARYAN TONY M.D. Insurance Med Primary: [facility] (MEDICARE REPLACEMENT/ADVANTAGE - HMO) Insurance # : [id number] Policy/Group # : [id number] Med Secondary: [facility] ([place] REPLAC[place] - HMO) Insurance # : [id number] Policy/Group # : [id number] Prescription: [facility] - Member is eligible. details Prescription: [facility] - Member is eligible. details Chief Complaint *pain management refills; c/o pain shoulders, back legs - present states these last two weks pt has been in excruciating pain Patient's Care Team Primary Care Provider: ERICKA CASSIDY MD: [address] [place] [address], , Referring Provider: SARAH FELIPEI: [address] [place] [address], Ph [phone], Other: CHARISSE VALENCIA MD: [address] [place] [address], , ax Patient's Pharmacies [facility] (ERX): [address] [address], Ph [phone], Vitals 05/22/2021 01:14 pm BP: Ht: 5 [...] mellitus - Onse (more content not included)... [facility] 03-20-2021 [place] Patient name: CHARLI PORRAS MR#: [id number] Date of Service: 03/20/21 Acc#: [id number] : 1950 Age: 70 Sex: M Dictated by: Maryan Tony MD Patient Name : CHARLI PORRAS (70yo, M) ID# [id number] Appt. Date/Time : 03/20/2021 01:15PM : 1950 Service Dept. : [facility] Provider : MARYAN TONY M.D. Insurance Med Primary: [facility] (MEDICARE REPLACEMENT/ADVANTAGE - HMO) Insurance # : [id number] Policy/Group # : [id number] Med Secondary: [facility] (MEDICAID REPLACEMENT - HMO) Insurance # : [id number] Policy/Group # : [id number] Prescription: [facility] - Member is eligible. details Prescription: [facility] - Member is eligible. details Chief Complaint *pain management REFILL Patient's Care Team Primary Care Provider: ERICKA CASSIDY MD: [address] [place] [address], , Referring Provider: SARAH FELIPEI: [address] [place] [address], Ph [phone], Other: CHARISSE VALENCIA MD: [address] [place] [address], , ax Patient's Pharmacies [facility] (ERX): [address] [address], Ph [phone], Vitals BP: 160/79 03/20/2021 01:25 pm Ht: [...] - Cer (more content not included)... Normal [facility] .Auto Diffon 07-16-2020 Ammonia (P) [Mass/Vol] 0.60 10 3/mcL Normal 0.09-1.40 [facility] ([place]) Comment on above: Performed By: #### C BC, ADIFF, ANEU, BMP, GFR, TROPHS #### [address] [address] Basophils (Bld) [#/Vol] 0.10 10 3/mcL Normal 0.00-0.27 [facility] ([place]) Comment on above: Performed By: #### C BC, ADIFF, ANEU, BMP, GFR, TROPHS #### [address] [address] Basophils/100 WBC (Bld) 1.0 % Normal 0.0-2.5 [facility] ([place]) Comment on above: Performed By: #### C BC, ADIFF, ANEU, BMP, GFR, TROPHS #### [address] [address] Eosinophils (Bld) [#/Vol] 0.20 10 3/mcL Normal 0.00-0.65 [facility] ([place]) Comment on above: Performed By: #### C BC, ADIFF, ANEU, BMP, GFR, TROPHS #### [address] [address] Eosinophils/100 WBC (Bld) 2.5 % Normal 0.0-6.0 [facility] ([place]) Comment on above: Performed By: #### C BC, ADIFF, ANEU, BMP, GFR, TROPHS #### [address] [address] Lymphocytes (Bld) [#/Vol] 1.60 10 3/mcL Normal 0.90-4.32 [facility] ([place]) Comment on above: Performed By: #### C BC, ADIFF, ANEU, BMP, GFR, TROPHS #### [address] [address] Lymphocytes/100 WBC (Bld) 21.0 % Normal 20.0-40.0 [facility] ([place]) Comment on above: Performed By: #### C BC, ADIFF, ANEU, BMP, GFR, TROPHS #### [address] [address] Monocytes/100 WBC (Bld) 7.6 % Normal 2.0-13.0 [facility] ([place]) Comment on above: Performed By: #### C BC, ADIFF, ANEU, BMP, GFR, TROPHS #### [address] [address] Neutrophils/100 WBC (Bld) 67.9 % Normal 50.0-75.0 [facility] ([place]) Comment on above: Performed By: #### C BC, ADIFF, ANEU, BMP, GFR, TROPHS #### [address] [address] .GFRon 03-15-2021 GFR >60 Normal [facility] ([place]) Comment on above: Result Comment: GFR Population [...] ADIFF, ANEU, BMP, GFR, TROPHS #### [address] [address] GFR Non- 57 ml/min/1.73sqm Normal [facility] ([place]) Comment on above: Result Comment: GFR Population [...] ADIFF, ANEU, BMP, GFR, TROPHS #### [address] [address] .NEUABSon 07-16-2020 Neutrophils (Bld) [#/Vol] 5.20 10 3/mcL Normal 2.25-8.10 [facility] ([place]) Comment on above: Performed By: #### C BC, ADIFF, ANEU, BMP, GFR, TROPHS #### [address] [address] BMPon 07-16-2020 Calcium [Mass/Vol] 9.0 mg/dL Normal 8.4-10.1 [facility] ([place]) Comment on above: Result Comment: No te - New Reference Range in effect 19 Performed By: #### C BC, ADIFF, ANEU, BMP, GFR, TROPHS #### [address] [address] Chloride [Moles/Vol] 101 mmol/L Normal 98-110 [facility] ([place]) Comment on above: Performed By: #### C BC, ADIFF, ANEU, BMP, GFR, TROPHS #### [address] [address] CO2 [Moles/Vol] 24 mmol/L Normal 22-32 [facility] ([place]) Comment on above: Performed By: #### C BC, ADIFF, ANEU, BMP, GFR, TROPHS #### [address] [address] Creatinine [Mass/Vol] 1.24 mg/dL Normal 0.60-1.40 [facility] ([place]) Comment on above: Performed By: #### C BC, ADIFF, ANEU, BMP, GFR, TROPHS #### [address] [address] Electrolyte Balance 9.0 mEq/L Normal 4.0-15.0 [facility] ([place]) Comment on above: Performed By: #### C BC, ADIFF, ANEU, BMP, GFR, TROPHS #### [address] [address] Glucose [Mass/Vol] 253 mg/dL High 82-115 [facility] ([place]) Comment on above: Performed By: #### C BC, ADIFF, ANEU, BMP, GFR, TROPHS #### [address] [address] Potassium [Moles/Vol] 4.1 mmol/L Normal 3.5-5.0 [facility] ([place]) Comment on above: Performed By: #### C BC, ADIFF, ANEU, BMP, GFR, TROPHS #### [address] [address] Sodium [Moles/Vol] 134 mmol/L Low 136-145 [facility] ([place]) Comment on above: Performed By: #### C BC, ADIFF, ANEU, BMP, GFR, TROPHS #### [place] [id number] Urea nitrogen [Mass/Vol] 26.0 mg/dL High 8.0-22.0 [facility] ([place]) Comment on above: Performed By: #### C BC, ADIFF, ANEU, BMP, GFR, TROPHS #### [place] [id number] Urea nitrogen/Creatinine [Mass ratio] 21.0 ratio Normal 10.0-22.0 [facility] ([place]) Comment on above: Performed By: #### C BC, ADIFF, ANEU, BMP, GFR, TROPHS #### [address] [address] CBCon 07-16-2020 Erythrocyte distribution width (RBC) [Ratio] 14.7 % Normal 11.5-15.5 [facility] ([place]) Comment on above: Performed By: #### C BC, ADIFF, ANEU, BMP, GFR, TROPHS #### [place] [id number] Hematocrit (Bld) [Volume fraction] 44.5 % Normal 40.0-52.0 [facility] ([place]) Comment on above: Performed By: #### C BC, ADIFF, ANEU, BMP, GFR, TROPHS #### [place] [id number] Hemoglobin (Bld) [Mass/Vol] 15.2 G/dL Normal 13.0-17.5 [facility] ([place]) Comment on above: Performed By: #### C BC, ADIFF, ANEU, BMP, GFR, TROPHS #### [place] [id number] MCH (RBC) [Entitic mass] 30.4 pg Normal 27.0-33.0 [facility] ([place]) Comment on above: Performed By: #### C BC, ADIFF, ANEU, BMP, GFR, TROPHS #### [address] [address] MCHC (RBC) [Mass/Vol] 34.1 G/dL Normal 32.0-36.0 [facility] ([place]) Comment on above: Performed By: #### C BC, ADIFF, ANEU, BMP, GFR, TROPHS #### [place] [id number] MCV (RBC) [Entitic vol] 89.3 fL Normal 81.0-100.0 [facility] ([place]) Comment on above: Performed By: #### C BC, ADIFF, ANEU, BMP, GFR, TROPHS #### [place] [id number] Platelet mean volume (Bld) [Entitic vol] 7.6 fL Normal 6.4-10.5 [facility] ([place]) Comment on above: Performed By: #### C BC, ADIFF, ANEU, BMP, GFR, TROPHS #### [address] [address] Platelets (Bld) [#/Vol] 132 10 3/mcL Low 150-450 [facility] ([place]) Comment on above: Performed By: #### C BC, ADIFF, ANEU, BMP, GFR, TROPHS #### [place] [id number] RBC (Bld) [#/Vol] 4.99 10 6/mcL Normal 4.50-6.00 [facility] ([place]) Comment on above: Performed By: #### C BC, ADIFF, ANEU, BMP, GFR, TROPHS #### [address] [address] WBC (Bld) [#/Vol] 7.70 10 3/mcL Normal 4.50-10.80 [facility] ([place]) Comment on above: Performed By: #### C BC, ADIFF, ANEU, BMP, GFR, TROPHS #### [address] [address] [address] HEAD OR BRAIN W/O CONTRAS Ton [...] Date: 07/16/2020 9:32:33 PM Ordering Provider:Gayla Greenberg [facility] ([place]) PROon 07-16-2020 INR Coag (PPP) [Relative time] 1.6 {INR} Normal [facility] ([place]) Comment on above: Result Comment: [employer] (CHEST, 1991, 102:312S-25S) recommended therapeutic range for oral anticoagulant therapy is: LOW RISK: Prophylaxis of venous thrombosis INR: 2.0-3.0 Treatment of pulmonary embolism 2.0-3.0 Prevention of systemic embolism 2.0-3.0 HIGH RISK: Mechanical prosthetic valves 2.5-3.5 Performed By: #### P RO #### [facility] [address] [place] [address] PT Coag (PPP) [Time] 19.0 s High 9.0-14.8 [facility] ([place]) Comment on above: Result Comment: Effe ctive 11/16/07, Protime results may be affected by some antibiotics (i.e. Ciprofloxacin, Azithromycin, Bactrim) which may potentiate the action of oral anticoagulants, with further increases in Protime/INR. Performed By: #### P RO #### [place] [address] TROPHSon 07-16-2020 Troponin I High Sensitivity 7.91 ng/L Normal 0.00-54.00 [facility] ([place]) Comment on above: Performed By: #### C BC, ADIFF, ANEU, BMP, GFR, TROPHS #### [place] [address] UAon 07-16-2020 Color (U) Yellow Normal [facility] ([place]) Comment on above: Performed By: #### U A #### [place] [address] Glucose (U) [Mass/Vol] mg/dL Abnormal Negative [facility] ([place]) Comment on above: Performed By: #### U A #### [place] [address] Ketones Ql (U) Negative Normal Neg-Trace [facility] ([place]) Comment on above: Performed By: #### U A #### [place] [address] UA Appear Clear Normal [facility] ([place]) Comment on above: Performed By: #### U A #### [place] [address] UA Blood Negative Normal Neg-Trace [facility] ([place]) Comment on above: Performed By: #### U A #### [place] [id number] UA Leuk Est Negative Normal Negative [facility] ([place]) Comment on above: Performed By: #### U A #### [place] [id number] UA Nitrite Negative Normal Negative [facility] ([place]) Comment on above: Performed By: #### U A #### [place] [address] UA pH 5.5 Normal 5.0 - 8.0 [facility] ([place]) Comment on above: Performed By: #### U A #### [address] [address] UA Protein Negative Normal Negative [facility] ([place]) Comment on above: Performed By: #### U A #### [address] [address] UA Spec Grav 1.010 Abnormal [facility] ([place]) Comment on above: Performed By: #### U A #### [place] [address] UA Specimen Type Clean Catch Normal [facility] ([place]) Comment on above: Performed By: #### U A #### [place] [id number] UA Urobilinogen 1.0 E.U./dL Normal [facility] ([place]) Comment on above: Performed By: #### U A #### [place] [address] Urobilinogen Qn (U) Negative Normal Neg-Trace [facility] ([place]) Comment on above: Performed By: #### U A #### [place] [address] XR CHEST 1 VIEWon 07-16-2020 XR CHEST [...] Date: 07/16/2020 8:13:33 PM Ordering Provider:Gayla Carlisle [facility] ([place]) CR Knee 1 or 2 Views Lefton 10-07-2018 CR Knee 1 or 2 Views Left Patient Name: CHARLI PORRAS Diagnostic Radiology Exam Date/Time 10/07/2018 10:08:00 EDT Exam CR Knee 1 or 2 Views Left Ordering Physician FERNY GARCIA NICHOLAS A Accession Number [id number] CPT4 Codes 17610 () Reason For Exam PAIN Report BILATERAL KNEES LEFT KNEE SERIES CLINICAL INDICATION: Left knee arthroplasty follow-up, pain A standing AP view of the bilateral knees was performed. [place] and lateral plain film views of the [...] Transcribed Date and Time: 10/07/2018 4:28 Normal [facility] CR Knee Standing Bilateralon 10-07-2018 CR Knee Standing Bilateral Patient Name: CHARLI PORRAS Diagnostic Radiology Exam Date/Time 10/07/2018 10:08:00 EDT Exam CR Knee Standing AP Bilateral Ordering Physician FERNY GARCIA NICHOLAS A Accession Number [id number] CPT4 Codes 32318 () Reason For Exam PAIN Report BILATERAL KNEES LEFT KNEE SERIES CLINICAL INDICATION: Left knee arthroplasty follow-up, pain A standing AP view of the bilateral knees was performed. [place] and lateral plain film views of the [...] Transcribed Date and Time: 10/07/2018 4:28 Normal [facility] CR Knee 1 or 2 Views Lefton 09-02-2018 CR Knee 1 or 2 Views Left Patient Name: CHARLI PORRAS Diagnostic Radiology Exam Date/Time 09/02/2018 09:44:56 EDT Exam CR Knee 1 or 2 Views Left Ordering Physician MD LESLIE, SOHAN MEDINA Accession Number [id number] CPT4 Codes 20818 () Reason For Exam pain Report CLINICAL [...] Transcribed Date and Time: 09/02/2018 1:22 Normal [facility] CR Knee Standing Bilateralon 09-02-2018 CR Knee Standing Bilateral Patient Name: CHARLI PORRAS Diagnostic Radiology Exam Date/Time 09/02/2018 09:44:56 EDT Exam CR Knee Standing AP Bilateral Ordering Physician MD LESLIE, SOHAN MEDINA Accession Number [id number] CPT4 Codes 70897 () Reason For Exam pain Report CLINICAL [...] knee arthroplasty revision. Report Dictated on Workstation: [employer] Final Dictating Physician: MD ALFREDO JEFFREY Signed Date and Time: 09/02/2018 1:21 pm Signed by: MD ALFREDO JEFFREY Transcribed Date and Time: 09/02/2018 1:22 Normal [facility] CULTURE ANAEROBEon 9 CULTURE ANAEROBE CULTURE ANAEROBE --> Status: F No growth of anaerobes at 5 days. Normal [facility] Comment on above: Performed By: #### T SGL #### [facility] [address] [place] [address] Order Comment: Speci men collected in O.R. CULTURE ANAEROBE CULTURE ANAEROBE --> Status: F No growth of anaerobes at 5 days. Normal [facility] Comment on above: Performed By: #### T SGL #### [facility] [address] [place] [address] Basic Metabolic Panelon 08-02 Calcium [Mass/Vol] 8.8 mg/dL Normal 8.4-10.4 [facility] Comment on above: Performed By: #### H SULMA BMP3 ####[facility] [place] [address] Glucose [Mass/Vol] 211 mg/dL High 70-100 [facility] Comment on above: Performed By: #### H SULMA BMP3 ####[facility] [place] [address] Urea nitrogen [Mass/Vol] 32 mg/dL High 7-20 [facility] Comment on above: Performed By: #### H SULMA, BMP3 ####[employer] [address] [place] [address] Anion gap [Moles/Vol] 5 Normal [facility] Comment on above: Performed By: #### H SULMA, BMP3 ####[employer] [address] [place] [address] CO2 [Moles/Vol] 33 mmol/L High 22-30 [facility] Comment on above: Performed By: #### H SULMA BMP3 ####[facility] [employer] [address] [place] [address] Creatinine [Mass/Vol] 1.40 mg/dL High 0.52-1.25 [facility] Comment on above: Performed By: #### H SULMA, BMP3 ####[facility] [employer] [address] [place] [address] GFR/1.73 sq M predicted among blacks MDRD (S/P/Bld) [Vol rate/Area] mL/min/{1.73_m2} Normal >60 [facility] Comment on above: Performed By: #### H SULMA BMP3 ####[facility] [employer] [address] [place] [address] GFR/1.73 sq M predicted among non-blacks MDRD (S/P/Bld) [Vol rate/Area] 50.2 mL/min/{1.73_m2} Normal >60 [facility] Comment on above: Result Comment: Sour ce- MDRD equation with creatinine calibration to IDMS(NKDEP) eGFR not recommended for drug dose adjustment Performed By: #### H SULMA, BMP3 ####[facility] [employer] [address] [place] [address] Potassium [Moles/Vol] 3.9 mmol/L Normal 3.5-5.1 [facility] Comment on above: Performed By: #### H SULMA, BMP3 ####[employer] [address] [place] [address] Chloride [Moles/Vol] 96 mmol/L Low 98-107 [facility] Comment on above: Performed By: #### H SULMA BMP3 ####[place] [address] [place] [address] Sodium [Moles/Vol] 134 mmol/L Low 135-145 [facility] Comment on above: Performed By: #### H SULMA BMP3 ####[place] [address] [place] [address] Glucose,Bedsideon 08-19-2018 Glucose [Mass/Vol] 331 mg/dL High 70-100 [facility] Comment on above: Result Comment: Test performed by glucose meter. Results may be 10%-15% lower than serum/plasma values. (CLIA ID [id number]) Performed By: #### B GLU ####[place] [address] [place] [address] Glucose [Mass/Vol] 255 mg/dL High 70-100 [facility] Comment on above: Result Comment: Test performed by glucose meter. Results may be 10%-15% lower than serum/plasma values. (CLIA ID [id number]) Performed By: #### B GLU ####[place] [address] [place] [address] Hemogramon 08-19-2018 Erythrocyte distribution width (RBC) [Ratio] 14.5 % Normal 11.5-14.5 [facility] Comment on above: Performed By: #### H SULMA BMP3 ####[place] [address] [place] [address] Hematocrit (Bld) [Volume fraction] 32.2 % Low 40.0-52.0 [facility] Comment on above: Performed By: #### H SULMA BMP3 ####[place] [address] [place] [address] Hemoglobin (Bld) [Mass/Vol] 11.1 g/dL Low 13.0-18.0 [facility] Comment on above: Performed By: #### H SULMA BMP3 ####[place] [address] [place] [address] MCH (RBC) [Entitic mass] 30.7 pg Normal 26.0-34.0 [facility] Comment on above: Performed By: #### H EMOG, BMP3 ####[facility] [employer] [address] [place] [address] MCHC (RBC) [Mass/Vol] 34.5 % Normal 32.0-36.0 [facility] Comment on above: Performed By: #### H EMOG, BMP3 ####[facility] [address] [place] [address] MCV (RBC) [Entitic vol] 89.0 fL Normal 80.0-98.[address] [facility] Comment on above: Performed By: #### H EMOG, BMP3 ####[facility] [employer] [address] [place] [address] Platelet mean volume (Bld) [Entitic vol] 7.1 fL Low 7.4-10.4 [facility] Comment on above: Performed By: #### H EMOG, BMP3 ####[facility] [place] [address] Platelets (Bld) [#/Vol] 130 10*3/uL Low 140-440 [facility] Comment on above: Performed By: #### H EMOG, BMP3 ####[facility] [employer] [address] [place] [address] RBC (Bld) [#/Vol] 3.62 10*6/uL Low 4.40-5.90 [facility] Comment on above: Performed By: #### H EMOG, BMP3 ####[facility] [address] [place] [address] WBC (Bld) [#/Vol] 6.6 10*3/uL Normal 3.6-10.7 [facility] Comment on above: Performed By: #### H EMOG, BMP3 ####[facility] [employer] [address] [place] [address] Basic Metabolic Panelon 08-02 Calcium [Mass/Vol] 8.8 mg/dL Normal 8.4-10.4 [facility] Comment on above: Performed By: #### T SGL #### [facility] [address] [place] [address] Glucose [Mass/Vol] 229 mg/dL High 70-100 [facility] Comment on above: Performed By: #### T SGL #### [facility] [address] [place] [address] Anion gap [Moles/Vol] 6 Normal [facility] Comment on above: Performed By: #### T SGL #### [facility] [address] [place] [address] CO2 [Moles/Vol] 32 mmol/L High 22-30 [facility] Comment on above: Performed By: #### T SGL #### [facility] [address] [place] [address] Creatinine [Mass/Vol] 1.48 mg/dL High 0.52-1.25 [facility] Comment on above: Performed By: #### T SGL #### [facility] [address] [place] [address] GFR/1.73 sq M predicted among blacks MDRD (S/P/Bld) [Vol rate/Area] 57.1 mL/min/{1.73_m2} Normal >60 [facility] Comment on above: Performed By: #### T SGL #### [place] [address] [place] [address] GFR/1.73 sq M predicted among non-blacks MDRD (S/P/Bld) [Vol rate/Area] 47.1 mL/min/{1.73_m2} Normal >60 [facility] Comment on above: Result Comment: Sour ce- MDRD equation with creatinine calibration to IDMS(NKDEP) eGFR not recommended for drug dose adjustment Performed By: #### T SGL #### [facility] [address] [place] [address] Urea nitrogen [Mass/Vol] 39 mg/dL High 7-20 [facility] Comment on above: Performed By: #### T SGL #### [facility] [address] [place] [address] Chloride [Moles/Vol] 99 mmol/L Normal 98-107 [facility] Comment on above: Performed By: #### T SGL #### [facility] [address] [place] [address] Potassium [Moles/Vol] 4.1 mmol/L Normal 3.5-5.1 [facility] Comment on above: Performed By: #### T SGL #### [facility] [address] [place] [address] Sodium [Moles/Vol] 136 mmol/L Normal 135-145 [facility] Comment on above: Performed By: #### T SGL #### [facility] [address] [place] [address] Glucose,Bedsideon 08-18-2018 Glucose [Mass/Vol] 214 mg/dL High 70-100 [facility] Comment on above: Result Comment: Test performed by glucose meter. Results may be 10%-15% lower than serum/plasma values. (CLIA ID [id number]) Performed By: #### B GLU ####[facility] [place] [address] Glucose [Mass/Vol] 286 mg/dL High 70-100 [facility] Comment on above: Result Comment: Test performed by glucose meter. Results may be 10%-15% lower than serum/plasma values. (CLIA ID [id number]) Performed By: #### B GLU ####[facility] [place] [address] Glucose [Mass/Vol] 285 mg/dL High 70-100 [facility] Comment on above: Result Comment: Test performed by glucose meter. Results may be 10%-15% lower than serum/plasma values. (CLIA ID [id number]) Performed By: #### B GLU ####[facility] [place] [address] Glucose [Mass/Vol] 251 mg/dL High 70-100 [facility] Comment on above: Result Comment: Test performed by glucose meter. Results may be 10%-15% lower than serum/plasma values. (CLIA ID [id number]) Performed By: #### T SGL #### [facility] [address] [place] [address] Hemogramon 08-18-2018 Erythrocyte distribution width (RBC) [Ratio] 14.6 % High 11.5-14.5 [facility] Comment on above: Performed By: #### T SGL #### [facility] [address] [place] [address] Hematocrit (Bld) [Volume fraction] 33.6 % Low 40.0-52.0 [facility] Comment on above: Performed By: #### T SGL #### [facility] [address] [place] [address] Hemoglobin (Bld) [Mass/Vol] 11.4 g/dL Low 13.0-18.0 [facility] Comment on above: Performed By: #### T SGL #### [facility] [address] [place] [address] MCH (RBC) [Entitic mass] 30.6 pg Normal 26.0-34.0 [facility] Comment on above: Performed By: #### T SGL #### [facility] [address] [place] [address] MCHC (RBC) [Mass/Vol] 34.0 % Normal 32.0-36.0 [facility] Comment on above: Performed By: #### T SGL #### [facility] [address] [place] [address] MCV (RBC) [Entitic vol] 90.0 fL Normal 80.0-98.[address] [facility] Comment on above: Performed By: #### T SGL #### [facility] [address] [place] [address] Platelet mean volume (Bld) [Entitic vol] 7.5 fL Normal 7.4-10.4 [facility] Comment on above: Performed By: #### T SGL #### [facility] [address] [place] [address] Platelets (Bld) [#/Vol] 129 10*3/uL Low 140-440 [facility] Comment on above: Performed By: #### T SGL #### [facility] [address] [place] [address] RBC (Bld) [#/Vol] 3.73 10*6/uL Low 4.40-5.90 [facility] Comment on above: Performed By: #### T SGL #### [place] [address] [place] [address] WBC (Bld) [#/Vol] 8.4 10*3/uL Normal 3.6-10.7 [facility] Comment on above: Performed By: #### T SGL #### [facility] [address] [place] [address] Basic Metabolic Panelon 08-02 Anion gap [Moles/Vol] 7 Normal [facility] Comment on above: Performed By: #### P T #### [facility] [address] [place] [address] Calcium [Mass/Vol] 9.0 mg/dL Normal 8.4-10.4 [facility] Comment on above: Performed By: #### P T #### [facility] [address] [place] [address] CO2 [Moles/Vol] 26 mmol/L Normal 22-30 [facility] Comment on above: Performed By: #### P T #### [facility] [address] [place] [address] Creatinine [Mass/Vol] 1.64 mg/dL High 0.52-1.25 [facility] Comment on above: Performed By: #### P T #### [facility] [address] [place] [address] GFR/1.73 sq M predicted among blacks MDRD (S/P/Bld) [Vol rate/Area] 50.7 mL/min/{1.73_m2} Normal >60 [facility] Comment on above: Performed By: #### P T #### [facility] [address] [place] [address] GFR/1.73 sq M predicted among non-blacks MDRD (S/P/Bld) [Vol rate/Area] 41.8 mL/min/{1.73_m2} Normal >60 [facility] Comment on above: Result Comment: Sour ce- MDRD equation with creatinine calibration to IDMS(NKDEP) eGFR not recommended for drug dose adjustment Performed By: #### P T #### [facility] [address] [place] [address] Glucose [Mass/Vol] 329 mg/dL High 70-100 [facility] Comment on above: Performed By: #### P T #### [facility] [address] [place] [address] Urea nitrogen [Mass/Vol] 32 mg/dL High 7-20 [facility] Comment on above: Performed By: #### P T #### [facility] [address] [place] [address] Chloride [Moles/Vol] 99 mmol/L Normal 98-107 [facility] Comment on above: Performed By: #### P T #### [facility] [address] [place] [address] Potassium [Moles/Vol] 5.2 mmol/L High 3.5-5.1 [facility] Comment on above: Performed By: #### P T #### [facility] [address] [place] [address] Sodium [Moles/Vol] 133 mmol/L Low 135-145 [facility] Comment on above: Performed By: #### P T #### [facility] [address] [place] [address] CULTURE AND STAIN - FLUIDon 08-17-2018 CULTURE AND STAIN - FLUID CULTURE & STAIN - FLUID --> Status: F No growth at 5 days. STAIN GRAM --> Status: F Few polymorphonuclear cells/lpf. No organisms seen. No organisms seen. Normal [facility] Comment on above: Performed By: #### T SGL #### [facility] [address] [place] [address] CULTURE AND STAIN - TISSUEon 08-17-2018 CULTURE AND STAIN - TISSUE CULTURE & STAIN - TISSUE --> Status: F No growth at 3 days. STAIN GRAM --> Status: F Rare polymorphonuclear cells/lpf. No organisms seen. No organisms seen. Normal [facility] Comment on above: Order Comment: Speci men collected in O.R. Performed By: #### T SGL #### [facility] [address] [place] [address] CULTURE AND STAIN - TISSUE CULTURE & STAIN - TISSUE --> Status: F No growth at 3 days. STAIN GRAM --> Status: F Rare polymorphonuclear cells/lpf. No organisms seen. No organisms seen. Normal [facility] Comment on above: Performed By: #### P T #### [facility] [address] [place] [address] Glucose,Bedsideon 08-17-2018 Glucose [Mass/Vol] 258 mg/dL High 70-100 [facility] Comment on above: Result Comment: Test performed by glucose meter. Results may be 10%-15% lower than serum/plasma values. (CLIA ID [id number]) Performed By: #### T SGL #### [facility] [address] [place] [address] Glucose [Mass/Vol] 257 mg/dL High 70-100 [facility] Comment on above: Result Comment: Test performed by glucose meter. Results may be 10%-15% lower than serum/plasma values. (CLIA ID [id number]) Performed By: #### T SGL #### [facility] [address] [place] [address] Glucose [Mass/Vol] 324 mg/dL High 70-100 [facility] Comment on above: Result Comment: Test performed by glucose meter. Results may be 10%-15% lower than serum/plasma values. (CLIA ID [id number]) Performed By: #### P T #### [facility] [address] [place] [address] Glucose [Mass/Vol] 319 mg/dL High 70-100 [facility] Comment on above: Result Comment: Test performed by glucose meter. Results may be 10%-15% lower than serum/plasma values. (CLIA ID [id number]) Performed By: #### P T #### [facility] [address] [place] [address] Hemoglobin A1Con 08-17-2018 HbA1c (Bld) [Mass fraction] 177 mg/dL Normal [facility] Comment on above: Performed By: #### P T #### [facility] [address] [place] [address] HbA1c (Bld) [Mass fraction] 7.8 % High 4.0-5.7 [facility] Comment on above: Result Comment: --Hg bA1C levels may not be accurate in patients who have renal disease, received recent blood transfusions, are anemic, or who have dyshemoglobinemia. Performed By: #### P T #### [facility] [address] [place] [address] Hemoglobin AND Hematocriton 08-17-2018 Hematocrit (Bld) [Volume fraction] 35.9 % Low 40.0-52.0 [facility] Comment on above: Performed By: #### P T #### [facility] [address] [place] [address] Hemoglobin (Bld) [Mass/Vol] 12.2 g/dL Low 13.0-18.0 [facility] Comment on above: Performed By: #### P T #### [facility] [address] [place] [address] Prothrombin Timeon 9 INR Coag (PPP) [Relative time] 1.1 Normal 0.9-1.1 [facility] Comment on above: Result Comment: Campos [...] Infarction Performed By: #### P T #### [facility] [address] [place] [address] PT Coag (PPP) [Time] 11.2 s Normal 9.0-12.0 [facility] Comment on above: Result Comment: . Performed By: #### P T #### [facility] [address] [place] [address] CR Femur 2+ Views Lefton CR Femur 2+ Views Left Patient Name: CHARLI PORRAS Diagnostic Radiology Exam Date/Time 08/16/2018 16:30:00 EDT Exam CR Femur 2+ Views Left n Ordering Physician MD LESLIE, SOHAN MEDINA Accession Number [id number] CPT4 Codes 02455 () Reason For Exam to see top [...] Transcribed Date and Time: 08/16/2018 4:59 Normal [facility] CR Knee 1 or 2 Views Lefton 08-16-2018 CR Knee 1 or 2 Views Left Patient Name: CHARLI PORRAS Diagnostic Radiology Exam Date/Time 08/16/2018 14:53:00 EDT Exam CR Knee 1 or 2 Views Left Ordering Physician FERNY GARCIA NICHOLAS A Accession Number [id number] CPT4 Codes 50376 () Reason For Exam s/p TKA Report [...] Transcribed Date and Time: 08/16/2018 4:59 Normal [facility] Glucose,Bedsideon 08-16-2018 Glucose [Mass/Vol] 292 mg/dL High 70-100 [facility] Comment on above: Result Comment: Test performed by glucose meter. Results may be 10%-15% lower than serum/plasma values. (CLIA ID [id number]) Performed By: #### P T #### [facility] [address] [place] [address] Glucose [Mass/Vol] 246 mg/dL High [address] [place] [address] Comment on above: Result Comment: Test performed by glucose meter. Results may be 10%-15% lower than serum/plasma values. (CLIA ID [id number]) Performed By: #### P T #### [facility] [address] [place] [address] Glucose [Mass/Vol] 261 mg/dL [address] Comment on above: Result Comment: Test performed by glucose meter. Results may be 10%-15% lower than serum/plasma values. (CLIA ID [id number]) Performed By: #### P T #### [facility] [address] [place] [address] Glucose [Mass/Vol] 323 mg/dL [address] Comment on above: Result Comment: Test performed by glucose meter. Results may be 10%-15% lower than serum/plasma values. (CLIA ID [id number]) Performed By: #### B GLU #### [place] [address] [place] [address] Glucose [Mass/Vol] 333 mg/dL [address] Comment on above: Result Comment: Test performed by glucose meter. Results may be 10%-15% lower than serum/plasma values. (CLIA ID [id number]) Performed By: #### B GLU #### [facility] [address] [place] [address] Glucose [Mass/Vol] 301 mg/dL [address] Comment on above: Result Comment: Test performed by glucose meter. Results may be 10%-15% lower than serum/plasma values. (CLIA ID [id number]) Performed By: #### B GLU #### [facility] [address] [place] [address] Glucose [Mass/Vol] 317 mg/dL High 70-100 [facility] Comment on above: Result Comment: Test performed by glucose meter. Results may be 10%-15% lower than serum/plasma values. (CLIA ID [id number]) Performed By: #### B GLU #### [facility] [address] [place] [address] Glucose [Mass/Vol] 198 mg/dL High 70-100 [facility] Comment on above: Result Comment: Test performed by glucose meter. Results may be 10%-15% lower than serum/plasma values. (CLIA ID [id number]) Performed By: #### B GLU #### [facility] [employer] [facility] [address] [place] [address] Op Noteon 08-16-2018 Op Note [facility] [address] [facility] [address] Dept: [phone] Loc: [phone] Operative Report Patient Name: Charli Porras Date of : 1950 Date of Surgery: 08/16/18 Providers Performing: Surgeon: Sohan Gilliland MD Manager Demand (s): cookie [email or web address], qamar calloway Preoperative Diagnosis: [...] knee as well as revision performed in [place] by Dr. Graham. Is diagnosed with a [...] and the patient's name, medical record, number, [id number], and operative side was verified with the [...] reverse curettes and pituitary instruments. A laminar director of health care marketing was then placed and a posterior synovectomy [...] motion and patellar tracking, as well as samaritan of the joint line. The components were [...] check Signed by: Sohan Gilliland MD Normal [facility] Prothrombin Timeon 9 INR Coag (PPP) [Relative time] 1.2 High 0.9-1.1 [facility] Comment on above: Result Comment: Campos [...] Infarction Performed By: #### P T #### [facility] [address] [place] [address] PT Coag (PPP) [Time] 12.4 s High 9.0-12.0 [facility] Comment on above: Result Comment: . Performed By: #### P T #### [facility] [address] [place] [address] TS GELon 08-16-2018 TS GEL ABO Group: A Rh, Gel: NEG Antibody Screen Gel: NEG Normal [facility] Comment on above: Performed By: #### T SGL #### [facility] [address] [place] [address] CULTURE ANAEROBEon 9 CULTURE ANAEROBE CULTURE ANAEROBE --> Status: F No growth of anaerobes at 5 days. Normal [facility] Comment on above: Order Comment: Speci men Source Comment:not recvd in sterile container,centrif. in spud Performed By: #### D LAUREN WALTON, CRSTL #### [facility] [address] [place] [address] CULTURE AND STAIN - FLUIDon 05-23-2018 CULTURE AND STAIN - FLUID CULTURE & STAIN - FLUID --> Status: F No growth at 5 days. Normal [facility] Comment on above: Order Comment: Speci men Source Comment:not recvd in sterile container,centrif. in spud Performed By: #### D LAUREN WALTON, CRSTL #### [facility] [address] [place] [address] Basic Metabolic Panelon 05-04 Calcium [Mass/Vol] 9.1 mg/dL Normal 8.4-10.4 [facility] Comment on above: Performed By: #### D LAUREN WALTON, CRSTL #### [facility] [address] [place] [address] Glucose [Mass/Vol] 165 mg/dL High 70-100 [facility] Comment on above: Performed By: #### D LAUREN WALTON, CRSTL #### [facility] [address], [place] Anion gap [Moles/Vol] 7 Normal [facility] Comment on above: Performed By: #### D LAUREN WALTON, CRSTL #### [facility] [address], [place] CO2 [Moles/Vol] 27 mmol/L Normal 22-30 [facility] Comment on above: Performed By: #### D ANTON, EDWARDC, CRSTL #### [facility] [address] [place] [address] Creatinine [Mass/Vol] 1.58 mg/dL High 0.52-1.25 [facility] Comment on above: Performed By: #### D EDWARD WALTONC, CRSTL #### [facility] [address], [place] GFR/1.73 sq M predicted among blacks MDRD (S/P/Bld) [Vol rate/Area] 53.0 mL/min/{1.73_m2} Normal >60 [facility] Comment on above: Performed By: #### D LAUREN WALTON, DEMETRIUS #### [place] [address] [place] [address] GFR/1.73 sq M predicted among non-blacks MDRD (S/P/Bld) [Vol rate/Area] 43.7 mL/min/{1.73_m2} Normal >60 [facility] Comment on above: Result Comment: Sour ce- MDRD equation with creatinine calibration to IDMS(NKDEP) eGFR not recommended for drug dose adjustment Performed By: #### LAUREN GRIJALVA, DEMETRIUS #### [place] [address] [place] [address] Urea nitrogen [Mass/Vol] 33 mg/dL High 7-20 [facility] Comment on above: Performed By: #### LAUREN GRIJALVA, CRSULICES #### [place] [address] [place] [address] Chloride [Moles/Vol] 104 mmol/L Normal 98-107 [facility] Comment on above: Performed By: #### D LAUREN WALTON, CRSTL #### [place] [address] [place] [address] Potassium [Moles/Vol] 4.3 mmol/L Normal 3.5-5.1 [facility] Comment on above: Performed By: #### LAUREN GRIJALVA, CRSTL #### [place] [address] [place] [address] Sodium [Moles/Vol] 138 mmol/L Normal 135-145 [facility] Comment on above: Performed By: #### LAUREN GRIJALVA, CRSTL #### [address] [place] [address] C-Reactive Proteinon 15- 019 CRP [Mass/Vol] 19.4 mg/L High 0.0-6.0 [facility] Comment on above: Result Comment: . Performed By: #### P T, ESR, CRP2 #### [address] [address] CR Femur 2+ Views Lefton CR Femur 2+ Views Left Patient Name: CHARLI PORRAS Diagnostic Radiology Exam Date/Time 2018 04:30:02 EST Exam CR Femur 2+ Views Left n Ordering Physician MD BERNABE ADAM Accession Number [id number] CPT4 Codes 74731 () Reason For Exam proximal femur Report [...] Transcribed Date and Time: 2018 4:34 Normal [facility] CT Head or Brain w/o Contras ton 2018 CT Head or Brain w/o Contrast Patient Name: CHARLI PORRAS CT Exam Date/Time 2018 04:36:[address] Head or Brain w/o Contrast Ordering Physician [id number] FORD Accession Number [id number] CPT4 Codes 36537 () Reason For Exam HEAD TRAUMA, CLOSED, [...] Transcribed Date and Time: 2018 5:03 Normal [facility] Cell Count,Body Fluidon 05-04 Nucleated Cells 21 {cells}/uL Normal [facility] Comment on above: Performed By: #### D LAUREN WALTON, CRSTL #### [facility] [address], [place] Fluid Type knee Normal [facility] Comment on above: Performed By: #### LAUREN GRIJALVA, CRSTL #### [place] [address] [place], [place] Crystals,Body Fluidon 2018 Crystals LM Nom (Urine sed) Negative Normal [facility] Comment on above: Performed By: #### D IFEDWARD GAYC, CRSTL #### [facility] [address], [place] Fluid Type \[id number]\ Normal [facility] Comment on above: Performed By: #### D IFDEIDRA FLDCC, CRSTL #### [facility] [address] [place], [place] Differential,Body Fluidson 0 2018 Lymphocytes/100 WBC (Bld) 10 % Normal [facility] Comment on above: Performed By: #### D IFBF FLDCC, CRSTL #### [facility] [address] [place], [place] Monocytes/100 WBC (Bld) 11 % Normal [facility] Comment on above: Performed By: #### D IFBF, FLDCC, CRSTL #### [facility] [address] [place] [address] Neutrophils/100 WBC (Bld) 79 % Normal [facility] Comment on above: Performed By: #### D IFBF, FLDCC, CRSTL #### [facility] [address] [place] [address] Cells Counted for Diff 100 Normal [facility] Comment on above: Performed By: #### D IFBF, FLDCC, CRSTL #### [facility] [address] [place] [address] Glucose,Bedsideon 2018 Glucose [Mass/Vol] 175 mg/dL High 70-100 [facility] Comment on above: Result Comment: Test performed by glucose meter. Results may be 10%-15% lower than serum/plasma values. (CLIA ID [id number]) Performed By: #### D IFBF, FLDCC, CRSTL #### [facility] [address] [place] [address] Glucose [Mass/Vol] 165 mg/dL High 70-100 [facility] Comment on above: Result Comment: Test performed by glucose meter. Results may be 10%-15% lower than serum/plasma values. (CLIA ID [id number]) Performed By: #### D IFBF, FLDCC, CRSTL #### [facility] [address] [place] [address] Glucose [Mass/Vol] 144 mg/dL High 70-100 [facility] Comment on above: Result Comment: Test performed by glucose meter. Results may be 10%-15% lower than serum/plasma values. (CLIA ID [id number]) Performed By: #### B GLU #### [facility] [address] [place] [address] Hemogramon 2018 Erythrocyte distribution width (RBC) [Ratio] 15.1 % High 11.5-14.5 [facility] Comment on above: Performed By: #### D IFBF, FLDCC, CRSTL #### [facility] [address], [place] Hematocrit (Bld) [Volume fraction] 40.8 % Normal 40.0-52.0 [facility] Comment on above: Performed By: #### D IFBF, FLDCC, CRSTL #### [place] [address] [place], [place] Hemoglobin (Bld) [Mass/Vol] 13.6 g/dL Normal 13.0-18.0 [facility] Comment on above: Performed By: #### D IFBF, FLDCC, CRSTL #### [place] [address] [place], [place] MCH (RBC) [Entitic mass] 29.7 pg Normal 26.0-34.0 [facility] Comment on above: Performed By: #### D IFBF, FLDCC, CRSTL #### [place] [address] [place], [place] MCHC (RBC) [Mass/Vol] 33.4 % Normal 32.0-36.0 [facility] Comment on above: Performed By: #### D IFBF, FLDCC, CRSTL #### [place] [address] [place], [place] MCV (RBC) [Entitic vol] 89.0 fL Normal 80.0-98.[address] [facility] Comment on above: Performed By: #### D IFBF, FLDCC, CRSTL #### [place] [address] [place], [place] Platelet mean volume (Bld) [Entitic vol] 8.1 fL Normal 7.4-10.4 [facility] Comment on above: Performed By: #### D IFBF, FLDCC, CRSTL #### [place] [address] [place], [place] Platelets (Bld) [#/Vol] 144 10*3/uL Normal 140-440 [facility] Comment on above: Performed By: #### D IFBF, FLDCC, CRSTL #### [place] [address] [place], [place] RBC (Bld) [#/Vol] 4.59 10*6/uL Normal 4.40-5.90 [facility] Comment on above: Performed By: #### D ANTON, LAUREN, CRSULICES #### [facility] [address], [place] WBC (Bld) [#/Vol] 6.4 10*3/uL Normal 3.6-10.7 [facility] Comment on above: Performed By: #### D ANTON, LAUREN, DEMETRIUS #### [facility] [address], [place] Prothrombin Timeon 9 INR Coag (PPP) [Relative time] 1.5 High 0.9-1.1 [facility] Comment on above: Result Comment: Campos [...] By: #### P T, ESR, CRP2 #### [facility] [address], [place] PT Coag (PPP) [Time] 14.8 s High 9.0-12.0 [facility] Comment on above: Result Comment: . Performed By: #### P T, ESR, CRP2 #### [facility] [address], [place] STAIN GRAMon 2018 STAIN GRAM STAIN GRAM --> Status: F Moderate polymorphonuclear cells/lpf. Moderate mononuclear cells/lpf No organisms seen. Moderate mononuclear cells/lpf No organisms seen. Normal [facility] Comment on above: Order Comment: Speci men Source Comment:not recvd in sterile container, centrif. in spud Performed By: #### C /MARGARITO, S/GRM, CXFLD #### [facility] [address] [place] [address] Sed Rateon 2018 Sed Rate 11 mm/h High 0-10 [facility] Comment on above: Performed By: #### P T, ESR, CRP2 #### [facility] [address] [place] [address] CBC WITH DIFFon 08-25-2016 ABSOLUTE BASO 0.10 K/UL Normal 0.00-0.20 [facility] ABSOLUTE EOS 0.10 K/UL Normal 0-0.33 [facility] ABSOLUTE LYMPHOCYTE 2.00 K/UL Normal 1.1-4.8 [facility] ABSOLUTE MONOCYTE 0.70 K/UL Normal 0.2-0.7 [facility] ABSOLUTE NEUTROPHIL 5.30 K/UL Normal 1.83-8.70 [facility] Basophils Auto #/vol (Bld) 1.0 % Normal 0.0-1.5 [facility] DIFF TYPE AUTO Normal [facility] Eosinophils/100 leukocytes 1.8 % Normal 0.0-3.0 [facility] Erythrocyte distribution width Auto Ratio (RBC) 14 % Normal 10.9-14.3 [facility] Erythrocytes (RBC) 4.74 M/UL Normal 4.50-5.50 [facility] Hematocrit (HCT) 42.2 % Normal 41.0-50.0 [facility] Hemoglobin mass conc (Bld) 14.3 g/dL Normal 13.5-16.5 [facility] Lymphocytes/100 leukocytes 24.3 % Normal 24-44 [facility] MCH 30.3 pg Normal 28.0-34.0 [facility] MCHC mass conc (RBC) 34.0 MG/DL Normal 33.0-37.0 [facility] MCV 89.1 fL Normal 80-100 [facility] Monocytes/100 leukocytes 8.6 % Normal 3.4-9.0 [facility] NEUTROPHIL 64.3 % Normal 40.0-74.0 [facility] Platelets 162 10*3/uL Normal 150-450 [facility] WBC (Leukocytes) 8.2 10*3/uL Normal 4.5-11.0 [facility] PROTIME COUMADINon 7 INR Coag RelTime (PPP) 4.21 HH Abnormal 2.0-3.5 [facility] RADon 08-25-2016 KNEE,LEFT (MIN 4 VIEWS) CPT 30830[facility] IM Normal [facility] CBC WITHOUT DIFFon 6 Erythrocyte distribution width Auto Ratio (RBC) 14.2 % Normal 10.9-14.3 [facility] Erythrocytes (RBC) 4.87 M/UL Normal 4.50-5.50 [facility] Hematocrit (HCT) 42.7 % Normal 41.0-50.0 [facility] Hemoglobin mass conc (Bld) 14.3 g/dL Normal 13.5-16.5 [facility] MCH 29.4 pg Normal 28.0-34.0 [facility] MCHC mass conc (RBC) 33.5 MG/DL Normal 33.0-37.0 [facility] MCV 87.6 fL Normal 80-100 [facility] Platelets 180 10*3/uL Normal 150-450 [facility] WBC (Leukocytes) 9.6 10*3/uL Normal 4.5-11.0 [facility] COMPREHENSIVE MEon 6 Alanine aminotransferase (ALT) 22 U/L Normal 10-63 [facility] Albumin 4.3 g/dL Normal 3.4-4.8 [facility] Albumin/Globulin Ratio 1.2 {ratio} Normal 1.1-2.2 [facility] ALK PHOS 44 U/L Normal 42-121 [facility] Anion gap 10 mmol/L Normal 3-11 [facility] Aspartate aminotransferase (AST) 26 U/L Normal 10-41 [facility] Bilirubin (direct) 0.8 mg/dL Normal 0.3-1.5 [facility] Calcium 9.6 mg/dL Normal 8.5-10.5 [facility] Chloride 105 mmol/L Normal 98-107 [facility] CO2 21 mmol/L Normal 21-31 [facility] Creatinine 1.8 mg/dL Abnormal 0.6-1.3 [facility] eGFR (non-black) 45.9 mL/min/{1.73_m2} Abnormal 60.0-128 .0 [facility] eGFR (non-black) 37.9 mL/min/{1.73_m2} Abnormal 60.0-128 .0 [facility] Globulin 3.7 g/dL Normal 1.9-3.9 [facility] Glucose mass conc 101 mg/dL Abnormal 70-99 [facility] Potassium molar conc 4.6 mmol/L Normal 3.6-5.0 [facility] Protein 8 g/dL Abnormal 5.9-7.8 [facility] Sodium 136 mmol/L Normal 135-145 [facility] Urea nitrogen 34 mg/dL Abnormal 6-20 [facility] D DIMERon 04-25-2016 D DIMER 1569.6 H NG/ML Abnormal 0-499 [facility] EKGon 04-25-2016 cardio: EKG Test Reason : Normal [facility] ESR, SED RATEon 04-25-2016 ESR /SEDRATE 10 MM/HR Normal 0-20 [facility] HEMOGLOBIN A1Con 04-25-2016 Hemoglobin A1c/Hemoglobin.total mass fraction (Bld) 7 % Abnormal 4.0-6.0 [facility] TSHon 04-25-2016 Thyroid stimulating hormone (TSH) 2.79 UIU/ML Normal 0.34-5.60 [facility] CBC WITH DIFFon 01-04-2016 ABSOLUTE BASO 0.10 K/UL Normal 0.00-0.20 [facility] ABSOLUTE EOS 0.20 K/UL Normal 0-0.33 [facility] ABSOLUTE LYMPHOCYTE 1.80 K/UL Normal 1.1-4.8 [facility] ABSOLUTE MONOCYTE 0.50 K/UL Normal 0.2-0.7 [facility] ABSOLUTE NEUTROPHIL 3.30 K/UL Normal 1.83-8.70 [facility] Basophils Auto #/vol (Bld) 0.9 % Normal 0.0-1.5 [facility] DIFF TYPE AUTO Normal [facility] Eosinophils/100 leukocytes 4.2 % Abnormal 0.0-3.0 [facility] Erythrocyte distribution width Auto Ratio (RBC) 14.8 % Abnormal 10.9-14.3 [facility] Erythrocytes (RBC) 4.52 M/UL Normal 4.50-5.50 [facility] Hematocrit (HCT) 40.1 % Abnormal 41.0-50.0 [facility] Hemoglobin mass conc (Bld) 13.3 g/dL Abnormal 13.5-16.5 [facility] Lymphocytes/100 leukocytes 29.9 % Normal 24-44 [facility] MCH 29.4 pg Normal 28.0-34.0 [facility] MCHC mass conc (RBC) 33.2 MG/DL Normal 33.0-37.0 [facility] MCV 88.7 fL Normal 80-100 [facility] Monocytes/100 leukocytes 8.5 % Normal 3.4-9.0 [facility] NEUTROPHIL 56.5 % Normal 40.0-74.0 [facility] Platelets 168 10*3/uL Normal 150-450 [facility] WBC (Leukocytes) 5.9 10*3/uL Normal 4.5-11.0 [facility] COMPREHENSIVE MEon 6 Alanine aminotransferase (ALT) 20 U/L Normal 10-63 [facility] Albumin 4 g/dL Normal 3.4-4.8 [facility] Albumin/Globulin Ratio 1.1 {ratio} Normal 1.1-2.2 [facility] ALK PHOS 43 U/L Normal 42-121 [facility] Anion gap 9 mmol/L Normal 3-11 [facility] Aspartate aminotransferase (AST) 20 U/L Normal 10-41 [facility] Bilirubin (direct) 0.6 mg/dL Normal 0.3-1.5 [facility] Calcium 9.6 mg/dL Normal 8.5-10.5 [facility] Chloride 108 mmol/L Abnormal 98-107 [facility] CO2 22 mmol/L Normal 21-31 [facility] Creatinine 1.7 mg/dL Abnormal 0.6-1.3 [facility] eGFR (non-black) 49 mL/min/{1.73_m2} Abnormal 60.0-128.0 [facility] eGFR (non-black) 40.5 mL/min/{1.73_m2} Abnormal 60.0-128 .0 [facility] Globulin 3.5 g/dL Normal 1.9-3.9 [facility] Glucose mass conc 263 mg/dL Abnormal 70-99 [facility] Potassium molar conc 4.9 mmol/L Normal 3.6-5.0 [facility] Protein 7.5 g/dL Normal 5.9-7.8 [facility] Sodium 139 mmol/L Normal 135-145 [facility] Urea nitrogen 39 mg/dL Abnormal 6-20 [facility] HEMOGLOBIN A1Con 01-04-2016 Hemoglobin A1c/Hemoglobin.total mass fraction (Bld) 6.7 % Abnormal 4.0-6.0 [facility] LIPID B PROFILEon 01-04-2016 Cholesterol 170 mg/dL Normal 140-200 [facility] HDL Cholesterol 31 mg/dL Normal 29-71 [facility] LDL Cholesterol 102 MG/DL Normal 0-129 [facility] LDL to HDL Ratio 3.3 Normal [facility] Triglyceride 297 mg/dL Abnormal 41-189 [facility] PROTIME COUMADINon 6 INR Coag RelTime (PPP) 3.53 H Abnormal 2.0-3.5 [facility] URINE MICRO ALBUon 6 UR RDM MICROALBUMIN 39.4 H UG/ML Abnormal 0.0-19.0 [facility] Vital Signs Date Time Vital Sign Value Performing Clinician Faci lity 01-10-2025 09:51-0400 Body temperature 97.8 [degF] ABHISHEK Paxer MELY Work Phone: [facility] 01-10-2025 09:51-0400 Diastolic blood pressure 75 mm[Hg] ABHISHEKCloud [employer] Work Phone: [facility] 01-10-2025 09:51-0400 Heart rate 74 /min [facility] [employer] Work Phone: [facility] 01-10-2025 09:51-0400 Respiratory rate 18 /min [facility] [employer] Work Phone: [facility] 01-10-2025 09:51-0400 SaO2% (BldA) [Mass fraction] 100 % ABHISHEK Paxer [employer] Work Phone: [phone] [place] [address] 01-10-2025 09:51-0400 Systolic blood pressure 156 mm[Hg] ABHISHEK SPRING [employer] Work Phone: [facility] 01-09-2025 12:32-0400 Body height 175.26 cm ABHISHEK [place] [employer] Work Phone: [facility] 01-09-2025 12:32-0400 Body weight 130.8 kg ABHISHEK [place] [employer] Work Phone: [phone] [place] [address] 01-09-2025 06:00-0400 Body mass index (BMI) [Ratio] 42.7 kg/m2 ABHISHEK [place] [employer] Work Phone: [phone] [place] [address] 01-06-2025 22:47-0400 Body temperature 98 [degF] ABHISHEK [place] [employer] Work Phone: [phone] [place] [address] 01-06-2025 22:47-0400 Diastolic blood pressure 64 mm[Hg] ABHISHEK [place] [employer] Work Phone: [phone] [place] [address] 01-06-2025 22:47-0400 Heart rate 84 /min ABHISHEK [place] [employer] Work Phone: [phone] [place] [address] 01-06-2025 22:47-0400 Respiratory rate 15 /min ABHISHEK [place] [employer] Work Phone: [phone] [place] [address] 01-06-2025 22:47-0400 SaO2% (BldA) [Mass fraction] 100 % ABHISHEK [place] [employer] Work Phone: [phone] [place] [address] 01-06-2025 22:47-0400 Systolic blood pressure 105 mm[Hg] ABHISHEK [place] [employer] Work Phone: [phone] [place] [address] 01-06-2025 18:14-0400 Body height 175.26 cm ABHISHEK [place]ING [employer] Work Phone: [facility] 01-06-2025 18:14-0400 Body mass index (BMI) [Ratio] 43.3 kg/m2 ABHISHEK [place] [employer] Work Phone: [phone] [place] [address] 01-06-2025 18:14-0400 Body weight 133.2 kg ABHISHEK BOONE Work Phone: [facility] 10-19-2024 15:31-0400 Body temperature 97.9 [degF] No Primary Care Physician [facility] 10-19-2024 15:31-0400 Diastolic blood pressure 69 mm[Hg] No Primary Care Physician [facility] 10-19-2024 15:31-0400 Heart rate 80 /min No Primary Care Physician [facility] 10-19-2024 15:31-0400 Respiratory rate 18 /min No Primary Care Physician [facility] 10-19-2024 15:31-0400 SaO2% (BldA) [Mass fraction] 97 % No Primary Care Physician [facility] 10-19-2024 15:31-0400 Systolic blood pressure 155 mm[Hg] No Primary Care Physician [facility] 10-19-2024 14:30-0400 Body height 175.26 cm No Primary Care Physician [facility] 10-19-2024 14:30-0400 Body weight 131.6 kg No Primary Care Physician [facility] 10-19-2024 05:24-0400 Body mass index (BMI) [Ratio] 42.8 kg/m2 No Primary Care Physician [facility] 10-14-2024 01:00-0400 Body temperature 98.3 [degF] No Primary Care Physician [facility] 10-14-2024 01:00-0400 Diastolic blood pressure 73 mm[Hg] No Primary Care Physician [facility] 10-14-2024 01:00-0400 Heart rate 68 /min No Primary Care Physician [facility] 10-14-2024 01:00-0400 Respiratory rate 17 /min No Primary Care Physician [facility] 10-14-2024 01:00-0400 SaO2% (BldA) [Mass fraction] 98 % No Primary Care Physician [facility] 10-14-2024 01:00-0400 Systolic blood pressure 127 mm[Hg] No Primary Care Physician [facility] 10-13-2024 20:30-0400 Body mass index (BMI) [Ratio] 44.5 kg/m2 No Primary Care Physician [facility] 10-13-2024 20:30-0400 Body weight 136.9 kg No Primary Care Physician [facility] 10-13-2024 17:47-0400 Body height 175.26 cm No Primary Care Physician [facility] 08-23-2024 13:35-0400 Body temperature 97.9 [degF] No Primary Care Physician [facility] 08-23-2024 13:35-0400 Diastolic blood pressure 61 mm[Hg] No Primary Care Physician [facility] 08-23-2024 13:35-0400 Heart rate 67 /min No Primary Care Physician [facility] 08-23-2024 13:35-0400 Respiratory rate 17 /min No Primary Care Physician [facility] 08-23-2024 13:35-0400 SaO2% (BldA) [Mass fraction] 95 % No Primary Care Physician [facility] 08-23-2024 13:35-0400 Systolic blood pressure 151 mm[Hg] No Primary Care Physician [facility] 08-23-2024 06:00-0400 Body mass index (BMI) [Ratio] 46 kg/m2 No Primary Care Physician [facility] 08-23-2024 06:00-0400 Body weight 141 kg No Primary Care Physician [facility] 08-22-2024 11:03-0400 Body height 175.26 cm No Primary Care Physician [facility] 08-21-2024 09:18-0400 Inhaled oxygen flow rate 2 L/min No Primary Care Physician [facility] 08-20-2024 06:00-0400 Body temperature 98.1 [degF] No Primary Care Physician [facility] 08-20-2024 06:00-0400 Diastolic blood pressure 58 mm[Hg] No Primary Care Physician [facility] 08-20-2024 06:00-0400 Heart rate 78 /min No Primary Care Physician [facility] 08-20-2024 06:00-0400 Inhaled oxygen flow rate 2 L/min No Primary Care Physician [facility] 08-20-2024 06:00-0400 Respiratory rate 18 /min No Primary Care Physician [facility] 08-20-2024 06:00-0400 SaO2% (BldA) [Mass fraction] 98 % No Primary Care Physician [facility] 08-20-2024 06:00-0400 Systolic blood pressure 100 mm[Hg] No Primary Care Physician [facility] 08-19-2024 23:48-0400 Body height 175.01 cm No Primary Care Physician [facility] 08-19-2024 23:48-0400 Body mass index (BMI) [Ratio] 44.6 kg/m2 No Primary Care Physician [facility] 08-19-2024 23:48-0400 Body weight 136.8 kg No Primary Care Physician [facility] 11-06-2022 16:37-0400 Body temperature 97.8 [degF] [facility] 11-06-2022 16:37-0400 Diastolic blood pressure 91 mm[Hg] [facility] 11-06-2022 16:37-0400 Heart rate 72 /min [facility] 11-06-2022 16:37-0400 Respiratory rate 18 /min [facility] 11-06-2022 16:37-0400 SaO2% (BldA) [Mass fraction] 96 % [facility] 11-06-2022 16:37-0400 Systolic blood pressure 154 mm[Hg] [facility] 11-06-2022 14:11-0400 Body height 175.26 cm [facility] 11-06-2022 14:11-0400 Body mass index (BMI) [Ratio] 48.2 kg/m2 [facility] 11-06-2022 14:11-0400 Body weight 148.32 kg [facility] 06-02-2022 08:00-0500 Heart rate 92 /min Ericka Ange Work Phone: [facility] 06-02-2022 08:00-0500 Respiratory rate 88 /min Ericka Ange Work Phone: [facility] 06-02-2022 08:00-0500 SaO2% (BldA) [Mass fraction] 90 % Ericka Ange Work Phone: [facility] 06-02-2022 07:55-0500 Body temperature 97.6 [degF] Ericka Ange Work Phone: [facility] 06-02-2022 07:55-0500 Diastolic blood pressure 64 mm[Hg] Ericka Ange Work Phone: [facility] 06-02-2022 07:55-0500 Systolic blood pressure 125 mm[Hg] Ericka Ange Work Phone: [facility] 05-31-2022 19:20-0500 Body height 175.26 cm Ericka Ange Work Phone: [facility] 05-31-2022 19:20-0500 Body mass index (BMI) [Ratio] 44.2 kg/m2 Ericka Ange Work Phone: [facility] 05-31-2022 19:20-0500 Body weight 135.99 kg Ericka Ange Work Phone: [facility] 04-23-2022 15:22-0500 SaO2% (BldA) [Mass fraction] 96 % Ericka Ange Work Phone: [facility] 04-23-2022 11:55-0500 Body temperature 97.9 [degF] Ericka Ange Work Phone: [facility] 04-23-2022 11:55-0500 Diastolic blood pressure 94 mm[Hg] Ericka Ange Work Phone: [facility] 04-23-2022 11:55-0500 Heart rate 85 /min Ericka Ange Work Phone: [facility] 04-23-2022 11:55-0500 Respiratory rate 17 /min Ericka Ange Work Phone: [facility] 04-23-2022 11:55-0500 SaO2% (BldA) [Mass fraction] 98 % Ericka Ange Work Phone: [facility] 04-23-2022 11:55-0500 Systolic blood pressure 130 mm[Hg] Ericka Ange Work Phone: [facility] 04-19-2022 14:43-0500 Diastolic blood pressure 70 mm[Hg] Ericka Ange Work Phone: [facility] 04-19-2022 14:43-0500 Heart rate 89 /min Ericka Ange Work Phone: [facility] 04-19-2022 14:43-0500 Respiratory rate 18 /min Ericka Ange Work Phone: [facility] 04-19-2022 14:43-0500 SaO2% (BldA) [Mass fraction] 99 % Ericka Ange Work Phone: [facility] 04-19-2022 14:43-0500 Systolic blood pressure 107 mm[Hg] Ericka Ange Work Phone: [facility] 04-19-2022 03:04-0500 Body temperature 99.4 [degF] Ericka Ange Work Phone: [facility] 04-19-2022 00:16-0500 Body height 175.26 cm Ericka Ange Work Phone: [facility] 04-19-2022 00:16-0500 Body weight 148.78 kg Ericka Ange Work Phone: [facility] 08-25-2016 19:00-0400 BP Diastolic 94 mm[Hg] [facility] 08-25-2016 19:00-0400 BP Systolic 162 mm[Hg] [facility] 08-25-2016 19:00-0400 Pulse (Heart Rate) 74 /min [facility] 08-25-2016 19:00-0400 Respiratory Rate 18 /min [facility] 08-25-2016 14:38-0400 Body Temperature 97.7 [degF] [facility] Encounters Encounter Date Encounter Type Care Provider Facility Start: 01-18-2025 ambulatory Ezequiel FRAZIER Fa cility:[facility] Start: 01-13-2025 ambulatory Efewdillwynbe Daniele OLS Fa cility:[facility] Start: 01-11-2025 ambulatory Efewdillwynbe Daniele OLS Fa cility:[facility] Start: 01-10-2025 Non-patient / Non-visit Dr. Mao Muse MD -[facility] Work Phone: Start: 01-09-2025 Non-patient / Non-visit Dr. Mao Muse MD -[facility] Work Phone: Start: 01-08-2025 Non-patient / Non-visit Dr. Mao Muse MD -[facility] Work Phone: Start: 01-07-2025 Non-patient / Non-visit Dr. Mao Muse MD -[facility] Work Phone: Start: 01-06-2025 ambulatory [facility] ty:[facility] Start: 01-06-2025 End: 01-10-2025 Evaluation and management of inpatient Dr. Ute Hancock MD -[facility] Work Phone: Start: 10-19-2024 Non-patient / Non-visit Dr. Jocelyn mcpherson MD -[facility] Work Phone: Start: 10-17-2024 Non-patient / Non-visit Dr. John Brownlee DO [facility] Work Phone: Start: 10-16-2024 Non-patient / Non-visit Dr. John Brownlee DO [facility] Work Phone: Start: 10-15-2024 Non-patient / Non-visit Dr. John Brownlee DO [facility] Work Phone: Start: 10-14-2024 Non-patient / Non-visit Dr. John Brownlee DO [facility] Work Phone: Start: 10-13-2024 [facility] Start: 10-13-2024 End: 10-19-2024 Evaluation and management of inpatient Dr. Bisi Rivera DO -Progressive Care Unit Work Phone: Start: 08-23-2024 Non-patient / Non-visit Dr. Mao Muse MD [facility] Work Phone: Start: 08-22-2024 Non-patient / Non-visit Dr. Mao Muse MD [facility] Work Phone: Start: 08-21-2024 Non-patient / Non-visit Dr. Mao Muse MD [facility] Work Phone: Start: 08-20-2024 End: 08-23-2024 Evaluation and management of inpatient Dr. Saroj Gutierrez DO -Intensive Care Unit Work Phone: Start: 08-20-2024 Non-patient / Non-visit [facility]. Bennett [facility] Work Phone: Start: 08-20-2024 ambulatory Mao Muse Facility: [facility] Start: 03-18-2024 End: 03-18-2024 Emergency department patient visit No Primary Care Physician Facility:[facility] Start: 11-06-2022 End: 11-06-2022 Emergency department patient visit [facility] Work Phone: Start: 06-06-2022 ambulatory DEVIKA STEIN Facility:[facility] Start: 06-02-2022 Non-patient / Non-visit Alejandra ly Ange Work Phone: [facility] INPATIENT Start: 06-01-2022 Non-patient / Non-visit Alejandra ly Ange Work Phone: [facility] INPATIENT Start: 05-31-2022 End: 06-02-2022 Evaluation and management of inpatient Naresh Flowerspattie Facility:[facility] Start: 05-31-2022 End: 06-02-2022 Evaluation and management of inpatient Ericka Freemanbee Work Phone: [facility] Start: 04-23-2022 ambulatory Errol Ramirez ty:[facility] Start: 04-23-2022 Non-patient / Non-visit Alejandra ly Ange Work Phone: [facility] Hospitalist Start: 04-22-2022 Non-patient / Non-visit Alejandra ly Ange Work Phone: [facility] Hospitalist Start: 04-21-2022 Non-patient / Non-visit Alejandra ly Ange Work Phone: [facility] Hospitalist Start: 04-20-2022 Non-patient / Non-visit Alejandra ly Ange Work Phone: [facility] Hospitalist Start: 04-19-2022 Non-patient / Non-visit Alejandra ly Ange Work Phone: [facility] Hospitalist Start: 04-19-2022 Evaluation and management of inpatient Ericka Ange Work Phone: [facility] 3 Start: 04-19-2022 observation encounter Ericka Ange Work Phone: [facility] Work Phone: Start: 04-19-2022 End: 04-23-2022 ambulatory Ericka Ange Facility:[facility] Start: 04-19-2022 End: 04-23-2022 Evaluation and management of inpatient Ericka Ange Work Phone: [facility] 2 Start: 04-19-2022 End: 04-23-2022 observation encounter Ericka Ange Work Phone: [facility] Work Phone: Start: 03-10-2022 ambulatory Sunita Barnes Facility :[facility] Start: 01-08-2022 ambulatory [facility] Facility:[facility] Start: 11-07-2021 ambulatory [facility] Facility:[facility] Start: 08-29-2021 ambulatory [facility] Facility:[facility] Start: 07-02-2021 End: 07-12-2021 Evaluation and management of inpatient UNKNOWN PROVIDER Facility:[facility] Start: 06-26-2021 ambulatory [facility] Facility:[facility] Start: 05-22-2021 ambulatory [facility] Facility:[facility] Start: 03-20-2021 ambulatory [facility] Facility:[facility] Procedures Date Procedure Procedure Detail Performing Clinician Start: 01-10-2025 Estimated creatinine clearance ABHISHEKJON ST MELY Work Phone: Start: 01-06-2025 Urnls dip stick/tabl et reagent auto microscopy ABHISHEK TACOMA MELY Work Phone: Start: 01-06-2025 Plain chest [...] Activity Detail Author Start: 01-10-2025 Patient discharge [facility] Start: 01-07-2025 [facility] Start: 01-06-2025 Following clinical p athway protocol [facility] Start: 01-06-2025 Aspiration precautions [facility] Start: 01-06-2025 Assessment of risk o f venous thromboembolism [facility] Start: 01-06-2025 Care regimes management [facility] Start: 01-06-2025 Fall prevention [facility] Start: 01-06-2025 Insertion of cathete r into peripheral vein [facility] Start: 01-06-2025 Introduction of urin concha catheter [facility] Start: 01-06-2025 Measuring intake and output [facility] Start: 01-06-2025 Notification of physician [facility] Start: 01-06-2025 Providing care accor ding to standard [facility] Start: 01-06-2025 Provision of activit y privileges [facility] Start: 01-06-2025 Referral to occupati onal therapist [facility] Start: 01-06-2025 Referral to service [facility] Start: 01-06-2025 End: 01-06-2025 [facility] Start: 01-06-2025 Admission procedure [facility] Start: 01-06-2025 Hospital admission, emergency, from emergency room, medical nature [facility] Start: 01-06-2025 End: 01-07-2025 [facility] Start: 01-06-2025 Bacteria identified in Urine by Culture Urine Culture [facility] Start: 10-19-2024 Patient discharge [facility] Start: 10-17-2024 [facility] Start: 10-15-2024 [facility] Start: 10-14-2024 Following clinical p athway protocol [facility] Start: 10-14-2024 Assessment of risk o f venous thromboembolism [facility] Start: 10-14-2024 Care regimes management [facility] Start: 10-14-2024 Catheterization of vein [facility] Start: 10-14-2024 Inhalation therapy procedure [facility] Start: 10-14-2024 Insertion of cathete r into peripheral vein [facility] Start: 10-14-2024 Measuring intake and output [facility] Start: 10-14-2024 Notification of physician [facility] Start: 10-14-2024 Providing care accor ding to [facility] Start: 10-14-2024 Provision of activit y privileges [facility] Start: 10-14-2024 Referral to occupati onal therapist [facility] Start: 10-14-2024 Referral to service [facility] Start: 10-13-2024 Hospital admission, emergency, from emergency room, medical nature [facility] Start: 10-13-2024 Verification routine [facility] Start: 10-13-2024 Admission procedure [facility] Start: 10-13-2024 End: 10-14-2024 [facility] Start: 10-13-2024 Bacteria identified in Blood by Culture Blood Culture [facility] Start: 10-13-2024 Bacteria identified in Urine by Culture Urine Culture [facility] Start: 08-23-2024 Referral to service [facility] Start: 08-23-2024 Patient discharge [facility] Start: 08-22-2024 Consultation [facility] Start: 08-22-2024 Referral to trailhead construction worker [facility] Start: 08-21-2024 [facility] Start: 08-20-2024 Bacteria identified in Blood by Culture Blood Culture [facility] Start: 08-20-2024 Bacteria identified in Urine by Culture Urine Culture [facility] Start: 08-20-2024 Following clinical p athway protocol [facility] Start: 08-20-2024 Assessment of risk o f venous thromboembolism [facility] Start: 08-20-2024 Elevation of head of bed [facility] Start: 08-20-2024 Insertion of cathete r into peripheral vein [facility] Start: 08-20-2024 Measuring intake and output [facility] Start: 08-20-2024 Oxygen therapy [facility] Start: 08-20-2024 Providing care accor ding to standard [facility] Start: 08-20-2024 Referral to occupati onal therapist [facility] Start: 08-20-2024 Referral to service [facility] Start: 08-20-2024 Vital signs measurements [facility] Start: 08-20-2024 End: 08-20-2024 [facility] Start: 08-20-2024 Care regimes management [facility] Start: 08-20-2024 Notification of physician [facility] Start: 08-20-2024 Verification routine [facility] Start: 08-20-2024 Admission procedure [facility] Start: 08-20-2024 Hospital admission, emergency, from emergency room, medical nature [facility] Start: 08-20-2024 End: 08-20-2024 [facility] Start: 06-02-2022 [facility] Start: 06-02-2022 Patient discharge [facility] Start: 05-31-2022 Referral to occupati onal therapist [facility] Start: 05-31-2022 End: 06-01-2022 Referral to service [facility] Start: 05-31-2022 Hospital admission [facility] Start: 05-31-2022 Vascular disease ris k assessment [facility] Start: 04-27-2022 [facility] Start: 04-26-2022 End: 04-26-2022 [facility] Start: 04-25-2022 End: 04-25-2022 [facility] Start: 04-24-2022 End: 04-24-2022 [facility] Start: 04-23-2022 Patient discharge [facility] Start: 04-23-2022 End: 04-23-2022 [facility] Start: 04-22-2022 [facility] Start: 04-21-2022 [facility] Start: 04-21-2022 [facility] Start: 04-21-2022 [facility] Start: 04-21-2022 [facility] Start: 04-20-2022 General health panel [facility] Start: 04-20-2022 [facility] Start: 04-19-2022 Referral to occupati onal therapist [facility] Start: 04-19-2022 Referral to service [facility] Start: 04-19-2022 Hospital admission [facility] Start: 04-19-2022 Vascular disease ris k assessment [facility] Start: 04-19-2022 End: 04-19-2022 [facility] Start: 04-19-2022 [facility] Start: 04-19-2022 End: 04-19-2022 [facility] Start: 04-19-2022 Referral to service [facility] Bacteria identified in Blood by Culture Blood Culture [facility] Bacteria identified in Unspecified specimen by Anaerobe+Aerobe culture [facility] Evaluation of urine specimen [facility] Gabapentin [Mass/vol ume] in Serum, Plasma or Blood [facility] Influenza virus B Ag [Presence] in Unspecified specimen [facility] INR in Platelet poor plasma by Coagulation assay [facility] Ketones [Presence] in Urine [facility] Lactic acid measurement [facility] Microbial culture Blood Culture [facility] Microbial culture Blood Culture [facility] Nitrate [Presence] in Urine [facility] Patient Education [facility] Work Phone: Patient referral [facility] Work Phone: pH of Urine [facility] Prothrombin time (PT ) in Blood by Coagulation assay [facility] SARS-CoV-2 Rapid RNA (RT-PCR) SARS-CoV-2 Rapid RNA (RT-PCR) [facility] Specific gravity of Urine [facility] Urinalysis, blood, qualitative [facility] Urine culture Urine Culture [facility] Urine culture [facility] Urine dipstick for glucose [facility] Urine dipstick for protein [facility] Urine examination [facility] Urine leukocyte test [facility] Immunizations Immunization Date Immunization Notes Care Provider Fa cili 02-11-2022 influenza, injectabl e, quadrivalent, preservative free No Primary Care Physician [facility] 03-05-2021 Covid (Moderna) No Primary C are Physician [facility] 03-05-2021 Influenza, injectabl e, Madin Heydi Canine Kidney, preservative free, quadrivalent No Primary Care Physician [facility] 07-24-2020 Covid (Moderna) No Primary C are Physician [facility] 06-26-2020 Covid (Moderna) No Primary C are Physician [facility] 02-06-2020 influenza, injectabl e, quadrivalent, preservative free No Primary Care Physician [facility] 02-06-2020 pneumococcal polysaccharide vaccine, 23 valent No Primary Care Physician [facility] 02-01-2019 influenza, injectabl e, quadrivalent, preservative free No Primary Care Physician [facility] 12-31-2018 Seasonal trivalent influenza vaccine, adjuvanted, preservative free ABHISHEK BOONE Work Phone: [facility] 05-03-2018 pneumococcal conjuga te vaccine, 13 valent No Primary Care Physician [facility] 01-08-2018 Seasonal trivalent influenza vaccine, adjuvanted, preservative free ABHISHEK BOONE Work Phone: [facility] pneumococcal polysaccharide vaccine, 23 valent [facility] Payers Date Payer Category Payer Unknown [id number] 2022 Medicare [id number] 2022 Unknown [id number] 2021 Private Health Insurance [id number] 2021 Self-pay 2021 Unknown [id number] Medicare [id number] Medicare MEDICARE OUTPATI ENT PART B [id number] Medicare MEDICARE PART A B [id number] Unknown [id number] .840.1.890180.3.579.2. 630 Unknown [id number] 2.840.1.230823.3.579.2. 630 Unknown [id number] .840.1.311413.3.579.2. 630 Unknown [id number] 2.16.840.1.087328.3.579.2. 630 Unknown [id number] 2.16.840.1.500685.3.579.2. 630 Unknown [id number] 2.16840.1.225725.3.579.2. 630 Unknown [id number] 2.16840.1.579973.3.579.2. 630 Unknown [id number] Unknown [id number] 2.16.840.1.375563.3.579.2. 212 Unknown [id number] 2.16.840.1.905390.3.579.2. 212 Unknown [id number] 2.16.840.1.647710.3.579.2. 921 Unknown [id number] 2.16.840.1.286170.3.579.2. 921 Unknown [id number] 2.16.840.1.301313.3.579.2. 462 Unknown [id number] 2.16.840.1.889900.3.579.2. 462 Unknown [id number] 2.16.840.1.755033.3.579.2. 462 Unknown [id number] 2.16.840.1.360797.3.579.2. 462 Unknown [id number] 2.16.840.1.260949.3.579.2. 462 Unknown [id number] 2.16.840.1.675841.3.579.2. 462 Unknown [id number] 2.16.840.1.131715.3.579.2. 462 Unknown [id number] 2.16.840.1.490989.3.579.2. 462 Unknown [id number] 2.16.840.1.169299.3.579.2. 462 Unknown [id number] 2.16.840.1.172177.3.579.2. 462 Unknown [id number] 2.16.840.1.073793.3.579.2. 462 Unknown [id number] 2.16.840.1.773871.3.579.2. 462 Unknown [id number] 2.16.840.1.005472.3.579.2. 462 Unknown [id number] 2.16.840.1.770862.3.579.2. 462 Unknown [id number] 2.16.840.1.071585.3.579.2. 462 Unknown [id number] 2.16.840.1.394210.3.579.2. 462 Unknown [id number] 2.16.840.1.816939.3.579.2. 462 Unknown [id number] 2.16.840.1.521788.3.579.2. 462 Unknown [id number] 2.16.840.1.721846.3.579.2. 462 Unknown [id number] 2.16.840.1.578322.3.579.2. 462 Unknown [id number] 2.16.840.1.065009.3.579.2. 462 Unknown [id number] 2.16.840.1.683632.3.579.2. 462 Social History Date Type Detail Facility never a smoker [facility] Start: 04-19-2022 End: 01-06-2025 Tobacco smoking status NHIS Never smoked tobacco (finding) [facility] Start: 04-19-2022 No [facility] Start: 1950 Sex Assigned At Male [facility] Start: 11-06-2022 Tobacco smoking stat us ARIS Unknown if ever smoked [facility] Start: 08-20-2024 Sex Male (finding) [facility] Goals Date Patient Goal Desired Activity /State Functional Status Date Assessment Result Facility 01-10-2025 Functional status Ambulates [facility] Work Phone: 10-19-2024 Functional status Ambulates [facility] Work Phone: 08-23-2024 Functional status Chair [facility] Work Phone: 06-02-2022 Functional status Independent [facility] Work Phone: 06-02-2022 Functional status Speech Pattern Clear [facility] Work Phone: 05-31-2022 Functional status Fair [facility] Work Phone: 05-31-2022 Functional status Support Person Spouse S [facility] Work Phone: 04-23-2022 Functional status Independent [place] [facility] Work Phone: 04-22-2022 Functional status Hard of Hearing [place] R [facility] Work Phone: 04-19-2022 Functional status Walker-Wheeled [place] [facility]: 04-19-2022 Functional status Speech Pattern Appropri ate [facility] Work Phone: 04-19-2022 Functional [facility] Work Phone: Mental Status Date Assessment Result Facility 01-10-2025 Cognitive function Voice/Name [facility] Work Phone: 01-06-2025 Cognitive function Voice/Name [facility] Work Phone: 10-19-2024 Cognitive function Voice/Name [facility] Work Phone: 08-23-2024 Cognitive function Voice/Name [facility] Work Phone: 08-20-2024 Cognitive function Level Of Cons ciousness Follows Commands;Drowsy [facility] Work Phone: 06-02-2022 Cognitive function Impaired Cognition No [facility] Work Phone: 06-01-2022 Cognitive function Cooperative [facility] Work Phone: 04-23-2022 Cognitive function Yes [facility] Work Phone: 04-23-2022 Cognitive function Mood Descript ion Appropriate;Calm [facility] Work Phone: 04-19-2022 Cognitive function Mood Description [facility] Work Phone: Clinical Notes 04-19-2022 to 01-10-2025 Note Date & Type Note Facility 01-10-2025 Discharge summary [facility] 01-10-2025 Discharge summary [facility] 01-10-2025 Note [facility] 01-09-2025 Progress note Note Date/Time January 09, 2025 3:19pm [facility] Medical Records Department [address] [place] [address] Progress Note - Hospitalist 01/09/25 1516 MR#: [id number] Acct: [id number] Name: CHARLI PORRAS Rep #:[id number] : 1950 74 From: Mao Justin PCP: ABHISHEK ST Status:ADM IN Location: [place] [address] Reason for Visit Chief Complaint: Weakness, confusion, [...] but is pending pre-CERT to go to care home Earlier, the patient admitted with decreased level [...] an outpatient. PT and OT and social welfare administrator. #9. Hypothyroidism: continue patient on levothyroxine regimen. [...] 206 H Charges/Coding Visit Charges Inpatient E&M: 55040 Subs Hosp L2 01/09/25 2795 <Electronically signed by Mao Muse MD> Cosigner Signature (if applicable): CC: ~ Signed [facility] Work Phone: 1(337) 738-803809-08-2025 Progress note [facility] Medical Records Department [address] [place] [address] Progress Note - Hospitalist 01/09/25 1516 MR#: [id number] Acct: [id number] Name: CHARLI PORRAS Rep #:[id number] : 1950 74 From: Mao Justin PCP: ABHISHEK ST Status:ADM IN Location: [facility] [id number] Reason for Visit Chief Complaint: Weakness, confusion, [...] but is pending pre-CERT to go to care home Earlier, the patient admitted with decreased level [...] an outpatient. PT and OT and social welfare administrator. #9. Hypothyroidism: continue patient on levothyroxine regimen. [...] 206 H Charges/Coding Visit Charges Inpatient E&M: 09632 Subs Hosp L2 01/09/25 1516 Cosigner Signature (if applicable): CC: ~ Signed [facility]09-07-2025 Progress note Author Mao Muse [facility] Note Date/Time January 08, 2025 2:07pm [facility] Medical Records Department [address] [place] [address] Progress Note - Hospitalist 01/08/25 1401 MR#: [id number] Acct: [id number] Name: CHARLI PORRAS Rep #:[id number] : 1950 74 From: Mao Justin PCP: ABHISHEK ST Status:ADM IN Location: [place] [address] Reason for Visit Chief Complaint: Weakness, confusion, [...] an outpatient. PT and OT and social welfare administrator. #9. Hypothyroidism: continue patient on levothyroxine regimen. [...] 206 H Charges/Coding Visit Charges Inpatient E&M: 00786 Subs Hosp L2 01/08/25 1407 <Electronically signed by Mao Muse MD> Cosigner Signature (if applicable): CC: ~ Signed [facility] Work Phone: 1(723) 717-556609-07-2025 Progress note [facility] Medical Records Department [address] [place] [address] Progress Note - Hospitalist 01/08/25 1401 MR#: [id number] Acct: [id number] Name: CHARLI PORRAS Rep #:[id number] : 1950 74 From: Mao Justin PCP: ABHISHEK ST Status:ADM IN Location: [facility] KB441-0 Reason for Visit Chief Complaint: Weakness, confusion, [...] an outpatient. PT and OT and social welfare administrator. #9. Hypothyroidism: continue patient on levothyroxine regimen. [...] 206 H Charges/Coding Visit Charges Inpatient E&M: 27092 Subs Hosp L2 01/08/25 1407 Cosigner Signature (if applicable): CC: ~ Signed [facility]09-06-2025 Progress note Author Mao Muse [facility] Note Date/Time January 07, 2025 2:28pm [facility] Medical Records Department [address] [place] [address] Progress Note - Hospitalist 01/07/25 1110 MR#: [id number] Acct: [id number] Name: CHARLI PORRAS Rep #:[id number] : 1950 74 From: Mao Justin PCP: ABHISHEK ST Status:ADM IN Location: [facility] [id number] Reason for Visit Chief Complaint: Weakness, confusion, [...] % (Auto) 69.5, Lymph % (Auto) 20.3, Stephenson% (Auto) 5.7, Eos % (Auto) 2.9, Baso [...] Clarity Cloudy, Urine pH 6.0, Ur Specific [place] 1.015, Urine Protein 30 H, Urine Glucose [...] % (Auto) 61.7, Lymph % (Auto) 25.2, Stephenson % (Auto) 8.5, Eos % (Auto) 3.2, [...] ischemic gliotic white matter changes. Reading Location: [facility] Chest X-Ray 01/06/25 19:20 IMPRESSION: No Acute Findings. Reading Location: [facility] Physical Exam Narrative Patient was admitted with [...] an outpatient. PT and OT and social welfare administrator. #9. Hypothyroidism: continue patient on levothyroxine regimen. [...] % (Auto) 69.5, Lymph % (Auto) 20.3, Stephenson% (Auto) 5.7, Eos % (Auto) 2.9, Baso [...] Clarity Cloudy, Urine pH 6.0, Ur Specific [place] 1.015, Urine Protein 30 H, Urine Glucose [...] % (Auto) 61.7, Lymph % (Auto) 25.2, Stephenson % (Auto) 8.5, Eos % (Auto) 3.2, [...] 113 H Charges/Coding Visit Charges Inpatient E&M: 34147 Subs Hosp L2 01/07/25 3686 <Electronically signed by Mao Muse MD> Cosigner Signature (if applicable): CC: ~ Signed [facility] Work Phone: 1(102) 802-758709-06-2025 Progress note [facility] Medical Records Department [address] [place] [address] Progress Note - Hospitalist 01/07/25 1110 MR#: [id number] Acct: [id number] Name: CHARLI PORRAS Rep #:[id number] : 1950 74 From: Mao Justin PCP: ABHISHEK ST Status:ADM IN Location: [facility] [id number] Reason for Visit Chief Complaint: Weakness, confusion, [...] Neut %(Auto) 69.5, Lymph % (Auto) 20.3, Stephenson% (Auto) 5.7, Eos % (Auto) 2.9, Baso % (Auto) 0.7, Absolute Neuts (auto) 5.6, Absolute Lymphs (auto) 1.64, Nucleated RBC % 0, Sodium 135, Potassium 4.4, Jbeztyuf841, Carbon Dioxide 23.6, Anion Gap 12, BUN [...] Clarity Cloudy, Urine pH 6.0, Ur Specific [place] 1.015, Urine Protein 30 H, Urine Glucose [...] % (Auto) 61.7, Lymph % (Auto) 25.2, Stephenson % (Auto) 8.5, Eos % (Auto) 3.2, [...] ischemic gliotic white matter changes. Reading Location: [facility] Chest X-Ray 01/06/25 19:20 IMPRESSION: No Acute Findings. Reading Location: [facility] Physical Exam Narrative Patient was admitted with [...] an outpatient. PT and OT and social welfare administrator. #9. Hypothyroidism: continue patient on levothyroxine regimen. [...] Neut %(Auto) 69.5, Lymph % (Auto) 20.3, Stephenson% (Auto) 5.7, Eos % (Auto) 2.9, Baso % (Auto) 0.7, Absolute Neuts (auto) 5.6, Absolute Lymphs (auto) 1.64, Nucleated RBC % 0, Sodium 135, Potassium 4.4, Tjebdqkv201, Carbon Dioxide 23.6, Anion Gap 12, BUN [...] Clarity Cloudy, Urine pH 6.0, Ur Specific [place] 1.015, Urine Protein 30 H, Urine Glucose [...] % (Auto) 61.7, Lymph % (Auto) 25.2, Stephenson % (Auto) 8.5, Eos % (Auto) 3.2, [...] 113 H Charges/Coding Visit Charges Inpatient E&M: 95294 Subs Hosp L2 01/07/25 1428 Cosigner Signature (if applicable): CC: ~ Signed [facility]09-06-2025 History and physical note Author Ute Hancock [facility] Note Date/Time January 06, 2025 11:31pm [facility] Medical Records Department [address] [place] [address] H&P Exam - Hospitalist 01/06/252236 MR#: [id number] Acct: [id number] Name: CHARLI PORRAS Rep #:[id number] : 1950 74 From: Ute Hancock MD PCP: ABHISHEK ST Status:ADM IN Location: [facility] [id number] HPI - General General Date of Admission: [...] Gout, HTN, HLD who presents to the [facility] ED on 01/06/25 with history [...] given debility and weakness decision for admission. [facility] Medical History CKD (chronic kidney disease), stage III Insulin dependent diabetes mellitus Dementia Kidney disease Gout Dementia Diabetes HTN (hypertension) Home Medications ?Medication ?Instructions ?Recorded ?Last Taken ?Type allopurinol 100 mg tablet 100 mg PO DAILYCM gout 05/03 Unknown History jajghnkw-xph-chovu acid 0.4 1 ea PO DAILY vitamin [...] % (Auto) 69.5, Lymph % (Auto) 20.3, Stephenson% (Auto) 5.7, Eos % (Auto) 2.9, Baso [...] Clarity Cloudy, Urine pH 6.0, Ur Specific [place] 1.015, Urine Protein 30 H, Urine Glucose [...] ischemic gliotic white matter changes. Reading Location: [facility] Chest X-Ray 01/06/25 19:20 IMPRESSION: No Acute Findings. Reading Location: [facility] Assessment & Plan Assessment/Plan (1) Acute encephalopathy: [...] Gout, HTN, HLD who presents to the [facility] ED on 01/06/25 with history [...] unclear exact etiology: Admission platelet 122, baseline 9303-1138, stable, continue to trend. #4. Anxiety and [...] Time: 16 Charges/Coding Visit Charges Inpatient E&M: 78738 Init Hosp L3 Procedures Hospitalists Procedures: 75193 Advncd Care Plan 30 Min 01/06/25 2331 <Electronically signed by Ute Hancock MD> Cosigner Signature (if applicable): CC: MELY DUARTE; Dr. Ute Hancock MD~ Signed [facility] Work Phone: 1(546) 873-558309-06-2025 Discharge summary [facility] Note Date/Time January 06, 2025 11:17pm [facility] Medical Records Department [address] [place] [address] Emergency Department Summary 01/06/25 MR#: [id number] Acct: [id number] Name: CHARLI PORRAS Rep #:[id number] : 1950 74 From: Gene Monroy MD PCP: ABHISHEK ST Status:ADM [facility] History of Present Illness Chief Complaint: Confusion [...] few days. No exacerbating or alleviating factors. [facility] Medical History CKD (chronic kidney disease), stage III Insulin dependent diabetes mellitus Dementia Kidney disease Gout Dementia Diabetes HTN (hypertension) Home Medications ?Medication ?Instructions ?Recorded ?Last Taken ?Type allopurinol 100 mg tablet 100 mg PO DAILYCM gout 05/03 Unknown History zzglgnyp-qpj-klhcd acid 0.4 1 ea PO DAILY vitamin [...] % (Auto) 69.5 Lymph % (Auto) 20.3 Stephenson % (Auto) 5.7 Eos % (Auto) 2.9 [...] Clarity Cloudy Urine pH 6.0 Ur Specific [place] 1.015 Urine Protein 30 H Urine Glucose [...] ischemic gliotic white matter changes. Reading Location: [facility] Chest X-Ray 01/06/25 19:20 IMPRESSION: No Acute Findings. Reading Location: [facility] Management Discussion w/another healthcare provider: Hospitalist (Dr. Ute Hancock) and building maintenance worker/Case management Discharge Plan Triage Chief Complaint: Confusion ED Provider: Gene Monroy Dx/Rx/DC Orders Clinical Impression: Visual hallucinations, Dementia Primary Care Provider: ABHISHEK ST What to do if you have Problems For any increased pain, shortness of breath, bleeding, nausea or vomiting, chestpain, or any unexpected problems, contact your Primary Care Provider. Call [facility] ([phone]) or report to the closest Emergency Room. Call 911 if necessary. 01/06/25 2317 <Electronically signed by Gene Monroy MD> Cosigner Signature (if applicable): CC: MELY DUARTE ~ Signed [facility] Work Phone: 1(363) 507-937909-05-2025 History and physical note [facility] Medical Records Department [address] [place] [address] H&P Exam - Hospitalist 01/06/252236 MR#: [id number] Acct: [id number] Name: CHARLI PORRAS Rep #:[id number] : 1950 74 From: Ute Hancock MD PCP: ABIHSHEK ST Status:ADM IN Location: [facility] [id number] HPI - General General Date of Admission: [...] Gout, HTN, HLD who presents to the [facility] ED on 01/06/25 with history [...] given debility and weakness decision for admission. [facility] Medical History CKD (chronic kidney disease), stage III Insulin dependent diabetes mellitus Dementia Kidney disease Gout Dementia Diabetes HTN (hypertension) Home Medications ?Medication ?Instructions ?Recorded ?Last Taken ?Type allopurinol 100 mg tablet 100 mg PO DAILYCM gout 05/03 Unknown History juzloxeg-arz-dxdhw acid 0.4 1 ea PO DAILY vitamin [...] Neut %(Auto) 69.5, Lymph % (Auto) 20.3, Stephenson% (Auto) 5.7, Eos % (Auto) 2.9, Baso % (Auto) 0.7, Absolute Neuts (auto) 5.6, Absolute Lymphs (auto) 1.64, Nucleated RBC % 0, Sodium 135, Potassium 4.4, Rxhdrdrc194, Carbon Dioxide 23.6, Anion Gap 12, BUN [...] Clarity Cloudy, Urine pH 6.0, Ur Specific [place] 1.015, Urine Protein 30 H, Urine Glucose [...] ischemic gliotic white matter changes. Reading Location: [facility] Chest X-Ray 01/06/25 19:20 IMPRESSION: No Acute Findings. Reading Location: [facility] Assessment & Plan Assessment/Plan (1) Acute encephalopathy: [...] Gout, HTN, HLD who presents to the [facility] ED on 01/06/25 with history [...] unclear exact etiology: Admission platelet 122, baseline 2665-1497, stable, continue to trend. #4. Anxiety and [...] Time: 16 Charges/Coding Visit Charges Inpatient E&M: 83997 Init Hosp L3 Procedures Hospitalists Procedures: 10257 Advncd Care Plan 30 Min 01/06/25 2331 Cosigner Signature (if applicable): CC: MELY DUARTE; Dr. Ute Hancock MD~ Signed [facility]09-05-2025 Discharge summary [facility] Medical Records Department [address] [place] [address] Emergency Department Summary 01/06/25 MR#: [id number] Acct: [id number] Name: CHARLI PORRAS Rep #:[id number] : 1950 74 From: Gene Monroy MD PCP: ABHISHEK ST Status:ADM IN Location: [place] [address] HPI History of Present Illness Chief Complaint: [...] few days. No exacerbating or alleviating factors. [facility] Medical History CKD (chronic kidney disease), stage III Insulin dependent diabetes mellitus Dementia Kidney disease Gout Dementia Diabetes HTN (hypertension) Home Medications ?Medication ?Instructions ?Recorded ?Last Taken ?Type allopurinol 100 mg tablet 100 mg PO DAILYCM gout 05/03 Unknown History cjfaapks-ydw-eherl acid 0.4 1 ea PO DAILY vitamin [...] % (Auto) 69.5 Lymph % (Auto) 20.3 Stephenson % (Auto) 5.7 Eos % (Auto) 2.9 [...] Clarity Cloudy Urine pH 6.0 Ur Specific [place] 1.015 Urine Protein 30 H Urine Glucose [...] ischemic gliotic white matter changes. Reading Location: [facility] Chest X-Ray 01/06/25 19:20 IMPRESSION: No Acute Findings. Reading Location: [facility] Management Discussion w/another healthcare provider: Hospitalist (Dr. Ute Hancock) and building maintenance worker/Case management Discharge Plan Triage Chief Complaint: Confusion ED Provider: Gene Monroy Dx/Rx/DC Orders Clinical Impression: Visual hallucinations, Dementia Primary Care Provider: ABHISHEK ST What to do if you have Problems For any increased pain, shortness of breath, bleeding, nausea or vomiting, chestpain, or any unexpected problems, contact your Primary Care Provider. Call [facility] ([phone]) or report tothe closest Emergency Room. Call 911 if necessary. 01/06/25 4087 Cosigner Signature (if applicable): CC: MELY DUARTE ~ Signed [facility]09-05-2025 Radiology Diagnostic study note [facility] Imaging Services [address] [place], [place] [address] Brain/Head without Contrast MR#: [id number] Acct: [id number] Name: CHARLI PORRAS Rep #: [id number] : 1950 M 74 From: Hermes Moncada MD PCP: ABHISHEK ST Status: REG ER Study:Brain/Head without Contrast Date of Exa m: 01/06/25 Exam# [id number] Ordering Dr: Gene Monroy MD PROCEDURE: BRAIN/HEAD [...] ischemic gliotic white matter changes. Reading Location: [facility] CC: MELY DUARTE; Dr. Gene Monroy MD ~ Regional Director Of Admissions: Signed [facility]09-05-2025 Radiology Diagnostic study note [facility] Imaging Services [address] [place] [address] Chest 1 View (Portable) MR#: [id number] Acct: [id number] Name: CHARLI PORRAS Rep #: [id number] : 1950 74 From: Hermes Moncada MD PCP: ABHISHEK ST Status: REG ER Study:Chest 1 View (Portable) Date of Exam: 01/06/25 Exam# [id number] Ordering Dr: Gene Monroy MD PROCEDURE: CHEST 1 VIEW (PORTABLE) 01/06/2025 REASON FOR EXAM: COUGH TECHNIQUE: Frontal view of the chest. COMPARISON: CT angio chest 08/20/2024 FINDINGS: Hardware: None. Heart: The heart size is normal. Lungs: The lungs are clear. Bones: The bones are unremarkable. Other: Left shoulder arthroplasty. Cervical spine fixation hardware. RAD/Chest 1 View (Portable) IMPRESSION: No Acute Findings. Reading Location: [facility] CC: MELY DUARTE; Dr. Gene Monroy MD ~ Regional Director Of Admissions: Signed [facility]06-18-2025 Discharge summary [facility] Medical Records Department [address] [place] [address] Instructions for Home/Discharge Instructions 10/19/24 1513 MR#: [id number] Acct: [id number] Name: CHARLI PORRAS Rep #:[id number] : [...] Provider: Jocelyn Polk Primary Care Provider: ABHISHEK TS Consulting Providers: Bisi Rivera; John Rod Instructions [...] DO; Dr. John Rod DO ~ Signed [facility]06-18-[facility] Progress note Author John Rod [facility] Note Date/Time October 18, 2024 5:09 pm [facility] Medical Records Department [address] [place] [address] Progress Note - Hospitalist 10/17/24 1907 MR#: [id number] Acct: [id number] Name: CHARLI PORRAS Rep #:[id number] : 1950 74 From: John Rod DO PCP: ABHISHEK ST Status:ADM IN Location: [facility] [id number]- 1 Reason for Visit Reason for Visit: [...] the patient to be placed in a long-term facility, we are awaiting pre-CERT #2 bacteriuria [...] 35 minutes Charges/Coding Visit Charges Inpatient E&M: 55764 Subs Hosp L2 10/18/24 1700 <Electronically signed by John Rod DO> Cosigner Signature (if applicable): CC: ~ Signed [facility] Work Phone: 1(798) 563-146106-17-2025 Progress note [facility] Medical Records Department [address] [place] [address] Progress Note - Hospitalist 10/17/24 1906 MR#: [id number] Acct: [id number] Name: CHARLI PORRAS Rep #:[id number] : 1950 74 From: John Rod DO PCP: ABHISHEK ST Status:ADM IN Location: [place] [address] Reason for Visit Reason for Visit: Diagnoses [...] wants the patient to be placedin a long-term facility, we are awaiting pre-CERT #2 bacteriuria [...] 35 minutes Charges/Coding Visit Charges Inpatient E&M: 27355 Subs Hosp L2 10/18/24 1709 Cosigner Signature (if applicable): CC: ~ Signed [facility]06-15-2025 Progress note Author John Viola [facility] Note Date/Time October 16, 2024 12:3 7pm [facility] Medical Records Department [address] [place] [address] Progress Note - Hospitalist 10/16/24 1234 MR#: [id number] Acct: [id number] Name: CHARLI PORRAS Rep #:[id number] : 1950 74 From: John Joaquinmanuel DO PCP: ABHISHEK ST Status:ADM IN Location: [place] [address] Reason for Visit Reason for Visit: Diagnoses [...] the patient to be placed in a long-term facility, we are awaiting pre-CERT #2 bacteriuria [...] 35 minutes Charges/Coding Visit Charges Inpatient E&M: 97390 Subs Hosp L2 10/16/24 1237 <Electronically signed by John Rod DO> Cosigner Signature (if applicable): CC: ~ Signed [facility] Work Phone: 1(806) 569-223906-15-2025 Progress note [facility] Medical Records Department [address] [place] [address] Progress Note - Hospitalist 10/16/24 1234 MR#: [id number] Acct: [id number] Name: CHARLI PORRAS Rep #:[id number] : 1950 74 From: John Rod DO PCP: ABHISHEK ST Status:ADM IN Location: [place] [address]- Reason for Visit Reason for Visit: Diagnoses [...] wants the patient to be placedin a long-term facility, we are awaiting pre-CERT #2 bacteriuria [...] 35 minutes Charges/Coding Visit Charges Inpatient E&M: 30323 [facility] Hosp L2 10/16/24 1237 Cosigner Signature (if applicable): CC: ~ Signed [facility]06-14-2025 Progress note Author John Rod [facility] Note Date/Time October 15, 2024 5:18 pm [facility] Medical Records Department [address] [place] [address] Progress Note - Hospitalist 10/15/24 9695 MR#: [id number] Acct: [id number] Name: WARDELLIOTTLARRYThaliaCHARLI Jagjit Rep #:[id number] : 1950 74 From: John Rod DO PCP: ABHISHEK ST Status:ADM IN Location: [place] [address] Reason for Visit Reason for Visit: Diagnoses [...] the patient to be placed in a long-term facility, we are awaiting pre-CERT #2 bacteriuria [...] 35 minutes Charges/Coding Visit Charges Inpatient E&M: 63794 Subs Hosp L2 10/15/241717 <Electronically signed by John Rod DO> Cosigner Signature (if applicable): CC: ~ Signed [facility] Work Phone: 1(855) 472-710706-14-2025 Progress note [facility] Medical Records Department [address] [place] [address] Progress Note - Hospitalist 10/15/241713 MR#: [id number] Acct: [id number] Name: CHARLI PORRAS Rep #:[id number] : 1950 74 From: John Rod DO PCP: ABHISHEK ST Status:ADM IN Location: [facility] [id number]- 1 Reason for Visit Reason for Visit: [...] wants the patient to be placedin a long-term facility, we are awaiting pre-CERT #2 bacteriuria [...] 35 minutes Charges/Coding Visit Charges Inpatient E&M: 87849 [facility] Hosp L2 10/15/24 0421 Cosigner Signature (if applicable): CC: ~ Signed [facility]06-13-2025 Progress note Author John Rod [facility] Note Date/Time October 14, 2024 6:55 pm [facility] Medical Records Department [address] [place] [address] Progress Note - Hospitalist 10/14/24 6886 MR#: [id number] Acct: [id number] Name: CHARLI PORRAS Rep #:[id number] : 1950 74 From: John Viola MARCOS PCP: ABHISHEK ST Status:ADM IN Location: [place] [id number] Reason for Visit Reason for Visit: Diagnoses Sepsis, unspecified organism (10/13/24) Acidosis, unspecified (10/13/24) Metabolic encephalopathy (10/13/24) Urinary tract infection, site not specified (10/13/24) Subjective Subjective Patient was seen and examined today, he is a poor informant, I reviewed his problem list and he does have a history of dementia. According to case management, patient's family wants him placed in a long-term facility. I obtained the patient's urine culture [...] % (Auto) 67.1, Lymph % (Auto) 21.5, Stephenson % (Auto) 6.6, Eos % (Auto) 2.9, [...] Clarity Turbid, Urine pH 6.0, Ur Specific [place] 1.020, Urine Protein 100 H, Urine Glucose [...] % (Auto) 61.0, Lymph % (Auto) 26.1, Stephenson % (Auto) 7.8, Eos % (Auto) 3.2, [...] by Interventional Radiology, consider consult. Reading Location: [place] [address] Physical Exam Const alert and no apparent [...] OT, family has requested placement in a long-term facility #8 lactic acidosis-corrected at this time I do not feel the patient has sepsis at this time or septic shock, I am not surewhat caused the patient's lactic acidosis. Total clinical time spent by myself addressing the patient's medical issues, reviewing all of his data, and collaborating with the patient's care team: 50 minutes Charges/Coding Visit Charges Inpatient E&M: 72340 Subs Hosp L3 10/14/241854 <Electronically signed by John Rod DO> Cosigner Signature (if applicable): CC: ~ Signed [facility] Work Phone: 1(183) 364-681006-13-2025 Progress note [facility] Medical Records Department [address] [place] [address] Progress Note - Hospitalist 10/14/24 1836 MR#: [id number] Acct: [id number] Name: CHARLI PORRAS Rep #:[id number] : 1950 74 From: John Rod DO PCP: ABHISHEK ST Status:ADM IN Location: [place] [address]- 1 Reason for Visit Reason for Visit: Diagnoses Sepsis, unspecified organism (10/13/24) Acidosis, unspecified (10/13/24) Metabolic encephalopathy (10/13/24) Urinary tract infection, site not specified (10/13/24) Subjective Subjective Patient was seen and examined today, he is a poor informant, I reviewed his problem list and he does have a history of dementia. According to case management, patient's family wants him placed in a long-term facility. I obtained the patient's urine culture [...] % (Auto) 67.1, Lymph % (Auto) 21.5, Stephenson % (Auto) 6.6, Eos % (Auto) 2.9, [...] Clarity Turbid, Urine pH 6.0, Ur Specific [place] 1.020, Urine Protein 100 H, Urine Glucose [...] % (Auto) 61.0, Lymph % (Auto) 26.1, Stephenson % (Auto) 7.8, Eos % (Auto) 3.2, [...] by Interventional Radiology, consider consult. Reading Location: [place] [address] Physical Exam Const alert and no apparent [...] OT, family has requested placement in a long-term facility #8 lactic acidosis-corrected at this time I do not feel the patient has sepsis at this time or septic shock, I am not surewhat caused the patient's lactic acidosis. Total clinical time spent by myself addressing the patient's medical issues, reviewing all of his data, and collaborating with the patient's care team: 50 minutes Charges/Coding Visit Charges Inpatient E&M: 30604 [facility] Hosp L3 10/14/241854 Cosigner Signature (if applicable): CC: ~ Signed [facility]06-13-2025 History and physical note Author Bisi Rivera [facility] Note Date/Time October 14, 2024 1:54 am [facility] Medical Records Department [address] [place] [address] H&P Exam - Hospitalist 10/13/24 2344 MR#: [id number] Acct: [id number] Name: CHARLI PORRAS Rep #:[id number] : 1950 74 From: Bisi Rivera DO PCP: ABHISHEK ST Status:ADM IN Location: [facility] HHV856- 1 HPI - General General Date of Admission: 10/13/24 Date of Service: 10/13/24 Chief Complaint: Altered mental status with recent UTI diagnosis HPI Narrative CHARLI PORRAS, is a 74 M who presented to the emergency department at [facility] on 10/13/2024 with his due to altered [...] fluid bolus given concern for volume overload. [facility] Medical History CKD (chronic kidney disease), stage III Insulin dependent diabetes mellitus Dementia Kidney disease Gout Dementia Diabetes HTN (hypertension) Home Medications ?Medication ?Instructions ?Recorded ?Last Taken ?Type allopurinol 100 mg tablet 100 mg PO DAILYCM 05/03/13 U nknown History gabapentin 800 mg tablet 800 mg PO TIDCM 05/03/13 Unk nown History yevruquf-ezb-wnuzn acid 0.4 1 ea PO DAILY 05/03/13 [...] % (Auto) 67.1, Lymph % (Auto) 21.5, Stephenson % (Auto) 6.6, Eos % (Auto) 2.9, [...] Clarity Turbid, Urine pH 6.0, Ur Specific [place] 1.020, Urine Protein 100 H, Urine Glucose [...] by Interventional Radiology, consider consult. Reading Location: [place] [address] Assessment & Plan Assessment/Plan (1) Sepsis: (2) [...] fluid overload Charges/Coding Visit Charges Inpatient E&M: 19510 Init Hosp L3 10/14/24 0152 <Electronically signed [...] DUARTE; Dr. Bisi Rivera DO ~* Signed [facility] Work Phone: 1(686) 657-585506-13-2025 Discharge summary Author Nick Coyle [facility] Note Date/Time October 14, 2024 12:0 6am [facility] Medical Records Department [address] [place] [address] Emergency Department Summary 10/13/24 MR#: [id number] Acct: [id number] Name: CHARLI PORRAS Rep #:[id number] : [...] oriented, grossly intact, sensation intact Psych: Cooperative [facility] Medical History Kidney disease Gout Dementia Diabetes HTN (hypertension) Home Medications ?Medication ?Instructions ?Recorded ?Last Taken ?Type allopurinol 100 mg tablet 100 mg PO DAILYCM 05/03/13 U nknown History gabapentin 800 mg tablet 800 mg PO TIDCM 05/03/13 Unk nown History lpzexcoc-ocu-cgyui acid 0.4 1 ea PO DAILY 05/03/13 [...] % (Auto) 67.1 Lymph % (Auto) 21.5 Stephenson % (Auto) 6.6 Eos % (Auto) 2.9 [...] Clarity Turbid Urine pH 6.0 Ur Specific [place] 1.020 Urine Protein 100 H Urine Glucose [...] by Interventional Radiology, consider consult. Reading Location: [place] [address] Discharge Plan Triage Chief Complaint: Complaint ED [...] CRNP [Primary Care Provider] - Print Language: Gabonese What to do if you have Problems For any increased pain, shortness of breath, bleeding, nausea or vomiting, chestpain, or any unexpected problems, contact your Primary Care Provider. Call [facility] ([phone]) or report to the closest Emergency Room. Call 911 if necessary. 10/14/24 0006 <Electronically signed by Nick Coyle DO> Cosigner Signature (if applicable): CC: MELY DUARTE ~ Signed [facility] Work Phone: 1(188) 114-950506-13-2025 History and physical note [facility] Medical Records Department [address] [place] [address] H&P Exam - Hospitalist 10/13/24 2344 MR#: [id number] Acct: [id number] Name: CHARLI PORRAS Rep #:[id number] : 1950 74 From: Bisi Rivera DO PCP: ABHISHEK ST Status:ADM IN Location: [place] [id number]- 1 HPI - General General Date of Admission: 10/13/24 Date of Service: 10/13/24 Chief Complaint: Altered mental status with recent UTI diagnosis HPI Narrative CHARLI PORRAS, is a 74 M who presented to the emergency department at [facility] on 10/13/2024 with his due to altered [...] fluid bolus given concern for volume overload. [facility] Medical History CKD (chronic kidney disease), stage III Insulin dependent diabetes mellitus Dementia Kidney disease Gout Dementia Diabetes HTN (hypertension) Home Medications ?Medication ?Instructions ?Recorded ?Last Taken ?Type allopurinol 100 mg tablet 100 mg PO DAILYCM 05/03/13 U nknown History gabapentin 800 mg tablet 800 mg PO TIDCM 05/03/13 Unk nown History fmefwsyv-kcj-kccar acid 0.4 1 ea PO DAILY 05/03/13 [...] % (Auto) 67.1, Lymph % (Auto) 21.5, Stephenson % (Auto) 6.6, Eos % (Auto) 2.9, [...] Clarity Turbid, Urine pH 6.0, Ur Specific [place] 1.020, Urine Protein 100 H, Urine Glucose [...] by Interventional Radiology, consider consult. Reading Location: [place] [address] Assessment & Plan Assessment/Plan (1) Sepsis: (2) [...] fluid overload Charges/Coding Visit Charges Inpatient E&M: 72075 Init Hosp L3 10/14/24 0152 Cosigner Signature [...] DUARTE; Dr. Bisi Rivera DO ~* Signed [facility]06-13-2025 History and physical note [facility] Medical Records Department [address] [place] [address] H&P Exam - Hospitalist 10/13/24 2344 MR#: [id number] Acct: [id number] Name: CHARLI PORRAS Rep #:[id number] : 1950 74 From: Bisi Rivera DO PCP: ABHISHEK ST Status:ADM IN Location: [address] 1 HPI - General General Date of Admission: 10/13/24 Date of Service: 10/13/24 Chief Complaint: Altered mental status with recent UTI diagnosis HPI Narrative CHARLI PORRAS, is a 74 M who presented to the emergency department at [facility] on 10/13/2024 with his due to altered [...] fluid bolus given concern for volume overload. [facility] Medical History CKD (chronic kidney disease), stage III Insulin dependent diabetes mellitus Dementia Kidney disease Gout Dementia Diabetes HTN (hypertension) Home Medications ?Medication ?Instructions ?Recorded ?Last Taken ?Type allopurinol 100 mg tablet 100 mg PO DAILYCM 05/03/13 U nknown History gabapentin 800 mg tablet 800 mg PO TIDCM 05/03/13 Unk nown History biiciocu-qqf-ziqnf acid 0.4 1 ea PO DAILY 05/03/13 [...] % (Auto) 67.1, Lymph % (Auto) 21.5, Stephenson % (Auto) 6.6, Eos % (Auto) 2.9, [...] Clarity Turbid, Urine pH 6.0, Ur Specific [place] 1.020, Urine Protein 100 H, Urine Glucose [...] by Interventional Radiology, consider consult. Reading Location: [place] [address] Assessment & Plan Assessment/Plan (1) Sepsis: (2) [...] fluid overload Charges/Coding Visit Charges Inpatient E&M: 42818 Init Hosp L3 10/14/24 0152 Cosigner Signature (if applicable): CC: MELY DUARTE; Dr. Bisi Rivera, DO~ Signed [facility]06-13-2025 Evaluation note* Diagnosis Onset Date Resolution Status [...] Visual hallucinations acute Sep tember 2024 10:57pm [facility] Work Phone: 1(391) 346-718006-13-2025 History and physical note Author Bisi Rivera [facility] Note Date/Time October 14, 2024 1:52 am [facility] Medical Records Department [address] [facility] [place] [address] H&P Exam - Hospitalist 10/13/24 2344 MR#: [id number] Acct: [id number] Name: CHARLI PORRAS Rep #:[id number] : 1950 74 From: Bisi Rivera DO PCP: ABHISHEK ST Status:ADM IN Location: [place] [id number] HPI - General General Date of Admission: 10/13/24 Date of Service: 10/13/24 Chief Complaint: Altered mental status with recent UTI diagnosis HPI Narrative CHARLI PORRAS, is a 74 M who presented to the emergency department at [facility] on 10/13/2024 with his due to altered [...] fluid bolus given concern for volume overload. [facility] Medical History CKD (chronic kidney disease), stage III Insulin dependent diabetes mellitus Dementia Kidney disease Gout Dementia Diabetes HTN (hypertension) Home Medications ?Medication ?Instructions ?Recorded ?Last Taken ?Type allopurinol 100 mg tablet 100 mg PO DAILYCM 05/03/13 U nknown History gabapentin 800 mg tablet 800 mg PO TIDCM 05/03/13 Unk nown History cbxemiht-wel-bqpnq acid 0.4 1 ea PO DAILY 05/03/13 [...] % (Auto) 67.1, Lymph % (Auto) 21.5, Stephenson % (Auto) 6.6, Eos % (Auto) 2.9, [...] Clarity Turbid, Urine pH 6.0, Ur Specific [place] 1.020, Urine Protein 100 H, Urine Glucose [...] by Interventional Radiology, consider consult. Reading Location: [place] [address] Assessment & Plan Assessment/Plan (1) Sepsis: (2) [...] fluid overload Charges/Coding Visit Charges Inpatient E&M: 02644 Init Hosp L3 10/14/24 0152 <Electronically signed by Bisi Rivera DO> Cosigner Signature (if applicable): CC: MELY DUARTE; Dr. Bisi Rivera DO~ Signed [facility] Work Phone: 1(655) [phone] Discharge summary [facility] Medical Records Department [address] [place] [address] Emergency Department Summary 10/13/24 MR#: [id number] Acct: [id number] Name: CHARLI PORRAS Rep #:[id number] : [...] oriented, grossly intact, sensation intact Psych: [facility] Medical History Kidney disease Gout Dementia Diabetes HTN (hypertension) Home Medications ?Medication ?Instructions ?Recorded ?Last Taken ?Type allopurinol 100 mg tablet 100 mg PO DAILYCM 05/03/13 U nknown History gabapentin 800 mg tablet 800 mg PO TIDCM 05/03/13 Unk nown History iudiubfn-wvt-msiav acid 0.4 1 ea PO DAILY 05/03/13 [...] % (Auto) 67.1 Lymph % (Auto) 21.5 Stephenson % (Auto) 6.6 Eos % (Auto) 2.9 [...] Clarity Turbid Urine pH 6.0 Ur Specific [place] 1.020 Urine Protein 100 H Urine Glucose [...] by Interventional Radiology, consider consult. Reading Location: [id number] Discharge Plan Triage Chief Complaint: Complaint ED [...] CRNP [Primary Care Provider] - Print Language: Gabonese What to do if you have Problems For any increased pain, shortness of breath, bleeding, nausea or vomiting, chestpain, or any unexpected problems, contact your Primary Care Provider. Call [facility] ([phone]) or report tothe closest Emergency Room. Call 911 if necessary. 10/14/24 0006 Cosigner Signature (if applicable): CC: MELY DUARTE ~ Signed [facility]06-12-2025 Radiology Diagnostic study note [facility] Imaging Services [address] [place] [id number] Abdomen/Pelvis without Cont MR#: [id number] Acct: [id number] Name: CHARLI PORRAS Rep #: [id number] : 1950 M 74 From: Lico Mckeon MD PCP: ABHISHEK ST Status: REG ER Study:Abdomen/Pelvis without Cont Date of Exa m: 10/13/24 Exam# [id number] Ordering Dr: Nick Batista DO PROCEDURE: ABDOMEN/PELVIS [...] by Interventional Radiology, consider consult. Reading Location: [id number] CC: MELY DUARTE; Dr. Nick Coyle DO ~ Regional Director Of Admissions: Signed [facility]06-12-2025 Discharge summary Author [facility] Note Date/Time October 14, 2024 12:0 6am [facility] Medical Records Department [address] [place] [address] Emergency Department Summary 10/13/24 MR#: [id number] Acct: [id number] Name: CHARLI PORRAS Rep #:[id number] : [...] oriented, grossly intact, sensation intact Psych: Cooperative [facility] Medical History Kidney disease Gout Dementia Diabetes HTN (hypertension) Home Medications ?Medication ?Instructions ?Recorded ?Last Taken ?Type allopurinol 100 mg tablet 100 mg PO DAILYCM 05/03/13 U nknown History gabapentin 800 mg tablet 800 mg PO TIDCM 05/03/13 Unk nown History cefwgcrr-ppt-ysrnz acid 0.4 1 ea PO DAILY 05/03/13 [...] % (Auto) 67.1 Lymph % (Auto) 21.5 Stephenson % (Auto) 6.6 Eos % (Auto) 2.9 [...] Clarity Turbid Urine pH 6.0 Ur Specific [place] 1.020 Urine Protein 100 H Urine Glucose [...] by Interventional Radiology, consider consult. Reading Location: [id number] Discharge Plan Triage Chief Complaint: Complaint ED [...] CRNP [Primary Care Provider] - Print Language: Gabonese What to do if you have Problems For any increased pain, shortness of breath, bleeding, nausea or vomiting, chestpain, or any unexpected problems, contact your Primary Care Provider. Call [facility] ([phone]) or report to the closest Emergency Room. Call 911 if necessary. 10/14/24 0006 <Electronically signed by Nick Coyle DO> Cosigner Signature (if applicable): CC: MELY DUARTE ~ Signed [facility] Work Phone: 1(450) 791-229104-22-2025 [facility]04-19-2025 History and physical note [facility] Medical Records Department [address] [place] [address] H&P Exam - Hospitalist 08/20/24 0220 MR#: [id number] Acct: [id number] Name: CHARLI PORRAS Rep #:[id number] : 1950 74 From: Saroj scott DO PCP: Care Physician,No Primary Status :ADM IN Location: ICU ICU01-1 HPI - General General Date of Admission: 08/20/24 Date of Service: 08/20/24 Chief Complaint: Worsening confusion with tremors and weakness HPI Narrative CHARLI PORRAS, is a 74 M who presented to [facility] ED on 08/20/2024 with worsening confusion with [...] and told me that he was at [facility]. However he could not answer any other [...] patient being moved over to the ICU. [facility] Medical History Kidney disease Gout Dementia Diabetes HTN (hypertension) Home Medications ?Medication ?Instructions ?Recorded ?Last Taken ?Type allopurinol 100 mg tablet 100 mg PO DAILYCM 05/03/13 U nknown History gabapentin 800 mg tablet 800 mg PO TIDCM 05/03/13 Unk nown History wdhzzbcn-bgk-sfnsm acid 0.4 1 ea PO DAILY 05/03/13 [...] (Auto) 87.2 H, Lymph % (Auto) 6.3 L,Stephenson % (Auto) 4.9, Eos % (Auto) 0.1, [...] Clarity Cloudy, Urine pH 6.0, Ur Specific [place] 1.010, Urine Protein 100 H, Urine Glucose [...] Three-vessel coronary calcification appears moderate. Reading Location: [id number] Assessment & Plan Assessment/Plan (1) Septic shock: (2) UTI (urinary tract infection): (3) Acute metabolic encephalopathy: PLAN: Plan Patient is a 74-year-old male who presented to [facility] ED on 08/20/2024 with worsening confusion with tremors and weakness. 1. Septic shock suspected secondary to UTI ? Admit under inpatient status to ICU. Vamp Presser consulted. Presentation seems most consistent with urosepsis [...] 75 minutes. Charges/Coding Visit Charges Inpatient E&M: 84099 Init Hosp L3 08/20/24 0347 Cosigner Signature [...] DO; No Primary Care Physician ~* Signed [facility]04-19-2025 Evaluation note* Diagnosis Onset Date Resolution Status Admit Date Acute metabolic encephalopathy acute August 20, 2024 3:15am Septic shock acute August 20, 2024 3:15am UTI (urinary tract infection) acute August 20, 2024 3:15am [facility] Work Phone: 1(655) 234-425804-19-2025 Evaluation note* Diagnosis Onset Date Resolution Status [...] diabetes mellitus inactive August 20, 2024 3:15am [facility] Work Phone: 1(120) 804-886604-19-2025 Evaluation note* Diagnosis Onset Date Resolution Status [...] diabetes mellitus inactive August 20, 2024 3:15am [facility] Work Phone: 1(172) 410-239604-19-2025 Evaluation note* Diagnosis Onset Date Resolution Status [...] tract infection) acute October 13, 2024 11:44pm [facility] Work Phone: 1(247) 493-195704-19-2025 History and physical note [facility] Note Date/Time August 20, 2024 5:3 9am [facility] Medical Records Department [address] [place] [address] H&P Exam - Hospitalist 08/20/24 0220 MR#: [id number] Acct: [id number] Name: CHARLI PORRAS Rep #:[id number] : 1950 74 From: Saroj scott DO PCP: Care Physician,No Primary Status :ADM IN Location: ICU ICU01-1 HPI - General General Date of Admission: 08/20/24 Date of Service: 08/20/24 Chief Complaint: Worsening confusion with tremors and weakness HPI Narrative CHARLI PORRAS, is a 74 M who presented to [facility] ED on 08/20/2024 with worsening confusion with [...] and told me that he was at [facility]. However he could not answer any other [...] patient being moved over to the ICU. [facility] Medical History Kidney disease Gout Dementia Diabetes HTN (hypertension) Home Medications ?Medication ?Instructions ?Recorded ?Last Taken ?Type allopurinol 100 mg tablet 100 mg PO DAILYCM 05/03/13 U nknown History gabapentin 800 mg tablet 800 mg PO TIDCM 05/03/13 Unk nown History gynevbbb-xav-hvoli acid 0.4 1 ea PO DAILY 05/03/13 [...] (Auto) 87.2 H, Lymph % (Auto) 6.3 L,Stephenson % (Auto) 4.9, Eos % (Auto) 0.1, [...] Procalcitonin 0.32 H 08/20/24 00:20: Urine Color Tsephanie, Urine Clarity Cloudy, Urine pH 6.0, Ur Specific [place] 1.010, Urine Protein 100 H, Urine Glucose [...] Three-vessel coronary calcification appears moderate. Reading Location: [id number] Assessment & Plan Assessment/Plan (1) Septic shock: (2) UTI (urinary tract infection): (3) Acute metabolic encephalopathy: PLAN: Plan Patient is a 74-year-old male who presented to [facility] ED on 08/20/2024 with worsening confusion with tremors and weakness. 1. Septic shock suspected secondary to UTI ? Admit under inpatient status to ICU. Vamp Presser consulted. Presentation seems most consistent with urosepsis [...] 74 minutes. Charges/Coding Visit Charges Inpatient E&M: 48539 Init Hosp L3 08/20/24 0347 <Electronically signed [...] DO; No Primary Care Physician ~* Signed [facility] Work Phone: 1(807) 753-452804-19-2025 Radiology Diagnostic study note [facility] Imaging Services [address] [place] [address] CTA Chest W/WO Contrast MR#: [id number] Acct: [id number] Name: CHARLI PORRAS Rep #: [id number] : 1950 M 74 From: Clay Garcia MD PCP: Care Physician,No Primary Status: REG ER Study:CTA Chest W/WO Contrast Date of Exam: 08/20/24 Exam# [id number] Ordering Dr: Dede Brown DO PROCEDURE: CTA [...] inferior vena cava filter suggested on the agricultural specialist views. Motion artifact significantly limits the evaluation. No large central or hilar saddle pulmonary embolism. Interlobar to subsegmental branches are not well evaluated. Thoracic aorta appears within limits. Three-vessel coronary calcification appears moderate. No pericardial or pleural effusion. Images of the upper abdomen appear unremarkable. [place] artifact from left shoulder replacement and anterior [...] Three-vessel coronary calcification appears moderate. Reading Location: [facility] CC: Kaushik Brown DO; No Primary Care Physician ~ Regional Director Of Admissions: Signed [facility]07-06-2023 Hospital Discharge instructions Additional Instructions Please follow-up with your doctor in 3 to 5 days return for any worsening of symptoms.[facility] Work Phone: [phone]) [phone] Discharge summary Author Tello Lynch [facility] June 02, 2022 12:17pm Note Date/Time June 02, 2022 1 2:00pm [address] [address] Discharge Summary Signed Patient: CHARLI PORRAS MR#: [id number] : 1950 Acct:[id number] Age/Sex: 72 / M ADM Date: Loc: 2T 2014-05 Date of Service: 3 Clinician: Tello Lynch MD cc: Ericka Cassidy DS: Providers Date of admission: 05/31/22 18:18 Primary care physician: Ericka Cassidy DS: Summary Hospital course: This is a 72-year-old white male with significant past medical history of morbidobesity, diabetes mellitus type 2, dementia, hyperlipidemia, hypertension and DVT who presented to [facility] with complaints of altered mental status. [...] MPV Neut % (Auto) Lymph % (Auto) Stephenson % (Auto) Eos % (Auto) Baso % (Auto) Neut # (Auto) Lymph # (Auto) Stephenson # (Auto) Eos # (Auto) Baso # [...] (Auto) 73.1 Lymph % (Auto) 16.2 L Stephenson % (Auto) 9.4 H Eos % (Auto) 0.9 Baso % (Auto) 0.4 Neut # (Auto) 6.0 Lymph # (Auto) 1.3 Stephenson # (Auto) 0.8 H Eos # (Auto) [...] MPV Neut % (Auto) Lymph % (Auto) Stephenson % (Auto) Eos % (Auto) Baso % (Auto) Neut # (Auto) Lymph # (Auto) Stephenson # (Auto) Eos # (Auto) Baso # [...] Tello Lynch Billing Billing Category Hospital Discharge: 65767 DC2 > 30 min Documented By: Tello Lynch MD 06/02/22 1056 Signed By: <Electronically signed by Tello Lynch MD> 06/02/22 1115 [facility] Work Phone: 1(595) 342-185901-30-2023 Progress note Author Barbara Gipson [facility] June 02, 2022 11:33am Note Date/Time June 02, 2022 1 1:[facility]am [facility] [address] [place] [address] Wound Care Progress Note Signed Patient: CHARLI PORRAS MR#: [id number] : 1950 Acct:[id number] Age/Sex: 72 / M ADM Date: Loc: 2T 2014-05 Date of Service: 3 Clinician: Barbara Gipson RN cc: Wound Care Progress Note - Wound Care Date of Admission: 05/31/22 18:18 Reason for Consult: buttocks Significant History: Medical history: Reports anemia, arthritis, dementia, diabetes, hypertension andrenal disease Additional Medical History: bundle branch block / dvt / [place] filter Surgical history: Reports adenoidectomy, cholecystectomy, knee [...] wounds every Thursday [ ] [Wound Protocol: S.STACKER STRAIGHTENER] Left Lateral Foot -Wound Type diabetic wound [...] Serous -Odor No Odor -Wound Bed Appearance [place],Peeling Skin -Length (cm) 12.0 -Width (cm) 12.0 [...] Per the patient, he follows with a pilot control operator helper in [place]; does not recallhis name. I educated the [...] wounds; patient instructed to follow up with pilot control operator helper outpatient Documented By: Barbara Gipson RN 06/02/22 1024 Signed By: <Electronically signed by Barbara Gipson RN> 06/02/22 1033 [facility] Work Phone: 1(166) [phone] History and physical note Author Naresh Sainz [facility] May 31, 2022 7:30pm Note Date/Time May 31, 2022 7 :25pm [address] [address] History & Physical Signed Patient: CHARLI PORRAS MR#: [id number] : 1950 Acct:[id number] Age/Sex: 72 / M ADM Date: [...] History: bundle branch block / dvt / [place] filter Surgical history: Reports adenoidectomy, cholecystectomy, knee [...] Cloudy Urine pH 6.0 (4.6-8.0) Ur Specific [place] 1.020 (1.001-1.035) Urine Protein 30 A (NEGATIVE) [...] Diabetes mellitus type: type 2 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 use:with mcc use Diabetes mellitus complication status: with neurologic complications Diabetes mellitus complication detail: with polyneuropathy Qualified Code(s): E11.42 - Type 2 diabetes mellitus with diabetic polyneuropathy; Z79.4 - exterminator helper termite (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 of insulin Code(s): E11.9 - [...] L 93 Billing Billing Category Inpatient Initial: 54006 IP3 High Documented By: Naresh Sainz DO 05/31/22 18 18 Signed By: <Electronically signed by Naresh Sainz DO> 05/31/22 1830 [facility] Work Phone: 1(450) 451-518412-21-2022 Progress note Author Armen Carl [facility] April 23, 2022 7:53am Note Date/Time April 23, 2022 7:53am [address] [address] Progress Note Signed Patient: CHARLI PORRAS MR#: [id number] : 1950 Acct:[id number] Age/Sex: 71 / M ADM Date: [...] (Auto) 69.3 Lymph % (Auto) 15.1 L Stephenson % (Auto) 11.9 H Eos % (Auto) 2.8 Baso % (Auto) 0.9 Neut # (Auto) 4.8 Lymph # (Auto) 1.1 Stephenson # (Auto) 0.8 H Eos # (Auto) [...] MPV Neut % (Auto) Lymph % (Auto) Stephenson % (Auto) Eos % (Auto) Baso % (Auto) Neut # (Auto) Lymph # (Auto) Stephenson # (Auto) Eos # (Auto) Baso # [...] MPV Neut % (Auto) Lymph % (Auto) Stephenson % (Auto) Eos % (Auto) Baso % (Auto) Neut # (Auto) Lymph # (Auto) Stephenson # (Auto) Eos # (Auto) Baso # [...] (Auto) 66.0 Lymph % (Auto) 18.2 L Stephenson % (Auto) 10.1 H Eos % (Auto) 4.7 H Baso % (Auto) 1.0 Neut # (Auto) 4.6 Lymph # (Auto) 1.3 Stephenson # (Auto) 0.7 Eos # (Auto) 0.3 [...] Dry, Intact, Normal Color, Normal Turgor and Turpin HEENT Exam Head: Present Normocephalic and Atraumatic [...] signed by Armen Carl MD> 04/23/22 0653 [facility] Work Phone: 1(273) 159-374212-20-2022 Consult note Author Mary Beth Landaverde [facility] April 22, 2022 12:21pm Note Date/Time April 22, 2022 10:13am [address] [address] Consult Note Signed with Sabrina Patient: CHARLI PORRAS MR#: [id number] : 1950 Acct:[id number] Age/Sex: 71 / M ADM Date: Loc: 3026-1 Date of Service: 2 Clinician: Mary Beth Landaverde NP cc: Ericka Cassidy ADDENDUM Extensive discussion with the patient's Ariadna who called my office personally to request a work-up for autoimmune encephalitis. Discussed with Ariadan the patient's confusion which has been present 08/2020, Patient was seen initially outpatient by Dr. Enriquez was diagnosed with MCI/mild dementia at that time scored a 20 out of 30 on a MoCA assessment. Patient was started on Gdyfnmd08 mg daily. Patient failed to follow-up outpatient, [...] an appoint with a neurologist established at [facility] in June, patient's instructed to keep this [...] present illness: 71-year-old white male presented to [facility] 04-19-2022 for acute onset of weakness/fever/confusion. The patient has past medical history of obesity, type2 diabetes, hypertension, CKD, history of DVT on oral anticoagulants, MCI and neuropathy. The patient has history of following in the [facility] for mild cognitive impairment last seen in [...] as stated General General: Present as per [facility] Past Medical/Surgical History Attestation statement: The following information was validated with the patient. Medical history: Reports anemia, arthritis, diabetes, hypertension and renal disease Additional Medical History: bundle branch block / dvt / [place] filter Surgical history: Reports adenoidectomy, cholecystectomy, knee [...] Lymph % (Auto) 15.1 L (24.0-44.0) % Stephenson % (Auto) 11.9 H (3.4-9.0) % Stephenson # (Auto) 0.8 H (0.20-0.70) K/uL Urine [...] Clear Urine pH 5.0 (4.6-8.0) Ur Specific [place] 1.015 (1.001-1.035) Urine Protein Negative (NEGATIVE) mg/dL [...] Acute (6) Chronic anticoagulation: Code(s): Z79.01 - care home (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 of anticoagulants Status: Acute (7) [...] baseline hx of MCI; will r/o acute DRIVE TESTER pathology -reviewed CTH report and noted NAD [...] <Electronically signed by Mary Beth Landaverde> 04/22/22 0928 [facility] Work Phone: 1(151) 722-476112-20-2022 Consult note Author Armen Carl [facility] April 22, 2022 7:39am Note Date/Time April 22, 2022 7:24am [facility] [address] [place] [address] Consult Note Signed Patient: CHARLI PORRAS MR#: [id number] : 1950 Acct:[id number] Age/Sex: 71 / M ADM Date: [...] History: bundle branch block / dvt / [place] filter Surgical history: Reports adenoidectomy, cholecystectomy, knee [...] Dry, Intact, Normal Color, Normal Turgor and Turpin HEENT Exam Head: Present Normocephalic and Atraumatic [...] <Electronically signed by Armen Carl MD> 04/22/2239 [facility] Work Phone: 1(283) 164-131612-19-2022 Progress note Author Barbara Gipson [facility] April 21, 2022 11:50am Note Date/Time April 21, 2022 11:49am [place] [address] Wound Care Progress Note Signed Patient: CHARLI PORRAS MR#: [id number] : 1950 Acct:[id number] Age/Sex: 71 / M ADM Date: Loc: 3T 3026-1 Date of Service: 2 Clinician: Barbara Gipson RN cc: Wound Care Progress Note - Wound Care Date of Admission: 04/19/22 05:52 Reason for Consult: coccyx wound Significant History: Medical history: Reports anemia, arthritis, diabetes, hypertension and renal disease Additional Medical History: bundle branch block / dvt / [place] filter Surgical history: Reports adenoidectomy, cholecystectomy, knee [...] Date Recorded By Document 04/21/22 10:38 WATKTAS [id number] 04/21/22 10:39 WATKTAS 04/21/22 10:38 Incision/Wound/Dressing Assessment & Care [ ] Re-assess and measure wounds every Thursday [ ] [Wound Protocol: S.STACKER STRAIGHTENER] Left Ishium -Wound Type Abrasion -Comment friction injury -Drainage Amount None -Odor No Odor -Wound Bed Appearance Turpin,Red -Length (cm) 3.0 -Width (cm) 5.0 -Depth (cm) 0.1 -Margin Description Indistinct -Surrounding Tissue Appearance Dark Red -Surrounding Tissue Temperature Warm -Dressing Status Open to Air -Irrigant Solution Soap and Water -Skin Cream/Lotion Calazyme Current Interventions & Plan: Patient resting in bed in semifowlers position. Alert; states he's leaving and his left to checkout; knows he is at [facility] but seems confused. Oxygen via nasal cannula; [...] signed by Barbara Gipson RN> 04/21/22 1050 [facility] Work Phone: 1(679) 653-708712-17-2022 History and physical note Author Judy Boo [facility] April 19, 2022 7:12pm Note Date/Time April 19, 2022 7:12pm [facility] [address] [place] [address] History & Physical Signed Patient: CHARLI PORRAS MR#: [id number] : 1950 Acct:[id number] Age/Sex: 71 / M ADM Date: [...] (Recent tremors); Absent convulsions, dizziness or headache(s) [facility] Past Medical/Surgical History Attestation statement: The following information was validated with the patient. 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 Status: Acute (7) [...] or Rubs Billing Billing Category Observation Initial: 68706 O3 High Documented By: Judy Boo MD 04/19/221803 Signed By: <Electronically signed by Judy Boo MD> 04/19/221811 [facility] Work Phone: discharge summary Author Verónica Atkinson [facility] April 23, 2022 11:07am Note Date/Time April 23, 2022 11:01am [facility] [address] [place] [address] Discharge Summary Signed Patient: CHARLI PORRAS MR#: [id number] : 1950 Acct:[id number] Age/Sex: 71 / M ADM Date: [...] follow-up with his already established neurologist at [facility], they agree to keep appointment in June [...] medication (5) Chronic anticoagulation: Code(s): Z79.01 - care home (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 of anticoagulants Status: Chronic Assessment/Plan: [...] it. Patient does have a neurologist at [facility] and agrees to keep already scheduled appointment [...] MPV Neut % (Auto) Lymph % (Auto) Stephenson % (Auto) Eos % (Auto) Baso % (Auto) Neut # (Auto) Lymph # (Auto) Stephenson # (Auto) Eos # (Auto) Baso # [...] (Auto) 66.0 Lymph % (Auto) 18.2 L Stephenson % (Auto) 10.1 H Eos % (Auto) 4.7 H Baso % (Auto) 1.0 Neut # (Auto) 4.6 Lymph # (Auto) 1.3 Stephenson # (Auto) 0.7 Eos # (Auto) 0.3 [...] MPV Neut % (Auto) Lymph % (Auto) Stephenson % (Auto) Eos % (Auto) Baso % (Auto) Neut # (Auto) Lymph # (Auto) Stephenson # (Auto) Eos # (Auto) Baso # [...] MPV Neut % (Auto) Lymph % (Auto) Stephenson % (Auto) Eos % (Auto) Baso % (Auto) Neut # (Auto) Lymph # (Auto) Stephenson # (Auto) Eos # (Auto) Baso # [...] improvement Instructions 1:: followup with neurology at [facility] as already scheduled Discharge Instructions Activity: increase [...] Verónica Atkinson Billing Billing Category Observation Discharge: 05526 OD Documented By: BRANT Cabrera 04/23/22 0830 Signed By: <Electronically signed by BRANT Atkinson> 04/23/[address] [place] [address] Work Phone: discharge summary Author Jocelyn Polk [facility] Note Date/Time October 19, 2024 3:29 pm [facility] Medical Records Department [address] [place] [address] Instructions for Home/Discharge Instructions 10/19/24 1513 MR#: [id number] Acct: [id number] Name: CHARLI PORRAS Rep #:[id number] : [...] DO; Dr. John Rod DO ~ Signed [facility] Work Phone: Discharge summary Author Mao Muse [facility] Note Date/Time January 10, 2025 12:19pm [facility] Medical Records Department [address] [place] [address] Transfer to Extended Care MR#: [id number] Acct: [id number] Name: CHARLI PORRAS Rep #:[id number] : 1950 74 From: Mao Justin PCP: ABHISHEK ST Status:ADM IN Certification of patient admission REQUIRED AT TIME OF ADMISSION. I CERTIFY THAT POST-HOSPITAL ECF SERVICES ARE REQUIRED TO BE GIVEN ON AN IN-PATIENT BASIS BECAUSE OF THE ABOVE NAMED PATIENT'S NEED FOR LONG TERM CARE ON A CONTINUING BASIS FOR THE [...] antipsychotic medications: [facility]. He denies burning pain/acute contact [...] an outpatient. PT and OT and social welfare administrator. #9. Hypothyroidism: continue patient on levothyroxine regimen. [...] in before D/C Order can be placed): Assisted Facility 01/10/251218 <Electronically signed by Mao Muse MD> Cosigner Signature (if applicable): CC: MELY DUARTE; Dr. Ute Hancock MD ~ [facility] Work Phone: Discharge summary Author Mao Muse [facility] Note Date/Time January 10, 2025 12:23pm [facility] Medical Records Department [address] [place] [address] Discharge Summary 01/10/251218 MR#: [id number] Acct: [id number] Name: CHARLI PORRAS Rep #:[id number] : 1950 74 From: Mao Justin PCP: ABHISHEK ST Status:ADM IN Location: DE3 AT408-4 Providers Date of Admission: 01/06/25 Date of [...] an outpatient. PT and OT and social welfare administrator. #9. Hypothyroidism: continue patient on levothyroxine regimen. [...] tablet 100 mg PO DAILYCM gout 05/03/13 vxdekvoo-sat-mkdnm acid 0.4 mg-lycopene 300 mcg-lutein 250 mcg [...] in before D/C Order can be placed): Assisted Facility Charges/Coding Visit Charges Inpatient E&M: 21061 Disch Hosp >30min 01/10/25 1223 <Electronically signed by Mao Muse MD> Cosigner Signature (if applicable): CC: MELY DUARTE; Dr. Mao Muse MD~ Signed [facility] Work Phone: Evaluation note* Diagnosis Onset Date Resolution Status Acute confusion acute Acute UTI acute [facility] Work Phone: evaluation note* Diagnosis Onset Date Resolution Status Abdominal pain acute Acute confusion acute Acute UTI acute Candiduria acute Morbid obesity acute Neuropathy acute Benign hypertension chronic Chronic anticoagulation architectural designer jarrod Diabetes mellitus chronic Hyperlipidemia chronic [facility] Work Phone: evalobdiob note* Diagnosis Onset Date Resolution Status Morbid obesity acute Abdominal pain resolved Acute confusion resolved Acute UTI resolved Candiduria resolved Acute UTI acute Encephalopathy acute Morbid obesity acute [facility] Work Phone: evaluation noteNo assessment information available [facility] Work Phone: Hospital Discharge instructionsAdditional Instructions Advised change tramadol to 50 mg 3 times daily as needed for severe pain [facility]: [facility] Work Phone: Progress note Author Barbara Gipson [facility] April 23, 2022 12:41pm Note Date/Time April 23, 2022 12:41pm [facility] [address] [place] [address] Wound Care Progress Note Signed Patient: CHARLI PORRAS MR#: [id number] : 1950 Acct:[id number] Age/Sex: 71 / M ADM Date: Loc: 2T 2004-05 Date of Service: 2 Clinician: Barbara Gipson RN cc: Wound Care Progress Note - Wound Care Date of Admission: 04/19/22 05:52 Reason for Consult: coccyx wound Significant History: Medical history: Reports anemia, arthritis, diabetes, hypertension and renal disease Additional Medical History: bundle branch block / dvt / [place] filter Surgical history: Reports adenoidectomy, cholecystectomy, knee [...] Date Recorded By Document 04/23/22 11:36 WATKTAS [id number] 04/23/22 11:38 WATKTAS 04/23/22 11:36 Incision/Wound/Dressing Assessment & Care [ ] Re-assess and measure wounds every Thursday [ ] [Wound Protocol: S.STACKER STRAIGHTENER] Right Buttock -Wound Type Abrasion -Drainage Amount None -Odor No Odor -Wound Bed Appearance Red,Peeling Skin -Length (cm) 2.0 -Width (cm) 1.0 -Depth (cm) 0.1 -Margin Description Indistinct -Surrounding Tissue Appearance Turpin -Surrounding Tissue Temperature Warm -Dressing Status Open to Air -Irrigant Solution Soap and Water -Skin Cream/Lotion Calazyme Left Ishium -Wound Type Abrasion -Drainage Amount None -Odor No Odor -Wound Bed Appearance Red,Peeling Skin -Length (cm) 3.0 -Width (cm) 2.0 -Depth (cm) 0.1 -Margin Description Indistinct -Surrounding Tissue Appearance Turpin -Surrounding Tissue Temperature Warm -Dressing Status Open [...] signed by Barbara Gipson RN> 04/23/22 1141 [facility] Work Phone: reason for referral (narrative)No reason for referral information available[facility] Work Phone: Hospital Course Note [facility] 1E MED SURG [address] [facility] [address] Dept: [phone] Loc: [phone] Adult Hip and Knee Reconstruction Service Patient [...] April 19, 2 022 3:33pm Power of Loan Operations Specialist No April 19, 2022 3:33pm Tissue Donor No April 19, 2 022 3:33pm Advance Directive Response Recorded Date/ Time Advance Directives No May 31, 2022 6:53pm Living Will No May 31 6:53pm Organ Donor No May 31 6:53pm Power of Loan Operations Specialist No May 31, 2022 6:53pm Relationship Ariadna () cell phone [phone] June 01, 2022 1:07pm Tissue Donor No May 31 6:53pm Advance Directive Response Recorded Date/ Time Living Will No November 06, 2022 2 :32pm Power of Loan Operations Specialist No November 06, 2022 2:32pm Advance Directive Response Recorded Date/ Time Living Will No August 20, 2024 12:00am Do you have a Healthcare Power of Loan Operations Specialist? No August 20, 2024 12:00am Advance Directive Response Recorded Date/ Time Do you have a Healthcare Pow er of Loan Operations Specialist? Yes October 13, 2024 8:30pm Name of Medical Power of Loan Operations Specialist Ariadna daugherty October 13, 2024 8:30pm Living Will No August 20, 2024 12:00am Do you have a Healthcare Pow er of Loan Operations Specialist? No August 20, 2024 12:00am Advance Directive Response Recorded Date/ Time Do you have a Healthcare Pow er of Loan Operations Specialist? No October 14, 2024 2:17am Name of Medical Power of Loan Operations Specialist Ariadna daugherty October 13, 2024 8:30pm Living Will No August 20, 2024 12:00am Do you have a Healthcare Pow er of Loan Operations Specialist? No August 20, 2024 12:00am Advance Directive Response Recorded Date/ Time Do you have a Healthcare Pow er of Loan Operations Specialist? No October 14, 2024 2:17am Name of Medical Power of Loan Operations Specialist Ariadna daugherty October 13, 2024 8:30pm Do you have a Healthcare Pow er of Loan Operations Specialist? No January 06, 2025 6:17pm Advance Directive Response Recorded Date/ Time Do you have a Healthcare Pow er of Loan Operations Specialist? No October 14, 2024 2:17am Name of Medical Power of Loan Operations Specialist Ariadna daugherty October 13, 2024 8:30pm Do you have a Healthcare Pow er of Loan Operations Specialist? No January 06, 2025 11:46pm Chief Complaint [...] section and content) DATE CREATED AUTHOR 02/10/2019 [facility] DATE CREATED AUTHOR AUTHOR'S ORGANIZ ATION 05/12/2019 [facility] DATE CREATED AUTHOR AUTHOR'S ORGANIZ ATION 07/18/2020 [facility] ([place]) DATE CREATED AUTHOR AUTHOR'S ORGANIZ ATION 03/15/2022 [facility] DATE CREATED AUTHOR AUTHOR'S ORGANIZ ATION 06/11/2022 [facility] DATE CREATED AUTHOR AUTHOR'S ORGANIZ ATION 07/10/2022 [facility] DATE CREATED AUTHOR AUTHOR'S ORGANIZ ATION 01/10/2023 [facility] ([place]) DATE CREATED AUTHOR AUTHOR'S ORGANIZ ATION 01/19/2025 [facility] Care Teams (unrecognized sec tion and [...] Active Sta rt: August 21, 2024 Dr. Rentao Mcginnis MD Other Provider Active Star t: [...] Active Armen Carl MD Other Provider Active [facility] Other Provider Active Judy Boo MD Attending Provider Active Team Status: Active Member Role Status Anoop Cassidy Primary Care Provider Active Thompson Hayden MD Emergency Provider Active Verito Devi MD Admit Provider, Other Provider Acti ve Charisse Valencia MD Other Provider Active Armen Carl MD Other Provider Active [facility] Other Provider Active Mary Beth Landaverde [...] Active Armen Carl MD Other Provider Active [facility] Other Provider Active BRANT aCbrera Attending Provider Active Team Status: Inactive Member Role Status Anoop Cassidy Primary Care Provider Active Thompson Hayden MD Emergency Provider Active Verito Devi MD Admit Provider, Attending Provider Active Charisse Valencia MD Other Provider Active Armen Carl MD Other Provider Active [facility] Other Provider Active Team Status: Active Member Role Status Anoop Stein Primary Care Provider Active Team Status: Active Member Role Status Anoop Cassidy Primary Care Provider Active Thompson Hayden MD Emergency Provider Active Naresh Sainz , Admit Provider, Other Provider Active Tello Lynch MD Attending Provider Active Team Status: Active Member Role Status Dates Ericka Cassdiy Primary Care Provider Active Thompson Hayden MD Emergency Provider Active Naresh Sainz , Admit Provider, Attending Provider, Other Provider Active Team Status: Inactive Member Role Status Anoop Hayden MD Emergency Provider Active Naresh Sainz , Admit Provider, Attending Prov ider Active Devika Stein Primary Care Provider Active [facility] Other Provider Active Team Status: Active [...] Member Role/Relationship Status Dates ABHISHEK ST , MELY Primary Care Provider Active Start: October 14, [...] BE BASED ON THE PRIMARY CLINICAL RECORDS. [facility] provides no warranty or guarantee of the accuracy or completeness of information in this document.
--- NOTE | 2025-01-20 02:43 | EDS_ITS ---
HPI History of Present Illness Chief Complaint: Weakness Informant: patient, spouse/S.O. and EMS Narrative Narrative: Patient is a 74-year-old male with past medical history of hypertension hyperlipidemia hypothyroidism Parkinson's disease and insulin-dependent di abetes. He was recently admitted to the hospital secondary to generalized weakness and then sent to rehab. states that he just returned home today. She states that when he returned home he was able to ambulate throughout the house. However as the day past he began to feel tired and he laid down to take a nap. She states she went to check on him and when she tried to get him up he was too weak to stand on his own. states that last time this occurred he had an infection and therefore with concern for repeat illness and potential need for repeat rehab/retirement placement EMS was called and he was brought in for evaluation [facility] Medical History BPH (benign prostatic hyperplasia) Hypothyroidism Anxiety and depression Chronic anemia Parkinsons disease HLD (hyperlipidemia) CKD (chronic kidney disease), stage III Insulin dependent diabetes mellitus Dementia Gout Diabetes HTN (hypertension) Home Medications ?Medication ?Instructions ?Recorded ?Last Taken ?Type allopurinol 100 mg tablet 100 mg PO DAILYCM gout 05/03 Unknown History donepezil 10 mg tablet 10 mg PO QHS dementia Unknown History dulaglutide 3 mg/0.5 mL 3 mg subcut QWEEK diabetes 1 05/18/23 Unknown History subcutaneous pen injector (Trulicity) duloxetine 60 mg capsule,delayed 60 mg PO DAILY depres francis 03/18/24 Unknown History release empagliflozin 25 mg tablet 25 mg PO DAILY diabetes Unknown History (Jardiance) ezetimibe 10 mg tablet 10 mg PO DAILY cholesterol 1 05/18/23 Unknown History glipizide 10 mg tablet, extended 10 mg PO DAILY diabet es 03/18/24 Unknown History release 24 hr levothyroxine 50 mcg tablet 50 mcg PO DAILY thyroid Unknown History lisinopril 2.5 mg tablet 2.5 mg PO DAILY blood pressu re 03/18/24 Unknown History pramipexole 0.125 mg tablet 0.125 mg PO BID parkinsons 03/18/24 Unknown History insulin glargine 100 unit/mL (3 75 unit subcut QPM gerard betes 10/13/24 Unknown History mL) subcutaneous pen (Basaglar KwikPen U-100 Insulin) tamsulosin 0.4 mg capsule 0.4 mg PO DAILY urine flow 0 10/15/24 Unknown History gabapentin 800 mg tablet 400 mg (1/2 x 800 mg) PO TID CM 10/19/24 Unknown Rx nerve pain #45 tabs quetiapine 50 mg tablet 50 mg PO DAILY mental health 01/07/25 Unknown History trazodone 50 mg tablet 100 mg PO QHS 01/07/25 Unkno wn History acetaminophen 325 mg tablet 650 mg (2 x 325 mg) PO Q4H PRN PRN 01/10/25 Unknown Rx Fever, pain -02/10 #0 tabs insulin lispro 100 unit/mL See Protocol subcut ACHS #0 mL 01/10/25 Unknown Rx subcutaneous pen (Humalog KwikPen (U-100) Insulin) sennosides 8.6 mg-docusate sodium 2 tab PO BID #0 tabs 01/10/25 Unknown Rx 50 mg tablet (Stimulant Laxative Plus) tramadol 50 mg tablet 50 mg PO TID pain 20 days #6 0 tabs 01/10/25 Unknown Rx Allergy/AdvReac Type Severity Reaction Status Date / Time ibuprofen AdvReac Abd Verified 01/06/25 18:17 cramps/diarrhea Family History Mother CVA (cerebral vascular accident) Heart disease Father CVA (cerebral vascular accident) Heart disease Surgical History History of left shoulder replacement H/O knee surgery Social History household members: spouse housing: house current occupational status: retired Smoking Status: Never smoker alcohol intake: never substance use type: does not use ROS ROS ED Constitutional Constitutional ED: Reports other Details: Positive fatigue ; Denies chills or fever(s) Eyes Eyes: Denies change in vision ENT ENT ED: Denies rhinorrhea or sore throat Cardiovascular Cardiovascular: Denies chest pain Respiratory/Chest Respiratory/Chest: Denies cough or dyspnea Gastrointestinal Gastrointestinal: Denies abdominal pain, diarrhea, nausea or vomiting Genitourinary Genitourinary ED: Denies dysuria Musculoskeletal Musculoskeletal: Denies myalgias Integumentary Reports rash and other Details: reports history of cutaneous yeast infections Neurologic Neurologic: Reports weakness; Denies headache(s) Hematologic/Lymphatic Hematologic/Lymphatic: Denies easy bleeding or easy bruising EXAM Physical Exam Const Vital Signs: 01/20/25 00:22 01/20/25 00:22 01/20/25 00:31 Temperature 97.7 F L 97.9 F Temperature Source Oral Oral Pulse Rate 67 67 Respiratory Rate 12 16 Respiratory Effort Normal Non-Labored Respiratory Pattern Normal Blood Pressure 80/50 L 114/59 L Blood Pressure Mean 60 77 Pulse Ox 98 98 Oxygen Delivery Method Room Air Room Air 01/20/25 01:31 01/20/25 02:00 Temperature 97.5 F L 97.5 F L Temperature Source Oral Oral Pulse Rate 66 66 Respiratory Rate 16 17 Respiratory Effort Respiratory Pattern Blood Pressure 118/61 112/55 L Blood Pressure Mean 80 74 Pulse Ox 99 94 Oxygen Delivery Method Room Air Room Air Positive well nourished, well developed and obese General Appearance ED: well developed; Negative for pallor Nutritional Appearance: obese HEENT Reports dry mucous membranes HEENT Narrative: Normocephalic atraumatic No tongue or lip swelling no oral lesions no airway edema or compromise; no secondary findings in the posterior pharynx to suggest infection Mucous membranes are dry and tacky Mouth ED: Yes dry mucous membranes Mouth: dry mucous membranes Eyes PERRL and EOMs intact bilaterally General Eye ED: Negative for pale conjunctiva or scleral icterus Neck supple Neck Narrative: No nuchal rigidity or meningeal signs Chest Wall palpation of chest normal Resp normal respiratory effort and clear to auscultation bilaterally Resp Narrative: Breath sounds are diminished throughout but overall clear to auscultation without signs of respiratory distress Cardio regular rate and regular rhythm Rate: other Other Details: Radial and carotid pulses are equal and symmetric GI normal to inspection, nondistended, normoactive bowel sounds, non-tender, non- distended and no masses GI Narrative: No voluntary guarding or rigidity or pulsatile mass Auscultation: normoactive bowel sounds Palpation: soft Narrative: There is milky urine from the urethral meatus noted No testicular swelling or masses No surrounding soft tissue findings to suggest Ryan's gangrene Extremity Extremity Narrative: Patient has chronic stasis changes to bilateral lower legs secondary to diabetes as well as chronic lower extremity edema Negative Homans' sign bilaterally No bony deformity or joint effusion All compartments are soft and compressible going against compartment syndrome Neuro oriented x3, CN's II-XII intact bilaterally and no sensory deficits noted Neuro Narrative: GCS of 14; patient is resting with his eyes closed but will awake to voice Cranial nerves II through XII are grossly intact without focal neurologic defici t Sensorium / Orientation: alert Psych mental status grossly normal Skin No skin turgor normal Skin Narrative: Capillary refill is less than 3 seconds Skin turgor is increased consistent with dehydration There is a skin fold breakdown along the inguinal region consistent with cutaneous candidiasis There is a recurrent/chronic stage I pressure ulcer in the sacral cubitus region without surrounding secondary soft tissue skin changes to suggest infection General Skin Exam: Negative for jaundice or pallor MDM MDM MDM Narrative Medical decision making narrative: Patient arrived to the ER afebrile but was hypotensive at 80/50. He is slightly obtunded with GCS of 14 but will wake to voice and is protecting his airway. He is at his baseline mental status per and there is no obvious focal neurologic deficit. Therefore with a stable airway there is no need for emergent intubation and with no focal deficit there is no need for a stroke alert. With his hypotension there is concern for systemic infection/sepsis and based on patient's history there is concern for potential UTI as reports has had these in the past leading to increased weakness. Basic blood work is obtained that shows no leukocytosis or left shift. There is no signs of acute kidney injury. His creatinine is slightly elevated but chart review reveals this is near baseline. Electrolytes revealed no clinically significant findings other. Patient is on Synthroid and his TSH is within normal range going against myxedema coma. The urine sample does show changes concerning for infection which would correlate with his physical exam. Secondary to this urine was sent for culture and he was started on Rocephin. With hypotension upon arrival IV fluids were started. Patient was fluid responsive and had improvement of his blood pressure. Chest x-ray component revealed no obvious lung pathology such as pneumonia. Therefore at this time the patient does not have laboratory findings to suggest sepsis and his acute hypotension has improved with IV hydration. However his urine sample shows changes concerning for infection and with his contaminant weakness he is not able to ambulate and therefore not safe for discharge home as he cannot perform his activities of daily living. Therefore the case was discussed with the hospitalist who agrees to accept the patient for continued monitoring and care. and patient were informed that he may need readmitted to the retirement/rehab center if he does not have improvement of his symptoms over the next 2 days after treatment. Both are agreeable to the plan of care. History & Record Review Discussion w/independent historian: Patient and Significant other Lab Data Attestation: I reviewed the patient's lab results. Labs: Laboratory Results - last 24 hr 01/20/25 01/20/25 00:43 01:06 WBC 7.2 RBC 3.48 L Hgb 10.6 L Hct 32.7 L MCV 94.0 MCH 30.5 MCHC 32.4 RDW Std Deviation 52.3 H RDW Coeff of Veronica 15.2 H Plt Count 121 L MPV 9.2 Immature Gran % (Auto) 1.000 H Neut % (Auto) 60.8 Lymph % (Auto) 26.4 Falls % (Auto) 6.9 Eos % (Auto) 4.2 Baso % (Auto) 0.7 Absolute Neuts (auto) 4.4 Absolute Lymphs (auto) 1.89 Nucleated RBC % 0 Sodium 135 Potassium 3.9 Chloride 103 Carbon Dioxide 22.6 Anion Gap 10 BUN 14 Creatinine 1.83 H Estim Creat Clear Calc 46.86 L Est GFR (MDRD) Non-Af 38 L BUN/Creatinine Ratio 7.8 L Glucose 239 H Lactic Acid 3.2 H* Calcium 8.1 Magnesium 2.1 Total Bilirubin 0.46 Direct Bilirubin 0.22 AST 22 ALT 23 Alkaline Phosphatase 57 Ammonia 15.6 L Total Protein 5.9 Albumin 3.1 L Globulin 2.8 Procalcitonin 0.14 H TSH 2.430 Urine Color Yellow Urine Clarity Cloudy Urine pH 6.0 Ur Specific [place] 1.015 Urine Protein 100 H Urine Glucose (UA) 1000 H Urine Ketones Negative Urine Occult Blood 250 H Urine Nitrite Negative Urine Bilirubin Negative Urine Urobilinogen Normal Ur Leukocyte Esterase 500 H Urine RBC 5-10 SEEN Urine WBC 50-100 SEEN Ur Squamous Epith Cells 0 SEEN Ur Renal Epithelial Cell 5-10 SEEN Urine Bacteria 2+ Urine Mucus 0 SEEN Radiography Diagnostic Testing: Clinical Impression(s) from Imaging Studies Chest X-Ray 01/20/25 01:16 IMPRESSION: Interval appearance of mild bilateral basilar atelectatic pulmonary changes. Reading Location: [place] [id number] Chest x-ray as interpreted by the emergency medicine physician reveals bibasilar atelectasis without acute infiltrate or pneumothorax Management Discussion w/another healthcare provider: Hospitalist Discharge Plan Dx/Rx/DC Orders Clinical Impression: Physical debility, Acute encephalopathy, UTI (urinary tract infection), Inability to walk, Hypothyroidism, Insulin dependent diabetes mellitus, Parkinson's disease Disposition Disposition: Acute Care Hospital [facility] Discharge Date/Time: 01/20/25 03:36
[2025-01-20 04:21] LABS: Reflex Lactate? Y
[2025-01-20 05:05] LABS: Hematocrit 33.1 % (40-54); Hemoglobin 10.7 g/dL (13.0-16.5); Immature Granulocytes Count 0.070 X10^3/uL (0.0-0.0); Mean Corp Hgb Conc 32.3 g/dL (32-36); Mean Corpuscular Volume 93.5 fL (80-94); Mean Platelet Vol. 8.9 fl (6.2-12.0); NRBC Flagged by Analyzer 0 % (0-5); Platelet Count 106 K/mm3 (150-450); RBC Distribution Width CV 15.2 % (11.6-14.6); RBC Distribution Width SD 52.1 fl (35.1-43.9); Red Blood Count 3.54 M/mm3 (4.6-6.2); White Blood Count 7.6 K/mm3 (4.4-11.0)
[2025-01-20 05:40] LABS: Troponin T High Sensitivity 38 ng/L (<=22)
[2025-01-20 05:55] LABS: AST(SGOT) 22 U/L (<=37); Alanine Aminotransfer ALT/SGPT 21 U/L (<=46); Albumin, Serum 3.0 g/dL (3.4-4.8); Alkaline Phosphatase 56 U/L (40-129); Anion Gap 11 (5-15); BUN 13 mg/dL (4-19); BUN/Creat Ratio 8.2 RATIO (10-20); Calcium,Total 7.8 mg/dL (7.6-11.0); Carbon Dioxide 19.9 mmol/L (21.0-32.0); Chloride 106 mmol/L (98-108); Estimated Creatinine Clearance 52.44 ml/min (50-250); Globulin 2.7 g/dL (2.2-4.2); Glucose 142 mg/dL (70-99); Potassium 3.9 mmol/L (3.3-5.1)
[2025-01-20 07:25] LABS: Troponin T High Sens 2 HR 37 ng/L (<=22)
[2025-01-20] MEDS: Senna/Docusate Sodium 1 Tablet 2 TABLET PO ×2 (09:26→23:00)
[2025-01-20] MEDS: Pramipexole Di-HCl 0.125 MG Tablet PO ×2 (09:26→22:58)
[2025-01-20 09:45] LABS: Troponin T High Sens 4 HR 37 ng/L (<=22)
--- NOTE | 2025-01-20 09:57 | CASEMGMT ---
RN CM to the pt's room at this time for readmission chart review. Pt alone in the room as the is not at bedside. Pt has a hx of dementia and is currently disoriented. TC to the pt's , Ariadna, at this time. No answer, VM left with request for return call.
[2025-01-20] MEDS: Mineral Oil/Petrolatum Cr 1.75oz Bottle 1 APPLIC TOPICAL ×2 (10:56→22:59)
--- NOTE | 2025-01-20 10:56 | PCM.PROGNOTE ---
Subjective Subjective Patient seen and examined with his nurse by his bedside. He had no complaints today. He denied any fever, chills, nausea, vomiting, burning with urination or any other symptoms. Review of systems otherwise negative. He was literally discharged from [place] [facility] the day before he presented but came back to the ED because of weakness and debility with mechanical fall. He had been treated at [place] for UTI. Objective Data Objective Data Vital Signs: Vital Signs Temp Pulse Resp BP Pulse Ox O2 Del Method 97.5 F L 68 18 124/56 H 99 Room Air 01/20/25 09:10 01/20/25 09:10 01/20/25 09:10 01/20/25 09:10 01/20/25 09:10 01/20/25 09:10 Oxygen Delivery Method Room Air Weight: 288 lb 0.543 oz Body Mass Index (BMI) 42.5 Intake & Output: Intake and Output for Last 24 Hours 01/18/25 01/19/25 01/20/25 23:59 23:59 23:59 Intake Total 3350 / 3350 Output Total 250 / 250 Balance 3100 / 3100 Lab / Micro Data 01/20/25 04:43 01/20/25 04:43 Labs: Laboratory Results - last 24 hr 01/20/25 00:43: WBC 7.2, RBC 3.48 L, Hgb 10.6 L, Hct 32.7 L, MCV 94.0, MCH 30.5, MCHC 32.4, RDW Std Deviation 52.3 H, RDW Coeff of Veronica 15.2 H, Plt Count 121 L, MPV 9.2, Immature Gran % (Auto) 1.000 H, Neut % (Auto) 60.8, Lymph % (Auto) 26.4, Harper % (Auto) 6.9, Eos % (Auto) 4.2, Baso % (Auto) 0.7, Absolute Neuts (auto) 4.4, Absolute Lymphs (auto) 1.89, Nucleated RBC % 0, Sodium 135, Potassium 3.9, Chloride 103, Carbon Dioxide 22.6, Anion Gap 10, BUN 14, Creatinine 1.83 H, Estim Creat Clear Calc 46.86 L, Est GFR (MDRD) Non-Af 38 L, BUN/Creatinine Ratio 7.8 L, Glucose 239 H, Lactic Acid 3.2 H*, Calcium 8.1, Magnesium 2.1, Total Bilirubin 0.46, Direct Bilirubin 0.22, AST 22, ALT 23, Alkaline Phosphatase 57, Ammonia 15.6 L, Total Protein 5.9, Albumin 3.1 L, Globulin 2.8, Procalcitonin 0.14 H, TSH 2.430 01/20/25 01:06: Urine Color Yellow, Urine Clarity Cloudy, Urine pH 6.0, Ur Specific Cushing 1.015, Urine Protein 100 H, Urine Glucose (UA) 1000 H, Urine Ketones Negative, Urine Occult Blood 250 H, Urine Nitrite Negative, Urine Bilirubin Negative, Urine Urobilinogen Normal, Ur Leukocyte Esterase 500 H, Urine RBC 5-10 SEEN, Urine WBC 50-100 SEEN, Ur Squamous Epith Cells 0 SEEN, Ur Renal Epithelial Cell 5-10 SEEN, Urine Bacteria 2+, Urine Mucus 0 SEEN 01/20/25 04:10: POC Glucose 149 H 01/20/25 04:43: WBC 7.6, RBC 3.54 L, Hgb 10.7 L, Hct 33.1 L, MCV 93.5, MCH 30.2, MCHC 32.3, RDW Std Deviation 52.1 H, RDW Coeff of Veronica 15.2 H, Plt Count 106 L, MPV 8.9, Immature Gran % (Auto) 0.900, Neut % (Auto) 69.3, Lymph % (Auto) 19.9, Harper % (Auto) 6.2, Eos % (Auto) 2.8, Baso % (Auto) 0.9, Absolute Neuts (auto) 5.3, Absolute Lymphs (auto) 1.51, Nucleated RBC % 0, Sodium 137, Potassium 3.9, Chloride 106, Carbon Dioxide 19.9 L, Anion Gap 11, BUN 13, Creatinine 1.63 H, Estim Creat Clear Calc 52.44, Est GFR (MDRD) Non-Af 44 L, BUN/Creatinine Ratio 8.2 L, Glucose 142 H, Lactic Acid 2.2 H*, Calcium 7.8, Total Bilirubin 0.39, AST 22, ALT 21, Alkaline Phosphatase 56, Troponin T High Sens 38 H, Total Protein 5.7 L, Albumin 3.0 L, Globulin 2.7, Albumin/Globulin Ratio 1.1 01/20/25 06:45: POC Glucose 78 01/20/25 06:53: Troponin T Hi Sens 2 Hr 37 H 01/20/25 09:05: Troponin T Hi Sens 4Hr 37 H Radiography Diagnostic Testing: Radiology Impression Chest X-Ray 01/20/25 01:16 IMPRESSION: Interval appearance of mild bilateral basilar atelectatic pulmonary changes. Reading Location: [place] [address] Physical Exam Const alert and no apparent distress Constitutional Narrative: Class III obesity General Appearance: cooperative HEENT normocephalic, head/scalp atraumatic, moist oral mucous membranes and oropharynx normal Eyes EOMs intact bilaterally Neck supple and no JVD Lymph Lymphatic: no lymphedema noted Resp Resp Narrative: Mildly diminished breath sounds bibasilarly. No wheezes or crackles. On room air. Cardio regular rate, regular rhythm, S1 normal heart sound, S2 normal heart sound and no murmurs GI normal to inspection, nondistended, normoactive bowel sounds, soft to palpation and non-tender Extremity normal capillary refill, no clubbing, cyanosis or edema and no calf tenderness General Extremity: no tenderness to palpation of joints or extremities Skin Skin Narrative: skin on lower extremities is very dry dry and scaly Neuro CN's II-XII intact bilaterally and no focal motor deficits Motor Exam: general weakness Psych cooperative Mood & Affect: flat affect Assessment & Plan Assessment/Plan (1) Parkinson's disease: (2) UTI (urinary tract infection): (3) Acute encephalopathy: (4) Physical debility: PLAN: Plan #Acute encephalopathy due to UTI Patient admitted with a complaint of confusion and weakness with mechanical falls. He had just been discharged from [place] the day before admission after being treated for UTI. However was will get passed out when he got home so brought him back. Urinalysis does show evidence of UTI and lactic acid was 3.2. WBC was 7.2. Currently on IV ceftriaxone. Blood cultures and urine cultures ordered. Has Marx catheter in place. #Type 2 diabetes mellitus with neuropathy: Oral meds on hold. On insulin sliding scale. Accu-Cheks ACHS #Parkinson's disease with dementia: On pramipexole and donepezil. PT OT on board. #CKD stage III: Creatinine at baseline. Will monitor. #Hypertension: BP meds held as patient was hypotensive on admission. Will monitor. #Hyperlipidemia: On Zetia #Anxiety and depression: On duloxetine. Was on trazodone but this was held due to altered mental status on admission. #Thrombocytopenia: Platelets are 106. Does have chronic thrombocytopenia. Will monitor closely. #Hypothyroidism: On Synthroid #Morbid obesity: BMI is 42.5. Complicates acute care, expected recovery and prognosis. #BPH with obstructive pathology: Marx catheter in situ. On Flomax. #Gout: Allopurinol DVT prophylaxis: Lovenox Charges/Coding Visit Charges Inpatient E&M: 59891 Subs Hosp L2
--- NOTE | 2025-01-20 13:24 | CASEMGMT ---
CHARLOTTE STRICKLAND Readmission Chart Review Index: 01/06/25-01/10/25. Dx: Encephalopathy, UTI Current: 01/20/25. Dx: Encephalopathy, UTI From the index admission, the patient was discharged to [facility]. Patient was discharged from the fdc facility on 01/19. The patient was discharged home with home healthcare through [facility]. [facility] is supposed to start care on the due to the patient being in the process of moving. Patient re-presents to [facility] ER with weakness, disability, and a fall. CHARLOTTE STRICKLAND to the patient at this time. Patient is currently A&Ox2 (self and place only) and has a history of dementia. Patient consents that this insurance agency manager call the patient?s . Patient?s , Ariadna, answers the phone and consents to readmission review. Ariadna states that she does not believe anything could?ve been done to prevent the readmission. Moving forward, Ariadna wishes the patient to return to [facility], once medically ready. The hospitalist states the patient will be here through the weekend and will be medically ready likely on Thursday. Patient?s denies wanting to review a list of local in-network fdc facilities and prefers [facility] as the facility of choice. [facility] is notified and plans to send DC a referral for DC planning. Pt's denies further questions or concerns at this time. [facility] notified of DC plan. CM to continue to follow. Rao PICKARD RN, CM
--- NOTE | 2025-01-20 13:27 | CASEMGMT ---
Discharge Planning Referral sent to [facility]. Karolina Nur DC Planning Asst.
--- NOTE | 2025-01-20 14:33 | CHAPLAIN ---
Type of Pastoral Visit _x__ Initial Visit ___ Follow-up Visit ___ On-call Visit ___ General Patient Visit ___ Spiritual Assessment ___ Family Conference ___ Bereavement ___ Rapid Response ___ Code Blue ___ Other (describe below) Pastoral Care Referral From ___ Patient _x__ Family ___ Nurse ___ Physician ___ Senior Reservations Agent ___ Compressor Operator Portable ___ Other (describe below) Sacrament/Intervention _x__ Active listening ___ Anointing ___ Bahai ___ Bereavement ___ Communion ___ Ximena exploration ___ _x__ Life review _x__ Prayer ___ Reconciliation ___ Sacrament of Sick _x__ Supportive presence ___ Wedding ___ Other (describe below) Pastoral Comments this patient has been seen before; pt is watching tv and sitting in a chair; pt is welcoming and alert; pt speaks of feeling better and unsure why he came to the hospital; pt is not in any distress; pt is very talkative and speaks of times past when he went hunting with his family in a hunting cabin; pt is content to speak about those family experiences and his love for hunting; pt did repeat himself a few times; pt was redirected to talk about his needs or wants but he denied any concerns other than wondering where his was and 'she should be coming here by now'; pt speaks of having prayer when asked about what he wanted for support
--- NOTE | 2025-01-20 15:14 | CASEMGMT ---
[facility] has accepted and will submit for precert. Note sent asking if HH had been set up when he discharged. *Of note, in earlier conversation with [facility], she stated that pt was not quite ready to safely dc but he and were insistent. RN CM updated. Karolina Nur, INDERJIT Planning Asst.
--- NOTE | 2025-01-20 15:21 | CASEMGMT ---
Discharge Planning [facility] had not yet sent referrral at the request of pts . She asked for referral to be made 10 days after discharge d/t moving. Karolina Nur DC Planning Asst.
[2025-01-20] MEDS: 0.9% Saline Lock 10 ML Syringe IV (20:07)
[2025-01-20] MEDS: Insulin Glargine-YFGN 100 UNIT/ML Pen 75 UNIT SC (23:09)
[2025-01-21 03:50] VITALS: BP 161/65; PULSE 72; RESP 16; TEMP 36.7; O2SAT 99
[2025-01-21 06:00] VITALS: BMI 43.8
[2025-01-21 07:25] LABS: Anion Gap 13 (5-15); BUN 11 mg/dL (4-19); BUN/Creat Ratio 7.5 RATIO (10-20); Calcium,Total 8.4 mg/dL (7.6-11.0); Carbon Dioxide 20.1 mmol/L (21.0-32.0); Chloride 102 mmol/L (98-108); Estimated Creatinine Clearance 59.12 ml/min (50-250); Glucose 178 mg/dL (70-99); Potassium 3.8 mmol/L (3.3-5.1)
[2025-01-21 07:25] LABS: Hematocrit 35.5 % (40-54); Hemoglobin 11.8 g/dL (13.0-16.5); Immature Granulocytes Count 0.060 X10^3/uL (0.0-0.0); Mean Corp Hgb Conc 33.2 g/dL (32-36); Mean Corpuscular Volume 91.7 fL (80-94); Mean Platelet Vol. 8.9 fl (6.2-12.0); NRBC Flagged by Analyzer 0 % (0-5); Platelet Count 125 K/mm3 (150-450); RBC Distribution Width CV 15.1 % (11.6-14.6); RBC Distribution Width SD 49.8 fl (35.1-43.9); Red Blood Count 3.87 M/mm3 (4.6-6.2); White Blood Count 7.5 K/mm3 (4.4-11.0)
[2025-01-21 09:25] VITALS: BP 132/92; PULSE 74; RESP 16; TEMP 36.6; O2SAT 97
[2025-01-21] MEDS: Senna/Docusate Sodium 1 Tablet 2 TABLET PO ×2 (10:34→20:50)
[2025-01-21] MEDS: Pramipexole Di-HCl 0.125 MG Tablet PO ×2 (10:34→20:50)
[2025-01-21] MEDS: Mineral Oil/Petrolatum Cr 1.75oz Bottle 1 APPLIC TOPICAL ×2 (10:42→20:49)
--- NOTE | 2025-01-21 14:26 | PN_ITS ---
Subjective Subjective Patient seen and examined. He was lying comfortably in bed with his nurse by his bedside. He had no active complaints. Review of systems otherwise negative. He has been hemodynamically stable. Objective Data Objective Data Vital Signs: Vital Signs Temp Pulse Resp BP Pulse Ox O2 Del Method 98 F 74 16 132/92 H 97 Room Air 01/21/25 09:25 01/21/25 09:25 01/21/25 09:25 01/21/25 09:25 01/21/25 09:25 01/21/25 10:35 Oxygen Delivery Method Room Air Weight: 296 lb 11.875 oz Body Mass Index (BMI) 43.8 Intake & Output: Intake and Output for Last 24 Hours 01/19/25 01/20/25 01/21/25 23:59 23:59 23:59 Intake Total 4720 / 4720 200 / 200 Output Total 1200 / 1200 1100 / 1100 Balance 3520 / 3520 -900 / -900 Lab / Micro Data 01/21/25 07:10 01/21/25 06:25 Labs: Laboratory Results - last 24 hr 01/20/25 16:18: POC Glucose 123 H 01/20/25 23:07: POC Glucose 234 H 01/21/25 06:08: POC Glucose 163 H 01/21/25 06:25: WBC Cancelled, Corrected WBC Cancelled, RBC Cancelled, Hgb Cancelled, Hct Cancelled, MCV Cancelled, MCH Cancelled, MCHC Cancelled, RDW Std Deviation Cancelled, RDW Coeff of Veronica Cancelled, Plt Count Cancelled, MPV Cancelled, Immature Gran % (Auto) Cancelled, Neut % (Auto) Cancelled, Lymph % (Auto) Cancelled, [place] % (Auto) Cancelled, Eos % (Auto) Cancelled, Baso % (Auto) Cancelled, Absolute Neuts (auto) Cancelled, Absolute Lymphs (auto) Cancelled, Total Counted Cancelled, Neutrophils % (Manual) Cancelled, Band Neutrophils % Cancelled, Lymphocytes % (Manual) Cancelled, Monocytes % (Manual) Cancelled, Eosinophils % (Manual) Cancelled, Basophils % (Manual) Cancelled, Metamyelocytes % Cancelled, Myelocytes % Cancelled, Promyelocytes % Cancelled, Blast Cells % Cancelled, Plasma Cell % (Manual) Cancelled, Other Cells % Cancelled, Nucleated RBC % Cancelled, Nucleated RBCs/100 WBC Cancelled, Differential Comment Cancelled, Diff Path Review Cancelled, Hypersegmented Neuts Cancelled, Atypical Lymphocytes Cancelled, Reactive Lymphocytes Cancelled, Smudge Cells Cancelled, Toxic Granulation Cancelled, Toxic Vacuolation Cancelled, Dohle Bodies Cancelled, Neil Rods Cancelled, Platelet Estimate Cancelled, Plt Morphology Comment Cancelled, RBC Morphology Cancelled 01/21/25 06:25: RBC Morphology Cancelled, Polychromasia Cancelled, Hypochromasia Cancelled, Basophilic Stippling Cancelled, Anisocytosis Cancelled, Microcytosis Cancelled, Macrocytosis Cancelled, Spherocytes Cancelled, Sickle Cells Cancelled, Target Cells Cancelled, Tear Drop Cells Cancelled, Ovalocytes Cancelled, Stomatocytes Cancelled, [place] Bodies Cancelled, Nikko Cells Cancelled, Bite Cells Cancelled, Crenated Cell Cancelled, Acanthocytes (Spur) Cancelled, Rouleaux Cancelled, Schistocytes Cancelled, Sodium 135, Potassium 3.8, Chloride 102, Carbon Dioxide 20.1 L, Anion Gap 13, BUN 11, Creatinine 1.47 H, Estim Creat Clear Calc 59.12, Est GFR (MDRD) Non-Af 49 L, BUN/Creatinine Ratio 7.5 L, Glucose 178 H, Calcium 8.4 01/21/25 07:10: WBC 7.5, RBC 3.87 L, Hgb 11.8 L, Hct 35.5 L, MCV 91.7, MCH 30.5, MCHC 33.2, RDW Std Deviation 49.8 H, RDW Coeff of Veronica 15.1 H, Plt Count 125 L, MPV 8.9, Immature Gran % (Auto) 0.800, Neut % (Auto) 69.1, Lymph % (Auto) 19.3, [place] % (Auto) 6.5, Eos % (Auto) 3.6, Baso % (Auto) 0.7, Absolute Neuts (auto) 5.2, Absolute Lymphs (auto) 1.45, Nucleated RBC % 0 01/21/25 11:25: POC Glucose 194 H Physical Exam Const alert and no apparent distress Constitutional Narrative: Class III obesity General Appearance: cooperative HEENT normocephalic, head/scalp atraumatic, moist oral mucous membranes and oropharynx normal Eyes EOMs intact bilaterally Neck supple and no JVD Lymph Lymphatic: no lymphedema noted Resp Resp Narrative: Mildly diminished breath sounds bibasilarly. No wheezes or crackles. On room air. Cardio regular rate, regular rhythm, S1 normal heart sound, S2 normal heart sound and no murmurs GI normal to inspection, nondistended, normoactive bowel sounds, soft to palpation and non-tender Extremity normal capillary refill, no clubbing, cyanosis or edema and no calf tenderness General Extremity: no tenderness to palpation of joints or extremities Skin Skin Narrative: skin on lower extremities is very dry dry and scaly Neuro CN's II-XII intact bilaterally and no focal motor deficits Motor Exam: general weakness Psych thought process normal and cooperative Mood & Affect: flat affect Assessment & Plan Assessment/Plan (1) Parkinson's disease: (2) UTI (urinary tract infection): (3) Acute encephalopathy: (4) Physical debility: PLAN: Plan #Acute encephalopathy due to UTI * Patient admitted with a complaint of confusion and weakness with mechanical falls. * He had just been discharged from [place] the day before admission after being treated for UTI. * However was will get passed out when he got home so brought him back. Urinalysis does show evidence of UTI and lactic acid was 3.2. WBC was 7.2. * Currently on IV ceftriaxone. Blood cultures and urine cultures ordered. Has Marx catheter in place. * #Type 2 diabetes mellitus with neuropathy: Oral meds on hold. On insulin sliding scale. Accu-Cheks ACHS #Parkinson's disease with dementia: On pramipexole and donepezil. PT OT on board. #CKD stage III: Creatinine at baseline. Will monitor. #Hypertension: BP meds held as patient was hypotensive on admission. Will monitor. #Hyperlipidemia: On Zetia #Anxiety and depression: On duloxetine. Was on trazodone but this was held due to altered mental status on admission. #Thrombocytopenia: Platelets are 106. Does have chronic thrombocytopenia. Will monitor closely. #Hypothyroidism: On Synthroid #Class II obesity. BMI is 43.8. Complicates acute care, expected recovery and prognosis. #BPH with obstructive pathology: Marx catheter in situ. On Flomax. #Gout: Allopurinol DVT prophylaxis: Lovenox Charges/Coding Visit Charges Inpatient E&M: 69752 Subs Hosp L2
[2025-01-21 16:56] VITALS: BP 158/75; PULSE 73; RESP 14; TEMP 36.7; O2SAT 100
[2025-01-21] MEDS: 0.9% Saline Lock 10 ML Syringe IV ×2 (20:49→20:57)
[2025-01-21 21:45] VITALS: BP 158/80; PULSE 72; RESP 18; TEMP 36.6; O2SAT 98
[2025-01-22 03:30] VITALS: BP 165/65; PULSE 77; RESP 18; TEMP 36.6; O2SAT 99
[2025-01-22 03:55] VITALS: BMI 43.0
[2025-01-22 06:40] LABS: Hematocrit 36.6 % (40-54); Hemoglobin 12.0 g/dL (13.0-16.5); Immature Granulocytes Count 0.090 X10^3/uL (0.0-0.0); Mean Corp Hgb Conc 32.8 g/dL (32-36); Mean Corpuscular Volume 92.4 fL (80-94); Mean Platelet Vol. 9.0 fl (6.2-12.0); NRBC Flagged by Analyzer 0 % (0-5); Platelet Count 152 K/mm3 (150-450); RBC Distribution Width CV 15.2 % (11.6-14.6); RBC Distribution Width SD 50.8 fl (35.1-43.9); Red Blood Count 3.96 M/mm3 (4.6-6.2); White Blood Count 6.1 K/mm3 (4.4-11.0)
[2025-01-22 07:11] LABS: Anion Gap 12 (5-15); BUN 9 mg/dL (4-19); BUN/Creat Ratio 6.5 RATIO (10-20); Calcium,Total 8.8 mg/dL (7.6-11.0); Carbon Dioxide 21.5 mmol/L (21.0-32.0); Chloride 103 mmol/L (98-108); Estimated Creatinine Clearance 60.99 ml/min (50-250); Glucose 182 mg/dL (70-99); Potassium 3.9 mmol/L (3.3-5.1)
--- NOTE | 2025-01-22 08:26 | VDLE_ITS ---
Reason For Study Reason For Study: Swelling RIGHT LEFT Acute deep vein thrombosis is noted in the EIV, CFV, GSV is normal. FV, POPV, T/P TRUNK, PTV, AND JUDI V. They are Acute deep vein thrombosis is noted in the EIV, CFV, dilated and NONCOMPRESSIBLE. FV, POP V, T/P TRUNK, GASTROC V, AND PTV. They are Acute superficial vein thrombosis is noted in the dilated and NONCOMPRESSIBLE. GSV. It is dialated and NONCOMPRESSIBLE. LT PerV is compressible. Procedure This is a venous duplex using B-mode, color flow and spectral Doppler. Exam performed portable in patient room. The study was technically difficult. A preliminary report was called and/or faxed to PCU Charge Nurse. VL/Venous Duplex US - [place] Extrem Interpretation Summary Acute deep vein thrombosis is noted in the entire right lower extremity deep ve nous system, including the right external iliac vein. Acute deep vein thrombosis is noted throughout the entire left lowe r extremity deep venous system, but for the left peroneal vein. Acute superficial thrombophlebitis is noted in the righ t great saphenous vein. The left great saphenous vein appears patent and compressible segmentally. Ordering Physician: Kadie Cheung Referring Physician: Maite Eng CRNP Performed By: Ximena Tate RVT
[2025-01-22 08:51] VITALS: BP 153/78; PULSE 82; RESP 16; TEMP 36.8; O2SAT 95
[2025-01-22] MEDS: Senna/Docusate Sodium 1 Tablet 2 TABLET PO ×2 (08:55→20:40)
[2025-01-22] MEDS: Mineral Oil/Petrolatum Cr 1.75oz Bottle 1 APPLIC TOPICAL ×2 (08:56→20:42)
[2025-01-22] MEDS: Pramipexole Di-HCl 0.125 MG Tablet PO ×2 (09:00→20:40)
--- NOTE | 2025-01-22 12:20 | PN_ITS ---
Subjective Subjective Patient seen and examined with his nurse by his bedside. He was lying calmly in bed and had no complaints. He had an uneventful night. Review of systems otherwise negative. I was informed by patient's nurse that said patient had a history of DVTs and she had noticed that his lower extremities were swollen. Review of systems otherwise negative. Urine cultures are still pending. Objective Data Objective Data Vital Signs: Vital Signs Temp Pulse Resp BP Pulse Ox O2 Del Method 98.2 F 82 16 153/78 H 95 Room Air 01/22/25 08:51 01/22/25 08:51 01/22/25 08:51 01/22/25 08:51 01/22/25 08:51 01/22/25 08:51 Oxygen Delivery Method Room Air Weight: 291 lb 3.69 oz Body Mass Index (BMI) 43.0 Intake & Output: Intake and Output for Last 24 Hours 01/20/25 01/21/25 01/22/25 23:59 23:59 23:59 Intake Total 4720 / 4720 250 / 250 Output Total 1200 / 1200 1750 / 2250 1000 / 1000 Balance 3520 / 3520 -1500 / -2000 -1000 / -1000 Lab / Micro Data 01/22/25 06:00 01/22/25 06:00 Labs: Laboratory Results - last 24 hr 01/21/25 11:25: POC Glucose 194 H 01/21/25 16:49: POC Glucose 156 H 01/21/25 20:43: POC Glucose 151 H 01/22/25 06:00: WBC 6.1, RBC 3.96 L, Hgb 12.0 L, Hct 36.6 L, MCV 92.4, MCH 30.3, MCHC 32.8, RDW Std Deviation 50.8 H, RDW Coeff of Veronica 15.2 H, Plt Count 152, MPV 9.0, Immature Gran % (Auto) 1.500 H, Neut % (Auto) 57.5, Lymph % (Auto) 28.4, [place] % (Auto) 7.4, Eos % (Auto) 4.4, Baso % (Auto) 0.8, Absolute Neuts (auto) 3.5, Absolute Lymphs (auto) 1.73, Nucleated RBC % 0, Sodium 136, Potassium 3.9, Chloride 103, Carbon Dioxide 21.5, Anion Gap 12, BUN 9, Creatinine 1.41 H, Estim Creat Clear Calc 60.99, Est GFR (MDRD) Non-Af 52 L, BUN/Creatinine Ratio 6.5 L, Glucose 182 H, Calcium 8.8 01/22/25 06:21: POC Glucose 143 H Micro: Microbiology 01/20/25 01:06 Urine Catheter - Marx Urine Culture - Preliminary Yeast Like Organism 01/20/25 00:35 Blood Culture (Wb) - Anticubital Right Blood Culture - Preliminary No growth in 48 hours. 01/20/25 00:43 Blood Culture (Wb) - Left Wrist Blood Culture - Preliminary No growth in 48 hours. Physical Exam Const alert and no apparent distress Constitutional Narrative: Class III obesity General Appearance: cooperative HEENT normocephalic, head/scalp atraumatic, moist oral mucous membranes and oropharynx normal Eyes EOMs intact bilaterally Neck supple and no JVD Lymph Lymphatic: no lymphedema noted Resp Resp Narrative: Mildly diminished breath sounds bibasilarly. No wheezes or crackles. On room air. Cardio regular rate, regular rhythm, S1 normal heart sound, S2 normal heart sound and no murmurs GI normal to inspection, nondistended, normoactive bowel sounds, soft to palpation and non-tender Extremity normal capillary refill and no calf tenderness Extremity Narrative: LLE: calf is swollen. NO tenderness to palpation. Minimal edema. General Extremity: no tenderness to palpation of joints or extremities Skin Skin Narrative: skin on lower extremities is very dry dry and scaly Neuro CN's II-XII intact bilaterally and no focal motor deficits Motor Exam: general weakness Psych thought process normal and cooperative Mood & Affect: flat affect Assessment & Plan Assessment/Plan (1) Parkinson's disease: (2) UTI (urinary tract infection): (3) Acute encephalopathy: (4) Physical debility: PLAN: Plan #Acute encephalopathy due to UTI * Patient admitted with a complaint of confusion and weakness with mechanical falls. * He had just been discharged from [place] the day before admission after being treated for UTI. * However was will get passed out when he got home so brought him back. Urinalysis does show evidence of UTI and lactic acid was 3.2. WBC was 7.2. * Currently on IV ceftriaxone. Blood cultures and urine cultures ordered. Has Marx catheter in place. * #Bilateral lower extremity DVT * Patient's informed the nurse that she had noticed patient had LLE calf edema and he had a histoyr of DVT. * patient did have RLE calf welling but no tenderness with palpation. * Stat duplex of hte lower extremities bilaterally showed bilateral DVT from the ankle to the thigh. * will start on heparin drip for now with bolus * #Type 2 diabetes mellitus with neuropathy: Oral meds on hold. On insulin sliding scale. Accu-Cheks ACHS #Parkinson's disease with dementia: On pramipexole and donepezil. PT OT on board. #CKD stage III: Creatinine remains at baseline. Will monitor. #Hypertension: BP meds held as patient was hypotensive on admission. Will monitor. #Hyperlipidemia: On Zetia #Anxiety and depression: On duloxetine. Was on trazodone but this was held due to altered mental status on admission. #Thrombocytopenia: Platelets are up to 152 today. Does have chronic thrombocytopenia. Will monitor closely. #Hypothyroidism: On Synthroid #Class II obesity. BMI is 43.8. Complicates acute care, expected recovery and prognosis. #BPH with obstructive pathology: Marx catheter in situ. On Flomax. #Gout: Allopurinol DVT prophylaxis: Lovenox Charges/Coding Visit Charges Inpatient E&M: 68218 Subs Hosp L2
[2025-01-22 13:11] LABS: Hematocrit 34.2 % (40-54); Hemoglobin 11.5 g/dL (13.0-16.5); Immature Granulocytes Count 0.060 X10^3/uL (0.0-0.0); Mean Corp Hgb Conc 33.6 g/dL (32-36); Mean Corpuscular Volume 91.2 fL (80-94); Mean Platelet Vol. 9.0 fl (6.2-12.0); NRBC Flagged by Analyzer 0 % (0-5); Platelet Count 131 K/mm3 (150-450); RBC Distribution Width CV 15.3 % (11.6-14.6); RBC Distribution Width SD 50.4 fl (35.1-43.9); Red Blood Count 3.75 M/mm3 (4.6-6.2); White Blood Count 6.4 K/mm3 (4.4-11.0)
[2025-01-22 13:26] LABS: Prothrombin Time (Protime)PT. 14.1 SECONDS (11.7-14.9)
[2025-01-22 13:27] LABS: Partial Thromboplast Time 31.7 Seconds (24.1-36.2)
[2025-01-22] MEDS: Heparin Injection (Vial) 5,000 UNIT/ML VIAL 10500 UNIT IV (15:00)
[2025-01-22] MEDS: HEPARIN/D5w 25,000 UNITS 25,000 UNITS/250 ML IV.SOLN. 19.8 UNITS CONT INF (15:08)
[2025-01-22 15:13] VITALS: BP 138/63; PULSE 98; RESP 18; TEMP 36.9; O2SAT 98
[2025-01-22 20:40] VITALS: BP 146/70; PULSE 80; RESP 18; TEMP 37.2; O2SAT 95
[2025-01-22] MEDS: MELATONIN 3 MG TABLET PO (20:40)
[2025-01-22] MEDS: Insulin Glargine-YFGN 100 UNIT/ML Pen 75 UNIT SC (20:42)
[2025-01-22 22:02] LABS: Partial Thromboplast Time 212.1 Seconds (24.1-36.2)
[2025-01-23 03:00] VITALS: BP 160/60; PULSE 69; RESP 18; TEMP 36.6; O2SAT 98
[2025-01-23 05:09] VITALS: BMI 43.5
[2025-01-23] MEDS: HEPARIN/D5w 25,000 UNITS 25,000 UNITS/250 ML IV.SOLN. 16.8 UNITS CONT INF (06:08)
[2025-01-23 06:53] LABS: Hematocrit 32.7 % (40-54); Hemoglobin 11.1 g/dL (13.0-16.5); Immature Granulocytes Count 0.060 X10^3/uL (0.0-0.0); Mean Corp Hgb Conc 33.9 g/dL (32-36); Mean Corpuscular Volume 91.1 fL (80-94); Mean Platelet Vol. 8.5 fl (6.2-12.0); NRBC Flagged by Analyzer 0 % (0-5); Platelet Count 123 K/mm3 (150-450); RBC Distribution Width CV 15.3 % (11.6-14.6); RBC Distribution Width SD 50.9 fl (35.1-43.9); Red Blood Count 3.59 M/mm3 (4.6-6.2); White Blood Count 5.5 K/mm3 (4.4-11.0)
[2025-01-23 07:06] LABS: Partial Thromboplast Time 89.5 Seconds (24.1-36.2)
[2025-01-23 07:12] LABS: Anion Gap 10 (5-15); BUN 9 mg/dL (4-19); BUN/Creat Ratio 6.4 RATIO (10-20); Calcium,Total 8.6 mg/dL (7.6-11.0); Carbon Dioxide 21.6 mmol/L (21.0-32.0); Chloride 102 mmol/L (98-108); Estimated Creatinine Clearance 63.22 ml/min (50-250); Glucose 168 mg/dL (70-99); Potassium 3.9 mmol/L (3.3-5.1)
[2025-01-23 08:43] VITALS: BP 167/66; PULSE 67; RESP 18; TEMP 36.1; O2SAT 96
[2025-01-23] MEDS: Pramipexole Di-HCl 0.125 MG Tablet PO (08:50)
[2025-01-23] MEDS: Mineral Oil/Petrolatum Cr 1.75oz Bottle 1 APPLIC TOPICAL (08:51)
[2025-01-23] MEDS: Senna/Docusate Sodium 1 Tablet 2 TABLET PO (08:51)
[2025-01-23] MEDS: APIXABAN 5 MG TABLET 10 MG PO (09:04)
--- NOTE | 2025-01-23 09:19 | CASEMGMT ---
Discharge Planning Updates sent to [facility] with request for precert ref#. Karolina Nur DC Planning Asst.
--- NOTE | 2025-01-23 10:14 | CASEMGMT ---
Discharge Planning Precert ref# is [id number] Karolina Nur DC Planning Asst.
--- NOTE | 2025-01-23 12:26 | PCM.TXEXTCAR ---
Diet Diet Order/Speech Therapy: INPATIENT Hospital Diet / Speech Therapy Order(s) 01/20/25 13:19 Diet: Cardiac - Heart Healthy Food consistency:: Regular Liquid Consistency:: Regular/Thin Dietary Modifications:: Consistent Carbohydrate Routine Orders/Code Status Routine Lab Work: CBC (1 week) and BMP (1 week) Code Status: DNRCC-A (ok for ett) DC O2, CPAP, BIPAP needs Home O2 Discharge instructions: No Suggestions for Active Care Change Position every (hours): 2 Hours to sit in a chair: 3 Times a day to sit in chair: 2 Therapies Weight Bearing: Full weight bearing Physical Therapy: Eval and Treat Occupational Therapy: Eval and Treat Problem/Diagnosis (1) Parkinson's disease: Status: Acute Code(s): G20.A1 - Parkinson's disease without dyskinesia, without mention of fluctuations (2) UTI (urinary tract infection): Status: Acute Code(s): N39.0 - Urinary tract infection, site not specified (3) Acute encephalopathy: Status: Acute Code(s): G93.40 - Encephalopathy, unspecified (4) Physical debility: Status: Acute Code(s): R53.81 - Other malaise Allergies/Procedures Done in Hospital Allergies ibuprofen Adverse Reaction (Verified 01/06/25 18:17) Abd cramps/diarrhea Procedures: - (CXR/Venous Duplex) Type of Care/Length of Stay Estimated LOS: Convalescent Care Less Than 30 days Type of Care Needed: Skilled Rehab Potential: Fair Prognosis: Fair Additional Orders/Day of Discharge Day of Discharge: 01/23/25 Dietary and Speech Recommendations Dietitian Recommendations/Changes: Adjust to cardiac; consistent carbohydrate diet. Will discontinue 120ml EPHP TID with medpass due to pt dislikes ONS. Will monitor weight trends. Discharge Plan Admission Admit Date/Time: 01/20/25 02:25 Attending Provider: Bisi Rivera Primary Care Provider: ABHISHEK ST Consulting Providers: Ute Hancock; Kadie Cheung Discharge Orders/Prescriptions Prescriptions: No Action allopurinol 100 MG tablet 100 mg PO DAILYCM insulin glargine [Basaglar KwikPen U-100 Insulin] 100 unit/mL (3 mL) insulin pen 75 unit subcut QPM tamsulosin 0.4 mg capsule 0.4 mg PO DAILY gabapentin 800 MG tablet 400 mg PO TIDCM Qty: 45 0RF donepezil 10 mg tablet 10 mg PO QHS Trulicity 3 mg/0.5 mL pen injector 3 mg subcut QWEEK duloxetine 60 mg capsule,delayed release(DR/EC) 60 mg PO DAILY lisinopril 2.5 mg tablet 2.5 mg PO DAILY pramipexole 0.125 mg tablet 0.125 mg PO BID ezetimibe 10 mg tablet 10 mg PO DAILY glipizide 10 mg tablet extended release 24hr 10 mg PO DAILY Jardiance 25 mg tablet 25 mg PO DAILY levothyroxine 50 mcg tablet 50 mcg PO DAILY trazodone 50 mg Tablet 100 mg PO QHS Rx Instructions: Home medication. quetiapine 50 mg tablet 50 mg PO DAILY acetaminophen 325 mg Tablet 650 mg PO Q4H PRN PRN (Reason: Fever, pain -02/10) Qty: 0 0RF sennosides-docusate sodium [Stimulant Laxative Plus] 8.6-50 mg Tablet 2 tab PO BID Qty: 0 0RF insulin lispro [Humalog KwikPen Insulin] 100 unit/mL Insulin Pen See Protocol subcut ACHS Qty: 0 0RF Protocol: 3. Sliding Scale Insulin Med Dosing Condition: 150-189 mg/dl = 1 unit Condition: 190-229 mg/dl = 2 units Condition: 230-269 mg/dl = 3 units Condition: 270-309 mg/dl = 4 units Condition: 310-349 mg/dl = 5 units Condition: 350-399 mg/dl = 6 units Condition: 400-449 mg/dl = 7 units Condition: Greater than 449 call physician Protocol Text: - Use for Total Daily Dose of Insulin 37-55 units - Obsese, infected, or steroid patients MEDIUM DOSING ALGORITHIM tramadol 50 mg tablet 50 mg PO TID 20 Days Qty: 60 0RF Referrals / Follow Up: ABHISHEK ST CRNP [Primary Care Provider, Family Practice]
--- NOTE | 2025-01-23 12:30 | DS.PCM_ITS ---
Providers Date of Admission: 01/20/25 Date of Discharge: 01/23/25 Primary Care Physician: MELY DUARTE Reason For Visit: ENCEPHALOPATHY, UTI Diagnosis Discharge Diagnosis (1) Parkinson's disease: Status: Acute Code(s): G20.A1 - Parkinson's disease without dyskinesia, without mention of fluctuations (2) UTI (urinary tract infection): Status: Acute Code(s): N39.0 - Urinary tract infection, site not specified (3) Acute encephalopathy: Status: Acute Code(s): G93.40 - Encephalopathy, unspecified (4) Physical debility: Status: Acute Code(s): R53.81 - Other malaise Medications at Discharge Home Medications allopurinol 100 mg tablet 100 mg PO DAILYCM gout 05/03/13 donepezil 10 mg tablet 10 mg PO QHS dementia 03/18/24 dulaglutide 3 mg/0.5 mL subcutaneous pen injector (Trulicity) 3 mg subcut QWEEK diabetes 03/18/24 duloxetine 60 mg capsule,delayed release 60 mg PO DAILY depression 03/18/24 empagliflozin 25 mg tablet (Jardiance) 25 mg PO DAILY diabetes 03/18/24 ezetimibe 10 mg tablet 10 mg PO DAILY cholesterol 03/18/24 glipizide 10 mg tablet, extended release 24 hr 10 mg PO DAILY diabetes 03/18/24 levothyroxine 50 mcg tablet 50 mcg PO DAILY thyroid 03/18/24 lisinopril 2.5 mg tablet 2.5 mg PO DAILY blood pressure 03/18/24 pramipexole 0.125 mg tablet 0.125 mg PO BID parkinsons 03/18/24 insulin glargine 100 unit/mL (3 mL) subcutaneous pen (Basaglar KwikPen U-100 Insulin) 75 unit subcut QPM diabetes 10/13/24 tamsulosin 0.4 mg capsule 0.4 mg PO DAILY urine flow 10/15/24 gabapentin 800 mg tablet 400 mg (1/2 x 800 mg) PO TIDCM nerve pain #45 tabs 10/19/24 quetiapine 50 mg tablet 50 mg PO DAILY mental health 01/07/25 trazodone 50 mg tablet 100 mg PO QHS 01/07/25 acetaminophen 325 mg tablet 650 mg (2 x 325 mg) PO Q4H PRN PRN Fever, pain 1- 1010 #0 tabs 01/10/25 insulin lispro 100 unit/mL subcutaneous pen (Humalog KwikPen (U-100) Insulin) See Protocol subcut ACHS #0 mL 01/10/25 sennosides 8.6 mg-docusate sodium 50 mg tablet (Stimulant Laxative Plus) 2 tab PO BID #0 tabs 01/10/25 tramadol 50 mg tablet 50 mg PO TID pain 20 days #60 tabs 01/10/25 apixaban 5 mg tablet (Eliquis) 5 mg PO BID #1 TAB 01/23/25 apixaban 5 mg tablet (Eliquis) 10 mg (2 x 5 mg) PO BID #28 tabs 01/23/25 Hospital Course Operations None Procedures - (Chest x-ray/venous duplex) Summary of Care Provided Minutes Spent on Discharge: 38 Hospital Course: Mr. Limon is a 74-year-old white male who presented to the emergency department [facility] on 01/19/2025 with confusion, falls, and a syncopal episode. Patient had been recently discharged from [facility] following treatment for urinary tract infection. He had a fall at home with increased weakness and his called the squad. While EMS was trying to reposition him and get him up he had a syncopal event which resulted in him and being transferred to the emergency department. He has a chronic indwelling Marx and does have history of recurrent urinary tract infection so there was concern that he may have recurrent UTI. Vital signs on presentation showed temperature of 97.7, heart rate 67, blood pressure was initially 80/50 with a MAP of 60 and a repeat of 118/61. Respiratory was 12 and sats were 98% on room air. CBC was overall unremarkable showing a chronic stable anemia and no left shift. CMP showed a BUN of 14 with a serum creatinine of 1.83 which is close to his baseline. His serum glucose was 239 his lactic acid was 3.2. Ammonia level was 15.6 and procalcitonin was 0.14. TSH was 2.43. UA was concerning for infection and he was therefore admitted to the progressive care unit given his syncopal episode for ongoing treatment of possible UTI and further workup for his syncopal episode. In the emergency department he was given 1 L of IV fluids with blood pressure being responsive after 1 L. And started on antibiotics. Marx catheter was placed for urinary retention as he was discharged without catheter but he did have excessive retention noted in the ED. Blood cultures were obtained prior to antibiotics being initiated. His mental status resolved quickly. There was concern because he was having bilateral lower extremity edema so venous duplex was ordered. He was found to have acute DVT in the entire right lower extremity up to the pelvis and acute DVT of the entire left lower extremity as well as SVT in the right greater saphenous vein. The left greater saphenous vein was patent. He was started on a heparin drip and then transition to Eliquis 10 mg p.o. twice daily. He will take this for 1 week and then transition to Eliquis 5 mg p.o. twice daily. At the time of discharge his blood cultures were no growth at 48 hours and his urine grew yeast but not Callie albicans with low colony counts. Antibiotics were discontinued and I do not think this was infectious etiology. He appeared to have hypotension which may have been orthostatic or related to some decreased volume with dehydration after discharge from skilled facility. As noted previously his serum creatinine on presentation was 1.83 and his baseline seems around between 1.3 and 1.5. He had no recurrent symptoms and clinically did well throughout the rest of his hospitalization. He was seen by physical and Occupational Therapy and they felt that he would benefit from ongoing rehab. He was accepted at [facility] and pre-CERT was obtained on 01/23/2025. He was discharged with no significant medication changes and no additional antibiotics to [facility] on 01/23/2025. Patient is extremely high risk for readmission due to his multiple comorbidities. I have recommended that he follow-up with urology. We will leave the Marx in at discharge as he had significant urine retention. I have asked that he follow-up with Dr. Brand within the next week after discharge. He will follow-up with his primary care physician within 1 week after discharge from skilled facility. Discharge diagnoses: UTI-ruled out Toxic/metabolic encephalopathy Syncope secondary to dehydration Elevated serum creatinine on baseline CKD stage IIIb Acute on chronic generalized weakness and debility secondary to chronic comorbidities DM-2 Diabetic neuropathy Essential hypertension Hyperlipidemia Parkinson's disease Dementia-type unknown Chronic thrombocytopenia Hypothyroidism BPH with obstruction History of gout Morbid obesity Suspected KIMMY Anxiety Depression Physical Exam Const alert, oriented x3, no apparent distress, no limitations and well nourished; Negative for average body habitus or healthy appearing Constitutional Narrative: Morbidly obese, chronically debilitated, white male, sitting up in bed, appears comfortable, nontoxic General Appearance: cooperative, comfortable, well kempt and well developed Exam Limitations: no limitations Nutritional Appearance: morbidly obese HEENT normocephalic, head/scalp atraumatic, hearing grossly normal bilaterally and moist oral mucous membranes HEENT Narrative: Mallampati 4, no thrush Eyes conjunctivae normal Eyes Narrative: No scleral icterus Neck supple Neck Narrative: Trachea midline, neck is short and thick, no thyroid enlargement noted Resp normal respiratory effort, no retractions, no use of accessory muscles and clear to auscultation bilaterally Auscultation: Negative for rales, rhonchi or wheezes Cardio regular rate, regular rhythm, S1 normal heart sound, S2 normal heart sound, no murmurs, no rub and no clicks GI normal to inspection, nondistended, normoactive bowel sounds, soft to palpation and non-tender GI Narrative: Large protuberant abdomen Extremity Extremity Narrative: Pedal and radial pulses are 2+, bilateral lower extremity edema, no cyanosis or clubbing Skin no jaundice, no petechiae and no mottling Neuro moves all extremities and no focal motor deficits Neuro Narrative: Marked generalized weakness noted especially proximal and lower extremities greater than upper extremities no focal deficits were noted Speech: speech normal Psych affect normal Psych Narrative: Very pleasant, interacts appropriately, eye contact is good Weight / BMI Weight Weight: 133.8 kg Body Mass Index (BMI) 43.5 ABG / Lab / Microbiology Data 01/23/25 06:40 01/23/25 06:40 Laboratory: Laboratory Results - last 24 hr 01/22/25 12:39: POC Glucose 185 H 01/22/25 13:02: WBC 6.4, RBC 3.75 L, Hgb 11.5 L, Hct 34.2 L, MCV 91.2, MCH 30.7, MCHC 33.6, RDW Std Deviation 50.4 H, RDW Coeff of Veronica 15.3 H, Plt Count 131 L, MPV 9.0, Immature Gran % (Auto) 0.900, Neut % (Auto) 63.0, Lymph % (Auto) 26.2, [place] % (Auto) 6.3, Eos % (Auto) 3.0, Baso % (Auto) 0.6, Absolute Neuts (auto) 4.0, Absolute Lymphs (auto) 1.67, Nucleated RBC % 0, PT 14.1, INR 1.1, APTT 31.7 01/22/25 16:54: POC Glucose 183 H 01/22/25 20:37: POC Glucose 229 H 01/22/25 20:57: APTT 212.1 H* 01/23/25 06:06: POC Glucose 178 H 01/23/25 06:40: WBC 5.5, RBC 3.59 L, Hgb 11.1 L, Hct 32.7 L, MCV 91.1, MCH 30.9, MCHC 33.9, RDW Std Deviation 50.9 H, RDW Coeff of Veronica 15.3 H, Plt Count 123 L, MPV 8.5, Immature Gran % (Auto) 1.100 H, Neut % (Auto) 55.2, Lymph % (Auto) 31.2, [place] % (Auto) 6.2, Eos % (Auto) 5.4 H, Baso % (Auto) 0.9, Absolute Neuts (auto) 3.1, Absolute Lymphs (auto) 1.72, Nucleated RBC % 0, APTT 89.5 H, Sodium 134, Potassium 3.9, Chloride 102, Carbon Dioxide 21.6, Anion Gap 10, BUN 9, C reatinine 1.37 H, Estim Creat Clear Calc 63.22, Est GFR (MDRD) Non-Af 54 L, B UN/Creatinine Ratio 6.4 L, Glucose 168 H, Calcium 8.6 01/23/25 11:13: POC Glucose 141 H Microbiology: Microbiology 01/20/25 01:06 Urine Catheter - Marx Urine Culture - Final Yeast, not Callie albicans 01/20/25 00:35 Blood Culture (Wb) - Anticubital Right Blood Culture - Preliminary No growth in 48 hours. 01/20/25 00:43 Blood Culture (Wb) - Left Wrist Blood Culture - Preliminary No growth in 48 hours. Radiography Diagnostic Testing: Radiology Impression Venous Doppler Study 01/22/25 08:26 Interpretation Summary Acute deep vein thrombosis is noted in the entire right lower extremity deep venous system, including the right external iliac vein. Acute deep vein thrombosis is noted throughout the entire left lower extremity deep venous system, but for the left peroneal vein. Acute superficial thrombophlebitis is noted in the right great saphenous vein. The left great saphenous vein appears patent and compressible segmentally. Ordering Physician: Kadie Cheung Referring Physician: Maite Eng CRNP Performed By: Ximena Tate RVT D/C Instructions Discharge Activity: Return to Normal Activity DC O2, CPAP, BIPAP Needs Home O2 Discharge instructions: No Meaningful Use Info Meaningful Use Meaningful Use Diagnoses (Choose all that apply): None applicable Discharge Plan Admission Admit Date/Time: 01/20/25 02:25 Primary Reason for Your Visit: confusion/falls Attending Provider: Bisi Rivera Primary Care Provider: MAITE ENG Consulting Providers: Ute Hancock; Kadie Cheung Instructions Additional Instructions / Restrictions: 1. Leave Marx catheter in place and have follow-up with urology as patient does have significant urinary retention and this may be the etiology for his recurrent urinary tract infections and symptoms. Discharge Orders/Prescriptions Prescriptions: New Eliquis 5 mg Tablet 10 mg PO BID Qty: 28 0RF Rx Instructions: take for 7 days then transition to 5 mg BID Eliquis 5 mg tablet 5 mg PO BID Qty: 1 0RF Rx Instructions: Start on 01/31/2025 Continued allopurinol 100 MG tablet 100 mg PO DAILYCM insulin glargine [Basaglar KwikPen U-100 Insulin] 100 unit/mL (3 mL) insulin pen 75 unit subcut QPM tamsulosin 0.4 mg capsule 0.4 mg PO DAILY gabapentin 800 MG tablet 400 mg PO TIDCM Qty: 45 0RF donepezil 10 mg tablet 10 mg PO QHS Trulicity 3 mg/0.5 mL pen injector 3 mg subcut QWEEK duloxetine 60 mg capsule,delayed release(DR/EC) 60 mg PO DAILY lisinopril 2.5 mg tablet 2.5 mg PO DAILY pramipexole 0.125 mg tablet 0.125 mg PO BID ezetimibe 10 mg tablet 10 mg PO DAILY glipizide 10 mg tablet extended release 24hr 10 mg PO DAILY Jardiance 25 mg tablet 25 mg PO DAILY levothyroxine 50 mcg tablet 50 mcg PO DAILY trazodone 50 mg Tablet 100 mg PO QHS Rx Instructions: Home medication. quetiapine 50 mg tablet 50 mg PO DAILY acetaminophen 325 mg Tablet 650 mg PO Q4H PRN PRN (Reason: Fever, pain 1-02/10) Qty: 0 0RF sennosides-docusate sodium [Stimulant Laxative Plus] 8.6-50 mg Tablet 2 tab PO BID Qty: 0 0RF insulin lispro [Humalog KwikPen Insulin] 100 unit/mL Insulin Pen See Protocol subcut ACHS Qty: 0 0RF Protocol: 3. Sliding Scale Insulin Med Dosing Condition: 150-189 mg/dl = 1 unit Condition: 190-229 mg/dl = 2 units Condition: 230-269 mg/dl = 3 units Condition: 270-309 mg/dl = 4 units Condition: 310-349 mg/dl = 5 units Condition: 350-399 mg/dl = 6 units Condition: 400-449 mg/dl = 7 units Condition: Greater than 449 call physician Protocol Text: - Use for Total Daily Dose of Insulin 37-55 units - Obsese, infected, or steroid patients MEDIUM DOSING ALGORITHIM tramadol 50 mg tablet 50 mg PO TID 20 Days Qty: 60 0RF Referrals / Follow Up: MAITE ENG CRNP [Primary Care Provider, Family Practice] Radhames Brand MD [Med Staff - Active Staff, Urology] - Within 1 Week Disposition Disposition (needs filled in before D/C Order can be placed): [facility] Facility Charges/Coding Visit Charges Inpatient E&M: 37026 SNF Disch >30 Min
--- NOTE | 2025-01-23 13:21 | CASEMGMT ---
Precert obtained by [facility]. Patient has order to discharge today for skilled level of care at [facility]. 7000 completed. RN CM updated DC payroll administrative assistant to schedule transport, update family, and complete discharge to [facility].
--- NOTE | 2025-01-23 13:30 | PHA.DC_ITS ---
Pharmacy MA Med Reconciliation Pharmacy Service has performed discharge medication reconciliation for this patient. The patient's discharge medication list was reviewed for discrepancies and discrepancies were resolved. Medications at Discharge Home Medications allopurinol 100 mg tablet 100 mg PO DAILYCM gout 05/03/13 donepezil 10 mg tablet 10 mg PO QHS dementia 03/18/24 dulaglutide 3 mg/0.5 mL subcutaneous pen injector (Trulicity) 3 mg subcut QWEEK diabetes 03/18/24 duloxetine 60 mg capsule,delayed release 60 mg PO DAILY depression 03/18/24 empagliflozin 25 mg tablet (Jardiance) 25 mg PO DAILY diabetes 03/18/24 ezetimibe 10 mg tablet 10 mg PO DAILY cholesterol 03/18/24 glipizide 10 mg tablet, extended release 24 hr 10 mg PO DAILY diabetes 03/18/24 levothyroxine 50 mcg tablet 50 mcg PO DAILY thyroid 03/18/24 lisinopril 2.5 mg tablet 2.5 mg PO DAILY blood pressure 03/18/24 pramipexole 0.125 mg tablet 0.125 mg PO BID parkinsons 03/18/24 insulin glargine 100 unit/mL (3 mL) subcutaneous pen (Basaglar KwikPen U-100 Insulin) 75 unit subcut QPM diabetes 10/13/24 tamsulosin 0.4 mg capsule 0.4 mg PO DAILY urine flow 10/15/24 gabapentin 800 mg tablet 400 mg (1/2 x 800 mg) PO TIDCM nerve pain #45 tabs 10/19/24 quetiapine 50 mg tablet 50 mg PO DAILY mental health 01/07/25 trazodone 50 mg tablet 100 mg PO QHS sleep 01/07/25 acetaminophen 325 mg tablet 650 mg (2 x 325 mg) PO Q4H PRN PRN Fever, pain 1- 02/10 #0 tabs 01/10/25 insulin lispro 100 unit/mL subcutaneous pen (Humalog KwikPen (U-100) Insulin) See Protocol subcut ACHS #0 mL 01/10/25 sennosides 8.6 mg-docusate sodium 50 mg tablet (Stimulant Laxative Plus) 2 tab PO BID #0 tabs 01/10/25 tramadol 50 mg tablet 50 mg PO TID pain 20 days #60 tabs 01/10/25 apixaban 5 mg tablet (Eliquis) 5 mg PO BID #1 TAB 01/23/25 apixaban 5 mg tablet (Eliquis) 10 mg (2 x 5 mg) PO BID #28 tabs 01/23/25
[2025-01-23 13:55] VITALS: BP 125/62; PULSE 80; RESP 18; TEMP 36.3; O2SAT 98
--- NOTE | 2025-01-23 14:20 | CASEMGMT ---
Discharge Planning Discharge orders, signed med list and transport time sent to [facility]. Physicians will transport pt by wheelchair at 3:30p. Nursing, SW, pt, and his updated. Karolina Nur DC Planning Asst.
--- NOTE | 2025-01-23 14:39 | NURSING ---
Attempted to call report to [facility] twice to call report, no answer.
[2025-01-23 16:50] VITALS: BP 148/69; PULSE 73; RESP 16; TEMP 36.4; O2SAT 100
== END 2025-01-23 17:44 | disposition skilled nursing facility (03) | DRG 92 ==
LOC: ED 02:31 → PCU 02:36
PROVIDERS: Student in an Organized Health Care Education/Training Program; Admitting Provider Family Medicine; Emergency Provider Emergency Medicine; PCP Nurse Practitioner Family; Visit Provider Internal Medicine
DX: G92.8 Other toxic encephalopathy (principal); G93.40 Encephalopathy, unspecified; I82.413 Acute embolism and thrombosis of femoral vein, bilateral; I82.421 Acute embolism and thrombosis of right iliac vein; I82.433 Acute embolism and thrombosis of popliteal vein, bilateral; E87.20 Acidosis, unspecified; Z68.41 Body mass index [BMI] 40.0-44.9, adult; I47.10 Supraventricular tachycardia, unspecified; I82.451 Acute embolism and thrombosis of right peroneal vein; N13.8 Other obstructive and reflux uropathy; D69.6 Thrombocytopenia, unspecified; Z66 Do not resuscitate; G20.A1 Parkinson's disease without dyskinesia, without mention of fluctuations; F02.80 Dementia in other diseases classified elsewhere, unspecified severity, without behavioral disturbance, psychotic disturbance, mood disturbance, and anxiety; N18.30 Chronic kidney disease, stage 3 unspecified; E11.65 Type 2 diabetes mellitus with hyperglycemia; E03.9 Hypothyroidism, unspecified; I12.9 Hypertensive chronic kidney disease with stage 1 through stage 4 chronic kidney disease, or unspecified chronic kidney disease; D64.9 Anemia, unspecified; E11.40 Type 2 diabetes mellitus with diabetic neuropathy, unspecified; N18.32 Chronic kidney disease, stage 3b; E66.01 Morbid (severe) obesity due to excess calories; Z79.4 Long term (current) use of insulin; E11.22 Type 2 diabetes mellitus with diabetic chronic kidney disease; E78.5 Hyperlipidemia, unspecified; M10.9 Gout, unspecified; E86.0 Dehydration; G47.33 Obstructive sleep apnea (adult) (pediatric); F41.8 Other specified anxiety disorders; I95.9 Hypotension, unspecified; I82.462 Acute embolism and thrombosis of left calf muscular vein; R62.7 Adult failure to thrive; Z79.890 Hormone replacement therapy; R53.81 Other malaise; N40.1 Benign prostatic hyperplasia with lower urinary tract symptoms; Z79.899 Other long term (current) drug therapy; Z79.85 Long-term (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 of injectable non-insulin antidiabetic drugs; Z79.84 Long term (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 of oral hypoglycemic drugs; Z96.612 Presence of left artificial shoulder joint; R60.0 Localized edema; R53.1 Weakness; R79.89 Other specified abnormal findings of blood chemistry
CPT/HCPCS: 36415; 51702; 71045; 80048; 80053; 80076; 81001; 82140; 82962; 83605; 83735; 84145; 84443; 84484; 85025; 85610; 85730; 87040; 87086; 87088; 93970; 97110; 97116; 97162; 97166; 97530; 97535; 97802; 99285; A4216; J2405

== ENCOUNTER 2025-02-14 21:46 | Observation (INO) | payer MEDICARE, MEDICAID, SELFPAY ==
[2025-02-14 21:49] VITALS: BP 111/63; PULSE 87; RESP 18; TEMP 36.6; O2SAT 99; BMI 44.9
[2025-02-14 21:54] VITALS: BP 111/63; PULSE 87; RESP 18; TEMP 36.6; O2SAT 99
--- NOTE | 2025-02-14 22:10 | EKG12_ITS ---
Test Reason : DYSRHYTHMIA Blood Pressure : */* mmHG Vent. Rate : 83 BPM Atrial Rate : 83 BPM P-R Int : 202 ms QRS Dur : 138 ms QT Int : 418 ms P-R-T Axes : 47 0 106 degrees QTcB Int : 491 ms Normal sinus rhythm Left bundle branch block Abnormal ECG Confirmed by RICHARD KRUSE, SHON ([id number]), video news editor LIZETH HAMMONDS ([id number]) on 02/15/2025 10:55:48 AM Referred By: Confirmed By: SHON RAMOS MD
--- NOTE | 2025-02-14 22:13 | EDS_ITS ---
HPI History of Present Illness Chief Complaint: Confusion Narrative Narrative: Patient is a 74-year-old male presenting to the emergency department for visual hallucinations and intermittent confusion for the past 2 days. Patient has a past medical history of Parkinson's, dementia, insulin-dependent diabetes, hypothyroidism and frequent UTIs. Patient states that he has been having frequent visual hallucinations over the past 2 days which is how he gets when he has a UTI. States that he lives at home with his and son who help care for him. He reports being compliant with his medications. He denies any recent fever, chills, headache, chest pain, shortness of breath, abdominal pain, nausea or vomiting. States he has had a loss of appetite. He endorses some intermittent dysuria with no hematuria. Denies any focal numbness or weakness. Denies recent falls. [facility] Medical History Parkinson's disease BPH (benign prostatic hyperplasia) Hypothyroidism Anxiety and depression Chronic anemia Parkinsons disease HLD (hyperlipidemia) CKD (chronic kidney disease), stage III Insulin dependent diabetes mellitus Dementia Gout Diabetes HTN (hypertension) Home Medications Medication Instructions Recorded Last Taken Type allopurinol 100 mg tablet 100 mg PO DAILYCM gout 05/03 Unknown History donepezil 10 mg tablet 10 mg PO QHS dementia Unknown History dulaglutide 3 mg/0.5 mL 3 mg subcut QWEEK diabetes 1 05/18/23 Unknown History subcutaneous pen injector (Trulicity) duloxetine 60 mg capsule,delayed 60 mg PO DAILY depres francis 03/18/24 Unknown History release empagliflozin 25 mg tablet 25 mg PO DAILY diabetes Unknown History (Jardiance) ezetimibe 10 mg tablet 10 mg PO DAILY cholesterol 1 05/18/23 Unknown History glipizide 10 mg tablet, extended 10 mg PO DAILY diabet es 03/18/24 Unknown History release 24 hr levothyroxine 50 mcg tablet 50 mcg PO DAILY thyroid Unknown History lisinopril 2.5 mg tablet 2.5 mg PO DAILY blood pressu re 03/18/24 Unknown History pramipexole 0.125 mg tablet 0.125 mg PO BID parkinsons 03/18/24 Unknown History insulin glargine 100 unit/mL (3 75 unit subcut QPM gerard betes 10/13/24 Unknown History mL) subcutaneous pen (Basaglar KwikPen U-100 Insulin) tamsulosin 0.4 mg capsule 0.4 mg PO DAILY urine flow 0 10/15/24 Unknown History gabapentin 800 mg tablet 400 mg (1/2 x 800 mg) PO TID CM 10/19/24 Unknown Rx nerve pain #45 tabs quetiapine 50 mg tablet 50 mg PO DAILY mental health 01/07/25 Unknown History trazodone 50 mg tablet 100 mg PO QHS sleep 01/07/25 Unknown History acetaminophen 325 mg tablet 650 mg (2 x 325 mg) PO Q4H PRN PRN 01/10/25 Unknown Rx Fever, pain -02/10 #0 tabs insulin lispro 100 unit/mL See Protocol subcut ACHS #0 mL 01/10/25 Unknown Rx subcutaneous pen (Humalog KwikPen (U-100) Insulin) sennosides 8.6 mg-docusate sodium 2 tab PO BID #0 tabs 01/10/25 Unknown Rx 50 mg tablet (Stimulant Laxative Plus) apixaban 5 mg tablet (Eliquis) 5 mg PO BID #1 TAB 01/03 06/28 Unknown Rx tramadol 50 mg tablet 50 mg PO TID pain 30 days #9 0 tabs 01/24/25 Unknown Rx tizanidine 4 mg tablet 4 mg PO QPM 02/14/25 Unknown History Allergy/AdvReac Type Severity Reaction Status Date / Time ibuprofen AdvReac Abd Verified 02/14/25 21:49 cramps/diarrhea Family History Mother CVA (cerebral vascular accident) Heart disease Father CVA (cerebral vascular accident) Heart disease Surgical History History of left shoulder replacement H/O knee surgery Social History household members: spouse housing: house current occupational status: retired Smoking Status: Never smoker alcohol intake: never substance use type: does not use ROS ROS ED ROS Narrative see HPI EXAM Physical Exam Narrative Exam Narrative: Vital signs: Reviewed General: Alert and orientedx3. No acute distress. Chronically unwell appearing. HEENT: Head is normocephalic and atraumatic, sinuses nontender, pupils equal round and reactive. Nares are patent. Oropharynx and throat exams normal. Neck: Supple without lymphadenopathy nontender Cardiovascular: Regular rate and rhythm, no murmurs. No rubs or gallops. Normal S1 and S2 Respiratory: Clear to auscultation bilaterally. No wheezes, rales, rhonchi Abdominal: Soft and nontender. Normal bowel sounds. No guarding or rebound. Nonsurgical abdomen Extremities: Chronic venous stasis changes to bilateral lower extremities. No tenderness. No bruising. Normal range of motion. Normal sensation. Skin: No rash or redness. Neurological: Cranial nerves II through XII are grossly intact. Normal strength and sensation. Normal cerebellar function The rest of the physical exam is unremarkable Const Vital Signs: 02/14/25 21:49 02/14/25 21:54 02/14/25 22:48 Temperature 97.8 F 97.8 F Temperature Source Oral Oral Pulse Rate 87 87 88 Respiratory Rate 18 18 16 Blood Pressure 111/63 111/63 103/64 Blood Pressure Mean 79 79 77 Pulse Ox 99 99 96 Oxygen Delivery Method Room Air Room Air Room Air 02/14/25 23:00 Temperature Temperature Source Pulse Rate 75 Respiratory Rate 16 Blood Pressure 106/66 Blood Pressure Mean 79 Pulse Ox 95 Oxygen Delivery Method MDM MDM MDM Narrative Medical decision making narrative: Patient is a 74-year-old male presenting to the emergency department for visual hallucinations. Patient was seen and examined. Vitals are stable. Patient resting bed comfortably no acute distress. Differential includes but is not limited to: UTI, pneumonia, electrolyte abnormality, less likely ACS, stroke given physical exam, no focal neurologic findings. Patient is alert and oriented x 3 on my exam. He is able to provide a history. States that will be showing up soon. He reports he gets visual hallucinations when he has a urinary tract infection. Has no specific symptoms. Physical exam is unremarkable. CBC with no leukocytosis and chronic anemia of 12.1. BMP with no significant abnormalities. Baseline elevated glucose, consistent with his DM hx. Normal bicarb and anion gap, no signs of DKA or HHS. Baseline elevated Cr, normal BUN. Normalized platelets from prior at 150. EKG shows NSR with LBBB, similar to prior EKGS. No ischemic changes. CXR reviewed by myself, no opacities, pneumothorax. Radiology read with right perihilar linear opacities favoring atelectasis versus scar. Developing infiltrate is less likely given morphology. The heart is normal in size. Urinalysis with 2+ bacteria, greater than 100 WBCs and leukocyte esterase. I reviewed prior urine cultures which show yeast, not Callie. Patient given [address] brain done 01/06/25 with no acute abnormalities. I do not think patient requires a CT brain at this time with normal neurologic exam, alert and orientedx3. Family at bedside states that "he is not able to come home tonight". On further discussion with I expressed concern about the cycle of admission and the patient going home for short amount of time before being hospitalized yet again. She states that she cannot manage him at home when he has an infection and cannot ambulate due to weakness. With primary caregivers concerned that she cannot take care of him at this time due to his weakness patient will be admitted to the hospital for further management. Clinical impression: Visual hallucinations UTI Generalized weakness History & Record Review Discussion w/independent historian: Patient Additional record(s) reviewed:: Prior ED visit and Prior labs Lab Data Attestation: I reviewed the patient's lab results. Labs: Laboratory Results - last 24 hr 02/14/25 02/14/25 21:55 23:24 WBC 7.4 RBC 3.96 L Hgb 12.1 L Hct 37.5 L MCV 94.7 H MCH 30.6 MCHC 32.3 RDW Std Deviation 56.8 H RDW Coeff of Veronica 16.2 H Plt Count 150 MPV 8.9 Immature Gran % (Auto) 0.800 Neut % (Auto) 68.7 Lymph % (Auto) 21.2 [place] % (Auto) 5.5 Eos % (Auto) 3.0 Baso % (Auto) 0.8 Absolute Neuts (auto) 5.1 Absolute Lymphs (auto) 1.57 Nucleated RBC % 0 Sodium 135 Potassium 4.4 Chloride 101 Carbon Dioxide 22.1 Anion Gap 13 BUN 17 Creatinine 1.77 H Estim Creat Clear Calc 49.83 L Est GFR (MDRD) Non-Af 40 L BUN/Creatinine Ratio 9.8 L Glucose 212 H Calcium 9.2 Urine Color Yellow Urine Clarity Turbid Urine pH 6.0 Ur Specific [place] 1.015 Urine Protein 100 H Urine Glucose (UA) 1000 H Urine Ketones Negative Urine Occult Blood 150 H Urine Nitrite Negative Urine Bilirubin Negative Urine Urobilinogen Normal Ur Leukocyte Esterase 500 H Urine RBC 0-5 SEEN Urine WBC >100 SEEN Ur Squamous Epith Cells 0-5 SEEN Ur Renal Epithelial Cell 10-25 SEEN Urine Bacteria 2+ Urine Mucus 0 SEEN Radiography Chest X-Ray - ED: 2 View, Read by ED Physician, No Acute Disease and No Infiltrates Diagnostic Testing: Clinical Impression(s) from Imaging Studies Chest X-Ray 02/14/25 22:20 IMPRESSION: Probable atelectasis. Reading Location: [address] Discharge Plan Triage Chief Complaint: Confusion Other Complaint: Dizziness ED Provider: Lilly Hinojosa Dx/Rx/DC Orders Prescriptions: No Action allopurinol 100 MG tablet 100 mg PO DAILYCM insulin glargine [Basaglar KwikPen U-100 Insulin] 100 unit/mL (3 mL) insulin pen 75 unit subcut QPM tamsulosin 0.4 mg capsule 0.4 mg PO DAILY gabapentin 800 MG tablet 400 mg PO TIDCM Qty: 45 0RF tizanidine 4 mg tablet 4 mg PO QPM donepezil 10 mg tablet 10 mg PO QHS Trulicity 3 mg/0.5 mL pen injector 3 mg subcut QWEEK duloxetine 60 mg capsule,delayed release(DR/EC) 60 mg PO DAILY lisinopril 2.5 mg tablet 2.5 mg PO DAILY pramipexole 0.125 mg tablet 0.125 mg PO BID ezetimibe 10 mg tablet 10 mg PO DAILY glipizide 10 mg tablet extended release 24hr 10 mg PO DAILY Jardiance 25 mg tablet 25 mg PO DAILY levothyroxine 50 mcg tablet 50 mcg PO DAILY trazodone 50 mg Tablet 100 mg PO QHS Rx Instructions: Home medication. quetiapine 50 mg tablet 50 mg PO DAILY acetaminophen 325 mg Tablet 650 mg PO Q4H PRN PRN (Reason: Fever, pain 1-02/10) Qty: 0 0RF sennosides-docusate sodium [Stimulant Laxative Plus] 8.6-50 mg Tablet 2 tab PO BID Qty: 0 0RF insulin lispro [Humalog KwikPen Insulin] 100 unit/mL Insulin Pen See Protocol subcut ACHS Qty: 0 0RF Protocol: 3. Sliding Scale Insulin Med Dosing Condition: 150-189 mg/dl = 1 unit Condition: 190-229 mg/dl = 2 units Condition: 230-269 mg/dl = 3 units Condition: 270-309 mg/dl = 4 units Condition: 310-349 mg/dl = 5 units Condition: 350-399 mg/dl = 6 units Condition: 400-449 mg/dl = 7 units Condition: Greater than 449 call physician Protocol Text: - Use for Total Daily Dose of Insulin 37-55 units - Obsese, infected, or steroid patients MEDIUM DOSING ALGORITHIM Eliquis 5 mg tablet 5 mg PO BID Qty: 1 0RF Rx Instructions: Start on 01/31/2025 tramadol 50 mg tablet 50 mg PO TID 30 Days Qty: 90 0RF Primary Care Provider: ABHISHEK ST Referrals: ABHISHEK ST CRNP [Primary Care Provider, Family Practice] Print Language: Georgian
[2025-02-14 22:19] LABS: Hematocrit 37.5 % (40-54); Hemoglobin 12.1 g/dL (13.0-16.5); Immature Granulocytes Count 0.060 X10^3/uL (0.0-0.0); Mean Corp Hgb Conc 32.3 g/dL (32-36); Mean Corpuscular Volume 94.7 fL (80-94); Mean Platelet Vol. 8.9 fl (6.2-12.0); NRBC Flagged by Analyzer 0 % (0-5); Platelet Count 150 K/mm3 (150-450); RBC Distribution Width CV 16.2 % (11.6-14.6); RBC Distribution Width SD 56.8 fl (35.1-43.9); Red Blood Count 3.96 M/mm3 (4.6-6.2); White Blood Count 7.4 K/mm3 (4.4-11.0)
--- NOTE | 2025-02-14 22:20 | RAD_ITS ---
PROCEDURE: CHEST PA AND LATERAL 02/14/2025 REASON FOR EXAM: HALLUCINATIONS, RULE OUT PNEUMONIA TECHNIQUE: Procedure Code: RADCXR Modality: DX Procedure: CHEST PA AND LATERAL COMPARISON: 01/20/2025. FINDINGS: Right perihilar linear opacities favoring atelectasis versus scar. Developing infiltrate is less likely given morphology. The heart is normal in size. Left shoulder arthroplasty. RAD/Chest PA and Lateral IMPRESSION: Probable atelectasis. Reading Location: [id number]
[2025-02-14 22:37] LABS: Anion Gap 13 (5-15); BUN 17 mg/dL (4-19); BUN/Creat Ratio 9.8 RATIO (10-20); Calcium,Total 9.2 mg/dL (7.6-11.0); Carbon Dioxide 22.1 mmol/L (21.0-32.0); Chloride 101 mmol/L (98-108); Estimated Creatinine Clearance 49.83 ml/min (50-250); Glucose 212 mg/dL (70-99); Potassium 4.4 mmol/L (3.3-5.1)
[2025-02-14 22:48] VITALS: BP 103/64; PULSE 88; RESP 16; O2SAT 96
[2025-02-14 23:00] VITALS: BP 106/66; PULSE 75; RESP 16; O2SAT 95
[2025-02-14] MEDS: 0.9% Normal Saline (1000mL) 1,000 ML 1000 ML IV (23:03)
[2025-02-14 23:28] LABS: Mucous, Urine 0 SEEN /hpf (<or=2+)
[2025-02-14 23:30] LABS: Color, Urine Yellow (Yellow); Glucose, Dipstick 1000 mg/dl (Normal); Ketone-Dipstick Negative (Negative); Leukocyte Esterase-Dipstick 500 /ul (Negative); Nitrite-Dipstick Negative (Negative); Occult Blood-Urine 150 /ul (Negative); Protein-Dipstick 100 mg/dl (Negative); Specific Gravity, Urine 1.015 (1.002-1.030); Urine Bilirubin Dipstick Negative (Negative)
[2025-02-14 23:43] LABS: Red Blood Cells-Urine 0-5 SEEN /hpf (0-5); Squamous Epithelial Cells - UA 0-5 SEEN /hpf (0-5)
[2025-02-14 23:50] VITALS: BP 118/61; PULSE 76; RESP 18; TEMP 36.5; O2SAT 93
--- NOTE | 2025-02-14 23:52 | HP.PCM.HOS_ITS ---
HPI - General General Date of Admission: 02/15/25 Date of Service: 02/14/25 Chief Complaint: confusion HPI Narrative PATITO PORRAS, is a 74 M with a PMH as outlined who was admitted via the ED On 02/14/2025 with a complaitn of confusion and visual hallucinations. He has a history of Parkinson's disease with dementia and frequent UTIs. He was recently admitted in the hospital and January 2025 for similar complaints after he was discharged home for the dressing hold. He was managed there for UTI urinary retention and had a Marx catheter placed. He was discharged back to custodial facility and went home again and comes back this time with visual hallucinations and confusion for the past couple of days before admission. Family was concerned that this is how he got whenever he had a UTI. He lived at home with his and son who help care for him. He denied any fever or chills, admitted to some nausea but no vomiting, shortness of breath or abdominal pain. He admitted to intermittent dysuria. Review of systems otherwise negative. Vitals in the ED were blood pressure 118/61, pulse rate of 76, respiratory rate of 18 and temperature of 97.7 Fahrenheit. He was saturating at 93% on room air. CBC showed WBC of 7.4, hemoglobin of 12.1 and platelets of 150. Chemistry showed sodium of 135 with potassium of 4.4 and bicarb of 22.1. Anion gap was 13. Creatinine was 1.77 which is around his baseline. Urinalysis showed more than 100 WBC and 2+ bacteria which was similar to previous urinalysis. Leukocyte esterase was also 500 which was similar to previous urinalysis. Chest x-ray showed probable atelectasis in the right lower lobe with developing infiltrate less likely given morphology. He has been admitted to be managed for acute encephalopathy in the setting of Parkinson's disease with dementia with possible UTI. I question whether he has a UTI again as his urine is similar to previous urinalysis and it is likely chronic colonization. [facility] Medical History Parkinson's disease BPH (benign prostatic hyperplasia) Hypothyroidism Anxiety and depression Chronic anemia Parkinsons disease HLD (hyperlipidemia) CKD (chronic kidney disease), stage III Insulin dependent diabetes mellitus Dementia Gout Diabetes HTN (hypertension) Home Medications Medication Instructions Recorded Last Taken Type allopurinol 100 mg tablet 100 mg PO DAILYCM gout 05/03 Unknown History donepezil 10 mg tablet 10 mg PO QHS dementia Unknown History dulaglutide 3 mg/0.5 mL 3 mg subcut QWEEK diabetes 1 05/18/23 Unknown History subcutaneous pen injector (Trulicity) duloxetine 60 mg capsule,delayed 60 mg PO DAILY depres franics 03/18/24 Unknown History release empagliflozin 25 mg tablet 25 mg PO DAILY diabetes Unknown History (Jardiance) ezetimibe 10 mg tablet 10 mg PO DAILY cholesterol 1 05/18/23 Unknown History glipizide 10 mg tablet, extended 10 mg PO DAILY diabet es 03/18/24 Unknown History release 24 hr levothyroxine 50 mcg tablet 50 mcg PO DAILY thyroid Unknown History lisinopril 2.5 mg tablet 2.5 mg PO DAILY blood pressu re 03/18/24 Unknown History pramipexole 0.125 mg tablet 0.125 mg PO BID parkinsons 03/18/24 Unknown History insulin glargine 100 unit/mL (3 75 unit subcut QPM gerard betes 10/13/24 Unknown History mL) subcutaneous pen (Basaglar KwikPen U-100 Insulin) tamsulosin 0.4 mg capsule 0.4 mg PO DAILY urine flow 0 10/15/24 Unknown History gabapentin 800 mg tablet 400 mg (1/2 x 800 mg) PO TID CM 10/19/24 Unknown Rx nerve pain #45 tabs quetiapine 50 mg tablet 50 mg PO DAILY mental health 01/07/25 Unknown History trazodone 50 mg tablet 100 mg PO QHS sleep 01/07/25 Unknown History acetaminophen 325 mg tablet 650 mg (2 x 325 mg) PO Q4H PRN PRN 01/10/25 Unknown Rx Fever, pain -02/10 #0 tabs insulin lispro 100 unit/mL See Protocol subcut ACHS #0 mL 01/10/25 Unknown Rx subcutaneous pen (Humalog KwikPen (U-100) Insulin) sennosides 8.6 mg-docusate sodium 2 tab PO BID #0 tabs 01/10/25 Unknown Rx 50 mg tablet (Stimulant Laxative Plus) apixaban 5 mg tablet (Eliquis) 5 mg PO BID #1 TAB 01/03 06/28 Unknown Rx tramadol 50 mg tablet 50 mg PO TID pain 30 days #9 0 tabs 01/24/25 Unknown Rx tizanidine 4 mg tablet 4 mg PO QPM 02/14/25 Unknown History Allergy/AdvReac Type Severity Reaction Status Date / Time ibuprofen AdvReac Abd Verified 02/14/25 21:49 cramps/diarrhea Family History Mother CVA (cerebral vascular accident) Heart disease Father CVA (cerebral vascular accident) Heart disease Surgical History History of left shoulder replacement H/O knee surgery Social History household members: spouse housing: house current occupational status: retired Smoking Status: Never smoker alcohol intake: never substance use type: does not use ROS Constitutional Constitutional: Reports fatigue, malaise and weakness; Denies chills or fever(s) ENT HEENT: Denies headache(s) or sore throat Cardiovascular Cardiovascular: Denies chest pain, dyspnea on exertion, edema, lightheadedness, orthopnea, palpitations, paroxysmal nocturnal dyspnea, rapid heart rate or syncope Respiratory/Chest Respiratory/Chest: Denies cough, dyspnea, shortness of breath at rest or shortness of breath with exertion Gastrointestinal Gastrointestinal: Reports nausea; Denies abdominal pain, diarrhea or vomiting Genitourinary Genitourinary: Denies dysuria Neurologic Neurologic: Reports confusion; Denies dizziness, focal weakness, headache(s), numbness, seizure-like activity, seizures or syncope Psychiatric Psychiatric: Denies anxiety or depression Vital Signs Vital Signs Vital Signs: 02/14/25 21:49 02/14/25 21:54 02/14/25 22:48 Temperature 97.8 F 97.8 F Temperature Source Oral Oral Pulse Rate 87 87 88 Respiratory Rate 18 18 16 Blood Pressure 111/63 111/63 103/64 Blood Pressure Mean 79 79 77 Pulse Ox 99 99 96 Oxygen Delivery Method Room Air Room Air Room Air 02/14/25 23:00 02/14/25 23:50 Temperature 97.7 F L Temperature Source Pulse Rate 75 76 Respiratory Rate 16 18 Blood Pressure 106/66 118/61 Blood Pressure Mean 79 80 Pulse Ox 95 93 Oxygen Delivery Method Weight Weight: 304 lb 10.861 oz Body Mass Index (BMI) 44.9 Physical Exam Const alert and no apparent distress Constitutional Narrative: class III obesity, confusion has improved, he is AO x 3 to self, place and time General Appearance: cooperative HEENT normocephalic, head/scalp atraumatic and hearing grossly normal bilaterally HEENT Narrative: dry oral mucosal membranes Eyes PERRL, EOMs intact bilaterally and conjunctivae normal Neck supple and no JVD Resp normal respiratory effort, no retractions, no use of accessory muscles and clear to auscultation bilaterally Cardio regular rate, regular rhythm, S1 normal heart sound, S2 normal heart sound and no murmurs GI normal to inspection, nondistended, normoactive bowel sounds, soft to palpation and non-tender Extremity normal to inspection and full ROM Neuro moves all extremities Neuro Narrative: confused Sensorium / Orientation: awake and alert Psych affect normal Psych Narrative: confused Results Lab / Micro Data 02/14/25 21:55 02/14/25 21:55 Labs: Laboratory Results - last 24 hr 02/14/25 21:55: WBC 7.4, RBC 3.96 L, Hgb 12.1 L, Hct 37.5 L, MCV 94.7 H, MCH 30.6, MCHC 32.3, RDW Std Deviation 56.8 H, RDW Coeff of Veronica 16.2 H, Plt Count 150, MPV 8.9, Immature Gran % (Auto) 0.800, Neut % (Auto) 68.7, Lymph % (Auto) 21.2, [place] % (Auto) 5.5, Eos % (Auto) 3.0, Baso % (Auto) 0.8, Absolute Neuts (auto) 5.1, Absolute Lymphs (auto) 1.57, Nucleated RBC % 0, Sodium 135, Potassium 4.4, Chloride 101, Carbon Dioxide 22.1, Anion Gap 13, BUN 17, C reatinine 1.77 H, Estim Creat Clear Calc 49.83 L, Est GFR (MDRD) Non-Af 40 L, B UN/Creatinine Ratio 9.8 L, Glucose 212 H, Calcium 9.2 02/14/25 23:24: Urine Color Yellow, Urine Clarity Turbid, Urine pH 6.0, Ur Specific [place] 1.015, Urine Protein 100 H, Urine Glucose (UA) 1000 H, Urine Ketones Negative, Urine Occult Blood 150 H, Urine Nitrite Negative, Urine Bilirubin Negative, Urine Urobilinogen Normal, Ur Leukocyte Esterase 500 H, Urine RBC 0-5 SEEN, Urine WBC >100 SEEN, Ur Squamous Epith Cells 0-5 SEEN, Ur Renal Epithelial Cell 10-25 SEEN, Urine Bacteria 2+, Urine Mucus 0 SEEN Imaging Radiology Impression Chest X-Ray 02/14/25 22:20 IMPRESSION: Probable atelectasis. Reading Location: [address] Assessment & Plan Assessment/Plan (1) Visual hallucinations: (2) Encephalopathy: PLAN: Plan #Acute encephalopathy and visual hallucinations * This may be due to his Parkinson's disease with dementia. Patient has had recurrent UTIs and today's urinalysis does show 2+ bacteria and elevated leukocyte esterase and WBC but this is similar to prior urinalysis also. * Admit to MedSurg. * Get urine cultures. Hydrate gently with IV fluids. All previous urine cultures were positive for low growth of yeast, not Calile albicans. * Hold any sedative meds. Consult PT OT. Chest x-ray showed probable right- sided atelectasis but no evidence of infection. * started on IV ceftriaxone; will continue for now pending urine cultures * #Parkinson's disease with dementia * [facility] at least twice over the last few months. He is usually brought back to the hospital right after he goes back home and it appears that family is unable to cope with caring for him. * Consult PT OT and case management to help facilitate possible long-term placement if family is agreeable * On donepezil #Bilateral lower extremity DVT * Was recently diagnosed with bilateral lower extremity DVT extending up to the thigh during his most recent admission on 01/22/2025. Currently on Eliquis. I will continue. #Hyperlipidemia: On Zetia #Hypertension: on lisinporil. Will resume. IV hydralazine prn #CKD stage III: Creatinine at baseline. Will monitor #Anxiety and depression: On duloxetine #Hypothyroidism: On Synthroid #Thrombocytopenia: #Class III obesity: BMI is 45. Complicates acute care, expected recovery and prognosis. #BPH with obstructive pathology: * On Flomax. During his last admission was discharged home with a Marx catheter in situ to follow-up with urology on outpatient basis. * Marx catheter now out as it was taken out in the SNF before he was discharged home. * He is yet to see urology. Will get a bladder scan to evaluate for retention and re-insert Marx catheter as required. DVT prophylaxis: On Eliquis as stated above. CODE STATUS:DNRCCA no intubation * Patient and counseled extensively about different types of CODE STATUS including full code, DNR CCA and DNR CCA. * Patient and elect for him to be DNRCCA no intubation. * Total [id number] time 16 minutes. Charges/Coding Visit Charges Inpatient E&M: 65915 Init Hosp L3 Procedures Hospitalists Procedures: 12714 Advncd Care Plan 30 Min
[2025-02-14] MEDS: Ceftriaxone 2 GM in 0.9% Normal Saline (50mL MB+) 50 ML IV (23:55)
[2025-02-15] VITALS: BP 118/61; PULSE 74; RESP 16; O2SAT 97
[2025-02-15 00:43] VITALS: BMI 47.9
[2025-02-15 01:12] VITALS: BP 126/69; PULSE 77; RESP 20; TEMP 36.7; O2SAT 98
[2025-02-15] MEDS: 0.9% Saline Lock 10 ML Syringe IV (01:38)
[2025-02-15] MEDS: 0.9% Normal Saline (1000mL) 1,000 ML 125 ML IV ×2 (01:38→10:09)
[2025-02-15 06:20] VITALS: BP 113/61; PULSE 79; RESP 17; TEMP 36.8; O2SAT 96
[2025-02-15 07:39] LABS: Hematocrit 36.4 % (40-54); Hemoglobin 11.9 g/dL (13.0-16.5); Immature Granulocytes Count 0.090 X10^3/uL (0.0-0.0); Mean Corp Hgb Conc 32.7 g/dL (32-36); Mean Corpuscular Volume 93.8 fL (80-94); Mean Platelet Vol. 9.5 fl (6.2-12.0); NRBC Flagged by Analyzer 0 % (0-5); Platelet Count 141 K/mm3 (150-450); RBC Distribution Width CV 16.1 % (11.6-14.6); RBC Distribution Width SD 56.0 fl (35.1-43.9); Red Blood Count 3.88 M/mm3 (4.6-6.2); White Blood Count 7.1 K/mm3 (4.4-11.0)
--- NOTE | 2025-02-15 08:01 | PN.HOSP_ITS ---
Reason for Visit Chief Complaint: confusion Subjective Subjective 74-year-old gentleman admitted with acute metabolic encephalopathy secondary to UTI Objective Data Objective Data Vital Signs: Vital Signs Temp Pulse Resp BP Pulse Ox O2 Del Method 98.2 F 79 17 113/61 96 Room Air 02/15/25 06:20 02/15/25 06:20 02/15/25 06:20 02/15/25 06:20 02/15/25 06:20 02/15/25 06:20 Oxygen Delivery Method Room Air Weight: 147.1 kg Body Mass Index (BMI) 47.9 Intake & Output: Intake and Output for Last 24 Hours 02/13/25 02/14/25 02/15/25 23:59 23:59 23:59 Intake Total 1290 / 1290 Output Total 650 / 650 Balance 640 / 640 Lab / Micro Data 02/15/25 06:49 02/14/25 21:55 Labs: Laboratory Results - last 24 hr 02/14/25 21:55: WBC 7.4, RBC 3.96 L, Hgb 12.1 L, Hct 37.5 L, MCV 94.7 H, MCH 30.6, MCHC 32.3, RDW Std Deviation 56.8 H, RDW Coeff of Veronica 16.2 H, Plt Count 150, MPV 8.9, Immature Gran % (Auto) 0.800, Neut % (Auto) 68.7, Lymph % (Auto) 21.2, [place] % (Auto) 5.5, Eos % (Auto) 3.0, Baso % (Auto) 0.8, Absolute Neuts (auto) 5.1, Absolute Lymphs (auto) 1.57, Nucleated RBC % 0, Sodium 135, Potassium 4.4, Chloride 101, Carbon Dioxide 22.1, Anion Gap 13, BUN 17, C reatinine 1.77 H, Estim Creat Clear Calc 49.83 L, Est GFR (MDRD) Non-Af 40 L, B UN/Creatinine Ratio 9.8 L, Glucose 212 H, Calcium 9.2 02/14/25 23:24: Urine Color Yellow, Urine Clarity Turbid, Urine pH 6.0, Ur Specific [place] 1.015, Urine Protein 100 H, Urine Glucose (UA) 1000 H, Urine Ketones Negative, Urine Occult Blood 150 H, Urine Nitrite Negative, Urine Bilirubin Negative, Urine Urobilinogen Normal, Ur Leukocyte Esterase 500 H, Urine RBC 0-5 SEEN, Urine WBC >100 SEEN, Ur Squamous Epith Cells 0-5 SEEN, Ur Renal Epithelial Cell 10-25 SEEN, Urine Bacteria 2+, Urine Mucus 0 SEEN 02/15/25 01:13: POC Glucose 149 H 02/15/25 06:22: POC Glucose 114 H 02/15/25 06:49: WBC 7.1, RBC 3.88 L, Hgb 11.9 L, Hct 36.4 L, MCV 93.8, MCH 30.7, MCHC 32.7, RDW Std Deviation 56.0 H, RDW Coeff of Veronica 16.1 H, Plt Count 141 L, MPV 9.5, Immature Gran % (Auto) 1.300 H, Neut % (Auto) 61.7, Lymph % (Auto) 25.5, [place] % (Auto) 6.5, Eos % (Auto) 4.2, Baso % (Auto) 0.8, Absolute Neuts (auto) 4.4, Absolute Lymphs (auto) 1.81, Nucleated RBC % 0 Radiography Diagnostic Testing: Radiology Impression Chest X-Ray 02/14/25 22:20 IMPRESSION: Probable atelectasis. Reading Location: [address] Physical Exam Narrative GENERAL: cooperative but has some tremors at rest HEENT: Atraumatic; normocephalic EYES; Anicteric, Normal Conjunctiva NECK; supple, normal thyroid, RESPIRATORY: Diminished to auscultation CARDIOVASCULAR: Regular S1 S2, GI: soft, normoactive bowel sounds, : No Renal angle tenderness; EXTREMITIES: No edema, no clubbing, MUSCULOSKELETAL: no muscle wasting NEURO: Awake; no lateralizing signs. SKIN: Stasis dermatitis involving both lower extremity PSYCH; Flat affect Assessment & Plan Assessment/Plan (1) Visual hallucinations: (2) Encephalopathy: PLAN: Plan 74-year-old gentleman admitted with acute metabolic encephalopathy secondary to UTI 1 Acute metabolic encephalopathy Secondary to acute complicated cystitis.Urinalysis obtained on admission demonstrated pyuria as well as positive leukocyte esterase. Patient started on ceftriaxone urine culture sent 2. Parkinson's disease with dementia – Patient is on pramipexole as well as donepezil 3. Diabetes mellitus type II -patient's oral hypoglycemics held. Placed on long acting insulin, Accu-Cheks a.c. and at bedtime and covered with sliding scale insulin 4. Hypothyroidism – Patient is on levothyroxine home dose continued 5. Class III obesity with BMI of 47.9 – Complicating care weight loss advised 6. BPH with lower urinary obstructive symptoms - Patient treated with tamsulosin 7. Dyslipidemia – Patient is on his ezetimibe 8. Gout – On allopurinol 9. Recently diagnosed bilateral lower extremity DVT – Patient is on apixaban continue Time spent in the patient's overall evaluation,decision-making process, review of diagnostic data, adjustment of management, discussion with other providers, nursing nursing and ancillary staff involved in patient's care documentation, 50 Minutes Charges/Coding Visit Charges Inpatient E&M: 96801 [facility] L3
--- NOTE | 2025-02-15 08:13 | WOUNDNOTE ---
skin photo: bilateral buttocks
[2025-02-15 08:14] VITALS: BP 126/63; PULSE 77; RESP 18; TEMP 36.6; O2SAT 97
[2025-02-15 08:41] LABS: Anion Gap 9 (5-15); BUN 17 mg/dL (4-19); BUN/Creat Ratio 10.4 RATIO (10-20); Calcium,Total 8.6 mg/dL (7.6-11.0); Carbon Dioxide 22.8 mmol/L (21.0-32.0); Chloride 105 mmol/L (98-108); Estimated Creatinine Clearance 56.78 ml/min (50-250); Glucose 109 mg/dL (70-99); Potassium 4.0 mmol/L (3.3-5.1)
[2025-02-15] MEDS: APIXABAN 5 MG TABLET PO ×2 (10:10→22:02)
[2025-02-15] MEDS: Glucerna Shake 120 ML LIQUID PO ×2 (10:10→17:09)
[2025-02-15] MEDS: Pramipexole Di-HCl 0.125 MG Tablet PO ×2 (10:11→22:02)
[2025-02-15] MEDS: Senna/Docusate Sodium 1 Tablet 2 TABLET PO ×2 (10:11→22:02)
--- NOTE | 2025-02-15 12:20 | CASEMGMT ---
Addendum entered by Reggie Andrews 02/15/25 16:30: 1425: Dr Elder made aware of 's interest in palliative care. Order received for referral. Per , Raysa, PILO, has arranged to meet w/her and pt tomorrow @ 2:30 PM in pt's room to discuss palliative care. Original Note: RN CM router operator radial CM to room for initial transition planning/care coordination assessment. Pt has a history of dementia/forgetful. There is no family at bedside. RN CM placed call to pt's , Ariadna, who is agreeable to talking w/RN CM. Care providers, pharmacy, and demographics verified. Strata: 3 PCP: PILO, Maite Eng (does home visits). states pt has an appt for her to come see him @ the beginning of March, but she states she will call to get an earlier appt d/t hospital admission. Specialists: Denies Preferred Pharmacy: [facility]. would like to get any new meds @ dc from [facility] Retail pharmacy. Insurance: Aurea Corcoran, [facility] Prescription Benefit: Yes LNOK: Ariadna (W), Lori (Dtr) Living Arrangements: Pt and just recently moved into their grand-daughter & grand-daughter's home. They live in a one-story home w/3 steps to enter ADLs/IADLs: Pt's provides total care and states that pt mostly stays in bed. She states since pt returned home from [facility] about 2 weeks ago, he has only been out of bed twice to sit up in W/C, stating, "He's happier in the bed". She assists him to BSC as needed. Pt is sponge-bathed & she manages his medications. Passport: states pt has a CM through [employer], Janae Yan. He has aides through [facility] that come 7 days/week for 6 hrs/day. Call placed to [facility] & they were notified of pt's admission. Message left on Janae'palomo notifying her of pt's change of address, as states she does not think she has notified them yet. Transportation: Pt states that she transports the pt but that it is very difficult to get pt in/out of the home. She states it took 3-4 people to get him into their home a couple weeks ago when returning home from [facility]. They do not have a ramp entrance. SUKHI, Silvina, to provide resources for possible assistance w/ramp expenses. DME: Functioning [employer] with sufficient supplies ( states she only checks BS about once a month). Lift chair. BSC. FWW. W/C. Pt has had a hospital bed for about 4 years. She states they recently got a new one d/t the last one broke. She states it is difficult to turn pt qeiv-dt-syat d/t his size to try and turn him off of his bottom. They do have a shower chair, however, just sponge-bathes pt now. HHC/SNF: [facility] (SNF in [place]). [facility], [facility]. Pt is active w/[facility]. Discussed discharge planning and long-term goals. would like for pt to discharge home and would like to resume /[facility]. She declines wanting list of other HHC agencies, stating she is happy w/[facility]. Pt is has SN, PT/OT. SW added. states she wishes to keep patient @ home as long as possible, stating she will continue to provide care for him as long as she is able to. Palliative Care: inquired about Palliative Care. Information provided/questions answered. Will notify Dr Elder of 's interest in same. voices appreciation for information & support provided. She denies having further questions or further discharge needs at this time. Made aware to ask for CM if any further discharge needs or questions arise. Plan: Home w/[facility] H[facility], CM through [facility] aide services. See CM readmission intervention for readmission follow-up. Gissell CRISTOBALN RN CM
[2025-02-15 14:33] VITALS: BP 150/65; PULSE 81; RESP 17; TEMP 36.9; O2SAT 97
--- NOTE | 2025-02-15 14:34 | CASEMGMT ---
Social Work- SW met with pt and provided resources for ramp modification to home. SW introduced self and role. SW provided crippled childrens fund application, as well as [facility] and metro information. SW verified directives and requested documents to be scanned into chart. Pt reports no additional needs at this time. SW remains available to follow. MICAELA Josue
--- NOTE | 2025-02-15 14:43 | CHAPLAIN ---
Type of Pastoral Visit _x__ Initial Visit ___ Follow-up Visit ___ On-call Visit ___ General Patient Visit ___ Spiritual Assessment ___ Family Conference ___ Bereavement ___ Rapid Response ___ Code Blue ___ Other (describe below) Pastoral Care Referral From _x__ Patient ___ Family ___ Nurse ___ Physician ___ Clinical Faculty ___ Communications Department Head ___ Other (describe below) Sacrament/Intervention _x__ Active listening ___ Anointing ___ Denominational ___ Bereavement ___ Communion ___ Ximena exploration ___ ___ Life review _x__ Prayer ___ Reconciliation ___ Sacrament of Sick _x__ Supportive presence ___ Wedding ___ Other (describe below) Pastoral Comments patient is resting in bed and listening to the TV; pt is welcoming and asks how the day is going for this reporting coordinator; pt answers questions and indicates that he is doing fine and is okay with being in the hospital; pt wants to stay until he knows he is feeling better; pt is open to presence and prayer today for spiritual care
--- NOTE | 2025-02-15 20:45 | PCM.HOSP.N ---
Hospitalist Note Serum glucose this AM 109, fingerstick glucometer checks 114-135; Ariadna states that pt does not eat as well as if he were at home d/t "not liking hospital food." She expresses concerns that his blood sugar may "bottom out" if he gets the full 75units of glargine nightly. I adjusted the glargine to 50units SC QHS and will monitor his fingerstick checks and serum glucose values.
[2025-02-15 21:53] VITALS: BP 155/69; PULSE 85; RESP 18; TEMP 36.7; O2SAT 99
[2025-02-15] MEDS: Insulin Glargine-YFGN 100 UNIT/ML Pen 50 UNIT SC (22:02)
[2025-02-16 03:15] VITALS: BP 130/63; PULSE 74; RESP 16; TEMP 36.6; O2SAT 98
[2025-02-16 05:58] LABS: Hematocrit 33.9 % (40-54); Hemoglobin 11.3 g/dL (13.0-16.5); Immature Granulocytes Count 0.060 X10^3/uL (0.0-0.0); Mean Corp Hgb Conc 33.3 g/dL (32-36); Mean Corpuscular Volume 93.9 fL (80-94); Mean Platelet Vol. 8.7 fl (6.2-12.0); NRBC Flagged by Analyzer 0 % (0-5); Platelet Count 112 K/mm3 (150-450); RBC Distribution Width CV 15.9 % (11.6-14.6); RBC Distribution Width SD 55.4 fl (35.1-43.9); Red Blood Count 3.61 M/mm3 (4.6-6.2); White Blood Count 6.1 K/mm3 (4.4-11.0)
[2025-02-16 07:33] VITALS: BP 132/62; PULSE 62; RESP 18; TEMP 36.6; O2SAT 100
[2025-02-16] MEDS: Pramipexole Di-HCl 0.125 MG Tablet PO ×2 (08:00)
[2025-02-16] MEDS: Senna/Docusate Sodium 1 Tablet 2 TABLET PO (08:01)
[2025-02-16] MEDS: APIXABAN 5 MG TABLET PO (08:03)
--- NOTE | 2025-02-16 08:12 | PCM.PN.HOSP ---
Reason for Visit Chief Complaint: confusion Subjective Subjective Patient seen had an uneventful evening. Awaiting urine cultures Objective Data Objective Data Vital Signs: Vital Signs Temp Pulse Resp BP Pulse Ox O2 Del Method 97.9 F 62 18 132/62 H 100 Room Air 02/16/25 07:33 02/16/25 07:33 02/16/25 07:33 02/16/25 07:33 02/16/25 07:33 02/16/25 07:52 Oxygen Delivery Method Room Air Weight: 147.1 kg Body Mass Index (BMI) 47.9 Intake & Output: Intake and Output for Last 24 Hours 02/14/25 02/15/25 02/16/25 23:59 23:59 23:59 Intake Total 3540 / 3540 Output Total 1250 / 1250 300 / 300 Balance 2290 / 2290 -300 / -300 Lab / Micro Data 02/16/25 05:50 02/15/25 06:49 Labs: Laboratory Results - last 24 hr 02/15/25 06:49: Sodium 137, Potassium 4.0, Chloride 105, Carbon Dioxide 22.8, Anion Gap 9, BUN 17, Creatinine 1.61 H, Estim Creat Clear Calc 56.78, Est GFR (MDRD) Non-Af 44 L, BUN/Creatinine Ratio 10.4, Glucose 109 H, Calcium 8.6 02/15/25 11:29: POC Glucose 135 H 02/15/25 16:09: POC Glucose 116 H 02/15/25 21:49: POC Glucose 147 H 02/16/25 05:50: WBC 6.1, RBC 3.61 L, Hgb 11.3 L, Hct 33.9 L, MCV 93.9, MCH 31.3, MCHC 33.3, RDW Std Deviation 55.4 H, RDW Coeff of Veronica 15.9 H, Plt Count 112 L, MPV 8.7, Immature Gran % (Auto) 1.000 H, Neut % (Auto) 55.0, Lymph % (Auto) 30.3, [place] % (Auto) 7.7, Eos % (Auto) 5.3 H, Baso % (Auto) 0.7, Absolute Neuts (auto) 3.4, Absolute Lymphs (auto) 1.84, Nucleated RBC % 0 02/16/25 06:16: POC Glucose 117 H Physical Exam Narrative GENERAL: cooperative but has some tremors at rest HEENT: Atraumatic; normocephalic EYES; Anicteric, Normal Conjunctiva NECK; supple, normal thyroid, RESPIRATORY: Diminished to auscultation CARDIOVASCULAR: Regular S1 S2, GI: soft, normoactive bowel sounds, : No Renal angle tenderness; EXTREMITIES: No edema, no clubbing, MUSCULOSKELETAL: no muscle wasting NEURO: Awake; no lateralizing signs. SKIN: Stasis dermatitis involving both lower extremity PSYCH; Flat affect Assessment & Plan Assessment/Plan (1) Visual hallucinations: (2) Encephalopathy: PLAN: Plan 74-year-old gentleman admitted with acute metabolic encephalopathy secondary to UTI 1 Acute metabolic encephalopathy Secondary to acute complicated cystitis.Urinalysis obtained on admission demonstrated pyuria as well as positive leukocyte esterase. Patient started on ceftriaxone urine culture sent – 02/16/2025; patient sensorium back to baseline 2. Acute cystitis – Patient started on ceftriaxone on admission urine culture still pending. 3. Parkinson's disease with dementia – Patient is on pramipexole as well as donepezil 4. Diabetes mellitus type II -patient's oral hypoglycemics held. Placed on long acting insulin, Accu-Cheks a.c. and at bedtime and covered with sliding scale insulin 5. Hypothyroidism – Patient is on levothyroxine home dose continued 6. BPH with lower urinary obstructive symptoms - Patient treated with tamsulosin 7. Dyslipidemia – Patient is on his ezetimibe 8. Gout – On allopurinol 9. 5. Class III obesity with BMI of 47.9 – Complicating care weight loss advised 10. Recently diagnosed bilateral lower extremity DVT – Patient is on apixaban continue Time spent in the patient's overall evaluation,decision-making process, review of diagnostic data, adjustment of management, discussion with other providers, nursing nursing and ancillary staff involved in patient's care documentation, 38 Minutes Charges/Coding Visit Charges Inpatient E&M: 44096 [facility] L2
--- NOTE | 2025-02-16 08:16 | PCM.CONS.P ---
[facility] Medical History Parkinson's disease BPH (benign prostatic hyperplasia) Hypothyroidism Anxiety and depression Chronic anemia Parkinsons disease HLD (hyperlipidemia) CKD (chronic kidney disease), stage III Insulin dependent diabetes mellitus Dementia Gout Diabetes HTN (hypertension) Home Medications Medication Instructions Recorded Last Taken Type allopurinol 100 mg tablet 100 mg PO DAILYCM gout 05/03/13 Unknown History donepezil 10 mg tablet 10 mg PO QHS dementia 03/18/24 Unknown History dulaglutide 3 mg/0.5 mL 3 mg subcut QWEEK diabetes 03/18/24 Unknown History subcutaneous pen injector (Trulicity) duloxetine 60 mg capsule,delayed 60 mg PO DAILY depression 03/18/24 Unknown History release empagliflozin 25 mg tablet 25 mg PO DAILY diabetes 03/18/24 Unknown History (Jardiance) ezetimibe 10 mg tablet 10 mg PO DAILY cholesterol 03/18/24 Unknown History glipizide 10 mg tablet, extended 10 mg PO DAILY diabetes 03/18/24 Unknown History release 24 hr levothyroxine 50 mcg tablet 50 mcg PO DAILY thyroid 03/18/24 Unknown History lisinopril 2.5 mg tablet 2.5 mg PO DAILY blood pressure 03/18/24 Unknown History pramipexole 0.125 mg tablet 0.125 mg PO BID parkinsons 03/18/24 Unknown History insulin glargine 100 unit/mL (3 75 unit subcut QPM diabetes 10/13/24 Unknown History mL) subcutaneous pen (Basaglar KwikPen U-100 Insulin) tamsulosin 0.4 mg capsule 0.4 mg PO DAILY urine flow 10/15/24 Unknown History gabapentin 800 mg tablet 400 mg (1/2 x 800 mg) PO TIDCM 10/19/24 Unknown Rx nerve pain #45 tabs quetiapine 50 mg tablet 50 mg PO DAILY mental health 01/07/25 Unknown History trazodone 50 mg tablet 100 mg PO QHS sleep 01/07/25 Unknown History acetaminophen 325 mg tablet 650 mg (2 x 325 mg) PO Q4H PRN PRN 01/10/25 Unknown Rx Fever, pain 1-10 #0 tabs insulin lispro 100 unit/mL See Protocol subcut ACHS #0 mL 01/10/25 Unknown Rx subcutaneous pen (Humalog KwikPen (U-100) Insulin) sennosides 8.6 mg-docusate sodium 2 tab PO BID #0 tabs 01/10/25 Unknown Rx 50 mg tablet (Stimulant Laxative Plus) apixaban 5 mg tablet (Eliquis) 5 mg PO BID #1 TAB 01/23/25 Unknown Rx tramadol 50 mg tablet 50 mg PO TID pain 30 days #90 tabs 01/24/25 Unknown Rx tizanidine 4 mg tablet 4 mg PO QPM 02/14/25 Unknown History Allergy/AdvReac Type Severity Reaction Status Date / Time ibuprofen AdvReac Abd Verified 02/14/25 21:49 cramps/diarrhea Family History Mother CVA (cerebral vascular accident) Heart disease Father CVA (cerebral vascular accident) Heart disease Surgical History History of left shoulder replacement H/O knee surgery Social History household members: spouse housing: house current occupational status: retired Smoking Status: Never smoker alcohol intake: never substance use type: does not use HPI Current admission Current Code Status: DNRCC-A no intubation Associated Diagnosis: encephalopathy Consult Data Date of Consult: 02/15/25 Location of consult: [place] [facility] Reason for referral: [facility] Referral source: SW/hospitalist Palliative care diagnosis (Summary list): encephalopathy, hallucinations, Parkinson's Palliative care services/treatment (Accepted, as consult): accepted HPI Narrative HPI Narrative: PAIN ASSESSMENT Location: [ ] Quality: [ ] Severity/Quantity: [ ] Timing/Frequency: [ ] Context: [ ] Factors that make it better/worse: [ ] Associated signs & symptoms: [ ] PATITO PORRAS, is a 74 M who presents [ ] Prior to meeting with the pt at bedside, I reviewed current and previous documentation, labs and radiological studies. I did receive a verbal consult yesterday and was able to speak with the pts on the phone. I introduced myself and the concept of palliative care which she voluntarily accepted our services. She was open to scheduling an in person meeting for 02/16 at 1430. I did meet with the patient, Oscar, prior to family meeting in which I did introduce myself. per hospitalist: "PATITO PORRAS, is a 74 M with a PMH as outlined who was admitted via the ED On 02/14/2025 with a complaitn of confusion and visual hallucinations. He has a history of Parkinson's disease with dementia and frequent UTIs. He was recently admitted in the hospital and January 2025 for similar complaints after he was discharged home for the dressing hold. He was managed there for UTI urinary retention and had a Marx catheter placed. He was discharged back to senior care facility and went home again and comes back this time with visual hallucinations and confusion for the past couple of days before admission. Family was concerned that this is how he got whenever he had a UTI. He lived at home with his and son who help care for him. He denied any fever or chills, admitted to some nausea but no vomiting, shortness of breath or abdominal pain. He admitted to intermittent dysuria. Review of systems otherwise negative. Vitals in the ED were blood pressure 118/61, pulse rate of 76, respiratory rate of 18 and temperature of 97.7 Fahrenheit. He was saturating at 93% on room air. CBC showed WBC of 7.4, hemoglobin of 12.1 and platelets of 150. Chemistry showed sodium of 135 with potassium of 4.4 and bicarb of 22.1. Anion gap was 13. Creatinine was 1.77 which is around his baseline. Urinalysis showed more than 100 WBC and 2+ bacteria which was similar to previous urinalysis. Leukocyte esterase was also 500 which was similar to previous urinalysis. Chest x-ray showed probable atelectasis in the right lower lobe with developing infiltrate less likely given morphology. He has been admitted to be managed for acute encephalopathy in the setting of Parkinson's disease with dementia with possible UTI. I question whether he has a UTI again as his urine is similar to previous urinalysis and it is likely chronic colonization." Palliative Assessment Advanced Directive - Current Admission Advance Directive: Advance Directive ON ADMISSION - REFERENCE Which Advance Directives None 02/15/25 00:43 documents are scanned in? Do you have a Healthcare No 02/14/25 21:49 Living Will? Do you have a Healthcare Power No 02/14/25 21:49 of De Alcoholizer? Do You Want Additional Declined 02/14/25 21:49 Information on Advanced Directives or Objective Data Objective Data Vital Signs: Vital Signs Temp Pulse Resp BP Pulse Ox O2 Del Method 97.9 F 62 18 132/62 H 100 Room Air 02/16/25 07:33 02/16/25 07:33 02/16/25 07:33 02/16/25 07:33 02/16/25 07:33 02/16/25 07:52 Oxygen Delivery Method Room Air Weight: 324 lb 4.8 oz Body Mass Index (BMI) 47.9 Intake & Output: Intake and Output for Last 24 Hours 02/14/25 02/15/25 02/16/25 23:59 23:59 23:59 Intake Total 3540 / 3540 Output Total 1250 / 1250 300 / 300 Balance 2290 / 2290 -300 / -300 Lab / Micro Data 02/16/25 05:50 02/15/25 06:49 Labs: Laboratory Results - last 24 hr 02/15/25 06:49: Sodium 137, Potassium 4.0, Chloride 105, Carbon Dioxide 22.8, Anion Gap 9, BUN 17, Creatinine 1.61 H, Estim Creat Clear Calc 56.78, Est GFR (MDRD) Non-Af 44 L, BUN/Creatinine Ratio 10.4, Glucose 109 H, Calcium 8.6 02/15/25 11:29: POC Glucose 135 H 02/15/25 16:09: POC Glucose 116 H 02/15/25 21:49: POC Glucose 147 H 02/16/25 05:50: WBC 6.1, RBC 3.61 L, Hgb 11.3 L, Hct 33.9 L, MCV 93.9, MCH 31.3, MCHC 33.3, RDW Std Deviation 55.4 H, RDW Coeff of Veronica 15.9 H, Plt Count 112 L, MPV 8.7, Immature Gran % (Auto) 1.000 H, Neut % (Auto) 55.0, Lymph % (Auto) 30.3, [place] % (Auto) 7.7, Eos % (Auto) 5.3 H, Baso % (Auto) 0.7, Absolute Neuts (auto) 3.4, Absolute Lymphs (auto) 1.84, Nucleated RBC % 0 02/16/25 06:16: POC Glucose 117 H Impressions & Recommendations Encouter Achieved as a result of this Palliative Care Encounter: [ ] minutes were spent in total for this visit which consisted, primarily of counseling and education dealing with the complex and emotionally intense issues of symptom management and palliative care in the setting of serious and potentially life-threatening illness. Review of documentation, labs and radiological studies. Patient/family had the opportunity to ask questions
--- NOTE | 2025-02-16 10:00 | CON.PCM.PA_ITS ---
[facility] Medical History Parkinson's disease BPH (benign prostatic hyperplasia) Hypothyroidism Anxiety and depression Chronic anemia Parkinsons disease HLD (hyperlipidemia) CKD (chronic kidney disease), stage III Insulin dependent diabetes mellitus Dementia Gout Diabetes HTN (hypertension) Home Medications Medication Instructions Recorded Last Taken Type allopurinol 100 mg tablet 100 mg PO DAILYCM gout 05/03 Unknown History donepezil 10 mg tablet 10 mg PO QHS dementia Unknown History dulaglutide 3 mg/0.5 mL 3 mg subcut QWEEK diabetes 1 05/18/23 Unknown History subcutaneous pen injector (Trulicity) duloxetine 60 mg capsule,delayed 60 mg PO DAILY depres francis 03/18/24 Unknown History release empagliflozin 25 mg tablet 25 mg PO DAILY diabetes Unknown History (Jardiance) ezetimibe 10 mg tablet 10 mg PO DAILY cholesterol 1 05/18/23 Unknown History glipizide 10 mg tablet, extended 10 mg PO DAILY diabet es 03/18/24 Unknown History release 24 hr levothyroxine 50 mcg tablet 50 mcg PO DAILY thyroid Unknown History lisinopril 2.5 mg tablet 2.5 mg PO DAILY blood pressu re 03/18/24 Unknown History pramipexole 0.125 mg tablet 0.125 mg PO BID parkinsons 03/18/24 Unknown History insulin glargine 100 unit/mL (3 75 unit subcut QPM gerard betes 10/13/24 Unknown History mL) subcutaneous pen (Okaglmarquise Zamora U-100 Insulin) tamsulosin 0.4 mg capsule 0.4 mg PO DAILY urine flow 0 10/15/24 Unknown History gabapentin 800 mg tablet 400 mg (1/2 x 800 mg) PO TID CM 10/19/24 Unknown Rx nerve pain #45 tabs quetiapine 50 mg tablet 50 mg PO DAILY mental health 01/07/25 Unknown History trazodone 50 mg tablet 100 mg PO QHS sleep 01/07/25 Unknown History acetaminophen 325 mg tablet 650 mg (2 x 325 mg) PO Q4H PRN PRN 01/10/25 Unknown Rx Fever, pain -02/10 #0 tabs insulin lispro 100 unit/mL See Protocol subcut ACHS #0 mL 01/10/25 Unknown Rx subcutaneous pen (Humalog KwikPen (U-100) Insulin) sennosides 8.6 mg-docusate sodium 2 tab PO BID #0 tabs 01/10/25 Unknown Rx 50 mg tablet (Stimulant Laxative Plus) apixaban 5 mg tablet (Eliquis) 5 mg PO BID #1 TAB 01/03 06/28 Unknown Rx tramadol 50 mg tablet 50 mg PO TID pain 30 days #9 0 tabs 01/24/25 Unknown Rx tizanidine 4 mg tablet 4 mg PO QPM 02/14/25 Unknown History Allergy/AdvReac Type Severity Reaction Status Date / Time ibuprofen AdvReac Abd Verified 02/14/25 21:49 cramps/diarrhea Family History Mother CVA (cerebral vascular accident) Heart disease Father CVA (cerebral vascular accident) Heart disease Surgical History History of left shoulder replacement H/O knee surgery Social History household members: spouse housing: house current occupational status: retired Smoking Status: Never smoker alcohol intake: never substance use type: does not use ROS Review of Systems ROS Unobtainable: Denies due to encephalopathy, due to endotracheal tube, due to mental condition or due to mental status Constitutional Constitutional: Reports fatigue and weakness; Denies anorexia, change in weight, chills, fever(s) or night sweats Eyes Eyes: Denies blurry vision, change in vision, eye pain or loss of vision ENT HEENT: Denies abnormal hearing, dysphagia, headache(s), hearing loss, nasal congestion or sore throat Cardiovascular Cardiovascular: Reports edema; Denies chest pain, dyspnea on exertion, lightheadedness, orthopnea, palpitations, paroxysmal nocturnal dyspnea or syncope Respiratory/Chest Respiratory/Chest: Denies cough, dyspnea, shortness of breath at rest, shortness of breath with exertion or wheezing Gastrointestinal Gastrointestinal: Reports constipation; Denies abdominal pain, diarrhea, dyspepsia, hematemesis, hematochezia, nausea or vomiting Genitourinary Genitourinary: Denies dysuria, hematuria, nocturia, urinary frequency, urinary hesitancy, urinary incontinence or urinary urgency Musculoskeletal Musculoskeletal: Denies back pain, joint pain, joint swelling or neck pain Integumentary Integumentary: Reports as per HPI Neurologic Neurologic: Reports confusion; Denies disequilibrium, dizziness, focal weakness, headache(s), paresthesias, seizures or tremor(s) Psychiatric Psychiatric: Denies anxiety, depression, homicidal ideation or suicidal ideation Endocrine Endocrinology: Denies change in body appearance, polydipsia or polyuria Hematologic/Lymphatic Hematologic/Lymphatic: Denies easy bleeding, easy bruising or lymphadenopathy Allergic/Immunologic Allergic/Immunologic: Denies rhinitis, eczemia or asthma Physical Exam Const alert and oriented x3 Constitutional Narrative: Patient was able to tell me his name and date of . I did wake him up and upon waking he [place]. After he was more awake he did tell me that he was in the hospital, he was able to tell me the year and the president. General Appearance: cooperative HEENT normocephalic Eyes PERRL Lymph Lymphatic: lymphedema Lymphatic Narrative: Bilateral lower extremities. Resp normal respiratory effort, normal air movement and clear to auscultation bilaterally Cardio regular rate and regular rhythm GI normal to inspection, nondistended, normoactive bowel sounds Extremity normal capillary refill Skin Skin Narrative: Discoloration of bilateral lower extremities most likely related to lymphedema. Neuro Speech: speech normal Gait (Neuro): unable to assess gait Psych affect normal Charges/Coding Palliative Care Palliative Care: [id number] New Pt Consult 80+ min HPI Current admission Current Code Status: DNRCC-A no intubation Associated Diagnosis: encephalopathy, hallucinations, Parkinson's, dementia Consult Data Date of Consult: 02/16/25 Location of consult: [facility] Reason for referral: goals of care Referral source: SW and hospitalist Palliative care diagnosis (Summary list): repeated hospitalizations, encephalopathy, Parkinson's, Dementia Palliative care services/treatment (Accepted, as consult): acepted Case discussed with referring provider: Goals HPI Narrative HPI Narrative: PAIN ASSESSMENT Denies Pain Prior to meeting with the patient at bedside I reviewed labs, documentation from this visit and previous visits as well as radiological studies. I then met with the patient down at bedside. I introduced myself and the concept of palliative care in which he voluntarily excepted our services. I was getting a verbal consult yesterday in which I did reach out to the patient's and scheduled a family meeting for today at 1430 to discuss goals of care. On initially talking to the patient he stated that [place] Once he woke up more fully he was able to tell me he was in the hospital. He is currently alert and oriented x 3 although he did have moments of confusion. He did state that his ultimate goal is to return home. I did ask if he would be open to SNF placement if needed and he stated "we will see." I was able to perform a review of systems as well as physical assessment. I then met with the patient and his , Ariadna in his room for family meeting. I was able to give her an updated list of palliative care providers in her area in which she stated she wants to have palliative care on outpatient basis. [facility]. I did send the hospice volunteer and updated message about family request I also updated the social human services assistants to place the referral. Ariadna did receive a message that the patient's primary care provider was going to "dropped him" as the patient because of canceled appointment. Ariadna plans to reach out to the primary care provider to see if they will allow that [place] as they have only canceled 1 appointment because they are paying for her [id number] and "funds were low at the time." All questions had were answered. The patient had no questions. Ariadna is open to the patient going to rehab if needed following hospitalization. per hospitalist: "PATITO PORRAS, is a 74 M with a PMH as outlined who was admitted via the ED On 02/14/2025 with a complaitn of confusion and visual hallucinations. He has a history of Parkinson's disease with dementia and frequent UTIs. He was recently admitted in the hospital and January 2025 for similar complaints after he was discharged home for the dressing hold. He was managed there for UTI urinary retention and had a Marx catheter placed. He was discharged back to snf facility and went home again and comes back this time with visual hallucinations and confusion for the past couple of days before admission. Family was concerned that this is how he got whenever he had a UTI. He lived at home with his and son who help care for him. He denied any fever or chills, admitted to some nausea but no vomiting, shortness of breath or abdominal pain. He admitted to intermittent dysuria. Review of systems otherwise negative. Vitals in the ED were blood pressure 118/61, pulse rate of 76, respiratory rate of 18 and temperature of 97.7 Fahrenheit. He was saturating at 93% on room air. CBC showed WBC of 7.4, hemoglobin of 12.1 and platelets of 150. Chemistry showed sodium of 135 with potassium of 4.4 and bicarb of 22.1. Anion gap was 13. Creatinine was 1.77 which is around his baseline. Urinalysis showed more than 100 WBC and 2+ bacteria which was similar to previous urinalysis. Leukocyte esterase was also 500 which was similar to previous urinalysis. Chest x-ray showed probable atelectasis in the right lower lobe with developing infiltrate less likely given morphology. He has been admitted to be managed for acute encephalopathy in the setting of Parkinson's disease with dementia with possible UTI. I question whether he has a UTI again as his urine is similar to previous urinalysis and it is likely chronic colonization." Palliative Assessment Advanced Directive - Current Admission Advance Directive: Advance Directive ON ADMISSION - REFERENCE 3 Which Advance Directives None 02/15/25 00:43 documents are scanned in? Do you have a Healthcare No 02/14/25 21:49 Living Will? Do you have a Healthcare Power No 02/14/25 21:49 of [place] [employer]? Do You Want Additional Declined 02/14/25 21:49 Information on Advanced Directives or Healthcare Proxy/DPOA comments: Psychosocial/Spiritual Information Living situation/Marital status: lives with in [place]ographic location: [place] Supports: family Jainism/Ximena or spiritual preference: Sikh of [employer] Spiritual distress: denies Prior functional status: unable to cook for self relies of needs assistance with ADL's. Pt is mostly in bed Assistive devices at home: walker Information about the patient as a person: Pt worked in a [employer] before [employer]. He enjoys hunting, watching TV- sports and game shows. Symptoms Palliative performance scale: 30% Palliative prognostic index: 7.5 prognosis is guarded as patient does have multiple comorbidities and is mostly bedbound. Constipation symptoms: Mild Nausea symptoms: None Vomiting symptoms: None Depression symptoms: None Anorexia symptoms: None Cough symptoms: None Insomnia symptoms: None Diarrhea symptoms: None Fatigue symptoms: Mild Weakness symptoms: Mild Confusion symptoms: Moderate (intermittent confusion. ) Objective Data Objective Data Vital Signs: Vital Signs Temp Pulse Resp BP Pulse Ox O2 Del Method 97.9 F 62 18 132/62 H 100 Room Air 02/16/25 07:33 02/16/25 07:33 02/16/25 07:33 02/16/25 07:33 02/16/25 07:33 02/16/25 07:52 Oxygen Delivery Method Room Air Weight: 324 lb 4.8 oz Body Mass Index (BMI) 47.9 Intake & Output: Intake and Output for Last 24 Hours 02/14/25 02/15/25 02/16/25 23:59 23:59 23:59 Intake Total 3540 / 3540 Output Total 1250 / 1250 300 / 300 Balance 2290 / 2290 -300 / -300 Lab / Micro Data Attestation: I reviewed the patient's lab results. 02/16/25 05:50 02/15/25 06:49 Labs: Laboratory Results - last 24 hr 02/15/25 11:29: POC Glucose 135 H 02/15/25 16:09: POC Glucose 116 H 02/15/25 21:49: POC Glucose 147 H 02/16/25 05:50: WBC 6.1, RBC 3.61 L, Hgb 11.3 L, Hct 33.9 L, MCV 93.9, MCH 31.3, MCHC 33.3, RDW Std Deviation 55.4 H, RDW Coeff of Veronica 15.9 H, Plt Count 112 L, MPV 8.7, Immature Gran % (Auto) 1.000 H, Neut % (Auto) 55.0, Lymph % (Auto) 30.3, Cocke % (Auto) 7.7, Eos % (Auto) 5.3 H, Baso % (Auto) 0.7, Absolute Neuts (auto) 3.4, Absolute Lymphs (auto) 1.84, Nucleated RBC % 0 02/16/25 06:16: POC Glucose 117 H Micro: Microbiology 02/14/25 23:24 Urine, Random Urine Culture - Preliminary Gram positive organism Mixed Gram Positive Organisms Impressions & Recommendations Patient & Family Issues discussed with the patient and family: goals Patient goal: go home Ethical & Legal Ethical and legal: will most likely require POA guided decisions Impressions Impressions: pt has chronic diseases that would benefit from outpatient services Recommentation Palliative recommendations: out pt palliative care Encouter Achieved as a result of this Palliative Care Encounter: [ [id number], [id number], [id number]] minutes were spent in total for this visit which consisted, primarily of counseling and education dealing with the complex and emotionally intense issues of symptom management and palliative care in the setting of serious and potentially life-threatening illness. Review of documentation, labs and radiological studies. Patient/family had the opportunity to ask questions Plan (1) Encephalopathy: QUALIFIERS: Encephalopathy type: unspecified encephalopathy Q ualified Code(s): G93.40 - Encephalopathy, unspecified PLAN: Medical management per IDT (2) Visual hallucinations: PLAN: Medical management per IDT (3) Physical debility: PLAN: Recommend PT/OT evaluation and treatment (4) Inability to walk: PLAN: Recommend PT/OT evaluation and treatment (5) Goals of care, counseling/discussion: PLAN: *Family meeting to discuss goals of care *Family has elected [facility] *Open to SNF if needed (6) Palliative care encounter: PLAN: *Recommendation of palliative outpatient services. *Updated social human services assistants about family choice *Updated [facility] about pending referral.
[2025-02-16] MEDS: Glucerna Shake 120 ML LIQUID PO (10:11)
[2025-02-16 10:59] VITALS: BP 145/69; PULSE 68; RESP 16; TEMP 36.5; O2SAT 97
--- NOTE | 2025-02-16 11:12 | CASEMGMT ---
Addendum entered by Frieda Willoughby 02/16/25 16:21: Per hospitalist, pt is dc'ing this date. TC to Brianna at [facility], she is aware. They will reach out to PCP to confirm that she will continue to follow pt. [facility] will be in touch with pt to set up a time to come to the home. TC to pt . She is aware that [facility] will be in touch and that Palliative Care should be contacting her as well. She is also aware that urology cannot be consulted in the hospital and pt will need to follow up as an outpt. She denies any questions and is aware pt will dc this date. Addendum entered by Frieda Willoughby 02/16/25 16:06: Received confirmation from Brianna at [facility] that message was received regarding PCP and she states they will reach out also to confirm this. If all is well and pt is dc'd tomorrow, they will plan to see pt on Thursday. CHARLOTTE STRICKLAND to follow. Addendum entered by Frieda Willoughby 02/16/25 15:42: Correction: Referral sent to [facility] via [facility]. Addendum entered by Frieda Willoughby 02/16/25 15:31: CHARLOTTE STRICKLAND back into pt room to give business card to . She states that the visiting TORCH STRAIGHTENER texted back and states that she will see pt upon dc again. She showed CHARLOTTE STRICKLAND the text. TC to Brianna at [facility] to make aware, left vm and requested returned call to make sure [facility] can continue. Received a returned call from Dr. Brand's office and there are no office hours on Fridays so the appt could not be made for pt to go straight over there after dc if pt dc's tomorrow. Pt called this CHARLOTTE STRICKLAND and requested that Raysa from [facility] Care be notified that pt still has his PCP, backlined her at this time. Pt also aware of that an appt cannot be made with Dr. Brand tomorrow. She states she requests him see pt in the hospital as she prefers that the pt be dc'd with a rosenberg. Message to hospitalist to make aware. Addendum entered by Frieda Willoughby 02/16/25 15:26: Raysa from [facility] Care made aware that pt chose [facility] for [facility]. CHARLOTTE STRICKLAND into pt room, pt working with CLIENT SERVICE MANAGER, he is agreeable to RN CM speaking with . Pt states that she and patient have chosen [facility] for PC and she is aware that this RN CM will make the referral. CHARLOTTE STRICKLAND gave a handout on another visiting physician- Silvina Jin. Pt states that pt was with them for 2 yrs but they had to dc due to them not taking his insurance. She states she messaged the TOR[employer] STRAIGHTENER Maite and is awaiting a returned response to see if she would give susanne and still see pt. She states she only cancelled one appt because they were moving. She will notify RN CM if she hears from her. She states pt did not f/u with urologist because she cannot get pt out of the house. She states they were going to follow with Dr. Brand. Made aware this RN CM could check and see if they have any appt availbility after dc from the hospital so pt could go directly there then home. She states that would be fine and she is planning on transporting pt home. TC to 's office, left with appt line explaining this information with request for returned call. Referral sent to [facility] via email for palliative care. Addendum entered by Frieda Willoughby 02/16/25 11:21: TC to pt to make aware of PCP who will no longer follow and the implications of this on [facility]. She states the PCP was through [employer]. She is meeting with Raysa at 2pm for Palliative Care. CHARLOTTE STRICKLAND to meet with her after this meeting. Updated Raysa with Palliative of this information also. Original Note: Received tc from Brianna at [facility] stating that pt PCP is no longer going to see pt as he has declined multiple visits. Pt no longer has PCP at this point and [facility] has to dc pt due to this.
[2025-02-16 14:06] VITALS: BP 159/60; PULSE 75; RESP 17; TEMP 36.7; O2SAT 94
[2025-02-16] MEDS: Magnesium Citrate 300 ML PO (14:29)
--- NOTE | 2025-02-16 16:24 | PCM.DC.SUM ---
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 EMERGENT Consult: No MD Notified: Yes Date Notified: 02/15/25 Time Notified: 14:47 Method of Notification: Text Reason For Visit: ACUTE ENCEPHALOPATHY Diagnosis Discharge Diagnosis (1) Encephalopathy: Status: Acute Code(s): G93.40 - Encephalopathy, unspecified Qualifiers: Encephalopathy type: unspecified encephalopathy Qualified Code(s): G93.40 - Encephalopathy, unspecified (2) Visual hallucinations: Status: Acute Code(s): R44.1 - Visual hallucinations (3) Physical debility: Status: Acute Code(s): R53.81 - Other malaise (4) Inability to walk: Status: Acute Code(s): R26.2 - Difficulty in walking, not elsewhere classified (5) Goals of care, counseling/discussion: Status: Acute Code(s): Z71.89 - Other specified counseling (6) Palliative care encounter: Status: Acute Code(s): Z51.5 - Encounter for palliative care Plan 74-year-old gentleman admitted with acute metabolic encephalopathy secondary to UTI 1 Acute metabolic encephalopathy Secondary to acute complicated cystitis.Urinalysis obtained on admission demonstrated pyuria as well as positive leukocyte esterase. Patient started on ceftriaxone urine culture sent – 02/16/2025; patient sensorium back to baseline 2. Acute cystitis with Yeast Like Organism – Patient started on ceftriaxone on admission urine culture still pending- Urine Cx came positive Yeast Like Organism [place] Count >100,000 CFU/mL. Patient was discharged home on Fluconazole 200mg daily x 7 days 3. Parkinson's disease with dementia – Patient is on pramipexole as well as donepezil 4. Diabetes mellitus type II -patient's oral hypoglycemics held. Placed on long acting insulin, Accu-Cheks a.c. and at bedtime and covered with sliding scale insulin 5. Hypothyroidism – Patient is on levothyroxine home dose continued 6. BPH with lower urinary obstructive symptoms - Patient treated with tamsulosin 7. Dyslipidemia – Patient is on his ezetimibe 8. Gout – On allopurinol 9. 5. Class III obesity with BMI of 47.9 – Complicating care weight loss advised 10. Recently diagnosed bilateral lower extremity DVT – Patient is on apixaban continue Time spent in the patient's overall evaluation,decision-making process, review of diagnostic data, adjustment of management, discussion with other providers, nursing nursing and ancillary staff involved in patient's care documentation, 38 Minutes Medications at Discharge Home Medications allopurinol 100 mg tablet 100 mg PO DAILYCM gout 05/03/13 donepezil 10 mg tablet 10 mg PO QHS dementia 03/18/24 dulaglutide 3 mg/0.5 mL subcutaneous pen injector (Trulicity) 3 mg subcut QWEEK diabetes 03/18/24 duloxetine 60 mg capsule,delayed release 60 mg PO DAILY depression 03/18/24 empagliflozin 25 mg tablet (Jardiance) 25 mg PO DAILY diabetes 03/18/24 ezetimibe 10 mg tablet 10 mg PO DAILY cholesterol 03/18/24 levothyroxine 50 mcg tablet 50 mcg PO DAILY thyroid 03/18/24 lisinopril 2.5 mg tablet 2.5 mg PO DAILY blood pressure 03/18/24 pramipexole 0.125 mg tablet 0.125 mg PO BID parkinsons 03/18/24 tamsulosin 0.4 mg capsule 0.4 mg PO DAILY urine flow 10/15/24 gabapentin 800 mg tablet 400 mg (1/2 x 800 mg) PO TIDCM nerve pain #45 tabs 10/19/24 quetiapine 50 mg tablet 50 mg PO DAILY mental health 01/07/25 trazodone 50 mg tablet 100 mg PO QHS sleep 01/07/25 acetaminophen 325 mg tablet 650 mg (2 x 325 mg) PO Q4H PRN PRN Fever, pain -02/10 #0 tabs 01/10/25 insulin lispro 100 unit/mL subcutaneous pen (Humalog KwikPen (U-100) Insulin) See Protocol subcut ACHS #0 mL 01/10/25 sennosides 8.6 mg-docusate sodium 50 mg tablet (Stimulant Laxative Plus) 2 tab PO BID #0 tabs 01/10/25 tramadol 50 mg tablet 50 mg PO TID pain 30 days #90 tabs 01/24/25 tizanidine 4 mg tablet 4 mg PO QPM 02/14/25 fluconazole 100 mg tablet 200 mg (2 x 100 mg) PO DAILY #7 tabs 02/16/25 insulin glargine 100 unit/mL (3 mL) subcutaneous pen (Basaglar KwikPen U-100 Insulin) 50 unit (0.5 mL) subcut QPM diabetes #15 mL 02/16/25 quetiapine 100 mg tablet 50 mg PO BID dementia 02/16/25 Physical Exam Narrative GENERAL: cooperative HEENT: Atraumatic; normocephalic EYES; Anicteric, Normal Conjunctiva NECK; supple, normal thyroid, RESPIRATORY: Diminished to auscultation CARDIOVASCULAR: Regular S1 S2, GI: soft, normoactive bowel sounds, : No Renal angle tenderness; EXTREMITIES: No edema, no clubbing, MUSCULOSKELETAL: no muscle wasting NEURO: Awake; no lateralizing signs. SKIN: Stasis dermatitis involving both lower extremity PSYCH; Flat affect Weight / BMI Weight Weight: 147.1 kg Body Mass Index (BMI) 47.9 ABG / Lab / Microbiology Data 02/16/25 05:50 02/15/25 06:49 Laboratory: Laboratory Results - last 24 hr 02/15/25 16:09: POC Glucose 116 H 02/15/25 21:49: POC Glucose 147 H 02/16/25 05:50: WBC 6.1, RBC 3.61 L, Hgb 11.3 L, Hct 33.9 L, MCV 93.9, MCH 31.3, MCHC 33.3, RDW Std Deviation 55.4 H, RDW Coeff of Veronica 15.9 H, Plt Count 112 L, MPV 8.7, Immature Gran % (Auto) 1.000 H, Neut % (Auto) 55.0, Lymph % (Auto) 30.3, [place] % (Auto) 7.7, Eos % (Auto) 5.3 H, Baso % (Auto) 0.7, Absolute Neuts (auto) 3.4, Absolute Lymphs (auto) 1.84, Nucleated RBC % 0 02/16/25 06:16: POC Glucose 117 H 02/16/25 11:23: POC Glucose 112 H Microbiology: Microbiology 02/14/25 23:24 Urine, Random Urine Culture - Preliminary Yeast Like Organism Mixed Gram Positive Organisms D/C Instructions DC O2, CPAP, BIPAP Needs Home O2 Discharge instructions: No Meaningful Use Info Meaningful Use Meaningful Use Diagnoses (Choose all that apply): None applicable Discharge Plan Admission Admit Date/Time: 02/15/25 00:11 Attending Provider: Ryan Elder Primary Care Provider: ABHISHEK ST Consulting Providers: Kadie Cheung; Raysa Polanco Discharge Orders/Prescriptions Prescriptions: New fluconazole 100 mg Tablet 200 mg PO DAILY Qty: 7 0RF Continued allopurinol 100 MG tablet 100 mg PO DAILYCM tamsulosin 0.4 mg capsule 0.4 mg PO DAILY gabapentin 800 MG tablet 400 mg PO TIDCM Qty: 45 0RF tizanidine 4 mg tablet 4 mg PO QPM quetiapine 100 mg tablet 50 mg PO BID donepezil 10 mg tablet 10 mg PO QHS Trulicity 3 mg/0.5 mL pen injector 3 mg subcut QWEEK duloxetine 60 mg capsule,delayed release(DR/EC) 60 mg PO DAILY lisinopril 2.5 mg tablet 2.5 mg PO DAILY pramipexole 0.125 mg tablet 0.125 mg PO BID ezetimibe 10 mg tablet 10 mg PO DAILY Jardiance 25 mg tablet 25 mg PO DAILY levothyroxine 50 mcg tablet 50 mcg PO DAILY trazodone 50 mg Tablet 100 mg PO QHS Rx Instructions: Home medication. quetiapine 50 mg tablet 50 mg PO DAILY acetaminophen 325 mg Tablet 650 mg PO Q4H PRN PRN (Reason: Fever, pain 1-02/10) Qty: 0 0RF sennosides-docusate sodium [Stimulant Laxative Plus] 8.6-50 mg Tablet 2 tab PO BID Qty: 0 0RF insulin lispro [Humalog KwikPen Insulin] 100 unit/mL Insulin Pen See Protocol subcut ACHS Qty: 0 0RF Protocol: 3. Sliding Scale Insulin Med Dosing Condition: 150-189 mg/dl = 1 unit Condition: 190-229 mg/dl = 2 units Condition: 230-269 mg/dl = 3 units Condition: 270-309 mg/dl = 4 units Condition: 310-349 mg/dl = 5 units Condition: 350-399 mg/dl = 6 units Condition: 400-449 mg/dl = 7 units Condition: Greater than 449 call physician Protocol Text: - Use for Total Daily Dose of Insulin 37-55 units - Obsese, infected, or steroid patients MEDIUM DOSING ALGORITHIM tramadol 50 mg tablet 50 mg PO TID 30 Days Qty: 90 0RF Changed insulin glargine [Basaglar KwikPen U-100 Insulin] 100 unit/mL (3 mL) insulin pen 50 unit subcut QPM Qty: 15 0RF Discontinued glipizide 10 mg tablet extended release 24hr 10 mg PO DAILY Referrals / Follow Up: ABHISHEK ST CRNP [Primary Care Provider, Family Practice] - Within 1 Week Disposition Disposition (needs filled in before D/C Order can be placed): Home, Self Care Charges/Coding Visit Charges Inpatient E&M: 04998 Disch Hosp >30min
[2025-02-16 16:28] LABS: Anion Gap 10 (5-15); BUN 15 mg/dL (4-19); BUN/Creat Ratio 10.2 RATIO (10-20); Calcium,Total 8.3 mg/dL (7.6-11.0); Carbon Dioxide 22.1 mmol/L (21.0-32.0); Chloride 105 mmol/L (98-108); Estimated Creatinine Clearance 60.54 ml/min (50-250); Glucose 116 mg/dL (70-99); Magnesium 2.0 mg/dL (1.5-2.2); Potassium 4.1 mmol/L (3.3-5.1)
--- NOTE | 2025-02-17 10:22 | CASEMGMT ---
Addendum entered by Frieda Willoughby 02/17/25 10:29: TC to [facility], spoke with Radha, she states referral was received and will be reaching out to pt to set up visit time. Original Note: Faxed dc instructions to [facility] at this time.
--- NOTE | 2025-03-10 11:38 | CASEMGMT ---
Palliative referral follow-up: CHARLOTTE STRICKLAND placed call to pt's , Ariadna, to follow-up on referral sent to [facility] 02/16. Per , [facility] has not been out so see pt yet. She stated she just spoke w/[facility] this morning and they informed her they need to submit for insurance approval before coming to see pt. Gissell CRISTOBALN CHARLOTTE STRICKLAND
== END 2025-02-16 17:05 | disposition home health service (06) ==
LOC: ED 23:53 → MS3 02-15 01:05
PROVIDERS: Admitting Provider Student in an Organized Health Care Education/Training Program; Emergency Provider Student in an Organized Health Care Education/Training Program; PCP Nurse Practitioner Family; Visit Provider Internal Medicine
DX: N30.00 Acute cystitis without hematuria (principal); G20.A1 Parkinson's disease without dyskinesia, without mention of fluctuations; F02.80 Dementia in other diseases classified elsewhere, unspecified severity, without behavioral disturbance, psychotic disturbance, mood disturbance, and anxiety; Z68.42 Body mass index [BMI] 45.0-49.9, adult; E66.813 Obesity, class 3; E11.22 Type 2 diabetes mellitus with diabetic chronic kidney disease; Z79.4 Long term (current) use of insulin; N18.30 Chronic kidney disease, stage 3 unspecified; G93.41 Metabolic encephalopathy; Z51.5 Encounter for palliative care; E03.9 Hypothyroidism, unspecified; I12.9 Hypertensive chronic kidney disease with stage 1 through stage 4 chronic kidney disease, or unspecified chronic kidney disease; E78.5 Hyperlipidemia, unspecified; M10.9 Gout, unspecified; R26.2 Difficulty in walking, not elsewhere classified; F41.8 Other specified anxiety disorders; R44.1 Visual hallucinations; N13.8 Other obstructive and reflux uropathy; Z66 Do not resuscitate; N40.1 Benign prostatic hyperplasia with lower urinary tract symptoms; Z79.01 Long term (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 of anticoagulants; Z79.899 Other long term (current) drug therapy; Z79.85 Long-term (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 of injectable non-insulin antidiabetic drugs; Z79.84 Long term (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 of oral hypoglycemic drugs; Z79.890 Hormone replacement therapy; Z86.718 Personal history of other venous thrombosis and embolism
CPT/HCPCS: 36415; 71046; 80048; 81001; 82962; 83735; 84100; 85025; 87077; 87086; 87088; 93005; 96361; 96365; 96366; 97162; 97165; 97530; 97802; 99221; 99285; A4216; G0378; J0696